=== PATIENT | male | born 1950 | race Caucasian/White ===

== ENCOUNTER → 2019-02-01 14:56 | Outpatient (CLI) | payer MEDICARE, SELFPAY ==
[2015-01-17 04:03] VITALS: BMI 32.4
[2019-02-01 17:59] LABS: AST(SGOT) 27 U/L (15-37); Alanine Aminotransfer ALT/SGPT 36 U/L (16-61); Albumin, Serum 4.1 g/dL (3.2-5.0); Alkaline Phosphatase 56 U/L (45-117); Bilirubin, Direct 0.14 mg/dL (0.00-0.30); Globulin 3.9 g/dL (2.2-4.2)
[2019-02-05 17:13] LABS: Comment 1a (.)
[2019-02-06 11:18] LABS: AFP, Tumor Marker 1.3 ng/mL (0.0-8.3)
[2019-03-21 17:18] LABS: Hepatitis C Genotype 1a
== END ==
PROVIDERS: Family Provider Family Medicine; PCP Family Medicine; Referring Provider Internal Medicine Gastroenterology; Visit Provider Internal Medicine Gastroenterology
DX: B19.20 Unspecified viral hepatitis C without hepatic coma (principal)
CPT/HCPCS: 36415; 80076; 82105; 87902

== ENCOUNTER → 2020-11-19 12:34 | Outpatient (CLI) | payer MEDICARE, SELFPAY ==
[2020-10-30 09:49] VITALS: BMI 31.8
--- NOTE | 2020-11-19 12:38 | ECHOD_ITS ---
Reason For Study: Syncope Procedure This was a 2D Doppler, Color Flow transthoracic echocardiogram. Left Ventricle Normal LV size. Left ventricular systolic function is normal. The estimated ejection fraction is 65 %. Stage 1 diastolic dysfunction. No regional wall motion abnormalities noted. Right Ventricle Normal RV size. Normal systolic function. Atria The left atrium is moderately enlarged. Normal right atrium. Bubble contrast study negative for right to left interatrial shunt. Mitral Valve Normal mitral valve. Mild (1+) eccentric mitral valve insufficiency. Tricuspid Valve Normal tricuspid valve. Mild tricuspid valve insufficiency. Pulmonary artery systolic pressure is 30 mmHg. Aortic Valve Trisinus/trileaflet aortic valve. Mild focal aortic valve calcification. Pulmonic Valve Normal pulmonic valve. Great Vessels Normal aortic root. The pulmonary artery is normal size. Normal inferior vena cava. Pericardium/Pleural No pericardial effusion. Medication 22 gauge I.V. with prn adaptor inserted into right arm. Performed a rapid injection of agitated mix of 9 cc saline and 1cc air to assess for atrial septal defect. MMode/2D Measurements & Calculations LVIDd: 5.4 cm IVSd: 1.1 cm LA dimension: 4.2 cm LVIDs: 3.9 cm LVPWd: 0.89 cm FS: 28.2 % LAV(MOD-bp): 94.0 ml LA A4 area: 27.1 cm2 RA A4 area: 15.6 cm2 LAV(MOD-bp) Indexed: 42.2 ml/m2 LAV(MOD-sp2): 89.7 ml LAV(MOD-sp4): 91.2 ml Time Measurements MV dec time: 0.28 sec Doppler Measurements & Calculations MV E max cosmo: 65.7 cm/sec Lat Peak E' Cosmo: 6.6 cm/sec Med Peak E' Cosmo: 7.1 cm/sec MV A max cosmo: 84.1 cm/sec E/E' lat: 9.9 E/E' med: 9.3 MV E/A: 0.78 MV V2 max: 79.6 cm/sec MV P1/2t max cosmo: 57.6 cm/sec Ao V2 max: 165.0 cm/sec MV max P.5 mmHg MV P1/2t: 106.1 msec Ao max P.9 mmHg MV V2 mean: 43.3 cm/sec MV dec slope: 159.0 cm/sec2 MV mean P.87 mmHg MV V2 VTI: 21.8 cm MVA(P1/2t): 2.1 cm2 LV V1 max: 81.9 cm/sec PA V2 max: 85.7 cm/sec TR max cosmo: 257.3 cm/sec LV V1 max P.7 mmHg TR max P.5 mmHg Interpretation Summary Normal LV size. Left ventricular systolic function is normal. The estimated ejection fraction is 65 %. Mild tricuspid valve insufficiency. Pulmonary artery systolic pressure is 30 mmHg. Stage 1 diastolic dysfunction. The left atrium is moderately enlarged. Bubble contrast study negative for right to left interatrial shunt. Ordering Physician: Braeden Flores Referring Physician: Julio Cesar Abbasi Performed By: Desmond Mcclellan RCS
--- NOTE | 2020-11-19 12:38 | CDU_ITS ---
Reason For Study: Syncope Rt. Velocities/BP Lt. Velocities/BP Prox CCA 141.1/18.2 cm/sec. Prox CCA 72.1/17.3 cm/sec. Mid CCA 81.4/16.3 cm/sec. Mid CCA 80.6/22 cm/sec. Dist CCA 67.9/15.1 cm/sec. Dist CCA 57.9/14.5 cm/sec. Prox ICA 55.3/11.3 cm/sec. Prox ICA 58.6/14.6 cm/sec. Mid ICA 64/25.6 cm/sec. Mid ICA 50.9/16.8 cm/sec. Dist ICA 60.8/20.1 cm/sec. Dist ICA 66.3/24.5 cm/sec. Rt. ICA/CCA = 0.8. Lt. ICA/CCA = 0.9. Prox ECA 122.9/17 cm/sec. Prox ECA 84.9/13.5 cm/sec. Rt. Vert. 32.2/10.9 cm/sec. Lt. Vert. 38.8/15.7 cm/sec. Right Extracranial There is homogeneous, smooth atherosclerotic plaque noted in the right common carotid artery. There is heterogeneous, irregular atherosclerotic plaque noted in the right internal carotid artery. There is heterogeneous, irregular atherosclerotic plaque noted in the right external carotid artery. Antegrade flow is noted in the right vertebral artery. Left Extracranial There is homogeneous, smooth atherosclerotic plaque noted in the left common carotid artery. There is heterogeneous, irregular atherosclerotic plaque noted in the left internal carotid artery. There is heterogeneous, irregular atherosclerotic plaque noted in the left external carotid artery. Antegrade flow is noted in the left vertebral artery. Procedure Carotid Duplex 94412. This is a Carotid Duplex examination using B-mode, color flow and specral Doppler. Exam performed in department. Interpretation Summary Irregular calcific plaque at the distal right common carotid and proximal right internal and external carotid arteries <50% stenosis right internal carotid <50% stenosis right external carotid Irregular calcific plaque with shadowing at the distal left common carotid and proximal left internal and external carotid arteries <50% stenosis left internal carotid <50% stenosis left external carotid Patent and antegrade vertebrals bilaterally Ordering Physician: Braeden Flores Referring Physician: Julio Cesar Abbasi Performed By: Maria E Salinas RVT
== END ==
PROVIDERS: PCP Family Medicine; Referring Provider Internal Medicine Cardiovascular Disease; Visit Provider Internal Medicine Cardiovascular Disease
DX: R55 Syncope and collapse (principal)
CPT/HCPCS: 93306; 93880; A4216

== ENCOUNTER 2022-03-29 04:59 | Emergency (ER) | payer MEDICARE, SELFPAY ==
[2022-03-29] VITALS (8 sets, daily range): BP systolic 120–174; BP diastolic 74–100; PULSE 71–88; RESP 13–22; TEMP 35.9–36.8; O2SAT 85–98; BMI 32.1
[2022-03-29] MEDS: dexAMETHasone 10 MG/ML Vial IV (05:14)
[2022-03-29] MEDS: HYDROmorphone 1 MG/ML Syringe IV ×4 (05:14→06:55)
[2022-03-29] MEDS: Ondansetron 4 MG/2 ML Vial IV (05:14)
--- NOTE | 2022-03-29 05:21 | CT_ITS ---
STUDY: CT LUMBAR SPINE WITHOUT CONTRAST REASON FOR EXAM: Male, 71 years old. post operative pain / ? Hematoma RADIATION DOSAGE (If Supplied By Facility): CTDIvol = ( 26.25 ) mGy, DLP = ( 795.37 ) mGycm TECHNIQUE: The patient was scanned in a multi detector CT scanner. High resolution transaxial imaging was performed. Images were obtained from to . Sagittal and coronal images were reconstructed. Individualized dose optimization techniques were used for this CT. COMPARISON: None FINDINGS: Normal lumbar lordosis. There is no substantial scoliosis. Normal vertebrae of the lumbar spine. L1-2, L2-3, L5-S1: Normal endplates. Normal disc height and morphology. Normal bilateral facet joints. Normal central canal and bilateral lateral recesses. Normal bilateral intervertebral neural foramina. L3-4, L4-5: Endplate spondylosis. Bilateral laminectomy Decreased disc height and small circumferential disc bulge. Degenerative changes of the bilateral facet joints. Mild narrowing of the bilateral intervertebral neural foramina. Normal visualized paraspinous soft tissue structures. CT/Spine Lumbar without Contrast IMPRESSION: Multilevel degenerative changes, as described above. Electronically Signed: Clarke Roy MD at 6:11 EDT ,
--- NOTE | 2022-03-29 05:22 | EDS_ITS ---
HPI History of Present Illness Chief Complaint: Back Narrative Narrative: Patient is a 71-year-old male who had back surgery at an outside facility 9 days ago. He states that during the surgery they nicked something and he had to stay a few extra days in the hospital. He states he has been doing well and he denies any fevers or chills or bowel or bladder dysfunction. He states she has been no trauma or excessive activity. He reports he was able to go to bed yesterday but then awoke around 4 in the morning with severe pain in his low back which radiates into his right buttocks region. Secondary to the sudden onset of increased pain and his recent surgery he was concerned and therefore presents for evaluation. [facility] Medical History Anxiety Essential (primary) hypertension Hepatitis A History of fractured rib (08/12/20) Osteoarthritis Home Medications amlodipine 10 mg tablet 10 mg PO DAILY 10/28/20 [History Last Taken 03/28/22] omega-3 fatty acids 1,000 mg capsule 1,000 mg PO DAILY 10/28/20 [History Last Taken 03/28/22] trazodone 150 mg tablet 150 mg PO QHS tab 10/30/20 [History Last Taken 03/28/22] docusate sodium 100 mg PO BID 03/29/22 [History Last Taken 03/28/22] gabapentin 600 mg PO TID 03/29/22 [History Last Taken 03/28/22] lisinopril 10 mg PO DAILY 03/29/22 [History Last Taken 03/28/22] methocarbamol 750 mg PO Q6H PRN PRN 03/29/22 [History Last Taken Unknown] oxycodone-acetaminophen 1 tab PO Q6H PRN PRN 03/29/22 [History Last Taken Unknown] Allergy/AdvReac Type Severity Reaction Status Date / Time diltiazem [From Cardizem] AdvReac unknown Verified 10/30/20 09:48 losartan [From Hyzaar] AdvReac unknown Verified 10/30/20 09:48 metoprolol [From Lopressor] AdvReac unknown Verified 10/30/20 09:48 valsartan [From Diovan] AdvReac unknown Verified 10/30/20 09:48 Family History Mother Heart disease Cancer breast Sister Heart disease Surgical History (Updated 03/29/22 @ 06:[address] Luis Angel Whitney DO) History of elbow surgery History of hip replacement History of lumbar laminectomy for spinal cord decompression History of shoulder surgery Social History (Updated 10/30/20 @ 10:[address] Braeden Flores MD) Smoking Status: Former smoker quit date: 11/22/92 pack-years: 46 alcohol intake: former year quit: 1991 ROS ROS ED Constitutional Constitutional ED: Denies chills or fever(s) ENT ENT ED: Denies sore throat Cardiovascular Cardiovascular: Denies chest pain Respiratory/Chest Respiratory/Chest: Denies cough or dyspnea Gastrointestinal Gastrointestinal: Denies abdominal pain, diarrhea, nausea or vomiting Genitourinary Genitourinary ED: Denies dysuria or hematuria Musculoskeletal Musculoskeletal: Reports back pain; Denies myalgias Integumentary Denies rash Neurologic Neurologic: Reports paresthesias and weakness; Denies headache(s) Hematologic/Lymphatic Hematologic/Lymphatic: Denies easy bleeding or easy bruising EXAM Physical Exam Const Vital Signs: 03/29/22 05:00 03/29/22 06:34 03/29/22 07:20 Temperature 96.6 F L 98.3 F Temperature Source Temporal Temporal Pulse Rate 78 74 71 Respiratory Rate 22 H 20 H 16 Blood Pressure 174/100 H 164/81 H 124/75 H Blood Pressure Mean 124 108 91 Pulse Ox 98 96 96 Oxygen Delivery Method Room Air Room Air Oxygen Flow Rate (L/min) 03/29/22 07:40 03/29/22 08:04 Temperature Temperature Source Pulse Rate Respiratory Rate Blood Pressure Blood Pressure Mean Pulse Ox 96 97 Oxygen Delivery Method Nasal Cannula Nasal Cannula Oxygen Flow Rate (L/min) 4 2 Positive well nourished and well developed General Appearance ED: well developed Eyes PERRL and EOMs intact bilaterally Neck supple Resp normal respiratory effort and clear to auscultation bilaterally Cardio regular rate and regular rhythm Rate: other Other Details: Radial pulses are plus 2 out of 4 bilaterally are equal and symmetric GI non-tender, non-distended and no masses GI Narrative: Bowel sounds are hypoactive. No voluntary guarding or rigidity. No pulsatile mass or fluid wave. Palpation: soft Narrative: Rectal tone is normal Back/Spine Back/Spine Narrative: Patient has postsurgical incision to the upper/mid lumbar region. There is soft tissue swelling around the incision as well as mild ooze of blood from the uppermost section of the surgical incision. Despite these changes there is no surrounding erythema or severe warmth no lymphangitic streaking. Extremity Extremity Narrative: Patient has mild saddle anesthesia present but does report that he believes this is been chronic in nature. Patellar reflexes are plus 1 out of 4 bilaterally. Straight leg raise is negative. No clonus or Babinski noted. Neuro oriented x3 and CN's II-XII intact bilaterally Sensorium / Orientation: alert Psych mental status grossly normal Skin no rashes or lesions noted Skin Narrative: Postsurgical changes to the back as documented above MDM MDM MDM Narrative Medical decision making narrative: Patient presented to the ER hypertensive but otherwise afebrile and in no acute distress. She had surgery 9 days ago and there was concern for postoperative infection as a cause of his worsening pain but also as he is got some swelling around the surgical site with mild ooze of serosanguineous fluid I have concern that he could be developing a hematoma. Secondary to this basic blood work and a noncontrast CT were ordered. Blood work revealed no white count no left shift no elevation to his CRP or ESR and his lactic was minimally elevated by 0.1 not consistent with acute infection. The CT scan showed postoperative changes as well as degeneration but no obvious fluid collection or neurologic. The case was discussed with his neurosurgeon Dr. Calderón. At this time he recommends trying to control the patient's pain but he agrees that if the pain is intractable and the patient is not able to ambulate that he could be sent to their facility for further care. He stated that if this was needed patient can be admitted to medicine service with him on as consult. The patient was given a total of 4 mg of IV Dilaudid as well as 10 mg of IV Decadron. While at rest the patient did report improvement of his pain from a 9/10 down to a 5. We attempted to ambulate the patient with a walker which he uses at home but he was unable to do so. Therefore at this time as the patient still having persistent pain and is unable to ambulate he will have to be transferred to [facility] for continued care and further evaluation. Lab Data Attestation: I reviewed the patient's lab results. Labs: Laboratory Results - last 24 hr 03/29/22 03/29/22 03/29/22 05:08 05:08 05:08 WBC 7.1 RBC 4.49 L Hgb 14.4 Hct 42.7 MCV 95.1 H MCH 32.1 H MCHC 33.7 RDW Std Deviation 42.0 RDW Coeff of Matthew 11.9 Plt Count 256 MPV 9.4 Immature Gran % (Auto) 0.400 Neut % (Auto) 50.5 Lymph % (Auto) 28.1 [place] % (Auto) 15.1 H Eos % (Auto) 4.8 Baso % (Auto) 1.1 H Absolute Neuts (auto) 3.6 Absolute Lymphs (auto) 1.99 Nucleated RBC % 0 ESR 10 PT INR APTT Sodium 136 Potassium 3.9 Chloride 104 Carbon Dioxide 23.0 Anion Gap 9 BUN 19 H Creatinine 1.07 Estim Creat Clear Calc 66.46 Est GFR (MDRD) Af Amer 87 Est GFR (MDRD) Non-Af 72 BUN/Creatinine Ratio 17.8 Glucose 123 H Lactic Acid 2.1 H* Calcium 8.8 C-React Prot Ext Range < 2.90 03/29/22 05:25 WBC RBC Hgb Hct MCV MCH MCHC RDW Std Deviation RDW Coeff of Matthew Plt Count MPV Immature Gran % (Auto) Neut % (Auto) Lymph % (Auto) [place] % (Auto) Eos % (Auto) Baso % (Auto) Absolute Neuts (auto) Absolute Lymphs (auto) Nucleated RBC % ESR PT 13.2 INR 1.0 APTT 33.1 Sodium Potassium Chloride Carbon Dioxide Anion Gap BUN Creatinine Estim Creat Clear Calc Est GFR (MDRD) Af Amer Est GFR (MDRD) Non-Af BUN/Creatinine Ratio Glucose Lactic Acid Calcium C-React Prot Ext Range Radiography Diagnostic Testing: Clinical Impression(s) from Imaging Studies Lumbar Spine CT 03/29/22 05:21 IMPRESSION: Multilevel degenerative changes, as described above. Electronically Signed: Clarke Roy MD at 6:11 EDT , Discharge Plan Triage Chief Complaint: Back ED Provider: Andes,Luis Angel Dx/Rx/DC Orders Clinical Impression: Intractable back pain, History of lumbar laminectomy, Essential (primary) hypertension Prescriptions: No Action trazodone 150 mg tablet 150 mg PO QHS RF: 0 amlodipine 10 mg tablet 10 mg PO DAILY RF: 0 omega-3 fatty acids 1,000 mg capsule 1,000 mg PO DAILY RF: 0 oxycodone-acetaminophen 5-325 mg tablet 1 tab PO Q6H PRN PRN (Reason: Pain) RF: 0 methocarbamol 750 mg Tablet 750 mg PO Q6H PRN PRN (Reason: Muscle Spasm) RF: 0 docusate sodium 100 mg Capsule 100 mg PO BID RF: 0 gabapentin 300 mg capsule 600 mg PO TID RF: 0 lisinopril 10 mg tablet 10 mg PO DAILY RF: 0 Primary Care Provider: Julio Cesar Abbasi Referrals: Julio Cesar Abbasi MD [Primary Care Provider] - Disposition Disposition: Acute Care Hospital Discharge Location: [facility]
[2022-03-29 05:26] LABS: Erythrocyte Sedimentation Rate 10 mm/hr (0-20)
[2022-03-29 05:28] LABS: Absolute Lymphocyte Count 1.99 X10^3/uL (0.83-4.51); Absolute Neutrophil Count 3.6 X10^3/uL (2.0-7.7); Basophil# 0.08 X10^3/uL; Basophil% 1.1 % (0-1); Eosinophil# 0.34 X10^3/uL; Eosinophils% 4.8 % (0-5); Hematocrit 42.7 % (40-54); Hemoglobin 14.4 g/dL (13.0-16.5); Lymphocyte # 1.99 X10^3/ul (0.83-4.51); Lymphocyte % 28.1 % (19-41); Mean Corp Hgb Conc 33.7 g/dL (32-36); Mean Corpuscular Hgb 32.1 pg (27.0-32.0); Mean Corpuscular Volume 95.1 fL (80-94); Mean Platelet Vol. 9.4 fl (6.2-12.0); Monocyte# 1.07 X10^3/uL; Monocyte% 15.1 % (0-10); NRBC Flagged by Analyzer 0 % (0-5); Neutrophil # 3.56 X10^3/uL (2.7-7.7); Neutrophil % 50.5 % (47-70); Platelet Count 256 K/mm3 (150-450); RBC Distribution Width CV 11.9 % (11.6-14.6); Red Blood Count 4.49 M/mm3 (4.6-6.2); White Blood Count 7.1 K/mm3 (4.4-11.0)
[2022-03-29 05:42] LABS: Prothrombin Time (Protime)PT. 13.2 SECONDS (11.7-14.9)
[2022-03-29 05:44] LABS: Partial Thromboplast Time 33.1 Seconds (24.1-36.2)
[2022-03-29 05:49] LABS: Anion Gap 9 (5-15); BUN 19 mg/dL (7-18); BUN/Creat Ratio 17.8 RATIO (10-20); CRP < 2.90 mg/L (0.0-3.0); Calcium,Total 8.8 mg/dL (8.5-10.1); Chloride 104 mmol/L (98-107); Creatinine, Serum 1.07 mg/dL (0.70-1.30); EST Glomerular Filtration Rate 72 mL/min (>60); Est Glom Filt Rate - Afr Amer 87 mL/min (>60); Estimated Creatinine Clearance 66.46 ml/min; Glucose 123 mg/dL (74-106); Potassium 3.9 mmol/L (3.5-5.1); Sodium Level 136 mmol/L (136-145)
[2022-03-29 05:54] LABS: Lactic Acid 2.1 mmol/L (0.4-1.9)
--- NOTE | 2022-03-29 07:19 | NURSING ---
CALLED [facility] TO START TRANSFER TO [facility]. FAXED FACESHEET CALLED CT TO TRANSMIT
--- NOTE | 2022-03-29 08:10 | NURSING ---
0750 CALLED [facility], TALKED TO REEMA. NO DOC YET
--- NOTE | 2022-03-29 08:11 | NURSING ---
CALLED [facility]. TALKED TO REEMA. SHE WILL CHECK TO SEE ABOUT MEDICINE
--- NOTE | 2022-03-29 08:40 | NURSING ---
CALLED TRANSFER LINE, TALKED TO REEMA. DR MCCRARY ISN'T ANSWERING HIS PAGES OR CALLS. ALL [facility] ARE FULL. NO BEDS
--- NOTE | 2022-03-29 08:58 | NURSING ---
DR PORTILLO FOR DR LUCIANO
--- NOTE | 2022-03-29 09:04 | NURSING ---
patient asked for sleep aide. Pt has had a lot of pain medication, and is aware we cannot give him another medication like a sleep aide to it. He is now back on room air but had been on NC O2.
--- NOTE | 2022-03-29 09:15 | NURSING ---
Called friends that were with patient earlier, at patient's request. Ray and Jocelin Macedo. Called the number he gave me in his phone but it rings to his phone.
--- NOTE | 2022-03-29 09:18 | SUR.HOLD ---
Jocelin Macedo can be reached at [phone]. She is updated.
[2022-03-29 09:19] LABS: Reflex Lactate? Y
--- NOTE | 2022-03-29 09:46 | NURSING ---
[facility] B23 NURSE TO NURSE [phone]
--- NOTE | 2022-03-29 09:51 | NURSING ---
CALLED [facility], ETA IS 20 MIN
--- NOTE | 2022-03-29 10:13 | ED.RN ---
LACTIC ACID 3.0. DR CORTES
== END 2022-03-29 10:24 | disposition short-term general hospital (02) ==
PROVIDERS: Emergency Provider Emergency Medicine; PCP Family Medicine; Visit Provider Emergency Medicine
DX: M54.9 Dorsalgia, unspecified (principal); Z87.891 Personal history of nicotine dependence; I10 Essential (primary) hypertension; Z98.890 Other specified postprocedural states; F41.9 Anxiety disorder, unspecified; M19.90 Unspecified osteoarthritis, unspecified site; Z79.899 Other long term (current) drug therapy
CPT/HCPCS: 72131; 80048; 83605; 85025; 85610; 85652; 85730; 86140; 87811; 96374; 96375; 96376; 99285; A4216; J2405

== ENCOUNTER 2022-10-27 13:20 | Emergency (ER) | payer MEDICARE, SELFPAY ==
[2022-10-27 13:21] VITALS: BP 143/94; PULSE 72; RESP 15; TEMP 36.6; O2SAT 98; BMI 30.7
--- NOTE | 2022-10-27 13:56 | CT_ITS ---
STUDY: CT CHEST WITHOUT CONTRAST REASON FOR EXAM: Male, 72 years old. Left rib trauma following a fall. RADIATION DOSAGE (If Supplied By Facility): CTDIvol = ( 15.23 ) mGy, DLP = ( 514.43 ) mGycm TECHNIQUE: Transaxial imaging was performed without the administration of intravenous contrast material. Individualized dose optimization techniques were used for this CT. COMPARISON: Comparison is made with prior study dated 01/17/2015. FINDINGS: CHEST The lungs are normal. There is no demonstrated pleural abnormality. There are calcifications of the coronary arteries. There are multiple small lymph nodes within the mediastinum, which are normal in size and morphology most compatible with reactive lymph hyperplasia. Normal hilar regions. Normal unenhanced pulmonary arteries. There is atherosclerotic calcification of the aortic arch with tortuosity and elongation of the aortic arch and descending thoracic aorta. There are multi-level degenerative changes of the thoracic spine. The patient is status post right shoulder replacement. There is a 1 cm cyst in the left lobe of the liver. Small hiatal hernia. Hyperplasia of the left adrenal gland. CT/Chest without Contrast IMPRESSION: No acute abnormality is seen. Electronically Signed: Joel Abraham MD at 14:58 EST ,
--- NOTE | 2022-10-27 13:57 | EDS_ITS ---
HPI History of Present Illness Chief Complaint: Fall Informant: patient Narrative Narrative: 72-year-old male presents to the emergency room with left blunt rib trauma. Patient states he fell in his bathroom last night striking his left mid axillary ribs on the bathtub. He denies any other injuries. He notes pain with movement. He denies any breathing problems. No hematuria. [facility] Medical History Anxiety Essential (primary) hypertension Hepatitis A History of fractured rib (08/12/20) Osteoarthritis Home Medications amlodipine 10 mg tablet 10 mg PO DAILY blood pressure 10/28/20 [History Last Taken 03/28/22] omega-3 fatty acids 1,000 mg capsule 1,000 mg PO DAILY supplement 10/28/20 [History Last Taken 03/28/22] trazodone 150 mg tablet 150 mg PO QHS sleep 10/30/20 [History Last Taken 03/28/22] docusate sodium 100 mg capsule 100 mg PO BID stool softener 03/29/22 [History Last Taken 03/28/22] gabapentin 300 mg capsule 600 mg PO TID pain management 03/29/22 [History Last Taken 03/28/22] lisinopril 10 mg tablet 10 mg PO DAILY blood pressure 03/29/22 [History Last Taken 03/28/22] methocarbamol 750 mg tablet 750 mg PO Q6H PRN PRN Muscle Spasm 03/29/22 [History Last Taken Unknown] oxycodone-acetaminophen 5 mg-325 mg tablet 1 tab PO Q6H PRN PRN Pain 03/29/22 [History Last Taken Unknown] oxycodone-acetaminophen 5 mg-325 mg tablet 1 tab PO Q6H PRN PRN pain 5 days #20 TABLETS 10/27/22 [Rx Last Taken Unknown] Allergy/AdvReac Type Severity Reaction Status Date / Time diltiazem [From Cardizem] AdvReac unknown Verified 10/27/22 13:21 losartan [From Hyzaar] AdvReac unknown Verified 10/27/22 13:21 metoprolol [From Lopressor] AdvReac unknown Verified 10/27/22 13:21 valsartan [From Diovan] AdvReac unknown Verified 10/27/22 13:21 Family History Mother Heart disease Cancer breast Sister Heart disease Surgical History History of elbow surgery History of hip replacement History of lumbar laminectomy for spinal cord decompression History of shoulder surgery Social History Smoking Status: Former smoker quit date: 11/22/92 pack-years: 46 alcohol intake: former year quit: 1991 ROS ROS ED Constitutional Constitutional ED: Denies chills, fever(s) or weight loss Eyes Eyes: Denies change in vision or diplopia ENT ENT ED: Denies ear pain, rhinorrhea or sore throat Cardiovascular Cardiovascular: Reports chest pain; Denies orthopnea, palpitations or racing heartbeat Respiratory/Chest Respiratory/Chest: Denies cough, dyspnea or orthopnea Gastrointestinal Gastrointestinal: Denies abdominal pain, diarrhea, nausea or vomiting Genitourinary Genitourinary ED: Denies dysuria, hematuria or urinary frequency Musculoskeletal Musculoskeletal: Denies arthralgias or myalgias Integumentary Denies abscess or rash Neurologic Neurologic: Denies headache(s) or weakness Psychiatric Psychiatric: Denies anxiety, depression, suicidal ideation or suicidal thoughts Endocrine Endocrinology: Denies polydipsia, polyphagia or polyuria Allergic/Immunologic Allergic/Immunologic ED: Denies mouth swelling, tongue swelling or urticaria EXAM Physical Exam Const Vital Signs: 10/27/22 13:21 Temperature 97.8 F Temperature Source Temporal Pulse Rate 72 Respiratory Rate 15 Blood Pressure 143/94 H Blood Pressure Mean 110 Pulse Ox 98 Oxygen Delivery Method Room Air Positive well nourished and well developed General Appearance ED: well developed HEENT Reports normocephalic, head/scalp atraumatic and moist mucous membranes Eyes PERRL and EOMs intact bilaterally Neck no lymphadenopathy, supple and no JVD Chest Wall Chest Narrative: Left mid axillary ribs are tender to palpation over the lower third of the ribs. I do not appreciate any crepitance. There is no ecchymosis noted. No obvious deformity Resp normal respiratory effort and clear to auscultation bilaterally Cardio regular rate, regular rhythm and no murmurs GI normal to inspection, nondistended, normoactive bowel sounds and non-tender Palpation: soft Back/Spine no CVA tenderness and normal ROM Extremity normal to inspection General Extremety ED: Negative for edema General Extremity: Negative for edema Neuro oriented x3 and CN's II-XII intact bilaterally Sensorium / Orientation: alert Motor Exam: strength 5/5 throughout Psych mental status grossly normal Mood & Affect: Negative for depressed or tearful Skin no rashes or lesions noted and no wounds MDM MDM MDM Narrative Medical decision making narrative: CT of the chest noncontrast was obtained which does show a obvious rib fracture on the left lower side. There is however no hemo or pneumothorax. No obvious injury to the spleen or the kidney. Patient received a dose of Toradol. I will write for him to have pain medication at home. Return if worsening or concerns Discharge Plan Triage Chief Complaint: Fall ED Provider: Cm Mejia Dx/Rx/DC Orders Clinical Impression: Left rib fracture Instructions: ED Rib Fracture Prescriptions: New oxycodone-acetaminophen [oxycodone-acetaminophen] 5-325 mg tablet 1 tab PO Q6H PRN PRN (Reason: pain) 5 Days Qty: 20 0RF No Action trazodone 150 mg tablet 150 mg PO QHS amlodipine 10 mg tablet 10 mg PO DAILY omega-3 fatty acids 1,000 mg capsule 1,000 mg PO DAILY oxycodone-acetaminophen 5-325 mg tablet 1 tab PO Q6H PRN PRN (Reason: Pain) methocarbamol 750 mg Tablet 750 mg PO Q6H PRN PRN (Reason: Muscle Spasm) docusate sodium 100 mg Capsule 100 mg PO BID gabapentin 300 mg capsule 600 mg PO TID lisinopril 10 mg tablet 10 mg PO DAILY Primary Care Provider: Marbella Zaidi Referrals: Julio Cesar Abbasi MD [Non-Staff] - 1-2 Weeks Disposition Disposition: Home, Self Care
[2022-10-27] MEDS: Ketorolac 60 MG/2 ML Vial IM (14:06)
== END 2022-10-27 15:03 | disposition home or self-care (01) ==
PROVIDERS: Emergency Provider Emergency Medicine; PCP Physician Assistant; Visit Provider Emergency Medicine
DX: S22.32XA Fracture of one rib, left side, initial encounter for closed fracture (principal); I10 Essential (primary) hypertension; Z87.891 Personal history of nicotine dependence; W19.XXXA Unspecified fall, initial encounter
CPT/HCPCS: 71250; 96372; 99282

== ENCOUNTER 2023-01-07 20:21 | Emergency (ER) | payer MEDICARE, SELFPAY ==
[2023-01-07 20:41] VITALS: BP 151/98; PULSE 97; RESP 18; TEMP 36.6; O2SAT 99; BMI 31.8
[2023-01-07] MEDS: Ondansetron 4 MG/2 ML Vial IV (21:20)
[2023-01-07] MEDS: Morphine 4 MG/ML Syringe 6 MG IV ×2 (21:20→23:30)
--- NOTE | 2023-01-07 21:27 | ED.VIS.FALL ---
HPI HPI - Fall History of Present Illness Chief Complaint: Fall Detail of Chief Complaint: Complaint right hip pain. History of prosthesis. Informant: patient Occured/Mechanism Occurred: Today Mechanism/Context: Yes same level fall and Yes slip Usually ambulates: Without assistance Pain/Injury Location: Suspected right hip dislocation. Quality of Pain: Sharp and Stabbing Current Severity: Severe Maximum Severity: Severe Associated Symptoms Associated Symptoms: Positive for Inability to ambulate; Negative for Parasthesias, Weakness, Loss of function, Loss of consciousness or Amnesia Narrative Narrative: 72-year-old male has a right hip prosthesis that was done 6 years ago. Hip was replaced due to arthritis. Tonight he slipped in the shower and believes he may have dislocated his right hip. He fell and had trouble getting out of the shower because he was unable to stand on his right leg. No LOC. No head injury. Denies any other complaints. No recent illness. Prior similar symptoms: No Recent Illness/Hospitalization: No [facility] Medical History Anxiety Essential (primary) hypertension Hepatitis A History of fractured rib (08/12/20) Osteoarthritis Home Medications amlodipine 10 mg tablet 10 mg PO DAILY blood pressure 10/28/20 [History Last Taken 03/28/22] omega-3 fatty acids 1,000 mg capsule 1,000 mg PO DAILY supplement 10/28/20 [History Last Taken 03/28/22] trazodone 150 mg tablet 150 mg PO QHS sleep 10/30/20 [History Last Taken 03/28/22] docusate sodium 100 mg capsule 100 mg PO BID stool softener 03/29/22 [History Last Taken 03/28/22] gabapentin 300 mg capsule 600 mg PO TID pain management 03/29/22 [History Last Taken 03/28/22] lisinopril 10 mg tablet 10 mg PO DAILY blood pressure 03/29/22 [History Last Taken 03/28/22] methocarbamol 750 mg tablet 750 mg PO Q6H PRN PRN Muscle Spasm 03/29/22 [History Last Taken Unknown] oxycodone-acetaminophen 5 mg-325 mg tablet 1 tab PO Q6H PRN PRN Pain 03/29/22 [History Last Taken Unknown] oxycodone-acetaminophen 5 mg-325 mg tablet 1 tab PO Q6H PRN PRN pain 5 days #20 TABLETS 10/27/22 [Rx Last Taken Unknown] Allergy/AdvReac Type Severity Reaction Status Date / Time diltiazem [From Cardizem] AdvReac unknown Verified 01/07/23 20:41 losartan [From Hyzaar] AdvReac unknown Verified 01/07/23 20:41 metoprolol [From Lopressor] AdvReac unknown Verified 01/07/23 20:41 valsartan [From Diovan] AdvReac unknown Verified 01/07/23 20:41 Family History Mother Heart disease Cancer breast Sister Heart disease Surgical History History of elbow surgery History of hip replacement History of lumbar laminectomy for spinal cord decompression History of shoulder surgery Social History Smoking Status: Former smoker quit date: 11/22/92 pack-years: 46 alcohol intake: former year quit: 1991 ROS ROS ED ROS Narrative Denies recent illness. Review of Systems ROS Unobtainable: Denies due to encephalopathy Constitutional Constitutional ED: Denies chills or fever(s) Eyes Eyes: Denies blurry vision ENT ENT ED: Denies ear pain Cardiovascular Cardiovascular: Denies chest pain or palpitations Respiratory/Chest Respiratory/Chest: Denies cough Gastrointestinal Gastrointestinal: Denies abdominal pain Genitourinary Genitourinary ED: Denies dysuria Musculoskeletal Musculoskeletal: Denies arthralgias or back pain Integumentary Denies abscess Neurologic Neurologic: Denies headache(s) Psychiatric Psychiatric: Denies anxiety Endocrine Endocrinology: Denies polydipsia Hematologic/Lymphatic Hematologic/Lymphatic: Denies easy bleeding Allergic/Immunologic Allergic/Immunologic ED: Denies mouth swelling or tongue swelling EXAM Physical Exam Narrative Exam Narrative: 72-year-old male vital signs are stable afebrile. 6H EENT exam unremarkable atraumatic. Pupils round reactive light. C-spine nontender. Lungs clear to auscultation bilaterally. Heart regular rhythm rate about 95 no murmur. Chest wall nontender. Ribs nontender. Abdomen soft nontender. No peritoneal signs. Pelvic girdle intact. Right hip shortened and rotated externally. Concern for right hip dislocation. Knee ankle foot nontender. Right foot neurovascular intact. Left lower extremity unremarkable nontender. He has a small contusion and bruise on his right elbow but has full flexion extension of the elbow also supination and pronation. 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 Neurologically is awake and alert with no focal motor deficits. Back is nontender. Const Vital Signs: 01/07/23 20:41 01/07/23 20:45 01/07/23 22:11 Temperature 97.9 F 98 F Temperature Source Oral Oral Pulse Rate 97 86 Respiratory Rate 18 16 Respiratory Pattern Tachypnea Blood Pressure 151/98 H 144/97 H Blood Pressure Mean 115 112 Pulse Ox 99 99 Oxygen Delivery Method Room Air Room Air Positive well nourished and well developed; Negative for cachectic, contractures or unkempt General Appearance ED: well developed and NAD; Negative for unkempt, cachectic or contractures Nutritional Appearance: Negative for cachectic HEENT Reports normocephalic atraumatic; Negative for trauma, contusion, hematoma or tenderness Eyes PERRL and EOMs intact bilaterally General Eye ED: Negative for pale conjunctiva or scleral icterus Neck full ROM, no lymphadenopathy and supple General: Negative for tenderness Chest Wall inspection of chest normal and palpation of chest normal Resp normal respiratory effort, no retractions and clear to auscultation bilaterally Auscultation: Negative for rales, rhonchi or wheezes Cardio regular rate, regular rhythm, S1 normal heart sound, S2 normal heart sound and no murmurs GI non-tender, non-distended and no masses Inspection: Negative for abdominal distention Auscultation: normoactive bowel sounds Palpation: soft; Negative for guarding Back/Spine no CVA tenderness General Back: Negative for CVA tenderness Cervical Spine: Negative for cervical spine tenderness Thoracic Spine / Upper Back: Negative for ROM limited Lumbar Spine / Lower Back: Negative for lumbar spinal tenderness Neuro oriented x3, CN's II-XII intact bilaterally, moves all extremities and no focal motor deficits [place] Coma Scale: document GCS findings Spontaneous Obeys Commands Oriented 15 Sensorium / Orientation: alert, oriented to person, oriented to place and oriented to time; Negative for orientation impaired, confused, lethargic or stuporous Motor Exam: strength 5/5 throughout Psych mental status grossly normal and thought process normal Appearance: Negative for unkempt Attitude: No agitated Mood & Affect: Negative for depressed, anxious or tearful Skin Lesions: no lesions Rashes: no rashes MDM MDM MDM Narrative Medical decision making narrative: 72-year-old male slipped in the shower believe he may have dislocated his right prosthetic hip. X-ray will be obtained. Has been treated already with morphine 6 mg and Zofran. Will be given another dose of morphine 6 mg. X-ray to be obtained to rule out dislocation versus fracture. Patient treated with IV morphine 6 mg x 2. IV Zofran. He is much more comfortable. I went over his x-rays with him. He has a right periprosthetic femur fracture. I spoke to no doc on-call for orthopedics tonight Dr. Fajardo he typically does not do this type of fracture repair. I also spoke to Dr. Troy Olivier [facility]. The patient will be transferred to [facility] who is excepted him to the emergency department. Currently he is resting more comfortably at 10:25 PM. Lab Data Attestation: I reviewed the patient's lab results. Lab results narrative: CBC shows a white count of 9. H&H of 14 and 42. Platelets 257. BMP unremarkable. Gap 11. BUN 27 creatinine 1.25. Glucose 132. Labs: Laboratory Results - last 24 hr 01/07/23 01/07/23 22:00 22:00 WBC 9.0 RBC 4.48 L Hgb 14.6 Hct 42.4 MCV 94.6 H MCH 32.6 H MCHC 34.4 RDW Std Deviation 42.7 RDW Coeff of Matthew 12.3 Plt Count 257 MPV 9.7 Immature Gran % (Auto) 0.400 Neut % (Auto) 72.6 H Lymph % (Auto) 12.9 L Mills % (Auto) 10.7 H Eos % (Auto) 2.4 Baso % (Auto) 1.0 Absolute Neuts (auto) 6.5 Absolute Lymphs (auto) 1.16 Nucleated RBC % 0 Sodium 135 L Potassium 4.0 Chloride 102 Carbon Dioxide 22.0 Anion Gap 11 BUN 27 H Creatinine 1.25 Estim Creat Clear Calc 56.06 Est GFR (MDRD) Af Amer 73 Est GFR (MDRD) Non-Af 60 BUN/Creatinine Ratio 21.6 H Glucose 132 H Calcium 9.4 Radiography Diagnostic Testing: Clinical Impression(s) from Imaging Studies Chest X-Ray 01/07/23 21:50 IMPRESSION: No acute intrathoracic abnormality. Electronically Signed: Frieda Bell MD at 22:42 EST , Femur X-Ray 01/07/23 21:50 IMPRESSION: Complex fracture from the proximal to mid right femur with a large bone fragment displaced anteriorly to the femoral prosthesis. Prosthesis uncovering and displacement. Electronically Signed: Frieda Bell MD at 22:40 EST , Pelvis X-Ray 01/07/23 21:50 IMPRESSION: 1. Fracture of the proximal right femur around the femoral prosthesis component, with displacement and lateral protrusion of the distal 8 cm of the femoral prosthesis component, extending lateral to bone. 2. Intact pelvis. Electronically Signed: Frieda Bell MD at 22:37 EST , Right hip, pelvis and femur x-ray shows a right periprosthetic femur fracture. No dislocation. Pelvis shows no fracture. Multiple views interpreted by myself. Chest x-ray portable, single view, interpreted by myself shows no acute abnormality. Discharge Plan Dx/Rx/DC Orders Clinical Impression: Fall, Femur fracture, right, Periprosthetic fracture around internal prosthetic hip joint Disposition Disposition: Acute Care [facility]
[2023-01-07] MEDS: morphine 8 MG/ML Syringe 6 MG IV (21:44)
--- NOTE | 2023-01-07 21:50 | RAD_ITS ---
EXAM: XR RIGHT FEMUR, 2 VIEWS CLINICAL INDICATION: pain TECHNIQUE: 4 views. COMPARISON: None. FINDINGS: Complex fracture of the proximal to mid femur around the prosthesis component. There is a transverse fracture component in the proximal shaft and a long sagittal component in the anterior proximal to mid femur with a displaced anterior fracture fragment of roughly 27 cm in length. RAD/Femur Min 2 Views IMPRESSION: Complex fracture from the proximal to mid right femur with a large bone fragment displaced anteriorly to the femoral prosthesis. Prosthesis uncovering and displacement. Electronically Signed: Frieda Bell MD at 22:40 EST ,
--- NOTE | 2023-01-07 21:50 | RAD_ITS ---
EXAM: XR CHEST, 1 VIEW CLINICAL INDICATION: FALL TECHNIQUE: Frontal view of the chest. This report was created using [employer] report generation technology. COMPARISON: January 17, 2015. FINDINGS: LUNGS AND PLEURAL SPACES: Unremarkable. No consolidation or edema. No pneumothorax. No effusion. HEART: Unremarkable. Cardiac silhouette not enlarged. MEDIASTINUM: Central airways and mediastinal contour are unremarkable. BONES/JOINTS: Postoperative changes of the right shoulder are not fully included. SOFT TISSUES: Unremarkable. RAD/Chest 1 View IMPRESSION: No acute intrathoracic abnormality. Electronically Signed: Frieda eBll MD at 22:42 EST ,
--- NOTE | 2023-01-07 21:50 | RAD_ITS ---
EXAM: XR PELVIS, 1 OR 2 VIEWS CLINICAL INDICATION: injury TECHNIQUE: Frontal view of the pelvis. This report was created using [employer] report generation technology. COMPARISON: None. FINDINGS: BONES/JOINTS: There is fracture of the subtrochanteric region of the right femur around the femoral prosthesis, with cortical step-off laterally included on the pelvis exam. Confirmed with the distal 8 cm of the femoral prosthesis component external to the bone on the additional provided views of the femur. Transverse fracture line is seen more medial to the prosthesis on the AP view of the femur. The remainder of the pelvis is intact. Hip joint prosthesis components are intact. Severe degenerative changes of the left hip are noted with subchondral sclerosis and completely effaced superior and medial joint compartments. Sacroiliac joints are unremarkable. No widening of the pubic symphysis. SOFT TISSUES: Unremarkable. No soft tissue swelling or gas. RAD/Pelvis 1 or 2 Views IMPRESSION: 1. Fracture of the proximal right femur around the femoral prosthesis component, with displacement and lateral protrusion of the distal 8 cm of the femoral prosthesis component, extending lateral to bone. 2. Intact pelvis. Electronically Signed: Frieda Bell MD at 22:37 EST ,
--- NOTE | 2023-01-07 22:03 | CONS.ORTHO ---
HPI Consult Data Date of Consult: 01/07/23 HPI Narrative HPI Narrative: MIROSLAVA PALACIO, is a 72 M who presents with right periprosthetic femur fracture after a fall. Called by Dr. Pretty 10pm. [facility] Medical History Anxiety Essential (primary) hypertension Hepatitis A History of fractured rib (08/12/20) Osteoarthritis Home Medications amlodipine 10 mg tablet 10 mg PO DAILY blood pressure 10/28/20 [History Last Taken 03/28/22] omega-3 fatty acids 1,000 mg capsule 1,000 mg PO DAILY supplement 10/28/20 [History Last Taken 03/28/22] trazodone 150 mg tablet 150 mg PO QHS sleep 10/30/20 [History Last Taken 03/28/22] docusate sodium 100 mg capsule 100 mg PO BID stool softener 03/29/22 [History Last Taken 03/28/22] gabapentin 300 mg capsule 600 mg PO TID pain management 03/29/22 [History Last Taken 03/28/22] lisinopril 10 mg tablet 10 mg PO DAILY blood pressure 03/29/22 [History Last Taken 03/28/22] methocarbamol 750 mg tablet 750 mg PO Q6H PRN PRN Muscle Spasm 03/29/22 [History Last Taken Unknown] oxycodone-acetaminophen 5 mg-325 mg tablet 1 tab PO Q6H PRN PRN Pain 03/29/22 [History Last Taken Unknown] oxycodone-acetaminophen 5 mg-325 mg tablet 1 tab PO Q6H PRN PRN pain 5 days #20 TABLETS 10/27/22 [Rx Last Taken Unknown] Allergy/AdvReac Type Severity Reaction Status Date / Time diltiazem [From Cardizem] AdvReac unknown Verified 01/07/23 20:41 losartan [From Hyzaar] AdvReac unknown Verified 01/07/23 20:41 metoprolol [From Lopressor] AdvReac unknown Verified 01/07/23 20:41 valsartan [From Diovan] AdvReac unknown Verified 01/07/23 20:41 Family History Mother Heart disease Cancer breast Sister Heart disease Surgical History History of elbow surgery History of hip replacement History of lumbar laminectomy for spinal cord decompression History of shoulder surgery Social History Smoking Status: Former smoker quit date: 11/22/92 pack-years: 46 alcohol intake: former year quit: 1991 Vital Signs Vital Signs Vital Signs: 01/07/23 20:41 01/07/23 20:45 Temperature 97.9 F Temperature Source Oral Pulse Rate 97 Respiratory Rate 18 Respiratory Pattern Tachypnea Blood Pressure 151/98 H Blood Pressure Mean 115 Pulse Ox 99 Oxygen Delivery Method Room Air Weight Weight: 228 lb 9.91 oz Body Mass Index (BMI) 31.8 right verna prosthetic femur fracture around CARMELINA, [place] B2 classification Assessment & Plan Assessment/Plan (1) Right femoral fracture: PLAN: 72 M right verna prosthetic femur fracture [place] B2 needs revision to long stem porous coated diaphyseal fitting stem, possible cerclage wiring proximal segment. This would be performed typically by arthroplasty specialist. Recommended to consider asking Dr. Adame, if not, would need transfer to appropriate specialist. Dr. Pretty understanding, and will reach out to Dr. Olivier to discuss as they are in the same group. No further concerns or questions.
[2023-01-07 22:11] VITALS: BP 144/97; PULSE 86; RESP 16; TEMP 36.6; O2SAT 99
[2023-01-07 22:13] LABS: Absolute Lymphocyte Count 1.16 X10^3/uL (0.83-4.51); Absolute Neutrophil Count 6.5 X10^3/uL (2.0-7.7); Basophil# 0.09 X10^3/uL; Eosinophil# 0.22 X10^3/uL; Eosinophils% 2.4 % (0-5); Hematocrit 42.4 % (40-54); Hemoglobin 14.6 g/dL (13.0-16.5); Lymphocyte # 1.16 X10^3/ul (0.83-4.51); Lymphocyte % 12.9 % (19-41); Mean Corp Hgb Conc 34.4 g/dL (32-36); Mean Corpuscular Hgb 32.6 pg (27.0-32.0); Mean Corpuscular Volume 94.6 fL (80-94); Mean Platelet Vol. 9.7 fl (6.2-12.0); Monocyte# 0.96 X10^3/uL; Monocyte% 10.7 % (0-10); NRBC Flagged by Analyzer 0 % (0-5); Neutrophil # 6.52 X10^3/uL (2.7-7.7); Neutrophil % 72.6 % (47-70); Platelet Count 257 K/mm3 (150-450); RBC Distribution Width CV 12.3 % (11.6-14.6); RBC Distribution Width SD 42.7 fl (35.1-43.9); Red Blood Count 4.48 M/mm3 (4.6-6.2)
[2023-01-07 22:27] LABS: Anion Gap 11 (5-15); BUN 27 mg/dL (7-18); BUN/Creat Ratio 21.6 RATIO (10-20); Calcium,Total 9.4 mg/dL (8.5-10.1); Chloride 102 mmol/L (98-107); Creatinine, Serum 1.25 mg/dL (0.70-1.30); EST Glomerular Filtration Rate 60 mL/min (>60); Est Glom Filt Rate - Afr Amer 73 mL/min (>60); Estimated Creatinine Clearance 56.06 ml/min; Glucose 132 mg/dL (74-106); Sodium Level 135 mmol/L (136-145)
[2023-01-08 00:08] VITALS: BP 144/97; PULSE 86; RESP 16; TEMP 36.6; O2SAT 99
[2023-01-08 01:37] VITALS: BP 136/96; PULSE 86; RESP 16; O2SAT 98
[2023-01-08] MEDS: HYDROmorphone 1 MG/ML Syringe IV (01:39)
== END 2023-01-08 02:40 | disposition short-term general hospital (02) ==
PROVIDERS: Emergency Provider Emergency Medicine; PCP Physician Assistant; Visit Provider Emergency Medicine
DX: S72.001A Fracture of unspecified part of neck of right femur, initial encounter for closed fracture (principal); M97.01XA Periprosthetic fracture around internal prosthetic right hip joint, initial encounter; I10 Essential (primary) hypertension; Z87.891 Personal history of nicotine dependence; Z96.641 Presence of right artificial hip joint; Z20.822 Contact with and (suspected) exposure to COVID-19; W01.0XXA Fall on same level from slipping, tripping and stumbling without subsequent striking against object, initial encounter
CPT/HCPCS: 71045; 72170; 73552; 80048; 85025; 87811; 96374; 96375; 96376; 99285; A4216; J2405

== ENCOUNTER → 2023-01-18 | Outpatient (REF) | payer MEDICARE, SELFPAY ==
[2023-01-18 09:06] LABS: Absolute Lymphocyte Count 1.11 X10^3/uL (0.83-4.51); Absolute Neutrophil Count 5.8 X10^3/uL (2.0-7.7); Basophil# 0.08 X10^3/uL; Basophil% 0.9 % (0-1); Eosinophil# 0.54 X10^3/uL; Eosinophils% 6.1 % (0-5); Hematocrit 29.7 % (40-54); Hemoglobin 9.2 g/dL (13.0-16.5); Lymphocyte # 1.11 X10^3/ul (0.83-4.51); Lymphocyte % 12.6 % (19-41); Mean Corpuscular Hgb 30.7 pg (27.0-32.0); Mean Platelet Vol. 9.4 fl (6.2-12.0); Monocyte# 0.98 X10^3/uL; Monocyte% 11.1 % (0-10); NRBC Flagged by Analyzer 0 % (0-5); Neutrophil % 65.9 % (47-70); Platelet Count 409 K/mm3 (150-450); RBC Distribution Width CV 15.2 % (11.6-14.6); RBC Distribution Width SD 54.5 fl (35.1-43.9); White Blood Count 8.8 K/mm3 (4.4-11.0)
[2023-01-18 09:22] LABS: ALB/GLOB Ratio 0.7 RATIO (0.9-2.4); AST(SGOT) 20 U/L (15-37); Alanine Aminotransfer ALT/SGPT 23 U/L (16-61); Albumin, Serum 2.4 g/dL (3.2-5.0); Alkaline Phosphatase 50 U/L (45-117); Anion Gap 4 (5-15); BUN 21 mg/dL (7-18); BUN/Creat Ratio 23.1 RATIO (10-20); Calcium,Total 8.4 mg/dL (8.5-10.1); Chloride 106 mmol/L (98-107); Creatinine, Serum 0.91 mg/dL (0.70-1.30); EST Glomerular Filtration Rate 87 mL/min (>60); Est Glom Filt Rate - Afr Amer 105 mL/min (>60); Globulin 3.4 g/dL (2.2-4.2); Glucose 102 mg/dL (74-106); Potassium 4.6 mmol/L (3.5-5.1); Protein, Total 5.8 g/dL (6.4-8.2); Sodium Level 136 mmol/L (136-145)
== END ==
LOC: OLS.WHLTCC 04:00
PROVIDERS: PCP Physician Assistant; Visit Provider Internal Medicine
DX: R53.83 Other fatigue (principal); M97.01XD Periprosthetic fracture around internal prosthetic right hip joint, subsequent encounter; D62 Acute posthemorrhagic anemia; M62.81 Muscle weakness (generalized); Z47.89 Encounter for other orthopedic aftercare
CPT/HCPCS: 36415; 80053; 85025

== ENCOUNTER → 2023-02-04 | Outpatient (REF) | payer MEDICARE, SELFPAY ==
[2023-02-05 08:11] LABS: Color, Urine Yellow (Yellow); Glucose, Dipstick Normal (Normal); Ketone-Dipstick Negative (Negative); Leukocyte Esterase-Dipstick 500 /ul (Negative); Nitrite-Dipstick Positive (Negative); Occult Blood-Urine 250 /ul (Negative); Protein-Dipstick 30 mg/dl (Negative); Specific Gravity, Urine 1.015 (1.002-1.030); Urine Bilirubin Dipstick Negative (Negative); Urine Clarity Sl. Cloudy (Clear); Urine Urobilinogen Normal (Normal)
== END ==
LOC: OLS.WHLEAS 10:30
PROVIDERS: PCP Physician Assistant; Visit Provider Internal Medicine
DX: N39.0 Urinary tract infection, site not specified (principal); M97.01XD Periprosthetic fracture around internal prosthetic right hip joint, subsequent encounter; D62 Acute posthemorrhagic anemia; M62.81 Muscle weakness (generalized); Z47.89 Encounter for other orthopedic aftercare
CPT/HCPCS: 81002; 87086; 87088; 87186

== ENCOUNTER → 2023-02-08 | Outpatient (REF) | payer MEDICARE, SELFPAY ==
[2023-02-08 09:04] LABS: Absolute Lymphocyte Count 1.16 X10^3/uL (0.83-4.51); Absolute Neutrophil Count 5.4 X10^3/uL (2.0-7.7); Basophil# 0.09 X10^3/uL; Basophil% 1.1 % (0-1); Eosinophil# 0.64 X10^3/uL; Eosinophils% 7.7 % (0-5); Hematocrit 37.8 % (40-54); Hemoglobin 12.1 g/dL (13.0-16.5); Lymphocyte # 1.16 X10^3/ul (0.83-4.51); Lymphocyte % 13.9 % (19-41); Mean Corpuscular Hgb 31.1 pg (27.0-32.0); Mean Corpuscular Volume 97.2 fL (80-94); Mean Platelet Vol. 10.1 fl (6.2-12.0); Monocyte# 0.97 X10^3/uL; Monocyte% 11.6 % (0-10); NRBC Flagged by Analyzer 0 % (0-5); Neutrophil # 5.43 X10^3/uL (2.7-7.7); Neutrophil % 65.1 % (47-70); Platelet Count 251 K/mm3 (150-450); RBC Distribution Width CV 14.7 % (11.6-14.6); RBC Distribution Width SD 53.2 fl (35.1-43.9); Red Blood Count 3.89 M/mm3 (4.6-6.2); White Blood Count 8.3 K/mm3 (4.4-11.0)
[2023-02-08 09:27] LABS: Anion Gap 10 (5-15); BUN 19 mg/dL (7-18); BUN/Creat Ratio 20.9 RATIO (10-20); Calcium,Total 9.2 mg/dL (8.5-10.1); Chloride 103 mmol/L (98-107); Creatinine, Serum 0.91 mg/dL (0.70-1.30); EST Glomerular Filtration Rate 87 mL/min (>60); Est Glom Filt Rate - Afr Amer 105 mL/min (>60); Glucose 97 mg/dL (74-106); Potassium 4.6 mmol/L (3.5-5.1); Sodium Level 137 mmol/L (136-145)
== END ==
LOC: OLS.WHLEAS 05:00
PROVIDERS: PCP Physician Assistant; Visit Provider Internal Medicine
DX: R53.83 Other fatigue (principal); M97.01XD Periprosthetic fracture around internal prosthetic right hip joint, subsequent encounter; D62 Acute posthemorrhagic anemia; M62.81 Muscle weakness (generalized); Z47.89 Encounter for other orthopedic aftercare
CPT/HCPCS: 36415; 80048; 85025

== ENCOUNTER → 2023-02-15 | Outpatient (REF) | payer MEDICARE, SELFPAY ==
[2023-02-15 10:45] LABS: Absolute Lymphocyte Count 1.14 X10^3/uL (0.83-4.51); Absolute Neutrophil Count 9.5 X10^3/uL (2.0-7.7); Basophil# 0.08 X10^3/uL; Basophil% 0.7 % (0-1); Eosinophil# 0.38 X10^3/uL; Eosinophils% 3.2 % (0-5); Hematocrit 37.7 % (40-54); Lymphocyte # 1.14 X10^3/ul (0.83-4.51); Lymphocyte % 9.5 % (19-41); Mean Corp Hgb Conc 31.8 g/dL (32-36); Mean Corpuscular Hgb 30.3 pg (27.0-32.0); Mean Corpuscular Volume 95.2 fL (80-94); Monocyte# 0.93 X10^3/uL; Monocyte% 7.7 % (0-10); NRBC Flagged by Analyzer 0 % (0-5); Neutrophil # 9.46 X10^3/uL (2.7-7.7); Neutrophil % 78.5 % (47-70); Platelet Count 291 K/mm3 (150-450); RBC Distribution Width CV 14.2 % (11.6-14.6); RBC Distribution Width SD 50.1 fl (35.1-43.9); Red Blood Count 3.96 M/mm3 (4.6-6.2)
[2023-02-15 11:03] LABS: Anion Gap 4 (5-15); BUN 17 mg/dL (7-18); Chloride 101 mmol/L (98-107); EST Glomerular Filtration Rate 88 mL/min (>60); Est Glom Filt Rate - Afr Amer 107 mL/min (>60); Glucose 98 mg/dL (74-106); Potassium 4.6 mmol/L (3.5-5.1); Sodium Level 132 mmol/L (136-145)
== END ==
LOC: OLS.WHLEAS 04:00
PROVIDERS: PCP Physician Assistant; Referring Provider Internal Medicine; Visit Provider Internal Medicine
DX: R53.83 Other fatigue (principal); M97.01XD Periprosthetic fracture around internal prosthetic right hip joint, subsequent encounter; D62 Acute posthemorrhagic anemia; M62.81 Muscle weakness (generalized); Z47.89 Encounter for other orthopedic aftercare
CPT/HCPCS: 36415; 80048; 85025

== ENCOUNTER → 2023-02-22 | Outpatient (REF) | payer MEDICARE, SELFPAY ==
[2023-02-22 08:27] LABS: Absolute Lymphocyte Count 1.33 X10^3/uL (0.83-4.51); Absolute Neutrophil Count 4.4 X10^3/uL (2.0-7.7); Basophil# 0.09 X10^3/uL; Basophil% 1.3 % (0-1); Eosinophils% 5.7 % (0-5); Hematocrit 39.2 % (40-54); Hemoglobin 12.5 g/dL (13.0-16.5); Lymphocyte # 1.33 X10^3/ul (0.83-4.51); Lymphocyte % 18.9 % (19-41); Mean Corp Hgb Conc 31.9 g/dL (32-36); Mean Platelet Vol. 9.3 fl (6.2-12.0); Monocyte# 0.76 X10^3/uL; Monocyte% 10.8 % (0-10); NRBC Flagged by Analyzer 0 % (0-5); Neutrophil # 4.42 X10^3/uL (2.7-7.7); Neutrophil % 62.7 % (47-70); Platelet Count 357 K/mm3 (150-450); RBC Distribution Width CV 13.7 % (11.6-14.6); RBC Distribution Width SD 47.8 fl (35.1-43.9); Red Blood Count 4.17 M/mm3 (4.6-6.2)
[2023-02-22 08:40] LABS: Anion Gap 5 (5-15); BUN 20 mg/dL (7-18); BUN/Creat Ratio 18.9 RATIO (10-20); Calcium,Total 9.3 mg/dL (8.5-10.1); Chloride 102 mmol/L (98-107); Creatinine, Serum 1.06 mg/dL (0.70-1.30); EST Glomerular Filtration Rate 73 mL/min (>60); Est Glom Filt Rate - Afr Amer 88 mL/min (>60); Glucose 120 mg/dL (74-106); Potassium 4.4 mmol/L (3.5-5.1); Sodium Level 134 mmol/L (136-145)
== END ==
LOC: OLS.WHLEAS 05:00
PROVIDERS: PCP Physician Assistant; Visit Provider Internal Medicine
DX: R53.83 Other fatigue (principal); M97.01XD Periprosthetic fracture around internal prosthetic right hip joint, subsequent encounter; D62 Acute posthemorrhagic anemia; M62.81 Muscle weakness (generalized); Z47.89 Encounter for other orthopedic aftercare
CPT/HCPCS: 36415; 80048; 85025

== ENCOUNTER → 2023-03-01 | Outpatient (REF) | payer MEDICARE, SELFPAY ==
[2023-03-01 07:42] LABS: Absolute Lymphocyte Count 1.01 X10^3/uL (0.83-4.51); Absolute Neutrophil Count 2.7 X10^3/uL (2.0-7.7); Basophil# 0.08 X10^3/uL; Basophil% 1.6 % (0-1); Eosinophil# 0.35 X10^3/uL; Eosinophils% 7.1 % (0-5); Hematocrit 37.6 % (40-54); Hemoglobin 11.8 g/dL (13.0-16.5); Lymphocyte # 1.01 X10^3/ul (0.83-4.51); Lymphocyte % 20.4 % (19-41); Mean Corp Hgb Conc 31.4 g/dL (32-36); Mean Corpuscular Hgb 29.4 pg (27.0-32.0); Mean Corpuscular Volume 93.5 fL (80-94); Mean Platelet Vol. 9.2 fl (6.2-12.0); Monocyte# 0.79 X10^3/uL; Monocyte% 15.9 % (0-10); NRBC Flagged by Analyzer 0 % (0-5); Neutrophil # 2.69 X10^3/uL (2.7-7.7); Neutrophil % 54.2 % (47-70); Platelet Count 302 K/mm3 (150-450); RBC Distribution Width CV 13.8 % (11.6-14.6); RBC Distribution Width SD 46.9 fl (35.1-43.9); Red Blood Count 4.02 M/mm3 (4.6-6.2)
[2023-03-01 07:48] LABS: Anion Gap 3 (5-15); BUN 15 mg/dL (7-18); Calcium,Total 9.1 mg/dL (8.5-10.1); Chloride 106 mmol/L (98-107); Creatinine, Serum 0.88 mg/dL (0.70-1.30); EST Glomerular Filtration Rate 90 mL/min (>60); Est Glom Filt Rate - Afr Amer 109 mL/min (>60); Glucose 94 mg/dL (74-106); Potassium 4.1 mmol/L (3.5-5.1); Sodium Level 136 mmol/L (136-145)
== END ==
LOC: OLS.WHLEAS 04:00
PROVIDERS: PCP Physician Assistant; Referring Provider Internal Medicine; Visit Provider Internal Medicine
DX: R53.83 Other fatigue (principal); M97.01XD Periprosthetic fracture around internal prosthetic right hip joint, subsequent encounter; D62 Acute posthemorrhagic anemia; M62.81 Muscle weakness (generalized); Z47.89 Encounter for other orthopedic aftercare
CPT/HCPCS: 36415; 80048; 85025

== ENCOUNTER → 2023-03-08 | Outpatient (REF) | payer MEDICARE, SELFPAY ==
[2023-03-08 07:57] LABS: Absolute Lymphocyte Count 0.95 X10^3/uL (0.83-4.51); Absolute Neutrophil Count 6.4 X10^3/uL (2.0-7.7); Basophil# 0.06 X10^3/uL; Basophil% 0.7 % (0-1); Eosinophil# 0.37 X10^3/uL; Eosinophils% 4.2 % (0-5); Hematocrit 37.4 % (40-54); Hemoglobin 11.9 g/dL (13.0-16.5); Lymphocyte # 0.95 X10^3/ul (0.83-4.51); Lymphocyte % 10.9 % (19-41); Mean Corp Hgb Conc 31.8 g/dL (32-36); Mean Corpuscular Hgb 29.5 pg (27.0-32.0); Mean Corpuscular Volume 92.6 fL (80-94); Mean Platelet Vol. 9.7 fl (6.2-12.0); Monocyte# 0.97 X10^3/uL; Monocyte% 11.1 % (0-10); NRBC Flagged by Analyzer 0 % (0-5); Neutrophil # 6.35 X10^3/uL (2.7-7.7); Neutrophil % 72.6 % (47-70); Platelet Count 273 K/mm3 (150-450); RBC Distribution Width CV 14.3 % (11.6-14.6); RBC Distribution Width SD 48.8 fl (35.1-43.9); Red Blood Count 4.04 M/mm3 (4.6-6.2); White Blood Count 8.7 K/mm3 (4.4-11.0)
[2023-03-08 08:14] LABS: Anion Gap 6 (5-15); BUN 17 mg/dL (7-18); BUN/Creat Ratio 20.7 RATIO (10-20); Calcium,Total 9.2 mg/dL (8.5-10.1); Chloride 105 mmol/L (98-107); Creatinine, Serum 0.82 mg/dL (0.70-1.30); EST Glomerular Filtration Rate 98 mL/min (>60); Est Glom Filt Rate - Afr Amer 118 mL/min (>60); Glucose 89 mg/dL (74-106); Potassium 4.2 mmol/L (3.5-5.1); Sodium Level 135 mmol/L (136-145)
== END ==
LOC: OLS.WHLEAS 05:00
PROVIDERS: PCP Physician Assistant; Visit Provider Internal Medicine
DX: R53.83 Other fatigue (principal); M97.01XD Periprosthetic fracture around internal prosthetic right hip joint, subsequent encounter; D62 Acute posthemorrhagic anemia; M62.81 Muscle weakness (generalized); Z47.89 Encounter for other orthopedic aftercare
CPT/HCPCS: 36415; 80048; 85025

== ENCOUNTER 2023-03-09 13:52 | Emergency (ER) | payer MEDICARE, SELFPAY ==
[2023-03-09] VITALS (9 sets, daily range): BP systolic 104–176; BP diastolic 61–97; PULSE 77–93; RESP 17–24; TEMP 36.9–37.4; O2SAT 88–99; BMI 31.7
[2023-03-09] MEDS: Ondansetron 4 MG/2 ML Vial IV (14:40)
[2023-03-09] MEDS: Morphine 4 MG/ML Syringe IV ×2 (14:40→16:40)
[2023-03-09] MEDS: 0.9% Normal Saline 1,000 ML 100 ML IV (14:40)
--- NOTE | 2023-03-09 14:45 | RAD_ITS ---
EXAM: XR RIGHT HIP WITH PELVIS WHEN PERFORMED, 2 OR 3 VIEWS CLINICAL INDICATION: Injury/Pain TECHNIQUE: Two or three views of the right hip with pelvis when performed. This report was created using [employer] report generation technology. COMPARISON: XR Hips Pelvis Unilateral or Bi dated 01/07/2023 FINDINGS: BONES/JOINTS: Interval replacement of the femoral shaft portion of the right hip prosthesis. Prosthetic femoral head is not dislocated superiorly. Fracture of the greater trochanter portion of the femur may represent changes related to recent fracture. SOFT TISSUES: Normal. No soft tissue swelling or gas. RAD/HIP, UNI W/ Pelvis 2-3 Views IMPRESSION: Superior dislocation of the femoral portion of the right hip prosthesis. Subacute fracture of the greater trochanter. Electronically Signed: Singh Vega MD at 15:22 EDT ,
--- NOTE | 2023-03-09 14:51 | EDS_ITS ---
HPI History of Present Illness Chief Complaint: Lower Extremity Injury Informant: patient Narrative Narrative: Patient is a 72-year-old male coming in with right hip pain. Patient had right hip surgery secondary after a right periprosthetic femur fracture secondary to fall. This was in December of this year. Patient was is transferred to [facility]. Apparently he had 2 surgeries for this. He was discharged to [facility], last few help for rehab. Patient denies any fall or injury. He states he was getting out of bed and it just did not feel right in his leg. He was able to get up and go to the bathroom and then will himself to get coffee. He notes he usually uses his feet to wheel himself around and could not really do it. He had an outpatient x-ray which showed a periprosthetic hip dislocation. Patient received 5 mg of oxycodone prior to arrival. He was transferred to the emergency room for further evaluation. Patient denies associated numbness or tingling. He does not recall who his orthopedic surgeon is. [facility] Medical History Anxiety Essential (primary) hypertension Hepatitis A History of fractured rib (08/12/20) Osteoarthritis Right femoral fracture Home Medications amlodipine 10 mg tablet 10 mg PO DAILY blood pressure 10/28/20 [History Last Taken 03/28/22] omega-3 fatty acids 1,000 mg capsule 1,000 mg PO DAILY supplement 10/28/20 [History Last Taken 03/28/22] trazodone 150 mg tablet 150 mg PO QHS sleep 10/30/20 [History Last Taken 03/28/22] docusate sodium 100 mg capsule 100 mg PO BID stool softener 03/29/22 [History Last Taken 03/28/22] gabapentin 300 mg capsule 600 mg PO TID pain management 03/29/22 [History Last Taken 03/28/22] lisinopril 10 mg tablet 10 mg PO DAILY blood pressure 03/29/22 [History Last Taken 03/28/22] methocarbamol 750 mg tablet 750 mg PO Q6H PRN PRN Muscle Spasm 03/29/22 [History Last Taken Unknown] oxycodone-acetaminophen 5 mg-325 mg tablet 1 tab PO Q6H PRN PRN Pain 03/29/22 [History Last Taken Unknown] oxycodone-acetaminophen 5 mg-325 mg tablet 1 tab PO Q6H PRN PRN pain 5 days #20 TABLETS 10/27/22 [Rx Last Taken Unknown] Allergy/AdvReac Type Severity Reaction Status Date / Time diltiazem [From Cardizem] AdvReac unknown Verified 03/09/23 13:53 losartan [From Hyzaar] AdvReac unknown Verified 03/09/23 13:53 metoprolol [From Lopressor] AdvReac unknown Verified 03/09/23 13:53 valsartan [From Diovan] AdvReac unknown Verified 03/09/23 13:53 Family History Mother Heart disease Cancer breast Sister Heart disease Surgical History History of elbow surgery History of hip replacement History of lumbar laminectomy for spinal cord decompression History of shoulder surgery Social History Smoking Status: Former smoker quit date: 11/22/92 pack-years: 46 alcohol intake: former year quit: 1991 ROS ROS ED Constitutional Constitutional ED: Denies chills or fever(s) Gastrointestinal Gastrointestinal: Denies nausea or vomiting Musculoskeletal Musculoskeletal: Reports other Details: right hip pain Integumentary Denies Abrasions or rash Neurologic Neurologic: Denies paresthesias or weakness Psychiatric Psychiatric: Denies anxiety Hematologic/Lymphatic Hematologic/Lymphatic: Denies easy bleeding or easy bruising EXAM Physical Exam Const Vital Signs: 03/09/23 13:53 03/09/23 15:15 03/09/23 15:18 Temperature 98.5 F Temperature Source Temporal Pulse Rate 88 82 Pulse Rate [1 (Initial Baseline)] 77 Pulse Rate [2] 80 Pulse Rate [6] 81 Pulse Rate [7] 78 Respiratory Rate 18 17 Respiratory Rate [1 (Initial Baseline)] 17 Respiratory Rate [2] 24 H Respiratory Rate [6] 17 Respiratory Rate [7] 24 H Blood Pressure 132/82 H 130/76 H Blood Pressure [1 (Initial Baseline)] 131/73 H Blood Pressure [2] 131/73 H Blood Pressure [4] 109/61 Blood Pressure [6] 109/61 Blood Pressure [7] 109/77 Blood Pressure Mean 98 Pulse Ox 96 98 Oxygen Delivery Method Room Air Nasal Cannula Oxygen Delivery Method [1 (Initial Baseline)] Nasal Cannula Oxygen Delivery Method [2] Nasal Cannula Oxygen Delivery Method [3] Nasal Cannula Oxygen Delivery Method [4] Nasal Cannula Oxygen Delivery Method [5] Nasal Cannula Oxygen Delivery Method [6] Ambu-Bag Oxygen Delivery Method [7] Nasal Cannula Oxygen Flow Rate (L/min) 2 Oxygen Flow Rate (L/min) [1 (Initial Baseline)] 2 Oxygen Flow Rate (L/min) [2] 4 Oxygen Flow Rate (L/min) [3] 4 Oxygen Flow Rate (L/min) [5] 4 Oxygen Flow Rate (L/min) [7] 4 03/09/23 15:34 03/09/23 15:39 03/09/23 15:44 Temperature Temperature Source Pulse Rate Pulse Rate [1 (Initial Baseline)] Pulse Rate [2] Pulse Rate [6] Pulse Rate [7] Respiratory Rate Respiratory Rate [1 (Initial Baseline)] Respiratory Rate [2] Respiratory Rate [6] Respiratory Rate [7] Blood Pressure Blood Pressure [1 (Initial Baseline)] Blood Pressure [2] Blood Pressure [4] Blood Pressure [6] Blood Pressure [7] Blood Pressure Mean Pulse Ox Oxygen Delivery Method Nasal Cannula Room Air Room Air Oxygen Delivery Method [1 (Initial Baseline)] Oxygen Delivery Method [2] Oxygen Delivery Method [3] Oxygen Delivery Method [4] Oxygen Delivery Method [5] Oxygen Delivery Method [6] Oxygen Delivery Method [7] Oxygen Flow Rate (L/min) 3 Oxygen Flow Rate (L/min) [1 (Initial Baseline)] Oxygen Flow Rate (L/min) [2] Oxygen Flow Rate (L/min) [3] Oxygen Flow Rate (L/min) [5] Oxygen Flow Rate (L/min) [7] 03/09/23 16:36 03/09/23 20:00 03/09/23 20:31 Temperature 99.3 F H Temperature Source Oral Pulse Rate 87 93 93 Pulse Rate [1 (Initial Baseline)] Pulse Rate [2] Pulse Rate [6] Pulse Rate [7] Respiratory Rate 18 18 18 Respiratory Rate [1 (Initial Baseline)] Respiratory Rate [2] Respiratory Rate [6] Respiratory Rate [7] Blood Pressure 176/97 H 136/73 H 136/73 H Blood Pressure [1 (Initial Baseline)] Blood Pressure [2] Blood Pressure [4] Blood Pressure [6] Blood Pressure [7] Blood Pressure Mean 123 94 94 Pulse Ox 95 Oxygen Delivery Method Room Air Oxygen Delivery Method [1 (Initial Baseline)] Oxygen Delivery Method [2] Oxygen Delivery Method [3] Oxygen Delivery Method [4] Oxygen Delivery Method [5] Oxygen Delivery Method [6] Oxygen Delivery Method [7] Oxygen Flow Rate (L/min) Oxygen Flow Rate (L/min) [1 (Initial Baseline)] Oxygen Flow Rate (L/min) [2] Oxygen Flow Rate (L/min) [3] Oxygen Flow Rate (L/min) [5] Oxygen Flow Rate (L/min) [7] Positive well nourished and well developed Constitutional Narrative: Patient appears nontoxic. He is laying in the bed flat. General Appearance ED: well developed HEENT Reports moist mucous membranes HEENT Narrative: No obvious cracked or missing teeth. No dentures present. Normal oropharynx. normocephalic and atraumatic Eyes PERRL Chest Wall inspection of chest normal and palpation of chest normal Cardio regular rate and regular rhythm Extremity Extremity Narrative: Decreased range of motion of the right hip. Right hip is shortened and externa lly rotated. Neuro oriented x3, moves all extremities and no sensory deficits noted Sensorium / Orientation: alert Motor Exam: Negative for general weakness Psych mental status grossly normal MDM MDM MDM Narrative Medical decision making narrative: Patient is evaluated for atraumatic right hip pain. Had outpatient x-ray that showed periprosthetic hip dislocation. He is neurovascular intact distally. X- ray here interpreted myself as well as radiology does in fact show right periprosthetic hip dislocation. There is also subacute fracture of the greater trochanter. Procedural sedation with closed reduction performed. See procedure note. Patient tolerated this well. He did have some transient apnea which she is back through and does not desaturate. Patient has mild pain upon wakening but his range of motion is improved. He is placed in a knee immobilizer. He is neurovascular intact afterwards. Postreduction x-ray shows successful reduction. Patient be discharged back to nursing facility. Is able to ambulate. Because of the subacute greater trochanteric fracture I did discuss it with Dr. Olivier, our orthopedics on-call. He feels that patient should be fine to follow-up outpatient as long as he can ambulate and has good pain control. Especially given this is nontraumatic process to begin with. Patient ambulates well. He is given 4 mg of morphine postreduction. Is counseled to use a wedge when sleeping as well. Encouraged to call his orthopedist at [facility] tomorrow to arrange outpatient follow-up. Radiography Diagnostic Testing: Clinical Impression(s) from Imaging Studies Hip/Pelvis X-Ray 03/09/23 14:45 IMPRESSION: Superior dislocation of the femoral portion of the right hip prosthesis. Subacute fracture of the greater trochanter. Electronically Signed: Singh Vega MD at 15:22 EDT , Hip/Pelvis X-Ray 03/09/23 15:50 IMPRESSION: Satisfactory reduction of the right hip prosthesis dislocation. Electronically Signed: Singh Vega MD at 16:14 EDT , Procedures Procedural Sedation 1 (Initial Baseline): Consent Signed: Yes Any Problems With Anesthesia: No You/Your family experience fever (hyperthermia) w/anesthesia: Unknown Sedation medication: Propofol Dose: 110 Route: IV Maliampati Score: Class I ASA Classification: II Comment:: Total sedation time 9 minutes Other Procedures Procedure(s): Closed right hip reduction Procedural sedation performed. Once adequate sedation achieved traction and flexion of the hip performed. Counterpressure applied by professional nursing assistant. Patient has audible clunk with return of range of motion of the hip. Postreduction x- ray shows successful reduction. Patient neurovascular intact afterwards. Discharge Plan Triage Chief Complaint: Lower Extremity Injury ED Provider: Toshia Sanchez Dx/Rx/DC Orders Clinical Impression: Hip dislocation, right, Status post total hip replacement, right Instructions: ED Hip Replace Dislocation Reduc Prescriptions: No Action trazodone 150 mg tablet 150 mg PO QHS amlodipine 10 mg tablet 10 mg PO DAILY omega-3 fatty acids 1,000 mg capsule 1,000 mg PO DAILY oxycodone-acetaminophen 5-325 mg tablet 1 tab PO Q6H PRN PRN (Reason: Pain) methocarbamol 750 mg Tablet 750 mg PO Q6H PRN PRN (Reason: Muscle Spasm) docusate sodium 100 mg Capsule 100 mg PO BID gabapentin 300 mg capsule 600 mg PO TID lisinopril 10 mg tablet 10 mg PO DAILY oxycodone-acetaminophen [oxycodone-acetaminophen] 5-325 mg tablet 1 tab PO Q6H PRN PRN (Reason: pain) 5 Days Qty: 20 0RF Primary Care Provider: Marbella Zaidi Referrals: Marbella Zaidi PA [Primary Care Provider] - Activity Restrictions/Additional Instructions: Please follow-up with your orthopedist at [facility]. Call tomorrow to make an appointment to be seen in the next week or 2. Let them know that you had a periprosthetic hip dislocation. This was reduced successfully in the ER. You have a subacute greater trochanteric fracture on your x-ray. Use a wedge pillow between your legs when sleeping and wear knee immobilizer until cleared by orthopedics. Disposition Disposition: Penitentiary Facility
[2023-03-09] MEDS: Propofol 200 MG/20 ML Vial IV BOLUS (15:41)
--- NOTE | 2023-03-09 15:50 | RAD_ITS ---
EXAM: XR RIGHT HIP WITH PELVIS WHEN PERFORMED, 1 VIEW CLINICAL INDICATION: post reduction TECHNIQUE: Frontal view of the right hip with pelvis when performed. This report was created using [employer] report generation technology. COMPARISON: XR Hips Pelvis Unilateral or Bi dated 03/09/2023 FINDINGS: BONES/JOINTS: Fracture of the base of the greater trochanter again seen. Interval relocation of the femoral portion of the right hip prosthesis. SOFT TISSUES: Normal. No soft tissue swelling or gas. RAD/Hip 1 view with Pelvis IMPRESSION: Satisfactory reduction of the right hip prosthesis dislocation. Electronically Signed: Singh Vega MD at 16:14 EDT ,
--- NOTE | 2023-03-09 16:13 | CHAPLAIN ---
Type of Pastoral Visit _x__ Initial Visit ___ Follow-up Visit ___ On-call Visit ___ General Patient Visit ___ Spiritual Assessment ___ Family Conference ___ Bereavement ___ Rapid Response ___ Code Blue ___ Other (describe below) Pastoral Care Referral From ___ Patient _x__ Family ___ Nurse ___ Physician ___ Management Engineer ___ Comber Setter ___ Other (describe below) Sacrament/Intervention _x__ Active listening ___ Anointing ___ Congregational ___ Bereavement ___ Communion ___ Ewelina exploration ___ ___ Life review _x__ Prayer ___ Reconciliation ___ Sacrament of Sick ___ Supportive presence ___ Wedding ___ Other (describe below) Pastoral Comments offer of support and prayer given to this patient as he will soon have procedure done
--- NOTE | 2023-03-09 17:42 | NURSING ---
CALLED [facility], ETA IS 90 MIN TO 2 HRS
== END 2023-03-09 20:33 | disposition skilled nursing facility (03) ==
PROVIDERS: Emergency Provider Emergency Medicine; PCP Physician Assistant; Visit Provider Emergency Medicine
DX: T84.020A Dislocation of internal right hip prosthesis, initial encounter (principal); I10 Essential (primary) hypertension; Z87.891 Personal history of nicotine dependence; Z96.641 Presence of right artificial hip joint; B15.9 Hepatitis A without hepatic coma
CPT/HCPCS: 27257; 73501; 73502; 96361; 96374; 96375; 96376; 99152; 99285; J7030; A4216; J2405

== ENCOUNTER 2023-03-11 14:22 | Emergency (ER) | payer MEDICARE, SELFPAY ==
[2023-03-11 14:22] VITALS: BP 126/101; PULSE 83; RESP 24; TEMP 36.9; O2SAT 92; BMI 30.9
--- NOTE | 2023-03-11 14:41 | ED.VIS.LOWEX ---
HPI History of Present Illness Chief Complaint: Lower Extremity Injury Informant: patient Narrative Narrative: Patient presents with a right hip dislocation. Patient had a hip replacement about 8 years ago. He then had a periprosthetic fracture. This was replaced up at [facility] about 8 weeks ago. Patient does not recall the physician's name. He states they did the surgery and then 3 days later they went back and revised it. He is not sure why. He does not know if he dislocated again or the reason for this. He has been in rehab since. He is still in a rehab facility. He was seen here just couple days ago for dislocation. It evidently went back in quite easily. They contacted local orthopedics who recommended follow-up with his physician. Patient has the knee immobilizer on. He was back at his [facility]. He was doing therapy today. He just went to lift up the right leg slightly and it came out. It sounds like there are prehospital x-rays that show dislocation but I do not have access to those. He states he has no other complaints than this. Patient's last meal was about 18 hours ago. He has had no complications with anesthesia. He has no difficulties with diprivan just the other day. [facility] Medical History Anxiety Essential (primary) hypertension Hepatitis A History of fractured rib (08/12/20) Osteoarthritis Right femoral fracture Home Medications amlodipine 10 mg tablet 10 mg PO DAILY blood pressure 10/28/20 [History Last Taken 03/28/22] trazodone 150 mg tablet 150 mg PO QHS sleep 10/30/20 [History Last Taken 03/28/22] gabapentin 300 mg capsule 600 mg PO TID pain management 03/29/22 [History Last Taken 03/28/22] lisinopril 10 mg tablet 20 mg PO DAILY blood pressure 03/29/22 [History Last Taken 03/28/22] citalopram 10 mg tablet 10 mg PO DAILY 03/11/23 [History Last Taken Unknown] melatonin 5 mg capsule 5 mg PO QHS 03/11/23 [History Last Taken Unknown] meloxicam 15 mg tablet 15 mg PO DAILY 03/11/23 [History Last Taken Unknown] nitrofurantoin monohydrate/macrocrystals 100 mg capsule 1 cap PO BID 03/11/23 [History Last Taken Unknown] oxycodone 5 mg tablet 5 mg PO Q6H PRN PRN Pain 03/11/23 [History Last Taken Unknown] tamsulosin 0.4 mg capsule 0.4 mg PO QHS 03/11/23 [History Last Taken Unknown] Allergy/AdvReac Type Severity Reaction Status Date / Time diltiazem [From Cardizem] AdvReac unknown Verified 03/11/23 14:26 losartan [From Hyzaar] AdvReac unknown Verified 03/11/23 14:26 metoprolol [From Lopressor] AdvReac unknown Verified 03/11/23 14:26 valsartan [From Diovan] AdvReac unknown Verified 03/11/23 14:26 Family History Mother Heart disease Cancer breast Sister Heart disease Surgical History History of elbow surgery History of hip replacement History of lumbar laminectomy for spinal cord decompression History of shoulder surgery Social History Smoking Status: Former smoker quit date: 11/22/92 pack-years: 46 alcohol intake: former year quit: 1991 ROS ROS ED Constitutional Constitutional ED: Denies fever(s) ENT ENT ED: Denies rhinorrhea Cardiovascular Cardiovascular: Denies chest pain, palpitations or racing heartbeat Respiratory/Chest Respiratory/Chest: Denies cough or dyspnea Gastrointestinal Gastrointestinal: Denies nausea or vomiting Musculoskeletal Musculoskeletal: Reports arthralgias; Denies back pain or neck pain Integumentary Denies rash Neurologic Neurologic: Denies paresthesias or weakness Psychiatric Psychiatric: Reports anxiety Hematologic/Lymphatic Hematologic/Lymphatic: Denies easy bleeding or easy bruising Allergic/Immunologic Allergic/Immunologic ED: Denies urticaria EXAM Physical Exam Narrative Exam Narrative: Patient is awake and alert lying in bed. He is obviously very frustrated with the events. Nontoxic. HEENT shows no trauma. He is got a Mallampati of 1. Neck supple Heart is regular. I hear no murmur. His rate is about 75 on the monitor. Peripheral pulses are normal. His lungs are clear. He is 94% on room air on the monitor showing no hypoxia. He is not having any dyspnea. Abdomen is soft and nontender Extremity: Patient has some pain around his right hip. No sign of erythema or warmth. Incision looks quite well-healed. He does have his knee immobilizer on as well as a wedge brace currently. The leg does look to be a bit shortened compared to the left. Neuro: Sensation is intact distally. Patient is awake alert and appropriate. Const Vital Signs: 03/11/23 14:22 03/11/23 15:29 03/11/23 15:29 Temperature 98.5 F 98 F Temperature Source Oral Pulse Rate 83 81 Pulse Rate [1 (Initial Baseline)] 74 Pulse Rate [2] 73 Pulse Rate [3] 74 Respiratory Rate 24 H 27 H Respiratory Rate [1 (Initial Baseline)] 18 Respiratory Rate [2] 12 Respiratory Rate [3] 17 Blood Pressure 126/101 H 117/72 Blood Pressure [1 (Initial Baseline)] 116/67 Blood Pressure [2] 113/65 Blood Pressure [3] 115/63 Blood Pressure Mean 109 Pulse Ox 92 97 Oxygen Delivery Method Room Air Nasal Cannula Oxygen Delivery Method [1 (Initial Baseline)] Non-Rebreather Oxygen Delivery Method [2] Non-Rebreather Oxygen Delivery Method [3] Ambu-Bag Oxygen Flow Rate (L/min) 2 Oxygen Flow Rate (L/min) [1 (Initial Baseline)] 15 Oxygen Flow Rate (L/min) [2] 15 Oxygen Flow Rate (L/min) [3] 15 03/11/23 15:45 03/11/23 15:50 03/11/23 15:55 Temperature Temperature Source Pulse Rate Pulse Rate [1 (Initial Baseline)] Pulse Rate [2] Pulse Rate [3] Respiratory Rate Respiratory Rate [1 (Initial Baseline)] Respiratory Rate [2] Respiratory Rate [3] Blood Pressure Blood Pressure [1 (Initial Baseline)] Blood Pressure [2] Blood Pressure [3] Blood Pressure Mean Pulse Ox Oxygen Delivery Method Non-Rebreather Nasal Cannula Nasal Cannula Oxygen Delivery Method [1 (Initial Baseline)] Oxygen Delivery Method [2] Oxygen Delivery Method [3] Oxygen Flow Rate (L/min) 15 6 2 Oxygen Flow Rate (L/min) [1 (Initial Baseline)] Oxygen Flow Rate (L/min) [2] Oxygen Flow Rate (L/min) [3] MDM MDM MDM Narrative Medical decision making narrative: I explained the patient that we want to get an image because I do not have an image that verifies dislocation or its positioning. Before we use procedural sedation we need to verify that this is out. I will give him some pain meds now. Because he got nauseated a little bit the other day we will give him Zofran ahead of time. We discussed risk benefits and options. Last meal was long ago and is Mallampati 1 with no history of complications. My independent interpretation the patient's first hip film shows dislocation of his right hip prosthesis. Final reading is similar. Procedure: Procedural sedation and hip reduction: Discussed risk benefits and options with the patient. We did perform a timeout procedure. Last time he had the procedure he received 120 mg of propofol. This time I gave a total of 100mg. I gave 40 then 40 then 20. We got good sedation. The hip was easy to reduce. But when his femur was more vertical as he is lying on the bed, it would spontaneously dislocate. I then relocated it and brought him out to length in line with the body and it stayed in place. Length was restored. He tolerated this well. Patient did get a few minutes of Ambu as his respirations got shallow. But then he came back quite well. He is awake alert and appropriate. He feels fine. Total time of procedure was 7 minutes from sedation total hip reduction but I stayed in the room about another 10 minutes to make sure he was fully awake and alert and doing well. We put the abduction pillow on and his knee immobilizer on. Repeat two-view film of the right hip interpreted by me shows reduction. I was able to call up to [facility] and discussed the case with his surgeon, Dr. Lonnie Samuel. They will see him in the office this coming week. Radiography Diagnostic Testing: Clinical Impression(s) from Imaging Studies Hip/Pelvis X-Ray 03/11/23 15:05 IMPRESSION: Superior dislocation of the femoral portion of the right hip prosthesis. Electronically Signed: Last Minro MD at 15:29 EDT , Management Discussion w/another healthcare provider: Road Contractor Discharge Plan Triage Chief Complaint: Lower Extremity Injury ED Provider: Listerman,Peter Dx/Rx/DC Orders Clinical Impression: Recurrent dislocation of right hip Instructions: ED Hip Replace Dislocation Reduc Prescriptions: No Action trazodone 150 mg tablet 150 mg PO QHS amlodipine 10 mg tablet 10 mg PO DAILY gabapentin 300 mg capsule 600 mg PO TID lisinopril 10 mg tablet 20 mg PO DAILY citalopram 10 mg Tablet 10 mg PO DAILY meloxicam 15 mg tablet 15 mg PO DAILY tamsulosin 0.4 mg capsule 0.4 mg PO QHS oxycodone 5 mg tablet 5 mg PO Q6H PRN PRN (Reason: Pain) nitrofurantoin monohyd/m-cryst 100 mg capsule 1 cap PO BID melatonin 5 mg Capsule 5 mg PO QHS Primary Care Provider: Marbella Zaidi Referrals: Marbella Zaidi PA [Primary Care Provider] - Activity Restrictions/Additional Instructions: Low up with Dr. Lonnie Samuel orthopedic surgeon at [facility] this coming week. I have contacted him. Please call his office for scheduling of an appointment. [phone] You may have your oxycodone every 6 hours. With the recent dislocations I would expect increased pain and so increasing the schedule of the pain meds is appropriate. Disposition Disposition: Long-Term Facility
[2023-03-11] MEDS: Morphine 4 MG/ML Syringe IV (14:44)
[2023-03-11] MEDS: Ondansetron 4 MG/2 ML Vial IV (14:44)
--- NOTE | 2023-03-11 15:05 | RAD_ITS ---
INDICATION: Hip dislocation EXAMINATION/TECHNIQUE: X-RAY - XR Hip Unilateral with Pelvis when performed; 2-3 Views COMPARISON: 03/09/2023 FINDINGS: PELVIC BONES: No displaced fracture, destructive or sclerotic lesions. Note that overlapping bowel shadows may however obscure fine detail. Sacroiliac joints are unremarkable. No widening of the pubic symphysis. HIPS: Right hip prosthesis again seen with superior dislocation of the femoral portion. Subacute fracture of the greater trochanter again noted, unchanged. Severe degenerative changes of the left hip are stable. SOFT TISSUES: No soft tissue swelling or gas. RAD/HIP, UNI W/ Pelvis 2-3 Views IMPRESSION: Superior dislocation of the femoral portion of the right hip prosthesis. Electronically Signed: Last Minor MD at 15:29 EDT ,
[2023-03-11 15:29] VITALS: BP 113/65; BP 115/63; BP 116/67; BP 117/72; PULSE 73; PULSE 74; PULSE 81; RESP 12; RESP 17; RESP 18; RESP 27; TEMP 36.6; O2SAT 100; O2SAT 97
[2023-03-11 15:45] VITALS: BP 115/63; O2SAT 99
[2023-03-11] MEDS: Propofol 200 MG/20 ML Vial IV BOLUS (15:47)
[2023-03-11 15:50] VITALS: BP 95/61; O2SAT 97
[2023-03-11 15:55] VITALS: BP 96/64; O2SAT 97
--- NOTE | 2023-03-11 15:55 | RAD_ITS ---
INDICATION: Reduction of hip dislocation EXAMINATION/TECHNIQUE: X-RAY - XR Hip Unilateral with Pelvis when performed; 2-3 Views COMPARISON: Right hip series earlier same date FINDINGS: 2 views show anatomic reduction of the right hip prosthesis. Stable appearance of the chronic fracture right greater trochanter. RAD/HIP, UNI W/ Pelvis 2-3 Views IMPRESSION: Status post anatomic reduction right hip replacement. Electronically Signed: Last Minor MD at 16:32 EDT ,
[2023-03-11 17:00] VITALS: BP 108/74; PULSE 73; RESP 14; O2SAT 97
--- NOTE | 2023-03-11 17:14 | ED.RN ---
NURSE TO NURSE REPORT CALLED TO JEAN
== END 2023-03-11 17:44 | disposition skilled nursing facility (03) ==
PROVIDERS: Emergency Provider Emergency Medicine; PCP Physician Assistant; Referring Provider Emergency Medicine; Visit Provider Emergency Medicine
DX: T84.020A Dislocation of internal right hip prosthesis, initial encounter (principal); I10 Essential (primary) hypertension; Z87.891 Personal history of nicotine dependence; M19.90 Unspecified osteoarthritis, unspecified site; B15.9 Hepatitis A without hepatic coma; Z96.641 Presence of right artificial hip joint
CPT/HCPCS: 27256; 73502; 96374; 96375; 99285; J7030; A4216; J2405

== ENCOUNTER → 2023-03-15 | Outpatient (REF) | payer MEDICARE, SELFPAY ==
[2023-03-15 08:48] LABS: Absolute Lymphocyte Count 1.42 X10^3/uL (0.83-4.51); Absolute Neutrophil Count 9.1 X10^3/uL (2.0-7.7); Basophil# 0.05 X10^3/uL; Basophil% 0.4 % (0-1); Eosinophil# 0.68 X10^3/uL; Eosinophils% 5.3 % (0-5); Hematocrit 37.5 % (40-54); Lymphocyte # 1.42 X10^3/ul (0.83-4.51); Lymphocyte % 11.1 % (19-41); Mean Corpuscular Hgb 29.7 pg (27.0-32.0); Mean Corpuscular Volume 92.8 fL (80-94); Mean Platelet Vol. 9.5 fl (6.2-12.0); Monocyte# 1.45 X10^3/uL; Monocyte% 11.3 % (0-10); NRBC Flagged by Analyzer 0 % (0-5); Neutrophil # 9.14 X10^3/uL (2.7-7.7); Neutrophil % 71.4 % (47-70); Platelet Count 317 K/mm3 (150-450); RBC Distribution Width CV 14.9 % (11.6-14.6); RBC Distribution Width SD 51.5 fl (35.1-43.9); Red Blood Count 4.04 M/mm3 (4.6-6.2); White Blood Count 12.8 K/mm3 (4.4-11.0)
[2023-03-15 09:04] LABS: Anion Gap 3 (5-15); BUN 23 mg/dL (7-18); BUN/Creat Ratio 21.9 RATIO (10-20); Calcium,Total 9.3 mg/dL (8.5-10.1); Chloride 104 mmol/L (98-107); Creatinine, Serum 1.05 mg/dL (0.70-1.30); EST Glomerular Filtration Rate 74 mL/min (>60); Est Glom Filt Rate - Afr Amer 89 mL/min (>60); Glucose 123 mg/dL (74-106); Potassium 4.2 mmol/L (3.5-5.1); Sodium Level 134 mmol/L (136-145)
== END ==
LOC: OLS.WHLEAS 05:00
PROVIDERS: PCP Physician Assistant; Visit Provider Internal Medicine
DX: R53.83 Other fatigue (principal); M97.01XD Periprosthetic fracture around internal prosthetic right hip joint, subsequent encounter; D62 Acute posthemorrhagic anemia; M62.81 Muscle weakness (generalized); Z47.89 Encounter for other orthopedic aftercare
CPT/HCPCS: 36415; 80048; 85025

== ENCOUNTER → 2023-03-22 | Outpatient (REF) | payer MEDICARE, SELFPAY ==
[2023-03-22 07:43] LABS: Absolute Lymphocyte Count 0.93 X10^3/uL (0.83-4.51); Absolute Neutrophil Count 11.5 X10^3/uL (2.0-7.7); Basophil# 0.05 X10^3/uL; Basophil% 0.4 % (0-1); Eosinophil# 0.24 X10^3/uL; Eosinophils% 1.7 % (0-5); Hematocrit 36.5 % (40-54); Hemoglobin 11.4 g/dL (13.0-16.5); Lymphocyte # 0.93 X10^3/ul (0.83-4.51); Lymphocyte % 6.6 % (19-41); Mean Corp Hgb Conc 31.2 g/dL (32-36); Mean Corpuscular Hgb 28.8 pg (27.0-32.0); Mean Corpuscular Volume 92.2 fL (80-94); Mean Platelet Vol. 8.9 fl (6.2-12.0); Monocyte# 1.38 X10^3/uL; Monocyte% 9.7 % (0-10); NRBC Flagged by Analyzer 0 % (0-5); Neutrophil # 11.48 X10^3/uL (2.7-7.7); Neutrophil % 80.9 % (47-70); Platelet Count 409 K/mm3 (150-450); RBC Distribution Width CV 15.2 % (11.6-14.6); RBC Distribution Width SD 51.9 fl (35.1-43.9); Red Blood Count 3.96 M/mm3 (4.6-6.2); White Blood Count 14.2 K/mm3 (4.4-11.0)
[2023-03-22 08:01] LABS: Anion Gap 5 (5-15); BUN 22 mg/dL (7-18); BUN/Creat Ratio 21.4 RATIO (10-20); Calcium,Total 8.9 mg/dL (8.5-10.1); Chloride 102 mmol/L (98-107); Creatinine, Serum 1.03 mg/dL (0.70-1.30); EST Glomerular Filtration Rate 75 mL/min (>60); Est Glom Filt Rate - Afr Amer 91 mL/min (>60); Glucose 128 mg/dL (74-106); Potassium 4.4 mmol/L (3.5-5.1); Sodium Level 133 mmol/L (136-145)
== END ==
LOC: OLS.WHLEAS 05:00
PROVIDERS: PCP Physician Assistant; Visit Provider Internal Medicine
DX: R53.83 Other fatigue (principal); M97.01XD Periprosthetic fracture around internal prosthetic right hip joint, subsequent encounter; D62 Acute posthemorrhagic anemia; M62.81 Muscle weakness (generalized); Z47.89 Encounter for other orthopedic aftercare
CPT/HCPCS: 36415; 80048; 85025

== ENCOUNTER 2023-03-23 15:00 | Emergency (ER) | payer MEDICARE, SELFPAY ==
[2023-03-23] VITALS (8 sets, daily range): BP systolic 113–138; BP diastolic 68–98; PULSE 68–80; RESP 14–26; TEMP 36.7; O2SAT 93–99; BMI 30.7
--- NOTE | 2023-03-23 15:04 | EX.ED.DYSGE1 ---
HPI History of Present Illness Chief Complaint: Lower Extremity Injury Narrative Narrative: 72-year-old male here with a chief complaint of hip pain. The patient states he has right hip pain. Concern that he may have dislocated his right hip. States he has multiple dislocated right hip recently. States he had no injury. No falls. States he noted all of a sudden his hip felt like it was out of place. States he has right hip pain is constant severe worse with movement, palpation. Improved with rest Spoke to Ms. Mendez ([place]). Dr. Samuel (Orthopedics) wants the patient transferred to [facility] for further orthopedic care. [facility] Medical History Anxiety Essential (primary) hypertension Hepatitis A History of fractured rib (08/12/20) Osteoarthritis Right femoral fracture Home Medications amlodipine 10 mg tablet 10 mg PO DAILY blood pressure 10/28/20 [History Last Taken 03/28/22] trazodone 150 mg tablet 150 mg PO QHS sleep 10/30/20 [History Last Taken 03/28/22] gabapentin 300 mg capsule 600 mg PO TID pain management 03/29/22 [History Last Taken 03/28/22] lisinopril 10 mg tablet 20 mg PO DAILY blood pressure 03/29/22 [History Last Taken 03/28/22] citalopram 10 mg tablet 10 mg PO DAILY 03/11/23 [History Last Taken Unknown] melatonin 5 mg capsule 5 mg PO QHS 03/11/23 [History Last Taken Unknown] meloxicam 15 mg tablet 15 mg PO DAILY 03/11/23 [History Last Taken Unknown] nitrofurantoin monohydrate/macrocrystals 100 mg capsule 1 cap PO BID 03/11/23 [History Last Taken Unknown] oxycodone 5 mg tablet 5 mg PO Q6H PRN PRN Pain 03/11/23 [History Last Taken Unknown] tamsulosin 0.4 mg capsule 0.4 mg PO QHS 03/11/23 [History Last Taken Unknown] Allergy/AdvReac Type Severity Reaction Status Date / Time diltiazem [From Cardizem] AdvReac unknown Verified 03/11/23 14:26 losartan [From Hyzaar] AdvReac unknown Verified 03/11/23 14:26 metoprolol [From Lopressor] AdvReac unknown Verified 03/11/23 14:26 valsartan [From Diovan] AdvReac unknown Verified 03/11/23 14:26 Family History Mother Heart disease Cancer breast Sister Heart disease Surgical History History of elbow surgery History of hip replacement History of lumbar laminectomy for spinal cord decompression History of shoulder surgery Social History Smoking Status: Former smoker quit date: 11/22/92 pack-years: 46 alcohol intake: former year quit: 1991 ROS ROS ED ROS Narrative Constitutional: Denies fever HEENT: Denies sore throat Neck: Denies neck pain Cardiovascular: Denies chest pain, syncope Respiratory: Denies shortness of breath GI: Denies nausea vomiting or abdominal pain : Denies changes in urinary habits Musculoskeletal: Endorses right hip pain Neurologic: Denies numbness weakness or loss of sensation Skin denies rash EXAM Physical Exam Narrative Exam Narrative: Nursing triage notes reviewed, Vital signs reviewed Constitutional: please see mdm HENT: MMM, atraumatic, normocephalic Eyes: Pupils equal round and reactive to light, Extraocular muscles intact Neck: No stridor, no JVD, full neck ROM, no midline cervical spine tenderness noted Lungs: Clear to auscultation, No wheezing or rales. No increased work of breathing, no conversational dyspnea, no accessory muscle use, no nasal flaring. No respiratory distress noted Heart: Regular rate and rhythm, No murmurs, No rubs and No gallops, 2+ distal pulses (radial, femoral, posterior tibial) in all extremities Abdomen: Soft, there is no tenderness, rigidity, rebound or guarding, no obvious peritoneal signs, no palpable pulsatile abdominal masses, no auscultated abdominal bruit : No CVAT Extremities: No edema, right hip with palpable deformity. Right lower extremity shortened externally rotated compared to left. Compartments are soft. Neuro: My intact sensation L1-S1 dermatomal distributions. Intact 5/5 strength in hip flexion (T12-L3). Knee extension (L2-L4). Ankle dorsiflexion (L4-L5). Ankle plantar flexion (S1). Great toe extension (L5). 2+ patellar and Achilles DTRs. Skin: No rash or lesions noted Const Vital Signs: 03/23/23 15:01 03/23/23 17:11 03/23/23 17:12 Temperature 98.0 F Temperature Source Oral Pulse Rate 72 69 72 Pulse Rate [1 (Initial Baseline)] Pulse Rate [2] Pulse Rate [3] Pulse Rate [4] Respiratory Rate 18 26 H 16 Respiratory Rate [1 (Initial Baseline)] Respiratory Rate [2] Respiratory Rate [3] Respiratory Rate [4] Blood Pressure 128/79 H 138/68 H 138/68 H Blood Pressure [1 (Initial Baseline)] Blood Pressure [2] Blood Pressure [3] Blood Pressure [4] Blood Pressure Mean 95 91 Pulse Ox 94 97 96 Oxygen Delivery Method Room Air Room Air Room Air Oxygen Delivery Method [1 (Initial Baseline)] Oxygen Delivery Method [2] Oxygen Delivery Method [3] Oxygen Delivery Method [4] Oxygen Flow Rate (L/min) Oxygen Flow Rate (L/min) [1 (Initial Baseline)] Oxygen Flow Rate (L/min) [2] Oxygen Flow Rate (L/min) [3] Oxygen Flow Rate (L/min) [4] 03/23/23 17:28 03/23/23 17:48 03/23/23 17:53 Temperature Temperature Source Pulse Rate Pulse Rate [1 (Initial Baseline)] 74 Pulse Rate [2] 68 Pulse Rate [3] 70 Pulse Rate [4] 71 Respiratory Rate Respiratory Rate [1 (Initial Baseline)] 16 Respiratory Rate [2] 14 Respiratory Rate [3] 14 Respiratory Rate [4] 16 Blood Pressure Blood Pressure [1 (Initial Baseline)] 133/98 H Blood Pressure [2] 136/74 H Blood Pressure [3] 123/97 H Blood Pressure [4] 132/72 H Blood Pressure Mean Pulse Ox Oxygen Delivery Method Nasal Cannula Nasal Cannula Oxygen Delivery Method [1 (Initial Baseline)] Nasal Cannula Oxygen Delivery Method [2] Nasal Cannula Oxygen Delivery Method [3] Non-Rebreather Oxygen Delivery Method [4] Non-Rebreather Oxygen Flow Rate (L/min) 3 3 Oxygen Flow Rate (L/min) [1 (Initial Baseline)] 3 Oxygen Flow Rate (L/min) [2] 3 Oxygen Flow Rate (L/min) [3] 15 Oxygen Flow Rate (L/min) [4] 15 05/02/23 17:58 03/23/23 19:32 Temperature Temperature Source Pulse Rate 80 Pulse Rate [1 (Initial Baseline)] Pulse Rate [2] Pulse Rate [3] Pulse Rate [4] Respiratory Rate 18 Respiratory Rate [1 (Initial Baseline)] Respiratory Rate [2] Respiratory Rate [3] Respiratory Rate [4] Blood Pressure 136/74 H Blood Pressure [1 (Initial Baseline)] Blood Pressure [2] Blood Pressure [3] Blood Pressure [4] Blood Pressure Mean Pulse Ox 97 Oxygen Delivery Method Room Air Oxygen Delivery Method [1 (Initial Baseline)] Oxygen Delivery Method [2] Oxygen Delivery Method [3] Oxygen Delivery Method [4] Oxygen Flow Rate (L/min) Oxygen Flow Rate (L/min) [1 (Initial Baseline)] Oxygen Flow Rate (L/min) [2] Oxygen Flow Rate (L/min) [3] Oxygen Flow Rate (L/min) [4] MDM MDM MDM Narrative Medical decision making narrative: Chief Complaint: Hip pain External records reviewed: Recent ED evaluation 03/09/2023 for right hip pain. Patient was found to have a periprosthetic right femur fracture at that time and transferred to [facility] for definitive orthopedic management X-ray of the hip and pelvis from 03/11/2023 showed FINDINGS: PELVIC BONES: No displaced fracture, destructive or sclerotic lesions. Note that overlapping bowel shadows may however obscure fine detail. Sacroiliac joints are unremarkable.? No widening of the pubic symphysis. HIPS: Right hip prosthesis again seen with superior dislocation of the femoral portion. Subacute fracture of the greater trochanter again noted, unchanged.? Severe degenerative changes of the left hip are stable. MDM: Patient was hemodynamically stable, afebrile, nontoxic-appearing. Exam consistent with likely hip pathology given shortened externally rotated right lower extremity. I considered the following differential diagnosis: Hip fracture, dislocation, femur fracture I obtained an x-ray to further elucidate etiology the patient's complaint. Imaging showed a right anterior hip dislocation. There is no associated fracture noted. Labs are unremarkable. I discussed the case with the patient's orthopedic surgeon Dr. Samuel. Dr. Samuel recommend attempting reduction here at [place]. If there is an issue then potentially to transfer to [facility]. Patient was consented, sedated and right hip was reduced. Please see below procedure note. Repeat x-ray showed reduction. Spoke with Dr. Samuel who recommended close outpatient follow-up. Patient was discharged stable condition. The procedure was performed by myself. Intra-Service Time: 15 Indication: Completion of a potentially painful procedure. Pre-sedation Evaluation: ASA class I, Mallampati score of 3 Patient is an appropriate candidate for procedural sedation. The risks of sedation were discussed with the patient and/or legal guardian. A time out was completed. The patient was reevaluated immediately prior to initiation of sedation. IV access established. The patient was sedated with IV propofol and a dose of 100 mg The patient was monitored with continuous pulse oximetry, monitoring manager, and capnography. The patient protected their airway well, with there was transient intraprocedure hypoxia which was relieved by jaw thrusting and nonrebreather mask placement. Patient regained consciousness alert and orient x3 with no obvious side effects or abnormalities noted. I remained at the bedside for the sedation. I provided 15 minutes of intra-service time. Post sedation evaluation: Patient was alert and cooperative, hemodynamically stable with appropriate respiratory status, temperature and pain control without ongoing nausea and vomiting. Factors affecting care: History of recurrent hip dislocation, hip fracture Social determinants of health: None History obtained from others: The patient's friend Shared decision making: I will have a discussion with the patient and or visitors regarding risk/benefits of further testing or admission. They will be made aware of of the risk/benefits inherent in this decision they will be given the opportunity to voice understanding. Consults: Orthopedic surgery History & Record Review Discussion w/independent historian: Friend Lab Data Attestation: I reviewed the patient's lab results. Lab results narrative: CBC with no leukocytosis, anemia, no thrombocytopenia BMP with mild hyponatremia, no anion gap, no significant electrolyte abnormalities, no MUNA Labs: Laboratory Results - last 24 hr 03/23/23 03/23/23 16:00 16:00 WBC 9.1 RBC 3.93 L Hgb 11.4 L Hct 35.2 L MCV 89.6 MCH 29.0 MCHC 32.4 RDW Std Deviation 50.2 H RDW Coeff of Matthew 15.1 H Plt Count 432 MPV 8.5 Immature Gran % (Auto) 0.900 Neut % (Auto) 68.0 Lymph % (Auto) 11.6 L [place] % (Auto) 13.3 H Eos % (Auto) 5.5 H Baso % (Auto) 0.7 Absolute Neuts (auto) 6.2 Absolute Lymphs (auto) 1.06 Nucleated RBC % 0 Sodium 134 L Potassium 4.5 Chloride 102 Carbon Dioxide 25.0 Anion Gap 7 BUN 28 H Creatinine 0.97 Estim Creat Clear Calc 72.24 Est GFR (MDRD) Af Amer 98 Est GFR (MDRD) Non-Af 81 BUN/Creatinine Ratio 28.9 H Glucose 100 Calcium 8.9 Radiography Chest X-Ray - ED: Read by ED Physician Diagnostic Testing: Clinical Impression(s) from Imaging Studies Hip/Pelvis X-Ray 03/23/23 15:50 IMPRESSION: Complete dislocation of right hip arthroplasty. Electronically Signed: Prosper Mckeon MD at 16:15 EDT , Knee X-Ray 03/23/23 16:05 IMPRESSION: No acute abnormality. Electronically Signed: Prosper Mckeon MD at 16:27 EDT , Hip X-Ray 03/23/23 18:05 IMPRESSION: undefined Imaging read by myself Initial x-ray showed right hip dislocation X-ray showed interval reduction Critical Care Time Critical Care Time: No Discharge Plan Triage Chief Complaint: Lower Extremity Injury ED Provider: Francisco Javier Hill Dx/Rx/DC Orders Clinical Impression: Dislocation, hip Instructions: ED Hip Replace Dislocation Reduc Prescriptions: No Action trazodone 150 mg tablet 150 mg PO QHS amlodipine 10 mg tablet 10 mg PO DAILY gabapentin 300 mg capsule 600 mg PO TID lisinopril 10 mg tablet 20 mg PO DAILY citalopram 10 mg Tablet 10 mg PO DAILY meloxicam 15 mg tablet 15 mg PO DAILY tamsulosin 0.4 mg capsule 0.4 mg PO QHS oxycodone 5 mg tablet 5 mg PO Q6H PRN PRN (Reason: Pain) nitrofurantoin monohyd/m-cryst 100 mg capsule 1 cap PO BID melatonin 5 mg Capsule 5 mg PO QHS Primary Care Provider: Marbella Zaidi Referrals: Marbella Zaidi, PA [Primary Care Provider] - Activity Restrictions/Additional Instructions: Thank you for trusting us with your care today! Please take Tylenol (2 pills, 650 mg), ibuprofen (2 pills, 400 mg) every 6 hours as needed for pain and fever control. Please return to the emergency department if your symptoms change or worsen. Please follow with your orthopedic surgeon (Dr. Samuel) for further outpatient evaluation and management. Disposition Disposition: Home, Self Care
[2023-03-23] MEDS: 0.9% Normal Saline 1,000 ML 999 ML IV ×2 (15:36→17:08)
[2023-03-23] MEDS: Morphine 4 MG/ML Syringe IV (15:37)
--- NOTE | 2023-03-23 15:50 | RAD_ITS ---
STUDY: X-RAY - PELVIS AND RIGHT HIP REASON FOR EXAM: Male, 72 years old. hips TECHNIQUE: 3 views of the pelvis and hip. COMPARISON: Numerous prior studies reviewed including next most recent of 03/11/2023. FINDINGS: There is dislocation of the right total hip arthroplasty. Femoral component is lateral and superior to normal position. No associated fractures. Degenerative changes noted of the left hip. RAD/HIP, UNI W/ Pelvis 2-3 Views IMPRESSION: Complete dislocation of right hip arthroplasty. Electronically Signed: Prosper Mckeon MD at 16:15 EDT ,
--- NOTE | 2023-03-23 16:05 | RAD_ITS ---
STUDY: X-RAY - RIGHT KNEE REASON FOR EXAM: Male, 72 years old. hip pain TECHNIQUE: 2 view(s) of the knee. COMPARISON: None. FINDINGS: Intramedullary gill seen, otherwise negative visualized distal femur. Normal visualized proximal tibia and fibula. Normal proximal tibiofibular articulation. There is no demonstrated fracture. Normal medial femorotibial compartment. Normal lateral femorotibial compartment. Normal patellofemoral articulation. There is no demonstrated joint effusion. There are atherosclerotic calcifications. RAD/Knee 1 or 2 Views IMPRESSION: No acute abnormality. Electronically Signed: Prosper Mckeon MD at 16:27 EDT ,
[2023-03-23 16:17] LABS: Absolute Lymphocyte Count 1.06 X10^3/uL (0.83-4.51); Absolute Neutrophil Count 6.2 X10^3/uL (2.0-7.7); Basophil# 0.06 X10^3/uL; Basophil% 0.7 % (0-1); Eosinophils% 5.5 % (0-5); Hematocrit 35.2 % (40-54); Hemoglobin 11.4 g/dL (13.0-16.5); Lymphocyte # 1.06 X10^3/ul (0.83-4.51); Lymphocyte % 11.6 % (19-41); Mean Corp Hgb Conc 32.4 g/dL (32-36); Mean Corpuscular Volume 89.6 fL (80-94); Mean Platelet Vol. 8.5 fl (6.2-12.0); Monocyte# 1.21 X10^3/uL; Monocyte% 13.3 % (0-10); NRBC Flagged by Analyzer 0 % (0-5); Neutrophil # 6.22 X10^3/uL (2.7-7.7); Platelet Count 432 K/mm3 (150-450); RBC Distribution Width CV 15.1 % (11.6-14.6); RBC Distribution Width SD 50.2 fl (35.1-43.9); Red Blood Count 3.93 M/mm3 (4.6-6.2); White Blood Count 9.1 K/mm3 (4.4-11.0)
[2023-03-23 16:31] LABS: Anion Gap 7 (5-15); BUN 28 mg/dL (7-18); BUN/Creat Ratio 28.9 RATIO (10-20); Calcium,Total 8.9 mg/dL (8.5-10.1); Chloride 102 mmol/L (98-107); Creatinine, Serum 0.97 mg/dL (0.70-1.30); EST Glomerular Filtration Rate 81 mL/min (>60); Est Glom Filt Rate - Afr Amer 98 mL/min (>60); Estimated Creatinine Clearance 72.24 ml/min; Glucose 100 mg/dL (74-106); Potassium 4.5 mmol/L (3.5-5.1); Sodium Level 134 mmol/L (136-145)
[2023-03-23] MEDS: Ondansetron 4 MG/2 ML Vial IV (17:08)
[2023-03-23] MEDS: Propofol 200 MG/20 ML Vial IV BOLUS (17:13)
--- NOTE | 2023-03-23 18:05 | RAD_ITS ---
STUDY: X-RAY - PELVIS AND RIGHT HIP REASON FOR EXAM: Male, 72 years old. post reduction TECHNIQUE: 2 views of the pelvis and hip. COMPARISON: Numerous prior studies from earlier today. All. FINDINGS: Since prior studies, there has been reduction of previous dislocation of the right hip arthroplasty. No fractures are seen. Electronically Signed: Prosper Mckeon MD at 18:37 EDT , RAD/Hip Min 2 Views (Portable) IMPRESSION: undefined
[2023-03-23] MEDS: oxyCODONE 5 MG Tablet PO (23:06)
[2023-03-23] MEDS: MELATONIN 3 MG TABLET PO (23:07)
== END 2023-03-24 | disposition home or self-care (01) ==
PROVIDERS: Emergency Provider Emergency Medicine; PCP Physician Assistant; Visit Provider Emergency Medicine
DX: S73.004A Unspecified dislocation of right hip, initial encounter (principal); Z87.891 Personal history of nicotine dependence; I10 Essential (primary) hypertension; F41.9 Anxiety disorder, unspecified; Z79.899 Other long term (current) drug therapy; M19.90 Unspecified osteoarthritis, unspecified site; Z96.649 Presence of unspecified artificial hip joint
CPT/HCPCS: 27266; 73502; 73560; 80048; 85025; 96361; 96374; 96375; 99285; J7030; A4216; J2405

== ENCOUNTER → 2023-03-26 | Outpatient (REF) | payer MEDICARE, SELFPAY ==
[2023-03-27 11:12] LABS: Color, Urine Yellow (Yellow); Glucose, Dipstick Normal (Normal); Ketone-Dipstick Negative (Negative); Leukocyte Esterase-Dipstick 500 /ul (Negative); Nitrite-Dipstick Negative (Negative); Occult Blood-Urine 250 /ul (Negative); Protein-Dipstick 30 mg/dl (Negative); Specific Gravity, Urine 1.015 (1.002-1.030); Urine Bilirubin Dipstick Negative (Negative); Urine Clarity Cloudy (Clear); Urine Urobilinogen Normal (Normal)
== END ==
LOC: OLS.WHLEAS 11:00
PROVIDERS: PCP Physician Assistant; Referring Provider Internal Medicine; Visit Provider Internal Medicine
DX: N39.0 Urinary tract infection, site not specified (principal); M97.01XD Periprosthetic fracture around internal prosthetic right hip joint, subsequent encounter; D62 Acute posthemorrhagic anemia; M62.81 Muscle weakness (generalized); Z47.89 Encounter for other orthopedic aftercare
CPT/HCPCS: 81002

== ENCOUNTER → 2023-03-29 | Outpatient (REF) | payer MEDICARE, SELFPAY ==
[2023-03-29 09:56] LABS: Absolute Lymphocyte Count 1.15 X10^3/uL (0.83-4.51); Absolute Neutrophil Count 6.5 X10^3/uL (2.0-7.7); Basophil# 0.09 X10^3/uL; Eosinophil# 0.49 X10^3/uL; Eosinophils% 5.2 % (0-5); Hematocrit 35.5 % (40-54); Hemoglobin 11.4 g/dL (13.0-16.5); Lymphocyte # 1.15 X10^3/ul (0.83-4.51); Lymphocyte % 12.2 % (19-41); Mean Corp Hgb Conc 32.1 g/dL (32-36); Mean Corpuscular Hgb 28.2 pg (27.0-32.0); Mean Corpuscular Volume 87.9 fL (80-94); Mean Platelet Vol. 8.5 fl (6.2-12.0); Monocyte# 1.08 X10^3/uL; Monocyte% 11.5 % (0-10); NRBC Flagged by Analyzer 0 % (0-5); Neutrophil # 6.49 X10^3/uL (2.7-7.7); Platelet Count 457 K/mm3 (150-450); RBC Distribution Width CV 15.4 % (11.6-14.6); RBC Distribution Width SD 49.2 fl (35.1-43.9); Red Blood Count 4.04 M/mm3 (4.6-6.2); White Blood Count 9.4 K/mm3 (4.4-11.0)
[2023-03-29 10:15] LABS: Anion Gap 8 (5-15); BUN 24 mg/dL (7-18); BUN/Creat Ratio 27.5 RATIO (10-20); Calcium,Total 9.2 mg/dL (8.5-10.1); Chloride 101 mmol/L (98-107); Creatinine, Serum 0.87 mg/dL (0.70-1.30); EST Glomerular Filtration Rate 91 mL/min (>60); Est Glom Filt Rate - Afr Amer 110 mL/min (>60); Glucose 80 mg/dL (74-106); Potassium 4.9 mmol/L (3.5-5.1); Sodium Level 133 mmol/L (136-145)
== END ==
LOC: OLS.WHLEAS 04:00
PROVIDERS: PCP Physician Assistant; Referring Provider Internal Medicine; Visit Provider Internal Medicine
DX: R53.83 Other fatigue (principal); M97.01XD Periprosthetic fracture around internal prosthetic right hip joint, subsequent encounter; D62 Acute posthemorrhagic anemia; M62.81 Muscle weakness (generalized); Z47.89 Encounter for other orthopedic aftercare
CPT/HCPCS: 36415; 80048; 85025

== ENCOUNTER → 2023-04-21 | Outpatient (REF) | payer MEDICARE, SELFPAY ==
[2023-04-21 06:27] LABS: Absolute Lymphocyte Count 0.98 X10^3/uL (0.83-4.51); Absolute Neutrophil Count 3.8 X10^3/uL (2.0-7.7); Basophil# 0.07 X10^3/uL; Basophil% 1.1 % (0-1); Eosinophil# 0.25 X10^3/uL; Eosinophils% 4.1 % (0-5); Hematocrit 31.1 % (40-54); Hemoglobin 9.9 g/dL (13.0-16.5); Lymphocyte # 0.98 X10^3/ul (0.83-4.51); Lymphocyte % 15.9 % (19-41); Mean Corp Hgb Conc 31.8 g/dL (32-36); Mean Corpuscular Hgb 27.3 pg (27.0-32.0); Mean Corpuscular Volume 85.9 fL (80-94); Mean Platelet Vol. 8.5 fl (6.2-12.0); Monocyte# 0.96 X10^3/uL; Monocyte% 15.6 % (0-10); NRBC Flagged by Analyzer 0 % (0-5); Neutrophil # 3.75 X10^3/uL (2.7-7.7); Neutrophil % 60.7 % (47-70); Platelet Count 491 K/mm3 (150-450); RBC Distribution Width CV 16.4 % (11.6-14.6); RBC Distribution Width SD 52.2 fl (35.1-43.9); Red Blood Count 3.62 M/mm3 (4.6-6.2); White Blood Count 6.2 K/mm3 (4.4-11.0)
[2023-04-21 06:54] LABS: ALB/GLOB Ratio 0.5 RATIO (0.9-2.4); AST(SGOT) 14 U/L (15-37); Alanine Aminotransfer ALT/SGPT 15 U/L (16-61); Albumin, Serum 2.3 g/dL (3.2-5.0); Alkaline Phosphatase 75 U/L (45-117); Anion Gap 8 (5-15); BUN 16 mg/dL (7-18); BUN/Creat Ratio 20.3 RATIO (10-20); Calcium,Total 9.1 mg/dL (8.5-10.1); Chloride 101 mmol/L (98-107); Creatinine, Serum 0.79 mg/dL (0.70-1.30); EST Glomerular Filtration Rate 103 mL/min (>60); Est Glom Filt Rate - Afr Amer 124 mL/min (>60); Globulin 4.9 g/dL (2.2-4.2); Glucose 93 mg/dL (74-106); Potassium 4.2 mmol/L (3.5-5.1); Protein, Total 7.2 g/dL (6.4-8.2); Sodium Level 132 mmol/L (136-145)
== END ==
LOC: OLS.WHLEAS 05:00
PROVIDERS: PCP Physician Assistant; Visit Provider Internal Medicine
DX: D72.829 Elevated white blood cell count, unspecified (principal); T84.020D Dislocation of internal right hip prosthesis, subsequent encounter; D62 Acute posthemorrhagic anemia; M62.81 Muscle weakness (generalized); Z47.89 Encounter for other orthopedic aftercare
CPT/HCPCS: 36415; 80053; 85025

== ENCOUNTER → 2023-05-05 | Outpatient (REF) | payer MEDICARE, SELFPAY ==
[2023-05-05 10:11] LABS: Absolute Lymphocyte Count 1.18 X10^3/uL (0.83-4.51); Basophil# 0.09 X10^3/uL; Basophil% 1.4 % (0-1); Eosinophil# 0.39 X10^3/uL; Hematocrit 31.6 % (40-54); Hemoglobin 9.9 g/dL (13.0-16.5); Lymphocyte # 1.18 X10^3/ul (0.83-4.51); Lymphocyte % 18.2 % (19-41); Mean Corp Hgb Conc 31.3 g/dL (32-36); Mean Corpuscular Hgb 26.9 pg (27.0-32.0); Mean Corpuscular Volume 85.9 fL (80-94); Mean Platelet Vol. 8.6 fl (6.2-12.0); Monocyte# 0.79 X10^3/uL; Monocyte% 12.2 % (0-10); NRBC Flagged by Analyzer 0 % (0-5); Neutrophil # 3.97 X10^3/uL (2.7-7.7); Platelet Count 430 K/mm3 (150-450); RBC Distribution Width CV 17.6 % (11.6-14.6); RBC Distribution Width SD 54.4 fl (35.1-43.9); Red Blood Count 3.68 M/mm3 (4.6-6.2); White Blood Count 6.5 K/mm3 (4.4-11.0)
[2023-05-05 10:21] LABS: ALB/GLOB Ratio 0.6 RATIO (0.9-2.4); AST(SGOT) 9 U/L (15-37); Alanine Aminotransfer ALT/SGPT 13 U/L (16-61); Albumin, Serum 2.7 g/dL (3.2-5.0); Alkaline Phosphatase 73 U/L (45-117); Anion Gap 6 (5-15); BUN 19 mg/dL (7-18); BUN/Creat Ratio 19.3 RATIO (10-20); Calcium,Total 9.4 mg/dL (8.5-10.1); Chloride 104 mmol/L (98-107); Creatinine, Serum 0.98 mg/dL (0.70-1.30); EST Glomerular Filtration Rate 79 mL/min (>60); Est Glom Filt Rate - Afr Amer 96 mL/min (>60); Globulin 4.8 g/dL (2.2-4.2); Glucose 89 mg/dL (74-106); Protein, Total 7.5 g/dL (6.4-8.2); Sodium Level 134 mmol/L (136-145)
== END ==
LOC: OLS.WHLEAS 05:00
PROVIDERS: PCP Physician Assistant; Visit Provider Internal Medicine
DX: D72.829 Elevated white blood cell count, unspecified (principal); D62 Acute posthemorrhagic anemia; M62.81 Muscle weakness (generalized); R26.2 Difficulty in walking, not elsewhere classified; Z47.89 Encounter for other orthopedic aftercare
CPT/HCPCS: 36415; 80053; 85025

== ENCOUNTER → 2023-05-10 | Outpatient (REF) | payer MEDICARE, SELFPAY ==
[2023-05-10 09:32] LABS: Absolute Lymphocyte Count 1.16 X10^3/uL (0.83-4.51); Absolute Neutrophil Count 4.7 X10^3/uL (2.0-7.7); Basophil# 0.08 X10^3/uL; Basophil% 1.1 % (0-1); Eosinophil# 0.37 X10^3/uL; Eosinophils% 5.3 % (0-5); Hematocrit 31.5 % (40-54); Hemoglobin 9.9 g/dL (13.0-16.5); Lymphocyte # 1.16 X10^3/ul (0.83-4.51); Lymphocyte % 16.5 % (19-41); Mean Corp Hgb Conc 31.4 g/dL (32-36); Mean Corpuscular Hgb 27.7 pg (27.0-32.0); Mean Corpuscular Volume 88.2 fL (80-94); Mean Platelet Vol. 8.9 fl (6.2-12.0); NRBC Flagged by Analyzer 0 % (0-5); Neutrophil # 4.65 X10^3/uL (2.7-7.7); Neutrophil % 66.1 % (47-70); Platelet Count 394 K/mm3 (150-450); RBC Distribution Width CV 19.3 % (11.6-14.6); RBC Distribution Width SD 61.2 fl (35.1-43.9); Red Blood Count 3.57 M/mm3 (4.6-6.2); Reticulocyte Count 1.58 % (0.5-1.5)
[2023-05-10 09:58] LABS: Ferritin 216 ng/mL (26-388); Iron 36 ug/dL (65-175); Iron Binding Capacity,Total 209 ug/dL (250-450); PERCENT IRON SATURATION 17.2 % (15.0-55.0)
== END ==
LOC: OLS.WHLEAS 05:00
PROVIDERS: PCP Physician Assistant; Visit Provider Internal Medicine
DX: D62 Acute posthemorrhagic anemia (principal); M62.81 Muscle weakness (generalized); Z51.89 Encounter for other specified aftercare
CPT/HCPCS: 36415; 82728; 83540; 83550; 85025; 85045

== ENCOUNTER → 2023-05-19 | Outpatient (REF) | payer MEDICARE, SELFPAY ==
[2023-05-19 10:11] LABS: Absolute Lymphocyte Count 0.82 X10^3/uL (0.83-4.51); Absolute Neutrophil Count 2.3 X10^3/uL (2.0-7.7); Basophil# 0.08 X10^3/uL; Basophil% 1.8 % (0-1); Eosinophil# 0.44 X10^3/uL; Eosinophils% 9.9 % (0-5); Hematocrit 31.1 % (40-54); Hemoglobin 9.9 g/dL (13.0-16.5); Lymphocyte # 0.82 X10^3/ul (0.83-4.51); Lymphocyte % 18.5 % (19-41); Mean Corp Hgb Conc 31.8 g/dL (32-36); Mean Corpuscular Hgb 28.6 pg (27.0-32.0); Mean Corpuscular Volume 89.9 fL (80-94); Mean Platelet Vol. 8.7 fl (6.2-12.0); Monocyte# 0.77 X10^3/uL; Monocyte% 17.3 % (0-10); NRBC Flagged by Analyzer 0 % (0-5); Neutrophil % 51.8 % (47-70); POSITIVE MORPHOLOGY YES; Platelet Count 289 K/mm3 (150-450); RBC Distribution Width CV 22.4 % (11.6-14.6); RBC Distribution Width SD 72.5 fl (35.1-43.9); Red Blood Count 3.46 M/mm3 (4.6-6.2); White Blood Count 4.4 K/mm3 (4.4-11.0)
[2023-05-19 10:19] LABS: Differential Indicated SCAN CRITERIA MET
[2023-05-19 10:29] LABS: ALB/GLOB Ratio 0.7 RATIO (0.9-2.4); AST(SGOT) 10 U/L (15-37); Alanine Aminotransfer ALT/SGPT 10 U/L (16-61); Albumin, Serum 2.9 g/dL (3.2-5.0); Alkaline Phosphatase 75 U/L (45-117); Anion Gap 4 (5-15); BUN 12 mg/dL (7-18); BUN/Creat Ratio 14.2 RATIO (10-20); Calcium,Total 9.1 mg/dL (8.5-10.1); Chloride 105 mmol/L (98-107); Creatinine, Serum 0.84 mg/dL (0.70-1.30); EST Glomerular Filtration Rate 95 mL/min (>60); Est Glom Filt Rate - Afr Amer 115 mL/min (>60); Globulin 3.9 g/dL (2.2-4.2); Glucose 83 mg/dL (74-106); Potassium 4.2 mmol/L (3.5-5.1); Protein, Total 6.8 g/dL (6.4-8.2); Sodium Level 137 mmol/L (136-145)
[2023-05-19 10:48] LABS: Anisocytosis 2+
== END ==
LOC: OLS.WHLEAS 06:30
PROVIDERS: PCP Physician Assistant; Visit Provider Internal Medicine
DX: D72.829 Elevated white blood cell count, unspecified (principal); T84.020D Dislocation of internal right hip prosthesis, subsequent encounter; D62 Acute posthemorrhagic anemia; M62.81 Muscle weakness (generalized); Z47.89 Encounter for other orthopedic aftercare
CPT/HCPCS: 36415; 80053; 85025

== ENCOUNTER → 2023-05-24 | Outpatient (REF) | payer MEDICARE, SELFPAY ==
[2023-05-24 10:15] LABS: Color, Urine Yellow (Yellow); Glucose, Dipstick Normal (Normal); Ketone-Dipstick Negative (Negative); Leukocyte Esterase-Dipstick Negative /ul (Negative); Nitrite-Dipstick Positive (Negative); Occult Blood-Urine Negative /ul (Negative); Protein-Dipstick Negative (Negative); Specific Gravity, Urine 1.015 (1.002-1.030); Urine Bilirubin Dipstick Negative (Negative); Urine Clarity Sl. Cloudy (Clear); Urine Urobilinogen Normal (Normal)
== END ==
LOC: OLS.WHLEAS 07:25
PROVIDERS: PCP Physician Assistant; Visit Provider Internal Medicine
DX: N39.0 Urinary tract infection, site not specified (principal); D62 Acute posthemorrhagic anemia; M62.81 Muscle weakness (generalized); R26.2 Difficulty in walking, not elsewhere classified; T84.020D Dislocation of internal right hip prosthesis, subsequent encounter; Z51.89 Encounter for other specified aftercare
CPT/HCPCS: 81002

== ENCOUNTER → 2023-06-16 | Outpatient (REF) | payer MEDICARE, SELFPAY ==
[2023-06-16 08:54] LABS: Absolute Lymphocyte Count 1.19 X10^3/uL (0.83-4.51); Absolute Neutrophil Count 4.5 X10^3/uL (2.0-7.7); Basophil# 0.07 X10^3/uL; Eosinophil# 0.27 X10^3/uL; Eosinophils% 3.9 % (0-5); Hematocrit 35.6 % (40-54); Hemoglobin 11.5 g/dL (13.0-16.5); Lymphocyte # 1.19 X10^3/ul (0.83-4.51); Lymphocyte % 17.2 % (19-41); Mean Corp Hgb Conc 32.3 g/dL (32-36); Mean Corpuscular Hgb 30.7 pg (27.0-32.0); Mean Corpuscular Volume 94.9 fL (80-94); Mean Platelet Vol. 9.4 fl (6.2-12.0); Monocyte# 0.89 X10^3/uL; Monocyte% 12.8 % (0-10); NRBC Flagged by Analyzer 0 % (0-5); Neutrophil # 4.49 X10^3/uL (2.7-7.7); Neutrophil % 64.8 % (47-70); Platelet Count 268 K/mm3 (150-450); RBC Distribution Width CV 18.5 % (11.6-14.6); Red Blood Count 3.75 M/mm3 (4.6-6.2); White Blood Count 6.9 K/mm3 (4.4-11.0)
[2023-06-16 09:15] LABS: Anion Gap 5 (5-15); BUN 15 mg/dL (7-18); BUN/Creat Ratio 19.5 RATIO (10-20); Chloride 107 mmol/L (98-107); Creatinine, Serum 0.77 mg/dL (0.70-1.30); EST Glomerular Filtration Rate 105 mL/min (>60); Est Glom Filt Rate - Afr Amer 127 mL/min (>60); Glucose 89 mg/dL (74-106); Sodium Level 137 mmol/L (136-145)
== END ==
LOC: OLS.WHLEAS 05:00
PROVIDERS: PCP Physician Assistant; Visit Provider Internal Medicine
DX: D72.829 Elevated white blood cell count, unspecified (principal); T84.020D Dislocation of internal right hip prosthesis, subsequent encounter; D62 Acute posthemorrhagic anemia; M62.81 Muscle weakness (generalized); Z47.89 Encounter for other orthopedic aftercare
CPT/HCPCS: 36415; 80048; 85025

== ENCOUNTER 2023-09-28 16:41 | Inpatient (IN) | payer MEDICARE, SELFPAY ==
[2023-09-28 16:43] VITALS: BP 114/72; PULSE 81; RESP 18; TEMP 35.6; O2SAT 94
--- NOTE | 2023-09-28 17:05 | EX.ED.DYSGE1 ---
HPI <AMANDO Saavedra - Last Filed: 09/28/23 19:33> History of Present Illness Chief Complaint: Complaint Narrative Narrative: 73-year-old male states over the last 4 days he has noticed hematuria and slight burning with urination. He also feels weak and his son states he was confused on the phone last night. This is happened before with prior UTIs. He went to urgent care and when trying to provide a urine sample pus came out so they sent him to the ED. He denies fever, chills, nausea, vomiting, or abdominal or flank pain. No recent Dowling or instrumentation. [facility] <AMANDO Saavedra - Last Filed: 09/28/23 19:33> [facility] Medical History Anxiety Essential (primary) hypertension Hepatitis A History of fractured rib (08/12/20) Osteoarthritis Right femoral fracture Home Medications amlodipine 10 mg tablet 10 mg PO DAILY BLOOD PRESSURE 10/28/20 [History Last Taken 09/28/23] gabapentin 300 mg capsule 600 mg PO TID NEUROPATHY 03/29/22 [History Last Taken 09/28/23] tamsulosin 0.4 mg capsule 0.4 mg PO QHS PROSTATE 03/11/23 [History Last Taken 09/27/23] bupropion HCl 300 mg 24 hr tablet, extended release 300 mg PO DAILY DEPRESSION 09/28/23 [History Last Taken 09/28/23] ferrous sulfate 325 mg (65 mg iron) tablet (FeroSul) 325 mg PO BIDCM SUPPLEMENT 09/28/23 [History Last Taken 09/28/23] lisinopril 20 mg tablet 20 mg PO DAILY BLOOD PRESSURE 09/28/23 [History Last Taken 09/28/23] melatonin 5 mg tablet 5 mg PO QHS SLEEP 09/28/23 [History Last Taken 09/27/23] trazodone 50 mg tablet 50 mg PO QHS SLEEP 09/28/23 [History Last Taken 09/27/23] Allergy/AdvReac Type Severity Reaction Status Date / Time diltiazem [From Cardizem] AdvReac unknown Verified 09/28/23 16:42 losartan [From Hyzaar] AdvReac unknown Verified 09/28/23 16:42 metoprolol [From Lopressor] AdvReac unknown Verified 09/28/23 16:42 valsartan [From Diovan] AdvReac unknown Verified 09/28/23 16:42 Family History Mother Heart disease Cancer breast Sister Heart disease Surgical History History of elbow surgery History of hip replacement History of lumbar laminectomy for spinal cord decompression History of shoulder surgery Social History Smoking Status: Former smoker quit date: 11/22/92 pack-years: 46 alcohol intake: former year quit: 1991 ROS <AMANDO Saavedra - Last Filed: 09/28/23 19:33> ROS ED ROS Narrative Constitutional: Negative for fever, chills, malaise. GI: Negative for abdominal pain, nausea, vomiting. : Positive for dysuria, hematuria. Skin: Negative for rash. EXAM <AMANDO Saavedra - Last Filed: 09/28/23 19:33> Physical Exam Narrative Exam Narrative: CONST: Patient sitting in no acute distress. EYES: Normal inspection. NECK: Normal inspection. RESP: No respiratory distress, CTAB. CVS: Regular rate and rhythm, no murmur, no gallop. ABD: Soft and nontender, no guarding or rebound, nondistended. Back: Normal inspection, no CVA tenderness. SKIN: Color normal, no rash, warm, dry, intact. EXTREMITIES: Normal appearance, no pedal edema. NEURO: Oriented x4. PSYCH: Normal affect. Const Vital Signs: 09/28/23 16:43 09/28/23 17:45 09/28/23 18:57 Temperature 96.1 F L 98.1 F 98.0 F Temperature Source Temporal Oral Oral Pulse Rate 81 81 87 Respiratory Rate 18 16 16 Blood Pressure 114/72 142/74 H 141/77 H Blood Pressure Mean 86 96 98 Pulse Ox 94 96 94 Oxygen Delivery Method Room Air Room Air Room Air <Dr. Norm Monte DO - Last Filed: 09/28/23 19:42> Physical Exam Const Vital Signs: 09/28/23 16:43 09/28/23 17:45 09/28/23 18:57 Temperature 96.1 F L 98.1 F 98.0 F Temperature Source Temporal Oral Oral Pulse Rate 81 81 87 Respiratory Rate 18 16 16 Blood Pressure 114/72 142/74 H 141/77 H Blood Pressure Mean 86 96 98 Pulse Ox 94 96 94 Oxygen Delivery Method Room Air Room Air Room Air [facility] <AMANDO Saavedra - Last Filed: 09/28/23 19:33> [facility] Narrative Medical decision making narrative: History gathered from: Patient and son Patient presents with generalized weakness and urinary complaints. He appears well and nontoxic. Vital signs stable. Is a normal cardiopulmonary exam. He has no abdominal or flank tenderness. His urine looks like pus and the urinalysis shows pyuria and is nitrate positive. He has leukocytosis at 12.1, acute kidney injury with BUN of 42, creatinine 1.96, and hyponatremia at 124. Although he does not complain of abdominal/flank pain with his new MUNA I ordered a CT scan to rule out kidney stone or other renal process. CT abdomen/pelvis shows moderate bilateral hydronephrosis with no obstructing stone and urinary bladder wall thickening possibly due to presenting cystitis. On my review of the CT his bladder does look enlarged and imaging was after the nurse had straight catheterized him for urine sample. I am concerned he could have an outlet obstruction from enlarged prostate compounded with UTI causing MUNA so I ordered a Dowling to be placed and he was treated with IV fluids and Rocephin. Case was discussed with the hospitalist for admission. Differential: UTI, pyelonephritis, kidney stone Lab Data Attestation: I reviewed the patient's lab results. Labs: Laboratory Results - last 24 hr 09/28/23 17:35 WBC 12.1 H RBC 3.89 L Hgb 11.4 L Hct 35.9 L MCV 92.3 MCH 29.3 MCHC 31.8 L RDW Std Deviation 52.1 H RDW Coeff of Matthew 15.2 H Plt Count 291 MPV 9.6 Immature Gran % (Auto) 0.700 Neut % (Auto) 77.3 H Lymph % (Auto) 7.1 L [place] % (Auto) 12.7 H Eos % (Auto) 1.6 Baso % (Auto) 0.6 Absolute Neuts (auto) 9.4 H Absolute Lymphs (auto) 0.86 Nucleated RBC % 0 Differential Comment SCANNED Diff Path Review May foll Sodium 124 L Potassium 4.3 Chloride 94 L Carbon Dioxide 26.0 Anion Gap 4 L BUN 42 H Creatinine 1.96 H Estim Creat Clear Calc 35.22 Est GFR (MDRD) Af Amer 43 L Est GFR (MDRD) Non-Af 36 L BUN/Creatinine Ratio 21.4 H Glucose 121 H Calcium 8.9 Urine Color Yellow Urine Clarity Cloudy Urine pH 6.0 Ur Specific [place] 1.010 Urine Protein 100 H Urine Glucose (UA) Normal Urine Ketones 5 H Urine Occult Blood 250 H Urine Nitrite Positive H Urine Bilirubin Negative Urine Urobilinogen Normal Ur Leukocyte Esterase 500 H Urine RBC 0 SEEN Urine WBC >100 SEEN Ur Squamous Epith Cells 0 SEEN Urine Bacteria 0 SEEN Urine Mucus 0 SEEN Radiography Diagnostic Testing: Clinical Impression(s) from Imaging Studies Abdomen/Pelvis CT 09/28/23 18:05 IMPRESSION: Moderate bilateral hydronephrosis and hydroureter with no obstructing stone identified. There is minimal urinary bladder wall thickening possibly representing cystitis with possible extrinsic compression of the ureters. If indicated further evaluation with cystoscopy or retrograde pyelography may be beneficial. No other acute abnormalities are identified. Electronically Signed: Moiz Peters MD at 19:15 EST , <Dr. Norm Monte, DO - Last Filed: 09/28/23 19:42> [facility] Narrative Medical decision making narrative: History gathered from: Patient and son Patient presents with generalized weakness and urinary complaints. He appears well and nontoxic. Vital signs stable. Is a normal cardiopulmonary exam. He has no abdominal or flank tenderness. His urine looks like pus and the urinalysis shows pyuria and is nitrate positive. He has leukocytosis at 12.1, acute kidney injury with BUN of 42, creatinine 1.96, and hyponatremia at 124. Although he does not complain of abdominal/flank pain with his new MUNA I ordered a CT scan to rule out kidney stone or other renal process. CT abdomen/pelvis shows moderate bilateral hydronephrosis with no obstructing stone and urinary bladder wall thickening possibly due to presenting cystitis. On my review of the CT his bladder does look enlarged and imaging was after the nurse had straight catheterized him for urine sample. I am concerned he could have an outlet obstruction from enlarged prostate compounded with UTI causing MUNA so I ordered a Dowling to be placed and he was treated with IV fluids and Rocephin. Case was discussed with the hospitalist for admission. Differential: UTI, pyelonephritis, kidney stone, urinary outlet obstruction, dehydration, electrolyte abnormality, acute kidney injury. This patient was seen with a PA/CONTACT REPRESENTATIVE Individually assessed they patient including history and physical. I have reviewed everything on the chart that is available and agree with the documentation provided by the PA/CONTACT REPRESENTATIVE including discussion about the assessment, treatment plan, discussion, and return precautions. Patient presenting with some confusion and urinary symptoms. On examination he does have what looks to be ramon pus coming from his urethra. Catheterized urine was obtained and he is evidently infected. Patient given Rocephin and IV fluids. CBC shows a leukocytosis of 12.1. Hemoglobin stable at 11 4. Platelets are normal to 91. Creatinine is elevated at 1.96 with a baseline of 0.77. Sodium is low at 124 which may be adding to his confusion. Urine was sent for culture. I was informed that the patient had some nausea and vomiting x1. He was given Zofran and this resolved. He is now feeling hungry. CT of the ab pelvis without contrast was obtained which shows urinary outlet obstruction but no evidence of kidney stone. Dowling catheter was placed. Impression: 1. UTI 2. Urinary outlet obstruction 3. Delirium 4. Nausea/vomiting 5. Hyponatremia Lab Data Labs: Laboratory Results - last 24 hr 09/28/23 17:35 WBC 12.1 H RBC 3.89 L Hgb 11.4 L Hct 35.9 L MCV 92.3 MCH 29.3 MCHC 31.8 L RDW Std Deviation 52.1 H RDW Coeff of Matthew 15.2 H Plt Count 291 MPV 9.6 Immature Gran % (Auto) 0.700 Neut % (Auto) 77.3 H Lymph % (Auto) 7.1 L [place] % (Auto) 12.7 H Eos % (Auto) 1.6 Baso % (Auto) 0.6 Absolute Neuts (auto) 9.4 H Absolute Lymphs (auto) 0.86 Nucleated RBC % 0 Differential Comment SCANNED Diff Path Review May foll Sodium 124 L Potassium 4.3 Chloride 94 L Carbon Dioxide 26.0 Anion Gap 4 L BUN 42 H Creatinine 1.96 H Estim Creat Clear Calc 35.22 Est GFR (MDRD) Af Amer 43 L Est GFR (MDRD) Non-Af 36 L BUN/Creatinine Ratio 21.4 H Glucose 121 H Calcium 8.9 Urine Color Yellow Urine Clarity Cloudy Urine pH 6.0 Ur Specific [place] 1.010 Urine Protein 100 H Urine Glucose (UA) Normal Urine Ketones 5 H Urine Occult Blood 250 H Urine Nitrite Positive H Urine Bilirubin Negative Urine Urobilinogen Normal Ur Leukocyte Esterase 500 H Urine RBC 0 SEEN Urine WBC >100 SEEN Ur Squamous Epith Cells 0 SEEN Urine Bacteria 0 SEEN Urine Mucus 0 SEEN Radiography Diagnostic Testing: Clinical Impression(s) from Imaging Studies Abdomen/Pelvis CT 09/28/23 18:05 IMPRESSION: Moderate bilateral hydronephrosis and hydroureter with no obstructing stone identified. There is minimal urinary bladder wall thickening possibly representing cystitis with possible extrinsic compression of the ureters. If indicated further evaluation with cystoscopy or retrograde pyelography may be beneficial. No other acute abnormalities are identified. Electronically Signed: Moiz Peters MD at 19:15 EST , Discharge Plan Triage Chief Complaint: Complaint ED Midlevel Provider: Yudy Gomez ED Provider: Norm Monte Dx/Rx/DC Orders Clinical Impression: Acute kidney injury, Bilateral hydronephrosis, Acute UTI, Acute urinary retention, Acute hyponatremia Prescriptions: No Action trazodone 150 mg tablet 150 mg PO QHS amlodipine 10 mg tablet 10 mg PO DAILY gabapentin 300 mg capsule 600 mg PO TID meloxicam 15 mg tablet 15 mg PO DAILY tamsulosin 0.4 mg capsule 0.4 mg PO QHS nitrofurantoin monohyd/m-cryst 100 mg capsule 1 cap PO BID trazodone 50 mg tablet 50 mg PO QHS lisinopril 20 mg tablet 20 mg PO DAILY ferrous sulfate [FeroSul] 325 mg (65 mg iron) tablet 325 mg PO BIDCM bupropion HCl 300 mg tablet extended release 24 hr 300 mg PO DAILY melatonin 5 mg tablet 5 mg PO QHS Primary Care Provider: Marbella Zaidi Referrals: Zaidi,M Aldo PA, PA [Primary Care Provider] -
[2023-09-28 17:06] VITALS: BMI 30.9
[2023-09-28 17:44] LABS: Bacteria 0 SEEN /hpf (None Seen); Mucous, Urine 0 SEEN /hpf (<or=2+); Red Blood Cells-Urine 0 SEEN /hpf (0-5); Squamous Epithelial Cells - UA 0 SEEN /hpf (0-5)
[2023-09-28 17:45] VITALS: BP 142/74; PULSE 81; RESP 16; TEMP 36.7; O2SAT 96
[2023-09-28 17:46] LABS: Absolute Lymphocyte Count 0.86 X10^3/uL (0.83-4.51); Absolute Neutrophil Count 9.4 X10^3/uL (2.0-7.7); Basophil# 0.07 X10^3/uL; Basophil% 0.6 % (0-1); Eosinophil# 0.19 X10^3/uL; Eosinophils% 1.6 % (0-5); Hematocrit 35.9 % (40-54); Hemoglobin 11.4 g/dL (13.0-16.5); Lymphocyte # 0.86 X10^3/ul (0.83-4.51); Lymphocyte % 7.1 % (19-41); Mean Corp Hgb Conc 31.8 g/dL (32-36); Mean Corpuscular Hgb 29.3 pg (27.0-32.0); Mean Corpuscular Volume 92.3 fL (80-94); Mean Platelet Vol. 9.6 fl (6.2-12.0); Monocyte# 1.54 X10^3/uL; Monocyte% 12.7 % (0-10); NRBC Flagged by Analyzer 0 % (0-5); Neutrophil # 9.38 X10^3/uL (2.7-7.7); Neutrophil % 77.3 % (47-70); POSITIVE DIFFERENTIAL YES; Platelet Count 291 K/mm3 (150-450); RBC Distribution Width CV 15.2 % (11.6-14.6); RBC Distribution Width SD 52.1 fl (35.1-43.9); Red Blood Count 3.89 M/mm3 (4.6-6.2); White Blood Count 12.1 K/mm3 (4.4-11.0)
[2023-09-28 17:48] LABS: Differential Indicated SCAN CRITERIA MET
[2023-09-28] MEDS: Ceftriaxone 1 GM/50 ML BAG IV (17:56)
[2023-09-28 18:00] LABS: Anion Gap 4 (5-15); BUN 42 mg/dL (7-18); BUN/Creat Ratio 21.4 RATIO (10-20); Calcium,Total 8.9 mg/dL (8.5-10.1); Chloride 94 mmol/L (98-107); Creatinine, Serum 1.96 mg/dL (0.70-1.30); EST Glomerular Filtration Rate 36 mL/min (>60); Est Glom Filt Rate - Afr Amer 43 mL/min (>60); Estimated Creatinine Clearance 35.22 ml/min; Glucose 121 mg/dL (74-106); Potassium 4.3 mmol/L (3.5-5.1); Sodium Level 124 mmol/L (136-145)
--- NOTE | 2023-09-28 18:05 | CT_ITS ---
EXAM: CT ABDOMEN AND PELVIS WITHOUT INTRAVENOUS CONTRAST CLINICAL INDICATION: abdominal pain, pyuria TECHNIQUE: Helically acquired images were obtained of the abdomen and pelvis without intravenous contrast. This CT exam was performed using one or more of the following dose reduction techniques: automated exposure control, adjustment of the mA and/or kV according to patient size, and/or use of iterative reconstruction technique. COMPARISON: No relevant prior studies available. FINDINGS: LOWER THORAX: Unremarkable. Lung bases are clear. No cardiomegaly. No significant pericardial effusion. ABDOMEN: LIVER: Unremarkable. Homogeneous. GALLBLADDER AND BILE DUCTS: Unremarkable. No calcified gallstones. No gallbladder distention or wall edema. No intra- or extrahepatic biliary ductal dilation. PANCREAS: Unremarkable. No focal cystic mass. SPLEEN: Unremarkable. Normal size without focal cystic or solid mass. ADRENALS: Unremarkable. No nodules. KIDNEYS AND URETERS: Bilateral hydronephrosis and hydroureter. Normal renal size and position. STOMACH AND BOWEL: Unremarkable. No stomach or bowel distention. No focal inflammatory change. PELVIS: APPENDIX: No evidence of acute appendicitis. BLADDER: There is minimal bladder wall thickening. REPRODUCTIVE: Unremarkable as visualized. No mass. ABDOMEN and PELVIS: INTRAPERITONEAL SPACE: Unremarkable. No ascites or other fluid collection. No free air. BONES/JOINTS: There is beam hardening artifact in the pelvis due to a right hip prosthesis. No suspicious lytic or blastic abnormality. SOFT TISSUES: Unremarkable. No discrete abdominal or pelvic wall hernia. VASCULATURE: Unremarkable. Abdominal aorta is non-dilated. LYMPH NODES: Unremarkable. No enlarged lymph nodes. OTHER FINDINGS: There are no obstructing stone identified. CT/Abdomen/Pelvis without Cont IMPRESSION: Moderate bilateral hydronephrosis and hydroureter with no obstructing stone identified. There is minimal urinary bladder wall thickening possibly representing cystitis with possible extrinsic compression of the ureters. If indicated further evaluation with cystoscopy or retrograde pyelography may be beneficial. No other acute abnormalities are identified. Electronically Signed: Moiz Peters MD at 19:15 EST ,
[2023-09-28 18:07] LABS: Color, Urine Yellow (Yellow); Glucose, Dipstick Normal (Normal); Ketone-Dipstick 5 mg/dl (Negative); Leukocyte Esterase-Dipstick 500 /ul (Negative); Nitrite-Dipstick Positive (Negative); Occult Blood-Urine 250 /ul (Negative); Protein-Dipstick 100 mg/dl (Negative); Urine Bilirubin Dipstick Negative (Negative); Urine Clarity Cloudy (Clear); Urine Urobilinogen Normal (Normal)
[2023-09-28 18:13] LABS: White Blood Cells >100 SEEN /hpf (0-5)
[2023-09-28 18:18] LABS: Differential Comment SCANNED
[2023-09-28] MEDS: Ondansetron 4 MG/2 ML Vial IV (18:35)
[2023-09-28] MEDS: 0.9% Normal Saline (1000mL) 1,000 ML 999 ML IV (18:35)
[2023-09-28 18:57] VITALS: BP 141/77; PULSE 87; RESP 16; TEMP 36.7; O2SAT 94
[2023-09-28 20:00] VITALS: BP 144/73; PULSE 85; RESP 16; TEMP 36.4; O2SAT 97
--- NOTE | 2023-09-28 20:20 | HP.PCM.HOS_ITS ---
[facility] - General General Date of Admission: 09/28/23 Date of Service: 09/28/23 Chief Complaint: Hematuria and dysuria [facility] Narrative MIROSLAVA PERALTA, is a 73 M with a past medical history of essential hypertension, osteoarthritis, obesity with BMI of 30.8 this admission, depression with anxiety, history of hepatitis A, history of lumbar laminectomy for spinal cord decompression and history of right femoral fracture who presents to [facility] ER complaining of hematuria and dysuria. Mr. Peralta reports his symptoms began approximately 4 days prior to admission with a gradual onset of painful urination that culminated today with pus in his urine which finally made him decide to come in for further evaluation and treatment. He denies associated abdominal pain or flank pain. He admits to generalized weakness and his family had noted some confusion on the phone the previous evening which is typical of his previous UTIs but this was more severe than his previous infections. He denies associated fever chills nausea vomiting, Dowling catheter or recent urinary procedure. In the ER he was diagnosed with acute cystitis with his UA positive for infection and a CT scan of the abdomen/pelvis revealing bladder wall thickening and bilateral hydronephrosis with a white blood cell count of 12.1 and acute kidney injury with a BUN of 42 mg/dL and a creatinine of 1.96 mg/dL (up from his baseline of approximately 1.4 mg/dL) with hyponatremia of 124 mmol/L present on admission and he was then started on IV Rocephin and had a Dowling catheter placed along with IV fluids and he was then admitted to the general medical floor for ongoing care for a stay that is expected to extend beyond 48 hours [facility] Medical History (Updated 09/28/23 @ 21:21 by Shraddha Cunha) Anxiety Anxiety Depression Essential (primary) hypertension GERD (gastroesophageal reflux disease) Hepatitis A History of fractured rib (08/12/20) Hypertension Osteoarthritis Right femoral fracture Vision loss of right eye Home Medications amlodipine 10 mg tablet 10 mg PO DAILY BLOOD PRESSURE 10/28/20 [History Last Taken 09/28/23] gabapentin 300 mg capsule 600 mg PO TID NEUROPATHY 03/29/22 [History Last Taken 09/28/23] tamsulosin 0.4 mg capsule 0.4 mg PO QHS PROSTATE 03/11/23 [History Last Taken 09/27/23] bupropion HCl 300 mg 24 hr tablet, extended release 300 mg PO DAILY DEPRESSION 09/28/23 [History Last Taken 09/28/23] ferrous sulfate 325 mg (65 mg iron) tablet (FeroSul) 325 mg PO BIDCM SUPPLEMENT 09/28/23 [History Last Taken 09/28/23] lisinopril 20 mg tablet 20 mg PO DAILY BLOOD PRESSURE 09/28/23 [History Last Taken 09/28/23] melatonin 5 mg tablet 5 mg PO QHS SLEEP 09/28/23 [History Last Taken 09/27/23] trazodone 50 mg tablet 50 mg PO QHS SLEEP 09/28/23 [History Last Taken 09/27/23] Allergy/AdvReac Type Severity Reaction Status Date / Time diltiazem [From Cardizem] AdvReac unknown Verified 09/28/23 16:42 losartan [From Hyzaar] AdvReac unknown Verified 09/28/23 16:42 metoprolol [From Lopressor] AdvReac unknown Verified 09/28/23 16:42 valsartan [From Diovan] AdvReac unknown Verified 09/28/23 16:42 Family History Mother Heart disease Cancer breast Sister Heart disease Surgical History History of elbow surgery History of hip replacement History of lumbar laminectomy for spinal cord decompression History of shoulder surgery Social History Smoking Status: Former smoker quit date: 11/22/92 pack-years: 46 alcohol intake: former year quit: 1991 ROS ROS Narrative Review of systems: Constitutional: Negative for fevers chills or malaise. Eyes: Patient denies acute visual changes. HEENT: Patient admits to dry mucous membranes. Cardiovascular: Patient denies chest pain or palpitations. Gastrointestinal: Patient denies abdominal pain, nausea, vomiting or diarrhea. Genitourinary: Patient admits to dysuria and hematuria. Skin: Negative for rash. Psychiatry: Patient denies depression or anxiety. 14 point review system otherwise negative except for positives noted in HPI. Vital Signs Vital Signs Vital Signs: 09/28/23 16:43 09/28/23 17:45 09/28/23 18:57 Temperature 96.1 F L 98.1 F 98.0 F Temperature Source Temporal Oral Oral Pulse Rate 81 81 87 Respiratory Rate 18 16 16 Blood Pressure 114/72 142/74 H 141/77 H Blood Pressure Mean 86 96 98 Pulse Ox 94 96 94 Oxygen Delivery Method Room Air Room Air Room Air 09/28/23 20:00 09/28/23 20:00 Temperature 97.6 F L Temperature Source Temporal Pulse Rate 85 Respiratory Rate 16 Blood Pressure 144/73 H 144/73 H Blood Pressure Mean 96 96 Pulse Ox 97 Oxygen Delivery Method Weight Weight: 221 lb 1.978 oz Body Mass Index (BMI) 30.9 Physical Exam Const alert, oriented x3, no apparent distress and average body habitus General Appearance: cooperative HEENT normocephalic, head/scalp atraumatic, hearing grossly normal bilaterally and moist oral mucous membranes Mouth: oral and palatal mucosa normal Eyes PERRL, EOMs intact bilaterally and conjunctivae normal Neck no lymphadenopathy, supple and no JVD Resp normal respiratory effort, no retractions, no use of accessory muscles and clear to auscultation bilaterally Cardio regular rate and regular rhythm GI normal to inspection, nondistended, normoactive bowel sounds, soft to palpation, non-tender and non-distended Extremity normal to inspection Neuro oriented x3, CN's II-XII intact bilaterally and moves all extremities Sensorium / Orientation: awake, alert, oriented to person, oriented to place and oriented to time Speech: speech normal Motor Exam: strength 5/5 throughout Psych affect normal Results Medical Records Data Attestation: I reviewed the patient's medical records Lab / Micro Data Attestation: I reviewed the patient's lab results. 09/28/23 17:35 09/28/23 17:35 Labs: Laboratory Results - last 24 hr 09/28/23 17:35: WBC 12.1 H, RBC 3.89 L, Hgb 11.4 L, Hct 35.9 L, MCV 92.3, MCH 29.3, MCHC 31.8 L, RDW Std Deviation 52.1 H, RDW Coeff of Matthew 15.2 H, Plt Count 291, MPV 9.6, Immature Gran % (Auto) 0.700, Neut % (Auto) 77.3 H, Lymph % (Auto) 7.1 L, [place] % (Auto) 12.7 H, Eos % (Auto) 1.6, Baso % (Auto) 0.6, Absolute Neuts (auto) 9.4 H, Absolute Lymphs (auto) 0.86, Nucleated RBC % 0, Differential Comment SCANNED, Diff Path Review March, Sodium 124 L, Potassium 4.3, Chloride 94 L, Carbon Dioxide 26.0, Anion Gap 4 L, BUN 42 H, Creatinine 1.96 H, Estim Creat Clear Calc 35.22, Est GFR (MDRD) Af Amer 43 L, Est GFR (MDRD) Non-Af 36 L, BUN/Creatinine Ratio 21.4 H, Glucose 121 H, Calcium 8.9, Urine Color Yellow, Urine Clarity Cloudy, Urine pH 6.0, Ur Specific [place] 1.010, Urine Protein 100 H, Urine Glucose (UA) Normal, Urine Ketones 5 H, Urine Occult Blood 250 H, Urine Nitrite Positive H, Urine Bilirubin Negative, Urine Urobilinogen Normal, Ur Leukocyte Esterase 500 H, Urine RBC 0 SEEN, Urine WBC >100 SEEN, Ur Squamous Epith Cells 0 SEEN, Urine Bacteria 0 SEEN, Urine Mucus 0 SEEN Radiology Impression Abdomen/Pelvis CT 09/28/23 18:05 IMPRESSION: Moderate bilateral hydronephrosis and hydroureter with no obstructing stone identified. There is minimal urinary bladder wall thickening possibly representing cystitis with possible extrinsic compression of the ureters. If indicated further evaluation with cystoscopy or retrograde pyelography may be beneficial. No other acute abnormalities are identified. Electronically Signed: Moiz Peters MD at 19:15 EST , Assessment & Plan Assessment/Plan (1) Acute hyponatremia: (2) Acute UTI: (3) Acute kidney injury: PLAN: Plan 1. Acute cystitis with leukocytosis of 12.1 present on admission and bilateral hydronephrosis on CT this admission -admit to general medical floor. Continue broad-spectrum antibiotics and await culture and sensitivity data to narrow antibiotic spectrum. Give Tylenol as needed fever or pain. 2. Acute kidney injury with creatinine of 1.96 mg/dL present on admission secondary to urinary retention related to #1 - Volume resuscitate with normal saline and recheck BUN/creatinine in a.m. 3. Acute hyponatremia of 124 mmol/L present on admission complicating #1 and #2 - Give normal saline IV fluid and recheck BMP in a.m. to ensure improvement. 4. Essential hypertension - Hold potentially nephrotoxic medications. Give IV hydralazine as needed for systolic blood pressure greater than 160 mmHg. 5. Obesity; with BMI of 30.8 this admission - Weight loss will be recommended. 6. Osteoarthritis -we will potentially nephrotoxic medications. 7. Depression with anxiety-continue home medications as previous. 8. History of hepatitis A - Noted. 9. History of lumbar laminectomy for spinal cord decompression-noted. 10. History of right femoral fracture-noted. 11. DVT prophylaxis -Lovenox 30 mg subcu daily. Charges/Coding Visit Charges Inpatient E&M: 24961 Init Hosp L2
[2023-09-28 20:45] VITALS: BP 144/73; PULSE 85; RESP 18; O2SAT 99
[2023-09-28 21:15] VITALS: BMI 29.7
[2023-09-28 21:31] VITALS: BP 144/70; PULSE 90; RESP 16; TEMP 37.2; O2SAT 93
[2023-09-28] MEDS: Ondansetron ODT 4 MG Tablet PO (21:36)
[2023-09-28] MEDS: 0.9% Normal Saline (1000mL) 1,000 ML 100 ML IV (22:08)
[2023-09-28] MEDS: Tamsulosin HCl 0.4 MG Capsule PO (22:12)
[2023-09-28] MEDS: traZODone 50 MG Tablet PO (22:12)
[2023-09-28] MEDS: Gabapentin 600 MG Tablet PO (22:13)
[2023-09-28] MEDS: MELATONIN 10 MG TABLET 5 MG PO (22:13)
[2023-09-29 04:29] VITALS: BP 111/60; PULSE 89; RESP 18; TEMP 37.3; O2SAT 92
[2023-09-29] MEDS: Gabapentin 600 MG Tablet PO ×3 (04:55→22:17)
[2023-09-29] MEDS: 0.9% Normal Saline (1000mL) 1,000 ML 100 ML IV ×2 (04:55→16:50)
[2023-09-29] MEDS: Menthol/Lanolin/Calamine/Znox 113 GM Tube 1 APPLIC TOPICAL ×2 (04:55→22:18)
[2023-09-29 07:56] LABS: Absolute Lymphocyte Count 0.87 X10^3/uL (0.83-4.51); Absolute Neutrophil Count 10.2 X10^3/uL (2.0-7.7); Basophil# 0.04 X10^3/uL; Basophil% 0.3 % (0-1); Eosinophil# 0.13 X10^3/uL; Hematocrit 32.6 % (40-54); Hemoglobin 10.4 g/dL (13.0-16.5); Lymphocyte # 0.87 X10^3/ul (0.83-4.51); Lymphocyte % 6.9 % (19-41); Mean Corp Hgb Conc 31.9 g/dL (32-36); Mean Corpuscular Hgb 29.1 pg (27.0-32.0); Mean Corpuscular Volume 91.3 fL (80-94); Mean Platelet Vol. 9.7 fl (6.2-12.0); Monocyte# 1.44 X10^3/uL; Monocyte% 11.3 % (0-10); NRBC Flagged by Analyzer 0 % (0-5); Neutrophil # 10.17 X10^3/uL (2.7-7.7); Neutrophil % 80.1 % (47-70); Platelet Count 252 K/mm3 (150-450); RBC Distribution Width CV 15.1 % (11.6-14.6); RBC Distribution Width SD 50.8 fl (35.1-43.9); Red Blood Count 3.57 M/mm3 (4.6-6.2); White Blood Count 12.7 K/mm3 (4.4-11.0)
[2023-09-29] MEDS: Ferrous Sulfate 325 MG Tablet PO ×2 (08:22→16:52)
[2023-09-29 08:31] VITALS: BP 108/54; PULSE 85; RESP 18; TEMP 36.7; O2SAT 91
[2023-09-29 08:41] LABS: Anion Gap 6 (5-15); BUN 26 mg/dL (7-18); Calcium,Total 8.2 mg/dL (8.5-10.1); Chloride 106 mmol/L (98-107); EST Glomerular Filtration Rate 57 mL/min (>60); Est Glom Filt Rate - Afr Amer 69 mL/min (>60); Glucose 108 mg/dL (74-106); Potassium 4.4 mmol/L (3.5-5.1); Sodium Level 135 mmol/L (136-145)
[2023-09-29] MEDS: buPROPion (XL) 300 MG TABLET.XL PO (09:23)
[2023-09-29] MEDS: amLODIPine 10 MG Tablet PO (09:23)
[2023-09-29] MEDS: Acetaminophen 325 MG Tablet 650 MG PO ×3 (09:25→22:16)
[2023-09-29] MEDS: Ceftriaxone 1 GM/50 ML BAG IV (09:28)
[2023-09-29 09:41] VITALS: BP 106/52; PULSE 84; RESP 18; TEMP 36.7; O2SAT 92
--- NOTE | 2023-09-29 10:03 | CASEMGMT ---
Social Work SW met with pt to discuss advance directives.? Pt confirms he has completed a living will and health care POA naming his daughter Ailin Villalta.? Pt notified that documents are not on file at [facility] and SW requested they be brought in for scanning into the EMR.? MARGARITA Payan
--- NOTE | 2023-09-29 13:30 | CASEMGMT ---
IMMANUEL HOWE Assessment: Face to Face with pt for initial transition planning/care coordination assessment. RN SHYAM introduced self and role at [facility], pt voices understanding and consents to assessment. Pt is A&O x4 and answers all questions appropriately at this time. Pt sitting on edge of bed eating lunch in no distress. Care providers, pharmacy, and demographics verified/updated. Admitting Dx: acute cystitis with MUNA PCP:AMANDO Page Specialists:jaxson Samuel Pharmacy[facility] Pres[facility] Benefit: yes LNOK: Jocelin Man, friend; Ailin Villalta dtr Living Arrangements: Pt lives alone in a second floor apt with an elevator to enter. Once pt is in apt there are no steps to maneuver. Pt reports he prepares his own meals, does laundry. His friend gets groceries for him. Pt denies concerns at home. 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 Pt states his friend's provides transportation or he uses the hospital van. 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 Pt is currently going to [facility] for outpt therapy. He requested RN SHYAM call to let them know that he is in the hospital. TC to [facility], left message with this information. Pt states no concerns with going home at time of dc. He states he would like to resume [facility] at [facility]. Pt states he had fallen about 8 mos ago and had 3 surgeries on his femur/hip. Pt has been in the w/c since but was getting stronger and using the walker more than the w/c. Pt states no further concerns/needs. CM to follow. Advised pt to ask CM if any further question/concerns/needs arise, voices understanding. Pt Goal: Home with outpt therapy at [facility] Plan: Home with outpt therapy at [facility]
[2023-09-29 13:56] VITALS: BP 126/70; PULSE 86; RESP 18; TEMP 36.6; O2SAT 95
--- NOTE | 2023-09-29 15:51 | PN.HOSP_ITS ---
Reason for Visit Reason for Visit: Diagnoses Hypo-osmolality and hyponatremia (09/28/23) Acute kidney failure, unspecified (09/28/23) Urinary tract infection, site not specified (09/28/23) Subjective Subjective Seen and examined today, he is resting quietly but awakens to verbal and tactile stimulation, he does not complain of any fever or chills. Urine culture grew out a gram-negative gill, he has gross hematuria. Objective Data Objective Data Vital Signs: Vital Signs Temp Pulse Resp BP Pulse Ox O2 Del Method 97.9 F 86 18 126/70 H 95 Room Air 09/29/23 13:56 09/29/23 13:56 09/29/23 13:56 09/29/23 13:56 09/29/23 13:56 09/29/23 13:56 Oxygen Delivery Method Room Air Weight: 96.797 kg Body Mass Index (BMI) 29.7 Intake & Output: Intake and Output for Last 24 Hours 09/27/23 09/28/23 09/29/23 23:59 23:59 23:59 Intake Total 1050 / 1050 1078.33 / 1078.33 Output Total 1100 / 1100 2550 / 2550 Balance -50 / -50 -1471.67 / -1471.67 Lab / Micro Data 09/29/23 07:25 09/29/23 07:25 Labs: Laboratory Results - last 24 hr 09/28/23 17:35: WBC 12.1 H, RBC 3.89 L, Hgb 11.4 L, Hct 35.9 L, MCV 92.3, MCH 29.3, MCHC 31.8 L, RDW Std Deviation 52.1 H, RDW Coeff of Matthew 15.2 H, Plt Count 291, MPV 9.6, Immature Gran % (Auto) 0.700, Neut % (Auto) 77.3 H, Lymph % (Auto) 7.1 L, [place] % (Auto) 12.7 H, Eos % (Auto) 1.6, Baso % (Auto) 0.6, Absolute Neuts (auto) 9.4 H, Absolute Lymphs (auto) 0.86, Nucleated RBC % 0, Differential Comment SCANNED, Diff Path Review March, Sodium 124 L, Potassium 4.3, Chloride 94 L, Carbon Dioxide 26.0, Anion Gap 4 L, BUN 42 H, Creatinine 1.96 H, Estim Creat Clear Calc 35.22, Est GFR (MDRD) Af Amer 43 L, Est GFR (MDRD) Non-Af 36 L, BUN/Creatinine Ratio 21.4 H, Glucose 121 H, Calcium 8.9, Urine Color Yellow, Urine Clarity Cloudy, Urine pH 6.0, Ur Specific [place] 1.010, Urine Protein 100 H, Urine Glucose (UA) Normal, Urine Ketones 5 H, Urine Occult Blood 250 H, Urine Nitrite Positive H, Urine Bilirubin Negative, Urine Urobilinogen Normal, Ur Leukocyte Esterase 500 H, Urine RBC 0 SEEN, Urine WBC >100 SEEN, Ur Squamous Epith Cells 0 SEEN, Urine Bacteria 0 SEEN, Urine Mucus 0 SEEN 09/29/23 07:25: WBC 12.7 H, RBC 3.57 L, Hgb 10.4 L, Hct 32.6 L, MCV 91.3, MCH 29.1, MCHC 31.9 L, RDW Std Deviation 50.8 H, RDW Coeff of Matthew 15.1 H, Plt Count 252, MPV 9.7, Immature Gran % (Auto) 0.400, Neut % (Auto) 80.1 H, Lymph % (Auto) 6.9 L, [place] % (Auto) 11.3 H, Eos % (Auto) 1.0, Baso % (Auto) 0.3, Absolute Neuts (auto) 10.2 H, Absolute Lymphs (auto) 0.87, Nucleated RBC % 0, Sodium 135 L, Potassium 4.4, Chloride 106, Carbon Dioxide 23.0, Anion Gap 6, BUN 26 H, Creatinine 1.30, Estim Creat Clear Calc 53.10, Est GFR (MDRD) Af Amer 69, Est GF R (MDRD) Non-Af 57 L, BUN/Creatinine Ratio 20.0, Glucose 108 H, Calcium 8.2 L Micro: Microbiology 09/28/23 17:35 Urine, Catheterized Urine Culture - Preliminary Gram negative gill Radiography Diagnostic Testing: Radiology Impression Abdomen/Pelvis CT 09/28/23 18:05 IMPRESSION: Moderate bilateral hydronephrosis and hydroureter with no obstructing stone identified. There is minimal urinary bladder wall thickening possibly representing cystitis with possible extrinsic compression of the ureters. If indicated further evaluation with cystoscopy or retrograde pyelography may be beneficial. No other acute abnormalities are identified. Electronically Signed: Moiz Peters MD at 19:15 EST , Physical Exam Const alert, no apparent distress and average body habitus General Appearance: cooperative, well kempt and well developed Orientation / Consciousness: awake, oriented to person and oriented to place HEENT normocephalic, head/scalp atraumatic and moist oral mucous membranes Eyes PERRL, EOMs intact bilaterally and conjunctivae normal Neck supple, no JVD, thyroid normal and no carotid bruits General: trachea midline Resp normal respiratory effort, no retractions, no use of accessory muscles and clear to auscultation bilaterally Auscultation: Negative for rales, rhonchi or wheezes Cardio regular rate, regular rhythm, S1 normal heart sound, S2 normal heart sound, no murmurs, no rub and no gallops GI normal to inspection, nondistended, normoactive bowel sounds, soft to palpation, non-tender and non-distended Extremity no clubbing, cyanosis or edema Skin no rashes or lesions noted General Skin Exam: no breakdown Neuro CN's II-XII intact bilaterally, moves all extremities, no focal motor deficits and no sensory deficits noted Sensorium / Orientation: awake, alert, oriented to person and oriented to place Speech: speech normal Psych affect normal Assessment & Plan Assessment/Plan (1) Acute UTI: PLAN: Plan 1. Acute cystitis-patient will continue on IV Rocephin, CBC will be repeated tomorrow #2 hyponatremia-patient's sodium today was 135, continue IV fluids #3 acute urinary retention secondary to BPH-patient's Flomax will be increased 2.8 mg daily #4 essential hypertension-patient will remain on Norvasc #5 chronic depression-patient is on Wellbutrin #6 iron deficiency anemia-patient is on ferrous sulfate Total clinical time spent by myself addressing the patient's medical issues, reviewing all of his data, and collaborating with patient's care team: 35 minutes Charges/Coding Visit Charges Inpatient E&M: 24339 Subs Hosp L2
[2023-09-29 17:00] VITALS: BP 114/62; PULSE 80; RESP 18; TEMP 36.5; O2SAT 95
[2023-09-29 22:08] VITALS: BP 122/72; PULSE 84; RESP 18; TEMP 36.9; O2SAT 93
[2023-09-29] MEDS: Tamsulosin HCl 0.4 MG Capsule 0.8 MG PO (22:17)
[2023-09-29] MEDS: traZODone 50 MG Tablet PO (22:17)
[2023-09-29] MEDS: Miconazole Nitrate 43 GM Bottle 1 APPLIC TOPICAL (22:17)
[2023-09-29] MEDS: MELATONIN 10 MG TABLET 5 MG PO (22:17)
[2023-09-30] MEDS: 0.9% Normal Saline (1000mL) 1,000 ML 100 ML IV ×2 (03:33→14:35)
[2023-09-30 03:54] VITALS: BP 122/84; PULSE 76; RESP 18; TEMP 36.5; O2SAT 96
[2023-09-30] MEDS: Acetaminophen 325 MG Tablet 650 MG PO ×3 (04:00→22:06)
[2023-09-30] MEDS: Gabapentin 600 MG Tablet PO ×3 (06:48→22:05)
[2023-09-30] MEDS: Menthol/Lanolin/Calamine/Znox 113 GM Tube 1 APPLIC TOPICAL ×3 (06:48→22:05)
[2023-09-30 07:57] LABS: Absolute Lymphocyte Count 0.83 X10^3/uL (0.83-4.51); Absolute Neutrophil Count 6.8 X10^3/uL (2.0-7.7); Basophil# 0.08 X10^3/uL; Basophil% 0.9 % (0-1); Eosinophils% 4.3 % (0-5); Hematocrit 32.8 % (40-54); Hemoglobin 10.3 g/dL (13.0-16.5); Lymphocyte # 0.83 X10^3/ul (0.83-4.51); Mean Corp Hgb Conc 31.4 g/dL (32-36); Mean Corpuscular Hgb 29.3 pg (27.0-32.0); Mean Corpuscular Volume 93.4 fL (80-94); Monocyte# 1.12 X10^3/uL; Monocyte% 12.1 % (0-10); NRBC Flagged by Analyzer 0 % (0-5); Neutrophil # 6.79 X10^3/uL (2.7-7.7); Neutrophil % 73.3 % (47-70); Platelet Count 255 K/mm3 (150-450); RBC Distribution Width CV 15.3 % (11.6-14.6); RBC Distribution Width SD 52.5 fl (35.1-43.9); Red Blood Count 3.51 M/mm3 (4.6-6.2); White Blood Count 9.3 K/mm3 (4.4-11.0)
[2023-09-30 08:35] LABS: Anion Gap 5 (5-15); BUN 22 mg/dL (7-18); BUN/Creat Ratio 20.2 RATIO (10-20); Calcium,Total 8.7 mg/dL (8.5-10.1); Chloride 108 mmol/L (98-107); Creatinine, Serum 1.09 mg/dL (0.70-1.30); EST Glomerular Filtration Rate 70 mL/min (>60); Est Glom Filt Rate - Afr Amer 85 mL/min (>60); Estimated Creatinine Clearance 63.33 ml/min; Glucose 96 mg/dL (74-106); Potassium 4.3 mmol/L (3.5-5.1); Sodium Level 137 mmol/L (136-145)
[2023-09-30 09:18] VITALS: BP 139/82; PULSE 79; RESP 16; TEMP 36.8; O2SAT 96
[2023-09-30 09:20] LABS: Pathologist Review Reviewed
[2023-09-30] MEDS: amLODIPine 10 MG Tablet PO (09:20)
[2023-09-30] MEDS: Ferrous Sulfate 325 MG Tablet PO ×2 (09:21→16:42)
[2023-09-30] MEDS: buPROPion (XL) 300 MG TABLET.XL PO (09:22)
[2023-09-30] MEDS: Ceftriaxone 1 GM/50 ML BAG IV (09:25)
[2023-09-30 16:25] VITALS: BP 132/79; PULSE 87; RESP 18; TEMP 36.7; O2SAT 98
--- NOTE | 2023-09-30 16:38 | PCM.PN.HOSP ---
Reason for Visit Reason for Visit: Diagnoses Hypo-osmolality and hyponatremia (09/28/23) Acute kidney failure, unspecified (09/28/23) Urinary tract infection, site not specified (09/28/23) Subjective Subjective Patient was seen and examined today, he is much more alert and talkative today, urine culture resulted as Providencia, it is sensitive to Cipro and Augmentin. I have decided to start the patient on Cipro starting tomorrow morning and stop his Rocephin. Patient states that he gets around at home in a wheelchair, he uses a walker for short distances, and he has a caregiver that comes in periodically to help him. Objective Data Objective Data Vital Signs: Vital Signs Temp Pulse Resp BP Pulse Ox O2 Del Method 98.1 F 87 18 132/79 H 98 Room Air 09/30/23 16:25 09/30/23 16:25 09/30/23 16:25 09/30/23 16:25 09/30/23 16:25 09/30/23 16:29 Oxygen Delivery Method Room Air Weight: 96.797 kg Body Mass Index (BMI) 29.7 Intake & Output: Intake and Output for Last 24 Hours 09/28/23 09/29/23 09/30/23 23:59 23:59 23:59 Intake Total 1050 / 1050 2578.33 / 2578.33 2400 / 2400 Output Total 1100 / 1100 3700 / 4200 2049 / 2049 Balance -50 / -50 -1121.67 / -1621.67 350 / 350 Lab / Micro Data 09/30/23 07:05 09/30/23 07:05 Labs: Laboratory Results - last 24 hr 09/28/23 17:35: Diff Path Review Reviewed 09/30/23 07:05: WBC 9.3, RBC 3.51 L, Hgb 10.3 L, Hct 32.8 L, MCV 93.4, MCH 29.3, MCHC 31.4 L, RDW Std Deviation 52.5 H, RDW Coeff of Matthew 15.3 H, Plt Count 255, MPV 10.0, Immature Gran % (Auto) 0.400, Neut % (Auto) 73.3 H, Lymph % (Auto) 9.0 L, [place] % (Auto) 12.1 H, Eos % (Auto) 4.3, Baso % (Auto) 0.9, Absolute Neuts (auto) 6.8, Absolute Lymphs (auto) 0.83, Nucleated RBC % 0, Sodium 137, Potassium 4.3, Chloride 108 H, Carbon Dioxide 24.0, Anion Gap 5, BUN 22 H, Creatinine 1.09, Estim Creat Clear Calc 63.33, Est GFR (MDRD) Af Amer 85, Est GFR (MDRD) Non-Af 70, BUN/Creatinine Ratio 20.2 H, Glucose 96, Calcium 8.7 Micro: Microbiology 09/28/23 17:35 Urine, Catheterized Urine Culture - Final Providencia stuartii Physical Exam Const alert, oriented x3, no apparent distress and average body habitus General Appearance: cooperative, well kempt and well developed Orientation / Consciousness: awake, oriented to person, oriented to place and oriented to time HEENT normocephalic, head/scalp atraumatic and moist oral mucous membranes Eyes PERRL, EOMs intact bilaterally and conjunctivae normal Neck supple, no JVD, thyroid normal and no carotid bruits General: trachea midline Resp normal respiratory effort, no retractions, no use of accessory muscles and clear to auscultation bilaterally Auscultation: Negative for rales, rhonchi or wheezes Cardio regular rate, regular rhythm, S1 normal heart sound, S2 normal heart sound, no murmurs, no rub and no gallops GI normal to inspection, nondistended, normoactive bowel sounds, soft to palpation, non-tender and non-distended Extremity no clubbing, cyanosis or edema Skin no rashes or lesions noted General Skin Exam: no breakdown Neuro oriented x3, CN's II-XII intact bilaterally, moves all extremities, no focal motor deficits and no sensory deficits noted Sensorium / Orientation: awake and alert Speech: speech normal Psych affect normal Assessment & Plan Assessment/Plan (1) Acute UTI: PLAN: Plan 1. Acute cystitis with Providencia-Rocephin will be discontinued and the patient will be placed on Cipro starting tomorrow. #2 hyponatremia-I have elected to stop the patient's IV fluids at this time #3 acute urinary retention secondary to BPH-patient's Flomax will be increased 0.8 mg daily #4 essential hypertension-patient will remain on Norvasc #5 chronic depression-patient is on Wellbutrin #6 iron deficiency anemia-patient is on ferrous sulfate Total clinical time spent by myself addressing the patient's medical issues, reviewing all of his data, and collaborating with patient's care team: 35 minutes Charges/Coding Visit Charges Inpatient E&M: 18474 Subs Hosp L2
[2023-09-30] MEDS: 0.9% Saline Lock 10 ML Syringe IV (16:47)
[2023-09-30 19:50] VITALS: BP 135/88; PULSE 82; RESP 16; TEMP 36.6; O2SAT 97
[2023-09-30] MEDS: Tamsulosin HCl 0.4 MG Capsule 0.8 MG PO (22:04)
[2023-09-30] MEDS: MELATONIN 10 MG TABLET 5 MG PO (22:04)
[2023-09-30] MEDS: Miconazole Nitrate 43 GM Bottle 1 APPLIC TOPICAL (22:05)
[2023-09-30] MEDS: traZODone 50 MG Tablet PO (22:05)
[2023-10-01 02:22] VITALS: BP 128/77; PULSE 80; RESP 16; TEMP 37.1; O2SAT 95
[2023-10-01] MEDS: Acetaminophen 325 MG Tablet 650 MG PO (02:28)
[2023-10-01] MEDS: Menthol/Lanolin/Calamine/Znox 113 GM Tube 1 APPLIC TOPICAL (05:31)
[2023-10-01] MEDS: Gabapentin 600 MG Tablet PO (05:31)
[2023-10-01 10:28] VITALS: BP 129/93; PULSE 96; RESP 18; TEMP 36.2; O2SAT 95
[2023-10-01] MEDS: Ferrous Sulfate 325 MG Tablet PO (10:30)
[2023-10-01] MEDS: buPROPion (XL) 300 MG TABLET.XL PO (10:30)
[2023-10-01] MEDS: amLODIPine 10 MG Tablet PO (10:30)
[2023-10-01] MEDS: Ciprofloxacin 500 MG Tablet PO (10:33)
--- NOTE | 2023-10-01 10:54 | CASEMGMT ---
Addendum entered by Noreen Angelo 10/01/23 12:38: Updated pt that the taxi is unable to take his belongings out of the car for him. Gave him pricing for physicians, pt states he cannot afford. Pt states he will try to call his commercial real estate appraiser and see if he is available. Asked pt to put on his call light when it is known what transportation he will use. Addendum entered by Noreen Angelo 10/01/23 11:56: IMMANUEL HOWE into pt room, pt aware the van cannot take him home. He states he has a credit card for a taxi but he will need the w/c put in the trunk and then gotten back out for him. Pt denies any other person available to take him home. Original Note: Pt will need transportation home, t/c to [facility] van, spoke with Juany she will check and call IMMANUEL HOWE back with any availability.
--- NOTE | 2023-10-01 11:23 | PCM.DC.SUM ---
Providers Date of Admission: 09/28/23 Date of Discharge: 10/01/23 Primary Care Physician: AMANDO Robbins Reason For Visit: ACUTE CYSTITIS WITH ACUTE KIDNEY INJURY WITH Diagnosis Discharge Diagnosis (1) Acute UTI: Status: Acute Code(s): N39.0 - Urinary tract infection, site not specified Plan 1. Acute cystitis with Providencia-Rocephin will be discontinued and the patient will be placed on Cipro starting tomorrow. #2 hyponatremia-I have elected to stop the patient's IV fluids at this time #3 acute urinary retention secondary to BPH-patient's Flomax will be increased 0.8 mg daily #4 essential hypertension-patient will remain on Norvasc #5 chronic depression-patient is on Wellbutrin #6 iron deficiency anemia-patient is on ferrous sulfate #7 acute kidney injury Total clinical time spent by myself addressing the patient's medical issues, reviewing all of his data, and collaborating with patient's care team: 35 minutes Medications at Discharge Home Medications amlodipine 10 mg tablet 10 mg PO DAILY BLOOD PRESSURE 10/28/20 gabapentin 300 mg capsule 600 mg PO TID NEUROPATHY 03/29/22 tamsulosin 0.4 mg capsule 0.4 mg PO QHS PROSTATE 03/11/23 bupropion HCl 300 mg 24 hr tablet, extended release 300 mg PO DAILY DEPRESSION 09/28/23 ferrous sulfate 325 mg (65 mg iron) tablet (FeroSul) 325 mg PO BIDCM SUPPLEMENT 09/28/23 lisinopril 20 mg tablet 20 mg PO DAILY BLOOD PRESSURE 09/28/23 melatonin 5 mg tablet 5 mg PO QHS SLEEP 09/28/23 trazodone 50 mg tablet 50 mg PO QHS SLEEP 09/28/23 ciprofloxacin HCl 500 mg tablet 500 mg PO BID #10 tabs 10/01/23 Hospital Course Operations None Procedures None Summary of Care Provided Minutes Spent on Discharge: 31 Hospital Course: This 73-year-old white male was seen in the emergency room at [facility] with complaints of hematuria and dysuria over 4 days. Patient has had a history of frequent urinary tract infections. Work-up in the emergency room included labs which showed an elevated white blood cell count, hemoglobin of 11.4, sodium of 124, creatinine of 1.96 and BUN of 42. Urinalysis showed positive nitrites and over 100 white blood cells. Patient had a Dowling inserted and he was admitted to [place] [address] and given IV antibiotics, he was also given IV fluids. His labs were monitored and his sodium and creatinine normalized. Patient's urine culture grew out procidentia which was susceptible to many antibiotics. On 10/01/2023, patient was seen and examined: On examination he appeared in good health and spirits. Vital signs as documented. Skin warm and dry and without overt rashes. Neck without JVD, neck was supple, trachea midline, thyroid was normal. Lungs clear bilaterally, normal air movement was noted. Heart exam notable for regular rhythm, normal sounds and absence of murmurs, rubs or gallops. Abdomen unremarkable and without evidence of organomegaly, masses, or abdominal aortic enlargement. Bowel sounds are present, abdomen is not distended. Extremities nonedematous, no cyanosis was noted, no clubbing was noted. Neuro: Cranial nerves II through XII are grossly intact, no focal motor deficits were noted, sensation to light touch and pinprick intact, motor exam 5/5 throughout. Psych: Patient is alert and oriented x3, he does not appear anxious or depressed, he does not appear agitated. On 10/01/2023, patient was seen and examined and felt to be stable for discharge home, his Dowling catheter was removed prior to discharge. Weight / BMI Weight Weight: 96.797 kg Body Mass Index (BMI) 29.7 ABG / Lab / Microbiology Data 09/30/23 07:05 09/30/23 07:05 Microbiology: Microbiology 09/28/23 17:35 Urine, Catheterized Urine Culture - Final Providencia stuartii Meaningful Use Info Meaningful Use Diagnoses (Choose all that apply): None applicable Discharge Plan Admission Admit Date/Time: 09/28/23 20:28 Primary Reason for Your Visit: urinary tract infection Attending Provider: Rich Mcdaniels Primary Care Provider: Marbella Zaidi Consulting Providers: Damaso Payne Discharge Orders/Prescriptions Prescriptions: New ciprofloxacin HCl 500 mg Tablet 500 mg PO BID Qty: 10 0RF Continued amlodipine 10 mg tablet 10 mg PO DAILY gabapentin 300 mg capsule 600 mg PO TID tamsulosin 0.4 mg capsule 0.4 mg PO QHS trazodone 50 mg tablet 50 mg PO QHS lisinopril 20 mg tablet 20 mg PO DAILY ferrous sulfate [FeroSul] 325 mg (65 mg iron) tablet 325 mg PO BIDCM bupropion HCl 300 mg tablet extended release 24 hr 300 mg PO DAILY melatonin 5 mg tablet 5 mg PO QHS Referrals / Follow Up: Marbella Zaidi, PA [Primary Care Provider] - Within 2 Weeks Disposition Disposition (needs filled in before D/C Order can be placed): Home, Self Care Charges/Coding Visit Charges Inpatient E&M: 87929 Disch Hosp >30min
--- NOTE | 2023-10-01 11:24 | DCINST_ITS ---
Discharge Instructions Diet Discharge Diet: No restrictions Activity Discharge Activity: Return to Normal Activity Weight Bearing Status: Full weight bearing Follow Up Care Test Results: Test results from this visit will be discussed in further detail at your follow- up appointment, if applicable. Discharge Plan Admission Admit Date/Time: 09/28/23 20:28 Primary Reason for Your Visit: urinary tract infection Attending Provider: Rich Mcdaniels Primary Care Provider: Marbella Zaidi Consulting Providers: Damaso Payne Discharge Orders/Prescriptions Prescriptions: New ciprofloxacin HCl 500 mg Tablet 500 mg PO BID Qty: 10 0RF Continued amlodipine 10 mg tablet 10 mg PO DAILY gabapentin 300 mg capsule 600 mg PO TID tamsulosin 0.4 mg capsule 0.4 mg PO QHS trazodone 50 mg tablet 50 mg PO QHS lisinopril 20 mg tablet 20 mg PO DAILY ferrous sulfate [FeroSul] 325 mg (65 mg iron) tablet 325 mg PO BIDCM bupropion HCl 300 mg tablet extended release 24 hr 300 mg PO DAILY melatonin 5 mg tablet 5 mg PO QHS Referrals / Follow Up: Marbella Zaidi PA [Primary Care Provider] - Within 2 Weeks Disposition Disposition (needs filled in before D/C Order can be placed): Home, Self Care
--- NOTE | 2023-10-01 11:29 | PCM.DC.SUM ---
Providers Date of Admission: 09/28/23 Date of Discharge: 10/01/23 Primary Care Physician: AMANDO Robbins Reason For Visit: ACUTE CYSTITIS WITH ACUTE KIDNEY INJURY WITH Diagnosis Discharge Diagnosis (1) Acute UTI: Status: Acute Code(s): N39.0 - Urinary tract infection, site not specified Plan 1. Acute cystitis with Providencia-Rocephin will be discontinued and the patient will be placed on Cipro starting tomorrow. #2 hyponatremia-I have elected to stop the patient's IV fluids at this time #3 acute urinary retention secondary to BPH-patient's Flomax will be increased 0.8 mg daily #4 essential hypertension-patient will remain on Norvasc #5 chronic depression-patient is on Wellbutrin #6 iron deficiency anemia-patient is on ferrous sulfate Total clinical time spent by myself addressing the patient's medical issues, reviewing all of his data, and collaborating with patient's care team: 35 minutes Medications at Discharge Home Medications amlodipine 10 mg tablet 10 mg PO DAILY BLOOD PRESSURE 10/28/20 gabapentin 300 mg capsule 600 mg PO TID NEUROPATHY 03/29/22 tamsulosin 0.4 mg capsule 0.4 mg PO QHS PROSTATE 03/11/23 bupropion HCl 300 mg 24 hr tablet, extended release 300 mg PO DAILY DEPRESSION 09/28/23 ferrous sulfate 325 mg (65 mg iron) tablet (FeroSul) 325 mg PO BIDCM SUPPLEMENT 09/28/23 lisinopril 20 mg tablet 20 mg PO DAILY BLOOD PRESSURE 09/28/23 melatonin 5 mg tablet 5 mg PO QHS SLEEP 09/28/23 trazodone 50 mg tablet 50 mg PO QHS SLEEP 09/28/23 ciprofloxacin HCl 500 mg tablet 500 mg PO BID #10 tabs 10/01/23 Weight / BMI Weight Weight: 96.797 kg Body Mass Index (BMI) 29.7 ABG / Lab / Microbiology Data 09/30/23 07:05 09/30/23 07:05 Microbiology: Microbiology 09/28/23 17:35 Urine, Catheterized Urine Culture - Final Providencia stuartii D/C Instructions Discharge Diet: No restrictions Weight Bearing Status: Full weight bearing Discharge Plan Admission Admit Date/Time: 09/28/23 20:28 Primary Reason for Your Visit: urinary tract infection Attending Provider: Rich Mcdaniels Primary Care Provider: Marbella Zaidi Consulting Providers: Damaso Payne Discharge Orders/Prescriptions Prescriptions: New ciprofloxacin HCl 500 mg Tablet 500 mg PO BID Qty: 10 0RF Continued amlodipine 10 mg tablet 10 mg PO DAILY gabapentin 300 mg capsule 600 mg PO TID tamsulosin 0.4 mg capsule 0.4 mg PO QHS trazodone 50 mg tablet 50 mg PO QHS lisinopril 20 mg tablet 20 mg PO DAILY ferrous sulfate [FeroSul] 325 mg (65 mg iron) tablet 325 mg PO BIDCM bupropion HCl 300 mg tablet extended release 24 hr 300 mg PO DAILY melatonin 5 mg tablet 5 mg PO QHS Referrals / Follow Up: Marbella Zaidi, PA [Primary Care Provider] - Within 2 Weeks Disposition Disposition (needs filled in before D/C Order can be placed): Home, Self Care
--- NOTE | 2023-10-01 11:40 | PHA.DC_ITS ---
Pharmacy [facility] Service has performed discharge medication reconciliation and counseling for this patient. The patient's discharge medication list was reviewed for discrepancies and discrepancies were resolved. The patient was counseled on the following discharge medications and changes in medications for homegoing were reviewed. The Reason for Use, instructions for use, and potential side effects were reviewed for all new medications. The patient's questions regarding all of their medications were answered. 1. Ciprofloxacin 500 mg PO BID x 5 days The patient was able to verbally demonstrate an understanding of their discharge medications. Medications at Discharge Home Medications amlodipine 10 mg tablet 10 mg PO DAILY BLOOD PRESSURE 10/28/20 gabapentin 300 mg capsule 600 mg PO TID NEUROPATHY 03/29/22 tamsulosin 0.4 mg capsule 0.4 mg PO QHS PROSTATE 03/11/23 bupropion HCl 300 mg 24 hr tablet, extended release 300 mg PO DAILY DEPRESSION 09/28/23 ferrous sulfate 325 mg (65 mg iron) tablet (FeroSul) 325 mg PO BIDCM SUPPLEMENT 09/28/23 lisinopril 20 mg tablet 20 mg PO DAILY BLOOD PRESSURE 09/28/23 melatonin 5 mg tablet 5 mg PO QHS SLEEP 09/28/23 trazodone 50 mg tablet 50 mg PO QHS SLEEP 09/28/23 ciprofloxacin HCl 500 mg tablet 500 mg PO BID #10 tabs 10/01/23
== END 2023-10-01 13:47 | disposition home or self-care (01) | DRG 690 ==
LOC: ED 18:07 → MS3 20:33
PROVIDERS: Physician Assistant; Admitting Provider Internal Medicine; Emergency Provider Student in an Organized Health Care Education/Training Program; PCP Physician Assistant; Visit Provider Internal Medicine
DX: N30.00 Acute cystitis without hematuria (principal); E87.1 Hypo-osmolality and hyponatremia; N17.9 Acute kidney failure, unspecified; I10 Essential (primary) hypertension; D50.9 Iron deficiency anemia, unspecified; F32.A Depression, unspecified; M19.90 Unspecified osteoarthritis, unspecified site; F41.9 Anxiety disorder, unspecified; Z87.891 Personal history of nicotine dependence; N40.1 Benign prostatic hyperplasia with lower urinary tract symptoms; R33.8 Other retention of urine
CPT/HCPCS: 36415; 51702; 74176; 80048; 81001; 85025; 87077; 87086; 87088; 87186; 97162; 97166; 99285; J7030; J7040; A4216; J2405

== ENCOUNTER 2023-12-17 15:00 | Outpatient (RCR) | payer MEDICARE, SELFPAY ==
--- NOTE | 2023-08-25 12:24 | HP.PTEVAL ---
Patient's Visit Information Visit Information Visit Information: MIROSLAVA PALACIO is a 72 year old M referred to Physical Therapy by AMANDO Robbins with a diagnosis of DDD, Paresthesia, Right THR, s/p Laminectomy,. Date of Evaluation: 08/25/23 Physical Therapist: Deann Cruz DPT Visit Plan Frequency: 3x /Week Duration: 4 Weeks Plan: Focus on proprioception, LE and core strength/stabilization and functional mobility Gait Belt HEP Given IE: reviewed current exercises for home health and encouraged walker use and AFO for fall prevention Subjective Subjective: Started with spinal surgery about a year and a half ago due to numbness in both feet- he went back to the gym doing okay for a couple weeks then he fell in the shower due to the drop foot on the right- broke his right femur about a year ago- since then 3 surgeries- due to hip popping out- including having COVID which kicked his butt. The most recent surgery was 5-6 months ago- the hip has been good since the last surgery. He wears an AFO on the right side all the time. Now his doctor wants him in therapy to work on balance, strength and endurance. He lives alone in an apartment with an elevator- he has a tub shower with a seat- he is able to do all of his ADL's- he does not drive- he has someone that comes every 2 weeks to help with cooking and cleaning. He did have home health PT/OT that was coming but its been 3 weeks- he has been doing his exercises since they left walking and squats- he says he semi compliant. He is not getting outside to walk just in his apartment. The last fall was about a month and a half ago- that was his only fall. He has pain all over- mostly in his right hip and back. Most of the time its a 4/10. Eases: going to bed so he is in bed a lot. Best: 12/01. Worst: 07/01 Agg: moving around. Numb from the waist down and bilateral hands. Describes the pain as dull and achy and sharp and shooting. He likes to play on his phone and watch TV so he is more sedentary. He does not have bowel and bladder control. 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 Work: not working. Does have an apt to return to [place]. Has had recent x-rays. Does not see pain mgmt- he is on medication for pain. Sleep: not disturbed. After surgeries went to [facility] for rehab then went home and had PT/OT at home and now have sent him to outpatient PT/OT. Goals: walk and drive his car. PMHx/Meds: will bring a list next visit Objective Objective: Posture: forward head, rounded shoulder, inc kyphosis- he can correct but does not maintain- sitting on the plinth while taking subjective patient chose to lay down/recline 2-3x due to discomfort in the right hip/lumbar spine Gait: antalgic- FWW- AFO on the right lower extremity- circumduction on the right- hip drop- and poor endurance HR/TR able on the left LE but unable on the right SLS: unable- see balance score on the CATSIB- will weight shift Strength: Core: poor, Hip: Left: 4+/5 throughout Right: 4/5 throughout, Knee: 4+/5 throughout bilateral Left: Ankle: 4+/5 Right: 2/5 (Wears AFO) Sensation: diminished bilateral- right has no sensation to gross touch Transfers: sit to stand: requires UE A bilateral Balance/Special Test Scores CATSIB Score (Max score 120 seconds): 5 Lower Extremity Functional Score: 24 TUG Test Time Seconds: 37 30 Second Chair Rise Test Seconds: 19 Goals Goal 1:: Patient will report participation in home exercise program activities a minimum of 5 days per week, as adjunct to skilled physical therapy intervention in preparation for independent home management upon discharge. Goal Time Frame: 4-6 Weeks Goal 2:: Patient will decreasing his TUG test to less than 20 seconds with least restrictive device to demonstrate improved balance and increase safety with ADL's Goal Time Frame: 4-6 Weeks Goal 3:: Patient will stand on even surface with eyes open without loss of balance for 15 seconds to demonstrate improved balance and increase safety with ADL's Goal Time Frame: 4-6 Weeks Goal 4:: Patient will perform a sit to stand from chair without use of upper extremity x1 repetition to demonstrate increase LE functional strength and ease community mobility. Goal Time Frame: 2 Weeks Goal 5:: Patient will report an increase of 9 points on the LEFS to show minimal clinical significant difference on patients functional outcome measure. Rehabilitation Potential Physical Therapy Diagnosis: Patient presents with hypomobility- he has decreased LE and core strength/stabilization, flex, proprioception and muscular endurance leading to abnormal gait pattern, poor balance and decreased functional mobility Rehabilitation Potential: Fair Anticipated Interventions Patient/Client Instruction: Educate patient on: Benefits of Fitness Program For the Purpose of:: To improve muscle performance and motor function Therapeutic Exercise to Include: Strength training, Endurance training, Balance training, Coordination, Agility training, Body mechanics, Postural training, Flexibilty training, Gait and locomotor training, Neuromotor development, Dynamic Lumbar Stabilization and Scapular Strength/Stabilization For the Purpose of:: To improve muscle performance and motor function Cryotherapy (ice pack, ice massage): Yes Thermo therapy (hot pack): Yes For the Purpose of:: To decrease pain Text: Thank you for the opportunity to evaluate your patient. For Medicare and Medicare HMO plans, please review the plan of care and approve it. It will need to be FAXED BACK to us at [phone] for Medicare purposes. For Medicare only, by signing this I certify the plan of care. Please let me know if there are questions or concerns regarding this plan of care. Physician Signature: Date:
--- NOTE | 2023-11-29 14:27 | HP.PTREVAL ---
Re-Evaluation Intro: AMANDO Robbins, It has been my pleasure to treat MIROSLAVA PALACOI over the last 10 visits for DDD, Paresthesia, Right THR, s/p Laminectomy. Please see the progress note below for an update on the physical therapy plan of care! Subjective Subjective: Patient reports that he has been in the hospital for a urinary tract infection and he has had a hard time getting going. He is having an MRI on Wednesday for his upper and lower spine- they were ordered by his hip doctor. He reports that both of his legs are heavy and his hands are numb. He feels that right leg is worse than the left due to the drop foot but they feel about the same. He reports that he is not moving a lot- he is only doing 3 walks a day- he is laying in bed most of the day. 50% of the time he is walking around the apt and 50% of the time he is using the w/c to get around his apt. He is using the w/c to get his laundry up/down. He has a friend take him to do his grocery shopping. He does not have anyone that comes into to help him with stuff. He has dizziness that is there most of the time. He sits in the shower due to safety. He uses the hospital van for transportation. Normal basis pain is a 2-3/10. There is really nothing he can do to decrease his pain. He does not feel like his hip and back surgeries helped a lot. He does not have any more restrictions from his MD. 4/10 sitting on the plinth. He reports having a hard time sitting up tall. Objective Objective/Function: Objective: Posture: forward head, rounded shoulder, inc kyphosis- he can correct but does not maintain. Gait: antalgic- FWW- AFO on the right lower extremity- stand by assist for safety- right lower extremity was buckling throughout. Stairs: asc/desc 8 SBA for safety bilateral HR HR/TR able on the left LE but unable on the right SLS: unable- see balance score on the CATSIB- will weight shift Strength: Core: poor, Hip: Left: 4-/5 throughout Right: 4-/5 throughout, Knee: 4+/5 throughout bilateral Left: Ankle: 4+/5 Right: 2/5 (Wears AFO) Sensation: diminished bilateral- right has no sensation to gross touch Transfers: sit to stand: requires UE A bilateral and POOR control with descent Plan Plan Plan: Focus on proprioception, LE and core strength/stabilization and functional mobility. Gait Belt. Balance/Gait/Functional tests Balance/Special Test Scores Functional Gait Assessment Score: 10 % Disability: 66.6700 CATSIB Score (Max score 120 seconds): 3 Lower Extremity Functional Score: 6 TUG Test Time Seconds: 28 Tug Test: 20-30sec.=variable mobility 30 Second Chair Rise Test Seconds: 10 Goals Goals Goal 1:: Patient will report participation in home exercise program activities a minimum of 5 days per week, as adjunct to skilled physical therapy intervention in preparation for independent home management upon discharge. Goal Time Frame: 4-6 Weeks Goal Progress: Not Progressing Goal 2:: Patient will decreasing his TUG test to less than 20 seconds with least restrictive device to demonstrate improved balance and increase safety with ADL's Goal Time Frame: 4-6 Weeks Goal Progress: Not Progressing Goal 3:: Patient will stand on even surface with eyes open without loss of balance for 15 seconds to demonstrate improved balance and increase safety with ADL's Goal Time Frame: 4-6 Weeks Goal Progress: Not Progressing Goal 4:: Patient will perform a sit to stand from chair without use of upper extremity x1 repetition to demonstrate increase LE functional strength and ease community mobility. Goal Time Frame: 2 Weeks Goal Progress: Not Progressing Goal 5:: Patient will report an increase of 9 points on the LEFS to show minimal clinical significant difference on patients functional outcome measure. Goal Progress: Not Progressing Anticipated Interventions Anticipated Interventions Patient/Client Instruction: Educate patient on: Benefits of Fitness Program For the Purpose of:: To improve muscle performance and motor function Therapeutic Exercise to Include: Strength training, Endurance training, Balance training, Coordination, Agility training, Body mechanics, Postural training, Flexibilty training, Gait and locomotor training, Neuromotor development, Dynamic Lumbar Stabilization and Scapular Strength/Stabilization For the Purpose of:: To improve muscle performance and motor function Cryotherapy (ice pack, ice massage): Yes Thermo therapy (hot pack): Yes For the Purpose of:: To decrease pain Re-Evaluation Ending Re-evaluation ending: Please do not hesitate to contact me at [phone] by phone or if you have questions or concerns regarding this new plan of care! Sincerely, LETI PisanoT
--- NOTE | 2023-12-17 16:00 | HP.PTREVAL ---
Re-Evaluation Intro: AMANDO Robbins, It has been my pleasure to treat MIROLSAVA PALACIO over the last 12 visits for DDD, Paresthesia, Right THR, s/p Laminectomy. Please see the progress note below for an update on the physical therapy plan of care! Subjective Subjective: I feel like I was getting better until my UTI, Objective Objective/Function: TU.69 sec Pt is able to sit to stand but must use his UE's for support Pt is able to stand for 10 sec until experiencing a LOB and holding on to therapist Pt is able to ambulate 140 feet until needing to rest secondary to fatigue. Pt is very limited with ambulation and transfers at this time. Pt is very unsteady with gait at this time. Plan Plan Plan: Focus on proprioception, LE and core strength/stabilization and functional mobility. Gait Belt. Balance/Gait/Functional tests Balance/Special Test Scores Functional Gait Assessment Score: 10 % Disability: 66.6700 CATSIB Score (Max score 120 seconds): 3 Lower Extremity Functional Score: 15 TUG Test Time Seconds: 28 Tug Test: 20-30sec.=variable mobility 30 Second Chair Rise Test Seconds: 10 Goals Goals Goal 1:: Patient will report participation in home exercise program activities a minimum of 5 days per week, as adjunct to skilled physical therapy intervention in preparation for independent home management upon discharge. Goal Time Frame: 4-6 Weeks Goal Progress: Not observed Goal 2:: Patient will decreasing his TUG test to less than 20 seconds with least restrictive device to demonstrate improved balance and increase safety with ADL's Goal Time Frame: 4-6 Weeks Goal Progress: Progressing Goal 3:: Patient will stand on even surface with eyes open without loss of balance for 15 seconds to demonstrate improved balance and increase safety with ADL's Goal Time Frame: 4-6 Weeks Goal Progress: Progressing Goal 4:: Patient will perform a sit to stand from chair without use of upper extremity x1 repetition to demonstrate increase LE functional strength and ease community mobility. Goal Time Frame: 4-6 Weeks Goal Progress: Progressing Goal 5:: Patient will report an increase of 9 points on the LEFS to show minimal clinical significant difference on patients functional outcome measure. Goal Progress: Progressing Anticipated Interventions Anticipated Interventions Patient/Client Instruction: Educate patient on: Benefits of Fitness Program For the Purpose of:: To improve muscle performance and motor function Therapeutic Exercise to Include: Strength training, Endurance training, Balance training, Coordination, Agility training, Body mechanics, Postural training, Flexibilty training, Gait and locomotor training, Neuromotor development, Dynamic Lumbar Stabilization and Scapular Strength/Stabilization For the Purpose of:: To improve muscle performance and motor function Cryotherapy (ice pack, ice massage): Yes Thermo therapy (hot pack): Yes For the Purpose of:: To decrease pain Re-Evaluation Ending Re-evaluation ending: Please do not hesitate to contact me at [phone] by phone or if you have questions or concerns regarding this new plan of care! Sincerely, Luis Rosales, PT, ATC
--- NOTE | 2024-02-28 11:27 | HP.PT.NRP ---
Patient Information Patient Information: MIROSLAVA PALACIO was seen in my office for initial evaluation on 08/25/23. The following Plan of Care was established for this patient: POC Established Initial Frequency: 3x /Week Initial Duration: 4 Weeks Anticipated Interventions Patient/Client Instruction: Educate patient on: Benefits of Fitness Program For the Purpose of:: To improve muscle performance and motor function Therapeutic Exercise to Include: Strength training, Endurance training, Balance training, Coordination, Agility training, Body mechanics, Postural training, Flexibilty training, Gait and locomotor training, Neuromotor development, Dynamic Lumbar Stabilization and Scapular Strength/Stabilization For the Purpose of:: To improve muscle performance and motor function Cryotherapy (ice pack, ice massage): Yes Thermo therapy (hot pack): Yes For the Purpose of:: To decrease pain Last Seen Last Seen: This patient was last seen in our office . Pertinent comments regarding their Physical therapy will appear below: Pt in hospital- appropriate to be d/c from outpatient At this point I will be discontinuing this patient from physical therapy. I would be happy to see this patient again in the future if found appropriate by the physician. Thank you! Deann Cruz, LETIT Balance/Gait/Functional tests Balance/Special Test Scores Functional Gait Assessment Score: 10 % Disability: 66.6700 CATSIB Score (Max score 120 seconds): 3 Lower Extremity Functional Score: 15 TUG Test Time Seconds: 28 Tug Test: 20-30sec.=variable mobility 30 Second Chair Rise Test Seconds: 10
== END 2023-12-17 19:00 | disposition home or self-care (01) ==
LOC: PT 15:00
PROVIDERS: PCP Physician Assistant; Referring Provider Physician Assistant; Visit Provider Physician Assistant
DX: M51.36 Other intervertebral disc degeneration, lumbar region (principal); R20.2 Paresthesia of skin; Z96.611 Presence of right artificial shoulder joint; Z96.641 Presence of right artificial hip joint; Z98.890 Other specified postprocedural states
CPT/HCPCS: 97110; 97162; 97164

== ENCOUNTER 2024-01-09 11:33 | Inpatient (IN) | payer MEDICARE, SELFPAY ==
[2024-01-09 11:35] VITALS: BP 110/60; PULSE 92; RESP 18; TEMP 36; O2SAT 94; BMI 30.4
--- NOTE | 2024-01-09 11:54 | RAD_ITS ---
STUDY: X-RAY CHEST REASON FOR EXAM: Male, 73 years old. cough TECHNIQUE: PA and lateral views of the chest. COMPARISON: January 07, 2023 FINDINGS: No consolidation or active pulmonary edema is present. There are interstitial fibrotic changes of the lungs. There is no demonstrated pleural abnormality. Normal size heart. Normal mediastinum and dong. Normal visualized pulmonary arteries. There is atherosclerotic tortuosity of the aortic arch and descending thoracic aorta. There are diffuse degenerative changes of the visualized thoracic spine. Stable right shoulder prosthesis. There is no demonstrated abnormality of the visualized soft tissue structures of the upper abdomen. RAD/Chest PA and Lateral IMPRESSION: Degenerative changes, as described above. No demonstrated acute cardiopulmonary process. Electronically Signed: Michael Ayala MD at 12:49 EST ,
--- NOTE | 2024-01-09 11:56 | EDS_ITS ---
HPI <AMANDO Saavedra - Last Filed: 01/09/24 13:27> History of Present Illness Chief Complaint: Weakness Narrative Narrative: 73-year-old male with PMH of HTN, self-catheterization states his follow-up weak over the last couple days. He started having 1-2 episodes of loose stools per day and is crap in the bed. He started self catheterizing 1.5 weeks ago due to retention and is worried about a UTI because he is not very clean. He normally does not ambulate independently due to neuropathy but gets around his home in a wheelchair and can get himself on and off the commode. The last 2 days he has not been getting out of bed. He has vomited once when taking his medications. He has no chest pains, shortness of breath, or abdominal pain. No fever or chills. He has had a mild cough this week. He lives alone and called EMS to bring him in today. PFSH <AMANDO Saavedra - Last Filed: 01/09/24 13:27> [facility] Medical History (Updated 01/09/24 @ 13:[address] Yolanda Hammonds, ) Anxiety Anxiety Depression Essential (primary) hypertension GERD (gastroesophageal reflux disease) Hepatitis A History of fractured rib (08/12/20) Hypertension Osteoarthritis Right femoral fracture Vision loss of right eye Home Medications amlodipine 10 mg tablet 10 mg PO DAILY BLOOD PRESSURE 10/28/20 [History Last T aken 01/08/24] gabapentin 300 mg capsule 600 mg PO TID NEUROPATHY 03/29/22 [History Last Taken 01/08/24] tamsulosin 0.4 mg capsule 0.4 mg PO QHS PROSTATE 03/11/23 [History Last Taken 01/08/24] bupropion HCl 300 mg 24 hr tablet, extended release 300 mg PO DAILY DEPRESSION 09/28/23 [History Last Taken 01/08/24] ferrous sulfate 325 mg (65 mg iron) tablet (FeroSul) 325 mg PO BIDCM SUPPLEMENT 09/28/23 [History Last Taken 01/08/24] lisinopril 20 mg tablet 20 mg PO DAILY BLOOD PRESSURE 09/28/23 [History Last Taken 01/08/24] melatonin 5 mg tablet 5 mg PO QHS SLEEP 09/28/23 [History Last Taken 01/08/24] trazodone 50 mg tablet 50 mg PO QHS SLEEP 09/28/23 [History Last Taken 01/08/24] meclizine 12.5 mg tablet 12.5 mg PO TID 01/09/24 [History Last Taken Unknown] Allergy/AdvReac Type Severity Reaction Status Date / Time diltiazem [From Cardizem] AdvReac unknown Verified 01/09/24 11:35 losartan [From Hyzaar] AdvReac unknown Verified 01/09/24 11:35 metoprolol [From Lopressor] AdvReac unknown Verified 01/09/24 11:35 valsartan [From Diovan] AdvReac unknown Verified 01/09/24 11:35 Family History Mother Heart disease Cancer breast Sister Heart disease Surgical History History of elbow surgery History of hip replacement History of lumbar laminectomy for spinal cord decompression History of shoulder surgery Social History Smoking Status: Former smoker quit date: 11/22/92 pack-years: 46 alcohol intake: former year quit: 1991 ROS <AMANDO Saavedra - Last Filed: 01/09/24 13:27> ROS ED ROS Narrative Constitutional: Negative for fever, chills. CVS: Negative for chest pain. Respiratory: Negative for shortness of breath. GI: Positive for vomiting, diarrhea. Negative for abdominal pain, melena, hematochezia. : Positive for dysuria. EXAM <AMANDO Saavedra - Last Filed: 01/09/24 13:27> Physical Exam Narrative Exam Narrative: CONST: Patient sitting in no acute distress. EYES: Normal inspection. NECK: Normal inspection. RESP: No respiratory distress, CTAB. CVS: Regular rate and rhythm, no murmur, no gallop. ABD: Soft and nontender, no guarding or rebound, nondistended. SKIN: Color normal, no rash, warm, dry, intact. EXTREMITIES: Normal appearance, no pedal edema. NEURO: Oriented x4. PSYCH: Normal affect. Const Vital Signs: 01/09/24 11:35 01/09/24 11:39 01/09/24 11:39 Temperature 96.8 F L Temperature Source Temporal Pulse Rate 92 Respiratory Rate 18 Respiratory Effort Normal Non-Labored Normal Non-Labored Respiratory Depth Normal Respiratory Pattern Normal Normal Blood Pressure 110/60 Blood Pressure Mean 76 Pulse Ox 94 Oxygen Delivery Method Room Air <Dr. Yolanda Hammonds DO - Last Filed: 01/09/24 13:17> Physical Exam Const Vital Signs: 01/09/24 11:35 01/09/24 11:39 01/09/24 11:39 Temperature 96.8 F L Temperature Source Temporal Pulse Rate 92 Respiratory Rate 18 Respiratory Effort Normal Non-Labored Normal Non-Labored Respiratory Depth Normal Respiratory Pattern Normal Normal Blood Pressure 110/60 Blood Pressure Mean 76 Pulse Ox 94 Oxygen Delivery Method Room Air MDM <AMANDO Saavedra - Last Filed: 01/09/24 13:27> [facility] Narrative Medical decision making narrative: Differential: UTI, viral illness, pneumonia among others Patient has generalized weakness over the last 5 days was having a hard time getting out of bed. He is having looser stools for about 2 days. He self catheterizes and notes dysuria. He appears ill but nontoxic. Afebrile with normal vital signs. His exam is benign. He has no abdominal or flank pain. Labs show white count of 16.6, acute kidney injury with BUN 43, creatinine 2.40, and UTI. He was treated with IV fluids and Rocephin. CXR is negative and COVID/flu/RSV swab also negative. Case will be discussed with the hospitalist for admission. I have personally performed a face to face assessment of the patient and have reviewed the INOCENCIO Note. I performed a substantive portion of the visit including all aspects of the following. My mcdaniels findings include: History is [patient presents to the emergency department complaint generalized weakness x 5 or 6 days. Having a hard time getting out of bed and caring for self. He called EMS today. Patient has had some watery stools for about 2 days. He also self caths and has had some burning with urination. He gets your frequent urinary tract infections. He had 1 episode of vomiting after trying to take some of his medications. Denies significant cough or fever or sore throat.] Exam is [HEENT-PERRLA, EOMI. Cranial nerves II through XII grossly intact. TMs clear. Mucous membranes moist. No adenopathy. Cardiovascular-regular rate and rhythm without murmur or ectopy Lungs-clear to auscultation, chest wall stable without crepitus or subcu emphysema Abdomen-normoactive bowel sounds, soft, nontender, no rebound or rigidity, no peritoneal signs. Extremities-intact ?4, normal range of motion, normal pulses, atraumatic] Medical Decison Making [patient presents with generalized weakness. Will obtain basic lab workup and urinalysis as well as COVID and flu and RSV testing.] Other additions or changes: [None] Lab Data Attestation: I reviewed the patient's lab results. Labs: Laboratory Results - last 24 hr 01/09/24 01/09/24 01/09/24 12:10 12:30 12:46 WBC 16.6 H RBC 3.45 L Hgb 9.9 L Hct 30.9 L MCV 89.6 MCH 28.7 MCHC 32.0 RDW Std Deviation 50.0 H RDW Coeff of Matthew 15.2 H Plt Count 273 MPV 9.7 Immature Gran % (Auto) 0.500 Neut % (Auto) 87.3 H Lymph % (Auto) 4.0 L [place] % (Auto) 7.5 Eos % (Auto) 0.2 Baso % (Auto) 0.5 Absolute Neuts (auto) 14.4 H Absolute Lymphs (auto) 0.66 L Nucleated RBC % 0 Sodium 132 L Potassium 4.0 Chloride 102 Carbon Dioxide 21.0 Anion Gap 9 BUN 43 H Creatinine 2.40 H Estim Creat Clear Calc 32.40 Est GFR (MDRD) Af Amer 34 L Est GFR (MDRD) Non-Af 28 L BUN/Creatinine Ratio 17.9 Glucose 132 H Lactic Acid 0.9 Calcium 8.6 Troponin I High Sens 16 Urine Color Yellow Urine Clarity Cloudy Urine pH 6.0 Ur Specific [place] 1.015 Urine Protein 100 H Urine Glucose (UA) Normal Urine Ketones Negative Urine Occult Blood 250 H Urine Nitrite Negative Urine Bilirubin Negative Urine Urobilinogen Normal Ur Leukocyte Esterase 500 H Urine RBC 25-50 SEEN Urine WBC >100 SEEN Ur Squamous Epith Cells 0 SEEN Urine Bacteria 4+ Urine Mucus 0 SEEN Radiography Diagnostic Testing: Clinical Impression(s) from Imaging Studies Chest X-Ray 01/09/24 11:54 IMPRESSION: Degenerative changes, as described above. No demonstrated acute cardiopulmonary process. Electronically Signed: Michael Ayala MD at 12:49 EST , ED attending interpretation of 2-view chest x-ray shows normal heart size, no acute infiltrate, edema, or effusion. <Dr. Yolanda Hammonds, DO - Last Filed: 01/09/24 13:17> [facility] MDM Narrative Medical decision making narrative: Differential: UTI, viral illness, pneumonia among others Patient has generalized weakness over the last 5 days was having a hard time getting out of bed. He is having looser stools for about 2 days. He self catheterizes and notes dysuria. He appears ill but nontoxic. Afebrile with normal vital signs. His exam is benign. He has no abdominal or flank pain. Labs show white count of 16.6, acute kidney injury with BUN 43, creatinine 2.40, and UTI. He was treated with IV fluids and Rocephin. CXR is negative and COVID/flu/RSV swab also negative. Case will be discussed with the hospitalist for admission. I have personally performed a face to face assessment of the patient and have reviewed the INOCENCIO Note. I performed a substantive portion of the visit including all aspects of the following. My mcdaniels findings include: History is [patient presents to the emergency department complaint generalized weakness x 5 or 6 days. Having a hard time getting out of bed and caring for self. He called EMS today. Patient has had some watery stools for about 2 days. He also self caths and has had some burning with urination. He gets your frequent urinary tract infections. He had 1 episode of vomiting after trying to take some of his medications. Denies significant cough or fever or sore throat.] Exam is [HEENT-PERRLA, EOMI. Cranial nerves II through XII grossly intact. TMs clear. Mucous membranes moist. No adenopathy. Cardiovascular-regular rate and rhythm without murmur or ectopy Lungs-clear to auscultation, chest wall stable without crepitus or subcu emphysema Abdomen-normoactive bowel sounds, soft, nontender, no rebound or rigidity, no peritoneal signs. Extremities-intact ?4, normal range of motion, normal pulses, atraumatic] Medical Decison Making [patient presents with generalized weakness. Will obtain basic lab workup and urinalysis as well as COVID and flu and RSV testing.] Patient noted to have an elevated with WBC count and positive for UTI. Chest x- ray was unremarkable. He was started on Rocephin IV. Patient also noted to have acute kidney injury. Case will be discussed with hospitalist evaluate patient for admission Other additions or changes: [None] Lab Data Labs: Laboratory Results - last 24 hr 01/09/24 01/09/24 01/09/24 12:10 12:30 12:46 WBC 16.6 H RBC 3.45 L Hgb 9.9 L Hct 30.9 L MCV 89.6 MCH 28.7 MCHC 32.0 RDW Std Deviation 50.0 H RDW Coeff of Matthew 15.2 H Plt Count 273 MPV 9.7 Immature Gran % (Auto) 0.500 Neut % (Auto) 87.3 H Lymph % (Auto) 4.0 L [place] % (Auto) 7.5 Eos % (Auto) 0.2 Baso % (Auto) 0.5 Absolute Neuts (auto) 14.4 H Absolute Lymphs (auto) 0.66 L Nucleated RBC % 0 Sodium 132 L Potassium 4.0 Chloride 102 Carbon Dioxide 21.0 Anion Gap 9 BUN 43 H Creatinine 2.40 H Estim Creat Clear Calc 32.40 Est GFR (MDRD) Af Amer 34 L Est GFR (MDRD) Non-Af 28 L BUN/Creatinine Ratio 17.9 Glucose 132 H Lactic Acid 0.9 Calcium 8.6 Troponin I High Sens 16 Urine Color Yellow Urine Clarity Cloudy Urine pH 6.0 Ur Specific [place] 1.015 Urine Protein 100 H Urine Glucose (UA) Normal Urine Ketones Negative Urine Occult Blood 250 H Urine Nitrite Negative Urine Bilirubin Negative Urine Urobilinogen Normal Ur Leukocyte Esterase 500 H Urine RBC 25-50 SEEN Urine WBC >100 SEEN Ur Squamous Epith Cells 0 SEEN Urine Bacteria 4+ Urine Mucus 0 SEEN Radiography Diagnostic Testing: Clinical Impression(s) from Imaging Studies Chest X-Ray 01/09/24 11:54 IMPRESSION: Degenerative changes, as described above. No demonstrated acute cardiopulmonary process. Electronically Signed: Michael Ayala MD at 12:49 EST , EKG Initial EKG: Attestation: I personally reviewed and interpreted this EKG as follows: Comments: Sinus rhythm with rate of 87 bpm with left anterior fascicular block Discharge Plan Triage Chief Complaint: Weakness Other Complaint: Fall Complaint ED Midlevel Provider: Yudy Gomez ED Provider: Yolanda Hammonds Dx/Rx/DC Orders Clinical Impression: MUNA (acute kidney injury), Acute UTI, Leukocytosis, Weakness Prescriptions: No Action amlodipine 10 mg tablet 10 mg PO DAILY gabapentin 300 mg capsule 600 mg PO TID tamsulosin 0.4 mg capsule 0.4 mg PO QHS trazodone 50 mg tablet 50 mg PO QHS lisinopril 20 mg tablet 20 mg PO DAILY ferrous sulfate [FeroSul] 325 mg (65 mg iron) tablet 325 mg PO BIDCM bupropion HCl 300 mg tablet extended release 24 hr 300 mg PO DAILY melatonin 5 mg tablet 5 mg PO QHS meclizine 12.5 mg tablet 12.5 mg PO TID Patient Comments: COMIMG IN THE MAIL, PT HASNT RECEIVED YET. Primary Care Provider: Marbella Zaidi Referrals: Marbella Zaidi PA [Primary Care Provider] -
--- NOTE | 2024-01-09 12:02 | EKG12_ITS ---
Test Reason : WEAKNESS Blood Pressure : / mmHG Vent. Rate : 087 BPM Atrial Rate : 087 BPM P-R Int : 168 ms QRS Dur : 102 ms QT Int : 368 ms P-R-T Axes : 018 -50 -15 degrees QTc Int : 442 ms Normal sinus rhythm Left anterior fascicular block Abnormal ECG Confirmed by GILSON CASTANON, FITO ([id number]), photographic editor MIRIAM POLLARD ([id number]) on 01/10/2024 10:09:14 AM Referred By: Confirmed By:FITO RIGGINS MD
[2024-01-09] MEDS: 0.9% Normal Saline (1000mL) 1,000 ML 999 ML IV (12:10)
[2024-01-09 12:19] LABS: Absolute Lymphocyte Count 0.66 X10^3/uL (0.83-4.51); Absolute Neutrophil Count 14.4 X10^3/uL (2.0-7.7); Basophil# 0.09 X10^3/uL; Basophil% 0.5 % (0-1); Eosinophil# 0.03 X10^3/uL; Eosinophils% 0.2 % (0-5); Hematocrit 30.9 % (40-54); Hemoglobin 9.9 g/dL (13.0-16.5); Lymphocyte # 0.66 X10^3/ul (0.83-4.51); Mean Corpuscular Hgb 28.7 pg (27.0-32.0); Mean Corpuscular Volume 89.6 fL (80-94); Mean Platelet Vol. 9.7 fl (6.2-12.0); Monocyte# 1.25 X10^3/uL; Monocyte% 7.5 % (0-10); NRBC Flagged by Analyzer 0 % (0-5); Neutrophil # 14.44 X10^3/uL (2.7-7.7); Neutrophil % 87.3 % (47-70); Platelet Count 273 K/mm3 (150-450); RBC Distribution Width CV 15.2 % (11.6-14.6); Red Blood Count 3.45 M/mm3 (4.6-6.2); White Blood Count 16.6 K/mm3 (4.4-11.0)
[2024-01-09 12:37] LABS: Anion Gap 9 (5-15); BUN 43 mg/dL (7-18); BUN/Creat Ratio 17.9 RATIO (10-20); Calcium,Total 8.6 mg/dL (8.5-10.1); Chloride 102 mmol/L (98-107); EST Glomerular Filtration Rate 28 mL/min (>60); Est Glom Filt Rate - Afr Amer 34 mL/min (>60); Glucose 132 mg/dL (74-106); Sodium Level 132 mmol/L (136-145); Troponin-I HS 16 pg/mL (3.0-78.0)
[2024-01-09 12:45] LABS: Mucous, Urine 0 SEEN /hpf (<or=2+); Squamous Epithelial Cells - UA 0 SEEN /hpf (0-5)
[2024-01-09 12:57] LABS: Color, Urine Yellow (Yellow); Glucose, Dipstick Normal (Normal); Ketone-Dipstick Negative (Negative); Leukocyte Esterase-Dipstick 500 /ul (Negative); Nitrite-Dipstick Negative (Negative); Occult Blood-Urine 250 /ul (Negative); Protein-Dipstick 100 mg/dl (Negative); Specific Gravity, Urine 1.015 (1.002-1.030); Urine Bilirubin Dipstick Negative (Negative); Urine Clarity Cloudy (Clear); Urine Urobilinogen Normal (Normal)
[2024-01-09 13:10] LABS: Bacteria 4+ /hpf (None Seen); Red Blood Cells-Urine 25-50 SEEN /hpf (0-5); White Blood Cells >100 SEEN /hpf (0-5)
[2024-01-09 13:20] LABS: Lactic Acid 0.9 mmol/L (0.4-1.9)
--- NOTE | 2024-01-09 13:30 | NURSING ---
MED SURG GR UTI, MUNA
--- NOTE | 2024-01-09 13:52 | ED.RN ---
called pharmacy to inquire about IV antibiotic ordered,
[2024-01-09 13:53] VITALS: BP 121/57; PULSE 82; RESP 18; TEMP 36.6; O2SAT 91
--- NOTE | 2024-01-09 14:05 | HP.PCM.HOS_ITS ---
[facility] - General General Date of Admission: 01/09/24 Date of Service: 01/09/24 Chief Complaint: Fatigue, dizziness HPI Narrative MIROSLAVA PERALTA, is a 73 M with past medical history of suspected urinary tract obstruction on self-catheterization at home, total hip replacement, numbness in both hands, right femoral fracture, suspected NSAID associated UMNA on CKD with chronic naproxen use who presents progressive fatigue and weakness for the last 1 month. Prior admission He was previously discharged on September 2023 with concerns of hematuria and dysuria. His urine analysis had showed positive nitrites and WBC, had a Dowling reinserted, and urine culture grew procidentia. He was initially started on Rocephin but was transitioned to ciprofloxacin. Today For the last few days he has noticed worsening fatigue and dizziness. He is generally wheelchair-bound because of chronic body aches and disability but was finding it more difficult for the last 5 days to mobilize. No fever but there was some associated dysuria without any hematuria. He specifically notes he was not able to maintain hygienic conditions while self-catheterization and suspects that led to his present urinary tract infection. No flank pain, no nausea or vomiting. No anorexia. Also has been noticing diarrhea for the last couple of days 1 or 2 bowel movements with loose stool, had incontinence episodes in the bed as he is not able to mobilize. Lives by himself but close friend's comes for support and helps him out with his medications. [facility] Medical History (Updated 01/09/24 @ 13:[address] Yolanda Hammonds, ) Anxiety Anxiety Depression Essential (primary) hypertension GERD (gastroesophageal reflux disease) Hepatitis A History of fractured rib (08/12/20) Hypertension Osteoarthritis Right femoral fracture Vision loss of right eye Home Medications amlodipine 10 mg tablet 10 mg PO DAILY BLOOD PRESSURE 10/28/20 [History Last Taken 01/08/24] gabapentin 300 mg capsule 600 mg PO TID NEUROPATHY 03/29/22 [History Last Taken 01/08/24] tamsulosin 0.4 mg capsule 0.4 mg PO QHS PROSTATE 03/11/23 [History Last Taken 01/08/24] bupropion HCl 300 mg 24 hr tablet, extended release 300 mg PO DAILY DEPRESSION 09/28/23 [History Last Taken 01/08/24] ferrous sulfate 325 mg (65 mg iron) tablet (FeroSul) 325 mg PO BIDCM SUPPLEMENT 09/28/23 [History Last Taken 01/08/24] lisinopril 20 mg tablet 20 mg PO DAILY BLOOD PRESSURE 09/28/23 [History Last Taken 01/08/24] melatonin 5 mg tablet 5 mg PO QHS SLEEP 09/28/23 [History Last Taken 01/08/24] trazodone 50 mg tablet 50 mg PO QHS SLEEP 09/28/23 [History Last Taken 01/08/24] meclizine 12.5 mg tablet 12.5 mg PO TID 01/09/24 [History Last Taken Unknown] Allergy/AdvReac Type Severity Reaction Status Date / Time diltiazem [From Cardizem] AdvReac unknown Verified 01/09/24 11:35 losartan [From Hyzaar] AdvReac unknown Verified 01/09/24 11:35 metoprolol [From Lopressor] AdvReac unknown Verified 01/09/24 11:35 valsartan [From Diovan] AdvReac unknown Verified 01/09/24 11:35 Family History Mother Heart disease Cancer breast Sister Heart disease Surgical History History of elbow surgery History of hip replacement History of lumbar laminectomy for spinal cord decompression History of shoulder surgery Social History Smoking Status: Former smoker quit date: 11/22/92 pack-years: 46 alcohol intake: former year quit: 1991 Addt'l Information Additional Findings: Last CT scan done on 09/28/2023 showed bilateral hydronephrosis and hydroureter with no obstructive stones there was minimal urinary bladder wall thickening with possible extrinsic compression of the ureters. ROS Review of Systems ROS Unobtainable: Denies due to encephalopathy, due to endotracheal tube, due to mental condition, due to mental status or other Constitutional Constitutional: Reports change in weight, fatigue, malaise and weakness; Denies fever(s) or night sweats Eyes Eyes: Denies blurry vision, change in eye color, change in vision, discharge from eye(s), double vision, erythema, eye pain, loss of vision or other ENT HEENT: Denies abnormal hearing, dysphagia, ear pain, epistaxis, headache(s), hearing loss, nasal congestion, nasal discharge, post nasal drip, sinus pressure, sore throat or other Cardiovascular Cardiovascular: Denies chest pain, claudication, dyspnea on exertion, edema, l ightheadedness, orthopnea, palpitations, paroxysmal nocturnal dyspnea, rapid heart rate, syncope or other Respiratory/Chest Respiratory/Chest: Denies cough, dyspnea, excessive phlegm production, hemoptysis, productive cough, shortness of breath at rest, shortness of breath with exertion, wheezing or other Gastrointestinal Gastrointestinal: Reports diarrhea; Denies abdominal pain, coffee ground emesis, constipation, dyspepsia, hematemesis, hematochezia, loose stools, melena, nausea, vomiting or other Genitourinary Genitourinary: Reports dysuria, nocturia, urinary frequency, urinary hesitancy and urinary incontinence; Denies burning urination, difficulty urinating, hematuria, urinary urgency or other Musculoskeletal Musculoskeletal: Reports arthralgias, back pain, joint pain and joint stiffness Neurologic Neurologic: Reports abnormal gait and dizziness Psychiatric Psychiatric: Denies anxiety, depression, homicidal ideation, suicidal ideation or other Hematologic/Lymphatic Hematologic/Lymphatic: Denies anemia, easy bleeding, easy bruising, lymp hadenopathy or other Allergic/Immunologic Allergic/Immunologic: Denies rhinitis, hives, eczemia, asthma or other Vital Signs Vital Signs Vital Signs: 01/09/24 11:35 01/09/24 11:39 01/09/24 11:39 Temperature 96.8 F L Temperature Source Temporal Pulse Rate 92 Respiratory Rate 18 Respiratory Effort Normal Non-Labored Normal Non-Labored Respiratory Depth Normal Respiratory Pattern Normal Normal Blood Pressure 110/60 Blood Pressure Mean 76 Pulse Ox 94 Oxygen Delivery Method Room Air 01/09/24 13:53 Temperature 98 F Temperature Source Pulse Rate 82 Respiratory Rate 18 Respiratory Effort Respiratory Depth Respiratory Pattern Blood Pressure 121/57 H Blood Pressure Mean 78 Pulse Ox 91 Oxygen Delivery Method Weight Weight: 218 lb 7.649 oz Body Mass Index (BMI) 30.4 Physical Exam Const alert and oriented x3 HEENT normocephalic Eyes PERRL Neck no lymphadenopathy and supple Resp normal respiratory effort Cardio regular rate and regular rhythm GI normal to inspection, nondistended, normoactive bowel sounds Extremity normal to inspection Neuro oriented x3 Psych affect normal Results Medical Records Data Attestation: I reviewed the patient's medical records Lab / Micro Data Attestation: I reviewed the patient's lab results. 01/09/24 12:10 01/09/24 12:10 Labs: Laboratory Results - last 24 hr 01/09/24 12:10: WBC 16.6 H, RBC 3.45 L, Hgb 9.9 L, Hct 30.9 L, MCV 89.6, MCH 28.7, MCHC 32.0, RDW Std Deviation 50.0 H, RDW Coeff of Matthew 15.2 H, Plt Count 273, MPV 9.7, Immature Gran % (Auto) 0.500, Neut % (Auto) 87.3 H, Lymph % (Auto) 4.0 L, [place] % (Auto) 7.5, Eos % (Auto) 0.2, Baso % (Auto) 0.5, Absolute Neuts (auto) 14.4 H, Absolute Lymphs (auto) 0.66 L, Nucleated RBC % 0, Sodium 132 L, Potassium 4.0, Chloride 102, Carbon Dioxide 21.0, Anion Gap 9, BUN 43 H, Cr eatinine 2.40 H, Estim Creat Clear Calc 32.40, Est GFR (MDRD) Af Amer 34 L, Est GFR (MDRD) Non-Af 28 L, BUN/Creatinine Ratio 17.9, Glucose 132 H, Calcium 8.6, Troponin I High Sens 16 01/09/24 12:30: Urine Color Yellow, Urine Clarity Cloudy, Urine pH 6.0, Ur Specific [place] 1.015, Urine Protein 100 H, Urine Glucose (UA) Normal, Urine Ketones Negative, Urine Occult Blood 250 H, Urine Nitrite Negative, Urine Bilirubin Negative, Urine Urobilinogen Normal, Ur Leukocyte Esterase 500 H, Urine RBC 25-50 SEEN, Urine WBC >100 SEEN, Ur Squamous Epith Cells 0 SEEN, Urine Bacteria 4+, Urine Mucus 0 SEEN 01/09/24 12:46: Lactic Acid 0.9 Micro: Microbiology 01/09/24 12:10 Mucosa - Nose SARS-CoV-2, Influenza & RSV (PCR) - Final Imaging Radiology Impression Chest X-Ray 01/09/24 11:54 IMPRESSION: Degenerative changes, as described above. No demonstrated acute cardiopulmonary process. Electronically Signed: Michael Ayala MD at 12:49 EST Reading Location ID and State: [address] [place] [address] , Service support , Assessment & Plan Assessment/Plan (1) Acute UTI: PLAN: Plan Mr Peralta, 73 year old male presents for evaluation of worsening fatigue, dizziness in the setting of urinary tract infection. He has a past medical history of suspected urinary tract obstruction with hydronephrosis seen on previous imaging, recurrent urinary tract infections, diffuse osteoarthritis, lumbar cord compression. 1. Complicated urinary tract infection: -Will start therapy with Rocephin, urine cultures are sent from the ED -I will send blood cultures to rule out urosepsis -Given the dizziness we will start him on gentle fluid therapy monitoring urine output and creatinine levels -Will consider urology visit after discharge for cystoscopy and management of the BPH as able -Continue tamsulosin -Will get US KUB to rule out any worsening hydronephrosis -Close monitoring of I's and O's 2. Essential hypertension: Will continue home medications for now blood pressure was stable in the ED. 3. Worsening functional status: Poor social support, suspect malnutrition -PT/OT consult -Heart healthy cardiac diet 4. MUNA on CKD: In the setting of infection, prior NSAID use naproxen, hydronephrosis seen on prior imaging. -Daily creatinine monitoring -Normal saline 100 mL/h for 8 hours -Treatment for UTI as above 5. Hyponatremia: Improved compared to prior admissions, continue to monitor for now 6. Chronic depression: Continue home medications Charges/Coding Visit Charges Inpatient E&M: 25535 Init Hosp L2
[2024-01-09] MEDS: Ceftriaxone 1 GM/50 ML BAG IV (14:06)
[2024-01-09 14:56] VITALS: BMI 30.4
[2024-01-09] MEDS: Acetaminophen 500 MG Tablet 1000 MG PO ×2 (15:28→20:49)
[2024-01-09] MEDS: Gabapentin 600 MG Tablet PO ×2 (15:28→20:48)
[2024-01-09] MEDS: Enoxaparin 40 MG/0.4 ML Syringe SC (15:29)
[2024-01-09 15:53] VITALS: BP 98/48; PULSE 94; RESP 18; TEMP 36.9; O2SAT 95
[2024-01-09] MEDS: Nystatin Powder 15gm Bottle 1 APPLIC TOPICAL ×2 (16:24→21:10)
[2024-01-09] MEDS: Menthol/Lanolin/Calamine/Znox 113 GM Tube 1 APPLIC TOPICAL ×2 (16:24→20:49)
[2024-01-09] MEDS: 0.9% Saline Lock 10 ML Syringe IV (18:23)
[2024-01-09] MEDS: Lactated Ringers 1,000 ML 100 ML IV (18:23)
[2024-01-09] MEDS: Ferrous Sulfate 325 MG Tablet PO (18:24)
[2024-01-09] MEDS: MELATONIN 10 MG TABLET 5 MG PO (20:48)
[2024-01-09] MEDS: traZODone 50 MG Tablet PO (20:50)
[2024-01-09] MEDS: Tamsulosin HCl 0.4 MG Capsule 0.400000000000000022 MG PO (20:50)
[2024-01-09 21:14] VITALS: BP 114/63; PULSE 92; RESP 16; TEMP 38.3; O2SAT 94
[2024-01-09 23:46] VITALS: TEMP 37.3
[2024-01-10 04:22] VITALS: BP 105/58; PULSE 82; RESP 16; TEMP 36.8; O2SAT 98
[2024-01-10] MEDS: Acetaminophen 500 MG Tablet 1000 MG PO ×3 (05:10→21:55)
[2024-01-10] MEDS: Gabapentin 600 MG Tablet PO ×3 (05:10→21:54)
--- NOTE | 2024-01-10 06:00 | US_ITS ---
PROCEDURE: RENAL ULTRASOUND - COMPLETE REASON FOR EXAM: Male, 73 years old. Suspected hydronephrosis TECHNIQUE: Ultrasound evaluation of the bilateral kidneys was performed with real-time ultrasonography and static grayscale imaging. COMPARISON: CT scan of the abdomen and pelvis of 09/28/2023. FINDINGS: RIGHT KIDNEY: Normal location of the right kidney which is normal in size. The right kidney measures 12.7 x 4.8 x 5.5 cm. There is a normal cortex of the right kidney. The renal cortex measures 1.9 cm. There is no right renal mass or cyst. There are no right renal calculi. There is no right hydronephrosis. DISTAL RIGHT URETER: There is non-visualization of the distal right ureter. There is no demonstrated right ureterovesical junction calculus. There is no demonstrated right ureteral jet. LEFT KIDNEY: Normal location of the left kidney which is normal in size. The left kidney measures 13.5 x 6.6 x 6.4 cm. There is a normal cortex of the left kidney. The renal cortex measures 2.5 cm. There is no left renal mass or cyst. There are no left renal calculi. There is no left hydronephrosis. DISTAL LEFT URETER: There is non-visualization of the distal left ureter. There is no demonstrated left ureterovesical junction calculus. There is no demonstrated left ureteral jet. BLADDER: The distended urinary bladder has a volume of 8 ml. This is a Dowling catheter in the bladder. Bladder is not distended. US/Kidney and Bladder IMPRESSION: No evidence of hydronephrosis. Electronically Signed: Milton Lunsford MD at 8:14 EST ,
[2024-01-10 06:30] LABS: Absolute Lymphocyte Count 0.68 X10^3/uL (0.83-4.51); Absolute Neutrophil Count 7.8 X10^3/uL (2.0-7.7); Basophil# 0.06 X10^3/uL; Basophil% 0.6 % (0-1); Eosinophil# 0.17 X10^3/uL; Eosinophils% 1.8 % (0-5); Hematocrit 28.7 % (40-54); Hemoglobin 9.1 g/dL (13.0-16.5); Lymphocyte # 0.68 X10^3/ul (0.83-4.51); Mean Corp Hgb Conc 31.7 g/dL (32-36); Mean Corpuscular Hgb 28.4 pg (27.0-32.0); Mean Corpuscular Volume 89.7 fL (80-94); Monocyte# 0.93 X10^3/uL; Monocyte% 9.6 % (0-10); NRBC Flagged by Analyzer 0 % (0-5); Neutrophil # 7.78 X10^3/uL (2.7-7.7); Neutrophil % 80.4 % (47-70); Platelet Count 267 K/mm3 (150-450); RBC Distribution Width CV 15.1 % (11.6-14.6); RBC Distribution Width SD 49.4 fl (35.1-43.9); White Blood Count 9.7 K/mm3 (4.4-11.0)
[2024-01-10 06:41] LABS: International Normalized Ratio 1.3
[2024-01-10 07:06] LABS: ALB/GLOB Ratio 0.5 RATIO (0.9-2.4); AST(SGOT) 20 U/L (15-37); Alanine Aminotransfer ALT/SGPT 18 U/L (16-61); Albumin, Serum 2.4 g/dL (3.2-5.0); Alkaline Phosphatase 57 U/L (45-117); Anion Gap 7 (5-15); BUN 46 mg/dL (7-18); Calcium,Total 8.4 mg/dL (8.5-10.1); Chloride 105 mmol/L (98-107); EST Glomerular Filtration Rate 30 mL/min (>60); Est Glom Filt Rate - Afr Amer 36 mL/min (>60); Estimated Creatinine Clearance 33.81 ml/min; Globulin 4.4 g/dL (2.2-4.2); Glucose 114 mg/dL (74-106); Magnesium 2.2 mg/dL (1.6-2.6); Phosphorus 3.9 mg/dL (2.5-4.9); Potassium 3.7 mmol/L (3.5-5.1); Protein, Total 6.8 g/dL (6.4-8.2); Sodium Level 133 mmol/L (136-145); Thyroid Stim Hormone (TSH) 1.28 uIU/mL (0.358-3.74)
--- NOTE | 2024-01-10 10:00 | PCM.PN.HOSP ---
Subjective Subjective Doing well, resting comfortably. Objective Data Objective Data Vital Signs: Vital Signs Temp Pulse Resp BP Pulse Ox O2 Del Method 98.3 F 82 16 105/58 L 98 Room Air 01/10/24 04:22 01/10/24 04:22 01/10/24 04:22 01/10/24 04:22 01/10/24 04:22 01/10/24 04:22 Oxygen Delivery Method Room Air Weight: 218 lb 7.649 oz Body Mass Index (BMI) 30.4 Intake & Output: Intake and Output for Last 24 Hours 01/09/24 01/10/24 01/11/24 03:59 03:59 03:59 Intake Total 1500 / 1500 1000 / 1000 Output Total 800 / 800 900 / 900 Balance 700 / 700 100 / 100 Lab / Micro Data 01/10/24 05:37 01/10/24 05:37 Labs: Laboratory Results - last 24 hr 01/09/24 12:10: WBC 16.6 H, RBC 3.45 L, Hgb 9.9 L, Hct 30.9 L, MCV 89.6, MCH 28.7, MCHC 32.0, RDW Std Deviation 50.0 H, RDW Coeff of Matthew 15.2 H, Plt Count 273, MPV 9.7, Immature Gran % (Auto) 0.500, Neut % (Auto) 87.3 H, Lymph % (Auto) 4.0 L, [place] % (Auto) 7.5, Eos % (Auto) 0.2, Baso % (Auto) 0.5, Absolute Neuts (auto) 14.4 H, Absolute Lymphs (auto) 0.66 L, Nucleated RBC % 0, Sodium 132 L, Potassium 4.0, Chloride 102, Carbon Dioxide 21.0, Anion Gap 9, BUN 43 H, Creatinine 2.40 H, Estim Creat Clear Calc 32.40, Est GFR (MDRD) Af Amer 34 L, Est GFR (MDRD) Non-Af 28 L, BUN/Creatinine Ratio 17.9, Glucose 132 H, Calcium 8.6, Troponin I High Sens 16 01/09/24 12:30: Urine Color Yellow, Urine Clarity Cloudy, Urine pH 6.0, Ur Specific [place] 1.015, Urine Protein 100 H, Urine Glucose (UA) Normal, Urine Ketones Negative, Urine Occult Blood 250 H, Urine Nitrite Negative, Urine Bilirubin Negative, Urine Urobilinogen Normal, Ur Leukocyte Esterase 500 H, Urine RBC 25-50 SEEN, Urine WBC >100 SEEN, Ur Squamous Epith Cells 0 SEEN, Urine Bacteria 4+, Urine Mucus 0 SEEN 01/09/24 12:46: Lactic Acid 0.9 01/10/24 05:37: WBC 9.7, RBC 3.20 L, Hgb 9.1 L, Hct 28.7 L, MCV 89.7, MCH 28.4, MCHC 31.7 L, RDW Std Deviation 49.4 H, RDW Coeff of Matthew 15.1 H, Plt Count 267, MPV 10.0, Immature Gran % (Auto) 0.600, Neut % (Auto) 80.4 H, Lymph % (Auto) 7.0 L, [place] % (Auto) 9.6, Eos % (Auto) 1.8, Baso % (Auto) 0.6, Absolute Neuts (auto) 7.8 H, Absolute Lymphs (auto) 0.68 L, Nucleated RBC % 0, PT 16.0 H, INR 1.3, Sodium 133 L, Potassium 3.7, Chloride 105, Carbon Dioxide 21.0, Anion Gap 7, BUN 46 H, Creatinine 2.30 H, Estim Creat Clear Calc 33.81, Est GFR (MDRD) Af Amer 36 L, Est GFR (MDRD) Non-Af 30 L, BUN/Creatinine Ratio 20.0, Glucose 114 H, Calcium 8.4 L, Phosphorus 3.9, Magnesium 2.2, Total Bilirubin 0.30, AST 20, ALT 18, Alkaline Phosphatase 57, Total Protein 6.8, Albumin 2.4 L, Globulin 4.4 H, Albumin/Globulin Ratio 0.5 L, TSH 1.28 Micro: Microbiology 01/09/24 12:10 Mucosa - Nose SARS-CoV-2, Influenza & RSV (PCR) - Final Radiography Diagnostic Testing: Radiology Impression Chest X-Ray 01/09/24 11:54 IMPRESSION: Degenerative changes, as described above. No demonstrated acute cardiopulmonary process. Electronically Signed: Michael Ayala MD at 12:49 EST Reading Location ID and State: [facility] / [place] , Service support , Renal Ultrasound 01/10/24 06:00 IMPRESSION: No evidence of hydronephrosis. Electronically Signed: Milton Lunsford MD at 8:14 EST , Physical Exam Narrative General: Alert, Oriented x3, Cooperative, No apparent distress HEENT: Atraumatic, PERRLA, EOMI, Normocephalic Oral: Moist Mucosa Neck: Supple, No JVD Lungs: Diminished, Normal air movement, No rhonchi, No wheeze, No rales Cardiovascular: Regular rate, Regular Rhythm, Normal S1, Normal S2, No murmurs Abdomen: Soft, Non Tender, Non-Distended, No Hepato-splenomegaly Extremities: No edema, Capillary Refill Less than 3 Seconds Skin: No rashes, No breakdown Musculoskeletal: No Tenderness to Palpation of Joints or Extremities Neurological: No focal neurological deficits, motor and sensory exams at baseline Psych/Mental Status: Normal Affect, Appropriate Assessment & Plan Assessment/Plan (1) Acute UTI: PLAN: Plan 1. UTI/MUNA ? Complicated by the fact that he self catheterizes and is in a wheelchair ? Urine cultures pending as are blood cultures ? Continue with Rocephin ? Currently on Flomax for BPH ? Renal ultrasound unremarkable ? Will monitor renal function, he does not have chronic kidney disease based on his previous GFR's ? PT/OT 2. Essential HTN ? Blood pressures are stable ? Will hold nephrotoxic agents ? Will monitor make adjustments as necessary 3. Anxiety/depression ? Stable ? Continue with his home medications DVT: Lovenox Charges/Coding Visit Charges Inpatient E&M: 75028 Subs Hosp L2
[2024-01-10 10:02] VITALS: BP 99/58; PULSE 81; RESP 18; TEMP 37.6; O2SAT 95
[2024-01-10] MEDS: Enoxaparin 40 MG/0.4 ML Syringe SC (10:17)
[2024-01-10] MEDS: buPROPion (XL) 300 MG TABLET.XL PO (10:18)
[2024-01-10] MEDS: Nystatin Powder 15gm Bottle 1 APPLIC TOPICAL ×2 (10:18→21:56)
[2024-01-10] MEDS: Ferrous Sulfate 325 MG Tablet PO ×2 (10:18→17:06)
[2024-01-10] MEDS: Menthol/Lanolin/Calamine/Znox 113 GM Tube 1 APPLIC TOPICAL ×2 (10:18→21:55)
[2024-01-10] MEDS: Ceftriaxone 1 GM/50 ML BAG IV (10:19)
--- NOTE | 2024-01-10 10:46 | CASEMGMT ---
Discharge Planning A list of?SNF?providers including quality and resource use data and consistent with the patient's preferred geographic region, medical needs, and insurance network was created in CarePort Guide.? This list was provided to the SW. Doreen Salazar, Discharge Planning Asst.
--- NOTE | 2024-01-10 11:23 | CASEMGMT ---
IMMANUEL HOWE Assessment Face to Face with patient for initial transition planning/care coordination assessment. IMMANUEL HOWE introduced self and role at [facility], pt voices understanding. Pt is A&Ox4 and is resting comfortably in bed and is calm. Care providers, pharmacy, and demographics verified. Admitting dx: STACIE HAWKINS Strata: 1 PCP: Dejuan Specialists: Pt states that he sees a few specialist but cannot recall their names or specialties at this time Preferred Pharmacy:[facility] [place] [facility]: Yes LNOK: Jocelin Man (Friend), Ailin Villalta (Daughter - Lives in [place]) Living Arrangements: Pt currently lives alone on the second floor of an apartment complex and uses an elevator to get to the second level. Denies steps in the apartment or for entry. Pt states that he has never used the flight of stairs before and states that he would be unable to manage them if needed. ADLs/IADLs: Pt states he is able to manage most ADLs but requires help with IADLs. Pt states that his friend helps but is unable to help 14/06. Transportation: Pt does not drive. Pt friend's (Singh) drive the pt when needed. DME: Pt uses a WC. Pt has a shower chair, postpartum rn, and FWW at home. HHC/SNF: [facility] x 6 months. Pt states he has had HHC through his insurance in the past. Pt states he has been going to [facility] for therapy but he has been unable to recently with his current condition/ weakness. Pt?s goal: Return to [place] to be able to return home alone. Plan: Pt 6-Click is 9. Therapy is recommending SNF. Pt states that his friends that help him are getting old and can't help me out as much as I need. Pt states he has had increased falls at home recently. Pt states that he would be agreeable to go to a SNF for rehab after stay here. RHEA Oliver updated and to follow. Freeman Olivier RN, CM
[2024-01-10 15:00] VITALS: BP 143/88; PULSE 83; RESP 18; TEMP 36.6; O2SAT 97
--- NOTE | 2024-01-10 15:26 | NURSING ---
Bladder scanned pt for 525 and straight cath him for 800ml.
--- NOTE | 2024-01-10 15:38 | NURSING ---
pt sees [facility] urologist Cm Wiggins MEDIA RELATIONS MANAGER [phone]
--- NOTE | 2024-01-10 17:00 | CASEMGMT ---
Social Work - Discharge Planning Handoff from Zheng GAMBINO CM regarding discharge planning and indication for SNF level of care at time of discharge. Collaboration with Discharge school psychologist assistant for SNF list, generated from [facility] for patient's geographical region, insurance provider, which includes Medicare star and quality ratings. Met with patient in room. Attempted this morning, but patient was sleeping soundly and did not waken when this television script writer entered patient's room and called out patient's name. This afternoon, patient awake and ready to engage in conversation. Patient agreeable to short term SNF. List of SNF's provided. Pateint reports desire to stay in [place], but does not want [facility]. Chose either [facility] or [facility], but unsure at this time which is preferred facility. Plan: Referrals being made to [facility] and [facility]. Will need to obtain insurance authorization for SNF as well. -CHARI Echevarria
[2024-01-10] MEDS: traZODone 50 MG Tablet PO (21:55)
[2024-01-10] MEDS: Tamsulosin HCl 0.4 MG Capsule 0.400000000000000022 MG PO (21:55)
[2024-01-10] MEDS: MELATONIN 10 MG TABLET 5 MG PO (21:56)
[2024-01-10 22:23] VITALS: BP 117/71; PULSE 83; RESP 16; TEMP 37.5; O2SAT 94
[2024-01-11] MEDS: Acetaminophen 500 MG Tablet 1000 MG PO ×3 (05:19→20:50)
[2024-01-11] MEDS: Gabapentin 600 MG Tablet PO ×3 (05:19→20:43)
[2024-01-11 05:40] VITALS: BP 117/73; PULSE 72; RESP 16; TEMP 36.6; O2SAT 95
[2024-01-11] MEDS: Ferrous Sulfate 325 MG Tablet PO ×2 (07:41→16:53)
[2024-01-11] MEDS: Enoxaparin 40 MG/0.4 ML Syringe SC (07:42)
[2024-01-11] MEDS: Menthol/Lanolin/Calamine/Znox 113 GM Tube 1 APPLIC TOPICAL ×2 (07:42→20:46)
[2024-01-11] MEDS: Nystatin Powder 15gm Bottle 1 APPLIC TOPICAL ×2 (07:42→20:44)
[2024-01-11] MEDS: amLODIPine 10 MG Tablet PO (07:42)
[2024-01-11] MEDS: buPROPion (XL) 300 MG TABLET.XL PO (07:42)
[2024-01-11 08:06] VITALS: BP 112/62; PULSE 68; RESP 16; TEMP 36.5; O2SAT 97
[2024-01-11 08:18] LABS: Absolute Lymphocyte Count 0.82 X10^3/uL (0.83-4.51); Absolute Neutrophil Count 5.8 X10^3/uL (2.0-7.7); Basophil# 0.08 X10^3/uL; Eosinophil# 0.32 X10^3/uL; Hematocrit 30.7 % (40-54); Hemoglobin 9.6 g/dL (13.0-16.5); Lymphocyte # 0.82 X10^3/ul (0.83-4.51); Lymphocyte % 10.3 % (19-41); Mean Corp Hgb Conc 31.3 g/dL (32-36); Mean Corpuscular Hgb 28.2 pg (27.0-32.0); Mean Platelet Vol. 9.8 fl (6.2-12.0); Monocyte# 0.94 X10^3/uL; Monocyte% 11.8 % (0-10); NRBC Flagged by Analyzer 0 % (0-5); Neutrophil # 5.78 X10^3/uL (2.7-7.7); Neutrophil % 72.5 % (47-70); Platelet Count 262 K/mm3 (150-450); RBC Distribution Width SD 50.3 fl (35.1-43.9); Red Blood Count 3.41 M/mm3 (4.6-6.2)
--- NOTE | 2024-01-11 08:38 | CASEMGMT ---
Addendum entered by Doreen Salazar 01/11/24 09:39: Patient has been accepted by [facility] and [facility]. Patient would like to go to [facility]. Both facilities updated and asked [facility] to begin precert. Doreen Salazar, Discharge Planning Asst. Original Note: Discharge Planning Referral sent via [facility]Port to [facility] & [facility]. Doreen Salazar, Discharge Planning Asst.
[2024-01-11 09:05] LABS: Anion Gap 4 (5-15); BUN 40 mg/dL (7-18); BUN/Creat Ratio 20.1 RATIO (10-20); Calcium,Total 8.8 mg/dL (8.5-10.1); Chloride 110 mmol/L (98-107); Creatinine, Serum 1.99 mg/dL (0.70-1.30); EST Glomerular Filtration Rate 35 mL/min (>60); Est Glom Filt Rate - Afr Amer 42 mL/min (>60); Estimated Creatinine Clearance 39.07 ml/min; Glucose 109 mg/dL (74-106); Potassium 4.1 mmol/L (3.5-5.1); Sodium Level 137 mmol/L (136-145)
[2024-01-11] MEDS: Ceftriaxone 1 GM/50 ML BAG IV (09:06)
--- NOTE | 2024-01-11 09:13 | PCM.PN.HOSP ---
Subjective Subjective Doing well, feels better than when he came in. Objective Data Objective Data Vital Signs: Vital Signs Temp Pulse Resp BP Pulse Ox O2 Del Method 97.7 F L 68 16 112/62 97 Room Air 01/11/24 08:06 01/11/24 08:06 01/11/24 08:06 01/11/24 08:06 01/11/24 08:06 01/11/24 08:06 Oxygen Delivery Method Room Air Weight: 218 lb 7.649 oz Body Mass Index (BMI) 30.4 Intake & Output: Intake and Output for Last 24 Hours 01/10/24 01/11/24 01/12/24 03:59 03:59 03:59 Intake Total 1500 / 1500 1410 / 1410 Output Total 800 / 800 2600 / 2600 700 / 700 Balance 700 / 700 -1190 / -1190 -700 / -700 Lab / Micro Data 01/11/24 07:53 01/11/24 07:53 Labs: Laboratory Results - last 24 hr 01/11/24 07:53: WBC 8.0, RBC 3.41 L, Hgb 9.6 L, Hct 30.7 L, MCV 90.0, MCH 28.2, MCHC 31.3 L, RDW Std Deviation 50.3 H, RDW Coeff of Matthew 15.0 H, Plt Count 262, MPV 9.8, Immature Gran % (Auto) 0.400, Neut % (Auto) 72.5 H, Lymph % (Auto) 10.3 L, [place] % (Auto) 11.8 H, Eos % (Auto) 4.0, Baso % (Auto) 1.0, Absolute Neuts (auto) 5.8, Absolute Lymphs (auto) 0.82 L, Nucleated RBC % 0, Sodium 137, Potassium 4.1, Chloride 110 H, Carbon Dioxide 23.0, Anion Gap 4 L, BUN 40 H, Creatinine 1.99 H, Estim Creat Clear Calc 39.07, Est GFR (MDRD) Af Amer 42 L, Est GFR (MDRD) Non-Af 35 L, BUN/Creatinine Ratio 20.1 H, Glucose 109 H, Calcium 8.8 Micro: Microbiology 01/09/24 12:30 Urine, Catheterized Urine Culture - Final Providencia stuartii 01/09/24 12:10 Mucosa - Nose SARS-CoV-2, Influenza & RSV (PCR) - Final Physical Exam Narrative General: Alert, Oriented x3, Cooperative, No apparent distress HEENT: Atraumatic, PERRLA, EOMI, Normocephalic Oral: Moist Mucosa Neck: Supple, No JVD Lungs: Diminished, Normal air movement, No rhonchi, No wheeze, No rales Cardiovascular: Regular rate, Regular Rhythm, Normal S1, Normal S2, No murmurs Abdomen: Soft, Non Tender, Non-Distended, No Hepato-splenomegaly Extremities: No edema, Capillary Refill Less than 3 Seconds Skin: No rashes, No breakdown Musculoskeletal: No Tenderness to Palpation of Joints or Extremities Neurological: No focal neurological deficits, motor and sensory exams at baseline Psych/Mental Status: Normal Affect, Appropriate Assessment & Plan Assessment/Plan (1) Acute UTI: PLAN: Plan 1. UTI due to Providencia stuartii/MUNA ? Complicated by the fact that he self catheterizes and is in a wheelchair ? Blood cultures so far negative, and urine cultures demonstrated provide CF stuartii ? Continue with Rocephin ? Currently on Flomax for BPH ? Renal ultrasound unremarkable ? Will monitor renal function, he does not have chronic kidney disease based on his previous GFR's ? PT/OT, disposition to possible rehab versus SNF 2. Essential HTN ? Blood pressures are stable ? Will hold nephrotoxic agents ? Will monitor make adjustments as necessary 3. Anxiety/depression ? Stable ? Continue with his home medications DVT: Lovenox Charges/Coding Visit Charges Inpatient E&M: 46103 Subs Hosp L2
--- NOTE | 2024-01-11 12:01 | CHAPLAIN ---
Type of Pastoral Visit _x__ Initial Visit ___ Follow-up Visit ___ On-call Visit ___ General Patient Visit ___ Spiritual Assessment ___ Family Conference ___ Bereavement ___ Rapid Response ___ Code Blue ___ Other (describe below) Pastoral Care Referral From _x__ Patient ___ Family ___ Nurse ___ Physician ___ Pediatric Radiologist ___ Appliance Service Supervisor ___ Other (describe below) Sacrament/Intervention _x__ Active listening ___ Anointing ___ Church ___ Bereavement ___ Communion _x__ Ewelina exploration ___ _x__ Life review _x__ Prayer ___ Reconciliation ___ Sacrament of Sick ___ Supportive presence ___ Wedding ___ Other (describe below) Pastoral Comments patient is talkative and describes his health situation which has brought him to new realizations about aging; pt speaks of his ewelina and that he acknowledges that he has a blessed life; pt expresses gratitude for the time and support given by presence and prayer of this shared services representative
[2024-01-11 13:38] VITALS: BP 103/67; PULSE 82; RESP 16; TEMP 37.6; O2SAT 97
[2024-01-11 20:00] VITALS: BP 126/79; PULSE 86; RESP 15; TEMP 37; O2SAT 95
[2024-01-11] MEDS: traZODone 50 MG Tablet PO (20:45)
[2024-01-11] MEDS: Tamsulosin HCl 0.4 MG Capsule 0.400000000000000022 MG PO (20:45)
[2024-01-11 21:00] VITALS: RESP 15
[2024-01-11] MEDS: MELATONIN 10 MG TABLET 5 MG PO (21:30)
[2024-01-12 03:00] VITALS: BP 134/85; PULSE 77; RESP 15; TEMP 36.6; O2SAT 97
[2024-01-12 05:58] VITALS: BP 134/83; PULSE 79; RESP 15; TEMP 36.4; O2SAT 99
[2024-01-12] MEDS: Acetaminophen 500 MG Tablet 1000 MG PO ×2 (06:05→14:45)
[2024-01-12] MEDS: Gabapentin 600 MG Tablet PO ×2 (06:05→14:44)
[2024-01-12 08:59] LABS: Anion Gap 5 (5-15); BUN 34 mg/dL (7-18); BUN/Creat Ratio 20.5 RATIO (10-20); Calcium,Total 9.3 mg/dL (8.5-10.1); Chloride 110 mmol/L (98-107); Creatinine, Serum 1.66 mg/dL (0.70-1.30); EST Glomerular Filtration Rate 43 mL/min (>60); Est Glom Filt Rate - Afr Amer 52 mL/min (>60); Estimated Creatinine Clearance 46.84 ml/min; Glucose 107 mg/dL (74-106); Potassium 4.1 mmol/L (3.5-5.1); Sodium Level 137 mmol/L (136-145)
[2024-01-12 09:00] VITALS: BP 148/70; PULSE 70; RESP 18; TEMP 36.8; O2SAT 98
--- NOTE | 2024-01-12 09:08 | CASEMGMT ---
Social Work SW met with pt to discuss advance directives.? Pt confirms he has completed a living will and health care POA naming his daughter Ailin Villalta.? Pt notified that documents are not on file at [facility] and SW requested they be brought in for scanning into the EMR.? MARGARITA Payan
--- NOTE | 2024-01-12 09:16 | PN.HOSP_ITS ---
Subjective Subjective Doing well, no issues overnight. Feels better than when he came in Objective Data Objective Data Vital Signs: Vital Signs Temp Pulse Resp BP Pulse Ox O2 Del Method 97.6 F L 79 15 134/83 H 99 Room Air 01/12/24 05:58 01/12/24 05:58 01/12/24 05:58 01/12/24 05:58 01/12/24 05:58 01/12/24 05:58 Oxygen Delivery Method Room Air Weight: 218 lb 7.649 oz Body Mass Index (BMI) 30.4 Intake & Output: Intake and Output for Last 24 Hours 01/11/24 01/12/24 01/13/24 03:59 03:59 03:59 Intake Total 1410 / 1410 150 / 150 200 / 200 Output Total 2600 / 2600 3315 / 3315 550 / 550 Balance -1190 / -1190 -3165 / -3165 -350 / -350 Lab / Micro Data 01/11/24 07:53 01/12/24 07:24 Labs: Laboratory Results - last 24 hr 01/12/24 07:24: Sodium 137, Potassium 4.1, Chloride 110 H, Carbon Dioxide 22.0, Anion Gap 5, BUN 34 H, Creatinine 1.66 H, Estim Creat Clear Calc 46.84, Est GFR (MDRD) Af Amer 52 L, Est GFR (MDRD) Non-Af 43 L, BUN/Creatinine Ratio 20.5 H, Glucose 107 H, Calcium 9.3 Micro: Microbiology 01/09/24 15:50 Blood Culture (Wb) - Anticubital Right Blood Culture - Preliminary No growth in 48 hours. 01/09/24 12:30 Urine, Catheterized Urine Culture - Final Providencia stuartii 01/09/24 12:10 Mucosa - Nose SARS-CoV-2, Influenza & RSV (PCR) - Final Physical Exam Narrative General: Alert, Oriented x3, Cooperative, No apparent distress HEENT: Atraumatic, PERRLA, EOMI, Normocephalic Oral: Moist Mucosa Neck: Supple, No JVD Lungs: Diminished, Normal air movement, No rhonchi, No wheeze, No rales Cardiovascular: Regular rate, Regular Rhythm, Normal S1, Normal S2, No murmurs Abdomen: Soft, Non Tender, Non-Distended, No Hepato-splenomegaly Extremities: No edema, Capillary Refill Less than 3 Seconds Skin: No rashes, No breakdown Musculoskeletal: No Tenderness to Palpation of Joints or Extremities Neurological: No focal neurological deficits, motor and sensory exams at baseline Psych/Mental Status: Normal Affect, Appropriate Assessment & Plan Assessment/Plan (1) Acute UTI: PLAN: Plan 1. UTI due to Providencia stuartii/MUNA ? Complicated by the fact that he self catheterizes and is in a wheelchair ? Blood cultures so far negative, and urine cultures demonstrated Providencia st uartii ? Continue with Rocephin ? Currently on Flomax for BPH ? Renal ultrasound unremarkable ? Will monitor renal function, he does not have chronic kidney disease based on his previous GFR's ? PT/OT, disposition to possible rehab versus SNF, pending pre-CERT 2. Essential HTN ? Blood pressures are stable ? Will hold nephrotoxic agents ? Will monitor make adjustments as necessary 3. Anxiety/depression ? Stable ? Continue with his home medications DVT: Lovenox Charges/Coding Visit Charges Inpatient E&M: 15236 Subs Hosp L2
[2024-01-12] MEDS: Ceftriaxone 1 GM/50 ML BAG IV (10:41)
[2024-01-12] MEDS: amLODIPine 10 MG Tablet PO (10:43)
[2024-01-12] MEDS: Enoxaparin 40 MG/0.4 ML Syringe SC (10:43)
[2024-01-12] MEDS: Ferrous Sulfate 325 MG Tablet PO (10:43)
[2024-01-12] MEDS: Nystatin Powder 15gm Bottle 1 APPLIC TOPICAL (10:43)
[2024-01-12] MEDS: buPROPion (XL) 300 MG TABLET.XL PO (10:43)
[2024-01-12] MEDS: Menthol/Lanolin/Calamine/Znox 113 GM Tube 1 APPLIC TOPICAL (10:44)
--- NOTE | 2024-01-12 11:51 | CASEMGMT ---
Discharge Planning [facility] has obtained auth. SW updated. Doreen Salazar, Discharge Planning Asst.
--- NOTE | 2024-01-12 12:57 | TREXTCAR_ITS ---
Diet Diet Order/Speech Therapy: 01/09/24 13:37 Diet: Cardiac - Heart Healthy Food consistency:: Regular Liquid Consistency:: Regular/Thin Is pt able to select menu?: Yes Routine Orders/Code Status Routine Lab Work: CBC and BMP Code Status: Full Code Therapies Physical Therapy: Eval and Treat Occupational Therapy: Eval and Treat Problem/Diagnosis (1) Acute UTI: Status: Acute Code(s): N39.0 - Urinary tract infection, site not specified Plan 1. UTI due to Providencia stuartii/MUNA ? Complicated by the fact that he self catheterizes and is in a wheelchair ? Blood cultures so far negative, and urine cultures demonstrated Providencia stuartii ? Continue with Rocephin ? Currently on Flomax for BPH ? Renal ultrasound unremarkable ? Will monitor renal function, he does not have chronic kidney disease based on his previous GFR's ? PT/OT, disposition to possible rehab versus SNF, pending pre-CERT 2. Essential HTN ? Blood pressures are stable ? Will hold nephrotoxic agents ? Will monitor make adjustments as necessary 3. Anxiety/depression ? Stable ? Continue with his home medications DVT: Lovenox Allergies/Procedures Done in Hospital Allergies diltiazem [From Cardizem] Adverse Reaction (Verified 01/09/24 11:35) unknown losartan [From Hyzaar] Adverse Reaction (Verified 01/09/24 11:35) unknown metoprolol [From Lopressor] Adverse Reaction (Verified 01/09/24 11:35) unknown valsartan [From Diovan] Adverse Reaction (Verified 01/09/24 11:35) unknown Procedures: None Type of Care/Length of Stay Estimated LOS: Convalescent Care Less Than 30 days Type of Care Needed: Skilled Rehab Potential: Good Prognosis: Good Additional Orders/Day of Discharge Day of Discharge: 01/12/24 Discharge Plan Admission Admit Date/Time: 01/09/24 13:36 Attending Provider: Milan Carvalho Primary Care Provider: Marbella Zaidi Consulting Providers: Haroldo Wayne Discharge Orders/Prescriptions Prescriptions: New cefdinir 300 mg Capsule 300 mg PO Q12 5 Days Qty: 10 0RF Continued amlodipine 10 mg tablet 10 mg PO DAILY gabapentin 300 mg capsule 600 mg PO TID tamsulosin 0.4 mg capsule 0.4 mg PO QHS trazodone 50 mg tablet 50 mg PO QHS ferrous sulfate [FeroSul] 325 mg (65 mg iron) tablet 325 mg PO BIDCM bupropion HCl 300 mg tablet extended release 24 hr 300 mg PO DAILY melatonin 5 mg tablet 5 mg PO QHS meclizine 12.5 mg tablet 12.5 mg PO TID Patient Comments: COMIMG IN THE MAIL, PT HASNT RECEIVED YET. Held lisinopril 20 mg tablet 20 mg PO DAILY Hold Instructions: Resume on 01/15/24. Referrals / Follow Up: Marbella Zaidi PA [Primary Care Provider] - Disposition Disposition (needs filled in before D/C Order can be placed): Detention Facility
--- NOTE | 2024-01-12 12:59 | PCM.DC.SUM ---
Providers Date of Admission: 01/09/24 Primary Care Physician: AMANDO Robbins Reason For Visit: UTI Diagnosis Discharge Diagnosis (1) Acute UTI: Status: Acute Code(s): N39.0 - Urinary tract infection, site not specified Medications at Discharge Home Medications amlodipine 10 mg tablet 10 mg PO DAILY BLOOD PRESSURE 10/28/20 gabapentin 300 mg capsule 600 mg PO TID NEUROPATHY 03/29/22 tamsulosin 0.4 mg capsule 0.4 mg PO QHS PROSTATE 03/11/23 bupropion HCl 300 mg 24 hr tablet, extended release 300 mg PO DAILY DEPRESSION 09/28/23 ferrous sulfate 325 mg (65 mg iron) tablet (FeroSul) 325 mg PO BIDCM SUPPLEMENT 09/28/23 lisinopril 20 mg tablet 20 mg PO DAILY BLOOD PRESSURE 09/28/23 melatonin 5 mg tablet 5 mg PO QHS SLEEP 09/28/23 trazodone 50 mg tablet 50 mg PO QHS SLEEP 09/28/23 meclizine 12.5 mg tablet 12.5 mg PO TID 01/09/24 cefdinir 300 mg capsule 300 mg PO Q12 5 days #10 caps 01/12/24 Hospital Course Operations None Procedures None Summary of Care Provided Minutes Spent on Discharge: 36 Hospital Course: Per HPI: MIROSLAVA PALACIO, is a 73 M with past medical history of suspected urinary tract obstruction on self-catheterization at home, total hip replacement, numbness in both hands, right femoral fracture, suspected NSAID associated MUNA on CKD with chronic naproxen use who presents progressive fatigue and weakness for the last 1 month. Prior admission He was previously discharged on September 2023 with concerns of hematuria and dysuria. His urine analysis had showed positive nitrites and WBC, had a Dowling reinserted, and urine culture grew procidentia. He was initially started on Rocephin but was transitioned to ciprofloxacin. Today For the last few days he has noticed worsening fatigue and dizziness. He is generally wheelchair-bound because of chronic body aches and disability but was finding it more difficult for the last 5 days to mobilize. No fever but there was some associated dysuria without any hematuria. He specifically notes he was not able to maintain hygienic conditions while self-catheterization and suspects that led to his present urinary tract infection. No flank pain, no nausea or vomiting. No anorexia. Also has been noticing diarrhea for the last couple of days 1 or 2 bowel movements with loose stool, had incontinence episodes in the bed as he is not able to mobilize. Lives by himself but close friend's comes for support and helps him out with his medication Hospital Course: 1. UTI secondary to Providencia stuartii secondary to self cathing/MUNA?73-year-old male with a history of femur fracture and then spine surgery that is led to significant lower extremity weakness and incontinence presents to the hospital with fatigue and weakness. Found to have another UTI this time the culture grew Providencia stuartii treated with Rocephin. He did receive several days of Rocephin and transition to cefdinir on discharge to the long term. He has been having a self cath which is a recent issue for him and he thinks that he does struggle with the process and remaining sterile. As for his MUNA, with IV fluids his renal function has improved and is trending downwards currently on the day of discharge is 1.66. I discussed with him the need for SNF placement and he agreed. I discussed with him the plan for discharge today he expressed understanding the risk benefits of going to the long term and would like to go today. We will continue with Flomax for his BPH on discharge as well as cefdinir for another 5 days. He did have a renal ultrasound during this admission which was unremarkable. 2. Essential hypertension, anxiety, depression are all chronic medical conditions which complicate care. His home medications were continued where appropriate Physical Exam Narrative General: Alert, Oriented x3, Cooperative, No apparent distress HEENT: Atraumatic, PERRLA, EOMI, Normocephalic Oral: Moist Mucosa Neck: Supple, No JVD Lungs: Diminished, Normal air movement, No rhonchi, No wheeze, No rales Cardiovascular: Regular rate, Regular Rhythm, Normal S1, Normal S2, No murmurs Abdomen: Soft, Non Tender, Non-Distended, No Hepato-splenomegaly Extremities: No edema, Capillary Refill Less than 3 Seconds Skin: No rashes, No breakdown Musculoskeletal: No Tenderness to Palpation of Joints or Extremities Neurological: No focal neurological deficits, motor and sensory exams at baseline Psych/Mental Status: Normal Affect, Appropriate Weight / BMI Weight Weight: 218 lb 7.649 oz Body Mass Index (BMI) 30.4 ABG / Lab / Microbiology Data 01/11/24 07:53 01/12/24 07:24 Laboratory: Laboratory Results - last 24 hr 01/12/24 07:24: Sodium 137, Potassium 4.1, Chloride 110 H, Carbon Dioxide 22.0, Anion Gap 5, BUN 34 H, Creatinine 1.66 H, Estim Creat Clear Calc 46.84, Est GFR (MDRD) Af Amer 52 L, Est GFR (MDRD) Non-Af 43 L, BUN/Creatinine Ratio 20.5 H, Glucose 107 H, Calcium 9.3 Microbiology: Microbiology 01/09/24 15:50 Blood Culture (Wb) - Anticubital Right Blood Culture - Preliminary No growth in 48 hours. 01/09/24 12:30 Urine, Catheterized Urine Culture - Final Providencia stuartii 01/09/24 12:10 Mucosa - Nose SARS-CoV-2, Influenza & RSV (PCR) - Final Meaningful Use Info Meaningful Use Diagnoses (Choose all that apply): None applicable Discharge Plan Admission Admit Date/Time: 01/09/24 13:36 Attending Provider: Milan Carvalho Primary Care Provider: Marbella Zaidi Consulting Providers: Haroldo Wayne Discharge Orders/Prescriptions Prescriptions: New cefdinir 300 mg Capsule 300 mg PO Q12 5 Days Qty: 10 0RF Continued amlodipine 10 mg tablet 10 mg PO DAILY gabapentin 300 mg capsule 600 mg PO TID tamsulosin 0.4 mg capsule 0.4 mg PO QHS trazodone 50 mg tablet 50 mg PO QHS ferrous sulfate [FeroSul] 325 mg (65 mg iron) tablet 325 mg PO BIDCM bupropion HCl 300 mg tablet extended release 24 hr 300 mg PO DAILY melatonin 5 mg tablet 5 mg PO QHS meclizine 12.5 mg tablet 12.5 mg PO TID Patient Comments: COMIMG IN THE MAIL, PT HASNT RECEIVED YET. Held lisinopril 20 mg tablet 20 mg PO DAILY Hold Instructions: Resume on 01/15/24. Referrals / Follow Up: Marbella Zaidi PA [Primary Care Provider] - Disposition Disposition (needs filled in before D/C Order can be placed): [facility] Charges/Coding Visit Charges Inpatient E&M: 28922 Disch Hosp >30min
--- NOTE | 2024-01-12 14:14 | CASEMGMT ---
Social Work Precert has been obtained for pt to discharge to [facility]. Physician updated and pt is ready for dc today. 7000 exemption form completed in [facility]. DC phlebotomist lab assistant updated and to complete discharge. Disposition: [facility], skilled level of care under convalescent stay MARGARITA Payan
--- NOTE | 2024-01-12 14:21 | PHA.DC.MR.R ---
Pharmacy [place] Med Reconciliation Pharmacy Service has performed discharge medication reconciliation for this patient. The patient's discharge medication list was reviewed for discrepancies and discrepancies were resolved. Medications at Discharge Home Medications amlodipine 10 mg tablet 10 mg PO DAILY BLOOD PRESSURE 10/28/20 gabapentin 300 mg capsule 600 mg PO TID NEUROPATHY 03/29/22 tamsulosin 0.4 mg capsule 0.4 mg PO QHS PROSTATE 03/11/23 bupropion HCl 300 mg 24 hr tablet, extended release 300 mg PO DAILY DEPRESSION 09/28/23 ferrous sulfate 325 mg (65 mg iron) tablet (FeroSul) 325 mg PO BIDCM SUPPLEMENT 09/28/23 lisinopril 20 mg tablet 20 mg PO DAILY BLOOD PRESSURE 09/28/23 melatonin 5 mg tablet 5 mg PO QHS SLEEP 09/28/23 trazodone 50 mg tablet 50 mg PO QHS SLEEP 09/28/23 meclizine 12.5 mg tablet 12.5 mg PO TID 01/09/24 cefdinir 300 mg capsule 300 mg PO Q12 5 days #10 caps 01/12/24
[2024-01-12 15:02] VITALS: BP 133/88; PULSE 64; RESP 18; TEMP 36.8; O2SAT 98
--- NOTE | 2024-01-12 16:03 | CASEMGMT ---
Discharge Planning Discharge orders, signed med list, and transport time sent via [facility] to [facility]. Physicians will transport patient by wheelchair at 4p. Nursing, SW, and patient udpated. Patient to update friends/family. Doreen Salazar, Discharge Planning Asst.
== END 2024-01-12 16:08 | disposition skilled nursing facility (03) | DRG 699 ==
LOC: ED 13:29 → MS3 13:55
PROVIDERS: Physician Assistant; Admitting Provider Internal Medicine; Emergency Provider Emergency Medicine; PCP Physician Assistant; Visit Provider Family Medicine
DX: T83.518A Infection and inflammatory reaction due to other urinary catheter, initial encounter (principal); N39.0 Urinary tract infection, site not specified; E87.1 Hypo-osmolality and hyponatremia; T83.511A Infection and inflammatory reaction due to indwelling urethral catheter, initial encounter; F32.A Depression, unspecified; I10 Essential (primary) hypertension; M19.90 Unspecified osteoarthritis, unspecified site; F41.9 Anxiety disorder, unspecified; Z87.891 Personal history of nicotine dependence; Z99.3 Dependence on wheelchair; N40.0 Benign prostatic hyperplasia without lower urinary tract symptoms; B96.89 Other specified bacterial agents as the cause of diseases classified elsewhere
CPT/HCPCS: 36415; 71046; 76770; 80048; 80053; 81001; 83605; 83735; 84100; 84443; 84484; 85025; 85610; 87040; 87077; 87086; 87088; 87186; 87631; 93005; 97116; 97162; 97166; 97530; 99285; J7030; J7050; J7120; P9612; A4216

== ENCOUNTER → 2024-01-19 | Outpatient (REF) | payer MEDICARE, SELFPAY ==
[2024-01-19 07:21] LABS: Hematocrit 32.8 % (40-54); Hemoglobin 10.5 g/dL (13.0-16.5); Mean Corpuscular Hgb 28.7 pg (27.0-32.0); Mean Corpuscular Volume 89.6 fL (80-94); Mean Platelet Vol. 9.1 fl (6.2-12.0); Platelet Count 468 K/mm3 (150-450); RBC Distribution Width CV 15.7 % (11.6-14.6); RBC Distribution Width SD 50.7 fl (35.1-43.9); Red Blood Count 3.66 M/mm3 (4.6-6.2); White Blood Count 10.7 K/mm3 (4.4-11.0)
[2024-01-19 07:39] LABS: Anion Gap 4 (5-15); BUN 27 mg/dL (7-18); BUN/Creat Ratio 17.9 RATIO (10-20); Calcium,Total 9.1 mg/dL (8.5-10.1); Chloride 108 mmol/L (98-107); Creatinine, Serum 1.51 mg/dL (0.70-1.30); EST Glomerular Filtration Rate 48 mL/min (>60); Est Glom Filt Rate - Afr Amer 58 mL/min (>60); Glucose 99 mg/dL (74-106); Potassium 4.7 mmol/L (3.5-5.1); Sodium Level 136 mmol/L (136-145)
== END ==
LOC: OLS.WCC 04:00
PROVIDERS: PCP Physician Assistant; Referring Provider Family Medicine; Visit Provider Family Medicine
DX: Z79.899 Other long term (current) drug therapy (principal)
CPT/HCPCS: 36415; 80048; 85027

== ENCOUNTER 2024-02-15 20:23 | Emergency (ER) | payer MEDICARE, SELFPAY ==
[2024-02-15 20:24] VITALS: BP 140/104; PULSE 93; RESP 18; TEMP 36.3; O2SAT 95
[2024-02-15 21:07] LABS: Mucous, Urine 0 SEEN /hpf (<or=2+); Squamous Epithelial Cells - UA 0 SEEN /hpf (0-5)
--- NOTE | 2024-02-15 21:09 | EX.ED.DYSGE1 ---
HPI History of Present Illness Chief Complaint: Complaint Detail of Chief Complaint: Traumatic injury to the urethra with hematuria Informant: patient Onset/Context/Timing Onset: Hours (1.5 hours prior to presentation) Context: Sudden Onset Timing: Continuous Quality: Pain Location: Genitals Current Severity: Mild Maximum Severity: Moderate Worsened by: Tugging on Dowling Relieved by: Nothing Associated Symptoms Associated Symptoms: Hematuria Narrative Narrative: Patient is a 73-year-old male. He has a large prostate and developed obstructive nephropathy. He had a Dowling placed 5 weeks ago. Dowling was recently changed. He was in the shower. Apparently there were grooves on the seat that he was unaware of. Dowling became entangled in the grooves. This caused trauma to his prostates/penis. He had hematuria. He is still presently complaining of pain that he locates to the glans and scrotal area. He is not on anticoagulant or antithrombotic. Patient denies abdominal pain. Denies nausea, vomit or diarrhea. Dowling is in place because of obstruction. His primary care provider is Duong Mukherjee. Prior similar symptoms: No Recent Illness/[facility]: [facility] Medical History (Updated 02/15/24 @ 21:[address] Jd Murphy MD) Anxiety Anxiety Depression Essential (primary) hypertension GERD (gastroesophageal reflux disease) Hepatitis A History of fractured rib (08/12/20) Hypertension Osteoarthritis Right femoral fracture Vision loss of right eye Home Medications amlodipine 10 mg tablet 10 mg PO DAILY BLOOD PRESSURE 10/28/20 [History Last Taken 01/08/24] gabapentin 300 mg capsule 600 mg PO TID NEUROPATHY 03/29/22 [History Last Taken 01/08/24] tamsulosin 0.4 mg capsule 0.4 mg PO QHS PROSTATE 03/11/23 [History Last Taken 01/08/24] bupropion HCl 300 mg 24 hr tablet, extended release 300 mg PO DAILY DEPRESSION 09/28/23 [History Last Taken 01/08/24] ferrous sulfate 325 mg (65 mg iron) tablet (FeroSul) 325 mg PO BIDCM SUPPLEMENT 09/28/23 [History Last Taken 01/08/24] lisinopril 20 mg tablet 20 mg PO DAILY BLOOD PRESSURE 09/28/23 [History Last Taken 01/08/24] melatonin 5 mg tablet 5 mg PO QHS SLEEP 09/28/23 [History Last Taken 01/08/24] trazodone 50 mg tablet 50 mg PO QHS SLEEP 09/28/23 [History Last Taken 01/08/24] meclizine 12.5 mg tablet 12.5 mg PO TID 01/09/24 [History Last Taken Unknown] cefdinir 300 mg capsule 300 mg PO Q12 5 days #10 caps 01/12/24 [Rx Last Taken Unknown] cephalexin 500 mg capsule 500 mg PO Q8H #21 CAPSULES 02/15/24 [Rx Last Taken Unknown] Allergy/AdvReac Type Severity Reaction Status Date / Time diltiazem [From Cardizem] AdvReac unknown Verified 02/15/24 20:24 losartan [From Hyzaar] AdvReac unknown Verified 02/15/24 20:24 metoprolol [From Lopressor] AdvReac unknown Verified 02/15/24 20:24 valsartan [From Diovan] AdvReac unknown Verified 02/15/24 20:24 Family History Mother Heart disease Cancer breast Sister Heart disease Surgical History History of elbow surgery History of hip replacement History of lumbar laminectomy for spinal cord decompression History of shoulder surgery Social History (Updated 02/15/24 @ 21:[address] Jd Murphy MD) household members: spouse Smoking Status: Former smoker quit date: 11/22/92 pack-years: 46 alcohol intake: former year quit: 1991 ROS ROS ED Constitutional Constitutional ED: Denies chills, fever(s), subjective, sweats or weight loss Cardiovascular Cardiovascular: Denies palpitations Respiratory/Chest Respiratory/Chest: Denies dyspnea Genitourinary Genitourinary ED: Reports hematuria and other Details: Further detail HPI narrative Integumentary Denies Abrasions or rash Hematologic/Lymphatic Hematologic/Lymphatic: Reports systems reviewed and no addt'l complaints, except as documented and anemia; Denies easy bleeding or easy bruising EXAM Physical Exam Const Vital Signs: 02/15/24 20:24 Temperature 97.3 F L Temperature Source Temporal Pulse Rate 93 Respiratory Rate 18 Blood Pressure 140/104 H Blood Pressure Mean 116 Pulse Ox 95 Oxygen Delivery Method Room Air Positive well nourished and well developed General Appearance ED: well developed and NAD; Negative for cyanotic, diaphoretic or pallor HEENT Reports moist mucous membranes HEENT Narrative: Head is atraumatic normocephalic. Eyes PERRL and EOMs intact bilaterally General Eye ED: Negative for pale conjunctiva or scleral icterus Resp normal respiratory effort and clear to auscultation bilaterally Cardio regular rate, regular rhythm, S1 normal heart sound, S2 normal heart sound and no murmurs GI normal to inspection, nondistended, normoactive bowel sounds, non-tender, non-distended and no masses Narrative: Blood noted meatus. Dowling is in place. There is no lesions or trauma to the penis. Testes are centered bilaterally. There is no scrotal swelling or evidence infection. There is no louie lymphadenopathy. Back/Spine no CVA tenderness Extremity normal to inspection Neuro oriented x3 and CN's II-XII intact bilaterally Sensorium / Orientation: alert Psych mental status grossly normal Skin no rashes or lesions noted and no wounds General Skin Exam: Negative for jaundice or pallor MDM MDM MDM Narrative Medical decision making narrative: Patient having continued pain and this may be due to balloon partially in the prostate especially since he has not had any drainage since the incident. Will have nurse change Dowling. Will send urine for analysis. His urine does look turbid which may be due to the trauma and blood and not infection. History & Record Review Additional record(s) reviewed:: Prior outpatient record (Urinary retention. He has Dowling recently trach changed at [facility].) and Prior labs Lab Data Labs: Laboratory Results - last 24 hr 02/15/24 21:05 Urine Color Yellow Urine Clarity Cloudy Urine pH 6.5 Ur Specific [place] 1.015 Urine Protein 100 H Urine Glucose (UA) Normal Urine Ketones Negative Urine Occult Blood 250 H Urine Nitrite Negative Urine Bilirubin Negative Urine Urobilinogen Normal Ur Leukocyte Esterase 500 H Urine RBC > 100 SEEN Urine WBC >100 SEEN Ur Squamous Epith Cells 0 SEEN Urine Bacteria 3+ Urine Mucus 0 SEEN Treatment and Re-Evaluation :: Patient was started on cephalexin. Because he has chronic kidney disease he was prescribed cephalexin 500 mg 3 times daily for 7 days. He required renal adjusted dose. Discharge Plan Triage Chief Complaint: Complaint ED Provider: JeffreyJd Dx/Rx/DC Orders Clinical Impression: Complicated urinary tract infection, Essential (primary) hypertension, Displacement of Dowling catheter, Hematuria, History of obstructive nephropathy Instructions: ED Bladder Infection, Male (Adult) Prescriptions: New cephalexin [cephalexin] 500 mg capsule 500 mg PO Q8H Qty: 21 0RF No Action amlodipine 10 mg tablet 10 mg PO DAILY gabapentin 300 mg capsule 600 mg PO TID tamsulosin 0.4 mg capsule 0.4 mg PO QHS trazodone 50 mg tablet 50 mg PO QHS lisinopril 20 mg tablet 20 mg PO DAILY Hold Instructions: Resume on 01/15/24. ferrous sulfate [FeroSul] 325 mg (65 mg iron) tablet 325 mg PO BIDCM bupropion HCl 300 mg tablet extended release 24 hr 300 mg PO DAILY melatonin 5 mg tablet 5 mg PO QHS meclizine 12.5 mg tablet 12.5 mg PO TID Patient Comments: COMIMG IN THE MAIL, PT HASNT RECEIVED YET. cefdinir 300 mg Capsule 300 mg PO Q12 5 Days Qty: 10 0RF Primary Care Provider: Marbella Zaidi Referrals: Marbella Zaidi PA [Primary Care Provider] - 3-5 Days Disposition Disposition: Home, Self Care
[2024-02-15 21:10] LABS: Color, Urine Yellow (Yellow); Glucose, Dipstick Normal (Normal); Ketone-Dipstick Negative (Negative); Leukocyte Esterase-Dipstick 500 /ul (Negative); Nitrite-Dipstick Negative (Negative); Occult Blood-Urine 250 /ul (Negative); Protein-Dipstick 100 mg/dl (Negative); Specific Gravity, Urine 1.015 (1.002-1.030); Urine Bilirubin Dipstick Negative (Negative); Urine Clarity Cloudy (Clear); Urine Urobilinogen Normal (Normal); Urine pH 6.5 (5.0 - 8.0)
[2024-02-15 21:25] LABS: Bacteria 3+ /hpf (None Seen); Red Blood Cells-Urine > 100 SEEN /hpf (0-5); White Blood Cells >100 SEEN /hpf (0-5)
[2024-02-15] MEDS: Cephalexin 250 MG Capsule 500 MG PO (22:16)
== END 2024-02-15 22:23 | disposition home or self-care (01) ==
PROVIDERS: Emergency Provider Emergency Medicine; PCP Physician Assistant; Visit Provider Emergency Medicine
DX: N39.0 Urinary tract infection, site not specified (principal); N13.8 Other obstructive and reflux uropathy; R31.9 Hematuria, unspecified; Z87.891 Personal history of nicotine dependence; I10 Essential (primary) hypertension; T83.011A Breakdown (mechanical) of indwelling urethral catheter, initial encounter; Y66 Nonadministration of surgical and medical care; Y92.89 Other specified places as the place of occurrence of the external cause; Z79.899 Other long term (current) drug therapy; F32.A Depression, unspecified; B15.9 Hepatitis A without hepatic coma; Z96.649 Presence of unspecified artificial hip joint
CPT/HCPCS: 99282; 81001; 87077; 87086; 87088

== ENCOUNTER 2024-02-17 19:12 | Inpatient (IN) | payer MEDICARE, SELFPAY ==
[2024-02-17 19:14] VITALS: BP 126/79; PULSE 99; RESP 25; TEMP 37.6; O2SAT 93; BMI 30.4
--- NOTE | 2024-02-17 19:26 | EDS_ITS ---
HPI History of Present Illness Chief Complaint: Fatigue Detail of Chief Complaint: Fatigue and not feeling well Informant: patient Narrative Narrative: Patient presents to the emergency department complaint of fatigue and not feeling well for quite some time. Patient vague with answers and thinks that he has been ill for several weeks. He states that he hurts all over. He is not sure if he had a fever. Denies cough. Patient has indwelling Dowling catheter. Patient lives alone apparently in an apartment. [facility] Medical History (Updated 02/17/24 @ 22:[address] Yolanda Hammonds, ) Anxiety Anxiety Depression Essential (primary) hypertension GERD (gastroesophageal reflux disease) Hepatitis A History of fractured rib (08/12/20) Hypertension Osteoarthritis Right femoral fracture Vision loss of right eye Home Medications amlodipine 10 mg tablet 10 mg PO DAILY BLOOD PRESSURE 10/28/20 [History Last T aken 01/08/24] gabapentin 300 mg capsule 600 mg PO TID NEUROPATHY 03/29/22 [History Last Taken 01/08/24] tamsulosin 0.4 mg capsule 0.4 mg PO QHS PROSTATE 03/11/23 [History Last Taken 01/08/24] bupropion HCl 300 mg 24 hr tablet, extended release 300 mg PO DAILY DEPRESSION 09/28/23 [History Last Taken 01/08/24] ferrous sulfate 325 mg (65 mg iron) tablet (FeroSul) 325 mg PO BIDCM SUPPLEMENT 09/28/23 [History Last Taken 01/08/24] lisinopril 20 mg tablet 20 mg PO DAILY BLOOD PRESSURE 09/28/23 [History Last Taken 01/08/24] melatonin 5 mg tablet 5 mg PO QHS SLEEP 09/28/23 [History Last Taken 01/08/24] trazodone 50 mg tablet 50 mg PO QHS SLEEP 09/28/23 [History Last Taken 02/16/24] meclizine 12.5 mg tablet 12.5 mg PO TID 01/09/24 [History Last Taken Unknown] cephalexin 500 mg capsule 500 mg PO Q8H #21 CAPSULES 02/15/24 [Rx Last Taken Unknown] Allergy/AdvReac Type Severity Reaction Status Date / Time diltiazem [From Cardizem] AdvReac unknown Verified 02/15/24 20:24 losartan [From Hyzaar] AdvReac unknown Verified 02/15/24 20:24 metoprolol [From Lopressor] AdvReac unknown Verified 02/15/24 20:24 valsartan [From Diovan] AdvReac unknown Verified 02/15/24 20:24 Family History Mother Heart disease Cancer breast Sister Heart disease Surgical History History of elbow surgery History of hip replacement History of lumbar laminectomy for spinal cord decompression History of shoulder surgery Social History (Updated 02/15/24 @ 21:[address] Jd Murphy MD) household members: spouse Smoking Status: Former smoker quit date: 11/22/92 pack-years: 46 alcohol intake: former year quit: 1991 ROS ROS ED Review of Systems ROS Unobtainable: other Constitutional Constitutional ED: Reports lethargy; Denies chills, fever(s), sweats or weight loss Eyes Eyes: Denies blurry vision, change in vision or diplopia ENT ENT ED: Denies rhinorrhea or sore throat Cardiovascular Cardiovascular: Denies chest pain, orthopnea or racing heartbeat Respiratory/Chest Respiratory/Chest: Denies cough, dyspnea, dyspnea on exertion, orthopnea or sputum Gastrointestinal Gastrointestinal: Reports nausea and vomiting; Denies abdominal pain or diarrhea Genitourinary Genitourinary ED: Denies dysuria, hematuria or urinary frequency Musculoskeletal Musculoskeletal: Reports myalgias; Denies arthralgias, back pain or neck pain Integumentary Denies abscess, Abrasions or rash Neurologic Neurologic: Reports weakness; Denies headache(s) Psychiatric Psychiatric: Denies anxiety, depression or suicidal thoughts Endocrine Endocrinology: Denies polydipsia, polyphagia or polyuria Hematologic/Lymphatic Hematologic/Lymphatic: Denies easy bleeding, easy bruising or lymphadenopathy Allergic/Immunologic Allergic/Immunologic ED: Denies mouth swelling, tongue swelling or urticaria EXAM Physical Exam Const Vital Signs: 02/17/24 19:14 02/17/24 19:28 02/17/24 21:14 Temperature 99.7 F H 99.2 F H Temperature Source Temporal Oral Pulse Rate 99 62 Respiratory Rate 25 H 19 H Respiratory Effort Normal Non-Labored Respiratory Pattern Normal Blood Pressure 126/79 H 107/58 L Blood Pressure Mean 94 74 Pulse Ox 93 92 Oxygen Delivery Method Room Air Room Air 02/17/24 21:37 02/17/24 21:38 Temperature 99.2 F H 99.2 F H Temperature Source Oral Pulse Rate 88 88 Respiratory Rate 16 19 H Respiratory Effort Respiratory Pattern Blood Pressure 107/66 107/66 Blood Pressure Mean 79 79 Pulse Ox 92 92 Oxygen Delivery Method Room Air Positive well nourished and well developed General Appearance ED: well developed and NAD HEENT Reports TM's clear and moist mucous membranes normocephalic and atraumatic; Negative for trauma or tenderness Tympanic Membrane ED: Yes TM's clear Eyes PERRL and EOMs intact bilaterally General Eye ED: Negative for pale conjunctiva or scleral icterus Neck no lymphadenopathy, supple and no JVD General: Negative for tenderness Chest Wall inspection of chest normal and palpation of chest normal Chest: Negative for tenderness Resp normal respiratory effort and clear to auscultation bilaterally Effort and Inspection: Negative for respiratory distress or pain with movement Auscultation: Negative for rhonchi, wheezes or diminished lung sounds Cardio regular rate, regular rhythm, S1 normal heart sound, S2 normal heart sound and no murmurs Peripheral Pulses: pulses 2+ throughout GI normal to inspection, nondistended, normoactive bowel sounds, soft to palpation, non-tender, non-distended and no masses Narrative: Indwelling Dowling catheter in place with large amount of sediment and cloudy urine. Back/Spine no CVA tenderness and no thoracic nor lumbar tenderness Extremity normal to inspection General Extremety ED: Negative for edema General Extremity: Negative for edema Neuro oriented x3, CN's II-XII intact bilaterally, no sensory deficits noted and gait normal Sensorium / Orientation: awake, alert, oriented to person, oriented to place and oriented to time Motor Exam: strength 5/5 throughout and strength abnormal Psych mental status grossly normal Skin no rashes or lesions noted and no wounds MDM MDM MDM Narrative Medical decision making narrative: Patient presents with generalized weakness and low-grade fever. Has not been feeling well for some time and is for historian. IV line established on arrival. CBC with differential obtained showed a white count of 20.0 with hemoglobin 11 and platelet count of 281. Chemistries unremarkable. BUN was 24 creatinine 1.65. LFTs unremarkable. Urinalysis was positive for nitrites as well as greater than 100 WBCs and +1 bacteria. Urine culture sent. Patient was started on Zosyn IV. Lactate was normal at 0.7. Chest x-ray obtained showed increased reticular nodule interstitial thickening which may be consistent with a viral pneumonia. COVID flu and RSV testing was negative. Blood cultures ordered and pending urine culture ordered. Case will be discussed with hospitalist to evaluate patient for admission. Lab Data Attestation: I reviewed the patient's lab results. Labs: Laboratory Results - last 24 hr 02/17/24 02/17/24 19:29 19:45 WBC 20.0 H RBC 3.78 L Hgb 11.1 L Hct 33.9 L MCV 89.7 MCH 29.4 MCHC 32.7 RDW Std Deviation 53.6 H RDW Coeff of Matthew 16.2 H Plt Count 281 MPV 9.3 Immature Gran % (Auto) 0.600 Neut % (Auto) 88.1 H Lymph % (Auto) 3.9 L [place] % (Auto) 7.0 Eos % (Auto) 0.0 Baso % (Auto) 0.4 Absolute Neuts (auto) 17.6 H Absolute Lymphs (auto) 0.79 L Nucleated RBC % 0 Sodium 132 L Potassium 4.0 Chloride 102 Carbon Dioxide 22.0 Anion Gap 8 BUN 24 H Creatinine 1.65 H Estim Creat Clear Calc 47.08 Est GFR (MDRD) Af Amer 53 L Est GFR (MDRD) Non-Af 44 L BUN/Creatinine Ratio 14.5 Glucose 159 H Lactic Acid 0.7 Calcium 8.9 Total Bilirubin 0.50 AST 10 L ALT 11 L Alkaline Phosphatase 60 Troponin I High Sens 9 Total Protein 7.4 Albumin 3.0 L Globulin 4.4 H Albumin/Globulin Ratio 0.7 L Urine Color Yellow Urine Clarity Sl Cldy Urine pH 5.0 Ur Specific [place] 1.015 Urine Protein 100 H Urine Glucose (UA) Normal Urine Ketones 15 H Urine Occult Blood 250 H Urine Nitrite Positive H Urine Bilirubin Negative Urine Urobilinogen Normal Ur Leukocyte Esterase 500 H Urine RBC 10-25 SEEN Urine WBC >100 SEEN Ur Squamous Epith Cells 0 SEEN Urine Bacteria 1+ Urine Mucus 0 SEEN Radiography Diagnostic Testing: Clinical Impression(s) from Imaging Studies Chest X-Ray 02/17/24 19:38 IMPRESSION: Reticulonodular interstitial thickening in the lower lobes more pronounced on the right and right upper lobe possibly due to viral pneumonia Electronically Signed: Calixto Caraballo MD at 20:53 EDT Reading Location ID and State: [facility] / [place] Tel , Service support , 1 view chest x-ray obtained interpreted myself as increased interstitial markings both lungs. No pneumothorax. No edema. Radiology felt there were reticular nodular interstitial thickening in the lower lobes more pronounced on the right and right upper lobe possibly due to viral pneumonia. Discharge Plan Dx/Rx/DC Orders Clinical Impression: Acute UTI, Leukocytosis, Weakness Disposition Disposition: Acute Care [facility]
--- NOTE | 2024-02-17 19:38 | RAD_ITS ---
STUDY: X-RAY CHEST REASON FOR EXAM: Male, 73 years old. fever TECHNIQUE: AP portable COMPARISON: January 09, 2024 FINDINGS: Mild reticulonodular interstitial thickening in the lower lobes slightly more pronounced on the right and the right upper lobe possibly inflammatory.. There is no demonstrated pleural abnormality. Heart is enlarged. Normal mediastinum and dong. Normal visualized pulmonary arteries. Tortuous mildly calcified aortic arch and descending thoracic aorta. Normal visualized thoracic spine. Normal visualized ribs, clavicles. Right shoulder prosthesis is noted. There are degenerative changes of the left shoulder There is no demonstrated abnormality of the visualized soft tissue structures of the upper abdomen. RAD/Chest 1 View (Portable) IMPRESSION: Reticulonodular interstitial thickening in the lower lobes more pronounced on the right and right upper lobe possibly due to viral pneumonia Electronically Signed: Calixto Caraballo MD at 20:53 EDT ,
[2024-02-17 19:50] LABS: Absolute Lymphocyte Count 0.79 X10^3/uL (0.83-4.51); Absolute Neutrophil Count 17.6 X10^3/uL (2.0-7.7); Basophil# 0.08 X10^3/uL; Basophil% 0.4 % (0-1); Hematocrit 33.9 % (40-54); Hemoglobin 11.1 g/dL (13.0-16.5); Lymphocyte # 0.79 X10^3/ul (0.83-4.51); Lymphocyte % 3.9 % (19-41); Mean Corp Hgb Conc 32.7 g/dL (32-36); Mean Corpuscular Hgb 29.4 pg (27.0-32.0); Mean Corpuscular Volume 89.7 fL (80-94); Mean Platelet Vol. 9.3 fl (6.2-12.0); Monocyte# 1.41 X10^3/uL; NRBC Flagged by Analyzer 0 % (0-5); Neutrophil % 88.1 % (47-70); Platelet Count 281 K/mm3 (150-450); RBC Distribution Width CV 16.2 % (11.6-14.6); RBC Distribution Width SD 53.6 fl (35.1-43.9); Red Blood Count 3.78 M/mm3 (4.6-6.2)
[2024-02-17] MEDS: 0.9% Normal Saline (1000mL) 1,000 ML 150 ML IV (19:57)
[2024-02-17 20:01] LABS: Mucous, Urine 0 SEEN /hpf (<or=2+); Squamous Epithelial Cells - UA 0 SEEN /hpf (0-5)
[2024-02-17 20:07] LABS: ALB/GLOB Ratio 0.7 RATIO (0.9-2.4); AST(SGOT) 10 U/L (15-37); Alanine Aminotransfer ALT/SGPT 11 U/L (16-61); Alkaline Phosphatase 60 U/L (45-117); Anion Gap 8 (5-15); BUN 24 mg/dL (7-18); BUN/Creat Ratio 14.5 RATIO (10-20); Calcium,Total 8.9 mg/dL (8.5-10.1); Chloride 102 mmol/L (98-107); Creatinine, Serum 1.65 mg/dL (0.70-1.30); EST Glomerular Filtration Rate 44 mL/min (>60); Est Glom Filt Rate - Afr Amer 53 mL/min (>60); Estimated Creatinine Clearance 47.08 ml/min; Globulin 4.4 g/dL (2.2-4.2); Glucose 159 mg/dL (74-106); Protein, Total 7.4 g/dL (6.4-8.2); Sodium Level 132 mmol/L (136-145); Troponin-I HS 9 pg/mL (3.0-78.0)
[2024-02-17] MEDS: Ondansetron 4 MG/2 ML Vial IV (20:09)
[2024-02-17 20:16] LABS: Glucose, Dipstick Normal (Normal); Ketone-Dipstick 15 mg/dl (Negative); Leukocyte Esterase-Dipstick 500 /ul (Negative); Nitrite-Dipstick Positive (Negative); Occult Blood-Urine 250 /ul (Negative); Protein-Dipstick 100 mg/dl (Negative); Specific Gravity, Urine 1.015 (1.002-1.030); Urine Bilirubin Dipstick Negative (Negative); Urine Urobilinogen Normal (Normal)
[2024-02-17 20:17] LABS: Color, Urine Yellow (Yellow); Urine Clarity Sl Cldy (Clear)
[2024-02-17] MEDS: Piperacil/Tazobactam 4.5 GM in 0.9% Normal Saline (100mL MB+) 100 ML IV (20:26)
[2024-02-17 20:29] LABS: Lactic Acid 0.7 mmol/L (0.4-1.9)
[2024-02-17 20:41] LABS: Bacteria 1+ /hpf (None Seen); Red Blood Cells-Urine 10-25 SEEN /hpf (0-5); White Blood Cells >100 SEEN /hpf (0-5)
[2024-02-17 21:14] VITALS: BP 107/58; PULSE 62; RESP 19; TEMP 37.3; O2SAT 92
[2024-02-17 21:37] VITALS: BP 107/66; PULSE 88; RESP 16; TEMP 37.3; O2SAT 92
[2024-02-17 21:38] VITALS: BP 107/66; PULSE 88; RESP 19; TEMP 37.3; O2SAT 92
--- NOTE | 2024-02-17 22:01 | EKG12_ITS ---
Test Reason : WEAKNESS Blood Pressure : / mmHG Vent. Rate : 089 BPM Atrial Rate : 089 BPM P-R Int : 176 ms QRS Dur : 106 ms QT Int : 380 ms P-R-T Axes : 031 -63 007 degrees QTc Int : 462 ms Normal sinus rhythm Left anterior fascicular block Nonspecific T wave abnormality Prolonged QT Abnormal ECG Confirmed by Marcel Ortiz ([id number]), assistant production editor MIRIAM POLLARD ([id number]) on 02/21/2024 1:01:12 PM Referred By: DEVON Confirmed By:Marcel Ortiz
--- NOTE | 2024-02-17 22:26 | EX.ED.DYSGE1 ---
HPI History of Present Illness Chief Complaint: Fatigue [facility] Medical History (Updated 02/17/24 @ 22:[address] Yolanda Hammonds, DO) Anxiety Anxiety Depression Essential (primary) hypertension GERD (gastroesophageal reflux disease) Hepatitis A History of fractured rib (08/12/20) Hypertension Osteoarthritis Right femoral fracture Vision loss of right eye Home Medications amlodipine 10 mg tablet 10 mg PO DAILY BLOOD PRESSURE 10/28/20 [History Last Taken 01/08/24] gabapentin 300 mg capsule 600 mg PO TID NEUROPATHY 03/29/22 [History Last Taken 01/08/24] tamsulosin 0.4 mg capsule 0.4 mg PO QHS PROSTATE 03/11/23 [History Last Taken 01/08/24] bupropion HCl 300 mg 24 hr tablet, extended release 300 mg PO DAILY DEPRESSION 09/28/23 [History Last Taken 01/08/24] ferrous sulfate 325 mg (65 mg iron) tablet (FeroSul) 325 mg PO BIDCM SUPPLEMENT 09/28/23 [History Last Taken 01/08/24] lisinopril 20 mg tablet 20 mg PO DAILY BLOOD PRESSURE 09/28/23 [History Last Taken 01/08/24] melatonin 5 mg tablet 5 mg PO QHS SLEEP 09/28/23 [History Last Taken 01/08/24] trazodone 50 mg tablet 50 mg PO QHS SLEEP 09/28/23 [History Last Taken 02/16/24] meclizine 12.5 mg tablet 12.5 mg PO TID 01/09/24 [History Last Taken Unknown] cephalexin 500 mg capsule 500 mg PO Q8H #21 CAPSULES 02/15/24 [Rx Last Taken Unknown] Allergy/AdvReac Type Severity Reaction Status Date / Time diltiazem [From Cardizem] AdvReac unknown Verified 02/15/24 20:24 losartan [From Hyzaar] AdvReac unknown Verified 02/15/24 20:24 metoprolol [From Lopressor] AdvReac unknown Verified 02/15/24 20:24 valsartan [From Diovan] AdvReac unknown Verified 02/15/24 20:24 Family History Mother Heart disease Cancer breast Sister Heart disease Surgical History History of elbow surgery History of hip replacement History of lumbar laminectomy for spinal cord decompression History of shoulder surgery Social History (Updated 02/15/24 @ 21:[address] Jd Murphy MD) household members: spouse Smoking Status: Former smoker quit date: 11/22/92 pack-years: 46 alcohol intake: former year quit: 1991 EXAM Physical Exam Const Vital Signs: 02/17/24 19:14 02/17/24 19:28 02/17/24 21:14 Temperature 99.7 F H 99.2 F H Temperature Source Temporal Oral Pulse Rate 99 62 Respiratory Rate 25 H 19 H Respiratory Effort Normal Non-Labored Respiratory Pattern Normal Blood Pressure 126/79 H 107/58 L Blood Pressure Mean 94 74 Pulse Ox 93 92 Oxygen Delivery Method Room Air Room Air 02/17/24 21:37 02/17/24 21:38 Temperature 99.2 F H 99.2 F H Temperature Source Oral Pulse Rate 88 88 Respiratory Rate 16 19 H Respiratory Effort Respiratory Pattern Blood Pressure 107/66 107/66 Blood Pressure Mean 79 79 Pulse Ox 92 92 Oxygen Delivery Method Room Air MDM MDM Lab Data Attestation: I reviewed the patient's lab results. Labs: Laboratory Results - last 24 hr 02/17/24 02/17/24 19:29 19:45 WBC 20.0 H RBC 3.78 L Hgb 11.1 L Hct 33.9 L MCV 89.7 MCH 29.4 MCHC 32.7 RDW Std Deviation 53.6 H RDW Coeff of Matthew 16.2 H Plt Count 281 MPV 9.3 Immature Gran % (Auto) 0.600 Neut % (Auto) 88.1 H Lymph % (Auto) 3.9 L [place] % (Auto) 7.0 Eos % (Auto) 0.0 Baso % (Auto) 0.4 Absolute Neuts (auto) 17.6 H Absolute Lymphs (auto) 0.79 L Nucleated RBC % 0 Sodium 132 L Potassium 4.0 Chloride 102 Carbon Dioxide 22.0 Anion Gap 8 BUN 24 H Creatinine 1.65 H Estim Creat Clear Calc 47.08 Est GFR (MDRD) Af Amer 53 L Est GFR (MDRD) Non-Af 44 L BUN/Creatinine Ratio 14.5 Glucose 159 H Lactic Acid 0.7 Calcium 8.9 Total Bilirubin 0.50 AST 10 L ALT 11 L Alkaline Phosphatase 60 Troponin I High Sens 9 Total Protein 7.4 Albumin 3.0 L Globulin 4.4 H Albumin/Globulin Ratio 0.7 L Urine Color Yellow Urine Clarity Sl Cldy Urine pH 5.0 Ur Specific [place] 1.015 Urine Protein 100 H Urine Glucose (UA) Normal Urine Ketones 15 H Urine Occult Blood 250 H Urine Nitrite Positive H Urine Bilirubin Negative Urine Urobilinogen Normal Ur Leukocyte Esterase 500 H Urine RBC 10-25 SEEN Urine WBC >100 SEEN Ur Squamous Epith Cells 0 SEEN Urine Bacteria 1+ Urine Mucus 0 SEEN Radiography Diagnostic Testing: Clinical Impression(s) from Imaging Studies Chest X-Ray 02/17/24 19:38 IMPRESSION: Reticulonodular interstitial thickening in the lower lobes more pronounced on the right and right upper lobe possibly due to viral pneumonia Electronically Signed: Calixto Caraballo MD at 20:53 EDT Reading Location ID and State: [address] [place] [address] Tel , Service support , EKG Initial EKG: Attestation: I personally reviewed and interpreted this EKG as follows: Comments: Sinus rhythm with rate of 87 bpm with no acute ST segment changes Discharge Plan Dx/Rx/DC Orders Clinical Impression: Acute UTI, Leukocytosis, Weakness Disposition Disposition: Acute Care [facility]
--- NOTE | 2024-02-17 22:29 | HP.PCM.HOS_ITS ---
[facility] - General General Date of Admission: 02/17/24 Date of Service: 02/17/24 Chief Complaint: Fever and Malaise x 2 weeks. [facility] Narrative MIROSLAVA PERALTA, is a 73 M with a past medical history of essential hypertension, obesity; with BMI of 30.4 this admission, remote history of tobacco abuse (quit 1992), history of blindness in the right eye, BPPV; on as needed Antivert, history of spinal cord compression; status post lumbar left laminectomy for spinal decompression, GILA, depression with anxiety, history of hepatitis A, BPH; with chronic indwelling Dowling catheter due to obstructive uropathy, GERD and osteoarthritis; with history of hip replacement who presents to [facility] ER complaining of fever and malaise. Mr. Peralta reports his symptoms began approximately 2 weeks prior to admission with a gradual onset of progressively worsening fatigue and malaise with intermittent fevers. He also admits to cloudy sediment urine in his Dowling bag along with diffuse muscle aches, nausea and bilious emesis plus lethargy but he denies diarrhea or constipation. In the ER he was noted to have a urinalysis grossly positive for acute cystitis; with microscopic hematuria with corresponding leukocytosis of 20 present on admission (without clinical evidence of sepsis) complicated by chest x-ray positive for bilateral lower lobe infiltrates consistent with suspected viral pneumonia (with COVID-19, influenza and RSV testing negative present on admission) causing generalized weakness and he was then admitted to the general medical floor for ongoing care for stay that is expected to be greater than 48 hours. [facility] Medical History Anxiety Anxiety Depression Essential (primary) hypertension GERD (gastroesophageal reflux disease) Hepatitis A History of fractured rib (08/12/20) Hypertension Osteoarthritis Right femoral fracture Vision loss of right eye Home Medications amlodipine 10 mg tablet 10 mg PO DAILY BLOOD PRESSURE 10/28/20 [History Last Taken 01/08/24] gabapentin 300 mg capsule 600 mg PO TID NEUROPATHY 03/29/22 [History Last Taken 01/08/24] tamsulosin 0.4 mg capsule 0.4 mg PO QHS PROSTATE 03/11/23 [History Last Taken 01/08/24] bupropion HCl 300 mg 24 hr tablet, extended release 300 mg PO DAILY DEPRESSION 09/28/23 [History Last Taken 01/08/24] ferrous sulfate 325 mg (65 mg iron) tablet (FeroSul) 325 mg PO BIDCM SUPPLEMENT 09/28/23 [History Last Taken 01/08/24] lisinopril 20 mg tablet 20 mg PO DAILY BLOOD PRESSURE 09/28/23 [History Last Taken 01/08/24] melatonin 5 mg tablet 5 mg PO QHS SLEEP 09/28/23 [History Last Taken 01/08/24] trazodone 50 mg tablet 50 mg PO QHS SLEEP 09/28/23 [History Last Taken 02/16/24] meclizine 12.5 mg tablet 12.5 mg PO TID 01/09/24 [History Last Taken Unknown] cephalexin 500 mg capsule 500 mg PO Q8H #21 CAPSULES 02/15/24 [Rx Last Taken Unknown] Allergy/AdvReac Type Severity Reaction Status Date / Time diltiazem [From Cardizem] AdvReac unknown Verified 02/15/24 20:24 losartan [From Hyzaar] AdvReac unknown Verified 02/15/24 20:24 metoprolol [From Lopressor] AdvReac unknown Verified 02/15/24 20:24 valsartan [From Diovan] AdvReac unknown Verified 02/15/24 20:24 Family History Mother Heart disease Cancer breast Sister Heart disease Surgical History History of elbow surgery History of hip replacement History of lumbar laminectomy for spinal cord decompression History of shoulder surgery Social History household members: spouse Smoking Status: Former smoker quit date: 11/22/92 pack-years: 46 alcohol intake: former year quit: 1991 ROS ROS Narrative Review of systems: General: Patient admits to lethargy but denies fever or chills. HENT: Denies headache, denies stuffy nose, denies sore throat EYES: Denies changes in vision or discharge from eyes. Resp: Denies cough, denies shortness of breath Cardiac: Denies chest pain or palpitations. GI: Patient admits to nausea and vomiting with bilious emesis but denies abdominal pain as per HPI. : Denies changes in urination Extremity: Denies swelling Musculoskeletal: Feels somewhat generally weak and unwell with patient endorsing a history of myalgias but he denies arthralgias. Neuro: Patient admits to generalized weakness but he denies headache, paresthesias or focal neurologic weakness. Heme: Denies any bleeding or bruising Skin: Denies rashes Psychiatric: No complaints voiced related to uncontrolled depression or anxiety. Endocrine: No polyuria, polydipsia or polyphagia. The rest of the 14 point ROS was negative except for positives in HPI. Vital Signs Vital Signs Vital Signs: 02/17/24 19:14 02/17/24 19:28 02/17/24 21:14 Temperature 99.7 F H 99.2 F H Temperature Source Temporal Oral Pulse Rate 99 62 Respiratory Rate 25 H 19 H Respiratory Effort Normal Non-Labored Respiratory Pattern Normal Blood Pressure 126/79 H 107/58 L Blood Pressure Mean 94 74 Pulse Ox 93 92 Oxygen Delivery Method Room Air Room Air 02/17/24 21:37 02/17/24 21:38 Temperature 99.2 F H 99.2 F H Temperature Source Oral Pulse Rate 88 88 Respiratory Rate 16 19 H Respiratory Effort Respiratory Pattern Blood Pressure 107/66 107/66 Blood Pressure Mean 79 79 Pulse Ox 92 92 Oxygen Delivery Method Room Air Weight Weight: 218 lb 0.595 oz Body Mass Index (BMI) 30.4 Physical Exam Const alert, oriented x3, no apparent distress, average body habitus and healthy appearing General Appearance: cooperative HEENT normocephalic, head/scalp atraumatic, hearing grossly normal bilaterally and moist oral mucous membranes Eyes PERRL, EOMs intact bilaterally and conjunctivae normal Neck no lymphadenopathy and supple Resp normal respiratory effort, no retractions, no use of accessory muscles and clear to auscultation bilaterally Cardio regular rate and regular rhythm GI normal to inspection, nondistended, normoactive bowel sounds, soft to palpation, non-tender and non-distended Results Medical Records Data Attestation: I reviewed the patient's medical records Lab / Micro Data Attestation: I reviewed the patient's lab results. 02/17/24 19:29 02/17/24 19:29 Labs: Laboratory Results - last 24 hr 02/17/24 19:29: WBC 20.0 H, RBC 3.78 L, Hgb 11.1 L, Hct 33.9 L, MCV 89.7, MCH 29.4, MCHC 32.7, RDW Std Deviation 53.6 H, RDW Coeff of Matthew 16.2 H, Plt Count 281, MPV 9.3, Immature Gran % (Auto) 0.600, Neut % (Auto) 88.1 H, Lymph % (Auto) 3.9 L, Bee % (Auto) 7.0, Eos % (Auto) 0.0, Baso % (Auto) 0.4, Absolute Neuts (auto) 17.6 H, Absolute Lymphs (auto) 0.79 L, Nucleated RBC % 0, Sodium 132 L, Potassium 4.0, Chloride 102, Carbon Dioxide 22.0, Anion Gap 8, BUN 24 H, Cr eatinine 1.65 H, Estim Creat Clear Calc 47.08, Est GFR (MDRD) Af Amer 53 L, Est GFR (MDRD) Non-Af 44 L, BUN/Creatinine Ratio 14.5, Glucose 159 H, Lactic Acid 0.7, Calcium 8.9, Total Bilirubin 0.50, AST 10 L, ALT 11 L, Alkaline Phosphatase 60, Troponin I High Sens 9, Total Protein 7.4, Albumin 3.0 L, Globulin 4.4 H, Albumin/Globulin Ratio 0.7 L 02/17/24 19:45: Urine Color Yellow, Urine Clarity Sl Cldy, Urine pH 5.0, Ur Specific [place] 1.015, Urine Protein 100 H, Urine Glucose (UA) Normal, Urine Ketones 15 H, Urine Occult Blood 250 H, Urine Nitrite Positive H, Urine Bilirubin Negative, Urine Urobilinogen Normal, Ur Leukocyte Esterase 500 H, Urine RBC 10-25 SEEN, Urine WBC >100 SEEN, Ur Squamous Epith Cells 0 SEEN, Urine Bacteria 1+, Urine Mucus 0 SEEN Micro: Microbiology 02/17/24 19:29 Mucosa - Nose SARS-CoV-2, Influenza & RSV (PCR) - Final Imaging Radiology Impression Chest X-Ray 02/17/24 19:38 IMPRESSION: Reticulonodular interstitial thickening in the lower lobes more pronounced on the right and right upper lobe possibly due to viral pneumonia Electronically Signed: Calixto Caraballo MD at 20:53 EDT , Assessment & Plan Assessment/Plan (1) Complicated urinary tract infection: (2) Viral pneumonia: (3) Leukocytosis: QUALIFIERS: Leukocytosis type: unspecified Qualified Code(s): D72.829 - Elevated white blood cell count, unspecified (4) History of obstructive nephropathy: (5) Weakness: PLAN: Plan 1. Acute cystitis; with microscopic hematuria with corresponding leukocytosis of 20 present on admission due to complications related to chronic indwelling Dowling used to treat obstructive uropathy - Admit to general medical floor. Continue broad-spectrum antibiotics with IV Zosyn and await culture and sensitivity data. Change Dowling. Recheck CBC in a.m. to follow trend of response to treatment. Give Tylenol as needed pain or fever. 2. CXR positive for bilateral lower lobe infiltrates consistent with suspected viral pneumonia (with COVID-19, influenza and RSV testing negative present on admission) complicating #1 - Resume supportive care with mucolytic's and decongestants. Also give vitamin D3, vitamin C and zinc to help boost immune response and speed recovery. 3. Generalized weakness with fatigue and malaise arising from #1 & #2 - PT/OT and case management consult and treat on rounds in the a.m. with help appreciated in advance. 4. Essential hypertension - Hold scheduled antihypertensives until infections outlined above are neutralized. Give IV hydralazine as needed for systolic blood pressure greater than 160 mmHg. 5. Obesity; with BMI of 30.4 this admission - Weight loss will be recommended. Check TSH. 6. Remote history of tobacco abuse (quit 1992) - Noted. 7. History of blindness in the Right eye - Stable. 8. BPPV; on as needed Antivert - Give Antivert as needed. 9. History of spinal cord compression; status post lumbar left laminectomy for spinal decompression - Noted. 10. GILA - Resume iron supplementation. 11. Depression with anxiety - Continue home regimen plus give as needed Xanax for breakthrough symptoms. 12. History of hepatitis A - Noted. 13. GERD - Continue PPI. 14. Osteoarthritis; with history of hip replacement - Stable. Give Tylenol as needed. 15. DVT prophylaxis - Lovenox 40 mg subcu daily plus SCDs. Total time: Approximately 55 minutes. Charges/Coding Visit Charges Inpatient E&M: 66931 Init Hosp L2
[2024-02-17 22:38] VITALS: BP 112/90; PULSE 91; RESP 16; TEMP 37.1; O2SAT 94
[2024-02-18] VITALS: BP 117/54; PULSE 90; RESP 16; TEMP 37.2; O2SAT 94
[2024-02-18 01:55] VITALS: BMI 30.1
[2024-02-18 02:01] VITALS: BP 125/53; PULSE 90; RESP 18; TEMP 37.1; O2SAT 97
[2024-02-18] MEDS: 0.9% Normal Saline (1000mL) 1,000 ML 70 ML IV ×2 (02:48→20:51)
[2024-02-18] MEDS: MELATONIN 3 MG TABLET PO (02:48)
[2024-02-18] MEDS: traZODone 50 MG Tablet PO ×2 (02:48→20:50)
[2024-02-18 05:28] VITALS: BMI 30.2
[2024-02-18] MEDS: Meclizine 12.5 MG Tablet PO ×3 (06:51→20:50)
[2024-02-18] MEDS: Gabapentin 600 MG Tablet PO ×3 (06:52→20:51)
[2024-02-18] MEDS: Piperacil/Tazobactam 3.375 GM in 0.9% Normal Saline (50mL MB+) 50 ML IV ×3 (06:52→20:51)
[2024-02-18 07:53] LABS: Absolute Lymphocyte Count 0.95 X10^3/uL (0.83-4.51); Absolute Neutrophil Count 13.8 X10^3/uL (2.0-7.7); Basophil# 0.05 X10^3/uL; Basophil% 0.3 % (0-1); Eosinophil# 0.01 X10^3/uL; Eosinophils% 0.1 % (0-5); Hematocrit 31.4 % (40-54); Hemoglobin 10.1 g/dL (13.0-16.5); Lymphocyte # 0.95 X10^3/ul (0.83-4.51); Lymphocyte % 5.8 % (19-41); Mean Corp Hgb Conc 32.2 g/dL (32-36); Mean Corpuscular Hgb 29.2 pg (27.0-32.0); Mean Corpuscular Volume 90.8 fL (80-94); Mean Platelet Vol. 9.5 fl (6.2-12.0); Monocyte# 1.57 X10^3/uL; Monocyte% 9.5 % (0-10); NRBC Flagged by Analyzer 0 % (0-5); Neutrophil # 13.83 X10^3/uL (2.7-7.7); Neutrophil % 83.7 % (47-70); POSITIVE DIFFERENTIAL YES; Platelet Count 266 K/mm3 (150-450); RBC Distribution Width CV 16.3 % (11.6-14.6); RBC Distribution Width SD 54.7 fl (35.1-43.9); Red Blood Count 3.46 M/mm3 (4.6-6.2); White Blood Count 16.5 K/mm3 (4.4-11.0)
[2024-02-18 08:00] LABS: Differential Indicated SCAN CRITERIA MET
[2024-02-18 08:01] VITALS: BP 127/72; PULSE 92; RESP 18; TEMP 37.3; O2SAT 93
[2024-02-18] MEDS: Ferrous Sulfate 325 MG Tablet PO ×2 (08:08→16:40)
[2024-02-18] MEDS: Enoxaparin 40 MG/0.4 ML Syringe SC (08:08)
[2024-02-18] MEDS: buPROPion (XL) 300 MG TABLET.XL PO (08:09)
[2024-02-18 08:17] LABS: Anion Gap 8 (5-15); BUN 28 mg/dL (7-18); BUN/Creat Ratio 19.3 RATIO (10-20); Calcium,Total 8.6 mg/dL (8.5-10.1); Chloride 104 mmol/L (98-107); Creatinine, Serum 1.45 mg/dL (0.70-1.30); EST Glomerular Filtration Rate 51 mL/min (>60); Est Glom Filt Rate - Afr Amer 61 mL/min (>60); Estimated Creatinine Clearance 53.37 ml/min; Glucose 130 mg/dL (74-106); Magnesium 2.1 mg/dL (1.6-2.6); Phosphorus 1.9 mg/dL (2.5-4.9); Potassium 3.8 mmol/L (3.5-5.1); Sodium Level 134 mmol/L (136-145)
[2024-02-18 08:29] LABS: Differential Comment SCANNED
--- NOTE | 2024-02-18 09:00 | CASEMGMT ---
Discharge Planning Per CC, patient discharged home on 01/23/24. Doreen Salazar, Discharge Planning Asst.
[2024-02-18 09:45] VITALS: O2SAT 95
[2024-02-18 11:07] LABS: Pathologist Review Reviewed
--- NOTE | 2024-02-18 11:55 | PN.HOSP_ITS ---
Subjective Subjective Still tired but feels a little bit better Objective Data Objective Data Vital Signs: Vital Signs Temp Pulse Resp BP Pulse Ox O2 Del Method 99.1 F 92 18 127/72 H 95 Room Air 02/18/24 08:01 02/18/24 08:01 02/18/24 08:01 02/18/24 08:01 02/18/24 09:45 02/18/24 09:45 Oxygen Delivery Method Room Air Weight: 216 lb 4.375 oz Body Mass Index (BMI) 30.2 Intake & Output: Intake and Output for Last 24 Hours 02/17/24 02/18/24 02/19/24 03:59 03:59 03:59 Intake Total 1100 / 1100 50 / 50 Balance 1100 / 1100 50 / 50 Lab / Micro Data 02/18/24 06:25 02/18/24 06:25 Labs: Laboratory Results - last 24 hr 02/17/24 19:29: WBC 20.0 H, RBC 3.78 L, Hgb 11.1 L, Hct 33.9 L, MCV 89.7, MCH 29.4, MCHC 32.7, RDW Std Deviation 53.6 H, RDW Coeff of Matthew 16.2 H, Plt Count 281, MPV 9.3, Immature Gran % (Auto) 0.600, Neut % (Auto) 88.1 H, Lymph % (Auto) 3.9 L, [place] % (Auto) 7.0, Eos % (Auto) 0.0, Baso % (Auto) 0.4, Absolute Neuts (auto) 17.6 H, Absolute Lymphs (auto) 0.79 L, Nucleated RBC % 0, Sodium 132 L, Potassium 4.0, Chloride 102, Carbon Dioxide 22.0, Anion Gap 8, BUN 24 H, Creatinine 1.65 H, Estim Creat Clear Calc 47.08, Est GFR (MDRD) Af Amer 53 L, Est GFR (MDRD) Non-Af 44 L, BUN/Creatinine Ratio 14.5, Glucose 159 H, Lactic Acid 0.7, Calcium 8.9, Total Bilirubin 0.50, AST 10 L, ALT 11 L, Alkaline Phosphatase 60, Troponin I High Sens 9, Total Protein 7.4, Albumin 3.0 L, Globulin 4.4 H, Albumin/Globulin Ratio 0.7 L 02/17/24 19:45: Urine Color Yellow, Urine Clarity Sl Cldy, Urine pH 5.0, Ur Specific [place] 1.015, Urine Protein 100 H, Urine Glucose (UA) Normal, Urine Ketones 15 H, Urine Occult Blood 250 H, Urine Nitrite Positive H, Urine Bilirubin Negative, Urine Urobilinogen Normal, Ur Leukocyte Esterase 500 H, Urine RBC 10-25 SEEN, Urine WBC >100 SEEN, Ur Squamous Epith Cells 0 SEEN, Urine Bacteria 1+, Urine Mucus 0 SEEN 02/18/24 06:25: WBC 16.5 H, RBC 3.46 L, Hgb 10.1 L, Hct 31.4 L, MCV 90.8, MCH 29.2, MCHC 32.2, RDW Std Deviation 54.7 H, RDW Coeff of Matthew 16.3 H, Plt Count 266, MPV 9.5, Immature Gran % (Auto) 0.600, Neut % (Auto) 83.7 H, Lymph % (Auto) 5.8 L, [place] % (Auto) 9.5, Eos % (Auto) 0.1, Baso % (Auto) 0.3, Absolute Neuts (auto) 13.8 H, Absolute Lymphs (auto) 0.95, Nucleated RBC % 0, Differential Comment SCANNED, Diff Path Review Reviewed, Sodium 134 L, Potassium 3.8, Chloride 104, Carbon Dioxide 22.0, Anion Gap 8, BUN 28 H, Creatinine 1.45 H, Estim Creat Clear Calc 53.37, Est GFR (MDRD) Af Amer 61, Est GFR (MDRD) Non-Af 51 L, BUN/Creatinine Ratio 19.3, Glucose 130 H, Calcium 8.6, Phosphorus 1.9 L, Magnesium 2.1, TSH 1.00 Micro: Microbiology 02/17/24 19:29 Mucosa - Nose SARS-CoV-2, Influenza & RSV (PCR) - Final Radiography Diagnostic Testing: Radiology Impression Chest X-Ray 02/17/24 19:38 IMPRESSION: Reticulonodular interstitial thickening in the lower lobes more pronounced on the right and right upper lobe possibly due to viral pneumonia Electronically Signed: Calixto Caraballo MD at 20:53 EDT Reading Location ID and State: [facility] / [place] Tel , Service support , Physical Exam Narrative General: Alert, Oriented x3, Cooperative, No apparent distress HEENT: Atraumatic, PERRLA, EOMI, Normocephalic Oral: Moist Mucosa Neck: Supple, No JVD Lungs: Diminished, Normal air movement, No rhonchi, No wheeze, No rales Cardiovascular: Regular rate, Regular Rhythm, Normal S1, Normal S2, No murmurs Abdomen: Soft, Non Tender, Non-Distended, No Hepato-splenomegaly Extremities: No edema, Capillary Refill Less than 3 Seconds Skin: No rashes, No breakdown Musculoskeletal: No Tenderness to Palpation of Joints or Extremities Neurological: No focal neurological deficits, motor and sensory exams at baseline Psych/Mental Status: Normal Affect, Appropriate Assessment & Plan Assessment/Plan (1) Complicated urinary tract infection: (2) Viral pneumonia: (3) Leukocytosis: QUALIFIERS: Leukocytosis type: unspecified Qualified Code(s): D72.829 - Elevated white blood cell count, unspecified (4) History of obstructive nephropathy: (5) Weakness: PLAN: Plan 1. Acute UTI secondary to Pseudomonas/viral pneumonia ? Continue with Zosyn as his previous urine cultures a few days ago came back with a pansensitive Pseudomonas ? Repeat urine cultures are pending ? Complicated by the fact that he self catheterizes given his debility and living in a wheelchair due to cord compression status post lumbar left laminectomy ? He did have a chest x-ray on admission that showed signs of a viral pneumonia though COVID, flu, RSV were negative ? PT/OT 2. Essential HTN ? Blood pressure stable ? Can resume his home medications ? We will monitor make adjustments as necessary 3. Anxiety/depression ? Stable ? Continue with his home medications 4. Iron deficiency anemia ? Stable ? Continue with his iron supplement 5. GERD ?Stable ? Continue with PPI DVT: Lovenox Charges/Coding Visit Charges Inpatient E&M: 55722 Subs Hosp L2
[2024-02-18 14:00] VITALS: BP 117/66; PULSE 81; RESP 18; TEMP 36.4; O2SAT 96
--- NOTE | 2024-02-18 14:00 | CHAPLAIN ---
Type of Pastoral Visit _x__ Initial Visit ___ Follow-up Visit ___ On-call Visit ___ General Patient Visit ___ Spiritual Assessment ___ Family Conference ___ Bereavement ___ Rapid Response ___ Code Blue ___ Other (describe below) Pastoral Care Referral From _x__ Patient ___ Family ___ Nurse ___ Physician ___ Securities Teller ___ City Constable ___ Other (describe below) Sacrament/Intervention ___ Active listening ___ Anointing ___ Christianity ___ Bereavement ___ Communion ___ Ewelina exploration ___ ___ Life review _x__ Prayer ___ Reconciliation ___ Sacrament of Sick _x__ Supportive presence ___ Wedding ___ Other (describe below) Pastoral Comments patient was resting but opened his eyes to his name; pt says that he is really tired and hopes for rest but asks for a prayer; pt gives bump fist and says thank you so much for stopping in and praying; left to allow pt to sleep
[2024-02-18] MEDS: 0.9% Normal Saline (250mL Bag) 250 ML 15 ML IV (15:28)
--- NOTE | 2024-02-18 16:44 | CASEMGMT ---
IMMANUEL HOWE Assessment Face to Face with patient for initial transition planning/care coordination assessment. IMMANUEL HOWE introduced self and role at [facility], pt voices understanding. Pt is A&Ox4 and is resting comfortably in bed and is calm. Care providers, pharmacy, and demographics verified. Admitting dx: UTI, Leukocytosis, Generalized weakness PCP: Dejuan Specialists: Denies Preferred Pharmacy: [facility] Insurance: [facility] Prescription Benefit: Yes LNOK: Jocelin Man (), Ailin Villalta (Kirsty) Living Arrangements: Pt lives alone in a single bedroom apartment on the second level with a flight of steps to manage with railing. Pt denies issues. ADLs/IADLs: States ind Transportation: Friends DME: Pt states that he uses a walker. Denies all other DME uses or needs HHC/SNF: Denies history or needs Pt?s goal: home no needs Plan: PT Eval is pending. Pt states that he wishes to Dc home with no needs and states that he feels safe doing so. Pt refuses HHC, OP therapy at this time. CM to follow for safe DC from [facility]. Freeman Olivier RN, CM
[2024-02-18] MEDS: Acetaminophen 325 MG Tablet 650 MG PO (18:44)
[2024-02-18 19:51] VITALS: BP 99/56; PULSE 86; RESP 18; TEMP 36.7; O2SAT 97
[2024-02-18] MEDS: Tamsulosin HCl 0.4 MG Capsule PO (20:50)
[2024-02-18] MEDS: Lactobacillis Acidophilus 2 CAP PO (20:51)
[2024-02-19 01:50] VITALS: BP 99/62; PULSE 79; RESP 16; TEMP 37.1; O2SAT 98
[2024-02-19 06:00] VITALS: BMI 30.2
[2024-02-19 06:26] LABS: Absolute Neutrophil Count 6.2 X10^3/uL (2.0-7.7); Basophil# 0.07 X10^3/uL; Basophil% 0.8 % (0-1); Eosinophil# 0.33 X10^3/uL; Eosinophils% 3.8 % (0-5); Hematocrit 29.5 % (40-54); Hemoglobin 9.4 g/dL (13.0-16.5); Lymphocyte % 11.6 % (19-41); Mean Corp Hgb Conc 31.9 g/dL (32-36); Mean Platelet Vol. 9.5 fl (6.2-12.0); Monocyte# 0.99 X10^3/uL; Monocyte% 11.5 % (0-10); NRBC Flagged by Analyzer 0 % (0-5); Neutrophil # 6.17 X10^3/uL (2.7-7.7); Neutrophil % 71.7 % (47-70); Platelet Count 245 K/mm3 (150-450); RBC Distribution Width CV 16.3 % (11.6-14.6); RBC Distribution Width SD 55.1 fl (35.1-43.9); Red Blood Count 3.24 M/mm3 (4.6-6.2); White Blood Count 8.6 K/mm3 (4.4-11.0)
[2024-02-19] MEDS: Meclizine 12.5 MG Tablet PO ×3 (06:31→22:10)
[2024-02-19] MEDS: Piperacil/Tazobactam 3.375 GM in 0.9% Normal Saline (50mL MB+) 50 ML IV ×3 (06:32→22:10)
[2024-02-19] MEDS: Gabapentin 600 MG Tablet PO ×3 (06:32→22:10)
[2024-02-19 06:34] VITALS: BP 103/67; PULSE 81; RESP 16; TEMP 36.7; O2SAT 95
[2024-02-19 06:39] LABS: Anion Gap 4 (5-15); BUN 26 mg/dL (7-18); BUN/Creat Ratio 19.7 RATIO (10-20); Calcium,Total 8.4 mg/dL (8.5-10.1); Chloride 108 mmol/L (98-107); Creatinine, Serum 1.32 mg/dL (0.70-1.30); EST Glomerular Filtration Rate 56 mL/min (>60); Est Glom Filt Rate - Afr Amer 68 mL/min (>60); Estimated Creatinine Clearance 58.63 ml/min; Glucose 97 mg/dL (74-106); Potassium 4.1 mmol/L (3.5-5.1); Sodium Level 136 mmol/L (136-145)
[2024-02-19 09:24] VITALS: BP 119/80; PULSE 83; RESP 18; TEMP 36.8; O2SAT 96
[2024-02-19] MEDS: Ferrous Sulfate 325 MG Tablet PO ×2 (09:26→18:16)
[2024-02-19] MEDS: Lactobacillis Acidophilus 2 CAP PO ×2 (09:26→22:10)
[2024-02-19] MEDS: Enoxaparin 40 MG/0.4 ML Syringe SC (09:26)
[2024-02-19] MEDS: buPROPion (XL) 300 MG TABLET.XL PO (09:27)
[2024-02-19] MEDS: 0.9% Normal Saline (1000mL) 1,000 ML 70 ML IV (11:27)
--- NOTE | 2024-02-19 13:19 | PCM.PN.HOSP ---
Subjective Subjective Doing well, no issues overnight Objective Data Objective Data Vital Signs: Vital Signs Temp Pulse Resp BP Pulse Ox O2 Del Method 98.3 F 83 18 119/80 96 Room Air 02/19/24 09:24 02/19/24 09:24 02/19/24 09:24 02/19/24 09:24 02/19/24 09:24 02/19/24 09:24 Oxygen Delivery Method Room Air Weight: 216 lb 4.375 oz Body Mass Index (BMI) 30.2 Intake & Output: Intake and Output for Last 24 Hours 02/18/24 02/19/24 02/20/24 03:59 03:59 03:59 Intake Total 1100 / 1100 1400 / 1400 1900 / 1900 Output Total 1200 / 1200 1300 / 1300 Balance 1100 / 1100 200 / 200 600 / 600 Lab / Micro Data 02/19/24 05:57 02/19/24 05:57 Labs: Laboratory Results - last 24 hr 02/19/24 05:57: WBC 8.6, RBC 3.24 L, Hgb 9.4 L, Hct 29.5 L, MCV 91.0, MCH 29.0, MCHC 31.9 L, RDW Std Deviation 55.1 H, RDW Coeff of Matthew 16.3 H, Plt Count 245, MPV 9.5, Immature Gran % (Auto) 0.600, Neut % (Auto) 71.7 H, Lymph % (Auto) 11.6 L, [place] % (Auto) 11.5 H, Eos % (Auto) 3.8, Baso % (Auto) 0.8, Absolute Neuts (auto) 6.2, Absolute Lymphs (auto) 1.00, Nucleated RBC % 0, Sodium 136, Potassium 4.1, Chloride 108 H, Carbon Dioxide 24.0, Anion Gap 4 L, BUN 26 H, Creatinine 1.32 H, Estim Creat Clear Calc 58.63, Est GFR (MDRD) Af Amer 68, Est GFR (MDRD) Non-Af 56 L, BUN/Creatinine Ratio 19.7, Glucose 97, Calcium 8.4 L Micro: Microbiology 02/17/24 19:45 Urine Catheter - Catheter Urine Culture - Preliminary GNR Poss Pseudomonas sp GPC Poss Enterococcus sp 02/17/24 19:50 Blood Culture (Wb) - Left Forearm Blood Culture - Preliminary 03/28/24 19:29 Mucosa - Nose SARS-CoV-2, Influenza & RSV (PCR) - Final Physical Exam Narrative General: Alert, Oriented x3, Cooperative, No apparent distress HEENT: Atraumatic, PERRLA, EOMI, Normocephalic Oral: Moist Mucosa Neck: Supple, No JVD Lungs: Diminished, Normal air movement, No rhonchi, No wheeze, No rales Cardiovascular: Regular rate, Regular Rhythm, Normal S1, Normal S2, No murmurs Abdomen: Soft, Non Tender, Non-Distended, No Hepato-splenomegaly Extremities: No edema, Capillary Refill Less than 3 Seconds Skin: No rashes, No breakdown Musculoskeletal: No Tenderness to Palpation of Joints or Extremities Neurological: No focal neurological deficits, motor and sensory exams at baseline Psych/Mental Status: Normal Affect, Appropriate Assessment & Plan Assessment/Plan (1) Complicated urinary tract infection: (2) Viral pneumonia: (3) Leukocytosis: QUALIFIERS: Leukocytosis type: unspecified Qualified Code(s): D72.829 - Elevated white blood cell count, unspecified (4) History of obstructive nephropathy: (5) Weakness: PLAN: Plan 1. Acute UTI secondary to Pseudomonas/viral pneumonia ? Continue with Zosyn as his previous urine cultures a few days ago came back with a pansensitive Pseudomonas ? Repeat urine cultures are pending ? Complicated by the fact that he self catheterizes given his debility and living in a wheelchair due to cord compression status post lumbar left laminectomy ? He did have a chest x-ray on admission that showed signs of a viral pneumonia though COVID, flu, RSV were negative ? PT/OT, he is deciding between going home and remaining wheelchair-bound with home health care versus going back to SNF for more intensive physical therapy if possible. 2. Essential HTN ? Blood pressure stable ? Can resume his home medications ? We will monitor make adjustments as necessary 3. Anxiety/depression ? Stable ? Continue with his home medications 4. Iron deficiency anemia ? Stable ? Continue with his iron supplement 5. GERD ?Stable ? Continue with PPI DVT: Lovenox Charges/Coding Visit Charges Inpatient E&M: 88317 Subs Hosp L2
[2024-02-19 13:38] VITALS: BP 113/74; PULSE 84; RESP 18; TEMP 36.9; O2SAT 95
--- NOTE | 2024-02-19 18:15 | CASEMGMT ---
IMMANUEL HOWE NOTE: Per Dr Carvalho PN, pt considering SNF or Home w/resumption of HHC. IMMANUEL HOWE to room to discuss discharge planning. Inquired about JAVIER w/HHC, as initial RN CM note stated pt declined wanting HHC. Pt states HHC was just recently set up and he was supposed to start this week, but he ended up in the hospital before it started. He is not sure who set it up, but thinks it may have been his PCP, and he does not know name of [facility] agency. He stated his friend, Jocelin, may know and to call her. IMMANUEL HOWE placed call to Jocelin while in room w/pt. Jocelin states she received a call from a [facility] agency yesterday stating they were coming to do SOC w/pt yesterday, but she informed them pt was in the hospital. Jocelin does not remember the name of the [facility] and she also thinks PCP may have set it up, but she is not certain. Pt states he is considering going to SNF @ discharge, he is not sure yet, though. He stated when he went to a SNF in the past he ended up having a large bill d/t insurance not covering it all. Pt made aware of referral process and that insurance approval would be needed. Questions answered.He states if he decides to go to a SNF he is not sure where he would like to go. He was made aware a SNF list can be provided for him to review on Wednesday. He voices appreciation. Plan: TBD. Home w/HHC vs SNF. CM to f/u on Wednesday. Usama MCLEAN RN, CM.
[2024-02-19] MEDS: Acetaminophen 325 MG Tablet 650 MG PO (18:16)
[2024-02-19 18:18] VITALS: BP 126/76; PULSE 81; RESP 18; TEMP 36.9; O2SAT 96
[2024-02-19 21:41] VITALS: BP 114/62; PULSE 78; RESP 18; TEMP 37; O2SAT 96
[2024-02-19] MEDS: traZODone 50 MG Tablet PO (22:10)
[2024-02-19] MEDS: Tamsulosin HCl 0.4 MG Capsule PO (22:10)
[2024-02-20] MEDS: 0.9% Normal Saline (1000mL) 1,000 ML 70 ML IV ×2 (02:49→14:26)
[2024-02-20 03:30] VITALS: BP 137/86; PULSE 71; RESP 18; TEMP 36.6; O2SAT 97
[2024-02-20 04:51] VITALS: BMI 29.9
[2024-02-20 06:06] LABS: Anion Gap 4 (5-15); BUN 18 mg/dL (7-18); BUN/Creat Ratio 16.4 RATIO (10-20); Calcium,Total 8.3 mg/dL (8.5-10.1); Chloride 111 mmol/L (98-107); EST Glomerular Filtration Rate 70 mL/min (>60); Est Glom Filt Rate - Afr Amer 84 mL/min (>60); Estimated Creatinine Clearance 70.02 ml/min; Glucose 107 mg/dL (74-106); Potassium 3.6 mmol/L (3.5-5.1); Sodium Level 139 mmol/L (136-145)
[2024-02-20] MEDS: Meclizine 12.5 MG Tablet PO ×3 (06:16→21:56)
[2024-02-20] MEDS: Gabapentin 600 MG Tablet PO ×3 (06:16→21:56)
[2024-02-20] MEDS: Piperacil/Tazobactam 3.375 GM in 0.9% Normal Saline (50mL MB+) 50 ML IV ×3 (06:16→21:55)
[2024-02-20 07:54] VITALS: BP 125/84; PULSE 75; RESP 17; TEMP 36.8; O2SAT 96
[2024-02-20] MEDS: Lactobacillis Acidophilus 2 CAP PO ×2 (08:17→21:56)
[2024-02-20] MEDS: Enoxaparin 40 MG/0.4 ML Syringe SC (08:17)
[2024-02-20] MEDS: Ferrous Sulfate 325 MG Tablet PO ×2 (08:17→18:21)
[2024-02-20] MEDS: buPROPion (XL) 300 MG TABLET.XL PO (08:18)
--- NOTE | 2024-02-20 10:54 | PN.HOSP_ITS ---
Subjective Subjective Doing well, after our discussion yesterday he has elected to proceed with possible SNF placement Objective Data Objective Data Vital Signs: Vital Signs Temp Pulse Resp BP Pulse Ox O2 Del Method 98.3 F 75 17 125/84 H 96 Room Air 02/20/24 07:54 02/20/24 07:54 02/20/24 07:54 02/20/24 07:54 02/20/24 07:54 02/20/24 08:05 Oxygen Delivery Method Room Air Weight: 214 lb 1.102 oz Body Mass Index (BMI) 29.9 Intake & Output: Intake and Output for Last 24 Hours 02/19/24 02/20/24 02/21/24 03:59 03:59 03:59 Intake Total 1400 / 1400 3650 / 3650 Output Total 1200 / 1200 2750 / 2750 1300 / 1300 Balance 200 / 200 900 / 900 -1300 / -1300 Lab / Micro Data 02/19/24 05:57 02/20/24 05:00 Labs: Laboratory Results - last 24 hr 02/20/24 05:00: Sodium 139, Potassium 3.6, Chloride 111 H, Carbon Dioxide 24.0, Anion Gap 4 L, BUN 18, Creatinine 1.10, Estim Creat Clear Calc 70.02, Est GFR (MDRD) Af Amer 84, Est GFR (MDRD) Non-Af 70, BUN/Creatinine Ratio 16.4, Glucose 107 H, Calcium 8.3 L Micro: Microbiology 02/17/24 19:50 Blood Culture (Wb) - Left Forearm Blood Culture - Preliminary Coag Negative Staph 02/17/24 19:29 Blood Culture (Wb) - Right Hand Blood Culture - Preliminary No growth in 48 hours. 02/17/24 19:45 Urine Catheter - Catheter Urine Culture - Final Pseudomonas aeruginosa Enterococcus faecalis 02/17/24 19:29 Mucosa - Nose SARS-CoV-2, Influenza & RSV (PCR) - Final Physical Exam Narrative General: Alert, Oriented x3, Cooperative, No apparent distress HEENT: Atraumatic, PERRLA, EOMI, Normocephalic Oral: Moist Mucosa Neck: Supple, No JVD Lungs: Diminished, Normal air movement, No rhonchi, No wheeze, No rales Cardiovascular: Regular rate, Regular Rhythm, Normal S1, Normal S2, No murmurs Abdomen: Soft, Non Tender, Non-Distended, No Hepato-splenomegaly Extremities: No edema, Capillary Refill Less than 3 Seconds Skin: No rashes, No breakdown Musculoskeletal: No Tenderness to Palpation of Joints or Extremities Neurological: No focal neurological deficits, motor and sensory exams at baseline Psych/Mental Status: Normal Affect, Appropriate Assessment & Plan Assessment/Plan (1) Complicated urinary tract infection: (2) Viral pneumonia: (3) Leukocytosis: QUALIFIERS: Leukocytosis type: unspecified Qualified Code(s): D72.829 - Elevated white blood cell count, unspecified (4) History of obstructive nephropathy: (5) Weakness: PLAN: Plan 1. Acute UTI secondary to Pseudomonas/viral pneumonia ? Continue with Zosyn as his previous urine cultures a few days ago came back with a pansensitive Pseudomonas ? Repeat cultures with Pseudomonas and Enterococcus the Enterococcus is sensiti ve to ampicillin and Pseudomonas is sensitive to Zosyn ? Complicated by the fact that he self catheterizes given his debility and living in a wheelchair due to cord compression status post lumbar left laminectomy ? He did have a chest x-ray on admission that showed signs of a viral pneumonia though COVID, flu, RSV were negative ? PT/OT, he has decided to go to SNF, will start the pre-CERT process on Wednesday 2. Essential HTN ? Blood pressure stable ? Can resume his home medications ? We will monitor make adjustments as necessary 3. Anxiety/depression ? Stable ? Continue with his home medications 4. Iron deficiency anemia ? Stable ? Continue with his iron supplement 5. GERD ?Stable ? Continue with PPI DVT: Lovenox Charges/Coding Visit Charges Inpatient E&M: 11905 Subs Hosp L2
[2024-02-20 14:15] VITALS: BP 145/87; PULSE 82; RESP 18; TEMP 37.1; O2SAT 97
[2024-02-20] MEDS: Acetaminophen 325 MG Tablet 650 MG PO (14:27)
[2024-02-20] MEDS: 0.9% Normal Saline (250mL Bag) 250 ML 15 ML IV (14:31)
[2024-02-20 20:15] VITALS: BP 152/97; PULSE 74; RESP 18; TEMP 36.9; O2SAT 98
[2024-02-20] MEDS: Tamsulosin HCl 0.4 MG Capsule PO (21:56)
[2024-02-20] MEDS: traZODone 50 MG Tablet PO (21:56)
[2024-02-21] MEDS: MELATONIN 3 MG TABLET PO ×2 (00:29→22:18)
[2024-02-21 02:15] VITALS: BP 145/82; PULSE 76; RESP 16; TEMP 37; O2SAT 96
[2024-02-21] MEDS: 0.9% Normal Saline (1000mL) 1,000 ML 70 ML IV ×2 (04:38→17:52)
[2024-02-21 05:19] VITALS: BMI 29.9
[2024-02-21] MEDS: Piperacil/Tazobactam 3.375 GM in 0.9% Normal Saline (50mL MB+) 50 ML IV ×3 (06:34→22:18)
[2024-02-21] MEDS: Gabapentin 600 MG Tablet PO ×3 (06:34→22:18)
[2024-02-21] MEDS: Meclizine 12.5 MG Tablet PO ×3 (06:34→22:17)
[2024-02-21 07:04] LABS: Absolute Lymphocyte Count 1.09 X10^3/uL (0.83-4.51); Basophil# 0.08 X10^3/uL; Basophil% 1.3 % (0-1); Eosinophil# 0.37 X10^3/uL; Eosinophils% 6.1 % (0-5); Hematocrit 29.4 % (40-54); Hemoglobin 9.6 g/dL (13.0-16.5); Lymphocyte # 1.09 X10^3/ul (0.83-4.51); Lymphocyte % 17.9 % (19-41); Mean Corp Hgb Conc 32.7 g/dL (32-36); Mean Corpuscular Hgb 29.4 pg (27.0-32.0); Mean Corpuscular Volume 90.2 fL (80-94); Mean Platelet Vol. 8.8 fl (6.2-12.0); Monocyte# 0.56 X10^3/uL; Monocyte% 9.2 % (0-10); NRBC Flagged by Analyzer 0 % (0-5); Neutrophil # 3.97 X10^3/uL (2.7-7.7); Platelet Count 279 K/mm3 (150-450); RBC Distribution Width CV 15.9 % (11.6-14.6); RBC Distribution Width SD 53.6 fl (35.1-43.9); Red Blood Count 3.26 M/mm3 (4.6-6.2); White Blood Count 6.1 K/mm3 (4.4-11.0)
[2024-02-21 07:33] LABS: Anion Gap 5 (5-15); BUN 15 mg/dL (7-18); BUN/Creat Ratio 14.4 RATIO (10-20); Calcium,Total 8.6 mg/dL (8.5-10.1); Chloride 110 mmol/L (98-107); Creatinine, Serum 1.04 mg/dL (0.70-1.30); EST Glomerular Filtration Rate 74 mL/min (>60); Est Glom Filt Rate - Afr Amer 90 mL/min (>60); Estimated Creatinine Clearance 74.09 ml/min; Glucose 98 mg/dL (74-106); Potassium 3.5 mmol/L (3.5-5.1); Sodium Level 138 mmol/L (136-145)
[2024-02-21 07:58] VITALS: BP 130/86; PULSE 74; RESP 16; TEMP 36.7; O2SAT 98
[2024-02-21] MEDS: Ferrous Sulfate 325 MG Tablet PO ×2 (08:17→17:50)
[2024-02-21] MEDS: Acetaminophen 325 MG Tablet 650 MG PO ×2 (08:17→22:18)
[2024-02-21] MEDS: Enoxaparin 40 MG/0.4 ML Syringe SC (10:55)
[2024-02-21] MEDS: Lactobacillis Acidophilus 2 CAP PO ×2 (10:56→22:17)
[2024-02-21] MEDS: buPROPion (XL) 300 MG TABLET.XL PO (10:56)
--- NOTE | 2024-02-21 12:35 | PCM.PN.HOSP ---
Reason for Visit Reason for Visit: Diagnoses Elevated white blood cell count, unspecified (02/17/24) Viral pneumonia, unspecified (02/17/24) Urinary tract infection, site not specified (02/17/24) Weakness (02/17/24) Personal history of other diseases of urinary system (02/17/24) Subjective Subjective No acute events overnight. Patient seen at bedside this morning. Sitting up comfortably in bed, conversing normally, no acute distress. Did have some weakness when walking from the bathroom back to the bed this morning, similar to previous days. Otherwise feeling well, denies any fevers or chills. Denies any other acute pain or discomfort. No other acute concerns. Objective Data Objective Data Vital Signs: Vital Signs Temp Pulse Resp BP Pulse Ox O2 Del Method 98.0 F 74 16 130/86 H 98 Room Air 02/21/24 07:58 02/21/24 07:58 02/21/24 07:58 02/21/24 07:58 02/21/24 07:58 02/21/24 08:01 Oxygen Delivery Method Room Air Weight: 97.2 kg Body Mass Index (BMI) 29.9 Intake & Output: Intake and Output for Last 24 Hours 02/19/24 02/20/24 02/21/24 23:59 23:59 23:59 Intake Total 2550 / 2850 3183.42 / 3183.42 1644 / 1644 Output Total 2150 / 3150 3700 / 3700 1930 / 1930 Balance 400 / -300 -516.58 / -516.58 -286 / -286 Lab / Micro Data 02/21/24 06:37 02/21/24 06:37 Labs: Laboratory Results - last 24 hr 02/21/24 06:37: WBC 6.1, RBC 3.26 L, Hgb 9.6 L, Hct 29.4 L, MCV 90.2, MCH 29.4, MCHC 32.7, RDW Std Deviation 53.6 H, RDW Coeff of Matthew 15.9 H, Plt Count 279, MPV 8.8, Immature Gran % (Auto) 0.500, Neut % (Auto) 65.0, Lymph % (Auto) 17.9 L, [place] % (Auto) 9.2, Eos % (Auto) 6.1 H, Baso % (Auto) 1.3 H, Absolute Neuts (auto) 4.0, Absolute Lymphs (auto) 1.09, Nucleated RBC % 0, Sodium 138, Potassium 3.5, Chloride 110 H, Carbon Dioxide 23.0, Anion Gap 5, BUN 15, Creatinine 1.04, Estim Creat Clear Calc 74.09, Est GFR (MDRD) Af Amer 90, Est GFR (MDRD) Non-Af 74, BUN/Creatinine Ratio 14.4, Glucose 98, Calcium 8.6 Micro: Microbiology 02/17/24 19:50 Blood Culture (Wb) - Left Forearm Blood Culture - Preliminary Coag Negative Staph 02/17/24 19:29 Blood Culture (Wb) - Right Hand Blood Culture - Preliminary No growth in 48 hours. 02/17/24 19:45 Urine Catheter - Catheter Urine Culture - Final Pseudomonas aeruginosa Enterococcus faecalis 02/17/24 19:29 Mucosa - Nose SARS-CoV-2, Influenza & RSV (PCR) - Final Physical Exam Const alert, oriented x3 and no apparent distress Constitutional Narrative: Pleasant elderly male, obese, sitting up comfortably bed, conversing normally, no acute distress. General Appearance: cooperative and comfortable HEENT normocephalic, head/scalp atraumatic, hearing grossly normal bilaterally, nasal mucous membranes and turbinates normal and moist oral mucous membranes Eyes PERRL, EOMs intact bilaterally and conjunctivae normal Neck full ROM Chest inspection of chest normal Resp normal respiratory effort, normal air movement, no use of accessory muscles and clear to auscultation bilaterally Cardio regular rate, regular rhythm, no murmurs and peripheral pulses 2+ throughout GI normal to inspection, nondistended, normoactive bowel sounds, soft to palpation, non-tender and non-distended Back/Spine normal ROM Extremity normal to inspection, full ROM and no pedal edema Skin no rashes or lesions noted Neuro moves all extremities and no focal motor deficits Speech: speech normal Psych mental status grossly normal Assessment & Plan Assessment/Plan (1) Complicated urinary tract infection: (2) Weakness: (3) Viral pneumonia: PLAN: Plan Patient is a 73-year-old male who presented to [facility] ED on 02/17/2024 for with fevers and malaise. 1. Complicated UTI secondary to Pseudomonas, history of urinary retension with chronic Dowling catheter ? Presented with fevers and worsening weakness. Did not meet sepsis criteria on admission. UA infectious appearing, urine culture grew Pseudomonas sensitive to Zosyn and Enterococcus sensitive to ampicillin. ? Has had good improvement in symptoms with treatment with antibiotics. Will continue Zosyn for now and plan for 7-10 day course of antibiotics total. 2. Acute on chronic debility, wheelchair-bound at baseline, history of cord compression s/p lumbar left laminectomy ? PT/OT/case management following. Planning for SNF on discharge. Medically ready for discharge on 02/20, awaiting placement. 3. Suspected viral pneumonia ? Chest x-ray on admit showed signs of viral pneumonia. COVID/flu/RSV negative. Pneumonia symptoms have resolved and patient stable on room air. Chronic medical conditions: ? Hypertension: Home meds held on admission given acute infection as noted above. Now stable, home meds resumed on 02/19. Continue home amlodipine and lisinopril. ? BPH with obstructive symptoms: Continue home tamsulosin. ? Anxiety/depression/insomnia: Stable. Continue home bupropion, trazodone, melatonin. ? Iron deficiency anemia: Hemoglobin stable at baseline. Continue home iron supplement. ? Neuropathy: Continue home gabapentin. DVT prophylaxis: Lovenox CODE STATUS: Full code, verified Expected disposition: SNF, medically ready for discharge on 02/20, awaiting placement Total clinical time spent by myself addressing the patient's medical issues, reviewing all the data, and collaborating with patient's care team: 35 minutes. Charges/Coding Visit Charges Inpatient E&M: 74674 Subs Hosp L2
[2024-02-21 13:39] VITALS: BP 141/88; PULSE 82; RESP 18; TEMP 36.8; O2SAT 96
--- NOTE | 2024-02-21 14:27 | CASEMGMT ---
Discharge Planning A list of SNF providers including quality and resource use data and consistent with the patient's preferred geographic region, medical needs, and insurance network was created in [employer] Guide.? This list was provided to the SW. Doreen Salazar Discharge Planning Asst.
--- NOTE | 2024-02-21 16:55 | CASEMGMT ---
Social Work SW met with pt and introduced self and role of SW. Pt lives at home alone and has been using his wheelchair in the home to get around. Pt has been able to walk although very limited and states his goal is to be able to ambulate with a cane. Pt is requesting correction placement to obtain this goal. A list of SNF providers including quality and resource use data and consistent with the patient?s preferred geographic region, medical needs, and insurance network were provided from the [employer] Guide. Pt preferred provider is TCU. SW reviewed therapy notes, pt completed wheelchair training with Pt today. SW will speak with therapy regarding appropriateness of SNF placement prior to making referral. MARGARITA Carmona
[2024-02-21 17:49] VITALS: BP 144/95; PULSE 76; RESP 16; TEMP 36.7; O2SAT 97
[2024-02-21 21:42] VITALS: BP 155/93; PULSE 76; RESP 18; TEMP 36.9; O2SAT 96
[2024-02-21] MEDS: traZODone 50 MG Tablet PO (22:18)
[2024-02-21] MEDS: Tamsulosin HCl 0.4 MG Capsule PO (22:18)
[2024-02-22 03:45] VITALS: BP 144/81; PULSE 72; RESP 16; TEMP 36.4; O2SAT 97
[2024-02-22] MEDS: Piperacil/Tazobactam 3.375 GM in 0.9% Normal Saline (50mL MB+) 50 ML IV ×3 (05:10→22:07)
[2024-02-22] MEDS: Meclizine 12.5 MG Tablet PO ×3 (05:10→22:07)
[2024-02-22] MEDS: Gabapentin 600 MG Tablet PO ×3 (05:10→22:07)
[2024-02-22 07:42] VITALS: BP 138/98; PULSE 72; RESP 16; TEMP 36.4; O2SAT 96
[2024-02-22] MEDS: 0.9% Normal Saline (1000mL) 1,000 ML 70 ML IV ×2 (07:49→22:07)
[2024-02-22] MEDS: Lactobacillis Acidophilus 2 CAP PO ×2 (09:00→22:07)
[2024-02-22] MEDS: buPROPion (XL) 300 MG TABLET.XL PO (09:00)
[2024-02-22] MEDS: Ferrous Sulfate 325 MG Tablet PO ×2 (09:00→16:40)
[2024-02-22] MEDS: Enoxaparin 40 MG/0.4 ML Syringe SC (09:00)
--- NOTE | 2024-02-22 09:48 | CASEMGMT ---
Social Work SW spoke with therapy. OT did work with pt and states if pt's goal is to ambulate at home, he would benefit from SNF stay. If pt is planning to continue to be at a wheelchair level, he could return home. SW met with pt who confirms his goals of care are to ambulate with a cane and no longer need wheelchair. PT to see pt today and work with ambulation. SW will make referral to TCU as this is pt's preferred provider. MARGARITA Payan
--- NOTE | 2024-02-22 09:51 | CASEMGMT ---
Social Work SW spoke with pt regarding advance directives. Pt states his dgt Ailin Villalta is HCPOA however, pt states he does not know where the paperwork is. SW informed pt that SW can assist in completing documents. Pt does not express interest in this at this time. MARGARITA Carmona
--- NOTE | 2024-02-22 12:10 | PCM.PN.HOSP ---
Reason for Visit Reason for Visit: Diagnoses Elevated white blood cell count, unspecified (02/17/24) Viral pneumonia, unspecified (02/17/24) Urinary tract infection, site not specified (02/17/24) Weakness (02/17/24) Personal history of other diseases of urinary system (02/17/24) Subjective Subjective No acute events overnight. Patient seen at bedside this morning. Laying comfortably in bed, conversing normally, in no acute distress. Feels similar to yesterday. Was able to get up to the bedside chair with assistance earlier this morning and then back to bed without significant issue. No other acute concerns this morning. Objective Data Objective Data Vital Signs: Vital Signs Temp Pulse Resp BP Pulse Ox O2 Del Method 97.5 F L 72 16 138/98 H 96 Room Air 02/22/24 07:42 02/22/24 07:42 02/22/24 07:42 02/22/24 07:42 02/22/24 07:42 02/22/24 09:23 Oxygen Delivery Method Room Air Weight: 97.5 kg Body Mass Index (BMI) 30.0 Intake & Output: Intake and Output for Last 24 Hours 02/20/24 02/21/24 02/22/24 23:59 23:59 23:59 Intake Total 3183.42 / 3183.42 3120.33 / 3420.33 2176.5 / 2176.5 Output Total 3700 / 3700 2730 / 3580 3950 / 3950 Balance -516.58 / -516.58 390.33 / -159.67 -1773.5 / -1773.5 Lab / Micro Data 02/21/24 06:37 02/21/24 06:37 Micro: Microbiology 02/17/24 19:50 Blood Culture (Wb) - Left Forearm Blood Culture - Final Coag Negative Staph 02/17/24 19:29 Blood Culture (Wb) - Right Hand Blood Culture - Preliminary No growth in 48 hours. 02/17/24 19:45 Urine Catheter - Catheter Urine Culture - Final Pseudomonas aeruginosa Enterococcus faecalis 02/17/24 19:29 Mucosa - Nose SARS-CoV-2, Influenza & RSV (PCR) - Final Physical Exam Const alert, oriented x3 and no apparent distress Constitutional Narrative: Pleasant elderly male, obese, sitting up comfortably bed, conversing normally, no acute distress. General Appearance: cooperative and comfortable HEENT normocephalic, head/scalp atraumatic, hearing grossly normal bilaterally, nasal mucous membranes and turbinates normal and moist oral mucous membranes Eyes PERRL, EOMs intact bilaterally and conjunctivae normal Neck full ROM Chest inspection of chest normal Resp normal respiratory effort, normal air movement, no use of accessory muscles and clear to auscultation bilaterally Cardio regular rate, regular rhythm, no murmurs and peripheral pulses 2+ throughout GI normal to inspection, nondistended, normoactive bowel sounds, soft to palpation, non-tender and non-distended Back/Spine normal ROM Extremity normal to inspection, full ROM and no pedal edema Skin no rashes or lesions noted Neuro moves all extremities and no focal motor deficits Speech: speech normal Psych mental status grossly normal Assessment & Plan Assessment/Plan (1) Complicated urinary tract infection: (2) Weakness: (3) Viral pneumonia: PLAN: Plan Patient is a 73-year-old male who presented to [facility] ED on 02/17/2024 for with fevers and malaise. 1. Complicated UTI secondary to Pseudomonas, history of urinary retension with chronic Dowling catheter Presented with fevers and worsening weakness. Did not meet sepsis criteria on admission. UA infectious appearing, urine culture grew Pseudomonas sensitive to Zosyn and Enterococcus sensitive to ampicillin. ? Has had good improvement in symptoms with treatment with antibiotics. Will continue Zosyn for now and plan for 7-10 day course of antibiotics total. 2. Acute on chronic debility, wheelchair-bound at baseline, history of cord compression s/p lumbar left laminectomy ? PT/OT/case management following. Planning for SNF on discharge. Medically ready for discharge on 02/20, awaiting placement. 3. Suspected viral pneumonia ? Chest x-ray on admit showed signs of viral pneumonia. COVID/flu/RSV negative. Pneumonia symptoms have resolved and patient stable on room air. Chronic medical conditions: ? Hypertension: Home meds held on admission given acute infection as noted above. Now stable, home meds resumed on 02/19. Continue home amlodipine and lisinopril. ? BPH with obstructive symptoms: Continue home tamsulosin. ? Anxiety/depression/insomnia: Stable. Continue home bupropion, trazodone, melatonin. ? Iron deficiency anemia: Hemoglobin stable at baseline. Continue home iron supplement. ? Neuropathy: Continue home gabapentin. DVT prophylaxis: Lovenox CODE STATUS: Full code, verified Expected disposition: SNF, medically ready for discharge on 02/20, awaiting placement Total clinical time spent by myself addressing the patient's medical issues, reviewing all the data, and collaborating with patient's care team: 25 minutes. Charges/Coding Visit Charges Inpatient E&M: 72719 Subs Hosp L1
[2024-02-22] MEDS: 0.9% Saline Lock 10 ML Syringe IV (14:33)
[2024-02-22 14:45] VITALS: BP 154/93; PULSE 70; RESP 14; TEMP 37.3; O2SAT 96
[2024-02-22 22:00] VITALS: BP 141/96; PULSE 75; RESP 18; TEMP 36.6; O2SAT 97
[2024-02-22] MEDS: MELATONIN 3 MG TABLET PO (22:07)
[2024-02-22] MEDS: traZODone 50 MG Tablet PO (22:07)
[2024-02-22] MEDS: Tamsulosin HCl 0.4 MG Capsule PO (22:07)
[2024-02-22] MEDS: Acetaminophen 325 MG Tablet 650 MG PO (22:08)
[2024-02-23 05:00] VITALS: BP 146/99; PULSE 75; RESP 18; TEMP 36.8; O2SAT 95
[2024-02-23] MEDS: Meclizine 12.5 MG Tablet PO ×3 (05:43→21:34)
[2024-02-23] MEDS: Gabapentin 600 MG Tablet PO ×3 (05:43→21:34)
[2024-02-23] MEDS: Piperacil/Tazobactam 3.375 GM in 0.9% Normal Saline (50mL MB+) 50 ML IV ×3 (05:44→21:34)
[2024-02-23 06:00] VITALS: BMI 30.1
[2024-02-23 09:10] VITALS: BP 140/94; PULSE 87; RESP 18; TEMP 36.6; O2SAT 95
[2024-02-23] MEDS: Lactobacillis Acidophilus 2 CAP PO ×2 (09:12→21:34)
[2024-02-23] MEDS: Ferrous Sulfate 325 MG Tablet PO ×2 (09:12→16:37)
[2024-02-23] MEDS: buPROPion (XL) 300 MG TABLET.XL PO (09:12)
[2024-02-23] MEDS: Enoxaparin 40 MG/0.4 ML Syringe SC (09:12)
--- NOTE | 2024-02-23 10:07 | CASEMGMT ---
Addendum entered by Vicki Márquez 02/23/24 16:28: Social Work TCU has accepted pt and precert has been started. Pt updated and agreeable to dc plan. Plan: TCU, pending precert MARGARITA Payan Original Note: Social Work Pt has been seen by therapy and recommendations are for short term SNF prior to return home alone. Pt informs SW that he used wc at home due to convenience and pain but is motivated to start ambulating again and would like to regain independence. Referral made to TCU. Pt will await determination of acceptance. Pt will need precert prior to discharge. Plan: TCU, pending acceptance and precert MARGARITA Payan
[2024-02-23] MEDS: Lisinopril 10 MG Tablet PO (10:13)
[2024-02-23] MEDS: amLODIPine 5 MG Tablet PO (10:13)
[2024-02-23] MEDS: 0.9% Normal Saline (1000mL) 1,000 ML 70 ML IV (10:13)
--- NOTE | 2024-02-23 12:42 | PN.HOSP_ITS ---
Reason for Visit Reason for Visit: Diagnoses Elevated white blood cell count, unspecified (02/17/24) Viral pneumonia, unspecified (02/17/24) Urinary tract infection, site not specified (02/17/24) Weakness (02/17/24) Personal history of other diseases of urinary system (02/17/24) Subjective Subjective No acute events overnight. Patient seen at bedside this morning. Laying comfortably in bed, conversing normally, no acute distress. Appears similar to previous days. Does states that he worked with physical therapy earlier this morning, was able to walk with a walker to the nurses station and back to his room. [place] fatigued with this but otherwise tolerated without significant issue. No other acute concerns this morning. Objective Data Objective Data Vital Signs: Vital Signs Temp Pulse Resp BP Pulse Ox O2 Del Method 97.9 F 87 18 140/94 H 95 Room Air 02/23/24 09:10 02/23/24 09:10 02/23/24 09:10 02/23/24 09:10 02/23/24 09:10 02/23/24 09:10 Oxygen Delivery Method Room Air Weight: 97.6 kg Body Mass Index (BMI) 30.1 Intake & Output: Intake and Output for Last 24 Hours 02/21/24 02/22/24 02/23/24 23:59 23:59 23:59 Intake Total 3120.33 / 3420.33 3307.25 / 3307.25 2047 / 2047 Output Total 2730 / 3580 5800 / 5800 2300 / 2300 Balance 390.33 / -159.67 -2492.75 / -2492.75 -253 / -253 Lab / Micro Data 02/21/24 06:37 02/21/24 06:37 Micro: Microbiology 02/17/24 19:29 Blood Culture (Wb) - Right Hand Blood Culture - Final No growth in 5 days. 02/17/24 19:50 Blood Culture (Wb) - Left Forearm Blood Culture - Final Coag Negative Staph 02/17/24 19:45 Urine Catheter - Catheter Urine Culture - Final Pseudomonas aeruginosa Enterococcus faecalis 02/17/24 19:29 Mucosa - Nose SARS-CoV-2, Influenza & RSV (PCR) - Final Physical Exam Const alert, oriented x3 and no apparent distress Constitutional Narrative: Pleasant elderly male, obese, sitting up comfortably bed, conversing normally, no acute distress. General Appearance: cooperative and comfortable HEENT normocephalic, head/scalp atraumatic, hearing grossly normal bilaterally, nasal mucous membranes and turbinates normal and moist oral mucous membranes Eyes PERRL, EOMs intact bilaterally and conjunctivae normal Neck full ROM Chest inspection of chest normal Resp normal respiratory effort, normal air movement, no use of accessory muscles and clear to auscultation bilaterally Cardio regular rate, regular rhythm, no murmurs and peripheral pulses 2+ throughout GI normal to inspection, nondistended, normoactive bowel sounds, soft to palpation, non-tender and non-distended Back/Spine normal ROM Extremity normal to inspection, full ROM and no pedal edema Skin no rashes or lesions noted Neuro moves all extremities and no focal motor deficits Speech: speech normal Psych mental status grossly normal Assessment & Plan Assessment/Plan (1) Complicated urinary tract infection: (2) Weakness: (3) Viral pneumonia: PLAN: Plan Patient is a 73-year-old male who presented to [facility] ED on 02/17/2024 for with fevers and malaise. 1. Complicated UTI secondary to Pseudomonas, history of urinary retension with chronic Dowling catheter Presented with fevers and worsening weakness. Did not meet sepsis criteria on admission. UA infectious appearing, urine culture grew Pseudomonas sensitive to Zosyn and Enterococcus sensitive to ampicillin. ? Has had good improvement in symptoms with treatment with antibiotics. Will co ntinue Zosyn for now and plan for 7-10 day course of antibiotics total. 2. Acute on chronic debility, wheelchair-bound at baseline, history of cord compression s/p lumbar left laminectomy ? PT/OT/case management following. Planning for SNF on discharge. Medically ready for discharge on 02/20, awaiting placement. 3. Suspected viral pneumonia ? Chest x-ray on admit showed signs of viral pneumonia. COVID/flu/RSV negative. Pneumonia symptoms have resolved and patient stable on room air. Chronic medical conditions: ? Hypertension: Home meds held on admission given acute infection as noted above. Now stable, home meds resumed on 02/19. Continue home amlodipine and lisinopril. ? BPH with obstructive symptoms: Continue home tamsulosin. ? Anxiety/depression/insomnia: Stable. Continue home bupropion, trazodone, melatonin. ? Iron deficiency anemia: Hemoglobin stable at baseline. Continue home iron supplement. ? Neuropathy: Continue home gabapentin. DVT prophylaxis: Lovenox CODE STATUS: Full code, verified Expected disposition: SNF, medically ready for discharge on 02/20, awaiting j[employer] Total clinical time spent by myself addressing the patient's medical issues, reviewing all the data, and collaborating with patient's care team: 25 minutes. Charges/Coding Visit Charges Inpatient E&M: 38729 Subs Hosp L1
[2024-02-23] MEDS: Acetaminophen 325 MG Tablet 650 MG PO ×2 (13:14→21:34)
[2024-02-23 14:03] VITALS: BP 125/77; PULSE 88; RESP 18; TEMP 37.2; O2SAT 95
[2024-02-23 21:32] VITALS: BP 151/89; PULSE 78; RESP 18; TEMP 37; O2SAT 95
[2024-02-23] MEDS: MELATONIN 3 MG TABLET PO (21:34)
[2024-02-23] MEDS: Tamsulosin HCl 0.4 MG Capsule PO (21:34)
[2024-02-23] MEDS: traZODone 50 MG Tablet PO (21:34)
[2024-02-24] MEDS: 0.9% Normal Saline (1000mL) 1,000 ML 70 ML IV (00:53)
[2024-02-24 05:15] VITALS: BP 160/91; PULSE 72; RESP 18; TEMP 36.6; O2SAT 94
[2024-02-24] MEDS: Gabapentin 600 MG Tablet PO (05:35)
[2024-02-24] MEDS: Piperacil/Tazobactam 3.375 GM in 0.9% Normal Saline (50mL MB+) 50 ML IV (05:35)
[2024-02-24] MEDS: Meclizine 12.5 MG Tablet PO (05:35)
[2024-02-24 06:00] VITALS: BMI 30.1
[2024-02-24 07:12] LABS: Hematocrit 29.8 % (40-54); Hemoglobin 9.7 g/dL (13.0-16.5); Mean Corp Hgb Conc 32.6 g/dL (32-36); Mean Corpuscular Hgb 29.6 pg (27.0-32.0); Mean Corpuscular Volume 90.9 fL (80-94); Mean Platelet Vol. 8.9 fl (6.2-12.0); Platelet Count 342 K/mm3 (150-450); RBC Distribution Width CV 16.4 % (11.6-14.6); RBC Distribution Width SD 54.5 fl (35.1-43.9); Red Blood Count 3.28 M/mm3 (4.6-6.2); White Blood Count 6.3 K/mm3 (4.4-11.0)
[2024-02-24 08:05] LABS: Anion Gap 7 (5-15); BUN 15 mg/dL (7-18); BUN/Creat Ratio 13.5 RATIO (10-20); Calcium,Total 8.4 mg/dL (8.5-10.1); Chloride 112 mmol/L (98-107); Creatinine, Serum 1.11 mg/dL (0.70-1.30); EST Glomerular Filtration Rate 69 mL/min (>60); Est Glom Filt Rate - Afr Amer 83 mL/min (>60); Estimated Creatinine Clearance 69.55 ml/min; Glucose 96 mg/dL (74-106); Potassium 3.6 mmol/L (3.5-5.1); Sodium Level 141 mmol/L (136-145)
[2024-02-24 08:30] VITALS: BP 151/94; PULSE 85; RESP 15; TEMP 36.2; O2SAT 96
[2024-02-24] MEDS: Lactobacillis Acidophilus 2 CAP PO (08:56)
[2024-02-24] MEDS: Lisinopril 20 MG Tablet PO (08:56)
[2024-02-24] MEDS: Enoxaparin 40 MG/0.4 ML Syringe SC (08:56)
[2024-02-24] MEDS: Ferrous Sulfate 325 MG Tablet PO (08:56)
[2024-02-24] MEDS: buPROPion (XL) 300 MG TABLET.XL PO (08:56)
[2024-02-24] MEDS: amLODIPine 10 MG Tablet PO (08:57)
--- NOTE | 2024-02-24 08:59 | CASEMGMT ---
Addendum entered by Vicki Márquez 02/24/24 10:12: Social Work Per physician, pt is ready for dc today. DC orders faxed to TCU and TCU notified of dc. Pt is aware. Disposition: TCU, skilled level of care MARGARITA Payan Original Note: Social Work Precert has been obtained for pt to go to TCU. Physician and pt updated. Plan: TCU, when medically ready MARGARITA Payan
--- NOTE | 2024-02-24 09:22 | TREXTCAR_ITS ---
Diet Diet Order/Speech Therapy: 02/18/24 02:12 Diet: Cardiac - Heart Healthy Food consistency:: Regular Liquid Consistency:: Regular/Thin Is pt able to select menu?: Yes Routine Orders/Code Status Code Status: Full Code Therapies Weight Bearing: Full weight bearing Physical Therapy: Eval and Treat Occupational Therapy: Eval and Treat Problem/Diagnosis (1) Complicated urinary tract infection: Status: Inactive Code(s): N39.0 - Urinary tract infection, site not specified (2) Weakness: Status: Acute Code(s): R53.1 - Weakness (3) Viral pneumonia: Status: Acute Code(s): J12.9 - Viral pneumonia, unspecified Plan Patient is a 73-year-old male who presented to [facility] ED on 02/17/2024 for with fevers and malaise. Hospital course as noted below. Patient discharged to SNF in stable condition on 02/23. 1. Complicated UTI secondary to Pseudomonas, history of urinary retention with chronic Dowlnig catheter Presented with fevers and worsening weakness. Did not meet sepsis criteria on admission. UA infectious appearing, urine culture grew Pseudomonas sensitive to Zosyn and Enterococcus sensitive to ampicillin. ? Had great improvement in symptoms with treatment with antibiotics. Completed 7-day course of Zosyn while inpatient. Dowling catheter continued on discharge. 2. Acute on chronic debility, wheelchair-bound at baseline, history of cord compression s/p lumbar left laminectomy ? PT/OT/case management followed. Was medically ready for discharge on 02/20, discharged to SNF ([facility]) in stable condition on 02/23. 3. Suspected viral pneumonia ? Chest x-ray on admit showed signs of viral pneumonia. COVID/flu/RSV negative. Pneumonia symptoms resolved while patient and patient remained stable on room air throughout the hospitalization. Chronic medical conditions: ? Hypertension: Home meds held on admission given acute infection as noted above. Resumed on 02/19. Continue home amlodipine and lisinopril. ? BPH with obstructive symptoms: Continue home tamsulosin. ? Anxiety/depression/insomnia: Stable. Continue home bupropion, trazodone, melatonin. ? Iron deficiency anemia: Hemoglobin stable at baseline. Continue home iron supplement. ? Neuropathy: Continue home gabapentin. Total clinical time spent by myself addressing the patient's medical issues, reviewing all the data, and collaborating with patient's care team: 35 minutes. Allergies/Procedures Done in Hospital Allergies diltiazem [From Cardizem] Adverse Reaction (Verified 02/15/24 20:24) unknown losartan [From Hyzaar] Adverse Reaction (Verified 02/15/24 20:24) unknown metoprolol [From Lopressor] Adverse Reaction (Verified 02/15/24 20:24) unknown valsartan [From Diovan] Adverse Reaction (Verified 02/15/24 20:24) unknown Procedures: EKG and - (Chest x-ray) Type of Care/Length of Stay Estimated LOS: Convalescent Care Less Than 30 days Type of Care Needed: Skilled Rehab Potential: Fair Prognosis: Fair Additional Orders/Day of Discharge H&P will serve as current which was dated: 02/17/24 Day of Discharge: 02/24/24 Discharge Plan Admission Admit Date/Time: 02/17/24 22:33 Primary Reason for Your Visit: Fever and malaise, complicated UTI Attending Provider: Jamie Leiva Primary Care Provider: Marbella Zaidi Consulting Providers: Damaso Payne; Milan Carvalho Discharge Orders/Prescriptions Prescriptions: Continued amlodipine 10 mg tablet 10 mg PO DAILY gabapentin 300 mg capsule 600 mg PO TID tamsulosin 0.4 mg capsule 0.4 mg PO QHS trazodone 50 mg tablet 50 mg PO QHS Patient Comments: pt req an inccrease in dosage because 50mg isnt working for me lisinopril 20 mg tablet 20 mg PO DAILY Hold Instructions: Resume on 01/15/24. bupropion HCl 300 mg tablet extended release 24 hr 300 mg PO DAILY melatonin 5 mg tablet 5 mg PO QHS meclizine 12.5 mg tablet 12.5 mg PO TID Changed ferrous sulfate [FeroSul] 325 mg (65 mg iron) tablet 325 mg PO DAILY 30 Days Qty: 0 0RF Discontinued cephalexin [cephalexin] 500 mg capsule 500 mg PO Q8H Qty: 21 0RF Referrals / Follow Up: Marbella Zaidi PA [Primary Care Provider] - Disposition Disposition (needs filled in before D/C Order can be placed): Senior Living Facility
--- NOTE | 2024-02-24 09:27 | DS.PCM_ITS ---
Providers Date of Admission: 02/17/24 Date of Discharge: 02/24/24 Primary Care Physician: AMANDO Robbins Reason For Visit: UTI, LEUKOCYTOSIS, GENERALIZED WEAKNESS Diagnosis Discharge Diagnosis (1) Complicated urinary tract infection: Status: Inactive Code(s): N39.0 - Urinary tract infection, site not specified (2) Weakness: Status: Acute Code(s): R53.1 - Weakness (3) Viral pneumonia: Status: Acute Code(s): J12.9 - Viral pneumonia, unspecified Medications at Discharge Home Medications amlodipine 10 mg tablet 10 mg PO DAILY BLOOD PRESSURE 10/28/20 gabapentin 300 mg capsule 600 mg PO TID NEUROPATHY 03/29/22 tamsulosin 0.4 mg capsule 0.4 mg PO QHS PROSTATE 03/11/23 bupropion HCl 300 mg 24 hr tablet, extended release 300 mg PO DAILY DEPRESSION 09/28/23 lisinopril 20 mg tablet 20 mg PO DAILY BLOOD PRESSURE 09/28/23 melatonin 5 mg tablet 5 mg PO QHS SLEEP 09/28/23 trazodone 50 mg tablet 50 mg PO QHS SLEEP 09/28/23 meclizine 12.5 mg tablet 12.5 mg PO TID 01/09/24 ferrous sulfate 325 mg (65 mg iron) tablet (FeroSul) 325 mg PO DAILY SUPPLEMENT 30 days #0 tabs 02/24/24 Hospital Course Operations None Procedures EKG and - (Chest x-ray) Summary of Care Provided Minutes Spent on Discharge: 35 Hospital Course: Patient is a 73-year-old male who presented to [facility] ED on 02/17/2024 for with fevers and malaise. Hospital course as noted below. Patient discharged to SNF in stable condition on 02/23. 1. Complicated UTI secondary to Pseudomonas, history of urinary retention with chronic Dowling catheter Presented with fevers and worsening weakness. Did not meet sepsis criteria on admission. UA infectious appearing, urine culture grew Pseudomonas sensitive to Zosyn and Enterococcus sensitive to ampicillin. ? Had great improvement in symptoms with treatment with antibiotics. Completed 7-day course of Zosyn while inpatient. Dowling catheter continued on discharge. 2. Acute on chronic debility, wheelchair-bound at baseline, history of cord compression s/p lumbar left laminectomy ? PT/OT/case management followed. Was medically ready for discharge on 02/20, discharged to SNF ([facility]) in stable condition on 02/23. 3. Suspected viral pneumonia ? Chest x-ray on admit showed signs of viral pneumonia. COVID/flu/RSV negative. Pneumonia symptoms resolved while patient and patient remained stable on room air throughout the hospitalization. Chronic medical conditions: ? Hypertension: Home meds held on admission given acute infection as noted above. Resumed on 02/19. Continue home amlodipine and lisinopril. ? BPH with obstructive symptoms: Continue home tamsulosin. ? Anxiety/depression/insomnia: Stable. Continue home bupropion, trazodone, melatonin. ? Iron deficiency anemia: Hemoglobin stable at baseline. Continue home iron supplement. ? Neuropathy: Continue home gabapentin. Total clinical time spent by myself addressing the patient's medical issues, reviewing all the data, and collaborating with patient's care team: 35 minutes. Physical Exam Const alert, oriented x3 and no apparent distress Constitutional Narrative: Pleasant elderly male, obese, sitting up comfortably bed, conversing normally, no acute distress. General Appearance: cooperative and comfortable HEENT normocephalic, head/scalp atraumatic, hearing grossly normal bilaterally, nasal mucous membranes and turbinates normal and moist oral mucous membranes Eyes PERRL, EOMs intact bilaterally and conjunctivae normal Neck full ROM Chest inspection of chest normal Resp normal respiratory effort, normal air movement, no use of accessory muscles and clear to auscultation bilaterally Cardio regular rate, regular rhythm, no murmurs and peripheral pulses 2+ throughout GI normal to inspection, nondistended, normoactive bowel sounds, soft to palpation, non-tender and non-distended Back/Spine normal ROM Extremity normal to inspection, full ROM and no pedal edema Skin no rashes or lesions noted Neuro moves all extremities and no focal motor deficits Speech: speech normal Psych mental status grossly normal Weight / BMI Weight Weight: 97.6 kg Body Mass Index (BMI) 30.1 ABG / Lab / Microbiology Data 02/24/24 06:27 02/24/24 06:27 Laboratory: Laboratory Results - last 24 hr 02/24/24 06:27: WBC 6.3, RBC 3.28 L, Hgb 9.7 L, Hct 29.8 L, MCV 90.9, MCH 29.6, MCHC 32.6, RDW Std Deviation 54.5 H, RDW Coeff of Matthew 16.4 H, Plt Count 342, MPV 8.9, Sodium 141, Potassium 3.6, Chloride 112 H, Carbon Dioxide 22.0, Anion Gap 7, BUN 15, Creatinine 1.11, Estim Creat Clear Calc 69.55, Est GFR (MDRD) Af Amer 83, Est GFR (MDRD) Non-Af 69, BUN/Creatinine Ratio 13.5, Glucose 96, Calcium 8.4 L Microbiology: Microbiology 02/17/24 19:29 Blood Culture (Wb) - Right Hand Blood Culture - Final No growth in 5 days. 02/17/24 19:50 Blood Culture (Wb) - Left Forearm Blood Culture - Final Coag Negative Staph 02/17/24 19:45 Urine Catheter - Catheter Urine Culture - Final Pseudomonas aeruginosa Enterococcus faecalis 02/17/24 19:29 Mucosa - Nose SARS-CoV-2, Influenza & RSV (PCR) - Final Meaningful Use Info Meaningful Use Diagnoses (Choose all that apply): None applicable Discharge Plan Admission Admit Date/Time: 02/17/24 22:33 Primary Reason for Your Visit: Fever and malaise, complicated UTI Attending Provider: Jamie Leiva Primary Care Provider: Marbella Zaidi Consulting Providers: Damaso Payne; Milan Carvalho Discharge Orders/Prescriptions Prescriptions: Continued amlodipine 10 mg tablet 10 mg PO DAILY gabapentin 300 mg capsule 600 mg PO TID tamsulosin 0.4 mg capsule 0.4 mg PO QHS trazodone 50 mg tablet 50 mg PO QHS Patient Comments: pt req an inccrease in dosage because 50mg isnt working for me lisinopril 20 mg tablet 20 mg PO DAILY Hold Instructions: Resume on 01/15/24. bupropion HCl 300 mg tablet extended release 24 hr 300 mg PO DAILY melatonin 5 mg tablet 5 mg PO QHS meclizine 12.5 mg tablet 12.5 mg PO TID Changed ferrous sulfate [FeroSul] 325 mg (65 mg iron) tablet 325 mg PO DAILY 30 Days Qty: 0 0RF Discontinued cephalexin [cephalexin] 500 mg capsule 500 mg PO Q8H Qty: 21 0RF Referrals / Follow Up: Marbella Zaidi PA [Primary Care Provider] - Disposition Disposition (needs filled in before D/C Order can be placed): Intermediate Facility Charges/Coding Visit Charges Inpatient E&M: 11219 Disch Hosp >30min
--- NOTE | 2024-02-24 10:43 | NURSING ---
REPORT CALLED TO HEMAL IN TCU. PT WILL GO TO ROOM 4
--- NOTE | 2024-02-24 11:26 | CASEMGMT ---
IMMANUEL HOWE NOTE: IMMANUEL HOWE spoke w/nurse @ [facility] Zaidi/AMANDO office who states HHC was set up with [facility]. Call placed to [facility]. She was made aware pt was admitted to [facility] and discharging to a SNF. Usama MCLEAN RN, CM
== END 2024-02-24 11:00 | disposition skilled nursing facility (03) | DRG 689 ==
LOC: ED 22:03 → MS3 02-18 07:24
PROVIDERS: Family Medicine; Admitting Provider Internal Medicine; Emergency Provider Emergency Medicine; PCP Physician Assistant; Visit Provider Hospitalist
DX: N39.0 Urinary tract infection, site not specified (principal); J12.9 Viral pneumonia, unspecified; D50.9 Iron deficiency anemia, unspecified; I10 Essential (primary) hypertension; F32.A Depression, unspecified; K21.9 Gastro-esophageal reflux disease without esophagitis; G62.9 Polyneuropathy, unspecified; F41.9 Anxiety disorder, unspecified; B96.5 Pseudomonas (aeruginosa) (mallei) (pseudomallei) as the cause of diseases classified elsewhere; Z87.891 Personal history of nicotine dependence; R53.1 Weakness; R53.81 Other malaise; Z99.3 Dependence on wheelchair; G47.00 Insomnia, unspecified; N40.1 Benign prostatic hyperplasia with lower urinary tract symptoms; N13.6 Pyonephrosis
CPT/HCPCS: 36415; 71045; 80048; 80053; 81001; 83605; 83735; 84100; 84443; 84484; 85025; 85027; 87040; 87077; 87086; 87088; 87184; 87186; 87631; 93005; 94668; 97110; 97116; 97162; 97166; 97530; 97535; 99252; 99282; 99285; J7030; J7050; A4216; G0463; J2405

== ENCOUNTER 2024-02-24 11:05 | Inpatient (IN) | payer MEDICARE, SELFPAY ==
[2024-02-24 11:08] VITALS: BP 148/91; PULSE 86; RESP 19; TEMP 36.6; O2SAT 96; BMI 30.4
--- NOTE | 2024-02-24 11:20 | HP.PCM_ITS ---
HPI - General General Date of Admission: 02/24/24 Date of Service: 02/24/24 Chief Complaint: Here for rehabilitation. HPI Narrative 02/17/2024 MIROSLAVA PALACIO, is a 73 Male who presents to [facility] ED with fatigue. UTI, elevated WBC, weakness. 02/17/2024 Admit to [facility]. Fever, malaise for 2 weeks. Zosyn IV for complicated UTI, chronic indwelling hancock, urine culture pending. Supportive treatment for viral pneumonia. 02/18/2024 Tired, feels better. Zosyn IV for UTI, previous urine culture grew pseudomonas, current urine culture pending. Self caths 2/2 neurogenic bladder 2/2 cord compression. covid/flu/rsv negative, viral pneumonia. 02/19/2024 Doing well, wheelchair bound. PT/OT SNF. Urine culture pending. 02/20/2024 PT/OT SNF. [facility]. 02/21/2024 Weak. Urine culture growing pseudomonas/enterococcus. Continue Zosyn IV for 7 to 10 day course. 02/22/2024 Stable. PT/OT SNF. Pneumonia symptoms resolved. 02/23/2024 Stable. Await placement. 02/24/2024 Admit to TCU with debility, here for rehabilitation, strengthening, prior to discharge home with . [facility] Medical History (Updated 02/24/24 @ 11:[address] Nhan White MD) Anxiety Anxiety Depression Essential (primary) hypertension GERD (gastroesophageal reflux disease) Hepatitis A History of fractured rib (08/12/20) Hypertension Osteoarthritis Right femoral fracture Vision loss of right eye Home Medications amlodipine 10 mg tablet 10 mg PO DAILY BLOOD PRESSURE 10/28/20 [History Last Taken 01/08/24] gabapentin 300 mg capsule 600 mg PO TID NEUROPATHY 03/29/22 [History Last Taken 01/08/24] tamsulosin 0.4 mg capsule 0.4 mg PO QHS PROSTATE 03/11/23 [History Last Taken 01/08/24] bupropion HCl 300 mg 24 hr tablet, extended release 300 mg PO DAILY DEPRESSION 09/28/23 [History Last Taken 01/08/24] lisinopril 20 mg tablet 20 mg PO DAILY BLOOD PRESSURE 09/28/23 [History Last Taken 01/08/24] melatonin 5 mg tablet 5 mg PO QHS SLEEP 09/28/23 [History Last Taken 01/08/24] trazodone 50 mg tablet 50 mg PO QHS SLEEP 09/28/23 [History Last Taken 02/16/24] meclizine 12.5 mg tablet 12.5 mg PO TID dizziness 01/09/24 [History Last Taken Unknown] ferrous sulfate 325 mg (65 mg iron) tablet (FeroSul) 325 mg PO DAILY SUPPLEMENT 30 days #0 tabs 02/24/24 [Rx Last Taken 01/08/24] Allergy/AdvReac Type Severity Reaction Status Date / Time diltiazem [From Cardizem] AdvReac unknown Verified 02/15/24 20:24 losartan [From Hyzaar] AdvReac unknown Verified 02/15/24 20:24 metoprolol [From Lopressor] AdvReac unknown Verified 02/15/24 20:24 valsartan [From Diovan] AdvReac unknown Verified 02/15/24 20:24 Family History Mother Heart disease Cancer breast Sister Heart disease Surgical History History of elbow surgery History of hip replacement History of lumbar laminectomy for spinal cord decompression History of shoulder surgery Social History (Updated 02/24/24 @ 16:[address] Nhan White MD) household members: none Smoking Status: Former smoker quit date: 11/22/92 pack-years: 46 alcohol intake: former year quit: 1991 substance use type: does not use ROS Constitutional Constitutional: Reports fatigue and weakness; Denies chills, fever(s) or weight gain ENT HEENT: Denies headache(s), nasal congestion or nasal discharge Cardiovascular Cardiovascular: Denies chest pain or palpitations Respiratory/Chest Respiratory/Chest: Denies cough, excessive phlegm production or shortness of breath with exertion Gastrointestinal Gastrointestinal: Denies abdominal pain, nausea or vomiting Genitourinary Genitourinary: Denies dysuria Musculoskeletal Musculoskeletal: Denies joint pain or joint swelling Integumentary Integumentary: Denies rash or wounds Neurologic Neurologic: Denies focal weakness, numbness or tingling Psychiatric Psychiatric: Denies anxiety, auditory hallucinations, depression, homicidal ideation or suicidal ideation Vital Signs Vital Signs Vital Signs: 02/24/24 11:08 Temperature 97.8 F Temperature Source Temporal Pulse Rate 86 Respiratory Rate 19 H Blood Pressure 148/91 H Blood Pressure Mean 110 Pulse Ox 96 Oxygen Delivery Method Room Air Physical Exam Const alert General Appearance: cooperative HEENT normocephalic Eyes PERRL and EOMs intact bilaterally Neck supple, no JVD and no carotid bruits Resp normal respiratory effort, normal air movement and clear to auscultation bilaterally Cardio regular rate and regular rhythm GI normal to inspection, nondistended, normoactive bowel sounds, non-tender and non-distended Bladder / Kidney Exam: catheter in place urethral Extremity normal capillary refill General Extremity: Negative for edema Skin no rashes or lesions noted General Skin Exam: no breakdown Psych affect normal Appearance: appropriate Assessment & Plan Assessment/Plan (1) Debility: (2) Complicated urinary tract infection: (3) Viral pneumonia: (4) Essential (primary) hypertension: (5) Neuropathy: (6) BPH (benign prostatic hyperplasia): (7) Depression: (8) Iron deficiency anemia: (9) Insomnia: (10) BPPV (benign paroxysmal positional vertigo): (11) Neurogenic bladder: (12) Spinal cord compression: PLAN: Plan 73 year old male with below past medical history significant for chronic indwelling hancock catheter hospitalized for complicated UTI, viral pneumonia, admitted to TCU with debility, here for rehabilitation, strengthening, prior to discharge home with . * Debility - PT/OT. * Pain - Tylenol 1000mg q6 prn pain (1-10). * Bowel - senna/colace 1 tablet bid prn, Magnesium citrate 300ml daily prn. * Adult immunization - Administer pneumonia vaccine, covid vaccine, flu vaccine as appropriate. * DVT prophylaxis - Lovenox 40mg sc daily. * Hypertension - Lisinopril 20mg daily, Amlodipine 10mg daily. 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 * Iron deficiency anemia - Ferrous sulfate 325mg daily. * Neuropathic pain - Gabapentin 600mg tid. * BPPV - Meclizine 12.5mg tid. 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 * BPH - Tamsulosin 0.4mg qhs. * Complicated UTI - chronic indwelling hancock catheter, completed treatment with Zosyn IV.
[2024-02-24] MEDS: Meclizine 12.5 MG Tablet PO ×2 (14:18→22:43)
[2024-02-24] MEDS: Gabapentin 300 MG Capsule 600 MG PO ×2 (14:18→22:43)
--- NOTE | 2024-02-24 14:51 | CASEMGMT ---
Social Work SW met with patient at bedside to complete initial intake assessment. SW introduced self and role. Patient verified demographics and supportive contact information. The patient confirmed code status as DNR. The patient informed SW that he has a advanced directive, but he is unaware of a copy being provided to [facility]. The patient informed SW that his daughter, Ailin Villalta is his Durable Power of Oncology Rep Specialist. The patient informed SW that DPOA paperwork is with his daughter and located in his safe at home. SW informed the patient of his [facility] Medicare insurance coverage; NRD 02/24. Patient was notified that continued stay is not guaranteed. Patient informed SW that his goal is to return home and be able to walk with a cane. The patient informed SW that prior to hospitalization; he utilized wheelchair in home and had a walker to assist with ambulation. Patient informed SW that he does not have enough turnaround space in home to maneuver. In addition, the patient informed SW that he has a goal to attend outpatient therapy through [facility]. Patient previously attending [facility] for PT/OT. Alternative plan would be home health care. SW will continue to follow to assist with discharge planning. SHEREEN Zamorano
[2024-02-24] MEDS: MELATONIN 10 MG TABLET 5 MG PO (22:42)
[2024-02-24] MEDS: traZODone 50 MG Tablet PO (22:43)
[2024-02-24] MEDS: Tamsulosin HCl 0.4 MG Capsule PO (22:43)
[2024-02-25 05:00] VITALS: BP 142/86; PULSE 78; RESP 16; TEMP 36.3; O2SAT 92
[2024-02-25] MEDS: Meclizine 12.5 MG Tablet PO ×3 (05:23→22:29)
[2024-02-25] MEDS: Enoxaparin 40 MG/0.4 ML Syringe SC (05:23)
[2024-02-25] MEDS: Gabapentin 300 MG Capsule 600 MG PO ×3 (05:24→22:29)
[2024-02-25] MEDS: Acetaminophen 500 MG Tablet 1000 MG PO (05:27)
[2024-02-25 06:00] LABS: Absolute Neutrophil Count 3.7 X10^3/uL (2.0-7.7); Basophil# 0.08 X10^3/uL; Basophil% 1.2 % (0-1); Eosinophil# 0.43 X10^3/uL; Eosinophils% 6.6 % (0-5); Hematocrit 31.7 % (40-54); Lymphocyte % 24.4 % (19-41); Mean Corp Hgb Conc 31.5 g/dL (32-36); Mean Corpuscular Hgb 28.7 pg (27.0-32.0); Mean Corpuscular Volume 91.1 fL (80-94); Mean Platelet Vol. 8.7 fl (6.2-12.0); Monocyte# 0.73 X10^3/uL; Monocyte% 11.1 % (0-10); NRBC Flagged by Analyzer 0 % (0-5); Neutrophil # 3.65 X10^3/uL (2.7-7.7); Neutrophil % 55.6 % (47-70); Platelet Count 375 K/mm3 (150-450); RBC Distribution Width CV 16.4 % (11.6-14.6); RBC Distribution Width SD 54.7 fl (35.1-43.9); Red Blood Count 3.48 M/mm3 (4.6-6.2); White Blood Count 6.6 K/mm3 (4.4-11.0)
[2024-02-25 06:42] LABS: Anion Gap 5 (5-15); BUN 15 mg/dL (7-18); BUN/Creat Ratio 14.9 RATIO (10-20); Calcium,Total 8.8 mg/dL (8.5-10.1); Chloride 109 mmol/L (98-107); Creatinine, Serum 1.01 mg/dL (0.70-1.30); EST Glomerular Filtration Rate 77 mL/min (>60); Est Glom Filt Rate - Afr Amer 93 mL/min (>60); Glucose 96 mg/dL (74-106); Potassium 3.4 mmol/L (3.5-5.1); Sodium Level 138 mmol/L (136-145)
--- NOTE | 2024-02-25 07:58 | PHA.CONS_ITS ---
TCU RX Drug Regimen Review Subjective/Objective Subjective/Objective: Subjective: 73 YOM admitted to TCU 02/24/24. Patient was hospitalized for complicated UTI secondary to chronic indwelling Dowling catheter and completed a course of treatment with Zosyn. Admitted to TCU for strengthening and rehabilit ation prior to discharge home where he resides with his Objective: Allergies diltiazem [From Cardizem] Adverse Reaction (Verified 02/15/24 20:24) unknown losartan [From Hyzaar] Adverse Reaction (Verified 02/15/24 20:24) unknown metoprolol [From Lopressor] Adverse Reaction (Verified 02/15/24 20:24) unknown valsartan [From Diovan] Adverse Reaction (Verified 02/15/24 20:24) unknown Current Medications Generic Name Dose Route Start Last Admin Trade Name Freq PRN Reason Stop Dose Admin Acetaminophen 1,000 mg 02/24/24 11:48 02/25/24 05:27 Acetaminophen 500 Mg Tablet PO 1,000 mg Q6H PRN PRN Administration Pain Score 1-10 Amlodipine Besylate 10 mg 02/25/24 10:00 Amlodipine 10 Mg Tablet PO DAILY [facility] Protocol Bupropion HCl 300 mg 02/25/24 10:00 Bupropion (Xl) 300 Mg Tablet.Xl PO DAILY [facility] Enoxaparin Sodium 40 mg 02/25/24 06:00 02/25/24 05:23 Enoxaparin 40 Mg/0.4 Ml Syringe SC 40 mg DAILY@0600 [facility] Administration Ferrous Sulfate 325 mg 02/25/24 08:00 Ferrous Sulfate 325 Mg Tablet PO DAILYCM [facility] Gabapentin 600 mg 02/24/24 14:00 02/25/24 05:24 Gabapentin 300 Mg Capsule PO 600 mg TID [facility] Administration Lisinopril 20 mg 02/25/24 10:00 Lisinopril 20 Mg Tablet PO DAILY [facility] Protocol Magnesium Citrate 300 ml 02/24/24 11:48 Magnesium Citrate 300 Ml PO DAILY PRN Constipation Meclizine HCl 12.5 mg 02/24/24 14:00 02/25/24 05:23 Meclizine 12.5 Mg Tablet PO 12.5 mg TID [facility] Administration Melatonin 5 mg 02/24/24 22:00 02/24/24 22:42 Melatonin 10 Mg Tablet PO 5 mg QHS [facility] Administration Potassium Chloride 20 meq 02/25/24 08:00 Potassium Chloride Oral Tablet 20 Meq PO DAILYCM [facility] Senna/Docusate Sodium 1 tablet 02/24/24 11:48 Senna/Docusate Sodium 1 Tablet PO BID PRN Constipation Tamsulosin HCl 0.4 mg 02/24/24 22:00 02/24/24 22:43 Tamsulosin Hcl 0.4 Mg Capsule PO 0.4 mg QHS [facility] Administration Trazodone HCl 50 mg 02/24/24 22:00 02/24/24 22:43 Trazodone 50 Mg Tablet PO 50 mg QHS [facility] Administration Tuberculin PPD 0.1 ml 03/03/24 10:00 Tuberculin,Purif.Prot.Deriv. 50 Tu/Ml Vial ID 03/03/24 10:01 X1 ONE Tuberculin PPD 0.1 ml 02/25/24 10:00 Tuberculin,Purif.Prot.Deriv. 50 Tu/Ml Vial ID 02/25/24 10:01 X1 ONE Problem List (Updated 02/24/24 @ 11:[address] Nhan White MD) Spinal cord compression (Acute) Neurogenic bladder (Acute) BPPV (benign paroxysmal positional vertigo) (Acute) Insomnia (Acute) Iron deficiency anemia (Acute) Depression (Acute) BPH (benign prostatic hyperplasia) (Acute) Neuropathy (Acute) Essential (primary) hypertension (Acute) Debility (Acute) Viral pneumonia (Acute) Vital Signs Temp Pulse Resp BP Pulse Ox O2 Del Method 97.4 F L 78 16 142/86 H 92 Room Air 02/25/24 05:00 02/25/24 05:00 02/25/24 05:00 02/25/24 05:00 02/25/24 05:00 02/25/24 05:00 Oxygen Delivery Method Room Air Weight: 98.883 kg Body Mass Index (BMI) 30.4 Sodium 138 mmol/L (136-145) 02/25/24 05:11 Potassium 3.4 mmol/L (3.5-5.1) L 02/25/24 05:11 Chloride 109 mmol/L (98-107) H 02/25/24 05:11 Carbon Dioxide 24.0 mmol/L (21.0-32.0) 02/25/24 05:11 Anion Gap 5 (5-15) 02/25/24 05:11 BUN 15 mg/dL (7-18) 02/25/24 05:11 Creatinine 1.01 mg/dL (0.70-1.30) 02/25/24 05:11 Est GFR (MDRD) Af Amer 93 mL/min (>60) 02/25/24 05:11 Est GFR (MDRD) Non-Af 77 mL/min (>60) 02/25/24 05:11 BUN/Creatinine Ratio 14.9 RATIO (10-20) 02/25/24 05:11 Glucose 96 mg/dL (74-106) 02/25/24 05:11 Assessment/Plan: 1. Pain: Tylenol 1000mg PO Q6h PRN Pain 1-5, naproxen 500mg PO BID PRN Pain 6- 10. Please continue to monitor for increased/decreased S/S pain, PRN medication usage. -The patient has used 1 dose of PRN medication for pain rated 3/10. Post-medication pain rated a 0/10. Pain appears managed at this time. 2. HTN: Norvasc 10mg PO Daily, Lisinopril 20mg PO Daily. Please continue to monitor BP (last 142/86), s/s swelling in extremities, renal fxn (last CrCl 76 mL/min 02/25/24). 3. Neuropathic Pain: Gabapentin 600mg PO TID. Please continue to monitor for dizziness, oversedation, renal function. this is a Beer's criteria medication which can increase the risk of falls in patients >65 years of age. Please continue to monitor patient's fall risk and consider alternate therapy if the risk outweighs the benefit of use, thank you. 4. BPH: Flomax 0.4mg PO QHS. Please continue to monitor for hypotension (last BP 142/86), urinary retention, S/S recurrent UTI. 5. BPPV: Meclizine 12.5mg PO TID. Please continue to monitor for drowsiness, confusion, oversedation with scheduled use. This is a beer's Criteria medication which can increase the risk of confusion in patients > 65 years of age. Please continue to monitor risk vs. benefit of use. 6. Hypokalemia: KCl 20mEq PO daily. Please continue to monitor potassium (K = 3.4 on 02/24), stomach upset, N/V. 7. Iron Deficiency anemia: Ferrous sulfate 325mg PO Daily. Please continue to monitor for N/V, abdominal pain, H/H, iron studies as clinically indicated. 8. DVT prophylaxis: Lovenox 40mg SC Daily. Please continue to monitor for S/S bleeding/bruising, H/H (Hgb 10, Hct 31.7 on 02/24), renal function (last CrCl 76 mL/min on 02/24) 9. Bowel: Senna/Docusate 1 tab PO BID PRN, magnesium Citrate 300mL PO Daily PRN. Please continue to monitor for increased/decreased constipation and/or diarrhea. -The patient has not had a BM since admission. Please continue to monitor and consider giving PRN medication if pt does not have a BM in the next 48-72hrs. Assessment/Plan for indications treated with psychotropic medications: 1. Depression: Bupropion XL 300mg PO Daily. Please consider a GDR by 08/2024 if clinically indicated, thank you. 2. Insomnia: Trazodone 50mg PO QHS, Melatonin 5mg PO QHS. Please continue to monitor for oversedation. Please consider a GDR for trazodone by 08/2024 if clinically indicated, thank you. Medical chart and medication regimen reviewed. The following medication irregularities or issues were identified: 1. Depression: Bupropion XL 300mg PO Daily. Please consider a GDR by 08/2024 if clinically indicated, thank you. 2. 2. Insomnia: Trazodone 50mg PO QHS. Please consider a GDR for trazodone by 08/2024 if clinically indicated, thank you. Date Date of Note:: 02/25/24
[2024-02-25] MEDS: amLODIPine 10 MG Tablet PO (08:30)
[2024-02-25] MEDS: Ferrous Sulfate 325 MG Tablet PO (08:30)
[2024-02-25] MEDS: buPROPion (XL) 300 MG TABLET.XL PO (08:31)
[2024-02-25] MEDS: Lisinopril 20 MG Tablet PO (08:31)
[2024-02-25] MEDS: Potassium Chloride Oral Tablet 20 MEQ PO (08:36)
[2024-02-25] MEDS: Tuberculin,Purif.prot.deriv. 50 TU/ML Vial 0.1 ML ID (09:30)
--- NOTE | 2024-02-25 13:02 | NURSING ---
Main Line Assembler Note; Activity Asset: Donovan Norm will also go by Antonio Antonio is independent in his choice of daily activities. 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 He welcomes visits from the architectural drafting instructor and therapy dog when available. Staff will Continue to remind him of weekly activities and respect his right to say no.
[2024-02-25 16:00] VITALS: BP 149/86; PULSE 83; RESP 16; TEMP 36.6; O2SAT 98
[2024-02-25] MEDS: MELATONIN 10 MG TABLET 5 MG PO (22:28)
[2024-02-25] MEDS: Tamsulosin HCl 0.4 MG Capsule PO (22:29)
[2024-02-25] MEDS: traZODone 50 MG Tablet PO (22:29)
[2024-02-26] MEDS: Meclizine 12.5 MG Tablet PO ×3 (06:02→22:36)
[2024-02-26] MEDS: Gabapentin 300 MG Capsule 600 MG PO ×3 (06:02→22:36)
[2024-02-26] MEDS: Enoxaparin 40 MG/0.4 ML Syringe SC (06:02)
[2024-02-26] MEDS: Potassium Chloride Oral Tablet 20 MEQ PO (09:36)
[2024-02-26] MEDS: Ferrous Sulfate 325 MG Tablet PO (09:36)
[2024-02-26] MEDS: amLODIPine 10 MG Tablet PO (09:36)
[2024-02-26] MEDS: buPROPion (XL) 300 MG TABLET.XL PO (09:37)
[2024-02-26] MEDS: Lisinopril 20 MG Tablet PO (09:37)
[2024-02-26] MEDS: Naproxen 500 MG Tablet PO (09:46)
[2024-02-26 10:00] VITALS: PULSE 90; O2SAT 94
[2024-02-26] MEDS: Acetaminophen 500 MG Tablet 1000 MG PO ×2 (14:25→22:35)
[2024-02-26 15:09] VITALS: BP 147/99; PULSE 90; RESP 14; TEMP 36.5; O2SAT 94
[2024-02-26] MEDS: MELATONIN 10 MG TABLET 5 MG PO (22:36)
[2024-02-26] MEDS: Tamsulosin HCl 0.4 MG Capsule PO (22:36)
[2024-02-26] MEDS: traZODone 50 MG Tablet PO (22:36)
[2024-02-27 05:49] LABS: Anion Gap 5 (5-15); BUN 24 mg/dL (7-18); Calcium,Total 8.8 mg/dL (8.5-10.1); Chloride 109 mmol/L (98-107); EST Glomerular Filtration Rate 63 mL/min (>60); Est Glom Filt Rate - Afr Amer 76 mL/min (>60); Estimated Creatinine Clearance 64.73 ml/min; Glucose 100 mg/dL (74-106); Potassium 4.2 mmol/L (3.5-5.1); Sodium Level 138 mmol/L (136-145)
[2024-02-27] MEDS: Enoxaparin 40 MG/0.4 ML Syringe SC (06:18)
[2024-02-27] MEDS: Meclizine 12.5 MG Tablet PO ×3 (06:19→22:32)
[2024-02-27] MEDS: Gabapentin 300 MG Capsule 600 MG PO ×3 (06:19→22:32)
[2024-02-27] MEDS: Naproxen 500 MG Tablet PO (08:38)
[2024-02-27] MEDS: Lisinopril 20 MG Tablet PO (08:38)
[2024-02-27] MEDS: amLODIPine 10 MG Tablet PO (08:38)
[2024-02-27] MEDS: Ferrous Sulfate 325 MG Tablet PO (08:38)
[2024-02-27] MEDS: buPROPion (XL) 300 MG TABLET.XL PO (08:38)
[2024-02-27] MEDS: Potassium Chloride Oral Tablet 20 MEQ PO (08:38)
[2024-02-27 16:00] VITALS: BP 152/70; PULSE 60; RESP 14; TEMP 36.7; O2SAT 99
[2024-02-27 22:00] VITALS: PULSE 84; O2SAT 95
[2024-02-27] MEDS: MELATONIN 10 MG TABLET 5 MG PO (22:32)
[2024-02-27] MEDS: traZODone 50 MG Tablet PO (22:32)
[2024-02-27] MEDS: Tamsulosin HCl 0.4 MG Capsule PO (22:32)
[2024-02-27] MEDS: Acetaminophen 500 MG Tablet 1000 MG PO (22:32)
[2024-02-28] MEDS: Enoxaparin 40 MG/0.4 ML Syringe SC (06:07)
[2024-02-28] MEDS: Gabapentin 300 MG Capsule 600 MG PO ×3 (06:07→20:29)
[2024-02-28] MEDS: Meclizine 12.5 MG Tablet PO ×3 (06:07→20:28)
[2024-02-28] MEDS: Lisinopril 20 MG Tablet PO (07:46)
[2024-02-28] MEDS: Ferrous Sulfate 325 MG Tablet PO (07:47)
[2024-02-28] MEDS: amLODIPine 10 MG Tablet PO (07:47)
[2024-02-28] MEDS: Naproxen 500 MG Tablet PO (07:47)
[2024-02-28] MEDS: buPROPion (XL) 300 MG TABLET.XL PO (07:47)
[2024-02-28] MEDS: Potassium Chloride Oral Tablet 20 MEQ PO (07:47)
[2024-02-28 09:26] VITALS: PULSE 82; RESP 12; O2SAT 94
--- NOTE | 2024-02-28 09:28 | NURSING ---
Offered covid vaccine, VIS provided. Patient refuses at this time.
[2024-02-28 16:00] VITALS: BP 144/72; PULSE 72; RESP 12; TEMP 36.6; O2SAT 98
[2024-02-28] MEDS: Tamsulosin HCl 0.4 MG Capsule PO (20:29)
[2024-02-28] MEDS: MELATONIN 10 MG TABLET 5 MG PO (21:50)
[2024-02-28] MEDS: traZODone 50 MG Tablet PO (21:50)
[2024-02-29] MEDS: Meclizine 12.5 MG Tablet PO ×3 (05:29→22:19)
[2024-02-29] MEDS: Enoxaparin 40 MG/0.4 ML Syringe SC (05:29)
[2024-02-29] MEDS: Gabapentin 300 MG Capsule 600 MG PO ×3 (05:29→22:18)
[2024-02-29] MEDS: Ferrous Sulfate 325 MG Tablet PO (08:13)
[2024-02-29] MEDS: Potassium Chloride Oral Tablet 20 MEQ PO (08:13)
[2024-02-29] MEDS: amLODIPine 10 MG Tablet PO (08:14)
[2024-02-29] MEDS: Lisinopril 20 MG Tablet PO (08:14)
[2024-02-29] MEDS: Naproxen 500 MG Tablet PO (08:14)
[2024-02-29] MEDS: buPROPion (XL) 300 MG TABLET.XL PO (08:14)
[2024-02-29 12:18] VITALS: BMI 30.2
[2024-02-29 16:00] VITALS: BP 96/55; PULSE 53; RESP 16; TEMP 36.7; O2SAT 91
[2024-02-29] MEDS: Acetaminophen 500 MG Tablet 1000 MG PO (19:41)
[2024-02-29] MEDS: Tamsulosin HCl 0.4 MG Capsule PO (22:20)
[2024-02-29] MEDS: traZODone 50 MG Tablet PO (22:20)
[2024-02-29] MEDS: MELATONIN 10 MG TABLET 5 MG PO (22:20)
[2024-02-29 22:34] VITALS: PULSE 83; RESP 14; O2SAT 95
[2024-03-01] MEDS: Meclizine 12.5 MG Tablet PO ×3 (06:16→20:54)
[2024-03-01] MEDS: Gabapentin 300 MG Capsule 600 MG PO ×3 (06:16→20:54)
[2024-03-01] MEDS: Enoxaparin 40 MG/0.4 ML Syringe SC (06:17)
[2024-03-01] MEDS: Naproxen 500 MG Tablet PO (08:02)
[2024-03-01] MEDS: amLODIPine 10 MG Tablet PO (08:03)
[2024-03-01] MEDS: Potassium Chloride Oral Tablet 20 MEQ PO (08:03)
[2024-03-01] MEDS: Ferrous Sulfate 325 MG Tablet PO (08:03)
[2024-03-01] MEDS: buPROPion (XL) 300 MG TABLET.XL PO (08:04)
[2024-03-01] MEDS: Lisinopril 20 MG Tablet PO (08:04)
[2024-03-01 08:07] VITALS: BP 129/89; PULSE 93
--- NOTE | 2024-03-01 13:45 | CASEMGMT ---
Social Work IDT met with patient at bedside with daughterAilin via phone to complete care plan meeting. Patient discussed progression with therapy (PT/OT). The patient is progressing with therapy for functional ability with walker and wheelchair mobility. RHEA educated patient and daughter of patients [employer] Medicare insurance coverage; NRD 03/07 with estimated discharge date 03/10/2024. SW informed patient that discharge and continuation of stay is determined by insurance review. Patient informed SW that his goal for discharge is outpatient therapy via [employer] with transportation assistance. Patient's daughter inquired about home health care as an alternative plan. Patient declined home health care services at this time. Therapy informed care team that patient could tolerate outpatient therapy once goals are met. SW provided patient with meal delivery resource to assist with meal delivery to home due to lack of transportation. RHEA will continue to follow to assist patient with transition of care plans. SHEREEN Zamorano
[2024-03-01 14:00] VITALS: PULSE 88; RESP 18; O2SAT 96
[2024-03-01] MEDS: Senna/Docusate Sodium 1 Tablet PO (14:11)
--- NOTE | 2024-03-01 14:15 | NURSING ---
PT COMPLAINED OF FEELING TIRED ALL DAY AND STATING HE FEELS LIKE HES CONSTIPATED. DID ASSESSMENT ON PT,VITALS WNL. PT ASKED FOR PRN SENOKOT AND PRUNE JUICE W/BUTTER GIVEN. WILL CONTINUE TO MONITOR.
[2024-03-01 16:00] VITALS: BP 111/73; PULSE 82; RESP 18; TEMP 36.4; O2SAT 94
[2024-03-01] MEDS: Menthol/Lanolin/Calamine/Znox 113 GM Tube 1 APPLIC TOPICAL (20:54)
[2024-03-01] MEDS: Tamsulosin HCl 0.4 MG Capsule PO (20:55)
[2024-03-01] MEDS: traZODone 50 MG Tablet PO (22:01)
[2024-03-01] MEDS: MELATONIN 10 MG TABLET 5 MG PO (22:01)
[2024-03-02] MEDS: Enoxaparin 40 MG/0.4 ML Syringe SC (05:24)
[2024-03-02] MEDS: Gabapentin 300 MG Capsule 600 MG PO ×3 (05:24→22:11)
[2024-03-02] MEDS: Meclizine 12.5 MG Tablet PO ×3 (05:24→22:14)
[2024-03-02] MEDS: Menthol/Lanolin/Calamine/Znox 113 GM Tube 1 APPLIC TOPICAL ×2 (08:54→22:13)
[2024-03-02] MEDS: Lisinopril 20 MG Tablet PO (08:55)
[2024-03-02] MEDS: Naproxen 500 MG Tablet PO (08:55)
[2024-03-02] MEDS: Ferrous Sulfate 325 MG Tablet PO (08:55)
[2024-03-02] MEDS: Potassium Chloride Oral Tablet 20 MEQ PO (08:55)
[2024-03-02] MEDS: buPROPion (XL) 300 MG TABLET.XL PO (08:56)
[2024-03-02] MEDS: amLODIPine 10 MG Tablet PO (08:56)
[2024-03-02 08:58] VITALS: BP 101/59; PULSE 89
[2024-03-02 10:15] VITALS: PULSE 71; RESP 18; O2SAT 95
[2024-03-02 15:57] VITALS: BP 105/66; PULSE 82; RESP 17; TEMP 36.6; O2SAT 93
[2024-03-02] MEDS: Tamsulosin HCl 0.4 MG Capsule PO (22:12)
[2024-03-02] MEDS: MELATONIN 10 MG TABLET 5 MG PO (22:12)
[2024-03-02] MEDS: traZODone 50 MG Tablet PO (22:13)
[2024-03-02] MEDS: Acetaminophen 500 MG Tablet 1000 MG PO (22:19)
[2024-03-03 06:02] LABS: Absolute Lymphocyte Count 1.84 X10^3/uL (0.83-4.51); Absolute Neutrophil Count 5.2 X10^3/uL (2.0-7.7); Basophil# 0.12 X10^3/uL; Basophil% 1.4 % (0-1); Eosinophil# 0.35 X10^3/uL; Eosinophils% 4.2 % (0-5); Hematocrit 34.4 % (40-54); Hemoglobin 10.8 g/dL (13.0-16.5); Lymphocyte # 1.84 X10^3/ul (0.83-4.51); Lymphocyte % 21.9 % (19-41); Mean Corp Hgb Conc 31.4 g/dL (32-36); Mean Corpuscular Hgb 29.6 pg (27.0-32.0); Mean Corpuscular Volume 94.2 fL (80-94); Mean Platelet Vol. 8.8 fl (6.2-12.0); Monocyte# 0.83 X10^3/uL; Monocyte% 9.9 % (0-10); NRBC Flagged by Analyzer 0 % (0-5); Neutrophil # 5.21 X10^3/uL (2.7-7.7); Neutrophil % 61.8 % (47-70); Platelet Count 419 K/mm3 (150-450); RBC Distribution Width CV 16.7 % (11.6-14.6); Red Blood Count 3.65 M/mm3 (4.6-6.2); White Blood Count 8.4 K/mm3 (4.4-11.0)
[2024-03-03 06:24] LABS: Anion Gap 4 (5-15); BUN 34 mg/dL (7-18); BUN/Creat Ratio 22.8 RATIO (10-20); Calcium,Total 9.3 mg/dL (8.5-10.1); Chloride 107 mmol/L (98-107); Creatinine, Serum 1.49 mg/dL (0.70-1.30); EST Glomerular Filtration Rate 49 mL/min (>60); Est Glom Filt Rate - Afr Amer 59 mL/min (>60); Estimated Creatinine Clearance 51.88 ml/min; Glucose 90 mg/dL (74-106); Potassium 4.7 mmol/L (3.5-5.1); Sodium Level 136 mmol/L (136-145)
[2024-03-03] MEDS: Gabapentin 300 MG Capsule 600 MG PO ×3 (06:28→22:34)
[2024-03-03] MEDS: Meclizine 12.5 MG Tablet PO ×3 (06:29→22:34)
[2024-03-03] MEDS: Enoxaparin 40 MG/0.4 ML Syringe SC (06:29)
[2024-03-03] MEDS: amLODIPine 10 MG Tablet PO (08:59)
[2024-03-03] MEDS: Ferrous Sulfate 325 MG Tablet PO (08:59)
[2024-03-03] MEDS: Potassium Chloride Oral Tablet 20 MEQ PO (08:59)
[2024-03-03] MEDS: buPROPion (XL) 300 MG TABLET.XL PO (09:00)
[2024-03-03] MEDS: Lisinopril 20 MG Tablet PO (09:00)
[2024-03-03] MEDS: Naproxen 500 MG Tablet PO (09:02)
[2024-03-03] MEDS: Menthol/Lanolin/Calamine/Znox 113 GM Tube 1 APPLIC TOPICAL ×2 (09:06→22:36)
--- NOTE | 2024-03-03 09:16 | NURSING ---
Substation Operator Chief Note; MDS for 03/02/2024 Complete
[2024-03-03 13:06] VITALS: BP 112/65; PULSE 66; RESP 18; TEMP 36.3; O2SAT 93
[2024-03-03] MEDS: Tuberculin,Purif.prot.deriv. 50 TU/ML Vial 0.1 ML ID (15:15)
[2024-03-03 20:40] VITALS: PULSE 88; O2SAT 94
[2024-03-03] MEDS: Acetaminophen 500 MG Tablet 1000 MG PO (20:42)
[2024-03-03] MEDS: MELATONIN 10 MG TABLET 5 MG PO (22:34)
[2024-03-03] MEDS: Tamsulosin HCl 0.4 MG Capsule PO (22:34)
[2024-03-03] MEDS: traZODone 50 MG Tablet PO (22:34)
[2024-03-04] MEDS: Enoxaparin 40 MG/0.4 ML Syringe SC (06:09)
[2024-03-04] MEDS: Acetaminophen 500 MG Tablet 1000 MG PO (06:09)
[2024-03-04] MEDS: Gabapentin 300 MG Capsule 600 MG PO ×3 (06:09→22:18)
[2024-03-04] MEDS: Meclizine 12.5 MG Tablet PO ×3 (06:09→22:19)
[2024-03-04 07:09] LABS: Anion Gap 3 (5-15); BUN 31 mg/dL (7-18); BUN/Creat Ratio 20.8 RATIO (10-20); Calcium,Total 9.1 mg/dL (8.5-10.1); Chloride 107 mmol/L (98-107); Creatinine, Serum 1.49 mg/dL (0.70-1.30); EST Glomerular Filtration Rate 49 mL/min (>60); Est Glom Filt Rate - Afr Amer 59 mL/min (>60); Estimated Creatinine Clearance 51.88 ml/min; Glucose 95 mg/dL (74-106); Potassium 4.7 mmol/L (3.5-5.1); Sodium Level 135 mmol/L (136-145)
[2024-03-04] MEDS: Potassium Chloride Oral Tablet 20 MEQ PO (08:06)
[2024-03-04] MEDS: Ferrous Sulfate 325 MG Tablet PO (08:06)
[2024-03-04] MEDS: amLODIPine 10 MG Tablet PO (08:07)
[2024-03-04] MEDS: Naproxen 500 MG Tablet PO (08:08)
[2024-03-04] MEDS: buPROPion (XL) 300 MG TABLET.XL PO (08:08)
[2024-03-04] MEDS: Lisinopril 20 MG Tablet PO (08:08)
[2024-03-04] MEDS: Menthol/Lanolin/Calamine/Znox 113 GM Tube 1 APPLIC TOPICAL ×2 (08:10→22:19)
[2024-03-04 08:12] VITALS: BP 106/76; PULSE 87
[2024-03-04 16:00] VITALS: BP 111/64; PULSE 84; RESP 14; TEMP 36.8; O2SAT 97
--- NOTE | 2024-03-04 20:30 | NURSING ---
PT. STATING HE FEELS LIKE HE IS CONSTIPATED. PT ASKED FOR PRN SENOKOT AND PRUNE JUICE W/BUTTER GIVEN. WILL CONTINUE TO MONITOR.
[2024-03-04] MEDS: Senna/Docusate Sodium 1 Tablet PO (20:34)
[2024-03-04 22:00] VITALS: PULSE 76; RESP 18; O2SAT 91
[2024-03-04] MEDS: traZODone 50 MG Tablet PO (22:20)
[2024-03-04] MEDS: Tamsulosin HCl 0.4 MG Capsule PO (22:20)
[2024-03-04] MEDS: MELATONIN 10 MG TABLET 5 MG PO (22:21)
[2024-03-05] MEDS: Gabapentin 300 MG Capsule 600 MG PO ×3 (06:28→22:04)
[2024-03-05] MEDS: Meclizine 12.5 MG Tablet PO ×3 (06:28→22:04)
[2024-03-05] MEDS: Enoxaparin 40 MG/0.4 ML Syringe SC (06:28)
[2024-03-05] MEDS: Potassium Chloride Oral Tablet 20 MEQ PO ×2 (08:10→08:14)
[2024-03-05] MEDS: amLODIPine 10 MG Tablet PO ×2 (08:10→08:15)
[2024-03-05] MEDS: Lisinopril 20 MG Tablet PO ×2 (08:10→08:14)
[2024-03-05] MEDS: buPROPion (XL) 300 MG TABLET.XL PO ×2 (08:10→08:14)
[2024-03-05] MEDS: Ferrous Sulfate 325 MG Tablet PO ×2 (08:10→08:15)
[2024-03-05] MEDS: Acetaminophen 500 MG Tablet 1000 MG PO (08:14)
[2024-03-05] MEDS: Menthol/Lanolin/Calamine/Znox 113 GM Tube 1 APPLIC TOPICAL ×2 (08:16→22:04)
[2024-03-05 08:19] VITALS: BP 106/74; PULSE 92
[2024-03-05] MEDS: Naproxen 500 MG Tablet PO (10:42)
[2024-03-05 13:45] VITALS: PULSE 80; RESP 18; O2SAT 95
[2024-03-05 16:00] VITALS: BP 103/66; PULSE 80; RESP 16; TEMP 36.5; O2SAT 96
[2024-03-05] MEDS: traZODone 50 MG Tablet PO (22:05)
[2024-03-05] MEDS: MELATONIN 10 MG TABLET 5 MG PO (22:06)
[2024-03-05] MEDS: Tamsulosin HCl 0.4 MG Capsule PO (22:06)
[2024-03-06] MEDS: Gabapentin 300 MG Capsule 600 MG PO ×3 (06:14→22:18)
[2024-03-06] MEDS: Meclizine 12.5 MG Tablet PO ×3 (06:14→22:18)
[2024-03-06] MEDS: Enoxaparin 40 MG/0.4 ML Syringe SC (06:14)
[2024-03-06 06:18] LABS: Anion Gap 6 (5-15); BUN 30 mg/dL (7-18); BUN/Creat Ratio 20.7 RATIO (10-20); Calcium,Total 9.3 mg/dL (8.5-10.1); Chloride 105 mmol/L (98-107); Creatinine, Serum 1.45 mg/dL (0.70-1.30); EST Glomerular Filtration Rate 51 mL/min (>60); Est Glom Filt Rate - Afr Amer 61 mL/min (>60); Estimated Creatinine Clearance 53.31 ml/min; Glucose 96 mg/dL (74-106); Potassium 4.9 mmol/L (3.5-5.1); Sodium Level 137 mmol/L (136-145)
[2024-03-06 06:21] VITALS: PULSE 76; RESP 18; O2SAT 94
[2024-03-06] MEDS: Menthol/Lanolin/Calamine/Znox 113 GM Tube 1 APPLIC TOPICAL ×2 (08:36→22:21)
[2024-03-06] MEDS: Naproxen 500 MG Tablet PO (08:37)
[2024-03-06] MEDS: Potassium Chloride Oral Tablet 20 MEQ PO (08:45)
[2024-03-06] MEDS: Ferrous Sulfate 325 MG Tablet PO (08:47)
[2024-03-06] MEDS: Lisinopril 20 MG Tablet PO (08:48)
[2024-03-06] MEDS: amLODIPine 10 MG Tablet PO (08:48)
[2024-03-06 14:15] VITALS: BP 109/66; PULSE 87; RESP 16; TEMP 36.6; O2SAT 94
[2024-03-06] MEDS: Acetaminophen 500 MG Tablet 1000 MG PO (19:46)
[2024-03-06] MEDS: Tamsulosin HCl 0.4 MG Capsule PO (22:18)
[2024-03-06] MEDS: traZODone 50 MG Tablet PO (22:18)
[2024-03-06] MEDS: MELATONIN 10 MG TABLET 5 MG PO (22:18)
[2024-03-06] MEDS: buPROPion (XL) 300 MG TABLET.XL PO (22:19)
[2024-03-07] MEDS: Meclizine 12.5 MG Tablet PO ×3 (06:07→22:02)
[2024-03-07] MEDS: Acetaminophen 500 MG Tablet 1000 MG PO (06:08)
[2024-03-07] MEDS: Gabapentin 300 MG Capsule 600 MG PO ×3 (06:08→22:00)
[2024-03-07] MEDS: Enoxaparin 40 MG/0.4 ML Syringe SC (06:08)
[2024-03-07] MEDS: Potassium Chloride Oral Tablet 20 MEQ PO (08:02)
[2024-03-07] MEDS: Ferrous Sulfate 325 MG Tablet PO (08:02)
[2024-03-07] MEDS: Menthol/Lanolin/Calamine/Znox 113 GM Tube 1 APPLIC TOPICAL ×2 (08:02→22:04)
[2024-03-07] MEDS: Lisinopril 20 MG Tablet PO (08:03)
[2024-03-07] MEDS: amLODIPine 10 MG Tablet PO (08:03)
[2024-03-07] MEDS: Naproxen 500 MG Tablet PO (08:04)
[2024-03-07 09:58] VITALS: BMI 29.9
[2024-03-07 10:46] VITALS: BP 101/68; PULSE 73; RESP 18; TEMP 36; O2SAT 95
--- NOTE | 2024-03-07 10:47 | EKG12_ITS ---
Test Reason : cp Blood Pressure : / mmHG Vent. Rate : 085 BPM Atrial Rate : 085 BPM P-R Int : 174 ms QRS Dur : 100 ms QT Int : 370 ms P-R-T Axes : 026 -65 -15 degrees QTc Int : 440 ms Normal sinus rhythm Left anterior fascicular block Abnormal ECG When compared with ECG of 17-FEB-2024 22:18, Nonspecific T wave abnormality no longer evident in Lateral leads Confirmed by MELYSSA VO ([id number]), city editor PAOLA AVILA ([id number]) on 03/13/2024 9:28:59 AM Referred By: Nhan White Confirmed By:MELYSSA VO
--- NOTE | 2024-03-07 15:37 | CHAPLAIN ---
Type of Pastoral Visit ___ Initial Visit _x__ Follow-up Visit ___ On-call Visit ___ General Patient Visit ___ Spiritual Assessment ___ Family Conference ___ Bereavement ___ Rapid Response ___ Code Blue ___ Other (describe below) Pastoral Care Referral From _x__ Patient ___ Family ___ Nurse ___ Physician ___ Rug Hooker ___ Ceramics Engineer ___ Other (describe below) Sacrament/Intervention _x__ Active listening ___ Anointing ___ Taoism ___ Bereavement ___ Communion _x__ Ewelina exploration ___ ___ Life review _x__ Prayer ___ Reconciliation ___ Sacrament of Sick _x__ Supportive presence ___ Wedding ___ Other (describe below) Pastoral Comments patient had been previously seen by this fire regulator when he was an inpatient; pt speaks of his ongoing journey in recovery; pt admits that he may have come to a defining point when he has limits that will require future changes in lifestyle and housing; pt is open about his thoughts, feelings, acceptance, and ewelina; pt talks about how the changes came pretty quickly; pt uses ewelina and support of friends for help; pt welcomes prayer
--- NOTE | 2024-03-07 15:56 | CASEMGMT ---
Social Work Patient's [employer] Insurance issued a Notice of [employer] Non Coverage with snf servies ending 03/09/24. This worker met patient and reviewed letter and appeal rights. Pt stated he does not wish to appeal and signed letter. Pt states he would like to be DC home with outpatient therapy through [facility]. Pt asked this worker to call his friend Jocelin to update her on DC date. This worker telephoned friend Jocelin and updated on DC date and outpt therapy. Jocelin stated her , Singh, will be able to pick pt up for DC transport to home. SW will make referral to [employer] and transportation through [facility] van service. Kim AVILA
--- NOTE | 2024-03-07 20:36 | DS.PCM_ITS ---
Providers Date of Admission: 02/24/24 Primary Care Physician: AMANDO Robbins Reason For Visit: UTI WEAKNESS Diagnosis Discharge Diagnosis (1) Debility: Status: Acute Code(s): R53.81 - Other malaise (2) Complicated urinary tract infection: Status: Inactive Code(s): N39.0 - Urinary tract infection, site not specified (3) Viral pneumonia: Status: Resolved Code(s): J12.9 - Viral pneumonia, unspecified (4) Essential (primary) hypertension: Status: Acute Code(s): I10 - Essential (primary) hypertension (5) Neuropathy: Status: Acute Code(s): G62.9 - Polyneuropathy, unspecified (6) BPH (benign prostatic hyperplasia): Status: Acute Code(s): N40.0 - Benign prostatic hyperplasia without lower urinary tract symptoms (7) Depression: Status: Acute Code(s): F32.A - Depression, unspecified (8) Iron deficiency anemia: Status: Acute Code(s): D50.9 - Iron deficiency anemia, unspecified (9) Insomnia: Status: Acute Code(s): G47.00 - Insomnia, unspecified (10) BPPV (benign paroxysmal positional vertigo): Status: Acute Code(s): H81.10 - Benign paroxysmal vertigo, unspecified ear (11) Neurogenic bladder: Status: Acute Code(s): N31.9 - Neuromuscular dysfunction of bladder, unspecified (12) Spinal cord compression: Status: Acute Code(s): G95.20 - Unspecified cord compression Plan 73 year old male with below past medical history significant for chronic indwelling hancock catheter hospitalized for complicated UTI, viral pneumonia, admitted to TCU with debility, here for rehabilitation, strengthening, prior to discharge home with . * Debility - PT/OT. * Pain - Tylenol 1000mg q6 prn pain (1-10). * Bowel - senna/colace 1 tablet bid prn, Magnesium citrate 300ml daily prn. * Adult immunization - Administer pneumonia vaccine, covid vaccine, flu vaccine as appropriate. * DVT prophylaxis - Lovenox 40mg sc daily. * Hypertension - Lisinopril 20mg daily, Amlodipine 10mg daily. * Depression - Wellbutrin XL 300mg daily, stable chronic skilled nursing use, GDR not recommended. * Iron deficiency anemia - Ferrous sulfate 325mg daily. * Neuropathic pain - Gabapentin 600mg tid. * BPPV - Meclizine 12.5mg tid. * Insomnia - Melatonin 5mg qhs, Trazodone 50mg qhs, stable chronic manager terminal use, GDR not recommended. * BPH - Tamsulosin 0.4mg qhs. * Complicated UTI - chronic indwelling hancock catheter, completed treatment with Zosyn IV. Medications at Discharge Home Medications amlodipine 10 mg tablet 10 mg PO DAILY BLOOD PRESSURE 10/28/20 gabapentin 300 mg capsule 600 mg PO TID NEUROPATHY 03/29/22 tamsulosin 0.4 mg capsule 0.4 mg PO QHS PROSTATE 03/11/23 bupropion HCl 300 mg 24 hr tablet, extended release 300 mg PO DAILY DEPRESSION 09/28/23 lisinopril 20 mg tablet 20 mg PO DAILY BLOOD PRESSURE 09/28/23 melatonin 5 mg tablet 5 mg PO QHS SLEEP 09/28/23 trazodone 50 mg tablet 50 mg PO QHS SLEEP 09/28/23 meclizine 12.5 mg tablet 12.5 mg PO TID dizziness 01/09/24 ferrous sulfate 325 mg (65 mg iron) tablet (FeroSul) 325 mg PO DAILY SUPPLEMENT 30 days #0 tabs 02/24/24 acetaminophen 500 mg tablet 1,000 mg (2 x 500 mg) PO Q6H PRN PRN Pain Score 1-5 #0 tabs 03/07/24 potassium chloride 20 mEq tablet,extended release(part/cryst) 20 meq PO DAILYCM 30 days #30 tabs 03/07/24 Hospital Course Operations None Procedures None Summary of Care Provided Minutes Spent on Discharge: 35 Hospital Course: 73 year old male with below past medical history significant for chronic i ndwelling hancock catheter hospitalized for complicated UTI, viral pneumonia, admitted to TCU with debility, here for rehabilitation, strengthening, prior to discharge home alone. Discharge home alone 03/10/2024, [employer] PT/OT. Physical Exam Const alert General Appearance: cooperative HEENT normocephalic Eyes PERRL and EOMs intact bilaterally Neck supple, no JVD and no carotid bruits Resp normal respiratory effort, normal air movement and clear to auscultation bilaterally Cardio regular rate and regular rhythm GI normal to inspection, nondistended, normoactive bowel sounds, non-tender and non-distended Bladder / Kidney Exam: catheter in place urethral Extremity normal capillary refill General Extremity: Negative for edema Skin no rashes or lesions noted General Skin Exam: no breakdown Psych affect normal Appearance: appropriate Weight / BMI Weight Weight: 97.205 kg Body Mass Index (BMI) 29.9 ABG / Lab / Microbiology Data 03/03/24 05:14 03/06/24 05:21 D/C Instructions Discharge Diet: No restrictions Discharge Activity: Return to Normal Activity, May Shower and Use Walker Weight Bearing Status: Weight bearing as tolerated Call your doctor if you observe: Fever of 101 or Higher, Inability to urinate, Inability to have a bowel movement, Shortness of breath, Dizziness, Fainting spells, Swelling in the ankles, Chest pain and Uncontrolled pain Additional Instructions: Discharge home alone 03/10/2024, [employer] PT/OT. Meaningful Use Info Meaningful Use Diagnoses (Choose all that apply): None applicable Discharge Plan Admission Admit Date/Time: 02/24/24 11:05 Primary Reason for Your Visit: Debility. Attending Provider: Nhan White Chi Primary Care Provider: Marbella Zaidi Instructions Additional Instructions / Restrictions: Discharge home alone 03/10/2024, [employer] PT/OT. Discharge Orders/Prescriptions Prescriptions: New acetaminophen 500 mg Tablet 1,000 mg PO Q6H PRN PRN (Reason: Pain Score 1-5) Qty: 0 0RF potassium chloride 20 mEq Tablet,Er Particles/Crystals 20 meq PO DAILYCM 30 Days Qty: 30 0RF Continued amlodipine 10 mg tablet 10 mg PO DAILY gabapentin 300 mg capsule 600 mg PO TID tamsulosin 0.4 mg capsule 0.4 mg PO QHS trazodone 50 mg tablet 50 mg PO QHS Patient Comments: pt req an inccrease in dosage because 50mg isnt working for me lisinopril 20 mg tablet 20 mg PO DAILY Hold Instructions: Resume on 01/15/24. bupropion HCl 300 mg tablet extended release 24 hr 300 mg PO DAILY melatonin 5 mg tablet 5 mg PO QHS meclizine 12.5 mg tablet 12.5 mg PO TID ferrous sulfate [FeroSul] 325 mg (65 mg iron) tablet 325 mg PO DAILY 30 Days Qty: 0 0RF Referrals / Follow Up: Marbella Zaidi PA [Primary Care Provider] - 03/13/24 2:00 pm (Will see Christy Marinelli ELECTRONIC TEST TECHNICIAN) Disposition Disposition (needs filled in before D/C Order can be placed): Home, Self Care
[2024-03-07] MEDS: MELATONIN 10 MG TABLET 5 MG PO (22:01)
[2024-03-07] MEDS: buPROPion (XL) 300 MG TABLET.XL PO (22:01)
[2024-03-07] MEDS: traZODone 50 MG Tablet PO (22:01)
[2024-03-07] MEDS: Tamsulosin HCl 0.4 MG Capsule PO (22:02)
[2024-03-08] MEDS: Gabapentin 300 MG Capsule 600 MG PO ×3 (06:09→22:00)
[2024-03-08] MEDS: Enoxaparin 40 MG/0.4 ML Syringe SC (06:09)
[2024-03-08] MEDS: Meclizine 12.5 MG Tablet PO ×3 (06:09→22:05)
[2024-03-08] MEDS: Naproxen 500 MG Tablet PO (09:08)
[2024-03-08] MEDS: Potassium Chloride Oral Tablet 20 MEQ PO (09:09)
[2024-03-08] MEDS: Menthol/Lanolin/Calamine/Znox 113 GM Tube 1 APPLIC TOPICAL ×2 (09:09→22:07)
[2024-03-08] MEDS: Ferrous Sulfate 325 MG Tablet PO (09:09)
[2024-03-08] MEDS: amLODIPine 10 MG Tablet PO (09:09)
[2024-03-08] MEDS: Lisinopril 20 MG Tablet PO (09:10)
[2024-03-08] MEDS: Senna/Docusate Sodium 1 Tablet PO (09:17)
--- NOTE | 2024-03-08 09:19 | NURSING ---
NO BM IN 3 DAYS. PRN SENOKOT AND PRUNE JUICE WITH BUTTER GIVEN.
[2024-03-08 09:20] VITALS: BP 105/63; PULSE 95
--- NOTE | 2024-03-08 12:39 | MDS.RN ---
Information for the MDS was obtained from review of the clinical record, interview of resident, staff, and direct observation of resident?s care.
[2024-03-08 12:51] VITALS: BP 104/61; PULSE 72; RESP 14; TEMP 36.3; O2SAT 98
--- NOTE | 2024-03-08 15:37 | CASEMGMT ---
Social Work SW met with patient to discuss DC plans. This worker encourage pt to consider HHC vs outpatient therapy as pt would have to walk out his mitzy to get to the transportation to outpatient. Pt agreed to try home health for short term until he feels strong enough to do outpatient. Pt stated he would like to use [facility]. SW left message for [facility] for referral for PT/OT/SN. MARGARITA Le
[2024-03-08] MEDS: MELATONIN 10 MG TABLET 5 MG PO (22:04)
[2024-03-08] MEDS: Tamsulosin HCl 0.4 MG Capsule PO (22:04)
[2024-03-08] MEDS: traZODone 50 MG Tablet PO (22:04)
[2024-03-08] MEDS: buPROPion (XL) 300 MG TABLET.XL PO (22:05)
[2024-03-09] MEDS: Gabapentin 300 MG Capsule 600 MG PO ×3 (05:32→22:29)
[2024-03-09] MEDS: Meclizine 12.5 MG Tablet PO ×3 (05:32→22:29)
[2024-03-09] MEDS: Enoxaparin 40 MG/0.4 ML Syringe SC (05:33)
[2024-03-09] MEDS: amLODIPine 10 MG Tablet PO (08:21)
[2024-03-09] MEDS: Lisinopril 20 MG Tablet PO (08:21)
[2024-03-09] MEDS: Potassium Chloride Oral Tablet 20 MEQ PO (08:21)
[2024-03-09] MEDS: Ferrous Sulfate 325 MG Tablet PO (08:21)
[2024-03-09] MEDS: Menthol/Lanolin/Calamine/Znox 113 GM Tube 1 APPLIC TOPICAL ×2 (08:23→22:29)
[2024-03-09 08:26] VITALS: BP 116/65; PULSE 86
[2024-03-09] MEDS: Naproxen 500 MG Tablet PO (09:45)
[2024-03-09 13:19] VITALS: BP 104/59; PULSE 82; RESP 16; TEMP 36.4; O2SAT 92
--- NOTE | 2024-03-09 13:55 | CASEMGMT ---
Social Work [facility] returned call and stated they will be able to follow pt at discharge and will begin services on 03/13/24 with possibility of going out on 03/11/24. SW updated patient on same. Kim AVILA
[2024-03-09] MEDS: Acetaminophen 500 MG Tablet 1000 MG PO (20:14)
[2024-03-09 20:20] VITALS: PULSE 82; O2SAT 94
[2024-03-09] MEDS: Tamsulosin HCl 0.4 MG Capsule PO (22:29)
[2024-03-09] MEDS: buPROPion (XL) 300 MG TABLET.XL PO (22:29)
[2024-03-09] MEDS: traZODone 50 MG Tablet PO (22:29)
[2024-03-09] MEDS: MELATONIN 10 MG TABLET 5 MG PO (22:29)
[2024-03-10] MEDS: Gabapentin 300 MG Capsule 600 MG PO (05:09)
[2024-03-10] MEDS: Meclizine 12.5 MG Tablet PO (05:09)
[2024-03-10] MEDS: Enoxaparin 40 MG/0.4 ML Syringe SC (05:09)
[2024-03-10 05:14] VITALS: PULSE 81; O2SAT 93
[2024-03-10 05:53] LABS: Absolute Lymphocyte Count 1.82 X10^3/uL (0.83-4.51); Absolute Neutrophil Count 4.1 X10^3/uL (2.0-7.7); Basophil# 0.11 X10^3/uL; Basophil% 1.5 % (0-1); Eosinophil# 0.32 X10^3/uL; Eosinophils% 4.5 % (0-5); Hematocrit 35.1 % (40-54); Hemoglobin 11.1 g/dL (13.0-16.5); Lymphocyte # 1.82 X10^3/ul (0.83-4.51); Lymphocyte % 25.6 % (19-41); Mean Corp Hgb Conc 31.6 g/dL (32-36); Mean Corpuscular Hgb 29.8 pg (27.0-32.0); Mean Corpuscular Volume 94.4 fL (80-94); Mean Platelet Vol. 9.2 fl (6.2-12.0); Monocyte# 0.72 X10^3/uL; Monocyte% 10.1 % (0-10); NRBC Flagged by Analyzer 0 % (0-5); Neutrophil # 4.12 X10^3/uL (2.7-7.7); Neutrophil % 57.9 % (47-70); Platelet Count 322 K/mm3 (150-450); RBC Distribution Width CV 16.3 % (11.6-14.6); RBC Distribution Width SD 56.6 fl (35.1-43.9); Red Blood Count 3.72 M/mm3 (4.6-6.2); White Blood Count 7.1 K/mm3 (4.4-11.0)
[2024-03-10 06:14] LABS: Anion Gap 4 (5-15); BUN 31 mg/dL (7-18); BUN/Creat Ratio 22.1 RATIO (10-20); Calcium,Total 9.3 mg/dL (8.5-10.1); Chloride 107 mmol/L (98-107); EST Glomerular Filtration Rate 53 mL/min (>60); Est Glom Filt Rate - Afr Amer 64 mL/min (>60); Estimated Creatinine Clearance 55.04 ml/min; Glucose 91 mg/dL (74-106); Potassium 4.6 mmol/L (3.5-5.1); Sodium Level 136 mmol/L (136-145)
[2024-03-10] MEDS: Ferrous Sulfate 325 MG Tablet PO (08:12)
[2024-03-10] MEDS: amLODIPine 10 MG Tablet PO (08:12)
[2024-03-10] MEDS: Potassium Chloride Oral Tablet 20 MEQ PO (08:12)
[2024-03-10] MEDS: Lisinopril 20 MG Tablet PO (08:12)
[2024-03-10] MEDS: Menthol/Lanolin/Calamine/Znox 113 GM Tube 1 APPLIC TOPICAL (08:13)
[2024-03-10] MEDS: Naproxen 500 MG Tablet PO (09:53)
--- NOTE | 2024-03-10 11:03 | CASEMGMT ---
Social Work SW met with pt and completed MDS interviews. BIMS PHQ2 0/1 Pt stated he is happy about going home. Pt stated his phone does not work getting calls in and [facility] should call his friend Jocelin to set up appointments. SW updated [facility]. MARGARITA Le
[2024-03-10 11:39] VITALS: BP 109/81; PULSE 91; RESP 18; TEMP 36; O2SAT 97
== END 2024-03-10 11:40 | disposition home health service (06) | DRG 949 ==
PROVIDERS: Admitting Provider Family Medicine Geriatric Medicine; PCP Physician Assistant; Referring Provider Family Medicine Geriatric Medicine; Visit Provider Family Medicine Geriatric Medicine
DX: T83.511D Infection and inflammatory reaction due to indwelling urethral catheter, subsequent encounter (principal); J12.9 Viral pneumonia, unspecified; G95.20 Unspecified cord compression; N39.0 Urinary tract infection, site not specified; I10 Essential (primary) hypertension; D50.9 Iron deficiency anemia, unspecified; F32.A Depression, unspecified; G62.9 Polyneuropathy, unspecified; H81.10 Benign paroxysmal vertigo, unspecified ear; R53.81 Other malaise; G47.00 Insomnia, unspecified; B95.2 Enterococcus as the cause of diseases classified elsewhere; N31.9 Neuromuscular dysfunction of bladder, unspecified; Z87.891 Personal history of nicotine dependence; N40.0 Benign prostatic hyperplasia without lower urinary tract symptoms; B96.5 Pseudomonas (aeruginosa) (mallei) (pseudomallei) as the cause of diseases classified elsewhere; Y73.1 Therapeutic (nonsurgical) and rehabilitative gastroenterology and urology devices associated with adverse incidents; Z79.899 Other long term (current) drug therapy; Z86.19 Personal history of other infectious and parasitic diseases
CPT/HCPCS: 36415; 80048; 85025; 92610; 93005; 97110; 97116; 97162; 97166; 97530; 97535; 97802

== ENCOUNTER → 2024-04-04 | Outpatient (CLI) | payer MEDICARE, SELFPAY ==
[2024-04-04 18:17] LABS: Mucous, Urine 0 SEEN /hpf (<or=2+); Squamous Epithelial Cells - UA 0 SEEN /hpf (0-5)
[2024-04-04 18:33] LABS: Color, Urine Yellow (Yellow); Glucose, Dipstick Normal (Normal); Ketone-Dipstick Negative (Negative); Leukocyte Esterase-Dipstick 500 /ul (Negative); Nitrite-Dipstick Negative (Negative); Occult Blood-Urine 150 /ul (Negative); Protein-Dipstick 100 mg/dl (Negative); Urine Bilirubin Dipstick Negative (Negative); Urine Clarity Cloudy (Clear); Urine Urobilinogen Normal (Normal)
[2024-04-04 19:15] LABS: Bacteria 3+ /hpf (None Seen); Red Blood Cells-Urine 0-5 SEEN /hpf (0-5); Triple Phosphate Crystals Ur 2+ /hpf (<or=1+); White Blood Cells 0-5 SEEN /hpf (0-5)
== END | disposition home or self-care (01) ==
PROVIDERS: PCP Physician Assistant; Referring Provider Physician Assistant; Visit Provider Physician Assistant
DX: R82.90 Unspecified abnormal findings in urine (principal)
CPT/HCPCS: 81001; 87077; 87086; 87088; 87186

== ENCOUNTER 2024-05-14 13:56 | Emergency (ER) | payer MEDICARE, SELFPAY ==
[2024-05-14 14:06] VITALS: BP 139/84; PULSE 94; RESP 18; TEMP 36.9; O2SAT 96; BMI 31.3
--- NOTE | 2024-05-14 14:34 | EX.ED.DYSGE1 ---
HPI <AMANDO Saavedra - Last Filed: 05/14/24 15:51> History of Present Illness Chief Complaint: Dowling C/O Narrative Narrative: 73-year-old male has history of BPH with indwelling Dowling catheter. He states it was changed a month ago from 16 to a 20 Turkish because it got clogged. It has not been draining since this morning and it is leaking where the catheter exits the penis causing pain. He denies fever, chills, flank or abdominal pain or hematuria. PFSH <AMANDO Saavedra - Last Filed: 05/14/24 15:51> [facility] Medical History (Updated 05/14/24 @ 15:41 by AMANDO Saavedra) Vision loss of right eye Anxiety Depression GERD (gastroesophageal reflux disease) Hypertension Right femoral fracture History of fractured rib (08/12/20) Anxiety Essential (primary) hypertension Hepatitis A Osteoarthritis Home Medications ?Medication ?Instructions ?Recorded ?Last Taken ?Type amlodipine 10 mg tablet 10 mg PO DAILY BLOOD PRESSURE 10/28/20 01/08/24 History gabapentin 300 mg capsule 600 mg PO TID NEUROPATHY 03/29/22 01/08/24 History tamsulosin 0.4 mg capsule 0.4 mg PO QHS PROSTATE 03/11/23 01/08/24 History bupropion HCl 300 mg 24 hr tablet, 300 mg PO DAILY DEPRESSION 09/28/23 01/08/24 History extended release lisinopril 20 mg tablet 20 mg PO DAILY BLOOD PRESSURE 09/28/23 01/08/24 History melatonin 5 mg tablet 5 mg PO QHS SLEEP 09/28/23 01/08/24 History trazodone 50 mg tablet 50 mg PO QHS SLEEP 09/28/23 02/16/24 History meclizine 12.5 mg tablet 12.5 mg PO TID dizziness 01/09/24 Unknown History ferrous sulfate 325 mg (65 mg 325 mg PO DAILY SUPPLEMENT 30 02/24/24 01/08/24 Rx iron) tablet (FeroSul) days #0 tabs acetaminophen 500 mg tablet 1,000 mg (2 x 500 mg) PO Q6H PRN 03/07/24 Unknown Rx PRN Pain Score 1-5 #0 tabs potassium chloride 20 mEq 20 meq PO DAILYCM 30 days #30 tabs 03/07/24 Unknown Rx tablet,extended release(part/cryst) ciprofloxacin HCl 500 mg tablet 500 mg PO BID 7 days #14 tabs 05/14/24 Unknown Rx (Cipro) Allergy/AdvReac Type Severity Reaction Status Date / Time diltiazem (From Cardizem) AdvReac unknown Verified 02/15/24 20:24 losartan (From Hyzaar) AdvReac unknown Verified 02/15/24 20:24 metoprolol (From Lopressor) AdvReac unknown Verified 02/15/24 20:24 valsartan (From Diovan) AdvReac unknown Verified 02/15/24 20:24 Family History Mother Heart disease Cancer breast Sister Heart disease Surgical History (Updated 03/18/24 @ 00:04 by Corrine Lyons) History of lumbar laminectomy for spinal cord decompression History of shoulder surgery History of elbow surgery History of hip replacement Social History (Updated 02/24/24 @ 16:[address] Nhan White MD) household members: none Smoking Status: Former smoker quit date: 11/22/92 pack-years: 46 alcohol intake: former year quit: 1991 substance use type: does not use ROS <AMADNO Saavedra - Last Filed: 05/14/24 15:51> ROS ED ROS Narrative Constitutional: Negative for fever, chills, malaise. GI: Negative for abdominal pain, nausea, vomiting. : Negative for hematuri.a EXAM <AMANDO Saavedra - Last Filed: 05/14/24 15:51> Physical Exam Narrative Exam Narrative: CONST: Patient sitting in no acute distress. EYES: Normal inspection. NECK: Normal inspection. RESP: No respiratory distress, CTAB. CVS: Regular rate and rhythm, no murmur, no gallop. ABD: Soft and nontender, no guarding or rebound, nondistended. : Normal appearance of penis and scrotum with [address] with no active leakage, clogged sediment in the Dowling tube with no urine in the bag. SKIN: Color normal, no rash, warm, dry, intact. EXTREMITIES: Normal appearance, no pedal edema. NEURO: Alert and answering questions appropriately. PSYCH: Normal affect. Const Vital Signs: 05/14/24 14:06 05/14/24 16:00 Temperature 98.5 F Temperature Source Oral Pulse Rate 94 74 Respiratory Rate 18 18 Blood Pressure 139/84 H 107/86 H Blood Pressure Mean 102 93 Pulse Ox 96 96 Oxygen Delivery Method Room Air Room Air <Dr. Selvin Pretty MD - Last Filed: 05/14/24 17:00> Physical Exam Const Vital Signs: 05/14/24 14:06 05/14/24 16:00 Temperature 98.5 F Temperature Source Oral Pulse Rate 94 74 Respiratory Rate 18 18 Blood Pressure 139/84 H 107/86 H Blood Pressure Mean 102 93 Pulse Ox 96 96 Oxygen Delivery Method Room Air Room Air MDM <AMANDO Saavedra - Last Filed: 05/14/24 15:51> [facility] MDM Narrative Medical decision making narrative: 73-year-old male presents due to a clogged Dowling catheter since this morning. He states he has recurrent issues with this. It was last changed a month ago. He appears well and nontoxic and is afebrile and hemodynamically stable. Abdomen soft, nontender, nondistended. Dowling catheter tubing has small amount of white sediment throughout and is not draining. The nursing staff replaced it with another 20 Turkish without complication and it is now drained about 200 cc of clear yellow urine. BMP shows normal creatinine of 1.3. UA is nitrite positive with RBCs/WBCs and rare bacteria so I will send culture and treat with Cipro. He states he has follow-up with his urologist in 9 days. I recommend he call them in a few days so they can access the urine culture results. Patient was comfortable with this plan and discharged in stable condition. Lab Data Attestation: I reviewed the patient's lab results. Labs: Laboratory Results - last 24 hr 05/14/24 05/14/24 14:50 15:00 Sodium 133 L Potassium 4.6 Chloride 105 Carbon Dioxide 22.0 Anion Gap 6 BUN 20 H Creatinine 1.30 Estim Creat Clear Calc 60.57 Est GFR (MDRD) Af Amer 69 Est GFR (MDRD) Non-Af 57 L BUN/Creatinine Ratio 15.4 Glucose 101 Calcium 9.1 Urine Color Yellow Urine Clarity Sl. Cloudy Urine pH 7.0 Ur Specific [place] 1.010 Urine Protein 30 H Urine Glucose (UA) Normal Urine Ketones Negative Urine Occult Blood 250 H Urine Nitrite Positive H Urine Bilirubin Negative Urine Urobilinogen Normal Ur Leukocyte Esterase 500 H Urine RBC 10-25 SEEN Urine WBC >100 SEEN Ur Squamous Epith Cells 0-5 SEEN Amorphous Sediment 1+ PHOS Urine Bacteria RARE Urine Mucus 0 SEEN <Dr. Selvin Pretty MD - Last Filed: 05/14/24 17:00> [facility] Narrative Medical decision making narrative: 73-year-old male presents due to a clogged Dowling catheter since this morning. He states he has recurrent issues with this. It was last changed a month ago. He appears well and nontoxic and is afebrile and hemodynamically stable. Abdomen soft, nontender, nondistended. Dowling catheter tubing has small amount of white sediment throughout and is not draining. The nursing staff replaced it with another 20 Turkish without complication and it is now drained about 200 cc of clear yellow urine. BMP shows normal creatinine of 1.3. UA is nitrite positive with RBCs/WBCs and rare bacteria so I will send culture and treat with Cipro. He states he has follow-up with his urologist in 9 days. I recommend he call them in a few days so they can access the urine culture results. Patient was comfortable with this plan and discharged in stable condition. I have personally performed a face to face assessment of the patient and have reviewed the INOCENCIO Note. I performed a substantive portion of the visit including all aspects of the following. My mcdaniels findings include: History is 73-year-old male Dowling catheter problem. Catheter was changed is flowing well. Electrolytes unremarkable other sodium 133. His BUN and creatinine are 20 and 1.3. UA looks infected with greater than 100 white cells and positive nitrates. A culture will be sent he will be started on Cipro with first dose given here. Exam is [well-appearing 73-year-old male. Vital signs stable afebrile. H EENT exam unremarkable. Neck nontender. Lungs clear equal symmetrical bilaterally. Heart regular rhythm no murmur. Abdomen soft nontender tender. Nondistended. Dowling catheter in place. Clear yellow urine. Moving all 4 extremities. Nontender no edema. He is awake alert.] Medical Decision Making [patient I discussed the plan is comfortable with that. Culture will be sent. Outpatient follow-up.] Other additions or changes: [None] Lab Data Lab results narrative: Electrolytes show sodium 133. BUN of 29 creatinine 1.3. Glucose 101. Urinalysis positive for nitrates, greater than 100 white cells and rare bacteria. Treat as UTI and culture sent. Labs: Laboratory Results - last 24 hr 05/14/24 05/14/24 14:50 15:00 Sodium 133 L Potassium 4.6 Chloride 105 Carbon Dioxide 22.0 Anion Gap 6 BUN 20 H Creatinine 1.30 Estim Creat Clear Calc 60.57 Est GFR (MDRD) Af Amer 69 Est GFR (MDRD) Non-Af 57 L BUN/Creatinine Ratio 15.4 Glucose 101 Calcium 9.1 Urine Color Yellow Urine Clarity Sl. Cloudy Urine pH 7.0 Ur Specific [place] 1.010 Urine Protein 30 H Urine Glucose (UA) Normal Urine Ketones Negative Urine Occult Blood 250 H Urine Nitrite Positive H Urine Bilirubin Negative Urine Urobilinogen Normal Ur Leukocyte Esterase 500 H Urine RBC 10-25 SEEN Urine WBC >100 SEEN Ur Squamous Epith Cells 0-5 SEEN Amorphous Sediment 1+ PHOS Urine Bacteria RARE Urine Mucus 0 SEEN Discharge Plan Triage Chief Complaint: Dowling C/O ED Midlevel Provider: Yudy Gomez ED Provider: Selvin Pretty Dx/Rx/DC Orders Clinical Impression: Complication, blocked Dowling catheter, Complicated urinary tract infection Instructions: ED Bladder Infection, Male (Adult) Prescriptions: New ciprofloxacin HCl [Cipro] 500 mg tablet 500 mg PO BID 7 Days Qty: 14 0RF No Action amlodipine 10 mg tablet 10 mg PO DAILY gabapentin 300 mg capsule 600 mg PO TID tamsulosin 0.4 mg capsule 0.4 mg PO QHS trazodone 50 mg tablet 50 mg PO QHS Patient Comments: pt req an inccrease in dosage because 50mg isnt working for me lisinopril 20 mg tablet 20 mg PO DAILY bupropion HCl 300 mg tablet extended release 24 hr 300 mg PO DAILY melatonin 5 mg tablet 5 mg PO QHS meclizine 12.5 mg tablet 12.5 mg PO TID acetaminophen 500 mg Tablet 1,000 mg PO Q6H PRN PRN (Reason: Pain Score 1-5) Qty: 0 0RF potassium chloride 20 mEq Tablet,Er Particles/Crystals 20 meq PO DAILYCM 30 Days Qty: 30 0RF ferrous sulfate [FeroSul] 325 mg (65 mg iron) tablet 325 mg PO DAILY 30 Days Qty: 0 0RF Primary Care Provider: Marbella Zaidi Referrals: Marbella Zaidi PA [Primary Care Provider] - Activity Restrictions/Additional Instructions: Please take antibiotics and follow-up with your urologist. Call your PCP or urologist in 2 days and they can check on the urine culture results. Print Language: Syrian Disposition Disposition: Home, Self Care
[2024-05-14 14:54] LABS: Mucous, Urine 0 SEEN /hpf (<or=2+)
[2024-05-14 15:08] LABS: Color, Urine Yellow (Yellow); Glucose, Dipstick Normal (Normal); Ketone-Dipstick Negative (Negative); Leukocyte Esterase-Dipstick 500 /ul (Negative); Nitrite-Dipstick Positive (Negative); Occult Blood-Urine 250 /ul (Negative); Protein-Dipstick 30 mg/dl (Negative); Urine Bilirubin Dipstick Negative (Negative); Urine Clarity Sl. Cloudy (Clear); Urine Urobilinogen Normal (Normal)
[2024-05-14 15:18] LABS: Red Blood Cells-Urine 10-25 SEEN /hpf (0-5); White Blood Cells >100 SEEN /hpf (0-5)
[2024-05-14 15:19] LABS: Amorphous Sediment 1+ PHOS; Bacteria RARE /hpf (None Seen); Squamous Epithelial Cells - UA 0-5 SEEN /hpf (0-5)
[2024-05-14 15:29] LABS: Anion Gap 6 (5-15); BUN 20 mg/dL (7-18); BUN/Creat Ratio 15.4 RATIO (10-20); Calcium,Total 9.1 mg/dL (8.5-10.1); Chloride 105 mmol/L (98-107); EST Glomerular Filtration Rate 57 mL/min (>60); Est Glom Filt Rate - Afr Amer 69 mL/min (>60); Estimated Creatinine Clearance 60.57 ml/min; Glucose 101 mg/dL (74-106); Potassium 4.6 mmol/L (3.5-5.1); Sodium Level 133 mmol/L (136-145)
[2024-05-14 16:00] VITALS: BP 107/86; PULSE 74; RESP 18; O2SAT 96
[2024-05-14] MEDS: Ciprofloxacin 500 MG Tablet PO (16:00)
== END 2024-05-14 17:34 | disposition home or self-care (01) ==
PROVIDERS: Physician Assistant; Emergency Provider Emergency Medicine; PCP Physician Assistant; Visit Provider Emergency Medicine
DX: T83.091A Other mechanical complication of indwelling urethral catheter, initial encounter (principal); Z87.891 Personal history of nicotine dependence; I10 Essential (primary) hypertension; N39.0 Urinary tract infection, site not specified; N40.0 Benign prostatic hyperplasia without lower urinary tract symptoms; B15.9 Hepatitis A without hepatic coma; Z79.899 Other long term (current) drug therapy; F41.9 Anxiety disorder, unspecified; F32.A Depression, unspecified; Z96.649 Presence of unspecified artificial hip joint
CPT/HCPCS: 51702; 80048; 81001; 87077; 87086; 87088; 87186; 99283

== ENCOUNTER 2024-05-19 22:42 | Emergency (ER) | payer MEDICARE, SELFPAY ==
[2024-05-19 22:43] VITALS: BP 135/77; PULSE 96; RESP 15; TEMP 36.2; O2SAT 97; BMI 29.2
--- NOTE | 2024-05-19 23:23 | EX.ED.DYSGE1 ---
HPI History of Present Illness Chief Complaint: Dowling C/O Informant: patient and family Narrative Narrative: Patient is a 73-year-old male with past medical history of hypertension and BPH as well as chronic indwelling Dowling catheter. He states that he noticed it was not draining for the past few hours. He states he may have caught it on something. He states that he has had issues with it in the past becoming dislodged. He denies any fevers or chills or pain but states he is concerned that the Dowling catheter has become dislodged because of his lack of urination over the last few hours and therefore comes in for evaluation [facility] Medical History (Updated 05/20/24 @ 00:[address] Luis Angel Whitney, DO) Vision loss of right eye Anxiety Depression GERD (gastroesophageal reflux disease) Hypertension Right femoral fracture History of fractured rib (08/12/20) Anxiety Essential (primary) hypertension Hepatitis A Osteoarthritis Home Medications ?Medication ?Instructions ?Recorded ?Last Taken ?Type amlodipine 10 mg tablet 10 mg PO DAILY BLOOD PRESSURE 10/28/20 01/08/24 History gabapentin 300 mg capsule 600 mg PO TID NEUROPATHY 03/29/22 01/08/24 History tamsulosin 0.4 mg capsule 0.4 mg PO QHS PROSTATE 03/11/23 01/08/24 History bupropion HCl 300 mg 24 hr tablet, 300 mg PO DAILY DEPRESSION 09/28/23 01/08/24 History extended release lisinopril 20 mg tablet 20 mg PO DAILY BLOOD PRESSURE 09/28/23 01/08/24 History melatonin 5 mg tablet 5 mg PO QHS SLEEP 09/28/23 01/08/24 History trazodone 50 mg tablet 50 mg PO QHS SLEEP 09/28/23 02/16/24 History acetaminophen 500 mg tablet 1,000 mg (2 x 500 mg) PO Q6H PRN 03/07/24 Unknown Rx PRN Pain Score 1-5 #0 tabs potassium chloride 20 mEq 20 meq PO DAILYCM 30 days #30 tabs 03/07/24 Unknown Rx tablet,extended release(part/cryst) ciprofloxacin HCl 500 mg tablet 500 mg PO BID 7 days #14 tabs 05/14/24 Unknown Rx (Cipro) Allergy/AdvReac Type Severity Reaction Status Date / Time diltiazem (From Cardizem) AdvReac unknown Verified 05/19/24 22:51 losartan (From Hyzaar) AdvReac unknown Verified 05/19/24 22:51 metoprolol (From Lopressor) AdvReac unknown Verified 05/19/24 22:51 valsartan (From Diovan) AdvReac unknown Verified 05/19/24 22:51 Family History Mother Heart disease Cancer breast Sister Heart disease Surgical History History of lumbar laminectomy for spinal cord decompression History of shoulder surgery History of elbow surgery History of hip replacement Social History household members: none Smoking Status: Former smoker quit date: 11/22/92 pack-years: 46 alcohol intake: former year quit: 1991 substance use type: does not use ROS ROS ED Constitutional Constitutional ED: Denies chills or fever(s) ENT ENT ED: Denies sore throat Cardiovascular Cardiovascular: Denies chest pain Respiratory/Chest Respiratory/Chest: Denies cough or dyspnea Gastrointestinal Gastrointestinal: Reports abdominal pain; Denies diarrhea, nausea or vomiting Genitourinary Genitourinary ED: Reports other Details: Positive anuria Musculoskeletal Musculoskeletal: Denies back pain or myalgias Integumentary Denies rash Neurologic Neurologic: Denies headache(s) Hematologic/Lymphatic Hematologic/Lymphatic: Denies easy bleeding or easy bruising EXAM Physical Exam Const Vital Signs: 05/19/24 22:43 05/19/24 23:35 Temperature 97.2 F L 97.9 F Temperature Source Temporal Pulse Rate 96 81 Respiratory Rate 15 18 Blood Pressure 135/77 H 135/78 H Blood Pressure Mean 96 97 Pulse Ox 97 97 Oxygen Delivery Method Room Air Positive well nourished and well developed General Appearance ED: well developed HEENT HEENT Narrative: Normocephalic atraumatic Eyes PERRL and EOMs intact bilaterally General Eye ED: Negative for scleral icterus Neck supple Resp normal respiratory effort and clear to auscultation bilaterally Cardio regular rate and regular rhythm GI non-tender and non-distended GI Narrative: Neuro organomegaly noted in the suprapubic/lower midline abdomen to suggest urinary retention Auscultation: normoactive bowel sounds Palpation: soft Narrative: Dowling catheter in place without blood or discharge around the urethral meatus and no testicular swelling or masses noted Back/Spine no CVA tenderness Extremity normal to inspection Neuro oriented x3 and CN's II-XII intact bilaterally Sensorium / Orientation: alert Psych mental status grossly normal Skin no rashes or lesions noted General Skin Exam: Negative for jaundice MDM MDM MDM Narrative Medical decision making narrative: Patient presented to the ER with stable vitals and reported lack of urine in his Dowling catheter for 3 to 4 hours. He states this become dislodged in the past and he is unsure if he caught it on anything but has concern this may have occurred. As his catheter is only not been draining for a few hours concern for acute kidney injury is low and I do not feel there is need to check blood work. Also his Dowling catheter has been in place for multiple months indicating is most likely colonized and I do not feel there is need to check a UA for potential infection. The patient's Dowling catheter balloon was deflated and the catheter was advanced as he had concern he may have caught it and dislodged it and after doing so there was return of urine. On exam he does not have organomegaly to suggest acute urinary retention and now the Dowling catheter is draining urine once again so there is no need for further workup and he is otherwise safe for discharge History & Record Review Discussion w/independent historian: Patient and Family Discharge Plan Triage Chief Complaint: Dowling C/O ED Provider: Luis Angel Whitney Dx/Rx/DC Orders Clinical Impression: Dowling catheter problem, Essential (primary) hypertension, BPH (benign prostatic hyperplasia) Instructions: ED Dowling Catheter, Care Prescriptions: No Action amlodipine 10 mg tablet 10 mg PO DAILY gabapentin 300 mg capsule 600 mg PO TID tamsulosin 0.4 mg capsule 0.4 mg PO QHS trazodone 50 mg tablet 50 mg PO QHS Patient Comments: pt req an inccrease in dosage because 50mg isnt working for me lisinopril 20 mg tablet 20 mg PO DAILY bupropion HCl 300 mg tablet extended release 24 hr 300 mg PO DAILY melatonin 5 mg tablet 5 mg PO QHS acetaminophen 500 mg Tablet 1,000 mg PO Q6H PRN PRN (Reason: Pain Score 1-5) Qty: 0 0RF potassium chloride 20 mEq Tablet,Er Particles/Crystals 20 meq PO DAILYCM 30 Days Qty: 30 0RF ciprofloxacin HCl [Cipro] 500 mg tablet 500 mg PO BID 7 Days Qty: 14 0RF Primary Care Provider: Marbella Zaidi Referrals: Marbella Zaidi, PA [Primary Care Provider] - Print Language: Upper Sorbian Disposition Disposition: Home, Self Care Discharge Date/Time: 05/19/24 23:36
[2024-05-19 23:35] VITALS: BP 135/78; PULSE 81; RESP 18; TEMP 36.6; O2SAT 97
== END 2024-05-19 23:36 | disposition home or self-care (01) ==
PROVIDERS: Emergency Provider Emergency Medicine; PCP Physician Assistant; Visit Provider Emergency Medicine
DX: T83.018A Breakdown (mechanical) of other urinary catheter, initial encounter (principal); I10 Essential (primary) hypertension; Z87.891 Personal history of nicotine dependence; N40.0 Benign prostatic hyperplasia without lower urinary tract symptoms; B15.9 Hepatitis A without hepatic coma; F32.A Depression, unspecified; Z79.899 Other long term (current) drug therapy; Z96.649 Presence of unspecified artificial hip joint
CPT/HCPCS: 99282

== ENCOUNTER 2024-05-30 15:07 | Emergency (ER) | payer MEDICARE, SELFPAY ==
[2024-05-30 15:07] VITALS: BP 142/91; PULSE 102; RESP 14; TEMP 36.6; O2SAT 98
[2024-05-30 15:10] VITALS: BMI 29.2
[2024-05-30 16:50] LABS: Mucous, Urine 0 SEEN /hpf (<or=2+)
[2024-05-30 16:54] LABS: Color, Urine Amber (Yellow); Glucose, Dipstick Normal (Normal); Ketone-Dipstick 50 mg/dl (Negative); Leukocyte Esterase-Dipstick 500 /ul (Negative); Nitrite-Dipstick Positive (Negative); Occult Blood-Urine 250 /ul (Negative); Protein-Dipstick 500 mg/dl (Negative); Specific Gravity, Urine 1.015 (1.002-1.030); Urine Bilirubin Dipstick Negative (Negative); Urine Clarity Turbid (Clear); Urine Urobilinogen 1 mg/dl (Normal)
[2024-05-30 17:05] LABS: Amorphous Sediment 1+ PHOS; Bacteria 1+ /hpf (None Seen); Red Blood Cells-Urine > 100 SEEN /hpf (0-5); Squamous Epithelial Cells - UA 0-5 SEEN /hpf (0-5); White Blood Cells >100 SEEN /hpf (0-5)
[2024-05-30 17:07] VITALS: BP 126/78; PULSE 64; RESP 18; TEMP 37; O2SAT 98
--- NOTE | 2024-05-30 18:14 | EX.ED.GUMALE ---
HPI History of Present Illness Chief Complaint: Dowling C/O Narrative Narrative: 73-year-old male presents with urinary retention and constipation. He states that he has not had a bowel movement in 4 to 5 days. His history and physical is mildly limited secondary to dementia. States he is having problems with his memory. He states he had not urinated for 5 to 6 hours. RN states that he had complaints of urinary retention, but did not have a Dowling catheter. This was inserted in triage before he was roomed. He states he feels improved. He denies any fevers or chills, no nausea or vomiting. [facility] Medical History Vision loss of right eye Anxiety Depression GERD (gastroesophageal reflux disease) Hypertension Right femoral fracture History of fractured rib (08/12/20) Anxiety Essential (primary) hypertension Hepatitis A Osteoarthritis Home Medications ?Medication ?Instructions ?Recorded ?Last Taken ?Type amlodipine 10 mg tablet 10 mg PO DAILY BLOOD PRESSURE 10/28/20 01/08/24 History gabapentin 300 mg capsule 600 mg PO TID NEUROPATHY 03/29/22 01/08/24 History tamsulosin 0.4 mg capsule 0.4 mg PO QHS PROSTATE 03/11/23 01/08/24 History bupropion HCl 300 mg 24 hr tablet, 300 mg PO DAILY DEPRESSION 09/28/23 01/08/24 History extended release lisinopril 20 mg tablet 20 mg PO DAILY BLOOD PRESSURE 09/28/23 01/08/24 History melatonin 5 mg tablet 5 mg PO QHS SLEEP 09/28/23 01/08/24 History trazodone 50 mg tablet 50 mg PO QHS SLEEP 09/28/23 02/16/24 History acetaminophen 500 mg tablet 1,000 mg (2 x 500 mg) PO Q6H PRN 03/07/24 Unknown Rx PRN Pain Score 1-5 #0 tabs potassium chloride 20 mEq 20 meq PO DAILYCM 30 days #30 tabs 03/07/24 Unknown Rx tablet,extended release(part/cryst) ciprofloxacin HCl 500 mg tablet 500 mg PO BID 7 days #14 tabs 05/14/24 Unknown Rx (Cipro) ciprofloxacin HCl 500 mg tablet 500 mg PO BID #14 tabs 05/30/24 Unknown Rx (Cipro) polyethylene glycol 3350 17 17 g PO DAILY #119 grams 05/30/24 Unknown Rx gram/dose oral powder (Miralax) Allergy/AdvReac Type Severity Reaction Status Date / Time diltiazem (From Cardizem) AdvReac unknown Verified 05/30/24 15:08 losartan (From Hyzaar) AdvReac unknown Verified 05/30/24 15:08 metoprolol (From Lopressor) AdvReac unknown Verified 05/30/24 15:08 valsartan (From Diovan) AdvReac unknown Verified 05/30/24 15:08 Family History Mother Heart disease Cancer breast Sister Heart disease Surgical History History of lumbar laminectomy for spinal cord decompression History of shoulder surgery History of elbow surgery History of hip replacement Social History household members: none Smoking Status: Former smoker quit date: 11/22/92 pack-years: 46 alcohol intake: former year quit: 1991 substance use type: does not use ROS ROS ED ROS Narrative Constitutional: No fever, no chills. HEENT: No sore throat. No neck pain. No loss of vision. No rhinorrhea. Cardiovascular: No chest pain. No palpitations. No pedal edema. Respiratory: No cough, no shortness of breath. Abdominal: No abdominal pain. No nausea. No vomiting. Positive constipation for 4 to 5 days. Genitourinary: Inability to urinate for 5 to 6 hours. Musculoskeletal: No myalgias. No arthralgias. Neurologic: No headaches. No dizziness. No lightheadedness. Skin: No rash. No change in color. Psychiatric: No depression. No anxiety. EXAM Physical Exam Narrative Exam Narrative: Afebrile. Vital signs noted. HEENT: Normocephalic. Atraumatic. PERRL, EOMI. Neck soft and supple. No point tenderness or step off. Cardiovascular: Regular rate and rhythm. No murmurs, rubs, or gallops appreciated. Respiratory: No tachypnea. Lungs clear to auscultation bilaterally. Gastrointestinal: Abdomen soft, nontender, with normoactive bowel sounds. No rebound or guarding. Genitourinary: Dowling catheter in place draining darker yellow urine. Neurological: Awake. Alert. Nonfocal, nonlateralizing. Skin: No rash. Normal color. No pallor. Musculoskeletal: No pedal edema. Full range of motion extremities. Const Vital Signs: 05/30/24 15:07 05/30/24 17:07 Temperature 98 F 98.6 F Temperature Source Temporal Temporal Pulse Rate 102 H 64 Respiratory Rate 14 18 Blood Pressure 142/91 H 126/78 H Blood Pressure Mean 108 94 Pulse Ox 98 98 Oxygen Delivery Method Room Air Room Air MDM MDM MDM Narrative Medical decision making narrative: I reviewed the patient's prior records. He has history of neurogenic bladder and BPH. I have reviewed his prior visits that he has had recently, and he has always had indwelling Dowling catheter. I reconfirmed with the nurse, that he did not have a Dowling catheter in place when he was seen in triage and was registering for urinary retention. As he is draining urine, I feel that probably needs a chronic indwelling Dowling catheter for his neurogenic bladder. I sent off a UA and he has greater than 100 RBCs and greater than 100 WBCs with 1+ urine bacteria and positive nitrites. This was sent for culture. He has been treated with ciprofloxacin previously for his complicated UTI. He was given his first dose of Cipro here and a prescription written for 7 days to take twice a day. Additionally, I wrote him for MiraLAX for his constipation. I do not feel he requires laboratory work nor do I feel that he requires CT imaging. I feel he can be discharged to follow-up with urology and/or his primary care provider for his chronic indwelling Dowilng catheter problems and neurogenic bladder with complicated UTI. Disposition is discharged home in stable condition. Lab Data Labs: Laboratory Results - last 24 hr 05/30/24 16:46 Urine Color [place]da Urine Clarity Turbid Urine pH 8.0 Ur Specific [place] 1.015 Urine Protein 500 H Urine Glucose (UA) Normal Urine Ketones 50 H Urine Occult Blood 250 H Urine Nitrite Positive H Urine Bilirubin Negative Urine Urobilinogen 1 H Ur Leukocyte Esterase 500 H Urine RBC > 100 SEEN Urine WBC >100 SEEN Ur Squamous Epith Cells 0-5 SEEN Amorphous Sediment 1+ PHOS Urine Bacteria 1+ Urine Mucus 0 SEEN Discharge Plan Triage Chief Complaint: Dowling C/O ED Provider: Micheal Weathers Dx/Rx/DC Orders Clinical Impression: Urinary retention, Complicated UTI (urinary tract infection), Constipation Instructions: Leg Bag Care Dc, ED Constipation (Adult), ED Dowling Catheter, Care, ED Bladder Infection, Male (Adult) Prescriptions: New ciprofloxacin HCl [Cipro] 500 mg tablet 500 mg PO BID Qty: 14 0RF polyethylene glycol 3350 [Miralax] 17 gram/dose powder 17 g PO DAILY Qty: 119 0RF No Action amlodipine 10 mg tablet 10 mg PO DAILY gabapentin 300 mg capsule 600 mg PO TID tamsulosin 0.4 mg capsule 0.4 mg PO QHS trazodone 50 mg tablet 50 mg PO QHS Patient Comments: pt req an inccrease in dosage because 50mg isnt working for me lisinopril 20 mg tablet 20 mg PO DAILY bupropion HCl 300 mg tablet extended release 24 hr 300 mg PO DAILY melatonin 5 mg tablet 5 mg PO QHS acetaminophen 500 mg Tablet 1,000 mg PO Q6H PRN PRN (Reason: Pain Score 1-5) Qty: 0 0RF potassium chloride 20 mEq Tablet,Er Particles/Crystals 20 meq PO DAILYCM 30 Days Qty: 30 0RF ciprofloxacin HCl [Cipro] 500 mg tablet 500 mg PO BID 7 Days Qty: 14 0RF Primary Care Provider: Marbella Zaidi Referrals: Fan Slater MD [Med Staff - Active Staff] - As soon as possible Marbella Zaidi PA [Primary Care Provider] - As soon as possible Print Language: Chinese Disposition Disposition: Home, Self Care
[2024-05-30] MEDS: Ciprofloxacin 500 MG Tablet PO (18:23)
[2024-05-30 18:31] VITALS: BP 138/76; PULSE 64; RESP 18; TEMP 36.4; O2SAT 99
== END 2024-05-30 18:32 | disposition home or self-care (01) ==
PROVIDERS: Emergency Provider Emergency Medicine; PCP Physician Assistant; Visit Provider Emergency Medicine
DX: N39.0 Urinary tract infection, site not specified (principal); F03.90 Unspecified dementia, unspecified severity, without behavioral disturbance, psychotic disturbance, mood disturbance, and anxiety; I10 Essential (primary) hypertension; K59.00 Constipation, unspecified; Z87.891 Personal history of nicotine dependence; F32.A Depression, unspecified; Z79.899 Other long term (current) drug therapy; Z96.649 Presence of unspecified artificial hip joint; N40.1 Benign prostatic hyperplasia with lower urinary tract symptoms; R33.8 Other retention of urine
CPT/HCPCS: 51702; 81001; 87077; 87086; 87088; 87186; 99283; A4216

== ENCOUNTER 2024-06-17 18:07 | Emergency (ER) | payer MEDICARE, SELFPAY ==
[2024-06-17 18:08] VITALS: BP 141/107; PULSE 112; RESP 17; TEMP 36.2; O2SAT 95
--- NOTE | 2024-06-17 18:24 | EDS_ITS ---
HPI History of Present Illness Chief Complaint: Complaint Narrative Narrative: 73-year-old male presenting with urinary retention. He has a Dowling catheter in place which is no longer draining. He states has been like this for about 4 hours. He has suprapubic pressure. [facility] Medical History Vision loss of right eye Anxiety Depression GERD (gastroesophageal reflux disease) Hypertension Right femoral fracture History of fractured rib (08/12/20) Anxiety Essential (primary) hypertension Hepatitis A Osteoarthritis Home Medications ?Medication ?Instructions ?Recorded ?Last Taken ?Type amlodipine 10 mg tablet 10 mg PO DAILY BLOOD PRESSURE 10/28/20 01/08/24 History gabapentin 300 mg capsule 600 mg PO TID NEUROPATHY 03/29/22 01/08/24 History tamsulosin 0.4 mg capsule 0.4 mg PO QHS PROSTATE 03/11/23 01/08/24 History bupropion HCl 300 mg 24 hr tablet, 300 mg PO DAILY DEPRESSION 09/28/23 01/08/24 History extended release lisinopril 20 mg tablet 20 mg PO DAILY BLOOD PRESSURE 09/28/23 01/08/24 History melatonin 5 mg tablet 5 mg PO QHS SLEEP 09/28/23 01/08/24 History trazodone 50 mg tablet 50 mg PO QHS SLEEP 09/28/23 02/16/24 History acetaminophen 500 mg tablet 1,000 mg (2 x 500 mg) PO Q6H PRN 03/07/24 Unknown Rx PRN Pain Score 1-5 #0 tabs potassium chloride 20 mEq 20 meq PO DAILYCM 30 days #30 tabs 03/07/24 Unknown Rx tablet,extended release(part/cryst) ciprofloxacin HCl 500 mg tablet 500 mg PO BID 7 days #14 tabs 05/14/24 Unknown Rx (Cipro) ciprofloxacin HCl 500 mg tablet 500 mg PO BID #14 tabs 05/30/24 Unknown Rx (Cipro) polyethylene glycol 3350 17 17 g PO DAILY #119 grams 05/30/24 Unknown Rx gram/dose oral powder (Miralax) hydrocodone-acetaminophen 5-325mg 1 tab PO Q6H PRN PRN Pain 3 days 06/17/24 Unknown Rx 5mg-325mg #12 TABLETS Allergy/AdvReac Type Severity Reaction Status Date / Time diltiazem (From Cardizem) AdvReac unknown Verified 06/17/24 18:07 losartan (From Hyzaar) AdvReac unknown Verified 06/17/24 18:07 metoprolol (From Lopressor) AdvReac unknown Verified 06/17/24 18:07 valsartan (From Diovan) AdvReac unknown Verified 06/17/24 18:07 Family History Mother Heart disease Cancer breast Sister Heart disease Surgical History History of lumbar laminectomy for spinal cord decompression History of shoulder surgery History of elbow surgery History of hip replacement Social History household members: none Smoking Status: Former smoker quit date: 11/22/92 pack-years: 46 alcohol intake: former year quit: 1991 substance use type: does not use ROS ROS ED Constitutional Constitutional ED: Denies chills, fever(s) or sweats Eyes Eyes: Denies blurry vision or change in vision ENT ENT ED: Denies ear pain or sore throat Cardiovascular Cardiovascular: Denies chest pain, palpitations or racing heartbeat Respiratory/Chest Respiratory/Chest: Denies cough, dyspnea or sputum Gastrointestinal Gastrointestinal: Reports other Details: Suprapubic pressure ; Denies abdominal pain, constipation, diarrhea, nausea or vomiting Genitourinary Genitourinary ED: Reports other Details: Indwelling Dowling catheter not drained ; Denies dysuria, hematuria or urinary frequency Musculoskeletal Musculoskeletal: Denies arthralgias, myalgias or neck pain Integumentary Denies abscess, Abrasions or rash Neurologic Neurologic: Denies headache(s), paresthesias or weakness Psychiatric Psychiatric: Denies anxiety, depression, suicidal ideation or suicidal thoughts Endocrine Endocrinology: Denies polydipsia or polyuria EXAM Physical Exam Const Vital Signs: 06/17/24 18:08 Temperature 97.2 F L Temperature Source Temporal Pulse Rate 112 H Respiratory Rate 17 Blood Pressure 141/107 H Blood Pressure Mean 118 Pulse Ox 95 Oxygen Delivery Method Room Air Positive well nourished General Appearance ED: NAD HEENT Reports moist mucous membranes Eyes PERRL and EOMs intact bilaterally Resp normal respiratory effort Cardio regular rate and regular rhythm GI GI Narrative: Suprapubic pressure no CVA tenderness Neuro oriented x3 and CN's II-XII intact bilaterally Sensorium / Orientation: alert Motor Exam: strength 5/5 throughout Psych mental status grossly normal MDM MDM MDM Narrative Medical decision making narrative: 73-year-old male with suprapubic pressure and his Dowling catheter is not draining. We tried to make flatus but still not draining. We will replace it. After placing it patient was having intermittent pains and I think he is having bladder spasms but I had the nursing staff irrigate his bladder. They state they were getting clear liquid out. They have 1 small bit of sediment but no clots. I will write the patient a prescription for [place] for home. He was given 1 here in the ED. Return precautions were discussed. Impression: 1. Urinary retention 2. Bladder spasm Lab Data Attestation: I reviewed the patient's lab results. Discharge Plan Triage Chief Complaint: Complaint ED Provider: Norm Monte Dx/Rx/DC Orders Instructions: ED Urinary Retention, Male Prescriptions: New hydrocodone-acetaminophen 5-325 mg tablet 1 tab PO Q6H PRN PRN (Reason: Pain) 3 Days Qty: 12 0RF No Action amlodipine 10 mg tablet 10 mg PO DAILY gabapentin 300 mg capsule 600 mg PO TID tamsulosin 0.4 mg capsule 0.4 mg PO QHS trazodone 50 mg tablet 50 mg PO QHS Patient Comments: pt req an inccrease in dosage because 50mg isnt working for me lisinopril 20 mg tablet 20 mg PO DAILY bupropion HCl 300 mg tablet extended release 24 hr 300 mg PO DAILY melatonin 5 mg tablet 5 mg PO QHS acetaminophen 500 mg Tablet 1,000 mg PO Q6H PRN PRN (Reason: Pain Score 1-5) Qty: 0 0RF potassium chloride 20 mEq Tablet,Er Particles/Crystals 20 meq PO DAILYCM 30 Days Qty: 30 0RF ciprofloxacin HCl [Cipro] 500 mg tablet 500 mg PO BID 7 Days Qty: 14 0RF ciprofloxacin HCl [Cipro] 500 mg tablet 500 mg PO BID Qty: 14 0RF polyethylene glycol 3350 [Miralax] 17 gram/dose powder 17 g PO DAILY Qty: 119 0RF Primary Care Provider: Marbella Zaidi Referrals: Zaidi,M Aldo PA, PA [Primary Care Provider] - Print Language: Kazakh Disposition Disposition: Home, Self Care
[2024-06-17] MEDS: HYDROcodone Bitartrate/Apap 5/325 Tablet PO (18:59)
[2024-06-17 20:25] VITALS: BP 119/97; PULSE 96; RESP 16; O2SAT 97
[2024-06-17 20:26] VITALS: BP 119/97; PULSE 96; RESP 16; TEMP 35.7; O2SAT 97
== END 2024-06-17 20:42 | disposition home or self-care (01) ==
PROVIDERS: Emergency Provider Student in an Organized Health Care Education/Training Program; PCP Physician Assistant; Visit Provider Student in an Organized Health Care Education/Training Program
DX: R33.9 Retention of urine, unspecified (principal); Z87.891 Personal history of nicotine dependence; I10 Essential (primary) hypertension; N32.89 Other specified disorders of bladder; Z79.899 Other long term (current) drug therapy; F32.A Depression, unspecified; Z96.649 Presence of unspecified artificial hip joint
CPT/HCPCS: 51702; 99283; A4216

== ENCOUNTER 2024-06-21 15:42 | Emergency (ER) | payer MEDICARE, SELFPAY ==
[2024-06-21 15:43] VITALS: BP 111/87; PULSE 102; RESP 22; TEMP 36; O2SAT 100
--- NOTE | 2024-06-21 16:03 | EDS_ITS ---
HPI History of Present Illness Chief Complaint: Complaint Informant: patient Narrative Narrative: Patient states for the past 6 months or more he had an indwelling Dowling catheter because of neurogenic bladder related to a spinal issue that he ended up having surgery for. States he is chronically weak in his legs and has numbness from his umbilicus area down, uses a walker to walk usually. He is a couple different issues today, he woke up with his Dowling catheter full of blood this morning. He has had this 1 other time but last night when he went to bed it did not have any blood in it. He states has been flowing today. He states the catheter is hurting him in the penis and this has been the case for the past 5 days since he had his catheter replaced. That pain is no different today. He denies having any abdominal pain today or fever/chills or other GI symptoms. As a separate unrelated issue states he was walking with his walker 3 days ago and he went to turn with it and lost his balance and fell to the floor against his left shoulder and injured it. He denies having any other major injury except for a couple of scrapes which are healing. [id number] Medical History Vision loss of right eye Anxiety Depression GERD (gastroesophageal reflux disease) Hypertension Right femoral fracture History of fractured rib (08/12/20) Anxiety Essential (primary) hypertension Hepatitis A Osteoarthritis Home Medications ?Medication ?Instructions ?Recorded ?Last Taken ?Type amlodipine 10 mg tablet 10 mg PO DAILY BLOOD PRESSURE 10/28/20 01/08/24 History gabapentin 300 mg capsule 600 mg PO TID NEUROPATHY 03/29/22 01/08/24 History tamsulosin 0.4 mg capsule 0.4 mg PO QHS PROSTATE 03/11/23 01/08/24 History bupropion HCl 300 mg 24 hr tablet, 300 mg PO DAILY DEPRESSION 09/28/23 01/08/24 History extended release lisinopril 20 mg tablet 20 mg PO DAILY BLOOD PRESSURE 09/28/23 01/08/24 History melatonin 5 mg tablet 5 mg PO QHS SLEEP 09/28/23 01/08/24 History trazodone 50 mg tablet 50 mg PO QHS SLEEP 09/28/23 02/16/24 History acetaminophen 500 mg tablet 1,000 mg (2 x 500 mg) PO Q6H PRN 03/07/24 Unknown Rx PRN Pain Score 1-5 #0 tabs potassium chloride 20 mEq 20 meq PO DAILYCM 30 days #30 tabs 03/07/24 Unknown Rx tablet,extended release(part/cryst) polyethylene glycol 3350 17 17 g PO DAILY #119 grams 05/30/24 Unknown Rx gram/dose oral powder (Miralax) hydrocodone-acetaminophen 5-325mg 1 tab PO Q6H PRN PRN Pain 3 days 06/17/24 Unknown Rx 5mg-325mg #12 TABLETS cephalexin 500 mg capsule 500 mg PO Q6 7 days #28 CAPSULES 06/21/24 Unknown Rx Allergy/AdvReac Type Severity Reaction Status Date / Time diltiazem (From Cardizem) AdvReac unknown Verified 06/21/24 15:43 losartan (From Hyzaar) AdvReac unknown Verified 06/21/24 15:43 metoprolol (From Lopressor) AdvReac unknown Verified 06/21/24 15:43 valsartan (From Diovan) AdvReac unknown Verified 06/21/24 15:43 Family History Mother Heart disease Cancer breast Sister Heart disease Surgical History History of lumbar laminectomy for spinal cord decompression History of shoulder surgery History of elbow surgery History of hip replacement Social History household members: none Smoking Status: Former smoker quit date: 11/22/92 pack-years: 46 alcohol intake: former year quit: 1991 substance use type: does not use ROS ROS ED Constitutional Constitutional ED: Denies chills or fever(s) Eyes Eyes: Denies change in vision or diplopia ENT ENT ED: Denies rhinorrhea or sore throat Cardiovascular Cardiovascular: Denies chest pain or palpitations Respiratory/Chest Respiratory/Chest: Denies cough or dyspnea Gastrointestinal Gastrointestinal: Denies abdominal pain, diarrhea, nausea or vomiting Genitourinary Genitourinary ED: Reports hematuria and other Details: penis pain, see HPI Musculoskeletal Musculoskeletal: Reports extremity pain; Denies neck pain Integumentary Denies abscess or rash Neurologic Neurologic: Reports paresthesias and weakness; Denies headache(s) Psychiatric Psychiatric: Denies suicidal thoughts EXAM Physical Exam Const Vital Signs: 06/21/24 15:43 Temperature 96.8 F L Temperature Source Temporal Pulse Rate 102 H Respiratory Rate 22 H Blood Pressure 111/87 H Blood Pressure Mean 95 Pulse Ox 100 Oxygen Delivery Method Room Air Positive well nourished and well developed General Appearance ED: well developed and NAD HEENT Reports moist mucous membranes normocephalic and atraumatic Eyes PERRL and EOMs intact bilaterally Neck full ROM and supple Resp normal respiratory effort and clear to auscultation bilaterally Cardio regular rate, regular rhythm and no murmurs GI non-tender and non-distended Auscultation: normoactive bowel sounds Palpation: soft Narrative: normal penis. Catheter in place, tea-colored urine. pos flow. Back/Spine no CVA tenderness Extremity normal to inspection Extremity Narrative: Healing abrasion left lateral leg/knee; healing abrasion lateral left upper arm posteriorly. Full range of motion left shoulder, positive Yergason and tenderness at the biceps insertion anteriorly, no other bony tenderness of the left shoulder girdle. No acromioclavicular joint tenderness. No deformity. The patient abducts and flexes his arm up at the same time he states it is less painful than if he flexes forward. Positive speeds test. General Extremety ED: Negative for edema, pulses abnormal or tenderness General Extremity: Negative for edema or pulses abnormal Neuro oriented x3 and CN's II-XII intact bilaterally Neuro Narrative: Able to move all 4 extremities, weakness in the legs at baseline per patient. Decreased sensation in the feet more so than the rest of his legs and his lower abdomen which is abnormal as well. At baseline per patient. Sensorium / Orientation: awake and alert Psych mental status grossly normal Skin no rashes or lesions noted and no wounds MDM MDM MDM Narrative Medical decision making narrative: Regards to the patient's shoulder, his exam is mostly consistent with a proximal biceps injury or tendinitis. X-rays 3 views the left shoulder mitral rotation are negative for acute fracture radiology in agreement. With regards to his urine, we did irrigate him and he is producing cloudy yellow nonbloody urine subsequently in the catheter. Urinalysis is concerning for infection with bacteria, leukocyte on the dip, positive nitrite on the dip, the blood obviously, but a lack of pyuria. Given that he is not anticoagulated does not have another obvious reason to have hematuria, and no symptoms of kidney infection or obstructive uropathy/ureterolithiasis, I do not think he needs advanced imaging but I am going to assume this is infection until proven otherwise and I think that is reasonable. His labs are unremarkable, chronic renal sufficiency unchanged. I reviewed prior urine culture; he has had Pseudomonas but his most recent culture from earlier this month was greater than 100,000 CFU per mL of Proteus mirabilis sensitive to cephalosporins including first generation but resistant to sulfa, nitrofurantoin, and yolanda quinolones. Therefore I think cephalexin would be the most reasonable antibiotic to put him on for right now, and have him follow-up with his doctor or urologist who he states is in the [facility] system. He is comfortable with that plan. History & Record Review Additional record(s) reviewed:: Prior outpatient record Lab Data Attestation: I reviewed the patient's lab results. Labs: Laboratory Results - last 24 hr 06/21/24 06/21/24 16:11 16:16 WBC 9.1 RBC 4.66 Hgb 13.7 Hct 41.6 MCV 89.3 MCH 29.4 MCHC 32.9 RDW Std Deviation 47.6 H RDW Coeff of Matthew 14.6 Plt Count 325 MPV 9.0 Immature Gran % (Auto) 0.400 Neut % (Auto) 74.6 H Lymph % (Auto) 14.1 L [place] % (Auto) 7.4 Eos % (Auto) 2.6 Baso % (Auto) 0.9 Absolute Neuts (auto) 6.8 Absolute Lymphs (auto) 1.28 Nucleated RBC % 0 Sodium 137 Potassium 4.6 Chloride 106 Carbon Dioxide 25.0 Anion Gap 6 BUN 23 H Creatinine 1.31 H Est GFR (MDRD) Af Amer 69 Est GFR (MDRD) Non-Af 57 L BUN/Creatinine Ratio 17.6 Glucose 148 H Calcium 9.0 Urine Color Red Urine Clarity Cloudy Urine pH 9.0 Ur Specific [place] 1.015 Urine Protein 100 H Urine Glucose (UA) Normal Urine Ketones 5 H Urine Occult Blood 250 H Urine Nitrite Positive H Urine Bilirubin Negative Urine Urobilinogen Normal Ur Leukocyte Esterase 500 H Urine RBC > 100 SEEN Urine WBC 0-5 SEEN Ur Squamous Epith Cells 0-5 SEEN Triple Phos Crystals 2+ Amorphous Sediment 1+ Urine Bacteria 3+ Urine Mucus 0 SEEN Radiography Diagnostic Testing: Clinical Impression(s) from Imaging Studies Shoulder X-Ray 06/21/24 16:25 IMPRESSION: No acute osseous abnormalities. 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 Electronically Signed: Moiz Peters MD at 16:57 EDT Reading Location ID and State: [facility] [place] Tel , Service support , Discharge Plan Triage Chief Complaint: Complaint ED Provider: Ramiro Adames Dx/Rx/DC Orders Clinical Impression: Hematuria, Acute UTI, Injury of left shoulder Instructions: Hematuria: Possible Causes, ED Urinary Tract Infections in Men Prescriptions: New cephalexin 500 mg capsule 500 mg PO Q6 7 Days Qty: 28 0RF Continued amlodipine 10 mg tablet 10 mg PO DAILY gabapentin 300 mg capsule 600 mg PO TID tamsulosin 0.4 mg capsule 0.4 mg PO QHS trazodone 50 mg tablet 50 mg PO QHS Patient Comments: pt req an inccrease in dosage because 50mg isnt working for me lisinopril 20 mg tablet 20 mg PO DAILY bupropion HCl 300 mg tablet extended release 24 hr 300 mg PO DAILY melatonin 5 mg tablet 5 mg PO QHS acetaminophen 500 mg Tablet 1,000 mg PO Q6H PRN PRN (Reason: Pain Score 1-5) Qty: 0 0RF potassium chloride 20 mEq Tablet,Er Particles/Crystals 20 meq PO DAILYCM 30 Days Qty: 30 0RF hydrocodone-acetaminophen 5-325 mg tablet 1 tab PO Q6H PRN PRN (Reason: Pain) 3 Days Qty: 12 0RF polyethylene glycol 3350 [Miralax] 17 gram/dose powder 17 g PO DAILY Qty: 119 0RF Discontinued ciprofloxacin HCl [Cipro] 500 mg tablet 500 mg PO BID 7 Days Qty: 14 0RF ciprofloxacin HCl [Cipro] 500 mg tablet 500 mg PO BID Qty: 14 0RF Primary Care Provider: Marbella Zaidi Referrals: Marbella Zaidi PA [Primary Care Provider] - 2 Days (and/or your urologist) Print Language: Cape Verdean Disposition Disposition: Home, Self Care
[2024-06-21 16:18] LABS: Mucous, Urine 0 SEEN /hpf (<or=2+)
[2024-06-21 16:21] LABS: Color, Urine Red (Yellow); Glucose, Dipstick Normal (Normal); Ketone-Dipstick 5 mg/dl (Negative); Leukocyte Esterase-Dipstick 500 /ul (Negative); Nitrite-Dipstick Positive (Negative); Occult Blood-Urine 250 /ul (Negative); Protein-Dipstick 100 mg/dl (Negative); Specific Gravity, Urine 1.015 (1.002-1.030); Urine Bilirubin Dipstick Negative (Negative); Urine Clarity Cloudy (Clear); Urine Urobilinogen Normal (Normal)
--- NOTE | 2024-06-21 16:25 | RAD_ITS ---
EXAM: XR LEFT SHOULDER COMPLETE, 2 OR MORE VIEWS CLINICAL INDICATION: injury TECHNIQUE: Two or more views of the left shoulder. COMPARISON: No relevant prior studies available. FINDINGS: BONES/JOINTS: There is narrowing of the glenohumeral joint. No acute fracture. No subluxation. Normal alignment. No sclerotic or destructive changes observed. SOFT TISSUES: Unremarkable. No soft tissue swelling or gas. No radiopaque foreign body. RAD/Shoulder min 2 Views IMPRESSION: No acute osseous abnormalities. 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 Electronically Signed: Moiz Peters MD at 16:57 EDT ,
[2024-06-21 16:26] LABS: Squamous Epithelial Cells - UA 0-5 SEEN /hpf (0-5)
[2024-06-21 16:27] LABS: Amorphous Sediment 1+; Bacteria 3+ /hpf (None Seen); Red Blood Cells-Urine > 100 SEEN /hpf (0-5); Triple Phosphate Crystals Ur 2+ /hpf (<or=1+); White Blood Cells 0-5 SEEN /hpf (0-5)
[2024-06-21 16:28] LABS: Absolute Lymphocyte Count 1.28 X10^3/uL (0.83-4.51); Absolute Neutrophil Count 6.8 X10^3/uL (2.0-7.7); Basophil# 0.08 X10^3/uL; Basophil% 0.9 % (0-1); Eosinophil# 0.24 X10^3/uL; Eosinophils% 2.6 % (0-5); Hematocrit 41.6 % (40-54); Hemoglobin 13.7 g/dL (13.0-16.5); Lymphocyte # 1.28 X10^3/ul (0.83-4.51); Lymphocyte % 14.1 % (19-41); Mean Corp Hgb Conc 32.9 g/dL (32-36); Mean Corpuscular Hgb 29.4 pg (27.0-32.0); Mean Corpuscular Volume 89.3 fL (80-94); Monocyte# 0.67 X10^3/uL; Monocyte% 7.4 % (0-10); NRBC Flagged by Analyzer 0 % (0-5); Neutrophil # 6.78 X10^3/uL (2.7-7.7); Neutrophil % 74.6 % (47-70); Platelet Count 325 K/mm3 (150-450); RBC Distribution Width CV 14.6 % (11.6-14.6); RBC Distribution Width SD 47.6 fl (35.1-43.9); Red Blood Count 4.66 M/mm3 (4.6-6.2); White Blood Count 9.1 K/mm3 (4.4-11.0)
[2024-06-21 16:53] LABS: Anion Gap 6 (5-15); BUN 23 mg/dL (7-18); BUN/Creat Ratio 17.6 RATIO (10-20); Chloride 106 mmol/L (98-107); Creatinine, Serum 1.31 mg/dL (0.70-1.30); EST Glomerular Filtration Rate 57 mL/min (>60); Est Glom Filt Rate - Afr Amer 69 mL/min (>60); Glucose 148 mg/dL (74-106); Potassium 4.6 mmol/L (3.5-5.1); Sodium Level 137 mmol/L (136-145)
[2024-06-21 17:42] VITALS: BP 140/96; PULSE 102; RESP 22; TEMP 36; O2SAT 100
[2024-06-21] MEDS: Cephalexin 250 MG Capsule 500 MG PO (18:15)
== END 2024-06-21 18:23 | disposition home or self-care (01) ==
PROVIDERS: Emergency Provider Emergency Medicine; PCP Physician Assistant; Visit Provider Emergency Medicine
DX: N39.0 Urinary tract infection, site not specified (principal); I10 Essential (primary) hypertension; R31.9 Hematuria, unspecified; Z87.891 Personal history of nicotine dependence; N31.9 Neuromuscular dysfunction of bladder, unspecified; S40.912A Unspecified superficial injury of left shoulder, initial encounter; W18.30XA Fall on same level, unspecified, initial encounter
CPT/HCPCS: 73030; 80048; 81001; 85025; 87077; 87086; 87088; 87186; 99283; A4216

== ENCOUNTER 2024-09-12 17:33 | Inpatient (IN) | payer MEDICARE, SELFPAY ==
[2024-09-12 17:33] VITALS: BP 113/72; PULSE 85; RESP 16; TEMP 36.6; O2SAT 97
[2024-09-12 17:36] VITALS: BMI 30.2
--- NOTE | 2024-09-12 18:34 | ED.RN ---
PT GRUMBLING BECAUSE HE DOES NOT WANT TO TAKE HIS WET UNDERWEAR OFF, I TRIED TO EXPLAIN THAT I NEEDED THEM OFF SO I COULD CHANGE HIS LAWSON, THEN PT ANSWERED THE PHONE AND STARTED HAVING A CONVERSATION WITH THE PERSON ON THE OTHER END.
--- NOTE | 2024-09-12 18:48 | EKG12_ITS ---
Test Reason : Blood Pressure : / mmHG Vent. Rate : 081 BPM Atrial Rate : 081 BPM P-R Int : 182 ms QRS Dur : 100 ms QT Int : 392 ms P-R-T Axes : 027 -67 001 degrees QTc Int : 455 ms Normal sinus rhythm Left axis deviation Abnormal ECG Confirmed by GILSON CASTANON, FITO ([id number]), loan expeditor MIRIAM POLLARD ([id number]) on 09/14/2024 9:06:33 AM Referred By: YANNICK Confirmed By:FITO RIGGINS MD
--- NOTE | 2024-09-12 18:48 | RAD_ITS ---
INDICATION: WEAKNESS EXAMINATION/TECHNIQUE: X-RAY - XR Chest 1 View COMPARISON: February 17, 2024 FINDINGS: LINES/DEVICES: None. LUNGS: No consolidation, edema or effusion. No pneumothorax. MEDIASTINUM AND CARDIOVASCULAR STRUCTURES: Cardiac silhouette not enlarged. Central airways and mediastinal contour are unremarkable. 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 RAD/Chest 1 View (Portable) IMPRESSION: No radiographic evidence of acute cardiopulmonary disease. Electronically Signed: Tisha Gaxiola MD at 20:18 EDT ,
[2024-09-12 19:25] LABS: Absolute Lymphocyte Count 1.17 X10^3/uL (0.83-4.51); Basophil# 0.09 X10^3/uL; Basophil% 0.8 % (0-1); Eosinophil# 0.26 X10^3/uL; Eosinophils% 2.3 % (0-5); Hematocrit 40.1 % (40-54); Lymphocyte # 1.17 X10^3/ul (0.83-4.51); Lymphocyte % 10.2 % (19-41); Mean Corp Hgb Conc 32.4 g/dL (32-36); Mean Corpuscular Hgb 29.4 pg (27.0-32.0); Mean Corpuscular Volume 90.7 fL (80-94); Mean Platelet Vol. 8.8 fl (6.2-12.0); Monocyte# 0.86 X10^3/uL; Monocyte% 7.5 % (0-10); NRBC Flagged by Analyzer 0 % (0-5); Neutrophil # 9.02 X10^3/uL (2.7-7.7); Neutrophil % 78.8 % (47-70); Platelet Count 394 K/mm3 (150-450); RBC Distribution Width CV 13.6 % (11.6-14.6); RBC Distribution Width SD 45.3 fl (35.1-43.9); Red Blood Count 4.42 M/mm3 (4.6-6.2); White Blood Count 11.5 K/mm3 (4.4-11.0)
[2024-09-12 19:33] VITALS: BP 139/91; PULSE 81; RESP 18; O2SAT 98
[2024-09-12 19:39] LABS: Anion Gap 5 (5-15); BUN 19 mg/dL (7-18); BUN/Creat Ratio 14.1 RATIO (10-20); Calcium,Total 9.4 mg/dL (8.5-10.1); Chloride 106 mmol/L (98-107); Creatinine, Serum 1.35 mg/dL (0.70-1.30); EST Glomerular Filtration Rate 55 mL/min (>60); Est Glom Filt Rate - Afr Amer 66 mL/min (>60); Glucose 163 mg/dL (74-106); Potassium 4.1 mmol/L (3.5-5.1); Sodium Level 139 mmol/L (136-145)
[2024-09-12 19:50] LABS: Mucous, Urine 0 SEEN /hpf (<or=2+); Squamous Epithelial Cells - UA 0 SEEN /hpf (0-5)
[2024-09-12 19:54] LABS: Color, Urine Yellow (Yellow); Glucose, Dipstick Normal (Normal); Ketone-Dipstick Negative (Negative); Leukocyte Esterase-Dipstick 500 /ul (Negative); Nitrite-Dipstick Positive (Negative); Occult Blood-Urine 150 /ul (Negative); Protein-Dipstick 100 mg/dl (Negative); Urine Bilirubin Dipstick Negative (Negative); Urine Clarity Cloudy (Clear); Urine Urobilinogen Normal (Normal)
[2024-09-12 20:00] LABS: Bacteria 1+ /hpf (None Seen); Red Blood Cells-Urine 10-25 SEEN /hpf (0-5); White Blood Cells 50-100 SEEN /hpf (0-5)
--- OUTSIDE RECORDS SUMMARY | 2024-09-12 20:05 | XMS RPT_ITS | CCD ---
Author Organization [facility] Care Team Providers Care Dean Of Education Name Role Phone BLAS AUGUSTINE Attending Unavailable NAVIN ACKERMAN Primary Care Unavailable Navin Ackerman MD Primary Care Provider Marbella Zaidi PA-C Primary Care Provider Navin Ackerman MD Primary Care Provider Marbella Zaidi PA-C Primary Care Provider [phone] Marbella Zaidi PA-C Primary Care Provider [phone] Marbella Zaidi PA-C Primary Care Provider [phone] BROCK PORTILLO Admitting Unavailable BROCK PORTILLO Attending Unavailable LUIS ANGEL SHER Referring Unavailable NAVIN ACKERMAN Primary Care Unavailable MARII MONTANA Referring Unavailable Marbella ZAIDI Primary Care Unavailable QUIN OKEEFE Admitting Unavailable GIANLUCA ABARCA Attending Unavailable JOSHUA CHRIS Consulting Unavailable STEVE JO Attending Unavailable NAVIN ACKERMAN Referring Unavailable NAVIN ACKERMAN Primary Care Unavailable ANDRA HOUGH Referring Unavailable Marbella ZAIDI Primary Care Unavailable PROVIDER, UNKNOWN Admitting Unavailable PROVIDER, UNKNOWN Attending Unavailable NAVIN ACKERMAN Primary Care Unavailable Marbella ZAIDI Primary Care Unavailable ANDRE, KAITLIN Admitting Unavailable ANDRE, KAITLIN Attending Unavailable ALLYSON THERESA Consulting Unavailable REMY LEMUS Attending Unavailable GUDELIA SAMUEL Referring Unavailable Marbella ZAIDI Primary Care Unavailable Mrabella ZAIDI Referring Unavailable Marbella ZAIDI Primary Care Unavailable GUDELIA SAMUEL Referring Unavailable ZAIDI, M IGNACIO Primary Care Unavailable CONRY, REMY Attending Unavailable CONRY, REMY Referring Unavailable ZAIDI, M IGNACIO Primary Care Unavailable ZAIDI, M IGNACIO Primary Care Unavailable Zaidi BEVERLY, M Ignacio Primary Care Provider Haagen FOOD AIDE.DIRECTOR OF TESTING, Abena Unavailable Vicente Quintana MD Unavailable Chapito GAMBINO, Eugene Unavailable VICENTE QUINTANA Referring Unavail able VICENTE QUINTANA Attending Unavail able VICENTE QUINTANA Admitting Unavail able ZAIDI, M IGNACIO Primary Care Unavailable VICENTE QUINTANA Attending Unavail able ZAIDI, M IGNACIO Primary Care Unavailable VICENTE QUINTANA Referring Unavail able VICENTE QUINTANA Attending Unavail able ZAIDI, M IGNACIO Primary Care Unavailable ZAIDI, M IGNACIO Primary Care Unavailable GUDELIA SAMUEL Attending Unavailable Elroy CASTANON, Navin Ricks Primary Care Provider ZAIDI, M IGNACIO Primary Care Unavailable ZAIDI, M IGNACIO Referring Unavailable ZAIDI, M IGNACIO Primary Care Unavailable ZAIDI, M IGNACIO Primary Care Unavailable ZAIDI, M IGNACIO Primary Care Unavailable ZAIDI, M IGNACIO Attending Unavailable ZAIDI, M IGNACIO Primary Care Unavailable ZAIDI, M IGNACIO Attending Unavailable ZAIDI, M IGNACIO Primary Care Unavailable ZAIDI, M IGNACIO Attending Unavailable ZAIDI, M IGNACIO Primary Care Unavailable ZAIDI, M IGNACIO Primary Care Unavailable HAAGEN, ABENA Referring Unavailable ZAIDI, M IGNACIO Referring Unavailable ZAIDI, M IGNACIO Primary Care Unavailable ZAIDI, M IGNACIO Attending Unavailable ZAIDI, M IGNACIO Primary Care Unavailable HAAGEN, ABENA Referring Unavailable HAAGEN ABENA Attending Unavailable ZAIDI, M IGNACIO Primary Care Unavailable ZAIDI, M IGNACIO Primary Care Unavailable ZAIDI, M IGNACIO Referring Unavailable ZAIDI, M IGNACIO Primary Care Unavailable DANY GOMEZ Attending Unavailable NORMA CADET Attending Unavailable ZAIDI, M IGNACIO Primary Care Unavailable CONRY, REMY Referring Unavailable ZAIDI, M IGNACIO Primary Care Unavailable ZAIDI, M IGNACIO Primary Care Unavailable HAAGEN ABENA Attending Unavailable ZAIDI, M IGNACIO Primary Care Unavailable DENNIS MOORE Attending Unavailabl e ZAIDI, M IGNACIO Primary Care Unavailable SUPPAN, CORRIE A Attending Unavailable ZAIDI, Marbella IGNACIO Primary Care Unavailable CORRIE MARINELLI Referring Unavailable ZAIDI, M IGNACIO Referring Unavailable ZAIDI, M IGNACIO Primary Care Unavailable BHARATHI WIGGINS Attending Unavailable ZAIDI, Marbella IGNACIO Primary Care Unavailable ZAIDI, M IGNACIO Referring Unavailable ZAIDI, M IGNACIO Primary Care Unavailable BHARATHI WIGGINS Attending Unavailable ZAIDI, Marbella PIERRE Referring Unavailable ZAIDI, M IGNACIO Primary Care Unavailable GUDELIA SAMUEL Referring Unavailable ZAIDI, Marbella IGNACIO Primary Care Unavailable GUDELIA SAMUEL Referring Unavailable ZAIDI, Marbella IGNACIO Primary Care Unavailable DEMETRICE MARCIAL Referring Unavailable ZAIDI, Marbella GREELEY Primary Care Unavailable SASKIA SEARS Attending Unavailable Allergies Allergy Classification Reported Allergen(s) Allergy Type Date of Onset Reaction(s) Facility (20 sources) dilTIAZem; Translations: [DILTIAZEM HCL] Drug Allergy 03-04-20 11 Other: See Comments, Mental Status Change [facility] Work Phone: (20 sources) hydroCHLOROthiazide / Losartan; Translations: [LOSARTAN-HYDROCHLOROTH IAZIDE] Drug Allergy 03-04-20 11 Other: See Comments, Mental Status Change [facility] Work Phone: (20 sources) Metoprolol; Translations: [METOPROLOL TARTRATE] Drug Allergy 03-22-20 18 Other: See Comments, Intolerance [facility] Work Phone: (20 sources) valsartan; Translations: [VALSARTAN] Drug Allergy 09-29-20 10 GI Upset [facility] Work Phone: Medications Current Medications Medication Drug Class(es) Dates Sig (Normalized) Sig (Original) amLODIPine 10 mg oral tablet (20 sources) Dihydropyridine Calcium Channel Eric Start: 09-04-2022 End: 08-24-2025 take 1 tablet by mouth once daily amLODIPine (NORVASC) 10 mg tablet Indications: Essential hypertension Take 1 tablet by mouth once daily. 90 tablet 3 08/24/2024 08/24/2025 Active Start: 11-19-2020 End: 08-29-2022 take 1 tablet by mouth once daily amLODIPine (NORVASC) 10 mg tablet Indications: Essential hypertension Take 1 tablet by mouth once daily. 90 tablet 1 08/12/2021 03/02/2022 Discontinued Comment on above: Take 1 tablet by nichole th once daily. baclofen 10 mg oral tablet (4 sources) gamma-Aminobutyric Acid-ergic Agonist Start: 02-03-2022 End: 03-05-2022 take 1 tablet by mouth once daily as needed baclofen (LIORESAL) 10 mg tablet Take 1 tablet by mouth once daily as needed. 30 tablet 1 02/03/2022 03/05/2022 Active Comment on above: Take 1 tablet by nichole th once daily as needed. Blood Pressure Monitor (20 sources) Start: 03-23-2024 Blood Pressure Monitor Indications: Labile hypertension 1 Each once daily. 1 Each 03/23/2024 Suspended Start: 03-23-2024 Blood Pressure Monitor Indications: Labile hypertension 1 Each once daily. 1 Each 03/23/2024 Active Start: 03-23-2024 Blood Pressure Monitor Indications: Labile hypertension 1 Each once daily. 1 Each 0 03/23/2024 Active 24 hr buPROPion hydrochloride 300 mg extended release oral tablet (20 sources) Aminoketone Start: 08-17-2024 End: 08-24-2024 take 1 tablet by mouth once daily buPROPion XL (WELLBUTRIN XL) 300 mg 24 hr tablet Take 1 tablet by mouth once daily. 90 tablet 3 08/24/2024 Active Start: 07-29-2023 End: 08-17-2024 buPROPion XL (WELLBUTRIN XL) 300 mg 24 hr tablet [The details of the medication are not available because there are pending changes by a home health clinician.] 90 tablet 3 07/29/2023 08/17/2024 Discontinued Start: 07-16-2023 End: 07-29-2023 take 1 tablet by mouth once daily buPROPion XL (WELLBUTRIN XL) 300 mg 24 hr tablet Take 1 tablet by mouth once daily. 90 tablet 3 07/29/2023 Active End: 07-16-2023 take 1 tablet by mouth once daily buPROPion XL (WELLBUTRIN XL) 150 mg 24 hr tablet Take 150 mg by mouth once daily. 0 07/16/2023 Discontinued Comment on above: Take 150 mg by mouth once daily. Take 1 tablet by nichole th once daily. Catheter (BARD COUDE TIP CATHETER) 16 Fr misc (20 sources) Start: 01-04-2024 Catheter (BARD COUDE TIP CATHETER) 16 Fr misc Indications: 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 , Overflow incontinence of urine , Urinary retention ISC 2-3 x per day for urinary retention 100 Each 1 01/04/2024 Suspended Start: 01-04-2024 Catheter (BARD COUDE TIP CATHETER) 16 Fr misc Indications: 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 , Overflow incontinence of urine , Urinary retention ISC 2-3 x per day for urinary retention 100 Each 1 01/04/2024 Active Comment on above: ISC 2-3 x per day fo r urinary retention cephalexin 500 mg oral capsule (20 sources) Cephalosporin Antibacterial Start: End: take 1 capsule by mouth four times daily cephALEXin (KEFLEX) 500 mg capsule Take 1 capsule by mouth four times daily for 7 days. 28 capsule 07/26/2024 08/02/2024 Active Start: 07-10-2024 End: 08-09-2024 take 1 capsule by mouth three times daily cephALEXin (KEFLEX) 500 mg capsule Take 1 capsule by mouth three times a day for 7 days. 21 capsule 07/14/2024 07/21/2024 Active Start: 02-09-2024 End: 02-09-2024 cephALEXin 500 mg cap(s) (KE FLEX) ciprofloxacin 500 mg oral tablet (19 sources) Quinolone Antimicrobial Start: 07-26-2024 End: 08-02-2024 take 1 tablet by mouth twice daily ciprofloxacin HCl (CIPRO) 500 mg tablet Take 1 tablet by mouth two times a day for 7 days. 14 tablet 07/26/2024 08/02/2024 Active Start: 07-14-2024 End: 07-21-2024 take 1 tablet by mouth twice daily ciprofloxacin HCl (CIPRO) 500 mg tablet Take 1 tablet by mouth two times a day for 7 days. 14 tablet 07/14/2024 07/21/2024 Active 0.4 ml enoxaparin sodium 100 mg/ml prefilled syringe (4 sources) Low Molecular Weight Heparin Start: 01-15-2023 End: 02-05-2023 inject 40 mg by subcutaneous injection every twenty-four hours enoxaparin (LOVENOX) 40 mg/0.4 mL Inject 0.4 mL subcutaneously q 24 HR for 21 days. 8.4 mL 0 01/15/2023 02/05/2023 Active Start: 01-10-2023 End: 01-31-2023 inject 0.4 mL by subcutaneous injection once daily enoxaparin (LOVENOX) 40 mg/0.4 mL Inject 0.4 mL subcutaneously once daily for 21 days. 8.4 mL 0 01/10/2023 01/31/2023 Active Comment on above: Inject 0.4 mL subcut aneously once daily for 21 days. Inject 0.4 mL subcut aneously q 24 HR for 21 days. ferrous sulfate 324 mg delayed release oral tablet (20 sources) Start: 3 End: 4 take 1 tablet by mouth twice daily at mealtime ferrous sulfate EC 324 mg (65 mg iron) TbEC Take 1 tablet by mouth two times a day with meals. 180 tablet 1 08/24/2024 Active Comment on above: Take 1 tablet by nichole twice daily with meals. Take 1 tablet by nichole two times a day with meals. gabapentin 300 mg oral capsule (20 sources) Anti-epileptic Agent Start: 2 End: 5 take 2 capsules by mouth three times daily gabapentin (NEURONTIN) 300 mg capsule Take 2 capsules by mouth three times a day. 90 capsule 3 08/24/2024 08/24/2025 Active Start: 09-11-2021 End: 12-18-2021 take 1 capsule by mouth three times daily gabapentin (NEURONTIN) 300 mg capsule Take 1 capsule by mouth three times daily for 90 days. 270 capsule 09/11/2021 12/18/2021 Discontinued Comment on above: Take 2 capsules by m outh three times daily for 30 days. Take 1 capsule three times daily for two weeks then increase to 2 capsules three times daily. Take 2 capsules by m outh three times daily for 90 days. Take 2 capsules by m outh three times a day for 90 days. iv contrast (will be provided with radiology test) (1 source) Start: 11-05-2022 End: 11-06-2022 iv contrast (will be provided with radiology test) MRI Pituitary Inject, intravenously, once for 1 dose. No IV access, insert saline lock prior to the beginning of sedation, infusion, injection of imaging exam. Discontinue saline lock post exam. If Pt. has a central line or IVAD, may access for administration according to line specific nursing protocol. Once exam is complete flush line and de-access according to line specific nursing protocol in the MR contrast administration guidelines link. 1 Each 0 11/05/2022 11/06/2022 Active Comment on above: MRI Pituitary Inject , intravenously, once for 1 dose. No IV access, insert saline lock prior to the beginning of sedation, infusion, injection of imaging exam. Discontinue saline lock post exam. If Pt. has a central line or IVAD, may access for administration according to line specific nursing protocol. Once exam is complete flush line and de-access according to line specific nursing protocol in the MR contrast administration guidelines link. lidocaine hydrochloride 0.02 mg/mg topical gel (20 sources) Antiarrhythmic, Amide Local Anesthetic Start: 07-10-2024 End: 08-09-2024 lidocaine urojet 2 % 6 mL topical gel (GLYDO) Start: 02-09-2024 End: 02-09-2024 lidocaine urojet 2 % 6 mL to pical gel (GLYDO) meclizine hydrochloride 12.5 mg oral tablet (20 sources) Antiemetic Start: 12-08-2023 End: 08-16-2024 take 1 tablet by mouth three times daily meclizine (ANTIVERT) 12.5 mg tab Take 1 tablet by mouth three times a day. 90 tablet 08/16/2024 Active Comment on above: Take 1 tablet by nichole three times a day. melatonin 5 mg oral capsule (20 sources) Start: 07-05-2023 End: 03-13-2024 take 1 capsule by mouth once daily at bedtime Melatonin 5 mg cap Indications: Sleeping difficulty Take 1 capsule by mouth daily at bedtime. 90 capsule 3 03/13/2024 Active Comment on above: Take by mouth daily at bedtime. Take [address] [facility] daily at bedtime. menthol/camphor (BIOFREEZE TOPICAL) (20 sources) menthol/camphor (BIOFREEZE TOPICAL) Apply to affected area three times daily. Apply to posterior hand and right scapula for pain and order to apply every four hours as needed for pain not to exceed more than four total applications per day. Suspended menthol/camphor (BIOFREEZE TOPICAL) Apply to affected area three times daily. Apply to posterior hand and right scapula for pain and order to apply every four hours as needed for pain not to exceed more than four total applications per day. Active menthol/camphor (BIOFREEZE TOPICAL) Apply to affected area three times daily. Apply to posterior hand and right scapula for pain and order to apply every four hours as needed for pain not to exceed more than four total applications per day. 0 Active Comment on above: Apply to affected ar ea three times daily. Apply to posterior hand and right scapula for pain and order to apply every four hours as needed for pain not to exceed more than four total applications per day. mupirocin 0.02 mg/mg topical ointment (5 sources) RNA Synthetase Inhibitor Antibacterial Start: End: mupirocin (BACTROBAN) 2 % ointment Apply 1/2 ointment with a cotton swab in each nostril 2x daily for five days preop 22 g 0 03/15/2022 03/19/2022 Active Comment on above: Apply 1/2 ointment with a cotton swab in each nostril 2x daily for five days preop nitrofurantoin, macrocrystals 25 mg / nitrofurantoin, monohydrate 75 mg oral capsule (17 sources) Nitrofuran Antibacterial Start: End: take 1 capsule by mouth twice daily at mealtime nitrofurantoin monohydrate and macrocrystal (MACROBID) 100 mg capsule Indications: Acute cystitis without hematuria Take 1 capsule by mouth two times a day with meals for 7 days. 14 capsule 0 12/29/2023 01/05/2024 Active Start: 08-03-2023 End: 08-10-2023 take 1 capsule by mouth twice daily nitrofurantoin monohydrate and macrocrystal (MACROBID) 100 mg capsule Indications: Gross hematuria Take 1 capsule by mouth twice daily for 7 days. 14 capsule 0 08/03/2023 08/10/2023 Active Start: 06-29-2023 End: 07-06-2023 take 1 capsule by mouth twice daily at mealtime nitrofurantoin monohydrate and macrocrystal (MACROBID) 100 mg capsule Take 1 capsule by mouth twice daily with meals for 7 days. 14 capsule 0 06/29/2023 07/06/2023 Comment on above: Take 1 capsule by [facility] twice daily with meals for 7 days. Take 1 capsule by [facility] twice daily for 7 days. Take 1 capsule by [facility] two times a day with meals for 7 days. polyethylene glycol 3350 12738 mg powder for oral solution (20 sources) Osmotic Laxative Start: 11-16-20 End: 01-23-20 23 polyethylene glycol 3350 (MIRALAX, GLYCOLAX) 17 gram packet Take 1 Packet by mouth once daily for 7 doses. Dissolve dose in 4 - 8 ounces of liquid and take as directed. 7 Packet 0 01/15/2023 01/22/2023 Active Comment on above: Take 1 Packet by [facility] once daily. Dissolve dose in 4 - 8 ounces of liquid and take as directed. [facility] for 7 doses. Dissolve dose in 4 - 8 ounces of liquid and take as directed. Take 17 g by mouth o nce daily. Dissolve dose in 4 - 8 ounces of liquid and take as directed. microencapsulated potassium chloride 20 meq extended release oral tablet (20 sources) Start: 03-07-20 End: 02-21-20 take 1 tablet by mouth once daily potassium chloride ER (KLOR-CON) 20 mEq tablet Indications: Primary hypertension Take 1 tablet by mouth once daily. 90 tablet 1 08/24/2024 02/20/2025 Active sennosides, correction 8.6 mg oral tablet (20 sources) Start: 01-14-20 take 1 tablet by mouth every twelve hours as needed senna (SENOKOT) 8.6 mg tab Take 1 tablet by mouth twice daily as needed for constipation. 01/14/2023 Active Start: 11-16-2022 End: 01-15-2023 take 1 capsule by mouth once daily Sennosides (SENNA) 8.6 mg cap Take 1 capsule by mouth once daily. 30 capsule 1 11/16/2022 01/15/2023 Active Comment on above: Take 1 capsule by [facility] once daily. Take 1 tablet by [facility] twice daily as needed for constipation. sodium chloride 0.154 meq/ml irrigation solution (20 sources) Start: NaCl 0.9% irrigation solution sulfamethoxazole 800 mg / trimethoprim 160 mg oral tablet (1 source) Dihydrofolate Reductase Inhibitor Antibacterial, Sulfonamide Antimicrobial Start: 023 End: sulfamethoxazole-tr imethoprim (BACTRIM DS) 800-160 mg per tablet Take by mouth twice daily. 0 05/03/2023 05/08/2023 Active Comment on above: Take by mouth twice daily. tamsulosin hydrochloride 0.4 mg oral capsule (20 sources) alpha-Adrenergic Eric Start: 023 End: take 1 capsule by mouth once daily at bedtime tamsulosin (FLOMAX) 0.4 mg Indications: 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 , Overflow incontinence of urine Take 1 capsule by mouth daily at bedtime. 90 capsule 3 08/24/2024 Active Start: 11-19-2022 take 1 capsule by mo ut once daily at bedtime tamsulosin (FLOMAX) 0.4 mg Take 1 capsule by mouth daily at bedtime. 30 capsule 5 11/19/2022 Active Start: 05-12-2022 End: 11-13-2022 take 1 capsule by mouth once daily at bedtime tamsulosin (FLOMAX) 0.4 mg Take 1 capsule by mouth daily at bedtime. 30 capsule 5 05/12/2022 11/13/2022 Discontinued Comment on above: Take 1 capsule by mo ut daily at bedtime. 5000 mg testosterone 0.01 mg/mg topical gel (20 sources) Androgen Start: 3 End: 4 testosterone (ANDROGEL) 50 mg / 5 g (1%) Indications: Hypogonadism in male Apply 1 Packet as directed once daily for 90 days. 150 g 2 02/03/2024 05/03/2024 Active Comment on above: Apply 1 Packet as di rected once daily for 90 days. traZODone hydrochloride 100 mg oral tablet (20 sources) Serotonin Reuptake Inhibitor Start: 4 End: 5 take 1 tablet by mouth once daily at bedtime traZODone (DESYREL) 100 mg tablet Indications: Sleeping difficulty Take 1 tablet by mouth daily at bedtime. 90 tablet 3 08/24/2024 08/24/2025 Active Start: 07-23-2023 End: 07-28-2024 take 1 tablet by mouth once daily at bedtime traZODone (DESYREL) 50 mg tablet Take 1 tablet by mouth daily at bedtime. 90 tablet 3 07/29/2023 03/13/2024 Discontinued (Discontinued by Patient) Start: 07-23-2023 End: 07-29-2023 take 1 tablet by mouth once daily at bedtime traZODone (DESYREL) 150 mg tablet Indications: Sleeping difficulty Take 1 tablet by mouth daily at bedtime. 15 tablet 07/23/2023 07/29/2023 Discontinued Start: 11-19-2020 End: 07-21-2023 take 1 tablet by mouth once daily at bedtime traZODone (DESYREL) 150 mg tablet Indications: Sleeping difficulty Take 1 tablet by mouth daily at bedtime. 90 tablet 1 08/12/2021 03/02/2022 Discontinued Comment on above: Take 1 tablet by nichole daily at bedtime. Completed/Discontinued Medications Medication Drug Class(es) Dates Sig (Normalized) Sig (Original) acetaminophen 325 mg oral tablet (20 sources) Start: 11-13-2022 End: 07-10-2024 take 2 tablets by mouth every six hours as needed acetaminophen (TYLENOL) 325 mg tablet Take 2 tablets by mouth every 6 hours as needed (mild pain or fever >100). 11/13/2022 07/10/2024 Discontinued Comment on above: Take [address] [facility] every 6 hours as needed (mild pain or fever >100). acetaminophen 325 mg / oxyCODONE hydrochloride 5 mg oral tablet (13 sources) Opioid Agonist Start: 11-02-2022 End: 11-09-2022 take 1 tablet by mouth every eight hours as needed for pain oxyCODONE-acetamino phen (PERCOCET) 5-325 mg tablet Indications: Closed fracture of multiple ribs of left side with routine healing, subsequent encounter Take 1 tablet by mouth every 8 hours as needed for pain for up to 7 days. 21 tablet 11/02/2022 11/09/2022 Start: 04-29-2022 End: 05-06-2022 take 1 tablet by mouth every eight hours as needed for pain oxyCODONE-acetaminophen (PERCOCET) 5-325 mg tablet Indications: S/P laminectomy Take 1 tablet by mouth every 8 hours as needed for pain for up to 7 days. 21 tablet 0 04/29/2022 05/06/2022 Active Start: 04-14-2022 End: 04-21-2022 take 1 tablet by mouth every eight hours as needed for pain oxyCODONE-acetaminophen (PERCOCET) 5-325 mg tablet Indications: S/P laminectomy Take 1 tablet by mouth every 8 hours as needed for pain for up to 7 days. 21 tablet 0 04/14/2022 04/21/2022 Active Start: 03-27-2022 End: 04-03-2022 take 1 tablet by mouth every eight hours as needed for pain oxyCODONE-acetaminophen (PERCOCET) 5-325 mg tablet Indications: S/P laminectomy Take 1 tablet by mouth every 8 hours as needed for pain for up to 7 days. 21 tablet 0 03/27/2022 04/03/2022 Suspended Start: 03-22-2022 End: 03-29-2022 take 1 tablet by mouth every six hours as needed for pain oxyCODONE-acetaminophen (PERCOCET) 5-325 mg tablet Indications: S/P laminectomy Take 1 tablet by mouth every 6 hours as needed for pain for up to 7 days. 28 tablet 0 03/22/2022 03/27/2022 Discontinued Comment on above: Take 1 tablet by nichole th every 6 hours as needed for pain for up to 7 days. Take 1 tablet by nichole th every 8 hours as needed for pain for up to 7 days. amoxicillin 875 mg / clavulanate 125 mg oral tablet (6 sources) Penicillin-class Antibacterial Start: 02-19-2023 take 1 tablet by mouth twice daily amoxicillin-cla vulanic acid (AUGMENTIN) 875-125 mg per tablet Take 1 tablet by mouth twice daily. 14 tablet 0 02/19/2023 Active Start: 02-18-2023 take 1 tablet by nichole th twice daily amoxicillin-clavulanic acid (AUGMENTIN) 875-125 mg per tablet Take 1 tablet by mouth twice daily. 14 tablet 0 02/18/2023 Active Comment on above: Take 1 tablet by nichole th twice daily. docusate sodium 100 mg oral capsule (20 sources) Start: 2 End: 2 take 1 capsule by mouth twice daily docusate sodium (COLACE) 100 mg capsule Take 1 capsule by mouth twice daily. 20 capsule 03/22/2022 11/13/2022 Discontinued Comment on above: Take [address] [facility] twice daily. Take [address] [facility] twice daily as needed. lisinopril 20 mg oral tablet (20 sources) Angiotensin Converting Enzyme Inhibitor Start: 2 End: 4 take 1 tablet by mouth once daily lisinopril (ZESTRIL, PRINIVIL) 20 mg tablet Take 1 tablet by mouth once daily. 90 tablet 1 08/03/2022 07/29/2023 Discontinued Start: 12-13-2020 End: 08-12-2021 take 1 tablet by mouth once daily lisinopril (ZESTRIL, PRINIVIL) 20 mg tablet Take 1 tablet by mouth once daily. 90 tablet 1 05/28/2021 08/12/2021 Discontinued Comment on above: Take 1 tablet by nichole once daily. meloxicam 15 mg oral tablet (9 sources) Nonsteroidal Anti-inflammatory Drug End: 05-07-20 take 1 tablet by mouth once daily meloxicam (MOBIC) 15 mg tablet Take 15 mg by mouth once daily. 0 05/07/2023 Discontinued Comment on above: Take 15 mg by mouth once daily. methocarbamol 750 mg oral tablet (19 sources) Muscle Relaxant Start: 05-29-20 take 1 tablet by mouth every twelve hours as needed methocarbamol (ROBAXIN) 750 mg tablet Take 1 tablet by mouth twice daily as needed. 28 tablet 0 05/29/2022 Active Start: 04-29-2022 End: 05-29-2022 take 1 tablet by mouth every six hours as needed methocarbamol (ROBAXIN) 750 mg tablet Take 1 tablet by mouth four times daily as needed. 28 tablet 0 04/29/2022 05/29/2022 Discontinued Start: 04-14-2022 take 1 tablet by nichole th every six hours as needed methocarbamol (ROBAXIN) 750 mg tablet Take 1 tablet by mouth four times daily as needed. 28 tablet 0 04/14/2022 Active Start: 03-22-2022 End: 04-06-2022 take 1 tablet by mouth every six hours as needed methocarbamol (ROBAXIN) 750 mg tablet Take 1 tablet by mouth four times daily as needed. 28 tablet 0 04/06/2022 Active Comment on above: Take 1 tablet by nichole four times daily as needed. Take 1 tablet by nichole twice daily as needed. multivit,thx,calcium,i hortencia,mins (MULTIVITAMIN AND MINERAL ORAL) (10 sources) End: 03-22-2022 multivit,thx,calcium,iron, mins (MULTIVITAMIN AND MINERAL ORAL) Take by mouth. 03/22/2022 Discontinued multivit,thx,vipul cium,iron,mins (MULTIVITAMIN AND MINERAL ORAL) Take by mouth. 0 Suspended multivit,thx,vipul cium,iron,mins (MULTIVITAMIN AND MINERAL ORAL) Take by mouth. 0 Active Comment on above: Take by mouth. naproxen 500 mg oral tablet (20 sources) Nonsteroidal Anti-inflammatory Drug Start: 11-19-2020 End: 01-16-2024 naproxen (NAPROSYN) 500 mg tablet Indications: Primary localized osteoarthrosis of left shoulder region TAKE 1 TABLET TWICE DAILY NEEDED for pain and inflammation with food 180 tablet 1 08/12/2021 03/02/2022 Discontinued Start: 10-28-2020 take 1 tablet by nichole once daily naproxen (NAPROSYN) 500 mg tablet Take 500 mg by mouth once daily. 0 10/28/2020 Active Comment on above: TAKE 1 TABLET TWICE DAILY NEEDED for pain and inflammation with food Take 500 mg by mouth once daily. Take 500 mg by mouth twice daily with meals. Take 500 mg by mouth two times a day with meals. Last dose 12/27/23-- No hold orders from omega-3 fatty acids/vitamin e(FISH OIL 1,000 MG CAP) (20 sources) Start: 0 End: 2 take 1 capsule by mouth once daily omega-3 fatty acids/vitamin e(FISH OIL 1,000 MG CAP) Take 1 capsule by mouth once daily. 0 07/31/2010 11/13/2022 Discontinued Start: 07-31-2010 take [address] [facility] once daily omega-3 fatty acids/vitamin e(FISH OIL 1,000 MG CAP) Take 1 capsule by mouth once daily. 0 07/31/2010 Suspended Start: 07-31-2010 omega-3 fatty acids/vitamin e(FISH OIL 1,000 MG CAP) Take by mouth. 0 07/31/2010 Active Start: 07-31-2010 take 1 tablet by nichole th once daily omega-3 fatty acids/vitamin e(FISH OIL 1,000 MG CAP) Take one(1) tablet daily by mouth 0 07/31/2010 Suspended Start: 07-31-2010 take 1 tablet by nichole th once daily omega-3 fatty acids/vitamin e(FISH OIL 1,000 MG CAP) Take one(1) tablet daily by mouth 0 07/31/2010 Active Comment on above: Take one(1) tablet d aily by mouth Take by mouth. Take 1 capsule by mo uth once daily. ondansetron 4 mg oral tablet (20 sources) Serotonin-3 Receptor Antagonist End: 07-29-2023 ondansetron (ZOFRAN) 4 mg tablet Take by mouth every 8 hours as needed for nausea/vomiting. 07/29/2023 Discontinued Comment on above: Take by mouth every 8 hours as needed for nausea/vomiting. oxyCODONE hydrochloride 5 mg oral tablet (20 sources) Opioid Agonist Start: 03-11-2023 End: 06-28-2023 oxyCODONE IR (ROXICODONE) 5 mg immediate release tablet Take by mouth every 4 hours as needed for pain. 0 03/11/2023 06/28/2023 Discontinued Start: 02-13-2023 take 1 tablet by nichole th every six hours as needed oxyCODONE IR (ROXICODONE) 5 mg immediate release tablet Take 5 mg by mouth every 6 hours as needed. 0 02/13/2023 Active Start: 11-13-2022 take 1 tablet by nichole th every six hours as needed oxyCODONE IR (ROXICODONE) 5 mg immediate release tablet Take 1 tablet by mouth every 6 hours as needed (moderate pain). Hold for hypotension or sedation or RR less than 12 0 11/13/2022 Active Start: 04-04-2022 End: 04-09-2022 take 1 tablet by mouth every four hours as needed oxyCODONE IR (ROXICODONE) 5 mg immediate release tablet Indications: S/P laminectomy Take 1-2 tablets by mouth every 4 hours as needed for up to 5 days. 30 tablet 0 04/04/2022 04/09/2022 Comment on above: Take 1-2 tablets by mouth every 4 hours as needed for up to 5 days. Take 1 tablet by nichole th every 6 hours as needed (moderate pain). Hold for hypotension or sedation or RR less than 12 Take 5 mg by mouth e very 6 hours as needed. Take by mouth every 4 hours as needed for pain. traMADol hydrochloride 50 mg oral tablet (20 sources) Opioid Agonist Start: 04-10-2024 End: 04-17-2024 take 1 tablet by mouth every six hours as needed for pain Start: 07-23-2023 End: 08-22-2023 take 1 tablet by mouth every eight hours as needed for pain traMADol (ULTRAM) 50 mg tablet Indications: Pain syndrome, chronic , Post laminectomy syndrome , Polyarthropathy Take 1 tablet by mouth every 8 hours as needed for pain for up to 30 days. 90 tablet 07/23/2023 08/22/2023 Start: 06-28-2023 End: 07-21-2023 traMADol (ULTRAM) 50 mg tabl et Indications: Pain syndrome, chronic , Post laminectomy syndrome , Polyarthropathy Take 1 tablet by mouth every 6 hours as needed for pain. June 29, 2023 phoned and advised may take 1-2 tramadol q6h prn Marbella Zaidi PA-C 28 tablet 06/29/2023 07/21/2023 Discontinued Comment on above: Take 1 tablet by nichole th every 6 hours as needed for pain. June 29, 2023 phoned and advised may take 1-2 tramadol q6h prn Marbella Zaidi PA-C Take 1 tablet by nichole th every 6 hours as needed for pain. Take 1 tablet by nichole th every 8 hours as needed for pain for up to 30 days. Problems Active Problems Problem Classification Problem Date Documented Da te Episodic/Chronic Acute and unspecified renal failure (4 sources) Acute renal failure syndrome; Translations: [Acute kidney failure, unspecified] Onset: 01-31-2024 01-04-2024 Episodic Adjustment disorders (1 source) Adjustment disorder with depressed mood; Translations: [Adjustment disorder with depressed mood] 04-11-2024 Chronic Chronic kidney disease (20 sources) Chronic kidney disease stage 3B ; Translations: [Stage 3b chronic kidney disease (HCC)] Onset: 01-03-2024 01-03-2024 Chronic Chronic kidney disease (1 source) Chronic kidney disease; Translations: [Stage 3b chronic kidney disease (HCC)] Onset: 01-03-2024 Deficiency and other anemia (1 source) Anemia; Translations: [Anemia, unspecified] Episodic Delirium, dementia, and amnestic and other cognitive disorders (20 sources) Frailty; Translations: [Age-related physical debility] Onset: 01-31-2024 01-31-2024 Chronic E Codes: Fall (1 source) Fall; Translations: [Unspecified fall, subsequent encounter] Episodic Essential hypertension (20 sources) Hypertensive disorder; Translations: [Essential (primary) hypertension] Onset: 07-31-2010 07-31-2010 Chronic Genitourinary symptoms and ill-defined conditions (20 sources) Urinary incontinence; Translations: [Unspecified urinary incontinence] Onset: 11-11-2022 Resolved: 11-16-2022 Chronic Genitourinary symptoms and ill-defined conditions (20 sources) Retention of urine, unspecified; Translations: [Dysuria] Onset: 11-11-2022 Episodic Headache; including migraine (1 source) Headache; Translations: [Nonintractable headache, unspecified chronicity pattern, unspecified headache type] Episodic Headache; including migraine (1 source) Headache; including migraine; Translations: [Nonintractable headache, unspecified chronicity pattern, unspecified headache type] Onset: 12-08-2022 Hepatitis (20 sources) Chronic hepatitis C; Translations: [Chronic viral hepatitis C] Onset: 01-05-2019 Resolved: 06-29-2023 06-16-2019 Chronic Hyperplasia of prostate (20 sources) Benign prostatic hypertrophy with outflow obstruction; Translations: [Benign prostatic hyperplasia with lower urinary tract symptoms] Onset: 01-31-2024 Chronic Neoplasms of unspecified nature or uncertain behavior (20 sources) Monoclonal gammopathy of uncertain significance; Translations: [Monoclonal gammopathy] Onset: 03-15-2021 07-20-2021 Chronic Non-Hodgkin`s lymphoma (20 sources) Waldenstrom macroglobulinemia; Translations: [Waldenstrom macroglobulinemia] Onset: 02-03-2024 02-03-2024 Chronic Other aftercare (2 sources) Post-discharge follow-up; Translations: [Encounter for follow-up examination after completed treatment for conditions other than malignant neoplasm] Episodic Other aftercare (1 source) Other chcf (current) drug therapy; Translations: [Medication management] Onset: 12-14-2023 Episodic Other circulatory disease (1 source) Labile systemic arterial hypertension; Translations: [Other specified symptoms and signs involving the circulatory and respiratory systems] 03-23-2024 Episodic Other connective tissue disease (20 sources) History of repair of hip joint; Translations: [Presence of unspecified artificial hip joint] Onset: 08-07-2014 08-07-2014 Chronic Other connective tissue disease (20 sources) History of operative procedure on shoulder; Translations: [Presence of unspecified artificial shoulder joint] Onset: 02-21-2015 02-21-2015 Chronic Other connective tissue disease (4 sources) History of right shoulder arthroplasty; Translations: [Presence of right artificial shoulder joint] Chronic Other connective tissue disease (1 source) History of total hip arthroplasty; Translations: [Presence of right artificial hip joint] 06-28-2023 Chronic Other connective tissue disease (2 sources) Presence of unspecified artificial hip joint; Translations: [Dislocation of hip joint prosthesis, subsequent encounter] Onset: 10-20-2023 Chronic Other connective tissue disease (1 source) Presence of right artificial shoulder joint; Translations: [Status post replacement of right shoulder joint] Onset: 02-21-2015 Chronic Other connective tissue disease (1 source) Presence of right artificial hip joint; Translations: [Status post right hip replacement] Onset: 08-07-2014 Chronic Other connective tissue disease (1 source) Other symptoms and signs involving the musculoskeletal system; Translations: [Weakness of both lower extremities] Onset: 11-11-2022 Episodic Other diseases of kidney and ureters (8 sources) Hydronephrosis; Translations: [Unspecified hydronephrosis] 12-31-2023 Episodic Other diseases of kidney and ureters (2 sources) Other obstructive and reflux uropathy; Translations: [BPH with obstruction/lower urinary tract symptoms] Onset: 07-10-2024 Episodic Other endocrine disorders (20 sources) Male hypogonadism; Translations: [Testicular hypofunction] Onset: 03-11-2023 Chronic Other endocrine disorders (2 sources) Testicular hypofunction; Translations: [Hypogonadism in male] Onset: 03-11-2023 Chronic Other fractures (2 sources) Closed fracture of multiple ribs; Translations: [Multiple fractures of ribs, left side, subsequent encounter for fracture with routine healing] Episodic Other gastrointestinal disorders (1 source) Therapeutic opioid induced constipation; Translations: [Drug induced constipation] Episodic Other gastrointestinal disorders (1 source) Constipation, unspecified; Translations: [Constipation, unspecified constipation type] Onset: 11-11-2022 Episodic Other gastrointestinal disorders (1 source) Diarrhea, unspecified; Translations: [Diarrhea, unspecified type] Onset: 11-13-2022 Episodic Other male genital disorders (20 sources) Secondary erectile dysfunction; Translations: [Male erectile dysfunction, unspecified] Onset: 03-11-2023 Chronic Other nervous system disorders (20 sources) Neurogenic claudication; 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] Onset: 03-20-2022 03-20-2022 Chronic Other nervous system disorders (1 source) Other vascular myelopathies; Translations: [Neurogenic claudication (HCC)] Onset: 03-22-2022 Chronic Other nervous system disorders (1 source) Bilateral peripheral neuropathy of lower limbs; Translations: [Unspecified mononeuropathy of bilateral lower limbs] Chronic Other nervous system disorders (6 sources) Chronic pain syndrome; Translations: [Chronic pain syndrome] 06-29-2023 Chronic Other nervous system disorders (1 source) Spinal cord disease; Translations: [Disease of spinal cord, unspecified] 10-20-2023 Chronic Other nervous system disorders (4 sources) Disease of spinal cord, unspecified; Translations: [Cervical myelopathy (HCC)] Onset: 10-20-2023 Chronic Other nervous system disorders (1 source) Chronic pain syndrome; Translations: [Chronic pain syndrome] Onset: 07-10-2024 Chronic Other nervous system disorders (4 sources) Abnormal gait; Translations: [Unspecified abnormalities of gait and mobility] Episodic Other nervous system disorders (4 sources) Paresthesia of upper limb; Translations: [Anesthesia of skin] Episodic Other nervous system disorders (1 source) Ataxia; Translations: [Ataxia, unspecified] Episodic Other non-traumatic joint disorders (5 sources) Polyarthropathy; Translations: [Polyarthritis, unspecified] 06-29-2023 Chronic Other non-traumatic joint disorders (1 source) Polyarthritis, unspecified; Translations: [Polyarthropathy] Onset: 10-28-2023 Chronic Other non-traumatic joint disorders (4 sources) Pain in right knee; Translations: [Pain in joint, lower leg] Episodic Other non-traumatic joint disorders (4 sources) Hip pain; Translations: [Pain in unspecified hip] Episodic Other non-traumatic joint disorders (1 source) Pain in right hip joint; Translations: [Pain in right hip] Episodic Other non-traumatic joint disorders (1 source) Multiple joint pain; Translations: [Pain in unspecified joint] 09-30-2021 Episodic Other nutritional; endocrine; and metabolic disorders (20 sources) Obese class I; Translations: [Obesity, unspecified] Onset: 03-20-2022 03-22-2022 Chronic Residual codes; unclassified (2 sources) Other specified postprocedural states; Translations: [S/P laminectomy] Onset: 03-22-2022 Episodic Residual codes; unclassified (1 source) Left before being seen; Translations: [Procedure and treatment not carried out due to patient leaving prior to being seen by health care provider] 01-04-2024 Episodic Residual codes; unclassified (1 source) Failed encounter; Translations: [No-show for appointment] 03-07-2024 Episodic Respiratory failure; insufficiency; arrest (adult) (1 source) Respiratory failure; insufficiency; arrest (adult); Translations: [Acute renal failure superimposed on stage 3a chronic kidney disease, unspecified acute renal failure type (HCC)] Onset: 07-10-2024 Spondylosis; intervertebral disc disorders; other back problems (20 sources) Degeneration of lumbar intervertebral disc; Translations: [Other intervertebral disc degeneration, lumbar region] Onset: 12-23-2021 Chronic Unclassified (1 source) OPENED IN ERROR Unclassified (3 sources) Intractable low back pain; Translations: [Intractable low back pain] Onset: 11-12-2022 Unclassified (1 source) Post Op Onset: 04-16-2022 Past or Other Problems Problem Classification Problem Date Documented Da te Episodic/Chronic Abdominal pain (20 sources) Generalized abdominal pain; Translations: [Generalized abdominal pain] Onset: 11-12-2022 Resolved: 11-16-2022 11-12-2022 Episodic Anxiety disorders (20 sources) Anxiety; Translations: [Anxiety disorder, unspecified] Onset: 09-29-2010 Resolved: 03-22-2022 09-29-2010 Chronic Complication of device; implant or graft (20 sources) Dislocation of hip joint prosthesis; Translations: [Dislocation of unspecified internal joint prosthesis, subsequent encounter] Onset: 03-31-2023 Resolved: 04-05-2023 Episodic Complications of surgical procedures or medical care (20 sources) Periprosthetic fracture of hip; Translations: [Periprosthetic fracture around other internal prosthetic joint, initial encounter] Onset: 01-08-2023 01-08-2023 Episodic Conditions associated with dizziness or vertigo (20 sources) Vertigo; Translations: [Dizziness and giddiness] Onset: 06-09-2022 Episodic Deficiency and other anemia (1 source) Anemia, unspecified; Translations: [Anemia, unspecified type] Onset: 12-28-2023 Episodic Diabetes mellitus without complication (20 sources) Impaired fasting glycemia; Translations: [Impaired fasting glucose] Onset: 10-02-2010 Resolved: 03-22-2022 10-02-2010 Episodic Hepatitis (20 sources) Neuropathy due to infection; Translations: [Unspecified viral hepatitis C without hepatic coma] Onset: 04-12-2024 Episodic Immunizations and screening for infectious disease (20 sources) Patient encounter status; Translations: [Encounter for immunization] Onset: 01-04-2024 10-28-2023 Episodic Malaise and fatigue (2 sources) Muscle weakness; Translations: [Weakness] Onset: 03-13-2024 03-13-2024 Episodic Osteoarthritis (20 sources) Localized, primary osteoarthritis of the shoulder region; Translations: [Primary osteoarthritis, unspecified shoulder] Onset: 12-12-2014 Resolved: 03-22-2022 02-27-2016 Chronic Other circulatory disease (1 source) Orthostatic hypotension; Translations: [Orthostatic hypotension] Onset: 12-08-2023 Episodic Other connective tissue disease (20 sources) Neurogenic claudication; Translations: [Other symptoms and signs involving the nervous system] Onset: 03-20-2022 03-22-2022 Episodic Other diseases of kidney and ureters (2 sources) Unspecified hydronephrosis; Translations: [Hydronephrosis, unspecified hydronephrosis type] Onset: 01-03-2024 Episodic Other diseases of kidney and ureters (1 source) Disorder of kidney and ureter, unspecified; Translations: [Function kidney decreased] Onset: 12-28-2023 Episodic Other fractures (20 sources) Fracture of multiple ribs ; Translations: [Multiple fractures of ribs, unspecified side, initial encounter for closed fracture] Onset: 11-12-2022 11-12-2022 Episodic Other gastrointestinal disorders (20 sources) Diarrhea; Translations: [Diarrhea, unspecified] Onset: 07-31-2010 Resolved: 11-16-2022 11-12-2022 Episodic Other gastrointestinal disorders (20 sources) Chronic constipation; Translations: [Other constipation] Onset: 03-11-2023 03-11-2023 Episodic Other gastrointestinal disorders (20 sources) Smearing feces; Translations: [Fecal smearing] Onset: 03-11-2023 03-11-2023 Episodic Other injuries and conditions due to external causes (20 sources) At high risk for fall; Translations: [History of falling] Onset: 01-31-2024 01-31-2024 Episodic Other male genital disorders (20 sources) Atrophy of testis; Translations: [Atrophy of testis] Onset: 03-11-2023 Episodic Other nervous system disorders (20 sources) Paresthesia of foot ; Translations: [Anesthesia of skin] Onset: 07-20-2021 Resolved: 03-22-2022 11-18-2021 Episodic Other nervous system disorders (20 sources) Postoperative pain ; Translations: [Other acute postprocedural pain] Onset: 03-29-2022 03-29-2022 Episodic Other nervous system disorders (20 sources) Paresthesia of skin; Translations: [Disturbance of skin sensation] Onset: 03-11-2023 Episodic Other non-traumatic joint disorders (8 sources) Shoulder pain; Translations: [Pain in right shoulder] Onset: 09-04-2014 09-04-2014 Episodic Other non-traumatic joint disorders (20 sources) Pain in right shoulder; Translations: [Pain in joint, shoulder region] Onset: 09-04-2014 Resolved: 03-22-2022 03-22-2022 Episodic Other screening for suspected conditions (not mental disorders or infectious disease) (20 sources) FSH level abnormal; Translations: [Other specified abnormal findings of blood chemistry] Onset: 03-11-2023 Episodic Residual codes; unclassified (20 sources) Difficulty sleeping ; Translations: [Sleep disorder, unspecified] Onset: 09-29-2010 09-29-2010 Episodic Residual codes; unclassified (20 sources) H/O Spinal surgery; Translations: [Other specified postprocedural states] Onset: 03-20-2022 03-22-2022 Episodic Residual codes; unclassified (1 source) Procedure and treatment not carried out due to patient leaving prior to being seen by health care provider; Translations: [Patient left without being seen] Onset: 01-03-2024 Episodic Residual codes; unclassified (1 source) Sleep disorder, unspecified; Translations: [Sleeping difficulty] Onset: 03-22-2022 Episodic Screening and history of mental health and substance abuse codes (20 sources) Ex-smoker; Translations: [Personal history of nicotine dependence] Onset: 02-23-2022 02-23-2022 Episodic Spondylosis; intervertebral disc disorders; other back problems (20 sources) Chronic low back pain; Translations: [Chronic bilateral low back pain without sciatica] Onset: 12-18-2020 Resolved: 03-22-2022 12-18-2020 Episodic Urinary tract infections (4 sources) Acute cystitis; Translations: [Acute cystitis without hematuria] Onset: 12-31-2023 12-29-2023 Episodic Results Test Name Value Interpretation Reference Range [facility] CNOVon 08-22-[address] [facility] 08-17-[address] [facility]-09[facility]2024 [facility] 30on 08-01-2024 30 HNO ID: [id number] Author: MOLLY MARISCAL PTA Service: ? Author Type: Cafeteria Director Type: 30 Filed: 08/01/2024 15:49 Note Text: I sent todays BP reading to Abena Beckford per her request [facility] 08-01-2024 CNPN [facility] CNPNon 07-30-2024 CNPN [facility] CNPNon 07-28-2024 CNPN [facility] CNCOon 07-27-2024 CNCO Letter Text Normal [facility] Basic metabolic 2000 panelon 07-26-2024 Anion gap [Moles/Vol] 10 mmol/L Normal 8-15 [facility] Comment on above: Order Comment: Speci men Type: BLOOD SPECIMENOrdering Facility: [facility] Address: [address] [place] [address] Performed By: #### 2 4321-2 ####[facility]ATORYCLIA [id number] [place] [address] [place] Calcium [Mass/Vol] 8.2 mg/dL Low 8.5-10.2 [facility] Comment on above: Order Comment: Speci men Type: BLOOD SPECIMENOrdering Facility: [facility] Address: [address] [place] [address] Performed By: #### 2 4321-2 ####[facility] [place] [place] [facility]ATORYCLIA [id number] [place] [address] [place] Chloride [Moles/Vol] 102 mmol/L Normal 98-107 [facility] Comment on above: Order Comment: Speci men Type: BLOOD SPECIMENOrdering Facility: [facility] Address: [address] [place] [address] Performed By: #### 2 4321-2 ####[facility] [place] [place] [facility]ORYCL[facility] [id number] [place] [address] [place] CO2 [Moles/Vol] 23 mmol/L Normal 22-30 [facility] Comment on above: Order Comment: Speci men Type: BLOOD SPECIMENOrdering Facility: [facility] Address: [address] [place] [address] Performed By: #### 2 4321-2 ####[facility] [place] [place] [facility]ORYCL[facility] [id number] [place] [address] [place] Creatinine [Mass/Vol] 1.27 mg/dL High 0.73-1.22 [facility] Comment on above: Order Comment: Speci men Type: BLOOD SPECIMENOrdering Facility: [facility] Address: [address] [place] [address] Performed By: #### 2 4321-2 ####[facility] [place] [place] [facility]ORYCL[facility] [id number] [place] [address] [place] Creatinine and Glomerular filtration rate.predicted panel (S/P/Bld) 59 mL/min/1.73m??? Low >=60 [facility] Comment on above: Order Comment: Fernanda franks Type: BLOOD SPECIMENOrdering Facility: [facility] Address: [address] [place] [address] Result Comment: Kalani mated Glomerular Filtration Rate (eGFR) is calculated using the 2020 CKD-EPI creatinine equation. This equation utilizes serum creatinine, sex, and age as parameters. The creatinine assay has traceable calibration to isotope dilution-mass spectrometry. Refer to KDIGO guidelines for clinical interpretation. In patients with unstable renal function, e.g. those with acute kidney injury, the eGFR may not accurately reflect actual GFR. Performed By: #### 2 4321-2 ####[facility] [place] [place] [facility]ORYCL[facility] [id number] [place] [address] [place] Glucose [Mass/Vol] 86 mg/dL Normal 74-99 [facility] Comment on above: Order Comment: Fernanda franks Type: BLOOD SPECIMENOrdering Facility: [facility] Address: [address] [place] [address] Result Comment: The [place] Diabetes Association (ADA) provides guidance for cutoff values for fasting glucose and random glucose. The ADA defines fasting as no caloric intake for at least 8 hours. Fasting plasma glucose results between 100 to 125 mg/dL indicate increased risk for diabetes (prediabetes). Fasting plasma glucose results greater than or equal to 126 mg/dL meet the criteria for diagnosis of diabetes. In the absence of unequivocal hyperglycemia, results should be confirmed by repeat testing. In a patient with classic symptoms of hyperglycemia or hyperglycemic crisis, random plasma glucose results greater than or equal to 200 mg/dL meet the criteria for diagnosis of diabetes. Reference: Standards of Medical Care in Diabetes 2016, [place] Diabetes Association. Diabetes Care. 2016.39(Suppl 1). Performed By: #### 2 4321-2 ####[facility] [place] [place] [facility]ORYCL[facility] [id number] [place] [id number] [place] Potassium [Moles/Vol] 3.9 mmol/L Normal 3.7-5.1 [facility] Comment on above: Order Comment: Speci men Type: BLOOD SPECIMENOrdering Facility: [facility] Address: [address] [place] [address] Performed By: #### 2 4321-2 ####[facility] [place] [facility]ORYCL[facility] [id number] [address] STATES OF [facility] Sodium [Moles/Vol] 135 mmol/L Low 136-144 [facility] Comment on above: Order Comment: Speci men Type: BLOOD SPECIMENOrdering Facility: [facility] Address: [address] [place] [address] Performed By: #### 2 4321-2 ####[facility] [place] [facility]ORYCL[facility] [id number] [address] [place] Urea nitrogen [Mass/Vol] 14 mg/dL Normal 9-24 [facility] Comment on above: Order Comment: Speci men Type: BLOOD SPECIMENOrdering Facility: [facility] Address: [address] [place] [address] Performed By: #### 2 4321-2 ####[facility] [facility]ORYCL[facility] [id number] [address] OF [facility] CBC panel Auto (Bld)on 07-26 Erythrocyte distribution width (RBC) [Ratio] 15.1 % High 11.5-15.0 [facility] Comment on above: Order Comment: Speci men Type: BLOOD SPECIMENOrdering Facility: [facility] Address: [address] [place] [address] Performed By: #### 5 8410-2 ####[facility] [place] [facility]ORYCL[facility] [id number] [address] Hematocrit (Bld) [Volume fraction] 35.5 % Low 39.0-51.0 [facility] Comment on above: Order Comment: Speci men Type: BLOOD SPECIMENOrdering Facility: [facility] Address: [address] [place] [address] Performed By: #### 5 8410-2 ####[facility] [place] [facility]ORYCL[facility] [id number] [address] OF [facility] Hemoglobin (Bld) [Mass/Vol] 11.7 g/dL Low 13.0-17.0 [facility] Comment on above: Order Comment: Speci men Type: BLOOD SPECIMENOrdering Facility: [facility] Address: [address] [place] [address] Performed By: #### 5 8410-2 ####[facility] [place] [facility]ORYCL[facility] [id number] [address] MCH (RBC) [Entitic mass] 30.7 pg Normal 26.0-34.0 [facility] Comment on above: Order Comment: Speci men Type: BLOOD SPECIMENOrdering Facility: [facility] Address: [address] [place] [address] Performed By: #### 5 8410-2 ####[facility] [place] [facility]ORYCL[facility] [id number] [address] MCHC (RBC) [Mass/Vol] 33.0 g/dL Normal 30.5-36.0 [facility] Comment on above: Order Comment: Speci men Type: BLOOD SPECIMENOrdering Facility: [facility] Address: [address] [place] [address] Performed By: #### 5 8410-2 ####[facility] [place] [facility]ORYCL[facility] [id number] [address] MCV (RBC) [Entitic vol] 93.2 fL Normal 80.0-100.0 [facility] Comment on above: Order Comment: Speci men Type: BLOOD SPECIMENOrdering Facility: [facility] Address: [address] [place] [address] Performed By: #### 5 8410-2 ####[facility] [place] [facility]ORYCL[facility] [id number] [address] Nucleated RBC (Bld) [#/Vol] 10*3/uL Normal <0.01 [facility] Comment on above: Order Comment: Speci men Type: BLOOD SPECIMENOrdering Facility: [facility] Address: [address] [place] [address] Performed By: #### 5 8410-2 ####[facility] [place] [place] [facility]ORYCL[facility] [id number] [address] [place] Platelet mean volume (Bld) [Entitic vol] 9.1 fL Normal 9.0-12.7 [facility] Comment on above: Order Comment: Speci men Type: BLOOD SPECIMENOrdering Facility: [facility] Address: [address] [place] [address] Performed By: #### 5 8410-2 ####[facility] [place] [facility]ATORYCLIA [id number] [address] [place] Platelets (Bld) [#/Vol] 258 10*3/uL Normal 150-400 [facility] Comment on above: Order Comment: Speci men Type: BLOOD SPECIMENOrdering Facility: [facility] Address: [address] [place] [address] Performed By: #### 5 8410-2 ####[facility] [place] [place] [facility]ATORYCLIA [id number] [place] [address] [place] RBC (Bld) [#/Vol] 3.81 10*6/uL Low 4.20-6.00 [facility] Comment on above: Order Comment: Speci men Type: BLOOD SPECIMENOrdering Facility: [facility] Address: [address] [place] [address] Performed By: #### 5 8410-2 ####[facility] [place] [facility]ORYCL[facility] [id number] [address] [place] WBC (Bld) [#/Vol] 8.88 10*3/uL Normal 3.70-11.00 [facility] Comment on above: Order Comment: Speci men Type: BLOOD SPECIMENOrdering Facility: [facility] Address: [address] [place] [address] Performed By: #### 5 8410-2 ####[facility] [place] [place] [facility]ORYCL[facility] [id number] [address] OF [place] CNDSon 07-26-2024 CNDS HNO ID: [id number] Author: VICENTE QUINTANA MD Service: Urology Author Type: Physician Type: Discharge Summary Filed: 07/27/2024 10:56 Note Text: DISCHARGE NOTE (Patient Admitted Less than 48 Hours) SERVICE DATE: 07/26/2024 SERVICE TIME: 1500 ADMISSION DATE: 07/25/2024 DISCHARGE DISPOSITION: Home with Self Care DIET: Regular ACTIVITY AFTER DISCHARGE: Resume pre-hospital activity FOLLOW UP CARE REQUIRED: follow-up with urology office DISCHARGE MEDICATIONS: Medication List START taking these medications cephALEXin 500 mg capsule Commonly known as: KEFLEX Take 1 capsule by mouth four times daily for 7 days. ciprofloxacin HCl 500 mg tablet Commonly known as: CIPRO Take 1 tablet by mouth two times a day for 7 days. CHANGE how you take these medications amLODIPine 10 mg tablet Commonly known as: NORVASC Take 1 tablet by mouth once daily. What changed: when to take this buPROPion XL 300 mg 24 hr tablet Commonly known as: WELLBUTRIN XL Take 1 tablet by mouth once daily. What changed: when to take this CONTINUE taking these medications [facility] drug: Catheter ISC 2-3 x per day for urinary retention BIOFREEZE TOPICAL Blood Pressure Monitor 1 Each once daily. ferrous sulfate EC 324 mg (65 mg iron) Tbec Take 1 tablet by mouth two times a day with meals. gabapentin 300 mg capsule Commonly known as: NEURONTIN Take 2 capsules by mouth three times a day for 90 days. meclizine 12.5 mg Tab Commonly known as: ANTIVERT Take 1 tablet by mouth three times a day. Melatonin 5 mg Cap Take 1 capsule by mouth daily at bedtime. polyethylene glycol 3350 17 gram packet potassium chloride ER 20 mEq tablet Commonly known as: KLOR-CON Take 1 tablet by mouth once daily. senna 8.6 mg Tab Commonly known as: SENOKOT Take 1 tablet by mouth twice daily as needed for constipation. tamsulosin 0.4 mg Commonly known as: FLOMAX Take 1 capsule by mouth daily at bedtime. traZODone 100 mg tablet Commonly known as: DESYREL Take 1 tablet by mouth daily at bedtime. Where to Get Your Medications These medications were sent to [facility] [address] [place], [place] [address] - [address] - [phone] [address] [place] [place] [address] cephALEXin 500 mg capsule ciprofloxacin HCl 500 mg tablet FINAL DIAGNOSIS: BPH SIGNATURE: Malika Bedolla DO PATIENT NAME: Miroslava Peralta DATE: July 27, 2024 TIME: 10:46 AM Normal [facility] CNPN Telephone (AKPRAD) GRACIAMIROSLAVA Wagner ([id number]) 1950 M [facility]* Date Time Provider Department 07/26/24 MALIKA BEDOLLA During your visit today, we recorded the following information about you: Allergies As of Date: 07/26/2024 Noted Allergy Reaction CARDIZEM (DILTIAZEM HCL) 03/04/2011 1 - Mental Status Change Comments: panic attack DIOVAN (VALSARTAN) 09/29/2010 8 - GI Upset Comments: Caused nausea HYZAAR (LOSARTAN-HYDROCHLOROTHIAZ* 03/04/2011 1 - Mental Status Change Comments: Mood change LOPRESSOR (METOPROLOL TARTRATE) 03/22/2018 5 - Intolerance Comments: no energy, wiped pt out Date Reviewed: 07/25/2024 Reviewed by: Umu Galicia, IMMANUEL - Fully Assessed Prescriptions as of 08/08/2024 - meclizine (ANTIVERT) 12.5 mg tab Take 1 tablet by mouth three times a day. - tamsulosin (FLOMAX) 0.4 mg Take 1 capsule by mouth daily at bedtime. - gabapentin (NEURONTIN) 300 mg capsule Take 2 capsules by mouth three times a day for 90 days. - Blood Pressure Monitor 1 Each once daily. - potassium chloride ER (KLOR-CON) 20 mEq tablet Take 1 tablet by mouth once daily. - Melatonin 5 mg cap Take 1 capsule by mouth daily at bedtime. - traZODone (DESYREL) 100 mg tablet Take 1 tablet by mouth daily at bedtime. - ferrous sulfate EC 324 mg (65 mg iron) TbEC Take 1 tablet by mouth two times a day with meals. - Catheter (BARD COUDE TIP CATHETER) 16 Fr misc ISC 2-3 x per day for urinary retention - amLODIPine (NORVASC) 10 mg tablet Take 1 tablet by mouth once daily. - buPROPion XL (WELLBUTRIN XL) 300 mg 24 hr tablet Take 1 tablet by mouth once daily. - polyethylene glycol 3350 17 gram packet Take 17 g by mouth once daily. Dissolve dose in 4 - 8 ounces of liquid and take as directed. - menthol/camphor (BIOFREEZE TOPICAL) Apply to affected area three times daily. Apply to posterior hand and right scapula for pain and order to apply every four hours as needed for pain not to exceed more than four total applications per day. - senna (SENOKOT) 8.6 mg tab Take 1 tablet by mouth twice daily as needed for constipation. Facility-Administered Medications as of 08/08/2024 - lidocaine urojet 2 % 6 mL topical gel (GLYDO) - NaCl 0.9% irrigation solution Meds Comments as of 07/28/2024: 07/28: SEVERE interactions between: meclizine and potassium chloride ER, ciprofloxacin HCl and traZODone, and ciprofloxacin HCl and ferrous sulfate EC instruct pt to Hold trazodone when starts cipro Problem List As Of Date 07/26/2024 Noted Resolved Diarrhea [R19.7] 07/31/2010 11/16/2022 Hypertension [I10] 07/31/2010 Sleeping difficulty [G47.9] 09/29/2010 Anxiety [F41.9] 09/29/2010 03/22/2022 Impaired fasting blood sugar [R73.01] 10/02/2010 03/22/2022 S/P hip replacement [Z96.649] 08/07/2014 Shoulder pain, right [M25.511] 09/04/2014 03/22/2022 Primary localized osteoarthrosis of shoulder re*12/12/2014 03/22/2022 S/P shoulder joint replacement [Z96.619] 02/21/2015 Chronic hepatitis C without hepatic coma (HCC) *01/05/2019 06/29/2023 Chronic bilateral low back pain without sciatic*12/18/2020 03/22/2022 MGUS (monoclonal gammopathy of unknown signific*03/15/2021 Numbness and tingling of foot [R20.0, R20.2] 07/20/2021 03/22/2022 Former smoker [Z87.891] 02/23/2022 Neurogenic claudication (HCC) [R29.818] 03/20/2022 Obesity, Class I, BMI 30-34.9 [E66.9] 03/20/2022 S/P laminectomy [Z98.890] 03/20/2022 Post-op pain [G89.18] 03/29/2022 Chronic vertigo [R42] 06/09/2022 Intractable low back pain [M54.59] 11/12/2022 Generalized abdominal pain [R10.84] 11/12/2022 11/16/2022 Rib fractures [S22.49XA] 11/12/2022 Incontinence of urine [R32] 11/14/2022 11/16/2022 Periprosthetic fracture around internal prosthe*01/08/2023 Chronic constipation [K59.09] 03/11/2023 Fecal smearing [R15.1] 03/11/2023 Paresthesia of saddle area: Cauda equina ruled *03/11/2023 DDD (degenerative disc disease), lumbar [M51.36]03/11/2023 Hypogonadism in male [E29.1] 03/11/2023 High serum follicle stimulating hormone (FSH) [*03/11/2023 Testicular atrophy [N50.0] 03/11/2023 ED (erectile dysfunction) of organic origin [N5*03/11/2023 Mechanical complication of prosthetic hip impla*03/31/2023 04/05/2023 Stage 3b chronic kidney disease (HCC) [N18.32] 01/03/2024 Encounter for support and coordination of trans*01/04/2024 At high risk for falls [Z91.81] 01/31/2024 Frailty [R54] 01/31/2024 Benign prostatic hyperplasia with incomplete bl*01/31/2024 Overflow incontinence of urine [N39.490] 01/31/2024 Waldenstrom macroglobulinemia (HCC) [C88.0] 02/03/2024 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 and p.m. appointment Wednesday or Wednesday for catheter removal and voiding trial Marilee Ratliff 07/26/2024 7:49 AM Signed Pt added to schedule for Wednesday. Will call when pt home from the hospital to confirm. Adrianna Hernandez 07/28/2024 3:11 PM Signed Called all numbers on file- LVM's for all. Adrianna Saavedra Allergies As of Date: 07/26/2024 Noted Allergy Reaction CARDIZEM (DILTIAZEM HCL) 03/04/2011 1 - Mental Status Change Comments: panic attack DIOVAN (VALSARTAN) 09/29/2010 8 - GI Upset Comments: Caused nausea HYZAAR (LOSARTAN-HYDROCHLOROTHIAZ* 03/04/2011 1 - Mental Status Change Comments: Mood change LOPRESSOR (METOPROLOL TARTRATE) 03/22/2018 5 - Intolerance Comments: no energy, wiped pt out Date Reviewed: 07/25/2024 Reviewed by: Umu Galicia, IMMANUEL - Fully Assessed Reason for Visit: Appointment [186] Prescriptions as of 07/28/2024 - ciprofloxacin HCl (CIPRO) 500 mg tablet Take 1 tablet by mouth two times a day for 7 days. - cephALEXin (KEFLEX) 500 mg capsule Take 1 capsule by mouth four times daily for 7 days. - meclizine (ANTIVERT) 12.5 mg tab Take 1 tablet by mouth three times a day. - tamsulosin (FLOMAX) 0.4 mg Take 1 capsule by mouth daily at bedtime. - gabapentin (NEURONTIN) 300 mg capsule Take 2 capsules by mouth three times a day for 90 days. - Blood Pressure Monitor 1 Each once daily. - potassium chloride ER (KLOR-CON) 20 mEq tablet Take 1 tablet by mouth once daily. - Melatonin 5 mg cap Take 1 capsule by mouth daily at bedtime. - traZODone (DESYREL) 100 mg tablet Take 1 tablet by mouth daily at bedtime. - ferrous sulfate EC 324 mg (65 mg iron) TbEC Take 1 tablet by mouth two times a day with meals. - Catheter (BARD COUDE TIP CATHETER) 16 Fr misc ISC 2-3 x per day for urinary retention - amLODIPine (NORVASC) 10 mg tablet Take 1 tablet by mouth once daily. - buPROPion XL (WELLBUTRIN XL) 300 mg 24 hr tablet Take 1 tablet by mouth once daily. - polyethylene glycol 3350 17 gram packet Take 17 g by mouth once daily. Dissolve dose in 4 - 8 ounces of liquid and take as directed. - menthol/camphor (BIOFREEZE TOPICAL) Apply to affected area three times daily. Apply to posterior hand and right scapula for pain and order to apply every four hours as needed for pain not to exceed more than four total applications per day. - senna (SENOKOT) 8.6 mg tab Take 1 tablet by mouth twice daily as needed for constipation. Facility-Administered Medications as of 07/28/2024 - lidocaine urojet 2 % 6 mL topical gel (GLYDO) - NaCl 0.9% irrigation solution Meds Comments as of 07/28/2024: 07/28: SEVERE interactions between: meclizine and potassium chloride ER, ciprofloxacin HCl and traZODone, and ciprofloxacin HCl and ferrous sulfate EC Problem List As Of Date 07/26/2024 Noted Resolved Diarrhea [R19.7] 07/31/2010 11/16/2022 Hypertension [I10] 07/31/2010 Sleeping difficulty [G47.9] 09/29/2010 Anxiety [F41.9] 09/29/2010 03/22/2022 Impaired fasting blood sugar [R73.01] 10/02/2010 03/22/2022 S/P hip replacement [Z96.649] 08/07/2014 Shoulder pain, right [M25.511] 09/04/2014 03/22/2022 Primary localized osteoarthrosis of shoulder re*12/12/2014 03/22/2022 S/P shoulder joint replacement [Z96.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] 02/21/2015 Chronic hepatitis C without hepatic coma (HCC) *01/05/2019 06/29/2023 Chronic bilateral low back pain without sciatic*12/18/2020 03/22/2022 MGUS (monoclonal gammopathy of unknown signific*03/15/2021 Numbness and tingling of foot [R20.0, R20.2] 07/20/2021 03/22/2022 Former smoker [Z87.891] 02/23/2022 Neurogenic claudication (HCC) [R29.818] 03/20/2022 Obesity, Class I, BMI 30-34.9 [E66.9] 03/20/2022 S/P laminectomy [Z98.890] 03/20/2022 Post-op pain [G89.18] 03/29/2022 Chronic vertigo [R42] 06/09/2022 Intractable low back pain [M54.59] 11/12/2022 Generalized abdominal pain [R10.84] 11/12/2022 11/16/2022 Rib fractures [S22.49XA] 11/12/2022 Incontinence of urine [R32] 11/14/2022 11/16/2022 Periprosthetic fracture around internal prosthe*01/08/2023 Chronic constipation [K59.09] 03/11/2023 Fecal smearing [R15.1] 03/11/2023 Paresthesia of saddle area: Cauda equina ruled *03/11/2023 DDD (degenerative disc disease), lumbar [M51.36]03/11/2023 Hypogonadism in male [E29.1] 03/11/2023 High serum follicle stimulating hormone (FSH) [*03/11/2023 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 Normal [facility] CNPN Normal [facility] ANES POSTPROC EVALon 024 ANES POSTPROC EVAL HNO ID: [id number] Author: LUIS ANGEL MOELLER DO Service: Anesthesiology Author Type: Anesthesiologist Type: Anesthesia Postprocedure Evaluation Filed: 07/25/2024 16:37 Note Text: POST ANESTHESIA EVALUATION NOTE : 1950 Procedure Summary Date: 07/25/24 Room / Location: [place] [address] [place] [address] OR Anesthesia Start: 1346 Anesthesia Stop: 153 Procedures: TRANSURETHRAL WATERJET ABLATION OF PROSTATE INCLUDING CONTROL OF POST OPERATIVE BLEEDING INCLUDING US GUIDANCE,COMPLETE (VASECTOMY,MEATOTOMY,CYSTOU RETHROSCOPY,UTRETHRAL CALIBARATION AND/OR DILATIO (Prostate) CYSTOSCOPY (Bladder) INSERTION OF TEMPORARY INDWELLING BLADDER CATHETER; SIMPLE (Bladder) Diagnosis: BPH with obstruction/lower urinary tract symptoms Urinary retention (BPH with obstruction/lower urinary tract symptoms [N40.1, N13.8]) (Urinary retention [R33.9]) Surgeons: Vicente Quintana MD Responsible Provider: Luis Angel Moeller DO Anesthesia Type: spinal, MAC ASA Status: 3 Anesthesia Type: spinal, MAC Last Vitals Vitals Value Taken Time BP 112/87 07/25/24 1615 Temp 36.4 ?C (97.5 ?F) 07/25/24 1530 Pulse 82 07/25/24 1635 Resp 17 07/25/24 1635 SpO2 96 % 07/25/24 1634 Vitals shown include unfiled device data. Post Anesthesia Patient Status Patient Evaluation: bedside. Neurological Status: aware and responsive. Pulmonary Status: breathing comfortably on room air Airway Control: returned to baseline unsupported. Cardiovascular Status: stable. Pain Management: clinically adequate Postoperative Hydration: acceptable. Intraoperative Events: no significant anesthesia events Post Operative Nausea/Vomiting Status: no significant post operative nausea or vomiting Recommendation: continue current plan of care and further care per PACU/ICU/floor team. Anesthesia Observations No Documentation SIGNATURE: Luis Angel Moeller DO PATIENT NAME: Miroslava Peralta DATE: July 25, 2024 TIME: 4:36 PM CSN: [id number] Normal [facility] ANES PRE-OPon 07-25-2024 ANES PRE-OP HNO ID: [id number] Author: LUIS ANGEL MOELLER DO Service: Anesthesiology Author Type: Anesthesiologist Type: Anesthesia Preprocedure Evaluation Filed: 07/25/2024 14:09 Note Text: ANESTHESIOLOGY DAY OF SURGERY NOTE : 1950 Procedure Information Anesthesia Start Date/Time: 07/25/24 1346 Procedures: TRANSURETHRAL WATERJET ABLATION OF PROSTATE INCLUDING CONTROL OF POST OPERATIVE BLEEDING INCLUDING US GUIDANCE,COMPLETE (VASECTOMY,MEATOTOMY,CYSTOU RETHROSCOPY,UTRETHRAL CALIBARATION AND/OR DILATIO (Prostate) CYSTOSCOPY (Bladder) INSERTION OF TEMPORARY INDWELLING BLADDER CATHETER; SIMPLE (Bladder) Location: [place] [facility] / [place] [facility] Surgeons: Vicente Quintana MD Estimated body mass index is 29.15 kg/m? as calculated from the following: Height as of 07/10/24: 180.3 cm (5' 11 ). Weight as of 04/10/24: 94.8 kg (209 lb). Most recent hematocrit and potassium results: Hematocrit 40.5 07/10/2024 Hematocrit (POCT) 33 01/08/2023 Potassium 4.4 07/10/2024 Potassium (POCT) 4.3 01/08/2023 Relevant Problems No relevant active problems I - PHYSICAL EVALUATION AIRWAY Patient intubated: No. Tracheostomy tube not present Mallampati: II. TM distance: >3 FB. Neck ROM: full ROM without neurological symptoms. Mouth opening: adequate. Short neck: no. Thick neck: no Hernandez present: no DENTAL Dental findings: missing tooth/teeth. Additional exam findings: yes. CARDIOVASCULAR Rhythm: regular Rate: normal PULMONARY Breath sounds clear to auscultation. Other findings: PMH HTN, BPH, HTN, saddle parathesia, B/L upper extremity weakness and numbness. . II - ANESTHESIA PLAN ASA Score: 3 Anesthetic Plan: spinal and MAC The patient is not a current smoker. NPO Status: adequate Beta Eric Monitoring Plan Monitoring plan: standard ASA. Post Procedure Analgesic Plan Postoperative analgesic plan: multimodal analgesia. Informed Consent Anesthetic risks, benefits, alternatives, personnel and consent discussed: yes. Patient / Responsible Green Party agrees to proceed: yes Patient / Surrogate agrees to blood products: blood products not planned DNR status not reviewed with patient and/or family prior to surgery. Significant changes in the patient condition since the History and Physical, not otherwise documented in primary service progress note: no. Potential Anesthesia issues that may suggest increased risk of complications or contraindication to planned procedure: none. Discussed the possibility of lip / dental damage: yes Vitals Value Taken Time BP 122/79 07/25/24 1254 Pulse 85 07/25/24 1254 Resp 16 07/25/24 1254 Temp 36.4 ?C (97.5 ?F) 07/25/24 1254 SpO2 97 % 07/25/24 1254 Facility-Administered Medications as of 07/25/2024 Medication Dose Route Frequency lidocaine (PF) 10 mg/mL (1 %) 1-2 mg injection (XYLOCAINE) 0.1-0.2 mL INTRADERMAL PRN lactated ringers iv infusion 5-30 mL/hr INTRAVENOUS CONTINUOUS NaCl 0.9% iv flush bag 20 mL INTRAVENOUS PRN [COMPLETED] piperacillin-tazobactam iv piggyback 3.375 g in dextrose (iso-osmotic) 50 mL (ZOSYN) 3.375 g INTRAVENOUS ONCE Outpatient Medications as of 07/25/2024 Medication Sig gabapentin (NEURONTIN) 300 mg capsule Take 2 capsules by mouth three times a day for 90 days. potassium chloride ER (KLOR-CON) 20 mEq tablet Take 1 tablet by mouth once daily. Melatonin 5 mg cap Take 1 capsule by mouth daily at bedtime. traZODone (DESYREL) 100 mg tablet Take 1 tablet by mouth daily at bedtime. ferrous sulfate EC 324 mg (65 mg iron) TbEC Take 1 tablet by mouth two times a day with meals. amLODIPine (NORVASC) 10 mg tablet Take 1 tablet by mouth once daily. (Patient taking differently: Take 10 mg by mouth every morning.) buPROPion XL (WELLBUTRIN XL) 300 mg 24 hr tablet Take 1 tablet by mouth once daily. (Patient taking differently: Take 300 mg by mouth every evening.) polyethylene glycol 3350 17 gram packet Take 17 g by mouth once daily. Dissolve dose in 4 - 8 ounces of liquid and take as directed. menthol/camphor (BIOFREEZE TOPICAL) Apply to affected area three times daily. Apply to posterior hand and right scapula for pain and order to apply every four hours as needed for pain not to exceed more than four total applications per day. senna (SENOKOT) 8.6 mg tab Take 1 tablet by mouth twice daily as needed for constipation. Blood Pressure Monitor 1 Each once daily. Catheter (BARD COUDE TIP CATHETER) 16 Fr misc ISC 2-3 x per day for urinary retention I have interviewed and examined the patient. I have reviewed the medical record and/or the pre-anesthesia evaluation, pertinent labs, and test results. This contains updated information obtained within 48 hours of Surgery/Procedure. SIGNATURE: Luis Angel Moeller DO PATIENT NAME: Miroslava Wellertaw DATE: July 25, 2024 TIME: 2:06 PM CSN: [id number] [facility] HISTORY PHYSICALon HISTORY PHYSICAL HNO ID: [id number] Author: VICENTE QUINTANA MD Service: Urology Author Type: Physician Type: H&P Filed: 07/25/2024 13:34 Note Text: UPDATED HISTORY AND PHYSICAL EXAMINATION SERVICE DATE: 07/25/2024 SERVICE TIME: 1:34 PM PHYSICAL EXAM MUST BE COMPLETED ON ADMISSION The History and Physical (completed in the past 30 days) has been reviewed and the patient has been examined. The contents accurately reflect the patient's condition with the following additions or revisions since the HANDP was completed. Examination indicates no changes. Heart RRR Lungs CT A This HANDP can be found in the Electronic Medical Record dated 07/10/24. SIGNATURE: Vicente Quintana MD PATIENT NAME: Miroslava Monzonw DATE: July 25, 2024 TIME: 1:34 PM PAGER: Normal [facility] OPERATIVE NOon 07-25-2024 OPERATIVE NO HNO ID: [id number] Author: VICENTE QUINTANA MD Service: Urology Author Type: Physician Type: Operative Report Filed: 07/25/2024 15:36 Note Text: OPERATIVE NOTE PROCEDURE DATE: 07/25/2024 PRE OP DIAGNOSIS: BPH with obstruction POST OP DIAGNOSIS: Same OPERATION: Cystoscopy, Aquablation (TRANSURETHRAL WATERJET ABLATION OF PROSTATE INCLUDING CONTROL OF POST OPERATIVE BLEEDING INCLUDING US GUIDANCE, COMPLETE), Transurethral resection of the prostate, Hancock catheter placement, removal of bladder calculi SURGEON: Vicente Quintana MD WIDE AREA NETWORK ENGINEER: Loreta Canas MD ANESTHESIA: MAC + Spinal BLOOD LOSS: <50cc MEDICATIONS: Current Anti-Infective Meds (From admission, onward) Start Stop Route Frequency Ordered 07/25/24 1400 piperacillin-tazobactam iv piggyback 3.375 g in dextrose (iso-osmotic) 50 mL (ZOSYN) 07/25/24 1359 INTRAVENOUS ONCE 07/25/24 1333 DRAINS: 24F 3 way Simplastic hancock catheter with 50cc in balloon COMPLICATIONS: None SPECIMEN: None Brief history indication for procedure: 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 Patient decided upon Aquablation. Understood expectations and risks. Risk include but are not limited to failure of therapy, heart attack, stroke, blood clot, , bleeding, infection, inability to void, incontinence. Informed consent was obtained. Details of procedure: Patient brought to the operating room suite. Spinal with MAC anesthesia was induced. Patient was placed in dorsal lithotomy position. He was prepped and draped in usual sterile fashion. Appropriate surgical timeout was performed. Pre-procedure antibiotics were given. The TRUS stepper was mounted to the articulating arm and secured to the OR bed. The ultrasound probe was attached to the stepper. The ultrasound probe was aligned, and confirmation made that the prostate was centered and aligned using both transverse and sagittal views. The bladder neck, verumontanum and the central/transition zones were identified. A clinical assessment of the prostate was performed measuring dimensions to estimate prostate size and note prostate anatomy. The 24 Mexican AQUABEAM handpiece was inserted into the prostatic urethra and a complete cystoscopic evaluation was was performed by inspecting the prostate, bladder, and identifying the location of the verumontanum/external sphincter. The AQUABEAM handpiece was secured to the handpiece articulating arm. Confirmed alignment of the AQUABEAM handpiece and TRUS probe to be parallel and collinear. Confirmation that the Aquabeam nozzle is centered and anterior of the bladder neck or the median lobe. The cystoscope was then retracted to visualize the verumontanum and external sphincter and the cystoscope tip was positioned just proximal to the external sphincter. Reconfirmed alignment of the TRUS probe with the AQUABEAM handpiece and compression applied with TRUS probe. Horizontalalignment of the handpiece water jet nozzle was performed. The Aquablation treatment zones were planned utilized utilizing real-time TRUS to visualize the contour of the prostate and the depth and radial angles of the resection were defined in the transverse view. In the sagittal view, the Aquabeam nozzle is identified in position registered with the software. The treatment contours were then adjusted to conform to the intended resection margins. The median lobe, bladder neck, and verumontanum were marked and confirmed in the treatment contour The Aquablation treatment was then started following the resection contour confirmed under ultrasound guidance. Total Aquablation time was 7 minutes 14 seconds, using a total of 2 passes. Once Aquablation was complete, cystoscopy and tissue/clot evacuation was performed using a 24F resectoscope until light pink. TUR of the bladder neck circumferentially was completed to remove excess, fluffy treated tissue and to obtain hemostasis. This was approximately 1 cm in length. Then the resected area was cauterized in a spot like fashion to stop any significant bleeding. Hemostasis was obtained. The transrectal ultrasound probe was then removed. A 24 Mexican Simplastic 3-way hancock catheter was inserted, balloon inflated to 50cc. Hancock was irrigated to light pink. CBI was initiated. Traction was placed on the catheter. Patient was then brought to the recovery area in stable condition. The primary surgeon was present and available for all mcdaniels components of the operation. Loreta Canas MD 07/25/2024 3:32 PM I was present for the entire procedure and directly participated in the critical and mcdaniels portions of the surgery. I was immediately available to provide assi (more content not included)... Normal [facility] Bharath 07-17-2024 [facility] Telephone ([employer]) MIROSLAVA PERALTA ([id number]) 1950 [address] [employer] Date Time Provider Department 07/17/24 VICENTE QUINTANA During your visit today, we recorded the following information about you: Norma Porter 07/17/2024 4:05 PM Signed ----- Message from Vicente Quintana MD sent at 07/14/2024 11:32 AM EDT ----- 2 different antibiotics sent to his pharmacy. I would like him to start both prescriptions about 4 to 5 days prior to his surgery Norma Porter 07/17/2024 4:05 PM Signed Pt notified. Norma Porter Allergies As of Date: 07/17/2024 Noted Allergy Reaction CARDIZEM (DILTIAZEM HCL) 03/04/2011 1 - Mental Status Change Comments: panic attack DIOVAN (VALSARTAN) 09/29/2010 8 - GI Upset Comments: Caused nausea HYZAAR (LOSARTAN-HYDROCHLOROTHIAZ* 03/04/2011 1 - Mental Status Change Comments: Mood change LOPRESSOR (METOPROLOL TARTRATE) 03/22/2018 5 - Intolerance Comments: no energy, wiped pt out Date Reviewed: 07/10/2024 Reviewed by: Shelby Lyons MA - Fully Assessed Reason for Visit: Results [95] Prescriptions as of 07/17/2024 - ciprofloxacin HCl (CIPRO) 500 mg tablet Take 1 tablet by mouth two times a day for 7 days. - cephALEXin (KEFLEX) 500 mg capsule Take 1 capsule by mouth three times a day for 7 days. - meclizine (ANTIVERT) 12.5 mg tab Take 1 tablet by mouth three times a day. - tamsulosin (FLOMAX) 0.4 mg Take 1 capsule by mouth daily at bedtime. - gabapentin (NEURONTIN) 300 mg capsule Take 2 capsules by mouth three times a day for 90 days. - Blood Pressure Monitor 1 Each once daily. - potassium chloride ER (KLOR-CON) 20 mEq tablet Take 1 tablet by mouth once daily. - Melatonin 5 mg cap Take 1 capsule by mouth daily at bedtime. - traZODone (DESYREL) 100 mg tablet Take 1 tablet by mouth daily at bedtime. - ferrous sulfate EC 324 mg (65 mg iron) TbEC Take 1 tablet by mouth two times a day with meals. - Catheter (BARD COUDE TIP CATHETER) 16 Fr misc ISC 2-3 x per day for urinary retention - amLODIPine (NORVASC) 10 mg tablet Take 1 tablet by mouth once daily. - buPROPion XL (WELLBUTRIN XL) 300 mg 24 hr tablet Take 1 tablet by mouth once daily. - polyethylene glycol 3350 17 gram packet Take 17 g by mouth once daily. Dissolve dose in 4 - 8 ounces of liquid and take as directed. - menthol/camphor (BIOFREEZE TOPICAL) Apply to affected area three times daily. Apply to posterior hand and right scapula for pain and order to apply every four hours as needed for pain not to exceed more than four total applications per day. - senna (SENOKOT) 8.6 mg tab Take 1 tablet by mouth twice daily as needed for constipation. Facility-Administered Medications as of 07/17/2024 - lidocaine urojet 2 % 6 mL topical gel (GLYDO) - cephALEXin 500 mg cap(s) (KEFLEX) - NaCl 0.9% irrigation solution Problem List As Of Date 07/17/2024 Noted Resolved Diarrhea [R19.7] 07/31/2010 11/16/2022 Hypertension [I10] 07/31/2010 Sleeping difficulty [G47.9] 09/29/2010 Anxiety [F41.9] 09/29/2010 03/22/2022 Impaired fasting blood sugar [R73.01] 10/02/2010 03/22/2022 S/P hip replacement [Z96.649] 08/07/2014 Shoulder pain, right [M25.511] 09/04/2014 03/22/2022 Primary localized osteoarthrosis of shoulder re*12/12/2014 03/22/2022 S/P shoulder joint replacement [Z96.619] 02/21/2015 Chronic hepatitis C without hepatic coma (HCC) *01/05/2019 06/29/2023 Chronic bilateral low back pain without sciatic*12/18/2020 03/22/2022 MGUS (monoclonal gammopathy of unknown signific*03/15/2021 Numbness and tingling of foot [R20.0, R20.2] 07/20/2021 03/22/2022 Former smoker [Z87.891] 02/23/2022 Neurogenic claudication (HCC) [R29.818] 03/20/2022 Obesity, Class I, BMI 30-34.9 [E66.9] 03/20/2022 S/P laminectomy [Z98.890] 03/20/2022 Post-op pain [G89.18] 03/29/2022 Chronic vertigo [R42] 06/09/2022 Intractable low back pain [M54.59] 11/12/2022 Generalized abdominal pain [R10.84] 11/12/2022 11/16/2022 Rib fractures [S22.49XA] 11/12/2022 Incontinence of urine [R32] 11/14/2022 11/16/2022 Periprosthetic fracture around internal prosthe*01/08/2023 Chronic constipation [K59.09] 03/11/2023 Fecal smearing [R15.1] 03/11/2023 Paresthesia of saddle area: Cauda equina ruled *03/11/2023 DDD (degenerative disc disease), lumbar [M51.36]03/11/2023 Hypogonadism in male [E29.1] 03/11/2023 High serum follicle stimulating hormone (FSH) [*03/11/2023 Testicular atrophy [N50.0] 03/11/2023 ED (erectile dysfunction) of organic origin [N5*03/11/2023 Mechanical complication of prosthetic hip impla*03/31/2023 04/05/2023 Stage 3b chronic kidney disease (HCC) [N18.32] 01/03/2024 Encounter for support and coordination of trans*01/04/2024 At high risk for falls [Z91.81] 01/31/2024 Frailty [R54] 01/31/2024 Benign prostatic hyperplasia with incomplete bl*01/31/2024 Overflow incontinence of urine [N39.490] 01/31/2024 (more content not included)... Normal [facility] Bharath 07-14-2024 CNPN Normal [facility] Bharath 07-11-2024 [facility] Telephone ([facility]) MIROSLAVA PERALTA ([id number]) 1950 [place] [employer] Date Time Provider Department 07/11/24 VICENTE QUINTANA During your visit today, we recorded the following information about you: Norma Porter 07/11/2024 3:48 PM Addendum Pt is scheduled for Cysto, Aquablation, hancock with Dr Quintana at [facility] on 07/25/24 @ 2:00 (12:00 arrival). Pt to do labs on 07/10/24. Postop appointments scheduled also, reminders mailed to pt's home. Pt given date, time, prep and arrival instructions in person on 07/10/24. Written info given also. Norma Porter Allergies As of Date: 07/11/2024 Noted Allergy Reaction CARDIZEM (DILTIAZEM HCL) 03/04/2011 1 - Mental Status Change Comments: panic attack DIOVAN (VALSARTAN) 09/29/2010 8 - GI Upset Comments: Caused nausea HYZAAR (LOSARTAN-HYDROCHLOROTHIAZ* 03/04/2011 1 - Mental Status Change Comments: Mood change LOPRESSOR (METOPROLOL TARTRATE) 03/22/2018 5 - Intolerance Comments: no energy, wiped pt out Date Reviewed: 07/10/2024 Reviewed by: Shelby Lyons MA - Fully Assessed Reason for Visit: Surgery Scheduled [Other] Prescriptions as of 07/11/2024 - meclizine (ANTIVERT) 12.5 mg tab Take 1 tablet by mouth three times a day. - tamsulosin (FLOMAX) 0.4 mg Take 1 capsule by mouth daily at bedtime. - gabapentin (NEURONTIN) 300 mg capsule Take 2 capsules by mouth three times a day for 90 days. - Blood Pressure Monitor 1 Each once daily. - potassium chloride ER (KLOR-CON) 20 mEq tablet Take 1 tablet by mouth once daily. - Melatonin 5 mg cap Take 1 capsule by mouth daily at bedtime. - traZODone (DESYREL) 100 mg tablet Take 1 tablet by mouth daily at bedtime. - ferrous sulfate EC 324 mg (65 mg iron) TbEC Take 1 tablet by mouth two times a day with meals. - Catheter (BARD COUDE TIP CATHETER) 16 Fr misc ISC 2-3 x per day for urinary retention - amLODIPine (NORVASC) 10 mg tablet Take 1 tablet by mouth once daily. - buPROPion XL (WELLBUTRIN XL) 300 mg 24 hr tablet Take 1 tablet by mouth once daily. - polyethylene glycol 3350 17 gram packet Take 17 g by mouth once daily. Dissolve dose in 4 - 8 ounces of liquid and take as directed. - menthol/camphor (BIOFREEZE TOPICAL) Apply to affected area three times daily. Apply to posterior hand and right scapula for pain and order to apply every four hours as needed for pain not to exceed more than four total applications per day. - senna (SENOKOT) 8.6 mg tab Take 1 tablet by mouth twice daily as needed for constipation. Facility-Administered Medications as of 07/11/2024 - lidocaine urojet 2 % 6 mL topical gel (GLYDO) - cephALEXin 500 mg cap(s) (KEFLEX) - NaCl 0.9% irrigation solution Problem List As Of Date 07/11/2024 Noted Resolved Diarrhea [R19.7] 07/31/2010 11/16/2022 Hypertension [I10] 07/31/2010 Sleeping difficulty [G47.9] 09/29/2010 Anxiety [F41.9] 09/29/2010 03/22/2022 Impaired fasting blood sugar [R73.01] 10/02/2010 03/22/2022 S/P hip replacement [Z96.649] 08/07/2014 Shoulder pain, right [M25.511] 09/04/2014 03/22/2022 Primary localized osteoarthrosis of shoulder re*12/12/2014 03/22/2022 S/P shoulder joint replacement [Z96.619] 02/21/2015 Chronic hepatitis C without hepatic coma (HCC) *01/05/2019 06/29/2023 Chronic bilateral low back pain without sciatic*12/18/2020 03/22/2022 MGUS (monoclonal gammopathy of unknown signific*03/15/2021 Numbness and tingling of foot [R20.0, R20.2] 07/20/2021 03/22/2022 Former smoker [Z87.891] 02/23/2022 Neurogenic claudication (HCC) [R29.818] 03/20/2022 Obesity, Class I, BMI 30-34.9 [E66.9] 03/20/2022 S/P laminectomy [Z98.890] 03/20/2022 Post-op pain [G89.18] 03/29/2022 Chronic vertigo [R42] 06/09/2022 Intractable low back pain [M54.59] 11/12/2022 Generalized abdominal pain [R10.84] 11/12/2022 11/16/2022 Rib fractures [S22.49XA] 11/12/2022 Incontinence of urine [R32] 11/14/2022 11/16/2022 Periprosthetic fracture around internal prosthe*01/08/2023 Chronic constipation [K59.09] 03/11/2023 Fecal smearing [R15.1] 03/11/2023 Paresthesia of saddle area: Cauda equina ruled *03/11/2023 DDD (degenerative disc disease), lumbar [M51.36]03/11/2023 Hypogonadism in male [E29.1] 03/11/2023 High serum follicle stimulating hormone (FSH) [*03/11/2023 Testicular atrophy [N50.0] 03/11/2023 ED (erectile dysfunction) of organic origin [N5*03/11/2023 Mechanical complication of prosthetic hip impla*03/31/2023 04/05/2023 Stage 3b chronic kidney disease (HCC) [N18.32] 01/03/2024 Encounter for support and coordination of trans*01/04/2024 At high risk for falls [Z91.81] 01/31/2024 Frailty [R54] 01/31/2024 Benign prostatic hyperplasia with incomplete bl*01/31/2024 Overflow incontinence of urine [N39.490] 01/31/2024 Waldenstrom macroglobulinemia (HCC) [C88.0] 02/03/2024 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 Normal [facility] B2 Microglob SerPl-mCncon Trzh-0-Dglnwngqqlp in [Mass/Vol] 2.9 ug/mL Normal <3.1 [facility] Comment on above: Order Comment: Speci men Type: BLOOD SPECIMENOrdering Facility: [facility] Address: [address] [place] [address] Result Comment: Beta -2 Microglobulin test is performed using the [employer] immunoturbidimetric method. Results obtained with different methods or kits cannot be used interchangeably. Performed By: #### 1 952-1, 2885-2, 38732-2, 2532-0 ####[facility] LABCLIA [id number] [place] [address] [place] Bacteria Ur Culton Bacteria identified Cx Nom (U) Abnormal [facility] Comment on above: Performed By: #### 6 30-4 ####[facility] LABCLIA [id number] [place] [address] [place] CBC W Auto Differential pane l (Bld)on 07-10-2024 Basophils (Bld) [#/Vol] 0.09 10*3/uL Normal <0.11 [facility] Comment on above: Order Comment: Speci men Type: BLOOD SPECIMENOrdering Facility: [facility] Address: [address] [place] [address] Performed By: #### 5 7021-8 ####[facility] LABCLIA [id number] [place] [address] [place] Basophils/100 WBC (Bld) 1.0 % Normal [facility] Comment on above: Order Comment: Speci men Type: BLOOD SPECIMENOrdering Facility: [facility] Address: [address] [place] [address] Performed By: #### 5 7021-8 ####[facility] LABCLIA [id number] [place] [address] [place] Differential cell count method Nom (Bld) Auto Normal [facility] Comment on above: Order Comment: Speci men Type: BLOOD SPECIMENOrdering Facility: [facility] Address: [address] [place] [address] Performed By: #### 5 7021-8 ####[facility] LABCLIA [id number] [place] [address] [place] Eosinophils (Bld) [#/Vol] 0.35 10*3/uL Normal <0.46 [facility] Comment on above: Order Comment: Speci men Type: BLOOD SPECIMENOrdering Facility: [facility] Address: [address] [place] [address] Performed By: #### 5 7021-8 ####[facility] LABCLIA [id number] [place] [address] [place] Eosinophils/100 WBC (Bld) 3.8 % Normal [facility] Comment on above: Order Comment: Speci men Type: BLOOD SPECIMENOrdering Facility: [facility] Address: [address] [place] [address] Performed By: #### 5 7021-8 ####[facility] LABCLIA [id number] [place] [address] [place] Erythrocyte distribution width (RBC) [Ratio] 15.2 % High 11.5-15.0 [facility] Comment on above: Order Comment: Speci men Type: BLOOD SPECIMENOrdering Facility: [facility] Address: [address] [place] [address] Performed By: #### 5 7021-8 ####[facility] LABCLIA [id number] [place] [address] [place] Hematocrit (Bld) [Volume fraction] 40.5 % Normal 39.0-51.0 [facility] Comment on above: Order Comment: Speci men Type: BLOOD SPECIMENOrdering Facility: [facility] Address: [address] [place] [address] Performed By: #### 5 7021-8 ####[facility] LABCLIA [id number] [place] [address] [place] Hemoglobin (Bld) [Mass/Vol] 13.0 g/dL Normal 13.0-17.0 [facility] Comment on above: Order Comment: Speci men Type: BLOOD SPECIMENOrdering Facility: [facility] Address: [address] [place] [address] Performed By: #### 5 7021-8 ####[facility] LABCLIA [id number] [place] [address] [place] Immature granulocytes (Bld) [#/Vol] 0.03 10*3/uL Normal <0.10 [facility] Comment on above: Order Comment: Speci men Type: BLOOD SPECIMENOrdering Facility: [facility] Address: [address] [place] [address] Performed By: #### 5 7021-8 ####[facility] LABCLIA [id number] [place] [address] [place] Immature granulocytes/100 WBC (Bld) 0.3 % Normal [facility] Comment on above: Order Comment: Speci men Type: BLOOD SPECIMENOrdering Facility: [facility] Address: [address] [place] [address] Performed By: #### 5 7021-8 ####[facility] LABCLIA [id number] [place] [address] [place] Lymphocytes (Bld) [#/Vol] 1.44 10*3/uL Normal 1.00-4.00 [facility] Comment on above: Order Comment: Speci men Type: BLOOD SPECIMENOrdering Facility: [facility] Address: [address] [place] [address] Performed By: #### 5 7021-8 ####[facility] LABCLIA [id number] [place] [address] [place] Lymphocytes/100 WBC (Bld) 15.6 % Normal [facility] Comment on above: Order Comment: Speci men Type: BLOOD SPECIMENOrdering Facility: [facility] Address: [address] [place] [address] Performed By: #### 5 7021-8 ####[facility] LABIA [id number] [place] [address] [place] MCH (RBC) [Entitic mass] 29.9 pg Normal 26.0-34.0 [facility] Comment on above: Order Comment: Speci men Type: BLOOD SPECIMENOrdering Facility: [facility] Address: [address] [place] [address] Performed By: #### 5 7021-8 ####[facility] [id number] [place] [address] [place] MCHC (RBC) [Mass/Vol] 32.1 g/dL Normal 30.5-36.0 [facility] Comment on above: Order Comment: Speci men Type: BLOOD SPECIMENOrdering Facility: [facility] Address: [address] [place] [address] Performed By: #### 5 7021-8 ####[facility] [id number] [place] [address] [place] MCV (RBC) [Entitic vol] 93.1 fL Normal 80.0-100.0 [facility] Comment on above: Order Comment: Speci men Type: BLOOD SPECIMENOrdering Facility: [facility] Address: [address] [place] [address] Performed By: #### 5 7021-8 ####[facility] LABIA [id number] [place] [address] [place] Monocytes (Bld) [#/Vol] 0.94 10*3/uL High <0.87 [facility] Comment on above: Order Comment: Speci men Type: BLOOD SPECIMENOrdering Facility: [facility] Address: [address] [id number] Performed By: #### 5 7021-8 ####[facility] LABCLIA [id number] [place] [address] [place] Monocytes/100 WBC (Bld) 10.2 % Normal [facility] Comment on above: Order Comment: Speci men Type: BLOOD SPECIMENOrdering Facility: [facility] Address: [address] [place] [address] Performed By: #### 5 7021-8 ####[facility] LABCLIA [id number] [place] [address] [place] Neutrophils (Bld) [#/Vol] 6.39 10*3/uL Normal 1.45-7.50 [facility] Comment on above: Order Comment: Speci men Type: BLOOD SPECIMENOrdering Facility: [facility] Address: [address] [place] [address] Performed By: #### 5 7021-8 ####[facility] LABCLIA [id number] [place] [address] [place] Neutrophils/100 WBC (Bld) 69.1 % Normal [facility] Comment on above: Order Comment: Speci men Type: BLOOD SPECIMENOrdering Facility: [facility] Address: [address] [place] [address] Performed By: #### 5 7021-8 ####[facility] LABCLIA [id number] [place] [id number] [place] Nucleated RBC (Bld) [#/Vol] 10*3/uL Normal <0.01 [facility] Comment on above: Order Comment: Speci men Type: BLOOD SPECIMENOrdering Facility: [facility] Address: [address] [place], [place] [address] Performed By: #### 5 7021-8 ####[facility] LABCLIA [id number] [place] [address] [place] Nucleated RBC/100 WBC (Bld) [Ratio] 0.0 /100 WBC Normal [facility] Comment on above: Order Comment: Speci men Type: BLOOD SPECIMENOrdering Facility: [facility] Address: [address] [place] [address] Performed By: #### 5 7021-8 ####[facility] LABCLIA [id number] [place] [address] [place] Platelet mean volume (Bld) [Entitic vol] 9.8 fL Normal 9.0-12.7 [facility] Comment on above: Order Comment: Speci men Type: BLOOD SPECIMENOrdering Facility: [facility] Address: [address] [place] [address] Performed By: #### 5 7021-8 ####[facility] LABIA [id number] [place] [address] [place] Platelets (Bld) [#/Vol] 310 10*3/uL Normal 150-400 [facility] Comment on above: Order Comment: Speci men Type: BLOOD SPECIMENOrdering Facility: [facility] Address: [address] [place] [address] Performed By: #### 5 7021-8 ####[facility] LABIA [id number] [place] [address] [place] RBC (Bld) [#/Vol] 4.35 10*6/uL Normal 4.20-6.00 [facility] Comment on above: Order Comment: Speci men Type: BLOOD SPECIMENOrdering Facility: [facility] Address: [address] [place] [address] Performed By: #### 5 7021-8 ####[facility] LABCLIA [id number] [place] [address] [place] WBC (Bld) [#/Vol] 9.24 10*3/uL Normal 3.70-11.00 [facility] Comment on above: Order Comment: Speci men Type: BLOOD SPECIMENOrdering Facility: [facility] Address: [address] [place] [address] Performed By: #### 5 7021-8 ####[facility] LABCLIA [id number] [id number] [facility] CNOVon 07-10-2024 CNOV Normal [facility] CNOV Office Visit (AKURFL ) MIROSLAVA PERALTA ([id number]) 1950 [facility] Date Time Provider Department 07/10/24 10:45 AM VICENTE QUINTANA AKURFL During your visit today, we recorded the following information about you: Vicente Quintana MD 07/10/2024 11:09 AM Signed ESTABLISHED PATIENT VISIT HPI Miroslava Peralta is a 73 year old male who presents with a history of BPH. Patient has a history of retention with hydronephrosis On tamsulosin H/o high PVR, B hydro PSA 2.04 10/03/23 Cysto BPH, bilobar TRUS approx 65 g Copied from prior : 02/09/2024 cystoscopy 68 gram prostate FINDINGS Urethra: Normal Sphincter: Normal / Coapted Prostate: Enlarged Lateral Lobes / Enlarged Median Lobe Bladder Neck: Patent Urothelium: normal appearing, no evidence of tumor, no erythema, no foreign body Trabeculation: Yes Inflammation: Yes, mild from catheter Diverticulum: No Ureteral Orifices: normal appearing, orthotopic position, clear efflux bilaterally Trigone: normal appearing 12/31/2023 Renal us IMPRESSION: Moderately distended urinary bladder with debris and significant post void residual. Mild-moderate RIGHT and mild LEFT hydronephrosis. Creatinine Date Value Ref Range Status 03/13/2024 1.21 0.73 - 1.22 mg/dL Final PSA Screening (ng/mL) Date Value 10/03/2013 2.04 08/03/2012 1.83 Color (no units) Date Value 12/28/2023 Yellow 01/05/2019 Yellow Clarity (no units) Date Value 12/28/2023 Clear 01/05/2019 Cloudy Glucose, Urine Date Value 12/28/2023 Negative 01/05/2019 Negative mg/dL Bilirubin, Urine (no units) Date Value 12/28/2023 Negative 01/05/2019 Negative Ketones, Urine (no units) Date Value 12/28/2023 Negative 01/05/2019 Negative Specific [place], Ur (no units) Date Value 12/28/2023 1.013 01/05/2019 1.026 Hemoglobin/Blood,Ur Date Value 12/28/2023 1+ 01/05/2019 Negative pH, Urine (no units) Date Value 12/28/2023 6.0 01/05/2019 5.0 Protein, Urine Date Value 12/28/2023 Negative 01/05/2019 Negative mg/dL Urobilinogen (no units) Date Value 12/28/2023 0.2 EU/dL 01/05/2019 Normal Nitrites (no units) Date Value 12/28/2023 Negative 01/05/2019 Negative Leukest (no units) Date Value 01/05/2019 Negative Leuk Esterase (no units) Date Value 12/28/2023 3+ 24HR Urine Studies: No results for input(s): LUPH , LUCAL , LUCIT , LUOXA , LUURIC , LUVOL , LSCAO , LSCAP , LSURIC , LUCL , CYNDI , NATHALY , LUUREA , LUAM , LUMAG , LUPHOS , LUPCR , LUCREA , LUCRKBW , LUCAKBW , LUCACREA , LUCREACL , LWK , LUSUL in the last 99254 hours. REVIEW OF SYSTEMS Review of Systems Review of system, history including past medical history, surgical history, family history and social history reviewed and confirmed by me. HISTORIES PAST MEDICAL HISTORY No date: Acute pharyngitis, unspecified No date: Acute posthemorrhagic anemia No date: Arthritis No date: 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 No date: Bilateral primary osteoarthritis of hip No date: BPH without obstruction/lower urinary tract symptoms 01/05/2019: Chronic hepatitis C without hepatic coma (HCC) Comment: 10/10/2021 Hep C not detectable 06/16/[address] Augustine. Completed treatment. 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 No date: Dysphagia, oral phase No date: Hip arthritis No date: History of transfusion No date: HTN (hypertension) Comment: Well controlled on medication--Managed by PCP No date: Hydronephrosis, unspecified hydronephrosis type No date: Insomnia, unspecified 11/22/1986: Leukocytosis Comment: [facility] admission - thought leukemia and he refused tests No date: Overflow incontinence of urine No date: S/P hip replacement No date: Urine retention PAST SURGICAL HISTORY 07/25/2014: ARTHRP ACETBLR/PROX FEM PROSTC AGRFT/ALGRFT; Right Comment: Hip replacement, total, right No date: BACK SURGERY HX Comment: Lumbar spine surgery 07/16/2003: COLONOSCOPY Comment: random biopsies negative 06/27/2013: COLONOSCOPY FLX DX W/COLLJ SPEC WHEN PFRMD Comment: Colonoscopy No date: JOINT REPLACEMENT HX; Right Comment: Total shoulder-- 1997: PAST SURGICAL HISTORY OF Comment: shoulder surgery bilateral 1997: PAST SURGICAL HISTORY OF Comment: tendon repair bilat elbows. No date: SKIN BIOPSY HX FAMILY HISTORY Problem Relation Age of Onset Cancer Mother breast cancer Hypertension Mother None Father father in train accident at yuni age Hypertension Sister SOCIAL HISTORY Social History Tobacco Use Smoking status: Former Current packs/day: 0.00 Average packs/day: 2.0 packs/day for 23.0 years (46.0 ttl pk-yrs) Types: Cigarettes Start date: 11/22/1969 Quit date: (more content not included)... Normal [facility] CNOV Office Visit (AKURFL ) MIROSLAVA PERALTA ([id number]) 1950 [employer] Date Time Provider Department 07/10/24 10:30 AM VICENTE QUINTANA During your visit today, we recorded the following information about you: Pulse Blood pressure Height 85/minute 113/77 1.803 m Vicente Quintana MD 07/10/2024 11:07 AM Signed CYSTOSCOPY and TRUS PROCEDURE NOTE: Miroslava Peralta is a 73 year old male who presents with BPH, retention for cystoscopy. Pt ID verified with patient: Yes Procedure verified with patient: Yes Procedure confirmed with physician and client technical support associate: Yes UNIVERSAL PROTOCOL / SAFETY CHECKLIST Procedure to be Performed: cysto and TRUS Sign In: A Moment of CARE was completed. Personnel directly involved with the procedure wore the appropriate PPE (Personal Protective Equipment). Patient/Surrogate Stated/Verified: PATIENT VERIFIED(optional for EMERGENT procedures): Patient name, Date of , Relevant allergies, and The intended procedure Time Out Communication: Intended patient and procedure match the source documents. Consent documented and matches the intended procedure. Sign Out: SIGN OUT (optional for EMERGENT procedures): No specimen collected. Vicente Quintana MD Urinalysis Done and Reviewed: N/A The benefits, risks, alternatives of the cystoscopy procedure and personnel were discussed with the patient. The verbal consent was obtained and the patient agrees to proceed. Procedure: The patient was placed on the procedure table in the supine position and prepped and draped in the usual sterile fashion. 2% Lidocaine Jelly was placed per urethra as an anesthetic in the standard fashion. Once adequate local anesthesia was achieved, the cystoscope was carefully placed into the urethra under direct visual guidance. The scope was negotiated through the pendulous urethra to the level of the bulbar urethra with no evidence of stricture. The verumontanum came into view and the scope was negotiated through the prostatic urethra which showed evidence of bi lobar occlusive disease. The bladder was entered and careful meyers endoscopy was carried out. The posterior, superior and lateral mary and dome of the bladder were all well visualized and the scope was retroflexed upon itself. The findings were consistent with no evidence of bladder mucosal pathology. At the conclusion of the procedure, the cystoscope was removed atraumatically. The patient tolerated the procedure without complications. TRUS PROCEDURE without Biopsy Transrectal Ultrasonography was the performed with patient in lateral decubitus position. PARKER: 3+ US performed: Bladder NO definite lesions ; Post Void Residual : NA Prostate Volume: 65cc No abnormal lesions ; evidence of bi lobar occlusive disease Post Procedure Pain Assessment: 0 Patient was given standard post-procedure instructions. 22 Fr coude replaced ASSESSMENT/PLAN: 1. BPH with obstruction/lower urinary tract symptoms - ICD9: 600.01, 599.69, ICD10: N40.1, N13.8 (primary diagnosis) 2. Urine retention - ICD9: 788.20, ICD10: R33.9 3. Hydronephrosis, unspecified hydronephrosis type - ICD9: 591, ICD10: N13.30 See note Vicente Quintana M.D. Shelby Lyons MA 07/10/2024 10:41 AM Signed Feather Duster Winder present: Shelby Lyons MA Referring Provider: VICENTE QUINTANA [[id number]] Allergies As of Date: 07/10/2024 Noted Allergy Reaction CARDIZEM (DILTIAZEM HCL) 03/04/2011 1 - Mental Status Change Comments: panic attack DIOVAN (VALSARTAN) 09/29/2010 8 - GI Upset Comments: Caused nausea HYZAAR (LOSARTAN-HYDROCHLOROTHIAZ* 03/04/2011 1 - Mental Status Change Comments: Mood change LOPRESSOR (METOPROLOL TARTRATE) 03/22/2018 5 - Intolerance Comments: no energy, wiped pt out Date Reviewed: 07/10/2024 Reviewed by: Shelby Lyons MA - Fully Assessed Reason for Visit: Cystoscopy-1 [303] Trus Procedure [381] Primary Visit Diagnosis:BPH with obstruction/lower urinary tract symptoms [N40.1, N13.8] Other Visit Diagnoses:Urine retention [R33.9] Hydronephrosis, unspecified hydronephrosis type [N13.30] Order(s):US CYSTO/TRUS (POC) GUKI USE ONLY [[id number]] Order #: [id number]: 1 lidocaine urojet 2 % 6 mL topical gel (GLYDO)Disp: Rfl: cephALEXin 500 mg cap(s) (KEFLEX)Disp: Rfl: Prescriptions as of 07/10/2024 - gabapentin (NEURONTIN) 300 mg capsule Take 2 capsules by mouth three times a day for 90 days. - Blood Pressure Monitor 1 Each once daily. - potassium chloride ER (KLOR-CON) 20 mEq tablet Take 1 tablet by mouth once daily. - Melatonin 5 mg cap Take 1 capsule by mouth daily at bedtime. - traZODone (DESYREL) 100 mg tablet Take 1 tablet by mouth daily at bedtime. - meclizine (ANTIVERT) 12.5 mg tab Take 1 tablet by mouth t (more content not included)... Normal [facility] Comprehensive metabolic 2000 panelon 07-10-2024 Albumin [Mass/Vol] 3.8 g/dL Low 3.9-4.9 [facility] Comment on above: Order Comment: Speci men Type: BLOOD SPECIMENOrdering Facility: [facility] Address: [address] [place] [address] Performed By: #### 1 952-1, 2885-2, 76801-6, 2532-0 ####[facility] [id number] [place] [address] [place] ALP [Catalytic activity/Vol] 68 U/L Normal 38-113 [facility] Comment on above: Order Comment: Speci men Type: BLOOD SPECIMENOrdering Facility: [facility] Address: [address] [place] [address] Performed By: #### 1 952-1, 2885-2, 63098-4, 2532-0 ####[facility] [id number] [place] [address] [place] ALT [Catalytic activity/Vol] 11 U/L Normal 10-54 [facility] Comment on above: Order Comment: Speci men Type: BLOOD SPECIMENOrdering Facility: [facility] Address: [address] [place] [address] Performed By: #### 1 952-1, 2885-2, 62218-6, 2532-0 ####[facility] LABCLIA [id number] [address] [address] [place] Anion gap [Moles/Vol] 12 mmol/L Normal 8-15 [facility] Comment on above: Order Comment: Speci men Type: BLOOD SPECIMENOrdering Facility: [facility] Address: [address] [place] [address] Performed By: #### 1 952-1, 2885-2, 70850-2, 2532-0 ####[facility] LABCLIA [id number] [place] [address] [place] AST [Catalytic activity/Vol] 9 U/L Low 14-40 [facility] Comment on above: Order Comment: Speci men Type: BLOOD SPECIMENOrdering Facility: [facility] Address: [address] [place] [address] Performed By: #### 1 952-1, 2885-2, 91256-8, 2532-0 ####[facility] LABCLIA [id number] [place] [id number] [place] Bilirubin [Mass/Vol] mg/dL Low 0.2-1.3 [facility] Comment on above: Order Comment: Speci men Type: BLOOD SPECIMENOrdering Facility: [facility] Address: [address] [place] [address] Performed By: #### 1 952-1, 2885-2, 81636-0, 2532-0 ####[facility] LABCLIA [id number] [place] [id number] [place] Calcium [Mass/Vol] 9.3 mg/dL Normal 8.5-10.2 [facility] Comment on above: Order Comment: Speci men Type: BLOOD SPECIMENOrdering Facility: [facility] Address: [address] [place] [address] Performed By: #### 1 952-1, 2885-2, 36302-0, 2532-0 ####[facility] LABCLIA [id number] [address] [address] [place] Chloride [Moles/Vol] 103 mmol/L Normal 98-107 [facility] Comment on above: Order Comment: Speci men Type: BLOOD SPECIMENOrdering Facility: [facility] Address: [address] [place] [address] Performed By: #### 1 952-1, 2885-2, 42021-5, 2532-0 ####[facility] LABCLIA [id number] [place] [address] [place] CO2 [Moles/Vol] 23 mmol/L Normal 22-30 [facility] Comment on above: Order Comment: Speci men Type: BLOOD SPECIMENOrdering Facility: [facility] Address: [address] [place] [address] Performed By: #### 1 952-1, 2885-2, 01965-5, 2532-0 ####[facility] LABCLIA [id number] [place] [address] [place] Creatinine [Mass/Vol] 1.40 mg/dL High 0.73-1.22 [facility] Comment on above: Order Comment: Speci men Type: BLOOD SPECIMENOrdering Facility: [facility] Address: [address] [place] [address] Performed By: #### 1 952-1, 2885-2, 00815-8, 2532-0 ####[facility] LABCLIA [id number] [place] [address] [place] Creatinine and Glomerular filtration rate.predicted panel (S/P/Bld) 53 mL/min/1.73m??? Low >=60 [facility] Comment on above: Order Comment: Speci men Type: BLOOD SPECIMENOrdering Facility: [facility] Address: [address] [place] [address] Result Comment: Kalani mated Glomerular Filtration Rate (eGFR) is calculated using the 2020 CKD-EPI creatinine equation. This equation utilizes serum creatinine, sex, and age as parameters. The creatinine assay has traceable calibration to isotope dilution-mass spectrometry. Refer to KDIGO guidelines for clinical interpretation. In patients with unstable renal function, e.g. those with acute kidney injury, the eGFR may not accurately reflect actual GFR. Performed By: #### 1 952-1, 2885-2, 07358-0, 2531-0 ####[facility] LABCLIA [id number] [address] [address] [place] Glucose [Mass/Vol] 194 mg/dL High 74-99 [facility] Comment on above: Order Comment: Fernanda franks Type: BLOOD SPECIMENOrdering Facility: [facility] Address: [address] [place] [address] Result Comment: The [place] Diabetes Association (ADA) provides guidance for cutoff values for fasting glucose and random glucose. The ADA defines fasting as no caloric intake for at least 8 hours. Fasting plasma glucose results between 100 to 125 mg/dL indicate increased risk for diabetes (prediabetes).Fasting plasma glucose results greater than or equal to 126 mg/dL meet the criteria for diagnosis of diabetes. In the absence of unequivocal hyperglycemia, results should be confirmed by repeat testing. In a patient with classic symptoms of hyperglycemia or hyperglycemic crisis, random plasma glucose results greater than or equal to 200 mg/dL meet the criteria for diagnosis of diabetes.Reference: Standards of Medical Care in Diabetes 2016, [place] Diabetes Association. Diabetes Care. 2016.39(Suppl 1). Performed By: #### 1 952-1, 2885-2, 94002-0, 2531-0 ####[facility] LABIA [id number] [place] [id number] [place] Potassium [Moles/Vol] 4.4 mmol/L Normal 3.7-5.1 [facility] Comment on above: Order Comment: Fernanda men Type: BLOOD SPECIMENOrdering Facility: [facility] Address: [address] [place] [address] Performed By: #### 1 952-1, 2885-2, 89195-6, 2532-0 ####[facility] LABCLIA [id number] [address] [address] [place] Sodium [Moles/Vol] 138 mmol/L Normal 136-144 [facility] Comment on above: Order Comment: Speci men Type: BLOOD SPECIMENOrdering Facility: [facility] Address: [address] [place] [address] Performed By: #### 1 952-1, 2885-2, 02133-7, 2532-0 ####[facility] LABCLIA [id number] [address] [address] [place] Urea nitrogen [Mass/Vol] 26 mg/dL High 9-24 [facility] Comment on above: Order Comment: Speci men Type: BLOOD SPECIMENOrdering Facility: [facility] Address: [address] [place] [address] Performed By: #### 1 952-1, 2885-2, 51244-8, 2532-0 ####[facility] LABCLIA [id number] [address] [address] [place] IMMUNOFIXATION SCREEN, SERUM on 07-10-2024 INTERPRETATION (MPA) Atypical restricted bands are present in the IgM and kappa regions. Consistent with IgM kappa monoclonal gammopathy. Normal [facility] Comment on above: Order Comment: Speci men Type: BLOOD SPECIMENOrdering Facility: [facility] Address: [address] [place] [address] Performed By: #### I FESC ####[facility] LABCLIA [id number] [address] [address] [place] MPA RESULT M protein is present. Abnormal No M p rotein is identified. [facility] Comment on above: Order Comment: Speci men Type: BLOOD SPECIMENOrdering Facility: [facility] Address: [address] [place] [address] Performed By: #### I FESC ####[facility] LABCLIA [id number] [place] [address] [place] STAFF REVIEW (MPA) Reviewed by Brenden gerber M.D. Normal [facility] Comment on above: Order Comment: Speci men Type: BLOOD SPECIMENOrdering Facility: [facility] Address: [address] [place] [address] Performed By: #### I FES ####[facility] LABCLIA [id number] [place] [address] [place] IMMUNOGLOBULINS,IGG,IGA,IGMo n 07-10-2024 IgA [Mass/Vol] 147 mg/dL Normal 70-400 [facility] Comment on above: Order Comment: Speci men Type: BLOOD SPECIMENOrdering Facility: [facility] Address: [address] [place] [address] Performed By: #### S ERIMM ####[facility] LABIA [id number] [place] [address] [place] IgG [Mass/Vol] 1283 mg/dL Normal 700-1600 [facility] Comment on above: Order Comment: Speci men Type: BLOOD SPECIMENOrdering Facility: [facility] Address: [address] [place] [address] Performed By: #### S ERIMM ####[facility] LABIA [id number] [place] [address] [place] IgM [Mass/Vol] 214 mg/dL Normal 40-230 [facility] Comment on above: Order Comment: Speci men Type: BLOOD SPECIMENOrdering Facility: [facility] Address: [address] [place] [address] Performed By: #### S ERIMM ####[facility] LABIA [id number] [place] [id number] [place] KAPPA/JARAMILLO,FREE,SERon 2023 Immunoglobulin light chains.kappa.free (S) [Mass/Vol] 34.8 mg/L High 3.3-19.4 [facility] Comment on above: Order Comment: Speci men Type: BLOOD SPECIMENOrdering Facility: [facility] Address: [address] [place] [address] Result Comment: Rare ly, increased serum free light chains levels may not be detected or accurately quantified due to prozone phenomenon or in high viscosity samples using this immunoturbidimetric assay. Correlation with other laboratory results and clinical findings is recommended.The Mize Free Light Chain was performed using the Binding Site Optilite immunoturbidimetric method. Result obtained with different assay methods or kits cannot be used interchangeably. Performed By: #### K LFRS ####[facility] LABCLIA [id number] [place] [address] [place] Immunoglobulin light chains.kappa/Immun oglobulin light chains.lambda (S) [Mass ratio] 1.85 High 0.26-1.65 [facility] Comment on above: Order Comment: Speci men Type: BLOOD SPECIMENOrdering Facility: [facility] [facility] Address: [address] [place] [address] Performed By: #### K LFRS ####[facility] LABCLIA [id number] [place] [address] [place] Immunoglobulin light chains.lambda.free [Mass/Vol] 18.8 mg/L Normal 5.7-26.3 [facility] Comment on above: Order Comment: Speci men Type: BLOOD SPECIMENOrdering Facility: [facility] Address: [address] [place] [address] Result Comment: Rare ly, increased serum free light chains levels may not be detected or accurately quantified due to prozone phenomenon or in high viscosity samples using this immunoturbidimetric assay. Correlation with other laboratory results and clinical findings is recommended.The Lambda Free Light Chain was performed using the Binding Site Optilite immunoturbidimetric method. Result obtained with different assay methods or kits cannot be used interchangeably. Performed By: #### K LFRS ####[facility] LABCLIA [id number] [place] [id number] [place] LDH SerPl-cCncon 07-10-2024 LDH [Catalytic activity/Vol] 167 U/L Normal 135-225 [facility] Comment on above: Order Comment: Speci men Type: BLOOD SPECIMENOrdering Facility: [facility] Address: [address] [place] [address] Performed By: #### 1 952-1, 2885-2, 41106-6, 2532-0 ####[facility] LABCLIA [id number] [place] [id number] [place] PROTEIN ELECTROPHORESIS SERU M (P)on 07-10-2024 Albumin [Mass/Vol] 3.53 g/dL Normal 3.43-5.41 [facility] Comment on above: Order Comment: Speci men Type: BLOOD SPECIMENOrdering Facility: [facility] Address: [address] [place] [address] Performed By: #### L [id number] ####[facility] LABCLIA [id number] [place] [address] [place] Alpha 1 globulin Elph [Mass/Vol] 0.33 g/dL Normal 0.18-0.43 [facility] Comment on above: Order Comment: Speci men Type: BLOOD SPECIMENOrdering Facility: [facility] Address: [address] [place] [address] Performed By: #### L [id number] ####[facility] LABCLIA [id number] [place] [id number] [place] Alpha 2 globulin Elph [Mass/Vol] 0.83 g/dL Normal 0.42-0.98 [facility] Comment on above: Order Comment: Speci men Type: BLOOD SPECIMENOrdering Facility: [facility] Address: [address] [place] [address] Performed By: #### L [id number] ####[facility] LABIA [id number] [address] [address] [place] Beta globulin Elph [Mass/Vol] 0.73 g/dL Normal 0.61-1.17 [facility] Comment on above: Order Comment: Speci men Type: BLOOD SPECIMENOrdering Facility: [facility] Address: [address] [place] [address] Performed By: #### L [id number] ####[facility] LABCLIA [id number] [place] [address] [place] Gamma globulin Elph [Mass/Vol] 1.19 g/dL Normal 0.53-1.51 [facility] Comment on above: Order Comment: Speci men Type: BLOOD SPECIMENOrdering Facility: [facility] Address: [address] [place] [address] Performed By: #### L [id number] ####[facility] LABCLIA [id number] [place] [address] [place] INTERPRETATION COMMENT FOR PROTEIN ELECTROPHORESIS Normal [facility] Comment on above: Order Comment: Speci men Type: BLOOD SPECIMENOrdering Facility: [facility] Address: [address] [place] [address] Performed By: #### L [id number] ####[facility] LABCLIA [id number] [place] [address] [place] M-PROTEIN LOCATION Normal [facility] Comment on above: Order Comment: Speci men Type: BLOOD SPECIMENOrdering Facility: [facility] Address: [address] [place] [address] Result Comment: Not Applicable. Performed By: #### L [id number] ####[facility] LABCLIA [id number] [place] [address] [place] Protein Fractions [Interp] An atypical region of restricted mobility is identified on protein electrophoresis. Abnormal No definitive M protein is identified on protein electrophores is. [facility] Comment on above: Order Comment: Speci men Type: BLOOD SPECIMENOrdering Facility: [facility] Address: [address] [place] [address] Performed By: #### L [id number] ####[facility] LABCLIA [id number] [place] [address] [place] Protein.monoclonal Elph [Mass/Vol] 0.00 g/dL Normal <=0.00 [facility] Comment on above: Order Comment: Speci men Type: BLOOD SPECIMENOrdering Facility: [facility] Address: [address] [place] [address] Performed By: #### L [id number] ####[facility] LABIA [id number] [place] [address] [place] SPE STAFF REVIEW Reviewed by Brenden gerber M.D. [facility] Comment on above: Order Comment: Speci men Type: BLOOD SPECIMENOrdering Facility: [facility] Address: [address] [place] [address] Performed By: #### L [id number] ####[facility] LABIA [id number] [place] [address] [place] Prot SerPl-mCncon 07-10-2024 Protein [Mass/Vol] 6.6 g/dL Normal 6.3-8.0 [facility] Comment on above: Order Comment: Speci men Type: BLOOD SPECIMENOrdering Facility: [facility] Address: [address] [place] [address] Performed By: #### 1 952-1, 2885-2, 86444-6, 2532-0 ####[facility] LABIA [id number] [place] [address] [place] CNNURSEon 07-04-2024 CNNURSE Normal [facility] CNPNon 06-21-2024 CNPN Normal [facility] CNOVon 05-30-2024 CNOV Normal [facility] US CAROTID ARTERIES [facility] LABon 04-28-2024 US [facility] LAB Normal [facility] CNPNon 04-25-2024 CNPN Normal [facility] CNPNon 04-21-2024 CNPN Normal [facility] CNOVon 04-19-2024 CNOV Normal [facility] CNPNon 04-19-2024 CNPN Normal [facility] CNPNon 04-14-2024 CNPN Normal [facility] CNPNon 04-12-2024 CNPN Normal [facility] CNOVon 04-10-2024 CNOV Normal [facility] CNPNon 04-05-2024 CNPN Normal [facility] CNPNon 04-04-2024 CNPN Normal [facility] CNPNon 03-23-2024 CNPN Normal [facility] CNPNon 03-21-2024 CNPN Normal [facility] CNPNon 03-20-2024 CNPN Normal [facility] CNPNon 03-17-2024 CNPN Normal [facility] CNPNon 03-16-2024 CNPN Normal [facility] CNPNon 03-15-2024 CNPN Normal [facility] ACETYLCHOLINE RECEPTOR MODUL ATING ANTIBODYon 03-13-2024 ACETYLCHOLINE RECEPT/MODULATING 0 % Normal <=45 [facility] Comment on above: Order Comment: Speci men Type: BLOOD SPECIMENOrdering Facility: [facility] Address: [address] [place] [address] Result Comment: INTE RPRETIVE INFORMATION: Acetylcholine Modulating Ab Negative .......... 0-45 percent modulating Positive .......... 46 percent or greater modulatingApproximately 85-90 percent of patients with myasthenia gravis(MG) express antibodies to the acetylcholine receptor (AChR),which can be divided into binding, blocking, and modulatingantibodies. Binding antibody can activate complement and lead toloss of AChR. Blocking antibody may impair binding ofacetylcholine to the receptor, leading to poor muscle contraction.Modulating antibody causes receptor endocytosis resulting in lossof AChR expression, which correlates most closely with clinicalseverity of disease. Approximately 10-15 percent of individualswith confirmed myasthenia gravis have no measurable binding,blocking, or modulating antibodies.This test was developed and its performance characteristicsdetermined by [facility]. It has not been cleared orapproved by the [place] Food and Drug Administration. This test wasperformed in a CLIA certified laboratory and is intended forclinical purposes.Performed By: [facility] [id number] [place], [place] [address]Rzazpxhsqs Director: Joshua Mota MD, PhDCLIA Number: [id number] Performed By: #### A CEMOD ####[facility] [id number] [place] [address] CBC W Auto Differential pane l (Bld)on 03-13-2024 Basophils (Bld) [#/Vol] 0.09 10*3/uL [facility] Basophils/100 WBC (Bld) 1.3 % [facility] Differential cell count method Nom (Bld) Auto [facility] Eosinophils (Bld) [#/Vol] 0.34 10*3/uL [facility] Eosinophils/100 WBC (Bld) 4.8 % [facility] Erythrocyte distribution width (RBC) [Ratio] 15.5 % High 11.5 - 15.0 % [facility] Hematocrit (Bld) [Volume fraction] 37.4 % Low 39.0 - 51.0 % [facility] Hemoglobin (Bld) [Mass/Vol] 12.1 g/dL Low 13.0 - 17.0 g/dL [facility] Immature granulocytes (Bld) [#/Vol] [facility] Immature granulocytes/100 WBC (Bld) 0.3 % [facility] Interpretation and review of laboratory results Abnormal [facility] Lymphocytes (Bld) [#/Vol] 1.46 10*3/uL [facility] Lymphocytes/100 WBC (Bld) 20.5 % [facility] MCH (RBC) [Entitic mass] 29.8 pg 26.0 - 34.0 pg [facility] MCHC (RBC) [Mass/Vol] 32.4 g/dL 30.5 - 36.0 g/dL [facility] MCV (RBC) [Entitic vol] 92.1 fL 80.0 - 100.0 fL [facility] Monocytes (Bld) [#/Vol] 0.69 10*3/uL [facility] Monocytes/100 WBC (Bld) 9.7 % [facility] Neutrophils (Bld) [#/Vol] 4.51 10*3/uL [facility] Neutrophils/100 WBC (Bld) 63.4 % [facility] Nucleated RBC (Bld) [#/Vol] NINF [facility] Nucleated RBC/100 WBC (Bld) [Ratio] 0.0 % /100 WBC [facility] Platelet mean volume (Bld) [Entitic vol] 9.6 fL 9.0 - 12.7 fL [facility] Platelets (Bld) [#/Vol] 323 10*3/uL [facility] RBC (Bld) [#/Vol] 4.06 10*6/uL Low 4.20 - 6.0 0 m/uL [facility] WBC (Bld) [#/Vol] 7.11 10*3/uL [facility] Basophils (Bld) [#/Vol] 0.09 10*3/uL Normal <0.11 [facility] Comment on above: Order Comment: Speci men Type: BLOOD SPECIMENOrdering Facility: [facility] Address: [address] [place] [address] Performed By: #### 5 7021-8 ####[facility] LABCLIA [id number] [place] [address] [place] Basophils/100 WBC (Bld) 1.3 % Normal [facility] Comment on above: Order Comment: Speci men Type: BLOOD SPECIMENOrdering Facility: [facility] Address: [address] [place] [address] Performed By: #### 5 7021-8 ####[facility] LABCLIA [id number] [place] [address] [place] Differential cell count method Nom (Bld) Auto Normal [facility] Comment on above: Order Comment: Speci men Type: BLOOD SPECIMENOrdering Facility: [facility] Address: [address] [place] [address] Performed By: #### 5 7021-8 ####[facility] LABCLIA [id number] [place] [address] [place] Eosinophils (Bld) [#/Vol] 0.34 10*3/uL Normal <0.46 [facility] Comment on above: Order Comment: Speci men Type: BLOOD SPECIMENOrdering Facility: [facility] Address: [address] [place] [address] Performed By: #### 5 7021-8 ####[facility] LABCLIA [id number] [place] [address] [place] Eosinophils/100 WBC (Bld) 4.8 % Normal [facility] Comment on above: Order Comment: Speci men Type: BLOOD SPECIMENOrdering Facility: [facility] Address: [address] [place] [address] Performed By: #### 5 7021-8 ####[facility] LABIA [id number] [place] [address] [place] Erythrocyte distribution width (RBC) [Ratio] 15.5 % High 11.5-15.0 [facility] Comment on above: Order Comment: Speci men Type: BLOOD SPECIMENOrdering Facility: [facility] Address: [address] [place] [address] Performed By: #### 5 7021-8 ####[facility] LABIA [id number] [place] [address] [place] Hematocrit (Bld) [Volume fraction] 37.4 % Low 39.0-51.0 [facility] Comment on above: Order Comment: Speci men Type: BLOOD SPECIMENOrdering Facility: [facility] Address: [address] [place] [address] Performed By: #### 5 7021-8 ####[facility] LABIA [id number] [place] [address] [place] Hemoglobin (Bld) [Mass/Vol] 12.1 g/dL Low 13.0-17.0 [facility] Comment on above: Order Comment: Speci men Type: BLOOD SPECIMENOrdering Facility: [facility] Address: [address] [place] [address] Performed By: #### 5 7021-8 ####[facility] LABCLIA [id number] [place] [address] [place] Immature granulocytes (Bld) [#/Vol] 10*3/uL Normal <0.10 [facility] Comment on above: Order Comment: Speci men Type: BLOOD SPECIMENOrdering Facility: [facility] Address: [address] [place] [address] Performed By: #### 5 7021-8 ####[facility] LABCLIA [id number] [place] [address] [place] Immature granulocytes/100 WBC (Bld) 0.3 % Normal [facility] Comment on above: Order Comment: Speci men Type: BLOOD SPECIMENOrdering Facility: [facility] Address: [address] [place] [address] Performed By: #### 5 7021-8 ####[facility] LABCLIA [id number] [place] [address] [place] Lymphocytes (Bld) [#/Vol] 1.46 10*3/uL Normal 1.00-4.00 [facility] Comment on above: Order Comment: Speci men Type: BLOOD SPECIMENOrdering Facility: [facility] Address: [address] [place] [address] Performed By: #### 5 7021-8 ####[facility] LABCLIA [id number] [place] [address] [place] Lymphocytes/100 WBC (Bld) 20.5 % Normal [facility] Comment on above: Order Comment: Speci men Type: BLOOD SPECIMENOrdering Facility: [facility] Address: [address] [place] [address] Performed By: #### 5 7021-8 ####[facility] LABCLIA [id number] [place] [address] [place] MCH (RBC) [Entitic mass] 29.8 pg Normal 26.0-34.0 [facility] Comment on above: Order Comment: Speci men Type: BLOOD SPECIMENOrdering Facility: [facility] Address: [address] [place] [address] Performed By: #### 5 7021-8 ####[facility] LABIA [id number] [place] [address] [place] MCHC (RBC) [Mass/Vol] 32.4 g/dL Normal 30.5-36.0 [facility] Comment on above: Order Comment: Speci men Type: BLOOD SPECIMENOrdering Facility: [facility] Address: [address] [place] [address] Performed By: #### 5 7021-8 ####[facility] LABIA [id number] [place] [address] [place] MCV (RBC) [Entitic vol] 92.1 fL Normal 80.0-100.0 [facility] Comment on above: Order Comment: Speci men Type: BLOOD SPECIMENOrdering Facility: [facility] Address: [address] [place] [address] Performed By: #### 5 7021-8 ####[facility] LABIA [id number] [place] [address] [place] Monocytes (Bld) [#/Vol] 0.69 10*3/uL Normal <0.87 [facility] Comment on above: Order Comment: Speci men Type: BLOOD SPECIMENOrdering Facility: [facility] Address: [address] [place] [address] Performed By: #### 5 7021-8 ####[facility] LABIA [id number] [place] [address] [place] Monocytes/100 WBC (Bld) 9.7 % Normal [facility] Comment on above: Order Comment: Speci men Type: BLOOD SPECIMENOrdering Facility: [facility] Address: [address] [place] [address] Performed By: #### 5 7021-8 ####[facility] LABCLIA [id number] [place] [address] [place] Neutrophils (Bld) [#/Vol] 4.51 10*3/uL Normal 1.45-7.50 [facility] Comment on above: Order Comment: Speci men Type: BLOOD SPECIMENOrdering Facility: [facility] Address: [address] [place] [address] Performed By: #### 5 7021-8 ####[facility] LABCLIA [id number] [place] [address] [place] Neutrophils/100 WBC (Bld) 63.4 % Normal [facility] Comment on above: Order Comment: Speci men Type: BLOOD SPECIMENOrdering Facility: [facility] Address: [address] [place] [address] Performed By: #### 5 7021-8 ####[facility] LABCLIA [id number] [place] [address] [place] Nucleated RBC (Bld) [#/Vol] 10*3/uL Normal <0.01 [facility] Comment on above: Order Comment: Speci men Type: BLOOD SPECIMENOrdering Facility: [facility] Address: [address] [place] [address] Performed By: #### 5 7021-8 ####[facility] LABCLIA [id number] [place] [address] [place] Nucleated RBC/100 WBC (Bld) [Ratio] 0.0 /100 WBC Normal [facility] Comment on above: Order Comment: Speci men Type: BLOOD SPECIMENOrdering Facility: [facility] Address: [address] [place] [address] Performed By: #### 5 7021-8 ####[facility] LABCLIA [id number] [place] [address] [place] Platelet mean volume (Bld) [Entitic vol] 9.6 fL Normal 9.0-12.7 [facility] Comment on above: Order Comment: Speci men Type: BLOOD SPECIMENOrdering Facility: [facility] Address: [address] [place] [address] Performed By: #### 5 7021-8 ####[facility] LABCLIA [id number] [place] [address] [place] Platelets (Bld) [#/Vol] 323 10*3/uL Normal 150-400 [facility] Comment on above: Order Comment: Speci men Type: BLOOD SPECIMENOrdering Facility: [facility] Address: [address] [place] [address] Performed By: #### 5 7021-8 ####[facility] LABCLIA [id number] [place] [address] [place] RBC (Bld) [#/Vol] 4.06 10*6/uL Low 4.20-6.00 [facility] Comment on above: Order Comment: Speci men Type: BLOOD SPECIMENOrdering Facility: [facility] Address: [address] [place] [address] Performed By: #### 5 7021-8 ####[facility] LABIA [id number] [place] [address] [place] WBC (Bld) [#/Vol] 7.11 10*3/uL Normal 3.70-11.00 [facility] Comment on above: Order Comment: Speci men Type: BLOOD SPECIMENOrdering Facility: [facility] Address: [address] [place] [address] Performed By: #### 5 7021-8 ####[facility] LABIA [id number] [place] [id number] [place] CNOVon 03-13-2024 CNOV Normal [facility] CNPNon 03-13-2024 CNPN Normal [facility] metabolic 2000 panelon 03-13-2024 Albumin [Mass/Vol] 3.8 g/dL Low 3.9 - 4.9 g/dL [facility] ALP [Catalytic activity/Vol] 65 U/L 38 - 113 U/L [facility] ALT [Catalytic activity/Vol] 7 U/L Low 10 - 54 U/L [facility] Anion gap [Moles/Vol] 11 mmol/L 9 - 18 mmol/L [facility] AST [Catalytic activity/Vol] 12 U/L Low 14 - 40 U/L [facility] Bilirubin [Mass/Vol] 0.2 mg/dL 0.2 - 1.3 mg/dL [facility] Calcium [Mass/Vol] 9.5 mg/dL 8.5 - 10. 2 mg/dL [facility] Chloride [Moles/Vol] 103 mmol/L 97 - 105 mmol/L [facility] CO2 [Moles/Vol] 20 mmol/L Low 22 - 30 mmol/L [facility] Creatinine [Mass/Vol] 1.21 mg/dL 0.73 - 1.22 mg/dL [facility] GFR/1.73 sq M.predicted among non-blacks MDRD (S/P/Bld) [Vol rate/Area] 63 mL/min/{1.73_m2} - PINF [facility] Comment on above: Estimated Glomerular Filtration Rate (eGFR) is calculated using the 2020 CKD-EPI creatinine equation. This equation utilizes serum creatinine, sex, and age as parameters. The creatinine assay has traceable calibration to isotope dilution-mass spectrometry. Refer to KDIGO guidelines for clinical interpretation. In patients with unstable renal function, e.g. those with acute kidney injury, the eGFR may not accurately reflect actual GFR. Glucose [Mass/Vol] 101 mg/dL High 74 - 99 mg/dL [facility] Comment on above: The [place] Diab[employer] s Association (ADA) provides guidance for cutoff values for fasting glucose and random glucose. The ADA defines fasting as no caloric intake for at least 8 hours. Fasting plasma glucose results between 100 to 125 mg/dL indicate increased risk for diabetes (prediabetes). Fasting plasma glucose results greater than or equal to 126 mg/dL meet the criteria for diagnosis of diabetes. In the absence of unequivocal hyperglycemia, results should be confirmed by repeat testing. In a patient with classic symptoms of hyperglycemia or hyperglycemic crisis, random plasma glucose results greater than or equal to 200 mg/dL meet the criteria for diagnosis of diabetes. Reference: Standards of Medical Care in Diabetes 2016, [place] [employer] Association. Diabetes Care. 2016.39(Suppl 1). Interpretation and review of laboratory results Abnormal [facility] Potassium [Moles/Vol] 4.4 mmol/L 3.7 - 5.1 mmol/L [facility] Protein [Mass/Vol] 7.4 g/dL 6.3 - 8.0 g/dL [facility] Sodium [Moles/Vol] 134 mmol/L Low 136 - 144 mmol/L [facility] Urea nitrogen [Mass/Vol] 19 mg/dL 9 - 24 mg/dL [facility] Albumin [Mass/Vol] 3.8 g/dL Low 3.9-4.9 [facility] Comment on above: Order Comment: Speci men Type: BLOOD SPECIMENOrdering Facility: [facility] Address: [address] [place] [address] Performed By: #### 1 9123-9, 49873-9, 2132-07, 6-3 ####[facility] LABIA [id number] [place] [address] [place] ALP [Catalytic activity/Vol] 65 U/L Normal 38-113 [facility] Comment on above: Order Comment: Speci golden Type: BLOOD SPECIMENOrdering Facility: [facility] Address: [address] [place] [address] Performed By: #### 1 9123-9, 23423-1, 9, 6-3 ####[facility] LABCLIA [id number] [place] [address] [place] ALT [Catalytic activity/Vol] 7 U/L Low 10-54 [facility] Comment on above: Order Comment: Speci men Type: BLOOD SPECIMENOrdering Facility: [facility] Address: [address] [place] [address] Performed By: #### 1 9123-9, 50742-8, 9, 6-3 ####[facility] LABCLIA [id number] [place] [id number] [place] Anion gap [Moles/Vol] 11 mmol/L Normal 9-18 [facility] Comment on above: Order Comment: Speci men Type: BLOOD SPECIMENOrdering Facility: [facility] Address: [address] [place] [address] Performed By: #### 1 9123-9, 96891-0, 2131-9, 3016-3 ####[facility] LABCLIA [id number] [place] [address] [place] AST [Catalytic activity/Vol] 12 U/L Low 14-40 [facility] Comment on above: Order Comment: Speci men Type: BLOOD SPECIMENOrdering Facility: [facility] Address: [address] [place] [address] Performed By: #### 1 9123-9, 09319-6, 2131-9, 3016-3 ####[facility] LABCLIA [id number] [place] [address] [place] Bilirubin [Mass/Vol] 0.2 mg/dL Normal 0.2-1.3 [facility] Comment on above: Order Comment: Speci men Type: BLOOD SPECIMENOrdering Facility: [facility] Address: [address] [place] [address] Performed By: #### 1 9123-9, 98339-8, 2131-9, 3016-3 ####[facility] LABCLIA [id number] [place] [id number] [place] Calcium [Mass/Vol] 9.5 mg/dL Normal 8.5-10.2 [facility] Comment on above: Order Comment: Speci men Type: BLOOD SPECIMENOrdering Facility: [facility] Address: [address] [place] [address] Performed By: #### 1 9123-9, 41617-8, 213-9, 3016-3 ####[facility] LABCLIA [id number] [place] [id number] [place] Chloride [Moles/Vol] 103 mmol/L Normal 97-105 [facility] Comment on above: Order Comment: Speci men Type: BLOOD SPECIMENOrdering Facility: [facility] Address: [address] [place] [address] Performed By: #### 1 9123-9, 78482-6, 2132-9, 3016-3 ####[facility] LABCLIA [id number] [place] [address] [place] CO2 [Moles/Vol] 20 mmol/L Low 22-30 [facility] Comment on above: Order Comment: Speci men Type: BLOOD SPECIMENOrdering Facility: [facility] Address: [address] [place] [address] Performed By: #### 1 9123-9, 20486-9, 2132-9, 3016-3 ####[facility] LABCLIA [id number] [place] [address] [place] Creatinine [Mass/Vol] 1.21 mg/dL Normal 0.73-1.22 [facility] Comment on above: Order Comment: Speci men Type: BLOOD SPECIMENOrdering Facility: [facility] Address: [address] [place] [address] Performed By: #### 1 9123-9, 05442-9, 2132-9, 3016-3 ####[facility] LABCLIA [id number] [place] [address] [place] Creatinine and Glomerular filtration rate.predicted panel (S/P/Bld) 63 mL/min/1.73m??? Normal >=60 [facility] Comment on above: Order Comment: Speci men Type: BLOOD SPECIMENOrdering Facility: [facility] Address: [address] [place] [address] Result Comment: Kalani mated Glomerular Filtration Rate (eGFR) is calculated using the 2020 CKD-EPI creatinine equation. This equation utilizes serum creatinine, sex, and age as parameters. The creatinine assay has traceable calibration to isotope dilution-mass spectrometry. Refer to KDIGO guidelines for clinical interpretation. In patients with unstable renal function, e.g. those with acute kidney injury, the eGFR may not accurately reflect actual GFR. Performed By: #### 1 23-9, 09630-9, 2132-07, 6-3 ####[facility] LABCLIA [id number] [address] [address] [place] Glucose [Mass/Vol] 101 mg/dL High 74-99 [facility] Comment on above: Order Comment: Fernanda franks Type: BLOOD SPECIMENOrdering Facility: [facility] Address: [address] [place] [address] Result Comment: The [place] Diabetes Association (ADA) provides guidance for cutoff values for fasting glucose and random glucose. The ADA defines fasting as no caloric intake for at least 8 hours. Fasting plasma glucose results between 100 to 125 mg/dL indicate increased risk for diabetes (prediabetes).Fasting plasma glucose results greater than or equal to 126 mg/dL meet the criteria for diagnosis of diabetes. In the absence of unequivocal hyperglycemia, results should be confirmed by repeat testing. In a patient with classic symptoms of hyperglycemia or hyperglycemic crisis, random plasma glucose results greater than or equal to 200 mg/dL meet the criteria for diagnosis of diabetes.Reference: Standards of Medical Care in Diabetes 2016, [place] Diabetes Association. Diabetes Care. 2016.39(Suppl 1). Performed By: #### 1 23-9, 48112-5, 2132-07, 6-3 ####[facility] LABCLIA [id number] [address] [address] [place] Potassium [Moles/Vol] 4.4 mmol/L Normal 3.7-5.1 [facility] Comment on above: Order Comment: Fernanda franks Type: BLOOD SPECIMENOrdering Facility: [facility] Address: [address] [place] [address] Performed By: #### 1 23-9, 82301-8, 2132-07, 6-3 ####[facility] LABCLIA [id number] [address] [address] [place] Protein [Mass/Vol] 7.4 g/dL Normal 6.3-8.0 [facility] Comment on above: Order Comment: Speci men Type: BLOOD SPECIMENOrdering Facility: [facility] Address: [address] [place], [place] [address] Performed By: #### 1 9123-9, 63536-3, 9, 6-3 ####[facility] LABCLIA [id number] [place] [address] [place] Sodium [Moles/Vol] 134 mmol/L Low 136-144 [facility] Comment on above: Order Comment: Speci men Type: BLOOD SPECIMENOrdering Facility: [facility] Address: [address] [place] [address] Performed By: #### 1 9123-9, 70563-1, 9, 6-3 ####[facility] LABCLIA [id number] [place] [address] [place] Urea nitrogen [Mass/Vol] 19 mg/dL Normal 9-24 [facility] Comment on above: Order Comment: Speci men Type: BLOOD SPECIMENOrdering Facility: [facility] Address: [address] [place] [address] Performed By: #### 1 9123-9, 02651-7, 9, 6-3 ####[facility] LABCLIA [id number] [place] [id number] [place] MAGNESIUMon 03-13-2024 Magnesium [Mass/Vol] 2.1 mg/dL 1.7 - 2.3 mg/dL [facility] Magnesium SerPl-mCncon 03-13 Magnesium [Mass/Vol] 2.1 mg/dL Normal 1.7-2.3 [facility] Comment on above: Order Comment: Speci men Type: BLOOD SPECIMENOrdering Facility: [facility] Address: [address] [place] [address] Performed By: #### 1 9123-9, 67884-3, 9, 6-3 ####[facility] LABCLIA [id number] [place] [id number] [place] Magnesium [Mass/Vol]on 03-13 Interpretation and review of laboratory results Normal [facility] No Panel Informationon 03-13 Interpretation and review of laboratory results Normal [facility] THYROID STIMULATING HORMONEo n 03-13-2024 TSH Qn 2.000 m[IU]/L [facility] TSH SerPl-aCncon 03-13-2024 TSH Qn 2.000 m[IU]/L Normal 0.270-4.200 [facility] Comment on above: Order Comment: Speci men Type: BLOOD SPECIMENOrdering Facility: [facility] Address: [address] [place] [address] Performed By: #### 1 9123-9, 39469-1, 2132-07, 6-3 ####[facility] LABCLIA [id number] [place] [id number] [place] VITAMIN B12on 03-13-2024 Cobalamin (Vitamin B12) [Mass/Vol] 414 pg/mL 232 - 1245 pg/mL [facility] Vit B12 SerPl-mCncon 024 Cobalamin (Vitamin B12) [Mass/Vol] 414 pg/mL Normal 232-1245 [facility] Comment on above: Order Comment: Speci men Type: BLOOD SPECIMENOrdering Facility: [facility] Address: [address] [place] [id number] Performed By: #### 1 9123-9, 44527-3, 9, 6-3 ####[facility] LABCLIA [id number] [place] [address] [place] CNPNon 03-10-2024 CNPN Normal [facility] CNOVon 03-06-2024 CNOV Normal [facility] CNPNon 03-02-2024 CNPN Normal [facility] CNPTOUTREACHon 02-24-2024 CNPTOUTREACH Normal [facility] CNPNon 02-14-2024 CNPN Normal [facility] CNOVon 02-09-2024 CNOV Normal [facility] CNPNon 02-09-2024 CNPN Normal [facility] US Prostate transrectalon [facility] CNPNon 02-08-2024 CNPN Normal [facility] CNPNon 02-04-2024 CNPN Normal [facility] CNCOon 02-03-2024 CNCO Letter Text Normal [facility] CNOVon 02-03-2024 CNOV Normal [facility] CNPNon 02-03-2024 CNPN Normal [facility] CNPNon 02-01-2024 CNPN Normal [facility] CBC W Auto Differential pane l (Bld)on 01-31-2024 Basophils (Bld) [#/Vol] 0.10 10*3/uL Normal <0.11 [facility] Comment on above: Order Comment: Speci men Type: BLOOD SPECIMENOrdering Facility: [facility] Address: [address] [place] [address] Performed By: #### 5 7021-8 ####[facility] [id number] [place] [address] [place] Basophils/100 WBC (Bld) 1.1 % Normal [facility] Comment on above: Order Comment: Speci men Type: BLOOD SPECIMENOrdering Facility: [facility] Address: [address] [place] [address] Performed By: #### 5 7021-8 ####[facility] [id number] [place] [address] [place] Differential cell count method Nom (Bld) Auto Normal [facility] Comment on above: Order Comment: Speci men Type: BLOOD SPECIMENOrdering Facility: [facility] Address: [address] [place] [address] Performed By: #### 5 7021-8 ####[facility] HOSPITALNCALBINO [id number] [place] [address] [place] Eosinophils (Bld) [#/Vol] 0.39 10*3/uL Normal <0.46 [facility] Comment on above: Order Comment: Speci men Type: BLOOD SPECIMENOrdering Facility: [facility] Address: [address] [place] [address] Performed By: #### 5 7021-8 ####[facility] HOSPITALJUSTINE [id number] [place] [address] [place] Eosinophils/100 WBC (Bld) 4.4 % Normal [facility] Comment on above: Order Comment: Speci men Type: BLOOD SPECIMENOrdering Facility: [facility] Address: [address] [place] [address] Performed By: #### 5 7021-8 ####[facility]OSPITALJEROMEGUNNISON VALLEY HOSPITAL [id number] [place] [address] [place] Erythrocyte distribution width (RBC) [Ratio] 16.4 % High 11.5-15.0 [facility] Comment on above: Order Comment: Speci men Type: BLOOD SPECIMENOrdering Facility: [facility] Address: [address] [place] [address] Performed By: #### 5 7021-8 ####[facility] HOS[facility]ITALNCLIA [id number] [place] [address] [place] Hematocrit (Bld) [Volume fraction] 33.4 % Low 39.0-51.0 [facility] Comment on above: Order Comment: Speci men Type: BLOOD SPECIMENOrdering Facility: [facility] Address: [address] [place] [address] Performed By: #### 5 7021-8 ####[facility] HOS[facility]ITALNCLIA [id number] [place] [address] [place] Hemoglobin (Bld) [Mass/Vol] 11.0 g/dL Low 13.0-17.0 [facility] Comment on above: Order Comment: Speci men Type: BLOOD SPECIMENOrdering Facility: [facility] Address: [address] [place] [address] Performed By: #### 5 7021-8 ####[facility]PITALNCGUNNISON VALLEY HOSPITAL [id number] [place] [address] [place] Immature granulocytes (Bld) [#/Vol] 0.03 10*3/uL Normal <0.10 [facility] Comment on above: Order Comment: Speci men Type: BLOOD SPECIMENOrdering Facility: [facility] Address: [address] [place] [address] Performed By: #### 5 7021-8 ####[facility] [id number] [place] [address] [place] Immature granulocytes/100 WBC (Bld) 0.3 % Normal [facility] Comment on above: Order Comment: Speci men Type: BLOOD SPECIMENOrdering Facility: [facility] Address: [address] [place] [address] Performed By: #### 5 7021-8 ####[facility] [id number] [place] [address] [place] Lymphocytes (Bld) [#/Vol] 1.71 10*3/uL Normal 1.00-4.00 [facility] Comment on above: Order Comment: Speci men Type: BLOOD SPECIMENOrdering Facility: [facility] Address: [address] [place] [address] Performed By: #### 5 7021-8 ####[facility] [id number] [place] [address] [place] Lymphocytes/100 WBC (Bld) 19.4 % Normal [facility] Comment on above: Order Comment: Speci men Type: BLOOD SPECIMENOrdering Facility: [facility] Address: [address] [place] [address] Performed By: #### 5 7021-8 ####[facility] NESTORNEWPORT NEWSJUSTINE [id number] [address] MCH (RBC) [Entitic mass] 29.5 pg Normal 26.0-34.0 [facility] Comment on above: Order Comment: Speci men Type: BLOOD SPECIMENOrdering Facility: [facility] Address: [address] [place] [address] Performed By: #### 5 7021-8 ####[facility]PITALNCGUNNISON VALLEY HOSPITAL [id number] [place] [address] [place] MCHC (RBC) [Mass/Vol] 32.9 g/dL Normal 30.5-36.0 [facility] Comment on above: Order Comment: Speci men Type: BLOOD SPECIMENOrdering Facility: [facility] Address: [address] [place] [address] Performed By: #### 5 7021-8 ####[facility] [id number] [place] [address] [place] MCV (RBC) [Entitic vol] 89.5 fL Normal 80.0-100.0 [facility] Comment on above: Order Comment: Speci men Type: BLOOD SPECIMENOrdering Facility: [facility] Address: [address] [place] [address] Performed By: #### 5 7021-8 ####[facility] [id number] [place] [address] [place] Monocytes (Bld) [#/Vol] 0.82 10*3/uL Normal <0.87 [facility] Comment on above: Order Comment: Speci men Type: BLOOD SPECIMENOrdering Facility: [facility] Address: [address] [place] [address] Performed By: #### 5 7021-8 ####[facility] NESTORWJEROMELIA [id number] [place] [address] [place] Monocytes/100 WBC (Bld) 9.3 % Normal [facility] Comment on above: Order Comment: Speci men Type: BLOOD SPECIMENOrdering Facility: [facility] Address: [address] [place] [address] Performed By: #### 5 7021-8 ####[facility] HOSPITALELLIA [id number] [place] [address] [place] Neutrophils (Bld) [#/Vol] 5.76 10*3/uL Normal 1.45-7.50 [facility] Comment on above: Order Comment: Speci men Type: BLOOD SPECIMENOrdering Facility: [facility] Address: [address] [place] [address] Performed By: #### 5 7021-8 ####[facility] [id number] [place] [address] [place] Neutrophils/100 WBC (Bld) 65.5 % Normal [facility] Comment on above: Order Comment: Speci men Type: BLOOD SPECIMENOrdering Facility: [facility] Address: [address] [place] [address] Performed By: #### 5 7021-8 ####[facility] LIMARENNYA [id number] [place] [address] [place] Nucleated RBC (Bld) [#/Vol] 10*3/uL Normal <0.01 [facility] Comment on above: Order Comment: Speci men Type: BLOOD SPECIMENOrdering Facility: [facility] Address: [address] [place] [address] Performed By: #### 5 7021-8 ####[facility] HOSPITALNCLIA [id number] [place] [address] [place] Nucleated RBC/100 WBC (Bld) [Ratio] 0.0 /100 WBC Normal [facility] Comment on above: Order Comment: Speci men Type: BLOOD SPECIMENOrdering Facility: [facility] Address: [address] [place] [address] Performed By: #### 5 7021-8 ####[facility]PITALNCGUNNISON VALLEY HOSPITAL [id number] [place] [address] [place] Platelet mean volume (Bld) [Entitic vol] 8.7 fL Low 9.0-12.7 [facility] Comment on above: Order Comment: Speci men Type: BLOOD SPECIMENOrdering Facility: [facility] Address: [address] [place] [address] Performed By: #### 5 7021-8 ####[facility] [id number] [place] [address] [place] Platelets (Bld) [#/Vol] 273 10*3/uL Normal 150-400 [facility] Comment on above: Order Comment: Speci men Type: BLOOD SPECIMENOrdering Facility: [facility] Address: [address] [place] [address] Performed By: #### 5 7021-8 ####[facility] [id number] [place] [address] [place] RBC (Bld) [#/Vol] 3.73 10*6/uL Low 4.20-6.00 [facility] Comment on above: Order Comment: Speci men Type: BLOOD SPECIMENOrdering Facility: [facility] Address: [address] [place] [address] Performed By: #### 5 7021-8 ####[facility] [id number] [place] [address] [place] WBC (Bld) [#/Vol] 8.81 10*3/uL Normal 3.70-11.00 [facility] Comment on above: Order Comment: Speci men Type: BLOOD SPECIMENOrdering Facility: [facility] Address: [address] [place], [place] [address] Performed By: #### 5 7021-8 ####[facility] [id number] [place] [address] [place] CNOVon 01-31-2024 CNOV Normal [facility] metabolic 2000 panelon 01-31-2024 Albumin [Mass/Vol] 3.8 g/dL Low 3.9-4.9 [facility] Comment on above: Order Comment: Speci men Type: BLOOD SPECIMENOrdering Facility: [facility] Address: [address] [place] [address] Performed By: #### 2 4323-8 ####[facility] [id number] [place] [address] [place] ALP [Catalytic activity/Vol] 71 U/L Normal 38-113 [facility] Comment on above: Order Comment: Speci men Type: BLOOD SPECIMENOrdering Facility: [facility] Address: [address] [place] [address] Performed By: #### 2 4323-8 ####[facility] [id number] [place] [address] [place] ALT [Catalytic activity/Vol] 6 U/L Low 10-54 [facility] Comment on above: Order Comment: Speci men Type: BLOOD SPECIMENOrdering Facility: [facility] Address: [address] [place] [address] Performed By: #### 2 4323-8 ####[facility] [id number] [place] [address] [place] Anion gap [Moles/Vol] 8 mmol/L Low 9-18 [facility] Comment on above: Order Comment: Speci men Type: BLOOD SPECIMENOrdering Facility: [facility] Address: [address] [place] [address] Performed By: #### 2 4323-8 ####[facility] MILLTOWNCLIA [id number] [place] [address] [place] AST [Catalytic activity/Vol] 7 U/L Low 14-40 [facility] Comment on above: Order Comment: Speci men Type: BLOOD SPECIMENOrdering Facility: [facility] Address: [address] [place] [address] Performed By: #### 2 4323-8 ####[facility] MILLTOWNCLIA [id number] [place] [address] [place] Bilirubin [Mass/Vol] mg/dL Low 0.2-1.3 [facility] Comment on above: Order Comment: Speci men Type: BLOOD SPECIMENOrdering Facility: [facility] Address: [address] [place] [address] Performed By: #### 2 4323-8 ####[facility]ALAWNCL[facility] [id number] [place] [address] [place] Calcium [Mass/Vol] 9.4 mg/dL Normal 8.5-10.2 [facility] Comment on above: Order Comment: Speci men Type: BLOOD SPECIMENOrdering Facility: [facility] Address: [address] [place] [address] Performed By: #### 2 4323-8 ####[facility] MILLWNCLIA [id number] [place] [address] [place] Chloride [Moles/Vol] 103 mmol/L Normal 97-105 [facility] Comment on above: Order Comment: Speci men Type: BLOOD SPECIMENOrdering Facility: [facility] Address: [address] [place] [address] Performed By: #### 2 4323-8 ####[facility]ITALNCLIA [id number] [place] [address] [place] CO2 [Moles/Vol] 24 mmol/L Normal 22-30 [facility] Comment on above: Order Comment: Speci men Type: BLOOD SPECIMENOrdering Facility: [facility] Address: [address] [place] [address] Performed By: #### 2 4323-8 ####[facility] [id number] [place] [address] [place] Creatinine [Mass/Vol] 1.33 mg/dL High 0.73-1.22 [facility] Comment on above: Order Comment: Speci men Type: BLOOD SPECIMENOrdering Facility: [facility] Address: [address] [place] [address] Performed By: #### 2 4323-8 ####[facility] [id number] [address] Creatinine and Glomerular filtration rate.predicted panel (S/P/Bld) 56 mL/min/1.73m??? Low >=60 [facility] Comment on above: Order Comment: Speci men Type: BLOOD SPECIMENOrdering Facility: [facility] Address: [address] [place] [address] Result Comment: Kalani mated Glomerular Filtration Rate (eGFR) is calculated using the 2020 CKD-EPI creatinine equation. This equation utilizes serum creatinine, sex, and age as parameters. The creatinine assay has traceable calibration to isotope dilution-mass spectrometry. Refer to KDIGO guidelines for clinical interpretation. In patients with unstable renal function, e.g. those with acute kidney injury, the eGFR may not accurately reflect actual GFR. Performed By: #### 2 4323-8 ####[facility] [id number] [place] [address] [place] Glucose [Mass/Vol] 111 mg/dL High 74-99 [facility] Comment on above: Order Comment: Speci men Type: BLOOD SPECIMENOrdering Facility: [facility] Address: [address] [place] [address] Result Comment: The [place] [employer] (ADA) provides guidance for cutoff values for fasting glucose and random glucose. The ADA defines fasting as no caloric intake for at least 8 hours. Fasting plasma glucose results between 100 to 125 mg/dL indicate increased risk for diabetes (prediabetes).Fasting plasma glucose results greater than or equal to 126 mg/dL meet the criteria for diagnosis of diabetes. In the absence of unequivocal hyperglycemia, results should be confirmed by repeat testing. In a patient with classic symptoms of hyperglycemia or hyperglycemic crisis, random plasma glucose results greater than or equal to 200 mg/dL meet the criteria for diagnosis of diabetes.Reference: Standards of Medical Care in Diabetes 2016, [place] [employer] Association. Diabetes Care. 2016.39(Suppl 1). Performed By: #### 2 4323-8 ####[facility]OS[facility]ITALJEROMEShiloh [id number] [place] [address] [place] Potassium [Moles/Vol] 4.3 mmol/L Normal 3.7-5.1 [facility] Comment on above: Order Comment: Speci men Type: BLOOD SPECIMENOrdering Facility: [facility] Address: [address] [place] [address] Performed By: #### 2 4323-8 ####[facility] [id number] [place] [address] [place] Protein [Mass/Vol] 7.3 g/dL Normal 6.3-8.0 [facility] Comment on above: Order Comment: Speci men Type: BLOOD SPECIMENOrdering Facility: [facility] Address: [address] [place], [place] [address] Performed By: #### 2 4323-8 ####[facility] [id number] [place] [address] [place] Sodium [Moles/Vol] 135 mmol/L Low 136-144 [facility] Comment on above: Order Comment: Speci men Type: BLOOD SPECIMENOrdering Facility: [facility] Address: [address] [place], [place] [address] Performed By: #### 2 4323-8 ####[facility] [id number] [place] [address] [place] Urea nitrogen [Mass/Vol] 26 mg/dL High 9-24 [facility] Comment on above: Order Comment: Speci men Type: BLOOD SPECIMENOrdering Facility: [facility] Address: [address] [place] [address] Performed By: #### 2 4323-8 ####[facility]ITALNCLIA [id number] [place] [address] [place] CNPNon 01-10-2024 CNPN Normal [facility] CNNURSEon 01-04-2024 CNNURSE Normal [facility] CNPNon 01-04-2024 CNPN Normal [facility] CNOVon 01-03-2024 CNOV Normal [facility] CNOV Normal [facility] CNPNon 01-03-2024 CNPN Normal [facility] Hemoccult Stl Ql IAon 2023 Lower GI hemoglobin IA Ql (Stl) Negative Normal Negative [facility] Comment on above: Order Comment: Speci men Type: STOOL SPECIMENOrdering Facility: [facility] Address: [address] [place] [address] Performed By: #### 2 9771-3 ####[facility] LABCLIA [id number] [place] [address] [place] UA DIP, URINE (POC)on 2023 BILIRUBIN UA (POCT) Negative Negative [facility] CLARITY UA (POCT) Slightly Cloudy Cl [facility] COLOR UA (POCT) Light yellow [facility] GLUCOSE UA (POCT) Negative Negative mg/dL [facility] Hemoglobin Ql (U) Negative Negative [facility] KETONE UA (POCT) Negative Negative mg/dL [facility] LEUKOCYTES UA (POCT) Small Abnormal Negative [facility] NITRITE UA (POCT) Negative Negative [facility] PH UA (POCT) 5.5 4.5 - 8.0 [facility] Protein Ql (U) Negative Negative mg/dL [facility] SPECIFIC GRAVITY UA (POCT) 1.015 1.005 - 1.030 [facility] UROBILINOGEN UA (POCT) 0.2 E.U./dL Normal E.U./dL [facility] CNPNon 12-31-2023 CNPN Normal [facility] US KIDNEY/BLADDERon 12-31-19 US KIDNEY[facility]BLADDER [facility] Kidney - bilateral and Ur inary bladderon 12-31-2023 [facility] CNPNon 12-29-2023 CNPN Normal [facility] Bacteria Ur Culton Bacteria identified Cx Nom (U) ORGANISM ID: 1 >=100,000 CFU/ml Normal urogenital yolanda ORGANISM ID: 2 <10,000 CFU/ml Lactose negative gram negative bacilli Insignificant colony count. No further workup. Normal [facility] Comment on above: Performed By: #### 6 30-4 ####[facility] LABCLIA [id number] [place] [address] [place] CBC W Auto Differential pane l (Bld)on 12-28-2023 Basophils (Bld) [#/Vol] 0.13 10*3/uL High <0.11 [facility] Comment on above: Order Comment: Speci men Type: BLOOD SPECIMENOrdering Facility: [facility] Address: [address] [place] [address] Performed By: #### 1 4196-0, 11798-5 ####[facility] LABCLIA [id number] [place] [address] [place] Basophils/100 WBC (Bld) 1.4 % Normal [facility] Comment on above: Order Comment: Speci men Type: BLOOD SPECIMENOrdering Facility: [facility] Address: [address] [place] [address] Performed By: #### 1 4196-0, 50570-8 ####[facility] LABCLIA [id number] [address] [id number] [address] [place] Differential cell count method Nom (Bld) Auto Normal [facility] Comment on above: Order Comment: Speci men Type: BLOOD SPECIMENOrdering Facility: [facility] Address: [address] [place] [address] Performed By: #### 1 4196-0, 61600-2 ####[facility] LABCLIA [id number] [place] [address] [place] Eosinophils (Bld) [#/Vol] 0.47 10*3/uL High <0.46 [facility] Comment on above: Order Comment: Speci men Type: BLOOD SPECIMENOrdering Facility: [facility] Address: [address] [place] [address] Performed By: #### 1 4196-0, 68904-0 ####[facility] LABCLIA [id number] [place] [address] [place] Eosinophils/100 WBC (Bld) 5.1 % Normal [facility] Comment on above: Order Comment: Speci men Type: BLOOD SPECIMENOrdering Facility: [facility] Address: [address] [place] [address] Performed By: #### 1 4196-0, 43937-2 ####[facility] LABCLIA [id number] [place] [address] [place] Erythrocyte distribution width (RBC) [Ratio] 15.0 % Normal 11.5-15.0 [facility] Comment on above: Order Comment: Speci men Type: BLOOD SPECIMENOrdering Facility: [facility] Address: [address] [place] [address] Performed By: #### 1 4196-0, 05714-9 ####[facility] LABCLIA [id number] [place] [address] [place] Hematocrit (Bld) [Volume fraction] 33.5 % Low 39.0-51.0 [facility] Comment on above: Order Comment: Speci men Type: BLOOD SPECIMENOrdering Facility: [facility] Address: [address] [place] [address] Performed By: #### 1 4196-0, 93133-8 ####[facility] LABCLIA [id number] [place] [address] [place] Hemoglobin (Bld) [Mass/Vol] 10.5 g/dL Low 13.0-17.0 [facility] Comment on above: Order Comment: Speci men Type: BLOOD SPECIMENOrdering Facility: [facility] Address: [address] [place] [address] Performed By: #### 1 4196-0, 92620-4 ####[facility] LABCLIA [id number] [place] [address] [place] Immature granulocytes (Bld) [#/Vol] 0.05 10*3/uL Normal <0.10 [facility] Comment on above: Order Comment: Speci men Type: BLOOD SPECIMENOrdering Facility: [facility] Address: [address] [place] [address] Performed By: #### 1 4196-0, 62360-1 ####[facility] LABCLIA [id number] [place] [address] [place] Immature granulocytes/100 WBC (Bld) 0.5 % Normal [facility] Comment on above: Order Comment: Speci men Type: BLOOD SPECIMENOrdering Facility: [facility] Address: [address] [place] [address] Performed By: #### 1 4196-0, 62310-7 ####[facility] LABCLIA [id number] [place] [address] [place] Lymphocytes (Bld) [#/Vol] 1.48 10*3/uL Normal 1.00-4.00 [facility] Comment on above: Order Comment: Speci men Type: BLOOD SPECIMENOrdering Facility: [facility] Address: [address] [place] [address] Performed By: #### 1 4196-0, 45145-7 ####[facility] LABIA [id number] [place] [address] [place] Lymphocytes/100 WBC (Bld) 16.2 % Normal [facility] Comment on above: Order Comment: Speci men Type: BLOOD SPECIMENOrdering Facility: [facility] Address: [address] [place] [address] Performed By: #### 1 4196-0, 38138-7 ####[facility] LABIA [id number] [place] [address] [place] MCH (RBC) [Entitic mass] 29.6 pg Normal 26.0-34.0 [facility] Comment on above: Order Comment: Speci men Type: BLOOD SPECIMENOrdering Facility: [facility] Address: [address] [place] [address] Performed By: #### 1 4196-0, 83774-4 ####[facility] [id number] [place] [address] [place] MCHC (RBC) [Mass/Vol] 31.3 g/dL Normal 30.5-36.0 [facility] Comment on above: Order Comment: Speci men Type: BLOOD SPECIMENOrdering Facility: [facility] Address: [address] [place] [address] Performed By: #### 1 4196-0, 00690-5 ####[facility] LABIA [id number] [place] [address] [place] MCV (RBC) [Entitic vol] 94.4 fL Normal 80.0-100.0 [facility] Comment on above: Order Comment: Speci men Type: BLOOD SPECIMENOrdering Facility: [facility] Address: [address] [place] [address] Performed By: #### 1 4196-0, 27879-0 ####[facility] LABIA [id number] [place] [address] [place] Monocytes (Bld) [#/Vol] 0.84 10*3/uL Normal <0.87 [facility] Comment on above: Order Comment: Speci men Type: BLOOD SPECIMENOrdering Facility: [facility] Address: [address] [place] [address] Performed By: #### 1 4196-0, 11696-3 ####[facility] LABCLIA [id number] [place] [address] [place] Monocytes/100 WBC (Bld) 9.2 % Normal [facility] Comment on above: Order Comment: Speci men Type: BLOOD SPECIMENOrdering Facility: [facility] Address: [address] [place] [address] Performed By: #### 1 4196-0, 32901-1 ####[facility] LABCLIA [id number] [place] [address] [place] Neutrophils (Bld) [#/Vol] 6.16 10*3/uL Normal 1.45-7.50 [facility] Comment on above: Order Comment: Speci men Type: BLOOD SPECIMENOrdering Facility: [facility] Address: [address] [place] [address] Performed By: #### 1 4196-0, 45372-2 ####[facility] LABCLIA [id number] [place] [address] [place] Neutrophils/100 WBC (Bld) 67.6 % Normal [facility] Comment on above: Order Comment: Speci men Type: BLOOD SPECIMENOrdering Facility: [facility] Address: [address] [place] [address] Performed By: #### 1 4196-0, 12567-0 ####[facility] LABCLIA [id number] [place] [address] [place] Nucleated RBC (Bld) [#/Vol] 10*3/uL Normal <0.01 [facility] Comment on above: Order Comment: Speci men Type: BLOOD SPECIMENOrdering Facility: [facility] Address: [address] [place] [address] Performed By: #### 1 4196-0, 24888-3 ####[facility] LABIA [id number] [place] [address] [place] Nucleated RBC/100 WBC (Bld) [Ratio] 0.0 /100 WBC Normal [facility] Comment on above: Order Comment: Speci men Type: BLOOD SPECIMENOrdering Facility: [facility] Address: [address] [place] [address] Performed By: #### 1 4196-0, 04181-7 ####[facility] LABIA [id number] [place] [address] [place] Platelet mean volume (Bld) [Entitic vol] 9.8 fL Normal 9.0-12.7 [facility] Comment on above: Order Comment: Speci men Type: BLOOD SPECIMENOrdering Facility: [facility] Address: [address] [place] [address] Performed By: #### 1 4196-0, 42565-8 ####[facility] LABIA [id number] [place] [address] [place] Platelets (Bld) [#/Vol] 367 10*3/uL Normal 150-400 [facility] Comment on above: Order Comment: Speci men Type: BLOOD SPECIMENOrdering Facility: [facility] Address: [address] [place] [address] Performed By: #### 1 4196-0, 45494-9 ####[facility] LABIA [id number] [place] [address] [place] RBC (Bld) [#/Vol] 3.55 10*6/uL Low 4.20-6.00 [facility] Comment on above: Order Comment: Speci men Type: BLOOD SPECIMENOrdering Facility: [facility] Address: [address] [place] [address] Performed By: #### 1 4196-0, 99398-6 ####[facility] LABCLIA [id number] [place] [address] [place] WBC (Bld) [#/Vol] 9.13 10*3/uL Normal 3.70-11.00 [facility] Comment on above: Order Comment: Speci men Type: BLOOD SPECIMENOrdering Facility: [facility] Address: [address] [place] [address] Performed By: #### 1 4196-0, 15100-7 ####[facility] LABCLIA [id number] [place] [address] [place] CNOVon 12-28-2023 CNOV Normal [facility] Comprehensive metabolic 2000 panelon 12-28-2023 Albumin [Mass/Vol] 3.8 g/dL Low 3.9-4.9 [facility] Comment on above: Order Comment: Speci men Type: BLOOD SPECIMENOrdering Facility: [facility] Address: [address] [place] [address] Performed By: #### 2 4323-8, 45365-2, 6-4 ####[facility] LABCLIA [id number] [place] [address] [place] ALP [Catalytic activity/Vol] 58 U/L Normal 38-113 [facility] Comment on above: Order Comment: Speci men Type: BLOOD SPECIMENOrdering Facility: [facility] Address: [address] [place] [address] Performed By: #### 2 4323-8, 84297-0, 6-4 ####[facility] LABCLIA [id number] [place] [address] [place] ALT [Catalytic activity/Vol] 8 U/L Low 10-54 [facility] Comment on above: Order Comment: Speci men Type: BLOOD SPECIMENOrdering Facility: [facility] Address: [address] [place], [place] [address] Performed By: #### 2 4323-8, 64480-8, 2275-4 ####[facility] LABCLIA [id number] [address] [address] [place] Anion gap [Moles/Vol] 10 mmol/L Normal 9-18 [facility] Comment on above: Order Comment: Speci men Type: BLOOD SPECIMENOrdering Facility: [facility] Address: [address] [place] [address] Performed By: #### 2 4323-8, 02589-5, 2275-4 ####[facility] LABCLIA [id number] [place] [address] [place] AST [Catalytic activity/Vol] 10 U/L Low 14-40 [facility] Comment on above: Order Comment: Speci men Type: BLOOD SPECIMENOrdering Facility: [facility] Address: [address] [place] [address] Performed By: #### 2 4323-8, 08406-4, 2275-4 ####[facility] LABIA [id number] [place] [address] [place] Bilirubin [Mass/Vol] mg/dL Low 0.2-1.3 [facility] Comment on above: Order Comment: Speci men Type: BLOOD SPECIMENOrdering Facility: [facility] Address: [address] [place] [address] Performed By: #### 2 4323-8, 19501-5, 2275-4 ####[facility] LABIA [id number] [place] [id number] [place] Calcium [Mass/Vol] 9.0 mg/dL Normal 8.5-10.2 [facility] Comment on above: Order Comment: Speci men Type: BLOOD SPECIMENOrdering Facility: [facility] Address: [address] [place] [address] Performed By: #### 2 4323-8, 39727-8, 6-4 ####[facility] LABCLIA [id number] [address] [address] [place] Chloride [Moles/Vol] 103 mmol/L Normal 97-105 [facility] Comment on above: Order Comment: Speci men Type: BLOOD SPECIMENOrdering Facility: [facility] Address: [address] [place] [address] Performed By: #### 2 4323-8, 81435-6, 6-4 ####[facility] LABIA [id number] [place] [address] [place] CO2 [Moles/Vol] 22 mmol/L Normal 22-30 [facility] Comment on above: Order Comment: Speci men Type: BLOOD SPECIMENOrdering Facility: [facility] Address: [address] [place] [address] Performed By: #### 2 4323-8, 33252-2, 6-4 ####[facility] LABIA [id number] [place] [address] [place] Creatinine [Mass/Vol] 1.82 mg/dL High 0.73-1.22 [facility] Comment on above: Order Comment: Speci men Type: BLOOD SPECIMENOrdering Facility: [facility] Address: [address] [place] [address] Performed By: #### 2 4323-8, 67018-8, 6-4 ####[facility] LABIA [id number] [place] [id number] [place] Creatinine and Glomerular filtration rate.predicted panel (S/P/Bld) 38 mL/min/1.73m??? Low >=60 [facility] Comment on above: Order Comment: Speci men Type: BLOOD SPECIMENOrdering Facility: [facility] Address: [address] [place] [address] Result Comment: Kalani mated Glomerular Filtration Rate (eGFR) is calculated using the 2020 CKD-EPI creatinine equation. This equation utilizes serum creatinine, sex, and age as parameters. The creatinine assay has traceable calibration to isotope dilution-mass spectrometry. Refer to KDIGO guidelines for clinical interpretation. In patients with unstable renal function, e.g. those with acute kidney injury, the eGFR may not accurately reflect actual GFR. Performed By: #### 2 4323-8, 33877-9, 2275-4 ####[facility] LABCLIA [id number] [place] [id number] [place] Glucose [Mass/Vol] 99 mg/dL Normal 74-99 [facility] Comment on above: Order Comment: Fernanda franks Type: BLOOD SPECIMENOrdering Facility: [facility] Address: [address] [place] [address] Result Comment: The [place] Diabetes Association (ADA) provides guidance for cutoff values for fasting glucose and random glucose. The ADA defines fasting as no caloric intake for at least 8 hours. Fasting plasma glucose results between 100 to 125 mg/dL indicate increased risk for diabetes (prediabetes).Fasting plasma glucose results greater than or equal to 126 mg/dL meet the criteria for diagnosis of diabetes. In the absence of unequivocal hyperglycemia, results should be confirmed by repeat testing. In a patient with classic symptoms of hyperglycemia or hyperglycemic crisis, random plasma glucose results greater than or equal to 200 mg/dL meet the criteria for diagnosis of diabetes.Reference: Standards of Medical Care in Diabetes 2016, [place] [employer]. Diabetes Care. 2016.39(Suppl 1). Performed By: #### 2 4323-8, 25202-6, 2275-4 ####[facility] LABCLIA [id number] [address] [address] [place] Potassium [Moles/Vol] 4.7 mmol/L Normal 3.7-5.1 [facility] Comment on above: Order Comment: Fernanda franks Type: BLOOD SPECIMENOrdering Facility: [facility] Address: [address] [place] [address] Performed By: #### 2 4323-8, 14021-1, 2275-4 ####[facility] LABCLIA [id number] [place] [address] [place] Protein [Mass/Vol] 7.6 g/dL Normal 6.3-8.0 [facility] Comment on above: Order Comment: Speci men Type: BLOOD SPECIMENOrdering Facility: [facility] Address: [address] [place] [address] Performed By: #### 2 4323-8, 79416-7, 2276-4 ####[facility] LABCLIA [id number] [place] [address] [place] Sodium [Moles/Vol] 135 mmol/L Low 136-144 [facility] Comment on above: Order Comment: Speci men Type: BLOOD SPECIMENOrdering Facility: [facility] Address: [address] [place] [address] Performed By: #### 2 4323-8, 03804-3, 2276-4 ####[facility] LABCLIA [id number] [place] [address] [place] Urea nitrogen [Mass/Vol] 28 mg/dL High 9-24 [facility] Comment on above: Order Comment: Speci men Type: BLOOD SPECIMENOrdering Facility: [facility] Address: [address] [place] [address] Performed By: #### 2 4323-8, 58691-0, 2276-4 ####[facility] LABCLIA [id number] [place] [id number] [place] Ferritin SerPl-mCncon 2023 Ferritin [Mass/Vol] 154.0 ng/mL Normal 30.3-565.7 [facility] Comment on above: Order Comment: Speci men Type: BLOOD SPECIMENOrdering Facility: [facility] Address: [address] [place] [address] Performed By: #### 2 4323-8, 23055-4, 2276-4 ####[facility] LABCLIA [id number] [place] [id number] [place] Folate SerPl-mCncon 12-28-19 Folate [Mass/Vol] 14.5 ng/mL Normal >4.7 [facility] Comment on above: Order Comment: Speci men Type: BLOOD SPECIMENOrdering Facility: [facility] Address: [address] [place] [address] Performed By: #### 2 132-9, 2284-8 ####[facility] LABIA [id number] [place] [id number] [place] HISTORY PHYSICALon HISTORY PHYSICAL Normal [facility] Iron and Iron binding capaci ty panelon 12-28-2023 Iron [Mass/Vol] 23 ug/dL Low 41-186 [facility] Comment on above: Order Comment: Speci men Type: BLOOD SPECIMENOrdering Facility: [facility] Address: [address] [place] [address] Performed By: #### 2 4323-8, 56923-3, 2276-4 ####[facility] LABIA [id number] [place] [address] [place] Iron binding capacity [Mass/Vol] 198 ug/dL Low 232-386 [facility] Comment on above: Order Comment: Speci men Type: BLOOD SPECIMENOrdering Facility: [facility] Address: [address] [place] [address] Performed By: #### 2 4323-8, 23990-0, 2276-4 ####[facility] LABIA [id number] [place] [id number] [place] Iron/TIBC [Molar ratio] 11.6 % Low 15.0-57.0 [facility] Comment on above: Order Comment: Speci men Type: BLOOD SPECIMENOrdering Facility: [facility] Address: [address] [place] [address] Performed By: #### 2 4323-8, 41511-5, 2276-4 ####[facility] LABCLIA [id number] [place] [address] [place] Retics #on 12-28-2023 Reticulocytes (Bld) [#/Vol] 0.40264 10*3/uL Normal 0.018-0.100 [facility] Comment on above: Order Comment: Speci men Type: BLOOD SPECIMENOrdering Facility: [facility] Address: [address] [place] [address] Performed By: #### 1 4196-0, 86299-8 ####[facility] LABCLIA [id number] [place] [address] [place] Reticulocytes (Bld) [#/Vol]o n 12-28-2023 Reticulocytes/100 RBC (Bld) 0.8 % Normal 0.4-2.0 [facility] Comment on above: Order Comment: Speci men Type: BLOOD SPECIMENOrdering Facility: [facility] Address: [address] [place] [address] Performed By: #### 1 4196-0, 43212-7 ####[facility] LABIA [id number] [place] [address] [place] Urinalysis complete panel (U )on 12-28-2023 BACTERIA UL 2358.0 uL High Negative [facility] Comment on above: Order Comment: Speci men Type: URINE SPECIMENOrdering Facility: [facility] Address: [address] [place] [address] Performed By: #### 2 4356-8 ####[facility] LABIA [id number] [place] [address] [place] Bilirubin Ql (U) Negative Normal Negative [facility] Comment on above: Order Comment: Speci men Type: URINE SPECIMENOrdering Facility: [facility] Address: [address] [place] [address] Performed By: #### 2 4356-8 ####[facility] LABCLIA [id number] [place] [address] [place] Clarity (Unsp spec) Clear Normal Clear [facility] Comment on above: Order Comment: Speci men Type: URINE SPECIMENOrdering Facility: [facility] Address: [address] [place] [address] Performed By: #### 2 4356-8 ####[facility] LABCLIA [id number] [place] [address] [place] Color (U) Yellow Normal Yellow [facility] Comment on above: Order Comment: Speci men Type: URINE SPECIMENOrdering Facility: [facility] Address: [address] [place] [address] Performed By: #### 2 4356-8 ####[facility] LABCLIA [id number] [place] [address] [place] Epithelial cells LM.HPF (Urine sed) [#/Area] None Seen Normal [facility] Comment on above: Order Comment: Speci men Type: URINE SPECIMENOrdering Facility: [facility] Address: [address] [place] [address] Performed By: #### 2 4356-8 ####[facility] LABCLIA [id number] [place] [address] [place] Glucose Test strip (U) [Mass/Vol] Negative Normal Negative [facility] Comment on above: Order Comment: Speci men Type: URINE SPECIMENOrdering Facility: [facility] Address: [address] [place] [address] Performed By: #### 2 4356-8 ####[facility] LABCLIA [id number] [place] [address] [place] Hemoglobin Ql (U) 1+ Abnormal Negative [facility] Comment on above: Order Comment: Speci men Type: URINE SPECIMENOrdering Facility: [facility] Address: [address] [place] [address] Performed By: #### 2 4356-8 ####[facility] LABCLIA [id number] [place] [address] [place] Hyaline casts (Urine sed) [#/Area] 1-3 /LPF Abnormal 0 /LPF [facility] Comment on above: Order Comment: Speci men Type: URINE SPECIMENOrdering Facility: [facility] Address: [address] [place] [address] Performed By: #### 2 4356-8 ####[facility] LABCLIA [id number] [place] [address] [place] Ketones Ql (U) Negative Normal Negative [facility] Comment on above: Order Comment: Speci men Type: URINE SPECIMENOrdering Facility: [facility] Address: [address] [place] [address] Performed By: #### 2 4356-8 ####[facility] LABCLIA [id number] [place] [address] [place] Leukocyte esterase Test strip Ql (U) 3+ Abnormal Negative [facility] Comment on above: Order Comment: Speci men Type: URINE SPECIMENOrdering Facility: [facility] Address: [address] [place] [address] Performed By: #### 2 4356-8 ####[facility] LABCLIA [id number] [place] [address] [place] Nitrite Ql (U) Negative Normal Negative [facility] Comment on above: Order Comment: Speci men Type: URINE SPECIMENOrdering Facility: [facility] Address: [address] [place] [address] Performed By: #### 2 4356-8 ####[facility] LABCLIA [id number] [place] [address] [place] pH (U) 6.0 [pH] Normal <8.5 [facility] Comment on above: Order Comment: Speci men Type: URINE SPECIMENOrdering Facility: [facility] Address: [address] [place] [address] Performed By: #### 2 4356-8 ####[facility] LABCLIA [id number] [place] [address] [place] Protein (U) [Mass/Vol] Negative Normal Negative [facility] Comment on above: Order Comment: Speci men Type: URINE SPECIMENOrdering Facility: [facility] Address: [address] [place] [address] Performed By: #### 2 4356-8 ####[facility] LABIA [id number] [place] [address] [place] RBC LM.HPF (Urine sed) [#/Area] 6-10 /HPF Abnormal 0-2 /HPF [facility] Comment on above: Order Comment: Speci men Type: URINE SPECIMENOrdering Facility: [facility] Address: [address] [place] [address] Performed By: #### 2 4356-8 ####[facility] LABIA [id number] [place] [address] [place] Specific gravity (U) [Rel density] 1.013 Normal 1.005-1.030 [facility] Comment on above: Order Comment: Speci men Type: URINE SPECIMENOrdering Facility: [facility] Address: [address] [place] [address] Performed By: #### 2 4356-8 ####[facility] LABCLIA [id number] [place] [address] [place] Urobilinogen Ql (U) 0.2 EU/dL Normal 0.2-1.0 EU/dL [facility] Comment on above: Order Comment: Speci men Type: URINE SPECIMENOrdering Facility: [facility] Address: [address] [place] [address] Performed By: #### 2 4356-8 ####[facility] LABCLIA [id number] [place] [id number] [place] WBC LM.HPF (Urine sed) [#/Area] /[HPF] Abnormal 0-5 /HPF [facility] Comment on above: Order Comment: Speci men Type: URINE SPECIMENOrdering Facility: [facility] Address: [address] [place] [address] Performed By: #### 2 4356-8 ####[facility] LABCLIA [id number] [place] [id number] [place] Vit B12 SerPl-mCncon 024 Cobalamin (Vitamin B12) [Mass/Vol] 334 pg/mL Normal 232-1245 [facility] Comment on above: Order Comment: Speci men Type: BLOOD SPECIMENOrdering Facility: [facility] Address: [address] [place] [address] Performed By: #### 2 132-9, 2284-8 ####[facility] LABCLIA [id number] [place] [id number] [place] Basic metabolic 2000 panelon 12-27-2023 Anion gap [Moles/Vol] 7 mmol/L Normal 5-16 [facility] Comment on above: Order Comment: Speci men Type: BLOOD SPECIMENOrdering Facility: [facility] Address: [address] [place] [address] Performed By: #### 2 4321-2, 62130-2, 3034-6 ####[facility] LABORATORYCLIA [id number] [place] [address] [place]#### 71951-7 ####[facility] LABCLIA [id number] [place] [id number] [place] Calcium [Mass/Vol] 9.6 mg/dL Normal 8.5-10.5 [facility] Comment on above: Order Comment: Speci men Type: BLOOD SPECIMENOrdering Facility: [facility] Address: [address] [place] [address] Performed By: #### 2 4321-2, 32846-5, 3033-6 ####[facility] LABORATORYCLIA [id number] [place] [address] [place]#### 59600-0 ####[facility] LABCLIA [id number] [address] [address] [place] Chloride [Moles/Vol] 111 mmol/L High 98-107 [facility] Comment on above: Order Comment: Speci men Type: BLOOD SPECIMENOrdering Facility: [facility] Address: [address] [place] [address] Performed By: #### 2 4321-2, 63464-9, 3034-04 ####[facility] LABORATORYCLIA [id number] [place] [address] [place]#### 78300-3 ####[facility] LABCLIA [id number] [place] [address] [place] CO2 [Moles/Vol] 22 mmol/L Normal 21-32 [facility] Comment on above: Order Comment: Speci men Type: BLOOD SPECIMENOrdering Facility: [facility] Address: [address] [place] [address] Performed By: #### 2 4321-2, 44921-2, 6 ####[facility] LABORATORYCLIA [id number] [place] [address] [place]#### 77763-6 ####[facility] LABCLIA [id number] [place] [id number] [place] Creatinine [Mass/Vol] 1.88 mg/dL High 0.50-1.40 [facility] Comment on above: Order Comment: Speci men Type: BLOOD SPECIMENOrdering Facility: [facility] Address: [address] [place] [address] Result Comment: Nenita ents receiving either N-Acetylcysteine (NAC) or Metamizole prior to venipuncture, may have falsely depressed results. Performed By: #### 2 4321-2, 95294-1, 3034-6 ####[facility] LABORATORYCLIA [id number] [address]#### 13978-0 ####[facility] LABCLIA [id number] [address] Creatinine and Glomerular filtration rate.predicted panel (S/P/Bld) 37 mL/min/1.73m??? Low >=60 [facility] Comment on above: Order Comment: Speci men Type: BLOOD SPECIMENOrdering Facility: [facility] Address: [address] [place] [address] Result Comment: Kalani mated Glomerular Filtration Rate (eGFR) is calculated using the 2020 CKD-EPI creatinine equation. This equation utilizes serum creatinine, sex, and age as parameters. The creatinine assay has traceable calibration to isotope dilution-mass spectrometry. Refer to KDIGO guidelines for clinical interpretation. In patients with unstable renal function, e.g. those with acute kidney injury, the eGFR may not accurately reflect actual GFR. Performed By: #### 2 4321-2, 79963-2, 3034-6 ####[facility] LABORATORYCLIA [id number] [address] [place] [facility]#### 24482-7 ####[facility] LABIA [id number] [place] [address] [place] Glucose [Mass/Vol] 94 mg/dL Normal 70-100 [facility] Comment on above: Order Comment: Speci men Type: BLOOD SPECIMENOrdering Facility: [facility] Address: [address] [place] [id number] Result Comment: The [place] Diabetes Association (ADA) provides guidance for cutoff values for fasting glucose and random glucose. The ADA defines fasting as no caloric intake for at least 8 hours. Fasting plasma glucose results between 100 to 125 mg/dL indicate increased risk for diabetes (prediabetes). Fasting plasma glucose results greater than or equal to 126 mg/dL meet the criteria for diagnosis of diabetes. In the absence of unequivocal hyperglycemia, results should be confirmed by repeat testing. In a patient with classic symptoms of hyperglycemia or hyperglycemic crisis, random plasma glucose results greater than or equal to 200 mg/dL meet the criteria for diagnosis of diabetes. Reference: Standards of Medical Care in Diabetes 2016, [place] Diabetes Association. Diabetes Care. 2016.39(Suppl 1). Results may be falsely elevated after the administration of Sulfapyridine. Results may be falsely depressed after the administration of Sulfasalazine. Performed By: #### 2 4321-2, 55383-0, 3034-04 ####[facility] LABORATORYCLIA [id number] [place] [address] [place]#### 94914-3 ####[facility] LABCLIA [id number] [place] [address] [place] Potassium [Moles/Vol] 5.1 mmol/L Normal 3.5-5.1 [facility] Comment on above: Order Comment: Speci men Type: BLOOD SPECIMENOrdering Facility: [facility] Address: [address] [place] [address] Performed By: #### 2 4321-2, 63846-5, 3034-04 ####[facility] LABORATORYCLIA [id number] [place] [address] [place]#### 79331-2 ####[facility] LABCLIA [id number] [place] [address] [place] Sodium [Moles/Vol] 140 mmol/L Normal 136-145 [facility] Comment on above: Order Comment: Speci men Type: BLOOD SPECIMENOrdering Facility: [facility] Address: [address] [place] [address] Performed By: #### 2 4321-2, 29995-4, 6 ####[facility] LABORATORYCLIA [id number] [place] [address] [place]#### 38299-4 ####[facility] LABCLIA [id number] [place] [address] [place] Urea nitrogen [Mass/Vol] 34 mg/dL High - [facility] Comment on above: Order Comment: Speci men Type: BLOOD SPECIMENOrdering Facility: [facility] Address: [address] [place] [address] Performed By: #### 2 4321-2, 01726-5, 3034-6 ####[facility] LABORATORYCLIA [id number] [place] [address] [place]#### 42403-2 ####[facility] LABCLIA [id number] [place] [address] [place] CBC panel Auto (Bld)on 12-27 Erythrocyte distribution width (RBC) [Ratio] 15.0 % Normal 11.5-15.0 [facility] Comment on above: Order Comment: Speci men Type: BLOOD SPECIMEN Ordering Facility: [facility] Address: [address] [place] [address] Performed By: #### 5 8410-2 #### [facility] CLIA [id number] [address] [place] [address] [place] #### 07899-1 #### [facility] LAB CLIA [id number] [address] [place] [address] [place] Hematocrit (Bld) [Volume fraction] 33.3 % Low 39.0-51.0 [facility] Comment on above: Order Comment: Speci men Type: BLOOD SPECIMEN Ordering Facility: [facility] Address: [address] [place] [address] Performed By: #### 5 8410-2 #### [facility] CLIA [id number] [address] [place] [address] [place] #### 04416-2 #### [facility] CLIA [id number] [address] [place] [address] [place] Hemoglobin (Bld) [Mass/Vol] 10.8 g/dL Low 13.0-17.0 [facility] Comment on above: Order Comment: Speci men Type: BLOOD SPECIMEN Ordering Facility: [facility] Address: [address] [place] [address] Performed By: #### 5 8410-2 #### [facility] CLIA [id number] [address] [place] [address] [place] #### 43314-5 #### [facility] CLIA [id number] [address] [place] [address] [place] MCH (RBC) [Entitic mass] 29.0 pg Normal 26.0-34.0 [facility] Comment on above: Order Comment: Speci men Type: BLOOD SPECIMEN Ordering Facility: [facility] Address: [address] [place] [address] Performed By: #### 5 8410-2 #### [facility] CLIA [id number] [address] [place] [address] [place] #### 10651-8 #### [facility] CLIA [id number] [address] [place] [address] [place] MCHC (RBC) [Mass/Vol] 32.4 g/dL Normal 30.5-36.0 [facility] Comment on above: Order Comment: Speci men Type: BLOOD SPECIMEN Ordering Facility: [facility] Address: [address] [place] [address] Performed By: #### 5 8410-2 #### [facility] CLIA [id number] [address] [place] [address] [place] #### 31784-5 #### [facility] CLIA [id number] [address] [place] [address] [place] MCV (RBC) [Entitic vol] 89.5 fL Normal 80.0-100.0 [facility] Comment on above: Order Comment: Speci men Type: BLOOD SPECIMEN Ordering Facility: [facility] Address: [address] [place] [address] Performed By: #### 5 8410-2 #### [facility] CLIA [id number] [address] [place] [address] [place] #### 08723-4 #### [facility] CLIA [id number] [address] [place] [address] [place] Nucleated RBC (Bld) [#/Vol] 10*3/uL Normal <0.01 [facility] Comment on above: Order Comment: Speci men Type: BLOOD SPECIMEN Ordering Facility: [facility] Address: [address] [place] [address] Performed By: #### 5 8410-2 #### [facility] CLIA [id number] [address] [place] [address] [place] #### 82683-7 #### [facility] CLIA [id number] [address] [place] [address] [place] Platelet mean volume (Bld) [Entitic vol] 9.2 fL Normal 9.0-12.7 [facility] Comment on above: Order Comment: Speci men Type: BLOOD SPECIMEN Ordering Facility: [facility] Address: [address] [place] [address] Performed By: #### 5 8410-2 #### [facility] CLIA [id number] [address] [place] [address] [place] #### 39045-0 #### [facility] CLIA [id number] [address] [place] [address] [place] Platelets (Bld) [#/Vol] 352 10*3/uL Normal 150-400 [facility] Comment on above: Order Comment: Speci men Type: BLOOD SPECIMEN Ordering Facility: [facility] Address: [address] [place] [address] Performed By: #### 5 8410-2 #### [facility] CLIA [id number] [address] [place] [address] [place] #### 82835-5 #### [facility] CLIA [id number] [address] [place] [address] [place] RBC (Bld) [#/Vol] 3.72 10*6/uL Low 4.20-6.00 [facility] Comment on above: Order Comment: Speci men Type: BLOOD SPECIMEN Ordering Facility: [facility] Address: [address] [place] [address] Performed By: #### 5 8410-2 #### [facility] CLIA [id number] [address] [place] [address] [place] #### 03977-3 #### [facility] CLIA [id number] [address] [place] [address] [place] WBC (Bld) [#/Vol] 9.51 10*3/uL Normal 3.70-11.00 [facility] Comment on above: Order Comment: Speci men Type: BLOOD SPECIMEN Ordering Facility: [facility] Address: [address] [place] [address] Performed By: #### 5 8410-2 #### [facility] CLIA [id number] [address] [place] [address] [place] #### 80636-0 #### [facility] CLIA [id number] [address] [place] [address] [place] CNCOon 12-27-2023 CNCO Letter Text Normal [facility] CNPNon 12-27-2023 CNPN Normal [facility] HbA1c (Bld)on 12-27-2023 Average glucose Estimated from glycated hemoglobin (Bld) [Mass/Vol] 114 mg/dL Normal [facility] Comment on above: Order Comment: Speci men Type: BLOOD SPECIMENOrdering Facility: [facility] Address: [address] [place] [address] Result Comment: eAG: (Estimated average glucose) is a calculated value from HgbA1c and is patient representative of the average blood glucose level in the last 2-3 month period. Performed By: #### 5 8410-2 ####[facility] LABORATORYCLIA [id number] [place] [address] [place]#### 08688-9 ####[facility] LABCLIA [id number] [place] [address] [place] HbA1c (Bld) [Mass fraction] 5.6 % Normal 4.3-5.6 [facility] Comment on above: Order Comment: Speci men Type: BLOOD SPECIMENOrdering Facility: [facility] Address: [address] [place] [address] Result Comment: [place] Diabetes Association guidelines indicate that patients with HgbA1c in the range 5.7-6.4% are at increased risk for development of diabetes, and intervention by lifestyle modification may be beneficial. HgbA1c greater or equal to 6.5% is considered diagnostic of diabetes. Performed By: #### 5 8410-2 ####[facility] LABORATORYCLIA [id number] [place] [address] [place]#### 65054-2 ####[facility] LABCLIA [id number] [address] [place] NT-proBNP [facility] 12-27 Natriuretic peptide.B prohormone N-Terminal [Mass/Vol] 149 pg/mL High <125 [facility] Comment on above: Order Comment: Speci men Type: BLOOD SPECIMENOrdering Facility: [facility] Address: [address] [place] [address] Performed By: #### 2 4321-2, 86218-1, 3034-6 ####[facility] LABORATORYCLIA [id number] [place] [address] [place]#### 50995-7 ####[facility] LABCLIA [id number] [place] [address] [place] Prealb SerPl-mCncon 12-27-19 24 Prealbumin [Mass/Vol] 16 mg/dL Low 20-40 [facility] Comment on above: Order Comment: Speci men Type: BLOOD SPECIMENOrdering Facility: [facility] Address: [address] [place] [address] Performed By: #### 2 4321-2, 98109-5, 3033-6 ####[facility] LABORATORYCLIA [id number] [place] [address] [place]#### 74702-3 ####[facility] LABCLIA [id number] [place] [address] [place] STAPH AUREUS PCRon 4 S. aureus and MRSA panel CORIN+probe (Nose) Normal Negative [facility] Comment on above: Order Comment: Speci men Type: SWAB OF INTERNAL NOSEOrdering Facility: [facility] Address: [address] [place] [address] Result Comment: Nega tive for Staphylococcus aureus by PCR. Negative for MRSA by PCR Performed By: #### S APCR ####[facility] LABORATORYCLIA [id number] [place] [address] [place] Transferrin SerPl-mCncon Transferrin [Mass/Vol] 164 mg/dL Low 180-329 [facility] Comment on above: Order Comment: Speci men Type: BLOOD SPECIMENOrdering Facility: [facility] Address: [address] [place] [address] Performed By: #### 2 4321-2, 98723-1, 6 ####[facility] LABORATORYCLIA [id number] [place] [address] [place]#### 78831-4 ####[facility] LABCLIA [id number] [place] [address] [place] CNOVon 12-20-2023 [facility] MIROSLAVA PERALTA ([id number]) 1950 [address]* Date Time Provider Department 12/20/23 3:00 PM REMY LEMUS [facility] During your visit today, we recorded the following information about you: Pulse Blood pressure Weight Height 89/minute 137/66 96.2 kg 1.803 m [place], IMMANUEL 12/20/2023 3:04 PM Signed Patient is a 73 year old male here for follow up CT results prior to surgery. Patient complaining of constant vertigo . Complains of generalized pain and more pain in upper extremities from using walker for mobility. Per patient he will be having surgery on his neck. Patient has no further questions or concerns. Remy Lemus MD 12/20/2023 6:39 PM Signed Remy Lemus MD [facility] Orthopaedic Surgery - Orthopaedic Spine Surgeon [address], [address], [place] [address] Phone: [phone] ([phone] FAX: [phone] Spine Surgery Outpatient Note Service Date: 12/20/2023 Chief Complaint: Follow-up visit for cervical myelopathy History of Present Illness Miroslava Peralta is a 73 year old male with who was last seen in the office on 12/14/2023 for chief complaint of gait imbalance, bilateral upper and lower extremity weakness, numbness, and paresthesias. At our prior visit I recommended CT scan of the cervical spine for operative planning. Miroslava Peralta presents today for review of imaging and plan of care discussion. He has had no change in his symptoms since her prior visit. He continues to have severe gait imbalance, numbness and paresthesias in the bilateral upper extremities, and weakness in the bilateral upper and lower extremities. He has severe difficulty with his dexterity and fine motor tasks. His incontinence is unchanged. He is anxious for surgery to address his issues. Summary of Symptoms Pain Location: Cervical and lumbar spine Radiation of Pain: None Weakness: Upper and lower extremities (global) Dexterity Issues: Yes Imbalance: Yes Falls: Yes Bowel/Bladder Dysfunction: Yes Change in symptoms: None Prior Conservative Treatment Physical Therapy: Yes Medications: Naproxen and acetaminophen Pain Management: No Injections: No Surgery: No Other: No The following portions of the patient's history were reviewed and updated as appropriate: allergies, current medications, past family history, past medical history, past social history, past surgical history and problem list. 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 Augustine. Completed treatment. 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 Dysphagia, oral phase Hip arthritis History of transfusion HTN (hypertension) Insomnia, unspecified Leukocytosis 11/22/1986 [place] admission - thought leukemia and he refused tests Overflow incontinence of urine S/P hip replacement PAST SURGICAL HISTORY Procedure Laterality Date ARTHRP ACETBLR/PROX FEM PROSTC AGRFT/ALGRFT Right 07/25/2014 Hip replacement, total, right COLONOSCOPY 07/16/03 random biopsies negative COLONOSCOPY FLX DX W/COLLJ SPEC WHEN PFRMD 06/27/2013 Colonoscopy JOINT REPLACEMENT HX PAST SURGICAL HISTORY OF 1997 shoulder surgery bilateral PAST SURGICAL HISTORY OF 1997 tendon repair bilat elbows. SKIN BIOPSY HX FAMILY HISTORY Problem Relation Age of Onset Cancer Mother breast cancer Hypertension Mother None Father father in train accident at yuni age Hypertension Sister Social History Tobacco Use Smoking status: Former Packs/day: 2.00 Years: 23.00 Additional pack years: 0.00 Total pack years: 46.00 Types: Cigarettes Quit date: 11/22/1992 Years since quittin.0 Smokeless tobacco: Never Vaping Use Vaping Use: Never used Substance Use Topics Alcohol use: Not Currently Comment: quit in 1991. Drug use: No Com (more content not included)... Normal [facility] CT CERVICAL SPINE WO IVCONon 12-17-2023 CT CERVICAL SPINE WO IVCON Normal [facility] CNOVon 12-14-2023 CNOV Office Visit ([facility] ) MIROSLAVA PERALTA ([id number]) 1950 [facility]* Date Time Provider Department 12/14/23 3:00 PM [facility] During your visit today, we recorded the following information about you: Pulse Blood pressure 89/minute 133/77 Vero Kc MA 12/15/2023 9:33 PM Signed REVIEW OF SYSTEMS: GENERAL: dizzy PAIN: Chronic Pain CARDIOVASCULAR: Negative for chest pain, leg swelling and palpations. MSK: Positive for joint swelling SKIN: Negative for lesions, rash, itching, metal sensitivity NEURO: Numbness/tingling of extremties ENDOCRINE: Negative for diabetic associated symptoms HEMATOLOGY: Negative for excessive bleeding, clots, bleeding disorders. Vero Kc MA 12/14/2023 3:37 PM Signed 73 year old male is here today for back pain. Pt stated he had 5 back surgeries in the past. Pt states he has numbness and tingling at the bottom of both feet and hands. Pt states he's been very dizzy for the past couple weeks but will be starting physical therapy soon. Vero Kc MA December 14, 2023 3:36 PM' Remy Lemus MD 12/15/2023 9:33 PM Signed Remy Lemus MD [facility] Orthopaedic Surgery - Orthopaedic Spine Surgeon [address], [address], [place], [place] [address] [place] [address], [facility] [address], [place] [address] Phone: [phone] FAX: [phone] Spine Surgery Outpatient Note Service Date: 12/14/2023 Referring Provider: Gudelia Paul [place] [id number] Chief Complaint: Gait imbalance, bilateral upper and lower extremity weakness, numbness, and paresthesias History of Present Illness Miroslava Peralta is a 73 year old male with medical history significant for HTN, hepatitis C, dysphagia presenting with friend as a new patient today. Miroslava Peralta presents with primary complaint of gait imbalance, bilateral upper and lower extremity weakness, numbness, and paresthesias. The patient has history of fall and traumatic loosening of right femoral component. He has undergone multiple surgeries between December and March 2023 for this issue. He reports that symptoms of gait imbalance and lower extremity weakness have been present since before the time of the fall, but have been progressively worsening therapy. He additionally reports weakness, numbness, and paresthesias of the upper and lower extremities. He has significant difficulty with dexterity and fine motor tasks. Over the last few months, he has also developed numbness of his penis and urinary incontinence. He is able to ambulate with great difficulty using a walker, but uses a wheelchair for longer distances. He has pain in the bilateral buttocks and thighs when standing upright. He denies smoking. Denies prior surgery on the cervical or lumbar spine. Summary of Symptoms Pain Location: Cervical and lumbar spine Radiation of Pain: None Weakness: Upper and lower extremities (global) Dexterity Issues: Yes Imbalance: Yes Falls: Yes Bowel/Bladder Dysfunction: yes Prior Conservative Treatment Physical Therapy: Yes Medications: Naproxen and acetaminophen Pain Management: No Injections: No Surgery: No Other: No The following portions of the patient's history were reviewed and updated as appropriate: allergies, current medications, past family history, past medical history, past social history, past surgical history and problem list. 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 Augustine. Completed treatment. 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 Normal [facility] XR CERVICAL 4V AP/LAT/FLX/EX Ton 12-14-2023 XR CERVICAL 4V AP/LAT/FLX/EXT * * *Final Report* * * DATE OF EXAM: Dec 14 2023 3:08PM [id number] [id number] - XR CERVICAL 4V AP/LAT/FLX/EXT / PROCEDURE REASON: Cervical myelopathy ([facility]) * * * * Physician Interpretation * * * * XR CERVICAL 4V AP/LAT/FLX/EXT, XR LUMBAR 2V AP/LAT Ordering Physician: REMY LEMUS CERVICAL SPINE SERIES 5 VIEWS Clinical Statement: Cervical myelopathy. Comparison 04/09/2022 FINDINGS: Multilevel severe degenerative disc disease especially the C3-4, C5-C6 and C6-7 levels. There is slight retrolisthesis of C3 on C4 and C5 on C6. These reduce with flexion. No prevertebral soft tissue swelling. The lung apices are clear. Atherosclerotic calcifications in the carotid bifurcation region IMPRESSION: Multilevel degenerative disc disease and facet arthropathy with slight retrolisthesis at the C3-4 and C5-C6 levels which reduces with flexion. LUMBAR SPINE SERIES 3 VIEWS: INDICATION: Spinal stenosis of the lumbar region with neurogenic claudication. FINDINGS: Counting reference: Lumbosacral junction. For the purposes of this report, L4-5 is considered the level of the iliac crest and assumed there are 5 lumbar-type vertebra. Anatomic variant: None. No acute fractures. The sagittal alignment is fairly well preserved. Multilevel moderate to severe degenerative disc disease most marked at the L4-5 level. Multilevel facet arthropathy. The sacroiliac joints are grossly normal. Right hip prosthesis. A moderate to severe degenerative change left hip. IMPRESSION: No acute osseous abnormality. Multilevel facet arthropathy and multilevel degenerative disc disease most marked at the L4-5 level. Design Editor: PSCB Transcribe Date/Time: Dec 16 2023 7:27A Dictated by : CALISTA DICKINSON MD This examination was interpreted and the report reviewed and electronically signed by: CALISTA DICKINSON MD on Dec 16 2023 7:30AM EST [id number] [facility] XR LUMBAR 2V AP/LATon 2023 XR LUMBAR 2V AP/LAT * * *Final Report* * * DATE OF EXAM: Dec 14 2023 3:08PM [id number] [id number] - XR LUMBAR 2V AP/LAT / PROCEDURE REASON: Spinal stenosis of lumbar region with neurogenic claudication * * * * Physician Interpretation * * * * XR CERVICAL 4V AP/LAT/FLX/EXT, XR LUMBAR 2V AP/LAT Ordering Physician: REMY LEMUS CERVICAL SPINE SERIES 5 VIEWS Clinical Statement: Cervical myelopathy. Comparison 04/09/2022 FINDINGS: Multilevel severe degenerative disc disease especially the C3-4, C5-C6 and C6-7 levels. There is slight retrolisthesis of C3 on C4 and C5 on C6. These reduce with flexion. No prevertebral soft tissue swelling. The lung apices are clear. Atherosclerotic calcifications in the carotid bifurcation region IMPRESSION: Multilevel degenerative disc disease and facet arthropathy with slight retrolisthesis at the C3-4 and C5-C6 levels which reduces with flexion. LUMBAR SPINE SERIES 3 VIEWS: INDICATION: Spinal stenosis of the lumbar region with neurogenic claudication. FINDINGS: Counting reference: Lumbosacral junction. For the purposes of this report, L4-5 is considered the level of the iliac crest and assumed there are 5 lumbar-type vertebra. Anatomic variant: None. No acute fractures. The sagittal alignment is fairly well preserved. Multilevel moderate to severe degenerative disc disease most marked at the L4-5 level. Multilevel facet arthropathy. The sacroiliac joints are grossly normal. Right hip prosthesis. A moderate to severe degenerative change left hip. IMPRESSION: No acute osseous abnormality. Multilevel facet arthropathy and multilevel degenerative disc disease most marked at the L4-5 level. Design Editor: AMANDA Transcribe Date/Time: Dec 16 2023 7:27A Dictated by : CALISTA DICKINSON MD This examination was interpreted and the report reviewed and electronically signed by: CALISTA DICKINSON MD on Dec 16 2023 7:30AM EST [id number] [facility] 12-13-2023 [facility] Telephone (ORPainting With A Twist) MIROSLAVA PERALTA ([id number]) 1950 [facility]* Date Time Provider Department 12/13/23 REMY LEMUS [facility] During your visit today, we recorded the following information about you: Vero Kc MA 12/13/2023 3:53 PM Signed Patient confirmed appointment on 12/14/23 and stated he will try to have x-rays completed prior to his appointment. Allergies As of Date: 12/13/2023 Noted Allergy Reaction CARDIZEM (DILTIAZEM HCL) 03/04/2011 14 - Other: See Comments Comments: panic attack DIOVAN (VALSARTAN) 09/29/2010 8 - GI Upset Comments: Caused nausea HYZAAR (LOSARTAN-HYDROCHLOROTHIAZ* 03/04/2011 14 - Other: See Comments Comments: Mood change LOPRESSOR (METOPROLOL TARTRATE) 03/22/2018 14 - Other: See Comments Comments: no energy, wiped pt out Date Reviewed: 12/08/2023 Reviewed by: Dione England LPN - Fully Assessed Reason for Visit: Appointment [186] Prescriptions as of 12/13/2023 - meclizine (ANTIVERT) 12.5 mg tab Take 1 tablet by mouth three times a day. - testosterone (ANDROGEL) 50 mg / 5 g (1%) Apply 1 Packet as directed once daily for 90 days. - Melatonin 5 mg cap Take 1 capsule by mouth daily at bedtime. - ferrous sulfate EC 324 mg (65 mg iron) TbEC Take 1 tablet by mouth two times a day with meals. - gabapentin (NEURONTIN) 300 mg capsule Take 2 capsules by mouth three times a day for 90 days. - lisinopril (ZESTRIL) 20 mg tablet Take 1 tablet by mouth once daily. - amLODIPine (NORVASC) 10 mg tablet Take 1 tablet by mouth once daily. - traZODone (DESYREL) 50 mg tablet Take 1 tablet by mouth daily at bedtime. - buPROPion XL (WELLBUTRIN XL) 300 mg 24 hr tablet Take 1 tablet by mouth once daily. - tamsulosin (FLOMAX) 0.4 mg Take 1 capsule by mouth daily at bedtime. - naproxen (NAPROSYN) 500 mg tablet Take 500 mg by mouth twice daily with meals. - polyethylene glycol 3350 17 gram packet Take 17 g by mouth once daily. Dissolve dose in 4 - 8 ounces of liquid and take as directed. - menthol/camphor (BIOFREEZE TOPICAL) Apply to affected area three times daily. Apply to posterior hand and right scapula for pain and order to apply every four hours as needed for pain not to exceed more than four total applications per day. - senna (SENOKOT) 8.6 mg tab Take 1 tablet by mouth twice daily as needed for constipation. - acetaminophen (TYLENOL) 325 mg tablet Take 2 tablets by mouth every 6 hours as needed (mild pain or fever >100). Problem List As Of Date 12/13/2023 Noted Resolved Diarrhea [R19.7] 07/31/2010 11/16/2022 Hypertension [I10] 07/31/2010 Sleeping difficulty [G47.9] 09/29/2010 Anxiety [F41.9] 09/29/2010 03/22/2022 Impaired fasting blood sugar [R73.01] 10/02/2010 03/22/2022 S/P hip replacement [Z96.649] 08/07/2014 Shoulder pain, right [M25.511] 09/04/2014 03/22/2022 Primary localized osteoarthrosis of shoulder re*12/12/2014 03/22/2022 S/P shoulder joint replacement [Z96.619] 02/21/2015 Chronic hepatitis C without hepatic coma (HCC) *01/05/2019 06/29/2023 Chronic bilateral low back pain without sciatic*12/18/2020 03/22/2022 MGUS (monoclonal gammopathy of unknown signific*03/15/2021 Numbness and tingling of foot [R20.0, R20.2] 07/20/2021 03/22/2022 Former smoker [Z87.891] 02/23/2022 Neurogenic claudication (HCC) [R29.818] 03/20/2022 Obesity, Class I, BMI 30-34.9 [E66.9] 03/20/2022 S/P laminectomy [Z98.890] 03/20/2022 Post-op pain [G89.18] 03/29/2022 Chronic vertigo [R42] 06/09/2022 Intractable low back pain [M54.59] 11/12/2022 Generalized abdominal pain [R10.84] 11/12/2022 11/16/2022 Rib fractures [S22.49XA] 11/12/2022 Incontinence of urine [R32] 11/14/2022 11/16/2022 Periprosthetic fracture around internal prosthe*01/08/2023 Chronic constipation [K59.09] 03/11/2023 Fecal smearing [R15.1] 03/11/2023 Paresthesia of saddle area: Cauda equina ruled *03/11/2023 DDD (degenerative disc disease), lumbar [M51.36]03/11/2023 Hypogonadism in male [E29.1] 03/11/2023 High serum follicle stimulating hormone (FSH) [*03/11/2023 Testicular atrophy [N50.0] 03/11/2023 ED (erectile dysfunction) of organic origin [N5*03/11/2023 Mechanical complication of prosthetic hip impla*03/31/2023 04/05/2023 Encounter Status:Closed by VERO KC on 12/13/23 [facility] CNOVon 12-08-2023 CNOV Normal [facility] CNPNon 12-03-2023 CNPN Telephone (AGOTAL) MIROSLAVA PERALTA ([id number]) 1950 [address] Date Time Provider Department 12/03/23 GUDELIA SAMUEL During your visit today, we recorded the following information about you: Nuris Nolen 12/03/2023 9:[address] Samuel would like patient to follow Dr Lemus regarding MRI results. Message left for Don with direct extension and spoke with AMANDO Jiménez. She will call back once she checks calendar. Nuris Nolen 12/08/2023 9:39 AM Signed Scheduled. Allergies As of Date: 12/03/2023 Noted Allergy Reaction CARDIZEM (DILTIAZEM HCL) 03/04/2011 14 - Other: See Comments Comments: panic attack DIOVAN (VALSARTAN) 09/29/2010 8 - GI Upset Comments: Caused nausea HYZAAR (LOSARTAN-HYDROCHLOROTHIAZ* 03/04/2011 14 - Other: See Comments Comments: Mood change LOPRESSOR (METOPROLOL TARTRATE) 03/22/2018 14 - Other: See Comments Comments: no energy, wiped pt out Date Reviewed: 10/28/2023 Reviewed by: Yudy Nelson Ma - Fully Assessed Reason for Visit: Appointment [186] Prescriptions as of 12/08/2023 - testosterone (ANDROGEL) 50 mg / 5 g (1%) Apply 1 Packet as directed once daily for 90 days. - Melatonin 5 mg cap Take 1 capsule by mouth daily at bedtime. - ferrous sulfate EC 324 mg (65 mg iron) TbEC Take 1 tablet by mouth two times a day with meals. - gabapentin (NEURONTIN) 300 mg capsule Take 2 capsules by mouth three times a day for 90 days. - lisinopril (ZESTRIL) 20 mg tablet Take 1 tablet by mouth once daily. - amLODIPine (NORVASC) 10 mg tablet Take 1 tablet by mouth once daily. - traZODone (DESYREL) 50 mg tablet Take 1 tablet by mouth daily at bedtime. - buPROPion XL (WELLBUTRIN XL) 300 mg 24 hr tablet Take 1 tablet by mouth once daily. - tamsulosin (FLOMAX) 0.4 mg Take 1 capsule by mouth daily at bedtime. - naproxen (NAPROSYN) 500 mg tablet Take 500 mg by mouth twice daily with meals. - polyethylene glycol 3350 17 gram packet Take 17 g by mouth once daily. Dissolve dose in 4 - 8 ounces of liquid and take as directed. - menthol/camphor (BIOFREEZE TOPICAL) Apply to affected area three times daily. Apply to posterior hand and right scapula for pain and order to apply every four hours as needed for pain not to exceed more than four total applications per day. - senna (SENOKOT) 8.6 mg tab Take 1 tablet by mouth twice daily as needed for constipation. - acetaminophen (TYLENOL) 325 mg tablet Take 2 tablets by mouth every 6 hours as needed (mild pain or fever >100). Problem List As Of Date 12/03/2023 Noted Resolved Diarrhea [R19.7] 07/31/2010 11/16/2022 Hypertension [I10] 07/31/2010 Sleeping difficulty [G47.9] 09/29/2010 Anxiety [F41.9] 09/29/2010 03/22/2022 Impaired fasting blood sugar [R73.01] 10/02/2010 03/22/2022 S/P hip replacement [Z96.649] 08/07/2014 Shoulder pain, right [M25.511] 09/04/2014 03/22/2022 Primary localized osteoarthrosis of shoulder re*12/12/2014 03/22/2022 S/P shoulder joint replacement [Z96.619] 02/21/2015 Chronic hepatitis C without hepatic coma (HCC) *01/05/2019 06/29/2023 Chronic bilateral low back pain without sciatic*12/18/2020 03/22/2022 MGUS (monoclonal gammopathy of unknown signific*03/15/2021 Numbness and tingling of foot [R20.0, R20.2] 07/20/2021 03/22/2022 Former smoker [Z87.891] 02/23/2022 Neurogenic claudication (HCC) [R29.818] 03/20/2022 Obesity, Class I, BMI 30-34.9 [E66.9] 03/20/2022 S/P laminectomy [Z98.890] 03/20/2022 Post-op pain [G89.18] 03/29/2022 Chronic vertigo [R42] 06/09/2022 Intractable low back pain [M54.59] 11/12/2022 Generalized abdominal pain [R10.84] 11/12/2022 11/16/2022 Rib fractures [S22.49XA] 11/12/2022 Incontinence of urine [R32] 11/14/2022 11/16/2022 Periprosthetic fracture around internal prosthe*01/08/2023 Chronic constipation [K59.09] 03/11/2023 Fecal smearing [R15.1] 03/11/2023 Paresthesia of saddle area: Cauda equina ruled *03/11/2023 DDD (degenerative disc disease), lumbar [M51.36]03/11/2023 Hypogonadism in male [E29.1] 03/11/2023 High serum follicle stimulating hormone (FSH) [*03/11/2023 Testicular atrophy [N50.0] 03/11/2023 ED (erectile dysfunction) of organic origin [N5*03/11/2023 Mechanical complication of prosthetic hip impla*03/31/2023 04/05/2023 Encounter Status:Closed by NURIS NOLEN on 12/08/23 Normal [facility] MRI CERVICAL SPINE WO IVCONo n 12-01-2023 MRI CERVICAL SPINE WO IVCON Normal [facility] MRI LUMBAR SPINE WO IVCONon 12-01-2023 MRI LUMBAR SPINE WO IVCON Normal [facility] CNPNon 10-29-2023 CNPN Normal [facility] CNOVon 10-28-2023 CNOV Normal [facility] CNPNon 10-21-2023 CNPN Telephone (AGPOB1) MIROSLAVA PERALTA ([id number]) 1950 [facility] Date Time Provider Department 10/21/23 LIZZIEDASHAWNGUDELIA AGB1 During your visit today, we recorded the following information about you: Pilar Mukherjee 10/21/2023 1:46 PM Signed Pt was a STAT MRI that I was able to schedule for today 10/21/23. I received a call from Jocelin stating that they decided that they do not want to go to the appt today and would rather wait on an appt closer to home. Sent message to personal secretary Allergies As of Date: 10/21/2023 Noted Allergy Reaction CARDIZEM (DILTIAZEM HCL) 03/04/2011 14 - Other: See Comments Comments: panic attack DIOVAN (VALSARTAN) 09/29/2010 8 - GI Upset Comments: Caused nausea HYZAAR (LOSARTAN-HYDROCHLOROTHIAZ* 03/04/2011 14 - Other: See Comments Comments: Mood change LOPRESSOR (METOPROLOL TARTRATE) 03/22/2018 14 - Other: See Comments Comments: no energy, wiped pt out Date Reviewed: 10/20/2023 Reviewed by: Sanjay Solis Tech - Fully Assessed Prescriptions as of 10/21/2023 - lisinopril (ZESTRIL) 20 mg tablet Take 1 tablet by mouth once daily. - amLODIPine (NORVASC) 10 mg tablet Take 1 tablet by mouth once daily. - traZODone (DESYREL) 50 mg tablet Take 1 tablet by mouth daily at bedtime. - buPROPion XL (WELLBUTRIN XL) 300 mg 24 hr tablet Take 1 tablet by mouth once daily. - Melatonin 5 mg cap Take 1 capsule by mouth daily at bedtime. - tamsulosin (FLOMAX) 0.4 mg Take 1 capsule by mouth daily at bedtime. - gabapentin (NEURONTIN) 300 mg capsule Take 2 capsules by mouth three times daily for 90 days. - ferrous sulfate EC 324 mg (65 mg iron) TbEC Take 1 tablet by mouth twice daily with meals. - naproxen (NAPROSYN) 500 mg tablet Take 500 mg by mouth twice daily with meals. - polyethylene glycol 3350 17 gram packet Take 17 g by mouth once daily. Dissolve dose in 4 - 8 ounces of liquid and take as directed. - menthol/camphor (BIOFREEZE TOPICAL) Apply to affected area three times daily. Apply to posterior hand and right scapula for pain and order to apply every four hours as needed for pain not to exceed more than four total applications per day. - senna (SENOKOT) 8.6 mg tab Take 1 tablet by mouth twice daily as needed for constipation. - acetaminophen (TYLENOL) 325 mg tablet Take 2 tablets by mouth every 6 hours as needed (mild pain or fever >100). Problem List As Of Date 10/21/2023 Noted Resolved Diarrhea [R19.7] 07/31/2010 11/16/2022 Hypertension [I10] 07/31/2010 Sleeping difficulty [G47.9] 09/29/2010 Anxiety [F41.9] 09/29/2010 03/22/2022 Impaired fasting blood sugar [R73.01] 10/02/2010 03/22/2022 S/P hip replacement [Z96.649] 08/07/2014 Shoulder pain, right [M25.511] 09/04/2014 03/22/2022 Primary localized osteoarthrosis of shoulder re*12/12/2014 03/22/2022 S/P shoulder joint replacement [Z96.619] 02/21/2015 Chronic hepatitis C without hepatic coma (HCC) *01/05/2019 06/29/2023 Chronic bilateral low back pain without sciatic*12/18/2020 03/22/2022 MGUS (monoclonal gammopathy of unknown signific*03/15/2021 Numbness and tingling of foot [R20.0, R20.2] 07/20/2021 03/22/2022 Former smoker [Z87.891] 02/23/2022 Neurogenic claudication (HCC) [R29.818] 03/20/2022 Obesity, Class I, BMI 30-34.9 [E66.9] 03/20/2022 S/P laminectomy [Z98.890] 03/20/2022 Post-op pain [G89.18] 03/29/2022 Chronic vertigo [R42] 06/09/2022 Intractable low back pain [M54.59] 11/12/2022 Generalized abdominal pain [R10.84] 11/12/2022 11/16/2022 Rib fractures [S22.49XA] 11/12/2022 Incontinence of urine [R32] 11/14/2022 11/16/2022 Periprosthetic fracture around internal prosthe*01/08/2023 Chronic constipation [K59.09] 03/11/2023 Fecal smearing [R15.1] 03/11/2023 Paresthesia of saddle area: Cauda equina ruled *03/11/2023 DDD (degenerative disc disease), lumbar [M51.36]03/11/2023 Hypogonadism in male [E29.1] 03/11/2023 High serum follicle stimulating hormone (FSH) [*03/11/2023 Testicular atrophy [N50.0] 03/11/2023 ED (erectile dysfunction) of organic origin [N5*03/11/2023 Mechanical complication of prosthetic hip impla*03/31/2023 04/05/2023 Encounter Status:Closed by PILAR MUKHERJEE on 10/21/23 [facility] CNOVon 10-20-2023 CNOV Office Visit (AGPOB1 ) MIROSLAVA PERALTA ([id number]) 1950 [address] Date Time Provider Department 10/20/23 2:45 PM GUDELIA SAMUEL During your visit today, we recorded the following information about you: Respiration Weight Height 15/minute 95.3 kg 1.803 m Gudelia Samuel MD 10/21/2023 11:29 PM Signed ORTHOPAEDIC OFFICE NOTE CHIEF COMPLAINT: Follow-up right periprosthetic femur fracture HISTORY OF PRESENT ILLNESS: Miroslava Peralta is a 73 year old male who presents for Pulm evaluation of right periprosthetic femur fracture multiple revision surgeries most recently on 04/02/2023. Regards to the hip he seems to be doing well. He is not having any pain at the hip. He does report that he is having increasing difficulty ambulating. He is a foot drop at baseline but has had worsening numbness in the bilateral lower extremities. This been associated with urinary incontinence as well as worsening balance. He is also having difficulty with hand control or writing. He denies current fevers chills nausea vomiting weight loss fatigue or malaise. He was recently hospitalized for recurrent UTI. Reviewed nursing note and current pain scale. PAST MEDICAL HISTORY Diagnosis Date Acute pharyngitis, unspecified Acute posthemorrhagic anemia Arthritis Bilateral primary osteoarthritis of hip BPH without obstruction/lower urinary tract symptoms Chronic hepatitis C without hepatic coma (HCC) 01/05/2019 10/10/2021 Hep C not detectable 06/16/[address] Augustine. Completed treatment. 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 Dysphagia, oral phase Hip arthritis History of transfusion HTN (hypertension) Insomnia, unspecified Leukocytosis 11/22/1986 [place] admission - thought leukemia and he refused tests Overflow incontinence of urine S/P hip replacement PAST SURGICAL HISTORY Procedure Laterality Date ARTHRP ACETBLR/PROX FEM PROSTC AGRFT/ALGRFT Right 07/25/2014 Hip replacement, total, right COLONOSCOPY 07/16/03 random biopsies negative COLONOSCOPY FLX DX W/COLLJ SPEC WHEN PFRMD 06/27/2013 Colonoscopy JOINT REPLACEMENT HX PAST SURGICAL HISTORY OF 1997 shoulder surgery bilateral PAST SURGICAL HISTORY OF 1997 tendon repair bilat elbows. SKIN BIOPSY HX FAMILY HISTORY Problem Relation Age of Onset Cancer Mother breast cancer Hypertension Mother None Father father in train accident at yuni age Hypertension Sister Social History Tobacco Use Smoking status: Former Packs/day: 2.00 Years: 23.00 Additional pack years: 0.00 Total pack years: 46.00 Types: Cigarettes Quit date: 11/22/1992 Years since quittin.9 Smokeless tobacco: Never Vaping Use Vaping Use: Never used Substance Use Topics Alcohol use: Not Currently Comment: quit in 1991. Drug use: No Comment: Quit drugs in . MEDICATIONS: Current Outpatient Medications Medication Sig lisinopril (ZESTRIL) 20 mg tablet Take 1 tablet by mouth once daily. amLODIPine (NORVASC) 10 mg tablet Take 1 tablet by mouth once daily. traZODone (DESYREL) 50 mg tablet Take 1 tablet by mouth daily at bedtime. buPROPion XL (WELLBUTRIN XL) 300 mg 24 hr tablet Take 1 tablet by mouth once daily. Melatonin 5 mg cap Take 1 capsule by mouth daily at bedtime. tamsulosin (FLOMAX) 0.4 mg Take 1 capsule by mouth daily at bedtime. gabapentin (NEURONTIN) 300 mg capsule Take 2 capsules by mouth three times daily for 90 days. ferrous sulfate EC 324 mg (65 mg iron) TbEC Take 1 tablet by mouth twice daily with meals. naproxen (NAPROSYN) 500 mg tablet Take 500 mg by mouth twice daily with meals. polyethylene glycol 3350 17 gram packet Take 17 g by mouth once daily. Dissolve dose in 4 - 8 ounces of liquid and take as directed. menthol/camphor (BIOFREEZE TOPICAL) Apply to affected area three times daily. Apply to posterior hand and right scapula for pain and order to apply every four hours as needed for pain not to exceed more than four total applications per day. senna (SENOKOT) 8.6 mg tab Take 1 tablet by mouth twice daily as needed for constipation. acetaminophen (TYLENOL) 325 mg tablet Take 2 tablets by mouth every 6 hours as needed (mild pain or fever >100). (Patient taking differently: Take 650 mg by mouth every 6 hours as needed (mild pain or fever >100). 500 MG- two by mouth every eight hours as needed) No current facility-administered medications for this visit. ALLERGIES: ALLERGIES Allergen Reactions Cardizem [Diltiazem* Other: See Comments panic attack Diovan [Valsartan] GI Upset Caused nausea Hyzaar [Losartan-Hy* Other: See Comments Mood change Lopressor [Metoprol* Other: See Comments no energy, wiped pt out PHYSICAL EXAMINATION: Resp 15 Ht 5' 10.98 (1.80m) Wt 210 lb (95.3kg) BMI 29.30 kg/(m2). General A (more content not included)... Normal [facility] Bacteria Ur Culton Bacteria identified Cx Nom (U) Abnormal [facility] Comment on above: Performed By: #### 6 30-4 ####[facility] LABCLIA [id number] [place] [address] [place] CNOVon 09-28-2023 CNOV Normal [facility] CNPNon 09-28-2023 CNPN Normal [facility] CT FLANK WO IVCONon 07-06-20 [facility] URINE CULTUREon 06-30-2023 Bacteria identified Cx Nom (U) <10,000 CFU/ml Mixed microbiota Abnormal [facility] LAURO BY IFA SCREENon 06-29-20 LAURO Pattern Nuclear fine speckled Cl [facility] LAURO Titer 1:160 [facility] Nuclear Ab IF (S) [Titer] Positive Abnormal Negative [facility] B. burgdorferi IgG and IgM p michelle (S)on 06-29-2023 B. burgdorferi IgG+IgM Qn (S) Equivocal Abnormal Negative [facility] C-REACTIVE PROTEIN (CRP)on 0 06-29-2023 CRP [Mass/Vol] 3.3 mg/dL High <0.9 mg/dL [facility] CBC W Auto Differential pane l (Bld)on 06-29-2023 Basophils (Bld) [#/Vol] 0.08 10*3/uL <0.11 k/uL [facility] Basophils/100 WBC (Bld) 0.9 % [facility] Differential cell count method Nom (Bld) Auto [facility] Eosinophils (Bld) [#/Vol] 0.32 10*3/uL <0.46 k/uL [facility] Eosinophils/100 WBC (Bld) 3.4 % [facility] Erythrocyte distribution width (RBC) [Ratio] 16.0 % High 11.5 - 15.0 % [facility] Hematocrit (Bld) [Volume fraction] 40.7 % 39.0 - 51.0 % [facility] Hemoglobin (Bld) [Mass/Vol] 13.0 g/dL 13.0 - 17.0 g/dL [facility] Immature granulocytes (Bld) [#/Vol] <0.10 k/uL [facility] Immature granulocytes/100 WBC (Bld) 0.2 % [facility] Lymphocytes (Bld) [#/Vol] 1.35 10*3/uL 1.00 - 4.00 k/uL [facility] Lymphocytes/100 WBC (Bld) 14.5 % [facility] MCH (RBC) [Entitic mass] 30.4 pg 26.0 - 34.0 pg [facility] MCHC (RBC) [Mass/Vol] 31.9 g/dL 30.5 - 36.0 g/dL [facility] MCV (RBC) [Entitic vol] 95.1 fL 80.0 - 100.0 fL [facility] Monocytes (Bld) [#/Vol] 1.07 10*3/uL High <0.87 k/uL [facility] Monocytes/100 WBC (Bld) 11.5 % [facility] Neutrophils (Bld) [#/Vol] 6.46 10*3/uL 1.45 - 7.50 k/uL [facility] Neutrophils/100 WBC (Bld) 69.5 % [facility] Nucleated RBC (Bld) [#/Vol] <0.01 k/uL [facility] Nucleated RBC/100 WBC (Bld) [Ratio] 0.0 /100 WBC [facility] Platelet mean volume (Bld) [Entitic vol] 9.4 fL 9.0 - 12.7 fL [facility] Platelets (Bld) [#/Vol] 369 10*3/uL 150 - 400 k/uL [facility] RBC (Bld) [#/Vol] 4.28 10*6/uL 4.20 - 6.0 0 m/uL [facility] WBC (Bld) [#/Vol] 9.30 10*3/uL 3.70 - 11. 00 k/uL [facility] Comprehensive metabolic 2000 panelon 06-29-2023 Albumin [Mass/Vol] 4.2 g/dL 3.9 - 4.9 g/dL [facility] ALP [Catalytic activity/Vol] 76 U/L 38 - 113 U/L [facility] ALT [Catalytic activity/Vol] 9 U/L Low 10 - 54 U/L [facility] Anion gap [Moles/Vol] 13 mmol/L 9 - 18 mmol/L [facility] AST [Catalytic activity/Vol] 13 U/L Low 14 - 40 U/L [facility] Bilirubin [Mass/Vol] 0.2 mg/dL 0.2 - 1.3 mg/dL [facility] Calcium [Mass/Vol] 10.0 mg/dL 8.5 - 10. 2 mg/dL [facility] Chloride [Moles/Vol] 99 mmol/L 97 - 105 mmol/L [facility] CO2 [Moles/Vol] 22 mmol/L 22 - 30 mmol/L [facility] Creatinine [Mass/Vol] 0.83 mg/dL 0.73 - 1.22 mg/dL [facility] Estimated Glomerular Filtration Rate 92 mL/min/1.73m >=60 mL/min/1.73m [facility] Glucose [Mass/Vol] 94 mg/dL 74 - 99 mg/dL [facility] Potassium [Moles/Vol] 4.1 mmol/L 3.7 - 5.1 mmol/L [facility] Protein [Mass/Vol] 7.8 g/dL 6.3 - 8.0 g/dL [facility] Sodium [Moles/Vol] 134 mmol/L Low 136 - 144 mmol/L [facility] Urea nitrogen [Mass/Vol] 21 mg/dL 9 - 24 mg/dL [facility] ESR Westergren method (Bld) [Velocity]on 06-29-2023 ESR (Bld) [Velocity] 35 mm/h High 0 - 15 mm/hr [facility] TOX SCREEN ROUT URon 023 Amphetamines Confirm (U) [Mass/Vol] Negative Negative [facility] Barbiturates Urine Negative Negative [facility] Benzodiazepines Urine Negative Negative [facility] Cannabinoids, Urine Negative Negative [facility] Cocaine Ql (U) Negative Negative [facility] Ethanol (U) [Mass/Vol] <11 mg/dL [facility] Opiates Screen Ql (U) Negative Negative [facility] oxyCODONE cutoff Screen (U) [Mass/Vol] Positive Abnormal Negative [facility] Phencyclidine Ql (U) Negative Negative [facility] Urinalysis complete panel (U )on 06-29-2023 Bacteria LM.HPF (Urine sed) [#/Area] Rare Abnormal None Seen /HPF [facility] Bilirubin Ql (U) Negative Negative [facility] Calcium Oxalate Crystals Few Abnormal None Seen /HPF [facility] Clarity (Unsp spec) Clear Clear [facility] Color (U) Light Yellow Yellow [facility] Epithelial cells LM.HPF (Urine sed) [#/Area] Few [facility] Glucose Test strip (U) [Mass/Vol] Negative Trace, Negative [facility] Hemoglobin Ql (U) Negative Negative, Trace [facility] Ketones Ql (U) Negative Trace, Negative [facility] Leukocyte esterase Test strip Ql (U) 500 Balbir/uL Abnormal Negative, 25 Balbir/uL [facility] Nitrite Ql (U) Negative Negative [facility] pH (U) 6.5 [pH] 5.0 - 8.0 [facility] Protein (U) [Mass/Vol] Negative Trace, Negative [facility] RBC LM.HPF (Urine sed) [#/Area] 3-5 /HPF Abnormal 0-3 /HPF [facility] Specific gravity (U) [Rel density] 1.018 1.005 - 1.030 [facility] Urobilinogen Ql (U) Negative Negative [facility] WBC LM.HPF (Urine sed) [#/Area] /[HPF] Abnormal 0-5 /HPF [facility] UA DIP, URINE (POC)on 2022 BILIRUBIN UA (POCT) Negative Negative [facility] CLARITY UA (POCT) Clear [facility] COLOR UA (POCT) Yellow [facility] GLUCOSE UA (POCT) Negative Negative mg/dL [facility] HEMOGLOBIN/BLOOD UA (POCT) Trace-intact Abnormal Negative [facility] KETONE UA (POCT) Negative Negative mg/dL [facility] LEUKOCYTES UA (POCT) Moderate Abnormal Negative [facility] NITRITE UA (POCT) Negative Negative [facility] PH UA (POCT) 6.5 4.5 - 8.0 [facility] Protein Ql (U) Negative Negative mg/dL [facility] SPECIFIC GRAVITY UA (POCT) 1.020 1.005 - 1.030 [facility] UROBILINOGEN UA (POCT) 0.2 E.U./dL Normal E.U./dL [facility] UA DIP, URINE (POC)on 2022 BILIRUBIN UA (POCT) Negative Negative [facility] CLARITY UA (POCT) Cloudy [facility] COLOR UA (POCT) Light yellow [facility] GLUCOSE UA (POCT) Negative Negative mg/dL [facility] HEMOGLOBIN/BLOOD UA (POCT) Moderate Abnormal Negative [facility] KETONE UA (POCT) Negative Negative mg/dL [facility] LEUKOCYTES UA (POCT) Large Abnormal Negative [facility] NITRITE UA (POCT) Positive Abnormal Negative [facility] PH UA (POCT) 7.0 4.5 - 8.0 [facility] Protein Ql (U) 100 mg/dL Abnormal Negative mg/dL [facility] SPECIFIC GRAVITY UA (POCT) 1.020 1.005 - 1.030 [facility] UROBILINOGEN UA (POCT) 0.2 E.U./dL Normal E.U./dL [facility] MRI PITUITARY WO/W IVCONon 0 12-08-2022 MRI PITUITARY WO/W IVCON * * *Final Report* * * DATE OF EXAM: Dec 08 2022 12:24PM [facility] 0314 - MRI PITUITARY WO/W IVCON / PROCEDURE REASON: R51.9-Nonintractable headache, unspecified chronicity pattern, unspecified heada * * * * Physician Interpretation * * * * EXAMINATION: MRI PITUITARY WO/W IVCON CLINICAL HISTORY: Rising FSH levels TECHNIQUE: High resolution sagittal and coronal T1, coronal T2, and gadolinium enhanced, fat-suppressed sagittal and coronal T1-weighted images of the pituitary region. Contrast: 9 mL Dotarem IV COMPARISON: Brain MRI 07/01/2022 RESULT: Postop Changes: None Adenohypophysis: The pituitary gland is within normal limits of size and configuration for age. The adenohypophysis demonstrates normal signal and uniformly enhances following gadolinium administration. No evidence of an underlying mass. Posterior Pituitary Gland: The posterior pituitary gland is present and normal in size and location. Suprasellar Region: No evidence of a suprasellar mass. The optic apparatus is normal in appearance. Cavernous Sinuses: The cavernous sinuses are normal in appearance. A normal flow void is noted in the carotid siphons suggesting patency by spin echo criteria. Brain Parenchyma: The overlying hypothalamus is normal in appearance. The visualized parenchyma is otherwise normal in appearance. Skull Base: No evidence of a marrow replacement process in the underlying skull base. IMPRESSION: No enhancing or hypoenhancing lesion in the pituitary gland. The infundibulum is within normal limits.. Design Editor: AMANDA Transcribe Date/Time: Dec 08 2022 12:27P Dictated by : CONNIE ANDRE MD This examination was interpreted and the report reviewed and electronically signed by: FOZIA ECKERT MD on Dec 08 2022 12:59PM EST [id number] [facility] NURSING PROGon 12-08-2022 NURSING PROG HNO ID: [id number] Author: Sabine Oneil RN Service: Nursing Author Type: Registered Nurse Type: Nursing Progress Note Filed: 12/08/2022 11:48 AM Note Text: Radiology Service Progress Note DATE OF SERVICE: December 08, 2022 TIME: 11:47 AM PATIENT WEIGHT: 217LBS PATIENT IDENTITY VERIFICATION COMPLETED USING TWO (2) STANDARD IDENTIFIERS: Name and Date of confirmed by patient verbally. FALL SCREENING: Has the patient had 2 falls in the last year or 1 fall with injury or currently using an Ambulatory Assistive Device (Walker, Cane, Wheelchair, Crutches, etc.)? No PATIENT GENDER DATA: Male ALLERGIES: Reviewed and unchanged CONTRAST ALLERGY: No EXAM: MRI IV SITE: Ambulatory: A peripheral IV was started in the Right with a Angio cath: 22 gauge. RFA IV SITE APPEARANCE: Clean,Dry and Intact SIGNATURE: Sabine Oneil RN PATIENT NAME: Miroslava Peralta DATE: December 08, 2022 TIME: 11:47 AM Other: [facility] 11-16-2022 [facility] HNO ID: [id number] Author: RT Breann(R) Service: Radiology Author Type: Technologist Type: Allied Health Filed: 11/16/2022 9:57 AM Note Text: Radiology Service Progress Note PATIENT NAME: Miroslava Peralta DATE OF SERVICE: November 16, 2022 TIME: 9:57 AM PATIENT IDENTITY VERIFICATION COMPLETED USING TWO (2) IDENTIFIERS: Name and Date of confirmed by patient verbally and Name and Date of confirmed by identification band. FALL SCREENING: Has the patient had 2 falls in the last year or 1 fall with injury or currently using an Ambulatory Assistive Device (Walker, Cane, Wheelchair, Crutches, etc.)? Inpatient: Screened on floor PATIENT GENDER DATA: Male PATIENT RELEVANT IMPLANT DATA REVIEWED: Yes RADIOLOGY DEPARTMENT: MR; Exam(s) Completed: Spine: Thoracic spine PERIPHERAL IV DATA: Inpatient: see LDA documentation SIGNED BY: RT Breann(R) November 16, 2022 9:57 [facility] HNO ID: [id number] Author: Mary Aguilar MD Service: Hospital Medicine Author Type: Resident Type: Discharge Summary Filed: 11/16/2022 5:15 PM Note Text: Attestation signed by Gianluca Abarca MD at 11/16/2022 7:08 PM Attending Note I evaluated the patient and personally participated in the mcdaniels components. I agree with the resident's findings and plan as documented and have discussed the case and management of the patient's care with the resident. Signature: Gianluca Abarca MD Date: 11/16/2022 Time: 7:07 PM DISCHARGE SUMMARY PATIENT NAME: Miroslava Peralta ADMISSION DATE: 11/14/2022 DISCHARGE DATE: 11/16/2022 ATTENDING PHYSICIAN: Gianluca Abarca MD Code Status: Not on file PCP: Marbella Zaidi PA-C Highest Readmission Risk Score: 15 The 30 day readmissions risk score is derived from an internally validated risk model which evaluates patient level characteristics, utilization history, medication orders and lab results up until the day of discharge. Patients with a score of 40 or above are considered highest risk for readmission. Specific patient level drivers will be listed at the bottom of the summary. TRANSITIONS OF CARE CRITICAL ISSUES: MCDANIELS MEDICATION CHANGES: Start Miralax 17 g dailly, Senna 8.5 mg daily LAB MONITORING NEEDED: Not applicable IMAGING FOLLOW-UP: Not applicable LABS AND PROCEDURES PENDING AT DISCHARGE: Test Results Not Yet Available from This Hospitalization: Please Review at Your Follow Up Appointment Order Current Status CALPROTECTIN,FECAL In process CULTURE, YERSINIA In process ENTERIC BACTERIAL PANEL BY PCR In process No pending results. FOLLOW UP: Follow-up with Neurology within 1-2 weeks. REASON FOR HOSPITALIZATION: Lower back pain PRINCIPAL DIAGNOSIS: Opioid induced constipation SECONDARY DIAGNOSIS: Principal Problem (Resolved): Incontinence of urine POA: Yes Active Problems: Hypertension POA: Yes Chronic hepatitis C without hepatic coma (HCC) POA: Yes S/P laminectomy POA: Yes Intractable low back pain POA: Yes Rib fractures POA: Yes Resolved Problems: Diarrhea POA: Yes Generalized abdominal pain POA: Yes HOSPITAL COURSE: You were admitted to hospital lower extremity numbness and weakness, diarrhea and intractable lower back pain. MRI lumbar and thoracic was done which showed no acute change. Due to increased stool burden secondary to opioid use he was started on a bowel regimen with MiraLAX grams daily. Your constipation has now been relieved and now you are being discharged home in stable condition and recommended to follow-up with pain/spine team. You are also recommended to continue using stool softeners with opioids to prevent constipation. OPERATIONS/PROCEDURE DURING THIS HOSPITALIZATION: * No surgery found * N/A CONSULTS DURING HOSPITALIZATION: Treatment Team: Attending Provider: Gianluca Abarca MD Consulting: Joshua Chris DO Orders Placed This Encounter Smoking Cessation Education FOLLOW UP APPOINTMENT AMBULATORY Physician Consult Physician Consult Follow-Up Appointment PATIENT CONDITION AT DISCHARGE: Stable ADVANCE CARE PLANNING DISCUSSION (if applicable): N/A DISCHARGE DISPOSITION: Home with Home Health Discharge Physical Exam: VITAL SIGNS: BP 112/77 Pulse 77 Temp 36.8 ?C (98.2 ?F) (Oral) Resp 16 Ht 180.3 cm (5' 11 ) Wt 100.6 kg (221 lb 12.5 oz) SpO2 93% BMI 30.93 kg/m? GENERAL: Alert, no distress, cooperative SKIN: Skin color, texture, turgor normal. No rashes or lesions. HEAD/SINUSES: No significant findings EYES: PERRLA, EOMI EARS: External ears normal, canals clear NOSE: Nares normal. Septum midline. OROPHARYNX: Lips, mucosa, and tongue normal. Teeth and gums normal. Oropharynx normal. NECK: No jugulovenous distention, No carotid bruits, Carotid pulse normal contour, Supple LUNGS: Lungs clear to auscultation, Good diaphragmatic excursion CARDIAC: Normal S1 and S2; no rubs, murmurs, or gallops ABDOMEN: Abdomen soft, non-tender, BS normal, No masses or organomegaly EXTREMITIES: Extremities normal, no deformities, edema, clubbing or skin discoloration. Good capillary refill., No ulcers NEURO: Gait normal. Reflexes normal and symmetric. Sensation grossly intact, Cranial nerves II-XII intact PULSES: 2+ radial, 2+ carotid WOUND/SURGICAL SITE CARE: None SUPPLIES OR EQUIPMENT: None DIET: Resume pre-hospital diet ACTIVITY AND EXERCISE: Resume pre-hospital activity ADDITIONAL INFORMATION: This is a 72-year-old male with past medical history of hypertension, status post decompressive laminectomy in March 20, 2022 with abscess IANDD on 03/29/2022 who presents with lower extremities numbness and weakness, diarrhea, intractable lower back pain over the last 7-8-month. M (more content not included)... Normal [facility] MRI THORACIC SPINE WO IVCONo n 11-16-2022 MRI THORACIC SPINE WO IVCON * * *Final Report* * * DATE OF EXAM: Nov 16 2022 10:17AM [facility] 0325 - MRI THORACIC SPINE WO IVCON / PROCEDURE REASON: Spine fracture, thoracic, pathological * * * * Physician Interpretation * * * * EXAMINATION: MRI THORACIC SPINE WO IVCON CLINICAL HISTORY: Thoracic spine fracture. TECHNIQUE: Routine thoracic spine MR protocol. MQ: [id number] COMPARISON: None. RESULT: Counting reference: Lumbosacral junction. For the purposes of this report, anatomic variants: None. L4-5 is considered the level of the iliac crest and assume there are 5 lumbar-type vertebrae. Localizer images: No significant findings. Alignment: Minimal grade 1 anterolisthesis at T2-3 and T3-4. Cord: The visualized cord is within normal limits of signal intensity and morphology. Bone marrow signal/fracture: No evidence of pathologic marrow infiltration. No evidence of acute fracture. Mild chronic anterior wedging of the T7, T8, and T9 vertebral bodies. Scattered Schmorl's nodes. Minimal type I discogenic endplate changes anteriorly at T6-7 and T10-11. There is some incidental STIR hyperintensity within the C6 and C7 vertebral bodies with adjacent edema in the prespinal soft tissues. Thoracic paraspinal soft tissues: The paraspinal soft tissues are within normal limits. Canal and foramina: Mild spinal canal stenosis at T6-7 and T10-11 due to disc bulge. Moderate foraminal stenosis bilaterally at T1-T2, on the left at T6-7, on the left at T8-9, and bilaterally at T9-10 and T10-11 due to facet arthropathy. IMPRESSION: 1. No evidence of pathologic marrow infiltration in the thoracic spine. 2. Chronic anterior wedging of some midthoracic vertebral bodies as described. 3. Degenerative changes as described. 4. Incidental T2/STIR hyperintensity within the T6 and T7 vertebral bodies with some adjacent edema in the prespinal soft tissues at this level, which could be due to recent trauma or inflammation. Anatomic Thoracic/Lumbar Variant: None. L4-5 is considered the level of the iliac crest and assume there are 5 lumbar-type vertebrae. Design Editor: AMANDA Transcribe Date/Time: Nov 16 2022 1:31P Dictated by : LENA ROBERT MD This examination was interpreted and the report reviewed and electronically signed by: LENA ROBERT MD on Nov 16 2022 1:48PM EST [id number] [facility] NURSING PROGon 11-16-2022 NURSING PROG HNO ID: [id number] Author: Mel Nazario RN Service: Nursing Author Type: Registered Nurse Type: Nursing Progress Note Filed: 11/16/2022 7:03 PM Note Text: Daily note: 1811: Discharge instructions reviewed with patient, states understanding. IV heplock removed. 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 1901: Discharge off PK3 via wheelchair with belongings. [facility] THERAPY NTon 11-16-2022 THERAPY NT HNO ID: [id number] Author: JULIA Liang/Madhuri Service: Occupational Therapy Author Type: Occupational Therapist Type: Therapy (PT/OT/Speech/Resp) Filed: 11/16/2022 3:36 PM Note Text: Occupational Therapy Evaluation SERVICE DATE: 11/16/2022 SERVICE TIME: 0951 to 1020 ROOM: [place] [address] Transfer From [facility] Evaluation, Intractable LBP, Diarrhea, Urinary Retention, Overflow Incontinence, BLE Weakness. Pt Presents With h/o Spine Surgery 03/20/22, And Abscess IANDD 03/29/22, Acute/Subacute Left Anterior Rib Fx's #6-9 11/02/22 Recommended Discharge Disposition: Home Pt has adequate support and social structure for reasonably safe discharge home at current level. Anticipated Discharge Needs: Physical Assist at Home Physical Assist at Home for: Laundry;Cleaning;Shopping;T ransportation Recommended Discharge Equipment: Grab Bars-Shower;Hand Held Shower;Long Handled Shoe Horn;Long Handled Sponge;Wheeled Walker;Elastic Shoe Laces;Miller First;Shower Chair OT 6 Clicks Score: 21 Precautions/Activity Restrictions: Spine;Fall Risk;Bed/Chair Alarm Current Hospital Course: Transfer From [facility] Evaluation, Intractable LBP, Diarrhea, Urinary Retention, Overflow Incontinence, BLE Weakness. Pt Presents With h/o Spine Surgery 03/20/22, And Abscess IANDD 03/29/22, Acute/Subacute Left Anterior Rib Fx's #6-9 11/02/22 Reason for Hospital Admission: pt admit with LBP, falls, incontinence of urine, diarrhea, unsteady Relevant Past Medical History: HTN, laminectomy 03/13. rib fractures, hepatitis Occupational Therapy Problem List: Pain;Safety Deficits;Impaired Self Care;Decreased Activity Tolerance;Decreased Strength;Functional Mobility Impairment;Balance Impaired Treatment Interventions: Education;Self Care / Home Management;Energy Conservation Training;Functional Mobility Training;Balance Training Home Environment Patient Lives With: Self/Alone Assistance Available: PRN Entry To Home: No Stairs Number Of Stairs To Bed/Bath: 0 Tub/Shower Type: tub shower Laundry: 1st level, uses a push cart Equipment Owned: Wheeled Walker;Cane;Grab Bars-Shower Prior Functional Level: Within Functional Limits;History of Falls Prior Functional Level Comments: pt indep with cane, indep ADL/IADL's, drives, shops Baseline Cognition: Oriented to self;Oriented to place;Oriented to time 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 Occupational Factors Life Roles: Family Member;Parent;Retired Identified Strengths: Good Support System;Involvement in Hobbies/Leisure Activities;Positive Coping Strategies;Self-Regulation; Effective Communication Skills;Open to Adaptive Equipment/Strategies;Memory /Attention;Problem-Solving Skills;Access to Healthcare;Follows Multi-Step Commands Identified Barriers: Access to Equipment/Resources;Health Maintenance;Medical Acuity/Chronic Condition CURRENT FUNCTIONAL STATUS: Most recent performance Current Activities of Daily Living Assist Level Additional Information Feeding Independent Grooming Modified Independent Bathing Upper Body Modified Independent Bathing Lower Body Minimal Assistance Dressing Upper Body Modified Independent Dressing Lower Body Minimal Assistance Toileting Minimal Assistance Instrumental Activities of Daily Living Assist Level Additional Information Meal/Beverage Prep Cleaning Laundry Medication Management with Strategies Functional Mobility Assist Level Additional Information Rolling Supervision Supine to Sit Supervision Sit to Supine Scooting Modified Independent Sit to Stand Stand By Assistance Stand to Sit Minimal Assistance Bed to Chair Minimal Assistance Stepping Cane Toilet/Commode Shower Functional Mobility Minimal Assistance Cane Blank palencia indicate activity not attempted Balance: Static Sitting;Dynamic Sitting;Static Standing;Dynamic Standing Static Sitting Balance: Good Patient able to maintain balance without handhold support, limited postural sway Dynamic Sitting Balance: Good Patient accepts moderate challenge, able to maintain balance while picking up object off floor Static Standing Balance: Good Patient able to maintain balance without handhold support, limited postural sway Dynamic Standing Balance: Fair Patient accepts minimal challenge, able to maintain balance while turning head/trunk Activity Tolerance: (no fatigue noted) Learning/Educational Needs: Discharge Plan;Equipment;Family Education/Training;Function al Activities/Mobility;Plan of Care;Precautions;Rehabilita tion Techniques and Procedures;Safety;Self Care Goals for Plan of Care: Patient/Caregiver Goals: Participate in meaningful activities Goals: Patient will demonstrate progress with self-care, cognitive and/or coping needs identified to allow safe discharge to home with available support and/or physical assistance. Lower Body Bathing with: M (more content not included)... Normal [facility] THERAPY NT HNO ID: [id number] Author: Joelle Harris PT Service: Physical Therapy Author Type: Physical Therapist Type: Therapy (PT/OT/Speech/Resp) Filed: 11/16/2022 1:43 PM Note Text: Physical Therapy Evaluation SERVICE DATE: 11/16/2022 SERVICE TIME: 1017 to 1042 ROOM: [place] [address] Recommended Discharge Disposition: Home PT Recommended Discharge Disposition Comments: for high level balance training Anticipated Discharge Needs: Physical Assist at Home Physical Assist at Home for: Laundry;Cleaning;Shopping;T ransportation PT 6 Clicks Score: 22 Precautions/Activity Restrictions: Spine;Fall Risk;Bed/Chair Alarm Reason for Hospital Admission: pt admit with LBP, falls, incontinence of urine, diarrhea, unsteady Relevant Past Medical History: HTN, laminectomy 03/13. rib fractures, hepatitis Response to Therapy Interventions: Good participation in activities Continue skilled needs due to: Functional mobility/skill impairments Physical Therapy Problem List: Functional Mobility Impairment;Decreased Activity Tolerance;Balance Impaired Treatment Interventions: Education;Self Care / Home Management;Strengthening;Fu nctional Mobility Training;Balance Training Plan for next visit: Gait training, Exercise instruction/handout, Standing Tolerance, Standing Balance Home Environment Patient Lives With: Self/Alone Assistance Available: PRN Entry To Home: No Stairs Number Of Stairs To Bed/Bath: 0 Tub/Shower Type: tub shower Equipment Owned: Wheeled Walker;Cane;Grab Bars-Shower Prior Functional Level: Within Functional Limits;History of Falls Prior Functional Level Comments: pt indep with cane, indep ADL/IADL's, drives, shops Patient Report: I'm so used to pain CURRENT FUNCTIONAL STATUS: Most recent performance Current Functional Mobility Assist Level Additional Information Rolling Supervision Supine to Sit Supervision Sit to Supine Supervision Scooting Supervision Sit to Stand Stand By Assistance Stand to Sit Stand By Assistance Bed to Chair Toilet/Commode Gait Contact Guard Assistance Gait Device: Cane Gait Distance (feet): 85 Stairs Curb Step Car Transfer Blank palencia indicate activity not attempted General Deviations/Observations: Path Deviation Balance: Static Standing Static Standing Balance: Good Patient able to maintain balance without handhold support, limited postural sway [facility]: 7: Walk 25 feet or more Learning/Educational Needs: Functional Activities/Mobility;Safety Goals for Plan of Care: Patient /Caregiver Goals: Go Home Goals: Patient will demonstrate progress with functional mobility to allow safe discharge to home with available support and/or physical assistance. Progress Toward Goals: Progressing as expected Rehab Potential: Good Patient will be discontinued from Physical Therapy when no further skilled needs are identified in this setting. PLAN: PT Frequency: One additional visit Plan of Care developed with: Patient TREATMENT INTERVENTIONS: Therapy Diagnosis: Reduced mobility-other;Muscle Weakness (generalized);Abnormalities of gait and mobility-other;General symptoms and signs-other Interventions Provided: Evaluation;Gait Training (16311) $ Evaluation-Low (92730) Billed Units: 1 unit Gait Training (64179) Treatment Minutes: 10 $ Gait Training (83569) Billed Units: 1 unit Training AND education provided in: Assistive device use, Anatomy and impact on deficits, Benefits of in-hospital mobility, Gait pattern, reduction of deviations, Home safety, Precautions/restrictions, Positioning, Role of Physical Therapy, Transfers, Standing balance The following therapeutic skills were used: Activity dosing, Cues for sequencing/proper technique for activity, Cuing tactile, Cuing verbal Timed Code Treatment (minutes): 10 Skilled Treatment Time (minutes): 25 Please see discipline specific clinical documentation flowsheet for complete details for this therapy evaluation/treatment. SIGNATURE: Joelle Harris PT PATIENT NAME: Miroslava Peralta DATE: November 16, 2022 TIME: 1:42 PM [facility] CONSULTon 11-15-2022 CONSULT HNO ID: [id number] Author: Nayeli Flores APRN.CNP Service: Gastroenterology Author Type: Nurse Practitioner Type: Consults Filed: 11/15/2022 3:42 PM Note Text: CONSULT: GI SERVICE SERVICE DATE: 11/15/2022 SERVICE TIME: 3:16 PM REASON FOR CONSULT: diarrhea and constipation REQUESTING PHYSICIAN: Dr Rebollar PRIMARY CARE PHYSICIAN: Marbella Zaidi PA-C Subjective Mr. Peralta is a 72 year old male with PMHx HTN, prior decompressive laminectomy in March 20, 2022 with abscess IANDD on 03/29/2022 who presents with lower extremities numbness and weakness, diarrhea, intractable lower back pain over the last 7-8-month. GI service being consulted for diarrhea and constipation. Pt reports chronic constipation, does not take a daily bowel regimen but will take a stool softener if he hasn't had a BM in 3 or 4 days. He also reports intermittent abdominal pain that is associated with constipation. He reports he will get constipation, then have a formed BM then multiple episodes of diarrhea, so severe that he needs to wear a brief. He denies any nausea, vomiting, dysphagia, indigestion. He denies use of blood thinners but uses NSAIDs daily for pain. He also takes oxycodone 3-4 times per day for pain. Prior GI workup: Colonoscopy 2012 Impression: - Non-bleeding internal hemorrhoids. - Diverticulosis in the proximal sigmoid colon. 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 SKIN BIOPSY HX FAMILY HISTORY Problem Relation Age of Onset Cancer Mother breast cancer Hypertension Mother None Father father in train accident at yuni age Hypertension Sister Social History Tobacco Use Smoking status: Former Packs/day: 2.00 Years: 23.00 Pack years: 46.00 Types: Cigarettes Quit date: 11/22/1992 Years since quittin.0 Smokeless tobacco: Never Vaping Use Vaping Use: Never used Substance Use Topics Alcohol use: Not Currently Comment: quit in 1991. Drug use: No Comment: Quit drugs in . gabapentin (NEURONTIN) 300 mg capsule, Take 2 capsules by mouth three times daily for 90 days., Disp: 540 capsule, Rfl: 0 docusate sodium (COLACE) 100 mg capsule, Take 1 capsule by mouth twice daily as needed., Disp: , Rfl: psyllium (METAMUCIL) 3.4 gram packet, Take 1 Packet by mouth once daily., Disp: , Rfl: oxyCODONE IR (ROXICODONE) 5 mg immediate release tablet, Take 1 tablet by mouth every 6 hours as needed (moderate pain). Hold for hypotension or sedation or RR less than 12, Disp: , Rfl: 0 morphine 2 mg/mL syringe, Inject 0.5 mL intravenously every 4 hours as needed (severe pain) for up to 5 days. Hold for hypotension or sedation or RR less than 12, Disp: , Rfl: 0 ondansetron orally disintegrating (ZOFRAN ODT) 4 mg disintegrating tablet, Take 1 tablet by mouth every 6 hours as needed., Disp: , Rfl: ondansetron, PF, (ZOFRAN) 4 mg/2 mL soln, Inject 4 mg intravenously every 6 hours as needed., Disp: , Rfl: acetaminophen (TYLENOL) 325 mg tablet, Take 2 tablets by mouth every 6 hours as needed (mild pain or fever >100)., Disp: , Rfl: amLODIPine (NORVASC) 10 mg tablet, Take 1 tablet by mouth once daily. (Patient taking differently: Take 10 mg by mouth daily at bedtime.), Disp: 90 tablet, Rfl: 1 traZODone (DESYREL) 150 mg tablet, Take 1 tablet by mouth daily at bedtime., Disp: 90 tablet, Rfl: 1 lisinopril (ZESTRIL, PRINIVIL) 20 mg tablet, Take 1 tablet by mouth once daily., Disp: 90 tablet, Rfl: 1 Current Facility-Administered Medications Medication Dose Route Frequency traZODone 150 mg tab(s) (DESYREL) 150 mg ORAL AT BEDTIME psyllium 1 Packet (METAMUCIL) 1 Packet ORAL DAILY lisinopril 20 mg tab(s) (ZESTRIL, PRINIVIL) 20 mg ORAL DAILY gabapentin 600 mg cap(s) (NEURONTIN) 600 mg ORAL TID docusate sodium 100 mg cap(s) (COLACE) 100 mg ORAL BID PRN amLODIPine 10 mg tab(s) (NORVASC) 10 mg ORAL AT BEDTIME NaCl 0.9% iv flush bag 20 mL INTRAVENOUS PRN ondansetron 4 mg tab(s) (ZOFRAN) 4 mg ORAL q 6 H PRN Or ondansetron (PF) 4 mg injection (ZOFRAN) 4 mg INTRAVENOUS q 6 H PRN acetaminophen 650 mg tab(s) (TYLENOL) 650 mg ORAL q 6 H PRN oxyCODONE IR 5 mg tab(s) (ROXICODONE) 5 mg ORAL q 6 H PRN polyethylene glycol 3350 17 g packet (MIRALAX, GLYCOLAX) 17 g ORAL DAILY Allergies As of Date: 11/11/2022 Allergen Noted Reaction CARDIZEM [DILTIAZEM HCL] 03/04/2011 Other: See Comm (more content not included)... Normal [facility] CULTURE, YERSINIAon 11-15-20 CULTURE, YERSINIA Negative Normal [facility] Comment on above: Performed By: #### Y JORGE ####[facility] [id number] [place] [address] [place] Calprotectin Stl-mCnton 12- Calprotectin (Stl) [Mass/Mass] 40.3 mg/kg Normal 0-50 [facility] Comment on above: Order Comment: Speci men Type: STOOL SPECIMEN Ordering Facility: [facility] Address: [address] [place] [id number] Result Comment: INTE RPRETIVE INFORMATION: Calprotectin, Fecal <50.0 mg/kg : Normal 50.0-120.0 mg/kg: Borderline. Test should be re-evaluated in 4-6 wks. >120.0 mg/kg: Abnormal Performed By: #### 3 8445-3 #### [facility] CLIA [id number] [address] [place] [address] [place] G lamblia+Cryptosp Ag Stl Ql IAon 11-15-2022 G. lamblia+Cryptospor idium sp Ag IA Ql (Stl) CRYPTOSPORIDIUM ANTIGEN BY EIA: Negative for Cryptosporidium by EIA. GIARDIA ANTIGEN BY EIA: Negative for Giardia lamblia by EIA. Normal [facility] Comment on above: Performed By: #### 4 8059-0 ####[facility] [id number] [place] [address] [place] Gastrointestinal pathogens i dentified CORIN+probe Nom (Stl)on 11-15-2022 Campylobacter sp DNA CORIN+probe Nom (Unsp spec) Not detected Normal Not Detected [facility] Comment on above: Order Comment: Speci men Type: STOOL SPECIMEN Ordering Facility: [facility] Address: [address] [id number] Performed By: #### 7 9390-1 #### [facility] CLIA [id number] [address] [place] [address] [place] Salmonella sp DNA CORIN+probe Ql (Unsp spec) Not detected Normal Not Detected [facility] Comment on above: Order Comment: Speci men Type: STOOL SPECIMEN Ordering Facility: [facility] Address: [address] [place] [address] Performed By: #### 7 9390-1 #### [facility] CLIA [id number] [address] [place] [address] Shiga toxin stx gene CORIN+probe Nom (Unsp spec) Not detected Normal Not Detected [facility] Comment on above: Order Comment: Speci men Type: STOOL SPECIMEN Ordering Facility: [facility] Address: [address] [place] [address] Performed By: #### 7 9390-1 #### [facility] CLIA [id number] [address] [place] [address] Shigella sp DNA CORIN+probe Ql (Unsp spec) Not detected Normal Not Detected [facility] Comment on above: Order Comment: Speci men Type: STOOL SPECIMEN Ordering Facility: [facility] Address: [address] [place] [address] Performed By: #### 7 9390-1 #### [facility] CLIA [id number] [address] [place] [address] [place] HISTORY PHYSICALon HISTORY PHYSICAL HNO ID: [id number] Author: Quin Okeefe MD Service: Hospital Medicine Author Type: Physician Type: HANDP Filed: 11/15/2022 4:17 AM Note Text: DEPARTMENT OF HOSPITAL MEDICINE HISTORY AND PHYSICAL EXAM SERVICE DATE: 11/14/2022 Code Status: Not on file SERVICE TIME: 10:29 PM Primary Care Physician: Marbella Zaidi PA-C NIGHT AND WEEKEND COVERAGE: [employer] COVERAGE:[employer]: [phone], please page me (attending) for patient issues. , please call Team 4 pager [phone] Subjective CHIEF COMPLAINT: Lower extremities numbness and weakness HPI: This is a 72 year old male with history of hypertension, status post decompressive laminectomy in March 20, 2022 with abscess IANDD on 03/29/2022 who presents with lower extremities numbness and weakness, diarrhea, intractable lower back pain over the last 7-8-month. Patient presented to the ED on 11/12/2022. Patient complained of stool incontinence and has to wear a diaper, initially started as diarrhea and he has 4-5 episodes per day for the last 3 days. He also complained of urinary incontinence that has been going on for the the last few months. Patient also complained of loss of sensation below his knees and bottom of his bilateral feet. He also complained of left-sided lateral chest wall pain due to rib fractures. [facility] ED staff discussed with neurosurgery on-call at [facility] and recommended MRI of lumbar spine and to transfer patient to [facility] once bed available for evaluation by neurosurgery team. Patient complained of feeling weak in his feet that causing unsteady gait with numbness of both legs and feet.. In the ED his work-up CT abdomen pelvis showed no acute intra-abdominal or pelvic abnormality. Acute to subacute appearing left anterolateral rib fractures. Patient has been hemodynamically stable. TSH blood within normal limit. Troponin is negative. CBC and CMP unremarkable. Celiac work-up is pending but IgA blood within normal limits. Blood culture no growth. UA not suggestive of infection. Magnesium within normal limits. MRI lumbar spine without IV contrast showed 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 EKG normal sinus rhythm. Left axis deviation. 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 SKIN BIOPSY HX FAMILY HISTORY Problem Relation Age of Onset Cancer Mother breast cancer Hypertension Mother None Father father in train accident at yuni age Hypertension Sister Social History Tobacco Use Smoking status: Former Packs/day: 2.00 Years: 23.00 Pack years: 46.00 Types: Cigarettes Quit date: 11/22/1992 Years since quittin.9 Smokeless tobacco: Never Vaping Use Vaping Use: Never used Substance Use Topics Alcohol use: Not Currently Comment: quit in 1991. Drug use: No Comment: Quit drugs in . PRIOR TO ADMISSION MEDICATIONS: gabapentin (NEURONTIN) 300 mg capsule, Take 2 capsules by mouth three times daily for 90 days., Disp: 540 capsule, Rfl: 0 docusate sodium (COLACE) 100 mg capsule, Take 1 capsule by mouth twice daily as needed., Disp: , Rfl: psyllium (METAMUCIL) 3.4 gram packet, Take 1 Packet by mouth once daily., Disp: , Rfl: oxyCODONE IR (ROXICODONE) 5 mg immediate release tablet, Take 1 tablet by mouth every 6 hours as needed (moderate pain). Hold for hypotension or sedation or RR less than 12, Disp: , Rfl: 0 morphine 2 mg/mL syringe, Inject 0.5 mL intravenously every 4 hours as needed (severe pain) for up to 5 days. Hold for hypotension or sedation or RR less than 12, Disp: , Rfl: 0 ondansetron orally disintegrating (ZOFRAN ODT) 4 mg disintegrating tablet, Take 1 tablet by mouth every 6 hours as needed., Disp: , Rfl: ondansetron, PF, (ZOFRAN) 4 mg/2 mL soln, Inject 4 mg intravenously every 6 hours as needed., Disp: , Rfl: acetaminophen (TYLENOL) 325 mg tablet, Take 2 tablets by mouth every 6 hours as needed (mild pain or fever >100)., Disp: , Rfl: amLODIPine (NORVASC) 10 mg tablet, Take 1 tablet by mouth once daily. (Patient taking differently: Take 10 mg by mouth daily at bedtime.), Disp: 90 tablet, Rfl: 1 traZODone (DESYREL) 150 mg tablet, Take 1 tablet by mouth daily at bedtime., Disp: 90 tablet, Rfl: (more content not included)... Normal [facility] HbA1c (Bld)on 11-15-2022 Average glucose Estimated from glycated hemoglobin (Bld) [Mass/Vol] 105 mg/dL Normal [facility] Comment on above: Order Comment: Speci men Type: BLOOD SPECIMEN Ordering Facility: [facility] Address: [address] [place] [id number] Result Comment: eAG: (Estimated average glucose) is a calculated value from HgbA1c and is patient representative of the average blood glucose level in the last 2-3 month period. Performed By: #### 5 5454-3 #### [facility] CLIA [id number] [address] [place] [address] [place] [place] HbA1c (Bld) [Mass fraction] 5.3 % Normal 4.3-5.6 [facility] Comment on above: Order Comment: Speci men Type: BLOOD SPECIMEN Ordering Facility: [facility] Address: [address] [id number] Result Comment: [place] Diabetes Association guidelines indicate that patients with HgbA1c in the range 5.7-6.4% are at increased risk for development of diabetes, and intervention by lifestyle modification may be beneficial. HgbA1c greater or equal to 6.5% is considered diagnostic of diabetes. Performed By: #### 5 5454-3 #### [facility] CLIA [id number] [facility] [address] [place] NURSING PROGon 11-15-2022 NURSING PROG HNO ID: [id number] Author: Donna Paula RN Service: Nursing Author Type: Registered Nurse Type: Nursing Progress Note Filed: 11/16/2022 4:30 AM Note Text: Other: Pt requesting home med Naproxen to be ordered. States he has been taking med for many years. Reviewed pt home med list, no orders for Naproxen, Pt not sure why it is not listed. Hospitalist paged, secure chat message received from Deidra Fabian MD, he advised to let day team rec meds in the morning. Normal [facility] NURSING PROG HNO ID: [id number] Author: Skylar Hernandez RN Service: ? Author Type: Registered Nurse Type: Nursing Progress Note Filed: 11/15/2022 10:19 AM Note Text: Other: Daily Note: 0815- Assumed care of pt. Pt is A/ox3 and is sitting at edge of bed eating. Pt has no c/o n/v, sob, chest pain, or headache. BS are present x4 and lung sounds are clear in all lobes. Pt up and ambulating unit independently with cane. Assessment per NPR. Safety check preformed and call wheeler within reach. Normal [facility] Reagin and Treponema pallidu m IgG and IgM [Interp]on 11-15-2022 SYPHILIS INTERPRETATION Cannot exclude recent Treponemal infection if specimen collected within 7-10 days after appearance of suspect lesions or 2-3 weeks after an exposure. Clinical correlation is required. Normal [facility] Comment on above: Order Comment: Speci men Type: BLOOD SPECIMEN Ordering Facility: [facility] Address: [address] [place] [address] Performed By: #### 7 3752-8 #### [facility] CLIA [id number] [address] [place] [address] [place] T. pallidum IgG+IgM IA Ql (S) Non-Reactive Normal Nonreactive [facility] Comment on above: Order Comment: Speci men Type: BLOOD SPECIMEN Ordering Facility: [facility] Address: [address] [place] [address] Performed By: #### 7 3752-8 #### [facility] CLIA [id number] [address] [place] [address] [place] Vit B12 SerPl-ncon 022 Cobalamin (Vitamin B12) [Mass/Vol] 981 pg/mL Normal 232-1245 [facility] Comment on above: Order Comment: Speci men Type: BLOOD SPECIMEN Ordering Facility: [facility] Address: [address] [place] [address] Performed By: #### 2 4323-8, 1988-03 #### [facility] CLIA [id number] [address] [place] [address] [place] CBC panel Auto (Bld)on 11-14 Erythrocyte distribution width (RBC) [Ratio] 12.3 % Normal 11.5-15.0 [facility] Comment on above: Order Comment: Speci men Type: BLOOD SPECIMENOrdering Facility: [facility] Address: [address] [place] [address] Performed By: #### 5 8410-2 ####[facility]ORY[facility] [id number] [address] Hematocrit (Bld) [Volume fraction] 43.3 % Normal 39.0-51.0 [facility] Comment on above: Order Comment: Speci men Type: BLOOD SPECIMENOrdering Facility: [facility] Address: [address] [place] [address] Performed By: #### 5 8410-2 ####[facility]ATORYCLIA [id number] [address] Hemoglobin (Bld) [Mass/Vol] 14.7 g/dL Normal 13.0-17.0 [facility] Comment on above: Order Comment: Speci men Type: BLOOD SPECIMENOrdering Facility: [facility] Address: [address] [place] [address] Performed By: #### 5 8410-2 ####[facility]ATORYCLIA [id number] [address] MCH (RBC) [Entitic mass] 32.7 pg Normal 26.0-34.0 [facility] Comment on above: Order Comment: Speci men Type: BLOOD SPECIMENOrdering Facility: [facility] Address: [address] [place] [address] Performed By: #### 5 8410-2 ####[facility]ATORYCLIA [id number] [address] MCHC (RBC) [Mass/Vol] 33.9 g/dL Normal 30.5-36.0 [facility] Comment on above: Order Comment: Speci men Type: BLOOD SPECIMENOrdering Facility: [facility] Address: [address] [place] [address] Performed By: #### 5 8410-2 ####[facility]ATORYCLIA [id number] [address] MCV (RBC) [Entitic vol] 96.4 fL Normal 80.0-100.0 [facility] Comment on above: Order Comment: Speci men Type: BLOOD SPECIMENOrdering Facility: [facility] Address: [address] [place] [address] Performed By: #### 5 8410-2 ####[facility] LABORATORYCLIA [id number] [place] [address] [place] Nucleated RBC (Bld) [#/Vol] 10*3/uL Normal <0.01 [facility] Comment on above: Order Comment: Speci men Type: BLOOD SPECIMENOrdering Facility: [facility] Address: [address] [place] [address] Performed By: #### 5 8410-2 ####[facility]ORATORYCLIA [id number] [place] [address] [place] Platelet mean volume (Bld) [Entitic vol] 9.5 fL Normal 9.0-12.7 [facility] Comment on above: Order Comment: Speci men Type: BLOOD SPECIMENOrdering Facility: [facility] Address: [address] [place] [address] Performed By: #### 5 8410-2 ####[facility]ORATORYCLIA [id number] [address] [place] Platelets (Bld) [#/Vol] 230 10*3/uL Normal 150-400 [facility] Comment on above: Order Comment: Speci men Type: BLOOD SPECIMENOrdering Facility: [facility] Address: [address] [place] [address] Performed By: #### 5 8410-2 ####[facility] LABORATORYCLIA [id number] [place] [address] [place] RBC (Bld) [#/Vol] 4.49 10*6/uL Normal 4.20-6.00 [facility] Comment on above: Order Comment: Speci men Type: BLOOD SPECIMENOrdering Facility: [facility] Address: [address] [place] [address] Performed By: #### 5 8410-2 ####[facility] LABORATORYCLIA [id number] [address] [place] WBC (Bld) [#/Vol] 6.14 10*3/uL Normal 3.70-11.00 [facility] Comment on above: Order Comment: Speci men Type: BLOOD SPECIMENOrdering Facility: [facility] Address: [place] [address] Performed By: #### 5 8410-2 ####[facility] LABORATORYCLIA [id number] [place] [address] [place] CNDSon 11-14-2022 CNDS HNO ID: [id number] Author: Kaitlin Andre DO Service: Hospital Medicine Author Type: Physician Type: Discharge Summary Filed: 11/18/2022 10:54 PM Note Text: DISCHARGE SUMMARY PATIENT NAME: Miroslava Peralta ADMISSION DATE: 11/11/2022 DISCHARGE DATE: 11/14/2022 ATTENDING PHYSICIAN: No att. providers found Code Status: Not on file Highest Readmission Risk Score: 13 The 30 day readmissions risk score is derived from an internally validated risk model which evaluates patient level characteristics, utilization history, medication orders and lab results up until the day of discharge. Patients with a score of 40 or above are considered highest risk for readmission. Specific patient level drivers will be listed at the bottom of the summary. CONSULTING TEAMS DURING HOSPITALIZATION: Treatment Team: Consulting: Theresa Del Toro MD REASON FOR HOSPITALIZATION: diarrhea, intractable low back pain, bilateral leg weakness and difficulty ambulating over period of 7-8 months DIAGNOSIS: Principal Problem: Intractable low back pain POA: Yes Active Problems: Hypertension POA: Yes Chronic hepatitis C without hepatic coma (HCC) POA: Yes Rib fractures POA: Yes Resolved Problems: Diarrhea POA: Yes Generalized abdominal pain POA: Yes OPERATIONS DURING HOSPITALIZATION: None PROCEDURES DURING HOSPITALIZATION: EKG HOSPITAL COURSE: Miroslava Peralta is a 72 year old male presented with past medical history of hypertension, status post decompressive laminectomy in March 20, 2022 with abscess IANDD on 03/29/2022 presented to ED with complaint of diarrhea, intractable low back pain, bilateral leg weakness and difficulty ambulating over period of 7-8 months Active Problems: Intractable low back pain POA: Yes Bilateral leg weakness Difficulty ambulating -rule out cauda equina syndrome, epidural abscess, discitis, DJD, deconditioning -saddle anesthesia right > left, rectal tone decreased (checked by ED staff), general leg weakness bilaterally equally -follow up with MRI lumbar spine showed Postoperative and spondylotic changes superimposed on evelopmentally short pedicles with varying degrees of mild-moderate canal and foraminal compromise, as detailed. Reviewed MRI results with Dr. Portillo who stated benign findings . -pain control -Discussed with Dr. Portillo (patient's neurosurgeon outpatient) who stated who recommended to follow-up with MRI lumbar spine results and pain control. -ED staff discussed with neurosurgeon on-call at [facility] who recommended MRI of lumbar spine. -Patient has been accepted at [facility] for neurosurgery evaluation. Patient was transferred to [facility]. -fall precaution -PT-OT eval Diarrhea POA: Yes Generalized abdominal pain POA: Yes -Discussed with Dr. Portillo (patient's neurosurgeon outpatient) who stated the diarrhea is usually neurogenic and would likely see more constipation if the cause is neurogenic. -CT of abdomen pelvis showed no acute intra-abdominal or pelvic abnormality -Rule out infectious etiology -Ordered C. difficile and stool culture -Consulted gastroenterology Chest pain POA; Yes, likely due to rib fractures -He has eft-sided lateral chest wall pain due to rib fractures. Pain is sharp in nature 8 out of 10. -EKG showed NSR with isolated T-wave inversion in on leads 3 and aVF which was present on prior ekg from 02/23/22 -CXR showed Known LEFT anterior acute-subacute 6th through 9th rib fractures unchanged from radiographs 11/02/2022. -Troponin T negative times 3 -continue tele -pain control Rib fractures POA: Yes -Left anterior acute and subacute sixth through ninth rib fractures unchanged from radiographs November 02, 2022 otherwise no acute radiographic abnormality -Pain control and incentive spirometry Hypertension POA: Yes -Continue lisinopril and amlodipine Chronic hepatitis C without hepatic coma (HCC) POA: Yes -Patient states that he was treated for hepatitis C in the past Resolved Problems: * No resolved hospital problems. * Transitions of Care Critical Issues: Neurosurgery follow up LABS AND PROCEDURES PENDING AT DISCHARGE: No pending results. PATIENT CONDITION AT DISCHARGE: Stable DISCHARGE DISPOSITION: Acute Care Hospital Discharge Physical Exam: VITAL SIGNS: BP 147/79 Pulse 64 Temp 36.7 ?C (98.1 ?F) (Oral) Resp 18 Ht 180.3 cm (5' 11 ) Wt 96.8 kg (213 lb 4.8 oz) SpO2 96% BMI 29.75 kg/m? GENERAL: Alert, no distress, cooperative LUNGS: Lungs clear to auscultation, Good diaphragmatic excursion CARDIAC: Normal S1 and S2; no rubs, murmurs, or gallops ABDOMEN: Abdomen soft, non-tender, BS normal, No masses or organomegaly EXTREMITIES: Extremities normal, no deformities, edema, clubbing or skin discoloration. Good capillary refill., No ulcers INFORMATION PROVIDED TO PATIENT: transferred to [facility] WOUND/SURGICAL SITE CARE: None DIET: H (more content not included)... Normal [facility] CONSULTon 11-14-2022 CONSULT HNO ID: [id number] Author: Kate Yarbrough APRN.MYRA Service: Neurosurgery Author Type: Nurse Practitioner Type: Consults Filed: 11/14/2022 11:53 PM Note Text: CONSULT: NEUROSURGERY SERVICE Patient: Miroslava Peralta Room: [place] [address] SERVICE DATE: 11/14/2022 SERVICE TIME: [address] Okeefe for an opinion regarding Bilateral lower ext weakness and numbness h/o back surgery. My final recommendations will be communicated back to the requesting physician by way of shared medical record or letter via US mail PRIMARY CARE PHYSICIAN: Marbella Zaidi PA-C Assessment: Pt is a pleasant 72 year old male with hx neurogenic claudication s/p L3-L5 laminectomy 03/20/[address] Portillo. He developed post op abscess and underwent evacuation and durotomy repair 03/30/22. He reports continued mid thoracic and lumbar back pain post op with gait imbalance and circumferential numbness bilateral knees through feet similar to pre-op now with intermittent stool incontinence. - Pain predominately midline thoracic with some radiation to lumbar spine - MRI lumbar spine completed at [facility] with no evidence to suggest cauda equina - No available T-spine imaging completed - Neuromotor and sensory intact, no focal deficits MRI 11/12/22: Per radiologist, 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 Plan: - No T-spine MRI completed at [facility]. Imaging ordered, will f/u results and provide further recommendations. - Continue multimodal pain control - PT/OT - Fall precautions Further recommendations TBD after eval in AM by Neurosurgeon Subjective HPI: Pt is a pleasant 72 year old male with PMHx significant for HTN, substance abuse (opiates), and neurogenic claudication s/p L3-L5 laminectomy 03/20/[address] Portillo. He developed post op abscess and underwent evacuation and durotomy repair 03/30/22. He reports continued mid thoracic and lumbar back pain post op with gait imbalance and circumferential numbness bilateral knees through feet similar to pre-op. He reports intermittent episodes of constipation and diarrhea post op. For the last week he had multiple episodes of incontinence of diarrhea where he states it all of a sudden just came out. He denies abdominal pain, nausea, or vomiting. Does endorse intermittent urinary urgency and incontinence over last several months as well but states he can feel the urge and sensation of urinating. No saddle anesthesia. No focal weakness. 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 SKIN BIOPSY HX FAMILY HISTORY Problem Relation Age of Onset Cancer Mother breast cancer Hypertension Mother None Father father in train accident at yuni age Hypertension Sister Social History Tobacco Use Smoking status: Former Packs/day: 2.00 Years: 23.00 Pack years: 46.00 Types: Cigarettes Quit date: 11/22/1992 Years since quittin.9 Smokeless tobacco: Never Vaping Use Vaping Use: Never used Substance Use Topics Alcohol use: Not Currently Comment: quit in 1991. Drug use: No Comment: Quit drugs in . gabapentin (NEURONTIN) 300 mg capsule, Take 2 capsules by mouth three times daily for 90 days., Disp: 540 capsule, Rfl: 0 docusate sodium (COLACE) 100 mg capsule, Take 1 capsule by mouth twice daily as needed., Disp: , Rfl: psyllium (METAMUCIL) 3.4 gram packet, Take 1 Packet by mouth once daily., Disp: , Rfl: oxyCODONE IR (ROXICODONE) 5 mg immediate release tablet, Take 1 tablet by mouth every 6 hours as needed (moderate pain). Hold for hypotension or sedation or RR less than 12, Disp: , Rfl: 0 morphine 2 mg/mL syringe, Inject 0.5 mL intravenously every 4 hours as needed (severe pain) for up to 5 days. Hold for hypotension or sedation or RR less than 12, Disp: , Rfl: 0 ondansetron orally disintegrating (ZOFRAN ODT) 4 mg disintegrating tablet, Take 1 tablet by mouth every 6 hours as needed., Disp: , Rfl: ondansetron, PF, (ZOFRAN) 4 mg/2 mL soln, Inject 4 mg intravenously every 6 hours as needed., Disp: , Rfl: acetaminophen (TYLENOL) 325 mg tablet, Take 2 tablets by mouth every 6 hours as needed (mild pain or fever >100)., Disp: , Rfl: amLODIPi (more content not included)... Normal [facility] Comprehensive metabolic 2000 panelon 11-14-2022 Albumin [Mass/Vol] 3.9 g/dL Normal 3.9-4.9 [facility] Comment on above: Order Comment: Speci men Type: BLOOD SPECIMENOrdering Facility: [facility] Address: [address] [place] [address] Performed By: #### 2 4323-8 ####[facility]ORYCLIA [id number] [address] OF [facility] ALP [Catalytic activity/Vol] 73 U/L Normal 38-113 [facility] Comment on above: Order Comment: Speci men Type: BLOOD SPECIMENOrdering Facility: [facility] Address: [address] [address] Performed By: #### 2 4323-8 ####[facility]ORYCLIA [id number] [address] ALT [Catalytic activity/Vol] 10 U/L Normal 10-54 [facility] Comment on above: Order Comment: Speci men Type: BLOOD SPECIMENOrdering Facility: [facility] Address: [address] [address] Performed By: #### 2 4323-8 ####[facility] LABORATORYCLIA [id number] [address] STATES [facility] Anion gap [Moles/Vol] 4 mmol/L Low 9-18 [facility] Comment on above: Order Comment: Speci men Type: BLOOD SPECIMENOrdering Facility: [facility] Address: [address] [address] Performed By: #### 2 4323-8 ####[facility] LABORATORYCLIA [id number] [place] [address] [place] AST [Catalytic activity/Vol] 13 U/L Low 14-40 [facility] Comment on above: Order Comment: Speci men Type: BLOOD SPECIMENOrdering Facility: [facility] Address: [address] [address] Performed By: #### 2 4323-8 ####[facility] LABORATORYCLIA [id number] [place] [address] [place] Bilirubin [Mass/Vol] 0.4 mg/dL Normal 0.2-1.3 [facility] Comment on above: Order Comment: Speci men Type: BLOOD SPECIMENOrdering Facility: [facility] Address: [address] [address] Performed By: #### 2 4323-8 ####[facility] LABORATORYCLIA [id number] [address] Calcium [Mass/Vol] 9.5 mg/dL Normal 8.5-10.2 [facility] Comment on above: Order Comment: Speci men Type: BLOOD SPECIMENOrdering Facility: [facility] Address: [address] [address] Performed By: #### 2 4323-8 ####[facility] LABORATORYCLIA [id number] [address] OF [place] Chloride [Moles/Vol] 101 mmol/L Normal 97-105 [facility] Comment on above: Order Comment: Speci men Type: BLOOD SPECIMENOrdering Facility: [facility] Address: [address] [address] Performed By: #### 2 4323-8 ####[facility] LABORATORYCLIA [id number] [place] [address] [place] CO2 [Moles/Vol] 30 mmol/L Normal 22-30 [facility] Comment on above: Order Comment: Speci men Type: BLOOD SPECIMENOrdering Facility: [facility] Address: [address] [place] [address] Performed By: #### 2 4323-8 ####[facility] LABORATORYCLIA [id number] [address] STATES [facility] Creatinine [Mass/Vol] 1.02 mg/dL Normal 0.73-1.22 [facility] Comment on above: Order Comment: Speci men Type: BLOOD SPECIMENOrdering Facility: [facility] Address: [address] [place] [address] Performed By: #### 2 4323-8 ####[facility] LABORATORYCLIA [id number] [address] ESTIMATED GLOMERULAR FILTRATION RATE 78 mL/min/1.73m??? Normal >=60 [facility] Comment on above: Order Comment: Speci men Type: BLOOD SPECIMENOrdering Facility: [facility] Address: [address] [place] [address] Result Comment: Kalani mated Glomerular Filtration Rate (eGFR) is calculated using the 2020 CKD-EPI creatinine equation. This equation utilizes serum creatinine, sex, and age as parameters. The creatinine assay has traceable calibration to isotope dilution-mass spectrometry. Refer to KDIGO guidelines for clinical interpretation. In patients with unstable renal function, e.g. those with acute kidney injury, the eGFR may not accurately reflect actual GFR. Performed By: #### 2 4323-8 ####[facility] LABORATORYCLIA [id number] [address] [place] Glucose [Mass/Vol] 99 mg/dL Normal 74-99 [facility] Comment on above: Order Comment: Speci men Type: BLOOD SPECIMENOrdering Facility: [facility] Address: [address] [place] [address] Result Comment: The [place] Diabetes Association (ADA) provides guidance for cutoff values for fasting glucose and random glucose. The ADA defines fasting as no caloric intake for at least 8 hours. Fasting plasma glucose results between 100 to 125 mg/dL indicate increased risk for diabetes (prediabetes). Fasting plasma glucose results greater than or equal to 126 mg/dL meet the criteria for diagnosis of diabetes. In the absence of unequivocal hyperglycemia, results should be confirmed by repeat testing. In a patient with classic symptoms of hyperglycemia or hyperglycemic crisis, random plasma glucose results greater than or equal to 200 mg/dL meet the criteria for diagnosis of diabetes. Reference: Standards of Medical Care in Diabetes 2016, [place] Diabetes Association. Diabetes Care. 2016.39(Suppl 1). Performed By: #### 2 4323-8 ####[facility] LABORATORYCLIA [id number] [place] [address] [place] Potassium [Moles/Vol] 4.5 mmol/L Normal 3.7-5.1 [facility] Comment on above: Order Comment: Speci men Type: BLOOD SPECIMENOrdering Facility: [facility] Address: [address] [place] [address] Performed By: #### 2 4323-8 ####[facility] LABORATORYCLIA [id number] [place] [address] [place] Protein [Mass/Vol] 6.8 g/dL Normal 6.3-8.0 [facility] Comment on above: Order Comment: Betoi golden Type: BLOOD SPECIMENOrdering Facility: [facility] Address: [address] [place] [address] Performed By: #### 2 4323-8 ####[facility] LABORATORYCLIA [id number] [place] [address] [place] Sodium [Moles/Vol] 135 mmol/L Low 136-144 [facility] Comment on above: Order Comment: Betoi men Type: BLOOD SPECIMENOrdering Facility: [facility] Address: [address] [address] Performed By: #### 2 4323-8 ####[facility] LABORATORYCLIA [id number] [place] [address] [place] Urea nitrogen [Mass/Vol] 18 mg/dL Normal 9-24 [facility] Comment on above: Order Comment: Speci men Type: BLOOD SPECIMENOrdering Facility: [facility] Address: [place] [address] Performed By: #### 2 4323-8 ####[facility] LABORATORYCLIA [id number] [place] [address] [place] NURSING PROGon 11-14-2022 NURSING PROG HNO ID: [id number] Author: Mel Nazario RN Service: Nursing Author Type: Registered Nurse Type: Nursing Progress Note Filed: 11/14/2022 5:11 PM Note Text: Transfer Note: Patient transferred into room/unit PK335 in stable condition. Actions taken: No futher actions taken at this time. Will continue to monitor and check with patient. Patient Oriented to room and call light. Admission hospitalist paged for orders. [facility] NURSING PROG HNO ID: [id number] Author: Maria E Welch RN Service: Nursing Author Type: Registered Nurse Type: Nursing Progress Note Filed: 11/14/2022 3:53 PM Note Text: Other: 1547: Patient picked up by transport to go to [facility]. Update called to Candy GAMBINO on PK 3 at [facility]. [facility] THERAPY NTon 11-14-2022 THERAPY NT HNO ID: [id number] Author: ANITRA Strong Service: Occupational Therapy Author Type: Occupational Therapist Type: Therapy (PT/OT/Speech/Resp) Filed: 11/14/2022 9:08 AM Note Text: OCCUPATIONAL THERAPY MISSED VISIT SERVICE DATE: 11/14/2022 SERVICE TIME: 900 to 900 ROOM: [place] [address] Patient not seen due to Hold: Clinical Appropriateness. Patient notes state patient is being transferred to [facility] this date. Will continue to monitor patient status in the event patient transfer is delayed for occupational therapy eval. SIGNATURE: ANITRA Strong PATIENT NAME: Miroslava Peralta DATE: November 14, 2022 TIME: 9:02 AM [facility] THERAPY NT HNO ID: [id number] Author: Linda Beyer PT Service: Physical Therapy Author Type: Physical Therapist Type: Therapy (PT/OT/Speech/Resp) Filed: 11/14/2022 8:36 AM Note Text: PHYSICAL THERAPY MISSED VISIT SERVICE DATE: 11/14/2022 SERVICE TIME: 0834 to 0834 ROOM: [place] [address] Patient not seen due to Hold: Clinical Appropriateness. Notes indicate patient is being transferred to [facility] this date. Will monitor pt status and re-assess need for PT eval in case transfer is delayed. SIGNATURE: Linda Beyer, PT PATIENT NAME: Miroslava Peralta DATE: November 14, 2022 TIME: 8:35 AM Normal [facility] CBC panel Auto (Bld)on 11-13 Erythrocyte distribution width (RBC) [Ratio] 12.5 % Normal 11.5-15.0 [facility] Comment on above: Order Comment: Fernanda franks Type: BLOOD SPECIMENOrdering Facility: [facility] Address: [address] [place] [address] Performed By: #### 5 8410-2 ####SEGAL LABORATORYCLIA [id number] [address] Hematocrit (Bld) [Volume fraction] 43.2 % Normal 39.0-51.0 [facility] Comment on above: Order Comment: Fernanda franks Type: BLOOD SPECIMENOrdering Facility: [facility] Address: [address] [place] [address] Performed By: #### 5 8410-2 ####[facility] LABORATORYCLIA [id number] [address] [place] Hemoglobin (Bld) [Mass/Vol] 14.8 g/dL Normal 13.0-17.0 [facility] Comment on above: Order Comment: Speci men Type: BLOOD SPECIMENOrdering Facility: [facility] Address: [address] [place] [address] Performed By: #### 5 8410-2 ####SEGAL LABORATORYCLIA [id number] [address] MCH (RBC) [Entitic mass] 32.7 pg Normal 26.0-34.0 [facility] Comment on above: Order Comment: Speci men Type: BLOOD SPECIMENOrdering Facility: [facility] Address: [address] [place] [address] Performed By: #### 5 8410-2 ####SEGAL LABORATORYCLIA [id number] [address] MCHC (RBC) [Mass/Vol] 34.3 g/dL Normal 30.5-36.0 [facility] Comment on above: Order Comment: Speci men Type: BLOOD SPECIMENOrdering Facility: [facility] Address: [address] [place] [address] Performed By: #### 5 8410-2 ####SEGAL LABORATORYCLIA [id number] [address] [place] MCV (RBC) [Entitic vol] 95.6 fL Normal 80.0-100.0 [facility] Comment on above: Order Comment: Speci men Type: BLOOD SPECIMENOrdering Facility: [facility] Address: [address] [place] [address] Performed By: #### 5 8410-2 ####SEGAL LABORATORYCLIA [id number] [address] [place] Nucleated RBC (Bld) [#/Vol] 10*3/uL Normal <0.01 [facility] Comment on above: Order Comment: Speci men Type: BLOOD SPECIMENOrdering Facility: [facility] Address: [address] [place] [address] Performed By: #### 5 8410-2 ####SEGAL LABORATORYCLIA [id number] [address] [place] Platelet mean volume (Bld) [Entitic vol] 9.4 fL Normal 9.0-12.7 [facility] Comment on above: Order Comment: Speci men Type: BLOOD SPECIMENOrdering Facility: [facility] Address: [address] [place] [address] Performed By: #### 5 8410-2 ####SEGAL LABORATORYCLIA [id number] [address] [place] Platelets (Bld) [#/Vol] 211 10*3/uL Normal 150-400 [facility] Comment on above: Order Comment: Speci men Type: BLOOD SPECIMENOrdering Facility: [facility] Address: [address] [place] [address] Performed By: #### 5 8410-2 ####SEGAL LABORATORYCLIA [id number] [address] [place] RBC (Bld) [#/Vol] 4.52 10*6/uL Normal 4.20-6.00 [facility] Comment on above: Order Comment: Fernanda franks Type: BLOOD SPECIMENOrdering Facility: [facility] Address: [address] [place] [address] Performed By: #### 5 8410-2 ####[facility] LABORATORYCLIA [id number] [address] [place] WBC (Bld) [#/Vol] 5.45 10*3/uL Normal 3.70-11.00 [facility] Comment on above: Order Comment: Fernanda franks Type: BLOOD SPECIMENOrdering Facility: [facility] Address: [address] [place] [address] Performed By: #### 5 8410-2 ####SEGAL LABORATORYCLIA [id number] [address] CELIAC SCREENon 11-13-2022 GLIAD DEAMIDATED IGA QUAL Negative Normal Negative, Test not Indicated [facility] Comment on above: Order Comment: Fernanda franks Type: BLOOD SPECIMENOrdering Facility: [facility] Address: [address] [place] [address] Result Comment: This is used as an aid in diagnosis of celiac disease. Clinical correlation is required. The following results were obtained with an AlterG QUANTA Lite Gliadin IgA GAETANO Gliadin. Gliadin IgA values obtained with different manufacturers' assay methods may not be used interchangeably. The magnitude of the reported IgA levels cannot be correlated to an endpoint titer. Performed By: #### L [id number] ####[facility] LABCLIA [id number] [facility] [id number] [place] Gliadin peptide IgA Qn (S) 2 Units Normal <20 [facility] Comment on above: Order Comment: [facility] Type: BLOOD SPECIMENOrdering Facility: [facility] Address: [address] [place] [address] Performed By: #### L [id number] ####[facility] LABCLIA [id number] [place] [address] [place] INTERPRETATION No serological evide nce of celiac disease, however, if celiac disease is clinically suspected and patient is not on gluten-free diet, histological diagnosis may be considered. HLA testing may help with risk assessment. Normal [facility] Comment on above: Order Comment: [facility] Type: BLOOD SPECIMENOrdering Facility: [facility] Address: [address] [place] [address] Performed By: #### L [id number] ####[facility] LABCLIA [id number] [address] [place] TRANSGLUTAMINASE IGA QUAL Negative Normal Negative, Test not Indicated [facility] Comment on above: Order Comment: [facility] Type: BLOOD SPECIMENOrdering Facility: [facility] Address: [address] [place] [address] Result Comment: The following results were obtained with the AlterG QAUNTA Lite h-tTG IgA GAETANO. h-tTG IgA values obtained with different manufacturers' assay methods may not be used interchangeable. The magnitude of the reported IgA levels cannot be correlated to an endpoint titer. This is used as an aid in diagnosis of celiac disease. Clinical correlation is required. Performed By: #### L [id number] ####[facility] LABCLIA [id number] [address] [place] tTG IgA Qn (S) 4 Units Normal <20 [facility] Comment on above: Order Comment: [facility] Type: BLOOD SPECIMENOrdering Facility: [facility] Address: [address] [place] [address] Performed By: #### L [id number] ####[facility] LABCLIA [id number] [address] [place] CONSULTon 11-13-2022 CONSULT HNO ID: [id number] Author: Tha Marquis MD Service: Gastroenterology Author Type: Physician Type: Consults Filed: 11/13/2022 11:52 AM Note Text: GASTROENTEROLOGY CONSULT NOTE PATIENT NAME: Miroslava Peralta SERVICE DATE: November 13, 2022 SERVICE TIME: 8:38 AM PRIMARY CARE PHYSICIAN: Marbella Zaidi PA-C ATTENDING PHYSICIAN: Bharati Andre DO REASON FOR ADMISSION: Intractable back pain REASON FOR CONSULTATION: Diarrhea, abdominal pain HPI: This is a 72 year old male with a past medical history significant for HTN, s/p decompressive laminectomy complicated by abscess requiring I+D who presents with intractable low back pain, BLE weakness, worsening diarrhea. CT A/P was unremarkable. Labs fairly unremarkable. He is being transferred to [facility] for neurosurgery evaluation - awaiting a bed. He reports an 8 month hx of diarrhea with initially 1-2 loose stools daily. Over the last several days he has noted a formed BM once daily then subsequent stool leakage several times daily having to wear a diaper. No nocturnal stools. No BRB, melena. Has noted some intermittent lower abdominal pain over the last 4-5 weeks. No N/V. Intermittent bloating. No F/C. Rare heartburn. No dysphagia. Has lost 7 lbs recently. Was using Ibuprofen daily. No recent antibiotics, travel, sick contacts. Has had urinary incontinence and BLE weakness, numbness. Recently fell and broke his left ribs (a couple of weeks ago) and has been using Oxycodone for pain. 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 SKIN BIOPSY HX MEDICATIONS: Prior to Admission Medications: amLODIPine (NORVASC) 10 mg tablet, Take 1 tablet by mouth once daily. (Patient taking differently: Take 10 mg by mouth daily at bedtime.), Disp: 90 tablet, Rfl: 1, 11/10/2022 gabapentin (NEURONTIN) 300 mg capsule, Take 2 capsules by mouth three times daily for 90 days., Disp: 540 capsule, Rfl: 0, 11/11/2022 traZODone (DESYREL) 150 mg tablet, Take 1 tablet by mouth daily at bedtime., Disp: 90 tablet, Rfl: 1, 11/11/2022 lisinopril (ZESTRIL, PRINIVIL) 20 mg tablet, Take 1 tablet by mouth once daily., Disp: 90 tablet, Rfl: 1, 11/11/2022 docusate sodium (COLACE) 100 mg capsule, Take 1 capsule by mouth twice daily., Disp: 20 capsule, Rfl: 0, 11/11/2022 tamsulosin (FLOMAX) 0.4 mg, Take 1 capsule by mouth daily at bedtime. (Patient not taking: Reported on 11/12/2022), Disp: 30 capsule, Rfl: 5, Not Taking omega-3 fatty acids/vitamin e(FISH OIL 1,000 MG CAP), Take 1 capsule by mouth once daily., Disp: , Rfl: 0 Current Hospital Medications: Current Facility-Administered Medications Medication Dose Route Frequency gabapentin 600 mg cap(s) (NEURONTIN) 600 mg ORAL TID lisinopril 20 mg tab(s) (ZESTRIL, PRINIVIL) 20 mg ORAL DAILY amLODIPine 10 mg tab(s) (NORVASC) 10 mg ORAL AT BEDTIME docusate sodium 100 mg cap(s) (COLACE) 100 mg ORAL BID PRN traZODone (DESYREL) tab(s) 150 mg 150 mg ORAL AT BEDTIME NaCl 0.9% iv flush bag 20 mL INTRAVENOUS PRN ondansetron orally disintegrating 4 mg tab(s) (ZOFRAN ODT) 4 mg ORAL q 6 H PRN Or ondansetron (PF) 4 mg injection (ZOFRAN) 4 mg INTRAVENOUS q 6 H PRN acetaminophen 650 mg tab(s) (TYLENOL) 650 mg ORAL q 6 H PRN oxyCODONE IR 5 mg tab(s) (ROXICODONE) 5 mg ORAL q 6 H PRN lidocaine 4 % 1 Patch (SALONPAS) 1 Patch TRANSDERMAL DAILY AT 9 PM And lidocaine patch - REMOVE OTHER DAILY And lidocaine - VERIFY PATCH OTHER q 8 H morphine 1 mg injection 1 mg INTRAVENOUS q 4 H PRN FAMILY HISTORY: No GI malignancies or disorders SOCIAL HISTORY: Alcohol use: Denies Tobacco use: Ex-smoker: quit in 1992 PHYSICAL EXAM: Patient Vitals for the past 24 hrs: BP Temp Temp src Pulse Resp SpO2 Height Weight 11/13/22 0822 124/76 36.7 ?C (98.1 ?F) Oral 70 16 94 % -- -- 11/13/22 0501 115/69 36.7 ?C (98.1 ?F) Oral 68 16 96 % -- -- 11/13/22 0056 130/84 36.7 ?C (98.1 ?F) Oral 85 12 94 % -- -- 11/12/22 2020 163/85 36.9 ?C (98.4 ?F) Oral 76 18 97 % -- -- 11/12/22 1432 172/96 36.7 ?C (98.1 ?F) Oral 75 1 (more content not included)... Normal [facility] Comprehensive metabolic 2000 panelon 11-13-2022 Albumin [Mass/Vol] 3.9 g/dL Normal 3.9-4.9 [facility] Comment on above: Order Comment: Speci men Type: BLOOD SPECIMENOrdering Facility: [facility] Address: [address] [place] [address] Performed By: #### 3 016-3, 82125-2, CHASE ####[facility] LABORATORYCLIA [id number] [address] [facility] ALP [Catalytic activity/Vol] 70 U/L Normal 38-113 [facility] Comment on above: Order Comment: Speci men Type: BLOOD SPECIMENOrdering Facility: [facility] Address: [address] [place] [address] Performed By: #### 3 016-3, , CHASE ####SEGAL LABORATORYCLIA [id number] [place] [address] [place] ALT [Catalytic activity/Vol] 11 U/L Normal 10-54 [facility] Comment on above: Order Comment: Speci men Type: BLOOD SPECIMENOrdering Facility: [facility] Address: [address] [place] [address] Performed By: #### 3 016-3, , CHASE ####SEGAL LABORATORYCLIA [id number] [place] [address] [place] Anion gap [Moles/Vol] 7 mmol/L Low 9-18 [facility] Comment on above: Order Comment: Speci men Type: BLOOD SPECIMENOrdering Facility: [facility] Address: [address] [place] [address] Performed By: #### 3 016-3, , CHASE ####SEGAL LABORATORYCLIA [id number] [address] [place] AST [Catalytic activity/Vol] 14 U/L Normal 14-40 [facility] Comment on above: Order Comment: Speci men Type: BLOOD SPECIMENOrdering Facility: [facility] Address: [address] [place] [address] Performed By: #### 3 016-3, , CHASE ####SEGAL LABORATORYCLIA [id number] [place] [address] [place] Bilirubin [Mass/Vol] 0.4 mg/dL Normal 0.2-1.3 [facility] Comment on above: Order Comment: Speci men Type: BLOOD SPECIMENOrdering Facility: [facility] Address: [address] [place] [address] Performed By: #### 3 016-3, , CHASE ####SEGAL LABORATORYCLIA [id number] [address] [place] Calcium [Mass/Vol] 9.5 mg/dL Normal 8.5-10.2 [facility] Comment on above: Order Comment: Speci men Type: BLOOD SPECIMENOrdering Facility: [facility] Address: [address] [place] [address] Performed By: #### 3 016-3, 95547-2, CHASE ####SEGAL LABORATORYCLIA [id number] [place] [address] [place] Chloride [Moles/Vol] 102 mmol/L Normal 97-105 [facility] Comment on above: Order Comment: Speci men Type: BLOOD SPECIMENOrdering Facility: [facility] Address: [address] [place] [address] Performed By: #### 3 016-3, 77120-0, CHASE ####SEGAL LABORATORYCLIA [id number] [place] [address] [place] CO2 [Moles/Vol] 30 mmol/L Normal 22-30 [facility] Comment on above: Order Comment: Speci men Type: BLOOD SPECIMENOrdering Facility: [facility] Address: [address] [place] [address] Performed By: #### 3 016-3, 66959-9, CHASE ####SEGAL LABORATORYCLIA [id number] [place] [address] [place] Creatinine [Mass/Vol] 1.10 mg/dL Normal 0.73-1.22 [facility] Comment on above: Order Comment: Speci men Type: BLOOD SPECIMENOrdering Facility: [facility] Address: [address] [place] [address] Performed By: #### 3 016-3, 27229-7, CHASE ####SEGAL LABORATORYCLIA [id number] [place] [address] [place] ESTIMATED GLOMERULAR FILTRATION RATE 71 mL/min/1.73m??? Normal >=60 [facility] Comment on above: Order Comment: Speci men Type: BLOOD SPECIMENOrdering Facility: [facility] Address: [address] [place] [address] Result Comment: Kalani mated Glomerular Filtration Rate (eGFR) is calculated using the 2020 CKD-EPI creatinine equation. This equation utilizes serum creatinine, sex, and age as parameters. The creatinine assay has traceable calibration to isotope dilution-mass spectrometry. Refer to KDIGO guidelines for clinical interpretation. In patients with unstable renal function, e.g. those with acute kidney injury, the eGFR may not accurately reflect actual GFR. Performed By: #### 3 016-3, 04060-5, CHASE ####SEGAL LABORATORYCLIA [id number] [place] [address] [place] Glucose [Mass/Vol] 100 mg/dL High 74-99 [facility] Comment on above: Order Comment: Fernanda franks Type: BLOOD SPECIMENOrdering Facility: [facility] Address: [address] [place] [address] Result Comment: The [place] Diabetes Association (ADA) provides guidance for cutoff values for fasting glucose and random glucose. The ADA defines fasting as no caloric intake for at least 8 hours. Fasting plasma glucose results between 100 to 125 mg/dL indicate increased risk for diabetes (prediabetes). Fasting plasma glucose results greater than or equal to 126 mg/dL meet the criteria for diagnosis of diabetes. In the absence of unequivocal hyperglycemia, results should be confirmed by repeat testing. In a patient with classic symptoms of hyperglycemia or hyperglycemic crisis, random plasma glucose results greater than or equal to 200 mg/dL meet the criteria for diagnosis of diabetes. Reference: Standards of Medical Care in Diabetes 2016, [place] Diabetes Association. Diabetes Care. 2016.39(Suppl 1). Performed By: #### 3 016-3, 27562-7, CHASE ####SEGAL LABORATORYCLIA [id number] [place] [address] [place] Potassium [Moles/Vol] 4.6 mmol/L Normal 3.7-5.1 [facility] Comment on above: Order Comment: Fernanda franks Type: BLOOD SPECIMENOrdering Facility: [facility] Address: [address] [address] Performed By: #### 3 016-3, 98363-7, CHASE ####SEGAL LABORATORYCLIA [id number] [place] [address] [place] Protein [Mass/Vol] 6.7 g/dL Normal 6.3-8.0 [facility] Comment on above: Order Comment: Fernanda franks Type: BLOOD SPECIMENOrdering Facility: [facility] Address: [address] [place] [address] Performed By: #### 3 016-3, 44601-9, CHASE ####SEGAL LABORATORYCLIA [id number] [place] [address] [place] Sodium [Moles/Vol] 139 mmol/L Normal 136-144 [facility] Comment on above: Order Comment: Speci men Type: BLOOD SPECIMENOrdering Facility: [facility] Address: [address] [place] [address] Performed By: #### 3 016-3, 86107-1, CHASE ####SEGAL LABORATORYCLIA [id number] [place] [address] [place] Urea nitrogen [Mass/Vol] 16 mg/dL Normal 9-24 [facility] Comment on above: Order Comment: Speci men Type: BLOOD SPECIMENOrdering Facility: [facility] Address: [address] [place] [address] Performed By: #### 3 016-3, 46118-2, CHASE ####SEGAL LABORATORYCLIA [id number] [place] [address] [place] IgA SerPl-mCncon 11-13-2022 IgA [Mass/Vol] 129 mg/dL Normal 70-400 [facility] Comment on above: Order Comment: Speci men Type: BLOOD SPECIMENOrdering Facility: [facility] Address: [address] [place] [address] Performed By: #### 2 458-8 ####[facility] LABCLIA [id number] [facility] [id number] [address] [place] TROPONIN Ton 11-13-2022 Troponin T.cardiac [Mass/Vol] ug/L Normal 0.000-0.029 [facility] Comment on above: Order Comment: Speci men Type: BLOOD SPECIMENOrdering Facility: [facility] Address: [address] [place] [address] Performed By: #### 3 016-3, 12293-8, CHASE ####SEGAL LABORATORYCLIA [id number] [place] [address] [place] TSH SerPl-aCncon 11-13-2022 TSH Qn 1.880 m[IU]/L Normal 0.270-4.200 [facility] Comment on above: Order Comment: Speci men Type: BLOOD SPECIMENOrdering Facility: [facility] Address: [place] [address] Performed By: #### 3 016-3, 87861-9, CHASE ####[facility] LABORATORYCLIA [id number] [place] [address] [facility] ALLIED HEALTHon 11-12-2022 ALLIED HEALTH HNO ID: [id number] Author: Chaplain Mary Service: Spiritual Care Author Type: Pipe Coverer And Insulator Type: Allied Health Filed: 11/12/2022 8:08 PM Note Text: SPIRITUAL CARE PROGRESS NOTE SERVICE DATE: 11/12/2022 SERVICE TIME: 7:19-7:40pm This system operator was welcomed in heartily by the patient to provide spiritual care. Patient spoke about his recent physical issues. A lack of local family support was identified. Patient had a spiritual dialogue with this system operator, pointedly a psotive demeanor in regard to what God may be doing in his life right now. At the request of the patient, this system operator prayed for healing for the patient and for spiritual growth for him. To contact the Spiritual Care Department: Please call [phone]. SIGNATURE: Chaplain Mary PATIENT NAME: Miroslava Peralta DATE: November 12, 2022 TIME: 8:04 PM PAGER/CONTACT #: [phone] [facility] HNO ID: [id number] Author: LAINEY Kaye Service: Radiology Author Type: Pharmacy Technology Instructor Type: Allied Health Filed: 11/12/2022 5:56 PM Note Text: Radiology Service Progress Note PATIENT NAME: Miroslava Peralta DATE OF SERVICE: November 12, 2022 TIME: 5:55 PM PATIENT IDENTITY VERIFICATION COMPLETED USING TWO (2) IDENTIFIERS: Name and Date of confirmed by patient verbally and Name and Date of confirmed by identification band. FALL SCREENING: Has the patient had 2 falls in the last year or 1 fall with injury or currently using an Ambulatory Assistive Device (Walker, Cane, Wheelchair, Crutches, etc.)? Inpatient: Screened on floor PATIENT GENDER DATA: Male PATIENT RELEVANT IMPLANT DATA REVIEWED: Yes RADIOLOGY DEPARTMENT: MR; Exam(s) Completed: Spine: Lumbar spine PERIPHERAL IV DATA: Not applicable SIGNED BY: ANA ROSA Jaramillo November 12, 2022 5:55 PM [facility] HNO ID: [id number] Author: RT Tika(R) Service: Radiology Author Type: Pharmacy Technology Instructor Type: Allied Health Filed: 11/12/2022 5:14 PM Note Text: Radiology Service Progress Note PATIENT NAME: Miroslava Peralta DATE OF SERVICE: November 12, 2022 TIME: 5:13 PM PATIENT IDENTITY VERIFICATION COMPLETED USING TWO (2) IDENTIFIERS: Name and Date of confirmed by patient verbally and Name and Date of confirmed by identification band. FALL SCREENING: Has the patient had 2 falls in the last year or 1 fall with injury or currently using an Ambulatory Assistive Device (Walker, Cane, Wheelchair, Crutches, etc.)? Inpatient: Screened on floor PATIENT GENDER DATA: Male PATIENT RELEVANT IMPLANT DATA REVIEWED: Not Applicable RADIOLOGY DEPARTMENT: General X-ray: Exam(s) Completed: Chest X-Ray PERIPHERAL IV DATA: Not applicable SIGNED BY: RT Tika(R) November 12, 2022 5:13 PM [facility] Bacteria Bld Culton 11-12-20 22 Bacteria identified Cx Nom (Bld) CULTURE, BLOOD: No growth 5 days Normal [facility] Comment on above: Performed By: #### 6 00-7 ####[facility] LABCLIA [id number] [place] [address] [place] Bacteria identified Cx Nom (Bld) CULTURE, BLOOD: No growth 5 days Normal [facility] Comment on above: Performed By: #### 6 00-7 ####[facility] LABCLIA [id number] [place] [address] [place] CK TOTAL AND CK-MBon 022 CK [Catalytic activity/Vol] 141 U/L Normal 51-298 [facility] Comment on above: Order Comment: Speci men Type: BLOOD SPECIMEN Ordering Facility: [facility] Address: [address] [address] Performed By: #### T NT #### [facility] CLIA [id number] [address] CK.MB [Mass/Vol] 4.6 ng/mL Normal <7.8 [facility] Comment on above: Order Comment: Speci men Type: BLOOD SPECIMEN Ordering Facility: [facility] Address: [address] [address] Performed By: #### T NT #### [facility] CLIA [id number] [address] CK.MB [Ratio] 330 {ratio} Normal <=4.0 [facility] Comment on above: Order Comment: Speci men Type: BLOOD SPECIMEN Ordering Facility: [facility] Address: [address] [place] [address] Performed By: #### T NT #### [facility] CLIA [id number] [address] CNPNery 11-12-2022 CNPN Telephone (FVPRAD) MIROSLAVA PERALTA ([id number]) 1950 [address]* Date Time Provider Department 11/12/22 DEANN DOMÍNGUEZ During your visit today, we recorded the following information about you: Deann Domínguez MD 11/12/2022 7:39 AM Signed Call from [facility], 72 yo male with remote decompression laminectomy by Dr. Portillo c/b abscess at incision. Patient had healed well, and about 2 months ago began having diarrhea stools with fecal incontinence, requiring adult diapers. Since then has developed mild LE weakness. Spoke with friends who encouraged him to seek ER care tonight. Exam in ER with decreased rectal tone, mild saddle paresthesias. PVR showed 340 mL retained urine. ED spoke with Neurosurgery Dr. Claudio who asked for T spine and LS spine MRIs and transfer to [facility] for ongoing evaluation. Deann Domínguez MD 11/11/22 Allergies As of Date: 11/12/2022 Noted Allergy Reaction CARDIZEM (DILTIAZEM HCL) 03/04/2011 14 - Other: See Comments Comments: panic attack DIOVAN (VALSARTAN) 09/29/2010 8 - GI Upset Comments: Caused nausea HYZAAR (LOSARTAN-HYDROCHLOROTHIAZ* 03/04/2011 14 - Other: See Comments Comments: Mood change LOPRESSOR (METOPROLOL TARTRATE) 03/22/2018 14 - Other: See Comments Comments: no energy, wiped pt out Date Reviewed: 11/11/2022 Reviewed by: Abigail Glass RN - Fully Assessed Reason for Visit: Hospital To Hospital [[id number]] Prescriptions as of 11/12/2022 - amLODIPine (NORVASC) 10 mg tablet Take 1 tablet by mouth once daily. - gabapentin (NEURONTIN) 300 mg capsule Take 2 capsules by mouth three times daily for 90 days. - traZODone (DESYREL) 150 mg tablet Take 1 tablet by mouth daily at bedtime. - lisinopril (ZESTRIL, PRINIVIL) 20 mg tablet Take 1 tablet by mouth once daily. - tamsulosin (FLOMAX) 0.4 mg Take 1 capsule by mouth daily at bedtime. - docusate sodium (COLACE) 100 mg capsule Take 1 capsule by mouth twice daily. - omega-3 fatty acids/vitamin e(FISH OIL 1,000 MG CAP) Take by mouth. Facility-Administered Medications as of 11/12/2022 - iv contrast (radiology procedure) Problem List As Of Date 11/12/2022 Noted Resolved Diarrhea [R19.7] 07/31/2010 06/16/2019 Hypertension [I10] 07/31/2010 Sleeping difficulty [G47.9] 09/29/2010 Anxiety [F41.9] 09/29/2010 03/22/2022 Impaired fasting blood sugar [R73.01] 10/02/2010 03/22/2022 S/P hip replacement [Z96.649] 08/07/2014 Shoulder pain, right [M25.511] 09/04/2014 03/22/2022 Primary localized osteoarthrosis of shoulder re*12/12/2014 03/22/2022 S/P shoulder joint replacement [Z96.619] 02/21/2015 Chronic hepatitis C without hepatic coma (HCC) *01/05/2019 Chronic bilateral low back pain without sciatic*12/18/2020 03/22/2022 MGUS (monoclonal gammopathy of unknown signific*03/15/2021 Numbness and tingling of foot [R20.0, R20.2] 07/20/2021 03/22/2022 Former smoker [Z87.891] 02/23/2022 Neurogenic claudication (HCC) [G95.19] 03/20/2022 Obesity, Class I, BMI 30-34.9 [E66.9] 03/20/2022 S/P laminectomy [Z98.890] 03/20/2022 Post-op pain [G89.18] 03/29/2022 Chronic vertigo [R42] 06/09/2022 Encounter Status:Closed by DEANN DOMÍNGUEZ on 11/12/22 Normal [facility] ECG COMPLETEon 11-12-2022 ECG COMPLETE Ventricular Rate : 7 4 BPM Atrial Rate : 74 BPM P-R Interval : 160 ms QRS Duration : 98 ms Q-T Interval : 414 ms QTC Calculation(Bazett) : 459 ms Calculated P [place] : 6 degrees Calculated R [place] : -61 degrees Calculated T Meete[place]se : -16 degrees NORMAL SINUS RHYTHM LEFT AXIS DEVIATION POSSIBLE ANTEROLATERAL INFARCT , AGE UNDETERMINED ABNORMAL ECG WHEN COMPARED WITH ECG OF 20-JUL-2014 09:01, BORDERLINE CRITERIA FOR ANTEROLATERAL INFARCT ARE NOW PRESENT Confirmed by MD DYER GREGORY () on 11/13/2022 12:52:33 PM NAME : MIROSLAVA PERALTA PID : [id number] : 1950 Gender : Male Race : ORD : [id number] Procedure Date : Nov 12 2022 17:17:01 Edit Date : Nov 13 2022 12:52:35 Diagnosis: NORMAL SINUS RHYTHM LEFT AXIS DEVIATION POSSIBLE ANTEROLATERAL INFARCT , AGE UNDETERMINED ABNORMAL ECG WHEN COMPARED WITH ECG OF 20-JUL-2014 09:01, BORDERLINE CRITERIA FOR ANTEROLATERAL INFARCT ARE NOW PRESENT Confirmed by MD DYER GREGORY () on 11/13/2022 12:52:33 PM Test Reason : Chest Pain Location : 16 : 4S 415-1 Overread By : MD DYER GREGORY Edited By : MD DYER GREGORY Referred By : , Acquired by : [id number], [facility] ED NOTEon 11-12-2022 ED NOTE HNO ID: [id number] Author: Rosie Shipman RN Service: ? Author Type: Registered Nurse Type: ED Notes Filed: 11/12/2022 1:20 PM Note Text: Pt informed of plan for MRI. [facility] ED NOTE HNO ID: [id number] Author: Rosie Shipman RN Service: ? Author Type: Registered Nurse Type: ED Notes Filed: 11/12/2022 1:01 PM Note Text: Pt resting with eyes closed, respirations even and regular. [facility] ED NOTE HNO ID: [id number] Author: Rosie Shipman RN Service: ? Author Type: Registered Nurse Type: ED Notes Filed: 11/12/2022 10:56 AM Note Text: Updated pt on wait for bed assignment. Pt requesting something for his anxiety. Will notify provider. [facility] ED NOTE HNO ID: [id number] Author: Rosie Shipman RN Service: ? Author Type: Registered Nurse Type: ED Notes Filed: 11/12/2022 7:34 AM Note Text: Pt provided with breakfast tray. Pt states pain well controlled. Updated on wait for bed at [facility]. Pt denies any needs at this time. [facility] ED NOTE HNO ID: [id number] Author: Soni Linder RN Service: ? Author Type: Registered Nurse Type: ED Notes Filed: 11/12/2022 4:18 AM Note Text: Patient sleeping, no complaints. [facility] ED PROV NOTEon 11-12-2022 ED PROV NOTE HNO ID: [id number] Author: Binh Murdock MD Service: Emergency Medicine Author Type: Physician Type: ED Provider Notes Filed: 11/12/2022 12:50 PM Note Text: ED CONTINUATION OF CARE NOTE Code Status: Full Code Assumed care from: Devan Presentation / Findings / Interventions / Plan / Items to Follow Up: Patient signed out to me on the morning of 11/12/2022. Briefly the patient has had a long history of spinal issues and needed to be transferred for neurosurgery consultation. It was asked that if he was not transferred that MRI be ordered. I have ordered an MRI on a nonemergent basis at this time. Given the prolonged transfer time and the expectation that a bed will not be available soon I have elected to admit the patient at this time. I spoke to the hospitalist service. Patient will be accepted to the care of Dr. Andre at this time pending transfer. Clinical Impressions as of 11/12/22 1246 Urinary retention Constipation, unspecified constipation type Overflow incontinence Weakness of both lower extremities S/P laminectomy SIGNATURE: Binh Murdock MD PATIENT NAME: Miroslava Peralta DATE: November 12, 2022 TIME: 12:46 PM PAGER/CONTACT #: BINH MURDOCK 11/12/22 1248 BINH MURDOCK 11/12/22 1250 Normal [facility] HISTORY PHYSICALon HISTORY PHYSICAL HNO ID: [id number] Author: Kaitlin Andre DO Service: Hospital Medicine Author Type: Physician Type: HANDP Filed: 11/12/2022 11:52 PM Note Text: DEPARTMENT OF HOSPITAL MEDICINE HISTORY AND PHYSICAL EXAM SERVICE DATE: 11/12/2022 Code Status: Not on file SERVICE TIME: 4:26 PM Primary Care Physician: Marbella Zaidi PA-C NIGHT AND WEEKEND COVERAGE: [facility] COVERAGE: Days: [phone], please page attending physician. Nights: [phone], please page [facility] Night coverage pager [phone]. Subjective CHIEF COMPLAINT: Diarrhea ongoing for 7 to 8 months worst for past 3 days, intractable low back pain, bilateral leg weakness, difficulty ambulating HPI: This is a 72 year old male with past medical history of hypertension, status post decompressive laminectomy in March 20, 2022 with abscess IANDD on 03/29/2022 presented to ED with complaint of diarrhea, intractable low back pain, bilateral leg weakness and difficulty ambulating over period of 7-8 months. Patient states that he has had diarrhea however now he is incontinent of stool and has to wear diapers. He reports water leaking and does not feel it coming on. He has ongoing diarrhea for past 3 days where he had 4-5 episodes per day. Denies any recent antibiotic use, travel history or sick contacts. He also has urinary incontinence ongoing for months. He also has intractable low back pain and upper back pain for months. Patient states that he has no feelings below his knees and bottom of his bilateral foot. He also complains of left-sided lateral chest wall pain due to rib fractures. Pain is sharp in nature 8 out of 10. ED staff discussed with neurosurgeon on-call at [facility] who recommended MRI of lumbar spine. Patient has been accepted at [facility] for neurosurgery evaluation pending bed availability. He denies any shortness of breath. Patient states that he fell about a week ago and has the floor was slippery and he fell down on his left side. Patient states that he did not have any injuries to head, neck, knees or hips. Denies any loss of consciousness. Also complains of chronic cough. Denies any nausea or vomiting. Patient does have generalized abdominal pain 10 out of 10. Patient has been active at home. Quit smoking about 42 years ago, quit alcohol about 40 years ago and quit recreational drug use in his 30s. Patient walks with his cane and walker at baseline. In ED, CT of abdomen pelvis showed no acute intra-abdominal or pelvic abnormality. 2. Acute to subacute appearing left anterolateral rib fractures. 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 SKIN BIOPSY HX FAMILY HISTORY Problem Relation Age of Onset Cancer Mother breast cancer Hypertension Mother None Father father in train accident at yuni age Hypertension Sister Social History Tobacco Use Smoking status: Former Packs/day: 2.00 Years: 23.00 Pack years: 46.00 Types: Cigarettes Quit date: 11/22/1992 Years since quittin.9 Smokeless tobacco: Never Vaping Use Vaping Use: Never used Substance Use Topics Alcohol use: Not Currently Comment: quit in 1991. Drug use: No Comment: Quit drugs in . PRIOR TO ADMISSION MEDICATIONS: amLODIPine (NORVASC) 10 mg tablet, Take 1 tablet by mouth once daily. (Patient taking differently: Take 10 mg by mouth daily at bedtime.), Disp: 90 tablet, Rfl: 1, 11/10/2022 gabapentin (NEURONTIN) 300 mg capsule, Take 2 capsules by mouth three times daily for 90 days., Disp: 540 capsule, Rfl: 0, 11/11/2022 traZODone (DESYREL) 150 mg tablet, Take 1 tablet by mouth daily at bedtime., Disp: 90 tablet, Rfl: 1, 11/11/2022 lisinopril (ZESTRIL, PRINIVIL) 20 mg tablet, Take 1 tablet by mouth once daily., Disp: 90 tablet, Rfl: 1, 11/11/2022 docusate sodium (COLACE) 100 mg capsule, Take 1 capsule by mouth twice daily., Disp: 20 capsule, Rfl: 0, 11/11/2022 tamsulosin (FLOMAX) 0.4 mg, Take 1 capsule by mouth daily at bedtime. (Patient not taking: Reported on 11/12/2022), Disp: 30 capsule, Rfl: 5, Not Taking omega-3 fatty acids/vitamin e(FISH OIL 1,000 MG CAP), Take 1 capsule by mouth once daily., Disp: , Rfl: 0 ALLERGIES Allergen Reactions Cardizem [Diltiazem* Other: See Comments panic attack Diovan [Valsartan] GI Upset Caused nausea Hyzaar [Losartan-Hy* Other: See Comments Mood (more content not included)... Normal [facility] MRI LUMBAR SPINE WO IVCONon 11-12-2022 MRI LUMBAR SPINE WO IVCON * * *Final Report* * * DATE OF EXAM: Nov 12 2022 6:18PM [facility] 0303 - MRI LUMBAR SPINE WO IVCON / PROCEDURE REASON: Low back pain, cauda equina syndrome suspected * * * * Physician Interpretation * * * * MRI LUMBAR SPINE WO IVCON CLINICAL HISTORY: Low back pain, cauda equina syndrome suspected - Cauda Equina TECHNIQUE: MRI lumbar spine routine protocol without contrast. MQ: [id number] COMPARISON: CT abdomen/pelvis 11/11/2022, MRI lumbar spine 07/21/2021 RESULT: Counting reference: Lumbosacral junction. For the purposes of this report, L4-5 is considered the level of the iliac crest and assume there are 5 lumbar-type vertebrae. Anatomic variant: None. Localizer images: Urinary bladder distention with partially imaged moderate prostatic enlargement. Small cyst in the left kidney. Alignment: Slight lumbar levocurvature. Multilevel mild to moderate intervertebral disc space narrowing. Bone marrow signal/fracture: Prior L3/L4 dorsal decompression. Patchy type I degenerative endplate changes at L4-5 eccentric to the right. No evidence of confluent abnormal marrow replacement or an acute fracture. Conus: The conus terminates at L1 and is within normal limits of caliber and morphology. Levels of relative descending cauda equina nerve root cinching due to varying degrees of canal stenosis, further detailed below. Soft tissues: Disruption of the dorsal midline soft tissue planes spanning the prior operative levels. Diffuse relative lumbar canal and foraminal narrowing on a developmental basis due to short pedicles. T10-T11: Broad-based shallow disc bulging/protrusion without cord impact. At least mild bilateral foraminal stenosis. T11-T12: Shallow disc bulging. Patent canal and foramina. T12-L1: Shallow disc bulging. Patent canal and foramina. L1-L2: Shallow disc bulging, facet and ligamentous hypertrophy; patent canal with narrowing of each subarticular zone, patent right foramen, mild left foraminal stenosis. L2-L3: Diffuse disc bulging, facet and ligamentous hypertrophy, short pedicles; mild-moderate canal stenosis with narrowing of each subarticular zone, patent foramina. L3-L4: Laminectomy changes, diffuse disc bulging, residual facet and ligamentous hypertrophy, short pedicles; moderate canal stenosis, mild-moderate bilateral foraminal stenosis. L4-L5: Laminectomy changes, diffuse disc bulging, residual facet hypertrophy, short pedicles; mild-moderate canal stenosis with asymmetric narrowing of the right subarticular zone, mild-moderate right and mild left foraminal stenosis. L5-S1: Diffuse disc bulging, facet arthropathy, ligamentous hypertrophy, short pedicles; patent canal, mild bilateral foraminal stenosis. Sacrum and iliac wings: The visualized sacrum and iliac wings are within normal limits. The presacral soft tissues are normal in appearance. IMPRESSION: 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 Anatomic Lumbar Variant: None. L4-5 is considered the level of the iliac crest and assume there are 5 lumbar-type vertebrae. Design Editor: PSCB Transcribe Date/Time: Nov 12 2022 6:42P Dictated by : BINH DON MD This examination was interpreted and the report reviewed and electronically signed by: BINH DON MD on Nov 12 2022 6:49PM EST [id number] Normal [facility] TROPONIN Ton 11-12-2022 Troponin T.cardiac [Mass/Vol] ug/L Normal 0.000-0.029 [facility] Comment on above: Order Comment: Speci men Type: BLOOD SPECIMEN Ordering Facility: [facility] Address: [address] [place], [place] [address] Performed By: #### T NT #### [facility] CLIA [id number] [address] [place] [address] [place] XR CHEST 2V FRONTAL/LATon XR CHEST 2V FRONTAL/LAT * * *Final Report* * * DATE OF EXAM: Nov 12 2022 5:09PM MDX [id number] - XR CHEST 2V FRONTAL/LAT / PROCEDURE REASON: Chest trauma, blunt * * * * Physician Interpretation * * * * EXAMINATION: CHEST RADIOGRAPH (2 VIEW FRONTAL and LATERAL) PATIENT/TECHNOLOGIST PROVIDED HISTORY: Patient states that he had some trauma to his ribs/chest and is having some chest/rib pain. CLINICAL HISTORY: 72 years old Male with Chest trauma, blunt MQ: [id number] EXAM DATE/TIME: 11/12/2022 5:09 PM COMPARISON: Radiographs 11/02/2022, CT abdomen pelvis performed earlier today RESULT: Lines, tubes, and devices: None. Lungs and pleura: Low lung volumes. No consolidation. No discernible pleural effusion or pneumothorax. Cardiomediastinal silhouette: Stable cardiomediastinal silhouette. Bones and soft tissues: Known LEFT anterior acute-subacute 6th through 9th rib fractures unchanged from radiographs 11/02/2022. Exaggerated thoracic kyphosis with multilevel spondylosis. Partially imaged RIGHT shoulder arthroplasty. IMPRESSION: Known LEFT anterior acute-subacute 6th through 9th rib fractures unchanged from radiographs 11/02/2022. Otherwise, no acute radiographic abnormality. Design Editor: AMANDA Transcribe Date/Time: Nov 12 2022 5:20P Dictated by : DOT GOLDEN DO This examination was interpreted and the report reviewed and electronically signed by: DOT GOLDEN DO on Nov 12 2022 5:27PM EST [id number] [facility] HEALTHon 11-11-2022 ALLIED HEALTH HNO ID: [id number] Author: Shonda Rao, CT Service: ? Author Type: Technologist Type: Allied Health Filed: 11/11/2022 9:33 PM Note Text: Radiology Service Progress Note DATE OF SERVICE: November 11, 2022 TIME: 9:33 PM PATIENT IDENTITY VERIFICATION COMPLETED USING TWO (2) STANDARD IDENTIFIERS: Name and Date of confirmed by patient verbally and Name and Date of confirmed by identification band. FALL SCREENING: Has the patient had 2 falls in the last year or 1 fall with injury or currently using an Ambulatory Assistive Device (Walker, Cane, Wheelchair, Crutches, etc.)? Emergency Room Patient: Screened in ED PATIENT GENDER DATA: Male PATIENT RELEVANT IMPLANT DATA REVIEWED: Not Applicable ALLERGIES: Reviewed and unchanged CONTRAST ALLERGY: NO. EXAM: CT -CONTRAST INDUCED NEPHROPATHY RISK FACTORS: Patient age > 60 years CREATININE: Creatinine Date Value Ref Range Status 11/11/2022 0.89 0.73 - 1.22 mg/dL Final 05/05/2022 0.95 0.73 - 1.22 mg/dL Final 03/29/2022 0.95 0.73 - 1.22 mg/dL Final Estimated Glomerular Filtration Rate Date Value Ref Range Status 11/11/2022 90 >=60 mL/min/1.73m? Final Comment: Estimated Glomerular Filtration Rate (eGFR) is calculated using the 2020 CKD-EPI creatinine equation. This equation utilizes serum creatinine, sex, and age as parameters. The creatinine assay has traceable calibration to isotope dilution-mass spectrometry. Refer to KDIGO guidelines for clinical interpretation. In patients with unstable renal function, e.g. those with acute kidney injury, the eGFR may not accurately reflect actual GFR. eGFR- Date Value Ref Range Status 11/04/2021 >60 Final P.O.C.T. RESULTS: POC done: Yes, See Lab Tab November 11, 2022 TREATMENT: N/A PERIPHERAL IV DATA: Inpatient - refer to LDA documentation RADIOLOGY DEPARTMENT: CT; Exam(s) Completed: Abdomen/Pelvis SIGNATURE: Shonda Rao, CT PATIENT NAME: Miroslava Peralta DATE: November 11, 2022 TIME: 9:33 PM Normal [facility] CBC W Auto Differential pane l (Bld)on 11-11-2022 Basophils (Bld) [#/Vol] 0.06 10*3/uL Normal <0.11 [facility] Comment on above: Order Comment: Speci men Type: BLOOD SPECIMENOrdering Facility: [facility] Address: [address] [place] [address] Performed By: #### 5 7021-8 ####[facility] [id number] [place] [address] [place] Basophils/100 WBC (Bld) 0.9 % Normal [facility] Comment on above: Order Comment: Betoi golden Type: BLOOD SPECIMENOrdering Facility: [facility] Address: [address] [place] [address] Performed By: #### 5 7021-8 ####[facility] [id number] [place] [address] [place] Differential cell count method Nom (Bld) Auto Normal [facility] Comment on above: Order Comment: Speci men Type: BLOOD SPECIMENOrdering Facility: [facility] Address: [address] [place] [address] Performed By: #### 5 7021-8 ####[facility] [id number] [place] [address] [place] Eosinophils (Bld) [#/Vol] 0.26 10*3/uL Normal <0.46 [facility] Comment on above: Order Comment: Speci men Type: BLOOD SPECIMENOrdering Facility: [facility] Address: [address] [place] [address] Performed By: #### 5 7021-8 ####[facility] [id number] [address] Eosinophils/100 WBC (Bld) 3.8 % Normal [facility] Comment on above: Order Comment: Speci men Type: BLOOD SPECIMENOrdering Facility: [facility] Address: [address] [place] [address] Performed By: #### 5 7021-8 ####[facility] [id number] [address] [place] Erythrocyte distribution width (RBC) [Ratio] 12.2 % Normal 11.5-15.0 [facility] Comment on above: Order Comment: Speci men Type: BLOOD SPECIMENOrdering Facility: [facility] Address: [address] [place] [address] Performed By: #### 5 7021-8 ####[facility] [id number] [address] [place] Hematocrit (Bld) [Volume fraction] 42.4 % Normal 39.0-51.0 [facility] Comment on above: Order Comment: Speci men Type: BLOOD SPECIMENOrdering Facility: [facility] Address: [address] [place] [address] Performed By: #### 5 7021-8 ####[facility] [id number] [address] [place] Hemoglobin (Bld) [Mass/Vol] 14.9 g/dL Normal 13.0-17.0 [facility] Comment on above: Order Comment: Speci men Type: BLOOD SPECIMENOrdering Facility: [facility] Address: [address] [place] [address] Performed By: #### 5 7021-8 ####[facility] [id number] [address] Immature granulocytes (Bld) [#/Vol] 10*3/uL Normal <0.10 [facility] Comment on above: Order Comment: Speci men Type: BLOOD SPECIMENOrdering Facility: [facility] Address: [address] [address] Performed By: #### 5 7021-8 ####[facility] [id number] [address] Immature granulocytes/100 WBC (Bld) 0.1 % Normal [facility] [facility] Comment on above: Order Comment: Speci men Type: BLOOD SPECIMENOrdering Facility: [facility] Address: [address] [place] [address] Performed By: #### 5 7021-8 ####[facility]ATORYCLIA [id number] [place] [address] [place] Lymphocytes (Bld) [#/Vol] 1.24 10*3/uL Normal 1.00-4.00 [facility] Comment on above: Order Comment: Speci men Type: BLOOD SPECIMENOrdering Facility: [facility] Address: [address] [place] [address] Performed By: #### 5 7021-8 ####[facility]ATORYCLIA [id number] [address] Lymphocytes/100 WBC (Bld) 18.2 % Normal [facility] Comment on above: Order Comment: Speci men Type: BLOOD SPECIMENOrdering Facility: [facility] Address: [address] [place] [address] Performed By: #### 5 7021-8 ####[facility]ORATORYCLIA [id number] [address] [place] MCH (RBC) [Entitic mass] 33.2 pg Normal 26.0-34.0 [facility] Comment on above: Order Comment: Speci men Type: BLOOD SPECIMENOrdering Facility: [facility] Address: [address] [place] [address] Performed By: #### 5 7021-8 ####[facility]ATORYCLIA [id number] [address] MCHC (RBC) [Mass/Vol] 35.1 g/dL Normal 30.5-36.0 [facility] Comment on above: Order Comment: Speci men Type: BLOOD SPECIMENOrdering Facility: [facility] Address: [address] [place] [address] Performed By: #### 5 7021-8 ####[facility]ATORYCLIA [id number] [address] MCV (RBC) [Entitic vol] 94.4 fL Normal 80.0-100.0 [facility] Comment on above: Order Comment: Speci men Type: BLOOD SPECIMENOrdering Facility: [facility] Address: [address] [place] [address] Performed By: #### 5 7021-8 ####[facility] LABORATORYCLIA [id number] [place] [address] [place] Monocytes (Bld) [#/Vol] 1.00 10*3/uL High <0.87 [facility] Comment on above: Order Comment: Speci men Type: BLOOD SPECIMENOrdering Facility: [facility] Address: [address] [place] [address] Performed By: #### 5 7021-8 ####[facility]ATORYCLIA [id number] [address] Monocytes/100 WBC (Bld) 14.6 % Normal [facility] Comment on above: Order Comment: Speci men Type: BLOOD SPECIMENOrdering Facility: [facility] Address: [address] [place] [address] Performed By: #### 5 7021-8 ####[facility] LABORATORYCLIA [id number] [place] [address] [place] Neutrophils (Bld) [#/Vol] 4.26 10*3/uL Normal 1.45-7.50 [facility] Comment on above: Order Comment: Speci men Type: BLOOD SPECIMENOrdering Facility: [facility] Address: [address] [place] [address] Performed By: #### 5 7021-8 ####[facility]ORATORYCLIA [id number] [address] Neutrophils/100 WBC (Bld) 62.4 % Normal [facility] Comment on above: Order Comment: Speci men Type: BLOOD SPECIMENOrdering Facility: [facility] Address: [address] [place] [address] Performed By: #### 5 7021-8 ####[facility] LABORATORYCLIA [id number] [place] [address] [place] Nucleated RBC (Bld) [#/Vol] 10*3/uL Normal <0.01 [facility] Comment on above: Order Comment: Speci men Type: BLOOD SPECIMENOrdering Facility: [facility] Address: [address] [place] [address] Performed By: #### 5 7021-8 ####[facility]GAL LABORATORYCLIA [id number] [address] [place] Nucleated RBC/100 WBC (Bld) [Ratio] 0.0 /100 WBC Normal [facility] Comment on above: Order Comment: Speci men Type: BLOOD SPECIMENOrdering Facility: [facility] Address: [address] [place] [address] Performed By: #### 5 7021-8 ####[facility]GAL LABORATORYCLIA [id number] [place] [address] [place] Platelet mean volume (Bld) [Entitic vol] 9.3 fL Normal 9.0-12.7 [facility] Comment on above: Order Comment: Speci men Type: BLOOD SPECIMENOrdering Facility: [facility] Address: [address] [place] [address] Performed By: #### 5 7021-8 ####SEGAL LABORATORYCLIA [id number] [place] [address] [place] Platelets (Bld) [#/Vol] 240 10*3/uL Normal 150-400 [facility] Comment on above: Order Comment: Speci men Type: BLOOD SPECIMENOrdering Facility: [facility] Address: [address] [place] [address] Performed By: #### 5 7021-8 ####SEGAL LABORATORYCLIA [id number] [place] [address] [place] RBC (Bld) [#/Vol] 4.49 10*6/uL Normal 4.20-6.00 [facility] Comment on above: Order Comment: Speci men Type: BLOOD SPECIMENOrdering Facility: [facility] Address: [facility] [place] [id number] Performed By: #### 5 7021-8 ####SEGAL LABORATORYCLIA [id number] [place] [address] [place] WBC (Bld) [#/Vol] 6.83 10*3/uL Normal 3.70-11.00 [facility] Comment on above: Order Comment: Speci men Type: BLOOD SPECIMENOrdering Facility: [facility] Address: [address] Performed By: #### 5 7021-8 ####SEGAL LABORATORYCLIA [id number] [address] [place] CT ABD/PEL W IVCONon 12-21-[address] ABD/PEL W IVCON * * *Final Report* * * DATE OF EXAM: Nov 11 2022 9:46PM [facility] 0530 - CT ABD/PEL W IVCON / PROCEDURE REASON: Abdominal pain, acute, nonlocalized * * * * Physician Interpretation * * * * EXAMINATION: CT ABD/PEL W IVCON INDICATION: Abdominal pain, acute, nonlocalized Abdominal pain, acute, nonlocalized COMPARISON: 06/13/2021 05/16/2021 TECHNIQUE: CT of the abdomen and pelvis was performed using standard technique, scanning from just above the dome of the diaphragm to the pubic symphysis. Contrast: IV: 100 ml of Omnipaque 300 : ml of CT Radiation dose: Integrated Dose-length product (DLP) for this visit = 699.99 mGy*cm. CT Dose Reduction Employed: Automated exposure control (AEC) FINDINGS: Lower Thorax: Stable less than 6 mm right lung nodule, which does not require follow-up. Liver: Left liver cyst and few too small to characterize hypodensities. Gallbladder/Biliary: Unremarkable. No biliary ductal dilatation. Spleen: Unremarkable. Pancreas: Unremarkable. Adrenals: Stable bilateral adrenal nodules, previously characterized as adenomas. Kidneys: Left renal cyst. No hydronephrosis. Vasculature: Atherosclerotic disease. No abdominal aortic aneurysm. GI Tract: No wall thickening or evidence of obstruction. Appendix is not seen. Diverticulosis. Pelvis: Streak related to right hip arthroplasty. Prostatomegaly. No bladder wall thickening. Mesentery/Peritoneum/Retrop eritoneum: No free air or fluid Lymph Nodes: No lymphadenopathy. Bones and soft tissues: Degenerative changes of the spine and left hip with prior lumbar decompression. Minimally displaced left anterolateral rib fractures, 6-9. Small right fat-containing inguinal hernia. Supervisor Reclamation (topogram) images: No additional findings. IMPRESSION: 1. No acute intra-abdominal or pelvic abnormality. 2. Acute to subacute appearing left anterolateral rib fractures. Design Editor: PSCB Transcribe Date/Time: Nov 11 2022 10:21P Dictated by : SHAVONNE BRODY MD This examination was interpreted and the report reviewed and electronically signed by: SHAVONNE BRODY MD on Nov 11 2022 10:39PM EST [id number] Normal [facility] Comprehensive metabolic 2000 panelon 11-11-2022 Albumin [Mass/Vol] 4.2 g/dL Normal 3.9-4.9 [facility] Comment on above: Order Comment: Speci men Type: BLOOD SPECIMEN Ordering Facility: [facility] Address: [address] [place] [address] Performed By: #### T NT #### [facility] CLIA [id number] [address] [place] [facility] ALP [Catalytic activity/Vol] 70 U/L Normal 38-113 [facility] Comment on above: Order Comment: Speci men Type: BLOOD SPECIMEN Ordering Facility: [facility] Address: [address] [address] Performed By: #### T NT #### [facility] CLIA [id number] [address] [place] [facility] ALT [Catalytic activity/Vol] 13 U/L Normal 10-54 [facility] Comment on above: Order Comment: Speci men Type: BLOOD SPECIMEN Ordering Facility: [facility] Address: [address] [place] [address] Performed By: #### T NT #### [facility] CLIA [id number] [address] [place] Anion gap [Moles/Vol] 10 mmol/L Normal 9-18 [facility] Comment on above: Order Comment: Speci men Type: BLOOD SPECIMEN Ordering Facility: [facility] Address: [address] [place] [address] Performed By: #### T NT #### [facility] CLIA [id number] [address] [place] AST [Catalytic activity/Vol] 20 U/L Normal 14-40 [facility] Comment on above: Order Comment: Speci men Type: BLOOD SPECIMEN Ordering Facility: [facility] Address: [address] [place] [address] Performed By: #### T NT #### [facility] CLIA [id number] [address] Bilirubin [Mass/Vol] 0.2 mg/dL Normal 0.2-1.3 [facility] Comment on above: Order Comment: Speci men Type: BLOOD SPECIMEN Ordering Facility: [facility] Address: [address] [address] Performed By: #### T NT #### [facility] CLIA [id number] [address] Calcium [Mass/Vol] 9.6 mg/dL Normal 8.5-10.2 [facility] Comment on above: Order Comment: Speci men Type: BLOOD SPECIMEN Ordering Facility: [facility] Address: [address] [place] [address] Performed By: #### T NT #### [facility] CLIA [id number] [address] [place] [address] [place] Chloride [Moles/Vol] 99 mmol/L Normal 97-105 [facility] Comment on above: Order Comment: Speci men Type: BLOOD SPECIMEN Ordering Facility: [facility] Address: [address] [place] [address] Performed By: #### T NT #### [facility] CLIA [id number] [address] [place] [address] [place] CO2 [Moles/Vol] 25 mmol/L Normal 22-30 [facility] Comment on above: Order Comment: Fernanda franks Type: BLOOD SPECIMEN Ordering Facility: [facility] Address: [address] [address] Performed By: #### T NT #### [facility] CLIA [id number] [address] Creatinine [Mass/Vol] 0.89 mg/dL Normal 0.73-1.22 [facility] Comment on above: Order Comment: Fernanda franks Type: BLOOD SPECIMEN Ordering Facility: [facility] Address: [address] [address] Performed By: #### T NT #### [facility] CLIA [id number] [address] ESTIMATED GLOMERULAR FILTRATION RATE 90 mL/min/1.73m??? Normal >=60 [facility] Comment on above: Order Comment: Fernanda franks Type: BLOOD SPECIMEN Ordering Facility: [facility] Address: [address] [place] [address] Result Comment: Kalani mated Glomerular Filtration Rate (eGFR) is calculated using the 2020 CKD-EPI creatinine equation. This equation utilizes serum creatinine, sex, and age as parameters. The creatinine assay has traceable calibration to isotope dilution-mass spectrometry. Refer to KDIGO guidelines for clinical interpretation. In patients with unstable renal function, e.g. those with acute kidney injury, the eGFR may not accurately reflect actual GFR. Performed By: #### T NT #### [facility] CLIA [id number] [address] [place] Glucose [Mass/Vol] 100 mg/dL High 74-99 [facility] Comment on above: Order Comment: Fernanda franks Type: BLOOD SPECIMEN Ordering Facility: [facility] Address: [address] [address] Result Comment: The [place] Diabetes Association (ADA) provides guidance for cutoff values for fasting glucose and random glucose. The ADA defines fasting as no caloric intake for at least 8 hours. Fasting plasma glucose results between 100 to 125 mg/dL indicate increased risk for diabetes (prediabetes). Fasting plasma glucose results greater than or equal to 126 mg/dL meet the criteria for diagnosis of diabetes. In the absence of unequivocal hyperglycemia, results should be confirmed by repeat testing. In a patient with classic symptoms of hyperglycemia or hyperglycemic crisis, random plasma glucose results greater than or equal to 200 mg/dL meet the criteria for diagnosis of diabetes. Reference: Standards of Medical Care in Diabetes 2016, [place] Diabetes Association. Diabetes Care. 2016.39(Suppl 1). Performed By: #### T NT #### [facility] CLIA [id number] [address] Potassium [Moles/Vol] 4.2 mmol/L Normal 3.7-5.1 [facility] Comment on above: Order Comment: Fernanda franks Type: BLOOD SPECIMEN Ordering Facility: [facility] Address: [address] [place] [address] Performed By: #### T NT #### [facility] CLIA [id number] [address] Protein [Mass/Vol] 7.0 g/dL Normal 6.3-8.0 [facility] Comment on above: Order Comment: Fernanda franks Type: BLOOD SPECIMEN Ordering Facility: [facility] Address: [address] [address] Performed By: #### T NT #### [facility] CLIA [id number] [address] Sodium [Moles/Vol] 134 mmol/L Low 136-144 [facility] Comment on above: Order Comment: Fernanda franks Type: BLOOD SPECIMEN Ordering Facility: [facility] Address: [address] [place] [address] Performed By: #### T NT #### [facility] CLIA [id number] [address] Urea nitrogen [Mass/Vol] 16 mg/dL Normal 9-24 [facility] Comment on above: Order Comment: Fernanda franks Type: BLOOD SPECIMEN Ordering Facility: [facility] Address: [address] [address] Performed By: #### T NT #### [facility] CLIA [id number] [address] [facility] ED PROV NOTEon 11-11-2022 ED PROV NOTE HNO ID: [id number] Author: Yanni Quezada MD Service: ? Author Type: Physician Type: ED Provider Notes Filed: 11/11/2022 10:53 PM Note Text: ED Provider Note Patient Name: Miroslava Peralta : 1950 SERVICE DATE: 11/11/22 History Patient presents with: Diarrhea: Had spinal surgery 7-8 months ago and states he had had diarrhea since 72 year old male h/o HTN, s/p decompressive laminectomy 03/20 with abscess incision 03/29 presents to ED c/o diarrhea. Pt states since surgery, he feels he is not improving. He has had persistent back pain. Over the past 2 months he has had worsening leg weakness and difficulty ambulating, uses a cane. He also has had diarrhea, states he is now incontinent of stool and has to wear diapers. He reports water leaking, does not feel it coming on. He has some formed stool as well but doesn't really feels the sensation to go. This has been going on for the past 2 months. Denies fever, chills. Family mentioned symptoms to a friend who works in orthopedics who recommended ED today. 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 SKIN BIOPSY HX FAMILY HISTORY Problem Relation Age of Onset Cancer Mother breast cancer Hypertension Mother None Father father in train accident at yuni age Hypertension Sister Social History Tobacco Use Smoking status: Former Packs/day: 2.00 Years: 23.00 Pack years: 46.00 Types: Cigarettes Quit date: 11/22/1992 Years since quittin.9 Smokeless tobacco: Never Vaping Use Vaping Use: Never used Substance and Sexual Activity Alcohol use: Not Currently Comment: quit in 1991. Drug use: No Comment: Quit drugs in ~. Sexual activity: Not on file ALLERGIES Allergen Reactions Cardizem [Diltiazem* Other: See Comments panic attack Diovan [Valsartan] GI Upset Caused nausea Hyzaar [Losartan-Hy* Other: See Comments Mood change Lopressor [Metoprol* Other: See Comments no energy, wiped pt out Review of Systems Constitutional: Negative for chills and fever. HENT: Negative. Respiratory: Negative. Cardiovascular: Negative. Gastrointestinal: Positive for constipation and diarrhea. Musculoskeletal: Positive for back pain and gait problem. Skin: Negative. Neurological: Positive for weakness. Hematological: Negative. Psychiatric/Behavioral: Negative. Physical Exam Vitals [11/11/22 1854] BP Pulse Temp Temp src Resp SpO2 Weight Height 141/96 74 36.6 ?C (97.9 ?F) Temporal 18 96 % 99.8 kg (220 lb) 1.803 m (5' 11 ) Physical Exam Vitals and nursing note reviewed. Exam conducted with a service delivery manager present. Constitutional: Appearance: Normal appearance. HENT: Head: Normocephalic and atraumatic. Mouth/Throat: Mouth: Mucous membranes are moist. Eyes: Extraocular Movements: Extraocular movements intact. Conjunctiva/sclera: Conjunctivae normal. Pupils: Pupils are equal, round, and reactive to light. Cardiovascular: Rate and Rhythm: Normal rate and regular rhythm. Pulses: Normal pulses. Heart sounds: Normal heart sounds. Pulmonary: Effort: Pulmonary effort is normal. Breath sounds: Normal breath sounds. Abdominal: Palpations: Abdomen is soft. Musculoskeletal: General: Normal range of motion. Cervical back: Normal range of motion. Skin: General: Skin is warm and dry. Neurological: Mental Status: He is alert and oriented to person, place, and time. Comments: Antalgic gait with cane. Diminished sensation in the lower extremity. Decreased rectal tone with saddle anesthesia, right greater than left. Diagnostic Testing ED Labs Ordered and Reviewed CBC + DIFF - Abnormal; Notable for the following components: Result Value Ref Range Abs Milam 1.00 (*) <0.87 k/uL All other components within normal limits Narrative: This is an appended report. These results have been appended to a previously verified report. COMP METABOLIC PANEL - Abnormal; Notable for the following components: Glucose 100 (*) 74 - 99 mg/dL Sodium 134 (*) 136 - 144 mmol/L All other components within normal limits URINALYSIS WITH MICROSCOPIC, REFLEX CULTURE - Abnormal; Notable for the following components: Bacteria Rare (*) None Seen /HPF All other components within normal limits MAGNESIUM BLD - Normal EX (more content not included)... Normal [facility] Magnesium SerPl-mCncon 11-11 Magnesium [Mass/Vol] 2.0 mg/dL Normal 1.7-2.3 [facility] Comment on above: Order Comment: Speci men Type: BLOOD SPECIMEN Ordering Facility: [facility] Address: [address] [place] [address] Performed By: #### T NT #### [facility] CLIA [id number] [address] [place] [address] SARS-CoV-2 RNA Resp Ql CORIN+p robeon 11-11-2022 SARS-CoV-2 (COVID-19) RNA CORIN+probe Ql (Resp) COVID 19 RESULT: SARS-CoV-2 (Agent of COVID-19) Not Detected by RT-PCR or equivalent method. This test has been authorized by FDA under an Emergency Use Authorization (EUA). Normal [facility] Comment on above: Performed By: #### 9 4500-6 ####[facility]ORYCLIA [id number] [place] [address] Urinalysis complete panel (U )on 11-11-2022 Bacteria LM.HPF (Urine sed) [#/Area] Rare Abnormal None Seen [facility] Comment on above: Order Comment: Speci men Type: URINE SPECIMEN Ordering Facility: [facility] Address: [address] [address] Performed By: #### 2 4356-8 #### [facility] CLIA [id number] [address] [place] [address] Bilirubin Ql (U) Negative Normal Negative [facility] Comment on above: Order Comment: Speci men Type: URINE SPECIMEN Ordering Facility: [facility] Address: [address] [address] Performed By: #### 2 4356-8 #### [facility] CLIA [id number] [address] [place] Clarity (Unsp spec) Clear Normal Clear [facility] Comment on above: Order Comment: Speci men Type: URINE SPECIMEN Ordering Facility: [facility] Address: [address] [place] [address] Performed By: #### 2 4356-8 #### [facility] CLIA [id number] [address] [place] Color (U) Yellow Normal Yellow [facility] Comment on above: Order Comment: Speci men Type: URINE SPECIMEN Ordering Facility: [facility] Address: [address] [place] [address] Performed By: #### 2 4356-8 #### [facility] CLIA [id number] [address] [place] Glucose Test strip (U) [Mass/Vol] Negative Normal Negative [facility] Comment on above: Order Comment: Speci men Type: URINE SPECIMEN Ordering Facility: [facility] Address: [address] [place] [address] Performed By: #### 2 4356-8 #### [facility] CLIA [id number] [address] [place] [address] [place] Hemoglobin Ql (U) Negative Normal Negative, Trace [facility] Comment on above: Order Comment: Speci men Type: URINE SPECIMEN Ordering Facility: [facility] Address: [address] [place] [address] Performed By: #### 2 4356-8 #### [facility] CLIA [id number] [address] [place] Ketones Ql (U) Negative Normal Negative [facility] Comment on above: Order Comment: Speci men Type: URINE SPECIMEN Ordering Facility: [facility] Address: [address] [address] Performed By: #### 2 4356-8 #### [facility] CLIA [id number] [address] [place] Leukocyte esterase Test strip Ql (U) Negative Normal Negative [facility] Comment on above: Order Comment: Speci men Type: URINE SPECIMEN Ordering Facility: [facility] Address: [address] [place] [address] Performed By: #### 2 4356-8 #### [facility] CLIA [id number] [address] [place] [address] [place] Nitrite Ql (U) Negative Normal Negative [facility] Comment on above: Order Comment: Speci men Type: URINE SPECIMEN Ordering Facility: [facility] Address: [address] [place] [address] Performed By: #### 2 4356-8 #### [facility] CLIA [id number] [address] [place] [address] [place] pH (U) 6.0 [pH] Normal 5.0-8.0 [facility] Comment on above: Order Comment: Speci men Type: URINE SPECIMEN Ordering Facility: [facility] Address: [address] [place] [address] Performed By: #### 2 4356-8 #### [facility] CLIA [id number] [address] [place] [address] [place] Protein (U) [Mass/Vol] Negative Normal Negative [facility] Comment on above: Order Comment: Speci men Type: URINE SPECIMEN Ordering Facility: [facility] Address: [address] [place] [address] Performed By: #### 2 4356-8 #### [facility] CLIA [id number] [address] [place] [address] [place] RBC LM.HPF (Urine sed) [#/Area] 0-3 /HPF Normal 0-3 /HPF [facility] Comment on above: Order Comment: Speci men Type: URINE SPECIMEN Ordering Facility: [facility] Address: [address] [place] [address] Performed By: #### 2 4356-8 #### [facility] CLIA [id number] [address] [place] [address] [place] Specific gravity (U) [Rel density] 1.025 Normal 1.005-1.030 [facility] Comment on above: Order Comment: Speci men Type: URINE SPECIMEN Ordering Facility: [facility] Address: [address] [id number] Performed By: #### 2 4356-8 #### [facility] CLIA [id number] [address] [place] Urobilinogen Ql (U) 0.2 EU/dL Normal 0.2-1.0 EU/dL [facility] Comment on above: Order Comment: Speci men Type: URINE SPECIMEN Ordering Facility: [facility] Address: [address] [address] Performed By: #### 2 4356-8 #### [facility] CLIA [id number] [address] [place] [address] [place] WBC LM.HPF (Urine sed) [#/Area] 0-5 /HPF Normal 0-5 /HPF [facility] Comment on above: Order Comment: Speci men Type: URINE SPECIMEN Ordering Facility: [facility] Address: [address] [place] [address] Performed By: #### 2 4356-8 #### [facility] CLIA [id number] [address] [place] XR Ribs - left Views and Teresa st PAon 11-03-2022 IMPRESSION: Fractures of the anterolateral seventh through 10th ribs. No pneumothorax. Design Editor: AMANDA Transcribe Date/Time: Nov 03 2022 1:46P Dictated by : GISELLE FLORES MD This examination was interpreted and the report reviewed and electronically signed by: GISELLE FLORES MD on Nov 03 2022 1:51PM [facility] DIVISION OF RADIOLOGY * * *Final Report* * * DATE OF EXAM: Nov 02 2022 11:59AM WOX 5243 - XR RIB/CHST 3V AP RIB/OBL/CHST L / PROCEDURE REASON: Closed fracture of multiple ribs of left side with routine healing, subsequent e * * * * Physician Interpretation * * * * EXAMINATION: X-ray chest and left ribs Clinical History: Closed fracture of multiple ribs of left side with routine healing, subsequent encounter M: XC1_4 Comparison: Chest x-ray 08/12/2020 RESULT: Lines, tubes, and devices: None. Lungs and pleura: No consolidation. No lung mass. No pleural effusion. No pneumothorax. Cardiomediastinal silhouette: Normal cardiomediastinal silhouette. Musculoskeletal: Fractures of the left anterolateral seventh through 10th ribs. DIVISION OF RADIOLOGY Provider, Dawit Kenny - 11/03/2022 * * *Final Report* * * DATE OF EXAM: Nov 02 2022 11:59AM WOX 5243 - XR RIB/CHST 3V AP RIB/OBL/CHST L / PROCEDURE REASON: Closed fracture of multiple ribs of left side with routine healing, subsequent e * * * * Physician Interpretation * * * * EXAMINATION: X-ray chest and left ribs Clinical History: Closed fracture of multiple ribs of left side with routine healing, subsequent encounter M: XC1_4 Comparison: Chest x-ray 08/12/2020 RESULT: Lines, tubes, and devices: None. Lungs and pleura: No consolidation. No lung mass. No pleural effusion. No pneumothorax. Cardiomediastinal silhouette: Normal cardiomediastinal silhouette. Musculoskeletal: Fractures of the left anterolateral seventh through 10th ribs. IMPRESSION IMPRESSION: Fractures of the anterolateral seventh through 10th ribs. No pneumothorax. Design Editor: PSCB Transcribe Date/Time: Nov 03 2022 1:46P Dictated by : GISELLE FLORES MD This examination was interpreted and the report reviewed and electronically signed by: GISELLE FLORES MD on Nov 03 2022 1:51PM EST [facility] XR Ribs - left Views and Teresa st PAOrdered By: [facility] Provider on 11-03-2022 [facility] XR Ribs - left Views and Teresa cain PAon 11-02-2022 Radiology Study observation (narrative) [facility] MRI CERVICAL SPINE WO IVCONo n 08-28-2022 [facility] Bharath 08-25-2022 CNPN Telephone (NEBARRYFV) MIROSLAVA PERALTA ([id number]) 1950 M [facility]* Date Time Provider Department 08/25/22 BROCK PORTILLO During your visit today, we recorded the following information about you: Doreen Garcia Sec 08/25/2022 11:15 AM Signed Patient called for the status of a letter he requested from the provider at his July visit, stating he cannot go up/down steps. Please mail this to him home address. Estelle Castaneda RN 08/25/2022 12:18 PM Signed Will forward for review. Estelle Castaneda RN 08/26/2022 4:13 PM Signed Letter mailed to patient. Gina Khanna 09/02/2022 11:44 AM Signed Received call from patient's daughter asking if patient can get order for handicap sticker. She states that patient had a fax but it needs to be plugged in before we fax the order. She would like to know if we could call the patient at [phone] first so patient can plug in fax then fax the order to [phone] (fax). She also wanted to know if we could fax the letter that was mailed to him since he has not received it yet. She would appreciate if we can get this fax this week if possible since patient's birthday is coming up and he needs to renew his license. Estelle Castaneda RN 09/02/2022 12:08 PM Signed Will forward for review. Tiffany Garsia PA-C 09/02/2022 12:48 PM Signed Addended by: TIFFANY GARSIA on: 09/02/2022 12:48 PM Modules accepted: Orders Estelle Castaneda RN 09/02/2022 3:01 PM Signed Spoke with patient informing order and letter were ready to fax. Faxed to number requested. Faxed verification received. Allergies As of Date: 08/25/2022 Noted Allergy Reaction CARDIZEM (DILTIAZEM HCL) 03/04/2011 14 - Other: See Comments Comments: panic attack DIOVAN (VALSARTAN) 09/29/2010 8 - GI Upset Comments: Caused nausea HYZAAR (LOSARTAN-HYDROCHLOROTHIAZ* 03/04/2011 14 - Other: See Comments Comments: Mood change LOPRESSOR (METOPROLOL TARTRATE) 03/22/2018 14 - Other: See Comments Comments: no energy, wiped pt out Date Reviewed: 08/10/2022 Reviewed by: Marilee Olivier - Fully Assessed Reason for Visit: patient letter request [Other] Primary Visit Diagnosis:Cervical myelopathy (HCC) [G95.9] Order(s):PARKING FOR HANDICAPPED [[id number]] Order #: [id number] Prescriptions as of 09/02/2022 - gabapentin (NEURONTIN) 300 mg capsule Take 2 capsules by mouth three times daily for 90 days. - traZODone (DESYREL) 150 mg tablet Take 1 tablet by mouth daily at bedtime. - lisinopril (ZESTRIL, PRINIVIL) 20 mg tablet Take 1 tablet by mouth once daily. - tamsulosin (FLOMAX) 0.4 mg Take 1 capsule by mouth daily at bedtime. - docusate sodium (COLACE) 100 mg capsule Take 1 capsule by mouth twice daily. - amLODIPine (NORVASC) 10 mg tablet Take 1 tablet by mouth once daily. - omega-3 fatty acids/vitamin e(FISH OIL 1,000 MG CAP) Take by mouth. Problem List As Of Date 08/25/2022 Noted Resolved Diarrhea [R19.7] 07/31/2010 06/16/2019 Hypertension [I10] 07/31/2010 Sleeping difficulty [G47.9] 09/29/2010 Anxiety [F41.9] 09/29/2010 03/22/2022 Impaired fasting blood sugar [R73.01] 10/02/2010 03/22/2022 S/P hip replacement [Z96.649] 08/07/2014 Shoulder pain, right [M25.511] 09/04/2014 03/22/2022 Primary localized osteoarthrosis of shoulder re*12/12/2014 03/22/2022 S/P shoulder joint replacement [Z96.619] 02/21/2015 Chronic hepatitis C without hepatic coma (HCC) *01/05/2019 Chronic bilateral low back pain without sciatic*12/18/2020 03/22/2022 MGUS (monoclonal gammopathy of unknown signific*03/15/2021 Numbness and tingling of foot [R20.0, R20.2] 07/20/2021 03/22/2022 Former smoker [Z87.891] 02/23/2022 Neurogenic claudication (HCC) [G95.19] 03/20/2022 Obesity, Class I, BMI 30-34.9 [E66.9] 03/20/2022 S/P laminectomy [Z98.890] 03/20/2022 Post-op pain [G89.18] 03/29/2022 Chronic vertigo [R42] 06/09/2022 Letter Text Encounter Status:Closed by ESTELLE CASTANEDA on 08/26/22 Normal [facility] MRI BRAIN WO/W IVCONon 07-01 [facility] CNOVon 04-16-2022 CNOV Office Visit (NSFRVW ) MIROSLAVA PERALTA ([id number]) 1950 M [facility]* Date Time Provider Department 04/16/22 11:30 AM MAYRA GALE During your visit today, we recorded the following information about you: Pulse Blood pressure Weight Height 89/minute 117/73 101.6 kg 1.88 m Mayra Gale PA-C 04/16/2022 12:27 PM Signed SPINE SURGERY FOLLOW UP SERVICE DATE: 04/16/2022 SURGERY DATE: 04/01/22 Miroslava Peralta is seen for 2 week post operative follow up from lumbar wound hematoma evacuation and durotomy repair. Original surgery on 03/20/22 was L3-5 laminectomy. Today, he is still having some gait issues and decreased sensation from bilateral knees to feet. He is walking with a walker. Doing the home exercises that PT has taught him. Sutures are still in place from hematoma evacuation. He is taking percocet and robaxin for pain. His legs still feel heavy like he is walking in water, similar to pre-op. PAIN EVALUATION 04/16/2022 1129 Pain Level: 2 Pain Location: Back-Lower Duration Units: Unknown Frequency: Intermittent Intervention/Comfort measure: Medication Patient Entered Questionnaires Spine Questions 12/29/2021 Pain Location: Lower back Pain Duration: 1 to 5 years Pain over last 6 months: Every day or nearly every day in the past 6 months Symptoms from neck/cervical spine: No Employment Status: Disabled due to back pain, permanently or temporarily Off work 1 month or more due to back/neck pain: Does not apply Applied for/receive disability/WC due to low back/neck pain Does not apply Involved in law suit/legal claim: No PROMIS Score Percentiles Physical Health 12/29/2021 Physical Function Percentile 0 Sleep Percentile 27* Fatigue Percentile 16* Pain Interference Percentile 2 PROMIS SOCIAL ROLE SCORE 12/29/2021 Social Role Satisfaction Percentile 4 PROMIS Global Health Scale 12/29/2021 Physical Health Percentile 7 Mental Health Percentile 5 Percentiles provide an indication of how the patient's score ranks in relation to the general population. Higher percentile rankings indicate better function/quality of life. 50th percentile is the average of the general population and indicates half of respondents had a worse score. Depression Screening: PHQ-9 12/29/2021 Score 16 PHQ-9 Self-harm Question 12/29/2021 Thoughts that you would be better off , or of hurting yourself in some way 0 PHQ-9 Self-Harm (Item 9) response options: 0 Not at all 1 Several days 2 More than half the days 3 Nearly every day PHQ-9 Levels: 0-4 No to mild depression 5-9 Mild depression 10-14 Moderate depression 15-19 Moderately severe depression 20-27 Severe depression PHYSICAL EXAM: BP 117/73 Pulse 89 Ht 188 cm (6' 2 ) Wt 101.6 kg (224 lb) BMI 28.76 kg/m? GENERAL APPEARANCE: Well nourished, well developed, and no apparent distress. NEURO PSYCH: Patient oriented to person, place, and time. Mood pleasant. Benign affect. MUSCULOSKELETAL VISUAL INSPECTION CERVICAL: WNL THORACIC: WNL LUMBAR: WNL MOTOR: 5/5 in all muscle groups. SENSORY: Normal sensory exam GAIT: Using walker Incision healing well DATA REVIEW No additional images reviewed today ASSESSMENT/PLAN (M48.062) Spinal stenosis, lumbar region with neurogenic claudication (primary encounter diagnosis) Miroslava Peralta will continue with medical management of his/her condition. 1. No Orders Entered Today 2. Follow up: 3 months I spent a total of 20 minutes on the date of the service which included preparing to see the patient, [id number] patient care, completing clinical documentation, obtaining and/or reviewing separately obtained history, performing a medically appropriate examination and counseling and educating the patient/family/caregiver. SIGNATURE: Mayra Gale PA-C PATIENT NAME: Miroslava Peralta DATE: April 16, 2022 TIME: 12:22 PM PAGER: Referring Provider: NAVIN ACKERMAN [[id number]] Allergies As of Date: 04/16/2022 Noted Allergy Reaction CARDIZEM (DILTIAZEM HCL) 03/04/2011 14 - Other: See Comments Comments: panic attack DIOVAN (VALSARTAN) 09/29/2010 8 - GI Upset Comments: Caused nausea HYZAAR (LOSARTAN-HYDROCHLOROTHIAZ* 03/04/2011 14 - Other: See Comments Comments: Mood change LOPRESSOR (METOPROLOL TARTRATE) 03/22/2018 14 - Other: See Comments Comments: no energy, wiped pt out Date Reviewed: 04/16/2022 Reviewed by: Latonya Warren MA - Fully Assessed Reason for Visit: Post Op [174] Cmt: lower back Primary Visit Diagnosis:Spinal stenosis, lumbar region with neurogenic claudication [M48.062] Prescriptions as of 04/16/2022 - methocarbamol (ROBAXIN) 750 mg tablet Take 1 tablet by mouth four times daily as needed. - oxyCODONE-acetaminophen (PERCOCET) 5-325 mg tablet Take 1 tablet by mouth every 8 hours as needed for pain for up to 7 days. - d (more content not included)... Normal [facility] XR CERV OTHER 4V AP/LAT/OBLo n 04-09-2022 [facility] CNDSon 04-04-2022 CNDS HNO ID: [id number] Author: Steve Jo PA-C Service: Neurosurgery Author Type: Physician Telephone Switchboard Operator Type: Discharge Summary Filed: 04/04/2022 9:23 AM Note Text: Attestation signed by Brock Portillo MD at 04/04/2022 12:25 PM Brock Portillo MD DISCHARGE SUMMARY NEUROLOGICAL [facility] PATIENT NAME: Miroslava Peralta ADMISSION DATE: 03/29/2022 DISCHARGE DATE: 04/04/2022 Attending Physician: Brock Portillo MD PCP: Navin Ackerman MD [phone] Code Status: Not on file Discharged Against Medical Advice? No Highest Readmission Risk Score: 11 The 30 day readmissions risk score is derived from an internally validated risk model which evaluates patient level characteristics, utilization history, medication orders and lab results up until the day of discharge. Patients with a score of 40 or above are considered highest risk for readmission. Specific patient level drivers will be listed at the bottom of the summary. The 30 day readmissions risk score is derived from an internally validated risk model which evaluates patient level characteristics, utilization history, medication orders and lab results up until the day of discharge. Patients with a score of 40 or above are considered highest risk for readmission. Specific patient level drivers will be listed at the bottom of the summary HPI: Transitions of Care Critical Issues: None LABS AND PROCEDURES PENDING AT DISCHARGE: No pending results. Operations During Hospitalization: 04/01/2022: Reexploration of lumbar wound, repair of durotomy Operative Duration: 1 Hr 50 Min 10 Sec Implants Used for Surgery: Implant Name Type Inv. Item Serial No. Ichthyologist Lot No. [id number] No. Used Action GRAFT DURAGEN PLUS BOVINE COLLAGEN MATRIX 2X2IN SOFT TISSUE PATCH - [id number] Framework - Tissue GRAFT DURAGEN PLUS BOVINE COLLAGEN MATRIX 2X2IN SOFT TISSUE PATCH [employer] [id number] N/A 1 Implanted Surgical Specimens: * No specimens in log * Incision/Procedure Start Time: 5:29 PM Incision Close/Procedure End Time: 6:35 PM Surgeon(s) and Role: * Brock Portillo MD - Primary Tong Carrier: Radha Denny, IMMANUEL; Angely Medellin, IMMANUEL Physician Telephone Switchboard Operator: Steve Jo PA-C Scrub Person: Jayjay Leon RN Procedures During Hospitalization: No procedures performed Hospital Course: No notes on file Active Hospital Problems as of 04/04/2022 Noted - Resolved POA Hospital * (Principal) Post-op pain 03/29/2022 - Present Yes Resolved Hospital Problems as of 04/04/2022 None The patient was discharged on POD # 3 Days Post-Op in stable condition. Complete and comprehensive discharge instructions were provided to the patient as well as necessary prescriptions. The patient had no further questions and was advised to call with any questions, concerns, or problems. Consulting Teams During Hospitalization: None Treatment Team: Attending Provider: Brock Portillo MD Patient's pain was well controlled with Oral Pain Medications. Physical Therapy was started on POD # 1. Patient progressed satisfactorily through physical therapy until discharge. Based upon the appropriate milestones the patient met during the hospital course, Physical Therapy recommended patient be discharged to [facility]- discharged home. Relevant labs included: CBC: Recent Labs 03/29/22 1329 WBC 8.51 HB 14.2 HCT 42.3 PLT 258 MCV 94.2 RDWCV 12.0 NEUTP 92.7 ABSNEUT 7.88* LYMPHP 4.8 MONOP 2.1 COAG: No results for input(s): APTT, INR in the last 168 hours. BMP: Recent Labs 03/29/22 1329 GLUC 130* NA 136 K 4.8 CHLOR 100 CO2 24 ANION 12 BUN 17 CREAT 0.95 CHEM: Recent Labs 03/29/22 1329 ALB 4.1 TPROT 7.1 CA 9.2 HEPATIC: Recent Labs 03/29/22 1329 ALKPHOS 56 ALT 10 AST 13* TBILI 0.3 URINALYSIS:No results for input(s): PH, SPGR, UGLUC, UBILI, UKET, UHB, UPROT, UROBIL, UWBC, SSA in the last 168 hours. Invalid input(s): NITR CARDIAC: No results for input(s): CKTEST, CKMB, CKMBP, TROPT, PBNP in the last 168 hours. HbA1C: Hemoglobin A1C (%) Date Value 12/13/2020 5.3 Vitamin D: No results found for: VITD25 ESR: Sed Rate, Westergren Date Value Ref Range Status 03/29/2022 8 0 - 15 mm/hr Final CRP: CRP Date Value Ref Range Status 03/29/2022 <0.3 <0.9 mg/dL Final Estimated Creatinine Clearance: 89.5 mL/min (based on SCr of 0.95 mg/dL). Imaging: Patient had no signs/symptoms of DVT, so no ultrasound was done during hospital course. No results found. ALLERGIES: ALLERGIES Allergen Reactions - Cardizem [Diltiazem* Other: See Comments panic attack - Diovan [Valsartan] GI Upset Caused nausea - Hyzaar [Losartan-Hy* Other: See Comments Mood change - Lopressor [Metopro (more content not included)... Normal [facility] NURSING PROGon 04-04-2022 NURSING PROG HNO ID: [id number] Author: Rachel Villanueva, RN Service: Nursing Author Type: Registered Nurse Type: Nursing Progress Note Filed: 04/04/2022 3:53 PM Note Text: Nursing Progress Note Patient Name: Miroslava Peralta Patient Location: [place] [address]/[facility] Daily Note: 0836: Pt AxOx3, PERRLA, speech clear and coherent, pleasantly follows commands, reports improvement in BLE weakness/numbness/tingling, lungs audible clear in all lobes, no cough or sob noted, tolerating room air, all pulses palpable, bowel sounds active x4- pt reports passing stool with ease now, urinating without difficulty, surgical incision open to air, closed with sutures, no drainage noted, no other skin issues, ambulates independently with walker for stability, plan to be evaluated again by PT and OT for safe discharge home today with home care. 1050: Pt seen by OT and PT. Pt ambulated from PKT up to PK3 via stairwell with physical therapist with ease, more so nervous than weak. Continue to recommend home therapies. 1552: Pt discharged to home with home therapy, verbalized understanding of instructions given on diet, activity, medication, wound, and follow up. Pt left unit with all personal belongings with family friend to transport home. This note was completed by: Rachel Villanueva [facility] THERAPY NTon 04-04-2022 THERAPY NT HNO ID: [id number] Author: Polo Steward, PT Service: Physical Therapy Author Type: Physical Therapist Type: Therapy (PT/OT/Speech/Resp) Filed: 04/04/2022 10:55 AM Note Text: Physical Therapy Re-Evaluation SERVICE DATE: 04/04/2022 SERVICE TIME: 0950 to 1020 ROOM: [address] [address] Recommended Discharge Disposition: Home PT Recommended Discharge Disposition Comments: Patient reports he feels ready to return home. he is requesting an elevated commode for toilet as he has a low toilet seat at home and plops onto it which increases his pain levels. resume Home PT services. Anticipated Discharge Needs: Physical Assist at Home Physical Assist at Home for: Cleaning;Laundry;Meals;Shop ping;Transportation Recommended Discharge Equipment: Commode-Raised PT 6 Clicks Score: 20 Precautions/Activity Restrictions: Fall Risk;Spine Precaution/Activity Restriction Comments: mobilize Current Hospital Course: s/p Lumbar wound hematoma evacuation and durotomy repair 04/01 Reason for Hospital Admission: increased pain following laminectomy on 03/20/22 Relevant Past Medical History: HTN, R CARMELINA, bilateral shoulder/elbow sx, hx substance abuse. L3-5 laminectomy 03/20/22 Response to Therapy Interventions: Good participation in activities Continue skilled needs due to: Functional mobility/skill impairments Physical Therapy Problem List: Decreased Strength;Functional Mobility Impairment;Balance Impaired Treatment Interventions: Education;Strengthening;Fun ctional Mobility Training;Balance Training Plan for next visit: Gait training, Sit to Stand Transfers, Stairs training Home Environment Patient Lives With: Self/Alone Assistance Available: PRN (Friends and neighbor will come assist as needed) Entry To Home: Stairs;With Rail (left side on ascending side) Number Of Stairs Into Home: 21 Number Of Stairs To Bed/Bath: 0 Tub/Shower Type: Walk-in shower Laundry: uses neighbors laundry, friends will assist Equipment Owned: Wheeled Walker Prior Functional Level: Within Functional Limits;History of Falls Prior Functional Level Comments: IND ADL/IADL, amb w/o device, drives, retired, one fall on ice recently Patient Report: Pt reports feeling like he did following his lami on 03/20 CURRENT FUNCTIONAL STATUS: Most recent performance Current Functional Mobility Assist Level Additional Information Rolling Supine to Sit Stand By Assistance Sit to Supine Stand By Assistance Scooting Stand By Assistance Sit to Stand Minimal Assistance;Contact Guard Assistance (min A from lower w/c position, CGA from chair and bed position) Stand to Sit Contact Guard Assistance;Minimal Assistance (cued for eccentric control, min A given for eccentric control going to a lower seated position) Bed to Chair Modified Independent Bed To Chair Transfer Type: Stepping Bed To Chair Transfer Equipment: Wheeled Walker Toilet/Commode Gait Contact Guard Assistance;Stand By Assistance;Minimal Assistance (CGA/SBA using a ww, min A without) Gait Device: Wheeled Walker Gait Distance (feet): 150x2 with ww, 25' without Stairs Contact Guard Assistance Stairs Device: Rail Number of Stairs: 24 (cues for sequencing using step to gait pattern) Curb Step Car Transfer Blank palencia indicate activity not attempted Gait Deviations Left Lower Extremity: Knee stability during stance phase decreased;Knee flexion during stance increased General Deviations/Observations: Cassandra decreased;Flexed trunk posture;Step length decreased (cues for postural corrections and to maintain forward gaze, LE weakness but no buckling) Balance: Static Sitting;Static Standing;Dynamic Standing Static Sitting Balance: Normal Patient able to maintain steady balance without handhold support Static Standing Balance: Good Patient able to maintain balance without handhold support, limited postural sway Dynamic Standing Balance: Fair Patient accepts minimal challenge, able to maintain balance while turning head/trunk -HLM: 7: Walk 25 feet or more Learning/Educational Needs: Discharge Plan;Disease Process;Equipment;Functiona l Activities/Mobility;Plan of Care;Precautions;Pain Management;Safety Goals for Plan of Care: Patient /Caregiver Goals: Go Home Goals: Patient will demonstrate progress with functional mobility to allow safe discharge to home with available support and/or physical assistance. Progress Toward Goals: Progressing as expected Rehab Potential: Excellent Patient will be discontinued from Physical Therapy when no further skilled needs are identified in this setting. PLAN: PT Frequency: 3 times per week Reasons Therapy Services Discontinued: Goals met Plan of Care developed with: Patient TREATMENT INTERVENTIONS: Therapy Diagnosis: Reduced mobility-other;Muscle Weakness (generalized) Interventions Provided: Re-evaluation;Gait Training (00981) $ Reevaluation (87307) Billed Units: 1 unit Gait Training (54002) Treatment M (more content not included)... Normal [facility] THERAPY NT HNO ID: [id number] Author: Deann Navas, OTR/L Service: Occupational Therapy Author Type: Occupational Therapist Type: Therapy (PT/OT/Speech/Resp) Filed: 04/04/2022 8:48 AM Note Text: Occupational Therapy Evaluation SERVICE DATE: 04/04/2022 SERVICE TIME: 809 to 833 ROOM: [place] [address] Recommended Discharge Disposition: Home OT Anticipated Discharge Needs: Physical Assist at Home Physical Assist at Home for: Cleaning;Laundry;Stairs;Hanna pping;Transportation OT 6 Clicks Score: 24 Precautions/Activity Restrictions: Fall Risk;Spine Current Hospital Course: Lumbar wound hematoma evacuation and durotomy repair Reason for Hospital Admission: increased pain following laminectomy on 03/20/22 Relevant Past Medical History: HTN, R CARMELINA, bilateral shoulder/elbow sx, hx substance abuse. L3-5 laminectomy 03/20/22 Response to Therapy Interventions: Good participation in activities, Pain Continue skilled needs due to: Functional impairment, Safety concerns Occupational Therapy Problem List: Pain;Impaired Self Care;Decreased Activity Tolerance Cognition/Communication Deficits Responsiveness: Alert Treatment Interventions: Education;Self Care / Home Management;Functional Mobility Training;Pain Management Plan for next visit: Dressing training, Equipment needed (specify), Fall prevention, Pain management, Sit to stand transfers, Toileting instruction Home Environment Patient Lives With: Self/Alone Assistance Available: PRN (Friends and neighbor will come assist as needed) Entry To Home: Stairs;With Rail (left side on ascending side) Number Of Stairs Into Home: 21 Number Of Stairs To Bed/Bath: 0 Tub/Shower Type: Walk-in shower Laundry: uses neighbors laundry, friends will assist Equipment Owned: Wheeled Walker Prior Functional Level: Within Functional Limits;History of Falls Prior Functional Level Comments: IND ADL/IADL, amb w/o device, drives, retired, one fall on ice recently Patient Report: Pleasant, agreeable, motivated, wants to go home CURRENT FUNCTIONAL STATUS: Most recent performance Current Activities of Daily Living Assist Level Additional Information Feeding Independent Grooming Modified Independent Bathing Upper Body Modified Independent Bathing Lower Body Stand By Assistance Dressing Upper Body Stand By Assistance Dressing Lower Body Stand By Assistance Toileting Stand By Assistance Instrumental Activities of Daily Living Assist Level Additional Information Meal/Beverage Prep Cleaning Laundry Medication Management with Strategies Functional Mobility Assist Level Additional Information Rolling Supine to Sit Sit to Supine Scooting Sit to Stand Stand By Assistance Stand to Sit Stand By Assistance Bed to Chair Stand By Assistance Wheeled Walker Toilet/Commode Stand By Assistance Shower Functional Mobility Blank palencia indicate activity not attempted Learning/Educational Needs: Discharge Plan;Disease Process;Equipment;Family Education/Training;Function al Activities/Mobility;Pain Management;Plan of Care;Precautions;Rehabilita tion Techniques and Procedures;Safety;Self Care Goals for Plan of Care: Patient /Caregiver Goals: Go Home;Care For Self Goals: Patient will demonstrate progress with self-care, cognitive and/or coping needs identified to allow safe discharge to home with available support and/or physical assistance. Rehab Potential: Excellent Patient will be discontinued from Occupational Therapy when no further skilled needs are identified in this setting. PLAN: OT Frequency: 2 times per week (1) Plan of Care developed with: Patient TREATMENT INTERVENTIONS: Therapy Diagnosis: Reduced mobility-other;Decreased activities of daily living (ADL);Muscle Weakness (generalized);Unsteadiness on feet;Difficulty walking-musculoskeletal Interventions Provided: Evaluation;Self Jail Management (39640) $ Evaluation-Low (60603) Billed Units: 1 unit Self Jail Management (96485) Treatment Minutes: 9 $ Self Jail Management (85789) Billed Units: 1 unit Training AND education provided in: Assistive device use, Activity adaption / compensatory strategies, Adaptive equipment / DME, Bed mobility, Benefits of in-hospital mobility, Discharge planning, Disease specific education, Functional mobility involving ADLs, Grooming tasks, Lower extremity dressing, Pain management, Positioning, Precautions/restrictions, Role of Occupational Therapy, Standing balance to improve independence with ADLs/self-care, Toileting?, Transfer - Bed to chair, Transfer - Sit to stand, Transfer - Toilet/commode The following therapeutic skills were used: Activity dosing, Bed in chair position, Cues for sequencing/proper technique for activity, Cuing verbal, Cuing visual, Task analysis learning, Teach-back for education, Therapeutic use of self Timed Code Treatment (minutes): 9 Skilled Treatment Time (minutes): 24 Please see discipline sp (more content not included)... [facility] CASE MANAGEMon 04-03-2022 CASE MANAGEM HNO ID: [id number] Author: MARGARITA Valdes Service: ? Author Type: Central Supply Tech Type: Care Mgt Progress Note Filed: 04/03/2022 10:40 AM Note Text: CARE MANAGEMENT WEEKEND PLANNING NOTE DISCHARGE OR POSSIBLE DISCHARGE Date/Time: TBD Disposition: Home Care - Agency: [facility] Phone #: SOC Date: TBD, CONTACT WEEKEND CM TO FINALIZE Transport: Car Friends Other Concerns: Pt is from home alone on 2nd floor of [facility]. Count includes the [facility] accepting pt. Pt will need F for [facility]. Pt reports his friend will transport at [place]. Await medical clearance. Pt on bedrest until 9p tonight. 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 #: [place] [phone] Wednesday AND Wednesday IMM Follow Up Copy Given: Yes Copy given to:: Patient Method: In Person SIGNATURE: MARGARITA Valdes PATIENT NAME: Miroslava Peratla DATE: April 03, 2022 TIME: 10:36 AM PAGER/CONTACT #: [phone] [facility] NURSING PROGon 04-03-2022 NURSING PROG HNO ID: [id number] Author: Sarah Angeles RN Service: Nursing Author Type: Registered Nurse Type: Nursing Progress Note Filed: 04/03/2022 2:12 PM Note Text: Nursing Progress Note Patient Name: Miroslava Peralta [facility] Daily Note: 1400 Dr Munoz paged regarding bedrest order status. Dr Portillo will come to see pt shortly. This note was completed by: Sarah Angeles [facility] NURSING PROG HNO ID: [id number] Author: Usha Sanchez RN Service: Nursing Author Type: Registered Nurse Type: Nursing Progress Note Filed: 04/03/2022 4:18 AM Note Text: Nursing Progress Note Patient Name: Miroslava Peralta Patient Location: [facility] Daily Note: Pt AOx3. VSS. Tolerating 2L NC, sats WNL. Medicated for pain over night. Initial post op dressing CDI, drain intact with minimal output. Bedrest as ordered. No further needs. Safety precautions maintained. This note was completed by: Usha Sanchez [facility] ANES POSTPROC EVALon 022 ANES POSTPROC EVAL HNO ID: [id number] Author: Larry Mc MD Service: Anesthesiology Author Type: Anesthesiologist Type: Anesthesia Postprocedure Evaluation Filed: 04/01/2022 6:58 PM Note Text: POST ANESTHESIA EVALUATION NOTE : 1950 Procedure Summary Date: 04/01/22 Room / Location: [place] [address] / OR Anesthesia Start: 1657 Anesthesia Stop: 1852 Procedures: INCISION AND DRAINAGE ABSCESS POSTERIOR SPINE; LUMBAR, SACRAL, OR LUMBOSACRAL (N/A Back lower ) LAMINECTOMY W/ REPAIR OF DURAL / CEREBROSPINAL FLUID LEAK (N/A Back lower ) Diagnosis: S/P lumbar laminectomy Lumbar surgical wound fluid collection Postoperative CSF leak (S/P lumbar laminectomy [Z98.890]) (Lumbar surgical wound fluid collection [T81.89XA]) (Postoperative CSF leak [G97.82, G96.00]) Surgeons: Brock Portillo MD Responsible Provider: Larry Mc MD Anesthesia Type: general ASA Status: 3 - Emergent Anesthesia Type: general Airway Type: ETT Last Vitals Vitals Value Taken Time BP 151/126 04/01/220 Temp 36 04/01/221857 Pulse 71 04/01/227 Resp 17 04/01/22 185 SpO2 98 % 04/01/221856 Vitals shown include unvalidated device data. Post Anesthesia Patient Status Patient Evaluation: PACU. PACU/ICU Patient Condition: stable. Anticipated Disposition: phase 2 then home. Neurological Status: aware and responsive. Pulmonary Status: breathing comfortably on room air Airway Control: returned to baseline unsupported. Cardiovascular Status: stable. Pain Management: clinically adequate Postoperative Hydration: acceptable. Intraoperative Events: no significant anesthesia events Recommendation: continue current plan of care. Anesthesia Observations No Documentation SIGNATURE: Larry Mc MD PATIENT NAME: Miroslava Peralta DATE: April 01, 2022 TIME: 6:58 PM CSN: [id number] [facility] ANES PRE-OPon 04-01-2022 ANES PRE-OP HNO ID: [id number] Author: Larry Mc MD Service: Anesthesiology Author Type: Anesthesiologist Type: Anesthesia Preprocedure Evaluation Filed: 04/01/2022 4:25 PM Note Text: ANESTHESIOLOGY DAY OF SURGERY NOTE : 1950 Procedure Information Date/Time: 04/01/22 1630 Procedures: INCISION AND DRAINAGE ABSCESS POSTERIOR SPINE; LUMBAR, SACRAL, OR LUMBOSACRAL (N/A Back lower ) LAMINECTOMY W/ REPAIR OF DURAL / CEREBROSPINAL FLUID LEAK (N/A Back lower ) - Lenin spine table with hip/thigh pads and flat top for feet C-arm spot *May place a lumbar drain. Kit is [employer] #[id number] found in between 8 AND 10 on mejia smart shelf with shunt materials. Larger white box w/RFID Location: OR / OR Surgeons: Brock Portillo MD Estimated body mass index is 28.89 kg/m? as calculated from the following: Height as of this encounter: 188 cm (6' 2 ). Weight as of this encounter: 102.1 kg (225 lb). Most recent hematocrit and potassium results: Hematocrit 42.3 03/29/2022 Potassium 4.8 03/29/2022 Relevant Problems CARDIO (+) Hypertension -RENAL (+) Chronic hepatitis C without hepatic coma (HCC) I - PHYSICAL EVALUATION AIRWAY Patient intubated: No. Tracheostomy tube not present Mallampati: II. TM distance: >3 FB. Neck ROM: full ROM without neurological symptoms. Mouth opening: adequate. Short neck: no. Thick neck: no DENTAL Normal dental observations. Dental findings: teeth intact. Additional comments: Front caps. Additional exam findings: yes. CARDIOVASCULAR Normal cardiovascular observations. Rhythm: regular Rate: normal PULMONARY Normal pulmonary observations. Breath sounds clear to auscultation. II - ANESTHESIA PLAN ASA Score: 3; emergent. Anesthetic Plan: general Airway type: ETT The patient is not a current smoker. NPO Status: adequate Monitoring plan: standard ASA. Postoperative analgesic plan: multimodal analgesia. Informed Consent Anesthetic risks, benefits, alternatives, personnel and consent discussed: yes. Patient / Responsible Green Party agrees to proceed: yes Patient / Surrogate agrees to blood products: yes Significant changes in the patient condition since the History and Physical, not otherwise documented in primary service progress note: no. Potential Anesthesia issues that may suggest increased risk of complications or contraindication to planned procedure: none. Vitals Value Taken Time BP 171/93 04/01/22 1617 Pulse 72 04/01/22 1617 Resp 16 04/01/22 1617 Temp 36.2 ?C (97.2 ?F) 04/01/22 1617 SpO2 100 % 04/01/22 1617 Facility-Administered Medications as of 04/01/2022 Medication Dose Route Frequency - [MAR Hold due to Transfer] traZODone 150 mg tab(s) (DESYREL) 150 mg ORAL AT BEDTIME - [MAR Hold due to Transfer] cephALEXin 500 mg cap(s) (KEFLEX) 500 mg ORAL q 6 H - [MAR Hold due to Transfer] NaCl 0.9% iv flush bag 20 mL INTRAVENOUS PRN - [MAR Hold due to Transfer] sodium chloride 0.9 % (flush) 3-5 mL (BD POSIFLUSH) 3-5 mL INTRAVENOUS q 12 H - [MAR Hold due to Transfer] ondansetron 4 mg tab(s) (ZOFRAN) 4 mg ORAL q 6 H PRN Or - [MAR Hold due to Transfer] ondansetron (PF) 4 mg injection (ZOFRAN) 4 mg INTRAVENOUS q 6 H PRN - [MAR Hold due to Transfer] melatonin 1 mg tab(s) 1 mg ORAL DAILY (8 PM) - [MAR Hold due to Transfer] morphine 4 mg injection 4 mg INTRAVENOUS q 2 H PRN - [MAR Hold due to Transfer] acetaminophen 1,000 mg tab(s) (TYLENOL) 1,000 mg ORAL q 8 H - [MAR Hold due to Transfer] oxyCODONE IR 5 mg tab(s) (ROXICODONE) 5 mg ORAL q 4 H PRN - [MAR Hold due to Transfer] senna-docusate 8.6-50 mg 1 tablet (SENNA-S) 1 tablet ORAL BID - [MAR Hold due to Transfer] gabapentin 600 mg cap(s) (NEURONTIN) 600 mg ORAL TID - [MAR Hold due to Transfer] methocarbamol 750 mg tab(s) (ROBAXIN) 750 mg ORAL QID PRN - [MAR Hold due to Transfer] dexAMETHasone sodium phosphate 4 mg injection (DECADRON) 4 mg INTRAVENOUS q 6 H - [MAR Hold due to Transfer] lidocaine 4 % 1 Patch (SALONPAS) 1 Patch TRANSDERMAL DAILY And - [MAR Hold due to Transfer] lidocaine patch - REMOVE OTHER AT BEDTIME And - [MAR Hold due to Transfer] lidocaine - VERIFY PATCH OTHER q 8 H - [MAR Hold due to Transfer] amLODIPine 10 mg tab(s) (NORVASC) 10 mg ORAL DAILY AT 9 PM - [MAR Hold due to Transfer] lisinopril 20 mg tab(s) (ZESTRIL, PRINIVIL) 20 mg ORAL DAILY AT 9 PM Outpatient Medications as of 04/01/2022 Medication Sig - oxyCODONE-acetaminophen (PERCOCET) 5-325 mg tablet Take 1 tablet by mouth every 8 hours as needed for pain for up to 7 days. - docusate sodium (COLACE) 100 mg capsule Take 1 capsule by mouth twice daily. - methocarbamol (ROBAXIN) 750 mg tablet Take 1 tablet by mouth four times daily as needed. - gabapentin (NEURONTIN) 300 mg capsule Take 2 capsules by mouth three times daily for 90 days. - amLODIPine (NORVASC) 10 mg tablet Take 1 tablet by mouth once daily. (Patient not taking: Reported on 03/19/2022 (more content not included)... [facility] BRIEF OP NOTon 04-01-2022 BRIEF OP NOT HNO ID: [id number] Author: Brock Portillo MD Service: Neurosurgery Author Type: Physician Type: Brief Op Note Filed: 04/02/2022 6:19 AM Note Text: BRIEF OPERATIVE / PROCEDURE NOTE LOG ID: [id number] SURGERY/PROCEDURE DATE: 04/01/2022 INCISION/PROCEDURE START TIME: 5:29 PM INCISION CLOSE/PROCEDURE END TIME: 6:35 PM SURGEON(S)/PROCEDURALIST(S) AND WIDE AREA NETWORK ENGINEER(S): Surgeon(s) and Role: * Brock Portillo MD - Primary Physician Telephone Switchboard Operator: Steve Jo PA-C SURGERY/PROCEDURE(S): Lumbar wound hematoma evacuation and durotomy repair ANESTHESIA: General FINDINGS: leak through suture hole repaired primarily and with duraseal/duragen ESTIMATED BLOOD LOSS: 10 mls SPECIMENS: None COMPLICATIONS: None DRAINS: Subfascial drain PRE-OP/PRE-PROCEDURE DIAGNOSIS: Lumbar wound hematoma POST-OP/POST-PROCEDURE DIAGNOSIS: Lumbar wound hematoma SIGNATURE: Brock Portillo MD PATIENT NAME: Miroslava Peralta DATE: April 01, 2022 TIME: 6:26 PM [facility] CASE MANAGEMon 04-01-2022 CASE MANAGEM HNO ID: [id number] Author: MARGARITA Valdes Service: ? Author Type: Central Supply Tech Type: Care Mgt Progress Note Filed: 04/01/2022 11:59 AM Note Text: CARE MANAGEMENT PROGRESS NOTE SERVICE DATE: 04/01/2022 SERVICE TIME: 11:58 AM LOS: 2 days Needs Prior to Discharge: To Be Determined;Home Care Order Pt is from home alone at baseline. [facility] accepting pt. Pt will need F2F. Await tentative plan for OR with Dr. Portillo. SIGNATURE: MARGARITA Valdes PATIENT NAME: Miroslava Monzonw DATE: April 01, 2022 TIME: 11:58 AM PAGER/CONTACT #: [phone] [facility] NURSING PROGon 04-01-2022 NURSING PROG HNO ID: [id number] Author: Carmela Borrero RN Service: ? Author Type: Registered Nurse Type: Nursing Progress Note Filed: 04/02/2022 2:23 AM Note Text: Nursing Progress Note Patient Name: Miroslava Peralta Patient Location: Daily Note: Pt return to floor from surgery in stable condition. Pt to keep HOB below 30 degrees/strict bedrest. Instruct pt not to get up and strict bedrest overnight per orders, pt verbalizes understanding. Initial post op dressing Aquacel in place clean dry and intact, accordion drain in place. Pt reports 7/10 back pain admin prn oral pain medications pt able to swallow and take in small meal. Patient resting comfortably, bed alarm on and functioning, call light with in reach, will continue to monitor. This note was completed by: Carmela [facility] NURSING PROG HNO ID: [id number] Author: Karo Carvalho, RN Service: ? Author Type: Registered Nurse Type: Nursing Progress Note Filed: 04/01/2022 9:55 AM Note Text: Nursing Progress Note Patient Name: Miroslava Peralta Patient Location: Daily Note: This note was completed by: Karo Carvalho vss npo for surgery denies c/o pain no sob no cp, Lungs cl po 98% dressing to back area dry intact c/o back aching 3/10 c/o chi leg numbness neuoropathy awaiting for surgery. [facility] OPERATIVE NOon 04-01-2022 OPERATIVE NO HNO ID: [id number] Author: Brock Portillo MD Service: Neurosurgery Author Type: Physician Type: Operative Report Filed: 04/06/2022 5:35 AM Note Text: OPERATIVE/PROCEDURE REPORT LOG ID: [id number] SURGERY/PROCEDURE DATE: 04/01/2022 INCISION/PROCEDURE START TIME: 5:29 PM INCISION CLOSE/PROCEDURE END TIME: 6:35 PM SURGEON(S)/PROCEDURALIST(S) AND WIDE AREA NETWORK ENGINEER(S): Surgeon(s) and Role: * Brock Portillo MD - Primary Physician Telephone Switchboard Operator: Steve Jo PA-C SURGERY/PROCEDURE(S): Lumbar wound hematoma evacuation and durotomy repair ANESTHESIA: General INDICATION: 71 yo M who underwent lumbar laminectomy L3-L5 on March 29 complicated by durotomy who present with ongoing drainage from the incision. Decision was made for wound exploration. SURGERY/PROCEDURE DETAILS: Patient was brought to the operating room. A huddle was performed with anesthesia team and nursing staff and surgical team all agreed to proceed. Patient was positioned prone on the Bin table. IV antibiotics were given. The area was prepped and draped in usual fashion. Prior incision was opened. Dissection was then performed to the subfascial space. Fascia was opened. Extensive clot was visualized. This was removed. No signs of infection was seen. CSF leak was noted from the prior durotomy site at suture exit site. Using 5-0 Prolene the suture sites were reinforced. No further CSF leak was noted. Irrigation and hemostasis were achieved. Combination of DuraSeal DuraGen and Surgicel was placed. Drain was placed. Incision was closed in 3 layers. 1 Vicryl for fascia, 2-0 Vicryl for subcutaneous layer, 3-0 ethilon for skin. Dressing was applied. Patient was gently emerged from anesthesia and was transferred to PACU in stable condition. PRE-OP/PRE-PROCEDURE DIAGNOSIS: Lumbar wound hematoma POST-OP/POST-PROCEDURE DIAGNOSIS: Lumbar wound hematoma ESTIMATED BLOOD LOSS: 10 mls SPECIMENS: None IMPLANTABLE DEVICES: None DRAINS: Subfascial drain COMPLICATIONS: None PARTICIPATION IN SURGERY/PROCEDURE: Brock Portillo and Steve Jo performed the opening durotomy repair and closure together SIGNATURE: Brock Portillo MD PATIENT NAME: Miroslava Peralta DATE: April 01, 2022 TIME: 6:30 PM [facility] 03-31-2022 [facility] HNO ID: [id number] Author: Chaplain Dung Service: Spiritual Care Author Type: Type: Allied Health Filed: 03/31/2022 4:21 PM Note Text: SPIRITUAL CARE PROGRESS NOTE SERVICE DATE: 03/31/2022 SERVICE TIME: 3:42 PM While rounding on the unit and per recommendation by the pt's nurse, I attempted to visit with the pt and he was on the phone. To contact the Spiritual Care Department: Please call [phone]. SIGNATURE: Chaplain Dung PATIENT NAME: Miroslava Peralta DATE: March 31, 2022 TIME: 4:20 PM PAGER/CONTACT #: [phone] [facility] CASE MGT IN[facility] [id number] Author: MARGARITA Valdes Service: ? Author Type: Central Supply Tech Type: Care Mgt Initial Assessment Filed: 03/31/2022 10:50 AM Note Text: CARE MANAGEMENT: ASSESSMENT AND DISCHARGE PLAN SERVICE DATE: March 31, 2022 SERVICE TIME: 10:45 AM PRIMARY CARE PHYSICIAN: Navin Ackerman MD ADMISSION STATUS: Inpatient Needs Prior to Discharge: To Be Determined;Home Care Order MED[facility]: 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 Last discharge within 30 days: No Advance Directive: Current Advance Directive: None Litigation Secretary Attempted to Assist with AD Completion: Yes Action: Education Provided Health LiteracyHow often do you need to have someone help you when you read instructions, pamphlets, or other written material from your doctor or pharmacy? : 1 - Never How confident are you filling out medical forms by yourself?: 1 - Extremely If Patient scores > 3 on either question, the following interventions were put into place:: Patient did not score > 3 on either question. Baseline Mental Status Prior to this Illness what was the patient's Baseline Mental Status?: Alert AND Oriented Prior to this illness, has anyone described the patient having any of the following behaviors?: Not Applicable Relationship of the informant to the patient:: Self Functional Status: Independent Does Patient Currently Receive Any Community Services or Home Care?: None Equipment Prior to Admission: Walker Has the Patient Been in a Mcfp Facility in the Past 30 days?: No SOCIAL: Living Arrangements: Home Lives With: Alone Financial Resources: Retired Primary Contact: Extended Emergency Contact Information Primary Emergency Contact: Saima Peralta Mobile Relation: Ex Spouse Secondary Emergency Contact: GWEN VillaltaAilin Mobile Relation: Daughter Supportive Patient Contact:: Yes Caregiver AssessmentCaregiver is ready, willing and able to meet the patient's needs as recommended by the inter-professional team:: Yes Does the patient have an acute stroke diagnosis, or has the patient had a stroke during this admission?: No Patient's transition needs and plan for meeting these needs: [facility] Patient's perception of need for this admission: pain Medication Adherance I am convinced of the importance of my prescription medication: 0 - Agree Completely I worry that my prescription medication will do more harm than good to me : 0 - Disagree Completely I feel financially burdened by my [id number] expenses for my prescription medication:: 0 - Disagree Completely Risk Score: 0 Patient is categorized as: Low risk < 2 Are you interested in bedside delivery of your medications? No Is Patient Psychosocially Complex?: No ASSESSMENT AND PLAN: Medical Needs: Medical Needs: Wound Care - active or potential Psychosocial Needs: Psychosocial Needs: None FREEDOM OF CHOICE EXPLAINED: [place] of Choice Given: Yes Level of Care Discussed: Home Care Financial Disclosure Provided: Yes Financial Disclosure Comments: to pt Provider List: Home Care Provider list within the patient's requested geographic area shared with the patient/family: No Quality and resource use metrics shared with the patient that are relevant to the patient's goals of care and treatment preferences:: No Reason: Pt declines list and agreeable to anyone in network POTENTIAL TRANSITION PLANS Home Care SW met pt bedside for assessment. Pt lives at home in an apartment that has 21 steps up to his unit. Pt reports baseline independence with ADLs and iADLs. Pt had L3-L5 lami with small L lateral durotomy 03/20/22. Pt returned home with no therapy needs at that time. SW explained PT recommendations and provided FOC. Pt agreeable to HHC and sts no preference in provider. SW sent referrals. Pt will need F2F. Friends to transport at [place]. SIGNATURE: MARGARITA Valdes PATIENT NAME: Miroslava Peralta DATE: March 31, 2022 TIME: 10:45 AM PAGER/CONTACT #: [phone] [facility] NURSING PROGon 03-31-2022 NURSING PROG HNO ID: [id number] Author: Carmela Borrero RN Service: ? Author Type: Registered Nurse Type: Nursing Progress Note Filed: 04/01/2022 4:22 AM Note Text: Nursing Progress Note Patient Name: Miroslava Peralta Patient Location: Daily Note: Pt ambulating around pod with walker reports back pain. Vital signs stable Patient denies pain at this time. Dressing to back clean dry and intact small amount of drainage at base of dressing. Lung sounds clear throughout, pulse ox WNL, on RA. Patient resting comfortably, bed alarm on and functioning, call light with in reach, will continue to monitor. 0400-NPO since 0000 for procedure today. Dressing to back saturated bloody drainage. Dressing changed and reinforced will ctm This note was completed by: Carmela Borrero [facility] NURSING PROG HNO ID: [id number] Author: Karo Carvalho RN Service: ? Author Type: Registered Nurse Type: Nursing Progress Note Filed: 03/31/2022 10:44 AM Note Text: Nursing Progress Note Patient Name: Miroslava Peralta Patient Location: / Daily Note: This note was completed by: Karo Carvalho vss answer questions up gait steady lungs cl po with in normal limits.No c/o cp no sob c/o back pain incision sutures in place. and bleeding dressing changed. pain 3/10 dull aching. medicated as needed. Up in chair numbness of lower extremities Normal [facility] THERAPY NTon 03-31-2022 THERAPY NT HNO ID: [id number] Author: Melissa Jose, PT, DPT Service: ? Author Type: Physical Therapist Type: Therapy (PT/OT/Speech/Resp) Filed: 03/31/2022 9:50 AM Note Text: Physical Therapy Treatment SERVICE DATE: 03/31/2022 SERVICE TIME: 924 to 941 ROOM: [place] [address] Recommended Discharge Disposition: Home PT Recommended Discharge Disposition Comments: Patient reports he feels ready to return home. he is requesting an elevated commode for toilet as he has a low toilet seat at home and plops onto it which increases his pain levels. resume Home PT services. Anticipated Discharge Needs: Physical Assist at Home Physical Assist at Home for: Cleaning;Laundry;Stairs;Hanna pping;Transportation Recommended Discharge Equipment: Commode-Raised PT 6 Clicks Score: 24 Patient has reached PLOF level and met all acute care PT goals. Acute care PT services to be discharged at this time. Precautions/Activity Restrictions: Fall Risk;Spine Current Hospital Course: pain medication given; awaiting consult from spinal surgeon due to increased bleeding from inicision site Reason for Hospital Admission: increased pain following laminectomy on 03/20/22 Relevant Past Medical History: HTN, R CARMELINA, bilateral shoulder/elbow sx, hx substance abuse. L3-5 laminectomy 03/20/22 Response to Therapy Interventions: Good participation in activities, Improved tolerance for activity, Notable progression with functional activities/skills, On-track to achieve discharge goals Assessment Comments: Patient with some cognitive impairments, unable to recall spinal precautions that were discussed yesterday during PT session and patient repeats same conversations as yesterday during PT session. uses humor to cover up cognitive deficits Physical Therapy Problem List: Cognitive Deficit;Education Deficit;Pain;Safety Deficits;Functional Mobility Impairment;Balance Impaired Home Environment Patient Lives With: Self/Alone Assistance Available: PRN (Friends and neighbor will come assist as needed) Entry To Home: Stairs;With Rail (left side on ascending side) Number Of Stairs Into Home: 21 Number Of Stairs To Bed/Bath: 0 Tub/Shower Type: Walk-in shower Laundry: uses neighbors laundry, friends will assist Equipment Owned: Wheeled Walker Prior Functional Level: Within Functional Limits;History of Falls Prior Functional Level Comments: IND ADL/IADL, amb w/o device, drives, retired, one fall on ice recently Patient Report: My pain is the same it has been for 2 years CURRENT FUNCTIONAL STATUS: Most recent performance Current Functional Mobility Assist Level Additional Information Rolling Supine to Sit Supervision;Additional Information Sit to Supine Supervision;Additional Information Verbal cues to maintain spinal precautions using log roll technique Scooting Sit to Stand Modified Independent Stand to Sit Modified Independent Bed to Chair Modified Independent Bed To Chair Transfer Type: Stepping Bed To Chair Transfer Equipment: Wheeled Walker Stand step and ambulatory transfers with WW at mod I level Toilet/Commode Gait Modified Independent Gait Device: Wheeled Walker Gait Distance (feet): 300 Stairs Supervision Stairs Device: Rail Number of Stairs: 10 Patient ascended/descended 10 6 inch steps using left side rail only when ascending to mimic home set-up. Pt able to recall up with strong leg, down with weaker leg Curb Step Car Transfer Blank palencia indicate activity not attempted Gait Deviations Left Lower Extremity: Knee stability during stance phase decreased;Knee flexion during stance increased General Deviations/Observations: Cassandra decreased;Narrow Base of Support Balance: Static Standing;Dynamic Standing Static Standing Balance: Good Patient able to maintain balance without handhold support, limited postural sway Dynamic Standing Balance: Fair Patient accepts minimal challenge, able to maintain balance while turning head/trunk JH-HLM: 8: Walk 250 feet or more Learning/Educational Needs: Discharge Plan;Disease Process;Equipment;Functiona l Activities/Mobility;Plan of Care;Precautions;Pain Management;Safety Goals for Plan of Care: Patient /Caregiver Goals: Go Home Goals: Patient will demonstrate understanding of importance of mobility during hospital stay and resolve all functional needs identified.;Patient will demonstrate progress with functional mobility to allow safe discharge to home with available support and/or physical assistance. Progress Toward Goals: Progressing as expected Rehab Potential: Excellent Patient will be discontinued from Physical Therapy when no further skilled needs are identified in this setting. PLAN: PT Frequency: Discontinue therapy services Reasons Therapy Services Discontinued: Goals met Plan of Care developed with: Patient TREATMENT INTERVENTIONS: Therapy Diagnosis: Reduced mobility-other;Muscle Weakness (generalized) Interventions (more content not included)... [facility] THERAPY NT HNO ID: [id number] Author: JULIA Chavez/L Service: Occupational Therapy Author Type: Occupational Therapist Type: Therapy (PT/OT/Speech/Resp) Filed: 03/31/2022 8:49 AM Note Text: OCCUPATIONAL THERAPY MISSED VISIT SERVICE DATE: 03/31/2022 SERVICE TIME: 847 to 847 ROOM: [place] [address] Patient not seen due to No Skilled Needs. Discussed with patient. Pain is under control, no concerns for ADLs, ind in the room. Only concern is being able to acquire elevated toilet seat for home. OT orders discontinued due to no needs at this time. Pt verbalizes understanding. SIGNATURE: JULIA Chavez/Madhuri PATIENT NAME: Miroslava Peralta DATE: March 31, 2022 TIME: 8:48 AM [facility] TYPE AND SCREENon 03-31-2022 ABO A [facility] Comment on above: Order Comment: Speci men Type: BLOOD SPECIMENOrdering Facility: [facility] Address: [address] [place] [address] Performed By: #### T SCR ####[facility] [id number] [address] [place] HISTORICAL AB SCR STATUS Negative [facility] Comment on above: Order Comment: Speci men Type: BLOOD SPECIMENOrdering Facility: [facility] Address: [address] [place] [address] Performed By: #### T SCR ####[facility] [id number] [address] [place] Rh Nom (Bld) Positive [facility] Comment on above: Order Comment: Speci men Type: BLOOD SPECIMENOrdering Facility: [facility] Address: [address] [place] [address] Performed By: #### T SCR ####[facility] [id number] [place] [address] [facility] TYPE AND SCREEN EXPIRATION 04/03/2022 23:59 [facility] Comment on above: Order Comment: Speci men Type: BLOOD SPECIMENOrdering Facility: [facility] Address: [address] [place] [address] Performed By: #### T SCR ####[facility] [id number] [place] [id number] [facility] NURSING PROGon 03-30-2022 NURSING PROG HNO ID: [id number] Author: Rachel Villanueva RN Service: Nursing Author Type: Registered Nurse Type: Nursing Progress Note Filed: 03/30/2022 1:55 PM Note Text: Nursing Progress Note Patient Name: Miroslava Peralta Patient Location: [place] [address] [address] Daily Note: 0738: Pt AxOx3, PERRLA, speech clear and coherent, pleasantly follows commands, hand grasps strong and equal bilaterally, no arm drift noted, foot push/pulls strong and equal bilaterally, no leg drift noted, baseline numbness and tingling to BLE, lungs audible clear in all lobes, no cough or sob noted, tolerating room air, all pulses palpable, bowel sounds active x4, urinating without difficulty, skin intact minus bruising to coccyx and surgical incision to lumbar spine. Pt's lumbar spine incision well approximated with bruising, moderate bleeding, dressing changed, ambulates x1 assist with walker. 1147: Pt seen at bedside with Neurosurgery PA, concerned for moderate bleeding to incision site. Dressing changed by PA. 1354: Patient ambulated pod with walker independently. Dressing to lumbar spine changed by this RN due to leaking from bottom of dressing. This note was completed by: Rachel Villanueva [facility] THERAPY NTon 03-30-2022 THERAPY NT HNO ID: [id number] Author: Melissa Jose, PT, DPT Service: ? Author Type: Physical Therapist Type: Therapy (PT/OT/Speech/Resp) Filed: 03/30/2022 9:34 AM Note Text: Physical Therapy Evaluation SERVICE DATE: 03/30/2022 SERVICE TIME: 848 ROOM: [place] [address] Recommended Discharge Disposition: Home PT Recommended Discharge Disposition Comments: Patient reports he feels ready to return home. he is requesting an elevated commode for toilet as he has a low toilet seat at home and plops onto it which increases his pain levels. resume Home PT services. Anticipated Discharge Needs: Physical Assist at Home Physical Assist at Home for: Cleaning;Laundry;Stairs;Hanna pping;Transportation Recommended Discharge Equipment: Commode-Raised PT 6 Clicks Score: 24 Precautions/Activity Restrictions: Fall Risk;Spine Current Hospital Course: pain medication given Reason for Hospital Admission: increased pain following laminectomy on 03/20/22 Relevant Past Medical History: HTN, R CARMELINA, bilateral shoulder/elbow sx, hx substance abuse. L3-5 laminectomy 03/20/22 Response to Therapy Interventions: Good participation in activities, Improved tolerance for activity, On-track to achieve discharge goals, Notable progression with functional activities/skills Assessment Comments: Patient with little pain this date. Able to demonstrate safety with functional ambulation using his walker and stair navigation with unilateral rail to mimic home set-up. Patient reports he feels ready to go back home Physical Therapy Problem List: Cognitive Deficit;Education Deficit;Pain;Safety Deficits;Functional Mobility Impairment;Balance Impaired Home Environment Patient Lives With: Self/Alone Assistance Available: PRN (Friends and neighbor will come assist as needed) Entry To Home: Stairs;With Rail (left side on ascending side) Number Of Stairs Into Home: 21 Number Of Stairs To Bed/Bath: 0 Tub/Shower Type: Walk-in shower Laundry: uses neighbors laundry, friends will assist Equipment Owned: Wheeled Walker Prior Functional Level: Within Functional Limits;History of Falls Prior Functional Level Comments: IND ADL/IADL, amb w/o device, drives, retired, one fall on ice recently Patient Report: my back feels fine, it's this pain in my right buttocks that really bothers me at times Reviewed spinal precautions with patient. He is able to recall twisting but needed reminders on avoiding significant bending or lifting. CURRENT FUNCTIONAL STATUS: Most recent performance Current Functional Mobility Assist Level Additional Information Rolling Supine to Sit Supervision;Additional Information Verbal cues/reminders provided to patient on log roll technique to maintain spinal precautions. Pt admits he does not always perform bed mobility correctly to protect back Sit to Supine Supervision Scooting Sit to Stand Supervision Stand to Sit Supervision;Additional Information Verbal cues from PT to control descent upon sitting to prevent plopping to protect spine and avoid increased pain Bed to Chair Supervision;Additional Information Bed To Chair Transfer Type: Stepping Bed To Chair Transfer Equipment: Wheeled Walker Stand step and ambulatory transfers with WW at supervision level, progressed to Mod i with repetition Toilet/Commode Gait Supervision Gait Device: Wheeled Walker Gait Distance (feet): 350 Stairs Supervision;Additional Information Stairs Device: Rail Number of Stairs: 10 Patient ascended/descended 10 6 inch steps using left side rail only when ascending to mimic home set-up. Pt able to recall up with strong leg, down with weaker leg Curb Step Car Transfer Blank palencia indicate activity not attempted General Deviations/Observations: Cassandra decreased;Narrow Base of Support Balance: Static Standing;Dynamic Standing Static Standing Balance: Good Patient able to maintain balance without handhold support, limited postural sway Dynamic Standing Balance: Fair Patient accepts minimal challenge, able to maintain balance while turning head/trunk JH-HLM: 8: Walk 250 feet or more Learning/Educational Needs: Discharge Plan;Disease Process;Equipment;Functiona l Activities/Mobility;Plan of Care;Precautions;Pain Management;Safety Goals for Plan of Care: Patient /Caregiver Goals: Go Home Goals: Patient will demonstrate understanding of importance of mobility during hospital stay and resolve all functional needs identified.;Patient will demonstrate progress with functional mobility to allow safe discharge to home with available support and/or physical assistance. Progress Toward Goals: Progressing as expected Rehab Potential: Excellent Patient will be discontinued from Physical Therapy when no further skilled needs are identified in this setting. PLAN: PT Frequency: Once daily Plan of Care developed with: Patient TREATMENT INTERVENTIONS: Therapy Diagnosis: Reduced mobility- (more content not included)... Normal [facility] CBC W Auto Differential pane l (Bld)on 03-29-2022 Basophils (Bld) [#/Vol] 10*3/uL Normal <0.11 [facility] Comment on above: Order Comment: Speci men Type: BLOOD SPECIMEN Ordering Facility: [facility] Address: [address] [place] [address] Performed By: #### 2 4323-06, 1988-03 #### [facility] CLIA [id number] [address] [place] [address] [place] Basophils/100 WBC (Bld) 0.2 % Normal [facility] Comment on above: Order Comment: Speci men Type: BLOOD SPECIMEN Ordering Facility: [facility] Address: [address] [place] [address] Performed By: #### 2 4323-06, 1988-03 #### [facility] CLIA [id number] [address] [place] [address] [place] Differential cell count method Nom (Bld) Auto Normal [facility] Comment on above: Order Comment: Speci men Type: BLOOD SPECIMEN Ordering Facility: [facility] Address: [address] [place] [address] Performed By: #### 2 4323-06, 1988-03 #### [facility] CLIA [id number] [address] [place] [address] [place] Eosinophils (Bld) [#/Vol] 10*3/uL Normal <0.46 [facility] Comment on above: Order Comment: Speci men Type: BLOOD SPECIMEN Ordering Facility: [facility] Address: [address] [place] [address] Performed By: #### 2 4323-06, 1988-03 #### [facility] CLIA [id number] [address] [place] [address] [place] Eosinophils/100 WBC (Bld) 0.0 % Normal [facility] Comment on above: Order Comment: Speci men Type: BLOOD SPECIMEN Ordering Facility: [facility] Address: [address] [place] [address] Performed By: #### 2 4323-06, 1988-03 #### [facility] CLIA [id number] [address] [place] [address] [place] Erythrocyte distribution width (RBC) [Ratio] 12.0 % Normal 11.5-15.0 [facility] Comment on above: Order Comment: Speci men Type: BLOOD SPECIMEN Ordering Facility: [facility] Address: [address] [place] [address] Performed By: #### 2 4323-06, 1988-03 #### [facility] CLIA [id number] [address] [place] [address] [place] Hematocrit (Bld) [Volume fraction] 42.3 % Normal 39.0-51.0 [facility] Comment on above: Order Comment: Speci men Type: BLOOD SPECIMEN Ordering Facility: [facility] Address: [address] [place] [address] Performed By: #### 2 4323-06, 1988-03 #### [facility] CLIA [id number] [address] [place] [address] [place] Hemoglobin (Bld) [Mass/Vol] 14.2 g/dL Normal 13.0-17.0 [facility] Comment on above: Order Comment: Speci men Type: BLOOD SPECIMEN Ordering Facility: [facility] Address: [address] [place] [address] Performed By: #### 2 4323-06, 1988-03 #### [facility] CLIA [id number] [address] [place] [address] [place] IMMATURE GRAN % 0.2 % Normal [facility] Comment on above: Order Comment: Speci men Type: BLOOD SPECIMEN Ordering Facility: [facility] Address: [address] [place] [address] Performed By: #### 2 4323-06, 1988-03 #### [facility] CLIA [id number] [address] [place] [address] [place] IMMATURE GRAN ABS <0.03 Normal <0.10 [facility] Comment on above: Order Comment: Speci men Type: BLOOD SPECIMEN Ordering Facility: [facility] Address: [address] [place] [address] Performed By: #### 2 4323-06, 1988-03 #### [facility] CLIA [id number] [address] [place] [address] [place] Lymphocytes (Bld) [#/Vol] 0.41 10*3/uL Low 1.00-4.00 [facility] Comment on above: Order Comment: Speci men Type: BLOOD SPECIMEN Ordering Facility: [facility] Address: [address] [place] [address] Performed By: #### 2 4323-06, 1988-03 #### [facility] CLIA [id number] [address] [place] [address] [place] Lymphocytes/100 WBC (Bld) 4.8 % Normal [facility] Comment on above: Order Comment: Speci men Type: BLOOD SPECIMEN Ordering Facility: [facility] Address: [address] [place] [address] Performed By: #### 2 4323-06, 1988-03 #### [facility] CLIA [id number] [address] [place] [address] [place] MCH (RBC) [Entitic mass] 31.6 pg Normal 26.0-34.0 [facility] Comment on above: Order Comment: Speci men Type: BLOOD SPECIMEN Ordering Facility: [facility] Address: [address] [place] [address] Performed By: #### 2 4323-06, 1988-03 #### [facility] CLIA [id number] [address] [place] [address] [place] MCHC (RBC) [Mass/Vol] 33.6 g/dL Normal 30.5-36.0 [facility] Comment on above: Order Comment: Speci men Type: BLOOD SPECIMEN Ordering Facility: [facility] Address: [address] [place] [address] Performed By: #### 2 4323-06, 1988-03 #### [facility] CLIA [id number] [address] [place] [address] [place] MCV (RBC) [Entitic vol] 94.2 fL Normal 80.0-100.0 [facility] Comment on above: Order Comment: Speci men Type: BLOOD SPECIMEN Ordering Facility: [facility] Address: [address] [place], [place] [id number] Performed By: #### 2 4323-06, 1988-03 #### [facility] CLIA [id number] [address] [place] [address] [place] Monocytes (Bld) [#/Vol] 0.18 10*3/uL Normal <0.87 [facility] Comment on above: Order Comment: Speci men Type: BLOOD SPECIMEN Ordering Facility: [facility] Address: [address] [place] [address] Performed By: #### 2 4323-06, 1988-03 #### [facility] CLIA [id number] [address] [place] [address] [place] Monocytes/100 WBC (Bld) 2.1 % Normal [facility] Comment on above: Order Comment: Speci men Type: BLOOD SPECIMEN Ordering Facility: [facility] Address: [address] [place] [address] Performed By: #### 2 4323-06, 1988-03 #### [facility] CLIA [id number] [address] [place] [address] [place] Neutrophils (Bld) [#/Vol] 7.88 10*3/uL High 1.45-7.50 [facility] Comment on above: Order Comment: Speci men Type: BLOOD SPECIMEN Ordering Facility: [facility] Address: [address] [place] [address] Performed By: #### 2 4323-06, 1988-03 #### [facility] CLIA [id number] [address] [place] [address] [place] Neutrophils/100 WBC (Bld) 92.7 % Normal [facility] Comment on above: Order Comment: Speci men Type: BLOOD SPECIMEN Ordering Facility: [facility] Address: [address] [place], [place] [address] Performed By: #### 2 4323-06, 1988-03 #### [facility] CLIA [id number] [address] [place] [address] [place] Nucleated RBC (Bld) [#/Vol] 10*3/uL Normal <0.01 [facility] Comment on above: Order Comment: Speci men Type: BLOOD SPECIMEN Ordering Facility: [facility] Address: [address] [place], [place] [address] Performed By: #### 2 4323-06, 1988-03 #### [facility] CLIA [id number] [address] [place] [address] [place] Nucleated RBC/100 WBC (Bld) [Ratio] 0.0 /100 WBC Normal [facility] Comment on above: Order Comment: Speci men Type: BLOOD SPECIMEN Ordering Facility: [facility] Address: [address] [place] [address] Performed By: #### 2 4323-06, 1988-03 #### [facility] CLIA [id number] [address] [place] [address] [place] Platelet mean volume (Bld) [Entitic vol] 9.6 fL Normal 9.0-12.7 [facility] Comment on above: Order Comment: Speci men Type: BLOOD SPECIMEN Ordering Facility: [facility] Address: [address] [place], [place] [address] Performed By: #### 2 4323-06, 1988-03 #### [facility] CLIA [id number] [address] [place] [address] [place] Platelets (Bld) [#/Vol] 258 10*3/uL Normal 150-400 [facility] Comment on above: Order Comment: Speci men Type: BLOOD SPECIMEN Ordering Facility: [facility] Address: [address] [place], [place] [id number] Performed By: #### 2 4323-06, 1988-03 #### [facility] CLIA [id number] [address] [place] [address] [place] RBC (Bld) [#/Vol] 4.49 10*6/uL Normal 4.20-6.00 [facility] Comment on above: Order Comment: Speci men Type: BLOOD SPECIMEN Ordering Facility: [facility] Address: [address] [place], [place] [address] Performed By: #### 2 4323-06, 1988-03 #### [facility] CLIA [id number] [address] [place] [address] [place] WBC (Bld) [#/Vol] 8.51 10*3/uL Normal 3.70-11.00 [facility] Comment on above: Order Comment: Speci men Type: BLOOD SPECIMEN Ordering Facility: [facility] Address: [address] [place], [place] [address] Performed By: #### 2 4323-06, 1988-03 #### [facility] CLIA [id number] [address] [place] [address] [place] CRP SerPl-mCncon 03-29-2022 CRP [Mass/Vol] mg/L Normal <0.9 [facility] Comment on above: Order Comment: Speci men Type: BLOOD SPECIMEN Ordering Facility: [facility] Address: [address] [place], [place] [address] Performed By: #### 2 4323-06, 1988-03 #### [facility] CLIA [id number] [address] [place] [address] [place] AMISHA Comprehensive metabolic 2000 panelon 03-29-2022 Albumin [Mass/Vol] 4.1 g/dL Normal 3.9-4.9 [facility] Comment on above: Order Comment: Speci men Type: BLOOD SPECIMEN Ordering Facility: [facility] Address: [address] [place], [place] [address] Performed By: #### 2 4323-06, 1988-03 #### [facility] CLIA [id number] [address] [place] [address] [place] ALP [Catalytic activity/Vol] 56 U/L Normal 38-113 [facility] Comment on above: Order Comment: Speci men Type: BLOOD SPECIMEN Ordering Facility: [facility] Address: [address] [place], [place] [address] Performed By: #### 2 4323-06, 1988-03 #### [facility] CLIA [id number] [address] [place] [address] [place] ALT [Catalytic activity/Vol] 10 U/L Normal 10-54 [facility] Comment on above: Order Comment: Speci men Type: BLOOD SPECIMEN Ordering Facility: [facility] Address: [address] [place], [place] [address] Performed By: #### 2 4323-06, 1988-03 #### [facility] CLIA [id number] [address] [place] [address] [place] Anion gap [Moles/Vol] 12 mmol/L Normal 9-18 [facility] Comment on above: Order Comment: Speci men Type: BLOOD SPECIMEN Ordering Facility: [facility] Address: [address] [place] [address] Performed By: #### 2 4323-06, 1988-03 #### [facility] CLIA [id number] [address] [place] [address] [place] AST [Catalytic activity/Vol] 13 U/L Low 14-40 [facility] Comment on above: Order Comment: Speci men Type: BLOOD SPECIMEN Ordering Facility: [facility] Address: [address] [place] [address] Performed By: #### 2 4323-06, 1988-03 #### [facility] CLIA [id number] [address] [place] [address] [place] Bilirubin [Mass/Vol] 0.3 mg/dL Normal 0.2-1.3 [facility] Comment on above: Order Comment: Speci men Type: BLOOD SPECIMEN Ordering Facility: [facility] Address: [address] [place], [place] [address] Performed By: #### 2 4323-06, 1988-03 #### [facility] CLIA [id number] [address] [place] [address] [place] Calcium [Mass/Vol] 9.2 mg/dL Normal 8.5-10.2 [facility] Comment on above: Order Comment: Speci men Type: BLOOD SPECIMEN Ordering Facility: [facility] Address: [address] [place], [place] [address] Performed By: #### 2 4323-06, 1988-03 #### [facility] CLIA [id number] [place] [address] [place] Chloride [Moles/Vol] 100 mmol/L Normal 97-105 [facility] Comment on above: Order Comment: Speci men Type: BLOOD SPECIMEN Ordering Facility: [facility] Address: [address] [place] [address] Performed By: #### 2 43201-27, 1988-03 #### [facility] CLIA [id number] [address] [place] [address] [place] CO2 [Moles/Vol] 24 mmol/L Normal 22-30 [facility] Comment on above: Order Comment: Speci men Type: BLOOD SPECIMEN Ordering Facility: [facility] Address: [address] [place] [address] Performed By: #### 2 43201-27, 1988-03 #### [facility] CLIA [id number] [address] [place] [address] [place] Creatinine [Mass/Vol] 0.95 mg/dL Normal 0.73-1.22 [facility] Comment on above: Order Comment: Speci men Type: BLOOD SPECIMEN Ordering Facility: [facility] Address: [address] [place] [address] Performed By: #### 2 4323-06, 1988-03 #### [facility] CLIA [id number] [address] [place] [address] OF [place]HA ESTIMATED GLOMERULAR FILTRATION RATE 85 mL/min/1.73m??? Normal >=60 [facility] Comment on above: Order Comment: Speci men Type: BLOOD SPECIMEN Ordering Facility: [facility] Address: [address] [place] [address] Result Comment: Kalani mated Glomerular Filtration Rate (eGFR) is calculated using the 2020 CKD-EPI creatinine equation. This equation utilizes serum creatinine, sex, and age as parameters. The creatinine assay has traceable calibration to isotope dilution-mass spectrometry. Refer to KDIGO guidelines for clinical interpretation. In patients with unstable renal function, e.g. those with acute kidney injury, the eGFR may not accurately reflect actual GFR. Performed By: #### 2 1988-03 #### [facility] CLIA [id number] [address] [place] [address] [place] Glucose [Mass/Vol] 130 mg/dL High 74-99 [facility] Comment on above: Order Comment: Fernanda franks Type: BLOOD SPECIMEN Ordering Facility: [facility] Address: [address] [place] [address] Result Comment: The [place] Diabetes Association (ADA) provides guidance for cutoff values for fasting glucose and random glucose. The ADA defines fasting as no caloric intake for at least 8 hours. Fasting plasma glucose results between 100 to 125 mg/dL indicate increased risk for diabetes (prediabetes). Fasting plasma glucose results greater than or equal to 126 mg/dL meet the criteria for diagnosis of diabetes. In the absence of unequivocal hyperglycemia, results should be confirmed by repeat testing. In a patient with classic symptoms of hyperglycemia or hyperglycemic crisis, random plasma glucose results greater than or equal to 200 mg/dL meet the criteria for diagnosis of diabetes. Reference: Standards of Medical Care in Diabetes 2016, [place] Diabetes Association. Diabetes Care. 2016.39(Suppl 1). Performed By: #### 2 1988-03 #### [facility] CLIA [id number] [address] [place] [address] [place] Potassium [Moles/Vol] 4.8 mmol/L Normal 3.7-5.1 [facility] Comment on above: Order Comment: Fernanda franks Type: BLOOD SPECIMEN Ordering Facility: [facility] Address: [address] [place] [address] Performed By: #### 2 1988-03 #### [facility] CLIA [id number] [address] [place] [address] [place] Protein [Mass/Vol] 7.1 g/dL Normal 6.3-8.0 [facility] Comment on above: Order Comment: Fernanda franks Type: BLOOD SPECIMEN Ordering Facility: [facility] Address: [address] [place] [address] Performed By: #### 2 1988-03 #### [facility] CLIA [id number] [address] [place] [address] [place] Sodium [Moles/Vol] 136 mmol/L Normal 136-144 [facility] Comment on above: Order Comment: Speci men Type: BLOOD SPECIMEN Ordering Facility: [facility] Address: [address] [place], [place] [address] Performed By: #### 2 4323-8, 1988-03 #### [facility] CLIA [id number] [place] [address] [place] Urea nitrogen [Mass/Vol] 17 mg/dL Normal 9-24 [facility] Comment on above: Order Comment: Speci men Type: BLOOD SPECIMEN Ordering Facility: [facility] Address: [address] [place] [address] Performed By: #### 2 43238, 1988-03 #### [facility] CLIA [id number] [place] [address] [place] ESR Westergren method (Bld) [Velocity]on 03-29-2022 ESR (Bld) [Velocity] 8 mm/h Normal 0-15 [facility] Comment on above: Order Comment: Speci men Type: BLOOD SPECIMEN Ordering Facility: [facility] Address: [address] [place], [place] [address] Performed By: #### 4 537-7 #### [facility] CLIA [id number] [address] [place] [address] [id number] [place] [address] [place] HISTORY PHYSICALon HISTORY PHYSICAL HNO ID: [id number] Author: Kate Yarbrough APRN.DIRECTOR OF TESTING Service: Neurosurgery Author Type: Nurse Practitioner Type: HANDP Filed: 03/29/2022 9:11 PM Note Text: HISTORY AND PHYSICAL EXAMINATION SERVICE DATE: 03/29/2022 SERVICE TIME: 2014 PRIMARY CARE PHYSICIAN: Navin Ackerman MD Subjective CHIEF COMPLAINT: Worsening back pain s/p laminectomy. HPI: This is a 71 year old male with PMHx HTN, OA s/p right hip replacement, remote opiate abuse, and neurogenic claudication. He underwent L3-5 laminectomy 03/20/[address] Portillo and was discharged home 03/22/22. He reports doing well post-op and keeping up with home PT until yesterday evening when he developed severe lumbar pain with radiation into right glute and intermittent electric like pains shooting up to neck. Pt denies any associated weakness, worsening paresthesias (baseline numbness to bilateral hands and mild tingling to bilateral shins and feet), loss of bladder control, or saddle anesthesia. Does report continued leakage of stool which has improved since surgery. He reports he has a very low toilet at home that he plops down onto and he thinks this caused the onset of severe pain. He also reports having to twist quite significantly to wipe after using the toilet. Pt presented to [facility] ED for evaluation where he states he was given dilaudid with significant improvement in pain. He was transferred to today for further evaluation and management by Dr. Portillo. On assessment patient reports feels significantly better. Ambulatory in [place] with walker and no significant pain. 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 - SKIN BIOPSY HX FAMILY HISTORY Problem Relation Age of Onset - Cancer Mother breast cancer - Hypertension Mother - None Father father in train accident at yuni age - Hypertension Sister Social History Tobacco Use - Smoking status: Former Smoker Packs/day: 2.00 Years: 23.00 Pack years: 46.00 Types: Cigarettes Quit date: 11/22/1992 Years since quittin.3 - Smokeless tobacco: Never Used Vaping Use - Vaping Use: Never used Substance Use Topics - Alcohol use: Not Currently Comment: quit in 1991. - Drug use: No Comment: Quit drugs in . oxyCODONE-acetaminophen (PERCOCET) 5-325 mg tablet, Take 1 tablet by mouth every 8 hours as needed for pain for up to 7 days., Disp: 21 tablet, Rfl: 0 docusate sodium (COLACE) 100 mg capsule, Take 1 capsule by mouth twice daily., Disp: 20 capsule, Rfl: 0 methocarbamol (ROBAXIN) 750 mg tablet, Take 1 tablet by mouth four times daily as needed., Disp: 28 tablet, Rfl: 0 gabapentin (NEURONTIN) 300 mg capsule, Take 2 capsules by mouth three times daily for 90 days., Disp: 540 capsule, Rfl: 0 amLODIPine (NORVASC) 10 mg tablet, Take 1 tablet by mouth once daily. (Patient not taking: Reported on 03/19/2022 ), Disp: 90 tablet, Rfl: 1 traZODone (DESYREL) 150 mg tablet, Take 1 tablet by mouth daily at bedtime. (Patient not taking: Reported on 03/19/2022 ), Disp: 90 tablet, Rfl: 1 lisinopril (ZESTRIL, PRINIVIL) 20 mg tablet, Take 1 tablet by mouth once daily. (Patient not taking: Reported on 03/19/2022 ), Disp: 90 tablet, Rfl: 1 omega-3 fatty acids/vitamin e(FISH OIL 1,000 MG CAP), Take one(1) tablet daily by mouth (Patient not taking: ), Disp: , Rfl: 0 ALLERGIES Allergen Reactions - Cardizem [Diltiazem* Other: See Comments panic attack - Diovan [Valsartan] GI Upset Caused nausea - Hyzaar [Losartan-Hy* Other: See Comments Mood change - Lopressor [Metoprol* Other: See Comments no energy, wiped pt out COMPLETE REVIEW OF SYSTEMS: GENERAL: No weight loss, malaise or fevers NECK: Negative for lumps, goiter, pain and significant neck swelling RESPIRATORY: Negative for cough, hemoptysis, wheezing, COPD, dyspnea or shortness of breath CARDIOVASCULAR: Negative for chest pain, leg swelling, CHF or palpitations GI: No nausea, vomiting, or diarrhea : No history of dysuria, frequency or incontinence MUSCULOSKELETAL: see HPI SKIN: Negative for lesions, rash, and itching HEMATOLOGY/LYMPHOLOGY: Negative for prolonged bleeding, bruising easily or swollen nodes ENDOCRINE: Negative for cold or heat intolerance, polyuria, polydipsia and goiter NEURO: N (more content not included)... [facility] NURSING PROGon 03-29-2022 NURSING PROG HNO ID: [id number] Author: Layla Cano RN Service: ? Author Type: Registered Nurse Type: Nursing Progress Note Filed: 03/29/2022 10:53 PM Note Text: Nursing Progress Note Patient Name: Miroslava Peralta Patient Location: Daily Note: Pt A/Ox3. VSS on RA. Up xStandby assist. Pt reports that pain/spasms have improved significantly since being started on steroids. Per pt, pain is not significant in back/incision area but it primarily originating from right buttock/hip area. Dressing to pt back changed r/t leaking blood, cleaned around site. Blood seems to be coming from both the top and bottom of incision. Pt is requesting as assistive device for toileting at home, states that the toilet at home is too low and he finds himself plopping down frequently. Kate with [facility] team notified of pt request, will see what assistive devices can be ordered. In good spirits and reports feeling that he is ready to go home. No s/s of distress. No new issues observed or reported. This note was completed by: Layla Cano [facility] NURSING PROG HNO ID: [id number] Author: Rachel [facility] RN Service: Nursing Author Type: Registered Nurse Type: Nursing Progress Note Filed: 03/29/2022 6:57 PM Note Text: Nursing Progress Note Patient Name: Miroslava Peralta Patient Location: Daily Note: 1220: Pt admitted from [facility] for severe pain s/p laminectomy on 03/20. Pt previously had L3-L5 lami with small L lateral durotomy repair with hospital stay at [facility] from 03/20-03/22. Patient was discharged home on oral pain medication. Last night, patient stated he had severe pain shooting from coccyx down to right buttock and up to neck, he does not contribute any falls, weakness, or sensation changes, just pain. On assessment, AxOx3, PERRLA, speech clear and coherent, pleasantly follows commands, hand grasps strong and equal bilaterally, no arm drift noted, foot push/pulls strong and equal bilaterally, no leg drift noted, BASELINE numbness and tingling to bilateral feet per patient, no headache or dizziness, lungs audible clear in all lobes no cough or sob noted, tolerating room air, all pulses palpable, bowel sounds active x4- passed bedside swallow, continent of bowel and bladder, surgical incision to lumbar spine closed with sutures, bruising noted to site, moderate amount of bloody drainage, site cleansed with normal saline, pat dry, covered with ABD and tape, assist pt with ambulation, difficult to stand immediately, assisted patient out of bed and to bedside recliner, able to lift legs and walk without buckling. 1255: Completed virtual visit with patient and Neurosurgery AMANDO Vinson, all questions addressed. 1637: RN received call from pt's ex- Saima. She asked this RN repeatedly to ensure patient is discharged to a SNF or Acute Rehab because he can not be alone, can not walk up and down the 40 stairs to his apartment . This RN kindly relayed that pt will be seen by PT/OT and their recommendations will be discussed with the doctor, the patient, and the rehabilitation case coordinator. The patient has the right to decline going to a facility even if it is recommended. Saima was displeased with this answer. 1856: Pt ambulated pod with RN and walker. This note was completed by: Rachel Villanueva [facility] SARS-CoV-2 RNA Resp Ql CORIN+p pily 03-29-2022 SARS-CoV-2 (COVID-19) RNA CORIN+probe Ql (Resp) COVID 19 RESULT: SARS-CoV-2 (Agent of COVID-19) Not Detected by RT-PCR or equivalent method. This test has been authorized by FDA under an Emergency Use Authorization (EUA). Normal [facility] Comment on above: Performed By: #### 9 4500-6 #### [facility] CLIA [id number] [facility] CNPNon 03-26-2022 CNPN Telephone (NEADFV) MIROSLAVA PERALTA ([id number]) 1950 [address] [facility]* Date Time Provider Department 03/26/22 BROCK PORTILLOFV During your visit today, we recorded the following information about you: Vanessa Burger [facility] 03/26/2022 12:17 PM Signed Nurse from [facility] at [phone] ext [phone] wanted to speak to the nurse in regards to this patients condition, he is having pain. Krysta Rudd, RN 03/26/2022 12:25 PM Signed Spoke to Carey from [facility] She wanted us to be aware that pt is having a lot of pain in am AND is using Meloxicam AND Naprosyn with his oxy to get it under control Tiffany Garsia PA-C 03/26/2022 1:05 PM Signed Pain in right buttocks, especially in AM. This has been ongoing for years, but recently worsened. He is taking NSAIDS which help. He takes about 5-6 percocet per day. Incision site is ok. Denies incisional pain. Discussed not taking 2 different NSAIDS in the same day. Recommend supplementing tylenol up to 3000mg total per day. He understands and agrees. Ordered hip xray to be completed prior to visit with PCP On 03/30. Allergies As of Date: 03/26/2022 Noted Allergy Reaction CARDIZEM (DILTIAZEM HCL) 03/04/2011 14 - Other: See Comments Comments: panic attack DIOVAN (VALSARTAN) 09/29/2010 8 - GI Upset Comments: Caused nausea HYZAAR (LOSARTAN-HYDROCHLOROTHIAZ* 03/04/2011 14 - Other: See Comments Comments: Mood change LOPRESSOR (METOPROLOL TARTRATE) 03/22/2018 14 - Other: See Comments Comments: no energy, wiped pt out Date Reviewed: 03/21/2022 Reviewed by: Marilee Oliva RN - Fully Assessed Reason for Visit: Nurse from [facility] called [Other] Primary Visit Diagnosis:Pain in right hip [M25.551] Order(s):XR HIP GENERAL 3V PELV/AP/LAT RIGHT [[id number]] Order #: [id number] FUTURE Prescriptions as of 03/26/2022 - docusate sodium (COLACE) 100 mg capsule Take 1 capsule by mouth twice daily. - methocarbamol (ROBAXIN) 750 mg tablet Take 1 tablet by mouth four times daily as needed. - oxyCODONE-acetaminophen (PERCOCET) 5-325 mg tablet Take 1 tablet by mouth every 6 hours as needed for pain for up to 7 days. - gabapentin (NEURONTIN) 300 mg capsule Take 2 capsules by mouth three times daily for 90 days. - amLODIPine (NORVASC) 10 mg tablet Take 1 tablet by mouth once daily. - traZODone (DESYREL) 150 mg tablet Take 1 tablet by mouth daily at bedtime. - lisinopril (ZESTRIL, PRINIVIL) 20 mg tablet Take 1 tablet by mouth once daily. - omega-3 fatty acids/vitamin e(FISH OIL 1,000 MG CAP) Take one(1) tablet daily by mouth Problem List As Of Date 03/26/2022 Noted Resolved Diarrhea [R19.7] 07/31/2010 06/16/2019 Hypertension [I10] 07/31/2010 Sleeping difficulty [G47.9] 09/29/2010 Anxiety [F41.9] 09/29/2010 03/22/2022 Impaired fasting blood sugar [R73.01] 10/02/2010 03/22/2022 S/P hip replacement [Z96.649] 08/07/2014 Shoulder pain, right [M25.511] 09/04/2014 03/22/2022 Primary localized osteoarthrosis of shoulder re*12/12/2014 03/22/2022 S/P shoulder joint replacement [Z96.619] 02/21/2015 Chronic hepatitis C without hepatic coma (HCC) *01/05/2019 Chronic bilateral low back pain without sciatic*12/18/2020 03/22/2022 MGUS (monoclonal gammopathy of unknown signific*03/15/2021 Numbness and tingling of foot [R20.0, R20.2] 07/20/2021 03/22/2022 Former smoker [Z87.891] 02/23/2022 Neurogenic claudication (HCC) [G95.19] 03/20/2022 Obesity, Class I, BMI 30-34.9 [E66.9] 03/20/2022 S/P laminectomy [Z98.890] 03/20/2022 Encounter Status:Closed by TIFFANY GARSIA on 03/26/22 [facility] Basic metabolic 2000 panelon 03-22-2022 Anion gap [Moles/Vol] 7 mmol/L Low 9-18 [facility] Comment on above: Order Comment: Speci men Type: BLOOD SPECIMENOrdering Facility: [facility] Address: [address] [place] [address] Performed By: #### 2 4321-2 ####[facility] [id number] [place] [id number] [place] Calcium [Mass/Vol] 9.4 mg/dL Normal 8.5-10.2 [facility] Comment on above: Order Comment: Speci men Type: BLOOD SPECIMENOrdering Facility: [facility] Address: [address] [place] [address] Performed By: #### 2 4321-2 ####[facility] [id number] [place] [id number] [place] Chloride [Moles/Vol] 103 mmol/L Normal 97-105 [facility] Comment on above: Order Comment: Speci men Type: BLOOD SPECIMENOrdering Facility: [facility] Address: [address] [place] [address] Performed By: #### 2 4321-2 ####[facility] [id number] [place] [id number] [place] CO2 [Moles/Vol] 31 mmol/L High 22-30 [facility] Comment on above: Order Comment: Speci men Type: BLOOD SPECIMENOrdering Facility: [facility] Address: [address] [place] [address] Performed By: #### 2 4321-2 ####[facility] [id number] [place] [id number] [place] Creatinine [Mass/Vol] 0.98 mg/dL Normal 0.73-1.22 [facility] Comment on above: Order Comment: Speci men Type: BLOOD SPECIMENOrdering Facility: [facility] Address: [address] [place] [address] Performed By: #### 2 4321-2 ####[facility] [id number] [place] [address] [place] ESTIMATED GLOMERULAR FILTRATION RATE 82 mL/min/1.73m??? Normal >=60 [facility] Comment on above: Order Comment: Speci men Type: BLOOD SPECIMENOrdering Facility: [facility] Address: [address] [place] [address] Result Comment: Kalani mated Glomerular Filtration Rate (eGFR) is calculated using the 2020 CKD-EPI creatinine equation. This equation utilizes serum creatinine, sex, and age as parameters. The creatinine assay has traceable calibration to isotope dilution-mass spectrometry. Refer to KDIGO guidelines for clinical interpretation. In patients with unstable renal function, e.g. those with acute kidney injury, the eGFR may not accurately reflect actual GFR. Performed By: #### 2 4321-2 ####[facility] [id number] [place] [id number] [place] Glucose [Mass/Vol] 96 mg/dL Normal 74-99 [facility] Comment on above: Order Comment: Speci men Type: BLOOD SPECIMENOrdering Facility: [facility] Address: [address] [place] [address] Result Comment: The [place] Diabetes Association (ADA) provides guidance for cutoff values for fasting glucose and random glucose. The ADA defines fasting as no caloric intake for at least 8 hours. Fasting plasma glucose results between 100 to 125 mg/dL indicate increased risk for diabetes (prediabetes). Fasting plasma glucose results greater than or equal to 126 mg/dL meet the criteria for diagnosis of diabetes. In the absence of unequivocal hyperglycemia, results should be confirmed by repeat testing. In a patient with classic symptoms of hyperglycemia or hyperglycemic crisis, random plasma glucose results greater than or equal to 200 mg/dL meet the criteria for diagnosis of diabetes. Reference: Standards of Medical Care in Diabetes 2016, [place] [employer]. Diabetes Care. 2016.39(Suppl 1). Performed By: #### 2 4321-2 ####[facility] LABORATORYCLIA [id number] [place] [address] [place] Potassium [Moles/Vol] 5.3 mmol/L High 3.7-5.1 [facility] Comment on above: Order Comment: Speci men Type: BLOOD SPECIMENOrdering Facility: [facility] Address: [address] [place] [address] Performed By: #### 2 4321-2 ####[facility] LABORATORYCLIA [id number] [place] [address] [place] Sodium [Moles/Vol] 141 mmol/L Normal 136-144 [facility] Comment on above: Order Comment: Speci men Type: BLOOD SPECIMENOrdering Facility: [facility] Address: [address] [place] [address] Performed By: #### 2 4321-2 ####[facility] LABORATORYCLIA [id number] [place] [address] [place] Urea nitrogen [Mass/Vol] 17 mg/dL Normal 9-24 [facility] Comment on above: Order Comment: Speci men Type: BLOOD SPECIMENOrdering Facility: [facility] Address: [address] [place] [address] Performed By: #### 2 4321-2 ####[facility] LABORATORYCLIA [id number] [address] CBC panel Auto (Bld)on 03-22 Erythrocyte distribution width (RBC) [Ratio] 12.6 % Normal 11.5-15.0 [facility] Comment on above: Order Comment: Speci men Type: BLOOD SPECIMENOrdering Facility: [facility] Address: [address] [place] [address] Performed By: #### 5 8410-2 ####[facility] LABORATORYCLIA [id number] [address] [place] Hematocrit (Bld) [Volume fraction] 42.1 % Normal 39.0-51.0 [facility] Comment on above: Order Comment: Speci men Type: BLOOD SPECIMENOrdering Facility: [facility] Address: [address] [place] [address] Performed By: #### 5 8410-2 ####[facility] LABORATORYCLIA [id number] [address] [place] Hemoglobin (Bld) [Mass/Vol] 13.9 g/dL Normal 13.0-17.0 [facility] Comment on above: Order Comment: Speci men Type: BLOOD SPECIMENOrdering Facility: [facility] Address: [address] [place] [address] Performed By: #### 5 8410-2 ####[facility] LABORATORYCLIA [id number] [place] [id number] [place] MCH (RBC) [Entitic mass] 32.2 pg Normal 26.0-34.0 [facility] Comment on above: Order Comment: Speci men Type: BLOOD SPECIMENOrdering Facility: [facility] Address: [address] [place], [place] [address] Performed By: #### 5 8410-2 ####[facility] LABORATORYCLIA [id number] [address] [place], [place] [address] [facility] MCHC (RBC) [Mass/Vol] 33.0 g/dL Normal 30.5-36.0 [facility] Comment on above: Order Comment: Speci men Type: BLOOD SPECIMENOrdering Facility: [facility] Address: [address] [place], [place] [address] Performed By: #### 5 8410-2 ####[facility] LABORATORYCLIA [id number] [address] [place], [place] [address] [place] MCV (RBC) [Entitic vol] 97.5 fL Normal 80.0-100.0 [facility] Comment on above: Order Comment: Speci men Type: BLOOD SPECIMENOrdering Facility: [facility] Address: [address] [place], [place] [address] Performed By: #### 5 8410-2 ####[facility] LABORATORYCLIA [id number] [address] [place], [place] [address] [place] Nucleated RBC (Bld) [#/Vol] 10*3/uL Normal <0.01 [facility] Comment on above: Order Comment: Speci men Type: BLOOD SPECIMENOrdering Facility: [facility] Address: [address] [place], [place] [address] Performed By: #### 5 8410-2 ####[facility] LABORATORYCLIA [id number] [place] [id number] [facility] Platelet mean volume (Bld) [Entitic vol] 10.0 fL Normal 9.0-12.7 [facility] Comment on above: Order Comment: Speci men Type: BLOOD SPECIMENOrdering Facility: [facility] Address: [address] [place], [place] [address] Performed By: #### 5 8410-2 ####[facility] LABORATORYCLIA [id number] [place] [id number] [facility] [place] Platelets (Bld) [#/Vol] 226 10*3/uL Normal 150-400 [facility] Comment on above: Order Comment: Speci men Type: BLOOD SPECIMENOrdering Facility: [facility] Address: [address] [place] [address] Performed By: #### 5 8410-2 ####[facility] LABORATORYCLIA [id number] [place] [address] [facility] RBC (Bld) [#/Vol] 4.32 10*6/uL Normal 4.20-6.00 [facility] Comment on above: Order Comment: Speci men Type: BLOOD SPECIMENOrdering Facility: [facility] Address: [address] [place] [address] Performed By: #### 5 8410-2 ####[facility] LABORATORYCLIA [id number] [place] [id number] [place] WBC (Bld) [#/Vol] 13.16 10*3/uL High 3.70-11.00 [facility] Comment on above: Order Comment: Speci men Type: BLOOD SPECIMENOrdering Facility: [facility] Address: [address] [place] [address] Performed By: #### 5 8410-2 ####[facility] LABORATORYCLIA [id number] [place] [id number] [facility] CNDSon 03-22-2022 CNDS HNO ID: [id number] Author: Charline Cruz APRN.CNP Service: Hospital Medicine Author Type: Nurse Practitioner Type: Discharge Summary Filed: 03/22/2022 12:36 PM Note Text: Attestation signed by Brock Portillo MD at 03/22/2022 8:11 PM Brock Portillo MD DISCHARGE SUMMARY PATIENT NAME: Miroslava Peralta ADMISSION DATE: 03/20/2022 DISCHARGE DATE: 03/22/2022 Attending Physician: Brock Portillo MD Primary Care Physician: Navin Ackerman MD Code Status: Not on file Highest Readmission Risk Score: 8 The 30 day readmissions risk score is derived from an internally validated risk model which evaluates patient level characteristics, utilization history, medication orders and lab results up until the day of discharge. Patients with a score of 40 or above are considered highest risk for readmission. Specific patient level drivers will be listed at the bottom of the summary. Reason for Hospitalization: L3-5 laminectomy Operations During Hospitalization: L3-5 laminectomy Hospital Course: 71 year old male with past medical history of insomnia, obesity, MGUS, HTN, HCV, and lumbar stenosis with neurogenic claudication who presented for elective lumbar spine surgery. The patient underwent L3-5 laminectomy on 03/20/[address] Portillo. The patient had a small left lateral durotomy during surgery that was repaired primarily. He was placed on bedrest postoperatively and activity level was slowly advanced. He denied positional headache or dizziness. He reported preoperative symptoms of bilateral LE and UE numbness/tingling are the same since surgery. He reported balance has improved since surgery. The patient's pain was controlled with oral regimen. MARIA LUISA drain was removed on POD #2 without complications. The patient was able to tolerate regular diet, void independently, and pass flatus prior to discharge. PT/OT evaluated the patient and recommended home with no needs. The patient was educated on wound care, activity restrictions, and pain medication regimen for discharge. He is scheduled for follow up with Neurosurgery on 04/06/2022. Transitions of Care Critical Issues: SPECIALIST FOLLOW-UP: Follow up with Neurosurgery on 04/06/2022 LABS AND PROCEDURES PENDING AT DISCHARGE: No pending results. Treatment Team: Attending Provider: Brock Portillo MD Consulting: Asad Tovar MD Patient Condition @ Discharge: Stable Discharge Disposition: Home with Self Care PHYSICAL EXAM ON DISCHARGE: BP 146/89 Pulse 73 Temp 36.5 ?C (97.7 ?F) (Oral) Resp 16 Ht 180.3 cm (5' 11 ) Wt 102.1 kg (225 lb) SpO2 96% BMI 31.38 kg/m? GENERAL: Alert, cooperative, and pleasant in no distress. Appears well-developed and well-nourished. LUNGS: Lungs clear to auscultation, no wheezing or rales noted. Good diaphragmatic excursion. CARDIAC: Normal S1 and S2; no rubs, murmurs, or gallops. ABDOMEN: Soft, NTND, BS normal x4. EXTREMITIES: Bilateral lower extremities with 5/5 strength intact. NEURO: Alert and oriented to person, place, and time. Sensation and cognition intact. INCISION: Sutures intact with no drainage or bleeding. MARIA LUISA DRAIN: Removed without complications prior to discharge. Information Provided to Patient: Wound Care - Keep dressing clean and dry for 4 days, remove dressing on post op day 4, then may shower - Do not scrub wound(s) let the soap run down the incision, then pat dry. Please visually inspect your wound(s) at least once daily. If the wound(s) are in a difficult to see location, please use a mirror or have someone else assist with visual inspection. - If you have sutures they are absorbable. These do not need to be removed. Dermabond adhesive was applied to the incision and will peel off by itself as the incision heals. - Do NOT apply ointment or lotion to the incision, such as Neosporin, Bacitracin, or any other healing ointments. - No soaking/submerging in water for at least 2 weeks surgery (no tub bathing, swimming, or hot tubs), ask your surgeon at your first post op appointment regarding further instructions - Monitor incision for signs of infection: increased redness, excessive swelling, persistent drainage, or fevers greater than 101 degrees. Activity - No walking restrictions - Do not lift more than 10 lbs for the first 2 weeks - Do not drive or operate heavy machinery for the first 2 weeks - You may climb steps unless stair climbing has been specifically restricted by your healthcare provider. Be careful when you are coming down the stairs because you may be off-balance. You may need to rest part of the way if you become tired. Try to arrange your activities so that you do not have to climb up and down stairs several times during the day, especially when you first arrive home. - N (more content not included)... [facility] THERAPY NTon 03-22-2022 THERAPY NT HNO ID: [id number] Author: Bharathi Almanzar PTA Service: Physical Therapy Author Type: Cafeteria Director Type: Therapy (PT/OT/Speech/Resp) Filed: 03/22/2022 3:45 PM Note Text: Attestation signed by Berna George PT at 03/25/2022 10:22 AM I reviewed and agree with the documentation corresponding to this therapy visit. SIGNATURE: Berna George PT DATE: March 25, 2022 TIME: 10:21 AM Physical Therapy Treatment SERVICE DATE: 03/22/2022 SERVICE TIME: 1045 to 1127 ROOM: [place] [address] Recommended Discharge Disposition: Home Anticipated Discharge Needs: Physical Assist at Home Physical Assist at Home for: Cleaning;Laundry;Meals;Shop ping;Transportation Recommended Discharge Equipment: Wheeled Walker PT 6 Clicks Score: 21 Precautions/Activity Restrictions: Spine Isolation Type: None Current Hospital Course: L3-5 laminectomy Reason for Hospital Admission: spinal stenosis Relevant Past Medical History: HTN, R CARMELINA, bilateral shoulder/elbow sx, hx substance abuse Physical Therapy Problem List: Education Deficit;Functional Mobility Impairment Treatment Interventions: Energy Conservation Training;Strengthening;Func tional Mobility Training;Balance Training;Modalities;Edema Management;Pain Management Modalities: Ice Home Environment Patient Lives With: Self/Alone Assistance Available: PRN (friends will assist as needed) Entry To Home: Stairs Number Of Stairs Into Home: 21 Number Of Stairs To Bed/Bath: 0 Tub/Shower Type: walk in shower Laundry: uses neighbors laundry, friends will assist Prior Functional Level: Within Functional Limits;History of Falls Prior Functional Level Comments: IND ADL/IADL, amb w/o device, drives, retired, one fall on ice recently CURRENT FUNCTIONAL STATUS: Most recent performance Current Functional Mobility Assist Level Additional Information Rolling Supervision Supine to Sit Supervision Sit to Supine Supervision Scooting Supervision Sit to Stand Stand By Assistance Stand to Sit Supervision Bed to Chair Supervision Bed To Chair Transfer Type: Stepping Bed To Chair Transfer Equipment: Wheeled Walker Toilet/Commode Gait Stand By Assistance Gait Device: Wheeled Walker Gait Distance (feet): 150 Stairs Contact Guard Assistance Stairs Device: Cane;Rail Number of Stairs: 21 Curb Step Car Transfer Blank palencia indicate activity not attempted General Deviations/Observations: Cassandra decreased;Flexed trunk posture Balance: Static Standing;Dynamic Standing Static Standing Balance: Fair Patient able to maintain balance with handhold support, may require occasional minimal assistance Dynamic Standing Balance: Fair Patient accepts minimal challenge, able to maintain balance while turning head/trunk Activity Tolerance: Standing Activity (no reports of headache or dizziness) [facility]: 7: Walk 25 feet or more Learning/Educational Needs: Functional Activities/Mobility;Pain Management;Changes in Plan of Care;Precautions;Safety Goals for Plan of Care: Patient /Caregiver Goals: Go Home Goals: Patient will demonstrate progress with functional mobility to allow safe discharge to home with available support and/or physical assistance. Progress Toward Goals: Progressing as expected Due To: increased output in drain, unsteady gait Rehab Potential: Good Patient will be discontinued from Physical Therapy when no further skilled needs are identified in this setting. PLAN: PT Frequency: Once daily Plan of Care developed with: Patient TREATMENT INTERVENTIONS: Therapy Diagnosis: Reduced mobility-other Interventions Provided: Therapeutic Exercise (82542);Therapeutic Activity (04026);Gait Training (39189) Therapeutic Exercise (60726) Treatment Minutes: 15 $ Therapeutic Exercise (79209) Billed Units: 1 unit Therapeutic Activity (79606) Treatment Minutes: 15 $ Therapeutic Activity (72160) Billed Units: 1 unit Gait Training (57780) Treatment Minutes: 12 $ Gait Training (95716) Billed Units: 1 unit Timed Code Treatment (minutes): 42 Skilled Treatment Time (minutes): 42 Please see discipline specific clinical documentation flowsheet for complete details for this therapy evaluation/treatment. SIGNATURE: Bharathi Alamnzar PTA PATIENT NAME: Miroslava Peralta DATE: March 22, 2022 TIME: 3:44 PM Normal [facility] Basic metabolic 2000 panelon 03-21-2022 Anion gap [Moles/Vol] 9 mmol/L Normal 9-18 [facility] Comment on above: Order Comment: Speci men Type: BLOOD SPECIMENOrdering Facility: [facility] Address: [address] [place] [address] Performed By: #### 2 4321-2 ####[facility] LABORATORYCLIA [id number] [place] [address] [place] Calcium [Mass/Vol] 9.1 mg/dL Normal 8.5-10.2 [facility] Comment on above: Order Comment: Speci men Type: BLOOD SPECIMENOrdering Facility: [facility] Address: [address] [place] [address] Performed By: #### 2 4321-2 ####[facility] LABORATORYCLIA [id number] [place] [address] [place] Chloride [Moles/Vol] 103 mmol/L Normal 97-105 [facility] Comment on above: Order Comment: Speci men Type: BLOOD SPECIMENOrdering Facility: [facility] Address: [address] [place] [address] Performed By: #### 2 4321-2 ####[facility] LABORATORYCLIA [id number] [place] [address] [place] CO2 [Moles/Vol] 24 mmol/L Normal 22-30 [facility] Comment on above: Order Comment: Speci men Type: BLOOD SPECIMENOrdering Facility: [facility] Address: [address] [place] [address] Performed By: #### 2 4321-2 ####[facility] LABORATORYCLIA [id number] [place] [address] [place] Creatinine [Mass/Vol] 0.95 mg/dL Normal 0.73-1.22 [facility] Comment on above: Order Comment: Speci men Type: BLOOD SPECIMENOrdering Facility: [facility] Address: [address] [place] [address] Performed By: #### 2 4321-2 ####[facility] LABORATORYCLIA [id number] [place] [address] [place] ESTIMATED GLOMERULAR FILTRATION RATE 85 mL/min/1.73m??? Normal >=60 [facility] Comment on above: Order Comment: Speci men Type: BLOOD SPECIMENOrdering Facility: [facility] Address: [address] [place] [address] Result Comment: Kalani mated Glomerular Filtration Rate (eGFR) is calculated using the 2020 CKD-EPI creatinine equation. This equation utilizes serum creatinine, sex, and age as parameters. The creatinine assay has traceable calibration to isotope dilution-mass spectrometry. Refer to KDIGO guidelines for clinical interpretation. In patients with unstable renal function, e.g. those with acute kidney injury, the eGFR may not accurately reflect actual GFR. Performed By: #### 2 4321-2 ####[facility] LABORATORYCLIA [id number] [place] [id number] [place] Glucose [Mass/Vol] 145 mg/dL High 74-99 [facility] Comment on above: Order Comment: Fernanda franks Type: BLOOD SPECIMENOrdering Facility: [facility] Address: [address] [place] [address] Result Comment: The [place] Diabetes Association (ADA) provides guidance for cutoff values for fasting glucose and random glucose. The ADA defines fasting as no caloric intake for at least 8 hours. Fasting plasma glucose results between 100 to 125 mg/dL indicate increased risk for diabetes (prediabetes). Fasting plasma glucose results greater than or equal to 126 mg/dL meet the criteria for diagnosis of diabetes. In the absence of unequivocal hyperglycemia, results should be confirmed by repeat testing. In a patient with classic symptoms of hyperglycemia or hyperglycemic crisis, random plasma glucose results greater than or equal to 200 mg/dL meet the criteria for diagnosis of diabetes. Reference: Standards of Medical Care in Diabetes 2016, [place] Diabetes Association. Diabetes Care. 2016.39(Suppl 1). Performed By: #### 2 4321-2 ####[facility] LABORATORYCLIA [id number] [address] [place], [place] [address] [place] Potassium [Moles/Vol] 4.5 mmol/L Normal 3.7-5.1 [facility] Comment on above: Order Comment: Fernanda franks Type: BLOOD SPECIMENOrdering Facility: [facility] Address: [address] [place] [address] Performed By: #### 2 4321-2 ####[facility] LABORATORYCLIA [id number] [place] [address] [place] Sodium [Moles/Vol] 136 mmol/L Normal 136-144 [facility] Comment on above: Order Comment: Fernanda franks Type: BLOOD SPECIMENOrdering Facility: [facility] Address: [address] [place] [address] Performed By: #### 2 4321-2 ####[facility] LABORATORYCLIA [id number] [place] [address] [place] Urea nitrogen [Mass/Vol] 18 mg/dL Normal 9-24 [facility] Comment on above: Order Comment: Fernanda franks Type: BLOOD SPECIMENOrdering Facility: [facility] Address: [address] [place] [address] Performed By: #### 2 4321-2 ####[facility] LABORATORYCLIA [id number] [place] [address] [place] CASE MANAGEMon 03-21-2022 CASE MANAGEM HNO ID: [id number] Author: Delia Valdes RN Service: ? Author Type: Registered Nurse Type: Care Mgt Progress Note Filed: 03/21/2022 4:14 PM Note Text: CARE MANAGEMENT PROGRESS NOTE SERVICE DATE: 03/21/2022 SERVICE TIME: 2:00pm LOS: 1 day Per medical team, no plan for dc today, drain output 280cc. PT continues to recommend home with no skilled needs. SIGNATURE: Delia Valdes RN PATIENT NAME: Miroslava Peralta DATE: March 21, 2022 TIME: 4:13 PM PAGER/CONTACT #: Delia Valdes RN [phone] [facility] CBC panel Auto (Bld)on 03-21 Erythrocyte distribution width (RBC) [Ratio] 12.2 % Normal 11.5-15.0 [facility] Comment on above: Order Comment: Speci men Type: BLOOD SPECIMENOrdering Facility: [facility] Address: [address] [place] [address] Performed By: #### 5 8410-2 ####[facility] LABORATORYCLIA [id number] [address] [place] Hematocrit (Bld) [Volume fraction] 42.1 % Normal 39.0-51.0 [facility] Comment on above: Order Comment: Speci men Type: BLOOD SPECIMENOrdering Facility: [facility] Address: [address] [place] [address] Performed By: #### 5 8410-2 ####[facility] LABORATORYCLIA [id number] [place] [id number] [place] Hemoglobin (Bld) [Mass/Vol] 14.2 g/dL Normal 13.0-17.0 [facility] Comment on above: Order Comment: Speci men Type: BLOOD SPECIMENOrdering Facility: [facility] Address: [address] [place] [address] Performed By: #### 5 8410-2 ####[facility] LABORATORYCLIA [id number] [address] [place] [address] [place] [facility] MCH (RBC) [Entitic mass] 32.3 pg Normal 26.0-34.0 [facility] Comment on above: Order Comment: Speci men Type: BLOOD SPECIMENOrdering Facility: [facility] Address: [address] [place] [address] Performed By: #### 5 8410-2 ####[facility] LABORATORYCLIA [id number] [address] MCHC (RBC) [Mass/Vol] 33.7 g/dL Normal 30.5-36.0 [facility] Comment on above: Order Comment: Speci men Type: BLOOD SPECIMENOrdering Facility: [facility] Address: [address] [place] [address] Performed By: #### 5 8410-2 ####[facility] LABORATORYCLIA [id number] [address] MCV (RBC) [Entitic vol] 95.9 fL Normal 80.0-100.0 [facility] Comment on above: Order Comment: Speci men Type: BLOOD SPECIMENOrdering Facility: [facility] Address: [address] [place] [address] Performed By: #### 5 8410-2 ####[facility] LABORATORYCLIA [id number] [address] Nucleated RBC (Bld) [#/Vol] 10*3/uL Normal <0.01 [facility] Comment on above: Order Comment: Speci men Type: BLOOD SPECIMENOrdering Facility: [facility] Address: [address] [place] [address] Performed By: #### 5 8410-2 ####[facility] LABORATORYCLIA [id number] [address] [place] Platelet mean volume (Bld) [Entitic vol] 9.6 fL Normal 9.0-12.7 [facility] Comment on above: Order Comment: Speci men Type: BLOOD SPECIMENOrdering Facility: [facility] Address: [address] [place], [place] [address] Performed By: #### 5 8410-2 ####[facility] LABORATORYCLIA [id number] [place] [address] [place] Platelets (Bld) [#/Vol] 220 10*3/uL Normal 150-400 [facility] Comment on above: Order Comment: Speci men Type: BLOOD SPECIMENOrdering Facility: [facility] Address: [address] [place], [place] [id number] Performed By: #### 5 8410-2 ####[facility] LABORATORYCLIA [id number] [address] [place] [address] [facility] [place] RBC (Bld) [#/Vol] 4.39 10*6/uL Normal 4.20-6.00 [facility] Comment on above: Order Comment: Speci men Type: BLOOD SPECIMENOrdering Facility: [facility] Address: [address] [place], [place] [id number] Performed By: #### 5 8410-2 ####[facility] LABORATORYCLIA [id number] [address] [place] WBC (Bld) [#/Vol] 13.36 10*3/uL High 3.70-11.00 [facility] Comment on above: Order Comment: Speci men Type: BLOOD SPECIMENOrdering Facility: [facility] Address: [address] [place], [place] [address] Performed By: #### 5 8410-2 ####[facility] LABORATORYCLIA [id number] [place] [id number] [facility] THERAPY NTon 03-21-2022 THERAPY NT HNO ID: [id number] Author: Berna George PT Service: Physical Therapy Author Type: Physical Therapist Type: Therapy (PT/OT/Speech/Resp) Filed: 03/21/2022 11:59 AM Note Text: Physical Therapy Evaluation SERVICE DATE: 03/21/2022 SERVICE TIME: 1032 to 1125 ROOM: [id number] Recommended Discharge Disposition: Home Anticipated Discharge Needs: Physical Assist at Home Physical Assist at Home for: Cleaning;Laundry;Meals;Shop ping;Transportation Recommended Discharge Equipment: Wheeled Walker PT 6 Clicks Score: 18 Patient would benefit from continued PT to achieve goals including safety with all mobility and climb multiple stairs. Precautions/Activity Restrictions: Spine;Lines/Tubes/Drains;Im pulsive with Activity Isolation Type: None Current Hospital Course: L3-5 laminectomy Reason for Hospital Admission: spinal stenosis Relevant Past Medical History: HTN, R CARMELINA, bilateral shoulder/elbow sx, hx substance abuse Response to Therapy Interventions: Good participation in activities, On-track to achieve discharge goals Continue skilled needs due to: Functional mobility/skill impairments Physical Therapy Problem List: Education Deficit;Functional Mobility Impairment Treatment Interventions: Education;Functional Mobility Training Plan for next visit: Bed mobility, Gait training, Exercise instruction/handout, Sit to Stand Transfers, Stairs training, Walker Training Home Environment Patient Lives With: Self/Alone Assistance Available: PRN (friends will assist as needed) Entry To Home: Stairs Number Of Stairs Into Home: 21 Number Of Stairs To Bed/Bath: 0 Tub/Shower Type: walk in shower Laundry: uses neighbors laundry, friends will assist Prior Functional Level: Within Functional Limits;History of Falls Prior Functional Level Comments: IND ADL/IADL, amb w/o device, drives, retired, one fall on ice recently Patient Report: I feel better now that I'm moving. CURRENT FUNCTIONAL STATUS: Most recent performance Current Functional Mobility Assist Level Additional Information Rolling Stand By Assistance (cues for log roll technique) Supine to Sit Stand By Assistance Sit to Supine Stand By Assistance Scooting Supervision Sit to Stand Contact Guard Assistance (cues for hand placement) Stand to Sit Contact Guard Assistance Bed to Chair Contact Guard Assistance Bed To Chair Transfer Type: Stepping Bed To Chair Transfer Equipment: Wheeled Walker;Gait Belt Toilet/Commode Gait Contact Guard Assistance Gait Device: Wheeled Walker;Other: See Comment (gait belt) Gait Distance (feet): 70 feet x 2 Stairs Curb Step Car Transfer Blank palencia indicate activity not attempted General Deviations/Observations: Cassandra decreased;Flexed trunk posture;Step length decreased (cues for safe technique) Balance: Static Standing;Dynamic Standing Static Standing Balance: Fair Patient able to maintain balance with handhold support, may require occasional minimal assistance Dynamic Standing Balance: Fair (partial buckling of bilateral LEs, unsteady, self corrected) Patient accepts minimal challenge, able to maintain balance while turning head/trunk (partial buckling of bilateral LEs, unsteady, self corrected) Activity Tolerance: Standing Activity (no reports of headache or dizziness) -HLM: 7: Walk 25 feet or more Learning/Educational Needs: Discharge Plan;Functional Activities/Mobility;Plan of Care;Precautions;PT In-Hospital Exercise Program;Rehabilitation Techniques and Procedures;Safety Goals for Plan of Care: Patient /Caregiver Goals: Go Home Goals: Patient will demonstrate progress with functional mobility to allow safe discharge to home with available support and/or physical assistance. Progress Toward Goals: Progressing slower than expected Due To: increased output in drain, unsteady gait Rehab Potential: Good Patient will be discontinued from Physical Therapy when no further skilled needs are identified in this setting. PLAN: PT Frequency: Once daily Plan of Care developed with: Patient TREATMENT INTERVENTIONS: Therapy Diagnosis: Reduced mobility-other Interventions Provided: Evaluation;Therapeutic Exercise (05112);Therapeutic Activity (27330);Gait Training (43069) $ Evaluation-Low (34688) Billed Units: 1 unit Therapeutic Exercise (55820) Treatment Minutes: 10 $ Therapeutic Exercise (84984) Billed Units: 1 unit Therapeutic Activity (75825) Treatment Minutes: 15 $ Therapeutic Activity (29077) Billed Units: 1 unit Gait Training (45374) Treatment Minutes: 13 $ Gait Training (66687) Billed Units: 1 unit Training AND education provided in: Anatomy and impact on deficits, Assistive device use, Bed mobility, Benefits of in-hospital mobility, Discharge planning, Exercise program, Expected functional level, Gait pattern, reduction of deviations, Handout issued, Modalities, Role of Physical Therapy The following therapeutic skills were used: Acti (more content not included)... [facility] THERAPY NT HNO ID: [id number] Author: Karis Polanco OT/L Service: Occupational Therapy Author Type: Occupational Therapist Type: Therapy (PT/OT/Speech/Resp) Filed: 03/21/2022 10:33 AM Note Text: Occupational Therapy Evaluation SERVICE DATE: 03/21/2022 SERVICE TIME: 0948 to 1016 ROOM: [id number] Recommended Discharge Disposition: Home Recommended Discharge Disposition Comments: Pt cleared from OT standpoint for d/c home with increased assist from family/friends. Anticipated Discharge Needs: Physical Assist at Home Physical Assist at Home for: Cleaning;Laundry;Meals;Shop ping;Transportation Recommended Discharge Equipment: Wheeled Walker Pt cleared from OT standpoint to d/c home with increased assist PRN once medically cleared. Pt able to verbalize and demonstrate all precautions and adapted technique for ADLs in order to maintain spinal precautions. OT 6 Clicks Score: 24 Precautions/Activity Restrictions: Spine;Lines/Tubes/Drains;Im pulsive with Activity Isolation Type: None Current Hospital Course: L3-5 laminectomy Reason for Hospital Admission: spinal stenosis Relevant Past Medical History: HTN, R CARMELINA, bilateral shoulder/elbow sx, hx substance abuse Response to Therapy Interventions: Cognitive status improvement, Good participation in activities, Improved tolerance for activity, On-track to achieve discharge goals Occupational Therapy Problem List: Education Deficit;Safety Deficits;Impaired Self Care;Decreased Activity Tolerance;Decreased Range Of Motion;Decreased Strength;Functional Mobility Impairment;Balance Impaired;Sensory Deficit Cognition/Communication Deficits Follows Commands: 2-step Commands Attention Deficits: Distractible Treatment Interventions: Education;Self Care / Home Management;Functional Mobility Training Home Environment Patient Lives With: Self/Alone Assistance Available: PRN (friends nearby for PRN assist) Entry To Home: Stairs Number Of Stairs Into Home: 21 Number Of Stairs To Bed/Bath: 0 Tub/Shower Type: walk in shower Laundry: uses neighbors laundry Prior Functional Level: Within Functional Limits;History of Falls Prior Functional Level Comments: IND ADL/IADL, amb w/o device, drives, retired, one fall on ice recently Patient Report: Well this is as far as I've gotten (sitting up in bed) because I haven't been allowed CURRENT FUNCTIONAL STATUS: Most recent performance Current Activities of Daily Living Assist Level Additional Information Feeding Independent Grooming Set Up (seated) Bathing Upper Body Set Up Bathing Lower Body Contact Guard Assistance Dressing Upper Body Set Up Dressing Lower Body Contact Guard Assistance Toileting Supervision Instrumental Activities of Daily Living Assist Level Additional Information Meal/Beverage Prep Cleaning Laundry Medication Management with Strategies Functional Mobility Assist Level Additional Information Rolling Supervision (VC to teach log roll technique) Supine to Sit Contact Guard Assistance Sit to Supine Scooting Supervision Sit to Stand Contact Guard Assistance Stand to Sit Contact Guard Assistance Bed to Chair Contact Guard Assistance (VC for technique and safety) Stepping Wheeled Walker Toilet/Commode Shower Functional Mobility Contact Guard Assistance (Pt able to self correct mild LOB during ambulation) Wheeled Walker Blank palencia indicate activity not attempted Learning/Educational Needs: Discharge Plan;Equipment;Functional Activities/Mobility;Plan of Care;Precautions;Safety;Soraida f Care Goals for Plan of Care: Patient /Caregiver Goals: Walk;Go Home;Care For Self Goals: Patient will demonstrate progress with self-care, cognitive and/or coping needs identified to allow safe discharge to home with available support and/or physical assistance. Progress Toward Goals: Progressing as expected Rehab Potential: Excellent Patient will be discontinued from Occupational Therapy when no further skilled needs are identified in this setting. PLAN: OT Frequency: Discontinue therapy services Reasons Therapy Services Discontinued: Goals met Plan of Care developed with: Patient TREATMENT INTERVENTIONS: Therapy Diagnosis: Reduced mobility-other;Decreased activities of daily living (ADL);Muscle Weakness (generalized);Unsteadiness on feet;Abnormalities of gait and mobility-other Interventions Provided: Evaluation;Self Jail Management (40473) $ Evaluation-Low (85296) Billed Units: 1 unit Self Jail Management (03909) Treatment Minutes: 13 $ Self Jail Management (91650) Billed Units: 1 unit Training AND education provided in: Activity adaption / compensatory strategies, Adaptive equipment / DME, Assistive device use, Bed mobility, Benefits of in-hospital mobility, Coping skills, Discharge planning, Expected functional level, Functional mobility involving ADLs, IADLs / Home management, Lower extremity bathing, Lower extremity dressi (more content not included)... [facility] POST[facility] EVAL HNO ID: [id number] Author: Merary Francis MD Service: Anesthesiology Author Type: Anesthesiologist Type: Anesthesia Postprocedure Evaluation Filed: 03/20/2022 4:07 PM Note Text: POST ANESTHESIA EVALUATION NOTE : 1950 Procedure Summary Date: 03/20/22 Room / Location: [facility] OR09 / [facility] OR Anesthesia Start: 728 Anesthesia Stop: 1124 Procedures: LAMINECTOMY DECOMPRESSION FACETECTOMY AND FORAMINOTOMY (N/A Spine Lumbar) DECOMPRESSION LAMINECTOMY 1ST ADD'L LUMBAR SEGMENT (N/A Spine Lumbar) Diagnosis: Spinal stenosis of lumbar region with neurogenic claudication (Spinal stenosis of lumbar region with neurogenic claudication [M48.062]) Surgeons: Brock Portillo MD Responsible Provider: Merary Francis MD Anesthesia Type: general ASA Status: 2 Anesthesia Type: general Airway Type: ETT Last Vitals Vitals Value Taken Time BP 127/65 03/20/22 1217 Temp 36.5 ?C (97.7 ?F) 03/20/22 1217 HR SpO2 88 03/20/22 1121 Resp 16 03/20/22 121 SpO2 95 % 03/20/22 121 Post Anesthesia Patient Status Patient Evaluation: bedside. Anticipated Disposition: inpatient floor planned admission. Neurological Status: aware and responsive. Pulmonary Status: breathing comfortably on room air Airway Control: returned to baseline unsupported. Cardiovascular Status: stable. Pain Management: clinically adequate Postoperative Hydration: acceptable. Intraoperative Events: no significant anesthesia events Post Operative Nausea/Vomiting Status: no significant post operative nausea or vomiting Anesthetic Observations: Recommendation: continue current plan of care. Anesthesia Observations No Documentation SIGNATURE: Merary Francis MD PATIENT NAME: Miroslava Peralta DATE: March 20, 2022 TIME: 4:06 PM CSN: [id number] [facility] ANES PRE-OPon 03-20-2022 ANES PRE-OP HNO ID: [id number] Author: Merary Francis MD Service: Anesthesiology Author Type: Anesthesiologist Type: Anesthesia Preprocedure Evaluation Filed: 03/20/2022 7:27 AM Note Text: ANESTHESIOLOGY DAY OF SURGERY NOTE : 1950 Procedure Information Date/Time: 03/20/22729 Procedures: LAMINECTOMY DECOMPRESSION FACETECTOMY AND FORAMINOTOMY (N/A Spine Lumbar) DECOMPRESSION LAMINECTOMY 1ST ADD'L LUMBAR SEGMENT (N/A Spine Lumbar) - L3-5 laminectomy Location: OR09 / [facility] OR Surgeons: Brock Portillo MD Estimated body mass index is 31.8 kg/m? as calculated from the following: Height as of 4/4/22: 180.3 cm (5' 11 ). Weight as of 03/19/22: 103.4 kg (228 lb). Most recent hematocrit and potassium results: Hematocrit 44.3 02/23/2022 Potassium 3.9 02/23/2022 Relevant Problems CARDIO (+) Hypertension -RENAL (+) Chronic hepatitis C without hepatic coma (HCC) I - PHYSICAL EVALUATION AIRWAY Patient intubated: No. Tracheostomy tube not present Mallampati: I. TM distance: >3 FB. Neck ROM: full ROM without neurological symptoms. Mouth opening: adequate. Short neck: no. Thick neck: no DENTAL Dental findings: teeth intact. Additional exam findings: no II - ANESTHESIA PLAN ASA Score: 2 Anesthetic Plan: general Airway type: ETT The patient is not a current smoker. NPO Status: adequate Monitoring plan: standard ASA. Postoperative analgesic plan: parenteral or oral opioids and per surgical service. Informed Consent Anesthetic risks, benefits, alternatives, personnel and consent discussed: yes. Patient / Responsible [employer] Party agrees to proceed: yes Patient / Surrogate agrees to blood products: Yes Significant changes in the patient condition since the History and Physical, not otherwise documented in primary service progress note: no. Potential Anesthesia issues that may suggest increased risk of complications or contraindication to planned procedure: none. Vitals Value Taken Time BP 142/94 03/20/22 0652 Pulse 76 03/20/22 0652 Resp 18 03/20/22 0652 Temp 37 ?C (98.6 ?F) 03/20/22 0652 SpO2 92 % 03/20/22 0652 Facility-Administered Medications as of 03/20/2022 Medication Dose Route Frequency - lactated ringers iv infusion 75 mL/hr INTRAVENOUS CONTINUOUS - ceFAZolin iv piggyback 2 g in D5W (iso-osmotic) 100 mL (ANCEF) 2 g INTRAVENOUS ONCE - magnesium oxide 800 mg tab(s) (MAG-OX) 800 mg ORAL ONCE - acetaminophen 1,000 mg tab(s) (TYLENOL) 1,000 mg ORAL ONCE - promethazine 12.5 mg tab(s) (PHENERGAN) 12.5 mg ORAL NOW Outpatient Medications as of 03/20/2022 Medication Sig - lisinopril (ZESTRIL, PRINIVIL) 20 mg tablet Take 1 tablet by mouth once daily. (Patient not taking: Reported on 03/19/2022 ) - multivit,thx,calcium,iron,m ins (MULTIVITAMIN AND MINERAL ORAL) Take by mouth. (Patient not taking: Reported on 03/19/2022 ) - omega-3 fatty acids/vitamin e(FISH OIL 1,000 MG CAP) Take one(1) tablet daily by mouth (Patient not taking: ) I have interviewed and examined the patient. I have reviewed the medical record and/or the pre-anesthesia evaluation, pertinent labs, and test results. This contains updated information obtained within 48 hours of Surgery/Procedure. SIGNATURE: Merary Francis MD PATIENT NAME: Miroslava Monzonw DATE: March 20, 2022 TIME: 7:26 AM CSN: [id number] [facility] BRIEF OP NOTon 03-20-2022 BRIEF OP NOT HNO ID: [id number] Author: Brock Portillo MD Service: Neurosurgery Author Type: Physician Type: Brief Op Note Filed: 03/20/2022 11:06 AM Note Text: BRIEF OPERATIVE / PROCEDURE NOTE LOG ID: [id number] SURGERY/PROCEDURE DATE: 03/20/2022 INCISION/PROCEDURE START TIME: 7:59 AM INCISION CLOSE/PROCEDURE END TIME: 11:01 AM SURGEON(S)/PROCEDURALIST(S) AND WIDE AREA NETWORK ENGINEER(S): Surgeon(s) and Role: * Brock Portillo MD - Primary Physician Telephone Switchboard Operator: Tiffany Garsia PA-C SURGERY/PROCEDURE(S): L3-5 laminectomy ANESTHESIA: General FINDINGS: small left lateral duromtomy repaired primarily ESTIMATED BLOOD LOSS: 440 mls SPECIMENS: None COMPLICATIONS: None DRAINS: Subfascial drain PRE-OP/PRE-PROCEDURE DIAGNOSIS: lumbar stenosis with neurogenic claudication POST-OP/POST-PROCEDURE DIAGNOSIS: lumbar stenosis with neurogenic claudication SIGNATURE: Brock Portillo MD PATIENT NAME: Miroslava Monzonw DATE: March 20, 2022 TIME: 10:48 AM [facility] HNO ID: [id number] Author: Eleni Tinajero RN Service: ? Author Type: Registered Nurse Type: Care Mgt Initial Assessment Filed: 03/20/2022 4:03 PM Note Text: CARE MANAGEMENT PROGRESS NOTE SERVICE DATE: 03/20/2022 SERVICE TIME: 3:57 pm LOS: 0 days [place] of Choice Given: No Reason Not Given: No placements necessary Caregiver is ready, willing and able to meet the patient's needs as recommended by the inter-professional team:: Other: See Comment (TBD - will have PT / OT evals prior to DC) Does the patient have an acute stroke diagnosis, or has the patient had a stroke during this admission?: No Pre Hospital Mental Status Prior to this Illness what was the patient's Baseline Mental Status?: Alert AND Oriented Prior to this illness, has anyone described the patient having any of the following behaviors?: Not Applicable Relationship of the informant to the patient:: Self Needs Prior to Discharge: To Be Determined;OT/PT Evaluation Current Advance Directive: None SURGERY/PROCEDURE(S): L3-5 laminectomy CM met with patient at the bedside, states he lives alone, but has people to assist him at home. No DM in use. Will have PT / OT evals prior to DC. CM Department will continue to follow. SIGNATURE: Eleni Tinajero RN PATIENT NAME: Miroslava Peralta DATE: March 20, 2022 TIME: 3:48 PM PAGER/CONTACT #: [phone] [facility] CONSULTon 03-20-2022 CONSULT HNO ID: [id number] Author: Asad Tovar MD Service: General Internal Medicine Author Type: Physician Type: Consults Filed: 03/20/2022 6:08 PM Note Text: CONSULT NOTE - INTERNAL MEDICINE PATIENT NAME: Miroslava Peralta SERVICE DATE: 03/20/2022 SERVICE TIME: 6:05 PM ADMITTING PHYSICIAN: Brock Portillo MD CC: Post operative medical management; pt is s/p L3-5 laminectomy HPI: His pain is controlled well; he has been out of bed, tolerated activity well. He has been able to urinate after surgery, denies any changes from his baseline. He denies any recent fever or chills, skin infections or any upper respiratory infections. He denies any postoperative nausea or vomiting He is a reformed smoker and reformed from EtOH.. He is reformed from substance abuse also. 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 - SKIN BIOPSY HX Current Facility-Administered Medications Medication Dose Route Frequency - gabapentin 600 mg cap(s) (NEURONTIN) 600 mg ORAL TID - [START ON 03/21/2022] lisinopril 20 mg tab(s) (ZESTRIL, PRINIVIL) 20 mg ORAL DAILY - [START ON 03/21/2022] amLODIPine 10 mg tab(s) (NORVASC) 10 mg ORAL DAILY - traZODone 150 mg tab(s) (DESYREL) 150 mg ORAL AT BEDTIME - NaCl 0.9% iv flush bag 20 mL INTRAVENOUS PRN - sodium chloride 0.9 % (flush) 3-5 mL (BD POSIFLUSH) 3-5 mL INTRAVENOUS q 12 H - lactated ringers iv infusion 75 mL/hr INTRAVENOUS CONTINUOUS - ceFAZolin 3 g in D5W 100 mL (ANCEF) 3 g INTRAVENOUS q 8 HR - oxyCODONE-acetaminophen 5-325 mg 1-2 tablet (PERCOCET) 1-2 tablet ORAL q 6 H PRN - morphine 2 mg injection 2 mg INTRAVENOUS q 3 H PRN - dexAMETHasone sodium phosphate (PF) 4 mg injection (DECADRON) 4 mg INTRAVENOUS q 6 H - methocarbamol 750 mg tab(s) (ROBAXIN) 750 mg ORAL QID PRN Social History Tobacco Use - Smoking status: Former Smoker Packs/day: 2.00 Years: 23.00 Pack years: 46.00 Types: Cigarettes Quit date: 11/22/1992 Years since quittin.3 - Smokeless tobacco: Never Used Vaping Use - Vaping Use: Never used Substance Use Topics - Alcohol use: Not Currently Comment: quit in 1991. - Drug use: No Comment: Quit drugs in ~. ALLERGIES Allergen Reactions - Cardizem [Diltiazem* Other: See Comments panic attack - Diovan [Valsartan] GI Upset Caused nausea - Hyzaar [Losartan-Hy* Other: See Comments Mood change - Lopressor [Metoprol* Other: See Comments no energy, wiped pt out Family History Problem Relation Age of Onset - Cancer Mother breast cancer - Hypertension Mother - None Father father in train accident at yuni age - Hypertension Sister ROS: Patient denies any recent ENT or eye complaints, CP, palpitation, cough, wheeze, dizziness, dyspnea, abdominal pain, nausea, vomiting, urinary or bowel changes, rash or increased ankle swelling. He was treated for hep C, completed the treatment as directed Rest of the review of system is negative except as noted. OBJECTIVE PHYSICAL EXAM: Patient Vitals for the past 24 hrs: BP Temp Temp src Pulse Resp SpO2 Height Weight 03/20/22 1616 126/81 36.6 ?C (97.9 ?F) Oral 94 17 95 % ? ? 03/20/22 1231 ? 180.3 cm (5' 11 ) 102.1 kg (225 lb) 03/20/22 1217 127/65 36.5 ?C (97.7 ?F) Oral 84 16 95 % ? ? 03/20/22 1200 128/71 36.7 ?C (98.1 ?F) Temporal Art 88 18 96 % ? ? 03/20/22 1145 132/71 ? ? 89 18 93 % ? ? 03/20/22 1136 ? ? ? 89 ? 92 % ? ? 03/20/22 1130 131/77 ? ? 86 20 95 % ? ? 03/20/22 1121 136/83 37.1 ?C (98.8 ?F) Temporal Art 88 20 97 % ? ? 03/20/22 0652 142/94 37 ?C (98.6 ?F) Temporal Art 76 18 92 % ? ? Body mass index is 31.38 kg/m?. GENERAL: no distress. AANDOX3 SKIN: normal turgor HEENT: conjunctiva is pink, no icterus; m/m moist, no sinus tenderness NECK: no LN LUNGS: Lungs clear to auscultation, Fair air entry. CARDIAC: normal S1 and S2; no rubs or gallops ABDOMEN: Abdomen soft, non-tender. BS normal. EXTREMETIES: Bilateral normal ankle DF Problem List ACTIVE PROBLEM LIST Hypertension Sleeping Difficulty Anxiety Impaired Fasting Blood Sugar S/P Hip Replacement Shoulder Pain, Right Primary Localized Osteoarthrosis of Shoulder Region S/P Shoulder Joint Replacement Chronic Hepatitis C Without Hepatic Coma (Hcc) Chronic Bilateral Low Back Pain Without Sciatica Mgus (Monoclonal Gammopathy of Unk (more content not included)... [facility] NURSING PROGon 03-20-2022 NURSING PROG HNO ID: [id number] Author: Zan Rodriguez RN Service: Nursing Author Type: Registered Nurse Type: Nursing Progress Note Filed: 03/20/2022 12:33 PM Note Text: Nursing Progress Note Patient Name: Miroslava Peralta Patient Location: [address]/[id number] Daily Note: Received from PACU. Call wheeler within reach. Side rails x 2. Instructed on incentive spirometry. This note was completed by: Zan Rodriguez [facility] NURSING PROG HNO ID: [id number] Author: Aracelis Shirley RN Service: Nursing Author Type: Registered Nurse Type: Nursing Progress Note Filed: 03/20/2022 11:14 AM Note Text: Patient was catheterized by AMANDO Mccullough in OR suite post procedure for 700ml Clear, kathleen urine. [facility] OPERATIVE NOon 03-20-2022 OPERATIVE NO HNO ID: [id number] Author: Brock Portillo MD Service: Neurosurgery Author Type: Physician Type: Operative Report Filed: 03/20/2022 11:06 AM Note Text: OPERATIVE/PROCEDURE REPORT LOG ID: [id number] SURGERY/PROCEDURE DATE: 03/20/2022 INCISION/PROCEDURE START TIME: 7:59 AM INCISION CLOSE/PROCEDURE END TIME: 11:01 AM SURGEON(S)/PROCEDURALIST(S) AND WIDE AREA NETWORK ENGINEER(S): Surgeon(s) and Role: * Brock Portillo MD - Primary Physician Telephone Switchboard Operator: Tiffany Garsia PA-C SURGERY/PROCEDURE(S): L3-5 laminectomy ANESTHESIA: General INDICATION: 71 yo M who presents to the clinic with symptoms of low back with bilateral leg pain. MRI lumbar spine showed severe stenosis at L3/4, and L4/5. Decision was made for L3-5 laminectomy SURGERY/PROCEDURE DETAILS: Patient was brought to the operating room. A huddle was performed with anesthesia team and nursing staff and surgical team all agreed to proceed. Patient was positioned prone on the Bin table. IV antibiotics were given. The area was prepped and draped in usual fashion. A #10 blade scalpel was used to make an incision approximately 5 cm in length in the midline lumbar region. Monopolar cautery and blunt dissection were used to dissect down to the fascial plain and achieved hemostasis. Fascia was cleared and then incised down to the spinous process of L3-5. Using bony landmarks, the soft tissues and muscles were reflected bilaterally. Once adequate visualization of the L3-5 was achieved, a self-retaining retractor was inserted. An instrument was inserted into the wound to identify the L3 level utilizing cross-table intra-operative x-ray. After verification of the level, the high speed side-cutting air drill was used to perform laminectomy at bottom of L3, L4 and top of L5. Once the lamina had been removed, a curette was used to remove the ligamentum flavum and expose the dura. Once the dura was visualized, a Kerrison rongeur was then used to remove the remainder of the ligamentum flavum and soft tissue. Adequate hemostasis was achieved with bipolar cautery. The nerve root was retracted medially with a nerve root retractor. The pituitary grabber was used along with the blunt tip nerve hook to free a disk fragment impinging on the nerve root. The pituitary grabber removed the disk fragment successfully. Additional disk fragments were identified and removed with the pituitary grabber. The nerve was well decompressed. Durotomy was encountered at right L3/4 area which was repaired primarily followed with muscle patch and adherus. Incision was closed in 3 layers. 1 Vicryl for fascia, 2-0 Vicryl for subcutaneous layer, dimitry for skin. Dressing was applied. Patient was gently emerged from anesthesia and was transferred to PACU in stable condition. PRE-OP/PRE-PROCEDURE DIAGNOSIS: Lumbar stenosis with neurogenic claudication POST-OP/POST-PROCEDURE DIAGNOSIS: Lumbar stenosis with neurogenic claudication ESTIMATED BLOOD LOSS: 440 mls SPECIMENS: None IMPLANTABLE DEVICES: None DRAINS: Subfascial drain COMPLICATIONS: None PARTICIPATION IN SURGERY/PROCEDURE: Brock Portillo and Tiffany Garsia performed the opening decompression and closure together SIGNATURE: Brock Portillo MD PATIENT NAME: Miroslava Peralta DATE: March 20, 2022 TIME: 10:53 AM [facility] XR LUMBAR SPECIFY 1Von 03-20 XR LUMBAR SPECIFY 1V * * *Final Report* * * DATE OF EXAM: Mar 20 2022 10:41AM LEVI 5234 - XR LUMBAR SPECIFY 1V / PROCEDURE REASON: Spinal stenosis of lumbar region with neurogenic claudication * * * * Physician Interpretation * * * * XR LUMBAR SPECIFY 1V HISTORY: Spinal stenosis of lumbar region with neurogenic claudication. VIEWS: Lateral lumbar at 1035 hours. COMPARISON: Same day 0819 hours. IMPRESSION: Intraoperative film #4 indicates surgical instruments posterior to the L3-4 and L4-5 interspaces for localizing purposes. Counting reference: Lumbosacral junction. For the purposes of this report, L4-5 is considered the level of the iliac crest and assume there are 5 lumbar-type vertebrae. Anatomic variant: None. Design Editor: AMANDA Transcribe Date/Time: Mar 20 2022 10:51A Dictated by : Rambo HOLLAND MD This examination was interpreted and the report reviewed and electronically signed by: Rambo HOLLAND MD on Mar 20 2022 10:51AM EST [id number] [facility] XR LUMBAR SPECIFY 1V * * *Final Report* * * DATE OF EXAM: Mar 20 2022 8:18AM LEVI 5234 - XR LUMBAR SPECIFY 1V / PROCEDURE REASON: Spinal stenosis of lumbar region with neurogenic claudication * * * * Physician Interpretation * * * * TECHNIQUE: Lateral intraoperative image of the lumbar spine (2 images) COUNTING REFERENCE: Lumbosacral junction. L4/5 is presumed to be the level of the iliac crests. There are 5 lumbar type vertebral bodies. COMPARISON: Same day 0752 hours RESULT: A localizing surgical instrument is noted, upper instrument posteriorly at the L3 pars interarticularis. Image #3 annotated with vertebral body levels and confirmed with the responsible surgeon at the time of interpretation. IMPRESSION: OPERATIVE ASSESSMENT COMMUNICATION: Localization level(s) confirmed with: Dr. Jase Portillo on 03/20/2022 at 0827 hours, via phone and Microsoft Teams during the surgical procedure. Design Editor: [facility] Transcribe Date/Time: Mar 20 2022 8:27A Dictated by : Rambo HOLLAND MD This examination was interpreted and the report reviewed and electronically signed by: Rambo HOLLAND MD on Mar 20 2022 8:29AM EST [id number] [facility] XR LUMBAR SPECIFY 1V * * *Final Report* * * DATE OF EXAM: Mar 20 2022 7:56AM LEVI 5234 - XR LUMBAR SPECIFY 1V / PROCEDURE REASON: Spinal stenosis of lumbar region with neurogenic claudication * * * * Physician Interpretation * * * * EXAM: XR LUMBAR SPECIFY 1V HISTORY: Spinal stenosis of lumbar region with neurogenic claudication. VIEWS: Lateral lumbar at 0752 hours. COMPARISON: 12/13/2020. IMPRESSION: Intraoperative film #1 indicates posterior needle projecting over the L3 spinous process for localization purposes. Counting reference: Lumbosacral junction. For the purposes of this report, L4-5 is considered the level of the iliac crest and assume there are 5 lumbar-type vertebrae. Anatomic variant: None. Design Editor: [facility] Transcribe Date/Time: Mar 20 2022 8:14A Dictated by : Rambo HOLLAND MD This examination was interpreted and the report reviewed and electronically signed by: Rambo HOLLAND MD on Mar 20 2022 8:14AM EST [id number] [facility] XR VERIFY LEVEL S-[id number]-OTim 03-20-2022 XR VERIFY LEVEL L-SPINE-NB * * *Final Report* * * DATE OF EXAM: Mar 20 2022 8:23AM LEVI 5642 - XR VERIFY LEVEL L-SPINE-NB / PROCEDURE REASON: Spinal stenosis of lumbar region with neurogenic claudication * * * * Physician Interpretation * * * * TECHNIQUE: Lateral intraoperative image of the lumbar spine (2 images) COUNTING REFERENCE: Lumbosacral junction. L4/5 is presumed to be the level of the iliac crests. There are 5 lumbar type vertebral bodies. COMPARISON: Same day 0752 hours RESULT: A localizing surgical instrument is noted, upper instrument posteriorly at the L3 pars interarticularis. Image #3 annotated with vertebral body levels and confirmed with the responsible surgeon at the time of interpretation. IMPRESSION: OPERATIVE ASSESSMENT COMMUNICATION: Localization level(s) confirmed with: Dr. Jase Portillo on 03/20/2022 at 0827 hours, via phone and Microsoft Teams during the surgical procedure. Design Editor: [facility] Transcribe Date/Time: Mar 20 2022 8:27A Dictated by : Rambo HOLLAND MD This examination was interpreted and the report reviewed and electronically signed by: Rambo HOLLAND MD on Mar 20 2022 8:29AM EST [id number] [facility] CBC W Auto Differential pane l (Bld)on 02-23-2022 Abs Immature Gran <0.03 <0.10 k/uL [facility] Basophils (Bld) [#/Vol] 0.07 10*3/uL <0.11 k/uL [facility] Basophils/100 WBC (Bld) 1.4 % [facility] Differential cell count method Nom (Bld) Auto [facility] Eosinophils (Bld) [#/Vol] 0.17 10*3/uL <0.46 k/uL [facility] Eosinophils/100 WBC (Bld) 3.4 % [facility] Erythrocyte distribution width (RBC) [Ratio] 12.5 % 11.5 - 15.0 % [facility] Hematocrit (Bld) [Volume fraction] 44.3 % 39.0 - 51.0 % [facility] Hemoglobin (Bld) [Mass/Vol] 15.5 g/dL 13.0 - 17.0 g/dL [facility] Immature Gran % 0.4 % [facility] Lymphocytes (Bld) [#/Vol] 0.99 10*3/uL Low 1.00 - 4.00 k/uL [facility] Lymphocytes/100 WBC (Bld) 20.1 % [facility] MCH (RBC) [Entitic mass] 32.9 pg 26.0 - 34.0 pg [facility] MCHC (RBC) [Mass/Vol] 35.0 g/dL 30.5 - 36.0 g/dL [facility] MCV (RBC) [Entitic vol] 94.1 fL 80.0 - 100.0 fL [facility] Monocytes (Bld) [#/Vol] 0.69 10*3/uL <0.87 k/uL [facility] Monocytes/100 WBC (Bld) 14.0 % [facility] Neutrophils (Bld) [#/Vol] 2.99 10*3/uL 1.45 - 7.50 k/uL [facility] Neutrophils/100 WBC (Bld) 60.7 % [facility] Nucleated RBC (Bld) [#/Vol] 10*3/uL <0.01 k/uL [facility] Nucleated RBC/100 WBC (Bld) [Ratio] 0.0 /100 WBC [facility] Platelet mean volume (Bld) [Entitic vol] 9.4 fL 9.0 - 12.7 fL [facility] Platelets (Bld) [#/Vol] 208 10*3/uL 150 - 400 k/uL [facility] RBC (Bld) [#/Vol] 4.71 10*6/uL 4.20 - 6.0 0 m/uL [facility] WBC (Bld) [#/Vol] 4.93 10*3/uL 3.70 - 11. 00 k/uL [facility] Comprehensive metabolic 2000 panelon 02-23-2022 Albumin [Mass/Vol] 4.4 g/dL 3.9 - 4.9 g/dL [facility] ALP [Catalytic activity/Vol] 65 U/L 38 - 113 U/L [facility] ALT [Catalytic activity/Vol] 14 U/L 10 - 54 U/L [facility] Anion gap [Moles/Vol] 8 mmol/L Low 9 - 18 mmol/L [facility] AST [Catalytic activity/Vol] 22 U/L 14 - 40 U/L [facility] Bilirubin [Mass/Vol] 0.4 mg/dL 0.2 - 1.3 mg/dL [facility] Calcium [Mass/Vol] 9.4 mg/dL 8.5 - 10. 2 mg/dL [facility] Chloride [Moles/Vol] 100 mmol/L 97 - 105 mmol/L [facility] CO2 [Moles/Vol] 26 mmol/L 22 - 30 mmol/L [facility] Creatinine [Mass/Vol] 1.11 mg/dL 0.73 - 1.22 mg/dL [facility] Estimated Glomerular Filtration Rate 71 mL/min/1.73m >=60 mL/min/1.73m [facility] Glucose [Mass/Vol] 101 mg/dL High 74 - 99 mg/dL [facility] Potassium [Moles/Vol] 3.9 mmol/L 3.7 - 5.1 mmol/L [facility] Protein [Mass/Vol] 6.9 g/dL 6.3 - 8.0 g/dL [facility] Sodium [Moles/Vol] 134 mmol/L Low 136 - 144 mmol/L [facility] Urea nitrogen [Mass/Vol] 12 mg/dL 9 - 24 mg/dL [facility] CNPNon 01-20-2022 CNPN Telephone (NEADFV) MIROSLAVA PERALTA ([id number]) 1950 M [facility] Date Time Provider Department 01/20/22 BROCK PORTILLO During your visit today, we recorded the following information about you: Vanessa Burger [facility] [place] 01/20/2022 11:15 AM Signed Patient calling states he is going to be having surgery in February but not recollect where his surgery will be? He is asking for a call back as he has other questions, he can be reached at [phone] Estelle Castaneda RN 01/20/2022 11:56 AM Signed Called patient with no answer. Left message on identified voicemail that surgery will be at [facility] and to call back if he has further questions. JEFE Nguyen 01/20/2022 12:01 PM Signed Patient called back, informed him of message below. Allergies As of Date: 01/20/2022 Noted Allergy Reaction CARDIZEM (DILTIAZEM HCL) 03/04/2011 14 - Other: See Comments Comments: panic attack DIOVAN (VALSARTAN) 09/29/2010 8 - GI Upset Comments: Caused nausea HYZAAR (LOSARTAN-HYDROCHLOROTHIAZ* 03/04/2011 14 - Other: See Comments Comments: Mood change LOPRESSOR (METOPROLOL TARTRATE) 03/22/2018 14 - Other: See Comments Comments: no energy, wiped pt out Date Reviewed: 12/29/2021 Reviewed by: Yudy Rosa MA - Fully Assessed Reason for Visit: Pt has questions re: surgery [Other] Prescriptions as of 01/20/2022 - mupirocin (BACTROBAN) 2 % ointment Apply 1/2 ointment with a cotton swab in each nostril 2x daily for five days preop - lisinopril (ZESTRIL, PRINIVIL) 20 mg tablet Take 1 tablet by mouth once daily. - gabapentin (NEURONTIN) 300 mg capsule Take 2 capsules by mouth three times daily for 30 days. Take 1 capsule three times daily for two weeks then increase to 2 capsules three times daily. - amLODIPine (NORVASC) 10 mg tablet Take 1 tablet by mouth once daily. - naproxen (NAPROSYN) 500 mg tablet TAKE 1 TABLET TWICE DAILY NEEDED for pain and inflammation with food - traZODone (DESYREL) 150 mg tablet Take 1 tablet by mouth daily at bedtime. - multivit,thx,calcium,iron,m ins (MULTIVITAMIN AND MINERAL ORAL) Take by mouth. - omega-3 fatty acids/vitamin e(FISH OIL 1,000 MG CAP) Take one(1) tablet daily by mouth Problem List As Of Date 01/20/2022 Noted Resolved Diarrhea [R19.7] 07/31/2010 06/16/2019 Hypertension [I10] 07/31/2010 Sleeping difficulty [G47.9] 09/29/2010 Anxiety [F41.9] 09/29/2010 Impaired fasting blood sugar [R73.01] 10/02/2010 S/P hip replacement [Z96.649] 08/07/2014 Shoulder pain, right [M25.511] 09/04/2014 Primary localized osteoarthrosis of shoulder re*12/12/2014 S/P shoulder joint replacement [Z96.619] 02/21/2015 Chronic hepatitis C without hepatic coma (HCC) *01/05/2019 Chronic bilateral low back pain without sciatic*12/18/2020 MGUS (monoclonal gammopathy of unknown signific*03/15/2021 Numbness and tingling of foot [R20.0, R20.2] 07/20/2021 Encounter Status:Closed by ESTELLE CASTANEDA on 01/20/22 [facility] 12-30-2021 CNPN Telephone (NSFRVW) MIROSLAVA PERALTA ([id number]) 1950 M [facility]* Date Time Provider Department 12/30/21 BROCK PORTILLO NSFRVW During your visit today, we recorded the following information about you: Estelle Castaneda RN 12/30/2021 3:18 PM Signed Called patient with no answer. Left message to return call. Wanted to discuss scheduling surgery. Doreen Casas 01/02/2022 9:10 AM Signed Patient returned nurse's call. Estelle Castaneda RN 01/05/2022 10:34 AM Signed Called patient with no answer. Left message to return call. Vanessa Burger Ilene 01/06/2022 9:13 AM Signed Patient called back regarding scheduling his surgery, he can be reached at [phone] Estelle Castaneda RN 01/07/2022 10:09 AM Signed Neuro SPINE CARE COORDINATION PRE-OP VISIT ? Spoke with patient on the phone for pre op education. Given both written and verbal instructions re : Skin prep, wound care, pain management and post op restrictions. ? Mailed to patient: [facility] Surgery Guide, skin prep supplies, Spine Surgery Pre/post op education packet. Yes. ? Reviewed with patient to report to the registration desk for surgery? Yes. ? Reviewed with the patient that a surgery outside industrial sales representative will call the working day prior to surgery to confirm surgery time? Yes. ? Patient aware eat nothing after midnight prior to surgery, clear liquids only until 2 hours before report time. Yes. ? Patient aware surgery will be OUTPATIENT: extended recovery. ? Discussed care post discharge : Self care. ? Does patient have transportation to and from surgery ? Yes. ? Falls Education provided ? Yes ? Nasal swab obtained ? No. Patient instructed in mupirocin treatment : Prescription will be sent to preferred pharmacy. ? Questions answered and patient voice(s) understanding via teach back. ? Additional Comments : Post -op Support. Estelle Castaneda RN ? Patient accepts surgery date of 03/20/[address] Portillo. Planned procedure is L3-5 laminectomy. PAT will be scheduled by office. ? [employer] : N/A ? Medications reviewed : Yes. Meds to be stopped prior to surgery : NSAIDS. ? Additional pre op clearances needed : none. ? Any implanted devices : No. ? Transplant History No. ? Patient will get optimization lab work : To be completed at [facility]. ? Questions answered. Patient verbalizes understanding via teach back. ? Additional comments : Informed to call with any questions or concerns. Estelle Castaneda RN Allergies As of Date: 12/30/2021 Noted Allergy Reaction CARDIZEM (DILTIAZEM HCL) 03/04/2011 14 - Other: See Comments Comments: panic attack DIOVAN (VALSARTAN) 09/29/2010 8 - GI Upset Comments: Caused nausea HYZAAR (LOSARTAN-HYDROCHLOROTHIAZ* 03/04/2011 14 - Other: See Comments Comments: Mood change LOPRESSOR (METOPROLOL TARTRATE) 03/22/2018 14 - Other: See Comments Comments: no energy, wiped pt out Date Reviewed: 12/29/2021 Reviewed by: Yudy Rosa MA - Fully Assessed Reason for Visit: Schedule Surgery [1330] Prescriptions as of 01/07/2022 - lisinopril (ZESTRIL, PRINIVIL) 20 mg tablet Take 1 tablet by mouth once daily. - gabapentin (NEURONTIN) 300 mg capsule Take 2 capsules by mouth three times daily for 30 days. Take 1 capsule three times daily for two weeks then increase to 2 capsules three times daily. - amLODIPine (NORVASC) 10 mg tablet Take 1 tablet by mouth once daily. - naproxen (NAPROSYN) 500 mg tablet TAKE 1 TABLET TWICE DAILY NEEDED for pain and inflammation with food - traZODone (DESYREL) 150 mg tablet Take 1 tablet by mouth daily at bedtime. - multivit,thx,calcium,iron,m ins (MULTIVITAMIN AND MINERAL ORAL) Take by mouth. - omega-3 fatty acids/vitamin e(FISH OIL 1,000 MG CAP) Take one(1) tablet daily by mouth Problem List As Of Date 12/30/2021 Noted Resolved Diarrhea [R19.7] 07/31/2010 06/16/2019 Hypertension [I10] 07/31/2010 Sleeping difficulty [G47.9] 09/29/2010 Anxiety [F41.9] 09/29/2010 Impaired fasting blood sugar [R73.01] 10/02/2010 S/P hip replacement [Z96.649] 08/07/2014 Shoulder pain, right [M25.511] 09/04/2014 Primary localized osteoarthrosis of shoulder re*12/12/2014 S/P shoulder joint replacement [Z96.619] 02/21/2015 Chronic hepatitis C without hepatic coma (HCC) *01/05/2019 Chronic bilateral low back pain without sciatic*12/18/2020 MGUS (monoclonal gammopathy of unknown signific*03/15/2021 Numbness and tingling of foot [R20.0, R20.2] 07/20/2021 Encounter Status:Closed by ESTELLE CASTANEDA on 01/07/22 [facility] HISTORY PHYSICALon HISTORY PHYSICAL HNO ID: [id number] Author: Sanjay Young MD Service: Pain Management Author Type: Physician Type: HANDP Filed: 12/23/2021 10:34 AM Note Text: HISTORY AND PHYSICAL EXAMINATION PATIENT NAME: Miroslava Peralta DATE of SERVICE: 12/23/2021 PAST ANESTHESIA HISTORY: No history of adverse event PAST MEDICAL HISTORY Diagnosis Date - Drug addiction (HCC) 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 - SKIN BIOPSY HX Prior to Admission medications as of 12/23/21 1008 Medication Sig Last Dose Taking gabapentin (NEURONTIN) 300 mg capsule Take 2 capsules by mouth three times daily for 30 days. Take 1 capsule three times daily for two weeks then increase to 2 capsules three times daily. 12/19/2021 Yes amLODIPine (NORVASC) 10 mg tablet Take 1 tablet by mouth once daily. 12/21/2021 at 2000 Yes naproxen (NAPROSYN) 500 mg tablet TAKE 1 TABLET TWICE DAILY NEEDED for pain and inflammation with food 12/17/2021 Yes traZODone (DESYREL) 150 mg tablet Take 1 tablet by mouth daily at bedtime. 12/22/2021 at 2100 Yes multivit,thx,calcium,iron,m ins (MULTIVITAMIN AND MINERAL ORAL) Take by mouth. 12/17/2021 Yes omega-3 fatty acids/vitamin e(FISH OIL 1,000 MG CAP) Take one(1) tablet daily by mouth 12/09/2021 Yes ALLERGIES Allergen Reactions - Cardizem [Diltiazem* Other: See Comments panic attack - Diovan [Valsartan] GI Upset Caused nausea - Hyzaar [Losartan-Hy* Other: See Comments Mood change - Lopressor [Metoprol* Other: See Comments no energy, wiped pt out Objective Subjective HPI: Miroslava Peralta is here for the pain mangement procedure. The patient presents with persistent pain complaints. Miroslava Cordell Peralta denies any interval changes or new pain complaints or focal neurologic deficits. 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 - SKIN BIOPSY HX Social History Tobacco Use - Smoking status: Former Smoker Packs/day: 2.00 Years: 23.00 Pack years: 46.00 Types: Cigarettes Quit date: 11/22/1992 Years since quittin.1 - Smokeless tobacco: Never Used Substance Use Topics - Alcohol use: Not Currently Comment: quit in 1991. - Drug use: No Comment: Quit drugs in ~. FAMILY HISTORY Problem Relation Age of Onset - Cancer Mother breast cancer - Hypertension Mother - None Father father in train accident at [place]uni age - Hypertension Sister ALLERGIES Allergen Reactions - Cardizem [Diltiazem* Other: See Comments panic attack - Diovan [Valsartan] GI Upset Caused nausea - Hyzaar [Losartan-Hy* Other: See Comments Mood change - Lopressor [Metoprol* Other: See Comments no energy, wiped pt out Current Facility-Administered Medications Medication Dose Route Frequency - NaCl 0.9% iv infusion 30 mL/hr INTRAVENOUS CONTINUOUS PHYSICAL EXAM: The remainder of the physical exam is noncontributory. Performed in conjunction with observation. The patient is alert and oriented x3. The patient is in no acute distress. Neck: Supple. The range of motion is intact. AIRWAY: Airway Visualization of Uvula: Yes Mouth opening greater than 2 fingerbreadths: Yes Neck Full Range of Motion: Yes LUNGS: Lungs clear to auscultation CARDIAC: Regular rhythm,Regular rate Extremities: no reported edema or erythema. Examination indicates no changes Assessment/Plan ASA Class: ASA Class:: Patient with mild systemic disease Active Problems: * No active hospital problems. * Resolved Problems: * No resolved hospital problems. * Medication and Non-Pharmacologic VTE Prophylaxis/Anticoagulants VTE Prophylaxis: N/A for outpatient interventional pain procedure. Provisional Diagnosis/Treatment Plan: SEDATION GOAL: Moderate Impression: Lumbar canal stenosis Plan: The informed consent has been obtai (more content not included)... [facility] OPERATIVE NOon 12-23-2021 OPERATIVE NO HNO ID: [id number] Author: Sanjay Young MD Service: Pain Management Author Type: Physician Type: Operative Report Filed: 12/23/2021 10:52 AM Note Text: PATIENT NAME: Miroslava Peralta SERVICE DATE: 12/23/2021 PROCEDURE NOTE PREOPERATIVE DIAGNOSIS(ES) Lumbar radiculopathy Lumbar disc displacement Lumbar canal stenosis without neurogenic claudication Lumbar DDD POSTOPERATIVE DIAGNOSIS(ES): Same PROCEDURE Bilateral L4-5 lumbar transforaminal epidural steroid injection under fluoroscopy. ANESTHESIA: Conscious sedation with Versed 3mg IV INDICATIONS: The patient presents for lumbar transforaminal epidural steroid injection. Since the last assessment, the patient denies any new pain complaints and denies any focal neurological deficits. The risks and benefits of the procedure were discussed. Specifically, the risks of bleeding, infection, inadvertent dural puncture, spinal heaches, vasovagal reaction, epidural hematoma, partial or permanent nerve injury were covered. The potential side effects of medications used in procedures including increase in lumbar pain, headaches, facial redness or warmth (flushing), anxiety or mood swings, sleeplessness, fever, high blood sugar, brief reduction in immunity were discussed. The patient expressed understanding of potential risks and wishes to proceed with the procedure. PROCEDURE NOTE: The patient was brought to the operating room. The patient was placed in the prone position with pressure points protected. Continuous hemodynamic monitoring was initiated including blood pressure, EKG, and pulse oximetry. Supplemental oxygen per nasal canula was started. The intravenous medication was administered incrementally to provide conscious sedation and to allow the patient to remain comfortable and conversant throughout the procedure. The lower back was prepped in sterile fashion. Upon AP projection under fluoroscopy, L4-5 level was identified. The fluoroscopy was rotated in oblique projection to identify the neuroforamen. Entry point was marked and anesthetized with 2ml of 0.25% Marcaine. This was followed by insertion of a 5 inch spinal needle, which was inserted and advanced towards the 12 o' clock of the L4-5 neuroforamen. Once the Needle tip contacted the inferior lateral aspect of the pedicle, aspiration was performed which was negative for blood or CSF. This was followed by injection of 0.5 ml of Omnipaque 300, which revealed a spread through the neuroforamen into the anterior epidural space. There was no evidence of intravascular or intrathecal flow. This was then repeated on the left side using the same technique. No difficulty was encountered. This was then followed by a total injection of 4 mL of 0.25% Marcaine with 40 mg of Depomedrol in divided and equal doses to bilateral sites. The patient tolerated the procedure well. The needles were removed intact. Dry dressing was placed over the injection site. The patient was taken to the recovery room in stable condition. EBL: nil Start time: 10:38 AM End time: 10:49 AM I was present the entire time and personally performed the procedure. SIGNATURE: Sanjay Young MD DATE: December 23, 2021 TIME: 10:52 AM [facility] XR FLUOROSCOPYon 12-23-2021 XR FLUOROSCOPY * * *Final Report* * * DATE OF EXAM: Dec 23 2021 10:52AM MDR [id number] - XR FLUOROSCOPY / PROCEDURE REASON: PAIN * * * * Physician Interpretation * * * * TECHNIQUE: XR FLUOROSCOPY COMPARISON: No prior study for comparison. TECHNIQUE: Limited fluoroscopic imaging of the lumbar spine for pain injections. CLINICAL INDICATION: PAIN Fluoroscopic Radiation Summary: Plane A, Air Kerma: 9.9 mGy Dose Area Product (DAP): 1241.3 mGy*cm^2 Fluoro time: 0:21 min:sec IMAGE NUMBER: 11 RESULT: [place] directed at the bilateral lower lumbar spine for perineural epidural injections. IMPRESSION: 1. As above. Design Editor: [employer] Transcribe Date/Time: Dec 23 2021 10:57A Dictated by : GOPAL BLAKELY MD This examination was interpreted and the report reviewed and electronically signed by: GOPAL BLAKELY MD on Dec 23 2021 10:58AM EST [id number] [facility] XR Hand - bilateral PA and L ateral and Obliqueon 09-30-2021 IMPRESSION: Nonerosive degenerative changes of the bilateral and hands and wrists. Design Editor: [employer] Transcribe Date/Time: Sep 30 2021 4:05P Dictated by : JAYJAY JOHNS MD This examination was interpreted and the report reviewed and electronically signed by: JAYJAY JOHNS MD on Sep 30 2021 4:06PM EST DIVISION OF RADIOLOGY * * *Final Report* * * DATE OF EXAM: Sep 30 2021 3:19PM STX 5556 - XR HAND 3V PA/LAT/OBL CHI / PROCEDURE REASON: Pain in joint, multiple sites * * * * Physician Interpretation * * * * HAND RADIOGRAPHS - BILATERAL HISTORY: Pain in joint, multiple sites TECHNOLOGIST PROVIDED HISTORY (if applicable): BILATERAL HAND JOINT PAIN, NO KNOWN INJURY TECHNIQUE: XR HAND 3V PA/LAT/OBL CHI COMPARISON: None available RESULT: There is generalized osteopenia. There is no evidence for articular erosion or periarticular osteopenia in the right hand. No focal bony abnormality is identified. There is mild narrowing of the interphalangeal joint spaces. There is no soft tissue swelling. There is no evidence for articular erosion or periarticular osteopenia in the left hand. No focal bony abnormality is identified. There is mild narrowing of the interphalangeal joint spaces. There is no soft tissue swelling. Bilateral first carpal metacarpal joint space narrowing greater on the left side. DIVISION OF RADIOLOGY Provider, Dawit Renee [facility] - 09/30/2021 * * *Final Report* * * DATE OF EXAM: Sep 30 2021 3:19PM STX [id number] - XR HAND 3V PA/LAT/OBL CHI / PROCEDURE REASON: Pain in joint, multiple sites * * * * Physician Interpretation * * * * HAND RADIOGRAPHS - BILATERAL HISTORY: Pain in joint, multiple sites TECHNOLOGIST PROVIDED HISTORY (if applicable): BILATERAL HAND JOINT PAIN, NO KNOWN INJURY TECHNIQUE: XR HAND 3V PA/LAT/OBL CHI COMPARISON: None available RESULT: There is generalized osteopenia. There is no evidence for articular erosion or periarticular osteopenia in the right hand. No focal bony abnormality is identified. There is mild narrowing of the interphalangeal joint spaces. There is no soft tissue swelling. There is no evidence for articular erosion or periarticular osteopenia in the left hand. No focal bony abnormality is identified. There is mild narrowing of the interphalangeal joint spaces. There is no soft tissue swelling. Bilateral first carpal metacarpal joint space narrowing greater on the left side. IMPRESSION IMPRESSION: Nonerosive degenerative changes of the bilateral and hands and wrists. Design Editor: PSCB Transcribe Date/Time: Sep 30 2021 4:05P Dictated by : JAYJAY JOHNS MD This examination was interpreted and the report reviewed and electronically signed by: JAYJAY JOHNS MD on Sep 30 2021 4:06PM EST [facility] Radiology Study observation (narrative) [facility] XR Hand - bilateral PA and L ateral and ObliqueOrdered By: [facility]cf Provider on 09-30-2021 [facility] No Panel Informationon 07-04 Radiology Study observation (narrative) [facility] XR HIP BILAT 5V PEL/AP/LAT E ACH HIPon 07-04-2021 IMPRESSION: Postsurgical change. No complication. Osteoarthrosis of the left hip. Design Editor: AMANDA Transcribe Date/Time: Jul 04 2021 3:00P Dictated by : GOPAL BLAKELY MD This examination was interpreted and the report reviewed and electronically signed by: GOPAL BLAKELY MD on Jul 04 2021 3:05PM [facility] DIVISION OF RADIOLOGY * * *Final Report* * * DATE OF EXAM: Jul 04 2021 2:20PM WOX 5353 - XR HIP CHI 5V PEL+ AP/LAT EA HIP / PROCEDURE REASON: Hip pain * * * * Physician Interpretation * * * * Pelvis and bilateral hip radiographs HISTORY: 70 years old Clinical information: Hip pain Chronic diffuse bilateral hip pain. Left hip increasing in pain over time. Right CARMELINA. TECHNIQUE: Images: XR HIP CHI 5V PEL+ AP/LAT EA HIP Comparison: None. RESULT: Findings: Right total hip arthroplasty. Alignment appears intact. No perihardware osteolysis. No hardware fracture. Narrowing of superior left hip joint space. Probable [id number] the left femoral head and acetabulum. Osteophyte formation involving the left femoral head and acetabulum. No fracture or dislocation. Pubic symphysis and SI joints are intact. DIVISION OF RADIOLOGY Provider, [facility] - 07/04/2021 * * *Final Report* * * DATE OF EXAM: Jul 04 2021 2:20PM WOX 5353 - XR HIP CHI 5V PEL+ AP/LAT EA HIP / PROCEDURE REASON: Hip pain * * * * Physician Interpretation * * * * Pelvis and bilateral hip radiographs HISTORY: 70 years old Clinical information: Hip pain Chronic diffuse bilateral hip pain. Left hip increasing in pain over time. Right CARMELINA. TECHNIQUE: Images: XR HIP CHI 5V PEL+ AP/LAT EA HIP Comparison: None. RESULT: Findings: Right total hip arthroplasty. Alignment appears intact. No perihardware osteolysis. No hardware fracture. Narrowing of superior left hip joint space. Probable nhag-[id number]-vdul the left femoral head and acetabulum. Osteophyte formation involving the left femoral head and acetabulum. No fracture or dislocation. Pubic symphysis and SI joints are intact. IMPRESSION IMPRESSION: Postsurgical change. No complication. Osteoarthrosis of the left hip. Design Editor: AMANDA Transcribe Date/Time: Jul 04 2021 3:00P Dictated by : GOPAL BLAKELY MD This examination was interpreted and the report reviewed and electronically signed by: GOPAL BLAKELY MD on Jul 04 2021 3:05PM EST [facility] XR HIP BILAT 5V PEL/AP/LAT E ACH HIPOrdered By: [facility]cf Provider on 07-04-2021 [facility] XR Knee - bilateral 4 Viewso n 07-04-2021 IMPRESSION: Osteoarthrosis of the knees and left hip Left-sided knee joint effusion.. Postsurgical change of the right hip. No complication. Design Editor: PSC Transcribe Date/Time: Jul 04 2021 3:05P Dictated by : GOPAL BLAKELY MD This examination was interpreted and the report reviewed and electronically signed by: GOPAL BLAKELY MD on Jul 04 2021 3:07PM EST DIVISION OF RADIOLOGY * * *Final Report* * * DATE OF EXAM: Jul 04 2021 2:20PM WOX 5618 - XR KNEE 4V AP/PA/LAT/MERCH CHI / PROCEDURE REASON: multiple diagnoses * * * * Physician Interpretation * * * * Knee radiographs HISTORY: 70 years old Clinical information: Chronic pain of both knees Chronic pain of both knees Chronic pain of both knees Chronic diffuse bilateral knee pain increasing over the last 4-5 months without injury TECHNIQUE: Images: XR KNEE 4V AP/PA/LAT/MERCH CHI Comparison: None. RESULT: Findings: LEFT KNEE: Narrowing of the medial and lateral compartment joint spaces. Marginal osteophytes extending off the tibial plateaus. Osteophyte formation involving the posterior aspect of the patella. No fracture or dislocation. Knee joint effusion. RIGHT KNEE: Narrowing of the medial compartment joint space. Marginal osteophyte extending off the tibial plateaus. Osteophyte extending off the posterior aspect of the patella. No fracture or dislocation. No joint effusion. No soft tissue abnormality identified. DIVISION OF RADIOLOGY Provider, Dawit Kenny - 07/04/2021 * * *Final Report* * * DATE OF EXAM: Jul 04 2021 2:20PM WOX 5618 - XR KNEE 4V AP/PA/LAT/MERCH CHI / PROCEDURE REASON: multiple diagnoses * * * * Physician Interpretation * * * * Knee radiographs HISTORY: 70 years old Clinical information: Chronic pain of both knees Chronic pain of both knees Chronic pain of both knees Chronic diffuse bilateral knee pain increasing over the last 4-5 months without injury TECHNIQUE: Images: XR KNEE 4V AP/PA/LAT/MERCH CHI Comparison: None. RESULT: Findings: LEFT KNEE: Narrowing of the medial and lateral compartment joint spaces. Marginal osteophytes extending off the tibial plateaus. Osteophyte formation involving the posterior aspect of the patella. No fracture or dislocation. Knee joint effusion. RIGHT KNEE: Narrowing of the medial compartment joint space. Marginal osteophyte extending off the tibial plateaus. Osteophyte extending off the posterior aspect of the patella. No fracture or dislocation. No joint effusion. No soft tissue abnormality identified. IMPRESSION IMPRESSION: Osteoarthrosis of the knees and left hip Left-sided knee joint effusion.. Postsurgical change of the right hip. No complication. Design Editor: [facility] Transcribe Date/Time: Jul 04 2021 3:05P Dictated by : GOPAL BLAKELY MD This examination was interpreted and the report reviewed and electronically signed by: GOPAL BLAKELY MD on Jul 04 2021 3:07PM [facility] XR Lumbar spine 3 Viewson IMPRESSION: DEGENERATIVE CHANGE AND ALIGNMENT ABNORMALITIES DESCRIBED. PROGRESSION FROM THE PRIOR STUDY Design Editor: [facility] Transcribe Date/Time: Dec 13 2020 4:08P Dictated by : ENZO FOWLER MD This examination was interpreted and the report reviewed and electronically signed by: ENZO FOWLER MD on Dec 13 2020 4:23PM [facility] DIVISION OF RADIOLOGY * * *Final Report* * * DATE OF EXAM: Dec 13 2020 4:02PM WOX 5228 - XR LUMBAR 3V AP/LAT/L5-S1 / PROCEDURE REASON: DDD (degenerative disc disease), lumbar * * * * Physician Interpretation * * * * Examination: XR LUMBAR 3V AP/LAT/L5-S1 History: DDD (degenerative disc disease), lumbar Technique: XR LUMBAR 3V AP/LAT/L5-S1 Comparison: 10/18/2013 RESULT: 5 lumbar type vertebrae. For numbering purposes, L4-5 is at the level of the iliac crest. Moderate to severe L3-4 and L4-5 disc space narrowing. Moderate to severe narrowing at L1-2. Mild stable retrolisthesis of L1 with respect to L2. Mild retrolisthesis of L3 with respect to L4. Degenerative change involving the posterior elements from L3 through S1. No fracture or focal bony abnormality. Normal lordosis. Progression of degenerative change when compared with the prior study. Partially visualized right hip prosthesis. Moderate to severe degenerative change involving the left hip. SI joints appear unremarkable DIVISION OF RADIOLOGY Provider, Dawit Kenny - 12/13/2020 * * *Final Report* * * DATE OF EXAM: Dec 13 2020 4:02PM WOX 5228 - XR LUMBAR 3V AP/LAT/L5-S1 / PROCEDURE REASON: DDD (degenerative disc disease), lumbar * * * * Physician Interpretation * * * * Examination: XR LUMBAR 3V AP/LAT/L5-S1 History: DDD (degenerative disc disease), lumbar Technique: XR LUMBAR 3V AP/LAT/L5-S1 Comparison: 10/18/2013 RESULT: 5 lumbar type vertebrae. For numbering purposes, L4-5 is at the level of the iliac crest. Moderate to severe L3-4 and L4-5 disc space narrowing. Moderate to severe narrowing at L1-2. Mild stable retrolisthesis of L1 with respect to L2. Mild retrolisthesis of L3 with respect to L4. Degenerative change involving the posterior elements from L3 through S1. No fracture or focal bony abnormality. Normal lordosis. Progression of degenerative change when compared with the prior study. Partially visualized right hip prosthesis. Moderate to severe degenerative change involving the left hip. SI joints appear unremarkable IMPRESSION IMPRESSION: DEGENERATIVE CHANGE AND ALIGNMENT ABNORMALITIES DESCRIBED. PROGRESSION FROM THE PRIOR STUDY Design Editor: PSCB Transcribe Date/Time: Dec 13 2020 4:08P Dictated by : ENZO FOWLER MD This examination was interpreted and the report reviewed and electronically signed by: ENZO FOWLER MD on Dec 13 2020 4:23PM EST [facility] Radiology Study observation (narrative) [facility] XR Lumbar spine 3 ViewsOrder ed By: [facility] Provider on 12-13-2020 [facility] US ELASTOGRAPHY LIVER W/ABD LTDon 02-14-2019 US ELASTOGRAPHY LIVER W/ABD LTD ORIGINAL Ultrasound RIGHT upper quadrant and Hepatic elastography CLINICAL STATEMENT:HEP C, COMPARISON: None FINDINGS: The gallbladder is unremarkable. There is no intra or extrahepatic bile duct dilatation. The common duct is 5 mm at the steve hepatis. The liver is mildly heterogeneous in echotexture with partial masking of the portal triads. There is a small simple appearing 1.2 cm cyst within the left lobe. There is poor penetration of the periphery of the liver partially complicated by coarsened liver architecture, and body habitus. The pancreas is poorly visualized due to bowel gas. No ascites is seen in the RIGHT upper quadrant. Limited survey images of the RIGHT kidney measures 14.2 cm in length with mild cortical thinning but no collecting system dilatation Elastography of the liver was performed in the right lobe: Median velocity: 0.65 m/s IQR/median ratio: 0.24 (Value less than or equal to 0.3 should be seen to ensure exam adequacy.) IMPRESSION: Fatty infiltration of the liver without evidence of clinically significant fibrosis is noted. There are incidental findings as detailed above. \H\SRU Consensus of Suggested Thresholds in Patients with Hepatitis C (Based upon Siemens pSWE):\N\ Median Velocity: Recommendation: < 1.2 m/s (Seimens No Clinically Significant Fibrosis: METAVIR Stage 2.2 m/s Advanced Fibrosis and/or Cirrhosis: METAVIR Stage F4 and Some F3 Clinically significant Fibrosis \H\ \N\ Elastography Assessment of Liver Fibrosis: Society of Radiologists in Ultrasound Consensus Conference Statement Win Rhoades, Jackie Morales, Rich Haddad, Demarco Sampson, Norah Rodriguez, Joshua Phillip, Ar Mary, Dashawn Bales, Rachel Park, Delia Gan, and Delia Jain Radiology 2015 [id number], [id number] Interpreted By: Jesi Kumar MD Preliminary Report By: Jesi Kumar MD Electronically Signed By: Jesi Kumar MD Dictated Date: 02/14/2019 1:23:07 PM Prelim Date: 02/14/2019 1:23:07 PM Sign Date: 02/14/2019 1:24:41 PM Normal [facility] ([place]) Vital Signs Date Time Vital Sign Value Performing Clinician Sami goldstein 09-11-2024 15:01-0400 Body height 180.3 cm Vicente Quintana MD Work Phone: [facility] 09-11-2024 15:01-0400 Heart rate 92 /min Vicente Quintana MD Work Phone: [facility] 09-11-2024 15:01-0400 SaO2% (BldA) [Mass fraction] 97 % Vicente Quintana MD Work Phone: [facility] 09-06-2024 11:58-0400 Body temperature 97.39 [degF] Andressa Most RN Work Phone: [facility] 09-06-2024 11:58-0400 Diastolic blood pressure 72 mm[Hg] Andressa Most RN Work Phone: [facility] 09-06-2024 11:58-0400 Heart rate 92 /min Andressa Most RN Work Phone: [facility] 09-06-2024 11:58-0400 Respiratory rate 16 /min Andressa Most RN Work Phone: [facility] 09-06-2024 11:58-0400 SaO2% (BldA) [Mass fraction] 98 % Andressa Most RN Work Phone: [facility] 09-06-2024 11:58-0400 Systolic blood pressure 108 mm[Hg] Andressa Most RN Work Phone: [facility] 08-30-2024 14:57-0400 Body temperature 97.3 [degF] Andressa Most RN Work Phone: [facility] 08-30-2024 14:57-0400 Diastolic blood pressure 76 mm[Hg] Andressa Most RN Work Phone: [facility] 08-30-2024 14:57-0400 Heart rate 76 /min Andressa Most RN Work Phone: [facility] 08-30-2024 14:57-0400 Respiratory rate 16 /min Andressayoselyn Shah RN Work Phone: [facility] 08-30-2024 14:57-0400 SaO2% (BldA) [Mass fraction] 97 % Andressa Shah RN Work Phone: [facility] 08-30-2024 14:57-0400 Systolic blood pressure 118 mm[Hg] Andressayoselyn Shah RN Work Phone: [facility] 08-25-2024 12:42-0400 Body temperature 97.3 [degF] Mary Gerstenslager O T Work Phone: [facility] 08-25-2024 12:42-0400 Diastolic blood pressure 86 mm[Hg] Mary Gerstenslager OT Work Phone: [facility] 08-25-2024 12:42-0400 Heart rate 74 /min Mary Gerstenslager O T Work Phone: [facility] 08-25-2024 12:42-0400 SaO2% (BldA) [Mass fraction] 99 % Mary Gerstenslager OT Work Phone: [facility] 08-25-2024 12:42-0400 Systolic blood pressure 128 mm[Hg] Mary Gerstenslager OT Work Phone: [facility] 08-24-2024 14:30-0400 Diastolic blood pressure 72 mm[Hg] Jesus Knupp PT Work Phone: [facility] 08-24-2024 14:30-0400 Heart rate 74 /min Jesus Knupp PT Work Phone: [facility] 08-24-2024 14:30-0400 Respiratory rate 18 /min Jesus Knupp PT Work Phone: [facility] 08-24-2024 14:30-0400 SaO2% (BldA) [Mass fraction] 96 % Jesus Knupp PT Work Phone: [facility] 08-24-2024 14:30-0400 Systolic blood pressure 126 mm[Hg] Jesus Lolaupp PT Work Phone: [facility] 08-24-2024 14:03-0400 Body temperature 97.2 [degF] Jesus Lolaupp PT Work Phone: [facility] 08-23-2024 15:19-0400 Body temperature 97.81 [degF] Andressa Shah RN Work Phone: [facility] 08-23-2024 15:19-0400 Diastolic blood pressure 76 mm[Hg] Andressa Shah RN Work Phone: [facility] 08-23-2024 15:19-0400 Heart rate 84 /min Andressamiles Shah RN Work Phone: [facility] 08-23-2024 15:19-0400 Respiratory rate 16 /min Andressamiles Shah RN Work Phone: [facility] 08-23-2024 15:19-0400 SaO2% (BldA) [Mass fraction] 97 % Andressamiles Shah RN Work Phone: [facility] 08-23-2024 15:19-0400 Systolic blood pressure 110 mm[Hg] Andressa Shah RN Work Phone: [facility] 08-22-2024 14:05-0400 Body mass index (BMI) [Ratio] 27.75 kg/m2 Dany Gomez PA-C Work Phone: [facility] 08-22-2024 14:05-0400 Body temperature 97.5 [degF] Dany Gomez PA-C Work Phone: [facility] 08-22-2024 14:05-0400 Body weight 90.27 kg Dany Hernandezoney PA-C Work Phone: [facility] 08-22-2024 14:05-0400 Diastolic blood pressure 68 mm[Hg] Dany Hernandezoney PA-C Work Phone: [facility] 08-22-2024 14:05-0400 Heart rate 80 /min Dany Gomez PA-C Work Phone: [facility] 08-22-2024 14:05-0400 Respiratory rate 18 /min Dany Gomez PA-C Work Phone: [facility] 08-22-2024 14:05-0400 SaO2% (BldA) [Mass fraction] 95 % Dany Gomez PA-C Work Phone: [facility] 08-22-2024 14:05-0400 Systolic blood pressure 108 mm[Hg] Dany Gomez PA-C Work Phone: [facility] 08-16-2024 16:45-0400 Body temperature 98.91 [degF] Andressamiles Shah RN Work Phone: [facility] 08-16-2024 16:45-0400 Diastolic blood pressure 64 mm[Hg] Andressamiles Shah RN Work Phone: [facility] 08-16-2024 16:45-0400 Heart rate 76 /min Andressa Most RN Work Phone: [facility] 08-16-2024 16:45-0400 Respiratory rate 16 /min Andressa Most RN Work Phone: [facility] 08-16-2024 16:45-0400 SaO2% (BldA) [Mass fraction] 98 % Andressa RN Work Phone: [facility] 08-16-2024 16:45-0400 Systolic blood pressure 110 mm[Hg] Andressamiles Shah RN Work Phone: [facility] 08-16-2024 12:18-0400 Heart rate 83 /min Loreta Moreno OBREGON/L Work Phone: [facility] Comment on above: post tasks 08-16-2024 12:18-0400 SaO2% (BldA) [Mass fraction] 97 % Loretamelinda Cliftonnes OBREGON/L Work Phone: [facility] Comment on above: post tasks 08-16-2024 11:53-0400 Body temperature 98.29 [degF] Loreta Moreno OBREGON/L Work Phone: [facility] 08-16-2024 11:53-0400 Diastolic blood pressure 70 mm[Hg] Loreta Moreno OBREGON/L Work Phone: [facility] 08-16-2024 11:53-0400 Respiratory rate 18 /min Loreta Moreno OBREGON/L Work Phone: [facility] 08-16-2024 11:53-0400 Systolic blood pressure 116 mm[Hg] Loreta Moreno OBREGON/L Work Phone: [facility] 08-15-2024 14:49-0400 Body temperature 98.4 [degF] Noa Lima PT Work Phone: [facility] 08-15-2024 14:49-0400 Diastolic blood pressure 76 mm[Hg] Noa Lima PT Work Phone: [facility] 08-15-2024 14:49-0400 Heart rate 99 /min Noa Lima PT Work Phone: [facility] 08-15-2024 14:49-0400 Respiratory rate 16 /min Noa Lima PT Work Phone: [facility] 08-15-2024 14:49-0400 SaO2% (BldA) [Mass fraction] 98 % Noa Lima PT Work Phone: [facility] 08-15-2024 14:49-0400 Systolic blood pressure 112 mm[Hg] Noa Lima PT Work Phone: [facility] 08-11-2024 13:40-0400 Body temperature 97.9 [degF] Andressa Shah RN Work Phone: [facility] 08-11-2024 13:40-0400 Diastolic blood pressure 72 mm[Hg] Andressa Shah RN Work Phone: [facility] 08-11-2024 13:40-0400 Heart rate 80 /min Andressa Shah RN Work Phone: [facility] 08-11-2024 13:40-0400 SaO2% (BldA) [Mass fraction] 98 % Andressa Shah RN Work Phone: [facility] 08-11-2024 13:40-0400 Systolic blood pressure 116 mm[Hg] Andressa Shah RN Work Phone: [facility] 08-09-2024 12:10-0400 Body temperature 97.81 [degF] Molly Puja [employer] RO[employer] ATTENDANT Work Phone: [facility] 08-09-2024 12:10-0400 Diastolic blood pressure 80 mm[Hg] Molly Puja [employer] ROOM ATTENDANT Work Phone: [facility] 08-09-2024 12:10-0400 Heart rate 80 /min Andressa Shah RN Work Phone: [facility] 08-09-2024 12:10-0400 Respiratory rate 20 /min Molly Puja [employer] RO[employer] ATTENDANT Work Phone: [facility] 08-09-2024 12:10-0400 SaO2% (BldA) [Mass fraction] 96 % Molly Puja [employer] RO[employer] ATTENDANT Work Phone: [facility] 08-09-2024 12:10-0400 Systolic blood pressure 122 mm[Hg] Andressa Shah RN Work Phone: [facility] 08-09-2024 12:00-0400 Heart rate 84 /min Molly Puja [employer] ROOM ATTENDANT Work Phone: [facility] 08-09-2024 12:00-0400 Systolic blood pressure 116 mm[Hg] Molly Puja [employer] ROOM ATTENDANT Work Phone: [facility] 08-08-2024 11:40-0400 Heart rate 86 /min Loreta Moreno OBREGON/L Work Phone: [facility] Comment on above: post tasks 08-08-2024 11:40-0400 SaO2% (BldA) [Mass fraction] 97 % Loreta Moreno OBREGON/L Work Phone: [facility] Comment on above: post tasks 08-08-2024 11:13-0400 Body temperature 98.01 [degF] Loreta Moreno OBREGON/L Work Phone: [facility] 08-08-2024 11:13-0400 Diastolic blood pressure 76 mm[Hg] Loreta Moreno OBREGON/L Work Phone: [facility] 08-08-2024 11:13-0400 Respiratory rate 18 /min Loreta Moreno OBREGON/L Work Phone: [facility] 08-08-2024 11:13-0400 Systolic blood pressure 118 mm[Hg] Loreta Moreno OBREGON/L Work Phone: [facility] 08-07-2024 12:02-0400 Body temperature 97.59 [degF] Molly Puja [employer] ROOM ATTENDANT Work Phone: [facility] 08-07-2024 12:02-0400 Diastolic blood pressure 78 mm[Hg] Molly Puja CLUB ROOM ATTENDANT Work Phone: [facility] 08-07-2024 12:02-0400 Heart rate 67 /min Molly Puja CLUB ROOM ATTENDANT Work Phone: [facility] 08-07-2024 12:02-0400 Respiratory rate 18 /min Molly Puja CLUB ROOM ATTENDANT Work Phone: [facility] 08-07-2024 12:02-0400 SaO2% (BldA) [Mass fraction] 97 % Molly Puja CLUB ROOM ATTENDANT Work Phone: [facility] 08-07-2024 12:02-0400 Systolic blood pressure 118 mm[Hg] Molly Puja CLUB ROOM ATTENDANT Work Phone: [facility] 08-04-2024 15:46-0400 Body temperature 98.49 [degF] Edenilson Min RN Work Phone: [facility] 08-04-2024 15:46-0400 Diastolic blood pressure 64 mm[Hg] Edenilson Min RN Work Phone: [facility] 08-04-2024 15:46-0400 Heart rate 83 /min Edenilson Min RN Work Phone: [facility] 08-04-2024 15:46-0400 Respiratory rate 18 /min Edenilson Min RN Work Phone: [facility] 08-04-2024 15:46-0400 SaO2% (BldA) [Mass fraction] 96 % Edenilson Min RN Work Phone: [facility] 08-04-2024 15:46-0400 Systolic blood pressure 100 mm[Hg] Edenilson Min RN Work Phone: [facility] 08-04-2024 11:29-0400 Diastolic blood pressure 66 mm[Hg] Molly Puja CLUB ROOM ATTENDANT Work Phone: [facility] 08-04-2024 11:29-0400 Systolic blood pressure 118 mm[Hg] Molly Puja CLUB ROOM ATTENDANT Work Phone: [facility] 08-04-2024 11:12-0400 Body temperature 98.4 [degF] Molly Puja CLUB ROOM ATTENDANT Work Phone: [facility] 08-04-2024 11:12-0400 Heart rate 100 /min Molly Puja CLUB ROOM ATTENDANT Work Phone: [facility] 08-04-2024 11:12-0400 Respiratory rate 18 /min Molly Puja CLUB ROOM ATTENDANT Work Phone: [facility] 08-04-2024 11:12-0400 SaO2% (BldA) [Mass fraction] 96 % Molly Puja CLUB ROOM ATTENDANT Work Phone: [facility] 08-01-2024 13:47-0400 Diastolic blood pressure 60 mm[Hg] Molly Puja CLUB ROOM ATTENDANT Work Phone: [facility] 08-01-2024 13:47-0400 Heart rate 94 /min Molly Puja CLUB ROOM ATTENDANT Work Phone: [facility] 08-01-2024 13:47-0400 SaO2% (BldA) [Mass fraction] 95 % Molly Puja CLUB ROOM ATTENDANT Work Phone: [facility] 08-01-2024 13:47-0400 Systolic blood pressure 112 mm[Hg] Molly Puja CLUB ROOM ATTENDANT Work Phone: [facility] 08-01-2024 13:10-0400 Body temperature 97.81 [degF] Molly Puja CLUB ROOM ATTENDANT Work Phone: [facility] 08-01-2024 13:10-0400 Respiratory rate 18 /min Molly Puja CLUB ROOM ATTENDANT Work Phone: [facility] 07-31-2024 11:10-0400 Body temperature 97.11 [degF] Mary Gerstenslager O T Work Phone: [facility] 07-31-2024 11:10-0400 Diastolic blood pressure 82 mm[Hg] Mary Gerstenslager OT Work Phone: [facility] 07-31-2024 11:10-0400 Heart rate 66 /min Mary Gerstenslager O T Work Phone: [facility] 07-31-2024 11:10-0400 SaO2% (BldA) [Mass fraction] 94 % Mary Gerstenslager OT Work Phone: [facility] 07-31-2024 11:10-0400 Systolic blood pressure 118 mm[Hg] Mary Gerstenslager OT Work Phone: [facility] 07-29-2024 13:44-0400 Diastolic blood pressure 55 mm[Hg] America Nascimento PT Work Phone: [facility] Comment on above: dizzy 07-29-2024 13:44-0400 Systolic blood pressure 85 mm[Hg] America Nascimento PT Work Phone: [facility] Comment on above: dizzy 07-29-2024 13:20-0400 Body temperature 97.9 [degF] America Azam PT Work Phone: [facility] 07-29-2024 13:20-0400 Heart rate 99 /min America Nascimento PT Work Phone: [facility] 07-29-2024 13:20-0400 Respiratory rate 16 /min America Canadaerty PT Work Phone: [facility] 07-29-2024 13:20-0400 SaO2% (BldA) [Mass fraction] 94 % America Nascimento PT Work Phone: [facility] 07-28-2024 13:46-0400 Body temperature 98.49 [degF] Edenilson Min RN Work Phone: [facility] 07-28-2024 13:46-0400 Diastolic blood pressure 62 mm[Hg] Edenilson Min RN Work Phone: [facility] 07-28-2024 13:46-0400 Heart rate 94 /min Edenilson Min RN Work Phone: [facility] 07-28-2024 13:46-0400 Respiratory rate 18 /min Edenilson Min RN Work Phone: [facility] 07-28-2024 13:46-0400 SaO2% (BldA) [Mass fraction] 97 % Edenilson Min RN Work Phone: [facility] 07-28-2024 13:46-0400 Systolic blood pressure 100 mm[Hg] Edenilson Min RN Work Phone: [facility] 07-10-2024 14:44-0400 Diastolic blood pressure 78 mm[Hg] Abena Haagen FOOD AIDE.DIRECTOR OF TESTING Work Phone: [facility] 07-10-2024 14:44-0400 Heart rate 88 /min Abena Haagen FOOD AIDE.DIRECTOR OF TESTING Work Phone: [facility] 07-10-2024 14:44-0400 Respiratory rate 16 /min Abena Haagen FOOD AIDE.DIRECTOR OF TESTING Work Phone: [facility] 07-10-2024 14:44-0400 SaO2% (BldA) [Mass fraction] 98 % Abena Beckford FOOD AIDE.DIRECTOR OF TESTING Work Phone: [facility] 07-10-2024 14:44-0400 Systolic blood pressure 124 mm[Hg] Abena Beckford FOOD AIDE.DIRECTOR OF TESTING Work Phone: [facility] 07-10-2024 10:41-0400 Body height 180.3 cm Vicente Quintana MD Work Phone: [facility] 07-10-2024 10:41-0400 Diastolic blood pressure 77 mm[Hg] Vicente Quintana MD Work Phone: [facility] 07-10-2024 10:41-0400 Heart rate 85 /min Vicente Quintana MD Work Phone: [facility] 07-10-2024 10:41-0400 SaO2% (BldA) [Mass fraction] 96 % Vicente Quintana MD Work Phone: [facility] 07-10-2024 10:41-0400 Systolic blood pressure 113 mm[Hg] Vicente Quintana MD Work Phone: [facility] 04-10-2024 14:16-0400 Body mass index (BMI) [Ratio] 29.15 kg/m2 NA Zaidi PA-C Work Phone: [facility] 04-10-2024 14:16-0400 Body weight 94.8 kg NA Zaidi PA-C Work Phone: [facility] 04-10-2024 14:16-0400 Diastolic blood pressure 78 mm[Hg] NA Zaidi PA-C Work Phone: [facility] 04-10-2024 14:16-0400 Heart rate 88 /min NA Zaidi PA-C Work Phone: [facility] 04-10-2024 14:16-0400 Respiratory rate 16 /min NA Zaidi PA-C Work Phone: [facility] 04-10-2024 14:16-0400 SaO2% (BldA) [Mass fraction] 96 % NA Zaidi PA-C Work Phone: [facility] 04-10-2024 14:16-0400 Systolic blood pressure 111 mm[Hg] NA Zaidi PA-C Work Phone: [facility] 03-13-2024 14:13-0400 Body mass index (BMI) [Ratio] 29.99 kg/m2 Corrie Suppan FOOD AIDE.LOAN COLLECTOR Work Phone: [facility] 03-13-2024 14:13-0400 Body temperature 97.5 [degF] Corrie Suppan FOOD AIDE.LOAN COLLECTOR Work Phone: [facility] 03-13-2024 14:13-0400 Body weight 97.52 kg Corrie Suppan FOOD AIDE.LOAN COLLECTOR Work Phone: [facility] 03-13-2024 14:13-0400 Diastolic blood pressure 62 mm[Hg] Corrie Suppan FOOD AIDE.LOAN COLLECTOR Work Phone: [facility] 03-13-2024 14:13-0400 Heart rate 85 /min Corrie Suppan FOOD AIDE.LOAN COLLECTOR Work Phone: [facility] 03-13-2024 14:13-0400 Respiratory rate 14 /min Corrie Suppan FOOD AIDE.LOAN COLLECTOR Work Phone: [facility] 03-13-2024 14:13-0400 SaO2% (BldA) [Mass fraction] 97 % Corrie Suppan FOOD AIDE.LOAN COLLECTOR Work Phone: [facility] 03-13-2024 14:13-0400 Systolic blood pressure 108 mm[Hg] Corrie Suppan FOOD AIDE.LOAN COLLECTOR Work Phone: [facility] 02-09-2024 14:16-0400 Body height 180.3 cm Dennis Moore MD Work Phone: [facility] 02-09-2024 14:16-0400 Body weight 96.16 kg Dennis Moore MD Work Phone: [facility] 02-09-2024 14:16-0400 Diastolic blood pressure 60 mm[Hg] Dennis Moore MD Work Phone: [facility] 02-09-2024 14:16-0400 Heart rate 90 /min Dennis Moore MD Work Phone: [facility] 02-09-2024 14:16-0400 Respiratory rate 16 /min Dennis Moore MD Work Phone: [facility] 02-09-2024 14:16-0400 Systolic blood pressure 92 mm[Hg] Dennis Moore MD Work Phone: [facility] 02-03-2024 14:35-0400 Body weight 94.8 kg NA Zaidi PA-C Work Phone: [facility] 02-03-2024 14:35-0400 Diastolic blood pressure 70 mm[Hg] NA Zaidi PA-C Work Phone: [facility] 02-03-2024 14:35-0400 Heart rate 82 /min NA Zaidi PA-C Work Phone: [facility] 02-03-2024 14:35-0400 Respiratory rate 16 /min NA Zaidi PA-C Work Phone: [facility] 02-03-2024 14:35-0400 SaO2% (BldA) [Mass fraction] 98 % NA Zaidi PA-C Work Phone: [facility] 02-03-2024 14:35-0400 Systolic blood pressure 100 mm[Hg] NA Zaidi PA-C Work Phone: [facility] 01-31-2024 14:40-0400 Body height 180.3 cm Bharathi Wiggins APRN.CNP, DNP Work Phone: [facility] 01-31-2024 14:40-0400 Body temperature 97.3 [degF] Bharathi Wiggins APRN.CNP, DNP Work Phone: [facility] 01-31-2024 14:40-0400 Body weight 92.72 kg Bharathi Blaz FOOD AIDE.DIRECTOR OF TESTING , DNP Work Phone: [facility] 01-31-2024 14:40-0400 Diastolic blood pressure 70 mm[Hg] Bharathi Wiggins APRN.DIRECTOR OF TESTING, DNP Work Phone: [facility] 01-31-2024 14:40-0400 Heart rate 94 /min Bharathi Wiggins APRN.DIRECTOR OF TESTING , DNP Work Phone: [facility] 01-31-2024 14:40-0400 Respiratory rate 14 /min Bharathi Wiggins APRN.DIRECTOR OF TESTING , DNP Work Phone: [facility] 01-31-2024 14:40-0400 SaO2% (BldA) [Mass fraction] 99 % Bharathi Wiggins APRN.DIRECTOR OF TESTING, DNP Work Phone: [facility] 01-31-2024 14:40-0400 Systolic blood pressure 100 mm[Hg] Bharathi Wiggins APRN.DIRECTOR OF TESTING, DNP Work Phone: [facility] 01-03-2024 14:49-0500 Body height 180.3 cm Bharathi Wiggins APRN.DIRECTOR OF TESTING , DNP Work Phone: [facility] 01-03-2024 14:49-0500 Body temperature 97.3 [degF] Bharathi Wiggins APRN.DIRECTOR OF TESTING , DNP Work Phone: [facility] 01-03-2024 14:49-0500 Body weight 97.07 kg Bharathi Wiggins APRN.DIRECTOR OF TESTING , DNP Work Phone: [facility] 01-03-2024 14:49-0500 Diastolic blood pressure 80 mm[Hg] Bharathi Wiggins APRN.DIRECTOR OF TESTING, DNP Work Phone: [facility] 01-03-2024 14:49-0500 Heart rate 82 /min Bharathi Wiggins APRN.DIRECTOR OF TESTING , DNP Work Phone: [facility] 01-03-2024 14:49-0500 Respiratory rate 14 /min Bharathi Wiggins APRN.DIRECTOR OF TESTING , DNP Work Phone: [facility] 01-03-2024 14:49-0500 SaO2% (BldA) [Mass fraction] 96 % Bharathi Wiggins APRN.DIRECTOR OF TESTING, DNP Work Phone: [facility] 01-03-2024 14:49-0500 Systolic blood pressure 120 mm[Hg] Bharathi Wiggins APRN.DIRECTOR OF TESTING, DNP Work Phone: [facility] 01-03-2024 13:45-0500 Body weight 97.98 kg NA Zaidi PA-C Work Phone: [facility] 01-03-2024 13:45-0500 Diastolic blood pressure 82 mm[Hg] NA Zaidi PA-C Work Phone: [facility] 01-03-2024 13:45-0500 Heart rate 81 /min NA Zaidi PA-C Work Phone: [facility] 01-03-2024 13:45-0500 Respiratory rate 16 /min NA Zaidi PA-C Work Phone: [facility] 01-03-2024 13:45-0500 SaO2% (BldA) [Mass fraction] 96 % NA Zaidi PA-C Work Phone: [facility] 01-03-2024 13:45-0500 Systolic blood pressure 134 mm[Hg] NA Zaidi PA-C Work Phone: [facility] 10-28-2023 15:11-0500 Body temperature 97.59 [degF] NA Zaidi PA-C Work Phone: [facility] 10-28-2023 15:11-0500 Body weight 98.88 kg NA Zaidi PA-C Work Phone: [facility] 10-28-2023 15:11-0500 Diastolic blood pressure 72 mm[Hg] NA Zaidi PA-C Work Phone: [facility] 10-28-2023 15:11-0500 Heart rate 86 /min NA Zaidi PA-C Work Phone: [facility] 10-28-2023 15:11-0500 Respiratory rate 16 /min NA Zaidi PA-C Work Phone: [facility] 10-28-2023 15:11-0500 SaO2% (BldA) [Mass fraction] 96 % NA Zaidi PA-C Work Phone: [facility] 10-28-2023 15:11-0500 Systolic blood pressure 128 mm[Hg] NA Zaidi PA-C Work Phone: [facility] 10-20-2023 14:44-0500 Body height 180.3 cm Gudelia Samuel MD Work Phone: [facility] 10-20-2023 14:44-0500 Body weight 95.25 kg Gudelia Samuel MD Work Phone: [facility] 10-20-2023 14:44-0500 Respiratory rate 15 /min Gudelia Samuel MD Work Phone: [facility] 09-28-2023 14:37-0500 Body temperature 97.59 [degF] Joshua Dariel FOOD AIDE.DIRECTOR OF TESTING Work Phone: [facility] 09-28-2023 14:37-0500 Body weight 95.25 kg Joshua Dariel FOOD AIDE.DIRECTOR OF TESTING Work Phone: [facility] 09-28-2023 14:37-0500 Diastolic blood pressure 64 mm[Hg] Joshua Dariel FOOD AIDE.DIRECTOR OF TESTING Work Phone: [facility] 09-28-2023 14:37-0500 Heart rate 82 /min Joshua Dariel FOOD AIDE.DIRECTOR OF TESTING Work Phone: [facility] 09-28-2023 14:37-0500 Respiratory rate 18 /min Joshua Dariel FOOD AIDE.DIRECTOR OF TESTING Work Phone: [facility] 09-28-2023 14:37-0500 SaO2% (BldA) [Mass fraction] 95 % Joshua Dariel FOOD AIDE.DIRECTOR OF TESTING Work Phone: [facility] 09-28-2023 14:37-0500 Systolic blood pressure 108 mm[Hg] Joshua Dariel FOOD AIDE.DIRECTOR OF TESTING Work Phone: [facility] 07-29-2023 13:54-0400 Body weight 97.07 kg NA Zaidi PA-C Work Phone: [facility] 07-29-2023 13:54-0400 Diastolic blood pressure 78 mm[Hg] NA Zaidi PA-C Work Phone: [facility] 07-29-2023 13:54-0400 Heart rate 67 /min NA Zaidi PA-C Work Phone: [facility] 07-29-2023 13:54-0400 Respiratory rate 16 /min NA Zaidi PA-C Work Phone: [facility] 07-29-2023 13:54-0400 SaO2% (BldA) [Mass fraction] 97 % NA Zaidi PA-C Work Phone: [facility] 07-29-2023 13:54-0400 Systolic blood pressure 118 mm[Hg] NA Zaidi PA-C Work Phone: [facility] 07-07-2023 13:42-0400 Body height 180.3 cm Gudelia Samuel MD Work Phone: [facility] 07-07-2023 13:42-0400 Body weight 95.25 kg Gudelia Samuel MD Work Phone: [facility] 07-07-2023 13:42-0400 Respiratory rate 18 /min Gudelia Samuel MD Work Phone: [facility] 06-28-2023 13:59-0400 Body weight 95.25 kg NA Zaidi PA-C Work Phone: [facility] 06-28-2023 13:59-0400 Diastolic blood pressure 100 mm[Hg] NA Zaidi PA-C Work Phone: [facility] 06-28-2023 13:59-0400 Heart rate 80 /min NA Zaidi PA-C Work Phone: [facility] 06-28-2023 13:59-0400 Respiratory rate 16 /min NA Zaidi PA-C Work Phone: [facility] 06-28-2023 13:59-0400 Systolic blood pressure 152 mm[Hg] HONEY Zaidi PA-C Work Phone: [facility] 05-12-2023 09:02-0400 Body height 180.3 cm Gudelia Samuel MD Work Phone: [facility] 05-12-2023 09:02-0400 Body weight 86.64 kg Gudelia Samuel MD Work Phone: [facility] 05-12-2023 09:02-0400 Respiratory rate 16 /min Gudelia Samuel MD Work Phone: [facility] 05-07-2023 15:08-0400 Body temperature 97.11 [degF] Sanjay Masci DO Work Phone: [facility] 05-07-2023 15:08-0400 Body weight 86.86 kg Sanjay Masci DO Work Phone: [facility] 05-07-2023 15:08-0400 Diastolic blood pressure 50 mm[Hg] Sanjay Masci DO Work Phone: [facility] 05-07-2023 15:08-0400 Heart rate 83 /min Sanjay Masci DO Work Phone: [facility] 05-07-2023 15:08-0400 SaO2% (BldA) [Mass fraction] 96 % Sanjay Masci DO Work Phone: [facility] 05-07-2023 15:08-0400 Systolic blood pressure 81 mm[Hg] Sanjay Masci DO Work Phone: [facility] 03-31-2023 09:45-0400 Body height 180.3 cm Gudelia Samuel MD Work Phone: [facility] 03-31-2023 09:45-0400 Body weight 100.7 kg Gudelia Samuel MD Work Phone: [facility] 03-31-2023 09:45-0400 Respiratory rate 20 /min Gudelia Samuel MD Work Phone: [facility] 03-17-2023 09:06-0400 Body height 177.8 cm Gudelia Samuel MD Work Phone: [facility] 03-17-2023 09:06-0400 Body weight 100.25 kg Gudelia Samuel MD Work Phone: [facility] 03-17-2023 09:06-0400 Respiratory rate 20 /min Gudelia Samuel MD Work Phone: [facility] 02-24-2023 14:34-0400 Body height 177.8 cm Gudelia Samuel MD Work Phone: [facility] 02-24-2023 14:34-0400 Body weight 98.88 kg Gudelia Samuel MD Work Phone: [facility] 02-24-2023 14:34-0400 Respiratory rate 16 /min Gudelia Samuel MD Work Phone: [facility] 02-16-2023 15:24-0400 Body height 177.8 cm Dany Gomez PA-C Work Phone: [facility] 02-16-2023 15:24-0400 Body temperature 97.39 [degF] Dany Gomez PA-C Work Phone: [facility] 02-16-2023 15:24-0400 Body weight 98.88 kg Dany Gomez PA-C Work Phone: [facility] 02-16-2023 15:24-0400 Diastolic blood pressure 80 mm[Hg] Dany Gomez PA-C Work Phone: [facility] 02-16-2023 15:24-0400 Heart rate 84 /min Dany Gomez PA-C Work Phone: [facility] 02-16-2023 15:24-0400 Respiratory rate 14 /min Dany Gomez PA-C Work Phone: [facility] 02-16-2023 15:24-0400 SaO2% (BldA) [Mass fraction] 94 % Dany Gomez PA-C Work Phone: [facility] 02-16-2023 15:24-0400 Systolic blood pressure 136 mm[Hg] Dany Gomez PA-C Work Phone: [facility] 02-11-2023 13:53-0400 Body temperature 98.1 [degF] Gracy Dahlhausen FOOD AIDE.DIRECTOR OF TESTING Work Phone: [facility] 02-11-2023 13:53-0400 Diastolic blood pressure 74 mm[Hg] Gracy Dahlhausen FOOD AIDE.DIRECTOR OF TESTING Work Phone: [facility] 02-11-2023 13:53-0400 Heart rate 99 /min Gracy Dahlhausen FOOD AIDE.DIRECTOR OF TESTING Work Phone: [facility] 02-11-2023 13:53-0400 Respiratory rate 20 /min Gracy Dahlhausen FOOD AIDE.DIRECTOR OF TESTING Work Phone: [facility] 02-11-2023 13:53-0400 SaO2% (BldA) [Mass fraction] 96 % Gracy Dahlhausen FOOD AIDE.DIRECTOR OF TESTING Work Phone: [facility] 02-11-2023 13:53-0400 Systolic blood pressure 110 mm[Hg] Gracy Dahlhausen FOOD AIDE.DIRECTOR OF TESTING Work Phone: [facility] 01-27-2023 15:04-0500 Body height 177.8 cm Gudelia Samuel MD Work Phone: [facility] 01-27-2023 15:04-0500 Body weight 99.79 kg Gudelia Samuel MD Work Phone: [facility] 01-27-2023 15:04-0500 Respiratory rate 20 /min Gudelia Samuel MD Work Phone: [facility] 11-19-2022 16:07-0500 Body weight 98.43 kg NA Zaidi PA-C Work Phone: [facility] 11-19-2022 16:07-0500 Diastolic blood pressure 90 mm[Hg] NA Zaidi PA-C Work Phone: [facility] 11-19-2022 16:07-0500 Heart rate 74 /min NA Zaidi PA-C Work Phone: [facility] 11-19-2022 16:07-0500 Respiratory rate 18 /min NA Zaidi PA-C Work Phone: [facility] 11-19-2022 16:07-0500 SaO2% (BldA) [Mass fraction] 98 % NA Zaidi PA-C Work Phone: [facility] 11-19-2022 16:07-0500 Systolic blood pressure 138 mm[Hg] NA Zaidi PA-C Work Phone: [facility] 11-02-2022 11:04-0500 Diastolic blood pressure 88 mm[Hg] Abena Haagen FOOD AIDE.DIRECTOR OF TESTING Work Phone: [facility] 11-02-2022 11:04-0500 Heart rate 79 /min Abena Haagen FOOD AIDE.DIRECTOR OF TESTING Work Phone: [facility] 11-02-2022 11:04-0500 Respiratory rate 18 /min Abena Haagen FOOD AIDE.DIRECTOR OF TESTING Work Phone: [facility] 11-02-2022 11:04-0500 SaO2% (BldA) [Mass fraction] 98 % Abena Haagen FOOD AIDE.DIRECTOR OF TESTING Work Phone: [facility] 11-02-2022 11:04-0500 Systolic blood pressure 144 mm[Hg] Abena Haagen FOOD AIDE.DIRECTOR OF TESTING Work Phone: [facility] 09-10-2022 10:46-0400 Body weight 100.25 kg NA Zaidi PA-C Work Phone: [facility] 09-10-2022 10:46-0400 Diastolic blood pressure 84 mm[Hg] NA Zaidi PA-C Work Phone: [facility] 09-10-2022 10:46-0400 Heart rate 93 /min NA Zaidi PA-C Work Phone: [facility] 09-10-2022 10:46-0400 Respiratory rate 16 /min NA Zaidi PA-C Work Phone: [facility] 09-10-2022 10:46-0400 SaO2% (BldA) [Mass fraction] 97 % NA Zaidi PA-C Work Phone: [facility] 09-10-2022 10:46-0400 Systolic blood pressure 144 mm[Hg] NA Zaidi PA-C Work Phone: [facility] 08-10-2022 10:16-0400 Body height 180.3 cm Brock Potrillo MD Work Phone: [facility] 08-10-2022 10:16-0400 Body weight 101.61 kg Brock Portillo MD Work Phone: [facility] 08-10-2022 10:16-0400 Diastolic blood pressure 91 mm[Hg] Brock Portillo MD Work Phone: [facility] 08-10-2022 10:16-0400 Heart rate 69 /min Brock Portillo MD Work Phone: [facility] 08-10-2022 10:16-0400 Respiratory rate 16 /min Brock Portillo MD Work Phone: [facility] 08-10-2022 10:16-0400 SaO2% (BldA) [Mass fraction] 96 % Brock Portillo MD Work Phone: [facility] 08-10-2022 10:16-0400 Systolic blood pressure 142 mm[Hg] Brock Poritllo MD Work Phone: [facility] 06-18-2022 11:23-0400 Body temperature 97.39 [degF] Gracy Sears FOOD AIDE.DIRECTOR OF TESTING Work Phone: [facility] 06-18-2022 11:23-0400 Body weight 101.15 kg Gracypierre Sears FOOD AIDE.DIRECTOR OF TESTING Work Phone: [facility] 06-18-2022 11:23-0400 Diastolic blood pressure 86 mm[Hg] Gracy Sears FOOD AIDE.DIRECTOR OF TESTING Work Phone: [facility] 06-18-2022 11:23-0400 Heart rate 88 /min Gracy Dahlhausen FOOD AIDE.DIRECTOR OF TESTING Work Phone: [facility] 06-18-2022 11:23-0400 Respiratory rate 18 /min Gracy Dahlhausen FOOD AIDE.DIRECTOR OF TESTING Work Phone: [facility] 06-18-2022 11:23-0400 SaO2% (BldA) [Mass fraction] 96 % Gracy Dahlhausen FOOD AIDE.DIRECTOR OF TESTING Work Phone: [facility] 06-18-2022 11:23-0400 Systolic blood pressure 124 mm[Hg] Gracy Dahlhausen FOOD AIDE.DIRECTOR OF TESTING Work Phone: [facility] 05-12-2022 11:45-0400 Body weight 101.61 kg NA Zaidi PA-C Work Phone: [facility] 05-12-2022 11:45-0400 Diastolic blood pressure 74 mm[Hg] NA Zaidi PA-C Work Phone: [facility] 05-12-2022 11:45-0400 Heart rate 73 /min NA Zaidi PA-C Work Phone: [facility] 05-12-2022 11:45-0400 Respiratory rate 20 /min NA Zaidi PA-C Work Phone: [facility] 05-12-2022 11:45-0400 SaO2% (BldA) [Mass fraction] 97 % NA Zaidi PA-C Work Phone: [facility] 05-12-2022 11:45-0400 Systolic blood pressure 122 mm[Hg] NA Zaidi PA-C Work Phone: [facility] 05-07-2022 16:01-0400 Body height 181 cm Sanjay Bhat DO Work Phone: [facility] 05-07-2022 16:01-0400 Body temperature 98.1 [degF] Sanjay Bhat DO Work Phone: [facility] 05-07-2022 16:01-0400 Body weight 100.92 kg Sanjay Cobbi DO Work Phone: [facility] 05-07-2022 16:01-0400 Diastolic blood pressure 77 mm[Hg] Sanjay Cobbi DO Work Phone: [facility] 05-07-2022 16:01-0400 Heart rate 71 /min Sanjay Cobbi DO Work Phone: [facility] 05-07-2022 16:01-0400 SaO2% (BldA) [Mass fraction] 96 % Sanjay Cobbi DO Work Phone: [facility] 05-07-2022 16:01-0400 Systolic blood pressure 166 mm[Hg] Sanjay Cobbi DO Work Phone: [facility] 04-16-2022 11:30-0400 Body height 188 cm Mayra Horne Work Phone: [facility] 04-16-2022 11:30-0400 Body weight 101.61 kg Mayra Horne Work Phone: [facility] 04-16-2022 11:30-0400 Diastolic blood pressure 73 mm[Hg] Mayra Gale PA-C Work Phone: [facility] 04-16-2022 11:30-0400 Heart rate 89 /min Mayra Horne Work Phone: [facility] 04-16-2022 11:30-0400 Systolic blood pressure 117 mm[Hg] Marya Gale PA-C Work Phone: [facility] 03-19-2022 13:48-0400 Body temperature 98.6 [degF] Gracy Fritzhausen FOOD AIDE.DIRECTOR OF TESTING Work Phone: [facility] 03-19-2022 13:48-0400 Body weight 103.42 kg Gracy Lamhausen FOOD AIDE.DIRECTOR OF TESTING Work Phone: [facility] 03-19-2022 13:48-0400 Diastolic blood pressure 68 mm[Hg] Gracy Sears FOOD AIDE.DIRECTOR OF TESTING Work Phone: [facility] 03-19-2022 13:48-0400 Heart rate 99 /min Gracy Sears FOOD AIDE.DIRECTOR OF TESTING Work Phone: [facility] 03-19-2022 13:48-0400 Respiratory rate 18 /min Gracypierre Sears FOOD AIDE.DIRECTOR OF TESTING Work Phone: [facility] 03-19-2022 13:48-0400 SaO2% (BldA) [Mass fraction] 96 % Gracy Sears FOOD AIDE.DIRECTOR OF TESTING Work Phone: [facility] 03-19-2022 13:48-0400 Systolic blood pressure 126 mm[Hg] Gracy Sears FOOD AIDE.DIRECTOR OF TESTING Work Phone: [facility] 02-23-2022 09:45-0400 Body height 180.3 cm Pacc 1 Work Phone: [facility] 02-23-2022 09:45-0400 Body temperature 97.81 [degF] Pacc 1 Work Phone: [facility] 02-23-2022 09:45-0400 Body weight 102.51 kg Pacc 1 Work Phone: [facility] 02-23-2022 09:45-0400 Diastolic blood pressure 102 mm[Hg] Pacc 1 Work Phone: [facility] 02-23-2022 09:45-0400 Heart rate 89 /min Pacc 1 Work Phone: [facility] 02-23-2022 09:45-0400 Respiratory rate 16 /min Pacc 1 Work Phone: [facility] 02-23-2022 09:45-0400 SaO2% (BldA) [Mass fraction] 100 % Pacc 1 Work Phone: [facility] 02-23-2022 09:45-0400 Systolic blood pressure 154 mm[Hg] Pacc 1 Work Phone: [facility] 12-29-2021 10:12-0500 Diastolic blood pressure 90 mm[Hg] Brock Portillo MD Work Phone: [facility] 12-29-2021 10:12-0500 Heart rate 82 /min Brock Portillo MD Work Phone: [facility] 12-29-2021 10:12-0500 Systolic blood pressure 134 mm[Hg] Brock Portillo MD Work Phone: [facility] 12-29-2021 09:41-0500 Body height 180.3 cm Brock Portillo MD Work Phone: [facility] 12-29-2021 09:41-0500 Body weight 102.33 kg Brock Portillo MD Work Phone: [facility] 12-29-2021 09:41-0500 SaO2% (BldA) [Mass fraction] 97 % Brock Portillo MD Work Phone: [facility] Encounters Encounter Date Encounter Type Care Provider Facility Start: 09-11-2024 End: 09-11-2024 Patient encounter procedure Vicente Quintana MD Work Phone: [facility] Comment on above: BPH with obstruction /lower urinary tract symptoms (Primary Dx); Urine retention Start: 09-11-2024 End: 09-11-2024 Home visit Inez AVILA Work Phone: [facility] Comment on above: AIRCRAFT STRUCTURAL REPAIRER CARE COORDINATIO N CARE COORDINATION Start: 09-07-2024 End: 09-11-2024 Telephone encounter Navin Ackerman MD Work Phone: [facility] [place] Comment on above: Patient Update; Orde rs Start: 09-07-2024 End: 09-07-2024 Home visit Inez AVILA Work Phone: [facility] Comment on above: AIRCRAFT STRUCTURAL REPAIRER CARE COORDINATIO N CARE COORDINATION Start: 09-06-2024 End: 09-07-2024 Telephone encounter Andressa Most RN Work Phone: [facility] Comment on above: Patient Update; Home Care Start: 09-06-2024 End: 09-06-2024 Home visit Andressa Shah RN Work Phone: [facility] Comment on above: SN ROUTINE Start: 08-30-2024 End: 08-30-2024 Home visit Andressa Shah RN Work Phone: [facility] Comment on above: SN ROUTINE Start: 08-29-2024 End: 08-29-2024 Home visit Inez Estarda WAITER/WAITRESS Work Phone: [facility] Comment on above: AIRCRAFT STRUCTURAL REPAIRER CARE COORDINATIO N Start: 08-28-2024 End: 08-28-2024 Home visit Inez Estrada WAITER/WAITRESS Work Phone: [facility] Comment on above: AIRCRAFT STRUCTURAL REPAIRER CARE COORDINATIO N Start: 08-28-2024 End: 08-28-2024 Home visit Inez Estrada WAITER/WAITRESS Work Phone: [facility] Comment on above: AIRCRAFT STRUCTURAL REPAIRER CARE COORDINATIO N Start: 08-25-2024 End: 08-25-2024 Home visit Mary Lopez OT Work Phone: [facility] Comment on above: OT DISC DC W VISIT Start: 08-24-2024 End: 08-24-2024 Refill Lena Steele [facility] Comment on above: Refill Request PT DISC DC W VISIT Start: 08-23-2024 End: 08-23-2024 Home visit Jocelyn Palafox AGRICULTURAL ENGINEERING TEACHER Work Phone: [facility] Comment on above: AGRICULTURAL ENGINEERING TEACHER DISC DC W VISIT SN ROUTINE Start: 08-22-2024 End: 08-22-2024 ambulatory Marbella ZAIDI Facility:[facility] Start: 08-22-2024 End: 08-22-2024 Patient encounter procedure Dany Gomez PA-C Work Phone: Urology Comment on above: Urine retention (Philipp michael Dx) Start: 08-21-2024 End: 08-21-2024 Refill Vicente Quintana MD Work Phone: [facility] Comment on above: Refill Request Start: 08-18-2024 End: 08-18-2024 Home visit Inez Estrada WAITER/WAITRESS Work Phone: [facility] Comment on above: AIRCRAFT STRUCTURAL REPAIRER CARE COORDINATIO N Start: 08-17-2024 End: 08-17-2024 Telephone encounter Shelby Sidhu [facility] Comment on above: Compliance Adherence (Adherence pharmacy referral ) Refill Request Start: 08-17-2024 End: 08-17-2024 Home visit Inez Estrada WAITER/WAITRESS Work Phone: [facility] Comment on above: AIRCRAFT STRUCTURAL REPAIRER CARE COORDINATIO N Start: 08-17-2024 End: 08-17-2024 Home visit Inez Estrada WAITER/WAITRESS Work Phone: [facility] Comment on above: [facility] CARE COORDINATIO N Start: 08-16-2024 End: 08-16-2024 Home visit Loreta Moreno OBREGON/L Work Phone: [facility] Comment on above: OBREGON ROUTINE Refill Request SN ROUTINE Start: 08-16-2024 End: 08-16-2024 Home visit Jocelyn Palafox AGRICULTURAL ENGINEERING TEACHER Work Phone: [facility] Comment on above: AGRICULTURAL ENGINEERING TEACHER ROUTINE Start: 08-15-2024 End: 08-15-2024 Home visit Noa Lima PT Work Phone: [facility] Comment on above: PT ROUTINE Start: 08-11-2024 End: 08-11-2024 Home visit Andressa Shah RN Work Phone: [facility] Comment on above: SN ROUTINE Start: 08-09-2024 End: 08-09-2024 Telephone encounter Inez Estrada WAITER/WAITRESS Work Phone: [facility] Comment on above: Home Care Start: 08-09-2024 End: 08-09-2024 Home visit Molly Mariscal CLUB ROOM ATTENDANT Work Phone: [facility] Comment on above: CLUB ROOM ATTENDANT ROUTINE AGRICULTURAL ENGINEERING TEACHER ROUTINE AIRCRAFT STRUCTURAL REPAIRER CARE COORDINATIO N SN ROUTINE Start: 08-08-2024 End: 08-08-2024 Home visit Loreta Moreno OBREGON/L Work Phone: [facility] Comment on above: OBREGON ROUTINE Start: 08-07-2024 End: 08-07-2024 Home visit Molly Mariscal CLUB ROOM ATTENDANT Work Phone: [facility] Comment on above: CLUB ROOM ATTENDANT ROUTINE AIRCRAFT STRUCTURAL REPAIRER CARE COORDINATIO N Start: 08-04-2024 End: 08-04-2024 Home visit Jocelyn Palafox AGRICULTURAL ENGINEERING TEACHER Work Phone: [facility] Comment on above: AGRICULTURAL ENGINEERING TEACHER ROUTINE Start: 08-04-2024 End: 08-04-2024 Home visit Inez Estrada WAITER/WAITRESS Work Phone: [facility] Comment on above: AIRCRAFT STRUCTURAL REPAIRER CARE COORDINATIO N CLUB ROOM ATTENDANT ROUTINE SN ROUTINE Start: 08-02-2024 End: 08-02-2024 Telephone encounter Bharathi Wiggins APRN.DIRECTOR OF TESTING, DNP Work Phone: [facility] Comment on above: Patient Question Start: 08-02-2024 End: 08-02-2024 Home visit Inez Estrada WAITER/WAITRESS Work Phone: [facility] Comment on above: AIRCRAFT STRUCTURAL REPAIRER CARE COORDINATIO N Start: 08-01-2024 End: 08-01-2024 Telephone encounter Inez Estrada WAITER/WAITRESS Work Phone: [facility] Comment on above: Home Jail Care (BP readin gs ) Start: 08-01-2024 End: 08-01-2024 Home visit Molly Mariscal CLUB ROOM ATTENDANT Work Phone: [facility] Comment on above: CLUB ROOM ATTENDANT ROUTINE AIRCRAFT STRUCTURAL REPAIRER CARE COORDINATIO N CARE COORDINATION AIRCRAFT STRUCTURAL REPAIRER EVAL Start: 07-31-2024 End: 07-31-2024 Orders Only Rachel Fisher RN [facility] Comment on above: BPH with obstruction /lower urinary tract symptoms (Primary Dx) 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 EVAL SN ROUTINE Start: 07-30-2024 End: 07-30-2024 Telephone encounter America Nascimento PT Work Phone: [facility] Comment on above: Home Care (PT Evalua tion/Orthostatic Hypotension) Start: 07-29-2024 End: 07-29-2024 Home visit America Nascimento PT Work Phone: [facility] Comment on above: PT EVAL Start: 07-28-2024 End: 08-11-2024 Telephone encounter Edenilson Min RN Work Phone: [facility] Comment on above: Home Care (Request f or AIRCRAFT STRUCTURAL REPAIRER referral) Start: 07-28-2024 End: 07-28-2024 Home visit Edenilson Min RN Work Phone: [facility] Comment on above: SN SOC Start: 07-26-2024 End: 08-08-2024 Telephone encounter Vicente Quintana MD Work Phone: Urology Comment on above: Appointment Home Care (MD omaira judge) Home Care (Confirmat ion Call ) Start: 07-25-2024 End: 07-26-2024 ambulatory VICENTE QUINTANA Facility:[facility] Start: 07-17-2024 End: 07-17-2024 Telephone encounter Vicente Quintana MD Work Phone: [facility] Comment on above: Results Start: 07-14-2024 End: 07-14-2024 Telephone encounter Marbella Zaidi PA-C Work Phone: [facility] Comment on above: Results Start: 07-11-2024 End: 07-11-2024 Telephone encounter Vicente Quintana MD Work Phone: [facility] Comment on above: Surgery Scheduled Start: 07-10-2024 End: 07-10-2024 ambulatory Marbella ZAIDI Facility:[facility] Start: 07-10-2024 End: 07-10-2024 Office outpatient visit 25 minutes Abena Beckford APRN.CNP Work Phone: [facility] Comment on above: DDD (degenerative di sc disease), lumbar (Primary Dx); 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; Overflow incontinence of urine; Chronic pain syndrome; Primary hypertension; Sleeping difficulty; Chronic vertigo Start: 07-10-2024 End: 07-10-2024 ambulatory ABENA BECKFORD Facility:[facility] Start: 07-10-2024 End: 07-10-2024 Patient encounter procedure Vicente Quintana MD Work Phone: [facility] Comment on above: Urine retention (Philipp michael Dx); Hydronephrosis, unspecified hydronephrosis type; BPH with obstruction/lower urinary tract symptoms BPH with obstruction /lower urinary tract symptoms (Primary Dx); Urine retention; Hydronephrosis, unspecified hydronephrosis type Start: 07-10-2024 End: 07-10-2024 ambulatory VICENTE QUINTANA Facility:[facility] Start: 07-04-2024 End: 07-04-2024 ambulatory Marbella ZAIDI Facility:[facility] Start: 07-04-2024 End: 07-04-2024 Nursing evaluation of patient and report Nurse Urol [facility] Work Phone: Urology Comment on above: Urine retention (Philipp michael Dx) Start: 06-21-2024 Telephone encounter Navin Ackerman MD Work Phone: [facility] [place] Comment on above: Patient Update Start: 05-30-2024 End: 05-30-2024 Patient encounter procedure Kerri Farmer APRN.DIRECTOR OF TESTING Work Phone: [facility] Comment on above: Problem with Karissa browne, initial encounter (HCC) (Primary Dx) Start: 05-30-2024 End: 05-30-2024 ambulatory Marbella IGNACIO ZAIDI Facility:[facility] Start: 04-28-2024 End: 04-28-2024 [facility] Start: 04-25-2024 Telephone encounter Marbella Zaidi PA-C Work Phone: [facility] [place] Comment on above: [facility] update Start: 04-21-2024 Telephone encounter Saskia J Co yner FOOD AIDE.DIRECTOR OF TESTING Work Phone: Urology Comment on above: [facility] [place] Change Ord ers Start: 04-19-2024 Telephone encounter Saskia coronado FOOD AIDE.DIRECTOR OF TESTING Work Phone: Urology Start: 04-19-2024 End: 04-19-2024 ambulatory DEMETRICE MARCIAL Facility:[facility] Start: 04-19-2024 End: 04-19-2024 Patient encounter procedure Saskia Sears FOOD AIDE.DIRECTOR OF TESTING Work Phone: [facility]rology Comment on above: Urine retention (Philipp michael Dx); Hydronephrosis, unspecified hydronephrosis type; BPH with obstruction/lower urinary tract symptoms Start: 04-14-2024 Telephone encounter Marbella Zaidi PA-C Work Phone: [facility] [place] Comment on above: Orders; Appointment Start: 04-12-2024 Telephone encounter Marbella Zaidi PA-C Work Phone: [facility] [place] Comment on above: Orders FYI-PT plan of care Start: 04-10-2024 End: 04-10-2024 ambulatory Marbella ZAIDI Facility:[facility] Start: 04-10-2024 End: 04-10-2024 Patient encounter procedure Marbella Zaidi PA-C Work Phone: [facility] [place] Comment on above: DDD (degenerative di sc disease), lumbar (Primary Dx); MGUS (monoclonal gammopathy of unknown significance); Paresthesia of saddle area: Cauda equina ruled out; Neurogenic claudication; Waldenstrom macroglobulinemia (HCC); Testicular atrophy; Stage 3b chronic kidney disease (HCC); 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; Dizziness; Adjustment disorder with depressed mood; Chronic pain syndrome; Hepatitis C associated neuropathy (HCC) Start: 04-05-2024 Telephone encounter Marbella Zaidi PA-C Work Phone: [facility] [place] Comment on above: Results; Home Health Point of Care Results Start: 04-04-2024 Telephone encounter Marbella Zaidi PA-C Work Phone: [facility] [place] Comment on above: Orders Start: 03-28-2024 Refill Marbella cervantes PA-C Work Phone: [facility] [place] Comment on above: Patient Update; Refi ll Request (/) Start: 03-23-2024 Telephone encounter Marbella OLEAC Work Phone: [facility] [place] Comment on above: Blood pressure readi ng Start: 03-21-2024 Telephone encounter Marbella GOEL-Coleen Work Phone: [facility] [place] Comment on above: [facility]- low blood pr essure Start: 03-20-2024 Telephone encounter Marbella GOEL-C Work Phone: [facility] [place] Comment on above: [facility] OT Plan of Ca re; ST Order Request Patient Update Start: 03-17-2024 Telephone encounter Corrie Marinelli FOOD AIDE.LOAN COLLECTOR Work Phone: [facility] [place] Start: 03-16-2024 Telephone encounter Marbella Zaidi PA-C Work Phone: [facility] [place] Comment on above: Delay of care - verb al needed. home health requesti ng verbal order Start: 03-15-2024 Telephone encounter Marbella Zaidi PA-C Work Phone: [facility] [place] Comment on above: PT plan of care Start: 03-13-2024 End: 03-13-2024 ambulatory Marbella ZAIDI Facility:[facility] Start: 03-13-2024 End: 03-13-2024 Office outpatient visit 25 minutes Corrie Marinelli FOOD AIDE.LOAN COLLECTOR Work Phone: [facility] [place] Comment on above: Sleeping difficulty (Primary Dx); Paresthesia of saddle area: Cauda equina ruled out; Primary hypertension; Progressive focal motor weakness Start: 03-13-2024 Telephone encounter Marbella OLEAC Work Phone: [facility] [place] Comment on above: [facility]- verbal order s/medication issues Start: 03-10-2024 Telephone encounter Navin Ackerman MD Work Phone: [facility] [place] Comment on above: home health calling Start: 03-06-2024 End: 03-06-2024 Patient encounter procedure Bharathi Rosalie GANDHI.DIRECTOR OF TESTING, DNP Work Phone: [facility]rology Comment on above: No-show for appointm ent (Primary Dx) Start: 03-02-2024 Telephone encounter Deann WILKERSON Navigation Start: 02-24-2024 ambulatory Marbella Ignacio Eliseo cervantes PA-C Work Phone: Ambulatory Surgery Start: 02-14-2024 Telephone encounter Deann WILKERSON Navigation Start: 02-09-2024 End: 02-09-2024 ambulatory Marbella ZAIDI Facility:[facility] Start: 02-09-2024 End: 02-09-2024 Patient encounter procedure Dennis Moore MD Work Phone: Urology Comment on above: Urinary retention (P rimary Dx); 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 Start: 02-09-2024 Telephone encounter Marbella GOEL-C Work Phone: [facility] Comment on above: Home Care Start: 02-08-2024 Telephone encounter Deann WILKERSON Navigation Comment on above: Orders Start: 02-04-2024 Telephone encounter Marbella Ignacio GOEL-C Work Phone: [facility] [place] Comment on above: Insurance Authorizat ion Med Change Request; Other (Handicap placard ); Orders Start: 02-03-2024 End: 02-03-2024 ambulatory Marbella ZAIDI Facility:[facility] Start: 02-03-2024 End: 02-03-2024 Patient encounter procedure Marbella Ignacio GOEL-C Work Phone: [facility] [place] Comment on above: Hospital discharge f ollow-up (Primary Dx); Acute urinary tract infection; Acute renal failure superimposed on stage 3a chronic kidney disease, unspecified acute renal failure type (HCC); Frailty; At high risk for falls; Paresthesia of saddle area: Cauda equina ruled out; DDD (degenerative disc disease), lumbar; Intractable low back pain; Chronic vertigo; S/P laminectomy; MGUS (monoclonal gammopathy of unknown significance); Hypogonadism in male; Waldenstrom macroglobulinemia (HCC) Start: 02-03-2024 Telephone encounter Marbella Zaidi PA-C Work Phone: [facility] Comment on above: Orders Orders; Patient Upda te Start: 02-01-2024 Telephone encounter Deann Tyson [facility] Comment on above: Social Work Services Start: 01-31-2024 End: 01-31-2024 ambulatory IGNACIO ZAIDI Facility:[facility] Start: 01-31-2024 End: 01-31-2024 Patient encounter procedure Bharathi Wiggins APRN.CNP, RENE Work Phone: Urology Comment on above: Benign prostatic hyp erplasia with incomplete bladder emptying (Primary Dx); Overflow incontinence of urine; Urinary retention; Hydronephrosis, unspecified hydronephrosis type; Stage 3b chronic kidney disease (HCC); Frailty; At high risk for falls Start: 01-10-2024 Telephone encounter Bharathi morris APRN.MYRA, RENE Work Phone: Urology Comment on above: Patient Update Start: 01-04-2024 End: 07-21-2024 Telephone encounter Abena Beckford APRN.CNP Work Phone: [facility] Comment on above: Results Start: 01-04-2024 End: 01-04-2024 ambulatory Marbella ZAIDI Facility:[facility] Start: 01-04-2024 End: 01-04-2024 Nursing evaluation of patient and report Nurse Urol Segal Work Phone: Urology Comment on above: Urine retention (Philipp michael Dx) Start: 01-03-2024 End: 01-03-2024 ambulatory IGNACIO ZAIDI Facility:[facility] Start: 01-03-2024 Telephone encounter Marbella Zaidi PA-C Work Phone: [facility] Comment on above: Results Start: 01-03-2024 End: 01-03-2024 Patient encounter procedure Bharathi Wiggins APRN.CNP, RENE Work Phone: Urology Comment on above: Benign prostatic hyp erplasia with incomplete bladder emptying (Primary Dx); Overflow incontinence of urine; Screening for genitourinary condition; Urinary retention; Hydronephrosis, unspecified hydronephrosis type; Stage 3b chronic kidney disease (HCC) Patient left without being seen (Primary Dx) Start: 01-03-2024 End: 01-03-2024 ambulatory Marbella ZAIDI Facility:[facility] Start: 12-31-2023 Telephone encounter Navin Ackerman MD Work Phone: [facility] [place] Comment on above: Results Start: 12-31-2023 End: 12-31-2023 ambulatory Marbella IGNACIO ZAIDI Facility:[facility] Start: 12-31-2023 End: 12-31-2023 Subsequent hospital visit by physician [facility] Work Phone: Radiology Comment on above: Acute cystitis witho ut hematuria [N30.00] Start: 12-29-2023 Telephone encounter Abena hinojosa APRN.CNP Work Phone: [facility] [place] Comment on above: Results Start: 12-28-2023 End: 12-28-2023 ambulatory Marbella WATTERSIGNACIO ZAIDI Facility:[facility] Start: 12-28-2023 Encounter for other preprocedural examination ABENA BECKFORD [facility] Start: 12-27-2023 End: 12-28-2023 ambulatory Marbella ZAIDI Facility:[id number] Start: 12-27-2023 Encounter for other preprocedural examination REMY [facility] Start: 12-27-2023 Telephone encounter Marbella Zaidi PA-C Work Phone: [facility] [place] Comment on above: Forms (Surgical Kelly meghann) Start: 12-20-2023 End: 12-20-2023 [id number] Start: 12-17-2023 End: 12-17-2023 [facility]ulatory [facility] Start: 12-14-2023 End: 12-15-2023 ambulatory Marbella ZAIDI Facility:[id number] Start: 12-08-2023 End: 12-08-2023 ambulatory NORMA PODLOGAR Facility:[facility] Start: 12-01-2023 End: 12-01-2023 ambulatory GUDELIA SAMUEL Facility:[facility] Start: 10-29-2023 Telephone encounter Marbella Zaidi PA-C Work Phone: [facility] [place] Comment on above: Orders Start: 10-28-2023 End: 10-28-2023 ambulatory Marbella OLMOSON Facility:[facility] Start: 10-28-2023 End: 10-28-2023 Patient encounter procedure Marbella Zaidi PA-C Work Phone: [facility] [place] Comment on above: Primary hypertension (Primary Dx); DDD (degenerative disc disease), lumbar; Paresthesia of saddle area: Cauda equina ruled out; Post laminectomy syndrome; Intractable low back pain; MGUS (monoclonal gammopathy of unknown significance); Hypogonadism in male; Status post replacement of right shoulder joint; Status post right hip replacement; Sleeping difficulty; Polyarthropathy; Encounter for immunization; Medication management Start: 10-20-2023 End: 10-20-2023 Patient encounter procedure Gudelia Samuel MD Work Phone: [facility] Comment on above: Dislocation of hip j oint prosthesis, subsequent encounter (Primary Dx); 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, subsequent encounter; Spinal stenosis of cervical region; Spinal stenosis of lumbar region with neurogenic claudication; Myelopathy (HCC); Urinary incontinence, unspecified type Start: 10-20-2023 End: 10-20-2023 ambulatory Marbella IGNACIO ZAIDI Facility:[facility] Start: 09-28-2023 End: 09-28-2023 ambulatory Marbella OLMOSON Facility:[facility] Start: 09-28-2023 End: 09-28-2023 Patient encounter procedure Joshua Vieira APRN.CNP Work Phone: [facility] Comment on above: Urinary frequency (P rimary Dx) Start: 09-28-2023 Telephone encounter Marbella Zaidi PA-C Work Phone: [facility] [place] Comment on above: [facility] Order Needs Sign ed Start: 08-16-2023 Telephone encounter Marbella Zaidi PA-C Work Phone: [facility] [place] Comment on above: Rx for outpatient PT Start: 08-05-2023 Telephone encounter Joshua baez APRN.CNP Work Phone: [facility] Comment on above: Results Start: 07-29-2023 End: 07-29-2023 Patient encounter procedure Marbella Pierre Zaidi PA-C Work Phone: [facility] [place] Comment on above: Pain syndrome, chron ic (Primary Dx); Post laminectomy syndrome; Polyarthropathy; Sleeping difficulty; Paresthesia of saddle area: Cauda equina ruled out; Fecal smearing; Chronic constipation; S/P laminectomy; Intractable low back pain; Primary hypertension; MGUS (monoclonal gammopathy of unknown significance); Essential hypertension; S/P revision of total hip Start: 07-23-2023 Refill Marbella Ignacio Eliseo cervantes PA-C Work Phone: [facility] [place] Comment on above: Refill Request Start: 07-21-2023 End: 07-14-2024 Telephone encounter Marbella Pierre Dejuan GOEL-C Work Phone: [facility] [place] Comment on above: Orders Refill Request Start: 07-19-2023 Telephone encounter Marbella Zaidi AMANDO-C Work Phone: [facility] [place] Comment on above: Verbal needed for SN frequency order. Start: 07-16-2023 Telephone encounter Marbella Pierre Dejuan GOEL-C Work Phone: [facility] [place] Comment on above: Medication Request; verbal orders for jail Start: 07-12-2023 Telephone encounter Dany GOEL-C Work Phone: Urology Comment on above: Public Address Systems Mechanic - O ther Start: 07-09-2023 Telephone encounter Marbella Pierre Dejuan GOEL-C Work Phone: [facility] [place] Comment on above: Patient Update Start: 07-07-2023 End: 07-07-2023 Patient encounter procedure Gudelia Samuel MD Work Phone: [facility] Comment on above: Dislocation of hip j oint prosthesis, subsequent encounter (Primary Dx); 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, subsequent encounter Start: 07-06-2023 End: 07-06-2023 Subsequent hospital visit by physician Lainey [facility] (I-Stat) Work Phone: Cat Scan Comment on above: Right flank pain [R1 0.9] Start: 07-05-2023 Refill Marbella cervantes PA-C Work Phone: [facility] [place] Comment on above: Refill Request Start: 07-03-2023 Telephone encounter Marbella Zaidi AMANDO-C Work Phone: [facility] [place] Comment on above: Results Start: 07-02-2023 Telephone encounter Marbella Zaidi AMANDO-C Work Phone: [facility] [place] Comment on above: Orders Start: 07-01-2023 Telephone encounter Marbella Zaidi PA-C Work Phone: [facility] [place] Comment on above: Results Start: 06-30-2023 Telephone encounter Marbella Zaidi PA-C Work Phone: [facility] [place] Comment on above: [facility] PT POC Start: 06-29-2023 Telephone encounter Marbella Zaidi PA-C Work Phone: [facility] [place] Comment on above: Patient Update Results Start: 06-28-2023 End: 06-28-2023 Patient encounter procedure Marbella Zaidi PA-C Work Phone: [facility] [place] Comment on above: Primary hypertension (Primary Dx); MGUS (monoclonal gammopathy of unknown significance); Neurogenic claudication; S/P laminectomy; Intractable low back pain; Fecal smearing; Paresthesia of saddle area: Cauda equina ruled out; Hypogonadism in male; High serum follicle stimulating hormone (FSH); Testicular atrophy; ED (erectile dysfunction) of organic origin; S/P total right hip arthroplasty; Periprosthetic hip fracture, sequela; Sleeping difficulty; Post laminectomy syndrome; Polyarthropathy; Dysuria; Pain syndrome, chronic Start: 06-24-2023 Telephone encounter Marbella Pierre Dejuan GOEL-C Work Phone: Family Medicine [place] Comment on above: Home Health Point of Care Results Start: 05-12-2023 End: 05-12-2023 Patient encounter procedure Gudelia Samuel MD Work Phone: [facility] Comment on above: Dislocation of hip j oint prosthesis, subsequent encounter (Primary Dx); 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, subsequent encounter Start: 05-07-2023 End: 05-07-2023 ambulatory Sanjay Bhat DO Work Phone: Hematology/Oncology Comment on above: MGUS (monoclonal pily mopathy of unknown significance) (Primary Dx); Anemia, unspecified type Start: 05-07-2023 End: 05-07-2023 Patient encounter procedure Sanjay Bhat DO Work Phone: [facility] Start: 04-16-2023 Telephone encounter Sanjay ortega DO Work Phone: Hematology/Oncology Comment on above: Orders Start: 03-31-2023 End: 03-31-2023 Patient encounter procedure Gudelia Samuel MD Work Phone: [facility] Comment on above: Dislocation of hip j oint prosthesis, subsequent encounter (Primary Dx); 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, subsequent encounter Start: 03-17-2023 End: 03-17-2023 Patient encounter procedure Gudelia Samuel MD Work Phone: [facility] Comment on above: Periprosthetic fract ure of femur following total replacement of hip, subsequent encounter (Primary Dx); Dislocation of hip joint prosthesis, subsequent encounter Start: 03-12-2023 Telephone encounter Gudelia walker MD Work Phone: [facility] Comment on above: Contact Center Call Start: 03-11-2023 Telephone encounter Gudelia walker MD Work Phone: [facility] Comment on above: Future Appointment Start: 02-24-2023 End: 02-24-2023 Patient encounter procedure Gudelia Samuel MD Work Phone: [facility] Comment on above: Periprosthetic fract ure of femur following total replacement of hip, subsequent encounter (Primary Dx) Start: 02-18-2023 Orders Only Dashawn Wetzel PA-C Work Phone: Urology Start: 02-16-2023 End: 02-16-2023 Patient encounter procedure Dany Jason PAUL Work Phone: Urology Comment on above: Benign prostatic hyp erplasia with incomplete bladder emptying (Primary Dx); Overflow incontinence of urine; Dysuria Start: 02-11-2023 End: 02-11-2023 Patient encounter procedure Gracy Ghislainekathie FOOD AIDE.DIRECTOR OF TESTING Work Phone: Neurology Comment on above: Neuropathy involving both lower extremities (Primary Dx); Neuropathy associated with MGUS (HCC); Hepatitis C associated neuropathy (HCC); Spinal stenosis of lumbar region with neurogenic claudication; Chronic pain of both knees; Hip pain; Abnormality of gait; Neck pain; Numbness and tingling of both upper extremities; Cervical stenosis of spinal canal; Dizziness Start: 01-27-2023 End: 01-27-2023 Patient encounter procedure Gudelia Samuel MD Work Phone: [facility] Comment on above: Periprosthetic fract ure of femur following total replacement of hip, subsequent encounter (Primary Dx) Start: 01-20-2023 Telephone encounter Gudelia walker MD Work Phone: [facility] Comment on above: Contact Center Call Start: 01-11-2023 Refill Alysia fam FOOD AIDE.DIRECTOR OF TESTING Work Phone: [facility] Comment on above: Refill Request Start: 12-16-2022 Telephone encounter Andra Hough MD Work Phone: Endocrinology Comment on above: Results Start: 12-08-2022 ambulatory ANDRA HOUGH Facility:[facility] Start: 12-02-2022 Telephone encounter Marbella Zaidi PA-C Work Phone: [facility] [place] Comment on above: Information Start: 11-24-2022 Telephone encounter Marbella Zaidi PA-C Work Phone: [facility] [place] Comment on above: Patient Question Appointment Start: 11-19-2022 End: 11-19-2022 Patient encounter procedure Marbella Ignacio Zaidi PA-C Work Phone: [facility] [place] Comment on above: Hospital discharge f ollow-up (Primary Dx); Urinary incontinence, unspecified type; Therapeutic opioid induced constipation; S/P laminectomy; Paresthesia of saddle area: Cauda equina ruled out; Intractable back pain; MGUS (monoclonal gammopathy of unknown significance); Hypogonadism in male; High serum follicle stimulating hormone (FSH) Start: 11-16-2022 ambulatory Joya Carpenter RN NURS E MANAGER RENTAL Comment on above: Information Start: 11-14-2022 End: 11-16-2022 ambulatory MARII Tyson STEVIE Facility:[facility] Start: 11-12-2022 Telephone encounter Deann sigala MD Work Phone: [facility] Comment on above: Hospital To Hospital Start: 11-11-2022 End: 11-14-2022 Evaluation and management of inpatient Marbella ZAIDI Facility:[facility] Start: 11-05-2022 Telephone encounter Andra Hough MD Work Phone: Endocrinology Comment on above: Results Start: 11-03-2022 Telephone encounter Abena hinojosa APRN.DIRECTOR OF TESTING Work Phone: Family Medicine [place] Comment on above: Results Start: 11-02-2022 End: 11-02-2022 Subsequent hospital visit by physician Dhruv [facility] [place] Work Phone: Radiology Comment on above: Closed fracture of m ultiple ribs of left side with routine healing, subsequent encounter [S22.42XD] Start: 11-02-2022 End: 11-02-2022 Office outpatient visit 25 minutes Abena Beckford APRN.DIRECTOR OF TESTING Work Phone: [facility] [place] Comment on above: Closed fracture of m ultiple ribs of left side with routine healing, subsequent encounter (Primary Dx) Start: 09-27-2022 Telephone encounter Marbella Zaidi PA-C Work Phone: Family Medicine [place] Comment on above: Results Start: 09-16-2022 Telephone encounter Marbella Zaidi PA-C Work Phone: [facility] Comment on above: Results - Mri Start: 09-11-2022 Telephone encounter Marbella Ignacio Zaidi PA-C Work Phone: [facility] Comment on above: Orders Start: 09-10-2022 End: 09-10-2022 Patient encounter procedure Marbella Ignacio Zaidi PA-C Work Phone: [facility] Comment on above: Essential hypertensi on (Primary Dx); MGUS (monoclonal gammopathy of unknown significance); Neurogenic claudication (HCC); S/P laminectomy; Status post replacement of right shoulder joint; Status post hip replacement, unspecified laterality; Obesity, Class I, BMI 30-34.9; Chronic hepatitis C without hepatic coma (HCC); Hypogonadism in male Start: 08-28-2022 End: 08-28-2022 Subsequent hospital visit by physician Mri Radio [facility] (I-Stat/1.5t) Work Phone: Radiology Comment on above: Spinal stenosis of c ervical region [M48.02] Start: 08-10-2022 End: 08-10-2022 Patient encounter procedure Brock Portillo MD Work Phone: [facility] Comment on above: Cervical spondylosis with myelopathy (Primary Dx); Spinal stenosis of cervical region Start: 08-03-2022 Refill Marbella cervantes PA-C Work Phone: [facility] Comment on above: Refill Request Start: 07-04-2022 Telephone encounter Marbella Ignacio Zaidi PA-C Work Phone: [facility] Comment on above: Results Start: 07-01-2022 End: 07-01-2022 Subsequent hospital visit by physician Mri Radio [facility] (I-Stat/1.5t) Work Phone: Radiology Comment on above: Chronic vertigo [R42 ] Start: 06-18-2022 End: 06-18-2022 Patient encounter procedure Gracy Sears APRN.CNP Work Phone: Neurology Comment on above: Neuropathy associate d with MGUS (HCC) (Primary Dx); Hepatitis C associated neuropathy (HCC); Spinal stenosis of lumbar region with neurogenic claudication; Chronic pain of both knees; Hip pain; Abnormality of gait; Neck pain; Numbness and tingling of both upper extremities; Dizziness; Cervical stenosis of spinal canal Start: 06-10-2022 Telephone encounter Marbella Ignacio Dejuan OLEAC Work Phone: [facility] [place] Comment on above: Orders (MRI) Start: 05-29-2022 Refill Brock Portillo MD Work Phone: Neurology Comment on above: Refill Request Start: 05-22-2022 Refill Marbella Ignacio GOEL-C Work Phone: [facility] [place] Comment on above: Refill Request Start: 05-12-2022 End: 05-12-2022 Patient encounter procedure Marbella Ignacio Dejuan GOEL-Coleen Work Phone: [facility] [place] Comment on above: Essential hypertensi on (Primary Dx); DDD (degenerative disc disease), lumbar; S/P laminectomy; Neurogenic claudication (HCC); Numbness and tingling of foot; MGUS (monoclonal gammopathy of unknown significance); Impaired fasting blood sugar; Vertigo Start: 05-07-2022 End: 05-07-2022 ambulatory Sanjay Bhat DO Work Phone: Hematology/Oncology Comment on above: MGUS (monoclonal pily mopathy of unknown significance) (Primary Dx) Start: 05-07-2022 End: 05-07-2022 Patient encounter procedure Sanjay Bhat DO Work Phone: [facility] Start: 05-06-2022 Telephone encounter Navin Ackerman MD Work Phone: [facility] [place] Comment on above: Results Start: 05-04-2022 Orders Only Sanjay Quinn Work Phone: Hematology/Oncology Comment on above: MGUS (monoclonal pily mopathy of unknown significance) (Primary Dx) Start: 04-16-2022 End: 04-16-2022 ambulatory STEVE JO Facility:[facility] Start: 04-16-2022 End: 04-16-2022 Patient encounter procedure Mayra Gale PA-C Work Phone: Neurosurgery Comment on above: Spinal stenosis, lum bar region with neurogenic claudication (Primary Dx) Start: 04-14-2022 Telephone encounter Navin Ackerman MD Work Phone: Family [facility] [place] Comment on above: Occupational Therapy Plan of Care; Social Work orders Start: 04-09-2022 End: 04-09-2022 Subsequent hospital visit by physician Dhruv [facility] [place]arate Work Phone: Radiology Comment on above: Neck pain [M54.2] Start: 04-07-2022 Telephone encounter Navin Ackerman MD Work Phone: [facility] [place] Comment on above: Skillled Nursing Onesimo n of Care; FYI-No Action Needed Start: 04-06-2022 ambulatory Yudy fam RN Work Phone: [employer] Start: 04-06-20[address] Brock lane MD Work Phone: [facility] Comment on above: Appointment Refill Request Transition Of Care ( Hospital DC 04/04/22, initial outreach) Start: 04-01-2022 Telephone encounter Navin Ackerman MD Work Phone: [facility] [place] Comment on above: [facility] (verbal orders to follow) Start: 03-29-2022 End: 04-04-2022 Evaluation and management of inpatient BROCK PORTILLO Facility:[facility] Start: 03-27-2022 Refill Navin Ackerman MD Work Phone: 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); Hepatitis C associated neuropathy (HCC); Spinal stenosis of lumbar region with neurogenic claudication; Chronic pain of both knees; Hip pain; Abnormality of gait; Neck pain; Numbness and tingling of both upper extremities Start: 03-17-2022 ambulatory Navin Ackerman MD Work Phone: [facility] [place] Start: 03-02-2022 Refill Navin Ackerman MD Work Phone: Family Medicine [place] Comment on above: Prescription Refills Start: 02-26-2022 ambulatory [facility] Comment on above: Population Health Na vigation Outreach ([employer] care gaps) Start: 02-23-2022 End: 02-23-2022 Admission to establishment [facility] [place] 1 Work Phone: [facility] Start: 02-23-2022 End: 02-23-2022 ambulatory [facility] [place] [facility] Work Phone: Pre Anesthesia Comment on above: Pre-op testing; Chronic hepatitis C without hepatic coma (HCC); Primary hypertension; MGUS (monoclonal gammopathy of unknown significance); Status post hip replacement, unspecified laterality; Status post replacement of right shoulder joint; Sleeping difficulty; Former smoker Start: 02-23-2022 End: 02-23-2022 Patient encounter status [facility]acc [place] 1 Work Phone: Pre Anesthesia Start: 02-18-2022 Refill Gracy maravilla APRN.DIRECTOR OF TESTING Work Phone: Neurology Comment on above: Refill Request Start: 12-29-2021 End: 12-29-2021 Patient encounter procedure Brock Portillo MD Work Phone: [facility] Comment on above: Spinal stenosis of l umbar region with neurogenic claudication; Abnormality of gait Start: 12-23-2021 End: 12-23-2021 ambulatory UNKNOWN PROVIDER Facility:[facility] Start: 12-22-2021 ambulatory Sanjay Young MD Work Phone: Neurology Start: 12-22-2021 Patient encounter procedure Sanjay Young MD Work Phone: [facility] Start: 09-30-2021 End: 09-30-2021 Subsequent hospital visit by physician Xr [facility] Work Phone: Radiology Comment on above: Pain in joint, multi ple sites [M25.50] Start: 07-04-2021 End: 07-04-2021 Subsequent hospital visit by physician Xr [facility] [place] Work Phone: Radiology Comment on above: Hip pain [M25.559] Start: 12-13-2020 End: 12-13-2020 Subsequent hospital visit by physician Xr [facility] [place] Work Phone: Radiology Comment on above: DDD (degenerative di sc disease), lumbar [M51.36] Start: 02-02-2019 Patient encounter procedure BLAS AUGUSTINE Facility:A Procedures Date Procedure Procedure Detail Performing Clinician Start: 02-09-2024 Us transrct prstate vol brachytx plnning spx Dennis Moore MD Work Phone: Start: 01-03-2024 Urnls dip stick/tabl et rgnt auto w/o microscopy Bharathi Wiggins FOOD AIDE.DIRECTOR OF TESTING, DNP Work Phone: Start: 12-31-2023 Us retroperitoneal r eal time w/image complete Abena Beckford FOOD AIDE.DIRECTOR OF TESTING Work Phone: Start: 10-28-2023 INFLUENZA VACCINE, P RSV FREE, AGE 65+ YR, HIGH DOSE, QUADRIVALENT (FLUZONE HIGH-DOSE) Marbella Zaidi PA-C Work Phone: Start: 07-06-2023 Ct abdomen & pelvis w/o contrast material Marbella Zaidi PA-C Work Phone: Start: 06-28-2023 Urnls dip stick/tabl et rgnt auto w/o microscopy Marbella Zaidi PA-C Work Phone: Start: 06-28-2023 Culture bacterial quanttative colony count urine M Ignacio Zaidi PA-C Work Phone: Start: 06-28-2023 Drug tst prsmv instr mnt chem analyzers pr date M Ignacio Zaidi PA-C Work Phone: Start: 02-16-2023 Urnls dip stick/tabl et rgnt auto w/o microscopy Dany Gomez PA-C Work Phone: Start: 01-08-2023 Lipid 1996 panel - S amilcar or Plasma Joshua Vieira FOOD AIDE.DIRECTOR OF TESTING Work Phone: Start: 11-02-2022 Radex ribs uni w/posteroant ch minimum 3 views Abena Beckford FOOD AIDE.DIRECTOR OF TESTING Work Phone: Start: 08-28-2022 Mri spinal canal cer vical w/o contrast matrl Brock Portillo MD Work Phone: Start: 07-01-2022 Mri brain brain stem w/o w/contrast material Marbella Ignacio Zaidi PA-C Work Phone: Start: 04-09-2022 Radex spine cervical 4 or 5 views Gracy Sears FOOD AIDE.DIRECTOR OF TESTING Work Phone: Start: 03-31-2022 Antibody screen BROCK PORTILLO Comment on above: Order Comment: Speci men Type: BLOOD SPECIMENOrdering Facility: [facility] Address: [address] [place] [address] Performed By: #### T SCR ####[facility] [id number] [address] [place] Start: 12-29-2021 Adult depression scr eening assessment Gracy Sears FOOD AIDE.DIRECTOR OF TESTING Work Phone: Start: 09-30-2021 Radex hand minimum 3 views Daylin Rock MD Work Phone: Start: 07-04-2021 Radex hips bilateral with pelvis minimum 5 views Navin Singh MD Work Phone: Start: 12-13-2020 Radex spine lumbosac ral 2/3 views Navin Ackerman MD Work Phone: Start: 06-27-2013 Kimberlyn Jacobson APRN.CNP Work Phone: H/O: artificial joint Status pos t replacement of right shoulder joint [facility] [place] [facility] Work Phone: Plan of Treatment Date Care Activity Detail Author Start: 01-08-2028 Lipid 1996 panel - Serum or Plasma Lipid Screening [facility] Start: 01-08-2028 Lipid panel Lipid Screening [facility] Start: 01-08-2028 LIPID SCREEN LIPID SCREEN [facility] Start: 07-26-2027 Diabetes Screening Diabetes Screening [facility] Start: 07-10-2027 Diabetes Screening Diabetes Screening [facility] Start: 03-13-2027 Diabetes Screening Diabetes Screening [facility] Start: 01-30-2027 Diabetes Screening Diabetes Screening [facility] Start: 12-28-2026 Diabetes Screening Diabetes Screening [facility] Start: 12-27-2026 Diabetes Screening Diabetes Screening [facility] Start: 06-28-2026 DIABETES SCREEN DIABETES SCREEN [facility] Start: 06-28-2026 Diabetes Screening Diabetes Screening [facility] Start: 04-30-2026 DIABETES SCREEN DIABETES SCREEN [facility] Start: 04-05-2026 DIABETES SCREEN DIABETES SCREEN [facility] Start: 03-31-2026 DIABETES SCREEN DIABETES SCREEN [facility] Start: 01-14-2026 DIABETES SCREEN DIABETES SCREEN [facility] Start: 01-11-2026 DIABETES SCREEN DIABETES SCREEN [facility] Start: 11-15-2025 DIABETES SCREEN DIABETES SCREEN [facility] Start: 11-11-2025 DIABETES SCREEN DIABETES SCREEN [facility] Start: 09-06-2025 BP Controlled (<130/80) BP Controlled (<130/80) [facility] Start: 08-30-2025 BP Controlled (<130/80) BP Controlled (<130/80) [facility] Start: 08-24-2025 BP Controlled (<130/80) BP Controlled (<130/80) [facility] Start: 08-23-2025 BP Controlled (<130/80) BP Controlled (<130/80) [facility] Start: 08-22-2025 BP Controlled (<130/80) BP Controlled (<130/80) [facility] Start: 08-16-2025 BP Controlled (<130/80) BP Controlled (<130/80) [facility] Start: 08-15-2025 BP Controlled (<130/80) BP Controlled (<130/80) [facility] Start: 08-11-2025 BP Controlled (<130/80) BP Controlled (<130/80) [facility] Start: 08-08-2025 BP Controlled (<130/80) BP Controlled (<130/80) [facility] Start: 08-07-2025 BP Controlled (<130/80) BP Controlled (<130/80) [facility] Start: 08-04-2025 BP Controlled (<130/80) BP Controlled (<130/80) [facility] Start: 08-01-2025 BP Controlled (<130/80) BP Controlled (<130/80) [facility] Start: 07-31-2025 BP Controlled (<130/80) BP Controlled (<130/80) [facility] Start: 07-29-2025 BP Controlled (<130/80) BP Controlled (<130/80) [facility] Start: 07-28-2025 BP Controlled (<130/80) BP Controlled (<130/80) [facility] Start: 07-26-2025 Complete blood count Hemoglobin/Hematocrit [facility] Start: 07-26-2025 Creatinine measurement Serum Creatinine [facility] Start: 07-10-2025 Annual PCP Team Chronic Disease Visit Annual PCP Team Chronic Disease Visit [facility] Start: 07-10-2025 BP Controlled (<130/80) BP Controlled (<130/80) [facility] Start: 07-10-2025 Complete blood count Hemoglobin/Hematocrit [facility] Start: 07-10-2025 Creatinine measurement Serum Creatinine [facility] Start: 05-05-2025 DIABETES SCREEN DIABETES SCREEN [facility] Start: 04-10-2025 Annual PCP Team Chronic Disease Visit Annual PCP Team Chronic Disease Visit [facility] Start: 04-10-2025 BP Controlled (<130/80) BP Controlled (<130/80) [facility] Start: 03-29-2025 DIABETES SCREEN DIABETES SCREEN [facility] Start: 03-22-2025 DIABETES SCREEN DIABETES SCREEN [facility] Start: 03-13-2025 BP Controlled (<130/80) BP Controlled (<130/80) [facility] Start: 03-13-2025 Creatinine measurement Serum Creatinine [facility] Start: 02-23-2025 DIABETES SCREEN DIABETES SCREEN [facility] Start: 02-08-2025 BP Controlled (<130/80) BP Controlled (<130/80) [facility] Start: 02-02-2025 Annual PCP Team Chronic Disease Visit Annual PCP Team Chronic Disease Visit [facility] Start: 02-02-2025 BP Controlled (<130/80) BP Controlled (<130/80) [facility] Start: 01-30-2025 BP Controlled (<130/80) BP Controlled (<130/80) [facility] Start: 01-30-2025 Complete blood count Hemoglobin/Hematocrit [facility] Start: 01-30-2025 Creatinine measurement Serum Creatinine [facility] Start: 01-03-2025 Annual PCP Team Chronic Disease Visit Annual PCP Team Chronic Disease Visit [facility] Start: 01-03-2025 Screening for malignant neoplasm of colon Fecal Occult Blood [facility] Start: 12-28-2024 Annual PCP Team Chronic Disease Visit Annual PCP Team Chronic Disease Visit [facility] Start: 12-28-2024 Complete blood count Hemoglobin/Hematocrit [facility] Start: 12-28-2024 Creatinine measurement Serum Creatinine [facility] Start: 12-08-2024 Annual PCP Team Chronic Disease Visit Annual PCP Team Chronic Disease Visit [facility] Start: 11-04-2024 DIABETES SCREEN DIABETES SCREEN [facility] Start: 10-28-2024 Annual PCP Team Chronic Disease Visit Annual PCP Team Chronic Disease Visit [facility] Start: 10-28-2024 BP Controlled (<130/80) BP Controlled (<130/80) [facility] Start: 10-28-2024 Covid-19 Vaccine (#1) Covid-19 Vaccine (#1) [facility] Comment on above: Postponed from 03/06/1951 (Declined at t his time) Postponed from 09/05 (Declined at this time) Start: 10-28-2024 Covid-19 Vaccine () Covid-19 Vaccine () [facility] Comment on above: Postponed from 07/23/2023 (Declined at t his time) Start: 10-28-2024 Shingrix Vaccine (1 of 2) Shingrix Vaccine (1 of 2) [facility] Comment on above: Postponed from 1999 (Insurance Cov erage) Postponed from 09/05 (Insurance Coverage) Start: 10-28-2024 Urine microalbumin profile DTaP,Tdap,Td Vaccine (1 - Tdap) [facility] Comment on above: Postponed from 1968 (Insurance Cov erage) Start: 10-09-2024 End: 10-09-2024 Patient encounter procedure [facility] [place] Comment on above: 3 month follow up (GB patient) 3 month follow up Start: 09-28-2024 BP Controlled (<130/80) BP Controlled (<130/80) [facility] Start: 09-19-2024 End: 09-19-2024 Patient encounter procedure 09/19/2024 3:30 PM EDT Office Visit Urology [address] [place], [place] [id number] Dany Gomez PA-C [address] [place] [address] pvr, cath removed in am Urology Comment on above: pvr, cath removed in am Start: 09-19-2024 End: 09-19-2024 ambulatory [facility] Comment on above: Age-related physical debility [R54] $40 Age-related phys ical debility [R54] Start: 09-19-2024 End: 09-19-2024 Nursing evaluation of patient and report 09/19/2024 8:40 AM EDT Nurse Visit Urology [address] [place], [place] [id number] Wstr, Nurse Urol [facility] [address] [place], [place] [phone] cath removal, per [facility] Comment on above: cath removal, per [facility] Start: 09-14-2024 End: 09-14-2024 Patient encounter procedure 09/14/2024 1:45 PM EDT Office Visit Urology [address] [place] [address] Ar Akins MD [address] [place] [address] discuss aqua ablation Urology Comment on above: discuss aqua ablation Start: 09-11-2024 End: 09-11-2024 Patient encounter procedure [facility] Comment on above: Uroflow, Aquablation postop PVR - Uroflow, Aquab lation postop Start: 2024 RSV Vaccine (1 - 1-dose 75+ series) RSV Vaccine (1 - 1-dose 75+ series) [facility] Start: 08-22-2024 End: 08-22-2024 Patient encounter procedure 08/22/2024 2:00 PM EDT Office Visit Urology [address] [place], [place] [phone] Dany Gomez PA-C [address] [place] [address] Uroflow, 2 week pvr Urology Comment on above: Uroflow, 2 week pvr Start: 08-15-2024 End: 08-15-2024 Nursing evaluation of patient and report 08/15/2024 3:40 PM EDT Nurse Visit Urology [address] [place], [place] [id number] Wstr, Nurse Urol [facility] [address] [facility] [place] [address] hancock catheter change Urology Comment on above: hancock catheter change Start: 08-15-2024 End: 08-15-2024 Patient encounter procedure 08/15/2024 9:30 AM EDT Office Visit [facility] [address] [place] [place] [phone] Smitha Gutierrez APRN.DIRECTOR OF TESTING [address] [place] [address] Uroflow, 2 week pvr [facility] Comment on above: Uroflow, 2 week pvr Start: 08-03-2024 BP Controlled (<130/80) BP Controlled (<130/80) [facility] Start: 07-31-2024 End: 07-31-2024 Nursing evaluation of patient and report [facility] Comment on above: cath removal pvr, cath removed in am Start: 07-29-2024 ANNUAL PCP TEAM CHRONIC DISEASE VISIT ANNUAL PCP TEAM CHRONIC DISEASE VISIT [facility] Start: 07-29-2024 BP CONTROLLED (<130/80) BP CONTROLLED (<130/80) [facility] Start: 07-25-2024 End: 07-25-2024 Admission to same day surgery center 07/25/2024 2:00 PM EDT - 07/25/2024 4:00 PM EDT Surgery [facility] [address] [place] [place] [address] Vicente Quintana MD [address] [place] [phone] TRANSURETHRAL WATERJET ABLATION OF PROSTATE INCLUDING CONTROL OF POST OPERATIVE BLEEDING INCLUDING US GUIDANCE,COMPLETE (VASECTOMY,MEATOTOMY,CYST OURETHROSCOPY,UTRETHRAL CALIBARATION AND/OR DILATIO [facility] Comment on above: TRANSURETHRAL WATERJET ABLATION OF PROST ATE INCLUDING CONTROL OF POST OPERATIVE BLEEDING INCLUDING US GUIDANCE,COMPLETE (VASECTOMY,MEATOTOMY,CYSTOURETHROSCOPY,UTRETHRAL CALIBARATION AND/OR DILATIO Start: 07-25-2024 End: 07-25-2024 Cystourethroscopy CYSTOSCOPY BPH with obstruction/lower urinary tract symptoms Urinary retention 07/25/2024 2:00 PM EDT [facility] Start: 07-25-2024 End: 07-25-2024 Insj temp ndwellg bladder catheter simple INSERTION OF TEMPORARY INDWELLING BLADDER CATHETER; SIMPLE BPH with obstruction/lower urinary tract symptoms Urinary retention 07/25/2024 2:00 PM EDT [facility] Start: 07-25-2024 Subsequent hospital visit by physician 07/25/2024 2:00 PM EDT Hospital Encounter [facility] [place] [address] [facility] [address] Vicente Quintana MD [address] [place] [phone] BPH with obstruction/lower urinary tract symptoms [N40.1, N13.8] [facility] Comment on above: BPH with obstruction/lower urinary tract symptoms [N40.1, N13.8] Start: 07-25-2024 End: 07-25-2024 Transurethral waterjet ablation prostate compl TRANSURETHRAL WATERJET ABLATION OF PROSTATE INCLUDING CONTROL OF POST OPERATIVE BLEEDING INCLUDING US GUIDANCE,COMPLETE (VASECTOMY,MEATOTOMY,CYST OURETHROSCOPY,UTRETHRAL CALIBARATION AND/OR DILATIO BPH with obstruction/lower urinary tract symptoms Urinary retention 07/25/2024 2:00 PM EDT [facility] Start: 07-23-2024 [facility] Start: 07-12-2024 End: 10-11-2024 [id number] [Mass/volume] in Serum or Plasma B2 MICROGLOBULIN Lab Routine MGUS (monoclonal gammopathy of unknown significance) Waldenstrom macroglobulinemia (HCC) Expected: 07/12/2024, Expires: 10/11/2024 [facility] Comment on above: Expected: 07/12/2024, Expires: Start: 07-12-2024 End: 10-11-2024 CBC W Auto Differential panel - Blood COMPLETE BLOOD COUNT AND DIFFERENTIAL Lab Routine MGUS (monoclonal gammopathy of unknown significance) Waldenstrom macroglobulinemia (HCC) Expected: 07/12/2024, Expires: 10/11/2024 [facility] Comment on above: Expected: 07/12/2024, Expires: 4 Start: 07-12-2024 End: 10-11-2024 Comprehensive metabolic 2000 panel - Serum or Plasma COMPREHENSIVE METABOLIC PANEL Lab Routine MGUS (monoclonal gammopathy of unknown significance) Waldenstrom macroglobulinemia (HCC) Expected: 07/12/2024, Expires: 10/11/2024 [facility] Comment on above: Expected: 07/12/2024, Expires: 4 Start: 07-12-2024 End: 10-11-2024 FREE LIGHT CHAINS, QUANTITATIVE, URINE FREE LIGHT CHAINS, QUANTITATIVE, URINE Lab Routine MGUS (monoclonal gammopathy of unknown significance) Waldenstrom macroglobulinemia (HCC) Expected: 07/12/2024, Expires: 10/11/2024 [facility] Comment on above: Expected: 07/12/2024, Expires: Start: 07-12-2024 End: 10-11-2024 IMMUNOGLOBULINS,IGG,IGA,IG M IMMUNOGLOBULINS,IGG,IGA,I GM Lab Routine MGUS (monoclonal gammopathy of unknown significance) Waldenstrom macroglobulinemia (HCC) Expected: 07/12/2024, Expires: 10/11/2024 [facility] Comment on above: Expected: 07/12/2024, Expires: Start: 07-12-2024 End: 10-11-2024 Lactate dehydrogenase [Enzymatic activity/volume] in Serum or Plasma LACTATE DEHYDROGENASE Lab Routine MGUS (monoclonal gammopathy of unknown significance) Waldenstrom macroglobulinemia (HCC) Expected: 07/12/2024, Expires: 10/11/2024 [facility] Comment on above: Expected: 07/12/2024, Expires: Start: 07-12-2024 End: 10-11-2024 MONOCLONAL PROTEIN, SERUM (BLOOD) MONOCLONAL PROTEIN, SERUM (BLOOD) Lab Routine MGUS (monoclonal gammopathy of unknown significance) Waldenstrom macroglobulinemia (HCC) Expected: 07/12/2024, Expires: 10/11/2024 [facility] Comment on above: Expected: 07/12/2024, Expires: 4 Start: 07-12-2024 End: 10-11-2024 PROTEIN ELECTROPHORESIS SERUM W/INTERP PROTEIN ELECTROPHORESIS SERUM W/INTERP Lab Routine MGUS (monoclonal gammopathy of unknown significance) Waldenstrom macroglobulinemia (HCC) Expected: 07/12/2024, Expires: 10/11/2024 [facility] Comment on above: Expected: 07/12/2024, Expires: Start: 07-10-2024 End: 07-10-[address] [facility] Дмитрий Comment on above: 3 month follow up Start: 07-10-2024 End: 07-10-2024 Patient encounter procedure [facility] Comment on above: discuss aqua ablation cysto trus, pt has c ath - Uroflow - Keflex Start: 07-04-2024 End: 07-04-2024 Nursing evaluation of patient and report 07/04/2024 1:40 PM EDT Nurse Visit Urology [address] [place] [address] Wstr, Nurse Urol [facility] [address] [place] [address] hancock catheter change Urology Comment on above: hancock catheter change Start: 06-28-2024 ANNUAL PCP TEAM CHRONIC DISEASE VISIT ANNUAL PCP TEAM CHRONIC DISEASE VISIT [facility] Start: 05-23-2024 End: 05-23-2024 Nursing evaluation of patient and report 05/23/2024 1:40 PM EDT Nurse Visit Urology [address] [place] [address] Wstr, Nurse Urol [facility] [address] [place] [address] Hancock catheter change- [facility] Comment on above: Hancock catheter change- 20 [facility] Start: 05-08-2024 End: 05-08-2024 Patient encounter procedure 05/08/2024 2:40 PM EDT Office Visit [facility] Дмитрий [address] [place] [address] Marbella Zaidi PA-C [address] [facility] [place] [address] [facility] Дмитрий Comment on above: 3 month follow up Start: 05-07-2024 BP CONTROLLED (<130/80) BP CONTROLLED (<130/80) [facility] in Start: 05-05-2024 End: 08-04-2024 CBC W Auto Differential panel - Blood CBC + DIFF Lab Routine Acute renal failure superimposed on stage 3a chronic kidney disease, unspecified acute renal failure type (HCC) Frailty Expected: 05/05/2024, Expires: 08/04/2024 [facility] Work Phone: Comment on above: Expected: 05/05/2024, Expires: Start: 05-05-2024 End: 08-04-2024 Comprehensive metabolic 2000 panel - Serum or Plasma COMP METABOLIC PANEL Lab Routine Acute renal failure superimposed on stage 3a chronic kidney disease, unspecified acute renal failure type (HCC) Frailty Expected: 05/05/2024, Expires: 08/04/2024 [facility] Work Phone: Comment on above: Expected: 05/05/2024, Expires: Start: 05-01-2024 End: 05-01-2024 Patient encounter procedure Urology Comment on above: PATIENT HAS HANCOCK NEEDS SEEN FOR [facility] 02/20 NEEDS ORDER FOR REFRIGERATION SERVICE INSPECTOR TO CHANGE AT HOME PATIENT HAS [place]ANCOCK NE EDS SEEN FOR [facility] 03/10/2024 NEEDS ORDER FOR REFRIGERATION SERVICE INSPECTOR TO CHANGE AT HOME. ALSO ISSUES WITH SEDIMENT AND HANCOCK PLUGGING UP Start: 04-28-2024 End: 04-28-2024 Patient encounter procedure 04/28/2024 3:30 PM EDT Office Visit [facility] Surgery [address] [place], [place] [phone] Dizziness [R42] [facility] Comment on above: Dizziness [R42] Start: 04-19-2024 End: 04-19-2024 Patient encounter procedure 04/19/2024 10:40 AM EDT Office Visit Urology [address] [address] Saskia Sears, FOOD AIDE.DIRECTOR OF TESTING [address] [place] [address] PROBLEM WITH HANCOCK PLUGGING. ALSO NEEDING HH ORDERS. SEE TELEPHONE ENCOUNTER Urology Comment on above: PROBLEM WITH HANCOCK PLUGGING. ALSO NEEDIN G HH ORDERS. SEE TELEPHONE ENCOUNTER Start: 04-10-2024 End: 04-10-2024 Patient encounter procedure 04/10/2024 2:00 PM EDT Office Visit Family [facility] [place] [address] [place], [place] [phone] Marbella Zaidi PA-C [address] [facility] [place] [address] Hosptital follow up Family Medicine Дмитрий Comment on above: Hosptital follow up Start: 04-04-2024 End: 07-04-2024 Bacteria identified in Urine by Culture URINE CULTURE Microbiology Routine Abnormal urine Expected: 04/04/2024, Expires: 07/04/2024 [facility] Work Phone: Comment on above: Expected: 04/04/2024, Expires: Start: 04-04-2024 End: 07-04-2024 URINALYSIS, REFLEX MICROSCOPIC URINALYSIS, REFLEX MICROSCOPIC Lab Routine Abnormal urine Expected: 04/04/2024, Expires: 07/04/2024 [facility] Comment on above: Expected: 04/04/2024, Expires: Start: 03-13-2024 End: 06-12-2024 ACETYLCHOLINE RECEPTOR MODULATING ANTIBODY [facility] Work Phone: Comment on above: Expected: 03/13/2024, Expires: Start: 02-12-2024 BP CONTROLLED (<130/80) BP CONTROLLED (<130/80) [facility] Start: 01-28-2024 End: 04-28-2024 Comprehensive metabolic 2000 panel - Serum or Plasma COMP METABOLIC PANEL Lab Routine Hypogonadism in male Primary hypertension Expected: 01/28/2024, Expires: 04/28/2024 [facility] Work Phone: Comment on above: Expected: 01/28/2024, Expires: Start: 01-04-2024 End: 04-04-2024 Basic metabolic 2000 panel - Serum or Plasma BASIC METABOLIC PNL Lab Routine Hydronephrosis, unspecified hydronephrosis type Urinary retention MUNA (acute kidney injury) (HCC) Expected: 01/04/2024, Expires: 04/04/2024 [facility] Work Phone: Comment on above: Expected: 01/04/2024, Expires: Start: 01-04-2024 End: 04-04-2024 CBC W Auto Differential panel - Blood CBC + DIFF Lab Routine Hydronephrosis, unspecified hydronephrosis type Urinary retention MUNA (acute kidney injury) (HCC) Expected: 01/04/2024, Expires: 04/04/2024 [facility] Work Phone: Comment on above: Expected: 01/04/2024, Expires: Start: 01-04-2024 Screening for malignant neoplasm of colon Colorectal Cancer Screening [facility] Start: 12-31-2023 End: 03-31-2024 Basic metabolic 2000 panel - Serum or Plasma BASIC METABOLIC PNL Lab Routine Urinary retention Hydronephrosis, unspecified hydronephrosis type Expected: 12/31/2023, Expires: 03/31/2024 [facility] Work Phone: Comment on above: Expected: 12/31/2023, Expires: Start: 11-22-2023 Advance Directive Discussion Advance Directive Discussion [facility] Start: 11-22-2023 Behavioral Health Screening Behavioral Health Screening [facility] Start: 11-22-2023 Depression Assessment Depression Assessment [facility] Start: 11-19-2023 ANNUAL PCP TEAM CHRONIC DISEASE VISIT ANNUAL PCP TEAM CHRONIC DISEASE VISIT [facility] Start: 11-02-2023 ANNUAL PCP TEAM CHRONIC DISEASE VISIT ANNUAL PCP TEAM CHRONIC DISEASE VISIT [facility] Start: 10-29-2023 End: 01-28-2024 CBC W Auto Differential panel - Blood CBC + DIFF Lab Routine Primary hypertension Medication management Expected: 10/29/2023, Expires: 01/28/2024 [facility] Work Phone: Comment on above: Expected: 10/29/2023, Expires: Start: 10-29-2023 End: 01-28-2024 Estradiol (E2) [Mass/volume] in Serum or Plasma ESTRADIOL-17B BLD Lab Routine Hypogonadism in male Medication management Expected: 10/29/2023, Expires: 01/28/2024 [facility] Work Phone: Comment on above: Expected: 10/29/2023, Expires: 4 Start: 10-29-2023 End: 01-28-2024 Follitropin [Units/volume] in Serum or Plasma FSH BLD Lab Routine Hypogonadism in male Medication management Expected: 10/29/2023, Expires: 01/28/2024 [facility] Work Phone: Comment on above: Expected: 10/29/2023, Expires: 4 Start: 10-29-2023 End: 01-28-2024 TESTOSTERONE, FREE AND TOTAL TESTOSTERONE, FREE AND TOTAL Lab Routine Hypogonadism in male Expected: 10/29/2023, Expires: 01/28/2024 [facility] Work Phone: Comment on above: Expected: 10/29/2023, Expires: 4 Start: 09-10-2023 ANNUAL PCP TEAM CHRONIC DISEASE VISIT ANNUAL PCP TEAM CHRONIC DISEASE VISIT [facility] Start: 09-10-2023 COVID-19 VACCINE (#1) COVID-19 VACCINE (#1) [facility] Comment on above: Postponed from 03/06/1951 (Declined at t his time) Start: 07-23-2023 Influenza vaccination [facility] Start: 06-28-2023 End: 08-28-2023 PAIN PANEL, UR QUANT [facility] Work Phone: Comment on above: Expected: 06/28/2023, Expires: 3 Start: 06-27-2023 Colonoscopy COLONOSCOPY [facility] Start: 06-27-2023 COLORECTAL CANCER SCREENING COLORECTAL CANCER SCREENING [facility] Start: 06-27-2023 Screening for malignant neoplasm of colon [facility] Start: 06-09-2023 ANNUAL PCP TEAM CHRONIC DISEASE VISIT ANNUAL PCP TEAM CHRONIC DISEASE VISIT [facility] Start: 06-09-2023 SHINGRIX VACCINE (1 of 2) SHINGRIX VACCINE (1 of 2) [facility] Comment on above: Postponed from 1999 (Insurance Cov erage) Start: 06-09-2023 Urine microalbumin profile DTAP,TDAP,TD (1 - Tdap) [facility] Comment on above: Postponed from 1968 (Insurance Cov erage) Start: 05-21-2023 Influenza vaccination INFLUENZA (#1) [facility] Comment on above: Postponed from 07/23/2022 (Declined at t his time) Start: 05-12-2023 ANNUAL PCP TEAM CHRONIC DISEASE VISIT ANNUAL PCP TEAM CHRONIC DISEASE VISIT [facility] Start: 05-12-2023 BP CONTROLLED (<130/80) BP CONTROLLED (<130/80) [facility] in Start: 05-07-2023 End: 07-07-2023 CBC W Auto Differential panel - Blood CBC + DIFF Lab Routine Anemia, unspecified type Expected: 05/07/2023, Expires: 07/07/2023 [facility] Work Phone: Comment on above: Expected: 05/07/2023, Expires: 3 Start: 05-07-2023 End: 07-07-2023 Ferritin [Mass/volume] in Serum or Plasma FERRITIN BLD Lab Routine Anemia, unspecified type Expected: 05/07/2023, Expires: 07/07/2023 [facility] Work Phone: Comment on above: Expected: 05/07/2023, Expires: 3 Start: 05-07-2023 End: 07-07-2023 Iron and Iron binding capacity panel - Serum or Plasma IRON + TIBC Lab Routine Anemia, unspecified type Expected: 05/07/2023, Expires: 07/07/2023 [facility] Work Phone: Comment on above: Expected: 05/07/2023, Expires: 3 Start: 05-07-2023 End: 07-07-2023 RETIC COUNT RETIC COUNT Lab Routine Anemia, unspecified type Expected: 05/07/2023, Expires: 07/07/2023 [facility] Work Phone: Comment on above: Expected: 05/07/2023, Expires: 3 Start: 04-30-2023 End: 06-30-2023 Eibh-4-[id number] [Mass/volume] in Serum or Plasma B2 MICROGLOBULIN B Lab Routine MGUS (monoclonal gammopathy of unknown significance) Expected: 04/30/2023, Expires: 06/30/2023 [facility] Work Phone: Comment on above: Expected: 04/30/2023, Expires: 3 Start: 04-30-2023 End: 06-30-2023 CBC W Auto Differential panel - Blood CBC + DIFF Lab STAT MGUS (monoclonal gammopathy of unknown significance) Expected: 04/30/2023, Expires: 06/30/2023 [facility] Work Phone: Comment on above: Expected: 04/30/2023, Expires: 3 Start: 04-30-2023 End: 06-30-2023 Comprehensive metabolic 2000 panel - Serum or Plasma COMP METABOLIC PANEL Lab STAT MGUS (monoclonal gammopathy of unknown significance) Expected: 04/30/2023, Expires: 06/30/2023 [facility] Work Phone: Comment on above: Expected: 04/30/2023, Expires: 3 Start: 04-30-2023 End: 06-30-2023 IMMUNOGLOBULINS PILY IMMUNOGLOBULINS PILY Lab Routine MGUS (monoclonal gammopathy of unknown significance) Expected: 04/30/2023, Expires: 06/30/2023 [facility] Work Phone: Comment on above: Expected: 04/30/2023, Expires: Start: 04-30-2023 End: 06-30-2023 KAPPA/JARAMILLO,FREE,SER KAPPA/JARAMILLO,FREE,SER Lab Routine MGUS (monoclonal gammopathy of unknown significance) Expected: 04/30/2023, Expires: 06/30/2023 [facility] Work Phone: Comment on above: Expected: 04/30/2023, Expires: 3 Start: 04-30-2023 End: 06-30-2023 Lactate dehydrogenase [Enzymatic activity/volume] in Serum or Plasma LD LACTATE DEHYDRO Lab Routine MGUS (monoclonal gammopathy of unknown significance) Expected: 04/30/2023, Expires: 06/30/2023 [facility] Work Phone: Comment on above: Expected: 04/30/2023, Expires: 3 Start: 04-30-2023 End: 06-30-2023 MONOCLONAL PROT UR W/INTERP MONOCLONAL PROT UR W/INTERP Lab Routine MGUS (monoclonal gammopathy of unknown significance) Expected: 04/30/2023, Expires: 06/30/2023 [facility] Work Phone: Comment on above: Expected: 04/30/2023, Expires: 3 Start: 04-30-2023 End: 06-30-2023 MONOCLONAL PROTEIN, SERUM (BLOOD) MONOCLONAL PROTEIN, SERUM (BLOOD) Lab Routine MGUS (monoclonal gammopathy of unknown significance) Expected: 04/30/2023, Expires: 06/30/2023 [facility] Work Phone: Comment on above: Expected: 04/30/2023, Expires: Start: 04-30-2023 End: 06-30-2023 Protein [Mass/volume] in Serum or Plasma PROTEIN TOTAL BLD Lab Routine MGUS (monoclonal gammopathy of unknown significance) Expected: 04/30/2023, Expires: 06/30/2023 [facility] Work Phone: Comment on above: Expected: 04/30/2023, Expires: 3 Start: 04-30-2023 End: 06-30-2023 PROTEIN ELECT RND UR W/INTERP PROTEIN ELECT RND UR W/INTERP Lab Routine MGUS (monoclonal gammopathy of unknown significance) Expected: 04/30/2023, Expires: 06/30/2023 [facility] Work Phone: Comment on above: Expected: 04/30/2023, Expires: Start: 04-30-2023 End: 06-30-2023 PROTEIN ELECTROPHORESIS SERUM W/INTERP PROTEIN ELECTROPHORESIS SERUM W/INTERP Lab Routine MGUS (monoclonal gammopathy of unknown significance) Expected: 04/30/2023, Expires: 06/30/2023 [facility] Work Phone: Comment on above: Expected: 04/30/2023, Expires: Start: 04-16-2023 BP CONTROLLED (<130/80) BP CONTROLLED (<130/80) [facility] Start: 03-19-2023 BP CONTROLLED (<130/80) BP CONTROLLED (<130/80) [facility] Start: 01-28-2023 LIPID SCREEN LIPID SCREEN [facility] Start: 12-29-2022 Adult depression screening assessment DEPRESSION SCREENING [facility] Start: 11-22-2022 ADVANCE DIRECTIVE DISCUSSION ADVANCE DIRECTIVE DISCUSSION [facility] Start: 11-22-2022 DEPRESSION ASSESSMENT DEPRESSION ASSESSMENT [facility] Start: 09-11-2022 End: 11-11-2022 TESTOSTERONE, FREE AND TOTAL [facility] Work Phone: Comment on above: Expected: 09/11/2022, Expires: 2 Start: 09-10-2022 End: 11-10-2022 Estradiol (E2) [Mass/volume] in Serum or Plasma ESTRADIOL-17B BLD Lab Routine Hypogonadism in male Expected: 09/10/2022, Expires: 11/10/2022 [facility] Work Phone: Comment on above: Expected: 09/10/2022, Expires: 2 Start: 09-10-2022 End: 11-10-2022 Follitropin [Units/volume] in Serum or Plasma FSH BLD Lab Routine Hypogonadism in male Expected: 09/10/2022, Expires: 11/10/2022 [facility] Work Phone: Comment on above: Expected: 09/10/2022, Expires: 2 Start: 09-10-2022 End: 11-10-2022 Lutropin [Units/volume] in Serum or Plasma LUTEINIZING HORMONE Lab Routine Hypogonadism in male Expected: 09/10/2022, Expires: 11/10/2022 [facility] Work Phone: Comment on above: Expected: 09/10/2022, Expires: 2 Start: 09-10-2022 End: 11-10-2022 TESTOSTERONE, FREE AND TOTAL TESTOSTERONE, FREE AND TOTAL Lab Routine Hypogonadism in male Expected: 09/10/2022, Expires: 11/10/2022 [facility] Work Phone: Comment on above: Expected: 09/10/2022, Expires: 2 Start: 07-23-2022 Influenza vaccination [facility] Start: 06-11-2022 ANNUAL PCP TEAM CHRONIC DISEASE VISIT ANNUAL PCP TEAM CHRONIC DISEASE VISIT [facility] Start: 05-21-2022 Influenza vaccination INFLUENZA (#1) [facility] Comment on above: Postponed from 07/23/2021 (Declined at t his time) Start: 05-05-2022 End: 07-05-2022 Bzch-4-Ehlzbqnbykqrv [Mass/volume] in Serum or Plasma B2 MICROGLOBULIN B Lab Routine MGUS (monoclonal gammopathy of unknown significance) Expected: 05/05/2022, Expires: 07/05/2022 [facility] Work Phone: Comment on above: Expected: 05/05/2022, Expires: 2 Start: 05-05-2022 End: 07-05-2022 CBC W Auto Differential panel - Blood CBC + DIFF Lab STAT MGUS (monoclonal gammopathy of unknown significance) Expected: 05/05/2022, Expires: 07/05/2022 [facility] Work Phone: Comment on above: Expected: 05/05/2022, Expires: 2 Start: 05-05-2022 End: 07-05-2022 Comprehensive metabolic 2000 panel - Serum or Plasma COMP METABOLIC PANEL Lab Routine MGUS (monoclonal gammopathy of unknown significance) Expected: 05/05/2022, Expires: 07/05/2022 [facility] Work Phone: Comment on above: Expected: 05/05/2022, Expires: 2 Start: 05-05-2022 End: 07-05-2022 KAPPA/JARAMILLO,FREE,SER KAPPA/JARAMILLO,FREE,SER Lab Routine MGUS (monoclonal gammopathy of unknown significance) Expected: 05/05/2022, Expires: 07/05/2022 [facility] Work Phone: Comment on above: Expected: 05/05/2022, Expires: 2 Start: 05-05-2022 End: 07-05-2022 MONOCLONAL PROT UR W/INTERP MONOCLONAL PROT UR W/INTERP Lab Routine MGUS (monoclonal gammopathy of unknown significance) Expected: 05/05/2022, Expires: 07/05/2022 [facility] Work Phone: Comment on above: Expected: 05/05/2022, Expires: 2 Start: 05-05-2022 End: 07-05-2022 MONOCLONAL PROTEIN, SERUM (BLOOD) MONOCLONAL PROTEIN, SERUM (BLOOD) Lab Routine MGUS (monoclonal gammopathy of unknown significance) Expected: 05/05/2022, Expires: 07/05/2022 [facility] Work Phone: Comment on above: Expected: 05/05/2022, Expires: 2 Start: 05-05-2022 End: 07-05-2022 PROTEIN ELECT RND UR W/INTERP PROTEIN ELECT RND UR W/INTERP Lab Routine MGUS (monoclonal gammopathy of unknown significance) Expected: 05/05/2022, Expires: 07/05/2022 [facility] Work Phone: Comment on above: Expected: 05/05/2022, Expires: 2 Start: 05-05-2022 End: 07-05-2022 PROTEIN ELECTROPHORESIS SERUM W/INTERP PROTEIN ELECTROPHORESIS SERUM W/INTERP Lab Routine MGUS (monoclonal gammopathy of unknown significance) Expected: 05/05/2022, Expires: 07/05/2022 [facility] Work Phone: Comment on above: Expected: 05/05/2022, Expires: 2 Start: 03-17-2022 End: 05-17-2022 Hemoglobin A1c/Hemoglobin.total in Blood HGB A1C Lab Routine Impaired fasting blood sugar Expected: 03/17/2022, Expires: 05/17/2022 [facility] Work Phone: Comment on above: Expected: 03/17/2022, Expires: 2 Start: 03-17-2022 End: 05-17-2022 SCHEDULE LAB TESTING SCHEDULE LAB TESTING Lab Routine Expected: 03/17/2022, Expires: 05/17/2022 [facility] Work Phone: Comment on above: Expected: 03/17/2022, Expires: 2 Start: 02-23-2022 End: 04-25-2022 TYPE AND SCREEN,30 DAY [facility] Work Phone: Comment on above: Expected: 02/23/2022, Expires: 2 Start: 11-22-2021 ADVANCE DIRECTIVE DISCUSSION ADVANCE DIRECTIVE DISCUSSION [facility] Start: 11-22-2021 DEPRESSION ASSESSMENT DEPRESSION ASSESSMENT [facility] Start: 09-19-2020 FECAL OCCULT BLOOD FECAL OCCULT BLOOD [facility] Start: 09-19-2020 Screening for malignant neoplasm of colon Fecal Occult Blood [facility] Start: 2009 RSV Vaccine (1 - 1-dose 60+ series) RSV Vaccine (1 - 1-dose 60+ series) [facility] Start: 2009 RSV Vaccine (1 - Risk 60-74 years 1-dose series) RSV Vaccine (1 - Risk 60-74 years 1-dose series) [facility] Start: 1999 SHINGRIX VACCINE (1 of 2) SHINGRIX VACCINE (1 of 2) [facility] Start: 1994 COLOGUARD (FIT-DNA) COLOGUARD (FIT-DNA) [facility] Start: [address] COLONOGRAPHY [facility] Start: 1994 Screening for malignant neoplasm of colon [facility] Start: 1994 SIGMOIDOSCOPY SIGMOIDOSCOPY [facility] Start: 1968 HEPATITIS A (1 of 2 - Risk 2-dose series) HEPATITIS A (1 of 2 - Risk 2-dose series) [facility] Start: 1968 Hepatitis A Vaccine (1 of 2 - Risk 2-dose series) Hepatitis A Vaccine (1 of 2 - Risk 2-dose series) [facility] Start: 1968 Urine microalbumin profile [facility] Start: 1967 Anxiety Screening Anxiety Screening [facility] Start: 1967 BP CONTROLLED (<130/80) BP CONTROLLED (<130/80) [facility] Start: 1967 Depression Screening Depression Screening [facility] Start: 1954 COVID-19 VACCINE (#1) COVID-19 VACCINE (#1) [facility] Start: 1954 COVID-19 VACCINE (1) COVID-19 VACCINE (1) [facility] Start: 1950 HEPATITIS A (1 of 2 - Risk 2-dose series) HEPATITIS A (1 of 2 - Risk 2-dose series) [facility] Start: 03-06-1951 COVID-19 VACCINE (#1) COVID-19 VACCINE (#1) [facility] Bacteria identified in Urine by Culture URINE CULTURE Microbiology Routine Dysuria 02/16/2023 3:56 PM EDT [facility] Work Phone: Bacteria identified in Urine by Culture URINE CULTURE Microbiology Routine Urinary frequency 09/28/2023 6:22 PM EST [facility] Work Phone: Bacteria identified in Urine by Culture URINE CULTURE Microbiology Routine Urine retention Ordered: 09/11/2024 [facility] Work Phone: Comment on above: Ordered: 09/11/2024 End: 07-30-2024 Ct abdomen & pelvis w/o contrast material CT FLANK WO IVCON Radiology Routine Right flank pain Microscopic hematuria 1 Occurrences starting 07/01/2023 until 07/30/2024 [facility] Work Phone: Comment on above: 1 Occurrences starting 07/01/2023 until 07/30/2024 CYSTO/TRUS ONLY CYSTO/TRUS ONLY Procedures Routine 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 Overflow incontinence of urine Urinary retention Ordered: 01/31/2024 [facility] Work Phone: Comment on above: Ordered: 01/31/2024 End: 02-23-2023 ECG COMPLETE ECG COMPLETE ECG Routine Pre-op testing 1 Occurrences starting 02/23/2022 until 02/23/2023 [facility] Work Phone: Comment on above: 1 Occurrences starting 02/23/2022 until 02/23/2023 End: 01-30-2025 HANCOCK CHANGE HANCOCK CHANGE Procedures Routine 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 Overflow incontinence of urine Urinary retention 99 Occurrences starting 01/31/2024 until 01/30/2025 [facility] Work Phone: Comment on above: 99 Occurrences starting 01/31/2024 until 01/30/2025 End: 12-05-2023 Mri brain brain stem w/o w/contrast material MRI PITUITARY WO/W IVCON Radiology Routine Nonintractable headache, unspecified chronicity pattern, unspecified headache type 1 Occurrences starting 11/05/2022 until 12/05/2023 [facility] Work Phone: Comment on above: 1 Occurrences starting 11/05/2022 until 12/05/2023 End: 09-09-2023 Mri spinal canal cervical w/o contrast matrl MRI CERVICAL SPINE WO IVCON Radiology Routine Spinal stenosis of cervical region 1 Occurrences starting 08/10/2022 until 09/09/2023 [facility] Work Phone: Comment on above: 1 Occurrences starting 08/10/2022 until 09/09/2023 End: 11-18-2024 Mri spinal canal cervical w/o contrast matrl MRI CERVICAL SPINE WO IVCON Radiology STAT Spinal stenosis of cervical region Myelopathy (HCC) Urinary incontinence, unspecified type 1 Occurrences starting 10/20/2023 until 11/18/2024 [facility] Work Phone: Comment on above: 1 Occurrences starting 10/20/2023 until 11/18/2024 End: 11-18-2024 Mri spinal canal lumbar w/o contrast material MRI LUMBAR SPINE WO IVCON Radiology STAT Spinal stenosis of lumbar region with neurogenic claudication Myelopathy (HCC) Urinary incontinence, unspecified type 1 Occurrences starting 10/20/2023 until 11/18/2024 [facility] Work Phone: Comment on above: 1 Occurrences starting 10/20/2023 until 11/18/2024 PAIN PANEL, UR QUANT PAIN PANEL, UR QUANT Lab Routine Pain syndrome, chronic 06/28/2023 3:22 PM EDT [facility] Work Phone: POST VOID RESIDUAL POST VOID RES IDUAL Procedures Routine Overflow incontinence of urine Ordered: 02/16/2023 [facility] Work Phone: Comment on above: Ordered: 02/16/2023 POST VOID RESIDUAL POST VOID RES IDUAL Procedures Routine 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 Screening for genitourinary condition Ordered: 01/03/2024 [facility] Work Phone: Comment on above: Ordered: 01/03/2024 Radex hip unilateral with pelvis 1 view XR HIP 1V UNIL W PELVIS WHEN PERFORMED (AG) Radiology Routine Dislocation of hip joint prosthesis, subsequent encounter 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, subsequent encounter Ordered: 07/06/2023 [facility] Work Phone: Comment on above: Ordered: 07/06/2023 Radex hip unilateral with pelvis 1 view XR HIP 1V UNIL W PELVIS WHEN PERFORMED (AG) Radiology Routine Dislocation of hip joint prosthesis, subsequent encounter 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, subsequent encounter Ordered: 10/19/2023 [facility] Work Phone: Comment on above: Ordered: 10/19/2023 End: 04-18-2023 Radex spine cervical 4 or 5 views XR CERV OTHER 4V AP/LAT/OBL Radiology Routine Neck pain Numbness and tingling of both upper extremities 1 Occurrences starting 03/19/2022 until 04/18/2023 [facility] Work Phone: Comment on above: 1 Occurrences starting 03/19/2022 until 04/18/2023 Radiologic examinati on pelvis 1/2 views XR PELVIS 1V AP Radiology Routine 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, subsequent encounter Ordered: 01/26/2023 [facility] Work Phone: Comment on above: Ordered: 01/26/2023 Radiologic examinati on pelvis 1/2 views XR PELVIS 1V AP Radiology Routine 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, subsequent encounter Ordered: 02/23/2023 [facility] Work Phone: Comment on above: Ordered: 02/23/2023 Radiologic examinati on pelvis 1/2 views XR PELVIS 1V AP Radiology Routine 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, subsequent encounter Ordered: 03/16/2023 [facility] Work Phone: Comment on above: Ordered: 03/16/2023 Radiologic examinati on pelvis 1/2 views XR PELVIS 1V AP Radiology Routine Dislocation of hip joint prosthesis, subsequent encounter 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, subsequent encounter Ordered: 03/30/2023 [facility] Work Phone: Comment on above: Ordered: 03/30/2023 Radiologic examinati on pelvis 1/2 views XR PELVIS 1V AP Radiology Routine Dislocation of hip joint prosthesis, subsequent encounter 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, subsequent encounter Ordered: 05/11/2023 [facility] Work Phone: Comment on above: Ordered: 05/11/2023 SPECIMEN VALIDITY, URINE SPECIME N VALIDITY, URINE Lab Routine Pain syndrome, chronic 06/28/2023 3:22 PM EDT [facility] Work Phone: UA DIP, URINE (POC) UA DIP, URIN E (POC) Lab Routine Urinary frequency Ordered: 09/28/2023 [facility] Work Phone: Comment on above: Ordered: 09/28/2023 End: 04-10-2025 US Carotid arteries - bilateral US CAROTID ARTERIES [facility] Vascular Lab Routine Dizziness 1 Occurrences starting 04/10/2024 until 04/10/2025 [facility] Work Phone: Comment on above: 1 Occurrences starting 04/10/2024 until 04/10/2025 US CYSTO/TRUS (POC) GUKI USE ONLY US CYSTO/TRUS (POC) GUKI USE ONLY Imaging Diagnostic Routine BPH with obstruction/lower urinary tract symptoms Urine retention Hydronephrosis, unspecified hydronephrosis type Ordered: 07/10/2024 [facility] Work Phone: Comment on above: Ordered: 07/10/2024 End: 01-27-2025 US Kidney - bilateral and Urinary bladder US KIDNEY/BLADDER Radiology Routine Acute cystitis without hematuria 1 Occurrences starting 12/29/2023 until 01/27/2025 [facility] Work Phone: Comment on above: 1 Occurrences starting 12/29/2023 until 01/27/2025 End: 05-19-2025 US Kidney - bilateral and Urinary bladder US KIDNEY/BLADDER Radiology Routine Hydronephrosis, unspecified hydronephrosis type BPH with obstruction/lower urinary tract symptoms Urine retention 1 Occurrences starting 04/19/2024 until 05/19/2025 [facility] Work Phone: Comment on above: 1 Occurrences starting 04/19/2024 until 05/19/2025 VOIDING TRIAL PROTOCOL VOIDING T RIAL PROTOCOL Procedures Routine BPH with obstruction/lower urinary tract symptoms Ordered: 07/31/2024 [facility] Work Phone: Comment on above: Ordered: 07/31/2024 XR FEMUR GENERAL 2V AP/LAT RIGHT XR FEMUR GENERAL 2V AP/LAT RIGHT Radiology Routine 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, subsequent encounter Ordered: 01/26/2023 [facility] Work Phone: Comment on above: Ordered: 01/26/2023 XR FEMUR GENERAL 2V AP/LAT RIGHT XR FEMUR GENERAL 2V AP/LAT RIGHT Radiology Routine 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, subsequent encounter Ordered: 02/23/2023 [facility] Work Phone: Comment on above: Ordered: 02/23/2023 XR FEMUR GENERAL 2V AP/LAT RIGHT XR FEMUR GENERAL 2V AP/LAT RIGHT Radiology Routine 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, subsequent encounter Ordered: 03/16/2023 [facility] Work Phone: Comment on above: Ordered: 03/16/2023 XR FEMUR GENERAL 2V AP/LAT RIGHT XR FEMUR GENERAL 2V AP/LAT RIGHT Radiology Routine Dislocation of hip joint prosthesis, subsequent encounter 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, subsequent encounter Ordered: 03/30/2023 [facility] Work Phone: Comment on above: Ordered: 03/30/2023 XR FEMUR GENERAL 2V AP/LAT RIGHT XR FEMUR GENERAL 2V AP/LAT RIGHT Radiology Routine Dislocation of hip joint prosthesis, subsequent encounter 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, subsequent encounter Ordered: 05/11/2023 [facility] Work Phone: Comment on above: Ordered: 05/11/2023 XR FEMUR GENERAL 2V AP/LAT RIGHT XR FEMUR GENERAL 2V AP/LAT RIGHT Radiology Routine Dislocation of hip joint prosthesis, subsequent encounter 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, subsequent encounter Ordered: 07/06/2023 [facility] Work Phone: Comment on above: Ordered: 07/06/2023 XR FEMUR GENERAL 2V AP/LAT RIGHT XR FEMUR GENERAL 2V AP/LAT RIGHT Radiology Routine Dislocation of hip joint prosthesis, subsequent encounter 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, subsequent encounter Ordered: 10/19/2023 [facility] Work Phone: Comment on above: Ordered: 10/19/2023 End: 04-25-2023 XR HIP GENERAL 3V PELV/AP/LAT RIGHT XR HIP GENERAL 3V PELV/AP/LAT RIGHT Radiology Routine Pain in right hip 1 Occurrences starting 03/26/2022 until 04/25/2023 [facility] Work Phone: Comment on above: 1 Occurrences starting 03/26/2022 until 04/25/2023 End: 12-02-2023 XR RIBS/CHEST 3V AP RIB/OBLS/CXR LEFT XR RIBS/CHEST 3V AP RIB/OBLS/CXR LEFT Radiology Routine Closed fracture of multiple ribs of left side with routine healing, subsequent encounter 1 Occurrences starting 11/02/2022 until 12/02/2023 [facility] Work Phone: Comment on above: 1 Occurrences starting 11/02/2022 until 12/02/2023 XR RIBS/CHEST 3V AP RIB/OBLS/CXR LEFT XR RIBS/CHEST 3V AP RIB/OBLS/CXR LEFT Radiology Routine Closed fracture of multiple ribs of left side with routine healing, subsequent encounter 11/02/2022 11:59 AM EST [facility] Work Phone: [facility] [place] OR [facility] [place] OR [facility] Immunizations Immunization Date Immunization Notes Care Provider [facility] 10-28-2023 influenza (HD-IIV4) vaccine, age 65+ yr, high dose, quadrivalent, PF (FLUZONE HIGH-DOSE) NA Dejuan PAUL Work Phone: [facility] 10-28-2023 influenza virus vacc ine, unspecified formulation Kerri Farmer FOOD AIDE.DIRECTOR OF TESTING Work Phone: [facility] 01-05-2019 influenza virus vacc ine, unspecified formulation Joshua Vieira FOOD AIDE.DIRECTOR OF TESTING Work Phone: [facility] 12-10-2016 pneumococcal conjuga te vaccine, 13 valent Gracy Sears FOOD AIDE.DIRECTOR OF TESTING Work Phone: [facility] 10-25-2014 pneumococcal polysaccharide vaccine, 23 valent Gracy Dahlhausen FOOD AIDE.DIRECTOR OF TESTING Work Phone: [facility] 09-24-2014 influenza, seasonal, injectable Gracykathie Sears FOOD AIDE.DIRECTOR OF TESTING Work Phone: [facility] 09-29-2010 influenza virus vacc ine, unspecified formulation Gracy Sears FOOD AIDE.DIRECTOR OF TESTING Work Phone: [facility] Work Phone: 11-13-2009 novel influenza-H1N1 -09, preservative-free, injectable NA Zaidi PA-C Work Phone: [facility] 09-25-2009 hepatitis B vaccine, adult dosage Gracy Dahlhausen FOOD AIDE.DIRECTOR OF TESTING Work Phone: [facility] 08-05-2009 influenza virus vacc ine, whole virus NA Zaidi PA-C Work Phone: [facility] 04-24-2009 hepatitis B vaccine, adult dosage Gracy Dahlhausen FOOD AIDE.DIRECTOR OF TESTING Work Phone: [facility] 04-24-2009 hepatitis B vaccine, pediatric or pediatric/adolescent dosage NA Zaidi PA-C Work Phone: [facility] 03-14-2009 hepatitis B vaccine, adult dosage Gracy Dahlhausen FOOD AIDE.DIRECTOR OF TESTING Work Phone: [facility] 08-27-2008 influenza virus vacc ine, whole virus Gracy Dahlhausen FOOD AIDE.DIRECTOR OF TESTING Work Phone: [facility] 10-04-2006 influenza virus vacc ine, unspecified formulation Gracy Dahlhausen FOOD AIDE.DIRECTOR OF TESTING Work Phone: [facility] 08-22-2006 influenza virus vacc ine, whole virus Gracy Dahlhausen FOOD AIDE.DIRECTOR OF TESTING Work Phone: [facility] 04-24-1990 hepatitis B vaccine, adult dosage Gracy Dahlhausen FOOD AIDE.DIRECTOR OF TESTING Work Phone: [facility] Payers Date Payer Category Payer Medicare HU[employer]NA MEDICARE HU[employer]NA GOLD PLUS [id number] 2021-Present [phone] [address] [address] [place] [address] [facility] [id number] 2018 Medicare [id number] 2018 Private Health Insurance [id number] 1950 Unknown [id number] Social History Date Type Detail Facility Start: 03-20-2013 End: 07-10-2024 Tobacco smoking status NHIS Ex-smoker [facility] Start: 11-22-1969 End: 11-22-1992 History of tobacco use Current smoker [facility] Start: 11-22-1969 End: 11-22-1992 History of tobacco use Cigarette Smoker [facility] Start: 02-18-2022 End: 09-11-2024 Alcohol intake Ex-drinker (finding) [facility] Start: 09-29-2010 History SDOH Alcohol Comment quit in 1991. [facility] Start: 1950 Sex Assigned At Not on file [facility] Start: 11-23-2021 End: 08-10-2022 Exposure to SARS-CoV-2 (event) Yes [facility] Start: 11-13-2020 End: 10-22-2022 Exposure to SARS-CoV-2 (event) Not sure [facility] Start: 03-20-2013 End: 12-06-2022 Cigarettes smoked current (pack per day) - Reported 2 [facility] Start: 03-20-2013 End: 07-10-2024 Tobacco use and exposure Smokeless tobacco non-user [facility] Start: 11-13-2022 History SDOH Financial 5 [facility] Start: 11-13-2022 End: 01-11-2023 History SDOH Food Worry 1 [facility] Start: 11-13-2022 End: 01-11-2023 History SDOH Transport Med 2 [facility] Start: 01-11-2023 History SDOH Financial 3 [facility] Start: 12-06-2022 End: 05-12-2023 Tobacco use panel [facility] How hard is it for y ou to pay for the very basics like food, housing, medical care, and heating Somewhat hard [facility] Adult Depression Screening Assessment 0 [facility] Work Phone: (I/We) worried wheth er (my/our) food would run out before (I/we) got money to buy more. Never true [facility] In the past 12 month s, was there a time when you were not able to pay the mortgage or rent on time? No [facility] Start: 12-13-2020 Alcoholic beverage intake Current non-drinker of alcohol (finding) [facility] NEGATED: Highlighted rowStart: EDIF History of tobacco use Passive smoker [facility] Medical Equipment Procedure Code Equipment Code Equipment Origin al Text Equipment Identifier Dates Hilario Bn Smpx P Speedset Fd Fst - [id number] Start: 01-04-2015 Lwm-Xx-X-Kind Implant - [id number] Start: 01-04-2015 Comment on above: Description: Eccentr ic Humeral Head C1776 ECC HUMERAL HEAD Shell Actb 60mm Prim Sb Hmsphr - [id number] Start: 07-25-2014 Ins Actb 36mm 0d F X3 Trdnt - [id number] Start: 07-25-2014 Fem Stem Acclde 2 Sz 8 127 Deg - [id number] Start: 07-25-2014 Head Fem 36mm V4 0 Blx D - [id number] Start: 07-25-2014 Fowler Steptec Jagdish 52 5mm Rt - [id number] Start: 01-04-2015 Comment on above: Description: C1776 A NCHOR STEPTEC JAGDISH 52 5MM RT Stem Hum 14mm Gl ob Ap Shldr - [id number] Start: 01-04-2015 Assemb Tapr Glob Ap 135d Shldr - [id number] Start: 01-04-[address] us Bovine Collagen Matrix 2x2in Soft Tissue Patch - [id number] Start: 04-01-2022 Cable Dall-Miles 2mm Vitallium Orthopedic Set Sleeve Bead Hip - [id number] Start: 01-08-2023 Ivu-Wj-B-Kind Implant - [id number] Start: 01-08-2023 Imp Hip Cone Bdy Rest 21 [id number] Start: 01-11-2023 Head V40 36mm +5 mm Offset Taper Biolox Delta Femoral Hip - [id number] Start: 01-08-2023 Head V40 36mm +5 mm Offset Taper Biolox Delta Femoral Hip - [id number] Start: 01-11-2023 Imp Hip Fem Stem Rest [id number] Start: 01-11-2023 Imp Hip Acet Lnr Cnstrn 28mm [id number] Start: 04-02-2023 Head V40 28mm -4 mm Offset Taper Biolox Delta Femoral Hip - [id number] Start: 04-02-2023 Gcy-Lw-J-Kind Implant - [id number] Start: 01-08-2023 Imp Hip Cone Bdy Rest 21 [id number] Start: 04-02-2023 Cable Dall-Miles 2mm Vitallium Orthopedic Set Sleeve Bead Hip - [id number] Start: 01-08-2023 Cable Dall-Miles 2mm Vitallium Orthopedic Set Sleeve Bead Hip - [id number] Start: 01-08-2023 Clinical Notes 07-31-2010 to 09-11-2024 Vicente Quintana MD - [facility] Eugene Uriarte RN - 09/11/2024 [facility] Eugene Uriarte RN - 09/11/2024 1:30 PM EDT Note Date & Type Note Facility 09-11-2024 History of Present illness Narrative ESTABLISHED PATIENT VISIT HPI Miroslava Peralta is a 74 year old male who presents with BPH, urinary retention Did not want hancock removed after his routine visit for hancock removal and PVR check Wants hancock removed now, but I discussed concern for infection 07/25/24 Aquablation 07/10/24 OV DFB history of BPH. Patient has a history of retention with hydronephrosis On tamsulosin H/o high PVR, B hydro PSA 2.04 10/03/23 Cysto BPH, bilobar TRUS approx 65 g Copied from prior : 02/09/2024 cystoscopy 68 gram prostate FINDINGS Urethra: Normal Sphincter: Normal / Coapted Prostate: Enlarged Lateral Lobes / Enlarged Median Lobe Bladder Neck: Patent Urothelium: normal appearing, no evidence of tumor, no erythema, no foreign body Trabeculation: Yes Inflammation: Yes, mild from catheter Diverticulum: No Ureteral Orifices: normal appearing, orthotopic position, clear efflux bilaterally Trigone: normal appearing 12/31/2023 Renal us IMPRESSION: Moderately distended urinary bladder with debris and significant post void residual. Mild-moderate RIGHT and mild LEFT hydronephrosis. Creatinine Date Value Ref Range Status 07/26/2024 1.27 (H) 0.73 - 1.22 mg/dL Final PSA Screening (ng/mL) Date Value 10/03/2013 2.04 08/03/2012 1.83 Color (no units) Date Value 12/28/2023 Yellow 01/05/2019 Yellow Clarity (no units) Date Value 12/28/2023 Clear 01/05/2019 Cloudy Glucose, Urine Date Value 12/28/2023 Negative 01/05/2019 Negative mg/dL Bilirubin, Urine (no units) Date Value 12/28/2023 Negative 01/05/2019 Negative Ketones, Urine (no units) Date Value 12/28/2023 Negative 01/05/2019 Negative Specific [place], Ur (no units) Date Value 12/28/2023 1.013 01/05/2019 1.026 Hemoglobin/Blood,Ur Date Value 12/28/2023 1+ 01/05/2019 Negative pH, Urine (no units) Date Value 12/28/2023 6.0 01/05/2019 5.0 Protein, Urine Date Value 12/28/2023 Negative 01/05/2019 Negative mg/dL Urobilinogen (no units) Date Value 12/28/2023 0.2 EU/dL 01/05/2019 Normal Nitrites (no units) Date Value 12/28/2023 Negative 01/05/2019 Negative Leukest (no units) Date Value 01/05/2019 Negative Leuk Esterase (no units) Date Value 12/28/2023 3+ 24HR Urine Studies: No results for input(s): LUPH , LUCAL , LUCIT , LUOXA , LUURIC , LUVOL , LSCAO , LSCAP , LSURIC , LUCL , CYNDI , NATHALY , LUUREA , LUAM , LUMAG , LUPHOS , LUPCR , LUCREA , LUCRKBW , LUCAKBW , LUCACREA , LUCREACL , LWK , LUSUL in the last [id number] hours. REVIEW OF SYSTEMS Review of Systems Review of system, history including past medical history, surgical history, family history and social history reviewed and confirmed by me. HISTORIES PAST MEDICAL HISTORY Diagnosis Date Acute pharyngitis, unspecified Acute posthemorrhagic anemia Arthritis 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 Bilateral primary osteoarthritis of hip BPH without obstruction/lower urinary tract symptoms Chronic hepatitis C without hepatic coma (HCC) 01/05/2019 10/10/2021 Hep C not detectable 06/16/[address] Augustine. Completed treatment. 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 Dysphagia, oral phase Hip arthritis History of transfusion HTN (hypertension) Well controlled on medication--Managed by PCP Hydronephrosis, unspecified hydronephrosis type Insomnia, unspecified Leukocytosis 11/22/1986 [place] admission - thought leukemia and he refused tests Overflow incontinence of urine S/P hip replacement Urine retention PAST SURGICAL HISTORY Procedure Laterality Date (2016) TRANSURETHRAL WATERJET ABLATION PROSTATE COMPL 07/25/2024 ARTHRP ACETBLR/PROX FEM PROSTC AGRFT/ALGRFT Right 07/25/2014 Hip replacement, total, right BACK SURGERY HX Lumbar spine surgery COLONOSCOPY 07/16/2003 random biopsies negative COLONOSCOPY FLX DX W/COLLJ SPEC WHEN PFRMD 06/27/2013 Colonoscopy JOINT REPLACEMENT HX Right Total shoulder-- PAST SURGICAL HISTORY OF 1997 shoulder surgery bilateral PAST SURGICAL HISTORY OF 1997 tendon repair bilat elbows. SKIN BIOPSY HX FAMILY HISTORY Problem Relation Age of Onset Cancer Mother breast cancer Hypertension Mother None Father father in train accident at yuni age Hypertension Sister SOCIAL HISTORY Social History Tobacco Use Smoking status: Former Current packs/day: 0.00 Average packs/day: 2.0 packs/day for 23.0 years (46.0 ttl pk-yrs) Types: Cigarettes Start date: 11/22/1969 Quit date: 11/22/1992 Years since quittin.8 Passive exposure: Never Smokeless tobacco: Never Vaping Use Vaping status: Never Used Substance Use Topics Alcohol use: Not Currently Comment: quit in 1991. Drug use: Not Currently Comment: Quit drugs in ~92. MEDICATIONS: tamsulosin (FLOMAX) 0.4 mg^Take 1 capsule by mouth daily at bedtime.^Disp: 90 capsule^Rfl: 3 traZODone (DESYREL) 100 mg tablet^Take 1 tablet by mouth daily at bedtime.^Disp: 90 tablet^Rfl: 3 amLODIPine (NORVASC) 10 mg tablet^Take 1 tablet by mouth once daily.^Disp: 90 tablet^Rfl: 3 buPROPion XL (WELLBUTRIN XL) 300 mg 24 hr tablet^Take 1 tablet by mouth once daily.^Disp: 90 tablet^Rfl: 3 ferrous sulfate EC 324 mg (65 mg iron) TbEC^Take 1 tablet by mouth two times a day with meals.^Disp: 180 tablet^Rfl: 1 gabapentin (NEURONTIN) 300 mg capsule^Take 2 capsules by mouth three times a day.^Disp: 90 capsule^Rfl: 3 potassium chloride ER (KLOR-CON) 20 mEq tablet^Take 1 tablet by mouth once daily.^Disp: 90 tablet^Rfl: 1 meclizine (ANTIVERT) 12.5 mg tab^Take 1 tablet by mouth three times a day.^Disp: 90 tablet^Rfl: 0 Blood Pressure Monitor^1 Each once daily.^Disp: 1 Each^Rfl: 0 Melatonin 5 mg cap^Take 1 capsule by mouth daily at bedtime.^Disp: 90 capsule^Rfl: 3 polyethylene glycol 3350 17 gram packet^Take 17 g by mouth once daily. Dissolve dose in 4 - 8 ounces of liquid and take as directed.^Disp: ^Rfl: menthol/camphor (BIOFREEZE TOPICAL)^Apply to affected area three times daily. Apply to posterior hand and right scapula for pain and order to apply every four hours as needed for pain not to exceed more than four total applications per day.^Disp: ^Rfl: senna (SENOKOT) 8.6 mg tab^Take 1 tablet by mouth twice daily as needed for constipation.^Disp: ^Rfl: gabapentin (NEURONTIN) 300 mg capsule^Take 2 capsules by mouth three times a day for 90 days.^Disp: 540 capsule^Rfl: 0 (Patient not taking: Reported on 08/22/2024) Catheter (BARD COUDE TIP CATHETER) 16 Fr misc^ISC 2-3 x per day for urinary retention^Disp: 100 Each^Rfl: 1 (Patient not taking: Reported on 08/22/2024) PHYSICAL EXAMINATION General appearance: Well appearing, alert, in no acute distress, and well-hydrated, well nourished ASSESSMENT/PLAN: 1. BPH with obstruction/lower urinary tract symptoms - ICD9: 600.01, 599.69, ICD10: N40.1, N13.8 (primary diagnosis) 2. Urine retention - ICD9: 788.20, ICD10: R33.9 - URINE CULTURE Vicente Quintana Send urine culture now, directed antibiotics and start prior to voiding trial next week Medical Decision Making: Medical Decision Making Level: 1 - N/A documented in this encounter [facility] 09-11-2024 Miscellaneous Notes New orders received for PT/SP evals. [facility] rehab and primary nurse notified. documented in this encounter [facility] 09-11-2024 Patient's home Note New orders received for PT/SP evals. [facility] rehab and primary nurse notified. [facility] Work Phone: 09-11-2024 Miscellaneous Notes 09/11/24 9:05 AM - 9:08 AM WAITER/WAITRESS called the pt. regarding his appointment today with Urology and the pt. stated he remembered and stated his appointment was at 3:00 PM. The pt. stated he would be ready at 1;30 PM for the transportation to pick him up. The pt. thanked WAITER/WAITRESS for calling him. documented in this encounter [facility] 09-11-2024 Patient's home Note 09/11/24 9:05 AM - 9:08 AM WAITER/WAITRESS called the pt. regarding his appointment today with Urology and the pt. stated he remembered and stated his appointment was at 3:00 PM. The pt. stated he would be ready at 1;30 PM for the transportation to pick him up. The pt. thanked WAITER/WAITRESS for calling him. [facility] Work Phone: 09-07-2024 Telephone encounter Note Ok for above. Agree with social services technician seeing him. See previous note [facility] 09-07-2024 Miscellaneous Notes Ok for above. Agree with social services technician seeing him. See previous note Dione Uriarte with [facility] calls to request orders for PT eval and TX for dizziness (would like to have ears checked for crystals) and ST eval for cognition. Reports that patient is not managing well in the home and that memory is poor. Patient is dizzy frequently and not walking in the home. Patient is refusing AL placement. Dione requests call back at [phone]. Please review and adviseLicha RN documented in this encounter [facility] 09-07-2024 Telephone encounter Note Dione Uriarte with [facility] calls to request orders for PT eval and TX for dizziness (would like to have ears checked for crystals) and ST eval for cognition. Reports that patient is not managing well in the home and that memory is poor. Patient is dizzy frequently and not walking in the home. Patient is refusing AL placement. Dione requests call back at [phone]. Please review and adviseLicha RN [facility] 09-07-2024 Miscellaneous Notes SN had discussion with primary nurse regarding ongoing needs of the patient as he is not managing well in the home. Primary visit nurse reports 2 falls without injury this week. Continued complaints of dizziness. Continued issues with managing his medications. The pre-packaged medications are still in process. SN will contact PCP's office to request PT evaluation for BPPV=Benign paroxysmal positional vertigo- loose crystals dx. SN will also request SP therapy eval to evaluate cognition. 10:00am call to Abena Beckford APRN.CNP office with above requests. This SN also spoke with Bharati DANIEL for coordination of care concerns. documented in this encounter [facility] 09-07-2024 Patient's home Note SN had discussion with primary nurse regarding ongoing needs of the patient as he is not managing well in the home. Primary visit nurse reports 2 falls without injury this week. Continued complaints of dizziness. Continued issues with managing his medications. The pre-packaged medications are still in process. SN will contact PCP's office to request PT evaluation for BPPV=Benign paroxysmal positional vertigo- loose crystals dx. SN will also request SP therapy eval to evaluate cognition. 10:00am call to Abena Beckford APRN.MYRA office with above requests. This SN also spoke with Bharati DANIEL for coordination of care concerns. [facility] Work Phone: 09-07-2024 Miscellaneous Notes 09/07/24 WAITER/WAITRESS spoke with Eugene Uriarte RN Case Manager and she discussed the pt. with WAITER/WAITRESS and that she was looking into PT seeing the pt. again regarding his dizziness. She stated that the pt. had fallen per Andressa Shah RN and Andressa saw the pt. yesterday. WAITER/WAITRESS discussed with Eugene regarding a Speech Therapist for the pt. regarding his memory. WAITER/WAITRESS discussed the pt. was on the waiting list for Care Coordination. WAITER/WAITRESS will contact the pt. regarding concerns of him managing alone in his apt. and regarding hiring help in the home. 09/07/24 9:57 AM - 10:02 AM WAITER/WAITRESS called the pt. and he stated he recognized WAITER/WAITRESS'S voice. WAITER/WAITRESS stated she was calling regarding concerns of him living alone and his recent fall. The pt. stated I did not fall but slipped when transferring from bed to the wheelchair. WAITER/WAITRESS asked the pt. if he would like WAITER/WAITRESS to talk with family and that WAITER/WAITRESS could call his daughter. He stated she lives in [place] and declined WAITER/WAITRESS calling any family. WAITER/WAITRESS discussed with the pt. if he was looking to hire someone to do his laundry and cleaning in his apt. The pt. stated he thought about it but stated I cannot afford to pay $25 an hour. WAITER/WAITRESS discussed with the pt. that he was on the waiting list for Care Coordination through [facility] on Aging & Disabilities but it may take time to get an Aide/Homemaker under Care Coordination. WAITER/WAITRESS discussed with the pt. regarding his dizziness. The pt. stated he was pucking the other day and WAITER/WAITRESS asked if that was from being dizzy and he stated. No it was from eating my strawberry jam that was no good. WAITER/WAITRESS discussed with the pt. going into assisted living and the pt. does not want this. WAITER/WAITRESS asked the pt. if he had food and he stated he did and that his friends picked him up groceries yesterday. WAITER/WAITRESS discussed with the pt. regarding his appointment with Urology on Wednesday09/11/24 and the pt. stated yes. WAITER/WAITRESS discussed hiw appointment was at 3:15 PM and the pt. stated they are to pick him up around 1:30 PM. The pt. stated he will be able to do his own laundry and thanked WAITER/WAITRESS for calling. He stated he was managing and WAITER/WAITRESS informed the pt. to call WAITER/WAITRESS with any needs. 09/07/24 10:02 AM - 10:10 AM WAITER/WAITRESS called Vero Torres with [facility] regarding concerns of the pt. living alone. WAITER/WAITRESS discussed with Vero that the pt. fell getting from bed to his wheelchair. WAITER/WAITRESS discussed with vero regarding the pt. telling WAITER/WAITRESS he was pucking from eating strawberry jam that was no good. WAITER/WAITRESS discussed concerns of the pt. being forgetful. WAITER/WAITRESS informed Vero that the pt. did have a home assessment from [facility] and was put on the waiting list for Care Coordination. WAITER/WAITRESS stated that the pt. was over financially for [employer]. WAITER/WAITRESS stated that the pt. did not want her to call his family. WAITER/WAITRESS stated that the pt. receives 5 meals a week and has limited assist to grocery shop. WAITER/WAITRESS discussed with Vero regarding getting PT to see the pt. again for his dizziness and discussed getting a Speech Therapist for the pt.'s memory. Vero discussed the pt. going to the [facility] for meals. Vero stated she has documented this and to call her with any concerns. The pt.'s case is currently closed. 09/07/24 10:11 AM WAITER/WAITRESS called Eugene Uriarte RN Case Manager regarding phone call with the pt. and phone call to Vero Torres with [facility]. Eugene has conatcted the DrAkhil regarding PT and Speech Therapy for the pt. documented in this encounter [facility] 09-07-2024 Patient's home Note 09/07/24 WAITER/WAITRESS spoke with Eugene Uriarte RN Case Manager and she discussed the pt. with WAITER/WAITRESS and that she was looking into PT seeing the pt. again regarding his dizziness. She stated that the pt. had fallen per Andressa Shah RN and Andressa saw the pt. yesterday. WAITER/WAITRESS discussed with Eugene regarding a Speech Therapist for the pt. regarding his memory. WAITER/WAITRESS discussed the pt. was on the waiting list for Care Coordination. WAITER/WAITRESS will contact the pt. regarding concerns of him managing alone in his apt. and regarding hiring help in the home. 09/07/24 9:57 AM - 10:02 AM WAITER/WAITRESS called the pt. and he stated he recognized WAITER/WAITRESS'S voice. WAITER/WAITRESS stated she was calling regarding concerns of him living alone and his recent fall. The pt. stated I did not fall but slipped when transferring from bed to the wheelchair. WAITER/WAITRESS asked the pt. if he would like WAITER/WAITRESS to talk with family and that WAITER/WAITRESS could call his daughter. He stated she lives in [place] and declined WAITER/WAITRESS calling any family. WAITER/WAITRESS discussed with the pt. if he was looking to hire someone to do his laundry and cleaning in his apt. The pt. stated he thought about it but stated I cannot afford to pay $25 an hour. WAITER/WAITRESS discussed with the pt. that he was on the waiting list for Care Coordination through [facility] on Aging & Disabilities but it may take time to get an Aide/Homemaker under Care Coordination. WAITER/WAITRESS discussed with the pt. regarding his dizziness. The pt. stated he was pucking the other day and WAITER/WAITRESS asked if that was from being dizzy and he stated. No it was from eating my strawberry jam that was no good. WAITER/WAITRESS discussed with the pt. going into assisted living and the pt. does not want this. WAITER/WAITRESS asked the pt. if he had food and he stated he did and that his friends picked him up groceries yesterday. WAITER/WAITRESS discussed with the pt. regarding his appointment with Urology on Wednesday09/11/24 and the pt. stated yes. WAITER/WAITRESS discussed hiw appointment was at 3:15 PM and the pt. stated they are to pick him up around 1:30 PM. The pt. stated he will be able to do his own laundry and thanked WAITER/WAITRESS for calling. He stated he was managing and WAITER/WAITRESS informed the pt. to call WAITER/WAITRESS with any needs. 09/07/24 10:02 AM - 10:10 AM WAITER/WAITRESS called Vero Torres with [facility] regarding concerns of the pt. living alone. WAITER/WAITRESS discussed with Vero that the pt. fell getting from bed to his wheelchair. WAITER/WAITRESS discussed with vero regarding the pt. telling WAITER/WAITRESS he was pucking from eating strawberry jam that was no good. WAITER/WAITRESS discussed concerns of the pt. being forgetful. WAITER/WAITRESS informed Vero that the pt. did have a home assessment from [facility] on Aging & Disabilities and was put on the waiting list for Care Coordination. WAITER/WAITRESS stated that the pt. was over financially for [employer]RE[employer] for [employer]. WAITER/WAITRESS stated that the pt. did not want her to call his family. WAITER/WAITRESS stated that the pt. receives 5 meals a week and has limited assist to grocery shop. MARGARITA discussed with Vero regarding getting PT to see the pt. again for his dizziness and discussed getting a Speech Therapist for the pt.'s memory. Vero discussed the pt. going to the [facility] for meals. Vero stated she has documented this and to call her with any concerns. The pt.'s case is currently closed. 09/07/24 10:11 AM WAITER/WAITRESS called Eugene Uriarte RN Case Manager regarding phone call with the pt. and phone call to Vero Torres with [facility]. Eugene has conatcted the Dr. regarding PT and Speech Therapy for the pt. [facility] Work Phone: 09-07-2024 Telephone encounter Note Noted. Thank you. [facility] 09-07-2024 Miscellaneous Notes Noted. Thank you. Good evening; Pt had 2 falls on 09/04 afternoon transferring from his bed to his w/c. He is not sure how this happened but reports that he found himself on the floor and the first time called a friend who assisted him up. The second time he thinks that someone called the ambulance who assisted him back to bed and did not transport to ED. Pt has scrapes to L forehead, L knee and R toes. These are all dry and open to air. This pt is not managing well at home; we have had our AIRCRAFT STRUCTURAL REPAIRER involved and we feel that pt needs a higher level of care than home care can provide. We will be elevating this to a team discussion and will contact you with recommendations. You may review our SW notes in his chart. Thank you and will keep you posted. documented in this encounter [facility] 09-06-2024 Telephone encounter Note Good evening; Pt had 2 falls on 09/04 afternoon transferring from his bed to his w/c. He is not sure how this happened but reports that he found himself on the floor and the first time called a friend who assisted him up. The second time he thinks that someone called the ambulance who assisted him back to bed and did not transport to ED. Pt has scrapes to L forehead, L knee and R toes. These are all dry and open to air. This pt is not managing well at home; we have had our AIRCRAFT STRUCTURAL REPAIRER involved and we feel that pt needs a higher level of care than home care can provide. We will be elevating this to a team discussion and will contact you with recommendations. You may review our SW notes in his chart. Thank you and will keep you posted. [facility] Work Phone: 09-06-2024 Miscellaneous Notes SITUATION: Mcfp routine visit completed today. only patient present during today's visit. patient reports the following: Allergies--reviewed Medications--reviewed current medications Falls--Yes, see fall section for details BACKGROUND: Reason for Home Care: pt with hx of dizziness, decreased ability to manage his home needs, unable to manage his med media planner / buyer. ASSESSMENT: SN greeted at door by patient utilizing wheelchair Patient appears in no acute distress. Patient/CG concerns verbalized today: pt verbalizes that he has had issues with the hancock tubing coming apart and causing urine leakage causing many of his clothes to get soiled as well as the carpet in his apt. Vitals (see flow sheet for details): stable SN findings today: Pt wheeled himself to door of apt building and SN immediately notes a scrape on his L forehead, scrapes on outer L knee and scrapes to R toes. These are all scabbed and dry. Pt reports that he fell twice on Wednesday-mid day-trying to get from bed to his w/c. He is not sure what he scraped his head on to cause that scab. SN notes that all scabs are clean and dry; pt is need of toenail care but this is not related to the falls. Pt continues to c/o dizziness and his demeanor is not different from previous SN vs as far as his frustration with the ongoing dizziness and he feels that he should be able to live on his own and does not want to go to a home . His inability to adequately manage in his home is very evident. He has a pile of laundry that he has not been able to do. Pt questions if there may be a private homemaker to assist.Pt reports that he may be willing to consider private help depending on the cost. SN notes that pt is in the same clothes as last week and states that he needs to shower but has no one to assist. SN notes that OT dc completed with recommendation of supervision but there is no supervision available. AGRICULTURAL ENGINEERING TEACHER was also dc'd at that time. PT dc'd with recommendation for OP therapy but pt not sure how to get there. This SN assisted pt with a shower today due to he does not feel comfortable transferring. He did his shower and had great difficulty getting in and out of the shower. He is not safe doing this. Pt was not able to dress himself and SN assisted him with dressing. He has clean clothes available in closet but only wanted a new T shirt; he has no clean shorts and does not feel that he can manage the hancock cath without shorts.Pt looked through his dirty laundry and directed SN to the cleanest pair. No laundry has been done and pt has no one to assist. SN was also able to locate new urinary drainage bag and statlocks and these were changed today. Pt reminded that he has an appt with urologist on 09/11 at 3:15pm; he did not remember this and states that he will be out on porch for scheduled transportation. Much discusion about assisted living and pt states that give me 2 more weeks . SN questioned this and pt has no idea why 2 weeks would make a difference. I will end up in a home . Medication box was filled for this coming week. Plan to discuss with rehabilitation case coordinator and recommend that pt be on high risk call for next week for plan. Pt at very high risk for falls; he is clearly not managing his day to day needs, he is unable to do personal care and homemaking needs, unable to fill his pill media planner / buyer. He does not qualify for PASSPORT and this is not an immediate fix. See intervention summary for education details. Patient demonstrated a need for further skilled SN services for chronic disease management & education, medication education and urinary catheter care. Current Discharge plan: self-care RECOMMENDATION: Next visit to focus on (be specific): Pt to be discussed with care team and plan to be determined. documented in this encounter [facility] 09-06-2024 Patient's home Note SITUATION: Mcfp routine visit completed today. only patient present during today's visit. patient reports the following: Allergies--reviewed Medications--reviewed current medications Falls--Yes, see fall section for details BACKGROUND: Reason for Home Care: pt with hx of dizziness, decreased ability to manage his home needs, unable to manage his med media planner / buyer. ASSESSMENT: SN greeted at door by patient utilizing wheelchair Patient appears in no acute distress. Patient/CG concerns verbalized today: pt verbalizes that he has had issues with the hancock tubing coming apart and causing urine leakage causing many of his clothes to get soiled as well as the carpet in his apt. Vitals (see flow sheet for details): stable SN findings today: Pt wheeled himself to door of apt building and SN immediately notes a scrape on his L forehead, scrapes on outer L knee and scrapes to R toes. These are all scabbed and dry. Pt reports that he fell twice on Wednesday-mid day-trying to get from bed to his w/c. He is not sure what he scraped his head on to cause that scab. SN notes that all scabs are clean and dry; pt is need of toenail care but this is not related to the falls. Pt continues to c/o dizziness and his demeanor is not different from previous SN vs as far as his frustration with the ongoing dizziness and he feels that he should be able to live on his own and does not want to go to a home . His inability to adequately manage in his home is very evident. He has a pile of laundry that he has not been able to do. Pt questions if there may be a private homemaker to assist.Pt reports that he may be willing to consider private help depending on the cost. SN notes that pt is in the same clothes as last week and states that he needs to shower but has no one to assist. SN notes that OT dc completed with recommendation of supervision but there is no supervision available. AGRICULTURAL ENGINEERING TEACHER was also dc'd at that time. PT dc'd with recommendation for OP therapy but pt not sure how to get there. This SN assisted pt with a shower today due to he does not feel comfortable transferring. He did his shower and had great difficulty getting in and out of the shower. He is not safe doing this. Pt was not able to dress himself and SN assisted him with dressing. He has clean clothes available in closet but only wanted a new T shirt; he has no clean shorts and does not feel that he can manage the hancock cath without shorts.Pt looked through his dirty laundry and directed SN to the cleanest pair. No laundry has been done and pt has no one to assist. SN was also able to locate new urinary drainage bag and statlocks and these were changed today. Pt reminded that he has an appt with urologist on 09/11 at 3:15pm; he did not remember this and states that he will be out on porch for scheduled transportation. Much discusion about assisted living and pt states that give me 2 more weeks . SN questioned this and pt has no idea why 2 weeks would make a difference. I will end up in a home . Medication box was filled for this coming week. Plan to discuss with rehabilitation case coordinator and recommend that pt be on high risk call for next week for plan. Pt at very high risk for falls; he is clearly not managing his day to day needs, he is unable to do personal care and homemaking needs, unable to fill his pill media planner / buyer. He does not qualify for PASSPORT and this is not an immediate fix. See intervention summary for education details. Patient demonstrated a need for further skilled SN services for chronic disease management & education, medication education and urinary catheter care. Current Discharge plan: self-care RECOMMENDATION: Next visit to focus on (be specific): Pt to be discussed with care team and plan to be determined. [facility] Work Phone: 08-30-2024 Miscellaneous Notes SITUATION: Mcfp routine visit completed today. only patient present during today's visit. patient reports the following: Allergies--reviewed Medications--reviewed current medications Falls--None BACKGROUND: Reason for Home Care: medication management; hx of ineffective management. ASSESSMENT: SN greeted at door by patient utilizing wheelchair Patient appears in no acute distress. Patient/CG concerns verbalized today: no new concerns, pt continues to be dizzy, he is using the w/c as directed. Vitals (see flow sheet for details): stable SN findings today: Pt wheeling self in apt. he did not initially c/o much dizziness, was c/o being tired. then as pt starting conversing more, he started to c/o dizziness. He had not taken his noon meclizine yet and did this. Pt is not able to fill his med box, he reports that he has not clue. SN did this for him today and messaged rehabilitation case coordinator regarding progress of pre packaged meds. Pt reports that he has an appt for OP therapy eval on 09/19 to continue to work on balance and ambulation. SN instructed pt that home health will need to be discharged before that date. He confirmed that he does have transportation scheduled for his urology appt on 09/11. SN notes that this was done with the assistance of WAITER/WAITRESS. Pt reports that he is getting his meals-5 per week) and eats this for dinner. See intervention summary for education details. Patient demonstrated a need for further skilled SN services for chronic disease management & education and medication education. Current Discharge plan: self-care RECOMMENDATION: Next visit to focus on (be specific): med management documented in this encounter [facility] 08-30-2024 Patient's home Note SITUATION: Mcfp routine visit completed today. only patient present during today's visit. patient reports the following: Allergies--reviewed Medications--reviewed current medications Falls--None BACKGROUND: Reason for Home Care: medication management; hx of ineffective management. ASSESSMENT: SN greeted at door by patient utilizing wheelchair Patient appears in no acute distress. Patient/CG concerns verbalized today: no new concerns, pt continues to be dizzy, he is using the w/c as directed. Vitals (see flow sheet for details): stable SN findings today: Pt wheeling self in apt. he did not initially c/o much dizziness, was c/o being tired. then as pt starting conversing more, he started to c/o dizziness. He had not taken his noon meclizine yet and did this. Pt is not able to fill his med box, he reports that he has not clue. SN did this for him today and messaged rehabilitation case coordinator regarding progress of pre packaged meds. Pt reports that he has an appt for OP therapy eval on 09/19 to continue to work on balance and ambulation. SN instructed pt that home health will need to be discharged before that date. He confirmed that he does have transportation scheduled for his urology appt on 09/11. SN notes that this was done with the assistance of WAITER/WAITRESS. Pt reports that he is getting his meals-5 per week) and eats this for dinner. See intervention summary for education details. Patient demonstrated a need for further skilled SN services for chronic disease management & education and medication education. Current Discharge plan: self-care RECOMMENDATION: Next visit to focus on (be specific): med management [facility] Work Phone: 08-29-2024 Miscellaneous Notes 08/29/24 12;15 PM - 12:18 PM WAITER/WAITRESS called the pt. regarding WAITER/WAITRESS spoke to Pavan Tube Coremaker with [facility] and she informed WAITER/WAITRESS that he had an assessment on 08/08/24. She stated he. stated he was over assets for PASSPORT and was put on the waiting list for Care Coordination. WAITER/WAITRESS discussed with the pt. he maybe able to get an Aide/Homemaker under Care Coordination when on the program. The pt. supportive of this and thanked WAITER/WAITRESS for her help. documented in this encounter [facility] 08-29-2024 Patient's home Note 08/29/24 12;15 PM - 12:18 PM WAITER/WAITRESS called the pt. regarding WAITER/WAITRESS spoke to Pavan Tube Coremaker with [facility] and she informed WAITER/WAITRESS that he had an assessment on 08/08/24. She stated he. stated he was over assets for PASSPORT and was put on the waiting list for Care Coordination. WAITER/WAITRESS discussed with the pt. he maybe able to get an Aide/Homemaker under Care Coordination when on the program. The pt. supportive of this and thanked WAITER/WAITRESS for her help. [facility] Work Phone: 08-29-2024 Miscellaneous Notes 08/29/24 10:59 AM - 11:02 AM WAITER/WAITRESS called Pavan Tube Coremaker with [facility] on [facility] and she informed WAITER/WAITRESS that the pt. had an assessment on 08/08/24. She stated that the pt. stated he was over assets for PASSPORT and was put on the waiting list for Care Coordination. documented in this encounter [facility] 08-29-2024 Patient's home Note 08/29/24 10:59 AM - 11:02 AM WAITER/WAITRESS called Pavan Tube Coremaker with [facility] on [facility] and she informed WAITER/WAITRESS that the pt. had an assessment on 08/08/24. She stated that the pt. stated he was over assets for PASSPORT and was put on the waiting list for Care Coordination. [facility] Work Phone: 08-28-2024 Miscellaneous Notes :54 PM - 2;23 PM WAITER/WAITRESS called the pt. regarding tranportation to outpatient therapy. WAITER/WAITRESS informed the pt. he can call [employer] under his [employer] and provided the pt. with the phone number [phone]. The pt. stated he needs transportation to Urology on 09/11/24 in [place]. WAITER/WAITRESS informed the pt. she could make a three way call and assist him to set up transportation but he has to learn how to do this. WAITER/WAITRESS made a three way call with the pt. to [employer] under [employer] and we first spoke to the virtual community organizer but then was transferred to [facility]. The pt. informed Doreen that he has an appointment 09/11/24 at [facility], [place] [address] and he stated he had to be there at 3:00 PM. Doreen asked about any special instructions and the pt. stated the last escort car driver that came did not come to back where the concrete wheelchair ramp is. She put in that they need to come to the back with the concrete wheelchair ramp. The pt. stated he could transfer into a car. Doreen informed the pt. that he will be picked up at 1:45 PM and she asked how long his appointment was. The pt. was not sure and will call back for diamond picker. She inforned the pt. to call [phone] for diamond picker and the pt. stated he has the phone number. [place] [id number]. WAITER/WAITRESS stayed on the phone with the pt. and asked him if she has heard from [facility] and he stated he did not think so. 08/28/24 2;26 PM - 2;28 PM WAITER/WAITRESS called Pavan Tube Coremaker with [facility] on A[facility] and left her a message regarding referral WAITER/WAITRESS made for the pt. 08/09/24 and he was not sure if he was contacted. WAITER/WAITRESS asked Pavan to call WAITER/WAITRESS back. 08/28/24 2:40 PM WAITER/WAITRESS spoke with Eugene Uriarte RN Case Manager regarding transportation set up for the pt. for his Urology appointment on 09/11/24. documented in this encounter [facility] 08-28-2024 Patient's home Note :54 PM - 2;23 PM WAITER/WAITRESS called the pt. regarding tranportation to outpatient therapy. WAITER/WAITRESS informed the pt. he can call [employer] under his [employer] and provided the pt. with the phone number [phone]. The pt. stated he needs transportation to Urology on 09/11/24 in [place]. MARGARITA informed the pt. she could make a three way call and assist him to set up transportation but he has to learn how to do this. MARGARITA made a three way call with the pt. to [employer] under [employer] and we first spoke to the virtual community organizer but then was transferred to [facility]. The pt. informed Doreen that he has an appointment 09/11/24 at [facility], [place] [address] and he stated he had to be there at 3:00 PM. Doreen asked about any special instructions and the pt. stated the last escort car driver that came did not come to back where the concrete wheelchair ramp is. She put in that they need to come to the back with the concrete wheelchair ramp. The pt. stated he could transfer into a car. Doreen informed the pt. that he will be picked up at 1:45 PM and she asked how long his appointment was. The pt. was not sure and will call back for diamond picker. She inforned the pt. to call [phone] for diamond picker and the pt. stated he has the phone number. D[place]en [place] [id number]. MARGARITA stayed on the phone with the pt. and asked him if she has heard from [facility] and he stated he did not think so. 08/28/24 2;26 PM - 2;28 PM MARGARITA called Pavan Tube Coremaker with [facility] and left her a message regarding referral WAITER/WAITRESS made for the pt. 08/09/24 and he was not sure if he was contacted. WAITER/WAITRESS asked Pavan to call WAITER/WAITRESS back. 08/28/24 2:40 PM WAITER/WAITRESS spoke with Eugene Uriarte RN Case Manager regarding transportation set up for the pt. for his Urology appointment on 09/11/24. [facility] Work Phone: 08-28-2024 Miscellaneous Notes 08/28/24 10:37 AM - 10:39 AM WAITER/WAITRESS called the pt. and his voicemail came on. WAITER/WAITRESS left a message that WAITER/WAITRESS was calling regarding transportation to Outpatient Therapy. WAITER/WAITRESS left her name and phone number for the pt. to call WAITER/WAITRESS back. documented in this encounter [facility] 08-28-2024 Patient's home Note 08/28/24 10:37 AM - 10:39 AM WAITER/WAITRESS called the pt. and his voicemail came on. WAITER/WAITRESS left a message that WAITER/WAITRESS was calling regarding transportation to Outpatient Therapy. WAITER/WAITRESS left her name and phone number for the pt. to call WAITER/WAITRESS back. [facility] Work Phone: 08-25-2024 Miscellaneous Notes SITUATION: Pt answered outside door in w/c. Demo ability to propel w/c throughout building and enter apt independently. only patient present during today's visit. patient reports the following since the last homecare visit: medications/allergies--no changes, no fall. patient reports I am feeling dizzy today. I have meds at the pharmacy and am waiting for them to be delivered. BACKGROUND: Diagnoses or reason for Home Care: Benign prostatic hyperplasia with lower urinary tract symptoms 07/25/24 OPERATION: Cystoscopy, Aquablation (TRANSURETHRAL WATERJET ABLATION OF PROSTATE INCLUDING CONTROL OF POST OPERATIVE BLEEDING INCLUDING US GUIDANCE, COMPLETE), Transurethral resection of the prostate, Hancock catheter placement, removal of bladder calculi Weight Bearing/Precaution Changes: no changes ASSESSMENT: Focus of visit: falls prevention, bathroom transfers, discharge instruction Occupational therapy discharged: goals achieved. Functional Performance at discharge: Feeding independence, Grooming independence, Upper body dressing independence, Lower body dressing supervision or setup assistance, Bathing supervision or setup assistance, Toileting supervision or setup assistance and Toilet Transferring supervision or setup assistance with toilet seat riser and tub/shower transfer with sup with extended tub bench, It is not anticipated that further skilled OT services will improve functional level. Pt has been taught compensatory strategies for when he has increased dizziness. he was educated on the importance of regularly taking his meds as prescribed to alleviate dizziness. Educated to not get in the shower when he is dizzy. Discussed recommendation for going to PENITENTIARY but pt is resistant to this at this time. Plan of care, goals, and discharge reviewed and agreed upon with patient/caregiver. RECOMMENDATION: Instructions include: discharged from OT and is active with SN. Post dc recommendations: continue to have assistance with IADL, ADL when he has increased dizziness. See intervention summary for intervention/education details. documented in this encounter [facility] 08-25-2024 Patient's home Note SITUATION: Pt answered outside door in w/c. Demo ability to propel w/c throughout building and enter apt independently. only patient present during today's visit. patient reports the following since the last homecare visit: medications/allergies--no changes, no fall. patient reports I am feeling dizzy today. I have meds at the pharmacy and am waiting for them to be delivered. BACKGROUND: Diagnoses or reason for Home Care: Benign prostatic hyperplasia with lower urinary tract symptoms 07/25/24 OPERATION: Cystoscopy, Aquablation (TRANSURETHRAL WATERJET ABLATION OF PROSTATE INCLUDING CONTROL OF POST OPERATIVE BLEEDING INCLUDING US GUIDANCE, COMPLETE), Transurethral resection of the prostate, Hancock catheter placement, removal of bladder calculi Weight Bearing/Precaution Changes: no changes ASSESSMENT: Focus of visit: falls prevention, bathroom transfers, discharge instruction Occupational therapy discharged: goals achieved. Functional Performance at discharge: Feeding independence, Grooming independence, Upper body dressing independence, Lower body dressing supervision or setup assistance, Bathing supervision or setup assistance, Toileting supervision or setup assistance and Toilet Transferring supervision or setup assistance with toilet seat riser and tub/shower transfer with sup with extended tub bench, It is not anticipated that further skilled OT services will improve functional level. Pt has been taught compensatory strategies for when he has increased dizziness. he was educated on the importance of regularly taking his meds as prescribed to alleviate dizziness. Educated to not get in the shower when he is dizzy. Discussed recommendation for going to PENITENTIARY but pt is resistant to this at this time. Plan of care, goals, and discharge reviewed and agreed upon with patient/caregiver. RECOMMENDATION: Instructions include: discharged from OT and is active with SN. Post dc recommendations: continue to have assistance with IADL, ADL when he has increased dizziness. See intervention summary for intervention/education details. [facility] Work Phone: 08-24-2024 Telephone encounter Note Spoke with pt and information listed below given. Pt verbalizes understanding. Zita Palmer LPN [facility] 08-24-2024 Miscellaneous Notes Spoke with pt and information listed below given. Pt verbalizes understanding. Zita Palmer LPN The following approved medication requests have been transmitted electronically. Requested Prescriptions Pending Prescriptions Disp Refills tamsulosin (FLOMAX) 0.4 mg 90 capsule 3 Sig: Take 1 capsule by mouth daily at bedtime. traZODone (DESYREL) 100 mg tablet 90 tablet 3 Sig: Take 1 tablet by mouth daily at bedtime. amLODIPine (NORVASC) 10 mg tablet 90 tablet 3 Sig: Take 1 tablet by mouth once daily. buPROPion XL (WELLBUTRIN XL) 300 mg 24 hr tablet 90 tablet 3 Sig: Take 1 tablet by mouth once daily. ferrous sulfate EC 324 mg (65 mg iron) TbEC 180 tablet 1 Sig: Take 1 tablet by mouth two times a day with meals. gabapentin (NEURONTIN) 300 mg capsule 90 capsule 3 Sig: Take 2 capsules by mouth three times a day. potassium chloride ER (KLOR-CON) 20 mEq tablet 90 tablet 1 Sig: Take 1 tablet by mouth once daily. Corrie Marinelli APRN.CNP Patient no longer wishes to use the [facility] since [employer] cannot get into his apartment building. He asked if new prescriptions could please be sent to [facility] pharmacy. Thank you, Lena Steele RPh documented in this encounter [facility] 08-24-2024 Telephone encounter Note The following approved medication requests have been transmitted electronically. Requested Prescriptions Pending Prescriptions Disp Refills tamsulosin (FLOMAX) 0.4 mg 90 capsule 3 Sig: Take 1 capsule by mouth daily at bedtime. traZODone (DESYREL) 100 mg tablet 90 tablet 3 Sig: Take 1 tablet by mouth daily at bedtime. amLODIPine (NORVASC) 10 mg tablet 90 tablet 3 Sig: Take 1 tablet by mouth once daily. buPROPion XL (WELLBUTRIN XL) 300 mg 24 hr tablet 90 tablet 3 Sig: Take 1 tablet by mouth once daily. ferrous sulfate EC 324 mg (65 mg iron) TbEC 180 tablet 1 Sig: Take 1 tablet by mouth two times a day with meals. gabapentin (NEURONTIN) 300 mg capsule 90 capsule 3 Sig: Take 2 capsules by mouth three times a day. potassium chloride ER (KLOR-CON) 20 mEq tablet 90 tablet 1 Sig: Take 1 tablet by mouth once daily. Corrie Marinelli APRN.CNP [facility] 08-24-2024 Miscellaneous Notes SITUATION: only patient present during today's visit. patient reports the following since the last homecare visit: medications/allergies--no changes, no fall. patient reports he is completing his HEP and states he is wanting to continue to improve his ambulation. BACKGROUND: Diagnoses (reason for Home Care): Benign prostatic hyperplasia with lower urinary tract symptoms 07/25/24 OPERATION: Cystoscopy, Aquablation (TRANSURETHRAL WATERJET ABLATION OF PROSTATE INCLUDING CONTROL OF POST OPERATIVE BLEEDING INCLUDING US GUIDANCE, COMPLETE), Transurethral resection of the prostate, Hancock catheter placement, removal of bladder calculi Weight Bearing/Precaution Changes: no changes ASSESSMENT: Focus of visit: P.T. DC with goals met. Patient continues to have unsteady gait and use of w/c as primary mobility, with independent transfers on his toilet and bed. Patient demonstrates further P.T. benefit and recommended outpatient P.T. to progress balance and endurance to improve ambulation distance and decrease assistance. Patient agrees. Script requested and SW consulted for transportation. Physical therapy discharged: goals achieved. Functional performance at discharge - bed mobility independent, transfers independent and ambulation supervision. Plan of care, goals, and discharge reviewed and agreed upon with patient and/or caregiver. RECOMMENDATION: Patient discharged from PT and is active with SN. Instructions to include:begin outpatient therapy post SN DC See intervention summary for intervention/education details. documented in this encounter [facility] 08-24-2024 Patient's home Note SITUATION: only patient present during today's visit. patient reports the following since the last homecare visit: medications/allergies--no changes, no fall. patient reports he is completing his HEP and states he is wanting to continue to improve his ambulation. BACKGROUND: Diagnoses (reason for Home Care): Benign prostatic hyperplasia with lower urinary tract symptoms 07/25/24 OPERATION: Cystoscopy, Aquablation (TRANSURETHRAL WATERJET ABLATION OF PROSTATE INCLUDING CONTROL OF POST OPERATIVE BLEEDING INCLUDING US GUIDANCE, COMPLETE), Transurethral resection of the prostate, Hancock catheter placement, removal of bladder calculi Weight Bearing/Precaution Changes: no changes ASSESSMENT: Focus of visit: P.T. DC with goals met. Patient continues to have unsteady gait and use of w/c as primary mobility, with independent transfers on his toilet and bed. Patient demonstrates further P.T. benefit and recommended outpatient P.T. to progress balance and endurance to improve ambulation distance and decrease assistance. Patient agrees. Script requested and SW consulted for transportation. Physical therapy discharged: goals achieved. Functional performance at discharge - bed mobility independent, transfers independent and ambulation supervision. Plan of care, goals, and discharge reviewed and agreed upon with patient and/or caregiver. RECOMMENDATION: Patient discharged from PT and is active with SN. Instructions to include:begin outpatient therapy post SN DC See intervention summary for intervention/education details. [facility] Work Phone: 08-24-2024 Telephone encounter Note Patient no longer wishes to use the [facility] since [employer] cannot get into his apartment building. He asked if new prescriptions could please be sent to [facility] pharmacy. Thank you, Lena Steele RPh [facility] 08-23-2024 Miscellaneous Notes SITUATION: Mcfp routine visit completed today. only patient present during today's visit. patient reports the following: Allergies--reviewed Medications--reviewed current medications Falls--None BACKGROUND: Reason for Home Care: medication managment, CP assessment, urinary cath assessment. ASSESSMENT: SN greeted at door by patient utilizing wheelchair Patient appears in no acute distress. Patient/CG concerns verbalized today: no new concerns, pt reports that he continues to be very dizzy. Vitals (see flow sheet for details): stable SN findings today: Pt using w/c for all mobility, he reports that aide was here to help him with a bath today. SN notes that hancock cath is draining slightly hazy light yellow urine. He saw urology PA yesterday and he wanted to remove the hancock but pt requested that he be able to keep it. PA did not remove it and wants pt to follow up with urologist in [place] for further recommendations. SN notes that he has an appt on Sep 11 at 3:[address] Quintana from [place] [facility]. SN instructed pt to contact his office, explain what happened yesterday and get instruction on whether to wait until Sep 11 or should he be seen sooner. Also instructed pt on scheduling transportation for this appt. He reports that he is not sure how to do that. SN will follow up with pt and WAITER/WAITRESS as this appt is in [place] which is outside of [employer]. Pt does not feel that he can afford to pay [employer] for this. SN filled med box; pt forgot to have someone diamond picker the Meclizine from [facility]. He has enough through tom at noon. SN left pt written instructions for putting med in the pill box when obtained. A friend stopped by during this vs to drop off dinner and milk and is willing to diamond picker for pt tomorrow. See intervention summary for education details. Patient demonstrated a need for further skilled SN services for chronic disease management & education, medication education and safety. Current Discharge plan: self-care RECOMMENDATION: Next visit to focus on (be specific): med mangement, follow up with rehabilitation case coordinator regarding prepackaged meds. documented in this encounter [facility] 08-23-2024 Patient's home Note SITUATION: Mcfp routine visit completed today. only patient present during today's visit. patient reports the following: Allergies--reviewed Medications--reviewed current medications Falls--None BACKGROUND: Reason for Home Care: medication managment, CP assessment, urinary cath assessment. ASSESSMENT: SN greeted at door by patient utilizing wheelchair Patient appears in no acute distress. Patient/CG concerns verbalized today: no new concerns, pt reports that he continues to be very dizzy. Vitals (see flow sheet for details): stable SN findings today: Pt using w/c for all mobility, he reports that aide was here to help him with a bath today. SN notes that hancock cath is draining slightly hazy light yellow urine. He saw urology PA yesterday and he wanted to remove the hancock but pt requested that he be able to keep it. PA did not remove it and wants pt to follow up with urologist in [place] for further recommendations. SN notes that he has an appt on Sep 11 at 3:[address] Quintana from [facility]. SN instructed pt to contact his office, explain what happened yesterday and get instruction on whether to wait until Sep 11 or should he be seen sooner. Also instructed pt on scheduling transportation for this appt. He reports that he is not sure how to do that. SN will follow up with pt and WAITER/WAITRESS as this appt is in [place] which is outside of [facility]. Pt does not feel that he can afford to pay [employer] for this. SN filled med box; pt forgot to have someone diamond picker the Meclizine from [facility]. He has enough through tom at noon. SN left pt written instructions for putting med in the pill box when obtained. A friend stopped by during this vs to drop off dinner and milk and is willing to diamond picker for pt tomorrow. See intervention summary for education details. Patient demonstrated a need for further skilled SN services for chronic disease management & education, medication education and safety. Current Discharge plan: self-care RECOMMENDATION: Next visit to focus on (be specific): med mangement, follow up with rehabilitation case coordinator regarding prepackaged meds. [facility] Work Phone: 08-22-2024 Note [facility] 08-22-2024 History of Present illness Narrative Images from the original note were not included. [facility] ESTABLISHED PATIENT CLINIC NOTE SERVICE DATE: August 22, 2024 NAME: Miroslava Peralta CC: Hancock removal s/p Auqablation HPI: Miroslava Peralta is a 73 year old male with a history of Urine Retention Hancock insertion occurred as planned after Aqua Ablation Surgery The patient is here now for a TOV and hancock catheter removal. Patient is requesting hancock be left in place he has concerns for urinary incontinence and worried he will ruin his mattress if he is leaking. I tried to explain the point ofd the surgery wwas to allow him to urinate on his own and hancock needs removed to be able to see if he can do so He should not have incontinence unless his bladder function is abnormal but there has been no evidence I can see of atonic bladder But I have recommended he discuss this with Dr. Quintana and reschedule with us on a Wednesday Nurse Visit and TOV once he needs the hancock removed. PROCEDURE: Did not perform a TOV. ASSESSMENT / PLAN Urine Retention - s/p Aqua Ablation > Hancock catheter remains inswelling due to patient request to keep hancock for fear of incontinence > Message sent to Dr. Quintana so he is aware. KARINA Alaniz, [place], B[place]LY documented in this encounter [facility] 08-21-2024 Telephone encounter Note The following approved medication requests have been transmitted electronically. Requested Prescriptions Pending Prescriptions Disp Refills traZODone (DESYREL) 100 mg tablet 90 tablet 3 Sig: Take 1 tablet by mouth daily at bedtime. Corrie Marinelli APRN.CNP [facility] 08-21-2024 Miscellaneous Notes The following approved medication requests have been transmitted electronically. Requested Prescriptions Pending Prescriptions Disp Refills traZODone (DESYREL) 100 mg tablet 90 tablet 3 Sig: Take 1 tablet by mouth daily at bedtime. Corrie Marinelli APRN.CNP documented in this encounter [facility] 08-18-2024 Miscellaneous Notes 08/18/24 12:56 PM - 1;18 PM WAITER/WAITRESS received a phone call from the pt. regarding transportation for his appointment with Urology on 08/22/24. The pt. stated he called [employer] and that they were closed today. WAITER/WAITRESS discussed with the pt. calling [employer] under his [employer]. WAITER/WAITRESS discussed with the pt. it may be too shor of a notice. WAITER/WAITRESS stated she could call [employer] with him on a three way call. WAITER/WAITRESS called [employer] and the pt. was providing his information for scheduling transportation. We were transferred and spoke to Vidal regarding the pt. needed transportation for 08/22/24. She informed us that they need a three day notice and were scheduling trips for 08/23/24. WAITER/WAITRESS stayed on the phone with the pt. and he stated he would figure something out. MARGARITA informed the pt. that the [place] [employer] provides transportation but he would have to pay for it. The pt. stated he would pay for it and wants to keep his appointment on 08/22/24. WAITER/WAITRESS called the [employer] [place] and made a three way call with the pt. and we spoke to Jayjay in transportation. MARGARITA stated that the pt. lives in [place] and had a Urology appointment in [place] on 08/22/24. Jayjay stated that they could transport the pt. and asked the pt. if he was in a wheelchair. The pt. stated he would be going by a wheelchair. The pt. provided Jayjay with his name. address, phone number and where his appointment was on 08/22/24. WAITER/WAITRESS asked Jayjay how much this would cost and he stated it would cost $59.62 and the pt. stated that was fine. The pt. asked that they come to the back door where the pt. wheelchair ramp is. Jayjay stated they will and the pt. stated he would be at the back door. Jayjay informed the pt. they would pick him up at 1:30 PM on . The pt. asked if he could pay them with a check and Jayjay informed the pt he could. MARGARITA stayed on the phone with the pt. and asked him if he received his Home Delivered Meals today and he stated that he received 5 meals. MARGARITA asked the pt. about having groceries and he stated he was fine. MARGARITA asked the pt. if he had heard from [facility] yet and he stated he had not. MARGARITA discussed with the pt. that WAITER/WAITRESS left him written information when she saw him on [employer] and contact information. The pt. stated he should have it. The pt. stated he found his check book while talking to WAITER/WAITRESS to pay [facility]. The pt. thanked WAITER/WAITRESS for her help. WAITER/WAITRESS informed the pt. to call WAITER/WAITRESS with any needs. documented in this encounter [facility] 08-18-2024 Patient's home Note 08/18/24 12:56 PM - 1;18 PM WAITER/WAITRESS received a phone call from the pt. regarding transportation for his appointment with Urology on 08/22/24. The pt. stated he called [employer] and that they were closed today. WAITER/WAITRESS discussed with the pt. calling [employer] under his [employer]. WAITER/WAITRESS discussed with the pt. it may be too shor of a notice. WAITER/WAITRESS stated she could call [employer] with him on a three way call. WAITER/WAITRESS called [employer] and the pt. was providing his information for scheduling transportation. We were transferred and spoke to Vidal regarding the pt. needed transportation for 08/22/24. She informed us that they need a three day notice and were scheduling trips for 08/23/24. WAITER/WAITRESS stayed on the phone with the pt. and he stated he would figure something out. WAITER/WAITRESS informed the pt. that the [facility] provides transportation but he would have to pay for it. The pt. stated he would pay for it and wants to keep his appointment on 08/22/24. WAITER/WAITRESS called the [facility] and made a three way call with the pt. and we spoke to Jayjay in transportation. WAITER/WAITRESS stated that the pt. lives in [place] and had a Urology appointment in [place] on 08/22/24. aJyjay stated that they could transport the pt. and asked the pt. if he was in a wheelchair. The pt. stated he would be going by a wheelchair. The pt. provided Jayjay with his name. address, phone number and where his appointment was on 08/22/24. WAITER/WAITRESS asked Jayjay how much this would cost and he stated it would cost $59.62 and the pt. stated that was fine. The pt. asked that they come to the back door where the pt. wheelchair ramp is. Jayjay stated they will and the pt. stated he would be at the back door. Jayjay informed the pt. they would pick him up at 1:30 PM on . The pt. asked if he could pay them with a check and Jayjay informed the pt he could. WAITER/WAITRESS stayed on the phone with the pt. and asked him if he received his Home Delivered Meals today and he stated that he received 5 meals. WAITER/WAITRESS asked the pt. about having groceries and he stated he was fine. WAITER/WAITRESS asked the pt. if he had heard from [facility] yet and he stated he had not. WAITER/WAITRESS discussed with the pt. that WAITER/WAITRESS left him written information when she saw him on [employer] and contact information. The pt. stated he should have it. The pt. stated he found his check book while talking to WAITER/WAITRESS to pay [employer]. The pt. thanked WAITER/WAITRESS for her help. WAITER/WAITRESS informed the pt. to call WAITER/WAITRESS with any needs. T [facility] Work Phone: 08-17-2024 Telephone encounter Note The following approved medication requests have been transmitted electronically. Requested Prescriptions Pending Prescriptions Disp Refills amLODIPine (NORVASC) 10 mg tablet 90 tablet 3 Sig: Take 1 tablet by mouth once daily. buPROPion XL (WELLBUTRIN XL) 300 mg 24 hr tablet 90 tablet 3 Sig: Take 1 tablet by mouth once daily. ferrous sulfate EC 324 mg (65 mg iron) TbEC 180 tablet 1 Sig: Take 1 tablet by mouth two times a day with meals. Corrie Marinelli APRN.MYRA [facility] 08-17-2024 Miscellaneous Notes The following approved medication requests have been transmitted electronically. Requested Prescriptions Pending Prescriptions Disp Refills amLODIPine (NORVASC) 10 mg tablet 90 tablet 3 Sig: Take 1 tablet by mouth once daily. buPROPion XL (WELLBUTRIN XL) 300 mg 24 hr tablet 90 tablet 3 Sig: Take 1 tablet by mouth once daily. ferrous sulfate EC 324 mg (65 mg iron) TbEC 180 tablet 1 Sig: Take 1 tablet by mouth two times a day with meals. Corrie Marinelli APRN.CNP Prescription Refill Information The patient has been identified by name and date of : Yes Caregiver verified no other encounters exist for this prescription request: Yes Caregiver confirmed with patient/requestor that no other refills are due, in the near future, with this provider at this time: Yes The last office visit in the department: 07/10/24 Does the patient have a future office visit with this provider/department: Yes 10/09/24 Requested Prescriptions Pending Prescriptions Disp Refills amLODIPine (NORVASC) 10 mg tablet 90 tablet 3 Sig: Take 1 tablet by mouth once daily. buPROPion XL (WELLBUTRIN XL) 300 mg 24 hr tablet 90 tablet 3 Sig: Take 1 tablet by mouth once daily. ferrous sulfate EC 324 mg (65 mg iron) TbEC 180 tablet 1 Sig: Take 1 tablet by mouth two times a day with meals. Lauren Sarmiento LPN August 17, 2024 2:15 PM documented in this encounter [facility] 08-17-2024 Telephone encounter Note Both were filled. [facility] 08-17-2024 Miscellaneous Notes Both were filled. Prescription Refill Information The patient has been identified by name and date of : Yes Caregiver verified no other encounters exist for this prescription request: Yes Caregiver confirmed with patient/requestor that no other refills are due, in the near future, with this provider at this time: Yes The last office visit in the department: 07/10/24 Does the patient have a future office visit with this provider/department: Yes 10/09/24 Requested Prescriptions Pending Prescriptions Disp Refills potassium chloride ER (KLOR-CON) 20 mEq tablet 90 tablet 1 Sig: Take 1 tablet by mouth once daily. gabapentin (NEURONTIN) 300 mg capsule 540 capsule 0 Sig: Take 2 capsules by mouth three times a day for 90 days. Lauren Sarmiento LPN August 17, 2024 2:17 PM documented in this encounter [facility] 08-17-2024 Telephone encounter Note Prescription Refill Information The patient has been identified by name and date of : Yes Caregiver verified no other encounters exist for this prescription request: Yes Caregiver confirmed with patient/requestor that no other refills are due, in the near future, with this provider at this time: Yes The last office visit in the department: 07/10/24 Does the patient have a future office visit with this provider/department: Yes 10/09/24 Requested Prescriptions Pending Prescriptions Disp Refills potassium chloride ER (KLOR-CON) 20 mEq tablet 90 tablet 1 Sig: Take 1 tablet by mouth once daily. gabapentin (NEURONTIN) 300 mg capsule 540 capsule 0 Sig: Take 2 capsules by mouth three times a day for 90 days. Lauren Sarmiento LPN August 17, 2024 2:17 PM [facility] 08-17-2024 Telephone encounter Note Prescription Refill Information The patient has been identified by name and date of : Yes Caregiver verified no other encounters exist for this prescription request: Yes Caregiver confirmed with patient/requestor that no other refills are due, in the near future, with this provider at this time: Yes The last office visit in the department: 07/10/24 Does the patient have a future office visit with this provider/department: Yes 10/09/24 Requested Prescriptions Pending Prescriptions Disp Refills amLODIPine (NORVASC) 10 mg tablet 90 tablet 3 Sig: Take 1 tablet by mouth once daily. buPROPion XL (WELLBUTRIN XL) 300 mg 24 hr tablet 90 tablet 3 Sig: Take 1 tablet by mouth once daily. ferrous sulfate EC 324 mg (65 mg iron) TbEC 180 tablet 1 Sig: Take 1 tablet by mouth two times a day with meals. Lauren Sarmiento LPN August 17, 2024 2:15 PM [facility] 08-17-2024 Telephone encounter Note Pharmacy-Reviewed Medication History Patient Name:Toshia Peralta : 1950 Patient Contact Attempt: First attempt Adherence Packing Program Accepted? Yes, patient wishes to participate. Shelby Sidhu RPh August 17, 2024 2:06 PM [facility] [phone] [facility] 08-17-2024 Miscellaneous Notes Pharmacy-Reviewed Medication History Patient Name:Toshia Peralta : 1950 Patient Contact Attempt: First attempt Adherence Packing Program Accepted? Yes, patient wishes to participate. Shelby Sidhu RPh August 17, 2024 2:06 PM [facility] [phone] documented in this encounter [facility] 08-17-2024 Miscellaneous Notes 08/17/24 12:03 PM The pt. called WAITER/WAITRESS and did not leave a message. 08/17/24 12:08 PM - 12:11 PM WAITER/WAITRESS received a phone call from the pt. The pt. stated he was calling about setting up transportation for his appointmen with Urology in [place]. WAITER/WAITRESS discussed with the pt. calling [employer]. The pt. stated he did not want to use them. WAITER/WAITRESS educated on [employer] in [facility] and the pt. wanted the phone number text to him WAITER/WAITRESS text the pt. the phone number [phone] for [facility] [employer]. WAITER/WAITRESS informed the pt. to call WAITER/WAITRESS with any needs. 08/17/24 12:40 PM - 12:42 PM WAITER/WAITRESS called the pt. regarding if he was able to call [facility] and he stated he was exhausted and needed to lay down. He stated he could call WAITER/WAITRESS later. WAITER/WAITRESS asked the pt. if he was ok and he stated he was just tired. documented in this encounter [facility] 08-17-2024 Patient's home Note 08/17/24 12:03 PM The pt. called WAITER/WAITRESS and did not leave a message. 08/17/24 12:08 PM - 12:11 PM WAITER/WAITRESS received a phone call from the pt. The pt. stated he was calling about setting up transportation for his appointmen with Urology in [place]. WAITER/WAITRESS discussed with the pt. calling [employer]. The pt. stated he did not want to use them. WAITER/WAITRESS educated on [employer] in [facility] and the pt. wanted the phone number text to him WAITER/WAITRESS text the pt. the phone number [phone] for [facility] [employer]. WAITER/WAITRESS informed the pt. to call WAITER/WAITRESS with any needs. 08/17/24 12:40 PM - 12:42 PM WAITER/WAITRESS called the pt. regarding if he was able to call [facility] and he stated he was exhausted and needed to lay down. He stated he could call WAITER/WAITRESS later. WAITER/WAITRESS asked the pt. if he was ok and he stated he was just tired. [facility] Work Phone: 08-17-2024 Miscellaneous Notes 08/17/24 9:47 AM - 9:51 AM WAITER/WAITRESS called the pt. regarding him missing his appointment this week with Urology and he stated that the transportation under his insurance did not show up. The pt. stated he just got his phone back on. The pt. stated that he has the phone number to call [employer] to set up transportation for his medical appointments. WAITER/WAITRESS asked the pt. if he got groceries and he stated he did through the [employer] [facility]. The pt. stated he did not get meals delivered last Wednesday but has enough food. The pt. statd she was laying in bed. WAITER/WAITRESS provided the pt. with her name and phone number to call WAITER/WAITRESS with any needs. 08/17/24 9:51 AM - 9:54 AM WAITER/WAITRESS called [employer] and spoke to Jyotsna regarding the pt. informed WAITER/WAITRESS he did not receive his Home Delivered Meals last Wednesday. Jyotsna stated no answer at the door. She stated that they spoke to the pt. and he informed them he was fine until his next meal delivery this Wednesday. documented in this encounter [facility] 08-17-2024 Patient's home Note 08/17/24 9:47 AM - 9:51 AM WAITER/WAITRESS called the pt. regarding him missing his appointment this week with Urology and he stated that the transportation under his insurance did not show up. The pt. stated he just got his phone back on. The pt. stated that he has the phone number to call [employer] to set up transportation for his medical appointments. WAITER/WAITRESS asked the pt. if he got groceries and he stated he did through the [facility]. The pt. stated he did not get meals delivered last Wednesday but has enough food. The pt. statd she was laying in bed. WAITER/WAITRESS provided the pt. with her name and phone number to call WAITER/WAITRESS with any needs. 08/17/24 9:51 AM - 9:54 AM WAITER/WAITRESS called [employer] and spoke to Jyotsna regarding the pt. informed WAITER/WAITRESS he did not receive his Home Delivered Meals last Wednesday. Jyotsna stated no answer at the door. She stated that they spoke to the pt. and he informed them he was fine until his next meal delivery this Wednesday. [facility] Work Phone: 08-16-2024 Telephone encounter Note The patient has been identified by name and date of : Yes Caregiver verified no other encounters exist for this prescription request: Yes Caregiver confirmed with patient/requestor that no other refills are due, in the near future, with this provider at this time: Yes The last office visit in the department: 07/10/2024 Does the patient have a future office visit with this provider/department: Yes 10/09/2024 Requested Prescriptions Pending Prescriptions Disp Refills meclizine (ANTIVERT) 12.5 mg tab 90 tablet 0 Sig: Take 1 tablet by mouth three times a day. Krysta Lopez RN August 16, 2024 4:47 PM [facility] 08-16-2024 Miscellaneous Notes The patient has been identified by name and date of : Yes Caregiver verified no other encounters exist for this prescription request: Yes Caregiver confirmed with patient/requestor that no other refills are due, in the near future, with this provider at this time: Yes The last office visit in the department: 07/10/2024 Does the patient have a future office visit with this provider/department: Yes 10/09/2024 Requested Prescriptions Pending Prescriptions Disp Refills meclizine (ANTIVERT) 12.5 mg tab 90 tablet 0 Sig: Take 1 tablet by mouth three times a day. Krysta Lopez RN August 16, 2024 4:47 PM documented in this encounter [facility] 08-16-2024 Miscellaneous Notes SITUATION: [facility] routine visit completed today. only patient present during today's visit. patient reports the following: Allergies--reviewed Medications--reviewed current medications Falls--None BACKGROUND: Reason for Home Care: medication managment issues, urinary catheter with hx of hematuria ASSESSMENT: SN greeted at door by patient utilizing wheelchair Patient appears in no acute distress. Patient/CG concerns verbalized today: no new concerns, he reports that he continues to have intermittent issues with dizziness, he has been compliant with using the w/c. Vitals (see flow sheet for details): stable SN findings today: Pt answered door using his w/c. Pt is having issues with his phone and was not able to answer to let SN in but there was a neighbor that opened entrance for this SN. Pt continues to have issues with intermittent dizziness and has been compliant with using w/c for all mobility to prevent falls. Urinary catheter in place and is draining slightly hazy light yellow urine, pt states it has not been blood tinged for the last 2 days. Pt has hancock secured to leg using tape. He reports that he had to replace the urinary drainage bag and does not have any more stat lock secure devices. SN to order for pt. Pt demonstrates compliance with meds as evidenced by the med media planner / buyer being appropriately used. Pt does not feel that he is able to fill his own pill media planner / buyer. SN did this for pt today and confirmed that the prepackaged meds are in process. Pt reports that he will resume his usual meals on wheels deliveries this Wednesday; He still has adequate food supply that was delivered last Wednesday from [employer] Urology appt has been rescheduled for 08/22. See intervention summary for education details. Patient demonstrated a need for further skilled SN services for chronic disease management & education, medication education, safety and urinary catheter care. Current Discharge plan: self-care RECOMMENDATION: Next visit to focus on (be specific): med management will be focus until pre packaged meds are in place. documented in this encounter [facility] 08-16-2024 Patient's home Note SITUATION: Mcfp routine visit completed today. only patient present during today's visit. patient reports the following: Allergies--reviewed Medications--reviewed current medications Falls--None BACKGROUND: Reason for Home Care: medication managment issues, urinary catheter with hx of hematuria ASSESSMENT: SN greeted at door by patient utilizing wheelchair Patient appears in no acute distress. Patient/CG concerns verbalized today: no new concerns, he reports that he continues to have intermittent issues with dizziness, he has been compliant with using the w/c. Vitals (see flow sheet for details): stable SN findings today: Pt answered door using his w/c. Pt is having issues with his phone and was not able to answer to let SN in but there was a neighbor that opened entrance for this SN. Pt continues to have issues with intermittent dizziness and has been compliant with using w/c for all mobility to prevent falls. Urinary catheter in place and is draining slightly hazy light yellow urine, pt states it has not been blood tinged for the last 2 days. Pt has hancock secured to leg using tape. He reports that he had to replace the urinary drainage bag and does not have any more stat lock secure devices. SN to order for pt. Pt demonstrates compliance with meds as evidenced by the med media planner / buyer being appropriately used. Pt does not feel that he is able to fill his own pill media planner / buyer. SN did this for pt today and confirmed that the prepackaged meds are in process. Pt reports that he will resume his usual meals on wheels deliveries this Wednesday; He still has adequate food supply that was delivered last Wednesday from [employer] Urology appt has been rescheduled for 08/22. See intervention summary for education details. Patient demonstrated a need for further skilled SN services for chronic disease management & education, medication education, safety and urinary catheter care. Current Discharge plan: self-care RECOMMENDATION: Next visit to focus on (be specific): med management will be focus until pre packaged meds are in place. [facility] Work Phone: 08-16-2024 Miscellaneous Notes SITUATION: Pt. seen for OBREGON Routine Visit. only patient present during today's visit. patient reports the following since the last homecare visit: medications/allergies--no changes, no fall. patient reports He's tired. He missed his urology appointment yesterday with a transport issue. He has been dressing and washing himself up as best he can. BACKGROUND: Diagnoses or reason for Home Care: admission to [facility] on 07/25/24-07/26/2024. Disciplines ordered: SN, PT, OT, and AGRICULTURAL ENGINEERING TEACHER Primary Diagnoses (reason for Home Care): Benign prostatic hyperplasia with lower urinary tract symptoms 07/25/24 OPERATION: Cystoscopy, Aquablation (TRANSURETHRAL WATERJET ABLATION OF PROSTATE INCLUDING CONTROL OF POST OPERATIVE BLEEDING INCLUDING US GUIDANCE, COMPLETE), Transurethral resection of the prostate, Hancock catheter placement, removal of bladder calculi Any one of the comorbidities from the list below may have a deleterious effect on the primary home care diagnosis. ACTIVE PROBLEM LIST Hypertension Chronic Vertigo Chronic Constipation Ddd (Degenerative Disc Disease), Lumbar Benign Prostatic Hyperplasia With Incomplete Bladder Emptying Overflow Incontinence of Urine Waldenstrom Macroglobulinemia (Hcc) Hepatitis C Associated Neuropathy (Hcc) SPECIFIC ORDERS: - Indwelling Urinary Catheter 07/25/24 [facility] 3-way Catheter 24 Fr ASSESSMENT: Focus of Visit Bathroom transfers, homemaking tasks Patient identified goals to feel better Plan of care, goals, and visit frequency reviewed and agreed upon with patient and/or caregiver. See intervention summary for intervention/education details. Current Discharge Plan: remain in community with/without caregiver support. Anticipate discharge by 08/25/2024 RECOMMENDATION: Next visit to focus on Pt. to be seen next by OTR/L for a discharge visit. documented in this encounter [facility] 08-16-2024 Patient's home Note SITUATION: Pt. seen for OBREGON Routine Visit. only patient present during today's visit. patient reports the following since the last homecare visit: medications/allergies--no changes, no fall. patient reports He's tired. He missed his urology appointment yesterday with a transport issue. He has been dressing and washing himself up as best he can. BACKGROUND: Diagnoses or reason for Home Care: admission to [facility] on 07/25/24-07/26/2024. Disciplines ordered: SN, PT, OT, and AGRICULTURAL ENGINEERING TEACHER Primary Diagnoses (reason for Home Care): Benign prostatic hyperplasia with lower urinary tract symptoms 07/25/24 OPERATION: Cystoscopy, Aquablation (TRANSURETHRAL WATERJET ABLATION OF PROSTATE INCLUDING CONTROL OF POST OPERATIVE BLEEDING INCLUDING US GUIDANCE, COMPLETE), Transurethral resection of the prostate, Hancock catheter placement, removal of bladder calculi Any one of the comorbidities from the list below may have a deleterious effect on the primary home care diagnosis. ACTIVE PROBLEM LIST Hypertension Chronic Vertigo Chronic Constipation Ddd (Degenerative Disc Disease), Lumbar Benign Prostatic Hyperplasia With Incomplete Bladder Emptying Overflow Incontinence of Urine Waldenstrom Macroglobulinemia (Hcc) Hepatitis C Associated Neuropathy (Hcc) SPECIFIC ORDERS: - Indwelling Urinary Catheter 07/25/24 [facility] 3-way Catheter 24 Fr ASSESSMENT: Focus of Visit Bathroom transfers, homemaking tasks Patient identified goals to feel better Plan of care, goals, and visit frequency reviewed and agreed upon with patient and/or caregiver. See intervention summary for intervention/education details. Current Discharge Plan: remain in community with/without caregiver support. Anticipate discharge by 08/25/2024 RECOMMENDATION: Next visit to focus on Pt. to be seen next by OTR/L for a discharge visit. [facility] Work Phone: 08-15-2024 Miscellaneous Notes SITUATION: only pateint present during today's visit. patient reports the following since the last homecare visit: medications/allergies--no changes, no fall. patient reports that he is not dizzy today. Reports that the dizzy pills seem to be helping . Pt reports that his ride never showed up this am so he missed his urology appt Discussed with pt that he knows the therapy exercises and it is not a skilled need to continue to come and walk him. AIRCRAFT STRUCTURAL REPAIRER made a referral for [facility] for a AGRICULTURAL ENGINEERING TEACHER . Advised him that a AGRICULTURAL ENGINEERING TEACHER could walk with him daily . Will progress to PT d/c next visit. BACKGROUND: Diagnoses (reason for Home Care): Benign prostatic hyperplasia with lower urinary tract symptoms 07/25/24 OPERATION: Cystoscopy, Aquablation (TRANSURETHRAL WATERJET ABLATION OF PROSTATE INCLUDING CONTROL OF POST OPERATIVE BLEEDING INCLUDING US GUIDANCE, COMPLETE), Transurethral resection of the prostate, Hancock catheter placement, removal of bladder calculi Weight Bearing/Precaution Changes: no changes ASSESSMENT: Focus of visit modified treatment today to seated and stand LE strength. Gait with Walker cga and close w/c follow Plan of care, goals, and visit frequency reviewed and agreed upon with patient and/or caregiver. Current Discharge Plan: independent with home exercise program Anticipate discharge by TBD RECOMMENDATION: Next visit to focus on standing exercises and increase gait distance if able See intervention summary for intervention/education details. documented in this encounter [facility] 08-15-2024 Patient's home Note SITUATION: only pateint present during today's visit. patient reports the following since the last homecare visit: medications/allergies--no changes, no fall. patient reports that he is not dizzy today. Reports that the dizzy pills seem to be helping . Pt reports that his ride never showed up this am so he missed his urology appt Discussed with pt that he knows the therapy exercises and it is not a skilled need to continue to come and walk him. AIRCRAFT STRUCTURAL REPAIRER made a referral for [facility] for a AGRICULTURAL ENGINEERING TEACHER . Advised him that a AGRICULTURAL ENGINEERING TEACHER could walk with him daily . Will progress to PT d/c next visit. BACKGROUND: Diagnoses (reason for Home Care): Benign prostatic hyperplasia with lower urinary tract symptoms 07/25/24 OPERATION: Cystoscopy, Aquablation (TRANSURETHRAL WATERJET ABLATION OF PROSTATE INCLUDING CONTROL OF POST OPERATIVE BLEEDING INCLUDING US GUIDANCE, COMPLETE), Transurethral resection of the prostate, Hancock catheter placement, removal of bladder calculi Weight Bearing/Precaution Changes: no changes ASSESSMENT: Focus of visit modified treatment today to seated and stand LE strength. Gait with Walker cga and close w/c follow Plan of care, goals, and visit frequency reviewed and agreed upon with patient and/or caregiver. Current Discharge Plan: independent with home exercise program Anticipate discharge by TBD RECOMMENDATION: Next visit to focus on standing exercises and increase gait distance if able See intervention summary for intervention/education details. [facility] Work Phone: 08-11-2024 Miscellaneous Notes SITUATION: Mcfp routine visit completed today. only patient present during today's visit. patient reports the following: Allergies--reviewed Medications--reviewed current medications Falls--None BACKGROUND: Reason for Home Care: med management, home safety, CP check, urinary assessment. ASSESSMENT: SN greeted at door by patient utilizing wheelchair Patient appears in no acute distress. Patient/CG concerns verbalized today: no new concerns Vitals (see flow sheet for details): stable SN findings today: Pt mobile in w/c in his apt. He reports that the dizziness is still present but more intermittent today. He is only using the w/c and denies any falls. He reports that [place] was not able to take him to the bank or grocery store yesterday but they were able to do a one time shopping trip for him on a special program that he did not have to pay for. He states that he got a call from [employer] and they could not deliver today but will next week. Pt is thankful that [employer] came through for him as he will have enough groceries to make it until [employer] will resume. See intervention summary for education details. Patient demonstrated a need for further skilled SN services for chronic disease management & education, medication education and safety. Current Discharge plan: self-care RECOMMENDATION: Next visit to focus on (be specific): med management, fill pill box, CP check, urinary management. documented in this encounter [facility] 08-11-2024 Patient's home Note SITUATION: Mcfp routine visit completed today. only patient present during today's visit. patient reports the following: Allergies--reviewed Medications--reviewed current medications Falls--None BACKGROUND: Reason for Home Care: med management, home safety, CP check, urinary assessment. ASSESSMENT: SN greeted at door by patient utilizing wheelchair Patient appears in no acute distress. Patient/CG concerns verbalized today: no new concerns Vitals (see flow sheet for details): stable SN findings today: Pt mobile in w/c in his apt. He reports that the dizziness is still present but more intermittent today. He is only using the w/c and denies any falls. He reports that [place] was not able to take him to the bank or grocery store yesterday but they were able to do a one time shopping trip for him on a special program that he did not have to pay for. He states that he got a call from [employer] and they could not deliver today but will next week. Pt is thankful that [place] came through for him as he will have enough groceries to make it until [employer] will resume. See intervention summary for education details. Patient demonstrated a need for further skilled SN services for chronic disease management & education, medication education and safety. Current Discharge plan: self-care RECOMMENDATION: Next visit to focus on (be specific): med management, fill pill box, CP check, urinary management. [facility] Work Phone: 08-09-2024 Note Addended by: ABENA BECKFORD on: 08/09/2024 03:43 PM Modules accepted: Orders [facility] 08-09-2024 Miscellaneous Notes Addended by: ABENA BECKFORD on: 08/09/2024 03:43 PM Modules accepted: Orders Referral placed. Please let me know if this is not the correct referral, as this was the closest thing I could find. 08/09/24 The patient would like a referral to [facility] to get his medicine prepackaged. WAITER/WAITRESS has spoke to [facility] and they saw the patient. Referral made to the [facility] for the patient to get his groceries delivered. MARGARITA made a referral to [facility]. WAITER/WAITRESS assisted the patient to set up transportation under [employer] for his appointment 08/15/24 with Urology. Thank You, documented in this encounter [facility] 08-09-2024 Telephone encounter Note Referral placed. Please let me know if this is not the correct referral, as this was the closest thing I could find. [facility] 08-09-2024 Telephone encounter Note 08/09/24 The patient would like a referral to [facility] to get his medicine prepackaged. WAITER/WAITRESS has spoke to [facility] and they saw the patient. Referral made to the [facility] for the patient to get his groceries delivered. WAITER/WAITRESS made a referral to [facility]. WAITER/WAITRESS assisted the patient to set up transportation under [employer] for his appointment 08/15/24 with Urology. Thank You, [facility] Work Phone: 08-09-2024 Miscellaneous Notes 08/09/24 WAITER/WAITRESS received a message from Eugene Uriarte RN Case Manager regarding the pt. getting his meds [facility]ged [facility]. WAITER/WAITRESS informed Dione that when WAITER/WAITRESS saw the pt. he did not want prepacakged meds. He stated he receives his meds in the mail. 08/09/24 2:26 PM - 2:30 PM WAITER/WAITRESS called the pt. regarding how he was doing and he stated he was not feeling as well today. WAITER/WAITRESS discussed with the pt. regarding getting his meds prepackaged and sent to him and the pt. supportive of this. WAITER/WAITRESS asked the pt. about his food and he stated he has enough food. WAITER/WAITRESS asked the pt. if he had heard from the [facility] and he stated he did and someone was out to see him. He stated he is to get food delivered in August. WAITER/WAITRESS asked the pt. if he had ever heard from [facility] and he stated that he has not. WAITER/WAITRESS educated the pt. that WAITER/WAITRESS could make a referral to see if he was eligible for possibly Care Coordination for an Aide. The pt. supportive for WAITER/WAITRESS to make a referral to [facility]. WAITER/WAITRESS informed the pt. that he would have to go to Social Security or get online to get a new social security card. The pt. stated he would have to look into. WAITER/WAITRESS asked the pt. if he wanted WAITER/WAITRESS to talk to carey and he stated not at this time. He stated he was resting. WAITER/WAITRESS stated she would continue to follow-up. 08/09/24 2:38 PM - 2:44 PM WAITER/WAITRESS called the [facility] in [place] and spoke to Becky regarding if someone was out to see the pt. regardind delivering food. Becky stated that they have a Ashleigh and that Ar in [facility] may have went and saw the pt. She stated she was over the [facility] and could call WAITER/WAITRESS back regarding this. Becky stated that they do see the pt.'s and use an iPad to order groceries and have them delivered to them. She took the pt,'s name and took WAITER/WAITRESS'A name and phone number for someone to call WAITER/WAITRESS back. 08/09/24 WAITER/WAITRESS made a referral to [facility] for the pt. 08/09/24 2:59 PM WAITER/WAITRESS spoke with Eugene Uriarte RN Case Manager that the pt. does want his meds prepackaged and WAITER/WAITRESS can message the DrAkhil regarding this. 08/09/24 WAITER/WAITRESS messaged Abena Beckford APRN.DIRECTOR OF TESTING The patient would like a referral to [facility] to get his medicine prepackaged. WAITER/WAITRESS has spoke to [facility] and they saw the patient. Referral made to the [facility] for the patient to get his groceries delivered. WAITER/WAITRESS made a referral to [facility]. WAITER/WAITRESS assisted the patient to set up transportation under [employer] for his appointment 08/15/24 with Urology. Thank You, documented in this encounter [facility] 08-09-2024 Patient's home Note 08/09/24 WAITER/WAITRESS received a message from Eugene Uriarte RN Case Manager regarding the pt. getting his meds prepacakged through [facility]. WAITER/WAITRESS informed Dione that when WAITER/WAITRESS saw the pt. he did not want prepacakged meds. He stated he receives his meds in the mail. 08/09/24 2:26 PM - 2:30 PM WAITER/WAITRESS called the pt. regarding how he was doing and he stated he was not feeling as well today. WAITER/WAITRESS discussed with the pt. regarding getting his meds prepackaged and sent to him and the pt. supportive of this. WAITER/WAITRESS asked the pt. about his food and he stated he has enough food. WAITER/WAITRESS asked the pt. if he had heard from the [employer] and he stated he did and someone was out to see him. He stated he is to get food delivered in August. WAITER/WAITRESS asked the pt. if he had ever heard from [facility] and he stated that he has not. WAITER/WAITRESS educated the pt. that WAITER/WAITRESS could make a referral to see if he was eligible for possibly Care Coordination for an Aide. The pt. supportive for WAITER/WAITRESS to make a referral to [facility]. WAITER/WAITRESS informed the pt. that he would have to go to Social Security or get online to get a new social security card. The pt. stated he would have to look into. WAITER/WAITRESS asked the pt. if he wanted [facility] and he stated not at this time. He stated he was resting. WAITER/WAITRESS stated she would continue to follow-up. 08/09/24 2:38 PM - 2:44 PM WAITER/WAITRESS called the [facility] [employer] in [place] and spoke to Becky regarding if someone was out to see the pt. regardind delivering food. Becky stated that they have a Ashleigh and that Ar in [facility] may have went and saw the pt. She stated she was over the [facility] and could call WAITER/WAITRESS back regarding this. Becky stated that they do see the pt.'s and use an iPad to order groceries and have them delivered to them. She took the pt,'s name and took WAITER/WAITRESS'A name and phone number for someone to call WAITER/WAITRESS back. 08/09/24 WAITER/WAITRESS made a referral to [facility] for the pt. 08/09/24 2:59 PM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 chronic disease management & education, medication education, wound/skin care and safety. Current Discharge plan: self-care RECOMMENDATION: Next visit to focus on (be specific): wound care, assessment, medication education/review - fill pill box (have pt complete with SN supervision) documented in this encounter [facility] 08-04-2024 Patient's home Note SITUATION: Mcfp routine visit completed today. only patient also present during today's visit. patient reports the following: Allergies--reviewed Medications--reviewed current medications Falls--None DME-Reviewed and added to chart BACKGROUND: Reason for Home Care: Benign prostatic hyperplasia with lower urinary tract symptoms 07/25/24 OPERATION: Cystoscopy, Aquablation (TRANSURETHRAL WATERJET ABLATION OF PROSTATE INCLUDING CONTROL OF POST OPERATIVE BLEEDING INCLUDING US GUIDANCE, COMPLETE), Transurethral resection of the prostate, Hancock catheter placement, removal of bladder calculi ASSESSMENT: SN greeted at door by patient utilizing wheelchair Patient appears in no acute distress. Patient/CG concerns verbalized today: Pt states he keeps forgetting to take Meclizine. Reports dizziness throughout the day. SN obtained pill box and organized pills for pt this date. Pt aware not to take trazodone while on Cipro. Pt has ATB in home, but did not finish doses yet. SN organized these medications in pill box and instructed pt NOT to take trazodone until Wednesday (already in pill box) d/t Cipro needing to be complete. Pt verbalized understanding. Vitals (see flow sheet for details): stable SN findings today: Pt reports having received bath earlier today, very happy with service, states he feels good. No edema noted. Traumatic wounds on R knee healing well, no concerns. LSCOA, VSS (BP low, pt denies dizziness during this visit, reports having earlier). SN provided education regarding medications. Pt verbalized understanding. Hancock draining bloody yellow urine, pt states he is anxious to see urologist. SN informed pt that AIRCRAFT STRUCTURAL REPAIRER working on transportation. Pt received meals on wheels today but reports only 1/2 of what I usuallly get . Plan of care reviewed with pt. Falls risk and safety education provided. See intervention summary for education details. Patient demonstrated a need for further skilled SN services for chronic disease management & education, medication education, wound/skin care and safety. Current Discharge plan: self-care RECOMMENDATION: Next visit to focus on (be specific): wound care, assessment, medication education/review - fill pill box (have pt complete with SN supervision) [facility] Work Phone: 08-04-2024 Miscellaneous Notes SITUATION: only patient present during today's visit. patient reports the following since the last homecare visit: medications/allergies--no changes, no fall. patient reports the dizziness is not as bad today. . BACKGROUND: Diagnoses (reason for Home Care): Benign prostatic hyperplasia with lower urinary tract symptoms 07/25/24 OPERATION: Cystoscopy, Aquablation (TRANSURETHRAL WATERJET ABLATION OF PROSTATE INCLUDING CONTROL OF POST OPERATIVE BLEEDING INCLUDING US GUIDANCE, COMPLETE), Transurethral resection of the prostate, Hancock catheter placement, removal of bladder calculi Weight Bearing/Precaution Changes: no changes ASSESSMENT: Focus of visit performed and progressed LE strength exercises for HEP. fatigues easily w/ standing ex/ seated rest break after each ex. denies increased dizziness w/ therapy today and no noted orthostatic hypotension. encouraged patient to continue w/ proper fluid intake. Plan of care, goals, and visit frequency reviewed and agreed upon with patient and/or caregiver. Current Discharge Plan: independent with home exercise program Anticipate discharge by TBD RECOMMENDATION: Next visit to focus on add standing hams curls if able See intervention summary for intervention/education details. documented in this encounter [facility] 08-04-2024 Patient's home Note SITUATION: only patient present during today's visit. patient reports the following since the last homecare visit: medications/allergies--no changes, no fall. patient reports the dizziness is not as bad today. . BACKGROUND: Diagnoses (reason for Home Care): Benign prostatic hyperplasia with lower urinary tract symptoms 07/25/24 OPERATION: Cystoscopy, Aquablation (TRANSURETHRAL WATERJET ABLATION OF PROSTATE INCLUDING CONTROL OF POST OPERATIVE BLEEDING INCLUDING US GUIDANCE, COMPLETE), Transurethral resection of the prostate, Hancock catheter placement, removal of bladder calculi Weight Bearing/Precaution Changes: no changes ASSESSMENT: Focus of visit performed and progressed LE strength exercises for HEP. fatigues easily w/ standing ex/ seated rest break after each ex. denies increased dizziness w/ therapy today and no noted orthostatic hypotension. encouraged patient to continue w/ proper fluid intake. Plan of care, goals, and visit frequency reviewed and agreed upon with patient and/or caregiver. Current Discharge Plan: independent with home exercise program Anticipate discharge by TBD RECOMMENDATION: Next visit to focus on add standing hams curls if able See intervention summary for intervention/education details. [facility] Work Phone: 08-04-2024 Miscellaneous Notes 08/04/24 9:25 AM - 9:28 AM WAITER/WAITRESS called [facility] [phone] and spoke to Tian regarding WAITER/WAITRESS was calling regarding the pt.'s appointment 08/15/24 with Smitha Gutierrez APRN.CNP and what office the pt. was going to regarding setting up transportation for the pt. Tian stated that the pt. was coming to the [facility] - [address] [place] [id number]. 08/04/24 9:29 AM - 9:50 AM WAITER/WAITRESS called the pt. regarding he has an appointment 08/15/24 with Smitha Gutierrez APRN.CNP at the [facility] - [address] [place] [id number]. WAITER/WAITRESS asked the pt. if he would like WAITER/WAITRESS to set up transportation for this appointment under his [employer] and he stated he would. WAITER/WAITRESS stated she woul call im back. WAITER/WAITRESS called [facility] and spoke to [facility] with [employer] regarding setting up transportation for the pt. to a medical appointment on 08/15/24. Shawnee stated she would need the pt. on the phone. WAITER/WAITRESS called the pt. and asked if he would do a three way call with [facility] with [employer] under [facility] and the pt. stated he would. WAITER/WAITRESS added the pt. to the phone call and Shawnee spoke to the pt. regarding if he needed to go by wheelchair and he stated that he did but was able to transfer. She confirmed the pt.'s information and put in the correct phone number for the pt. and the pt. stated he could have text on his phone. [facility] provided Shawnee that the pt.'s appointment was on 08/15/24 at 9:30 AM with Smitha Gutierrez APRN.CNP with [facility] [place] [facility] - [address] [place] [address] and phone number [phone]. Shawnee informed the pt. that the diamond picker time was 8 AM and the pt. asked they call when they arrive. Shawnee [place] [id number] and to call back for diamond picker [phone]. WAITER/WAITRESS stayed on the phone with the pt. and he asked WAITER/WAITRESS to text him the phone number for [employer] so he can schedule transportation. He stated he was just getting up. WAITER/WAITRESS text the pt. the phone number for [employer] and his date and time of appointment and address for [facility] [place] [facility] and phoe number. WAITER/WAITRESS provided the pt. with his reservation number. documented in this encounter [facility] 08-04-2024 Patient's home Note 08/04/24 9:25 AM - 9:28 AM WAITER/WAITRESS called [facility] [phone] and spoke to Tian regarding WAITER/WAITRESS was calling regarding the pt.'s appointment 08/15/24 with Smitha Gutierrez APRN.CNP and what office the pt. was going to regarding setting up transportation for the pt. Tian stated that the pt. was coming to the [place] [facility] - [address] [place] [address]. 08/04/24 9:29 AM - 9:50 AM WAITER/WAITRESS called the pt. regarding he has an appointment 08/15/24 with Smitha Gutierrez APRN.CNP at the [place] [facility] - [address] [place] [address]. WAITER/WAITRESS asked the pt. if he would like WAITER/WAITRESS to set up transportation for this appointment under his [employer] and he stated he would. WAITER/WAITRESS stated she woul call im back. WAITER/WAITRESS called [facility] and spoke to [facility] with [employer] regarding setting up transportation for the pt. to a medical appointment on 08/15/24. Shawnee stated she would need the pt. on the phone. WAITER/WAITRESS called the pt. and asked if he would do a three way call with [facility] with [employer] under [employer] and the pt. stated he would. WAITER/WAITRESS added the pt. to the phone call and Shawnee spoke to the pt. regarding if he needed to go by wheelchair and he stated that he did but was able to transfer. She confirmed the pt.'s information and put in the correct phone number for the pt. and the pt. stated he could have text on his phone. WAITER/WAITRESS provided Shawnee that the pt.'s appointment was on 08/15/24 at 9:30 AM with Smitha Gutierrez APRN.CNP with [facility] [place] [facility] - [address] [place] [address] and phone number [phone]. Shawnee informed the pt. that the diamond picker time was 8 AM and the pt. asked they call when they arrive. Shawnee [place] [phone] and to call back for diamond picker [phone]. WAITER/WAITRESS stayed on the phone with the pt. and he asked WAITER/WAITRESS to text him the phone number for [employer] so he can schedule transportation. He stated he was just getting up. WAITER/WAITRESS text the pt. the phone number for [employer] and his date and time of appointment and address for [facility] office and [facility]. WAITER/WAITRESS provided the pt. with his reservation number. [facility] Work Phone: 08-02-2024 Telephone encounter Note Called patient. Verified name and date of . Patient scheduled in morning for follow up with Smitha Gutierrez APRN.MYRA. Appointment note: Uroflow, 2 week pvr Aquablation 07/25. Appointment cancelled for afternoon. Pamela Rashid LPN [facility] 08-02-2024 Miscellaneous Notes Called patient. Verified name and date of . Patient scheduled in morning for follow up with Smitha Gutierrez APRN.CNP. Appointment note: Uroflow, 2 week pvr Aquablation 07/25. Appointment cancelled for afternoon. Pamela Rashid LPN Patient's home care nurse calling in on behalf of patient for clarification on his Urology appts on 08/15/24. He has one in [place] and one in [place]. The one in [place] is with the nurse for a hancock catheter change. Please review and advise if patient needs both appointments, or if this can be switched to one. Patient would prefer [place] if able. Please review and advise. Fallon Hardin August 02, 2024 9:16 AM documented in this encounter [facility] 08-02-2024 Telephone encounter Note Patient's home care nurse calling in on behalf of patient for clarification on his Urology appts on 08/15/24. He has one in [place] and one in [place]. The one in [place] is with the nurse for a hancock catheter change. Please review and advise if patient needs both appointments, or if this can be switched to one. Patient would prefer [place] if able. Please review and advise. Fallon Hardin August 02, 2024 9:16 AM [facility] 08-02-2024 Miscellaneous Notes 08/02/24 8:54 AM - 8:56 AM WAITER/WAITRESS called [employer] on [facility] and spoke to Jyotsna to confirm the pt. is to receive Home Delivered Meals on Wednesday08/04/24. She stated that he is and he receives 5 frozen meals a week. 08/02/24 8:56 AM - 9:00 AM WAITER/WAITRESS called [facility] and spoke to Dione webb for the Resource Center. She could not see anything regarding the pt. being referred. WAITER/WAITRESS called back to [facility] and left a message for [employer] regarding if they received a referral for the pt. 07/26/24 when the pt. was in the hospital. WAITER/WAITRESS left her name and phone number for [employer] to call WAITER/WAITRESS back. 08/02/24 9:00 AM - 9:06 AM WAITER/WAITRESS called [employer] regarding transportation for the pt. and [employer] provides transportation and was on hold. 08/02/24 9:06 AM - 9:11 AM WAITER/WAITRESS called [facility] [place] and spoke to Eliseo regarding WAITER/WAITRESS was calling regarding the pt. has two appointments on 08/15/24 and WAITER/WAITRESS was trying to set up transportation for the pt. WAITER/WAITRESS was transferred to [place] and WAITER/WAITRESS discussed with Fallon that the pt. has two appointments on 08/15/24 with Urology and one appointment is in [place] and one in [place]. WAITER/WAITRESS informed Fallon that the pt. would rather come to [place] if able. Fallon stated she will send a message regarding the pt.'s two appointments on 08/15/24 and clarification. She stated that someone will contact the pt. 08/02/24 9:12 AM WAITER/WAITRESS called Eugene Uriarte RN Case Manager regarding WAITER/WAITRESS visit made yesterday and that WAITER/WAITRESS made a referral to [facility]. WAITER/WAITRESS discussed with Eugene regarding WAITER/WAITRESS phone call to [facility] regarding the pt. having two appointments on 08/15/24 with Urology. documented in this encounter [facility] 08-02-2024 Patient's home Note 08/02/24 8:54 AM - 8:56 AM WAITER/WAITRESS called [employer] [facility] and spoke to Jyotsna to confirm the pt. is to receive Home Delivered Meals on Wednesday08/04/24. She stated that he is and he receives 5 frozen meals a week. 08/02/24 8:56 AM - 9:00 AM WAITER/WAITRESS called [facility] and spoke to Dione webb for the Resource Center. She could not see anything regarding the pt. being referred. WAITER/WAITRESS called back to [facility] and left a message for [employer] regarding if they received a referral for the pt. 07/26/24 when the pt. was in the hospital. WAITER/WAITRESS left her name and phone number for [employer] to call WAITER/WAITRESS back. 08/02/24 9:00 AM - 9:06 AM WAITER/WAITRESS called [employer] regarding transportation for the pt. and [employer] provides transportation and was on hold. 08/02/24 9:06 AM - 9:11 AM WAITER/WAITRESS called [facility] [place] and spoke to Eliseo regarding WAITER/WAITRESS was calling regarding the pt. has two appointments on 08/15/24 and WAITER/WAITRESS was trying to set up transportation for the pt. WAITER/WAITRESS was transferred to [place] and WAITER/WAITRESS discussed with Fallon that the pt. has two appointments on 08/15/24 with Urology and one appointment is in [place] and one in [place]. WAITER/WAITRESS informed Fallon that the pt. would rather come to [place] if able. Fallon stated she will send a message regarding the pt.'s two appointments on 08/15/24 and clarification. She stated that someone will contact the pt. 08/02/24 9:12 AM WAITER/WAITRESS called Eugene Uriarte RN Case Manager regarding WAITER/WAITRESS visit made yesterday and that WAITER/WAITRESS made a referral to [facility]. WAITER/WAITRESS discussed with Eugene regarding WAITER/WAITRESS phone call to [facility] regarding the pt. having two appointments on 08/15/24 with Urology. [facility] Work Phone: 08-01-2024 Telephone encounter Note Agree. If continuing with dizziness, should have eval. Abena Beckford APRN.DIRECTOR OF TESTING [facility] 08-01-2024 Miscellaneous Notes Agree. If continuing with dizziness, should have eval. Abena Beckford APRN.DIRECTOR OF TESTING I saw patient today for PT visit. Patient reporting much increase in dizziness. Today's BP readings: Baseline: 110/68 Upon standin/66 At completion of PT: 112/60 I encouraged proper hydration, nutrition and advised patient to call Dr prescott symptoms worsen. documented in this encounter [facility] 08-01-2024 Miscellaneous Notes I sent todays BP reading to Abena Beckford per her request documented in this encounter [facility] 08-01-2024 Plan of care note I sent todays BP reading to Abena Beckford per her request [facility] Work Phone: 08-01-2024 Telephone encounter Note I saw patient today for PT visit. Patient reporting much increase in dizziness. Today's BP readings: Baseline: 110/68 Upon standin/66 At completion of PT: 112/60 I encouraged proper hydration, nutrition and advised patient to call Dr prescott symptoms worsen. [facility] Work Phone: 08-01-2024 Telephone encounter Note 08/01/24 WAITER/WAITRESS received a phone call from Vero Torres with [facility]. WAITER/WAITRESS made a referral to Vero regarding WAITER/WAITRESS saw the pt. today and he informed WAITER/WAITRESS that he lost his wallet a couple weeks ago and he does not know if anyone is using his credit card. The pt. does not have his Social Security Card or [employer] Ins card they were in his wallet. He stated he tried to call [employer] and did not have his Social Security number. The pt. informed WAITER/WAITRESS that he was missing $10,000 and thinks someone took it. The pt. informed WAITER/WAITRESS that he has a safe in his apt. and he pointed at it and it had a chain and lock on it. The pt. stated he could not find the lock. MARGARITA asked the pt. about WAITER/WAITRESS calling his daughter or ex-. He stated that they both lived in [place]. He did not want WAITER/WAITRESS to call either of them. The pt. stated his daughter had four children and was and she works. MARGARITA informed Vero that WAITER/WAITRESS discussed PASSPORT with the pt. and he stated he had $20,000 in the bank. WAITER/WAITRESS discussed with the pt. hiring an Aide/Homemaker and he stated he was too cheap. WAITER/WAITRESS discussed with the pt. how he gets his groceries and he stated he eats Meals on Wheels. The pt. gets about in a wheelchair and has a catheter. MARGARITA informed Vero that the pt. missed his appointmenst yesterday with the Urologist. The pt. needs transportation and WAITER/WAITRESS educated on him on [employer] providing transportation and [employer]. WAITER/WAITRESS discussed the pt. has a friend Jocelin Dupree listed and the pt. stated he did not want her contacted. The pt. stated her and her helped him move. The pt. discussed missing things since he moved. The pt. unsure when he moved into his current apt. and he thinks it was in 2021. MARGARITA informed Vero that the pt. knew the month, year and thought is was the but very vague about other information. Vero took the referral and stated she would see the pt. regarding exploitation. She took the name and phone number of his daughter Ailin Villalta who is his Medical POA and the name and phone number for his ex- Saima Peralta. MARGARITA will continue to coordinate with Vero. Thank You, T [facility] Work Phone: 08-01-2024 Miscellaneous Notes 08/01/24 MARGARITA received a phone call from Vero Torres with [facility]. MARGARITA made a referral to Vero regarding WAITER/WAITRESS saw the pt. today and he informed WAITER/WAITRESS that he lost his wallet a couple weeks ago and he does not know if anyone is using his credit card. The pt. does not have his Social Security Card or [employer] Ins card they were in his wallet. He stated he tried to call [employer] and did not have his Social Security number. The pt. informed WAITER/WAITRESS that he was missing $10,000 and thinks someone took it. The pt. informed WAITER/WAITRESS that he has a safe in his apt. and he pointed at it and it had a chain and lock on it. The pt. stated he could not find the lock. WAITER/WAITRESS asked the pt. about WAITER/WAITRESS calling his daughter or ex-. He stated that they both lived in [place]. He did not want WAITER/WAITRESS to call either of them. The pt. stated his daughter had four children and was and she works. WAITER/WAITRESS informed Vero that WAITER/WAITRESS discussed PASSPORT with the pt. and he stated he had $20,000 in the bank. WAITER/WAITRESS discussed with the pt. hiring an Aide/Homemaker and he stated he was too cheap. WAITER/WAITRESS discussed with the pt. how he gets his groceries and he stated he eats Meals on Wheels. The pt. gets about in a wheelchair and has a catheter. WAITER/WAITRESS informed Vero that the pt. missed his appointmenst yesterday with the Urologist. The pt. needs transportation and WAITER/WAITRESS educated on him on [employer] providing transportation and [employer]. WAITER/WAITRESS discussed the pt. has a friend ErendiraHellen Rosalesn listed and the pt. stated he did not want her contacted. The pt. stated her and her helped him move. The pt. discussed missing things since he moved. The pt. unsure when he moved into his current apt. and he thinks it was in 2021. WAITER/WAITRESS informed Vero that the pt. knew the month, year and thought is was the but very vague about other information. Vero took the referral and stated she would see the pt. regarding exploitation. She took the name and phone number of his daughter Ailin Villalta who is his Medical POA and the name and phone number for his ex- Saima Peralta. MARGARITA will continue to coordinate with Vero. Thank You, documented in this encounter [facility] 08-01-2024 Miscellaneous Notes 08/01/24 1:35 PM - 1:37 PM WAITER/WAITRESS called [facility] and left a message for Vero Torres to call WAITER/WAITRESS back regarding making a referral for the pt. WAITER/WAITRESS left her name and phone number. 08/01/24 1:44 PM - 1:46 PM WAITER/WAITRESS tried to reach the office of [facility] and no answer. 08/01/24 1:47 PM - 1:57 PM WAITER/WAITRESS received a phone call from Vero Torres with [facility]. WAITER/WAITRESS made a referral to Vero regarding WAITER/WAITRESS saw the pt. today and he informed WAITER/WAITRESS that he lost his wallet a couple weeks ago and he does not know if anyone is using his credit card. The pt. does not have his Social Security Card or [employer] Ins card they were in his wallet. He stated he tried to call [employer] and did not have his Social Security number. The pt. informed WAITER/WAITRESS that he was missing $10,000 and thinks someone took it. The pt. informed WAITER/WAITRESS that he has a safe in his apt. and he pointed at it and it had a chain and lock on it. The pt. stated he could not find the lock. WAITER/WAITRESS asked the pt. about WAITER/WAITRESS calling his daughter or ex-. He stated that they both lived in [place]. He did not want WAITER/WAITRESS to call either of them. The pt. stated his daughter had four children and was and she works. WAITER/WAITRESS informed Vero that WAITER/WAITRESS discussed PASSPORT with the pt. and he stated he had $20,000 in the bank. WAITER/WAITRESS discussed with the pt. hiring an Aide/Homemaker and he stated he was too cheap. WAITER/WAITRESS discussed with the pt. how he gets his groceries and he stated he eats Meals on Wheels. The pt. gets about in a wheelchair and has a catheter. WAITER/WAITRESS informed Vero that the pt. missed his appointmenst yesterday with the Urologist. The pt. needs transportation and WAITER/WAITRESS educated on him on [employer] providing transportation and [employer]. WAITER/WAITRESS discussed the pt. has a friend Jocelin Dupree listed and the pt. stated he did not want her contacted. The pt. stated her and her helped him move. The pt. discussed missing things since he moved. The pt. unsure when he moved into his current apt. and he thinks it was in 2021. WAITER/WAITRESS informed Vero that the pt. knew the month, year and thought is was the but very vague about other information. Vero took the referral and stated she would see the pt. regarding exploitation. She took the name and phone number of his daughter Ailin Villalta who is his Medical POA and the name and phone number for his ex- Saima Peralta. WAITER/WAITRESS will continue to coordinate with Vero. 08/01/24 1:57 PM - 2:00 PM WAITER/WAITRESS called [facility] and spoke to Maria E regarding the pt.'s smoke detector is beeping and may need a new battery. She asked what apartment the pt. was in and she stated she would send a [facility] this. 08/01/24 WAITER/WAITRESS messaged Abena Beckford APRN.MYRA - WAITER/WAITRESS referral to [facility]. documented in this encounter [facility] 08-01-2024 Patient's home Note 08/01/24 1:35 PM - 1:37 PM WAITER/WAITRESS called [facility] and left a message for Vero Torres to call WAITER/WAITRESS back regarding making a referral for the pt. WAITER/WAITRESS left her name and phone number. 08/01/24 1:44 PM - 1:46 PM WAITER/WAITRESS tried to reach the office of [facility] and no answer. 08/01/24 1:47 PM - 1:57 PM WAITER/WAITRESS received a phone call from Vero Torres with [facility]. WAITER/WAITRESS made a referral to Vero regarding WAITER/WAITRESS saw the pt. today and he informed WAITER/WAITRESS that he lost his wallet a couple weeks ago and he does not know if anyone is using his credit card. The pt. does not have his Social Security Card or [employer] Ins card they were in his wallet. He stated he tried to call [employer] and did not have his Social Security number. The pt. informed WAITER/WAITRESS that he was missing $10,000 and thinks someone took it. The pt. informed WAITER/WAITRESS that he has a safe in his apt. and he pointed at it and it had a chain and lock on it. The pt. stated he could not find the lock. WAITER/WAITRESS asked the pt. about WAITER/WAITRESS calling his daughter or ex-. He stated that they both lived in [place]. He did not want WAITER/WAITRESS to call either of them. The pt. stated his daughter had four children and was and she works. WAITER/WAITRESS informed Vero that WAITER/WAITRESS discussed PASSPORT with the pt. and he stated he had $20,000 in the bank. WAITER/WAITRESS discussed with the pt. hiring an Aide/Homemaker and he stated he was too cheap. WAITER/WAITRESS discussed with the pt. how he gets his groceries and he stated he eats Meals on Wheels. The pt. gets about in a wheelchair and has a catheter. WAITER/WAITRESS informed Vero that the pt. missed his appointmenst yesterday with the Urologist. The pt. needs transportation and WAITER/WAITRESS educated on him on [employer] providing transportation and [place] [employer]. WAITER/WAITRESS discussed the pt. has a friend ErendiraHellen Rosalesn listed and the pt. stated he did not want her contacted. The pt. stated her and her helped him move. The pt. discussed missing things since he moved. The pt. unsure when he moved into his current apt. and he thinks it was in 2021. WAITER/WAITRESS informed Vero that the pt. knew the month, year and thought is was the but very vague about other information. Vero took the referral and stated she would see the pt. regarding exploitation. She took the name and phone number of his daughter Ailin Villalta who is his Medical POA and the name and phone number for his ex- Saima Peralta. MARGARITA will continue to coordinate with Vero. 08/01/24 1:57 PM - 2:00 PM MARGARITA called [facility] and spoke to Maria E regarding the pt.'s smoke detector is beeping and may need a new battery. She asked what apartment the pt. was in and she stated she would [facility]. 08/01/24 WAITER/WAITRESS messaged Abena Beckford APRN.DIRECTOR OF TESTING - WAITER/WAITRESS referral to [facility]. [facility] Work Phone: 08-01-2024 Miscellaneous Notes SITUATION: only patient present during today's visit. patient reports the following since the last homecare visit: medications/allergies--no changes, no fall. patient reports he is not having a good day. Very dizzy. BACKGROUND: Diagnoses (reason for Home Care): Benign prostatic hyperplasia with lower urinary tract symptoms 07/25/24 OPERATION: Cystoscopy, Aquablation (TRANSURETHRAL WATERJET ABLATION OF PROSTATE INCLUDING CONTROL OF POST OPERATIVE BLEEDING INCLUDING US GUIDANCE, COMPLETE), Transurethral resection of the prostate, Hancock catheter placement, removal of bladder calculi Weight Bearing/Precaution Changes: falls ASSESSMENT: Focus of visit discussed orthostatic BP and instructed patient to perform ankle pumps prior to sitting/standing and throughout day. Also reviewed importanc eof proper hydrations and nutrition. Instructed patient to call Dr if dizziness worsens. Patient voiced understanding. No gait training today due to patients dizziness. Plan of care, goals, and visit frequency reviewed and agreed upon with patient and/or caregiver. Current Discharge Plan: independent with home exercise program Anticipate discharge by TBD RECOMMENDATION: Next visit to focus on gait training if safe and able to attempt See intervention summary for intervention/education details. documented in this encounter [facility] 08-01-2024 Patient's home Note SITUATION: only patient present during today's visit. patient reports the following since the last homecare visit: medications/allergies--no changes, no fall. patient reports he is not having a good day. Very dizzy. BACKGROUND: Diagnoses (reason for Home Care): Benign prostatic hyperplasia with lower urinary tract symptoms 07/25/24 OPERATION: Cystoscopy, Aquablation (TRANSURETHRAL WATERJET ABLATION OF PROSTATE INCLUDING CONTROL OF POST OPERATIVE BLEEDING INCLUDING US GUIDANCE, COMPLETE), Transurethral resection of the prostate, Hancock catheter placement, removal of bladder calculi Weight Bearing/Precaution Changes: falls ASSESSMENT: Focus of visit discussed orthostatic BP and instructed patient to perform ankle pumps prior to sitting/standing and throughout day. Also reviewed importanc eof proper hydrations and nutrition. Instructed patient to call Dr if dizziness worsens. Patient voiced understanding. No gait training today due to patients dizziness. Plan of care, goals, and visit frequency reviewed and agreed upon with patient and/or caregiver. Current Discharge Plan: independent with home exercise program Anticipate discharge by TBD RECOMMENDATION: Next visit to focus on gait training if safe and able to attempt See intervention summary for intervention/education details. [facility] Work Phone: 08-01-2024 Miscellaneous Notes SITUATION: Medical Social Work evaluation completed today. The patient present during today's visit. The patient reports the following changes since the last homecare visit: Falls--None BACKGROUND: Diagnoses (reason for Home Care): Hypertension, Chronic Vertigo, Chronic Constipation, Ddd (Degenerative Disc Disease), Lumbar, Benign Prostatic Hyperplasia With Incomplete Bladder Emptying, Overflow Incontinence of Urine, Waldenstrom Macroglobulinemia (Hcc), Hepatitis C Associated Neuropathy (Hcc). Reason for AIRCRAFT STRUCTURAL REPAIRER referral:eval and treat for Community Resources and Request for application for Financial Assistance. Family dynamics and household members: The pt. is and lives alone. He has a daughter and his ex- that live in [place]. ASSESSMENT: AIRCRAFT STRUCTURAL REPAIRER greeted at door by patient utilizing wheelchair . The patient demonstrated need for or verbalized concerns about transportation getting to his medical appointments. Comments: WAITER/WAITRESS arrived the apt. building and the pt. was at the door to let WAITER/WAITRESS into the building. The pt. gets about in a wheelchair. WAITER/WAITRESS discussed with the pt. how he gets his groceries. He stated he had friends that use to take him. He stated that he receives Meals on Wheels and they are to resume on Wednesday08/04/24. WAITER/WAITRESS asked the pt. if he had enough food and he stated that he did. He stated he had meat in the freezer,etc. WAITER/WAITRESS asked the pt. about friend Jocelin Dupree and if she assists him. He discussed her and her helped him move into his apt. He stated she would assist him but he does not want anyone to contact her. WAITER/WAITRESS educated the pt. on [facility] on Aging for PASSPORT to get an Aide/Homemaker, Home Delivered Meals and ER Medical Alert. The pt. stated he was over assets for PASSPORT. The pt. stated he could use assist to clean his apt. WAITER/WAITRESS asked the pt. about doing his laundry. There was a basket of clean clothes sitting on his floor. The pt. stated he does his laundry but waits until he has alot to wash. WAITER/WAITRESS educated the pt. on Agencies to hire an Aide and WAITER/WAITRESS discussed the hourly rates and hourly minimums. The pt. stated he was to cheap and was not paying that. WAITER/WAITRESS discussed with the pt. [facility] and Assisted Living. The pt. stated he did not want [facility] placement or to go into Assisted Living. WAITER/WAITRESS asked the pt. if he socializes with other people in his apt. building. The pt. stated he does not socialize much. He stated I like being by myself. The pt. discussed that his daughter and ex- wanted him to move to [place] and he stated he had to decide quickly and decided he did not want to move. WAITER/WAITRESS discussed with the pt. regarding him getting to his medical appointments. The pt. stated he thought we provided transportation. WAITER/WAITRESS informed the pt. that Home Care does not provide transportation. WAITER/WAITRESS informed the pt. that his [employer] Medicare may provide transportation to his medical apoointments. WAITER/WAITRESS stated that he could call the number on the back of his [employer] card. The pt. stated he did not have his [employer] card and stated that he lost his wallet a couple weeks ago and he does not know if anyone is using his credit card. The pt. does not have his Social Security Card or [employer] Ins card they were in his wallet. He stated he tried to call [employer] and did not have his Social Security number. The pt. informed WAITER/WAITRESS that he was missing $10,000 and thinks someone took it. The pt. informed WAITER/WAITRESS that he has a safe in his apt. and he pointed at it and it had a chain and lock on it. The pt. stated he could not find the mcdaniels for the lock. WAITER/WAITRESS asked the pt. about WAITER/WAITRESS calling his daughter or ex-. He stated that they both lived in [place]. He did not want WAITER/WAITRESS to call either of them. The pt. stated his daughter had four children and was and she works. The pt. stated Jocelin Dupree and her helped him move. The pt. discussed missing things since he moved. WAITER/WAITRESS educated the pt. on [facility] and that WAITER/WAITRESS was making a referral do to possible exploitation and him stating his concern of money being taken from him. WAITER/WAITRESS discussed with the pt. concerns of his home safety and limited help with his care. WAITER/WAITRESS educated the pt. on [facility] Transportation through [employer] and provided written information. WAITER/WAITRESS provided the pt. contact information for [facility] regarding transportation to medical appointments. WAITER/WAITRESS discussed that he needs to call at least 2-3 days in [facility] to schedule transportation under [facility]. RECOMMENDATIONS: Recommended the following services: [facility], [facility] on [facility]ging & Dis[facility], Agencies to hire an Aide/Homemaker, Transportation in [facility], His Human Medicare may provide transportation to medical appointments. Referrals made to: [facility], WAITER/WAITRESS called [facility] and spoke to Maria E regarding the pt.'s smoke detector is beeping and may need a new battery. She asked what apartment the pt. was in and she stated she would send a message for [facility] to look into this. WAITER/WAITRESS will follow-up on transportation for the pt. to medical appointments. Written information provided: [facility] & [facility], information on Transportation in [facility] and contact information for [facility] to set up transportation. Response to recommendations: patient agreeable for WAITER/WAITRESS to call [facility] regarding his smoke detector beeping. WAITER/WAITRESS made the pt. aware that she was making a referral to [facility] regarding safety concerns and possible exploitation. Medical social work provided support services in order to ensure a safe and appropriate discharge plan. If care team members have any additional concerns identified in the home, please notify AIRCRAFT STRUCTURAL REPAIRER for follow up. AIRCRAFT STRUCTURAL REPAIRER provided name and number to patient for follow up if/when needed. Team/Physician updated:08/01/24 WAITER/WAITRESS messaged Abena Beckford APRN.CNP - WAITER/WAITRESS received a phone call from Vero Torres with [facility]. WAITER/WAITRESS made a referral to Vero regarding WAITER/WAITRESS saw the pt. today and he informed WAITER/WAITRESS that he lost his wallet a couple weeks ago and he does not know if anyone is using his credit card. The pt. does not have his Social Security Card or [employer] Ins card they were in his wallet. He stated he tried to call [employer] and did not have his Social Security number. The pt. informed WAITER/WAITRESS that he was missing $10,000 and thinks someone took it. The pt. informed WAITER/WAITRESS that he has a safe in his apt. and he pointed at it and it had a chain and lock on it. The pt. stated he could not find the lock. WAITER/WAITRESS asked the pt. about WAITER/WAITRESS calling his daughter or ex-. He stated that they both lived in [place]. He did not want WAITER/WAITRESS to call either of them. The pt. stated his daughter had four children and was and she works. WAITER/WAITRESS informed Vero that WAITER/WAITRESS discussed PASSPORT with the pt. and he stated he had $20,000 in the bank. WAITER/WAITRESS discussed with the pt. hiring an Aide/Homemaker and he stated he was too cheap. WAITER/WAITRESS discussed with the pt. how he gets his groceries and he stated he eats Meals on Wheels. The pt. gets about in a wheelchair and has a catheter. WAITER/WAITRESS informed Vero that the pt. missed his appointmenst yesterday with the Urologist. The pt. needs transportation and WAITER/WAITRESS educated on him on [employer] providing transportation and [employer]. WAITER/WAITRESS discussed the pt. has a friend Jocelin Dupree listed and the pt. stated he did not want her contacted. The pt. stated her and her helped him move. The pt. discussed missing things since he moved. The pt. unsure when he moved into his current apt. and he thinks it was in 2021. WAITER/WAITRESS informed Vero that the pt. knew the month, year and thought is was the 11 but very vague about other information. Vero took the referral and stated she would see the pt. regarding exploitation. She took the name and phone number of his daughter Ailin Villalta who is his Medical POA and the name and phone number for his ex- Saima Peralta. MARGARITA will continue to coordinate with Vero. Thank You, documented in this encounter [facility] 08-01-2024 Patient's home Note SITUATION: Medical Social Work evaluation completed today. The patient present during today's visit. The patient reports the following changes since the last homecare visit: Falls--None BACKGROUND: Diagnoses (reason for Home Care): Hypertension, Chronic Vertigo, Chronic Constipation, Ddd (Degenerative Disc Disease), Lumbar, Benign Prostatic Hyperplasia With Incomplete Bladder Emptying, Overflow Incontinence of Urine, Waldenstrom Macroglobulinemia (Hcc), Hepatitis C Associated Neuropathy (Hcc). Reason for AIRCRAFT STRUCTURAL REPAIRER referral:eval and treat for Community Resources and Request for application for Financial Assistance. Family dynamics and household members: The pt. is and lives alone. He has a daughter and his ex- that live in [place]. ASSESSMENT: AIRCRAFT STRUCTURAL REPAIRER greeted at door by patient utilizing wheelchair . The patient demonstrated need for or verbalized concerns about transportation getting to his medical appointments. Comments: WAITER/WAITRESS arrived the apt. building and the pt. was at the door to let WAITER/WAITRESS into the building. The pt. gets about in a wheelchair. WAITER/WAITRESS discussed with the pt. how he gets his groceries. He stated he had friends that use to take him. He stated that he receives Meals on Wheels and they are to resume on Wednesday08/04/24. WAITER/WAITRESS asked the pt. if he had enough food and he stated that he did. He stated he had meat in the freezer,etc. WAITER/WAITRESS asked the pt. about friend Jocelin Dupree and if she assists him. He discussed her and her helped him move into his apt. He stated she would assist him but he does not want anyone to contact her. WAITER/WAITRESS educated the pt. on [facility] for PASSPORT to get an Aide/Homemaker, Home Delivered Meals and ER Medical Alert. The pt. stated he was over assets for [employer] for [employer]. The pt. stated he could use assist to clean his apt. WAITER/WAITRESS asked the pt. about doing his laundry. There was a basket of clean clothes sitting on his floor. The pt. stated he does his laundry but waits until he has alot to wash. WAITER/WAITRESS educated the pt. on Agencies to hire an Aide and WAITER/WAITRESS discussed the hourly rates and hourly minimums. The pt. stated he was to cheap and was not paying that. WAITER/WAITRESS discussed with the pt. [facility] and Assisted Living. The pt. stated he did not want [facility] placement or to go into Assisted Living. WAITER/WAITRESS asked the pt. if he socializes with other people in his apt. building. The pt. stated he does not socialize much. He stated I like being by myself. The pt. discussed that his daughter and ex- wanted him to move to [place] and he stated he had to decide quickly and decided he did not want to move. WAITER/WAITRESS discussed with the pt. regarding him getting to his medical appointments. The pt. stated he thought we provided transportation. WAITER/WAITRESS informed the pt. that Home Care does not provide transportation. WAITER/WAITRESS informed the pt. that his [employer] Medicare may provide transportation to his medical apoointments. WAITER/WAITRESS stated that he could call the number on the back of his [employer] card. The pt. stated he did not have his [employer] card and stated that he lost his wallet a couple weeks ago and he does not know if anyone is using his credit card. The pt. does not have his Social Security Card or [employer] Ins card they were in his wallet. He stated he tried to call [employer] and did not have his Social Security number. The pt. informed WAITER/WAITRESS that he was missing $10,000 and thinks someone took it. The pt. informed WAITER/WAITRESS that he has a safe in his apt. and he pointed at it and it had a chain and lock on it. The pt. stated he could not find the mcdaniels for the lock. WAITER/WAITRESS asked the pt. about WAITER/WAITRESS calling his daughter or ex-. He stated that they both lived in [place]. He did not want WAITER/WAITRESS to call either of them. The pt. stated his daughter had four children and was and she works. The pt. stated Erendira Dupree and her helped him move. The pt. discussed missing things since he moved. WAITER/WAITRESS educated the pt. on [facility] APS and that WAITER/WAITRESS was making a referral do to possible exploitation and him stating his concern of money being taken from him. WAITER/WAITRESS discussed with the pt. concerns of his home safety and limited help with his care. WAITER/WAITRESS educated the pt. on [facility] Transportation through [employer] and provided written information. WAITER/WAITRESS provided the pt. contact information for [facility] regarding transportation to medical appointments. WAITER/WAITRESS discussed that he needs to call at least 2-3 days in [facility] to schedule transportation under [employer]. RECOMMENDATIONS: Recommended the following services: [facility], [facility] on Aging & Disabilities-[facility], Agencies to hire an Aide/Homemaker, Transportation in [facility], His [employer] Medicare may provide transportation to medical appointments. Referrals made to: [facility], WAITER/WAITRESS called [facility] and spoke to Maria E regarding the pt.'s smoke detector is beeping and may need a new battery. She asked what apartment the pt. was in and she stated she would send a message for [facility] to look into this. WAITER/WAITRESS will follow-up on transportation for the pt. to medical appointments. Written information provided: [facility] Dis[facility]-P[employer], information on Transportation in [facility] and contact information for [facility] to set up transportation. Response to recommendations: patient agreeable for WAITER/WAITRESS to call [facility] regarding his smoke detector beeping. WAITER/WAITRESS made the pt. aware that she was making a referral to [facility] regarding safety concerns and possible exploitation. Medical social work provided support services in order to ensure a safe and appropriate discharge plan. If care team members have any additional concerns identified in the home, please notify AIRCRAFT STRUCTURAL REPAIRER for follow up. AIRCRAFT STRUCTURAL REPAIRER provided name and number to patient for follow up if/when needed. Team/Physician updated:08/01/24 WAITER/WAITRESS messaged Abena Beckford APRN.MYRA - WAITER/WAITRESS received a phone call from Vero Torres with [facility]. WAITER/WAITRESS made a referral to Vero regarding WAITER/WAITRESS saw the pt. today and he informed WAITER/WAITRESS that he lost his wallet a couple weeks ago and he does not know if anyone is using his credit card. The pt. does not have his Social Security Card or [employer] Ins card they were in his wallet. He stated he tried to call [employer] and did not have his Social Security number. The pt. informed WAITER/WAITRESS that he was missing $10,000 and thinks someone took it. The pt. informed WAITER/WAITRESS that he has a safe in his apt. and he pointed at it and it had a chain and lock on it. The pt. stated he could not find the lock. WAITER/WAITRESS asked the pt. about WAITER/WAITRESS calling his daughter or ex-. He stated that they both lived in [place]. He did not want WAITER/WAITRESS to call either of them. The pt. stated his daughter had four children and was and she works. WAITER/WAITRESS informed Vero that WAITER/WAITRESS discussed PASSPORT with the pt. and he stated he had $20,000 in the bank. WAITER/WAITRESS discussed with the pt. hiring an Aide/Homemaker and he stated he was too cheap. WAITER/WAITRESS discussed with the pt. how he gets his groceries and he stated he eats Meals on Wheels. The pt. gets about in a wheelchair and has a catheter. WAITER/WAITRESS informed Vero that the pt. missed his appointmenst yesterday with the Urologist. The pt. needs transportation and WAITER/WAITRESS educated on him on [employer] providing transportation and [employer]. WAITER/WAITRESS discussed the pt. has a friend Jocelin Dupree listed and the pt. stated he did not want her contacted. The pt. stated her and her helped him move. The pt. discussed missing things since he moved. The pt. unsure when he moved into his current apt. and he thinks it was in 2021. WAITER/WAITRESS informed Vero that the pt. knew the month, year and thought is was the but very vague about other information. Vero took the referral and stated she would see the pt. regarding exploitation. She took the name and phone number of his daughter Ailin Villalta who is his Medical POA and the name and phone number for his ex- Saima Peralta. WAITER/WAITRESS will continue to coordinate with Vero. Thank You, [facility] Work Phone: 07-31-2024 Miscellaneous Notes SITUATION: Mcfp routine visit completed today. only patient also present during today's visit. patient and caregiver reports the following: Allergies--reviewed Medications--reviewed current medications Falls--None DME-Reviewed and added to chart BACKGROUND: Reason for Home Care: hancock, wound ASSESSMENT: SN greeted at door by patient utilizing wheelchair Patient appears in no acute distress. Patient/CG concerns verbalized today: none Vitals (see flow sheet for details): stable SN findings today: Pt reports that he is doing well. Pt reporting that he did not go to urology appt today due to lack of transporation. AIRCRAFT STRUCTURAL REPAIRER visit scheduled for tomorrow to discuss needs. Hancock draining kathleen urine and pt states this is baseline for him recently. pt declined vitals as they were taken by OT today already. pt has no further questions or concerns at this time. See intervention summary for education details. Patient demonstrated a need for further skilled SN services for chronic disease management & education, wound/skin care, safety and infection control/prevention. Current Discharge plan: self-care and family support RECOMMENDATION: Next visit to focus on (be specific): hancock assessment, pt able to make it to urology appts now? documented in this encounter [facility] 07-31-2024 Patient's home Note SITUATION: Mcfp routine visit completed today. only patient also present during today's visit. patient and caregiver reports the following: Allergies--reviewed Medications--reviewed current medications Falls--None DME-Reviewed and added to chart BACKGROUND: Reason for Home Care: hancock, wound ASSESSMENT: SN greeted at door by patient utilizing wheelchair Patient appears in no acute distress. Patient/CG concerns verbalized today: none Vitals (see flow sheet for details): stable SN findings today: Pt reports that he is doing well. Pt reporting that he did not go to urology appt today due to lack of transporation. AIRCRAFT STRUCTURAL REPAIRER visit scheduled for tomorrow to discuss needs. Hancock draining kathleen urine and pt states this is baseline for him recently. pt declined vitals as they were taken by OT today already. pt has no further questions or concerns at this time. See intervention summary for education details. Patient demonstrated a need for further skilled SN services for chronic disease management & education, wound/skin care, safety and infection control/prevention. Current Discharge plan: self-care and family support RECOMMENDATION: Next visit to focus on (be specific): hancock assessment, pt able to make it to urology appts now? [facility] Work Phone: 07-31-2024 Miscellaneous Notes 07/31/24 10:02 AM - 10:06 AM WAITER/WAITRESS called the pt. regarding WAITER/WAITRESS visit and community resources. The pt. stated he does need more help in the home. He stated he has two people coming today and would like WAITER/WAITRESS to visit tomorrow. WAITER/WAITRESS visit scheduled for tomorrow at 12:00 PM. documented in this encounter [facility] 07-31-2024 Patient's home Note 07/31/24 10:02 AM - 10:06 AM WAITER/WAITRESS called the pt. regarding WAITER/WAITRESS visit and community resources. The pt. stated he does need more help in the home. He stated he has two people coming today and would like WAITER/WAITRESS to visit tomorrow. WAITER/WAITRESS visit scheduled for tomorrow at 12:00 PM. [facility] Work Phone: 07-31-2024 Miscellaneous Notes SITUATION: Pt came to the door in the w/c in no apparent distress. only patient present during today's visit. patient reports the following since the last homecare visit: medications/allergies--no changes, no fall. BACKGROUND: Diagnoses or reason for home care: admission to [facility] on 07/25/24-07/26/2024. Disciplines ordered: SN, PT, OT, and AGRICULTURAL ENGINEERING TEACHER Primary Diagnoses (reason for Home Care): Benign prostatic hyperplasia with lower urinary tract symptoms 07/25/24 OPERATION: Cystoscopy, Aquablation (TRANSURETHRAL WATERJET ABLATION OF PROSTATE INCLUDING CONTROL OF POST OPERATIVE BLEEDING INCLUDING US GUIDANCE, COMPLETE), Transurethral resection of the prostate, Hancock catheter placement, removal of bladder calculi Any one of the comorbidities from the list below may have a deleterious effect on the primary home care diagnosis. ACTIVE PROBLEM LIST Hypertension Chronic Vertigo Chronic Constipation Ddd (Degenerative Disc Disease), Lumbar Benign Prostatic Hyperplasia With Incomplete Bladder Emptying Overflow Incontinence of Urine Waldenstrom Macroglobulinemia (Hcc) Hepatitis C Associated Neuropathy (Hcc) SPECIFIC ORDERS: - Indwelling Urinary Catheter 07/25/24 [facility] 3-way Catheter 24 Fr ASSESSMENT: PLOF: Pt was Indep with ADL tasks. He was driving and was ambulating community distances without a device. 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 He was managing meds and was taking care of all IADL tasks. Social situation: Pt lives alone. Pt has a very limited social support system. Barriers: Limited support, decreased balance, orthostatic hypotension. Patient evaluated by [facility] occupational therapy. Reviewed and explained homecare services. Plan of care, goals and visit frequency developed, reviewed, and agreed upon with patient and/or caregiver. Patient identified goals: to get stronger and get back to walking. . Patient will benefit from continued occupational therapy to address the following deficits functional activity including I/ADLs and functional transfers as evidenced by score on Modified Raysa Index 45/100 indicating moderate assist required for ADL tasks Prior to surgery, patient was Indep in all I/ADLs, though due to increased pain, decreased activity tolerance, decreased balance, patient has been requiring more assistance and/or more time and effort to complete I/ADL, transfers. Without continued OT services, patient risks prolonged dependence upon caregivers for I/ADLs and potential injury leading to a longer and more difficult recovery. Current Discharge Plan:remain in community with/without caregiver support. Anticipate discharge by 08/26/24 RECOMMENDATION: Plan for next visit to focus on ADL, transfers. See intervention summary for intervention/education details. documented in this encounter [facility] 07-31-2024 Patient's home Note SITUATION: Pt came to the door in the w/c in no apparent distress. only patient present during today's visit. patient reports the following since the last homecare visit: medications/allergies--no changes, no fall. BACKGROUND: Diagnoses or reason for home care: admission to [facility] on 07/25/24-07/26/2024. Disciplines ordered: SN, PT, OT, and AGRICULTURAL ENGINEERING TEACHER Primary Diagnoses (reason for Home Care): Benign prostatic hyperplasia with lower urinary tract symptoms 07/25/24 OPERATION: Cystoscopy, Aquablation (TRANSURETHRAL WATERJET ABLATION OF PROSTATE INCLUDING CONTROL OF POST OPERATIVE BLEEDING INCLUDING US GUIDANCE, COMPLETE), Transurethral resection of the prostate, Hancock catheter placement, removal of bladder calculi Any one of the comorbidities from the list below may have a deleterious effect on the primary home care diagnosis. ACTIVE PROBLEM LIST Hypertension Chronic Vertigo Chronic Constipation Ddd (Degenerative Disc Disease), Lumbar Benign Prostatic Hyperplasia With Incomplete Bladder Emptying Overflow Incontinence of Urine Waldenstrom Macroglobulinemia (Hcc) Hepatitis C Associated Neuropathy (Hcc) SPECIFIC ORDERS: - Indwelling Urinary Catheter 07/25/24 [facility] 3-way Catheter 24 Fr ASSESSMENT: PLOF: Pt was Indep with ADL tasks. He was driving and was ambulating community distances without a device. 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 He was managing meds and was taking care of all IADL tasks. Social situation: Pt lives alone. Pt has a very limited social support system. Barriers: Limited support, decreased balance, orthostatic hypotension. Patient evaluated by [facility] occupational therapy. Reviewed and explained homecare services. Plan of care, goals and visit frequency developed, reviewed, and agreed upon with patient and/or caregiver. Patient identified goals: to get stronger and get back to walking. . Patient will benefit from continued occupational therapy to address the following deficits functional activity including I/ADLs and functional transfers as evidenced by score on Modified Raysa Index 45/100 indicating moderate assist required for ADL tasks Prior to surgery, patient was Indep in all I/ADLs, though due to increased pain, decreased activity tolerance, decreased balance, patient has been requiring more assistance and/or more time and effort to complete I/ADL, transfers. Without continued OT services, patient risks prolonged dependence upon caregivers for I/ADLs and potential injury leading to a longer and more difficult recovery. Current Discharge Plan:remain in community with/without caregiver support. Anticipate discharge by 08/26/24 RECOMMENDATION: Plan for next visit to focus on ADL, transfers. See intervention summary for intervention/education details. [facility] Work Phone: 07-30-2024 Telephone encounter Note Dear Abena and Home Care Team, Your Patient has been evaluated by PT on July 29 with the PT Visit Frequency planned for 2w2, 1w2. Current Concerns: The patient did have orthostatic hypotension upon standing with symptoms of dizziness. (Sitting BP: 115/64; Standing BP 85/55). If you have any questions or would like to give further orders, please call me at [phone]. Sincerely, America Nascimento PT [facility] Work Phone: 07-30-2024 Miscellaneous Notes Dear Abena and Home Care Team, Your Patient has been evaluated by PT on July 29 with the PT Visit Frequency planned for 2w2, 1w2. Current Concerns: The patient did have orthostatic hypotension upon standing with symptoms of dizziness. (Sitting BP: 115/64; Standing BP 85/55). If you have any questions or would like to give further orders, please call me at [phone]. Sincerely, America Nascimento PT documented in this encounter [facility] 07-29-2024 Miscellaneous Notes SITUATION: Cousin present during today's visit. patient reports the following since the last homecare visit: medications/allergies--no changes, no fall. patient reports he has been w/c bound for a few years. Patient is a poor historian but it appears spinal stenosis has caused LE weakness along with 4 surgeries to the R LE. He was recently underwent a surgical procedure for his prostrate. The patient was receiving PT services prior to the surgical procedure from a non [facility] home care agency. The patient states he does not walk unless he is with a PT. BACKGROUND: Diagnoses (reason for Home Care): Benign prostatic hyperplasia with lower urinary tract symptoms 07/25/24 OPERATION: Cystoscopy, Aquablation (TRANSURETHRAL WATERJET ABLATION OF PROSTATE INCLUDING CONTROL OF POST OPERATIVE BLEEDING INCLUDING US GUIDANCE, COMPLETE), Transurethral resection of the prostate, Hancock catheter placement, removal of bladder calculi PMH: Hypertension Chronic Vertigo Chronic Constipation Ddd (Degenerative Disc Disease), Lumbar Benign Prostatic Hyperplasia With Incomplete Bladder Emptying Overflow Incontinence of Urine Waldenstrom Macroglobulinemia (Hcc) Hepatitis C Associated Neuropathy (Hcc) Weight Bearing/Precaution Changes: fall risk ASSESSMENT: Mr. Peralta is a 73 y/o male who recently underwent a surgical procedure for his prostrate. The patient has been w/c bound due to LE weakness and R foot drop (possibly due to spinal stenosis). The patient had a recent fall where he slid off the edge of the bed and sustained rug burn on both knees when he attempted to get back up off the floor. The patient has no family nearby and reports needing assistance from apartment residents to get his groceries and to get him to/from medical appointments. He is able to exit his apartment building via his w/c and the elevator. The patient spends the majority of the day in bed due to his LBP. He has increased pain when sitting in his w/c and he is unable to get on/off his recliner/couch. The patient is able to perform w/c <> transfers independently. He can ambulate with a FWW and an AFO x 25 feet with SBA. Patient evaluated by [facility] physical therapy. Reviewed and explained homecare services. Plan of care, goals, and visit frequency developed, reviewed, and agreed upon with patient and/or caregiver. Patient Goal: walk again Rehab potential: Fair/limited due to chronic spinal/LE conditions Patient will benefit from continued physical therapy to address the following deficits: strength, balance, gait and transfers. Current Discharge Plan:independent with home exercise program. Anticipate discharge by TBD RECOMMENDATION: Next visit to focus on ambulation with a walker; transfer training. See intervention summary for intervention/education details. documented in this encounter [facility] 07-29-2024 Patient's home Note SITUATION: Cousin present during today's visit. patient reports the following since the last homecare visit: medications/allergies--no changes, no fall. patient reports he has been w/c bound for a few years. Patient is a poor historian but it appears spinal stenosis has caused LE weakness along with 4 surgeries to the R LE. He was recently underwent a surgical procedure for his prostrate. The patient was receiving PT services prior to the surgical procedure from a non [facility] home care agency. The patient states he does not walk unless he is with a PT. BACKGROUND: Diagnoses (reason for Home Care): Benign prostatic hyperplasia with lower urinary tract symptoms 07/25/24 OPERATION: Cystoscopy, Aquablation (TRANSURETHRAL WATERJET ABLATION OF PROSTATE INCLUDING CONTROL OF POST OPERATIVE BLEEDING INCLUDING US GUIDANCE, COMPLETE), Transurethral resection of the prostate, Hancock catheter placement, removal of bladder calculi PMH: Hypertension Chronic Vertigo Chronic Constipation Ddd (Degenerative Disc Disease), Lumbar Benign Prostatic Hyperplasia With Incomplete Bladder Emptying Overflow Incontinence of Urine Waldenstrom Macroglobulinemia (Hcc) Hepatitis C Associated Neuropathy (Hcc) Weight Bearing/Precaution Changes: fall risk ASSESSMENT: Mr. Peralta is a 73 y/o male who recently underwent a surgical procedure for his prostrate. The patient has been w/c bound due to LE weakness and R foot drop (possibly due to spinal stenosis). The patient had a recent fall where he slid off the edge of the bed and sustained rug burn on both knees when he attempted to get back up off the floor. The patient has no family nearby and reports needing assistance from apartment residents to get his groceries and to get him to/from medical appointments. He is able to exit his apartment building via his w/c and the elevator. The patient spends the majority of the day in bed due to his LBP. He has increased pain when sitting in his w/c and he is unable to get on/off his recliner/couch. The patient is able to perform w/c <> transfers independently. He can ambulate with a FWW and an AFO x 25 feet with SBA. Patient evaluated by [facility] physical therapy. Reviewed and explained homecare services. Plan of care, goals, and visit frequency developed, reviewed, and agreed upon with patient and/or caregiver. Patient Goal: walk again Rehab potential: Fair/limited due to chronic spinal/LE conditions Patient will benefit from continued physical therapy to address the following deficits: strength, balance, gait and transfers. Current Discharge Plan:independent with home exercise program. Anticipate discharge by TBD RECOMMENDATION: Next visit to focus on ambulation with a walker; transfer training. See intervention summary for intervention/education details. [facility] Work Phone: 07-28-2024 Telephone encounter Note Ok social services technician. Ok to stay on meds. Hold trazodone when starts cipro [facility] Work Phone: 07-28-2024 Miscellaneous Notes Ok social services technician. Ok to stay on meds. Hold trazodone when starts cipro SN MYRANDA Mcintyre Completed today. Pt does not have community resources and is having difficulty with transportation, obtaining medications, getting care needed. AIRCRAFT STRUCTURAL REPAIRER not on referral but pt would greatly benefit from their assistance. If you are in agreement, I will add AIRCRAFT STRUCTURAL REPAIRER referral order for you to sign on plan of care. OK to add? Also, medication reconciliation completed and severe interactions noted between the following medications: -meclizine and potassium chloride ER (Use of solid oral dosage forms of potassium in patients treated with anticholinergics may result in gastrointestinal erosions, ulcers, stenosis and bleeding) -ciprofloxacin HCl and traZODone (The use of trazodone in patients maintained on agents that prolong the QTc interval may result in potentially life-threatening cardiac arrhythmias, including torsades de pointes) -ciprofloxacin HCl and ferrous sulfate EC (Simultaneous administration or administration of products containing aluminum, calcium, iron, lanthanum, magnesium, and/or zinc close to the administration time of an oral quinolone may result in decreased absorption and clinical effectiveness of the quinolone.) OK for pt to continue taking as prescribed?? Pt has not picked up Cipro or Keflex from pharmacy as he does not have someone who is able to go to pharmacy for him, he states cousin is coming in town tomorrow and will diamond picker. He also does not have Miralx or Senna in home either, SN educated pt to diamond picker at pharmacy if needed. Thank you, Edenilson MCLEAN, RN documented in this encounter [facility] 07-28-2024 Telephone encounter Note SN Francisco Javier SOC Completed today. Pt does not have community resources and is having difficulty with transportation, obtaining medications, getting care needed. AIRCRAFT STRUCTURAL REPAIRER not on referral but pt would greatly benefit from their assistance. If you are in agreement, I will add AIRCRAFT STRUCTURAL REPAIRER referral order for you to sign on plan of care. OK to add? Also, medication reconciliation completed and severe interactions noted between the following medications: -meclizine and potassium chloride ER (Use of solid oral dosage forms of potassium in patients treated with anticholinergics may result in gastrointestinal erosions, ulcers, stenosis and bleeding) -ciprofloxacin HCl and traZODone (The use of trazodone in patients maintained on agents that prolong the QTc interval may result in potentially life-threatening cardiac arrhythmias, including torsades de pointes) -ciprofloxacin HCl and ferrous sulfate EC (Simultaneous administration or administration of products containing aluminum, calcium, iron, lanthanum, magnesium, and/or zinc close to the administration time of an oral quinolone may result in decreased absorption and clinical effectiveness of the quinolone.) OK for pt to continue taking as prescribed?? Pt has not picked up Cipro or Keflex from pharmacy as he does not have someone who is able to go to pharmacy for him, he states cousin is coming in town tomorrow and will diamond picker. He also does not have Miralx or Senna in home either, SN educated pt to diamond picker at pharmacy if needed. Thank you, Edenilson MCLEAN, RN [facility] Work Phone: 07-28-2024 Miscellaneous Notes SITUATION: [facility] SOC visit completed today. only patient also present during today's visit. patient reports the following: Allergies--reviewed Medications--full medication reconciliation completed Falls--None DME-Reviewed and added to chart BACKGROUND: Discharged/Referral from acute care hospital on 07/26/24 following treatment for Benign prostatic hyperplasia with lower urinary tract symptoms 07/25/24 OPERATION: Cystoscopy, Aquablation (TRANSURETHRAL WATERJET ABLATION OF PROSTATE INCLUDING CONTROL OF POST OPERATIVE BLEEDING INCLUDING US GUIDANCE, COMPLETE), Transurethral resection of the prostate, Hancock catheter placement, removal of bladder calculi. Pertinent referral information or other diagnoses that may affect plan of care: Hypertension Chronic Vertigo Chronic Constipation Ddd (Degenerative Disc Disease), Lumbar Benign Prostatic Hyperplasia With Incomplete Bladder Emptying Overflow Incontinence of Urine Waldenstrom Macroglobulinemia (Hcc) Hepatitis C Associated Neuropathy (Hcc) ASSESSMENT: SN greeted at door by patient utilizing wheelchair Patient appears in no acute distress. Patient lives at home alone. Home environment: cluttered and safety concerns: unable to exit apartment building in event of fire d/t reliant on elevator. SOC booklet reviewed & completed with patient and consent obtained for Home Care services. Patient/CG concerns verbalized today: Pt waiting during SN visit for meals on wheels delivery - SN contacted their office who report pt was stopped from program on 07/22 but then directly spoke to pt and said they have funding in [facility] and can start pt up with deliveries next Wednesday. Pt reports he has enough food until then and has cousin coming into town that wiill take him grocery shopping. SN noted pt has not picked up Keflex or Cipro from [employer] SN contacted [employer] and asked if they have delivery and they were able to deliver to pt today and requested payment of $5 over the phone via credit/debit care. Pt states he lost his wallet and cannot find, unable to provide payment. Pt reports cousin will be able to take him to diamond picker tomorrow. SN provided pt with Identified customer service number and instructed pt to contact [facility]. REQUESTED REFERRAL FOR [facility] Vitals (see flow sheet for details): stable SN findings today: Pt greeted SN at apartment entrance in wheelchair. Pt able to wheel self in wheel chair, but can be difficult d/t low endurance. Pt has dyspnea with exertion. He reports some incontinence of bowel. Hancock catheter in place with bloody urine noted, no clots. Pt has upcoming appts with Urology on Wednesday (9a and 3p). SN attempted to contact office directly to inquire about nature of this appointment and ask why 2 are scheduled as pt was under impression hancock would remain in place for a few weeks . SN also did inform urology office that it was unlikely that pt would have transportation to appt. Pt states he had friends help in the past with transportation and obtaining medications but reports they are no longer as willing to help out. Pt does not have other family nearby and does not know his neighbors well. SN instructed pt to contact Urology office on Wednesday, if unable to get transportation, and reschedule appointment. Medications reviewed - all in home except aforementioned ATBs as well as Melatonin, Miralax and Senna. Pt repots occasional constipation, fecal incontinence. Pt has some DME in bathroom to help with toileting/transfers. Pt has weakness and muscle wasting and would benefit from PT/OT. Pt reports pain with bladder spasms and uses music and breathing exercises to work through discomfort. Traumatic wounds noted to R knee r/t fall out of bed. SN educated pt on falls risk/safety precautions. Pt needs assistance with transfers, performing ADLs d/t weakness, fatigue. SN informed pt re: meclizine after pt c/o dizziness. Pt states I thought that was for pain . SN clarified with pt that Meclizine is to be taken 3x/day, pt verbalized understanding. Encouraged pt to contact [facility] with any issues/concerns that arise before next visit. See intervention summary for education details and skills performed. Plan of care and visit frequency established with patient and plan of care agreed upon. Patient demonstrated a need for further skilled SN services for chronic disease management & education, medication education, wound/skin care, safety and urinary catheter care. RECOMMENDATION: Visit Frequency: 1w1, 2w2, 1w5 Need for additional services: Patient agreeable to PT, OT, AGRICULTURAL ENGINEERING TEACHER and AIRCRAFT STRUCTURAL REPAIRER referrals. Patient declined N/A referrals. Additional concerns to be followed up on: AIRCRAFT STRUCTURAL REPAIRER - assistance with community resources, did Marbella Zaidi PA-C agree to referral? If so, place order and notify scheduling. -Did pt diamond picker ATB - Urology appt on 07/31 - did pt go or reschedule? Next visit to focus on (be specific): c/p check, assessment, medication review, safety education 1600 response from covering provider, ROLA for AIRCRAFT STRUCTURAL REPAIRER, referral placed. documented in this encounter [facility] 07-28-2024 Patient's home Note SITUATION: [facility] SOC visit completed today. only patient also present during today's visit. patient reports the following: Allergies--reviewed Medications--full medication reconciliation completed Falls--None DME-Reviewed and added to chart BACKGROUND: Discharged/Referral from acute [facility] hospital on 07/26/24 following treatment for Benign prostatic hyperplasia with lower urinary tract symptoms 07/25/24 OPERATION: Cystoscopy, Aquablation (TRANSURETHRAL WATERJET ABLATION OF PROSTATE INCLUDING CONTROL OF POST OPERATIVE BLEEDING INCLUDING US GUIDANCE, COMPLETE), Transurethral resection of the prostate, Hancock catheter placement, removal of bladder calculi. Pertinent referral information or other diagnoses that may affect plan of care: Hypertension Chronic Vertigo Chronic Constipation Ddd (Degenerative Disc Disease),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 Continue current medications - Recommend home blood pressure monitoring, to bring results to next visit - Encouraged sodium restriction, DASH or Mediterranean diet - Recommend regular aerobic exercise 6. Sleeping difficulty - ICD9: 780.50, ICD10: G47.9 Controlled w/ trazodone. 7. Chronic vertigo - ICD9: 780.4, ICD10: R42 Refill meclizine. Discussed treatment plan and patient voices understanding. Patient's questions answered appropriately. Medications and potential side effects were discussed and patient voices understanding. Return to the office as scheduled or as needed for worsening/no improvement. Abena Beckford APRN.DIRECTOR OF TESTING documented in this encounter [facility] 07-10-2024 History of Present illness Narrative ESTABLISHED PATIENT VISIT HPI Miroslava Peralta is a 73 year old male who presents with a history of BPH. Patient has a history of retention with hydronephrosis On tamsulosin H/o high PVR, B hydro PSA 2.04 10/03/23 Cysto BPH, bilobar TRUS approx 65 g Copied from prior : 02/09/2024 cystoscopy 68 gram prostate FINDINGS Urethra: Normal Sphincter: Normal / Coapted Prostate: Enlarged Lateral Lobes / Enlarged Median Lobe Bladder Neck: Patent Urothelium: normal appearing, no evidence of tumor, no erythema, no foreign body Trabeculation: Yes Inflammation: Yes, mild from catheter Diverticulum: No Ureteral Orifices: normal appearing, orthotopic position, clear efflux bilaterally Trigone: normal appearing 12/31/2023 Renal us IMPRESSION: Moderately distended urinary bladder with debris and significant post void residual. Mild-moderate RIGHT and mild LEFT hydronephrosis. Creatinine Date Value Ref Range Status 03/13/2024 1.21 0.73 - 1.22 mg/dL Final PSA Screening (ng/mL) Date Value 10/03/2013 2.04 08/03/2012 1.83 Color (no units) Date Value 12/28/2023 Yellow 01/05/2019 Yellow Clarity (no units) Date Value 12/28/2023 Clear 01/05/2019 Cloudy Glucose, Urine Date Value 12/28/2023 Negative 01/05/2019 Negative mg/dL Bilirubin, Urine (no units) Date Value 12/28/2023 Negative 01/05/2019 Negative Ketones, Urine (no units) Date Value 12/28/2023 Negative 01/05/2019 Negative Specific [place], Ur (no units) Date Value 12/28/2023 1.013 01/05/2019 1.026 Hemoglobin/Blood,Ur Date Value 12/28/2023 1+ 01/05/2019 Negative pH, Urine (no units) Date Value 12/28/2023 6.0 01/05/2019 5.0 Protein, Urine Date Value 12/28/2023 Negative 01/05/2019 Negative mg/dL Urobilinogen (no units) Date Value 12/28/2023 0.2 EU/dL 01/05/2019 Normal Nitrites (no units) Date Value 12/28/2023 Negative 01/05/2019 Negative Leukest (no units) Date Value 01/05/2019 Negative Leuk Esterase (no units) Date Value 12/28/2023 3+ 24HR Urine Studies: No results for input(s): LUPH , LUCAL , LUCIT , LUOXA , LUURIC , LUVOL , LSCAO , LSCAP , LSURIC , LUCL , CYNDI , NATHALY , LUUREA , LUAM , LUMAG , LUPHOS , LUPCR , LUCREA , LUCRKBW , LUCAKBW , LUCACREA , LUCREACL , LWK , LUSUL in the last 13739 hours. REVIEW OF SYSTEMS Review of Systems Review of system, history including past medical history, surgical history, family history and social history reviewed and confirmed by me. HISTORIES PAST MEDICAL HISTORY No date: Acute pharyngitis, unspecified No date: Acute posthemorrhagic anemia No date: Arthritis No date: 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 No date: Bilateral primary osteoarthritis of hip No date: BPH without obstruction/lower urinary tract symptoms 01/05/2019: Chronic hepatitis C without hepatic coma (HCC) Comment: 10/10/2021 Hep C not detectable 06/16/[address] Augustine. Completed treatment. 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 No date: Dysphagia, oral phase No date: Hip arthritis No date: History of transfusion No date: HTN (hypertension) Comment: Well controlled on medication--Managed by PCP No date: Hydronephrosis, unspecified hydronephrosis type No date: Insomnia, unspecified 11/22/1986: Leukocytosis Comment: [place] admission - thought leukemia and he refused tests No date: Overflow incontinence of urine No date: S/P hip replacement No date: Urine retention PAST SURGICAL HISTORY 07/25/2014: ARTHRP ACETBLR/PROX FEM PROSTC AGRFT/ALGRFT; Right Comment: Hip replacement, total, right No date: BACK SURGERY HX Comment: Lumbar spine surgery 07/16/2003: COLONOSCOPY Comment: random biopsies negative 06/27/2013: COLONOSCOPY FLX DX W/COLLJ SPEC WHEN PFRMD Comment: Colonoscopy No date: JOINT REPLACEMENT HX; Right Comment: Total shoulder-- 1997: PAST SURGICAL HISTORY OF Comment: shoulder surgery bilateral 1997: PAST SURGICAL HISTORY OF Comment: tendon repair bilat elbows. No date: SKIN BIOPSY HX FAMILY HISTORY Problem Relation Age of Onset Cancer Mother breast cancer Hypertension Mother None Father father in train accident at yuni age Hypertension Sister SOCIAL HISTORY Social History Tobacco Use Smoking status: Former Current packs/day: 0.00 Average packs/day: 2.0 packs/day for 23.0 years (46.0 ttl pk-yrs) Types: Cigarettes Start date: 11/22/1969 Quit date: 11/22/1992 Years since quittin.6 Passive exposure: Never Smokeless tobacco: Never Vaping Use Vaping status: Never Used Substance Use Topics Alcohol use: Not Currently Comment: quit in 1991. Drug use: Not Currently Comment: Quit drugs in ~. MEDICATIONS: gabapentin (NEURONTIN) 300 mg capsule^Take 2 capsules by mouth three times a day for 90 days.^Disp: 540 capsule^Rfl: 0 Blood Pressure Monitor^1 Each once daily.^Disp: 1 Each^Rfl: 0 potassium chloride ER (KLOR-CON) 20 mEq tablet^Take 1 tablet by mouth once daily.^Disp: 90 tablet^Rfl: 1 Melatonin 5 mg cap^Take 1 capsule by mouth daily at bedtime.^Disp: 90 capsule^Rfl: 3 traZODone (DESYREL) 100 mg tablet^Take 1 tablet by mouth daily at bedtime.^Disp: 90 tablet^Rfl: 3 meclizine (ANTIVERT) 12.5 mg tab^Take 1 tablet by mouth three times a day.^Disp: 90 tablet^Rfl: 0 ferrous sulfate EC 324 mg (65 mg iron) TbEC^Take 1 tablet by mouth two times a day with meals.^Disp: 180 tablet^Rfl: 1 Catheter (BARD COUDE TIP CATHETER) 16 Fr misc^ISC 2-3 x per day for urinary retention^Disp: 100 Each^Rfl: 1 tamsulosin (FLOMAX) 0.4 mg^Take 1 capsule by mouth daily at bedtime.^Disp: 90 capsule^Rfl: 0 amLODIPine (NORVASC) 10 mg tablet^Take 1 tablet by mouth once daily.^Disp: 90 tablet^Rfl: 3 (Patient taking differently: Take 10 mg by mouth every morning.) buPROPion XL (WELLBUTRIN XL) 300 mg 24 hr tablet^Take 1 tablet by mouth once daily.^Disp: 90 tablet^Rfl: 3 (Patient taking differently: Take 300 mg by mouth every evening.) polyethylene glycol 3350 17 gram packet^Take 17 g by mouth once daily. Dissolve dose in 4 - 8 ounces of liquid and take as directed.^Disp: ^Rfl: menthol/camphor (BIOFREEZE TOPICAL)^Apply to affected area three times daily. Apply to posterior hand and right scapula for pain and order to apply every four hours as needed for pain not to exceed more than four total applications per day.^Disp: ^Rfl: senna (SENOKOT) 8.6 mg tab^Take 1 tablet by mouth twice daily as needed for constipation.^Disp: ^Rfl: acetaminophen (TYLENOL) 325 mg tablet^Take 2 tablets by mouth every 6 hours as needed (mild pain or fever >100).^Disp: ^Rfl: (Patient taking differently: Take 650 mg by mouth every 6 hours as needed (mild pain or fever >100). 500 MG- two by mouth every eight hours as needed) PHYSICAL EXAMINATION General appearance: Well appearing, alert, in no acute distress, and well-hydrated, well nourished Renal US 12/31/23: Moderately distended urinary bladder with debris and significant post void residual. Mild-moderate RIGHT and mild LEFT hydronephrosis. CT Flank 07/06/23: IMPRESSION: Moderate right hydroureteronephrosis with no visible obstructing calculus identified. Small stable indeterminate left adrenal nodule. ASSESSMENT/PLAN: 1. BPH with obstruction/lower urinary tract symptoms - ICD9: 600.01, 599.69, ICD10: N40.1, N13.8 (primary diagnosis) 2. Urine retention - ICD9: 788.20, ICD10: R33.9 3. Hydronephrosis, unspecified hydronephrosis type - ICD9: 591, ICD10: N13.30 Retention with hydronephrosis, chronic Hancock Needs to get rid of Hancock due to potential of future orthopedic surgery Takes no blood thinners Now living back at home alone Replace Hancock today. Discussed risk benefits and alternatives to surgery Discussed possible urodynamics given retention, but even if low voiding pressure, may benefit from surgical intervention and possibly Valsalva void and be able to get rid of his catheter, which would make his future orthopedic surgeries less risky for infection Discussed operation in detail. Patient understands likely home with Hancock after aqua ablation. He is aware of the risk benefits and alternatives to surgery and would like to proceed Vicente Quintana Medical Decision Making: Medical Decision Making Level: 1 - N/A documented in this encounter [facility] 07-10-2024 Note HNO ID: [id number] Author: VICENTE QUINTANA MD Service: ? Author Type: Physician Type: Progress Notes Filed: 07/10/2024 11:09 Note Text: ESTABLISHED PATIENT VISIT HPI Miroslava Peralta is a 73 year old male who presents with a history of BPH. Patient has a history of retention with hydronephrosis On tamsulosin H/o high PVR, B hydro PSA 2.04 10/03/23 Cysto BPH, bilobar TRUS approx 65 g Copied from prior : 02/09/2024 cystoscopy 68 gram prostate FINDINGS Urethra: Normal Sphincter: Normal / Coapted Prostate: Enlarged Lateral Lobes / Enlarged Median Lobe Bladder Neck: Patent Urothelium: normal appearing, no evidence of tumor, no erythema, no foreign body Trabeculation: Yes Inflammation: Yes, mild from catheter Diverticulum: No Ureteral Orifices: normal appearing, orthotopic position, clear efflux bilaterally Trigone: normal appearing 12/31/2023 Renal us IMPRESSION: Moderately distended urinary bladder with debris and significant post void residual. Mild-moderate RIGHT and mild LEFT hydronephrosis. Creatinine Date Value Ref Range Status 03/13/2024 1.21 0.73 - 1.22 mg/dL Final PSA Screening (ng/mL) Date Value 10/03/2013 2.04 08/03/2012 1.83 Color (no units) Date Value 12/28/2023 Yellow 01/05/2019 Yellow Clarity (no units) Date Value 12/28/2023 Clear 01/05/2019 Cloudy Glucose, Urine Date Value 12/28/2023 Negative 01/05/2019 Negative mg/dL Bilirubin, Urine (no units) Date Value 12/28/2023 Negative 01/05/2019 Negative Ketones, Urine (no units) Date Value 12/28/2023 Negative 01/05/2019 Negative Specific [place], Ur (no units) Date Value 12/28/2023 1.013 01/05/2019 1.026 Hemoglobin/Blood,Ur Date Value 12/28/2023 1+ 01/05/2019 Negative pH, Urine (no units) Date Value 12/28/2023 6.0 01/05/2019 5.0 Protein, Urine Date Value 12/28/2023 Negative 01/05/2019 Negative mg/dL Urobilinogen (no units) Date Value 12/28/2023 0.2 EU/dL 01/05/2019 Normal Nitrites (no units) Date Value 12/28/2023 Negative 01/05/2019 Negative Leukest (no units) Date Value 01/05/2019 Negative Leuk Esterase (no units) Date Value 12/28/2023 3+ 24HR Urine Studies: No results for input(s): LUPH , LUCAL , LUCIT , LUOXA , LUURIC , LUVOL , LSCAO , LSCAP , LSURIC , LUCL , CYNDI , NATHALY , LUUREA , LUAM , LUMAG , LUPHOS , LUPCR , LUCREA , LUCRKBW , LUCAKBW , LUCACREA , LUCREACL , LWK , LUSUL in the last 21640 hours. REVIEW OF SYSTEMS Review of Systems Review of system, history including past medical history, surgical history, family history and social history reviewed and confirmed by me. HISTORIES PAST MEDICAL HISTORY No date: Acute pharyngitis, unspecified No date: Acute posthemorrhagic anemia No date: Arthritis No date: 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 No date: Bilateral primary osteoarthritis of hip No date: BPH without obstruction/lower urinary tract symptoms 01/05/2019: Chronic hepatitis C without hepatic coma (HCC) Comment: 10/10/2021 Hep C not detectable 06/16/[address] Augustine. Completed treatment. 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 No date: Dysphagia, oral phase No date: Hip arthritis No date: History of transfusion No date: HTN (hypertension) Comment: Well controlled on medication--Managed by PCP No date: Hydronephrosis, unspecified hydronephrosis type No date: Insomnia, unspecified 11/22/1986: Leukocytosis Comment: [place] admission - thought leukemia and he refused tests No date: Overflow incontinence of urine No date: S/P hip replacement No date: Urine retention PAST SURGICAL HISTORY 07/25/2014: ARTHRP ACETBLR/PROX FEM PROSTC AGRFT/ALGRFT; Right Comment: Hip replacement, total, right No date: BACK SURGERY HX Comment: Lumbar spine surgery 07/16/2003: COLONOSCOPY Comment: random biopsies negative 06/27/2013: COLONOSCOPY FLX DX W/COLLJ SPEC WHEN PFRMD Comment: Colonoscopy No date: JOINT REPLACEMENT HX; Right Comment: Total shoulder-- 1997: PAST SURGICAL HISTORY OF Comment: shoulder surgery bilateral 1997: PAST SURGICAL HISTORY OF Comment: tendon repair bilat elbows. No date: SKIN BIOPSY HX FAMILY HISTORY Problem Relation Age of Onset Cancer Mother breast cancer Hypertension Mother None Father father in train accident at yuni age Hypertension Sister SOCIAL HISTORY Social History Tobacco Use Smoking status: Former Current packs/day: 0.00 Average packs/day: 2.0 packs/day for 23.0 years (46.0 ttl pk-yrs) Types: Cigarettes Start date: 11/22/1969 Quit date: 11/22/1992 Years since quittin.6 Passive exposure: Never Smokeless tobacco: Never Vaping Use Vaping status: Never Used Substance Use Topics Alcohol use: Not Currently Comment: quit in 1991. Drug use: Not (more content not included)... [facility] 07-10-2024 Nurse Note Feather Duster Winder present: Shelby Lyons MA [facility] 07-10-2024 Nurse Note Feather Duster Winder present: Shelby Lyons MA documented in this encounter [facility] 07-10-2024 Note HNO ID: [id number] Author: VICENTE QUINTANA MD Service: ? Author Type: Physician Type: Procedures Filed: 07/10/2024 11:07 Note Text: CYSTOSCOPY and TRUS PROCEDURE NOTE: Miroslava Peralta is a 73 year old male who presents with BPH, retention for cystoscopy. Pt ID verified with patient: Yes Procedure verified with patient: Yes Procedure confirmed with physician and client technical support associate: Yes UNIVERSAL PROTOCOL / SAFETY CHECKLIST Procedure to be Performed: cysto and TRUS Sign In: A Moment of CARE was completed. Personnel directly involved with the procedure wore the appropriate PPE (Personal Protective Equipment). Patient/Surrogate Stated/Verified: PATIENT VERIFIED(optional for EMERGENT procedures): Patient name, Date of , Relevant allergies, and The intended procedure Time Out Communication: Intended patient and procedure match the source documents. Consent documented and matches the intended procedure. Sign Out: SIGN OUT (optional for EMERGENT procedures): No specimen collected. Vicente Quintana MD Urinalysis Done and Reviewed: N/A The benefits, risks, alternatives of the cystoscopy procedure and personnel were discussed with the patient. The verbal consent was obtained and the patient agrees to proceed. Procedure: The patient was placed on the procedure table in the supine position and prepped and draped in the usual sterile fashion. 2% Lidocaine Jelly was placed per urethra as an anesthetic in the standard fashion. Once adequate local anesthesia was achieved, the cystoscope was carefully placed into the urethra under direct visual guidance. The scope was negotiated through the pendulous urethra to the level of the bulbar urethra with no evidence of stricture. The verumontanum came into view and the scope was negotiated through the prostatic urethra which showed evidence of bi lobar occlusive disease. The bladder was entered and careful meyers endoscopy was carried out. The posterior, superior and lateral mary and dome of the bladder were all well visualized and the scope wasretroflexed upon itself. The findings were consistent with no evidence of bladder mucosal pathology. At the conclusion of the procedure, the cystoscope was removed atraumatically. The patient tolerated the procedure without complications. TRUS PROCEDURE without Biopsy Transrectal Ultrasonography was the performed with patient in lateral decubitus position. PARKER: 3+ US performed: Bladder NO definite lesions ; Post Void Residual : NA Prostate Volume: 65cc No abnormal lesions ; evidence of bi lobar occlusive disease Post Procedure Pain Assessment: 0 Patient was given standard post-procedure instructions. 22 Fr coude replaced ASSESSMENT/PLAN: 1. BPH with obstruction/lower urinary tract symptoms - ICD9: 600.01, 599.69, ICD10: N40.1, N13.8 (primary diagnosis) 2. Urine retention - ICD9: 788.20, ICD10: R33.9 3. Hydronephrosis, unspecified hydronephrosis type - ICD9: 591, ICD10: N13.30 See note Vicente Quintana M.D. [facility] 07-10-2024 Procedure note Procedure(s): CYSTOURETHROSCOPY; US, TRANSRECTAL Pre-Procedure Diagnose(s): Urine retention; Hypertrophy of prostate with urinary obstruction Post-Procedure Diagnose(s): Urine retention; Hypertrophy of prostate with urinary obstruction CYSTOSCOPY and TRUS PROCEDURE NOTE: Miroslava Peralta is a 73 year old male who presents with BPH, retention for cystoscopy. Pt ID verified with patient: Yes Procedure verified with patient: Yes Procedure confirmed with physician and client technical support associate: Yes UNIVERSAL PROTOCOL / SAFETY CHECKLIST Procedure to be Performed: cysto and TRUS Sign In: A Moment of CARE was completed. Personnel directly involved with the procedure wore the appropriate PPE (Personal Protective Equipment). Patient/Surrogate Stated/Verified: PATIENT VERIFIED(optional for EMERGENT procedures): Patient name, Date of , Relevant allergies, and The intended procedure Time Out Communication: Intended patient and procedure match the source documents. Consent documented and matches the intended procedure. Sign Out: SIGN OUT (optional for EMERGENT procedures): No specimen collected. Vicente Quintana MD Urinalysis Done and Reviewed: N/A The benefits, risks, alternatives of the cystoscopy procedure and personnel were discussed with the patient. The verbal consent was obtained and the patient agrees to proceed. Procedure: The patient was placed on the procedure table in the supine position and prepped and draped in the usual sterile fashion. 2% Lidocaine Jelly was placed per urethra as an anesthetic in the standard fashion. Once adequate local anesthesia was achieved, the cystoscope was carefully placed into the urethra under direct visual guidance. The scope was negotiated through the pendulous urethra to the level of the bulbar urethra with no evidence of stricture. The verumontanum came into view and the scope was negotiated through the prostatic urethra which showed evidence of bi lobar occlusive disease. The bladder was entered and careful meyers endoscopy was carried out. The posterior, superior and lateral mary and dome of the bladder were all well visualized and the scope was retroflexed upon itself. The findings were consistent with no evidence of bladder mucosal pathology. At the conclusion of the procedure, the cystoscope was removed atraumatically. The patient tolerated the procedure without complications. TRUS PROCEDURE without Biopsy Transrectal Ultrasonography was the performed with patient in lateral decubitus position. PARKER: 3+ US performed: Bladder NO definite lesions ; Post Void Residual : NA Prostate Volume: 65cc No abnormal lesions ; evidence of bi lobar occlusive disease Post Procedure Pain Assessment: 0 Patient was given standard post-procedure instructions. 22 Fr coude replaced ASSESSMENT/PLAN: 1. BPH with obstruction/lower urinary tract symptoms - ICD9: 600.01, 599.69, ICD10: N40.1, N13.8 (primary diagnosis) 2. Urine retention - ICD9: 788.20, ICD10: R33.9 3. Hydronephrosis, unspecified hydronephrosis type - ICD9: 591, ICD10: N13.30 See note Vicente Quintana M.D. [facility] 07-10-2024 Procedure note Procedure(s): CYSTOURETHROSCOPY; US, TRANSRECTAL Pre-Procedure Diagnose(s): Urine retention; Hypertrophy of prostate with urinary obstruction Post-Procedure Diagnose(s): Urine retention; Hypertrophy of prostate with urinary obstruction CYSTOSCOPY and TRUS PROCEDURE NOTE: Miroslava Peralta is a 73 year old male who presents with BPH, retention for cystoscopy. Pt ID verified with patient: Yes Procedure verified with patient: Yes Procedure confirmed with physician and client technical support associate: Yes UNIVERSAL PROTOCOL / SAFETY CHECKLIST Procedure to be Performed: cysto and TRUS Sign In: A Moment of CARE was completed. Personnel directly involved with the procedure wore the appropriate PPE (Personal Protective Equipment). Patient/Surrogate Stated/Verified: PATIENT VERIFIED(optional for EMERGENT procedures): Patient name, Date of , Relevant allergies, and The intended procedure Time Out Communication: Intended patient and procedure match the source documents. Consent documented and matches the intended procedure. Sign Out: SIGN OUT (optional for EMERGENT procedures): No specimen collected. Vicente Quintana MD Urinalysis Done and Reviewed: N/A The benefits, risks, alternatives of the cystoscopy procedure and personnel were discussed with the patient. The verbal consent was obtained and the patient agrees to proceed. Procedure: The patient was placed on the procedure table in the supine position and prepped and draped in the usual sterile fashion. 2% Lidocaine Jelly was placed per urethra as an anesthetic in the standard fashion. Once adequate local anesthesia was achieved, the cystoscope was carefully placed into the urethra under direct visual guidance. The scope was negotiated through the pendulous urethra to the level of the bulbar urethra with no evidence of stricture. The verumontanum came into view and the scope was negotiated through the prostatic urethra which showed evidence of bi lobar occlusive disease. The bladder was entered and careful meyers endoscopy was carried out. The posterior, superior and lateral mary and dome of the bladder were all well visualized and the scope was retroflexed upon itself. The findings were consistent with no evidence of bladder mucosal pathology. At the conclusion of the procedure, the cystoscope was removed atraumatically. The patient tolerated the procedure without complications. TRUS PROCEDURE without Biopsy Transrectal Ultrasonography was the performed with patient in lateral decubitus position. PARKER: 3+ US performed: Bladder NO definite lesions ; Post Void Residual : NA Prostate Volume: 65cc No abnormal lesions ; evidence of bi lobar occlusive disease Post Procedure Pain Assessment: 0 Patient was given standard post-procedure instructions. 22 Fr coude replaced ASSESSMENT/PLAN: 1. BPH with obstruction/lower urinary tract symptoms - ICD9: 600.01, 599.69, ICD10: N40.1, N13.8 (primary diagnosis) 2. Urine retention - ICD9: 788.20, ICD10: R33.9 3. Hydronephrosis, unspecified hydronephrosis type - ICD9: 591, ICD10: N13.30 See note Vicente Quintana M.D. documented in this encounter [facility] 07-04-2024 Note [facility] 07-04-2024 History of Present illness Narrative CC Hancock/supra pubic catheter in Place HPI: Miroslava Peralta is a 73 year old male. The patient is here now for a hancock catheter change. Procedure: Performed a catheter change. Removed fluid from balloon in the hancock. The indwelling hancock catheter size 22 Fr was removed with catheter tip intact without difficulty. Patient and friend/caregiver reports that he has been to emergency room several times because hancock catheter clogs up or has come out. Patient validates that he often leaves the drainage bag on floor during transfers or has stepped on it as well. Inserted 20 Fr Coudecatheter using aseptic technique. 10 mLs yellow urine with sediment return noted. Instructed both patient and friend/caregiver how to irrigate hancock catheter: irrigated with 60 mL 0.9% sodium chloride without difficulties. Bulb inflated with 10 mLs prefilled syringe- sterile water. Catheter secured to right inner thigh. Lots of education on placement of drainage bag with transfers/ambulation and irrigation of catheter. The patient tolerated the procedure well. Reviewed catheter care and verbalizes understanding. Assessment/Plan: Successful catheter change. Return for catheter changes as planned. Pamela Rashid LPN documented in this encounter [facility] 06-21-2024 Telephone encounter Note agree [facility] Work Phone: 06-21-2024 Miscellaneous Notes agree Patient calling said he emptied hancock catheter bag this morning and was having bloody urine. He said now his bag is full of bloody urine again. He said the hancock catheter was changed earlier in the month. Asked patient if he goes to Urologist, he said he is far away, can not give the Dr name. Advised patient to go to ER for evaluation, may have to change the catheter again or does testing to find out why having hematuria. Patient said he would have to get caregiver to take him to the ER. documented in this encounter [facility] 06-21-2024 Telephone encounter Note Patient calling said he emptied hancock catheter bag this morning and was having bloody urine. He said now his bag is full of bloody urine again. He said the hancock catheter was changed earlier in the month. Asked patient if he goes to Urologist, he said he is far away, can not give the Dr name. Advised patient to go to ER for evaluation, may have to change the catheter again or does testing to find out why having hematuria. Patient said he would have to get caregiver to take him to the ER. [facility] 05-30-2024 History of Present illness Narrative Patient came in and said his Hancock catheter fell out about 4 hours ago. Patient is unable to get any urine out. Patient is in excruciating pain. Patient also said he has not had a bowel movement in 4 to 5 days. At the time due to the amount of pain patient is in and the chief complaint patient is being sent back to [facility] which is the facility that placed the catheter initially. Patient is okay with this care plan and caregiver is going to take him. documented in this encounter [facility] 05-30-2024 Note [facility] 05-01-2024 Telephone encounter Note Noted. Bharathi Wiggins APRN.CNP, DNP [facility] 05-01-2024 Miscellaneous Notes Noted. Bharathi Wiggins APRN.CNP, DNP Called Jocelin- patient needs to have hancock catheter changed with nurse. Scheduled appointment. Per Jocelin she will convey appointment details to patient. States that patient likes to have the hancock catheter despite it being initially a short-term fix. Pamela Rashid LPN See Bharathi Wiggins message below, can we accommodate patient on his schedule? Order pended. Thanks. That is fine. You can schedule the patient for a follow up with and Shira and do the cath change during the appt. I am only at [facility] on every other Wednesday. Bharathi Wiggins DNP, DIRECTOR OF TESTING Department of Urology [facility] Should not be a problem for hancock to be changed here at [place] as a nurse visit. Will have Luis Alfredo Wiggins NP confirm and give orders for the 20 Fr Coude to be changed monthly. Orders pended. Please file if appropriate. Zita Mobley MA Spoke with patient to let him know that his [facility] states he is too complex with a 20 lebanese coude catheter to be done in home setting with [facility] anymore. Ray RN from [facility] did inform patient and I did too. I asked if he wanted to attempt to have another [facility] service accommodate patient at home, or if he can get transportation to the [place] office to get changed monthly. He says he cannot get ride to [place], but hoping to get ride to the [place] office. Has seen Luis Alfredo Wiggins as well. Can patient get monthly hancock cath change in [facility]? Needs at the end of April, new 20 lebanese coude draining well with no problems. [facility] discharging patient from there service for monthly cath change as doing a 20 lebanese hancock change too complex for them. Attempting to call patient to set up, voicemail full. Will try again. FYI: Ray with [facility] called to let you know pt was scheduled for a recert visit on 05/09/24 for monthly cath change visits. Ray reports this is going to be cancelled for 05/09/24 and will have a visit this week to d/c from . REASON: pt had a 16- to 18 fFench cath and was seen by Urology and this was changed to 20 [place] Coude cath. Pt has become to complex for [facility] and being d/c and is to follow with the urologist monthly for cath changes.. No call back needed. Zita Palmer LPN documented in this encounter [facility] 05-01-2024 Telephone encounter Note Called Jocelin- patient needs to have hancock catheter changed with nurse. Scheduled appointment. Per Jocelin she will convey appointment details to patient. States that patient likes to have the hancock catheter despite it being initially a short-term fix. Pamela Rashid LPN [facility] 04-27-2024 Telephone encounter Note See Bharathi Wiggins message below, can we accommodate patient on his schedule? Order pended. Thanks. That is fine. You can schedule the patient for a follow up with and Shira and do the cath change during the appt. I am only at [place] on every other Wednesday. Bharathi Wiggins DNP, DIRECTOR OF TESTING Department of Urology [facility] 04-25-2024 Telephone encounter Note Should not be a problem for hancock to be changed here at [place] as a nurse visit. Will have Luis Alfredo Wiggins NP confirm and give orders for the 20 Fr Coude to be changed monthly. Orders pended. Please file if appropriate. Zita Mobley MA [facility] 04-25-2024 Telephone encounter Note Spoke with patient to let him know that his [facility] states he is too complex with a 20 lebanese coude catheter to be done in home setting with [facility] anymore. Ray RN from [facility] did inform patient and I did too. I asked if he wanted to attempt to have another [facility] service accommodate patient at home, or if he can get transportation to the [place] office to get changed monthly. He says he cannot get ride to [place], but hoping to get ride to the [place] office. Has seen Luis Alfredo Wiggins as well. Can patient get monthly hancock cath change in [facility]? Needs at the end of April, new 20 lebanese coude draining well with no problems. [facility] 04-25-2024 Telephone encounter Note [facility] discharging patient from there service for monthly cath change as doing a 20 lebanese hancock change too complex for them. Attempting to call patient to set up, voicemail full. Will try again. [facility] 04-25-2024 Telephone encounter Note FYI: Ray with [facility] called to let you know pt was scheduled for a recert visit on 05/09/24 for monthly cath change visits. Ray reports this is going to be cancelled for 05/09/24 and will have a visit this week to d/c from . REASON: pt had a 16- to 18 fFench cath and was seen by Urology and this was changed to 20 Mexican Coude cath. Pt has become to complex for [facility] and being d/c and is to follow with the urologist monthly for cath changes.. No call back needed. Zita Palmer LPN [facility] 04-21-2024 Telephone encounter Note Patient's [facility] RN Ray calling from [facility] and needs to make sure OK to continue the monthly changes at home since now he is a 20 lebanese coude. I advised OK to continue to change at home. He needed the orders to continue the 20 lebanese coude. Generated an order that will be scanned into [employer] Also OV notes. Faxed it to [facility] at , fax confirmation received. [facility] 04-21-2024 Miscellaneous Notes Patient's [facility] RN Ray calling from [facility] and needs to make sure OK to continue the monthly changes at home since now he is a 20 lebanese coude. I advised OK to continue to change at home. He needed the orders to continue the 20 lebanese coude. Generated an order that will be scanned into [employer]. Also OV notes. Faxed it to [facility] at , fax confirmation received. documented in this encounter [facility] 04-19-2024 Telephone encounter Note Please see if the patient can get in sooner with Dr. Mable Quintana to discuss surgery. He currently has a hancock catheter in place and is unable to wait until August for a visit Also please cancel the visit with Luis Alfredo Wiggins on 05/10 [facility] 04-19-2024 Miscellaneous Notes Please see if the patient can get in sooner with Dr. Mable Quintana to discuss surgery. He currently has a hancock catheter in place and is unable to wait until August for a visit Also please cancel the visit with Luis Alfredo Wiggins on 05/10 documented in this encounter [facility] 04-19-2024 Note [facility] 04-19-2024 History of Present illness Narrative Miroslava Peralta is a 73 year old male who presents today for a follow up for No chief complaint on file. CHIEF COMPLAINT & HISTORY OF PRESENT ILLNESS CC: catheter check 73 year old male with a history of BPH presents for a catheter change. Past history of AUR, hydronephrosis, cystoscopy on 02/19/2024 showed tri lobar enlargement, discussed RELISA, greenlight laser PVP. Presents today for heavy sediment in his catheter tube, he was taught how to flush at home but has not done on his own yet. [facility] catheter changes Denies fever, chills. Catheter was changed 2 days ago Reports numbness from his waist down to toes due to DDD, chronic s/p L3-5 laminectomy 02/2022 Previously seen by Luis Alfredo Wiggins CNP, AMANDO Hernandez Creatinine 1.21 02/09/2024 cystoscopy 68 gram prostate FINDINGS Urethra: Normal Sphincter: Normal / Coapted Prostate: Enlarged Lateral Lobes / Enlarged Median Lobe Bladder Neck: Patent Urothelium: normal appearing, no evidence of tumor, no erythema, no foreign body Trabeculation: Yes Inflammation: Yes, mild from catheter Diverticulum: No Ureteral Orifices: normal appearing, orthotopic position, clear efflux bilaterally Trigone: normal appearing 12/31/2023 Renal us IMPRESSION: Moderately distended urinary bladder with debris and significant post void residual. Mild-moderate RIGHT and mild LEFT hydronephrosis. VITALS: There were no vitals taken for this visit. ALLERGIES: Cardizem [Diltiazem Hcl], Diovan [Valsartan], Hyzaar [Losartan-Hydrochlorothiazide], and Lopressor [Metoprolol Tartrate] MEDICATIONS: Current Outpatient Medications Medication Sig Dispense Refill gabapentin (NEURONTIN) 300 mg capsule Take 2 capsules by mouth three times a day for 90 days. 540 capsule 0 Blood Pressure Monitor 1 Each once daily. 1 Each 0 potassium chloride ER (KLOR-CON) 20 mEq tablet Take 1 tablet by mouth once daily. 90 tablet 1 Melatonin 5 mg cap Take 1 capsule by mouth daily at bedtime. 90 capsule 3 traZODone (DESYREL) 100 mg tablet Take 1 tablet by mouth daily at bedtime. 90 tablet 3 meclizine (ANTIVERT) 12.5 mg tab Take 1 tablet by mouth three times a day. 90 tablet 0 ferrous sulfate EC 324 mg (65 mg iron) TbEC Take 1 tablet by mouth two times a day with meals. 180 tablet 1 Catheter (BARD COUDE TIP CATHETER) 16 Fr misc ISC 2-3 x per day for urinary retention 100 Each 1 tamsulosin (FLOMAX) 0.4 mg Take 1 capsule by mouth daily at bedtime. 90 capsule 0 amLODIPine (NORVASC) 10 mg tablet Take 1 tablet by mouth once daily. (Patient taking differently: Take 10 mg by mouth every morning.) 90 tablet 3 buPROPion XL (WELLBUTRIN XL) 300 mg 24 hr tablet Take 1 tablet by mouth once daily. (Patient taking differently: Take 300 mg by mouth every evening.) 90 tablet 3 polyethylene glycol 3350 17 gram packet Take 17 g by mouth once daily. Dissolve dose in 4 - 8 ounces of liquid and take as directed. menthol/camphor (BIOFREEZE TOPICAL) Apply to affected area three times daily. Apply to posterior hand and right scapula for pain and order to apply every four hours as needed for pain not to exceed more than four total applications per day. senna (SENOKOT) 8.6 mg tab Take 1 tablet by mouth twice daily as needed for constipation. acetaminophen (TYLENOL) 325 mg tablet Take 2 tablets by mouth every 6 hours as needed (mild pain or fever >100). (Patient taking differently: Take 650 mg by mouth every 6 hours as needed (mild pain or fever >100). 500 MG- two by mouth every eight hours as needed) No current facility-administered medications for this visit. SOCIAL HISTORY: Social History Tobacco Use Smoking status: Former Packs/day: 2.00 Years: 23.00 Additional pack years: 0.00 Total pack years: 46.00 Types: Cigarettes Quit date: 11/22/1992 Years since quittin.4 Passive exposure: Never Smokeless tobacco: Never Vaping Use Vaping Use: Never used Substance Use Topics Alcohol use: Not Currently Comment: quit in 1991. Drug use: Not Currently Comment: Quit drugs in . PAST MEDICAL HISTORY: PAST MEDICAL HISTORY Diagnosis Date Acute pharyngitis, unspecified Acute posthemorrhagic anemia Arthritis 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 Bilateral primary osteoarthritis of hip BPH without obstruction/lower urinary tract symptoms Chronic hepatitis C without hepatic coma (HCC) 01/05/2019 10/10/2021 Hep C not detectable 06/16/[address] Augustine. Completed treatment. 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 Dysphagia, oral phase Hip arthritis History of transfusion HTN (hypertension) Well controlled on medication--Managed by PCP Hydronephrosis, unspecified hydronephrosis type Insomnia, unspecified Leukocytosis 11/22/1986 [place] admission - thought leukemia and he refused tests Overflow incontinence of urine S/P hip replacement PAST SURGICAL HISTORY: PAST SURGICAL HISTORY Procedure Laterality Date ARTHRP ACETBLR/PROX FEM PROSTC AGRFT/ALGRFT Right 07/25/2014 Hip replacement, total, right BACK SURGERY HX Lumbar spine surgery COLONOSCOPY 07/16/2003 random biopsies negative COLONOSCOPY FLX DX W/COLLJ SPEC WHEN PFRMD 06/27/2013 Colonoscopy JOINT REPLACEMENT HX Right Total shoulder-- PAST SURGICAL HISTORY OF 1997 shoulder surgery bilateral PAST SURGICAL HISTORY OF 1997 tendon repair bilat elbows. SKIN BIOPSY HX FAMILY HISTORY: FAMILY HISTORY Problem Relation Age of Onset Cancer Mother breast cancer Hypertension Mother None Father father in train accident at yuni age Hypertension Sister All histories reviewed on this date 04/19/2024: Yes REVIEW OF SYSTEMS: CONSTITUTIONAL: Patient reports no recent fever or weight loss CARDIOVASCULAR: Negative for chest pain. RESPIRATORY: Negative for cough, hemoptysis, wheezing, COPD, dyspnea or shortness of breath GI: No nausea, vomiting, or diarrhea MUSCULOSKELETAL: denies back pain or muscular weakness All other systems reviewed and are negative other than HPI. PHYSICAL EXAM: constitutional: appears healthy in no acute distress respiratory: normal respiratory motion gu: hancock catheter in place RADIOLOGY REPORTS REVIEWED: Yes LAB RESULTS REVIEWED: Yes IMAGING STUDIES INDEPENDENTLY REVIEWED: No OLD RECORDS REVIEWED: Yes: Extensive: No ASSESSMENT/PLAN: 1. Urine retention - ICD9: 788.20, ICD10: R33.9 (primary diagnosis) -declined CIC -hancock catheter changed to a #20 coude cathter due to enlarged prostate, we will change the order to coude catheter - US KIDNEY/BLADDER 2. Hydronephrosis, unspecified hydronephrosis type - ICD9: 591, ICD10: N13.30 - US KIDNEY/BLADDER 3. BPH with obstruction/lower urinary tract symptoms - ICD9: 600.01, 599.69, ICD10: N40.1, N13.8 -continue with #20 coude indwelling hancock catheter -declined cic -he would like to discuss surgery with staff for BPH -cystoscopy showed tri lobar disease - US KIDNEY/BLADDER Patient to schedule follow up with staff to discuss surgery. Saskia Sears APRN.MYRA documented in this encounter [facility] 04-18-2024 Telephone encounter Note Scheduled with Saskia Sears at [place] tomorrow at 10:40am Pt aware. Transportation will let us know if that is an issue. Zita Mobley MA [facility] 04-18-2024 Miscellaneous Notes Scheduled with Saskia Sears at [place] [facility] at 10:40am Pt aware. Transportation will let us know if that is an issue. Zita Mobley MA Message about the work in appt did not reach us until this afternoon. Call placed to Ray at [facility]. Pt was previously doing ISC. He is unable to do that anymore due to immobility and decreased feeling in his hands. He has had 18 Fr straight hancock. No problem with insertions, but plugging up with a large amount of sediment. They have been unable to irrigate it clear, and have had to change it 3 times in the last 11 days[address] [facility] only doing catheter care, no other services. Appt offered in [place] tomorr with Saskia Sears or with Dany Gomez next Wednesday here in [place]. Ray will contact the patients transportation and see when they can bring him. Await response. Zita Mobley MA Multiple attempts to reach urology nursing via phone today to see if patient can added on today locally. Will send this note to nursing and Dany. Cecily Johnson MA Needs scheduled Wednesday with Dany Gomez in [place] or Saskia Sears in [place] per message from Bharathi Wiggins on Wednesday. IMMANUEL Campos from [facility] calling, patient has a hancock catheter that they have changed 3 times in the last 11 days along with several other cath bag changes due to the amount of sediment in the bag. Today CHARGE NURSE that changed catheter called Andres to report that patient had a cath blockage and she changed it again. She reported that she had never seen so much sediment in a bag before. Patient is scheduled to see Luis Alfredo Wiggins in mid April but Andres feels that patient needs to be seen sooner if possible. Please advise. documented in this encounter [facility] 04-18-2024 Telephone encounter Note Message about the work in appt did not reach us until this afternoon. Call placed to Ray at [facility]. Pt was previously doing ISC. He is unable to do that anymore due to immobility and decreased feeling in his hands. He has had 18 Fr straight hancock. No problem with insertions, but plugging up with a large amount of sediment. They have been unable to irrigate it clear, and have had to change it 3 times in the last 11 days[address] alone[address] [facility] only doing catheter care, no other services. Appt offered in [place] tomorrow with Saskia Sears or with Dany Gomez next Wednesday here in [place]. Ray will contact the patients transportation and see when they can bring him. Await response. Zita Mobley MA [facility] 04-18-2024 Telephone encounter Note Multiple attempts to reach urology nursing via phone today to see if patient can added on today locally. Will send this note to nursing and Dany. Cecily Johnson MA [facility] 04-17-2024 Telephone encounter Note Needs scheduled Wednesday with Dany Gomez in [place] or Saskia Sears in [place] per message from Bharathi Wiggins on Wednesday. T [facility] Work Phone: 04-14-2024 Telephone encounter Note IMMANUEL Campos from [facility] calling, patient has a hancock catheter that they have changed 3 times in the last 11 days along with several other cath bag changes due to the amount of sediment in the bag. Today CHARGE NURSE that changed catheter called Andres to report that patient had a cath blockage and she changed it again. She reported that she had never seen so much sediment in a bag before. Patient is scheduled to see Luis Alfredo Wiggins in mid April but Andres feels that patient needs to be seen sooner if possible. Please advise. [facility] 04-13-2024 Telephone encounter Note Left message to approve. [facility] 04-13-2024 Miscellaneous Notes Left message to approve. Reviewed and approve. Augusto, Duong Zaidi PA-C Mone RN with [facility] calls to report patient was seen for eval for chronic catheter needs and will be due for a catheter change in a month and requesting orders for a SN visit for catheter change in 1 month and a prn visit in case of catheter complications. Mone requests call back at [phone] with verbal orders. Please review and advise, Licha Carcamo RN documented in this encounter [facility] 04-13-2024 Telephone encounter Note Reviewed and approve. ThanksDuong PA-C [facility] 04-12-2024 Telephone encounter Note Marjan PT @ [facility] calling to let provider know patient was seen today for recertification and with Physical Therapy plan of care. PT will see patient 2 x/week for two weeks and 1 x/week for one week for lower extremity strengthening, balance and gait training. If agree, no need to call back. Krysta Lopez RN [facility] 04-12-2024 Miscellaneous Notes Marjan PT @ [facility] calling to let provider know patient was seen today for recertification and with Physical Therapy plan of care. PT will see patient 2 x/week for two weeks and 1 x/week for one week for lower extremity strengthening, balance and gait training. If agree, no need to call back. Krysta Lopez RN documented in this encounter [facility] 04-12-2024 Telephone encounter Note Mone RN with [facility] calls to report patient was seen for eval for chronic catheter needs and will be due for a catheter change in a month and requesting orders for a SN visit for catheter change in 1 month and a prn visit in case of catheter complications. Mone requests call back at [phone] with verbal orders. Please review and advise, Licha Carcamo RN [facility] 04-10-2024 Instructions Marbella Zaidi PA-C - 04/10/2024 2:43 PM EDT Try pouch underwear to lift tresticles. documented in this encounter [facility] 04-10-2024 History of Present illness Narrative 73 year old male with c/o or follow up. Feeling worse in last month Hard to get him in and out of car, has to have help lifting leg. Feels strength is declining. Worsening over last month States he has been praying for God to take him home- states not intending to hurt himself but needs out of constant pain. States testicles are killing me , constantly squished up, unable to move well enough to loosen Pain everywhere . Stopped Naproxen which was helping due to renal status'' Tylenol 500mg 1-2 tabs a few times a day with little improvement. Constant pain, all over. Bowels are pretty regular Once a day to three times a day Black from iron, sticky Solid parts to soft In-dwelling hancock to CD Followed by home health, changes every 4 weeks. Followed up with Christy AVILA from hospital, from her notes: Had UTI, went rehab for 3 weeks. Also had viral pneumonia. Rehab did not really help. Not sleeping good, would like to increase trazodone. Increased Trazodone to 100mg qHS From my summary: Hospital discharge Admission date: 02/17/2024 Discharge date 02/24/2024 Discharge diagnoses: 1. Complicated UTI 2. Weakness acute 3. Viral pneumonia unspecified 02/17/2024 presented to [facility] emergency department complaint of fatigue well for quite some time. It is all over, not sure if he has a fever, indwelling catheter, lives alone. Had been in ER 02/15/2024 In ER vital signs were 99.7 [id number] Exam demonstrated generalized weakness otherwise grossly normal.\ CBC 20.0-Hgb 11.1-HCT 33.9 with increased RDW-PLT 281, neutrophil percent 88.1% H, 1% 0.9 L. BUN 24 H-CRE 1.65H Urine demonstrated 10-25 RBC, greater than 100 WBC, 1+ bacteria Chest x-ray demonstrated reticulonodular interstitial thickening in the lower lobes more pronounced on the right and right upper lobe, possibly related to viral pneumonia. Patient was admitted to [facility] with 1. Complicated urinary tract infection, started on IV Zosyn, Hancock changed, labs ordered to be trended. 2. Viral pneumonia with negative testing for COVID, influenza, RSV: Supportive care with mucolytic's and decongestants, vitamin D3, vitamin C and zinc to help with immune response 3. Generalized weakness arising from above: PT and OT were started 4. Essential hypertension medications were held until above infections resolved, hydralazine IV as needed for systolic blood pressure elevation. 5. Obesity 6. Remote history of tobacco use 7. History of blindness right eye stable 8. BPPV on as needed Antivert 9. History of spinal cord compression status post lumbar left laminectomy for spinal decompression 10. Iron deficiency anemia 11. Depression with anxiety: Continue home medication close Xanax if needed 12. History of hepatitis A 13. GERD 14. Osteoarthritis with status post right hip replacement: Tylenol as needed for pain 15 DVT prophylaxis with Lovenox 40 mg subcu plus SCDs. Urine culture was positive for Pseudomonas and ampicillin for Pseudomonas and Enterococcus respectively significant improvement on antibiotics. Patient is wheelchair-bound at baseline: PT/OT/case management followed. Was felt to be medically stable and ready for discharge on 02/21/[address] [facility] The above conditions improved Blood pressure was maintained Patient was restarted on home medications at discharge with resumption of iron supplement. Iron deficiency anemia Medication reconciliation: No new medications Continue medications: Amlodipine 10 mg daily Gabapentin 300 mg 3 times daily Tamsulosin 0.4 mg p.o. nightly Trazodone 50 mg p.o. nightly Bupropion 300 mg extended release p.o. daily (5 mg p.o. at bedtime Meclizine 12.5 mg p.o. 3 times daily Change medications: Ferrous sulfate 25 mg daily #30/0 Discontinued medication: Cephalexin 500 mg Lisinopril 20 mg daily Latest Ref Rng 01/31/2024 03/13/2024 WBC 3.70 - 11.00 k/uL 8.81 7.11 RBC 4.20 - 6.00 m/uL 3.73 (L) 4.06 (L) Hemoglobin 13.0 - 17.0 g/dL 11.0 (L) 12.1 (L) Hematocrit 39.0 - 51.0 % 33.4 (L) 37.4 (L) MCV 80.0 - 100.0 fL 89.5 92.1 MCH 26.0 - 34.0 pg 29.5 29.8 MCHC 30.5 - 36.0 g/dL 32.9 32.4 RDW-CV 11.5 - 15.0 % 16.4 (H) 15.5 (H) Platelet Count 150 - 400 k/uL 273 323 MPV 9.0 - 12.7 fL 8.7 (L) 9.6 Neut% % 65.5 63.4 Abs Neut (ANC) 1.45 - 7.50 k/uL 5.76 4.51 Lymph% % 19.4 20.5 Abs Lymph 1.00 - 4.00 k/uL 1.71 1.46 Milam% % 9.3 9.7 Abs Milam <0.87 k/uL 0.82 0.69 Eosin% % 4.4 4.8 Abs Eosin <0.46 k/uL 0.39 0.34 Baso% % 1.1 1.3 Abs Baso <0.11 k/uL 0.10 0.09 Immature Gran % % 0.3 0.3 IMMATURE GRANS (ABS) <0.10 k/uL 0.03 <0.03 NRBC /100 WBC 0.0 0.0 Absolute nRBC <0.01 k/uL <0.01 <0.01 DTYPE Auto Auto Protein, Total 6.3 - 8.0 g/dL 7.3 7.4 Albumin 3.9 - 4.9 g/dL 3.8 (L) 3.8 (L) Calcium 8.5 - 10.2 mg/dL 9.4 9.5 Bilirubin, Total 0.2 - 1.3 mg/dL <0.2 (L) 0.2 Alkaline Phosphatase 38 - 113 U/L 71 65 AST 14 - 40 U/L 7 (L) 12 (L) ALT 10 - 54 U/L 6 (L) 7 (L) Glucose 74 - 99 mg/dL 111 (H) 101 (H) BUN 9 - 24 mg/dL 26 (H) 19 Creatinine 0.73 - 1.22 mg/dL 1.33 (H) 1.21 Sodium 136 - 144 mmol/L 135 (L) 134 (L) Potassium 3.7 - 5.1 mmol/L 4.3 4.4 Chloride 97 - 105 mmol/L 103 103 CO2 22 - 30 mmol/L 24 20 (L) Anion Gap 9 - 18 mmol/L 8 (L) 11 eGFR >=60 mL/min/1.73m 56 (L) 63 Acetylcholine Recept/Modulating <=45 % 0 Magnesium 1.7 - 2.3 mg/dL 2.1 Vitamin B12 232 - 1,245 pg/mL 414 TSH 0.270 - 4.200 mIU/L 2.000 HISTORIES FAMILY HISTORY Problem Relation Age of Onset Cancer Mother breast cancer Hypertension Mother None Father father in train accident at yuni age Hypertension Sister PAST MEDICAL HISTORY Diagnosis Date Acute pharyngitis, unspecified Acute posthemorrhagic anemia Arthritis 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 Bilateral primary osteoarthritis of hip BPH without obstruction/lower urinary tract symptoms Chronic hepatitis C without hepatic coma (HCC) 01/05/2019 10/10/2021 Hep C not detectable 06/16/[address] Augustine. Completed treatment. 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 Dysphagia, oral phase Hip arthritis History of transfusion HTN (hypertension) Well controlled on medication--Managed by PCP Hydronephrosis, unspecified hydronephrosis type Insomnia, unspecified Leukocytosis 11/22/1986 [place] admission - thought leukemia and he refused tests Overflow incontinence of urine S/P hip replacement PAST SURGICAL HISTORY Procedure Laterality Date ARTHRP ACETBLR/PROX FEM PROSTC AGRFT/ALGRFT Right 07/25/2014 Hip replacement, total, right BACK SURGERY HX Lumbar spine surgery COLONOSCOPY 07/16/2003 random biopsies negative COLONOSCOPY FLX DX W/COLLJ SPEC WHEN PFRMD 06/27/2013 Colonoscopy JOINT REPLACEMENT HX Right Total shoulder-- PAST SURGICAL HISTORY OF 1997 shoulder surgery bilateral PAST SURGICAL HISTORY OF 1997 tendon repair bilat elbows. SKIN BIOPSY HX Social History Tobacco Use Smoking status: Former Packs/day: 2.00 Years: 23.00 Additional pack years: 0.00 Total pack years: 46.00 Types: Cigarettes Quit date: 11/22/1992 Years since quittin.4 Passive exposure: Never Smokeless tobacco: Never Vaping Use Vaping Use: Never used Substance Use Topics Alcohol use: Not Currently Comment: quit in 1991. Drug use: Not Currently Comment: Quit drugs in . 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 540 capsule 0 Blood Pressure Monitor 1 Each once daily. 1 Each 0 potassium chloride ER (KLOR-CON) 20 mEq tablet Take 1 tablet by mouth once daily. 90 tablet 1 Melatonin 5 mg cap Take 1 capsule by mouth daily at bedtime. 90 capsule 3 traZODone (DESYREL) 100 mg tablet Take 1 tablet by mouth daily at bedtime. 90 tablet 3 meclizine (ANTIVERT) 12.5 mg tab Take 1 tablet by mouth three times a day. 90 tablet 0 ferrous sulfate EC 324 mg (65 mg iron) TbEC Take 1 tablet by mouth two times a day with meals. 180 tablet 1 Catheter (BARD COUDE TIP CATHETER) 16 Fr misc ISC 2-3 x per day for urinary retention 100 Each 1 tamsulosin (FLOMAX) 0.4 mg Take 1 capsule by mouth daily at bedtime. 90 capsule 0 lisinopril (ZESTRIL) 20 mg tablet Take 1 tablet by mouth once daily. (Patient taking differently: Take 20 mg by mouth every morning.) 90 tablet 3 amLODIPine (NORVASC) 10 mg tablet Take 1 tablet by mouth once daily. (Patient taking differently: Take 10 mg by mouth every morning.) 90 tablet 3 buPROPion XL (WELLBUTRIN XL) 300 mg 24 hr tablet Take 1 tablet by mouth once daily. (Patient taking differently: Take 300 mg by mouth every evening.) 90 tablet 3 polyethylene glycol 3350 17 gram packet Take 17 g by mouth once daily. Dissolve dose in 4 - 8 ounces of liquid and take as directed. menthol/camphor (BIOFREEZE TOPICAL) Apply to affected area three times daily. Apply to posterior hand and right scapula for pain and order to apply every four hours as needed for pain not to exceed more than four total applications per day. senna (SENOKOT) 8.6 mg tab Take 1 tablet by mouth twice daily as needed for constipation. acetaminophen (TYLENOL) 325 mg tablet Take 2 tablets by mouth every 6 hours as needed (mild pain or fever >100). (Patient taking differently: Take 650 mg by mouth every 6 hours as needed (mild pain or fever >100). 500 MG- two by mouth every eight hours as needed) No current facility-administered medications for this visit. Hepatitis A Vaccine(1 of 2 - Risk 2-dose series) Never done RSV Vaccine(1 - 1-dose 60+ series) Never done Advance Directive Discussion due on 11/22/2023 Behavioral Health Screening Never done Colorectal Cancer Screening due on 01/04/2024 EXAM: BP 111/78 Pulse 88 Resp 16 Wt 94.8 kg (209 lb) SpO2 96% BMI 29.15 kg/m Pleasant older ma in no acute distress. Alert and oriented all spheres. Normal affect and cognition. Speech normal. No deficits to learning or comprehension. Skin warm, dry, pink to lips and nailbeds. Normal turgor. Respirations regular and unlabored. HEENT: NCAT. No scleral icterus or conjunctival injection. TM's clear. Nose and oropharynx free from injection or lesion. Oral membranes moist and pink. No cervical lymph nodes. Thyroid non-tender, no masses, or enlargement. Carotids pulses 2+/4+ without bruits. No JVD with HOB at 30 degrees. Chest is normal shape. Lungs are clear to all palencia with good air exchange through out. HRRR without murmur or gallop. No lifts, heaves, or rubs. Extrem: no clubbing or cyanosis. Edema: none. Extremities are warm and pink with prompt capillary refill. Checking modified Adson's on left with loss of pulse, became dizzy, pale, sweaty with rapid pulse which resolved over about 2 minutes. Did not occur on rightcheck ASSESSMENT/PLAN: 1. DDD (degenerative disc disease), lumbar - ICD9: 722.52, ICD10: M51.36 (primary diagnosis) Multiple issues with severe neck and lumbar stenosis, myelomalacia. - Patient given instructions use of medications as ordered Opiate restrictions reviewed. F/u on progress per mychart. - TRAMADOL 50 MG TABLET 2. MGUS (monoclonal gammopathy of unknown significance) - ICD9: 273.1, ICD10: D47.2 3. Paresthesia of saddle area: Cauda equina ruled out - ICD9: 782.0, ICD10: R20.2 Currently on gabapentin dosing per renal 4. Neurogenic claudication - ICD9: 781.99, ICD10: R29.818 Asa mendez - TRAMADOL 50 MG TABLET 5. Waldenstrom macroglobulinemia (HCC) - ICD9: 273.3, ICD10: C88.[address] Bhat 6. Testicular atrophy - ICD9: 608.3, ICD10: N50.0 Insurance won't cover testosterone which might help weakness and fatigue 7. Stage 3b chronic kidney disease (HCC) - ICD9: 585.3, ICD10: N18.32 - eGFR: 63 Stable - Counseled on avoiding NSAIDs, adequate hydration 8. 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 - ICD9: 600.01, 788.21, ICD10: N40.1, R39.14 Indwelling hancock Home health monitoring, q4 week replacement Last urine no WBC's, + Proteus, suspected colonization 9. Dizziness - ICD9: 780.4, ICD10: R42 Concern for possible subclavian steal - US CAROTID ARTERIES [facility] Marbella Zaidi PA-C documented in this encounter [facility] 04-10-2024 Note [facility] 04-06-2024 Telephone encounter Note Left detailed message on Andres the [facility] RN secured voicemail, for approval. Left message for patient to return call. Patient does have an appointment 04/10/2024 [facility] 04-06-2024 Miscellaneous Notes Left detailed message on Andres the [facility] RN secured voicemail, for approval. Left message for patient to return call. Patient does have an appointment 04/10/2024 Culture demonstrated Proteus. Unless symptomatic with urinary pain, burning, fever I would still say it is colonization from repeated self cath and later hancock insertion. Please let me kow if symptomatic. Thanks, Duong Zaidi PA-C External Lab [[id number]] Final culture results. Please review. I approve. Thanks, Duong Zaidi PA-C Andres GAMBINO [facility] called and is notified of providers results. He voices understanding. He states today was he last approved visit. He would like to see the Pt one more time for one week to evaluate after his appointment with provider. He would like to go over any medication changes. He also states the Pt has had the catheter since leaving the hospital. He states the Pt has been having issues getting in to see Bharathi Wiggins NP. Andres was put through to urology PSS to schedule. Shelby Baker RN Please advise sows no acute UTI, abnormals are r/t colonization from catheter use. Thanks, Duong Zaidi PA-C Images from the original note were not included. UA result is back from [facility] and in scanned documents awaiting culture. Media Information File Link Scan on 04/04/2024 7:36 PM by Provider, ExternalBEVERLY: Miscellaneous Lab documented in this encounter [facility] 04-06-2024 Telephone encounter Note Culture demonstrated Proteus. Unless symptomatic with urinary pain, burning, fever I would still say it is colonization from repeated self cath and later hancock insertion. Please let me kow if symptomatic. Duong Tineo PA-C [facility] 04-06-2024 Telephone encounter Note External Lab [[id number]] Final culture results. Please review. [facility] 04-06-2024 Telephone encounter Note I approve. Duong Tineo PA-C [facility] 04-05-2024 Telephone encounter Note Andres GAMBINO [facility] called and is notified of providers results. He voices understanding. He states today was he last approved visit. He would like to see the Pt one more time for one week to evaluate after his appointment with provider. He would like to go over any medication changes. He also states the Pt has had the catheter since leaving the hospital. He states the Pt has been having issues getting in to see Bharathi Wiggins NP. Andres was put through to urology PSS to schedule. Shelby Baker RN [facility] 04-05-2024 Telephone encounter Note Please advise sows no acute UTI, abnormals are r/t colonization from catheter use. Thanks, Duong Zaidi PA-C [facility] 04-05-2024 Telephone encounter Note Images from the original note were not included. UA result is back from [facility] and in scanned documents awaiting culture. Media Information File Link Scan on 04/04/2024 7:36 PM by Provider, BEVERLY [place]: Miscellaneous Lab [facility] 04-04-2024 Telephone encounter Note Orders refaxed to correct lab number of [phone] [facility] 04-04-2024 Miscellaneous Notes Orders refaxed to correct lab number of [phone] Orders signed and faxed to [facility] outpatient lab at [phone] Telephone on 04/04/24 URINALYSIS, REFLEX MICROSCOPIC URINE CULTURE Duong Tineo PA-C Ray from [facility] calling to follow up and see if orders have been faxed for urine. Does not appear they are signed. Yudy Peters. sent msg to Duong Zaidi to sign. Andres from [facility] Home Health calling he was recreational therapist nurse last night and had to change patient hancock catheter. He said the urine was very bad looking. He collected urine and took it to [facility] Lab at 8 pm. Will need orders faxed to [facility] Lab [phone]. He said lab was going to run the urine since only good for 4 hours and as long as orders are faxed. Pending orders needs diagnosis. Please advise documented in this encounter [facility] 04-04-2024 Telephone encounter Note Orders signed and faxed to [facility] outpatient lab at [phone] [facility] 04-04-2024 Telephone encounter Note Telephone on 04/04/24 URINALYSIS, REFLEX MICROSCOPIC URINE CULTURE Duong Tineo PA-C [facility] 04-04-2024 Telephone encounter Note Ray from [facility] calling to follow up and see if orders have been faxed for urine. Does not appear they are signed. Yudy Mccrary sent msg to Duong Zaidi to sign. [facility] 04-04-2024 Telephone encounter Note Andres from [facility] calling he was recreational therapist nurse last night and had to change patient hancock catheter. He said the urine was very bad looking. He collected urine and took it to [facility] Lab at 8 pm. Will need orders faxed to [facility] Lab [phone]. He said lab was going to run the urine since only good for 4 hours and as long as orders are faxed. Pending orders needs diagnosis. Please advise [facility] 03-28-2024 Telephone encounter Note Patient notified. Verbalized understanding. [facility] 03-28-2024 Miscellaneous Notes Patient notified. Verbalized understanding. Ok. Gabapentin renewed. Agree with holding lisinopril. Andres- nurse- [facility]- reports patient needs refill sent on his gabapentin 300 mg. Pended. Andres reports patient hasn't been taking his lisinopril, because he thought pcp told him to stop taking it. Today BP 102/64 (45). Reports patient never received the BP cuff pcp ordered for him. And even if he did, he would not be able to check his own BP due to the neuropathy in his hands. Reports right now nurse visits once a week, and checks his BP, but checking BP is not considered a skilled need to insurance. Eventually they will have to decrease to monthly visits for catheter changes. documented in this encounter [facility] 03-28-2024 Telephone encounter Note Ok. Gabapentin renewed. Agree with holding lisinopril. [facility] 03-28-2024 Telephone encounter Note Andres- nurse- [facility]- reports patient needs refill sent on his gabapentin 300 mg. Pended. Andres reports patient hasn't been taking his lisinopril, because he thought pcp told him to stop taking it. Today BP 102/64 (45). Reports patient never received the BP cuff pcp ordered for him. And even if he did, he would not be able to check his own BP due to the neuropathy in his hands. Reports right now nurse visits once a week, and checks his BP, but checking BP is not considered a skilled need to insurance. Eventually they will have to decrease to monthly visits for catheter changes. [facility] 03-23-2024 Telephone encounter Note The following approved medication requests have been transmitted electronically. Requested Prescriptions Signed Prescriptions Disp Refills Blood Pressure Monitor 1 Each 0 Si Each once daily. Authorizing Provider: Marbella ZAIDI PA-C [facility] 03-23-2024 Miscellaneous Notes The following approved medication requests have been transmitted electronically. Requested Prescriptions Signed Prescriptions Disp Refills Blood Pressure Monitor 1 Each 0 Si Each once daily. Authorizing Provider: Marbella ZAIDI PA-C Patient notified. Verbalized understanding. States he has no way of taking his BP prior to taking his medication, he does not have a BP cuff. He takes care of his own medication. Patient has a follow up 05/08/2024 at 2:40pm Needs f/u in office- I haven't seen him since d/c from hospital. Hold Lisinopril if SBP < 100mmHg It would hurt to increase a little salt in diet on PT days to hold water in vessels. Please schedule in office follow up Duong Tineo PA-C Fidelia from [facility] returned call she is an OT. Patient tells her he is weak, light headed, he always has glass of water sitting by him. She is not sure how much fluids he is drinking. Patient will have PT visit later today, not sure of the time. Left message for Fidelia when she calls we need her to please speak with a nurse. Need more information about how patient is feeling. Fidelia with [facility] is calling Marbella Zaidi PA-C today to report patients blood pressure reading from yesterday 03/22 BP 95/69 documented in this encounter [facility] 03-23-2024 Telephone encounter Note Patient notified. Verbalized understanding. States he has no way of taking his BP prior to taking his medication, he does not have a BP cuff. He takes care of his own medication. Patient has a follow up 05/08/2024 at 2:40pm [facility] 03-23-2024 Telephone encounter Note Needs f/u in office- I haven't seen him since d/c from hospital. Hold Lisinopril if SBP < 100mmHg It would hurt to increase a little salt in diet on PT days to hold water in vessels. Please schedule in office follow up Duong Tineo PA-C [facility] 03-23-2024 Telephone encounter Note Fidelia from [facility] returned call she is an OT. Patient tells her he is weak, light headed, he always has glass of water sitting by him. She is not sure how much fluids he is drinking. Patient will have PT visit later today, not sure of the time. [facility] 03-23-2024 Telephone encounter Note Left message for Fidelia when she calls we need her to please speak with a nurse. Need more information about how patient is feeling. [facility] 03-23-2024 Telephone encounter Note Fidelia with [facility] is calling Marbella Zaidi PA-C today to report patients blood pressure reading from yesterday 03/22 BP 95/69 [facility] 03-22-2024 Telephone encounter Note Called patient. Patient states he wants to keep the catheter. Patient was offered an appointment to get this changed and he denied the offer stating he would make arrangements to have this done. (Wants it closer than [place]) it was explained that catheter had to be changed by 04/09. The importance was stressed to do so to attempt to prevent infections. Patient states he would think about all this and call back if he was unable to set something else up. [facility] 03-22-2024 Miscellaneous Notes Called patient. Patient states he wants to keep the catheter. Patient was offered an appointment to get this changed and he denied the offer stating he would make arrangements to have this done. (Wants it closer than [place]) it was explained that catheter had to be changed by 04/09. The importance was stressed to do so to attempt to prevent infections. Patient states he would think about all this and call back if he was unable to set something else up. Team - Can you reach out to patient. Seen by Dr. Moore for Cysto/TRUS. The total prostate volume was 68.1 gm Disposition / Plan: -Patient feels quite content with maintaining indwelling Hancock catheter at this time. -Based on anatomy and degree of prostate obstruction he is a candidate for minimally invasive surgical procedure such as Rezum, or greenlight laser PVP. He missed his follow up appt with me. I recommend a consult with our Urology Surgeons at [place] to see if he is a good candidate for minimally invasive procedure for his BPH. HH last changed Hancock on 03/10. At follow up appt his hancock can be changed out if you can schedule him within the next 3 weeks. Bharathi Wiggins DNP, MYAR Department of Urology [facility] Call to HH nurse. He states that the current hancock has been in since 03/10. Pt would like to keep it in due to keeping him clean and dry and not at fall risk going to the bathroom. PCP gave hancock orders. HH just needs to know if this will most likely be chcf, if office will do changes or HHS. Nurse is looking into whether or not insurance will cover cath changes in the home. Jocelin is the neighbor that does all of his errands and makes his appts her number is [phone] if we need to contact her. Zita Mobley MA Team - Yes I can. He missed his follow up appt with me 2 weeks ago. Please call and find out what tpye of catheter they are using and size. Bharathi Wiggins DNP, DIRECTOR OF TESTING Department of Urology [facility] See message below. Pt had cystoscopy done 02/08 and failed voiding trial at that time. Are you willing to give catheter orders for home health? Please review and advise. Zita Mobley MA Pt has been in the [facility] recently. He has a catheter. [facility] Health called to ask about catheter care. He did not know if we wanted them to assess and take care of it or if pt should be seen for care here. Ray is the person to reach out to at [phone] Ray also indicates that the Occupational Therapist has stated that pt has an updated phone number as well. Updated and noted to confirm with pt. documented in this encounter [facility] 03-22-2024 Telephone encounter Note Team - Can you reach out to patient. Seen by Dr. Moore for Cysto/TRUS. The total prostate volume was 68.1 gm Disposition / Plan: -Patient feels quite content with maintaining indwelling Hancock catheter at this time. -Based on anatomy and degree of prostate obstruction he is a candidate for minimally invasive surgical procedure such as Rezum, or greenlight laser PVP. He missed his follow up appt with me. I recommend a consult with our Urology Surgeons at [place] to see if he is a good candidate for minimally invasive procedure for his BPH. HH last changed Hancock on 03/10. At follow up appt his hancock can be changed out if you can schedule him within the next 3 weeks. Bharathi Wiggins DNP, MYRA Department of Urology [facility] 03-21-2024 Telephone encounter Note Patient notified as well as Jocelin Jiménez. Verbalized understanding. Also left message for Ray GIBSON, to call back to receive message. Patient is scheduled for April with pcp. [facility] 03-21-2024 Miscellaneous Notes Patient notified as well as Jocelin Jiménez. Verbalized understanding. Also left message for Ray GIBSON, to call back to receive message. Patient is scheduled for April with pcp. If patient has SBP hold PT Please advise patient need to be well hydrated and may need to add some salty foods to maintain blood pressure. I haven't seen him since his discharge. Needs f/u in office. Thanks, Duong Zaidi PA-C Ray with [facility] called to let you know he saw pt this am and pt's blood pressure was 86/56. Pt symptomatic with not feeling well, dizzy and light headed. Andres reports pt's blood pressure has been running low. Ray help pt get in to bed to lay flat to help BP come down. Andres reports [facility] social services technician will be seeing pt today at 1pm. Pt has taken his medications and not missed any doses. Pt did take a meclizine also. Please advise pt and Ray if there are further instructions. Zita Palmer LPN documented in this encounter [facility] 03-21-2024 Telephone encounter Note If patient has SBP hold PT Please advise patient need to be well hydrated and may need to add some salty foods to maintain blood pressure. I haven't seen him since his discharge. Needs f/u in office. Thanks, Duong Zaidi PA-C [facility] 03-21-2024 Telephone encounter Note Call to nurse. He states that the current hancock has been in since 03/10. Pt would like to keep it in due to keeping him clean and dry and not at fall risk going to the bathroom. PCP gave hancock orders. HH just needs to know if this will most likely be chcf, if office will do changes or HHS. Nurse is looking into whether or not insurance will cover cath changes in the home. Jocelin is the neighbor that does all of his errands and makes his appts her number is [phone] if we need to contact her. Zita Mobley MA [facility] 03-21-2024 Telephone encounter Note Ray with [facility] called to let you know he saw pt this am and pt's blood pressure was 86/56. Pt symptomatic with not feeling well, dizzy and light headed. Andres reports pt's blood pressure has been running low. Ray help pt get in to bed to lay flat to help BP come down. Andres reports [facility] social services technician will be seeing pt today at 1pm. Pt has taken his medications and not missed any doses. Pt did take a meclizine also. Please advise pt and Ray if there are further instructions. Zita Palmer LPN [facility] 03-21-2024 Telephone encounter Note Team - Yes I can. He missed his follow up appt with me 2 weeks ago. Please call and find out what tpye of catheter they are using and size. Bharathi Wiggins DNP, DIRECTOR OF TESTING Department of Urology [facility] 03-21-2024 Telephone encounter Note See message below. Pt had cystoscopy done 02/08 and failed voiding trial at that time. Are you willing to give catheter orders for home health? Please review and advise. Zita Mobley MA [facility] 03-20-2024 Telephone encounter Note Left detailed message on identifiable voicemail as instructed. [facility] 03-20-2024 Miscellaneous Notes Left detailed message on identifiable voicemail as instructed. Reviewed and approve ThanksDuogn PA-C Linnette with [facility] OT calling regarding patient. OT plan of care: OT to see patient 2 times per week for 3 weeks then 1 time for 1 week for transfers, ADLs, safety and home exercises.No call back needed if provider agreeable with plan. Requesting an order for Speech Therapy evaluation for patient due to memory deficit. Please call Linnette with approval of order at [phone]. May leave a detailed message on this secure line. Thank you. documented in this encounter [facility] 03-20-2024 Telephone encounter Note Reviewed and approve Thanks, Duong Zaidi PA-C [facility] 03-20-2024 Telephone encounter Note Linnette with [facility] OT calling regarding patient. OT plan of care: OT to see patient 2 times per week for 3 weeks then 1 time for 1 week for transfers, ADLs, safety and home exercises.No call back needed if provider agreeable with plan. Requesting an order for Speech Therapy evaluation for patient due to memory deficit. Please call Linnette with approval of order at [phone]. May leave a detailed message on this secure line. Thank you. [facility] 03-20-2024 Telephone encounter Note Pt has been in the [facility] recently. He has a catheter. [facility] called to ask about catheter care. He did not know if we wanted them to assess and take care of it or if pt should be seen for care here. Ray is the person to reach out to at [phone] Ray also indicates that the Occupational Therapist has stated that pt has an updated phone number as well. Updated and noted to confirm with pt. T [facility] Work Phone: 03-17-2024 Telephone encounter Note Left detailed message on confidential vm Karis Larson MA [facility] 03-17-2024 Miscellaneous Notes Left detailed message on confidential vm Karis Larson MA Agree with social services technician involvement. Kate from [facility] Social Work calling asking for verbal order for one social work visit weekly for 2 weeks please. Please advise documented in this encounter [facility] 03-17-2024 Telephone encounter Note Spoke to Jocelin and she was notified Karis Larson MA [facility] 03-17-2024 Miscellaneous Notes Spoke to Jocelin and she was notified Karis Larson MA Please let patient know that his chronic anemia is improving. Hemoglobin up to 12.1. Kidney function liver function and electrolytes and thyroid all look normal. His albumin level is a little low. Please try to incorporate more protein into his diet even if he needs to get a supplement such as [place] breakfast drink, whey protein, peanut butter. Patient did ask that we call Nicole with results. [phone] documented in this encounter [facility] 03-17-2024 Telephone encounter Note Please let patient know that his chronic anemia is improving. Hemoglobin up to 12.1. Kidney function liver function and electrolytes and thyroid all look normal. His albumin level is a little low. Please try to incorporate more protein into his diet even if he needs to get a supplement such as [place] breakfast drink, whey protein, peanut butter. Patient did ask that we call Nicole with results. [phone] [facility] 03-17-2024 Telephone encounter Note Agree with social services technician involvement. [facility] 03-16-2024 Telephone encounter Note Kate from [facility] Social Work calling asking for verbal order for one social work visit weekly for 2 weeks please. Please advise [facility] 03-16-2024 Telephone encounter Note Carly notified with [facility] 03-16-2024 Miscellaneous Notes Carly notified with [facility] I agree and approve Duong Tineo PA-C Carly - [facility]- asking for OT eval, delay of care due to scheduling, verbal approval. Please phone verbal to [phone] documented in this encounter [facility] 03-16-2024 Telephone encounter Note I agree and approve Duong Tineo PA-C [facility] 03-16-2024 Telephone encounter Note Carly - [facility]- asking for OT eval, delay of care due to scheduling, verbal approval. Please phone verbal to [phone] [facility] 03-15-2024 Telephone encounter Note Spoke to Ray and gave provider message below Karis Larson MA [facility] 03-15-2024 Miscellaneous Notes Spoke to Ray and gave provider message below Karis Larson MA Without knowing all details. Quick review of chart his hancock is listed as chronic indwelling and I note he had an appt to see urology. That may need reset up and keep in at least until he sees them. While in would change hancock monthly and prn. Ok for skilled care. No nsaids for now. They were held due to his renal function I believe. Can use tylenol \ Ok to use all the other meds. See below. Andres from [facility] calling to ask if this was addressed? He is asking for verbal order for Social Work. Patient is having problems getting meals and transportation. Patient is taking old rx for Naproxen he has at home for pain, asking if patient should be taking Naproxen? Please advise Rachel nurse from [facility] called back on looking for answers.. Please go all the way to the bottom of notes to see from nurse Rachel needs answers for her questions. FYI-Saw Christy on 03/13/24 and trazodone was increased to 100mg. See below message regarding the Naproxen and the drug interactions. Zita Palmer LPN Yes, I will Thanks, Duong Zaidi PA-C 1) Winifred a nurse with [facility] calls today to report pt states he is having trouble getting meals and transportation so Winifred is asking for a VO for SW to see pt. OK to call office with VO: [phone]. 2) Winifred is also asking about Naproxen that pt is taking. As per message below. Asking for a new rx if pt is supposed to be taking or let her know if he is not to be taking Naproxen. Ok to call Winifred or office with pcp message. Melody Urbano LPN Rachel with [facility] calling to let you know she admitted pt over the weekend to home health. Issues below 1)Pt was sent home with a cath from the hospital with no orders. Rachel needs to know how long to leave in, referral to Urology and any other orders you would like to give regarding this. Pt has history of neurogenic bladder. Requesting orders 2)plan of care skilled visits 2 times a week for 1 week then 1 time a week for 3 weeks. Verbal order needed. 3)Pt was taking Naproxen 500 mg bid and at some point he was removed from this and pt would like to know if he can start taking this again. Also pt is taking Ibuprofen 400 mg as needed twice a day. Please advise what pt can take. 4)Drug to Drug interaction Pt takes Meclizine and coming home from the hospital he was started on Potassium. Please advise. 5)duplicate treatment pt is taking Trazodone and Wellbutrin. Please advise 6) Drug allergy coming up pt takes Amlodipine and has an allergy listed for Cardizem. Please advise. Pt has a follow up apt today 03-13-24. Zita Palmer LPN documented in this encounter [facility] 03-15-2024 Telephone encounter Note Without knowing all details. Quick review of chart his hancock is listed as chronic indwelling and I note he had an appt to see urology. That may need reset up and keep in at least until he sees them. While in would change hancock monthly and prn. Ok for skilled care. No nsaids for now. They were held due to his renal function I believe. Can use tylenol \ Ok to use all the other meds. See below. [facility] Work Phone: 03-15-2024 Telephone encounter Note Andres from [facility] calling to ask if this was addressed? He is asking for verbal order for Social Work. Patient is having problems getting meals and transportation. Patient is taking old rx for Naproxen he has at home for pain, asking if patient should be taking Naproxen? Please advise [facility] 03-15-2024 Telephone encounter Note Rachel nurse from [facility] called back on looking for answers.. Please go all the way to the bottom of notes to see from nurse Rachel needs answers for her questions. [facility] 03-15-2024 Telephone encounter Note Reviewed and approve Duong Tineo PA-C [facility] 03-15-2024 Miscellaneous Notes Reviewed and approve Duong Tineo PA-C Marjan from [facility] calling with PT plan of care, 2 visits weekly for 4 weeks. Working on lower extremity strengthening, gait and transfer training, balance and endurance. documented in this encounter [facility] 03-15-2024 Telephone encounter Note Marjan from [facility] calling with PT plan of care, 2 visits weekly for 4 weeks. Working on lower extremity strengthening, gait and transfer training, balance and endurance. [facility] 03-15-2024 Telephone encounter Note DEBRAI-Saw Christy on 03/13/24 and trazodone was increased to 100mg. [facility] 03-15-2024 Telephone encounter Note See below message regarding the Naproxen and the drug interactions. Zita Palmer LPN [facility] 03-14-2024 Telephone encounter Note Yes, I will ThanksDuong PA-C [facility] 03-14-2024 Telephone encounter Note 1) Winifred a nurse with [facility] calls today to report pt states he is having trouble getting meals and transportation so Winifred is asking for a VO for SW to see pt. OK to call office with VO: [phone]. 2) Winifred is also asking about Naproxen that pt is taking. As per message below. Asking for a new rx if pt is supposed to be taking or let her know if he is not to be taking Naproxen. Ok to call Winifred or office with pcp message. Melody Ubrano LPN [facility] 03-13-2024 Instructions Corrie Marinelli APRN.LOAN COLLECTOR - 03/13/2024 2:39 PM EDT 1) Get labs 2) Increase trazodone 100 mg at bedtime 3) Follow up in in April documented in this encounter [facility] 03-13-2024 Note [facility] 03-13-2024 History of Present illness Narrative This is a 73 year old male who presents today with: Patient presents with: Hospital F/U: [facility] d/c 03/10/24 HISTORY OF PRESENT ILLNESS: Miroslava Peralta is a 73 year old male. Patient presents with: Hospital F/U: [facility] d/c 03/10/24 Had UTI, went rehab for 3 weeks. Also had viral pneumonia. Rehab did not really help. Not sleeping good, would like to increase trazodone. REVIEW OF SYSTEMS GENERAL: Gained a couple pounds in rehab, + always malaise, no fevers/chills, mostly in wheelchair- home PT already ordered HEENT: Negative for frequent or significant headaches, No changes in hearing, changes vision. NECK: Negative for lumps, goiter, pain and significant neck swelling RESPIRATORY: Non-productive cough, hemoptysis, wheezing, dyspnea or shortness of breath CARDIOVASCULAR: Negative for chest pain, leg swelling, orthopnea, or palpitations GI: No nausea, vomiting, or diarrhea/ + constipation from iron. No hematochezia/melena. No heartburn or reflux symptoms. : No history of dysuria, frequency or incontinence MUSCULOSKELETAL: All over muscle aches and joint pain SKIN: Negative for lesions, rash, and itching Bruising under the skin ENDOCRINE: Negative for cold or heat intolerance, polyuria, polydipsia and goiter- always cold NEURO: No history of headaches, syncope, paralysis, seizures or tremors MOOD: Negative for depression, anxiety, or suicidal ideation. PAST MEDICAL HISTORY: PAST MEDICAL HISTORY Diagnosis Date Acute pharyngitis, unspecified Acute posthemorrhagic anemia Arthritis 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 Bilateral primary osteoarthritis of hip BPH without obstruction/lower urinary tract symptoms Chronic hepatitis C without hepatic coma (HCC) 01/05/2019 10/10/2021 Hep C not detectable 06/16/[address] Augustine. Completed treatment. 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 Dysphagia, oral phase Hip arthritis History of transfusion HTN (hypertension) Well controlled on medication--Managed by PCP Hydronephrosis, unspecified hydronephrosis type Insomnia, unspecified Leukocytosis 11/22/1986 [place] admission - thought leukemia and he refused tests Overflow incontinence of urine S/P hip replacement PAST SURGICAL HISTORY Procedure Laterality Date ARTHRP ACETBLR/PROX FEM PROSTC AGRFT/ALGRFT Right 07/25/2014 Hip replacement, total, right BACK SURGERY HX Lumbar spine surgery COLONOSCOPY 07/16/2003 random biopsies negative COLONOSCOPY FLX DX W/COLLJ SPEC WHEN PFRMD 06/27/2013 Colonoscopy JOINT REPLACEMENT HX Right Total shoulder-- PAST SURGICAL HISTORY OF 1997 shoulder surgery bilateral PAST SURGICAL HISTORY OF 1997 tendon repair bilat elbows. SKIN BIOPSY HX ALLERGIES Cardizem [Diltiazem Hcl], Diovan [Valsartan], Hyzaar [Losartan-Hydrochlorothiazide], and Lopressor [Metoprolol Tartrate] MEDICATIONS Current Outpatient Medications Medication Sig potassium chloride ER (KLOR-CON) 20 mEq tablet Take 1 tablet by mouth once daily. meclizine (ANTIVERT) 12.5 mg tab Take 1 tablet by mouth three times a day. ferrous sulfate EC 324 mg (65 mg iron) TbEC Take 1 tablet by mouth two times a day with meals. gabapentin (NEURONTIN) 300 mg capsule Take 2 capsules by mouth three times a day for 90 days. tamsulosin (FLOMAX) 0.4 mg Take 1 capsule by mouth daily at bedtime. lisinopril (ZESTRIL) 20 mg tablet Take 1 tablet by mouth once daily. (Patient taking differently: Take 20 mg by mouth every morning.) amLODIPine (NORVASC) 10 mg tablet Take 1 tablet by mouth once daily. (Patient taking differently: Take 10 mg by mouth every morning.) traZODone (DESYREL) 50 mg tablet Take 1 tablet by mouth daily at bedtime. buPROPion XL (WELLBUTRIN XL) 300 mg 24 hr tablet Take 1 tablet by mouth once daily. (Patient taking differently: Take 300 mg by mouth every evening.) polyethylene glycol 3350 17 gram packet Take 17 g by mouth once daily. Dissolve dose in 4 - 8 ounces of liquid and take as directed. senna (SENOKOT) 8.6 mg tab Take 1 tablet by mouth twice daily as needed for constipation. acetaminophen (TYLENOL) 325 mg tablet Take 2 tablets by mouth every 6 hours as needed (mild pain or fever >100). (Patient taking differently: Take 650 mg by mouth every 6 hours as needed (mild pain or fever >100). 500 MG- two by mouth every eight hours as needed) testosterone (ANDROGEL) 50 mg / 5 g (1%) Apply 1 Packet as directed once daily for 90 days. (Patient not taking: Reported on 03/13/2024) Catheter (BARD COUDE TIP CATHETER) 16 Fr misc ISC 2-3 x per day for urinary retention Melatonin 5 mg cap Take 1 capsule by mouth daily at bedtime. (Patient not taking: Reported on 03/13/2024) menthol/camphor (BIOFREEZE TOPICAL) Apply to affected area three times daily. Apply to posterior hand and right scapula for pain and order to apply every four hours as needed for pain not to exceed more than four total applications per day. No current facility-administered medications for this visit. FAMILY HISTORY Problem Relation Age of Onset Cancer Mother breast cancer Hypertension Mother None Father father in train accident at yuni age Hypertension Sister Social History Tobacco Use Smoking status: Former Packs/day: 2.00 Years: 23.00 Additional pack years: 0.00 Total pack years: 46.00 Types: Cigarettes Quit date: 11/22/1992 Years since quittin.3 Passive exposure: Never Smokeless tobacco: Never Vaping Use Vaping Use: Never used Substance Use Topics Alcohol use: Not Currently Comment: quit in 1991. Drug use: Not Currently Comment: Quit drugs in . Quit tobacco 30-40 years ago EXAM: BP 108/62 Pulse 85 Temp 36.4 C (97.5 F) (Left Tympanic) Resp 14 Wt 97.5 kg (215 lb) SpO2 97% BMI 29.99 kg/m PHYSICAL EXAM: General Appearance: Well appearing, alert, in no acute distress, well-hydrated, well nourished.. Skin: Skin color, texture, turgor normal, no suspicious rashes or lesions, Right great toenail is hanging. Head: Normocephalic, no masses, lesions, tenderness or abnormalities. Eyes: Anicteric sclera. Pupils are equally round and reactive to light. Extraocular movements are intact. , Blind in right eye. Back: Progressive weakness, started in legs and climbing to arms- periphery Lungs: Lungs clear to auscultation. No wheezing, rhonchi, rales.. Heart: RRR without murmur, gallop, or rubs. No ectopy. Abdomen: Normal abdominal exam, Abdomen soft, non-tender. Bowel sounds normal. No masses, organomegaly. Neurologic: Gait normal. Reflexes normal and symmetric. Sensation not intact., Positive findings: abnormal muscle tone and progressive numbness and tingling legs up and fingers up. LABS: get labs ASSESSMENT/PLAN: 1. Sleeping difficulty - ICD9: 780.50, ICD10: G47.9 (primary diagnosis) ongoing - MELATONIN 5 MG CAPSULE - TRAZODONE 100 MG TABLET 2. Paresthesia of saddle area: Cauda equina ruled out - ICD9: 782.0, ICD10: R20.2 ongoing 3. Primary hypertension - ICD9: 401.9, ICD10: I10 - Controlled - Recommend home blood pressure monitoring, to bring results to next visit - Encouraged sodium restriction, DASH or Mediterranean diet - Recommend regular aerobic exercise - POTASSIUM CHLORIDE ER 20 MEQ TABLET,EXTENDED RELEASE(PART/CRYST) 4. Progressive focal motor weakness - ICD9: 728.87, ICD10: R53.1 Awaiting cervical fusion, consider MG - ACETYLCHOLINE RECEPTOR MODULATING ANTIBODY - COMPLETE BLOOD COUNT AND DIFFERENTIAL - COMPREHENSIVE METABOLIC PANEL - MAGNESIUM - VITAMIN B12 - THYROID STIMULATING HORMONE Discussed treatment plan and patient voices understanding. Patient's questions answered appropriately. Medications and potential side effects were discussed and patient voices understanding. Return to the office as scheduled or as needed for worsening/no improvement. Corrie Marinelli APRN.CNS The patient indicates understanding of these issues and agrees with the plan. documented in this encounter [facility] 03-13-2024 Telephone encounter Note Rachel with [facility] calling to let you know she admitted pt over the weekend to home health. Issues below 1)Pt was sent home with a cath from the hospital with no orders. Rachel needs to know how long to leave in, referral to Urology and any other orders you would like to give regarding this. Pt has history of neurogenic bladder. Requesting orders 2)plan of care skilled visits 2 times a week for 1 week then 1 time a week for 3 weeks. Verbal order needed. 3)Pt was taking Naproxen 500 mg bid and at some point he was removed from this and pt would like to know if he can start taking this again. Also pt is taking Ibuprofen 400 mg as needed twice a day. Please advise what pt can take. 4)Drug to Drug interaction Pt takes Meclizine and coming home from the hospital he was started on Potassium. Please advise. 5)duplicate treatment pt is taking Trazodone and Wellbutrin. Please advise 6) Drug allergy coming up pt takes Amlodipine and has an allergy listed for Cardizem. Please advise. Pt has a follow up apt today 03-13-24. Zita Palmer LPN [facility] 03-10-2024 Miscellaneous Notes Verbal order given to Marjan and pt is already given. uYdy Nelson MA Ok. Needs hospiital follow up as well with one of the team members for 40 minutes. Marjan from [facility] Home health calling received orders from [facility] T[facility] for jail, PT/OT. Patient discharging today had UTI, weakness. Asking if Dr Ackerman would follow patient and sign orders? Starting with services on Wednesday03/11/2024. Please advise documented in this encounter [facility] 03-06-2024 History of Present illness Narrative No show for appt. documented in this encounter [facility] 03-06-2024 Note HNO ID: [id number] Author: BHARATHI WIGGINS APRN.RENE RENTERIA Service: ? Author Type: Nurse Practitioner Type: Progress Notes Filed: 03/07/2024 08:55 Note Text: No show for appt. [facility] 03-02-2024 Miscellaneous Notes Patient daughter Ailin called Sw and notes that patient is going to be starting to receive Meals on Wheels, just needs to decide how many days a week patient would like meals delivered to the home.Ailin reports that she just was able to finalize patient home delivered meals, has been having trouble connecting with [facility]. Ailin reports that now, just needs to discuss with patient how many times a week he would like meals delivered. documented in this encounter [facility] 02-24-2024 Note [facility] 02-24-2024 History of Present illness Narrative Contacted patient, He is currently in hospital with severe infection and other health issues. Not interested for now. Will be seeing Dejuan 05-08-24 Monse Guzman COLONOSCOPY PATIENT OUTREACH Action/ Colonoscopy Recall Patient identified by Name and : Yes. OUTREACH OUTCOME ACTION: Consult- Telephone Call- Pt is overdue for screening colonoscopy. Pt needs consult due to medical history and/or medications. Please call patient and schedule appointment with General Surgery Provider. Erin Gaines RN documented in this encounter [facility] 02-24-2024 Note [facility] 02-14-2024 Miscellaneous Notes Patient daughter Ailin called and notes that [employer] chemical manager called her back today and noted that she was sending message to [employer] intake staff to reach out to daughter to arrange home delivered meals. Ailin notes that if she needs more assistance with home delivered meals she will reach out to SW. documented in this encounter [facility] 02-09-2024 Miscellaneous Notes Thank you for the referral of your patient to [facility]. At this time, we are at capacity and are unable to accept your patient. In order to help your patient receive quality home care, we have included reputable agencies that service this area: [facility], Phone number [phone] or [facility], phone number [phone]. Please contact this agency and they will work with your patient to arrange timely services. Thank you, Zeina Abdullahi LPN 02/09/2024 6:08 PM documented in this encounter [facility] 02-09-2024 Nurse Note CYSTOSCOPY PROCEDURE History and physical exam within the last 30 days: yes. Exam notes reviewed: yes Risks, benefits, alternatives, and personnel discussed with patient who consents to proceed with Cystoscopy and Transrectal ultrasound of the prostate exam . Patient verified by name and date of : Yes Procedure/Site verified: Yes Physician: Dr. Dennis Moore Asst: Valentin Akhtar Ma Audible Time Out: Yes Anesthetics given: 10 cc 2% Lidocaine-Urethral and Administered by nurse - see Pre-Procedure Nurse's Notes. Operative Findings Urethra: Normal Prostate:Bilobar hypertrophy Bladder: no stones, no tumors, no lesions, trabeculated Radiologic Studies Urogram: N/A Complications: None Recommendations: Discussed findings with patient TRUS PROCEDURE without Biopsy History and physical exam within the last 30 days: yes. Exam notes reviewed: yes Informed consent obtained YES. Discussed procedure, risks, and options with patient. Patient agrees to proceed. Pre-Op Diagnosis: Urinary retention Anesthetic given: None Findings Prostate volume: 68.40 grams Complications: None Recommendations: Discussed findings with patient. Post Procedure Evaluation Condition Post Procedure: satisfactory Post Procedure Medications: none Comments: Follow up with MYRA Alonzo Ma documented in this encounter [facility] 02-09-2024 Note [facility] 02-09-2024 History of Present illness Narrative Images from the original note were not included. [facility] UROLOGY PROCEDURE NOTE FLEXIBLE CYSTOURETHROSCOPY AND TRUS UROLOGY OUTPATIENT PROCEDURE NOTE UNIVERSAL PROTOCOL AND SAFETY CHECKLISTUNIVERSAL PROTOCOL / SAFETY CHECKLIST Procedure to be Performed: Cysto/TRUS Sign In: A Moment of CARE was completed. Personnel directly involved with the procedure wore the appropriate PPE (Personal Protective Equipment). Patient/Surrogate Stated/Verified: PATIENT VERIFIED(optional for EMERGENT procedures): Patient name, Date of , Relevant allergies and The intended procedure Time Out Communication: Intended patient and procedure match the source documents. Consent documented and matches the intended procedure. Sign Out: SIGN OUT (optional for EMERGENT procedures): All specimen containers correctly labeled. PHYSICIAN NOTE: FLEXIBLE CYSTOURETHROSCOPY AND TRANSRECTAL ULTRASOUND PROCEDURE DATE: February 09, 2024 FINDINGS Urethra: Normal Sphincter: Normal / Coapted Prostate: Enlarged Lateral Lobes / Enlarged Median Lobe Bladder Neck: Patent Urothelium: normal appearing, no evidence of tumor, no erythema, no foreign body Trabeculation: Yes Inflammation: Yes, mild from catheter Diverticulum: No Ureteral Orifices: normal appearing, orthotopic position, clear efflux bilaterally Trigone: normal appearing Procedure: Flexible cystoscopy and transrectal ultrasound Anesthesia: Lidocaine Gel Procedure Details: In the cystoscopy suite, the patient was placed in the supine position, prepped, and draped in the usual manner. Lidocaine gel was placed per urethra for local anasthesia. No verna-procedural antibiotics were given. Cystourethroscopy was performed using a flexible scope. Sterile technique was maintained throughout. The urethra, prostate, and bladder were inspected in their entirety. Specific findings from the procedure are detailed in the corresponding section of this note. The cystoscope was carefully removed. The patient was placed in the lateral decubitus position. Digital rectal exam was normal. The ultrasound probe was placed into the rectum and the prostate visualized. The prostate was visualized in sagittal and transverse planes and no hypoechoic lesion identified. The total prostate volume was 68.1 gm Complications: None Estimated Blood Loss: None Preoperative diagnosis: BPH with obstruction Postoperative diagnosis: Same Disposition / Plan: -Patient had catheter removed prior to the start of the procedure. -Approximately 250cc of water was infused into the bladder during the cystoscopy procedure. Patient was unable to void on his own shortly thereafter so Hancock catheter was replaced. -Patient feels quite content with maintaining indwelling Hancock catheter at this time. -Based on anatomy and degree of prostate obstruction he is a candidate for minimally invasive surgical procedure such as Rezum, or greenlight laser PVP. -Patient has been recommended to follow-up with Luis Alfredo Wiggins CNP in 4 weeks. If patient maintains catheter then they can be replaced at that time. Dennis Moore MD, MS Associate Staff [facility] Cc: Luis Alfredo Wiggins CNP documented in this encounter [facility] 02-08-2024 Miscellaneous Notes Placed orders. I didn't know if there were any other local resources you like. Thanks! Duong You could addend Home Health Order for our [facility] and see if they have availability to accept patient. Rudolph Zacarias, Any suggstions outside [place]. I'm lost hen it comes to what's avaialble. Thanks Duong Carly with [facility] called in and reports they will not be able to accept the Pt as they do not have any availability. documented in this encounter [facility] 02-08-2024 Miscellaneous Notes Sw received message from patient daughter Ailin. Ailin states that she thinks she has figured out the [employer]. Antonio noted that [employer] is through [facility]. Ailin notes that she spoke with [employer] and asked that when they drop off meals for patient to be patient as it takes him some time to get to the door. Antonio noted that [employer] are another meal plan option that patients have used. If [employer] for whatever option does not work out, [employer] may be another option. Sw noted to patient daughter that if she needs further assistance with Me[employer] Whe[employer] or other home delivered meal options to let this Sw know. Ailin reports that she has spoken with patient about moving to [place] to live with her. Patient has not be open as of yet to moving. Ailin noted that she told patient that if he lives with her there would always be someone around to help patient. Ailin thanked Sw for call and will let ANTONIO and or AMANDO Watters know if patient has any further needs. documented in this encounter [facility] 02-07-2024 Miscellaneous Notes Images from the original note were not included. Marbella Zaidi PA-C [facility] Dejuan Moise Please let him know I placed fasti orders for 3 month follow up Jocelin Jiménez notified, verbalized understanding. documented in this encounter [facility] 02-07-2024 Miscellaneous Notes Spoke with Jocelin Jiménez and advised her of the weaning process. She was advised to call back if he does not improve or gets worse. Yudy Nelson Ma He can wean off by dropping 1 capsule every other day. I am fine with that as long as he isn't feeling worse. Thanks, Duong Zaidi PA-C Spoke with Jocelin Jiménez, patients friend/neighbor (ok per chart to discuss medical information). Jocelin jiménez concerned about patients intermittent dizziness. She feels the Gabapentin is contributing to this. She states Don does state that the Gabapentin does not do much for his pain. She is wondering if they could slowly wean him off this to see if it makes a difference in the dizziness? Advise. Needs Handicap placard renewed. Steff Dominguez MA documented in this encounter [facility] 02-04-2024 Miscellaneous Notes Jocelin informed and verbalized understanding. Steff Dominguez MA Let him know medicare won't cover testosterone. Thanks, Duong Zaidi PA-C Images from the original note were not included. This was denied. You asked for the drug above for your Late-onset (age-related) hypogonadism. This is an off-label use that is not medically accepted. The Medicare rule in the Prescription Drug Benefit Manual (Chapter 6, Section 10.6) says a drug must be used for a medically accepted indication (covered use). Off-label use is medically accepted when there is proof in one or more of the drug guides that the drug works for your condition. We look at the two major drug guides (compendia): the DRUGDEX Information System and the [facility] Formulary Service Drug Information (AHFS-DI). Trevor has decided that there is no proof in either drug guide that this drug works for your condition. Per Medicare rules, it is not covered. Payer: [employer] [phone] Electronic appeal: Not supported View History Medication Being Authorized testosterone (ANDROGEL) 50 mg / 5 g (1%) Apply 1 Packet as directed once daily for 90 days. Dispense: 150 g Refills: 2 Start: 02/03/2024 End: 05/03/2024 Class: Normal Diagnoses: Hypogonadism in male This order has been released to its destination. To be filled at: [facility] [id number] - [place] [address] - [phone] - [phone] Electronic PA completed for testosterone (ANDROGEL) 50 mg / 5 g (1%) documented in this encounter [facility] 02-03-2024 Miscellaneous Notes Sw was able to be on speaker phone with patient and daughter Ailin. Both Ailin and patient note that they feel like home health services would be helpful with PT services and help with medication set up. Ailin notes that home health was spoken about today when patient was in to see AMANDO Watters. Antonio notes that [facility] is often a first choice for HH services. They have jail, PT/OT, and option for SW to come in to the home. Sw will send note to AMANDO Watters to let him know that this Sw discussed this information with patient and daughter. Antonio also discussed [employer] and Ailin took down their number to reach out to [facility] [place] to see about in home assessment to see if patient could receive assistance from Caregiver Support program or Passport through [facility] Agency on Aging. Sw and daughter also discussed [employer] as they provide trailers and motor homes salesperson assistance. Antonio noted that many trailers and motor homes salesperson agencies are self pay unless a person qualifies for [employer] support. Ailin took down Sw direct number if patient/family has any other social service needs. Antonio called Singh and he reports that he is not with patient as patient has family visiting now from out of state. Singh notes that patient daughter is visiting him for a few days. Singh is going to give patient and patient daughter Sw direct number to reach back out to to discuss patient home care needs. Antonio called patient home phone number and it is no longer a working number. Antonio tried contact Jocelin and that vmail is full. Antonio called Singh and he answered, but is a work. Avril asks that Sw call him back tomorrow 3/13 @11am and he can be with patient so that Sw may speak with patient. Sw notes that she will place appt on calendar to reach out to patient tomorrow at 11am to discuss home care needs. documented in this encounter [facility] 02-03-2024 Note [facility] 02-03-2024 History of Present illness Narrative 73 year old male with c/o Hospital discharge follow-up Facility: [facility] Admission date 01/09/2024 Discharge date 01/12/2024 Admission diagnoses: 1. UTI secondary to Providencia stuartii related to self cathing following progressive weakness and decline, history of femur fracture and then spine surgery. Patient was treated with Rocephin transition to cefdinir. Patient is self cathing with some difficulty. Remains weak, recommended SNF placement 2. Acute MUNA likely related to dehydration, improved with IV fluids with downward trending to discharge creatinine of 1.66. 3. Essential hypertension: Controlled: Home medications continued 4. Anxiety and depression: Home medications continued Hospital Course: Patient presented to emergency department 01/09/2024 increasing weakness over the last couple of days, 1-2 episodes of loose stool a day, incontinent. Started self cathing 1.5 weeks ago related to retention concern about UTI. Does not ambulate independently but gets around with use of wheelchair and can get himself on and off the commode. For 2 days has not been out of bed. Vomited once related to medications. Has had a mild cough. Patient has been warming up meals on is still from his wheelchair, poor intake. From the ER exam records: Vital signs: 96.8 F-[id number]/60-94% RA Notes indicate normal findings other than generalized weakness CBC abnormals: WBC 16.6 H-RBC 3.5L-Hgb 9.9L-HCT 30.9, RDW STD 50.0 H, neutrophil percent 87.3 H, lymph percent 4.0L, absolute neutrophil 4.4H, absolute lymphs 0.66L Chemistry abnormals: Sodium 132 L-BUN 43 H-creatinine 2.4H, eGFR 28 L-GLU 132 H UA: Greater than 25-50 WBCs RBCs, greater than 100 WBCs, 4+ bacteria Chest x-ray: No acute pulmonary process Patient was treated with Rocephin in the ER Decision was made to admit. Treatment as above: Discharge weight 218 pounds 7.649 ounces, BMI 30.4 01/12/2024: CBC: WBC 8.0-Hgb 9.6L-HCT 30.7 L-PLT 262 Chem: NA 137-CL 110 H-K4.1-CO2 22.0-BUN 34 H-CRE 1.66H, GFR 43 L, BUN/creatinine ratio 20.5 H-GLU 107-Ca 9.3 01/09/2024 blood culture no growth in 48 hours 01/09/2024 Urine culture: Providencia stuartii 01/09/2024 nasal mucosa: Negative for SARS-CoV-2, influenza, RSV Patient was discharged to [facility], no records currently available. --- Current status; Daughter presents with patient today, anticipating having him move in with her, lives out of state. Indwelling hancock: being removed/ changed next week. Home health Really weak again, out of breath with activity Hard to stand Forgetfulness. No records [facility] Right jaw gets sore from chewing In w/c since discharge, concerned for falls. Gets himself to [place], can shower Prepared meals Bowels once a week or so. Using Miralax, Sennekot 8.6mg twice a day a needed Pain can get bad but usually 3-4/10, mostly upper back. Latest Ref Rng 12/27/2023 12/28/2023 01/31/2024 WBC 3.70 - 11.00 k/uL 9.13 8.81 RBC 4.20 - 6.00 m/uL 3.55 (L) 3.73 (L) Hemoglobin 13.0 - 17.0 g/dL 10.5 (L) 11.0 (L) Hematocrit 39.0 - 51.0 % 33.5 (L) 33.4 (L) MCV 80.0 - 100.0 fL 94.4 89.5 MCH 26.0 - 34.0 pg 29.6 29.5 MCHC 30.5 - 36.0 g/dL 31.3 32.9 RDW-CV 11.5 - 15.0 % 15.0 16.4 (H) Platelet Count 150 - 400 k/uL 367 273 MPV 9.0 - 12.7 fL 9.8 8.7 (L) Neut% % 67.6 65.5 Abs Neut (ANC) 1.45 - 7.50 k/uL 6.16 5.76 Lymph% % 16.2 19.4 Abs Lymph 1.00 - 4.00 k/uL 1.48 1.71 Milam% % 9.2 9.3 Abs Milam <0.87 k/uL 0.84 0.82 Eosin% % 5.1 4.4 Abs Eosin <0.46 k/uL 0.47 (H) 0.39 Baso% % 1.4 1.1 Abs Baso <0.11 k/uL 0.13 (H) 0.10 Immature Gran % % 0.5 0.3 IMMATURE GRANS (ABS) <0.10 k/uL 0.05 0.03 NRBC /100 WBC 0.0 0.0 Absolute nRBC <0.01 k/uL <0.01 <0.01 DTYPE Auto Auto Protein, Total 6.3 - 8.0 g/dL 7.6 7.3 Albumin 3.9 - 4.9 g/dL 3.8 (L) 3.8 (L) Calcium 8.5 - 10.2 mg/dL 9.6 9.0 9.4 Bilirubin, Total 0.2 - 1.3 mg/dL <0.2 (L) <0.2 (L) Alkaline Phosphatase 38 - 113 U/L 58 71 AST 14 - 40 U/L 10 (L) 7 (L) ALT 10 - 54 U/L 8 (L) 6 (L) Glucose 74 - 99 mg/dL 94 99 111 (H) BUN 9 - 24 mg/dL 34 (H) 28 (H) 26 (H) Creatinine 0.73 - 1.22 mg/dL 1.88 (H) 1.82 (H) 1.33 (H) Sodium 136 - 144 mmol/L 140 135 (L) 135 (L) Potassium 3.7 - 5.1 mmol/L 5.1 4.7 4.3 Chloride 97 - 105 mmol/L 111 (H) 103 103 CO2 22 - 30 mmol/L 22 22 24 Anion Gap 9 - 18 mmol/L 7 10 8 (L) eGFR >=60 mL/min/1.73m 37 (L) 38 (L) 56 (L) HISTORIES FAMILY HISTORY Problem Relation Age of Onset Cancer Mother breast cancer Hypertension Mother None Father father in train accident at yuni age Hypertension Sister PAST MEDICAL HISTORY Diagnosis Date Acute pharyngitis, unspecified Acute posthemorrhagic anemia Arthritis 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 Bilateral primary osteoarthritis of hip BPH without obstruction/lower urinary tract symptoms Chronic hepatitis C without hepatic coma (HCC) 01/05/2019 10/10/2021 Hep C not detectable 06/16/[address] Augustine. Completed treatment. 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 Dysphagia, oral phase Hip arthritis History of transfusion HTN (hypertension) Well controlled on medication--Managed by PCP Hydronephrosis, unspecified hydronephrosis type Insomnia, unspecified Leukocytosis 11/22/1986 [place] admission - thought leukemia and he refused tests Overflow incontinence of urine S/P hip replacement PAST SURGICAL HISTORY Procedure Laterality Date ARTHRP ACETBLR/PROX FEM PROSTC AGRFT/ALGRFT Right 07/25/2014 Hip replacement, total, right BACK SURGERY HX Lumbar spine surgery COLONOSCOPY 07/16/2003 random biopsies negative COLONOSCOPY FLX DX W/COLLJ SPEC WHEN PFRMD 06/27/2013 Colonoscopy JOINT REPLACEMENT HX Right Total shoulder-- PAST SURGICAL HISTORY OF 1997 shoulder surgery bilateral PAST SURGICAL HISTORY OF 1997 tendon repair bilat elbows. SKIN BIOPSY HX Social History Tobacco Use Smoking status: Former Packs/day: 2.00 Years: 23.00 Additional pack years: 0.00 Total pack years: 46.00 Types: Cigarettes Quit date: 11/22/1992 Years since quittin.2 Passive exposure: Never Smokeless tobacco: Never Vaping Use Vaping Use: Never used Substance Use Topics Alcohol use: Not Currently Comment: quit in 1991. Drug use: Not Currently Comment: Quit drugs in ~. 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 90 tablet 0 ferrous sulfate EC 324 mg (65 mg iron) TbEC Take 1 tablet by mouth two times a day with meals. 180 tablet 1 gabapentin (NEURONTIN) 300 mg capsule Take 2 capsules by mouth three times a day for 90 days. 540 capsule 0 Catheter (BARD COUDE TIP CATHETER) 16 Fr misc ISC 2-3 x per day for urinary retention 100 Each 1 tamsulosin (FLOMAX) 0.4 mg Take 1 capsule by mouth daily at bedtime. 90 capsule 0 Melatonin 5 mg cap Take 1 capsule by mouth daily at bedtime. (Patient taking differently: Take 5 mg by mouth daily at bedtime. Chewable) 90 capsule 3 lisinopril (ZESTRIL) 20 mg tablet Take 1 tablet by mouth once daily. (Patient taking differently: Take 20 mg by mouth every morning.) 90 tablet 3 amLODIPine (NORVASC) 10 mg tablet Take 1 tablet by mouth once daily. (Patient taking differently: Take 10 mg by mouth every morning.) 90 tablet 3 traZODone (DESYREL) 50 mg tablet Take 1 tablet by mouth daily at bedtime. 90 tablet 3 buPROPion XL (WELLBUTRIN XL) 300 mg 24 hr tablet Take 1 tablet by mouth once daily. (Patient taking differently: Take 300 mg by mouth every evening.) 90 tablet 3 polyethylene glycol 3350 17 gram packet Take 17 g by mouth once daily. Dissolve dose in 4 - 8 ounces of liquid and take as directed. menthol/camphor (BIOFREEZE TOPICAL) Apply to affected area three times daily. Apply to posterior hand and right scapula for pain and order to apply every four hours as needed for pain not to exceed more than four total applications per day. senna (SENOKOT) 8.6 mg tab Take 1 tablet by mouth twice daily as needed for constipation. acetaminophen (TYLENOL) 325 mg tablet Take 2 tablets by mouth every 6 hours as needed (mild pain or fever >100). (Patient taking differently: Take 650 mg by mouth every 6 hours as needed (mild pain or fever >100). 500 MG- two by mouth every eight hours as needed) testosterone (ANDROGEL) 50 mg / 5 g (1%) Apply 1 Packet as directed once daily for 90 days. (Patient not taking: Reported on 01/03/2024) 150 g 2 No current facility-administered medications for this visit. Hepatitis A Vaccine(1 of 2 - Risk 2-dose series) Never done RSV Vaccine(1 - 1-dose 60+ series) Never done Advance Directive Discussion due on 11/22/2023 Depression Assessment due on 11/22/2023 Colorectal Cancer Screening due on 01/04/2024 EXAM: BP 100/70 Pulse 82 Resp 16 Wt 94.8 kg (209 lb) SpO2 98% BMI 29.15 kg/m Pleasant adult man in no acute distress. Alert and oriented all spheres. Patient presents with cheerful mood, normal affect and cognition. Speech normal. No deficits to learning or comprehension. Skin warm, dry, pink to lips and nailbeds. Normal turgor. Respirations regular and unlabored. HEENT: NCAT, PERRLA, no conjunctival injection or scleral icterus. Nose and oropharynx are free from injection or lesion, oral membranes are mildly dry, teeth are in good repair. No cervical lymphadenopathy. Neck is supple. Thyroid exam is nontender, no masses. No clavicular lymph nodes. Chest is normal in shape and size Lungs are clear to auscultation percussion. Cardiac exam regular rate and rhythm no murmurs or gallops. Abdomen soft nontender, active bowel sounds. Extrem: no clubbing or cyanosis. Edema: none. Extremities are warm and pink with prompt capillary refill. Patient is weak, is able to stand with 1 assistance and take steps. ASSESSMENT/PLAN: 1. Hospital discharge follow-up - ICD9: V67.59, ICD10: Z09 (primary diagnosis) Problems updated, medication reconciliation completed, follow-ups completed. 2. Acute urinary tract infection - ICD9: 599.0, ICD10: N39.0 Resolved Patient continues to self cath, still has some concerns about whether he is doing the correct technique. He is getting what he considers to be a normal amount of urine which remains per his report clear yellow. 3. Acute renal failure superimposed on stage 3a chronic kidney disease, unspecified acute renal failure type (HCC) - ICD9: 584.9, 585.3, ICD10: N17.9, N18.31 - eGFR: 56 Stable - Counseled on avoiding NSAIDs, adequate hydration 4. Frailty - ICD9: 797, ICD10: R54 - [facility] 5. At high risk for falls - ICD9: V15.88, ICD10: Z91.81 - [facility] 6. Paresthesia of saddle area: Cauda equina ruled out - ICD9: 782.0, ICD10: R20.2 - [facility] 7. DDD (degenerative disc disease), lumbar - ICD9: 722.52, ICD10: M51.36 Chronic low back pain - [facility] 8. Intractable low back pain - ICD9: 724.2, ICD10: M54.59 - [facility] 9. Chronic vertigo - ICD9: 780.4, ICD10: R42 - [facility] 10. S/P laminectomy - ICD9: V45.89, ICD10: Z98.890 - [facility] 11. MGUS (monoclonal gammopathy of unknown significance) - ICD9: 273.1, ICD10: D47.2 - [facility] 12. Hypogonadism in male - ICD9: 257.2, ICD10: E29.1 States rx was declined- possibly r/t age. Androgen therapy would help strength recovery and balance - TESTOSTERONE 1 % (50 MG/5 GRAM) TRANSDERMAL GEL PACKET F/u 3 months Some of this note may have been copied and pasted for the purpose of history context and comparison and has been adjusted for changes in prior data. Marbella Zaidi PA-C documented in this encounter [facility] 02-03-2024 Telephone encounter Note Phone call placed to patient, emergency contact Jocelin Jiménez and patient's son Singh listed on chart ok to share information. Reviewed with patient's son reported currently seeing Neurologist in [place] , unable to recall name of provider, after treatment of ongoing bladder issues will be having Neurosurgery, requested appointment to be cancelled. Lakeisha Palmer LPN [facility] 02-03-2024 Miscellaneous Notes Phone call placed to patient, emergency contact Jocelin Jiménez and patient's son Singh listed on chart ok to share information. Reviewed with patient's son reported currently seeing Neurologist in [place] , unable to recall name of provider, after treatment of ongoing bladder issues will be having Neurosurgery, requested appointment to be cancelled. Lakeisha Palmer LPN documented in this encounter [facility] 01-31-2024 Instructions Bharathi Wiggins APRN.MYRA, RENE - 01/31/2024 3:04 PM EDT Schedule Cysto/TRUS ONLY for [place] with our Urology surgeon team. Continue your Flomax. Change hancock today. follow up with me after Cysto /TRUS procedure. A Cystoscopy is a procedure that allows your doctor to examine the lining of your bladder and the tube that carries urine out of your body (urethra). A hollow tube (cystoscope) equipped with a lens is inserted into your urethra and slowly advanced into your bladder. This is a very quick outpatient procedure completed at one of our Urology offices. Transrectal ultrasound (TRUS) is a 5- to 15-minute outpatient procedure that uses sound waves to create a video image of the prostate gland. A small, lubricated probe placed into the rectum releases sound waves, which create echoes as they enter the prostate. Lower urinary tract symptoms suggestive of benign prostatic enlargement. I discussed treatment options at length including r/b/a of each: To include Medication therapy and the role of further evaluation with TRUS and cysto. Return to the clinic or seek care at [facility]gent [facility] for any worsening signs or symptoms: such as fevers, chills, worsening pain, gross blood in urine or worsening urinary symptoms. For severe symptoms seek care at the closest ER. Plan of care, medicaiton side effects and management reviewed with patient. Healthy Habits: Recommend regular physical activity, nutrition and healthy eating habits. Consume a variety of foods every day focusing on fruits, vegetables and lean meats). Eat foods low in fat, saturated fat and cholesterol. Eat a limited amount of salt and sodium. Drink adequate amounts of water and limit sugary drinks. Exercise portion control in meal selection. Establish a mindset of a wellness approach to health. Thank you for allowing me to provide your care today. I look forward to seeing you again and maintaining your health. Bharathi Wiggins APRN.MYRA, RENE documented in this encounter [facility] 01-31-2024 History of Present illness Narrative [facility] MALE PATIENT - HISTORY AND PHYSICAL EXAMINATION PATIENT: Miroslava Peralta (73 year old) PCP: BEVERLY Robbins patient of Urology CHIEF COMPLAINT: BPH/LUTS follow up HISTORY OF PRESENT ILLNESS: 73 year old year old male with BPH/LUTS/High PVRs. Singh friend of patient present today. Was previously in [facility]. Now lives in his own apartment. Hx of AUR. Last seen by Dany GOEL in April 2023. Seen by PCP for preop. Noted to have AUR and Hydronephrosis. Takes opioids - chronically. Pending Neck and back surgery. 11 days ago slipped out of his wheel chair and unable to get back up. Was too weak and frail. Went to [facility] ER and was admitted for 2 days. Then was transferred to [facility] for outpatient rehab. When that occurred had hancock catheter placed and it has been in place since. Denies recent /f/c/ BPH: Takes Flomax. Has been out of Flomax for months. Hx of high PVRs. Wears 3-5 pads per day. Incontinent for 6-12 months. Restarted on Flomax. ISC started at last appointment d/y high PVRs. 16F Coude straight tip catheter 2-3 x per day: Rx sent to [facility]. Denies f/c/n/v. Denies suprapubic pain or flank pain. No family hx of prostate cancer. Patient Entered Questionnaires: INTERNATIONAL PROSTATE SYMPTOM SCORE (I-PSS) 1)INCOMPLETE EMPTYING Over the past month, how often have you had a sensation of not emptying your bladder completely after you finished urinating? SCORE: 5- Almost always 2)FREQUENCY Over the past month, how often have you had to urinate again less than two hours after you finished urinating? SCORE: 5- Almost always 3)INTERMITTENCY Over the past month, how often have you found you stopped and started again several times when you urinated? SCORE: 5- Almost always 4)URGENCY Over the past month, how often have you found it difficult to postpone urination? SCORE: 5- Almost always 5)WEAK STREAM Over the past month, how often have you had a weak stream? SCORE: 5- Almost always 6)STRAINING Over the past month, how often have you had to push or strain to begin urination SCORE: 5- Almost always 7)NOCTURIA Over the past month, how many times did you most typically get up to urinate from the time you went to bed at night until the time you get up in the morning? SCORE:5 TOTAL I-PSS SCORE: 35 QUALITY OF LIFE DUE TO URINARY SYMPTOMS If you were to spend the rest of yur life with your urinary condition just the way it is now, how would you feel about that? 4- Mostly dissatisfied PROMIS Global Health PROMIS Global Health Scale 12/29/2021 Physical Health Percentile 7% Mental Health Percentile 5% Percentiles provide an indication of how the patient's score ranks in relation to the general population. Higher percentile rankings indicate better function/quality of life. 50th percentile is the average of the general population and indicates half of respondents had a worse score. HISTORY: PAST MEDICAL HISTORY Diagnosis Date Acute pharyngitis, unspecified Acute posthemorrhagic anemia Arthritis 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 Bilateral primary osteoarthritis of hip BPH without obstruction/lower urinary tract symptoms Chronic hepatitis C without hepatic coma (HCC) 01/05/2019 10/10/2021 Hep C not detectable 06/16/[address] Augustine. Completed treatment. 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 Dysphagia, oral phase Hip arthritis History of transfusion HTN (hypertension) Well controlled on medication--Managed by PCP Hydronephrosis, unspecified hydronephrosis type Insomnia, unspecified Leukocytosis 11/22/1986 [place] admission - thought leukemia and he refused tests Overflow incontinence of urine S/P hip replacement PAST SURGICAL HISTORY Procedure Laterality Date ARTHRP ACETBLR/PROX FEM PROSTC AGRFT/ALGRFT Right 07/25/2014 Hip replacement, total, right BACK SURGERY HX Lumbar spine surgery COLONOSCOPY 07/16/2003 random biopsies negative COLONOSCOPY FLX DX W/COLLJ SPEC WHEN PFRMD 06/27/2013 Colonoscopy JOINT REPLACEMENT HX Right Total shoulder-- PAST SURGICAL HISTORY OF 1997 shoulder surgery bilateral PAST SURGICAL HISTORY OF 1997 tendon repair bilat elbows. SKIN BIOPSY HX Social History Tobacco Use Smoking status: Former Packs/day: 2.00 Years: 23.00 Additional pack years: 0.00 Total pack years: 46.00 Types: Cigarettes Quit date: 11/22/1992 Years since quittin.2 Passive exposure: Never Smokeless tobacco: Never Vaping Use Vaping Use: Never used Substance Use Topics Alcohol use: Not Currently Comment: quit in 1991. Drug use: Not Currently Comment: Quit drugs in . FAMILY HISTORY Problem Relation Age of Onset Cancer Mother breast cancer Hypertension Mother None Father father in train accident at yuni age Hypertension Sister MEDICATIONS: Current Outpatient Medications Medication Sig meclizine (ANTIVERT) 12.5 mg tab Take 1 tablet by mouth three times a day. ferrous sulfate EC 324 mg (65 mg iron) TbEC Take 1 tablet by mouth two times a day with meals. gabapentin (NEURONTIN) 300 mg capsule Take 2 capsules by mouth three times a day for 90 days. tamsulosin (FLOMAX) 0.4 mg Take 1 capsule by mouth daily at bedtime. Melatonin 5 mg cap Take 1 capsule by mouth daily at bedtime. (Patient taking differently: Take 5 mg by mouth daily at bedtime. Chewable) lisinopril (ZESTRIL) 20 mg tablet Take 1 tablet by mouth once daily. (Patient taking differently: Take 20 mg by mouth every morning.) amLODIPine (NORVASC) 10 mg tablet Take 1 tablet by mouth once daily. (Patient taking differently: Take 10 mg by mouth every morning.) traZODone (DESYREL) 50 mg tablet Take 1 tablet by mouth daily at bedtime. buPROPion XL (WELLBUTRIN XL) 300 mg 24 hr tablet Take 1 tablet by mouth once daily. (Patient taking differently: Take 300 mg by mouth every evening.) polyethylene glycol 3350 17 gram packet Take 17 g by mouth once daily. Dissolve dose in 4 - 8 ounces of liquid and take as directed. menthol/camphor (BIOFREEZE TOPICAL) Apply to affected area three times daily. Apply to posterior hand and right scapula for pain and order to apply every four hours as needed for pain not to exceed more than four total applications per day. senna (SENOKOT) 8.6 mg tab Take 1 tablet by mouth twice daily as needed for constipation. acetaminophen (TYLENOL) 325 mg tablet Take 2 tablets by mouth every 6 hours as needed (mild pain or fever >100). (Patient taking differently: Take 650 mg by mouth every 6 hours as needed (mild pain or fever >100). 500 MG- two by mouth every eight hours as needed) Catheter (BARD COUDE TIP CATHETER) 16 Fr misc ISC 2-3 x per day for urinary retention testosterone (ANDROGEL) 50 mg / 5 g (1%) Apply 1 Packet as directed once daily for 90 days. (Patient not taking: Reported on 01/03/2024) No current facility-administered medications for this visit. LABS: Component Latest Ref Rng & Units 01/03/2024 GLUCOSE UA (POCT) Negative mg/dL Negative BILIRUBIN UA (POCT) Negative Negative KETONE UA (POCT) Negative mg/dL Negative SPECIFIC GRAVITY UA (POCT) 1.005 - 1.030 1.015 HEMOGLOBIN/BLOOD UA (POCT) Negative Negative PH UA (POCT) 4.5 - 8.0 5.5 PROTEIN UA (POCT) Negative mg/dL Negative UROBILINOGEN UA (POCT) Normal E.U./dL 0.2 NITRITE UA (POCT) Negative Negative LEUKOCYTES UA (POCT) Negative Small (A) COLOR UA (POCT) Light yellow CLARITY UA (POCT) Slightly Cloudy Component Latest Ref Rng & Units 12/28/2023 Protein, Total 6.3 - 8.0 g/dL 7.6 Albumin 3.9 - 4.9 g/dL 3.8 (L) Calcium 8.5 - 10.2 mg/dL 9.0 Bilirubin, Total 0.2 - 1.3 mg/dL <0.2 (L) Alkaline Phosphatase 38 - 113 U/L 58 AST 14 - 40 U/L 10 (L) ALT 10 - 54 U/L 8 (L) Glucose 74 - 99 mg/dL 99 BUN 9 - 24 mg/dL 28 (H) Creatinine 0.73 - 1.22 mg/dL 1.82 (H) Sodium 136 - 144 mmol/L 135 (L) Potassium 3.7 - 5.1 mmol/L 4.7 Chloride 97 - 105 mmol/L 103 CO2 22 - 30 mmol/L 22 Anion Gap 9 - 18 mmol/L 10 eGFR >=60 mL/min/1.73m 38 (L) GLUCOSE UA (POCT) Negative 08/03/2023 BILIRUBIN UA (POCT) Negative 08/03/2023 KETONE UA (POCT) Negative 08/03/2023 SPECIFIC GRAVITY UA (POCT) 1.020 08/03/2023 HEMOGLOBIN/BLOOD UA (POCT) Large 08/03/2023 PH UA (POCT) 6.0 08/03/2023 PROTEIN UA (POCT) Negative 08/03/2023 UROBILINOGEN UA (POCT) 0.2 08/03/2023 NITRITE UA (POCT) Negative 08/03/2023 LEUKOCYTES UA (POCT) Moderate 08/03/2023 COLOR UA (POCT) Dark yellow 08/03/2023 CLARITY UA (POCT) Value: Slightly Cloudy 08/03/2023 Creatinine Creatinine Date Value Ref Range Status 01/31/2024 1.33 (H) 0.73 - 1.22 mg/dL Final 12/28/2023 1.82 (H) 0.73 - 1.22 mg/dL Final 12/27/2023 1.88 (H) 0.50 - 1.40 mg/dL Final Comment: Patients receiving either N-Acetylcysteine (NAC) or Metamizole prior to venipuncture, may have falsely depressed results. 06/28/2023 0.83 0.73 - 1.22 mg/dL Final PSA PSA Screening (ng/mL) Date Value 10/03/2013 2.04 08/03/2012 1.83 IMAGING: CT 2022: 07/08/2023 8:08 AM - Radiology, [place] In Impression IMPRESSION: Moderate right hydroureteronephrosis with no visible obstructing calculus identified. Small stable indeterminate left adrenal nodule. Pelvis: No mass or ascites. Suggestion of mild prostatic enlargement. Bones and Soft Tissues: No acute abnormality. Streak artifact from right hip replacement Lower thorax: Unremarkable. Supervisor Reclamation (topogram) images: Unremarkable. Review of Systems: PAIN ASSESSMENT: Chronic back pain GENERAL: No weight loss, malaise or fevers GI: No nausea, vomiting MUSCULOSKELETAL: generalized joint pain SKIN: Negative for rash HEMATOLOGY/LYMPHOLOGY: Negative for swollen nodes All other systems reviewed and noncontributory PHYSICAL EXAMINATION: VITALS: BP 100/70 (BP Site: Right Arm, BP Position: Sitting, BP Cuff Size: Regular Adult) Pulse 94 Temp 36.3 C (97.3 F) (Temporal) Resp 14 Ht 180.3 cm (5' 11 ) Wt 92.7 kg (204 lb 6.4 oz) SpO2 99% BMI 28.51 kg/m GENERAL: alert, no distress, normal affect, chronically ill appearing. RESPIRATORY: normal effort ABDOMEN: soft, non-tender GENITAL: - SCROTUM: no rashes, no edema RECTAL: approximately 65 g prostate, no nodules PELVIC FLOOR: no tenderness EXTREMITIES: generalized weakness. Uses wheel chair. SKIN: normal NEUROLOGIC: normal ASSESSMENT/PLAN: 1. 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 - ICD9: 600.01, 788.21, ICD10: N40.1, R39.14 (primary diagnosis) MDM: 73y/o male who has worsening decline of health and chronic pain. Diff mobility d/t chronic back DDD. Chronic high PVR and enlarge prostate. Hancock inserted 2 weeks ago. If Cysto is complete in the next 3-4 weeks can change then, if not come back for nurse visit for Hancock change. The patient has lower urinary tract symptoms suggestive of benign prostatic hyperplasia with UR. PARKER Normal/No FHX of prostate cancer. I discussed treatment options at length including r/b/a of each. I also discussed the role of further evaluation with UDS, TRUS and cysto if indicated. Discussed the role of pharmacotherapy, including risks, benefits and alternatives: Alpha-eric therapy [e.g. Tamsulosin] - potential risks of dizziness, asthenia, orthostasis, and retrograde ejaculation. Plan: Cont with Hancock for now. Cont Flomax - consider increasing to 2 caps. Cysto/TRUS with our Urology team. SW consult follow up after Cysto. - HANCOCK CHANGE - CYSTO/TRUS ONLY 2. Overflow incontinence of urine - ICD9: 788.38, ICD10: N39.490 Plan as above Cysto/TRUS with our Urology team. - HANCOCK CHANGE - CYSTO/TRUS ONLY 3. Urinary retention - ICD9: 788.20, ICD10: R33.9 Plan as above - HANCOCK CHANGE - CYSTO/TRUS ONLY 4. Hydronephrosis, unspecified hydronephrosis type - ICD9: 591, ICD10: N13.30 Recheck CMP Consider follow up RBUS. 5. Stage 3b chronic kidney disease (HCC) - ICD9: 585.3, ICD10: N18.32 - eGFR: 56 Stable - Counseled on avoiding NSAIDs, adequate hydration - Counseled on low sodium diet 6. Frailty - ICD9: 797, ICD10: R54 In wheel chair. Difficulty with ADLs. Consult to SW. - PRIMARY CARE SOCIAL WORK CONSULT 7. At high risk for falls - ICD9: V15.88, ICD10: Z91.81 In wheel chair. Difficulty with ADLs. Consult to SW. - PRIMARY CARE SOCIAL WORK CONSULT I spent a total of 40 minutes on the date of the service which included preparing to see the patient, [id number] patient care, completing clinical documentation, performing a medically appropriate examination, counseling and educating the patient/family/caregiver and ordering medications, tests, or procedures. This note was copied from previous note and exam dated 01/03/24. Author is Bharathi Wiggins APRN.RENE RENTERIA note reviewed and changes have been made or updates noted in the copy & paste portion of an encounter. Bharathi Wiggins DNP, MYRA Department of Urology [facility] documented in this encounter [facility] 01-31-2024 Note [facility] 01-12-2024 Miscellaneous Notes Noted. Have patient follow up with me - Urology after he is discharged from rehab. Bharathi Wiggins DNP, MYRA Department of Urology [facility] Called Singh. Verified name and date of of patient. Informed- Singh states he will make appointment once plan is established. Pamela Rashid LPN Called Singh. Verified name and date of of patient. Singh patients that patient was ISC three times daily, states that went well but patient weakness was getting worse and was falling often. Singh called and patient has been at [facility] since Wednesday. Patient will go to Rehab facility for 20 days. Singh thinks plan is for patient to have hancock cathter for 4-6 weeks but is not certain. Initially plan was for patient to go home last Wednesday but those plans did change. Pamela Rashid LPN Pts daughter called. Address confirmed and phone number for pt is correct but he often has issues with it. States the contacts Singh and Jocelin Dupree help pt here since she is in [place]. Confirmed their numbers are correct in notes as well. Called patients, daughter Ailin. Ailin unable to give two identifiers but will call back. Pamela Rashid LPN Images from the original note were not included. Bharathi Wiggins APRN.MYRA, RENE [facility] Urology Pool 15 hours ago (4:55 PM) Team - Please call patient and get an update. He was supposed to see me today at [place]. Appears he is admitted at [facility] or at the ER. See what details you can find out. Bharathi Wiggins DNP, MYRA Department of Urology [facility] Number no longer in service. Pamela Rashid LPN Nurse from [facility] called wondering if the patient is under care of a [facility] Urologist. Confirmed patient is seen by Bharathi Wiggins. Patient has been admitted (01/09/2024) for a UTI. documented in this encounter [facility] 01-05-2024 Miscellaneous Notes Spoke with Singh and given provider's message below with verbalized understanding. Can please let patient know that I received his test results. The stool sample was negative for any hidden blood. I can see that he did have follow-up with urology and started intermittent cathing. Lets have him repeat labs next week and see if this helped improve his kidney function. Abena Beckford APRN.DIRECTOR OF TESTING documented in this encounter [facility] 01-04-2024 Telephone encounter Note Please communicate my apology for being so late yesterday and the inconvenience it caused. Please reschedule as patient able. I refilled highlighted prescriptions. Thanks, Duong Zaidi PA-C [facility] 01-04-2024 Miscellaneous Notes Please communicate my apology for being so late yesterday and the inconvenience it caused. Please reschedule as patient able. I refilled highlighted prescriptions. Duong Tineo PA-C documented in this encounter [facility] 01-04-2024 Nurse Note Patient presents for a PVR to see how he is doing. Patient taken to restroom and voided. Patient then had bladder scan done which revealed 445 ml. Patient then straight cathed himself and got 700 ml residual. Patient given samples and was able to use a coloplast speedy cath soft 16 lebanese straight catheter. Patient then instructed to catheterize himself three times a day and a follow up appointment with Bharathi Wiggins made. Patient instructed to contact office if any issues with voiding or catheterizing arise. Post void bladder scan completed. Patient had 445 ml residual urine. Results reported to Bharathi Wiggins. documented in this encounter [facility] 01-03-2024 Instructions Bharathi Wiggins APRN.RENE RENTERIA - 01/03/2024 4:24 PM EST Intermittent self cath this evening before bed. Go to our [facility] outpatient building: Address: [address] [place] [address] 6th Floor is Urology. Our RN team will perform a PVR on you to check your bladder. Follow up with Bharathi Wiggins APRN.RENE RENTERIA in 4 weeks Start a trial of Flomax Lower urinary tract symptoms suggestive of benign prostatic enlargement. I discussed treatment options at length including r/b/a of each: To include Medication therapy and the role of further evaluation with UDS, TRUS and cysto if indicated. Discussed the role of pharmacotherapy, including risks, benefits and alternatives: Alpha-eric therapy [e.g. Tamsulosin] - potential risks of dizziness, asthenia, orthostasis, and retrograde ejaculation. Return to the clinic or seek care at [facility] for any worsening signs or symptoms: such as fevers, chills, worsening pain, gross blood in urine or worsening urinary symptoms. For severe symptoms seek care at the closest ER. Plan of care, medicaiton side effects and management reviewed with patient. Healthy Habits: Recommend regular physical activity, nutrition and healthy eating habits. Consume a variety of foods every day focusing on fruits, vegetables and lean meats). Eat foods low in fat, saturated fat and cholesterol. Eat a limited amount of salt and sodium. Drink adequate amounts of water and limit sugary drinks. Exercise portion control in meal selection. Establish a mindset of a wellness approach to health. Thank you for allowing me to provide your care today. I look forward to seeing you again and maintaining your health. Bharathi Wiggins APRN.RENE RENTERIA documented in this encounter [facility] 01-03-2024 Note [facility] 01-03-2024 History of Present illness Narrative Verified name and date of . CC Post Void Residual HPI: Jadiel katinacalvin is here now for an appointment with Rosalie Pabon APRN, DNP Procedure: Explained procedure to patient and verbalizes understanding. Performed a PVR. Patient urinated and instructed to empty bladder as much as possible just prior to having PVR done using bladder ultrasound scanner. Results of scan: 787 mL The patient tolerated the procedure well. Plan: Appointment with Bharathi. [facility] MALE PATIENT - HISTORY AND PHYSICAL EXAMINATION PATIENT: Miroslava Peralta (73 year old) 01/03/2024 PCP: Marbella Zaidi PA-C Est patient of Urology CHIEF COMPLAINT: BPH/LUTS HISTORY OF PRESENT ILLNESS: 73 year old year old male with BPH/LUTS/High PVRs. Was previously in [facility]. Now lives in his own apartment. Hx of AUR. Last seen by Dany GOEL in April 2023. Last PVR = 343 ml Seen by PCP for preop. Noted to have AUR and Hydronephrosis. Takes opioids - chronically. Pending Neck and back surgery. BPH: Takes Flomax. Has been out of Flomax for months. Hx of high PVRs. Wears 3-5 pads per day. Incontinent for 6-12 months. Denies f/c/n/v. Denies suprapubic pain or flank pain. No family hx of prostate cancer. Patient Entered Questionnaires: INTERNATIONAL PROSTATE SYMPTOM SCORE (I-PSS) 1)INCOMPLETE EMPTYING Over the past month, how often have you had a sensation of not emptying your bladder completely after you finished urinating? SCORE: 5- Almost always 2)FREQUENCY Over the past month, how often have you had to urinate again less than two hours after you finished urinating? SCORE: 5- Almost always 3)INTERMITTENCY Over the past month, how often have you found you stopped and started again several times when you urinated? SCORE: 5- Almost always 4)URGENCY Over the past month, how often have you found it difficult to postpone urination? SCORE: 5- Almost always 5)WEAK STREAM Over the past month, how often have you had a weak stream? SCORE: 5- Almost always 6)STRAINING Over the past month, how often have you had to push or strain to begin urination SCORE: 5- Almost always 7)NOCTURIA Over the past month, how many times did you most typically get up to urinate from the time you went to bed at night until the time you get up in the morning? SCORE:5 TOTAL I-PSS SCORE: 35 QUALITY OF LIFE DUE TO URINARY SYMPTOMS If you were to spend the rest of yur life with your urinary condition just the way it is now, how would you feel about that? 4- Mostly dissatisfied PROMIS Global Health PROMIS Global Health Scale 12/29/2021 Physical Health Percentile 7% Mental Health Percentile 5% Percentiles provide an indication of how the patient's score ranks in relation to the general population. Higher percentile rankings indicate better function/quality of life. 50th percentile is the average of the general population and indicates half of respondents had a worse score. HISTORY: PAST MEDICAL HISTORY Diagnosis Date Acute pharyngitis, unspecified Acute posthemorrhagic anemia Arthritis 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 Bilateral primary osteoarthritis of hip BPH without obstruction/lower urinary tract symptoms Chronic hepatitis C without hepatic coma (HCC) 01/05/2019 10/10/2021 Hep C not detectable 06/16/[address] Augustine. Completed treatment. 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 Dysphagia, oral phase Hip arthritis History of transfusion HTN (hypertension) Well controlled on medication--Managed by PCP Insomnia, unspecified Leukocytosis 11/22/1986 [place] admission - thought leukemia and he refused tests Overflow incontinence of urine S/P hip replacement PAST SURGICAL HISTORY Procedure Laterality Date ARTHRP ACETBLR/PROX FEM PROSTC AGRFT/ALGRFT Right 07/25/2014 Hip replacement, total, right BACK SURGERY HX Lumbar spine surgery COLONOSCOPY 07/16/2003 random biopsies negative COLONOSCOPY FLX DX W/COLLJ SPEC WHEN PFRMD 06/27/2013 Colonoscopy JOINT REPLACEMENT HX Right Total shoulder-- PAST SURGICAL HISTORY OF 1997 shoulder surgery bilateral PAST SURGICAL HISTORY OF 1997 tendon repair bilat elbows. SKIN BIOPSY HX Social History Tobacco Use Smoking status: Former Packs/day: 2.00 Years: 23.00 Additional pack years: 0.00 Total pack years: 46.00 Types: Cigarettes Quit date: 11/22/1992 Years since quittin.1 Passive exposure: Never Smokeless tobacco: Never Vaping Use Vaping Use: Never used Substance Use Topics Alcohol use: Not Currently Comment: quit in 1991. Drug use: Not Currently Comment: Quit drugs in . FAMILY HISTORY Problem Relation Age of Onset Cancer Mother breast cancer Hypertension Mother None Father father in train accident at yuni age Hypertension Sister MEDICATIONS: Current Outpatient Medications Medication Sig nitrofurantoin monohydrate and macrocrystal (MACROBID) 100 mg capsule Take 1 capsule by mouth two times a day with meals for 7 days. meclizine (ANTIVERT) 12.5 mg tab Take 1 tablet by mouth three times a day. Melatonin 5 mg cap Take 1 capsule by mouth daily at bedtime. (Patient taking differently: Take 5 mg by mouth daily at bedtime. Last dose 12/26/23) ferrous sulfate EC 324 mg (65 mg iron) TbEC Take 1 tablet by mouth two times a day with meals. gabapentin (NEURONTIN) 300 mg capsule Take 2 capsules by mouth three times a day for 90 days. lisinopril (ZESTRIL) 20 mg tablet Take 1 tablet by mouth once daily. (Patient taking differently: Take 20 mg by mouth every morning.) amLODIPine (NORVASC) 10 mg tablet Take 1 tablet by mouth once daily. (Patient taking differently: Take 10 mg by mouth every morning.) traZODone (DESYREL) 50 mg tablet Take 1 tablet by mouth daily at bedtime. buPROPion XL (WELLBUTRIN XL) 300 mg 24 hr tablet Take 1 tablet by mouth once daily. (Patient taking differently: Take 300 mg by mouth every evening.) menthol/camphor (BIOFREEZE TOPICAL) Apply to affected area three times daily. Apply to posterior hand and right scapula for pain and order to apply every four hours as needed for pain not to exceed more than four total applications per day. senna (SENOKOT) 8.6 mg tab Take 1 tablet by mouth twice daily as needed for constipation. acetaminophen (TYLENOL) 325 mg tablet Take 2 tablets by mouth every 6 hours as needed (mild pain or fever >100). (Patient taking differently: Take 650 mg by mouth every 6 hours as needed (mild pain or fever >100). 500 MG- two by mouth every eight hours as needed) tamsulosin (FLOMAX) 0.4 mg Take 1 capsule by mouth daily at bedtime. testosterone (ANDROGEL) 50 mg / 5 g (1%) Apply 1 Packet as directed once daily for 90 days. (Patient not taking: Reported on 01/03/2024) naproxen (NAPROSYN) 500 mg tablet Take 500 mg by mouth two times a day with meals. Last dose 12/27/23-- No hold orders from (Patient not taking: Reported on 01/03/2024) polyethylene glycol 3350 17 gram packet Take 17 g by mouth once daily. Dissolve dose in 4 - 8 ounces of liquid and take as directed. (Patient not taking: Reported on 01/03/2024) No current facility-administered medications for this visit. LABS: Component Latest Ref Rng & Units 01/03/2024 GLUCOSE UA (POCT) Negative mg/dL Negative BILIRUBIN UA (POCT) Negative Negative KETONE UA (POCT) Negative mg/dL Negative SPECIFIC GRAVITY UA (POCT) 1.005 - 1.030 1.015 HEMOGLOBIN/BLOOD UA (POCT) Negative Negative PH UA (POCT) 4.5 - 8.0 5.5 PROTEIN UA (POCT) Negative mg/dL Negative UROBILINOGEN UA (POCT) Normal E.U./dL 0.2 NITRITE UA (POCT) Negative Negative LEUKOCYTES UA (POCT) Negative Small (A) COLOR UA (POCT) Light yellow CLARITY UA (POCT) Slightly Cloudy Component Latest Ref Rng & Units 12/28/2023 Protein, Total 6.3 - 8.0 g/dL 7.6 Albumin 3.9 - 4.9 g/dL 3.8 (L) Calcium 8.5 - 10.2 mg/dL 9.0 Bilirubin, Total 0.2 - 1.3 mg/dL <0.2 (L) Alkaline Phosphatase 38 - 113 U/L 58 AST 14 - 40 U/L 10 (L) ALT 10 - 54 U/L 8 (L) Glucose 74 - 99 mg/dL 99 BUN 9 - 24 mg/dL 28 (H) Creatinine 0.73 - 1.22 mg/dL 1.82 (H) Sodium 136 - 144 mmol/L 135 (L) Potassium 3.7 - 5.1 mmol/L 4.7 Chloride 97 - 105 mmol/L 103 CO2 22 - 30 mmol/L 22 Anion Gap 9 - 18 mmol/L 10 eGFR >=60 mL/min/1.73m 38 (L) GLUCOSE UA (POCT) Negative 08/03/2023 BILIRUBIN UA (POCT) Negative 08/03/2023 KETONE UA (POCT) Negative 08/03/2023 SPECIFIC GRAVITY UA (POCT) 1.020 08/03/2023 HEMOGLOBIN/BLOOD UA (POCT) Large 08/03/2023 PH UA (POCT) 6.0 08/03/2023 PROTEIN UA (POCT) Negative 08/03/2023 UROBILINOGEN UA (POCT) 0.2 08/03/2023 NITRITE UA (POCT) Negative 08/03/2023 LEUKOCYTES UA (POCT) Moderate 08/03/2023 COLOR UA (POCT) Dark yellow 08/03/2023 CLARITY UA (POCT) Value: Slightly Cloudy 08/03/2023 Creatinine Creatinine Date Value Ref Range Status 12/28/2023 1.82 (H) 0.73 - 1.22 mg/dL Final 12/27/2023 1.88 (H) 0.50 - 1.40 mg/dL Final Comment: Patients receiving either N-Acetylcysteine (NAC) or Metamizole prior to venipuncture, may have falsely depressed results. 06/28/2023 0.83 0.73 - 1.22 mg/dL Final 04/30/2023 1.04 0.73 - 1.22 mg/dL Final PSA PSA Screening (ng/mL) Date Value 10/03/2013 2.04 08/03/2012 1.83 OFFICE DATA: POST-VOID RESIDUAL BLADDER VOLUME: YES, 787 cc IMAGING: CT 2022: 07/08/2023 8:08 AM - Radiology, [place] In Impression IMPRESSION: Moderate right hydroureteronephrosis with no visible obstructing calculus identified. Small stable indeterminate left adrenal nodule. Pelvis: No mass or ascites. Suggestion of mild prostatic enlargement. Bones and Soft Tissues: No acute abnormality. Streak artifact from right hip replacement Lower thorax: Unremarkable. Supervisor Reclamation (topogram) images: Unremarkable. Review of Systems: PAIN ASSESSMENT: Chronic back pain GENERAL: No weight loss, malaise or fevers GI: No nausea, vomiting MUSCULOSKELETAL: generalized joint pain SKIN: Negative for rash HEMATOLOGY/LYMPHOLOGY: Negative for swollen nodes All other systems reviewed and noncontributory PHYSICAL EXAMINATION: VITALS: BP 120/80 (BP Site: Right Arm, BP Position: Sitting, BP Cuff Size: Regular Adult) Pulse 82 Temp 36.3 C (97.3 F) (Temporal) Resp 14 Ht 180.3 cm (5' 11 ) Wt 97.1 kg (214 lb) SpO2 96% BMI 29.85 kg/m GENERAL: alert, no distress, normal affect, chronically ill appearing. RESPIRATORY: normal effort ABDOMEN: soft, non-tender GENITAL: - SCROTUM: no rashes, no edema RECTAL: approximately 65 g prostate, no nodules PELVIC FLOOR: no tenderness EXTREMITIES: generalized weakness. Uses wheel chair. SKIN: normal NEUROLOGIC: normal ASSESSMENT/PLAN: 1. 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 - ICD9: 600.01, 788.21, ICD10: N40.1, R39.14 (primary diagnosis) MDM: The patient has lower urinary tract symptoms suggestive of benign prostatic hyperplasia with AUR. UA with LE/PARKER Normal/No FHX of prostate cancer. I discussed treatment options at length including r/b/a of each. I also discussed the role of further evaluation with UDS, TRUS and cysto if indicated. Discussed the role of pharmacotherapy, including risks, benefits and alternatives: Alpha-eric therapy [e.g. Tamsulosin] - potential risks of dizziness, asthenia, orthostasis, and retrograde ejaculation. PVR = 725ml. ISC completed and taught how to complete ISC by nursing staff. Plan: Restart Flomax - consider increasing to 2 caps. ISC Nurse visit tomorrow at [place] for PVR follow up in 2 weeks. - UA DIP, URINE (POC) - POST VOID RESIDUAL - TAMSULOSIN 0.4 MG CAPSULE 2. Overflow incontinence of urine - ICD9: 788.38, ICD10: N39.490 Plan as above Consider Cysto/TRUS with our Urology team. - TAMSULOSIN 0.4 MG CAPSULE 3. Screening for genitourinary condition - ICD9: V81.6, ICD10: Z13.89 PVR = 787ml - UA DIP, URINE (POC) - POST VOID RESIDUAL 4. Urinary retention - ICD9: 788.20, ICD10: R33.9 Plan as above PVR = 787ml ISC void =725ml Start Flomax Go to ER for inability to ISC or urinate within 8 hours. 5. Hydronephrosis, unspecified hydronephrosis type - ICD9: 591, ICD10: N13.30 Recheck CMP Consider follow up RBUS. I spent a total of 60 minutes on the date of the service which included preparing to see the patient, [id number] patient care, completing clinical documentation, performing a medically appropriate examination, counseling and educating the patient/family/caregiver and ordering medications, tests, or procedures. Consultation requested by Dr. Marbella Zaidi [address] [facility] [address] for an opinion regarding BPH and my final recommendations will be communicated back to the requesting physician by way of shared Medical record or letter via US mail. Bharathi Wiggins DNP, MYRA Department of Urology [facility] documented in this encounter [facility] 01-03-2024 Note [facility] 01-03-2024 History of Present illness Narrative 73 year old male left without being seen due to me running behind and he had another health care appointment. Duong Zaidi PA-C documented in this encounter [facility] 01-03-2024 Note [facility] 01-03-2024 Miscellaneous Notes Patient is coming in today to be seen at 1:40. Please remind Don he needs his renal labs completed. Thanks, Duong Zaidi PA-C documented in this encounter [facility] 01-01-2024 Miscellaneous Notes Pts friend called and is notified of providers message. Pt will be seeing Bharathi Rosalie SCHNEIDER on Wednesday as well. Shelby Baker RN Go ahead and keep appt Pts friend Jocelin Jiménez called and is notified of providers results and instructions. She voices understanding. Transferred to scheduled to set up appt with Urology. Please call Jocelin Jiménez if she did not get through to scheduling. Did provider still want Pt to come in to see him on Wednesday. Shelby Baker RN Ultrasound shows bladder not emptying. (Also with debris). Causing the kidneys to back up. Refer to urology and see if we can get him in soon. Recheck bmp in one week documented in this encounter [facility] 12-31-2023 Miscellaneous Notes Ok. I did not see that in other message. Can do that. Yesterday Christy have given instruction that in light of upcoming surgery to go ahead and finish ATB. Tried patient twice. Line busy each time. Try again later. Steff Dominguez Urine culture was negative. It is not a uti. Macrobid was started to cover the urine until it came back. Can stop the antibiotic. Follow other instructions Abena had given him. documented in this encounter [facility] 12-31-2023 History of Present illness Narrative Radiology Service Progress Note PATIENT NAME: Miroslava Peralta DATE OF SERVICE: December 31, 2023 TIME: 11:36 AM PATIENT IDENTITY VERIFICATION COMPLETED USING TWO (2) IDENTIFIERS: Name and Date of confirmed by patient verbally. FALL SCREENING: Has the patient had 2 falls in the last year or 1 fall with injury or currently using an Ambulatory Assistive Device (Walker, Cane, Wheelchair, Crutches, etc.)? Yes, Patient High Risk for Falls What interventions were put in place to prevent falls during this visit? Instructed Patient to Call for Help if Needed, Offered Assistance with Transfers/Clothing, Instructed Patient to Remain Seated (Not on Exam Table) Until Exam, Increased Observations by Caregivers, and Escorted to/from Restroom PATIENT GENDER DATA: Male PATIENT RELEVANT IMPLANT DATA REVIEWED: Not Applicable PATIENT PRESENTS WITH AN IMPLANTABLE OR ATTACHED TAILERCPA: No RADIOLOGY DEPARTMENT: Ultrasound PERIPHERAL IV DATA: Not applicable SIGNED BY: Radha Kelly RDMS T December 31, 2023 11:36 AM documented in this encounter [facility] 12-31-2023 Note [facility] 12-30-2023 Miscellaneous Notes Thad Jiménez. The culture was contaminated. I recommend that he finish antibiotic in light of surgery. Pts friend called and is notified of providers results and instructions. She voices understanding. She was asking if Pt would be able to cut the Naproxen in half because he really hurts when he doesn't take it. Urine culture is back can you check to make sure the correct antibiotic was ordered. Friend was put through to scheduling to set up US and f/u appointment. Culture >=100,000 CFU/ml Normal urogenital yolanda <10,000 CFU/ml Lactose negative gram negative bacilli Abnormal Shelby Baker RN Attempted pt's number which rings fast busy. Attempted work number listed and VM was not pt or anyone listed under his contacts. LM on pt's friend Jocelin Jiménez's phone as there is msg on phone comments that it is ok to discuss medical issues with her. Phone call to pt, phone rings fast busy. Logan Aviles LPN Can please let patient know that I received his labs. His urine looks like it may be infected. The culture is still in progress. However, lets go ahead and start him on an antibiotic while we are awaiting the results. I sent macrobid to the pharmacy. Lets also have him get an ultrasound of the kidneys and bladder. The order is. Please help schedule. He should also increase his water intake. He should continue to avoid the naproxen (nsaids). If he gets any severe symptoms (fever/chills, n/v, abdominal pain, inability to urinate, etc), he should proceed to the ER. Can we please get him scheduled for a follow-up next week. He is likely going to need additional labwork at that time. Abena Beckford APRN.MYRA documented in this encounter [facility] 12-30-2023 Note HNO ID: [id number] Author: EDENILSON CHAUDHRY APRN.CNP Service: ? Author Type: Nurse Practitioner Type: Progress Notes Filed: 12/30/2023 08:49 Note Text: Summary: update [place] and PCP agree patient needs optimized. Repeat labs were done and his Cre remains elevated, Hgb has dropped to 10.5. He is being delayed for optimization. [facility] 12-27-2023 Note HNO ID: [id number] Author: EDENILSON CHAUDHRY APRN.MYRA Service: ? Author Type: Nurse Practitioner Type: Progress Notes Filed: 12/27/2023 15:19 Note Text: Summary: abnormal labs I sent a secure chat to PCP and Allan regarding labs, concerning for MUNA and anemia when labs were completely NML 6 mos ago. [facility] 12-27-2023 Note HNO ID: [id number] Author: BHARATHI ARRIAGA PA-C Service: ? Author Type: Nurse Practitioner Type: Progress Notes Filed: 12/29/2023 13:59 Note Text: PACC Consult SERVICE DATE: 12/27/2023 SERVICE TIME: 1:30 PM PRIMARY CARE PHYSICIAN: Marbella Zaidi PA-C REASON FOR VISIT: Miroslava Peralta is a 73 year old male who is scheduled for C3-C6 laminoplasty at the request of Dr. Lemus for PACC consult. The patient has the following: ACTIVE PROBLEM LIST Hypertension Sleeping Difficulty S/P Hip Replacement S/P Shoulder Joint Replacement Mgus (Monoclonal Gammopathy of Unknown Significance) Former Smoker Neurogenic Claudication Obesity, Class I, Bmi 30-34.9 S/P Laminectomy Post-Op Pain Chronic Vertigo Intractable Low Back Pain Rib Fractures Periprosthetic Fracture Around Internal Prosthetic Right Hip Joint (Hcc) Chronic Constipation Fecal Smearing Paresthesia of saddle area: Cauda equina ruled out Ddd (Degenerative Disc Disease), Lumbar Hypogonadism in Male High Serum Follicle Stimulating Hormone (Fsh) 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 Patient is myelopathic (gait imbalance, BUE/BLE weakness and paresthesias, numbness). PMH: HTN, anemia with hx of transfusion, depression, BPH with urinary retention 09/2023, hyponatremia, leukocytosis, chronic hep C (treated, Madelaine),MUNA 09/2023, freq UTIs, dysphagia (on the problem list), constipation PAST MEDICAL HISTORY Diagnosis Date Acute pharyngitis, unspecified Acute posthemorrhagic anemia Arthritis Bilateral primary osteoarthritis of hip BPH without obstruction/lower urinary tract symptoms Chronic hepatitis C without hepatic coma (HCC) 01/05/2019 10/10/2021 Hep C not detectable 06/16/[address] Augustine. Completed treatment. 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 Dysphagia, oral phase Hip arthritis History of transfusion HTN (hypertension) Well controlled on medication--Managed by PCP Insomnia, unspecified Leukocytosis 11/22/1986 [place] admission - thought leukemia and he refused tests Overflow incontinence of urine S/P hip replacement PAST SURGICAL HISTORY Procedure Laterality Date ARTHRP ACETBLR/PROX FEM PROSTC AGRFT/ALGRFT Right 07/25/2014 Hip replacement, total, right BACK SURGERY HX Lumbar spine surgery COLONOSCOPY 07/16/2003 random biopsies negative COLONOSCOPY FLX DX W/COLLJ SPEC WHEN PFRMD 06/27/2013 Colonoscopy JOINT REPLACEMENT HX Right Total shoulder-- PAST SURGICAL HISTORY OF 1997 shoulder surgery bilateral PAST SURGICAL HISTORY OF 1997 tendon repair bilat elbows. SKIN BIOPSY HX FAMILY HISTORY Problem Relation Age of Onset Cancer Mother breast cancer Hypertension Mother None Father father in train accident at yuni age Hypertension Sister SOCIAL HISTORY: Social History Tobacco Use Smoking status: Former Packs/day: 2.00 Years: 23.00 Additional pack years: 0.00 Total pack years: 46.00 Types: Cigarettes Quit date: 11/22/1992 Years since quittin.1 Passive exposure: Never Smokeless tobacco: Never Vaping Use Vaping Use: Never used Substance Use Topics Alcohol use: Not Currently Comment: quit in 1991. Drug use: No Comment: Quit drugs in . MEDICATIONS: Prior to Admission medications as of 12/28/23 1344 Medication Sig Last Dose Taking meclizine (ANTIVERT) 12.5 mg tab Take 1 tablet by mouth three times a day. Yes testosterone (ANDROGEL) 50 mg / 5 g (1%) Apply 1 Packet as directed once daily for 90 days. Patient taking differently: Apply 1 Packet as directed once daily. Never filled prescription Yes Melatonin 5 mg cap Take 1 capsule by mouth daily at bedtime. Patient taking differently: Take 5 mg by mouth daily at bedtime. Last dose 12/26/23 Yes ferrous sulfate EC 324 mg (65 mg iron) TbEC Take 1 tablet by mouth two times a day with meals. Yes gabapentin (NEURONTIN) 300 mg capsule Take 2 capsules by mouth three times a day for 90 days. Yes lisinopril (ZESTRIL) 20 mg tablet Take 1 tablet by mouth once daily. Patient taking differently: Take 20 mg by mouth every morning. Yes amLODIPine (NORVASC) 10 mg tablet Take 1 tablet by mouth once daily. Patient taking differently: Take 10 mg by mouth every morning. Yes traZODone (DESYREL) 50 mg tablet Take 1 tablet by mouth daily at bedtime. Yes buPROPion XL (WELLBUTRIN XL) 300 mg 24 hr tablet Take 1 tablet by mouth once daily. Patient taking differently: Take 300 mg by mouth every evening. Yes tamsulosin (FLOMAX) 0.4 mg Take 1 capsule by mouth daily at bedtime. Yes naproxen (NAPROSYN) 500 mg tablet Take 500 mg by mouth two times a day with meals. Last dose 12/27/23-- No hold orders from Yes polyethylene glycol 3350 17 gram packet Take 17 g by mouth once daily. Dissolv (more content not included)... [facility] 12-27-2023 Note HNO ID: [id number] Author: EDENILSON CHAUDHRY APRN.DIRECTOR OF TESTING Service: ? Author Type: Nurse Practitioner Type: Progress Notes Filed: 12/27/2023 15:19 Note Text: Summary: dos meds PATIENT MEDICATION INSTRUCTIONS Please read below carefully for your personalized instructions. Medications: If you are on blood thinner or anticoagulants including aspirin, please confirm with your surgical team on when to stop these medications. Unless instructed differently by your surgical team, stay on all of your medications until your surgery. Pre-Surgery Med Instructions Medication Instructions meclizine (ANTIVERT) 12.5 mg tab Take morning of surgery with a sip of water, no other fluids testosterone (ANDROGEL) 50 mg / 5 g (1%) DO NOT TAKE MORNING OF SURGERY Melatonin 5 mg cap DO NOT TAKE MORNING OF SURGERY ferrous sulfate EC 324 mg (65 mg iron) TbEC DO NOT TAKE MORNING OF SURGERY gabapentin (NEURONTIN) 300 mg capsule Take morning of surgery with a sip of water, no other fluids lisinopril (ZESTRIL) 20 mg tablet DO NOT TAKE MORNING OF SURGERY amLODIPine (NORVASC) 10 mg tablet Take morning of surgery with a sip of water, no other fluids traZODone (DESYREL) 50 mg tablet DO NOT TAKE MORNING OF SURGERY buPROPion XL (WELLBUTRIN XL) 300 mg 24 hr tablet DO NOT TAKE MORNING OF SURGERY tamsulosin (FLOMAX) 0.4 mg DO NOT TAKE MORNING OF SURGERY naproxen (NAPROSYN) 500 mg tablet STOP THIS MEDICATION TODAY. NOTIFY YOUR SURGEON THAT YOU HAVE NOT STOPPED. polyethylene glycol 3350 17 gram packet DO NOT TAKE MORNING OF SURGERY menthol/camphor (BIOFREEZE TOPICAL) DO NOT TAKE MORNING OF SURGERY senna (SENOKOT) 8.6 mg tab DO NOT TAKE MORNING OF SURGERY acetaminophen (TYLENOL) 325 mg tablet PRN if needed If you take any medications for erectile dysfunction-Cialis (Tadalafil), Levitra, Staxyn (Vardenafil) Viagra (Sildenenafil please do not take these for 48 hours before surgery. If you have any medication changes between receiving these instructions and your surgery date, please provide this updated information with the nurse who calls you the week day prior to your surgical procedure so we can update your list and provide you with updated instructions for the morning of your procedure. [facility] 12-27-2023 Miscellaneous Notes Spoke with Friend and scheduled pt for tomorrow Jimmy continues to ring busy Jimmy roberts Received fax from Dr Alberto's office requesting surgical clearance for patient. Patient is scheduled for C3-6 laminoplasty on 12/31/23. Attempted to reach pt. Line busy. Will attempt later. Pt needs to be seen for clearance. documented in this encounter [facility] 12-27-2023 Note HNO ID: [id number] Author: EDENILSON CHAUDHRY APRN.DIRECTOR OF TESTING Service: ? Author Type: Nurse Practitioner Type: Progress Notes Filed: 12/27/2023 15:19 Note Text: Summary: preanesthesia review We did not get his history yet, but there should be enough to get his history put together. C3-C6 laminoplasty 12/31 [place] (2.5hrs) 73yo male, exsmoker, remote drug and ETOH abuse (1991). Patient is myelopathic (gait imbalance, BUE/BLE weakness and paresthesias, numbness). PMH: HTN, anemia with hx of transfusion, depression, BPH with urinary retention 09/2023, hyponatremia, leukocytosis, chronic hep C (treated, Madelaine),MUNA 09/2023, freq UTIs, dysphagia (on the problem list), constipation CT cervical spine 12/17/23 No acute fracture or traumatic malalignment of the cervical spine. Multilevel degenerative spondylosis with up to moderate spinal canal narrowing and moderate to severe neuroforaminal narrowing most prominent at C5-6. No high-grade cervical spinal canal stenosis ECHO 2020 (syncope): EF 65, stage 1 DD, LA enlargement, 1+ MR, PASP 30mmHg, mild TR EKG 03/2023: 82bpm, NSR, LAD, cannot r/o ant infarct, age ? [facility] 12-20-2023 Note HNO ID: [id number] Author: REMY LEMUS MD Service: ? Author Type: Physician Type: Progress Notes Filed: 12/20/2023 18:39 Note Text: Remy Lemus MD [facility] Orthopaedic Surgery - Orthopaedic Spine Surgeon [address], [address], [place] [address] [facility], [facility] [address], [place] [address] Phone: [phone] FAX: [phone] Spine Surgery Outpatient Note Service Date: 12/20/2023 Chief Complaint: Follow-up visit for cervical myelopathy History of Present Illness Miroslava Peralta is a 73 year old male with who was last seen in the office on 12/14/2023 for chief complaint of gait imbalance, bilateral upper and lower extremity weakness, numbness, and paresthesias. At our prior visit I recommended CT scan of the cervical spine for operative planning. Miroslava Peralta presents today for review of imaging and plan of care discussion. He has had no change in his symptoms since her prior visit. He continues to have severe gait imbalance, numbness and paresthesias in the bilateral upper extremities, and weakness in the bilateral upper and lower extremities. He has severe difficulty with his dexterity and fine motor tasks. His incontinence is unchanged. He is anxious for surgery to address his issues. Summary of Symptoms Pain Location: Cervical and lumbar spine Radiation of Pain: None Weakness: Upper and lower extremities (global) Dexterity Issues: Yes Imbalance: Yes Falls: Yes Bowel/Bladder Dysfunction: Yes Change in symptoms: None Prior Conservative Treatment Physical Therapy: Yes Medications: Naproxen and acetaminophen Pain Management: No Injections: No Surgery: No Other: No The following portions of the patient's history were reviewed and updated as appropriate: allergies, current medications, past family history, past medical history, past social history, past surgical history and problem list. 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 Augustine. Completed treatment. 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 Dysphagia, oral phase Hip arthritis History of transfusion HTN (hypertension) Insomnia, unspecified Leukocytosis 11/22/1986 [place] admission - thought leukemia and he refused tests Overflow incontinence of urine S/P hip replacement PAST SURGICAL HISTORY Procedure Laterality Date ARTHRP ACETBLR/PROX FEM PROSTC AGRFT/ALGRFT Right 07/25/2014 Hip replacement, total, right COLONOSCOPY 07/16/03 random biopsies negative COLONOSCOPY FLX DX W/COLLJ SPEC WHEN PFRMD 06/27/2013 Colonoscopy JOINT REPLACEMENT HX PAST SURGICAL HISTORY OF 1997 shoulder surgery bilateral PAST SURGICAL HISTORY OF 1997 tendon repair bilat elbows. SKIN BIOPSY HX FAMILY HISTORY Problem Relation Age of Onset Cancer Mother breast cancer Hypertension Mother None Father father in train accident at yuni age Hypertension Sister Social History Tobacco Use Smoking status: Former Packs/day: 2.00 Years: 23.00 Additional pack years: 0.00 Total pack years: 46.00 Types: Cigarettes Quit date: 11/22/1992 Years since quittin.0 Smokeless tobacco: Never Vaping Use Vaping Use: Never used Substance Use Topics Alcohol use: Not Currently Comment: quit in 1991. Drug use: No Comment: Quit drugs in ~. ALLERGIES Allergen Reactions Cardizem [Diltiazem* Other: See Comments panic attack Diovan [Valsartan] GI Upset Caused nausea Hyzaar [Losartan-Hy* Other: See Comments Mood change Lopressor [Metoprol* Other: See Comments no energy, wiped pt out Medications: meclizine (ANTIVERT) 12.5 mg tab Take 1 tablet by mouth three times a day. testosterone (ANDROGEL) 50 mg / 5 g (1%) Apply 1 Packet as directed once daily for 90 days. Melatonin 5 mg cap Take 1 capsule by mouth daily at bedtime. ferrous sulfate EC 324 mg (65 mg iron) TbEC Take 1 tablet by mouth two times a day with meals. (more content not included)... [facility] 12-17-2023 Note [facility] 12-14-2023 Note HNO ID: [id number] Author: REMY LEMUS MD Service: ? Author Type: Physician Type: Progress Notes Filed: 12/15/2023 21:33 Note Text: Remy Lemus MD [facility] Orthopaedic Surgery - Orthopaedic Spine Surgeon [address] [facility], [address], [facility] [address], [place] [address] Phone: [phone] FAX: [phone] Spine Surgery Outpatient Note Service Date: 12/14/2023 Referring Provider: Gudelia Paul [place] [id number] Chief Complaint: Gait imbalance, bilateral upper and lower extremity weakness, numbness, and paresthesias History of Present Illness Miroslava Peralta is a 73 year old male with medical history significant for HTN, hepatitis C, dysphagia presenting with friend as a new patient today. Miroslava Peralta presents with primary complaint of gait imbalance, bilateral upper and lower extremity weakness, numbness, and paresthesias. The patient has history of fall and traumatic loosening of right femoral component. He has undergone multiple surgeries between December and March 2023 for this issue. He reports that symptoms of gait imbalance and lower extremity weakness have been present since before the time of the fall, but have been progressively worsening therapy. He additionally reports weakness, numbness, and paresthesias of the upper and lower extremities. He has significant difficulty with dexterity and fine motor tasks. Over the last few months, he has also developed numbness of his penis and urinary incontinence. He is able to ambulate with great difficulty using a walker, but uses a wheelchair for longer distances. He has pain in the bilateral buttocks and thighs when standing upright. He denies smoking. Denies prior surgery on the cervical or lumbar spine. Summary of Symptoms Pain Location: Cervical and lumbar spine Radiation of Pain: None Weakness: Upper and lower extremities (global) Dexterity Issues: Yes Imbalance: Yes Falls: Yes Bowel/Bladder Dysfunction: yes Prior Conservative Treatment Physical Therapy: Yes Medications: Naproxen and acetaminophen Pain Management: No Injections: No Surgery: No Other: No The following portions of the patient's history were reviewed and updated as appropriate: allergies, current medications, past family history, past medical history, past social history, past surgical history and problem list. 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 Augustine. Completed treatment. 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 Dysphagia, oral phase Hip arthritis History of transfusion HTN (hypertension) Insomnia, unspecified Leukocytosis 11/22/1986 [place] admission - thought leukemia and he refused tests Overflow incontinence of urine S/P hip replacement PAST SURGICAL HISTORY Procedure Laterality Date ARTHRP ACETBLR/PROX FEM PROSTC AGRFT/ALGRFT Right 07/25/2014 Hip replacement, total, right COLONOSCOPY 07/16/03 random biopsies negative COLONOSCOPY FLX DX W/COLLJ SPEC WHEN PFRMD 06/27/2013 Colonoscopy JOINT REPLACEMENT HX PAST SURGICAL HISTORY OF 1997 shoulder surgery bilateral PAST SURGICAL HISTORY OF 1997 tendon repair bilat elbows. SKIN BIOPSY HX FAMILY HISTORY Problem Relation Age of Onset Cancer Mother breast cancer Hypertension Mother None Father father in train accident at yuni age Hypertension Sister Social History Tobacco Use Smoking status: Former Packs/day: 2.00 Years: 23.00 Additional pack years: 0.00 Total pack years: 46.00 Types: Cigarettes Quit date: 11/22/1992 Years since quittin.0 Smokeless tobacco: Never Vaping Use Vaping Use: Never used Substance Use Topics Alcohol use: Not Currently Comment: quit in 1991. Drug use: No Comment: Quit drugs in . ALLERGIES Allergen Reactions Cardizem [Diltiazem* Other: See Comments panic attack Diovan [Vals (more content not included)... [facility] 12-14-2023 Note HNO ID: [id number] Author: VERO KC MA Service: ? Author Type: Chlorine Operator Type: Progress Notes Filed: 12/15/2023 21:33 Note Text: REVIEW OF SYSTEMS: GENERAL: dizzy PAIN: Chronic Pain CARDIOVASCULAR: Negative for chest pain, leg swelling and palpations. MSK: Positive for joint swelling SKIN: Negative for lesions, rash, itching, metal sensitivity NEURO: Numbness/tingling of extremties ENDOCRINE: Negative for diabetic associated symptoms HEMATOLOGY: Negative for excessive bleeding, clots, bleeding disorders. [facility] 12-08-2023 Note [facility] 12-01-2023 Note [facility] 11-01-2023 Miscellaneous Notes TC to patient who verbalized understanding. Please contact patient to set up lab appointment for 3 months. Thank you. SONDRA Dumont Left message for patient to return call. Yudy Nelson Ma Images from the original note were not included. Marbella Zaidi PA-C [facility] Dejuan Moise Please let patient know I placed order for Androgel: foolw instructions, labs in 3 months. Thanks, Duong Zaidi PA-C documented in this encounter [facility] 10-28-2023 History of Present illness Narrative 73 year old male with c/o here with brother for follow up Primary hypertension (primary encounter diagnosis) Current meds: Lisinopril 20mg daily Patient is compliant with meds Yes Monitors bp at home: No. If yes, readings: Denies side effects: Dyspnea: No. Edema: No. Palpitations: No. Syncope: No. Headache: No. Dizziness: Yes. With movement intermittently. Frequent near falls r/t to leg weakness. Chest pain: No. Last 3 Encounter BP Readings: Date: BP: 09/28/2023 108/64 08/03/2023 124/72 07/29/2023 118/78 Last 2 Encounter Wt Readings: Date: Wt: 10/20/2023 95.3 kg (210 lb) 09/28/2023 95.3 kg (210 lb) Ddd (degenerative disc disease), lumbar Paresthesia of saddle area: cauda equina ruled out Post laminectomy syndrome Intractable low back pain Current medications: Gabapentin 300mg 2 caps three times a day Naprosyn 500mg twice a day with food Saw orthopedic surgeon Doing another set of MRIs: asking if they can be done here to avoid having to set up travel. Having difficulty walking, mostly weak to left. Has fallen a few times, not injured. Feels hard to coordinate legs. Also feels off balance. Mgus (monoclonal gammopathy of unknown significance) Followed by [facility], stable labs Hypogonadism in male Component Latest Ref Rng & Units 09/11/2022 11/02/2022 Testosterone Free 3.28 - 12.2 ng/dL 7.02 Testosterone 240 - 950 ng/dL 335 Estradiol 17B <38 pg/mL <25 LH 1.8 - 10.8 mIU/mL 9.7 FSH 1.5 - 12.4 mIU/mL 23.5 (H) 28.1 (H) 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 FAMILY HISTORY Problem Relation Age of Onset Cancer Mother breast cancer Hypertension Mother None Father father in train accident at yuni age Hypertension Sister PAST MEDICAL HISTORY Diagnosis Date Acute pharyngitis, unspecified Acute posthemorrhagic anemia Arthritis Bilateral primary osteoarthritis of hip BPH without obstruction/lower urinary tract symptoms Chronic hepatitis C without hepatic coma (HCC) 01/05/2019 10/10/2021 Hep C not detectable 06/16/[address] Augustine. Completed treatment. 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 Dysphagia, oral phase Hip arthritis History of transfusion HTN (hypertension) Insomnia, unspecified Leukocytosis 11/22/1986 [place] admission - thought leukemia and he refused tests Overflow incontinence of urine S/P hip replacement PAST SURGICAL HISTORY Procedure Laterality Date ARTHRP ACETBLR/PROX FEM PROSTC AGRFT/ALGRFT Right 07/25/2014 Hip replacement, total, right COLONOSCOPY 07/16/03 random biopsies negative COLONOSCOPY FLX DX W/COLLJ SPEC WHEN PFRMD 06/27/2013 Colonoscopy JOINT REPLACEMENT HX PAST SURGICAL HISTORY OF 1997 shoulder surgery bilateral PAST SURGICAL HISTORY OF 1997 tendon repair bilat elbows. SKIN BIOPSY HX Social History Tobacco Use Smoking status: Former Packs/day: 2.00 Years: 23.00 Additional pack years: 0.00 Total pack years: 46.00 Types: Cigarettes Quit date: 11/22/1992 Years since quittin.9 Smokeless tobacco: Never Vaping Use Vaping Use: Never used Substance Use Topics Alcohol use: Not Currently Comment: quit in 1991. Drug use: No Comment: Quit drugs in ~. 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 90 tablet 3 amLODIPine (NORVASC) 10 mg tablet Take 1 tablet by mouth once daily. 90 tablet 3 traZODone (DESYREL) 50 mg tablet Take 1 tablet by mouth daily at bedtime. 90 tablet 3 buPROPion XL (WELLBUTRIN XL) 300 mg 24 hr tablet Take 1 tablet by mouth once daily. 90 tablet 3 Melatonin 5 mg cap Take 1 capsule by mouth daily at bedtime. 90 capsule 3 tamsulosin (FLOMAX) 0.4 mg Take 1 capsule by mouth daily at bedtime. 90 capsule 3 gabapentin (NEURONTIN) 300 mg capsule Take 2 capsules by mouth three times daily for 90 days. 540 capsule 0 ferrous sulfate EC 324 mg (65 mg iron) TbEC Take 1 tablet by mouth twice daily with meals. 180 tablet 1 naproxen (NAPROSYN) 500 mg tablet Take 500 mg by mouth twice daily with meals. polyethylene glycol 3350 17 gram packet Take 17 g by mouth once daily. Dissolve dose in 4 - 8 ounces of liquid and take as directed. menthol/camphor (BIOFREEZE TOPICAL) Apply to affected area three times daily. Apply to posterior hand and right scapula for pain and order to apply every four hours as needed for pain not to exceed more than four total applications per day. senna (SENOKOT) 8.6 mg tab Take 1 tablet by mouth twice daily as needed for constipation. acetaminophen (TYLENOL) 325 mg tablet Take 2 tablets by mouth every 6 hours as needed (mild pain or fever >100). (Patient taking differently: Take 650 mg by mouth every 6 hours as needed (mild pain or fever >100). 500 MG- two by mouth every eight hours as needed) No current facility-administered medications for this visit. Covid-19 Vaccine(1) Never done DTaP,Tdap,Td Vaccine(1 - Tdap) Never done Hepatitis A Vaccine(1 of 2 - Risk 2-dose series) Never done Shingrix Vaccine(1 of 2) Never done RSV Vaccine(1 - 1-dose 60+ series) Never done Advance Directive Discussion due on 11/22/2022 Depression Assessment due on 11/22/2022 Colorectal Cancer Screening due on 06/27/2023 Influenza Vaccine(1) due on 07/23/2023 EXAM: BP 128/72 Pulse 86 Temp 36.4 C (97.6 F) Resp 16 Wt 98.9 kg (218 lb) SpO2 96% BMI 30.42 kg/m Pleasant adult man in no acute distress. Alert and oriented all spheres. Focused but cheerful, euthymic. Normal affect and cognition. Speech normal. No deficits to learning or comprehension. Skin warm, dry, pink to lips and nailbeds. Normal turgor. Respirations regular and unlabored. HEENT: NCAT. No scleral icterus or conjunctival injection. TM's clear. Nose and oropharynx free from injection or lesion. Oral membranes moist and pink. No cervical lymph nodes. Thyroid non-tender, no masses, or enlargement. Carotids pulses 2+/4+ without bruits. No JVD with HOB at 30 degrees. Chest is normal shape. Lungs are clear to all palencia with good air exchange through out. HRRR without murmur or gallop. No lifts, heaves, or rubs. Upper and lower extremities with solid strength testing (my full weight on arms. Has gait insecuriy, ataxia. Sensory intact. Extrem: no clubbing or cyanosis. Edema: none. Extremities are warm and pink with prompt capillary refill. ASSESSMENT/PLAN: 1. Primary hypertension - ICD9: 401.9, ICD10: I10 (primary diagnosis) - Controlled - Continue current medications - Recommend home blood pressure monitoring, to bring results to next visit - Encouraged sodium restriction, DASH or Mediterranean diet - Recommend regular aerobic exercise 2. DDD (degenerative disc disease), lumbar - ICD9: 722.52, ICD10: M51.36 3. Paresthesia of saddle area: Cauda equina ruled out - ICD9: 782.0, ICD10: R20.2 4. Post laminectomy syndrome - ICD9: 722.80, ICD10: M96.1 5. Intractable low back pain - ICD9: 724.2, ICD10: M54.59 Will see if we can schedule MRIs here. Still suspect ataxia is r/t hx ETOH abuse 6. MGUS (monoclonal gammopathy of unknown significance) - ICD9: 273.1, ICD10: D47.2 Follow [facility], stable 7. Hypogonadism in male - ICD9: 257.2, ICD10: E29.1 Trial testosterone replacement, , Folow with labs in 3 months - TESTOSTERONE 1 % (50 MG/5 GRAM) TRANSDERMAL GEL PACKET 8. Status post replacement of right shoulder joint - ICD9: V43.61, ICD10: Z96.611 9. Status post right hip replacement - ICD9: V43.64, ICD10: Z96.641 stable 10. Sleeping difficulty - ICD9: 780.50, ICD10: G47.9 Continue present management 11. 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 12. Encounter for immunization - ICD9: V03.89, ICD10: Z23 - INFLUENZA VACCINE, PRSV FREE, AGE 65+ YR, HIGH DOSE, QUADRIVALENT (FLUZONE HIGH-DOSE) Some of this note may have been copied and pasted for the purpose of history context and comparison and has been adjusted for changes in prior data. Marbella Zaidi PA-C documented in this encounter [facility] 10-28-2023 Note [facility] 10-21-2023 Note HNO ID: [id number] Author: Gudelia Samuel MD Service: ? Author Type: Physician Type: Progress Notes Filed: 10/21/2023 11:29 PM Note Text: ORTHOPAEDIC OFFICE NOTE CHIEF COMPLAINT: Follow-up right periprosthetic femur fracture HISTORY OF PRESENT ILLNESS: Miroslava Peralta is a 73 year old male who presents for Pulm evaluation of right periprosthetic femur fracture multiple revision surgeries most recently on 04/02/2023. Regards to the hip he seems to be doing well. He is not having any pain at the hip. He does report that he is having increasing difficulty ambulating. He is a foot drop at baseline but has had worsening numbness in the bilateral lower extremities. This been associated with urinary incontinence as well as worsening balance. He is also having difficulty with hand control or writing. He denies current fevers chills nausea vomiting weight loss fatigue or malaise. He was recently hospitalized for recurrent UTI. Reviewed nursing note and current pain scale. PAST MEDICAL HISTORY Diagnosis Date Acute pharyngitis, unspecified Acute posthemorrhagic anemia Arthritis Bilateral primary osteoarthritis of hip BPH without obstruction/lower urinary tract symptoms Chronic hepatitis C without hepatic coma (HCC) 01/05/2019 10/10/2021 Hep C not detectable 06/16/[address] Augustine. Completed treatment. 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 Dysphagia, oral phase Hip arthritis History of transfusion HTN (hypertension) Insomnia, unspecified Leukocytosis 11/22/1986 [place] admission - thought leukemia and he refused tests Overflow incontinence of urine S/P hip replacement PAST SURGICAL HISTORY Procedure Laterality Date ARTHRP ACETBLR/PROX FEM PROSTC AGRFT/ALGRFT Right 07/25/2014 Hip replacement, total, right COLONOSCOPY 07/16/03 random biopsies negative COLONOSCOPY FLX DX W/COLLJ SPEC WHEN PFRMD 06/27/2013 Colonoscopy JOINT REPLACEMENT HX PAST SURGICAL HISTORY OF 1997 shoulder surgery bilateral PAST SURGICAL HISTORY OF 1997 tendon repair bilat elbows. SKIN BIOPSY HX FAMILY HISTORY Problem Relation Age of Onset Cancer Mother breast cancer Hypertension Mother None Father father in train accident at yuni age Hypertension Sister Social History Tobacco Use Smoking status: Former Packs/day: 2.00 Years: 23.00 Additional pack years: 0.00 Total pack years: 46.00 Types: Cigarettes Quit date: 11/22/1992 Years since quittin.9 Smokeless tobacco: Never Vaping Use Vaping Use: Never used Substance Use Topics Alcohol use: Not Currently Comment: quit in 1991. Drug use: No Comment: Quit drugs in . MEDICATIONS: Current Outpatient Medications Medication Sig lisinopril (ZESTRIL) 20 mg tablet Take 1 tablet by mouth once daily. amLODIPine (NORVASC) 10 mg tablet Take 1 tablet by mouth once daily. traZODone (DESYREL) 50 mg tablet Take 1 tablet by mouth daily at bedtime. buPROPion XL (WELLBUTRIN XL) 300 mg 24 hr tablet Take 1 tablet by mouth once daily. Melatonin 5 mg cap Take 1 capsule by mouth daily at bedtime. tamsulosin (FLOMAX) 0.4 mg Take 1 capsule by mouth daily at bedtime. gabapentin (NEURONTIN) 300 mg capsule Take 2 capsules by mouth three times daily for 90 days. ferrous sulfate EC 324 mg (65 mg iron) TbEC Take 1 tablet by mouth twice daily with meals. naproxen (NAPROSYN) 500 mg tablet Take 500 mg by mouth twice daily with meals. polyethylene glycol 3350 17 gram packet Take 17 g by mouth once daily. Dissolve dose in 4 - 8 ounces of liquid and take as directed. menthol/camphor (BIOFREEZE TOPICAL) Apply to affected area three times daily. Apply to posterior hand and right scapula for pain and order to apply every four hours as needed for pain not to exceed more than four total applications per day. senna (SENOKOT) 8.6 mg tab Take 1 tablet by mouth twice daily as needed for constipation. acetaminophen (TYLENOL) 325 mg tablet Take 2 tablets by mouth every 6 hours as needed (mild pain or fever >100). (Patient taking differently: Take 650 mg by mouth every 6 hours as needed (mild pain or fever >100). 500 MG- two by mouth every eight hours as needed) No current facility-administered medications for this visit. ALLERGIES: ALLERGIES Allergen Reactions Cardizem [Diltiazem* Other: See Comments panic attack Diovan [Valsartan] GI Upset Caused nausea Hyzaar [Losartan-Hy* Other: See Comments Mood change Lopressor [Metoprol* Other: See Comments no energy, wiped pt out PHYSICAL EXAMINATION: Resp 15 Ht 5' 10.98 (1.80m) Wt 210 lb (95.3kg) BMI 29.30 kg/(m2). General Appearance: Well appearing, alert, in no acute distress, well-hydrated, well nourished. Skin: Skin color, texture, turgor normal, no suspicious rashes or lesions. Psych: Patient is alert and oriented to person, time and place. Mood and affect ar (more content not included)... [facility] 10-21-2023 History of Present illness Narrative ORTHOPAEDIC OFFICE NOTE CHIEF COMPLAINT: Follow-up right periprosthetic femur fracture HISTORY OF PRESENT ILLNESS: Miroslava Peralta is a 73 year old male who presents for Pulm evaluation of right periprosthetic femur fracture multiple revision surgeries most recently on 04/02/2023. Regards to the hip he seems to be doing well. He is not having any pain at the hip. He does report that he is having increasing difficulty ambulating. He is a foot drop at baseline but has had worsening numbness in the bilateral lower extremities. This been associated with urinary incontinence as well as worsening balance. He is also having difficulty with hand control or writing. He denies current fevers chills nausea vomiting weight loss fatigue or malaise. He was recently hospitalized for recurrent UTI. Reviewed nursing note and current pain scale. PAST MEDICAL HISTORY Diagnosis Date Acute pharyngitis, unspecified Acute posthemorrhagic anemia Arthritis Bilateral primary osteoarthritis of hip BPH without obstruction/lower urinary tract symptoms Chronic hepatitis C without hepatic coma (HCC) 01/05/2019 10/10/2021 Hep C not detectable 06/16/[address] Augustine. Completed treatment. 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 Dysphagia, oral phase Hip arthritis History of transfusion HTN (hypertension) Insomnia, unspecified Leukocytosis 11/22/1986 [place] admission - thought leukemia and he refused tests Overflow incontinence of urine S/P hip replacement PAST SURGICAL HISTORY Procedure Laterality Date ARTHRP ACETBLR/PROX FEM PROSTC AGRFT/ALGRFT Right 07/25/2014 Hip replacement, total, right COLONOSCOPY 07/16/03 random biopsies negative COLONOSCOPY FLX DX W/COLLJ SPEC WHEN PFRMD 06/27/2013 Colonoscopy JOINT REPLACEMENT HX PAST SURGICAL HISTORY OF 1997 shoulder surgery bilateral PAST SURGICAL HISTORY OF 1997 tendon repair bilat elbows. SKIN BIOPSY HX FAMILY HISTORY Problem Relation Age of Onset Cancer Mother breast cancer Hypertension Mother None Father father in train accident at yuni age Hypertension Sister Social History Tobacco Use Smoking status: Former Packs/day: 2.00 Years: 23.00 Additional pack years: 0.00 Total pack years: 46.00 Types: Cigarettes Quit date: 11/22/1992 Years since quittin.9 Smokeless tobacco: Never Vaping Use Vaping Use: Never used Substance Use Topics Alcohol use: Not Currently Comment: quit in 1991. Drug use: No Comment: Quit drugs in . MEDICATIONS: Current Outpatient Medications Medication Sig lisinopril (ZESTRIL) 20 mg tablet Take 1 tablet by mouth once daily. amLODIPine (NORVASC) 10 mg tablet Take 1 tablet by mouth once daily. traZODone (DESYREL) 50 mg tablet Take 1 tablet by mouth daily at bedtime. buPROPion XL (WELLBUTRIN XL) 300 mg 24 hr tablet Take 1 tablet by mouth once daily. Melatonin 5 mg cap Take 1 capsule by mouth daily at bedtime. tamsulosin (FLOMAX) 0.4 mg Take 1 capsule by mouth daily at bedtime. gabapentin (NEURONTIN) 300 mg capsule Take 2 capsules by mouth three times daily for 90 days. ferrous sulfate EC 324 mg (65 mg iron) TbEC Take 1 tablet by mouth twice daily with meals. naproxen (NAPROSYN) 500 mg tablet Take 500 mg by mouth twice daily with meals. polyethylene glycol 3350 17 gram packet Take 17 g by mouth once daily. Dissolve dose in 4 - 8 ounces of liquid and take as directed. menthol/camphor (BIOFREEZE TOPICAL) Apply to affected area three times daily. Apply to posterior hand and right scapula for pain and order to apply every four hours as needed for pain not to exceed more than four total applications per day. senna (SENOKOT) 8.6 mg tab Take 1 tablet by mouth twice daily as needed for constipation. acetaminophen (TYLENOL) 325 mg tablet Take 2 tablets by mouth every 6 hours as needed (mild pain or fever >100). (Patient taking differently: Take 650 mg by mouth every 6 hours as needed (mild pain or fever >100). 500 MG- two by mouth every eight hours as needed) No current facility-administered medications for this visit. ALLERGIES: ALLERGIES Allergen Reactions Cardizem [Diltiazem* Other: See Comments panic attack Diovan [Valsartan] GI Upset Caused nausea Hyzaar [Losartan-Hy* Other: See Comments Mood change Lopressor [Metoprol* Other: See Comments no energy, wiped pt out PHYSICAL EXAMINATION: Resp 15 Ht 5' 10.98 (1.80m) Wt 210 lb (95.3kg) BMI 29.30 kg/(m^2). General Appearance: Well appearing, alert, in no acute distress, well-hydrated, well nourished. Skin: Skin color, texture, turgor normal, no suspicious rashes or lesions. Psych: Patient is alert and oriented to person, time and place. Mood and affect are normal. Respiratory: Breathing is symmetric and unlabored Gait: Patient was examined in a wheelchair today. Extremities: Right lower extremity examined. Laterally based incision is well-healed without drainage or sign of infection. There is no focal tenderness or palpable mass. Gentle range of motion of the hip is relatively pain-free Lymphatic: There is no palpable lymphadenopathy Peripheral Pulses: Normal. Neurologic: Bilateral lower extremities were examined. There is decreased sensation bilaterally. This is his baseline IMAGES: Physician office building radiographs, 10/21/2023. AP lateral views of the right hip and femur were obtained and reviewed. These demonstrate healed periprosthetic femur fracture and long stemmed revision hip arthroplasty with constrained liner. Fracture of the greater trochanter appears stable. There is no destructive lesion appreciable. Soft tissues otherwise unremarkable. Plan ASSESSMENT AND PLAN: 1. Dislocation of hip joint prosthesis, subsequent encounter - ICD9: V58.89, ICD10: T84.029D, Z96.649 (primary diagnosis) 2. 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, subsequent encounter - ICD9: V54.29, ICD10: M97.8XXD, Z96.649 3. Spinal stenosis of cervical region - ICD9: 723.0, ICD10: M48.02 4. Spinal stenosis of lumbar region with neurogenic claudication - ICD9: 724.03, ICD10: M48.062 5. Myelopathy (HCC) - ICD9: 336.9, ICD10: G95.9 6. Urinary incontinence, unspecified type - ICD9: 788.30, ICD10: R32 Functional Plan: Patient is a 73-year-old male presenting for follow evaluation of right periprosthetic femur fracture and subsequent multiple revision surgeries most recently in March 2023. In regards to the hip he seems to be doing well. He is not really having any pain at the hip. He does however have other concerning symptoms. He is having worsening numbness and lower extremity control. He has significant decrease in balance and reports that he has been falling. He has had urinary retention as well as incontinence which seems to have resulted in multiple urinary tract infections. This is also associated with perineal numbness. He is also having worsening control of his upper extremities and difficulty with fine hand movements including writing. Overall on concern for significantly worsening myelopathy. I discussed this with the patient and his son. I will order stat MRIs of the lumbar and C-spine and see him back afterwards for further treatment recommendations. All his questions were answered satisfactorily. He expressed understanding of and agreement with treatment plan. Medical Decision Making: Problems: Moderate: Acute complicated injury High: Illness/injury w/ threat to life/body function Data: Unique test result(s) reviewed: 2 Unique test(s) ordered: 3+ Risk: Low: Low risk from testing/treatment Medical Decision Making Level: 4 - Moderate Return After MRI. Gudelia Samuel MD documented in this encounter [facility] 09-30-2023 Miscellaneous Notes Order is signed. Trying to fax over to [facility]. Will send via social services technician. On desk to sign. I don't recall receiving anything today but may have. Sorry but could you please check. Thanks, Duong Zaidi PA-C Michael with [facility] calling. States she will be re-faxing over an order today that needs signed by Duong Zaidi regarding a verbal order sent to them regarding pt's trazadone. Please sign and fax back. Elyse Liu RN documented in this encounter [facility] 09-28-2023 Note [facility] 09-28-2023 History of Present illness Narrative Subjective HPI HPI Miroslava Peralta is a 73 year old male who presents today for CC of urinary frequency/now hesitancy. This started 5 days ago, now feeling sick and weak. Has tried nothing for relief. Symptoms are worsened by nothing. Risk factors hx if uti. .Patient presents with: Urinary Frequency: Frequency, urgency and burning x 5 days PAST MEDICAL HISTORY Diagnosis Date Acute pharyngitis, unspecified Acute posthemorrhagic anemia Arthritis Bilateral primary osteoarthritis of hip BPH without obstruction/lower urinary tract symptoms Chronic hepatitis C without hepatic coma (HCC) 01/05/2019 10/10/2021 Hep C not detectable 06/16/[address] Augustine. Completed treatment. 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 Dysphagia, oral phase Hip arthritis History of transfusion HTN (hypertension) Insomnia, unspecified Leukocytosis 11/22/1986 [place] admission - thought leukemia and he refused tests Overflow incontinence of urine S/P hip replacement PAST SURGICAL HISTORY Procedure Laterality Date ARTHRP ACETBLR/PROX FEM PROSTC AGRFT/ALGRFT Right 07/25/2014 Hip replacement, total, right COLONOSCOPY 07/16/03 random biopsies negative COLONOSCOPY FLX DX W/COLLJ SPEC WHEN PFRMD 06/27/2013 Colonoscopy JOINT REPLACEMENT HX PAST SURGICAL HISTORY OF 1997 shoulder surgery bilateral PAST SURGICAL HISTORY OF 1997 tendon repair bilat elbows. SKIN BIOPSY HX ALLERGIES Cardizem [Diltiazem Hcl], Diovan [Valsartan], Hyzaar [Losartan-Hydrochlorothiazide], and Lopressor [Metoprolol Tartrate] MEDICATIONS lisinopril (ZESTRIL) 20 mg tablet Take 1 tablet by mouth once daily. amLODIPine (NORVASC) 10 mg tablet Take 1 tablet by mouth once daily. traZODone (DESYREL) 50 mg tablet Take 1 tablet by mouth daily at bedtime. buPROPion XL (WELLBUTRIN XL) 300 mg 24 hr tablet Take 1 tablet by mouth once daily. Melatonin 5 mg cap Take 1 capsule by mouth daily at bedtime. tamsulosin (FLOMAX) 0.4 mg Take 1 capsule by mouth daily at bedtime. gabapentin (NEURONTIN) 300 mg capsule Take 2 capsules by mouth three times daily for 90 days. ferrous sulfate EC 324 mg (65 mg iron) TbEC Take 1 tablet by mouth twice daily with meals. naproxen (NAPROSYN) 500 mg tablet Take 500 mg by mouth twice daily with meals. polyethylene glycol 3350 17 gram packet Take 17 g by mouth once daily. Dissolve dose in 4 - 8 ounces of liquid and take as directed. menthol/camphor (BIOFREEZE TOPICAL) Apply to affected area three times daily. Apply to posterior hand and right scapula for pain and order to apply every four hours as needed for pain not to exceed more than four total applications per day. senna (SENOKOT) 8.6 mg tab Take 1 tablet by mouth twice daily as needed for constipation. acetaminophen (TYLENOL) 325 mg tablet Take 2 tablets by mouth every 6 hours as needed (mild pain or fever >100). (Patient taking differently: Take 650 mg by mouth every 6 hours as needed (mild pain or fever >100). 500 MG- two by mouth every eight hours as needed) FAMILY HISTORY Problem Relation Age of Onset Cancer Mother breast cancer Hypertension Mother None Father father in train accident at yuni age Hypertension Sister Social History Tobacco Use Smoking status: Former Packs/day: 2.00 Years: 23.00 Additional pack years: 0.00 Total pack years: 46.00 Types: Cigarettes Quit date: 11/22/1992 Years since quittin.8 Smokeless tobacco: Never Vaping Use Vaping Use: Never used Substance Use Topics Alcohol use: Not Currently Comment: quit in 1991. Drug use: No Comment: Quit drugs in . Review of Systems Constitutional: Negative for chills, fever and weight loss. Respiratory: Negative for cough, shortness of breath and wheezing. Cardiovascular: Negative for chest pain and palpitations. Gastrointestinal: Negative for abdominal pain, blood in stool, constipation, diarrhea, heartburn, melena, nausea and vomiting. Genitourinary: Positive for dysuria, frequency and urgency. Negative for flank pain and hematuria. Musculoskeletal: Negative for myalgias. Objective Blood pressure 108/64, pulse 82, temperature 36.4 C (97.6 F), temperature source Tympanic, resp. rate 18, weight 95.3 kg (210 lb), SpO2 95 %. Physical Exam Constitutional: General: He is not in acute distress. Appearance: Normal appearance. He is not toxic-appearing. Cardiovascular: Rate and Rhythm: Normal rate and regular rhythm. Heart sounds: Normal heart sounds. Pulmonary: Effort: Pulmonary effort is normal. Breath sounds: Normal breath sounds. Abdominal: General: Bowel sounds are normal. Palpations: Abdomen is soft. Tenderness: There is no abdominal tenderness. Skin: General: Skin is warm and dry. ASSESSMENT/PLAN: 1. Urinary frequency - ICD9: 788.41, ICD10: R35.0 Took patient 1 hour to urinate few cc of white/purulent material, unable to urinate I will refer to ER. Urinary hesitancy and pyuria - UA DIP, URINE (POC) - URINE CULTURE Joshua Vieira APRN.DIRECTOR OF TESTING documented in this encounter [facility] 08-16-2023 Miscellaneous Notes Order faxed to [facility] See previous note Telephone on 08/16/23 CONSULT TO PHYSICAL THERAPY [facility] due to transportation availability Duong Tineo PA-C Marilee- [facility]- reports patient had a right total hip revision, and needs pcp to send order to [facility], for outpatient PT. Reports patient will have to go to [facility], b/c he needs transportation and [facility] provides that. Please send order and Marilee will help patient schedule. documented in this encounter [facility] 08-05-2023 Miscellaneous Notes Pt was notified of the results. Pt verbalized understanding. Alondra Puente MA Please notify that urine culture showed likely contamination. If still having symptoms will need to retest. Hematuria noted on ua, patient should have urine retested with pcp in 2-4 weeks to see if persisting. documented in this encounter [facility] 07-29-2023 History of Present illness Narrative 72 year old male with c/o Pain syndrome, chronic (primary encounter diagnosis) Post laminectomy syndrome Polyarthropathy Pain constant, most of the time it's bearable Getting better with movement. Not out of chair too much. PT/OT twice a week Sleeping difficulty Okay, feels he gets 6-8h interrupted by urinating 2-3 times. Props urinal Paresthesia of saddle area: cauda equina ruled out Fecal smearing: only once since last time here BM generally once every few days Eating prunes which has been helping. S/p laminectomy Intractable low back pain Current medications: Naprosyn 500mg twice a day No stomach issues was long as takes with food. Biggest concerns numbness and tingling, all his joints hurt. Better with movement. Primary hypertension Current meds: Amlodipine 10mg daily Lisinopril 20mg daily Patient is compliant with meds Yes Monitors bp at home: No. If yes, readings: Denies side effects: Yes. Chest pain: No. Dyspnea: No. Edema: No. Palpitations: No. Syncope: none, lightheaded, dizzy with walking, intermittent. Notes better control balance. Headache: No. Dizziness: as above. Last 3 Encounter BP Readings: Date: BP: 07/29/2023 118/78 06/28/2023 152/100 05/07/2023 81/50 Last 2 Encounter Wt Readings: Date: Wt: 07/29/2023 97.1 kg (214 lb) 07/07/2023 95.3 kg (210 lb) Mgus (monoclonal gammopathy of unknown significance) Legs are about the same. HISTORIES FAMILY HISTORY Problem Relation Age of Onset Cancer Mother breast cancer Hypertension Mother None Father father in train accident at yuni age Hypertension Sister PAST MEDICAL HISTORY Diagnosis Date Acute pharyngitis, unspecified Acute posthemorrhagic anemia Arthritis Bilateral primary osteoarthritis of hip BPH without obstruction/lower urinary tract symptoms Chronic hepatitis C without hepatic coma (HCC) 01/05/2019 10/10/2021 Hep C not detectable 06/16/[address] Augustine. Completed treatment. 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 Dysphagia, oral phase Hip arthritis History of transfusion HTN (hypertension) Insomnia, unspecified Leukocytosis 11/22/1986 [place] admission - thought leukemia and he refused tests Overflow incontinence of urine S/P hip replacement PAST SURGICAL HISTORY Procedure Laterality Date ARTHRP ACETBLR/PROX FEM PROSTC AGRFT/ALGRFT Right 07/25/2014 Hip replacement, total, right COLONOSCOPY 07/16/03 random biopsies negative COLONOSCOPY FLX DX W/COLLJ SPEC WHEN PFRMD 06/27/2013 Colonoscopy JOINT REPLACEMENT HX PAST SURGICAL HISTORY OF 1997 shoulder surgery bilateral PAST SURGICAL HISTORY OF 1997 tendon repair bilat elbows. SKIN BIOPSY HX Social History Tobacco Use Smoking status: Former Packs/day: 2.00 Years: 23.00 Additional pack years: 0.00 Total pack years: 46.00 Types: Cigarettes Quit date: 11/22/1992 Years since quittin.6 Smokeless tobacco: Never Vaping Use Vaping Use: Never used Substance Use Topics Alcohol use: Not Currently Comment: quit in 1991. Drug use: No Comment: Quit drugs in . 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 90 tablet 0 traZODone (DESYREL) 150 mg tablet Take 1 tablet by mouth daily at bedtime. 15 tablet 0 gabapentin (NEURONTIN) 300 mg capsule Take 2 capsules by mouth three times daily for 90 days. 540 capsule 0 traZODone (DESYREL) 50 mg tablet Take 1 tablet by mouth daily at bedtime. 90 tablet 1 buPROPion XL (WELLBUTRIN XL) 300 mg 24 hr tablet Take 1 tablet by mouth once daily. 90 tablet 1 Melatonin 5 mg cap Take 1 capsule by mouth daily at bedtime. 90 capsule 3 tamsulosin (FLOMAX) 0.4 mg Take 1 capsule by mouth daily at bedtime. 90 capsule 3 ferrous sulfate EC 324 mg (65 mg iron) TbEC Take 1 tablet by mouth twice daily with meals. 180 tablet 1 naproxen (NAPROSYN) 500 mg tablet Take 500 mg by mouth twice daily with meals. ondansetron (ZOFRAN) 4 mg tablet Take by mouth every 8 hours as needed for nausea/vomiting. polyethylene glycol 3350 17 gram packet Take 17 g by mouth once daily. Dissolve dose in 4 - 8 ounces of liquid and take as directed. menthol/camphor (BIOFREEZE TOPICAL) Apply to affected area three times daily. Apply to posterior hand and right scapula for pain and order to apply every four hours as needed for pain not to exceed more than four total applications per day. senna (SENOKOT) 8.6 mg tab Take 1 tablet by mouth twice daily as needed for constipation. acetaminophen (TYLENOL) 325 mg tablet Take 2 tablets by mouth every 6 hours as needed (mild pain or fever >100). (Patient taking differently: Take 650 mg by mouth every 6 hours as needed (mild pain or fever >100). 500 MG- two by mouth every eight hours as needed) amLODIPine (NORVASC) 10 mg tablet Take 1 tablet by mouth once daily. 90 tablet 1 lisinopril (ZESTRIL, PRINIVIL) 20 mg tablet Take 1 tablet by mouth once daily. 90 tablet 1 No current facility-administered medications for this visit. BP CONTROLLED (<130/80) Never done DTAP,TDAP,TD(1 - Tdap) Never done HEPATITIS A(1 of 2 - Risk 2-dose series) Never done SHINGRIX VACCINE(1 of 2) Never done ADVANCE DIRECTIVE DISCUSSION due on 11/22/2022 DEPRESSION ASSESSMENT due on 11/22/2022 COLORECTAL CANCER SCREENING due on 06/27/2023 INFLUENZA(1) due on 07/23/2023 EXAM: BP 118/78 Pulse 67 Resp 16 Wt 97.1 kg (214 lb) SpO2 97% BMI 29.86 kg/m Pleasant adult man in no acute distress. Alert and oriented all spheres. Normal affect and cognition. Speech normal. No deficits to learning or comprehension. Skin warm, dry, pink to lips and nailbeds. Normal turgor. Respirations regular and unlabored. Energy level seems perked up a little: smiling, moving more quickly and sitting upright HEENT: NCAT. No scleral icterus or conjunctival injection. TM's clear. Nose and oropharynx free from injection or lesion. Oral membranes moist and pink. No cervical lymph nodes. Thyroid non-tender, no masses, or enlargement. Carotids pulses 2+/4+ without bruits. No JVD with HOB at 30 degrees. Chest is normal shape. Lungs are clear to all palencia with good air exchange through out. HRRR without murmur or gallop. No lifts, heaves, or rubs. Extrem: no clubbing or cyanosis. Edema: none. Extremities are warm and pink with prompt capillary refill. Able to stand with mild assist of one, Able to walk several steps holding onto my arms. ASSESSMENT/PLAN: 1. Pain syndrome, chronic - ICD9: 338.4, ICD10: G89.4 (primary diagnosis) 2. Post laminectomy syndrome - ICD9: 722.80, ICD10: M96.1 Seems to be improving. Feels tramadol is enough for pain right now. 3. Polyarthropathy - ICD9: 716.50, ICD10: M13.0 Persistent but improving with PT, OT. Will try to get covered as long as we can 4. Sleeping difficulty - ICD9: 780.50, ICD10: G47.9 Better 5. Paresthesia of saddle area: Cauda equina ruled out - ICD9: 782.0, ICD10: R20.2 persistent 6. Fecal smearing - ICD9: 787.62, ICD10: R15.1 Persistent but also notes improvement 7. Chronic constipation - ICD9: 564.00, ICD10: K59.09 Not currently 8. S/P laminectomy - ICD9: V45.89, ICD10: Z98.890 9. Intractable low back pain - ICD9: 724.2, ICD10: M54.59 As above, improving, seems hopeful 10. Primary hypertension - ICD9: 401.9, ICD10: I10 - Controlled - Continue current medications - Recommend home blood pressure monitoring, to bring results to next visit - Encouraged sodium restriction, DASH or Mediterranean diet - Recommend regular aerobic exercise 11. MGUS (monoclonal gammopathy of unknown significance) - ICD9: 273.1, ICD10: D47.2 Persistent paresthesia, stable 12. S/P revision of total hip - ICD9: V43.64, ICD10: Z96.649 Following with ortho F/u 3 months Marbella Zaidi PA-C documented in this encounter [facility] 07-27-2023 Telephone encounter Note Pt notified and the Tramadol is helping a little. He only takes if when needed and it is giving him some relief when taken. Zita Palmer LPN [facility] 07-27-2023 Miscellaneous Notes Pt notified and the Tramadol is helping a little. He only takes if when needed and it is giving him some relief when taken. Zita Palmer LPN Please verify if he is getting any relief with tramadol? The following approved medication requests have been transmitted electronically. Requested Prescriptions Signed Prescriptions Disp Refills traMADol (ULTRAM) 50 mg tablet 90 tablet 0 Sig: Take 1 tablet by mouth every 8 hours as needed for pain for up to 30 days. Authorizing Provider: Marbella ZAIDI traZODone (DESYREL) 150 mg tablet 15 tablet 0 Sig: Take 1 tablet by mouth daily at bedtime. Authorizing Provider: Marbella ZAIDI traZODone (DESYREL) 50 mg tablet 90 tablet 1 Sig: Take 1 tablet by mouth daily at bedtime. Authorizing Provider: Marbella ZAIDI PA-C Thanks, Greg Barton, PA-C Patient reports that is taking 1 50mg pills tramadol at a time. Also he is out of his tramadol and trazadone now. He will need orders sent to local pharmacy and also to mail order. Please verify if patient is getting pain relief with tramadol 100mg Duong Tineo PA-C Patient has been identified by name and date of : Yes Last office visit in this department: 06/28/23 Labs-06/28/23 NOV-07/29/23 RX INSTRUCTIONS: Patient aware RX will be sent to pharmacy. No need to notify patient. Patient phones requesting refills as follows: Requested Prescriptions Pending Prescriptions Disp Refills traMADol (ULTRAM) 50 mg tablet 28 tablet 0 Sig: Take 1 tablet by mouth every 6 hours as needed for pain. June 29, 2023 phoned and advised may take 1-2 tramadol q6h prn Marbella Zaidi PA-C traZODone (DESYREL) 150 mg tablet 15 tablet 0 Sig: Take 1 tablet by mouth daily at bedtime. Please review and advise. Jada Bonilla documented in this encounter [facility] 07-23-2023 Telephone encounter Note Please verify if he is getting any relief with tramadol? The following approved medication requests have been transmitted electronically. Requested Prescriptions Signed Prescriptions Disp Refills traMADol (ULTRAM) 50 mg tablet 90 tablet 0 Sig: Take 1 tablet by mouth every 8 hours as needed for pain for up to 30 days. Authorizing Provider: Marbella ZAIDI traZODone (DESYREL) 150 mg tablet 15 tablet 0 Sig: Take 1 tablet by mouth daily at bedtime. Authorizing Provider: Marbella ZAIDI traZODone (DESYREL) 50 mg tablet 90 tablet 1 Sig: Take 1 tablet by mouth daily at bedtime. Authorizing Provider: Marbella ZAIDI PA-C Thanks, Greg Barton, PA-C [facility] 07-23-2023 Telephone encounter Note Patient reports that is taking 1 50mg pills tramadol at a time. Also he is out of his tramadol and trazadone now. He will need orders sent to local pharmacy and also to mail order. [facility] 07-23-2023 Miscellaneous Notes Completed and on nursing desk 07/22/2023 Duong Tineo PA-C Type of form: HH orders Form received via fax When form is completed, Fax form to [phone] Form has been forwarded to Physician Mailbox: BEVERLY Page LPN Catie OT with [facility] calling with plan of care. They are extending his care and they will go 2 times a week for 2 weeks and 1 time a week for 1 week. They will be working on meal prep, showers, and home exercise plan. documented in this encounter [facility] 07-23-2023 Miscellaneous Notes Last Office Visit: 06/28/2023 Future Office Visit: 07/29/2023 Requested Prescriptions Pending Prescriptions Disp Refills gabapentin (NEURONTIN) 300 mg capsule 540 capsule 0 Sig: Take 2 capsules by mouth three times daily for 90 days. Date of Last Labs: 06/28/2023 documented in this encounter [facility] 07-23-2023 Telephone encounter Note Please verify if patient is getting pain relief with tramadol 100mg Duong Tineo PA-C [facility] 07-21-2023 Telephone encounter Note Patient has been identified by name and date of : Yes Last office visit in this department: 06/28/23 Labs-06/28/23 NOV-07/29/23 RX INSTRUCTIONS: Patient aware RX will be sent to pharmacy. No need to notify patient. Patient phones requesting refills as follows: Requested Prescriptions Pending Prescriptions Disp Refills traMADol (ULTRAM) 50 mg tablet 28 tablet 0 Sig: Take 1 tablet by mouth every 6 hours as needed for pain. June 29, 2023 phoned and advised may take 1-2 tramadol q6h prn Marbella Zaidi PA-C traZODone (DESYREL) 150 mg tablet 15 tablet 0 Sig: Take 1 tablet by mouth daily at bedtime. Please review and advise. Jada Bonilla [facility] 07-19-2023 Miscellaneous Notes Providers message left on [employer]. Melody Urbano LPN Reviewed and approve. Duong Tineo PA-C In previous encounter Mone requested verbal order for frequency order, copied/pasted below: Mone also asking for recert on jail visits, needs verbal order, for 2 visits weekly for 1 week, then 1 visits weekly for 2 weeks. She is working on his medications filling pill box. Please advise Please phone Mone with verbal approval: [phone] documented in this encounter [facility] 07-16-2023 Miscellaneous Notes The following approved medication requests have been transmitted electronically. Requested Prescriptions Signed Prescriptions Disp Refills buPROPion XL (WELLBUTRIN XL) 300 mg 24 hr tablet 90 tablet 1 Sig: Take 1 tablet by mouth once daily. Authorizing Provider: Marbella ZAIDI PA-C Mone from [facility] calling she is doing patient medication box and noticed he has no more refills on generic Wellbutrin 300 mg. Patient uses [facility] for his local pharmacy. She is not sure who increased his dose, may have been done when he was at [facility]. Computer shows he was taking 150 mg. Asking if Duong would do new rx? Mone also asking for recert on jail visits, needs verbal order, for 2 visits weekly for 1 week, then 1 visits weekly for 2 weeks. She is working on his medications filling pill box. Please advise documented in this encounter [facility] 07-12-2023 Miscellaneous Notes Received home health update via fax. Scanned to [employer] via [employer] for provider review. Please close encounter once reviewed. Pamela Rashid LPN documented in this encounter [facility] 07-09-2023 Miscellaneous Notes Phoned pt, spoke /c pt and caregiver. Notified of below results, both pt and caregiver verbalized understanding. Pt states he does have pain, but unsure if it's d/t fall (see TE from N today). Pt states he can't recall if he feels like he may have passed a stone or not. Caregiver stated that pt did have an appt with surgeon after fall and xray showed everything was ok. Caregiver and pt aware N phoned in this morning regarding the fall and dizziness and that a note was sent to provider. Please note and close encounter. Logan Aviles LPN ----- Message from Marbella Zaidi PA-C sent at 07/08/2023 6:48 PM EDT ----- Please let him know the CT showed no kidney stone but did show a dilated hydroureteronephrosis which is often r/t a stone. Any change in sx? Thanks, Duong Zaidi PA-C Mailbox is full, sent SMS notification ----- Message from Marbella Zaidi PA-C sent at 07/03/2023 7:00 AM EDT ----- Please let him know tests for inflammatory markers moderate elevation consistent with surgery. LAURO was mildly elevated: not enough to generate additional testing. Lyme was negative Blood count WNL Chemistries WNL except mild low sodium which is same as last 6 readings. Thanks, Duong Zaidi PA-C documented in this encounter [facility] 07-09-2023 Miscellaneous Notes Jackie- CHARGE NURSE- [facility], reports she saw patient yesterday and noted gabapentin and tylenol were missing in his pill box. Reports she learned the nursed filled it on the . Reports patient reports he had a fall that day and his friend thought the fall was related to the gabapentin, so removed it from his med box. Reports the fall was related to dizziness caused by gabapentin. Patient reported he is still having some dizziness, but has had dizziness since his surgery. Reports he is drinking plenty of fluids. Jackie reports BP yesterday was 115/72 sitting. Jackie put the gabapentin and tylenol back in patients pill box explaining to him, he should take it to manage his pain and not let the pain get ahead of him. Reports patient was agreeable. documented in this encounter [facility] 07-08-2023 History of Present illness Narrative ORTHOPAEDIC OFFICE NOTE CHIEF COMPLAINT: Follow-up right periprosthetic femur fracture HISTORY OF PRESENT ILLNESS: Miroslava Peralta is a 72 year old male who presents for Follow-up evaluation of right periprosthetic femur fracture treated with revision of femoral stem and internal fixation of the femur. His postoperative course was complicated by multiple episodes of instability. His most recent surgery was on 04/02/2023 in which his acetabular component was revised to a constrained liner. Overall he seems to be doing well. His pain seems very well controlled. For most part he does not seem to be having much pain at the hip. He does have other chronic sources of pain including his low back and left hip. He also has right foot drop likely secondary to severe spinal stenosis. Overall these things have been limiting his ability for rehab. He is using a walker with physical therapy to assist with ambulation but is mostly seeming to use a wheelchair for ambulation. He denies current fevers chills nausea vomiting weight loss fatigue or malaise. Reviewed nursing note and current pain scale. PAST MEDICAL HISTORY Diagnosis Date Acute pharyngitis, unspecified Acute posthemorrhagic anemia Arthritis Bilateral primary osteoarthritis of hip BPH without obstruction/lower urinary tract symptoms Chronic hepatitis C without hepatic coma (HCC) 01/05/2019 10/10/2021 Hep C not detectable 06/16/[address] Augustine. Completed treatment. 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 Dysphagia, oral phase Hip arthritis History of transfusion HTN (hypertension) Insomnia, unspecified Leukocytosis 11/22/1986 [place] admission - thought leukemia and he refused tests Overflow incontinence of urine S/P hip replacement PAST SURGICAL HISTORY Procedure Laterality Date ARTHRP ACETBLR/PROX FEM PROSTC AGRFT/ALGRFT Right 07/25/2014 Hip replacement, total, right COLONOSCOPY 07/16/03 random biopsies negative COLONOSCOPY FLX DX W/COLLJ SPEC WHEN PFRMD 06/27/2013 Colonoscopy JOINT REPLACEMENT HX PAST SURGICAL HISTORY OF 1997 shoulder surgery bilateral PAST SURGICAL HISTORY OF 1997 tendon repair bilat elbows. SKIN BIOPSY HX FAMILY HISTORY Problem Relation Age of Onset Cancer Mother breast cancer Hypertension Mother None Father father in train accident at yuni age Hypertension Sister Social History Tobacco Use Smoking status: Former Packs/day: 2.00 Years: 23.00 Additional pack years: 0.00 Total pack years: 46.00 Types: Cigarettes Quit date: 11/22/1992 Years since quittin.6 Smokeless tobacco: Never Vaping Use Vaping Use: Never used Substance Use Topics Alcohol use: Not Currently Comment: quit in 1991. Drug use: No Comment: Quit drugs in . MEDICATIONS: Current Outpatient Medications Medication Sig Melatonin 5 mg cap Take 1 capsule by mouth daily at bedtime. tamsulosin (FLOMAX) 0.4 mg Take 1 capsule by mouth daily at bedtime. ferrous sulfate EC 324 mg (65 mg iron) TbEC Take 1 tablet by mouth twice daily with meals. traMADol (ULTRAM) 50 mg tablet Take 1 tablet by mouth every 6 hours as needed for pain. June 29, 2023 phoned and advised may take 1-2 tramadol q6h prn M Ignacio Zaidi PA-C traZODone (DESYREL) 150 mg tablet Take 1 tablet by mouth daily at bedtime. buPROPion XL (WELLBUTRIN XL) 150 mg 24 hr tablet Take 150 mg by mouth once daily. naproxen (NAPROSYN) 500 mg tablet Take 500 mg by mouth twice daily with meals. ondansetron (ZOFRAN) 4 mg tablet Take by mouth every 8 hours as needed for nausea/vomiting. polyethylene glycol 3350 17 gram packet Take 17 g by mouth once daily. Dissolve dose in 4 - 8 ounces of liquid and take as directed. menthol/camphor (BIOFREEZE TOPICAL) Apply to affected area three times daily. Apply to posterior hand and right scapula for pain and order to apply every four hours as needed for pain not to exceed more than four total applications per day. senna (SENOKOT) 8.6 mg tab Take 1 tablet by mouth twice daily as needed for constipation. acetaminophen (TYLENOL) 325 mg tablet Take 2 tablets by mouth every 6 hours as needed (mild pain or fever >100). (Patient taking differently: Take 650 mg by mouth every 6 hours as needed (mild pain or fever >100). 500 MG- two by mouth every eight hours as needed) gabapentin (NEURONTIN) 300 mg capsule Take 2 capsules by mouth three times daily for 90 days. amLODIPine (NORVASC) 10 mg tablet Take 1 tablet by mouth once daily. lisinopril (ZESTRIL, PRINIVIL) 20 mg tablet Take 1 tablet by mouth once daily. No current facility-administered medications for this visit. ALLERGIES: ALLERGIES Allergen Reactions Cardizem [Diltiazem* Other: See Comments panic attack Diovan [Valsartan] GI Upset Caused nausea Hyzaar [Losartan-Hy* Other: See Comments Mood change Lopressor [Metoprol* Other: See Comments no energy, wiped pt out PHYSICAL EXAMINATION: Resp 18 Ht 5' 10.98 (1.80m) Wt 210 lb (95.3kg) BMI 29.30 kg/(m^2). General Appearance: Well appearing, alert, in no acute distress, well-hydrated, well nourished. Skin: Skin color, texture, turgor normal, no suspicious rashes or lesions. Psych: Patient is alert and oriented to person, time and place. Mood and affect are normal. Respiratory: Breathing is symmetric and unlabored Gait: Patient was examined in a wheelchair today. Extremities: Right lower extremity examined. Laterally based incision is well-healed without drainage or sign of infection. There is no focal tenderness or palpable mass. Gentle range of motion of the hip is relatively pain-free Lymphatic: There is no palpable lymphadenopathy Peripheral Pulses: Normal. Neurologic: Bilateral lower extremities were examined. There is decreased sensation bilaterally. This is his baseline IMAGES: Physician office building radiographs, 07/07/2023. AP and lateral views of the right hip and femur were obtained reviewed. These demonstrate total hip arthroplasty with longstem femoral component and cables fixating the femur. Overall alignment is stable. There does appear to be some progressive consolidation at the fracture sites. There is a constrained acetabular liner. The hip remains well reduced. There is no destructive lesion appreciable. Soft tissues otherwise unremarkable. Plan ASSESSMENT AND PLAN: 1. Dislocation of hip joint prosthesis, subsequent encounter - ICD9: V58.89, ICD10: T84.029D, Z96.649 (primary diagnosis) 2. 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, subsequent encounter - ICD9: V54.29, ICD10: M97.8XXD, Z96.649 Functional Plan: Patient is a 72-year-old male presenting for follow-up evaluation after surgical fixation of right periprosthetic femur fracture and revision of his femoral component. This was complicated postoperatively by recurrent instability. Ultimately he was revised to a constrained acetabular liner on 04/02/2023. Today he seems to be doing well. For the most part he does not seem to be having pain at the hip or femur. Does have chronic sources of pain including the low back and left hip that seem to be making his rehab more difficult. Radiographs are stable. I discussed this with him in detail. Did encourage him to continue work physical therapy vigorously. He does sound like he is going to start with the pain management service soon to address some of his chronic pain issues. I will see him back in 3 months for repeat evaluation and radiographs unless issues should arise sooner. All of his questions were answered satisfactorily. He expressed understanding of and agreement with the treatment plan. Medical Decision Making: Problems: Moderate: Acute complicated injury Data: Unique test result(s) reviewed: 2 Unique test(s) ordered: 2 Risk: Low: Low risk from testing/treatment Medical Decision Making Level: 4 - Moderate Return in about 3 months (around 10/07/2023). Gudelia Samuel MD documented in this encounter [facility] 07-06-2023 History of Present illness Narrative Radiology Service Progress Note PATIENT NAME: Miroslava Peralta DATE OF SERVICE: July 06, 2023 TIME: 4:01 PM PATIENT IDENTITY VERIFICATION COMPLETED USING TWO (2) IDENTIFIERS: Name and Date of confirmed by patient verbally. FALL SCREENING: Has the patient had 2 falls in the last year or 1 fall with injury or currently using an Ambulatory Assistive Device (Walker, Cane, Wheelchair, Crutches, etc.)? No PATIENT GENDER DATA: Male PATIENT RELEVANT IMPLANT DATA REVIEWED: Yes RADIOLOGY DEPARTMENT: CT; Exam(s) Completed: Abdomen/Pelvis PERIPHERAL IV DATA: Not applicable SIGNED BY: RT Fletcher(R) July 06, 2023 4:01 PM documented in this encounter [facility] 07-05-2023 Miscellaneous Notes Gracy with [facility] called in and reports they fill Pts medication box and Pt was out of some medications. [facility] didn't have refills as he was at [facility] for so long. She reports he had also bee on Ferrous Sulfate 324 mg. Pt does not have on his medication list except for back in 2013. If provider would like Pt on this can put through, otherwise remove. Patient has been identified by name and date of : Yes, Provider Duong GOEL Date 07/05/23 Time 1234. Gracy [facility] phones for refill(s): Requested Prescriptions Pending Prescriptions Disp Refills Melatonin 5 mg cap 90 capsule 3 Sig: Take by mouth daily at bedtime. tamsulosin (FLOMAX) 0.4 mg 90 capsule 3 Sig: Take 1 capsule by mouth daily at bedtime. Date of last office visit in primary care: 06/28/23 Future visit: 07/29/23 Last 2 Encounter Wt Readings: Date: Wt: 06/28/2023 95.3 kg (210 lb) 05/12/2023 86.6 kg (191 lb) Previous labs/tests for medication: Blood Pressure: BUN (mg/dL) Date Value 06/28/2023 21 11/04/2021 21 Sodium (mmol/L) Date Value 06/28/2023 134 11/04/2021 136 Last 1 Encounter BP Readings: Date: BP: 06/28/2023 152/100 Liver Function: ALT (U/L) Date Value 06/28/2023 9 11/04/2021 15 AST (U/L) Date Value 06/28/2023 13 11/04/2021 19 Please advise. Thank you. Shelby Baker, IMMANUEL documented in this encounter [facility] 07-02-2023 Miscellaneous Notes Detailed message left for Kate on secure line. Yudy Nelson Ma Reviewed and approved Thanks, Duong Zaidi PA-C Kate WILKERSON with [facility] calls to let provider know that she saw patient yesterday for ANTONIO hopson and would like to request 1-3 more social services technician visits through out the HH certification period to offer additional support to patient for community resources. Kate requests verbal order be called to [phone] and ok to leave voicemail as number is a secure work phone number. Licha Carcamo RN documented in this encounter [facility] 07-02-2023 Miscellaneous Notes Contacted patient and scheduled CT on . 07-06-2023 @ 3:40 pm Monse Guzman Phoned: UC was negative Large blood Still having right flank pain. Recommend CT flank to rule out stone States can't do CT tomorrow due to multiple appointments Instructed to go to ER if pain is severe. He states he will just wait until Wednesday if we can get it done then. Advised risk of reflux, infection kidney. He says he will wait til Wednesday. Tramadol double dose no help for pain. Telephone on 07/01/23 CT FLANK WO IVCON Thanks, Duong Zaidi PA-C Patient calling for lab results done 06/28/23. He is asking for UA results. States he is urinary symptoms of burning with urination and there is a strong odor to his urine. Krysta Lopez, IMMANUEL documented in this encounter [facility] 07-01-2023 Miscellaneous Notes See other TE Pt called in and was asking about lab and urine results. Let him know provider hadn't looked at those yet. Tried to go over information about dizziness and call got dropped. Called and left a voicemail for the Patient to call back and ask for a nurse to receive the providers message. Shelby Baker, RN Left detailed message for Marjan PT Left message for pt to return call Yudy Nelson Ma Noted. Push fluids, may need extra time to stand to avoid dizziness from prolonged sitting. Encourage progressive activity. Thanks, Duong Zaidi PA-C Marjan- PT- [facility]- reporting POC: will see patient 2 x's week for 4 weeks, for lower extremity strength, transfer & gait training, & balance. Reports when she arrived at patient's home today, his BP was 88/66 and he felt a little dizzy. Reports this is the first low reading they've gotten all week. After Marjan got him up walking BP increased to 122/73. Patient admits to Marjan this is the first time he's been up walking, doesn't really get up and move around much. documented in this encounter [facility] 07-01-2023 Miscellaneous Notes See other encounter Placed call to patient with no answer. Left VM for return call. Steff Dominguez Left message for patient to return call. Yudy Nelson Ma Images from the original note were not included. Marbella Zaidi PA-C [facility] María oMise Please notify patient WBCs in urine with rare bacteria: to be safe will start on Antibiotic: macrobid sent pending culture. Thanks, Duong Zaidi PA-C documented in this encounter [facility] 06-29-2023 Miscellaneous Notes 6:05 PM Phoned to update: all circuits are busy now . States this is unreal . Aggrevating, hasn't been in w/c before. Pain level same, no improvement with tramadol. Pain level 7/10. Has been able to sleep. Longest day out of bed today. Had one percocet left which helped him sleep last night. I told him he could try tramadol 2 tabs to see if improves pain better up to every 6h. Duong Zaidi PA-C Sabina RN with [facility] calls to give updated medication list to provider from discharge from [facility]: Prescription: Wellbutrin XL 300 mg daily Trazodone 100 mg 2 tablets at bedtime Flomax 0.4 mg at bedtime OTC: Melatonin 5 mg at HS Lidocaine Patch 4% on in AM and off in PM Iron 325 mg daily Miralax 17 gm daily Medication previously on and available in the home: Amlodipine 10 mg daily Lisinopril 20 mg daily Licha Carcamo, RN documented in this encounter [facility] 06-28-2023 Instructions Marbella Zaidi PA-C - 06/28/2023 3:06 PM EDT Tramadol as directed per prescription for pain being careful to limit to 1-2 doses a day unless it is more severe pain. Do not drive or operate dangerous machinery while on this medication. It may cause drowsiness or impair judgment and cause increased risk for falls. This medication may be habit forming if used regularly, and may cause drowsiness, so use caution. This medication may cause constipation so increase fiber and exercise if possible. Stimulant laxatives such as pericolace or Sennekot OTC may help if needed but should not be used over long periods. documented in this encounter [facility] 06-28-2023 History of Present illness Narrative 72 year old male with c/o f/u from 03/25/2023 hospitalization [facility] 03/31/2023 revision of total hip due to right CARMELINA instability 03/17/[address] Gudelia Samuel dx perirprosthetic hip fracture, Was on oxycodone x 2 days but now out Transferred to [facility] for PT, OT He doesn't know what medications he is on other than percocet. Asking if I can renew as only received #12 on discharge. States he has been on it for 5 months. Constant unrelenting pain in back from prior surgeries, recent TKA which had to remain fixed, and prolonged bedrest following. No transferred up to date medication record provided from [facility] discharge Component Latest Ref Rng & Units 04/05/2023 04/30/2023 WBC 3.70 - 11.00 k/uL 9.37 9.96 RBC 4.20 - 6.00 m/uL 3.22 (L) 3.53 (L) Hemoglobin 13.0 - 17.0 g/dL 9.0 (L) 9.8 (L) Hematocrit 39.0 - 51.0 % 28.6 (L) 30.0 (L) MCV 80.0 - 100.0 fL 88.8 85.0 MCH 26.0 - 34.0 pg 28.0 27.8 MCHC 30.5 - 36.0 g/dL 31.5 32.7 RDW-CV 11.5 - 15.0 % 15.6 (H) 17.2 (H) Platelet Count 150 - 400 k/uL 351 400 MPV 9.0 - 12.7 fL 8.6 (L) 8.2 (L) Neut% % 70.7 73.9 Abs Neut (ANC) 1.45 - 7.50 k/uL 6.63 7.35 Lymph% % 14.2 10.9 Abs Lymph 1.00 - 4.00 k/uL 1.33 1.09 Milam% % 10.6 8.4 Abs Milam <0.87 k/uL 0.99 (H) 0.84 Eosin% % 2.9 5.4 Abs Eosin <0.46 k/uL 0.27 0.54 (H) Baso% % 0.7 0.7 Abs Baso <0.11 k/uL 0.07 0.07 Immature Gran % % 0.9 0.7 IMMATURE GRANS (ABS) <0.10 k/uL 0.08 0.07 NRBC /100 WBC 0.0 0.0 Absolute nRBC <0.01 k/uL <0.01 <0.01 DTYPE Auto Auto Primary hypertension (primary encounter diagnosis) Current meds: Amlodipine 10mg daily Lisinopril 20mg daily [id number] HS Patient is compliant with meds Yes Monitors bp at home: No. If yes, readings: Denies side effects: Yes. Chest pain: No. Dyspnea: No. Edema: No. Palpitations: No. Syncope: No. Headache: No. Dizziness: No. Mgus (monoclonal gammopathy of unknown significance) 05/07/2023 f/ hematology Dr. Sanjay Bhat; Sx have worsened with paresthesias but maybe r/t recent surgeries. 06/13/[address] WO: adenomas L 2.6cm, R 1.9cm 04/3021 CT chest w/IVC: neg except a few borderline mediastinal lymph nodes 05/21/21 CT ab/pel w/IVC negative except bilat adrenal nodules 05/07/2022 f/u Dr. Bhat: recheck 1 year. 04/23/21 bone marrow: does not suggest lymphoplasmacytic lymphoma. 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 04/01/21 bone survey no destructive lesions identified 04/01/[address] Bhat. ESR 29, CK 554 (weight shirt trimmer). Neg: Lead, B2 microglubulin, B12, CMP, CBC/dif. UPEP+ monoclonal protein 24h w/M spine c/ interp 03/11/21 SPEP + m-protein, K/L ratio 1.17, UPEP negative Bilateral hand, foot and ankle numbness Component Latest Ref Rng & Units 05/05/2022 05/11/2022 04/30/2023 04/30/2023 04/30/2023 9:41 AM 9:41 AM 2:30 PM Albumin 3.43 - 5.41 g/dL 4.07 2.67 (L) Alpha 1 Globulin 0.18 - 0.43 g/dL 0.20 0.62 (H) Alpha 2 Globulin 0.42 - 0.98 g/dL 0.63 1.33 (H) Beta Globulin 0.61 - 1.17 g/dL 0.78 (L) 0.85 Gamma Globulin 0.53 - 1.51 g/dL 1.01 1.63 (H) Interpretation (Prot Electro) No definitive M protein is identified on protein electrophoresis. An M protein is identified on protein electrophoresis. (A) An atypical region of restricted mobility is identified on protein electrophoresis. (A) Interpretation Comment for Protein Electrophoresis See separate immunofixation report for characterization of monoclonal gammopathy. The atypical region is relatively poorly defined and may represent an unusual presentation of polyclonal immunoglobulins, but cannot rule out the presence of a low level M protein. If clinically indicated, monoclonal protein analysis and serum free light chain analysis are suggested to evaluate further for monoclonal gammopathy. M-Protein Location Gamma Fraction 1 M-Protein Concentration <=0.00 g/dL 0.17 (H) 0.00 SPE Staff Review Reviewed by To Meeks MD, Ph.D ([id number]) Reviewed by Mone Li MD Albumin, Urine (Prot Electro) % 61.60 32.40 Alpha 1 Globulin, Urine % 4.38 2.13 Alpha 2 Globulin, Urine % 11.32 12.96 Beta Globulin, Urine % 16.94 26.96 Gamma Globulin, Urine % 5.76 25.55 Interpretation (Urine Electro) No definitive M protein is identified on protein electrophoresis. No definitive M protein is identified on protein electrophoresis. No definitive M protein is identified on protein electrophoresis. Staff Review (Urine Electro) Reviewed by Mone Li MD Reviewed by Mone Li MD Result ([facility]) No M protein is identified. No M protein is identified. No M protein is identified. Interpretation ([facility]) Not Applicable N/A Staff Review ([facility]) Reviewed by Mone Li MD Reviewed by Mone Li MD Mize Free, Serum 3.3 - 19.4 mg/L 17.6 72.1 (H) Lambda Free, Serum 5.7 - 26.3 mg/L 11.3 47.1 (H) K/L Ratio, Serum 0.26 - 1.65 1.56 1.53 IgG 700 - 1,600 mg/dL 986 1,737 (H) IgA 70 - 400 mg/dL 132 238 IgM 40 - 230 mg/dL 171 221 MPA Result No M protein is identified. M protein is present. (A) M protein is present. (A) Interpretation (MPA) Atypical restricted bands are present in the IgM and kappa regions. Consistent with IgM kappa monoclonal gammopathy. Atypical restricted bands are present in the IgM and kappa regions. Consistent with IgM kappa monoclonal gammopathy. Staff Review ([facility]) Reviewed by To Meeks MD, Ph.D ([id number]) Reviewed by Mone Li MD B2 Microglobulin <3.1 mg/L 2.0 4.1 (H) Protein, Urine Random 0 - 20 mg/dL 5 29 (H) Protein, Total 6.3 - 8.0 g/dL 6.7 7.1 7.1 LD 135 - 225 U/L 115 (L) Neurogenic claudication S/p laminectomy Intractable low back pain Fecal smearing Paresthesia of saddle area: cauda equina ruled out 11/11/2022 [facility] ED visit: s/p decompressive laminectomy 04/18/2022 ED visit for abscess at incision. 03/20/2022 ED visit urinary retention, Worsening leg pain, difficulty ambulating, incontinent of formed stool with loss of sensation ( had mentioned stool streaks at our last visit). 11/12/2022 MRI spine: T10-T11: Broad-based shallow disc bulging/protrusion without cord impact. At least mild bilateral foraminal stenosis. T11-T12: Shallow disc bulging. Patent canal and foramina. T12-L1: Shallow disc bulging. Patent canal and foramina. L1-L2: Shallow disc bulging, facet and ligamentous hypertrophy; patent canal with narrowing of each subarticular zone, patent right foramen, mild left foraminal stenosis. L2-L3: Diffuse disc bulging, facet and ligamentous hypertrophy, short pedicles; mild-moderate canal stenosis with narrowing of each subarticular zone, patent foramina. L3-L4: Laminectomy changes, diffuse disc bulging, residual facet and ligamentous hypertrophy, short pedicles; moderate canal stenosis, mild-moderate bilateral foraminal stenosis. L4-L5: Laminectomy changes, diffuse disc bulging, residual facet hypertrophy, short pedicles; mild-moderate canal stenosis with asymmetric narrowing of the right subarticular zone, mild-moderate right and mild left foraminal stenosis. L5-S1: Diffuse disc bulging, facet arthropathy, ligamentous hypertrophy, short pedicles; patent canal, mild bilateral foraminal stenosis. Sacrum and iliac wings: The visualized sacrum and iliac wings are within normal limits. The presacral soft tissues are normal in appearance. 11/16/2022 MRI thoracic spine: 1. No evidence of pathologic marrow infiltration in the thoracic spine. 2. Chronic anterior wedging of some midthoracic vertebral bodies as described. Mild chronic anterior wedging of the T7, T8, and T9 vertebral bodies.Mild spinal canal stenosis at T6-7 and T10-11 due to disc bulge. 3. Degenerative changes as described: Moderate foraminal stenosis bilaterally at T1-T2, on the left at T6-7, on the left at T8-9, and bilaterally at T9-10 and T10-11 due to facet arthropathy. 4. Incidental T2/STIR hyperintensity within the T6 and T7 vertebral bodies with some adjacent edema in the prespinal soft tissues at this level, which could be due to recent trauma or inflammation. 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 Dysphagia, oral phase Hip arthritis History of transfusion HTN (hypertension) Insomnia, unspecified Leukocytosis 11/22/1986 [place] admission - thought leukemia and he refused tests Overflow incontinence of urine S/P hip replacement PAST SURGICAL HISTORY Procedure Laterality Date ARTHRP ACETBLR/PROX FEM PROSTC AGRFT/ALGRFT Right 07/25/2014 Hip replacement, total, right COLONOSCOPY 07/16/03 random biopsies negative COLONOSCOPY FLX DX W/COLLJ SPEC WHEN PFRMD 06/27/2013 Colonoscopy JOINT REPLACEMENT HX PAST SURGICAL HISTORY OF 1997 shoulder surgery bilateral PAST SURGICAL HISTORY OF 1997 tendon repair bilat elbows. SKIN BIOPSY HX Social History Tobacco Use Smoking status: Former Packs/day: 2.00 Years: 23.00 Total pack years: 46.00 Types: Cigarettes Quit date: 11/22/1992 Years since quittin.6 Smokeless tobacco: Never Vaping Use Vaping Use: Never used Substance Use Topics Alcohol use: Not Currently Comment: quit in 1991. Drug use: No Comment: Quit drugs in ~. ACTIVE PROBLEM LIST Hypertension Sleeping Difficulty S/P Hip Replacement S/P Shoulder Joint Replacement Chronic Hepatitis C Without Hepatic Coma (Hcc) Mgus (Monoclonal Gammopathy of Unknown Significance) Former Smoker Neurogenic Claudication Obesity, Class I, Bmi 30-34.9 S/P Laminectomy Post-Op Pain Chronic Vertigo Intractable Low Back Pain Rib Fractures Periprosthetic Fracture Around Internal Prosthetic Right Hip Joint (Hcc) Chronic Constipation Fecal Smearing Paresthesia of saddle area: Cauda equina ruled out Ddd (Degenerative Disc Disease), Lumbar Hypogonadism in Male High Serum Follicle Stimulating Hormone (Fsh) Testicular Atrophy Ed (Erectile Dysfunction) of Organic Origin Current Outpatient Medications Medication Sig Dispense Refill oxyCODONE IR (ROXICODONE) 5 mg immediate release tablet Take by mouth every 4 hours as needed for pain. buPROPion XL (WELLBUTRIN XL) 150 mg 24 hr tablet Take 150 mg by mouth once daily. naproxen (NAPROSYN) 500 mg tablet Take 500 mg by mouth twice daily with meals. ondansetron (ZOFRAN) 4 mg tablet Take by mouth every 8 hours as needed for nausea/vomiting. polyethylene glycol 3350 17 gram packet Take 17 g by mouth once daily. Dissolve dose in 4 - 8 ounces of liquid and take as directed. Melatonin 5 mg cap Take by mouth daily at bedtime. menthol/camphor (BIOFREEZE TOPICAL) Apply to affected area three times daily. Apply to posterior hand and right scapula for pain and order to apply every four hours as needed for pain not to exceed more than four total applications per day. tamsulosin (FLOMAX) 0.4 mg Take 1 capsule by mouth daily at bedtime. 90 capsule 3 senna (SENOKOT) 8.6 mg tab Take 1 tablet by mouth twice daily as needed for constipation. gabapentin (NEURONTIN) 300 mg capsule Take 2 capsules by mouth three times daily for 90 days. 540 capsule 0 acetaminophen (TYLENOL) 325 mg tablet Take 2 tablets by mouth every 6 hours as needed (mild pain or fever >100). (Patient taking differently: Take 650 mg by mouth every 6 hours as needed (mild pain or fever >100). 500 MG- two by mouth every eight hours as needed) amLODIPine (NORVASC) 10 mg tablet Take 1 tablet by mouth once daily. 90 tablet 1 traZODone (DESYREL) 150 mg tablet Take 1 tablet by mouth daily at bedtime. 90 tablet 1 lisinopril (ZESTRIL, PRINIVIL) 20 mg tablet Take 1 tablet by mouth once daily. 90 tablet 1 No current facility-administered medications for this visit. DTAP,TDAP,TD(1 - Tdap) Never done HEPATITIS A(1 of 2 - Risk 2-dose series) Never done SHINGRIX VACCINE(1 of 2) Never done ADVANCE DIRECTIVE DISCUSSION due on 11/22/2022 DEPRESSION ASSESSMENT due on 11/22/2022 COLORECTAL CANCER SCREENING due on 06/27/2023 EXAM: BP 152/100 Pulse 80 Resp 16 Wt 95.3 kg (210 lb) BMI 29.31 kg/m Pleasant adult man who looks much more frail, anxious, rocking, gasping with pain throughout the visit. Pleasant, alert and oriented all spheres. Normal affect and cognition. Speech normal. No deficits to learning or comprehension. Skin warm, dry, pink to lips and nailbeds. Normal turgor. Respirations regular and unlabored. HEENT: NCAT. No scleral icterus or conjunctival injection. TM's clear. Nose and oropharynx free from injection or lesion. Oral membranes dry and pink. No cervical lymph nodes. Thyroid non-tender, no masses, or enlargement. Carotids pulses 2+/4+ without bruits. No JVD with HOB at 30 degrees. Abdomen: active bowel sounds throughout, soft, nontender sitting upright. Extrem: no clubbing or cyanosis. Edema: doughy edema, non-pitting. No sensation in lower legs below knees. Extremities are warm and pink with prompt capillary refill. Pain with movement in shoulders, neck, standing in low back, hips and knees. No pain or swelling in finger joints, wrist, elbows, ankles, feet. No joint effusions noted. Has foot drop right with bracing. ASSESSMENT/PLAN: 1. Primary hypertension - ICD9: 401.9, ICD10: I10 (primary diagnosis) - Uncontrolled - Recommend home blood pressure monitoring, to bring results to next visit - Encouraged sodium restriction, DASH or Mediterranean diet - Recommend regular aerobic exercise - CBC + DIFF - COMP METABOLIC PANEL 2. MGUS (monoclonal gammopathy of unknown significance) - ICD9: 273.1, ICD10: D47.2 M-protein no longer detectable, continued IgM kappa monoclonal protein. 3. Neurogenic claudication - ICD9: 781.99, ICD10: R29.818 Having significant weakness following hip surgery, in chronic pain, unable to differentiate cause. - SED RATE WESTERGREN - C-REACTIVE PROTEIN (CRP) 4. S/P laminectomy - ICD9: V45.89, ICD10: Z98.890 - SED RATE WESTERGREN - C-REACTIVE PROTEIN (CRP) 5. Intractable low back pain - ICD9: 724.2, ICD10: M54.59 Was receiving oxycodone through [facility] under nurse practitioner oversight I explained oxycodone should not be sustained indefinitely, last rx was for 5 tabs. Will need to see pain management if needs to continue as has to be under oversight for recurrent schedule 2. Has been on tramadol in past successfully: will use a trial over next week. May add Tylenol or OTC NSAID in addition if neede. 6. Fecal smearing - ICD9: 787.62, ICD10: R15.1 persistent 7. Paresthesia of saddle area: Cauda equina ruled out - ICD9: 782.0, ICD10: R20.2 Persistent and worsening. Per Dr. Bhat feels this is not from MGUS but hx spine surgery and underlying arthritis/ stenosis 8. Hypogonadism in male - ICD9: 257.2, ICD10: E29.1 9. High serum follicle stimulating hormone (FSH) - ICD9: 790.99, ICD10: R79.89 10. Testicular atrophy - ICD9: 608.3, ICD10: N50.0 11. ED (erectile dysfunction) of organic origin - ICD9: 607.84, ICD10: N52.9 Following with endo 12. S/P total right hip arthroplasty - ICD9: V43.64, ICD10: Z96.641 Continued pain, out of post-op period. Can hardly walk - CONSULT TO PAIN MGT 13. Periprosthetic hip fracture, sequela - ICD9: 909.3, ICD10: M97.8XXS, Z96.649 - CONSULT TO PAIN MGT 14. Sleeping difficulty - ICD9: 780.50, ICD10: G47.9 refill - TRAZODONE 150 MG TABLET - TRAZODONE 150 MG TABLET 15. Post laminectomy syndrome - ICD9: 722.80, ICD10: M96.1 - SED RATE WESTERGREN - C-REACTIVE PROTEIN (CRP) - CONSULT TO PAIN MGT - TRAMADOL 50 MG TABLET 16. Polyarthropathy - ICD9: 716.50, ICD10: M13.0 - LYME AB LATE >30 DAYS SYMPTOMS - LAURO BY IFA SCREEN - TRAMADOL 50 MG TABLET 17. Dysuria - ICD9: 788.1, ICD10: R30.0 acute - UA positive for balbir esterase - Patient education for prevention given - URINALYSIS, WITH MICROSCOPIC - URINE CULTURE - UA DIP, URINE (POC) - MACRODANTIN 18. Pain syndrome, chronic - ICD9: 338.4, ICD10: G89.4 - CONSULT TO PAIN MGT - LYME AB LATE >30 DAYS SYMPTOMS - LAURO BY IFA SCREEN - TRAMADOL 50 MG TABLET - TOX SCREEN ROUT UR - PAIN PANEL, UR QUANT - TRAMADOL 50 MG TABLET - PAIN PANEL, UR QUANT - SPECIMEN VALIDITY, URINE 4 week follow up or sooner if needed Marbella Zaidi PA-C documented in this encounter [facility] 06-25-2023 Miscellaneous Notes Alicja at [facility] notified Duong Zaidi [place] with the below orders. Yes, Thanks, Duong Zaidi PA-C Alicja nurse from [facility] calling and states that pt will be discharged from [facility] tomorrow 06/25/23. Has his hospital f/u with Duong Zaidi on Wednesday06/28/23. Alicja will be asking Dr. Gudelia Samuel, pt's orthopedic doctor for ortho orders but will Duong follow pt for non ortho orders? Will be having nursing, PT and OT. Need order for start of care on 06/30/23. Okay to LM on Alicja's confidential VM. documented in this encounter [facility] 05-12-2023 History of Present illness Narrative Images from the original note were not included. ORTHOPAEDIC OFFICE NOTE CHIEF COMPLAINT: Follow-up revision right hip arthroplasty HISTORY OF PRESENT ILLNESS: Miroslava Peralta is a 72 year old male who presents for Evaluation of revision right hip arthroplasty. He originally underwent open reduction internal fixation of periprosthetic femur fracture. He subsequently had multiple episodes of instability requiring revision to a constrained liner on 04/02/2023. Overall he is actually doing well. He recently had COVID but in regards to the hip he is having minimal pain. He is able to ambulate with full weight using a walker for support. He states he is not needing much help with physical therapy. He is hoping to be discharged home soon. He is wearing his AFO for continued foot drop. Overall he seems to be having multiple spine related issues including bilateral hand and foot numbness that I think is likely the source for this foot drop. He denies current fevers chills nausea vomiting weight loss fatigue or malaise Reviewed nursing note and current pain scale. 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 Dysphagia, oral phase Hip arthritis History of transfusion HTN (hypertension) Insomnia, unspecified Leukocytosis 11/22/1986 [place] admission - thought leukemia and he refused tests Overflow incontinence of urine S/P hip replacement PAST SURGICAL HISTORY Procedure Laterality Date ARTHRP ACETBLR/PROX FEM PROSTC AGRFT/ALGRFT Right 07/25/2014 Hip replacement, total, right COLONOSCOPY 07/16/03 random biopsies negative COLONOSCOPY FLX DX W/COLLJ SPEC WHEN PFRMD 06/27/2013 Colonoscopy JOINT REPLACEMENT HX PAST SURGICAL HISTORY OF 1997 shoulder surgery bilateral PAST SURGICAL HISTORY OF 1997 tendon repair bilat elbows. SKIN BIOPSY HX FAMILY HISTORY Problem Relation Age of Onset Cancer Mother breast cancer Hypertension Mother None Father father in train accident at yuni age Hypertension Sister Social History Tobacco Use Smoking status: Former Packs/day: 2.00 Years: 23.00 Pack years: 46.00 Types: Cigarettes Quit date: 11/22/1992 Years since quittin.4 Smokeless tobacco: Never Vaping Use Vaping Use: Never used Substance Use Topics Alcohol use: Not Currently Comment: quit in 1991. Drug use: No Comment: Quit drugs in . MEDICATIONS: Current Outpatient Medications Medication Sig oxyCODONE IR (ROXICODONE) 5 mg immediate release tablet Take by mouth every 4 hours as needed for pain. buPROPion XL (WELLBUTRIN XL) 150 mg 24 hr tablet Take 150 mg by mouth once daily. naproxen (NAPROSYN) 500 mg tablet Take 500 mg by mouth twice daily with meals. ondansetron (ZOFRAN) 4 mg tablet Take by mouth every 8 hours as needed for nausea/vomiting. polyethylene glycol 3350 17 gram packet Take 17 g by mouth once daily. Dissolve dose in 4 - 8 ounces of liquid and take as directed. Melatonin 5 mg cap Take by mouth daily at bedtime. menthol/camphor (BIOFREEZE TOPICAL) Apply to affected area three times daily. Apply to posterior hand and right scapula for pain and order to apply every four hours as needed for pain not to exceed more than four total applications per day. tamsulosin (FLOMAX) 0.4 mg Take 1 capsule by mouth daily at bedtime. senna (SENOKOT) 8.6 mg tab Take 1 tablet by mouth twice daily as needed for constipation. gabapentin (NEURONTIN) 300 mg capsule Take 2 capsules by mouth three times daily for 90 days. acetaminophen (TYLENOL) 325 mg tablet Take 2 tablets by mouth every 6 hours as needed (mild pain or fever >100). (Patient taking differently: Take 650 mg by mouth every 6 hours as needed (mild pain or fever >100). 500 MG- two by mouth every eight hours as needed) amLODIPine (NORVASC) 10 mg tablet Take 1 tablet by mouth once daily. traZODone (DESYREL) 150 mg tablet Take 1 tablet by mouth daily at bedtime. lisinopril (ZESTRIL, PRINIVIL) 20 mg tablet Take 1 tablet by mouth once daily. No current facility-administered medications for this visit. ALLERGIES: ALLERGIES Allergen Reactions Cardizem [Diltiazem* Other: See Comments panic attack Diovan [Valsartan] GI Upset Caused nausea Hyzaar [Losartan-Hy* Other: See Comments Mood change Lopressor [Metoprol* Other: See Comments no energy, wiped pt out PHYSICAL EXAMINATION: Resp 16 Ht 5' 10.98 (1.80m) Wt 191 lb (86.6kg) BMI 26.65 kg/(m^2). General Appearance: Well appearing, alert, in no acute distress, well-hydrated, well nourished. Skin: Skin color, texture, turgor normal, no suspicious rashes or lesions. Psych: Patient is alert and oriented to person, time and place. Mood and affect are normal. Respiratory: Breathing is symmetric and unlabored Gait: Patient was examined in a wheelchair today. Extremities: Right lower extremity examined. Laterally based incision is well-healed without drainage or sign of infection. There is no focal tenderness or palpable mass. Gentle range of motion of the hip is relatively pain-free Lymphatic: There is no palpable lymphadenopathy Peripheral Pulses: Normal. Neurologic: Bilateral lower extremities were examined. There is decreased sensation bilaterally. This is his baseline IMAGES: Physician office building radiographs, 05/12/2023. AP view the pelvis as well as AP and lateral views of the right femur were obtained and reviewed. These demonstrate right total hip arthroplasty with longstem femoral component and fixation cables. Overall alignment is stable. There is no sign of loosening or failure of hardware. Constrained liner is in place and the hip is concentrically reduced. Soft tissues otherwise unremarkable. Plan ASSESSMENT AND PLAN: 1. Dislocation of hip joint prosthesis, subsequent encounter - ICD9: V58.89, ICD10: T84.029D, Z96.649 (primary diagnosis) 2. 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, subsequent encounter - ICD9: V54.29, ICD10: M97.8XXD, Z96.649 Functional Plan: Patient is a 72-year-old male presenting for postoperative evaluation following multiple hip surgeries and most recent lead revision for recurrent instability on 04/02/2023. He was revised to a constrained liner. Overall he is doing well. He reports he is having minimal pain. He is able to ambulate with the assistance of a walker and states that he is not having much difficulty. Radiographs today are stable. I discussed this with him at length. He can continue to be weightbearing as tolerated in the right lower extremity with posterior hip cautions. I will see him back in 8 weeks for repeat evaluation and radiographs less that should arise sooner. All of his questions were answered satisfactorily. He expressed understanding of and agreement with the treatment plan. Return in about 8 weeks (around 07/07/2023). Gudelia Samuel MD documented in this encounter [facility] 05-07-2023 History of Present illness Narrative Oncologic problem(s): 1) IgM MGUS. HPI: The patient is a 72-year-old male who has a past medical history significant for hepatitis C (treated with oral medication), shoulder replacement, hip replacement, chronic low back pain, remote alcoholism and hypertension. He described a several year history of pain in both legs associated with disequilibrium when walking. He did not have any focal motor weakness. A monofilament test suggested loss of sensation of some of the toes and portions of the soles of the feet. About 3 to 4 weeks prior to presentation here he was doing curls when he heard a popping sound in his left elbow. Had numbness in the ulnar distribution from elbow to hand. He described having pain all over his body. Presents for ongoing oncologic management. Interim history: Had laminectomy L3-5 03/20/2022. Required evacuation lumbar wound hematoma and durotomy repair 04/01/2022[facility] Had periprosthetic right hip fracture requiring open reduction and internal fixation 01/08/2023 and revision several days later. Several blood transfusions. Admitted 03/31/2023 for recurrent instability of right total hip arthroplasty. Underwent revision of total hip arthroplasty including both components on 04/02/2023. Reviewed discharge summaries. Current UTI--on Bactrim. Since I saw him last year he has had an MRI of the thoracic and lumbar spine. He also had an MRI of the cervical spine 08/2022. He endorses that he was advised to have cervical spine surgery but he declined at that time. He has degenerative disease causing radiculopathy. He has chronic pain in the legs as well as sensory neuropathy. Following his fall in December 2022, he has had pain and numbness down the right arm. He has developed foot drop of the right leg. Presents in wheelchair today. Still having a lot of pain in the legs. He is on oxycodone at the halfway. He has chronic constipation. Had an enema this morning. He is on Naprosyn twice a day. Not able to tell me if he has black or bloody stools since he does not look at the stool. Naprosyn causes abdominal pain if taken on an empty stomach. PMH, medications and allergies personally reviewed by me today. Any changes documented in appropriate section. PHYSICAL EXAM: Vitals: Blood pressure 81/50, pulse 83, temperature 36.2 C (97.1 F), weight 86.9 kg (191 lb 8 oz), SpO2 96 %. Thinner-appearing and in no acute distress. EYES: Sclerae are anicteric bilaterally. LYMPHATIC: There is no palpable cervical or supraclavicular adenopathy. RESPIRATORY: Inspiratory breath sounds are of normal intensity in all [place]. No rales, wheezes or rhonchi. CARDIOVASCULAR: Rhythm is regular. ABDOMEN: The abdomen is nondistended. No organomegaly. Mild generalized tenderness. Extremities: No swelling or edema. SKIN: No jaundice. LABS: Component Latest Ref Rng & Units 04/30/2023 WBC 3.70 - 11.00 k/uL 9.96 RBC 4.20 - 6.00 m/uL 3.53 (L) Hemoglobin 13.0 - 17.0 g/dL 9.8 (L) Hematocrit 39.0 - 51.0 % 30.0 (L) MCV 80.0 - 100.0 fL 85.0 MCH 26.0 - 34.0 pg 27.8 MCHC 30.5 - 36.0 g/dL 32.7 RDW-CV 11.5 - 15.0 % 17.2 (H) Platelet Count 150 - 400 k/uL 400 MPV 9.0 - 12.7 fL 8.2 (L) Neut% % 73.9 Abs Neut (ANC) 1.45 - 7.50 k/uL 7.35 Lymph% % 10.9 Abs Lymph 1.00 - 4.00 k/uL 1.09 Milam% % 8.4 Abs Milam <0.87 k/uL 0.84 Eosin% % 5.4 Abs Eosin <0.46 k/uL 0.54 (H) Baso% % 0.7 Abs Baso <0.11 k/uL 0.07 Immature Gran % % 0.7 IMMATURE GRANS (ABS) <0.10 k/uL 0.07 NRBC /100 WBC 0.0 Absolute nRBC <0.01 k/uL <0.01 DTYPE Auto Protein, Total 6.3 - 8.0 g/dL 7.5 Albumin 3.9 - 4.9 g/dL 3.4 (L) Calcium 8.5 - 10.2 mg/dL 9.3 Bilirubin, Total 0.2 - 1.3 mg/dL 0.3 Alkaline Phosphatase 38 - 113 U/L 74 AST 14 - 40 U/L 5 (L) ALT 10 - 54 U/L 6 (L) Glucose 74 - 99 mg/dL 133 (H) BUN 9 - 24 mg/dL 24 Creatinine 0.73 - 1.22 mg/dL 1.04 Sodium 136 - 144 mmol/L 131 (L) Potassium 3.7 - 5.1 mmol/L 4.9 Chloride 97 - 105 mmol/L 97 CO2 22 - 30 mmol/L 24 Anion Gap 9 - 18 mmol/L 10 eGFR >=60 mL/min/1.73m 76 LD 135 - 225 U/L 115 (L) B2 Microglobulin <3.1 mg/L 4.1 (H) Component Latest Ref Rng & Units 05/05/2022 04/30/2023 Albumin 3.43 - 5.41 g/dL 4.07 2.67 (L) Alpha 1 Globulin 0.18 - 0.43 g/dL 0.20 0.62 (H) Alpha 2 Globulin 0.42 - 0.98 g/dL 0.63 1.33 (H) Beta Globulin 0.61 - 1.17 g/dL 0.78 (L) 0.85 Gamma Globulin 0.53 - 1.51 g/dL 1.01 1.63 (H) Interpretation (Prot Electro) No definitive M protein is identified on protein electrophoresis. An M protein is identified on protein electrophoresis. (A) An atypical region of restricted mobility is identified on protein electrophoresis. (A) Interpretation Comment for Protein Electrophoresis See separate immunofixation report for characterization of monoclonal gammopathy. The atypical region is relatively poorly defined and may represent an unusual presentation of polyclonal immunoglobulins, but cannot rule out the presence of a low level M protein. If clinically indicated, monoclonal protein analysis and serum free light chain analysis are suggested to evaluate further for monoclonal gammopathy. M-Protein Location Gamma Fraction 1 M-Protein Concentration <=0.00 g/dL 0.17 (H) 0.00 SPE Staff Review Reviewed by To Meeks MD, Ph.D ([id number]) Reviewed by Mone Li MD Component Latest Ref Rng & Units 04/11/2021 MAG Ab IgM, GAETANO 0 - 999 TU 0 SGPG Antibody, IgM 0.00 - 0.99 IV 0.28 IMAGING: Pending. PATHOLOGY: Bone marrow biopsy 04/23/2021: BONE MARROW, ASPIRATE SMEAR AND CORE BIOPSY, WITH CLOT SECTION AND PERIPHERAL BLOOD (A-C): - BONE MARROW INVOLVEMENT BY PLASMA CELL NEOPLASM WITH 7% PLASMA CELLS. - NORMOCELLULAR BONE MARROW WITH TRILINEAGE HEMATOPOIESIS. - DECREASED STAINABLE IRON. - SEE COMMENT. Comment: The patient has a history of an IgM kappa monoclonal protein. The bone marrow shows increased plasma cells with 7% noted in the aspirate smear, and these show monotypic kappa light chains by flow cytometry. A clonal B-cell process is not identified. Final classification of plasma cell neoplasms requires correlation with additional clinical, laboratory, and/or radiographic findings. 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 Lymphoid infiltrate: Distinct lymphoid aggregates are not identified. Immunohistochemical stains demonstrate few scattered CD3 positive small lymphocytes and rare scattered CD20 positive small lymphocytes. A CD138 stain shows positive plasma cells that represent 5-10% of the total cellularity. Mize and lambda stains are difficult to interpret as each shows marked background staining, but at least focal areas appear to show an excess of kappa light chain staining. 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 He was found to have a low level monoclonal protein on a serum electrophoresis ordered when he was noted to have some sensory deficits on monofilament testing. -Monoclonal protein not detectable on electrophoresis now. Immunofixation still identifies IgM kappa monoclonal protein. 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 -Multiple surgeries for right hip prosthesis. -Anemia that required transfusion in December 2022. -Remains anemic albeit better than recent hospitalization. -He is hypotensive today but not having symptoms of orthostasis. -Discussed working up anemia. He would prefer to have lab work done at the [facility] next week because he is uncomfortable and like to go home. Plan: -Check CBC, iron studies and reticulocyte count. Portions of this documentation were copied and pasted from previous office visit notes in order to provide a cohesive continuity of the history. The note has been reviewed and edited and updated as necessary. I spent a total of 30 minutes on the date of the service which included preparing to see the patient, [id number] patient care, completing clinical documentation, obtaining and/or reviewing separately obtained history, performing a medically appropriate examination, counseling and educating the patient/family/caregiver, ordering medications, tests, or procedures, communicating with other HCPs (not separately reported), and communicating results to the patient/family/caregiver. Sanjay Bhat DO documented in this encounter [facility] 04-28-2023 Miscellaneous Notes Lab orders faxed. Massiel Welch LPN Please file orders to be faxed to [facility]. Massiel Welch LPN Will wait until 05/03 to fax orders. Yari Ellis LPN [facility] called regarding lab appt on 04/30. She asks that orders be faxed to [facility] and they can complete them there. Please fax to [phone] documented in this encounter [facility] 03-31-2023 History of Past i llness Narrative Problem Noted Date Resolved Date Mechanical complication of p rosthetic hip implant, initial encounter 03/31/2023 04/05/2023 Incontinence of urine 11/14/2022 11/16/2022 Generalized abdominal pain 11/12/202211/16 Numbness and tingling of foot 07/20/2021 Overview: 07/18/21 EMG/NCS 1. 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 These changes are most severe in degree at the S1 root level where there is moderate active motor axon loss change above and below the knee. At L5 these changes are moderate in degree and active change is only seen below the knee. At L3/4 these changes are moderate to severe in degree but without any evidence of active/ongoing motor fiber loss. Screening studies in the right lower limb show similar, but slightly less significant, active on chronic changes at L5/S1 and moderate chronic (noactive) motor axon loss changes at L3/4 suggesting this is a bilateral process and/or related to significant central canal stenosis. 2. 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 Due to overlapping electrodiagnostic features with #1, precise severity is difficult to determine electrodiagnostically. 04/23/21 bone marrow: does not suggest lymphoplasmacytic lymphoma. 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 04/01/[address] Bhat. ESR 29, CK 554 (weight shirt trimmer). Neg: Lead, B2 microglubulin, B12, CMP, CBC/dif. UPEP+ monoclonal protein 24h w/M spine c/ interp 03/11/21 SPEP + m-protein, K/L ratio 1.17, UPEP negative Bilateral hand, foot and ankle numbness Chronic bilateral low back pain without sciatica 12/18/2020 03/22/2022 Primary localized osteoarthrosis of shoulder reg ion 12/12/2014 03/22/2022 Shoulder pain, right 09/04/2014 03/22/2022 Impaired fasting blood sugar 10/02/201011/2021 Anxiety 09/29/2010 03/22/2022 Diarrhea 07/31/2010 11/16/2022 documented as of this encounter (statuses as of 04/29/2023) [facility] History of Past illness Narrative* Problem Noted Date Resolved Date Mechanical complication of p rosthetic hip implant, initial encounter 03/31/2023 04/05/2023 Incontinence of urine 11/14/2022 11/16/2022 Generalized abdominal pain 11/12/202211/16 Numbness and tingling of foot 07/20/2021 Overview: 07/18/21 EMG/NCS 1. 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 These changes are most severe in degree at the S1 root level where there is moderate active motor axon loss change above and below the knee. At L5 these changes are moderate in degree and active change is only seen below the knee. At L3/4 these changes are moderate to severe in degree but without any evidence of active/ongoing motor fiber loss. Screening studies in the right lower limb show similar, but slightly less significant, active on chronic changes at L5/S1 and moderate chronic (noactive) motor axon loss changes at L3/4 suggesting this is a bilateral process and/or related to significant central canal stenosis. 2. 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 Due to overlapping electrodiagnostic features with #1, precise severity is difficult to determine electrodiagnostically. 04/23/21 bone marrow: does not suggest lymphoplasmacytic lymphoma. 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 04/01/[address] Bhat. ESR 29, CK 554 (weight shirt trimmer). Neg: Lead, B2 microglubulin, B12, CMP, CBC/dif. UPEP+ monoclonal protein 24h w/M spine c/ interp 03/11/21 SPEP + m-protein, K/L ratio 1.17, UPEP negative Bilateral hand, foot and ankle numbness Chronic bilateral low back pain without sciatica 12/18/2020 03/22/2022 Primary localized osteoarthrosis of shoulder reg ion 12/12/2014 03/22/2022 Shoulder pain, right 09/04/2014 03/22/2022 Impaired fasting blood sugar 10/02/201011/2021 Anxiety 09/29/2010 03/22/2022 Diarrhea 07/31/2010 11/16/2022 documented as of this encounter (statuses as of 05/07/2023) [facility] History of Past illness Narrative* Problem Noted Date Resolved Date Mechanical complication of p rosthetic hip implant, initial encounter 03/31/2023 04/05/2023 Incontinence of urine 11/14/2022 11/16/2022 Generalized abdominal pain 11/12/202211/16 Numbness and tingling of foot 07/20/2021 Overview: 07/18/21 EMG/NCS 1. 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 These changes are most severe in degree at the S1 root level where there is moderate active motor axon loss change above and below the knee. At L5 these changes are moderate in degree and active change is only seen below the knee. At L3/4 these changes are moderate to severe in degree but without any evidence of active/ongoing motor fiber loss. Screening studies in the right lower limb show similar, but slightly less significant, active on chronic changes at L5/S1 and moderate chronic (noactive) motor axon loss changes at L3/4 suggesting this is a bilateral process and/or related to significant central canal stenosis. 2. 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 Due to overlapping electrodiagnostic features with #1, precise severity is difficult to determine electrodiagnostically. 04/23/21 bone marrow: does not suggest lymphoplasmacytic lymphoma. 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 04/01/[address] Bhat. ESR 29, CK 554 (weight shirt trimmer). Neg: Lead, B2 microglubulin, B12, CMP, CBC/dif. UPEP+ monoclonal protein 24h w/M spine c/ interp 03/11/21 SPEP + m-protein, K/L ratio 1.17, UPEP negative Bilateral hand, foot and ankle numbness Chronic bilateral low back pain without sciatica 12/18/2020 03/22/2022 Primary localized osteoarthrosis of shoulder reg ion 12/12/2014 03/22/2022 Shoulder pain, right 09/04/2014 03/22/2022 Impaired fasting blood sugar 10/02/201011/2021 Anxiety 09/29/2010 03/22/2022 Diarrhea 07/31/2010 11/16/2022 documented as of this encounter (statuses as of 05/12/2023) [facility] History of Past illness Narrative* Problem Noted Date Diagnosed Date Resolved Date Mechanical complication of p rosthetic hip implant, initial encounter 03/31/2023 04/05/2023 Incontinence of urine 11/14/20222021 Generalized abdominal pain 11/12/2022 1 01/17/2022 Numbness and tingling of foot 07/20/2021 03/22/2022 Overview: 07/18/21 EMG/NCS 1. 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 These changes are most severe in degree at the S1 root level where there is moderate active motor axon loss change above and below the knee. At L5 these changes are moderate in degree and active change is only seen below the knee. At L3/4 these changes are moderate to severe in degree but without any evidence of active/ongoing motor fiber loss. Screening studies in the right lower limb show similar, but slightly less significant, active on chronic changes at L5/S1 and moderate chronic (noactive) motor axon loss changes at L3/4 suggesting this is a bilateral process and/or related to significant central canal stenosis. 2. 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 Due to overlapping electrodiagnostic features with #1, precise severity is difficult to determine electrodiagnostically. 04/23/21 bone marrow: does not suggest lymphoplasmacytic lymphoma. 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 04/01/[address] Bhat. ESR 29, CK 554 (weight shirt trimmer). Neg: Lead, B2 microglubulin, B12, CMP, CBC/dif. UPEP+ monoclonal protein 24h w/M spine c/ interp 03/11/21 SPEP + m-protein, K/L ratio 1.17, UPEP negative Bilateral hand, foot and ankle numbness Chronic bilateral low back p ain without sciatica 12/18/2020 03/22/2022 Primary localized osteoarthr osis of shoulder region 12/12/2014 03/22/2022 Shoulder pain, right 09/04/2014 022 Impaired fasting blood sugar 10/02/2010 03/22/2022 Anxiety 09/29/2010 03/22/2022 Diarrhea 07/31/2010 11/16/2022 documented as of this encounter (statuses as of 06/25/2023) [facility] History of Past illness Narrative* Problem Noted Date Diagnosed Date Resolved Date Mechanical complication of p rosthetic hip implant, initial encounter 03/31/2023 04/05/2023 Incontinence of urine 11/14/20222021 Generalized abdominal pain 11/12/2022 1 01/17/2022 Numbness and tingling of foot 07/20/2021 03/22/2022 Overview: 07/18/21 EMG/NCS 1. 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 These changes are most severe in degree at the S1 root level where there is moderate active motor axon loss change above and below the knee. At L5 these changes are moderate in degree and active change is only seen below the knee. At L3/4 these changes are moderate to severe in degree but without any evidence of active/ongoing motor fiber loss. Screening studies in the right lower limb show similar, but slightly less significant, active on chronic changes at L5/S1 and moderate chronic (noactive) motor axon loss changes at L3/4 suggesting this is a bilateral process and/or related to significant central canal stenosis. 2. 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 Due to overlapping electrodiagnostic features with #1, precise severity is difficult to determine electrodiagnostically. 04/23/21 bone marrow: does not suggest lymphoplasmacytic lymphoma. 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 04/01/[address] Bhat. ESR 29, CK 554 (weight shirt trimmer). Neg: Lead, B2 microglubulin, B12, CMP, CBC/dif. UPEP+ monoclonal protein 24h w/M spine c/ interp 03/11/21 SPEP + m-protein, K/L ratio 1.17, UPEP negative Bilateral hand, foot and ankle numbness Chronic bilateral low back p ain without sciatica 12/18/2020 03/22/2022 Chronic hepatitis C without hepatic coma 01/05/2019 06/29/2023 Overview: 10/10/2021 Hep C not detectable 06/16/[address] Augustine. Completed treatment. Last Assessment & Plan: Assessment: tx by Dr. Augustine, completed tx 05/2019 Albumin (g/dL) Date Value 11/04/2021 4.3 Bilirubin, Total (mg/dL) Date Value 11/04/2021 0.4 Bilirubin, Conjug (mg/dL) Date Value 09/30/2021 <0.2 Alkaline Phosphatase (U/L) Date Value 11/04/2021 53 AST (U/L) Date Value 11/04/2021 19 ALT (U/L) Date Value 11/04/2021 15 Protein, Total (g/dL) Date Value 11/04/2021 6.7 11/04/2021 7.0 Primary localized osteoarthr osis of shoulder region 12/12/2014 03/22/2022 Shoulder pain, right 09/04/2014 022 Impaired fasting blood sugar 10/02/2010 03/22/2022 Anxiety 09/29/2010 03/22/2022 Diarrhea 07/31/2010 11/16/2022 documented as of this encounter (statuses as of 06/30/2023) [facility] History of Past illness Narrative* Problem Noted Date Diagnosed Date Resolved Date Mechanical complication of p rosthetic hip implant, initial encounter 03/31/2023 04/05/2023 Incontinence of urine 11/14/20222021 Generalized abdominal pain 11/12/2022 1 01/17/2022 Numbness and tingling of foot 07/20/2021 03/22/2022 Overview: 07/18/21 EMG/NCS 1. 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 These changes are most severe in degree at the S1 root level where there is moderate active motor axon loss change above and below the knee. At L5 these changes are moderate in degree and active change is only seen below the knee. At L3/4 these changes are moderate to severe in degree but without any evidence of active/ongoing motor fiber loss. Screening studies in the right lower limb show similar, but slightly less significant, active on chronic changes at L5/S1 and moderate chronic (noactive) motor axon loss changes at L3/4 suggesting this is a bilateral process and/or related to significant central canal stenosis. 2. 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 Due to overlapping electrodiagnostic features with #1, precise severity is difficult to determine electrodiagnostically. 04/23/21 bone marrow: does not suggest lymphoplasmacytic lymphoma. 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 04/01/[address] Bhat. ESR 29, CK 554 (weight shirt trimmer). Neg: Lead, B2 microglubulin, B12, CMP, CBC/dif. UPEP+ monoclonal protein 24h w/M spine c/ interp 03/11/21 SPEP + m-protein, K/L ratio 1.17, UPEP negative Bilateral hand, foot and ankle numbness Chronic bilateral low back p ain without sciatica 12/18/2020 03/22/2022 Chronic hepatitis C without hepatic coma 01/05/2019 06/29/2023 Overview: 10/10/2021 Hep C not detectable 06/16/[address] Augustine. Completed treatment. Last Assessment & Plan: Assessment: tx by Dr. Augustine, completed tx 05/2019 Albumin (g/dL) Date Value 11/04/2021 4.3 Bilirubin, Total (mg/dL) Date Value 11/04/2021 0.4 Bilirubin, Conjug (mg/dL) Date Value 09/30/2021 <0.2 Alkaline Phosphatase (U/L) Date Value 11/04/2021 53 AST (U/L) Date Value 11/04/2021 19 ALT (U/L) Date Value 11/04/2021 15 Protein, Total (g/dL) Date Value 11/04/2021 6.7 11/04/2021 7.0 Primary localized osteoarthr osis of shoulder region 12/12/2014 03/22/2022 Shoulder pain, right 09/04/2014 022 Impaired fasting blood sugar 10/02/2010 03/22/2022 Anxiety 09/29/2010 03/22/2022 Diarrhea 07/31/2010 11/16/2022 documented as of this encounter (statuses as of 07/01/2023) [facility] History of Past illness Narrative* Problem Noted Date Diagnosed Date Resolved Date Mechanical complication of p rosthetic hip implant, initial encounter 03/31/2023 04/05/2023 Incontinence of urine 11/14/20222021 Generalized abdominal pain 11/12/2022 1 01/17/2022 Numbness and tingling of foot 07/20/2021 03/22/2022 Overview: 07/18/21 EMG/NCS 1. 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 These changes are most severe in degree at the S1 root level where there is moderate active motor axon loss change above and below the knee. At L5 these changes are moderate in degree and active change is only seen below the knee. At L3/4 these changes are moderate to severe in degree but without any evidence of active/ongoing motor fiber loss. Screening studies in the right lower limb show similar, but slightly less significant, active on chronic changes at L5/S1 and moderate chronic (noactive) motor axon loss changes at L3/4 suggesting this is a bilateral process and/or related to significant central canal stenosis. 2. 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 Due to overlapping electrodiagnostic features with #1, precise severity is difficult to determine electrodiagnostically. 04/23/21 bone marrow: does not suggest lymphoplasmacytic lymphoma. 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 04/01/[address] Bhat. ESR 29, CK 554 (weight shirt trimmer). Neg: Lead, B2 microglubulin, B12, CMP, CBC/dif. UPEP+ monoclonal protein 24h w/M spine c/ interp 03/11/21 SPEP + m-protein, K/L ratio 1.17, UPEP negative Bilateral hand, foot and ankle numbness Chronic bilateral low back p ain without sciatica 12/18/2020 03/22/2022 Chronic hepatitis C without hepatic coma 01/05/2019 06/29/2023 Overview: 10/10/2021 Hep C not detectable 06/16/[address] Augustine. Completed treatment. Last Assessment & Plan: Assessment: tx by Dr. Augustine, completed tx 05/2019 Albumin (g/dL) Date Value 11/04/2021 4.3 Bilirubin, Total (mg/dL) Date Value 11/04/2021 0.4 Bilirubin, Conjug (mg/dL) Date Value 09/30/2021 <0.2 Alkaline Phosphatase (U/L) Date Value 11/04/2021 53 AST (U/L) Date Value 11/04/2021 19 ALT (U/L) Date Value 11/04/2021 15 Protein, Total (g/dL) Date Value 11/04/2021 6.7 11/04/2021 7.0 Primary localized osteoarthr osis of shoulder region 12/12/2014 03/22/2022 Shoulder pain, right 09/04/2014 022 Impaired fasting blood sugar 10/02/2010 03/22/2022 Anxiety 09/29/2010 03/22/2022 Diarrhea 07/31/2010 11/16/2022 documented as of this encounter (statuses as of 07/02/2023) [facility] History of Past illness Narrative* Problem Noted Date Diagnosed Date Resolved Date Mechanical complication of p rosthetic hip implant, initial encounter 03/31/2023 04/05/2023 Incontinence of urine 11/14/20222021 Generalized abdominal pain 11/12/2022 1 01/17/2022 Numbness and tingling of foot 07/20/2021 03/22/2022 Overview: 07/18/21 EMG/NCS 1. 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 These changes are most severe in degree at the S1 root level where there is moderate active motor axon loss change above and below the knee. At L5 these changes are moderate in degree and active change is only seen below the knee. At L3/4 these changes are moderate to severe in degree but without any evidence of active/ongoing motor fiber loss. Screening studies in the right lower limb show similar, but slightly less significant, active on chronic changes at L5/S1 and moderate chronic (noactive) motor axon loss changes at L3/4 suggesting this is a bilateral process and/or related to significant central canal stenosis. 2. 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 Due to overlapping electrodiagnostic features with #1, precise severity is difficult to determine electrodiagnostically. 04/23/21 bone marrow: does not suggest lymphoplasmacytic lymphoma. 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 04/01/[address] Bhat. ESR 29, CK 554 (weight shirt trimmer). Neg: Lead, B2 microglubulin, B12, CMP, CBC/dif. UPEP+ monoclonal protein 24h w/M spine c/ interp 03/11/21 SPEP + m-protein, K/L ratio 1.17, UPEP negative Bilateral hand, foot and ankle numbness Chronic bilateral low back p ain without sciatica 12/18/2020 03/22/2022 Chronic hepatitis C without hepatic coma 01/05/2019 06/29/2023 Overview: 10/10/2021 Hep C not detectable 06/16/[address] Augustine. Completed treatment. Last Assessment & Plan: Assessment: tx by Dr. Augustine, completed tx 05/2019 Albumin (g/dL) Date Value 11/04/2021 4.3 Bilirubin, Total (mg/dL) Date Value 11/04/2021 0.4 Bilirubin, Conjug (mg/dL) Date Value 09/30/2021 <0.2 Alkaline Phosphatase (U/L) Date Value 11/04/2021 53 AST (U/L) Date Value 11/04/2021 19 ALT (U/L) Date Value 11/04/2021 15 Protein, Total (g/dL) Date Value 11/04/2021 6.7 11/04/2021 7.0 Primary localized osteoarthr osis of shoulder region 12/12/2014 03/22/2022 Shoulder pain, right 09/04/2014 022 Impaired fasting blood sugar 10/02/2010 03/22/2022 Anxiety 09/29/2010 03/22/2022 Diarrhea 07/31/2010 11/16/2022 documented as of this encounter (statuses as of 07/02/2023) [facility]05-10-2023 History of Past illness Narrative* Problem Noted Date Diagnosed Date Resolved Date Mechanical complication of p rosthetic hip implant, initial encounter 03/31/2023 04/05/2023 Incontinence of urine 11/14/20222021 Generalized abdominal pain 11/12/2022 1 01/17/2022 Numbness and tingling of foot 07/20/2021 03/22/2022 Overview: 07/18/21 EMG/NCS 1. 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 These changes are most severe in degree at the S1 root level where there is moderate active motor axon loss change above and below the knee. At L5 these changes are moderate in degree and active change is only seen below the knee. At L3/4 these changes are moderate to severe in degree but without any evidence of active/ongoing motor fiber loss. Screening studies in the right lower limb show similar, but slightly less significant, active on chronic changes at L5/S1 and moderate chronic (noactive) motor axon loss changes at L3/4 suggesting this is a bilateral process and/or related to significant central canal stenosis. 2. 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 Due to overlapping electrodiagnostic features with #1, precise severity is difficult to determine electrodiagnostically. 04/23/21 bone marrow: does not suggest lymphoplasmacytic lymphoma. 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 04/01/[address] Bhat. ESR 29, CK 554 (weight shirt trimmer). Neg: Lead, B2 microglubulin, B12, CMP, CBC/dif. UPEP+ monoclonal protein 24h w/M spine c/ interp 03/11/21 SPEP + m-protein, K/L ratio 1.17, UPEP negative Bilateral hand, foot and ankle numbness Chronic bilateral low back p ain without sciatica 12/18/2020 03/22/2022 Chronic hepatitis C without hepatic coma 01/05/2019 06/29/2023 Overview: 10/10/2021 Hep C not detectable 06/16/[address] Augustine. Completed treatment. Last Assessment & Plan: Assessment: tx by Dr. Augustine, completed tx 05/2019 Albumin (g/dL) Date Value 11/04/2021 4.3 Bilirubin, Total (mg/dL) Date Value 11/04/2021 0.4 Bilirubin, Conjug (mg/dL) Date Value 09/30/2021 <0.2 Alkaline Phosphatase (U/L) Date Value 11/04/2021 53 AST (U/L) Date Value 11/04/2021 19 ALT (U/L) Date Value 11/04/2021 15 Protein, Total (g/dL) Date Value 11/04/2021 6.7 11/04/2021 7.0 Primary localized osteoarthr osis of shoulder region 12/12/2014 03/22/2022 Shoulder pain, right 09/04/2014 022 Impaired fasting blood sugar 10/02/2010 03/22/2022 Anxiety 09/29/2010 03/22/2022 Diarrhea 07/31/2010 11/16/2022 documented as of this encounter (statuses as of 07/03/2023) [facility]05-10-2023 History of Past illness Narrative* Problem Noted Date Diagnosed Date Resolved Date Mechanical complication of p rosthetic hip implant, initial encounter 03/31/2023 04/05/2023 Incontinence of urine 11/14/20222021 Generalized abdominal pain 11/12/2022 1 01/17/2022 Numbness and tingling of foot 07/20/2021 03/22/2022 Overview: 07/18/21 EMG/NCS 1. 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 These changes are most severe in degree at the S1 root level where there is moderate active motor axon loss change above and below the knee. At L5 these changes are moderate in degree and active change is only seen below the knee. At L3/4 these changes are moderate to severe in degree but without any evidence of active/ongoing motor fiber loss. Screening studies in the right lower limb show similar, but slightly less significant, active on chronic changes at L5/S1 and moderate chronic (noactive) motor axon loss changes at L3/4 suggesting this is a bilateral process and/or related to significant central canal stenosis. 2. 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 Due to overlapping electrodiagnostic features with #1, precise severity is difficult to determine electrodiagnostically. 04/23/21 bone marrow: does not suggest lymphoplasmacytic lymphoma. 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 04/01/[address] Bhat. ESR 29, CK 554 (weight shirt trimmer). Neg: Lead, B2 microglubulin, B12, CMP, CBC/dif. UPEP+ monoclonal protein 24h w/M spine c/ interp 03/11/21 SPEP + m-protein, K/L ratio 1.17, UPEP negative Bilateral hand, foot and ankle numbness Chronic bilateral low back p ain without sciatica 12/18/2020 03/22/2022 Chronic hepatitis C without hepatic coma 01/05/2019 06/29/2023 Overview: 10/10/2021 Hep C not detectable 06/16/[address] Augustine. Completed treatment. Last Assessment & Plan: Assessment: tx by Dr. Augustine, completed tx 05/2019 Albumin (g/dL) Date Value 11/04/2021 4.3 Bilirubin, Total (mg/dL) Date Value 11/04/2021 0.4 Bilirubin, Conjug (mg/dL) Date Value 09/30/2021 <0.2 Alkaline Phosphatase (U/L) Date Value 11/04/2021 53 AST (U/L) Date Value 11/04/2021 19 ALT (U/L) Date Value 11/04/2021 15 Protein, Total (g/dL) Date Value 11/04/2021 6.7 11/04/2021 7.0 Primary localized osteoarthr osis of shoulder region 12/12/2014 03/22/2022 Shoulder pain, right 09/04/2014 022 Impaired fasting blood sugar 10/02/2010 03/22/2022 Anxiety 09/29/2010 03/22/2022 Diarrhea 07/31/2010 11/16/2022 documented as of this encounter (statuses as of 07/06/2023) [facility]05-10-2023 History of Past illness Narrative* Problem Noted Date Diagnosed Date Resolved Date Mechanical complication of p rosthetic hip implant, initial encounter 03/31/2023 04/05/2023 Incontinence of urine 11/14/20222021 Generalized abdominal pain 11/12/2022 1 01/17/2022 Numbness and tingling of foot 07/20/2021 03/22/2022 Overview: 07/18/21 EMG/NCS 1. 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 These changes are most severe in degree at the S1 root level where there is moderate active motor axon loss change above and below the knee. At L5 these changes are moderate in degree and active change is only seen below the knee. At L3/4 these changes are moderate to severe in degree but without any evidence of active/ongoing motor fiber loss. Screening studies in the right lower limb show similar, but slightly less significant, active on chronic changes at L5/S1 and moderate chronic (noactive) motor axon loss changes at L3/4 suggesting this is a bilateral process and/or related to significant central canal stenosis. 2. 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 Due to overlapping electrodiagnostic features with #1, precise severity is difficult to determine electrodiagnostically. 04/23/21 bone marrow: does not suggest lymphoplasmacytic lymphoma. 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 04/01/[address] Bhat. ESR 29, CK 554 (weight shirt trimmer). Neg: Lead, B2 microglubulin, B12, CMP, CBC/dif. UPEP+ monoclonal protein 24h w/M spine c/ interp 03/11/21 SPEP + m-protein, K/L ratio 1.17, UPEP negative Bilateral hand, foot and ankle numbness Chronic bilateral low back p ain without sciatica 12/18/2020 03/22/2022 Chronic hepatitis C without hepatic coma 01/05/2019 06/29/2023 Overview: 10/10/2021 Hep C not detectable 06/16/[address] Augustine. Completed treatment. Last Assessment & Plan: Assessment: tx by Dr. Augustine, completed tx 05/2019 Albumin (g/dL) Date Value 11/04/2021 4.3 Bilirubin, Total (mg/dL) Date Value 11/04/2021 0.4 Bilirubin, Conjug (mg/dL) Date Value 09/30/2021 <0.2 Alkaline Phosphatase (U/L) Date Value 11/04/2021 53 AST (U/L) Date Value 11/04/2021 19 ALT (U/L) Date Value 11/04/2021 15 Protein, Total (g/dL) Date Value 11/04/2021 6.7 11/04/2021 7.0 Primary localized osteoarthr osis of shoulder region 12/12/2014 03/22/2022 Shoulder pain, right 09/04/2014 022 Impaired fasting blood sugar 10/02/2010 03/22/2022 Anxiety 09/29/2010 03/22/2022 Diarrhea 07/31/2010 11/16/2022 documented as of this encounter (statuses as of 07/09/2023) [facility]05-10-2023 History of Past illness Narrative* Problem Noted Date Diagnosed Date Resolved Date Mechanical complication of p rosthetic hip implant, initial encounter 03/31/2023 04/05/2023 Incontinence of urine 11/14/20222021 Generalized abdominal pain 11/12/2022 1 01/17/2022 Numbness and tingling of foot 07/20/2021 03/22/2022 Overview: 07/18/21 EMG/NCS 1. 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 These changes are most severe in degree at the S1 root level where there is moderate active motor axon loss change above and below the knee. At L5 these changes are moderate in degree and active change is only seen below the knee. At L3/4 these changes are moderate to severe in degree but without any evidence of active/ongoing motor fiber loss. Screening studies in the right lower limb show similar, but slightly less significant, active on chronic changes at L5/S1 and moderate chronic (noactive) motor axon loss changes at L3/4 suggesting this is a bilateral process and/or related to significant central canal stenosis. 2. 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 Due to overlapping electrodiagnostic features with #1, precise severity is difficult to determine electrodiagnostically. 04/23/21 bone marrow: does not suggest lymphoplasmacytic lymphoma. 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 04/01/[address] Bhat. ESR 29, CK 554 (weight shirt trimmer). Neg: Lead, B2 microglubulin, B12, CMP, CBC/dif. UPEP+ monoclonal protein 24h w/M spine c/ interp 03/11/21 SPEP + m-protein, K/L ratio 1.17, UPEP negative Bilateral hand, foot and ankle numbness Chronic bilateral low back p ain without sciatica 12/18/2020 03/22/2022 Chronic hepatitis C without hepatic coma 01/05/2019 06/29/2023 Overview: 10/10/2021 Hep C not detectable 06/16/[address] Augustine. Completed treatment. Last Assessment & Plan: Assessment: tx by Dr. Augustine, completed tx 05/2019 Albumin (g/dL) Date Value 11/04/2021 4.3 Bilirubin, Total (mg/dL) Date Value 11/04/2021 0.4 Bilirubin, Conjug (mg/dL) Date Value 09/30/2021 <0.2 Alkaline Phosphatase (U/L) Date Value 11/04/2021 53 AST (U/L) Date Value 11/04/2021 19 ALT (U/L) Date Value 11/04/2021 15 Protein, Total (g/dL) Date Value 11/04/2021 6.7 11/04/2021 7.0 Primary localized osteoarthr osis of shoulder region 12/12/2014 03/22/2022 Shoulder pain, right 09/04/2014 022 Impaired fasting blood sugar 10/02/2010 03/22/2022 Anxiety 09/29/2010 03/22/2022 Diarrhea 07/31/2010 11/16/2022 documented as of this encounter (statuses as of 07/09/2023) [facility]05-10-2023 History of Past illness Narrative* Problem Noted Date Diagnosed Date Resolved Date Mechanical complication of p rosthetic hip implant, initial encounter 03/31/2023 04/05/2023 Incontinence of urine 11/14/20222021 Generalized abdominal pain 11/12/2022 1 01/17/2022 Numbness and tingling of foot 07/20/2021 03/22/2022 Overview: 07/18/21 EMG/NCS 1. 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 These changes are most severe in degree at the S1 root level where there is moderate active motor axon loss change above and below the knee. At L5 these changes are moderate in degree and active change is only seen below the knee. At L3/4 these changes are moderate to severe in degree but without any evidence of active/ongoing motor fiber loss. Screening studies in the right lower limb show similar, but slightly less significant, active on chronic changes at L5/S1 and moderate chronic (noactive) motor axon loss changes at L3/4 suggesting this is a bilateral process and/or related to significant central canal stenosis. 2. 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 Due to overlapping electrodiagnostic features with #1, precise severity is difficult to determine electrodiagnostically. 04/23/21 bone marrow: does not suggest lymphoplasmacytic lymphoma. 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 04/01/[address] Bhat. ESR 29, CK 554 (weight shirt trimmer). Neg: Lead, B2 microglubulin, B12, CMP, CBC/dif. UPEP+ monoclonal protein 24h w/M spine c/ interp 03/11/21 SPEP + m-protein, K/L ratio 1.17, UPEP negative Bilateral hand, foot and ankle numbness Chronic bilateral low back p ain without sciatica 12/18/2020 03/22/2022 Chronic hepatitis C without hepatic coma 01/05/2019 06/29/2023 Overview: 10/10/2021 Hep C not detectable 06/16/[address] Augustine. Completed treatment. Last Assessment & Plan: Assessment: tx by Dr. Augustine, completed tx 05/2019 Albumin (g/dL) Date Value 11/04/2021 4.3 Bilirubin, Total (mg/dL) Date Value 11/04/2021 0.4 Bilirubin, Conjug (mg/dL) Date Value 09/30/2021 <0.2 Alkaline Phosphatase (U/L) Date Value 11/04/2021 53 AST (U/L) Date Value 11/04/2021 19 ALT (U/L) Date Value 11/04/2021 15 Protein, Total (g/dL) Date Value 11/04/2021 6.7 11/04/2021 7.0 Primary localized osteoarthr osis of shoulder region 12/12/2014 03/22/2022 Shoulder pain, right 09/04/2014 022 Impaired fasting blood sugar 10/02/2010 03/22/2022 Anxiety 09/29/2010 03/22/2022 Diarrhea 07/31/2010 11/16/2022 documented as of this encounter (statuses as of 07/13/2023) [facility]-10[facility]2023 History of Past illness Narrative* Problem Noted Date Diagnosed Date Resolved Date Mechanical complication of p rosthetic hip implant, initial encounter 03/31/2023 04/05/2023 Incontinence of urine 11/14/20222021 Generalized abdominal pain 11/12/2022 1 01/17/2022 Numbness and tingling of foot 07/20/2021 03/22/2022 Overview: 07/18/21 EMG/NCS 1. 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 These changes are most severe in degree at the S1 root level where there is moderate active motor axon loss change above and below the knee. At L5 these changes are moderate in degree and active change is only seen below the knee. At L3/4 these changes are moderate to severe in degree but without any evidence of active/ongoing motor fiber loss. Screening studies in the right lower limb show similar, but slightly less significant, active on chronic changes at L5/S1 and moderate chronic (noactive) motor axon loss changes at L3/4 suggesting this is a bilateral process and/or related to significant central canal stenosis. 2. 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 Due to overlapping electrodiagnostic features with #1, precise severity is difficult to determine electrodiagnostically. 04/23/21 bone marrow: does not suggest lymphoplasmacytic lymphoma. 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 04/01/[address] Bhat. ESR 29, CK 554 (weight shirt trimmer). Neg: Lead, B2 microglubulin, B12, CMP, CBC/dif. UPEP+ monoclonal protein 24h w/M spine c/ interp 03/11/21 SPEP + m-protein, K/L ratio 1.17, UPEP negative Bilateral hand, foot and ankle numbness Chronic bilateral low back p ain without sciatica 12/18/2020 03/22/2022 Chronic hepatitis C without hepatic coma 01/05/2019 06/29/2023 Overview: 10/10/2021 Hep C not detectable 06/16/[address] Augustine. Completed treatment. Last Assessment & Plan: Assessment: tx by Dr. Augustine, completed tx 05/2019 Albumin (g/dL) Date Value 11/04/2021 4.3 Bilirubin, Total (mg/dL) Date Value 11/04/2021 0.4 Bilirubin, Conjug (mg/dL) Date Value 09/30/2021 <0.2 Alkaline Phosphatase (U/L) Date Value 11/04/2021 53 AST (U/L) Date Value 11/04/2021 19 ALT (U/L) Date Value 11/04/2021 15 Protein, Total (g/dL) Date Value 11/04/2021 6.7 11/04/2021 7.0 Primary localized osteoarthr osis of shoulder region 12/12/2014 03/22/2022 Shoulder pain, right 09/04/2014 022 Impaired fasting blood sugar 10/02/2010 03/22/2022 Anxiety 09/29/2010 03/22/2022 Diarrhea 07/31/2010 11/16/2022 documented as of this encounter (statuses as of 07/17/2023) [facility] History of Past illness Narrative* Problem Noted Date Diagnosed Date Resolved Date Mechanical complication of p rosthetic hip implant, initial encounter 03/31/2023 04/05/2023 Incontinence of urine 11/14/20222021 Generalized abdominal pain 11/12/2022 1 01/17/2022 Numbness and tingling of foot 07/20/2021 03/22/2022 Overview: 07/18/21 EMG/NCS 1. 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 These changes are most severe in degree at the S1 root level where there is moderate active motor axon loss change above and below the knee. At L5 these changes are moderate in degree and active change is only seen below the knee. At L3/4 these changes are moderate to severe in degree but without any evidence of active/ongoing motor fiber loss. Screening studies in the right lower limb show similar, but slightly less significant, active on chronic changes at L5/S1 and moderate chronic (noactive) motor axon loss changes at L3/4 suggesting this is a bilateral process and/or related to significant central canal stenosis. 2. 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 Due to overlapping electrodiagnostic features with #1, precise severity is difficult to determine electrodiagnostically. 04/23/21 bone marrow: does not suggest lymphoplasmacytic lymphoma. 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 04/01/[address] Bhat. ESR 29, CK 554 (weight shirt trimmer). Neg: Lead, B2 microglubulin, B12, CMP, CBC/dif. UPEP+ monoclonal protein 24h w/M spine c/ interp 03/11/21 SPEP + m-protein, K/L ratio 1.17, UPEP negative Bilateral hand, foot and ankle numbness Chronic bilateral low back p ain without sciatica 12/18/2020 03/22/2022 Chronic hepatitis C without hepatic coma 01/05/2019 06/29/2023 Overview: 10/10/2021 Hep C not detectable 06/16/[address] Augustine. Completed treatment. Last Assessment & Plan: Assessment: tx by Dr. Augustine, completed tx 05/2019 Albumin (g/dL) Date Value 11/04/2021 4.3 Bilirubin, Total (mg/dL) Date Value 11/04/2021 0.4 Bilirubin, Conjug (mg/dL) Date Value 09/30/2021 <0.2 Alkaline Phosphatase (U/L) Date Value 11/04/2021 53 AST (U/L) Date Value 11/04/2021 19 ALT (U/L) Date Value 11/04/2021 15 Protein, Total (g/dL) Date Value 11/04/2021 6.7 11/04/2021 7.0 Primary localized osteoarthr osis of shoulder region 12/12/2014 03/22/2022 Shoulder pain, right 09/04/2014 022 Impaired fasting blood sugar 10/02/2010 03/22/2022 Anxiety 09/29/2010 03/22/2022 Diarrhea 07/31/2010 11/16/2022 documented as of this encounter (statuses as of 07/20/2023) [facility] History of Past illness Narrative* Problem Noted Date Diagnosed Date Resolved Date Mechanical complication of p rosthetic hip implant, initial encounter 03/31/2023 04/05/2023 Incontinence of urine 11/14/20222021 Generalized abdominal pain 11/12/2022 1 01/17/2022 Numbness and tingling of foot 07/20/2021 03/22/2022 Overview: 07/18/21 EMG/NCS 1. 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 These changes are most severe in degree at the S1 root level where there is moderate active motor axon loss change above and below the knee. At L5 these changes are moderate in degree and active change is only seen below the knee. At L3/4 these changes are moderate to severe in degree but without any evidence of active/ongoing motor fiber loss. Screening studies in the right lower limb show similar, but slightly less significant, active on chronic changes at L5/S1 and moderate chronic (noactive) motor axon loss changes at L3/4 suggesting this is a bilateral process and/or related to significant central canal stenosis. 2. 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 Due to overlapping electrodiagnostic features with #1, precise severity is difficult to determine electrodiagnostically. 04/23/21 bone marrow: does not suggest lymphoplasmacytic lymphoma. 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 04/01/[address] Bhat. ESR 29, CK 554 (weight shirt trimmer). Neg: Lead, B2 microglubulin, B12, CMP, CBC/dif. UPEP+ monoclonal protein 24h w/M spine c/ interp 03/11/21 SPEP + m-protein, K/L ratio 1.17, UPEP negative Bilateral hand, foot and ankle numbness Chronic bilateral low back p ain without sciatica 12/18/2020 03/22/2022 Chronic hepatitis C without hepatic coma 01/05/2019 06/29/2023 Overview: 10/10/2021 Hep C not detectable 06/16/[address] Augustine. Completed treatment. Last Assessment & Plan: Assessment: tx by Dr. Augustine, completed tx 05/2019 Albumin (g/dL) Date Value 11/04/2021 4.3 Bilirubin, Total (mg/dL) Date Value 11/04/2021 0.4 Bilirubin, Conjug (mg/dL) Date Value 09/30/2021 <0.2 Alkaline Phosphatase (U/L) Date Value 11/04/2021 53 AST (U/L) Date Value 11/04/2021 19 ALT (U/L) Date Value 11/04/2021 15 Protein, Total (g/dL) Date Value 11/04/2021 6.7 11/04/2021 7.0 Primary localized osteoarthr osis of shoulder region 12/12/2014 03/22/2022 Shoulder pain, right 09/04/2014 022 Impaired fasting blood sugar 10/02/2010 03/22/2022 Anxiety 09/29/2010 03/22/2022 Diarrhea 07/31/2010 11/16/2022 documented as of this encounter (statuses as of 07/23/2023) [facility] History of Past illness Narrative* Problem Noted Date Diagnosed Date Resolved Date Mechanical complication of p rosthetic hip implant, initial encounter 03/31/2023 04/05/2023 Incontinence of urine 11/14/20222021 Generalized abdominal pain 11/12/2022 1 01/17/2022 Numbness and tingling of foot 07/20/2021 03/22/2022 Overview: 07/18/21 EMG/NCS 1. 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 These changes are most severe in degree at the S1 root level where there is moderate active motor axon loss change above and below the knee. At L5 these changes are moderate in degree and active change is only seen below the knee. At L3/4 these changes are moderate to severe in degree but without any evidence of active/ongoing motor fiber loss. Screening studies in the right lower limb show similar, but slightly less significant, active on chronic changes at L5/S1 and moderate chronic (noactive) motor axon loss changes at L3/4 suggesting this is a bilateral process and/or related to significant central canal stenosis. 2. 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 Due to overlapping electrodiagnostic features with #1, precise severity is difficult to determine electrodiagnostically. 04/23/21 bone marrow: does not suggest lymphoplasmacytic lymphoma. 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 04/01/[address] Bhat. ESR 29, CK 554 (weight shirt trimmer). Neg: Lead, B2 microglubulin, B12, CMP, CBC/dif. UPEP+ monoclonal protein 24h w/M spine c/ interp 03/11/21 SPEP + m-protein, K/L ratio 1.17, UPEP negative Bilateral hand, foot and ankle numbness Chronic bilateral low back p ain without sciatica 12/18/2020 03/22/2022 Chronic hepatitis C without hepatic coma 01/05/2019 06/29/2023 Overview: 10/10/2021 Hep C not detectable 06/16/[address] Augustine. Completed treatment. Last Assessment & Plan: Assessment: tx by Dr. Augustine, completed tx 05/2019 Albumin (g/dL) Date Value 11/04/2021 4.3 Bilirubin, Total (mg/dL) Date Value 11/04/2021 0.4 Bilirubin, Conjug (mg/dL) Date Value 09/30/2021 <0.2 Alkaline Phosphatase (U/L) Date Value 11/04/2021 53 AST (U/L) Date Value 11/04/2021 19 ALT (U/L) Date Value 11/04/2021 15 Protein, Total (g/dL) Date Value 11/04/2021 6.7 11/04/2021 7.0 Primary localized osteoarthr osis of shoulder region 12/12/2014 03/22/2022 Shoulder pain, right 09/04/2014 022 Impaired fasting blood sugar 10/02/2010 03/22/2022 Anxiety 09/29/2010 03/22/2022 Diarrhea 07/31/2010 11/16/2022 documented as of this encounter (statuses as of 07/23/2023) [facility]05-10-2023 History of Past illness Narrative* Problem Noted Date Diagnosed Date Resolved Date Mechanical complication of p rosthetic hip implant, initial encounter 03/31/2023 04/05/2023 Incontinence of urine 11/14/20222021 Generalized abdominal pain 11/12/2022 1 01/17/2022 Numbness and tingling of foot 07/20/2021 03/22/2022 Overview: 07/18/21 EMG/NCS 1. 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 These changes are most severe in degree at the S1 root level where there is moderate active motor axon loss change above and below the knee. At L5 these changes are moderate in degree and active change is only seen below the knee. At L3/4 these changes are moderate to severe in degree but without any evidence of active/ongoing motor fiber loss. Screening studies in the right lower limb show similar, but slightly less significant, active on chronic changes at L5/S1 and moderate chronic (noactive) motor axon loss changes at L3/4 suggesting this is a bilateral process and/or related to significant central canal stenosis. 2. 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 Due to overlapping electrodiagnostic features with #1, precise severity is difficult to determine electrodiagnostically. 04/23/21 bone marrow: does not suggest lymphoplasmacytic lymphoma. 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 04/01/[address] Bhat. ESR 29, CK 554 (weight shirt trimmer). Neg: Lead, B2 microglubulin, B12, CMP, CBC/dif. UPEP+ monoclonal protein 24h w/M spine c/ interp 03/11/21 SPEP + m-protein, K/L ratio 1.17, UPEP negative Bilateral hand, foot and ankle numbness Chronic bilateral low back p ain without sciatica 12/18/2020 03/22/2022 Chronic hepatitis C without hepatic coma 01/05/2019 06/29/2023 Overview: 10/10/2021 Hep C not detectable 06/16/[address] Augustine. Completed treatment. Last Assessment & Plan: Assessment: tx by Dr. Augustine, completed tx 05/2019 Albumin (g/dL) Date Value 11/04/2021 4.3 Bilirubin, Total (mg/dL) Date Value 11/04/2021 0.4 Bilirubin, Conjug (mg/dL) Date Value 09/30/2021 <0.2 Alkaline Phosphatase (U/L) Date Value 11/04/2021 53 AST (U/L) Date Value 11/04/2021 19 ALT (U/L) Date Value 11/04/2021 15 Protein, Total (g/dL) Date Value 11/04/2021 6.7 11/04/2021 7.0 Primary localized osteoarthr osis of shoulder region 12/12/2014 03/22/2022 Shoulder pain, right 09/04/2014 022 Impaired fasting blood sugar 10/02/2010 03/22/2022 Anxiety 09/29/2010 03/22/2022 Diarrhea 07/31/2010 11/16/2022 documented as of this encounter (statuses as of 07/31/2023) [facility]05-10-2023 History of Past illness Narrative* Problem Noted Date Diagnosed Date Resolved Date Mechanical complication of p rosthetic hip implant, initial encounter 03/31/2023 04/05/2023 Incontinence of urine 11/14/20222021 Generalized abdominal pain 11/12/2022 1 01/17/2022 Numbness and tingling of foot 07/20/2021 03/22/2022 Overview: 07/18/21 EMG/NCS 1. 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 These changes are most severe in degree at the S1 root level where there is moderate active motor axon loss change above and below the knee. At L5 these changes are moderate in degree and active change is only seen below the knee. At L3/4 these changes are moderate to severe in degree but without any evidence of active/ongoing motor fiber loss. Screening studies in the right lower limb show similar, but slightly less significant, active on chronic changes at L5/S1 and moderate chronic (noactive) motor axon loss changes at L3/4 suggesting this is a bilateral process and/or related to significant central canal stenosis. 2. 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 Due to overlapping electrodiagnostic features with #1, precise severity is difficult to determine electrodiagnostically. 04/23/21 bone marrow: does not suggest lymphoplasmacytic lymphoma. 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 04/01/[address] Bhat. ESR 29, CK 554 (weight shirt trimmer). Neg: Lead, B2 microglubulin, B12, CMP, CBC/dif. UPEP+ monoclonal protein 24h w/M spine c/ interp 03/11/21 SPEP + m-protein, K/L ratio 1.17, UPEP negative Bilateral hand, foot and ankle numbness Chronic bilateral low back p ain without sciatica 12/18/2020 03/22/2022 Chronic hepatitis C without hepatic coma 01/05/2019 06/29/2023 Overview: 10/10/2021 Hep C not detectable 06/16/[address] Augustine. Completed treatment. Last Assessment & Plan: Assessment: tx by Dr. Augustine, completed tx 05/2019 Albumin (g/dL) Date Value 11/04/2021 4.3 Bilirubin, Total (mg/dL) Date Value 11/04/2021 0.4 Bilirubin, Conjug (mg/dL) Date Value 09/30/2021 <0.2 Alkaline Phosphatase (U/L) Date Value 11/04/2021 53 AST (U/L) Date Value 11/04/2021 19 ALT (U/L) Date Value 11/04/2021 15 Protein, Total (g/dL) Date Value 11/04/2021 6.7 11/04/2021 7.0 Primary localized osteoarthr osis of shoulder region 12/12/2014 03/22/2022 Shoulder pain, right 09/04/2014 022 Impaired fasting blood sugar 10/02/2010 03/22/2022 Anxiety 09/29/2010 03/22/2022 Diarrhea 07/31/2010 11/16/2022 documented as of this encounter (statuses as of 08/05/2023) [facility]05-10-2023 History of Past illness Narrative* Problem Noted Date Diagnosed Date Resolved Date Mechanical complication of p rosthetic hip implant, initial encounter 03/31/2023 04/05/2023 Incontinence of urine 11/14/20222021 Generalized abdominal pain 11/12/2022 1 01/17/2022 Numbness and tingling of foot 07/20/2021 03/22/2022 Overview: 07/18/21 EMG/NCS 1. 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 These changes are most severe in degree at the S1 root level where there is moderate active motor axon loss change above and below the knee. At L5 these changes are moderate in degree and active change is only seen below the knee. At L3/4 these changes are moderate to severe in degree but without any evidence of active/ongoing motor fiber loss. Screening studies in the right lower limb show similar, but slightly less significant, active on chronic changes at L5/S1 and moderate chronic (noactive) motor axon loss changes at L3/4 suggesting this is a bilateral process and/or related to significant central canal stenosis. 2. 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 Due to overlapping electrodiagnostic features with #1, precise severity is difficult to determine electrodiagnostically. 04/23/21 bone marrow: does not suggest lymphoplasmacytic lymphoma. 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 04/01/[address] Bhat. ESR 29, CK 554 (weight shirt trimmer). Neg: Lead, B2 microglubulin, B12, CMP, CBC/dif. UPEP+ monoclonal protein 24h w/M spine c/ interp 03/11/21 SPEP + m-protein, K/L ratio 1.17, UPEP negative Bilateral hand, foot and ankle numbness Chronic bilateral low back p ain without sciatica 12/18/2020 03/22/2022 Chronic hepatitis C without hepatic coma 01/05/2019 06/29/2023 Overview: 10/10/2021 Hep C not detectable 06/16/[address] Augustine. Completed treatment. Last Assessment & Plan: Assessment: tx by Dr. Augustine, completed tx 05/2019 Albumin (g/dL) Date Value 11/04/2021 4.3 Bilirubin, Total (mg/dL) Date Value 11/04/2021 0.4 Bilirubin, Conjug (mg/dL) Date Value 09/30/2021 <0.2 Alkaline Phosphatase (U/L) Date Value 11/04/2021 53 AST (U/L) Date Value 11/04/2021 19 ALT (U/L) Date Value 11/04/2021 15 Protein, Total (g/dL) Date Value 11/04/2021 6.7 11/04/2021 7.0 Primary localized osteoarthr osis of shoulder region 12/12/2014 03/22/2022 Shoulder pain, right 09/04/2014 022 Impaired fasting blood sugar 10/02/2010 03/22/2022 Anxiety 09/29/2010 03/22/2022 Diarrhea 07/31/2010 11/16/2022 documented as of this encounter (statuses as of 08/11/2023) [facility]05-10-2023 History of Past illness Narrative* Problem Noted Date Diagnosed Date Resolved Date Mechanical complication of p rosthetic hip implant, initial encounter 03/31/2023 04/05/2023 Incontinence of urine 11/14/20222021 Generalized abdominal pain 11/12/2022 1 01/17/2022 Numbness and tingling of foot 07/20/2021 03/22/2022 Overview: 07/18/21 EMG/NCS 1. 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 These changes are most severe in degree at the S1 root level where there is moderate active motor axon loss change above and below the knee. At L5 these changes are moderate in degree and active change is only seen below the knee. At L3/4 these changes are moderate to severe in degree but without any evidence of active/ongoing motor fiber loss. Screening studies in the right lower limb show similar, but slightly less significant, active on chronic changes at L5/S1 and moderate chronic (noactive) motor axon loss changes at L3/4 suggesting this is a bilateral process and/or related to significant central canal stenosis. 2. 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 Due to overlapping electrodiagnostic features with #1, precise severity is difficult to determine electrodiagnostically. 04/23/21 bone marrow: does not suggest lymphoplasmacytic lymphoma. 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 04/01/[address] Bhat. ESR 29, CK 554 (weight shirt trimmer). Neg: Lead, B2 microglubulin, B12, CMP, CBC/dif. UPEP+ monoclonal protein 24h w/M spine c/ interp 03/11/21 SPEP + m-protein, K/L ratio 1.17, UPEP negative Bilateral hand, foot and ankle numbness Chronic bilateral low back p ain without sciatica 12/18/2020 03/22/2022 Chronic hepatitis C without hepatic coma 01/05/2019 06/29/2023 Overview: 10/10/2021 Hep C not detectable 06/16/[address] Augustine. Completed treatment. Last Assessment & Plan: Assessment: tx by Dr. Augustine, completed tx 05/2019 Albumin (g/dL) Date Value 11/04/2021 4.3 Bilirubin, Total (mg/dL) Date Value 11/04/2021 0.4 Bilirubin, Conjug (mg/dL) Date Value 09/30/2021 <0.2 Alkaline Phosphatase (U/L) Date Value 11/04/2021 53 AST (U/L) Date Value 11/04/2021 19 ALT (U/L) Date Value 11/04/2021 15 Protein, Total (g/dL) Date Value 11/04/2021 6.7 11/04/2021 7.0 Primary localized osteoarthr osis of shoulder region 12/12/2014 03/22/2022 Shoulder pain, right 09/04/2014 022 Impaired fasting blood sugar 10/02/2010 03/22/2022 Anxiety 09/29/2010 03/22/2022 Diarrhea 07/31/2010 11/16/2022 documented as of this encounter (statuses as of 08/17/2023) [facility]05-10-2023 History of Past illness Narrative* Problem Noted Date Diagnosed Date Resolved Date Mechanical complication of p rosthetic hip implant, initial encounter 03/31/2023 04/05/2023 Incontinence of urine 11/14/20222021 Generalized abdominal pain 11/12/2022 1 01/17/2022 Numbness and tingling of foot 07/20/2021 03/22/2022 Overview: 07/18/21 EMG/NCS 1. 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 These changes are most severe in degree at the S1 root level where there is moderate active motor axon loss change above and below the knee. At L5 these changes are moderate in degree and active change is only seen below the knee. At L3/4 these changes are moderate to severe in degree but without any evidence of active/ongoing motor fiber loss. Screening studies in the right lower limb show similar, but slightly less significant, active on chronic changes at L5/S1 and moderate chronic (noactive) motor axon loss changes at L3/4 suggesting this is a bilateral process and/or related to significant central canal stenosis. 2. 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 Due to overlapping electrodiagnostic features with #1, precise severity is difficult to determine electrodiagnostically. 04/23/21 bone marrow: does not suggest lymphoplasmacytic lymphoma. 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 04/01/[address] Bhat. ESR 29, CK 554 (weight shirt trimmer). Neg: Lead, B2 microglubulin, B12, CMP, CBC/dif. UPEP+ monoclonal protein 24h w/M spine c/ interp 03/11/21 SPEP + m-protein, K/L ratio 1.17, UPEP negative Bilateral hand, foot and ankle numbness Chronic bilateral low back p ain without sciatica 12/18/2020 03/22/2022 Chronic hepatitis C without hepatic coma 01/05/2019 06/29/2023 Overview: 10/10/2021 Hep C not detectable 06/16/[address] Augustine. Completed treatment. Last Assessment & Plan: Assessment: tx by Dr. Augustine, completed tx 05/2019 Albumin (g/dL) Date Value 11/04/2021 4.3 Bilirubin, Total (mg/dL) Date Value 11/04/2021 0.4 Bilirubin, Conjug (mg/dL) Date Value 09/30/2021 <0.2 Alkaline Phosphatase (U/L) Date Value 11/04/2021 53 AST (U/L) Date Value 11/04/2021 19 ALT (U/L) Date Value 11/04/2021 15 Protein, Total (g/dL) Date Value 11/04/2021 6.7 11/04/2021 7.0 Primary localized osteoarthr osis of shoulder region 12/12/2014 03/22/2022 Shoulder pain, right 09/04/2014 022 Impaired fasting blood sugar 10/02/2010 03/22/2022 Anxiety 09/29/2010 03/22/2022 Diarrhea 07/31/2010 11/16/2022 documented as of this encounter (statuses as of 09/26/2023) [facility]-10[facility]2023 History of Past illness Narrative* Problem Noted Date Diagnosed Date Resolved Date Mechanical complication of p rosthetic hip implant, initial encounter (HCC) 03/31/2023 023 Incontinence of urine 11/14/20222021 Generalized abdominal pain 11/12/2022 1 01/17/2022 Numbness and tingling of foot 07/20/2021 03/22/2022 Overview: 07/18/21 EMG/NCS 1. 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 These changes are most severe in degree at the S1 root level where there is moderate active motor axon loss change above and below the knee. At L5 these changes are moderate in degree and active change is only seen below the knee. At L3/4 these changes are moderate to severe in degree but without any evidence of active/ongoing motor fiber loss. Screening studies in the right lower limb show similar, but slightly less significant, active on chronic changes at L5/S1 and moderate chronic (noactive) motor axon loss changes at L3/4 suggesting this is a bilateral process and/or related to significant central canal stenosis. 2. 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 Due to overlapping electrodiagnostic features with #1, precise severity is difficult to determine electrodiagnostically. 04/23/21 bone marrow: does not suggest lymphoplasmacytic lymphoma. 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 04/01/[address] Bhat. ESR 29, CK 554 (weight shirt trimmer). Neg: Lead, B2 microglubulin, B12, CMP, CBC/dif. UPEP+ monoclonal protein 24h w/M spine c/ interp 03/11/21 SPEP + m-protein, K/L ratio 1.17, UPEP negative Bilateral hand, foot and ankle numbness Chronic bilateral low back p ain without sciatica 12/18/2020 03/22/2022 Chronic hepatitis C without hepatic coma 01/05/2019 06/29/2023 Overview: 10/10/2021 Hep C not detectable 06/16/[address] Augustine. Completed treatment. Last Assessment & Plan: Assessment: tx by Dr. Augustine, completed tx 05/2019 Albumin (g/dL) Date Value 11/04/2021 4.3 Bilirubin, Total (mg/dL) Date Value 11/04/2021 0.4 Bilirubin, Conjug (mg/dL) Date Value 09/30/2021 <0.2 Alkaline Phosphatase (U/L) Date Value 11/04/2021 53 AST (U/L) Date Value 11/04/2021 19 ALT (U/L) Date Value 11/04/2021 15 Protein, Total (g/dL) Date Value 11/04/2021 6.7 11/04/2021 7.0 Primary localized osteoarthr osis of shoulder region 12/12/2014 03/22/2022 Shoulder pain, right 09/04/2014 022 Impaired fasting blood sugar 10/02/2010 03/22/2022 Anxiety 09/29/2010 03/22/2022 Diarrhea 07/31/2010 11/16/2022 documented as of this encounter (statuses as of 09/29/2023) [facility] History of Past illness Narrative* Problem Noted Date Diagnosed Date Resolved Date Mechanical complication of p rosthetic hip implant, initial encounter ([facility]) 03/31/2023 023 Incontinence of urine 11/14/20222021 Generalized abdominal pain 11/12/2022 1 01/17/2022 Numbness and tingling of foot 07/20/2021 03/22/2022 Overview: 07/18/21 EMG/NCS 1. 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 These changes are most severe in degree at the S1 root level where there is moderate active motor axon loss change above and below the knee. At L5 these changes are moderate in degree and active change is only seen below the knee. At L3/4 these changes are moderate to severe in degree but without any evidence of active/ongoing motor fiber loss. Screening studies in the right lower limb show similar, but slightly less significant, active on chronic changes at L5/S1 and moderate chronic (noactive) motor axon loss changes at L3/4 suggesting this is a bilateral process and/or related to significant central canal stenosis. 2. 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 Due to overlapping electrodiagnostic features with #1, precise severity is difficult to determine electrodiagnostically. 04/23/21 bone marrow: does not suggest lymphoplasmacytic lymphoma. 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 04/01/[address] Bhat. ESR 29, CK 554 (weight shirt trimmer). Neg: Lead, B2 microglubulin, B12, CMP, CBC/dif. UPEP+ monoclonal protein 24h w/M spine c/ interp 03/11/21 SPEP + m-protein, K/L ratio 1.17, UPEP negative Bilateral hand, foot and ankle numbness Chronic bilateral low back p ain without sciatica 12/18/2020 03/22/2022 Chronic hepatitis C without hepatic coma 01/05/2019 06/29/2023 Overview: 10/10/2021 Hep C not detectable 06/16/[address] Augustine. Completed treatment. Last Assessment & Plan: Assessment: tx by Dr. Augustine, completed tx 05/2019 Albumin (g/dL) Date Value 11/04/2021 4.3 Bilirubin, Total (mg/dL) Date Value 11/04/2021 0.4 Bilirubin, Conjug (mg/dL) Date Value 09/30/2021 <0.2 Alkaline Phosphatase (U/L) Date Value 11/04/2021 53 AST (U/L) Date Value 11/04/2021 19 ALT (U/L) Date Value 11/04/2021 15 Protein, Total (g/dL) Date Value 11/04/2021 6.7 11/04/2021 7.0 Primary localized osteoarthr osis of shoulder region 12/12/2014 03/22/2022 Shoulder pain, right 09/04/2014 022 Impaired fasting blood sugar 10/02/2010 03/22/2022 Anxiety 09/29/2010 03/22/2022 Diarrhea 07/31/2010 11/16/2022 documented as of this encounter (statuses as of 10/01/2023) [facility] History of Past illness Narrative* Problem Noted Date Diagnosed Date Resolved Date Mechanical complication of p rosthetic hip implant, initial encounter ([facility]) 03/31/2023 023 Incontinence of urine 11/14/20222021 Generalized abdominal pain 11/12/2022 1 01/17/2022 Numbness and tingling of foot 07/20/2021 03/22/2022 Overview: 07/18/21 EMG/NCS 1. 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 These changes are most severe in degree at the S1 root level where there is moderate active motor axon loss change above and below the knee. At L5 these changes are moderate in degree and active change is only seen below the knee. At L3/4 these changes are moderate to severe in degree but without any evidence of active/ongoing motor fiber loss. Screening studies in the right lower limb show similar, but slightly less significant, active on chronic changes at L5/S1 and moderate chronic (noactive) motor axon loss changes at L3/4 suggesting this is a bilateral process and/or related to significant central canal stenosis. 2. 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 Due to overlapping electrodiagnostic features with #1, precise severity is difficult to determine electrodiagnostically. 04/23/21 bone marrow: does not suggest lymphoplasmacytic lymphoma. 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 04/01/[address] Bhat. ESR 29, CK 554 (weight shirt trimmer). Neg: Lead, B2 microglubulin, B12, CMP, CBC/dif. UPEP+ monoclonal protein 24h w/M spine c/ interp 03/11/21 SPEP + m-protein, K/L ratio 1.17, UPEP negative Bilateral hand, foot and ankle numbness Chronic bilateral low back p ain without sciatica 12/18/2020 03/22/2022 Chronic hepatitis C without hepatic coma 01/05/2019 06/29/2023 Overview: 10/10/2021 Hep C not detectable 06/16/[address] Augustine. Completed treatment. Last Assessment & Plan: Assessment: tx by Dr. Augustine, completed tx 05/2019 Albumin (g/dL) Date Value 11/04/2021 4.3 Bilirubin, Total (mg/dL) Date Value 11/04/2021 0.4 Bilirubin, Conjug (mg/dL) Date Value 09/30/2021 <0.2 Alkaline Phosphatase (U/L) Date Value 11/04/2021 53 AST (U/L) Date Value 11/04/2021 19 ALT (U/L) Date Value 11/04/2021 15 Protein, Total (g/dL) Date Value 11/04/2021 6.7 11/04/2021 7.0 Primary localized osteoarthr osis of shoulder region 12/12/2014 03/22/2022 Shoulder pain, right 09/04/2014 022 Impaired fasting blood sugar 10/02/2010 03/22/2022 Anxiety 09/29/2010 03/22/2022 Diarrhea 07/31/2010 11/16/2022 documented as of this encounter (statuses as of 10/22/2023) [facility] History of Past illness Narrative* Problem Noted Date Diagnosed Date Resolved Date Mechanical complication of p rosthetic hip implant, initial encounter ([facility]) 03/31/2023 023 Incontinence of urine 11/14/20222021 Generalized abdominal pain 11/12/2022 1 01/17/2022 Numbness and tingling of foot 07/20/2021 03/22/2022 Overview: 07/18/21 EMG/NCS 1. 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 These changes are most severe in degree at the S1 root level where there is moderate active motor axon loss change above and below the knee. At L5 these changes are moderate in degree and active change is only seen below the knee. At L3/4 these changes are moderate to severe in degree but without any evidence of active/ongoing motor fiber loss. Screening studies in the right lower limb show similar, but slightly less significant, active on chronic changes at L5/S1 and moderate chronic (noactive) motor axon loss changes at L3/4 suggesting this is a bilateral process and/or related to significant central canal stenosis. 2. 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 Due to overlapping electrodiagnostic features with #1, precise severity is difficult to determine electrodiagnostically. 04/23/21 bone marrow: does not suggest lymphoplasmacytic lymphoma. 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 04/01/[address] Bhat. ESR 29, CK 554 (weight shirt trimmer). Neg: Lead, B2 microglubulin, B12, CMP, CBC/dif. UPEP+ monoclonal protein 24h w/M spine c/ interp 03/11/21 SPEP + m-protein, K/L ratio 1.17, UPEP negative Bilateral hand, foot and ankle numbness Chronic bilateral low back p ain without sciatica 12/18/2020 03/22/2022 Chronic hepatitis C without hepatic coma 01/05/2019 06/29/2023 Overview: 10/10/2021 Hep C not detectable 06/16/[address] Augustine. Completed treatment. Last Assessment & Plan: Assessment: tx by Dr. Augustine, completed tx 05/2019 Albumin (g/dL) Date Value 11/04/2021 4.3 Bilirubin, Total (mg/dL) Date Value 11/04/2021 0.4 Bilirubin, Conjug (mg/dL) Date Value 09/30/2021 <0.2 Alkaline Phosphatase (U/L) Date Value 11/04/2021 53 AST (U/L) Date Value 11/04/2021 19 ALT (U/L) Date Value 11/04/2021 15 Protein, Total (g/dL) Date Value 11/04/2021 6.7 11/04/2021 7.0 Primary localized osteoarthr osis of shoulder region 12/12/2014 03/22/2022 Shoulder pain, right 09/04/2014 022 Impaired fasting blood sugar 10/02/2010 03/22/2022 Anxiety 09/29/2010 03/22/2022 Diarrhea 07/31/2010 11/16/2022 documented as of this encounter (statuses as of 11/04/2023) [facility]05-10-2023 History of Past illness Narrative* Problem Noted Date Diagnosed Date Resolved Date Mechanical complication of p rosthetic hip implant, initial encounter ([facility]) 03/31/2023 023 Incontinence of urine 11/14/20222021 Generalized abdominal pain 11/12/2022 1 01/17/2022 Numbness and tingling of foot 07/20/2021 03/22/2022 Overview: 07/18/21 EMG/NCS 1. 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 These changes are most severe in degree at the S1 root level where there is moderate active motor axon loss change above and below the knee. At L5 these changes are moderate in degree and active change is only seen below the knee. At L3/4 these changes are moderate to severe in degree but without any evidence of active/ongoing motor fiber loss. Screening studies in the right lower limb show similar, but slightly less significant, active on chronic changes at L5/S1 and moderate chronic (noactive) motor axon loss changes at L3/4 suggesting this is a bilateral process and/or related to significant central canal stenosis. 2. 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 Due to overlapping electrodiagnostic features with #1, precise severity is difficult to determine electrodiagnostically. 04/23/21 bone marrow: does not suggest lymphoplasmacytic lymphoma. 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 04/01/[address] Masci. ESR 29, CK 554 (weight shirt trimmer). Neg: Lead, B2 microglubulin, B12, CMP, CBC/dif. UPEP+ monoclonal protein 24h w/M spine c/ interp 03/11/21 SPEP + m-protein, K/L ratio 1.17, UPEP negative Bilateral hand, foot and ankle numbness Chronic bilateral low back p ain without sciatica 12/18/2020 03/22/2022 Chronic hepatitis C without hepatic coma 01/05/2019 06/29/2023 Overview: 10/10/2021 Hep C not detectable 06/16/[address] Augustine. Completed treatment. Last Assessment & Plan: Assessment: tx by Dr. Augustine, completed tx 05/2019 Albumin (g/dL) Date Value 11/04/2021 4.3 Bilirubin, Total (mg/dL) Date Value 11/04/2021 0.4 Bilirubin, Conjug (mg/dL) Date Value 09/30/2021 <0.2 Alkaline Phosphatase (U/L) Date Value 11/04/2021 53 AST (U/L) Date Value 11/04/2021 19 ALT (U/L) Date Value 11/04/2021 15 Protein, Total (g/dL) Date Value 11/04/2021 6.7 11/04/2021 7.0 Primary localized osteoarthr osis of shoulder region 12/12/2014 03/22/2022 Shoulder pain, right 09/04/2014 022 Impaired fasting blood sugar 10/02/2010 03/22/2022 Anxiety 09/29/2010 03/22/2022 Diarrhea 07/31/2010 11/16/2022 documented as of this encounter (statuses as of 12/28/2023) [facility]05-10-2023 History of Past illness Narrative* Problem Noted Date Diagnosed Date Resolved Date Mechanical complication of p rosthetic hip implant, initial encounter ([facility]) 03/31/2023 023 Incontinence of urine 11/14/20222021 Generalized abdominal pain 11/12/2022 1 01/17/2022 Numbness and tingling of foot 07/20/2021 03/22/2022 Overview: 07/18/21 EMG/NCS 1. 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 These changes are most severe in degree at the S1 root level where there is moderate active motor axon loss change above and below the knee. At L5 these changes are moderate in degree and active change is only seen below the knee. At L3/4 these changes are moderate to severe in degree but without any evidence of active/ongoing motor fiber loss. Screening studies in the right lower limb show similar, but slightly less significant, active on chronic changes at L5/S1 and moderate chronic (noactive) motor axon loss changes at L3/4 suggesting this is a bilateral process and/or related to significant central canal stenosis. 2. 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 Due to overlapping electrodiagnostic features with #1, precise severity is difficult to determine electrodiagnostically. 04/23/21 bone marrow: does not suggest lymphoplasmacytic lymphoma. 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 04/01/[address] Bhat. ESR 29, CK 554 (weight shirt trimmer). Neg: Lead, B2 microglubulin, B12, CMP, CBC/dif. UPEP+ monoclonal protein 24h w/M spine c/ interp 03/11/21 SPEP + m-protein, K/L ratio 1.17, UPEP negative Bilateral hand, foot and ankle numbness Chronic bilateral low back p ain without sciatica 12/18/2020 03/22/2022 Chronic hepatitis C without hepatic coma 01/05/2019 06/29/2023 Overview: 10/10/2021 Hep C not detectable 06/16/[address] Augustine. Completed treatment. Last Assessment & Plan: Assessment: tx by Dr. Augustine, completed tx 05/2019 Albumin (g/dL) Date Value 11/04/2021 4.3 Bilirubin, Total (mg/dL) Date Value 11/04/2021 0.4 Bilirubin, Conjug (mg/dL) Date Value 09/30/2021 <0.2 Alkaline Phosphatase (U/L) Date Value 11/04/2021 53 AST (U/L) Date Value 11/04/2021 19 ALT (U/L) Date Value 11/04/2021 15 Protein, Total (g/dL) Date Value 11/04/2021 6.7 11/04/2021 7.0 Primary localized osteoarthr osis of shoulder region 12/12/2014 03/22/2022 Shoulder pain, right 09/04/2014 022 Impaired fasting blood sugar 10/02/2010 03/22/2022 Anxiety 09/29/2010 03/22/2022 Diarrhea 07/31/2010 11/16/2022 documented as of this encounter (statuses as of 12/31/2023) [facility]05-10-2023 History of Past illness Narrative* Problem Noted Date Diagnosed Date Resolved Date Mechanical complication of p rosthetic hip implant, initial encounter ([facility]) 03/31/2023 023 Incontinence of urine 11/14/20222021 Generalized abdominal pain 11/12/2022 1 01/17/2022 Numbness and tingling of foot 07/20/2021 03/22/2022 Overview: 07/18/21 EMG/NCS 1. 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 These changes are most severe in degree at the S1 root level where there is moderate active motor axon loss change above and below the knee. At L5 these changes are moderate in degree and active change is only seen below the knee. At L3/4 these changes are moderate to severe in degree but without any evidence of active/ongoing motor fiber loss. Screening studies in the right lower limb show similar, but slightly less significant, active on chronic changes at L5/S1 and moderate chronic (noactive) motor axon loss changes at L3/4 suggesting this is a bilateral process and/or related to significant central canal stenosis. 2. 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 Due to overlapping electrodiagnostic features with #1, precise severity is difficult to determine electrodiagnostically. 04/23/21 bone marrow: does not suggest lymphoplasmacytic lymphoma. 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 04/01/[address] Bhat. ESR 29, CK 554 (weight shirt trimmer). Neg: Lead, B2 microglubulin, B12, CMP, CBC/dif. UPEP+ monoclonal protein 24h w/M spine c/ interp 03/11/21 SPEP + m-protein, K/L ratio 1.17, UPEP negative Bilateral hand, foot and ankle numbness Chronic bilateral low back p ain without sciatica 12/18/2020 03/22/2022 Chronic hepatitis C without hepatic coma 01/05/2019 06/29/2023 Overview: 10/10/2021 Hep C not detectable 06/16/[address] Augustine. Completed treatment. Last Assessment & Plan: Assessment: tx by Dr. Augustine, completed tx 05/2019 Albumin (g/dL) Date Value 11/04/2021 4.3 Bilirubin, Total (mg/dL) Date Value 11/04/2021 0.4 Bilirubin, Conjug (mg/dL) Date Value 09/30/2021 <0.2 Alkaline Phosphatase (U/L) Date Value 11/04/2021 53 AST (U/L) Date Value 11/04/2021 19 ALT (U/L) Date Value 11/04/2021 15 Protein, Total (g/dL) Date Value 11/04/2021 6.7 11/04/2021 7.0 Primary localized osteoarthr osis of shoulder region 12/12/2014 03/22/2022 Shoulder pain, right 09/04/2014 022 Impaired fasting blood sugar 10/02/2010 03/22/2022 Anxiety 09/29/2010 03/22/2022 Diarrhea 07/31/2010 11/16/2022 documented as of this encounter (statuses as of 12/31/2023) [facility]05-10-2023 History of Past illness Narrative* Problem Noted Date Diagnosed Date Resolved Date Mechanical complication of p rosthetic hip implant, initial encounter ([facility]) 03/31/2023 023 Incontinence of urine 11/14/20222021 Generalized abdominal pain 11/12/2022 1 01/17/2022 Numbness and tingling of foot 07/20/2021 03/22/2022 Overview: 07/18/21 EMG/NCS 1. 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 These changes are most severe in degree at the S1 root level where there is moderate active motor axon loss change above and below the knee. At L5 these changes are moderate in degree and active change is only seen below the knee. At L3/4 these changes are moderate to severe in degree but without any evidence of active/ongoing motor fiber loss. Screening studies in the right lower limb show similar, but slightly less significant, active on chronic changes at L5/S1 and moderate chronic (noactive) motor axon loss changes at L3/4 suggesting this is a bilateral process and/or related to significant central canal stenosis. 2. 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 Due to overlapping electrodiagnostic features with #1, precise severity is difficult to determine electrodiagnostically. 04/23/21 bone marrow: does not suggest lymphoplasmacytic lymphoma. 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 04/01/[address] Bhat. ESR 29, CK 554 (weight shirt trimmer). Neg: Lead, B2 microglubulin, B12, CMP, CBC/dif. UPEP+ monoclonal protein 24h w/M spine c/ interp 03/11/21 SPEP + m-protein, K/L ratio 1.17, UPEP negative Bilateral hand, foot and ankle numbness Chronic bilateral low back p ain without sciatica 12/18/2020 03/22/2022 Chronic hepatitis C without hepatic coma 01/05/2019 06/29/2023 Overview: 10/10/2021 Hep C not detectable 06/16/[address] Augustine. Completed treatment. Last Assessment & Plan: Assessment: tx by Dr. Augustine, completed tx 05/2019 Albumin (g/dL) Date Value 11/04/2021 4.3 Bilirubin, Total (mg/dL) Date Value 11/04/2021 0.4 Bilirubin, Conjug (mg/dL) Date Value 09/30/2021 <0.2 Alkaline Phosphatase (U/L) Date Value 11/04/2021 53 AST (U/L) Date Value 11/04/2021 19 ALT (U/L) Date Value 11/04/2021 15 Protein, Total (g/dL) Date Value 11/04/2021 6.7 11/04/2021 7.0 Primary localized osteoarthr osis of shoulder region 12/12/2014 03/22/2022 Shoulder pain, right 09/04/2014 022 Impaired fasting blood sugar 10/02/2010 03/22/2022 Anxiety 09/29/2010 03/22/2022 Diarrhea 07/31/2010 11/16/2022 documented as of this encounter (statuses as of 01/01/2024) [facility]05-10-2023 History of Past illness Narrative* Problem Noted Date Diagnosed Date Resolved Date Mechanical complication of p rosthetic hip implant, initial encounter ([facility]) 03/31/2023 023 Incontinence of urine 11/14/20222021 Generalized abdominal pain 11/12/2022 1 01/17/2022 Numbness and tingling of foot 07/20/2021 03/22/2022 Overview: 07/18/21 EMG/NCS 1. 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 These changes are most severe in degree at the S1 root level where there is moderate active motor axon loss change above and below the knee. At L5 these changes are moderate in degree and active change is only seen below the knee. At L3/4 these changes are moderate to severe in degree but without any evidence of active/ongoing motor fiber loss. Screening studies in the right lower limb show similar, but slightly less significant, active on chronic changes at L5/S1 and moderate chronic (noactive) motor axon loss changes at L3/4 suggesting this is a bilateral process and/or related to significant central canal stenosis. 2. 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 Due to overlapping electrodiagnostic features with #1, precise severity is difficult to determine electrodiagnostically. 04/23/21 bone marrow: does not suggest lymphoplasmacytic lymphoma. 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 04/01/[address] Bhat. ESR 29, CK 554 (weight shirt trimmer). Neg: Lead, B2 microglubulin, B12, CMP, CBC/dif. UPEP+ monoclonal protein 24h w/M spine c/ interp 03/11/21 SPEP + m-protein, K/L ratio 1.17, UPEP negative Bilateral hand, foot and ankle numbness Chronic bilateral low back p ain without sciatica 12/18/2020 03/22/2022 Chronic hepatitis C without hepatic coma 01/05/2019 06/29/2023 Overview: 10/10/2021 Hep C not detectable 06/16/[address] Augustine. Completed treatment. Last Assessment & Plan: Assessment: tx by Dr. Augustine, completed tx 05/2019 Albumin (g/dL) Date Value 11/04/2021 4.3 Bilirubin, Total (mg/dL) Date Value 11/04/2021 0.4 Bilirubin, Conjug (mg/dL) Date Value 09/30/2021 <0.2 Alkaline Phosphatase (U/L) Date Value 11/04/2021 53 AST (U/L) Date Value 11/04/2021 19 ALT (U/L) Date Value 11/04/2021 15 Protein, Total (g/dL) Date Value 11/04/2021 6.7 11/04/2021 7.0 Primary localized osteoarthr osis of shoulder region 12/12/2014 03/22/2022 Shoulder pain, right 09/04/2014 022 Impaired fasting blood sugar 10/02/2010 03/22/2022 Anxiety 09/29/2010 03/22/2022 Diarrhea 07/31/2010 11/16/2022 documented as of this encounter (statuses as of 01/01/2024) [facility]-10[facility] History of Past illness Narrative* Problem Noted Date Diagnosed Date Resolved Date Mechanical complication of p rosthetic hip implant, initial encounter ([facility]) 03/31/2023 023 Incontinence of urine 11/14/20222021 Generalized abdominal pain 11/12/2022 1 01/17/2022 Numbness and tingling of foot 07/20/2021 03/22/2022 Overview: 07/18/21 EMG/NCS 1. 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 These changes are most severe in degree at the S1 root level where there is moderate active motor axon loss change above and below the knee. At L5 these changes are moderate in degree and active change is only seen below the knee. At L3/4 these changes are moderate to severe in degree but without any evidence of active/ongoing motor fiber loss. Screening studies in the right lower limb show similar, but slightly less significant, active on chronic changes at L5/S1 and moderate chronic (noactive) motor axon loss changes at L3/4 suggesting this is a bilateral process and/or related to significant central canal stenosis. 2. 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 Due to overlapping electrodiagnostic features with #1, precise severity is difficult to determine electrodiagnostically. 04/23/21 bone marrow: does not suggest lymphoplasmacytic lymphoma. 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 04/01/[address] Bhat. ESR 29, CK 554 (weight shirt trimmer). Neg: Lead, B2 microglubulin, B12, CMP, CBC/dif. UPEP+ monoclonal protein 24h w/M spine c/ interp 03/11/21 SPEP + m-protein, K/L ratio 1.17, UPEP negative Bilateral hand, foot and ankle numbness Chronic bilateral low back p ain without sciatica 12/18/2020 03/22/2022 Chronic hepatitis C without hepatic coma 01/05/2019 06/29/2023 Overview: 10/10/2021 Hep C not detectable 06/16/[address] Augustine. Completed treatment. Last Assessment & Plan: Assessment: tx by Dr. Augustine, completed tx 05/2019 Albumin (g/dL) Date Value 11/04/2021 4.3 Bilirubin, Total (mg/dL) Date Value 11/04/2021 0.4 Bilirubin, Conjug (mg/dL) Date Value 09/30/2021 <0.2 Alkaline Phosphatase (U/L) Date Value 11/04/2021 53 AST (U/L) Date Value 11/04/2021 19 ALT (U/L) Date Value 11/04/2021 15 Protein, Total (g/dL) Date Value 11/04/2021 6.7 11/04/2021 7.0 Primary localized osteoarthr osis of shoulder region 12/12/2014 03/22/2022 Shoulder pain, right 09/04/2014 022 Impaired fasting blood sugar 10/02/2010 03/22/2022 Anxiety 09/29/2010 03/22/2022 Diarrhea 07/31/2010 11/16/2022 documented as of this encounter (statuses as of 01/03/2024) [facility] History of Past illness Narrative* Problem Noted Date Diagnosed Date Resolved Date Mechanical complication of p rosthetic hip implant, initial encounter ([facility]) 03/31/2023 023 Incontinence of urine 11/14/20222021 Generalized abdominal pain 11/12/2022 1 01/17/2022 Numbness and tingling of foot 07/20/2021 03/22/2022 Overview: 07/18/21 EMG/NCS 1. 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 These changes are most severe in degree at the S1 root level where there is moderate active motor axon loss change above and below the knee. At L5 these changes are moderate in degree and active change is only seen below the knee. At L3/4 these changes are moderate to severe in degree but without any evidence of active/ongoing motor fiber loss. Screening studies in the right lower limb show similar, but slightly less significant, active on chronic changes at L5/S1 and moderate chronic (noactive) motor axon loss changes at L3/4 suggesting this is a bilateral process and/or related to significant central canal stenosis. 2. 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 Due to overlapping electrodiagnostic features with #1, precise severity is difficult to determine electrodiagnostically. 04/23/21 bone marrow: does not suggest lymphoplasmacytic lymphoma. 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 04/01/[address] Bhat. ESR 29, CK 554 (weight shirt trimmer). Neg: Lead, B2 microglubulin, B12, CMP, CBC/dif. UPEP+ monoclonal protein 24h w/M spine c/ interp 03/11/21 SPEP + m-protein, K/L ratio 1.17, UPEP negative Bilateral hand, foot and ankle numbness Chronic bilateral low back p ain without sciatica 12/18/2020 03/22/2022 Chronic hepatitis C without hepatic coma 01/05/2019 06/29/2023 Overview: 10/10/2021 Hep C not detectable 06/16/[address] Augustine. Completed treatment. Last Assessment & Plan: Assessment: tx by Dr. Augustine, completed tx 05/2019 Albumin (g/dL) Date Value 11/04/2021 4.3 Bilirubin, Total (mg/dL) Date Value 11/04/2021 0.4 Bilirubin, Conjug (mg/dL) Date Value 09/30/2021 <0.2 Alkaline Phosphatase (U/L) Date Value 11/04/2021 53 AST (U/L) Date Value 11/04/2021 19 ALT (U/L) Date Value 11/04/2021 15 Protein, Total (g/dL) Date Value 11/04/2021 6.7 11/04/2021 7.0 Primary localized osteoarthr osis of shoulder region 12/12/2014 03/22/2022 Shoulder pain, right 09/04/2014 022 Impaired fasting blood sugar 10/02/2010 03/22/2022 Anxiety 09/29/2010 03/22/2022 Diarrhea 07/31/2010 11/16/2022 documented as of this encounter (statuses as of 01/04/2024) [facility] History of Past illness Narrative* Problem Noted Date Diagnosed Date Resolved Date Mechanical complication of p rosthetic hip implant, initial encounter ([facility]) 03/31/2023 023 Incontinence of urine 11/14/20222021 Generalized abdominal pain 11/12/2022 1 01/17/2022 Numbness and tingling of foot 07/20/2021 03/22/2022 Overview: 07/18/21 EMG/NCS 1. 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 These changes are most severe in degree at the S1 root level where there is moderate active motor axon loss change above and below the knee. At L5 these changes are moderate in degree and active change is only seen below the knee. At L3/4 these changes are moderate to severe in degree but without any evidence of active/ongoing motor fiber loss. Screening studies in the right lower limb show similar, but slightly less significant, active on chronic changes at L5/S1 and moderate chronic (noactive) motor axon loss changes at L3/4 suggesting this is a bilateral process and/or related to significant central canal stenosis. 2. 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 Due to overlapping electrodiagnostic features with #1, precise severity is difficult to determine electrodiagnostically. 04/23/21 bone marrow: does not suggest lymphoplasmacytic lymphoma. 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 04/01/[address] Bhat. ESR 29, CK 554 (weight shirt trimmer). Neg: Lead, B2 microglubulin, B12, CMP, CBC/dif. UPEP+ monoclonal protein 24h w/M spine c/ interp 03/11/21 SPEP + m-protein, K/L ratio 1.17, UPEP negative Bilateral hand, foot and ankle numbness Chronic bilateral low back p ain without sciatica 12/18/2020 03/22/2022 Chronic hepatitis C without hepatic coma 01/05/2019 06/29/2023 Overview: 10/10/2021 Hep C not detectable 06/16/[address] Augustine. Completed treatment. Last Assessment & Plan: Assessment: tx by Dr. Augustine, completed tx 05/2019 Albumin (g/dL) Date Value 11/04/2021 4.3 Bilirubin, Total (mg/dL) Date Value 11/04/2021 0.4 Bilirubin, Conjug (mg/dL) Date Value 09/30/2021 <0.2 Alkaline Phosphatase (U/L) Date Value 11/04/2021 53 AST (U/L) Date Value 11/04/2021 19 ALT (U/L) Date Value 11/04/2021 15 Protein, Total (g/dL) Date Value 11/04/2021 6.7 11/04/2021 7.0 Primary localized osteoarthr osis of shoulder region 12/12/2014 03/22/2022 Shoulder pain, right 09/04/2014 022 Impaired fasting blood sugar 10/02/2010 03/22/2022 Anxiety 09/29/2010 03/22/2022 Diarrhea 07/31/2010 11/16/2022 documented as of this encounter (statuses as of 01/04/2024) [facility] History of Past illness Narrative* Problem Noted Date Diagnosed Date Resolved Date Mechanical complication of p rosthetic hip implant, initial encounter ([facility]) 03/31/2023 023 Incontinence of urine 11/14/20222021 Generalized abdominal pain 11/12/2022 1 01/17/2022 Numbness and tingling of foot 07/20/2021 03/22/2022 Overview: 07/18/21 EMG/NCS 1. 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 These changes are most severe in degree at the S1 root level where there is moderate active motor axon loss change above and below the knee. At L5 these changes are moderate in degree and active change is only seen below the knee. At L3/4 these changes are moderate to severe in degree but without any evidence of active/ongoing motor fiber loss. Screening studies in the right lower limb show similar, but slightly less significant, active on chronic changes at L5/S1 and moderate chronic (noactive) motor axon loss changes at L3/4 suggesting this is a bilateral process and/or related to significant central canal stenosis. 2. 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 Due to overlapping electrodiagnostic features with #1, precise severity is difficult to determine electrodiagnostically. 04/23/21 bone marrow: does not suggest lymphoplasmacytic lymphoma. 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 04/01/[address] Bhat. ESR 29, CK 554 (weight shirt trimmer). Neg: Lead, B2 microglubulin, B12, CMP, CBC/dif. UPEP+ monoclonal protein 24h w/M spine c/ interp 03/11/21 SPEP + m-protein, K/L ratio 1.17, UPEP negative Bilateral hand, foot and ankle numbness Chronic bilateral low back p ain without sciatica 12/18/2020 03/22/2022 Chronic hepatitis C without hepatic coma 01/05/2019 06/29/2023 Overview: 10/10/2021 Hep C not detectable 06/16/[address] Augustine. Completed treatment. Last Assessment & Plan: Assessment: tx by Dr. Augustine, completed tx 05/2019 Albumin (g/dL) Date Value 11/04/2021 4.3 Bilirubin, Total (mg/dL) Date Value 11/04/2021 0.4 Bilirubin, Conjug (mg/dL) Date Value 09/30/2021 <0.2 Alkaline Phosphatase (U/L) Date Value 11/04/2021 53 AST (U/L) Date Value 11/04/2021 19 ALT (U/L) Date Value 11/04/2021 15 Protein, Total (g/dL) Date Value 11/04/2021 6.7 11/04/2021 7.0 Primary localized osteoarthr osis of shoulder region 12/12/2014 03/22/2022 Shoulder pain, right 09/04/2014 022 Impaired fasting blood sugar 10/02/2010 03/22/2022 Anxiety 09/29/2010 03/22/2022 Diarrhea 07/31/2010 11/16/2022 documented as of this encounter (statuses as of 01/05/2024) [facility]05-10-2023 History of Past illness Narrative* Problem Noted Date Diagnosed Date Resolved Date Mechanical complication of p rosthetic hip implant, initial encounter ([facility]) 03/31/2023 023 Incontinence of urine 11/14/20222021 Generalized abdominal pain 11/12/2022 1 01/17/2022 Numbness and tingling of foot 07/20/2021 03/22/2022 Overview: 07/18/21 EMG/NCS 1. 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 These changes are most severe in degree at the S1 root level where there is moderate active motor axon loss change above and below the knee. At L5 these changes are moderate in degree and active change is only seen below the knee. At L3/4 these changes are moderate to severe in degree but without any evidence of active/ongoing motor fiber loss. Screening studies in the right lower limb show similar, but slightly less significant, active on chronic changes at L5/S1 and moderate chronic (noactive) motor axon loss changes at L3/4 suggesting this is a bilateral process and/or related to significant central canal stenosis. 2. 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 Due to overlapping electrodiagnostic features with #1, precise severity is difficult to determine electrodiagnostically. 04/23/21 bone marrow: does not suggest lymphoplasmacytic lymphoma. 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 04/01/[address] Bhat. ESR 29, CK 554 (weight shirt trimmer). Neg: Lead, B2 microglubulin, B12, CMP, CBC/dif. UPEP+ monoclonal protein 24h w/M spine c/ interp 03/11/21 SPEP + m-protein, K/L ratio 1.17, UPEP negative Bilateral hand, foot and ankle numbness Chronic bilateral low back p ain without sciatica 12/18/2020 03/22/2022 Chronic hepatitis C without hepatic coma 01/05/2019 06/29/2023 Overview: 10/10/2021 Hep C not detectable 06/16/[address] Augustine. Completed treatment. Last Assessment & Plan: Assessment: tx by Dr. Augustine, completed tx 05/2019 Albumin (g/dL) Date Value 11/04/2021 4.3 Bilirubin, Total (mg/dL) Date Value 11/04/2021 0.4 Bilirubin, Conjug (mg/dL) Date Value 09/30/2021 <0.2 Alkaline Phosphatase (U/L) Date Value 11/04/2021 53 AST (U/L) Date Value 11/04/2021 19 ALT (U/L) Date Value 11/04/2021 15 Protein, Total (g/dL) Date Value 11/04/2021 6.7 11/04/2021 7.0 Primary localized osteoarthr osis of shoulder region 12/12/2014 03/22/2022 Shoulder pain, right 09/04/2014 022 Impaired fasting blood sugar 10/02/2010 03/22/2022 Anxiety 09/29/2010 03/22/2022 Diarrhea 07/31/2010 11/16/2022 documented as of this encounter (statuses as of 01/12/2024) [facility]05-10-2023 History of Past illness Narrative* Problem Noted Date Diagnosed Date Resolved Date Mechanical complication of p rosthetic hip implant, initial encounter ([facility]) 03/31/2023 05/15/2 023 Incontinence of urine 11/14/20222021 Generalized abdominal pain 11/12/2022 1 01/17/2022 Numbness and tingling of foot 07/20/2021 03/22/2022 Overview: 07/18/21 EMG/NCS 1. 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 These changes are most severe in degree at the S1 root level where there is moderate active motor axon loss change above and below the knee. At L5 these changes are moderate in degree and active change is only seen below the knee. At L3/4 these changes are moderate to severe in degree but without any evidence of active/ongoing motor fiber loss. Screening studies in the right lower limb show similar, but slightly less significant, active on chronic changes at L5/S1 and moderate chronic (noactive) motor axon loss changes at L3/4 suggesting this is a bilateral process and/or related to significant central canal stenosis. 2. 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 Due to overlapping electrodiagnostic features with #1, precise severity is difficult to determine electrodiagnostically. 04/23/21 bone marrow: does not suggest lymphoplasmacytic lymphoma. 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 04/01/[address] Bhat. ESR 29, CK 554 (weight shirt trimmer). Neg: Lead, B2 microglubulin, B12, CMP, CBC/dif. UPEP+ monoclonal protein 24h w/M spine c/ interp 03/11/21 SPEP + m-protein, K/L ratio 1.17, UPEP negative Bilateral hand, foot and ankle numbness Chronic bilateral low back p ain without sciatica 12/18/2020 03/22/2022 Chronic hepatitis C without hepatic coma 01/05/2019 06/29/2023 Overview: 10/10/2021 Hep C not detectable 06/16/[address] Augustine. Completed treatment. Last Assessment & Plan: Assessment: tx by Dr. Augustine, completed tx 05/2019 Albumin (g/dL) Date Value 11/04/2021 4.3 Bilirubin, Total (mg/dL) Date Value 11/04/2021 0.4 Bilirubin, Conjug (mg/dL) Date Value 09/30/2021 <0.2 Alkaline Phosphatase (U/L) Date Value 11/04/2021 53 AST (U/L) Date Value 11/04/2021 19 ALT (U/L) Date Value 11/04/2021 15 Protein, Total (g/dL) Date Value 11/04/2021 6.7 11/04/2021 7.0 Primary localized osteoarthr osis of shoulder region 12/12/2014 03/22/2022 Shoulder pain, right 09/04/2014 022 Impaired fasting blood sugar 10/02/2010 03/22/2022 Anxiety 09/29/2010 03/22/2022 Diarrhea 07/31/2010 11/16/2022 documented as of this encounter (statuses as of 01/31/2024) [facility]05-10-2023 History of Past illness Narrative* Problem Noted Date Diagnosed Date Resolved Date Mechanical complication of p rosthetic hip implant, initial encounter ([facility]) 03/31/2023 023 Incontinence of urine 11/14/20222021 Generalized abdominal pain 11/12/2022 1 01/17/2022 Numbness and tingling of foot 07/20/2021 03/22/2022 Overview: 07/18/21 EMG/NCS 1. 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 These changes are most severe in degree at the S1 root level where there is moderate active motor axon loss change above and below the knee. At L5 these changes are moderate in degree and active change is only seen below the knee. At L3/4 these changes are moderate to severe in degree but without any evidence of active/ongoing motor fiber loss. Screening studies in the right lower limb show similar, but slightly less significant, active on chronic changes at L5/S1 and moderate chronic (noactive) motor axon loss changes at L3/4 suggesting this is a bilateral process and/or related to significant central canal stenosis. 2. 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 Due to overlapping electrodiagnostic features with #1, precise severity is difficult to determine electrodiagnostically. 04/23/21 bone marrow: does not suggest lymphoplasmacytic lymphoma. 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 04/01/[address] Bhat. ESR 29, CK 554 (weight shirt trimmer). Neg: Lead, B2 microglubulin, B12, CMP, CBC/dif. UPEP+ monoclonal protein 24h w/M spine c/ interp 03/11/21 SPEP + m-protein, K/L ratio 1.17, UPEP negative Bilateral hand, foot and ankle numbness Chronic bilateral low back p ain without sciatica 12/18/2020 03/22/2022 Chronic hepatitis C without hepatic coma 01/05/2019 06/29/2023 Overview: 10/10/2021 Hep C not detectable 06/16/[address] Augustine. Completed treatment. Last Assessment & Plan: Assessment: tx by Dr. Augustine, completed tx 05/2019 Albumin (g/dL) Date Value 11/04/2021 4.3 Bilirubin, Total (mg/dL) Date Value 11/04/2021 0.4 Bilirubin, Conjug (mg/dL) Date Value 09/30/2021 <0.2 Alkaline Phosphatase (U/L) Date Value 11/04/2021 53 AST (U/L) Date Value 11/04/2021 19 ALT (U/L) Date Value 11/04/2021 15 Protein, Total (g/dL) Date Value 11/04/2021 6.7 11/04/2021 7.0 Primary localized osteoarthr osis of shoulder region 12/12/2014 03/22/2022 Shoulder pain, right 09/04/2014 022 Impaired fasting blood sugar 10/02/2010 03/22/2022 Anxiety 09/29/2010 03/22/2022 Diarrhea 07/31/2010 11/16/2022 documented as of this encounter (statuses as of 02/03/2024) [facility]05-10-2023 History of Past illness Narrative* Problem Noted Date Diagnosed Date Resolved Date Mechanical complication of p rosthetic hip implant, initial encounter ([facility]) 03/31/2023 023 Incontinence of urine 11/14/20222021 Generalized abdominal pain 11/12/2022 1 01/17/2022 Numbness and tingling of foot 07/20/2021 03/22/2022 Overview: 07/18/21 EMG/NCS 1. 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 These changes are most severe in degree at the S1 root level where there is moderate active motor axon loss change above and below the knee. At L5 these changes are moderate in degree and active change is only seen below the knee. At L3/4 these changes are moderate to severe in degree but without any evidence of active/ongoing motor fiber loss. Screening studies in the right lower limb show similar, but slightly less significant, active on chronic changes at L5/S1 and moderate chronic (noactive) motor axon loss changes at L3/4 suggesting this is a bilateral process and/or related to significant central canal stenosis. 2. 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 Due to overlapping electrodiagnostic features with #1, precise severity is difficult to determine electrodiagnostically. 04/23/21 bone marrow: does not suggest lymphoplasmacytic lymphoma. 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 04/01/[address] Bhat. ESR 29, CK 554 (weight shirt trimmer). Neg: Lead, B2 microglubulin, B12, CMP, CBC/dif. UPEP+ monoclonal protein 24h w/M spine c/ interp 03/11/21 SPEP + m-protein, K/L ratio 1.17, UPEP negative Bilateral hand, foot and ankle numbness Chronic bilateral low back p ain without sciatica 12/18/2020 03/22/2022 Chronic hepatitis C without hepatic coma 01/05/2019 06/29/2023 Overview: 10/10/2021 Hep C not detectable 06/16/[address] Augustine. Completed treatment. Last Assessment & Plan: Assessment: tx by Dr. Augustine, completed tx 05/2019 Albumin (g/dL) Date Value 11/04/2021 4.3 Bilirubin, Total (mg/dL) Date Value 11/04/2021 0.4 Bilirubin, Conjug (mg/dL) Date Value 09/30/2021 <0.2 Alkaline Phosphatase (U/L) Date Value 11/04/2021 53 AST (U/L) Date Value 11/04/2021 19 ALT (U/L) Date Value 11/04/2021 15 Protein, Total (g/dL) Date Value 11/04/2021 6.7 11/04/2021 7.0 Primary localized osteoarthr osis of shoulder region 12/12/2014 03/22/2022 Shoulder pain, right 09/04/2014 022 Impaired fasting blood sugar 10/02/2010 03/22/2022 Anxiety 09/29/2010 03/22/2022 Diarrhea 07/31/2010 11/16/2022 documented as of this encounter (statuses as of 02/04/2024) [facility]-10[facility]2023 History of Past illness Narrative* Problem Noted Date Diagnosed Date Resolved Date Mechanical complication of p rosthetic hip implant, initial encounter ([facility]) 03/31/2023 023 Incontinence of urine 11/14/20222021 Generalized abdominal pain 11/12/2022 1 01/17/2022 Numbness and tingling of foot 07/20/2021 03/22/2022 Overview: 07/18/21 EMG/NCS 1. 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 These changes are most severe in degree at the S1 root level where there is moderate active motor axon loss change above and below the knee. At L5 these changes are moderate in degree and active change is only seen below the knee. At L3/4 these changes are moderate to severe in degree but without any evidence of active/ongoing motor fiber loss. Screening studies in the right lower limb show similar, but slightly less significant, active on chronic changes at L5/S1 and moderate chronic (noactive) motor axon loss changes at L3/4 suggesting this is a bilateral process and/or related to significant central canal stenosis. 2. 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 Due to overlapping electrodiagnostic features with #1, precise severity is difficult to determine electrodiagnostically. 04/23/21 bone marrow: does not suggest lymphoplasmacytic lymphoma. 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 04/01/[address] Bhat. ESR 29, CK 554 (weight shirt trimmer). Neg: Lead, B2 microglubulin, B12, CMP, CBC/dif. UPEP+ monoclonal protein 24h w/M spine c/ interp 03/11/21 SPEP + m-protein, K/L ratio 1.17, UPEP negative Bilateral hand, foot and ankle numbness Chronic bilateral low back p ain without sciatica 12/18/2020 03/22/2022 Chronic hepatitis C without hepatic coma 01/05/2019 06/29/2023 Overview: 10/10/2021 Hep C not detectable 06/16/[address] Augustine. Completed treatment. Last Assessment & Plan: Assessment: tx by Dr. Augustine, completed tx 05/2019 Albumin (g/dL) Date Value 11/04/2021 4.3 Bilirubin, Total (mg/dL) Date Value 11/04/2021 0.4 Bilirubin, Conjug (mg/dL) Date Value 09/30/2021 <0.2 Alkaline Phosphatase (U/L) Date Value 11/04/2021 53 AST (U/L) Date Value 11/04/2021 19 ALT (U/L) Date Value 11/04/2021 15 Protein, Total (g/dL) Date Value 11/04/2021 6.7 11/04/2021 7.0 Primary localized osteoarthr osis of shoulder region 12/12/2014 03/22/2022 Shoulder pain, right 09/04/2014 022 Impaired fasting blood sugar 10/02/2010 03/22/2022 Anxiety 09/29/2010 03/22/2022 Diarrhea 07/31/2010 11/16/2022 documented as of this encounter (statuses as of 02/04/2024) [facility]-10[facility] History of Past illness Narrative* Problem Noted Date Diagnosed Date Resolved Date Mechanical complication of p rosthetic hip implant, initial encounter ([facility]) 03/31/2023 023 Incontinence of urine 11/14/20222021 Generalized abdominal pain 11/12/2022 1 01/17/2022 Numbness and tingling of foot 07/20/2021 03/22/2022 Overview: 07/18/21 EMG/NCS 1. 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 These changes are most severe in degree at the S1 root level where there is moderate active motor axon loss change above and below the knee. At L5 these changes are moderate in degree and active change is only seen below the knee. At L3/4 these changes are moderate to severe in degree but without any evidence of active/ongoing motor fiber loss. Screening studies in the right lower limb show similar, but slightly less significant, active on chronic changes at L5/S1 and moderate chronic (noactive) motor axon loss changes at L3/4 suggesting this is a bilateral process and/or related to significant central canal stenosis. 2. 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 Due to overlapping electrodiagnostic features with #1, precise severity is difficult to determine electrodiagnostically. 04/23/21 bone marrow: does not suggest lymphoplasmacytic lymphoma. 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 04/01/[address] Bhat. ESR 29, CK 554 (weight shirt trimmer). Neg: Lead, B2 microglubulin, B12, CMP, CBC/dif. UPEP+ monoclonal protein 24h w/M spine c/ interp 4/20/21 SPEP + m-protein, K/L ratio 1.17, UPEP negative Bilateral hand, foot and ankle numbness Chronic bilateral low back p ain without sciatica 12/18/2020 03/22/2022 Chronic hepatitis C without hepatic coma 01/05/2019 06/29/2023 Overview: 10/10/2021 Hep C not detectable 06/16/[address] Augustine. Completed treatment. Last Assessment & Plan: Assessment: tx by Dr. Augustine, completed tx 05/2019 Albumin (g/dL) Date Value 11/04/2021 4.3 Bilirubin, Total (mg/dL) Date Value 11/04/2021 0.4 Bilirubin, Conjug (mg/dL) Date Value 09/30/2021 <0.2 Alkaline Phosphatase (U/L) Date Value 11/04/2021 53 AST (U/L) Date Value 11/04/2021 19 ALT (U/L) Date Value 11/04/2021 15 Protein, Total (g/dL) Date Value 11/04/2021 6.7 11/04/2021 7.0 Primary localized osteoarthr osis of shoulder region 12/12/2014 03/22/2022 Shoulder pain, right 09/04/2014 022 Impaired fasting blood sugar 10/02/2010 03/22/2022 Anxiety 09/29/2010 03/22/2022 Diarrhea 07/31/2010 11/16/2022 documented as of this encounter (statuses as of 02/07/2024) [facility] History of Past illness Narrative* Problem Noted Date Diagnosed Date Resolved Date Mechanical complication of p rosthetic hip implant, initial encounter ([facility]) 03/31/2023 023 Incontinence of urine 11/14/20222021 Generalized abdominal pain 11/12/2022 1 01/17/2022 Numbness and tingling of foot 07/20/2021 03/22/2022 Overview: 07/18/21 EMG/NCS 1. 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 These changes are most severe in degree at the S1 root level where there is moderate active motor axon loss change above and below the knee. At L5 these changes are moderate in degree and active change is only seen below the knee. At L3/4 these changes are moderate to severe in degree but without any evidence of active/ongoing motor fiber loss. Screening studies in the right lower limb show similar, but slightly less significant, active on chronic changes at L5/S1 and moderate chronic (noactive) motor axon loss changes at L3/4 suggesting this is a bilateral process and/or related to significant central canal stenosis. 2. 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 Due to overlapping electrodiagnostic features with #1, precise severity is difficult to determine electrodiagnostically. 04/23/21 bone marrow: does not suggest lymphoplasmacytic lymphoma. 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 04/01/[address] Bhat. ESR 29, CK 554 (weight shirt trimmer). Neg: Lead, B2 microglubulin, B12, CMP, CBC/dif. UPEP+ monoclonal protein 24h w/M spine c/ interp 03/11/21 SPEP + m-protein, K/L ratio 1.17, UPEP negative Bilateral hand, foot and ankle numbness Chronic bilateral low back p ain without sciatica 12/18/2020 03/22/2022 Chronic hepatitis C without hepatic coma 01/05/2019 06/29/2023 Overview: 10/10/2021 Hep C not detectable 06/16/[address] Augustine. Completed treatment. Last Assessment & Plan: Assessment: tx by Dr. Augustine, completed tx 05/2019 Albumin (g/dL) Date Value 11/04/2021 4.3 Bilirubin, Total (mg/dL) Date Value 11/04/2021 0.4 Bilirubin, Conjug (mg/dL) Date Value 09/30/2021 <0.2 Alkaline Phosphatase (U/L) Date Value 11/04/2021 53 AST (U/L) Date Value 11/04/2021 19 ALT (U/L) Date Value 11/04/2021 15 Protein, Total (g/dL) Date Value 11/04/2021 6.7 11/04/2021 7.0 Primary localized osteoarthr osis of shoulder region 12/12/2014 03/22/2022 Shoulder pain, right 09/04/2014 022 Impaired fasting blood sugar 10/02/2010 03/22/2022 Anxiety 09/29/2010 03/22/2022 Diarrhea 07/31/2010 11/16/2022 documented as of this encounter (statuses as of 02/07/2024) [facility] History of Past illness Narrative* Problem Noted Date Diagnosed Date Resolved Date Mechanical complication of p rosthetic hip implant, initial encounter ([facility]) 03/31/2023 023 Incontinence of urine 11/14/20222021 Generalized abdominal pain 11/12/2022 1 01/17/2022 Numbness and tingling of foot 07/20/2021 03/22/2022 Overview: 07/18/21 EMG/NCS 1. 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 These changes are most severe in degree at the S1 root level where there is moderate active motor axon loss change above and below the knee. At L5 these changes are moderate in degree and active change is only seen below the knee. At L3/4 these changes are moderate to severe in degree but without any evidence of active/ongoing motor fiber loss. Screening studies in the right lower limb show similar, but slightly less significant, active on chronic changes at L5/S1 and moderate chronic (noactive) motor axon loss changes at L3/4 suggesting this is a bilateral process and/or related to significant central canal stenosis. 2. 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 Due to overlapping electrodiagnostic features with #1, precise severity is difficult to determine electrodiagnostically. 04/23/21 bone marrow: does not suggest lymphoplasmacytic lymphoma. 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 04/01/[address] Bhat. ESR 29, CK 554 (weight shirt trimmer). Neg: Lead, B2 microglubulin, B12, CMP, CBC/dif. UPEP+ monoclonal protein 24h w/M spine c/ interp 03/11/21 SPEP + m-protein, K/L ratio 1.17, UPEP negative Bilateral hand, foot and ankle numbness Chronic bilateral low back p ain without sciatica 12/18/2020 03/22/2022 Chronic hepatitis C without hepatic coma 01/05/2019 06/29/2023 Overview: 10/10/2021 Hep C not detectable 06/16/[address] Augustine. Completed treatment. Last Assessment & Plan: Assessment: tx by Dr. Augustine, completed tx 05/2019 Albumin (g/dL) Date Value 11/04/2021 4.3 Bilirubin, Total (mg/dL) Date Value 11/04/2021 0.4 Bilirubin, Conjug (mg/dL) Date Value 09/30/2021 <0.2 Alkaline Phosphatase (U/L) Date Value 11/04/2021 53 AST (U/L) Date Value 11/04/2021 19 ALT (U/L) Date Value 11/04/2021 15 Protein, Total (g/dL) Date Value 11/04/2021 6.7 11/04/2021 7.0 Primary localized osteoarthr osis of shoulder region 12/12/2014 03/22/2022 Shoulder pain, right 09/04/2014 022 Impaired fasting blood sugar 10/02/2010 03/22/2022 Anxiety 09/29/2010 03/22/2022 Diarrhea 07/31/2010 11/16/2022 documented as of this encounter (statuses as of 02/07/2024) [facility]05-10-2023 History of Past illness Narrative* Problem Noted Date Diagnosed Date Resolved Date Mechanical complication of p rosthetic hip implant, initial encounter (HCC) 03/31/2023 023 Incontinence of urine 11/14/20222021 Generalized abdominal pain 11/12/2022 1 01/17/2022 Numbness and tingling of foot 07/20/2021 03/22/2022 Overview: 07/18/21 EMG/NCS 1. 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 These changes are most severe in degree at the S1 root level where there is moderate active motor axon loss change above and below the knee. At L5 these changes are moderate in degree and active change is only seen below the knee. At L3/4 these changes are moderate to severe in degree but without any evidence of active/ongoing motor fiber loss. Screening studies in the right lower limb show similar, but slightly less significant, active on chronic changes at L5/S1 and moderate chronic (noactive) motor axon loss changes at L3/4 suggesting this is a bilateral process and/or related to significant central canal stenosis. 2. 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 Due to overlapping electrodiagnostic features with #1, precise severity is difficult to determine electrodiagnostically. 04/23/21 bone marrow: does not suggest lymphoplasmacytic lymphoma. 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 04/01/[address] Bhat. ESR 29, CK 554 (weight shirt trimmer). Neg: Lead, B2 microglubulin, B12, CMP, CBC/dif. UPEP+ monoclonal protein 24h w/M spine c/ interp 03/11/21 SPEP + m-protein, K/L ratio 1.17, UPEP negative Bilateral hand, foot and ankle numbness Chronic bilateral low back p ain without sciatica 12/18/2020 03/22/2022 Chronic hepatitis C without hepatic coma 01/05/2019 06/29/2023 Overview: 10/10/2021 Hep C not detectable 06/16/[address] Augustine. Completed treatment. Last Assessment & Plan: Assessment: tx by Dr. Augustine, completed tx 05/2019 Albumin (g/dL) Date Value 11/04/2021 4.3 Bilirubin, Total (mg/dL) Date Value 11/04/2021 0.4 Bilirubin, Conjug (mg/dL) Date Value 09/30/2021 <0.2 Alkaline Phosphatase (U/L) Date Value 11/04/2021 53 AST (U/L) Date Value 11/04/2021 19 ALT (U/L) Date Value 11/04/2021 15 Protein, Total (g/dL) Date Value 11/04/2021 6.7 11/04/2021 7.0 Primary localized osteoarthr osis of shoulder region 12/12/2014 03/22/2022 Shoulder pain, right 09/04/2014 022 Impaired fasting blood sugar 10/02/2010 03/22/2022 Anxiety 09/29/2010 03/22/2022 Diarrhea 07/31/2010 11/16/2022 documented as of this encounter (statuses as of 02/08/2024) [facility]05-10-2023 History of Past illness Narrative* Problem Noted Date Diagnosed Date Resolved Date Mechanical complication of p rosthetic hip implant, initial encounter ([facility]) 03/31/2023 023 Incontinence of urine 11/14/20222021 Generalized abdominal pain 11/12/2022 1 01/17/2022 Numbness and tingling of foot 07/20/2021 03/22/2022 Overview: 07/18/21 EMG/NCS 1. 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 These changes are most severe in degree at the S1 root level where there is moderate active motor axon loss change above and below the knee. At L5 these changes are moderate in degree and active change is only seen below the knee. At L3/4 these changes are moderate to severe in degree but without any evidence of active/ongoing motor fiber loss. Screening studies in the right lower limb show similar, but slightly less significant, active on chronic changes at L5/S1 and moderate chronic (noactive) motor axon loss changes at L3/4 suggesting this is a bilateral process and/or related to significant central canal stenosis. 2. 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 Due to overlapping electrodiagnostic features with #1, precise severity is difficult to determine electrodiagnostically. 04/23/21 bone marrow: does not suggest lymphoplasmacytic lymphoma. 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 04/01/[address] Bhat. ESR 29, CK 554 (weight shirt trimmer). Neg: Lead, B2 microglubulin, B12, CMP, CBC/dif. UPEP+ monoclonal protein 24h w/M spine c/ interp 03/11/21 SPEP + m-protein, K/L ratio 1.17, UPEP negative Bilateral hand, foot and ankle numbness Chronic bilateral low back p ain without sciatica 12/18/2020 03/22/2022 Chronic hepatitis C without hepatic coma 01/05/2019 06/29/2023 Overview: 10/10/2021 Hep C not detectable 06/16/[address] Augustine. Completed treatment. Last Assessment & Plan: Assessment: tx by Dr. Augustine, completed tx 05/2019 Albumin (g/dL) Date Value 11/04/2021 4.3 Bilirubin, Total (mg/dL) Date Value 11/04/2021 0.4 Bilirubin, Conjug (mg/dL) Date Value 09/30/2021 <0.2 Alkaline Phosphatase (U/L) Date Value 11/04/2021 53 AST (U/L) Date Value 11/04/2021 19 ALT (U/L) Date Value 11/04/2021 15 Protein, Total (g/dL) Date Value 11/04/2021 6.7 11/04/2021 7.0 Primary localized osteoarthr osis of shoulder region 12/12/2014 03/22/2022 Shoulder pain, right 09/04/2014 022 Impaired fasting blood sugar 10/02/2010 03/22/2022 Anxiety 09/29/2010 03/22/2022 Diarrhea 07/31/2010 11/16/2022 documented as of this encounter (statuses as of 02/09/2024) [facility]05-10-2023 History of Past illness Narrative* Problem Noted Date Diagnosed Date Resolved Date Mechanical complication of p rosthetic hip implant, initial encounter ([facility]) 03/31/2023 023 Incontinence of urine 11/14/20222021 Generalized abdominal pain 11/12/2022 1 01/17/2022 Numbness and tingling of foot 07/20/2021 03/22/2022 Overview: 07/18/21 EMG/NCS 1. 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 These changes are most severe in degree at the S1 root level where there is moderate active motor axon loss change above and below the knee. At L5 these changes are moderate in degree and active change is only seen below the knee. At L3/4 these changes are moderate to severe in degree but without any evidence of active/ongoing motor fiber loss. Screening studies in the right lower limb show similar, but slightly less significant, active on chronic changes at L5/S1 and moderate chronic (noactive) motor axon loss changes at L3/4 suggesting this is a bilateral process and/or related to significant central canal stenosis. 2. 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 Due to overlapping electrodiagnostic features with #1, precise severity is difficult to determine electrodiagnostically. 04/23/21 bone marrow: does not suggest lymphoplasmacytic lymphoma. 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 04/01/[address] Bhat. ESR 29, CK 554 (weight shirt trimmer). Neg: Lead, B2 microglubulin, B12, CMP, CBC/dif. UPEP+ monoclonal protein 24h w/M spine c/ interp 03/11/21 SPEP + m-protein, K/L ratio 1.17, UPEP negative Bilateral hand, foot and ankle numbness Chronic bilateral low back p ain without sciatica 12/18/2020 03/22/2022 Chronic hepatitis C without hepatic coma 01/05/2019 06/29/2023 Overview: 10/10/2021 Hep C not detectable 06/16/[address] Augustine. Completed treatment. Last Assessment & Plan: Assessment: tx by Dr. Augustine, completed tx 05/2019 Albumin (g/dL) Date Value 11/04/2021 4.3 Bilirubin, Total (mg/dL) Date Value 11/04/2021 0.4 Bilirubin, Conjug (mg/dL) Date Value 09/30/2021 <0.2 Alkaline Phosphatase (U/L) Date Value 11/04/2021 53 AST (U/L) Date Value 11/04/2021 19 ALT (U/L) Date Value 11/04/2021 15 Protein, Total (g/dL) Date Value 11/04/2021 6.7 11/04/2021 7.0 Primary localized osteoarthr osis of shoulder region 12/12/2014 03/22/2022 Shoulder pain, right 09/04/2014 022 Impaired fasting blood sugar 10/02/2010 03/22/2022 Anxiety 09/29/2010 03/22/2022 Diarrhea 07/31/2010 11/16/2022 documented as of this encounter (statuses as of 02/10/2024) [facility]-10-2023 History of Past illness Narrative* Problem Noted Date Diagnosed Date Resolved Date Mechanical complication of p rosthetic hip implant, initial encounter ([facility]) 03/31/2023 023 Incontinence of urine 11/14/20222021 Generalized abdominal pain 11/12/2022 1 01/17/2022 Numbness and tingling of foot 07/20/2021 03/22/2022 Overview: 07/18/21 EMG/NCS 1. 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 These changes are most severe in degree at the S1 root level where there is moderate active motor axon loss change above and below the knee. At L5 these changes are moderate in degree and active change is only seen below the knee. At L3/4 these changes are moderate to severe in degree but without any evidence of active/ongoing motor fiber loss. Screening studies in the right lower limb show similar, but slightly less significant, active on chronic changes at L5/S1 and moderate chronic (noactive) motor axon loss changes at L3/4 suggesting this is a bilateral process and/or related to significant central canal stenosis. 2. 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 Due to overlapping electrodiagnostic features with #1, precise severity is difficult to determine electrodiagnostically. 04/23/21 bone marrow: does not suggest lymphoplasmacytic lymphoma. 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 04/01/[address] Bhat. ESR 29, CK 554 (weight shirt trimmer). Neg: Lead, B2 microglubulin, B12, CMP, CBC/dif. UPEP+ monoclonal protein 24h w/M spine c/ interp 03/11/21 SPEP + m-protein, K/L ratio 1.17, UPEP negative Bilateral hand, foot and ankle numbness Chronic bilateral low back p ain without sciatica 12/18/2020 03/22/2022 Chronic hepatitis C without hepatic coma 01/05/2019 06/29/2023 Overview: 10/10/2021 Hep C not detectable 06/16/[address] Augustine. Completed treatment. Last Assessment & Plan: Assessment: tx by Dr. Augustine, completed tx 05/2019 Albumin (g/dL) Date Value 11/04/2021 4.3 Bilirubin, Total (mg/dL) Date Value 11/04/2021 0.4 Bilirubin, Conjug (mg/dL) Date Value 09/30/2021 <0.2 Alkaline Phosphatase (U/L) Date Value 11/04/2021 53 AST (U/L) Date Value 11/04/2021 19 ALT (U/L) Date Value 11/04/2021 15 Protein, Total (g/dL) Date Value 11/04/2021 6.7 11/04/2021 7.0 Primary localized osteoarthr osis of shoulder region 12/12/2014 03/22/2022 Shoulder pain, right 09/04/2014 022 Impaired fasting blood sugar 10/02/2010 03/22/2022 Anxiety 09/29/2010 03/22/2022 Diarrhea 07/31/2010 11/16/2022 documented as of this encounter (statuses as of 02/14/2024) [facility]05-10-2023 History of Past illness Narrative* Problem Noted Date Diagnosed Date Resolved Date Mechanical complication of p rosthetic hip implant, initial encounter ([facility]) 03/31/2023 023 Incontinence of urine 11/14/20222021 Generalized abdominal pain 11/12/2022 1 01/17/2022 Numbness and tingling of foot 07/20/2021 03/22/2022 Overview: 07/18/21 EMG/NCS 1. 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 These changes are most severe in degree at the S1 root level where there is moderate active motor axon loss change above and below the knee. At L5 these changes are moderate in degree and active change is only seen below the knee. At L3/4 these changes are moderate to severe in degree but without any evidence of active/ongoing motor fiber loss. Screening studies in the right lower limb show similar, but slightly less significant, active on chronic changes at L5/S1 and moderate chronic (noactive) motor axon loss changes at L3/4 suggesting this is a bilateral process and/or related to significant central canal stenosis. 2. 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 Due to overlapping electrodiagnostic features with #1, precise severity is difficult to determine electrodiagnostically. 04/23/21 bone marrow: does not suggest lymphoplasmacytic lymphoma. 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 04/01/[address] Bhat. ESR 29, CK 554 (weight shirt trimmer). Neg: Lead, B2 microglubulin, B12, CMP, CBC/dif. UPEP+ monoclonal protein 24h w/M spine c/ interp 03/11/21 SPEP + m-protein, K/L ratio 1.17, UPEP negative Bilateral hand, foot and ankle numbness Chronic bilateral low back p ain without sciatica 12/18/2020 03/22/2022 Chronic hepatitis C without hepatic coma 01/05/2019 06/29/2023 Overview: 10/10/2021 Hep C not detectable 06/16/[address] Augustine. Completed treatment. Last Assessment & Plan: Assessment: tx by Dr. Augustine, completed tx 05/2019 Albumin (g/dL) Date Value 11/04/2021 4.3 Bilirubin, Total (mg/dL) Date Value 11/04/2021 0.4 Bilirubin, Conjug (mg/dL) Date Value 09/30/2021 <0.2 Alkaline Phosphatase (U/L) Date Value 11/04/2021 53 AST (U/L) Date Value 11/04/2021 19 ALT (U/L) Date Value 11/04/2021 15 Protein, Total (g/dL) Date Value 11/04/2021 6.7 11/04/2021 7.0 Primary localized osteoarthr osis of shoulder region 12/12/2014 03/22/2022 Shoulder pain, right 09/04/2014 022 Impaired fasting blood sugar 10/02/2010 03/22/2022 Anxiety 09/29/2010 03/22/2022 Diarrhea 07/31/2010 11/16/2022 documented as of this encounter (statuses as of 02/15/2024) [facility]-10[facility] History of Past illness Narrative* Problem Noted Date Diagnosed Date Resolved Date Mechanical complication of p rosthetic hip implant, initial encounter (HCC) 03/31/2023 023 Incontinence of urine 11/14/20222021 Generalized abdominal pain 11/12/2022 1 01/17/2022 Numbness and tingling of foot 07/20/2021 03/22/2022 Overview: 07/18/21 EMG/NCS 1. 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 These changes are most severe in degree at the S1 root level where there is moderate active motor axon loss change above and below the knee. At L5 these changes are moderate in degree and active change is only seen below the knee. At L3/4 these changes are moderate to severe in degree but without any evidence of active/ongoing motor fiber loss. Screening studies in the right lower limb show similar, but slightly less significant, active on chronic changes at L5/S1 and moderate chronic (noactive) motor axon loss changes at L3/4 suggesting this is a bilateral process and/or related to significant central canal stenosis. 2. 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 Due to overlapping electrodiagnostic features with #1, precise severity is difficult to determine electrodiagnostically. 04/23/21 bone marrow: does not suggest lymphoplasmacytic lymphoma. 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 04/01/[address] Bhat. ESR 29, CK 554 (weight shirt trimmer). Neg: Lead, B2 microglubulin, B12, CMP, CBC/dif. UPEP+ monoclonal protein 24h w/M spine c/ interp 03/11/21 SPEP + m-protein, K/L ratio 1.17, UPEP negative Bilateral hand, foot and ankle numbness Chronic bilateral low back p ain without sciatica 12/18/2020 03/22/2022 Chronic hepatitis C without hepatic coma 01/05/2019 06/29/2023 Overview: 10/10/2021 Hep C not detectable 06/16/[address] Augustine. Completed treatment. Last Assessment & Plan: Assessment: tx by Dr. Augustine, completed tx 05/2019 Albumin (g/dL) Date Value 11/04/2021 4.3 Bilirubin, Total (mg/dL) Date Value 11/04/2021 0.4 Bilirubin, Conjug (mg/dL) Date Value 09/30/2021 <0.2 Alkaline Phosphatase (U/L) Date Value 11/04/2021 53 AST (U/L) Date Value 11/04/2021 19 ALT (U/L) Date Value 11/04/2021 15 Protein, Total (g/dL) Date Value 11/04/2021 6.7 11/04/2021 7.0 Primary localized osteoarthr osis of shoulder region 12/12/2014 03/22/2022 Shoulder pain, right 09/04/2014 022 Impaired fasting blood sugar 10/02/2010 03/22/2022 Anxiety 09/29/2010 03/22/2022 Diarrhea 07/31/2010 11/16/2022 documented as of this encounter (statuses as of 02/25/2024) [facility] History of Past illness Narrative* Problem Noted Date Diagnosed Date Resolved Date Mechanical complication of p rosthetic hip implant, initial encounter ([facility]) 03/31/2023 023 Incontinence of urine 11/14/20222021 Generalized abdominal pain 11/12/2022 1 01/17/2022 Numbness and tingling of foot 07/20/2021 03/22/2022 Overview: 07/18/21 EMG/NCS 1. 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 These changes are most severe in degree at the S1 root level where there is moderate active motor axon loss change above and below the knee. At L5 these changes are moderate in degree and active change is only seen below the knee. At L3/4 these changes are moderate to severe in degree but without any evidence of active/ongoing motor fiber loss. Screening studies in the right lower limb show similar, but slightly less significant, active on chronic changes at L5/S1 and moderate chronic (noactive) motor axon loss changes at L3/4 suggesting this is a bilateral process and/or related to significant central canal stenosis. 2. 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 Due to overlapping electrodiagnostic features with #1, precise severity is difficult to determine electrodiagnostically. 04/23/21 bone marrow: does not suggest lymphoplasmacytic lymphoma. 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 04/01/[address] Bhat. ESR 29, CK 554 (weight shirt trimmer). Neg: Lead, B2 microglubulin, B12, CMP, CBC/dif. UPEP+ monoclonal protein 24h w/M spine c/ interp 03/11/21 SPEP + m-protein, K/L ratio 1.17, UPEP negative Bilateral hand, foot and ankle numbness Chronic bilateral low back p ain without sciatica 12/18/2020 03/22/2022 Chronic hepatitis C without hepatic coma 01/05/2019 06/29/2023 Overview: 10/10/2021 Hep C not detectable 06/16/[address] Augustine. Completed treatment. Last Assessment & Plan: Assessment: tx by Dr. Augustine, completed tx 05/2019 Albumin (g/dL) Date Value 11/04/2021 4.3 Bilirubin, Total (mg/dL) Date Value 11/04/2021 0.4 Bilirubin, Conjug (mg/dL) Date Value 09/30/2021 <0.2 Alkaline Phosphatase (U/L) Date Value 11/04/2021 53 AST (U/L) Date Value 11/04/2021 19 ALT (U/L) Date Value 11/04/2021 15 Protein, Total (g/dL) Date Value 11/04/2021 6.7 11/04/2021 7.0 Primary localized osteoarthr osis of shoulder region 12/12/2014 03/22/2022 Shoulder pain, right 09/04/2014 022 Impaired fasting blood sugar 10/02/2010 03/22/2022 Anxiety 09/29/2010 03/22/2022 Diarrhea 07/31/2010 11/16/2022 documented as of this encounter (statuses as of 03/03/2024) [facility] History of Past illness Narrative* Problem Noted Date Diagnosed Date Resolved Date Mechanical complication of p rosthetic hip implant, initial encounter (HCC) 03/31/2023 023 Incontinence of urine 11/14/20222021 Generalized abdominal pain 11/12/2022 1 01/17/2022 Numbness and tingling of foot 07/20/2021 03/22/2022 Overview: 07/18/21 EMG/NCS 1. 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 These changes are most severe in degree at the S1 root level where there is moderate active motor axon loss change above and below the knee. At L5 these changes are moderate in degree and active change is only seen below the knee. At L3/4 these changes are moderate to severe in degree but without any evidence of active/ongoing motor fiber loss. Screening studies in the right lower limb show similar, but slightly less significant, active on chronic changes at L5/S1 and moderate chronic (noactive) motor axon loss changes at L3/4 suggesting this is a bilateral process and/or related to significant central canal stenosis. 2. 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 Due to overlapping electrodiagnostic features with #1, precise severity is difficult to determine electrodiagnostically. 04/23/21 bone marrow: does not suggest lymphoplasmacytic lymphoma. 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 04/01/[address] Bhat. ESR 29, CK 554 (weight shirt trimmer). Neg: Lead, B2 microglubulin, B12, CMP, CBC/dif. UPEP+ monoclonal protein 24h w/M spine c/ interp 03/11/21 SPEP + m-protein, K/L ratio 1.17, UPEP negative Bilateral hand, foot and ankle numbness Chronic bilateral low back p ain without sciatica 12/18/2020 03/22/2022 Chronic hepatitis C without hepatic coma 01/05/2019 06/29/2023 Overview: 10/10/2021 Hep C not detectable 06/16/[address] Augustine. Completed treatment. Last Assessment & Plan: Assessment: tx by Dr. Augustine, completed tx 05/2019 Albumin (g/dL) Date Value 11/04/2021 4.3 Bilirubin, Total (mg/dL) Date Value 11/04/2021 0.4 Bilirubin, Conjug (mg/dL) Date Value 09/30/2021 <0.2 Alkaline Phosphatase (U/L) Date Value 11/04/2021 53 AST (U/L) Date Value 11/04/2021 19 ALT (U/L) Date Value 11/04/2021 15 Protein, Total (g/dL) Date Value 11/04/2021 6.7 11/04/2021 7.0 Primary localized osteoarthr osis of shoulder region 12/12/2014 03/22/2022 Shoulder pain, right 09/04/2014 022 Impaired fasting blood sugar 10/02/2010 03/22/2022 Anxiety 09/29/2010 03/22/2022 Diarrhea 07/31/2010 11/16/2022 documented as of this encounter (statuses as of 03/07/2024) [facility] History of Past illness Narrative* Problem Noted Date Diagnosed Date Resolved Date Mechanical complication of p rosthetic hip implant, initial encounter ([facility]) 03/31/2023 023 Incontinence of urine 11/14/20222021 Generalized abdominal pain 11/12/2022 1 01/17/2022 Numbness and tingling of foot 07/20/2021 03/22/2022 Overview: 07/18/21 EMG/NCS 1. 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 These changes are most severe in degree at the S1 root level where there is moderate active motor axon loss change above and below the knee. At L5 these changes are moderate in degree and active change is only seen below the knee. At L3/4 these changes are moderate to severe in degree but without any evidence of active/ongoing motor fiber loss. Screening studies in the right lower limb show similar, but slightly less significant, active on chronic changes at L5/S1 and moderate chronic (noactive) motor axon loss changes at L3/4 suggesting this is a bilateral process and/or related to significant central canal stenosis. 2. 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 Due to overlapping electrodiagnostic features with #1, precise severity is difficult to determine electrodiagnostically. 04/23/21 bone marrow: does not suggest lymphoplasmacytic lymphoma. 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 04/01/[address] Bhat. ESR 29, CK 554 (weight shirt trimmer). Neg: Lead, B2 microglubulin, B12, CMP, CBC/dif. UPEP+ monoclonal protein 24h w/M spine c/ interp 03/11/21 SPEP + m-protein, K/L ratio 1.17, UPEP negative Bilateral hand, foot and ankle numbness Chronic bilateral low back p ain without sciatica 12/18/2020 03/22/2022 Chronic hepatitis C without hepatic coma 01/05/2019 06/29/2023 Overview: 10/10/2021 Hep C not detectable 06/16/[address] Augustine. Completed treatment. Last Assessment & Plan: Assessment: tx by Dr. Augustine, completed tx 05/2019 Albumin (g/dL) Date Value 11/04/2021 4.3 Bilirubin, Total (mg/dL) Date Value 11/04/2021 0.4 Bilirubin, Conjug (mg/dL) Date Value 09/30/2021 <0.2 Alkaline Phosphatase (U/L) Date Value 11/04/2021 53 AST (U/L) Date Value 11/04/2021 19 ALT (U/L) Date Value 11/04/2021 15 Protein, Total (g/dL) Date Value 11/04/2021 6.7 11/04/2021 7.0 Primary localized osteoarthr osis of shoulder region 12/12/2014 03/22/2022 Shoulder pain, right 09/04/2014 022 Impaired fasting blood sugar 10/02/2010 03/22/2022 Anxiety 09/29/2010 03/22/2022 Diarrhea 07/31/2010 11/16/2022 documented as of this encounter (statuses as of 03/10/2024) [facility]05-10-2023 History of Present illness Narrative* Gudelia Samuel MD - 03/31/2023 10:26 AM EDT ORTHOPAEDIC OFFICE NOTE CHIEF COMPLAINT: Follow-up right periprosthetic fracture HISTORY OF PRESENT ILLNESS: Miroslava Peralta is a 72 year old male who presents for Follow-up evaluation of right periprosthetic fracture fixated on 01/11/2023. This was complicated by early dislocation and subsequent revision. Since that time he said multiple dislocation events. Most recently last week. He presents today without significant pain. He has been more or less bedbound due to concerns about repeated dislocation. Hedenies current fevers chills nausea vomiting weight loss fatigue or malaise. Reviewed nursing note and current pain scale. 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 SKIN BIOPSY HX FAMILY HISTORY Problem Relation Age of Onset Cancer Mother breast cancer Hypertension Mother None Father father in train accident at yuni age Hypertension Sister Social History Tobacco Use Smoking status: Former Packs/day: 2.00 Years: 23.00 Pack years: 46.00 Types: Cigarettes Quit date: 11/22/1992 Years since quittin.3 Smokeless tobacco: Never Vaping Use Vaping Use: Never used Substance Use Topics Alcohol use: Not Currently Comment: quit in 1991. Drug use: No Comment: Quit drugs in . MEDICATIONS: Current Outpatient Medications Medication Sig amoxicillin-clavulanic acid (AUGMENTIN) 875-125 mg per tablet Take 1 tablet by mouth twice daily. oxyCODONE IR (ROXICODONE) 5 mg immediate release tablet Take 5 mg by mouth every 6 hours as needed. polyethylene glycol 3350 17 gram packet Take 17 g by mouth once daily. Dissolve dose in 4 - 8 ounces of liquid and take as directed. meloxicam (MOBIC) 15 mg tablet Take 15 mg by mouth once daily. Melatonin 5 mg cap Take by mouth daily at bedtime. menthol/camphor (BIOFREEZE TOPICAL) Apply to affected area three times daily. Apply to posterior hand and right scapula for pain and order to apply every four hours as needed for pain not to exceed more than four total applications per day. tamsulosin (FLOMAX) 0.4 mg Take 1 capsule by mouth daily at bedtime. senna (SENOKOT) 8.6 mg tab Take 1 tablet by mouth twice daily as needed for constipation. naproxen (NAPROSYN) 500 mg tablet Take 500 mg by mouth once daily. gabapentin (NEURONTIN) 300 mg capsule Take 2 capsules by mouth three times daily for 90 days. acetaminophen (TYLENOL) 325 mg tablet Take 2 tablets by mouth every 6 hours as needed (mild pain orfever >100). (Patient taking differently: Take 650 mg by mouth every 6 hours as needed (mild pain or fever >100). 500 MG- two by mouth every eight hours as needed) amLODIPine (NORVASC) 10 mg tablet Take 1 tablet by mouth once daily. traZODone (DESYREL) 150 mg tablet Take 1 tablet by mouth daily at bedtime. lisinopril (ZESTRIL, PRINIVIL) 20 mg tablet Take 1 tablet by mouth once daily. No current facility-administered medications for this visit. ALLERGIES: ALLERGIES Allergen Reactions Cardizem [Diltiazem* Other: See Comments panic attack Diovan [Valsartan] GI Upset Caused nausea Hyzaar [Losartan-Hy* Other: See Comments Mood change Lopressor [Metoprol* Other: See Comments no energy, wiped pt out PHYSICAL EXAMINATION: Resp 20 Ht 5' 11 (1.80m) Wt 222 lb (100.7kg) BMI 30.98 kg/(m^2). General Appearance: Well appearing, alert, in no acute distress, well-hydrated, well nourished. Skin: Skin color, texture, turgor normal, no suspicious rashes or lesions. Psych: Patient is alert and oriented to person, time and place. Mood and affect are normal. Respiratory: Breathing is symmetric and unlabored Gait: The patient was examined in a wheelchair today. Extremities: Right lower extremity is examined. Long laterally based incision is healing well without drainage or sign of infection. There is moderate swelling and ecchymosis along the thigh. Staplesare in place. There is moderate tenderness palpation along the length of the thigh. Gentle range ofmotion of the hip is relatively pain-free. Lymphatic: There is no palpable lymphadenopathy Peripheral Pulses: Normal. Neurologic: Bilateral lower extremities were examined. There is 5/5 strength with hip flexion, kneeextension, dorsiflexion, EHL, plantar flexion. Sensation intact in all nerve dermatomes IMAGES: Physician office building radiographs, 03/31/2023. AP and lateral views of the right hip andfemur were obtained and reviewed. These demonstrate periprosthetic fracture fixated with cables andlong diaphyseal fitting stem. There does appear to be some shortening of the right side compared tothe contralateral side although the x-ray is slightly different and angulation. Overall there does not appear to be any subsidence of the stem itself. There does appear to be progressive healing around the greater trochanter. There is no destructive lesion appreciable. Soft tissues otherwise unremarkable. Plan ASSESSMENT AND PLAN: 1. Dislocation of hip joint prosthesis, subsequent encounter - ICD9: V58.89, ICD10: T84.029D, Z96.649 (primary diagnosis) 2. 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, subsequent encounter - ICD9: V54.29, ICD10: M97.8XXD, Z96.649 Functional Plan: Patient is a 72-year-old male presenting for follow-up evaluation of right periprosthetic femur fracture fixated in late December and then complicated by early prosthetic hip dislocation. Currently he is doing okay but he is had multiple dislocation events. I discussed this with him at length. At this point time he would like to proceed with revision surgery. We will plan to directly admit him and try to get him fixed within the next couple days given his significant instability. All of his questions were answered satisfactorily. He expressed understanding of and agreement with the treatment plan. Return After Surgery. Gudelia Samuel MD [facility] History of Present illness Narrative* Gudelia Samuel MD - 03/17/2023 9:36 AM EDT ORTHOPAEDIC OFFICE NOTE CHIEF COMPLAINT: Follow-up right periprosthetic femur fracture HISTORY OF PRESENT ILLNESS: Miroslava Peralta is a 72 year old male who presents for Follow-up evaluation after open reduction internal fixation of right periprosthetic femur fracture and subsequent revision for instability on 01/11/2023. Overall the patient was doing very well. He was having minimal pain at the leg and ambulating with the assistance of a walker. He reports that last week while getting out of his wheelchair he felt severe pain was found to have a dislocation of the right hip. He presented to outside ER and was closed reduced and sent home. He did have another episode of instability the following day gettingout of the wheelchair again. Today he reports that his pain is controlled. He has been nonweightbear ing since his last dislocation. He denies current fevers chills nausea vomiting weight loss fatigueor malaise. Reviewed nursing note and current pain scale. 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 SKIN BIOPSY HX FAMILY HISTORY Problem Relation Age of Onset Cancer Mother breast cancer Hypertension Mother None Father father in train accident at yuni age Hypertension Sister Social History Tobacco Use Smoking status: Former Packs/day: 2.00 Years: 23.00 Pack years: 46.00 Types: Cigarettes Quit date: 11/22/1992 Years since quittin.3 Smokeless tobacco: Never Vaping Use Vaping Use: Never used Substance Use Topics Alcohol use: Not Currently Comment: quit in 1991. Drug use: No Comment: Quit drugs in . MEDICATIONS: Current Outpatient Medications Medication Sig amoxicillin-clavulanic acid (AUGMENTIN) 875-125 mg per tablet Take 1 tablet by mouth twice daily. oxyCODONE IR (ROXICODONE) 5 mg immediate release tablet Take 5 mg by mouth every 6 hours as needed. polyethylene glycol 3350 17 gram packet Take 17 g by mouth once daily. Dissolve dose in 4 - 8 ounces of liquid and take as directed. meloxicam (MOBIC) 15 mg tablet Take 15 mg by mouth once daily. Melatonin 5 mg cap Take by mouth daily at bedtime. menthol/camphor (BIOFREEZE TOPICAL) Apply to affected area three times daily. Apply to posterior hand and right scapula for pain and order to apply every four hours as needed for pain not to exceed more than four total applications per day. tamsulosin (FLOMAX) 0.4 mg Take 1 capsule by mouth daily at bedtime. senna (SENOKOT) 8.6 mg tab Take 1 tablet by mouth twice daily as needed for constipation. naproxen (NAPROSYN) 500 mg tablet Take 500 mg by mouth once daily. gabapentin (NEURONTIN) 300 mg capsule Take 2 capsules by mouth three times daily for 90 days. acetaminophen (TYLENOL) 325 mg tablet Take 2 tablets by mouth every 6 hours as needed (mild pain orfever >100). (Patient taking differently: Take 650 mg by mouth every 6 hours as needed (mild pain or fever >100). 500 MG- two by mouth every eight hours as needed) amLODIPine (NORVASC) 10 mg tablet Take 1 tablet by mouth once daily. traZODone (DESYREL) 150 mg tablet Take 1 tablet by mouth daily at bedtime. lisinopril (ZESTRIL, PRINIVIL) 20 mg tablet Take 1 tablet by mouth once daily. No current facility-administered medications for this visit. ALLERGIES: ALLERGIES Allergen Reactions Cardizem [Diltiazem* Other: See Comments panic attack Diovan [Valsartan] GI Upset Caused nausea Hyzaar [Losartan-Hy* Other: See Comments Mood change Lopressor [Metoprol* Other: See Comments no energy, wiped pt out PHYSICAL EXAMINATION: Resp 20 Ht 5' 10 (1.78m) Wt 221 lb (100.2kg) BMI 31.71 kg/(m^2). General Appearance: Well appearing, alert, in no acute distress, well-hydrated, well nourished. Skin: Skin color, texture, turgor normal, no suspicious rashes or lesions. Psych: Patient is alert and oriented to person, time and place. Mood and affect are normal. Respiratory: Breathing is symmetric and unlabored Gait: The patient was examined in a wheelchair today. Extremities: Right lower extremity is examined. Long laterally based incision is healing well without drainage or sign of infection. There is moderate swelling and ecchymosis along the thigh. Staplesare in place. There is moderate tenderness palpation along the length of the thigh. Gentle range ofmotion of the hip is relatively pain-free. Lymphatic: There is no palpable lymphadenopathy Peripheral Pulses: Normal. Neurologic: Bilateral lower extremities were examined. There is 5/5 strength with hip flexion, kneeextension, dorsiflexion, EHL, plantar flexion. Sensation intact in all nerve dermatomes IMAGES: Physician office building radiographs, 03/17/2023. AP and lateral views of the right hip andfemur were obtained and reviewed. These demonstrate right total hip arthroplasty with long Kapseal fitting stem. There is multiple cables around the femur. Comminuted fracture of the greater trochanter. Overall alignment appears stable. There does not appear to be any significant stem subsidence. There appears to be some early callus formation around the greater trochanter. There is perhaps slight shortening on the right side compared to the left. Soft tissues otherwise unremarkable. Plan ASSESSMENT AND PLAN: 1. 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, subsequent encounter - ICD9: V54.29, ICD10: M97.8XXD, Z96.649 (primary diagnosis) 2. Dislocation of hip joint prosthesis, subsequent encounter - ICD9: V58.89, ICD10: T84.029D, Z96.649 Functional Plan: Patient is a 72-year-old male presenting for follow-up evaluation of right periprosthetic proximal femur fracture and subsequent revision for instability on 01/11/2023. Overall he wasdoing very well until recent episode of instability. This was reduced at an outside ER. Radiographs today are stable. I discussed this with him at length. Think is likely ongoing instability is probably secondary to soft tissue tensioning issue. We discussed treatment with a brace and careful posterior hip precautions versus revision surgery. At this point time he would like to proceed with conservative treatment. I will order a hip abduction brace to be worn at all times. He can be weightbearing as tolerated in the hip abduction brace with restrictions up to 90 degrees of forward flexion and30 degrees of external rotation. We discussed follow-up. I did suggest short-term follow-up and he prefer to space it out is getting here is difficult for him. I will see him back in 6 weeks for repeat evaluation and radiographs less that should arise sooner. Advised him that should he have any more episodes of instability at 10 before his next follow-up visit. He expressed understanding of and agreement with the treatment plan. Return in about 6 weeks (around 04/28/2023). Gudelia Samuel MD documented [facility] encounterF[facility]04-21-[facility]23 Miscellaneous Notes* Telephone Encounter - Hui Rocha - 03/12/2023 3:00 PM EDT Called and left message for Marlin [facility] to call me back and reschedule appointment with Dr. Samuel for 1st Post Op. Hui Rocha March 12, 2023 3:07 PM * Telephone Encounter - Hui Rocha - 03/12/2023 3:00 PM EDT ----- Message from Carmela Herron sent at 03/12/2023 1:31 PM EDT ----- Regarding: Orthopedics/Lizzie Hip/Post-Op Within 90-Day Period/CANCEL-RESCHEDULE Contact: Subject Line Format: Orthopedics / [Provider Name or Open & Body Part ] / [Issue] Patient has been identified by name and Date of (Y/N): y Patient: Miroslava Peralta Date of : 1950 Previous Provider Seen: Dr Samuel Body Part(s) Identified: R hip Diagnosis/Reason For Visit: SNF unable to secure transport for patient's 03/15/23 post-op appt w/ Marybeth and are wondering if it could be rescheduled the following day, 03/16/23, in the morning. Reason for the call/escalation: per sched tool If reason for call/escalation is discharge from ED/ER or Hospital, which facility was the patient seen at: n/a Was an appointment scheduled (Y/N): n Person calling if other than patient: Marlin (transportation maintenance operator @ [place]) Return call to if other than patient: same Best contact number: [phone] Thank you, Carmela Germaine March 12, 2023 1:32 PM documented in this encounterFlower Hospital04-20-2023 Miscellaneous Notes* Telephone Encounter - Hui Rocha - 03/11/2023 4:25 PM EDT Called [facility] and spoke to Jocelin, advised Dr. Samuel was called and told patient dislocated R hip again. Jocelin stated this is correct, and agreed to scheduled appointment for patient with Dr. Samuel. Appointment scheduled for 03/15/23 10:30 am POB. Jocelin agreeable to appointment date, time, location and will have patient transported by facility. Hui Rocha March 11, 2023 4:27 PM documented in this encounterFlower Hospital04-06-2023 History of Present illness Narrative* Gudelia Samuel MD - 02/25/2023 1:37 AM EDT Images from the original note were not included. ORTHOPAEDIC OFFICE NOTE CHIEF COMPLAINT: Follow-up right periprosthetic femur fracture HISTORY OF PRESENT ILLNESS: Miroslava Prealta is a 72 year old male who presents for Follow-up evaluation of revision right total of arthroplasty for periprosthetic femur fracture on 01/11/2023. Overall patient is doing well. He reports he is not having any pain. He has been compliant with partial weightbearing walker. She is placing 40 pounds of weight on the right lower extremity. He is working physical therapy at the rehab facility. He denies current fevers chills nausea vomiting weight loss fatigue or malaise. Reviewed nursing note and current pain scale. 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 SKIN BIOPSY HX FAMILY HISTORY Problem Relation Age of Onset Cancer Mother breast cancer Hypertension Mother None Father father in train accident at yuni age Hypertension Sister Social History Tobacco Use Smoking status: Former Packs/day: 2.00 Years: 23.00 Pack years: 46.00 Types: Cigarettes Quit date: 11/22/1992 Years since quittin.2 Smokeless tobacco: Never Vaping Use Vaping Use: Never used Substance Use Topics Alcohol use: Not Currently Comment: quit in 1991. Drug use: No Comment: Quit drugs in . MEDICATIONS: Current Outpatient Medications Medication Sig amoxicillin-clavulanic acid (AUGMENTIN) 875-125 mg per tablet Take 1 tablet by mouth twice daily. oxyCODONE IR (ROXICODONE) 5 mg immediate release tablet Take 5 mg by mouth every 6 hours as needed. polyethylene glycol 3350 17 gram packet Take 17 g by mouth once daily. Dissolve dose in 4 - 8 ounces of liquid and take as directed. meloxicam (MOBIC) 15 mg tablet Take 15 mg by mouth once daily. Melatonin 5 mg cap Take by mouth daily at bedtime. menthol/camphor (BIOFREEZE TOPICAL) Apply to affected area three times daily. Apply to posterior hand and right scapula for pain and order to apply every four hours as needed for pain not to exceed more than four total applications per day. tamsulosin (FLOMAX) 0.4 mg Take 1 capsule by mouth daily at bedtime. senna (SENOKOT) 8.6 mg tab Take 1 tablet by mouth twice daily as needed for constipation. naproxen (NAPROSYN) 500 mg tablet Take 500 mg by mouth once daily. acetaminophen (TYLENOL) 325 mg tablet Take 2 tablets by mouth every 6 hours as needed (mild pain orfever >100). (Patient taking differently: Take 650 mg by mouth every 6 hours as needed (mild pain or fever >100). 500 MG- two by mouth every eight hours as needed) amLODIPine (NORVASC) 10 mg tablet Take 1 tablet by mouth once daily. traZODone (DESYREL) 150 mg tablet Take 1 tablet by mouth daily at bedtime. gabapentin (NEURONTIN) 300 mg capsule Take 2 capsules by mouth three times daily for 90 days. lisinopril (ZESTRIL, PRINIVIL) 20 mg tablet Take 1 tablet by mouth once daily. No current facility-administered medications for this visit. ALLERGIES: ALLERGIES Allergen Reactions Cardizem [Diltiazem* Other: See Comments panic attack Diovan [Valsartan] GI Upset Caused nausea Hyzaar [Losartan-Hy* Other: See Comments Mood change Lopressor [Metoprol* Other: See Comments no energy, wiped pt out PHYSICAL EXAMINATION: Resp 16 Ht 5' 10 (1.78m) Wt 218 lb (98.9kg) BMI 31.28 kg/(m^2). General Appearance: Well appearing, alert, in no acute distress, well-hydrated, well nourished. Skin: Skin color, texture, turgor normal, no suspicious rashes or lesions. Psych: Patient is alert and oriented to person, time and place. Mood and affect are normal. Respiratory: Breathing is symmetric and unlabored Gait: The patient was examined in a wheelchair today. Extremities: Right lower extremity is examined. Long laterally based incision is healing well without drainage or sign of infection. There is moderate swelling and ecchymosis along the thigh. Staplesare in place. There is moderate tenderness palpation along the length of the thigh. Gentle range ofmotion of the hip is relatively pain-free. Lymphatic: There is no palpable lymphadenopathy Peripheral Pulses: Normal. Neurologic: Bilateral lower extremities were examined. There is 5/5 strength with hip flexion, kneeextension, dorsiflexion, EHL, plantar flexion. Sensation intact in all nerve dermatomes IMAGES: Physician office building radiographs, 02/24/2023. AP view the pelvis as well as AP and lateral views of the right femur were obtained reviewed. These demonstrate right total hip arthroplasty with longstem femoral component cerclage wires. Overall alignment is stable. There is no sign of loosening or failure of hardware. Fracture remains well aligned. Soft tissues otherwise unremarkable. Plan ASSESSMENT AND PLAN: 1. 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, subsequent encounter - ICD9: V54.29, ICD10: M97.8XXD, Z96.649 Functional Plan: Patient is a 72-year-old male presenting for follow-up evaluation after revision right total hip arthroplasty for periprosthetic femur fracture on 01/11/2023. Overall he is doing well. He states is not having any pain to the thigh. Radiographs today are stable. I discussed this withhim at length. This point time he can progress himself to weightbearing as tolerated in the right lower extremity. I will see him back in 8 weeks for repeat evaluation and radiographs less issue should arise sooner. All of his questions were answered satisfactorily. He expressed understanding of and agreement with the treatment plan. Return in about 8 weeks (around 04/21/2023). Gudelia Samuel MD [facility] History of Present illness Narrative* Dany Gomez PA-C - 02/16/2023 3:44 PM EDT Images from the original note were not included. [facility] NEW CONSULT PATIENT CLINIC NOTE SERVICE DATE: 02/16/2023 SERVICE TIME: 3:44 PM NAME: Miroslava Peralta CHIEF COMPLAINT: UTI HISTORY OF PRESENT ILLNESS: Miroslava Peralta is a 72 year old male with PMH including HTN, Chronic Pain and BPH presenting for New Patient Consult for UTI follow up The patient reports he feels like he is emptying and yet has urinary urgency and frequency, he is continuing to take daily Oxycodone per patient and chart Which can cause urine retention and UTI due to stagnant urine. I recommend trial of Flomax to help him empty his bladder better and try to avoid over flow incontinence and UTI's LUTS: DYSURIA: yes URGENCY: Yes FREQUENCY:6 per day NOCTURIA: 2 per night STRAINING TO VOID: Yes EMPTIES COMPLETELY: No UTI: 1 past 12 months - E coli - 02/04/2023 Other symptoms: LABS: Testosterone (ng/dL) Date Value 12/07/2018 310 10/03/2013 327 08/03/2012 396 No results found for: TESTFREE PSA Screening (ng/mL) Date Value 10/03/2013 2.04 08/03/2012 1.83 Hematocrit (%) Date Value 01/14/2023 23.9 01/13/2023 25.1 01/12/2023 26.2 11/04/2021 44.6 09/30/2021 44.5 04/23/2021 41.5 PSA Screening (ng/mL) Date Value 10/03/2013 2.04 08/03/2012 1.83 Creatinine Date Value Ref Range Status 01/14/2023 0.77 0.73 - 1.22 mg/dL Final 01/13/2023 0.82 0.73 - 1.22 mg/dL Final 01/12/2023 0.87 0.73 - 1.22 mg/dL Final 01/11/2023 0.95 0.73 - 1.22 mg/dL Final MEDICATIONS: senna (SENOKOT) 8.6 mg tab Take 1 tablet by mouth twice daily as needed for constipation. gabapentin (NEURONTIN) 300 mg capsule Take 2 capsules by mouth three times daily for 90 days. acetaminophen (TYLENOL) 325 mg tablet Take 2 tablets by mouth every 6 hours as needed (mild pain orfever >100). (Patient taking differently: Take 650 mg by mouth every 6 hours as needed (mild pain or fever >100). 500 MG- two by mouth every eight hours as needed) amLODIPine (NORVASC) 10 mg tablet Take 1 tablet by mouth once daily. traZODone (DESYREL) 150 mg tablet Take 1 tablet by mouth daily at bedtime. lisinopril (ZESTRIL, PRINIVIL) 20 mg tablet Take 1 tablet by mouth once daily. oxyCODONE IR (ROXICODONE) 5 mg immediate release tablet naproxen (NAPROSYN) 500 mg tablet Take 500 mg by mouth once daily. 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 SKIN BIOPSY HX FAMILY HISTORY: FAMILY HISTORY Problem Relation Age of Onset Cancer Mother breast cancer Hypertension Mother None Father father in train accident at yuni age Hypertension Sister SOCIAL HISTORY: Social Connections: Not on file REVIEW OF SYSTEMS: GENERAL: No fever, chills, weight loss, or fatigue. ENMT: Negative CARDIOVASCULAR:NO CHEST PAIN, PALPITATIONS, ANKLE EDEMA RESPIRATORY: No chronic cough, wheezing, dyspnea, hemoptysis. GENITOURINARY: SEE HPI MUSCULOSKELETAL:NO CHRONIC BACK PAIN, ARTHRITIS, CHRONIC NECK PAIN SKIN: NO VARICOSE VEINS, RASH, ABNORMAL ITCHING HEME/LYMPH/IMMUNE:Negative for prolonged bleeding, bruising easily or swollen nodes NEUROLOGICAL: NO HEADACHES, NUMBNESS, SEIZURES, STROKE DIABETES: No All other systems reviewed and are negative PHYSICAL EXAMINATION: Blood pressure 136/80, pulse 84, temperature 36.3 C (97.4 F), temperature source Temporal, resp. rate 14, height 177.8 cm (5' 10 ), weight 98.9 kg (218 lb), SpO2 94 %. GENERAL: WNL nutrition, no deformities, healthy appearing NEURO: Awake, alert and oriented x 3 and Normal gait PSYCH: No signs of depression, anxiety, or agitation ENMT (Ear, Nose, Mouth, Throat): No masses, adenopathy, icterus. Thyroid nonpalpable RESP: NL effort, no retractions or purse-lip breathing. CV: No extremity swelling, varices, edema, pallor, erythema GASTROINTESTINAL: Soft, nontender, nondistended, no masses. HERNIAS: None SKIN: No rash, lesions No palpable lymphadenopathy MUSCULOSKELETAL: Extremities normal. No deformities, edema, clubbing or skin discoloration. PROBLEM LIST REVIEW: Yes LABS: Results for orders placed or performed in visit on 02/16/23 UA DIP, URINE (POC) Result Value Ref Range GLUCOSE UA (POCT) Negative Negative mg/dL BILIRUBIN UA (POCT) Negative Negative KETONE UA (POCT) Negative Negative mg/dL SPECIFIC GRAVITY UA (POCT) 1.020 1.005 - 1.030 HEMOGLOBIN/BLOOD UA (POCT) Moderate (A) Negative PH UA (POCT) 7.0 4.5 - 8.0 PROTEIN UA (POCT) 100 (A) Negative mg/dL UROBILINOGEN UA (POCT) 0.2 Normal E.U./dL NITRITE UA (POCT) Positive (A) Negative LEUKOCYTES UA (POCT) Large (A) Negative COLOR UA (POCT) Light yellow CLARITY UA (POCT) Cloudy Urine Culture: Pending PROCEDURES: PVR: 105 ml IMAGING: IMPRESSION/PLAN: 72 year old male with 1. 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 - ICD9: 600.01, 788.21, ICD10: N40.1, R39.14 (primary diagnosis) 2. Overflow incontinence of urine - ICD9: 788.38, ICD10: N39.490 3. Dysuria - ICD9: 788.1, ICD10: R30.0 > Urine Culture > Trial of Flomax to help him empty bladder completely I spent a total of 30 minutes on the date of the service which included preparing to see the patient, face to face patient care, completing clinical documentation, obtaining and/or reviewing separately obtained history, performing a medically appropriate examination, counseling and educating the pat ient/family/caregiver, ordering medications, tests, or procedures, and care coordination. KARINA Alaniz, MT, BEVERLY * Pamelaniyah Rashid LPN - 02/16/2023 3:23 PM EDT Verified name and date of . CC Post Void Residual HPI: Miroslava Peralta is a 72 year old male. The patient is here now for an appointment with KARINA Alaniz, NINA, PA-COV. Procedure: Explained procedure to patient and verbalizes understanding. Performed a PVR. Patient urinated and instructed to empty bladder as much as possible just prior to having PVR done using bladder ultrasound scanner. Results of scan: 105 mL The patient tolerated the procedure well. Plan: Appointment with Dany. [facility] History of Present illness Narrative* Gracy Sears APRN.DIRECTOR OF TESTING - 02/11/2023 1:45 PM EDT Images from the original note were not included. [facility] Follow-[facility] Visit Follow-up note February 11, 2023 HPI: Mr. Peralta presents today for a follow-up visit. 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 Previous workup with dx of MGUS. Possible contributing factors for neuropathy include both MGUS as well as history of Hep C. Severe canal stenosis noted on MRI of lumbar spine and pt has since had lumbar surgery. Also previously following with ortho for L knee infusion. At this time he reports completion of PT for lumbar symptoms and continues to use a cane at home. He still notes low back pain and is currently taking gabapentin 600mg in AM and 600mg in PM. Follow up scheduled in July with spine surgery. M54.2 Neck pain R20.0, R20.2 Numbness and tingling of both upper extremities R42 Dizziness M48.02 Cervical stenosis of spinal canal Comment: Patient previously reporting bilateral upper extremity numbness and weakness. Numbness present in both hands, on left localized mostly to fifth digit. Today he reports that cervical pains have improved, though numbness and tingling still present. Now experiencing dizziness as well (has been following with PCP for this concern and MRI brain has been ordered). Since time of previous appointment XR cervical spine completed noting moderate disc space narrowing from C3-C7. Concern that cervical findings may be contributing to UE sx and possibly dizziness as well. At this time will proceedwith PT to address above concerns. If no improvement in symptoms will further evaluate with MRI of cervical spine. Appointment was scheduled for hospital follow up. When asked about this hospital stay he states he doesn't remember much. States he does not know why he was there. Went to [facility] initially because he was having severe bowel issues and pain. Per hospital note appears he was having numbness,weakness, bowel concerns. Was seen by neurosurgery during admission. See below. Per hospital DC note on 11/16/22: You were admitted to hospital lower extremity numbness and weakness, diarrhea and intractable lowerback pain. MRI lumbar and thoracic was done which showed no acute change. Due to increased stool burden secondary to opioid use he was started on a bowel regimen with MiraLAX grams daily. Your constipation has now been relieved and now you are being discharged home in stable condition and recommended to follow-up with pain/spine team. You are also recommended to continue using stool softeners with opioids to prevent constipation. Per neurosurgery on 11/15/22: Neurosurgical recommendations are:No acute NS intervention. OK for full mobilization from NS perspective. Can follow up with his pain/spine team. Primary team has been contacted directly about recommendations. More recently he suffered a fall. States he went to the shower after working out and never made it out. He thinks he slipped on water in the shower and fell. Had a femur fracture. States his femur was removed on R. Broke ribs as well. This was about two months ago. Unsure what happened for a month after this d/t medication; states he was out of it. Fingers are numb and he can't do much with his hands. States he would like to follow up regarding cervical surgery. Does not have an appointment with Dr. Portillo yet at this time. Per Dr. Portillo with neurosurgery on 09/30/22: ASSESSMENT/PLAN (M47.12) Cervical spondylosis with myelopathy (primary encounter diagnosis) I did talk to the patient about possible consideration of surgical intervention would include posterior cervical laminoplasty. I would rather let him recover completely from the lumbar laminectomy before surgery consideration. I will see the patient again in November for revisit surgical discussion. Follow up: 2 months States neuropathy is terrible. Fingers are numb. Feet are still swollen. States every now and then will still get dizzy. States all he knows is that he couldn't stand or get up. No heart palpitations. Sometimes feels lightheaded and tunnel vision. States this happens while sitting and not moving as well. Had MRI brain which was normal but states something was abnormal in his blood and had pituitary checked as well. On review of chart, elevated FSH. Currently taking oxycodone 5mg q6 hours. Feels sometimes when he urinates he also has to have a BM as well. Sometimes incontinent. No loss of control of urine. Starting to have numbness in the back but also states it could be pain and maybenot numbness. 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 SKIN BIOPSY HX Current Outpatient Medications on File Prior to Visit Medication Sig enoxaparin (LOVENOX) 40 mg/0.4 mL Inject 0.4 mL subcutaneously q 24 HR for 21 days. senna (SENOKOT) 8.6 mg tab Take 1 tablet by mouth twice daily as needed for constipation. naproxen (NAPROSYN) 500 mg tablet Take 500 mg by mouth once daily. gabapentin (NEURONTIN) 300 mg capsule Take 2 capsules by mouth three times daily for 90 days. acetaminophen (TYLENOL) 325 mg tablet Take 2 tablets by mouth every 6 hours as needed (mild pain orfever >100). amLODIPine (NORVASC) 10 mg tablet Take 1 tablet by mouth once daily. (Patient taking differently: Take 10 mg by mouth daily at bedtime.) traZODone (DESYREL) 150 mg tablet Take 1 tablet by mouth daily at bedtime. lisinopril (ZESTRIL, PRINIVIL) 20 mg tablet Take 1 tablet by mouth once daily. No current facility-administered medications on file prior to visit. Social History Tobacco Use Smoking status: Former Packs/day: 2.00 Years: 23.00 Pack years: 46.00 Types: Cigarettes Quit date: 11/22/1992 Years since quittin.2 Smokeless tobacco: Never Vaping Use Vaping Use: Never used Substance Use Topics Alcohol use: Not Currently Comment: quit in 1991. Drug use: No Comment: Quit drugs in . ALLERGIES Allergen Reactions Cardizem [Diltiazem* Other: See Comments panic attack Diovan [Valsartan] GI Upset Caused nausea Hyzaar [Losartan-Hy* Other: See Comments Mood change Lopressor [Metoprol* Other: See Comments no energy, wiped pt out Review of Systems: Cardiopulmonary: denies chest pain, palpitations Respiratory: denies shortness of breath GI/: denies recent nausea, vomiting, + diarrhea, constipation, incontinence Musculoskeletal: denies + weakness, + joint ache/pain Back/spine: denies + low back, + mid back, or + cervical pains Neuro: denies tremors, loss of feeling, + dizziness, seizure, blackout, + paresthesia, facial paresthesia, facial weakness, difficulty in speech, slurring of words, dysarthria, dysphagia, + memory loss, headache, vision changes, loss of hearing Physical Exam: 02/11/23 1353 BP: 110/74 Pulse: 99 Resp: 20 Temp: 36.7 C (98.1 F) SpO2: 96% Patient is alert and in no distress. Dress is appropriate. Mood is appropriate Breathing appears regular and unstressed Neurologic examination: Cognitively intact. No deficits. No formal MMSE performed. CN: Pupils equal and reactive to light, extraocular movements intact with no nystagmus, face is symmetric with no facial droop, hearing intact bilaterally, tongue is midline with no deviation, shoulder shrug is symmetric. Motor exam shows 5/5 strength symmetric through the upper and lower extremities in all groups tested with exception of weak left wrist flexion and extension and L hip flexion which is 4/5. Hand graspequal. Sensory intact to light touch in upper extremities . Vibratory sensation is decreased to bilateral lower extremities to level of the knee. Per previous appointment: Decreased pinprick sensation to bilateral upper extremities in all fingers and dorsal aspect of hands and forearm. Decreased greater to first digit bilaterally compared to fifth. Per previous appointment: pinprick sensation absent to both lower extremities to mid young then diminished to level of the knee bilaterally. Temperature sensation decreased to LLE. Deep tendon reflexes are diminished symmetrically at the biceps, brachioradialis, triceps, patella,and achilles bilaterally. Coordination: No dysmetria on finger to nose. No tremors noted. No drift seen. Unable to assess gait as pt presents in and is only able to stand with walker. + Tinel's over right wrist. Labs/studies: MRI Report MRI BRAIN WO/W IVCON Exam End: 07/01/2022 12:37 PM (Final result) Narrative: * * *Final Report* * * DATE OF EXAM: Jul 01 2022 12:37PM [facility] 0295 - MRI BRAIN WO/W IVCON / PROCEDURE REASON: multiple diagnoses * * * * Physician Interpretation * * * * EXAMINATION: MRI BRAIN WO/W IVCON HISTORY: Chronic vertigo Ataxia Fall, subsequent encounter Family medicine [facility] (electronic medical record) Encounter (USING CUT AND PASTE FEATURE) 06/09/2022: Chronic vertigo - ICD9: 780.4, ICD10: R42 Following with ENT referral? - ?MRI BRAIN WO/W IVCON - ?IV CONTRAST (RADIOLOGY PROCEDURE) - ?TSH BLD Extensive note in Epic. NOTE: CUTTING AND PASTING from [facility] to the dictation system appears to introduce QUESTION SAMUEL after report finalization not visible during the dictation/within the dictation system itself even if reloaded for an addendum. Presumably a glitch in coding between the systems. Inappropriateness of the QUESTION SAMUEL usually clear from the context. If indeterminate, please refer to the original report in Epic. Additionally, not responsible for any errors in the PASTED INFORMATION whether historical, contextual, typographical, grammatical, or otherwise. For REFERENCE PURPOSES only and any concerns regarding the content should be raised with the actual provider for the given Epic encounter. TECHNIQUE: MRI brain without/with contrast including sagittal T1 and FLAIR, axial flair, diffusion, T2, GRE, pre and postgadolinium coronal T1, and postgadolinium axial T1 3-D MPRAGE. MQ: [id number] Contrast: 20 mL Dotarem IV COMPARISON: None. RESULT: Mild volume loss and mild nonspecific likely chronic small vessel ischemic disease related white matter changes including pontine involvement. Negative for restricted diffusion, GRE changes to suggest hemorrhage or abnormal mineralization, mass effect, extra-axial collection, and abnormal enhancement. Hypoplastic deformed left maxillary sinus with minimal paranasal sinus mucosal thickening. Congenital/developmental deformity of the right globe. Inconsequential left-sided nasopharyngeal mucosal cyst. Unremarkable mastoids, marrow signal, and soft tissues. Impression: IMPRESSION: No acute intracranial process or abnormal enhancement. Design Editor: PSYCHIATRICB Transcribe Date/Time: Jul 01 2022 12:50P Dictated by : LUIS ISSA MD This examination was interpreted and the report reviewed and electronically signed by: LUIS ISSA MD on Jul 01 2022 12:55PM EST MRI Spine Report MRI THORACIC SPINE WO IVCON Exam End: 11/16/2022 10:17 AM (Final result) Narrative: * * *Final Report* * * DATE OF EXAM: Nov 16 2022 10:17AM [facility] 0325 - MRI THORACIC SPINE WO IVCON / PROCEDURE REASON: Spine fracture, thoracic, pathological * * * * Physician Interpretation * * * * EXAMINATION: MRI THORACIC SPINE WO IVCON CLINICAL HISTORY: Thoracic spine fracture. TECHNIQUE: Routine thoracic spine MR protocol. MQ: [id number] COMPARISON: None. RESULT: Counting reference: Lumbosacral junction. For the purposes of this report, anatomic variants: None. L4-5 is considered the level of the iliac crest and assume there are 5 lumbar-type vertebrae. Localizer images: No significant findings. Alignment: Minimal grade 1 anterolisthesis at T2-3 and T3-4. Cord: The visualized cord is within normal limits of signal intensity and morphology. Bone marrow signal/fracture: No evidence of pathologic marrow infiltration. No evidence of acute fracture. Mild chronic anterior wedging of the T7, T8, and T9 vertebral bodies. Scattered Schmorl's nodes. Minimal type I discogenic endplate changes anteriorly at T6-7 and T10-11. There is some incidental STIR hyperintensity within the C6 and C7 vertebral bodies with adjacent edema in the prespinal soft tissues. Thoracic paraspinal soft tissues: The paraspinal soft tissues are within normal limits. Canal and foramina: Mild spinal canal stenosis at T6-7 and T10-11 due to disc bulge. Moderate foraminal stenosis bilaterally at T1-T2, on the left at T6-7, on the left at T8-9, and bilaterally at T9-10 and T10-11 due to facet arthropathy. Impression: IMPRESSION: 1. No evidence of pathologic marrow infiltration in the thoracic spine. 2. Chronic anterior wedging of some midthoracic vertebral bodies as described. 3. Degenerative changes as described. 4. Incidental T2/STIR hyperintensity within the T6 and T7 vertebral bodies with some adjacent edema in the prespinal soft tissues at this level, which could be due to recent trauma or inflammation. Anatomic Thoracic/Lumbar Variant: None. L4-5 is considered the level of the iliac crest and assume there are 5 lumbar-type vertebrae. Design Editor: AMANDA Transcribe Date/Time: Nov 16 2022 1:31P Dictated by : LENA ROBERT MD This examination was interpreted and the report reviewed and electronically signed by: LENA ROBERT MD on Nov 16 2022 1:48PM EST XR Cervical Spine 04/09/22: RESULT: AP, lateral and oblique views reveal multilevel moderate foraminal encroachment from osteophytosis from C3 to C7. Moderate disc space narrowing and anterior osteophytosis from C3 through C7. Straightening of the normal lordosis. No fracture or prevertebral swelling. Mild anterior positioning of C2 on C3. Partially visualized right shoulder prosthesis Previously Reviewed: EMG 07/18/21: 1. The residuals of an old/chronic intraspinal canal lesion (ie: motor radiculopathy)at the left L3-S1 roots or segments. These changes are most severe in degree at the S1 root level where there is moderate active motor axon loss change above and below the knee. At L5 these changes are moderate in degree and active change is only seen below the knee. At L3/4 these changes are modera te to severe in degree but without any evidence of active/ongoing motor fiber loss. Screening studies in the right lower limb show similar, but slightly less significant, active on chronic changes atL5/S1 and moderate chronic (no active) motor axon loss changes at L3/4 suggesting this is a bilateral process and/or related to significant central canal stenosis. 2. 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 Due to overlapping electrodiagnostic features with #1, precise severity is difficult todetermine electrodiagnostically. XR Hip Bilat 07/04/21: Postsurgical change. No complication. Osteoarthrosis of the left hip. XR Knee Bilat 07/04/21: Osteoarthrosis of the knees and left hip Left-sided knee joint effusion.. Postsurgical change of the right hip. No complication. MRI Lumbar Spine 07/21/21: 1. 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 2. Severe central canal stenosis with thecal sac/cauda equina impingement at L3-4 and L4-5. 3. Moderate left L3-4 and L4-5 and [id number] same level neural foraminal narrowing. 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 Possible contributing factors for neuropathy include both MGUS as well as history of HepC. Patient also following with spine for lumbar surgery. At time of previous appointment he continued to note low back pain and remained on gabapentin 600 mg in AM and 600mg in PM. In interim pt did have hospitalization x2. First admit was for LE weakness, numbness, and bowel incontinence and second admit for femur fracture. He was seen by neurosurgery after first admission with unchanged T/L spine imaging and no concerning findings. Bowel concerns, per report, felt to be secondary to constipation. He is currently residing in SNF for recovery. KAY gait at time of today's visit. Recommend continued follow up with spine and orthopedics for lumbar concerns and RLE sx. Continue to work with PT.Recommend continuing gabapentin as previously prescribed for neuropathic pain secondary to spine/per ipheral neuropathy. M54.2 Neck pain R20.0, R20.2 Numbness and tingling of both upper extremities M48.02 Cervical stenosis of spinal canal Comment: Hx of BUE numbness and weakness as well as cervical pain. Cervical MRI with finding of moderate stenosis at C3-4. Has been following with neurosurgery with consideration for posterior cervical laminoplasty after he recovers from lumbar laminectomy. He has not yet had follow up with Dr. Portillo, however, given persistent numbness in upper extremities and weakness have asked pt to schedulefollow up. R42 Dizziness Comment: Pt continues to report intermittent dizziness at time of appointment today. Note, pt initially with symptoms in 05/2022. Since that time MRI of brain completed and unremarkable. Uncertain of etiology as pt previously reporting the room spinning but today notes a sense of lightheadedness. However, symptoms occur while sitting and not with movement. Unable to complete orthostatic VS d/t recent surgery as pt nonweightbearing/presenting in WC and did not bring walker or cane to appt today. However, as previously stated pt denies sx upon moving to sitting or standing position. Will have ptbegin vestibular therapy to determine if improvement in sx (uncertain if this can be completed at SNF and pt may need to schedule on DC from facility). Office Visit on 02/11/23 CONSULT TO [facility] Gracy Sears APRN.MYRA I spent a total of 40 minutes on the date of the service which included preparing to see the patient, [id number] patient care, completing clinical documentation, obtaining and/or reviewing separately obtained history, performing a medically appropriate examination, counseling and educating the pat ient/family/caregiver, and ordering medications, tests, or procedures. [facility] History of Present illness Narrative* Gudelia Samuel MD - 02/03/2023 10:51 AM EDT Images from the original note were not included. ORTHOPAEDIC OFFICE NOTE CHIEF COMPLAINT: Follow-up right periprosthetic femur fracture HISTORY OF PRESENT ILLNESS: Miroslava Peralta is a 72 year old male who presents for Follow-up evaluation of right periprosthetic femur fracture fixated on 01/11/2023. Overall he is doing okay. He still having significant pain at the right hip and thigh although this is improving regularly. He is convalescing in a nursing facility and working with physical therapy there. He has been ambulating with the assistance of a walker and reports that he has been compliant with touchdown weightbearing. He denies current fevers chills nausea vomiting weight loss fatigue or malaise. Reviewed nursing note and current pain scale. 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 SKIN BIOPSY HX FAMILY HISTORY Problem Relation Age of Onset Cancer Mother breast cancer Hypertension Mother None Father father in train accident at yuni age Hypertension Sister Social History Tobacco Use Smoking status: Former Packs/day: 2.00 Years: 23.00 Pack years: 46.00 Types: Cigarettes Quit date: 11/22/1992 Years since quittin.2 Smokeless tobacco: Never Vaping Use Vaping Use: Never used Substance Use Topics Alcohol use: Not Currently Comment: quit in 1991. Drug use: No Comment: Quit drugs in . MEDICATIONS: Current Outpatient Medications Medication Sig enoxaparin (LOVENOX) 40 mg/0.4 mL Inject 0.4 mL subcutaneously q 24 HR for 21 days. senna (SENOKOT) 8.6 mg tab Take 1 tablet by mouth twice daily as needed for constipation. naproxen (NAPROSYN) 500 mg tablet Take 500 mg by mouth once daily. gabapentin (NEURONTIN) 300 mg capsule Take 2 capsules by mouth three times daily for 90 days. acetaminophen (TYLENOL) 325 mg tablet Take 2 tablets by mouth every 6 hours as needed (mild pain orfever >100). amLODIPine (NORVASC) 10 mg tablet Take 1 tablet by mouth once daily. (Patient taking differently: Take 10 mg by mouth daily at bedtime.) traZODone (DESYREL) 150 mg tablet Take 1 tablet by mouth daily at bedtime. lisinopril (ZESTRIL, PRINIVIL) 20 mg tablet Take 1 tablet by mouth once daily. No current facility-administered medications for this visit. ALLERGIES: ALLERGIES Allergen Reactions Cardizem [Diltiazem* Other: See Comments panic attack Diovan [Valsartan] GI Upset Caused nausea Hyzaar [Losartan-Hy* Other: See Comments Mood change Lopressor [Metoprol* Other: See Comments no energy, wiped pt out PHYSICAL EXAMINATION: Resp 20 Ht 5' 10 (1.78m) Wt 220 lb (99.8kg) BMI 31.57 kg/(m^2). General Appearance: Well appearing, alert, in no acute distress, well-hydrated, well nourished. Skin: Skin color, texture, turgor normal, no suspicious rashes or lesions. Psych: Patient is alert and oriented to person, time and place. Mood and affect are normal. Respiratory: Breathing is symmetric and unlabored Gait: The patient was examined in a wheelchair today. Extremities: Right lower extremity is examined. Long laterally based incision is healing well without drainage or sign of infection. There is moderate swelling and ecchymosis along the thigh. Staplesare in place. There is moderate tenderness palpation along the length of the thigh. Gentle range ofmotion of the hip is relatively pain-free. Lymphatic: There is no palpable lymphadenopathy Peripheral Pulses: Normal. Neurologic: Bilateral lower extremities were examined. There is 5/5 strength with hip flexion, kneeextension, dorsiflexion, EHL, plantar flexion. Sensation intact in all nerve dermatomes IMAGES: Physician office building radiographs, 01/27/2023. AP view the pelvis as well as AP and lateral views of the right hip were obtained and reviewed. These demonstrate right femur fracture fixatedwith cables and longstem prosthesis. Overall alignment appears to be stable. There is no sign of loosening or failure of hardware. Bixby are in place in the soft tissue. Soft tissues otherwise unremarkable. Plan ASSESSMENT AND PLAN: 1. 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, subsequent encounter - ICD9: V54.29, ICD10: M97.8XXD, Z96.649 Functional Plan: Patient is a 72-year-old male presenting for postoperative evaluation following surgical fixation of right periprosthetic femur fracture and subsequent revision of prosthetic component. Overall he is doing okay. He is having pain at the hip and thigh that is improving slowly. He has been compliant with touchdown weightbearing. Radiographs today are stable. I discussed this with him at length. I would like him to remain touchdown weightbearing the right lower extremity posteriorprecautions. I will see him back in 4 weeks for repeat evaluation and radiographs less that should arise sooner. At this point time may consider slowly advancing his weightbearing. All of his questions were answered satisfactorily. He expressed understanding of and agreement with the treatment plan. Return in about 4 weeks (around 02/24/2023). Gudelia Samuel MD documented in this encounterF[facility]03-01-2023 Miscellaneous Notes* Telephone Encounter - Hui Rocha - 01/20/2023 2:02 PM EST Called [facility] with [facility]. Scheduled post op appointment with Dr. Samuel 01/27/23 3:00pm POB. Patient is healing well for the most part, wound vac is filling quickly each day, but facility is able to change daily. Heidy agreeable to appointment date, time and location. Hui Rocha January 20, 2023 2:03 PM * Telephone Encounter - Hui Rocha - 01/20/2023 2:01 PM EST ----- Message from Giselle Davidson sent at 01/20/2023 11:34 AM EST ----- Regarding: Orthopedics / Dheeraj-Post Op Surgery Subject Line Format: Patient has been identified by name and Date of (Y/N): y Patient: Miroslava Peralta Date of : 1950 Previous Provider Seen: lizzie Body Part(s) Identified: hip Diagnosis/Reason For Visit: post op Reason for the call/escalation: post op around january 29 for an appt If reason for call/escalation is discharge from ED/ER or Hospital, which facility was the patient seen at: n/a Was an appointment scheduled (Y/N): n/a Person calling if other than patient: [facility] Return call to if other than patient: [facility] -[facility]y Best contact number: [phone] Thank you, Giselle Davidson January 20, 2023 12:03 PM documented in this encounterFlower [facility]02-17-[facility]23 History of Past illness Narrative* Problem Noted Date Resolved Date Periprosthetic fracture of proximal end of femur 01/08/2023 01/14/2023 Incontinence of urine 11/14/2022 11/16/2022 Generalized abdominal pain 11/12/202211/16 Numbness and tingling of foot 07/20/2021 Overview: 07/18/21 EMG/NCS 1. 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 These changes are most severe in degree at the S1 root level where there is moderate active motor axon loss change above and below the knee. At L5 these changes are moderate in degree and active change is only seen below the knee. At L3/4 these changes are moderate to severe in degree but without any evidence of active/ongoing motor fiber loss. Screening studies in the right lower limb show similar, but slightly less significant, active on chronic changes at L5/S1 and moderate chronic (noactive) motor axon loss changes at L3/4 suggesting this is a bilateral process and/or related to significant central canal stenosis. 2. 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 Due to overlapping electrodiagnostic features with #1, precise severity is difficult to determine electrodiagnostically. 04/23/21 bone marrow: does not suggest lymphoplasmacytic lymphoma. 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 04/01/[address] Bhat. ESR 29, CK 554 (weight shirt trimmer). Neg: Lead, B2 microglubulin, B12, CMP, CBC/dif. UPEP+ monoclonal protein 24h w/M spine c/ interp 03/11/21 SPEP + m-protein, K/L ratio 1.17, UPEP negative Bilateral hand, foot and ankle numbness Chronic bilateral low back pain without sciatica 12/18/2020 03/22/2022 Primary localized osteoarthrosis of shoulder reg ion 12/12/2014 03/22/2022 Shoulder pain, right 09/04/2014 03/22/2022 Impaired fasting blood sugar 10/02/201011/2021 Anxiety 09/29/2010 03/22/2022 Diarrhea 07/31/2010 11/16/2022 documented as of this encounter (statuses as of 01/20/2023) [facility] of Past illness Narrative* Problem Noted Date Resolved Date Periprosthetic fracture of proximal end of femur 01/08/2023 01/14/2023 Incontinence of urine 11/14/2022 11/16/2022 Generalized abdominal pain 11/12/202211/16 Numbness and tingling of foot 07/20/2021 Overview: 07/18/21 EMG/NCS 1. 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 These changes are most severe in degree at the S1 root level where there is moderate active motor axon loss change above and below the knee. At L5 these changes are moderate in degree and active change is only seen below the knee. At L3/4 these changes are moderate to severe in degree but without any evidence of active/ongoing motor fiber loss. Screening studies in the right lower limb show similar, but slightly less significant, active on chronic changes at L5/S1 and moderate chronic (noactive) motor axon loss changes at L3/4 suggesting this is a bilateral process and/or related to significant central canal stenosis. 2. 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 Due to overlapping electrodiagnostic features with #1, precise severity is difficult to determine electrodiagnostically. 04/23/21 bone marrow: does not suggest lymphoplasmacytic lymphoma. 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 04/01/[address] Bhat. ESR 29, CK 554 (weight shirt trimmer). Neg: Lead, B2 microglubulin, B12, CMP, CBC/dif. UPEP+ monoclonal protein 24h w/M spine c/ interp 03/11/21 SPEP + m-protein, K/L ratio 1.17, UPEP negative Bilateral hand, foot and ankle numbness Chronic bilateral low back pain without sciatica 12/18/2020 03/22/2022 Primary localized osteoarthrosis of shoulder reg ion 12/12/2014 03/22/2022 Shoulder pain, right 09/04/2014 03/22/2022 Impaired fasting blood sugar 10/02/201011/2021 Anxiety 09/29/2010 03/22/2022 Diarrhea 07/31/2010 11/16/2022 documented as of this encounter (statuses as of 02/03/2023) [facility] of Past illness Narrative* Problem Noted Date Resolved Date Periprosthetic fracture of proximal end of femur 01/08/2023 01/14/2023 Incontinence of urine 11/14/2022 11/16/2022 Generalized abdominal pain 11/12/202211/16 Numbness and tingling of foot 07/20/2021 Overview: 07/18/21 EMG/NCS 1. 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 These changes are most severe in degree at the S1 root level where there is moderate active motor axon loss change above and below the knee. At L5 these changes are moderate in degree and active change is only seen below the knee. At L3/4 these changes are moderate to severe in degree but without any evidence of active/ongoing motor fiber loss. Screening studies in the right lower limb show similar, but slightly less significant, active on chronic changes at L5/S1 and moderate chronic (noactive) motor axon loss changes at L3/4 suggesting this is a bilateral process and/or related to significant central canal stenosis. 2. 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 Due to overlapping electrodiagnostic features with #1, precise severity is difficult to determine electrodiagnostically. 04/23/21 bone marrow: does not suggest lymphoplasmacytic lymphoma. 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 04/01/[address] Bhat. ESR 29, CK 554 (weight shirt trimmer). Neg: Lead, B2 microglubulin, B12, CMP, CBC/dif. UPEP+ monoclonal protein 24h w/M spine c/ interp 03/11/21 SPEP + m-protein, K/L ratio 1.17, UPEP negative Bilateral hand, foot and ankle numbness Chronic bilateral low back pain without sciatica 12/18/2020 03/22/2022 Primary localized osteoarthrosis of shoulder reg ion 12/12/2014 03/22/2022 Shoulder pain, right 09/04/2014 03/22/2022 Impaired fasting blood sugar 10/02/201011/2021 Anxiety 09/29/2010 03/22/2022 Diarrhea 07/31/2010 11/16/2022 documented as of this encounter (statuses as of 02/12/2023) [facility] Past illness Narrative* Problem Noted Date Resolved Date Periprosthetic fracture of proximal end of femur 01/08/2023 01/14/2023 Incontinence of urine 11/14/2022 11/16/2022 Generalized abdominal pain 11/12/202211/16 Numbness and tingling of foot 07/20/2021 Overview: 07/18/21 EMG/NCS 1. 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 These changes are most severe in degree at the S1 root level where there is moderate active motor axon loss change above and below the knee. At L5 these changes are moderate in degree and active change is only seen below the knee. At L3/4 these changes are moderate to severe in degree but without any evidence of active/ongoing motor fiber loss. Screening studies in the right lower limb show similar, but slightly less significant, active on chronic changes at L5/S1 and moderate chronic (noactive) motor axon loss changes at L3/4 suggesting this is a bilateral process and/or related to significant central canal stenosis. 2. 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 Due to overlapping electrodiagnostic features with #1, precise severity is difficult to determine electrodiagnostically. 04/23/21 bone marrow: does not suggest lymphoplasmacytic lymphoma. 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 04/01/[address] Bhat. ESR 29, CK 554 (weight shirt trimmer). Neg: Lead, B2 microglubulin, B12, CMP, CBC/dif. UPEP+ monoclonal protein 24h w/M spine c/ interp 03/11/21 SPEP + m-protein, K/L ratio 1.17, UPEP negative Bilateral hand, foot and ankle numbness Chronic bilateral low back pain without sciatica 12/18/2020 03/22/2022 Primary localized osteoarthrosis of shoulder reg ion 12/12/2014 03/22/2022 Shoulder pain, right 09/04/2014 03/22/2022 Impaired fasting blood sugar 10/02/201011/2021 Anxiety 09/29/2010 03/22/2022 Diarrhea 07/31/2010 11/16/2022 documented as of this encounter (statuses as of 02/16/2023) [facility] Past illness Narrative* Problem Noted Date Resolved Date Periprosthetic fracture of proximal end of femur 01/08/2023 01/14/2023 Incontinence of urine 11/14/2022 11/16/2022 Generalized abdominal pain 11/12/202211/16 Numbness and tingling of foot 07/20/2021 Overview: 07/18/21 EMG/NCS 1. 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 These changes are most severe in degree at the S1 root level where there is moderate active motor axon loss change above and below the knee. At L5 these changes are moderate in degree and active change is only seen below the knee. At L3/4 these changes are moderate to severe in degree but without any evidence of active/ongoing motor fiber loss. Screening studies in the right lower limb show similar, but slightly less significant, active on chronic changes at L5/S1 and moderate chronic (noactive) motor axon loss changes at L3/4 suggesting this is a bilateral process and/or related to significant central canal stenosis. 2. 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 Due to overlapping electrodiagnostic features with #1, precise severity is difficult to determine electrodiagnostically. 04/23/21 bone marrow: does not suggest lymphoplasmacytic lymphoma. 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 04/01/[address] Bhat. ESR 29, CK 554 (weight shirt trimmer). Neg: Lead, B2 microglubulin, B12, CMP, CBC/dif. UPEP+ monoclonal protein 24h w/M spine c/ interp 03/11/21 SPEP + m-protein, K/L ratio 1.17, UPEP negative Bilateral hand, foot and ankle numbness Chronic bilateral low back pain without sciatica 12/18/2020 03/22/2022 Primary localized osteoarthrosis of shoulder reg ion 12/12/2014 03/22/2022 Shoulder pain, right 09/04/2014 03/22/2022 Impaired fasting blood sugar 10/02/201011/2021 Anxiety 09/29/2010 03/22/2022 Diarrhea 07/31/2010 11/16/2022 documented as of this encounter (statuses as of 02/18/2023) [facility] Past illness Narrative* Problem Noted Date Resolved Date Periprosthetic fracture of proximal end of femur 01/08/2023 01/14/2023 Incontinence of urine 11/14/2022 11/16/2022 Generalized abdominal pain 11/12/202211/16 Numbness and tingling of foot 07/20/2021 Overview: 07/18/21 EMG/NCS 1. 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 These changes are most severe in degree at the S1 root level where there is moderate active motor axon loss change above and below the knee. At L5 these changes are moderate in degree and active change is only seen below the knee. At L3/4 these changes are moderate to severe in degree but without any evidence of active/ongoing motor fiber loss. Screening studies in the right lower limb show similar, but slightly less significant, active on chronic changes at L5/S1 and moderate chronic (noactive) motor axon loss changes at L3/4 suggesting this is a bilateral process and/or related to significant central canal stenosis. 2. 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 Due to overlapping electrodiagnostic features with #1, precise severity is difficult to determine electrodiagnostically. 04/23/21 bone marrow: does not suggest lymphoplasmacytic lymphoma. 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 04/01/[address] Bhat. ESR 29, CK 554 (weight shirt trimmer). Neg: Lead, B2 microglubulin, B12, CMP, CBC/dif. UPEP+ monoclonal protein 24h w/M spine c/ interp 03/11/21 SPEP + m-protein, K/L ratio 1.17, UPEP negative Bilateral hand, foot and ankle numbness Chronic bilateral low back pain without sciatica 12/18/2020 03/22/2022 Primary localized osteoarthrosis of shoulder reg ion 12/12/2014 03/22/2022 Shoulder pain, right 09/04/2014 03/22/2022 Impaired fasting blood sugar 10/02/201011/2021 Anxiety 09/29/2010 03/22/2022 Diarrhea 07/31/2010 11/16/2022 documented as of this encounter (statuses as of 02/25/2023) [facility] Past illness Narrative* Problem Noted Date Resolved Date Periprosthetic fracture of proximal end of femur 01/08/2023 01/14/2023 Incontinence of urine 11/14/2022 11/16/2022 Generalized abdominal pain 11/12/202211/16 Numbness and tingling of foot 07/20/2021 Overview: 07/18/21 EMG/NCS 1. 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 These changes are most severe in degree at the S1 root level where there is moderate active motor axon loss change above and below the knee. At L5 these changes are moderate in degree and active change is only seen below the knee. At L3/4 these changes are moderate to severe in degree but without any evidence of active/ongoing motor fiber loss. Screening studies in the right lower limb show similar, but slightly less significant, active on chronic changes at L5/S1 and moderate chronic (noactive) motor axon loss changes at L3/4 suggesting this is a bilateral process and/or related to significant central canal stenosis. 2. 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 Due to overlapping electrodiagnostic features with #1, precise severity is difficult to determine electrodiagnostically. 04/23/21 bone marrow: does not suggest lymphoplasmacytic lymphoma. 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 04/01/[address] Bhat. ESR 29, CK 554 (weight shirt trimmer). Neg: Lead, B2 microglubulin, B12, CMP, CBC/dif. UPEP+ monoclonal protein 24h w/M spine c/ interp 03/11/21 SPEP + m-protein, K/L ratio 1.17, UPEP negative Bilateral hand, foot and ankle numbness Chronic bilateral low back pain without sciatica 12/18/2020 03/22/2022 Primary localized osteoarthrosis of shoulder reg ion 12/12/2014 03/22/2022 Shoulder pain, right 09/04/2014 03/22/2022 Impaired fasting blood sugar 10/02/201011/2021 Anxiety 09/29/2010 03/22/2022 Diarrhea 07/31/2010 11/16/2022 documented as of this encounter (statuses as of 03/06/2023) [facility]-25-[facility]23 Miscellaneous Notes* Telephone Encounter - Andra Hough MD - 12/16/2022 9:18 AM EST Please notify the patient that is MRI pituitary came back normal At this time, no further endocrine testing is needed As I suggested the patient during the appt, he need to see neurology regarding decreased Lower extremity strength. Andra Hough MD documented in [facility]01-[facility]-2023 NoteHNO ID: [id number] Author: RT Lisa(R) Service: Radiology Author Type: Technologist Type: Progress Notes Filed: 12/08/2022 11:49 AM Note Text: Radiology Service Progress Note DATE OF SERVICE: December 08, 2022 TIME: 11:49 AM PATIENT IDENTITY VERIFICATION COMPLETED USING TWO (2) STANDARD IDENTIFIERS: Name and Date of confirmed by patient verbally and Name and Date of confirmed by identification band. FALL SCREENING: Has the patient had 2 falls in the last year or 1 fall with injury or currently using an Ambulatory Assistive Device (Walker, Cane, Wheelchair, Crutches, etc.)? No PATIENT GENDER DATA: Male PATIENT RELEVANT IMPLANT DATA REVIEWED: Yes ALLERGIES: Reviewed and unchanged CONTRAST ALLERGY: NO. EXAM: MRI - CONTRAST TYPE: GROUP II PERIPHERAL IV DATA: Ambulatory: rad rn iv RADIOLOGY DEPARTMENT: MR; Exam(s) Completed: Head: Pituitary SIGNATURE: RT Prachi(R) PATIENT NAME: Miroslava Peralta DATE: December 08, 2022 TIME: 11:49 AMGal[facility] [id number] Miscellaneous Notes* Telephone Encounter - Yudy Nelson Ma - 12/03/2022 10:13 AM EST Patient notified. Please help pt set up appt * Telephone Encounter - Marbella Zaidi PA-C - 12/02/2022 12:07 PM EST Please let him know I did discuss his case with Dr. Singh. He recommended f/u with neurosurgeon Thanks, Duong Zaidi PA-C documented in [facility]01-04-2023 Miscellaneous Notes* Telephone Encounter - Karis Larson Ma - 11/25/2022 11:09 AM EST Jocelin jiménez was notified and verbalized understanding Karis Larson Ma * Telephone Encounter - Marbella Zaidi PA-C - 11/24/2022 5:14 PM EST He was scanned and negative for cauda equina- we discussed at visit. I have reached out to Dr. Singh but he's been out of the office over the holiday. ThanksDuong PA-C * Telephone Encounter - Hazel Grubbs LPN - 11/24/2022 4:38 PM EST Patient friend Jocelin Jiménez calling, she said she was at patient appt with him on 11/19, she is askingif Don could have scan negative cauda equina syndrome? If he needs more testing done? Please advise documented in [facility] encounterF[facility]01-03-2023 Miscellaneous Notes* Telephone Encounter - Yudy Nelson Ma - 11/24/2022 9:03 AM EST Images from the original note were not included. Marbella Zaidi PA-C P tr María Moise Please have him schedule follow up with neuro Dr Stacy. Thanks, Duong Zaidi PA-C documented in this encounterFlower Hospital12-29-2022 History of Present illness Narrative* Marbella Zaidi PA-C - 11/19/2022 4:00 PM EST 72 year old male with c/o hospital discharge follow up: Pre-hospitalization details: 11/01/[address] [facility] ER after fall hitting chest on bathtub, fractured CT chest: Multiple small lymph nodes in the mediastinum consistent with reactive lymph hyperplasia,nondisplaced left rib fractures Oxycodone 5/325mg/ #20 11/11/2022 [facility] ED visit: s/p decompressive laminectomy 04/18/2022 ED visit for abscess at incision. 03/20/2022 ED visit urinary retention, Worsening leg pain, difficulty ambulating, incontinent of formed stool with loss of sensation ( hadmentioned stool streaks at our last visit). [facility] course: admitted due to need for hospital transfer prolonged. Discharged to [facility] 11/14/2022 From [facility] records: Admission date 11/14/2022 Discharge date TRANSITIONS OF CARE CRITICAL ISSUES: MCDANIELS MEDICATION CHANGES: Start Miralax 17 g dailly, Senna 8.5 mg daily LAB MONITORING NEEDED: Not applicable IMAGING FOLLOW-UP: Not applicable LABS AND PROCEDURES PENDING AT DISCHARGE: Test Results Not Yet Available from This Hospitalization: Please Review at Your Follow Up Appointment Order Current Status CALPROTECTIN,FECAL In process CULTURE, YERSINIA In process ENTERIC BACTERIAL PANEL BY PCR In process No pending results. FOLLOW UP: Follow-up with Neurology within 1-2 weeks. REASON FOR HOSPITALIZATION: Lower back pain PRINCIPAL DIAGNOSIS: Opioid induced constipation SECONDARY DIAGNOSIS: Principal Problem (Resolved): Incontinence of urine POA: Yes Active Problems: Hypertension POA: Yes Chronic hepatitis C without hepatic coma (HCC) POA: Yes S/P laminectomy POA: Yes Intractable low back pain POA: Yes Rib fractures POA: Yes Resolved Problems: Diarrhea POA: Yes Generalized abdominal pain POA: Yes HOSPITAL COURSE: You were admitted to hospital lower extremity numbness and weakness, diarrhea and intractable lowerback pain. MRI lumbar and thoracic was done which showed no acute change. Due to increased stool burden secondary to opioid use he was started on a bowel regimen with MiraLAX grams daily. Your constipation has now been relieved and now you are being discharged home in stable condition and recommended to follow-up with pain/spine team. You are also recommended to continue using stool softeners with opioids to prevent constipation. OPERATIONS/PROCEDURE DURING THIS HOSPITALIZATION: * No surgery found * N/A CONSULTS DURING HOSPITALIZATION: Treatment Team: Attending Provider: Gianluca Abarca MD Consulting: Joshua Chris DO Orders Placed This Encounter Smoking Cessation Education FOLLOW UP APPOINTMENT AMBULATORY Physician Consult Physician Consult Follow-Up Appointment PATIENT CONDITION AT DISCHARGE: Stable ADDITIONAL INFORMATION: This is a 72-year-old male with past medical history of hypertension, status post decompressive laminectomy in March 20, 2022 with abscess I&D on 03/29/2022 who presents with lower extremities numbness and weakness, diarrhea, intractable lower back pain over the last 7-8-month. MRI lumbar spine without IV contrast showed postoperative and spondylotic changes superimposed on developmentally short pedicles with varying degrees of mild-moderate canal and foraminal compromise. CT abdomen pelvis showed no acute intra-abdominal or pelvic abnormality. Acute to subacute appearing left anterolateral rib fractures. MRI thoracic was also ordered which showed incidental finding of T2/STIR hyperintensity within the T6 and T7 vertebral bodies with some adjacent edema in the prespinal soft tissues at this level, which could be due to recent trauma or inflammation. Neurosurgery was consulted for possible intervention. They recommended no intervention at this timeand close follow-up with Neurology. Patient was started on a bowel regimen with Miralax for opioid induced constipation with overflow incontinence. Patient had a proper bowel movement and felt symptomatically better. Patient is now being discharged in a stable condition with bowel regimen of miralax and senna for opioid induced consti pation. FOLLOW UP APPOINTMENTS: Future Appointments Date Time Provider Department Center 12/02/2022 11:40 AM Brock Portillo MD [facility] 03/11/2023 11:00 AM BEVERLY Robbins [facility] 04/30/2023 1:30 PM LAB [facility] 05/07/2023 2:50 PM Sanjay Bhat, DO [facility] Imaging review: 11/12/2022 MRI spine: T10-T11: Broad-based shallow disc bulging/protrusion without cord impact. At least mild bilateral foraminal stenosis. T11-T12: Shallow disc bulging. Patent canal and foramina. T12-L1: Shallow disc bulging. Patent canal and foramina. L1-L2: Shallow disc bulging, facet and ligamentous hypertrophy; patent canal with narrowing of each subarticular zone, patent right foramen, mild left foraminal stenosis. L2-L3: Diffuse disc bulging, facet and ligamentous hypertrophy, short pedicles; mild-moderate canalstenosis with narrowing of each subarticular zone, patent foramina. L3-L4: Laminectomy changes, diffuse disc bulging, residual facet and ligamentous hypertrophy, shortpedicles; moderate canal stenosis, mild-moderate bilateral foraminal stenosis. L4-L5: Laminectomy changes, diffuse disc bulging, residual facet hypertrophy, short pedicles; mild-moderate canal stenosis with asymmetric narrowing of the right subarticular zone, mild-moderate right and mild left foraminal stenosis. L5-S1: Diffuse disc bulging, facet arthropathy, ligamentous hypertrophy, short pedicles; patent canal, mild bilateral foraminal stenosis. Sacrum and iliac wings: The visualized sacrum and iliac wingsare within normal limits. The presacral soft tissues are normal in appearance. 11/16/2022 MRI thoracic spine: 1. No evidence of pathologic marrow infiltration in the thoracic spine. 2. Chronic anterior wedging of some midthoracic vertebral bodies as described. Mild chronic anterior wedging of the T7, T8, and T9 vertebral bodies.Mild spinal canal stenosis at T6-7 and T10-11 due to disc bulge. 3. Degenerative changes as described: Moderate foraminal stenosis bilaterally at T1-T2, on the leftat T6-7, on the left at T8-9, and bilaterally at T9-10 and T10-11 due to facet arthropathy. 4. Incidental T2/STIR hyperintensity within the T6 and T7 vertebral bodies with some adjacent edema in the prespinal soft tissues at this level, which could be due to recent trauma or inflammation. Lab review: Component Latest Ref Rng & Units 11/15/2022 Shigella spp./Enteroinvasive E.coli DNA Not Detected Not detected Campylobacter jejuni/coli DNA Not Detected Not detected Shiga toxin-producing gene(s) Not Detected Not detected Salmonella spp. DNA Not Detected Not detected Cryptosporidium Antigen by EIA Negative Negative for Cryptosporidium by EIA. Giardia Antigen by EIA Negative Negative for Giardia lamblia by EIA. Culture Negative for Yersinia. Component Latest Ref Rng & Units 11/15/2022 Transglutaminase Ab, IgA <20 Units Transglutaminase IgA Qualitative Negative, Test not Indicated Interpretation (Celiac Screen) Gliadin Ab, IgA <20 Units Gliad Deamidated IgA Qual Negative, Test not Indicated IgA 70 - 400 mg/dL Vitamin B12 232 - 1,245 pg/mL 981 Component Latest Ref Rng & Units 11/12/2022 11/12/2022 11/13/2022 4:43 PM 10:00 PM CK 51 - 298 U/L 141 MB <7.8 ng/mL 4.6 CK MB % <=4.0 % 3.3 Troponin T 0.000 - 0.029 ng/mL <0.010 <0.010 <0.010 Component Latest Ref Rng & Units 11/13/2022 11/14/2022 WBC 3.70 - 11.00 k/uL 5.45 6.14 RBC 4.20 - 6.00 m/uL 4.52 4.49 Hemoglobin 13.0 - 17.0 g/dL 14.8 14.7 Hematocrit 39.0 - 51.0 % 43.2 43.3 MCV 80.0 - 100.0 fL 95.6 96.4 MCH 26.0 - 34.0 pg 32.7 32.7 MCHC 30.5 - 36.0 g/dL 34.3 33.9 RDW-CV 11.5 - 15.0 % 12.5 12.3 Platelet Count 150 - 400 k/uL 211 230 MPV 9.0 - 12.7 fL 9.4 9.5 Absolute nRBC <0.01 k/uL <0.01 <0.01 Component Latest Ref Rng & Units 11/11/2022 11/13/2022 11/14/2022 Protein, Total 6.3 - 8.0 g/dL 7.0 6.7 6.8 Albumin 3.9 - 4.9 g/dL 4.2 3.9 3.9 Calcium 8.5 - 10.2 mg/dL 9.6 9.5 9.5 Bilirubin, Total 0.2 - 1.3 mg/dL 0.2 0.4 0.4 Alkaline Phosphatase 38 - 113 U/L 70 70 73 AST 14 - 40 U/L 20 14 13 (L) ALT 10 - 54 U/L 13 11 10 Glucose 74 - 99 mg/dL 100 (H) 100 (H) 99 BUN 9 - 24 mg/dL 16 16 18 Creatinine 0.73 - 1.22 mg/dL 0.89 1.10 1.02 Sodium 136 - 144 mmol/L 134 (L) 139 135 (L) Potassium 3.7 - 5.1 mmol/L 4.2 4.6 4.5 Chloride 97 - 105 mmol/L 99 102 101 CO2 22 - 30 mmol/L 25 30 30 Anion Gap 9 - 18 mmol/L 10 7 (L) 4 (L) eGFR >=60 mL/min/1.73m 90 71 78 Component Latest Ref Rng & Units 11/11/2022 Color Yellow Yellow Clarity Clear Clear Glucose, Urine Negative Negative Bilirubin, Urine Negative Negative Ketones, Urine Negative Negative Specific [place], Ur 1.005 - 1.030 1.025 Hemoglobin/Blood,Ur Negative, Trace Negative pH, Urine 5.0 - 8.0 6.0 Protein, Urine Negative Negative Urobilinogen 0.2-1.0 EU/dL 0.2 EU/dL Nitrites Negative Negative Leukest Negative Negative WBC, Urine 0-5 /HPF 0-5 /HPF RBC, Urine 0-3 /HPF 0-3 /HPF Bacteria None Seen /HPF Rare (A) Component Latest Ref Rng & Units 11/12/2022 11/12/2022 4:43 PM 5:25 PM COVID 19 Result Not Detected Culture No growth 5 days No growth 5 days Component Latest Ref Rng & Units 11/11/2022 11/15/2022 Hemoglobin A1C 4.3 - 5.6 % 5.3 Estimated Average Glucose mg/dL 105 Magnesium 1.7 - 2.3 mg/dL 2.0 Medication reconciliation: New medications: Polyethylene Glycol 17 g with 8 ounces of liquid daily #21/12 Senna 8.6 mg daily #21/12 Discontinue medications: Metamucil Morphine 1 mg Ondansetron 4 mg ODT Continued medications: Gabapentin 600 mg 3 times daily #540/0 Oxycodone IR 5 mg every 6 hours as needed for moderate pain not currently Acetaminophen 650 mg every 6 hours as needed Amlodipine 10 mg daily #90/1 Trazodone 150 mg daily at bedtime #90/1 Lisinopril 20 mg daily #90/1 Current Status: States he was disappointed no one did anything for his back pain. Identifies his penis is . No erectile function, no sensation. Can't feels anything from his rectum. Claims they poked his rectum and he felt nothing. Continues off balance, wide based gait. Calves cramp/. 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 SKIN BIOPSY HX Social History Tobacco Use Smoking status: Former Packs/day: 2.00 Years: 23.00 Pack years: 46.00 Types: Cigarettes Quit date: 11/22/1992 Years since quittin.0 Smokeless tobacco: Never Vaping Use Vaping Use: Never used Substance Use Topics Alcohol use: Not Currently Comment: quit in 1991. Drug use: No Comment: Quit drugs in ~. ACTIVE PROBLEM LIST Hypertension Sleeping Difficulty S/P Hip Replacement S/P Shoulder Joint Replacement Chronic Hepatitis C Without Hepatic Coma (Hcc) Mgus (Monoclonal Gammopathy of Unknown Significance) Former Smoker Neurogenic Claudication (Hcc) Obesity, Class I, Bmi 30-34.9 S/P Laminectomy Post-Op Pain Chronic Vertigo Intractable Low Back Pain Rib Fractures Current Outpatient Medications Medication Sig Dispense Refill polyethylene glycol 3350 (MIRALAX, GLYCOLAX) 17 gram packet Take 1 Packet by mouth once daily. Dissolve dose in 4 - 8 ounces of liquid and take as directed. 30 Each 1 Sennosides (SENNA) 8.6 mg cap Take 1 capsule by mouth once daily. 30 capsule 1 docusate sodium (COLACE) 100 mg capsule Take 1 capsule by mouth twice daily as needed. oxyCODONE IR (ROXICODONE) 5 mg immediate release tablet Take 1 tablet by mouth every 6 hours as needed (moderate pain). Hold for hypotension or sedation or RR less than 12 0 acetaminophen (TYLENOL) 325 mg tablet Take 2 tablets by mouth every 6 hours as needed (mild pain orfever >100). amLODIPine (NORVASC) 10 mg tablet Take 1 tablet by mouth once daily. (Patient taking differently: Take 10 mg by mouth daily at bedtime.) 90 tablet 1 gabapentin (NEURONTIN) 300 mg capsule Take 2 capsules by mouth three times daily for 90 days. 540 capsule 0 traZODone (DESYREL) 150 mg tablet Take 1 tablet by mouth daily at bedtime. 90 tablet 1 lisinopril (ZESTRIL, PRINIVIL) 20 mg tablet Take 1 tablet by mouth once daily. 90 tablet 1 No current facility-administered medications for this visit. HEPATITIS A(1 of 2 - Risk 2-dose series) Never done BP CONTROLLED (<130/80) Never done EXAM: BP 138/90 Pulse 74 Resp 18 Wt 98.4 kg (217 lb) SpO2 98% BMI 30.27 kg/m Pleasant adult man in no acute distress. Alert and oriented all spheres. Normal affect and cognition. Speech normal. No deficits to learning or comprehension. Skin warm, dry, pink to lips and nailbeds. Normal turgor. Respirations regular and unlabored. HEENT: NCAT. No scleral icterus or conjunctival injection. TM's clear. Nose and oropharynx free from injection or lesion. Oral membranes moist and pink. No cervical lymph nodes. Thyroid non-tender, no masses, or enlargement. Carotids pulses 2+/4+ without bruits. No JVD with HOB at 30 degrees. Chest is normal shape. Lungs are clear to all palencia with good air exchange through out. HRRR without murmur or gallop. No lifts, heaves, or rubs. Abdomen: active bowel sounds throughout, soft, nontender, no masses or organomegaly. No CVAT. Extrem: no clubbing, cyanosis, edema. Distal pulses 2+/4, prompt capillary refill. Gait wide based, trouble maintaining balance on standing and also with turning. Bilateral leg weakness to resistance to gravity on hip flexion, L> R weakness in plantar dorsiflexion. Muscle tone weak in general upper and lower. Sensation grossly intact. Negative findings: speech normal, mental status intact, cranial nerves 2-12 intact. Has positive sensation to light touch, sharp and dull through saddle region. + anal wink. + cremasteric. + discrimination sharp dull, cold and warm over penis. Extrem: no clubbing or cyanosis. Edema: none. Extremities are warm and pink with prompt capillary refill. ASSESSMENT/PLAN: 1. Hospital discharge follow-up - ICD9: V67.59, ICD10: Z09 (primary diagnosis) Medications reconciled. Problem list updated 2. Urinary incontinence, unspecified type - ICD9: 788.30, ICD10: R32 Mild, overflow: resume flomax 3. Therapeutic opioid induced constipation - ICD9: 564.09, E935.2, ICD10: K59.03, T40.2X5A Follow bowel regimen 4. S/P laminectomy - ICD9: V45.89, ICD10: Z98.890 Suspect current issues are secondary to surgery. Saddle paresthesia is concerning but mild on testing, and cauda equina not demonstrated on work up. MGUS remains in backdrop as well. Will again forward chart to neuro for oversight to make sure not missing anything. 5. Paresthesia of saddle area: Cauda equina ruled out - ICD9: 782.0, ICD10: R20.2 As above 6. Intractable back pain - ICD9: 724.5, ICD10: M54.9 Has follow up with spine 7. MGUS (monoclonal gammopathy of unknown significance) - ICD9: 273.1, ICD10: D47.2 Stable, followed by hemonc 8. Hypogonadism in male - ICD9: 257.2, ICD10: E29.1 9. High serum follicle stimulating hormone (FSH) - ICD9: 790.99, ICD10: R79.89 Following with endo: MRI brain recommended. Discussed with patient: needs to schedule Marbella Zaidi PA-C documented in [facility]12-26-2022 Miscellaneous Notes* Telephone Encounter - Joya Carpenter RN - 11/16/2022 6:18 PM EST Pt's friend stated pt is currently getting discharge from the hospital and she have some concerns. Conference pt's friend to the [facility] for operational assistant with getting connected to the nursing station for PK3[facility]. documented in this encounterFlower Hospital12-25-2022 NoteHNO ID: [id number] Author: Gianluca Abarca MD Service: Hospital Medicine Author Type: Physician Type: Progress Notes Filed: 11/15/2022 4:36 PM Note Text: DEPARTMENT OF HOSPITAL MEDICINE HOSPITAL MEDICINE PROGRESS NOTE SERVICE DATE: 11/15/2022 SERVICE TIME: 4:25 PM Hospital Medicine/Primary Attending: Gianluca Abarca MD Subjective Patient seen and examined today. He denies any new complain. Continues to have a problem with walking. No other new symptoms. He continues also to report diarrhea constipation and stool incontinence and urgency. INTERVAL HPI: MEDICATIONS: Reviewed Objective Physical Exam BP 133/79 Pulse 68 Temp 36.7 ?C (98.1 ?F) (Oral) Resp 16 Ht 180.3 cm (5' 11 ) Wt 100.6 kg (221 lb 12.5 oz) SpO2 96% BMI 30.93 kg/m? Gen: Pt is pleasant AOx3 in NAD HEENT: normocephalic Neck: Supple Pulm: CTAB, no wheezes, rales or rhonci CV: RRR ABB: Soft, non-tender, non-distended. Neuro: Neurological exam nonfocal. Loss of sensation bilateral lower extremity consistent with a neuropathy pattern. extrem: No edema Skin: Warm, mucosa moist DATA: Diagnostic tests reviewed for today's visit: CBC, Coags, BMP, Mg, Phos Recent Labs 11/14/22 0450 11/13/22 0610 WBC 6.14 5.45 HB 14.7 14.8 HCT 43.3 43.2 PLT 230 211 NA 135* 139 K 4.5 4.6 CHLOR 101 102 CO2 30 30 BUN 18 16 CREAT 1.02 1.10 GLUC 99 100* CA 9.5 9.5 Assessment/Plan Patient Active Hospital Problem List: Incontinence of urine (11/14/2022) Diarrhea (07/31/2010) Hypertension (07/31/2010) Chronic hepatitis C without hepatic coma (HCC) (01/05/2019) S/P laminectomy (03/20/2022) Intractable low back pain (11/12/2022) Generalized abdominal pain (11/12/2022) Rib fractures (11/12/2022) # Stool incontinent likely overflow incontinence # Intermittent constipation alternating with diarrhea Unlikely to be related to neurogenic cause MRI did not show any cauda equina sign Neurosurgery on board and recommend no intervention We will start the patient on stool softener Consult the GI #Chronic lower back pain s/p back surgery #S/p decompressive laminectomy in March 20, 2022 with abscess IANDD on 03/29/2022 # Unsteady gait difficulty of ambulation could be related to neuropathy Physical exam showed no evidence of neurological deficit except sensory symptoms in the lower extremities suggested neuropathy MRI showed no acute changes Continue with pain medication oxycodone and gabapentin Evaluated by neurosurgery and recommended no surgical intervention Follow-up with his spine surgery We will check B12 and syphilis # Hypertension Continue home meds VTE Prophylaxis: Early Ambulation Disposition: Home Plan of care discussed with: Provider, RN, Patient SIGNATURE: Gianluca Abarca MD PATIENT NAME: Miroslava Peralta DATE: November 15, 2022 TIME: 4:25 [facility]12-25-2022 NoteHNO ID: [id number] Author: Delia Mauro MD Service: Neurosurgery Author Type: Physician Type: Progress Notes Filed: 11/15/2022 8:25 AM Note Text: LOLI ADDENDUM History and exam by the Resident/PA fully and personally reviewed face to face with the patient. All relevant and significant imaging and laboratory testing reviewed. Findings are Patient with prior decompressive laminectomy and then I and D came in for fecal and urinary incontinence. Exam: No focal weakness, atrophy, or signs of myelopathy MRI shows post-op changes, moderate degenerative changes, nothing that explains urinary and bowel issues (up to T10 visualized). Cervical MRI from Oct showed moderate degenerative changes C3-4 4-5 5-6. Neurosurgical recommendations are:No acute NS intervention. OK for full mobilization from NS perspective. Can follow up with his pain/spine team. Primary team has been contacted directly about recommendations.[facility] [id number] History of Past illness Narrative* Problem Noted Date Resolved Date Incontinence of urine 11/14/2022 11/16/2022 Generalized abdominal pain 11/12/202211/16 Numbness and tingling of foot 07/20/2021 Overview: 07/18/21 EMG/NCS 1. 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 These changes are most severe in degree at the S1 root level where there is moderate active motor axon loss change above and below the knee. At L5 these changes are moderate in degree and active change is only seen below the knee. At L3/4 these changes are moderate to severe in degree but without any evidence of active/ongoing motor fiber loss. Screening studies in the right lower limb show similar, but slightly less significant, active on chronic changes at L5/S1 and moderate chronic (noactive) motor axon loss changes at L3/4 suggesting this is a bilateral process and/or related to significant central canal stenosis. 2. 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 Due to overlapping electrodiagnostic features with #1, precise severity is difficult to determine electrodiagnostically. 04/23/21 bone marrow: does not suggest lymphoplasmacytic lymphoma. 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 04/01/[address] Bhat. ESR 29, CK 554 (weight shirt trimmer). Neg: Lead, B2 microglubulin, B12, CMP, CBC/dif. UPEP+ monoclonal protein 24h w/M spine c/ interp 03/11/21 SPEP + m-protein, K/L ratio 1.17, UPEP negative Bilateral hand, foot and ankle numbness Chronic bilateral low back pain without sciatica 12/18/2020 03/22/2022 Primary localized osteoarthrosis of shoulder reg ion 12/12/2014 03/22/2022 Shoulder pain, right 09/04/2014 03/22/2022 Impaired fasting blood sugar 10/02/201011/2021 Anxiety 09/29/2010 03/22/2022 Diarrhea 07/31/2010 11/16/2022 documented as of this encounter (statuses as of 11/21/2022) [facility]-24-2022 History of Past illness Narrative* Problem Noted Date Resolved Date Incontinence of urine 11/14/2022 11/16/2022 Generalized abdominal pain 11/12/202211/16 Numbness and tingling of foot 07/20/2021 Overview: 07/18/21 EMG/NCS 1. 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 These changes are most severe in degree at the S1 root level where there is moderate active motor axon loss change above and below the knee. At L5 these changes are moderate in degree and active change is only seen below the knee. At L3/4 these changes are moderate to severe in degree but without any evidence of active/ongoing motor fiber loss. Screening studies in the right lower limb show similar, but slightly less significant, active on chronic changes at L5/S1 and moderate chronic (noactive) motor axon loss changes at L3/4 suggesting this is a bilateral process and/or related to significant central canal stenosis. 2. 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 Due to overlapping electrodiagnostic features with #1, precise severity is difficult to determine electrodiagnostically. 04/23/21 bone marrow: does not suggest lymphoplasmacytic lymphoma. 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 04/01/[address] Bhat. ESR 29, CK 554 (weight shirt trimmer). Neg: Lead, B2 microglubulin, B12, CMP, CBC/dif. UPEP+ monoclonal protein 24h w/M spine c/ interp 03/11/21 SPEP + m-protein, K/L ratio 1.17, UPEP negative Bilateral hand, foot and ankle numbness Chronic bilateral low back pain without sciatica 12/18/2020 03/22/2022 Primary localized osteoarthrosis of shoulder reg ion 12/12/2014 03/22/2022 Shoulder pain, right 09/04/2014 03/22/2022 Impaired fasting blood sugar 10/02/201011/2021 Anxiety 09/29/2010 03/22/2022 Diarrhea 07/31/2010 11/16/2022 documented as of this encounter (statuses as of 11/26/2022) [facility] History of Past illness Narrative* Problem Noted Date Resolved Date Incontinence of urine 11/14/2022 11/16/2022 Generalized abdominal pain 11/12/202211/16 Numbness and tingling of foot 07/20/2021 Overview: 07/18/21 EMG/NCS 1. 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 These changes are most severe in degree at the S1 root level where there is moderate active motor axon loss change above and below the knee. At L5 these changes are moderate in degree and active change is only seen below the knee. At L3/4 these changes are moderate to severe in degree but without any evidence of active/ongoing motor fiber loss. Screening studies in the right lower limb show similar, but slightly less significant, active on chronic changes at L5/S1 and moderate chronic (noactive) motor axon loss changes at L3/4 suggesting this is a bilateral process and/or related to significant central canal stenosis. 2. 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 Due to overlapping electrodiagnostic features with #1, precise severity is difficult to determine electrodiagnostically. 04/23/21 bone marrow: does not suggest lymphoplasmacytic lymphoma. 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 04/01/[address] Bhat. ESR 29, CK 554 (weight shirt trimmer). Neg: Lead, B2 microglubulin, B12, CMP, CBC/dif. UPEP+ monoclonal protein 24h w/M spine c/ interp 03/11/21 SPEP + m-protein, K/L ratio 1.17, UPEP negative Bilateral hand, foot and ankle numbness Chronic bilateral low back pain without sciatica 12/18/2020 03/22/2022 Primary localized osteoarthrosis of shoulder reg ion 12/12/2014 03/22/2022 Shoulder pain, right 09/04/2014 03/22/2022 Impaired fasting blood sugar 10/02/201011/2021 Anxiety 09/29/2010 03/22/2022 Diarrhea 07/31/2010 11/16/2022 documented as of this encounter (statuses as of 11/26/2022) [facility] History of Past illness Narrative* Problem Noted Date Resolved Date Incontinence of urine 11/14/2022 11/16/2022 Generalized abdominal pain 11/12/202211/16 Numbness and tingling of foot 07/20/2021 Overview: 07/18/21 EMG/NCS 1. 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 These changes are most severe in degree at the S1 root level where there is moderate active motor axon loss change above and below the knee. At L5 these changes are moderate in degree and active change is only seen below the knee. At L3/4 these changes are moderate to severe in degree but without any evidence of active/ongoing motor fiber loss. Screening studies in the right lower limb show similar, but slightly less significant, active on chronic changes at L5/S1 and moderate chronic (noactive) motor axon loss changes at L3/4 suggesting this is a bilateral process and/or related to significant central canal stenosis. 2. 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 Due to overlapping electrodiagnostic features with #1, precise severity is difficult to determine electrodiagnostically. 04/23/21 bone marrow: does not suggest lymphoplasmacytic lymphoma. 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 04/01/[address] Masci. ESR 29, CK 554 (weight shirt trimmer). Neg: Lead, B2 microglubulin, B12, CMP, CBC/dif. UPEP+ monoclonal protein 24h w/M spine c/ interp 03/11/21 SPEP + m-protein, K/L ratio 1.17, UPEP negative Bilateral hand, foot and ankle numbness Chronic bilateral low back pain without sciatica 12/18/2020 03/22/2022 Primary localized osteoarthrosis of shoulder reg ion 12/12/2014 03/22/2022 Shoulder pain, right 09/04/2014 03/22/2022 Impaired fasting blood sugar 10/02/201011/2021 Anxiety 09/29/2010 03/22/2022 Diarrhea 07/31/2010 11/16/2022 documented as of this encounter (statuses as of 12/09/2022) [facility] History of Past illness Narrative* Problem Noted Date Resolved Date Incontinence of urine 11/14/2022 11/16/2022 Generalized abdominal pain 11/12/202211/16 Numbness and tingling of foot 07/20/2021 Overview: 07/18/21 EMG/NCS 1. 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 These changes are most severe in degree at the S1 root level where there is moderate active motor axon loss change above and below the knee. At L5 these changes are moderate in degree and active change is only seen below the knee. At L3/4 these changes are moderate to severe in degree but without any evidence of active/ongoing motor fiber loss. Screening studies in the right lower limb show similar, but slightly less significant, active on chronic changes at L5/S1 and moderate chronic (noactive) motor axon loss changes at L3/4 suggesting this is a bilateral process and/or related to significant central canal stenosis. 2. 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 Due to overlapping electrodiagnostic features with #1, precise severity is difficult to determine electrodiagnostically. 04/23/21 bone marrow: does not suggest lymphoplasmacytic lymphoma. 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 04/01/[address] Bhat. ESR 29, CK 554 (weight shirt trimmer). Neg: Lead, B2 microglubulin, B12, CMP, CBC/dif. UPEP+ monoclonal protein 24h w/M spine c/ interp 03/11/21 SPEP + m-protein, K/L ratio 1.17, UPEP negative Bilateral hand, foot and ankle numbness Chronic bilateral low back pain without sciatica 12/18/2020 03/22/2022 Primary localized osteoarthrosis of shoulder reg ion 12/12/2014 03/22/2022 Shoulder pain, right 09/04/2014 03/22/2022 Impaired fasting blood sugar 10/02/201011/2021 Anxiety 09/29/2010 03/22/2022 Diarrhea 07/31/2010 11/16/2022 documented as of this encounter (statuses as of 12/16/2022) [facility] History of Past illness Narrative* Problem Noted Date Resolved Date Incontinence of urine 11/14/2022 11/16/2022 Generalized abdominal pain 11/12/202211/16 Numbness and tingling of foot 07/20/2021 Overview: 07/18/21 EMG/NCS 1. 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 These changes are most severe in degree at the S1 root level where there is moderate active motor axon loss change above and below the knee. At L5 these changes are moderate in degree and active change is only seen below the knee. At L3/4 these changes are moderate to severe in degree but without any evidence of active/ongoing motor fiber loss. Screening studies in the right lower limb show similar, but slightly less significant, active on chronic changes at L5/S1 and moderate chronic (noactive) motor axon loss changes at L3/4 suggesting this is a bilateral process and/or related to significant central canal stenosis. 2. 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 Due to overlapping electrodiagnostic features with #1, precise severity is difficult to determine electrodiagnostically. 04/23/21 bone marrow: does not suggest lymphoplasmacytic lymphoma. 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 04/01/[address] Bhat. ESR 29, CK 554 (weight shirt trimmer). Neg: Lead, B2 microglubulin, B12, CMP, CBC/dif. UPEP+ monoclonal protein 24h w/M spine c/ interp 03/11/21 SPEP + m-protein, K/L ratio 1.17, UPEP negative Bilateral hand, foot and ankle numbness Chronic bilateral low back pain without sciatica 12/18/2020 03/22/2022 Primary localized osteoarthrosis of shoulder reg ion 12/12/2014 03/22/2022 Shoulder pain, right 09/04/2014 03/22/2022 Impaired fasting blood sugar 10/02/201011/2021 Anxiety 09/29/2010 03/22/2022 Diarrhea 07/31/2010 11/16/2022 documented as of this encounter (statuses as of 12/17/2022) [facility] History of Past illness Narrative* Problem Noted Date Resolved Date Incontinence of urine 11/14/2022 11/16/2022 Generalized abdominal pain 11/12/202211/16 Numbness and tingling of foot 07/20/2021 Overview: 07/18/21 EMG/NCS 1. 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 These changes are most severe in degree at the S1 root level where there is moderate active motor axon loss change above and below the knee. At L5 these changes are moderate in degree and active change is only seen below the knee. At L3/4 these changes are moderate to severe in degree but without any evidence of active/ongoing motor fiber loss. Screening studies in the right lower limb show similar, but slightly less significant, active on chronic changes at L5/S1 and moderate chronic (noactive) motor axon loss changes at L3/4 suggesting this is a bilateral process and/or related to significant central canal stenosis. 2. 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 Due to overlapping electrodiagnostic features with #1, precise severity is difficult to determine electrodiagnostically. 04/23/21 bone marrow: does not suggest lymphoplasmacytic lymphoma. 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 04/01/[address] Bhat. ESR 29, CK 554 (weight shirt trimmer). Neg: Lead, B2 microglubulin, B12, CMP, CBC/dif. UPEP+ monoclonal protein 24h w/M spine c/ interp 03/11/21 SPEP + m-protein, K/L ratio 1.17, UPEP negative Bilateral hand, foot and ankle numbness Chronic bilateral low back pain without sciatica 12/18/2020 03/22/2022 Primary localized osteoarthrosis of shoulder reg ion 12/12/2014 03/22/2022 Shoulder pain, right 09/04/2014 03/22/2022 Impaired fasting blood sugar 10/02/201011/2021 Anxiety 09/29/2010 03/22/2022 Diarrhea 07/31/2010 11/16/2022 documented as of this encounter (statuses as of 12/18/2022) [facility] History of Past illness Narrative* Problem Noted Date Resolved Date Incontinence of urine 11/14/2022 11/16/2022 Generalized abdominal pain 11/12/202211/16 Numbness and tingling of foot 07/20/2021 Overview: 07/18/21 EMG/NCS 1. 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 These changes are most severe in degree at the S1 root level where there is moderate active motor axon loss change above and below the knee. At L5 these changes are moderate in degree and active change is only seen below the knee. At L3/4 these changes are moderate to severe in degree but without any evidence of active/ongoing motor fiber loss. Screening studies in the right lower limb show similar, but slightly less significant, active on chronic changes at L5/S1 and moderate chronic (noactive) motor axon loss changes at L3/4 suggesting this is a bilateral process and/or related to significant central canal stenosis. 2. 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 Due to overlapping electrodiagnostic features with #1, precise severity is difficult to determine electrodiagnostically. 04/23/21 bone marrow: does not suggest lymphoplasmacytic lymphoma. 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 04/01/[address] Bhat. ESR 29, CK 554 (weight shirt trimmer). Neg: Lead, B2 microglubulin, B12, CMP, CBC/dif. UPEP+ monoclonal protein 24h w/M spine c/ interp 03/11/21 SPEP + m-protein, K/L ratio 1.17, UPEP negative Bilateral hand, foot and ankle numbness Chronic bilateral low back pain without sciatica 12/18/2020 03/22/2022 Primary localized osteoarthrosis of shoulder reg ion 12/12/2014 03/22/2022 Shoulder pain, right 09/04/2014 03/22/2022 Impaired fasting blood sugar 10/02/201011/2021 Anxiety 09/29/2010 03/22/2022 Diarrhea 07/31/2010 11/16/2022 documented as of this encounter (statuses as of 01/11/2023) [facility] History of Past illness Narrative* Problem Noted Date Resolved Date Incontinence of urine 11/14/2022 11/16/2022 Generalized abdominal pain 11/12/202211/16 Numbness and tingling of foot 07/20/2021 Overview: 07/18/21 EMG/NCS 1. 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 These changes are most severe in degree at the S1 root level where there is moderate active motor axon loss change above and below the knee. At L5 these changes are moderate in degree and active change is only seen below the knee. At L3/4 these changes are moderate to severe in degree but without any evidence of active/ongoing motor fiber loss. Screening studies in the right lower limb show similar, but slightly less significant, active on chronic changes at L5/S1 and moderate chronic (noactive) motor axon loss changes at L3/4 suggesting this is a bilateral process and/or related to significant central canal stenosis. 2. 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 Due to overlapping electrodiagnostic features with #1, precise severity is difficult to determine electrodiagnostically. 04/23/21 bone marrow: does not suggest lymphoplasmacytic lymphoma. 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 04/01/[address] Baht. ESR 29, CK 554 (weight shirt trimmer). Neg: Lead, B2 microglubulin, B12, CMP, CBC/dif. UPEP+ monoclonal protein 24h w/M spine c/ interp 03/11/21 SPEP + m-protein, K/L ratio 1.17, UPEP negative Bilateral hand, foot and ankle numbness Chronic bilateral low back pain without sciatica 12/18/2020 03/22/2022 Primary localized osteoarthrosis of shoulder reg ion 12/12/2014 03/22/2022 Shoulder pain, right 09/04/2014 03/22/2022 Impaired fasting blood sugar 10/02/201011/2021 Anxiety 09/29/2010 03/22/2022 Diarrhea 07/31/2010 11/16/2022 documented as of this encounter (statuses as of 03/12/2023) [facility] History of Past illness Narrative* Problem Noted Date Resolved Date Incontinence of urine 11/14/2022 11/16/2022 Generalized abdominal pain 11/12/202211/16 Numbness and tingling of foot 07/20/2021 Overview: 07/18/21 EMG/NCS 1. 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 These changes are most severe in degree at the S1 root level where there is moderate active motor axon loss change above and below the knee. At L5 these changes are moderate in degree and active change is only seen below the knee. At L3/4 these changes are moderate to severe in degree but without any evidence of active/ongoing motor fiber loss. Screening studies in the right lower limb show similar, but slightly less significant, active on chronic changes at L5/S1 and moderate chronic (noactive) motor axon loss changes at L3/4 suggesting this is a bilateral process and/or related to significant central canal stenosis. 2. 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 Due to overlapping electrodiagnostic features with #1, precise severity is difficult to determine electrodiagnostically. 04/23/21 bone marrow: does not suggest lymphoplasmacytic lymphoma. 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 04/01/[address] Bhat. ESR 29, CK 554 (weight shirt trimmer). Neg: Lead, B2 microglubulin, B12, CMP, CBC/dif. UPEP+ monoclonal protein 24h w/M spine c/ interp 03/11/21 SPEP + m-protein, K/L ratio 1.17, UPEP negative Bilateral hand, foot and ankle numbness Chronic bilateral low back pain without sciatica 12/18/2020 03/22/2022 Primary localized osteoarthrosis of shoulder reg ion 12/12/2014 03/22/2022 Shoulder pain, right 09/04/2014 03/22/2022 Impaired fasting blood sugar 10/02/201011/2021 Anxiety 09/29/2010 03/22/2022 Diarrhea 07/31/2010 11/16/2022 documented as of this encounter (statuses as of 03/17/2023) [facility] History of Past illness Narrative* Problem Noted Date Resolved Date Incontinence of urine 11/14/2022 11/16/2022 Generalized abdominal pain 11/12/202211/16 Numbness and tingling of foot 07/20/2021 Overview: 07/18/21 EMG/NCS 1. 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 These changes are most severe in degree at the S1 root level where there is moderate active motor axon loss change above and below the knee. At L5 these changes are moderate in degree and active change is only seen below the knee. At L3/4 these changes are moderate to severe in degree but without any evidence of active/ongoing motor fiber loss. Screening studies in the right lower limb show similar, but slightly less significant, active on chronic changes at L5/S1 and moderate chronic (noactive) motor axon loss changes at L3/4 suggesting this is a bilateral process and/or related to significant central canal stenosis. 2. 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 Due to overlapping electrodiagnostic features with #1, precise severity is difficult to determine electrodiagnostically. 04/23/21 bone marrow: does not suggest lymphoplasmacytic lymphoma. 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 04/01/[address] Bhat. ESR 29, CK 554 (weight shirt trimmer). Neg: Lead, B2 microglubulin, B12, CMP, CBC/dif. UPEP+ monoclonal protein 24h w/M spine c/ interp 03/11/21 SPEP + m-protein, K/L ratio 1.17, UPEP negative Bilateral hand, foot and ankle numbness Chronic bilateral low back pain without sciatica 12/18/2020 03/22/2022 Primary localized osteoarthrosis of shoulder reg ion 12/12/2014 03/22/2022 Shoulder pain, right 09/04/2014 03/22/2022 Impaired fasting blood sugar 10/02/201011/2021 Anxiety 09/29/2010 03/22/2022 Diarrhea 07/31/2010 11/16/2022 documented as of this encounter (statuses as of 03/31/2023) [facility] NoteHNO ID: [id number] Author: Lillie Olivier RN Service: ? Author Type: Registered Nurse Type: Nursing Progress Note Filed: 11/14/2022 4:20 AM Note Text: 0415 Report called to [facility] at [address]. 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 Nights: [phone], please page [facility] Night coverage pager [phone]. Subjective INTERVAL HPI: Lateral chest wall pain has improved. Has not had any bowel movements today. Back pain has been improved. Denies any chest pain or shortness of breath. Denies any fever, chills, nausea, vomiting, abdominal pain. Current Facility-Administered Medications Medication Dose Route Frequency gabapentin 600 mg cap(s) (NEURONTIN) 600 mg ORAL TID lisinopril 20 mg tab(s) (ZESTRIL, PRINIVIL) 20 mg ORAL DAILY amLODIPine 10 mg tab(s) (NORVASC) 10 mg ORAL AT BEDTIME docusate sodium 100 mg cap(s) (COLACE) 100 mg ORAL BID PRN traZODone (DESYREL) tab(s) 150 mg 150 mg ORAL AT BEDTIME NaCl 0.9% iv flush bag 20 mL INTRAVENOUS PRN ondansetron orally disintegrating 4 mg tab(s) (ZOFRAN ODT) 4 mg ORAL q 6 H PRN Or ondansetron (PF) 4 mg injection (ZOFRAN) 4 mg INTRAVENOUS q 6 H PRN acetaminophen 650 mg tab(s) (TYLENOL) 650 mg ORAL q 6 H PRN oxyCODONE IR 5 mg tab(s) (ROXICODONE) 5 mg ORAL q 6 H PRN lidocaine 4 % 1 Patch (SALONPAS) 1 Patch TRANSDERMAL DAILY AT 9 PM And lidocaine patch - REMOVE OTHER DAILY And lidocaine - VERIFY PATCH OTHER q 8 H morphine 1 mg injection 1 mg INTRAVENOUS q 4 H PRN psyllium 1 Packet (METAMUCIL) 1 Packet ORAL DAILY Objective PHYSICAL EXAM: BP 149/93 Pulse 66 Temp (Src) 98.2 (Oral) Resp 20 Ht 5' 11 (1.80m) Wt 213 lb 4.8 oz (96.8kg) SpO2 97% BMI 29.76 kg/(m2). O2 Therapy: Room Air Physical Exam Performed GENERAL: Alert, no distress, cooperative SKIN: Skin color, texture, turgor normal. No rashes or lesions. LUNGS: Lungs clear to auscultation, Good diaphragmatic excursion CARDIAC: Normal S1 and S2; no rubs, murmurs, or gallops ABDOMEN: Abdomen soft, non-tender, BS normal, No masses or organomegaly EXTREMITIES: Extremities normal, no deformities, edema, clubbing or skin discoloration. Good capillary refill., No ulcers Lines, Drains, and Airways Line Duration Peripheral 11/11/222026 Short Right Antecubital 20 Gauge 2 days DATA: Diagnostic tests reviewed for today's visit: Most recent labs Most recent imaging Most recent EKG Assessment/Plan Problem List Intractable low back pain POA: Yes Diarrhea POA: Yes Hypertension POA: Yes Chronic hepatitis C without hepatic coma (HCC) POA: Yes Generalized abdominal pain POA: Yes Rib fractures POA: Yes HOSPITAL COURSE: Miroslava Peralta is a 72 year old male presented with past medical history of hypertension, status post decompressive laminectomy in March 20, 2022 with abscess IANDD on 03/29/2022 presented to ED with complaint of diarrhea, intractable low back pain, bilateral leg weakness and difficulty ambulating over period of 7-8 months Active Problems: Intractable low back pain POA: Yes Bilateral leg weakness Difficulty ambulating -rule out cauda equina syndrome, epidural abscess, discitis, DJD, deconditioning -saddle anesthesia right > left, rectal tone decreased (checked by ED staff), general leg weakness bilaterally equally -follow up with MRI lumbar spine showed Postoperative and spondylotic changes superimposed on evelopmentally short pedicles with varying degrees of mild-moderate canal and foraminal compromise, as detailed. Reviewed MRI results with Dr. Portillo who stated benign findings . -pain control -Discussed with Dr. Portillo (patient's neurosurgeon outpatient) who stated who recommended to follow-up with MRI lumbar spine results and pain control. -ED staff discussed with neurosurgeon on-call at [facility] who recommended MRI of lumbar spine. -Patient has been accepted at [facility] for neurosurgery evaluation pending bed availability. -fall precaution -PT-OT eval Diarrhea POA: Yes Generalized abdominal pain POA: Yes -Discussed with Dr. Portillo (patient's neurosurgeon outpatient) who stated the diarrhea is usually neurogenic and would likely see more constipation if the cause is neurogenic. -CT of abdomen pelvis showed no acute intra-abdominal or pelvic abnormality -Rule out infectious etiology -Ordered C. difficile and stool culture -Consulted gastroenterology Chest pain POA; Yes, likely due to rib fractures -He has eft-sided lateral chest wall pain due to rib fractures. Pain is sharp in nature 8 out of 10. -EKG showed NSR with isolated T-wave inversion in on leads 3 and aVF which was present on prior ekg from 02/23/22 -CXR showed Known LEFT anterior acute-subacute 6th through 9th rib fractures unchanged from radiographs (more content not included)...[facility] [id number] NoteHNO ID: [id number] Author: Theresa Flannery RN Service: Care Management Author Type: Registered Nurse Type: Care Mgt Initial Assessment Filed: 11/13/2022 8:50 AM Note Text: CARE MANAGEMENT: ASSESSMENT AND DISCHARGE PLAN SERVICE DATE: November 13, 2022 SERVICE TIME: 8:46 AM PRIMARY CARE PHYSICIAN: Marbella Zaidi PA-C Primary Contact: Extended Emergency Contact Information Primary Emergency Contact: Ailin Knott Mobile Relation: Daughter Secondary Emergency Contact: Jocelin Dupree Mobile Relation: Friend ADMISSION STATUS: Inpatient Insurance Provider: [employer]SE[employer] NEEDS PRIOR TO DISCHARGE Needs Prior to Discharge: To Be Determined;OT/PT Evaluation;Other: See Comment (Plan is transfer to [facility] for Neurosurgery eval) POTENTIAL TRANSITION PLANS To Be Determined Based on clinical judgement, Care Management will address the following needs: Medical;Functional Patient's perception of need for this admission: I'm having a hard time functioning due to the back pain and weakness ADVANCE DIRECTIVES Current Advance Directive: Health Care Power of Fuel Testing Technician;Living Will In Chart: Yes Up To Date and Valid: Yes MS/BEHAVIOR Baseline Mental Status Prior to this Illness what was the patient's Baseline Mental Status?: Alert AND Oriented Prior to this illness, has anyone described the patient having any of the following behaviors?: Not Applicable Relationship of the informant to the patient:: Self READMISSION Last Discharge Date: 04/04/22 Is this Within the Past 30 days? 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 Friend to transport Recommendation: n/a Use of any community resources?: No Situation: lives alone; was independent with walker and cane; still driving Recommendation: monitor; may need OP therapy as indicated Does the patient have a stable and supportive living arrangement and home setting?: Yes Situation: lives alone Recommendation: monitor Are there any potential risks or gaps identified by risk/functional/fall,etc. scores in the EMR?: Yes Situation: Fall risk Recommendation: Safety fall precautions Any potential risks related to substance abuse and/or behavioral health?: No Situation: n/a Recommendation: n/a Based on clinical judgement, Care Management will address the following needs: Medical;Functional CAREGIVER ASSESSMENT Caregiver is ready, willing and able to meet the patient's needs as recommended by the inter-professional team:: Other: See Comment Patient's transition needs and plan for meeting these needs: Return to critical access hospital. Does have limited support system. MEDICAL Medical Needs: Two or more chronic diseases Health Issues Impacting Discharge Plan: Newly diagnosed;Chronic Newly Diagnosed: Rib fractures/Chest Pain Chronic: Intractable low back pain/ chi leg weakness/ chronic Hep C Medication Adherance I am convinced of the importance of my prescription medication: 0 - Agree Completely I worry that my prescription medication will do more harm than good to me : 0 - Disagree Completely I feel financially burdened by my [id number] expenses for my prescription medication:: 0 - Disagree Completely Risk Score: 0 Patient is categorized as: Low risk < 2 SOCIAL Living Arrangements: Home Lives With: Alone Financial Resources: Retired Supportive Patient Contact:: Yes Contact Resources: Family Family Name/Phone: Ailin/ daughter/ [phone] Contact Resources: Family Family Name/Phone: Ailin/ daughter/ [phone] Health Literacy How often do you need to have someone help you when you read instructions, pamphlets, or other written material from your doctor or pharmacy? : 1 - Never How confident are you filling out medical forms by yourself?: 1 - Extremely Food Insecurity: No Food Insecurity Worried About Running Out of Food in the Last Year: Never true Ran Out of Food in the Last Year: Never true Financial Resource Strain: Low Risk Difficulty of Paying Living Expenses: Not hard at all Transportation Needs: No Transportation Needs Lack of Transportation (Medical): No Lack of Transportation (Non-Medical): No Housing Stability: Low Risk Unable to Pay for Housing in the Last Year: No Number of Places Lived in the Last Year: 1 Unstable Housing in the Last Year: No BEHAVIORAL/COGNITIVE Psychosocial Psychosocial Needs: (more content not included)...[facility] [id number] Miscellaneous Notes* Telephone Encounter - Deann Domínguez MD - 11/12/2022 7:27 AM EST [facility], 72 yo male with remote decompression laminectomy by Dr. Portillo c/b abscess at incision. Patient had healed well, and about 2 months ago began having diarrhea stools with fecal incontinence, requiring adult diapers. Since then has developed mild LE weakness. Spoke with friends who encouraged him to seek ER care tonight. Exam in ER with decreased rectal tone, mild saddleparesthesias. PVR showed 340 mL retained urine. ED spoke with Neurosurgery Dr. Claudio who asked for T spine and LS spine MRIs and transfer to [facility] for ongoing evaluation. Deann Domínguez MD 11/11/22 documented in this encounterFlower Hospital12-15-2022 Miscellaneous Notes* Telephone Encounter - Andra Hough MD - 11/05/2022 1:38 PM EST Please notify the patient that his FSH continues to be elevated As we discussed during the appt, I would like him to proceed with MRI pituitary Order placed Andra Hough MD documented in this encounterFlower Hospital12-13-2022 Miscellaneous Notes* Telephone Encounter - Logan Aviles LPN - 11/03/2022 5:07 PM EST TC to pt, notified of provider response. He verbalized understanding. Logan Aviles LPN * Telephone Encounter - Abena Beckford APRN.MYRA - 11/03/2022 4:51 PM EST Can please let patient know that I received his xray results. It does look like he has 4 fractured ribs on the left. I did reach out to [facility] and his CT report was addended. Please keep usupdated on how he is doing. Abena Beckford APRN.MYRA documented in this encounterFlower Hospital12-12-2022 History of Present illness Narrative* Charlene Pablo RT(R) - 11/02/2022 12:00 PM EST Radiology Service Progress Note PATIENT NAME: Miroslava Peralta DATE OF SERVICE: November 02, 2022 TIME: 11:47 AM PATIENT IDENTITY VERIFICATION COMPLETED USING TWO (2) IDENTIFIERS: Name and Date of confirmedby patient verbally. FALL SCREENING: Has the patient had 2 falls in the last year or 1 fall with injury or currently using an Ambulatory Assistive Device (Walker, Cane, Wheelchair, Crutches, etc.)? Yes, Patient High Riskfor Falls What interventions were put in place to prevent falls during this visit? Offered Assistance with Transfers/Clothing and Increased Observations by Caregivers PATIENT GENDER DATA: Male PATIENT RELEVANT IMPLANT DATA REVIEWED: Yes RADIOLOGY DEPARTMENT: General X-ray: Exam(s) Completed: Rib X-Ray: Left PERIPHERAL IV DATA: Not applicable SIGNED BY: RT Lg([place]) November 02, 2022 11:47 AM documented in this encounterFlower Hospital12-12-2022 Instructions* Patient Instructions* Abena Beckford APRN.CNP - 11/02/2022 11:40 AM EST Get the xray. Continue ibuprofen. Ice to the back. Let us know if no improvement/worsening. documented in this encounterFlower Hospital12-12-2022 History of Present illness Narrative* Abena Beckford APRN.CNP - 11/02/2022 11:14 AM EST This is a 72 year old male who presents today with: Patient presents with: ER F/U: [facility] ER follow up 10/27 dx: broken ribs after falling at home HISTORY OF PRESENT ILLNESS: Miroslava Peralta is a 72 year old male. Patient presents with: ER F/U: [facility] ER follow up 10/27 dx: broken ribs after falling at home Pt presents today with complaint of ER follow-up. He went to the ER on 10/27/22 after a fall. Per the ER records, patient had a CT of the chest which showed an obvious rib fracture on the left lower side. There was no hemo or pneumothorax. No obvious injury to the spleen or the kidney. Patient received a dose of Toradol and was sent home with script for pain medication. On the CT report on file, there were no acute abnormalities. Refers that over the last couple of days, he has bene having more pain in the left thoracic and upper back. Hx of chronic back problems. Hurts to lay on his back. Refers that he has been taking oxycodone for pain -- was taking about every 6 hours for pain -- last dose was last night -- currently out. He is also using ibuprofen. Refers that he has been conscientious to cough and deep breath. 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 SKIN BIOPSY HX ALLERGIES Cardizem [Diltiazem Hcl], Diovan [Valsartan], Hyzaar [Losartan- Hydrochlorothiazide], and Lopressor [Metoprolol Tartrate] MEDICATIONS Current Outpatient Medications Medication Sig amLODIPine (NORVASC) 10 mg tablet Take 1 tablet by mouth once daily. gabapentin (NEURONTIN) 300 mg capsule Take 2 capsules by mouth three times daily for 90 days. traZODone (DESYREL) 150 mg tablet Take 1 tablet by mouth daily at bedtime. lisinopril (ZESTRIL, PRINIVIL) 20 mg tablet Take 1 tablet by mouth once daily. tamsulosin (FLOMAX) 0.4 mg Take 1 capsule by mouth daily at bedtime. docusate sodium (COLACE) 100 mg capsule Take 1 capsule by mouth twice daily. omega-3 fatty acids/vitamin e(FISH OIL 1,000 MG CAP) Take by mouth. No current facility-administered medications for this visit. FAMILY HISTORY Problem Relation Age of Onset Cancer Mother breast cancer Hypertension Mother None Father father in train accident at yuni age Hypertension Sister Social History Tobacco Use Smoking status: Former Packs/day: 2.00 Years: 23.00 Pack years: 46.00 Types: Cigarettes Quit date: 11/22/1992 Years since quittin.9 Smokeless tobacco: Never Vaping Use Vaping Use: Never used Substance Use Topics Alcohol use: Not Currently Comment: quit in 1991. Drug use: No Comment: Quit drugs in ~. EXAM: BP 144/88 Pulse 79 Resp 18 SpO2 98% PHYSICAL EXAM: General Appearance: Well appearing, alert, in no acute distress, well-hydrated, well nourished.. Skin: Skin color, texture, turgor normal, no suspicious rashes or lesions. Head: Normocephalic, no masses, lesions, tenderness or abnormalities. Eyes: Anicteric sclera. Extraocular movements are intact. . Back:no pain to palpation of vertebrae, + tenderness to the left thoracic back and the left lateralribs. No crepitus. No bruising. Lungs: Lungs clear to auscultation. No wheezing, rhonchi, rales.. Heart: RRR without murmur, gallop, or rubs. No ectopy. Neurologic: Gait normal. ASSESSMENT/PLAN: 1. Closed fracture of multiple ribs of left side with routine healing, subsequent encounter - ICD9:V54.19, ICD10: S22.42XD Will go ahead and repeat xray. Refill percocet. Continue ibuprofen. Ice to the area. Continue cough/deep breath. Notify provider of new/worsening symptoms. - XR RIBS/CHEST 3V AP RIB/OBLS/CXR LEFT - OXYCODONE-ACETAMINOPHEN 5 MG-325 MG TABLET Discussed treatment plan and patient voices understanding. Patient's questions answered appropriately. Medications and potential side effects were discussed and patient voices understanding. Return to the office as scheduled or as needed for worsening/no improvement. Abena Beckford APRN.DIRECTOR OF TESTING documented in this encounterFlower Hospital11-09-2022 NoteHNO ID: [id number] Author: Brock Portillo MD Service: ? Author Type: Physician Type: Progress Notes Filed: 09/30/2022 8:53 AM Note Text: SPINE SURGERY ESTABLISHED VISIT DATE OF SERVICE: 09/30/2022 DATE OF LAST VISIT: 04/16/2022 SUBJECTIVE: HPI:Miroslava Peralta is a 72 year old male presenting alone. This is a telephone encounter Since last time I talked to the patient he reports ongoing bilateral hand numbness and difficulty with ambulation. We did discuss MRI findings showing moderate stenosis C3-4. MEDICATIONS: amLODIPine (NORVASC) 10 mg tablet Take 1 tablet by mouth once daily. gabapentin (NEURONTIN) 300 mg capsule Take 2 capsules by mouth three times daily for 90 days. traZODone (DESYREL) 150 mg tablet Take 1 tablet by mouth daily at bedtime. lisinopril (ZESTRIL, PRINIVIL) 20 mg tablet Take 1 tablet by mouth once daily. tamsulosin (FLOMAX) 0.4 mg Take 1 capsule by mouth daily at bedtime. docusate sodium (COLACE) 100 mg capsule Take 1 capsule by mouth twice daily. omega-3 fatty acids/vitamin e(FISH OIL 1,000 MG CAP) Take by mouth. Patient Entered Questionnaires Spine Questions 12/29/2021 Pain Location: Lower back Pain Duration: 1 to 5 years Pain over last 6 months: Every day or nearly every day in the past 6 months Symptoms from neck/cervical spine: No Employment Status: Disabled due to back pain, permanently or temporarily Off work 1 month or more due to back/neck pain: Does not apply Applied for/receive disability/WC due to low back/neck pain Does not apply Involved in law suit/legal claim: No PROMIS Score Percentiles Physical Health 12/29/2021 Physical Function Percentile 0 Sleep Percentile 27* Fatigue Percentile 16* Pain Interference Percentile 2 PROMIS SOCIAL ROLE SCORE 12/29/2021 Social Role Satisfaction Percentile 4 PROMIS Global Health Scale 12/29/2021 Physical Health Percentile 7 Mental Health Percentile 5 Percentiles provide an indication of how the patient's score ranks in relation to the general population. Higher percentile rankings indicate better function/quality of life. 50th percentile is the average of the general population and indicates half of respondents had a worse score. Depression Screening: PHQ-9 12/29/2021 Score 16 PHQ-9 Self-harm Question 12/29/2021 Thoughts that you would be better off , or of hurting yourself in some way 0 PHQ-9 Self-Harm (Item 9) response options: 0 Not at all 1 Several days 2 More than half the days 3 Nearly every day PHQ-9 Levels: 0-4 No to mild depression 5-9 Mild depression 10-14 Moderate depression 15-19 Moderately severe depression 20-27 Severe depression OBJECTIVE: PHYSICAL EXAM: Limited due to telephone counter ASSESSMENT/PLAN (M47.12) Cervical spondylosis with myelopathy (primary encounter diagnosis) I did talk to the patient about possible consideration of surgical intervention would include posterior cervical laminoplasty. I would rather let him recover completely from the lumbar laminectomy before surgery consideration. I will see the patient again in November for revisit surgical discussion. Follow up: 2 months I spent 15 minutes discussing patient his current symptoms and future plan SIGNATURE: Brock Portillo MD PATIENT NAME: Miroslava Peralta DATE: September 30, 2022 TIME: 8:21 AM PAGER:[facility] [id number] Miscellaneous Notes* Telephone Encounter - Yudy Nelson Ma - 09/28/2022 4:05 PM EST Patient was notified of results. He denies taking any OTC testosterone supplements. He will call back to schedule endo appointment * Telephone Encounter - Marbella Zaidi PA-C - 09/27/2022 6:03 AM EST Please advise: Total testosterone shows normal decline for age, free testosterone is normal (active hormone). FSH is low indicated possible testicular failure but LH and estradiol are normal. What if anything is he supplementing OTC? Recommend consult to endo Telephone on 09/27/22 CONSULT TO ENDOCRINOLOGY Duong Tineo PA-C documented in this encounterFlower Hospital10-28-2022 Miscellaneous Notes* Telephone Encounter - Marbella Zaidi PA-C - 09/18/2022 7:09 AM EDT I reviewed MRI with him at the as below Please let him know Dr. Portillo wrote he will set up a phone f/u. Duong Tineo PA-C * Telephone Encounter - Barbara Chao - 09/17/2022 1:46 PM EDT Patient is calling back wondering if somebody can call him to go over his MRI results. Please advise, augusto * Telephone Encounter - Hazel Grubbs LPN - 09/16/2022 4:53 PM EDT Patient calling asking if you could give him his MRI results please. Please advise 08/28/2022 1:38 PM - Radiology, Oru In Impression IMPRESSION: Cervical spondylosis as described worst at C3-C4 moderate to severe canal narrowing and mild chronic cord compression, without abnormal cord signal. Anatomic Variant: None. Assume 7 cervical vertebrae with counting from the craniocervical junction. Design Editor: PSCB Transcribe Date/Time: Aug 28 2022 1:31P Dictated by : JOSHUA SILVA MD This examination was interpreted and the report reviewed and electronically signed by: JOSHUA SILVA MD on Aug 28 2022 1:35PM EST Results-Findings * * *Final Report* * * DATE OF EXAM: Aug 28 2022 1:23PM [facility] [id number] - MRI CERVICAL SPINE WO IVCON / PROCEDURE REASON: Spinal stenosis of cervical region * * * * Physician Interpretation * * * * EXAMINATION: MRI CERVICAL SPINE WO IVCON CLINICAL HISTORY: Cervical stenosis TECHNIQUE: Routine cervical spine MR protocol without gadolinium. MQ: [id number] COMPARISON: Cervical spine radiograph 04/09/22. RESULT: Counting reference: Craniocervical junction. Anatomic Variants: None. Localizer images: No significant findings. Alignment: Grade 1 degenerative retrolisthesis of C3 on C4 and C5 on C6. Grade 1 degenerative anterolisthesis of C2 on C3 and C7-T1. Craniocervical junction: Craniocervical junction is normal. Cord: The visualized cord is within normal limits of signal intensity and morphology. Bone marrow signal/fracture: Type I degenerative change at C2 C4, C4-C5, C5-C6, and T1-T2. No evidence of pathologic marrow infiltration. No evidence of prior fracture. Cervical soft tissues: The paraspinal soft tissues are within normal limits. C2-C3: Canal and foramina are patent. C3-C4: There is disc degeneration with disc osteophyte complex, uncovertebral spurring, and facet arthropathy causing moderate to severe canal narrowing with mild chronic cord compression, moderate right and moderate to severe left foraminal stenosis. C4-C5: There is disc degeneration with disc osteophyte complex, uncovertebral spurring, and facet arthropathy causing moderate canal narrowing with mild cord flattening, and mild to moderate left foraminal stenosis. C5-C6: There is disc degeneration with disc osteophyte complex, uncovertebral spurring, and facet arthropathy causing moderate canal narrowing and mild cord flattening, moderate right and severe left foraminal stenosis. C6-C7: Canal and foramina are patent. Disc degeneration with disc osteophyte complex noted. C7-T1: Canal and foramina are patent. Degeneration with disc osteophyte complex at T1-T2, T2-T3, and T3-T4. documented in this encounterFlower Hospital10-21-2022 Miscellaneous Notes* Telephone Encounter - Marialuisa Mishra LPN - 09/11/2022 1:13 PM EDT Please file this new order. * Telephone Encounter - Yudy Nelson Ma - 09/11/2022 8:01 AM EDT Please refile order documented in this encounterFlower Hospital10-20-2022 History of Present illness Narrative* Marbella Zaidi PA-C - 09/10/2022 11:00 AM EDT 72 year old male with c/o here for 3 mo follow up Current concerns about recent MRI results and wants to know next step. Essential hypertension Current meds: Amlodipine 10mg daily Lisinopril 20mg daily [id number] HS Patient is compliant with meds Yes Monitors bp at home: No. If yes, readings: Denies side effects: Yes. Chest pain: No. Dyspnea: No. Edema: No. Palpitations: No. Syncope: No. Headache: No. Dizziness: No. Last 3 Encounter BP Readings: Date: BP: 08/10/2022 142/91 06/18/2022 124/86 06/09/2022 132/76 Last 2 Encounter Wt Readings: Date: Wt: 08/10/2022 101.6 kg (224 lb) 06/18/2022 101.2 kg (223 lb) Mgus (monoclonal gammopathy of unknown significance) Sx have worsened with paresthesias but maybe r/t recent surgeries. 06/13/[address] WO: adenomas L 2.6cm, R 1.9cm 04/3021 CT chest w/IVC: neg except a few borderline mediastinal lymph nodes 05/21/21 CT ab/pel w/IVC negative except bilat adrenal nodules 05/07/2022 f/u Dr. Bhat: recheck 1 year. 04/23/21 bone marrow: does not suggest lymphoplasmacytic lymphoma. 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 04/01/21 bone survey no destructive lesions identified 04/01/[address] Bhat. ESR 29, CK 554 (weight shirt trimmer). Neg: Lead, B2 microglubulin, B12, CMP, CBC/dif. UPEP+ monoclonal protein 24h w/M spine c/ interp 03/11/21 SPEP + m-protein, K/L ratio 1.17, UPEP negative Bilateral hand, foot and ankle numbness Neurogenic claudication (hcc) Current sx with persistent pain back and bilateral legs with electric shocklike feeing radiating into both calves and feet which are numb. Notes significant gait change: has to walk with legs wide to maintain balance, gait insecurity. Notes partial foot bilaterally, > left. States shins and calves are shot : weak, wobbles with walking. Interval history: 08/28/2022 MRI C-spine cervical spondylolysis worst C3-4 moderate to severe canal narrowing with mild chronic cord compression, without abnormal cord signal. 08/10/2022 F/U Dr. Portillo: signs cervical myelopathy 04/16/2022 Mayra Gale PA-C notes using walker, maintaining PT exercises 04/01/2022: readmitted: reexploration of lumbar wound, repair of durotomy, evauation hematoma 03/31/2022 post-op visit info: doing home PT,developed severe lumbar pain with radiation into rightglute and intermittent electric like pains shooting up to neck 03/20/2022 S/p laminectomy decompression, fasciotomy, foraminotmy L3-5 Status post replacement of right shoulder joint Status post hip replacement, unspecified laterality Stable, doing well with both joints. Taking nothing for pain Obesity, class i, bmi 30-34.9 Vitals 06/18/2022 08/10/2022 08/10/2022 09/10/2022 WEIGHT in POUNDS 223 lb 224 lb 221 lb WEIGHT in KILOGRAMS 101.152 kg 101.606 kg 100.245 kg Chronic hepatitis c without hepatic coma (hcc) Resolved with treatment Hypogonadism in male Erections nonexistent No sexually active Hasn't tried to have any climax BPH with obstruction Current medications: Tamsulosin 0.4mg daily HS Nocturia 2-3 times Daytime: all the time but drinks lots of water. Mildly weak stream, starts and stops at time No hesitancy. Constipation Current medications: Docusate 100mg twice a daily: not using. Notes stool streaks on underwear Has to strain some with BM Stopped ETOH in early 40s, quit smoking the year following. 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 SKIN BIOPSY HX Social History Tobacco Use Smoking status: Former Packs/day: 2.00 Years: 23.00 Pack years: 46.00 Types: Cigarettes Quit date: 11/22/1992 Years since quittin.8 Smokeless tobacco: Never Vaping Use Vaping Use: Never used Substance Use Topics Alcohol use: Not Currently Comment: quit in 1991. Drug use: No Comment: Quit drugs in ~. ACTIVE PROBLEM LIST Hypertension Sleeping Difficulty S/P Hip Replacement S/P Shoulder Joint Replacement Chronic Hepatitis C Without Hepatic Coma (Hcc) Mgus (Monoclonal Gammopathy of Unknown Significance) Former Smoker Neurogenic Claudication (Hcc) Obesity, Class I, Bmi 30-34.9 S/P Laminectomy Post-Op Pain Chronic Vertigo Current Outpatient Medications Medication Sig Dispense Refill amLODIPine (NORVASC) 10 mg tablet Take 1 tablet by mouth once daily. 90 tablet 1 gabapentin (NEURONTIN) 300 mg capsule Take 2 capsules by mouth three times daily for 90 days. 540 capsule 0 traZODone (DESYREL) 150 mg tablet Take 1 tablet by mouth daily at bedtime. 90 tablet 1 lisinopril (ZESTRIL, PRINIVIL) 20 mg tablet Take 1 tablet by mouth once daily. 90 tablet 1 tamsulosin (FLOMAX) 0.4 mg Take 1 capsule by mouth daily at bedtime. (Patient not taking: Reported on 08/10/2022) 30 capsule 5 docusate sodium (COLACE) 100 mg capsule Take 1 capsule by mouth twice daily. (Patient not taking: Reported on 08/10/2022) 20 capsule 0 omega-3 fatty acids/vitamin e(FISH OIL 1,000 MG CAP) Take by mouth. 0 No current facility-administered medications for this visit. COVID-19 VACCINE(1) Never done HEPATITIS A(1 of 2 - Risk 2-dose series) Never done BP CONTROLLED (<130/80) Never done DEPRESSION ASSESSMENT Never done INFLUENZA(1) due on 07/23/2022 EXAM: BP 144/84 Pulse 93 Resp 16 Wt 100.2 kg (221 lb) SpO2 97% BMI 30.82 kg/m Last 14 BP Last 14 Encounter BP Readings: Date: BP: 09/10/2022 144/84 08/10/2022 142/91 06/18/2022 124/86 06/09/2022 132/76 05/12/2022 122/74 05/07/2022 166/77 04/16/2022 117/73 04/01/2022 164/101 03/29/2022 142/97 03/20/2022 122/65 03/19/2022 126/68 02/23/2022 154/102 01/07/2022 146/89 12/29/2021 134/90 Pleasant adult man in no acute distress. Alert and oriented all spheres. Normal affect and cognition. Speech normal. No deficits to learning or comprehension. Skin warm, dry, pink to lips and nailbeds. Normal turgor. Respirations regular and unlabored. HEENT: NCAT. No scleral icterus or conjunctival injection. TM's clear. Nose and oropharynx free from injection or lesion. Oral membranes moist and pink. No cervical lymph nodes. Thyroid non-tender, no masses, or enlargement. Carotids pulses 2+/4+ without bruits. No JVD with HOB at 30 degrees. Chest is normal shape. Lungs are clear to all palencia with good air exchange through out. HRRR without murmur or gallop. No lifts, heaves, or rubs. Extrem: no clubbing or cyanosis. Edema: none. Extremities are warm and pink with prompt capillary refill. MSK: retains solid muscle tone on arms and chest. Legs are more atrophic than last exam. Neuro: wide based gait with insecurity, hold on to furniture intermittently. Weak to dorsiflexion right, + foot drop on left Spotty sensation bilateral calves to feet, to monofilament, sharp/ dull. No movement on babinski either side. Retractile penis, small testicles, mild gynecomastia ASSESSMENT/PLAN: 1. Essential hypertension - ICD9: 401.9, ICD10: I10 (primary diagnosis) - suboptimal control - Recommended regular aerobic exercise. - Recommend home blood pressure monitoring, to bring results in on next visit - Goal of BP <130/80 2. MGUS (monoclonal gammopathy of unknown significance) - ICD9: 273.1, ICD10: D47.2 Stable, f/u [address] Bhat 3. Neurogenic claudication (HCC) - ICD9: 435.1, ICD10: G95.19 Persistent and possibly worse. Says surgeon says may take a year. 4. S/P laminectomy - ICD9: V45.89, ICD10: Z98.890 5. Status post replacement of right shoulder joint - ICD9: V43.61, ICD10: Z96.611 Doing well 6. Status post hip replacement, unspecified laterality - ICD9: V43.64, ICD10: Z96.649 Doing well 7. Obesity, Class I, BMI 30-34.9 - ICD9: 278.00, ICD10: E66.9 Stable - Behavioral intervention 8. Chronic hepatitis C without hepatic coma (HCC) - ICD9: 070.54, ICD10: B18.2 resolved 9. Hypogonadism in male - ICD9: 257.2, ICD10: E29.1 - TESTOSTERONE, FREE AND TOTAL Check labs, hypogonadism Follow up on labs F/u office 6 months Sending inquiries to Dr. Singh and Dr. Portillo on progressive ataxia and gait weakness on opinion and suggestions for additional work up. Marbella Zaidi PA-C [facility]10-07-[facility] History of Present illness Narrative* RT Earl(R) - 08/28/2022 1:00 PM EDT Radiology Service Progress Note PATIENT NAME: Miroslava Peralta DATE OF SERVICE: August 28, 2022 TIME: 1:19 PM PATIENT IDENTITY VERIFICATION COMPLETED USING TWO (2) IDENTIFIERS: Name and Date of confirmedby patient verbally. FALL SCREENING: Has the patient had 2 falls in the last year or 1 fall with injury or currently using an Ambulatory Assistive Device (Walker, Cane, Wheelchair, Crutches, etc.)? Yes, Patient High Riskfor Falls What interventions were put in place to prevent falls during this visit? Instructed Patient to Callfor Help if Needed, Offered Assistance with Transfers/Clothing, Instructed Patient to Remain Seated(Not on Exam Table) Until Exam, and Increased Observations by Caregivers PATIENT GENDER DATA: Male PATIENT RELEVANT IMPLANT DATA REVIEWED: Yes RADIOLOGY DEPARTMENT: MR; Exam(s) Completed: Spine: Cervical spine PERIPHERAL IV DATA: Not applicable SIGNED BY: RT Earl(R) August 28, 2022 1:19 PM documented in this encounterFlower [facility]09-19-2022 History of Present illness Narrative* Brock Portillo MD - 08/10/2022 10:55 AM EDT SPINE SURGERY FOLLOW UP SERVICE DATE: 08/10/2022 SURGERY DATE: 04/01/22 L3-5 laminectomy Miroslava Peralta is seen for 4 month post operative follow up. Since last time I saw the patient he reports improvement in his low back and bilateral leg pain. Hecontinued to have heaviness and weakness in bilateral legs and numbness in the feet. In addition hehas decrease in hand dexterity and dropping objects with the hand in addition numbness. ANTIPLATELET OR ANTICOAGULATION STATUS: No Patient Entered Questionnaires Spine Questions 12/29/2021 Pain Location: Lower back Pain Duration: 1 to 5 years Pain over last 6 months: Every day or nearly every day in the past 6 months Symptoms from neck/cervical spine: No Employment Status: Disabled due to back pain, permanently or temporarily Off work 1 month or more due to back/neck pain: Does not apply Applied for/receive disability/WC due to low back/neck pain Does not apply Involved in law suit/legal claim: No PROMIS Score Percentiles Physical Health 12/29/2021 Physical Function Percentile 0 Sleep Percentile 27* Fatigue Percentile 16* Pain Interference Percentile 2 PROMIS SOCIAL ROLE SCORE 12/29/2021 Social Role Satisfaction Percentile 4 PROMIS Global Health Scale 12/29/2021 Physical Health Percentile 7 Mental Health Percentile 5 Percentiles provide an indication of how the patient's score ranks in relation to the general population. Higher percentile rankings indicate better function/quality of life. 50th percentile is the average of the general population and indicates half of respondents had a worse score. Depression Screening: PHQ-9 12/29/2021 Score 16 PHQ-9 Self-harm Question 12/29/2021 Thoughts that you would be better off , or of hurting yourself in some way 0 PHQ-9 Self-Harm (Item 9) response options: 0 Not at all 1 Several days 2 More than half the days 3 Nearly every day PHQ-9 Levels: 0-4 No to mild depression 5-9 Mild depression 10-14 Moderate depression 15-19 Moderately severe depression 20-27 Severe depression PHYSICAL EXAM: BP 142/91 (BP Site: Right Arm, BP Position: Sitting, BP Cuff Size: Regular Adult) Pulse 69 Resp16 Ht 180.3 cm (5' 11 ) Wt 101.6 kg (224 lb) SpO2 96% BMI 31.24 kg/m Oriented x3 PERRL FS Motor: UE D 5/5, B 5/5, T 5/5, G 5/5, HI 5/5 LE HF 5/5, KE 5/5, DF 5/5, PF 5/5, EHL 5/5 Incision C/D/I Antalgic gait Reflexes 2+ DATA REVIEW No additional images reviewed today ASSESSMENT/PLAN (M47.12) Cervical spondylosis with myelopathy (primary encounter diagnosis) (M48.02) Spinal stenosis of cervical region Symptoms and signs concerning for cervical myelopathy. Will obtain MRI cervical spine to evaluate for any stenosis. Meantime patient is continuing rehabilitation at home. Gabapentin ordered Follow up: Following above SIGNATURE: Brock Portillo MD PATIENT NAME: Miroslava Peralta DATE: August 10, 2022 TIME: 10:55 AM PAGER: documented in this encounterF[facility]09-12-2022 Miscellaneous Notes* Telephone Encounter - Marilee Ceballos Pss - 08/03/2022 2:20 PM EDT Pharmacy verified in Epic Patient has been identified by name and date of : Yes Patient aware RX will be sent to pharmacy. No need to notify patient. Patient phones for refill(s): Requested Prescriptions Pending Prescriptions Disp Refills traZODone (DESYREL) 150 mg tablet 90 tablet 1 Sig: Take 1 tablet by mouth daily at bedtime. lisinopril (ZESTRIL, PRINIVIL) 20 mg tablet 90 tablet 1 Sig: Take 1 tablet by mouth once daily. Date of last office visit : 06/09/2022 Date of next office visit : 09/10/2022 Last 2 Encounter Wt Readings: Date: Wt: 06/18/2022 101.2 kg (223 lb) 06/09/2022 99.3 kg (219 lb) Please advise. Marilee Ceballos Pss documented in this encounterFlower Hospital08-13-2022 Miscellaneous Notes* Telephone Encounter - Hazel Grubbs LPN - 07/04/2022 10:23 AM EDT Phoned patient went over results, notes from Duong GOEL with understanding. * Telephone Encounter - Hazel Grubbs LPN - 07/04/2022 10:21 AM EDT ----- Message from Marbella Zaidi PA-C sent at 07/03/2022 6:33 PM EDT ----- Phoned and left message to call for results: Mild volume loss typical of age. No gross abnormalities to suggest issues with his balance. Unfortunately this MRI would not give us a good view of his inner ear which may be some part of his issues with vertigo and balance. As we discussed that would need to be done by a specialist. He does have some thickening in the sinuses suggestive of allergy and a left- sided mucosal cyst also suggesting allergy, otherwise normal. Thanks, Duong Zaidi PA-C documented in this encounterFlower Hospital08-10-2022 History of Present illness Narrative* АНДРЕЙ Elliott) - 07/01/2022 11:20 AM EDT Radiology Service Progress Note DATE OF SERVICE: July 01, 2022 TIME: 12:15 PM PATIENT IDENTITY VERIFICATION COMPLETED USING TWO (2) STANDARD IDENTIFIERS: Name and Date of confirmed by patient verbally. FALL SCREENING: Has the patient had 2 falls in the last year or 1 fall with injury or currently using an Ambulatory Assistive Device (Walker, Cane, Wheelchair, Crutches, etc.)? No PATIENT GENDER DATA: Male PATIENT RELEVANT IMPLANT DATA REVIEWED: Yes ALLERGIES: Reviewed and unchanged CONTRAST ALLERGY: NO. EXAM: MRI - CONTRAST TYPE: GROUP II PERIPHERAL IV DATA: Ambulatory: A peripheral IV was started in the Right antecubital site with a Angio cath: 22 gauge. RADIOLOGY DEPARTMENT: MR; Exam(s) Completed: Head: Routine Brain SIGNATURE: RT Earl([place]) PATIENT NAME: Miroslava Peralta DATE: July 01, 2022 TIME: 12:15 PM documented in this encounterFlower Hospital07-28-2022 History of Present illness Narrative* Gracy Sears APRN.MYRA - 06/18/2022 11:30 AM EDT Images from the original note were not included. [facility] Follow-up Visit Follow-up note June 18, 2022 HPI: Mr. Peralta presents today for a follow-up visit. Per his previous visit on 03/19/22: D47.2, G63 Neuropathy associated with MGUS (HCC) (primary encounter diagnosis) B19.20, G63 Hepatitis C associated neuropathy (HCC) M48.062 Spinal stenosis of lumbar region with neurogenic claudication M25.561, M25.562, G89.29 Chronic pain of both knees M25.559 Hip pain R26.9 Abnormality of gait Comment: Patient previously presenting with numbness in all extremities in stocking glove pattern as well as hip and knee pain and balance concerns. Previous workup with dx of MGUS. Possible contributing factors for neuropathy include both MGUS as well as history of Hep C. EMG and MRI of lumbar spine completed. Finding of severe canal stenosis. Also had XR of bilateral hips and knees showing OA as well as L knee effusion. Note, he was seen by orthopedics and received injections. No further follow up since 09/11. He has since had appointment with neurosurgery and lumbar surgery is scheduled for tomorrow 03/20/22. He has currently stopped all medications including gabapentin and naproxen and notes significant pain while in office today. He was taking gabapentin 300mg five times per day rather than 600mg TID as prescribed. Discussed medication today and would recommend 300mg TID and may take additional 600mg QHS. However, will await lumbar surgery to determine if further improvement in pain and possible reduction in gabapentin dose. M54.2 Neck pain R20.0, R20.2 Numbness and tingling of both upper extremities Comment: Patient reporting bilateral upper extremity numbness and weakness. Numbness present in both hands, on left localized mostly to fifth digit. Reports intermittent cervical pains as well. Notable history of bilateral shoulder and elbow surgeries as well as peripheral neuropathy. Pinprick sensation decreased throughout BUE as noted above. Positive Tinel's over right wrist. Slight weakness noted to L wrist and with L hand grasp. No recent cervical imaging completed and therefore will obtainXR cervical spine. Pending results may proceed with PT or EMG/NCV BUE to evaluate for mononeuropathy verses radiculopathy. Since his previous visit he had lumbar surgery x2; L3-L5. Was about three months ago. Since that time he states nothing has changed. Was using a walker and has now switched to a cane. Was told it cantake up to a year before things further improve. He did have home PT after; has since completed PT.Still feels he has weakness to both legs. Has been going to the gym and working out. Still notes significant lumbar pain. He has fallen since his previous visit; once. Numbness is still the same. States he feels exhaustedall the time. States his knees are hurting. Not following with orthopedics. Neck pain hasn't been as bad. Numbness is still in his hands and feels dizzy at times. He is currently taking gabapentin 300mg; 600 in AM and 600mg in PM. Also resumed taking Naproxen. Occasional leg swelling and lightheadedness but states he is not sure this is related to the medication; intermittent. Has follow up appointment with Dr. Portillo coming up in July. States he has imaging from his PCP for tinnitus, vertigo (room is spinning around him). Feels like he is floating. Sometimes hard to walk. Does not fall towards one side verses the other. Happens every day. Some days worse than others. Worse when looking up and down. Not worse with rolling in bed. No dizziness when looking at a screen. Has not seen ENT. 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 SKIN BIOPSY HX Current Outpatient Medications on File Prior to Visit Medication Sig lisinopril (ZESTRIL, PRINIVIL) 20 mg tablet Take 1 tablet by mouth once daily. tamsulosin (FLOMAX) 0.4 mg Take 1 capsule by mouth daily at bedtime. docusate sodium (COLACE) 100 mg capsule Take 1 capsule by mouth twice daily. gabapentin (NEURONTIN) 300 mg capsule Take 2 capsules by mouth three times daily for 90 days. amLODIPine (NORVASC) 10 mg tablet Take 1 tablet by mouth once daily. traZODone (DESYREL) 150 mg tablet Take 1 tablet by mouth daily at bedtime. omega-3 fatty acids/vitamin e(FISH OIL 1,000 MG CAP) Take by mouth. No current facility-administered medications on file prior to visit. Social History Tobacco Use Smoking status: Former Smoker Packs/day: 2.00 Years: 23.00 Pack years: 46.00 Types: Cigarettes Quit date: 11/22/1992 Years since quittin.5 Smokeless tobacco: Never Used Vaping Use Vaping Use: Never used Substance Use Topics Alcohol use: Not Currently Comment: quit in 1991. Drug use: No Comment: Quit drugs in . ALLERGIES Allergen Reactions Cardizem [Diltiazem* Other: See Comments panic attack Diovan [Valsartan] GI Upset Caused nausea Hyzaar [Losartan-Hy* Other: See Comments Mood change Lopressor [Metoprol* Other: See Comments no energy, wiped pt out Review of Systems: Cardiopulmonary: denies + chest pain, palpitations Respiratory: denies shortness of breath GI/: denies recent nausea, vomiting, + diarrhea, constipation, incontinence Musculoskeletal: denies + weakness (BLE), muscle atrophy, + joint ache/pain Back/spine: denies + low back, + mid back, or + cervical pains Neuro: denies tremors, loss of feeling, dizziness, seizure, blackout, + paresthesia, facial paresthesia, facial weakness, difficulty in speech, slurring of words, dysarthria, dysphagia, + memory loss, headache, vision changes, loss of hearing Physical Exam: 06/18/22 1123 BP: 124/86 Pulse: 88 Resp: 18 Temp: 36.3 C (97.4 F) SpO2: 96% Weight: 101.2 kg (223 lb) Patient is alert and in no distress. Dress is appropriate. Mood is appropriate Breathing appears regular and unstressed Neurologic examination: Cognitively intact. No deficits. No formal MMSE performed. CN: Pupils equal and reactive to light, extraocular movements intact with no nystagmus, face is symmetric with no facial droop, hearing intact bilaterally, tongue is midline with no deviation, shoulder shrug is symmetric. Motor exam shows 5/5 strength symmetric through the upper and lower extremities in all groups tested with exception of weak left hand grasp and weak left wrist flexion and extension. Sensory intact to light touch in upper extremities . Vibratory sensation is decreased to bilateral lower extremities to level of the knee. Per previous appointment: Decreased pinprick sensation to bilateral upper extremities in all fingers and dorsal aspect of hands and forearm. Decreased greater to first digit bilaterally compared to fifth. Per previous appointment: pinprick sensation absent to both lower extremities to mid young then diminished to level of the knee bilaterally. Deep tendon reflexes are diminished symmetrically at the biceps, brachioradialis, triceps, patella,and achilles bilaterally. Coordination: No dysmetria on finger to nose. No tremors noted. No drift seen. Gait with normal stride and arm swing. + Tinel's over right wrist. Labs/studies: XR Cervical Spine 04/09/22: RESULT: AP, lateral and oblique views reveal multilevel moderate foraminal encroachment from osteophytosis from C3 to C7. Moderate disc space narrowing and anterior osteophytosis from C3 through C7. Straightening of the normal lordosis. No fracture or prevertebral swelling. Mild anterior positioning of C2 on C3. Partially visualized right shoulder prosthesis Previously Reviewed: EMG 07/18/21: 1. The residuals of an old/chronic intraspinal canal lesion (ie: motor radiculopathy)at the left L3-S1 roots or segments. These changes are most severe in degree at the S1 root level where there is moderate active motor axon loss change above and below the knee. At L5 these changes are moderate in degree and active change is only seen below the knee. At L3/4 these changes are modera te to severe in degree but without any evidence of active/ongoing motor fiber loss. Screening studies in the right lower limb show similar, but slightly less significant, active on chronic changes atL5/S1 and moderate chronic (no active) motor axon loss changes at L3/4 suggesting this is a bilateral process and/or related to significant central canal stenosis. 2. 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 Due to overlapping electrodiagnostic features with #1, precise severity is difficult todetermine electrodiagnostically. XR Hip Bilat 07/04/21: Postsurgical change. No complication. Osteoarthrosis of the left hip. XR Knee Bilat 07/04/21: Osteoarthrosis of the knees and left hip Left-sided knee joint effusion.. Postsurgical change of the right hip. No complication. MRI Lumbar Spine 07/21/21: 1. 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 2. Severe central canal stenosis with thecal sac/cauda equina impingement at L3-4 and L4-5. 3. Moderate left L3-4 and L4-5 and [id number] same level neural foraminal narrowing. 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 Previous workup with dx of MGUS. Possible contributing factors for neuropathy include both MGUS as well as history of Hep C. Severe canal stenosis noted on MRI of lumbar spine and pt has since had lumbar surgery. Also previously following with ortho for L knee infusion. At this time he reports completion of PT for lumbar symptoms and continues to use a cane at home. He still notes low back pain and is currently taking gabapentin 600mg in AM and 600mg in PM. Follow up scheduled in July with spine surgery. M54.2 Neck pain R20.0, R20.2 Numbness and tingling of both upper extremities R42 Dizziness M48.02 Cervical stenosis of spinal canal Comment: Patient previously reporting bilateral upper extremity numbness and weakness. Numbness present in both hands, on left localized mostly to fifth digit. Today he reports that cervical pains have improved, though numbness and tingling still present. Now experiencing dizziness as well (has been following with PCP for this concern and MRI brain has been ordered). Since time of previous appointment XR cervical spine completed noting moderate disc space narrowing from C3-C7. Concern that cervical findings may be contributing to UE sx and possibly dizziness as well. At this time will proceedwith PT to address above concerns. If no improvement in symptoms will further evaluate with MRI of cervical spine. Office Visit on 06/18/22 CONSULT TO PHYSICAL THERAPY Gracy Sears APRN.DIRECTOR OF TESTING I spent a total of 38 minutes on the date of the service which included preparing to see the patient, [id number] patient care, completing clinical documentation, obtaining and/or reviewing separately obtained history, performing a medically appropriate examination, counseling and educating the pat ient/family/caregiver, ordering medications, tests, or procedures and communicating results to the patient/family/caregiver. documented in this encounterF[facility]07-20-2022 Miscellaneous Notes* Telephone Encounter - Karis Larson Ma - 06/10/2022 6:01 PM EDT Patient left detailed message provider would like to do MRI of brain. Please call to schedule Karis Larson Ma documented in this encounterFlower Hospital07-08-2022 Miscellaneous Notes* Telephone Encounter - Yudy Nelson Ma - 05/29/2022 3:30 PM EDT Sent to [facility] on 05/22/22 * Telephone Encounter - Jayla Haywood [facility] - 05/29/2022 2:16 PM EDT Patient has been identified by name and date of : Yes Pending Prescriptions Disp Refills LISINOPRIL 20 MG TABLET 90 tablet 3 Sig: Take 1 tablet by mouth once daily. LOS: No RX INSTRUCTIONS: Patient aware RX will be sent to pharmacy. No need to notify patient. [facility] documented in this encounterFlower Hospital07-08-2022 Miscellaneous Notes* Telephone Encounter - Gina Jey - 05/29/2022 2:26 PM EDT Pending Prescriptions Disp Refills METHOCARBAMOL 750 MG TABLET 28 tablet 0 Sig: Take 1 tablet by mouth four times daily as needed. LOS: No documented in this encounterFlower Hospital07-01-2022 Miscellaneous Notes* Telephone Encounter - Lilia Maza - 05/22/2022 1:07 PM EDT Patient has been identified by name and date of : Yes Pending Prescriptions Disp Refills LISINOPRIL 20 MG TABLET 90 tablet 1 Sig: Take 1 tablet by mouth once daily. LOS: No RX INSTRUCTIONS: Patient aware RX will be sent to pharmacy. No need to notify patient. Lilia Maza documented in this encounterFlower Hospital06-21-2022 History of Present illness Narrative* Marbella Zaidi PA-C - 05/12/2022 11:40 AM EDT 71 year old male with c/o none Feeling dizzy which is a persistent issue over the last year and a half with periodic episodes in which he has ringing in his years associated with vertiginous symptoms. Coming from the waiting room, the MA was concerned that he might fall but he seemed to recover and then improve once he got into the exam room. States episodes usually last about 1 to 2 hours, but happen probably separate times in the last year. Status postlaminectomy 04/01/2022, has been seen for postop follow-up with stability. Patient is doing home exercises but identifies surgery really has taken down worse than anything else in his life. Feels that he may not recover sufficiently to go back to his usual exercise and weightlifting which is bothersome. Calves and ankle weak No energy HTN: Current meds: amlodipine 10mg daily Lisinopril 20mg daily Patient is compliant with meds Yes Monitors bp at home: No. If yes, readings: Denies side effects: No. Chest pain: No. Dyspnea: No. Edema: No. Palpitations: No. Syncope: No. Headache: No. Dizziness: Yes. Ongoing for last year.episodic, last a few hours, associated with ear Last 3 Encounter BP Readings: Date: BP: 05/07/2022 166/77 04/16/2022 117/73 04/01/2022 164/101 Last 2 Encounter Wt Readings: Date: Wt: 05/07/2022 100.9 kg (222 lb 8 oz) 04/16/2022 101.6 kg (224 lb) Ddd (degenerative disc disease), lumbar S/p laminectomy Neurogenic claudication (hcc) Numbness and tingling of foot 03/20/2022 L3-5 laminectomy Doing well post-op Using walker. Mgus (monoclonal gammopathy of unknown significance) Following with Dr. Jacome:stable with no m-pprotein. Continues with significant numbness and tingling in stocking attribution both lower extremities. Impaired fasting blood sugar Currently on no medications. Identifies he does urinate about 3-4 times a night, lately has been having some difficulty with unwanted dribbling. Also positive for hesitancy, urgency and intermittency. Component Latest Ref Rng & Units 02/23/2022 03/29/2022 05/05/2022 Protein, Total 6.3 - 8.0 g/dL 6.9 7.1 6.6 Albumin 3.9 - 4.9 g/dL 4.4 4.1 4.2 Calcium 8.5 - 10.2 mg/dL 9.4 9.2 9.2 Bilirubin, Total 0.2 - 1.3 mg/dL 0.4 0.3 0.3 Alkaline Phosphatase 38 - 113 U/L 65 56 60 AST 14 - 40 U/L 22 13 (L) 16 ALT 10 - 54 U/L 14 10 11 Glucose 74 - 99 mg/dL 101 (H) 130 (H) 120 (H) BUN 9 - 24 mg/dL 12 17 16 Creatinine 0.73 - 1.22 mg/dL 1.11 0.95 0.95 Sodium 136 - 144 mmol/L 134 (L) 136 134 (L) Potassium 3.7 - 5.1 mmol/L 3.9 4.8 3.9 Chloride 97 - 105 mmol/L 100 100 100 CO2 22 - 30 mmol/L 26 24 23 Anion Gap 9 - 18 mmol/L 8 (L) 12 11 eGFR >=60 mL/min/1.73m 71 85 85 Component Latest Ref Rng & Units 10/16/2019 05/05/2022 Hemoglobin A1C 4.3 - 5.6 % 5.3 5.5 Estimated Average Glucose mg/dL 105 111 Component Latest Ref Rng & Units 03/29/2022 05/05/2022 WBC 3.70 - 11.00 k/uL 8.51 7.09 RBC 4.20 - 6.00 m/uL 4.49 4.40 Hemoglobin 13.0 - 17.0 g/dL 14.2 14.2 Hematocrit 39.0 - 51.0 % 42.3 41.1 MCV 80.0 - 100.0 fL 94.2 93.4 MCH 26.0 - 34.0 pg 31.6 32.3 MCHC 30.5 - 36.0 g/dL 33.6 34.5 RDW-CV 11.5 - 15.0 % 12.0 12.5 Platelet Count 150 - 400 k/uL 258 221 MPV 9.0 - 12.7 fL 9.6 9.3 Neut% % 92.7 67.8 Abs Neut (ANC) 1.45 - 7.50 k/uL 7.88 (H) 4.81 Lymph% % 4.8 15.4 Abs Lymph 1.00 - 4.00 k/uL 0.41 (L) 1.09 Milam% % 2.1 12.7 Abs Milam <0.87 k/uL 0.18 0.90 (H) Eosin% % 0.0 2.7 Abs Eosin <0.46 k/uL <0.03 0.19 Baso% % 0.2 1.1 Abs Baso <0.11 k/uL <0.03 0.08 Immature Gran % % 0.2 0.3 IMMATURE GRANS (ABS) <0.10 k/uL <0.03 <0.03 NRBC /100 WBC 0.0 0.0 Absolute nRBC <0.01 k/uL <0.01 <0.01 DTYPE Auto Auto Protein, Total 6.3 - 8.0 g/dL 7.1 6.6 Albumin 3.9 - 4.9 g/dL 4.1 4.2 Calcium 8.5 - 10.2 mg/dL 9.2 9.2 Bilirubin, Total 0.2 - 1.3 mg/dL 0.3 0.3 Alkaline Phosphatase 38 - 113 U/L 56 60 AST 14 - 40 U/L 13 (L) 16 ALT 10 - 54 U/L 10 11 Glucose 74 - 99 mg/dL 130 (H) 120 (H) BUN 9 - 24 mg/dL 17 16 Creatinine 0.73 - 1.22 mg/dL 0.95 0.95 Sodium 136 - 144 mmol/L 136 134 (L) Potassium 3.7 - 5.1 mmol/L 4.8 3.9 Chloride 97 - 105 mmol/L 100 100 CO2 22 - 30 mmol/L 24 23 Anion Gap 9 - 18 mmol/L 12 11 eGFR >=60 mL/min/1.73m 85 85 Using oxycontin at night for sleep. 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 SKIN BIOPSY HX Social History Tobacco Use Smoking status: Former Smoker Packs/day: 2.00 Years: 23.00 Pack years: 46.00 Types: Cigarettes Quit date: 11/22/1992 Years since quittin.4 Smokeless tobacco: Never Used Vaping Use Vaping Use: Never used Substance Use Topics Alcohol use: Not Currently Comment: quit in 1991. Drug use: No Comment: Quit drugs in ~. ACTIVE PROBLEM LIST Hypertension Sleeping Difficulty S/P Hip Replacement S/P Shoulder Joint Replacement Chronic Hepatitis C Without Hepatic Coma (Hcc) Mgus (Monoclonal Gammopathy of Unknown Significance) Former Smoker Neurogenic Claudication (Hcc) Obesity, Class I, Bmi 30-34.9 S/P Laminectomy Post-Op Pain Current Outpatient Medications Medication Sig Dispense Refill methocarbamol (ROBAXIN) 750 mg tablet Take 1 tablet by mouth four times daily as needed. (Patient taking differently: Take 750 mg by mouth twice daily. ) 28 tablet 0 docusate sodium (COLACE) 100 mg capsule Take 1 capsule by mouth twice daily. 20 capsule 0 gabapentin (NEURONTIN) 300 mg capsule Take 2 capsules by mouth three times daily for 90 days. 540 capsule 0 amLODIPine (NORVASC) 10 mg tablet Take 1 tablet by mouth once daily. 90 tablet 1 traZODone (DESYREL) 150 mg tablet Take 1 tablet by mouth daily at bedtime. 90 tablet 1 lisinopril (ZESTRIL, PRINIVIL) 20 mg tablet Take 1 tablet by mouth once daily. 90 tablet 1 omega-3 fatty acids/vitamin e(FISH OIL 1,000 MG CAP) Take one(1) tablet daily by mouth (Patient nottaking: ) 0 No current facility-administered medications for this visit. HEPATITIS A(1 of 2 - Risk 2-dose series) Never done COVID-19 VACCINE(1) Never done BP CONTROLLED (<130/80) Never done DTAP,TDAP,TD(1 - Tdap) Never done SHINGRIX VACCINE(1 of 2) Never done ADVANCE DIRECTIVE DISCUSSION Never done EXAM: BP 122/74 Pulse 73 Resp 20 Wt 101.6 kg (224 lb) SpO2 97% BMI 31.01 kg/m Pleasant overweight adult male in no acute distress. Alert and oriented all spheres. Normal affect and cognition. Speech normal. No deficits to learning or comprehension. Skin warm, dry, pink to lips and nailbeds. Normal turgor. Respirations regular and unlabored. Patient is using walker. HEENT: NCAT. No scleral icterus or conjunctival injection. Mild cerumen up against the left eardrum. Otherwise both TMs are mejia and your canals are clear. Wax was removed with warm tap water irrigation per MA with clearing. Nose and oropharynx free from injection or lesion. Oral membranes moist and pink. No cervical lymph nodes. Thyroid non-tender, no masses, or enlargement. Carotids pulses 2+/4+ without bruits. Chest is normal in size and shape, no dullness to percussion. Patient does have small soft nodule at the second intercostal space just below the clavicular band which is movable but attached. Suspectlipoma. Cardiac exam regular rate and rhythm with no murmurs or gallops. Chest clear to auscultation percussion. Abdomen: active bowel sounds throughout, soft, nontender, no masses or organomegaly. No CVAT. Laminectomy incision looks well-healed Extrem: no clubbing or cyanosis. Edema: 1/4+ bilateral distal calves and ankles. No pain in the calves.. Extremities are warm and pink with prompt capillary refill. ASSESSMENT/PLAN: 1. Essential hypertension - ICD9: 401.9, ICD10: I10 (primary diagnosis) - good control - Continue current medication(s) - Recommended regular aerobic exercise. - Recommend home blood pressure monitoring, to bring results in on next visit - Goal of BP <130/80 2. DDD (degenerative disc disease), lumbar - ICD9: 722.52, ICD10: M51.36 3. S/P laminectomy - ICD9: V45.89, ICD10: Z98.890 improving slowly postoperatively, identifies pain is significantly improved but continues to be weak. Is doing exercises as instructed daily. 4. Neurogenic claudication (HCC) - ICD9: 435.1, ICD10: G95.19 Uncertain at this point since patient is not doing the level of walking he was previously, will reevaluate over the next few months. 5. Numbness and tingling of foot - ICD9: 782.0, ICD10: R20.0, R20.2 Follows with neurology and neurosurgery, multifactorial 6. MGUS (monoclonal gammopathy of unknown significance) - ICD9: 273.1, ICD10: D47.2 Currently stable with no evidence of M protein. 7. Impaired fasting blood sugar - ICD9: 790.21, ICD10: R73.01 Recheck labs 8. Vertigo - ICD9: 780.4, ICD10: R42 Discussed the possibility of M ni re's disease with hearing loss/ringing in vertiginous episodes. Encourage patient to push fluids and document episodes and symptoms. We will reevaluate in 3 months with recommendation for complete exam to transfer care. If anything is worsening and meantime patient is to notify, consider ENT referral. Marbella Zaidi PA-C C documented in this encounterFlower Hospital06-16-2022 History of Present illness Narrative* Sanjay Bhat, - 05/07/2022 4:04 PM EDT Oncologic problem(s): 1) IgM MGUS. HPI: The patient is a 71-year-old male who has a past medical history significant for hepatitis C (treated with oral medication), shoulder replacement, hip replacement, chronic low back pain, remote alcoholism and hypertension. He described a several year history of pain in both legs associated with disequilibrium when walking. He did not have any focal motor weakness. A monofilament test suggested loss of sensation of someof the toes and portions of the soles of the feet. About 3 to 4 weeks prior to presentation here hewas doing curls when he heard a popping sound in his left elbow. Had numbness in the ulnar distribution from elbow to hand. He described having pain all over his body. Presents for ongoing oncologic management. Interim history: Had laminectomy L3-5 03/20/2022. Required evacuation lumbar wound hematoma and durotomy repair 04/01/2022. Feet still numb. Calves weak but somewhat better. Just completed physical therapy. Stable numbness in the ulnar distribution left arm. PMH, medications and allergies personally reviewed by me today. Any changes documented in appropriate section. ROS: Constitutional: Denies episodes of fever and night sweats. Not significantly fatigued. Normal appetite. Neuro: See above. HEENT: No recent change in voice, vision or hearing. Resp: Denies cough, wheeze and hemoptysis. Denies shortness of breath at rest. Denies WANG. CVS: Denies exertional chest pain, PND, orthopnea and LE edema. GI: Denies dysgeusia. Denies symptoms of stomatitis. Denies dysphagia and odynophagia. Denies reflux, n/v, change in bowel habits and abdominal pain. : Denies dysuria or gross hematuria. Endo: Denies hot flashes. Denies polyuria and polydipsia. Denies heat and cold intolerance. Musculoskeletal: See above. Derm: Denies rash. Denies jaundice and diffuse pruritis. Heme: Denies unusual bleeding and unexplained bruising. Psych: Normal mood. PHYSICAL EXAM: Vitals: Blood pressure 166/77, pulse 71, temperature 36.7 C (98.1 F), height 181 cm (5' 11.26 ), weight 100.9 kg (222 lb 8 oz), SpO2 96 %. Well-appearing and in no acute distress. EYES: Sclerae are anicteric bilaterally. LYMPHATIC: There is no palpable cervical, supraclavicular, axillary or inguinal adenopathy. RESPIRATORY: Inspiratory breath sounds are of normal intensity in all pal[place]. No rales, wheezes or rhonchi. CARDIOVASCULAR: Rhythm is regular. ABDOMEN: The abdomen is nondistended. No organomegaly. No tenderness. Extremities: No swelling or edema. SKIN: No jaundice or rash. No petechiae. 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 No focal motor weakness. DTRs are globally and symmetrically diminished. Romberg test negative. MUSCULOSKELETAL: No muscle wasting or tenderness. LABS: Component Latest Ref Rng & Units 05/05/2022 WBC 3.70 - 11.00 k/uL 7.09 RBC 4.20 - 6.00 m/uL 4.40 Hemoglobin 13.0 - 17.0 g/dL 14.2 Hematocrit 39.0 - 51.0 % 41.1 MCV 80.0 - 100.0 fL 93.4 MCH 26.0 - 34.0 pg 32.3 MCHC 30.5 - 36.0 g/dL 34.5 RDW-CV 11.5 - 15.0 % 12.5 Platelet Count 150 - 400 k/uL 221 MPV 9.0 - 12.7 fL 9.3 Neut% % 67.8 Abs Neut (ANC) 1.45 - 7.50 k/uL 4.81 Lymph% % 15.4 Abs Lymph 1.00 - 4.00 k/uL 1.09 Milam% % 12.7 Abs Milam <0.87 k/uL 0.90 (H) Eosin% % 2.7 Abs Eosin <0.46 k/uL 0.19 Baso% % 1.1 Abs Baso <0.11 k/uL 0.08 Immature Gran % % 0.3 IMMATURE GRANS (ABS) <0.10 k/uL <0.03 NRBC /100 WBC 0.0 Absolute nRBC <0.01 k/uL <0.01 DTYPE Auto Protein, Total 6.3 - 8.0 g/dL 6.6 Albumin 3.9 - 4.9 g/dL 4.2 Calcium 8.5 - 10.2 mg/dL 9.2 Bilirubin, Total 0.2 - 1.3 mg/dL 0.3 Alkaline Phosphatase 38 - 113 U/L 60 AST 14 - 40 U/L 16 ALT 10 - 54 U/L 11 Glucose 74 - 99 mg/dL 120 (H) BUN 9 - 24 mg/dL 16 Creatinine 0.73 - 1.22 mg/dL 0.95 Sodium 136 - 144 mmol/L 134 (L) Potassium 3.7 - 5.1 mmol/L 3.9 Chloride 97 - 105 mmol/L 100 CO2 22 - 30 mmol/L 23 Anion Gap 9 - 18 mmol/L 11 eGFR >=60 mL/min/1.73m 85 B2 Microglobulin <3.1 mg/L 2.0 Component Latest Ref Rng & Units 03/11/2021 11/04/2021 05/05/2022 Protein, Total 6.3 - 8.0 g/dL 7.0 7.0 Albumin 3.37 - 4.23 g/dL 3.93 3.84 4.07 Alpha 1 Globulin 0.18 - 0.31 g/dL 0.18 0.20 0.20 Alpha 2 Globulin 0.52 - 0.97 g/dL 0.62 0.68 0.63 Beta Globulin 0.84 - 1.36 g/dL 0.87 0.96 0.78 (L) Gamma Globulin 0.70 - 1.44 g/dL 1.41 1.32 1.01 Interpretation (Prot Electro) No definitive M protein is identified on protein electrophoresis. SEECOMMENT SEE COMMENT An M protein is identified on protein electrophoresis. (A) M-Protein Location Gamma fraction Gamma fraction Gamma Fraction 1 M-Protein Concentration <=0.00 g/dL 0.40 (H) 0.37 (H) 0.17 (H) SPE Staff Review Reviewed by Francheska Gao MD PhD ([id number]) Reviewed by Tye Meeks M.D., PhD ([id number]) Reviewed by To Meeks MD, Ph.D ([id number]) Interpretation Comment for Protein Electrophoresis See separate immunofixation report for characterization of monoclonal gammopathy. Component Latest Ref Rng & Units 05/05/2022 MPA Result No M protein is identified. M protein is present. (A) Interpretation ([facility]) Atypical restricted bands are present in the IgM and kappa regions. Consistentwith IgM kappa monoclonal gammopathy. Staff Review ([facility]) Reviewed by To Meeks MD, Ph.D ([id number]) Component Latest Ref Rng & Units 04/05/2021 Protein Conc, 24 Hr Ur 0 - 20 mg/dL 5 Protein, 24 Hr Ur (UEPG24) <0.16 gm/24 Hr 0.09 Albumin %, 24 Hr Urine % 35.9 Alpha 1 Globulin %, 24 Hr Ur % 6.5 Alpha 2 Globulin %, 24 Hr Ur % 13.9 Beta Globulin %, 24 Hr Ur % 25.2 Gamma Globulin %, 24 Hr Ur % 18.5 Interpretation ([facility]24) No definitive M protein is identified on protein electrophoresis. M Bruno Quant, 24 Hr Urine 0.00 gm/24 Hr 0.00 Staff Review ([facility]) Reviewed by Smitha Benoit MD ([id number]) Result ([facility]) No M protein is identified. A poorly defined region of restricted mobility is presentthat may represent an M (A) . . . Interpretation ([facility]) SEE COMMENT Staff Review ([facility]) Reviewed by Smitha Benoit MD ([id number]) Component Latest Ref Rng & Units 04/11/2021 MAG Ab IgM, GAETANO 0 - 999 TU 0 SGPG Antibody, IgM 0.00 - 0.99 IV 0.28 IMAGING: Pending. PATHOLOGY: Bone marrow biopsy 04/23/2021: BONE MARROW, ASPIRATE SMEAR AND CORE BIOPSY, WITH CLOT SECTION AND PERIPHERAL BLOOD (A-C): - BONE MARROW INVOLVEMENT BY PLASMA CELL NEOPLASM WITH 7% PLASMA CELLS. - NORMOCELLULAR BONE MARROW WITH TRILINEAGE HEMATOPOIESIS. - DECREASED STAINABLE IRON. - SEE COMMENT. Comment: The patient has a history of an IgM kappa monoclonal protein. The bone marrow shows increased plasma cells with 7% noted in the aspirate smear, and these show monotypic kappa light chains by flow cytometry. A clonal B-cell process is not identified. Final classification of plasma cell neoplasms requires correlation with additional clinical, laboratory, and/or radiographic findings. 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 Lymphoid infiltrate: Distinct lymphoid aggregates are not identified. Immunohistochemical stains demonstrate few scattered CD3 positive small lymphocytes and rare scattered CD20 positive small lymphocytes. A CD138 stain shows positive plasma cells that represent 5-10% of the total cellularity. Mize and lambda stains are difficult to interpret as each shows marked background staining, but at least focal areas appear to show an excess of kappa light chain staining. 46,XY[20] MYD88 L265P mutation NOT DETECTED ASSESSMENT/PLAN: (D47.2) IgM monoclonal gammopathy of uncertain significance (primary encounter diagnosis) (M79.10) Muscle pain Assessment: -The patient is a 71-year-old male with past medical history significant for hepatitis C (treated) and previous heavy alcohol use who had a several year history of disequilibrium and pain in both legs. He was found to have a low level monoclonal protein on a serum electrophoresis ordered when he was noted to have some sensory deficits on monofilament testing. No paresthesias per se. -Reviewed labs. Lower serum MP. Plan: -Recheck in a year. Portions of this documentation were copied and pasted from previous office visit notes in order to provide a cohesive continuity of the history. The note has been reviewed and edited and updated as necessary. During this patient visit I have spent approximately 10 minutes out of 20 in counseling regarding test results and coordinating care. Sanjay Bhat DO documented in this encounterFlower Hospital06-15-2022 Miscellaneous Notes* Telephone Encounter - Logan Aviles LPN - 05/06/2022 11:17 AM EDT Pt notified. He verbalized understanding. Logan Aviles LPN * Telephone Encounter - Logan Aviles LPN - 05/06/2022 11:00 AM EDT ----- Message from Navin Ackerman MD sent at 05/06/2022 8:31 AM EDT ----- Let him know his sugar was ok. Navin Ackerman MD documented in this encounterFlower Hospital05-26-2022 NoteHNO ID: [id number] Author: Mayra Gale PA-C Service: ? Author Type: Physician Telephone Switchboard Operator Type: Progress Notes Filed: 04/16/2022 12:27 PM Note Text: SPINE SURGERY FOLLOW UP SERVICE DATE: 04/16/2022 SURGERY DATE: 04/01/22 Miroslava Peralta is seen for 2 week post operative follow up from lumbar wound hematoma evacuation and durotomy repair. Original surgery on 03/20/22 was L3-5 laminectomy. Today, he is still having some gait issues and decreased sensation from bilateral knees to feet. He is walking with a walker. Doing the home exercises that PT has taught him. Sutures are still in place from hematoma evacuation. He is taking percocet and robaxin for pain. His legs still feel heavy like he is walking in water, similar to pre-op. PAIN EVALUATION 04/16/2022 1129 Pain Level: 2 Pain Location: Back-Lower Duration Units: Unknown Frequency: Intermittent Intervention/Comfort measure: Medication Patient Entered Questionnaires Spine Questions 12/29/2021 Pain Location: Lower back Pain Duration: 1 to 5 years Pain over last 6 months: Every day or nearly every day in the past 6 months Symptoms from neck/cervical spine: No Employment Status: Disabled due to back pain, permanently or temporarily Off work 1 month or more due to back/neck pain: Does not apply Applied for/receive disability/WC due to low back/neck pain Does not apply Involved in law suit/legal claim: No PROMIS Score Percentiles Physical Health 12/29/2021 Physical Function Percentile 0 Sleep Percentile 27* Fatigue Percentile 16* Pain Interference Percentile 2 PROMIS SOCIAL ROLE SCORE 12/29/2021 Social Role Satisfaction Percentile 4 PROMIS Global Health Scale 12/29/2021 Physical Health Percentile 7 Mental Health Percentile 5 Percentiles provide an indication of how the patient's score ranks in relation to the general population. Higher percentile rankings indicate better function/quality of life. 50th percentile is the average of the general population and indicates half of respondents had a worse score. Depression Screening: PHQ-9 12/29/2021 Score 16 PHQ-9 Self-harm Question 12/29/2021 Thoughts that you would be better off , or of hurting yourself in some way 0 PHQ-9 Self-Harm (Item 9) response options: 0 Not at all 1 Several days 2 More than half the days 3 Nearly every day PHQ-9 Levels: 0-4 No to mild depression 5-9 Mild depression 10-14 Moderate depression 15-19 Moderately severe depression 20-27 Severe depression PHYSICAL EXAM: BP 117/73 Pulse 89 Ht 188 cm (6' 2 ) Wt 101.6 kg (224 lb) BMI 28.76 kg/m? GENERAL APPEARANCE: Well nourished, well developed, and no apparent distress. NEURO PSYCH: Patient oriented to person, place, and time. Mood pleasant. Benign affect. MUSCULOSKELETAL VISUAL INSPECTION CERVICAL: WNL THORACIC: WNL LUMBAR: WNL MOTOR: 5/5 in all muscle groups. SENSORY: Normal sensory exam GAIT: Using walker Incision healing well DATA REVIEW No additional images reviewed today ASSESSMENT/PLAN (M48.062) Spinal stenosis, lumbar region with neurogenic claudication (primary encounter diagnosis) Miroslava Peralta will continue with medical management of his/her condition. 1. No Orders Entered Today 2. Follow up: 3 months I spent a total of 20 minutes on the date of the service which included preparing to see the patient, [id number] patient care, completing clinical documentation, obtaining and/or reviewing separately obtained history, performing a medically appropriate examination and counseling and educating the patient/family/caregiver. SIGNATURE: Mayra Gale PA-C PATIENT NAME: Miroslava Peralta DATE: April 16, 2022 TIME: 12:22 PM [facility]AG[phone] History of Present illness Narrative* Mayra Gale PA-C - 04/16/2022 11:43 AM EDT SPINE SURGERY FOLLOW UP SERVICE DATE: 04/16/2022 SURGERY DATE: 04/01/22 Miroslava Peralta is seen for 2 week post operative follow up from lumbar wound hematoma evacuation and durotomy repair. Original surgery on 03/20/22 was L3-5 laminectomy. Today, he is still having some gait issues and decreased sensation from bilateral knees to feet. Heis walking with a walker. Doing the home exercises that PT has taught him. Sutures are still in place from hematoma evacuation. He is taking percocet and robaxin for pain. His legs still feel heavy like he is walking in water, similar to pre-op. PAIN EVALUATION 04/16/2022 1129 Pain Level: 2 Pain Location: Back-Lower Duration Units: Unknown Frequency: Intermittent Intervention/Comfort measure: Medication Patient Entered Questionnaires Spine Questions 12/29/2021 Pain Location: Lower back Pain Duration: 1 to 5 years Pain over last 6 months: Every day or nearly every day in the past 6 months Symptoms from neck/cervical spine: No Employment Status: Disabled due to back pain, permanently or temporarily Off work 1 month or more due to back/neck pain: Does not apply Applied for/receive disability/WC due to low back/neck pain Does not apply Involved in law suit/legal claim: No PROMIS Score Percentiles Physical Health 12/29/2021 Physical Function Percentile 0 Sleep Percentile 27* Fatigue Percentile 16* Pain Interference Percentile 2 PROMIS SOCIAL ROLE SCORE 12/29/2021 Social Role Satisfaction Percentile 4 PROMIS Global Health Scale 12/29/2021 Physical Health Percentile 7 Mental Health Percentile 5 Percentiles provide an indication of how the patient's score ranks in relation to the general population. Higher percentile rankings indicate better function/quality of life. 50th percentile is the average of the general population and indicates half of respondents had a worse score. Depression Screening: PHQ-9 12/29/2021 Score 16 PHQ-9 Self-harm Question 12/29/2021 Thoughts that you would be better off , or of hurting yourself in some way 0 PHQ-9 Self-Harm (Item 9) response options: 0 Not at all 1 Several days 2 More than half the days 3 Nearly every day PHQ-9 Levels: 0-4 No to mild depression 5-9 Mild depression 10-14 Moderate depression 15-19 Moderately severe depression 20-27 Severe depression PHYSICAL EXAM: BP 117/73 Pulse 89 Ht 188 cm (6' 2 ) Wt 101.6 kg (224 lb) BMI 28.76 kg/m GENERAL APPEARANCE: Well nourished, well developed, and no apparent distress. NEURO PSYCH: Patient oriented to person, place, and time. Mood pleasant. Benign affect. MUSCULOSKELETAL VISUAL INSPECTION CERVICAL: WNL THORACIC: WNL LUMBAR: WNL MOTOR: 5/5 in all muscle groups. SENSORY: Normal sensory exam GAIT: Using walker Incision healing well DATA REVIEW No additional images reviewed today ASSESSMENT/PLAN (M48.062) Spinal stenosis, lumbar region with neurogenic claudication (primary encounter diagnosis) Miroslava Peralta will continue with medical management of his/her condition. 1. No Orders Entered Today 2. Follow up: 3 months I spent a total of 20 minutes on the date of the service which included preparing to see the patient, [id number] patient care, completing clinical documentation, obtaining and/or reviewing separately obtained history, performing a medically appropriate examination and counseling and educating the patient/family/caregiver. SIGNATURE: Mayra Gale PA-C PATIENT NAME: Miroslava Peralta DATE: April 16, 2022 TIME: 12:22 PM PAGER: documented in [facility] encounterF[facility]05-24-2022 Miscellaneous Notes* Telephone Encounter - Malika Reddy MA - 04/14/2022 2:25 PM EDT Beth notified. Malika Reddy MA * Telephone Encounter - Navin Ackerman MD - 04/14/2022 2:10 PM EDT Ok to do * Telephone Encounter - Rachel Akhtar RN - 04/14/2022 1:42 PM EDT Beth, CHINYERE calling from [facility] to report plan of care for patient and OT will visit patient 2 times a week for 3 weeks. Beth also requesting a verbal order nursing home social worker to come into home and help patient with community resources. Please review and Advise, Rachel Akhtar RN documented in this encounterFlower Hospital05-19-2022 History of Present illness Narrative* Shonda Yusuf, RT(R) - 04/09/2022 1:00 PM EDT Radiology Service Progress Note PATIENT NAME: Miroslava Peralta DATE OF SERVICE: April 09, 2022 TIME: 12:46 PM PATIENT IDENTITY VERIFICATION COMPLETED USING TWO (2) IDENTIFIERS: Name and Date of confirmedby patient verbally. FALL SCREENING: Has the patient had 2 falls in the last year or 1 fall with injury or currently using an Ambulatory Assistive Device (Walker, Cane, Wheelchair, Crutches, etc.)? Yes, Patient High Riskfor Falls What interventions were put in place to prevent falls during this visit? Offered Assistance with Transfers/Clothing and Instructed Patient to Remain Seated (Not on Exam Table) Until Exam PATIENT GENDER DATA: Male PATIENT RELEVANT IMPLANT DATA REVIEWED: Not Applicable RADIOLOGY DEPARTMENT: General X-ray: Exam(s) Completed: Spine X-Ray(s): Cervical AP / LAT / OBL PERIPHERAL IV DATA: Not applicable SIGNED BY: RT Cheryl(R) April 09, 2022 12:46 PM documented in this encounterFlower Hospital05-17-2022 Miscellaneous Notes* Telephone Encounter - Rachel Akhtar RN - 04/07/2022 1:22 PM EDT Micheal calling from [facility] to report plan of care for patient and [facility] willvisit patient 2 times a week for 4 weeks and 1 time a week for 2 weeks. [facility] will work with patient on monitoring wound from surgery. No call back needed if agreeable. Rachel Akhtar RN documented in this encounterFlower Hospital05-16-2022 History of Present illness Narrative* Yudy Jay RN - 04/06/2022 2:53 PM EDT TCM Home Visit Referral Source of Stratification: [facility] Hospital Admission Status: Discharged Readmission Risk Score: 11 PHILIPP Score: 2 Program referral criteria met: Does not meet referral criteria Patient does not qualify for High Risk TCM Home Visit program due to: Does not meet referral criteria Patient does not quality for High Risk TCM Home Visit Program due to: Does not meet referral criteria Preferred contact number: n/a Is patient staying somewhere other than the listed home address: No Dialysis Patient: No TRANSITIONAL CARE MANAGEMENT (TCM) COMMUNITY MONITORING PROGRAM Provider Action/FYI: Spoke with pt Denies: fever, chest pain, SOB, dizziness, nausea/vomiting,diarrhea Reports: feeling well Surgical site intact, dressing c/d Pain is controlled on Oxycodone Ambulates with a wheeled walker [facility] RN is visiting today Eating and drinking normally Good UOP/BM normal Advised to call Neurosurgery with new/worsening symptoms Yudy Jay RN SUMMARY: Pt discharged from [facility] on 04/04/22. Admitted for: Abscess I&D Contact made with patient: Yes Hi my name is Yudy Jay RN and I am calling [facility] on behalf of your PCP, Navin Ackerman MD I understand you were recently in the hospital so I am calling to check in with you to ensure you are feeling well now that you're home. May I ask you a few questions related to your hospital stay and well-being? Yes Contact with patient post discharge, spoke to patient. Patient identified by name and . Do you feel your health is BETTER, WORSE, or the SAME since leaving the hospital? Better ACTION TAKEN: Patient indicated symptoms are better or same, no action required. Continue outreach. MEDICATIONS: Many patients have questions or concerns about their medications once they are home. Do you have any questions about taking your medications or which medication you should be on? No Do you need any medication refills at this time, including any of the medications you might take only when needed? No ACTION TAKEN: No action required For RNs or Pharmacy completing outreach ONLY, was a medication review completed? Yes SOCIAL: We would like to make sure you have what you need so that your basics needs are met - including your personal safety, food, housing and medications. Would you like to speak with a social work steam table associate to help give you support for any of these needs? No It can be normal to feel anxious or down during a time like this. Would you like to talk to a mental health professional about how you have been feeling? No ACTION TAKEN: No action taken DISCHARGE INTRUCTIONS: Your discharge instructions / After Visit Summary (AVS) are important in guiding you through the recovery process. Do you have any questions related to your discharge instructions? No Do you have all the necessary equipment and supplies at home? Yes ACTION TAKEN: No action required I would like to help you schedule a hospital follow-up virtual or telephone visit with your PCP. This is a great way for you to connect with your provider to ensure you have safely transitioned home.If you are agreeable, I will send your request to a community organizer who will contact and assist you with that appointment. This will give you an opportunity to ask any questions or address any concerns youmay have with your PCP. Inform the patient that if they have any questions or concerns prior to that appointment, to call their PCP's office right away. ACTION TAKEN: No action required, patient already has an appointment scheduled. Your doctor would like us to remind you of the recommendations regarding the coronavirus (Covid19) outbreak: Avoid public places as much as possible. Avoid close contact (within 6 feet) with others you don t live with, especially if they are sick. Stay home if you are sick. Wash your hands regularly for at least 20 seconds with soap and water. Wear a cloth mask in public places to help reduce community spread. Do not go to your Doctor s office unless instructed to do so. For any non- emergency symptoms, call your Doctor s office to get instructions on how to manage (we might recommend a telephone or virtualvisit). For emergency symptoms, proceed to Emergency Department as usual but inform them of cough and fever symptoms NICOLASA if present (or call on the way if possible). documented in this encounterFlower Hospital05-16-2022 Miscellaneous Notes* Telephone Encounter - Aracelis Wolff RN - 04/06/2022 1:17 PM EDT Will forward refill request for review/filing. * Telephone Encounter - Doreen Casas - 04/06/2022 11:37 AM EDT Call from patient requesting refill. Pending Prescriptions Disp Refills METHOCARBAMOL 750 MG TABLET 28 tablet 0 Sig: Take 1 tablet by mouth four times daily as needed. LOS: No Patient last seen today Doreen Casas documented in this encounterFlower Hospital05-16-2022 Miscellaneous Notes* Telephone Encounter - Yudy Rosa MA - 04/06/2022 10:44 AM EDT At appointment time, 10 am, pt was not checked in. Went to lobby/waiting room and hallway to check for pt. Pt was not in either location . documented in this encounterFlower Hospital05-13-2022 NoteHNO ID: [id number] Author: Steve Jo PA-C Service: Neurosurgery Author Type: Physician Telephone Switchboard Operator Type: Progress Notes Filed: 04/03/2022 3:44 PM Note Text: NEUROSURGERY POST OP PROGRESS NOTE SERVICE DATE: 04/03/2022 SERVICE TIME: 3:43 PM POST OP DAY: # 2 SUBJECTIVE The patient reports pain is well controlled. No BAUM or dizziness. OBJECTIVE General: AANDOx 3, NAD, FRITZ well. Incision: dressing CDI. Drain: removed. Hancock: no hancock. Most recent labs and imaging results.. Current Facility-Administered Medications Medication Dose Route Frequency - NaCl 0.9% iv flush bag 20 mL INTRAVENOUS PRN - sodium chloride 0.9 % (flush) 3-5 mL (BD POSIFLUSH) 3-5 mL INTRAVENOUS q 12 H - ondansetron 4 mg tab(s) (ZOFRAN) 4 mg ORAL q 6 H PRN Or - ondansetron (PF) 4 mg injection (ZOFRAN) 4 mg INTRAVENOUS q 6 H PRN - melatonin 1 mg tab(s) 1 mg ORAL DAILY (8 PM) - morphine 4 mg injection 4 mg INTRAVENOUS q 2 H PRN - acetaminophen 1,000 mg tab(s) (TYLENOL) 1,000 mg ORAL q 8 H - senna-docusate 8.6-50 mg 1 tablet (SENNA-S) 1 tablet ORAL BID - gabapentin 600 mg cap(s) (NEURONTIN) 600 mg ORAL TID - methocarbamol 750 mg tab(s) (ROBAXIN) 750 mg ORAL QID PRN - lidocaine 4 % 1 Patch (SALONPAS) 1 Patch TRANSDERMAL DAILY And - lidocaine patch - REMOVE OTHER AT BEDTIME And - lidocaine - VERIFY PATCH OTHER q 8 H - amLODIPine 10 mg tab(s) (NORVASC) 10 mg ORAL DAILY AT 9 PM - lisinopril 20 mg tab(s) (ZESTRIL, PRINIVIL) 20 mg ORAL DAILY AT 9 PM - cephALEXin 500 mg cap(s) (KEFLEX) 500 mg ORAL q 6 H - traZODone 200 mg tab(s) (DESYREL) 200 mg ORAL AT BEDTIME - oxyCODONE IR 5-10 mg tab(s) (ROXICODONE) 5-10 mg ORAL q 4 H PRN - polyethylene glycol 3350 17 g packet (MIRALAX, GLYCOLAX) 17 g ORAL DAILY PRN ASSESSMENT AND PLAN Patient Active Hospital Problem List: Post-op pain (03/29/2022) Medication and Non-Pharmacologic VTE Prophylaxis/Anticoagulants VTE Prophylaxis: VTE prophylaxis appropriate Miroslava Peralta is a 71 year old status post reexploration of lumbar wound. Recommend increasing activity, physical therapy , occupational therapy and discharge planning. Anticipate discharge in 1 day. SIGNATURE: Steve Jo PA-C PATIENT NAME: Miroslava Peralta DATE: April 03, 2022 TIME: 3:43 PM ETX#[id number] Community [id number] NoteHNO ID: [id number] Author: Jessy Finley PA-C Service: Neurosurgery Author Type: Physician Telephone Switchboard Operator Type: Progress Notes Filed: 04/02/2022 11:26 AM Note Text: NEUROSURGERY POST OP PROGRESS NOTE SERVICE DATE: 04/02/2022 SERVICE TIME: 0900 POST OP DAY: # 1 SUBJECTIVE Mr. Peralta is doing well this morning. He reports incisional pain, somewhat controlled on current regimen. He denies pain, numbness, weakness, itngling to extremities. He denies BAUM. He state he is not able to get a lot of sleep at night. OBJECTIVE General: AANDOx 3, NAD, FRITZ well. Incision: dressing CDI. Drain: output is 0cc/24hhrs. Hancock: to gravity. Strength 5/5 Sensation intact Most recent labs and imaging results.. Current Facility-Administered Medications Medication Dose Route Frequency - NaCl 0.9% iv flush bag 20 mL INTRAVENOUS PRN - sodium chloride 0.9 % (flush) 3-5 mL (BD POSIFLUSH) 3-5 mL INTRAVENOUS q 12 H - ondansetron 4 mg tab(s) (ZOFRAN) 4 mg ORAL q 6 H PRN Or - ondansetron (PF) 4 mg injection (ZOFRAN) 4 mg INTRAVENOUS q 6 H PRN - melatonin 1 mg tab(s) 1 mg ORAL DAILY (8 PM) - morphine 4 mg injection 4 mg INTRAVENOUS q 2 H PRN - acetaminophen 1,000 mg tab(s) (TYLENOL) 1,000 mg ORAL q 8 H - oxyCODONE IR 5 mg tab(s) (ROXICODONE) 5 mg ORAL q 4 H PRN - senna-docusate 8.6-50 mg 1 tablet (SENNA-S) 1 tablet ORAL BID - gabapentin 600 mg cap(s) (NEURONTIN) 600 mg ORAL TID - methocarbamol 750 mg tab(s) (ROBAXIN) 750 mg ORAL QID PRN - [MAR Hold due to Transfer] dexAMETHasone sodium phosphate 4 mg injection (DECADRON) 4 mg INTRAVENOUS q 6 H - lidocaine 4 % 1 Patch (SALONPAS) 1 Patch TRANSDERMAL DAILY And - lidocaine patch - REMOVE OTHER AT BEDTIME And - lidocaine - VERIFY PATCH OTHER q 8 H - amLODIPine 10 mg tab(s) (NORVASC) 10 mg ORAL DAILY AT 9 PM - lisinopril 20 mg tab(s) (ZESTRIL, PRINIVIL) 20 mg ORAL DAILY AT 9 PM - cephALEXin 500 mg cap(s) (KEFLEX) 500 mg ORAL q 6 H - traZODone 150 mg tab(s) (DESYREL) 150 mg ORAL AT BEDTIME ASSESSMENT AND PLAN Patient Active Hospital Problem List: Post-op pain (03/29/2022) Medication and Non-Pharmacologic VTE Prophylaxis/Anticoagulants VTE Prophylaxis: VTE prophylaxis appropriate Miroslava Peralta is a 71 year old status post Lumbar wound hematoma evacuation and durotomy repair . Recommend pain control. - HOB < 30 for 48 hrs - Pain control per MAR - Continue drain - Will increase trazodone for sleep - Will increase oxycodone to 5-10mg Q4 PRN, please go back down to 5mg when patient is up walkong as he reports unsteady gait at 10mg dose Please call with questions or changes SIGNATURE: Jessy Finely PA-C PATIENT NAME: Miroslava Wellertaw DATE: April 02, 2022 TIME: 9:16 AM ETX#[id number] Community [id number] NoteHNO ID: [id number] Author: Anna Desai APRN.HERD TESTER Service: Anesthesiology Author Type: Nurse Software Test Specialist Type: Anesthesia Procedure Notes Filed: 04/01/2022 5:40 PM Note Text: ANESTHESIOLOGY PROCEDURE NOTE PIV General Information Procedure Start Time/Medication Administration: 04/01/2022 5:20 PM Patient Location: OR Staffing HERD TESTER: Anna Desai APRN.HERD TESTER Performed by: AUREA Preparation Sterility Preparation: hand hygiene performed prior to procedure, surgical cap used, mask used, skin prep agent completely dried prior to procedure Site Prep: Chloraprep Procedure Details Indication: need for IV access Needle Size/Type: 18 gauge angiocath Orientation: Left Location: Wrist Imaging Guidance Used: No SIGNATURE: Anna Desai APRN.CRNA PATIENT NAME: Miroslava Monzonw DATE: April 01, 2022 TIME: 5:39 PM CSN: [id number] NoteHNO ID: [id number] Author: Anna Desai APRN.HERD TESTER Service: Anesthesiology Author Type: Nurse Software Test Specialist Type: Anesthesia Procedure Notes Filed: 04/01/2022 5:39 PM Note Text: ANESTHESIOLOGY PROCEDURE NOTE Airway General Information Procedure Start Time/Medication Administration: 04/01/2022 5:08 PM Patient location during procedure: OR Timeout Performed Pre-procedure: timeout performed Consent Obtained: Yes Patient identity confirmed: arm band, care steam table associate and patient Staffing Anesthesiologist: Larry Mc MD HERD TESTER: Anna Desai APRN.HERD TESTER Performed by: AUREA Indications and Patient Condition Preoxygenated: yes Patient position: sniffing Difficult Mask: No Indications for airway management: anesthesia anesthesia circuit Method: asleep Airway Accessory: oral airway (#4) Final Airway Details Final airway type: endotracheal airway Final Endotracheal Airway: ETT Cuffed: yes Successful intubation technique: direct laryngoscopy Endotracheal tube insertion site: oral Blade: Sarah Beth Blade size: #4 ETT size (mm): 8.0 Measured from: lips Measurement (cm): 23 Placement verified by: capnometry Cormack-Lehane Classification: grade I - full view of glottis Number of attempts at approach: 1 Airway trauma: atraumatic. Failed airway: no Unrecognized esophageal intubation: no Airway not difficult SIGNATURE: Anna Desai APRN.CRNA PATIENT NAME: Miroslava Peralta DATE: April 01, 2022 TIME: 5:38 PM CSN: [id number] Miscellaneous Notes* Telephone Encounter - Malika Reddy MA - 04/01/2022 3:11 PM EDT Giselle notified. * Telephone Encounter - Navin Ackerman MD - 04/01/2022 3:05 PM EDT ok * Telephone Encounter - Zita Palmer LPN - 04/01/2022 2:53 PM EDT Christina with [facility] calling and states [facility] days and asking if you will follow and sign for [facility], PT and OT. Pt had a right hip replacement and a laminectomy and started with back pain after procedure. Please advise Giselle back with verbal order. Christina will be off. [phone]. Zita Palmer LPN documented in this encounterFlower Hospital05-10-2022 NoteHNO ID: [id number] Author: Jessy Finley PA-C Service: Neurosurgery Author Type: Physician Telephone Switchboard Operator Type: Progress Notes Filed: 03/31/2022 3:50 PM Note Text: PROGRESS NOTE NEUROSURGERY SERVICE DATE: 03/31/2022 SERVICE TIME: 1200 Subjective INTERVAL HPI Patient reports pain to R buttocks overall improved. Still having copious amount of drainage from incision site. Dressing changed twice already this morning 7am and 10am due to saturation. Current Facility-Administered Medications Medication Dose Route Frequency - NaCl 0.9% iv flush bag 20 mL INTRAVENOUS PRN - sodium chloride 0.9 % (flush) 3-5 mL (BD POSIFLUSH) 3-5 mL INTRAVENOUS q 12 H - ondansetron 4 mg tab(s) (ZOFRAN) 4 mg ORAL q 6 H PRN Or - ondansetron (PF) 4 mg injection (ZOFRAN) 4 mg INTRAVENOUS q 6 H PRN - melatonin 1 mg tab(s) 1 mg ORAL DAILY (8 PM) - morphine 4 mg injection 4 mg INTRAVENOUS q 2 H PRN - acetaminophen 1,000 mg tab(s) (TYLENOL) 1,000 mg ORAL q 8 H - oxyCODONE IR 5 mg tab(s) (ROXICODONE) 5 mg ORAL q 4 H PRN - senna-docusate 8.6-50 mg 1 tablet (SENNA-S) 1 tablet ORAL BID - gabapentin 600 mg cap(s) (NEURONTIN) 600 mg ORAL TID - methocarbamol 750 mg tab(s) (ROBAXIN) 750 mg ORAL QID PRN - dexAMETHasone sodium phosphate 4 mg injection (DECADRON) 4 mg INTRAVENOUS q 6 H - lidocaine 4 % 1 Patch (SALONPAS) 1 Patch TRANSDERMAL DAILY And - lidocaine patch - REMOVE OTHER AT BEDTIME And - lidocaine - VERIFY PATCH OTHER q 8 H - amLODIPine 10 mg tab(s) (NORVASC) 10 mg ORAL DAILY AT 9 PM - lisinopril 20 mg tab(s) (ZESTRIL, PRINIVIL) 20 mg ORAL DAILY AT 9 PM - cephALEXin 500 mg cap(s) (KEFLEX) 500 mg ORAL q 6 H Objective Alert, Oriented to Person, Place, Time EOMI PERRL Face Symmetric Tongue Midline ABI No Drift Strength 5/5 Sensation intact Incision non TTP Dressing saturated, copious amount of bloody drainage at site Incision with mild active drainage Mild edema to superior aspect of incision No erythema surrounding incision VITAL SIGNS 24 HOUR REVIEW: Patient Vitals for the past 24 hrs: BP Temp Temp src Pulse Resp SpO2 03/31/22 1217 147/87 36.7 ?C (98.1 ?F) Oral 76 18 96 % 03/31/22 0745 164/95 37.3 ?C (99.1 ?F) Oral 68 18 95 % 03/31/22 0532 150/86 ? Oral 69 16 97 % 03/30/22 2349 142/88 36.6 ?C (97.9 ?F) Oral 70 18 96 % 03/30/22 1935 152/79 37 ?C (98.6 ?F) Oral 75 16 94 % 03/30/22 1531 143/85 36.9 ?C (98.4 ?F) Oral (!) 58 18 96 % LABS: CBC, Coags, BMP, Mg, Phos Recent Labs 03/29/22 1329 WBC 8.51 HB 14.2 HCT 42.3 PLT 258 NA 136 K 4.8 CHLOR 100 CO2 24 BUN 17 CREAT 0.95 GLUC 130* CA 9.2 DATA: Diagnostic tests reviewed for today's visit: Most recent labs and imaging results. Assessment/Plan Principal Problem: Post-op pain POA: Yes Assessment AND Plan: - Dressing changed - Tentative plan for add on OR tomorrow with Dr. Portillo for re-exploration of lumbar wound - NPO at midnight - Hold AM dose of heparin - Type and screen ordered - Trazodone 150mg Q HS added for sleep,home medication Medication and Non-Pharmacologic VTE Prophylaxis/Anticoagulants 03/29/22 1030 activity - mobilize patient (ri,oh) VTE Prophylaxis: VTE prophylaxis appropriate SIGNATURE: Jessy Finley PA-C PATIENT NAME: Miroslava Peralta DATE: March 31, 2022 TIME: 2:52 [facility]05-09-2022 NoteHNO ID: [id number] Author: Jessy Finley PA-C Service: Neurosurgery Author Type: Physician Telephone Switchboard Operator Type: Progress Notes Filed: 03/30/2022 11:47 AM Note Text: PROGRESS NOTE NEUROSURGERY SERVICE DATE: 03/30/2022 SERVICE TIME: 1100 Subjective INTERVAL HPI Mr. Peralta states his right sided buttocks pain has improved greatly with addition of steroids. He states this pain is similar to his symptoms pre-operatively. He states the pain might have improved initially after surgery but worsened since then. He reports that he has been changing his dressing every day at home. He reports drainage has been clear, not bloody. He Denies BAUM. Per RN patient requiring dressing changes x3 since arrival. Current Facility-Administered Medications Medication Dose Route Frequency - heparin 5,000 Units injection 5,000 Units SUBCUTANEOUS q 12 H - NaCl 0.9% iv flush bag 20 mL INTRAVENOUS PRN - sodium chloride 0.9 % (flush) 3-5 mL (BD POSIFLUSH) 3-5 mL INTRAVENOUS q 12 H - ondansetron 4 mg tab(s) (ZOFRAN) 4 mg ORAL q 6 H PRN Or - ondansetron (PF) 4 mg injection (ZOFRAN) 4 mg INTRAVENOUS q 6 H PRN - melatonin 1 mg tab(s) 1 mg ORAL DAILY (8 PM) - morphine 4 mg injection 4 mg INTRAVENOUS q 2 H PRN - acetaminophen 1,000 mg tab(s) (TYLENOL) 1,000 mg ORAL q 8 H - oxyCODONE IR 5 mg tab(s) (ROXICODONE) 5 mg ORAL q 4 H PRN - senna-docusate 8.6-50 mg 1 tablet (SENNA-S) 1 tablet ORAL BID - gabapentin 600 mg cap(s) (NEURONTIN) 600 mg ORAL TID - methocarbamol 750 mg tab(s) (ROBAXIN) 750 mg ORAL QID PRN - dexAMETHasone sodium phosphate 4 mg injection (DECADRON) 4 mg INTRAVENOUS q 6 H - lidocaine 4 % 1 Patch (SALONPAS) 1 Patch TRANSDERMAL DAILY And - lidocaine patch - REMOVE OTHER AT BEDTIME And - lidocaine - VERIFY PATCH OTHER q 8 H - amLODIPine 10 mg tab(s) (NORVASC) 10 mg ORAL DAILY AT 9 PM - lisinopril 20 mg tab(s) (ZESTRIL, PRINIVIL) 20 mg ORAL DAILY AT 9 PM Objective Alert, Oriented to Person, Place, Time EOMI PERRL Face Symmetric Tongue Midline ABI No Drift Strength 5/5 in LE Sensation intact Incision is non TTP Incision edges well approximated, copious amount of bloody drainage noted at incision site, edema/hematoma noted at superior aspect of incision. VITAL SIGNS 24 HOUR REVIEW: Patient Vitals for the past 24 hrs: BP Temp Temp src Pulse Resp SpO2 Height Weight 03/30/22 0811 141/79 37.3 ?C (99.1 ?F) Oral 78 18 97 % ? ? 03/30/22 0405 128/77 36.6 ?C (97.9 ?F) Oral 69 20 97 % ? ? 03/29/22 2355 120/67 36.7 ?C (98.1 ?F) ? 72 ? 96 % ? ? 03/29/22 2002 147/78 36.7 ?C (98.1 ?F) Oral 79 16 96 % ? ? 03/29/22 1600 149/82 37.1 ?C (98.8 ?F) Oral 79 18 94 % ? ? 03/29/22 1212 161/82 36.8 ?C (98.2 ?F) Oral 89 18 98 % 188 cm (6' 2 ) 102.1 kg (225 lb) LABS: CBC, Coags, BMP, Mg, Phos Recent Labs 03/29/22 1329 WBC 8.51 HB 14.2 HCT 42.3 PLT 258 NA 136 K 4.8 CHLOR 100 CO2 24 BUN 17 CREAT 0.95 GLUC 130* CA 9.2 DATA: Diagnostic tests reviewed for today's visit: Most recent labs and imaging results. Assessment/Plan Principal Problem: Post-op pain POA: Yes Assessment AND Plan: - Pain control per MAR - OT eval pending - PT recommend home PT - Dr. Portillo to evaluate later this afternoon - New dressing applied today - Keflex 500mg QID x 7 days started - Possible OR on Wednesday for re-exploration of wound Medication and Non-Pharmacologic VTE Prophylaxis/Anticoagulants Anticoagulant AND Antiplatelet Medications (From admission, onward) Start Dose Route Frequency Last Action Ordered Stop 03/29/22 1030 heparin 5,000 Units injection (Surgical Risk Categories) 5,000 Units SUBCUTANEOUS EVERY 12 HOURS Given, 03/30 83003/29/22 1026 -- 03/29/22 1030 activity - mobilize patient (ri,al) VTE Prophylaxis: VTE prophylaxis appropriate SIGNATURE: Jessy Finley PA-C PATIENT NAME: Miroslava Peralta DATE: March 30, 2022 TIME: 11:09 [facility]05-06-2022 Miscellaneous Notes* Telephone Encounter - Cecily Palafox Pss - 03/27/2022 12:05 PM EDT Patient has been identified by name and date of : Yes Pending Prescriptions Disp Refills OXYCODONE-ACETAMINOPHEN 5 MG-325 MG TABLET 28 tablet 0 Sig: Take 1 tablet by mouth every 6 hours as needed for pain for up to 7 days. DONAL Class: C-II LOS: No RX INSTRUCTIONS: Patient aware RX will be sent to pharmacy. No need to nofity patient. Controlled medication - must be call in. Cecily Palafox Pss [facility] Miscellaneous Notes* Telephone Encounter - Tiffany Garsia PA-C - 03/26/2022 12:59 PM EDT Pain in right buttocks, especially in AM. This has been ongoing for years, but recently worsened. He is taking NSAIDS which help. He takes about 5-6 percocet per day. Incision site is ok. Denies incisional pain. Discussed not taking 2 different NSAIDS in the same day. Recommend supplementing tylenol up to 3000mg total per day. He understands and agrees. Ordered hip xray to be completed prior to visit with PCP On 03/30. * Telephone Encounter - Krysta Rudd RN - 03/26/2022 12:23 PM EDT Spoke to Carey from [facility] She wanted us to be aware that pt is having a lot of pain in am & is using Meloxicam & Naprosyn with his oxy to get it under control * Telephone Encounter - Vanessa dOom - 03/26/2022 12:16 PM EDT Nurse from [facility] at [phone] ext [phone] wanted to speak to the nurse in regards to this patients condition, he is having pain. [facility] History of Present illness Narrative* Tabatha Chahal RN - 03/24/2022 10:03 AM EDT TRANSITIONAL CARE MANAGEMENT (TCM) COMMUNITY MONITORING PROGRAM Provider Action/FYI: Spoke with patient who is doing better. Pain well controlled. Pt denies questions or concerns regarding medications, self care, and discharge instructions. Pt has follow up appointments in place and is agreeable with recommended plan of care. Follow up PCP 03/30/22 Post op 04/06/22 SUMMARY: Pt discharged from [facility] on 03/22/22. Admitted for: elective surgery as below Operations During Hospitalization: L3-5 laminectomy Copied from Discharge Summary: Hospital Course: 71 year old male with past medical history of insomnia, obesity, MGUS, HTN, HCV, and lumbar stenosis with neurogenic claudication who presented for elective lumbar spine surgery. Thepatient underwent L3-5 laminectomy on 03/20/[address] Portillo. The patient had a small left lateral durotomy during surgery that was repaired primarily. He was placed on bedrest postoperatively and activity level was slowly advanced. He denied positional headache or dizziness. He reported preoperative symptoms of bilateral LE and UE numbness/tingling are the same since surgery. He reported balance has improved since surgery. The patient's pain was controlled with oral regimen. MARIA LUISA drain was removed on POD #2 without complications. The patient was able to tolerate regular diet, void independently, and pass flatus prior to discharge. PT/OT evaluated the patient and recommended home with no needs. The patient was educated on wound care, activity restrictions, and pain medication regimen for discharge. He is scheduled for follow up with Neurosurgery on 04/06/2022. Contact made with patient: Yes Hi my name is Tabatha Chahal RN and I am calling [facility] on behalf of your PCP,Navin Ackerman MD I understand you were recently in the hospital so I am calling to check in with you to ensure you are feeling well now that you're home. May I ask you a few questions related to your hospital stay and well-being? Yes Contact with patient post discharge, spoke to patient. Patient identified by name and . Do you feel your health is BETTER, WORSE, or the SAME since leaving the hospital? Better ACTION TAKEN: Patient indicated symptoms are better or same, no action required. Continue outreach. MEDICATIONS: Many patients have questions or concerns about their medications once they are home. Do you have any questions about taking your medications or which medication you should be on? No Do you need any medication refills at this time, including any of the medications you might take only when needed? No ACTION TAKEN: No action required For RNs or Pharmacy completing outreach ONLY, was a medication review completed? Yes SOCIAL: We would like to make sure you have what you need so that your basics needs are met - including your personal safety, food, housing and medications. Would you like to speak with a social work steam table associate to help give you support for any of these needs? No It can be normal to feel anxious or down during a time like this. Would you like to talk to a mental health professional about how you have been feeling? No ACTION TAKEN: No action taken DISCHARGE INTRUCTIONS: Your discharge instructions / After Visit Summary (AVS) are important in guiding you through the recovery process. Do you have any questions related to your discharge instructions? No Do you have all the necessary equipment and supplies at home? Yes ACTION TAKEN: No action required I would like to help you schedule a hospital follow-up virtual or telephone visit with your PCP. This is a great way for you to connect with your provider to ensure you have safely transitioned home.If you are agreeable, I will send your request to a community organizer who will contact and assist you with that appointment. This will give you an opportunity to ask any questions or address any concerns youmay have with your PCP. Inform the patient that if they have any questions or concerns prior to that appointment, to call their PCP's office right away. ACTION TAKEN: No action required, patient already has an appointment scheduled. Your doctor would like us to remind you of the recommendations regarding the coronavirus (Covid19) outbreak: Avoid public places as much as possible. Avoid close contact (within 6 feet) with others you don t live with, especially if they are sick. Stay home if you are sick. Wash your hands regularly for at least 20 seconds with soap and water. Wear a cloth mask in public places to help reduce community spread. Do not go to your Doctor s office unless instructed to do so. For any non- emergency symptoms, call your Doctor s office to get instructions on how to manage (we might recommend a telephone or virtualvisit). For emergency symptoms, proceed to Emergency Department as usual but inform them of cough and fever symptoms NICOLASA if present (or call on the way if possible). * Tabatha Chahal RN - 03/23/2022 1:44 PM EDT TCM Home Visit Referral Source of Stratification: TCM [facility] Admission Status: Discharged Readmission Risk Score: 8 PHILIPP Score: 1 Program referral criteria met: Does not meet referral criteria Patient does not qualify for High Risk TCM Home Visit program due to: Does not meet referral criteria Patient does not quality for High Risk TCM Home Visit Program due to: Does not meet referral criteria Preferred contact number: NA Is patient staying somewhere other than the listed home address: No Dialysis Patient: No TRANSITIONAL CARE MANAGEMENT (TCM) COMMUNITY MONITORING PROGRAM Provider Action/FYI: Initial outreach attempt to patient following hospital discharge. No answer, left voice message with call back number [phone]. Will attempt another patient outreach tomorrow. Transitions of Care Critical Issues: SPECIALIST FOLLOW-UP: Follow up with Neurosurgery on 04/06/2022 SUMMARY: Pt discharged from [facility] on 03/22/22. Admitted for: elective surgery as below Operations During Hospitalization: L3-5 laminectomy Copied from Discharge Summary: Hospital Course: 71 year old male with past medical history of insomnia, obesity, MGUS, HTN, HCV, and lumbar stenosis with neurogenic claudication who presented for elective lumbar spine surgery. Thepatient underwent L3-5 laminectomy on 03/20/[address] Portillo. The patient had a small left lateral durotomy during surgery that was repaired primarily. He was placed on bedrest postoperatively and activity level was slowly advanced. He denied positional headache or dizziness. He reported preoperative symptoms of bilateral LE and UE numbness/tingling are the same since surgery. He reported balance has improved since surgery. The patient's pain was controlled with oral regimen. MARIA LUISA drain was removed on POD #2 without complications. The patient was able to tolerate regular diet, void independently, and pass flatus prior to discharge. PT/OT evaluated the patient and recommended home with no needs. The patient was educated on wound care, activity restrictions, and pain medication regimen for discharge. He is scheduled for follow up with Neurosurgery on 04/06/2022. Contact made with patient: No - next outreach attempt will be on next Outreach ended [facility] NoteHNO ID: [id number] Author: MARGARITA Lau Service: Care Management Author Type: Central Supply Tech Type: Care Mgt Progress Note Filed: 03/22/2022 11:14 AM Note Text: CARE MANAGEMENT DISCHARGE NOTE SERVICE DATE: 03/22/2022 SERVICE TIME: 11:08 AM LOS: 2 days Admission Date: 03/20/2022 DISCHARGE ARRANGEMENT (list agency and phone number) Discharge Arrangement: Home with Self Care CAREGIVER ASSESSMENT: Caregiver is ready, willing and able to meet the patient's needs as recommended by the inter-professional team:: No Caregiver needed Does the patient have an acute stroke diagnosis, or has the patient had a stroke during this admission?: No Patient's transition needs and plan for meeting these needs: Pt cleared for discharge. Pt scheduled to discharge home. HANDOFF COMMUNICATION: Handoff to: Primary Care Physician Primary Care Physician Name/Phone: David Ackerman [phone] TRANSPORTATION ARRANGEMENTS: Transportation Arrangements: Car ADDITIONAL CONTACT RESOURCES: Saima Peralta [phone] Pt cleared for discharge. Pt will discharge home with self care. Summary of Care sent to PCP. Pt received a copy of the AVS at discharge. Pt will follow up per discharge instructions. Pt received a script for a wheeled walker. There were no transportation needs at discharge. SIGNATURE: MARGARITA Lau PATIENT NAME: Miroslava Peralta DATE: March 22, 2022 TIME: 11:08 AM PAGER/CONTACT #: [phone] [id number] NoteHNO ID: [id number] Author: Jori Benitez MD Service: General Internal Medicine Author Type: Physician Type: Progress Notes Filed: 03/21/2022 11:08 AM Note Text: PROGRESS NOTE - INTERNAL MEDICINE PATIENT NAME: Miroslava Peralta SERVICE DATE: March 21, 2022 SERVICE TIME: 11:07 AM PCP: Navin Ackerman MD ADMITTING PHYSICIAN: Brock Portillo MD MD INTERVAL HISTORY OF PRESENT ILLNESS: Pt seen felt ok . No cp/ sob no weakness REVIEW OF SYSTEMS: GENERAL: No weight loss, malaise or fevers RESPIRATORY: Negative for cough, hemoptysis, wheezing, COPD, dyspnea or shortness of breath CARDIOVASCULAR: Negative for chest pain, leg swelling, hypertension, CHF or palpitations GI: No nausea, vomiting, or diarrhea : No history of dysuria, frequency or incontinence PSYCH: Negative for sleep disturbance, mood disorder and recent psychosocial stressors. ENDOCRINE: Negative for cold or heat intolerance, polyuria, polydipsia and goiter All other reviewed and negative other than HPI. PRIOR TO ADMISSION MEDICATIONS: gabapentin (NEURONTIN) 300 mg capsule, Take 2 capsules by mouth three times daily for 90 days., Disp: 540 capsule, Rfl: 0, 03/19/2022 at 1999 amLODIPine (NORVASC) 10 mg tablet, Take 1 tablet by mouth once daily. (Patient not taking: Reported on 03/19/2022 ), Disp: 90 tablet, Rfl: 1, 03/15/2022 naproxen (NAPROSYN) 500 mg tablet, TAKE 1 TABLET TWICE DAILY NEEDED for pain and inflammation with food (Patient not taking: Reported on 03/19/2022 ), Disp: 180 tablet, Rfl: 1, 03/16/2022 traZODone (DESYREL) 150 mg tablet, Take 1 tablet by mouth daily at bedtime. (Patient not taking: Reported on 03/19/2022 ), Disp: 90 tablet, Rfl: 1, 03/16/2022 lisinopril (ZESTRIL, PRINIVIL) 20 mg tablet, Take 1 tablet by mouth once daily. (Patient not taking: Reported on 03/19/2022 ), Disp: 90 tablet, Rfl: 1, 03/16/2022 multivit,thx,calcium,iron,mins (MULTIVITAMIN AND MINERAL ORAL), Take by mouth. (Patient not taking: Reported on 03/19/2022 ), Disp: , Rfl: , 03/16/2022 omega-3 fatty acids/vitamin e(FISH OIL 1,000 MG CAP), Take one(1) tablet daily by mouth (Patient not taking: ), Disp: , Rfl: 0, 03/16/2022 INs AND OUT SUMMARY: Intake/Output Summary (Last 24 hours) at 03/21/2022 1107 Last data filed at 03/21/2022 0700 Gross per 24 hour Intake 583 ml Output 4480 ml Net -3897 ml PHYSICAL EXAM: Patient Vitals for the past 24 hrs: BP Temp Temp src Pulse Resp SpO2 Height Weight 03/21/22 0742 151/91 36.6 ?C (97.9 ?F) Oral 77 16 96 % ? ? 03/21/22 0436 146/78 36.5 ?C (97.7 ?F) ? 79 ? 95 % ? ? 03/20/22 2340 125/74 37 ?C (98.6 ?F) ? 91 ? 91 % ? ? 03/20/22 2107 135/75 36.4 ?C (97.5 ?F) Oral 90 17 95 % ? ? 03/20/22 1616 126/81 36.6 ?C (97.9 ?F) Oral 94 17 95 % ? ? 03/20/22 1231 ? 180.3 cm (5' 11 ) 102.1 kg (225 lb) 03/20/22 1217 127/65 36.5 ?C (97.7 ?F) Oral 84 16 95 % ? ? 03/20/22 1200 128/71 36.7 ?C (98.1 ?F) Temporal Art 88 18 96 % ? ? 03/20/22 1145 132/71 ? ? 89 18 93 % ? ? 03/20/22 1136 ? ? ? 89 ? 92 % ? ? 03/20/22 1130 131/77 ? ? 86 20 95 % ? ? 03/20/22 1121 136/83 37.1 ?C (98.8 ?F) Temporal Art 88 20 97 % ? ? GENERAL: Alert, no distress, cooperative SKIN: Skin color, texture, turgor normal. No rashes or lesions. NECK: No jugulovenous distention, No carotid bruits, Carotid pulse normal contour, Supple LUNGS: Lungs clear to auscultation. Good diaphragmatic excursion. CARDIAC: Normal S1 and S2; no rubs, murmurs, or gallops ABDOMEN: Abdomen soft, non-tender. BS normal. No masses or organomegaly. EXTREMETIES: Extremities normal. No deformities, edema, clubbing or skin discoloration. NEURO: Alert, oriented X 3, Cranial nerves II-XII intact, Gait normal. Reflexes normal and symmetric. Sensation grossly intact. PULSES: 2+ radial, 2+ carotid DATA: CBC, Coags, BMP, Mg, Phos Recent Labs 03/21/22 0453 WBC 13.36* HB 14.2 HCT 42.1 PLT 220 NA 136 K 4.5 CHLOR 103 CO2 24 BUN 18 CREAT 0.95 GLUC 145* CA 9.1 CSF AND Dilantin Liver Function, Amylase, AND Lipase IMAGING Reviewed and discussed with the patient. IN-PATIENT MEDICATIONS: Current Facility-Administered Medications Medication Dose Route Frequency - gabapentin 600 mg cap(s) (NEURONTIN) 600 mg ORAL TID - lisinopril 20 mg tab(s) (ZESTRIL, PRINIVIL) 20 mg ORAL DAILY - amLODIPine 10 mg tab(s) (NORVASC) 10 mg ORAL DAILY - traZODone 150 mg tab(s) (DESYREL) 150 mg ORAL AT BEDTIME - NaCl 0.9% iv flush bag 20 mL INTRAVENOUS PRN - sodium chloride 0.9 % (flush) 3-5 mL (BD POSIFLUSH) 3-5 mL INTRAVENOUS q 12 H - oxyCODONE-acetaminophen 5-325 mg 1-2 tablet (PERCOCET) 1-2 tablet ORAL q 6 H PRN - morphine 2 mg injection 2 mg INTRAVENOUS q 3 H PRN - methocarbamol 750 mg tab(s) (ROBAXIN) 750 mg ORAL QID PRN PROBLEM LIST: ACTIVE PROBLEM LIST Hypertension Sleeping Difficulty Anxiety Impaired Fasting Blood Sugar S/P Hip Replacement Shoulder Pain, Right Primary Localized (more content not included)...[id number] Note HNO ID: [id number] Author: Michael Horner APRN.DIRECTOR OF TESTING Service: Neurosurgery Author Type: Nurse Practitioner Type: Progress Notes Filed: 03/21/2022 11:59 AM Note Text: NEUROSURGERY POST OP PROGRESS NOTE SERVICE DATE: 03/21/2022 SERVICE TIME: 1000 POST OP DAY: # 1 SUBJECTIVE Patient states that the preoperative symptoms of BLE numbness and tinling are improved. States BUE numbness/tinlging is baseline. Was seen sitting up in chair this morning without reports of headache, dizziness or lightheadedness. Denies dizziness when ambulating. Reports pain is tolerable with PO percocet. Reports voiding independently without issue. Reports passing flatus without BM as of yet. Updated on plan for continued progression of activity today and pain control and pt in agreement. He denies fever, chills, chest pain, shortness of breath, N/V/D or dysuria/hematuria. OBJECTIVE General: AANDOx 3. 5/5 strength BUE and BLE Incision: dressing CDI. Drain: output is 280cc/24hhrs. Hancock: no hancock. Most recent labs and imaging results.. Current Facility-Administered Medications Medication Dose Route Frequency - gabapentin 600 mg cap(s) (NEURONTIN) 600 mg ORAL TID - lisinopril 20 mg tab(s) (ZESTRIL, PRINIVIL) 20 mg ORAL DAILY - amLODIPine 10 mg tab(s) (NORVASC) 10 mg ORAL DAILY - traZODone 150 mg tab(s) (DESYREL) 150 mg ORAL AT BEDTIME - NaCl 0.9% iv flush bag 20 mL INTRAVENOUS PRN - sodium chloride 0.9 % (flush) 3-5 mL (BD POSIFLUSH) 3-5 mL INTRAVENOUS q 12 H - oxyCODONE-acetaminophen 5-325 mg 1-2 tablet (PERCOCET) 1-2 tablet ORAL q 6 H PRN - morphine 2 mg injection 2 mg INTRAVENOUS q 3 H PRN - methocarbamol 750 mg tab(s) (ROBAXIN) 750 mg ORAL QID PRN ASSESSMENT AND PLAN Patient Active Hospital Problem List: S/P laminectomy (03/20/2022) Hypertension (07/31/2010) Chronic hepatitis C without hepatic coma (HCC) (01/05/2019) MGUS (monoclonal gammopathy of unknown significance) (03/15/2021) Neurogenic claudication (HCC) (03/20/2022) Obesity, Class I, BMI 30-34.9 (03/20/2022) Medication and Non-Pharmacologic VTE Prophylaxis/Anticoagulants 03/21/22 0930 graduated compression stockings (ri,oh) 03/21/22 0930 activity - mobilize patient (ri,oh) 03/20/22 1245 vte pharmacologic prophylaxis contraindicated (ri,oh) 03/20/22 1245 pneumatic compression stockings (ri,oh) VTE Prophylaxis: continue bilateral TEDs and SCDs. SQ heparin to start POD 2 if remains inpatient Miroslava Peralta is a 71 year old status post L3-5 laminectomy completed 03/20/[address] Portillo . Recommend increasing activity, physical therapy , discharge planning and pain control. - on bedrest until 0700 this morning d/t small left lateral durotomy, now up in chair without headache, dizziness or further complaint -encouraged to progress activity with PT/OT -pain managed with prn robaxin and percocet, pt reports adequate control -tolerating PO intake without N/V/D or abdominal pain -passing flatus without BM as of yet, start bowel regimen of BID docusate and daily miralax. -voiding independently without complication -hemovac drain to remain today d/t high output -encourage IS -Dr. Tovar following for medical management Anticipate discharge in 1-2 days Case discussed with Dr. Portillo via phone SIGNATURE: Michael Horner APRN.CNP PATIENT NAME: Miroslava Peralta DATE: March 21, 2022 TIME: 10:42 AM ETX#[id number] NoteHNO ID: [id number] Author: Merary Francis MD Service: Anesthesiology Author Type: Anesthesiologist Type: Anesthesia Procedure Notes Filed: 03/20/2022 4:07 PM Note Text: ANESTHESIOLOGY PROCEDURE NOTE Airway General Information Procedure Start Time/Medication Administration: 03/20/2022 7:38 AM Patient location during procedure: OR Timeout Performed Pre-procedure: timeout performed Consent Obtained: Yes Patient identity confirmed: arm band and patient Staffing Anesthesiologist: Merary Francis MD CAA: BAM Garcia Performed by: CAA and anesthesiologist Indications and Patient Condition Preoxygenated: yes Manual In-Line Stabilization: No Difficult Mask: No Indications for airway management: anesthesia anesthesia circuit Method: asleep Cricoid Pressure: No Final Airway Details Final airway type: endotracheal airway Final Endotracheal Airway: ETT Cuffed: yes Successful intubation technique: direct laryngoscopy Endotracheal tube insertion site: oral Blade: Sarah Beth Blade size: #4 ETT size (mm): 7.5 Measured from: lips Measurement (cm): 23 Placement verified by: chest auscultation and capnometry Cormack-Lehane Classification: grade I - full view of glottis Number of attempts at approach: 1 Failed airway: no Airway not difficult SIGNATURE: BAM Garcia PATIENT NAME: Miroslava Peralta DATE: March 20, 2022 TIME: 7:56 AM CSN: [id number] NoteHNO ID: [id number] Author: Logan Lunsford RPh Service: Pharmacy Author Type: Pharmacist Type: Progress Notes Filed: 03/20/2022 7:12 AM Note Text: PHARMACY PROGRESS NOTE Patient Name: Miroslava Peralta Admission Date: 03/20/2022 Date of Consult: 03/20/2022 Time of Consult: 7:11 AM In accordance with the inpatient pharmacy consult agreement the following medication changes have been made: Cefazolin 3 g pre-op x 1 dose changed to cefazolin 2 g pre-op x 1 dose. Patient weight 103.4 kg. Pharmacy will continue to monitor patient for continued eligibility of these medication changes. Please call with any questions or concerns. SIGNATURE: Logan Lunsford RPh DATE/TIME: 03/20/2022 7:11 [facility]04-28-2022 History of Present illness Narrative* Gracy Sears APRN.DIRECTOR OF TESTING - 03/19/2022 1:45 PM EDT Images from the original note were not included. [facility] Follow-up Visit Follow-up note March 19, 2022 HPI: Mr. Peralta is a right handed male who presents today for a follow-up visit. Per his previous visit on 12/18/21: D47.2, G63 Neuropathy associated with MGUS (HCC) (primary encounter diagnosis) B19.20, G63 Hepatitis C associated neuropathy (HCC) M48.062 Spinal stenosis of lumbar region with neurogenic claudication M25.561, M25.562, G89.29 Chronic pain of both knees M25.559 Hip pain R26.9 Abnormality of gait Comment: Patient previously presenting with numbness in all extremities in stocking glove pattern as well as hip and knee pain and balance concerns. Previous workup with dx of MGUS. Possible contributing factors for neuropathy include both MGUS as well as history of Hep C. EMG/NCV showing sensorimotor polyneuropathy and L3-S1 radiculopathy with MRI lumbar spine showing severe central canal stenosis with impingement at L3-4 and L4-5. XR of bilateral hips and knees showing OA as well as L knee effusion. Continues to follow with spine med for lumbar injections. Consult also previously placed to neurosurgery, however, appointment not until 12/29/21. Has also had follow up with orthopedics regarding hip and knee. Previously started on gabapentin 300mg TID for neuropathic sx. Denies SE and reported some improvement of sx with medications. However, pt has since stopped taking medication as he ran out of his prescription. At this time will restart gabapentin at 300mg TID for two weeks. If no SEand symptoms persist, he will increase to 600mg TID. He is to continue following with spine medicine for injections and keep scheduled appointment with neurosurgery. Stopped all medications five days ago in preparation for his upcoming surgery. He will restart his gabapentin tomorrow as he was told he could continue the medication. States when he took naproxen everything tripled in pain. Gabapentin has been providing relief of symptoms. He was taking 600mg of gabapentin at bedtime and 300mg four other times during the day. Was taking gabapentin every three tofour hours. Surgery scheduled for tomorrow morning. Will be having spine shaved so that canal is open. Will be staying overnight until Wednesday morning. Per neurosurgery on 12/29/21: ASSESSMENT/PLAN (M48.062) Spinal stenosis of lumbar region with neurogenic claudication (R26.9) Abnormality of gait Patient with neurogenic claudication over many months Conservative management offering only mild relief Is debilitating preventing patient daily activities 1. L3-5 laminectomy 2. Follow up: for preoperative evaluation Feels like everything has been weaker. States his fingers were having difficulty picking up the creamer container yesterday. Has been having intermittent neck pain. Notes numbness and tingling to L fifth digit and throughout both hands. Reports shoulder pain bilaterally. Has had six operations on shoulders and elbows. Gabapentin would help upper back symptoms and symptoms in hands as well. This has gotten worse since stopping gabapentin and naproxen. Pain has been so severe that he has been forgetting things. Left stove on four times this week. Still working on weight lifting but has been lifting light weights. Reports vision changes and speech changes. Has been forgetting things more since the pain has returned. Denies loss of vision. Denies slurred speech. Has had one fall where he slipped on ice during the winter. 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 SKIN BIOPSY HX Current Outpatient Medications on File Prior to Visit Medication Sig amLODIPine (NORVASC) 10 mg tablet Take 1 tablet by mouth once daily. naproxen (NAPROSYN) 500 mg tablet TAKE 1 TABLET TWICE DAILY NEEDED for pain and inflammation with food traZODone (DESYREL) 150 mg tablet Take 1 tablet by mouth daily at bedtime. gabapentin (NEURONTIN) 300 mg capsule Take 2 capsules by mouth three times daily for 30 days. Take 1 capsule three times daily for two weeks then increase to 2 capsules three times daily. [START ON 03/15/2022] mupirocin (BACTROBAN) 2 % ointment Apply 1/2 ointment with a cotton swab in each nostril 2x daily for five days preop lisinopril (ZESTRIL, PRINIVIL) 20 mg tablet Take 1 tablet by mouth once daily. multivit,thx,calcium,iron,mins (MULTIVITAMIN AND MINERAL ORAL) Take by mouth. omega-3 fatty acids/vitamin e(FISH OIL 1,000 MG CAP) Take one(1) tablet daily by mouth No current facility-administered medications on file prior to visit. Social History Tobacco Use Smoking status: Former Smoker Packs/day: 2.00 Years: 23.00 Pack years: 46.00 Types: Cigarettes Quit date: 11/22/1992 Years since quittin.3 Smokeless tobacco: Never Used Vaping Use Vaping Use: Never used Substance Use Topics Alcohol use: Not Currently Comment: quit in 1991. Drug use: No Comment: Quit drugs in ~92. ALLERGIES Allergen Reactions Cardizem [Diltiazem* Other: See Comments panic attack Diovan [Valsartan] GI Upset Caused nausea Hyzaar [Losartan-Hy* Other: See Comments Mood change Lopressor [Metoprol* Other: See Comments no energy, wiped pt out Review of Systems: Cardiopulmonary: denies + chest pain, palpitations Respiratory: denies shortness of breath GI/: denies recent nausea, vomiting, + diarrhea, constipation, incontinence Musculoskeletal: denies + weakness (BLE), muscle atrophy, + joint ache/pain Back/spine: denies + low back, + mid back, or + cervical pains Neuro: denies tremors, loss of feeling, dizziness, seizure, blackout, + paresthesia, facial paresthesia, facial weakness, difficulty in speech, slurring of words, dysarthria, dysphagia, + memory loss, headache, vision changes, loss of hearing Physical Exam: 03/19/22 1348 BP: 126/68 Pulse: 99 Resp: 18 Temp: 37 C (98.6 F) SpO2: 96% Weight: 103.4 kg (228 lb) Patient is alert and in no distress. Dress is appropriate. Mood is appropriate Breathing appears regular and unstressed Neurologic examination: Cognitively intact. No deficits. No formal MMSE performed. CN: Pupils equal and reactive to light, extraocular movements intact with no nystagmus, face is symmetric with no facial droop, hearing intact bilaterally, symmetric evaluation of the soft palate, tongue is midline with no deviation, shoulder shrug is symmetric. Motor exam shows 5/5 strength symmetric through the upper and lower extremities in all groups tested with exception of weak left hand grasp and weak left wrist flexion and extension. Sensory intact to light touch in upper extremities . Vibratory sensation is decreased to bilateral lower extremities to level of the knee. Decreased pinprick sensation to bilateral upper extremities in all fingers and dorsal aspect of hands and forearm. Decreased greater to first digit bilaterally compared to fifth. Per previous appointment: pinprick sensation absent to both lower extremities to mid young then diminished to level of the knee bilaterally. Deep tendon reflexes are diminished symmetrically at the biceps, brachioradialis, triceps, patella,and achilles bilaterally. Coordination: No dysmetria on finger to nose. No tremors noted. No drift seen. Gait with normal stride and arm swing. Wearing brace to L knee. + Tinel's over right wrist. Labs/studies: Previously Reviewed: EMG 07/18/21: 1. The residuals of an old/chronic intraspinal canal lesion (ie: motor radiculopathy)at the left L3-S1 roots or segments. These changes are most severe in degree at the S1 root level where there is moderate active motor axon loss change above and below the knee. At L5 these changes are moderate in degree and active change is only seen below the knee. At L3/4 these changes are modera te to severe in degree but without any evidence of active/ongoing motor fiber loss. Screening studies in the right lower limb show similar, but slightly less significant, active on chronic changes atL5/S1 and moderate chronic (no active) motor axon loss changes at L3/4 suggesting this is a bilateral process and/or related to significant central canal stenosis. 2. 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 Due to overlapping electrodiagnostic features with #1, precise severity is difficult todetermine electrodiagnostically. XR Hip Bilat 07/04/21: Postsurgical change. No complication. Osteoarthrosis of the left hip. XR Knee Bilat 07/04/21: Osteoarthrosis of the knees and left hip Left-sided knee joint effusion.. Postsurgical change of the right hip. No complication. MRI Lumbar Spine 07/21/21: 1. 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 2. Severe central canal stenosis with thecal sac/cauda equina impingement at L3-4 and L4-5. 3. Moderate left L3-4 and L4-5 and [id number] same level neural foraminal narrowing. 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 Previous workup with dx of MGUS. Possible contributing factors for neuropathy include both MGUS as well as history of Hep C. EMG and MRI of lumbar spine completed. Finding of severe canal stenosis. Also had XR of bilateral hips and knees showing OA as well as L knee effusion. Note, he was seen by orthopedics and received injections. No further follow up since 09/11. He has since had appointment with neurosurgery and lumbar surgery is scheduled for tomorrow 03/20/22. He has currently stopped all medications including gabapentin and naproxen and notes significant pain while in office today. He was taking gabapentin 300mg five times per day rather than 600mg TID as prescribed. Discussed medication today and would recommend 300mg TID and may take additional 600mg QHS. However, will await lumbar surgery to determine if further improvement in pain and possible reduction in gabapentin dose. M54.2 Neck pain R20.0, R20.2 Numbness and tingling of both upper extremities Comment: Patient reporting bilateral upper extremity numbness and weakness. Numbness present in both hands, on left localized mostly to fifth digit. Reports intermittent cervical pains as well. Notable history of bilateral shoulder and elbow surgeries as well as peripheral neuropathy. Pinprick sensation decreased throughout BUE as noted above. Positive Tinel's over right wrist. Slight weakness noted to L wrist and with L hand grasp. No recent cervical imaging completed and therefore will obtainXR cervical spine. Pending results may proceed with PT or EMG/NCV BUE to evaluate for mononeuropathy verses radiculopathy. Office Visit on 03/19/22 XR CERV OTHER 4V AP/LAT/OBL Gracy Sears APRN.MYRA I spent a total of 30 minutes on the date of the service which included preparing to see the patient, [id number] patient care, completing clinical documentation, obtaining and/or reviewing separately obtained history, performing a medically appropriate examination, counseling and educating the pat ient/family/caregiver and ordering medications, tests, or procedures. PDMP website checked and validated. All prescriptions have been APPROPRIATELY filled. No suspiciousactivity was identified. March 19, 2022 Gracy Sears APRN.MYRA documented [facility]04-[facility]22 Miscellaneous Notes* Telephone Encounter - Marialuisa Mishra LPN - 03/02/2022 2:38 PM EDT Patient has been identified by name and date of : Yes Pending Prescriptions Disp Refills AMLODIPINE 10 MG TABLET 90 tablet 1 Sig: Take 1 tablet by mouth once daily. LOS: No NAPROXEN 500 MG TABLET 180 tablet 1 Sig: TAKE 1 TABLET TWICE DAILY NEEDED for pain and inflammation with food LOS: No TRAZODONE 150 MG TABLET 90 tablet 1 Sig: Take 1 tablet by mouth daily at bedtime. LOS: No RX INSTRUCTIONS: Has visit scheduled in March for check up. Marialuisa Mishra LPN documented in this encounterFlower [facility]04-07-2022 History of Present illness Narrative* Pamela Sparrow MA - 02/26/2022 11:10 AM EDT POPULATION HEALTH NAVIGATION OUTREACH Action/SEVERINO Spoke with patient and scheduled BP follow up on 03/30/22. Patient declined my chart and will discuss AD at his PAT testing appt before his surgery on 03/20/22. Pt identified by name and : YES, via phone Outreach Outcome/Action Spoke to patient or caregiver: Patient scheduled Reason for Outreach Care Gap or Scheduling/Wellness visits Payer: Payor: [employer] MEDICARE / Plan: [employer] / Product Type: HMO / Care Gap Reviewed:: Follow-up appointment Controlling Blood Pressure Reminder: Reminder note to check Health Maintenance for items below Health Maintenance items due: HEPATITIS A(1 of 2 - Risk 2-dose series) Never done COVID-19 VACCINE(1) Never done BP CONTROLLED (<130/80) Never done DTAP,TDAP,TD(1 - Tdap) Never done SHINGRIX VACCINE(1 of 2) Never done ADVANCE DIRECTIVE DISCUSSION Never done Message Sent to Practice: No Navigation Signature: Pamela Sparrow MA February 26, 2022 11:15 AM documented in this encounterFlower Hospital04-04-2022 Instructions* Patient Instructions* Sonia Watts APRN.DIRECTOR OF TESTING - 02/23/2022 10:03 AM EDT PATIENT PREOPERATIVE INSTRUCTIONS Steve Jo PA-C has scheduled you for your procedure at this surgery center: [facility]: [phone] --[address] [place] [address]. On your scheduled day of surgery, please report to Patient Registration, ground floor Please read below carefully for your personalized instructions. Dietary Restrictions: - No solid food after midnight. - You may have 12 ounces of clear liquids (water, clear juices such as apple juice or gatorade, carbonated beverages, clear tea, black coffee, jello) until 2 hours before scheduled arrival at facility. No red/purple coloring and no creamer/sugar Medications: Unless instructed differently below, stay on all of your medications until your surgery. Approved medications to take the morning of surgery with a sip of water: Amlodipine, Gabapentin If you take any medications for erectile dysfunction-Cialis (Tadalafil), Levitra, Staxyn (Vardenafil) Viagra (Sildenenafil please do not take these for 48 hours before surgery. If you start any new medications after today's visit, please contact the surgeon's office. Blood Thinning Medications: - Stop NSAIDS (Ibuprofen, Advil, Aleve, Motrin, Celebrex, Mobic, etc.) 7 days before surgery, as directed by your surgeon. - Stop Aspirin 7 days before surgery, as directed by your surgeon. - Stop Vitamin E, ALL multi-vitamins, herbals and dietary supplements 7 days before surgery. - You may take Tylenol (Acetaminophen) or any of your pain medications that do not contain aspirin or NSAIDS as needed. Important Reminders: - If you use CPAP/BIPAP, bring the machine with you to the surgery center. - If you are prescribed inhalers for breathing, continue using them. - Candy, mints, and tobacco products are NOT permitted the morning of surgery. - Hearing aids, dentures and glasses may be worn the morning of surgery. - NO jewelry, body piercings, makeup, hairpins or contacts are to be worn the day of surgery. If you develop symptoms such as a fever, cold, or flu, or have other changes to your health within TWO DAYS of scheduled surgery or the morning of surgery, please contact the surgery center above. Personal Belongings: -Please have photo ID and insurance cards. -If you do not have a copy of advance directives on file with us, please bring a copy with you on the day of surgery. - Leave ALL valuables and money at home or with family members. For Outpatient Procedures: - YOU MUST HAVE A RESPONSIBLE CLASSIFIER TENDER TAKE YOU HOME. A EXECUTIVE CHAIRMAN OF THE BOARD OR TETRYL SCREEN OPERATOR CANNOT BE MADE A RESPONSIBLE CLASSIFIER TENDER. - We recommend that a responsible person stays with you overnight to take care of you. - You cannot stay in a hotel alone after outpatient surgery. You will not be permitted to have yoursurgery, if you do not have someone to take care of you. Arrival Time for Surgery: - The Surgery Center or hospital where you are having surgery will call the afternoon before surgery (or Wednesday for Wednesday surgery) with a scheduled arrival time. - If you have not heard by 4 pm, please contact the surgery center above. Please be aware that emergency situations arise, which may delay or change your surgical time. If this happens, we will notify you as soon as possible and regret any inconvenience. If you already have an Advance Directive, please fax a copy to [phone] or email to for it to be added to your chart. If you do not have an Advance Directive, you can find the appropriate form and more information at [email or web address]. We recommend that youcomplete the Advance Directive form found on the website and bring it with you the day of your surgery. It can be witnessed and scanned into your chart that day. Sonia Watts APRN.CNP documented in this encounterFlower Hospital04-04-2022 History and physical note * Sonia Watts APRN.CNP - 02/23/2022 10:00 AM EDT Images from the original note were not included. HISTORY AND PHYSICAL EXAMINATION SERVICE DATE: 02/23/2022 SERVICE TIME: 10:00 AM PRIMARY CARE PHYSICIAN: Navin Ackerman MD REASON FOR VISIT: Miroslava Peralta is a 71 year old male who is scheduled for Procedure(s) with comments: LAMINECTOMY DECOMPRESSION FACETECTOMY AND FORAMINOTOMY (N/A) DECOMPRESSION LAMINECTOMY 1ST ADD'L LUMBAR SEGMENT (N/A) - L3-5 laminectomy at the request of Dr. Steve Jo for consultation. My final recommendation will be communicated back to the requesting physician by way of shared medical record or letter. Subjective The patient has the following: ACTIVE PROBLEM LIST Hypertension Sleeping Difficulty Anxiety Impaired Fasting Blood Sugar S/P Hip Replacement Shoulder Pain, Right Primary Localized Osteoarthrosis of Shoulder Region S/P Shoulder Joint Replacement Chronic Hepatitis C Without Hepatic Coma (Hcc) Chronic Bilateral Low Back Pain Without Sciatica Mgus (Monoclonal Gammopathy of Unknown Significance) Numbness and Tingling of Foot Former Smoker COVID-19 Immunization Status Overdue - COVID-19 VACCINE (1) Overdue - never done No completion, postpone, frequency change, or communication history exists for this topic. CHIEF COMPLAINT: Pre-op exam HPI: DV is a 71 yo seen for PAC due to scheduled above surgery because of spinal stenosis of lumbarregion. 12/29/2021 Dr. Portillo HISTORY OF PRESENT ILLNESS: Miroslava Peralta is a 71 year old male. CHIEF COMPLAINT: low back and bilateral leg pain PRECIPITATING EVENT: None DURATION OF SYMPTOMS: Greater Than 3 Months Complains of buttock pain > LE leg pain pain in L5 distribution. This has been progressing over the last few years. The pain is worse activity partially relieved with rest. It is overall debilitating for the patient daily activities and work. Conservative measures offering only mild relief. He denies any weakness bowel bladder incontinence. PAIN EVALUATION 12/29/2021 0937 Pain Level: 5 Pain Location: Back-Lower Description: Aching;Dull;Sharp Duration Amount of Time: - ongoing Frequency: Continuous Intervention/Comfort measure: Medication Comments: Injections Pain Radiation: down the right and left thigh, below the right and left knee and to the right and left foot/feet Aggravating Factors: Activity Alleviating Factors: Rest Pain Ratio: Pain in the back is greater than in the leg DERMATOMAL DISTRIBUTION: Right: L5 Left: L5 AMBULATORY STATUS: Impaired Community Distances ANTIPLATELET OR ANTICOAGULATION STATUS: No PREVIOUS CONSERVATIVE TREATMENTS: OTC NSAIDS for 3 Months or Greater (Ibuprofen) Muscle Relaxants Membrane Stabilizers Physical therapy 2020 Epidural injection on 12/09/2021 and 12/23/2021 PREVIOUS SPINAL SURGERY: ?None REVIEW OF SYSTEMS: General: No weight loss, malaise or fevers. Neurological: +insomnia, on rx . No history of TIA's, stroke, LOAN COLLECTOR tumor, impaired sensorium, hemiplegia, paraplegia or quadraplegia. No neurological symptoms or problems. Positive for: peripheral neuropathy (on rx). Respiratory: Former smoker 1-1.5ppd/20 years. No history of current cough or dyspnea, or pneumonia in the past 6 weeks. No history of respiratory/pulmonary symptoms or problems. Cardiovascular: Positive for: hypertension (on rx) Negative for: anticoagulation therapy, arrhythmia, atrial fibrillation, CAD, chest pain, CHF, congenital heart defect, DVT/PE, hyperlipidemia, recent NV, murmur/valvular heart disease, open heart surgery and valve surgery. GI: Positive for: hepatitis and liver disease (hep C and tx ) Negative for: abdominal pain, dysphagia, GERD, irritable bowel syndrome, inflammatory bowel disease, nausea, pancreatitis, vomiting and ETOH >2 drinks/day. : No history of dysuria, frequency or incontinence, stones or chronic kidney disease. No difficulty urinating, nocturia > 1 time per night or hematuria. Endocrine: No history of diabetes. Has not taken steroids within the past 30 days. No history of endocrinological symptoms or problems. Hematology: +MGUS, following hematology 11/06/2021 Monique Kim CNP ASSESSMENT/PLAN: 1. MGUS (monoclonal gammopathy of unknown significance) - ICD9: 273.1, ICD10: D47.[address] Bhat's previous note 05/07/21: Assessment: -In summary the patient is a 70-year-old male with past medical history significant for hepatitis C( treated) and previous heavy alcohol use who has a several year history of disequilibrium and painin both legs. He was found to have a low level monoclonal protein on a serum electrophoresis ordered when he was noted to have some sensory deficits on monofilament testing. No paresthesias per se. -Reviewed all the clinical data available thus far. Bone marrow biopsy did not suggest lymphoplasmacytic lymphoma. Therefore diagnosis is IgM monoclonal colopathy of undetermined significance. Does not appear that this is causing his symptoms of muscular pain and weakness. Most likely primary neurologic or rheumatologic problem. Plan: -CT chest, abdomen pelvis. If okay, reassess in 6 months. -Needs neurology evaluation and EMG/NCV. -Would also consider rheumatology evaluation. - No new concerning findings on exam. - Reviewed labs/CT's with pt. - Follow up as scheduled with spine surg./Neuro. - Needs follow up appt. with Dr. Young/Tori. - Follow up with Dr. Bhat in 6 months with CBC/CMP/MM labs. - Pt. aware to call office with any questions/concerns. The patient indicates understanding of these issues and agrees with the plan. All documentation from previous visit of 05/07/21-Dr. Bhat was copied and pasted, documentation hasbeen reviewed and edited as necessary for today's visit. Monique Kim APRN.DIRECTOR OF TESTING. No history of bleeding or clotting disorder. Patient is not taking anti-coagulation or platelet medications. No history of hematological symptoms or problems. Oncology: No history of CA metastasis, chemo within 30 days, or radiotherapy within 90 days. No history of oncological symptoms or problems. Psych: No history of psychiatric symptoms or problems. Musculoskeletal: SEE HPI Positive for: joint pain (OA). Skin: Negative for lesions, rash and itching. 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 SKIN BIOPSY HX FAMILY HISTORY Problem Relation Age of Onset Cancer Mother breast cancer Hypertension Mother None Father father in train accident at yuni age Hypertension Sister Social History Tobacco Use Smoking status: Former Smoker Packs/day: 2.00 Years: 23.00 Pack years: 46.00 Types: Cigarettes Quit date: 11/22/1992 Years since quittin.2 Smokeless tobacco: Never Used Vaping Use Vaping Use: Never used Substance Use Topics Alcohol use: Not Currently Comment: quit in 1991. Drug use: No Comment: Quit drugs in ~. Prior to Admission medications as of 02/23/22 0944 Medication Sig Last Dose Taking gabapentin (NEURONTIN) 300 mg capsule Take 2 capsules by mouth three times daily for 30 days. Take 1 capsule three times daily for two weeks then increase to 2 capsules three times daily. Taking Yes baclofen (LIORESAL) 10 mg tablet Take 1 tablet by mouth once daily as needed. Taking Yes mupirocin (BACTROBAN) 2 % ointment Apply 1/2 ointment with a cotton swab in each nostril 2x daily for five days preop Taking Yes lisinopril (ZESTRIL, PRINIVIL) 20 mg tablet Take 1 tablet by mouth once daily. Taking Yes naproxen (NAPROSYN) 500 mg tablet TAKE 1 TABLET TWICE DAILY NEEDED for pain and inflammation with food Taking Yes traZODone (DESYREL) 150 mg tablet Take 1 tablet by mouth daily at bedtime. Taking Yes multivit,thx,calcium,iron,mins (MULTIVITAMIN AND MINERAL ORAL) Take by mouth. Taking Yes omega-3 fatty acids/vitamin e(FISH OIL 1,000 MG CAP) Take one(1) tablet daily by mouth Taking Yes amLODIPine (NORVASC) 10 mg tablet Take 1 tablet by mouth once daily. No medication comments found. ALLERGIES Allergen Reactions Cardizem [Diltiazem* Other: See Comments panic attack Diovan [Valsartan] GI Upset Caused nausea Hyzaar [Losartan-Hy* Other: See Comments Mood change Lopressor [Metoprol* Other: See Comments no energy, wiped pt out Objective PHYSICAL EXAM: General: alert and oriented (x3), healthy appearance and obese. Pertinent negatives noted - not distressed. Skin: normal color, no rash or lesions. HEENT: EOM intact and pupils equal round. Pertinent negatives noted - no carotid bruit. Cardiovascular: regular rate and rhythm, normal S1 and S2, no rub, murmurs, or gallop. Respiratory: normal breath sounds, no wheezes or crackles. No chest wall deformity or tenderness. Abdomen: soft. Pertinent negatives noted - not tender. Extremities: no deformity, no edema or tenderness, no joint swelling or clubbing. Neurological: normal cognition and motor skills. Gait normal. No weakness or sensory deficit. PAIN ASSESSMENT: Pain Pain Level: 7 Pain Location: Back-Lower Description: Dull;Throbbing;Aching;Sharp;Tightness Duration Amount of Time: 1 Duration Units: Years Frequency: Intermittent Intervention/Comfort measure: Medication (Sauna) VITALS: BP 154/102[Takes Lisinopril[ Pulse 89 Temp (Src) 97.8 (Temporal) Resp 16 Ht 5' 11 (1.80m) Wt 226 lb (102.5kg) SpO2 100% BMI 31.53 kg/(m^2). Diagnostic tests reviewed for today's visit: Lab Value Units Date High Low HB 15.6 g/dL 11/04/2021 17.0 13.0 HCT 44.6 % 11/04/2021 51.0 39.0 WBC 5.76 k/uL 11/04/2021 11.00 3.70 PLT 206 k/uL 11/04/2021 400 150 NA 136 mmol/L 11/04/2021 144 136 K 4.1 mmol/L 11/04/2021 5.1 3.7 GLUC 98 mg/dL 11/04/2021 99 74 BUN 21 mg/dL 11/04/2021 24 9 CREAT 1.22 mg/dL 11/04/2021 1.22 0.73 PTSEC No results within date range. INR No results within date range. APTT No results within date range. ALT 15 U/L 11/04/2021 54 10 AST 19 U/L 11/04/2021 40 14 TBILI 0.4 mg/dL 11/04/2021 1.3 0.2 TSH 2.210 uU/mL 09/30/2021 4.200 0.270 Lab Value Units Date High Low HCGQT No results within date range. UHCG No results within date range. HCG, BODY* No results within date range. Lab Value Units Date High Low ABORHD No results within date range. ABSCREEN No results within date range. Hemoglobin A1C (%) Date Value 12/13/2020 5.3 08/12/2020 5.6 10/16/2019 5.3 01/28/2018 5.2 05/11/2017 5.4 No results found for this or any previous visit (from the past 8760 hour(s)). No results found for this or any previous visit (from the past 97928 hour(s)). Assessment Chronic hepatitis C without hepatic coma (HCC) Assessment: tx by Dr. Augustine, completed tx 05/2019 Albumin (g/dL) Date Value 11/04/2021 4.3 Bilirubin, Total (mg/dL) Date Value 11/04/2021 0.4 Bilirubin, Conjug (mg/dL) Date Value 09/30/2021 <0.2 Alkaline Phosphatase (U/L) Date Value 11/04/2021 53 AST (U/L) Date Value 11/04/2021 19 ALT (U/L) Date Value 11/04/2021 15 Protein, Total (g/dL) Date Value 11/04/2021 6.7 11/04/2021 7.0 Hypertension Assessment: controlled on rx Last 14 BP Last 14 Encounter BP Readings: Date: BP: 02/23/2022 154/102[Takes Lisinopril[ 12/29/2021 134/90 12/18/2021 122/78 12/11/2021 123/82 11/10/2021 146/80 11/06/2021 138/87 09/30/2021 158/93 09/11/2021 132/82 08/19/2021 112/77 07/04/2021 132/88 06/11/2021 126/82 05/07/2021 117/77 04/11/2021 154/73 04/01/2021 130/79 MGUS (monoclonal gammopathy of unknown significance) Assessment: bilateral hand, foot and ankle numbness, on rx Following Dr. Bhat, hematology S/P hip replacement Assessment: hx S/P shoulder joint replacement Assessment: hx Sleeping difficulty Assessment: rx as needed Former smoker Assessment: 1-1.5ppd/20 years, denies asthma or COPD METS: Climb a flight of stairs or walk up a hill (5.50 METs) DASI Score: 5.5; Patient denies any chest pain or undue shortness of breath with the above physicalactivity. Clinical Frailty Scale: 3. Well, with treated comorbid disease ASA Class: 3 ANESTHESIA FINDINGS: Intubation History: No history of difficult intubation Significant Anesthesia Considerations: none Airway History: No history of difficult airway [id number] Score: Age: 65-74 Sex: Male CHF history: No Hypertension history: Yes Stroke/TIA/thromboembolism history: No Vascular disease history: No Diabetes history: No Score: 2 I - PHYSICAL EVALUATION AIRWAY Tracheostomy tube not present Mallampati: III. TM distance: >3 FB. Neck ROM: full ROM without neurological symptoms. Mouth opening: adequate. Short neck: no. Thick neck: yes DENTAL Dental findings: teeth intact. Additional comments: Cap/side . II - ANESTHESIA PLAN ASA Score: 3 Anesthetic Plan: other Anesthetic plan additional comments: *PACC/TCI - anesthesia choice. Informed Consent Anesthetic risks, benefits, alternatives, personnel and consent discussed: yes. Patient / Responsible [employer] agrees to proceed: yes Patient / Surrogate agrees to blood products: Yes Prepared for Surgery: optimally prepared for surgery, pending (see comment). Labs, EKG and COVID CONSULTS: Patient does not require consults for optimization at this time The Following Tests/Procedures Have Been Initiated: Orders Placed This Encounter >CBC + AUTO DIFF Standing Status: Future Standing Expiration Date: 04/25/2022 >CMP Standing Status: Future Standing Expiration Date: 04/25/2022 Type and Screen, 30 day Standing Status: Future Standing Expiration Date: 04/25/2022 Order Specific Question: [facility] Surgery or Procedure: Answer: Muslim ECG COMPLETE Standing Status: Future Standing Expiration Date: 02/23/2023 Planned Anesthetic: other anesthesia choice Instructions Given to Patient: Instructions located in the after visit summary. Patient given verbal and written preop instructions and voices comprehension and compliance. SIGNATURE: Sonia Watts APRN.CNP PATIENT NAME: Miroslava Peralta DATE: February 23, 2022 TIME: 10:00 AM PAGER/CONTACT #: [facility] in [facility]03-30-[facility]22 Miscellaneous Notes* Telephone Encounter - Gracy Sears APRN.CNP - 02/18/2022 1:32 PM EDT PDMP website checked and validated. All prescriptions have been APPROPRIATELY filled. No suspiciousactivity was identified. February 18, 2022 Gracy Sears APRN.CNP * Telephone Encounter - Rachel Akhtar RN - 02/18/2022 12:04 PM EDT Jocelin calls and states that [employer] sent a letter dated 02/12/2022 that states that prescription was never sent to pharmacy. Jocelin asking if provider can try and send prescription again? Please review and advise, Rachel Akhtar RN documented in this encounterFlower [facility]02-07-2022 History of Present illness Narrative* Brock Portillo MD - 12/29/2021 9:46 AM EST Images from the original note were not included. SPINE SURGERY NEW PATIENT PCP: Navin Ackerman MD REFERRING PROVIDER: Dr. Sanjay Young SUBJECTIVE HISTORY OF PRESENT ILLNESS: Miroslava Peralta is a 71 year old male. CHIEF COMPLAINT: low back and bilateral leg pain PRECIPITATING EVENT: None DURATION OF SYMPTOMS: Greater Than 3 Months Complains of buttock pain > LE leg pain pain in L5 distribution. This has been progressing over the last few years. The pain is worse activity partially relieved with rest. It is overall debilitating for the patient daily activities and work. Conservative measures offering only mild relief. He denies any weakness bowel bladder incontinence. PAIN EVALUATION 12/29/2021 0937 Pain Level: 5 Pain Location: Back-Lower Description: Aching;Dull;Sharp Duration Amount of Time: ongoing Frequency: Continuous Intervention/Comfort measure: Medication Comments: Injections Pain Radiation: down the right and left thigh, below the right and left knee and to the right and left foot/feet Aggravating Factors: Activity Alleviating Factors: Rest Pain Ratio: Pain in the back is greater than in the leg DERMATOMAL DISTRIBUTION: Right: L5 Left: L5 AMBULATORY STATUS: Impaired Community Distances ANTIPLATELET OR ANTICOAGULATION STATUS: No PREVIOUS CONSERVATIVE TREATMENTS: OTC NSAIDS for 3 Months or Greater (Ibuprofen) Muscle Relaxants Membrane Stabilizers Physical therapy 2020 Epidural injection on 12/09/2021 and 12/23/2021 PREVIOUS SPINAL SURGERY: ?None ACTIVE PROBLEM LIST Hypertension Sleeping Difficulty Anxiety Impaired Fasting Blood Sugar S/P Hip Replacement Shoulder Pain, Right Primary Localized Osteoarthrosis of Shoulder Region S/P Shoulder Joint Replacement Chronic Hepatitis C Without Hepatic Coma (Hcc) Chronic Bilateral Low Back Pain Without Sciatica Mgus (Monoclonal Gammopathy of Unknown Significance) Numbness and Tingling of Foot PAST MEDICAL HISTORY Diagnosis Date 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 SKIN BIOPSY HX FAMILY HISTORY Problem Relation Age of Onset Cancer Mother breast cancer Hypertension Mother None Father father in train accident at yuni age Hypertension Sister Social History Tobacco Use Smoking status: Former Smoker Packs/day: 2.00 Years: 23.00 Pack years: 46.00 Types: Cigarettes Quit date: 11/22/1992 Years since quittin.1 Smokeless tobacco: Never Used Substance Use Topics Alcohol use: Not Currently Comment: quit in 1991. Drug use: No Comment: Quit drugs in ~. ALLERGIES Allergen Reactions Cardizem [Diltiazem* Other: See Comments panic attack Diovan [Valsartan] GI Upset Caused nausea Hyzaar [Losartan-Hy* Other: See Comments Mood change Lopressor [Metoprol* Other: See Comments no energy, wiped pt out MEDICATIONS: gabapentin (NEURONTIN) 300 mg capsule Take 2 capsules by mouth three times daily for 30 days. Take 1 capsule three times daily for two weeks then increase to 2 capsules three times daily. amLODIPine (NORVASC) 10 mg tablet Take 1 tablet by mouth once daily. naproxen (NAPROSYN) 500 mg tablet TAKE 1 TABLET TWICE DAILY NEEDED for pain and inflammation with food traZODone (DESYREL) 150 mg tablet Take 1 tablet by mouth daily at bedtime. multivit,thx,calcium,iron,mins (MULTIVITAMIN AND MINERAL ORAL) Take by mouth. omega-3 fatty acids/vitamin e(FISH OIL 1,000 MG CAP) Take one(1) tablet daily by mouth REVIEW OF SYSTEMS: PAIN ASSESSMENT: See HPI. GENERAL: Denies fever, chills malaise and weight loss. HEENT: No recent change in vision or hearing. CARDIOVASCULAR: Denies chest pain, history of A-fib, valvular disease, or pacemaker/ICD. RESPIRATORY: Denies SOB, sputum production, and hemoptysis. GI: Denies GI ulcers, inflammatory disease, or liver disease. : Denies change in frequency or urgency, kidney disease, and burning with urination. MUSCULOSKELETAL: Negative for joint pain or swelling, back pain or muscle pain. SKIN: Denies rash or itching. PSYCHOLOGICAL: Denies uncontrolled depression or anxiety. NEURO: Denies CVA, seizures, headaches. ENDOCRINE: Denies diabetes, thyroid disease. HEMATOLOGY/LYMPHOLOGY: Denies cancer, bleeding or clotting disorders, anemia,and DVT's. ALLERGIC/IMMUNOLOGICAL: Denies risks for infection, or recent MRSA infections. Patient Entered Questionnaires Spine Questions 12/29/2021 Pain Location: Lower back Pain Duration: 1 to 5 years Pain over last 6 months: Every day or nearly every day in the past 6 months Symptoms from neck/cervical spine: No Employment Status: Disabled due to back pain, permanently or temporarily Off work 1 month or more due to back/neck pain: Does not apply Applied for/receive disability/WC due to low back/neck pain Does not apply Involved in law suit/legal claim: No PROMIS Score Percentiles Physical Health 12/29/2021 Physical Function Percentile 0 Sleep Percentile 27* Fatigue Percentile 16* Pain Interference Percentile 2 PROMIS SOCIAL ROLE SCORE 12/29/2021 Social Role Satisfaction Percentile 4 PROMIS Global Health Scale 12/29/2021 Physical Health Percentile 7 Mental Health Percentile 5 Percentiles provide an indication of how the patient's score ranks in relation to the general population. Higher percentile rankings indicate better function/quality of life. 50th percentile is the average of the general population and indicates half of respondents had a worse score. Depression Screening: PHQ-9 12/29/2021 Score 16 PHQ-9 Self-harm Question 12/29/2021 Thoughts that you would be better off , or of hurting yourself in some way 0 PHQ-9 Self-Harm (Item 9) response options: 0 Not at all 1 Several days 2 More than half the days 3 Nearly every day PHQ-9 Levels: 0-4 No to mild depression 5-9 Mild depression 10-14 Moderate depression 15-19 Moderately severe depression 20-27 Severe depression OBJECTIVE: PHYSICAL EXAM BP 152/85 (BP Site: Left Arm, BP Position: Sitting, BP Cuff Size: Large Adult) Pulse 91 Ht 180.3 cm (5' 11 ) Wt 102.3 kg (225 lb 9.6 oz) SpO2 97% BMI 31.46 kg/m Oriented x3 PERRL FS Motor: UE D 5/5, B 5/5, T 5/5, G 5/5, HI 5/5 LE HF 5/5, KE 5/5, DF 5/5, PF 5/5, EHL 5/5 Gait is normal Hip exam is normal Reflex 2+ NEURO TESTS: None DATA REVIEW MRI lumbar spine shows multilevel degenerative stenosis worse at L3-4, L4-5 causing moderate severestenosis ASSESSMENT/PLAN (M48.062) Spinal stenosis of lumbar region with neurogenic claudication (R26.9) Abnormality of gait Patient with neurogenic claudication over many months Conservative management offering only mild relief Is debilitating preventing patient daily activities 1. L3-5 laminectomy 2. Follow up: for preoperative evaluation SIGNATURE: Brock Portillo MD PATIENT NAME: Miroslava Peralta DATE: December 29, 2021 TIME: 9:46 AM PAGER: documented in this encounterF[facility]11-09-2021 History of Present illness Narrative* Jannia Izquierdo, RT(R) - 09/30/2021 3:45 PM EST Radiology Service Progress Note PATIENT NAME: Miroslava Peralta DATE OF SERVICE: September 30, 2021 TIME: 3:55 PM PATIENT IDENTITY VERIFICATION COMPLETED USING TWO (2) IDENTIFIERS: Name and Date of confirmedby patient verbally. FALL SCREENING: Has the patient had 2 falls in the last year or 1 fall with injury or currently using an Ambulatory Assistive Device (Walker, Cane, Wheelchair, Crutches, etc.)? No PATIENT GENDER DATA: Male PATIENT RELEVANT IMPLANT DATA REVIEWED: Not Applicable RADIOLOGY DEPARTMENT: General X-ray: Exam(s) Completed: Upper Extremity X- Ray(s): Hand, bilateral PERIPHERAL IV DATA: Not applicable SIGNED BY: RT Natalio(R) September 30, 2021 3:55 PM documented in this encounterFlower [facility]08-29-2021 History of Past illness Narrative* Problem Noted Date Resolved Date Numbness and tingling of foot 07/20/2021 Overview: 07/18/21 EMG/NCS 1. 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 These changes are most severe in degree at the S1 root level where there is moderate active motor axon loss change above and below the knee. At L5 these changes are moderate in degree and active change is only seen below the knee. At L3/4 these changes are moderate to severe in degree but without any evidence of active/ongoing motor fiber loss. Screening studies in the right lower limb show similar, but slightly less significant, active on chronic changes at L5/S1 and moderate chronic (noactive) motor axon loss changes at L3/4 suggesting this is a bilateral process and/or related to significant central canal stenosis. 2. 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 Due to overlapping electrodiagnostic features with #1, precise severity is difficult to determine electrodiagnostically. 04/23/21 bone marrow: does not suggest lymphoplasmacytic lymphoma. 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 04/01/[address] Bhat. ESR 29, CK 554 (weight shirt trimmer). Neg: Lead, B2 microglubulin, B12, CMP, CBC/dif. UPEP+ monoclonal protein 24h w/M spine c/ interp 03/11/21 SPEP + m-protein, K/L ratio 1.17, UPEP negative Bilateral hand, foot and ankle numbness Chronic bilateral low back pain without sciatica 12/18/2020 03/22/2022 Primary localized osteoarthrosis of shoulder reg ion 12/12/2014 03/22/2022 Shoulder pain, right 09/04/2014 03/22/2022 Impaired fasting blood sugar 10/02/201011/2021 Anxiety 09/29/2010 03/22/2022 Diarrhea 07/31/2010 06/16/2019 documented as of this encounter (statuses as of 03/24/2022) [facility] of Past illness Narrative* Problem Noted Date Resolved Date Numbness and tingling of foot 07/20/2021 Overview: 07/18/21 EMG/NCS 1. 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 These changes are most severe in degree at the S1 root level where there is moderate active motor axon loss change above and below the knee. At L5 these changes are moderate in degree and active change is only seen below the knee. At L3/4 these changes are moderate to severe in degree but without any evidence of active/ongoing motor fiber loss. Screening studies in the right lower limb show similar, but slightly less significant, active on chronic changes at L5/S1 and moderate chronic (noactive) motor axon loss changes at L3/4 suggesting this is a bilateral process and/or related to significant central canal stenosis. 2. 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 Due to overlapping electrodiagnostic features with #1, precise severity is difficult to determine electrodiagnostically. 04/23/21 bone marrow: does not suggest lymphoplasmacytic lymphoma. 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 04/01/[address] Bhat. ESR 29, CK 554 (weight shirt trimmer). Neg: Lead, B2 microglubulin, B12, CMP, CBC/dif. UPEP+ monoclonal protein 24h w/M spine c/ interp 03/11/21 SPEP + m-protein, K/L ratio 1.17, UPEP negative Bilateral hand, foot and ankle numbness Chronic bilateral low back pain without sciatica 12/18/2020 03/22/2022 Primary localized osteoarthrosis of shoulder reg ion 12/12/2014 03/22/2022 Shoulder pain, right 09/04/2014 03/22/2022 Impaired fasting blood sugar 10/02/201011/2021 Anxiety 09/29/2010 03/22/2022 Diarrhea 07/31/2010 06/16/2019 documented as of this encounter (statuses as of 03/26/2022) [facility] of Past illness Narrative* Problem Noted Date Resolved Date Numbness and tingling of foot 07/20/2021 Overview: 07/18/21 EMG/NCS 1. 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 These changes are most severe in degree at the S1 root level where there is moderate active motor axon loss change above and below the knee. At L5 these changes are moderate in degree and active change is only seen below the knee. At L3/4 these changes are moderate to severe in degree but without any evidence of active/ongoing motor fiber loss. Screening studies in the right lower limb show similar, but slightly less significant, active on chronic changes at L5/S1 and moderate chronic (noactive) motor axon loss changes at L3/4 suggesting this is a bilateral process and/or related to significant central canal stenosis. 2. 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 Due to overlapping electrodiagnostic features with #1, precise severity is difficult to determine electrodiagnostically. 04/23/21 bone marrow: does not suggest lymphoplasmacytic lymphoma. 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 04/01/[address] Bhat. ESR 29, CK 554 (weight shirt trimmer). Neg: Lead, B2 microglubulin, B12, CMP, CBC/dif. UPEP+ monoclonal protein 24h w/M spine c/ interp 03/11/21 SPEP + m-protein, K/L ratio 1.17, UPEP negative Bilateral hand, foot and ankle numbness Chronic bilateral low back pain without sciatica 12/18/2020 03/22/2022 Primary localized osteoarthrosis of shoulder reg ion 12/12/2014 03/22/2022 Shoulder pain, right 09/04/2014 03/22/2022 Impaired fasting blood sugar 10/02/201011/2021 Anxiety 09/29/2010 03/22/2022 Diarrhea 07/31/2010 06/16/2019 documented as of this encounter (statuses as of 03/27/2022) [facility] of Past illness Narrative* Problem Noted Date Resolved Date Numbness and tingling of foot 07/20/2021 Overview: 07/18/21 EMG/NCS 1. 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 These changes are most severe in degree at the S1 root level where there is moderate active motor axon loss change above and below the knee. At L5 these changes are moderate in degree and active change is only seen below the knee. At L3/4 these changes are moderate to severe in degree but without any evidence of active/ongoing motor fiber loss. Screening studies in the right lower limb show similar, but slightly less significant, active on chronic changes at L5/S1 and moderate chronic (noactive) motor axon loss changes at L3/4 suggesting this is a bilateral process and/or related to significant central canal stenosis. 2. 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 Due to overlapping electrodiagnostic features with #1, precise severity is difficult to determine electrodiagnostically. 04/23/21 bone marrow: does not suggest lymphoplasmacytic lymphoma. 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 04/01/[address] Bhat. ESR 29, CK 554 (weight shirt trimmer). Neg: Lead, B2 microglubulin, B12, CMP, CBC/dif. UPEP+ monoclonal protein 24h w/M spine c/ interp 03/11/21 SPEP + m-protein, K/L ratio 1.17, UPEP negative Bilateral hand, foot and ankle numbness Chronic bilateral low back pain without sciatica 12/18/2020 03/22/2022 Primary localized osteoarthrosis of shoulder reg ion 12/12/2014 03/22/2022 Shoulder pain, right 09/04/2014 03/22/2022 Impaired fasting blood sugar 10/02/201011/2021 Anxiety 09/29/2010 03/22/2022 Diarrhea 07/31/2010 06/16/2019 documented as of this encounter (statuses as of 04/01/2022) [facility]08-29-2021 History of Past illness Narrative* Problem Noted Date Resolved Date Numbness and tingling of foot 07/20/2021 Overview: 07/18/21 EMG/NCS 1. 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 These changes are most severe in degree at the S1 root level where there is moderate active motor axon loss change above and below the knee. At L5 these changes are moderate in degree and active change is only seen below the knee. At L3/4 these changes are moderate to severe in degree but without any evidence of active/ongoing motor fiber loss. Screening studies in the right lower limb show similar, but slightly less significant, active on chronic changes at L5/S1 and moderate chronic (noactive) motor axon loss changes at L3/4 suggesting this is a bilateral process and/or related to significant central canal stenosis. 2. 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 Due to overlapping electrodiagnostic features with #1, precise severity is difficult to determine electrodiagnostically. 04/23/21 bone marrow: does not suggest lymphoplasmacytic lymphoma. 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 04/01/[address] Bhat. ESR 29, CK 554 (weight shirt trimmer). Neg: Lead, B2 microglubulin, B12, CMP, CBC/dif. UPEP+ monoclonal protein 24h w/M spine c/ interp 03/11/21 SPEP + m-protein, K/L ratio 1.17, UPEP negative Bilateral hand, foot and ankle numbness Chronic bilateral low back pain without sciatica 12/18/2020 03/22/2022 Primary localized osteoarthrosis of shoulder reg ion 12/12/2014 03/22/2022 Shoulder pain, right 09/04/2014 03/22/2022 Impaired fasting blood sugar 10/02/201011/2021 Anxiety 09/29/2010 03/22/2022 Diarrhea 07/31/2010 06/16/2019 documented as of this encounter (statuses as of 04/06/2022) [facility]08-29-2021 History of Past illness Narrative* Problem Noted Date Resolved Date Numbness and tingling of foot 07/20/2021 Overview: 07/18/21 EMG/NCS 1. 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 These changes are most severe in degree at the S1 root level where there is moderate active motor axon loss change above and below the knee. At L5 these changes are moderate in degree and active change is only seen below the knee. At L3/4 these changes are moderate to severe in degree but without any evidence of active/ongoing motor fiber loss. Screening studies in the right lower limb show similar, but slightly less significant, active on chronic changes at L5/S1 and moderate chronic (noactive) motor axon loss changes at L3/4 suggesting this is a bilateral process and/or related to significant central canal stenosis. 2. 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 Due to overlapping electrodiagnostic features with #1, precise severity is difficult to determine electrodiagnostically. 04/23/21 bone marrow: does not suggest lymphoplasmacytic lymphoma. 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 04/01/[address] Bhat. ESR 29, CK 554 (weight shirt trimmer). Neg: Lead, B2 microglubulin, B12, CMP, CBC/dif. UPEP+ monoclonal protein 24h w/M spine c/ interp 03/11/21 SPEP + m-protein, K/L ratio 1.17, UPEP negative Bilateral hand, foot and ankle numbness Chronic bilateral low back pain without sciatica 12/18/2020 03/22/2022 Primary localized osteoarthrosis of shoulder reg ion 12/12/2014 03/22/2022 Shoulder pain, right 09/04/2014 03/22/2022 Impaired fasting blood sugar 10/02/201011/2021 Anxiety 09/29/2010 03/22/2022 Diarrhea 07/31/2010 06/16/2019 documented as of this encounter (statuses as of 04/06/2022) [facility]08-29-2021 History of Past illness Narrative* Problem Noted Date Resolved Date Numbness and tingling of foot 07/20/2021 Overview: 07/18/21 EMG/NCS 1. 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 These changes are most severe in degree at the S1 root level where there is moderate active motor axon loss change above and below the knee. At L5 these changes are moderate in degree and active change is only seen below the knee. At L3/4 these changes are moderate to severe in degree but without any evidence of active/ongoing motor fiber loss. Screening studies in the right lower limb show similar, but slightly less significant, active on chronic changes at L5/S1 and moderate chronic (noactive) motor axon loss changes at L3/4 suggesting this is a bilateral process and/or related to significant central canal stenosis. 2. 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 Due to overlapping electrodiagnostic features with #1, precise severity is difficult to determine electrodiagnostically. 04/23/21 bone marrow: does not suggest lymphoplasmacytic lymphoma. 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 04/01/[address] Bhat. ESR 29, CK 554 (weight shirt trimmer). Neg: Lead, B2 microglubulin, B12, CMP, CBC/dif. UPEP+ monoclonal protein 24h w/M spine c/ interp 03/11/21 SPEP + m-protein, K/L ratio 1.17, UPEP negative Bilateral hand, foot and ankle numbness Chronic bilateral low back pain without sciatica 12/18/2020 03/22/2022 Primary localized osteoarthrosis of shoulder reg ion 12/12/2014 03/22/2022 Shoulder pain, right 09/04/2014 03/22/2022 Impaired fasting blood sugar 10/02/201011/2021 Anxiety 09/29/2010 03/22/2022 Diarrhea 07/31/2010 06/16/2019 documented as of this encounter (statuses as of 04/10/2022) [facility]08-29-2021 History of Past illness Narrative* Problem Noted Date Resolved Date Numbness and tingling of foot 07/20/2021 Overview: 07/18/21 EMG/NCS 1. 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 These changes are most severe in degree at the S1 root level where there is moderate active motor axon loss change above and below the knee. At L5 these changes are moderate in degree and active change is only seen below the knee. At L3/4 these changes are moderate to severe in degree but without any evidence of active/ongoing motor fiber loss. Screening studies in the right lower limb show similar, but slightly less significant, active on chronic changes at L5/S1 and moderate chronic (noactive) motor axon loss changes at L3/4 suggesting this is a bilateral process and/or related to significant central canal stenosis. 2. 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 Due to overlapping electrodiagnostic features with #1, precise severity is difficult to determine electrodiagnostically. 04/23/21 bone marrow: does not suggest lymphoplasmacytic lymphoma. 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 04/01/[address] Bhat. ESR 29, CK 554 (weight shirt trimmer). Neg: Lead, B2 microglubulin, B12, CMP, CBC/dif. UPEP+ monoclonal protein 24h w/M spine c/ interp 03/11/21 SPEP + m-protein, K/L ratio 1.17, UPEP negative Bilateral hand, foot and ankle numbness Chronic bilateral low back pain without sciatica 12/18/2020 03/22/2022 Primary localized osteoarthrosis of shoulder reg ion 12/12/2014 03/22/2022 Shoulder pain, right 09/04/2014 03/22/2022 Impaired fasting blood sugar 10/02/201011/2021 Anxiety 09/29/2010 03/22/2022 Diarrhea 07/31/2010 06/16/2019 documented as of this encounter (statuses as of 04/14/2022) [facility]08-29-2021 History of Past illness Narrative* Problem Noted Date Resolved Date Numbness and tingling of foot 07/20/2021 Overview: 07/18/21 EMG/NCS 1. 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 These changes are most severe in degree at the S1 root level where there is moderate active motor axon loss change above and below the knee. At L5 these changes are moderate in degree and active change is only seen below the knee. At L3/4 these changes are moderate to severe in degree but without any evidence of active/ongoing motor fiber loss. Screening studies in the right lower limb show similar, but slightly less significant, active on chronic changes at L5/S1 and moderate chronic (noactive) motor axon loss changes at L3/4 suggesting this is a bilateral process and/or related to significant central canal stenosis. 2. 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 Due to overlapping electrodiagnostic features with #1, precise severity is difficult to determine electrodiagnostically. 04/23/21 bone marrow: does not suggest lymphoplasmacytic lymphoma. 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 04/01/[address] Bhat. ESR 29, CK 554 (weight shirt trimmer). Neg: Lead, B2 microglubulin, B12, CMP, CBC/dif. UPEP+ monoclonal protein 24h w/M spine c/ interp 03/11/21 SPEP + m-protein, K/L ratio 1.17, UPEP negative Bilateral hand, foot and ankle numbness Chronic bilateral low back pain without sciatica 12/18/2020 03/22/2022 Primary localized osteoarthrosis of shoulder reg ion 12/12/2014 03/22/2022 Shoulder pain, right 09/04/2014 03/22/2022 Impaired fasting blood sugar 10/02/201011/2021 Anxiety 09/29/2010 03/22/2022 Diarrhea 07/31/2010 06/16/2019 documented as of this encounter (statuses as of 04/16/2022) [facility]08-29-2021 History of Past illness Narrative* Problem Noted Date Resolved Date Numbness and tingling of foot 07/20/2021 Overview: 07/18/21 EMG/NCS 1. 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 These changes are most severe in degree at the S1 root level where there is moderate active motor axon loss change above and below the knee. At L5 these changes are moderate in degree and active change is only seen below the knee. At L3/4 these changes are moderate to severe in degree but without any evidence of active/ongoing motor fiber loss. Screening studies in the right lower limb show similar, but slightly less significant, active on chronic changes at L5/S1 and moderate chronic (noactive) motor axon loss changes at L3/4 suggesting this is a bilateral process and/or related to significant central canal stenosis. 2. 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 Due to overlapping electrodiagnostic features with #1, precise severity is difficult to determine electrodiagnostically. 04/23/21 bone marrow: does not suggest lymphoplasmacytic lymphoma. 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 04/01/[address] Bhat. ESR 29, CK 554 (weight shirt trimmer). Neg: Lead, B2 microglubulin, B12, CMP, CBC/dif. UPEP+ monoclonal protein 24h w/M spine c/ interp 03/11/21 SPEP + m-protein, K/L ratio 1.17, UPEP negative Bilateral hand, foot and ankle numbness Chronic bilateral low back pain without sciatica 12/18/2020 03/22/2022 Primary localized osteoarthrosis of shoulder reg ion 12/12/2014 03/22/2022 Shoulder pain, right 09/04/2014 03/22/2022 Impaired fasting blood sugar 10/02/201011/2021 Anxiety 09/29/2010 03/22/2022 Diarrhea 07/31/2010 06/16/2019 documented as of this encounter (statuses as of 05/04/2022) [facility]08-29-2021 History of Past illness Narrative* Problem Noted Date Resolved Date Numbness and tingling of foot 07/20/2021 Overview: 07/18/21 EMG/NCS 1. 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 These changes are most severe in degree at the S1 root level where there is moderate active motor axon loss change above and below the knee. At L5 these changes are moderate in degree and active change is only seen below the knee. At L3/4 these changes are moderate to severe in degree but without any evidence of active/ongoing motor fiber loss. Screening studies in the right lower limb show similar, but slightly less significant, active on chronic changes at L5/S1 and moderate chronic (noactive) motor axon loss changes at L3/4 suggesting this is a bilateral process and/or related to significant central canal stenosis. 2. 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 Due to overlapping electrodiagnostic features with #1, precise severity is difficult to determine electrodiagnostically. 04/23/21 bone marrow: does not suggest lymphoplasmacytic lymphoma. 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 04/01/[address] Bhat. ESR 29, CK 554 (weight shirt trimmer). Neg: Lead, B2 microglubulin, B12, CMP, CBC/dif. UPEP+ monoclonal protein 24h w/M spine c/ interp 03/11/21 SPEP + m-protein, K/L ratio 1.17, UPEP negative Bilateral hand, foot and ankle numbness Chronic bilateral low back pain without sciatica 12/18/2020 03/22/2022 Primary localized osteoarthrosis of shoulder reg ion 12/12/2014 03/22/2022 Shoulder pain, right 09/04/2014 03/22/2022 Impaired fasting blood sugar 10/02/201011/2021 Anxiety 09/29/2010 03/22/2022 Diarrhea 07/31/2010 06/16/2019 documented as of this encounter (statuses as of 05/06/2022) [facility]08[facility]2021 History of Past illness Narrative* Problem Noted Date Resolved Date Numbness and tingling of foot 07/20/2021 Overview: 07/18/21 EMG/NCS 1. 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 These changes are most severe in degree at the S1 root level where there is moderate active motor axon loss change above and below the knee. At L5 these changes are moderate in degree and active change is only seen below the knee. At L3/4 these changes are moderate to severe in degree but without any evidence of active/ongoing motor fiber loss. Screening studies in the right lower limb show similar, but slightly less significant, active on chronic changes at L5/S1 and moderate chronic (noactive) motor axon loss changes at L3/4 suggesting this is a bilateral process and/or related to significant central canal stenosis. 2. 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 Due to overlapping electrodiagnostic features with #1, precise severity is difficult to determine electrodiagnostically. 04/23/21 bone marrow: does not suggest lymphoplasmacytic lymphoma. 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 04/01/[address] Bhat. ESR 29, CK 554 (weight shirt trimmer). Neg: Lead, B2 microglubulin, B12, CMP, CBC/dif. UPEP+ monoclonal protein 24h w/M spine c/ interp 03/11/21 SPEP + m-protein, K/L ratio 1.17, UPEP negative Bilateral hand, foot and ankle numbness Chronic bilateral low back pain without sciatica 12/18/2020 03/22/2022 Primary localized osteoarthrosis of shoulder reg ion 12/12/2014 03/22/2022 Shoulder pain, right 09/04/2014 03/22/2022 Impaired fasting blood sugar 10/02/201011/2021 Anxiety 09/29/2010 03/22/2022 Diarrhea 07/31/2010 06/16/2019 documented as of this encounter (statuses as of 05/07/2022) [facility]08-29-2021 History of Past illness Narrative* Problem Noted Date Resolved Date Numbness and tingling of foot 07/20/2021 Overview: 07/18/21 EMG/NCS 1. 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 These changes are most severe in degree at the S1 root level where there is moderate active motor axon loss change above and below the knee. At L5 these changes are moderate in degree and active change is only seen below the knee. At L3/4 these changes are moderate to severe in degree but without any evidence of active/ongoing motor fiber loss. Screening studies in the right lower limb show similar, but slightly less significant, active on chronic changes at L5/S1 and moderate chronic (noactive) motor axon loss changes at L3/4 suggesting this is a bilateral process and/or related to significant central canal stenosis. 2. 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 Due to overlapping electrodiagnostic features with #1, precise severity is difficult to determine electrodiagnostically. 04/23/21 bone marrow: does not suggest lymphoplasmacytic lymphoma. 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 04/01/[address] Bhat. ESR 29, CK 554 (weight shirt trimmer). Neg: Lead, B2 microglubulin, B12, CMP, CBC/dif. UPEP+ monoclonal protein 24h w/M spine c/ interp 03/11/21 SPEP + m-protein, K/L ratio 1.17, UPEP negative Bilateral hand, foot and ankle numbness Chronic bilateral low back pain without sciatica 12/18/2020 03/22/2022 Primary localized osteoarthrosis of shoulder reg ion 12/12/2014 03/22/2022 Shoulder pain, right 09/04/2014 03/22/2022 Impaired fasting blood sugar 10/02/201011/2021 Anxiety 09/29/2010 03/22/2022 Diarrhea 07/31/2010 06/16/2019 documented as of this encounter (statuses as of 05/12/2022) [facility] History of Past illness Narrative* Problem Noted Date Resolved Date Numbness and tingling of foot 07/20/2021 Overview: 07/18/21 EMG/NCS 1. 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 These changes are most severe in degree at the S1 root level where there is moderate active motor axon loss change above and below the knee. At L5 these changes are moderate in degree and active change is only seen below the knee. At L3/4 these changes are moderate to severe in degree but without any evidence of active/ongoing motor fiber loss. Screening studies in the right lower limb show similar, but slightly less significant, active on chronic changes at L5/S1 and moderate chronic (noactive) motor axon loss changes at L3/4 suggesting this is a bilateral process and/or related to significant central canal stenosis. 2. 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 Due to overlapping electrodiagnostic features with #1, precise severity is difficult to determine electrodiagnostically. 04/23/21 bone marrow: does not suggest lymphoplasmacytic lymphoma. 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 04/01/[address] Bhat. ESR 29, CK 554 (weight shirt trimmer). Neg: Lead, B2 microglubulin, B12, CMP, CBC/dif. UPEP+ monoclonal protein 24h w/M spine c/ interp 03/11/21 SPEP + m-protein, K/L ratio 1.17, UPEP negative Bilateral hand, foot and ankle numbness Chronic bilateral low back pain without sciatica 12/18/2020 03/22/2022 Primary localized osteoarthrosis of shoulder reg ion 12/12/2014 03/22/2022 Shoulder pain, right 09/04/2014 03/22/2022 Impaired fasting blood sugar 10/02/201011/2021 Anxiety 09/29/2010 03/22/2022 Diarrhea 07/31/2010 06/16/2019 documented as of this encounter (statuses as of 05/22/2022) [facility]21 History of Past illness Narrative* Problem Noted Date Resolved Date Numbness and tingling of foot 07/20/2021 Overview: 07/18/21 EMG/NCS 1. 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 These changes are most severe in degree at the S1 root level where there is moderate active motor axon loss change above and below the knee. At L5 these changes are moderate in degree and active change is only seen below the knee. At L3/4 these changes are moderate to severe in degree but without any evidence of active/ongoing motor fiber loss. Screening studies in the right lower limb show similar, but slightly less significant, active on chronic changes at L5/S1 and moderate chronic (noactive) motor axon loss changes at L3/4 suggesting this is a bilateral process and/or related to significant central canal stenosis. 2. 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 Due to overlapping electrodiagnostic features with #1, precise severity is difficult to determine electrodiagnostically. 04/23/21 bone marrow: does not suggest lymphoplasmacytic lymphoma. 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 04/01/[address] Bhat. ESR 29, CK 554 (weight shirt trimmer). Neg: Lead, B2 microglubulin, B12, CMP, CBC/dif. UPEP+ monoclonal protein 24h w/M spine c/ interp 03/11/21 SPEP + m-protein, K/L ratio 1.17, UPEP negative Bilateral hand, foot and ankle numbness Chronic bilateral low back pain without sciatica 12/18/2020 03/22/2022 Primary localized osteoarthrosis of shoulder reg ion 12/12/2014 03/22/2022 Shoulder pain, right 09/04/2014 03/22/2022 Impaired fasting blood sugar 10/02/201011/2021 Anxiety 09/29/2010 03/22/2022 Diarrhea 07/31/2010 06/16/2019 documented as of this encounter (statuses as of 05/29/2022) [facility]21 History of Past illness Narrative* Problem Noted Date Resolved Date Numbness and tingling of foot 07/20/2021 Overview: 07/18/21 EMG/NCS 1. 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 These changes are most severe in degree at the S1 root level where there is moderate active motor axon loss change above and below the knee. At L5 these changes are moderate in degree and active change is only seen below the knee. At L3/4 these changes are moderate to severe in degree but without any evidence of active/ongoing motor fiber loss. Screening studies in the right lower limb show similar, but slightly less significant, active on chronic changes at L5/S1 and moderate chronic (noactive) motor axon loss changes at L3/4 suggesting this is a bilateral process and/or related to significant central canal stenosis. 2. 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 Due to overlapping electrodiagnostic features with #1, precise severity is difficult to determine electrodiagnostically. 04/23/21 bone marrow: does not suggest lymphoplasmacytic lymphoma. 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 04/01/[address] Bhat. ESR 29, CK 554 (weight shirt trimmer). Neg: Lead, B2 microglubulin, B12, CMP, CBC/dif. UPEP+ monoclonal protein 24h w/M spine c/ interp 03/11/21 SPEP + m-protein, K/L ratio 1.17, UPEP negative Bilateral hand, foot and ankle numbness Chronic bilateral low back pain without sciatica 12/18/2020 03/22/2022 Primary localized osteoarthrosis of shoulder reg ion 12/12/2014 03/22/2022 Shoulder pain, right 09/04/2014 03/22/2022 Impaired fasting blood sugar 10/02/201011/2021 Anxiety 09/29/2010 03/22/2022 Diarrhea 07/31/2010 06/16/2019 documented as of this encounter (statuses as of 05/29/2022) [facility]08-29-2021 History of Past illness Narrative* Problem Noted Date Resolved Date Numbness and tingling of foot 07/20/2021 Overview: 07/18/21 EMG/NCS 1. 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 These changes are most severe in degree at the S1 root level where there is moderate active motor axon loss change above and below the knee. At L5 these changes are moderate in degree and active change is only seen below the knee. At L3/4 these changes are moderate to severe in degree but without any evidence of active/ongoing motor fiber loss. Screening studies in the right lower limb show similar, but slightly less significant, active on chronic changes at L5/S1 and moderate chronic (noactive) motor axon loss changes at L3/4 suggesting this is a bilateral process and/or related to significant central canal stenosis. 2. 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 Due to overlapping electrodiagnostic features with #1, precise severity is difficult to determine electrodiagnostically. 04/23/21 bone marrow: does not suggest lymphoplasmacytic lymphoma. 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 04/01/[address] Bhat. ESR 29, CK 554 (weight shirt trimmer). Neg: Lead, B2 microglubulin, B12, CMP, CBC/dif. UPEP+ monoclonal protein 24h w/M spine c/ interp 03/11/21 SPEP + m-protein, K/L ratio 1.17, UPEP negative Bilateral hand, foot and ankle numbness Chronic bilateral low back pain without sciatica 12/18/2020 03/22/2022 Primary localized osteoarthrosis of shoulder reg ion 12/12/2014 03/22/2022 Shoulder pain, right 09/04/2014 03/22/2022 Impaired fasting blood sugar 10/02/201011/2021 Anxiety 09/29/2010 03/22/2022 Diarrhea 07/31/2010 06/16/2019 documented as of this encounter (statuses as of 06/03/2022) [facility]08-29-2021 History of Past illness Narrative* Problem Noted Date Resolved Date Numbness and tingling of foot 07/20/2021 Overview: 07/18/21 EMG/NCS 1. 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 These changes are most severe in degree at the S1 root level where there is moderate active motor axon loss change above and below the knee. At L5 these changes are moderate in degree and active change is only seen below the knee. At L3/4 these changes are moderate to severe in degree but without any evidence of active/ongoing motor fiber loss. Screening studies in the right lower limb show similar, but slightly less significant, active on chronic changes at L5/S1 and moderate chronic (noactive) motor axon loss changes at L3/4 suggesting this is a bilateral process and/or related to significant central canal stenosis. 2. 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 Due to overlapping electrodiagnostic features with #1, precise severity is difficult to determine electrodiagnostically. 04/23/21 bone marrow: does not suggest lymphoplasmacytic lymphoma. 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 04/01/[address] Bhat. ESR 29, CK 554 (weight shirt trimmer). Neg: Lead, B2 microglubulin, B12, CMP, CBC/dif. UPEP+ monoclonal protein 24h w/M spine c/ interp 03/11/21 SPEP + m-protein, K/L ratio 1.17, UPEP negative Bilateral hand, foot and ankle numbness Chronic bilateral low back pain without sciatica 12/18/2020 03/22/2022 Primary localized osteoarthrosis of shoulder reg ion 12/12/2014 03/22/2022 Shoulder pain, right 09/04/2014 03/22/2022 Impaired fasting blood sugar 10/02/201011/2021 Anxiety 09/29/2010 03/22/2022 Diarrhea 07/31/2010 06/16/2019 documented as of this encounter (statuses as of 06/22/2022) [facility]08-29-2021 History of Past illness Narrative* Problem Noted Date Resolved Date Numbness and tingling of foot 07/20/2021 Overview: 07/18/21 EMG/NCS 1. 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 These changes are most severe in degree at the S1 root level where there is moderate active motor axon loss change above and below the knee. At L5 these changes are moderate in degree and active change is only seen below the knee. At L3/4 these changes are moderate to severe in degree but without any evidence of active/ongoing motor fiber loss. Screening studies in the right lower limb show similar, but slightly less significant, active on chronic changes at L5/S1 and moderate chronic (noactive) motor axon loss changes at L3/4 suggesting this is a bilateral process and/or related to significant central canal stenosis. 2. 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 Due to overlapping electrodiagnostic features with #1, precise severity is difficult to determine electrodiagnostically. 04/23/21 bone marrow: does not suggest lymphoplasmacytic lymphoma. 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 04/01/[address] Bhat. ESR 29, CK 554 (weight shirt trimmer). Neg: Lead, B2 microglubulin, B12, CMP, CBC/dif. UPEP+ monoclonal protein 24h w/M spine c/ interp 03/11/21 SPEP + m-protein, K/L ratio 1.17, UPEP negative Bilateral hand, foot and ankle numbness Chronic bilateral low back pain without sciatica 12/18/2020 03/22/2022 Primary localized osteoarthrosis of shoulder reg ion 12/12/2014 03/22/2022 Shoulder pain, right 09/04/2014 03/22/2022 Impaired fasting blood sugar 10/02/201011/2021 Anxiety 09/29/2010 03/22/2022 Diarrhea 07/31/2010 06/16/2019 documented as of this encounter (statuses as of 07/02/2022) [facility]08-29-2021 History of Past illness Narrative* Problem Noted Date Resolved Date Numbness and tingling of foot 07/20/2021 Overview: 07/18/21 EMG/NCS 1. 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 These changes are most severe in degree at the S1 root level where there is moderate active motor axon loss change above and below the knee. At L5 these changes are moderate in degree and active change is only seen below the knee. At L3/4 these changes are moderate to severe in degree but without any evidence of active/ongoing motor fiber loss. Screening studies in the right lower limb show similar, but slightly less significant, active on chronic changes at L5/S1 and moderate chronic (noactive) motor axon loss changes at L3/4 suggesting this is a bilateral process and/or related to significant central canal stenosis. 2. 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 Due to overlapping electrodiagnostic features with #1, precise severity is difficult to determine electrodiagnostically. 04/23/21 bone marrow: does not suggest lymphoplasmacytic lymphoma. 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 04/01/[address] Bhat. ESR 29, CK 554 (weight shirt trimmer). Neg: Lead, B2 microglubulin, B12, CMP, CBC/dif. UPEP+ monoclonal protein 24h w/M spine c/ interp 03/11/21 SPEP + m-protein, K/L ratio 1.17, UPEP negative Bilateral hand, foot and ankle numbness Chronic bilateral low back pain without sciatica 12/18/2020 03/22/2022 Primary localized osteoarthrosis of shoulder reg ion 12/12/2014 03/22/2022 Shoulder pain, right 09/04/2014 03/22/2022 Impaired fasting blood sugar 10/02/201011/2021 Anxiety 09/29/2010 03/22/2022 Diarrhea 07/31/2010 06/16/2019 documented as of this encounter (statuses as of 07/04/2022) [facility]08-29-2021 History of Past illness Narrative* Problem Noted Date Resolved Date Numbness and tingling of foot 07/20/2021 Overview: 07/18/21 EMG/NCS 1. 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 These changes are most severe in degree at the S1 root level where there is moderate active motor axon loss change above and below the knee. At L5 these changes are moderate in degree and active change is only seen below the knee. At L3/4 these changes are moderate to severe in degree but without any evidence of active/ongoing motor fiber loss. Screening studies in the right lower limb show similar, but slightly less significant, active on chronic changes at L5/S1 and moderate chronic (noactive) motor axon loss changes at L3/4 suggesting this is a bilateral process and/or related to significant central canal stenosis. 2. 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 Due to overlapping electrodiagnostic features with #1, precise severity is difficult to determine electrodiagnostically. 04/23/21 bone marrow: does not suggest lymphoplasmacytic lymphoma. 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 04/01/[address] Bhat. ESR 29, CK 554 (weight shirt trimmer). Neg: Lead, B2 microglubulin, B12, CMP, CBC/dif. UPEP+ monoclonal protein 24h w/M spine c/ interp 03/11/21 SPEP + m-protein, K/L ratio 1.17, UPEP negative Bilateral hand, foot and ankle numbness Chronic bilateral low back pain without sciatica 12/18/2020 03/22/2022 Primary localized osteoarthrosis of shoulder reg ion 12/12/2014 03/22/2022 Shoulder pain, right 09/04/2014 03/22/2022 Impaired fasting blood sugar 10/02/201011/2021 Anxiety 09/29/2010 03/22/2022 Diarrhea 07/31/2010 06/16/2019 documented as of this encounter (statuses as of 08/03/2022) [facility]08-29-2021 History of Past illness Narrative* Problem Noted Date Resolved Date Numbness and tingling of foot 07/20/2021 Overview: 07/18/21 EMG/NCS 1. 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 These changes are most severe in degree at the S1 root level where there is moderate active motor axon loss change above and below the knee. At L5 these changes are moderate in degree and active change is only seen below the knee. At L3/4 these changes are moderate to severe in degree but without any evidence of active/ongoing motor fiber loss. Screening studies in the right lower limb show similar, but slightly less significant, active on chronic changes at L5/S1 and moderate chronic (noactive) motor axon loss changes at L3/4 suggesting this is a bilateral process and/or related to significant central canal stenosis. 2. 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 Due to overlapping electrodiagnostic features with #1, precise severity is difficult to determine electrodiagnostically. 04/23/21 bone marrow: does not suggest lymphoplasmacytic lymphoma. 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 04/01/[address] Bhat. ESR 29, CK 554 (weight shirt trimmer). Neg: Lead, B2 microglubulin, B12, CMP, CBC/dif. UPEP+ monoclonal protein 24h w/M spine c/ interp 03/11/21 SPEP + m-protein, K/L ratio 1.17, UPEP negative Bilateral hand, foot and ankle numbness Chronic bilateral low back pain without sciatica 12/18/2020 03/22/2022 Primary localized osteoarthrosis of shoulder reg ion 12/12/2014 03/22/2022 Shoulder pain, right 09/04/2014 03/22/2022 Impaired fasting blood sugar 10/02/201011/2021 Anxiety 09/29/2010 03/22/2022 Diarrhea 07/31/2010 06/16/2019 documented as of this encounter (statuses as of 08/10/2022) [facility]08-29-2021 History of Past illness Narrative* Problem Noted Date Resolved Date Numbness and tingling of foot 07/20/2021 Overview: 07/18/21 EMG/NCS 1. 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 These changes are most severe in degree at the S1 root level where there is moderate active motor axon loss change above and below the knee. At L5 these changes are moderate in degree and active change is only seen below the knee. At L3/4 these changes are moderate to severe in degree but without any evidence of active/ongoing motor fiber loss. Screening studies in the right lower limb show similar, but slightly less significant, active on chronic changes at L5/S1 and moderate chronic (noactive) motor axon loss changes at L3/4 suggesting this is a bilateral process and/or related to significant central canal stenosis. 2. 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 Due to overlapping electrodiagnostic features with #1, precise severity is difficult to determine electrodiagnostically. 04/23/21 bone marrow: does not suggest lymphoplasmacytic lymphoma. 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 04/01/[address] Bhat. ESR 29, CK 554 (weight shirt trimmer). Neg: Lead, B2 microglubulin, B12, CMP, CBC/dif. UPEP+ monoclonal protein 24h w/M spine c/ interp 03/11/21 SPEP + m-protein, K/L ratio 1.17, UPEP negative Bilateral hand, foot and ankle numbness Chronic bilateral low back pain without sciatica 12/18/2020 03/22/2022 Primary localized osteoarthrosis of shoulder reg ion 12/12/2014 03/22/2022 Shoulder pain, right 09/04/2014 03/22/2022 Impaired fasting blood sugar 10/02/201011/2021 Anxiety 09/29/2010 03/22/2022 Diarrhea 07/31/2010 06/16/2019 documented as of this encounter (statuses as of 08/29/2022) [facility]2021 History of Past illness Narrative* Problem Noted Date Resolved Date Numbness and tingling of foot 07/20/2021 Overview: 07/18/21 EMG/NCS 1. 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 These changes are most severe in degree at the S1 root level where there is moderate active motor axon loss change above and below the knee. At L5 these changes are moderate in degree and active change is only seen below the knee. At L3/4 these changes are moderate to severe in degree but without any evidence of active/ongoing motor fiber loss. Screening studies in the right lower limb show similar, but slightly less significant, active on chronic changes at L5/S1 and moderate chronic (noactive) motor axon loss changes at L3/4 suggesting this is a bilateral process and/or related to significant central canal stenosis. 2. 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 Due to overlapping electrodiagnostic features with #1, precise severity is difficult to determine electrodiagnostically. 04/23/21 bone marrow: does not suggest lymphoplasmacytic lymphoma. 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 04/01/[address] Bhat. ESR 29, CK 554 (weight shirt trimmer). Neg: Lead, B2 microglubulin, B12, CMP, CBC/dif. UPEP+ monoclonal protein 24h w/M spine c/ interp 03/11/21 SPEP + m-protein, K/L ratio 1.17, UPEP negative Bilateral hand, foot and ankle numbness Chronic bilateral low back pain without sciatica 12/18/2020 03/22/2022 Primary localized osteoarthrosis of shoulder reg ion 12/12/2014 03/22/2022 Shoulder pain, right 09/04/2014 03/22/2022 Impaired fasting blood sugar 10/02/201011/2021 Anxiety 09/29/2010 03/22/2022 Diarrhea 07/31/2010 06/16/2019 documented as of this encounter (statuses as of 09/10/2022) [facility]08-29-2021 History of Past illness Narrative* Problem Noted Date Resolved Date Numbness and tingling of foot 07/20/2021 Overview: 07/18/21 EMG/NCS 1. 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 These changes are most severe in degree at the S1 root level where there is moderate active motor axon loss change above and below the knee. At L5 these changes are moderate in degree and active change is only seen below the knee. At L3/4 these changes are moderate to severe in degree but without any evidence of active/ongoing motor fiber loss. Screening studies in the right lower limb show similar, but slightly less significant, active on chronic changes at L5/S1 and moderate chronic (noactive) motor axon loss changes at L3/4 suggesting this is a bilateral process and/or related to significant central canal stenosis. 2. 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 Due to overlapping electrodiagnostic features with #1, precise severity is difficult to determine electrodiagnostically. 04/23/21 bone marrow: does not suggest lymphoplasmacytic lymphoma. 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 04/01/[address] Bhat. ESR 29, CK 554 (weight shirt trimmer). Neg: Lead, B2 microglubulin, B12, CMP, CBC/dif. UPEP+ monoclonal protein 24h w/M spine c/ interp 03/11/21 SPEP + m-protein, K/L ratio 1.17, UPEP negative Bilateral hand, foot and ankle numbness Chronic bilateral low back pain without sciatica 12/18/2020 03/22/2022 Primary localized osteoarthrosis of shoulder reg ion 12/12/2014 03/22/2022 Shoulder pain, right 09/04/2014 03/22/2022 Impaired fasting blood sugar 10/02/201011/2021 Anxiety 09/29/2010 03/22/2022 Diarrhea 07/31/2010 06/16/2019 documented as of this encounter (statuses as of 09/11/2022) [facility]21 History of Past illness Narrative* Problem Noted Date Resolved Date Numbness and tingling of foot 07/20/2021 Overview: 07/18/21 EMG/NCS 1. 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 These changes are most severe in degree at the S1 root level where there is moderate active motor axon loss change above and below the knee. At L5 these changes are moderate in degree and active change is only seen below the knee. At L3/4 these changes are moderate to severe in degree but without any evidence of active/ongoing motor fiber loss. Screening studies in the right lower limb show similar, but slightly less significant, active on chronic changes at L5/S1 and moderate chronic (noactive) motor axon loss changes at L3/4 suggesting this is a bilateral process and/or related to significant central canal stenosis. 2. 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 Due to overlapping electrodiagnostic features with #1, precise severity is difficult to determine electrodiagnostically. 04/23/21 bone marrow: does not suggest lymphoplasmacytic lymphoma. 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 04/01/[address] Bhat. ESR 29, CK 554 (weight shirt trimmer). Neg: Lead, B2 microglubulin, B12, CMP, CBC/dif. UPEP+ monoclonal protein 24h w/M spine c/ interp 03/11/21 SPEP + m-protein, K/L ratio 1.17, UPEP negative Bilateral hand, foot and ankle numbness Chronic bilateral low back pain without sciatica 12/18/2020 03/22/2022 Primary localized osteoarthrosis of shoulder reg ion 12/12/2014 03/22/2022 Shoulder pain, right 09/04/2014 03/22/2022 Impaired fasting blood sugar 10/02/201011/2021 Anxiety 09/29/2010 03/22/2022 Diarrhea 07/31/2010 06/16/2019 documented as of this encounter (statuses as of 09/28/2022) [facility]21 History of Past illness Narrative* Problem Noted Date Resolved Date Numbness and tingling of foot 07/20/2021 Overview: 07/18/21 EMG/NCS 1. 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 These changes are most severe in degree at the S1 root level where there is moderate active motor axon loss change above and below the knee. At L5 these changes are moderate in degree and active change is only seen below the knee. At L3/4 these changes are moderate to severe in degree but without any evidence of active/ongoing motor fiber loss. Screening studies in the right lower limb show similar, but slightly less significant, active on chronic changes at L5/S1 and moderate chronic (noactive) motor axon loss changes at L3/4 suggesting this is a bilateral process and/or related to significant central canal stenosis. 2. 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 Due to overlapping electrodiagnostic features with #1, precise severity is difficult to determine electrodiagnostically. 04/23/21 bone marrow: does not suggest lymphoplasmacytic lymphoma. 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 04/01/[address] Bhat. ESR 29, CK 554 (weight shirt trimmer). Neg: Lead, B2 microglubulin, B12, CMP, CBC/dif. UPEP+ monoclonal protein 24h w/M spine c/ interp 03/11/21 SPEP + m-protein, K/L ratio 1.17, UPEP negative Bilateral hand, foot and ankle numbness Chronic bilateral low back pain without sciatica 12/18/2020 03/22/2022 Primary localized osteoarthrosis of shoulder reg ion 12/12/2014 03/22/2022 Shoulder pain, right 09/04/2014 03/22/2022 Impaired fasting blood sugar 10/02/201011/2021 Anxiety 09/29/2010 03/22/2022 Diarrhea 07/31/2010 06/16/2019 documented as of this encounter (statuses as of 11/02/2022) [facility]21 History of Past illness Narrative* Problem Noted Date Resolved Date Numbness and tingling of foot 07/20/2021 Overview: 07/18/21 EMG/NCS 1. 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 These changes are most severe in degree at the S1 root level where there is moderate active motor axon loss change above and below the knee. At L5 these changes are moderate in degree and active change is only seen below the knee. At L3/4 these changes are moderate to severe in degree but without any evidence of active/ongoing motor fiber loss. Screening studies in the right lower limb show similar, but slightly less significant, active on chronic changes at L5/S1 and moderate chronic (noactive) motor axon loss changes at L3/4 suggesting this is a bilateral process and/or related to significant central canal stenosis. 2. 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 Due to overlapping electrodiagnostic features with #1, precise severity is difficult to determine electrodiagnostically. 04/23/21 bone marrow: does not suggest lymphoplasmacytic lymphoma. 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 04/01/[address] Bhat. ESR 29, CK 554 (weight shirt trimmer). Neg: Lead, B2 microglubulin, B12, CMP, CBC/dif. UPEP+ monoclonal protein 24h w/M spine c/ interp 03/11/21 SPEP + m-protein, K/L ratio 1.17, UPEP negative Bilateral hand, foot and ankle numbness Chronic bilateral low back pain without sciatica 12/18/2020 03/22/2022 Primary localized osteoarthrosis of shoulder reg ion 12/12/2014 03/22/2022 Shoulder pain, right 09/04/2014 03/22/2022 Impaired fasting blood sugar 10/02/201011/2021 Anxiety 09/29/2010 03/22/2022 Diarrhea 07/31/2010 06/16/2019 documented as of this encounter (statuses as of 11/03/2022) [facility] History of Past illness Narrative* Problem Noted Date Resolved Date Numbness and tingling of foot 07/20/2021 Overview: 07/18/21 EMG/NCS 1. 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 These changes are most severe in degree at the S1 root level where there is moderate active motor axon loss change above and below the knee. At L5 these changes are moderate in degree and active change is only seen below the knee. At L3/4 these changes are moderate to severe in degree but without any evidence of active/ongoing motor fiber loss. Screening studies in the right lower limb show similar, but slightly less significant, active on chronic changes at L5/S1 and moderate chronic (noactive) motor axon loss changes at L3/4 suggesting this is a bilateral process and/or related to significant central canal stenosis. 2. 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 Due to overlapping electrodiagnostic features with #1, precise severity is difficult to determine electrodiagnostically. 04/23/21 bone marrow: does not suggest lymphoplasmacytic lymphoma. 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 04/01/[address] Bhat. ESR 29, CK 554 (weight shirt trimmer). Neg: Lead, B2 microglubulin, B12, CMP, CBC/dif. UPEP+ monoclonal protein 24h w/M spine c/ interp 03/11/21 SPEP + m-protein, K/L ratio 1.17, UPEP negative Bilateral hand, foot and ankle numbness Chronic bilateral low back pain without sciatica 12/18/2020 03/22/2022 Primary localized osteoarthrosis of shoulder reg ion 12/12/2014 03/22/2022 Shoulder pain, right 09/04/2014 03/22/2022 Impaired fasting blood sugar 10/02/201011/2021 Anxiety 09/29/2010 03/22/2022 Diarrhea 07/31/2010 06/16/2019 documented as of this encounter (statuses as of 11/05/2022) [facility] History of Past illness Narrative* Problem Noted Date Resolved Date Numbness and tingling of foot 07/20/2021 Overview: 07/18/21 EMG/NCS 1. 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 These changes are most severe in degree at the S1 root level where there is moderate active motor axon loss change above and below the knee. At L5 these changes are moderate in degree and active change is only seen below the knee. At L3/4 these changes are moderate to severe in degree but without any evidence of active/ongoing motor fiber loss. Screening studies in the right lower limb show similar, but slightly less significant, active on chronic changes at L5/S1 and moderate chronic (noactive) motor axon loss changes at L3/4 suggesting this is a bilateral process and/or related to significant central canal stenosis. 2. 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 Due to overlapping electrodiagnostic features with #1, precise severity is difficult to determine electrodiagnostically. 04/23/21 bone marrow: does not suggest lymphoplasmacytic lymphoma. 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 04/01/[address] Bhat. ESR 29, CK 554 (weight shirt trimmer). Neg: Lead, B2 microglubulin, B12, CMP, CBC/dif. UPEP+ monoclonal protein 24h w/M spine c/ interp 03/11/21 SPEP + m-protein, K/L ratio 1.17, UPEP negative Bilateral hand, foot and ankle numbness Chronic bilateral low back pain without sciatica 12/18/2020 03/22/2022 Primary localized osteoarthrosis of shoulder reg ion 12/12/2014 03/22/2022 Shoulder pain, right 09/04/2014 03/22/2022 Impaired fasting blood sugar 10/02/201011/2021 Anxiety 09/29/2010 03/22/2022 documented as of this encounter (statuses as of 11/13/2022) [facility]08-13-[facility]21 History of Present illness Narrative* Charlene Pablo RT(R) - 07/04/2021 2:00 PM EDT Radiology Service Progress Note PATIENT NAME: Miroslava Peralta DATE OF SERVICE: July 04, 2021 TIME: 1:57 PM PATIENT IDENTITY VERIFICATION COMPLETED USING TWO (2) IDENTIFIERS: Name and Date of confirmedby patient verbally. FALL SCREENING: Has the patient had 2 falls in the last year or 1 fall with injury or currently using an Ambulatory Assistive Device (Walker, Cane, Wheelchair, Crutches, etc.)? No PATIENT GENDER DATA: Male PATIENT RELEVANT IMPLANT DATA REVIEWED: Yes RADIOLOGY DEPARTMENT: General X-ray: Exam(s) Completed: Pelvis X-Ray: Pelvis with Hip Bilateral Lower Extremity X-Ray(s): Knee, AP / Lat / Tunne / Merchant Bilateral and Wt. Bearing PERIPHERAL IV DATA: Not applicable SIGNED BY: RT Lg(R) July 04, 2021 1:57 PM [facility] History of Present illness Narrative* Alicja Ivey (Tech), Tech - 12/13/2020 3:50 PM EST Radiology Service Progress Note PATIENT NAME: Miroslava Peralta DATE OF SERVICE: December 13, 2020 TIME: 3:48 PM PATIENT IDENTITY VERIFICATION COMPLETED USING TWO (2) IDENTIFIERS: Name and Date of confirmedby patient verbally. FALL SCREENING: Has the patient had 2 falls in the last year or 1 fall with injury or currently using an Ambulatory Assistive Device (Walker, Cane, Wheelchair, Crutches, etc.)? No PATIENT GENDER DATA: Male PATIENT RELEVANT IMPLANT DATA REVIEWED: Not Applicable RADIOLOGY DEPARTMENT: General X-ray: Exam(s) Completed: Spine X-Ray(s): Lumbar AP / LAT / L5-S1 PERIPHERAL IV DATA: Not applicable SIGNED BY: Marissa Gooden December 13, 2020 3:48 PM [facility] History of Past illness Narrative* Problem Noted Date Resolved Date Diarrhea 07/31/2010 06/16/2019 documented as of this encounter (statuses as of 02/18/2022) [address]09-2010 History of Past illness Narrative* Problem Noted Date Resolved Date Diarrhea 07/31/2010 06/16/2019 documented as of this encounter (statuses as of 02/23/2022) [place] [id number] History of Past illness Narrative* Problem Noted Date Resolved Date Diarrhea 07/31/2010 06/16/2019 documented as of this encounter (statuses as of 02/23/2022) [address]09-2010 History of Past illness Narrative* Problem Noted Date Resolved Date Diarrhea 07/31/2010 06/16/2019 documented as of this encounter (statuses as of 02/26/2022) [address]09-2010 History of Past illness Narrative* Problem Noted Date Resolved Date Diarrhea 07/31/2010 06/16/2019 documented as of this encounter (statuses as of 03/02/2022) [place] [id number] History of Past illness Narrative* Problem Noted Date Resolved Date Diarrhea 07/31/2010 06/16/2019 documented as of this encounter (statuses as of 03/04/2022) [place] [id number] History of Past illness Narrative* Problem Noted Date Resolved Date Diarrhea 07/31/2010 06/16/2019 documented as of this encounter (statuses as of 03/19/2022) [facility] Narrative* Problem Noted Date Resolved Date Diarrhea 07/31/2010 06/16/2019 documented as of this encounter (statuses as of 03/20/2022) [facility]* Diagnosis Spinal stenosis of lumbar region with neurogenic claudication Spinal stenosis, lumbar region, with neurogenic claudication Abnormality of gait Spinal stenosis of lumbar region with neurogenic claudication Spinal stenosis, lumbar region, with neurogenic claudication [facility] Diagnosis Pre-op testing Preoperative examination, unspecified Chronic hepatitis C without hepatic coma (HCC) Chronic hepatitis C without mention of hepatic coma Primary hypertension Unspecified essential hypertension MGUS (monoclonal gammopathy of unknown significance) Monoclonal paraproteinemia Status post hip replacement, 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 Sleeping difficulty Sleep disturbance, unspecified Former smoker Personal history of tobacco use, presenting hazards to health Spinal stenosis of lumbar region with neurogenic claudication Spinal stenosis, lumbar region, with neurogenic claudication [facility] Diagnosis Essential hypertension Unspecified essential hypertension Primary localized osteoarthrosis of left shoulder region Sleeping difficulty Sleep disturbance, unspecified Spinal stenosis of lumbar region with neurogenic claudication Spinal stenosis, lumbar region, with neurogenic claudication [facility] Diagnosis OPENED IN ERROR- Primary To allow closing an encounter opened in error (used in SmartSet) Spinal stenosis of lumbar region with neurogenic claudication Spinal stenosis, lumbar region, with neurogenic claudication [facility] Diagnosis 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 Hepatitis C associated neuropathy (HCC) Unspecified viral hepatitis C without hepatic coma Spinal stenosis of lumbar region with neurogenic claudication Spinal stenosis, lumbar region, with neurogenic claudication Chronic pain of both knees Hip pain Pain in joint, pelvic region and thigh Abnormality of gait Neck pain Cervicalgia Numbness and tingling of both upper extremities Spinal stenosis of lumbar region with neurogenic claudication Spinal stenosis, lumbar region, with neurogenic claudication [facility] Diagnosis Impaired fasting blood sugar Impaired fasting glucose [facility] Diagnosis Pain in right hip- Primary Pain in joint, pelvic region and thigh [facility] S/P laminectomy Other postprocedural status [facility]* Diagnosis Neck pain Cervicalgia Numbness and tingling of both upper extremities [facility]* Diagnosis Spinal stenosis, lumbar region with neurogenic claudication- Primary [facility]* Diagnosis MGUS (monoclonal gammopathy of unknown significance)- Primary Monoclonal paraproteinemia [facility]* Diagnosis MGUS (monoclonal gammopathy of unknown significance)- Primary Monoclonal paraproteinemia [facility]* Diagnosis Essential hypertension- Primary Unspecified essential hypertension DDD (degenerative disc disease), lumbar Degeneration of lumbar or lumbosacral intervertebral disc S/P laminectomy Other postprocedural status Neurogenic claudication (HCC) Spinal stenosis, lumbar region, with neurogenic claudication Numbness and tingling of foot Disturbance of skin sensation MGUS (monoclonal gammopathy of unknown significance) Monoclonal paraproteinemia Impaired fasting blood sugar Impaired fasting glucose Vertigo Dizziness and giddiness [facility]* Diagnosis 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 Hepatitis C associated neuropathy (HCC) Unspecified viral hepatitis C without hepatic coma Spinal stenosis of lumbar region with neurogenic claudication Spinal stenosis, lumbar region, with neurogenic claudication Chronic pain of both knees Hip pain Pain in joint, pelvic region and thigh Abnormality of gait Neck pain Cervicalgia Numbness and tingling of both upper extremities Dizziness Dizziness and giddiness Cervical stenosis of spinal canal Spinal stenosis in cervical region [facility]* Diagnosis Chronic vertigo Ataxia Lack of coordination Fall, subsequent encounter [facility]* Diagnosis Sleeping difficulty Sleep disturbance, unspecified [facility]* Diagnosis Cervical spondylosis with myelopathy- Primary Spinal stenosis of cervical region Spinal stenosis in cervical region [facility]* Diagnosis Spinal stenosis of cervical region Spinal stenosis in cervical region [facility]* Diagnosis Essential hypertension- Primary Unspecified essential hypertension MGUS (monoclonal gammopathy of unknown significance) Monoclonal paraproteinemia Neurogenic claudication (HCC) Spinal stenosis, lumbar region, with neurogenic claudication S/P laminectomy Other postprocedural status Status post replacement of right shoulder joint Status post hip replacement, unspecified laterality Obesity, Class I, BMI 30-34.9 Obesity, unspecified Chronic hepatitis C without hepatic coma (HCC) Chronic hepatitis C without mention of hepatic coma Hypogonadism in [facility] Hypogonadism in male- Primary [facility] Diagnosis Testicular atrophy- Primary Atrophy of 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 Low serum follicle stimulating hormone (FSH) [facility]* Diagnosis Closed fracture of multiple ribs of left side with routine healing, subsequent encounter- Primary [facility]* Diagnosis Nonintractable headache, unspecified chronicity pattern, unspecified headache type- Primary [facility]* Diagnosis Hospital discharge follow-up- Primary Other follow-up examination Urinary incontinence, unspecified type Therapeutic opioid induced constipation S/P laminectomy Other postprocedural status Paresthesia of saddle area: Cauda equina ruled out Intractable back pain Backache, unspecified MGUS (monoclonal gammopathy of unknown significance) Monoclonal paraproteinemia Hypogonadism in male High serum follicle stimulating hormone (FSH) [facility] Diagnosis 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, subsequent encounter- Primary Neuropathy involving both lower extremities- Primary 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 Hepatitis C associated neuropathy (HCC) Unspecified viral hepatitis C without hepatic coma Spinal stenosis of lumbar region with neurogenic claudication Spinal stenosis, lumbar region, with neurogenic claudication Chronic pain of both knees Hip pain Pain in joint, pelvic region and thigh Abnormality of gait Neck pain Cervicalgia Numbness and tingling of both upper extremities Cervical stenosis of spinal canal Spinal stenosis in cervical region [facility] Diagnosis Neuropathy involving both lower extremities- Primary 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 Hepatitis C associated neuropathy (HCC) Unspecified viral hepatitis C without hepatic coma Spinal stenosis of lumbar region with neurogenic claudication Spinal stenosis, lumbar region, with neurogenic claudication Chronic pain of both knees Hip pain Pain in joint, pelvic region and thigh Abnormality of gait Neck pain Cervicalgia Numbness and tingling of both upper extremities Cervical stenosis of spinal canal Spinal stenosis in cervical region Dizziness Dizziness and giddiness [facility] Diagnosis 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- Primary Overflow incontinence of urine Overflow incontinence Dysuria [facility] Diagnosis 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, subsequent encounter- Primary [facility] Diagnosis 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, subsequent encounter- Primary Dislocation of hip joint prosthesis, subsequent encounter [facility] Diagnosis Dislocation of hip joint prosthesis, subsequent encounter- Primary 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, subsequent encounter Dislocation of prosthetic joint, initial encounter ([facility]) [facility]* Diagnosis MGUS (monoclonal gammopathy of unknown significance)- Primary Monoclonal paraproteinemia [facility] Diagnosis MGUS (monoclonal gammopathy of unknown significance)- Primary Monoclonal paraproteinemia Anemia, unspecified type [facility] Diagnosis Dislocation of hip joint prosthesis, subsequent encounter- Primary 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, subsequent encounter [facility]* Diagnosis Pain syndrome, chronic Chronic pain syndrome Post laminectomy syndrome Postlaminectomy syndrome, unspecified region Polyarthropathy Unspecified polyarthropathy or polyarthritis, site unspecified [facility] Diagnosis Primary hypertension- Primary Unspecified essential hypertension MGUS (monoclonal gammopathy of unknown significance) Monoclonal paraproteinemia Neurogenic claudication Spinal stenosis, lumbar region, with neurogenic claudication S/P laminectomy Other postprocedural status Intractable low back pain Lumbago Fecal smearing Paresthesia of saddle area: Cauda equina ruled out Hypogonadism in male High serum follicle stimulating hormone (FSH) Testicular atrophy Atrophy of 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 Periprosthetic hip fracture, sequela Sleeping difficulty Sleep disturbance, unspecified Post laminectomy syndrome Postlaminectomy syndrome, unspecified region Polyarthropathy Unspecified polyarthropathy or polyarthritis, site unspecified Dysuria Pain syndrome, chronic Chronic pain syndrome [facility] Diagnosis Right flank pain- Primary Abdominal pain, unspecified site Microscopic hematuria [facility] Diagnosis Dislocation of hip joint prosthesis, subsequent encounter- Primary 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, subsequent encounter [facility] Diagnosis Pain syndrome, chronic- Primary Chronic pain syndrome Post laminectomy syndrome Postlaminectomy syndrome, unspecified region Polyarthropathy Unspecified polyarthropathy or polyarthritis, site unspecified Sleeping difficulty Sleep disturbance, unspecified Paresthesia of saddle area: Cauda equina ruled out Fecal smearing Chronic constipation Unspecified constipation S/P laminectomy Other postprocedural status Intractable low back pain Lumbago Primary hypertension Unspecified essential hypertension MGUS (monoclonal gammopathy of unknown significance) Monoclonal paraproteinemia Essential hypertension Unspecified essential hypertension S/P revision of total hip Hip joint replacement by other means [facility] Diagnosis DDD (degenerative disc disease), lumbar- Primary Degeneration of lumbar or lumbosacral intervertebral disc Paresthesia of saddle area: Cauda equina ruled out S/P laminectomy Other postprocedural status 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 Hip joint replacement by other means [facility] Diagnosis Right flank pain Abdominal pain, unspecified site Microscopic hematuria [facility] Diagnosis Urinary frequency- Primary [facility] Diagnosis Dislocation of hip joint prosthesis, subsequent encounter- Primary 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, subsequent encounter Spinal stenosis of cervical region Spinal stenosis in cervical region Spinal stenosis of lumbar region with neurogenic claudication Spinal stenosis, lumbar region, with neurogenic claudication Myelopathy (HCC) Unspecified disease of spinal cord Urinary incontinence, unspecified type [facility] Diagnosis Primary hypertension- Primary Unspecified essential hypertension DDD (degenerative disc disease), lumbar Degeneration of lumbar or lumbosacral intervertebral disc Paresthesia of saddle area: Cauda equina ruled out Post laminectomy syndrome Postlaminectomy syndrome, unspecified region Intractable low back pain Lumbago MGUS (monoclonal gammopathy of unknown significance) Monoclonal paraproteinemia Hypogonadism in male 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 Hip joint replacement by other means Sleeping difficulty Sleep disturbance, unspecified Polyarthropathy Unspecified polyarthropathy or polyarthritis, site unspecified Encounter for immunization Need for other specified prophylactic vaccination against single bacterial disease Medication management Encounter for long-term (current) use of other medications [facility] Diagnosis Acute cystitis without hematuria- Primary Acute cystitis Cervical myelopathy (HCC) Cervical spondylosis with myelopathy Spinal stenosis of lumbar region with neurogenic claudication Spinal stenosis, lumbar region, with neurogenic claudication [facility] Diagnosis Acute cystitis without hematuria Acute cystitis Cervical myelopathy (HCC) Cervical spondylosis with myelopathy Spinal stenosis of lumbar region with neurogenic claudication Spinal stenosis, lumbar region, with neurogenic claudication [facility] Diagnosis Urinary retention- Primary Retention of urine, unspecified Hydronephrosis, unspecified hydronephrosis type Cervical myelopathy (HCC) Cervical spondylosis with myelopathy Spinal stenosis of lumbar region with neurogenic claudication Spinal stenosis, lumbar region, with neurogenic claudication [facility]* Diagnosis 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- Primary Overflow incontinence of urine Overflow incontinence Screening for genitourinary condition Screening for other and unspecified genitourinary condition Urinary retention Retention of urine, unspecified Hydronephrosis, unspecified hydronephrosis type Stage 3b chronic kidney disease (HCC) Cervical myelopathy (HCC) Cervical spondylosis with myelopathy Spinal stenosis of lumbar region with neurogenic claudication Spinal stenosis, lumbar region, with neurogenic claudication [facility] Diagnosis Patient left without being seen- Primary Surgical or other procedure not carried out because of patient's decision [facility] Diagnosis Hydronephrosis, unspecified hydronephrosis type- Primary Urinary retention Retention of urine, unspecified MUNA (acute kidney injury) (HCC) Acute kidney failure, unspecified [facility] Diagnosis 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- Primary Overflow incontinence of urine Overflow incontinence Urinary retention Retention of urine, unspecified Hydronephrosis, unspecified hydronephrosis type Stage 3b chronic kidney disease (HCC) Frailty Senility without mention of psychosis At high risk for falls Personal history of fall [facility] Diagnosis Hospital discharge follow-up- Primary Other follow-up examination Acute urinary tract infection Urinary tract infection, site not specified Acute renal failure superimposed on stage 3a chronic kidney disease, unspecified acute renal failure type (HCC) Frailty Senility without mention of psychosis At high risk for falls Personal history of fall Paresthesia of saddle area: Cauda equina ruled out DDD (degenerative disc disease), lumbar Degeneration of lumbar or lumbosacral intervertebral disc Intractable low back pain Lumbago Chronic vertigo S/P laminectomy Other postprocedural status MGUS (monoclonal gammopathy of unknown significance) Monoclonal paraproteinemia Hypogonadism in male [place] macroglobulinemia (HCC) [facility] 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- Primary Chronic vertigo DDD (degenerative disc disease), lumbar Degeneration of lumbar or lumbosacral intervertebral disc Intractable low back pain Lumbago MGUS (monoclonal gammopathy of unknown significance) Monoclonal paraproteinemia Frailty Senility without mention of psychosis Paresthesia of saddle area: Cauda equina ruled out Neurogenic claudication Spinal stenosis, lumbar region, with neurogenic claudication Periprosthetic fracture around internal prosthetic right hip joint, subsequent encounter Status post hip replacement, unspecified laterality S/P laminectomy Other postprocedural status Status post replacement of right shoulder joint [place] macroglobulinemia (HCC) [facility]roglobulin[facility] Urine retention- Primary Retention of urine, unspecified [facility] Diagnosis Urinary retention- Primary Retention of urine, unspecified 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 [facility] Diagnosis No-show for appointment- Primary [facility] Diagnosis Sleeping difficulty- Primary Sleep disturbance, unspecified Paresthesia of saddle area: Cauda equina ruled out Primary hypertension Unspecified essential hypertension Progressive focal motor weakness Muscle weakness (generalized) [facility] Diagnosis Labile hypertension- Primary Unspecified essential hypertension [facility] Diagnosis S/P laminectomy- Primary Other postprocedural status Post-op pain Other acute postoperative pain [facility] Diagnosis Abnormal urine- Primary Other nonspecific finding on examination of urine [facility] Diagnosis DDD (degenerative disc disease), lumbar- Primary Degeneration of lumbar or lumbosacral intervertebral disc MGUS (monoclonal gammopathy of unknown significance) Monoclonal paraproteinemia Paresthesia of saddle area: Cauda equina ruled out Neurogenic claudication Spinal stenosis, lumbar region, with neurogenic claudication [place]strom macroglobulinemia (HCC) Macroglobulinemia Testicular atrophy Atrophy of testis Stage 3b chronic kidney disease (HCC) 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 Dizziness Dizziness and giddiness Adjustment disorder with depressed mood Chronic pain syndrome Hepatitis C associated neuropathy (HCC) Unspecified viral hepatitis C without hepatic coma [facility] Urine retention- Primary Retention of urine, unspecified Hydronephrosis, unspecified hydronephrosis type BPH with obstruction/lower urinary tract symptoms Hypertrophy of prostate with urinary obstruction and other lower urinary tract symptoms (LUTS) [facility] Diagnosis Hydronephrosis, unspecified hydronephrosis type- Primary [facility] Diagnosis Problem with [place] catheter, initial encounter (HCC)- Primary [facility] Diagnosis Urine retention- Primary Retention of urine, unspecified [facility] Diagnosis Pre-op testing Preoperative examination, unspecified Chronic hepatitis C without hepatic coma (HCC) Chronic hepatitis C without mention of hepatic coma Primary hypertension Unspecified essential hypertension MGUS (monoclonal gammopathy of unknown significance) Monoclonal paraproteinemia Status post hip replacement, 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 Sleeping difficulty Sleep disturbance, unspecified Former smoker Personal history of tobacco use, presenting hazards to health Urine retention- Primary Retention of urine, unspecified Hydronephrosis, unspecified hydronephrosis type BPH with obstruction/lower urinary tract symptoms Hypertrophy of prostate with urinary obstruction and other lower urinary tract symptoms (LUTS) BPH with obstruction/lower urinary tract symptoms Hypertrophy of prostate with urinary obstruction and other lower urinary tract symptoms (LUTS) Urinary retention Retention of urine, unspecified [facility] Diagnosis Pre-op testing Preoperative examination, unspecified Chronic hepatitis C without hepatic coma (HCC) Chronic hepatitis C without mention of hepatic coma Primary hypertension Unspecified essential hypertension MGUS (monoclonal gammopathy of unknown significance) Monoclonal paraproteinemia Status post hip replacement, 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 Sleeping difficulty Sleep disturbance, unspecified Former smoker Personal history of tobacco use, presenting hazards to health BPH with obstruction/lower urinary tract symptoms- Primary Hypertrophy of prostate with urinary obstruction and other lower urinary tract symptoms (LUTS) Urine retention Retention of urine, unspecified Hydronephrosis, unspecified hydronephrosis type BPH with obstruction/lower urinary tract symptoms Hypertrophy of prostate with urinary obstruction and other lower urinary tract symptoms (LUTS) Urinary retention Retention of urine, unspecified [facility] Diagnosis Pre-op testing Preoperative examination, unspecified Chronic hepatitis C without hepatic coma (HCC) Chronic hepatitis C without mention of hepatic coma Primary hypertension Unspecified essential hypertension MGUS (monoclonal gammopathy of unknown significance) Monoclonal paraproteinemia Status post hip replacement, 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 Sleeping difficulty Sleep disturbance, unspecified Former smoker Personal history of tobacco use, presenting hazards to health DDD (degenerative disc disease), lumbar- Primary Degeneration of lumbar or lumbosacral intervertebral disc 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 Overflow incontinence of urine Overflow incontinence Chronic pain syndrome Primary hypertension Unspecified essential hypertension Sleeping difficulty Sleep disturbance, unspecified Chronic vertigo BPH with obstruction/lower urinary tract symptoms Hypertrophy of prostate with urinary obstruction and other lower urinary tract symptoms (LUTS) Urinary retention Retention of urine, unspecified documented in this encounter [facility]* Diagnosis Pre-op testing Preoperative examination, unspecified Chronic hepatitis C without hepatic coma (HCC) Chronic hepatitis C without mention of hepatic coma Primary hypertension Unspecified essential hypertension MGUS (monoclonal gammopathy of unknown significance) Monoclonal paraproteinemia Status post hip replacement, 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 Sleeping difficulty Sleep disturbance, unspecified Former smoker Personal history of tobacco use, presenting hazards to health Pain syndrome, chronic Chronic pain syndrome Post laminectomy syndrome Postlaminectomy syndrome, unspecified region Polyarthropathy Unspecified polyarthropathy or polyarthritis, site unspecified Sleeping difficulty Sleep disturbance, unspecified BPH with obstruction/lower urinary tract symptoms Hypertrophy of prostate with urinary obstruction and other lower urinary tract symptoms (LUTS) Urinary retention Retention of urine, unspecified [facility] Diagnosis Pre-op testing Preoperative examination, unspecified Chronic hepatitis C without hepatic coma (HCC) Chronic hepatitis C without mention of hepatic coma Primary hypertension Unspecified essential hypertension MGUS (monoclonal gammopathy of unknown significance) Monoclonal paraproteinemia Status post hip replacement, 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 Sleeping difficulty Sleep disturbance, unspecified Former smoker Personal history of tobacco use, presenting hazards to health BPH with obstruction/lower urinary tract symptoms- Primary Hypertrophy of prostate with urinary obstruction and other lower urinary tract symptoms (LUTS) [facility] Diagnosis Pre-op testing Preoperative examination, unspecified Chronic hepatitis C without hepatic coma (HCC) Chronic hepatitis C without mention of hepatic coma Primary hypertension Unspecified essential hypertension MGUS (monoclonal gammopathy of unknown significance) Monoclonal paraproteinemia Status post hip replacement, 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 Sleeping difficulty Sleep disturbance, unspecified Former smoker Personal history of tobacco use, presenting hazards to health Paresthesia of saddle area: Cauda equina ruled out- Primary Intractable low back pain Lumbago [facility] Diagnosis Pre-op testing Preoperative examination, unspecified Chronic hepatitis C without hepatic coma (HCC) Chronic hepatitis C without mention of hepatic coma Primary hypertension Unspecified essential hypertension MGUS (monoclonal gammopathy of unknown significance) Monoclonal paraproteinemia Status post hip replacement, 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 Sleeping difficulty Sleep disturbance, unspecified Former smoker Personal history of tobacco use, presenting hazards to health Closed fracture of multiple ribs of left side with routine healing, subsequent encounter [facility] Diagnosis Pre-op testing Preoperative examination, unspecified Chronic hepatitis C without hepatic coma (HCC) Chronic hepatitis C without mention of hepatic coma Primary hypertension Unspecified essential hypertension MGUS (monoclonal gammopathy of unknown significance) Monoclonal paraproteinemia Status post hip replacement, 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 Sleeping difficulty Sleep disturbance, unspecified Former smoker Personal history of tobacco use, presenting hazards to health 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 Overflow incontinence of urine Overflow incontinence [facility] Diagnosis Pre-op testing Preoperative examination, unspecified Chronic hepatitis C without hepatic coma (HCC) Chronic hepatitis C without mention of hepatic coma Primary hypertension Unspecified essential hypertension MGUS (monoclonal gammopathy of unknown significance) Monoclonal paraproteinemia Status post hip replacement, 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 Sleeping difficulty Sleep disturbance, unspecified Former smoker Personal history of tobacco use, presenting hazards to health Primary hypertension Unspecified essential hypertension Sleeping difficulty Sleep disturbance, unspecified S/P laminectomy Other postprocedural status Post-op pain Other acute postoperative pain [facility] Diagnosis Pre-op testing Preoperative examination, unspecified Chronic hepatitis C without hepatic coma (HCC) Chronic hepatitis C without mention of hepatic coma Primary hypertension Unspecified essential hypertension MGUS (monoclonal gammopathy of unknown significance) Monoclonal paraproteinemia Status post hip replacement, 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 Sleeping difficulty Sleep disturbance, unspecified Former smoker Personal history of tobacco use, presenting hazards to health Essential hypertension Unspecified essential hypertension [facility] Diagnosis Pre-op testing Preoperative examination, unspecified Chronic hepatitis C without hepatic coma (HCC) Chronic hepatitis C without mention of hepatic coma Primary hypertension Unspecified essential hypertension MGUS (monoclonal gammopathy of unknown significance) Monoclonal paraproteinemia Status post hip replacement, 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 Sleeping difficulty Sleep disturbance, unspecified Former smoker Personal history of tobacco use, presenting hazards to health 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 Overflow incontinence of urine Overflow incontinence [facility] Diagnosis Pre-op testing Preoperative examination, unspecified Chronic hepatitis C without hepatic coma (HCC) Chronic hepatitis C without mention of hepatic coma Primary hypertension Unspecified essential hypertension MGUS (monoclonal gammopathy of unknown significance) Monoclonal paraproteinemia Status post hip replacement, 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 Sleeping difficulty Sleep disturbance, unspecified Former smoker Personal history of tobacco use, presenting hazards to health Sleeping difficulty Sleep disturbance, unspecified [facility] Diagnosis Pain in joint, multiple sites Pre-op testing Preoperative examination, unspecified Chronic hepatitis C without hepatic coma (HCC) Chronic hepatitis C without mention of hepatic coma Primary hypertension Unspecified essential hypertension MGUS (monoclonal gammopathy of unknown significance) Monoclonal paraproteinemia Status post hip replacement, 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 Sleeping difficulty Sleep disturbance, unspecified Former smoker Personal history of tobacco use, presenting hazards to health [facility] Diagnosis Pre-op testing Preoperative examination, unspecified Chronic hepatitis C without hepatic coma (HCC) Chronic hepatitis C without mention of hepatic coma Primary hypertension Unspecified essential hypertension MGUS (monoclonal gammopathy of unknown significance) Monoclonal paraproteinemia Status post hip replacement, 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 Sleeping difficulty Sleep disturbance, unspecified Former smoker Personal history of tobacco use, presenting hazards to health Urine retention- Primary Retention of urine, unspecified [facility] Diagnosis Pre-op testing Preoperative examination, unspecified Chronic hepatitis C without hepatic coma (HCC) Chronic hepatitis C without mention of hepatic coma Primary hypertension Unspecified essential hypertension MGUS (monoclonal gammopathy of unknown significance) Monoclonal paraproteinemia Status post hip replacement, 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 Sleeping difficulty Sleep disturbance, unspecified Former smoker Personal history of tobacco use, presenting hazards to health 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 Overflow incontinence of urine Overflow incontinence Sleeping difficulty Sleep disturbance, unspecified Essential hypertension Unspecified essential hypertension Primary hypertension Unspecified essential hypertension [facility] Diagnosis Hip pain Pain in joint, pelvic region and thigh Chronic pain of both knees Pre-op testing Preoperative examination, unspecified Chronic hepatitis C without hepatic coma (HCC) Chronic hepatitis C without mention of hepatic coma Primary hypertension Unspecified essential hypertension MGUS (monoclonal gammopathy of unknown significance) Monoclonal paraproteinemia Status post hip replacement, 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 Sleeping difficulty Sleep disturbance, unspecified Former smoker Personal history of tobacco use, presenting hazards to health [facility] Diagnosis DDD (degenerative disc disease), lumbar Degeneration of lumbar or lumbosacral intervertebral disc Pre-op testing Preoperative examination, unspecified Chronic hepatitis C without hepatic coma (HCC) Chronic hepatitis C without mention of hepatic coma Primary hypertension Unspecified essential hypertension MGUS (monoclonal gammopathy of unknown significance) Monoclonal paraproteinemia Status post hip replacement, 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 Sleeping difficulty Sleep disturbance, unspecified Former smoker Personal history of tobacco use, presenting hazards to health [facility] Diagnosis Pre-op testing Preoperative examination, unspecified Chronic hepatitis C without hepatic coma (HCC) Chronic hepatitis C without mention of hepatic coma Primary hypertension Unspecified essential hypertension MGUS (monoclonal gammopathy of unknown significance) Monoclonal paraproteinemia Status post hip replacement, 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 Sleeping difficulty Sleep disturbance, unspecified Former smoker Personal history of tobacco use, presenting hazards to health BPH with obstruction/lower urinary tract symptoms- Primary Hypertrophy of prostate with urinary obstruction and other lower urinary tract symptoms (LUTS) Urine retention Retention of urine, unspecified documented in this encounter [facility] Plan of care note* Visit Details Visit Type -SN SOC Discipline -[facility] Problems Problem Description Start Date Status Goals Interve ntions Medication Education Disciplines: Skilled Services 07/28/2024 Active 1 goal linked to scheduled/documen josseline intervention 1 goal intervention scheduled/document ed in this visit Sepsis Disciplines: Skilled Services 07/28/2024 Active 1 goal linked to scheduled/documen josseline intervention 1 goal intervention scheduled/document ed in this visit Risk for skin breakdown Disciplines: Skilled Services 07/28/2024 Active 1 goal linked to scheduled/documen josseline intervention 1 goal intervention scheduled/document ed in this visit Physician Specific Parameters Disciplines: Skilled Services 07/28/2024 Active 1 goal linked to scheduled/documen josseline intervention 1 goal intervention scheduled/document ed in this visit Risk for Falls Disciplines: Skilled Services 07/28/2024 Active 1 goal linked to scheduled/documen josseline intervention 1 goal intervention scheduled/document ed in this visit Pain Disciplines: Skilled Services 07/28/2024 Active 1 goal linked to scheduled/documen josseline intervention 1 goal intervention scheduled/document ed in this visit Nutrition/Hydration Disciplines: Skilled Services 07/28/2024 Active 1 goal linked to scheduled/documen josseline intervention 1 goal intervention scheduled/document ed in this visit High Risk Medications Disciplines: Skilled Services 07/28/2024 Active 1 goal linked to scheduled/documen josseline intervention 1 goal intervention scheduled/document ed in this visit Discharge Disciplines: Skilled Services 07/28/2024 Active 1 goal linked to scheduled/documen josseline intervention 2 goal interventions scheduled/document ed in this visit Advance Directives Disciplines: Skilled Services 07/28/2024 Active 1 goal linked to scheduled/documen josseline intervention 1 goal intervention scheduled/document ed in this visit SN Integumentary/Wound s Disciplines: SN 07/28/2024 Active 1 goal linked to scheduled/documen josseline intervention 2 goal interventions scheduled/document ed in this visit SN Learning Assessment Disciplines: SN 07/28/2024 Active 1 goal linked to scheduled/documen josseline intervention 1 goal intervention scheduled/document ed in this visit SN Genitourinary disease process Disciplines: SN 07/28/2024 Active 1 goal linked to scheduled/documen josseline intervention 1 goal intervention scheduled/document ed in this visit SN Gastrointestinal Disciplines: SN 07/28/2024 Active 1 goal linked to scheduled/documen josseline intervention 1 goal intervention scheduled/document ed in this visit Goals Goal Associated Problem Outcome Goal Met? Visit Notes Patient/caregiver will demonstrate ability to obtain, store, identify and administer ordered medications, keep accurate medication list in home, and adhere to medication schedule Description: Patient/caregiver will demonstrate ability to obtain, store, identify and administer ordered medications, keep accurate medication list in home, and adhere to medication schedule by 09/25/24. Medication Education No Patient/caregiver will be able to identify and report symptoms of sepsis Description: Patient/caregiver will be able to identify signs/symptoms of sepsis infection and will verbalize actions to take if suspected by 09/25/24. Sepsis No Manage risk for skin breakdown Description: Patient/caregiver will verbalize and demonstrate understanding of the risks and measures to be taken to monitor and prevent skin breakdown by 09/25/24. Risk for skin breakdown No Patient to maintain parameters within physician-specified ranges throughout certification period Physician Specific Parameters No Manage Risk for falls Description: Patient/caregiver will verbalize knowledge of individualized fall prevention strategies by 09/25/24. Risk for Falls No Manage Pain Description: Patient/caregiver will verbalize knowledge and understanding of appropriate techniques to control pain, including pain medication and non-pharmacological techniques. Patient will verbalize or demonstrate an acceptable level of pain as evidenced by a pain score of 2/10 and improvement in ability to perform activities of daily living to be achieved by 09/25/24. Pain No Manage Nutrition/Hydration Description: Patient/caregiver will verbalize/demonstrate knowledge of prescribed diet and/or healthy nutrition to be achieved by 09/25/24. Nutrition/Hydration No Patient/caregiver will teach back high risk medication side effect and precaution education Description: STG Patient/caregiver will verbalize understanding of high risk medication side effects and precautions to be achieved by 09/21/24. LTG Patient/caregiver will continue to verbalize understanding of high risk medication side effects and precautions throughout certification period. High Risk Medications No Manage discharge planning Description: Patient/caregiver will verbalize understanding of ongoing discharge plan provided related to disease management, arrangements for outpatient and/or community services, obtaining medications, supplies, and DME, as needed throughout certification period. Discharge No Patient/caregiver will make healthcare providers aware of and any changes to Advance Directives throughout certification period Advance Directives No Patient/Caregiver will have improved healing and be free of signs and symptoms of complications Description: Patient/caregiver will verbalize management strategies to promote wound healing & prevent complications as evidenced by improved healing & no complications by 09/15/24. SN Integumentary/Wounds No Demonstrate understanding of education Description: Patient and/or caregiver will verbalize understanding of educational instruction provided throughout certification period. SN Learning Assessment No Patient/Caregiver will verbalize understanding and demonstrate improved management of genitourinary disease/condition. Description: Patient/Caregiver will state understanding of genitourinary disease/condition and be able to teach back management strategies by 09/15/24. SN Genitourinary disease process No Improved management of GI disease/condition Description: Patient/Caregiver will demonstrate understanding of GI education as evidenced by improved management of gastrointestinal disease/condition by 09/15/24. SN Gastrointestinal No Interventions Intervention Associated Problem/Goal Status Variance Visit Notes Medication Education Description: Evaluate/instruct patient/caregiver on obtaining, storing, identifying and administering ordered medications as well as keeping accurate medication list in the home and adhereing to medication schedule Problem:Medication Education Goal:Patient/caregiver will demonstrate ability to obtain, store, identify and administer ordered medications, keep accurate medication list in home, and adhere to medication schedule Completed Patient instructed on importance of keeping accurate medication list in home, need to take up-to-date medication list to all medical provider appointments and adhering to medication schedule. Risk of Sepsis Description: Patient is at risk for sepsis. Monitor closely for s/s of sepsis. Problem:Sepsis Goal:Patient/caregiver will be able to identify and report symptoms of sepsis Completed Instruct on the risks and measures to be taken to prevent skin breakdown Description: Patient's Kwame Score is: 12. A Kwame score <= to 18 indicates risk for skin breakdown. Problem:Risk for skin breakdown Goal:Manage risk for skin breakdown Completed patient instructed on maintaining skin integrity including: The need for every 1-2 hour turns, position changes, and maintaining activity as tolerated, Reducing risk of friction and shear, including use of draw sheet as appropriate and Inspecting bony prominences Evaluation for pressure reduction surfaces completed for wheelchair. SPO2 Description: Notify Dr. Ignacio GOEL if pulse ox is <92% at rest. Problem:Physician Specific Parameters Goal:Patient to maintain parameters within physician-specified ranges throughout certification period Completed Instruct on individual fall risk factors and strategies to prevent falls and injuries caused by falls. Problem:Risk for Falls Goal:Manage Risk for falls Completed SN: Patient instructed on Managing Cognitive Impairment/Depression: Recommended use of visual cues/reminders for safety Managing Impaired Functional Mobility: Use assistive device(s): wheelchair Managing Pain: Recommended pain medication schedule and management of side effects to minimize fall risk Instruct on pain and instruct on strategies to control pain Problem:Pain Goal:Manage Pain Completed patient instructed on techniques to control pain including Pharmacological measures and Non-Pharmacological measures; rest, mobility/therapeutic exercise and distraction. Define patient s appetite/hydration status and implement strategies to improve compliance with prescribed diet and/or healthy nutrition. Problem:Nutrition/Hydr ation Goal:Manage Nutrition/Hydration Completed instructed patient on implementing strategies to comply with healthy nutrition and adequate hydration Antibiotic- educated on high risk medication Problem:High Risk Medications Goal:Patient/caregiver will teach back high risk medication side effect and precaution education Completed patient educated on taking medication(s) as prescribed by provider. Do not stop medication or alter doses without speaking with your provider. Discuss medication effectiveness or side effect concerns with your provider and home care team. Take the full dispensed amount even if you start feeling better, as bacteria can become resistant to antibiotic treatment if you do not finish your prescription. Common side effects are upset stomach and diarrhea. Take your antibiotics with food unless otherwise indicated to help with indigestion. Taking an krfw-opy-opsrpac probiotic or eating yogurt with live and active cultures three times a day can help prevent antibiotic-associated diarrhea. Call your provider immediately if you develop rashes or hives as this could be a delayed allergic reaction. Seek emergency treatment if you develop severe allergic reaction symptoms such as mouth or tongue swelling. Instruct on ongoing discharge plan Problem:Discharge Goal:Manage discharge planning Completed Ongoing Discharge plan: Discharge plan discussed with patient including frequency and duration for home SN and plan for transition to: live at home with community assistance. Instruct on importance of follow-up appts and continued monitoring with medical provider &/or chronic care clinic Problem:Discharge Goal:Manage discharge planning Completed Education provided on importance of compliance with follow-up appointment(s). Recommendations: referral made for [employer] to assist with transportation and patient/caregiver to follow up with scheduling appointment(s) for post-acute/primary care provider/chronic care clinic Determine patient's Advance Directive Status Description: Patient does have advance directives. Patient's Advance Directives determined to be available in EMR Healthcare DPOA and Living Will. Problem:Advance Directives Goal:Patient/caregiver will make healthcare providers aware of and any changes to Advance Directives throughout certification period Completed Discussed Advance Directives with Patient and/or Caregiver. Referred patient to Home Care handbook for further information on Healthcare DPOA & Living Will. Wound Care: Perform wound care (1) Description: Wound Care Order: Wound location: RLE Wound type (etiology): Traumatic Order: Cleanse with soap and water, leave [place] Frequency: daily Wound care to be completed by patient except for scheduled SN wound care visits. Measure wound/incision at least weekly. Okay to substitute comparable products from home care formulary. Problem:SN Integumentary/Wounds Goal:Patient/Caregiver will have improved healing and be free of signs and symptoms of complications Completed Completed by SN. Patient did tolerate well. Instruct patient/caregiver healing process and management measures to promote healing and avoid complications Problem:SN Integumentary/Wounds Goal:Patient/Caregiver will have improved healing and be free of signs and symptoms of complications Completed patient instructed on the following: healing process, signs and symptoms of infection and importance of good nutrition. Instruct and educate on knowledge deficits Problem:SN Learning Assessment Goal:Demonstrate understanding of education Completed patient verbalize and/or demonstrate understanding of nursing education completed today. Education methods include: verbal cues. Further education required to improve knowledge and compliance with depression/anxiety care management, fall prevention/home safety strategies, gastrointestinal care management, genitourinary care management, incision/wound care management, medication management, nutrition and pain management. Catheter- Instruct Patient/Caregiver on use and management of a urinary catheter Description: Urinary catheter is a hancock catheter. Problem:SN Genitourinary disease process Goal:Patient/Caregiver will verbalize understanding and demonstrate improved management of genitourinary disease/condition. Completed patient instructed on catheter management including: emptying and disposing of urine from the bag, positioning the catheter and urinary bag and use of securement device. Incontinence: Instruct Patient/Caregiver on measures to manage bowel incontinence Problem:SN Gastrointestinal Goal:Improved management of GI disease/condition Completed patient instructed on the following measures to manage bowel incontinence: perineal skin care, use of moisture barrier and use of incontinence pads/briefs. [facility] Visit Details Visit Type -PT EVAL Discipline -Physical Therapy Problems Problem Description Start Date Status Goals Interve ntions Sepsis Disciplines: Skilled Services 07/28/2024 Active 1 goal linked to scheduled/documente d intervention 1 goal intervention scheduled/documente d in this visit PT Referral Disciplines: Skilled Services 07/28/2024 Active 1 goal linked to scheduled/documente d intervention 1 goal intervention scheduled/documente d in this visit Physician Specific Parameters Disciplines: Skilled Services 07/28/2024 Active 1 goal linked to scheduled/documente d intervention 1 goal intervention scheduled/documente d in this visit Risk for Falls Disciplines: Skilled Services 07/28/2024 Active 1 goal linked to scheduled/documente d intervention 1 goal intervention scheduled/documente d in this visit Discharge Disciplines: Skilled Services 07/28/2024 Active 1 goal linked to scheduled/documente d intervention 1 goal intervention scheduled/documente d in this visit PT Impaired mobility Disciplines: PT 07/29/2024 Active 1 goal linked to scheduled/documente d intervention 1 goal intervention scheduled/documente d in this visit PT Learning Assessment Disciplines: PT 07/29/2024 Active 1 goal linked to scheduled/documente d intervention 1 goal intervention scheduled/documente d in this visit Goals Goal Associated Problem Outcome Goal Met? Visit Notes Patient/caregiver will be able to identify and report symptoms of sepsis Description: Patient/caregiver will be able to identify signs/symptoms of sepsis infection and will verbalize actions to take if suspected by 09/25/24. Sepsis No Patient will be referred to additional discipline as needed PT Referral No Patient to maintain parameters within physician-specified ranges throughout certification period Physician Specific Parameters No Manage Risk for falls Description: Patient/caregiver will verbalize knowledge of individualized fall prevention strategies by 09/25/24. Risk for Falls No Manage discharge planning Description: Patient/caregiver will verbalize understanding of ongoing discharge plan provided related to disease management, arrangements for outpatient and/or community services, obtaining medications, supplies, and DME, as needed throughout certification period. Discharge No Improved Transfers Description: STG: Patient will demonstrate safe transfers to/from bed and wheelchair independently, to be achieved by 08/12/24. PT Impaired mobility No Demonstrate understanding of education Description: Patient and/or caregiver will understand educational instruction to be achieved by 09/25/24. PT Learning Assessment No Interventions Intervention Associated Problem/Goal Status Variance Visit Notes Risk of Sepsis Description: Patient is at risk for sepsis. Monitor closely for s/s of sepsis. Problem:Sepsis Goal:Patient/caregive r will be able to identify and report symptoms of sepsis Completed PT evaluation and treatment Description: Evaluate and treat for the assessment of functional deficits and establishment of appropriate interventions and education, including recommendations for functional mobility training, balance training for fall reduction, and strengthening. Problem:PT Referral Goal:Patient will be referred to additional discipline as needed Completed SPO2 Description: Notify Dr. Ignacio GOEL if pulse ox is <92% at rest. Problem:Physician Specific Parameters Goal:Patient to maintain parameters within physician-specified ranges throughout certification period Completed Instruct on individual fall risk factors and strategies to prevent falls and injuries caused by falls. Problem:Risk for Falls Goal:Manage Risk for falls Completed PT: Patient instructed on Managing Impaired Functional Mobility: Use assistive device(s): wheelchair and Caregiver to provide assist with: Ambulation Instruct on ongoing discharge plan Problem:Discharge Goal:Manage discharge planning Completed Ongoing Discharge plan: Discharge plan discussed with patient including frequency and duration for home PT and plan for transition to: live independently at home without ongoing services. Physical Therapy Transfer Training Problem:PT Impaired mobility Goal:Improved Transfers Completed Transfer training and instruction to patient on safe transfers to and from bed and wheelchair with supervision and verbal cues to make sure the w/c locks are on prior to initiating the transfer. Instruct and educate on knowledge deficits Problem:PT Learning Assessment Goal:Demonstrate understanding of education Completed patient verbalize and/or demonstrate understanding of physical therapy education including pain management, fall prevention strategies and functional activity. Education methods include: verbal cues. Further education required to improve knowledge and compliance with pain management, fall prevention strategies, home safety, integumentary and incision/wound care management, functional activity and home exercise program. [facility] Visit Details Visit Type -OT EVAL Discipline -Occupational Therapy Problems Problem Description Start Date Status Goals Interve ntions Medication Education Disciplines: Skilled Services 07/28/2024 Active 1 goal linked to scheduled/documen josseline intervention 1 goal intervention scheduled/document ed in this visit Sepsis Disciplines: Skilled Services 07/28/2024 Active 1 goal linked to scheduled/documen josseline intervention 1 goal intervention scheduled/document ed in this visit OT Referral Disciplines: Skilled Services 07/28/2024 Resolved on 07/31/2024 1 goal linked to scheduled/documen josseline intervention 1 goal intervention scheduled/document ed in this visit Physician Specific Parameters Disciplines: Skilled Services 07/28/2024 Active 1 goal linked to scheduled/documen josseline intervention 1 goal intervention scheduled/document ed in this visit Pain Disciplines: Skilled Services 07/28/2024 Active 1 goal linked to scheduled/documen josseline intervention 1 goal intervention scheduled/document ed in this visit Discharge Disciplines: Skilled Services 07/28/2024 Active 1 goal linked to scheduled/documen josseline intervention 1 goal intervention scheduled/document ed in this visit OT Learning Assessment Disciplines: OT 07/31/2024 Active 1 goal linked to scheduled/documen josseline intervention 1 goal intervention scheduled/document ed in this visit OT Functional Transfers Disciplines: OT 07/31/2024 Active 1 goal linked to scheduled/documen josseline intervention 1 goal intervention scheduled/document ed in this visit Goals Goal Associated Problem Outcome Goal Met? Visit Notes Patient/caregiver will demonstrate ability to obtain, store, identify and administer ordered medications, keep accurate medication list in home, and adhere to medication schedule Description: Patient/caregiver will demonstrate ability to obtain, store, identify and administer ordered medications, keep accurate medication list in home, and adhere to medication schedule by 09/25/24. Medication Education No Patient/caregiver will be able to identify and report symptoms of sepsis Description: Patient/caregiver will be able to identify signs/symptoms of sepsis infection and will verbalize actions to take if suspected by 09/25/24. Sepsis No Patient will be referred to additional discipline as needed OT Referral Completed Yes Patient to maintain parameters within physician-specified ranges throughout certification period Physician Specific Parameters No Manage Pain Description: Patient/caregiver will verbalize knowledge and understanding of appropriate techniques to control pain, including pain medication and non-pharmacological techniques. Patient will verbalize or demonstrate an acceptable level of pain as evidenced by a pain score of 2/10 and improvement in ability to perform activities of daily living to be achieved by 09/25/24. Pain No Manage discharge planning Description: Patient/caregiver will verbalize understanding of ongoing discharge plan provided related to disease management, arrangements for outpatient and/or community services, obtaining medications, supplies, and DME, as needed throughout certification period. Discharge No Demonstrate understanding of education Description: Patient and/or caregiver will understand educational instruction to be achieved by 08/26/24. OT Learning Assessment No Improved Functional Transfers Description: patient will demonstrate safe transfers to/from toilet and shower/tub with independent assistance and no verbal cues with use of DME to be achieved by 08/26/24. OT Functional Transfers No Interventions Intervention Associated Problem/Goal Status Variance Visit Notes Medication Education Description: Evaluate/instruct patient/caregiver on obtaining, storing, identifying and administering ordered medications as well as keeping accurate medication list in the home and adhereing to medication schedule Problem:Medication Education Goal:Patient/caregive r will demonstrate ability to obtain, store, identify and administer ordered medications, keep accurate medication list in home, and adhere to medication schedule Completed Patient instructed on importance of keeping accurate medication list in home and adhering to medication schedule. Risk of Sepsis Description: Patient is at risk for sepsis. Monitor closely for s/s of sepsis. Problem:Sepsis Goal:Patient/caregive r will be able to identify and report symptoms of sepsis Completed OT evaluation and treatment Description: Evaluate and treat for the assessment of functional deficits and establishment of appropriate interventions and education to address: I/ADL training, functional transfers, DME/adaptive equipment recommendations, safety awareness, energy conservation and home safety and falls prevention recommendations. Problem:OT Referral Goal:Patient will be referred to additional discipline as needed Completed SPO2 Description: Notify Dr. Ignacio GOEL if pulse ox is <92% at rest. Problem:Physician Specific Parameters Goal:Patient to maintain parameters within physician-specified ranges throughout certification period Completed Instruct on pain and instruct on strategies to control pain Problem:Pain Goal:Manage Pain Completed patient instructed on techniques to control pain including Non-Pharmacological measures; rest. Instruct on ongoing discharge plan Problem:Discharge Goal:Manage discharge planning Completed Ongoing Discharge plan: Discharge plan discussed with patient including frequency and duration for home OT and plan for transition to: live independently at home without ongoing services. Instruct and educate on knowledge deficits Problem:OT Learning Assessment Goal:Demonstrate understanding of education Completed Education methods include: verbal cues, tactile cues and visual cues. Patient/Caregiver require further education to improve knowledge and compliance with fall prevention strategies, pain management, home safety, infection control precautions, functional adl/iadl activity, functional transfers and discharge planning. Transfer Training Problem:OT Functional Transfers Goal:Improved Functional Transfers Completed Instruct patient on safe transfers and proper techniques including slow positional changes to perform to and from toilet and shower/tub with CGA assistance and tactile and visual cues for safety. documented in this encounter [facility] Plan of care note* Visit Details Visit Type -SN ROUTINE Discipline -[facility] Problems Problem Description Start Date Status Goals Interve ntions Medication Education Disciplines: Skilled Services 07/28/2024 Active 1 goal linked to scheduled/documen josseline intervention 1 goal intervention scheduled/document ed in this visit Sepsis Disciplines: Skilled Services 07/28/2024 Active 1 goal linked to scheduled/documen josseline intervention 1 goal intervention scheduled/document ed in this visit Risk for skin breakdown Disciplines: Skilled Services 07/28/2024 Active 1 goal linked to scheduled/documen josseline intervention 1 goal intervention scheduled/document ed in this visit Physician Specific Parameters Disciplines: Skilled Services 07/28/2024 Active 1 goal linked to scheduled/documen josseline intervention 1 goal intervention scheduled/document ed in this visit Risk for Falls Disciplines: Skilled Services 07/28/2024 Active 1 goal linked to scheduled/documen josseline intervention 1 goal intervention scheduled/document ed in this visit Pain Disciplines: Skilled Services 07/28/2024 Active 1 goal linked to scheduled/documen josseline intervention 1 goal intervention scheduled/document ed in this visit Nutrition/Hydration Disciplines: Skilled Services 07/28/2024 Active 1 goal linked to scheduled/documen josseline intervention 1 goal intervention scheduled/document ed in this visit High Risk Medications Disciplines: Skilled Services 07/28/2024 Active 1 goal linked to scheduled/documen josseline intervention 1 goal intervention scheduled/document ed in this visit Discharge Disciplines: Skilled Services 07/28/2024 Active 1 goal linked to scheduled/documen josseline intervention 2 goal interventions scheduled/document ed in this visit SN Integumentary/Wound s Disciplines: 07/28/2024 Active 1 goal linked to scheduled/documen josseline intervention 2 goal interventions scheduled/document ed in this visit SN Learning Assessment Disciplines: SN 07/28/2024 Active 1 goal linked to scheduled/documen josseline intervention 1 goal intervention scheduled/document ed in this visit SN Genitourinary disease process Disciplines: SN 07/28/2024 Active 1 goal linked to scheduled/documen josseline intervention 1 goal intervention scheduled/document ed in this visit SN Gastrointestinal Disciplines: 07/28/2024 Active 1 goal linked to scheduled/documen josseline intervention 1 goal intervention scheduled/document ed in this visit Goals Goal Associated Problem Outcome Goal Met? Visit Notes Patient/caregiver will demonstrate ability to obtain, store, identify and administer ordered medications, keep accurate medication list in home, and adhere to medication schedule Description: Patient/caregiver will demonstrate ability to obtain, store, identify and administer ordered medications, keep accurate medication list in home, and adhere to medication schedule by 09/25/24. Medication Education No Patient/caregiver will be able to identify and report symptoms of sepsis Description: Patient/caregiver will be able to identify signs/symptoms of sepsis infection and will verbalize actions to take if suspected by 09/25/24. Sepsis No Manage risk for skin breakdown Description: Patient/caregiver will verbalize and demonstrate understanding of the risks and measures to be taken to monitor and prevent skin breakdown by 09/25/24. Risk for skin breakdown No Patient to maintain parameters within physician-specified ranges throughout certification period Physician Specific Parameters No Manage Risk for falls Description: Patient/caregiver will verbalize knowledge of individualized fall prevention strategies by 09/25/24. Risk for Falls No Manage Pain Description: Patient/caregiver will verbalize knowledge and understanding of appropriate techniques to control pain, including pain medication and non-pharmacological techniques. Patient will verbalize or demonstrate an acceptable level of pain as evidenced by a pain score of 2/10 and improvement in ability to perform activities of daily living to be achieved by 09/25/24. Pain No Manage Nutrition/Hydration Description: Patient/caregiver will verbalize/demonstrate knowledge of prescribed diet and/or healthy nutrition to be achieved by 09/25/24. Nutrition/Hydration No Patient/caregiver will teach back high risk medication side effect and precaution education Description: STG Patient/caregiver will verbalize understanding of high risk medication side effects and precautions to be achieved by 09/21/24. LTG Patient/caregiver will continue to verbalize understanding of high risk medication side effects and precautions throughout certification period. High Risk Medications No Manage discharge planning Description: Patient/caregiver will verbalize understanding of ongoing discharge plan provided related to disease management, arrangements for outpatient and/or community services, obtaining medications, supplies, and DME, as needed throughout certification period. Discharge No Patient/Caregiver will have improved healing and be free of signs and symptoms of complications Description: Patient/caregiver will verbalize management strategies to promote wound healing & prevent complications as evidenced by improved healing & no complications by 09/15/24. SN Integumentary/Wounds No Demonstrate understanding of education Description: Patient and/or caregiver will verbalize understanding of educational instruction provided throughout certification period. SN Learning Assessment No Patient/Caregiver will verbalize understanding and demonstrate improved management of genitourinary disease/condition. Description: Patient/Caregiver will state understanding of genitourinary disease/condition and be able to teach back management strategies by 09/15/24. SN Genitourinary disease process No Improved management of GI disease/condition Description: Patient/Caregiver will demonstrate understanding of GI education as evidenced by improved management of gastrointestinal disease/condition by 09/15/24. SN Gastrointestinal No Interventions Intervention Associated Problem/Goal Status Variance Visit Notes Medication Education Description: Evaluate/instruct patient/caregiver on obtaining, storing, identifying and administering ordered medications as well as keeping accurate medication list in the home and adhereing to medication schedule Problem:Medication Education Goal:Patient/caregiver will demonstrate ability to obtain, store, identify and administer ordered medications, keep accurate medication list in home, and adhere to medication schedule Completed Patient instructed on importance of keeping accurate medication list in home, need to take up-to-date medication list to all medical provider appointments and adhering to medication schedule. Risk of Sepsis Description: Patient is at risk for sepsis. Monitor closely for s/s of sepsis. Problem:Sepsis Goal:Patient/caregiver will be able to identify and report symptoms of sepsis Completed Instruct on the risks and measures to be taken to prevent skin breakdown Description: Patient's Kwame Score is: 12. A Kwame score <= to 18 indicates risk for skin breakdown. Problem:Risk for skin breakdown Goal:Manage risk for skin breakdown Completed patient instructed on maintaining skin integrity including: Inspecting bony prominences, Routine skin care and Notifying [facility] clinician of changes to skin integrity Evaluation for pressure reduction surfaces completed for wheelchair and recommendations made for offloading. SPO2 Description: Notify Dr. Ignacio GOEL if pulse ox is <92% at rest. Problem:Physician Specific Parameters Goal:Patient to maintain parameters within physician-specified ranges throughout certification period Completed Instruct on individual fall risk factors and strategies to prevent falls and injuries caused by falls. Problem:Risk for Falls Goal:Manage Risk for falls Completed SN: Patient instructed on Eliminating Environmental Hazards: Keep pathways clear, Remove unsafe rugs, Move furniture from pathways, Keep rooms and walkways well lit, Install hand rails/grab bars, Wear supportive shoes or non-skid socks and Keep frequently used items within reach Instruct on pain and instruct on strategies to control pain Problem:Pain Goal:Manage Pain Completed patient instructed on techniques to control pain including Non-Pharmacological measures; rest, positioning/elevation and mobility/therapeutic exercise. Define patient s appetite/hydration status and implement strategies to improve compliance with prescribed diet and/or healthy nutrition. Problem:Nutrition/Hydra tion Goal:Manage Nutrition/Hydration Completed reinforced patient on implementing strategies to comply with prescribed diet, healthy nutrition and adequate hydration Antibiotic- educated on high risk medication Problem:High Risk Medications Goal:Patient/caregiver will teach back high risk medication side effect and precaution education Completed patient educated on taking medication(s) as prescribed by provider. Do not stop medication or alter doses without speaking with your provider. Discuss medication effectiveness or side effect concerns with your provider and home care team. Take the full dispensed amount even if you start feeling better, as bacteria can become resistant to antibiotic treatment if you do not finish your prescription. Common side effects are upset stomach and diarrhea. Take your antibiotics with food unless otherwise indicated to help with indigestion. Taking an [id number] probiotic or eating yogurt with live and active cultures three times a day can help prevent antibiotic-associated diarrhea. Call your provider immediately if you develop rashes or hives as this could be a delayed allergic reaction. Seek emergency treatment if you develop severe allergic reaction symptoms such as mouth or tongue swelling. Instruct on ongoing discharge plan Problem:Discharge Goal:Manage discharge planning Completed Ongoing Discharge plan: Discharge plan discussed with patient including frequency and duration for home SN and plan for transition to: live at home with community assistance. Instruct on importance of follow-up appts and continued monitoring with medical provider &/or chronic care clinic Problem:Discharge Goal:Manage discharge planning Completed Education provided on importance of compliance with follow-up appointment(s). Recommendations: patient/caregiver to follow up with scheduling appointment(s) for post-acute/primary care provider/chronic care clinic Wound Care: Perform wound care (1) Description: Wound Care Order: Wound location: RLE Wound type (etiology): Traumatic Order: Cleanse with soap and water, leave [place] Frequency: daily Wound care to be completed by patient except for scheduled SN wound care visits. Measure wound/incision at least weekly. Okay to substitute comparable products from home care formulary. Problem:SN Integumentary/Wounds Goal:Patient/Caregiver will have improved healing and be free of signs and symptoms of complications Completed Completed by SN. Patient did tolerate well. Instruct patient/caregiver healing process and management measures to promote healing and avoid complications Problem:SN Integumentary/Wounds Goal:Patient/Caregiver will have improved healing and be free of signs and symptoms of complications Completed patient instructed on the following: healing process, signs and symptoms of infection and importance of good nutrition. Instruct and educate on knowledge deficits Problem:SN Learning Assessment Goal:Demonstrate understanding of education Completed patient verbalize and/or demonstrate understanding of nursing education completed today. Education methods include: verbal cues, tactile cues, written instructions, visual cues and teach back. Further education required to improve knowledge and compliance with depression/anxiety care management, fall prevention/home safety strategies, genitourinary care management, medication management and nutrition. Catheter- Instruct Patient/Caregiver on use and management of a urinary catheter Description: Urinary catheter is a hancock catheter. Problem:SN Genitourinary disease process Goal:Patient/Caregiver will verbalize understanding and demonstrate improved management of genitourinary disease/condition. Completed patient instructed on catheter management including: bag change protocol. Incontinence: Instruct Patient/Caregiver on measures to manage bowel incontinence Problem:SN Gastrointestinal Goal:Improved management of GI disease/condition Completed patient instructed on the following measures to manage bowel incontinence: use of incontinence pads/briefs. 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 Discipline -Physical Therapy Problems Problem Description Start Date Status Goals Interve ntions Sepsis Disciplines: Skilled Services 07/28/2024 Active 1 goal linked to scheduled/document ed intervention 1 goal intervention scheduled/document ed in this visit Risk for skin breakdown Disciplines: Skilled Services 07/28/2024 Active 1 goal linked to scheduled/document ed intervention 1 goal intervention scheduled/document ed in this visit Physician Specific Parameters Disciplines: Skilled Services 07/28/2024 Active 1 goal linked to scheduled/document ed intervention 1 goal intervention scheduled/document ed in this visit Pain Disciplines: Skilled Services 07/28/2024 Active 1 goal linked to scheduled/document ed intervention 1 goal intervention scheduled/document ed in this visit PT Impaired muscle performance and/or ROM Disciplines: PT 07/29/2024 Active 1 goal linked to scheduled/document ed intervention 1 goal intervention scheduled/document ed in this visit PT Impaired mobility Disciplines: PT 07/29/2024 Active 1 goal linked to scheduled/document ed intervention 1 goal intervention scheduled/document ed in this visit PT Impaired gait Disciplines: PT 07/29/2024 Active 1 goal linked to scheduled/document ed intervention 1 goal intervention scheduled/document ed in this visit PT Impaired balance Disciplines: PT 07/29/2024 Active 1 goal linked to scheduled/document ed intervention 1 goal intervention scheduled/document ed in this visit PT Learning Assessment Disciplines: PT 07/29/2024 Active 1 goal linked to scheduled/document ed intervention 1 goal intervention scheduled/document ed in this visit Goals Goal Associated Problem Outcome Goal Met? Visit Notes Patient/caregiver will be able to identify and report symptoms of sepsis Description: Patient/caregiver will be able to identify signs/symptoms of sepsis infection and will verbalize actions to take if suspected by 09/25/24. Sepsis No Manage risk for skin breakdown Description: Patient/caregiver will verbalize and demonstrate understanding of the risks and measures to be taken to monitor and prevent skin breakdown by 09/25/24. Risk for skin breakdown No Patient to maintain parameters within physician-specified ranges throughout certification period Physician Specific Parameters No Manage Pain Description: Patient/caregiver will verbalize knowledge and understanding of appropriate techniques to control pain, including pain medication and non-pharmacological techniques. Patient will verbalize or demonstrate an acceptable level of pain as evidenced by a pain score of 2/10 and improvement in ability to perform activities of daily living to be achieved by 09/25/24. Pain No Improved Muscle Performance and/or ROM Description: LTG: Patient will demonstrate improved muscle performance to meet functional goals as evidenced by improved 30 second chair rise score to 5, to be achieved by 08/26/24. LTG: Patient and/or caregiver will verbalize/demonstrate independence with home exercise program, to improve functional mobility, to be achieved by 08/26/24. PT Impaired muscle performance and/or ROM No Improved Transfers Description: STG: Patient will demonstrate safe transfers to/from bed and wheelchair independently, to be achieved by 08/12/24. PT Impaired mobility No Improved Gait Description: STG: Patient will demonstrate improved gait ability as evidenced by ambulation 80 feet with front wheeled walker with supervision,, to be achieved by 08/12/24 LTG: Patient will demonstrate improved gait ability as evidenced by ambulation 125 feet with front wheeled walker with supervision, , to be achieved by 08/26/24. PT Impaired gait No Improved Balance Description: LTG: Patient will demonstrate improved standing balance to meet functional goals as evidenced by patient reporting no falls to be achieved by 08/26/24. PT Impaired balance No Demonstrate understanding of education Description: Patient and/or caregiver will understand educational instruction to be achieved by 09/25/24. PT Learning Assessment No Interventions Intervention Associated Problem/Goal Status Variance Visit Notes Risk of Sepsis Description: Patient is at risk for sepsis. Monitor closely for s/s of sepsis. Problem:Sepsis Goal:Patient/caregi coco will be able to identify and report symptoms of sepsis Completed Instruct on the risks and measures to be taken to prevent skin breakdown Description: Patient's Kwame Score is: 12. A Kwame score <= to 18 indicates risk for skin breakdown. Problem:Risk for skin breakdown Goal:Manage risk for skin breakdown Completed patient instructed on maintaining skin integrity including: The need for every 1-2 hour turns, position changes, and maintaining activity as tolerated SPO2 Description: Notify Dr. Ignacio GOEL if pulse ox is <92% at rest. Problem:Physician Specific Parameters Goal:Patient to maintain parameters within physician-specified ranges throughout certification period Completed Instruct on pain and instruct on strategies to control pain Problem:Pain Goal:Manage Pain Completed patient instructed on techniques to control pain including Pharmacological measures and Non-Pharmacological measures; rest and positioning/elevation . Physical Therapy Therapeutic Exercises Problem:PT Impaired muscle performance and/or ROM Goal:Improved Muscle Performance and/or ROM Completed patient instructed on strengthening exercises including seated faq, hip flexion and abd, heel toe raises x's 10 each, supine quad sets, heel slides and slr x's 10 with verbal, visual and written cues for form and hold times. patient instructed to perform home exercise program twice a day which included above ex. Physical Therapy Transfer Training Problem:PT Impaired mobility Goal:Improved Transfers Completed Transfer training and instruction to patient on safe transfers to and from bed and wheelchair with supervision and verbal cues for safety. Physical Therapy Gait Training Problem:PT Impaired gait Goal:Improved Gait Other (specify reason) Patient too dizzy today Physical Therapy Balance Training Problem:PT Impaired balance Goal:Improved Balance Completed Developed, implemented, and instructed patient on standing balance exercises including static standing w/ww x's 25sec. EOB sitting x's 3min. Instruct and educate on knowledge deficits Problem:PT Learning Assessment Goal:Demonstrate understanding of education Completed patient verbalize and/or demonstrate understanding of physical therapy education including orthopedic condition management and home exercise program. Education methods include: verbal cues, written instructions and visual cues. Further education required to improve knowledge and compliance with home exercise program. [facility] Visit Details Visit Type -AIRCRAFT STRUCTURAL REPAIRER EVAL Discipline -Merchandise Marker Problems Problem Description Start Date Status Goals Interve ntions AIRCRAFT STRUCTURAL REPAIRER Referral Disciplines: Skilled Services 07/28/2024 Resolved on 08/01/2024 1 goal linked to scheduled/documen josseline intervention 1 goal intervention scheduled/document ed in this visit AIRCRAFT STRUCTURAL REPAIRER Custodial Care Needs Disciplines: AIRCRAFT STRUCTURAL REPAIRER 08/01/2024 Resolved on 08/01/2024 1 goal linked to scheduled/documen josseline intervention 1 goal intervention scheduled/document ed in this visit AIRCRAFT STRUCTURAL REPAIRER General Evaluation and Treatment Disciplines: AIRCRAFT STRUCTURAL REPAIRER 08/01/2024 Resolved on 08/01/2024 1 goal linked to scheduled/documen josseline intervention 1 goal intervention scheduled/document ed in this visit AIRCRAFT STRUCTURAL REPAIRER Social/Emotional Support Disciplines: AIRCRAFT STRUCTURAL REPAIRER 08/01/2024 Resolved on 08/01/2024 1 goal linked to scheduled/documen josseline intervention 1 goal intervention scheduled/document ed in this visit Goals Goal Associated Problem Outcome Goal Met? Visit Notes Patient will be referred to additional discipline as needed AIRCRAFT STRUCTURAL REPAIRER Referral Completed Yes Patients Access Rn Care Needs Will Be Met Description: Patients parts counterman care needs will be met by information provided and referrals made. AIRCRAFT STRUCTURAL REPAIRER Custodial Care Needs Completed Yes Complete General Evaluation and Treatment Description: patient will demonstrate compliance with and participation in the plan of treatment. AIRCRAFT STRUCTURAL REPAIRER General Evaluation and Treatment Completed Yes Provide Social/Emotional Support Description: patient will have adequate social emotional support as evidence by consistent contact with family and friends. AIRCRAFT STRUCTURAL REPAIRER Social/Emotional Support Completed Yes Interventions Intervention Associated Problem/Goal Status Variance Visit Notes AIRCRAFT STRUCTURAL REPAIRER evaluation and treatment Description: AIRCRAFT STRUCTURAL REPAIRER Referral eval and treat for Community Resources and Request for application for Financial Assistance. Problem:AIRCRAFT STRUCTURAL REPAIRER Referral Goal:Patient will be referred to additional discipline as needed Completed terminal operations manager care planning Problem:AIRCRAFT STRUCTURAL REPAIRER Access Rn Care Needs Goal:Patients Access Rn Care Needs Will Be Met Completed Patients parts counterman care needs will be met by information provided and WAITER/WAITRESS made referral to [facility] due to safety concerns and possible exploitation. AIRCRAFT STRUCTURAL REPAIRER Assessment Problem:AIRCRAFT STRUCTURAL REPAIRER General Evaluation and Treatment Goal:Complete General Evaluation and Treatment Completed patient vague when answering questions and regarding him managing in alone in his apt. Adequate social/emotional support Problem:AIRCRAFT STRUCTURAL REPAIRER Social/Emotional Support Goal:Provide Social/Emotional Support Completed patient stating he likes to be alone and has limited help with his care. WAITER/WAITRESS made referral to [facility] due to safety concerns and possible exploitation. 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 Discipline -Physical Therapy Problems Problem Description Start Date Status Goals Interve ntions Medication Education Disciplines: Skilled Services 07/28/2024 Active 1 goal linked to scheduled/documen josseline intervention 1 goal intervention scheduled/document ed in this visit Sepsis Disciplines: Skilled Services 07/28/2024 Active 1 goal linked to scheduled/documen josseline intervention 1 goal intervention scheduled/document ed in this visit Risk for skin breakdown Disciplines: Skilled Services 07/28/2024 Active 1 goal linked to scheduled/documen josseline intervention 1 goal intervention scheduled/document ed in this visit Physician Specific Parameters Disciplines: Skilled Services 07/28/2024 Active 1 goal linked to scheduled/documen josseline intervention 1 goal intervention scheduled/document ed in this visit Risk for Falls Disciplines: Skilled Services 07/28/2024 Active 1 goal linked to scheduled/documen josseline intervention 1 goal intervention scheduled/document ed in this visit Pain Disciplines: Skilled Services 07/28/2024 Active 1 goal linked to scheduled/documen josseline intervention 1 goal intervention scheduled/document ed in this visit High Risk Medications Disciplines: Skilled Services 07/28/2024 Active 1 goal linked to scheduled/documen josseline intervention 1 goal intervention scheduled/document ed in this visit Discharge Disciplines: Skilled Services 07/28/2024 Active 1 goal linked to scheduled/documen josseline intervention 2 goal interventions scheduled/document ed in this visit PT Impaired muscle performance and/or ROM Disciplines: PT 07/29/2024 Active 1 goal linked to scheduled/documen josseilne intervention 1 goal intervention scheduled/document ed in this visit PT Impaired mobility Disciplines: PT 07/29/2024 Active 1 goal linked to scheduled/documen josseline intervention 1 goal intervention scheduled/document ed in this visit PT Impaired gait Disciplines: PT 07/29/2024 Active 1 goal linked to scheduled/documen josseline intervention 1 goal intervention scheduled/document ed in this visit PT Impaired balance Disciplines: PT 07/29/2024 Active 1 goal linked to scheduled/documen josseline intervention 1 goal intervention scheduled/document ed in this visit PT Learning Assessment Disciplines: PT 07/29/2024 Active 1 goal linked to scheduled/documen josseline intervention 1 goal intervention scheduled/document ed in this visit PT Cardiovascular Disease Disciplines: PT 07/29/2024 Active 1 goal linked to scheduled/documen josseline intervention 1 goal intervention scheduled/document ed in this visit Goals Goal Associated Problem Outcome Goal Met? Visit Notes Patient/caregiver will demonstrate ability to obtain, store, identify and administer ordered medications, keep accurate medication list in home, and adhere to medication schedule Description: Patient/caregiver will demonstrate ability to obtain, store, identify and administer ordered medications, keep accurate medication list in home, and adhere to medication schedule by 09/25/24. Medication Education No Patient/caregiver will be able to identify and report symptoms of sepsis Description: Patient/caregiver will be able to identify signs/symptoms of sepsis infection and will verbalize actions to take if suspected by 09/25/24. Sepsis No Manage risk for skin breakdown Description: Patient/caregiver will verbalize and demonstrate understanding of the risks and measures to be taken to monitor and prevent skin breakdown by 09/25/24. Risk for skin breakdown No Patient to maintain parameters within physician-specified ranges throughout certification period Physician Specific Parameters No Manage Risk for falls Description: Patient/caregiver will verbalize knowledge of individualized fall prevention strategies by 09/25/24. Risk for Falls No Manage Pain Description: Patient/caregiver will verbalize knowledge and understanding of appropriate techniques to control pain, including pain medication and non-pharmacological techniques. Patient will verbalize or demonstrate an acceptable level of pain as evidenced by a pain score of 2/10 and improvement in ability to perform activities of daily living to be achieved by 09/25/24. Pain No Patient/caregiver will teach back high risk medication side effect and precaution education Description: STG Patient/caregiver will verbalize understanding of high risk medication side effects and precautions to be achieved by 09/21/24. LTG Patient/caregiver will continue to verbalize understanding of high risk medication side effects and precautions throughout certification period. High Risk Medications No Manage discharge planning Description: Patient/caregiver will verbalize understanding of ongoing discharge plan provided related to disease management, arrangements for outpatient and/or community services, obtaining medications, supplies, and DME, as needed throughout certification period. Discharge No Improved Muscle Performance and/or ROM Description: LTG: Patient will demonstrate improved muscle performance to meet functional goals as evidenced by improved 30 second chair rise score to 5, to be achieved by 08/26/24. LTG: Patient and/or caregiver will verbalize/demonstrate independence with home exercise program, to improve functional mobility, to be achieved by 08/26/24. PT Impaired muscle performance and/or ROM No Improved Transfers Description: STG: Patient will demonstrate safe transfers to/from bed and wheelchair independently, to be achieved by 08/12/24. PT Impaired mobility No Improved Gait Description: STG: Patient will demonstrate improved gait ability as evidenced by ambulation 80 feet with front wheeled walker with supervision,, to be achieved by 08/12/24 LTG: Patient will demonstrate improved gait ability as evidenced by ambulation 125 feet with front wheeled walker with supervision, , to be achieved by 08/26/24. PT Impaired gait No Improved Balance Description: LTG: Patient will demonstrate improved standing balance to meet functional goals as evidenced by patient reporting no falls to be achieved by 08/26/24. PT Impaired balance No Demonstrate understanding of education Description: Patient and/or caregiver will understand educational instruction to be achieved by 09/25/24. PT Learning Assessment No Manage Secondary Cardiovascular disease Description: Improve patient and/or caregiver understanding of secondary cardiovascular disease management as evidenced by patient and/or caregiver able to verbalize, demonstrate, and teach back instruction, to be achieved by 09/25/24. PT Cardiovascular Disease No Interventions Intervention Associated Problem/Goal Status Variance Visit Notes Medication Education Description: Evaluate/instruct patient/caregiver on obtaining, storing, identifying and administering ordered medications as well as keeping accurate medication list in the home and adhereing to medication schedule Problem:Medication Education Goal:Patient/caregiver will demonstrate ability to obtain, store, identify and administer ordered medications, keep accurate medication list in home, and adhere to medication schedule Completed Patient instructed on importance of keeping accurate medication list in home and adhering to medication schedule. Risk of Sepsis Description: Patient is at risk for sepsis. Monitor closely for s/s of sepsis. Problem:Sepsis Goal:Patient/caregiver will be able to identify and report symptoms of sepsis Completed Instruct on the risks and measures to be taken to prevent skin breakdown Description: Patient's Kwame Score is: 12. A Kwame score <= to 18 indicates risk for skin breakdown. Problem:Risk for skin breakdown Goal:Manage risk for skin breakdown Completed patient instructed on maintaining skin integrity including: The need for every 1-2 hour turns, position changes, and maintaining activity as tolerated and Elevating and protecting heels SPO2 Description: Notify Dr. Ignacio GOEL if pulse ox is <92% at rest. Problem:Physician Specific Parameters Goal:Patient to maintain parameters within physician-specified ranges throughout certification period Completed Instruct on individual fall risk factors and strategies to prevent falls and injuries caused by falls. Problem:Risk for Falls Goal:Manage Risk for falls Completed PT: Patient instructed on Eliminating Environmental Hazards: Keep pathways clear and Keep rooms and walkways well lit Managing Impaired Functional Mobility: Use assistive device(s): wheelchair Instruct on pain and instruct on strategies to control pain Problem:Pain Goal:Manage Pain Completed patient instructed on techniques to control pain including Non-Pharmacological measures; mobility/therapeutic exercise and distraction. Antibiotic- educated on high risk medication Problem:High Risk Medications Goal:Patient/caregiver will teach back high risk medication side effect and precaution education Completed patient educated on taking medication(s) as prescribed by provider. Do not stop medication or alter doses without speaking with your provider. Discuss medication effectiveness or side effect concerns with your provider and home care team. Take the full dispensed amount even if you start feeling better, as bacteria can become resistant to antibiotic treatment if you do not finish your prescription. Common side effects are upset stomach and diarrhea. Take your antibiotics with food unless otherwise indicated to help with indigestion. Taking an [id number] probiotic or eating yogurt with live and active cultures three times a day can help prevent antibiotic-associate d diarrhea. Call your provider immediately if you develop rashes or hives as this could be a delayed allergic reaction. Seek emergency treatment if you develop severe allergic reaction symptoms such as mouth or tongue swelling. Instruct on ongoing discharge plan Problem:Discharge Goal:Manage discharge planning Completed Ongoing Discharge plan: Discharge plan discussed with patient including frequency and duration for home PT and plan for transition to: live independently at home without ongoing services. Instruct on importance of follow-up appts and continued monitoring with medical provider &/or chronic care clinic Problem:Discharge Goal:Manage discharge planning Completed Education provided on importance of compliance with follow-up appointment(s). Recommendations: patient/caregiver to follow up with scheduling appointment(s) for post-acute/primary care provider/chronic care clinic Physical Therapy Therapeutic Exercises Problem:PT Impaired muscle performance and/or ROM Goal:Improved Muscle Performance and/or ROM Completed patient instructed on strengthening exercises including seated faq, hip flexion, heel toe raises. standing hip flexion and 1/4 squats x's 10 each with verbal and visual cues for form and pace. patient instructed to perform home exercise program twice a day which included above ex. Physical Therapy Transfer Training Problem:PT Impaired mobility Goal:Improved Transfers Completed Transfer training and instruction to patient on safe transfers to and from wheelchair with supervision and verbal cues for locking brakes . Physical Therapy Gait Training Problem:PT Impaired gait Goal:Improved Gait Completed Gait training and instruction to patient on safe ambulation with front wheeled walker for 8 feet with contact guard assist, with verbal cues for corrections of gait deviations including posture and increased step height. Patient ambulates w/ knees flexed and forward lean on walker. Physical Therapy Balance Training Problem:PT Impaired balance Goal:Improved Balance Completed Developed, implemented, and instructed patient on standing balance exercises including static standing w/ww 45 sec. Instruct and educate on knowledge deficits Problem:PT Learning Assessment Goal:Demonstrate understanding of education Completed patient verbalize and/or demonstrate understanding of physical therapy education including home exercise program. Education methods include: verbal cues, tactile cues, written instructions and visual cues. Further education required to improve knowledge and compliance with home exercise program. Instruct on signs, symptoms, and management of secondary cardiovascular disease Problem:PT Cardiovascular Disease Goal:Manage Secondary Cardiovascular disease Completed Instructed patient on exercise and activity guidelines. documented in this encounter [facility] home Plan of care note* Visit Details Visit Type -SN ROUTINE Discipline -[facility] Problems Problem Description Start Date Status Goals Interve ntions Medication Education Disciplines: Skilled Services 07/28/2024 Active 1 goal linked to scheduled/documen josseline intervention 1 goal intervention scheduled/document ed in this visit Sepsis Disciplines: Skilled Services 07/28/2024 Active 1 goal linked to scheduled/documen josseline intervention 1 goal intervention scheduled/document ed in this visit Physician Specific Parameters Disciplines: Skilled Services 07/28/2024 Active 1 goal linked to scheduled/documen josseline intervention 1 goal intervention scheduled/document ed in this visit Risk for Falls Disciplines: Skilled Services 07/28/2024 Active 1 goal linked to scheduled/documen josseline intervention 1 goal intervention scheduled/document ed in this visit Pain Disciplines: Skilled Services 07/28/2024 Active 1 goal linked to scheduled/documen josseline intervention 1 goal intervention scheduled/document ed in this visit SN Integumentary/Wound s Disciplines: SN 07/28/2024 Active 1 goal linked to scheduled/documen josseline intervention 2 goal interventions scheduled/document ed in this visit SN Learning Assessment Disciplines: SN 07/28/2024 Active 1 goal linked to scheduled/documen josseline intervention 1 goal intervention scheduled/document ed in this visit SN Genitourinary disease process Disciplines: 07/28/2024 Active 1 goal linked to scheduled/documen josseline intervention 1 goal intervention scheduled/document ed in this visit Goals Goal Associated Problem Outcome Goal Met? Visit Notes Patient/caregiver will demonstrate ability to obtain, store, identify and administer ordered medications, keep accurate medication list in home, and adhere to medication schedule Description: Patient/caregiver will demonstrate ability to obtain, store, identify and administer ordered medications, keep accurate medication list in home, and adhere to medication schedule by 09/25/24. Medication Education No Patient/caregiver will be able to identify and report symptoms of sepsis Description: Patient/caregiver will be able to identify signs/symptoms of sepsis infection and will verbalize actions to take if suspected by 09/25/24. Sepsis No Patient to maintain parameters within physician-specified ranges throughout certification period Physician Specific Parameters No Manage Risk for falls Description: Patient/caregiver will verbalize knowledge of individualized fall prevention strategies by 09/25/24. Risk for Falls No Manage Pain Description: Patient/caregiver will verbalize knowledge and understanding of appropriate techniques to control pain, including pain medication and non-pharmacological techniques. Patient will verbalize or demonstrate an acceptable level of pain as evidenced by a pain score of 2/10 and improvement in ability to perform activities of daily living to be achieved by 09/25/24. Pain No Patient/Caregiver will have improved healing and be free of signs and symptoms of complications Description: Patient/caregiver will verbalize management strategies to promote wound healing & prevent complications as evidenced by improved healing & no complications by 09/15/24. SN Integumentary/Wounds No Demonstrate understanding of education Description: Patient and/or caregiver will verbalize understanding of educational instruction provided throughout certification period. SN Learning Assessment No Patient/Caregiver will verbalize understanding and demonstrate improved management of genitourinary disease/condition. Description: Patient/Caregiver will state understanding of genitourinary disease/condition and be able to teach back management strategies by 09/15/24. SN Genitourinary disease process No Interventions Intervention Associated Problem/Goal Status Variance Visit Notes Medication Education Description: Evaluate/instruct patient/caregiver on obtaining, storing, identifying and administering ordered medications as well as keeping accurate medication list in the home and adhereing to medication schedule Problem:Medication Education Goal:Patient/caregive r will demonstrate ability to obtain, store, identify and administer ordered medications, keep accurate medication list in home, and adhere to medication schedule Completed Patient instructed on importance of keeping accurate medication list in home, need to take up-to-date medication list to all medical provider appointments and adhering to medication schedule. Risk of Sepsis Description: Patient is at risk for sepsis. Monitor closely for s/s of sepsis. Problem:Sepsis Goal:Patient/caregive r will be able to identify and report symptoms of sepsis Completed SPO2 Description: Notify Dr. Ignacio GOEL if pulse ox is <92% at rest. Problem:Physician Specific Parameters Goal:Patient to maintain parameters within physician-specified ranges throughout certification period Completed Instruct on individual fall risk factors and strategies to prevent falls and injuries caused by falls. Problem:Risk for Falls Goal:Manage Risk for falls Completed SN: Patient instructed on Managing Cognitive Impairment/Depression: Recommended use of visual cues/reminders for safety Managing Impaired Functional Mobility: Use assistive device(s): wheelchair Managing Pain: Recommended pain medication schedule and management of side effects to minimize fall risk Instruct on pain and instruct on strategies to control pain Problem:Pain Goal:Manage Pain Completed patient instructed on techniques to control pain including Pharmacological measures and Non-Pharmacological measures; rest, positioning/elevation, distraction and breathing/relaxation. Wound Care: Perform wound care (1) Description: Wound Care Order: Wound location: RLE Wound type (etiology): Traumatic Order: Cleanse with soap and water, leave OPERATING ROOM AIDE Frequency: daily Wound care to be completed by patient except for scheduled SN wound care visits. Measure wound/incision at least weekly. Okay to substitute comparable products from home care formulary. Problem:SN Integumentary/Wounds Goal:Patient/Caregive r will have improved healing and be free of signs and symptoms of complications Completed Completed by SN. Patient did tolerate well. Instruct patient/caregiver healing process and management measures to promote healing and avoid complications Problem:SN Integumentary/Wounds Goal:Patient/Caregive r will have improved healing and be free of signs and symptoms of complications Completed patient instructed on the following: healing process, signs and symptoms of infection and importance of good nutrition. Instruct and educate on knowledge deficits Problem:SN Learning Assessment Goal:Demonstrate understanding of education Completed patient verbalize and/or demonstrate understanding of nursing education completed today. Education methods include: verbal cues. Further education required to improve knowledge and compliance with fall prevention/home safety strategies, genitourinary care management, medication management, nutrition and pain management. Catheter- Instruct Patient/Caregiver on use and management of a urinary catheter Description: Urinary catheter is a hancock catheter. Problem:SN Genitourinary disease process Goal:Patient/Caregive r will verbalize understanding and demonstrate improved management of genitourinary disease/condition. Completed patient instructed on catheter management including: cleansing around catheter insertion site, emptying and disposing of urine from the bag and use of securement device. documented in this encounter [facility] home Plan of care note* Visit Details Visit Type -AGRICULTURAL ENGINEERING TEACHER ROUTINE Discipline -Home Health Aide Problems Problem Description Start Date Status Goals Interve ntions Home Health Aide Care Plan Disciplines: All Services, AGRICULTURAL ENGINEERING TEACHER 07/28/2024 Active 1 goal linked to scheduled/documente d intervention 3 goal interventions scheduled/documented in this visit Goals Goal Associated Problem Outcome Goal Met? Visit Notes Patient will maintain adequate hygiene and demonstrate safe ambulation,transfers, positioning. Patient status will be reported to staffing account manager. Patient will be provided with assistance for IADLs. Home Health Aide Care Plan No Interventions Intervention Associated Problem/Goal Status Variance Visit Notes Assist with transfer Description: Assist with transfer pivot. Problem:Home Health Aide Care Plan Goal:Patient will maintain adequate hygiene and demonstrate safe ambulation,transfers, positioning. Patient status will be reported to staffing account manager. Patient will be provided with assistance for IADLs. Completed Completed Assist with dressing/undressing Problem:Home Health Aide Care Plan Goal:Patient will maintain adequate hygiene and demonstrate safe ambulation,transfers, positioning. Patient status will be reported to staffing account manager. Patient will be provided with assistance for IADLs. Completed Completed Bathe patient Description: Bathe patient sponge bath on commode. Problem:Home Health Aide Care Plan Goal:Patient will maintain adequate hygiene and demonstrate safe ambulation,transfers, positioning. Patient status will be reported to staffing account manager. Patient will be provided with assistance for IADLs. Completed Com[facility] Visit Details Visit Type -CLUB ROOM ATTENDANT ROUTINE Discipline -Physical Therapy Problems Problem Description Start Date Status Goals Interve ntions Medication Education Disciplines: Skilled Services 07/28/2024 Active 1 goal linked to scheduled/documen josseline intervention 1 goal intervention scheduled/document ed in this visit Sepsis Disciplines: Skilled Services 07/28/2024 Active 1 goal linked to scheduled/documen josseline intervention 1 goal intervention scheduled/document ed in this visit Physician Specific Parameters Disciplines: Skilled Services 07/28/2024 Active 1 goal linked to scheduled/documen josseline intervention 1 goal intervention scheduled/document ed in this visit Risk for Falls Disciplines: Skilled Services 07/28/2024 Active 1 goal linked to scheduled/documen josseline intervention 1 goal intervention scheduled/document ed in this visit Pain Disciplines: Skilled Services 07/28/2024 Active 1 goal linked to scheduled/documen josseline intervention 1 goal intervention scheduled/document ed in this visit High Risk Medications Disciplines: Skilled Services 07/28/2024 Active 1 goal linked to scheduled/documen josseline intervention 1 goal intervention scheduled/document ed in this visit Discharge Disciplines: Skilled Services 07/28/2024 Active 1 goal linked to scheduled/documen josseline intervention 2 goal interventions scheduled/document ed in this visit PT Impaired muscle performance and/or ROM Disciplines: PT 07/29/2024 Active 1 goal linked to scheduled/documen josseline intervention 1 goal intervention scheduled/document ed in this visit PT Impaired gait Disciplines: PT 07/29/2024 Active 1 goal linked to scheduled/documen josseline intervention 1 goal intervention scheduled/document ed in this visit PT Impaired balance Disciplines: PT 07/29/2024 Active 1 goal linked to scheduled/documen josseline intervention 1 goal intervention scheduled/document ed in this visit PT Learning Assessment Disciplines: PT 07/29/2024 Active 1 goal linked to scheduled/documen josseline intervention 1 goal intervention scheduled/document ed in this visit PT Cardiovascular Disease Disciplines: PT 07/29/2024 Active 1 goal linked to scheduled/documen josseline intervention 1 goal intervention scheduled/document ed in this visit Goals Goal Associated Problem Outcome Goal Met? Visit Notes Patient/caregiver will demonstrate ability to obtain, store, identify and administer ordered medications, keep accurate medication list in home, and adhere to medication schedule Description: Patient/caregiver will demonstrate ability to obtain, store, identify and administer ordered medications, keep accurate medication list in home, and adhere to medication schedule by 09/25/24. Medication Education No Patient/caregiver will be able to identify and report symptoms of sepsis Description: Patient/caregiver will be able to identify signs/symptoms of sepsis infection and will verbalize actions to take if suspected by 09/25/24. Sepsis No Patient to maintain parameters within physician-specified ranges throughout certification period Physician Specific Parameters No Manage Risk for falls Description: Patient/caregiver will verbalize knowledge of individualized fall prevention strategies by 09/25/24. Risk for Falls No Manage Pain Description: Patient/caregiver will verbalize knowledge and understanding of appropriate techniques to control pain, including pain medication and non-pharmacological techniques. Patient will verbalize or demonstrate an acceptable level of pain as evidenced by a pain score of 2/10 and improvement in ability to perform activities of daily living to be achieved by 09/25/24. Pain No Patient/caregiver will teach back high risk medication side effect and precaution education Description: STG Patient/caregiver will verbalize understanding of high risk medication side effects and precautions to be achieved by 09/21/24. LTG Patient/caregiver will continue to verbalize understanding of high risk medication side effects and precautions throughout certification period. High Risk Medications No Manage discharge planning Description: Patient/caregiver will verbalize understanding of ongoing discharge plan provided related to disease management, arrangements for outpatient and/or community services, obtaining medications, supplies, and DME, as needed throughout certification period. Discharge No Improved Muscle Performance and/or ROM Description: LTG: Patient will demonstrate improved muscle performance to meet functional goals as evidenced by improved 30 second chair rise score to 5, to be achieved by 08/26/24. LTG: Patient and/or caregiver will verbalize/demonstrate independence with home exercise program, to improve functional mobility, to be achieved by 08/26/24. PT Impaired muscle performance and/or ROM No Improved Gait Description: STG: Patient will demonstrate improved gait ability as evidenced by ambulation 80 feet with front wheeled walker with supervision,, to be achieved by 08/12/24 LTG: Patient will demonstrate improved gait ability as evidenced by ambulation 125 feet with front wheeled walker with supervision, , to be achieved by 08/26/24. PT Impaired gait No Improved Balance Description: LTG: Patient will demonstrate improved standing balance to meet functional goals as evidenced by patient reporting no falls to be achieved by 08/26/24. PT Impaired balance No Demonstrate understanding of education Description: Patient and/or caregiver will understand educational instruction to be achieved by 09/25/24. PT Learning Assessment No Manage Secondary Cardiovascular disease Description: Improve patient and/or caregiver understanding of secondary cardiovascular disease management as evidenced by patient and/or caregiver able to verbalize, demonstrate, and teach back instruction, to be achieved by 09/25/24. PT Cardiovascular Disease No Interventions Intervention Associated Problem/Goal Status Variance Visit Notes Medication Education Description: Evaluate/instruct patient/caregiver on obtaining, storing, identifying and administering ordered medications as well as keeping accurate medication list in the home and adhereing to medication schedule Problem:Medication Education Goal:Patient/caregive r will demonstrate ability to obtain, store, identify and administer ordered medications, keep accurate medication list in home, and adhere to medication schedule Completed Patient instructed on importance of keeping accurate medication list in home and adhering to medication schedule. Risk of Sepsis Description: Patient is at risk for sepsis. Monitor closely for s/s of sepsis. Problem:Sepsis Goal:Patient/caregive r will be able to identify and report symptoms of sepsis Completed SPO2 Description: Notify Dr. Ignacio GOEL if pulse ox is <92% at rest. Problem:Physician Specific Parameters Goal:Patient to maintain parameters within physician-specified ranges throughout certification period Completed Instruct on individual fall risk factors and strategies to prevent falls and injuries caused by falls. Problem:Risk for Falls Goal:Manage Risk for falls Completed PT: Patient instructed on Managing Impaired Functional Mobility: Use assistive device(s): wheelchair Instruct on pain and instruct on strategies to control pain Problem:Pain Goal:Manage Pain Completed patient instructed on techniques to control pain including Pharmacological measures and Non-Pharmacological measures; positioning/elevation and mobility/therapeutic exercise. Antibiotic- educated on high risk medication Problem:High Risk Medications Goal:Patient/caregive r will teach back high risk medication side effect and precaution education Completed patient educated on taking medication(s) as prescribed by provider. Do not stop medication or alter doses without speaking with your provider. Discuss medication effectiveness or side effect concerns with your provider and home care team. Take the full dispensed amount even if you start feeling better, as bacteria can become resistant to antibiotic treatment if you do not finish your prescription. Common side effects are upset stomach and diarrhea. Take your antibiotics with food unless otherwise indicated to help with indigestion. Taking an [id number] probiotic or eating yogurt with live and active cultures three times a day can help prevent antibiotic-associated diarrhea. Call your provider immediately if you develop rashes or hives as this could be a delayed allergic reaction. Seek emergency treatment if you develop severe allergic reaction symptoms such as mouth or tongue swelling. Instruct on ongoing discharge plan Problem:Discharge Goal:Manage discharge planning Completed Ongoing Discharge plan: Discharge plan discussed with patient including frequency and duration for home OT and plan for transition to: live independently at home without ongoing services. Instruct on importance of follow-up appts and continued monitoring with medical provider &/or chronic care clinic Problem:Discharge Goal:Manage discharge planning Completed Education provided on importance of compliance with follow-up appointment(s). Recommendations: patient/caregiver to follow up with scheduling appointment(s) for post-acute/primary care provider/chronic care clinic Physical Therapy Therapeutic Exercises Problem:PT Impaired muscle performance and/or ROM Goal:Improved Muscle Performance and/or ROM Completed patient instructed on strengthening exercises including seated faq, hip flexipn and abd and heels toe raises x's 10 each 1/4 squats x's 10 with verbal and visual cues for form and pace. patient instructed to perform home exercise program twice a day which included above ex. Physical Therapy Gait Training Problem:PT Impaired gait Goal:Improved Gait Completed Gait training and instruction to patient on safe ambulation with front wheeled walker for 2x's50 feet and close wc follow with contact guard assist, with verbal cues for corrections of gait deviations including knee ext, posture and pace . Physical Therapy Balance Training Problem:PT Impaired balance Goal:Improved Balance Completed Developed, implemented, and instructed patient on standing balance exercises including static standing at sink 2x's 30sec. Instruct and educate on knowledge deficits Problem:PT Learning Assessment Goal:Demonstrate understanding of education Completed patient verbalize and/or demonstrate understanding of physical therapy education including home exercise program. Education methods include: verbal cues and visual cues. Further education required to improve knowledge and compliance with home exercise program. Instruct on signs, symptoms, and management of secondary cardiovascular disease Problem:PT Cardiovascular Disease Goal:Manage Secondary Cardiovascular disease Completed Instructed patient on exercise and activity guidelines. [facility] Visit Details Visit Type -OBREGON ROUTINE Discipline -Occupational Therapy Problems Problem Description Start Date Status Goals Interve ntions Medication Education Disciplines: Skilled Services 07/28/2024 Active 1 goal linked to scheduled/documente d intervention 1 goal intervention scheduled/documente d in this visit Sepsis Disciplines: Skilled Services 07/28/2024 Active 1 goal linked to scheduled/documente d intervention 1 goal intervention scheduled/documente d in this visit Risk for skin breakdown Disciplines: Skilled Services 07/28/2024 Active 1 goal linked to scheduled/documente d intervention 1 goal intervention scheduled/documente d in this visit Physician Specific Parameters Disciplines: Skilled Services 07/28/2024 Active 1 goal linked to scheduled/documente d intervention 1 goal intervention scheduled/documente d in this visit Risk for Falls Disciplines: Skilled Services 07/28/2024 Active 1 goal linked to scheduled/documente d intervention 1 goal intervention scheduled/documente d in this visit Pain Disciplines: Skilled Services 07/28/2024 Active 1 goal linked to scheduled/documente d intervention 1 goal intervention scheduled/documente d in this visit Discharge Disciplines: Skilled Services 07/28/2024 Active 1 goal linked to scheduled/documente d intervention 1 goal intervention scheduled/documente d in this visit OT Learning Assessment Disciplines: OT 07/31/2024 Active 1 goal linked to scheduled/documente d intervention 1 goal intervention scheduled/documente d in this visit OT ADLs/IADLs Disciplines: OT 07/31/2024 Active 1 goal linked to scheduled/documente d intervention 1 goal intervention scheduled/documente d in this visit Goals Goal Associated Problem Outcome Goal Met? Visit Notes Patient/caregiver will demonstrate ability to obtain, store, identify and administer ordered medications, keep accurate medication list in home, and adhere to medication schedule Description: Patient/caregiver will demonstrate ability to obtain, store, identify and administer ordered medications, keep accurate medication list in home, and adhere to medication schedule by 09/25/24. Medication Education No Patient/caregiver will be able to identify and report symptoms of sepsis Description: Patient/caregiver will be able to identify signs/symptoms of sepsis infection and will verbalize actions to take if suspected by 09/25/24. Sepsis No Manage risk for skin breakdown Description: Patient/caregiver will verbalize and demonstrate understanding of the risks and measures to be taken to monitor and prevent skin breakdown by 09/25/24. Risk for skin breakdown No Patient to maintain parameters within physician-specified ranges throughout certification period Physician Specific Parameters No Manage Risk for falls Description: Patient/caregiver will verbalize knowledge of individualized fall prevention strategies by 09/25/24. Risk for Falls No Manage Pain Description: Patient/caregiver will verbalize knowledge and understanding of appropriate techniques to control pain, including pain medication and non-pharmacological techniques. Patient will verbalize or demonstrate an acceptable level of pain as evidenced by a pain score of 2/10 and improvement in ability to perform activities of daily living to be achieved by 09/25/24. Pain No Manage discharge planning Description: Patient/caregiver will verbalize understanding of ongoing discharge plan provided related to disease management, arrangements for outpatient and/or community services, obtaining medications, supplies, and DME, as needed throughout certification period. Discharge No Demonstrate understanding of education Description: Patient and/or caregiver will understand educational instruction to be achieved by 08/26/24. OT Learning Assessment No Improved ADLs/IADLs performance Description: patient will verbalize understanding of instructions and demonstrate improved performance of lower body dressing, bathing, toileting, meal prep and homemaking to independence as evidenced by improved Raysa ADL Index score to at least 80/100 to be achieved by 08/26/24. OT ADLs/IADLs No Interventions Intervention Associated Problem/Goal Status Variance Visit Notes Medication Education Description: Evaluate/instruct patient/caregiver on obtaining, storing, identifying and administering ordered medications as well as keeping accurate medication list in the home and adhereing to medication schedule Problem:Medication Education Goal:Patient/caregive r will demonstrate ability to obtain, store, identify and administer ordered medications, keep accurate medication list in home, and adhere to medication schedule Completed Patient instructed on importance of keeping accurate medication list in home, need to take up-to-date medication list to all medical provider appointments and adhering to medication schedule. Risk of Sepsis Description: Patient is at risk for sepsis. Monitor closely for s/s of sepsis. Problem:Sepsis Goal:Patient/caregive r will be able to identify and report symptoms of sepsis Completed Instruct on the risks and measures to be taken to prevent skin breakdown Description: Patient's Kwame Score is: 12. A Kwame score <= to 18 indicates risk for skin breakdown. Problem:Risk for skin breakdown Goal:Manage risk for skin breakdown Completed patient instructed on maintaining skin integrity including: Inspecting bony prominences, Routine skin care and Notifying [facility] clinician of changes to skin integrity Evaluation for pressure reduction surfaces completed for bed and wheelchair. SPO2 Description: Notify Dr. Ignacio GOEL if pulse ox is <92% at rest. Problem:Physician Specific Parameters Goal:Patient to maintain parameters within physician-specified ranges throughout certification period Completed Instruct on individual fall risk factors and strategies to prevent falls and injuries caused by falls. Problem:Risk for Falls Goal:Manage Risk for falls Completed OT: Patient instructed on Eliminating Environmental Hazards: Keep pathways clear, Keep rooms and walkways well lit, Wear supportive shoes or non-skid socks and Keep frequently used items within reach Managing Pain Instruct on pain and instruct on strategies to control pain Problem:Pain Goal:Manage Pain Completed patient instructed on techniques to control pain including Non-Pharmacological measures; rest and positioning/elevation . Instruct on ongoing discharge plan Problem:Discharge Goal:Manage discharge planning Completed Ongoing Discharge plan: Discharge plan discussed with patient including frequency and duration for home OT and plan for transition to: live independently at home without ongoing services. Instruct and educate on knowledge deficits Problem:OT Learning Assessment Goal:Demonstrate understanding of education Completed Education methods include: verbal cues. Patient/Caregiver require further education to improve knowledge and compliance with fall prevention strategies, pain management, home safety, infection control precautions, functional adl/iadl activity, endurance training and discharge planning. ADL/IADLs Training Problem:OT ADLs/IADLs Goal:Improved ADLs/IADLs performance Completed Instruct patient on energy conservation, adaptive equipment/DME use and safety and falls prevention and dairy consultant use to facilite improved performance of lower body dressing with supervision or setup assistance and few verbal cues for safety/use of DME and threading cath bag through underware and shorts leg. Pt. demo fair/fair- stand balance. [facility] Visit Details Visit Type -CLUB ROOM ATTENDANT ROUTINE Discipline -Physical Therapy Problems Problem Description Start Date Status Goals Interve ntions Medication Education Disciplines: Skilled Services 07/28/2024 Active 1 goal linked to scheduled/document ed intervention 1 goal intervention scheduled/document ed in this visit Sepsis Disciplines: Skilled Services 07/28/2024 Active 1 goal linked to scheduled/document ed intervention 1 goal intervention scheduled/document ed in this visit Risk for skin breakdown Disciplines: Skilled Services 07/28/2024 Active 1 goal linked to scheduled/document ed intervention 1 goal intervention scheduled/document ed in this visit Physician Specific Parameters Disciplines: Skilled Services 07/28/2024 Active 1 goal linked to scheduled/document ed intervention 1 goal intervention scheduled/document ed in this visit Risk for Falls Disciplines: Skilled Services 07/28/2024 Active 1 goal linked to scheduled/document ed intervention 1 goal intervention scheduled/document ed in this visit Pain Disciplines: Skilled Services 07/28/2024 Active 1 goal linked to scheduled/document ed intervention 1 goal intervention scheduled/document ed in this visit Discharge Disciplines: Skilled Services 07/28/2024 Active 1 goal linked to scheduled/document ed intervention 2 goal interventions scheduled/document ed in this visit PT Impaired muscle performance and/or ROM Disciplines: PT 07/29/2024 Active 1 goal linked to scheduled/document ed intervention 1 goal intervention scheduled/document ed in this visit PT Impaired mobility Disciplines: PT 07/29/2024 Active 1 goal linked to scheduled/document ed intervention 1 goal intervention scheduled/document ed in this visit PT Learning Assessment Disciplines: PT 07/29/2024 Active 1 goal linked to scheduled/document ed intervention 1 goal intervention scheduled/document ed in this visit Goals Goal Associated Problem Outcome Goal Met? Visit Notes Patient/caregiver will demonstrate ability to obtain, store, identify and administer ordered medications, keep accurate medication list in home, and adhere to medication schedule Description: Patient/caregiver will demonstrate ability to obtain, store, identify and administer ordered medications, keep accurate medication list in home, and adhere to medication schedule by 09/25/24. Medication Education No Patient/caregiver will be able to identify and report symptoms of sepsis Description: Patient/caregiver will be able to identify signs/symptoms of sepsis infection and will verbalize actions to take if suspected by 09/25/24. Sepsis No Manage risk for skin breakdown Description: Patient/caregiver will verbalize and demonstrate understanding of the risks and measures to be taken to monitor and prevent skin breakdown by 09/25/24. Risk for skin breakdown No Patient to maintain parameters within physician-specified ranges throughout certification period Physician Specific Parameters No Manage Risk for falls Description: Patient/caregiver will verbalize knowledge of individualized fall prevention strategies by 09/25/24. Risk for Falls No Manage Pain Description: Patient/caregiver will verbalize knowledge and understanding of appropriate techniques to control pain, including pain medication and non-pharmacological techniques. Patient will verbalize or demonstrate an acceptable level of pain as evidenced by a pain score of 2/10 and improvement in ability to perform activities of daily living to be achieved by 09/25/24. Pain No Manage discharge planning Description: Patient/caregiver will verbalize understanding of ongoing discharge plan provided related to disease management, arrangements for outpatient and/or community services, obtaining medications, supplies, and DME, as needed throughout certification period. Discharge No Improved Muscle Performance and/or ROM Description: LTG: Patient will demonstrate improved muscle performance to meet functional goals as evidenced by improved 30 second chair rise score to 5, to be achieved by 08/26/24. LTG: Patient and/or caregiver will verbalize/demonstrate independence with home exercise program, to improve functional mobility, to be achieved by 08/26/24. PT Impaired muscle performance and/or ROM No Improved Transfers Description: STG: Patient will demonstrate safe transfers to/from bed and wheelchair independently, to be achieved by 08/12/24. PT Impaired mobility No Demonstrate understanding of education Description: Patient and/or caregiver will understand educational instruction to be achieved by 09/25/24. PT Learning Assessment No Interventions Intervention Associated Problem/Goal Status Variance Visit Notes Medication Education Description: Evaluate/instruct patient/caregiver on obtaining, storing, identifying and administering ordered medications as well as keeping accurate medication list in the home and adhereing to medication schedule Problem:Medication Education Goal:Patient/caregive r will demonstrate ability to obtain, store, identify and administer ordered medications, keep accurate medication list in home, and adhere to medication schedule Completed Patient instructed on importance of keeping accurate medication list in home. Risk of Sepsis Description: Patient is at risk for sepsis. Monitor closely for s/s of sepsis. Problem:Sepsis Goal:Patient/caregive r will be able to identify and report symptoms of sepsis Completed Instruct on the risks and measures to be taken to prevent skin breakdown Description: Patient's Kwame Score is: 12. A Kwame score <= to 18 indicates risk for skin breakdown. Problem:Risk for skin breakdown Goal:Manage risk for skin breakdown Completed patient instructed on maintaining skin integrity including: The need for every 1-2 hour turns, position changes, and maintaining activity as tolerated SPO2 Description: Notify Dr. Ignacio GOEL if pulse ox is <92% at rest. Problem:Physician Specific Parameters Goal:Patient to maintain parameters within physician-specified ranges throughout certification period Completed Instruct on individual fall risk factors and strategies to prevent falls and injuries caused by falls. Problem:Risk for Falls Goal:Manage Risk for falls Completed PT: Patient instructed on Managing Impaired Functional Mobility: Use assistive device(s): wheelchair Instruct on pain and instruct on strategies to control pain Problem:Pain Goal:Manage Pain Completed patient instructed on techniques to control pain including Non-Pharmacological measures; rest and positioning/elevation . Instruct on ongoing discharge plan Problem:Discharge Goal:Manage discharge planning Completed Ongoing Discharge plan: Discharge plan discussed with patient including frequency and duration for home PT and plan for transition to: live independently at home without ongoing services. Instruct on importance of follow-up appts and continued monitoring with medical provider &/or chronic care clinic Problem:Discharge Goal:Manage discharge planning Completed Education provided on importance of compliance with follow-up appointment(s). Recommendations: patient/caregiver to follow up with scheduling appointment(s) for post-acute/primary care provider/chronic care clinic Physical Therapy Therapeutic Exercises Problem:PT Impaired muscle performance and/or ROM Goal:Improved Muscle Performance and/or ROM Completed patient instructed on strengthening exercises including seated faq, hip flexion , abd and add, heel toe raises x's 15 each. supine qs, hip abd, heel slides and slr x's 15 each with verbal, tactile and visual cues for form and hold times. patient instructed to perform home exercise program daily which included above ex. Physical Therapy Transfer Training Problem:PT Impaired mobility Goal:Improved Transfers Completed Transfer training and instruction to patient on safe transfers to and from bed and wheelchair with stand by assist and verbal cues for safety. Instruct and educate on knowledge deficits Problem:PT Learning Assessment Goal:Demonstrate understanding of education Completed patient verbalize and/or demonstrate understanding of physical therapy education including home exercise program. Education methods include: verbal cues, tactile cues and visual cues. Further education required to improve knowledge and compliance with home exercise program. 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 Visit Notes Patient will maintain adequate hygiene and demonstrate safe ambulation,transfers, positioning. Patient status will be reported to staffing account manager. Patient will be provided with assistance for IADLs. Home Health Aide Care Plan No Interventions Intervention Associated Problem/Goal Status Variance Visit Notes Assist with transfer Description: Assist with transfer pivot. Problem:Home Health Aide Care Plan Goal:Patient will maintain adequate hygiene and demonstrate safe ambulation,transfers, positioning. Patient status will be reported to staffing account manager. Patient will be provided with assistance for IADLs. Completed Completed Assist with dressing/undressing Problem:Home Health Aide Care Plan Goal:Patient will maintain adequate hygiene and demonstrate safe ambulation,transfers, positioning. Patient status will be reported to staffing account manager. Patient will be provided with assistance for IADLs. Completed Completed Bathe patient Description: Bathe patient sponge bath on commode. Problem:Home Health Aide Care Plan Goal:Patient will maintain adequate hygiene and demonstrate safe ambulation,transfers, positioning. Patient status will be reported to staffing account manager. Patient will be provided with assistance for IADLs. Completed Completed documented in [facility]* Visit Details Visit Type -SN ROUTINE Discipline -[facility] Problems Problem Description Start Date Status Goals Interve ntions Medication Education Disciplines: Skilled Services 07/28/2024 Active 1 goal linked to scheduled/documen josseline intervention 1 goal intervention scheduled/document ed in this visit Sepsis Disciplines: Skilled Services 07/28/2024 Active 1 goal linked to scheduled/documen josseline intervention 1 goal intervention scheduled/document ed in this visit Physician Specific Parameters Disciplines: Skilled Services 07/28/2024 Active 1 goal linked to scheduled/documen josseline intervention 1 goal intervention scheduled/document ed in this visit Risk for Falls Disciplines: Skilled Services 07/28/2024 Active 1 goal linked to scheduled/documen josseline intervention 1 goal intervention scheduled/document ed in this visit Pain Disciplines: Skilled Services 07/28/2024 Active 1 goal linked to scheduled/documen josseline intervention 1 goal intervention scheduled/document ed in this visit Nutrition/Hydration Disciplines: Skilled Services 07/28/2024 Active 1 goal linked to scheduled/documen josseline intervention 1 goal intervention scheduled/document ed in this visit Discharge Disciplines: Skilled Services 07/28/2024 Active 1 goal linked to scheduled/documen josseline intervention 1 goal intervention scheduled/document ed in this visit SN Learning Assessment Disciplines: SN 07/28/2024 Active 1 goal linked to scheduled/documen josseline intervention 1 goal intervention scheduled/document ed in this visit SN Genitourinary disease process Disciplines: 07/28/2024 Active 1 goal linked to scheduled/documen josseline intervention 1 goal intervention scheduled/document ed in this visit Goals Goal Associated Problem Outcome Goal Met? Visit Notes Patient/caregiver will demonstrate ability to obtain, store, identify and administer ordered medications, keep accurate medication list in home, and adhere to medication schedule Description: Patient/caregiver will demonstrate ability to obtain, store, identify and administer ordered medications, keep accurate medication list in home, and adhere to medication schedule by 09/25/24. Medication Education No Patient/caregiver will be able to identify and report symptoms of sepsis Description: Patient/caregiver will be able to identify signs/symptoms of sepsis infection and will verbalize actions to take if suspected by 09/25/24. Sepsis No Patient to maintain parameters within physician-specified ranges throughout certification period Physician Specific Parameters No Manage Risk for falls Description: Patient/caregiver will verbalize knowledge of individualized fall prevention strategies by 09/25/24. Risk for Falls No Manage Pain Description: Patient/caregiver will verbalize knowledge and understanding of appropriate techniques to control pain, including pain medication and non-pharmacological techniques. Patient will verbalize or demonstrate an acceptable level of pain as evidenced by a pain score of 2/10 and improvement in ability to perform activities of daily living to be achieved by 09/25/24. Pain No Manage Nutrition/Hydration Description: Patient/caregiver will verbalize/demonstrate knowledge of prescribed diet and/or healthy nutrition to be achieved by 09/25/24. Nutrition/Hydration No Manage discharge planning Description: Patient/caregiver will verbalize understanding of ongoing discharge plan provided related to disease management, arrangements for outpatient and/or community services, obtaining medications, supplies, and DME, as needed throughout certification period. Discharge No Demonstrate understanding of education Description: Patient and/or caregiver will verbalize understanding of educational instruction provided throughout certification period. SN Learning Assessment No Patient/Caregiver will verbalize understanding and demonstrate improved management of genitourinary disease/condition. Description: Patient/Caregiver will state understanding of genitourinary disease/condition and be able to teach back management strategies by 09/15/24. SN Genitourinary disease process No Interventions Intervention Associated Problem/Goal Status Variance Visit Notes Medication Education Description: Evaluate/instruct patient/caregiver on obtaining, storing, identifying and administering ordered medications as well as keeping accurate medication list in the home and adhereing to medication schedule Problem:Medication Education Goal:Patient/caregive r will demonstrate ability to obtain, store, identify and administer ordered medications, keep accurate medication list in home, and adhere to medication schedule Completed Patient instructed on importance of keeping accurate medication list in home, adhering to medication schedule, proper storage of medications and med media planner / buyer set up. Risk of Sepsis Description: Patient is at risk for sepsis. Monitor closely for s/s of sepsis. Problem:Sepsis Goal:Patient/caregive r will be able to identify and report symptoms of sepsis Completed SPO2 Description: Notify Dr. Ignacio GOEL if pulse ox is <92% at rest. Problem:Physician Specific Parameters Goal:Patient to maintain parameters within physician-specified ranges throughout certification period Completed Instruct on individual fall risk factors and strategies to prevent falls and injuries caused by falls. Problem:Risk for Falls Goal:Manage Risk for falls Completed SN: Patient instructed on Eliminating Environmental Hazards: Keep pathways clear and use w/c for mobility Instruct on pain and instruct on strategies to control pain Problem:Pain Goal:Manage Pain Completed patient instructed on techniques to control pain including Non-Pharmacological measures; rest, positioning/elevation , mobility/therapeutic exercise and breathing/relaxation. Define patient s appetite/hydration status and implement strategies to improve compliance with prescribed diet and/or healthy nutrition. Problem:Nutrition/Hyd ration Goal:Manage Nutrition/Hydration Completed reinforced patient on implementing strategies to comply with healthy nutrition and adequate hydration Instruct on importance of follow-up appts and continued monitoring with medical provider &/or chronic care clinic Problem:Discharge Goal:Manage discharge planning Completed Education provided on importance of compliance with follow-up appointment(s). Recommendations: appointment scheduled for 08/15 with urology Instruct and educate on knowledge deficits Problem:SN Learning Assessment Goal:Demonstrate understanding of education Completed patient verbalize and/or demonstrate understanding of nursing education completed today. Education methods include: verbal cues, written instructions and visual cues. Further education required to improve knowledge and compliance with fall prevention/home safety strategies, genitourinary care management, medication management, nutrition and pain management. Catheter- Instruct Patient/Caregiver on use and management of a urinary catheter Description: Urinary catheter is a hancock catheter. Problem:SN Genitourinary disease process Goal:Patient/Caregive r will verbalize understanding and demonstrate improved management of genitourinary disease/condition. Completed patient instructed on catheter management including: cleansing around catheter insertion site and potential complications and actions to take. [facility] Visit Details Visit Type -SN ROUTINE Discipline -[facility] Problems Problem Description Start Date Status Goals Interve ntions Medication Education Disciplines: Skilled Services 07/28/2024 Active 1 goal linked to scheduled/documen josseline intervention 1 goal intervention scheduled/documen josseline in this visit Sepsis Disciplines: Skilled Services 07/28/2024 Active 1 goal linked to scheduled/documen josseline intervention 1 goal intervention scheduled/documen josseline in this visit PT Referral Disciplines: Skilled Services 07/28/2024 Resolved on 08/11/2024 1 goal linked to scheduled/documen josseline intervention Risk for skin breakdown Disciplines: Skilled Services 07/28/2024 Resolved on 08/11/2024 1 goal linked to scheduled/documen josseline intervention Physician Specific Parameters Disciplines: Skilled Services 07/28/2024 Active 1 goal linked to scheduled/documen josseline intervention 1 goal intervention scheduled/documen josseline in this visit Risk for Falls Disciplines: Skilled Services 07/28/2024 Active 1 goal linked to scheduled/documen josseline intervention 1 goal intervention scheduled/documen josseline in this visit Pain Disciplines: Skilled Services 07/28/2024 Active 1 goal linked to scheduled/documen josseline intervention 1 goal intervention scheduled/documen josseline in this visit Nutrition/Hydratio n Disciplines: Skilled Services 07/28/2024 Active 1 goal linked to scheduled/documen josseline intervention 1 goal intervention scheduled/documen josseline in this visit High Risk Medications Disciplines: Skilled Services 07/28/2024 Resolved on 08/11/2024 1 goal linked to scheduled/documen josseline intervention SN Integumentary/Woun ds Disciplines: SN 07/28/2024 Active 1 goal linked to scheduled/documen josseline intervention SN Learning Assessment Disciplines: SN 07/28/2024 Active 1 goal linked to scheduled/documen josseline intervention 1 goal intervention scheduled/documen josseline in this visit SN Genitourinary disease process Disciplines: SN 07/28/2024 Resolved on 08/11/2024 1 goal linked to scheduled/documen josseline intervention 1 goal intervention scheduled/documen josseline in this visit SN Gastrointestinal Disciplines: SN 07/28/2024 Active 1 goal linked to scheduled/documen josseline intervention Goals Goal Associated Problem Outcome Goal Met? Visit Notes Patient/caregiver will demonstrate ability to obtain, store, identify and administer ordered medications, keep accurate medication list in home, and adhere to medication schedule Description: Patient/caregiver will demonstrate ability to obtain, store, identify and administer ordered medications, keep accurate medication list in home, and adhere to medication schedule by 09/25/24. Medication Education No Patient/caregiver will be able to identify and report symptoms of sepsis Description: Patient/caregiver will be able to identify signs/symptoms of sepsis infection and will verbalize actions to take if suspected by 09/25/24. Sepsis No Patient will be referred to additional discipline as needed PT Referral Completed Yes Manage risk for skin breakdown Description: Patient/caregiver will verbalize and demonstrate understanding of the risks and measures to be taken to monitor and prevent skin breakdown by 09/25/24. Risk for skin breakdown Completed Yes Patient to maintain parameters within physician-specified ranges throughout certification period Physician Specific Parameters No Manage Risk for falls Description: Patient/caregiver will verbalize knowledge of individualized fall prevention strategies by 09/25/24. Risk for Falls No Manage Pain Description: Patient/caregiver will verbalize knowledge and understanding of appropriate techniques to control pain, including pain medication and non-pharmacological techniques. Patient will verbalize or demonstrate an acceptable level of pain as evidenced by a pain score of 2/10 and improvement in ability to perform activities of daily living to be achieved by 09/25/24. Pain No Manage Nutrition/Hydration Description: Patient/caregiver will verbalize/demonstrate knowledge of prescribed diet and/or healthy nutrition to be achieved by 09/25/24. Nutrition/Hydration No Patient/caregiver will teach back high risk medication side effect and precaution education Description: STG Patient/caregiver will verbalize understanding of high risk medication side effects and precautions to be achieved by 09/21/24. LTG Patient/caregiver will continue to verbalize understanding of high risk medication side effects and precautions throughout certification period. High Risk Medications Completed Yes Patient/Caregiver will have improved healing and be free of signs and symptoms of complications Description: Patient/caregiver will verbalize management strategies to promote wound healing & prevent complications as evidenced by improved healing & no complications by 09/15/24. SN Integumentary/Wounds Completed Yes Demonstrate understanding of education Description: Patient and/or caregiver will verbalize understanding of educational instruction provided throughout certification period. SN Learning Assessment No Patient/Caregiver will verbalize understanding and demonstrate improved management of genitourinary disease/condition. Description: Patient/Caregiver will state understanding of genitourinary disease/condition and be able to teach back management strategies by 09/15/24. SN Genitourinary disease process No Improved management of GI disease/condition Description: Patient/Caregiver will demonstrate understanding of GI education as evidenced by improved management of gastrointestinal disease/condition by 09/15/24. SN Gastrointestinal Completed Yes Interventions Intervention Associated Problem/Goal Status Variance Visit Notes Medication Education Description: Evaluate/instruct patient/caregiver on obtaining, storing, identifying and administering ordered medications as well as keeping accurate medication list in the home and adhereing to medication schedule Problem:Medication Education Goal:Patient/caregiv er will demonstrate ability to obtain, store, identify and administer ordered medications, keep accurate medication list in home, and adhere to medication schedule Completed Patient instructed on adhering to medication schedule and med media planner / buyer set up. Risk of Sepsis Description: Patient is at risk for sepsis. Monitor closely for s/s of sepsis. Problem:Sepsis Goal:Patient/caregiv er will be able to identify and report symptoms of sepsis Completed SPO2 Description: Notify Dr. Ignacio GOEL if pulse ox is <92% at rest. Problem:Physician Specific Parameters Goal:Patient to maintain parameters within physician-specified ranges throughout certification period Completed Instruct on individual fall risk factors and strategies to prevent falls and injuries caused by falls. Problem:Risk for Falls Goal:Manage Risk for falls Completed SN: Patient instructed on Managing Impaired Functional Mobility: Use assistive device(s): wheelchair Instruct on pain and instruct on strategies to control pain Problem:Pain Goal:Manage Pain Completed patient instructed on techniques to control pain including Non-Pharmacological measures; rest, positioning/elevation and mobility/therapeutic exercise. Define patient s appetite/hydration status and implement strategies to improve compliance with prescribed diet and/or healthy nutrition. Problem:Nutrition/Hy dration Goal:Manage Nutrition/Hydration Completed reinforced patient on implementing strategies to comply with healthy nutrition and adequate hydration Instruct and educate on knowledge deficits Problem:SN Learning Assessment Goal:Demonstrate understanding of education Completed patient verbalize and/or demonstrate understanding of nursing education completed today. Education methods include: verbal cues. Further education required to improve knowledge and compliance with fall prevention/home safety strategies, gastrointestinal care management, genitourinary care management, integumentary care management, medication management, nutrition and pain management. Catheter- Instruct Patient/Caregiver on use and management of a urinary catheter Description: Urinary catheter is a hancock catheter. Problem:SN Genitourinary disease process Goal:Patient/Caregiv er will verbalize understanding and demonstrate improved management of genitourinary disease/condition. Completed patient instructed on catheter management including: potential complications and actions to take. [facility] Visit Details Visit Type -PT ROUTINE Discipline -Physical Therapy Problems Problem Description Start Date Status Goals Interve ntions Sepsis Disciplines: Skilled Services 07/28/2024 Active 1 goal linked to scheduled/documen josseline intervention 1 goal intervention scheduled/document ed in this visit Physician Specific Parameters Disciplines: Skilled Services 07/28/2024 Active 1 goal linked to scheduled/documen josseline intervention 1 goal intervention scheduled/document ed in this visit Risk for Falls Disciplines: Skilled Services 07/28/2024 Active 1 goal linked to scheduled/documen josseline intervention 1 goal intervention scheduled/document ed in this visit Pain Disciplines: Skilled Services 07/28/2024 Active 1 goal linked to scheduled/documen josseline intervention 1 goal intervention scheduled/document ed in this visit PT Impaired muscle performance and/or ROM Disciplines: PT 07/29/2024 Active 1 goal linked to scheduled/documen josseline intervention 1 goal intervention scheduled/document ed in this visit PT Impaired mobility Disciplines: PT 07/29/2024 Active 1 goal linked to scheduled/documen josseline intervention 1 goal intervention scheduled/document ed in this visit PT Impaired gait Disciplines: PT 07/29/2024 Active 1 goal linked to scheduled/documen josseline intervention 1 goal intervention scheduled/document ed in this visit PT Impaired balance Disciplines: PT 07/29/2024 Active 1 goal linked to scheduled/documen josseline intervention 1 goal intervention scheduled/document ed in this visit PT Learning Assessment Disciplines: PT 07/29/2024 Active 1 goal linked to scheduled/documen josseline intervention 1 goal intervention scheduled/document ed in this visit PT Cardiovascular Disease Disciplines: PT 07/29/2024 Active 1 goal linked to scheduled/documen josseline intervention 1 goal intervention scheduled/document ed in this visit Goals Goal Associated Problem Outcome Goal Met? Visit Notes Patient/caregiver will be able to identify and report symptoms of sepsis Description: Patient/caregiver will be able to identify signs/symptoms of sepsis infection and will verbalize actions to take if suspected by 09/25/24. Sepsis No Patient to maintain parameters within physician-specified ranges throughout certification period Physician Specific Parameters No Manage Risk for falls Description: Patient/caregiver will verbalize knowledge of individualized fall prevention strategies by 09/25/24. Risk for Falls No Manage Pain Description: Patient/caregiver will verbalize knowledge and understanding of appropriate techniques to control pain, including pain medication and non-pharmacological techniques. Patient will verbalize or demonstrate an acceptable level of pain as evidenced by a pain score of 2/10 and improvement in ability to perform activities of daily living to be achieved by 09/25/24. Pain No Improved Muscle Performance and/or ROM Description: LTG: Patient will demonstrate improved muscle performance to meet functional goals as evidenced by improved 30 second chair rise score to 5, to be achieved by 08/26/24. LTG: Patient and/or caregiver will verbalize/demonstrate independence with home exercise program, to improve functional mobility, to be achieved by 08/26/24. PT Impaired muscle performance and/or ROM No Improved Transfers Description: STG: Patient will demonstrate safe transfers to/from bed and wheelchair independently, to be achieved by 08/12/24. PT Impaired mobility No Improved Gait Description: STG: Patient will demonstrate improved gait ability as evidenced by ambulation 80 feet with front wheeled walker with supervision,, to be achieved by 08/12/24 LTG: Patient will demonstrate improved gait ability as evidenced by ambulation 125 feet with front wheeled walker with supervision, , to be achieved by 08/26/24. PT Impaired gait No Improved Balance Description: LTG: Patient will demonstrate improved standing balance to meet functional goals as evidenced by patient reporting no falls to be achieved by 08/26/24. PT Impaired balance No Demonstrate understanding of education Description: Patient and/or caregiver will understand educational instruction to be achieved by 09/25/24. PT Learning Assessment No Manage Secondary Cardiovascular disease Description: Improve patient and/or caregiver understanding of secondary cardiovascular disease management as evidenced by patient and/or caregiver able to verbalize, demonstrate, and teach back instruction, to be achieved by 09/25/24. PT Cardiovascular Disease No Interventions Intervention Associated Problem/Goal Status Variance Visit Notes Risk of Sepsis Description: Patient is at risk for sepsis. Monitor closely for s/s of sepsis. Problem:Sepsis Goal:Patient/caregive r will be able to identify and report symptoms of sepsis Completed SPO2 Description: Notify Dr. Ignacio GOEL if pulse ox is <92% at rest. Problem:Physician Specific Parameters Goal:Patient to maintain parameters within physician-specified ranges throughout certification period Completed Instruct on individual fall risk factors and strategies to prevent falls and injuries caused by falls. Problem:Risk for Falls Goal:Manage Risk for falls Completed PT: Patient instructed on Eliminating Environmental Hazards: Keep pathways clear, Remove unsafe rugs, Move furniture from pathways, Keep rooms and walkways well lit and Install hand rails/grab bars Managing Impaired Functional Mobility: Use assistive device(s): wheelchair Managing Pain Instruct on pain and instruct on strategies to control pain Problem:Pain Goal:Manage Pain Completed patient instructed on techniques to control pain including Pharmacological measures and Non-Pharmacological measures; rest, positioning/elevation and mobility/therapeutic exercise. Physical Therapy Therapeutic Exercises Problem:PT Impaired muscle performance and/or ROM Goal:Improved Muscle Performance and/or ROM Completed patient instructed on strengthening exercises including seated faq, hip flexion, heel toe raises. standing hip flexion and 1/4 squats x's 10 each with verbal and visual cues for form and pace. patient instructed to perform home exercise program twice a day which included above ex. Physical Therapy Transfer Training Problem:PT Impaired mobility Goal:Improved Transfers Completed Transfer training and instruction to patient on safe transfers to and from bed and wheelchair with supervision and verbal cues for safety Physical Therapy Gait Training Problem:PT Impaired gait Goal:Improved Gait Completed Gait training and instruction to patient on safe ambulation with front wheeled walker for 50' x 2 feet with contact guard assist, and close w/c follow with verbal cues for corrections of gait deviations including pacing, posture and ataxia . Physical Therapy Balance Training Problem:PT Impaired balance Goal:Improved Balance Completed Developed, implemented, and instructed patient on standing balance exercises including static standing at counter , focusing first on posture and COG . Instruct and educate on knowledge deficits Problem:PT Learning Assessment Goal:Demonstrate understanding of education Completed patient verbalize and/or demonstrate understanding of physical therapy education including fall prevention strategies, home safety, functional activity and home exercise program. Education methods include: verbal cues and written instructions. Further education required to improve knowledge and compliance with fall prevention strategies, home safety, functional activity and home exercise program. Instruct on signs, symptoms, and management of secondary cardiovascular disease Problem:PT Cardiovascular Disease Goal:Manage Secondary Cardiovascular disease Completed Instructed patient on exercise and activity guidelines. [facility] Visit Details Visit Type -[place] ROUTINE Discipline -Occupational Therapy Problems Problem Description Start Date Status Goals Interve ntions Medication Education Disciplines: Skilled Services 07/28/2024 Active 1 goal linked to scheduled/document ed intervention 1 goal intervention scheduled/documente d in this visit Sepsis Disciplines: Skilled Services 07/28/2024 Active 1 goal linked to scheduled/document ed intervention 1 goal intervention scheduled/documente d in this visit Physician Specific Parameters Disciplines: Skilled Services 07/28/2024 Active 1 goal linked to scheduled/document ed intervention 1 goal intervention scheduled/documente d in this visit Risk for Falls Disciplines: Skilled Services 07/28/2024 Active 1 goal linked to scheduled/document ed intervention 1 goal intervention scheduled/documente d in this visit Pain Disciplines: Skilled Services 07/28/2024 Active 1 goal linked to scheduled/document ed intervention 1 goal intervention scheduled/documente d in this visit Discharge Disciplines: Skilled Services 07/28/2024 Active 1 goal linked to scheduled/document ed intervention 1 goal intervention scheduled/documente d in this visit OT Learning Assessment Disciplines: OT 07/31/2024 Active 1 goal linked to scheduled/document ed intervention 1 goal intervention scheduled/documente d in this visit OT ADLs/IADLs Disciplines: OT 07/31/2024 Active 1 goal linked to scheduled/document ed intervention 1 goal intervention scheduled/documente d in this visit OT Functional Transfers Disciplines: OT 07/31/2024 Active 1 goal linked to scheduled/document ed intervention 1 goal intervention scheduled/documente d in this visit Goals Goal Associated Problem Outcome Goal Met? Visit Notes Patient/caregiver will demonstrate ability to obtain, store, identify and administer ordered medications, keep accurate medication list in home, and adhere to medication schedule Description: Patient/caregiver will demonstrate ability to obtain, store, identify and administer ordered medications, keep accurate medication list in home, and adhere to medication schedule by 09/25/24. Medication Education No Patient/caregiver will be able to identify and report symptoms of sepsis Description: Patient/caregiver will be able to identify signs/symptoms of sepsis infection and will verbalize actions to take if suspected by 09/25/24. Sepsis No Patient to maintain parameters within physician-specified ranges throughout certification period Physician Specific Parameters No Manage Risk for falls Description: Patient/caregiver will verbalize knowledge of individualized fall prevention strategies by 09/25/24. Risk for Falls No Manage Pain Description: Patient/caregiver will verbalize knowledge and understanding of appropriate techniques to control pain, including pain medication and non-pharmacological techniques. Patient will verbalize or demonstrate an acceptable level of pain as evidenced by a pain score of 2/10 and improvement in ability to perform activities of daily living to be achieved by 09/25/24. Pain No Manage discharge planning Description: Patient/caregiver will verbalize understanding of ongoing discharge plan provided related to disease management, arrangements for outpatient and/or community services, obtaining medications, supplies, and DME, as needed throughout certification period. Discharge No Demonstrate understanding of education Description: Patient and/or caregiver will understand educational instruction to be achieved by 08/26/24. OT Learning Assessment No Improved ADLs/IADLs performance Description: patient will verbalize understanding of instructions and demonstrate improved performance of lower body dressing, bathing, toileting, meal prep and homemaking to independence as evidenced by improved R[place]a ADL Index score to at least 80/100 to be achieved by 08/26/24. OT ADLs/IADLs No Improved Functional Transfers Description: patient will demonstrate safe transfers to/from toilet and shower/tub with independent assistance and no verbal cues with use of DME to be achieved by 08/26/24. OT Functional Transfers No Interventions Intervention Associated Problem/Goal Status Variance Visit Notes Medication Education Description: Evaluate/instruct patient/caregiver on obtaining, storing, identifying and administering ordered medications as well as keeping accurate medication list in the home and adhereing to medication schedule Problem:Medication Education Goal:Patient/caregive r will demonstrate ability to obtain, store, identify and administer ordered medications, keep accurate medication list in home, and adhere to medication schedule Completed Patient instructed on importance of keeping accurate medication list in home, need to take up-to-date medication list to all medical provider appointments and adhering to medication schedule. Risk of Sepsis Description: Patient is at risk for sepsis. Monitor closely for s/s of sepsis. Problem:Sepsis Goal:Patient/caregive r will be able to identify and report symptoms of sepsis Completed SPO2 Description: Notify Dr. Ignacio GOEL if pulse ox is <92% at rest. Problem:Physician Specific Parameters Goal:Patient to maintain parameters within physician-specified ranges throughout certification period Completed Instruct on individual fall risk factors and strategies to prevent falls and injuries caused by falls. Problem:Risk for Falls Goal:Manage Risk for falls Completed OT: Patient instructed on Eliminating Environmental Hazards: Keep pathways clear, Keep rooms and walkways well lit, Wear supportive shoes or non-skid socks and Keep frequently used items within reach Managing Pain Instruct on pain and instruct on strategies to control pain Problem:Pain Goal:Manage Pain Completed patient instructed on techniques to control pain including Pharmacological measures and Non-Pharmacological measures; rest and positioning/elevation. Instruct on ongoing discharge plan Problem:Discharge Goal:Manage discharge planning Completed Ongoing Discharge plan: Discharge plan discussed with patient including frequency and duration for home OT and plan for transition to: live independently at home without ongoing services. Instruct and educate on knowledge deficits Problem:OT Learning Assessment Goal:Demonstrate understanding of education Completed Education methods include: verbal cues. Patient/Caregiver require further education to improve knowledge and compliance with cardiac disease management, fall prevention strategies, pain management, home safety, infection control precautions, functional adl/iadl activity, functional transfers, endurance training and discharge planning. ADL/IADLs Training Problem:OT ADLs/IADLs Goal:Improved ADLs/IADLs performance Completed Instruct patient on energy conservation and safety and falls prevention and no adaptive equipment use to facilite improved performance of meal prep, homemaking and kitchen mobility with independence and no verbal cues. Pt. is able to get himself a drink and a snack, is able to use microwave, get into cabinets and fridge/freezer at wheelchair level. Pt. demo good sit balance, no LOB, Pt. demo good safety with kitchen/homemaking tasks. Transfer Training Problem:OT Functional Transfers Goal:Improved Functional Transfers Completed Instruct patient on safe transfers and proper techniques to perform to and from toilet and shower/tub with independent and Supervision for a tub/shower transfer assistance and few verbal cues for safety. education and training on the following adaptive equipment/durable medical equipment:grab bar(s), raised toilet seat and tub transfer bench. Pt. is able to perform toileting transfers/tasks at independent with DME use. Pt. requires Supervision for safety with tub/shower transfers with DME. Educated Pt. to have someone with him until he is not dizzy or is stronger/safer to perform independently, Pt. receptive. [facility] Visit Details Visit Type -SN ROUTINE Discipline -[facility] Problems Problem Description Start Date Status Goals Interve ntions Medication Education Disciplines: Skilled Services 07/28/2024 Active 1 goal linked to scheduled/documente d intervention 1 goal intervention scheduled/documente d in this visit Sepsis Disciplines: Skilled Services 07/28/2024 Active 1 goal linked to scheduled/documente d intervention 1 goal intervention scheduled/documente d in this visit Physician Specific Parameters Disciplines: Skilled Services 07/28/2024 Active 1 goal linked to scheduled/documente d intervention 1 goal intervention scheduled/documente d in this visit Risk for Falls Disciplines: Skilled Services 07/28/2024 Active 1 goal linked to scheduled/documente d intervention 1 goal intervention scheduled/documente d in this visit Pain Disciplines: Skilled Services 07/28/2024 Active 1 goal linked to scheduled/documente d intervention 1 goal intervention scheduled/documente d in this visit Nutrition/Hydra tion Disciplines: Skilled Services 07/28/2024 Active 1 goal linked to scheduled/documente d intervention 1 goal intervention scheduled/documente d in this visit SN Learning Assessment Disciplines: SN 07/28/2024 Active 1 goal linked to scheduled/documente d intervention 1 goal intervention scheduled/documente d in this visit Goals Goal Associated Problem Outcome Goal Met? Visit Notes Patient/caregiver will demonstrate ability to obtain, store, identify and administer ordered medications, keep accurate medication list in home, and adhere to medication schedule Description: Patient/caregiver will demonstrate ability to obtain, store, identify and administer ordered medications, keep accurate medication list in home, and adhere to medication schedule by 09/25/24. Medication Education No Patient/caregiver will be able to identify and report symptoms of sepsis Description: Patient/caregiver will be able to identify signs/symptoms of sepsis infection and will verbalize actions to take if suspected by 09/25/24. Sepsis No Patient to maintain parameters within physician-specified ranges throughout certification period Physician Specific Parameters No Manage Risk for falls Description: Patient/caregiver will verbalize knowledge of individualized fall prevention strategies by 09/25/24. Risk for Falls No Manage Pain Description: Patient/caregiver will verbalize knowledge and understanding of appropriate techniques to control pain, including pain medication and non-pharmacological techniques. Patient will verbalize or demonstrate an acceptable level of pain as evidenced by a pain score of 2/10 and improvement in ability to perform activities of daily living to be achieved by 09/25/24. Pain No Manage Nutrition/Hydration Description: Patient/caregiver will verbalize/demonstrate knowledge of prescribed diet and/or healthy nutrition to be achieved by 09/25/24. Nutrition/Hydration No Demonstrate understanding of education Description: Patient and/or caregiver will verbalize understanding of educational instruction provided throughout certification period. SN Learning Assessment No Interventions Intervention Associated Problem/Goal Status Variance Visit Notes Medication Education Description: Evaluate/instruct patient/caregiver on obtaining, storing, identifying and administering ordered medications as well as keeping accurate medication list in the home and adhereing to medication schedule Problem:Medication Education Goal:Patient/caregive r will demonstrate ability to obtain, store, identify and administer ordered medications, keep accurate medication list in home, and adhere to medication schedule Completed Patient instructed on adhering to medication schedule and med media planner / buyer set up. Risk of Sepsis Description: Patient is at risk for sepsis. Monitor closely for s/s of sepsis. Problem:Sepsis Goal:Patient/caregive r will be able to identify and report symptoms of sepsis Completed SPO2 Description: Notify Dr. Ignacio GOEL if pulse ox is <92% at rest. Problem:Physician Specific Parameters Goal:Patient to maintain parameters within physician-specified ranges throughout certification period Completed Instruct on individual fall risk factors and strategies to prevent falls and injuries caused by falls. Problem:Risk for Falls Goal:Manage Risk for falls Completed SN: Patient instructed on Managing Impaired Functional Mobility: Use assistive device(s): wheelchair Instruct on pain and instruct on strategies to control pain Problem:Pain Goal:Manage Pain Completed patient instructed on techniques to control pain including Non-Pharmacological measures; rest, positioning/elevation and mobility/therapeutic exercise. Define patient s appetite/hydration status and implement strategies to improve compliance with prescribed diet and/or healthy nutrition. Problem:Nutrition/Hyd ration Goal:Manage Nutrition/Hydration Completed reinforced patient on implementing strategies to comply with healthy nutrition and adequate hydration Instruct and educate on knowledge deficits Problem:SN Learning Assessment Goal:Demonstrate understanding of education Completed patient verbalize and/or demonstrate understanding of nursing education completed today. Education methods include: verbal cues. Further education required to improve knowledge and compliance with fall prevention/home safety strategies, genitourinary care management, medication management, nutrition and pain management. 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 Visit Notes Patient will maintain adequate hygiene and demonstrate safe ambulation,transfers, positioning. Patient status will be reported to staffing account manager. Patient will be provided with assistance for IADLs. Home Health Aide Care Plan No Interventions Intervention Associated Problem/Goal Status Variance Visit Notes Assist with transfer Description: Assist with transfer pivot. Problem:Home Health Aide Care Plan Goal:Patient will maintain adequate hygiene and demonstrate safe ambulation,transfers, positioning. Patient status will be reported to staffing account manager. Patient will be provided with assistance for IADLs. Completed Completed Assist with dressing/undressing Problem:Home Health Aide Care Plan Goal:Patient will maintain adequate hygiene and demonstrate safe ambulation,transfers, positioning. Patient status will be reported to staffing account manager. Patient will be provided with assistance for IADLs. Completed Completed Bathe patient Description: Bathe patient sponge bath on commode. Problem:Home Health Aide Care Plan Goal:Patient will maintain adequate hygiene and demonstrate safe ambulation,transfers, positioning. Patient status will be reported to staffing account manager. Patient will be provided with assistance for IADLs. Completed Completed documented in this [facility]* Visit Details Visit Type -SN ROUTINE Discipline -[facility] Problems Problem Description Start Date Status Goals Interve ntions Medication Education Disciplines: Skilled Services 07/28/2024 Active 1 goal linked to scheduled/documente d intervention 1 goal intervention scheduled/documente d in this visit Sepsis Disciplines: Skilled Services 07/28/2024 Active 1 goal linked to scheduled/documente d intervention 1 goal intervention scheduled/documente d in this visit Physician Specific Parameters Disciplines: Skilled Services 07/28/2024 Active 1 goal linked to scheduled/documente d intervention 1 goal intervention scheduled/documente d in this visit Risk for Falls Disciplines: Skilled Services 07/28/2024 Active 1 goal linked to scheduled/documente d intervention 1 goal intervention scheduled/documente d in this visit Pain Disciplines: Skilled Services 07/28/2024 Active 1 goal linked to scheduled/documente d intervention 1 goal intervention scheduled/documente d in this visit Nutrition/Hydra tion Disciplines: Skilled Services 07/28/2024 Active 1 goal linked to scheduled/documente d intervention 1 goal intervention scheduled/documente d in this visit Discharge Disciplines: Skilled Services 07/28/2024 Active 1 goal linked to scheduled/documente d intervention 1 goal intervention scheduled/documente d in this visit SN Learning Assessment Disciplines: SN 07/28/2024 Active 1 goal linked to scheduled/documente d intervention 1 goal intervention scheduled/documente d in this visit Goals Goal Associated Problem Outcome Goal Met? Visit Notes Patient/caregiver will demonstrate ability to obtain, store, identify and administer ordered medications, keep accurate medication list in home, and adhere to medication schedule Description: Patient/caregiver will demonstrate ability to obtain, store, identify and administer ordered medications, keep accurate medication list in home, and adhere to medication schedule by 09/25/24. Medication Education No Patient/caregiver will be able to identify and report symptoms of sepsis Description: Patient/caregiver will be able to identify signs/symptoms of sepsis infection and will verbalize actions to take if suspected by 09/25/24. Sepsis No Patient to maintain parameters within physician-specified ranges throughout certification period Physician Specific Parameters No Manage Risk for falls Description: Patient/caregiver will verbalize knowledge of individualized fall prevention strategies by 09/25/24. Risk for Falls No Manage Pain Description: Patient/caregiver will verbalize knowledge and understanding of appropriate techniques to control pain, including pain medication and non-pharmacological techniques. Patient will verbalize or demonstrate an acceptable level of pain as evidenced by a pain score of 2/10 and improvement in ability to perform activities of daily living to be achieved by 09/25/24. Pain No Manage Nutrition/Hydration Description: Patient/caregiver will verbalize/demonstrate knowledge of prescribed diet and/or healthy nutrition to be achieved by 09/25/24. Nutrition/Hydration No Manage discharge planning Description: Patient/caregiver will verbalize understanding of ongoing discharge plan provided related to disease management, arrangements for outpatient and/or community services, obtaining medications, supplies, and DME, as needed throughout certification period. Discharge No Demonstrate understanding of education Description: Patient and/or caregiver will verbalize understanding of educational instruction provided throughout certification period. SN Learning Assessment No Interventions Intervention Associated Problem/Goal Status Variance Visit Notes Medication Education Description: Evaluate/instruct patient/caregiver on obtaining, storing, identifying and administering ordered medications as well as keeping accurate medication list in the home and adhereing to medication schedule Problem:Medication Education Goal:Patient/caregive r will demonstrate ability to obtain, store, identify and administer ordered medications, keep accurate medication list in home, and adhere to medication schedule Completed Patient instructed on adhering to medication schedule, med media planner / buyer set up and med diary and reminders. Risk of Sepsis Description: Patient is at risk for sepsis. Monitor closely for s/s of sepsis. Problem:Sepsis Goal:Patient/caregive r will be able to identify and report symptoms of sepsis Completed SPO2 Description: Notify Dr. Ignacio GOEL if pulse ox is <92% at rest. Problem:Physician Specific Parameters Goal:Patient to maintain parameters within physician-specified ranges throughout certification period Completed Instruct on individual fall risk factors and strategies to prevent falls and injuries caused by falls. Problem:Risk for Falls Goal:Manage Risk for falls Completed SN: Patient instructed on Managing Impaired Functional Mobility: Use assistive device(s): wheelchair Instruct on pain and instruct on strategies to control pain Problem:Pain Goal:Manage Pain Completed patient instructed on techniques to control pain including Non-Pharmacological measures; rest, positioning/elevation and mobility/therapeutic exercise. Define patient s appetite/hydration status and implement strategies to improve compliance with prescribed diet and/or healthy nutrition. Problem:Nutrition/Hyd ration Goal:Manage Nutrition/Hydration Completed reinforced patient on implementing strategies to comply with healthy nutrition and adequate hydration Instruct on importance of follow-up appts and continued monitoring with medical provider &/or chronic care clinic Problem:Discharge Goal:Manage discharge planning Completed Education provided on importance of compliance with follow-up appointment(s). Recommendations: appointment scheduled for 09/11 with urolgy Instruct and educate on knowledge deficits Problem:SN Learning Assessment Goal:Demonstrate understanding of education Completed patient verbalize and/or demonstrate understanding of nursing education completed today. Education methods include: verbal cues and written instructions. Further education required to improve knowledge and compliance with fall prevention/home safety strategies, genitourinary care management, medication management, nutrition and pain management. [facility] Visit Details Visit Type -PT DISC DC W VIS IT Discipline -Physical Therapy Problems Problem Description Start Date Status Goals Interve ntions Medication Education Disciplines: Skilled Services 07/28/2024 Active 1 goal linked to scheduled/docume nted intervention 1 goal intervention scheduled/documen josseline in this visit Sepsis Disciplines: Skilled Services 07/28/2024 Active 1 goal linked to scheduled/docume nted intervention 1 goal intervention scheduled/documen josseline in this visit Physician Specific Parameters Disciplines: Skilled Services 07/28/2024 Active 1 goal linked to scheduled/docume nted intervention 1 goal intervention scheduled/documen josseline in this visit Risk for Falls Disciplines: Skilled Services 07/28/2024 Active 1 goal linked to scheduled/docume nted intervention 1 goal intervention scheduled/documen josseline in this visit Pain Disciplines: Skilled Services 07/28/2024 Active 1 goal linked to scheduled/docume nted intervention 1 goal intervention scheduled/documen josseline in this visit Discharge Disciplines: Skilled Services 07/28/2024 Active 1 goal linked to scheduled/docume nted intervention 1 goal intervention scheduled/documen josseline in this visit PT Impaired muscle performance and/or ROM Disciplines: PT 07/29/2024 Resolved on 08/24/2024 1 goal linked to scheduled/docume nted intervention 1 goal intervention scheduled/documen josseline in this visit PT Impaired mobility Disciplines: PT 07/29/2024 Resolved on 08/24/2024 1 goal linked to scheduled/docume nted intervention 1 goal intervention scheduled/documen josseline in this visit PT Impaired gait Disciplines: PT 07/29/2024 Resolved on 08/24/2024 1 goal linked to scheduled/docume nted intervention 1 goal intervention scheduled/documen josseline in this visit PT Impaired balance Disciplines: PT 07/29/2024 Resolved on 08/24/2024 1 goal linked to scheduled/docume nted intervention 1 goal intervention scheduled/documen josseline in this visit PT Learning Assessment Disciplines: PT 07/29/2024 Resolved on 08/24/2024 1 goal linked to scheduled/docume nted intervention 1 goal intervention scheduled/documen josseline in this visit PT Cardiovascular Disease Disciplines: PT 07/29/2024 Resolved on 08/24/2024 1 goal linked to scheduled/docume nted intervention Goals Goal Associated Problem Outcome Goal Met? Visit Notes Patient/caregiver will demonstrate ability to obtain, store, identify and administer ordered medications, keep accurate medication list in home, and adhere to medication schedule Description: Patient/caregiver will demonstrate ability to obtain, store, identify and administer ordered medications, keep accurate medication list in home, and adhere to medication schedule by 09/25/24. Medication Education No Patient/caregiver will be able to identify and report symptoms of sepsis Description: Patient/caregiver will be able to identify signs/symptoms of sepsis infection and will verbalize actions to take if suspected by 09/25/24. Sepsis No Patient to maintain parameters within physician-specified ranges throughout certification period Physician Specific Parameters No Manage Risk for falls Description: Patient/caregiver will verbalize knowledge of individualized fall prevention strategies by 09/25/24. Risk for Falls No Manage Pain Description: Patient/caregiver will verbalize knowledge and understanding of appropriate techniques to control pain, including pain medication and non-pharmacological techniques. Patient will verbalize or demonstrate an acceptable level of pain as evidenced by a pain score of 2/10 and improvement in ability to perform activities of daily living to be achieved by 09/25/24. Pain No Manage discharge planning Description: Patient/caregiver will verbalize understanding of ongoing discharge plan provided related to disease management, arrangements for outpatient and/or community services, obtaining medications, supplies, and DME, as needed throughout certification period. Discharge No Improved Muscle Performance and/or ROM Description: LTG: Patient will demonstrate improved muscle performance to meet functional goals as evidenced by improved 30 second chair rise score to 5, to be achieved by 08/26/24. LTG: Patient and/or caregiver will verbalize/demonstrate independence with home exercise program, to improve functional mobility, to be achieved by 08/26/24. PT Impaired muscle performance and/or ROM Completed Yes Goal Met Improved Transfers Description: STG: Patient will demonstrate safe transfers to/from bed and wheelchair independently, to be achieved by 08/12/24. PT Impaired mobility Completed Yes Goal Met Improved Gait Description: STG: Patient will demonstrate improved gait ability as evidenced by ambulation 80 feet with front wheeled walker with supervision,, to be achieved by 08/12/24 LTG: Patient will demonstrate improved gait ability as evidenced by ambulation 125 feet with front wheeled walker with supervision, , to be achieved by 08/26/24. PT Impaired gait Completed Yes Goal Met Improved Balance Description: LTG: Patient will demonstrate improved standing balance to meet functional goals as evidenced by patient reporting no falls to be achieved by 08/26/24. PT Impaired balance Completed Yes Goal Met Demonstrate understanding of education Description: Patient and/or caregiver will understand educational instruction to be achieved by 09/25/24. PT Learning Assessment Completed Yes Goal Met Manage Secondary Cardiovascular disease Description: Improve patient and/or caregiver understanding of secondary cardiovascular disease management as evidenced by patient and/or caregiver able to verbalize, demonstrate, and teach back instruction, to be achieved by 09/25/24. PT Cardiovascular Disease Completed Yes Goal Met Interventions Intervention Associated Problem/Goal Status Variance Visit Notes Medication Education Description: Evaluate/instruct patient/caregiver on obtaining, storing, identifying and administering ordered medications as well as keeping accurate medication list in the home and adhereing to medication schedule Problem:Medication Education Goal:Patient/caregive r will demonstrate ability to obtain, store, identify and administer ordered medications, keep accurate medication list in home, and adhere to medication schedule Completed Patient instructed on importance of keeping accurate medication list in home. Risk of Sepsis Description: Patient is at risk for sepsis. Monitor closely for s/s of sepsis. Problem:Sepsis Goal:Patient/caregive r will be able to identify and report symptoms of sepsis Completed SPO2 Description: Notify Dr. Ignacio GOEL if pulse ox is <92% at rest. Problem:Physician Specific Parameters Goal:Patient to maintain parameters within physician-specified ranges throughout certification period Completed Instruct on individual fall risk factors and strategies to prevent falls and injuries caused by falls. Problem:Risk for Falls Goal:Manage Risk for falls Completed PT: Patient instructed on Managing Pain Instruct on pain and instruct on strategies to control pain Problem:Pain Goal:Manage Pain Completed patient instructed on techniques to control pain including Non-Pharmacological measures; rest, positioning/elevation and mobility/therapeutic exercise. Instruct on ongoing discharge plan Problem:Discharge Goal:Manage discharge planning Completed Ongoing Discharge plan: Discharge plan discussed with patient including frequency and duration for home PT and plan for transition to: outpatient therapy. Physical Therapy Therapeutic Exercises Problem:PT Impaired muscle performance and/or ROM Goal:Improved Muscle Performance and/or ROM Completed patient instructed on strengthening and range of motion exercises including sit to stands, reviewed seated HEP including marching, knee extension with verbal cues for sequence. patient instructed to perform home exercise program twice a day Physical Therapy Transfer Training Problem:PT Impaired mobility Goal:Improved Transfers Completed Transfer training and instruction to patient on safe transfers to and from bed and wheelchair with independent Physical Therapy Gait Training Problem:PT Impaired gait Goal:Improved Gait Completed Gait training and instruction to patient on safe ambulation with front wheeled walker for 170 feet with contact guard assist, with verbal cues for corrections of gait deviations including decreased knee extension during stance phase bilat. Physical Therapy Balance Training Problem:PT Impaired balance Goal:Improved Balance Completed Developed, implemented, and instructed patient on standing balance exercises including standing at the counter. Instruct and educate on knowledge deficits Problem:PT Learning Assessment Goal:Demonstrate understanding of education Completed patient verbalize and/or demonstrate understanding of physical therapy education including fall prevention strategies, home safety, functional activity and home exercise program. Education methods include: verbal cues. Further education required to improve knowledge and compliance with fall prevention strategies, home safety, functional activity and home exercise program. [facility] Visit Details Visit Type -OT DISC DC W VIS IT Discipline -Occupational Therapy Problems Problem Description Start Date Status Goals Interve ntions Medication Education Disciplines: Skilled Services 07/28/2024 Active 1 goal linked to scheduled/documen josseline intervention 1 goal intervention scheduled/document ed in this visit Sepsis Disciplines: Skilled Services 07/28/2024 Active 1 goal linked to scheduled/documen josseline intervention 1 goal intervention scheduled/document ed in this visit Physician Specific Parameters Disciplines: Skilled Services 07/28/2024 Active 1 goal linked to scheduled/documen josseline intervention 1 goal intervention scheduled/document ed in this visit Risk for Falls Disciplines: Skilled Services 07/28/2024 Active 1 goal linked to scheduled/documen josseline intervention 1 goal intervention scheduled/document ed in this visit Pain Disciplines: Skilled Services 07/28/2024 Active 1 goal linked to scheduled/documen josseline intervention 1 goal intervention scheduled/document ed in this visit Discharge Disciplines: Skilled Services 07/28/2024 Active 1 goal linked to scheduled/documen josseline intervention 1 goal intervention scheduled/document ed in this visit OT Learning Assessment Disciplines: OT 07/31/2024 Resolved on 08/25/2024 1 goal linked to scheduled/documen josseline intervention 1 goal intervention scheduled/document ed in this visit OT ADLs/IADLs Disciplines: OT 07/31/2024 Resolved on 08/25/2024 1 goal linked to scheduled/documen josseline intervention 1 goal intervention scheduled/document ed in this visit OT Functional Transfers Disciplines: OT 07/31/2024 Resolved on 08/25/2024 1 goal linked to scheduled/documen josseline intervention 1 goal intervention scheduled/document ed in this visit Goals Goal Associated Problem Outcome Goal Met? Visit Notes Patient/caregiver will demonstrate ability to obtain, store, identify and administer ordered medications, keep accurate medication list in home, and adhere to medication schedule Description: Patient/caregiver will demonstrate ability to obtain, store, identify and administer ordered medications, keep accurate medication list in home, and adhere to medication schedule by 09/25/24. Medication Education No Patient/caregiver will be able to identify and report symptoms of sepsis Description: Patient/caregiver will be able to identify signs/symptoms of sepsis infection and will verbalize actions to take if suspected by 09/25/24. Sepsis No Patient to maintain parameters within physician-specified ranges throughout certification period Physician Specific Parameters No Manage Risk for falls Description: Patient/caregiver will verbalize knowledge of individualized fall prevention strategies by 09/25/24. Risk for Falls No Manage Pain Description: Patient/caregiver will verbalize knowledge and understanding of appropriate techniques to control pain, including pain medication and non-pharmacological techniques. Patient will verbalize or demonstrate an acceptable level of pain as evidenced by a pain score of 2/10 and improvement in ability to perform activities of daily living to be achieved by 09/25/24. Pain No Manage discharge planning Description: Patient/caregiver will verbalize understanding of ongoing discharge plan provided related to disease management, arrangements for outpatient and/or community services, obtaining medications, supplies, and DME, as needed throughout certification period. Discharge No Demonstrate understanding of education Description: Patient and/or caregiver will understand educational instruction to be achieved by 08/26/24. OT Learning Assessment Completed Yes Improved ADLs/IADLs performance Description: patient will verbalize understanding of instructions and demonstrate improved performance of lower body dressing, bathing, toileting, meal prep and homemaking to independence as evidenced by improved Raysa ADL Index score to at least 80/100 to be achieved by 08/26/24. OT ADLs/IADLs Appropriate For Discharge Yes Improved Functional Transfers Description: patient will demonstrate safe transfers to/from toilet and shower/tub with independent assistance and no verbal cues with use of DME to be achieved by 08/26/24. OT Functional Transfers Appropriate For Discharge Yes Interventions Intervention Associated Problem/Goal Status Variance Visit Notes Medication Education Description: Evaluate/instruct patient/caregiver on obtaining, storing, identifying and administering ordered medications as well as keeping accurate medication list in the home and adhereing to medication schedule Problem:Medication Education Goal:Patient/caregive r will demonstrate ability to obtain, store, identify and administer ordered medications, keep accurate medication list in home, and adhere to medication schedule Completed Patient instructed on importance of keeping accurate medication list in home and adhering to medication schedule. Risk of Sepsis Description: Patient is at risk for sepsis. Monitor closely for s/s of sepsis. Problem:Sepsis Goal:Patient/caregive r will be able to identify and report symptoms of sepsis Completed SPO2 Description: Notify Dr. Ignacio GOEL if pulse ox is <92% at rest. Problem:Physician Specific Parameters Goal:Patient to maintain parameters within physician-specified ranges throughout certification period Completed Instruct on individual fall risk factors and strategies to prevent falls and injuries caused by falls. Problem:Risk for Falls Goal:Manage Risk for falls Completed OT: Patient instructed on Eliminating Environmental Hazards: Keep pathways clear, Keep rooms and walkways well lit and Keep frequently used items within reach Instruct on pain and instruct on strategies to control pain Problem:Pain Goal:Manage Pain Completed patient instructed on techniques to control pain including Pharmacological measures and Non-Pharmacological measures; rest and positioning/elevation. Instruct on ongoing discharge plan Problem:Discharge Goal:Manage discharge planning Completed Ongoing Discharge plan: Discharge plan discussed with patient including frequency and duration for home OT and plan for transition to: caregiver assistance. Instruct and educate on knowledge deficits Problem:OT Learning Assessment Goal:Demonstrate understanding of education Completed Education methods include: verbal cues and visual cues. Patient/Caregiver has received education to improve knowledge and compliance with fall prevention strategies, pain management, home safety, infection control precautions, functional adl/iadl activity, functional transfers and discharge planning. ADL/IADLs Training Problem:OT ADLs/IADLs Goal:Improved ADLs/IADLs performance Completed Pt has good and bad days with dizziness. When he has his meclazine, he is able to perform ADL tasks at an Indep level. When his dizziness increases, he requires CGA for standing components of ADL tasks. His level of function in not consistent, but it is not anticipated that further skilled OT services will improve this. Pt was educated on importance of keeping medications stocked. He has been educated on falls prevention strategies for when the dizziness is bad. Pt is currently Indep with grooming, UB dressing, and feeding. He is sup for LB dressing, toileting, and bathing in the shower. Transfer Training Problem:OT Functional Transfers Goal:Improved Functional Transfers Completed Instruct patient on safe transfers and proper techniques including lining up w/c close to surface, use of grab bars to perform to and from toilet and shower/tub with Sup assistance and verbal and tactile cues for balance. education and training on the following adaptive equipment/durable medical equipment:grab bar(s) and raised toilet seat. [facility] Visit Details Visit Type -SN ROUTINE Discipline -[facility] Problems Problem Description Start Date Status Goals Interve ntions Medication Education Disciplines: Skilled Services 07/28/2024 Active 1 goal linked to scheduled/documente d intervention 1 goal intervention scheduled/documente d in this visit Sepsis Disciplines: Skilled Services 07/28/2024 Active 1 goal linked to scheduled/documente d intervention 1 goal intervention scheduled/documente d in this visit Physician Specific Parameters Disciplines: Skilled Services 07/28/2024 Active 1 goal linked to scheduled/documente d intervention 1 goal intervention scheduled/documente d in this visit Risk for Falls Disciplines: Skilled Services 07/28/2024 Active 1 goal linked to scheduled/documente d intervention 1 goal intervention scheduled/documente d in this visit Nutrition/Hydra tion Disciplines: Skilled Services 07/28/2024 Active 1 goal linked to scheduled/documente d intervention 1 goal intervention scheduled/documente d in this visit SN Learning Assessment Disciplines: SN 07/28/2024 Active 1 goal linked to scheduled/documente d intervention 1 goal intervention scheduled/documente d in this visit Goals Goal Associated Problem Outcome Goal Met? Visit Notes Patient/caregiver will demonstrate ability to obtain, store, identify and administer ordered medications, keep accurate medication list in home, and adhere to medication schedule Description: Patient/caregiver will demonstrate ability to obtain, store, identify and administer ordered medications, keep accurate medication list in home, and adhere to medication schedule by 09/25/24. Medication Education No Patient/caregiver will be able to identify and report symptoms of sepsis Description: Patient/caregiver will be able to identify signs/symptoms of sepsis infection and will verbalize actions to take if suspected by 09/25/24. Sepsis No Patient to maintain parameters within physician-specified ranges throughout certification period Physician Specific Parameters No Manage Risk for falls Description: Patient/caregiver will verbalize knowledge of individualized fall prevention strategies by 09/25/24. Risk for Falls No Manage Nutrition/Hydration Description: Patient/caregiver will verbalize/demonstrate knowledge of prescribed diet and/or healthy nutrition to be achieved by 09/25/24. Nutrition/Hydration No Demonstrate understanding of education Description: Patient and/or caregiver will verbalize understanding of educational instruction provided throughout certification period. SN Learning Assessment No Interventions Intervention Associated Problem/Goal Status Variance Visit Notes Medication Education Description: Evaluate/instruct patient/caregiver on obtaining, storing, identifying and administering ordered medications as well as keeping accurate medication list in the home and adhereing to medication schedule Problem:Medication Education Goal:Patient/caregive r will demonstrate ability to obtain, store, identify and administer ordered medications, keep accurate medication list in home, and adhere to medication schedule Completed Patient instructed on adhering to medication schedule. Risk of Sepsis Description: Patient is at risk for sepsis. Monitor closely for s/s of sepsis. Problem:Sepsis Goal:Patient/caregive r will be able to identify and report symptoms of sepsis Completed SPO2 Description: Notify Dr. Ignacio GOEL if pulse ox is <92% at rest. Problem:Physician Specific Parameters Goal:Patient to maintain parameters within physician-specified ranges throughout certification period Completed Instruct on individual fall risk factors and strategies to prevent falls and injuries caused by falls. Problem:Risk for Falls Goal:Manage Risk for falls Completed SN: Patient instructed on Managing Impaired Functional Mobility: Use assistive device(s): wheelchair Define patient s appetite/hydration status and implement strategies to improve compliance with prescribed diet and/or healthy nutrition. Problem:Nutrition/Hyd ration Goal:Manage Nutrition/Hydration Completed reinforced patient on implementing strategies to comply with healthy nutrition and adequate hydration Instruct and educate on knowledge deficits Problem:SN Learning Assessment Goal:Demonstrate understanding of education Completed patient verbalize and/or demonstrate understanding of nursing education completed today. Education methods include: verbal cues and visual cues. Further education required to improve knowledge and compliance with fall prevention/home safety strategies, genitourinary care management, medication management and nutrition. documented in this [facility]* Visit Details Visit Type -SN ROUTINE Discipline -[facility] Problems Problem Description Start Date Status Goals Interve ntions Medication Education Disciplines: Skilled Services 07/28/2024 Active 1 goal linked to scheduled/documente d intervention 1 goal intervention scheduled/documente d in this visit Sepsis Disciplines: Skilled Services 07/28/2024 Active 1 goal linked to scheduled/documente d intervention 1 goal intervention scheduled/documente d in this visit Physician Specific Parameters Disciplines: Skilled Services 07/28/2024 Active 1 goal linked to scheduled/documente d intervention 1 goal intervention scheduled/documente d in this visit Risk for Falls Disciplines: Skilled Services 07/28/2024 Active 1 goal linked to scheduled/documente d intervention 1 goal intervention scheduled/documente d in this visit SN Learning Assessment Disciplines: SN 07/28/2024 Active 1 goal linked to scheduled/documente d intervention 1 goal intervention scheduled/documente d in this visit Goals Goal Associated Problem Outcome Goal Met? Visit Notes Patient/caregiver will demonstrate ability to obtain, store, identify and administer ordered medications, keep accurate medication list in home, and adhere to medication schedule Description: Patient/caregiver will demonstrate ability to obtain, store, identify and administer ordered medications, keep accurate medication list in home, and adhere to medication schedule by 09/25/24. Medication Education No Patient/caregiver will be able to identify and report symptoms of sepsis Description: Patient/caregiver will be able to identify signs/symptoms of sepsis infection and will verbalize actions to take if suspected by 09/25/24. Sepsis No Patient to maintain parameters within physician-specified ranges throughout certification period Physician Specific Parameters No Manage Risk for falls Description: Patient/caregiver will verbalize knowledge of individualized fall prevention strategies by 09/25/24. Risk for Falls No Demonstrate understanding of education Description: Patient and/or caregiver will verbalize understanding of educational instruction provided throughout certification period. SN Learning Assessment No Interventions Intervention Associated Problem/Goal Status Variance Visit Notes Medication Education Description: Evaluate/instruct patient/caregiver on obtaining, storing, identifying and administering ordered medications as well as keeping accurate medication list in the home and adhereing to medication schedule Problem:Medication Education Goal:Patient/caregive r will demonstrate ability to obtain, store, identify and administer ordered medications, keep accurate medication list in home, and adhere to medication schedule Completed Patient instructed on adhering to medication schedule. Risk of Sepsis Description: Patient is at risk for sepsis. Monitor closely for s/s of sepsis. Problem:Sepsis Goal:Patient/caregive r will be able to identify and report symptoms of sepsis Completed SPO2 Description: Notify Dr. Ignacio GOEL if pulse ox is <92% at rest. Problem:Physician Specific Parameters Goal:Patient to maintain parameters within physician-specified ranges throughout certification period Completed Instruct on individual fall risk factors and strategies to prevent falls and injuries caused by falls. Problem:Risk for Falls Goal:Manage Risk for falls Completed SN: Patient instructed on Managing Impaired Functional Mobility: Use assistive device(s): wheelchair Instruct and educate on knowledge deficits Problem:SN Learning Assessment Goal:Demonstrate understanding of education Completed patient verbalize and/or demonstrate understanding of nursing education completed today. Education methods include: verbal cues. Further education required to improve knowledge and compliance with fall prevention/home safety strategies, genitourinary care management, incision/wound care management, medication management and pain management. [facility] Outpatient Procedure (Routine) - Pending Review Specialty Diagnoses / Procedures Referred By Rajat t Referred To Contact [facility] Diagnoses Pre-op testing Procedures ECG COMPLETE ECG ROUTINE ECG W/LEAST 12 LDS W/I&R Sonia Watts S, FOOD AIDE.DIRECTOR OF TESTING [address] [place] [address] [facility] [address] [place] [address] Referral ID Status Reason Start Date Expiration Date Visits Requested Visits Authorized [id number] Pending Review Auto-Generat ed Referral 02/23/2022 02/23/2023 1 1 [facility] for referral (narrative)* Diagnostic Procedure Only (Routine) - Authorized Specialty Diagnoses / Procedures Referred By Contac t Referred To Contact XR IMAGING Diagnoses Neck pain Numbness and tingling of both upper extremities Procedures XR CERV OTHER 4V AP/LAT/OBL RADEX SPINE CERVICAL 4 OR 5 VIEWS Gracy Sears APRN.CNP [address] [place] [address] Xr Imaging Referral ID Status Reason Start Date Expiration Date Visits Requested Visits Authorized [id number] Authorized Auto-Generat ed Referral 03/19/2022 04/18/2023 1 1 [facility] for referral (narrative)* Diagnostic Procedure Only (Routine) - Pending Review Specialty Diagnoses / Procedures Referred By Contac t Referred To Contact XR IMAGING Diagnoses Pain in right hip Procedures XR HIP GENERAL 3V PELV/AP/LAT RIGHT RADEX HIP UNILATERAL WITH PELVIS 2-3 VIEWS Tiffany Garsia PA-C [id number] [place] [address] Xr Imaging Referral ID Status Reason Start Date Expiration Date Visits Requested Visits Authorized [id number] Pending Review Auto-Generat ed Referral 03/26/2022 04/25/2023 1 1 [facility] for referral (narrative)* Diagnostic Procedure Only (Routine) - Closed Specialty Diagnoses / Procedures Referred By Contac t Referred To Contact XR IMAGING Diagnoses Neck pain Numbness and tingling of both upper extremities Procedures XR CERV OTHER 4V AP/LAT/OBL RADEX SPINE CERVICAL 4 OR 5 VIEWS Gracy Sears, HIRAM.DIRECTOR OF TESTING [address] [place] [address] Xr Imaging Referral ID Status Reason Start Date Expiration Date V isits Requested Visits Authorized [id number] Closed Auto-Generate d Referral 03/19/2022 04/18/2023 1 1 [facility] for referral (narrative)* Diagnostic Procedure Only (Urgent) - Closed Specialty Diagnoses / Procedures Referred By Contac t Referred To Contact MR IMAGING Diagnoses Chronic vertigo Ataxia Fall, subsequent encounter Procedures MRI BRAIN WO/W IVCON MRI BRAIN BRAIN STEM W/O W/CONTRAST MATERIAL Marbella Zaidi PA-C [address] [place] [address] Mr Imaging Referral ID Status Reason Start Date Expiration Date Visits Re quested Visits Authorized [id number] Closed 07/01/2022 07/31/2022 1 1 [facility] for referral (narrative)* Diagnostic Procedure Only (Routine) - Closed Specialty Diagnoses / Procedures Referred By Contac t Referred To Contact XR IMAGING Diagnoses Closed fracture of multiple ribs of left side with routine healing, subsequent encounter Procedures XR RIBS/CHEST 3V AP RIB/OBLS/CXR LEFT RADEX RIBS UNI W/POSTEROANT CH MINIMUM 3 VIEWS Abena Beckford APRN.DIRECTOR OF TESTING [address] [place] [address] Xr Imaging Referral ID Status Reason Start Date Expiration Date V isits Requested Visits Authorized [id number] Closed Auto-Generate d Referral 11/02/2022 12/02/2023 1 1 [facility] for referral (narrative)* Diagnostic Procedure Only (Routine) - Pending Review Specialty Diagnoses / Procedures Referred By Contac t Referred To Contact XR IMAGING Diagnoses 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, subsequent encounter Procedures XR FEMUR GENERAL 2V AP/LAT RIGHT RADIOLOGIC EXAMINATION FEMUR MINIMUM 2 VIEWS Gudelia Samuel MD [address] [place] [address] [place] [id number] Xr Imaging Referral ID Status Reason Start Date Expiration Date Visits Requested Visits Authorized [id number] Pending Review Auto-Generat ed Referral 01/26/2023 02/25/2024 1 1 * Diagnostic Procedure Only (Routine) - Pending Review Specialty Diagnoses / Procedures Referred By Rajat t Referred To Contact XR IMAGING Diagnoses 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, subsequent encounter Procedures XR PELVIS 1V AP RADIOLOGIC EXAMINATION PELVIS 1/2 VIEWS Gudelia Samuel MD [address] [place] [address] Xr Imaging Referral ID Status Reason Start Date Expiration Date Visits Requested Visits Authorized [id number] Pending Review Auto-Generat ed Referral 01/26/2023 02/25/2024 1 1 [facility] for referral (narrative)* Diagnostic Procedure Only (Routine) - Pending Review Specialty Diagnoses / Procedures Referred By Rajat t Referred To Contact XR IMAGING Diagnoses 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, subsequent encounter Procedures XR FEMUR GENERAL 2V AP/LAT RIGHT RADIOLOGIC EXAMINATION FEMUR MINIMUM 2 VIEWS Gudelia Samuel MD [address] [place] [address] Xr Imaging Referral ID Status Reason Start Date Expiration Date Visits Requested Visits Authorized [id number] Pending Review Auto-Generat ed Referral 02/23/2023 03/24/2024 1 1 * Diagnostic Procedure Only (Routine) - Pending Review Specialty Diagnoses / Procedures Referred By Contac t Referred To Contact XR IMAGING Diagnoses 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, subsequent encounter Procedures XR PELVIS 1V AP RADIOLOGIC EXAMINATION PELVIS 1/2 VIEWS Gudelia Samuel MD [address] [place] [address] Xr Imaging Referral ID Status Reason Start Date Expiration Date Visits Requested Visits Authorized [id number] Pending Review Auto-Generat ed Referral 02/23/2023 03/24/2024 1 1 [facility] for referral (narrative)* Diagnostic Procedure Only (Routine) - Pending Review Specialty Diagnoses / Procedures Referred By Contac t Referred To Contact XR IMAGING Diagnoses Dislocation of hip joint prosthesis, subsequent encounter 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, subsequent encounter Procedures XR FEMUR GENERAL 2V AP/LAT RIGHT RADIOLOGIC EXAMINATION FEMUR MINIMUM 2 VIEWS Gudelia Samuel MD [address] [place] [address] Xr Imaging Referral ID Status Reason Start Date Expiration Date Visits Requested Visits Authorized [id number] Pending Review Auto-Generat ed Referral 03/30/2023 04/28/2024 1 1 * Diagnostic Procedure Only (Routine) - Pending Review Specialty Diagnoses / Procedures Referred By Contac t Referred To Contact XR IMAGING Diagnoses Dislocation of hip joint prosthesis, subsequent encounter 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, subsequent encounter Procedures XR PELVIS 1V AP RADIOLOGIC EXAMINATION PELVIS 1/2 VIEWS Gudelia Samuel MD [address] [place] [address] Xr Imaging Referral ID Status Reason Start Date Expiration Date Visits Requested Visits Authorized [id number] Pending Review Auto-Generat ed Referral 03/30/2023 04/28/2024 1 1 [facility] for referral (narrative)* Diagnostic Procedure Only (Routine) - Pending Review Specialty Diagnoses / Procedures Referred By Contac t Referred To Contact XR IMAGING Diagnoses Dislocation of hip joint prosthesis, subsequent encounter 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, subsequent encounter Procedures XR FEMUR GENERAL 2V AP/LAT RIGHT RADIOLOGIC EXAMINATION FEMUR MINIMUM 2 VIEWS Gudelia Samuel MD [address] [place] [address] Xr Imaging Referral ID Status Reason Start Date Expiration Date Visits Requested Visits Authorized [id number] Pending Review Auto-Generat ed Referral 05/11/2023 06/09/2024 1 1 * Diagnostic Procedure Only (Routine) - Pending Review Specialty Diagnoses / Procedures Referred By Contac t Referred To Contact XR IMAGING Diagnoses Dislocation of hip joint prosthesis, subsequent encounter 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, subsequent encounter Procedures XR PELVIS 1V AP RADIOLOGIC EXAMINATION PELVIS 1/2 VIEWS Gudelia Samuel MD [address] [place] [address] Xr Imaging Referral ID Status Reason Start Date Expiration Date Visits Requested Visits Authorized [id number] Pending Review Auto-Generat ed Referral 05/11/2023 06/09/2024 1 1 [facility] for referral (narrative)* Diagnostic Procedure Only (Routine) - Pending Review Specialty Diagnoses / Procedures Referred By Sarahac t Referred To Contact XR IMAGING Diagnoses Dislocation of hip joint prosthesis, subsequent encounter 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, subsequent encounter Procedures XR FEMUR GENERAL 2V AP/LAT RIGHT RADIOLOGIC EXAMINATION FEMUR MINIMUM 2 VIEWS Gudelia Samuel MD [address] [place] [address] [place] [address] Referral ID Status Reason Start Date Expiration Date Visits Requested Visits Authorized [id number] Pending Review Auto-Generat ed Referral 07/06/2023 08/04/2024 1 1 [facility] for referral (narrative)* Diagnostic Procedure Only (Routine) - Authorized Specialty Diagnoses / Procedures Referred By Contac t Referred To Contact US IMAGING Diagnoses Acute cystitis without hematuria Procedures US KIDNEY/BLADDER US RETROPERITONEAL REAL TIME W/IMAGE COMPLETE Abena Beckford APRN.CNP [address] [place] [address] [place] [address] Referral ID Status Reason Start Date Expiration Date Visits Requested Visits Authorized [id number] Authorized Auto-Generat ed Referral 12/29/2023 01/27/2025 1 1 [facility] for referral (narrative)* Diagnostic Procedure Only (Routine) - Closed Specialty Diagnoses / Procedures Referred By Contac t Referred To Contact US IMAGING Diagnoses Acute cystitis without hematuria Procedures US KIDNEY/BLADDER US RETROPERITONEAL REAL TIME W/IMAGE COMPLETE Abena Beckford APRN.CNP [address] [place] [address] [place] [address] Referral ID Status Reason Start Date Expiration Date V isits Requested Visits Authorized [id number] Closed Auto-Generate d Referral 12/29/2023 01/27/2025 1 1 [facility] for referral (narrative)* Outpatient Procedure (Routine) - Pending Review Specialty Diagnoses / Procedures Referred By Contac t Referred To Contact [facility] Diagnoses 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 Overflow incontinence of urine Urinary retention Procedures CYSTO/TRUS ONLY CYSTOURETHROSCOPY US, TRANSRECTAL Bharathi Wiggins APRN.CNP, DNP [address] [place] [address] [id number] [place] [address] Referral ID Status Reason Start Date Expiration Date Visits Requested Visits Authorized [id number] Pending Review Auto-Generat ed Referral 01/31/2024 01/30/2025 1 1 [facility] for referral (narrative)* Outpatient Procedure (Routine) - Authorized Specialty Diagnoses / Procedures Referred By Contac t Referred To Contact [facility] Diagnoses Dizziness Procedures US CAROTID ARTERIES [facility] DUPLEX SCAN EXTRACRANIAL ART COMPL BI STUDY Marbella Zaidi PA-C [address] [place] [address] [facility] [address] [place] [address] Referral ID Status Reason Start Date Expiration Date Visits Requested Visits Authorized [id number] Authorized Auto-Generat ed Referral 04/10/2024 04/10/2025 1 1 [facility] for referral (narrative)* Diagnostic Procedure Only (Routine) - Pending Review Specialty Diagnoses / Procedures Referred By Contac t Referred To Contact US IMAGING Diagnoses Hydronephrosis, unspecified hydronephrosis type BPH with obstruction/lower urinary tract symptoms Urine retention Procedures US KIDNEY/BLADDER US RETROPERITONEAL REAL TIME W/IMAGE COMPLETE Saskia Sears, DIRECTOR OF TESTING [address] [place] [address] [place] [address] Referral ID Status Reason Start Date Expiration Date Visits Requested Visits Authorized [id number] Pending Review Auto-Generat ed Referral 04/19/2024 05/19/2025 1 1 [facility] for referral (narrative)* Diagnostic Procedure Only (Routine) - Closed Specialty Diagnoses / Procedures Referred By Contac t Referred To Contact XR IMAGING Diagnoses Closed fracture of multiple ribs of left side with routine healing, subsequent encounter Procedures XR RIBS/CHEST 3V AP RIB/OBLS/CXR LEFT RADEX RIBS UNI W/POSTEROANT CH MINIMUM 3 VIEWS Abena Beckford APRN.DIRECTOR OF TESTING [address] [place] [address] [place] [address] Referral ID Status Reason Start Date Expiration Date V isits Requested Visits Authorized [id number] Closed Auto-Generate d Referral 11/02/2022 12/02/2023 1 1 [facility] for referral (narrative)* Diagnostic Procedure Only (Routine) - Closed Specialty Diagnoses / Procedures Referred By Contac t Referred To Contact XR IMAGING Diagnoses Pain in joint, multiple sites Procedures XR HAND GENERAL 3V PA/LAT/OBL BILAT X-RAY HAND MINIMUM [address] [place] [address] [place] [address] [place] [address] Referral ID Status Reason Start Date Expiration Date V isits Requested Visits Authorized [id number] Closed Auto-Generate d Referral 09/30/2021 10/30/2022 1 1 [facility] for referral (narrative)* Diagnostic Procedure Only (Routine) - Closed Specialty Diagnoses / Procedures Referred By Contac t Referred To Contact XR IMAGING Diagnoses Chronic pain of both knees Procedures XR KNEE GENERAL 4V AP BOTH/PA BOTH/LAT/MERC BILAT KNEE AP-WGT/LAT/MERCHANT Navin Singh Jr., MD [address] [facility] [address] [place] [address] [place] [address] Referral ID Status Reason Start Date Expiration Date V isits Requested Visits Authorized [id number] Closed Auto-Generate d Referral 07/04/2021 08/03/2022 1 1 * Diagnostic Procedure Only (Routine) - Closed Specialty Diagnoses / Procedures Referred By Contac t Referred To Contact XR IMAGING Diagnoses Hip pain Procedures XR HIP BILAT 5V PEL/AP/LAT EACH HIP RADEX HIPS BILATERAL WITH PELVIS MINIMUM 5 VIEWS Navin Singh Jr., MD [address] [place] [address] [place] [address] Referral ID Status Reason Start Date Expiration Date V isits Requested Visits Authorized [id number] Closed Auto-Generate d Referral 07/04/2021 08/03/2022 1 1 [facility] for visit Narrative* Diagnostic Procedure Only (Routine) - Closed Specialty Diagnoses / Procedures Referred By Contac t Referred To Contact XR IMAGING Diagnoses Neck pain Numbness and tingling of both upper extremities Procedures XR CERV OTHER 4V AP/LAT/OBL RADEX SPINE CERVICAL 4 OR 5 VIEWS Gracy Sears, FOOD AIDE.DIRECTOR OF TESTING [address] [place] [address] Xr Imaging Referral ID Status Reason Start Date Expiration Date V isits Requested Visits Authorized [id number] Closed Auto-Generate d Referral 03/19/2022 04/18/2023 1 1 [facility] for visit Narrative* Diagnostic Procedure Only (Urgent) - Closed Specialty Diagnoses / Procedures Referred By Contac t Referred To Contact MR IMAGING Diagnoses Chronic vertigo Ataxia Fall, subsequent encounter Procedures MRI BRAIN WO/W IVCON MRI BRAIN BRAIN STEM W/O W/CONTRAST MATERIAL Marbella Zaidi PA-C [address] [place] [address] Mr Imaging Referral ID Status Reason Start Date Expiration Date Visits Re quested Visits Authorized [id number] Closed 07/01/2022 07/31/2022 1 1 [facility] for visit Narrative* Diagnostic Procedure Only (Routine) - Closed Specialty Diagnoses / Procedures Referred By Contac t Referred To Contact XR IMAGING Diagnoses Closed fracture of multiple ribs of left side with routine healing, subsequent encounter Procedures XR RIBS/CHEST 3V AP RIB/OBLS/CXR LEFT RADEX RIBS UNI W/POSTEROANT CH MINIMUM 3 VIEWS Abena Beckford, FOOD AIDE.DIRECTOR OF TESTING [address] [place] [address] [place] [address] Referral ID Status Reason Start Date Expiration Date V isits Requested Visits Authorized [id number] Closed Auto-Generate d Referral 11/02/2022 12/02/2023 1 1 [facility] for visit Narrative* Diagnostic Procedure Only (Routine) - Closed Specialty Diagnoses / Procedures Referred By Contac t Referred To Contact XR IMAGING Diagnoses Chronic pain of both knees Procedures XR KNEE GENERAL 4V AP BOTH/PA BOTH/LAT/MERC BILAT KNEE AP-WGT/LAT/MERCHANT Singh, Navin J Jr., MD [address] [place] [address] [place] [address] Referral ID Status Reason Start Date Expiration Date V isits Requested Visits Authorized [id number] Closed Auto-Generate d Referral 07/04/2021 08/03/2022 1 1 [facility] Summary Purpose Family History No Family History Records FoundNo Family History Records FoundNo Family History Records FoundNo Family History Records FoundNo Family History Records FoundNo Family History Records FoundNo Family History Records Found Advance Directives Documents on File Type Date Recorded Patient Manager Of Community Relations Expl anation Advance Directive(s) 12/23/2021 9:11 AM Advance Directive(s) 12/12/2021 10:14 AM Advance Directive(s) 12/09/2021 8:33 AM Advance Directive(s) 11/19/2021 5:14 PM Advance Directive(s) 09/04/2021 7:38 AM Advance Directive(s) 08/21/2021 9:58 AM Advance Directive(s) 04/23/2021 11:56 AM Documents on File Type Date Recorded Patient Manager Of Community Relations Expl anation Advance Directive(s) 12/23/2021 9:11 AM Advance Directive(s) 12/12/2021 10:14 AM Advance Directive(s) 12/09/2021 8:33 AM Advance Directive(s) 11/19/2021 5:14 PM Advance Directive(s) 09/04/2021 7:38 AM Advance Directive(s) 08/21/2021 9:58 AM Advance Directive(s) 04/23/2021 11:56 AM Documents on File Type Date Recorded Patient Manager Of Community Relations Expl anation Advance Directive(s) 03/13/2022 12:11 PM Advance Directive(s) 12/23/2021 9:11 AM Advance Directive(s) 12/12/2021 10:14 AM Advance Directive(s) 12/09/2021 8:33 AM Advance Directive(s) 11/19/2021 5:14 PM Advance Directive(s) 09/04/2021 7:38 AM Advance Directive(s) 08/21/2021 9:58 AM Advance Directive(s) 04/23/2021 11:56 AM Documents on File Type Date Recorded Patient Manager Of Community Relations Expl anation Advance Directive(s) 03/20/2022 6:04 AM Advance Directive(s) 03/13/2022 12:11 PM Advance Directive(s) 12/23/2021 9:11 AM Advance Directive(s) 12/12/2021 10:14 AM Advance Directive(s) 12/09/2021 8:33 AM Advance Directive(s) 11/19/2021 5:14 PM Advance Directive(s) 09/04/2021 7:38 AM Advance Directive(s) 08/21/2021 9:58 AM Advance Directive(s) 04/23/2021 11:56 AM Documents on File Type Date Recorded Patient Manager Of Community Relations Expl anation Advance Directive(s) 03/20/2022 6:04 AM Advance Directive(s) 03/13/2022 12:11 PM Advance Directive(s) 12/23/2021 9:11 AM Advance Directive(s) 12/12/2021 10:14 AM Advance Directive(s) 12/09/2021 8:33 AM Advance Directive(s) 11/19/2021 5:14 PM Advance Directive(s) 09/04/2021 7:38 AM Advance Directive(s) 08/21/2021 9:58 AM Advance Directive(s) 04/23/2021 11:56 AM Documents on File Type Date Recorded Patient Manager Of Community Relations Expl anation Advance Directive(s) 03/31/2022 10:28 AM Advance Directive(s) 03/29/2022 4:37 PM Advance Directive(s) 03/20/2022 6:04 AM Advance Directive(s) 03/13/2022 12:11 PM Advance Directive(s) 12/23/2021 9:11 AM Advance Directive(s) 12/12/2021 10:14 AM Advance Directive(s) 12/09/2021 8:33 AM Advance Directive(s) 11/19/2021 5:14 PM Advance Directive(s) 09/04/2021 7:38 AM Advance Directive(s) 08/21/2021 9:58 AM Advance Directive(s) 04/23/2021 11:56 AM Documents on File Type Date Recorded Patient Manager Of Community Relations Expl anation Advance Directive(s) 03/31/2022 10:28 AM Advance Directive(s) 03/29/2022 4:37 PM Advance Directive(s) 03/20/2022 6:04 AM Advance Directive(s) 03/13/2022 12:11 PM Advance Directive(s) 12/23/2021 9:11 AM Advance Directive(s) 12/12/2021 10:14 AM Advance Directive(s) 12/09/2021 8:33 AM Advance Directive(s) 11/19/2021 5:14 PM Advance Directive(s) 09/04/2021 7:38 AM Advance Directive(s) 08/21/2021 9:58 AM Advance Directive(s) 04/23/2021 11:56 AM Documents on File Type Date Recorded Patient Manager Of Community Relations Expl anation Advance Directive(s) 03/31/2022 10:28 AM Documents on File Type Date Recorded Patient Manager Of Community Relations Expl anation Advance Directive(s) 03/31/2022 10:28 AM Date Activated Date Inactivated Comments 07/28/2024 3:52 PM Date Activated Date Inactivated Comments 07/28/2024 3:52 PM Reason for Referral Specialty Diagnoses / Procedures Referred By Contac t Referred To Contact [facility] Diagnoses Abnormality of gait Neck pain Numbness and tingling of both upper extremities Dizziness Cervical stenosis of spinal canal Procedures CONSULT TO PHYSICAL THERAPY PHYSICAL THERAPY EVALUATION HIGH COMPLEX 45 MINS Gracy Sears, FOOD AIDE.DIRECTOR OF TESTING [address] [place] [address] [facility] [address] [place] [address] Referral ID Status Reason Start Date Expiration Date Visits Requested Visits Authorized [id number] Pending Review Auto-Generat ed Referral 06/18/2022 06/18/2023 1 1 Specialty Diagnoses / Procedures Referred By Contac t Referred To Contact MR IMAGING Diagnoses Spinal stenosis of cervical region Procedures MRI CERVICAL SPINE WO IVCON MRI SPINAL CANAL CERVICAL [place] [address] [place] [address] Mr Imaging Referral ID Status Reason Start Date Expiration Date Visits Requested Visits Authorized [id number] Pending Review Auto-Generat ed Referral 08/10/2022 09/09/2023 1 1 Referral ID Status Reason Start Date Expiration Date V isits Requested Visits Authorized [id number] Closed Auto-Generate d Referral 08/28/2022 09/27/2022 1 1 Specialty Diagnoses / Procedures Referred By Contac t Referred To Contact Endocrinology Diagnoses 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 Low serum follicle stimulating hormone (FSH) Procedures CONSULT TO ENDOCRINOLOGY OFFICE/OUTPATIENT [facility] MDM 60-74 MINUTES Marbella Zaidi PA-C [address] [place] [address] Referral ID Status Reason Start Date Expiration Date Visits Requested Visits Authorized [id number] Pending Review PCP Requested Referral 09/27/2022 09/27/2023 1 1 Specialty Diagnoses / Procedures Referred By Contac t Referred To Contact MR IMAGING Diagnoses Nonintractable headache, unspecified chronicity pattern, unspecified headache type Procedures MRI PITUITARY WO/W IVCON MRI BRAIN BRAIN STEM W/O W/CONTRAST MATERIAL Andra Hough MD [address] [address] Mr Imaging Referral ID Status Reason Start Date Expiration Date Visits Requested Visits Authorized [id number] Pending Review Auto-Generat ed Referral 2 12/05/2023 1 1 Specialty Diagnoses / Procedures Referred By Contac t Referred To Contact Diagnoses 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, subsequent encounter Dislocation of hip joint prosthesis, subsequent encounter Procedures CONSULT TO ORTHOTIC/PROSTHETIC Gudelia Samuel MD [address] [place] [address] Referral ID Status Reason Start Date Expiration Date V isits Requested Visits Authorized [id number] Ref Not Required 03/17/2023 05/16/2023 1 1 Specialty Diagnoses / Procedures Referred By Contac t Referred To Contact XR IMAGING Diagnoses 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, subsequent encounter Procedures XR FEMUR GENERAL 2V AP/LAT RIGHT RADIOLOGIC EXAMINATION FEMUR MINIMUM 2 VIEWS Gudelia Samuel MD [address] [place] [address] Xr Imaging Referral ID Status Reason Start Date Expiration Date Visits Requested Visits Authorized [id number] Pending Review Auto-Generat ed Referral 03/16/2023 04/14/2024 1 1 Specialty Diagnoses / Procedures Referred By Contac t Referred To Contact XR IMAGING Diagnoses 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, subsequent encounter Procedures XR PELVIS 1V AP RADIOLOGIC EXAMINATION PELVIS 1/2 VIEWS Gudelia Samuel MD [address] [place] [address] Xr Imaging Referral ID Status Reason Start Date Expiration Date Visits Requested Visits Authorized [id number] Pending Review Auto-Generat ed Referral 03/16/2023 04/14/2024 1 1 Specialty Diagnoses / Procedures Referred By Contac t Referred To Contact Pain Management Diagnoses S/P total right hip arthroplasty Periprosthetic hip fracture, sequela Post laminectomy syndrome Pain syndrome, chronic Procedures CONSULT TO PAIN MGT OFFICE/OUTPATIENT [facility] MDM 60-74 MINUTES Marbella Zaidi PA-C [address] [place] [address] Referral ID Status Reason Start Date Expiration Date Visits Requested Visits Authorized [id number] Pending Review PCP Requested Referral 06/28/2023 06/27/2024 1 1 Specialty Diagnoses / Procedures Referred By Contac t Referred To Contact CT IMAGING Diagnoses Right flank pain Microscopic hematuria Procedures CT FLANK WO IVCON CT ABD & PELVIS W/O CONTRAST Marbella Zaidi PA-C [address] [place] [address] Ct Imaging Referral ID Status Reason Start Date Expiration Date Visits Requested Visits Authorized [id number] Authorized Auto-Generat ed Referral 07/01/2023 07/30/2024 1 1 Specialty Diagnoses / Procedures Referred By Contac t Referred To Contact [facility] Diagnoses DDD (degenerative disc disease), lumbar Paresthesia of saddle area S/P laminectomy 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 Procedures CONSULT TO PHYSICAL THERAPY PHYSICAL THERAPY EVALUATION HIGH COMPLEX 45 MINS Marbella Zaidi PA-C [address] [place] [address] [facility] [address] [place] [address] Referral ID Status Reason Start Date Expiration Date Visits Requested Visits Authorized [id number] Pending Review Auto-Generat ed Referral 08/16/2023 08/15/2024 1 1 Specialty Diagnoses / Procedures Referred By Contac t Referred To Contact CT IMAGING Diagnoses Right flank pain Microscopic hematuria Procedures CT FLANK WO IVCON CT ABD & PELVIS W/O CONTRAST Marbella Zaidi PA-C [address] [place] [address] Ct [facility] [place] [address] Referral ID Status Reason Start Date Expiration Date V isits Requested Visits Authorized [id number] Closed Auto-Generate d Referral 07/01/2023 07/30/2024 1 1 Specialty Diagnoses / Procedures Referred By Contac t Referred To Contact [facility] Diagnoses Spinal stenosis of lumbar region with neurogenic claudication Myelopathy (HCC) Urinary incontinence, unspecified type Procedures MRI LUMBAR SPINE WO IVCON MRI SPINAL CANAL LUMBAR W/O CONTRAST MATERIAL Gudelia Samuel MD [address] [address] Referral ID Status Reason Start Date Expiration Date Visits Requested Visits Authorized [id number] Waiting for Response Auto-Genera josseline Referral Clearance Not Met - Admin/Chair man/Directo r Advise to Postpone/Re schedule or Not Proceed 3 11/18/2024 1 1 Specialty Diagnoses / Procedures Referred By Contac t Referred To Contact [facility] Diagnoses Spinal stenosis of cervical region Myelopathy (HCC) Urinary incontinence, unspecified type Procedures MRI CERVICAL SPINE WO IVCON MRI SPINAL CANAL CERVICAL W/O CONTRAST PERIL Gudelia Samuel MD [address] [place] [address] [address] Referral ID Status Reason Start Date Expiration Date Visits Requested Visits Authorized [id number] Waiting for Response Auto-Genera [email or web address] Referral Clearance Not Met - Admin/Chair man/Directo r Advise to Postpone/Re schedule or Not Proceed 3 11/18/2024 1 1 Specialty Diagnoses / Procedures Referred By Rajat dhillon Referred To Contact XR IMAGING Diagnoses Dislocation of hip joint prosthesis, subsequent encounter 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, subsequent encounter Procedures XR FEMUR GENERAL 2V AP/LAT RIGHT RADIOLOGIC EXAMINATION FEMUR MINIMUM 2 VIEWS Gudelia Samuel MD [address] [facility] [address] [place] [address] [place] [address] Referral ID Status Reason Start Date Expiration Date Visits Requested Visits Authorized [id number] Pending Review Auto-Generat ed Referral 3 11/17/2024 1 1 Specialty Diagnoses / Procedures Referred By Rajat dhillon Referred To Contact Urology Diagnoses Urinary retention Hydronephrosis, unspecified hydronephrosis type Procedures CONSULT TO UROLOGY OFFICE/OUTPATIENT [facility] 60 MINUTES Navin Ackerman MD [address] [place] [address] Referral ID Status Reason Start Date Expiration Date Visits Requested Visits Authorized [id number] Authorized PCP Requested Referral 12/31/2023 12/30/2024 1 1 Specialty Diagnoses / Procedures Referred By Rajat dhillon Referred To Contact Diagnoses Hypogonadism in male Marbella Zaidi PA-C [address] [place] [address] Referral ID Status Reason Start Date Expiration Date V isits Requested Visits Authorized [id number] Pending Review 1 1 Specialty Diagnoses / Procedures Referred By Rajat dhillon Referred To Contact Diagnoses 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 Chronic vertigo DDD (degenerative disc disease), lumbar Intractable low back pain MGUS (monoclonal gammopathy of unknown significance) Frailty Paresthesia of saddle area Neurogenic claudication Periprosthetic fracture around internal prosthetic right hip joint, subsequent encounter Status post hip replacement, unspecified laterality S/P laminectomy Status post replacement of right shoulder joint Waldenstrom macroglobulinemia (HCC) Procedures CONSULT TO [facility] Marbella Zaidi PA-C [address] [place] [address] [facility] [address] [place] [address] Referral ID Status Reason Start Date Expiration Date V isits Requested Visits Authorized [id number] Denied PCP Requested Referral 02/08/2024 05/08/2024 1 0 Health Concerns Infection Onset Date Last Indicated Resolved Time COVID-19 Rule-Out 11/11/2022 11/11/2022 11/11/2022 10:11 PM EST Infection Onset Date Last Indicated Resolved Time COVID-19 Rule-Out 01/08/2023 01/08/2023 01/08/2023 5:43 AM EST COVID-19 Rule-Out 01/14/2023 01/14/2023 01/14/2023 12:17 PM EST Additional Source Comments (unrecognized sect ion and content) No Status Records FoundNo Status Records FoundNo Status Records FoundNo Status Records FoundNo Status Records FoundNo Status Records FoundNo Status Records Found INFORMATION SOURCE (unrecogn ized section and content) DATE CREATED AUTHOR 02/17/2019 [facility] DATE CREATED AUTHOR AUTHOR'S ORGANIZ ATION 03/27/2022 [facility] DATE CREATED AUTHOR AUTHOR'S ORGANIZ ATION 11/20/2022 [facility] DATE CREATED AUTHOR AUTHOR'S ORGANIZ ATION 12/09/2022 [facility] DATE CREATED AUTHOR AUTHOR'S ORGANIZ ATION 01/01/2024 [facility] DATE CREATED AUTHOR AUTHOR'S ORGANIZ ATION 08/10/2024 [facility] DATE CREATED AUTHOR AUTHOR'S ORGANIZ ATION 09/09/2024 [facility] Source Comments (unrecognize d section and content) In the event this informatio n is protected by the Federal Confidentiality of Alcohol and Drug Abuse Patient Records regulations: The Federal rules restrict any use of the information to criminally investigate or prosecute any alcohol or drug abuse patient.[facility] the event this information is protected by the Federal Confidentiality of Alcohol and Drug Abuse Patient Records regulations: The Federal rules restrict any use of the information to criminally investigate or prosecute any alcohol or drug abuse patient.[facility] HospitalIn the event this information is protected by the Federal Confidentiality of Alcohol and Drug Abuse Patient Records regulations: The Federal rules restrict any use of the information to criminally investigate or prosecute any alcohol or drug abuse patient.[facility] HospitalIn the event this information is protected by the Federal Confidentiality of Alcohol and Drug Abuse Patient Records regulations: The Federal rules restrict any use of the information to criminally investigate or prosecute any alcohol or drug abuse patient.[facility] HospitalIn the event this information is protected by the Federal Confidentiality of Alcohol and Drug Abuse Patient Records regulations: The Federal rules restrict any use of the information to criminally investigate or prosecute any alcohol or drug abuse patient.[facility] HospitalIn the event this information is protected by the Federal Confidentiality of Alcohol and Drug Abuse Patient Records regulations: The Federal rules restrict any use of the information to criminally investigate or prosecute any alcohol or drug abuse patient.[facility] HospitalIn the event this information is protected by the Federal Confidentiality of Alcohol and Drug Abuse Patient Records regulations: The Federal rules restrict any use of the information to criminally investigate or prosecute any alcohol or drug abuse patient.[facility] HospitalIn the event this information is protected by the Federal Confidentiality of Alcohol and Drug Abuse Patient Records regulations: The Federal rules restrict any use of the information to criminally investigate or prosecute any alcohol or drug abuse patient.[facility] HospitalIn the event this information is protected by the Federal Confidentiality of Alcohol and Drug Abuse Patient Records regulations: The Federal rules restrict any use of the information to criminally investigate or prosecute any alcohol or drug abuse patient.[facility] HospitalIn the event this information is protected by the Federal Confidentiality of Alcohol and Drug Abuse Patient Records regulations: The Federal rules restrict any use of the information to criminally investigate or prosecute any alcohol or drug abuse patient.[facility] HospitalIn the event this information is protected by the Federal Confidentiality of Alcohol and Drug Abuse Patient Records regulations: The Federal rules restrict any use of the information to criminally investigate or prosecute any alcohol or drug abuse patient.[facility] HospitalIn the event this information is protected by the Federal Confidentiality of Alcohol and Drug Abuse Patient Records regulations: The Federal rules restrict any use of the information to criminally investigate or prosecute any alcohol or drug abuse patient.[facility] HospitalIn the event this information is protected by the Federal Confidentiality of Alcohol and Drug Abuse Patient Records regulations: The Federal rules restrict any use of the information to criminally investigate or prosecute any alcohol or drug abuse patient.[facility] HospitalIn the event this information is protected by the Federal Confidentiality of Alcohol and Drug Abuse Patient Records regulations: The Federal rules restrict any use of the information to criminally investigate or prosecute any alcohol or drug abuse patient.[facility] HospitalIn the event this information is protected by the Federal Confidentiality of Alcohol and Drug Abuse Patient Records regulations: The Federal rules restrict any use of the information to criminally investigate or prosecute any alcohol or drug abuse patient.[facility] HospitalIn the event this information is protected by the Federal Confidentiality of Alcohol and Drug Abuse Patient Records regulations: The Federal rules restrict any use of the information to criminally investigate or prosecute any alcohol or drug abuse patient.[facility] HospitalIn the event this information is protected by the Federal Confidentiality of Alcohol and Drug Abuse Patient Records regulations: The Federal rules restrict any use of the information to criminally investigate or prosecute any alcohol or drug abuse patient.[facility] HospitalIn the event this information is protected by the Federal Confidentiality of Alcohol and Drug Abuse Patient Records regulations: The Federal rules restrict any use of the information to criminally investigate or prosecute any alcohol or drug abuse patient.[facility] HospitalIn the event this information is protected by the Federal Confidentiality of Alcohol and Drug Abuse Patient Records regulations: The Federal rules restrict any use of the information to criminally investigate or prosecute any alcohol or drug abuse patient.[facility] HospitalIn the event this information is protected by the Federal Confidentiality of Alcohol and Drug Abuse Patient Records regulations: The Federal rules restrict any use of the information to criminally investigate or prosecute any alcohol or drug abuse patient.[facility] HospitalIn the event this information is protected by the Federal Confidentiality of Alcohol and Drug Abuse Patient Records regulations: The Federal rules restrict any use of the information to criminally investigate or prosecute any alcohol or drug abuse patient.[facility] HospitalIn the event this information is protected by the Federal Confidentiality of Alcohol and Drug Abuse Patient Records regulations: The Federal rules restrict any use of the information to criminally investigate or prosecute any alcohol or drug abuse patient.[facility] HospitalIn the event this information is protected by the Federal Confidentiality of Alcohol and Drug Abuse Patient Records regulations: The Federal rules restrict any use of the information to criminally investigate or prosecute any alcohol or drug abuse patient.[facility] HospitalIn the event this information is protected by the Federal Confidentiality of Alcohol and Drug Abuse Patient Records regulations: The Federal rules restrict any use of the information to criminally investigate or prosecute any alcohol or drug abuse patient.[facility] HospitalIn the event this information is protected by the Federal Confidentiality of Alcohol and Drug Abuse Patient Records regulations: The Federal rules restrict any use of the information to criminally investigate or prosecute any alcohol or drug abuse patient.[facility] HospitalIn the event this information is protected by the Federal Confidentiality of Alcohol and Drug Abuse Patient Records regulations: The Federal rules restrict any use of the information to criminally investigate or prosecute any alcohol or drug abuse patient.[facility] HospitalIn the event this information is protected by the Federal Confidentiality of Alcohol and Drug Abuse Patient Records regulations: The Federal rules restrict any use of the information to criminally investigate or prosecute any alcohol or drug abuse patient.[facility] HospitalIn the event this information is protected by the Federal Confidentiality of Alcohol and Drug Abuse Patient Records regulations: The Federal rules restrict any use of the information to criminally investigate or prosecute any alcohol or drug abuse patient.[facility] HospitalIn the event this information is protected by the Federal Confidentiality of Alcohol and Drug Abuse Patient Records regulations: The Federal rules restrict any use of the information to criminally investigate or prosecute any alcohol or drug abuse patient.[facility] HospitalIn the event this information is protected by the Federal Confidentiality of Alcohol and Drug Abuse Patient Records regulations: The Federal rules restrict any use of the information to criminally investigate or prosecute any alcohol or drug abuse patient.[facility] HospitalIn the event this information is protected by the Federal Confidentiality of Alcohol and Drug Abuse Patient Records regulations: The Federal rules restrict any use of the information to criminally investigate or prosecute any alcohol or drug abuse patient.[facility] HospitalIn the event this information is protected by the Federal Confidentiality of Alcohol and Drug Abuse Patient Records regulations: The Federal rules restrict any use of the information to criminally investigate or prosecute any alcohol or drug abuse patient.[facility] HospitalIn the event this information is protected by the Federal Confidentiality of Alcohol and Drug Abuse Patient Records regulations: The Federal rules restrict any use of the information to criminally investigate or prosecute any alcohol or drug abuse patient.[facility] HospitalIn the event this information is protected by the Federal Confidentiality of Alcohol and Drug Abuse Patient Records regulations: The Federal rules restrict any use of the information to criminally investigate or prosecute any alcohol or drug abuse patient.[facility] HospitalIn the event this information is protected by the Federal Confidentiality of Alcohol and Drug Abuse Patient Records regulations: The Federal rules restrict any use of the information to criminally investigate or prosecute any alcohol or drug abuse patient.[facility] HospitalIn the event this information is protected by the Federal Confidentiality of Alcohol and Drug Abuse Patient Records regulations: The Federal rules restrict any use of the information to criminally investigate or prosecute any alcohol or drug abuse patient.[facility] HospitalIn the event this information is protected by the Federal Confidentiality of Alcohol and Drug Abuse Patient Records regulations: The Federal rules restrict any use of the information to criminally investigate or prosecute any alcohol or drug abuse patient.[facility] HospitalIn the event this information is protected by the Federal Confidentiality of Alcohol and Drug Abuse Patient Records regulations: The Federal rules restrict any use of the information to criminally investigate or prosecute any alcohol or drug abuse patient.[facility] HospitalIn the event this information is protected by the Federal Confidentiality of Alcohol and Drug Abuse Patient Records regulations: The Federal rules restrict any use of the information to criminally investigate or prosecute any alcohol or drug abuse patient.[facility] HospitalIn the event this information is protected by the Federal Confidentiality of Alcohol and Drug Abuse Patient Records regulations: The Federal rules restrict any use of the information to criminally investigate or prosecute any alcohol or drug abuse patient.[facility] HospitalIn the event this information is protected by the Federal Confidentiality of Alcohol and Drug Abuse Patient Records regulations: The Federal rules restrict any use of the information to criminally investigate or prosecute any alcohol or drug abuse patient.[facility] HospitalIn the event this information is protected by the Federal Confidentiality of Alcohol and Drug Abuse Patient Records regulations: The Federal rules restrict any use of the information to criminally investigate or prosecute any alcohol or drug abuse patient.[facility] HospitalIn the event this information is protected by the Federal Confidentiality of Alcohol and Drug Abuse Patient Records regulations: The Federal rules restrict any use of the information to criminally investigate or prosecute any alcohol or drug abuse patient.[facility] HospitalIn the event this information is protected by the Federal Confidentiality of Alcohol and Drug Abuse Patient Records regulations: The Federal rules restrict any use of the information to criminally investigate or prosecute any alcohol or drug abuse patient.[facility] HospitalIn the event this information is protected by the Federal Confidentiality of Alcohol and Drug Abuse Patient Records regulations: The Federal rules restrict any use of the information to criminally investigate or prosecute any alcohol or drug abuse patient.[facility] HospitalIn the event this information is protected by the Federal Confidentiality of Alcohol and Drug Abuse Patient Records regulations: The Federal rules restrict any use of the information to criminally investigate or prosecute any alcohol or drug abuse patient.[facility] HospitalIn the event this information is protected by the Federal Confidentiality of Alcohol and Drug Abuse Patient Records regulations: The Federal rules restrict any use of the information to criminally investigate or prosecute any alcohol or drug abuse patient.[facility] HospitalIn the event this information is protected by the Federal Confidentiality of Alcohol and Drug Abuse Patient Records regulations: The Federal rules restrict any use of the information to criminally investigate or prosecute any alcohol or drug abuse patient.[facility] HospitalIn the event this information is protected by the Federal Confidentiality of Alcohol and Drug Abuse Patient Records regulations: The Federal rules restrict any use of the information to criminally investigate or prosecute any alcohol or drug abuse patient.[facility] HospitalIn the event this information is protected by the Federal Confidentiality of Alcohol and Drug Abuse Patient Records regulations: The Federal rules restrict any use of the information to criminally investigate or prosecute any alcohol or drug abuse patient.[facility] HospitalIn the event this information is protected by the Federal Confidentiality of Alcohol and Drug Abuse Patient Records regulations: The Federal rules restrict any use of the information to criminally investigate or prosecute any alcohol or drug abuse patient.[facility] HospitalIn the event this information is protected by the Federal Confidentiality of Alcohol and Drug Abuse Patient Records regulations: The Federal rules restrict any use of the information to criminally investigate or prosecute any alcohol or drug abuse patient.[facility] HospitalIn the event this information is protected by the Federal Confidentiality of Alcohol and Drug Abuse Patient Records regulations: The Federal rules restrict any use of the information to criminally investigate or prosecute any alcohol or drug abuse patient.[facility] HospitalIn the event this information is protected by the Federal Confidentiality of Alcohol and Drug Abuse Patient Records regulations: The Federal rules restrict any use of the information to criminally investigate or prosecute any alcohol or drug abuse patient.[facility] HospitalIn the event this information is protected by the Federal Confidentiality of Alcohol and Drug Abuse Patient Records regulations: The Federal rules restrict any use of the information to criminally investigate or prosecute any alcohol or drug abuse patient.[facility] HospitalIn the event this information is protected by the Federal Confidentiality of Alcohol and Drug Abuse Patient Records regulations: The Federal rules restrict any use of the information to criminally investigate or prosecute any alcohol or drug abuse patient.[facility] HospitalIn the event this information is protected by the Federal Confidentiality of Alcohol and Drug Abuse Patient Records regulations: The Federal rules restrict any use of the information to criminally investigate or prosecute any alcohol or drug abuse patient.[facility] HospitalIn the event this information is protected by the Federal Confidentiality of Alcohol and Drug Abuse Patient Records regulations: The Federal rules restrict any use of the information to criminally investigate or prosecute any alcohol or drug abuse patient.[facility] HospitalIn the event this information is protected by the Federal Confidentiality of Alcohol and Drug Abuse Patient Records regulations: The Federal rules restrict any use of the information to criminally investigate or prosecute any alcohol or drug abuse patient.[facility] HospitalIn the event this information is protected by the Federal Confidentiality of Alcohol and Drug Abuse Patient Records regulations: The Federal rules restrict any use of the information to criminally investigate or prosecute any alcohol or drug abuse patient.[facility] HospitalIn the event this information is protected by the Federal Confidentiality of Alcohol and Drug Abuse Patient Records regulations: The Federal rules restrict any use of the information to criminally investigate or prosecute any alcohol or drug abuse patient.[facility] HospitalIn the event this information is protected by the Federal Confidentiality of Alcohol and Drug Abuse Patient Records regulations: The Federal rules restrict any use of the information to criminally investigate or prosecute any alcohol or drug abuse patient.[facility] HospitalIn the event this information is protected by the Federal Confidentiality of Alcohol and Drug Abuse Patient Records regulations: The Federal rules restrict any use of the information to criminally investigate or prosecute any alcohol or drug abuse patient.[facility] HospitalIn the event this information is protected by the Federal Confidentiality of Alcohol and Drug Abuse Patient Records regulations: The Federal rules restrict any use of the information to criminally investigate or prosecute any alcohol or drug abuse patient.[facility] HospitalIn the event this information is protected by the Federal Confidentiality of Alcohol and Drug Abuse Patient Records regulations: The Federal rules restrict any use of the information to criminally investigate or prosecute any alcohol or drug abuse patient.[facility] HospitalIn the event this information is protected by the Federal Confidentiality of Alcohol and Drug Abuse Patient Records regulations: The Federal rules restrict any use of the information to criminally investigate or prosecute any alcohol or drug abuse patient.[facility] HospitalIn the event this information is protected by the Federal Confidentiality of Alcohol and Drug Abuse Patient Records regulations: The Federal rules restrict any use of the information to criminally investigate or prosecute any alcohol or drug abuse patient.[facility] HospitalIn the event this information is protected by the Federal Confidentiality of Alcohol and Drug Abuse Patient Records regulations: The Federal rules restrict any use of the information to criminally investigate or prosecute any alcohol or drug abuse patient.[facility] HospitalIn the event this information is protected by the Federal Confidentiality of Alcohol and Drug Abuse Patient Records regulations: The Federal rules restrict any use of the information to criminally investigate or prosecute any alcohol or drug abuse patient.[facility] HospitalIn the event this information is protected by the Federal Confidentiality of Alcohol and Drug Abuse Patient Records regulations: The Federal rules restrict any use of the information to criminally investigate or prosecute any alcohol or drug abuse patient.[facility] HospitalIn the event this information is protected by the Federal Confidentiality of Alcohol and Drug Abuse Patient Records regulations: The Federal rules restrict any use of the information to criminally investigate or prosecute any alcohol or drug abuse patient.[facility] HospitalIn the event this information is protected by the Federal Confidentiality of Alcohol and Drug Abuse Patient Records regulations: The Federal rules restrict any use of the information to criminally investigate or prosecute any alcohol or drug abuse patient.[facility] HospitalIn the event this information is protected by the Federal Confidentiality of Alcohol and Drug Abuse Patient Records regulations: The Federal rules restrict any use of the information to criminally investigate or prosecute any alcohol or drug abuse patient.[facility] HospitalIn the event this information is protected by the Federal Confidentiality of Alcohol and Drug Abuse Patient Records regulations: The Federal rules restrict any use of the information to criminally investigate or prosecute any alcohol or drug abuse patient.[facility] HospitalIn the event this information is protected by the Federal Confidentiality of Alcohol and Drug Abuse Patient Records regulations: The Federal rules restrict any use of the information to criminally investigate or prosecute any alcohol or drug abuse patient.[facility] HospitalIn the event this information is protected by the Federal Confidentiality of Alcohol and Drug Abuse Patient Records regulations: The Federal rules restrict any use of the information to criminally investigate or prosecute any alcohol or drug abuse patient.[facility] HospitalIn the event this information is protected by the Federal Confidentiality of Alcohol and Drug Abuse Patient Records regulations: The Federal rules restrict any use of the information to criminally investigate or prosecute any alcohol or drug abuse patient.[facility] HospitalIn the event this information is protected by the Federal Confidentiality of Alcohol and Drug Abuse Patient Records regulations: The Federal rules restrict any use of the information to criminally investigate or prosecute any alcohol or drug abuse patient.[facility] HospitalIn the event this information is protected by the Federal Confidentiality of Alcohol and Drug Abuse Patient Records regulations: The Federal rules restrict any use of the information to criminally investigate or prosecute any alcohol or drug abuse patient.[facility] HospitalIn the event this information is protected by the Federal Confidentiality of Alcohol and Drug Abuse Patient Records regulations: The Federal rules restrict any use of the information to criminally investigate or prosecute any alcohol or drug abuse patient.[facility] HospitalIn the event this information is protected by the Federal Confidentiality of Alcohol and Drug Abuse Patient Records regulations: The Federal rules restrict any use of the information to criminally investigate or prosecute any alcohol or drug abuse patient.[facility] HospitalIn the event this information is protected by the Federal Confidentiality of Alcohol and Drug Abuse Patient Records regulations: The Federal rules restrict any use of the information to criminally investigate or prosecute any alcohol or drug abuse patient.[facility] HospitalIn the event this information is protected by the Federal Confidentiality of Alcohol and Drug Abuse Patient Records regulations: The Federal rules restrict any use of the information to criminally investigate or prosecute any alcohol or drug abuse patient.[facility] HospitalIn the event this information is protected by the Federal Confidentiality of Alcohol and Drug Abuse Patient Records regulations: The Federal rules restrict any use of the information to criminally investigate or prosecute any alcohol or drug abuse patient.[facility] HospitalIn the event this information is protected by the Federal Confidentiality of Alcohol and Drug Abuse Patient Records regulations: The Federal rules restrict any use of the information to criminally investigate or prosecute any alcohol or drug abuse patient.[facility] HospitalIn the event this information is protected by the Federal Confidentiality of Alcohol and Drug Abuse Patient Records regulations: The Federal rules restrict any use of the information to criminally investigate or prosecute any alcohol or drug abuse patient.[facility] HospitalIn the event this information is protected by the Federal Confidentiality of Alcohol and Drug Abuse Patient Records regulations: The Federal rules restrict any use of the information to criminally investigate or prosecute any alcohol or drug abuse patient.[facility] HospitalIn the event this information is protected by the Federal Confidentiality of Alcohol and Drug Abuse Patient Records regulations: The Federal rules restrict any use of the information to criminally investigate or prosecute any alcohol or drug abuse patient.[facility] HospitalIn the event this information is protected by the Federal Confidentiality of Alcohol and Drug Abuse Patient Records regulations: The Federal rules restrict any use of the information to criminally investigate or prosecute any alcohol or drug abuse patient.[facility] HospitalIn the event this information is protected by the Federal Confidentiality of Alcohol and Drug Abuse Patient Records regulations: The Federal rules restrict any use of the information to criminally investigate or prosecute any alcohol or drug abuse patient.[facility] HospitalIn the event this information is protected by the Federal Confidentiality of Alcohol and Drug Abuse Patient Records regulations: The Federal rules restrict any use of the information to criminally investigate or prosecute any alcohol or drug abuse patient.[facility] HospitalIn the event this information is protected by the Federal Confidentiality of Alcohol and Drug Abuse Patient Records regulations: The Federal rules restrict any use of the information to criminally investigate or prosecute any alcohol or drug abuse patient.[facility] HospitalIn the event this information is protected by the Federal Confidentiality of Alcohol and Drug Abuse Patient Records regulations: The Federal rules restrict any use of the information to criminally investigate or prosecute any alcohol or drug abuse patient.[facility] HospitalIn the event this information is protected by the Federal Confidentiality of Alcohol and Drug Abuse Patient Records regulations: The Federal rules restrict any use of the information to criminally investigate or prosecute any alcohol or drug abuse patient.[facility] HospitalIn the event this information is protected by the Federal Confidentiality of Alcohol and Drug Abuse Patient Records regulations: The Federal rules restrict any use of the information to criminally investigate or prosecute any alcohol or drug abuse patient.[facility] HospitalIn the event this information is protected by the Federal Confidentiality of Alcohol and Drug Abuse Patient Records regulations: The Federal rules restrict any use of the information to criminally investigate or prosecute any alcohol or drug abuse patient.[facility] HospitalIn the event this information is protected by the Federal Confidentiality of Alcohol and Drug Abuse Patient Records regulations: The Federal rules restrict any use of the information to criminally investigate or prosecute any alcohol or drug abuse patient.[facility] HospitalIn the event this information is protected by the Federal Confidentiality of Alcohol and Drug Abuse Patient Records regulations: The Federal rules restrict any use of the information to criminally investigate or prosecute any alcohol or drug abuse patient.[facility] HospitalIn the event this information is protected by the Federal Confidentiality of Alcohol and Drug Abuse Patient Records regulations: The Federal rules restrict any use of the information to criminally investigate or prosecute any alcohol or drug abuse patient.[facility] HospitalIn the event this information is protected by the Federal Confidentiality of Alcohol and Drug Abuse Patient Records regulations: The Federal rules restrict any use of the information to criminally investigate or prosecute any alcohol or drug abuse patient.[facility] HospitalIn the event this information is protected by the Federal Confidentiality of Alcohol and Drug Abuse Patient Records regulations: The Federal rules restrict any use of the information to criminally investigate or prosecute any alcohol or drug abuse patient.[facility] HospitalIn the event this information is protected by the Federal Confidentiality of Alcohol and Drug Abuse Patient Records regulations: The Federal rules restrict any use of the information to criminally investigate or prosecute any alcohol or drug abuse patient.[facility] HospitalIn the event this information is protected by the Federal Confidentiality of Alcohol and Drug Abuse Patient Records regulations: The Federal rules restrict any use of the information to criminally investigate or prosecute any alcohol or drug abuse patient.[facility] HospitalIn the event this information is protected by the Federal Confidentiality of Alcohol and Drug Abuse Patient Records regulations: The Federal rules restrict any use of the information to criminally investigate or prosecute any alcohol or drug abuse patient.[facility] HospitalIn the event this information is protected by the Federal Confidentiality of Alcohol and Drug Abuse Patient Records regulations: The Federal rules restrict any use of the information to criminally investigate or prosecute any alcohol or drug abuse patient.[facility] HospitalIn the event this information is protected by the Federal Confidentiality of Alcohol and Drug Abuse Patient Records regulations: The Federal rules restrict any use of the information to criminally investigate or prosecute any alcohol or drug abuse patient.[facility] HospitalIn the event this information is protected by the Federal Confidentiality of Alcohol and Drug Abuse Patient Records regulations: The Federal rules restrict any use of the information to criminally investigate or prosecute any alcohol or drug abuse patient.[facility] HospitalIn the event this information is protected by the Federal Confidentiality of Alcohol and Drug Abuse Patient Records regulations: The Federal rules restrict any use of the information to criminally investigate or prosecute any alcohol or drug abuse patient.[facility] HospitalIn the event this information is protected by the Federal Confidentiality of Alcohol and Drug Abuse Patient Records regulations: The Federal rules restrict any use of the information to criminally investigate or prosecute any alcohol or drug abuse patient.[facility] HospitalIn the event this information is protected by the Federal Confidentiality of Alcohol and Drug Abuse Patient Records regulations: The Federal rules restrict any use of the information to criminally investigate or prosecute any alcohol or drug abuse patient.[facility] HospitalIn the event this information is protected by the Federal Confidentiality of Alcohol and Drug Abuse Patient Records regulations: The Federal rules restrict any use of the information to criminally investigate or prosecute any alcohol or drug abuse patient.[facility] HospitalIn the event this information is protected by the Federal Confidentiality of Alcohol and Drug Abuse Patient Records regulations: The Federal rules restrict any use of the information to criminally investigate or prosecute any alcohol or drug abuse patient.[facility] HospitalIn the event this information is protected by the Federal Confidentiality of Alcohol and Drug Abuse Patient Records regulations: The Federal rules restrict any use of the information to criminally investigate or prosecute any alcohol or drug abuse patient.[facility] HospitalIn the event this information is protected by the Federal Confidentiality of Alcohol and Drug Abuse Patient Records regulations: The Federal rules restrict any use of the information to criminally investigate or prosecute any alcohol or drug abuse patient.[facility] HospitalIn the event this information is protected by the Federal Confidentiality of Alcohol and Drug Abuse Patient Records regulations: The Federal rules restrict any use of the information to criminally investigate or prosecute any alcohol or drug abuse patient.[facility] HospitalIn the event this information is protected by the Federal Confidentiality of Alcohol and Drug Abuse Patient Records regulations: The Federal rules restrict any use of the information to criminally investigate or prosecute any alcohol or drug abuse patient.[facility] HospitalIn the event this information is protected by the Federal Confidentiality of Alcohol and Drug Abuse Patient Records regulations: The Federal rules restrict any use of the information to criminally investigate or prosecute any alcohol or drug abuse patient.[facility] HospitalIn the event this information is protected by the Federal Confidentiality of Alcohol and Drug Abuse Patient Records regulations: The Federal rules restrict any use of the information to criminally investigate or prosecute any alcohol or drug abuse patient.[facility] HospitalIn the event this information is protected by the Federal Confidentiality of Alcohol and Drug Abuse Patient Records regulations: The Federal rules restrict any use of the information to criminally investigate or prosecute any alcohol or drug abuse patient.[facility] HospitalIn the event this information is protected by the Federal Confidentiality of Alcohol and Drug Abuse Patient Records regulations: The Federal rules restrict any use of the information to criminally investigate or prosecute any alcohol or drug abuse patient.[facility] HospitalIn the event this information is protected by the Federal Confidentiality of Alcohol and Drug Abuse Patient Records regulations: The Federal rules restrict any use of the information to criminally investigate or prosecute any alcohol or drug abuse patient.[facility] HospitalIn the event this information is protected by the Federal Confidentiality of Alcohol and Drug Abuse Patient Records regulations: The Federal rules restrict any use of the information to criminally investigate or prosecute any alcohol or drug abuse patient.[facility] HospitalIn the event this information is protected by the Federal Confidentiality of Alcohol and Drug Abuse Patient Records regulations: The Federal rules restrict any use of the information to criminally investigate or prosecute any alcohol or drug abuse patient.[facility] HospitalIn the event this information is protected by the Federal Confidentiality of Alcohol and Drug Abuse Patient Records regulations: The Federal rules restrict any use of the information to criminally investigate or prosecute any alcohol or drug abuse patient.[facility] HospitalIn the event this information is protected by the Federal Confidentiality of Alcohol and Drug Abuse Patient Records regulations: The Federal rules restrict any use of the information to criminally investigate or prosecute any alcohol or drug abuse patient.[facility] HospitalIn the event this information is protected by the Federal Confidentiality of Alcohol and Drug Abuse Patient Records regulations: The Federal rules restrict any use of the information to criminally investigate or prosecute any alcohol or drug abuse patient.[facility] HospitalIn the event this information is protected by the Federal Confidentiality of Alcohol and Drug Abuse Patient Records regulations: The Federal rules restrict any use of the information to criminally investigate or prosecute any alcohol or drug abuse patient.[facility] HospitalIn the event this information is protected by the Federal Confidentiality of Alcohol and Drug Abuse Patient Records regulations: The Federal rules restrict any use of the information to criminally investigate or prosecute any alcohol or drug abuse patient.[facility] HospitalIn the event this information is protected by the Federal Confidentiality of Alcohol and Drug Abuse Patient Records regulations: The Federal rules restrict any use of the information to criminally investigate or prosecute any alcohol or drug abuse patient.[facility] HospitalIn the event this information is protected by the Federal Confidentiality of Alcohol and Drug Abuse Patient Records regulations: The Federal rules restrict any use of the information to criminally investigate or prosecute any alcohol or drug abuse patient.[facility] HospitalIn the event this information is protected by the Federal Confidentiality of Alcohol and Drug Abuse Patient Records regulations: The Federal rules restrict any use of the information to criminally investigate or prosecute any alcohol or drug abuse patient.[facility] HospitalIn the event this information is protected by the Federal Confidentiality of Alcohol and Drug Abuse Patient Records regulations: The Federal rules restrict any use of the information to criminally investigate or prosecute any alcohol or drug abuse patient.[facility] HospitalIn the event this information is protected by the Federal Confidentiality of Alcohol and Drug Abuse Patient Records regulations: The Federal rules restrict any use of the information to criminally investigate or prosecute any alcohol or drug abuse patient.[facility] HospitalIn the event this information is protected by the Federal Confidentiality of Alcohol and Drug Abuse Patient Records regulations: The Federal rules restrict any use of the information to criminally investigate or prosecute any alcohol or drug abuse patient.[facility] HospitalIn the event this information is protected by the Federal Confidentiality of Alcohol and Drug Abuse Patient Records regulations: The Federal rules restrict any use of the information to criminally investigate or prosecute any alcohol or drug abuse patient.[facility] HospitalIn the event this information is protected by the Federal Confidentiality of Alcohol and Drug Abuse Patient Records regulations: The Federal rules restrict any use of the information to criminally investigate or prosecute any alcohol or drug abuse patient.[facility] HospitalIn the event this information is protected by the Federal Confidentiality of Alcohol and Drug Abuse Patient Records regulations: The Federal rules restrict any use of the information to criminally investigate or prosecute any alcohol or drug abuse patient.[facility] HospitalIn the event this information is protected by the Federal Confidentiality of Alcohol and Drug Abuse Patient Records regulations: The Federal rules restrict any use of the information to criminally investigate or prosecute any alcohol or drug abuse patient.[facility] HospitalIn the event this information is protected by the Federal Confidentiality of Alcohol and Drug Abuse Patient Records regulations: The Federal rules restrict any use of the information to criminally investigate or prosecute any alcohol or drug abuse patient.[facility] HospitalIn the event this information is protected by the Federal Confidentiality of Alcohol and Drug Abuse Patient Records regulations: The Federal rules restrict any use of the information to criminally investigate or prosecute any alcohol or drug abuse patient.[facility] HospitalIn the event this information is protected by the Federal Confidentiality of Alcohol and Drug Abuse Patient Records regulations: The Federal rules restrict any use of the information to criminally investigate or prosecute any alcohol or drug abuse patient.[facility] HospitalIn the event this information is protected by the Federal Confidentiality of Alcohol and Drug Abuse Patient Records regulations: The Federal rules restrict any use of the information to criminally investigate or prosecute any alcohol or drug abuse patient.[facility] HospitalIn the event this information is protected by the Federal Confidentiality of Alcohol and Drug Abuse Patient Records regulations: The Federal rules restrict any use of the information to criminally investigate or prosecute any alcohol or drug abuse patient.[facility] HospitalIn the event this information is protected by the Federal Confidentiality of Alcohol and Drug Abuse Patient Records regulations: The Federal rules restrict any use of the information to criminally investigate or prosecute any alcohol or drug abuse patient.[facility] HospitalIn the event this information is protected by the Federal Confidentiality of Alcohol and Drug Abuse Patient Records regulations: The Federal rules restrict any use of the information to criminally investigate or prosecute any alcohol or drug abuse patient.[facility] HospitalIn the event this information is protected by the Federal Confidentiality of Alcohol and Drug Abuse Patient Records regulations: The Federal rules restrict any use of the information to criminally investigate or prosecute any alcohol or drug abuse patient.[facility] HospitalIn the event this information is protected by the Federal Confidentiality of Alcohol and Drug Abuse Patient Records regulations: The Federal rules restrict any use of the information to criminally investigate or prosecute any alcohol or drug abuse patient.[facility] HospitalIn the event this information is protected by the Federal Confidentiality of Alcohol and Drug Abuse Patient Records regulations: The Federal rules restrict any use of the information to criminally investigate or prosecute any alcohol or drug abuse patient.[facility] HospitalIn the event this information is protected by the Federal Confidentiality of Alcohol and Drug Abuse Patient Records regulations: The Federal rules restrict any use of the information to criminally investigate or prosecute any alcohol or drug abuse patient.[facility] HospitalIn the event this information is protected by the Federal Confidentiality of Alcohol and Drug Abuse Patient Records regulations: The Federal rules restrict any use of the information to criminally investigate or prosecute any alcohol or drug abuse patient.[facility] HospitalIn the event this information is protected by the Federal Confidentiality of Alcohol and Drug Abuse Patient Records regulations: The Federal rules restrict any use of the information to criminally investigate or prosecute any alcohol or drug abuse patient.[facility] HospitalIn the event this information is protected by the Federal Confidentiality of Alcohol and Drug Abuse Patient Records regulations: The Federal rules restrict any use of the information to criminally investigate or prosecute any alcohol or drug abuse patient.[facility] HospitalIn the event this information is protected by the Federal Confidentiality of Alcohol and Drug Abuse Patient Records regulations: The Federal rules restrict any use of the information to criminally investigate or prosecute any alcohol or drug abuse patient.[facility] HospitalIn the event this information is protected by the Federal Confidentiality of Alcohol and Drug Abuse Patient Records regulations: The Federal rules restrict any use of the information to criminally investigate or prosecute any alcohol or drug abuse patient.[facility] HospitalIn the event this information is protected by the Federal Confidentiality of Alcohol and Drug Abuse Patient Records regulations: The Federal rules restrict any use of the information to criminally investigate or prosecute any alcohol or drug abuse patient.[facility] HospitalIn the event this information is protected by the Federal Confidentiality of Alcohol and Drug Abuse Patient Records regulations: The Federal rules restrict any use of the information to criminally investigate or prosecute any alcohol or drug abuse patient.[facility] HospitalIn the event this information is protected by the Federal Confidentiality of Alcohol and Drug Abuse Patient Records regulations: The Federal rules restrict any use of the information to criminally investigate or prosecute any alcohol or drug abuse patient.[facility] HospitalIn the event this information is protected by the Federal Confidentiality of Alcohol and Drug Abuse Patient Records regulations: The Federal rules restrict any use of the information to criminally investigate or prosecute any alcohol or drug abuse patient.[facility] HospitalIn the event this information is protected by the Federal Confidentiality of Alcohol and Drug Abuse Patient Records regulations: The Federal rules restrict any use of the information to criminally investigate or prosecute any alcohol or drug abuse patient.[facility] HospitalIn the event this information is protected by the Federal Confidentiality of Alcohol and Drug Abuse Patient Records regulations: The Federal rules restrict any use of the information to criminally investigate or prosecute any alcohol or drug abuse patient.[facility] HospitalIn the event this information is protected by the Federal Confidentiality of Alcohol and Drug Abuse Patient Records regulations: The Federal rules restrict any use of the information to criminally investigate or prosecute any alcohol or drug abuse patient.[facility] HospitalIn the event this information is protected by the Federal Confidentiality of Alcohol and Drug Abuse Patient Records regulations: The Federal rules restrict any use of the information to criminally investigate or prosecute any alcohol or drug abuse patient.[facility] HospitalIn the event this information is protected by the Federal Confidentiality of Alcohol and Drug Abuse Patient Records regulations: The Federal rules restrict any use of the information to criminally investigate or prosecute any alcohol or drug abuse patient.[facility] HospitalIn the event this information is protected by the Federal Confidentiality of Alcohol and Drug Abuse Patient Records regulations: The Federal rules restrict any use of the information to criminally investigate or prosecute any alcohol or drug abuse patient.[facility] HospitalIn the event this information is protected by the Federal Confidentiality of Alcohol and Drug Abuse Patient Records regulations: The Federal rules restrict any use of the information to criminally investigate or prosecute any alcohol or drug abuse patient.[facility] HospitalIn the event this information is protected by the Federal Confidentiality of Alcohol and Drug Abuse Patient Records regulations: The Federal rules restrict any use of the information to criminally investigate or prosecute any alcohol or drug abuse patient.[facility] HospitalIn the event this information is protected by the Federal Confidentiality of Alcohol and Drug Abuse Patient Records regulations: The Federal rules restrict any use of the information to criminally investigate or prosecute any alcohol or drug abuse patient.[facility] HospitalIn the event this information is protected by the Federal Confidentiality of Alcohol and Drug Abuse Patient Records regulations: The Federal rules restrict any use of the information to criminally investigate or prosecute any alcohol or drug abuse patient.[facility] HospitalIn the event this information is protected by the Federal Confidentiality of Alcohol and Drug Abuse Patient Records regulations: The Federal rules restrict any use of the information to criminally investigate or prosecute any alcohol or drug abuse patient.[facility] HospitalIn the event this information is protected by the Federal Confidentiality of Alcohol and Drug Abuse Patient Records regulations: The Federal rules restrict any use of the information to criminally investigate or prosecute any alcohol or drug abuse patient.[facility] HospitalIn the event this information is protected by the Federal Confidentiality of Alcohol and Drug Abuse Patient Records regulations: The Federal rules restrict any use of the information to criminally investigate or prosecute any alcohol or drug abuse patient.[facility] HospitalIn the event this information is protected by the Federal Confidentiality of Alcohol and Drug Abuse Patient Records regulations: The Federal rules restrict any use of the information to criminally investigate or prosecute any alcohol or drug abuse patient.[facility] HospitalIn the event this information is protected by the Federal Confidentiality of Alcohol and Drug Abuse Patient Records regulations: The Federal rules restrict any use of the information to criminally investigate or prosecute any alcohol or drug abuse patient.[facility] HospitalIn the event this information is protected by the Federal Confidentiality of Alcohol and Drug Abuse Patient Records regulations: The Federal rules restrict any use of the information to criminally investigate or prosecute any alcohol or drug abuse patient.[facility] HospitalIn the event this information is protected by the Federal Confidentiality of Alcohol and Drug Abuse Patient Records regulations: The Federal rules restrict any use of the information to criminally investigate or prosecute any alcohol or drug abuse patient.[facility] HospitalIn the event this information is protected by the Federal Confidentiality of Alcohol and Drug Abuse Patient Records regulations: The Federal rules restrict any use of the information to criminally investigate or prosecute any alcohol or drug abuse patient.[facility] HospitalIn the event this information is protected by the Federal Confidentiality of Alcohol and Drug Abuse Patient Records regulations: The Federal rules restrict any use of the information to criminally investigate or prosecute any alcohol or drug abuse patient.[facility] HospitalIn the event this information is protected by the Federal Confidentiality of Alcohol and Drug Abuse Patient Records regulations: The Federal rules restrict any use of the information to criminally investigate or prosecute any alcohol or drug abuse patient.[facility] HospitalIn the event this information is protected by the Federal Confidentiality of Alcohol and Drug Abuse Patient Records regulations: The Federal rules restrict any use of the information to criminally investigate or prosecute any alcohol or drug abuse patient.[facility] HospitalIn the event this information is protected by the Federal Confidentiality of Alcohol and Drug Abuse Patient Records regulations: The Federal rules restrict any use of the information to criminally investigate or prosecute any alcohol or drug abuse patient.[facility] HospitalIn the event this information is protected by the Federal Confidentiality of Alcohol and Drug Abuse Patient Records regulations: The Federal rules restrict any use of the information to criminally investigate or prosecute any alcohol or drug abuse patient.[facility] HospitalIn the event this information is protected by the Federal Confidentiality of Alcohol and Drug Abuse Patient Records regulations: The Federal rules restrict any use of the information to criminally investigate or prosecute any alcohol or drug abuse patient.[facility] HospitalIn the event this information is protected by the Federal Confidentiality of Alcohol and Drug Abuse Patient Records regulations: The Federal rules restrict any use of the information to criminally investigate or prosecute any alcohol or drug abuse patient.[facility] HospitalIn the event this information is protected by the Federal Confidentiality of Alcohol and Drug Abuse Patient Records regulations: The Federal rules restrict any use of the information to criminally investigate or prosecute any alcohol or drug abuse patient.[facility] HospitalIn the event this information is protected by the Federal Confidentiality of Alcohol and Drug Abuse Patient Records regulations: The Federal rules restrict any use of the information to criminally investigate or prosecute any alcohol or drug abuse patient.[facility] HospitalIn the event this information is protected by the Federal Confidentiality of Alcohol and Drug Abuse Patient Records regulations: The Federal rules restrict any use of the information to criminally investigate or prosecute any alcohol or drug abuse patient.[facility] HospitalIn the event this information is protected by the Federal Confidentiality of Alcohol and Drug Abuse Patient Records regulations: The Federal rules restrict any use of the information to criminally investigate or prosecute any alcohol or drug abuse patient.[facility] HospitalIn the event this information is protected by the Federal Confidentiality of Alcohol and Drug Abuse Patient Records regulations: The Federal rules restrict any use of the information to criminally investigate or prosecute any alcohol or drug abuse patient.[facility] HospitalIn the event this information is protected by the Federal Confidentiality of Alcohol and Drug Abuse Patient Records regulations: The Federal rules restrict any use of the information to criminally investigate or prosecute any alcohol or drug abuse patient.[facility] HospitalIn the event this information is protected by the Federal Confidentiality of Alcohol and Drug Abuse Patient Records regulations: The Federal rules restrict any use of the information to criminally investigate or prosecute any alcohol or drug abuse patient.[facility] HospitalIn the event this information is protected by the Federal Confidentiality of Alcohol and Drug Abuse Patient Records regulations: The Federal rules restrict any use of the information to criminally investigate or prosecute any alcohol or drug abuse patient.[facility] HospitalIn the event this information is protected by the Federal Confidentiality of Alcohol and Drug Abuse Patient Records regulations: The Federal rules restrict any use of the information to criminally investigate or prosecute any alcohol or drug abuse patient.[facility] HospitalIn the event this information is protected by the Federal Confidentiality of Alcohol and Drug Abuse Patient Records regulations: The Federal rules restrict any use of the information to criminally investigate or prosecute any alcohol or drug abuse patient.[facility] HospitalIn the event this information is protected by the Federal Confidentiality of Alcohol and Drug Abuse Patient Records regulations: The Federal rules restrict any use of the information to criminally investigate or prosecute any alcohol or drug abuse patient.[facility] HospitalIn the event this information is protected by the Federal Confidentiality of Alcohol and Drug Abuse Patient Records regulations: The Federal rules restrict any use of the information to criminally investigate or prosecute any alcohol or drug abuse patient.[facility] HospitalIn the event this information is protected by the Federal Confidentiality of Alcohol and Drug Abuse Patient Records regulations: The Federal rules restrict any use of the information to criminally investigate or prosecute any alcohol or drug abuse patient.[facility] HospitalIn the event this information is protected by the Federal Confidentiality of Alcohol and Drug Abuse Patient Records regulations: The Federal rules restrict any use of the information to criminally investigate or prosecute any alcohol or drug abuse patient.[facility] HospitalIn the event this information is protected by the Federal Confidentiality of Alcohol and Drug Abuse Patient Records regulations: The Federal rules restrict any use of the information to criminally investigate or prosecute any alcohol or drug abuse patient.[facility] HospitalIn the event this information is protected by the Federal Confidentiality of Alcohol and Drug Abuse Patient Records regulations: The Federal rules restrict any use of the information to criminally investigate or prosecute any alcohol or drug abuse patient.[facility] HospitalIn the event this information is protected by the Federal Confidentiality of Alcohol and Drug Abuse Patient Records regulations: The Federal rules restrict any use of the information to criminally investigate or prosecute any alcohol or drug abuse patient.[facility] HospitalIn the event this information is protected by the Federal Confidentiality of Alcohol and Drug Abuse Patient Records regulations: The Federal rules restrict any use of the information to criminally investigate or prosecute any alcohol or drug abuse patient.[facility] HospitalIn the event this information is protected by the Federal Confidentiality of Alcohol and Drug Abuse Patient Records regulations: The Federal rules restrict any use of the information to criminally investigate or prosecute any alcohol or drug abuse patient.[facility] HospitalIn the event this information is protected by the Federal Confidentiality of Alcohol and Drug Abuse Patient Records regulations: The Federal rules restrict any use of the information to criminally investigate or prosecute any alcohol or drug abuse patient.[facility] HospitalIn the event this information is protected by the Federal Confidentiality of Alcohol and Drug Abuse Patient Records regulations: The Federal rules restrict any use of the information to criminally investigate or prosecute any alcohol or drug abuse patient.[facility] HospitalIn the event this information is protected by the Federal Confidentiality of Alcohol and Drug Abuse Patient Records regulations: The Federal rules restrict any use of the information to criminally investigate or prosecute any alcohol or drug abuse patient.[facility] HospitalIn the event this information is protected by the Federal Confidentiality of Alcohol and Drug Abuse Patient Records regulations: The Federal rules restrict any use of the information to criminally investigate or prosecute any alcohol or drug abuse patient.[facility] HospitalIn the event this information is protected by the Federal Confidentiality of Alcohol and Drug Abuse Patient Records regulations: The Federal rules restrict any use of the information to criminally investigate or prosecute any alcohol or drug abuse patient.[facility] HospitalIn the event this information is protected by the Federal Confidentiality of Alcohol and Drug Abuse Patient Records regulations: The Federal rules restrict any use of the information to criminally investigate or prosecute any alcohol or drug abuse patient.[facility] HospitalIn the event this information is protected by the Federal Confidentiality of Alcohol and Drug Abuse Patient Records regulations: The Federal rules restrict any use of the information to criminally investigate or prosecute any alcohol or drug abuse patient.[facility] HospitalIn the event this information is protected by the Federal Confidentiality of Alcohol and Drug Abuse Patient Records regulations: The Federal rules restrict any use of the information to criminally investigate or prosecute any alcohol or drug abuse patient.[facility] HospitalIn the event this information is protected by the Federal Confidentiality of Alcohol and Drug Abuse Patient Records regulations: The Federal rules restrict any use of the information to criminally investigate or prosecute any alcohol or drug abuse patient.[facility] HospitalIn the event this information is protected by the Federal Confidentiality of Alcohol and Drug Abuse Patient Records regulations: The Federal rules restrict any use of the information to criminally investigate or prosecute any alcohol or drug abuse patient.[facility] HospitalIn the event this information is protected by the Federal Confidentiality of Alcohol and Drug Abuse Patient Records regulations: The Federal rules restrict any use of the information to criminally investigate or prosecute any alcohol or drug abuse patient.[facility] HospitalIn the event this information is protected by the Federal Confidentiality of Alcohol and Drug Abuse Patient Records regulations: The Federal rules restrict any use of the information to criminally investigate or prosecute any alcohol or drug abuse patient.[facility] HospitalIn the event this information is protected by the Federal Confidentiality of Alcohol and Drug Abuse Patient Records regulations: The Federal rules restrict any use of the information to criminally investigate or prosecute any alcohol or drug abuse patient.[facility] HospitalIn the event this information is protected by the Federal Confidentiality of Alcohol and Drug Abuse Patient Records regulations: The Federal rules restrict any use of the information to criminally investigate or prosecute any alcohol or drug abuse patient.[facility] HospitalIn the event this information is protected by the Federal Confidentiality of Alcohol and Drug Abuse Patient Records regulations: The Federal rules restrict any use of the information to criminally investigate or prosecute any alcohol or drug abuse patient.[facility] Reason for Visit (unrecogniz ed section and content) Reason Onset Date Comments Refill Request 02/18/2022 Reason Comments New Patient Specialty Diagnoses / Procedures Referred By Contac t Referred To Contact Neurosurgery Diagnoses Spinal stenosis of lumbar region with neurogenic claudication Abnormality of gait Procedures CONSULT TO NEUROSURGERY NEW PATIENT VISIT LEVEL 5 Gracy Sears, HIRAM.DIRECTOR OF TESTING [address] [place] [address] Referral ID Status Reason Start Date Expiration Date Visits Requested Visits Authorized [id number] Pending Review PCP Requested Referral 1 09/11/2022 1 1 Reason Comments Consult Specialty Diagnoses / Procedures Referred By Contac t Referred To Contact Diagnoses Pre-op testing Procedures REFER TO PACC - PRE ANESTHESIA CONSULTATION CLINIC OFFICE/OUTPATIENT NEW HIGH MDM 60-74 MINUTES Steve Jo PA-C [address] [place] [address] Referral ID Status Reason Start Date Expiration Date Visits Requested Visits Authorized [id number] Pending Review PCP Requested Referral 01/07/2022 01/07/2023 1 1 Reason Onset Date Comments Population Health Navigation Outreach 02/26/2022 [facility] care gaps Reason Comments Prescription Refills Reason Comments Established NI Person 3 month follow up Reason Onset Date Comments Transition Of Care 03/23/2022 [facility] Discharge Follow up 03/22/22 Reason Comments Nurse from [facility] called Reason Onset Date Comments Refill Request 03/27/2022 Reason Comments [facility] verbal orders to fol low Reason Comments Appointment Reason Onset Date Comments Refill Request 04/06/2022 Reason Onset Date Comments Transition Of Care 04/06/2022 Hospital DC , initial outreach Reason Comments Occupational Therapy Plan of Care Social Work orders Reason Comments Post Op lower back Reason Comments Results Reason Comments Established Patient Reason Comments 6 Month Exam Reason Onset Date Comments Refill Request 05/22/2022 Reason Onset Date Comments Refill Request 05/29/2022 Reason Comments Refill Request Reason Comments Skillled Nursing Plan of Care FYI-No Action Needed Reason Comments F/U 3 Month Reason Onset Date Comments Refill Request 08/03/2022 Reason Comments Follow Up 3 month Specialty Diagnoses / Procedures Referred By Contac t Referred To Contact MR IMAGING Diagnoses Spinal stenosis of cervical region Procedures MRI CERVICAL SPINE WO IVCON MRI SPINAL CANAL CERVICAL W/[place] [address] [place] [address] Mr Imaging Referral ID Status Reason Start Date Expiration Date V isits Requested Visits Authorized [id number] Closed Auto-Generate d Referral 08/28/2022 09/27/2022 1 1 Reason Comments Follow Up Reason Comments Orders Reason Comments Results Reason Comments ER F/U [facility] ER follow up 10/27 dx: broken ribs after falling at home Reason Onset Date Comments 11/12/2022 Reason Comments Information Reason Comments Hospital F/U [facility] d/c 2 Reason Comments Patient Question Reason Comments Orders MRI Reason Comments Results - Mri Reason Onset Date Comments Refill Request 01/11/2023 Reason Comments Contact Center Call Reason Comments Established Patient Follow Up Post Op Reason Comments Consult Benign Prostatic Hypertrophy UTI Reason Comments Established Patient Sx date 01/11/23 Follow Up Sx date 01/11/23 Post Op Sx date 01/11/23 Pain Sx date 01/11/23 Reason Comments Future Appointment Reason Comments Established Patient Follow Up Post Op Reason Comments Established Patient Follow Up Reason Comments Home Health Point of Care Results Reason Comments Patient Update Reason Comments Hospital Follow Up Reason Comments [facility] PT POC Reason Onset Date Comments Refill Request 07/05/2023 Reason Comments Established Patient Patient fell yesterd ay from standing position while trying to transfer from bed to toilet in wheelchair. Follow Up Patient fell yesterd ay from standing position while trying to transfer from bed to toilet in wheelchair. Pain Patient fell yesterd ay from standing position while trying to transfer from bed to toilet in wheelchair. Swelling Patient fell yesterd ay from standing position while trying to transfer from bed to toilet in wheelchair. 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 Reason Onset Date Comments Refill Request 07/23/2023 Reason Comments Follow Up 1 mth follow up. Reason Comments Rx for outpatient PT Reason Comments Radiology CT Specialty Diagnoses / Procedures [facility] CT IM[facility]ING Diagnoses Right flank pain Microscopic hematuria Procedures CT FLANK WO IVCON CT ABD & PELVIS W/O CONTRAST Marbella Zaidi PA-C [address] [place] [address] [place] [address] Referral ID Status Reason Start Date Expiration Date V isits Requested Visits Authorized [id number] Closed Auto-Generate d Referral 07/01/2023 07/30/2024 1 1 Reason Comments Urinary Frequency Frequency, urgency a nd burning x 5 days Reason Comments HHC Order Needs Signed Reason Comments Established Patient Follow Up Reason Comments Follow Up 3 month exam Reason Comments Forms Surgical Clearance Reason Comments Radiology US Specialty Diagnoses / Procedures [facility] Referred To Contact US IMAGING Diagnoses Acute cystitis without hematuria Procedures US KIDNEY/BLADDER US RETROPERITONEAL REAL TIME W/IMAGE COMPLETE Abena Beckford, HIRAM.DIRECTOR OF TESTING [address] [place] [address] [place] [address] Referral ID Status Reason Start Date Expiration Date V isits Requested Visits Authorized [id number] Closed Auto-Generate d Referral 12/29/2023 01/27/2025 1 1 Reason Comments Benign Prostatic Hypertrophy Specialty Diagnoses / Procedures [facility] Referred To Contact Urology Diagnoses Urinary retention Hydronephrosis, unspecified hydronephrosis type Procedures CONSULT TO UROLOGY OFFICE/OUTPATIENT [facility] 60 MINUTES Navin Ackerman MD [address] [place] [address] Referral ID Status Reason Start Date Expiration Date V isits Requested Visits Authorized [id number] Closed PCP Requested Referral 12/31/2023 12/30/2024 1 1 Reason Comments Follow Up Ultrasound follow up Reason Comments Follow Up Benign Prostatic Hypertrophy Specialty Diagnoses / Procedures [facility] Referred To Contact Urology Diagnoses Urinary retention Hydronephrosis, unspecified hydronephrosis type Procedures CONSULT TO UROLOGY OFFICE/OUTPATIENT NEW HIGH MDM 60 MINUTES Navin Ackerman MD [address] [place] [address] Reason Comments Follow Up Discharged from [facility] 01/22/2024 Reason Comments Insurance Authorization Reason Comments Social Work Services Reason Comments Med Change Request Other Handicap placard Orders Reason Comments Orders Reason Comments Urinary Retention Established Patient Urinary retention / bladder scan Reason Comments Home Care Reason Comments Benign Prostatic Hypertrophy Urinary Retention BPH with incomplete bladder emptying Reason Comments home health calling Reason Comments Hospital F/U [facility] d/c 03/10/24 Reason Comments PT plan of care Reason Comments [facility]- verbal orders/medication issues Reason Comments Delay of care - verbal needed. Reason Comments home health requesting verbal order Reason Comments [facility] OT Plan of Care ST Order Request Reason Comments [facility]- low blood pressure Reason Comments Blood pressure reading Reason Comments Patient Update Refill Request Reason Comments Results Home Health Point of Care Results Reason Comments Hospital F/U Reason Comments Orders Patient Update Reason Comments Orders Appointment Reason Comments FYI-PT plan of care Reason Comments Urinary Retention Reason Comments [facility] [place] Change Orders Reason Comments [facility] update Reason Comments Nurse Visit Urinary Retention Reason Comments Cystoscopy-1 Trus Procedure Reason Comments Recheck 3 month follow up Reason Comments Surgery Scheduled Reason Onset Date Comments Refill Request 07/21/2023 Reason Comments Home Care MD to follow. 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 Reason Onset Date Comments Refill Request 08/16/2024 Reason Comments [facility] pharmacy r eferral Reason Comments Radio Gen RMP Specialty Diagnoses / Procedures Referred By Contac t Referred To Contact XR IMAGING Diagnoses Pain in joint, multiple sites Procedures XR HAND GENERAL 3V PA/LAT/OBL BILAT X-RAY HAND MINIMUM [address] [place] [address] [place] [address] [place] [address] Referral ID Status Reason Start Date Expiration Date V isits Requested Visits Authorized [id number] Closed Auto-Generate d Referral 09/30/2021 10/30/2022 1 1 Reason Onset Date Comments Refill Request 08/24/2024 Reason Comments Radiology XR Reason Comments Patient Update Home Care Reason Comments Patient Update Orders Reason Comments Post-Op Visit Care Teams (unrecognized sec tion and content) Dean Of Education Relationship Specialty Start Date End Date Navin Ackerman MD [address] [place] [phone] PCP - General Family Practice 08/26/18 Dean Of Education Relationship Specialty Start Date End Date Navin Ackerman MD [address] [place] [phone] PCP - General Family Practice 08/26/18 Dean Of Education Relationship Specialty Start Date End Date Navin Ackerman MD [address] [place] [phone] PCP - General Family Practice 08/26/18 Dean Of Education Relationship Specialty Start Date End Date Navin Ackerman MD [address] [place] [phone] PCP - General Family Practice 08/26/18 Dean Of Education Relationship Specialty Start Date End Date Navin Ackerman MD [address] [place] [id number] PCP - General Family Practice 08/26/18 Dean Of Education Relationship Specialty Start Date End Date Navin Ackerman MD [address] [place] [id number] PCP - General Family Practice 08/26/18 Dean Of Education Relationship Specialty Start Date End Date Navin Ackerman MD [address] [place] [address] PCP - General Family Practice 08/26/18 Dean Of Education Relationship Specialty Start Date End Date Navin Ackerman MD [address] [facility] [place] [address] PCP - General Family Practice 08/26/18 Dean Of Education Relationship Specialty Start Date End Date Navin Ackerman MD [address] [facility] [place] [address] PCP - General Family Practice 08/26/18 Dean Of Education Relationship Specialty Start Date End Date Navin Ackerman MD [address] [facility] [place] [address] PCP - General Family Practice 08/26/18 Dean Of Education Relationship Specialty Start Date End Date Navin Ackerman MD [address] [facility] [place] [address] PCP - General Family Practice 08/26/18 Dean Of Education Relationship Specialty Start Date End Date Navin Ackerman MD [address] [place] [address] PCP - General Family Practice 08/26/18 Dean Of Education Relationship Specialty Start Date End Date Navin Ackerman MD [address] [facility] [place] [address] PCP - General Family Practice 08/26/18 Dean Of Education Relationship Specialty Start Date End Date Marbella Zaidi PA-C [address] [place] [address] PCP - General Family Practice 05/12/22 Dean Of Education Relationship Specialty Start Date End Date Marbella Zaidi PA-C [address] [facility] [place] [address] PCP - General Family Practice 05/12/22 Dean Of Education Relationship Specialty Start Date End Date Navin Ackerman MD [address] [facility] [place] [address] PCP - General Family Practice 08/26/18 05/11/22 Marbella Zaidi PA-C [address] [facility] [place] [address] PCP - General Family Practice 05/12/22 Dean Of Education Relationship Specialty Start Date End Date Marbella Zaidi PA-C [address] [facility] [place] [address] PCP - General Family Practice 05/12/22 Dean Of Education Relationship Specialty Start Date End Date Marbella Zaidi PA-C [address] [facility] [place] [address] PCP - General Family Practice 05/12/22 Dean Of Education Relationship Specialty Start Date End Date Marbella Zaidi PA-C [address] [place] [place] [address] PCP - General Family Practice 05/12/22 Dean Of Education Relationship Specialty Start Date End Date Marbella Zaidi PA-C [address] [place] [address] PCP - General Family Practice 05/12/22 Dean Of Education Relationship Specialty Start Date End Date Marbella Zaidi PA-C [address] [place] [address] PCP - General Family Medicine 05/12/22 Dean Of Education Relationship Specialty Start Date End Date Marbella Zaidi PA-C [address] [place] [address] PCP - General Family Medicine 05/12/22 Dean Of Education Relationship Specialty Start Date End Date Marbella Zaidi PA-C [address] [place] [address] PCP - General Family Medicine 05/12/22 Dean Of Education Relationship Specialty Start Date End Date Marbella Zaidi PA-C [address] [place] [address] PCP - General Family Medicine 05/12/22 Dean Of Education Relationship Specialty Start Date End Date Marbella Zaidi PA-C [address] [facility] [place] [address] PCP - General Family Medicine 05/12/22 Dean Of Education Relationship Specialty Start Date End Date Marbella Zaidi PA-C [address] [facility] [place] [address] PCP - General Family Medicine 05/12/22 Dean Of Education Relationship Specialty Start Date End Date Marbella Zaidi PA-C [address] [facility] [place] [address] PCP - General Family Medicine 05/12/22 Dean Of Education Relationship Specialty Start Date End Date Marbella Zaidi PA-C [address] [facility] [place] [address] PCP - General Family Medicine 05/12/22 Dean Of Education Relationship Specialty Start Date End Date Marbella Zaidi PA-C [address] [facility] [place] [address] PCP - General Family Medicine 05/12/22 Dean Of Education Relationship Specialty Start Date End Date Marbella Zaidi PA-C [address] [facility] [place] [address] PCP - General Family Medicine 05/12/22 Dean Of Education Relationship Specialty Start Date End Date Marbella Zaidi PA-C [address] [facility] [place] [address] PCP - General Family Medicine 05/12/22 Dean Of Education Relationship Specialty Start Date End Date Marbella Zaidi PA-C [address] [facility] [place] [address] PCP - General Family Medicine 05/12/22 Dean Of Education Relationship Specialty Start Date End Date Marbella Zaidi PA-C [address] [facility] [place] [address] PCP - General Family Medicine 05/12/22 Dean Of Education Relationship Specialty Start Date End Date Marbella Zaidi PA-C [address] [facility] [place] [address] PCP - General Family Medicine 05/12/22 Dean Of Education Relationship Specialty Start Date End Date Marbella Zaidi PA-C [address] [facility] [place] [address] PCP - General Family Medicine 05/12/22 Dean Of Education Relationship Specialty Start Date End Date Marbella Zaidi PA-C [address] [place] [address] PCP - General Family Medicine 05/12/22 Dean Of Education Relationship Specialty Start Date End Date Marbella Zaidi PA-C [address] [facility] [place] [place] [address] PCP - General Family Medicine 05/12/22 Dean Of Education Relationship Specialty Start Date End Date Marbella Zaidi PA-C [address] [facility] [place] [address] PCP - General Family Medicine 05/12/22 Dean Of Education Relationship Specialty Start Date End Date Marbella Zaidi PA-C [address] [place] [address] PCP - General Family Medicine 05/12/22 Dean Of Education Relationship Specialty Start Date End Date Marbella Zaidi PA-C [address] [place] [address] PCP - General Family Medicine 05/12/22 Dean Of Education Relationship Specialty Start Date End Date Marbella Zaidi PA-C [address] [place] [address] PCP - General Family Medicine 05/12/22 Dean Of Education Relationship Specialty Start Date End Date Marbella Zaidi PA-C [address] [place] [address] PCP - General Family Medicine 05/12/22 Dean Of Education Relationship Specialty Start Date End Date Marbella Zaidi PA-C [address] [place] [address] PCP - General Family Medicine 05/12/22 Dean Of Education Relationship Specialty Start Date End Date Marbella Zaidi PA-C [address] [place] [address] PCP - General Family Medicine 05/12/22 Dean Of Education Relationship Specialty Start Date End Date Marbella Zaidi PA-C [address] [place] [address] PCP - General Family Medicine 05/12/22 Dean Of Education Relationship Specialty Start Date End Date Marbella Zaidi PA-C [address] [place] [address] PCP - General Family Medicine 05/12/22 Dean Of Education Relationship Specialty Start Date End Date Marbella Zaidi PA-C [address] [place] [address] PCP - General Family Medicine 05/12/22 Dean Of Education Relationship Specialty Start Date End Date Marbella Zaidi PA-C [address] [place] [address] PCP - General Family Medicine 05/12/22 Dean Of Education Relationship Specialty Start Date End Date Marbella Zaidi PA-C [address] [facility] [place] [address] PCP - General Family Medicine 05/12/22 Dean Of Education Relationship Specialty Start Date End Date Marbella Zaidi PA-C [address] [facility] [place] [address] PCP - General Family Medicine 05/12/22 Dean Of Education Relationship Specialty Start Date End Date Marbella Zaidi PA-C [address] [facility] [place] [address] PCP - General Family Medicine 05/12/22 Dean Of Education Relationship Specialty Start Date End Date Marbella Zaidi PA-C [address] [facility] [place] [address] PCP - General Family Medicine 05/12/22 Dean Of Education Relationship Specialty Start Date End Date Marbella Zaidi PA-C [address] [facility] [place] [address] PCP - General Family Medicine 05/12/22 Dean Of Education Relationship Specialty Start Date End Date Marbella Zaidi PA-C [address] [facility] [place] [address] PCP - General Family Medicine 05/12/22 Dean Of Education Relationship Specialty Start Date End Date Marbella Zaidi PA-C [address] [facility] [place] [address] PCP - General Family Medicine 05/12/22 Dean Of Education Relationship Specialty Start Date End Date Marbella Zaidi PA-C [address] [facility] [place] [address] PCP - General Family Medicine 05/12/22 Dean Of Education Relationship Specialty Start Date End Date Marbella Zaidi PA-C [address] [place] [address] PCP - General Family Medicine 05/12/22 Dean Of Education Relationship Specialty Start Date End Date Marbella Zaidi PA-C [address] [place] [address] PCP - General Family Medicine 05/12/22 Dean Of Education Relationship Specialty Start Date End Date Marbella Zaidi PA-C [address] [place] [address] PCP - General Family Medicine 05/12/22 Dean Of Education Relationship Specialty Start Date End Date Marbella Zaidi PA-C [address] [place] [address] PCP - General Family Medicine 05/12/22 Dean Of Education Relationship Specialty Start Date End Date Marbella Zaidi PA-C [address] [place] [address] PCP - General Family Medicine 05/12/22 Dean Of Education Relationship Specialty Start Date End Date Marbella Zaidi PA-C [address] [place] [address] PCP - General Family Medicine 05/12/22 Dean Of Education Relationship Specialty Start Date End Date Marbella Zaidi PA-C [address] [place] [address] PCP - General Family Medicine 05/12/22 Dean Of Education Relationship Specialty Start Date End Date Marbella Zaidi PA-C [address] [facility] [place] [address] PCP - General Family Medicine 05/12/22 Dean Of Education Relationship Specialty Start Date End Date Marbella Zaidi PA-C [address] [facility] [place] [address] PCP - General Family Medicine 05/12/22 Dean Of Education Relationship Specialty Start Date End Date Marbella Zaidi PA-C [address] [facility] [place] [address] PCP - General Family Medicine 05/12/22 Dean Of Education Relationship Specialty Start Date End Date Marbella Zaidi PA-C [address] [facility] [place] [address] PCP - General Family Medicine 05/12/22 Dean Of Education Relationship Specialty Start Date End Date Marbella Zaidi PA-C [address] [facility] [place] [address] PCP - General Family Medicine 05/12/22 Dean Of Education Relationship Specialty Start Date End Date Marbella Zaidi PA-C [address] [facility] [place] [address] PCP - General Family Medicine 05/12/22 Dean Of Education Relationship Specialty Start Date End Date Marbella Zaidi PA-C [address] [facility] [place] [address] PCP - General Family Medicine 05/12/22 Dean Of Education Relationship Specialty Start Date End Date Marbella Zaidi PA-C [address] [facility] [place] [address] PCP - General Family Medicine 05/12/22 Dean Of Education Relationship Specialty Start Date End Date Marbella Zaidi PA-C [address] [place] [address] PCP - General Family Medicine 05/12/22 Dean Of Education Relationship Specialty Start Date End Date Marbella Zaidi PA-C [address] [place] [address] PCP - General Family Medicine 05/12/22 Dean Of Education Relationship Specialty Start Date End Date Marbella Zaidi PA-C [address] [place] [address] PCP - General Family Medicine 05/12/22 Dean Of Education Relationship Specialty Start Date End Date Marbella Zaidi PA-C [address] [place] [address] PCP - General Family Medicine 05/12/22 Dean Of Education Relationship Specialty Start Date End Date Marbella Zaidi PA-C [address] [place] [address] PCP - General Family Medicine 05/12/22 Dean Of Education Relationship Specialty Start Date End Date Marbella Zaidi PA-C [address] [place] [address] PCP - General Family Medicine 05/12/22 Dean Of Education Relationship Specialty Start Date End Date Marbella Zaiid PA-C [address] [place] [address] PCP - General Family Medicine 05/12/22 Dean Of Education Relationship Specialty Start Date End Date Marbella Zaidi PA-C [address] [place] [address] PCP - General Family Medicine 05/12/22 Dean Of Education Relationship Specialty Start Date End Date Marbella Zaidi PA-C [address] [facility] [place] [address] PCP - General Family Medicine 05/12/22 Dean Of Education Relationship Specialty Start Date End Date Marbella Zaidi PA-C [address] [facility] [place] [address] PCP - General Family Medicine 05/12/22 Dean Of Education Relationship Specialty Start Date End Date Marbella Zaidi PA-C [address] [facility] [place] [address] PCP - General Family Medicine 05/12/22 Dean Of Education Relationship Specialty Start Date End Date Marbella Zaidi PA-C [address] [facility] [place] [address] PCP - General Family Medicine 05/12/22 Dean Of Education Relationship Specialty Start Date End Date Marbella Zaidi PA-C [address] [facility] [place] [address] PCP - General Family Medicine 05/12/22 Dean Of Education Relationship Specialty Start Date End Date Marbella Zaidi PA-C [address] [facility] [place] [address] PCP - General Family Medicine 05/12/22 Dean Of Education Relationship Specialty Start Date End Date Marbella Zaidi PA-C [address] [facility] [place] [address] PCP - General Family Medicine 05/12/22 Dean Of Education Relationship Specialty Start Date End Date Marbella Zaidi PA-C [address] [facility] [place] [address] PCP - General Family Medicine 05/12/22 Dean Of Education Relationship Specialty Start Date End Date Marbella Zaidi PA-C [address] [facility] [place] [address] PCP - General Family Medicine 05/12/22 Dean Of Education Relationship Specialty Start Date End Date Marbella Zaidi PA-C [address] [facility] [place] [address] PCP - General Family Medicine 05/12/22 Dean Of Education Relationship Specialty Start Date End Date Marbella Zaidi PA-C [address] [facility] [place] [address] PCP - General Family Medicine 05/12/22 Dean Of Education Relationship Specialty Start Date End Date Marbella Zaidi PA-C [address] [facility] [place] [address] PCP - General Family Medicine 05/12/22 Dean Of Education Relationship Specialty Start Date End Date Marbella Zaidi PA-C [address] [facility] [place] [address] PCP - General Family Medicine 05/12/22 Dean Of Education Relationship Specialty Start Date End Date Marbella Zaidi PA-C [address] [facility] [place] [address] PCP - General Family Medicine 05/12/22 Dean Of Education Relationship Specialty Start Date End Date Marbella Zaidi PA-C [address] [facility] [place] [address] PCP - General Family Medicine 05/12/22 Dean Of Education Relationship Specialty Start Date End Date Marbella Zaidi PA-C [address] [place], [place] 236031 PCP - General Family Medicine 05/12/22 Dean Of Education Relationship Specialty Start Date End Date Marbella Zaidi PA-C [address] [place], [place] 699401 PCP - General Family Medicine 05/12/22 Abena Beckford APRN.DIRECTOR OF TESTING [address] [place], [place] 201791 Home Care Provider Family Medicine 07/26/24 Vicente Quintana MD [address] [place] [phone] Referring Urology 07/26/24 Eugene Uriarte RN [address] [place], [place] [id number] Receptionist Telephone Operator Post Acute Care 07/26/24 Dean Of Education Relationship Specialty Start Date End Date Marbella Zaidi PA-C [address] [place] [address] PCP - General Family Medicine 05/12/22 Abena Beckford, FOOD AIDE.DIRECTOR OF TESTING [address] [place] [address] Home Care Provider Family Medicine 07/26/24 Vicente Quintana MD [address] [place] [address] [phone] Referring Urology 07/26/24 Eugene Uriarte RN [address] [place] [address] Receptionist Telephone Operator Post Acute Care 07/26/24 Dean Of Education Relationship Specialty Start Date End Date Marbella Zaidi PA-C [address] [place] [address] PCP - General Family Medicine 05/12/22 Abena Beckford, FOOD AIDE.DIRECTOR OF TESTING [address] [place] [address] Home Care Provider Family Medicine 07/26/24 Vicente Quintana MD [address] [place] [address] [phone] Referring Urology 07/26/24 Eugene Uriarte RN [address] [place] [address] Receptionist Telephone Operator Post Acute Care 07/26/24 Dean Of Education Relationship Specialty Start Date End Date Marbella Zaidi PA-C [address] [place] [address] PCP - General Family Medicine 05/12/22 Abena Beckford, FOOD AIDE.DIRECTOR OF TESTING [address] [place] [address] Home Care Provider Family Medicine 07/26/24 Vicente Quintana MD [address] [place] [address] [phone] Referring Urology 07/26/24 Eugene Uriarte RN [address] [place] [address] Receptionist Telephone Operator Post Acute Care 07/26/24 Dean Of Education Relationship Specialty Start Date End Date Marbella Zaidi PA-C [address] [place] [address] PCP - General Family Medicine 05/12/22 Abena Beckford APRN.DIRECTOR OF TESTING [address] [place] [address] Home Care Provider Family Medicine 07/26/24 Vicente Quintana MD [address] [place] [address] [phone] Referring Urology 07/26/24 Eugene Uriarte, IMMANUEL [address] [place], [place] [id number] Receptionist Telephone Operator Post Acute Care 07/26/24 Dean Of Education Relationship Specialty Start Date End Date Marbella Zaidi PA-C [address] [place] [address] PCP - General Family Medicine 05/12/22 Abena Beckford APRN.DIRECTOR OF TESTING [address] [place] [address] Home Care Provider Family Medicine 07/26/24 Vicente Quintana MD [address] [place] [address] [phone] Referring Urology 07/26/24 Eugene Uriarte, IMMANUEL [address] [place] [address] Receptionist Telephone Operator Post Acute Care 07/26/24 Dean Of Education Relationship Specialty Start Date End Date Marbella Zaidi PA-C [address] [place] [address] PCP - General Family Medicine 05/12/22 Abena Beckford APRN.DIRECTOR OF TESTING [address] [place] [address] Home Care Provider Family Medicine 07/26/24 Vicente Quintana MD [address] [place] [address] [phone] Referring Urology 07/26/24 Eugene Uriarte RN [address] [place], [place] [phone] Receptionist Telephone Operator Post Acute Care 07/26/24 Dean Of Education Relationship Specialty Start Date End Date Marbella Zaidi PA-C [address] [place] [address] PCP - General Family Medicine 05/12/22 Abena Beckford, FOOD AIDE.DIRECTOR OF TESTING [address] [place] [address] Home Care Provider Family Medicine 07/26/24 Vicente Quintana MD [address] [place] [address] [phone] Referring Urology 07/26/24 Eugene Uriarte RN [address] [place], [place] [phone] Receptionist Telephone Operator Post Acute Care 07/26/24 Dean Of Education Relationship Specialty Start Date End Date Marbella Zaidi PA-C [address] [place] [address] PCP - General Family Medicine 05/12/22 Abena Beckford, HIRAM.DIRECTOR OF TESTING [address] [place] [address] Home Care Provider Family Medicine 07/26/24 Vicente Quintana MD [address] [place] [phone] Referring Urology 07/26/24 Eugene Uriarte, IMMANUEL [address] [place] [address] Receptionist Telephone Operator Post Acute Care 07/26/24 Dean Of Education Relationship Specialty Start Date End Date Marbella Zaidi PA-C [address] [place] [address] PCP - General Family Medicine 05/12/22 Abena Beckford, FOOD AIDE.DIRECTOR OF TESTING [address] [place], [place] 349831 Home Care Provider Family Medicine 07/26/24 [place] [address] [place] [address] [phone] Referring Urology 07/26/24 Eugene Uriarte, IMMANUEL [address] [place], [place] [phone] Receptionist Telephone Operator Post Acute Care 07/26/24 Dean Of Education Relationship Specialty Start Date End Date Marbella Zaidi PA-C [address] [place] [address] PCP - General Family Medicine 05/12/22 Abena Beckford, FOOD AIDE.DIRECTOR OF TESTING [address] [place] [address] Home Care Provider Family Medicine 07/26/24 [place] [address] [place] [address] [phone] Referring Urology 07/26/24 Eugene Uriarte RN [address] [place] [address] Receptionist Telephone Operator Post Acute Care 07/26/24 Dean Of Education Relationship Specialty Start Date End Date Marbella Zaidi PA-C [address] [place] [address] PCP - General Family Medicine 05/12/22 Dean Of Education Relationship Specialty Start Date End Date Marbella Zaidi PA-C [address] [place], [place] 563211 PCP - General Family Medicine 05/12/22 Abena Beckford APRN.DIRECTOR OF TESTING [address] [place] [address] Home Care Provider Family Medicine 07/26/24 Vicente Quintana MD [address] [place] [phone] Referring Urology 07/26/24 Eugene Uriarte RN [address] [place] [address] Receptionist Telephone Operator Post Acute Care 07/26/24 Dean Of Education Relationship Specialty Start Date End Date Marbella Zaidi PA-C [address] [place] [address] PCP - General Family Medicine 05/12/22 Abena Beckford APRN.DIRECTOR OF TESTING [address] [place] [address] Home Care Provider Family Medicine 07/26/24 Vicente Quintana MD [address] [place] [address] [phone] Referring Urology 07/26/24 Eugene Uriarte, IMMANUEL [address] [place], [place] [id number] Receptionist Telephone Operator Post Acute Care 07/26/24 Dean Of Education Relationship Specialty Start Date End Date Marbella Zaidi PA-C [address] [place] [address] PCP - General Family Medicine 05/12/22 Abena Beckford APRN.DIRECTOR OF TESTING [address] [place], [place] 587391 Home Care Provider Family Medicine 07/26/24 Vicente Quintana MD [address] [place] [address] [phone] Referring Urology 07/26/24 Eugene Uriarte RN [address] [place] [address] Receptionist Telephone Operator Post Acute Care 07/26/24 Dean Of Education Relationship Specialty Start Date End Date Navin Ackerman MD [address] [place], [place] 968351 PCP - General Family Medicine 08/26/18 05/11/22 Dean Of Education Relationship Specialty Start Date End Date Marbella Zaidi PA-C [address] [place], [place] 0[address]61 PCP - General Family Medicine 05/12/22 Abena Beckford APRN.DIRECTOR OF TESTING [address] [place], [place] 99923691 Home Care Provider Family Medicine 07/26/24 Vicente Quintana MD [address] [place] [phone] Referring Urology 07/26/24 Eugene Uriarte RN [address] [place] [address] Receptionist Telephone Operator Post Acute Care 07/26/24 Dean Of Education Relationship Specialty Start Date End Date Navin Ackerman MD [address] [place] [address] PCP - General Family Medicine 08/26/18 05/11/22 Dean Of Education Relationship Specialty Start Date End Date Navin Ackerman MD [address] [place], [place] 450611 PCP - General Family Medicine 08/26/18 05/11/22 Dean Of Education Relationship Specialty Start Date End Date Marbella Zaidi PA-C [address] [place] [address] PCP - General Family Medicine 05/12/22 Abena Beckford APRN.CNP [address] [place], [place] 237581 Home Care Provider Family Medicine 07/26/24 [place] [address] [place] [phone] Referring Urology 07/26/24 Eugene Uriarte, IMMANUEL [address] [place] [address] Receptionist Telephone Operator Post Acute Care 07/26/24 Inactive Administered Medications - up to 3 most recent administrations Administered Medications (un recognized section and content) Medication Order MAR Action Action Date Dose Rate Site cephALEXin 500 mg cap(s) (KEFLEX) 500 mg, ORAL, ONCE, 1 dose, On Wed02/09/24 at 1500, Antimicrobial indication: Empiric Given 02/09/2024 2:00 PM EDT 500 mg Oral lidocaine urojet 2 % 6 mL topical gel (GLYDO) 6 mL, URETHRAL, ONCE (UP TO 30 DAYS AMB), 1 dose, On Wed02/09/24 at 1500, FOR EXTERNAL USE ONLY APPLY TO: PENIS Given 02/09/2024 2:10 PM EDT 6 mL Pe nis FOR RECORDS PERTAINING TO PATIENTS WHO ARE OR HAVE BEEN ENROLLED IN A CHEMICAL DEPENDENCY/SUBSTANCEABUSE PROGRAM, SOME INFORMATION MAY BE OMITTED. This clinical summary was aggregated from multiple sources. Caution should be exercised in using it in the provision of clinical care. This summary normalizes information from multiple sources, and as a consequence, information in this document may materially change the coding, format and clinical context of patient data. In addition, data may be omitted in some cases. CLINICAL DECISIONS SHOULD BE BASED ON THE PRIMARY CLINICAL RECORDS. [employer] provides no warranty or guarantee of the accuracy or completeness of information in this document.
--- NOTE | 2024-09-12 20:07 | ED.VIS.FALL ---
HPI HPI - Fall History of Present Illness Chief Complaint: Fall Narrative Narrative: 74-year-old male presents via EMS with generalized weakness status post fall. He states that he had surgery for BPH, and currently lives at home alone. His home health nurses supposed to come tomorrow. 6 to 8 hours prior to arrival, he states he had a fall. He has history of frequent falls and weakness. He was unable to get up. He had called his electronic service, [place], and told them to call his sister in [place]. I believe she called EMS to check on him. He states that he had fallen before and was able to get up but managed to get in bed but fell again. By the time paramedics arrived, he states he was sitting in his wheelchair. He did not want to come to the hospital, but he was able to be convinced by EMS that he should be evaluated. He states that he must of spent 6 to 8 hours on the floor because he could not get up because of generalized weakness. [facility] Medical History Vision loss of right eye Anxiety Depression GERD (gastroesophageal reflux disease) Hypertension Right femoral fracture History of fractured rib (08/12/20) Anxiety Essential (primary) hypertension Hepatitis A Osteoarthritis Home Medications ?Medication ?Instructions ?Recorded ?Last Taken ?Type amlodipine 10 mg tablet 10 mg PO DAILY BLOOD PRESSURE 10/28/20 01/08/24 History gabapentin 300 mg capsule 600 mg PO TID NEUROPATHY 03/29/22 01/08/24 History tamsulosin 0.4 mg capsule 0.4 mg PO QHS PROSTATE 03/11/23 01/08/24 History bupropion HCl 300 mg 24 hr tablet, 300 mg PO DAILY DEPRESSION 09/28/23 01/08/24 History extended release lisinopril 20 mg tablet 20 mg PO DAILY BLOOD PRESSURE 09/28/23 01/08/24 History melatonin 5 mg tablet 5 mg PO QHS SLEEP 09/28/23 01/08/24 History trazodone 50 mg tablet 50 mg PO QHS SLEEP 09/28/23 02/16/24 History acetaminophen 500 mg tablet 1,000 mg (2 x 500 mg) PO Q6H PRN 03/07/24 Unknown Rx PRN Pain Score 1-5 #0 tabs potassium chloride 20 mEq 20 meq PO DAILYCM 30 days #30 tabs 03/07/24 Unknown Rx tablet,extended release(part/cryst) ferrous sulfate 324 mg (65 mg mg PO 09/12/24 Unknown History iron) tablet,delayed release meclizine 12.5 mg tablet 12.5 mg PO TID 09/12/24 Unknown History Allergy/AdvReac Type Severity Reaction Status Date / Time diltiazem (From Cardizem) AdvReac unknown Verified 06/21/24 15:43 losartan (From Hyzaar) AdvReac unknown Verified 06/21/24 15:43 metoprolol (From Lopressor) AdvReac unknown Verified 06/21/24 15:43 valsartan (From Diovan) AdvReac unknown Verified 06/21/24 15:43 Family History Mother Heart disease Cancer breast Sister Heart disease Surgical History History of lumbar laminectomy for spinal cord decompression History of shoulder surgery History of elbow surgery History of hip replacement Social History household members: none Smoking Status: Former smoker quit date: 11/22/92 pack-years: 46 alcohol intake: former year quit: 1991 substance use type: does not use ROS ROS ED ROS Narrative Constitutional: No fever, no chills. Generalized weakness. Denies injury from falls. Positive frequent falls, unable to get up. HEENT: No sore throat. No neck pain. No loss of vision. No rhinorrhea. Cardiovascular: No chest pain. No palpitations. No pedal edema. Respiratory: No cough, no shortness of breath. Abdominal: No abdominal pain. No nausea. No vomiting. Genitourinary: No dysuria. No hematuria. Musculoskeletal: No myalgias. No arthralgias. Neurologic: No headaches. No dizziness. No lightheadedness. Skin: No rash. No change in color. EXAM Physical Exam Narrative Exam Narrative: GCS 15. ABCs intact. Cardiovascular examination reveals a regular rate and rhythm. Lungs are clear to auscultation bilaterally. Abdomen is soft, nontender, with normal active bowel sounds. Moves all extremities. Neurological examination is nonfocal and nonlateralizing. Awake, alert, oriented. Positive indwelling Dowling catheter. Const Vital Signs: 09/12/24 17:33 09/12/24 18:38 09/12/24 19:33 Temperature 98 F Temperature Source Oral Pulse Rate 85 81 Respiratory Rate 16 18 Respiratory Effort Normal Non-Labored Blood Pressure 113/72 139/91 H Blood Pressure Mean 85 107 Pulse Ox 97 98 Oxygen Delivery Method Room Air Room Air 09/12/24 21:00 09/12/24 22:20 Temperature 96.5 F L Temperature Source Temporal Pulse Rate 79 82 Respiratory Rate 16 18 Respiratory Effort Blood Pressure 136/91 H Blood Pressure Mean 106 Pulse Ox 97 97 Oxygen Delivery Method Room Air Room Air MDM MDM MDM Narrative Medical decision making narrative: Given his frequent falls, differential diagnosis includes but not limited to dehydration versus electrolyte imbalance versus urinary tract infection. As he states he was on the floor for 6 to 8 hours, concern would also be for rhabdomyolysis. RN ordered laboratories per protocol were obtained and reviewed. He has slight elevation in his white count of 11.5, hemoglobin 13.0, hematocrit 40.1. Sodium is normal at 139, potassium 4.1, BUN of 19 with creatinine 1.35 but he has history of chronic kidney injury. Glucose appropriate elevated at 163. I did add a CK. Urinalysis is positive for infection with positive nitrites, 500 leukocyte esterase with 50-100 WBCs. This was sent for culture and he was started on Rocephin 1 g IV. He may require a change in antibiotics to Zosyn. I did order a CT of the brain given his frequent falls. I reviewed his laboratory work that remained, and his CK was normal at 101, no evidence of rhabdomyolysis. Chest x-ray in 1 view interpreted by myself independently shows no evidence of acute process, no pneumonia. I reviewed the radiology report which confirms my independent interpretation. I reviewed the CT radiology report of the brain and there is no acute hemorrhage, there is chronic small vessel ischemia, as well as old lacunar infarcts. At this point in time, patient is unable to get up and walk independently. As he lives at home alone, he is agreeable to be admitted and have PT and OT eval for possible placement and rehab at least temporarily. Patient will be discussed with the hospitalist. Disposition is admit in stable condition. History & Record Review Discussion w/independent historian: Patient Additional record(s) reviewed:: Prior ED visit (Prior complicated UTIs. Sometimes grows out Pseudomonas.) Lab Data Attestation: I reviewed the patient's lab results. Labs: Laboratory Results - last 24 hr 09/12/24 09/12/24 19:12 19:44 WBC 11.5 H RBC 4.42 L Hgb 13.0 Hct 40.1 MCV 90.7 MCH 29.4 MCHC 32.4 RDW Std Deviation 45.3 H RDW Coeff of Matthew 13.6 Plt Count 394 MPV 8.8 Immature Gran % (Auto) 0.400 Neut % (Auto) 78.8 H Lymph % (Auto) 10.2 L [place] % (Auto) 7.5 Eos % (Auto) 2.3 Baso % (Auto) 0.8 Absolute Neuts (auto) 9.0 H Absolute Lymphs (auto) 1.17 Nucleated RBC % 0 Sodium 139 Potassium 4.1 Chloride 106 Carbon Dioxide 28.0 Anion Gap 5 BUN 19 H Creatinine 1.35 H Est GFR (MDRD) Af Amer 66 Est GFR (MDRD) Non-Af 55 L BUN/Creatinine Ratio 14.1 Glucose 163 H Calcium 9.4 Total Creatine Kinase 101 Urine Color Yellow Urine Clarity Cloudy Urine pH 7.0 Ur Specific Wilder 1.010 Urine Protein 100 H Urine Glucose (UA) Normal Urine Ketones Negative Urine Occult Blood 150 H Urine Nitrite Positive H Urine Bilirubin Negative Urine Urobilinogen Normal Ur Leukocyte Esterase 500 H Urine RBC 10-25 SEEN Urine WBC 50-100 SEEN Ur Squamous Epith Cells 0 SEEN Urine Bacteria 1+ Urine Mucus 0 SEEN Radiography Diagnostic Testing: Clinical Impression(s) from Imaging Studies Chest X-Ray 09/12/24 18:48 IMPRESSION: No radiographic evidence of acute cardiopulmonary disease. Electronically Signed: Tisha Gaxiola MD at 20:18 EDT , Brain CT 09/12/24 20:09 IMPRESSION: Small vessel ischemia. Low-attenuation foci within the bilateral external capsules and left basal ganglia consistent with old lacunar infarcts. Electronically Signed: Tisha Gaxiola MD at 20:31 EDT , Discharge Plan Dx/Rx/DC Orders Clinical Impression: Weakness, Inability to walk, Inability to perform activities of daily living, Complicated urinary tract infection Disposition Disposition: Acute Care Hospital [facility]
--- NOTE | 2024-09-12 20:09 | CT_ITS ---
INDICATION: Trauma EXAMINATION: CT BRAIN - CT Head or Brain W/O Contrast Injection TECHNIQUE: Multiple axial images were obtained of the head without intravenous contrast. The protocol utilizes one or more of the following dose reduction techniques: automated exposure control, adjustment of mA and/or kV according to patient size,and/or use of iterative reconstruction technique. IV Contrast dosage and agent: None. RADIATION DOSAGE (If Supplied By Facility): CTDIvol = ( 44.99 ) mGy, DLP = ( 829.85 ) mGycm COMPARISON: No relevant prior comparison study available FINDINGS: BRAIN PARENCHYMA: No intra- or extra-axial hemorrhage. There are patchy foci of low attenuation within the white matter of the cerebral hemispheres, a nonspecific finding most commonly reflecting small vessel ischemia. There are low-attenuation foci within the external capsules and the left basal ganglia. No evidence of acute infarct. No intracranial mass or mass effect. There is preservation of the mejia/white matter interface. Posterior fossa structures are unremarkable. CSF SPACES: Appropriate for age. No hydrocephalus. Basal cisterns are patent. CALVARIUM, SKULL BASE, PARANASAL SINUSES AND MASTOID AIR CELLS: Clear. There is a deformity of the left anterior maxillary sinus wall suggestive of an old injury. No discrete lytic or blastic abnormalities. ORBITS: Both globes, extraocular muscles, optic nerves and retrobulbar fat appear unremarkable. ASPECTS Score for Acute Strokes: 10 CT/Brain/Head without Contrast IMPRESSION: Small vessel ischemia. Low-attenuation foci within the bilateral external capsules and left basal ganglia consistent with old lacunar infarcts. Electronically Signed: Tisha Gaxiola MD at 20:31 EDT ,
[2024-09-12] MEDS: Ceftriaxone 1 GM/50 ML BAG IV (20:35)
[2024-09-12 20:42] LABS: CPK Total, Creatine Kinase 101 U/L (39-308)
[2024-09-12 21:00] VITALS: PULSE 79; RESP 16; O2SAT 97
[2024-09-12] MEDS: Acetaminophen 325 MG Tablet 650 MG PO (22:14)
--- NOTE | 2024-09-12 22:16 | PCM.HP.STD ---
[facility] - General General Date of Admission: 09/12/24 Date of Service: 09/12/24 Chief Complaint: Falls at Home. 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 Mr. Peralta reports his symptoms began approximately 6-8 hours prior to arrival after he fell at home where he lives alone. He admits to chronic and progressively worsening generalized weakness complicated by increasingly frequent falls. He then used his 'Cerecor' device to call his sister in [place] who then called EMS to check on him. By the time the paramedics arrived he was was already back up in his wheelchair but he still felt poorly after ~6 hours on the floor so he agreed to be brought in for further evaluation and treatment. He denies LOC or significant head trauma with his fall but he does admit to moderate, aching lower back pain that coincided his falls. There was no associated fever, chills, nausea, vomiting, diarrhea, constipation, abdominal pain, chest pain or SOB but he was noted to have foul-smelling, discolored urine. His family suspects he may not be able to live home alone anymore given his declining health status. In the ER he was confirmed to have Acute Cystitis; with microscopic hematuria with Leukocytosis of 11.5K present on admission complicated by clinical evidence of Generalized Weakness with Ambulatory Dysfunction causing increasingly Frequent Falls with patient then admitted to the general medical floor for ongoing care for a stay that is expected to extend beyond 48 hours. [facility] Medical History (Updated 09/13/24 @ 01:[address] Damaso Payne, DO) Vision loss of right eye Anxiety Depression GERD (gastroesophageal reflux disease) Hypertension Right femoral fracture History of fractured rib (08/12/20) Anxiety Essential (primary) hypertension Hepatitis A Osteoarthritis Home Medications ?Medication ?Instructions ?Recorded ?Last Taken ?Type amlodipine 10 mg tablet 10 mg PO DAILY BLOOD PRESSURE 10/28/20 09/12/24 10:00 History gabapentin 300 mg capsule 600 mg PO TID NEUROPATHY 03/29/22 09/13/24 00:30 History tamsulosin 0.4 mg capsule 0.4 mg PO QHS PROSTATE 03/11/23 09/13/24 00:30 History bupropion HCl 300 mg 24 hr tablet, 300 mg PO DAILY DEPRESSION 09/28/23 09/13/24 00:30 History extended release lisinopril 20 mg tablet 20 mg PO DAILY BLOOD PRESSURE 09/28/23 09/12/24 00:44 History melatonin 5 mg tablet 5 mg PO QHS SLEEP 09/28/23 09/13/24 00:30 History trazodone 50 mg tablet 50 mg PO QHS SLEEP 09/28/23 09/13/24 00:30 History acetaminophen 500 mg tablet 1,000 mg (2 x 500 mg) PO Q6H PRN 03/07/24 Unknown Rx PRN Pain Score 1-5 #0 tabs potassium chloride 20 mEq 20 meq PO DAILYCM 30 days #30 tabs 03/07/24 09/12/24 08:00 Rx tablet,extended release(part/cryst) ferrous sulfate 324 mg (65 mg mg PO DAILY supplement 09/12/24 09/12/24 10:00 History iron) tablet,delayed release 324 mg meclizine 12.5 mg tablet 12.5 mg PO TID vertigo 09/12/24 09/12/24 10:00 History Allergy/AdvReac Type Severity Reaction Status Date / Time diltiazem (From Cardizem) AdvReac unknown Verified 06/21/24 15:43 losartan (From Hyzaar) AdvReac unknown Verified 06/21/24 15:43 metoprolol (From Lopressor) AdvReac unknown Verified 06/21/24 15:43 valsartan (From Diovan) AdvReac unknown Verified 06/21/24 15:43 Family History Mother Heart disease Cancer breast Sister Heart disease Surgical History History of lumbar laminectomy for spinal cord decompression History of shoulder surgery History of elbow surgery History of hip replacement Social History household members: none Smoking Status: Former smoker quit date: 11/22/92 pack-years: 46 alcohol intake: former year quit: 1991 substance use type: does not use ROS ROS Narrative Review of Systems: Constitutional: Patient admits to generalized weakness with frequent falls but he denies fever or chills. Eyes: Patient has chronic vision loss in the Right eye but denies acute changes in vision or discharge from eyes. ENT: Patient denies runny nose, sore throat or ear pain. Resp: Patient denies SOB or cough. CV: Patient denies chest pain, palpitations or heart racing. GI: Patient denies abdominal pain, nausea, vomiting, diarrhea or constipation. : Patient denies dysuria or hematuria. MSK: Patient admits he has back pain since his falls. Skin: Patient denies rash, abscess or jaundice. Neuro: Patient denies headache, paresthesias or focal neurologic deficits. Psych: Patient denies symptoms of uncontrolled depression or anxiety. Allergy: Patient denies lip swelling, tongue swelling or urticaria. Hematology: Patient denies easy bleeding or easy bruisability. Endocrinology: Patient denies polyuria, polydipsia or polyphagia. 14 point ROS otherwise negative except for positives noted above on HPI. Vital Signs Vital Signs Vital Signs: 09/12/24 17:33 09/12/24 18:38 09/12/24 19:33 Temperature 98 F Temperature Source Oral Pulse Rate 85 81 Respiratory Rate 16 18 Respiratory Effort Normal Non-Labored Blood Pressure 113/72 139/91 H Blood Pressure Mean 85 107 Pulse Ox 97 98 Oxygen Delivery Method Room Air Room Air 09/12/24 21:00 Temperature Temperature Source Pulse Rate 79 Respiratory Rate 16 Respiratory Effort Blood Pressure Blood Pressure Mean Pulse Ox 97 Oxygen Delivery Method Room Air Weight Weight: 216 lb 7.903 oz Body Mass Index (BMI) 30.2 Physical Exam Const alert, oriented x3, no apparent distress and average body habitus General Appearance: cooperative HEENT normocephalic, head/scalp atraumatic and hearing grossly normal bilaterally HEENT Narrative: Mucous membranes dry. Eyes PERRL and EOMs intact bilaterally Neck no lymphadenopathy and supple Resp normal respiratory effort, no retractions, no use of accessory muscles and clear to auscultation bilaterally Cardio regular rate and regular rhythm GI normal to inspection, nondistended, normoactive bowel sounds, soft to palpation, non-tender and non-distended Extremity normal to inspection, full ROM and no clubbing, cyanosis or edema Skin Skin Narrative: Patient has no evidence of rash, abscess or jaundice. Neuro oriented x3, CN's II-XII intact bilaterally, moves all extremities and no focal motor deficits Sensorium / Orientation: awake, alert, oriented to person, oriented to place and oriented to time Speech: speech normal Psych affect normal Results Medical Records Data Attestation: I reviewed the patient's medical records Lab / Micro Data Attestation: I reviewed the patient's lab results. 09/12/24 19:12 09/12/24 19:12 Labs: Laboratory Results - last 24 hr 09/12/24 19:12: WBC 11.5 H, RBC 4.42 L, Hgb 13.0, Hct 40.1, MCV 90.7, MCH 29.4, MCHC 32.4, RDW Std Deviation 45.3 H, RDW Coeff of Matthew 13.6, Plt Count 394, MPV 8.8, Immature Gran % (Auto) 0.400, Neut % (Auto) 78.8 H, Lymph % (Auto) 10.2 L, [place] % (Auto) 7.5, Eos % (Auto) 2.3, Baso % (Auto) 0.8, Absolute Neuts (auto) 9.0 H, Absolute Lymphs (auto) 1.17, Nucleated RBC % 0, Sodium 139, Potassium 4.1, Chloride 106, Carbon Dioxide 28.0, Anion Gap 5, BUN 19 H, Creatinine 1.35 H, Est GFR (MDRD) Af Amer 66, Est GFR (MDRD) Non-Af 55 L, BUN/Creatinine Ratio 14.1, Glucose 163 H, Calcium 9.4, Total Creatine Kinase 101 09/12/24 19:44: Urine Color Yellow, Urine Clarity Cloudy, Urine pH 7.0, Ur Specific Carmen 1.010, Urine Protein 100 H, Urine Glucose (UA) Normal, Urine Ketones Negative, Urine Occult Blood 150 H, Urine Nitrite Positive H, Urine Bilirubin Negative, Urine Urobilinogen Normal, Ur Leukocyte Esterase 500 H, Urine RBC 10-25 SEEN, Urine WBC 50-100 SEEN, Ur Squamous Epith Cells 0 SEEN, Urine Bacteria 1+, Urine Mucus 0 SEEN Imaging Radiology Impression Chest X-Ray 09/12/24 18:48 IMPRESSION: No radiographic evidence of acute cardiopulmonary disease. Electronically Signed: Tisha Gaxiola MD at 20:18 EDT , Brain CT 09/12/24 20:09 IMPRESSION: Small vessel ischemia. Low-attenuation foci within the bilateral external capsules and left basal ganglia consistent with old lacunar infarcts. Electronically Signed: Tisha Gaxiola MD at 20:31 EDT Reading Location ID and State: [facility] / [place] Tel , Service support , [facility] Imaging Services [address] [place] [id number] Spine Lumbar without Contrast MR#: [id number] Acct: [id number] Name: MIROSLAVA PERALTA Rep #: [id number] : 1950 M 74 From: Haley Olivier MD PCP: AMANDO Robbins Status: ADM IN Study: Spine Lumbar without Contrast Date of Exam: 09/13/24 Exam# [id number] Ordering Dr: Damaso Payne DO STUDY: CT LUMBAR SPINE WITHOUT CONTRAST REASON FOR EXAM: Male, 74 years old patient with back pain after falls. Evaluate for compression fracture. RADIATION DOSAGE (If Supplied By Facility): CTDIvol = ( 26.25 ) mGy, DLP = ( 841.30 ) mGycm TECHNIQUE: The patient was scanned in a multi detector CT scanner. High resolution transaxial imaging was performed. Images were obtained from T10 to sacrum. Sagittal and coronal images were reconstructed. Individualized dose optimization techniques were used for this CT. COMPARISON: CT abdomen and pelvis dated September 28, 2023. FINDINGS: There is an exaggerated lumbar lordosis. There is no substantial scoliosis. The bones appear osteopenic. There is multilevel spondylosis of the lumbar spine. T12-L1: There is narrowing of the disc space with vacuum disc phenomenon. There is annular disc bulge and osteophyte complex. No foramina are narrowed. There is no central cord canal stenosis. L1-2: There is mild retrolisthesis at this level. There is narrowing of the disk. There is a disc bulge and osteophyte complex. Neural foramina are narrowed. The facet joints are within normal limits. There is no central cord canal stenosis. L2-3: There is moderately large annular disk bulge and osteophyte complex. There is mild degenerative arthropathy of the facet joints. Bilateral neuroforamina are moderately narrowed. There is moderate acquired central canal stenosis. L3-4: There is moderately large annular disk bulge and osteophyte complex. There is mild degenerative arthropathy of the facet joints. Bilateral neuroforamina are severely narrowed. There is moderate acquired central canal stenosis. L4-5: There are small endplate osteophytes. There is narrowing of the disk space with vacuum disk phenomenon. There is moderately severe degenerative arthropathy of bilateral facet joints. There is moderately severe acquired central canal stenosis. There is moderate narrowing of bilateral intervertebral neural foramina. L5-S1: There is mild retrolisthesis at this level. There is vacuum disc phenomenon. There is mild annular disk bulge and osteophyte complex. There is moderately severe degenerative arthropathy of the facet joints. Bilateral neuroforamina are narrowed. There is thickening of the ligamentum flavum. There is mild acquired central canal stenosis. Normal visualized paraspinous soft tissue structures. There is extensive atherosclerotic calcification of the arteries of the abdomen. There appear to be nonobstructing renal calculi measuring up to 1.2 cm in greatest dimension. CT/Spine Lumbar without Contrast IMPRESSION: 1. No CT evidence of acute compression or displaced fracture. 2. Moderately severe multilevel degenerative changes of lumbar spine with no foraminal narrowing and central acquired canal stenosis as described. Electronically Signed: Haley Olivier MD at 4:34 EDT , CC: Dr. Damaso Payne DO; AMANDO Robbins ~ Explosive Expert: Signed Assessment & Plan Assessment/Plan (1) Acute cystitis with hematuria: (2) Generalized weakness: (3) Ambulatory dysfunction: (4) Frequent falls: (5) Inability to perform activities of daily living: (6) Neurogenic bladder: (7) BPPV (benign paroxysmal positional vertigo): QUALIFIERS: Laterality: unspecified laterality Qualified Code(s): H81.10 - Benign paroxysmal vertigo, unspecified ear (8) Neuropathy: (9) Dizziness: (10) Over weight: (11) History of lumbar laminectomy for spinal cord decompression: PLAN: Plan 1. Acute Cystitis; with microscopic hematuria with Leukocytosis of 11.5K present on admission - Admit to general medical floor. Continue empiric IV Rocephin begun in the ER and await culture and sensitivity data. Give Tylenol prn for pain or fever. 2. Generalized Weakness with Ambulatory Dysfunction causing increasingly Frequent Falls with history of BPPV; on prn Meclizine and patient having chronic loss of vision in Right eye with patient no longer safe to live at home alone complicating #1 - CK negative for rhabdomyolysis. Resume Meclizine prn as previous. PT/OT and Case Management to consult and treat on-rounds in the AM for possible placement with help appreciated in advance. 3. Overweight; with BMI of 27.5 this admission compounding #1 & #2 - Weight loss will be recommended. Check TSH in light of #2. This complicates his case and may hamper recovery. 4. History of lumbar laminectomy for spinal cord decompression - Noted. 5. Essential hypertension - Resume home regimen as previous. 6. Osteoarthritis - Give Tyelnol prn. 7. Neuropathy - Continue Gabapentin as before. 8. Depression with anxiety - Maintain current regimen. 9. History of hepatitis A - Noted. 10. History of BPH; with urinary retention on Tamsulosin - Continue Tamsulosin as previous. 11. GERD - Resume PPI. 12. History of Right femoral fracture; s/p THR - Noted. 13. History of admission here from 09/28/2023 to 10/01/2023 for MUNA with hydronephrosis and urinary retention with UTI requiring Dowling catheter placement - Noted. 14. DVT prophylaxis - Lovenox 40 mg sq daily. Total time: Approximately (but not less than) 55 minutes. Charges/Coding Visit Charges Inpatient E&M: 37962 Init Hosp L2
[2024-09-12 22:20] VITALS: BP 136/91; PULSE 82; RESP 18; TEMP 35.8; O2SAT 97
[2024-09-12 22:26] VITALS: BP 136/91; PULSE 82; RESP 18; TEMP 35.8; O2SAT 97
--- OUTSIDE RECORDS SUMMARY | 2024-09-12 22:59 | XMS RPT_ITS ---
Interventions (more content not included)... [facility] THERAPY NT HNO ID: [id number] Author: JULIA Chavez/Madhuri Service: Occupational Therapy Author Type: Occupational Therapist Type: Therapy (PT/OT/Speech/Resp) Filed: 03/31/2022 8:49 AM Note Text: OCCUPATIONAL THERAPY MISSED VISIT SERVICE DATE: 03/31/2022 SERVICE TIME: 0848 to 0848 ROOM: [place] [address] Patient not seen due to No Skilled Needs. Discussed with patient. Pain is under control, no concerns for ADLs, ind in the room. Only concern is being able to acquire elevated toilet seat for home. OT orders discontinued due to no needs at this time. Pt verbalizes understanding. SIGNATURE: JULIA Chavez/Madhuri PATIENT NAME: Miroslava Peralta DATE: March 31, 2022 TIME: 8:48 AM [facility] TYPE AND SCREENon 03-31-2022 ABO A [facility] Comment on above: Order Comment: Speci men Type: BLOOD SPECIMENOrdering Facility: [facility] Address: [address] [place] [address] Performed By: #### T SCR ####[facility] [id number] [address] HISTORICAL AB SCR STATUS Negative [facility] Comment on above: Order Comment: Speci men Type: BLOOD SPECIMENOrdering Facility: [facility] Address: [address] [place] [address] Performed By: #### T SCR ####[facility] [id number] [address] [place] Rh Nom (Bld) Positive [facility] Comment on above: Order Comment: Speci men Type: BLOOD SPECIMENOrdering Facility: [facility] Address: [address] [place] [address] Performed By: #### T SCR ####[facility] [id number] [address] [place] TYPE AND SCREEN EXPIRATION 04/03/2022 23:59 [facility] Comment on above: Order Comment: Speci men Type: BLOOD SPECIMENOrdering Facility: [facility] Address: [facility] [place] [id number] Performed By: #### T SCR ####[facility] [id number] [place] [address] [place] NURSING PROGon 03-30-2022 NURSING PROG HNO ID: [id number] Author: Rachel Villanueva, RN Service: Nursing Author Type: Registered Nurse Type: Nursing Progress Note Filed: 03/30/2022 1:55 PM Note Text: Nursing Progress Note Patient Name: Miroslava Peralta Patient Location: [place] [address]/[facility] Daily Note: 0738: Pt AxOx3, PERRLA, speech [...] This note was completed by: Rachel Villanueva [facility] THERAPY NTon 03-30-2022 THERAPY NT HNO ID: [id number] Author: Melissa Jose, PT, DPT Service: ? Author Type: Physical Therapist Type: Therapy (PT/OT/Speech/Resp) Filed: 03/30/2022 9:34 AM Note Text: Physical Therapy Evaluation SERVICE DATE: 03/30/2022 SERVICE TIME: 0849 to 0920 ROOM: [place] [address] Recommended Discharge Disposition: Home PT Recommended Discharge [...] Reduced mobility- (more content not included)... [facility] CBC W Auto Differential pane l (Bld)on 03-29-2022 Basophils (Bld) [#/Vol] 10*3/uL Normal <0.11 [facility] Comment on above: Order Comment: Speci men Type: BLOOD SPECIMEN Ordering [facility]: [facility] Address: [address] [place] [address] Performed By: #### 2 4323-06, 1988-03 #### [facility] CLIA [id number] [address] [place] [address] [place] Basophils/100 WBC (Bld) 0.2 % [facility] Comment on above: Order Comment: Speci men Type: BLOOD SPECIMEN Ordering Facility: [facility] Address: [address] [place] [address] Performed By: #### 2 4323-06, 1988-03 #### [facility] CLIA [id number] [address] [place] [address] [place] Differential cell count method Nom (Bld) Auto [facility] Comment on above: Order Comment: Speci men Type: BLOOD SPECIMEN Ordering Facility: [facility] Address: [address] [place] [address] Performed By: #### 2 4323-06, 1988-03 #### [facility] CLIA [id number] [address] [place] [address] [place] Eosinophils (Bld) [#/Vol] 10*3/uL Normal <0.46 [facility] Comment on above: Order Comment: Speci men Type: BLOOD SPECIMEN Ordering Facility: [facility] Address: [address] [place] [address] Performed By: #### 2 4323-06, 1988-03 #### [facility] CLIA [id number] [address] [place] [address] [place] Eosinophils/100 WBC (Bld) 0.0 % [facility] Comment on above: Order Comment: Speci men Type: BLOOD SPECIMEN Ordering [facility]: [facility] Address: [address] [place] [address] Performed By: #### 2 4323-06, 1988-03 #### [facility] CLIA [id number] [address] [place] [address] [place] Erythrocyte distribution width (RBC) [Ratio] 12.0 % Normal 11.5-15.0 [facility] Comment on above: Order Comment: Speci men Type: BLOOD SPECIMEN Ordering [facility]: [facility] Address: [address] [place] [address] Performed By: #### 2 4323-06, 1988-03 #### [facility] CLIA [id number] [address] [place] [address] OF [facility] Hematocrit (Bld) [Volume fraction] 42.3 % Normal 39.0-51.0 [facility] Comment on above: Order Comment: Speci men Type: BLOOD SPECIMEN Ordering Facility: [facility] Address: [address] [place] [address] Performed By: #### 2 4323-06, 1988-03 #### [facility] CLIA [id number] [address] [place] [address] OF [place] Hemoglobin (Bld) [Mass/Vol] 14.2 g/dL Normal 13.0-17.0 [facility] Comment on above: Order Comment: Speci men Type: BLOOD SPECIMEN Ordering Facility: [facility] Address: [address] [place] [address] Performed By: #### 2 4323-06, 1988-03 #### [facility] CLIA [id number] [address] [place] [address] OF [place] IMMATURE GRAN % 0.2 % [facility] Comment on above: Order Comment: Speci men Type: BLOOD SPECIMEN Ordering Facility: [facility] Address: [address] [place] [address] Performed By: #### 2 4323-06, 1988-03 #### [facility] CLIA [id number] [address] [place] [address] [place] IMMATURE GRAN ABS <0.03 Normal <0.10 [facility] Comment on above: Order Comment: Speci men Type: BLOOD SPECIMEN Ordering Facility: [facility] Address: [address] [place] [address] Performed By: #### 2 4323-06, 1988-03 #### [facility] CLIA [id number] [address] [place] [address] [facility] [place] Lymphocytes (Bld) [#/Vol] 0.41 10*3/uL Low 1.00-4.00 [facility] Comment on above: Order Comment: Speci men Type: BLOOD SPECIMEN Ordering Facility: [facility] Address: [address] [place] [address] Performed By: #### 2 4323-06, 1988-03 #### [facility] CLIA [id number] [address] [place] [address] Lymphocytes/100 WBC (Bld) 4.8 % [facility] Comment on above: Order Comment: Speci men Type: BLOOD SPECIMEN Ordering Facility: [facility] Address: [address] [place] [address] Performed By: #### 2 4323-06, 1988-03 #### [facility] CLIA [id number] [address] [place] [address] [place] MCH (RBC) [Entitic mass] 31.6 pg Normal 26.0-34.0 [facility] Comment on above: Order Comment: Speci men Type: BLOOD SPECIMEN Ordering Facility: [facility] Address: [address] [place] [address] Performed By: #### 2 4323-06, 1988-03 #### [facility] CLIA [id number] [address] [place] [address] [place] MCHC (RBC) [Mass/Vol] 33.6 g/dL Normal 30.5-36.0 [facility] Comment on above: Order Comment: Speci men Type: BLOOD SPECIMEN Ordering Facility: [facility] Address: [address] [place] [address] Performed By: #### 2 4323-06, 1988-03 #### [facility] CLIA [id number] [address] [place] [address] [place] MCV (RBC) [Entitic vol] 94.2 fL Normal 80.0-100.0 [facility] Comment on above: Order Comment: Speci men Type: BLOOD SPECIMEN Ordering Facility: [facility] Address: [address] [place] [address] Performed By: #### 2 1988-03 #### [facility] CLIA [id number] [place] [address] [place] Monocytes (Bld) [#/Vol] 0.18 10*3/uL Normal <0.87 [facility] Comment on above: Order Comment: Speci men Type: BLOOD SPECIMEN Ordering Facility: [facility] Address: [address] [place] [address] Performed By: #### 2 4323-06, 1988-03 #### [facility] CLIA [id number] [address] [place] [address] [place] Monocytes/100 WBC (Bld) 2.1 % [facility] Comment on above: Order Comment: Speci men Type: BLOOD SPECIMEN Ordering Facility: [facility] Address: [address] [place] [address] Performed By: #### 2 4323-06, 1988-03 #### [facility] CLIA [id number] [address] [place] [address] [place] Neutrophils (Bld) [#/Vol] 7.88 10*3/uL High 1.45-7.50 [facility] Comment on above: Order Comment: Speci men Type: BLOOD SPECIMEN Ordering Facility: [facility] Address: [address] [place] [address] Performed By: #### 2 4323-06, 1988-03 #### [facility] CLIA [id number] [address] [place] [address] [place] Neutrophils/100 WBC (Bld) 92.7 % [facility] Comment on above: Order Comment: Speci men Type: BLOOD SPECIMEN Ordering [facility]: [facility] Address: [address] [place] [address] Performed By: #### 2 4323-06, 1988-03 #### [facility] CLIA [id number] [address] [place] [address] [place] Nucleated RBC (Bld) [#/Vol] 10*3/uL Normal <0.01 [facility] Comment on above: Order Comment: Speci men Type: BLOOD SPECIMEN Ordering Facility: [facility] Address: [address] Performed By: #### 2 4323-06, 1988-03 #### [facility] CLIA [id number] [address] [place] [address] [place] Nucleated RBC/100 WBC (Bld) [Ratio] 0.0 /100 WBC [facility] Comment on above: Order Comment: Speci men Type: BLOOD SPECIMEN Ordering Facility: [facility] Address: [address] [place], [place] [address] Performed By: #### 2 4323-06, 1988-03 #### [facility] CLIA [id number] [address] [place] [address] [place] Platelet mean volume (Bld) [Entitic vol] 9.6 fL Normal 9.0-12.7 [facility] Comment on above: Order Comment: Speci men Type: BLOOD SPECIMEN Ordering Facility: [facility] Address: [address] [place] [address] Performed By: #### 2 4323-06, 1988-03 #### [facility] CLIA [id number] [address] [place] [address] [place] Platelets (Bld) [#/Vol] 258 10*3/uL Normal 150-400 [facility] Comment on above: Order Comment: Speci men Type: BLOOD SPECIMEN Ordering Facility: [facility] Address: [address] [place], [place] [address] Performed By: #### 2 4323-06, 1988-03 #### [facility] CLIA [id number] [address] [place] [address] [place] RBC (Bld) [#/Vol] 4.49 10*6/uL Normal 4.20-6.00 [facility] Comment on above: Order Comment: Speci men Type: BLOOD SPECIMEN Ordering Facility: [facility] Address: [address] [place], [place] [address] Performed By: #### 2 4323-06, 1988-03 #### [facility] CLIA [id number] [address] [place] [address] [place] WBC (Bld) [#/Vol] 8.51 10*3/uL Normal 3.70-11.00 [facility] Comment on above: Order Comment: Speci men Type: BLOOD SPECIMEN Ordering Facility: [facility] Address: [address] [place] [address] Performed By: #### 2 4323-06, 1988-03 #### [facility] CLIA [id number] [address] [place] [address] [place] CRP SerPl-mCncon 03-29-2022 CRP [Mass/Vol] mg/L Normal <0.9 [facility] Comment on above: Order Comment: Speci men Type: BLOOD SPECIMEN Ordering Facility: [facility] Address: [address] [place] [address] Performed By: #### 2 4323-06, 1988-03 #### [facility] CLIA [id number] [address] [place] [address] [place] Comprehensive metabolic 2000 panelon 03-29-2022 Albumin [Mass/Vol] 4.1 g/dL Normal 3.9-4.9 [facility] Comment on above: Order Comment: Speci men Type: BLOOD SPECIMEN Ordering [facility]: [facility] Address: [address] [place] [address] Performed By: #### 2 4323-06, 1988-03 #### [facility] CLIA [id number] [address] [place] [address] [place] ALP [Catalytic activity/Vol] 56 U/L Normal 38-113 [facility] Comment on above: Order Comment: Speci men Type: BLOOD SPECIMEN Ordering Facility: [facility] Address: [address] [place], [place] [address] Performed By: #### 2 4323-06, 1988-03 #### [facility] CLIA [id number] [address] [place] [address] [place] ALT [Catalytic activity/Vol] 10 U/L Normal 10-54 [facility] Comment on above: Order Comment: Speci men Type: BLOOD SPECIMEN Ordering Facility: [facility] Address: [address] Performed By: #### 2 4323-06, 1988-03 #### [facility] CLIA [id number] [address] [place] [address] [place] Anion gap [Moles/Vol] 12 mmol/L Normal 9-18 [facility] Comment on above: Order Comment: Speci men Type: BLOOD SPECIMEN Ordering Facility: [facility] Address: [facility] [address] Performed By: #### 2 4323-06, 1988-03 #### [facility] CLIA [id number] [address] [place] [address] [place] AST [Catalytic activity/Vol] 13 U/L Low 14-40 [facility] Comment on above: Order Comment: Speci men Type: BLOOD SPECIMEN Ordering [facility]: [facility] Address: [facility] [place] [address] Performed By: #### 2 4323-06, 1988-03 #### [facility] CLIA [id number] [address] [place] [address] [place] Bilirubin [Mass/Vol] 0.3 mg/dL Normal 0.2-1.3 [facility] Comment on above: Order Comment: Speci men Type: BLOOD SPECIMEN Ordering Facility: [facility] Address: [facility] [address] Performed By: #### 2 4323-06, 1988-03 #### [facility] CLIA [id number] [address] [place] [address] [place] Calcium [Mass/Vol] 9.2 mg/dL Normal 8.5-10.2 [facility] Comment on above: Order Comment: Speci men Type: BLOOD SPECIMEN Ordering Facility: [facility] Address: [facility] [address] Performed By: #### 2 4323-06, 1988-03 #### [facility] CLIA [id number] [address] [place] [address] [place] Chloride [Moles/Vol] 100 mmol/L Normal 97-105 [facility] Comment on above: Order Comment: Speci men Type: BLOOD SPECIMEN Ordering Facility: [facility] Address: [address] [place] [address] Performed By: #### 2 4323-06, 1988-03 #### [facility] CLIA [id number] [address] [place] [address] [place] CO2 [Moles/Vol] 24 mmol/L Normal 22-30 [facility] Comment on above: Order Comment: Speci men Type: BLOOD SPECIMEN Ordering Facility: [facility] Address: [address] [place] [address] Performed By: #### 2 4323-06, 1988-03 #### [facility] CLIA [id number] [address] [place] [address] [place] Creatinine [Mass/Vol] 0.95 mg/dL Normal 0.73-1.22 [facility] Comment on above: Order Comment: Speci men Type: BLOOD SPECIMEN Ordering Facility: [facility] Address: [address] [place] [address] Performed By: #### 2 4323-06, 1988-03 #### [facility] CLIA [id number] [address] [place] [address] [place] ESTIMATED GLOMERULAR FILTRATION RATE 85 mL/min/1.73m??? Normal >=60 [facility] Comment on above: Order Comment: Speci men Type: BLOOD SPECIMEN Ordering Facility: [facility] Address: [address] [place] [address] Result Comment: Kalani mated Glomerular Filtration Rate [...] reflect actual GFR. Performed By: #### 2 43201-27, 1988-03 #### [facility] CLIA [id number] [place] [address] [place] Glucose [Mass/Vol] 130 mg/dL High 74-99 [facility] Comment on above: Order Comment: Fernanda franks Type: BLOOD SPECIMEN Ordering Facility: [facility] Address: [address] [place] [address] Result Comment: The [place] Diabetes Association (ADA) provides guidance for cutoff [...] Standards of Medical Care in Diabetes 2016, [place] [employer]. Diabetes Care. 2016.39(Suppl 1). Performed By: #### 2 4323-06, 1988-03 #### [facility] CLIA [id number] [address] [place] [address] [place] Potassium [Moles/Vol] 4.8 mmol/L Normal 3.7-5.1 [facility] Comment on above: Order Comment: Fernanda franks Type: BLOOD SPECIMEN Ordering Facility: [facility] Address: [address] [place] [address] Performed By: #### 2 4323-06, 1988-03 #### [facility] CLIA [id number] [address] [place] [address] [place] Protein [Mass/Vol] 7.1 g/dL Normal 6.3-8.0 [facility] Comment on above: Order Comment: Fernanda franks Type: BLOOD SPECIMEN Ordering Facility: [facility] Address: [address] [place] [address] Performed By: #### 2 4323-06, 1988-03 #### [facility] CLIA [id number] [address] [place] [address] [place] Sodium [Moles/Vol] 136 mmol/L Normal 136-144 [facility] Comment on above: Order Comment: Betoi men Type: BLOOD SPECIMEN Ordering Facility: [facility] Address: [address] [place], [place] [address] Performed By: #### 2 43238, 1988-03 #### [facility] CLIA [id number] [place] [address] [place] Urea nitrogen [Mass/Vol] 17 mg/dL Normal 9-24 [facility] Comment on above: Order Comment: Speci men Type: BLOOD SPECIMEN Ordering Facility: [facility] Address: [address] [place] [address] Performed By: #### 2 43238, 1988-03 #### [facility] CLIA [id number] [place] [address] [place] ESR Westergren method (Bld) [Velocity]on 03-29-2022 ESR (Bld) [Velocity] 8 mm/h Normal 0-15 [facility] Comment on above: Order Comment: Speci men Type: BLOOD SPECIMEN Ordering [facility]: [facility] Address: [address] [place] [address] Performed By: #### 4 537-7 #### [facility] CLIA [id number] [address] [place] [address] [place] HISTORY PHYSICALon HISTORY PHYSICAL HNO ID: [id number] Author: Kate Yarbrough APRN.TRANSPORTATION DISPATCH MANAGER Service: Neurosurgery Author Type: Nurse Practitioner Type: [...] after using the toilet. Pt presented to [place] ED for evaluation where he states he [...] arthritis - HTN (hypertension) - Leukocytosis 1986 [facility] admission - thought leukemia and he refused [...] goiter NEURO: N (more content not included)... [facility] NURSING PROGon 03-29-2022 NURSING PROG HNO ID: [id number] Author: Layla Cano RN Service: ? Author [...] This note was completed by: Layla Cano [facility] NURSING PROG O ID: [id number] Author: Rachel Villanueva RN Service: Nursing Author Type: Registered Nurse Type: Nursing Progress Note Filed: 03/29/2022 6:57 PM Note Text: Nursing Progress Note Patient Name: Miroslava Peralta Patient Location: Daily Note: 1220: Pt admitted from [facility] for severe pain s/p laminectomy on 03/20. Pt previously had L3-L5 lami with small L lateral durotomy repair with hospital stay at [facility] from 03/20-03/22. Patient was discharged home [...] with the doctor, the patient, and the shoe caser. The patient has the right to decline going to a facility even if it is recommended. Saima was displeased with this answer. 1856: Pt ambulated pod with RN and walker. This note was completed by: Rachel Castellanos [facility] SARS-CoV-2 RNA Resp Ql CORIN+p pily 03-29-2022 SARS-CoV-2 (COVID-19) RNA OCRIN+probe Ql (Resp) COVID 19 RESULT: SARS-CoV-2 (Agent of COVID-19) Not Detected by RT-PCR or equivalent method. This test has been authorized by FDA under an Emergency Use Authorization (EUA). [facility] Comment on above: Performed By: #### 9 4500-6 #### [facility] CLIA [id number] [address] [place] [address] [place] CNPNery 03-26-2022 CNPN Telephone (NEADFV) MIROSLAVA PERALTA ([id number]) 1950 M [facility]* Date Time Provider Department 03/26/22 BROCK PORTILLO NEBARRYFV During your visit today, we recorded the following information about you: Vanessa Burger [facility] [place] 03/26/2022 12:17 PM Signed Nurse from [facility] at [phone] ext [phone] wanted to speak to the nurse in regards to this patients condition, he is having pain. Krysta Rudd, RN 03/26/2022 12:25 PM Signed Spoke to Carey from [facility] She wanted us to be aware that [...] Fully Assessed Reason for Visit: Nurse from [facility] called [Other] Primary Visit Diagnosis:Pain in right hip [M25.551] Order(s):XR HIP GENERAL 3V PELV/AP/LAT RIGHT [[id number]] Order #: [id number] FUTURE Prescriptions as of 03/26/2022 - docusate [...] Encounter Status:Closed by TIFFANY GARSIA on 03/26/22 [facility] Basic metabolic 2000 panelon 03-22-2022 Anion gap [Moles/Vol] 7 mmol/L Low 9-18 [facility] Comment on above: Order Comment: Speci men Type: BLOOD SPECIMENOrdering Facility: [facility] Address: [address] [place] [address] Performed By: #### 2 4321-2 ####[facility] [id number] [place] [address] [place] Calcium [Mass/Vol] 9.4 mg/dL Normal 8.5-10.2 [facility] Comment on above: Order Comment: Speci men Type: BLOOD SPECIMENOrdering Facility: [facility] Address: [address] [place] [address] Performed By: #### 2 4321-2 ####[facility] [id number] [place] [id number] [place] Chloride [Moles/Vol] 103 mmol/L Normal 97-105 [facility] Comment on above: Order Comment: Speci men Type: BLOOD SPECIMENOrdering Facility: [facility] Address: [address] [place] [address] Performed By: #### 2 4321-2 ####[facility] [id number] [place] [address] [place] CO2 [Moles/Vol] 31 mmol/L High 22-30 [facility] Comment on above: Order Comment: Speci men Type: BLOOD SPECIMENOrdering Facility: [facility] Address: [address] [place] [address] Performed By: #### 2 4321-2 ####[facility] [id number] [place] [id number] [place] Creatinine [Mass/Vol] 0.98 mg/dL Normal 0.73-1.22 [facility] Comment on above: Order Comment: Speci men Type: BLOOD SPECIMENOrdering Facility: [facility] Address: [address] [place] [address] Performed By: #### 2 4321-2 ####CHRISTIAN LABORATORYCLIA [id number] [address] STATES [facility] ESTIMATED GLOMERULAR FILTRATION RATE 82 mL/min/1.73m??? Normal >=60 [facility] Comment on above: Order Comment: Speci men Type: BLOOD SPECIMENOrdering Facility: [facility] Address: [address] [place] [address] Result Comment: Kalani mated Glomerular Filtration Rate [...] actual GFR. Performed By: #### 2 4321-2 ####CHRISTIAN LABORATORYCLIA [id number] [place] [id number] [place] Glucose [Mass/Vol] 96 mg/dL Normal 74-99 [facility] Comment on above: Order Comment: Speci men Type: BLOOD SPECIMENOrdering Facility: [facility] Address: [address] [place] [address] Result Comment: The [place] Diabetes Association (ADA) provides guidance for cutoff [...] Standards of Medical Care in Diabetes 2016, [place]. Diabetes Care. 2016.39(Suppl 1). Performed By: #### 2 4321-2 ####CHRISTIAN LABORATORYCLIA [id number] [place] [address] [place] Potassium [Moles/Vol] 5.3 mmol/L High 3.7-5.1 [facility] Comment on above: Order Comment: Speci men Type: BLOOD SPECIMENOrdering Facility: [facility] Address: [address] [address] Performed By: #### 2 4321-2 ####CHRISTIAN LABORATORYCLIA [id number] [place] [address] [place] Sodium [Moles/Vol] 141 mmol/L Normal 136-144 [facility] Comment on above: Order Comment: Speci men Type: BLOOD SPECIMENOrdering Facility: [facility] Address: [address] Performed By: #### 2 4321-2 ####CHRISTIAN LABORATORYCLIA [id number] [place] [id number] [place] Urea nitrogen [Mass/Vol] 17 mg/dL Normal 9-24 [facility] Comment on above: Order Comment: Speci men Type: BLOOD SPECIMENOrdering Facility: [facility] Address: [address] Performed By: #### 2 4321-2 ####CHRISTIAN LABORATORYCLIA [id number] [address] [place], [place] [id number] [facility] [place] CBC panel Auto (Bld)on 03-22 Erythrocyte distribution width (RBC) [Ratio] 12.6 % Normal 11.5-15.0 [facility] Comment on above: Order Comment: Speci men Type: BLOOD SPECIMENOrdering Facility: [facility] Address: [address] [place] [address] Performed By: #### 5 8410-2 ####CHRISTIAN LABORATORYCLIA [id number] [address] [place] Hematocrit (Bld) [Volume fraction] 42.1 % Normal 39.0-51.0 [facility] Comment on above: Order Comment: Speci men Type: BLOOD SPECIMENOrdering Facility: [facility] Address: [address] [place] [address] Performed By: #### 5 8410-2 ####CHRISTIAN LABORATORYCLIA [id number] [address] [place] Hemoglobin (Bld) [Mass/Vol] 13.9 g/dL Normal 13.0-17.0 [facility] Comment on above: Order Comment: Speci men Type: BLOOD SPECIMENOrdering Facility: [facility] Address: [address] [place] [address] Performed By: #### 5 8410-2 ####CHRISTIAN LABORATORYCLIA [id number] [place] [id number] [facility] [place] MCH (RBC) [Entitic mass] 32.2 pg Normal 26.0-34.0 [facility] Comment on above: Order Comment: Speci men Type: BLOOD SPECIMENOrdering Facility: [facility] Address: [address] [place] [address] Performed By: #### 5 8410-2 ####CHRISTIAN LABORATORYCLIA [id number] [address] [place] MCHC (RBC) [Mass/Vol] 33.0 g/dL Normal 30.5-36.0 [facility] Comment on above: Order Comment: Speci men Type: BLOOD SPECIMENOrdering Facility: [facility] Address: [address] [place] [address] Performed By: #### 5 8410-2 ####CHRISTIAN LABORATORYCLIA [id number] [address] STATES [facility] MCV (RBC) [Entitic vol] 97.5 fL Normal 80.0-100.0 [facility] Comment on above: Order Comment: Speci men Type: BLOOD SPECIMENOrdering Facility: [facility] Address: [address] [place] [address] Performed By: #### 5 8410-2 ####CHRISTIAN LABORATORYCLIA [id number] [address] Nucleated RBC (Bld) [#/Vol] 10*3/uL Normal <0.01 [facility] Comment on above: Order Comment: Speci men Type: BLOOD SPECIMENOrdering Facility: [facility] Address: [address] [place] [address] Performed By: #### 5 8410-2 ####CHRISTIAN LABORATORYCLIA [id number] [address] [place] Platelet mean volume (Bld) [Entitic vol] 10.0 fL Normal 9.0-12.7 [facility] Comment on above: Order Comment: Speci men Type: BLOOD SPECIMENOrdering Facility: [facility] Address: [address] [place] [address] Performed By: #### 5 8410-2 ####CHRISTIAN LABORATORYCLIA [id number] [address] Platelets (Bld) [#/Vol] 226 10*3/uL Normal 150-400 [facility] Comment on above: Order Comment: Speci men Type: BLOOD SPECIMENOrdering Facility: [facility] Address: [address] [place] [address] Performed By: #### 5 8410-2 ####CHRISTIAN LABORATORYCLIA [id number] [place] [address] [place] RBC (Bld) [#/Vol] 4.32 10*6/uL Normal 4.20-6.00 [facility] Comment on above: Order Comment: Speci men Type: BLOOD SPECIMENOrdering Facility: [facility] Address: [address] [place] [address] Performed By: #### 5 8410-2 ####CHRISTIAN LABORATORYCLIA [id number] [place] [address] [place] WBC (Bld) [#/Vol] 13.16 10*3/uL High 3.70-11.00 [facility] Comment on above: Order Comment: Speci men Type: BLOOD SPECIMENOrdering Facility: [facility] Address: [address] [place] [address] Performed By: #### 5 8410-2 ####CHRISTIAN LABORATORYCLIA [id number] [address] OF [facility] CNDSon 03-22-2022 CNDS HNO ID: [id number] Author: Charline Cruz APRN.TRANSPORTATION DISPATCH MANAGER Service: Hospital Medicine Author Type: Nurse Practitioner [...] home. - N (more content not included)... [facility] THERAPY [facility] 03-22-2022 THERAPY NT HNO ID: [id number] Author: Bharathi Almanzar PTA Service: Physical Therapy Author Type: Hogshead Mat Assembler Type: Therapy (PT/OT/Speech/Resp) Filed: 03/22/2022 3:45 PM Note Text: Attestation signed by Berna George PT at 03/25/2022 10:22 AM I reviewed and agree with the documentation corresponding to this therapy visit. SIGNATURE: Berna George PT DATE: March 25, 2022 TIME: 10:21 AM Physical Therapy Treatment SERVICE DATE: 03/22/2022 SERVICE TIME: 1045 to 1127 ROOM: [id number] Recommended Discharge Disposition: Home Anticipated Discharge Needs: [...] Diagnosis: Reduced mobility-other Interventions Provided: Therapeutic Exercise (45554);Therapeutic Activity (67512);Gait Training (61730) Therapeutic Exercise (73878) Treatment Minutes: 15 $ Therapeutic Exercise (74948) Billed Units: 1 unit Therapeutic Activity (41356) Treatment Minutes: 15 $ Therapeutic Activity (22420) Billed Units: 1 unit Gait Training (76289) Treatment Minutes: 12 $ Gait Training (31057) Billed Units: 1 unit Timed Code Treatment (minutes): 42 Skilled Treatment Time (minutes): 42 Please see discipline specific clinical documentation flowsheet for complete details for this therapy evaluation/treatment. SIGNATURE: Bharathi Almanzar PTA PATIENT NAME: Miroslava Peralta DATE: March 22, 2022 TIME: 3:44 PM Normal [facility] Basic metabolic 2000 panelon 03-21-2022 Anion gap [Moles/Vol] 9 mmol/L Normal 9-18 [facility] Comment on above: Order Comment: Speci men Type: BLOOD SPECIMENOrdering Facility: [facility] Address: [address] [place] [address] Performed By: #### 2 4321-2 ####CHRISTIAN LABORATORYCLIA [id number] [place] [address] [place] Calcium [Mass/Vol] 9.1 mg/dL Normal 8.5-10.2 [facility] Comment on above: Order Comment: Speci men Type: BLOOD SPECIMENOrdering Facility: [facility] Address: [address] [place] [address] Performed By: #### 2 4321-2 ####CHRISTIAN LABORATORYCLIA [id number] [place] [address] [place] Chloride [Moles/Vol] 103 mmol/L Normal 97-105 [facility] Comment on above: Order Comment: Speci men Type: BLOOD SPECIMENOrdering Facility: [facility] Address: [address] [place] [address] Performed By: #### 2 4321-2 ####CHRISTIAN LABORATORYCLIA [id number] [place] [id number] [place] CO2 [Moles/Vol] 24 mmol/L Normal 22-30 [facility] Comment on above: Order Comment: Speci men Type: BLOOD SPECIMENOrdering Facility: [facility] Address: [address] [place] [address] Performed By: #### 2 4321-2 ####CHRISTIAN LABORATORYCLIA [id number] [place] [address] [place] Creatinine [Mass/Vol] 0.95 mg/dL Normal 0.73-1.22 [facility] Comment on above: Order Comment: [facility] Type: BLOOD SPECIMENOrdering Facility: [facility] Address: [address] [place], [place] [address] Performed By: #### 2 4321-2 ####CHRISTIAN LABORATORYCLIA [id number] [place] [id number] [place] ESTIMATED GLOMERULAR FILTRATION RATE 85 mL/min/1.73m??? Normal >=60 [facility] Comment on above: Order Comment: Fernanda franks Type: BLOOD SPECIMENOrdering Facility: [facility] Address: [address] [place] [address] Result Comment: Kalani mated Glomerular Filtration Rate [...] actual GFR. Performed By: #### 2 4321-2 ####CHRISTIAN LABORATORYCLIA [id number] [place] [id number] [place] Glucose [Mass/Vol] 145 mg/dL High 74-99 [facility] Comment on above: Order Comment: Fernanda golden Type: BLOOD SPECIMENOrdering Facility: [facility] Address: [address] [place], [place] [address] Result Comment: The [place] Diabetes Association (ADA) provides guidance for cutoff [...] Standards of Medical Care in Diabetes 2016, [place] [employer]. Diabetes Care. 2016.39(Suppl 1). Performed By: #### 2 4321-2 ####CHRISTIAN LABORATORYCLIA [id number] [place] [address] [place] [facility] Potassium [Moles/Vol] 4.5 mmol/L Normal 3.7-5.1 [facility] Comment on above: Order Comment: Fernanda franks Type: BLOOD SPECIMENOrdering Facility: [facility] Address: [address] [place] [address] Performed By: #### 2 4321-2 ####CHRISTIAN LABORATORYCLIA [id number] [address] STATES [facility] Sodium [Moles/Vol] 136 mmol/L Normal 136-144 [facility] Comment on above: Order Comment: Fernanda franks Type: BLOOD SPECIMENOrdering Facility: [facility] Address: [address] [place] [address] Performed By: #### 2 4321-2 ####CHRISTIAN LABORATORYCLIA [id number] [place] [id number] [place] [facility] Urea nitrogen [Mass/Vol] 18 mg/dL Normal 9-24 [facility] Comment on above: Order Comment: Fernanda franks Type: BLOOD SPECIMENOrdering Facility: [facility] Address: [address] [place] [address] Performed By: #### 2 4321-2 ####CHRISTIAN LABORATORYCLIA [id number] [place] [id number] [facility] CASE MANAGEMon 03-21-2022 CASE MANAGEM HNO ID: [id number] Author: Delia Valdes RN Service: ? Author [...] 4:13 PM PAGER/CONTACT #: Delia Valdes RN [phone] Normal [facility] CBC panel Auto (Bld)on 03-21 Erythrocyte distribution width (RBC) [Ratio] 12.2 % Normal 11.5-15.0 [facility] Comment on above: Order Comment: Speci men Type: BLOOD SPECIMENOrdering Facility: [facility] Address: [address] [place] [address] Performed By: #### 5 8410-2 ####CHRISTIAN LABORATORYCLIA [id number] [address] [place] Hematocrit (Bld) [Volume fraction] 42.1 % Normal 39.0-51.0 [facility] Comment on above: Order Comment: Speci men Type: BLOOD SPECIMENOrdering Facility: [facility] Address: [address] [place] [address] Performed By: #### 5 8410-2 ####CHRISTIAN LABORATORYCLIA [id number] [place] [address] [place] Hemoglobin (Bld) [Mass/Vol] 14.2 g/dL Normal 13.0-17.0 [facility] Comment on above: Order Comment: Speci men Type: BLOOD SPECIMENOrdering Facility: [facility] Address: [address] [place] [address] Performed By: #### 5 8410-2 ####CHRISTIAN LABORATORYCLIA [id number] [address] [place] MCH (RBC) [Entitic mass] 32.3 pg Normal 26.0-34.0 [facility] Comment on above: Order Comment: Speci men Type: BLOOD SPECIMENOrdering Facility: [facility] Address: [address] [place] [address] Performed By: #### 5 8410-2 ####CHRISTIAN LABORATORYCLIA [id number] [address] [place] [address] STATES [facility] MCHC (RBC) [Mass/Vol] 33.7 g/dL Normal 30.5-36.0 [facility] Comment on above: Order Comment: Speci men Type: BLOOD SPECIMENOrdering Facility: [facility] Address: [address] [place] [address] Performed By: #### 5 8410-2 ####CHRISTIAN LABORATORYCLIA [id number] [address] [place] MCV (RBC) [Entitic vol] 95.9 fL Normal 80.0-100.0 [facility] Comment on above: Order Comment: Speci men Type: BLOOD SPECIMENOrdering Facility: [facility] Address: [address] [place] [address] Performed By: #### 5 8410-2 ####CHRISTIAN LABORATORYCLIA [id number] [address] STATES [facility] Nucleated RBC (Bld) [#/Vol] 10*3/uL Normal <0.01 [facility] Comment on above: Order Comment: Speci men Type: BLOOD SPECIMENOrdering Facility: [facility] Address: [address] [place] [address] Performed By: #### 5 8410-2 ####CHRISTIAN LABORATORYCLIA [id number] [address] Platelet mean volume (Bld) [Entitic vol] 9.6 fL Normal 9.0-12.7 [facility] Comment on above: Order Comment: Speci men Type: BLOOD SPECIMENOrdering Facility: [facility] Address: [address] [place], [place] [address] Performed By: #### 5 8410-2 ####CHRISTIAN LABORATORYCLIA [id number] [place] [id number] [facility] Platelets (Bld) [#/Vol] 220 10*3/uL Normal 150-400 [facility] Comment on above: Order Comment: Speci men Type: BLOOD SPECIMENOrdering Facility: [facility] Address: [address] [place], [place] [address] Performed By: #### 5 8410-2 ####CHRISTIAN LABORATORYCLIA [id number] [place] [id number] [facility] RBC (Bld) [#/Vol] 4.39 10*6/uL Normal 4.20-6.00 [facility] Comment on above: Order Comment: Speci men Type: BLOOD SPECIMENOrdering Facility: [facility] Address: [address] [place] [address] Performed By: #### 5 8410-2 ####CHRISTIAN LABORATORYCLIA [id number] [place] [id number] [facility] WBC (Bld) [#/Vol] 13.36 10*3/uL High 3.70-11.00 [facility] Comment on above: Order Comment: Speci men Type: BLOOD SPECIMENOrdering Facility: [facility] Address: [address] [place] [address] Performed By: #### 5 8410-2 ####CHRISTIAN LABORATORYCLIA [id number] [place] [id number] [facility] THERAPY NTon 03-21-2022 THERAPY NT HNO ID: [id number] Author: Berna George PT Service: Physical Therapy Author Type: Physical Therapist Type: Therapy (PT/OT/Speech/Resp) Filed: 03/21/2022 11:59 AM Note Text: Physical Therapy Evaluation SERVICE DATE: 03/21/2022 SERVICE TIME: 1032 to 1125 ROOM: [id number] Recommended Discharge Disposition: Home Anticipated Discharge Needs: [...] Diagnosis: Reduced mobility-other Interventions Provided: Evaluation;Therapeutic Exercise (75860);Therapeutic Activity (48680);Gait Training (14646) $ Evaluation-Low (84629) Billed Units: 1 unit Therapeutic Exercise (25178) Treatment Minutes: 10 $ Therapeutic Exercise (75747) Billed Units: 1 unit Therapeutic Activity (19849) Treatment Minutes: 15 $ Therapeutic Activity (23946) Billed Units: 1 unit Gait Training (25413) Treatment Minutes: 13 $ Gait Training (25069) Billed Units: 1 unit Training AND education provided in: Anatomy and impact on deficits, Assistive device use, Bed mobility, Benefits of in-hospital mobility, Discharge planning, Exercise program, Expected functional level, Gait pattern, reduction of deviations, Handout issued, Modalities, Role of Physical Therapy The following therapeutic skills were used: Acti (more content not included)... [facility] THERAPY NT HNO ID: [id number] Author: Karis Polanco OT/L Service: Occupational Therapy Author Type: Occupational Therapist Type: Therapy (PT/OT/Speech/Resp) Filed: 03/21/2022 10:33 AM Note Text: Occupational Therapy Evaluation SERVICE DATE: 03/21/2022 SERVICE TIME: 0948 to 1016 ROOM: [id number] Recommended Discharge Disposition: Home Recommended Discharge Disposition [...] of gait and mobility-other Interventions Provided: Evaluation;Self Skilled Nursing Management (58285) $ Evaluation-Low (74556) Billed Units: 1 unit Self Skilled Nursing Management (72926) Treatment Minutes: 13 $ Self Skilled Nursing Management (79858) Billed Units: 1 unit Training AND education provided in: Activity adaption / compensatory strategies, Adaptive equipment / DME, Assistive device use, Bed mobility, Benefits of in-hospital mobility, Coping skills, Discharge planning, Expected functional level, Functional mobility involving ADLs, IADLs / Home management, Lower extremity bathing, Lower extremity dressi (more content not included)... [facility] ANES POSTPROC EVALon 022 ANES POSTPROC EVAL HNO ID: [id number] Author: Merary Francis MD Service: Anesthesiology Author Type: Anesthesiologist Type: Anesthesia Postprocedure Evaluation Filed: 03/20/2022 4:07 PM Note Text: POST ANESTHESIA EVALUATION NOTE : 1950 Procedure Summary Date: 03/20/22 Room / Location: OR / [facility] OR Anesthesia Start: 728 Anesthesia [...] SpO2 88 03/20/22 1121 Resp 16 03/20/22 1217 SpO2 95 % 03/20/22 1217 Post Anesthesia Patient Status Patient Evaluation: bedside. [...] March 20, 2022 TIME: 4:06 PM CSN: [id number] [facility] ANES PRE-OPon 03-20-2022 ANES PRE-OP HNO ID: [id number] Author: Merary Francis MD Service: Anesthesiology Author Type: Anesthesiologist Type: Anesthesia Preprocedure Evaluation Filed: 03/20/2022 7:27 AM Note Text: ANESTHESIOLOGY DAY OF SURGERY NOTE : 1950 Procedure Information Date/Time: 03/20/22729 Procedures: LAMINECTOMY DECOMPRESSION FACETECTOMY AND FORAMINOTOMY (N/A Spine Lumbar) DECOMPRESSION LAMINECTOMY 1ST ADD'L LUMBAR SEGMENT (N/A Spine Lumbar) - L3-5 laminectomy Location: [facility] OR09 / [facility] OR Surgeons: Brock Portillo MD Estimated body mass index is 31.8 kg/m? as calculated from the following: Height as of 02/23/22: 180.3 cm (5' 11 ). Weight as [...] and consent discussed: yes. Patient / Responsible Democrat agrees to proceed: yes Patient / Surrogate agrees to blood products: Yes Significant changes in the patient condition since the History and Physical, not otherwise documented in primary service progress note: no. Potential Anesthesia issues that may suggest increased risk of complications or contraindication to planned procedure: none. Vitals Value Taken Time BP 142/94 03/20/22651 Pulse 76 03/20/22651 Resp 18 03/20/22651 Temp 37 ?C (98.6 ?F) 03/20/22651 SpO2 92 % 03/20/22651 Facility-Administered Medications as of 03/20/2022 Medication Dose [...] SIGNATURE: Merary Francis MD PATIENT NAME: Miroslava [place] DATE: March 20, 2022 TIME: 7:26 AM CSN: [id number] [facility] BRIEF OP NOTon 03-20-2022 BRIEF OP NOT HNO ID: [id number] Author: Brock Portillo MD Service: Neurosurgery Author Type: Physician Type: Brief Op Note Filed: 03/20/2022 11:06 AM Note Text: BRIEF OPERATIVE / PROCEDURE NOTE LOG ID: [id number] SURGERY/PROCEDURE DATE: 03/20/2022 INCISION/PROCEDURE START TIME: 7:59 AM INCISION CLOSE/PROCEDURE END TIME: 11:01 AM SURGEON(S)/PROCEDURALIST(S) AND MARINE PHOTOGRAPHER(S): Surgeon(s) and Role: * Brock Portillo MD - Primary Physician Rn Circulating: Tiffany Garsia PA-C SURGERY/PROCEDURE(S): L3-5 laminectomy ANESTHESIA: General FINDINGS: small left lateral duromtomy repaired primarily ESTIMATED BLOOD LOSS: 440 mls SPECIMENS: None COMPLICATIONS: None DRAINS: Subfascial drain PRE-OP/PRE-PROCEDURE DIAGNOSIS: lumbar stenosis with neurogenic claudication POST-OP/POST-PROCEDURE DIAGNOSIS: lumbar stenosis with neurogenic claudication SIGNATURE: Brock Portillo MD PATIENT NAME: Miroslava [place] DATE: March 20, 2022 TIME: 10:48 AM [facility] CASE MGT INIT ASSESon 2021 CASE MGT INIT LIANA HNO ID: [id number] Author: Eleni Tinajero RN Service: ? Author Type: Registered Nurse Type: Care Mgt Initial Assessment Filed: 03/20/2022 4:03 PM Note Text: CARE MANAGEMENT PROGRESS NOTE SERVICE DATE: 03/20/2022 SERVICE TIME: 3:57 pm LOS: 0 days [place] of Choice Given: No Reason Not Given: [...] 20, 2022 TIME: 3:48 PM PAGER/CONTACT #: [phone] [facility] CONSULTon 03-20-2022 CONSULT HNO ID: [id number] Author: Asad Tovar MD Service: General Internal [...] arthritis - HTN (hypertension) - Leukocytosis 1986 [place] admission - thought leukemia and he refused [...] Quit drugs in . ALLERGIES Allergen Reactions - Cardizem [Diltiazem* Other: [...] Gammopathy of Unk (more content not included)... [facility] NURSING PROGon 03-20-2022 NURSING PROG HNO ID: [id number] Author: Zan Rodriguez RN Service: Nursing Author Type: Registered Nurse Type: Nursing Progress Note Filed: 03/20/2022 12:33 PM Note Text: Nursing Progress Note Patient Name: Miroslava Peralta [facility]/[id number] Daily Note: Received from PACU. Call wheeler within reach. Side rails x 2. Instructed on incentive spirometry. This note was completed by: Zan Rodriguez [facility] NURSING PROG HNO ID: [id number] Author: Aracelis Shirley RN Service: Nursing Author Type: Registered Nurse Type: Nursing Progress Note Filed: 03/20/2022 11:14 AM Note Text: Patient was catheterized by AMANDO Mccullough in OR suite post procedure for 700ml Clear, kathleen urine. [facility] OPERATIVE NOon 03-20-2022 OPERATIVE NO HNO ID: [id number] Author: Brock Portillo MD Service: Neurosurgery Author Type: Physician Type: Operative Report Filed: 03/20/2022 11:06 AM Note Text: OPERATIVE/PROCEDURE REPORT LOG ID: [id number] SURGERY/PROCEDURE DATE: 03/20/2022 INCISION/PROCEDURE START TIME: 7:59 AM INCISION CLOSE/PROCEDURE END TIME: 11:01 AM SURGEON(S)/PROCEDURALIST(S) AND MARINE PHOTOGRAPHER(S): Surgeon(s) and Role: * Brock Portillo MD - Primary Physician Rn Circulating: AMANDO Mcdonough-Coleen SURGERY/PROCEDURE(S): L3-5 laminectomy ANESTHESIA: General INDICATION: 71 [...] DATE: March 20, 2022 TIME: 10:53 AM [facility] XR LUMBAR SPECIFY 1Von 03-20 XR LUMBAR SPECIFY 1V * * *Final Report* * * DATE OF EXAM: Mar 20 2022 10:41AM [facility]34 - XR LUMBAR SPECIFY 1V / PROCEDURE [...] are 5 lumbar-type vertebrae. Anatomic variant: None. Bicycle Rental Clerk: PSCB Transcribe Date/Time: Mar 20 2022 10:51A Dictated by : Rambo HOLLAND MD This examination was interpreted and the report reviewed and electronically signed by: Rambo HOLLAND MD on Mar 20 2022 10:51AM EST [id number] [facility] XR LUMBAR SPECIFY 1V * * *Final Report* * * DATE OF EXAM: Mar 20 2022 8:18AM [facility] [place] 5234 - XR LUMBAR SPECIFY 1V / [...] and Microsoft Teams during the surgical procedure. [facility] R[facility] Trans[facility] Date/Time: Mar 20 2022 8:27A Dictated by : Rambo HOLLAND MD This examination was interpreted and the report reviewed and electronically signed by: Rambo HOLLAND MD on Mar 20 2022 8:29AM EST [id number] [facility] XR LUMBAR SPECIFY 1V * * [...] are 5 lumbar-type vertebrae. Anatomic variant: None. Bicycle Rental Clerk: [facility] Transcribe Date/Time: Mar 20 2022 8:14A Dictated by : Rambo HOLLAND MD This examination was interpreted and the report reviewed and electronically signed by: Rambo HOLLAND MD on Mar 20 2022 8:14AM EST [id number] [facility] XR VERIFY LEVEL [id number] 03-20-2022 XR VERIFY LEVEL L-SPINE-NB * * [...] and Microsoft Teams during the surgical procedure. Bicycle Rental Clerk: AMANDA Transcribe Date/Time: Mar 20 2022 8:27A Dictated by : Rambo HOLLAND MD This examination was interpreted and the report reviewed and electronically signed by: Rambo HOLLAND MD on Mar 20 2022 8:29AM EST [id number] [facility] CBC W Auto Differential pane l (Bld)on 02-23-2022 Abs Immature Gran <0.03 <0.10 k/uL [facility] Basophils (Bld) [#/Vol] 0.07 10*3/uL <0.11 k/uL [facility] Basophils/100 WBC (Bld) 1.4 % [facility] Differential cell count method Nom (Bld) Auto [facility] Eosinophils (Bld) [#/Vol] 0.17 10*3/uL <0.46 k/uL [facility] Eosinophils/100 WBC (Bld) 3.4 % [facility] Erythrocyte distribution width (RBC) [Ratio] 12.5 % 11.5 - 15.0 % [facility] Hematocrit (Bld) [Volume fraction] 44.3 % 39.0 - 51.0 % [facility] Hemoglobin (Bld) [Mass/Vol] 15.5 g/dL 13.0 - 17.0 g/dL [facility] Immature Gran % 0.4 % [facility] Lymphocytes (Bld) [#/Vol] 0.99 10*3/uL Low 1.00 - 4.00 k/uL [facility] Lymphocytes/100 WBC (Bld) 20.1 % [facility] MCH (RBC) [Entitic mass] 32.9 pg 26.0 - 34.0 pg [facility] MCHC (RBC) [Mass/Vol] 35.0 g/dL 30.5 - 36.0 g/dL [facility] MCV (RBC) [Entitic vol] 94.1 fL 80.0 - 100.0 fL [facility] Monocytes (Bld) [#/Vol] 0.69 10*3/uL <0.87 k/uL [facility] Monocytes/100 WBC (Bld) 14.0 % [facility] Neutrophils (Bld) [#/Vol] 2.99 10*3/uL 1.45 - 7.50 k/uL [facility] Neutrophils/100 WBC (Bld) 60.7 % [facility] Nucleated RBC (Bld) [#/Vol] 10*3/uL <0.01 k/uL [facility] Nucleated RBC/100 WBC (Bld) [Ratio] 0.0 /100 WBC [facility] Platelet mean volume (Bld) [Entitic vol] 9.4 fL 9.0 - 12.7 fL [facility] Platelets (Bld) [#/Vol] 208 10*3/uL 150 - 400 k/uL [facility] RBC (Bld) [#/Vol] 4.71 10*6/uL 4.20 - 6.0 0 m/uL [facility] WBC (Bld) [#/Vol] 4.93 10*3/uL 3.70 - 11. 00 k/uL [facility] Comprehensive metabolic 2000 panelon 02-23-2022 Albumin [Mass/Vol] 4.4 g/dL 3.9 - 4.9 g/dL [facility] ALP [Catalytic activity/Vol] 65 U/L 38 - 113 U/L [facility] ALT [Catalytic activity/Vol] 14 U/L 10 - 54 U/L [facility] Anion gap [Moles/Vol] 8 mmol/L Low 9 - 18 mmol/L [facility] AST [Catalytic activity/Vol] 22 U/L 14 - 40 U/L [facility] Bilirubin [Mass/Vol] 0.4 mg/dL 0.2 - 1.3 mg/dL [facility] Calcium [Mass/Vol] 9.4 mg/dL 8.5 - 10. 2 mg/dL [facility] Chloride [Moles/Vol] 100 mmol/L 97 - 105 mmol/L [facility] CO2 [Moles/Vol] 26 mmol/L 22 - 30 mmol/L [facility] Creatinine [Mass/Vol] 1.11 mg/dL 0.73 - 1.22 mg/dL [facility] Estimated Glomerular Filtration Rate 71 mL/min/1.73m >=60 mL/min/1.73m [facility] Glucose [Mass/Vol] 101 mg/dL High 74 - 99 mg/dL [facility] Potassium [Moles/Vol] 3.9 mmol/L 3.7 - 5.1 mmol/L [facility] Protein [Mass/Vol] 6.9 g/dL 6.3 - 8.0 g/dL [facility] Sodium [Moles/Vol] 134 mmol/L Low 136 - 144 mmol/L [facility] Urea nitrogen [Mass/Vol] 12 mg/dL 9 - 24 mg/dL [facility] CNPNon 01-20-2022 CNPN Telephone (NEADFV) MIROSLAVA PERALTA ([id number]) 1950 M [facility]* Date Time Provider Department 01/20/22 BROCK PORTILLO During your visit today, we recorded the following information about you: Vanessa Burger [facility] [place] 01/20/2022 11:15 AM Signed Patient calling states he is going to be having surgery in February but not recollect where his surgery will be? He is asking for a call back as he has other questions, he can be reached at [phone] Estelle Castaneda RN 01/20/2022 11:56 AM Signed Called patient with no answer. Left message on identified voicemail that surgery will be at [facility] and to call back if he [...] Encounter Status:Closed by ESTELLE CASTANEDA on 01/20/22 [facility] MYRANery 12-30-2021 CNPN Telephone (NSFRVW) MIROSLAVA PERALTA ([id number]) 1950 M [facility]* Date Time Provider Department 12/30/21 BROCK PORTILLO [...] Left message to return call. Vanessa Burger [facility] [place] 01/06/2022 9:13 AM Signed Patient called back regarding scheduling his surgery, he can be reached at [phone] Estelle Castaneda RN 01/07/2022 10:09 AM Signed Neuro SPINE CARE COORDINATION PRE-OP VISIT ? Spoke with patient on the phone for pre op education. Given both written and verbal instructions re : Skin prep, wound care, pain management and post op restrictions. ? Mailed to patient: [facility] Surgery Guide, skin prep supplies, Spine Surgery Pre/post op education packet. Yes. ? Reviewed with patient to report to the registration desk for surgery? Yes. ? Reviewed with the patient that a surgery hobbies and crafts sales representative will call the working day [...] lab work : To be completed at [facility]. ? Questions answered. Patient verbalizes understanding [...] Encounter Status:Closed by ESTELLE CASTANEDA on 01/07/22 [facility] HISTORY PHYSICALon HISTORY PHYSICAL HNO ID: [id number] Author: Sanjay Young MD Service: Pain Management [...] arthritis - HTN (hypertension) - Leukocytosis 1986 [place] admission - thought leukemia and he refused [...] patient presents with persistent pain complaints. Miroslava Peralta denies any interval changes or new pain complaints or focal neurologic deficits. 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 Normal [facility] OPERATIVE NOon 12-23-2021 OPERATIVE NO HNO ID: [id number] Author: Sanjay Young MD Service: Pain Management [...] DATE: December 23, 2021 TIME: 10:52 AM [facility] [place] [facility] [place] XR FLUOROSCOPY * * *Final Report* [...] time: 0:21 min:sec IMAGE NUMBER: [id number] RESULT: [place] directed at the bilateral lower lumbar spine for perineural epidural injections. IMPRESSION: 1. As above. 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 [facility]icycle Rental [facility] Transcribe Date/Time: Sep 30 2021 4:05P Dictated [...] side. DIVISION OF RADIOLOGY Provider, Dawit Renee [facility] - 09/30/2021 * * *Final Report* * [...] of the bilateral and hands and wrists. Bicycle Rental Clerk: AMANDA Transcribe Date/Time: Sep 30 2021 4:05P Dictated by : JAYJAY JOHNS MD This examination was interpreted and the report reviewed and electronically signed by: JAYJAY JOHNS MD on Sep 30 2021 4:06PM EST [facility] Radiology Study observation (narrative) [facility] XR Hand - bilateral PA and L ateral and ObliqueOrdered By: Ccf Provider on 09-30-2021 [facility] No Panel Informationon 07-04 Radiology Study observation (narrative) [facility] XR HIP BILAT 5V PEL/AP/LAT E ACH HIPon 07-04-2021 IMPRESSION: Postsurgical change. No complication. Osteoarthrosis of the left hip. Bicycle Rental Clerk: AMANDA Transcribe Date/Time: Jul 04 2021 3:00P Dictated by : GOPAL BLAKELY MD This examination was interpreted and the report reviewed and electronically signed by: GOPAL BLAKELY MD on Jul 04 2021 3:05PM [facility] DIVISION OF RADIOLOGY * * *Final Report* [...] of superior left hip joint space. Probable [id number]-[id number] the left femoral head and acetabulum. Osteophyte formation involving the left femoral head and acetabulum. No fracture or dislocation. Pubic symphysis and SI joints are intact. DIVISION OF RADIOLOGY [facility] * * *Final Report* * [...] of superior left hip joint space. Probable gzbh-rx-cqwb the left femoral head and acetabulum. Osteophyte formation involving the left femoral head and acetabulum. No fracture or dislocation. Pubic symphysis and SI joints are intact. IMPRESSION IMPRESSION: Postsurgical change. No complication. Osteoarthrosis of the left hip. 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 Postsurgical change of the right hip. No complication. Bicycle Rental Clerk: AMANDA Transcribe Date/Time: Jul 04 2021 3:05P Dictated [...] tissue abnormality identified. DIVISION OF RADIOLOGY Provider, Renu Thelma [facility] - 07/04/2021 * * *Final Report* * [...] change of the right hip. No complication. Bicycle Rental Clerk: [facility] Transcribe Date/Time: Jul 04 2021 3:05P Dictated by : GOPAL BLAKELY MD This examination was interpreted and the report reviewed and electronically signed by: GOPAL BLAKELY MD on Jul 04 2021 3:07PM [facility] XR Lumbar spine 3 Viewson IMPRESSION: DEGENERATIVE CHANGE AND ALIGNMENT ABNORMALITIES DESCRIBED. PROGRESSION FROM THE PRIOR STUDY Bicycle Rental Clerk: [facility] Transcribe Date/Time: Dec 13 2020 4:08P Dictated by : ENZO FOWLER MD This examination was interpreted and the report reviewed and electronically signed by: ENZO FOWLER MD on Dec 13 2020 4:23PM [facility] DIVISION OF RADIOLOGY * * *Final Report* [...] ABNORMALITIES DESCRIBED. PROGRESSION FROM THE PRIOR STUDY Bicycle Rental Clerk: [facility] Transcribe Date/Time: Dec 13 2020 4:08P Dictated by : ENZO FOWLER MD This examination was interpreted and the report reviewed and electronically signed by: ENZO FOWLER MD on Dec 13 2020 4:23PM EST [facility] Radiology Study observation (narrative) [facility] XR Lumbar spine 3 ViewsOrder ed By: Ccf Provider on 12-13-2020 [facility] US ELASTOGRAPHY LIVER W/ABD LTDon 02-14-2019 [...] [facility], [facility] 2015 276:3, [phone] Interpreted By: Jesi Kumar MD Preliminary Report By: Jesi Kumar MD Electronically Signed By: Jesi Kumar MD Dictated Date: 02/14/2019 1:23:07 PM Prelim Date: 02/14/2019 1:23:07 PM Sign Date: 02/14/2019 1:24:41 PM Normal [facility] ([place]) Vital Signs Date Time Vital Sign Value Performing Clinician [facility] 09-11-2024 15:01-0400 Body height 180.3 cm Vicente Quintana MD Work Phone: [facility] 09-11-2024 15:01-0400 Heart rate 92 /min Vicente Quintana MD Work Phone: [facility] 09-11-2024 15:01-0400 SaO2% (BldA) [Mass fraction] 97 % Vicente Quintana MD Work Phone: [facility] 09-06-2024 11:58-0400 Body temperature 97.39 [degF] Andressa Most RN Work Phone: [facility] 09-06-2024 11:58-0400 Diastolic blood pressure 72 mm[Hg] Andressa Most RN Work Phone: [facility] 09-06-2024 11:58-0400 Heart rate 92 /min Andressa Most RN Work Phone: [facility] 09-06-2024 11:58-0400 Respiratory rate 16 /min Andressa Most RN Work Phone: [facility] 09-06-2024 11:58-0400 SaO2% (BldA) [Mass fraction] 98 % Andressa Most RN Work Phone: [facility] 09-06-2024 11:58-0400 Systolic blood pressure 108 mm[Hg] Andressa Most RN Work Phone: [facility] 08-30-2024 14:57-0400 Body temperature 97.3 [degF] Andressa Most RN Work Phone: [facility] 08-30-2024 14:57-0400 Diastolic blood pressure 76 mm[Hg] Andressa Most RN Work Phone: [facility] 08-30-2024 14:57-0400 Heart rate 76 /min Andressa Most RN Work Phone: [facility] 08-30-2024 14:57-0400 Respiratory rate 16 /min Andressa Most RN Work Phone: [facility] 08-30-2024 14:57-0400 SaO2% (BldA) [Mass fraction] 97 % Andressa Shah RN Work Phone: [facility] 08-30-2024 14:57-0400 Systolic blood pressure 118 mm[Hg] Andressa Shah RN Work Phone: [facility] 08-25-2024 12:42-0400 Body temperature 97.3 [degF] Mary Gerstenslager O T Work Phone: [facility] 08-25-2024 12:42-0400 Diastolic blood pressure 86 mm[Hg] Mary Gerstenslager OT Work Phone: [facility] 08-25-2024 12:42-0400 Heart rate 74 /min Mary Gerstenslager O T Work Phone: [facility] 08-25-2024 12:42-0400 SaO2% (BldA) [Mass fraction] 99 % Mary Gerstenslager OT Work Phone: [facility] 08-25-2024 12:42-0400 Systolic blood pressure 128 mm[Hg] Mary Gerstenslager OT Work Phone: [facility] 08-24-2024 14:30-0400 Diastolic blood pressure 72 mm[Hg] Jesus Knupp PT Work Phone: [facility] 08-24-2024 14:30-0400 Heart rate 74 /min Jesus Knupp PT Work Phone: [facility] 08-24-2024 14:30-0400 Respiratory rate 18 /min Jesus Knupp PT Work Phone: [facility] 08-24-2024 14:30-0400 SaO2% (BldA) [Mass fraction] 96 % Jesus Knupp PT Work Phone: [facility] 08-24-2024 14:30-0400 Systolic blood pressure 126 mm[Hg] Jesus Knupp PT Work Phone: [facility] 08-24-2024 14:03-0400 Body temperature 97.2 [degF] Jesus Trammell PT Work Phone: [facility] 08-23-2024 15:19-0400 Body temperature 97.81 [degF] Andressa Shah RN Work Phone: [facility] 08-23-2024 15:19-0400 Diastolic blood pressure 76 mm[Hg] Andressamiles Shah RN Work Phone: [facility] 08-23-2024 15:19-0400 Heart rate 84 /min Andressamiles Shah RN Work Phone: [facility] 08-23-2024 15:19-0400 Respiratory rate 16 /min Andressamiles Shah RN Work Phone: [facility] 08-23-2024 15:19-0400 SaO2% (BldA) [Mass fraction] 97 % Andressamiles Shah RN Work Phone: [facility] 08-23-2024 15:19-0400 Systolic blood pressure 110 mm[Hg] Andressamiles Shah RN Work Phone: [facility] 08-22-2024 14:05-0400 Body mass index (BMI) [Ratio] 27.75 kg/m2 Dany Gomez PA-C Work Phone: [facility] 08-22-2024 14:05-0400 Body temperature 97.5 [degF] Dany Gomez PA-C Work Phone: [facility] 08-22-2024 14:05-0400 Body weight 90.27 kg Dany Gomez PA-C Work Phone: [facility] 08-22-2024 14:05-0400 Diastolic blood pressure 68 mm[Hg] Dany Gomez PA-C Work Phone: [facility] 08-22-2024 14:05-0400 Heart rate 80 /min Dany Gomez PA-C Work Phone: [facility] 08-22-2024 14:05-0400 Respiratory rate 18 /min Dany Gomez PA-C Work Phone: [facility] 08-22-2024 14:05-0400 SaO2% (BldA) [Mass fraction] 95 % Dany Gomez PA-C Work Phone: [facility] 08-22-2024 14:05-0400 Systolic blood pressure 108 mm[Hg] Dany Gomez PA-C Work Phone: [facility] 08-16-2024 16:45-0400 Body temperature 98.91 [degF] Andressamiles Shah RN Work Phone: [facility] 08-16-2024 16:45-0400 Diastolic blood pressure 64 mm[Hg] Andressa Shah RN Work Phone: [facility] 08-16-2024 16:45-0400 Heart rate 76 /min Andressamiles Shah RN Work Phone: [facility] 08-16-2024 16:45-0400 Respiratory rate 16 /min Andressa Most RN Work Phone: [facility] 08-16-2024 16:45-0400 SaO2% (BldA) [Mass fraction] 98 % Andressa RN Work Phone: [facility] 08-16-2024 16:45-0400 Systolic blood pressure 110 mm[Hg] Andressamiles Shah RN Work Phone: [facility] 08-16-2024 12:18-0400 Heart rate 83 /min Loretamelinda Cliftonnes OBREGON/L Work Phone: [facility] Comment on above: post tasks 08-16-2024 12:18-0400 SaO2% (BldA) [Mass fraction] 97 % Loreta Cliftonnes OBREGON/L Work Phone: [facility] Comment on above: post tasks 08-16-2024 11:53-0400 Body temperature 98.29 [degF] Loretamelinda Cliftonnes OBREGON/L Work Phone: [facility] 08-16-2024 11:53-0400 Diastolic blood pressure 70 mm[Hg] Loreta Moreno OBREGON/L Work Phone: [facility] 08-16-2024 11:53-0400 Respiratory rate 18 /min Loreta Moreno OBREGON/L Work Phone: [facility] 08-16-2024 11:53-0400 Systolic blood pressure 116 mm[Hg] Loreta Moreno OBREGON/L Work Phone: [facility] 08-15-2024 14:49-0400 Body temperature 98.4 [degF] Noa Lima PT Work Phone: [facility] 08-15-2024 14:49-0400 Diastolic blood pressure 76 mm[Hg] Noa Bryant-Alberto PT Work Phone: [facility] 08-15-2024 14:49-0400 Heart rate 99 /min Noa Lima PT Work Phone: [facility] 08-15-2024 14:49-0400 Respiratory rate 16 /min Noa Lima PT Work Phone: [facility] 08-15-2024 14:49-0400 SaO2% (BldA) [Mass fraction] 98 % Noa Lima PT Work Phone: [facility] 08-15-2024 14:49-0400 Systolic blood pressure 112 mm[Hg] Noa Lima PT Work Phone: [facility] 08-11-2024 13:40-0400 Body temperature 97.9 [degF] Andressa Shah RN Work Phone: [facility] 08-11-2024 13:40-0400 Diastolic blood pressure 72 mm[Hg] Andressa Shah RN Work Phone: [facility] 08-11-2024 13:40-0400 Heart rate 80 /min Andressa Shah RN Work Phone: [facility] 08-11-2024 13:40-0400 SaO2% (BldA) [Mass fraction] 98 % Andressa Shah RN Work Phone: [facility] 08-11-2024 13:40-0400 Systolic blood pressure 116 mm[Hg] Andressa Shah RN Work Phone: [facility] 08-09-2024 12:10-0400 Body temperature 97.81 [degF] Molly Puja DIESEL PILE HAMMER OPERATOR Work Phone: [facility] 08-09-2024 12:10-0400 Diastolic blood pressure 80 mm[Hg] Molly Puja DIESEL PILE HAMMER OPERATOR Work Phone: [facility] 08-09-2024 12:10-0400 Heart rate 80 /min Andressa Shah RN Work Phone: [facility] 08-09-2024 12:10-0400 Respiratory rate 20 /min Molly Puja DIESEL PILE HAMMER OPERATOR Work Phone: [facility] 08-09-2024 12:10-0400 SaO2% (BldA) [Mass fraction] 96 % Molly Puja DIESEL PILE HAMMER OPERATOR Work Phone: [facility] 08-09-2024 12:10-0400 Systolic blood pressure 122 mm[Hg] Andressa Shah RN Work Phone: [facility] 08-09-2024 12:00-0400 Heart rate 84 /min Molly Puja DIESEL PILE HAMMER OPERATOR Work Phone: [facility] 08-09-2024 12:00-0400 Systolic blood pressure 116 mm[Hg] Molly Puja DIESEL PILE HAMMER OPERATOR Work Phone: [facility] 08-08-2024 11:40-0400 Heart rate 86 /min Loreta Moreno OBREGON/L Work Phone: [facility] Comment on above: post tasks 08-08-2024 11:40-0400 SaO2% (BldA) [Mass fraction] 97 % Loreta Moreno OBREGON/L Work Phone: [facility] Comment on above: post tasks 08-08-2024 11:13-0400 Body temperature 98.01 [degF] Loreta Moreno OBREGON/L Work Phone: [facility] 08-08-2024 11:13-0400 Diastolic blood pressure 76 mm[Hg] Loreta Moreno OBREGON/L Work Phone: [facility] 08-08-2024 11:13-0400 Respiratory rate 18 /min Loreta Moreno OBREGON/L Work Phone: [facility] 08-08-2024 11:13-0400 Systolic blood pressure 118 mm[Hg] Loreta Moreno OBREGON/L Work Phone: [facility] 08-07-2024 12:02-0400 Body temperature 97.59 [degF] Molly Puja DIESEL PILE HAMMER OPERATOR Work Phone: [facility] 08-07-2024 12:02-0400 Diastolic blood pressure 78 mm[Hg] Molly Puja DIESEL PILE HAMMER OPERATOR Work Phone: [facility] 08-07-2024 12:02-0400 Heart rate 67 /min Molly Puja DIESEL PILE HAMMER OPERATOR Work Phone: [facility] 08-07-2024 12:02-0400 Respiratory rate 18 /min Molly Puja DIESEL PILE HAMMER OPERATOR Work Phone: [facility] 08-07-2024 12:02-0400 SaO2% (BldA) [Mass fraction] 97 % Molly Puja DIESEL PILE HAMMER OPERATOR Work Phone: [facility] 08-07-2024 12:02-0400 Systolic blood pressure 118 mm[Hg] Molly Puja DIESEL PILE HAMMER OPERATOR Work Phone: [facility] 08-04-2024 15:46-0400 Body temperature 98.49 [degF] Edenilson Min RN Work Phone: [facility] 08-04-2024 15:46-0400 Diastolic blood pressure 64 mm[Hg] Edenilson Min RN Work Phone: [facility] 08-04-2024 15:46-0400 Heart rate 83 /min Edenilson Min RN Work Phone: [facility] 08-04-2024 15:46-0400 Respiratory rate 18 /min Edenilson Min RN Work Phone: [facility] 08-04-2024 15:46-0400 SaO2% (BldA) [Mass fraction] 96 % Edenilson Min RN Work Phone: [facility] 08-04-2024 15:46-0400 Systolic blood pressure 100 mm[Hg] Edenilson Min RN Work Phone: [facility] 08-04-2024 11:29-0400 Diastolic blood pressure 66 mm[Hg] Molly Puja DIESEL PILE HAMMER OPERATOR Work Phone: [facility] 08-04-2024 11:29-0400 Systolic blood pressure 118 mm[Hg] Molly Puja DIESEL PILE HAMMER OPERATOR Work Phone: [facility] 08-04-2024 11:12-0400 Body temperature 98.4 [degF] Molly Puja DIESEL PILE HAMMER OPERATOR Work Phone: [facility] 08-04-2024 11:12-0400 Heart rate 100 /min Molly Puja DIESEL PILE HAMMER OPERATOR Work Phone: [facility] 08-04-2024 11:12-0400 Respiratory rate 18 /min Molly Puja DIESEL PILE HAMMER OPERATOR Work Phone: [facility] 08-04-2024 11:12-0400 SaO2% (BldA) [Mass fraction] 96 % Molly Puja DIESEL PILE HAMMER OPERATOR Work Phone: [facility] 08-01-2024 13:47-0400 Diastolic blood pressure 60 mm[Hg] Molly Puja DIESEL PILE HAMMER OPERATOR Work Phone: [facility] 08-01-2024 13:47-0400 Heart rate 94 /min Molly Puja DIESEL PILE HAMMER OPERATOR Work Phone: [facility] 08-01-2024 13:47-0400 SaO2% (BldA) [Mass fraction] 95 % Molly Puja DIESEL PILE HAMMER OPERATOR Work Phone: [facility] 08-01-2024 13:47-0400 Systolic blood pressure 112 mm[Hg] Molly Puja DIESEL PILE HAMMER OPERATOR Work Phone: [facility] 08-01-2024 13:10-0400 Body temperature 97.81 [degF] Molly Puja DIESEL PILE HAMMER OPERATOR Work Phone: [facility] 08-01-2024 13:10-0400 Respiratory rate 18 /min Molly Puja DIESEL PILE HAMMER OPERATOR Work Phone: [facility] 07-31-2024 11:10-0400 Body temperature 97.11 [degF] Mary Gerstenslager O T Work Phone: [facility] 07-31-2024 11:10-0400 Diastolic blood pressure 82 mm[Hg] Mary Gerstenslager OT Work Phone: [facility] 07-31-2024 11:10-0400 Heart rate 66 /min Mary Gerstenslager O T Work Phone: [facility] 07-31-2024 11:10-0400 SaO2% (BldA) [Mass fraction] 94 % Mary Gerstenslager OT Work Phone: [facility] 07-31-2024 11:10-0400 Systolic blood pressure 118 mm[Hg] Mary Gerstenslager OT Work Phone: [facility] 07-29-2024 13:44-0400 Diastolic blood pressure 55 mm[Hg] America Nascimento PT Work Phone: [facility] Comment on above: dizzy 07-29-2024 13:44-0400 Systolic blood pressure 85 mm[Hg] America Nascimento PT Work Phone: [facility] Comment on above: dizzy 07-29-2024 13:20-0400 Body temperature 97.9 [degF] America Nascimento PT Work Phone: [facility] 07-29-2024 13:20-0400 Heart rate 99 /min America Nascimento PT Work Phone: [facility] 07-29-2024 13:20-0400 Respiratory rate 16 /min America Azam PT Work Phone: [facility] 07-29-2024 13:20-0400 SaO2% (BldA) [Mass fraction] 94 % America Azam PT Work Phone: [facility] 07-28-2024 13:46-0400 Body temperature 98.49 [degF] Edenilson Min RN Work Phone: [facility] 07-28-2024 13:46-0400 Diastolic blood pressure 62 mm[Hg] Edenilson Min RN Work Phone: [facility] 07-28-2024 13:46-0400 Heart rate 94 /min Edenilson Min RN Work Phone: [facility] 07-28-2024 13:46-0400 Respiratory rate 18 /min Edenilson Min RN Work Phone: [facility] 07-28-2024 13:46-0400 SaO2% (BldA) [Mass fraction] 97 % Edenilson Min RN Work Phone: [facility] 07-28-2024 13:46-0400 Systolic blood pressure 100 mm[Hg] Edenilson Min RN Work Phone: [facility] 07-10-2024 14:44-0400 Diastolic blood pressure 78 mm[Hg] Abena Lermaagen KITCHEN LEAD.TRANSPORTATION DISPATCH MANAGER Work Phone: [facility] 07-10-2024 14:44-0400 Heart rate 88 /min Abena Haagen KITCHEN LEAD.TRANSPORTATION DISPATCH MANAGER Work Phone: [facility] 07-10-2024 14:44-0400 Respiratory rate 16 /min Abena Haagen KITCHEN LEAD.TRANSPORTATION DISPATCH MANAGER Work Phone: [facility] 07-10-2024 14:44-0400 SaO2% (BldA) [Mass fraction] 98 % Abena Haagen KITCHEN LEAD.TRANSPORTATION DISPATCH MANAGER Work Phone: [facility] 07-10-2024 14:44-0400 Systolic blood pressure 124 mm[Hg] Abena Beckford TRANSPORTATION DISPATCH MANAGER Work Phone: [facility] 07-10-2024 10:41-0400 Body height 180.3 cm Vicente Quintana MD Work Phone: [facility] 07-10-2024 10:41-0400 Diastolic blood pressure 77 mm[Hg] Vicente Quintana MD Work Phone: [facility] 07-10-2024 10:41-0400 Heart rate 85 /min Vicente Quintana MD Work Phone: [facility] 07-10-2024 10:41-0400 SaO2% (BldA) [Mass fraction] 96 % Vicente Quintana MD Work Phone: [facility] 07-10-2024 10:41-0400 Systolic blood pressure 113 mm[Hg] Vicente Quintana MD Work Phone: [facility] 04-10-2024 14:16-0400 Body mass index (BMI) [Ratio] 29.15 kg/m2 NA Zaidi PA-C Work Phone: [facility] 04-10-2024 14:16-0400 Body weight 94.8 kg NA Zaidi PA-C Work Phone: [facility] 04-10-2024 14:16-0400 Diastolic blood pressure 78 mm[Hg] NA Zaidi PA-C Work Phone: [facility] 04-10-2024 14:16-0400 Heart rate 88 /min NA Zaidi PA-C Work Phone: [facility] 04-10-2024 14:16-0400 Respiratory rate 16 /min NA Zaidi PA-C Work Phone: [facility] 04-10-2024 14:16-0400 SaO2% (BldA) [Mass fraction] 96 % NA Zaidi PA-C Work Phone: [facility] 04-10-2024 14:16-0400 Systolic blood pressure 111 mm[Hg] NA Zaidi PA-C Work Phone: [facility] 03-13-2024 14:13-0400 Body mass index (BMI) [Ratio] 29.99 kg/m2 Corrie Suppan KITCHEN LEAD.LORRY WEIGHER Work Phone: [facility] 03-13-2024 14:13-0400 Body temperature 97.5 [degF] Corrie Suppan KITCHEN LEAD.LORRY WEIGHER Work Phone: [facility] 03-13-2024 14:13-0400 Body weight 97.52 kg Corrie Suppan KITCHEN LEAD.LORRY WEIGHER Work Phone: [facility] 03-13-2024 14:13-0400 Diastolic blood pressure 62 mm[Hg] Corrie Suppan KITCHEN LEAD.LORRY WEIGHER Work Phone: [facility] 03-13-2024 14:13-0400 Heart rate 85 /min Corrie Suppan KITCHEN LEAD.LORRY WEIGHER Work Phone: [facility] 03-13-2024 14:13-0400 Respiratory rate 14 /min Corrie Suppan KITCHEN LEAD.LORRY WEIGHER Work Phone: [facility] 03-13-2024 14:13-0400 SaO2% (BldA) [Mass fraction] 97 % Corrie Suppan KITCHEN LEAD.LORRY WEIGHER Work Phone: [facility] 03-13-2024 14:13-0400 Systolic blood pressure 108 mm[Hg] Corrie Suppan KITCHEN LEAD.LORRY WEIGHER Work Phone: [facility] 02-09-2024 14:16-0400 Body height 180.3 cm Dennis Moore MD Work Phone: [facility] 02-09-2024 14:16-0400 Body weight 96.16 kg Dennis Moore MD Work Phone: [facility] 02-09-2024 14:16-0400 Diastolic blood pressure 60 mm[Hg] Dennis Moore MD Work Phone: [facility] 02-09-2024 14:16-0400 Heart rate 90 /min Dennis Moore MD Work Phone: [facility] 02-09-2024 14:16-0400 Respiratory rate 16 /min Dennis Moore MD Work Phone: [facility] 02-09-2024 14:16-0400 Systolic blood pressure 92 mm[Hg] Dennis Moore MD Work Phone: [facility] 02-03-2024 14:35-0400 Body weight 94.8 kg NA Zaidi PA-C Work Phone: [facility] 02-03-2024 14:35-0400 Diastolic blood pressure 70 mm[Hg] NA Zaidi PA-C Work Phone: [facility] 02-03-2024 14:35-0400 Heart rate 82 /min NA Zaidi PA-C Work Phone: [facility] 02-03-2024 14:35-0400 Respiratory rate 16 /min NA Zaidi PA-C Work Phone: [facility] 02-03-2024 14:35-0400 SaO2% (BldA) [Mass fraction] 98 % NA Zaidi PA-C Work Phone: [facility] 02-03-2024 14:35-0400 Systolic blood pressure 100 mm[Hg] NA Zaidi PA-C Work Phone: [facility] 01-31-2024 14:40-0400 Body height 180.3 cm Bharathi Wiggins APRN.CNP , DNP Work Phone: [facility] 01-31-2024 14:40-0400 Body temperature 97.3 [degF] Bharathi Wiggins APRN.CNP , DNP Work Phone: [facility] 01-31-2024 14:40-0400 Body weight 92.72 kg Bharathi Wiggins APRN.CNP , DNP Work Phone: [facility] 01-31-2024 14:40-0400 Diastolic blood pressure 70 mm[Hg] Bharathi Wiggins APRN.TRANSPORTATION DISPATCH MANAGER, DNP Work Phone: [facility] 01-31-2024 14:40-0400 Heart rate 94 /min Bharathi Wiggins APRN.TRANSPORTATION DISPATCH MANAGER , DNP Work Phone: [facility] 01-31-2024 14:40-0400 Respiratory rate 14 /min Bharathi Wiggins APRN.TRANSPORTATION DISPATCH MANAGER , DNP Work Phone: [facility] 01-31-2024 14:40-0400 SaO2% (BldA) [Mass fraction] 99 % Bharathi Wiggins APRN.TRANSPORTATION DISPATCH MANAGER, DNP Work Phone: [facility] 01-31-2024 14:40-0400 Systolic blood pressure 100 mm[Hg] Bharathi Wiggins APRN.TRANSPORTATION DISPATCH MANAGER, DNP Work Phone: [facility] 01-03-2024 14:49-0500 Body height 180.3 cm Bharathi Wiggins APRN.TRANSPORTATION DISPATCH MANAGER , DNP Work Phone: [facility] 01-03-2024 14:49-0500 Body temperature 97.3 [degF] Bharathi Wiggins APRN.TRANSPORTATION DISPATCH MANAGER , DNP Work Phone: [facility] 01-03-2024 14:49-0500 Body weight 97.07 kg Bharathi Wiggins APRN.TRANSPORTATION DISPATCH MANAGER , DNP Work Phone: [facility] 01-03-2024 14:49-0500 Diastolic blood pressure 80 mm[Hg] Bharathi Wiggins APRN.TRANSPORTATION DISPATCH MANAGER, DNP Work Phone: [facility] 01-03-2024 14:49-0500 Heart rate 82 /min Bharathi Wiggins APRN.TRANSPORTATION DISPATCH MANAGER , DNP Work Phone: [facility] 01-03-2024 14:49-0500 Respiratory rate 14 /min Bharathi Wiggins APRN.TRANSPORTATION DISPATCH MANAGER , DNP Work Phone: [facility] 01-03-2024 14:49-0500 SaO2% (BldA) [Mass fraction] 96 % Bharathi Wiggins APRN.TRANSPORTATION DISPATCH MANAGER, DNP Work Phone: [facility] 01-03-2024 14:49-0500 Systolic blood pressure 120 mm[Hg] Bharathi Wiggins APRN.TRANSPORTATION DISPATCH MANAGER, DNP Work Phone: [facility] 01-03-2024 13:45-0500 Body weight 97.98 kg NA Zaidi PA-C Work Phone: [facility] 01-03-2024 13:45-0500 Diastolic blood pressure 82 mm[Hg] NA Zaidi PA-C Work Phone: [facility] 01-03-2024 13:45-0500 Heart rate 81 /min NA Zaidi PA-C Work Phone: [facility] 01-03-2024 13:45-0500 Respiratory rate 16 /min NA Zaidi PA-C Work Phone: [facility] 01-03-2024 13:45-0500 SaO2% (BldA) [Mass fraction] 96 % NA Zaidi PA-C Work Phone: [facility] 01-03-2024 13:45-0500 Systolic blood pressure 134 mm[Hg] NA Zaidi PA-C Work Phone: [facility] 10-28-2023 15:11-0500 Body temperature 97.59 [degF] NA Zaidi PA-C Work Phone: [facility] 10-28-2023 15:11-0500 Body weight 98.88 kg NA Zaidi PA-C Work Phone: [facility] 10-28-2023 15:11-0500 Diastolic blood pressure 72 mm[Hg] NA Zaidi PA-C Work Phone: [facility] 10-28-2023 15:11-0500 Heart rate 86 /min NA Zaidi PA-C Work Phone: [facility] 10-28-2023 15:11-0500 Respiratory rate 16 /min NA Zaidi PA-C Work Phone: [facility] 10-28-2023 15:11-0500 SaO2% (BldA) [Mass fraction] 96 % NA Zaidi PA-C Work Phone: [facility] 10-28-2023 15:11-0500 Systolic blood pressure 128 mm[Hg] NA Zaidi PA-C Work Phone: [facility] 10-20-2023 14:44-0500 Body height 180.3 cm Gudelia Samuel MD Work Phone: [facility] 10-20-2023 14:44-0500 Body weight 95.25 kg Gudelia Samuel MD Work Phone: [facility] 10-20-2023 14:44-0500 Respiratory rate 15 /min Gudelia Samuel MD Work Phone: [facility] 09-28-2023 14:37-0500 Body temperature 97.59 [degF] Joshua Dariel KITCHEN LEAD.TRANSPORTATION DISPATCH MANAGER Work Phone: [facility] 09-28-2023 14:37-0500 Body weight 95.25 kg Joshua Dariel KITCHEN LEAD.TRANSPORTATION DISPATCH MANAGER Work Phone: [facility] 09-28-2023 14:37-0500 Diastolic blood pressure 64 mm[Hg] Joshua Dariel KITCHEN LEAD.TRANSPORTATION DISPATCH MANAGER Work Phone: [facility] 09-28-2023 14:37-0500 Heart rate 82 /min Joshua Dariel KITCHEN LEAD.TRANSPORTATION DISPATCH MANAGER Work Phone: [facility] 09-28-2023 14:37-0500 Respiratory rate 18 /min Joshua Dariel KITCHEN LEAD.TRANSPORTATION DISPATCH MANAGER Work Phone: [facility] 09-28-2023 14:37-0500 SaO2% (BldA) [Mass fraction] 95 % Joshua Dariel KITCHEN LEAD.TRANSPORTATION DISPATCH MANAGER Work Phone: [facility] 09-28-2023 14:37-0500 Systolic blood pressure 108 mm[Hg] Joshua Dariel KITCHEN LEAD.TRANSPORTATION DISPATCH MANAGER Work Phone: [facility] 07-29-2023 13:54-0400 Body weight 97.07 kg NA Zaidi PA-C Work Phone: [facility] 07-29-2023 13:54-0400 Diastolic blood pressure 78 mm[Hg] NA Zaidi PA-C Work Phone: [facility] 07-29-2023 13:54-0400 Heart rate 67 /min NA Zaidi PA-C Work Phone: [facility] 07-29-2023 13:54-0400 Respiratory rate 16 /min NA Zaidi PA-C Work Phone: [facility] 07-29-2023 13:54-0400 SaO2% (BldA) [Mass fraction] 97 % NA Zaidi PA-C Work Phone: [facility] 07-29-2023 13:54-0400 Systolic blood pressure 118 mm[Hg] NA Zaidi PA-C Work Phone: [facility] 07-07-2023 13:42-0400 Body height 180.3 cm Gudelia Samuel MD Work Phone: [facility] 07-07-2023 13:42-0400 Body weight 95.25 kg Gudelia Samuel MD Work Phone: [facility] 07-07-2023 13:42-0400 Respiratory rate 18 /min Gudelia Samuel MD Work Phone: [facility] 06-28-2023 13:59-0400 Body weight 95.25 kg NA Zaidi PA-C Work Phone: [facility] 06-28-2023 13:59-0400 Diastolic blood pressure 100 mm[Hg] NA Zaidi PA-C Work Phone: [facility] 06-28-2023 13:59-0400 Heart rate 80 /min NA Zaidi PA-C Work Phone: [facility] 06-28-2023 13:59-0400 Respiratory rate 16 /min NA Zaidi PA-C Work Phone: [facility] 06-28-2023 13:59-0400 Systolic blood pressure 152 mm[Hg] NA Zaidi PA-C Work Phone: [facility] 05-12-2023 09:02-0400 Body height 180.3 cm Gudelia Samuel MD Work Phone: [facility] 05-12-2023 09:02-0400 Body weight 86.64 kg Gudelia Samuel MD Work Phone: [facility] 05-12-2023 09:02-0400 Respiratory rate 16 /min Gudelia Samuel MD Work Phone: [facility] 05-07-2023 15:08-0400 Body temperature 97.11 [degF] Sanjay Masci DO Work Phone: [facility] 05-07-2023 15:08-0400 Body weight 86.86 kg Sanjay Masci DO Work Phone: [facility] 05-07-2023 15:08-0400 Diastolic blood pressure 50 mm[Hg] Sanjay Masci DO Work Phone: [facility] 05-07-2023 15:08-0400 Heart rate 83 /min Sanjay Masci DO Work Phone: [facility] 05-07-2023 15:08-0400 SaO2% (BldA) [Mass fraction] 96 % Sanjay Masci DO Work Phone: [facility] 05-07-2023 15:08-0400 Systolic blood pressure 81 mm[Hg] Sanjay Masci DO Work Phone: [facility] 03-31-2023 09:45-0400 Body height 180.3 cm Gudelia Samuel MD Work Phone: [facility] 03-31-2023 09:45-0400 Body weight 100.7 kg Gudelia Samuel MD Work Phone: [facility] 03-31-2023 09:45-0400 Respiratory rate 20 /min Gudelia Samuel MD Work Phone: [facility] 03-17-2023 09:06-0400 Body height 177.8 cm Gudelia Samuel MD Work Phone: [facility] 03-17-2023 09:06-0400 Body weight 100.25 kg Gudelia Samuel MD Work Phone: [facility] 03-17-2023 09:06-0400 Respiratory rate 20 /min Gudelia Samuel MD Work Phone: [facility] 02-24-2023 14:34-0400 Body height 177.8 cm Gudelia Samuel MD Work Phone: [facility] 02-24-2023 14:34-0400 Body weight 98.88 kg Gudelia Samuel MD Work Phone: [facility] 02-24-2023 14:34-0400 Respiratory rate 16 /min Gudelia Samuel MD Work Phone: [facility] 02-16-2023 15:24-0400 Body height 177.8 cm Dany Gomez PA-C Work Phone: [facility] 02-16-2023 15:24-0400 Body temperature 97.39 [degF] Dany Gomez PA-C Work Phone: [facility] 02-16-2023 15:24-0400 Body weight 98.88 kg Dany Gomez PA-C Work Phone: [facility] 02-16-2023 15:24-0400 Diastolic blood pressure 80 mm[Hg] Dany Gomez PA-C Work Phone: [facility] 02-16-2023 15:24-0400 Heart rate 84 /min Dany Gomez PA-C Work Phone: [facility] 02-16-2023 15:24-0400 Respiratory rate 14 /min Dany Gomez PA-C Work Phone: [facility] 02-16-2023 15:24-0400 SaO2% (BldA) [Mass fraction] 94 % Dany Gomez PA-C Work Phone: [facility] 02-16-2023 15:24-0400 Systolic blood pressure 136 mm[Hg] Dany Gomez PA-C Work Phone: [facility] 02-11-2023 13:53-0400 Body temperature 98.1 [degF] Gracy Dahlhausen KITCHEN LEAD.TRANSPORTATION DISPATCH MANAGER Work Phone: [facility] 02-11-2023 13:53-0400 Diastolic blood pressure 74 mm[Hg] Gracy Dahlhausen KITCHEN LEAD.TRANSPORTATION DISPATCH MANAGER Work Phone: [facility] 02-11-2023 13:53-0400 Heart rate 99 /min Gracy Dahlhausen KITCHEN LEAD.TRANSPORTATION DISPATCH MANAGER Work Phone: [facility] 02-11-2023 13:53-0400 Respiratory rate 20 /min Gracy Dahlhausen KITCHEN LEAD.TRANSPORTATION DISPATCH MANAGER Work Phone: [facility] 02-11-2023 13:53-0400 SaO2% (BldA) [Mass fraction] 96 % Gracy Dahlhausen KITCHEN LEAD.TRANSPORTATION DISPATCH MANAGER Work Phone: [facility] 02-11-2023 13:53-0400 Systolic blood pressure 110 mm[Hg] Gracy Dahlhausen KITCHEN LEAD.TRANSPORTATION DISPATCH MANAGER Work Phone: [facility] 01-27-2023 15:04-0500 Body height 177.8 cm Gudelia Samuel MD Work Phone: [facility] 01-27-2023 15:04-0500 Body weight 99.79 kg Gudelia Samuel MD Work Phone: [facility] 01-27-2023 15:04-0500 Respiratory rate 20 /min Gudelia Samuel MD Work Phone: [facility] 11-19-2022 16:07-0500 Body weight 98.43 kg NA Zaidi PA-C Work Phone: [facility] 11-19-2022 16:07-0500 Diastolic blood pressure 90 mm[Hg] NA Zaidi PA-C Work Phone: [facility] 11-19-2022 16:07-0500 Heart rate 74 /min NA Zaidi PA-C Work Phone: [facility] 11-19-2022 16:07-0500 Respiratory rate 18 /min NA Zaidi PA-C Work Phone: [facility] 11-19-2022 16:07-0500 SaO2% (BldA) [Mass fraction] 98 % NA Zaidi PA-C Work Phone: [facility] 11-19-2022 16:07-0500 Systolic blood pressure 138 mm[Hg] NA Zaidi PA-C Work Phone: [facility] 11-02-2022 11:04-0500 Diastolic blood pressure 88 mm[Hg] Abena Haagen KITCHEN LEAD.TRANSPORTATION DISPATCH MANAGER Work Phone: [facility] 11-02-2022 11:04-0500 Heart rate 79 /min Abena Haagen KITCHEN LEAD.TRANSPORTATION DISPATCH MANAGER Work Phone: [facility] 11-02-2022 11:04-0500 Respiratory rate 18 /min Abena Haagen KITCHEN LEAD.TRANSPORTATION DISPATCH MANAGER Work Phone: [facility] 11-02-2022 11:04-0500 SaO2% (BldA) [Mass fraction] 98 % Abena Haagen KITCHEN LEAD.TRANSPORTATION DISPATCH MANAGER Work Phone: [facility] 11-02-2022 11:04-0500 Systolic blood pressure 144 mm[Hg] Abena Haagen KITCHEN LEAD.TRANSPORTATION DISPATCH MANAGER Work Phone: [facility] 09-10-2022 10:46-0400 Body weight 100.25 kg NA Zaidi PA-C Work Phone: [facility] 09-10-2022 10:46-0400 Diastolic blood pressure 84 mm[Hg] NA Zaidi PA-C Work Phone: [facility] 09-10-2022 10:46-0400 Heart rate 93 /min NA Ziadi PA-C Work Phone: [facility] 09-10-2022 10:46-0400 Respiratory rate 16 /min NA Zaidi PA-C Work Phone: [facility] 09-10-2022 10:46-0400 SaO2% (BldA) [Mass fraction] 97 % NA Zaidi PA-C Work Phone: [facility] 09-10-2022 10:46-0400 Systolic blood pressure 144 mm[Hg] HONEY Zaidi PA-C Work Phone: [facility] 08-10-2022 10:16-0400 Body height 180.3 cm Brock Portillo MD Work Phone: [facility] 08-10-2022 10:16-0400 Body weight 101.61 kg Brock Portillo MD Work Phone: [facility] 08-10-2022 10:16-0400 Diastolic blood pressure 91 mm[Hg] Brock Portillo MD Work Phone: [facility] 08-10-2022 10:16-0400 Heart rate 69 /min Brock Portillo MD Work Phone: [facility] 08-10-2022 10:16-0400 Respiratory rate 16 /min Brock Portillo MD Work Phone: [facility] 08-10-2022 10:16-0400 SaO2% (BldA) [Mass fraction] 96 % Brock Portillo MD Work Phone: [facility] 08-10-2022 10:16-0400 Systolic blood pressure 142 mm[Hg] Brock Portillo MD Work Phone: [facility] 06-18-2022 11:23-0400 Body temperature 97.39 [degF] Gracy Dayeimihausen KITCHEN LEAD.TRANSPORTATION DISPATCH MANAGER Work Phone: [facility] 06-18-2022 11:23-0400 Body weight 101.15 kg Gracy Dahlhausen KITCHEN LEAD.TRANSPORTATION DISPATCH MANAGER Work Phone: [facility] 06-18-2022 11:23-0400 Diastolic blood pressure 86 mm[Hg] Gracy Dahlhausen KITCHEN LEAD.TRANSPORTATION DISPATCH MANAGER Work Phone: [facility] 06-18-2022 11:23-0400 Heart rate 88 /min Gracy Dahlhausen KITCHEN LEAD.TRANSPORTATION DISPATCH MANAGER Work Phone: [facility] 06-18-2022 11:23-0400 Respiratory rate 18 /min Gracy Orion KITCHEN LEAD.TRANSPORTATION DISPATCH MANAGER Work Phone: [facility] 06-18-2022 11:23-0400 SaO2% (BldA) [Mass fraction] 96 % Gracy Lamhausen KITCHEN LEAD.TRANSPORTATION DISPATCH MANAGER Work Phone: [facility] 06-18-2022 11:23-0400 Systolic blood pressure 124 mm[Hg] Gracypierre Fritzhauskathie KITCHEN LEAD.TRANSPORTATION DISPATCH MANAGER Work Phone: [facility] 05-12-2022 11:45-0400 Body weight 101.61 kg NA Zaidi PA-C Work Phone: [facility] 05-12-2022 11:45-0400 Diastolic blood pressure 74 mm[Hg] NA Zaidi PA-C Work Phone: [facility] 05-12-2022 11:45-0400 Heart rate 73 /min NA Zaidi PA-C Work Phone: [facility] 05-12-2022 11:45-0400 Respiratory rate 20 /min NA Zaidi PA-C Work Phone: [facility] 05-12-2022 11:45-0400 SaO2% (BldA) [Mass fraction] 97 % NA Zaidi PA-C Work Phone: [facility] 05-12-2022 11:45-0400 Systolic blood pressure 122 mm[Hg] NA Zaidi PA-C Work Phone: [facility] 05-07-2022 16:01-0400 Body height 181 cm Sanjay Masci DO Work Phone: [facility] 05-07-2022 16:01-0400 Body temperature 98.1 [degF] Sanjay Masci DO Work Phone: [facility] 05-07-2022 16:01-0400 Body weight 100.92 kg Sanjay Masci DO Work Phone: [facility] 05-07-2022 16:01-0400 Diastolic blood pressure 77 mm[Hg] Sanjay Cobbi DO Work Phone: [facility] 05-07-2022 16:01-0400 Heart rate 71 /min Sanjay Cobbi DO Work Phone: [facility] 05-07-2022 16:01-0400 SaO2% (BldA) [Mass fraction] 96 % Sanjay Cobbi DO Work Phone: [facility] 05-07-2022 16:01-0400 Systolic blood pressure 166 mm[Hg] Sanjay Cobbi DO Work Phone: [facility] 04-16-2022 11:30-0400 Body height 188 cm Mayra GOEL- Coleen Work Phone: [facility] 04-16-2022 11:30-0400 Body weight 101.61 kg Mayra GOEL- C Work Phone: [facility] 04-16-2022 11:30-0400 Diastolic blood pressure 73 mm[Hg] Mayra GOEL-C Work Phone: [facility] 04-16-2022 11:30-0400 Heart rate 89 /min Mayra GOEL- C Work Phone: [facility] 04-16-2022 11:30-0400 Systolic blood pressure 117 mm[Hg] Mayra GOEL-C Work Phone: [facility] 03-19-2022 13:48-0400 Body temperature 98.6 [degF] Gracy Dahlhausen KITCHEN LEAD.TRANSPORTATION DISPATCH MANAGER Work Phone: [facility] 03-19-2022 13:48-0400 Body weight 103.42 kg Gracy Dahlhausen KITCHEN LEAD.TRANSPORTATION DISPATCH MANAGER Work Phone: [facility] 03-19-2022 13:48-0400 Diastolic blood pressure 68 mm[Hg] Gracy Dahlhausen KITCHEN LEAD.TRANSPORTATION DISPATCH MANAGER Work Phone: [facility] 03-19-2022 13:48-0400 Heart rate 99 /min Gracy Dahlhausen KITCHEN LEAD.TRANSPORTATION DISPATCH MANAGER Work Phone: [facility] 03-19-2022 13:48-0400 Respiratory rate 18 /min Gracy Dayeimihausen KITCHEN LEAD.TRANSPORTATION DISPATCH MANAGER Work Phone: [facility] 03-19-2022 13:48-0400 SaO2% (BldA) [Mass fraction] 96 % Gracy Dahlhausen KITCHEN LEAD.TRANSPORTATION DISPATCH MANAGER Work Phone: [facility] 03-19-2022 13:48-0400 Systolic blood pressure 126 mm[Hg] Gracy Dayeimihausen KITCHEN LEAD.TRANSPORTATION DISPATCH MANAGER Work Phone: [facility] 02-23-2022 09:45-0400 Body height 180.3 cm Pacc 1 Work Phone: [facility] 02-23-2022 09:45-0400 Body temperature 97.81 [degF] Pacc 1 Work Phone: [facility] 02-23-2022 09:45-0400 Body weight 102.51 kg Pacc 1 Work Phone: [facility] 02-23-2022 09:45-0400 Diastolic blood pressure 102 mm[Hg] Pacc 1 Work Phone: [facility] 02-23-2022 09:45-0400 Heart rate 89 /min Pacc 1 Work Phone: [facility] 02-23-2022 09:45-0400 Respiratory rate 16 /min Pacc 1 Work Phone: [facility] 02-23-2022 09:45-0400 SaO2% (BldA) [Mass fraction] 100 % Pacc 1 Work Phone: [facility] 02-23-2022 09:45-0400 Systolic blood pressure 154 mm[Hg] Pacc 1 Work Phone: [facility] 12-29-2021 10:12-0500 Diastolic blood pressure 90 mm[Hg] Brock Portillo MD Work Phone: [facility] 12-29-2021 10:12-0500 Heart rate 82 /min Brock Portillo MD Work Phone: [facility] 12-29-2021 10:12-0500 Systolic blood pressure 134 mm[Hg] Brock Portillo MD Work Phone: [facility] 12-29-2021 09:41-0500 Body height 180.3 cm Brock Portillo MD Work Phone: [facility] 12-29-2021 09:41-0500 Body weight 102.33 kg Brock Portillo MD Work Phone: [facility] 12-29-2021 09:41-0500 SaO2% (BldA) [Mass fraction] 97 % Brock Portillo MD Work Phone: [facility] Encounters Encounter Date Encounter Type Care Provider Facility Start: 09-12-2024 End: 09-12-2024 Telephone encounter Vicente Quintana MD Work Phone: [facility] Comment on above: Patient Update Start: 09-12-2024 End: 09-12-2024 Home visit Inez AVILA Work Phone: [facility] Comment on above: WRAPPER DIPPER CARE COORDINATIO N Start: 09-11-2024 End: 09-11-2024 Patient encounter procedure Vicente Quintana MD Work Phone: [facility] Comment on above: BPH with obstruction /lower urinary tract symptoms (Primary Dx); Urine retention Start: 09-11-2024 End: 09-11-2024 Home visit Inez AVILA Work Phone: [facility] Comment on above: WRAPPER DIPPER CARE COORDINATIO N CARE COORDINATION Start: 09-07-2024 End: 09-11-2024 Telephone encounter Navin Ackerman MD Work Phone: [facility] Comment on above: Patient Update; Orde rs Start: 09-07-2024 End: 09-07-2024 Home visit Inez AVILA Work Phone: [facility] Comment on above: WRAPPER DIPPER CARE COORDINATIO N CARE COORDINATION Start: 09-06-2024 End: 09-07-2024 Telephone encounter Andressa Shah RN Work Phone: [facility] Comment on above: Patient Update; Home Care Start: 09-06-2024 End: 09-06-2024 Home visit Andressa Shah RN Work Phone: [facility] Comment on above: SN ROUTINE Start: 08-30-2024 End: 08-30-2024 Home visit Andressa Shah RN Work Phone: [facility] Comment on above: SN ROUTINE Start: 08-29-2024 End: 08-29-2024 Home visit Inez HOWEW Work Phone: [facility] Comment on above: WRAPPER DIPPER CARE COORDINATIO N Start: 08-28-2024 End: 08-28-2024 Home visit Inez HOWEW Work Phone: [facility] Comment on above: WRAPPER DIPPER CARE COORDINATIO N Start: 08-28-2024 End: 08-28-2024 Home visit Inez HOWEW Work Phone: [facility] Comment on above: WRAPPER DIPPER CARE COORDINATIO N Start: 08-25-2024 End: 08-25-2024 Home visit Mary Lopez OT Work Phone: [facility] Comment on above: OT DISC DC W VISIT Start: 08-24-2024 End: 08-24-2024 Refill Lena Steele [facility] Comment on above: Refill Request PT DISC DC W VISIT Start: 08-23-2024 End: 08-23-2024 Home visit Jocelyn aPlafox RAYON TESTER Work Phone: [facility] Comment on above: RAYON TESTER DISC DC W VISIT SN ROUTINE Start: 08-22-2024 End: 08-22-2024 ambulatory Marbella ZAIDI Facility:[facility] Start: 08-22-2024 End: 08-22-2024 Patient encounter procedure Dany Gomez PA-C Work Phone: Urology Comment on above: Urine retention (Philipp michael Dx) Start: 08-21-2024 End: 08-21-2024 Refill Vicente Quintana MD Work Phone: [facility] Comment on above: Refill Request Start: 08-18-2024 End: 08-18-2024 Home visit Inez Sean AVILA Work Phone: [facility] Comment on above: WRAPPER DIPPER CARE COORDINATIO N Start: 08-17-2024 End: 08-17-2024 Telephone encounter hSelby Sidhu [facility] Comment on above: Compliance Adherence (Adherence pharmacy referral ) Refill Request Start: 08-17-2024 End: 08-17-2024 Home visit Inez Sean AVILA Work Phone: [facility] Comment on above: WRAPPER DIPPER CARE COORDINATIO N Start: 08-17-2024 End: 08-17-2024 Home visit Inez Musesarwat AVILA Work Phone: [facility] Comment on above: WRAPPER DIPPER CARE COORDINATIO N Start: 08-16-2024 End: 08-16-2024 Home visit Loreta Moreno OBREGON/L Work Phone: [facility] Comment on above: OBREGON ROUTINE Refill Request SN ROUTINE Start: 08-16-2024 End: 08-16-2024 Home visit Jocelyn Palafox RAYON TESTER Work Phone: [facility] Comment on above: RAYON TESTER ROUTINE Start: 08-15-2024 End: 08-15-2024 Home visit Noa Lima PT Work Phone: [facility] Comment on above: PT ROUTINE Start: 08-11-2024 End: 08-11-2024 Home visit Andressa Shah RN Work Phone: [facility] Comment on above: SN ROUTINE Start: 08-09-2024 End: 08-09-2024 Telephone encounter Inez AVILA Work Phone: [facility] Comment on above: Home Care Start: 08-09-2024 End: 08-09-2024 Home visit Molly Mariscal DIESEL PILE HAMMER OPERATOR Work Phone: [facility] Comment on above: DIESEL PILE HAMMER OPERATOR ROUTINE RAYON TESTER ROUTINE WRAPPER DIPPER CARE COORDINATIO N SN ROUTINE Start: 08-08-2024 End: 08-08-2024 Home visit Loreta Morneo OBREGON/L Work Phone: [facility] Comment on above: OBREGON ROUTINE Start: 08-07-2024 End: 08-07-2024 Home visit Molly Mariscal DIESEL PILE HAMMER OPERATOR Work Phone: [facility] Comment on above: DIESEL PILE HAMMER OPERATOR ROUTINE WRAPPER DIPPER CARE COORDINATIO N Start: 08-04-2024 End: 08-04-2024 Home visit Jocelyn Palafox RAYON TESTER Work Phone: [facility] Comment on above: RAYON TESTER ROUTINE Start: 08-04-2024 End: 08-04-2024 Home visit Inez Estrada INSTRUCTIONAL SYSTEMS DESIGNER Work Phone: [facility] Comment on above: WRAPPER DIPPER CARE COORDINATIO N DIESEL PILE HAMMER OPERATOR ROUTINE SN ROUTINE Start: 08-02-2024 End: 08-02-2024 Telephone encounter Bharathi Wiggins APRN.TRANSPORTATION DISPATCH MANAGER, DNP Work Phone: [facility] Comment on above: Patient Question Start: 08-02-2024 End: 08-02-2024 Home visit Inez Estrada INSTRUCTIONAL SYSTEMS DESIGNER Work Phone: [facility] Comment on above: WRAPPER DIPPER CARE COORDINATIO N Start: 08-01-2024 End: 08-01-2024 Telephone encounter Inez Estrada INSTRUCTIONAL SYSTEMS DESIGNER Work Phone: [facility] Comment on above: Home Skilled Nursing Care (BP ulises alexander ) Start: 08-01-2024 End: 08-01-2024 Home visit Molly Mariscal DIESEL PILE HAMMER OPERATOR Work Phone: [facility] Comment on above: DIESEL PILE HAMMER OPERATOR ROUTINE WRAPPER DIPPER CARE COORDINATIO N CARE COORDINATION WRAPPER DIPPER EVAL Start: 07-31-2024 End: 07-31-2024 Orders Only Rachel Fisher RN [facility] Comment on above: BPH with obstruction /lower urinary tract symptoms (Primary Dx) WRAPPER DIPPER CARE COORDINATIO N OT EVAL SN ROUTINE Start: 07-30-2024 End: 07-30-2024 Telephone encounter America Nascimento PT Work Phone: [facility] Comment on above: Home Care (PT Evalua tion/Orthostatic Hypotension) Start: 07-29-2024 End: 07-29-2024 Home visit America Nascimento PT Work Phone: [facility] Comment on above: PT EVAL Start: 07-28-2024 End: 08-11-2024 Telephone encounter Edenilson Min RN Work Phone: [facility] Comment on above: Home Care (Request f or WRAPPER DIPPER referral) Start: 07-28-2024 End: 07-28-2024 Home visit Edenilson Min RN Work Phone: [facility] Comment on above: SN SOC Start: 07-26-2024 End: 08-08-2024 Telephone encounter Vicente Quintana MD Work Phone: Urology Comment on above: Appointment Home Care ( to laci fong.) Home Care (Confirmat ion Call ) Start: 07-25-2024 End: 07-26-2024 ambulatory VICENTE QUINTANA Facility:[facility] Start: 07-17-2024 End: 07-17-2024 Telephone encounter Vicente Quintana MD Work Phone: [facility] Comment on above: Results Start: 07-14-2024 End: 07-14-2024 Telephone encounter Marbella Zaidi PA-C Work Phone: [facility] [place] Comment on above: Results Start: 07-11-2024 End: 07-11-2024 Telephone encounter Vicente Quintana MD Work Phone: [facility] Comment on above: Surgery Scheduled Start: 07-10-2024 End: 07-10-2024 ambulatory M IGNACIOJESSICA ZAIDI Facility:[facility] Start: 07-10-2024 End: 07-10-2024 Office outpatient visit 25 minutes Abena Beckford APRN.TRANSPORTATION DISPATCH MANAGER Work Phone: [facility] [place] Comment on above: DDD (degenerative di sc disease), lumbar (Primary Dx); 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; Overflow incontinence of urine; Chronic pain syndrome; Primary hypertension; Sleeping difficulty; Chronic vertigo Start: 07-10-2024 End: 07-10-2024 ambulatory ABENA PRINCE Facility:[facility] Start: 07-10-2024 End: 07-10-2024 Patient encounter procedure Vicente Quintana MD Work Phone: [facility] Comment on above: Urine retention (Philipp michael Dx); Hydronephrosis, unspecified hydronephrosis type; BPH with obstruction/lower urinary tract symptoms BPH with obstruction /lower urinary tract symptoms (Primary Dx); Urine retention; Hydronephrosis, unspecified hydronephrosis type Start: 07-10-2024 End: 07-10-2024 [facility] VICENTE QUINTANA [facility] Start: 07-04-2024 End: 07-04-2024 [facility] Start: 07-04-2024 End: 07-04-2024 Nursing evaluation of patient and report Nurse Urol [facility] Work Phone: Urology Comment on above: Urine retention (Philipp michael Dx) Start: 06-21-2024 Telephone encounter Navin Ackerman MD Work Phone: [facility] Comment on above: Patient Update Start: 05-30-2024 End: 05-30-2024 Patient encounter procedure Kerri Farmer APRN.TRANSPORTATION DISPATCH MANAGER Work Phone: [facility] Comment on above: Problem with Karissa browne, initial encounter (HCC) (Primary Dx) Start: 05-30-2024 End: 05-30-2024 [facility] Start: 04-28-2024 End: 04-28-2024 [facility]ulatory [facility] Start: 04-25-2024 Telephone encounter Marbella Zaidi PA-C Work Phone: [facility] [place] Comment on above: [facility] update Start: 04-21-2024 Telephone encounter Saskia coronado KITCHEN LEAD.TRANSPORTATION DISPATCH MANAGER Work Phone: Urology Comment on above: [facility] [place] Change Ord ers Start: 04-19-2024 Telephone encounter Saskia coronado KITCHEN LEAD.TRANSPORTATION DISPATCH MANAGER Work Phone: Urology Start: 04-19-2024 End: 04-19-2024 ambulatory DEMETRICE MARCIAL Facility:[facility] Start: 04-19-2024 End: 04-19-2024 Patient encounter procedure Saskia Sears KITCHEN LEAD.TRANSPORTATION DISPATCH MANAGER Work Phone: Urology Comment on above: Urine retention (Philipp michael Dx); Hydronephrosis, unspecified hydronephrosis type; BPH with obstruction/lower urinary tract symptoms Start: 04-14-2024 Telephone encounter Marbella Zaidi PA-C Work Phone: [facility] [place] Comment on above: Orders; Appointment Start: 04-12-2024 Telephone encounter Marbella Zaidi PA-C Work Phone: [facility] [place] Comment on above: Orders FYI-PT plan of care Start: 04-10-2024 End: 04-10-2024 ambulatory Marbella ZAIDI Facility:[facility] Start: 04-10-2024 End: 04-10-2024 Patient encounter procedure Marbella Zaidi PA-C Work Phone: [facility] [place] Comment on above: DDD (degenerative [...] Telephone encounter Marbella Zaidi PA-C Work Phone: [facility] [place] Comment on above: Results; Home Health Point of Care Results Start: 04-04-2024 Telephone encounter Marbella GOEL-C Work Phone: [facility] [place] Comment on above: Orders Start: 03-28-2024 Refill Marbella cervantes PA-C Work Phone: [facility] [place] Comment on above: Patient Update; Refi ll Request (/) Start: 03-23-2024 Telephone encounter aMrbella Zaidi PA-C Work Phone: [facility] [place] Comment on above: Blood pressure readi ng Start: 03-21-2024 Telephone encounter Marbella Zaidi PA-C Work Phone: [facility] [place] Comment on above: [facility]- low blood pr essure Start: 03-20-2024 Telephone encounter Marbella Zaidi PA-C Work Phone: [facility] [place] Comment on above: [facility] OT Plan of Ca re; ST Order Request Patient Update Start: 03-17-2024 Telephone encounter Corrie Marinelli KITCHEN LEAD.LORRY WEIGHER Work Phone: [facility] [place] Start: 03-16-2024 Telephone encounter Marbella GOEL-C Work Phone: [facility] [place] Comment on above: Delay of care - verb al needed. home health requesti ng verbal order Start: 03-15-2024 Telephone encounter Marbella Zaidi PA-C Work Phone: [facility] [place] Comment on above: PT plan of care Start: 03-13-2024 End: 03-13-2024 ambulatory Marbella ZAIDI Facility:[facility] Start: 03-13-2024 End: 03-13-2024 Office outpatient visit 25 minutes Corrie Marinelli KITCHEN LEAD.LORRY WEIGHER Work Phone: [facility] [place] Comment on above: Sleeping difficulty (Primary Dx); Paresthesia of saddle area: Cauda equina ruled out; Primary hypertension; Progressive focal motor weakness Start: 03-13-2024 Telephone encounter Marbella Zaidi PA-C Work Phone: [facility] [place] Comment on above: [facility] HH- verbal order s/medication issues Start: 03-10-2024 Telephone encounter Navin Ackerman MD Work Phone: [facility] [place] Comment on above: home health calling Start: 03-06-2024 End: 03-06-2024 Patient encounter procedure Bharathi Wiggins KITCHEN LEAD.TRANSPORTATION DISPATCH MANAGER, DNP Work Phone: Urology Comment on above: No-show for appointm ent (Primary Dx) Start: 03-02-2024 Telephone encounter Deann WILKERSON Navigation Start: 02-24-2024 ambulatory Marbella Ignacio cervantes PA-C Work Phone: Ambulatory Surgery Start: 02-14-2024 Telephone encounter Deann WILKERSON Navigation Start: 02-09-2024 End: 02-09-2024 ambulatory Marbella ZAIDI Facility:[facility] Start: 02-09-2024 End: 02-09-2024 Patient encounter procedure Dennis Moore MD Work Phone: Urology Comment on above: Urinary retention (P rimary Dx); 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 Start: 02-09-2024 Telephone encounter Marbella OLEAC Work Phone: [facility] Comment on above: Home Care Start: 02-08-2024 Telephone encounter Deann WILKERSON Navigation Comment on above: Orders Start: 02-04-2024 Telephone encounter Marbella OLEAC Work Phone: [facility] [place] Comment on above: Insurance Authorizat ion Med Change Request; Other (Handicap placard ); Orders Start: 02-03-2024 End: 02-03-2024 ambulatory Marbella ZAIDI Facility:[facility] Start: 02-03-2024 End: 02-03-2024 Patient encounter procedure Marbella GOEL-C Work Phone: [facility] [place] Comment on above: Hospital discharge [...] Telephone encounter Marbella Zaidi PA-C Work Phone: [facility] [place] Comment on above: Orders Orders; Patient Upda te Start: 02-01-2024 Telephone encounter Deann Tyson Kasey Comment on above: Social Work Services Start: 01-31-2024 End: 01-31-2024 ambulatory Marbella ZAIDI Facility:[facility] Start: 01-31-2024 End: 01-31-2024 Patient encounter procedure Bharathi Wiggins APRN.MYRA, RENE Work Phone: Urology Comment on [...] Telephone encounter Abena Beckford APRN.CNP Work Phone: [facility] Comment on above: Results Start: 01-04-2024 End: 01-04-2024 ambulatory Marbella ZAIDI Facility:[facility] Start: 01-04-2024 End: 01-04-2024 Nursing evaluation of patient and report Nurse Urol Tori Romano Work Phone: Urology Comment on above: Urine retention (Philipp michael Dx) Start: 01-03-2024 End: 01-03-2024 ambulatory Marbella ZAIDI Facility:[facility] Start: 01-03-2024 Telephone encounter Marbella Zaidi PA-C Work Phone: [facility] [place] Comment on above: Results Start: 01-03-2024 End: 01-03-2024 Patient encounter procedure Bharathi Wiggins APRN.TRANSPORTATION DISPATCH MANAGER, DNP Work Phone: Urology Comment on above: Benign prostatic hyp erplasia with incomplete bladder emptying (Primary Dx); Overflow incontinence of urine; Screening for genitourinary condition; Urinary retention; Hydronephrosis, unspecified hydronephrosis type; Stage 3b chronic kidney disease (HCC) Patient left without being seen (Primary Dx) Start: 01-03-2024 End: 01-03-2024 ambulatory Marbella ZAIDI Facility:[facility] Start: 12-31-2023 Telephone encounter Navin Ackerman MD Work Phone: [facility] [place] Comment on above: Results Start: 12-31-2023 End: 12-31-2023 ambulatory Marbella ZAIDI Facility:[facility] Start: 12-31-2023 End: 12-31-2023 Subsequent hospital visit by physician [facility] 1 Work Phone: Radiology Comment on above: Acute cystitis witho ut hematuria [N30.00] Start: 12-29-2023 Telephone encounter Abena hinojosa APRN.MYRA Work Phone: [facility] [place] Comment on above: Results Start: 12-28-2023 End: 12-28-2023 ambulatory Marbella ZAIDI Facility:[facility] Start: 12-28-2023 Encounter for other preprocedural examination ABENA BECKFORD [facility] Start: 12-27-2023 End: 12-28-2023 ambulatory Marbella ZAIDI Facility:[id number] Start: 12-27-2023 Encounter for other preprocedural examination [facility] Start: 12-27-2023 Telephone encounter Marbella WattersIgnacio Dejuan PAUL Work Phone: [facility] [place] Comment on above: Forms (Surgical Kellyshiloh zavaleta) Start: 12-20-2023 End: 12-20-2023 ambulatory [facility] Facility:[id number] Start: 12-17-2023 End: 12-17-2023 ambulatory [facility] Facility:[facility] Start: 12-14-2023 End: 12-15-2023 ambulatory Marbella ZAIDI Facility:[id number] Start: 12-08-2023 End: 12-08-2023 ambulatory NORMA CADET Facility:[facility] Start: 12-01-2023 End: 12-01-2023 ambulatory GUDELIA SAMUEL Facility:[facility] Start: 10-29-2023 Telephone encounter Marbella Zaidi PA-C Work Phone: [facility] [place] Comment on above: Orders Start: 10-28-2023 End: 10-28-2023 ambulatory Marbella ZAIDI Facility:[facility] Start: 10-28-2023 End: 10-28-2023 Patient encounter procedure Marbella Zaidi PA-C Work Phone: [facility] [place] Comment on above: Primary hypertension [...] encounter procedure Gudelia Samuel MD Work Phone: [facility] Comment on above: Dislocation of hip j oint prosthesis, subsequent encounter (Primary Dx); 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, subsequent encounter; Spinal stenosis of cervical region; Spinal stenosis of lumbar region with neurogenic claudication; Myelopathy (HCC); Urinary incontinence, unspecified type Start: 10-20-2023 End: 10-20-2023 ambulatory Marbella ZAIDI Facility:[facility] Start: 09-28-2023 End: 09-28-2023 ambulatory Marbella ZAIDI Facility:[facility] Start: 09-28-2023 End: 09-28-2023 Patient encounter procedure Joshua Vieira APRN.CNP Work Phone: [facility] Comment on above: Urinary frequency (P rimary Dx) Start: 09-28-2023 Telephone encounter Marbella Zaidi AMANDO-C Work Phone: [facility] [place] Comment on above: HHC Order Needs Sign ed Start: 08-16-2023 Telephone encounter Marbella Zaidi AMANDO-C Work Phone: [facility] [place] Comment on above: Rx for outpatient PT Start: 08-05-2023 Telephone encounter Joshua baez APRN.TRANSPORTATION DISPATCH MANAGER Work Phone: [facility] Comment on above: Results Start: 07-29-2023 End: 07-29-2023 Patient encounter procedure Marbella Gomeshelen GOEL-C Work Phone: [facility] [place] Comment on above: Pain syndrome, chron ic (Primary Dx); Post laminectomy syndrome; Polyarthropathy; Sleeping difficulty; Paresthesia of saddle area: Cauda equina ruled out; Fecal smearing; Chronic constipation; S/P laminectomy; Intractable low back pain; Primary hypertension; MGUS (monoclonal gammopathy of unknown significance); Essential hypertension; S/P revision of total hip Start: 07-23-2023 Refill Marbella cervantes AMANDO-C Work Phone: [facility] [place] Comment on above: Refill Request Start: 07-21-2023 End: 07-14-2024 Telephone encounter Marbella Zaidi AMANDO-C Work Phone: [facility] [place] Comment on above: Orders Refill Request Start: 07-19-2023 Telephone encounter Marbella Zaidi LEFTYC Work Phone: [facility] [place] Comment on above: Verbal needed for SN frequency order. Start: 07-16-2023 Telephone encounter Marbella Zaidi AMANDO-C Work Phone: [facility] [place] Comment on above: Medication Request; verbal orders for residential Start: 07-12-2023 Telephone encounter Dany GOEL-C Work Phone: Urology Comment on above: Blindstitch Hemmer - O ther Start: 07-09-2023 Telephone encounter Marbella Gomeshelen GOEL-C Work Phone: [facility] [place] Comment on above: Patient Update Start: 07-07-2023 End: 07-07-2023 Patient encounter procedure Gudelia Samuel MD Work Phone: [facility] Comment on above: Dislocation of hip j oint prosthesis, subsequent encounter (Primary Dx); 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, subsequent encounter Start: 07-06-2023 End: 07-06-2023 Subsequent hospital visit by physician Lainey [facility] (I-Stat) Work Phone: Cat Scan Comment on above: Right flank pain [R1 0.9] Start: 07-05-2023 Refill Marbella cervantes PA-C Work Phone: [facility] [place] Comment on above: Refill Request Start: 07-03-2023 Telephone encounter Marbella Zaidi PA-C Work Phone: [facility] [place] Comment on above: Results Start: 07-02-2023 Telephone encounter Marbella Zaidi PA-C Work Phone: [facility] [place] Comment on above: Orders Start: 07-01-2023 Telephone encounter Marbella Zaidi PA-C Work Phone: [facility] [place] Comment on above: Results Start: 06-30-2023 Telephone encounter Marbella Zaidi PA-C Work Phone: [facility] [place] Comment on above: [facility] PT POC Start: 06-29-2023 Telephone encounter Marbella Zaidi PA-C Work Phone: [facility] [place] Comment on above: Patient Update Results Start: 06-28-2023 End: 06-28-2023 Patient encounter procedure Marbella Zaidi PA-C Work Phone: [facility] [place] Comment on above: Primary hypertension (Primary Dx); [...] syndrome, chronic Start: 06-24-2023 Telephone encounter Marbella Zaidi PA-C Work Phone: [facility] [place] Comment on above: Home Health Point of Care Results Start: 05-12-2023 End: 05-12-2023 Patient encounter procedure Gudelia Samuel MD Work Phone: [facility] Comment on above: Dislocation of hip [...] procedure Sanjay Bhat DO Work Phone: [facility] Start: 04-16-2023 Telephone encounter Sanjay ortega DO Work Phone: Hematology/Oncology Comment on above: Orders Start: 03-31-2023 End: 03-31-2023 Patient encounter procedure Gudelia Samuel MD Work Phone: [facility] Comment on above: Dislocation of hip j oint prosthesis, subsequent encounter (Primary Dx); 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, subsequent encounter Start: 03-17-2023 End: 03-17-2023 Patient encounter procedure Gudelia Samuel MD Work Phone: [facility] Comment on above: Periprosthetic fract ure of femur following total replacement of hip, subsequent encounter (Primary Dx); Dislocation of hip joint prosthesis, subsequent encounter Start: 03-12-2023 Telephone encounter Gudelia walker MD Work Phone: [facility] Comment on above: Contact Center Call Start: 03-11-2023 Telephone encounter Gudelia walker MD Work Phone: [facility] Comment on above: Future Appointment Start: 02-24-2023 End: 02-24-2023 Patient encounter procedure Gudelia Samuel MD Work Phone: [facility] Comment on above: Periprosthetic fract ure of femur following total replacement of hip, subsequent encounter (Primary Dx) Start: 02-18-2023 Orders Only Dashawn Wetzel PA-C Work Phone: Urology Start: 02-16-2023 End: 02-16-2023 Patient encounter procedure Dany Gomez PA-C Work Phone: Urology Comment on above: Benign prostatic hyp erplasia with incomplete bladder emptying (Primary Dx); Overflow incontinence of urine; Dysuria Start: 02-11-2023 End: 02-11-2023 Patient encounter procedure Gracy Sears KITCHEN LEAD.TRANSPORTATION DISPATCH MANAGER Work Phone: Neurology Comment on above: Neuropathy [...] encounter procedure Gudelia Samuel MD Work Phone: [facility] Comment on above: Periprosthetic fract ure of femur following total replacement of hip, subsequent encounter (Primary Dx) Start: 01-20-2023 Telephone encounter Gudelia walker MD Work Phone: [facility] Comment on above: Contact Center Call Start: 01-11-2023 Refill Alysia fam KITCHEN LEAD.TRANSPORTATION DISPATCH MANAGER Work Phone: [facility] Comment on above: Refill Request Start: 12-16-2022 Telephone encounter Andra Hough MD Work Phone: Endocrinology Comment on above: Results Start: 12-08-2022 ambulatory ANDRA HOUGH Facility:[facility] Start: 12-02-2022 Telephone encounter Marbella Zaidi PA-C Work Phone: [facility] Comment on above: Information Start: 11-24-2022 Telephone encounter Marbella Zaidi BEVERLY Work Phone: [facility] [place] Comment on above: Patient Question Appointment Start: 11-19-2022 End: 11-19-2022 Patient encounter procedure Marbella Zaidi BEVERLY Work Phone: [facility] [place] Comment on above: Hospital discharge f ollow-up (Primary Dx); Urinary incontinence, unspecified type; Therapeutic opioid induced constipation; S/P laminectomy; Paresthesia of saddle area: Cauda equina ruled out; Intractable back pain; MGUS (monoclonal gammopathy of unknown significance); Hypogonadism in male; High serum follicle stimulating hormone (FSH) Start: 11-16-2022 ambulatory Joya Carpenter RN NURS E HOSPICE SOCIAL WORKER Comment on above: Information Start: 11-14-2022 End: 11-16-2022 [facility] Facility[facility] Start: 11-12-2022 Telephone encounter Deann sigala MD Work Phone: [facility] Comment on above: Hospital To Hospital Start: 11-11-2022 End: 11-14-2022 Evaluation and management of inpatient Marbella ZAIDI Facility:[facility] Start: 11-05-2022 Telephone encounter Andra Hough MD Work Phone: Endocrinology Comment on above: Results Start: 11-03-2022 Telephone encounter Abena hinojosa APRN.TRANSPORTATION DISPATCH MANAGER Work Phone: [facility] Comment on above: Results Start: 11-02-2022 End: 11-02-2022 Subsequent hospital visit by physician Dhruv [facility] [place] Work Phone: Radiology Comment on above: Closed fracture of m ultiple ribs of left side with routine healing, subsequent encounter [S22.42XD] Start: 11-02-2022 End: 11-02-2022 Office outpatient visit 25 minutes Abena Beckford APRN.TRANSPORTATION DISPATCH MANAGER Work Phone: [facility] [place] Comment on above: Closed fracture of m ultiple ribs of left side with routine healing, subsequent encounter (Primary Dx) Start: 09-27-2022 Telephone encounter Marbella Carlson Dejuan PAUL Work Phone: [facility] [place] Comment on above: Results Start: 09-16-2022 Telephone encounter Marbella Carlson Zaidi BEVERLY Work Phone: [facility] [place] Comment on above: Results - Mri Start: 09-11-2022 Telephone encounter Marbella Carlson Dejuan PAUL Work Phone: [facility] [place] Comment on above: Orders Start: 09-10-2022 End: 09-10-2022 Patient encounter procedure Marbella Carlson Dejuan GOEL-Coleen Work Phone: [facility] [place] Comment on above: Essential hypertensi on (Primary Dx); MGUS (monoclonal gammopathy of unknown significance); Neurogenic claudication (HCC); S/P laminectomy; Status post replacement of right shoulder joint; Status post hip replacement, unspecified laterality; Obesity, Class I, BMI 30-34.9; Chronic hepatitis C without hepatic coma (HCC); Hypogonadism in male Start: 08-28-2022 End: 08-28-2022 Subsequent hospital visit by physician [facility] Work Phone: Radiology Comment on above: Spinal stenosis of c ervical region [M48.02] Start: 08-10-2022 End: 08-10-2022 Patient encounter procedure Brock Portillo MD Work Phone: [facility] [place] Comment on above: Cervical spondylosis with myelopathy (Primary Dx); Spinal stenosis of cervical region Start: 08-03-2022 Refill Marbella Carlson Eliseo cervantes PA-C Work Phone: [facility] [place] Comment on above: Refill Request Start: 07-04-2022 Telephone encounter Marbella Carlson Dejuan PAUL Work Phone: [facility] [place] Comment on above: Results Start: 07-01-2022 End: 07-01-2022 Subsequent hospital visit by physician Mri Radio [facility] Wstr (I-Stat/1.5t) Work Phone: Radiology Comment on above: Chronic vertigo [R42 ] Start: 06-18-2022 End: 06-18-2022 Patient encounter procedure Gracy Sears BRIANA Work Phone: Neurology Comment on above: Neuropathy associate d with MGUS (HCC) (Primary Dx); Hepatitis C associated neuropathy (HCC); Spinal stenosis of lumbar region with neurogenic claudication; Chronic pain of both knees; Hip pain; Abnormality of gait; Neck pain; Numbness and tingling of both upper extremities; Dizziness; Cervical stenosis of spinal canal Start: 06-10-2022 Telephone encounter Marbella Zaidi PA-C Work Phone: [facility] [place] Comment on above: Orders (MRI) Start: 05-29-2022 Refill Brock Portillo MD Work Phone: Neurology Comment on above: Refill Request Start: 05-22-2022 Refill Marbella GOEL-C Work Phone: [facility] [place] Comment on above: Refill Request Start: 05-12-2022 End: 05-12-2022 Patient encounter procedure Marbella Zaidi PA-C Work Phone: [facility] [place] Comment on above: Essential hypertensi [...] procedure Sanjay Bhat DO Work Phone: [facility]ISE[facility]rem[facility] Start: 05-06-2022 Telephone encounter Navin Ackerman MD Work Phone: [facility] [place] Comment on above: Results Start: 05-04-2022 Orders Only Sanjay Quinn Work Phone: Hematology/Oncology Comment on above: MGUS (monoclonal pily mopathy of unknown significance) (Primary Dx) Start: 04-16-2022 End: 04-16-2022 ambulatory STEVE JO Facility:[facility] Start: 04-16-2022 End: 04-16-2022 Patient encounter procedure Mayra Gale PA-C Work Phone: Neurosurgery Comment on above: Spinal stenosis, lum bar region with neurogenic claudication (Primary Dx) Start: 04-14-2022 Telephone encounter Navin Ackerman MD Work Phone: [facility] [place] Comment on above: Occupational Therapy Plan of Care; Social Work orders Start: 04-09-2022 End: 04-09-2022 Subsequent hospital visit by physician Dhruv [facility] [place] Zarate Work Phone: Radiology Comment on above: Neck pain [M54.2] Start: 04-07-2022 Telephone encounter Navin Ackerman MD Work Phone: [facility] [place] Comment on above: Skillled Nursing Onesimo n of Care; FYI-No Action Needed Start: 04-06-2022 ambulatory Yudy fam RN Work Phone: [facility] [employer] Start: 04-06-2022 Telephone encounter Brock lane MD Work Phone: [facility] [place] Comment on above: Appointment Refill Request Transition Of Care ( Hospital DC 04/04/22, initial outreach) Start: 04-01-2022 Telephone encounter Navin Ackerman MD Work Phone: [facility] [place] Comment on above: [facility] (verbal orders to follow) Start: 03-29-2022 End: 04-04-2022 Evaluation and management of inpatient BROCK PORTILLO Facility:[facility] Start: 03-27-2022 Refill Navin Ackerman MD Work Phone: [facility] [place] Comment on above: Refill Request Start: 03-26-20[address] MD Work Phone: Neurology Comment on above: Nurse from [facility] diaz Start: 03-23-2022 ambulatory Tabatha Chahal RN [facility] Start: 03-23-2022 Follow-up encounter Tabatha Chahal RN Analytical Clerk Management Comment on above: Transition Of Care ( [facility] Hospital Discharge Follow up 03/22/22) Start: 03-19-2022 End: 03-19-2022 Patient encounter procedure Gracy Sears APRN.CNP Work Phone: Neurology Comment on above: Neuropathy associate d with MGUS (HCC) (Primary Dx); Hepatitis C associated neuropathy (HCC); Spinal stenosis of lumbar region with neurogenic claudication; Chronic pain of both knees; Hip pain; Abnormality of gait; Neck pain; Numbness and tingling of both upper extremities Start: 03-17-2022 ambulatory Navin Ackerman MD Work Phone: Internal Medicine [facility] Start: 03-02-2022 Refill Navin Ackerman MD Work Phone: [facility] Comment on above: Prescription Refills Start: 02-26-2022 ambulatory [facility] [place] Comment on above: Population Health Na vigation Outreach ([employer] care gaps) Start: 02-23-2022 End: 02-23-2022 Admission to establishment [facility] [place] 1 Work Phone: [facility] Start: 02-23-2022 End: 02-23-2022 ambulatory [facility] [place] 1 Work Phone: Pre Anesthesia Comment on above: Pre-op testing; Chronic hepatitis C without hepatic coma (HCC); Primary hypertension; MGUS (monoclonal gammopathy of unknown significance); Status post hip replacement, unspecified laterality; Status post replacement of right shoulder joint; Sleeping difficulty; Former smoker Start: 02-23-2022 End: 02-23-2022 Patient encounter status [facility] [place] 1 Work Phone: Pre Anesthesia Start: 02-18-2022 Refill Gracy maravilla APRN.CNP Work Phone: Neurology Comment on above: Refill Request Start: 12-29-2021 End: 12-29-2021 Patient encounter procedure Brock Portillo MD Work Phone: [facility] [place] Comment on above: Spinal stenosis of l umbar region with neurogenic claudication; Abnormality of gait Start: 12-23-2021 End: 12-23-2021 ambulatory UNKNOWN PROVIDER Facility:[facility] Start: 12-22-2021 ambulatory Sanjay Young MD Work Phone: Neurology Start: 12-22-2021 Patient encounter procedure Sanjay Young MD Work Phone: [facility] Start: 09-30-2021 End: 09-30-2021 Subsequent hospital visit by physician [facility] Work Phone: Radiology Comment on above: Pain in joint, multi ple sites [M25.50] Start: 07-04-2021 End: 07-04-2021 Subsequent hospital visit by physician [facility]r [facility] [place] Work Phone: Radiology Comment on above: Hip pain [M25.559] Start: 12-13-2020 End: 12-13-2020 Subsequent hospital visit by physician Xr [facility] [place] Work Phone: Radiology Comment on above: DDD (degenerative di sc disease), lumbar [M51.36] Start: 02-02-2019 Patient encounter procedure BLAS AUGUSTINE Facility:A Procedures Date Procedure Procedure Detail Performing Clinician Start: 02-09-2024 Us transrct prstate vol brachytx plnning spx Dennis Moore MD Work Phone: Start: 01-03-2024 Urnls dip stick/tabl et rgnt auto w/o microscopy Bharathi Wiggins KITCHEN LEAD.TRANSPORTATION DISPATCH MANAGER, DNP Work Phone: Start: 12-31-2023 Us retroperitoneal r eal time w/image complete Abena Beckford KITCHEN LEAD.TRANSPORTATION DISPATCH MANAGER Work Phone: Start: 10-28-2023 INFLUENZA VACCINE, P RSV FREE, AGE 65+ YR, HIGH DOSE, QUADRIVALENT (FLUZONE HIGH-DOSE) Marbella Zaidi PA-C Work Phone: Start: 07-06-2023 Ct abdomen & pelvis w/o contrast material Marbella Zaidi PA-C Work Phone: Start: 06-28-2023 Urnls dip stick/tabl et rgnt auto w/o microscopy Marbella Ignacio Zaidi PA-C Work Phone: Start: 06-28-2023 Culture bacterial quanttative colony count urine Marbella Carlson Dejuan PAUL Work Phone: Start: 06-28-2023 Drug tst prsmv instr mnt chem analyzers pr date Marbella Ignacio Zaidi PA-C Work Phone: Start: 02-16-2023 Urnls dip stick/tabl et rgnt auto w/o microscopy Dany Gomez PA-C Work Phone: Start: 01-08-2023 Lipid 1996 panel - S amilcar or Plasma Joshua Vieira KITCHEN LEAD.TRANSPORTATION DISPATCH MANAGER Work Phone: Start: 11-02-2022 Radex ribs uni w/posteroant ch minimum 3 views Abena Beckford KITCHEN LEAD.TRANSPORTATION DISPATCH MANAGER Work Phone: Start: 08-28-2022 Mri spinal canal cer vical w/o contrast matrl Brock Portillo MD Work Phone: Start: 07-01-2022 Mri brain brain stem w/o w/contrast material Marbella Ignacio Zaidi PA-C Work Phone: Start: 04-09-2022 Radex spine cervical 4 or 5 views Gracy Sears KITCHEN LEAD.TRANSPORTATION DISPATCH MANAGER Work Phone: Start: 03-31-2022 Antibody screen BROCK PORTILLO Comment on above: Order Comment: Speci men Type: BLOOD SPECIMENOrdering Facility: [facility] Address: [address] [place] [address] Performed By: #### T SCR ####[facility] BANKCLIA [id number] [address] [place] Start: 12-29-2021 Adult depression scr eening assessment Gracy Sears KITCHEN LEAD.TRANSPORTATION DISPATCH MANAGER Work Phone: Start: 09-30-2021 Radex hand minimum 3 views Daylin Rock MD Work Phone: Start: 07-04-2021 Radex hips bilateral with pelvis minimum 5 views Navin Singh MD Work Phone: Start: 12-13-2020 Radex spine lumbosac ral 2/3 views Navin Ackerman MD Work Phone: Start: 06-27-2013 Kimberlyn Jacobson KITCHEN LEAD.TRANSPORTATION DISPATCH MANAGER Work Phone: H/O: artificial joint Status pos t replacement of right shoulder joint [facility] [place] 1 Work Phone: Plan of Treatment Date Care Activity Detail Author Start: 01-08-2028 Lipid 1996 panel - Serum or Plasma Lipid Screening [facility] Start: 01-08-2028 Lipid panel Lipid Screening [facility] Start: 01-08-2028 LIPID SCREEN LIPID SCREEN [facility] Start: 07-26-2027 Diabetes Screening Diabetes Screening [facility] Start: 07-10-2027 Diabetes Screening Diabetes Screening [facility] Start: 03-13-2027 Diabetes Screening Diabetes Screening [facility] Start: 01-30-2027 Diabetes Screening Diabetes Screening [facility] Start: 12-28-2026 Diabetes Screening Diabetes Screening [facility] Start: 12-27-2026 Diabetes Screening Diabetes Screening [facility] Start: 06-28-2026 DIABETES SCREEN DIABETES SCREEN [facility] Start: 06-28-2026 Diabetes Screening Diabetes Screening [facility] Start: 04-30-2026 DIABETES SCREEN DIABETES SCREEN [facility] Start: 04-05-2026 DIABETES SCREEN DIABETES SCREEN [facility] Start: 03-31-2026 DIABETES SCREEN DIABETES SCREEN [facility] Start: 01-14-2026 DIABETES SCREEN DIABETES SCREEN [facility] Start: 01-11-2026 DIABETES SCREEN DIABETES SCREEN [facility] Start: 11-15-2025 DIABETES SCREEN DIABETES SCREEN [facility] Start: 11-11-2025 DIABETES SCREEN DIABETES SCREEN [facility] Start: 09-12-2025 BP Controlled (<130/80) BP Controlled (<130/80) [facility] Start: 09-06-2025 BP Controlled (<130/80) BP Controlled (<130/80) [facility] Start: 08-30-2025 BP Controlled (<130/80) BP Controlled (<130/80) [facility] Start: 08-24-2025 BP Controlled (<130/80) BP Controlled (<130/80) [facility] Start: 08-23-2025 BP Controlled (<130/80) BP Controlled (<130/80) [facility] Start: 08-22-2025 BP Controlled (<130/80) BP Controlled (<130/80) [facility] Start: 08-16-2025 BP Controlled (<130/80) BP Controlled (<130/80) [facility] Start: 08-15-2025 BP Controlled (<130/80) BP Controlled (<130/80) [facility] Start: 08-11-2025 BP Controlled (<130/80) BP Controlled (<130/80) [facility] Start: 08-08-2025 BP Controlled (<130/80) BP Controlled (<130/80) [facility] Start: 08-07-2025 BP Controlled (<130/80) BP Controlled (<130/80) [facility] Start: 08-04-2025 BP Controlled (<130/80) BP Controlled (<130/80) [facility] Start: 08-01-2025 BP Controlled (<130/80) BP Controlled (<130/80) [facility] Start: 07-31-2025 BP Controlled (<130/80) BP Controlled (<130/80) [facility] Start: 07-29-2025 BP Controlled (<130/80) BP Controlled (<130/80) [facility] Start: 07-28-2025 BP Controlled (<130/80) BP Controlled (<130/80) [facility] Start: 07-26-2025 Complete blood count Hemoglobin/Hematocrit [facility] Start: 07-26-2025 Creatinine measurement Serum Creatinine [facility] Start: 07-10-2025 Annual PCP Team Chronic Disease Visit Annual PCP Team Chronic Disease Visit [facility] Start: 07-10-2025 BP Controlled (<130/80) BP Controlled (<130/80) [facility] Start: 07-10-2025 Complete blood count Hemoglobin/Hematocrit [facility] Start: 07-10-2025 Creatinine measurement Serum Creatinine [facility] Start: 05-05-2025 DIABETES SCREEN DIABETES SCREEN [facility] Start: 04-10-2025 Annual PCP Team Chronic Disease Visit Annual PCP Team Chronic Disease Visit [facility] Start: 04-10-2025 BP Controlled (<130/80) BP Controlled (<130/80) [facility] Start: 03-29-2025 DIABETES SCREEN DIABETES SCREEN [facility] Start: 03-22-2025 DIABETES SCREEN DIABETES SCREEN [facility] Start: 03-13-2025 BP Controlled (<130/80) BP Controlled (<130/80) [facility] Start: 03-13-2025 Creatinine measurement Serum Creatinine [facility] Start: 02-23-2025 DIABETES SCREEN DIABETES SCREEN [facility] Start: 02-08-2025 BP Controlled (<130/80) BP Controlled (<130/80) [facility] Start: 02-02-2025 Annual PCP Team Chronic Disease Visit Annual PCP Team Chronic Disease Visit [facility] Start: 02-02-2025 BP Controlled (<130/80) BP Controlled (<130/80) [facility] Start: 01-30-2025 BP Controlled (<130/80) BP Controlled (<130/80) [facility] Start: 01-30-2025 Complete blood count Hemoglobin/Hematocrit [facility] Start: 01-30-2025 Creatinine measurement Serum Creatinine [facility] Start: 01-03-2025 Annual PCP Team Chronic Disease Visit Annual PCP Team Chronic Disease Visit [facility] Start: 01-03-2025 Screening for malignant neoplasm of colon Fecal Occult Blood [facility] Start: 12-28-2024 Annual PCP Team Chronic Disease Visit Annual PCP Team Chronic Disease Visit [facility] Start: 12-28-2024 Complete blood count Hemoglobin/Hematocrit [facility] Start: 12-28-2024 Creatinine measurement Serum Creatinine [facility] Start: 12-08-2024 Annual PCP Team Chronic Disease Visit Annual PCP Team Chronic Disease Visit [facility] Start: 11-04-2024 DIABETES SCREEN DIABETES SCREEN [facility] Start: 10-28-2024 Annual PCP Team Chronic Disease Visit Annual PCP Team Chronic Disease Visit [facility] Start: 10-28-2024 BP Controlled (<130/80) BP Controlled (<130/80) [facility] Start: 10-28-2024 Covid-19 Vaccine (#1) Covid-19 Vaccine (#1) [facility] Comment on above: Postponed from 03/06/1951 (Declined at t his time) Postponed from 09/05 (Declined at this time) Start: 10-28-2024 Covid-19 Vaccine ( season) Covid-19 Vaccine ( season) [facility] Comment on above: Postponed from 07/23/2023 (Declined at t his time) Start: 10-28-2024 Shingrix Vaccine (1 of 2) Shingrix Vaccine (1 of 2) [facility] Comment on above: Postponed from 1999 (Insurance Cov erage) Postponed from 09/05 (Insurance Coverage) Start: 10-28-2024 Urine microalbumin profile DTaP,Tdap,Td Vaccine (1 - Tdap) [facility] Comment on above: Postponed from 1968 (Insurance Cov erage) Start: 10-09-2024 End: 10-09-2024 Patient encounter procedure [facility] [place] Comment on above: 3 month follow up (GB patient) 3 month follow up Start: 09-28-2024 BP Controlled (<130/80) BP Controlled (<130/80) [facility] Start: 09-19-2024 End: 09-19-2024 Patient encounter procedure 09/19/2024 3:30 PM EDT Office Visit Urology [address] [place], [place] [id number] Dany Gomez PA-C [address] [place] [address] pvr, cath removed in am Urology Comment on above: pvr, cath removed in am Start: 09-19-2024 End: 09-19-2024 ambulatory [facility] Comment on above: Age-related physical debility [R54] $40 Age-related phys ical debility [R54] Start: 09-19-2024 End: 09-19-2024 Nursing evaluation of patient and report 09/19/2024 8:40 AM EDT Nurse Visit Urology [address] [place] [address] Wstr, Nurse U[facility] [address] [place] [address] cath removal, per [facility] Comment on above: cath removal, per [facility] Start: 09-14-2024 End: 09-14-2024 Patient encounter procedure 09/14/2024 1:45 PM EDT Office Visit Urology [address] [place] [address] Ar Akins MD [address] [place], [place] [id number] discuss aqua ablation Urology Comment on above: discuss aqua ablation Start: 09-11-2024 End: 09-11-2024 Patient encounter procedure [facility] Comment on above: Uroflow, Aquablation postop PVR - Uroflow, Aquab lation postop Start: 2024 RSV Vaccine (1 - 1-dose 75+ series) RSV Vaccine (1 - 1-dose 75+ series) [facility] Start: 08-22-2024 End: 08-22-2024 Patient encounter procedure 08/22/2024 2:00 PM EDT Office Visit Urology [address] [place] [address] Dany Gomez PA-C [address] [place], [place] [id number] Uroflow, 2 week pvr Urology Comment on above: Uroflow, 2 week pvr Start: 08-15-2024 End: 08-15-2024 Nursing evaluation of patient and report 08/15/2024 3:40 PM EDT Nurse Visit Urology [address] [place], [place] [id number] Wstr, Nurse Urol [facility] [address] [place] [address] hancock catheter change Urology Comment on above: hancock catheter change Start: 08-15-2024 End: 08-15-2024 Patient encounter procedure 08/15/2024 9:30 AM EDT Office Visit [facility] [address] [place] [address] Smitha Gutierrez APRN.TRANSPORTATION DISPATCH MANAGER [address] [place] [address] Uroflow, 2 week pvr [facility] Comment on above: Uroflow, 2 week pvr Start: 08-03-2024 BP Controlled (<130/80) BP Controlled (<130/80) [facility] [facility] Start: 07-31-2024 End: 07-31-2024 Nursing evaluation of patient and report [facility] Comment on above: cath removal pvr, cath removed in am Start: 07-29-2024 ANNUAL PCP TEAM CHRONIC DISEASE VISIT ANNUAL PCP TEAM CHRONIC DISEASE VISIT [facility] Start: 07-29-2024 BP CONTROLLED (<130/80) BP CONTROLLED (<130/80) [facility] Start: 07-25-2024 End: 07-25-2024 Admission to same day surgery center 07/25/2024 2:00 PM EDT - 07/25/2024 4:00 PM EDT Surgery [place] [facility] OR [address] [facility] [place] [address] Vicente Quintana MD [address] [place] [id number] TRANSURETHRAL WATERJET ABLATION OF PROSTATE INCLUDING CONTROL [...] EDT Hospital Encounter [place] [facility] OR [address] [facility] [place] [address] Vicente Quintana MD [address] [place] [id number] BPH with obstruction/lower urinary tract symptoms [N40.1, [...] Start: 07-23-2024 Influenza vaccination Influenza Vaccine (#1) [facility] Start: 07-12-2024 End: 10-11-2024 Goxx-1-Sgxuyzsogbtgy [Mass/volume] in Serum or Plasma B2 MICROGLOBULIN Lab Routine MGUS (monoclonal gammopathy of unknown significance) Waldenstrom macroglobulinemia (HCC) Expected: 07/12/2024, Expires: 10/11/2024 [facility] Comment on above: Expected: 07/12/2024, Expires: Start: 07-12-2024 End: 10-11-2024 CBC W Auto Differential panel - Blood COMPLETE BLOOD COUNT AND DIFFERENTIAL Lab Routine MGUS (monoclonal gammopathy of unknown significance) Waldenstrom macroglobulinemia (HCC) Expected: 07/12/2024, Expires: 10/11/2024 [facility] Comment on above: Expected: 07/12/2024, Expires: Start: 07-12-2024 End: 10-11-2024 Comprehensive metabolic 2000 panel - Serum or Plasma COMPREHENSIVE METABOLIC PANEL Lab Routine MGUS (monoclonal gammopathy of unknown significance) Waldenstrom macroglobulinemia (HCC) Expected: 07/12/2024, Expires: 10/11/2024 [facility] Comment on above: Expected: 07/12/2024, Expires: 4 Start: 07-12-2024 End: 10-11-2024 FREE LIGHT CHAINS, QUANTITATIVE, URINE FREE LIGHT CHAINS, QUANTITATIVE, URINE Lab Routine MGUS (monoclonal gammopathy of unknown significance) Waldenstrom macroglobulinemia (HCC) Expected: 07/12/2024, Expires: 10/11/2024 [facility] Comment on above: Expected: 07/12/2024, Expires: Start: 07-12-2024 End: 10-11-2024 IMMUNOGLOBULINS,IGG,IGA,IG M IMMUNOGLOBULINS,IGG,IGA,I GM Lab Routine MGUS (monoclonal gammopathy of unknown significance) Waldenstrom macroglobulinemia (HCC) Expected: 07/12/2024, Expires: 10/11/2024 [facility] Comment on above: Expected: 07/12/2024, Expires: 4 Start: 07-12-2024 End: 10-11-2024 Lactate dehydrogenase [Enzymatic activity/volume] in Serum or Plasma LACTATE DEHYDROGENASE Lab Routine MGUS (monoclonal gammopathy of unknown significance) Waldenstrom macroglobulinemia (HCC) Expected: 07/12/2024, Expires: 10/11/2024 [facility] Comment on above: Expected: 07/12/2024, Expires: 4 Start: 07-12-2024 End: 10-11-2024 MONOCLONAL PROTEIN, SERUM (BLOOD) MONOCLONAL PROTEIN, SERUM (BLOOD) Lab Routine MGUS (monoclonal gammopathy of unknown significance) Waldenstrom macroglobulinemia (HCC) Expected: 07/12/2024, Expires: 10/11/2024 [facility] Comment on above: Expected: 07/12/2024, Expires: 4 Start: 07-12-2024 End: 10-11-2024 PROTEIN ELECTROPHORESIS SERUM W/INTERP PROTEIN ELECTROPHORESIS SERUM W/INTERP Lab Routine MGUS (monoclonal gammopathy of unknown significance) Waldenstrom macroglobulinemia (HCC) Expected: 07/12/2024, Expires: 10/11/2024 [facility] Comment on above: Expected: 07/12/2024, Expires: Start: 07-10-2024 End: 07-10-2024 Patient encounter procedure Family [facility] Comment on above: 3 month follow up Start: 07-10-2024 End: 07-10-2024 Patient encounter procedure [facility] Comment on above: discuss aqua ablation cysto trus, pt has c ath - Uroflow - Keflex Start: 07-04-2024 End: 07-04-2024 Nursing evaluation of patient and report 07/04/2024 1:40 PM EDT Nurse Visit Urology [address] [place] [address] Wstr, Nurse Urol [facility] [address] [place] [address] hancock catheter change Urology Comment on above: hancock catheter change Start: 06-28-2024 ANNUAL PCP TEAM CHRONIC DISEASE VISIT ANNUAL PCP TEAM CHRONIC DISEASE VISIT [facility] Start: 05-23-2024 End: 05-23-2024 Nursing evaluation of patient and report 05/23/2024 1:40 PM EDT Nurse Visit Urology [address] [place] [address] Wstr, Nurse Urol [facility] [address] [place] [address] Hancock catheter change- [facility] Comment on above: Hancock catheter change- 20 [facility] Start: 05-08-2024 End: 05-08-2024 Patient encounter procedure 05/08/2024 2:40 PM EDT Office Visit Family [facility] [address] [place] [address] Marbella Zaidi PA-C [address] [place] [address] 3 month follow up Family [facility] Comment on above: 3 month follow up Start: 05-07-2024 BP CONTROLLED (<130/80) BP CONTROLLED (<130/80) [facility] in Start: 05-05-2024 End: 08-04-2024 CBC W Auto Differential panel - Blood CBC + DIFF Lab Routine Acute renal failure superimposed on stage 3a chronic kidney disease, unspecified acute renal failure type (HCC) Frailty Expected: 05/05/2024, Expires: 08/04/2024 [facility] Work Phone: Comment on above: Expected: 05/05/2024, Expires: Start: 05-05-2024 End: 08-04-2024 Comprehensive metabolic 2000 panel - Serum or Plasma COMP METABOLIC PANEL Lab Routine Acute renal failure superimposed on stage 3a chronic kidney disease, unspecified acute renal failure type (HCC) Frailty Expected: 05/05/2024, Expires: 08/04/2024 [facility] Work Phone: Comment on above: Expected: 05/05/2024, Expires: Start: 05-01-2024 End: 05-01-2024 Patient encounter procedure Urology Comment on above: PATIENT HAS HANCOCK NEEDS SEEN FOR [facility] 02/20 NEEDS ORDER FOR PERFORMANCE IMPROVEMENT CONSULTANT TO CHANGE AT HOME PATIENT HAS HANCOCK NE EDS SEEN FOR [facility] 03/10/2024 NEEDS ORDER FOR PERFORMANCE IMPROVEMENT CONSULTANT TO CHANGE AT HOME. ALSO ISSUES WITH SEDIMENT AND HANCOCK PLUGGING UP Start: 04-28-2024 End: 04-28-2024 Patient encounter procedure 04/28/2024 3:30 PM EDT Office Visit Vasculary Surgery [address] [place] [address] Dizziness [R42] [facility] Comment on above: Dizziness [R42] Start: 04-19-2024 End: 04-19-2024 Patient encounter procedure 04/19/2024 10:40 AM EDT Office Visit Urology [address] [address] Saskia Sears, KITCHEN LEAD.TRANSPORTATION DISPATCH MANAGER [address] [place] [address] PROBLEM WITH HANCOCK PLUGGING. ALSO NEEDING HH ORDERS. SEE TELEPHONE ENCOUNTER Urology Comment on above: PROBLEM WITH HANCOCK PLUGGING. ALSO NEEDIN G HH ORDERS. SEE TELEPHONE ENCOUNTER Start: 04-10-2024 End: 04-10-2024 Patient encounter procedure 04/10/2024 2:00 PM EDT Office Visit Family Medicine [place] [address] [place] [address] Marbella Zaidi PA-C [address] [place] [address] Hosptital follow up [facility] Comment on above: Hosptital follow up Start: 04-04-2024 End: 07-04-2024 Bacteria identified in Urine by Culture URINE CULTURE Microbiology Routine Abnormal urine Expected: 04/04/2024, Expires: 07/04/2024 [facility] Work Phone: Comment on above: Expected: 04/04/2024, Expires: Start: 04-04-2024 End: 07-04-2024 URINALYSIS, REFLEX MICROSCOPIC URINALYSIS, REFLEX MICROSCOPIC Lab Routine Abnormal urine Expected: 04/04/2024, Expires: 07/04/2024 [facility] Comment on above: Expected: 04/04/2024, Expires: Start: 03-13-2024 End: 06-12-2024 ACETYLCHOLINE RECEPTOR MODULATING ANTIBODY [facility] Work Phone: Comment on above: Expected: 03/13/2024, Expires: Start: 02-12-2024 BP CONTROLLED (<130/80) BP CONTROLLED (<130/80) [facility] Start: 01-28-2024 End: 04-28-2024 Comprehensive metabolic 2000 panel - Serum or Plasma COMP METABOLIC PANEL Lab Routine Hypogonadism in male Primary hypertension Expected: 01/28/2024, Expires: 04/28/2024 [facility] Work Phone: Comment on above: Expected: 01/28/2024, Expires: Start: 01-04-2024 End: 04-04-2024 Basic metabolic 2000 panel - Serum or Plasma BASIC METABOLIC PNL Lab Routine Hydronephrosis, unspecified hydronephrosis type Urinary retention MUNA (acute kidney injury) (HCC) Expected: 01/04/2024, Expires: 04/04/2024 [facility] Work Phone: Comment on above: Expected: 01/04/2024, Expires: Start: 01-04-2024 End: 04-04-2024 CBC W Auto Differential panel - Blood CBC + DIFF Lab Routine Hydronephrosis, unspecified hydronephrosis type Urinary retention MUNA (acute kidney injury) (HCC) Expected: 01/04/2024, Expires: 04/04/2024 [facility] Work Phone: Comment on above: Expected: 01/04/2024, Expires: Start: 01-04-2024 Screening for malignant neoplasm of colon Colorectal Cancer Screening [facility] Start: 12-31-2023 End: 03-31-2024 Basic metabolic 2000 panel - Serum or Plasma BASIC METABOLIC PNL Lab Routine Urinary retention Hydronephrosis, unspecified hydronephrosis type Expected: 12/31/2023, Expires: 03/31/2024 [facility] Work Phone: Comment on above: Expected: 12/31/2023, Expires: Start: 11-22-2023 Advance Directive Discussion Advance Directive Discussion [facility] Start: 11-22-2023 Behavioral Health Screening Behavioral Health Screening [facility] Start: 11-22-2023 Depression Assessment Depression Assessment [facility] Start: 11-19-2023 ANNUAL PCP TEAM CHRONIC DISEASE VISIT ANNUAL PCP TEAM CHRONIC DISEASE VISIT [facility] Start: 11-02-2023 ANNUAL PCP TEAM CHRONIC DISEASE VISIT ANNUAL PCP TEAM CHRONIC DISEASE VISIT [facility] Start: 10-29-2023 End: 01-28-2024 CBC W Auto Differential panel - Blood CBC + DIFF Lab Routine Primary hypertension Medication management Expected: 10/29/2023, Expires: 01/28/2024 [facility] Work Phone: Comment on above: Expected: 10/29/2023, Expires: 4 Start: 10-29-2023 End: 01-28-2024 Estradiol (E2) [Mass/volume] in Serum or Plasma ESTRADIOL-17B BLD Lab Routine Hypogonadism in male Medication management Expected: 10/29/2023, Expires: 01/28/2024 [facility] Work Phone: Comment on above: Expected: 10/29/2023, Expires: Start: 10-29-2023 End: 01-28-2024 Follitropin [Units/volume] in Serum or Plasma FSH BLD Lab Routine Hypogonadism in male Medication management Expected: 10/29/2023, Expires: 01/28/2024 [facility] Work Phone: Comment on above: Expected: 10/29/2023, Expires: Start: 10-29-2023 End: 01-28-2024 TESTOSTERONE, FREE AND TOTAL TESTOSTERONE, FREE AND TOTAL Lab Routine Hypogonadism in male Expected: 10/29/2023, Expires: 01/28/2024 [facility] Work Phone: Comment on above: Expected: 10/29/2023, Expires: Start: 09-10-2023 ANNUAL PCP TEAM CHRONIC DISEASE VISIT ANNUAL PCP TEAM CHRONIC DISEASE VISIT [facility] Start: 09-10-2023 COVID-19 VACCINE (#1) COVID-19 VACCINE (#1) [facility] Comment on above: Postponed from 03/06/1951 (Declined at t his time) Start: 07-23-2023 Influenza vaccination [facility] Start: 06-28-2023 End: 08-28-2023 PAIN PANEL, UR QUANT [facility] Work Phone: Comment on above: Expected: 06/28/2023, Expires: Start: 06-27-2023 Colonoscopy COLONOSCOPY [facility] Start: 06-27-2023 COLORECTAL CANCER SCREENING COLORECTAL CANCER SCREENING [facility] Start: 06-27-2023 Screening for malignant neoplasm of colon [facility] Start: 06-09-2023 ANNUAL PCP TEAM CHRONIC DISEASE VISIT ANNUAL PCP TEAM CHRONIC DISEASE VISIT [facility] Start: 07-19-2023 SHINGRIX VACCINE (1 of 2) SHINGRIX VACCINE (1 of 2) [facility] Comment on above: Postponed from 1999 (Insurance Cov erage) Start: 06-09-2023 Urine microalbumin profile DTAP,TDAP,TD (1 - Tdap) [facility] Comment on above: Postponed from 1968 (Insurance Cov erage) Start: 05-21-2023 Influenza vaccination INFLUENZA (#1) [facility] Comment on above: Postponed from 07/23/2022 (Declined at t his time) Start: 05-12-2023 ANNUAL PCP TEAM CHRONIC DISEASE VISIT ANNUAL PCP TEAM CHRONIC DISEASE VISIT [facility] Start: 05-12-2023 BP CONTROLLED (<130/80) BP CONTROLLED (<130/80) [facility] Start: 05-07-2023 End: 07-07-2023 CBC W Auto Differential panel - Blood CBC + DIFF Lab Routine Anemia, unspecified type Expected: 05/07/2023, Expires: 07/07/2023 [facility] Work Phone: Comment on above: Expected: 05/07/2023, Expires: 3 Start: 05-07-2023 End: 07-07-2023 Ferritin [Mass/volume] in Serum or Plasma FERRITIN BLD Lab Routine Anemia, unspecified type Expected: 05/07/2023, Expires: 07/07/2023 [facility] Work Phone: Comment on above: Expected: 05/07/2023, Expires: 3 Start: 05-07-2023 End: 07-07-2023 Iron and Iron binding capacity panel - Serum or Plasma IRON + TIBC Lab Routine Anemia, unspecified type Expected: 05/07/2023, Expires: 07/07/2023 [facility] Work Phone: Comment on above: Expected: 05/07/2023, Expires: 3 Start: 05-07-2023 End: 07-07-2023 RETIC COUNT RETIC COUNT Lab Routine Anemia, unspecified type Expected: 05/07/2023, Expires: 07/07/2023 [facility] Work Phone: Comment on above: Expected: 05/07/2023, Expires: 3 Start: 04-30-2023 End: 06-30-2023 Kxfz-9-Nfytwskuaboci [Mass/volume] in Serum or Plasma B2 MICROGLOBULIN B Lab Routine MGUS (monoclonal gammopathy of unknown significance) Expected: 04/30/2023, Expires: 06/30/2023 [facility] Work Phone: Comment on above: Expected: 04/30/2023, Expires: 3 Start: 04-30-2023 End: 06-30-2023 CBC W Auto Differential panel - Blood CBC + DIFF Lab STAT MGUS (monoclonal gammopathy of unknown significance) Expected: 04/30/2023, Expires: 06/30/2023 [facility] Work Phone: Comment on above: Expected: 04/30/2023, Expires: Start: 04-30-2023 End: 06-30-2023 Comprehensive metabolic 2000 panel - Serum or Plasma COMP METABOLIC PANEL Lab STAT MGUS (monoclonal gammopathy of unknown significance) Expected: 04/30/2023, Expires: 06/30/2023 [facility] Work Phone: Comment on above: Expected: 04/30/2023, Expires: 3 Start: 04-30-2023 End: 06-30-2023 IMMUNOGLOBULINS PILY IMMUNOGLOBULINS PILY Lab Routine MGUS (monoclonal gammopathy of unknown significance) Expected: 04/30/2023, Expires: 06/30/2023 [facility] Work Phone: Comment on above: Expected: 04/30/2023, Expires: Start: 04-30-2023 End: 06-30-2023 KAPPA/JARAMILLO,FREE,SER KAPPA/JARAMILLO,FREE,SER Lab Routine MGUS (monoclonal gammopathy of unknown significance) Expected: 04/30/2023, Expires: 06/30/2023 [facility] Work Phone: Comment on above: Expected: 04/30/2023, Expires: 3 Start: 04-30-2023 End: 06-30-2023 Lactate dehydrogenase [Enzymatic activity/volume] in Serum or Plasma LD LACTATE DEHYDRO Lab Routine MGUS (monoclonal gammopathy of unknown significance) Expected: 04/30/2023, Expires: 06/30/2023 [facility] Work Phone: Comment on above: Expected: 04/30/2023, Expires: Start: 04-30-2023 End: 06-30-2023 MONOCLONAL PROT UR W/INTERP MONOCLONAL PROT UR W/INTERP Lab Routine MGUS (monoclonal gammopathy of unknown significance) Expected: 04/30/2023, Expires: 06/30/2023 [facility] Work Phone: Comment on above: Expected: 04/30/2023, Expires: Start: 04-30-2023 End: 06-30-2023 MONOCLONAL PROTEIN, SERUM (BLOOD) MONOCLONAL PROTEIN, SERUM (BLOOD) Lab Routine MGUS (monoclonal gammopathy of unknown significance) Expected: 04/30/2023, Expires: 06/30/2023 [facility] Work Phone: Comment on above: Expected: 04/30/2023, Expires: Start: 04-30-2023 End: 06-30-2023 Protein [Mass/volume] in Serum or Plasma PROTEIN TOTAL BLD Lab Routine MGUS (monoclonal gammopathy of unknown significance) Expected: 04/30/2023, Expires: 06/30/2023 [facility] Work Phone: Comment on above: Expected: 04/30/2023, Expires: 3 Start: 04-30-2023 End: 06-30-2023 PROTEIN ELECT RND UR W/INTERP PROTEIN ELECT RND UR W/INTERP Lab Routine MGUS (monoclonal gammopathy of unknown significance) Expected: 04/30/2023, Expires: 06/30/2023 [facility] Work Phone: Comment on above: Expected: 04/30/2023, Expires: 3 Start: 04-30-2023 End: 06-30-2023 PROTEIN ELECTROPHORESIS SERUM W/INTERP PROTEIN ELECTROPHORESIS SERUM W/INTERP Lab Routine MGUS (monoclonal gammopathy of unknown significance) Expected: 04/30/2023, Expires: 06/30/2023 [facility] Work Phone: Comment on above: Expected: 04/30/2023, Expires: 3 Start: 04-16-2023 BP CONTROLLED (<130/80) BP CONTROLLED (<130/80) [facility] in Start: 03-19-2023 BP CONTROLLED (<130/80) BP CONTROLLED (<130/80) [facility] Start: 01-28-2023 LIPID SCREEN LIPID SCREEN [facility] Start: 12-29-2022 Adult depression screening assessment DEPRESSION SCREENING [facility] Start: 11-22-2022 ADVANCE DIRECTIVE DISCUSSION ADVANCE DIRECTIVE DISCUSSION [facility] Start: 11-22-2022 DEPRESSION ASSESSMENT DEPRESSION ASSESSMENT [facility] Start: 09-11-2022 End: 11-11-2022 TESTOSTERONE, FREE AND TOTAL [facility] Work Phone: Comment on above: Expected: 09/11/2022, Expires: 2 Start: 09-10-2022 End: 11-10-2022 Estradiol (E2) [Mass/volume] in Serum or Plasma ESTRADIOL-17B BLD Lab Routine Hypogonadism in male Expected: 09/10/2022, Expires: 11/10/2022 [facility] Work Phone: Comment on above: Expected: 09/10/2022, Expires: 2 Start: 09-10-2022 End: 11-10-2022 Follitropin [Units/volume] in Serum or Plasma FSH BLD Lab Routine Hypogonadism in male Expected: 09/10/2022, Expires: 11/10/2022 [facility] Work Phone: Comment on above: Expected: 09/10/2022, Expires: 2 Start: 09-10-2022 End: 11-10-2022 Lutropin [Units/volume] in Serum or Plasma LUTEINIZING HORMONE Lab Routine Hypogonadism in male Expected: 09/10/2022, Expires: 11/10/2022 [facility] Work Phone: Comment on above: Expected: 09/10/2022, Expires: 2 Start: 09-10-2022 End: 11-10-2022 TESTOSTERONE, FREE AND TOTAL TESTOSTERONE, FREE AND TOTAL Lab Routine Hypogonadism in male Expected: 09/10/2022, Expires: 11/10/2022 [facility] Work Phone: Comment on above: Expected: 09/10/2022, Expires: 2 Start: 07-23-2022 Influenza vaccination [facility] Start: 06-11-2022 ANNUAL PCP TEAM CHRONIC DISEASE VISIT ANNUAL PCP TEAM CHRONIC DISEASE VISIT [facility] Start: 05-21-2022 Influenza vaccination INFLUENZA (#1) [facility] Comment on above: Postponed from 07/23/2021 (Declined at t his time) Start: 05-05-2022 End: 07-05-2022 Ywnk-6-Mrnishksevqee [Mass/volume] in Serum or Plasma B2 MICROGLOBULIN B Lab Routine MGUS (monoclonal gammopathy of unknown significance) Expected: 05/05/2022, Expires: 07/05/2022 [facility] Work Phone: Comment on above: Expected: 05/05/2022, Expires: 2 Start: 05-05-2022 End: 07-05-2022 CBC W Auto Differential panel - Blood CBC + DIFF Lab STAT MGUS (monoclonal gammopathy of unknown significance) Expected: 05/05/2022, Expires: 07/05/2022 [facility] Work Phone: Comment on above: Expected: 05/05/2022, Expires: 2 Start: 05-05-2022 End: 07-05-2022 Comprehensive metabolic 2000 panel - Serum or Plasma COMP METABOLIC PANEL Lab Routine MGUS (monoclonal gammopathy of unknown significance) Expected: 05/05/2022, Expires: 07/05/2022 [facility] Work Phone: Comment on above: Expected: 05/05/2022, Expires: 2 Start: 05-05-2022 End: 07-05-2022 KAPPA/JARAMILLO,FREE,SER KAPPA/JARAMILLO,FREE,SER Lab Routine MGUS (monoclonal gammopathy of unknown significance) Expected: 05/05/2022, Expires: 07/05/2022 [facility] Work Phone: Comment on above: Expected: 05/05/2022, Expires: 2 Start: 05-05-2022 End: 07-05-2022 MONOCLONAL PROT UR W/INTERP MONOCLONAL PROT UR W/INTERP Lab Routine MGUS (monoclonal gammopathy of unknown significance) Expected: 05/05/2022, Expires: 07/05/2022 [facility] Work Phone: Comment on above: Expected: 05/05/2022, Expires: 2 Start: 05-05-2022 End: 07-05-2022 MONOCLONAL PROTEIN, SERUM (BLOOD) MONOCLONAL PROTEIN, SERUM (BLOOD) Lab Routine MGUS (monoclonal gammopathy of unknown significance) Expected: 05/05/2022, Expires: 07/05/2022 [facility] Work Phone: Comment on above: Expected: 05/05/2022, Expires: 2 Start: 05-05-2022 End: 07-05-2022 PROTEIN ELECT RND UR W/INTERP PROTEIN ELECT RND UR W/INTERP Lab Routine MGUS (monoclonal gammopathy of unknown significance) Expected: 05/05/2022, Expires: 07/05/2022 [facility] Work Phone: Comment on above: Expected: 05/05/2022, Expires: 2 Start: 05-05-2022 End: 07-05-2022 PROTEIN ELECTROPHORESIS SERUM W/INTERP PROTEIN ELECTROPHORESIS SERUM W/INTERP Lab Routine MGUS (monoclonal gammopathy of unknown significance) Expected: 05/05/2022, Expires: 07/05/2022 [facility] Work Phone: Comment on above: Expected: 05/05/2022, Expires: 2 Start: 03-17-2022 End: 05-17-2022 Hemoglobin A1c/Hemoglobin.total in Blood HGB A1C Lab Routine Impaired fasting blood sugar Expected: 03/17/2022, Expires: 05/17/2022 [facility] Work Phone: Comment on above: Expected: 03/17/2022, Expires: 2 Start: 03-17-2022 End: 05-17-2022 SCHEDULE LAB TESTING SCHEDULE LAB TESTING Lab Routine Expected: 03/17/2022, Expires: 05/17/2022 [facility] Work Phone: Comment on above: Expected: 03/17/2022, Expires: 2 Start: 02-23-2022 End: 04-25-2022 TYPE AND SCREEN,30 DAY [facility] Work Phone: Comment on above: Expected: 02/23/2022, Expires: 2 Start: 11-22-2021 ADVANCE DIRECTIVE DISCUSSION ADVANCE DIRECTIVE DISCUSSION [facility] Start: 11-22-2021 DEPRESSION ASSESSMENT DEPRESSION ASSESSMENT [facility] Start: 09-19-2020 FECAL OCCULT BLOOD FECAL OCCULT BLOOD [facility] Start: 09-19-2020 Screening for malignant neoplasm of colon Fecal Occult Blood [facility] Start: 2009 RSV Vaccine (1 - 1-dose 60+ series) RSV Vaccine (1 - 1-dose 60+ series) [facility] Start: 2009 RSV Vaccine (1 - Risk 60-74 years 1-dose series) RSV Vaccine (1 - Risk 60-74 years 1-dose series) [facility] Start: 1999 SHINGRIX VACCINE (1 of 2) SHINGRIX VACCINE (1 of 2) [facility] Start: 1994 COLOGUARD (FIT-DNA) COLOGUARD (FIT-DNA) [facility] Start: [address] COLONOGRAPHY [facility] Start: 1994 Screening for malignant neoplasm of colon [facility] Start: 1994 SIGMOIDOSCOPY SIGMOIDOSCOPY [facility] Start: 1968 HEPATITIS A (1 of 2 - Risk 2-dose series) HEPATITIS A (1 of 2 - Risk 2-dose series) [facility] Start: 1968 Hepatitis A Vaccine (1 of 2 - Risk 2-dose series) Hepatitis A Vaccine (1 of 2 - Risk 2-dose series) [facility] Start: 1968 Urine microalbumin profile [facility] Start: 1967 Anxiety Screening Anxiety Screening [facility] Start: 1967 BP CONTROLLED (<130/80) BP CONTROLLED (<130/80) [facility] [facility] Start: 1967 Depression Screening Depression Screening [facility] Start: 1954 COVID-19 VACCINE (#1) COVID-19 VACCINE (#1) [facility] Start: 1954 COVID-19 VACCINE (1) COVID-19 VACCINE (1) [facility] Start: 1951 HEPATITIS A (1 of 2 - Risk 2-dose series) HEPATITIS A (1 of 2 - Risk 2-dose series) [facility] Start: 03-06-1951 COVID-19 VACCINE (#1) COVID-19 VACCINE (#1) [facility] Bacteria identified in Urine by Culture URINE CULTURE Microbiology Routine Dysuria 02/16/2023 3:56 PM EDT [facility] Work Phone: Bacteria identified in Urine by Culture URINE CULTURE Microbiology Routine Urinary frequency 09/28/2023 6:22 PM EST [facility] Work Phone: Bacteria identified in Urine by Culture URINE CULTURE Microbiology Routine Urine retention Ordered: 09/11/2024 [facility] Work Phone: Comment on above: Ordered: 09/11/2024 End: 07-30-2024 Ct abdomen & pelvis w/o contrast material CT FLANK WO IVCON Radiology Routine Right flank pain Microscopic hematuria 1 Occurrences starting 07/01/2023 until 07/30/2024 [facility] Work Phone: Comment on above: 1 Occurrences starting 07/01/2023 until 07/30/2024 CYSTO/TRUS ONLY CYSTO/TRUS ONLY Procedures Routine 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 Overflow incontinence of urine Urinary retention Ordered: 01/31/2024 [facility] Work Phone: Comment on above: Ordered: 01/31/2024 End: 04-04-2023 ECG COMPLETE ECG COMPLETE ECG Routine Pre-op testing 1 Occurrences starting 02/23/2022 until 02/23/2023 [facility] Work Phone: Comment on above: 1 Occurrences starting 02/23/2022 until 02/23/2023 End: 01-30-2025 HANCOCK CHANGE HANCOCK CHANGE Procedures Routine 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 Overflow incontinence of urine Urinary retention 99 Occurrences starting 01/31/2024 until 01/30/2025 [facility] Work Phone: Comment on above: 99 Occurrences starting 01/31/2024 until 01/30/2025 End: 12-05-2023 Mri brain brain stem w/o w/contrast material MRI PITUITARY WO/W IVCON Radiology Routine Nonintractable headache, unspecified chronicity pattern, unspecified headache type 1 Occurrences starting 11/05/2022 until 12/05/2023 [facility] Work Phone: Comment on above: 1 Occurrences starting 11/05/2022 until 12/05/2023 End: 09-09-2023 Mri spinal canal cervical w/o contrast matrl MRI CERVICAL SPINE WO IVCON Radiology Routine Spinal stenosis of cervical region 1 Occurrences starting 08/10/2022 until 09/09/2023 [facility] Work Phone: Comment on above: 1 Occurrences starting 08/10/2022 until 09/09/2023 End: 11-18-2024 Mri spinal canal cervical w/o contrast matrl MRI CERVICAL SPINE WO IVCON Radiology STAT Spinal stenosis of cervical region Myelopathy (HCC) Urinary incontinence, unspecified type 1 Occurrences starting 10/20/2023 until 11/18/2024 [facility] Work Phone: Comment on above: 1 Occurrences starting 10/20/2023 until 11/18/2024 End: 11-18-2024 Mri spinal canal lumbar w/o contrast material MRI LUMBAR SPINE WO IVCON Radiology STAT Spinal stenosis of lumbar region with neurogenic claudication Myelopathy (HCC) Urinary incontinence, unspecified type 1 Occurrences starting 10/20/2023 until 11/18/2024 [facility] Work Phone: Comment on above: 1 Occurrences starting 10/20/2023 until 11/18/2024 PAIN PANEL, UR QUANT PAIN PANEL, UR QUANT Lab Routine Pain syndrome, chronic 06/28/2023 3:22 PM EDT [facility] Work Phone: POST VOID RESIDUAL POST VOID RES IDUAL Procedures Routine Overflow incontinence of urine Ordered: 02/16/2023 [facility] Work Phone: Comment on above: Ordered: 02/16/2023 POST VOID RESIDUAL POST VOID RES IDUAL Procedures Routine 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 Screening for genitourinary condition Ordered: 01/03/2024 [facility] Work Phone: Comment on above: Ordered: 01/03/2024 Radex hip unilateral with pelvis 1 view XR HIP 1V UNIL W PELVIS WHEN PERFORMED (AG) Radiology Routine Dislocation of hip joint prosthesis, subsequent encounter 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, subsequent encounter Ordered: 07/06/2023 [facility] Work Phone: Comment on above: Ordered: 07/06/2023 Radex hip unilateral with pelvis 1 view XR HIP 1V UNIL W PELVIS WHEN PERFORMED (AG) Radiology Routine Dislocation of hip joint prosthesis, subsequent encounter 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, subsequent encounter Ordered: 10/19/2023 [facility] Work Phone: Comment on above: Ordered: 10/19/2023 End: 04-18-2023 Radex spine cervical 4 or 5 views XR CERV OTHER 4V AP/LAT/OBL Radiology Routine Neck pain Numbness and tingling of both upper extremities 1 Occurrences starting 03/19/2022 until 04/18/2023 [facility] Work Phone: Comment on above: 1 Occurrences starting 03/19/2022 until 04/18/2023 Radiologic examinati on pelvis 1/2 views XR PELVIS 1V AP Radiology Routine 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, subsequent encounter Ordered: 01/26/2023 [facility] Work Phone: Comment on above: Ordered: 01/26/2023 Radiologic examinati on pelvis 1/2 views XR PELVIS 1V AP Radiology Routine 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, subsequent encounter Ordered: 02/23/2023 [facility] Work Phone: Comment on above: Ordered: 02/23/2023 Radiologic examinati on pelvis 1/2 views XR PELVIS 1V AP Radiology Routine 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, subsequent encounter Ordered: 03/16/2023 [facility] Work Phone: Comment on above: Ordered: 03/16/2023 Radiologic examinati on pelvis 1/2 views XR PELVIS 1V AP Radiology Routine Dislocation of hip joint prosthesis, subsequent encounter 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, subsequent encounter Ordered: 03/30/2023 [facility] Work Phone: Comment on above: Ordered: 03/30/2023 Radiologic examinati on pelvis 1/2 views XR PELVIS 1V AP Radiology Routine Dislocation of hip joint prosthesis, subsequent encounter 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, subsequent encounter Ordered: 05/11/2023 [facility] Work Phone: Comment on above: Ordered: 05/11/2023 SPECIMEN VALIDITY, URINE SPECIME N VALIDITY, URINE Lab Routine Pain syndrome, chronic 06/28/2023 3:22 PM EDT [facility] Work Phone: UA DIP, URINE (POC) UA DIP, URIN E (POC) Lab Routine Urinary frequency Ordered: 09/28/2023 [facility] Work Phone: Comment on above: Ordered: 09/28/2023 End: 04-10-2025 US Carotid arteries - bilateral US CAROTID ARTERIES [facility] Vascular Lab Routine Dizziness 1 Occurrences starting 04/10/2024 until 04/10/2025 [facility] Work Phone: Comment on above: 1 Occurrences starting 04/10/2024 until 04/10/2025 US CYSTO/TRUS (POC) GUKI USE ONLY US CYSTO/TRUS (POC) GUKI USE ONLY Imaging Diagnostic Routine BPH with obstruction/lower urinary tract symptoms Urine retention Hydronephrosis, unspecified hydronephrosis type Ordered: 07/10/2024 [facility] Work Phone: Comment on above: Ordered: 07/10/2024 End: 01-27-2025 US Kidney - bilateral and Urinary bladder US KIDNEY/BLADDER Radiology Routine Acute cystitis without hematuria 1 Occurrences starting 12/29/2023 until 01/27/2025 [facility] Work Phone: Comment on above: 1 Occurrences starting 12/29/2023 until 01/27/2025 End: 05-19-2025 US Kidney - bilateral and Urinary bladder US KIDNEY/BLADDER Radiology Routine Hydronephrosis, unspecified hydronephrosis type BPH with obstruction/lower urinary tract symptoms Urine retention 1 Occurrences starting 04/19/2024 until 05/19/2025 [facility] Work Phone: Comment on above: 1 Occurrences starting 04/19/2024 until 05/19/2025 VOIDING TRIAL PROTOCOL VOIDING T RIAL PROTOCOL Procedures Routine BPH with obstruction/lower urinary tract symptoms Ordered: 07/31/2024 [facility] Work Phone: Comment on above: Ordered: 07/31/2024 XR FEMUR GENERAL 2V AP/LAT RIGHT XR FEMUR GENERAL 2V AP/LAT RIGHT Radiology Routine 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, subsequent encounter Ordered: 01/26/2023 [facility] Work Phone: Comment on above: Ordered: 01/26/2023 XR FEMUR GENERAL 2V AP/LAT RIGHT XR FEMUR GENERAL 2V AP/LAT RIGHT Radiology Routine 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, subsequent encounter Ordered: 02/23/2023 [facility] Work Phone: Comment on above: Ordered: 02/23/2023 XR FEMUR GENERAL 2V AP/LAT RIGHT XR FEMUR GENERAL 2V AP/LAT RIGHT Radiology Routine 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, subsequent encounter Ordered: 03/16/2023 [facility] Work Phone: Comment on above: Ordered: 03/16/2023 XR FEMUR GENERAL 2V AP/LAT RIGHT XR FEMUR GENERAL 2V AP/LAT RIGHT Radiology Routine Dislocation of hip joint prosthesis, subsequent encounter 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, subsequent encounter Ordered: 03/30/2023 [facility] Work Phone: Comment on above: Ordered: 03/30/2023 XR FEMUR GENERAL 2V AP/LAT RIGHT XR FEMUR GENERAL 2V AP/LAT RIGHT Radiology Routine Dislocation of hip joint prosthesis, subsequent encounter 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, subsequent encounter Ordered: 05/11/2023 [facility] Work Phone: Comment on above: Ordered: 05/11/2023 XR FEMUR GENERAL 2V AP/LAT RIGHT XR FEMUR GENERAL 2V AP/LAT RIGHT Radiology Routine Dislocation of hip joint prosthesis, subsequent encounter 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, subsequent encounter Ordered: 07/06/2023 [facility] Work Phone: Comment on above: Ordered: 07/06/2023 XR FEMUR GENERAL 2V AP/LAT RIGHT XR FEMUR GENERAL 2V AP/LAT RIGHT Radiology Routine Dislocation of hip joint prosthesis, subsequent encounter 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, subsequent encounter Ordered: 10/19/2023 [facility] Work Phone: Comment on above: Ordered: 10/19/2023 End: 04-25-2023 XR HIP GENERAL 3V PELV/AP/LAT RIGHT XR HIP GENERAL 3V PELV/AP/LAT RIGHT Radiology Routine Pain in right hip 1 Occurrences starting 03/26/2022 until 04/25/2023 [facility] Work Phone: Comment on above: 1 Occurrences starting 03/26/2022 until 04/25/2023 End: 12-02-2023 XR RIBS/CHEST 3V AP RIB/OBLS/CXR LEFT XR RIBS/CHEST 3V AP RIB/OBLS/CXR LEFT Radiology Routine Closed fracture of multiple ribs of left side with routine healing, subsequent encounter 1 Occurrences starting 11/02/2022 until 12/02/2023 [facility] Work Phone: Comment on above: 1 Occurrences starting 11/02/2022 until 12/02/2023 XR RIBS/CHEST 3V AP RIB/OBLS/CXR LEFT XR RIBS/CHEST 3V AP RIB/OBLS/CXR LEFT Radiology Routine Closed fracture of multiple ribs of left side with routine healing, subsequent encounter 11/02/2022 11:59 AM EST [facility] Work Phone: [facility] [place] OR [facility] [place] OR [facility] Immunizations Immunization Date Immunization Notes Care Provider Elly alexander 10-28-2023 influenza (HD-IIV4) vaccine, age 65+ yr, high dose, quadrivalent, PF (FLUZONE HIGH-DOSE) NA Dejuan PAUL Work Phone: [facility] 10-28-2023 influenza virus vacc ine, unspecified formulation Kerri Farmer KITCHEN LEAD.TRANSPORTATION DISPATCH MANAGER Work Phone: [facility] 01-05-2019 influenza virus vacc ine, unspecified formulation Joshua Vieira KITCHEN LEAD.TRANSPORTATION DISPATCH MANAGER Work Phone: [facility] 12-10-2016 pneumococcal conjuga te vaccine, 13 valent Gracy Sears KITCHEN LEAD.TRANSPORTATION DISPATCH MANAGER Work Phone: [facility] 10-25-2014 pneumococcal polysaccharide vaccine, 23 valent Gracy Sears KITCHEN LEAD.TRANSPORTATION DISPATCH MANAGER Work Phone: [facility] 09-24-2014 influenza, seasonal, injectable Gracy Dahlhausen KITCHEN LEAD.TRANSPORTATION DISPATCH MANAGER Work Phone: [facility] 09-29-2010 influenza virus vacc ine, unspecified formulation Gracy Dahlhausen KITCHEN LEAD.TRANSPORTATION DISPATCH MANAGER Work Phone: [facility] Work Phone: 11-13-2009 novel influenza-H1N1 -09, preservative-free, injectable NA Zaidi PA-C Work Phone: [facility] 09-25-2009 hepatitis B vaccine, adult dosage Gracy Dahlhausen KITCHEN LEAD.TRANSPORTATION DISPATCH MANAGER Work Phone: [facility] 08-05-2009 influenza virus vacc ine, whole virus NA Zaidi PA-C Work Phone: [facility] 04-24-2009 hepatitis B vaccine, adult dosage Gracy Dahlhausen KITCHEN LEAD.TRANSPORTATION DISPATCH MANAGER Work Phone: [facility] 04-24-2009 hepatitis B vaccine, pediatric or pediatric/adolescent dosage NA Zaidi PA-C Work Phone: [facility] 03-14-2009 hepatitis B vaccine, adult dosage Gracy Dahlhausen KITCHEN LEAD.TRANSPORTATION DISPATCH MANAGER Work Phone: [facility] 08-27-2008 influenza virus vacc ine, whole virus Gracy Dahlhausen KITCHEN LEAD.TRANSPORTATION DISPATCH MANAGER Work Phone: [facility] 10-04-2006 influenza virus vacc ine, unspecified formulation Gracy Dahlhausen KITCHEN LEAD.TRANSPORTATION DISPATCH MANAGER Work Phone: [facility] 08-22-2006 influenza virus vacc ine, whole virus Gracy Dahlhausen KITCHEN LEAD.TRANSPORTATION DISPATCH MANAGER Work Phone: [facility] 04-24-1990 hepatitis B vaccine, adult dosage Gracy Dahlhausen KITCHEN LEAD.TRANSPORTATION DISPATCH MANAGER Work Phone: [facility] Payers Date Payer Category Payer Medicare HUMANA MEDICARE HUMANA GOLD PLUS [id number] 2021-[facility] [phone] [address] [place] [address] HMO [id number] 2018 Medicare [id number] 2018 Private Health Insurance [id number] 1950 Unknown [id number] Social History Date Type Detail Facility Start: 03-20-2013 End: 07-10-2024 Tobacco smoking status NHIS Ex-smoker [facility] Start: 11-22-1969 End: 11-22-1992 History of tobacco use Current smoker [facility] Start: 11-22-1969 End: 11-22-1992 History of tobacco use Cigarette Smoker [facility] Start: 02-18-2022 End: 09-11-2024 Alcohol intake Ex-drinker (finding) [facility] Start: 09-29-2010 History SDOH Alcohol Comment quit in 1991. [facility] Start: 1950 Sex Assigned At Not on file C [facility] Start: 11-23-2021 End: 08-10-2022 Exposure to SARS-CoV-2 (event) Yes [facility] Start: 11-13-2020 End: 10-22-2022 Exposure to SARS-CoV-2 (event) Not sure [facility] Start: 03-20-2013 End: 12-06-2022 Cigarettes smoked current (pack per day) - Reported 2 [facility] Start: 03-20-2013 End: 07-10-2024 Tobacco use and exposure Smokeless tobacco non-user [facility] Start: 11-13-2022 History SDOH Financial 5 [facility] Start: 11-13-2022 End: 01-11-2023 History SDOH Food Worry 1 [facility] Start: 11-13-2022 End: 01-11-2023 History SDOH Transport Med 2 [facility] Start: 01-11-2023 History SDOH Financial 3 [facility] Start: 12-06-2022 End: 05-12-2023 Tobacco use panel [facility] How hard is it for y ou to pay for the very basics like food, housing, medical care, and heating Somewhat hard [facility] Adult Depression Screening Assessment 0 [facility] Work Phone: (I/We) worried sanjay er (my/our) food would run out before (I/we) got money to buy more. Never true [facility] In the past 12 month s, was there a time when you were not able to pay the mortgage or rent on time? No [facility] Start: 12-13-2020 Alcoholic beverage intake Current non-drinker of alcohol (finding) [facility] NEGATED: Highlighted rowStart: NINF History of tobacco use Passive smoker [facility] Medical Equipment Procedure Code Equipment Code Equipment Origin al Text Equipment Identifier Dates Hilario Bn Smpx P Speedset Fd Fst - [id number] Start: 01-04-2015 Urz-Uy-T-Kind Implant - [id number] Start: 01-04-2015 Comment on above: Description: Eccentr ic Humeral Head C1776 ECC HUMERAL HEAD Shell Actb 60mm Prim Sb Hmsphr - [id number] Start: 07-25-2014 Ins Actb 36mm 0d F X3 Trdnt - [id number] Start: 07-25-2014 Fem Stem Acclde 2 Sz 8 127 Deg - [id number] Start: 07-25-2014 Head Fem 36mm V4 0 Blx D - [id number] Start: 07-25-2014 [place] Steptec Jagdish 52 5mm Rt - [id number] Start: 01-04-2015 Comment on above: Description: C1776 A NCHOR STEPTEC JAGDISH 52 5MM RT Stem Hum 14mm Gl ob Ap Shldr - [id number] Start: 01-04-2015 Assemb Tapr Glob Ap 135d Shldr - [id number] Start: 01-04-[address] us Bovine Collagen Matrix 2x2in Soft Tissue Patch - [id number] Start: 04-01-2022 Cable Anyi 2mm Vitallium Orthopedic Set Sleeve Bead Hip - [id number] Start: 01-08-2023 Rnt-Tm-O-Kind Implant - [id number] Start: 01-08-2023 Imp Hip Cone Bdy Rest 21 Pls10 [id number] Start: 01-11-2023 Head V40 36mm +5 mm Offset Taper Biolox Delta Femoral Hip - [id number] Start: 01-08-2023 Head V40 36mm +5 mm Offset Taper Biolox Delta Femoral Hip - [id number] Start: 01-11-2023 Imp Hip Fem Stem Rest [id number] Start: 01-11-2023 Imp Hip Acet Lnr Cnstrn 28mm [id number] Start: 04-02-2023 Head V40 28mm -4 mm Offset Taper Biolox Delta Femoral Hip - [id number] Start: 04-02-2023 Otq-Sx-W-Kind Implant - [id number] Start: 01-08-2023 Imp Hip Cone Bdy Rest 21 Pls20 [id number] Start: 04-02-2023 Cable Dall-Miles 2mm Vitallium Orthopedic Set Sleeve Bead Hip - [id number] Start: 01-08-2023 Cable Dall-Miles 2mm Vitallium Orthopedic Set Sleeve Bead Hip - [id number] Start: 01-08-2023 Clinical Notes 07-31-2010 to 09-12-2024 Telephone Encounter - Clark Simmons MA - 09/12/2024 2:26 PM EDTTelephone Encounter - Clark Simmons MA - 09/12/2024 [facility] Inez Estrada LSW - 09/12/2024 1:30 PM EDT Note Date & Type Note Facility 09-12-2024 Telephone encounter Note Home health called stating that the patient if complaining that he is having pain with the catheter. I explained that it was just changed yesterday and he has Cystoscopy done the RN agrees that, that is most likely why. He also states that there is urine coming out from around the catheter. Is there anything further you would like the patient to do at this time or anything you would like home health to do at this time? Can you advise? Clark Simmons MA Home health phone [phone] [facility] 09-12-2024 Miscellaneous Notes Home health called stating that the patient if complaining that he is having pain with the catheter. I explained that it was just changed yesterday and he has Cystoscopy done the RN agrees that, that is most likely why. He also states that there is urine coming out from around the catheter. Is there anything further you would like the patient to do at this time or anything you would like home health to do at this time? Can you advise? Clark Simmons MA Home health phone [phone] documented in this encounter [facility] 09-12-2024 Miscellaneous Notes 09/12/24 1:35 PM - 1:57 PM INSTRUCTIONAL SYSTEMS DESIGNER received a phone call from the pt. that he has an appointment on 09/19/24 with Urology at [facility] [place], [address] [place] [address]. The pt. asked INSTRUCTIONAL SYSTEMS DESIGNER if she culd help set up transportation. The pt. stated he was in pain. INSTRUCTIONAL SYSTEMS DESIGNER made a three way call with the pt. to [employer] under [employer] and we first had a virtual person Brenna and then spoke to Landy. The pt. and INSTRUCTIONAL SYSTEMS DESIGNER scheduled his transportation for his 8:40 AM appointment on 09/19/24 with Urology at [facility] [place]. The pt. to picked up at 7:35 AM and [place] trip [place] was [phone] and he is to call them back to pick him up from his appointment phone number [phone]. The pt. wrote all of this down. INSTRUCTIONAL SYSTEMS DESIGNER stayed on the phone with the pt. and asked him where his pain was and he stated he did not get his catheter out and it was hurting and leaking. INSTRUCTIONAL SYSTEMS DESIGNER asked the pt. if he had urine in his bag and he stated the urine was running down his leg. INSTRUCTIONAL SYSTEMS DESIGNER stated she was going to talk with the Nurse. 09/12/24 1:58 PM INSTRUCTIONAL SYSTEMS DESIGNER called Marilee Reece RN Asst Nurse Television Camera Operator and informed her on phone call INSTRUCTIONAL SYSTEMS DESIGNER had with the pt. and he stated he was in pain and his catheter was leaking. INSTRUCTIONAL SYSTEMS DESIGNER stated he went to Urology yesterday and he stated he did not get the catheter out. He stated his urine was running down his leg. Triage to be notified of Nurse needing to see the pt. documented in this encounter [facility] 09-12-2024 Patient's home Note 09/12/24 1:35 PM - 1:57 PM INSTRUCTIONAL SYSTEMS DESIGNER received a phone call from the pt. that he has an appointment on 09/19/24 with Urology at [facility] [place], [address] [place] [address]. The pt. asked INSTRUCTIONAL SYSTEMS DESIGNER if she culd help set up transportation. The pt. stated he was in pain. INSTRUCTIONAL SYSTEMS DESIGNER made a three way call with the pt. to [employer] under [employer] and we first had a virtual person Brenna and then spoke to Landy. The pt. and INSTRUCTIONAL SYSTEMS DESIGNER scheduled his transportation for his 8:40 AM appointment on 09/19/24 with Urology at [facility] [place]. The pt. to picked up at 7:35 AM and [place] [phone] and he is to call them back to pick him up from his appointment phone number [phone]. The pt. wrote all of this down. INSTRUCTIONAL SYSTEMS DESIGNER stayed on the phone with the pt. and asked him where his pain was and he stated he did not get his catheter out and it was hurting and leaking. INSTRUCTIONAL SYSTEMS DESIGNER asked the pt. if he had urine in his bag and he stated the urine was running down his leg. INSTRUCTIONAL SYSTEMS DESIGNER stated she was going to talk with the Nurse. 09/12/24 1:58 PM INSTRUCTIONAL SYSTEMS DESIGNER called Marilee Reece RN Asst Nurse Television Camera Operator and informed her on phone call INSTRUCTIONAL SYSTEMS DESIGNER had with the pt. and he stated he was in pain and his catheter was leaking. INSTRUCTIONAL SYSTEMS DESIGNER stated he went to Urology yesterday and he stated he did not get the catheter out. He stated his urine was running down his leg. Triage to be notified of Nurse needing to see the pt. [facility] Work Phone: 09-11-2024 History of Present illness Narrative ESTABLISHED [...] Date Value 12/28/2023 Negative 01/05/2019 Negative Specific [place], Ur (no units) Date Value 12/28/2023 1.013 [...] , LWK , LUSUL in the last [id number] hours. REVIEW OF SYSTEMS Review of Systems [...] unspecified hydronephrosis type Insomnia, unspecified Leukocytosis 11/22/1986 [facility] admission - thought leukemia and he refused [...] Currently Comment: Quit drugs in ~. MEDICATIONS: tamsulosin (FLOMAX) 0.4 mg^Take 1 capsule [...] 1 - N/A documented in this encounter [facility] 09-11-2024 Miscellaneous Notes New orders received for PT/SP evals. [facility] rehab and primary nurse notified. documented in this encounter [facility] 09-11-2024 Patient's home Note New orders received for PT/SP evals. [facility] rehab and primary nurse notified. [facility] Work Phone: 09-11-2024 Miscellaneous Notes 09/11/24 9:05 AM - 9:08 AM INSTRUCTIONAL SYSTEMS DESIGNER called the pt. regarding his appointment today with Urology and the pt. stated he remembered and stated his appointment was at 3:00 PM. The pt. stated he would be ready at 1;30 PM for the transportation to pick him up. The pt. thanked INSTRUCTIONAL SYSTEMS DESIGNER for calling him. documented in this encounter [facility] 09-11-2024 Patient's home Note 09/11/24 9:05 AM - 9:08 AM INSTRUCTIONAL SYSTEMS DESIGNER called the pt. regarding his appointment today with Urology and the pt. stated he remembered and stated his appointment was at 3:00 PM. The pt. stated he would be ready at 1;30 PM for the transportation to pick him up. The pt. thanked INSTRUCTIONAL SYSTEMS DESIGNER for calling him. [facility] Work Phone: 09-07-2024 Telephone encounter Note Ok for above. Agree with psychiatric social worker supervisor seeing him. See previous note [facility] 09-07-2024 Miscellaneous Notes Ok for above. Agree with psychiatric social worker supervisor seeing him. See previous note Dione Uriarte with [facility] calls to request orders for PT eval and TX for dizziness (would like to have ears checked for crystals) and ST eval for cognition. Reports that patient is not managing well in the home and that memory is poor. Patient is dizzy frequently and not walking in the home. Patient is refusing AL placement. Dione requests call back at [phone]. Please review and advise, Licha Carcamo RN documented in this encounter [facility] 09-07-2024 Telephone encounter Note Dione Uriarte with [facility] calls to request orders for PT eval and TX for dizziness (would like to have ears checked for crystals) and ST eval for cognition. Reports that patient is not managing well in the home and that memory is poor. Patient is dizzy frequently and not walking in the home. Patient is refusing AL placement. Dione requests call back at [phone]. Please review and advise, Licha Carcamo RN [facility] 09-07-2024 Miscellaneous Notes SN had discussion [...] evaluate cognition. 10:00am call to Abena Beckford APRN.TRANSPORTATION DISPATCH MANAGER office with above requests. This SN also spoke with Bharati Estrada MSW for coordination of care concerns. documented in this encounter [facility] 09-07-2024 Patient's home Note SN had [...] evaluate cognition. 10:00am call to Abena Beckford APRN.TRANSPORTATION DISPATCH MANAGER office with above requests. This SN also spoke with Bharati DANIEL for coordination of care concerns. [facility] Work Phone: 09-07-2024 Miscellaneous Notes 09/07/24 INSTRUCTIONAL SYSTEMS DESIGNER spoke with Eugene Uriarte RN Case Manager and she discussed the pt. with INSTRUCTIONAL SYSTEMS DESIGNER and that she was looking into PT seeing the pt. again regarding his dizziness. She stated that the pt. had fallen per Andressa Shah RN and Andressa saw the pt. yesterday. INSTRUCTIONAL SYSTEMS DESIGNER discussed with Eugene regarding a Speech Therapist for the pt. regarding his memory. INSTRUCTIONAL SYSTEMS DESIGNER discussed the pt. was on the waiting list for Care Coordination. INSTRUCTIONAL SYSTEMS DESIGNER will contact the pt. regarding concerns of him managing alone in his apt. and regarding hiring help in the home. 09/07/24 9:57 AM - 10:02 AM INSTRUCTIONAL SYSTEMS DESIGNER called the pt. and he stated he recognized INSTRUCTIONAL SYSTEMS DESIGNER'S voice. INSTRUCTIONAL SYSTEMS DESIGNER stated she was calling regarding concerns of him living alone and his recent fall. The pt. stated I did not fall but slipped when transferring from bed to the wheelchair. INSTRUCTIONAL SYSTEMS DESIGNER asked the pt. if he would like INSTRUCTIONAL SYSTEMS DESIGNER to talk with family and that INSTRUCTIONAL SYSTEMS DESIGNER could call his daughter. He stated she lives in [place] and declined INSTRUCTIONAL SYSTEMS DESIGNER calling any family. INSTRUCTIONAL SYSTEMS DESIGNER discussed with the pt. if he was looking to hire someone to do his laundry and cleaning in his apt. The pt. stated he thought about it but stated I cannot afford to pay $25 an hour. INSTRUCTIONAL SYSTEMS DESIGNER discussed with the pt. that he was on the waiting list for Care Coordination through [facility] on [facility]ging & Disabilities but it may take time to get an Aide/Homemaker under Care Coordination. INSTRUCTIONAL SYSTEMS DESIGNER discussed with the pt. regarding his dizziness. The pt. stated he was pucking the other day and INSTRUCTIONAL SYSTEMS DESIGNER asked if that was from being dizzy and he stated. No it was from eating my strawberry jam that was no good. INSTRUCTIONAL SYSTEMS DESIGNER discussed with the pt. going into assisted living and the pt. does not want this. INSTRUCTIONAL SYSTEMS DESIGNER asked the pt. if he had food and he stated he did and that his friends picked him up groceries yesterday. INSTRUCTIONAL SYSTEMS DESIGNER discussed with the pt. regarding his appointment with Urology on Wednesday09/11/24 and the pt. stated yes. INSTRUCTIONAL SYSTEMS DESIGNER discussed hiw appointment was at 3:15 PM and the pt. stated they are to pick him up around 1:30 PM. The pt. stated he will be able to do his own laundry and thanked INSTRUCTIONAL SYSTEMS DESIGNER for calling. He stated he was managing and INSTRUCTIONAL SYSTEMS DESIGNER informed the pt. to call INSTRUCTIONAL SYSTEMS DESIGNER with any needs. 09/07/24 10:02 AM - 10:10 AM INSTRUCTIONAL SYSTEMS DESIGNER called Vero Torres with [facility] regarding concerns of the pt. living alone. INSTRUCTIONAL SYSTEMS DESIGNER discussed with Vero that the pt. fell getting from bed to his wheelchair. INSTRUCTIONAL SYSTEMS DESIGNER discussed with vero regarding the pt. telling INSTRUCTIONAL SYSTEMS DESIGNER he was pucking from eating strawberry jam that was no good. INSTRUCTIONAL SYSTEMS DESIGNER discussed concerns of the pt. being forgetful. INSTRUCTIONAL SYSTEMS DESIGNER informed Vero that the pt. did have a home assessment from [facility] on [facility] Disabilities and was put on the waiting list for Care Coordination. INSTRUCTIONAL SYSTEMS DESIGNER stated that the pt. was over financially for [employer]. INSTRUCTIONAL SYSTEMS DESIGNER stated that the pt. did not want her to call his family. INSTRUCTIONAL SYSTEMS DESIGNER stated that the pt. receives 5 meals a week and has limited assist to grocery shop. INSTRUCTIONAL SYSTEMS DESIGNER discussed with Vero regarding getting PT to see the pt. again for his dizziness and discussed getting a Speech Therapist for the pt.'s memory. Vero discussed the pt. going to the [employer] [place] for meals. Vero stated she has documented this and to call her with any concerns. The pt.'s case is currently closed. 09/07/24 10:11 AM INSTRUCTIONAL SYSTEMS DESIGNER called Eugene Uriarte RN Case Manager regarding phone call with the pt. and phone call to Vero Torres with [facility]. Eugene has conatcted the Dr. regarding PT and Speech Therapy for the pt. documented in this encounter [facility] 09-07-2024 Patient's home Note 09/07/24 INSTRUCTIONAL SYSTEMS DESIGNER spoke with Eugene Uriarte RN Case Manager and she discussed the pt. with INSTRUCTIONAL SYSTEMS DESIGNER and that she was looking into PT seeing the pt. again regarding his dizziness. She stated that the pt. had fallen per Andressa Shah RN and Andressa saw the pt. yesterday. INSTRUCTIONAL SYSTEMS DESIGNER discussed with Eugene regarding a Speech Therapist for the pt. regarding his memory. INSTRUCTIONAL SYSTEMS DESIGNER discussed the pt. was on the waiting list for Care Coordination. INSTRUCTIONAL SYSTEMS DESIGNER will contact the pt. regarding concerns of him managing alone in his apt. and regarding hiring help in the home. 09/07/24 9:57 AM - 10:02 AM INSTRUCTIONAL SYSTEMS DESIGNER called the pt. and he stated he recognized INSTRUCTIONAL SYSTEMS DESIGNER'S voice. INSTRUCTIONAL SYSTEMS DESIGNER stated she was calling regarding concerns of him living alone and his recent fall. The pt. stated I did not fall but slipped when transferring from bed to the wheelchair. INSTRUCTIONAL SYSTEMS DESIGNER asked the pt. if he would like INSTRUCTIONAL SYSTEMS DESIGNER to talk with family and that INSTRUCTIONAL SYSTEMS DESIGNER could call his daughter. He stated she lives in [place] and declined INSTRUCTIONAL SYSTEMS DESIGNER calling any family. INSTRUCTIONAL SYSTEMS DESIGNER discussed with the pt. if he was looking to hire someone to do his laundry and cleaning in his apt. The pt. stated he thought about it but stated I cannot afford to pay $25 an hour. MARGARITA discussed with the pt. that he was on the waiting list for Care Coordination through [facility] Aging & Disabilities but it may take time to get an Aide/Homemaker under Care Coordination. INSTRUCTIONAL SYSTEMS DESIGNER discussed with the pt. regarding his dizziness. The pt. stated he was pucking the other day and INSTRUCTIONAL SYSTEMS DESIGNER asked if that was from being dizzy and he stated. No it was from eating my strawberry jam that was no good. MARGARITA discussed with the pt. going into assisted living and the pt. does not want this. INSTRUCTIONAL SYSTEMS DESIGNER asked the pt. if he had food and he stated he did and that his friends picked him up groceries yesterday. INSTRUCTIONAL SYSTEMS DESIGNER discussed with the pt. regarding his appointment with Urology on Wednesday09/11/24 and the pt. stated yes. INSTRUCTIONAL SYSTEMS DESIGNER discussed hiw appointment was at 3:15 PM and the pt. stated they are to pick him up around 1:30 PM. The pt. stated he will be able to do his own laundry and thanked INSTRUCTIONAL SYSTEMS DESIGNER for calling. He stated he was managing and INSTRUCTIONAL SYSTEMS DESIGNER informed the pt. to call INSTRUCTIONAL SYSTEMS DESIGNER with any needs. 09/07/24 10:02 AM - 10:10 AM INSTRUCTIONAL SYSTEMS DESIGNER called Vero Torres with [facility] regarding concerns of the pt. living alone. INSTRUCTIONAL SYSTEMS DESIGNER discussed with Vero that the pt. fell getting from bed to his wheelchair. INSTRUCTIONAL SYSTEMS DESIGNER discussed with vero regarding the pt. telling INSTRUCTIONAL SYSTEMS DESIGNER he was pucking from eating strawberry jam that was no good. INSTRUCTIONAL SYSTEMS DESIGNER discussed concerns of the pt. being forgetful. INSTRUCTIONAL SYSTEMS DESIGNER informed Vero that the pt. did have a home assessment from [facility] and was put on the waiting list for Care Coordination. INSTRUCTIONAL SYSTEMS DESIGNER stated that the pt. was over financially for [employer]. INSTRUCTIONAL SYSTEMS DESIGNER stated that the pt. did not want her to call his family. INSTRUCTIONAL SYSTEMS DESIGNER stated that the pt. receives 5 meals a week and has limited assist to grocery shop. INSTRUCTIONAL SYSTEMS DESIGNER discussed with Vero regarding getting PT to see the pt. again for his dizziness and discussed getting a Speech Therapist for the pt.'s memory. Vero discussed the pt. going to the [employer] [place] for meals. Vero stated she has documented this and to call her with any concerns. The pt.'s case is currently closed. 09/07/24 10:11 AM INSTRUCTIONAL SYSTEMS DESIGNER called Eugene Uriarte RN Case Manager regarding phone call with the pt. and phone call to Vero Torres with [facility]. Eugene has conatcted the DrAkhil regarding PT and Speech Therapy for the pt. [facility] Work Phone: 09-07-2024 Telephone encounter Note Noted. Thank you. [facility] 09-07-2024 Miscellaneous Notes Noted. Thank you. [...] well at home; we have had our WRAPPER DIPPER involved and we feel that pt needs a higher level of care than home care can provide. We will be elevating this to a team discussion and will contact you with recommendations. You may review our SW notes in his chart. Thank you and will keep you posted. documented in this encounter [facility] 09-06-2024 Telephone encounter Note Good evening; [...] well at home; we have had our WRAPPER DIPPER involved and we feel that pt needs a higher level of care than home care can provide. We will be elevating this to a team discussion and will contact you with recommendations. You may review our SW notes in his chart. Thank you and will keep you posted. [facility] Work Phone: 09-06-2024 Miscellaneous Notes SITUATION: Halfway routine visit completed today. only patient present during today's visit. patient reports the following: Allergies--reviewed Medications--reviewed current medications Falls--Yes, see fall section for details BACKGROUND: Reason for Home Care: pt with hx of dizziness, decreased ability to manage his home needs, unable to manage his med assistant media planner. ASSESSMENT: SN greeted at door by patient [...] supervision but there is no supervision available. RAYON TESTER was also dc'd at that time. PT [...] this coming week. Plan to discuss with shoe caser and recommend that pt be on high risk call for next week for plan. Pt at very high risk for falls; he is clearly not managing his day to day needs, he is unable to do personal care and homemaking needs, unable to fill his pill assistant media planner. He does not qualify for PASSPORT and [...] to be determined. documented in this encounter [facility] 09-06-2024 Patient's home Note SITUATION: Halfway routine visit completed today. only patient present during today's visit. patient reports the following: Allergies--reviewed Medications--reviewed current medications Falls--Yes, see fall section for details BACKGROUND: Reason for Home Care: pt with hx of dizziness, decreased ability to manage his home needs, unable to manage his med assistant media planner. ASSESSMENT: SN greeted at door by patient [...] Pt reports that he fell twice on Wednesday- day-trying to get from bed to his [...] supervision but there is no supervision available. RAYON TESTER was also dc'd at that time. PT [...] this coming week. Plan to discuss with shoe caser and recommend that pt be on high risk call for next week for plan. Pt at very high risk for falls; he is clearly not managing his day to day needs, he is unable to do personal care and homemaking needs, unable to fill his pill assistant media planner. He does not qualify for PASSPORT and [...] care team and plan to be determined. [facility] Work Phone: 08-30-2024 Miscellaneous Notes SITUATION: Halfway routine visit completed today. only patient present [...] did this for him today and messaged shoe caser regarding progress of pre packaged meds. Pt [...] this was done with the assistance of INSTRUCTIONAL SYSTEMS DESIGNER. Pt reports that he is getting his meals-5 per week) and eats this for dinner. See intervention summary for education details. Patient demonstrated a need for further skilled SN services for chronic disease management & education and medication education. Current Discharge plan: self-care RECOMMENDATION: Next visit to focus on (be specific): med management documented in this encounter [facility] 08-30-2024 Patient's home Note SITUATION: Halfway routine visit completed today. only patient present [...] did this for him today and messaged shoe caser regarding progress of pre packaged meds. Pt [...] this was done with the assistance of INSTRUCTIONAL SYSTEMS DESIGNER. Pt reports that he is getting his meals-5 per week) and eats this for dinner. See intervention summary for education details. Patient demonstrated a need for further skilled SN services for chronic disease management & education and medication education. Current Discharge plan: self-care RECOMMENDATION: Next visit to focus on (be specific): med management [facility] Work Phone: 08-29-2024 Miscellaneous Notes 08/29/24 12;15 PM - 12:18 PM INSTRUCTIONAL SYSTEMS DESIGNER called the pt. regarding INSTRUCTIONAL SYSTEMS DESIGNER spoke to Pavan Technical Intern with [facility] and she informed INSTRUCTIONAL SYSTEMS DESIGNER that he had an assessment on 08/08/24. She stated he. stated he was over assets for PASSPORT and was put on the waiting list for Care Coordination. INSTRUCTIONAL SYSTEMS DESIGNER discussed with the pt. he maybe able to get an Aide/Homemaker under Care Coordination when on the program. The pt. supportive of this and thanked INSTRUCTIONAL SYSTEMS DESIGNER for her help. documented in this encounter [facility] 08-29-2024 Patient's home Note 08/29/24 12;15 PM - 12:18 PM INSTRUCTIONAL SYSTEMS DESIGNER called the pt. regarding INSTRUCTIONAL SYSTEMS DESIGNER spoke to Pavan Technical Intern with [facility] and she informed INSTRUCTIONAL SYSTEMS DESIGNER that he had an assessment on 08/08/24. She stated he. stated he was over assets for PASSPORT and was put on the waiting list for Care Coordination. INSTRUCTIONAL SYSTEMS DESIGNER discussed with the pt. he maybe able to get an Aide/Homemaker under Care Coordination when on the program. The pt. supportive of this and thanked INSTRUCTIONAL SYSTEMS DESIGNER for her help. [facility] Work Phone: 08-29-2024 Miscellaneous Notes 08/29/24 10:59 AM - 11:02 AM INSTRUCTIONAL SYSTEMS DESIGNER called Pavan Technical Intern with [facility] and she informed INSTRUCTIONAL SYSTEMS DESIGNER that the pt. had an assessment on 08/08/24. She stated that the pt. stated he was over assets for PASSPORT and was put on the waiting list for Care Coordination. documented in this encounter [facility] 08-29-2024 Patient's home Note 08/29/24 10:59 AM - 11:02 AM INSTRUCTIONAL SYSTEMS DESIGNER called Pavan Technical Intern with [facility] and she informed INSTRUCTIONAL SYSTEMS DESIGNER that the pt. had an assessment on 08/08/24. She stated that the pt. stated he was over assets for PASSPORT and was put on the waiting list for Care Coordination. [facility] Work Phone: 08-28-2024 Miscellaneous Notes :54 PM - 2;23 PM INSTRUCTIONAL SYSTEMS DESIGNER called the pt. regarding tranportation to outpatient therapy. INSTRUCTIONAL SYSTEMS DESIGNER informed the pt. he can call [employer] under his [employer] and provided the pt. with the phone number [phone]. The pt. stated he needs transportation to Urology on 09/11/24 in [place]. INSTRUCTIONAL SYSTEMS DESIGNER informed the pt. she could make a three way call and assist him to set up transportation but he has to learn how to do this. INSTRUCTIONAL SYSTEMS DESIGNER made a three way call with the pt. to [employer] under [employer] and we first spoke to the virtual quality assurance assistant but then was transferred to [facility]. The pt. informed [facility] that he has an appointment 09/11/24 at [facility], [address] [address] and he stated he had to be there at 3:00 PM. Doreen asked about any special instructions and the pt. stated the last diesel truck driver that came did not come to [...] not sure and will call back for cotton picking machine operator. She inforned the pt. to call [phone] for cotton picking machine operator and the pt. stated he has the phone number. Doreen [place] [phone]. MARGARITA stayed on the phone with the pt. and asked him if she has heard from [facility] and he stated he did not think so. 08/28/24 2;26 PM - 2;28 PM MARGARITA called Pavan Technical Intern with [facility] and left her a message regarding referral INSTRUCTIONAL SYSTEMS DESIGNER made for the pt. 08/09/24 and he was not sure if he was contacted. MARGARITA asked Pavan to call INSTRUCTIONAL SYSTEMS DESIGNER back. 08/28/24 2:40 PM MARGARITA spoke with Eugene Uriarte RN Case Manager regarding transportation set up for the pt. for his Urology appointment on 09/11/24. documented in this encounter [facility] 08-28-2024 Patient's home Note 241:54 PM - 2;23 PM MARGARITA called the pt. regarding tranportation to outpatient therapy. MARGARITA informed the pt. he can call [employer] under his [employer] Medicare and provided the pt. with the phone number [phone]. The pt. stated he needs transportation to Urology on 09/11/24 in [place]. MARGARITA informed the pt. she could make a three way call and assist him to set up transportation but he has to learn how to do this. MARGARITA made a three way call with the pt. to [employer] under [employer] and we first spoke to the virtual quality assurance assistant but then was transferred to Doreen. The pt. informed Doreen that he has an appointment 09/11/24 at [facility], [place] - [facility] [place] [address] and he stated he had to be there at 3:00 PM. Doreen asked about any special instructions and the pt. stated the last diesel truck driver that came did not come to [...] not sure and will call back for cotton picking machine operator. She inforned the pt. to call [phone] for cotton picking machine operator and the pt. stated he has the phone number. Doreen [place] [phone]. MARGARITA stayed on the phone with the pt. and asked him if she has heard from [facility] and he stated he did not think so. 08/28/24 2;26 PM - 2;28 PM INSTRUCTIONAL SYSTEMS DESIGNER called Pavan Technical Intern with [facility] and left her a message regarding referral INSTRUCTIONAL SYSTEMS DESIGNER made for the pt. 08/09/24 and he was not sure if he was contacted. INSTRUCTIONAL SYSTEMS DESIGNER asked Pavan to call INSTRUCTIONAL SYSTEMS DESIGNER back. 08/28/24 2:40 PM INSTRUCTIONAL SYSTEMS DESIGNER spoke with Eugene Uriarte nightman regarding transportation set up for the pt. for his Urology appointment on 09/11/24. [facility] Work Phone: 08-28-2024 Miscellaneous Notes 08/28/24 10:37 AM - 10:39 AM INSTRUCTIONAL SYSTEMS DESIGNER called the pt. and his voicemail came on. INSTRUCTIONAL SYSTEMS DESIGNER left a message that INSTRUCTIONAL SYSTEMS DESIGNER was calling regarding transportation to Outpatient Therapy. INSTRUCTIONAL SYSTEMS DESIGNER left her name and phone number for the pt. to call INSTRUCTIONAL SYSTEMS DESIGNER back. documented in this encounter [facility] 08-28-2024 Patient's home Note 08/28/24 10:37 AM - 10:39 AM INSTRUCTIONAL SYSTEMS DESIGNER called the pt. and his voicemail came on. INSTRUCTIONAL SYSTEMS DESIGNER left a message that INSTRUCTIONAL SYSTEMS DESIGNER was calling regarding transportation to Outpatient Therapy. INSTRUCTIONAL SYSTEMS DESIGNER left her name and phone number for the pt. to call INSTRUCTIONAL SYSTEMS DESIGNER back. [facility] Work Phone: 08-25-2024 Miscellaneous Notes SITUATION: [...] is dizzy. Discussed recommendation for going to [facility] but pt is resistant to this at this time. Plan of care, goals, and discharge reviewed and agreed upon with patient/caregiver. RECOMMENDATION: Instructions include: discharged from OT and is active with SN. Post dc recommendations: continue to have assistance with IADL, ADL when he has increased dizziness. See intervention summary for intervention/education details. documented in this encounter [facility] 08-25-2024 Patient's home Note SITUATION: Pt [...] is dizzy. Discussed recommendation for going to [facility] but pt is resistant to this at this time. Plan of care, goals, and discharge reviewed and agreed upon with patient/caregiver. RECOMMENDATION: Instructions include: discharged from OT and is active with SN. Post dc recommendations: continue to have assistance with IADL, ADL when he has increased dizziness. See intervention summary for intervention/education details. [facility] Work Phone: 08-24-2024 Telephone encounter Note Spoke with pt and information listed below given. Pt verbalizes understanding. Zita Palmer LPN [facility] 08-24-2024 Miscellaneous Notes Spoke with pt [...] tablet by mouth once daily. Corrie Marinelli APRN.MYRA Patient no longer wishes to use the [facility] since Henrik cannot get into his apartment building. He asked if new prescriptions could please be sent to [facility] pharmacy. Thank you, Lena Steele RPh documented in this encounter [facility] 08-24-2024 Telephone encounter Note The following [...] tablet by mouth once daily. Corrie Marinelli APRN.TRANSPORTATION DISPATCH MANAGER [facility] 08-24-2024 Miscellaneous Notes SITUATION: only patient [...] for intervention/education details. documented in this encounter [facility] 08-24-2024 Patient's home Note SITUATION: only [...] DC See intervention summary for intervention/education details. [facility] Work Phone: 08-24-2024 Telephone encounter Note Patient no longer wishes to use the [facility] since Henrik cannot get into his apartment building. He asked if new prescriptions could please be sent to [facility] pharmacy. Thank you, Lena Steele RPh [facility] 08-23-2024 Miscellaneous Notes SITUATION: Halfway routine visit completed today. only patient present [...] pt to follow up with urologist in [place] for further recommendations. SN notes that he has an appt on Sep 11 at 3:[address] Quintana from [place]. SN instructed pt to contact his office, explain what happened yesterday and get instruction on whether to wait until Sep 11 or should he be seen sooner. Also instructed pt on scheduling transportation for this appt. He reports that he is not sure how to do that. SN will follow up with pt and INSTRUCTIONAL SYSTEMS DESIGNER as this appt is in [place] which is outside of [employer]. Pt does not feel that he can afford to pay [employer] for this. SN filled med box; pt forgot to have someone cotton picking machine operator the Meclizine from [facility]. He has enough through tom at noon. SN left pt written instructions for putting med in the pill box when obtained. A friend stopped by during this vs to drop off dinner and milk and is willing to cotton picking machine operator for pt tomorrow. See intervention summary for education details. Patient demonstrated a need for further skilled SN services for chronic disease management & education, medication education and safety. Current Discharge plan: self-care RECOMMENDATION: Next visit to focus on (be specific): med mangement, follow up with shoe caser regarding prepackaged meds. documented in this encounter [facility] 08-23-2024 Patient's home Note SITUATION: Halfway routine visit completed today. only patient present [...] pt to follow up with urologist in [place] for further recommendations. SN notes that he has an appt on Sep 11 at 3:[address] Quintana from [facility]. SN instructed pt to contact his office, explain what happened yesterday and get instruction on whether to wait until Sep 11 or should he be seen sooner. Also instructed pt on scheduling transportation for this appt. He reports that he is not sure how to do that. SN will follow up with pt and INSTRUCTIONAL SYSTEMS DESIGNER as this appt is in [place] which is outside of [employer]. Pt does not feel that he can afford to pay [employer] for this. SN filled med box; pt forgot to have someone cotton picking machine operator the Meclizine from [facility]. He has enough through tom at noon. SN left pt written instructions for putting med in the pill box when obtained. A friend stopped by during this vs to drop off dinner and milk and is willing to cotton picking machine operator for pt tomorrow. See intervention summary for education details. Patient demonstrated a need for further skilled SN services for chronic disease management & education, medication education and safety. Current Discharge plan: self-care RECOMMENDATION: Next visit to focus on (be specific): med mangement, follow up with shoe caser regarding prepackaged meds. [facility] Work Phone: 08-22-2024 Note [facility] 08-22-2024 History of Present illness Narrative Images from the original note were not included. [facility] EST[facility]LISHED PATIENT CLINIC NOTE [...] Quintana so he is aware. KARINA Alaniz, NINA, BEVERLY documented in this encounter [facility] 08-21-2024 Telephone encounter Note The following approved medication requests have been transmitted electronically. Requested Prescriptions Pending Prescriptions Disp Refills traZODone (DESYREL) 100 mg tablet 90 tablet 3 Sig: Take 1 tablet by mouth daily at bedtime. Corrie Marinelli APRN.CNP [facility] 08-21-2024 Miscellaneous Notes The following approved medication requests have been transmitted electronically. Requested Prescriptions Pending Prescriptions Disp Refills traZODone (DESYREL) 100 mg tablet 90 tablet 3 Sig: Take 1 tablet by mouth daily at bedtime. Corrie Marinelli APRN.CNP documented in this encounter [facility] 08-18-2024 Miscellaneous Notes 08/18/24 12:56 PM - 1;18 PM INSTRUCTIONAL SYSTEMS DESIGNER received a phone call from the pt. regarding transportation for his appointment with Urology on 08/22/24. The pt. stated he called [employer] and that they were closed today. INSTRUCTIONAL SYSTEMS DESIGNER discussed with the pt. calling [employer] under his [employer]. INSTRUCTIONAL SYSTEMS DESIGNER discussed with the pt. it may be too shor of a notice. INSTRUCTIONAL SYSTEMS DESIGNER stated she could call [employer] with him on a three way call. INSTRUCTIONAL SYSTEMS DESIGNER called [employer] and the pt. was providing his information for scheduling transportation. We were transferred and spoke to Vidal regarding the pt. needed transportation for 08/22/24. She informed us that they need a three day notice and were scheduling trips for 08/23/24. INSTRUCTIONAL SYSTEMS DESIGNER stayed on the phone with the pt. and he stated he would figure something out. INSTRUCTIONAL SYSTEMS DESIGNER informed the pt. that the [facility] provides transportation but he would have to pay for it. The pt. stated he would pay for it and wants to keep his appointment on 08/22/24. INSTRUCTIONAL SYSTEMS DESIGNER called the [facility] and made a three way call with the pt. and we spoke to Jayjay in transportation. INSTRUCTIONAL SYSTEMS DESIGNER stated that the pt. lives in [place] and had a Urology appointment in [place] on 08/22/24. Jayjay stated that they could transport the pt. and asked the pt. if he was in a wheelchair. The pt. stated he would be going by a wheelchair. The pt. provided Jayjay with his name. address, phone number and where his appointment was on 08/22/24. INSTRUCTIONAL SYSTEMS DESIGNER asked Jayjay how much this would cost [...] and Jayjay informed the pt he could. INSTRUCTIONAL SYSTEMS DESIGNER stayed on the phone with the pt. and asked him if he received his Home Delivered Meals today and he stated that he received 5 meals. INSTRUCTIONAL SYSTEMS DESIGNER asked the pt. about having groceries and he stated he was fine. INSTRUCTIONAL SYSTEMS DESIGNER asked the pt. if he had heard from [facility] [employer] [facility] yet and he stated he had not. INSTRUCTIONAL SYSTEMS DESIGNER discussed with the pt. that INSTRUCTIONAL SYSTEMS DESIGNER left him written information when she saw him on [employer] and contact information. The pt. stated he should have it. The pt. stated he found his check book while talking to INSTRUCTIONAL SYSTEMS DESIGNER to pay [employer]. The pt. thanked INSTRUCTIONAL SYSTEMS DESIGNER for her help. INSTRUCTIONAL SYSTEMS DESIGNER informed the pt. to call INSTRUCTIONAL SYSTEMS DESIGNER with any needs. documented in this encounter [facility] 08-18-2024 Patient's home Note 08/18/24 12:56 PM - 1;18 PM INSTRUCTIONAL SYSTEMS DESIGNER received a phone call from the pt. regarding transportation for his appointment with Urology on 08/22/24. The pt. stated he called [employer] and that they were closed today. INSTRUCTIONAL SYSTEMS DESIGNER discussed with the pt. calling [employer] under his [employer]. INSTRUCTIONAL SYSTEMS DESIGNER discussed with the pt. it may be too shor of a notice. MARGARITA stated she could call [employer] with him on a three way call. INSTRUCTIONAL SYSTEMS DESIGNER called [employer] and the pt. was providing his information for scheduling transportation. We were transferred and spoke to Vidal regarding the pt. needed transportation for 08/22/24. She informed us that they need a three day notice and were scheduling trips for 08/23/24. INSTRUCTIONAL SYSTEMS DESIGNER stayed on the phone with the pt. and he stated he would figure something out. INSTRUCTIONAL SYSTEMS DESIGNER informed the pt. that the [place] [employer] provides transportation but he would have to pay for it. The pt. stated he would pay for it and wants to keep his appointment on 08/22/24. INSTRUCTIONAL SYSTEMS DESIGNER called the [employer] [place] and made a three way call with the pt. and we spoke to Jayjay in transportation. MARGARITA stated that the pt. lives in [place] and had a Urology appointment in [place] on 08/22/24. Jayjay stated that they could transport the pt. and asked the pt. if he was in a wheelchair. The pt. stated he would be going by a wheelchair. The pt. provided Jayjay with his name. address, phone number and where his appointment was on 08/22/24. INSTRUCTIONAL SYSTEMS DESIGNER asked Jayjay how much this would cost [...] and Jayjay informed the pt he could. INSTRUCTIONAL SYSTEMS DESIGNER stayed on the phone with the pt. and asked him if he received his Home Delivered Meals today and he stated that he received 5 meals. INSTRUCTIONAL SYSTEMS DESIGNER asked the pt. about having groceries and he stated he was fine. INSTRUCTIONAL SYSTEMS DESIGNER asked the pt. if he had heard from [facility] [employer] [facility] yet and he stated he had not. INSTRUCTIONAL SYSTEMS DESIGNER discussed with the pt. that INSTRUCTIONAL SYSTEMS DESIGNER left him written information when she saw him on [employer] and contact information. The pt. stated he should have it. The pt. stated he found his check book while talking to INSTRUCTIONAL SYSTEMS DESIGNER to pay [employer]. The pt. thanked INSTRUCTIONAL SYSTEMS DESIGNER for her help. INSTRUCTIONAL SYSTEMS DESIGNER informed the pt. to call INSTRUCTIONAL SYSTEMS DESIGNER with any needs. [facility] Work Phone: 08-17-2024 Telephone encounter Note [...] a day with meals. Corrie Marinelli APRN.CNP [facility] 08-17-2024 Miscellaneous Notes The following approved [...] 2024 2:15 PM documented in this encounter [facility] 08-17-2024 Telephone encounter Note Both were filled. [facility] 08-17-2024 Miscellaneous Notes Both were filled. [...] 2024 2:17 PM documented in this encounter [facility] 08-17-2024 Telephone encounter Note Prescription Refill [...] three times a day for 90 days. aLuren Sarmiento LPN August 17, 2024 2:17 PM [facility] 08-17-2024 Telephone encounter Note Prescription Refill [...] Sarmiento LPN August 17, 2024 2:15 PM [facility] 08-17-2024 Telephone encounter Note Pharmacy-Reviewed Medication History Patient Name:Toshia Peralta : 1950 Patient Contact Attempt: First attempt Adherence Packing Program Accepted? Yes, patient wishes to participate. Shelby Sidhu RPh August 17, 2024 2:06 PM [facility] [phone] [facility] 08-17-2024 Miscellaneous Notes Pharmacy-Reviewed Medication History Patient Name:Toshia Peralta : 1950 Patient Contact Attempt: First attempt Adherence Packing Program Accepted? Yes, patient wishes to participate. Shelby Sidhu RPh August 17, 2024 2:06 PM [facility] [phone] documented in this encounter [facility] 08-17-2024 Miscellaneous Notes 08/17/24 12:03 PM The pt. called INSTRUCTIONAL SYSTEMS DESIGNER and did not leave a message. 08/17/24 12:08 PM - 12:11 PM INSTRUCTIONAL SYSTEMS DESIGNER received a phone call from the pt. The pt. stated he was calling about setting up transportation for his appointmen with Urology in [place]. INSTRUCTIONAL SYSTEMS DESIGNER discussed with the pt. calling [employer]. The pt. stated he did not want to use them. INSTRUCTIONAL SYSTEMS DESIGNER educated on [employer] in [place] and the pt. wanted the phone number text to him INSTRUCTIONAL SYSTEMS DESIGNER text the pt. the phone number [phone] for [facility] [employer]. INSTRUCTIONAL SYSTEMS DESIGNER informed the pt. to call INSTRUCTIONAL SYSTEMS DESIGNER with any needs. 08/17/24 12:40 PM - 12:42 PM INSTRUCTIONAL SYSTEMS DESIGNER called the pt. regarding if he was able to call [employer] [place] [employer] and he stated he was exhausted and needed to lay down. He stated he could call INSTRUCTIONAL SYSTEMS DESIGNER later. INSTRUCTIONAL SYSTEMS DESIGNER asked the pt. if he was ok and he stated he was just tired. documented in this encounter [facility] 08-17-2024 Patient's home Note 08/17/24 12:03 PM The pt. called INSTRUCTIONAL SYSTEMS DESIGNER and did not leave a message. 08/17/24 12:08 PM - 12:11 PM INSTRUCTIONAL SYSTEMS DESIGNER received a phone call from the pt. The pt. stated he was calling about setting up transportation for his appointmen with Urology in [place]. INSTRUCTIONAL SYSTEMS DESIGNER discussed with the pt. calling [employer]. The pt. stated he did not want to use them. INSTRUCTIONAL SYSTEMS DESIGNER educated on [facility] [employer] in [place] and the pt. wanted the phone number text to him INSTRUCTIONAL SYSTEMS DESIGNER text the pt. the phone number [phone] for [facility] [employer]. INSTRUCTIONAL SYSTEMS DESIGNER informed the pt. to call INSTRUCTIONAL SYSTEMS DESIGNER with any needs. 08/17/24 12:40 PM - 12:42 PM INSTRUCTIONAL SYSTEMS DESIGNER called the pt. regarding if he was able to call [facility] Transportation and he stated he was exhausted and needed to lay down. He stated he could call INSTRUCTIONAL SYSTEMS DESIGNER later. INSTRUCTIONAL SYSTEMS DESIGNER asked the pt. if he was ok and he stated he was just tired. T [facility] Work Phone: 08-17-2024 Miscellaneous Notes 08/17/24 9:47 AM - 9:51 AM INSTRUCTIONAL SYSTEMS DESIGNER called the pt. regarding him missing his appointment this week with Urology and he stated that the transportation under his insurance did not show up. The pt. stated he just got his phone back on. The pt. stated that he has the phone number to call [employer] to set up transportation for his medical appointments. INSTRUCTIONAL SYSTEMS DESIGNER asked the pt. if he got groceries and he stated he did through the [facility]. The pt. stated he did not get meals delivered last Wednesday but has enough food. The pt. statd she was laying in bed. INSTRUCTIONAL SYSTEMS DESIGNER provided the pt. with her name and phone number to call INSTRUCTIONAL SYSTEMS DESIGNER with any needs. 08/17/24 9:51 AM - 9:54 AM INSTRUCTIONAL SYSTEMS DESIGNER called [facility] [employer] [facility] and spoke to Jyotsna regarding the pt. informed INSTRUCTIONAL SYSTEMS DESIGNER he did not receive his Home Delivered Meals last Wednesday. Jyotsna stated no answer at the door. She stated that they spoke to the pt. and he informed them he was fine until his next meal delivery this Wednesday. documented in this encounter [facility] 08-17-2024 Patient's home Note 08/17/24 9:47 AM - 9:51 AM INSTRUCTIONAL SYSTEMS DESIGNER called the pt. regarding him missing his appointment this week with Urology and he stated that the transportation under his insurance did not show up. The pt. stated he just got his phone back on. The pt. stated that he has the phone number to call [employer] to set up transportation for his medical appointments. INSTRUCTIONAL SYSTEMS DESIGNER asked the pt. if he got groceries and he stated he did through the [facility]. The pt. stated he did not get meals delivered last Wednesday but has enough food. The pt. statd she was laying in bed. INSTRUCTIONAL SYSTEMS DESIGNER provided the pt. with her name and phone number to call INSTRUCTIONAL SYSTEMS DESIGNER with any needs. 08/17/24 9:51 AM - 9:54 AM INSTRUCTIONAL SYSTEMS DESIGNER [facility] and spoke to Jyotsna regarding the pt. informed INSTRUCTIONAL SYSTEMS DESIGNER he did not receive his Home Delivered Meals last Wednesday. Jyotsna stated no answer at the door. She stated that they spoke to the pt. and he informed them he was fine until his next meal delivery this Wednesday. [facility] Work Phone: 08-16-2024 Telephone encounter Note [...] Lopez RN August 16, 2024 4:47 PM [facility] 08-16-2024 Miscellaneous Notes The patient has [...] 2024 4:47 PM documented in this encounter [facility] 08-16-2024 Miscellaneous Notes SITUATION: Halfway routine visit completed today. only patient present [...] with meds as evidenced by the med assistant media planner being appropriately used. Pt does not feel that he is able to fill his own pill assistant media planner. SN did this for pt today and confirmed that the prepackaged meds are in process. Pt reports that he will resume his usual meals on wheels deliveries this Wednesday; He still has adequate food supply that was delivered last Wednesday from [employer]. Urology appt has been rescheduled for 08/22. See intervention summary for education details. Patient demonstrated a need for further skilled SN services for chronic disease management & education, medication education, safety and urinary catheter care. Current Discharge plan: self-care RECOMMENDATION: Next visit to focus on (be specific): med management will be focus until pre packaged meds are in place. documented in this encounter [facility] 08-16-2024 Patient's home Note SITUATION: Halfway routine visit completed today. only patient present [...] with meds as evidenced by the med assistant media planner being appropriately used. Pt does not feel that he is able to fill his own pill assistant media planner. SN did this for pt today and confirmed that the prepackaged meds are in process. Pt reports that he will resume his usual meals on wheels deliveries this Wednesday; He still has adequate food supply that was delivered last Wednesday from [employer]. Urology appt has been rescheduled for 08/22. See intervention summary for education details. Patient demonstrated a need for further skilled SN services for chronic disease management & education, medication education, safety and urinary catheter care. Current Discharge plan: self-care RECOMMENDATION: Next visit to focus on (be specific): med management will be focus until pre packaged meds are in place. [facility] Work Phone: 08-16-2024 Miscellaneous Notes SITUATION: [...] or reason for Home Care: admission to [facility] on 07/25/24-07/26/2024. Disciplines ordered: SN, PT, OT, and RAYON TESTER Primary Diagnoses (reason for Home Care): Benign [...] SPECIFIC ORDERS: - Indwelling Urinary Catheter 07/25/24 [facility] 3-way Catheter 24 Fr ASSESSMENT: Focus [...] a discharge visit. documented in this encounter [facility] 08-16-2024 Patient's home Note SITUATION: Pt. [...] or reason for Home Care: admission to [facility] on 07/25/24-07/26/2024. Disciplines ordered: SN, PT, OT, and RAYON TESTER Primary Diagnoses (reason for Home Care): Benign [...] SPECIFIC ORDERS: - Indwelling Urinary Catheter 07/25/24 [facility] 3-way Catheter 24 Fr ASSESSMENT: Focus [...] next by OTR/L for a discharge visit. [facility] Work Phone: 08-15-2024 Miscellaneous Notes SITUATION: [...] to continue to come and walk him. WRAPPER DIPPER made a referral for [employer] for a RAYON TESTER . Advised him that a RAYON TESTER could walk with him daily . Will [...] for intervention/education details. documented in this encounter [facility] 08-15-2024 Patient's home Note SITUATION: only [...] to continue to come and walk him. WRAPPER DIPPER made a referral for [employer] for a RAYON TESTER . Advised him that a RAYON TESTER could walk with him daily . Will [...] able See intervention summary for intervention/education details. [facility] Work Phone: 08-11-2024 Miscellaneous Notes SITUATION: Halfway routine visit completed today. only patient present [...] and denies any falls. He reports that [facility] was not able to take him to the bank or grocery store yesterday but they were able to do a one time shopping trip for him on a special program that he did not have to pay for. He states that he got a call from [employer] and they could not deliver today but will next week. Pt is thankful that [facility] came through for him as he will [...] check, urinary management. documented in this encounter [facility] 08-11-2024 Patient's home Note SITUATION: Halfway routine visit completed today. only patient present [...] and denies any falls. He reports that [facility] was not able to take him to the bank or grocery store yesterday but they were able to do a one time shopping trip for him on a special program that he did not have to pay for. He states that he got a call from [employer] and they could not deliver today but will next week. Pt is thankful that [facility] came through for him as he will [...] fill pill box, CP check, urinary management. [facility] Work Phone: 08-09-2024 Note Addended by: ABENA BECKFORD on: 08/09/2024 03:43 PM Modules accepted: Orders [facility] 08-09-2024 Miscellaneous Notes Addended by: ABENA BECKFORD on: 08/09/2024 03:43 PM Modules accepted: Orders Referral placed. Please let me know if this is not the correct referral, as this was the closest thing I could find. 08/09/24 The patient would like a referral to [facility] to get his medicine prepackaged. INSTRUCTIONAL SYSTEMS DESIGNER has spoke to [facility] and they saw the patient. Referral made to the [facility] for the patient to get his groceries delivered. INSTRUCTIONAL SYSTEMS DESIGNER made a referral to [facility]. INSTRUCTIONAL SYSTEMS DESIGNER assisted the patient to set up transportation under [employer] for his appointment 08/15/24 with Urology. Thank You, documented in this encounter [facility] 08-09-2024 Telephone encounter Note Referral placed. Please let me know if this is not the correct referral, as this was the closest thing I could find. [facility] 08-09-2024 Telephone encounter Note 08/09/24 The patient would like a referral to [facility] to get his medicine prepackaged. INSTRUCTIONAL SYSTEMS DESIGNER has spoke to [facility] and they saw the patient. Referral made to the [facility] [place] for the patient to get his groceries delivered. INSTRUCTIONAL SYSTEMS DESIGNER made a referral to [facility]. INSTRUCTIONAL SYSTEMS DESIGNER assisted the patient to set up transportation under [employer] for his appointment 08/15/24 with Urology. Thank You, T [facility] Work Phone: 08-09-2024 Miscellaneous Notes 08/09/24 INSTRUCTIONAL SYSTEMS DESIGNER received a message from Eugene Uriarte RN Case Manager regarding the pt. getting his meds prepacakged through [facility]. INSTRUCTIONAL SYSTEMS DESIGNER informed Dione that when INSTRUCTIONAL SYSTEMS DESIGNER saw the pt. he did not want prepacakged meds. He stated he receives his meds in the mail. 08/09/24 2:26 PM - 2:30 PM INSTRUCTIONAL SYSTEMS DESIGNER called the pt. regarding how he was doing and he stated he was not feeling as well today. INSTRUCTIONAL SYSTEMS DESIGNER discussed with the pt. regarding getting his meds prepackaged and sent to him and the pt. supportive of this. INSTRUCTIONAL SYSTEMS DESIGNER asked the pt. about his food and he stated he has enough food. INSTRUCTIONAL SYSTEMS DESIGNER asked the pt. if he had heard from the [facility] and he stated he did and someone was out to see him. He stated he is to get food delivered in August. INSTRUCTIONAL SYSTEMS DESIGNER asked the pt. if he had ever heard from [facility] and he stated that he has not. INSTRUCTIONAL SYSTEMS DESIGNER educated the pt. that INSTRUCTIONAL SYSTEMS DESIGNER could make a referral to see if he was eligible for possibly Care Coordination for an Aide. The pt. supportive for INSTRUCTIONAL SYSTEMS DESIGNER to make a referral to [facility] on A[facility] & Disabilities. INSTRUCTIONAL SYSTEMS DESIGNER informed the pt. that he would have to go to Social Security or get online to get a new social security card. The pt. stated he would have to look into. INSTRUCTIONAL SYSTEMS DESIGNER asked the pt. if he wanted INSTRUCTIONAL SYSTEMS DESIGNER to talk to honeyjonathanvangie and he stated not at this time. He stated he was resting. INSTRUCTIONAL SYSTEMS DESIGNER stated she would continue to follow-up. 08/09/24 2:38 PM - 2:44 PM INSTRUCTIONAL SYSTEMS DESIGNER called the [facility] in [place] and spoke to Becky regarding if someone was out to see the pt. regardind delivering food. Becky stated that they have a Ashleigh and that Ar in [facility] may have went and saw the pt. She stated she was over the Adult [facility] and could call INSTRUCTIONAL SYSTEMS DESIGNER back regarding this. Becky stated that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 Norma Porter [facility] 07-17-2024 Telephone encounter Note ----- Message from Vicente Quintana MD sent at 07/14/2024 11:32 AM EDT ----- 2 different antibiotics sent to his pharmacy. I would like him to start both prescriptions about 4 to 5 days prior to his surgery [facility] 07-17-2024 Miscellaneous Notes Pt notified. Norma Porter ----- Message from Vicente Quintana MD sent at 07/14/2024 11:32 AM EDT ----- 2 different antibiotics sent to his pharmacy. I would like him to start both prescriptions about 4 to 5 days prior to his surgery documented in this encounter [facility] 07-14-2024 Telephone encounter Note Patient was made aware of the results. Patient verbalizes understanding. Yudy Nelson Ma [facility] 07-14-2024 Miscellaneous Notes Patient was made aware of the results. Patient verbalizes understanding. Yudy Nelson Ma ----- Message from Corrie Marinelli sent at 07/14/2024 9:27 AM EDT ----- Kidney function remains moderately weakened. Remember to drink 64 ounces of water daily to flush your kidneys. documented in this encounter [facility] 07-14-2024 Telephone encounter Note ----- Message from Corrie Marinelli sent at 07/14/2024 9:27 AM EDT ----- Kidney function remains moderately weakened. Remember to drink 64 ounces of water daily to flush your kidneys. [facility] 07-11-2024 Telephone encounter Note Pt is scheduled for Cysto, Aquablation, hancock with Dr Quintana at [facility] on 07/25/24 @ 2:00 (12:00 arrival). Pt to do labs on 07/10/24. Postop appointments scheduled also, reminders mailed to pt's home. Pt given date, time, prep and arrival instructions in person on 07/10/24. Written info given also. Norma Porter [facility] 07-11-2024 Miscellaneous Notes Pt is scheduled for Cysto, Aquablation, hancock with Dr Quintana at [facility] on 07/25/24 @ 2:00 (12:00 arrival). Pt to do labs on 07/10/24. Postop appointments scheduled also, reminders mailed to pt's home. Pt given date, time, prep and arrival instructions in person on 07/10/24. Written info given also. Norma Porter documented in this encounter [facility] 07-10-2024 Instructions Abena Beckford APRN.CNP - 07/10/2024 3:26 PM EDT Continue the same medication. Get labs. Recheck in 3 months. documented in this encounter [facility] 07-10-2024 Note [facility] 07-10-2024 History of Present illness Narrative This [...] No date: Insomnia, unspecified 11/22/1986: Leukocytosis Comment: [facility] admission - thought leukemia and he refused [...] as needed for worsening/no improvement. Abena Beckford APRN.TRANSPORTATION DISPATCH MANAGER documented in this encounter [facility] 07-10-2024 History of Present illness Narrative [...] Date Value 12/28/2023 Negative 01/05/2019 Negative Specific [place], Ur (no units) Date Value 12/28/2023 1.013 [...] , LWK , LUSUL in the last 70733 hours. REVIEW OF SYSTEMS Review of Systems [...] 1 - N/A documented in this encounter [facility] 07-10-2024 Note HNO ID: [id number] Author: VICENTE QUINTANA MD Service: ? Author [...] Date Value 12/28/2023 Negative 01/05/2019 Negative Specific [place], Ur (no units) Date Value 12/28/2023 1.013 [...] , LWK , LUSUL in the last 95765 hours. REVIEW OF SYSTEMS Review of Systems [...] Drug use: Not (more content not included)... [facility] 07-10-2024 Nurse Note Coverstitch Binder present: Shelby Lyons MA [facility] 07-10-2024 Nurse Note Coverstitch Binder present: Shelby Lyons MA documented in this encounter [facility] 07-10-2024 Note HNO ID: [id number] Author: VICENTE QUINTANA MD Service: ? Author Type: Physician Type: Procedures Filed: 07/10/2024 11:07 Note Text: CYSTOSCOPY and TRUS PROCEDURE NOTE: Miroslava Peralta is a 73 year old male who presents with BPH, retention for cystoscopy. Pt ID verified with patient: Yes Procedure verified with patient: Yes Procedure confirmed with physician and behavior support specialist: Yes UNIVERSAL PROTOCOL / SAFETY CHECKLIST Procedure [...] ICD10: N13.30 See note Vicente Quintana M.D. [facility] 07-10-2024 Procedure note Procedure(s): CYSTOURETHROSCOPY; US, TRANSRECTAL Pre-Procedure Diagnose(s): Urine retention; Hypertrophy of prostate with urinary obstruction Post-Procedure Diagnose(s): Urine retention; Hypertrophy of prostate with urinary obstruction CYSTOSCOPY and TRUS PROCEDURE NOTE: Miroslava Peralta is a 73 year old male who presents with BPH, retention for cystoscopy. Pt ID verified with patient: Yes Procedure verified with patient: Yes Procedure confirmed with physician and behavior support specialist: Yes UNIVERSAL PROTOCOL / SAFETY CHECKLIST Procedure [...] ICD10: N13.30 See note Vicente Quintana M.D. [facility] 07-10-2024 Procedure note Procedure(s): CYSTOURETHROSCOPY; US, [...] patient: Yes Procedure confirmed with physician and behavior support specialist: Yes UNIVERSAL PROTOCOL / SAFETY CHECKLIST Procedure [...] Vicente Quintana M.D. documented in this encounter [facility] 07-04-2024 Note [facility] 07-04-2024 History of Present illness Narrative CC [...] Pamela Rashid LPN documented in this encounter [facility] 06-21-2024 Telephone encounter Note agree [facility] Work Phone: 06-21-2024 Miscellaneous Notes agree [...] to the ER. documented in this encounter [facility] 06-21-2024 Telephone encounter Note Patient calling [...] caregiver to take him to the ER. [facility] 05-30-2024 History of Present illness Narrative [...] complaint patient is being sent back to [facility] which is the facility that placed the catheter initially. Patient is okay with this care plan and caregiver is going to take him. documented in this encounter [facility] 05-30-2024 Note [facility] 05-01-2024 Telephone encounter Note Noted. Bharathi Wiggins APRN.CNP, DNP [facility] 05-01-2024 Miscellaneous Notes Noted. Bharathi Wiggins [...] during the appt. I am only at [place] on every other Wednesday. Bharathi Wiggins DNP, MYRA Department of Urology [facility] Should not be a problem for hancock to be changed here at [place] as a nurse visit. Will have Luis Alfredo Wiggins NP confirm and give orders for the 20 Fr Coude to be changed monthly. Orders pended. Please file if appropriate. Zita Mobley MA Spoke with patient to let him know that his [facility] states he is too complex with a 20 filipino coude catheter to be done in home setting with [facility] anymore. Ray RN from [facility] did inform patient and I did too. I asked if he wanted to attempt to have another [facility] service accommodate patient at home, or if he can get transportation to the [place] office to get changed monthly. He says he cannot get ride to [place], but hoping to get ride to the [place] office. Has seen Luis Alfredo Wiggins as well. Can patient get monthly hancock cath change in [facility]? Needs at the end of April, new 20 filipino coude draining well with no problems. [facility] discharging patient from there service for monthly cath change as doing a 20 filipino hancock change too complex for them. Attempting to call patient to set up, voicemail full. Will try again. FYI: Ray with [facility] called to let you know pt was scheduled for a recert visit on 05/09/24 for monthly cath change visits. Ray reports this is going to be cancelled for 05/09/24 and will have a visit this week to d/c from . REASON: pt had a 16- to 18 fFench cath and was seen by Urology and this was changed to 20 [place] Coude cath. Pt has become to complex for [facility] and being d/c and is to follow with the urologist monthly for cath changes.. No call back needed. Zita Palmer LPN documented in this encounter [facility] 05-01-2024 Telephone encounter Note Called Jocelin- patient needs to have hancock catheter changed with nurse. Scheduled appointment. Per Jocelin she will convey appointment details to patient. States that patient likes to have the hancock catheter despite it being initially a short-term fix. Pamela Rashid LPN [facility] 04-27-2024 Telephone encounter Note See Bharathi Wiggins message below, can we accommodate patient on his schedule? Order pended. Thanks. That is fine. You can schedule the patient for a follow up with and Shira and do the cath change during the appt. I am only at [place] on every other Wednesday. Bharathi Wiggins DNP, TRANSPORTATION DISPATCH MANAGER Department of Urology [facility] 04-25-2024 Telephone encounter Note Should not be a problem for hancock to be changed here at [place] as a nurse visit. Will have Luis Alfredo Wiggins NP confirm and give orders for the 20 Fr Coude to be changed monthly. Orders pended. Please file if appropriate. Zita Mobley MA [facility] 04-25-2024 Telephone encounter Note Spoke with patient to let him know that his [facility] states he is too complex with a 20 filipino coude catheter to be done in home setting with [facility] anymore. Ray GAMBINO from [facility] did inform patient and I did too. I asked if he wanted to attempt to have another [facility] service accommodate patient at home, or if he can get transportation to the [place] office to get changed monthly. He says he cannot get ride to [place], but hoping to get ride to the [place] office. Has seen Luis Alfredo Wiggins as well. Can patient get monthly hancock cath change in [facility]? Needs at the end of April, new 20 filipino coude draining well with no problems. [facility] 04-25-2024 Telephone encounter Note [facility] discharging patient from there service for monthly cath change as doing a 20 filipino hancock change too complex for them. Attempting to call patient to set up, voicemail full. Will try again. [facility] 04-25-2024 Telephone encounter Note FYI: Ray with [facility] called to let you know pt was scheduled for a recert visit on 05/09/24 for monthly cath change visits. Ray reports this is going to be cancelled for 05/09/24 and will have a visit this week to d/c from . REASON: pt had a 16- to 18 fFench cath and was seen by Urology and this was changed to 20 Jordanian Coude cath. Pt has become to complex for [facility] and being d/c and is to follow with the urologist monthly for cath changes.. No call back needed. Zita Palmer LPN [facility] 04-21-2024 Telephone encounter Note Patient's [facility] RN Ray calling from [facility] and needs to make sure OK to continue the monthly changes at home since now he is a 20 filipino coude. I advised OK to continue to change at home. He needed the orders to continue the 20 filipino coude. Generated an order that will be scanned into [employer]. Also OV notes. Faxed it to [facility] at , fax confirmation received. [facility] 04-21-2024 Miscellaneous Notes Patient's [facility] RN Ray calling from [facility] and needs to make sure OK to continue the monthly changes at home since now he is a 20 filipino coude. I advised OK to continue to change at home. He needed the orders to continue the 20 filipino coude. Generated an order that will be scanned into [employer]. Also OV notes. Faxed it to [facility] at , fax confirmation received. documented in this encounter [facility] 04-19-2024 Telephone encounter Note Please see if the patient can get in sooner with Dr. Mable Quintana to discuss surgery. He currently has a hancock catheter in place and is unable to wait until August for a visit Also please cancel the visit with Luis Alfredo Wiggins on 05/10 [facility] 04-19-2024 Miscellaneous Notes Please see if the patient can get in sooner with Dr. Mable Quintana to discuss surgery. He currently has a hancock catheter in place and is unable to wait until August for a visit Also please cancel the visit with Luis Alfredo Wiggins on 05/10 documented in this encounter [facility] 04-19-2024 Note [facility] 04-19-2024 History of Present illness Narrative Miroslava [...] on 02/19/2024 showed tri lobar enlargement, discussed NICHELLE, greenlight laser PVP. Presents today for heavy sediment in his catheter tube, he was taught how to flush at home but has not done on his own yet. [facility] catheter changes Denies fever, chills. Catheter was [...] unspecified hydronephrosis type Insomnia, unspecified Leukocytosis 11/22/1986 [facility] admission - thought leukemia and he refused [...] with staff to discuss surgery. Saskia Sears APRN.CNP documented in this encounter [facility] 04-18-2024 Telephone encounter Note Scheduled with Saskia Sears at [place] tomorrow at 10:40am Pt aware. Transportation will let us know if that is an issue. Zita Mobley MA [facility] 04-18-2024 Miscellaneous Notes Scheduled with Saskia Sears at [place] tomorrow at 10:40am Pt aware. Transportation will let us know if that is an issue. Zita Mobley MA Message about the work in appt did not reach us until this afternoon. Call placed to Ray at [facility]. Pt was previously doing ISC. He is [...] in the last 11 days. Lives alone. [facility] only doing catheter care, no other services. Appt offered in [place] tomorrow with Saskia Sears or with Dany Gomez next Wednesday here in [place]. Ray will contact the patients transportation and see when they can bring him. Await response. Zita Mobley MA Multiple attempts to reach urology nursing via phone today to see if patient can added on today locally. Will send this note to nursing and Dany. Cecily Johnson MA Needs scheduled Wednesday with Dany Gomez in [place] or Saskia Sears in [place] per message from Bharathi Wiggins on Wednesday. IMMANUEL Campos from [facility] calling, patient has a hancock catheter that they have changed 3 times in the last 11 days along with several other cath bag changes due to the amount of sediment in the bag. Today DRIVER LICENSE EXAMINER that changed catheter called Andres to report that patient had a cath blockage and she changed it again. She reported that she had never seen so much sediment in a bag before. Patient is scheduled to see Luis Alfredo Wiggins in mid April but Andres feels that patient needs to be seen sooner if possible. Please advise. documented in this encounter [facility] 04-18-2024 Telephone encounter Note Message about the work in appt did not reach us until this afternoon. Call placed to Ray at [facility]. Pt was previously doing ISC. He is [...] in the last 11 days. Lives alone. [facility] only doing catheter care, no other services. Appt offered in [place] tomorrow with Saskia Sears or with Dany Gomez next Wednesday here in [place]. Ray will contact the patients transportation and see when they can bring him. Await response. Zita Mobley MA [facility] 04-18-2024 Telephone encounter Note Multiple attempts to reach urology nursing via phone today to see if patient can added on today locally. Will send this note to nursing and Dany. Cecily Johnson MA [facility] 04-17-2024 Telephone encounter Note Needs scheduled Wednesday with Dany Gomez in [place] or Saskia Sears in [place] per message from Bharathi Wiggins on Wednesday. [facility] Work Phone: 04-14-2024 Telephone encounter Note IMMANUEL Campos from [facility] HH calling, patient has a hancock catheter that they have changed 3 times in the last 11 days along with several other cath bag changes due to the amount of sediment in the bag. Today DRIVER LICENSE EXAMINER that changed catheter called Andres to report that patient had a cath blockage and she changed it again. She reported that she had never seen so much sediment in a bag before. Patient is scheduled to see Luis Alfredo Wiggins in mid April but Andres feels that patient needs to be seen sooner if possible. Please advise. [facility] 04-13-2024 Telephone encounter Note Left message to approve. [facility] 04-13-2024 Miscellaneous Notes Left message to approve. Reviewed and approve. Thanks, Duong Zaidi PA-C Mone GAMBINO with [facility] calls to report patient was seen for eval for chronic catheter needs and will be due for a catheter change in a month and requesting orders for a SN visit for catheter change in 1 month and a prn visit in case of catheter complications. Mone requests call back at [phone] with verbal orders. Please review and advise, Licha Carcamo RN documented in this encounter [facility] 04-13-2024 Telephone encounter Note Reviewed and approve. Thanks, Duong Zaidi PA-C [facility] 04-12-2024 Telephone encounter Note Marjan PT @ [facility] calling to let provider know patient was seen today for recertification and with Physical Therapy plan of care. PT will see patient 2 x/week for two weeks and 1 x/week for one week for lower extremity strengthening, balance and gait training. If agree, no need to call back. Krysta Lopez RN [facility] 04-12-2024 Miscellaneous Notes Marjan PT @ [facility] calling to let provider know patient was seen today for recertification and with Physical Therapy plan of care. PT will see patient 2 x/week for two weeks and 1 x/week for one week for lower extremity strengthening, balance and gait training. If agree, no need to call back. Krysta Lopez RN documented in this encounter [facility] 04-12-2024 Telephone encounter Note Mone GAMBINO with [facility] calls to report patient was seen for eval for chronic catheter needs and will be due for a catheter change in a month and requesting orders for a SN visit for catheter change in 1 month and a prn visit in case of catheter complications. Mone requests call back at [phone] with verbal orders. Please review and advise, Licha Carcamo RN [facility] 04-10-2024 Instructions Marbella Zaiid PA-C - 04/10/2024 2:43 PM EDT Try pouch underwear to lift tresticles. documented in this encounter [facility] 04-10-2024 History of Present illness Narrative [...] 3. Viral pneumonia unspecified 02/17/2024 presented to [facility] emergency department complaint of fatigue well for [...] to viral pneumonia. Patient was admitted to [facility] with 1. 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 ([facility]) Encounter for Support and Coordination of Transition of Care At High Risk for Falls Frailty Benign Prostatic Hyperplasia With Incomplete Bladder Emptying Overflow Incontinence of Urine Waldenstrom Macroglobulinemia ([facility]) Current Outpatient Medications Medication Sig Dispense Refill [...] Marbella Zaidi PA-C documented in this encounter [facility] 04-10-2024 Note [facility] 04-06-2024 Telephone encounter Note Left detailed message on Andres the [facility] RN secured voicemail, for approval. Left message for patient to return call. Patient does have an appointment 04/10/2024 [facility] 04-06-2024 Miscellaneous Notes Left detailed message on Andres the [facility] RN secured voicemail, for approval. Left message for patient to return call. Patient does have an appointment 04/10/2024 Culture demonstrated Proteus. Unless symptomatic with urinary pain, burning, fever I would still say it is colonization from repeated self cath and later hancock insertion. Please let me kow if symptomatic. Thanks, Duong Zaidi PA-C External Lab [[id number]] Final culture results. Please review. I approve. Thanks, Duong Zaidi PA-C Andres GAMBINO [facility] HH called and is notified of providers [...] not included. UA result is back from [facility] and in scanned documents awaiting culture. Media Information File Link Scan on 04/04/2024 7:36 PM by Provider, External, PA-C: Miscellaneous Lab documented in this encounter [facility] 04-06-2024 Telephone encounter Note Culture demonstrated Proteus. Unless symptomatic with urinary pain, burning, fever I would still say it is colonization from repeated self cath and later hancock insertion. Please let me kow if symptomatic. Thanks, Duong Zaidi PA-C [facility] 04-06-2024 Telephone encounter Note External Lab [[id number]] Final culture results. Please review. [facility] 04-06-2024 Telephone encounter Note I approve. Thanks, Duong Zaidi PA-C [facility] 04-05-2024 Telephone encounter Note Andres GAMBINO [facility] HH called and is notified of providers [...] through to urology PSS to schedule. Shelby Baker, IMMANUEL [facility] 04-05-2024 Telephone encounter Note Please advise sows no acute UTI, abnormals are r/t colonization from catheter use. Thanks, Duong Zaidi PA-C [facility] 04-05-2024 Telephone encounter Note Images from the original note were not included. UA result is back from [facility] and in scanned documents awaiting culture. Media Information File Link Scan on 04/04/2024 7:36 PM by Provider, [place]: Miscellaneous Lab [facility] 04-04-2024 Telephone encounter Note Orders refaxed to correct lab number of [phone] [facility] 04-04-2024 Miscellaneous Notes Orders refaxed to correct lab number of [phone] Orders signed and faxed to [facility] outpatient lab at [phone] Telephone on 04/04/24 URINALYSIS, REFLEX MICROSCOPIC URINE CULTURE Duong Tineo PA-C Ray from [facility] calling to follow up and see if orders have been faxed for urine. Does not appear they are signed. Yudy Mccrary sent msg to Duong Zaidi to sign. Andres from [facility] Home Health calling he was asset protection manager nurse last night and had to change patient hancock catheter. He said the urine was very bad looking. He collected urine and took it to [facility] Lab at 8 pm. Will need orders faxed to [facility] Lab [phone]. He said lab was going to run the urine since only good for 4 hours and as long as orders are faxed. Pending orders needs diagnosis. Please advise documented in this encounter [facility] 04-04-2024 Telephone encounter Note Orders signed and faxed to [facility] outpatient lab at [phone] [facility] 04-04-2024 Telephone encounter Note Telephone on 04/04/24 URINALYSIS, REFLEX MICROSCOPIC URINE CULTURE Thanks, Duong Zaidi PA-C [facility] 04-04-2024 Telephone encounter Note Ray from [facility] HH calling to follow up and see if orders have been faxed for urine. Does not appear they are signed. Yudy Peters. sent msg to Duong Zaidi to sign. [facility] 04-04-2024 Telephone encounter Note Andres from [facility] Home Health calling he was asset protection manager nurse last night and had to change patient hancock catheter. He said the urine was very bad looking. He collected urine and took it to [facility] Lab at 8 pm. Will need orders faxed to [facility] Lab [phone]. He said lab was going to run the urine since only good for 4 hours and as long as orders are faxed. Pending orders needs diagnosis. Please advise [facility] 03-28-2024 Telephone encounter Note Patient notified. Verbalized understanding. [facility] 03-28-2024 Miscellaneous Notes Patient notified. Verbalized understanding. Ok. Gabapentin renewed. Agree with holding lisinopril. Andres- nurse- [facility] HH- reports patient needs refill sent on [...] for catheter changes. documented in this encounter [facility] 03-28-2024 Telephone encounter Note Ok. Gabapentin renewed. Agree with holding lisinopril. [facility] 03-28-2024 Telephone encounter Note Andres- nurse- [facility] HH- reports patient needs refill sent on [...] decrease to monthly visits for catheter changes. [facility] 03-23-2024 Telephone encounter Note The following approved medication requests have been transmitted electronically. Requested Prescriptions Signed Prescriptions Disp Refills Blood Pressure Monitor 1 Each 0 Si Each once daily. Authorizing Provider: Marbella ZAIDI PA-C [facility] 03-23-2024 Miscellaneous Notes The following approved [...] follow up Duong Tineo PA-C Fidelia from [facility] Health returned call she is an OT. Patient [...] about how patient is feeling. Fidelia with [place] [employer] is calling Marbella Zaidi PA-C today to report patients blood pressure reading from yesterday 03/22 BP 95/69 documented in this encounter [facility] 03-23-2024 Telephone encounter Note Patient notified. Verbalized understanding. States he has no way of taking his BP prior to taking his medication, he does not have a BP cuff. He takes care of his own medication. Patient has a follow up 05/08/2024 at 2:40pm [facility] 03-23-2024 Telephone encounter Note Needs f/u in office- I haven't seen him since d/c from hospital. Hold Lisinopril if SBP < 100mmHg It would hurt to increase a little salt in diet on PT days to hold water in vessels. Please schedule in office follow up Duong Tineo PA-C [facility] 03-23-2024 Telephone encounter Note Fidelia from [facility] [employer] returned call she is an OT. Patient tells her he is weak, light headed, he always has glass of water sitting by him. She is not sure how much fluids he is drinking. Patient will have PT visit later today, not sure of the time. [facility] 03-23-2024 Telephone encounter Note Left message for Fidelia when she calls we need her to please speak with a nurse. Need more information about how patient is feeling. [facility] 03-23-2024 Telephone encounter Note Fidelia with [employer] is calling M Ignacio Zaidi PA-C today to report patients blood pressure reading from yesterday 03/22 BP 95/69 [facility] 03-22-2024 Telephone encounter Note Called patient. [...] was unable to set something else up. [facility] 03-22-2024 Miscellaneous Notes Called patient. Patient [...] a consult with our Urology Surgeons at [place] to see if he is a good candidate for minimally invasive procedure for his BPH. HH last changed Hancock on 03/10. At follow up appt his hancock can be changed out if you can schedule him within the next 3 weeks. Bharathi Wiggins DNP, MYRA Department of Urology [facility] Call to HH nurse. He states that the current hancock has been in since 03/10. Pt would like to keep it in due to keeping him clean and dry and not at fall risk going to the bathroom. PCP gave hancock orders. HH just needs to know if this will most likely be group home, if office will do changes or HHS. Nurse is looking into whether or not insurance will cover cath changes in the home. Jocelin is the neighbor that does all of his errands and makes his appts her number is [phone] if we need to contact her. Zita Mobley MA Team - Yes I can. He missed his follow up appt with me 2 weeks ago. Please call and find out what tpye of catheter they are using and size. Bharathi Wiggins DNP, MYRA Department of Urology [facility] See message below. Pt had cystoscopy done 02/08 and failed voiding trial at that time. Are you willing to give catheter orders for home health? Please review and advise. Zita Mobley MA Pt has been in the [facility] recently. He has a catheter. [facility] Home Health called to ask about catheter care. He did not know if we wanted them to assess and take care of it or if pt should be seen for care here. Ray is the person to reach out to at [phone] Ray also indicates that the Occupational Therapist has stated that pt has an updated phone number as well. Updated and noted to confirm with pt. documented in this encounter [facility] 03-22-2024 Telephone encounter Note Team - [...] a consult with our Urology Surgeons at [place] to see if he is a good candidate for minimally invasive procedure for his BPH. HH last changed Hancock on 03/10. At follow up appt his hancock can be changed out if you can schedule him within the next 3 weeks. Bharathi Wiggins DNP, MYRA Department of Urology [facility] 03-21-2024 Telephone encounter Note Patient notified as well as Jocelin Jiménez. Verbalized understanding. Also left message for Ray GIBSON, to call back to receive message. Patient is scheduled for April with pcp. [facility] 03-21-2024 Miscellaneous Notes Patient notified as well as Jocelin Jiménez. Verbalized understanding. Also left message for [facility], to call back to receive message. Patient is scheduled for April with pcp. If patient has SBP hold PT Please advise patient need to be well hydrated and may need to add some salty foods to maintain blood pressure. I haven't seen him since his discharge. Needs f/u in office. Thanks, Duong Zaidi PA-C Ray with [facility] called to let you know he saw pt this am and pt's blood pressure was 86/56. Pt symptomatic with not feeling well, dizzy and light headed. Andres reports pt's blood pressure has been running low. Ray help pt get in to bed to lay flat to help BP come down. Andres reports [facility] psychiatric social worker supervisor will be seeing pt today at 1pm. Pt has taken his medications and not missed any doses. Pt did take a meclizine also. Please advise pt and Ray if there are further instructions. Zita Palmer LPN documented in this encounter [facility] 03-21-2024 Telephone encounter Note If patient has SBP hold PT Please advise patient need to be well hydrated and may need to add some salty foods to maintain blood pressure. I haven't seen him since his discharge. Needs f/u in office. Thanks, Duong Zaidi PA-C [facility] 03-21-2024 Telephone encounter Note Call to nurse. He states that the current hancock has been in since 03/10. Pt would like to keep it in due to keeping him clean and dry and not at fall risk going to the bathroom. PCP gave hancock orders. HH just needs to know if this will most likely be superintendent terminal, if office will do changes or HHS. Nurse is looking into whether or not insurance will cover cath changes in the home. Jocelin is the neighbor that does all of his errands and makes his appts her number is [phone] if we need to contact her. Zita Mobley MA [facility] 03-21-2024 Telephone encounter Note Ray with [facility] called to let you know he saw pt this am and pt's blood pressure was 86/56. Pt symptomatic with not feeling well, dizzy and light headed. Andres reports pt's blood pressure has been running low. Ray help pt get in to bed to lay flat to help BP come down. Andres reports [facility] psychiatric social worker supervisor will be seeing pt today at 1pm. Pt has taken his medications and not missed any doses. Pt did take a meclizine also. Please advise pt and Ray if there are further instructions. Zita Palmer LPN [facility] 03-21-2024 Telephone encounter Note Team - Yes I can. He missed his follow up appt with me 2 weeks ago. Please call and find out what tpye of catheter they are using and size. Bharathi Wiggins DNP, MYRA Department of Urology [facility] 03-21-2024 Telephone encounter Note See message below. Pt had cystoscopy done 02/08 and failed voiding trial at that time. Are you willing to give catheter orders for home health? Please review and advise. Zita Mobley MA [facility] 03-20-2024 Telephone encounter Note Left detailed message on identifiable voicemail as instructed. [facility] 03-20-2024 Miscellaneous Notes Left detailed message on identifiable voicemail as instructed. Reviewed and approve Duong Tineo PA-C Linnette with [facility] OT calling regarding patient. OT plan of care: OT to see patient 2 times per week for 3 weeks then 1 time for 1 week for transfers, ADLs, safety and home exercises.No call back needed if provider agreeable with plan. Requesting an order for Speech Therapy evaluation for patient due to memory deficit. Please call Linnette with approval of order at [phone]. May leave a detailed message on this secure line. Thank you. documented in this encounter [facility] 03-20-2024 Telephone encounter Note Reviewed and approve Duong Tineo PA-C [facility] 03-20-2024 Telephone encounter Note Linnette with [facility] OT calling regarding patient. OT plan of care: OT to see patient 2 times per week for 3 weeks then 1 time for 1 week for transfers, ADLs, safety and home exercises.No call back needed if provider agreeable with plan. Requesting an order for Speech Therapy evaluation for patient due to memory deficit. Please call Linnette with approval of order at [phone]. May leave a detailed message on this secure line. Thank you. [facility] 03-20-2024 Telephone encounter Note Pt has been in the [facility] recently. He has a catheter. [facility] Home Health called to ask about catheter care. He did not know if we wanted them to assess and take care of it or if pt should be seen for care here. Ray is the person to reach out to at [phone] Ray also indicates that the Occupational Therapist has stated that pt has an updated phone number as well. Updated and noted to confirm with pt. [facility] Work Phone: 03-17-2024 Telephone encounter Note Left detailed message on confidential vm Karis Larson MA [facility] 03-17-2024 Miscellaneous Notes Left detailed message on confidential vm Karis Larson MA Agree with psychiatric social worker supervisor involvement. Kate from [facility] Home Health Social Work calling asking for verbal order for one social work visit weekly for 2 weeks please. Please advise documented in this encounter [facility] 03-17-2024 Telephone encounter Note Spoke to Jocelin and she was notified Karis Larson MA [facility] 04-26-2024 Miscellaneous Notes Spoke to Jocelin and she was notified Karis Larson MA Please let patient know that his chronic anemia is improving. Hemoglobin up to 12.1. Kidney function liver function and electrolytes and thyroid all look normal. His albumin level is a little low. Please try to incorporate more protein into his diet even if he needs to get a supplement such as Homer breakfast drink, whey protein, peanut butter. Patient did ask that we call Nicole with results. [phone] documented in this encounter [facility] 03-17-2024 Telephone encounter Note Please let patient know that his chronic anemia is improving. Hemoglobin up to 12.1. Kidney function liver function and electrolytes and thyroid all look normal. His albumin level is a little low. Please try to incorporate more protein into his diet even if he needs to get a supplement such as Homer breakfast drink, whey protein, peanut butter. Patient did ask that we call Nicole with results. [phone] [facility] 03-17-2024 Telephone encounter Note Agree with psychiatric social worker supervisor involvement. [facility] 03-16-2024 Telephone encounter Note Kate from [facility] Home Health Social Work calling asking for verbal order for one social work visit weekly for 2 weeks please. Please advise [facility] 03-16-2024 Telephone encounter Note Carly notified with [facility] 03-16-2024 Miscellaneous Notes Carly notified with [facility] I agree and approve Duong Tineo PA-C Carly - [facility]- asking for OT eval, delay of care due to scheduling, verbal approval. Please phone verbal to [phone] documented in this encounter [facility] 03-16-2024 Telephone encounter Note I agree and approve Duong Tineo PA-C [facility] 03-16-2024 Telephone encounter Note Carly - [facility] HH- asking for OT eval, delay of care due to scheduling, verbal approval. Please phone verbal to [phone] [facility] 03-15-2024 Telephone encounter Note Spoke to Ray and gave provider message below Karis Larson MA [facility] 03-15-2024 Miscellaneous Notes Spoke to Ray [...] the other meds. See below. Andres from [facility] Health calling to ask if this was addressed? He is asking for verbal order for Social Work. Patient is having problems getting meals and transportation. Patient is taking old rx for Naproxen he has at home for pain, asking if patient should be taking Naproxen? Please advise Rachel nurse from [facility] called back on looking for answers.. Please go all the way to the bottom of notes to see from nurse Rachel needs answers for her questions. DEBRAI-Saw Christy on 03/13/24 and trazodone was increased to 100mg. See below message regarding the Naproxen and the drug interactions. Zita Palmer LPN Yes, I will Thanks, Duong Zaidi PA-C 1) Winifred matamoros nurse with [facility] calls today to report pt states he is having trouble getting meals and transportation so Winifred is asking for a VO for SW to see pt. OK to call office with VO: [phone]. 2) Winifred is also asking about Naproxen that pt is taking. As per message below. Asking for a new rx if pt is supposed to be taking or let her know if he is not to be taking Naproxen. Ok to call Winifred or office with pcp message. Melody Urbano LPN Rachel with [facility] calling to let you know she admitted [...] Zita Palmer LPN documented in this encounter [facility] 03-15-2024 Telephone encounter Note Without knowing [...] use all the other meds. See below. [facility] Work Phone: 03-15-2024 Telephone encounter Note Andres from [facility] Home Health calling to ask if this was addressed? He is asking for verbal order for Social Work. Patient is having problems getting meals and transportation. Patient is taking old rx for Naproxen he has at home for pain, asking if patient should be taking Naproxen? Please advise [facility] 03-15-2024 Telephone encounter Note Rachel nurse from [facility] called back on looking for answers.. Please go all the way to the bottom of notes to see from nurse Rachel needs answers for her questions. [facility] 03-15-2024 Telephone encounter Note Reviewed and approve Duong Tineo PA-C [facility] 03-15-2024 Miscellaneous Notes Reviewed and approve Duong Tineo PA-C Marjan from [facility] Home Health calling with PT plan of care, 2 visits weekly for 4 weeks. Working on lower extremity strengthening, gait and transfer training, balance and endurance. documented in this encounter [facility] 03-15-2024 Telephone encounter Note Marjan from [facility] Home Health calling with PT plan of care, 2 visits weekly for 4 weeks. Working on lower extremity strengthening, gait and transfer training, balance and endurance. [facility] 03-15-2024 Telephone encounter Note FYI-Saw Christy on 03/13/24 and trazodone was increased to 100mg. [facility] 03-15-2024 Telephone encounter Note See below message regarding the Naproxen and the drug interactions. Zita Palmer LPN [facility] 03-14-2024 Telephone encounter Note Yes, I will Thanks, Duong Zaidi PA-C [facility] 03-14-2024 Telephone encounter Note 1) Winifred a nurse with [facility] HH calls today to report pt states he is having trouble getting meals and transportation so Winifred is asking for a VO for SW to see pt. OK to call office with VO: [phone]. 2) Winifred is also asking about Naproxen that pt is taking. As per message below. Asking for a new rx if pt is supposed to be taking or let her know if he is not to be taking Naproxen. Ok to call Winifred or office with pcp message. Melody Urbano LPN [facility] 03-13-2024 Instructions Corrie Marinelli APRN.LORRY WEIGHER - 03/13/2024 2:39 PM EDT 1) Get labs 2) Increase trazodone 100 mg at bedtime 3) Follow up in in April documented in this encounter [facility] 03-13-2024 Note [facility] 03-13-2024 History of Present illness Narrative This is a 73 year old male who presents today with: Patient presents with: Hospital F/U: [facility] d/c 03/10/24 HISTORY OF PRESENT ILLNESS: Miroslava Peralta is a 73 year old male. Patient presents with: Hospital F/U: [facility] d/c 03/10/24 Had UTI, went rehab for [...] unspecified hydronephrosis type Insomnia, unspecified Leukocytosis 11/22/1986 [facility] admission - thought leukemia and he refused [...] Not Currently Comment: Quit drugs in ~. Quit tobacco 30-40 years ago EXAM: BP [...] with the plan. documented in this encounter [facility] 03-13-2024 Telephone encounter Note Rachel with [facility] calling to let you know she admitted [...] up apt today 03-13-24. Zita Palmer LPN [facility] 03-10-2024 Miscellaneous Notes Verbal order given to Marjan and pt is already given. Yudy Nelson MA Ok. Needs hospiital follow up as well with one of the team members for 40 minutes. Marjan from [facility] Home health calling received orders from [facility] TCU for residential, PT/OT. Patient discharging today had UTI, weakness. Asking if Dr Ackerman would follow patient and sign orders? Starting with services on Wednesday03/11/2024. Please advise documented in this encounter [facility] 03-06-2024 History of Present illness Narrative No show for appt. documented in this encounter [facility] 03-06-2024 Note HNO ID: [id number] Author: BHARATHI WIGGINS APRN.RENE RENTERIA Service: ? Author Type: Nurse Practitioner Type: Progress Notes Filed: 03/07/2024 08:55 Note Text: No show for appt. [facility] 03-02-2024 Miscellaneous Notes Patient daughter Ailin called Sw and notes that patient is going to be starting to receive Meals on Wheels, just needs to decide how many days a week patient would like meals delivered to the home.Ailin reports that she just was able to finalize patient home delivered meals, has been having trouble connecting with [employer]. Ailin reports that now, just needs to discuss with patient how many times a week he would like meals delivered. documented in this encounter [facility] 02-24-2024 Note [facility] 02-24-2024 History of Present illness Narrative Contacted patient, He is currently in hospital with severe infection and other health issues. Not interested for now. Will be seeing Dejuan 05-08-24 Monse Guzman COLONOSCOPY PATIENT OUTREACH Action/FYI Colonoscopy Recall Patient identified by Name and : Yes. OUTREACH OUTCOME ACTION: Consult- Telephone Call- Pt is overdue for screening colonoscopy. Pt needs consult due to medical history and/or medications. Please call patient and schedule appointment with General Surgery Provider. Erin Gaines, RN documented in this encounter [facility] 02-24-2024 Note [facility] 02-14-2024 Miscellaneous Notes Patient daughter Ailin called Sw and notes that [employer] Whe[employer] manager rental called her back today and noted that she was sending message to [employer] intake staff to reach out to daughter to arrange home delivered meals. Ailin notes that if she needs more assistance with home delivered meals she will reach out to SW. documented in this encounter [facility] 02-09-2024 Miscellaneous Notes Thank you for the referral of your patient to [facility]. At this time, we are at capacity and are unable to accept your patient. In order to help your patient receive quality home care, we have included reputable agencies that service this area: [facility], Phone number [phone] or [facility], phone number [phone]. Please contact this agency and they will work with your patient to arrange timely services. Thank you, Zeina Abdullahi LPN 02/09/2024 6:08 PM documented in this encounter [facility] 02-09-2024 Nurse Note CYSTOSCOPY PROCEDURE History [...] MYRA Alonzo Ma documented in this encounter [facility] 02-09-2024 Note [facility] 02-09-2024 History of Present illness Narrative Images from the original note were not included. [facility] UROLOGY PROCEDURE NOTE [...] time. Dennis Moore MD, MS Associate Staff Pending Sale To [facility] Cc: Luis Alfredo Wiggins CNP documented in this encounter [facility] 02-08-2024 Miscellaneous Notes Placed orders. I didn't know if there were any other local resources you like. Thanks! Duong You could addend Home Health Order for our [facility] and see if they have availability to accept patient. Rudolph Zacarias, Any suggstions outside [place]. I'm lost hen it comes to what's avaialble. Augusto Watters Carly with [facility] called in and reports they will not be able to accept the Pt as they do not have any availability. documented in this encounter [facility] 02-08-2024 Miscellaneous Notes Sw received message from patient daughter Ailin. Ailin states that she thinks she has figured out the Meals on Wheels. Sw noted that Meals on Wheels is through [facility] [facility]. Ailin notes that she spoke with [...] out, [employer] may be another option. Antonio noted to patient daughter that if she needs further assistance with Meals on Wheels or other home delivered meal options to let this Sw know. Ailin reports that she has spoken with patient about moving to [place] to live with her. Patient has not be open as of yet to moving. Ailin noted that she told patient that if he lives with her there would always be someone around to help patient. Ailin thanked Sw for call and will let ANTONIO and or AMANDO Watters know if patient has any further needs. documented in this encounter [facility] 02-07-2024 Miscellaneous Notes Images from the original note were not included. Marbella Zaidi PA-C P Wstr María Moise Please let him know I placed fasti orders for 3 month follow up Erendira notified, verbalized understanding. documented in this encounter [facility] 02-07-2024 Miscellaneous Notes Spoke with Jocelin [...] Steff Dominguez MA documented in this encounter [facility] 02-04-2024 Miscellaneous Notes Jocelin informed and [...] (compendia): the DRUGDEX Information System and the [facility] Formulary Service Drug Information (AHFS-DI). Trevor has decided that there is no proof in either drug guide that this drug works for your condition. Per Medicare rules, it is not covered. Payer: Trevor [phone] Electronic appeal: Not supported View History Medication Being Authorized testosterone (ANDROGEL) 50 mg / 5 g (1%) Apply 1 Packet as directed once daily for 90 days. Dispense: 150 g Refills: 2 Start: 02/03/2024 End: 05/03/2024 Class: Normal Diagnoses: Hypogonadism in male This order has been released to its destination. To be filled at: [facility] [address] [place] [address] - [address] - [phone] Electronic PA completed for testosterone (ANDROGEL) 50 mg / 5 g (1%) documented in this encounter [facility] 02-03-2024 Miscellaneous Notes Sw was able to be on speaker phone with patient and daughter Ailin. Both Ailin and patient note that they feel like home health services would be helpful with PT services and help with medication set up. Ailin notes that home health was spoken about today when patient was in to see AMANDO Watters. Antonio notes that [facility] is often a first choice for HH services. They have residential, PT/OT, and option for SW to come in to the home. Antonio will send note to AMANDO Watters to let him know that this Sw discussed this information with patient and daughter. Antonio also discussed [facility] [employer] and Ailin took down their number to reach out to [facility] to see about in home assessment to see if patient could receive assistance from Caregiver Support program or Passport through [facility] Agency on Aging. Sw and daughter also discussed [facility] as they provide home care provider assistance. Antonio noted that many home care provider agencies are self pay unless a person [...] asks that Sw call him back tomorrow 02/01 @11am and he can be with patient so that Sw may speak with patient. Antonio notes that she will place appt on calendar to reach out to patient tomorrow at 11am to discuss home care needs. documented in this encounter [facility] 02-03-2024 Note [facility] 02-03-2024 History of Present illness Narrative 73 year old male with c/o Hospital discharge follow-up Facility: [facility] Admission date 01/09/2024 Discharge date 01/12/2024 Admission [...] SARS-CoV-2, influenza, RSV Patient was discharged to [facility], no records currently available. --- Current status; Daughter presents with patient today, anticipating having him move in with her, lives out of state. Indwelling hancock: being removed/ changed next week. Home health Really weak again, out of breath with activity Hard to stand Forgetfulness. No records [facility] Right jaw gets sore from chewing In [...] Lymph 1.00 - 4.00 k/uL 1.48 1.71 [place]% % 9.2 9.3 Abs [place] <0.87 k/uL 0.84 0.82 Eosin% % 5.1 [...] unspecified hydronephrosis type Insomnia, unspecified Leukocytosis 11/22/1986 [facility] admission - thought leukemia and he refused [...] Frailty - ICD9: 797, ICD10: R54 - [facility] 5. At high risk for falls - ICD9: V15.88, ICD10: Z91.81 - [facility] 6. Paresthesia of saddle area: Cauda equina ruled out - ICD9: 782.0, ICD10: R20.2 - [facility] 7. DDD (degenerative disc disease), lumbar - ICD9: 722.52, ICD10: M51.36 Chronic low back pain - [facility] 8. Intractable low back pain - ICD9: 724.2, ICD10: M54.59 - [facility] 9. Chronic vertigo - ICD9: 780.4, ICD10: R42 - [facility] 10. S/P laminectomy - ICD9: V45.89, ICD10: Z98.890 - [facility] 11. MGUS (monoclonal gammopathy of unknown significance) - ICD9: 273.1, ICD10: D47.2 - [facility] 12. Hypogonadism in male - ICD9: [...] Marbella Zaidi PA-C documented in this encounter [facility] 02-03-2024 Telephone encounter Note Phone call placed to patient, emergency contact Jocelin Jiménez and patient's son Singh listed on chart ok to share information. Reviewed with patient's son reported currently seeing Neurologist in [place] , unable to recall name of provider, after treatment of ongoing bladder issues will be having Neurosurgery, requested appointment to be cancelled. Lakeisha Palmer LPN [facility] 02-03-2024 Miscellaneous Notes Phone call placed to patient, emergency contact Jocelin Jiménez and patient's son Singh listed on chart ok to share information. Reviewed with patient's son reported currently seeing Neurologist in [place] , unable to recall name of provider, after treatment of ongoing bladder issues will be having Neurosurgery, requested appointment to be cancelled. Lakeisha Palmer LPN documented in this encounter [facility] 01-31-2024 Instructions Bharathi Wiggins APRN.RENE RENTERIA - 01/31/2024 3:04 PM EDT Schedule Cysto/TRUS ONLY for Tori with our Urology surgeon team. Continue your [...] Wiggins APRN.RENE RENTERIA documented in this encounter [facility] 01-31-2024 History of Present illness Narrative [facility] MALE PATIENT - HISTORY AND PHYSICAL EXAMINATION PATIENT: Miroslava Peralta (73 year old) PCP: BEVERLY Robbins patient of Urology CHIEF COMPLAINT: BPH/LUTS follow up HISTORY OF PRESENT ILLNESS: 73 year old year old male with BPH/LUTS/High PVRs. Singh friend of patient present today. Was previously in [facility]. Now lives in his own apartment. Hx of AUR. Last seen by Dany GOEL in April 2023. Seen by PCP for preop. Noted to have AUR and Hydronephrosis. Takes opioids - chronically. Pending Neck and back surgery. 11 days ago slipped out of his wheel chair and unable to get back up. Was too weak and frail. Went to [facility] ER and was admitted for 2 days. Then was transferred to [facility] for outpatient rehab. When that occurred [...] unspecified hydronephrosis type Insomnia, unspecified Leukocytosis 11/22/1986 [facility] admission - thought leukemia and he refused [...] from right hip replacement Lower thorax: Unremarkable. Publications Sales Representative (topogram) images: Unremarkable. Review of Systems: PAIN [...] which included preparing to see the patient, [id number] patient care, completing clinical documentation, performing a medically appropriate examination, counseling and educating the patient/family/caregiver and ordering medications, tests, or procedures. This note was copied from previous note and exam dated 01/03/24. Author is Bharathi Wiggins APRN.RENE RENTERIA note reviewed and changes have been made or updates noted in the copy & paste portion of an encounter. Bharathi Wiggins DNP, CNP Department of Urology [facility] documented in this encounter [facility] 01-31-2024 Note [facility] 01-12-2024 Miscellaneous Notes Noted. Have patient follow up with fl - Urology after he is discharged from rehab. Bharathi Wiggins DNP, MYRA Department of Urology [facility] Called Singh. Verified name and date of of patient. Informed- Singh states he will make appointment once plan is established. Pamela Rashid LPN Called Singh. Verified name and date of of patient. Singh patients that patient was ISC three times daily, states that went well but patient weakness was getting worse and was falling often. Singh called and patient has been at [facility] since Wednesday. Patient will go to Rehab facility for 20 days. Singh thinks plan is for patient to have hancock cathter for 4-6 weeks but is not certain. Initially plan was for patient to go home last Ron but those plans did change. Pamela Rashid LPN Pts daughter called. Address confirmed and phone number for pt is correct but he often has issues with it. States the contacts Singh and Erendira Dupree help pt here since she is in [place]. Confirmed their numbers are correct in notes as well. Called patients, daughter Ailin. Ailin unable to give two identifiers but will call back. Pamela Rashid LPN Images from the original note were not included. Bharathi Wiggins APRN.MYRA, RENE [facility] Urology Pool 15 hours ago (4:55 PM) Team - Please call patient and get an update. He was supposed to see me today at [facility]. Appears he is admitted at [facility] or at the ER. See what details you can find out. Bharathi Wiggins DNP, MYRA Department of Urology [facility] Number no longer in service. Pamela Rashid LPN Nurse from [facility] called wondering if the patient is under care of a [facility] Urologist. Confirmed patient is seen by Bharathi Wiggins. Patient has been admitted (01/09/2024) for a UTI. documented in this encounter [facility] 01-05-2024 Miscellaneous Notes Spoke with Singh [...] helped improve his kidney function. Abena Beckford APRN.MYRA documented in this encounter [facility] 01-04-2024 Telephone encounter Note Please communicate my apology for being so late yesterday and the inconvenience it caused. Please reschedule as patient able. I refilled highlighted prescriptions. Augusto, Duong Zaidi PA-C [facility] 01-04-2024 Miscellaneous Notes Please communicate my apology for being so late yesterday and the inconvenience it caused. Please reschedule as patient able. I refilled highlighted prescriptions. Thanks, Duong Zaidi PA-C documented in this encounter [facility] 01-04-2024 Nurse Note Patient presents for a PVR to see how he is doing. Patient taken to restroom and voided. Patient then had bladder scan done which revealed 445 ml. Patient then straight cathed himself and got 700 ml residual. Patient given samples and was able to use a coloplast speedy cath soft 16 filipino straight catheter. Patient then instructed to catheterize himself three times a day and a follow up appointment with Bharathi Wiggnis made. Patient instructed to contact office if any issues with voiding or catheterizing arise. Post void bladder scan completed. Patient had 445 ml residual urine. Results reported to Bharathi Wiggins. documented in this encounter [facility] 01-03-2024 Instructions Bharathi Wiggins APRN.RENE RENTERIA - 01/03/2024 4:24 PM EST Intermittent self cath this evening before bed. Go to our [facility] outpatient building: Address: [address] [id number] 6[address] Floor is Urology. Our RN team will perform a PVR on you to check your bladder. Follow up with Bharathi Wiggins APRN.CNP, DNP in 4 weeks Start a trial of [...] Wiggins APRN.RENE RENTERIA documented in this encounter [facility] 01-03-2024 Note [facility] 01-03-2024 History of Present illness Narrative Verified name and date of . CC Post Void Residual HPI: P atcalvin is here now for an appointment with Rosalie Pabon APRN, DNP Procedure: Explained procedure to patient and verbalizes understanding. Performed a PVR. Patient urinated and instructed to empty bladder as much as possible just prior to having PVR done using bladder ultrasound scanner. Results of scan: 787 mL The patient tolerated the procedure well. Plan: Appointment with Bharathi. [facility] MALE PATIENT - HISTORY AND PHYSICAL EXAMINATION PATIENT: Miroslava Peralta (73 year old) 01/03/2024 PCP: Marbella Zaidi PA-C Est patient of Urology CHIEF COMPLAINT: BPH/LUTS HISTORY OF PRESENT ILLNESS: 73 year old year old male with BPH/LUTS/High PVRs. Was previously in [facility]. Now lives in his own apartment. Hx [...] medication--Managed by PCP Insomnia, unspecified Leukocytosis 11/22/1986 [facility] admission - thought leukemia and he refused [...] Not Currently Comment: Quit drugs in ~. FAMILY HISTORY [...] from right hip replacement Lower thorax: Unremarkable. Publications Sales Representative (topogram) images: Unremarkable. Review of Systems: PAIN [...] 2 caps. ISC Nurse visit tomorrow at [facility] for PVR follow up in 2 weeks. [...] which included preparing to see the patient, [id number] patient care, completing clinical documentation, performing a medically appropriate examination, counseling and educating the patient/family/caregiver and ordering medications, tests, or procedures. Consultation requested by Dr. Marbella Zaidi [address] [facility] [id number] for an opinion regarding BPH and my final recommendations will be communicated back to the requesting physician by way of shared Medical record or letter via US mail. Bharathi Wiggins DNP, TRANSPORTATION DISPATCH MANAGER Department of Urology [facility] documented in this encounter [facility] 01-03-2024 Note [facility] 01-03-2024 History of Present illness Narrative 73 year old male left without being seen due to me running behind and he had another health care appointment. Duong Zaidi PA-C documented in this encounter [facility] 01-03-2024 Note [facility] 01-03-2024 Miscellaneous Notes Patient is coming in today to be seen at 1:40. Please remind Don he needs his renal labs completed. Thanks, Duong Zaidi PA-C documented in this encounter [facility] 01-01-2024 Miscellaneous Notes Pts friend called and is notified of providers message. Pt will be seeing Bharathi Wiggins RN CLINICAL RESEARCH on Wednesday as well. Shelby Baker, IMMANUEL Go ahead and keep appt Pts friend Jocelin Jiménez called and is notified of providers results and instructions. She voices understanding. Transferred to scheduled to set up appt with Urology. Please call Jocelin Jiménez if she did not get through to scheduling. Did provider still want Pt to come in to see him on Wednesday. Shelby Baker, RN Ultrasound shows bladder not emptying. (Also with debris). Causing the kidneys to back up. Refer to urology and see if we can get him in soon. Recheck bmp in one week documented in this encounter [facility] 12-31-2023 Miscellaneous Notes Ok. I did [...] had given him. documented in this encounter [facility] 12-31-2023 History of Present illness Narrative [...] PATIENT PRESENTS WITH AN IMPLANTABLE OR ATTACHED ELEMENTARY SCIENCE TEACHER: No RADIOLOGY DEPARTMENT: Ultrasound PERIPHERAL IV DATA: Not applicable SIGNED BY: Radha Kelly RDMS RVT December 31, 2023 11:36 AM documented in this encounter [facility] 12-31-2023 Note [facility] 12-30-2023 Miscellaneous Notes Notified Jocelin Jiménez. The culture was contaminated. I recommend [...] additional labwork at that time. Abena Beckford APRN.TRANSPORTATION DISPATCH MANAGER documented in this encounter [facility] 12-30-2023 Note HNO ID: [id number] Author: EDENILSON CHAUDHRY APRN.MYRA Service: ? Author Type: Nurse Practitioner Type: Progress Notes Filed: 12/30/2023 08:49 Note Text: Summary: update Conry and PCP agree patient needs optimized. Repeat labs were done and his Cre remains elevated, Hgb has dropped to 10.5. He is being delayed for optimization. [facility] 12-27-2023 Note HNO ID: [id number] Author: EDENILSON CHAUDHRY APRN.CNP Service: ? Author Type: Nurse Practitioner Type: Progress Notes Filed: 12/27/2023 15:19 Note Text: Summary: abnormal labs I sent a secure chat to PCP and Allan regarding labs, concerning for MUNA and anemia when labs were completely NML 6 mos ago. [facility] 12-27-2023 Note HNO ID: [id number] Author: BHARATHI ARRIAGA PA-C Service: ? Author [...] medication--Managed by PCP Insomnia, unspecified Leukocytosis 11/22/1986 [facility] admission - thought leukemia and he refused [...] once daily. Dissolv (more content not included)... [facility] 12-27-2023 Note HNO ID: [id number] Author: EDENILSON CHAUDHRY APRN.MYRA Service: ? Author [...] instructions for the morning of your procedure. [facility] 12-27-2023 Miscellaneous Notes Spoke with Friend and scheduled pt for tomorrow Susan continues to ring busy Susan roberts Received fax from Dr Alberto's office requesting surgical clearance for patient. Patient is scheduled for C3-6 laminoplasty on 12/31/23. Attempted to reach pt. Susan busy. Will attempt later. Pt needs to be seen for clearance. documented in this encounter [facility] 12-27-2023 Note HNO ID: [id number] Author: EDENILSON CHAUDHRY APRN.TRANSPORTATION DISPATCH MANAGER Service: ? Author Type: Nurse Practitioner Type: Progress Notes Filed: 12/27/2023 15:19 Note Text: Summary: preanesthesia review We did not get his history yet, but there should be enough to get his history put together. C3-C6 laminoplasty 12/31 Allan (2.5hrs) 73yo male, exsmoker, remote drug and [...] LAD, cannot r/o ant infarct, age ? [facility] 12-20-2023 Note HNO ID: [id number] Author: REMY LEMUS MD Service: ? Author Type: Physician Type: Progress Notes Filed: 12/20/2023 18:39 Note Text: Remy Lemus MD [facility] Orthopaedic Surgery - Orthopaedic Spine Surgeon [address] [facility], [address], [place] [id number] [address] [place] [address], [address] [address] Phone: [phone] ([phone] FAX: [phone] Spine Surgery Outpatient Note Service Date: 12/20/2023 [...] transfusion HTN (hypertension) Insomnia, unspecified Leukocytosis 11/22/1986 [facility] admission - thought leukemia and he refused [...] day with meals. (more content not included)... [facility] 12-17-2023 Note [facility] 12-14-2023 Note HNO ID: [id number] Author: REMY LEMUS MD Service: ? Author Type: Physician Type: Progress Notes Filed: 12/15/2023 21:33 Note Text: Remy Lemus MD [facility] General Orthopaedic Surgery - Orthopaedic Spine Surgeon [address] [facility], [address], [place] [address] [address] [facility] [facility], [address], [place] [id number] Phone: [phone] FAX: [phone] Spine Surgery Outpatient Note Service Date: 12/14/2023 Referring Provider: Gudelia Paul [facility] [address] Chief Complaint: Gait imbalance, bilateral upper and [...] transfusion HTN (hypertension) Insomnia, unspecified Leukocytosis 11/22/1986 [facility] admission - thought leukemia and he refused [...] attack Diovan [Vals (more content not included)... [facility] 12-14-2023 Note HNO ID: [id number] Author: VERO KC MA Service: ? Author Type: Antique Furniture Reproducer Type: Progress Notes Filed: 12/15/2023 21:33 Note Text: REVIEW OF SYSTEMS: GENERAL: dizzy PAIN: Chronic Pain CARDIOVASCULAR: Negative for chest pain, leg swelling and palpations. MSK: Positive for joint swelling SKIN: Negative for lesions, rash, itching, metal sensitivity NEURO: Numbness/tingling of extremties ENDOCRINE: Negative for diabetic associated symptoms HEMATOLOGY: Negative for excessive bleeding, clots, bleeding disorders. [facility] 12-08-2023 Note [facility] 12-01-2023 Note [facility] 11-01-2023 Miscellaneous Notes TC to patient who verbalized understanding. Please contact patient to set up lab appointment for 3 months. Thank you. SONDRA Dumont Left message for patient to return call. Yudy Nelson Ma Images from the original note were not included. Marbella Zaidi PA-C P Wstr María Moise Please let patient know I placed order for Androgel: foolw instructions, labs in 3 months. Thanks, Duong Zaidi PA-C documented in this encounter [facility] 10-28-2023 History of Present illness Narrative [...] transfusion HTN (hypertension) Insomnia, unspecified Leukocytosis 11/22/1986 [facility] admission - thought leukemia and he refused tests Overflow incontinence of urine S/P hip replacement PAST SURGICAL HISTORY Procedure Laterality Date ARTHRP ACETBLR/PROX FEM PROSTC AGRFT/ALGRFT Right 07/25/2014 Hip replacement, total, right COLONOSCOPY 07/16/03 random biopsies negative COLONOSCOPY FLX DX W/COLLJ SPEC WHEN PFRMD 06/27/2013 Colonoscopy JOINT REPLACEMENT HX PAST SURGICAL HISTORY OF 1997 shoulder surgery bilateral PAST SURGICAL HISTORY OF 1998 tendon repair bilat elbows. SKIN BIOPSY HX [...] Marbella Zaidi PA-C documented in this encounter [facility] 10-28-2023 Note [facility] 10-21-2023 Note HNO ID: [id number] Author: Gudelia Samuel MD Service: ? Author [...] transfusion HTN (hypertension) Insomnia, unspecified Leukocytosis 11/22/1986 [facility] admission - thought leukemia and he refused [...] and affect ar (more content not included)... [facility] 10-21-2023 History of Present illness Narrative ORTHOPAEDIC [...] transfusion HTN (hypertension) Insomnia, unspecified Leukocytosis 11/22/1986 [facility] admission - thought leukemia and he refused [...] Gudelia Samuel MD documented in this encounter [facility] 09-30-2023 Miscellaneous Notes Order is signed. Trying to fax over to [facility]. Will send via tank wagon operator. On desk to sign. I don't recall receiving anything today but may have. Sorry but could you please check. Thanks, Duong Zaidi PA-C Michael with [facility] calling. States she will be re-faxing over an order today that needs signed by Duong Zaidi regarding a verbal order sent to them regarding pt's trazadone. Please sign and fax back. Elyse Liu RN documented in this encounter [facility] 09-28-2023 Note [facility] 09-28-2023 History of Present illness Narrative Subjective [...] transfusion HTN (hypertension) Insomnia, unspecified Leukocytosis 11/22/1986 [facility] admission - thought leukemia and he refused [...] URINE (POC) - URINE CULTURE Joshua Vieira APRN.TRANSPORTATION DISPATCH MANAGER documented in this encounter [facility] 08-16-2023 Miscellaneous Notes Order faxed to [facility] See previous note Telephone on 08/16/23 CONSULT TO PHYSICAL THERAPY [facility] due to transportation availability Duong Tineo PA-C Marilee- [facility]- reports patient had a right total hip revision, and needs pcp to send order to [facility], for outpatient PT. Reports patient will have to go to [facility], b/c he needs transportation and [facility] provides that. Please send order and Marilee will help patient schedule. documented in this encounter [facility] 08-05-2023 Miscellaneous Notes Pt was notified of the results. Pt verbalized understanding. Alondra Puente MA Please notify that urine culture showed likely contamination. If still having symptoms will need to retest. Hematuria noted on ua, patient should have urine retested with pcp in 2-4 weeks to see if persisting. documented in this encounter [facility] 07-29-2023 History of Present illness Narrative [...] Marbella Zaidi PA-C documented in this encounter [facility] 07-27-2023 Telephone encounter Note Pt notified and the Tramadol is helping a little. He only takes if when needed and it is giving him some relief when taken. Zita Palmer LPN [facility] 07-27-2023 Miscellaneous Notes Pt notified and [...] advise. Jada Bonilla documented in this encounter [facility] 09-01-2023 Telephone encounter Note Please verify if he [...] Marbella ZAIDI PA-C Thanks, Greg Barton, PA-C [facility] 07-23-2023 Telephone encounter Note Patient reports that is taking 1 50mg pills tramadol at a time. Also he is out of his tramadol and trazadone now. He will need orders sent to local pharmacy and also to mail order. [facility] 07-23-2023 Miscellaneous Notes Completed and on nursing desk 07/22/2023 Duong Tineo PA-C Type of form: orders Form received via fax When form is completed, Fax form to [phone] Form has been forwarded to Physician Mailbox: BEVERLY Page LPN Catie OT with [facility] calling with plan of care. They are extending his care and they will go 2 times a week for 2 weeks and 1 time a week for 1 week. They will be working on meal prep, showers, and home exercise plan. documented in this encounter [facility] 07-23-2023 Miscellaneous Notes Last Office Visit: 06/28/2023 Future Office Visit: 07/29/2023 Requested Prescriptions Pending Prescriptions Disp Refills gabapentin (NEURONTIN) 300 mg capsule 540 capsule 0 Sig: Take 2 capsules by mouth three times daily for 90 days. Date of Last Labs: 06/28/2023 documented in this encounter [facility] 07-23-2023 Telephone encounter Note Please verify if patient is getting pain relief with tramadol 100mg ThanksDuong PA-C [facility] 07-21-2023 Telephone encounter Note Patient has [...] bedtime. Please review and advise. Jada Bonilla [facility] 07-19-2023 Miscellaneous Notes Providers message left on [employer] in [employer]. Melody Urbano LPN Reviewed and approve. Duong Tineo PA-C In previous encounter Mone requested verbal order for frequency order, copied/pasted below: Mone also asking for recert on residential visits, needs verbal order, for 2 visits weekly for 1 week, then 1 visits weekly for 2 weeks. She is working on his medications filling pill box. Please advise Please phone Mone with verbal approval: [phone] documented in this encounter [facility] 07-16-2023 Miscellaneous Notes The following approved medication requests have been transmitted electronically. Requested Prescriptions Signed Prescriptions Disp Refills buPROPion XL (WELLBUTRIN XL) 300 mg 24 hr tablet 90 tablet 1 Sig: Take 1 tablet by mouth once daily. Authorizing Provider: Marbella ZAIDI PA-C Mone from [facility] calling she is doing patient medication box and noticed he has no more refills on generic Wellbutrin 300 mg. Patient uses [facility] for his local pharmacy. She is not sure who increased his dose, may have been done when he was at [facility]. Computer shows he was taking 150 mg. Asking if Duong would do new rx? Mone also asking for recert on residential visits, needs verbal order, for 2 visits weekly for 1 week, then 1 visits weekly for 2 weeks. She is working on his medications filling pill box. Please advise documented in this encounter [facility] 07-12-2023 Miscellaneous Notes Received home health update via fax. Scanned to [facility] via [employer] for provider review. Please close encounter once reviewed. Pamela Rashid LPN documented in this encounter [facility] 07-09-2023 Miscellaneous Notes Phoned pt, spoke /c pt and caregiver. Notified of below results, both pt and caregiver verbalized understanding. Pt states he does have pain, but unsure if it's d/t fall (see TE from HHN today). Pt states he can't recall if [...] Duong Zaidi PA-C documented in this encounter [facility] 07-09-2023 Miscellaneous Notes Jackie- DRIVER LICENSE EXAMINER- [facility], reports she saw patient yesterday and noted [...] patient was agreeable. documented in this encounter [facility] 07-08-2023 History of Present illness Narrative [...] transfusion HTN (hypertension) Insomnia, unspecified Leukocytosis 11/22/1986 [facility] admission - thought leukemia and he refused [...] Gudelia Samuel MD documented in this encounter [facility] 07-06-2023 History of Present illness Narrative [...] 2023 4:01 PM documented in this encounter [facility] 07-05-2023 Miscellaneous Notes Gracy with [facility] called in and reports they fill Pts medication box and Pt was out of some medications. [facility] didn't have refills as he was at [facility] for so long. She reports he had also bee on Ferrous Sulfate 324 mg. Pt does not have on his medication list except for back in 2013. If provider would like Pt on this can put through, otherwise remove. Patient has been identified by name and date of : Yes, Provider Duong GOEL Date 07/05/23 Time 1234. Gracy [facility] phones for refill(s): Requested Prescriptions Pending Prescriptions [...] 19 Please advise. Thank you. Shelby Baker, RN documented in this encounter [facility] 07-02-2023 Miscellaneous Notes Detailed message left for Kate on secure line. Yudy Nelson Ma Reviewed and approved Thanks, Duong Zaidi PA-C Kate SW with [facility] calls to let provider know that she saw patient yesterday for ANTONIO irasemakristyn and would like to request 1-3 more psychiatric social worker supervisor visits through out the HH certification period to offer additional support to patient for community resources. Kate requests verbal order be called to [phone] and ok to leave voicemail as number is a secure work phone number. Licha Carcamo, IMMANUEL documented in this encounter [facility] 07-02-2023 Miscellaneous Notes Contacted patient and [...] Telephone on 07/01/23 CT FLANK WO IVCON Duong Tineo PA-C Patient calling for lab results done 06/28/23. He is asking for UA results. States he is urinary symptoms of burning with urination and there is a strong odor to his urine. Krysta Lopez RN documented in this encounter [facility] 07-01-2023 Miscellaneous Notes See other TE Pt called in and was asking about lab and urine results. Let him know provider hadn't looked at those yet. Tried to go over information about dizziness and call got dropped. Called and left a voicemail for the Patient to call back and ask for a nurse to receive the providers message. Shelby Baker RN Left detailed message for Marjan PT Left message for pt to return call Yudy Nelson Ma Noted. Push fluids, may need extra time to stand to avoid dizziness from prolonged sitting. Encourage progressive activity. Duong Tineo PA-C Marjan- PT- [facility]- reporting POC: will see patient 2 [...] move around much. documented in this encounter [facility] 07-01-2023 Miscellaneous Notes See other encounter Placed call to patient with no answer. Left VM for return call. Steff Dominguez Left message for patient to return call. Yudy Nelson Ma Images from the original note were not included. Marbella Zaidi PA-C P [facility] Dejuan Moise Please notify patient WBCs in urine with rare bacteria: to be safe will start on Antibiotic: macrobid sent pending culture. Thanks, Duong Zaidi PA-C documented in this encounter [facility] 06-29-2023 Miscellaneous Notes 6:05 PM Phoned [...] 6h. Duong Zaidi PA-C Sabina RN with [facility] calls to give updated medication list to provider from discharge from [facility]: Prescription: Wellbutrin XL 300 mg daily Trazodone 100 mg 2 tablets at bedtime Flomax 0.4 mg at bedtime OTC: Melatonin 5 mg at HS Lidocaine Patch 4% on in AM and off in PM Iron 325 mg daily Miralax 17 gm daily Medication previously on and available in the home: Amlodipine 10 mg daily Lisinopril 20 mg daily Licha Carcamo RN documented in this encounter [facility] 06-28-2023 Instructions Marbella Zaidi PA-C - [...] over long periods. 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 Gudelia Samuel dx perirprosthetic hip fracture, Was on oxycodone x 2 days but now out Transferred to [facility] for PT, OT He doesn't know what [...] Lymph 1.00 - 4.00 k/uL 1.33 1.09 [place]% % 10.6 8.4 Abs [place] <0.87 k/uL 0.99 (H) 0.84 Eosin% % [...] meds: Amlodipine 10mg daily Lisinopril 20mg daily [id number] Patient is compliant with meds Yes [...] Dr. Bhat. ESR 29, CK 554 (weight kelp cutter). Neg: Lead, B2 microglubulin, B12, CMP, CBC/dif. [...] Review Reviewed by To Meeks MD, Ph.D ([id number]) Reviewed by Mone Li MD Albumin, Urine [...] MD Reviewed by Mone Li MD Result ([facility]) No M protein is identified. No M protein is identified. No M protein is identified. Interpretation ([facility]) Not Applicable N/A Staff Review ([facility]) Reviewed by Mone Li MD Reviewed by Mone Li MD Halstad Free, Serum 3.3 - 19.4 mg/L 17.6 [...] with IgM kappa monoclonal gammopathy. Staff Review ([facility]) Reviewed by To Meeks MD, Ph.D ([id number]) Reviewed by Mone Li MD B2 Microglobulin <3.1 mg/L 2.0 4.1 (H) Protein, Urine Random 0 - 20 mg/dL 5 29 (H) Protein, Total 6.3 - 8.0 g/dL 6.7 7.1 7.1 LD 135 - 225 U/L 115 (L) Neurogenic claudication S/p laminectomy Intractable low back pain Fecal smearing Paresthesia of saddle area: cauda equina ruled out 11/11/2022 [facility] ED visit: s/p decompressive laminectomy 04/18/2022 ED [...] transfusion HTN (hypertension) Insomnia, unspecified Leukocytosis 11/22/1986 [place] admission - thought leukemia and he refused [...] use: No Comment: Quit drugs in ~92. ACTIVE PROBLEM LIST Hypertension Sleeping Difficulty S/P [...] Marbella Zaidi PA-C documented in this encounter [facility] 06-25-2023 Miscellaneous Notes Alicja at [facility] notified Duong mckinney with the below orders. Yes, Thanks, Duong Zaidi PA-C Alicja nurse from [facility] calling and states that pt will be discharged from [facility] tomorrow 06/25/23. Has his hospital f/u with Duong Zaidi on Wednesday06/28/23. Alicja will be asking Dr. Gudelia Samuel, pt's orthopedic doctor for ortho orders but will Duong follow pt for non ortho orders? Will be having nursing, PT and OT. Need order for start of care on 06/30/23. Okay to LM on Alicja's confidential VM. documented in this encounter [facility] 05-12-2023 History of Present illness Narrative [...] transfusion HTN (hypertension) Insomnia, unspecified Leukocytosis 11/22/1986 [place] admission - thought leukemia and he refused [...] use: No Comment: Quit drugs in ~. MEDICATIONS: Current Outpatient Medications Medication Sig oxyCODONE [...] Gudelia Samuel MD documented in this encounter [facility] 05-07-2023 History of Present illness Narrative [...] legs. He is on oxycodone at the [facility]. He has chronic constipation. Had an enema [...] Abs Lymph 1.00 - 4.00 k/uL 1.09 [place]% % 8.4 Abs [place] <0.87 k/uL 0.84 Eosin% % 5.4 Abs [...] Review Reviewed by To Meeks MD, Ph.D ([id number]) Reviewed by Mone Li MD Component Latest [...] that represent 5-10% of the total cellularity. Halstad and lambda stains are difficult to interpret [...] to have lab work done at the [facility] next week because he is uncomfortable and [...] which included preparing to see the patient, [id number] patient care, completing clinical documentation, obtaining and/or reviewing separately obtained history, performing a medically appropriate examination, counseling and educating the patient/family/caregiver, ordering medications, tests, or procedures, communicating with other HCPs (not separately reported), and communicating results to the patient/family/caregiver. Sanjay Bhat DO documented in this encounter [facility] 04-28-2023 Miscellaneous Notes Lab orders faxed. Massiel Welch LPN Please file orders to be faxed to [facility]. Massiel Welch LPN Will wait until 05/03 to fax orders. Yari Ellis LPN Dotty called regarding lab appt on 04/30. She asks that orders be faxed to OR and they can complete them there. Please fax to [phone] documented in this encounter [facility] 03-31-2023 History of Past i llness [...] Dr. Bhat. ESR 29, CK 554 (weight kelp cutter). Neg: Lead, B2 microglubulin, B12, CMP, CBC/dif. [...] of this encounter (statuses as of 04/29/2023) [facility] History of Past illness Narrative* Problem [...] Dr. Bhat. ESR 29, CK 554 (weight kelp cutter). Neg: Lead, B2 microglubulin, B12, CMP, CBC/dif. [...] of this encounter (statuses as of 05/07/2023) [facility] History of Past illness Narrative* Problem [...] Dr. Bhat. ESR 29, CK 554 (weight kelp cutter). Neg: Lead, B2 microglubulin, B12, CMP, CBC/dif. [...] of this encounter (statuses as of 05/12/2023) [facility] History of Past illness Narrative* Problem [...] Dr. Bhat. ESR 29, CK 554 (weight kelp cutter). Neg: Lead, B2 microglubulin, B12, CMP, CBC/dif. [...] of this encounter (statuses as of 06/25/2023) [facility] History of Past illness Narrative* Problem [...] Dr. Bhat. ESR 29, CK 554 (weight kelp cutter). Neg: Lead, B2 microglubulin, B12, CMP, CBC/dif. [...] of this encounter (statuses as of 06/30/2023) [facility] History of Past illness Narrative* Problem [...] Dr. Bhat. ESR 29, CK 554 (weight kelp cutter). Neg: Lead, B2 microglubulin, B12, CMP, CBC/dif. [...] of this encounter (statuses as of 07/01/2023) [facility] History of Past illness Narrative* Problem [...] Dr. Bhat. ESR 29, CK 554 (weight kelp cutter). Neg: Lead, B2 microglubulin, B12, CMP, CBC/dif. [...] of this encounter (statuses as of 07/02/2023) [facility] History of Past illness Narrative* Problem [...] Dr. Bhat. ESR 29, CK 554 (weight kelp cutter). Neg: Lead, B2 microglubulin, B12, CMP, CBC/dif. [...] of this encounter (statuses as of 07/02/2023) [facility] History of Past illness Narrative* Problem [...] Dr. Bhat. ESR 29, CK 554 (weight kelp cutter). Neg: Lead, B2 microglubulin, B12, CMP, CBC/dif. [...] of this encounter (statuses as of 07/03/2023) [facility] [facility] History of Past illness Narrative* Problem [...] Dr. Bhat. ESR 29, CK 554 (weight kelp cutter). Neg: Lead, B2 microglubulin, B12, CMP, CBC/dif. [...] of this encounter (statuses as of 07/06/2023) [facility] History of Past illness Narrative* Problem [...] Dr. Bhat. ESR 29, CK 554 (weight kelp cutter). Neg: Lead, B2 microglubulin, B12, CMP, CBC/dif. [...] of this encounter (statuses as of 07/09/2023) [facility] History of Past illness Narrative* Problem [...] Dr. Bhat. ESR 29, CK 554 (weight kelp cutter). Neg: Lead, B2 microglubulin, B12, CMP, CBC/dif. [...] of this encounter (statuses as of 07/09/2023) [facility] History of Past illness Narrative* Problem [...] Dr. Bhat. ESR 29, CK 554 (weight kelp cutter). Neg: Lead, B2 microglubulin, B12, CMP, CBC/dif. [...] of this encounter (statuses as of 07/13/2023) [facility] History of Past illness Narrative* Problem [...] Dr. Bhat. ESR 29, CK 554 (weight kelp cutter). Neg: Lead, B2 microglubulin, B12, CMP, CBC/dif. [...] of this encounter (statuses as of 07/17/2023) [facility] History of Past illness Narrative* Problem [...] Dr. Bhat. ESR 29, CK 554 (weight kelp cutter). Neg: Lead, B2 microglubulin, B12, CMP, CBC/dif. [...] of this encounter (statuses as of 07/20/2023) [facility] History of Past illness Narrative* Problem [...] Dr. Bhat. ESR 29, CK 554 (weight kelp cutter). Neg: Lead, B2 microglubulin, B12, CMP, CBC/dif. [...] of this encounter (statuses as of 07/23/2023) [facility] History of Past illness Narrative* Problem [...] Dr. Bhat. ESR 29, CK 554 (weight kelp cutter). Neg: Lead, B2 microglubulin, B12, CMP, CBC/dif. [...] of this encounter (statuses as of 07/23/2023) [facility] History of Past illness Narrative* Problem [...] Dr. Bhat. ESR 29, CK 554 (weight kelp cutter). Neg: Lead, B2 microglubulin, B12, CMP, CBC/dif. [...] of this encounter (statuses as of 07/31/2023) [facility] History of Past illness Narrative* Problem [...] Dr. Bhat. ESR 29, CK 554 (weight kelp cutter). Neg: Lead, B2 microglubulin, B12, CMP, CBC/dif. [...] of this encounter (statuses as of 08/05/2023) [facility] History of Past illness Narrative* Problem [...] Dr. Bhat. ESR 29, CK 554 (weight kelp cutter). Neg: Lead, B2 microglubulin, B12, CMP, CBC/dif. [...] of this encounter (statuses as of 08/11/2023) [facility] History of Past illness Narrative* Problem [...] Dr. Bhat. ESR 29, CK 554 (weight kelp cutter). Neg: Lead, B2 microglubulin, B12, CMP, CBC/dif. [...] of this encounter (statuses as of 08/17/2023) [place] [address]-10-2023 History of Past illness Narrative* Problem Noted [...] Dr. Bhat. ESR 29, CK 554 (weight kelp cutter). Neg: Lead, B2 microglubulin, B12, CMP, CBC/dif. [...] of this encounter (statuses as of 09/26/2023) [facility] History of Past illness Narrative* Problem Noted Date Diagnosed Date Resolved Date Mechanical complication of p rosthetic hip implant, initial encounter ([facility]) 03/31/2023 023 Incontinence of urine 11/14/20222021 Generalized [...] Dr. Bhat. ESR 29, CK 554 (weight kelp cutter). Neg: Lead, B2 microglubulin, B12, CMP, CBC/dif. [...] of this encounter (statuses as of 09/29/2023) [facility] History of Past illness Narrative* Problem Noted Date Diagnosed Date Resolved Date Mechanical complication of p rosthetic hip implant, initial encounter ([facility]) 03/31/2023 023 Incontinence of urine 11/14/20222021 Generalized [...] Dr. Bhat. ESR 29, CK 554 (weight kelp cutter). Neg: Lead, B2 microglubulin, B12, CMP, CBC/dif. [...] of this encounter (statuses as of 10/01/2023) [facility] History of Past illness Narrative* Problem [...] Dr. Bhat. ESR 29, CK 554 (weight kelp cutter). Neg: Lead, B2 microglubulin, B12, CMP, CBC/dif. [...] of this encounter (statuses as of 10/22/2023) [facility] History of Past illness Narrative* Problem Noted Date Diagnosed Date Resolved Date Mechanical complication of p rosthetic hip implant, initial encounter ([facility]) 03/31/2023 023 Incontinence of urine 11/14/20222021 Generalized [...] Dr. Bhat. ESR 29, CK 554 (weight kelp cutter). Neg: Lead, B2 microglubulin, B12, CMP, CBC/dif. [...] of this encounter (statuses as of 11/04/2023) [facility] History of Past illness Narrative* Problem [...] Dr. Bhat. ESR 29, CK 554 (weight kelp cutter). Neg: Lead, B2 microglubulin, B12, CMP, CBC/dif. [...] of this encounter (statuses as of 12/28/2023) [facility] History of Past illness Narrative* Problem Noted Date Diagnosed Date Resolved Date Mechanical complication of p rosthetic hip implant, initial encounter ([facility]) 03/31/2023 023 Incontinence of urine 11/14/20222021 Generalized [...] Dr. Bhat. ESR 29, CK 554 (weight kelp cutter). Neg: Lead, B2 microglubulin, B12, CMP, CBC/dif. [...] of this encounter (statuses as of 12/31/2023) [facility] History of Past illness Narrative* Problem [...] Dr. Bhat. ESR 29, CK 554 (weight kelp cutter). Neg: Lead, B2 microglubulin, B12, CMP, CBC/dif. [...] of this encounter (statuses as of 12/31/2023) [facility] History of Past illness Narrative* Problem Noted Date Diagnosed Date Resolved Date Mechanical complication of p rosthetic hip implant, initial encounter ([facility]) 03/31/2023 023 Incontinence of urine 11/14/20222021 Generalized [...] Dr. Bhat. ESR 29, CK 554 (weight kelp cutter). Neg: Lead, B2 microglubulin, B12, CMP, CBC/dif. [...] of this encounter (statuses as of 01/01/2024) [facility] History of Past illness Narrative* Problem [...] Dr. Bhat. ESR 29, CK 554 (weight kelp cutter). Neg: Lead, B2 microglubulin, B12, CMP, CBC/dif. [...] of this encounter (statuses as of 01/01/2024) [facility] History of Past illness Narrative* Problem [...] Dr. Bhat. ESR 29, CK 554 (weight kelp cutter). Neg: Lead, B2 microglubulin, B12, CMP, CBC/dif. [...] of this encounter (statuses as of 01/03/2024) [facility] History of Past illness Narrative* Problem Noted Date Diagnosed Date Resolved Date Mechanical complication of p rosthetic hip implant, initial encounter ([facility]) 03/31/2023 023 Incontinence of urine 11/14/20222021 Generalized [...] Dr. Bhat. ESR 29, CK 554 (weight kelp cutter). Neg: Lead, B2 microglubulin, B12, CMP, CBC/dif. [...] of this encounter (statuses as of 01/04/2024) [facility] History of Past illness Narrative* Problem Noted Date Diagnosed Date Resolved Date Mechanical complication of p rosthetic hip implant, initial encounter ([facility]) 03/31/2023 023 Incontinence of urine 11/14/20222021 Generalized [...] Dr. Bhat. ESR 29, CK 554 (weight kelp cutter). Neg: Lead, B2 microglubulin, B12, CMP, CBC/dif. [...] of this encounter (statuses as of 01/04/2024) [facility] History of Past illness Narrative* Problem Noted Date Diagnosed Date Resolved Date Mechanical complication of p rosthetic hip implant, initial encounter ([facility]) 03/31/2023 023 Incontinence of urine 11/14/20222021 Generalized [...] precise severity is difficult to determine electrodiagnostically. 6/2/21 bone marrow: does not suggest lymphoplasmacytic lymphoma. 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 04/01/[address] Bhat. ESR 29, CK 554 (weight kelp cutter). Neg: Lead, B2 microglubulin, B12, CMP, CBC/dif. [...] of this encounter (statuses as of 01/05/2024) [facility] History of Past illness Narrative* Problem [...] Dr. Bhat. ESR 29, CK 554 (weight kelp cutter). Neg: Lead, B2 microglubulin, B12, CMP, CBC/dif. [...] of this encounter (statuses as of 01/12/2024) [facility] History of Past illness Narrative* Problem Noted Date Diagnosed Date Resolved Date Mechanical complication of p rosthetic hip implant, initial encounter ([facility]) 03/31/2023 023 Incontinence of urine 11/14/20222021 Generalized [...] Dr. Bhat. ESR 29, CK 554 (weight kelp cutter). Neg: Lead, B2 microglubulin, B12, CMP, CBC/dif. [...] of this encounter (statuses as of 01/31/2024) [facility] History of Past illness Narrative* Problem Noted Date Diagnosed Date Resolved Date Mechanical complication of p rosthetic hip implant, initial encounter ([facility]) 03/31/2023 023 Incontinence of urine 11/14/20222021 Generalized [...] Dr. Bhat. ESR 29, CK 554 (weight kelp cutter). Neg: Lead, B2 microglubulin, B12, CMP, CBC/dif. [...] of this encounter (statuses as of 02/03/2024) [facility] History of Past illness Narrative* Problem Noted Date Diagnosed Date Resolved Date Mechanical complication of p rosthetic hip implant, initial encounter ([facility]) 03/31/2023 023 Incontinence of urine 11/14/20222021 Generalized [...] Dr. Bhat. ESR 29, CK 554 (weight kelp cutter). Neg: Lead, B2 microglubulin, B12, CMP, CBC/dif. [...] of this encounter (statuses as of 02/04/2024) [facility] History of Past illness Narrative* Problem Noted Date Diagnosed Date Resolved Date Mechanical complication of p rosthetic hip implant, initial encounter ([facility]) 03/31/2023 023 Incontinence of urine 11/14/20222021 Generalized [...] Dr. Bhat. ESR 29, CK 554 (weight kelp cutter). Neg: Lead, B2 microglubulin, B12, CMP, CBC/dif. [...] of this encounter (statuses as of 02/04/2024) [facility] History of Past illness Narrative* Problem Noted Date Diagnosed Date Resolved Date Mechanical complication of p rosthetic hip implant, initial encounter ([facility]) 03/31/2023 023 Incontinence of urine 11/14/20222021 Generalized [...] Dr. Bhat. ESR 29, CK 554 (weight kelp cutter). Neg: Lead, B2 microglubulin, B12, CMP, CBC/dif. [...] of this encounter (statuses as of 02/07/2024) [facility] History of Past illness Narrative* Problem Noted Date Diagnosed Date Resolved Date Mechanical complication of p rosthetic hip implant, initial encounter ([facility]) 03/31/2023 023 Incontinence of urine 11/14/20222021 Generalized [...] Dr. Bhat. ESR 29, CK 554 (weight kelp cutter). Neg: Lead, B2 microglubulin, B12, CMP, CBC/dif. [...] of this encounter (statuses as of 02/07/2024) [facility] of Past illness Narrative* Problem Noted Date Diagnosed Date Resolved Date Mechanical complication of p rosthetic hip implant, initial encounter ([facility]) 03/31/2023 023 Incontinence of urine 11/14/20222021 Generalized [...] Dr. Bhat. ESR 29, CK 554 (weight kelp cutter). Neg: Lead, B2 microglubulin, B12, CMP, CBC/dif. [...] of this encounter (statuses as of 02/07/2024) [facility] History of Past illness Narrative* Problem Noted Date Diagnosed Date Resolved Date Mechanical complication of p rosthetic hip implant, initial encounter ([facility]) 03/31/2023 023 Incontinence of urine 11/14/20222021 Generalized [...] Dr. Bhat. ESR 29, CK 554 (weight kelp cutter). Neg: Lead, B2 microglubulin, B12, CMP, CBC/dif. [...] of this encounter (statuses as of 02/08/2024) [facility] History of Past illness Narrative* Problem Noted Date Diagnosed Date Resolved Date Mechanical complication of p rosthetic hip implant, initial encounter ([facility]) 03/31/2023 023 Incontinence of urine 11/14/20222021 Generalized [...] Dr. Bhat. ESR 29, CK 554 (weight kelp cutter). Neg: Lead, B2 microglubulin, B12, CMP, CBC/dif. [...] of this encounter (statuses as of 02/09/2024) [facility] History of Past illness Narrative* Problem Noted Date Diagnosed Date Resolved Date Mechanical complication of p rosthetic hip implant, initial encounter ([facility]) 03/31/2023 023 Incontinence of urine 11/14/20222021 Generalized [...] Dr. Bhat. ESR 29, CK 554 (weight kelp cutter). Neg: Lead, B2 microglubulin, B12, CMP, CBC/dif. [...] of this encounter (statuses as of 02/10/2024) [facility] History of Past illness Narrative* Problem Noted Date Diagnosed Date Resolved Date Mechanical complication of p rosthetic hip implant, initial encounter ([facility]) 03/31/2023 023 Incontinence of urine 11/14/20222021 Generalized [...] Dr. Bhat. ESR 29, CK 554 (weight kelp cutter). Neg: Lead, B2 microglubulin, B12, CMP, CBC/dif. [...] of this encounter (statuses as of 02/14/2024) [facility] History of Past illness Narrative* Problem [...] Dr. Bhat. ESR 29, CK 554 (weight kelp cutter). Neg: Lead, B2 microglubulin, B12, CMP, CBC/dif. [...] of this encounter (statuses as of 02/15/2024) [facility] History of Past illness Narrative* Problem Noted Date Diagnosed Date Resolved Date Mechanical complication of p rosthetic hip implant, initial encounter ([facility]) 03/31/2023 023 Incontinence of urine 11/14/20222021 Generalized [...] Dr. Bhat. ESR 29, CK 554 (weight kelp cutter). Neg: Lead, B2 microglubulin, B12, CMP, CBC/dif. [...] of this encounter (statuses as of 02/25/2024) [facility] History of Past illness Narrative* Problem [...] Dr. Bhat. ESR 29, CK 554 (weight kelp cutter). Neg: Lead, B2 microglubulin, B12, CMP, CBC/dif. [...] of this encounter (statuses as of 03/03/2024) [facility] History of Past illness Narrative* Problem Noted Date Diagnosed Date Resolved Date Mechanical complication of p rosthetic hip implant, initial encounter ([facility]) 03/31/2023 023 Incontinence of urine 11/14/20222021 Generalized [...] Dr. Bhat. ESR 29, CK 554 (weight kelp cutter). Neg: Lead, B2 microglubulin, B12, CMP, CBC/dif. [...] of this encounter (statuses as of 03/07/2024) [facility] History of Past illness Narrative* Problem [...] Dr. Bhat. ESR 29, CK 554 (weight kelp cutter). Neg: Lead, B2 microglubulin, B12, CMP, CBC/dif. [...] of this encounter (statuses as of 03/10/2024) [facility] History of Present illness Narrative* Gudelia Samuel MD - 03/31/2023 10:26 AM EDT ORTHOPAEDIC OFFICE NOTE CHIEF COMPLAINT: Follow-up right periprosthetic fracture HISTORY OF PRESENT ILLNESS: Miroslvaa Peralta is a 72 year old male [...] transfusion HTN (hypertension) Insomnia, unspecified Leukocytosis 11/22/1986 [facility] admission - thought leukemia and he refused [...] Surgery. Gudelia Samuel MD documented in this encounterOhio [facility] History of Present illness Narrative* Gudelia [...] transfusion HTN (hypertension) Insomnia, unspecified Leukocytosis 11/22/1986 [facility] admission - thought leukemia and he refused [...] 04/28/2023). Gudelia Samuel MD documented in this encounterOhio [facility] Miscellaneous Notes* Telephone Encounter - Hui Rocha - 03/12/2023 3:00 PM EDT Called and left message for Marlin with [facility] [place] to call me back and reschedule appointment [...] Person calling if other than patient: Marlin (superintendent transportation @ [place]) Return call to if other than patient: same Best contact number: [phone] Thank you, Carmela Herron March 12, 2023 1:32 PM documented in this encounterOhio [facility]23 Miscellaneous Notes* Telephone Encounter - Hui Rocha - 03/11/2023 4:25 PM EDT Called [facility] and spoke to Jocelin, advised Dr. Samuel was called and told patient dislocated R hip again. Jocelin stated this is correct, and agreed to scheduled appointment for patient with Dr. Samuel. Appointment scheduled for 03/15/23 10:30 am POB. Jocelin agreeable to appointment date, time, location and will have patient transported by facility. Hui Rocha March 11, 2023 4:27 PM documented in this encounterOhio [facility] History of Present illness Narrative* Gudelia [...] transfusion HTN (hypertension) Insomnia, unspecified Leukocytosis 11/22/1986 [facility] admission - thought leukemia and he refused [...] 04/21/2023). Gudelia Samuel MD documented in this encounterOhio [facility]03[facility]28[facility] History of Present illness Narrative* Dany Gomez PA-C - 02/16/2023 3:44 PM EDT Images from the original note were not included. [facility]IENT [facility] [...] History of transfusion HTN (hypertension) Leukocytosis 11/22/1986 [facility] admission - thought leukemia and he refused [...] tests, or procedures, and care coordination. KARINA Alaniz MT, PA-C * Pamela Rashdi LPN - 02/16/2023 3:23 PM EDT Verified name and date of . CC Post Void Residual HPI: Miroslava Peralta is a 72 year old male. The patient is here now for an appointment with KARINA Alaniz MT, PA-COV. Procedure: Explained procedure to patient and verbalizes understanding. Performed a PVR. Patient urinated and instructed to empty bladder as much as possible just prior to having PVR done using bladder ultrasound scanner. Results of scan: 105 mL The patient tolerated the procedure well. Plan: Appointment with Dany. documented in this encounterOhio [facility]03[facility] History of Present illness Narrative* Gracy Sears APRN.MYRA - 02/11/2023 1:45 PM EDT Images from the original note were not included. [facility] [place] Follow-up Visit Follow-up note February 11, 2023 [...] know why he was there. Went to [facility] initially because he was having severe [...] History of transfusion HTN (hypertension) Leukocytosis 11/22/1986 [facility] admission - thought leukemia and he refused [...] to assess gait as pt presents in WC and is only able to stand with walker. + Tinel's over right wrist. Labs/studies: MRI Report MRI BRAIN WO/W IVCON Exam End: 07/01/2022 12:37 PM (Final result) Narrative: * * *Final Report* * * DATE OF EXAM: Jul 01 2022 12:37PM HANNA Weeks5 - MRI BRAIN WO/W IVCON / PROCEDURE REASON: multiple diagnoses * * * * Physician Interpretation * * * * EXAMINATION: MRI BRAIN WO/W IVCON HISTORY: Chronic vertigo Ataxia Fall, subsequent encounter Family medicine Epic (electronic medical record) Encounter (USING CUT AND PASTE FEATURE) 06/09/2022: Chronic vertigo - ICD9: 780.4, ICD10: R42 Following with ENT referral? - ?MRI BRAIN WO/W IVCON - ?IV CONTRAST (RADIOLOGY PROCEDURE) - ?TSH BLD Extensive note in Epic. NOTE: CUTTING AND PASTING from Epic to the dictation system appears to introduce [...] No acute intracranial process or abnormal enhancement. Bicycle Rental Clerk: AMANDA Transcribe Date/Time: Jul 01 2022 12:50P Dictated by : LUIS ISSA MD This examination was interpreted and the report reviewed and electronically signed by: LUIS ISSA MD on Jul 01 2022 12:55PM EST MRI Spine Report MRI THORACIC SPINE WO IVCON Exam End: 11/16/2022 10:17 AM (Final result) Narrative: * * *Final Report* * * DATE OF EXAM: Nov 16 2022 10:17AM VIDAL 0325 - MRI THORACIC SPINE WO IVCON [...] and assume there are 5 lumbar-type vertebrae. Bicycle Rental Clerk: [facility] Transcribe Date/Time: Nov 16 2022 1:31P Dictated [...] 3. Moderate left L3-4 and L4-5 and [id number] same level neural foraminal narrowing. Component Latest [...] (uncertain if this can be completed at [facility] and pt may need to schedule on DC from facility). Office Visit on 02/11/23 CONSULT TO [facility] PT Gracy Sears APRN.TRANSPORTATION DISPATCH MANAGER I spent a total of 40 minutes on the date of the service which included preparing to see the patient, [id number] patient care, completing clinical documentation, obtaining and/or reviewing separately obtained history, performing a medically appropriate examination, counseling and educating the pat ient/family/caregiver, and ordering medications, tests, or procedures. documented in this encounterOhio [facility]03-[facility]23 History of Present illness Narrative* Gudelia [...] History of transfusion HTN (hypertension) Leukocytosis 11/22/1986 [facility] admission - thought leukemia and he refused [...] sign of loosening or failure of hardware. Dimitry are in place in the soft tissue. [...] 02/24/2023). Gudelia Samuel MD documented in this encounterOhio [facility]03-01-2023 Miscellaneous Notes* Telephone Encounter - Huijordan Rocha - 01/20/2023 2:02 PM EST Called [...] patient: [facility] Best contact number: [phone] Thank you, Giselle Davidson January 20, 2023 12:03 PM documented in this encounterOhio State [facility] Hospital02-17-2023 History of Past illness Narrative* Problem [...] Dr. Bhat. ESR 29, CK 554 (weight kelp cutter). Neg: Lead, B2 microglubulin, B12, CMP, CBC/dif. [...] of this encounter (statuses as of 01/20/2023) [facility] Narrative* Problem [...] Dr. Bhat. ESR 29, CK 554 (weight kelp cutter). Neg: Lead, B2 microglubulin, B12, CMP, CBC/dif. [...] of this encounter (statuses as of 02/03/2023) [facility] Past [facility] Narrative* Problem [...] Dr. Bhat. ESR 29, CK 554 (weight kelp cutter). Neg: Lead, B2 microglubulin, B12, CMP, CBC/dif. [...] of this encounter (statuses as of 02/12/2023) [facility] of Past [facility] Narrative* Problem [...] Dr. Bhat. ESR 29, CK 554 (weight kelp cutter). Neg: Lead, B2 microglubulin, B12, CMP, CBC/dif. [...] of this encounter (statuses as of 02/16/2023) [facility] Narrative* Problem [...] Dr. Bhat. ESR 29, CK 554 (weight kelp cutter). Neg: Lead, B2 microglubulin, B12, CMP, CBC/dif. [...] of this encounter (statuses as of 02/18/2023) [facility] Narrative* Problem [...] Dr. Bhat. ESR 29, CK 554 (weight kelp cutter). Neg: Lead, B2 microglubulin, B12, CMP, CBC/dif. [...] of this encounter (statuses as of 02/25/2023) [facility] Narrative* Problem [...] Dr. Bhat. ESR 29, CK 554 (weight kelp cutter). Neg: Lead, B2 microglubulin, B12, CMP, CBC/dif. [...] of this encounter (statuses as of 03/06/2023) [facility] Miscellaneous Notes* Telephone Encounter - Andra Hough MD - 12/16/2022 9:18 AM EST Please notify the patient that is MRI pituitary came back normal At this time, no further endocrine testing is needed As I suggested the patient during the appt, he need to see neurology regarding decreased Lower extremity strength. Andra Hough MD documented in this encounterCleveland [id number] NoteHNO ID: [id number] Author: Norma Hewitt RT(R) Service: Radiology Author Type: Technologist Type: Progress [...] Peral[place] DATE: December 08, 2022 TIME: 11:49 AMCincinnati Va Medical [id number] Miscellaneous Notes* Telephone Encounter - Yudy Nelson Ma - 12/03/2022 10:13 AM EST Patient notified. Please help pt set up appt * Telephone Encounter - Marbella Zaidi PA-C - 12/02/2022 12:07 PM EST Please let him know I did discuss his case with Dr. Singh. He recommended f/u with neurosurgeon Thanks, Duong Zaidi PA-C documented in this encounterOhio State [facility]ing Hospital01-04-2023 Miscellaneous Notes* Telephone Encounter - Karis [...] out of the office over the holiday. Thanks, Duong Zaidi PA-C * Telephone Encounter - Hazel Grubbs LPN - 11/24/2022 4:38 PM EST Patient friend Jocelin gan, she said she was at patient appt with him on 11/19, she is askingif Don could have scan negative cauda equina syndrome? If he needs more testing done? Please advise documented in this encounterOhio State Harding Hospital01-03-2023 Miscellaneous Notes* Telephone Encounter - Yudy Nelson Ma - 11/24/2022 9:03 AM EST Images from the original note were not included. Marbella Zaidi PA-C P tr María Moise Please have him schedule follow up with neuro Dr Stacy. Thanks, Duong Zaidi PA-C documented in this encounterOhio State Harding Hospital12-29-2022 History of Present illness Narrative* Marbella Zaidi PA-C - 11/19/2022 4:00 PM EST 72 year old male with c/o hospital discharge follow up: Pre-hospitalization details: 11/01/2022 presented to [facility] ER after fall hitting chest on bathtub, fractured CT chest: Multiple small lymph nodes in the mediastinum consistent with reactive lymph hyperplasia,nondisplaced left rib fractures Oxycodone 5/325mg/ #20 11/11/2022 [facility] ED visit: s/p decompressive laminectomy 04/18/2022 ED visit for abscess at incision. 03/20/2022 ED visit urinary retention, Worsening leg pain, difficulty ambulating, incontinent of formed stool with loss of sensation ( hadmentioned stool streaks at our last visit). Lab Na Hospital course: admitted due to need for hospital transfer prolonged. Discharged to [facility] 11/14/2022 From [facility] records: Admission date 11/14/2022 Discharge date TRANSITIONS [...] DURING HOSPITALIZATION: Treatment Team: Attending Provider: Gianluca Abacra MD Consulting: Joshua Chris DO Orders Placed [...] [facility] 03/11/2023 11:00 AM BEVERLY Robbins ON LICENSE OF [facility] ДМИТРИЙ 04/30/2023 1:30 PM LAB ON LICENSE OF [facility] WSTR MOB LABMOB [place] [facility] 05/07/2023 2:50 PM DO VARGAS Hollins Imaging review: 11/12/2022 MRI spine: T10-T11: Broad-based [...] Negative Negative Ketones, Urine Negative Negative Specific [place], Ur 1.005 - 1.030 1.025 Hemoglobin/Blood,Ur Negative, [...] g with 8 ounces of liquid daily #30/1 Senna 8.6 mg daily #30/1 Discontinue medications: Metamucil Morphine 1 mg Ondansetron [...] 1991 Hip arthritis HTN (hypertension) Leukocytosis 1987 [facility] admission - thought leukemia and he refused [...] schedule Marbella Zaidi PA-C documented in this encounterOhio State Harding Hospital12-26-2022 Miscellaneous Notes* Telephone Encounter - Joya Carpenter RN - 11/16/2022 6:18 PM EST Pt's friend stated pt is currently getting discharge from the hospital and she have some concerns. Conference pt's friend to the [facility] for assistant manager of operations with getting connected to the nursing station for PK3C. documented in this encounterOhio State Harding Hospital12-25-2022 NoteHNO ID: [id number] Author: Gianluca Abarca MD Service: Hospital Medicine [...] Peralta DATE: November 15, 2022 TIME: 4:25 [facility]12-25-2022 NoteHNO ID: [id number] Author: Delia Mauro MD Service: Neurosurgery Author [...] Primary team has been contacted directly about recommendations.[facility] [id number] History of Past illness Narrative* Problem Noted [...] Dr. Bhat. ESR 29, CK 554 (weight kelp cutter). Neg: Lead, B2 microglubulin, B12, CMP, CBC/dif. [...] of this encounter (statuses as of 11/21/2022) [facility]12-24-[facility] History of Past illness Narrative* Problem [...] Dr. Bhat. ESR 29, CK 554 (weight kelp cutter). Neg: Lead, B2 microglubulin, B12, CMP, CBC/dif. [...] of this encounter (statuses as of 11/26/2022) [facility]12-24-[facility] History of Past illness Narrative* Problem [...] Dr. Bhat. ESR 29, CK 554 (weight kelp cutter). Neg: Lead, B2 microglubulin, B12, CMP, CBC/dif. [...] of this encounter (statuses as of 11/26/2022) [facility] History of Past illness Narrative* Problem [...] Dr. Bhat. ESR 29, CK 554 (weight kelp cutter). Neg: Lead, B2 microglubulin, B12, CMP, CBC/dif. [...] of this encounter (statuses as of 12/09/2022) [facility] History of Past illness Narrative* Problem [...] L265P mutation not detected. 04/01/[address] hBat. ESR 29, CK 554 (weight kelp cutter). Neg: Lead, B2 microglubulin, B12, CMP, CBC/dif. [...] of this encounter (statuses as of 12/16/2022) [facility] History of Past illness Narrative* Problem [...] Dr. Bhat. ESR 29, CK 554 (weight kelp cutter). Neg: Lead, B2 microglubulin, B12, CMP, CBC/dif. [...] of this encounter (statuses as of 12/17/2022) [facility] History of Past illness Narrative* Problem [...] Dr. Bhat. ESR 29, CK 554 (weight kelp cutter). Neg: Lead, B2 microglubulin, B12, CMP, CBC/dif. [...] of this encounter (statuses as of 12/18/2022) [facility] History of Past illness Narrative* Problem [...] Dr. Bhat. ESR 29, CK 554 (weight kelp cutter). Neg: Lead, B2 microglubulin, B12, CMP, CBC/dif. [...] of this encounter (statuses as of 01/11/2023) [facility]12-24-[facility] History of Past illness Narrative* Problem [...] Dr. Bhat. ESR 29, CK 554 (weight kelp cutter). Neg: Lead, B2 microglubulin, B12, CMP, CBC/dif. [...] of this encounter (statuses as of 03/12/2023) [facility] History of Past illness Narrative* Problem [...] Dr. Bhat. ESR 29, CK 554 (weight kelp cutter). Neg: Lead, B2 microglubulin, B12, CMP, CBC/dif. [...] of this encounter (statuses as of 03/17/2023) [facility] History of Past illness Narrative* Problem [...] Dr. Bhat. ESR 29, CK 554 (weight kelp cutter). Neg: Lead, B2 microglubulin, B12, CMP, CBC/dif. [...] of this encounter (statuses as of 03/31/2023) [facility]12-24-[facility]22 NoteHNO ID: [id number] Author: Lillie Olivier RN Service: ? Author Type: Registered Nurse Type: Nursing Progress Note Filed: 11/14/2022 4:20 AM Note Text: [id number] Report called to F[facility] at [facility]. 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 Nights: [phone], please page [facility] Hospitalist Night coverage pager [phone]. Subjective INTERVAL HPI: Lateral chest wall pain [...] -ED staff discussed with neurosurgeon on-call at [facility] who recommended MRI of lumbar spine. -Patient [facility] evaluation pending bed availability. [...] fractures unchanged from radiographs (more content not included)...[facility] [id number] NoteHNO ID: [id number] Author: Theresa Flannery RN Service: Care Management [...] Evaluation;Other: See Comment (Plan is transfer to [facility] for Neurosurgery eval) POTENTIAL TRANSITION PLANS To Be Determined Based on clinical judgement, Care Management will address the following needs: Medical;Functional Patient's perception of need for this admission: I'm having a hard time functioning due to the back pain and weakness ADVANCE DIRECTIVES Current Advance Directive: Health Care Power of Mortgage Coordinator;Living Will In Chart: Yes Up To Date [...] discharge within 30 days: No PATIENT SCREEN 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 Does have limited support system. MEDICAL Medical [...] Completely I feel financially burdened by my nsz-te-zpmimc expenses for my prescription medication:: 0 - Disagree Completely Risk Score: 0 Patient is categorized as: Low risk < 2 SOCIAL Living Arrangements: Home Lives With: Alone Financial Resources: Retired Supportive Patient Contact:: Yes Contact Resources: Family Family Name/Phone: Ailin/ daughter/ [phone] Contact Resources: Family Family Name/Phone: Ailin/ daughter/ [phone] Health Literacy How often do you need [...] BEHAVIORAL/COGNITIVE Psychosocial Psychosocial Needs: (more content not included)...[facility] [id number] Miscellaneous Notes* Telephone Encounter - Deann Domínguez MD - 11/12/2022 7:27 AM EST Call from [facility], 72 yo male with remote decompression laminectomy [...] and LS spine MRIs and transfer to [facility] for ongoing evaluation. Deann Domínguez MD 11/11/22 documented in this encounterOhio State Harding Hospital12-15-2022 Miscellaneous Notes* Telephone Encounter - Andra Hough MD - 11/05/2022 1:38 PM EST Please notify the patient that his FSH continues to be elevated As we discussed during the appt, I would like him to proceed with MRI pituitary Order placed Andra Hough MD documented in this encounterOhio State Harding Hospital12-13-2022 Miscellaneous Notes* Telephone Encounter - Logan Aviles LPN - 11/03/2022 5:07 PM EST TC to pt, notified of provider response. He verbalized understanding. Logan Aviles LPN * Telephone Encounter - Abena Beckford APRN.TRANSPORTATION DISPATCH MANAGER - 11/03/2022 4:51 PM EST Can please let patient know that I received his xray results. It does look like he has 4 fractured ribs on the left. I did reach out to [facility] and his CT report was addended. Please keep usupdated on how he is doing. Abena Beckford APRN.CNP documented in this encounterOhio State Harding Hospital12-12-2022 History of Present illness Narrative* Charlene [...] DATA: Not applicable SIGNED BY: RT Lg(R) November 02, 2022 11:47 AM documented in this encounterOhio State Harding Hospital12-12-2022 Instructions* Patient Instructions* Abena Beckford APRN.CNP - 11/02/2022 11:40 AM EST Get the xray. Continue ibuprofen. Ice to the back. Let us know if no improvement/worsening. documented in this encounterOhio State Harding Hospital12-12-2022 History of Present illness Narrative* Abena Beckford APRN.CNP - 11/02/2022 11:14 AM EST This is a 72 year old male who presents today with: Patient presents with: ER F/U: [facility] ER follow up 10/27 dx: broken ribs after falling at home HISTORY OF PRESENT ILLNESS: Miroslava Peralta is a 72 year old male. Patient presents with: ER F/U: [facility] ER follow up 10/27 dx: broken ribs [...] 1991 Hip arthritis HTN (hypertension) Leukocytosis 1986 [facility] admission - thought leukemia and he refused [...] use: No Comment: Quit drugs in . EXAM: BP 144/88 Pulse 79 Resp 18 [...] as needed for worsening/no improvement. Abena Beckford APRN.TRANSPORTATION DISPATCH MANAGER documented in this encounterOhio State Harding Hospital11-09-2022 NoteHNO ID: [id number] Author: Brock Portillo MD Service: ? Author [...] DATE: September 30, 2022 TIME: 8:21 AM PAGER:[facility] [id number] Miscellaneous Notes* Telephone Encounter - Yudy Nelson [...] endo Telephone on 09/27/22 CONSULT TO ENDOCRINOLOGY Thanks, Duong Zaidi PA-C documented in this encounterOhio State Harding Hospital10-28-2022 Miscellaneous Notes* Telephone Encounter - Marbella Zaidi PA-C - 09/18/2022 7:09 AM EDT I reviewed MRI with him at the as below Please let him know Dr. Portillo wrote he will set up a phone f/u. Thanks, Duong Zaidi PA-C * Telephone Encounter - Barbara Chao - 09/17/2022 1:46 PM EDT Patient is calling back wondering if somebody can call him to go over his MRI results. Please advise, augusto * Telephone Encounter - Hazel Fengwale HUERTAS - 09/16/2022 4:53 PM EDT Patient calling asking if you could give him his MRI results please. Please advise 08/28/2022 1:38 PM - Radiology, Oru In Impression IMPRESSION: Cervical spondylosis as described worst at C3-C4 moderate to severe canal narrowing and mild chronic cord compression, without abnormal cord signal. Anatomic Variant: None. Assume 7 cervical vertebrae with counting from the craniocervical junction. Bicycle Rental Clerk: AMANDA Transcribe Date/Time: Aug 28 2022 1:31P Dictated by : JOSHUA SIVLA MD This examination was interpreted and the report reviewed and electronically signed by: JOSHUA SILVA MD on Aug 28 2022 1:35PM EST Results-Findings * * *Final Report* * * DATE OF EXAM: Aug 28 2022 1:23PM [facility] 0297 - MRI CERVICAL SPINE WO IVCON [...] T1-T2, T2-T3, and T3-T4. documented in this encounterOhio State Harding Hospital10-21-2022 Miscellaneous Notes* Telephone Encounter - Marialuisa Mishra LPN - 09/11/2022 1:13 PM EDT Please file this new order. * Telephone Encounter - Yudy Nelson Ma - 09/11/2022 8:01 AM EDT Please refile order documented in this encounterCleveland [id number] History of Present illness Narrative* M Ignacio Zaidi PA-C - 09/10/2022 11:00 AM EDT 72 year old male with c/o here for 3 mo follow up Current concerns about recent MRI results and wants to know next step. Essential hypertension Current meds: Amlodipine 10mg daily Lisinopril 20mg daily Ucxhhtruu179rh HS Patient is compliant with meds Yes [...] Dr. Bhat. ESR 29, CK 554 (weight kelp cutter). Neg: Lead, B2 microglubulin, B12, CMP, CBC/dif. [...] 1991 Hip arthritis HTN (hypertension) Leukocytosis 1987 [place] admission - thought leukemia and he refused [...] up. Marbella Zaidi PA-C documented in this encounterOhio State Harding Hospital10-07-2022 History of Present illness Narrative* Yudy Bishop, RT(R) - 08/28/2022 1:00 PM EDT Radiology Service [...] IV DATA: Not applicable SIGNED BY: RT Earl(Galen) August 28, 2022 1:19 PM documented in this encounterOhio State Harding Hospital09-19-2022 History of Present illness Narrative* Brock [...] TIME: 10:55 AM PAGER: documented in this encounterOhio State Harding Hospital09-12-2022 Miscellaneous Notes* Telephone Encounter - Marilee Ceballos [facility] - 08/03/2022 2:20 PM EDT Pharmacy verified in [facility] Patient has been identified by name and [...] advise. Marilee Ceballos Pss documented in this encounterOhio State Harding Hospital08-13-2022 Miscellaneous Notes* Telephone Encounter - Hazel [...] Thanks, Duong Zaidi PA-C documented in this encounterOhio State Harding Hospital08-10-2022 History of Present illness Narrative* Yudy Bishop, RT(R) - 07/01/2022 11:20 AM EDT Radiology Service [...] 2022 TIME: 12:15 PM documented in this encounterOhio State Harding Hospital07-28-2022 History of Present illness Narrative* Gracy Sears APRN.TRANSPORTATION DISPATCH MANAGER - 06/18/2022 11:30 AM EDT Images from the original note were not included. [facility] [place] Follow-up Visit Follow-up note June 18, 2022 [...] 1991 Hip arthritis HTN (hypertension) Leukocytosis 1986 [place] admission - thought leukemia and he refused [...] 3. Moderate left L3-4 and L4-5 and gffh-ji-kvrfmflz same level neural foraminal narrowing. Component Latest [...] 06/18/22 CONSULT TO PHYSICAL THERAPY Gracy Sears APRN.MYRA I spent a total of 38 minutes on the date of the service which included preparing to see the patient, pzmx-xp-wuxk patient care, completing clinical documentation, obtaining and/or reviewing separately obtained history, performing a medically appropriate examination, counseling and educating the pat ient/family/caregiver, ordering medications, tests, or procedures and communicating results to the patient/family/caregiver. documented in this encounterOhio State Harding Hospital07-20-2022 Miscellaneous Notes* Telephone Encounter - Karis Larson Ma - 06/10/2022 6:01 PM EDT Patient left detailed message provider would like to do MRI of brain. Please call to schedule Karis Larson Ma documented in this encounterOhio State Harding Hospital07-08-2022 Miscellaneous Notes* Telephone Encounter - Yudy Nelson Ma - 05/29/2022 3:30 PM EDT Sent to [facility] on 05/22/22 * Telephone Encounter - Jayla Haywood [facility] - 05/29/2022 2:16 PM EDT Patient has been identified by name and date of : Yes Pending Prescriptions Disp Refills LISINOPRIL 20 MG TABLET 90 tablet 3 Sig: Take 1 tablet by mouth once daily. LOS: No RX INSTRUCTIONS: Patient aware RX will be sent to pharmacy. No need to notify patient. [facility] Electron[facility] signed by Jayla Haywood [facility] at 05/29/2022 2:18 PM EDT documented in this encounterOhio State Harding Hospital07-08-2022 Miscellaneous Notes* Telephone Encounter - Gina Khanna - 05/29/2022 2:26 PM EDT Pending Prescriptions Disp Refills METHOCARBAMOL 750 MG TABLET 28 tablet 0 Sig: Take 1 tablet by mouth four times daily as needed. LOS: No documented in this encounterOhio State Harding Hospital07-01-2022 Miscellaneous Notes* Telephone Encounter - Lilia [...] notify patient. Lilia Maza documented in this encounterOhio State Harding Hospital06-21-2022 History of Present illness Narrative* Marbella [...] 1.00 - 4.00 k/uL 0.41 (L) 1.09 [place]% % 2.1 12.7 Abs [place] <0.87 k/uL 0.18 0.90 (H) Eosin% % [...] 1991 Hip arthritis HTN (hypertension) Leukocytosis 1986 [place] admission - thought leukemia and he refused [...] Marbella Zaidi PA-C C documented in this encounterOhio State Harding Hospital06-16-2022 History of Present illness Narrative* Sanjay [...] No jaundice or rash. No petechiae. NEUROLOGIC: front elevator operator II-XII are grossly intact. No focal [...] Abs Lymph 1.00 - 4.00 k/uL 1.09 [place]% % 12.7 Abs [place] <0.87 k/uL 0.90 (H) Eosin% % 2.7 [...] Review Reviewed by Francheska Gao MD PhD ([id number]) Reviewed by Tye Meeks M.D., PhD ([id number]) Reviewed by To Meeks MD, Ph.D ([id number]) Interpretation Comment for Protein Electrophoresis See separate immunofixation report for characterization of monoclonal gammopathy. Component Latest Ref Rng & Units 05/05/2022 MPA Result No M protein is identified. M protein is present. (A) Interpretation (MPA) Atypical restricted bands are present in the IgM and kappa regions. Consistentwith IgM kappa monoclonal gammopathy. Staff Review (MPA) Reviewed by To Meeks MD, Ph.D ([id number]) Component Latest Ref Rng & Units 04/05/2021 [...] Urine 0.00 gm/24 Hr 0.00 Staff Review ([id number]) Reviewed by Smitha Benoit MD ([id number]) Result ([facility]) No M protein is identified. A poorly defined region of restricted mobility is presentthat may represent an M (A) . . . Interpretation ([facility]) SEE COMMENT Staff Review ([facility]) Reviewed by Smitha Benoit MD ([id number]) Component Latest Ref Rng & Units 04/11/2021 [...] that represent 5-10% of the total cellularity. [place] and lambda stains are difficult to interpret [...] care. Sanjay Bhat DO documented in this encounterOhio State Harding Hospital06-15-2022 Miscellaneous Notes* Telephone Encounter - Logan Aviles LPN - 05/06/2022 11:17 AM EDT Pt notified. He verbalized understanding. Logan Aviles LPN * Telephone Encounter - Logan Aviles LPN - 05/06/2022 11:00 AM EDT ----- Message from Navin Ackerman MD sent at 05/06/2022 8:31 AM EDT ----- Let him know his sugar was ok. Navin Ackerman MD documented in this encounterOhio State Harding Hospital05-26-2022 NoteHNO ID: [id number] Author: Mayra Gale PA-C Service: ? Author Type: Physician Rn Circulating Type: Progress Notes Filed: 04/16/2022 12:27 PM [...] which included preparing to see the patient, zdpe-lb-mthe patient care, completing clinical documentation, obtaining and/or reviewing separately obtained history, performing a medically appropriate examination and counseling and educating the patient/family/caregiver. SIGNATURE: Mayra Gale PA-C PATIENT NAME: Miroslava Peralta DATE: April 16, 2022 TIME: 12:22 PM PAGER:[facility] [id number] History of Present illness Narrative* Mayra Gale [...] which included preparing to see the patient, xjjd-vf-vadq patient care, completing clinical documentation, obtaining and/or reviewing separately obtained history, performing a medically appropriate examination and counseling and educating the patient/family/caregiver. SIGNATURE: Mayra Gale PA-C PATIENT NAME: Miroslava Peralta DATE: April 16, 2022 TIME: 12:22 PM PAGER: documented in this encounterOhio State Harding Hospital05-24-2022 Miscellaneous Notes* Telephone Encounter - SEAN Robert 04/14/2022 2:25 PM EDT Beth notified. Malika Reddy MA * Telephone Encounter - Navin Ackerman MD - 04/14/2022 2:10 PM EDT Ok to do * Telephone Encounter - Rachel Akhtar RN - 04/14/2022 1:42 PM EDT Beth, OT calling from [facility] to report plan of care for patient and OT will visit patient 2 times a week for 3 weeks. Beth also requesting a verbal order piece dye worker to come into home and help patient with community resources. Please review and Advise, Rachel Akhtar RN documented in this encounterOhio State Harding Hospital05-19-2022 History of Present illness Narrative* RT Cheryl(R) - 04/09/2022 1:00 PM EDT Radiology Service [...] 09, 2022 12:46 PM documented in this encounterOhio State Harding Hospital05-17-2022 Miscellaneous Notes* Telephone Encounter - Rachel Akhtar RN - 04/07/2022 1:22 PM EDT Micheal calling from [facility] to report plan of care for patient and [facility] willvisit patient 2 times a week for 4 weeks and 1 time a week for 2 weeks. [facility] will work with patient on monitoring wound from surgery. No call back needed if agreeable. Rachel Akhtar RN documented in this encounterOhio State Harding Hospital05-16-2022 History of Present illness Narrative* Yudy Jay RN - 04/06/2022 2:53 PM EDT TCM Home Visit Referral Source of Stratification: [facility] Admission Status: Discharged Readmission Risk Score: [...] on Oxycodone Ambulates with a wheeled walker [facility] RN is visiting today Eating and drinking normally Good UOP/BM normal Advised to call Neurosurgery with new/worsening symptoms Yudy Jay RN SUMMARY: Pt discharged from [facility] on 04/04/22. Admitted for: Abscess I&D Contact made with patient: Yes Hi my name is Yudy Jay RN and I am calling [facility] on behalf of your PCP, Navin [...] like to speak with a social work fast food team member to help give you support for any [...] I will send your request to a quality assurance assistant who will contact and assist you with [...] the way if possible). documented in this encounterOhio State Harding Hospital05-16-2022 Miscellaneous Notes* Telephone Encounter - Aracelis [...] seen today Doreen Casas documented in this encounterOhio State Harding Hospital05-16-2022 Miscellaneous Notes* Telephone Encounter - Yudy Rosa MA - 04/06/2022 10:44 AM EDT At appointment time, 10 am, pt was not checked in. Went to lobby/waiting room and hallway to check for pt. Pt was not in either location . documented in this encounterOhio State Harding Hospital05-13-2022 NoteHNO ID: [id number] Author: Steve Jo PA-C Service: Neurosurgery Author Type: Physician Rn Circulating Type: Progress Notes Filed: 04/03/2022 3:44 PM Note Text: NEUROSURGERY POST OP PROGRESS NOTE SERVICE DATE: 04/03/2022 SERVICE TIME: 3:43 PM POST OP DAY: # 2 SUBJECTIVE The patient reports pain is well controlled. No LERMA or dizziness. OBJECTIVE General: AANDOx 3, NAD, [...] DATE: April 03, 2022 TIME: 3:43 PM ETX#[id number] HospitalKiwvopaw07-13-0314 NoteHNO ID: [id number] Author: Jessy Finley PA-C Service: Neurosurgery Author Type: Physician Rn Circulating Type: Progress Notes Filed: 04/02/2022 11:26 AM Note Text: NEUROSURGERY POST OP PROGRESS NOTE SERVICE DATE: 04/02/2022 SERVICE TIME: 0900 POST OP DAY: # 1 SUBJECTIVE Mr. Peralta is doing well this morning. He reports incisional pain, somewhat controlled on current regimen. He denies pain, numbness, weakness, itngling to extremities. He denies LERMA. He state he is not able to [...] (ROBAXIN) 750 mg ORAL QID PRN - [JAN Hold due to Transfer] dexAMETHasone sodium phosphate [...] for 48 hrs - Pain control per JAN - Continue drain - Will increase trazodone for sleep - Will increase oxycodone to 5-10mg Q4 PRN, please go back down to 5mg when patient is up walkong as he reports unsteady gait at 10mg dose Please call with questions or changes SIGNATURE: Jessy Finley PA-C PATIENT NAME: Miroslava Peralta DATE: April 02, 2022 TIME: 9:16 AM ETX#[id number] NoteHNO ID: [id number] Author: Anna Desai APRN.DATA VIRTUALIZATION CONSULTANT Service: Anesthesiology Author Type: Nurse Irrigator Type: Anesthesia Procedure Notes Filed: 04/01/2022 5:40 PM Note Text: ANESTHESIOLOGY PROCEDURE NOTE PIV General Information Procedure Start Time/Medication Administration: 04/01/2022 5:20 PM Patient Location: OR Staffing DATA VIRTUALIZATION CONSULTANT: Anna Desai APRN.DATA VIRTUALIZATION CONSULTANT Performed by: DATA VIRTUALIZATION CONSULTANT Preparation Sterility Preparation: hand hygiene performed prior to procedure, surgical cap used, mask used, skin prep agent completely dried prior to procedure Site Prep: Chloraprep Procedure Details Indication: need for IV access Needle Size/Type: 18 gauge angiocath Orientation: Left Location: Wrist Imaging Guidance Used: No SIGNATURE: Anna Desai APRN.CRNA PATIENT NAME: Miroslava Wellertaw DATE: April 01, 2022 TIME: 5:39 PM CSN: [id number] NoteHNO ID: [id number] Author: Anna Desai APRN.DATA VIRTUALIZATION CONSULTANT Service: Anesthesiology Author Type: Nurse Irrigator Type: Anesthesia Procedure Notes Filed: 04/01/2022 5:39 PM Note Text: ANESTHESIOLOGY PROCEDURE NOTE Airway General Information Procedure Start Time/Medication Administration: 04/01/2022 5:08 PM Patient location during procedure: OR Timeout Performed Pre-procedure: timeout performed Consent Obtained: Yes Patient identity confirmed: arm band, care fast food team member and patient Staffing Anesthesiologist: Larry Mc MD DATA VIRTUALIZATION CONSULTANT: Anna Desai APRN.DATA VIRTUALIZATION CONSULTANT Performed by: DATA VIRTUALIZATION CONSULTANT Indications and Patient Condition Preoxygenated: yes Patient [...] Miroslava Monzonw DATE: April 01, 2022 TIME: 5:38 PM CSN: [id number] Miscellaneous Notes* Telephone Encounter - Malika Reddy MA - 04/01/2022 3:11 PM EDT Giselle notified. * Telephone Encounter - Navin Ackerman MD - 04/01/2022 3:05 PM EDT ok * Telephone Encounter - Zita Palmer LPN - 04/01/2022 2:53 PM EDT Christina with [facility] calling and states pt will be released from [facility] in a couple days and asking if you will follow and sign for nursing home, PT and OT. Pt had a right hip replacement and a laminectomy and started with back pain after procedure. Please advise Giselle back with verbal order. Christina will be off. [phone]. Zita Palmer LPN documented in this encounterOhio State [facility]ing Hospital05-10-2022 NoteHNO ID: [id number] Author: Jessy Finley PA-C Service: Neurosurgery Author Type: Physician Rn Circulating Type: Progress Notes Filed: 03/31/2022 3:50 PM [...] Prophylaxis/Anticoagulants 03/29/22 1030 activity - mobilize patient (mo,oh) VTE Prophylaxis: VTE prophylaxis appropriate SIGNATURE: Jessy Finley PA-C PATIENT NAME: Miroslava Peralta DATE: March 31, 2022 TIME: 2:52 [facility]05-09-2022 NoteHNO ID: [id number] Author: Jessy Finley PA-C Service: Neurosurgery Author Type: Physician Rn Circulating Type: Progress Notes Filed: 03/30/2022 11:47 AM [...] has been clear, not bloody. He Denies LERMA. Per RN patient requiring dressing changes x3 [...] Units SUBCUTANEOUS EVERY 12 HOURS Given, 03/30 0803/29/22 1026 -- 03/29/22 1030 activity - mobilize patient (mo,oh) VTE Prophylaxis: VTE prophylaxis appropriate SIGNATURE: Jessy Finley PA-C PATIENT NAME: Miroslava Peralta DATE: March 30, 2022 TIME: 11:09 [facility]05-06-2022 Miscellaneous Notes* Telephone Encounter - Cecily Palafox [...] in. Cecily Palafox Pss documented in this encounterOhio State Harding Hospital05-05-2022 Miscellaneous Notes* Telephone Encounter - Tiffany [...] 12:23 PM EDT Spoke to Carey from [facility] She wanted us to be aware that pt is having a lot of pain in am & is using Meloxicam & Naprosyn with his oxy to get it under control * Telephone Encounter - Vanessa Odom - 03/26/2022 12:16 PM EDT Nurse from [facility] at [phone] ext [phone] wanted to speak to the nurse in regards to this patients condition, he is having pain. documented in this encounterOhio State Harding Hospital05-03-2022 History of Present illness Narrative* Tabatha [...] Post op 04/06/22 SUMMARY: Pt discharged from [facility] on 03/22/22. Admitted for: elective surgery [...] RN and I am calling [facility] the [facility] on behalf of your PCP,Navin Ackerman [...] like to speak with a social work fast food team member to help give you support for any [...] I will send your request to a quality assurance assistant who will contact and assist you with [...] TCM Home Visit Referral Source of Stratification: [facility] Admission Status: Discharged Readmission [...] left voice message with call back number [phone]. Will attempt another patient outreach tomorrow. Transitions of Care Critical Issues: SPECIALIST FOLLOW-UP: Follow up with Neurosurgery on 04/06/2022 SUMMARY: Pt discharged from [facility] on 03/22/22. Admitted for: elective surgery [...] on next Outreach ended documented in this encounterOhio State Harding Hospital05-01-2022 NoteHNO ID: [id number] Author: MARGARITA Lau Service: Care Management Author Type: Frame Wirer Type: Care Mgt Progress Note Filed: 03/22/2022 [...] Physician Primary Care Physician Name/Phone: David Ackerman [phone] TRANSPORTATION ARRANGEMENTS: Transportation Arrangements: Car ADDITIONAL CONTACT RESOURCES: Saima Peralta [phone] Pt cleared for discharge. Pt will discharge [...] 22, 2022 TIME: 11:08 AM PAGER/CONTACT #: [phone] [id number] NoteHNO ID: [id number] Author: Jori Benitez MD Service: General Internal Medicine Author Type: Physician Type: Progress Notes Filed: 03/21/2022 11:08 AM Note Text: PROGRESS NOTE - INTERNAL MEDICINE PATIENT NAME: Miroslava Peralta SERVICE DATE: March 21, 2022 SERVICE TIME: 11:07 AM PCP: Nvain Ackerman MD ADMITTING PHYSICIAN: Brock Portillo MD [...] Disp: 540 capsule, Rfl: 0, 03/19/2022 at 2000 amLODIPine (NORVASC) 10 mg tablet, Take 1 [...] Pain, Right Primary Localized (more content not included)...[id number] Note HNO ID: [id number] Author: Michael Horner APRN.TRANSPORTATION DISPATCH MANAGER Service: Neurosurgery Author Type: Nurse Practitioner Type: [...] VTE Prophylaxis/Anticoagulants 03/21/22 0930 graduated compression stockings (mo,sd) 03/21/22 0930 activity - mobilize patient (mo,oh) 03/20/22 1245 vte pharmacologic prophylaxis contraindicated (mo,oh) 03/20/22 1245 pneumatic compression stockings (mo,sd) VTE Prophylaxis: continue bilateral TEDs and SCDs. [...] Dr. Portillo via phone SIGNATURE: Michael Horner APRN.TRANSPORTATION DISPATCH MANAGER PATIENT NAME: Miroslava Peralta DATE: March 21, 2022 TIME: 10:42 AM ETX#[id number] NoteHNO ID: [id number] Author: Merary Francis MD Service: Anesthesiology Author [...] March 20, 2022 TIME: 7:56 AM CSN: [id number] NoteHNO ID: [id number] Author: Logan Lunsford [facility] Service: Pharmacy Author Type: Pharmacist Type: Progress [...] any questions or concerns. SIGNATURE: Logan Lunsford [facility] DATE/TIME: 03/20/2022 7:11 [facility]04-28-2022 History of Present illness Narrative* Gracy Sears APRN.TRANSPORTATION DISPATCH MANAGER - 03/19/2022 1:45 PM EDT Images from the original note were not included. [facility] [place] Follow-up Visit Follow-up note March 19, 2022 [...] 1991 Hip arthritis HTN (hypertension) Leukocytosis 1986 [facility] admission - thought leukemia and he refused [...] 3. Moderate left L3-4 and L4-5 and [id number] same level neural foraminal narrowing. Component Latest [...] XR CERV OTHER 4V AP/LAT/OBL Gracy Sears APRN.TRANSPORTATION DISPATCH MANAGER I spent a total of 30 minutes on the date of the service which included preparing to see the patient, [id number] patient care, completing clinical documentation, obtaining and/or reviewing separately obtained history, performing a medically appropriate examination, counseling and educating the pat ient/family/caregiver and ordering medications, tests, or procedures. PDMP website checked and validated. All prescriptions have been APPROPRIATELY filled. No suspiciousactivity was identified. March 19, 2022 Gracy Sears APRN.TRANSPORTATION DISPATCH MANAGER documented in this encounterOhio State Harding Hospital04-11-2022 Miscellaneous Notes* Telephone Encounter - Marialuisa [...] up. Marialuisa Mishra LPN documented in this encounterOhio State Harding Hospital04-07-2022 History of Present illness Narrative* Pamela Sparrow MA - 02/26/2022 11:10 AM EDT POPULATION HEALTH NAVIGATION OUTREACH Action/FYI Spoke with patient and scheduled BP follow up on 03/30/22. Patient declined my chart and will discuss AD at his PAT testing appt before his surgery on 03/20/22. Pt identified by name and : YES, via phone Outreach Outcome/Action Spoke to patient or caregiver: Patient scheduled Reason for Outreach Care Gap or Scheduling/Wellness visits Payer: Payor: [employer] MEDICARE / Plan: [employer] / Product Type: HMO / Care Gap [...] 26, 2022 11:15 AM documented in this encounterOhio State Harding Hospital04-04-2022 Instructions* Patient Instructions* Sonia Watts APRN.CNP - 02/23/2022 10:03 AM EDT PATIENT PREOPERATIVE INSTRUCTIONS Steve Jo PA-C has scheduled you for your procedure at this surgery center: [facility]: [phone] --[phone] [place] [address]. On your scheduled day of surgery, please [...] Procedures: - YOU MUST HAVE A RESPONSIBLE BACK PADDER TAKE YOU HOME. A SENIOR PEOPLESOFT DEVELOPER OR DIRECTOR OF SOCIAL MEDIA MARKETING CANNOT BE MADE A RESPONSIBLE BACK PADDER. - We recommend that a responsible person [...] Advance Directive, please fax a copy to [phone] or email to for it to be [...] into your chart that day. Sonia Watts APRN.MYRA documented in this encounterOhio State Harding Hospital04-04-2022 History and physical note * Sonia [...] rx . No history of TIA's, stroke, LORRY WEIGHER tumor, impaired sensorium, hemiplegia, paraplegia or quadraplegia. [...] CHF, congenital heart defect, DVT/PE, hyperlipidemia, recent ID, murmur/valvular heart disease, open heart surgery and [...] as necessary for today's visit. Monique Kim APRN.TRANSPORTATION DISPATCH MANAGER. No history of bleeding or clotting disorder. [...] 1991 Hip arthritis HTN (hypertension) Leukocytosis 1986 [facility] admission - thought leukemia and he refused [...] or any previous visit (from the past 60324 hour(s)). Assessment Chronic hepatitis C without hepatic [...] Airway History: No history of difficult airway [id number] Score: Age: 65-74 Sex: Male CHF history: [...] and consent discussed: yes. Patient / Responsible Democrat agrees to proceed: yes Patient / Surrogate [...] [facility] or Procedure: Answer: Jew ECG COMPLETE Standing Status: Future Standing Expiration Date: 02/23/2023 Planned Anesthetic: other anesthesia choice Instructions Given to Patient: Instructions located in the after visit summary. Patient given verbal and written preop instructions and voices comprehension and compliance. SIGNATURE: Sonia Watts APRN.CNP PATIENT NAME: Miroslava Peralta DATE: February 23, 2022 TIME: 10:00 AM PAGER/CONTACT #: documented in this encounterOhio State Harding Hospital03-30-2022 Miscellaneous Notes* Telephone Encounter - Gracy [...] advise, Rachel Akhtar RN documented in this encounterOhio State Harding Hospital02-07-2022 History of Present illness Narrative* Brock Portillo MD - 12/29/2021 9:46 AM EST Images from the original note were not included. SPINE SURGERY NEW PATIENT PCP: Navin Ackerman MD REFERRING PROVIDER: Dr. Sanjay Young SUBJECTIVE HISTORY OF PRESENT ILLNESS: Miroslava ePralta is a 71 year old male. CHIEF [...] 1991 Hip arthritis HTN (hypertension) Leukocytosis 1986 [facility] admission - thought leukemia and he refused [...] TIME: 9:46 AM PAGER: documented in this encounterOhio State Harding Hospital11-09-2021 History of Present illness Narrative* Janina Izquierdo RT(R) - 09/30/2021 3:45 PM EST Radiology [...] 30, 2021 3:55 PM documented in this encounterOhio State Harding Hospital08-29-2021 History of Past illness Narrative* Problem [...] Dr. Bhat. ESR 29, CK 554 (weight kelp cutter). Neg: Lead, B2 microglubulin, B12, CMP, CBC/dif. [...] of this encounter (statuses as of 03/24/2022) [facility] History of Past illness Narrative* Problem [...] Dr. Bhat. ESR 29, CK 554 (weight kelp cutter). Neg: Lead, B2 microglubulin, B12, CMP, CBC/dif. [...] of this encounter (statuses as of 03/26/2022) [facility] History of Past illness Narrative* Problem [...] Dr. Bhat. ESR 29, CK 554 (weight kelp cutter). Neg: Lead, B2 microglubulin, B12, CMP, CBC/dif. [...] of this encounter (statuses as of 03/27/2022) [facility] History of Past illness Narrative* Problem [...] Dr. Bhat. ESR 29, CK 554 (weight kelp cutter). Neg: Lead, B2 microglubulin, B12, CMP, CBC/dif. [...] of this encounter (statuses as of 04/01/2022) [facility] History of Past illness Narrative* Problem [...] Dr. Bhat. ESR 29, CK 554 (weight kelp cutter). Neg: Lead, B2 microglubulin, B12, CMP, CBC/dif. [...] of this encounter (statuses as of 04/06/2022) [facility] of Past illness Narrative* Problem [...] Dr. Bhat. ESR 29, CK 554 (weight kelp cutter). Neg: Lead, B2 microglubulin, B12, CMP, CBC/dif. [...] of this encounter (statuses as of 04/06/2022) [facility] of Past illness Narrative* Problem [...] Dr. Bhat. ESR 29, CK 554 (weight kelp cutter). Neg: Lead, B2 microglubulin, B12, CMP, CBC/dif. [...] of this encounter (statuses as of 04/10/2022) [facility] of Past illness Narrative* Problem [...] Dr. Bhat. ESR 29, CK 554 (weight kelp cutter). Neg: Lead, B2 microglubulin, B12, CMP, CBC/dif. [...] of this encounter (statuses as of 04/14/2022) [facility] of Past illness Narrative* Problem [...] Dr. Bhat. ESR 29, CK 554 (weight kelp cutter). Neg: Lead, B2 microglubulin, B12, CMP, CBC/dif. [...] of this encounter (statuses as of 04/16/2022) [facility] of Past illness Narrative* Problem [...] Dr. Bhat. ESR 29, CK 554 (weight kelp cutter). Neg: Lead, B2 microglubulin, B12, CMP, CBC/dif. [...] of this encounter (statuses as of 05/04/2022) [facility] of Past illness Narrative* Problem [...] Dr. Bhat. ESR 29, CK 554 (weight kelp cutter). Neg: Lead, B2 microglubulin, B12, CMP, CBC/dif. [...] of this encounter (statuses as of 05/06/2022) [facility] of Past illness Narrative* Problem [...] Dr. Bhat. ESR 29, CK 554 (weight kelp cutter). Neg: Lead, B2 microglubulin, B12, CMP, CBC/dif. [...] of this encounter (statuses as of 05/07/2022) [facility] of [facility] Narrative* Problem [...] Dr. Bhat. ESR 29, CK 554 (weight kelp cutter). Neg: Lead, B2 microglubulin, B12, CMP, CBC/dif. [...] of this encounter (statuses as of 05/12/2022) [facility] of [facility] Narrative* Problem [...] Dr. Bhat. ESR 29, CK 554 (weight kelp cutter). Neg: Lead, B2 microglubulin, B12, CMP, CBC/dif. [...] of this encounter (statuses as of 05/22/2022) [facility] of [facility] Narrative* Problem [...] Dr. Bhat. ESR 29, CK 554 (weight kelp cutter). Neg: Lead, B2 microglubulin, B12, CMP, CBC/dif. [...] of this encounter (statuses as of 05/29/2022) [facility] of [facility] Narrative* Problem [...] Dr. Bhat. ESR 29, CK 554 (weight kelp cutter). Neg: Lead, B2 microglubulin, B12, CMP, CBC/dif. [...] of this encounter (statuses as of 05/29/2022) [facility] of [facility] Narrative* Problem [...] Dr. Bhat. ESR 29, CK 554 (weight kelp cutter). Neg: Lead, B2 microglubulin, B12, CMP, CBC/dif. [...] of this encounter (statuses as of 06/03/2022) [facility] of [facility] Narrative* Problem [...] Dr. Bhat. ESR 29, CK 554 (weight kelp cutter). Neg: Lead, B2 microglubulin, B12, CMP, CBC/dif. [...] of this encounter (statuses as of 06/22/2022) [facility] of [facility] Narrative* Problem [...] Dr. Bhat. ESR 29, CK 554 (weight kelp cutter). Neg: Lead, B2 microglubulin, B12, CMP, CBC/dif. [...] of this encounter (statuses as of 07/02/2022) [facility] of [facility] Narrative* Problem [...] Dr. Bhat. ESR 29, CK 554 (weight kelp cutter). Neg: Lead, B2 microglubulin, B12, CMP, CBC/dif. [...] of this encounter (statuses as of 07/04/2022) [facility] Narrative* Problem [...] Dr. Bhat. ESR 29, CK 554 (weight kelp cutter). Neg: Lead, B2 microglubulin, B12, CMP, CBC/dif. [...] of this encounter (statuses as of 08/03/2022) [facility] Narrative* Problem [...] Dr. Bhat. ESR 29, CK 554 (weight kelp cutter). Neg: Lead, B2 microglubulin, B12, CMP, CBC/dif. [...] of this encounter (statuses as of 08/10/2022) [facility] Narrative* Problem [...] Dr. Bhat. ESR 29, CK 554 (weight kelp cutter). Neg: Lead, B2 microglubulin, B12, CMP, CBC/dif. [...] of this encounter (statuses as of 08/29/2022) [facility] Narrative* Problem [...] Dr. Bhat. ESR 29, CK 554 (weight kelp cutter). Neg: Lead, B2 microglubulin, B12, CMP, CBC/dif. [...] of this encounter (statuses as of 09/10/2022) [facility] Narrative* Problem [...] Dr. Bhat. ESR 29, CK 554 (weight kelp cutter). Neg: Lead, B2 microglubulin, B12, CMP, CBC/dif. [...] of this encounter (statuses as of 09/11/2022) [facility] Narrative* Problem [...] Dr. Bhat. ESR 29, CK 554 (weight kelp cutter). Neg: Lead, B2 microglubulin, B12, CMP, CBC/dif. [...] of this encounter (statuses as of 09/28/2022) [facility] Narrative* Problem [...] Dr. Bhat. ESR 29, CK 554 (weight kelp cutter). Neg: Lead, B2 microglubulin, B12, CMP, CBC/dif. [...] of this encounter (statuses as of 11/02/2022) [facility] Narrative* Problem [...] Dr. Bhat. ESR 29, CK 554 (weight kelp cutter). Neg: Lead, B2 microglubulin, B12, CMP, CBC/dif. [...] of this encounter (statuses as of 11/03/2022) [facility] Narrative* Problem [...] Dr. Bhat. ESR 29, CK 554 (weight kelp cutter). Neg: Lead, B2 microglubulin, B12, CMP, CBC/dif. [...] of this encounter (statuses as of 11/05/2022) [facility] Narrative* Problem [...] Dr. Bhat. ESR 29, CK 554 (weight kelp cutter). Neg: Lead, B2 microglubulin, B12, CMP, CBC/dif. [...] of this encounter (statuses as of 11/13/2022) [facility] of Present illness Narrative* Charlene Pablo, RT(R) - 07/04/2021 2:00 PM EDT Radiology [...] 04, 2021 1:57 PM documented in this encounterOhio State Harding Hospital01-22-2021 History of Present illness Narrative* Alicja Ivey Tech (Tech) - 12/13/2020 3:50 PM EST Radiology Service [...] 13, 2020 3:48 PM documented in this encounterOhio State Harding Hospital09-09-2010 History of Past illness Narrative* Problem Noted Date Resolved Date Diarrhea 07/31/2010 06/16/2019 documented as of this encounter (statuses as of 02/18/2022) [address] History of Past illness Narrative* Problem Noted Date Resolved Date Diarrhea 07/31/2010 06/16/2019 documented as of this encounter (statuses as of 02/23/2022) [facility] Narrative* Problem Noted Date Resolved Date Diarrhea 07/31/2010 06/16/2019 documented as of this encounter (statuses as of 02/23/2022) [address] History of Past illness Narrative* Problem Noted Date Resolved Date Diarrhea 07/31/2010 06/16/2019 documented as of this encounter (statuses as of 02/26/2022) [address] History of Past illness Narrative* Problem Noted Date Resolved Date Diarrhea 07/31/2010 06/16/2019 documented as of this encounter (statuses as of 03/02/2022) [address] History of Past illness Narrative* Problem Noted Date Resolved Date Diarrhea 07/31/2010 06/16/2019 documented as of this encounter (statuses as of 03/04/2022) [address] History of Past illness Narrative* Problem Noted Date Resolved Date Diarrhea 07/31/2010 06/16/2019 documented as of this encounter (statuses as of 03/19/2022) [address] History of Past illness Narrative* Problem Noted Date Resolved Date Diarrhea 07/31/2010 06/16/2019 documented as of this encounter (statuses as of 03/20/2022) [facility] Spinal stenosis of lumbar region with neurogenic claudication Spinal stenosis, lumbar region, with neurogenic claudication Abnormality of gait Spinal stenosis of lumbar region with neurogenic claudication Spinal stenosis, lumbar region, with neurogenic claudication [facility] Pre-op testing Preoperative examination, unspecified [...] with neurogenic claudication [facility] Essential hypertension Unspecified essential hypertension Primary localized osteoarthrosis of left shoulder region Sleeping difficulty Sleep disturbance, unspecified Spinal stenosis of lumbar region with neurogenic claudication Spinal stenosis, lumbar region, with neurogenic claudication [facility] Diagnosis OPENED IN ERROR- Primary To allow closing an encounter opened in error (used in SmartSet) Spinal stenosis of lumbar region with neurogenic claudication Spinal stenosis, lumbar region, with neurogenic claudication [facility] Diagnosis Neuropathy associated with MGUS [...] with neurogenic claudication [facility] Diagnosis Impaired fasting blood sugar Impaired fasting glucose [facility] Diagnosis Pain in right hip- Primary Pain in joint, pelvic region and thigh [facility] Diagnosis S/P laminectomy Other postprocedural status [facility] Diagnosis Neck pain Cervicalgia Numbness and tingling of both upper extremities [facility] Diagnosis Spinal stenosis, lumbar region with neurogenic claudication- Primary [facility] Diagnosis MGUS (monoclonal gammopathy of unknown significance)- Primary Monoclonal paraproteinemia [facility] Diagnosis MGUS (monoclonal gammopathy of unknown significance)- Primary Monoclonal paraproteinemia [facility] Diagnosis Essential hypertension- Primary Unspecified [...] Dizziness and giddiness [facility] Diagnosis Neuropathy associated with MGUS [...] in cervical region [facility] Diagnosis Chronic vertigo Ataxia Lack of coordination Fall, subsequent encounter [facility] Diagnosis Sleeping difficulty Sleep disturbance, unspecified [facility] note* Diagnosis Cervical spondylosis with myelopathy- Primary Spinal stenosis of cervical region Spinal stenosis in cervical region [facility] Spinal stenosis of cervical region Spinal stenosis in cervical region [facility] Diagnosis Essential hypertension- Primary Unspecified [...] Hypogonadism in male [facility] Diagnosis Hypogonadism in male- Primary [facility] Diagnosis Testicular atrophy- Primary Atrophy of 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 Low serum follicle stimulating hormone (FSH) [facility]* Diagnosis Closed fracture of multiple ribs of left side with routine healing, subsequent encounter- Primary [facility]* Diagnosis Nonintractable headache, unspecified chronicity pattern, unspecified headache type- Primary [facility]* Diagnosis Hospital discharge follow-up- Primary Other follow-up examination Urinary incontinence, unspecified type Therapeutic opioid induced constipation S/P laminectomy Other postprocedural status Paresthesia of saddle area: Cauda equina ruled out Intractable back pain Backache, unspecified MGUS (monoclonal gammopathy of unknown significance) Monoclonal paraproteinemia Hypogonadism in male High serum follicle stimulating hormone (FSH) [facility] Diagnosis Periprosthetic fracture of femur [...] in cervical region [facility]* Diagnosis Neuropathy involving both lower extremities- [...] Dizziness and giddiness [facility]* Diagnosis 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- Primary Overflow incontinence of urine Overflow incontinence Dysuria [facility] Diagnosis 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, subsequent encounter- Primary [facility] Diagnosis 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, subsequent encounter- Primary Dislocation of hip joint prosthesis, subsequent encounter [facility] Diagnosis Dislocation of hip joint prosthesis, subsequent encounter- Primary 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, subsequent encounter Dislocation of prosthetic joint, initial encounter ([facility]) [facility] Diagnosis MGUS (monoclonal gammopathy of unknown significance)- Primary Monoclonal paraproteinemia [facility] Diagnosis MGUS (monoclonal gammopathy of unknown significance)- Primary Monoclonal paraproteinemia Anemia, unspecified type [facility] Dislocation of hip joint prosthesis, subsequent encounter- Primary 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, subsequent encounter [facility] Diagnosis Pain syndrome, chronic Chronic pain syndrome Post laminectomy syndrome Postlaminectomy syndrome, unspecified region Polyarthropathy Unspecified polyarthropathy or polyarthritis, site unspecified [facility] Diagnosis Primary hypertension- Primary Unspecified essential [...] Chronic pain syndrome [facility] Diagnosis Right flank pain- Primary Abdominal pain, unspecified site Microscopic hematuria [facility] Diagnosis Dislocation of hip joint prosthesis, subsequent encounter- Primary 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, subsequent encounter [facility] Diagnosis Pain syndrome, chronic- Primary Chronic [...] by other means [facility] Diagnosis DDD (degenerative disc disease), lumbar- Primary Degeneration of lumbar or lumbosacral intervertebral disc Paresthesia of saddle area: Cauda equina ruled out S/P laminectomy Other postprocedural status 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 Hip joint replacement by other means [facility] Diagnosis Right flank pain Abdominal pain, unspecified site Microscopic hematuria [facility] Diagnosis Urinary frequency- Primary [facility] Diagnosis Dislocation of hip joint prosthesis, subsequent encounter- Primary 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, subsequent encounter Spinal stenosis of cervical region Spinal stenosis in cervical region Spinal stenosis of lumbar region with neurogenic claudication Spinal stenosis, lumbar region, with neurogenic claudication Myelopathy (HCC) Unspecified disease of spinal cord Urinary incontinence, unspecified type [facility] Diagnosis Primary hypertension- Primary Unspecified essential [...] of other medications [facility] Diagnosis Acute cystitis without hematuria- Primary Acute cystitis Cervical myelopathy (HCC) Cervical spondylosis with myelopathy Spinal stenosis of lumbar region with neurogenic claudication Spinal stenosis, lumbar region, with neurogenic claudication [facility] Diagnosis Acute cystitis without hematuria Acute cystitis Cervical myelopathy (HCC) Cervical spondylosis with myelopathy Spinal stenosis of lumbar region with neurogenic claudication Spinal stenosis, lumbar region, with neurogenic claudication [facility] Diagnosis Urinary retention- Primary Retention of urine, unspecified Hydronephrosis, unspecified hydronephrosis type Cervical myelopathy (HCC) Cervical spondylosis with myelopathy Spinal stenosis of lumbar region with neurogenic claudication Spinal stenosis, lumbar region, with neurogenic claudication [facility] Diagnosis Benign prostatic hyperplasia with [...] with neurogenic claudication [facility] Diagnosis Patient left without being seen- Primary Surgical or other procedure not carried out because of patient's decision [facility] Diagnosis Hydronephrosis, unspecified hydronephrosis type- Primary Urinary retention Retention of urine, unspecified MUNA (acute kidney injury) ([facility]) Acute kidney failure, unspecified [facility] Diagnosis 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- Primary Overflow incontinence of urine Overflow incontinence Urinary retention Retention of urine, unspecified Hydronephrosis, unspecified hydronephrosis type Stage 3b chronic kidney disease (HCC) Frailty Senility without mention of psychosis At high risk for falls Personal history of fall [facility] Diagnosis Hospital discharge follow-up- Primary Other follow-up examination Acute urinary tract infection Urinary tract infection, site not specified Acute renal failure superimposed on stage 3a chronic kidney disease, unspecified acute renal failure type ([facility]) Frailty Senility without mention of psychosis At high risk for falls Personal history of fall Paresthesia of saddle area: Cauda equina ruled out DDD (degenerative disc disease), lumbar Degeneration of lumbar or lumbosacral intervertebral disc Intractable low back pain Lumbago Chronic vertigo S/P laminectomy Other postprocedural status MGUS (monoclonal gammopathy of unknown significance) Monoclonal paraproteinemia Hypogonadism in male [place] macroglobulinemia ([facility]) Macroglobulinemia [facility] Diagnosis Benign prostatic hyperplasia with incomplete [...] macroglobulinemia (HCC) Macroglobulinemia [facility] Diagnosis Urine retention- Primary Retention of urine, unspecified [facility] Diagnosis Urinary retention- Primary Retention of urine, unspecified 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 [facility] Diagnosis No-show for appointment- Primary [facility] Diagnosis Sleeping difficulty- Primary Sleep disturbance, unspecified Paresthesia of saddle area: Cauda equina ruled out Primary hypertension Unspecified essential hypertension Progressive focal motor weakness Muscle weakness (generalized) [facility] Diagnosis Labile hypertension- Primary Unspecified essential hypertension [facility] Diagnosis S/P laminectomy- Primary Other postprocedural status Post-op pain Other acute postoperative pain [facility] Diagnosis Abnormal urine- Primary Other nonspecific finding on examination of urine [facility] Diagnosis DDD (degenerative disc disease), [...] without hepatic coma [facility] Diagnosis Urine retention- Primary Retention of urine, unspecified Hydronephrosis, unspecified hydronephrosis type BPH with obstruction/lower urinary tract symptoms Hypertrophy of prostate with urinary obstruction and other lower urinary tract symptoms (LUTS) [facility] Diagnosis Hydronephrosis, unspecified hydronephrosis type- Primary [facility]* Diagnosis Problem with Hancock catheter, initial encounter (HCC)- Primary [facility] Diagnosis Urine retention- Primary Retention of urine, unspecified [facility] Diagnosis Pre-op testing Preoperative examination, unspecified [...] of urine, unspecified [facility] Diagnosis Pre-op testing Preoperative examination, unspecified [...] of urine, unspecified [facility] Diagnosis Pre-op testing Preoperative examination, unspecified [...] of urine, unspecified documented in this encounter [facility]* Diagnosis Pre-op testing Preoperative examination, unspecified [...] of urine, unspecified documented in this encounter [facility] note* Diagnosis Pre-op testing Preoperative examination, unspecified [...] tract symptoms (LUTS) documented in this encounter [facility] note* Diagnosis Pre-op testing Preoperative examination, unspecified [...] back pain Lumbago documented in this encounter [facility] note* Diagnosis Pre-op testing Preoperative examination, unspecified [...] healing, subsequent encounter [facility] Diagnosis Pre-op testing Preoperative examination, unspecified [...] urine Overflow incontinence [facility] Diagnosis Pre-op testing Preoperative examination, unspecified [...] acute postoperative pain [facility] Diagnosis Pre-op testing Preoperative examination, unspecified [...] Unspecified essential hypertension [facility] Diagnosis Pre-op testing Preoperative examination, unspecified [...] urine Overflow incontinence [facility] Diagnosis Pre-op testing Preoperative examination, unspecified [...] Sleep disturbance, unspecified [facility] Diagnosis Pain in joint, multiple sites [...] hazards to health [facility] Diagnosis Pre-op testing Preoperative examination, unspecified [...] of urine, unspecified [facility] Diagnosis Pre-op testing Preoperative examination, unspecified [...] Unspecified essential hypertension [facility] Diagnosis Hip pain Pain in joint, [...] hazards to health [facility] Diagnosis DDD (degenerative disc disease), lumbar [...] hazards to health [facility] Diagnosis Pre-op testing Preoperative examination, unspecified [...] of urine, unspecified documented in this encounter [facility]* Visit Details Visit Type -SN SOC Discipline -Halfway Problems Problem Description Start Date Status Goals [...] indicated to help with indigestion. Taking an pogi-btt-elunjzv probiotic or eating yogurt with live and [...] with follow-up appointment(s). Recommendations: referral made for WRAPPER DIPPER to assist with transportation and patient/caregiver to [...] Order: Cleanse with soap and water, leave FURNITURE INSTALLER Frequency: daily Wound care to be completed [...] of incontinence pads/briefs. documented in this encounter [facility]* Visit Details [...] home exercise program. documented in this encounter [facility]* Visit Details [...] cues for safety. [facility] Visit Details Visit Type -SN ROUTINE Discipline -Halfway Problems Problem Description Start Date Status Goals [...] in this visit SN Learning Assessment Disciplines: 07/28/2024 Active 1 goal linked to [...] bony prominences, Routine skin care and Notifying [facility] clinician of changes to skin integrity Evaluation [...] indicated to help with indigestion. Taking an [id number]-vvs-edbodmr probiotic or eating yogurt with live and [...] Order: Cleanse with soap and water, leave FURNITURE INSTALLER Frequency: daily Wound care to be completed [...] of incontinence pads/briefs. [facility] Visit Details Visit Type -DIESEL PILE HAMMER OPERATOR ROUTINE Discipline -Physical Therapy Problems Problem Description [...] home exercise program. [facility] Visit Details Visit Type -WRAPPER DIPPER EVAL Discipline -Mechanic Welder Problems Problem Description Start Date Status Goals Interve ntions WRAPPER DIPPER Referral Disciplines: Skilled Services 07/28/2024 Resolved on 08/01/2024 1 goal linked to scheduled/documen josseline intervention 1 goal intervention scheduled/document ed in this visit WRAPPER DIPPER Co Founder And Director Care Needs Disciplines: [facility] 08/01/2024 Resolved on 08/01/2024 1 goal linked to scheduled/documen josseline intervention 1 goal intervention scheduled/document ed in this visit WRAPPER DIPPER General Evaluation and Treatment Disciplines: [facility] 08/01/2024 Resolved on 08/01/2024 1 goal linked to scheduled/documen josseline intervention 1 goal intervention scheduled/document ed in this visit WRAPPER DIPPER Social/Emotional Support Disciplines: [facility] 08/01/2024 Resolved on 08/01/2024 1 goal linked to scheduled/documen josseline intervention 1 goal intervention scheduled/document ed in this visit Goals Goal Associated Problem Outcome Goal Met? Visit Notes Patient will be referred to additional discipline as needed WRAPPER DIPPER Referral Completed Yes Patients Co Founder And Director Care Needs Will Be Met Description: Patients group home care needs will be met by information provided and referrals made. WRAPPER DIPPER Co Founder And Director Care Needs Completed Yes Complete General Evaluation and Treatment Description: patient will demonstrate compliance with and participation in the plan of treatment. WRAPPER DIPPER General Evaluation and Treatment Completed Yes Provide Social/Emotional Support Description: patient will have adequate social emotional support as evidence by consistent contact with family and friends. WRAPPER DIPPER Social/Emotional Support Completed Yes Interventions Intervention Associated Problem/Goal Status Variance Visit Notes WRAPPER DIPPER evaluation and treatment Description: WRAPPER DIPPER Referral eval and treat for Community Resources and Request for application for Financial Assistance. Problem:WRAPPER DIPPER Referral Goal:Patient will be referred to additional discipline as needed Completed termite control service representative care planning Problem:WRAPPER DIPPER Residential Care Needs Goal:Patients Co Founder And Director Care Needs Will Be Met Completed Patients superintendent terminal care needs will be met by information provided and INSTRUCTIONAL SYSTEMS DESIGNER made referral to [facility] due to safety concerns and possible exploitation. WRAPPER DIPPER Assessment Problem:WRAPPER DIPPER General Evaluation and Treatment Goal:Complete General Evaluation and Treatment Completed patient vague when answering questions and regarding him managing in alone in his apt. Adequate social/emotional support Problem:WRAPPER DIPPER Social/Emotional Support Goal:Provide Social/Emotional Support Completed patient stating he likes to be alone and has limited help with his care. INSTRUCTIONAL SYSTEMS DESIGNER made referral to [facility] due to safety concerns and possible exploitation. [facility] Visit Details Visit Type -DIESEL PILE HAMMER OPERATOR ROUTINE Discipline -Physical Therapy Problems Problem Description [...] indicated to help with indigestion. Taking an qqed-cqx-rykwkhd probiotic or eating yogurt with live and [...] and activity guidelines. documented in this encounter [facility] note* Visit Details Visit Type -SN ROUTINE Discipline -Halfway Problems Problem Description Start Date Status Goals [...] in this visit SN Learning Assessment Disciplines: 07/28/2024 Active 1 goal linked to [...] Order: Cleanse with soap and water, leave FURNITURE INSTALLER Frequency: daily Wound care to be completed [...] of securement device. documented in this encounter [facility] note* Visit Details Visit Type -RAYON TESTER ROUTINE Discipline -Home Health Aide Problems Problem Description Start Date Status Goals Interve ntions Home Health Aide Care Plan Disciplines: All Services, RAYON TESTER 07/28/2024 Active 1 goal linked to scheduled/documente d intervention 3 goal interventions scheduled/documented in this visit Goals Goal Associated Problem Outcome Goal Met? Visit Notes Patient will maintain adequate hygiene and demonstrate safe ambulation,transfers, positioning. Patient status will be reported to net development manager. Patient will be provided with assistance for IADLs. Home Health Aide Care Plan No Interventions Intervention Associated Problem/Goal Status Variance Visit Notes Assist with transfer Description: Assist with transfer pivot. Problem:Home Health Aide Care Plan Goal:Patient will maintain adequate hygiene and demonstrate safe ambulation,transfers, positioning. Patient status will be reported to net development manager. Patient will be provided with assistance for IADLs. Completed Completed Assist with dressing/undressing Problem:Home Health Aide Care Plan Goal:Patient will maintain adequate hygiene and demonstrate safe ambulation,transfers, positioning. Patient status will be reported to net development manager. Patient will be provided with assistance for IADLs. Completed Completed Bathe patient Description: Bathe patient sponge bath on commode. Problem:Home Health Aide Care Plan Goal:Patient will maintain adequate hygiene and demonstrate safe ambulation,transfers, positioning. Patient status will be reported to net development manager. Patient will be provided with assistance for IADLs. Completed Completed documented in this encounter [facility] note* Visit Details Visit Type -DIESEL PILE HAMMER OPERATOR ROUTINE Discipline -Physical Therapy Problems Problem Description [...] indicated to help with indigestion. Taking an jjlu-jfv-kcnjrxy probiotic or eating yogurt with live and [...] and activity guidelines. [facility] Visit [...] bony prominences, Routine skin care and Notifying [facility] clinician of changes to skin integrity Evaluation [...] use and safety and falls prevention and legal examiner use to facilite improved performance of lower body dressing with supervision or setup assistance and few verbal cues for safety/use of DME and threading cath bag through underware and shorts leg. Pt. demo fair/fair- stand balance. documented in this encounter [facility] Plan [facility] note* Visit Details Visit Type -DIESEL PILE HAMMER OPERATOR ROUTINE Discipline -Physical Therapy Problems Problem Description [...] home exercise program. [facility] Visit Details Visit Type -RAYON TESTER ROUTINE Discipline -Home Health Aide Problems Problem Description Start Date Status Goals Interve ntions Home Health Aide Care Plan Disciplines: All Services, RAYON TESTER 07/28/2024 Active 1 goal linked to scheduled/documente d intervention 3 goal interventions scheduled/documented in this visit Goals Goal Associated Problem Outcome Goal Met? Visit Notes Patient will maintain adequate hygiene and demonstrate safe ambulation,transfers, positioning. Patient status will be reported to net development manager. Patient will be provided with assistance for IADLs. Home Health Aide Care Plan No Interventions Intervention Associated Problem/Goal Status Variance Visit Notes Assist with transfer Description: Assist with transfer pivot. Problem:Home Health Aide Care Plan Goal:Patient will maintain adequate hygiene and demonstrate safe ambulation,transfers, positioning. Patient status will be reported to net development manager. Patient will be provided with assistance for IADLs. Completed Completed Assist with dressing/undressing Problem:Home Health Aide Care Plan Goal:Patient will maintain adequate hygiene and demonstrate safe ambulation,transfers, positioning. Patient status will be reported to net development manager. Patient will be provided with assistance for IADLs. Completed Completed Bathe patient Description: Bathe patient sponge bath on commode. Problem:Home Health Aide Care Plan Goal:Patient will maintain adequate hygiene and demonstrate safe ambulation,transfers, positioning. Patient status will be reported to net development manager. Patient will be provided with assistance for IADLs. Completed Completed [facility] Visit Details Visit Type -SN ROUTINE Discipline -Halfway Problems Problem Description Start Date Status Goals [...] schedule, proper storage of medications and med assistant media planner set up. Risk of Sepsis Description: Patient [...] actions to take. documented in this encounter [place] Plan of care note* Visit Details Visit Type -SN ROUTINE Discipline -Halfway Problems Problem Description Start Date Status Goals [...] scheduled/documen josseline intervention SN Integumentary/Woun ds Disciplines: 07/28/2024 Active 1 goal linked to scheduled/documen josseline intervention SN Learning Assessment Disciplines: 07/28/2024 Active 1 goal linked to scheduled/documen josseline intervention 1 goal intervention scheduled/documen josseline in this visit SN Genitourinary disease process Disciplines: 07/28/2024 Resolved on 08/11/2024 1 goal linked to scheduled/documen josseline intervention 1 goal intervention scheduled/documen josseline in this visit SN Gastrointestinal Disciplines: 07/28/2024 [...] on adhering to medication schedule and med assistant media planner set up. Risk of Sepsis Description: Patient [...] actions to take. documented in this encounter [place] Plan of care note* Visit Details [...] and activity guidelines. documented in this encounter [place] Plan of care note* Visit Details [...] independently, Pt. receptive. documented in this encounter [place] Plan of care note* Visit Details Visit Type -SN ROUTINE Discipline -Halfway Problems Problem Description Start Date Status Goals [...] on adhering to medication schedule and med assistant media planner set up. Risk of Sepsis Description: Patient [...] and pain management. [facility] Visit Details Visit Type -RAYON TESTER DISC DC W Vi sit Discipline -Home Health Aide Problems Problem Description Start Date Status Goals Interve ntions Home Health Aide Care Plan Disciplines: All Services, RAYON TESTER 07/28/2024 Active 1 goal linked to scheduled/documente d intervention 3 goal interventions scheduled/documented in this visit Goals Goal Associated Problem Outcome Goal Met? Visit Notes Patient will maintain adequate hygiene and demonstrate safe ambulation,transfers, positioning. Patient status will be reported to net development manager. Patient will be provided with assistance for IADLs. Home Health Aide Care Plan No Interventions Intervention Associated Problem/Goal Status Variance Visit Notes Assist with transfer Description: Assist with transfer pivot. Problem:Home Health Aide Care Plan Goal:Patient will maintain adequate hygiene and demonstrate safe ambulation,transfers, positioning. Patient status will be reported to net development manager. Patient will be provided with assistance for IADLs. Completed Completed Assist with dressing/undressing Problem:Home Health Aide Care Plan Goal:Patient will maintain adequate hygiene and demonstrate safe ambulation,transfers, positioning. Patient status will be reported to net development manager. Patient will be provided with assistance for IADLs. Completed Completed Bathe patient Description: [place]athe patient sponge bath on commode. Problem:Home Health Aide Care Plan Goal:Patient will maintain adequate hygiene and demonstrate safe ambulation,transfers, positioning. Patient status will be reported to net development manager. Patient will be provided with assistance for IADLs. Completed Completed [facility] Visit Details Visit Type -SN ROUTINE Discipline -Halfway Problems Problem Description Start Date Status Goals [...] instructed on adhering to medication schedule, med assistant media planner set up and med diary and reminders. [...] and pain management. [facility] Visit [...] to scheduled/docume nted intervention 1 goal intervention scheduled/documejeremiah manjarrez in this visit PT Cardiovascular Disease Disciplines: [...] home exercise program. [facility] Visit [...] raised toilet seat. documented in this encounter [place] Plan of care note* Visit Details Visit Type -SN ROUTINE Discipline -Halfway Problems Problem Description Start Date Status Goals [...] management and nutrition. documented in this encounter [place] Plan of care note* Visit Details Visit Type -SN ROUTINE Discipline -Halfway Problems Problem Description Start Date Status Goals [...] and pain management. documented in this encounter [facility] [place] for referral (narrative)* Outpatient Procedure (Routine) - Pending Review Specialty Diagnoses / Procedures Referred By Contac alejo Ref[facility] Diagnoses Pre-op testing Procedures ECG COMPLETE ECG ROUTINE ECG W/LEAST 12 LDS W/I&R Sonia Watts APRN.TRANSPORTATION DISPATCH MANAGER [address] [place] [address] [facility] [place] [address] [place] [address] Referral ID Status Reason Start Date Expiration Date Visits Requested Visits Authorized [id number] Pending Review Auto-Generat ed Referral 02/23/2022 02/23/2023 1 1 [facility] [place] for referral (narrative)* Diagnostic Procedure Only (Routine) - Authorized Specialty Diagnoses / Procedures Referred By Contac t Referred To Contact XR IMAGING Diagnoses Neck pain Numbness and tingling of both upper extremities Procedures XR CERV OTHER 4V AP/LAT/OBL RADEX SPINE CERVICAL 4 OR 5 VIEWS Gracy Sears APRN.CNP [address] [place] [address] Xr Imaging Referral ID Status Reason Start Date Expiration Date Visits Requested Visits Authorized [id number] Authorized Auto-Generat ed Referral 03/19/2022 04/18/2023 1 1 [facility] [place] for referral (narrative)* Diagnostic Procedure Only (Routine) - Pending Review Specialty Diagnoses / Procedures Referred By Contac t Referred To Contact XR IMAGING Diagnoses Pain in right hip Procedures XR HIP GENERAL 3V PELV/AP/LAT RIGHT RADEX HIP UNILATERAL WITH PELVIS 2-3 VIEWS Tiffany Garsia PA-C [address] [place] [address] Xr Imaging Referral ID Status Reason Start Date Expiration Date Visits Requested Visits Authorized [id number] Pending Review Auto-Generat ed Referral 03/26/2022 04/25/2023 1 1 [facility] [place] for referral (narrative)* Diagnostic Procedure Only (Routine) - Closed Specialty Diagnoses / Procedures Referred By Contac t Referred To Contact XR IMAGING Diagnoses Neck pain Numbness and tingling of both upper extremities Procedures XR CERV OTHER 4V AP/LAT/OBL RADEX SPINE CERVICAL 4 OR 5 VIEWS Gracy Sears APRN.CNP [address] [place] [address] Xr Imaging Referral ID Status Reason Start Date Expiration Date V isits Requested Visits Authorized [id number] Closed Auto-Generate d Referral 03/19/2022 04/18/2023 1 1 [facility] [place] for referral (narrative)* Diagnostic Procedure Only (Urgent) - Closed Specialty Diagnoses / Procedures Referred By Contac t Referred To Contact MR IMAGING Diagnoses Chronic vertigo Ataxia Fall, subsequent encounter Procedures MRI BRAIN WO/W IVCON MRI BRAIN BRAIN STEM W/O W/CONTRAST MATERIAL Marbella Zaidi PA-C [address] [place] [id number] Mr Imaging Referral ID Status Reason Start Date Expiration Date Visits Re quested Visits Authorized [id number] Closed 07/01/2022 07/31/2022 1 1 [facility] [place] for referral (narrative)* Diagnostic Procedure Only (Routine) - Closed Specialty Diagnoses / Procedures Referred By Contac t Referred To Contact XR IMAGING Diagnoses Closed fracture of multiple ribs of left side with routine healing, subsequent encounter Procedures XR RIBS/CHEST 3V AP RIB/OBLS/CXR LEFT RADEX RIBS UNI W/POSTEROANT CH MINIMUM 3 VIEWS Abena Beckford APRN.CNP [address] [place] [id number] Xr Imaging Referral ID Status Reason Start Date Expiration Date V isits Requested Visits Authorized [id number] Closed Auto-Generate d Referral 11/02/2022 12/02/2023 1 1 [facility] [place] for referral (narrative)* Diagnostic Procedure Only (Routine) - Pending Review Specialty Diagnoses / Procedures Referred By Contac t Referred To Contact XR IMAGING Diagnoses 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, subsequent encounter Procedures XR FEMUR GENERAL 2V AP/LAT RIGHT RADIOLOGIC EXAMINATION FEMUR MINIMUM 2 VIEWS Gudelia Samuel MD [address] [place] [address] Xr Imaging Referral ID Status Reason Start Date Expiration Date Visits Requested Visits Authorized [id number] Pending Review Auto-Generat ed Referral 01/26/2023 02/25/2024 1 1 * Diagnostic Procedure Only (Routine) - Pending Review Specialty Diagnoses / Procedures Referred By Contac t Referred To Contact XR IMAGING Diagnoses 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, subsequent encounter Procedures XR PELVIS 1V AP RADIOLOGIC EXAMINATION PELVIS 1/2 VIEWS Gudelia Samuel MD [address] [place] [address] Xr Imaging Referral ID Status Reason Start Date Expiration Date Visits Requested Visits Authorized [id number] Pending Review Auto-Generat ed Referral 01/26/2023 02/25/2024 1 1 [facility] [place] for referral (narrative)* Diagnostic Procedure Only (Routine) - Pending Review Specialty Diagnoses / Procedures Referred By Contac t Referred To Contact XR IMAGING Diagnoses 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, subsequent encounter Procedures XR FEMUR GENERAL 2V AP/LAT RIGHT RADIOLOGIC EXAMINATION FEMUR MINIMUM 2 VIEWS Gudelia Samuel MD [address] [place] [address] Xr Imaging Referral ID Status Reason Start Date Expiration Date Visits Requested Visits Authorized [id number] Pending Review Auto-Generat ed Referral 02/23/2023 03/24/2024 1 1 * Diagnostic Procedure Only (Routine) - Pending Review Specialty Diagnoses / Procedures Referred By Sarahac alejo Referred To Contact XR IMAGING Diagnoses 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, subsequent encounter Procedures XR PELVIS 1V AP RADIOLOGIC EXAMINATION PELVIS 1/2 VIEWS Gudelia Samuel MD [address] [place] [address] Xr Imaging Referral ID Status Reason Start Date Expiration Date Visits Requested Visits Authorized [id number] Pending Review Auto-Generat ed Referral 02/23/2023 03/24/2024 1 1 [facility] [place] for referral (narrative)* Diagnostic Procedure Only (Routine) - Pending Review Specialty Diagnoses / Procedures Referred By Contac t Referred To Contact XR IMAGING Diagnoses Dislocation of hip joint prosthesis, subsequent encounter 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, subsequent encounter Procedures XR FEMUR GENERAL 2V AP/LAT RIGHT RADIOLOGIC EXAMINATION FEMUR MINIMUM 2 VIEWS Gudelia Samuel MD [address] [place] [address] Xr Imaging Referral ID Status Reason Start Date Expiration Date Visits Requested Visits Authorized [id number] Pending Review Auto-Generat ed Referral 03/30/2023 04/28/2024 [...] Samuel MD [address] [place] [address] Xr Imaging Referral ID Status Reason Start Date Expiration Date Visits Requested Visits Authorized [id number] Pending Review Auto-Generat ed Referral 03/30/2023 04/28/2024 1 1 [facility] [place] for referral (narrative)* Diagnostic Procedure Only (Routine) - Pending Review Specialty Diagnoses / Procedures Referred By Sarahac t Referred To Contact XR IMAGING Diagnoses Dislocation of hip joint prosthesis, subsequent encounter 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, subsequent encounter Procedures XR FEMUR GENERAL 2V AP/LAT RIGHT RADIOLOGIC EXAMINATION FEMUR MINIMUM 2 VIEWS Gudelia Samuel MD [address] [place] [address] Xr Imaging Referral ID Status Reason Start Date Expiration Date Visits Requested Visits Authorized [id number] Pending Review Auto-Generat ed Referral 05/11/2023 06/09/2024 [...] Samuel MD [address] [place] [address] Xr Imaging Referral ID Status Reason Start Date Expiration Date Visits Requested Visits Authorized [id number] Pending Review Auto-Generat ed Referral 05/11/2023 06/09/2024 1 1 T [facility] [place] for referral (narrative)* Diagnostic Procedure Only (Routine) - Pending Review Specialty Diagnoses / Procedures Referred By Contac t Referred To Contact XR IMAGING Diagnoses Dislocation of hip joint prosthesis, subsequent encounter 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, subsequent encounter Procedures XR FEMUR GENERAL 2V AP/LAT RIGHT RADIOLOGIC EXAMINATION FEMUR MINIMUM 2 VIEWS Gudelia Samuel MD [address] [address] [place] [address] Referral ID Status Reason Start Date Expiration Date Visits Requested Visits Authorized [id number] Pending Review Auto-Generat ed Referral 07/06/2023 08/04/2024 1 1 [facility] [place] for referral (narrative)* Diagnostic Procedure Only (Routine) - Authorized Specialty Diagnoses / Procedures Referred By Contac t Referred To Contact US IMAGING Diagnoses Acute cystitis without hematuria Procedures US KIDNEY/BLADDER US RETROPERITONEAL REAL TIME W/IMAGE COMPLETE Abena Beckford APRN.TRANSPORTATION DISPATCH MANAGER [address] [place] [address] [place] [address] Referral ID Status Reason Start Date Expiration Date Visits Requested Visits Authorized [id number] Authorized Auto-Generat ed Referral 12/29/2023 01/27/2025 1 1 [facility] for referral (narrative)* Diagnostic Procedure Only (Routine) - Closed Specialty Diagnoses / Procedures Referred By Contac t Referred To Contact US IMAGING Diagnoses Acute cystitis without hematuria Procedures US KIDNEY/BLADDER US RETROPERITONEAL REAL TIME W/IMAGE COMPLETE Abena Beckford APRN.TRANSPORTATION DISPATCH MANAGER [address] [place] [address] [place] [address] Referral ID Status Reason Start Date Expiration Date V isits Requested Visits Authorized [id number] Closed Auto-Generate d Referral 12/29/2023 01/27/2025 1 1 [facility] [place] for referral (narrative)* Outpatient Procedure (Routine) - Pending Review Specialty Diagnoses / Procedures Referred By Contac t Referred To Contact [facility] Diagnoses 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 Overflow incontinence of urine Urinary retention Procedures CYSTO/TRUS ONLY CYSTOURETHROSCOPY US, TRANSRECTAL Bharathi Wiggins APRN.CNP, RENE [address] [place] [address] [facility] [address] [place] [address] Referral ID Status Reason Start Date Expiration Date Visits Requested Visits Authorized [id number] Pending Review Auto-Generat ed Referral 01/31/2024 01/30/2025 1 1 [facility] [place] for referral (narrative)* Outpatient Procedure (Routine) - Authorized Specialty Diagnoses / Procedures Referred By Contac t Referred To Contact [facility] Diagnoses Dizziness Procedures US CAROTID ARTERIES [facility] DUPLEX SCAN EXTRACRANIAL ART COMPL BI STUDY Marbella Zaidi PA-C [address] [place] [address] [facility] [address] [place] [address] Referral ID Status Reason Start Date Expiration Date Visits Requested Visits Authorized [id number] Authorized Auto-Generat ed Referral 04/10/2024 04/10/2025 1 1 [facility] [place] for referral (narrative)* Diagnostic Procedure Only (Routine) - Pending Review Specialty Diagnoses / Procedures Referred By Contac t Referred To Contact US IMAGING Diagnoses Hydronephrosis, unspecified hydronephrosis type BPH with obstruction/lower urinary tract symptoms Urine retention Procedures US KIDNEY/BLADDER US RETROPERITONEAL REAL TIME W/IMAGE COMPLETE Saskia Sears APRN.CNP [address] [place] [address] [place] [address] Referral ID Status Reason Start Date Expiration Date Visits Requested Visits Authorized [id number] Pending Review Auto-Generat ed Referral 04/19/2024 05/19/2025 1 1 [facility] [place] for referral (narrative)* Diagnostic Procedure Only (Routine) - Closed Specialty Diagnoses / Procedures Referred By Contac t Referred To Contact XR IMAGING Diagnoses Closed fracture of multiple ribs of left side with routine healing, subsequent encounter Procedures XR RIBS/CHEST 3V AP RIB/OBLS/CXR LEFT RADEX RIBS UNI W/POSTEROANT CH MINIMUM 3 VIEWS Abena Beckford APRN.TRANSPORTATION DISPATCH MANAGER [address] [place] [address] [place] [address] Referral ID Status Reason Start Date Expiration Date V isits Requested Visits Authorized [id number] Closed Auto-Generate d Referral 11/02/2022 12/02/2023 1 1 [facility] [place] for referral (narrative)* Diagnostic Procedure Only (Routine) - Closed Specialty Diagnoses / Procedures Referred By Contac t Referred To Contact XR IMAGING Diagnoses Pain in joint, multiple sites Procedures XR HAND GENERAL 3V PA/LAT/OBL BILAT X-RAY HAND MINIMUM 3 [place] [address] [place] [address] [place] [address] Referral ID Status Reason Start Date Expiration Date V isits Requested Visits Authorized [id number] Closed Auto-Generate d Referral 09/30/2021 10/30/2022 1 1 [facility] [place] for referral (narrative)* Diagnostic Procedure Only (Routine) - Closed Specialty Diagnoses / Procedures Referred By Contac t Referred To Contact XR IMAGING Diagnoses Chronic pain of both knees Procedures XR KNEE GENERAL 4V AP BOTH/PA BOTH/LAT/MERC BILAT KNEE AP-WGT/LAT/MERCHANT Navin Singh Jr., MD [address] [facility] [address] [place] [address] [place] [address] Referral ID Status Reason Start Date Expiration Date V isits Requested Visits Authorized [id number] Closed Auto-Generate d Referral 07/04/2021 08/03/2022 1 1 * Diagnostic Procedure Only (Routine) - Closed Specialty Diagnoses / Procedures Referred By Contac t Referred To Contact XR IMAGING Diagnoses Hip pain Procedures XR HIP BILAT 5V PEL/AP/LAT EACH HIP RADEX HIPS BILATERAL WITH PELVIS MINIMUM 5 VIEWS Navin Singh Jr., MD [address] [facility] [address] [place] [address] [place] [address] Referral ID Status Reason Start Date Expiration Date V isits Requested Visits Authorized [id number] Closed Auto-Generate d Referral 07/04/2021 08/03/2022 1 1 [facility] [place] for visit Narrative* Diagnostic Procedure Only (Routine) - Closed Specialty Diagnoses / Procedures Referred By Contac t Referred To Contact XR IMAGING Diagnoses Neck pain Numbness and tingling of both upper extremities Procedures XR CERV OTHER 4V AP/LAT/OBL RADEX SPINE CERVICAL 4 OR 5 VIEWS Gracy Sears, KITCHEN LEAD.TRANSPORTATION DISPATCH MANAGER [address] [place] [id number] Xr Imaging Referral ID Status Reason Start Date Expiration Date V isits Requested Visits Authorized [id number] Closed Auto-Generate d Referral 03/19/2022 04/18/2023 1 1 [facility] [place] for visit Narrative* Diagnostic Procedure Only (Urgent) - Closed Specialty Diagnoses / Procedures Referred By Contac t Referred To Contact MR IMAGING Diagnoses Chronic vertigo Ataxia Fall, subsequent encounter Procedures MRI BRAIN WO/W IVCON MRI BRAIN BRAIN STEM W/O W/CONTRAST MATERIAL Marbella Zaidi PA-C [address] [place] [address] Mr Imaging Referral ID Status Reason Start Date Expiration Date Visits Re quested Visits Authorized [id number] Closed 07/01/2022 07/31/2022 1 1 [facility] [place] for visit Narrative* Diagnostic Procedure Only (Routine) - Closed Specialty Diagnoses / Procedures Referred By Contac t Referred To Contact XR IMAGING Diagnoses Closed fracture of multiple ribs of left side with routine healing, subsequent encounter Procedures XR RIBS/CHEST 3V AP RIB/OBLS/CXR LEFT RADEX RIBS UNI W/POSTEROANT CH MINIMUM 3 VIEWS Abena Beckford, HIRAM.TRANSPORTATION DISPATCH MANAGER [address] [place] [address] [place] [address] Referral ID Status Reason Start Date Expiration Date V isits Requested Visits Authorized [id number] Closed Auto-Generate d Referral 11/02/2022 12/02/2023 1 1 [facility] [place] for visit Narrative* Diagnostic Procedure Only (Routine) - Closed Specialty Diagnoses / Procedures Referred By Contac t Referred To Contact XR IMAGING Diagnoses Chronic pain of both knees Procedures XR KNEE GENERAL 4V AP BOTH/PA BOTH/LAT/MERC BILAT KNEE AP-WGT/LAT/REILLYHANT Navin Singh Jr., MD [address] [facility] [address] [place] [address] [place] [address] Referral ID Status Reason Start Date Expiration Date V isits Requested Visits Authorized [id number] Closed Auto-Generate d Referral 07/04/2021 08/03/2022 1 1 [facility] Summary Purpose Family History No Family History Records FoundNo Family History Records FoundNo Family History Records FoundNo Family History Records FoundNo Family History Records FoundNo Family History Records FoundNo Family History Records Found Advance Directives Documents on File Type Date Recorded Patient Occupational Health Technician Expl anation Advance Directive(s) 12/23/2021 9:11 AM Advance Directive(s) 12/12/2021 10:14 AM Advance Directive(s) 12/09/2021 8:33 AM Advance Directive(s) 11/19/2021 5:14 PM Advance Directive(s) 09/04/2021 7:38 AM Advance Directive(s) 08/21/2021 9:58 AM Advance Directive(s) 04/23/2021 11:56 AM Documents on File Type Date Recorded Patient Occupational Health Technician Expl anation Advance Directive(s) 12/23/2021 9:11 AM Advance Directive(s) 12/12/2021 10:14 AM Advance Directive(s) 12/09/2021 8:33 AM Advance Directive(s) 11/19/2021 5:14 PM Advance Directive(s) 09/04/2021 7:38 AM Advance Directive(s) 08/21/2021 9:58 AM Advance Directive(s) 04/23/2021 11:56 AM Documents on File Type Date Recorded Patient Occupational Health Technician Expl anation Advance Directive(s) 03/13/2022 12:11 PM Advance Directive(s) 12/23/2021 9:11 AM Advance Directive(s) 12/12/2021 10:14 AM Advance Directive(s) 12/09/2021 8:33 AM Advance Directive(s) 11/19/2021 5:14 PM Advance Directive(s) 09/04/2021 7:38 AM Advance Directive(s) 08/21/2021 9:58 AM Advance Directive(s) 04/23/2021 11:56 AM Documents on File Type Date Recorded Patient Occupational Health Technician Expl anation Advance Directive(s) 03/20/2022 6:04 AM Advance Directive(s) 03/13/2022 12:11 PM Advance Directive(s) 12/23/2021 9:11 AM Advance Directive(s) 12/12/2021 10:14 AM Advance Directive(s) 12/09/2021 8:33 AM Advance Directive(s) 11/19/2021 5:14 PM Advance Directive(s) 09/04/2021 7:38 AM Advance Directive(s) 08/21/2021 9:58 AM Advance Directive(s) 04/23/2021 11:56 AM Documents on File Type Date Recorded Patient Occupational Health Technician Expl anation Advance Directive(s) 03/20/2022 6:04 AM Advance Directive(s) 03/13/2022 12:11 PM Advance Directive(s) 12/23/2021 9:11 AM Advance Directive(s) 12/12/2021 10:14 AM Advance Directive(s) 12/09/2021 8:33 AM Advance Directive(s) 11/19/2021 5:14 PM Advance Directive(s) 09/04/2021 7:38 AM Advance Directive(s) 08/21/2021 9:58 AM Advance Directive(s) 04/23/2021 11:56 AM Documents on File Type Date Recorded Patient Occupational Health Technician Expl anation Advance Directive(s) 03/31/2022 10:28 AM [...] Documents on File Type Date Recorded Patient Occupational Health Technician Expl anation Advance Directive(s) 03/31/2022 10:28 AM [...] Documents on File Type Date Recorded Patient Occupational Health Technician Expl anation Advance Directive(s) 03/31/2022 10:28 AM Documents on File Type Date Recorded Patient Occupational Health Technician Expl anation Advance Directive(s) 03/31/2022 10:28 AM [...] EVALUATION HIGH COMPLEX 45 MINS Gracy Sears, HIRAM.TRANSPORTATION DISPATCH MANAGER [address] [place] [address] [facility] [place] [address] [place] [address] Referral ID Status Reason Start Date Expiration Date Visits Requested Visits Authorized [id number] Pending Review Auto-Generat ed Referral 06/18/2022 06/18/2023 1 1 Specialty Diagnoses / Procedures Referred By Contac t Referred To Contact MR IMAGING Diagnoses Spinal stenosis of cervical region Procedures MRI CERVICAL SPINE WO IVCON MRI SPINAL CANAL [place]ERVICAL [place] [address] [place] [address] Mr Imaging Referral ID Status Reason Start Date Expiration Date Visits Requested Visits Authorized [id number] Pending Review Auto-Generat ed Referral 08/10/2022 09/09/2023 1 1 Referral ID Status Reason Start Date Expiration Date V isits Requested Visits Authorized [id number] Closed Auto-Generate d Referral 08/28/2022 09/27/2022 1 1 Specialty Diagnoses / Procedures Referred By Contac t Referred To Contact Endocrinology Diagnoses 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 Low serum follicle stimulating hormone (FSH) Procedures CONSULT TO ENDOCRINOLOGY OFFICE/OUTPATIENT [facility] 60-74 MINUTES Marbella Zaidi PA-C [address] [place] [address] Referral ID Status Reason Start Date Expiration Date Visits Requested Visits Authorized [id number] Pending Review PCP Requested Referral 09/27/2022 09/27/2023 1 1 Specialty Diagnoses / Procedures Referred By Contac t Referred To Contact MR IMAGING Diagnoses Nonintractable headache, unspecified chronicity pattern, unspecified headache type Procedures MRI PITUITARY WO/W IVCON MRI BRAIN BRAIN STEM W/O W/CONTRAST MATERIAL Andra Hough MD [address] [place] [address] Mr Imaging Referral ID Status Reason Start Date Expiration Date Visits Requested Visits Authorized [id number] Pending Review Auto-Generat ed Referral 12/05/2023 1 1 Specialty Diagnoses / Procedures Referred By Contac t Referred To Contact Diagnoses 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, subsequent encounter Dislocation of hip joint prosthesis, subsequent encounter Procedures CONSULT TO ORTHOTIC/PROSTHETIC Gudelia Samuel MD [address] [address] Referral ID Status Reason Start Date Expiration Date V isits Requested Visits Authorized [id number] Ref Not Required 03/17/2023 05/16/2023 1 1 Specialty Diagnoses / Procedures Referred By Contac t Referred To Contact XR IMAGING Diagnoses 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, subsequent encounter Procedures XR FEMUR GENERAL 2V AP/LAT RIGHT RADIOLOGIC EXAMINATION FEMUR MINIMUM 2 VIEWS Gudelia Samuel MD [address] [address] Xr Imaging Referral ID Status Reason Start Date Expiration Date Visits Requested Visits Authorized [id number] Pending Review Auto-Generat ed Referral 03/16/2023 04/14/2024 1 1 Specialty Diagnoses / Procedures Referred By Contac t Referred To Contact XR IMAGING Diagnoses 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, subsequent encounter Procedures XR PELVIS 1V AP RADIOLOGIC EXAMINATION PELVIS 1/2 VIEWS Gudelia Samuel MD [address] [place] [address] Xr Imaging Referral ID Status Reason Start Date Expiration Date Visits Requested Visits Authorized [id number] Pending Review Auto-Generat ed Referral 03/16/2023 04/14/2024 1 1 Specialty Diagnoses / Procedures Referred By Contac t Referred To Contact Pain Management Diagnoses S/P total right hip arthroplasty Periprosthetic hip fracture, sequela Post laminectomy syndrome Pain syndrome, chronic Procedures CONSULT TO PAIN MGT OFFICE/OUTPATIENT [facility] 60-74 MINUTES Marbella Zaidi PA-C [address] [place] [address] Referral ID Status Reason Start Date Expiration Date Visits Requested Visits Authorized [id number] Pending Review PCP Requested Referral 06/28/2023 06/27/2024 1 1 Specialty Diagnoses / Procedures Referred By Contac t Referred To Contact CT IMAGING Diagnoses Right flank pain Microscopic hematuria Procedures CT FLANK WO IVCON CT ABD & PELVIS W/O CONTRAST Marbella Zaidi PA-C [address] [place] [address] Ct Imaging Referral ID Status Reason Start Date Expiration Date Visits Requested Visits Authorized [id number] Authorized Auto-Generat ed Referral 07/01/2023 07/30/2024 1 1 Specialty Diagnoses / Procedures Referred By Contac t Referred To Contact [facility] Diagnoses DDD (degenerative disc disease), lumbar Paresthesia of saddle area S/P laminectomy 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 Procedures CONSULT TO PHYSICAL THERAPY PHYSICAL THERAPY EVALUATION HIGH COMPLEX 45 MINS Marbella Zaidi PA-C [address] [place] [address] [facility] [place] [address] [place] [address] Referral ID Status Reason Start Date Expiration Date Visits Requested Visits Authorized [id number] Pending Review Auto-Generat ed Referral 08/16/2023 08/15/2024 1 1 Specialty Diagnoses / Procedures Referred By Contac t Referred To Contact CT IMAGING Diagnoses Right flank pain Microscopic hematuria Procedures CT FLANK WO IVCON CT ABD & PELVIS W/O CONTRAST Marbella Zaidi PA-C [address] [place] [address] [place] [id number] Referral ID Status Reason Start Date Expiration Date V isits Requested Visits Authorized [id number] Closed Auto-Generate d Referral 07/01/2023 07/30/2024 1 1 Specialty Diagnoses / Procedures Referred By Contac t Referred [facility] Contact [facility] Diagnoses Spinal stenosis of lumbar region with neurogenic claudication Myelopathy (HCC) Urinary incontinence, unspecified type Procedures MRI LUMBAR SPINE WO IVCON MRI SPINAL CANAL LUMBAR W/O CONTRAST MATERIAL Gudelia Samuel MD [address] [place] [address] [place] [address] Referral ID Status Reason Start Date Expiration Date Visits Requested Visits Authorized [id number] Waiting for Response Auto-Genera [email or web address] Referral Clearance Not Met - Admin/Chair man/Directo r Advise to Postpone/Re schedule or Not Proceed 3 11/18/2024 1 1 Specialty Diagnoses / Procedures Referred By Contac t Referred To Contact [facility] Diagnoses Spinal stenosis of cervical region Myelopathy (HCC) Urinary incontinence, unspecified type Procedures MRI CERVICAL SPINE WO IVCON MRI SPINAL CANAL CERVICAL W/O CONTRAST MATRL Gudelia Samuel MD [address] [place] [address] [place] [address] Referral ID Status Reason Start Date Expiration Date Visits Requested Visits Authorized [id number] Waiting for Response Auto-Genera [email or web address] Referral Clearance [...] MD [address] [place] [address] [place] [id number] Referral ID Status Reason Start Date Expiration Date Visits Requested Visits Authorized [id number] Pending Review Auto-Generat ed Referral 3 11/17/2024 1 1 Specialty Diagnoses / Procedures Referred By Rajat t Referred To Contact Urology Diagnoses Urinary retention Hydronephrosis, unspecified hydronephrosis type Procedures CONSULT TO UROLOGY OFFICE/OUTPATIENT [facility] 60 MINUTES Navin Ackerman MD [address] [place] [address] Referral ID Status Reason Start Date Expiration Date Visits Requested Visits Authorized [id number] Authorized PCP Requested Referral 12/31/2023 12/30/2024 1 1 Specialty Diagnoses / Procedures Referred By Contac t Referred To Contact Diagnoses Hypogonadism in male Marbella Zaidi PA-C [address] [place] [address] Referral ID Status Reason Start Date Expiration Date V isits Requested Visits Authorized [id number] Pending Review 1 1 Specialty Diagnoses / Procedures Referred By Contac t Referred To Contact Diagnoses Benign prostatic hyperplasia [...] joint Waldenstrom macroglobulinemia (HCC) Procedures CONSULT TO [facility] Marbella Zaidi PA-C [address] [place] [address] [address] [place] [address] Referral ID Status Reason Start Date Expiration Date V isits Requested Visits Authorized [id number] Denied PCP Requested Referral 02/08/2024 05/08/2024 1 [...] section and content) DATE CREATED AUTHOR 02/17/2019 [facility] ([place]) DATE CREATED AUTHOR AUTHOR'S ORGANIZ ATION 03/27/2022 [facility] DATE CREATED AUTHOR AUTHOR'S ORGANIZ ATION 11/20/2022 [facility] DATE CREATED AUTHOR AUTHOR'S ORGANIZ ATION 12/09/2022 [facility] DATE CREATED AUTHOR AUTHOR'S ORGANIZ ATION 01/01/2024 [facility] DATE CREATED AUTHOR AUTHOR'S ORGANIZ ATION 08/10/2024 [facility] DATE CREATED AUTHOR AUTHOR'S ORGANIZ ATION 09/09/2024 [facility] Source Comments (unrecognize d section and content) In the event this informatio n is protected by the Federal Confidentiality of Alcohol and Drug Abuse Patient Records regulations: The Federal rules restrict any use of the information to criminally investigate or prosecute any alcohol or drug abuse patient.[facility] the event this information is protected by the Federal Confidentiality of Alcohol and Drug Abuse Patient Records regulations: The Federal rules restrict any use of the information to criminally investigate or prosecute any alcohol or drug abuse patient.[facility] Hospital[facility] the event this information is protected by the Federal Confidentiality of Alcohol and Drug Abuse Patient Records regulations: The Federal rules restrict any use of the information to criminally investigate or prosecute any alcohol or drug abuse patient.[facility] HospitalIn the event this information is protected by the Federal Confidentiality of Alcohol and Drug Abuse Patient Records regulations: The Federal rules restrict any use of the information to criminally investigate or prosecute any alcohol or drug abuse patient.[facility] HospitalIn the event this information is protected by the Federal Confidentiality of Alcohol and Drug Abuse Patient Records regulations: The Federal rules restrict any use of the information to criminally investigate or prosecute any alcohol or drug abuse patient.[facility] HospitalIn the event this information is protected by the Federal Confidentiality of Alcohol and Drug Abuse Patient Records regulations: The Federal rules restrict any use of the information to criminally investigate or prosecute any alcohol or drug abuse patient.[facility] HospitalIn the event this information is protected by the Federal Confidentiality of Alcohol and Drug Abuse Patient Records regulations: The Federal rules restrict any use of the information to criminally investigate or prosecute any alcohol or drug abuse patient.[facility] HospitalIn the event this information is protected by the Federal Confidentiality of Alcohol and Drug Abuse Patient Records regulations: The Federal rules restrict any use of the information to criminally investigate or prosecute any alcohol or drug abuse patient.[facility] HospitalIn the event this information is protected by the Federal Confidentiality of Alcohol and Drug Abuse Patient Records regulations: The Federal rules restrict any use of the information to criminally investigate or prosecute any alcohol or drug abuse patient.[facility] HospitalIn the event this information is protected by the Federal Confidentiality of Alcohol and Drug Abuse Patient Records regulations: The Federal rules restrict any use of the information to criminally investigate or prosecute any alcohol or drug abuse patient.[facility] HospitalIn the event this information is protected by the Federal Confidentiality of Alcohol and Drug Abuse Patient Records regulations: The Federal rules restrict any use of the information to criminally investigate or prosecute any alcohol or drug abuse patient.[facility] HospitalIn the event this information is protected by the Federal Confidentiality of Alcohol and Drug Abuse Patient Records regulations: The Federal rules restrict any use of the information to criminally investigate or prosecute any alcohol or drug abuse patient.[facility] HospitalIn the event this information is protected by the Federal Confidentiality of Alcohol and Drug Abuse Patient Records regulations: The Federal rules restrict any use of the information to criminally investigate or prosecute any alcohol or drug abuse patient.[facility] HospitalIn the event this information is protected by the Federal Confidentiality of Alcohol and Drug Abuse Patient Records regulations: The Federal rules restrict any use of the information to criminally investigate or prosecute any alcohol or drug abuse patient.[facility] HospitalIn the event this information is protected by the Federal Confidentiality of Alcohol and Drug Abuse Patient Records regulations: The Federal rules restrict any use of the information to criminally investigate or prosecute any alcohol or drug abuse patient.[facility] HospitalIn the event this information is protected by the Federal Confidentiality of Alcohol and Drug Abuse Patient Records regulations: The Federal rules restrict any use of the information to criminally investigate or prosecute any alcohol or drug abuse patient.[facility] HospitalIn the event this information is protected by the Federal Confidentiality of Alcohol and Drug Abuse Patient Records regulations: The Federal rules restrict any use of the information to criminally investigate or prosecute any alcohol or drug abuse patient.[facility] HospitalIn the event this information is protected by the Federal Confidentiality of Alcohol and Drug Abuse Patient Records regulations: The Federal rules restrict any use of the information to criminally investigate or prosecute any alcohol or drug abuse patient.[facility] HospitalIn the event this information is protected by the Federal Confidentiality of Alcohol and Drug Abuse Patient Records regulations: The Federal rules restrict any use of the information to criminally investigate or prosecute any alcohol or drug abuse patient.[facility] HospitalIn the event this information is protected by the Federal Confidentiality of Alcohol and Drug Abuse Patient Records regulations: The Federal rules restrict any use of the information to criminally investigate or prosecute any alcohol or drug abuse patient.[facility] HospitalIn the event this information is protected by the Federal Confidentiality of Alcohol and Drug Abuse Patient Records regulations: The Federal rules restrict any use of the information to criminally investigate or prosecute any alcohol or drug abuse patient.[facility] HospitalIn the event this information is protected by the Federal Confidentiality of Alcohol and Drug Abuse Patient Records regulations: The Federal rules restrict any use of the information to criminally investigate or prosecute any alcohol or drug abuse patient.[facility] HospitalIn the event this information is protected by the Federal Confidentiality of Alcohol and Drug Abuse Patient Records regulations: The Federal rules restrict any use of the information to criminally investigate or prosecute any alcohol or drug abuse patient.[facility] HospitalIn the event this information is protected by the Federal Confidentiality of Alcohol and Drug Abuse Patient Records regulations: The Federal rules restrict any use of the information to criminally investigate or prosecute any alcohol or drug abuse patient.[facility] HospitalIn the event this information is protected by the Federal Confidentiality of Alcohol and Drug Abuse Patient Records regulations: The Federal rules restrict any use of the information to criminally investigate or prosecute any alcohol or drug abuse patient.[facility] HospitalIn the event this information is protected by the Federal Confidentiality of Alcohol and Drug Abuse Patient Records regulations: The Federal rules restrict any use of the information to criminally investigate or prosecute any alcohol or drug abuse patient.[facility] HospitalIn the event this information is protected by the Federal Confidentiality of Alcohol and Drug Abuse Patient Records regulations: The Federal rules restrict any use of the information to criminally investigate or prosecute any alcohol or drug abuse patient.[facility] HospitalIn the event this information is protected by the Federal Confidentiality of Alcohol and Drug Abuse Patient Records regulations: The Federal rules restrict any use of the information to criminally investigate or prosecute any alcohol or drug abuse patient.[facility] HospitalIn the event this information is protected by the Federal Confidentiality of Alcohol and Drug Abuse Patient Records regulations: The Federal rules restrict any use of the information to criminally investigate or prosecute any alcohol or drug abuse patient.[facility] HospitalIn the event this information is protected by the Federal Confidentiality of Alcohol and Drug Abuse Patient Records regulations: The Federal rules restrict any use of the information to criminally investigate or prosecute any alcohol or drug abuse patient.[facility] HospitalIn the event this information is protected by the Federal Confidentiality of Alcohol and Drug Abuse Patient Records regulations: The Federal rules restrict any use of the information to criminally investigate or prosecute any alcohol or drug abuse patient.[facility] HospitalIn the event this information is protected by the Federal Confidentiality of Alcohol and Drug Abuse Patient Records regulations: The Federal rules restrict any use of the information to criminally investigate or prosecute any alcohol or drug abuse patient.[facility] HospitalIn the event this information is protected by the Federal Confidentiality of Alcohol and Drug Abuse Patient Records regulations: The Federal rules restrict any use of the information to criminally investigate or prosecute any alcohol or drug abuse patient.[facility] HospitalIn the event this information is protected by the Federal Confidentiality of Alcohol and Drug Abuse Patient Records regulations: The Federal rules restrict any use of the information to criminally investigate or prosecute any alcohol or drug abuse patient.[facility] HospitalIn the event this information is protected by the Federal Confidentiality of Alcohol and Drug Abuse Patient Records regulations: The Federal rules restrict any use of the information to criminally investigate or prosecute any alcohol or drug abuse patient.[facility] HospitalIn the event this information is protected by the Federal Confidentiality of Alcohol and Drug Abuse Patient Records regulations: The Federal rules restrict any use of the information to criminally investigate or prosecute any alcohol or drug abuse patient.[facility] HospitalIn the event this information is protected by the Federal Confidentiality of Alcohol and Drug Abuse Patient Records regulations: The Federal rules restrict any use of the information to criminally investigate or prosecute any alcohol or drug abuse patient.[facility] HospitalIn the event this information is protected by the Federal Confidentiality of Alcohol and Drug Abuse Patient Records regulations: The Federal rules restrict any use of the information to criminally investigate or prosecute any alcohol or drug abuse patient.[facility] HospitalIn the event this information is protected by the Federal Confidentiality of Alcohol and Drug Abuse Patient Records regulations: The Federal rules restrict any use of the information to criminally investigate or prosecute any alcohol or drug abuse patient.[facility] HospitalIn the event this information is protected by the Federal Confidentiality of Alcohol and Drug Abuse Patient Records regulations: The Federal rules restrict any use of the information to criminally investigate or prosecute any alcohol or drug abuse patient.[facility] HospitalIn the event this information is protected by the Federal Confidentiality of Alcohol and Drug Abuse Patient Records regulations: The Federal rules restrict any use of the information to criminally investigate or prosecute any alcohol or drug abuse patient.[facility] HospitalIn the event this information is protected by the Federal Confidentiality of Alcohol and Drug Abuse Patient Records regulations: The Federal rules restrict any use of the information to criminally investigate or prosecute any alcohol or drug abuse patient.[facility] HospitalIn the event this information is protected by the Federal Confidentiality of Alcohol and Drug Abuse Patient Records regulations: The Federal rules restrict any use of the information to criminally investigate or prosecute any alcohol or drug abuse patient.[facility] HospitalIn the event this information is protected by the Federal Confidentiality of Alcohol and Drug Abuse Patient Records regulations: The Federal rules restrict any use of the information to criminally investigate or prosecute any alcohol or drug abuse patient.[facility] HospitalIn the event this information is protected by the Federal Confidentiality of Alcohol and Drug Abuse Patient Records regulations: The Federal rules restrict any use of the information to criminally investigate or prosecute any alcohol or drug abuse patient.[facility] HospitalIn the event this information is protected by the Federal Confidentiality of Alcohol and Drug Abuse Patient Records regulations: The Federal rules restrict any use of the information to criminally investigate or prosecute any alcohol or drug abuse patient.[facility] HospitalIn the event this information is protected by the Federal Confidentiality of Alcohol and Drug Abuse Patient Records regulations: The Federal rules restrict any use of the information to criminally investigate or prosecute any alcohol or drug abuse patient.[facility] HospitalIn the event this information is protected by the Federal Confidentiality of Alcohol and Drug Abuse Patient Records regulations: The Federal rules restrict any use of the information to criminally investigate or prosecute any alcohol or drug abuse patient.[facility] HospitalIn the event this information is protected by the Federal Confidentiality of Alcohol and Drug Abuse Patient Records regulations: The Federal rules restrict any use of the information to criminally investigate or prosecute any alcohol or drug abuse patient.[facility] HospitalIn the event this information is protected by the Federal Confidentiality of Alcohol and Drug Abuse Patient Records regulations: The Federal rules restrict any use of the information to criminally investigate or prosecute any alcohol or drug abuse patient.[facility] HospitalIn the event this information is protected by the Federal Confidentiality of Alcohol and Drug Abuse Patient Records regulations: The Federal rules restrict any use of the information to criminally investigate or prosecute any alcohol or drug abuse patient.[facility] HospitalIn the event this information is protected by the Federal Confidentiality of Alcohol and Drug Abuse Patient Records regulations: The Federal rules restrict any use of the information to criminally investigate or prosecute any alcohol or drug abuse patient.[facility] HospitalIn the event this information is protected by the Federal Confidentiality of Alcohol and Drug Abuse Patient Records regulations: The Federal rules restrict any use of the information to criminally investigate or prosecute any alcohol or drug abuse patient.[facility] HospitalIn the event this information is protected by the Federal Confidentiality of Alcohol and Drug Abuse Patient Records regulations: The Federal rules restrict any use of the information to criminally investigate or prosecute any alcohol or drug abuse patient.[facility]In the event this information is protected by the Federal Confidentiality of Alcohol and Drug Abuse Patient Records regulations: The Federal rules restrict any use of the information to criminally investigate or prosecute any alcohol or drug abuse patient.[facility]In the event this information is protected by the Federal Confidentiality of Alcohol and Drug Abuse Patient Records regulations: The Federal rules restrict any use of the information to criminally investigate or prosecute any alcohol or drug abuse patient.[facility]In the event this information is protected by the Federal Confidentiality of Alcohol and Drug Abuse Patient Records regulations: The Federal rules restrict any use of the information to criminally investigate or prosecute any alcohol or drug abuse patient.[facility] HospitalIn the event this information is protected by the Federal Confidentiality of Alcohol and Drug Abuse Patient Records regulations: The Federal rules restrict any use of the information to criminally investigate or prosecute any alcohol or drug abuse patient.[facility] HospitalIn the event this information is protected by the Federal Confidentiality of Alcohol and Drug Abuse Patient Records regulations: The Federal rules restrict any use of the information to criminally investigate or prosecute any alcohol or drug abuse patient.[facility] HospitalIn the event this information is protected by the Federal Confidentiality of Alcohol and Drug Abuse Patient Records regulations: The Federal rules restrict any use of the information to criminally investigate or prosecute any alcohol or drug abuse patient.[facility] HospitalIn the event this information is protected by the Federal Confidentiality of Alcohol and Drug Abuse Patient Records regulations: The Federal rules restrict any use of the information to criminally investigate or prosecute any alcohol or drug abuse patient.[facility] HospitalIn the event this information is protected by the Federal Confidentiality of Alcohol and Drug Abuse Patient Records regulations: The Federal rules restrict any use of the information to criminally investigate or prosecute any alcohol or drug abuse patient.[facility] HospitalIn the event this information is protected by the Federal Confidentiality of Alcohol and Drug Abuse Patient Records regulations: The Federal rules restrict any use of the information to criminally investigate or prosecute any alcohol or drug abuse patient.[facility] HospitalIn the event this information is protected by the Federal Confidentiality of Alcohol and Drug Abuse Patient Records regulations: The Federal rules restrict any use of the information to criminally investigate or prosecute any alcohol or drug abuse patient.[facility] HospitalIn the event this information is protected by the Federal Confidentiality of Alcohol and Drug Abuse Patient Records regulations: The Federal rules restrict any use of the information to criminally investigate or prosecute any alcohol or drug abuse patient.[facility] HospitalIn the event this information is protected by the Federal Confidentiality of Alcohol and Drug Abuse Patient Records regulations: The Federal rules restrict any use of the information to criminally investigate or prosecute any alcohol or drug abuse patient.[facility] HospitalIn the event this information is protected by the Federal Confidentiality of Alcohol and Drug Abuse Patient Records regulations: The Federal rules restrict any use of the information to criminally investigate or prosecute any alcohol or drug abuse patient.[facility] HospitalIn the event this information is protected by the Federal Confidentiality of Alcohol and Drug Abuse Patient Records regulations: The Federal rules restrict any use of the information to criminally investigate or prosecute any alcohol or drug abuse patient.[facility] HospitalIn the event this information is protected by the Federal Confidentiality of Alcohol and Drug Abuse Patient Records regulations: The Federal rules restrict any use of the information to criminally investigate or prosecute any alcohol or drug abuse patient.[facility] HospitalIn the event this information is protected by the Federal Confidentiality of Alcohol and Drug Abuse Patient Records regulations: The Federal rules restrict any use of the information to criminally investigate or prosecute any alcohol or drug abuse patient.[facility] HospitalIn the event this information is protected by the Federal Confidentiality of Alcohol and Drug Abuse Patient Records regulations: The Federal rules restrict any use of the information to criminally investigate or prosecute any alcohol or drug abuse patient.[facility] HospitalIn the event this information is protected by the Federal Confidentiality of Alcohol and Drug Abuse Patient Records regulations: The Federal rules restrict any use of the information to criminally investigate or prosecute any alcohol or drug abuse patient.[facility] HospitalIn the event this information is protected by the Federal Confidentiality of Alcohol and Drug Abuse Patient Records regulations: The Federal rules restrict any use of the information to criminally investigate or prosecute any alcohol or drug abuse patient.[facility] HospitalIn the event this information is protected by the Federal Confidentiality of Alcohol and Drug Abuse Patient Records regulations: The Federal rules restrict any use of the information to criminally investigate or prosecute any alcohol or drug abuse patient.[facility] HospitalIn the event this information is protected by the Federal Confidentiality of Alcohol and Drug Abuse Patient Records regulations: The Federal rules restrict any use of the information to criminally investigate or prosecute any alcohol or drug abuse patient.[facility] HospitalIn the event this information is protected by the Federal Confidentiality of Alcohol and Drug Abuse Patient Records regulations: The Federal rules restrict any use of the information to criminally investigate or prosecute any alcohol or drug abuse patient.[facility] HospitalIn the event this information is protected by the Federal Confidentiality of Alcohol and Drug Abuse Patient Records regulations: The Federal rules restrict any use of the information to criminally investigate or prosecute any alcohol or drug abuse patient.[facility] HospitalIn the event this information is protected by the Federal Confidentiality of Alcohol and Drug Abuse Patient Records regulations: The Federal rules restrict any use of the information to criminally investigate or prosecute any alcohol or drug abuse patient.[facility] HospitalIn the event this information is protected by the Federal Confidentiality of Alcohol and Drug Abuse Patient Records regulations: The Federal rules restrict any use of the information to criminally investigate or prosecute any alcohol or drug abuse patient.[facility] HospitalIn the event this information is protected by the Federal Confidentiality of Alcohol and Drug Abuse Patient Records regulations: The Federal rules restrict any use of the information to criminally investigate or prosecute any alcohol or drug abuse patient.[facility] HospitalIn the event this information is protected by the Federal Confidentiality of Alcohol and Drug Abuse Patient Records regulations: The Federal rules restrict any use of the information to criminally investigate or prosecute any alcohol or drug abuse patient.[facility] HospitalIn the event this information is protected by the Federal Confidentiality of Alcohol and Drug Abuse Patient Records regulations: The Federal rules restrict any use of the information to criminally investigate or prosecute any alcohol or drug abuse patient.[facility] HospitalIn the event this information is protected by the Federal Confidentiality of Alcohol and Drug Abuse Patient Records regulations: The Federal rules restrict any use of the information to criminally investigate or prosecute any alcohol or drug abuse patient.[facility] HospitalIn the event this information is protected by the Federal Confidentiality of Alcohol and Drug Abuse Patient Records regulations: The Federal rules restrict any use of the information to criminally investigate or prosecute any alcohol or drug abuse patient.[facility] HospitalIn the event this information is protected by the Federal Confidentiality of Alcohol and Drug Abuse Patient Records regulations: The Federal rules restrict any use of the information to criminally investigate or prosecute any alcohol or drug abuse patient.[facility] HospitalIn the event this information is protected by the Federal Confidentiality of Alcohol and Drug Abuse Patient Records regulations: The Federal rules restrict any use of the information to criminally investigate or prosecute any alcohol or drug abuse patient.[facility] HospitalIn the event this information is protected by the Federal Confidentiality of Alcohol and Drug Abuse Patient Records regulations: The Federal rules restrict any use of the information to criminally investigate or prosecute any alcohol or drug abuse patient.[facility] HospitalIn the event this information is protected by the Federal Confidentiality of Alcohol and Drug Abuse Patient Records regulations: The Federal rules restrict any use of the information to criminally investigate or prosecute any alcohol or drug abuse patient.[facility] HospitalIn the event this information is protected by the Federal Confidentiality of Alcohol and Drug Abuse Patient Records regulations: The Federal rules restrict any use of the information to criminally investigate or prosecute any alcohol or drug abuse patient.[facility] HospitalIn the event this information is protected by the Federal Confidentiality of Alcohol and Drug Abuse Patient Records regulations: The Federal rules restrict any use of the information to criminally investigate or prosecute any alcohol or drug abuse patient.[facility] HospitalIn the event this information is protected by the Federal Confidentiality of Alcohol and Drug Abuse Patient Records regulations: The Federal rules restrict any use of the information to criminally investigate or prosecute any alcohol or drug abuse patient.[facility] HospitalIn the event this information is protected by the Federal Confidentiality of Alcohol and Drug Abuse Patient Records regulations: The Federal rules restrict any use of the information to criminally investigate or prosecute any alcohol or drug abuse patient.[facility] HospitalIn the event this information is protected by the Federal Confidentiality of Alcohol and Drug Abuse Patient Records regulations: The Federal rules restrict any use of the information to criminally investigate or prosecute any alcohol or drug abuse patient.[facility] HospitalIn the event this information is protected by the Federal Confidentiality of Alcohol and Drug Abuse Patient Records regulations: The Federal rules restrict any use of the information to criminally investigate or prosecute any alcohol or drug abuse patient.[facility] HospitalIn the event this information is protected by the Federal Confidentiality of Alcohol and Drug Abuse Patient Records regulations: The Federal rules restrict any use of the information to criminally investigate or prosecute any alcohol or drug abuse patient.[facility] HospitalIn the event this information is protected by the Federal Confidentiality of Alcohol and Drug Abuse Patient Records regulations: The Federal rules restrict any use of the information to criminally investigate or prosecute any alcohol or drug abuse patient.[facility] HospitalIn the event this information is protected by the Federal Confidentiality of Alcohol and Drug Abuse Patient Records regulations: The Federal rules restrict any use of the information to criminally investigate or prosecute any alcohol or drug abuse patient.[facility] HospitalIn the event this information is protected by the Federal Confidentiality of Alcohol and Drug Abuse Patient Records regulations: The Federal rules restrict any use of the information to criminally investigate or prosecute any alcohol or drug abuse patient.[facility] HospitalIn the event this information is protected by the Federal Confidentiality of Alcohol and Drug Abuse Patient Records regulations: The Federal rules restrict any use of the information to criminally investigate or prosecute any alcohol or drug abuse patient.[facility] HospitalIn the event this information is protected by the Federal Confidentiality of Alcohol and Drug Abuse Patient Records regulations: The Federal rules restrict any use of the information to criminally investigate or prosecute any alcohol or drug abuse patient.[facility] HospitalIn the event this information is protected by the Federal Confidentiality of Alcohol and Drug Abuse Patient Records regulations: The Federal rules restrict any use of the information to criminally investigate or prosecute any alcohol or drug abuse patient.[facility] HospitalIn the event this information is protected by the Federal Confidentiality of Alcohol and Drug Abuse Patient Records regulations: The Federal rules restrict any use of the information to criminally investigate or prosecute any alcohol or drug abuse patient.[facility] HospitalIn the event this information is protected by the Federal Confidentiality of Alcohol and Drug Abuse Patient Records regulations: The Federal rules restrict any use of the information to criminally investigate or prosecute any alcohol or drug abuse patient.[facility] HospitalIn the event this information is protected by the Federal Confidentiality of Alcohol and Drug Abuse Patient Records regulations: The Federal rules restrict any use of the information to criminally investigate or prosecute any alcohol or drug abuse patient.[facility] HospitalIn the event this information is protected by the Federal Confidentiality of Alcohol and Drug Abuse Patient Records regulations: The Federal rules restrict any use of the information to criminally investigate or prosecute any alcohol or drug abuse patient.[facility] HospitalIn the event this information is protected by the Federal Confidentiality of Alcohol and Drug Abuse Patient Records regulations: The Federal rules restrict any use of the information to criminally investigate or prosecute any alcohol or drug abuse patient.[facility] HospitalIn the event this information is protected by the Federal Confidentiality of Alcohol and Drug Abuse Patient Records regulations: The Federal rules restrict any use of the information to criminally investigate or prosecute any alcohol or drug abuse patient.[facility] HospitalIn the event this information is protected by the Federal Confidentiality of Alcohol and Drug Abuse Patient Records regulations: The Federal rules restrict any use of the information to criminally investigate or prosecute any alcohol or drug abuse patient.[facility] HospitalIn the event this information is protected by the Federal Confidentiality of Alcohol and Drug Abuse Patient Records regulations: The Federal rules restrict any use of the information to criminally investigate or prosecute any alcohol or drug abuse patient.[facility] HospitalIn the event this information is protected by the Federal Confidentiality of Alcohol and Drug Abuse Patient Records regulations: The Federal rules restrict any use of the information to criminally investigate or prosecute any alcohol or drug abuse patient.[facility] HospitalIn the event this information is protected by the Federal Confidentiality of Alcohol and Drug Abuse Patient Records regulations: The Federal rules restrict any use of the information to criminally investigate or prosecute any alcohol or drug abuse patient.[facility] HospitalIn the event this information is protected by the Federal Confidentiality of Alcohol and Drug Abuse Patient Records regulations: The Federal rules restrict any use of the information to criminally investigate or prosecute any alcohol or drug abuse patient.[facility] HospitalIn the event this information is protected by the Federal Confidentiality of Alcohol and Drug Abuse Patient Records regulations: The Federal rules restrict any use of the information to criminally investigate or prosecute any alcohol or drug abuse patient.[facility] HospitalIn the event this information is protected by the Federal Confidentiality of Alcohol and Drug Abuse Patient Records regulations: The Federal rules restrict any use of the information to criminally investigate or prosecute any alcohol or drug abuse patient.[facility] HospitalIn the event this information is protected by the Federal Confidentiality of Alcohol and Drug Abuse Patient Records regulations: The Federal rules restrict any use of the information to criminally investigate or prosecute any alcohol or drug abuse patient.[facility] HospitalIn the event this information is protected by the Federal Confidentiality of Alcohol and Drug Abuse Patient Records regulations: The Federal rules restrict any use of the information to criminally investigate or prosecute any alcohol or drug abuse patient.[facility] HospitalIn the event this information is protected by the Federal Confidentiality of Alcohol and Drug Abuse Patient Records regulations: The Federal rules restrict any use of the information to criminally investigate or prosecute any alcohol or drug abuse patient.[facility] HospitalIn the event this information is protected by the Federal Confidentiality of Alcohol and Drug Abuse Patient Records regulations: The Federal rules restrict any use of the information to criminally investigate or prosecute any alcohol or drug abuse patient.[facility] HospitalIn the event this information is protected by the Federal Confidentiality of Alcohol and Drug Abuse Patient Records regulations: The Federal rules restrict any use of the information to criminally investigate or prosecute any alcohol or drug abuse patient.[facility] HospitalIn the event this information is protected by the Federal Confidentiality of Alcohol and Drug Abuse Patient Records regulations: The Federal rules restrict any use of the information to criminally investigate or prosecute any alcohol or drug abuse patient.[facility] HospitalIn the event this information is protected by the Federal Confidentiality of Alcohol and Drug Abuse Patient Records regulations: The Federal rules restrict any use of the information to criminally investigate or prosecute any alcohol or drug abuse patient.[facility] HospitalIn the event this information is protected by the Federal Confidentiality of Alcohol and Drug Abuse Patient Records regulations: The Federal rules restrict any use of the information to criminally investigate or prosecute any alcohol or drug abuse patient.[facility] HospitalIn the event this information is protected by the Federal Confidentiality of Alcohol and Drug Abuse Patient Records regulations: The Federal rules restrict any use of the information to criminally investigate or prosecute any alcohol or drug abuse patient.[facility] HospitalIn the event this information is protected by the Federal Confidentiality of Alcohol and Drug Abuse Patient Records regulations: The Federal rules restrict any use of the information to criminally investigate or prosecute any alcohol or drug abuse patient.[facility] HospitalIn the event this information is protected by the Federal Confidentiality of Alcohol and Drug Abuse Patient Records regulations: The Federal rules restrict any use of the information to criminally investigate or prosecute any alcohol or drug abuse patient.[facility] HospitalIn the event this information is protected by the Federal Confidentiality of Alcohol and Drug Abuse Patient Records regulations: The Federal rules restrict any use of the information to criminally investigate or prosecute any alcohol or drug abuse patient.[facility] HospitalIn the event this information is protected by the Federal Confidentiality of Alcohol and Drug Abuse Patient Records regulations: The Federal rules restrict any use of the information to criminally investigate or prosecute any alcohol or drug abuse patient.[facility] HospitalIn the event this information is protected by the Federal Confidentiality of Alcohol and Drug Abuse Patient Records regulations: The Federal rules restrict any use of the information to criminally investigate or prosecute any alcohol or drug abuse patient.[facility] HospitalIn the event this information is protected by the Federal Confidentiality of Alcohol and Drug Abuse Patient Records regulations: The Federal rules restrict any use of the information to criminally investigate or prosecute any alcohol or drug abuse patient.[facility] HospitalIn the event this information is protected by the Federal Confidentiality of Alcohol and Drug Abuse Patient Records regulations: The Federal rules restrict any use of the information to criminally investigate or prosecute any alcohol or drug abuse patient.[facility] HospitalIn the event this information is protected by the Federal Confidentiality of Alcohol and Drug Abuse Patient Records regulations: The Federal rules restrict any use of the information to criminally investigate or prosecute any alcohol or drug abuse patient.[facility] HospitalIn the event this information is protected by the Federal Confidentiality of Alcohol and Drug Abuse Patient Records regulations: The Federal rules restrict any use of the information to criminally investigate or prosecute any alcohol or drug abuse patient.[facility]In the event this information is protected by the Federal Confidentiality of Alcohol and Drug Abuse Patient Records regulations: The Federal rules restrict any use of the information to criminally investigate or prosecute any alcohol or drug abuse patient.[facility] HospitalIn the event this information is protected by the Federal Confidentiality of Alcohol and Drug Abuse Patient Records regulations: The Federal rules restrict any use of the information to criminally investigate or prosecute any alcohol or drug abuse patient.[facility] HospitalIn the event this information is protected by the Federal Confidentiality of Alcohol and Drug Abuse Patient Records regulations: The Federal rules restrict any use of the information to criminally investigate or prosecute any alcohol or drug abuse patient.[facility] HospitalIn the event this information is protected by the Federal Confidentiality of Alcohol and Drug Abuse Patient Records regulations: The Federal rules restrict any use of the information to criminally investigate or prosecute any alcohol or drug abuse patient.[facility] HospitalIn the event this information is protected by the Federal Confidentiality of Alcohol and Drug Abuse Patient Records regulations: The Federal rules restrict any use of the information to criminally investigate or prosecute any alcohol or drug abuse patient.[facility] HospitalIn the event this information is protected by the Federal Confidentiality of Alcohol and Drug Abuse Patient Records regulations: The Federal rules restrict any use of the information to criminally investigate or prosecute any alcohol or drug abuse patient.[facility] HospitalIn the event this information is protected by the Federal Confidentiality of Alcohol and Drug Abuse Patient Records regulations: The Federal rules restrict any use of the information to criminally investigate or prosecute any alcohol or drug abuse patient.[facility] HospitalIn the event this information is protected by the Federal Confidentiality of Alcohol and Drug Abuse Patient Records regulations: The Federal rules restrict any use of the information to criminally investigate or prosecute any alcohol or drug abuse patient.[facility] HospitalIn the event this information is protected by the Federal Confidentiality of Alcohol and Drug Abuse Patient Records regulations: The Federal rules restrict any use of the information to criminally investigate or prosecute any alcohol or drug abuse patient.[facility] HospitalIn the event this information is protected by the Federal Confidentiality of Alcohol and Drug Abuse Patient Records regulations: The Federal rules restrict any use of the information to criminally investigate or prosecute any alcohol or drug abuse patient.[facility] HospitalIn the event this information is protected by the Federal Confidentiality of Alcohol and Drug Abuse Patient Records regulations: The Federal rules restrict any use of the information to criminally investigate or prosecute any alcohol or drug abuse patient.[facility] HospitalIn the event this information is protected by the Federal Confidentiality of Alcohol and Drug Abuse Patient Records regulations: The Federal rules restrict any use of the information to criminally investigate or prosecute any alcohol or drug abuse patient.[facility] HospitalIn the event this information is protected by the Federal Confidentiality of Alcohol and Drug Abuse Patient Records regulations: The Federal rules restrict any use of the information to criminally investigate or prosecute any alcohol or drug abuse patient.[facility] HospitalIn the event this information is protected by the Federal Confidentiality of Alcohol and Drug Abuse Patient Records regulations: The Federal rules restrict any use of the information to criminally investigate or prosecute any alcohol or drug abuse patient.[facility] HospitalIn the event this information is protected by the Federal Confidentiality of Alcohol and Drug Abuse Patient Records regulations: The Federal rules restrict any use of the information to criminally investigate or prosecute any alcohol or drug abuse patient.[facility] HospitalIn the event this information is protected by the Federal Confidentiality of Alcohol and Drug Abuse Patient Records regulations: The Federal rules restrict any use of the information to criminally investigate or prosecute any alcohol or drug abuse patient.[facility] HospitalIn the event this information is protected by the Federal Confidentiality of Alcohol and Drug Abuse Patient Records regulations: The Federal rules restrict any use of the information to criminally investigate or prosecute any alcohol or drug abuse patient.[facility] HospitalIn the event this information is protected by the Federal Confidentiality of Alcohol and Drug Abuse Patient Records regulations: The Federal rules restrict any use of the information to criminally investigate or prosecute any alcohol or drug abuse patient.[facility] HospitalIn the event this information is protected by the Federal Confidentiality of Alcohol and Drug Abuse Patient Records regulations: The Federal rules restrict any use of the information to criminally investigate or prosecute any alcohol or drug abuse patient.[facility] HospitalIn the event this information is protected by the Federal Confidentiality of Alcohol and Drug Abuse Patient Records regulations: The Federal rules restrict any use of the information to criminally investigate or prosecute any alcohol or drug abuse patient.[facility] HospitalIn the event this information is protected by the Federal Confidentiality of Alcohol and Drug Abuse Patient Records regulations: The Federal rules restrict any use of the information to criminally investigate or prosecute any alcohol or drug abuse patient.[facility] HospitalIn the event this information is protected by the Federal Confidentiality of Alcohol and Drug Abuse Patient Records regulations: The Federal rules restrict any use of the information to criminally investigate or prosecute any alcohol or drug abuse patient.[facility] HospitalIn the event this information is protected by the Federal Confidentiality of Alcohol and Drug Abuse Patient Records regulations: The Federal rules restrict any use of the information to criminally investigate or prosecute any alcohol or drug abuse patient.[facility] HospitalIn the event this information is protected by the Federal Confidentiality of Alcohol and Drug Abuse Patient Records regulations: The Federal rules restrict any use of the information to criminally investigate or prosecute any alcohol or drug abuse patient.[facility] HospitalIn the event this information is protected by the Federal Confidentiality of Alcohol and Drug Abuse Patient Records regulations: The Federal rules restrict any use of the information to criminally investigate or prosecute any alcohol or drug abuse patient.[facility] HospitalIn the event this information is protected by the Federal Confidentiality of Alcohol and Drug Abuse Patient Records regulations: The Federal rules restrict any use of the information to criminally investigate or prosecute any alcohol or drug abuse patient.[facility] HospitalIn the event this information is protected by the Federal Confidentiality of Alcohol and Drug Abuse Patient Records regulations: The Federal rules restrict any use of the information to criminally investigate or prosecute any alcohol or drug abuse patient.[facility] HospitalIn the event this information is protected by the Federal Confidentiality of Alcohol and Drug Abuse Patient Records regulations: The Federal rules restrict any use of the information to criminally investigate or prosecute any alcohol or drug abuse patient.[facility] HospitalIn the event this information is protected by the Federal Confidentiality of Alcohol and Drug Abuse Patient Records regulations: The Federal rules restrict any use of the information to criminally investigate or prosecute any alcohol or drug abuse patient.[facility] HospitalIn the event this information is protected by the Federal Confidentiality of Alcohol and Drug Abuse Patient Records regulations: The Federal rules restrict any use of the information to criminally investigate or prosecute any alcohol or drug abuse patient.[facility] HospitalIn the event this information is protected by the Federal Confidentiality of Alcohol and Drug Abuse Patient Records regulations: The Federal rules restrict any use of the information to criminally investigate or prosecute any alcohol or drug abuse patient.[facility] HospitalIn the event this information is protected by the Federal Confidentiality of Alcohol and Drug Abuse Patient Records regulations: The Federal rules restrict any use of the information to criminally investigate or prosecute any alcohol or drug abuse patient.[facility] HospitalIn the event this information is protected by the Federal Confidentiality of Alcohol and Drug Abuse Patient Records regulations: The Federal rules restrict any use of the information to criminally investigate or prosecute any alcohol or drug abuse patient.[facility] HospitalIn the event this information is protected by the Federal Confidentiality of Alcohol and Drug Abuse Patient Records regulations: The Federal rules restrict any use of the information to criminally investigate or prosecute any alcohol or drug abuse patient.[facility] HospitalIn the event this information is protected by the Federal Confidentiality of Alcohol and Drug Abuse Patient Records regulations: The Federal rules restrict any use of the information to criminally investigate or prosecute any alcohol or drug abuse patient.[facility] HospitalIn the event this information is protected by the Federal Confidentiality of Alcohol and Drug Abuse Patient Records regulations: The Federal rules restrict any use of the information to criminally investigate or prosecute any alcohol or drug abuse patient.[facility] HospitalIn the event this information is protected by the Federal Confidentiality of Alcohol and Drug Abuse Patient Records regulations: The Federal rules restrict any use of the information to criminally investigate or prosecute any alcohol or drug abuse patient.[facility] HospitalIn the event this information is protected by the Federal Confidentiality of Alcohol and Drug Abuse Patient Records regulations: The Federal rules restrict any use of the information to criminally investigate or prosecute any alcohol or drug abuse patient.[facility] HospitalIn the event this information is protected by the Federal Confidentiality of Alcohol and Drug Abuse Patient Records regulations: The Federal rules restrict any use of the information to criminally investigate or prosecute any alcohol or drug abuse patient.[facility] HospitalIn the event this information is protected by the Federal Confidentiality of Alcohol and Drug Abuse Patient Records regulations: The Federal rules restrict any use of the information to criminally investigate or prosecute any alcohol or drug abuse patient.[facility] HospitalIn the event this information is protected by the Federal Confidentiality of Alcohol and Drug Abuse Patient Records regulations: The Federal rules restrict any use of the information to criminally investigate or prosecute any alcohol or drug abuse patient.[facility] HospitalIn the event this information is protected by the Federal Confidentiality of Alcohol and Drug Abuse Patient Records regulations: The Federal rules restrict any use of the information to criminally investigate or prosecute any alcohol or drug abuse patient.[facility] HospitalIn the event this information is protected by the Federal Confidentiality of Alcohol and Drug Abuse Patient Records regulations: The Federal rules restrict any use of the information to criminally investigate or prosecute any alcohol or drug abuse patient.[facility] HospitalIn the event this information is protected by the Federal Confidentiality of Alcohol and Drug Abuse Patient Records regulations: The Federal rules restrict any use of the information to criminally investigate or prosecute any alcohol or drug abuse patient.[facility] HospitalIn the event this information is protected by the Federal Confidentiality of Alcohol and Drug Abuse Patient Records regulations: The Federal rules restrict any use of the information to criminally investigate or prosecute any alcohol or drug abuse patient.[facility] HospitalIn the event this information is protected by the Federal Confidentiality of Alcohol and Drug Abuse Patient Records regulations: The Federal rules restrict any use of the information to criminally investigate or prosecute any alcohol or drug abuse patient.[facility] HospitalIn the event this information is protected by the Federal Confidentiality of Alcohol and Drug Abuse Patient Records regulations: The Federal rules restrict any use of the information to criminally investigate or prosecute any alcohol or drug abuse patient.[facility] HospitalIn the event this information is protected by the Federal Confidentiality of Alcohol and Drug Abuse Patient Records regulations: The Federal rules restrict any use of the information to criminally investigate or prosecute any alcohol or drug abuse patient.[facility] HospitalIn the event this information is protected by the Federal Confidentiality of Alcohol and Drug Abuse Patient Records regulations: The Federal rules restrict any use of the information to criminally investigate or prosecute any alcohol or drug abuse patient.[facility] HospitalIn the event this information is protected by the Federal Confidentiality of Alcohol and Drug Abuse Patient Records regulations: The Federal rules restrict any use of the information to criminally investigate or prosecute any alcohol or drug abuse patient.[facility] HospitalIn the event this information is protected by the Federal Confidentiality of Alcohol and Drug Abuse Patient Records regulations: The Federal rules restrict any use of the information to criminally investigate or prosecute any alcohol or drug abuse patient.[facility] HospitalIn the event this information is protected by the Federal Confidentiality of Alcohol and Drug Abuse Patient Records regulations: The Federal rules restrict any use of the information to criminally investigate or prosecute any alcohol or drug abuse patient.[facility] HospitalIn the event this information is protected by the Federal Confidentiality of Alcohol and Drug Abuse Patient Records regulations: The Federal rules restrict any use of the information to criminally investigate or prosecute any alcohol or drug abuse patient.[facility] HospitalIn the event this information is protected by the Federal Confidentiality of Alcohol and Drug Abuse Patient Records regulations: The Federal rules restrict any use of the information to criminally investigate or prosecute any alcohol or drug abuse patient.[facility] HospitalIn the event this information is protected by the Federal Confidentiality of Alcohol and Drug Abuse Patient Records regulations: The Federal rules restrict any use of the information to criminally investigate or prosecute any alcohol or drug abuse patient.[facility] HospitalIn the event this information is protected by the Federal Confidentiality of Alcohol and Drug Abuse Patient Records regulations: The Federal rules restrict any use of the information to criminally investigate or prosecute any alcohol or drug abuse patient.[facility] HospitalIn the event this information is protected by the Federal Confidentiality of Alcohol and Drug Abuse Patient Records regulations: The Federal rules restrict any use of the information to criminally investigate or prosecute any alcohol or drug abuse patient.[facility] HospitalIn the event this information is protected by the Federal Confidentiality of Alcohol and Drug Abuse Patient Records regulations: The Federal rules restrict any use of the information to criminally investigate or prosecute any alcohol or drug abuse patient.[facility] HospitalIn the event this information is protected by the Federal Confidentiality of Alcohol and Drug Abuse Patient Records regulations: The Federal rules restrict any use of the information to criminally investigate or prosecute any alcohol or drug abuse patient.[facility] HospitalIn the event this information is protected by the Federal Confidentiality of Alcohol and Drug Abuse Patient Records regulations: The Federal rules restrict any use of the information to criminally investigate or prosecute any alcohol or drug abuse patient.[facility] HospitalIn the event this information is protected by the Federal Confidentiality of Alcohol and Drug Abuse Patient Records regulations: The Federal rules restrict any use of the information to criminally investigate or prosecute any alcohol or drug abuse patient.[facility] HospitalIn the event this information is protected by the Federal Confidentiality of Alcohol and Drug Abuse Patient Records regulations: The Federal rules restrict any use of the information to criminally investigate or prosecute any alcohol or drug abuse patient.[facility] HospitalIn the event this information is protected by the Federal Confidentiality of Alcohol and Drug Abuse Patient Records regulations: The Federal rules restrict any use of the information to criminally investigate or prosecute any alcohol or drug abuse patient.[facility] HospitalIn the event this information is protected by the Federal Confidentiality of Alcohol and Drug Abuse Patient Records regulations: The Federal rules restrict any use of the information to criminally investigate or prosecute any alcohol or drug abuse patient.[facility] HospitalIn the event this information is protected by the Federal Confidentiality of Alcohol and Drug Abuse Patient Records regulations: The Federal rules restrict any use of the information to criminally investigate or prosecute any alcohol or drug abuse patient.[facility] HospitalIn the event this information is protected by the Federal Confidentiality of Alcohol and Drug Abuse Patient Records regulations: The Federal rules restrict any use of the information to criminally investigate or prosecute any alcohol or drug abuse patient.[facility] HospitalIn the event this information is protected by the Federal Confidentiality of Alcohol and Drug Abuse Patient Records regulations: The Federal rules restrict any use of the information to criminally investigate or prosecute any alcohol or drug abuse patient.[facility] HospitalIn the event this information is protected by the Federal Confidentiality of Alcohol and Drug Abuse Patient Records regulations: The Federal rules restrict any use of the information to criminally investigate or prosecute any alcohol or drug abuse patient.[facility] HospitalIn the event this information is protected by the Federal Confidentiality of Alcohol and Drug Abuse Patient Records regulations: The Federal rules restrict any use of the information to criminally investigate or prosecute any alcohol or drug abuse patient.[facility] HospitalIn the event this information is protected by the Federal Confidentiality of Alcohol and Drug Abuse Patient Records regulations: The Federal rules restrict any use of the information to criminally investigate or prosecute any alcohol or drug abuse patient.[facility] HospitalIn the event this information is protected by the Federal Confidentiality of Alcohol and Drug Abuse Patient Records regulations: The Federal rules restrict any use of the information to criminally investigate or prosecute any alcohol or drug abuse patient.[facility] HospitalIn the event this information is protected by the Federal Confidentiality of Alcohol and Drug Abuse Patient Records regulations: The Federal rules restrict any use of the information to criminally investigate or prosecute any alcohol or drug abuse patient.[facility] HospitalIn the event this information is protected by the Federal Confidentiality of Alcohol and Drug Abuse Patient Records regulations: The Federal rules restrict any use of the information to criminally investigate or prosecute any alcohol or drug abuse patient.[facility] HospitalIn the event this information is protected by the Federal Confidentiality of Alcohol and Drug Abuse Patient Records regulations: The Federal rules restrict any use of the information to criminally investigate or prosecute any alcohol or drug abuse patient.[facility] HospitalIn the event this information is protected by the Federal Confidentiality of Alcohol and Drug Abuse Patient Records regulations: The Federal rules restrict any use of the information to criminally investigate or prosecute any alcohol or drug abuse patient.[facility] HospitalIn the event this information is protected by the Federal Confidentiality of Alcohol and Drug Abuse Patient Records regulations: The Federal rules restrict any use of the information to criminally investigate or prosecute any alcohol or drug abuse patient.[facility] HospitalIn the event this information is protected by the Federal Confidentiality of Alcohol and Drug Abuse Patient Records regulations: The Federal rules restrict any use of the information to criminally investigate or prosecute any alcohol or drug abuse patient.[facility] HospitalIn the event this information is protected by the Federal Confidentiality of Alcohol and Drug Abuse Patient Records regulations: The Federal rules restrict any use of the information to criminally investigate or prosecute any alcohol or drug abuse patient.[facility] HospitalIn the event this information is protected by the Federal Confidentiality of Alcohol and Drug Abuse Patient Records regulations: The Federal rules restrict any use of the information to criminally investigate or prosecute any alcohol or drug abuse patient.[facility] HospitalIn the event this information is protected by the Federal Confidentiality of Alcohol and Drug Abuse Patient Records regulations: The Federal rules restrict any use of the information to criminally investigate or prosecute any alcohol or drug abuse patient.[facility] HospitalIn the event this information is protected by the Federal Confidentiality of Alcohol and Drug Abuse Patient Records regulations: The Federal rules restrict any use of the information to criminally investigate or prosecute any alcohol or drug abuse patient.[facility] HospitalIn the event this information is protected by the Federal Confidentiality of Alcohol and Drug Abuse Patient Records regulations: The Federal rules restrict any use of the information to criminally investigate or prosecute any alcohol or drug abuse patient.[facility] HospitalIn the event this information is protected by the Federal Confidentiality of Alcohol and Drug Abuse Patient Records regulations: The Federal rules restrict any use of the information to criminally investigate or prosecute any alcohol or drug abuse patient.[facility] HospitalIn the event this information is protected by the Federal Confidentiality of Alcohol and Drug Abuse Patient Records regulations: The Federal rules restrict any use of the information to criminally investigate or prosecute any alcohol or drug abuse patient.[facility] HospitalIn the event this information is protected by the Federal Confidentiality of Alcohol and Drug Abuse Patient Records regulations: The Federal rules restrict any use of the information to criminally investigate or prosecute any alcohol or drug abuse patient.[facility] HospitalIn the event this information is protected by the Federal Confidentiality of Alcohol and Drug Abuse Patient Records regulations: The Federal rules restrict any use of the information to criminally investigate or prosecute any alcohol or drug abuse patient.[facility] HospitalIn the event this information is protected by the Federal Confidentiality of Alcohol and Drug Abuse Patient Records regulations: The Federal rules restrict any use of the information to criminally investigate or prosecute any alcohol or drug abuse patient.[facility] Reason for Visit (unrecogniz ed section and content) Reason Onset Date Comments Refill Request 02/18/2022 Reason Comments New Patient Specialty Diagnoses / Procedures Referred By Contac t Referred To Contact Neurosurgery Diagnoses Spinal stenosis of lumbar region with neurogenic claudication Abnormality of gait Procedures CONSULT TO NEUROSURGERY NEW PATIENT VISIT LEVEL 5 Gracy Sears, HIRAM.TRANSPORTATION DISPATCH MANAGER [address] [place] [id number] Referral ID Status Reason Start Date Expiration Date Visits Requested Visits Authorized [id number] Pending Review PCP Requested Referral 09/11/2022 1 1 Reason Comments Consult Specialty Diagnoses / Procedures Referred By Contac t Referred To Contact Diagnoses Pre-op testing Procedures REFER TO [facility] - PRE ANESTHESIA CONSULTATION CLINIC OFFICE/OUTPATIENT NEW HIGH MDM 60-74 MINUTES Steve Jo PA-C [id number] [place] [address] Referral ID Status Reason Start Date Expiration Date Visits Requested Visits Authorized [id number] Pending Review PCP Requested Referral 01/07/2022 01/07/2023 1 1 Reason Onset Date Comments Population Health Navigation Outreach 02/26/2022 Human care gaps Reason Comments Prescription Refills Reason [...] CERVICAL W/[place] [address] [place] [address] Mr Imaging Referral ID Status Reason Start Date Expiration Date V isits Requested Visits Authorized [id number] Closed Auto-Generate d Referral 08/28/2022 09/27/2022 1 1 Reason Comments Follow Up Reason Comments Orders Reason Comments Results Reason Comments ER F/U [facility] ER follow up 10/27 dx: broken ribs after falling at home Reason Onset Date Comments 11/12/2022 Reason Comments Information Reason Comments Hospital F/U [place] d/c 2 Reason Comments Patient Question Reason [...] Reason Comments Hospital Follow Up Reason Comments [facility] PT POC Reason Onset Date Comments Refill [...] bed to toilet in wheelchair. Reason Comments [employer] - Other Reason Comments Medication Request verbal orders for residential Reason Comments Verbal needed for SN frequency order. Reason Onset Date Comments Refill Request 07/23/2023 Reason Comments Follow Up 1 mth follow up. Reason Comments Rx for outpatient PT Reason Comments Radiology CT Specialty Diagnoses / Procedures Referred By Contac t Referred To Contact CT IMAGING Diagnoses Right flank pain Microscopic hematuria Procedures CT FLANK WO IVCON CT ABD & PELVIS W/O CONTRAST Marbella Zaidi PA-C [address] [place] [address] [place] [address] Referral ID Status Reason Start Date Expiration Date V isits Requested Visits Authorized [id number] Closed Auto-Generate d Referral 07/01/2023 07/30/2024 1 1 Reason Comments Urinary Frequency Frequency, urgency a nd burning x 5 days Reason Comments [facility] Order Needs Signed Reason Comments Established Patient Follow Up Reason Comments Follow Up 3 month exam Reason Comments Forms Surgical Clearance Reason Comments Radiology US Specialty Diagnoses / Procedures [facility] Referred To Contact US IMAGING Diagnoses Acute cystitis without hematuria Procedures US KIDNEY/BLADDER US RETROPERITONEAL REAL TIME W/IMAGE COMPLETE Abena Beckford, HIRAM.TRANSPORTATION DISPATCH MANAGER [address] [place] [address] [place] [address] Referral ID Status Reason Start Date Expiration Date V isits Requested Visits Authorized [id number] Closed Auto-Generate d Referral 12/29/2023 01/27/2025 1 1 Reason Comments Benign Prostatic Hypertrophy Specialty Diagnoses / Procedures [facility] Referred To Contact Urology Diagnoses Urinary retention Hydronephrosis, unspecified hydronephrosis type Procedures CONSULT TO UROLOGY OFFICE/OUTPATIENT [facility] 60 MINUTES Navin Ackerman MD [address] [place] [address] Referral ID Status Reason Start Date Expiration Date V isits Requested Visits Authorized [id number] Closed PCP Requested Referral 12/31/2023 12/30/2024 1 1 Reason Comments Follow Up Ultrasound follow up Reason Comments Follow Up Benign Prostatic Hypertrophy Specialty Diagnoses / Procedures Referred By Rajat t Referred To Contact Urology Diagnoses Urinary retention Hydronephrosis, unspecified hydronephrosis type Procedures CONSULT TO UROLOGY OFFICE/OUTPATIENT NEW [facility] 60 MINUTES Navin Ackerman MD [address] [place] [address] Reason Comments Follow Up Discharged from [facility] 01/22/2024 Reason Comments Insurance Authorization Reason Comments Social Work Services Reason Comments Med Change Request Other Handicap placard Orders Reason Comments Orders Reason Comments Urinary Retention Established Patient Urinary retention / bladder scan Reason Comments Home Care Reason Comments Benign Prostatic Hypertrophy Urinary Retention BPH with incomplete bladder emptying Reason Comments home health calling Reason Comments Hospital F/U [facility] d/c 03/10/24 Reason Comments PT plan of care Reason Comments [facility]- verbal orders/medication issues Reason Comments Delay of care - verbal needed. Reason Comments home health requesting verbal order Reason Comments [facility] OT Plan of Care ST Order Request Reason Comments [facility]- low blood pressure Reason Comments Blood pressure reading Reason Comments Patient Update Refill Request Reason Comments Results Home Health Point of Care Results Reason Comments Hospital F/U Reason Comments Orders Patient Update Reason Comments Orders Appointment Reason Comments FYI-PT plan of care Reason Comments Urinary Retention Reason Comments [facility] [place] Change Orders Reason Comments [facility] update Reason Comments Nurse Visit Urinary Retention Reason Comments Cystoscopy-1 Trus Procedure Reason Comments Recheck 3 month follow up Reason Comments Surgery Scheduled Reason Onset Date Comments Refill Request 07/21/2023 Reason Comments Home Care MD to follow. Reason Comments Home Care Confirmation Call Reason Comments Home Care PT Evaluation/Orthos tatic Hypotension Specialty Diagnoses / Procedures Referred By Rajat dhillon Referred To Contact [facility] [address] [place] [address] Referral ID Status Reason Start Date Expiration Date Visits Re quested Visits Authorized [id number] 1 1 Reason Comments Home Care BP readings Reason Comments Home Care Request for WRAPPER DIPPER refe rral Reason Onset Date Comments Refill Request 08/16/2024 Reason Comments [facility] pharmacy r eferral Reason Comments Radio Gen RMP Specialty Diagnoses / Procedures Referred By Rajat t Referred To Contact XR IMAGING Diagnoses Pain in joint, multiple sites Procedures XR HAND GENERAL 3V PA/LAT/OBL BILAT X-RAY HAND MINIMUM [address] [place] [address] [place] [id number] [place] [address] Referral ID Status Reason Start Date Expiration Date V isits Requested Visits Authorized [id number] Closed Auto-Generate d Referral 09/30/2021 10/30/2022 1 1 Reason Onset Date Comments Refill Request 08/24/2024 Reason Comments Radiology XR Reason Comments Patient Update Home Care Reason Comments Patient Update Orders Reason Comments Post-Op Visit Care Teams (unrecognized sec tion and content) [employer] Programs Director Relationship Specialty Start Date End Date Navin Ackerman MD [address] [place] [address] PCP - General Family Practice 08/26/18 Groundwater Programs Director Relationship Specialty Start Date End Date Navin Ackerman MD [address] [place] [address] PCP - General Family Practice 08/26/18 [employer]water Programs Director Relationship Specialty Start Date End Date Navin Ackerman MD [address] [place] [address] PCP - General Family Practice 08/26/18 Groundwater Programs Director Relationship Specialty Start Date End Date Navin Ackerman MD [address] [place] [address] PCP - General Family Practice 08/26/18 Groundwater Programs Director Relationship Specialty Start Date End Date Navin Ackermna MD [address] [place] [address] PCP - General Family Practice 08/26/18 Groundwater Programs Director Relationship Specialty Start Date End Date Navin Ackerman MD [address] [place] [address] PCP - General Family Practice 08/26/18 Groundwater Programs Director Relationship Specialty Start Date End Date Navin Ackerman MD [address] [facility] [place] [address] PCP - General Family Practice 08/26/18 Groundwater Programs Director Relationship Specialty Start Date End Date Navin Ackerman MD [address] [facility] [place] [address] PCP - General Family Practice 08/26/18 Groundwater Programs Director Relationship Specialty Start Date End Date Navin Ackerman MD [address] [facility] [place] [address] PCP - General Family Practice 08/26/18 Groundwater Programs Director Relationship Specialty Start Date End Date Navin Ackerman MD [address] [facility] [place] [address] PCP - General Family Practice 08/26/18 Groundwater Programs Director Relationship Specialty Start Date End Date Navin Ackerman MD [address] [facility] [place] [address] PCP - General Family Practice 08/26/18 Groundwater Programs Director Relationship Specialty Start Date End Date Navin Ackerman MD [address] [facility] [place] [address] PCP - General Family Practice 08/26/18 Groundwater Programs Director Relationship Specialty Start Date End Date Navin Ackerman MD [address] [facility] [place] [address] PCP - General Family Practice 08/26/18 Groundwater Programs Director Relationship Specialty Start Date End Date Marbella Zaidi PA-C [address] [facility] [place] [address] PCP - General Family Practice 05/12/22 Groundwater Programs Director Relationship Specialty Start Date End Date Marbella Zaidi PA-C [address] [facility] [place] [address] PCP - General Family Practice 05/12/22 Groundwater Programs Director Relationship Specialty Start Date End Date Navin Ackerman MD [address] [facility] [place] [address] PCP - General Family Practice 08/26/18 05/11/22 Marbella Zaidi PA-C [address] [facility] [place] [address] PCP - General Family Practice 05/12/22 Groundwater Programs Director Relationship Specialty Start Date End Date Marbella Zaidi PA-C [address] [facility] [place] [address] PCP - General Family Practice 05/12/22 Groundwater Programs Director Relationship Specialty Start Date End Date Marbella Zaidi PA-C [address] [facility] [place] [address] PCP - General Family Practice 05/12/22 Groundwater Programs Director Relationship Specialty Start Date End Date Marbella Zaidi PA-C [address] [facility] [place] [address] PCP - General Family Practice 05/12/22 Groundwater Programs Director Relationship Specialty Start Date End Date Marbella Zaidi PA-C [address] [facility] [place] [address] PCP - General Family Practice 05/12/22 Groundwater Programs Director Relationship Specialty Start Date End Date Marbella Zaidi PA-C [address] [facility] [place] [address] PCP - General Family Medicine 05/12/22 Groundwater Programs Director Relationship Specialty Start Date End Date Marbella Zaidi PA-C [address] [facility] [place] [address] PCP - General Family Medicine 05/12/22 Groundwater Programs Director Relationship Specialty Start Date End Date Marbella Zaidi PA-C [address] [facility] [place] [address] PCP - General Family Medicine 05/12/22 Groundwater Programs Director Relationship Specialty Start Date End Date Marbella Zaidi PA-C [address] [facility] [place] [address] PCP - General Family Medicine 05/12/22 Groundwater Programs Director Relationship Specialty Start Date End Date Marbella Zaidi PA-C [address] [facility] [place] [address] PCP - General Family Medicine 05/12/22 Groundwater Programs Director Relationship Specialty Start Date End Date Marbella Zaidi PA-C [address] [facility] [place] [address] PCP - General Family Medicine 05/12/22 Groundwater Programs Director Relationship Specialty Start Date End Date Marbella Zaidi PA-C [address] [facility] [place] [address] PCP - General Family Medicine 05/12/22 Groundwater Programs Director Relationship Specialty Start Date End Date Mrabella Zaidi PA-C [address] [facility] [place] [address] PCP - General Family Medicine 05/12/22 Groundwater Programs Director Relationship Specialty Start Date End Date Marbella Zaidi PA-C [address] [facility] [place] [address] PCP - General Family Medicine 05/12/22 Groundwater Programs Director Relationship Specialty Start Date End Date Marbella Zaidi PA-C [address] [facility] [place] [address] PCP - General Family Medicine 05/12/22 Groundwater Programs Director Relationship Specialty Start Date End Date Marbella Zaidi PA-C [address] [facility] [place] [address] PCP - General Family Medicine 05/12/22 Groundwater Programs Director Relationship Specialty Start Date End Date Marbella Zaidi PA-C [address] [facility] [place] [address] PCP - General Family Medicine 05/12/22 Groundwater Programs Director Relationship Specialty Start Date End Date Marbella Zaidi PA-C [address] [facility] [place] [address] PCP - General Family Medicine 05/12/22 Groundwater Programs Director Relationship Specialty Start Date End Date Marbella Zaidi PA-C [address] [place] [address] PCP - General Family Medicine 05/12/22 Groundwater Programs Director Relationship Specialty Start Date End Date Marbella Zaidi PA-C [address] [place] [address] PCP - General Family Medicine 05/12/22 Groundwater Programs Director Relationship Specialty Start Date End Date Marbella Zaidi PA-C [address] [place] [address] PCP - General Family Medicine 05/12/22 Groundwater Programs Director Relationship Specialty Start Date End Date Marbella Zaidi PA-C [address] [place] [address] PCP - General Family Medicine 05/12/22 Groundwater Programs Director Relationship Specialty Start Date End Date Marbella Zaidi PA-C [address] [place] [address] PCP - General Family Medicine 05/12/22 Groundwater Programs Director Relationship Specialty Start Date End Date Marbella Zaidi PA-C [address] [place] [address] PCP - General Family Medicine 05/12/22 Groundwater Programs Director Relationship Specialty Start Date End Date Marbella Zaidi PA-C [address] [place] [address] PCP - General Family Medicine 05/12/22 Groundwater Programs Director Relationship Specialty Start Date End Date Marbella Zaidi PA-C [address] [place] [address] PCP - General Family Medicine 05/12/22 Groundwater Programs Director Relationship Specialty Start Date End Date Marbella Zaidi PA-C [address] [place] [address] PCP - General Family Medicine 05/12/22 Groundwater Programs Director Relationship Specialty Start Date End Date Marbella Zaidi PA-C [address] [place] [address] PCP - General Family Medicine 05/12/22 Groundwater Programs Director Relationship Specialty Start Date End Date Marbella Zaidi PA-C [address] [place] [address] PCP - General Family Medicine 05/12/22 Groundwater Programs Director Relationship Specialty Start Date End Date Marbella Zaidi PA-C [address] [place] [address] PCP - General Family Medicine 05/12/22 Groundwater Programs Director Relationship Specialty Start Date End Date Marbella Zaidi PA-C [address] [place] [address] PCP - General Family Medicine 05/12/22 Groundwater Programs Director Relationship Specialty Start Date End Date Marbella Zaidi PA-C [address] [place] [address] PCP - General Family Medicine 05/12/22 Groundwater Programs Director Relationship Specialty Start Date End Date Marbella Zaidi PA-C [address] [place] [address] PCP - General Family Medicine 05/12/22 Groundwater Programs Director Relationship Specialty Start Date End Date Marbella Zaidi PA-C [address] [facility] [place] [address] PCP - General Family Medicine 05/12/22 Groundwater Programs Director Relationship Specialty Start Date End Date Marbella Zaidi PA-C [address] [facility] [place] [address] PCP - General Family Medicine 05/12/22 Groundwater Programs Director Relationship Specialty Start Date End Date Marbella Zaidi PA-C [address] [facility] [place] [address] PCP - General Family Medicine 05/12/22 Groundwater Programs Director Relationship Specialty Start Date End Date Marbella Zaidi PA-C [address] [facility] [place] [address] PCP - General Family Medicine 05/12/22 Groundwater Programs Director Relationship Specialty Start Date End Date Marbella Zaidi PA-C [address] [facility] [place] [address] PCP - General Family Medicine 05/12/22 Groundwater Programs Director Relationship Specialty Start Date End Date Marbella Zaidi PA-C [address] [facility] [place] [address] PCP - General Family Medicine 05/12/22 Groundwater Programs Director Relationship Specialty Start Date End Date Marbella Zaidi PA-C [address] [facility] [place] [address] PCP - General Family Medicine 05/12/22 Groundwater Programs Director Relationship Specialty Start Date End Date Marbella Zaidi PA-C [address] [place] [address] PCP - General Family Medicine 05/12/22 Groundwater Programs Director Relationship Specialty Start Date End Date Marbella Zaidi PA-C [address] [place] [address] PCP - General Family Medicine 05/12/22 Groundwater Programs Director Relationship Specialty Start Date End Date Marbella Zaidi PA-C [address] [place] [address] PCP - General Family Medicine 05/12/22 Groundwater Programs Director Relationship Specialty Start Date End Date Marbella Zaidi PA-C [address] [place] [address] PCP - General Family Medicine 05/12/22 Groundwater Programs Director Relationship Specialty Start Date End Date Marbella Zaidi PA-C [address] [place] [address] PCP - General Family Medicine 05/12/22 Groundwater Programs Director Relationship Specialty Start Date End Date Marbella Zaidi PA-C [address] [place] [address] PCP - General Family Medicine 05/12/22 Groundwater Programs Director Relationship Specialty Start Date End Date Marbella Zaidi PA-C [address] [place] [address] PCP - General Family Medicine 05/12/22 Groundwater Programs Director Relationship Specialty Start Date End Date Marbella Zaidi PA-C [address] [place] [address] PCP - General Family Medicine 05/12/22 Groundwater Programs Director Relationship Specialty Start Date End Date Marbella Zaidi PA-C [address] [facility] [place] [address] PCP - General Family Medicine 05/12/22 Groundwater Programs Director Relationship Specialty Start Date End Date Marbella Zaidi PA-C [address] [facility] [place] [address] PCP - General Family Medicine 05/12/22 Groundwater Programs Director Relationship Specialty Start Date End Date Marbella Zaidi PA-C [address] [facility] [place] [address] PCP - General Family Medicine 05/12/22 Groundwater Programs Director Relationship Specialty Start Date End Date Marbella Zaidi PA-C [address] [facility] [place] [address] PCP - General Family Medicine 05/12/22 Groundwater Programs Director Relationship Specialty Start Date End Date Marbella Zaidi PA-C [address] [facility] [place] [address] PCP - General Family Medicine 05/12/22 Groundwater Programs Director Relationship Specialty Start Date End Date Marbella Zaidi PA-C [address] [facility] [place] [address] PCP - General Family Medicine 05/12/22 Groundwater Programs Director Relationship Specialty Start Date End Date Marbella Zaidi PA-C [address] [facility] [place] [address] PCP - General Family Medicine 05/12/22 Groundwater Programs Director Relationship Specialty Start Date End Date Marbella Zaidi PA-C [address] [facility] [place] [address] PCP - General Family Medicine 05/12/22 Groundwater Programs Director Relationship Specialty Start Date End Date Marbella Zaidi PA-C [address] [facility] [place] [address] PCP - General Family Medicine 05/12/22 Groundwater Programs Director Relationship Specialty Start Date End Date Marbella Zaidi PA-C [address] [facility] [place] [address] PCP - General Family Medicine 05/12/22 Groundwater Programs Director Relationship Specialty Start Date End Date Marblela Zaidi PA-C [address] [facility] [place] [address] PCP - General Family Medicine 05/12/22 Groundwater Programs Director Relationship Specialty Start Date End Date Marbella Zaidi PA-C [address] [facility] [place] [address] PCP - General Family Medicine 05/12/22 Groundwater Programs Director Relationship Specialty Start Date End Date Marbella Zaidi PA-C [address] [facility] [place] [address] PCP - General Family Medicine 05/12/22 Groundwater Programs Director Relationship Specialty Start Date End Date Marbella Zaidi PA-C [address] [facility] [place] [address] PCP - General Family Medicine 05/12/22 Groundwater Programs Director Relationship Specialty Start Date End Date Marbella Zaidi PA-C [address] [facility] [place] [address] PCP - General Family Medicine 05/12/22 Groundwater Programs Director Relationship Specialty Start Date End Date Marbella Zaidi PA-C [address] [facility] [place] [address] PCP - General Family Medicine 05/12/22 Groundwater Programs Director Relationship Specialty Start Date End Date Marbella Zaidi PA-C [address] [place] [address] PCP - General Family Medicine 05/12/22 Groundwater Programs Director Relationship Specialty Start Date End Date Marbella Zaidi PA-C [address] [place] [address] PCP - General Family Medicine 05/12/22 Groundwater Programs Director Relationship Specialty Start Date End Date Marbella Zaidi PA-C [address] [place] [address] PCP - General Family Medicine 05/12/22 Groundwater Programs Director Relationship Specialty Start Date End Date Marbella Zaidi PA-C [address] [place] [address] PCP - General Family Medicine 05/12/22 Groundwater Programs Director Relationship Specialty Start Date End Date Marbella Zaidi PA-C [address] [place] [address] PCP - General Family Medicine 05/12/22 Groundwater Programs Director Relationship Specialty Start Date End Date Marbella Zaidi PA-C [address] [place] [address] PCP - General Family Medicine 05/12/22 Groundwater Programs Director Relationship Specialty Start Date End Date Marbella Zaidi PA-C [address] [facility] [place] [address] PCP - General Family Medicine 05/12/22 Groundwater Programs Director Relationship Specialty Start Date End Date Marbella Zaidi PA-C [address] [facility] [place] [address] PCP - General Family Medicine 05/12/22 Groundwater Programs Director Relationship Specialty Start Date End Date Marbella Zaidi PA-C [address] [facility] [place] [address] PCP - General Family Medicine 05/12/22 Groundwater Programs Director Relationship Specialty Start Date End Date Marbella Zaidi PA-C [address] [facility] [place] [address] PCP - General Family Medicine 05/12/22 Groundwater Programs Director Relationship Specialty Start Date End Date Marbella Zaidi PA-C [address] [facility] [place] [address] PCP - General Family Medicine 05/12/22 Groundwater Programs Director Relationship Specialty Start Date End Date Marbella Zaidi PA-C [address] [facility] [place] [address] PCP - General Family Medicine 05/12/22 Groundwater Programs Director Relationship Specialty Start Date End Date Marbella Zaidi PA-C [address] [facility] [place] [address] PCP - General Family Medicine 05/12/22 Groundwater Programs Director Relationship Specialty Start Date End Date Marbella Zaidi PA-C [address] [facility] [place] [address] PCP - General Family Medicine 05/12/22 Groundwater Programs Director Relationship Specialty Start Date End Date Marbella Zaidi PA-C [address] [place] [address] PCP - General Family Medicine 05/12/22 Groundwater Programs Director Relationship Specialty Start Date End Date Marbella Zaidi PA-C [address] [place], [place] [address] PCP - General Family Medicine 05/12/22 Groundwater Programs Director Relationship Specialty Start Date End Date Marbella Zaidi PA-C [address] [place], [place] [address] PCP - General Family Medicine 05/12/22 Abena Beckford APRN.TRANSPORTATION DISPATCH MANAGER [address] [place] [address] Home Care Provider Family Medicine 07/26/24 Vicente Quintana MD [address] [place] [address] [phone] Referring Urology 07/26/24 Eugene Uriarte, IMMANUEL [address] [place], [place] [id number] Varnish Finisher Post Acute Care 07/26/24 Groundwater Programs Director Relationship Specialty Start Date End Date Marbella Zaidi PA-C [address] [place] [address] PCP - General Family Medicine 05/12/22 Abena Beckford APRN.TRANSPORTATION DISPATCH MANAGER [address] [place] [address] Home Care Provider Family Medicine 07/26/24 Vicente Quintana MD [address] [place] [phone] Referring Urology 07/26/24 Eugene Uriarte, RN [address] [place] [address] Varnish Finisher Post Acute Care 07/26/24 Groundwater Programs Director Relationship Specialty Start Date End Date Marbella Zaidi PA-C [address] [place] [address] PCP - General Family Medicine 05/12/22 Abena Beckford, HIRAM.TRANSPORTATION DISPATCH MANAGER [address] [place] [address] Home Care Provider Family Medicine 07/26/24 Vicente Quintana MD [address] [place] [address] [phone] Referring Urology 07/26/24 Eugene Uriarte RN [address] [place], [place] [phone] Varnish Finisher Post Acute Care 07/26/24 Groundwater Programs Director Relationship Specialty Start Date End Date Marbella Zaidi PA-C [address] [place] [address] PCP - General Family Medicine 05/12/22 Abena Beckford, KITCHEN LEAD.TRANSPORTATION DISPATCH MANAGER [address] [place], [place] [address] Home Care Provider Family Medicine 07/26/24 [place] [address] [place] [address] [phone] Referring Urology 07/26/24 Eugene Uriarte RN [address] [place] [address] Varnish Finisher Post Acute Care 07/26/24 Groundwater Programs Director Relationship Specialty Start Date End Date Marbella Zaidi PA-C [address] [place] [address] PCP - General Family Medicine 05/12/22 Abena Beckford APRN.TRANSPORTATION DISPATCH MANAGER [address] [place] [address] Home Care Provider Family Medicine 07/26/24 Vicente Quintana MD [address] [place] [address] [phone] Referring Urology 07/26/24 Eugene Uriarte RN [address] [place] [address] Varnish Finisher Post Acute Care 07/26/24 Groundwater Programs Director Relationship Specialty Start Date End Date Marbella Zaidi PA-C [address] [place] [address] PCP - General Family Medicine 05/12/22 Abena Beckford APRN.TRANSPORTATION DISPATCH MANAGER [address] [place] [address] Home Care Provider Family Medicine 07/26/24 Vicente Quintana MD [address] [place] [address] [phone] Referring Urology 07/26/24 Eugene Uriarte RN [address] [place] [address] Varnish Finisher Post Acute Care 07/26/24 Groundwater Programs Director Relationship Specialty Start Date End Date Marbella Zaidi PA-C [address] [place] [address] PCP - General Family Medicine 05/12/22 Abena Beckford, HIRAM.TRANSPORTATION DISPATCH MANAGER [address] [place] [address] Home Care Provider Family Medicine 07/26/24 [place] [address] [place] [address] [phone] Referring Urology 07/26/24 Eugene Uriarte, IMMANUEL [address] [place] [address] Varnish Finisher Post Acute Care 07/26/24 Groundwater Programs Director Relationship Specialty Start Date End Date Marbella Zaidi PA-C [address] [place] [address] PCP - General Family Medicine 05/12/22 Abena Beckford, KITCHEN LEAD.TRANSPORTATION DISPATCH MANAGER [address] [place] [address] Home Care Provider Family Medicine 07/26/24 Vicente Quintana MD [address] [place] [address] [phone] Referring Urology 07/26/24 Eugene Uriarte RN [address] [place] [address] Varnish Finisher Post Acute Care 07/26/24 Groundwater Programs Director Relationship Specialty Start Date End Date Marbella Zaidi PA-C [address] [place] [address] PCP - General Family Medicine 05/12/22 Abena Beckford APRN.TRANSPORTATION DISPATCH MANAGER [address] [place] [address] Home Care Provider Family Medicine 07/26/24 Vicente Quintana MD [address] [place] [address] [phone] Referring Urology 07/26/24 Eugene Uriarte RN [address] [place], [place] [phone] Varnish Finisher Post Acute Care 07/26/24 Groundwater Programs Director Relationship Specialty Start Date End Date Marbella Zaidi PA-C [address] [place] [address] PCP - General Family Medicine 05/12/22 Abena Beckford APRN.TRANSPORTATION DISPATCH MANAGER [address] [place] [address] Home Care Provider Family Medicine 07/26/24 Vicente Quintana MD [address] [place] [address] [phone] Referring Urology 07/26/24 Eugene Uriarte RN [address] [place] [address] Varnish Finisher Post Acute Care 07/26/24 Groundwater Programs Director Relationship Specialty Start Date End Date Marbella Zaidi PA-C [address] [facility] [place] [address] PCP - General Family Medicine 05/12/22 Abena Beckford APRN.TRANSPORTATION DISPATCH MANAGER [address] [place] [address] Home Care Provider Family Medicine 07/26/24 Vicente Quintana MD [address] [place] [phone] Referring Urology 07/26/24 Eugene Uriarte RN [address] [place], [place] [phone] Varnish Finisher Post Acute Care 07/26/24 Groundwater Programs Director Relationship Specialty Start Date End Date Marbella Zaidi PA-C [address] [place] [address] PCP - General Family Medicine 05/12/22 Groundwater Programs Director Relationship Specialty Start Date End Date Marbella Zaidi PA-C [address] [place] [address] PCP - General Family Medicine 05/12/22 Abena Beckford, HIRAM.TRANSPORTATION DISPATCH MANAGER [address] [place] [address] Home Care Provider Family Medicine 07/26/24 Vicente Quintana MD [address] [place] [address] [phone] Referring Urology 07/26/24 Eugene Uriarte RN [address] [place] [address] Varnish Finisher Post Acute Care 07/26/24 Groundwater Programs Director Relationship Specialty Start Date End Date Marbella Zaidi PA-C [address] [place] [address] PCP - General Family Medicine 05/12/22 Abena Beckford, HIRAM.TRANSPORTATION DISPATCH MANAGER [address] [place] [address] Home Care Provider Family Medicine 07/26/24 Vicente Quintana MD [address] [place] [address] [phone] Referring Urology 07/26/24 Eugene Uriarte RN [address] [place] [address] Varnish Finisher Post Acute Care 07/26/24 Groundwater Programs Director Relationship Specialty Start Date End Date Marbella Zaidi PA-C [address] [place] [address] PCP - General Family Medicine 05/12/22 Abena Beckford APRN.TRANSPORTATION DISPATCH MANAGER [address] [place] [address] Home Care Provider Family Medicine 07/26/24 Vicente Quintana MD [address] [place] [address] [phone] Referring Urology 07/26/24 Eugene Uriarte RN [address] [place] [address] Varnish Finisher Post Acute Care 07/26/24 Groundwater Programs Director Relationship Specialty Start Date End Date Navin Ackerman MD [address] [place], [place] [address]361 PCP - General Family Medicine 08/26/18 05/11/22 Groundwater Programs Director Relationship Specialty Start Date End Date Marbella Zaidi PA-C [address] [place], [place] [address]2851 PCP - General Family Medicine 05/12/22 Abena Beckford APRN.TRANSPORTATION DISPATCH MANAGER [address] [place] [address] Home Care Provider Family Medicine 07/26/24 Vicente Quintana MD [address] [place] [phone] Referring Urology 07/26/24 Eugene Uriarte RN [address] [place] [address] Varnish Finisher Post Acute Care 07/26/24 Groundwater Programs Director Relationship Specialty Start Date End Date Navin Ackerman MD [address] [place] [address] PCP - General Family Medicine 08/26/18 05/11/22 Groundwater Programs Director Relationship Specialty Start Date End Date Navin Ackerman MD [address] [place] [address] PCP - General Family Medicine 08/26/18 05/11/22 Groundwater Programs Director Relationship Specialty Start Date End Date Marbella Zaidi PA-C [address] [place] [address] PCP - General Family Medicine 05/12/22 Abena Beckford APRN.TRANSPORTATION DISPATCH MANAGER [address] [place] [address] Home Care Provider Family Medicine 07/26/24 Vicente Quintana MD [address] [place] [address] [phone] Referring Urology 07/26/24 Eugene Uriarte RN [address] [place] [address] Varnish Finisher Post Acute Care 07/26/24 Inactive Administered Medications [...] BE BASED ON THE PRIMARY CLINICAL RECORDS. [employer] provides no warranty or guarantee of the accuracy or completeness of information in this document. Comprehensive CCD (C-CDA v2.1) Created on: September 12, 2024 Shukripatricebernard Mr. Miroslava Landa : 1950 Sex: Male Author Organization [facility] Care Team Providers Care Groundwater Programs Director Name Role Phone BLAS AUGUSTINE Unavailable NAVIN ACKERMAN Primary Care Unavailable Navin Ackerman MD Primary Care Provider [phone] Marbella Zaidi PA-C Primary Care Provider [phone] Navin Ackerman MD Primary Care Provider Marbella Zaidi PA-C Primary Care Provider [phone] Marbella Zaidi PA-C Primary Care Provider [phone] Marbella Zaidi PA-C Primary Care Provider [phone] HABBOUB, BROCK Admitting Unavailable KEVINUB, BROCK Attending Unavailable LUIS ANGEL SHER Referring Unavailable NAVIN ACKERMAN Primary Care Unavailable MARII MONTANA Referring Unavailable ZAIDI, M IGNACIO Primary Care Unavailable QUIN OKEEFE Admitting Unavailable GIANLUCA ABARCA Attending Unavailable JOSHUA CHRIS Consulting Unavailable STEVE JO Attending Unavailable NAVIN ACKERMAN Referring Unavailable NAVIN ACKERMAN Primary Care Unavailable ANDRA HOUGH Referring Unavailable ZAIDI, M IGNACIO Primary Care Unavailable PROVIDER, UNKNOWN Admitting Unavailable PROVIDER, UNKNOWN Attending Unavailable NAVIN ACKERMAN Primary Care Unavailable ZAIDI, M IGNACIO Primary Care Unavailable ANDRE, KAITLIN Admitting Unavailable ANDRE, KAITLIN Attending Unavailable MERHEFreeman THERESA Consulting Unavailable REMY LEMUS Attending Unavailable GUDELIA SAMUEL Referring Unavailable ZAIDI, M IGNACIO Primary Care Unavailable ZAIDI, M IGNACIO Referring Unavailable ZAIDI, M IGNACIO Primary Care Unavailable GUDELIA SAMUEL Referring Unavailable ZAIDI, M IGNACIO Primary Care Unavailable REMY LEMUS Attending Unavailable REMY LEMUS Referring Unavailable ZAIDI, M IGNACIO Primary Care Unavailable ZAIDI, M IGNACIO Primary Care Unavailable Marbella Zaidi PA-C Primary Care Provider [phone] Marcie KITCHEN LEAD.TRANSPORTATION DISPATCH MANAGER, Abena Unavailable Vicente Quintana MD Unavailable [phone] Eugene Uriarte RN Unavailable VICENTE QUINTANA Referring Unavail able VICENTE QUINTANA Attending Unavail able VICENTE QUINTANA Admitting Unavail able ZAIDI, M IGNACIO Primary Care Unavailable VICENTE QUINTANA Attending Unavail able ZAIDI, M IGNACIO Primary Care Unavailable VICENTE QUINTANA Referring Unavail able VICENTE QUINTANA Attending Unavail able ZAIDI, M IGNACIO Primary Care Unavailable ZAIDI, M IGNACIO Primary Care Unavailable GUDELIA SAMUEL Attending Unavailable Navin Ackerman MD Primary Care Provider ZAIDI, M IGNACIO Primary [...] Unavailable ZAIDI, M IGNACIO Primary Care Unavailable ABENA BECKFORD Referring Unavailable ZAIDI, M IGNACIO Referring Unavailable ZAIDI, M IGNACIO Primary Care Unavailable ZAIDI, M IGNACIO Attending Unavailable ZAIDI, M IGNACIO Primary Care Unavailable ABENA BECKFORD Referring Unavailable ABENA BECKFORD Attending Unavailable ZAIDI, M IGNACIO Primary Care Unavailable ZAIDI, M IGNACIO Primary Care Unavailable ZAIDI, M IGNACIO Referring Unavailable ZAIDI, M IGNACIO Primary Care Unavailable DANY GOMEZ Attending Unavailable NORMA CADET Attending Unavailable ZAIDI, M IGNACIO Primary Care Unavailable REMY LEMUS Referring Unavailable ZAIDI, M IGNACIO Primary Care Unavailable ZAIDI, M IGNACIO Primary Care Unavailable ABENA BECKFORD Attending Unavailable ZAIDI, M IGNACIO Primary Care Unavailable DENNIS MOORE Attending Unavailabl e ZAIDI, M IGNACIO Primary Care Unavailable CORRIE MARINELLI Attending Unavailable ZAIDI, M IGNACIO Primary Care Unavailable SUPPCORRIE PEREIRA Referring Unavailable ZAIDI, M IGNACIO Referring Unavailable ZAIDI, M IGNACIO Primary Care Unavailable BHARATHI WIGGINS Attending Unavailable ZAIDI, M IGNACIO Primary Care Unavailable ZAIDI, M IGNACIO Referring Unavailable ZAIDI, M IGNACIO Primary Care Unavailable BAHRATHI WIGGINS Attending Unavailable ZAIDI, M IGNACIO Referring Unavailable ZAIDI, M IGNACIO Primary Care Unavailable GUDELIA SAMUEL Referring Unavailable ZAIID, M IGNACIO Primary Care Unavailable GUDELIA SAMUEL Referring Unavailable ZAIDI, M IGNACIO Primary Care Unavailable DEMETRICE MARCIAL Referring Unavailable ZAIDI, M IGNACIO Primary Care Unavailable SASKIA SEARS Attending Unavailable Allergies Allergy Classification Reported Allergen(s) Allergy Type Date of Onset Reaction(s) Facility (20 sources) dilTIAZem; Translations: [DILTIAZEM HCL] Drug Allergy 03-04-20 11 Other: See Comments, Mental Status Change [facility] Work Phone: (20 sources) hydroCHLOROthiazide / Losartan; Translations: [LOSARTAN-HYDROCHLOROTH IAZIDE] Drug Allergy 03-04-20 11 Other: See Comments, Mental Status Change [facility] Work Phone: [phone] (20 sources) Metoprolol; Translations: [METOPROLOL TARTRATE] Drug Allergy 03-22-20 18 Other: See Comments, Intolerance [facility] Work Phone: [phone] (20 sources) valsartan; Translations: [VALSARTAN] Drug Allergy 09-29-20 10 GI Upset [facility] Work Phone: Medications Current Medications Medication [...] delayed release oral tablet (20 sources) Start: End: take 1 tablet by mouth twice daily at mealtime ferrous sulfate EC 324 mg (65 mg iron) TbEC Take 1 tablet by mouth two times a day with meals. 180 tablet 1 08/24/2024 Active Comment on above: Take 1 tablet by nichole th twice daily with meals. Take 1 tablet by nichole th two times a day with meals. gabapentin 300 mg oral capsule (20 sources) Anti-epileptic Agent Start: End: take 2 capsules by mouth three times [...] at bedtime. Take 1 capsule by [facility] daily at bedtime. menthol/camphor (BIOFREEZE TOPICAL) [...] Comment on above: Take 1 capsule by [facility] twice daily with meals for 7 days. Take 1 capsule by [facility] twice daily for 7 days. Take 1 capsule by [facility] two times a day with meals for 7 days. polyethylene glycol 3350 76464 mg powder for oral solution (20 sources) Osmotic Laxative Start: 11-16-20 End: 01-23-20 polyethylene glycol 3350 (MIRALAX, GLYCOLAX) 17 gram packet Take 1 Packet by mouth once daily for 7 doses. Dissolve dose in 4 - 8 ounces of liquid and take as directed. 7 Packet 0 01/15/2023 01/22/2023 Active Comment on above: Take 1 Packet by [facility] once daily. Dissolve dose in 4 - 8 ounces of liquid and take as directed. Take 1 Packet by nichole once daily for 7 doses. Dissolve dose [...] 90 tablet 1 08/24/2024 02/20/2025 Active sennosides, shelter 8.6 mg oral tablet (20 sources) Start: [...] Comment on above: Take 1 capsule by [facility] once daily. Take 1 tablet by [facility] twice daily as needed for constipation. sodium chloride 0.154 meq/ml irrigation solution (20 sources) Start: NaCl 0.9% irrigation solution sulfamethoxazole 800 mg / trimethoprim 160 mg oral tablet (1 source) Dihydrofolate Reductase Inhibitor Antibacterial, Sulfonamide Antimicrobial Start: End: sulfamethoxazole-tr imethoprim (BACTRIM DS) 800-160 mg per tablet Take by mouth twice daily. 0 05/03/2023 05/08/2023 Active Comment on above: Take by mouth twice daily. tamsulosin hydrochloride 0.4 mg oral capsule (20 sources) alpha-Adrenergic Eric Start: End: take 1 capsule by mouth once daily at bedtime tamsulosin (FLOMAX) 0.4 mg Indications: 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 , Overflow incontinence of urine Take 1 capsule by mouth daily at bedtime. 90 capsule 3 08/24/2024 Active Start: 11-19-2022 take 1 capsule by mo [facility] once daily at bedtime tamsulosin (FLOMAX) 0.4 mg Take 1 capsule by mouth daily at bedtime. 30 capsule 5 11/19/2022 Active Start: 05-12-2022 End: 11-13-2022 take 1 capsule by mouth once daily at bedtime tamsulosin (FLOMAX) 0.4 mg Take 1 capsule by mouth daily at bedtime. 30 capsule 5 05/12/2022 11/13/2022 Discontinued Comment on above: Take 1 capsule by mo [facility] daily at bedtime. 5000 mg testosterone 0.01 [...] sources) Serotonin Reuptake Inhibitor Start: 4 End: take 1 tablet by mouth once daily [...] on above: Take 2 tablets by [facility] every 6 hours as needed (mild [...] on above: Take 1 tablet by nichole every 6 hours as needed for pain for up to 7 days. Take 1 tablet by nichole every 8 hours as needed for pain for up to 7 days. amoxicillin 875 mg / clavulanate 125 mg oral tablet (6 sources) Penicillin-class Antibacterial Start: 02-19-2023 take 1 tablet by mouth twice daily amoxicillin-cla vulanic acid (AUGMENTIN) 875-125 mg per tablet Take 1 tablet by mouth twice daily. 14 tablet 0 02/19/2023 Active Start: 02-18-2023 take 1 tablet by nichole twice daily amoxicillin-clavulanic acid (AUGMENTIN) 875-125 mg per tablet Take 1 tablet by mouth twice daily. 14 tablet 0 02/18/2023 Active Comment on above: Take 1 tablet by nichole twice daily. docusate sodium 100 mg oral capsule (20 sources) Start: 2 End: 2 take 1 capsule by mouth twice daily docusate sodium (COLACE) 100 mg capsule Take 1 capsule by mouth twice daily. 20 capsule 03/22/2022 11/13/2022 Discontinued Comment on above: Take 1 capsule by [facility] twice daily. Take 1 capsule by [facility] twice daily as needed. lisinopril 20 mg [...] 1 tablet by nichole th once daily. meloxicam 15 mg oral tablet (9 sources) Nonsteroidal Anti-inflammatory Drug End: 05-07-20 23 take 1 tablet by mouth once daily [...] as needed. Take 1 tablet by nichole th twice daily as needed. multivit,thx,calcium,i jatinder,mins (MULTIVITAMIN AND MINERAL ORAL) (10 sources) End: [...] Start: 10-28-2020 take 1 tablet by nichole th once daily naproxen (NAPROSYN) 500 mg tablet [...] MG CAP) (20 sources) Start: 0 End: take 1 capsule by mouth once daily omega-3 fatty acids/vitamin e(FISH OIL 1,000 MG CAP) Take 1 capsule by mouth once daily. 0 07/31/2010 11/13/2022 Discontinued Start: 07-31-2010 take 1 capsule by mo [facility] once daily omega-3 fatty acids/vitamin e(FISH OIL [...] pain. June 29, 2023 phoned and advised march take 1-2 tramadol q6h prn Marbella Zaidi PA-C 28 tablet 06/29/2023 07/21/2023 Discontinued Comment on above: Take 1 tablet by nichole th every 6 hours as needed for pain. June 29, 2023 phoned and advised march take 1-2 tramadol q6h prn Marbella Zaidi [...] neoplasm] Episodic Other aftercare (1 source) Other superintendent terminal (current) drug therapy; Translations: [Medication management] Onset: [...] Results Test Name Value Interpretation Reference Range [facility] C[facility]N Normal [facility] CNOVon 08-22-2024 CNOV Normal [facility] CNPNon 08-17-2024 CNPN Normal [facility] CNPNon 08-09-2024 CNPN Normal [facility] CNPNon 08-02-2024 CNPN Normal [facility] 30on 08-01-2024 30 HNO ID: [id number] Author: MOLLY MARISCAL PTA Service: ? Author Type: Hogshead Mat Assembler Type: 30 Filed: 08/01/2024 15:49 Note Text: I sent todays BP reading to Abena Beckford per her request Normal [facility] CNPNon 08-01-2024 CNPN Normal [facility] CNPNon 07-30-2024 CNPN Normal [facility] CNPNon 07-28-2024 CNPN Normal [facility] CNCOon 07-27-2024 CNCO Letter Text Normal [facility] Basic metabolic 2000 panelon 07-26-2024 Anion gap [Moles/Vol] 10 mmol/L Normal 8-15 [facility] Comment on above: Order Comment: Speci men Type: BLOOD SPECIMENOrdering Facility: [facility] Address: [address] [place] [address] Performed By: #### 2 4321-2 ####[facility] LABORATORYCLIA [id number] [place] [address] [place] Calcium [Mass/Vol] 8.2 mg/dL Low 8.5-10.2 [facility] Comment on above: Order Comment: Speci men Type: BLOOD SPECIMENOrdering Facility: [facility] Address: [address] [place] [address] Performed By: #### 2 4321-2 ####[facility] LABORATORYCLIA [id number] [address] [place] Chloride [Moles/Vol] 102 mmol/L Normal 98-107 [facility] Comment on above: Order Comment: Speci men Type: BLOOD SPECIMENOrdering Facility: [facility] Address: [address] [place] [address] Performed By: #### 2 4321-2 ####[facility] LABORATORYCLIA [id number] [address] OF [place] CO2 [Moles/Vol] 23 mmol/L Normal 22-30 [facility] Comment on above: Order Comment: Speci men Type: BLOOD SPECIMENOrdering Facility: [facility] Address: [address] [place] [address] Performed By: #### 2 4321-2 ####[facility] LABORATORYCLIA [id number] [address] STATES OF [facility] Creatinine [Mass/Vol] 1.27 mg/dL High 0.73-1.22 [facility] Comment on above: Order Comment: Speci men Type: BLOOD SPECIMENOrdering Facility: [facility] Address: [address] [place] [address] Performed By: #### 2 4321-2 ####[facility] LABORATORYCLIA [id number] [address] Creatinine and Glomerular filtration rate.predicted panel (S/P/Bld) 59 mL/min/1.73m??? Low >=60 [facility] Comment on above: Order Comment: Speci men Type: BLOOD SPECIMENOrdering Facility: [facility] Address: [address] [place] [address] Result Comment: Kalani mated Glomerular Filtration Rate [...] actual GFR. Performed By: #### 2 4321-2 ####[facility] LABORATORYCLIA [id number] [place] [address] [place] Glucose [Mass/Vol] 86 mg/dL Normal 74-99 [facility] Comment on above: Order Comment: Speci men Type: BLOOD SPECIMENOrdering Facility: [facility] Address: [address] [place] [address] Result Comment: The [place] Diabetes Association (ADA) provides guidance for cutoff [...] Standards of Medical Care in Diabetes 2016, [place] [employer]. Diabetes Care. 2016.39(Suppl 1). Performed By: #### 2 4321-2 ####[facility] LABORATORYCLIA [id number] [place] [address] [place] Potassium [Moles/Vol] 3.9 mmol/L Normal 3.7-5.1 [facility] Comment on above: Order Comment: Fernanda franks Type: BLOOD SPECIMENOrdering Facility: [facility] Address: [address] [place] [address] Performed By: #### 2 4321-2 ####[facility] LABORATORYCLIA [id number] [place] [id number] [place] Sodium [Moles/Vol] 135 mmol/L Low 136-144 [facility] Comment on above: Order Comment: Speci men Type: BLOOD SPECIMENOrdering Facility: [facility] Address: [address] [place] [address] Performed By: #### 2 4321-2 ####[facility] LABORATORYCLIA [id number] [place] [address] [place] Urea nitrogen [Mass/Vol] 14 mg/dL Normal 9-24 [facility] Comment on above: Order Comment: Speci men Type: BLOOD SPECIMENOrdering Facility: [facility] Address: [address] [place] [address] Performed By: #### 2 4321-2 ####[facility] LABORATORYCLIA [id number] [place] [address] [place] CBC panel Auto (Bld)on 07-26 Erythrocyte distribution width (RBC) [Ratio] 15.1 % High 11.5-15.0 [facility] Comment on above: Order Comment: Speci men Type: BLOOD SPECIMENOrdering Facility: [facility] Address: [address] [place] [address] Performed By: #### 5 8410-2 ####[facility] LABORATORYCLIA [id number] [address] [place] Hematocrit (Bld) [Volume fraction] 35.5 % Low 39.0-51.0 [facility] Comment on above: Order Comment: Speci men Type: BLOOD SPECIMENOrdering Facility: [facility] Address: [address] [place] [address] Performed By: #### 5 8410-2 ####[facility] LABORATORYCLIA [id number] [address] [place] Hemoglobin (Bld) [Mass/Vol] 11.7 g/dL Low 13.0-17.0 [facility] Comment on above: Order Comment: Speci men Type: BLOOD SPECIMENOrdering Facility: [facility] Address: [address] [place] [address] Performed By: #### 5 8410-2 ####[facility] LABORATORYCLIA [id number] [place] [address] [place] MCH (RBC) [Entitic mass] 30.7 pg Normal 26.0-34.0 [facility] Comment on above: Order Comment: Speci men Type: BLOOD SPECIMENOrdering Facility: [facility] [facility] Address: [address] [place] [address] Performed By: #### 5 8410-2 ####[facility] LABORATORYCLIA [id number] [address] STATES [facility] MCHC (RBC) [Mass/Vol] 33.0 g/dL Normal 30.5-36.0 [facility] Comment on above: Order Comment: Speci men Type: BLOOD SPECIMENOrdering Facility: [facility] Address: [address] [place] [address] Performed By: #### 5 8410-2 ####[facility] LABORATORYCLIA [id number] [address] [place] MCV (RBC) [Entitic vol] 93.2 fL Normal 80.0-100.0 [facility] Comment on above: Order Comment: Speci men Type: BLOOD SPECIMENOrdering Facility: [facility] Address: [address] [place] [address] Performed By: #### 5 8410-2 ####[facility] LABORATORYCLIA [id number] [address] Nucleated RBC (Bld) [#/Vol] 10*3/uL Normal <0.01 [facility] Comment on above: Order Comment: Speci men Type: BLOOD SPECIMENOrdering Facility: [facility] Address: [address] [place] [address] Performed By: #### 5 8410-2 ####[facility] LABORATORYCLIA [id number] [address] STATES [facility] Platelet mean volume (Bld) [Entitic vol] 9.1 fL Normal 9.0-12.7 [facility] Comment on above: Order Comment: Speci men Type: BLOOD SPECIMENOrdering Facility: [facility] Address: [address] [place] [address] Performed By: #### 5 8410-2 ####[facility] LABORATORYCLIA [id number] [address] [place] Platelets (Bld) [#/Vol] 258 10*3/uL Normal 150-400 [facility] Comment on above: Order Comment: Speci men Type: BLOOD SPECIMENOrdering Facility: [facility] Address: [address] [place] [address] Performed By: #### 5 8410-2 ####[facility] LABORATORYCLIA [id number] [address] OF [facility] RBC (Bld) [#/Vol] 3.81 10*6/uL Low 4.20-6.00 [facility] Comment on above: Order Comment: Speci men Type: BLOOD SPECIMENOrdering Facility: [facility] Address: [address] [place] [address] Performed By: #### 5 8410-2 ####[facility] LABORATORYCLIA [id number] [address] WBC (Bld) [#/Vol] 8.88 10*3/uL Normal 3.70-11.00 [facility] Comment on above: Order Comment: Speci men Type: BLOOD SPECIMENOrdering Facility: [facility] Address: [address] [place] [address] Performed By: #### 5 8410-2 ####[facility] LABORATORYCLIA [id number] [address] CNDSon 07-26-2024 CNDS HNO ID: [id number] Author: VICENTE QUINTANA MD Service: Urology Author [...] medications BARD COUDE TIP CATHETER 16 Fr [facility] Generic drug: Catheter ISC 2-3 x per [...] Your Medications These medications were sent to [facility] [place] [address] - [address] [phone] [address] [place] [address] cephALEXin 500 mg capsule ciprofloxacin HCl 500 mg tablet FINAL DIAGNOSIS: BPH SIGNATURE: Malika Bedolla DO PATIENT NAME: Miroslava Peralta DATE: July 27, 2024 TIME: 10:46 AM Normal [facility] Bharath 07-26-2024 CRESENCIO Telephone (ALSTEVE) MIROSLAVA PERALTA ([id number]) 1950 [place] Date Time Provider Department 07/26/24 BEDOLLAMALIKA During your visit today, we recorded the [...] Encounter Status:Closed by MALIKA BEDOLLA on 08/08/24 [facility] CNPN Telephone (UROLAG) MIROSLAVA PERALTA ([id number]) 1950 M [place] Date Time Provider Department 07/26/24 VICENTE QUINTANA [...] Mechanical c (more content not included)... Normal [facility] CNPN Normal [facility] ANES POSTPROC EVALon 024 ANES POSTPROC EVAL HNO ID: [id number] Author: LUIS ANGEL MOELLER DO Service: Anesthesiology Author Type: Anesthesiologist Type: Anesthesia Postprocedure Evaluation Filed: 07/25/2024 16:37 Note Text: POST ANESTHESIA EVALUATION NOTE : 1950 Procedure Summary Date: 07/25/24 Room / Location: [place] OR / [place] OR Anesthesia Start: 1346 Anesthesia Stop: 1532 Procedures: TRANSURETHRAL WATERJET ABLATION OF PROSTATE INCLUDING [...] July 25, 2024 TIME: 4:36 PM CSN: [id number] [facility] ANES PRE-OPon 07-25-2024 ANES PRE-OP HNO ID: [id number] Author: LUIS ANGEL MOELLER DO Service: Anesthesiology [...] and consent discussed: yes. Patient / Responsible Democrat agrees to proceed: yes Patient / Surrogate [...] Miroslava Peralta DATE: July 25, 2024 TIME: 2:06 PM CSN: [id number] [facility] HISTORY PHYSICALon HISTORY PHYSICAL HNO ID: [id number] Author: VICENTE QUINTANA MD Service: Urology Author [...] SIGNATURE: Vicente Quintana MD PATIENT NAME: Miroslava Peralta DATE: July 25, 2024 TIME: 1:34 PM PAGER: [facility] OPERATIVE NOon 07-25-2024 OPERATIVE NO HNO ID: [id number] Author: VICENTE QUINTANA MD Service: Urology Author [...] of bladder calculi SURGEON: Vicente Quintana MD MARINE PHOTOGRAPHER: Loreta Canas MD ANESTHESIA: MAC + Spinal [...] size and note prostate anatomy. The 24 Jordanian AQUABEAM handpiece was inserted into the prostatic [...] ultrasound probe was then removed. A 24 Jordanian Simplastic 3-way hancock catheter was inserted, balloon [...] provide assi (more content not included)... Normal [facility] CNPNery 07-17-2024 [facility] Telephone (AKURFL) MIROSLAVA PERALTA ([id number]) 1950 [facility] Date Time Provider Department 07/17/24 VICENTE QUINTANA [...] [N39.490] 01/31/2024 (more content not included)... Normal [facility] CNPNon 07-14-2024 CNPN Normal [facility] CNPNon 07-11-2024 CNPN Telephone (AKURFL) MIROSLAVA PERALTA ([id number]) 1950 [place] Date Time Provider Department 07/11/24 VICENTE QUINTANA During your visit today, we recorded the following information about you: Norma Porter 07/11/2024 3:48 PM Addendum Pt is scheduled for Cysto, Aquablation, hancock with Dr Quintana at [facility] on 07/25/24 @ 2:00 (12:00 arrival). [...] Encounter Number: (more content not included)... Normal [facility] B2 Microglob SerPl-mCncon Tpym-0-Aiixocgqgwl in [Mass/Vol] 2.9 ug/mL Normal <3.1 [facility] Comment on above: Order Comment: Speci men Type: BLOOD SPECIMENOrdering Facility: [facility] Address: [address] [place] [address] Result Comment: Beta -2 Microglobulin test is performed using the [employer] immunoturbidimetric method. Results obtained with different methods or kits cannot be used interchangeably. Performed By: #### 1 952-1, 2885-2, 00056-8, 2532-0 ####[facility] LABCLIA [id number] [place] [address] [place] Bacteria Ur Culton Bacteria identified Cx Nom (U) Abnormal [facility] Comment on above: Performed By: #### 6 30-4 ####[facility] LABCLIA [id number] [place] [address] [place] CBC W Auto Differential pane l (Bld)on 07-10-2024 Basophils (Bld) [#/Vol] 0.09 10*3/uL Normal <0.11 [facility] Comment on above: Order Comment: Speci men Type: BLOOD SPECIMENOrdering Facility: [facility] Address: [address] [place] [address] Performed By: #### 5 7021-8 ####[facility] LABCLIA [id number] [place] [address] [place] Basophils/100 WBC (Bld) 1.0 % Normal [facility] Comment on above: Order Comment: Speci men Type: BLOOD SPECIMENOrdering Facility: [facility] Address: [address] [place] [address] Performed By: #### 5 7021-8 ####[facility] LABCLIA [id number] [place] [address] [place] Differential cell count method Nom (Bld) Auto Normal [facility] Comment on above: Order Comment: Speci men Type: BLOOD SPECIMENOrdering Facility: [facility] Address: [address] [place] [address] Performed By: #### 5 7021-8 ####[facility] LABCLIA [id number] [place] [address] [place] Eosinophils (Bld) [#/Vol] 0.35 10*3/uL Normal <0.46 [facility] Comment on above: Order Comment: Speci men Type: BLOOD SPECIMENOrdering Facility: [facility] Address: [address] [place] [address] Performed By: #### 5 7021-8 ####[facility] LABCLIA [id number] [place] [address] [place] Eosinophils/100 WBC (Bld) 3.8 % Normal [facility] Comment on above: Order Comment: Speci men Type: BLOOD SPECIMENOrdering Facility: [facility] Address: [address] [place] [address] Performed By: #### 5 7021-8 ####[facility] LABCLIA [id number] [place] [address] [place] Erythrocyte distribution width (RBC) [Ratio] 15.2 % High 11.5-15.0 [facility] Comment on above: Order Comment: Speci men Type: BLOOD SPECIMENOrdering Facility: [facility] Address: [address] [place] [address] Performed By: #### 5 7021-8 ####[facility] LABIA [id number] [place] [address] [place] Hematocrit (Bld) [Volume fraction] 40.5 % Normal 39.0-51.0 [facility] Comment on above: Order Comment: Speci men Type: BLOOD SPECIMENOrdering Facility: [facility] Address: [address] [place] [address] Performed By: #### 5 7021-8 ####[facility] LABIA [id number] [place] [address] [place] Hemoglobin (Bld) [Mass/Vol] 13.0 g/dL Normal 13.0-17.0 [facility] Comment on above: Order Comment: Speci men Type: BLOOD SPECIMENOrdering Facility: [facility] Address: [address] [place] [address] Performed By: #### 5 7021-8 ####[facility] LABCLIA [id number] [place] [address] [place] Immature granulocytes (Bld) [#/Vol] 0.03 10*3/uL Normal <0.10 [facility] Comment on above: Order Comment: Speci men Type: BLOOD SPECIMENOrdering Facility: [facility] Address: [facility] [place] [address] Performed By: #### 5 7021-8 ####[facility] LABCLIA [id number] [place] [address] [place] Immature granulocytes/100 WBC (Bld) 0.3 % Normal [facility] Comment on above: Order Comment: Speci men Type: BLOOD SPECIMENOrdering Facility: [facility] Address: [address] [place] [address] Performed By: #### 5 7021-8 ####[facility] LABCLIA [id number] [place] [address] [place] Lymphocytes (Bld) [#/Vol] 1.44 10*3/uL Normal 1.00-4.00 [facility] Comment on above: Order Comment: Speci men Type: BLOOD SPECIMENOrdering Facility: [facility] Address: [address] [place] [address] Performed By: #### 5 7021-8 ####[facility] LABCLIA [id number] [place] [address] [place] Lymphocytes/100 WBC (Bld) 15.6 % Normal [facility] Comment on above: Order Comment: Speci men Type: BLOOD SPECIMENOrdering Facility: [facility] Address: [address] [place] [address] Performed By: #### 5 7021-8 ####[facility] LABCLIA [id number] [place] [address] [place] MCH (RBC) [Entitic mass] 29.9 pg Normal 26.0-34.0 [facility] Comment on above: Order Comment: Speci men Type: BLOOD SPECIMENOrdering Facility: [facility] Address: [address] [place] [address] Performed By: #### 5 7021-8 ####[facility] LABCLIA [id number] [place] [address] [place] MCHC (RBC) [Mass/Vol] 32.1 g/dL Normal 30.5-36.0 [facility] Comment on above: Order Comment: Speci men Type: BLOOD SPECIMENOrdering Facility: [facility] Address: [address] [place] [address] Performed By: #### 5 7021-8 ####[facility] LABCLIA [id number] [place] [address] [place] MCV (RBC) [Entitic vol] 93.1 fL Normal 80.0-100.0 [facility] Comment on above: Order Comment: Speci men Type: BLOOD SPECIMENOrdering Facility: [facility] Address: [address] [place] [address] Performed By: #### 5 7021-8 ####[facility] LABIA [id number] [place] [address] [place] Monocytes (Bld) [#/Vol] 0.94 10*3/uL High <0.87 [facility] Comment on above: Order Comment: Speci men Type: BLOOD SPECIMENOrdering Facility: [facility] Address: [address] [place] [address] Performed By: #### 5 7021-8 ####[facility] LABCLIA [id number] [place] [address] [place] Monocytes/100 WBC (Bld) 10.2 % Normal [facility] Comment on above: Order Comment: Speci men Type: BLOOD SPECIMENOrdering Facility: [facility] Address: [address] [place] [address] Performed By: #### 5 7021-8 ####[facility] LABCLIA [id number] [place] [address] [place] Neutrophils (Bld) [#/Vol] 6.39 10*3/uL Normal 1.45-7.50 [facility] Comment on above: Order Comment: Speci men Type: BLOOD SPECIMENOrdering Facility: [facility] Address: [address] [place] [address] Performed By: #### 5 7021-8 ####[facility] LABCLIA [id number] [place] [address] [place] Neutrophils/100 WBC (Bld) 69.1 % Normal [facility] Comment on above: Order Comment: Speci men Type: BLOOD SPECIMENOrdering Facility: [facility] Address: [address] [place] [address] Performed By: #### 5 7021-8 ####[facility] LABCLIA [id number] [place] [address] [place] Nucleated RBC (Bld) [#/Vol] 10*3/uL Normal <0.01 [facility] Comment on above: Order Comment: Speci men Type: BLOOD SPECIMENOrdering Facility: [facility] Address: [address] [place] [address] Performed By: #### 5 7021-8 ####[facility] LABCLIA [id number] [place] [address] [place] Nucleated RBC/100 WBC (Bld) [Ratio] 0.0 /100 WBC Normal [facility] Comment on above: Order Comment: Speci men Type: BLOOD SPECIMENOrdering Facility: [facility] Address: [address] [place] [address] Performed By: #### 5 7021-8 ####[facility] LABIA [id number] [place] [address] [place] Platelet mean volume (Bld) [Entitic vol] 9.8 fL Normal 9.0-12.7 [facility] Comment on above: Order Comment: Speci men Type: BLOOD SPECIMENOrdering Facility: [facility] Address: [address] [place] [address] Performed By: #### 5 7021-8 ####[facility] LABIA [id number] [place] [address] [place] Platelets (Bld) [#/Vol] 310 10*3/uL Normal 150-400 [facility] Comment on above: Order Comment: Speci men Type: BLOOD SPECIMENOrdering Facility: [facility] Address: [address] [place] [address] Performed By: #### 5 7021-8 ####[facility] LABIA [id number] [place] [address] [place] RBC (Bld) [#/Vol] 4.35 10*6/uL Normal 4.20-6.00 [facility] Comment on above: Order Comment: Speci men Type: BLOOD SPECIMENOrdering Facility: [facility] Address: [address] [place] [address] Performed By: #### 5 7021-8 ####[facility] LABIA [id number] [place] [address] [place] WBC (Bld) [#/Vol] 9.24 10*3/uL Normal 3.70-11.00 [facility] Comment on above: Order Comment: Speci men Type: BLOOD SPECIMENOrdering Facility: [facility] Address: [address] [place] [address] Performed By: #### 5 7021-8 ####[facility] LABIA [id number] [place] [address] [place] CNOVon 07-10-2024 CNOV Normal [facility] CNOV Office Visit (AKURFL ) MIROSLAVA PERALTA ([id number]) 1950 [place] Date Time Provider Department 07/10/24 10:45 AM VICENTE QUINTANA During your visit today, [...] Date Value 12/28/2023 Negative 01/05/2019 Negative Specific [place], Ur (no units) Date Value 12/28/2023 1.013 [...] , LWK , LUSUL in the last 34078 hours. REVIEW OF SYSTEMS Review of Systems [...] Quit date: (more content not included)... Normal [facility] CNOV Office Visit (AKURFL ) MIROSLAVA PERALTA ([id number]) 1950 M [facility]* Date Time Provider Department 07/10/24 10:30 AM [...] patient: Yes Procedure confirmed with physician and behavior support specialist: Yes UNIVERSAL PROTOCOL / SAFETY CHECKLIST Procedure [...] Shelby Lyons MA 07/10/2024 10:41 AM Signed Coverstitch Binder present: Shelby Lyons MA Referring Provider: VICENTE QUINTANA [[id number]] Allergies As of Date: 07/10/2024 Noted Allergy [...] retention [R33.9] Hydronephrosis, unspecified hydronephrosis type [N13.30] Order(s): CYSTO/TRUS (POC) GUKI USE ONLY [1570703] Order #: [id number]: 1 lidocaine urojet 2 % 6 mL [...] mouth t (more content not included)... Normal [facility] Comprehensive metabolic 2000 panelon 07-10-2024 Albumin [Mass/Vol] 3.8 g/dL Low 3.9-4.9 [facility] Comment on above: Order Comment: Speci men Type: BLOOD SPECIMENOrdering Facility: [facility] Address: [address] [place] [address] Performed By: #### 1 952-1, 2885-2, 59746-5, 2532-0 ####[facility] LABCLIA [id number] [place] [address] [place] ALP [Catalytic activity/Vol] 68 U/L Normal 38-113 [facility] Comment on above: Order Comment: Speci men Type: BLOOD SPECIMENOrdering Facility: [facility] Address: [address] [place] [address] Performed By: #### 1 952-1, 2885-2, 77956-5, 2532-0 ####[facility] LABCLIA [id number] [place] [address] [place] ALT [Catalytic activity/Vol] 11 U/L Normal 10-54 [facility] Comment on above: Order Comment: Speci men Type: BLOOD SPECIMENOrdering Facility: [facility] Address: [address] [place] [address] Performed By: #### 1 952-1, 2885-2, 69700-0, 2532-0 ####[facility] LABCLIA [id number] [place] [address] [place] Anion gap [Moles/Vol] 12 mmol/L Normal 8-15 [facility] Comment on above: Order Comment: Speci men Type: BLOOD SPECIMENOrdering Facility: [facility] Address: [address] [place] [address] Performed By: #### 1 952-1, 2885-2, 30292-1, 2532-0 ####[facility] LABCLIA [id number] [place] [id number] [place] AST [Catalytic activity/Vol] 9 U/L Low 14-40 [facility] Comment on above: Order Comment: Speci men Type: BLOOD SPECIMENOrdering Facility: [facility] Address: [address] [place] [address] Performed By: #### 1 952-1, 2885-2, 83612-5, 2532-0 ####[facility] LABCLIA [id number] [place] [address] [place] Bilirubin [Mass/Vol] mg/dL Low 0.2-1.3 [facility] Comment on above: Order Comment: Speci men Type: BLOOD SPECIMENOrdering Facility: [facility] Address: [address] [place] [address] Performed By: #### 1 952-1, 2885-2, 27948-2, 2532-0 ####[facility] LABCLIA [id number] [place] [address] [place] Calcium [Mass/Vol] 9.3 mg/dL Normal 8.5-10.2 [facility] Comment on above: Order Comment: Speci men Type: BLOOD SPECIMENOrdering Facility: [facility] Address: [address] [place] [address] Performed By: #### 1 952-1, 2885-2, 68275-8, 2-0 ####[facility] LABCLIA [id number] [place] [address] [place] Chloride [Moles/Vol] 103 mmol/L Normal 98-107 [facility] Comment on above: Order Comment: Speci men Type: BLOOD SPECIMENOrdering Facility: [facility] Address: [address] [place] [address] Performed By: #### 1 952-1, 2885-2, 50881-0, 2532-0 ####[facility] LABCLIA [id number] [place] [id number] [place] CO2 [Moles/Vol] 23 mmol/L Normal 22-30 [facility] Comment on above: Order Comment: Speci men Type: BLOOD SPECIMENOrdering Facility: [facility] Address: [address] [place], [place] [address] Performed By: #### 1 952-1, 2885-2, 89693-1, 253-0 ####[facility] LABCLIA [id number] [place] [address] [place] Creatinine [Mass/Vol] 1.40 mg/dL High 0.73-1.22 [facility] Comment on above: Order Comment: Speci men Type: BLOOD SPECIMENOrdering Facility: [facility] Address: [address] [place] [address] Performed By: #### 1 952-1, 2885-2, 68206-5, 2531-0 ####[facility] LABCLIA [id number] [place] [address] [place] Creatinine and Glomerular filtration rate.predicted panel (S/P/Bld) 53 mL/min/1.73m??? Low >=60 [facility] Comment on above: Order Comment: Fernanda franks Type: BLOOD SPECIMENOrdering Facility: [facility] Address: [address] [place] [address] Result Comment: Kalani mated Glomerular Filtration Rate [...] GFR. Performed By: #### 1 952-1, 2885-2, 24764-9, 2532-0 ####[facility] LABCLIA [id number] [place] [id number] [place] Glucose [Mass/Vol] 194 mg/dL High 74-99 [facility] Comment on above: Order Comment: Speci men Type: BLOOD SPECIMENOrdering Facility: [facility] Address: [address] [place] [id number] Result Comment: The [place] [employer] (ADA) provides guidance for cutoff [...] Standards of Medical Care in Diabetes 2016, [place] [employer]. Diabetes Care. 2016.39(Suppl 1). Performed By: #### 1 952-1, 2885-2, 84421-7, 2531-0 ####[facility] LABCLIA [id number] [place] [address] [place] Potassium [Moles/Vol] 4.4 mmol/L Normal 3.7-5.1 [facility] Comment on above: Order Comment: Speci men Type: BLOOD SPECIMENOrdering Facility: [facility] Address: [address] [place] [address] Performed By: #### 1 952-1, 2885-2, , 2531-0 ####[facility] LABIA [id number] [place] [address] [place] Sodium [Moles/Vol] 138 mmol/L Normal 136-144 [facility] Comment on above: Order Comment: Speci men Type: BLOOD SPECIMENOrdering Facility: [facility] Address: [address] [place] [id number] Performed By: #### 1 952-1, 2885-2, 26256-9, 2531-0 ####[facility] LABCLIA [id number] [address] [address] [place] Urea nitrogen [Mass/Vol] 26 mg/dL High 9-24 [facility] Comment on above: Order Comment: Speci men Type: BLOOD SPECIMENOrdering Facility: [facility] Address: [address] [place] [address] Performed By: #### 1 952-1, 2885-2, 97845-7, 2532-0 ####[facility] LABCLIA [id number] [address] [place] IMMUNOFIXATION SCREEN, SERUM on 07-10-2024 INTERPRETATION (MPA) Atypical restricted bands are present in the IgM and kappa regions. Consistent with IgM kappa monoclonal gammopathy. Normal [facility] Comment on above: Order Comment: Speci men Type: BLOOD SPECIMENOrdering Facility: [facility] Address: [address] [place] [address] Performed By: #### I FES ####[facility] LABCLIA [id number] [place] [address] [place] MPA RESULT M protein is present. Abnormal No M p rotein is identified. [facility] Comment on above: Order Comment: Speci men Type: BLOOD SPECIMENOrdering Facility: [facility] [facility] Address: [address] [place] [address] Performed By: #### I FES ####[facility] LABCLIA [id number] [address] [place] STAFF REVIEW (MPA) Reviewed by Brenden gerber M.D. Normal [facility] Comment on above: Order Comment: Speci men Type: BLOOD SPECIMENOrdering Facility: [facility] Address: [address] [place] [address] Performed By: #### I FESC ####[facility] LABCLIA [id number] [place] [id number] [place] IMMUNOGLOBULINS,IGG,IGA,IGMo n 07-10-2024 IgA [Mass/Vol] 147 mg/dL Normal 70-400 [facility] Comment on above: Order Comment: Speci men Type: BLOOD SPECIMENOrdering Facility: [facility] Address: [address] [place] [address] Performed By: #### S ERIMM ####[facility] LABCLIA [id number] [place] [address] [place] IgG [Mass/Vol] 1283 mg/dL Normal 700-1600 [facility] Comment on above: Order Comment: Speci men Type: BLOOD SPECIMENOrdering Facility: [facility] Address: [address] [place] [address] Performed By: #### S ERIMM ####[facility] LABCLIA [id number] [place] [address] [place] IgM [Mass/Vol] 214 mg/dL Normal 40-230 [facility] Comment on above: Order Comment: Speci men Type: BLOOD SPECIMENOrdering Facility: [facility] Address: [address] [place] [address] Performed By: #### S ERIMM ####[facility] LABCLIA [id number] [place] [address] [place] KAPPA/JARAMILLO,FREE,SERon 2023 Immunoglobulin light chains.kappa.free (S) [Mass/Vol] 34.8 mg/L High 3.3-19.4 [facility] Comment on above: Order Comment: Speci men Type: BLOOD SPECIMENOrdering Facility: [facility] Address: [address] [place] [address] Result Comment: Rare ly, increased serum free light chains levels may not be detected or accurately quantified due to prozone phenomenon or in high viscosity samples using this immunoturbidimetric assay. Correlation with other laboratory results and clinical findings is recommended.The [place] Free Light Chain was performed using the Binding Site Optilite immunoturbidimetric method. Result obtained with different assay methods or kits cannot be used interchangeably. Performed By: #### K LFRS ####[facility] LABCLIA [id number] [place] [address] [place] Immunoglobulin light chains.kappa/Immun oglobulin light chains.lambda (S) [Mass ratio] 1.85 High 0.26-1.65 [facility] Comment on above: Order Comment: Speci men Type: BLOOD SPECIMENOrdering Facility: [facility] Address: [address] [place] [address] Performed By: #### K LFRS ####[facility] LABCLIA [id number] [place] [address] [place] Immunoglobulin light chains.lambda.free [Mass/Vol] 18.8 mg/L Normal 5.7-26.3 [facility] Comment on above: Order Comment: Speci men Type: BLOOD SPECIMENOrdering Facility: [facility] Address: [address] [place] [address] Result Comment: Rare ly, increased serum free [...] used interchangeably. Performed By: #### K LFRS ####[facility] LABCLIA [id number] [place] [address] [place] LDH SerPl-cCncon 07-10-2024 LDH [Catalytic activity/Vol] 167 U/L Normal 135-225 [facility] Comment on above: Order Comment: Speci men Type: BLOOD SPECIMENOrdering Facility: [facility] Address: [address] [place] [address] Performed By: #### 1 952-1, 2885-2, 23085-4, 2532-0 ####[facility] LABCLIA [id number] [place] [address] [place] PROTEIN ELECTROPHORESIS SERU M (P)on 07-10-2024 Albumin [Mass/Vol] 3.53 g/dL Normal 3.43-5.41 [facility] Comment on above: Order Comment: Speci men Type: BLOOD SPECIMENOrdering Facility: [facility] Address: [address] [place] [address] Performed By: #### L [id number] ####[facility] LABCLIA [id number] [place] [address] [place] Alpha 1 globulin Elph [Mass/Vol] 0.33 g/dL Normal 0.18-0.43 [facility] Comment on above: Order Comment: Speci men Type: BLOOD SPECIMENOrdering Facility: [facility] Address: [address] [place] [address] Performed By: #### L [id number] ####[facility] LABIA [id number] [place] [address] [place] Alpha 2 globulin Elph [Mass/Vol] 0.83 g/dL Normal 0.42-0.98 [facility] Comment on above: Order Comment: Speci men Type: BLOOD SPECIMENOrdering Facility: [facility] Address: [address] [place] [address] Performed By: #### L [id number] ####[facility] LABIA [id number] [place] [address] [place] Beta globulin Elph [Mass/Vol] 0.73 g/dL Normal 0.61-1.17 [facility] Comment on above: Order Comment: Speci men Type: BLOOD SPECIMENOrdering Facility: [facility] Address: [address] [place] [address] Performed By: #### L [id number] ####[facility] LABCLIA [id number] [place] [address] [place] Gamma globulin Elph [Mass/Vol] 1.19 g/dL Normal 0.53-1.51 [facility] Comment on above: Order Comment: Speci men Type: BLOOD SPECIMENOrdering Facility: [facility] Address: [address] [place] [address] Performed By: #### L [id number] ####[facility] LABCLIA [id number] [place] [address] [place] INTERPRETATION COMMENT FOR PROTEIN ELECTROPHORESIS Normal [facility] Comment on above: Order Comment: Speci men Type: BLOOD SPECIMENOrdering Facility: [facility] Address: [address] [place] [address] Performed By: #### L [id number] ####[facility] LABCLIA [id number] [address] [place] M-PROTEIN LOCATION Normal [facility] Comment on above: Order Comment: Speci men Type: BLOOD SPECIMENOrdering Facility: [facility] Address: [address] [place] [address] Result Comment: Not Applicable. Performed By: #### L [id number] ####[facility] LABCLIA [id number] [place] [address] [place] Protein Fractions [Interp] An atypical region of restricted mobility is identified on protein electrophoresis. Abnormal No definitive M protein is identified on protein electrophores is. [facility] Comment on above: Order Comment: Speci men Type: BLOOD SPECIMENOrdering Facility: [facility] Address: [address] [place] [address] Performed By: #### L [id number] ####[facility] LABCLIA [id number] [address] [place] Protein.monoclonal Elph [Mass/Vol] 0.00 g/dL Normal <=0.00 [facility] Comment on above: Order Comment: Speci men Type: BLOOD SPECIMENOrdering Facility: [facility] Address: [address] [place] [address] Performed By: #### L [id number] ####[facility] LABCLIA [id number] [place] [address] [place] SPE STAFF REVIEW Reviewed by Brenden gerber M.D. Normal [facility] Comment on above: Order Comment: Speci men Type: BLOOD SPECIMENOrdering Facility: [facility] Address: [address] [place] [address] Performed By: #### L [id number] ####[facility] LABCLIA [id number] [place] [id number] [place] Prot SerPl-mCncon 07-10-2024 Protein [Mass/Vol] 6.6 g/dL Normal 6.3-8.0 [facility] Comment on above: Order Comment: Speci men Type: BLOOD SPECIMENOrdering Facility: [facility] Address: [address] [place] [address] Performed By: #### 1 952-1, 2885-2, 99115-7, 2532-0 ####[facility] LABCLIA [id number] [place] [address] [place] CNNURSEon 07-04-2024 CNNURSE Normal [facility] CNPNon 06-21-2024 CNPN Normal [facility] CNOVon 05-30-2024 CNOV Normal [facility] US CAROTID ARTERIES [facility] LABon 04-28-2024 US CAROTID [facility]ER[facility] Normal [facility] CNPNon 04-25-2024 CNPN Normal [facility] CNPNon 04-21-2024 CNPN Normal [facility] CNOVon 04-19-2024 CNOV Normal [facility] CNPNon 04-19-2024 CNPN Normal [facility] CNPNon 04-14-2024 CNPN Normal [facility] CNPNon 04-12-2024 CNPN Normal [facility] CNOVon 04-10-2024 CNOV Normal [facility] CNPNon 04-05-2024 CNPN Normal [facility] CNPNon 04-04-2024 CNPN Normal [facility] CNPNon 03-23-2024 CNPN Normal [facility] CNPNon 03-21-2024 CNPN Normal [facility] CNPNon 03-20-2024 CNPN Normal [facility] CNPNon 03-17-2024 CNPN Normal [facility] CNPNon 03-16-2024 CNPN Normal [facility] CNPNon 03-15-2024 CNPN Normal [facility] ACETYLCHOLINE RECEPTOR MODUL ATING ANTIBODYon 03-13-2024 ACETYLCHOLINE RECEPT/MODULATING 0 % Normal <=45 [facility] Comment on above: Order Comment: Speci men Type: BLOOD SPECIMENOrdering Facility: [facility] Address: [address] [place] [address] Result Comment: INTE RPRETIVE INFORMATION: Acetylcholine Modulating [...] was developed and its performance characteristicsdetermined by [facility]. It has not been cleared orapproved by the [place] Food and Drug Administration. This test wasperformed in a CLIA certified laboratory and is intended forclinical purposes.Performed By: [facility] [place], [place] [address]Jtfrvktiya Director: Joshua Mota MD, PhDCLIA Number: [id number] Performed By: #### A CEMOD ####[facility] LABORATORIESCLIA [id number] [place] [address] CBC W Auto Differential pane l (Bld)on 03-13-2024 Basophils (Bld) [#/Vol] 0.09 10*3/uL [facility] Basophils/100 WBC (Bld) 1.3 % [facility] Differential cell count method Nom (Bld) Auto [facility] Eosinophils (Bld) [#/Vol] 0.34 10*3/uL [facility] Eosinophils/100 WBC (Bld) 4.8 % [facility] Erythrocyte distribution width (RBC) [Ratio] 15.5 % High 11.5 - 15.0 % [facility] Hematocrit (Bld) [Volume fraction] 37.4 % Low 39.0 - 51.0 % [facility] Hemoglobin (Bld) [Mass/Vol] 12.1 g/dL Low 13.0 - 17.0 g/dL [facility] Immature granulocytes (Bld) [#/Vol] [facility] Immature granulocytes/100 WBC (Bld) 0.3 % [facility] Interpretation and review of laboratory results Abnormal [facility] Lymphocytes (Bld) [#/Vol] 1.46 10*3/uL [facility] Lymphocytes/100 WBC (Bld) 20.5 % [facility] MCH (RBC) [Entitic mass] 29.8 pg 26.0 - 34.0 pg [facility] MCHC (RBC) [Mass/Vol] 32.4 g/dL 30.5 - 36.0 g/dL [facility] MCV (RBC) [Entitic vol] 92.1 fL 80.0 - 100.0 fL [facility] Monocytes (Bld) [#/Vol] 0.69 10*3/uL [facility] Monocytes/100 WBC (Bld) 9.7 % [facility] Neutrophils (Bld) [#/Vol] 4.51 10*3/uL [facility] Neutrophils/100 WBC (Bld) 63.4 % [facility] Nucleated RBC (Bld) [#/Vol] [facility] Nucleated RBC/100 WBC (Bld) [Ratio] 0.0 % /100 WBC [facility] Platelet mean volume (Bld) [Entitic vol] 9.6 fL 9.0 - 12.7 fL [facility] Platelets (Bld) [#/Vol] 323 10*3/uL [facility] RBC (Bld) [#/Vol] 4.06 10*6/uL Low 4.20 - 6.0 0 m/uL [facility] WBC (Bld) [#/Vol] 7.11 10*3/uL [facility] Basophils (Bld) [#/Vol] 0.09 10*3/uL Normal <0.11 [facility] Comment on above: Order Comment: Speci men Type: BLOOD SPECIMENOrdering Facility: [facility] Address: [address] [place] [address] Performed By: #### 5 7021-8 ####[facility] LABCLIA [id number] [place] [address] [place] Basophils/100 WBC (Bld) 1.3 % Normal [facility] Comment on above: Order Comment: Speci men Type: BLOOD SPECIMENOrdering Facility: [facility] Address: [address] [place] [address] Performed By: #### 5 7021-8 ####[facility] LABCLIA [id number] [place] [address] [place] Differential cell count method Nom (Bld) Auto Normal [facility] Comment on above: Order Comment: Speci men Type: BLOOD SPECIMENOrdering Facility: [facility] Address: [address] [place] [address] Performed By: #### 5 7021-8 ####[facility] LABCLIA [id number] [place] [address] [place] Eosinophils (Bld) [#/Vol] 0.34 10*3/uL Normal <0.46 [facility] Comment on above: Order Comment: Speci men Type: BLOOD SPECIMENOrdering Facility: [facility] Address: [address] [place] [address] Performed By: #### 5 7021-8 ####[facility] LABCLIA [id number] [place] [address] [place] Eosinophils/100 WBC (Bld) 4.8 % Normal [facility] Comment on above: Order Comment: Speci men Type: BLOOD SPECIMENOrdering Facility: [facility] Address: [address] [place] [address] Performed By: #### 5 7021-8 ####[facility] LABCLIA [id number] [place] [address] [place] Erythrocyte distribution width (RBC) [Ratio] 15.5 % High 11.5-15.0 [facility] Comment on above: Order Comment: Speci men Type: BLOOD SPECIMENOrdering Facility: [facility] Address: [address] [place] [address] Performed By: #### 5 7021-8 ####[facility] LABCLIA [id number] [place] [address] [place] Hematocrit (Bld) [Volume fraction] 37.4 % Low 39.0-51.0 [facility] Comment on above: Order Comment: Speci men Type: BLOOD SPECIMENOrdering Facility: [facility] Address: [address] [place] [address] Performed By: #### 5 7021-8 ####[facility] LABIA [id number] [place] [address] [place] Hemoglobin (Bld) [Mass/Vol] 12.1 g/dL Low 13.0-17.0 [facility] Comment on above: Order Comment: Speci men Type: BLOOD SPECIMENOrdering Facility: [facility] Address: [address] [place] [address] Performed By: #### 5 7021-8 ####[facility] LABIA [id number] [place] [address] [place] Immature granulocytes (Bld) [#/Vol] 10*3/uL Normal <0.10 [facility] Comment on above: Order Comment: Speci men Type: BLOOD SPECIMENOrdering Facility: [facility] Address: [address] [place] [address] Performed By: #### 5 7021-8 ####[facility] LABCLIA [id number] [place] [address] [place] Immature granulocytes/100 WBC (Bld) 0.3 % Normal [facility] Comment on above: Order Comment: Speci men Type: BLOOD SPECIMENOrdering Facility: [facility] Address: [address] [place] [address] Performed By: #### 5 7021-8 ####[facility] LABCLIA [id number] [place] [address] [place] Lymphocytes (Bld) [#/Vol] 1.46 10*3/uL Normal 1.00-4.00 [facility] Comment on above: Order Comment: Speci men Type: BLOOD SPECIMENOrdering Facility: [facility] Address: [address] [place] [address] Performed By: #### 5 7021-8 ####[facility] LABCLIA [id number] [place] [address] [place] Lymphocytes/100 WBC (Bld) 20.5 % Normal [facility] Comment on above: Order Comment: Speci men Type: BLOOD SPECIMENOrdering Facility: [facility] Address: [address] [place] [address] Performed By: #### 5 7021-8 ####[facility] LABCLIA [id number] [place] [address] [place] MCH (RBC) [Entitic mass] 29.8 pg Normal 26.0-34.0 [facility] Comment on above: Order Comment: Speci men Type: BLOOD SPECIMENOrdering Facility: [facility] Address: [address] [place] [address] Performed By: #### 5 7021-8 ####[facility] LABCLIA [id number] [place] [address] [place] MCHC (RBC) [Mass/Vol] 32.4 g/dL Normal 30.5-36.0 [facility] Comment on above: Order Comment: Speci men Type: BLOOD SPECIMENOrdering Facility: [facility] Address: [address] [place] [address] Performed By: #### 5 7021-8 ####[facility] LABCLIA [id number] [place] [address] [place] MCV (RBC) [Entitic vol] 92.1 fL Normal 80.0-100.0 [facility] Comment on above: Order Comment: Speci men Type: BLOOD SPECIMENOrdering Facility: [facility] Address: [address] [place] [address] Performed By: #### 5 7021-8 ####[facility] LABIA [id number] [place] [address] [place] Monocytes (Bld) [#/Vol] 0.69 10*3/uL Normal <0.87 [facility] Comment on above: Order Comment: Speci men Type: BLOOD SPECIMENOrdering Facility: [facility] Address: [address] [place] [address] Performed By: #### 5 7021-8 ####[facility] LABCLIA [id number] [place] [address] [place] Monocytes/100 WBC (Bld) 9.7 % Normal [facility] Comment on above: Order Comment: Speci men Type: BLOOD SPECIMENOrdering Facility: [facility] Address: [address] [place] [address] Performed By: #### 5 7021-8 ####[facility] LABIA [id number] [place] [address] [place] Neutrophils (Bld) [#/Vol] 4.51 10*3/uL Normal 1.45-7.50 [facility] Comment on above: Order Comment: Speci men Type: BLOOD SPECIMENOrdering Facility: [facility] Address: [address] [place] [address] Performed By: #### 5 7021-8 ####[facility] LABCLIA [id number] [place] [address] [place] Neutrophils/100 WBC (Bld) 63.4 % Normal [facility] Comment on above: Order Comment: Speci men Type: BLOOD SPECIMENOrdering Facility: [facility] Address: [address] [place] [id number] Performed By: #### 5 7021-8 ####[facility] LABCLIA [id number] [place] [address] [place] Nucleated RBC (Bld) [#/Vol] 10*3/uL Normal <0.01 [facility] Comment on above: Order Comment: Speci men Type: BLOOD SPECIMENOrdering Facility: [facility] Address: [address] [place] [address] Performed By: #### 5 7021-8 ####[facility] LABCLIA [id number] [place] [address] [place] Nucleated RBC/100 WBC (Bld) [Ratio] 0.0 /100 WBC Normal [facility] Comment on above: Order Comment: Speci men Type: BLOOD SPECIMENOrdering Facility: [facility] Address: [address] [place] [address] Performed By: #### 5 7021-8 ####[facility] LABCLIA [id number] [place] [address] [place] Platelet mean volume (Bld) [Entitic vol] 9.6 fL Normal 9.0-12.7 [facility] Comment on above: Order Comment: Speci men Type: BLOOD SPECIMENOrdering Facility: [facility] Address: [address] [place] [address] Performed By: #### 5 7021-8 ####[facility] LABCLIA [id number] [place] [address] [place] Platelets (Bld) [#/Vol] 323 10*3/uL Normal 150-400 [facility] Comment on above: Order Comment: Speci men Type: BLOOD SPECIMENOrdering Facility: [facility] Address: [address] [place] [address] Performed By: #### 5 7021-8 ####[facility] LABCLIA [id number] [place] [address] [place] RBC (Bld) [#/Vol] 4.06 10*6/uL Low 4.20-6.00 [facility] Comment on above: Order Comment: Speci men Type: BLOOD SPECIMENOrdering Facility: [facility] Address: [address] [place] [address] Performed By: #### 5 7021-8 ####[facility] LABCLIA [id number] [place] [address] [place] WBC (Bld) [#/Vol] 7.11 10*3/uL Normal 3.70-11.00 [facility] Comment on above: Order Comment: Speci men Type: BLOOD SPECIMENOrdering Facility: [facility] Address: [address] [place] [address] Performed By: #### 5 7021-8 ####[facility] LABCLIA [id number] [place] [address] [place] CNOVon 03-13-2024 CNOV Normal [facility] CNPNon 03-13-2024 CNPN Normal [facility] Comprehensive metabolic 2000 panelon 03-13-2024 Albumin [Mass/Vol] 3.8 g/dL Low 3.9 - 4.9 g/dL [facility] ALP [Catalytic activity/Vol] 65 U/L 38 - 113 U/L [facility] ALT [Catalytic activity/Vol] 7 U/L Low 10 - 54 U/L [facility] Anion gap [Moles/Vol] 11 mmol/L 9 - 18 mmol/L [facility] AST [Catalytic activity/Vol] 12 U/L Low 14 - 40 U/L [facility] Bilirubin [Mass/Vol] 0.2 mg/dL 0.2 - 1.3 mg/dL [facility] Calcium [Mass/Vol] 9.5 mg/dL 8.5 - 10. 2 mg/dL [facility] Chloride [Moles/Vol] 103 mmol/L 97 - 105 mmol/L [facility] CO2 [Moles/Vol] 20 mmol/L Low 22 - 30 mmol/L [facility] Creatinine [Mass/Vol] 1.21 mg/dL 0.73 - 1.22 mg/dL [facility] GFR/1.73 sq M.predicted among non-blacks MDRD (S/P/Bld) [Vol rate/Area] 63 mL/min/{1.73_m2} - PINF [facility] Comment on above: Estimated Glomerular Filtration [...] 101 mg/dL High 74 - 99 mg/dL [facility] Comment on above: The [place] Diab[employer] s Association (ADA) provides guidance for [...] Standards of Medical Care in Diabetes 2016, [place] [employer]. Diabetes Care. 2016.39(Suppl 1). Interpretation and review of laboratory results Abnormal [facility] Potassium [Moles/Vol] 4.4 mmol/L 3.7 - 5.1 mmol/L [facility] Protein [Mass/Vol] 7.4 g/dL 6.3 - 8.0 g/dL [facility] Sodium [Moles/Vol] 134 mmol/L Low 136 - 144 mmol/L [facility] Urea nitrogen [Mass/Vol] 19 mg/dL 9 - 24 mg/dL [facility] Albumin [Mass/Vol] 3.8 g/dL Low 3.9-4.9 [facility] Comment on above: Order Comment: Speci men Type: BLOOD SPECIMENOrdering Facility: [facility] Address: [address] [place] [address] Performed By: #### 1 9123-9, 61872-3, 2131-9, 3016-3 ####[facility] LABCLIA [id number] [place] [address] [place] ALP [Catalytic activity/Vol] 65 U/L Normal 38-113 [facility] Comment on above: Order Comment: Speci men Type: BLOOD SPECIMENOrdering Facility: [facility] Address: [address] [place] [address] Performed By: #### 1 9123-9, 96124-9, 2131-9, 3016-3 ####[facility] LABIA [id number] [place] [address] [place] ALT [Catalytic activity/Vol] 7 U/L Low 10-54 [facility] Comment on above: Order Comment: Speci men Type: BLOOD SPECIMENOrdering Facility: [facility] Address: [address] [place] [address] Performed By: #### 1 9123-9, 81411-1, 2131-9, 3016-3 ####[facility] LABIA [id number] [place] [address] [place] Anion gap [Moles/Vol] 11 mmol/L Normal 9-18 [facility] Comment on above: Order Comment: Speci men Type: BLOOD SPECIMENOrdering Facility: [facility] Address: [address] [place] [address] Performed By: #### 1 9123-9, 16301-7, 2131-9, 3016-3 ####[facility] LABIA [id number] [place] [address] [place] AST [Catalytic activity/Vol] 12 U/L Low 14-40 [facility] Comment on above: Order Comment: Speci men Type: BLOOD SPECIMENOrdering Facility: [facility] Address: [address] [place] [address] Performed By: #### 1 9123-9, 83367-9, 2132-9, 3016-3 ####[facility] LABCLIA [id number] [address] [address] [place] Bilirubin [Mass/Vol] 0.2 mg/dL Normal 0.2-1.3 [facility] Comment on above: Order Comment: Speci men Type: BLOOD SPECIMENOrdering Facility: [facility] Address: [address] [place] [address] Performed By: #### 1 9123-9, 42868-8, 2131-9, 3016-3 ####[facility] LABIA [id number] [place] [address] [place] Calcium [Mass/Vol] 9.5 mg/dL Normal 8.5-10.2 [facility] Comment on above: Order Comment: Speci men Type: BLOOD SPECIMENOrdering Facility: [facility] Address: [address] [place], [place] [address] Performed By: #### 1 9123-9, 49348-3, 9, 3016-3 ####[facility] LABIA [id number] [place] [id number] [place] Chloride [Moles/Vol] 103 mmol/L Normal 97-105 [facility] Comment on above: Order Comment: Speci men Type: BLOOD SPECIMENOrdering Facility: [facility] Address: [address] [place], [place] [address] Performed By: #### 1 9123-9, 65792-2, 213-9, 3016-3 ####[facility] LABCLIA [id number] [place] [id number] [place] CO2 [Moles/Vol] 20 mmol/L Low 22-30 [facility] Comment on above: Order Comment: Speci men Type: BLOOD SPECIMENOrdering Facility: [facility] Address: [address] [place] [address] Performed By: #### 1 9123-9, 21409-2, 2131-9, 6-3 ####[facility] LABIA [id number] [place] [id number] [place] Creatinine [Mass/Vol] 1.21 mg/dL Normal 0.73-1.22 [facility] Comment on above: Order Comment: Speci men Type: BLOOD SPECIMENOrdering Facility: [facility] Address: [address] [place] [address] Performed By: #### 1 9123-9, 29572-7, 2131-9, 6-3 ####[facility] [id number] [place] [address] [place] Creatinine and Glomerular filtration rate.predicted panel (S/P/Bld) 63 mL/min/1.73m??? Normal >=60 [facility] Comment on above: Order Comment: Fernanda men Type: BLOOD SPECIMENOrdering Facility: [facility] Address: [address] [place] [address] Result Comment: Kalani mated Glomerular Filtration Rate [...] reflect actual GFR. Performed By: #### 1 9123-9, 92543-3, 9, 6-3 ####[facility] LABIA [id number] [place] [id number] [place] Glucose [Mass/Vol] 101 mg/dL High 74-99 [facility] Comment on above: Order Comment: Fernanda men Type: BLOOD SPECIMENOrdering Facility: [facility] Address: [address] [place] [address] Result Comment: The [place] Diabetes Association (ADA) provides guidance for cutoff [...] Standards of Medical Care in Diabetes 2016, [place] [employer]. Diabetes Care. 2016.39(Suppl 1). Performed By: #### 1 9123-9, 36245-0, 2131-9, 6-3 ####[facility] LABIA [id number] [place] [address] [place] Potassium [Moles/Vol] 4.4 mmol/L Normal 3.7-5.1 [facility] Comment on above: Order Comment: Speci men Type: BLOOD SPECIMENOrdering Facility: [facility] Address: [address] [place] [address] Performed By: #### 1 9123-9, 62446-0, 9, 6-3 ####[facility] LABIA [id number] [place] [address] [place] Protein [Mass/Vol] 7.4 g/dL Normal 6.3-8.0 [facility] Comment on above: Order Comment: Speci men Type: BLOOD SPECIMENOrdering Facility: [facility] Address: [address] [place] [address] Performed By: #### 1 9123-9, 76467-2, 2139, 3016-3 ####[facility] LABIA [id number] [place] [address] [place] Sodium [Moles/Vol] 134 mmol/L Low 136-144 [facility] Comment on above: Order Comment: Speci men Type: BLOOD SPECIMENOrdering Facility: [facility] Address: [address] [place] [address] Performed By: #### 1 9123-9, 27386-9, 2131-9, 6-3 ####[facility] LABCLIA [id number] [place] [id number] [place] Urea nitrogen [Mass/Vol] 19 mg/dL Normal 9-24 [facility] Comment on above: Order Comment: Speci men Type: BLOOD SPECIMENOrdering Facility: [facility] Address: [address] [place], [place] [address] Performed By: #### 1 9123-9, 92489-0, 2131-9, 6-3 ####[facility] LABIA [id number] [place] [id number] [place] MAGNESIUMon 03-13-2024 Magnesium [Mass/Vol] 2.1 mg/dL 1.7 - 2.3 mg/dL [facility] Magnesium SerPl-mCncon 03-13 Magnesium [Mass/Vol] 2.1 mg/dL Normal 1.7-2.3 [facility] Comment on above: Order Comment: Speci men Type: BLOOD SPECIMENOrdering Facility: [facility] Address: [address] [place], [place] [address] Performed By: #### 1 9123-9, 39844-0, 9, 6-3 ####[facility] LABIA [id number] [place] [id number] [place] Magnesium [Mass/Vol]on 03-13 Interpretation and review of laboratory results Normal [facility] No Panel Informationon 03-13 Interpretation and review of laboratory results Normal [facility] THYROID STIMULATING HORMONEo n 03-13-2024 TSH Qn 2.000 m[IU]/L [facility] TSH SerPl-aCncon 03-13-2024 TSH Qn 2.000 m[IU]/L Normal 0.270-4.200 [facility] Comment on above: Order Comment: Speci men Type: BLOOD SPECIMENOrdering Facility: [facility] Address: [address] [place] [address] [place] [id number] Performed By: #### 1 9123-9, 32360-9, 2-9, 3016-3 ####[facility] LABIA [id number] [place] [address] [place] VITAMIN B12on 03-13-2024 Cobalamin (Vitamin B12) [Mass/Vol] 414 pg/mL 232 - 1245 pg/mL [facility] Vit B12 SerPl-mCncon 024 Cobalamin (Vitamin B12) [Mass/Vol] 414 pg/mL Normal 232-1245 [facility] Comment on above: Order Comment: Speci men Type: BLOOD SPECIMENOrdering Facility: [facility] Address: [address] [id number] Performed By: #### 1 9123-9, 41313-5, 9, 6-3 ####[facility] LABCLIA [id number] [place] [address] [place] CNPNon 03-10-2024 CNPN Normal [facility] CNOVon 03-06-2024 CNOV Normal [facility] CNPNon 03-02-2024 CNPN Normal [facility] CNPTOUTREACHon 02-24-2024 CNPTOUTREACH Normal [facility] CNPNon 02-14-2024 CNPN Normal [facility] CNOVon 02-09-2024 CNOV Normal [facility] CNPNon 02-09-2024 CNPN Normal [facility] US Prostate transrectalon [facility] CNPNon 02-08-2024 CNPN Normal [facility] CNPNon 02-04-2024 CNPN Normal [facility] CNCOon 02-03-2024 CNCO Letter Text Normal [facility] CNOVon 02-03-2024 CNOV Normal [facility] CNPNon 02-03-2024 CNPN Normal [facility] CNPNon 02-01-2024 CNPN Normal [facility] CBC W Auto Differential pane l (Bld)on 01-31-2024 Basophils (Bld) [#/Vol] 0.10 10*3/uL Normal <0.11 [facility] Comment on above: Order Comment: Speci men Type: BLOOD SPECIMENOrdering Facility: [facility] Address: [address] [place] [address] Performed By: #### 5 7021-8 ####[facility] BAYWOHLIA [id number] [place] [address] [place] Basophils/100 WBC (Bld) 1.1 % Normal [facility] Comment on above: Order Comment: Speci men Type: BLOOD SPECIMENOrdering Facility: [facility] Address: [address] [place] [address] Performed By: #### 5 7021-8 ####[facility] [id number] [place] [address] [place] Differential cell count method Nom (Bld) Auto Normal [facility] Comment on above: Order Comment: Speci men Type: BLOOD SPECIMENOrdering Facility: [facility] Address: [address] [place] [address] Performed By: #### 5 7021-8 ####[facility] [id number] [place] [address] [place] Eosinophils (Bld) [#/Vol] 0.39 10*3/uL Normal <0.46 [facility] Comment on above: Order Comment: Speci men Type: BLOOD SPECIMENOrdering Facility: [facility] Address: [address] [place] [address] Performed By: #### 5 7021-8 ####[facility] [id number] [place] [address] [place] Eosinophils/100 WBC (Bld) 4.4 % Normal [facility] Comment on above: Order Comment: Speci men Type: BLOOD SPECIMENOrdering Facility: [facility] Address: [address] [place] [address] Performed By: #### 5 7021-8 ####[facility] NESTORMONCKS CORNERJUSTINE [id number] [place] [address] [place] Erythrocyte distribution width (RBC) [Ratio] 16.4 % High 11.5-15.0 [facility] Comment on above: Order Comment: Speci men Type: BLOOD SPECIMENOrdering Facility: [facility] Address: [address] [place] [address] Performed By: #### 5 7021-8 ####[facility] [id number] [place] [address] [place] Hematocrit (Bld) [Volume fraction] 33.4 % Low 39.0-51.0 [facility] Comment on above: Order Comment: Speci men Type: BLOOD SPECIMENOrdering Facility: [facility] Address: [address] [place] [address] Performed By: #### 5 7021-8 ####[facility] [id number] [place] [address] [place] Hemoglobin (Bld) [Mass/Vol] 11.0 g/dL Low 13.0-17.0 [facility] Comment on above: Order Comment: Speci men Type: BLOOD SPECIMENOrdering Facility: [facility] Address: [address] [place] [address] Performed By: #### 5 7021-8 ####[facility] [id number] [place] [address] [place] Immature granulocytes (Bld) [#/Vol] 0.03 10*3/uL Normal <0.10 [facility] Comment on above: Order Comment: Speci men Type: BLOOD SPECIMENOrdering Facility: [facility] Address: [address] [place] [address] Performed By: #### 5 7021-8 ####[facility] BAYWELLIA [id number] [place] [address] [place] Immature granulocytes/100 WBC (Bld) 0.3 % Normal [facility] Comment on above: Order Comment: Speci men Type: BLOOD SPECIMENOrdering Facility: [facility] Address: [address] [place] [address] Performed By: #### 5 7021-8 ####[facility] HOSPITALJEROMEBRIGHAM CITY [facility] [id number] [place] [address] [place] Lymphocytes (Bld) [#/Vol] 1.71 10*3/uL Normal 1.00-4.00 [facility] Comment on above: Order Comment: Speci men Type: BLOOD SPECIMENOrdering Facility: [facility] Address: [address] [place] [address] Performed By: #### 5 7021-8 ####[facility] [id number] [place] [address] [place] Lymphocytes/100 WBC (Bld) 19.4 % Normal [facility] Comment on above: Order Comment: Speci men Type: BLOOD SPECIMENOrdering Facility: [facility] Address: [address] [place] [address] Performed By: #### 5 7021-8 ####[facility] CENTERRENNYA [id number] [place] [address] [place] MCH (RBC) [Entitic mass] 29.5 pg Normal 26.0-34.0 [facility] Comment on above: Order Comment: Speci men Type: BLOOD SPECIMENOrdering Facility: [facility] Address: [address] [place] [address] Performed By: #### 5 7021-8 ####[facility] HOSPITALNCLIA [id number] [place] [address] [place] MCHC (RBC) [Mass/Vol] 32.9 g/dL Normal 30.5-36.0 [facility] Comment on above: Order Comment: Speci men Type: BLOOD SPECIMENOrdering Facility: [facility] Address: [address] [place] [address] Performed By: #### 5 7021-8 ####[facility]OSPITALNCBRIGHAM [facility] [id number] [place] [address] [place] MCV (RBC) [Entitic vol] 89.5 fL Normal 80.0-100.0 [facility] Comment on above: Order Comment: Speci men Type: BLOOD SPECIMENOrdering Facility: [facility] Address: [address] [place] [address] Performed By: #### 5 7021-8 ####[facility] [id number] [place] [address] [place] Monocytes (Bld) [#/Vol] 0.82 10*3/uL Normal <0.87 [facility] Comment on above: Order Comment: Speci men Type: BLOOD SPECIMENOrdering Facility: [facility] Address: [address] [place] [address] Performed By: #### 5 7021-8 ####[facility] [id number] [place] [address] [place] Monocytes/100 WBC (Bld) 9.3 % Normal [facility] Comment on above: Order Comment: Speci men Type: BLOOD SPECIMENOrdering Facility: [facility] Address: [address] [place] [address] Performed By: #### 5 7021-8 ####[facility] [id number] [place] [address] [place] Neutrophils (Bld) [#/Vol] 5.76 10*3/uL Normal 1.45-7.50 [facility] Comment on above: Order Comment: Speci men Type: BLOOD SPECIMENOrdering Facility: [facility] Address: [address] [place] [address] Performed By: #### 5 7021-8 ####[facility] NESTORERIKALIA [id number] [place] [address] [place] [facility] Neutrophils/100 WBC (Bld) 65.5 % Normal [facility] Comment on above: Order Comment: Speci men Type: BLOOD SPECIMENOrdering Facility: [facility] Address: [address] [place] [address] Performed By: #### 5 7021-8 ####[facility] HOSPITALJEROMELIA [id number] [place] [address] [place] Nucleated RBC (Bld) [#/Vol] 10*3/uL Normal <0.01 [facility] Comment on above: Order Comment: Speci men Type: BLOOD SPECIMENOrdering Facility: [facility] Address: [address] [place] [address] Performed By: #### 5 7021-8 ####[facility] HOSPITALNCLIA [id number] [place] [address] [place] Nucleated RBC/100 WBC (Bld) [Ratio] 0.0 /100 WBC Normal [facility] Comment on above: Order Comment: Speci men Type: BLOOD SPECIMENOrdering Facility: [facility] Address: [address] [place] [address] Performed By: #### 5 7021-8 ####[facility] CENTERLIA [id number] [place] [address] [place] Platelet mean volume (Bld) [Entitic vol] 8.7 fL Low 9.0-12.7 [facility] Comment on above: Order Comment: Speci men Type: BLOOD SPECIMENOrdering Facility: [facility] Address: [address] [place] [address] Performed By: #### 5 7021-8 ####[facility] CENTERLIA [id number] [place] [address] [place] Platelets (Bld) [#/Vol] 273 10*3/uL Normal 150-400 [facility] Comment on above: Order Comment: Speci men Type: BLOOD SPECIMENOrdering Facility: [facility] Address: [address] [place] [address] Performed By: #### 5 7021-8 ####[facility] HOSPITALJEROMEShiloh [id number] [place] [address] [place] RBC (Bld) [#/Vol] 3.73 10*6/uL Low 4.20-6.00 [facility] Comment on above: Order Comment: Speci men Type: BLOOD SPECIMENOrdering Facility: [facility] Address: [address] [place] [address] Performed By: #### 5 7021-8 ####[facility]ENTERA [id number] [place] [address] [place] WBC (Bld) [#/Vol] 8.81 10*3/uL Normal 3.70-11.00 [facility] Comment on above: Order Comment: Speci men Type: BLOOD SPECIMENOrdering Facility: [facility] Address: [address] [place] [address] Performed By: #### 5 7021-8 ####[facility] HOSPITALJUSTINE [id number] [place] [address] [place] CNOVon 01-31-2024 CNOV Normal [facility] Comprehensive metabolic 2000 panelon 01-31-2024 Albumin [Mass/Vol] 3.8 g/dL Low 3.9-4.9 [facility] Comment on above: Order Comment: Speci men Type: BLOOD SPECIMENOrdering Facility: [facility] Address: [address] [place] [address] Performed By: #### 2 4323-8 ####[facility] [id number] [place] [address] [place] ALP [Catalytic activity/Vol] 71 U/L Normal 38-113 [facility] Comment on above: Order Comment: Speci men Type: BLOOD SPECIMENOrdering Facility: [facility] Address: [address] [place] [address] Performed By: #### 2 4323-8 ####[facility] CENTERLIA [id number] [place] [address] [place] ALT [Catalytic activity/Vol] 6 U/L Low 10-54 [facility] Comment on above: Order Comment: Speci men Type: BLOOD SPECIMENOrdering Facility: [facility] Address: [address] [place] [address] Performed By: #### 2 4323-8 ####[facility] HOSPITALNCLIA [id number] [place] [address] [place] Anion gap [Moles/Vol] 8 mmol/L Low 9-18 [facility] Comment on above: Order Comment: Speci men Type: BLOOD SPECIMENOrdering Facility: [facility] Address: [address] [place] [address] Performed By: #### 2 4323-8 ####[facility] CENTERLIA [id number] [place] [address] [place] AST [Catalytic activity/Vol] 7 U/L Low 14-40 [facility] Comment on above: Order Comment: Speci men Type: BLOOD SPECIMENOrdering Facility: [facility] Address: [address] [place] [address] Performed By: #### 2 4323-8 ####[facility] HOSPITALNCLIA [id number] [place] [address] [place] Bilirubin [Mass/Vol] mg/dL Low 0.2-1.3 [facility] Comment on above: Order Comment: Speci men Type: BLOOD SPECIMENOrdering Facility: [facility] Address: [address] [place] [address] Performed By: #### 2 4323-8 ####[facility] NESTORLINDSAYWJEROMELIA [id number] [place] [address] [place] Calcium [Mass/Vol] 9.4 mg/dL Normal 8.5-10.2 [facility] Comment on above: Order Comment: Speci men Type: BLOOD SPECIMENOrdering Facility: [facility] Address: [address] [place] [address] Performed By: #### 2 4323-8 ####[facility] BAYWJEROMELIA [id number] [place] [address] [place] Chloride [Moles/Vol] 103 mmol/L Normal 97-105 [facility] Comment on above: Order Comment: Speci men Type: BLOOD SPECIMENOrdering Facility: [facility] Address: [address] [place] [address] Performed By: #### 2 4323-8 ####[facility] HOSPITALJEROMELIA [id number] [place] [address] [place] CO2 [Moles/Vol] 24 mmol/L Normal 22-30 [facility] Comment on above: Order Comment: Speci men Type: BLOOD SPECIMENOrdering Facility: [facility] Address: [address] [place] [address] Performed By: #### 2 4323-8 ####[facility] MILLWNCLIA [id number] [place] [address] [place] Creatinine [Mass/Vol] 1.33 mg/dL High 0.73-1.22 [facility] Comment on above: Order Comment: Speci men Type: BLOOD SPECIMENOrdering Facility: [facility] Address: [address] [place], [place] [address] Performed By: #### 2 4323-8 ####[facility] HOSPITALNCLIA [id number] [place] [address] [place] Creatinine and Glomerular filtration rate.predicted panel (S/P/Bld) 56 mL/min/1.73m??? Low >=60 [facility] Comment on above: Order Comment: Fernanda franks Type: BLOOD SPECIMENOrdering Facility: [facility] Address: [address] [place] [address] Result Comment: Kalani mated Glomerular Filtration Rate [...] actual GFR. Performed By: #### 2 4323-8 ####[facility] [id number] [place] [address] [place] Glucose [Mass/Vol] 111 mg/dL High 74-99 [facility] Comment on above: Order Comment: Fernanda franks Type: BLOOD SPECIMENOrdering Facility: [facility] Address: [address] [place] [address] Result Comment: The [place] Diabetes Association (ADA) provides guidance for cutoff [...] Standards of Medical Care in Diabetes 2016, [place] [employer]. Diabetes Care. 2016.39(Suppl 1). Performed By: #### 2 4323-8 ####[facility] HOSPITALNCBRIGHAM [facility] [id number] [place] [address] [place] Potassium [Moles/Vol] 4.3 mmol/L Normal 3.7-5.1 [facility] Comment on above: Order Comment: Speci men Type: BLOOD SPECIMENOrdering Facility: [facility] Address: [address] [place] [address] Performed By: #### 2 4323-8 ####[facility] MILLTOWJEROMELIA [id number] [place] [address] [place] Protein [Mass/Vol] 7.3 g/dL Normal 6.3-8.0 [facility] Comment on above: Order Comment: Speci men Type: BLOOD SPECIMENOrdering Facility: [facility] Address: [address] [place] [address] Performed By: #### 2 4323-8 ####[facility] MILLWJEROMELIA [id number] [place] [address] [place] Sodium [Moles/Vol] 135 mmol/L Low 136-144 [facility] Comment on above: Order Comment: Speci men Type: BLOOD SPECIMENOrdering Facility: [facility] Address: [address] [place] [address] Performed By: #### 2 4323-8 ####[facility] MILLWJEROMELIA [id number] [place] [address] [place] Urea nitrogen [Mass/Vol] 26 mg/dL High 9-24 [facility] Comment on above: Order Comment: Speci men Type: BLOOD SPECIMENOrdering Facility: [facility] Address: [address] [place] [address] Performed By: #### 2 4323-8 ####[facility] MILLWNCLIA [id number] [place] [address] [place] CNPNon 01-10-2024 CNPN Normal [facility] CNNURSEon 01-04-2024 CNNURSE Normal [facility] CNPNon 01-04-2024 CNPN Normal [facility] CNOVon 01-03-2024 CNOV Normal [facility] CNOV Normal [facility] CNPNon 01-03-2024 CNPN Normal [facility] Hemoccult Stl Ql IAon 2023 Lower GI hemoglobin IA Ql (Stl) Negative Normal Negative [facility] Comment on above: Order Comment: Speci men Type: STOOL SPECIMENOrdering Facility: [facility] Address: [address] [place] [address] Performed By: #### [id number] ####[facility] LABCLIA [id number] [place] [address] [place] UA DIP, URINE (POC)on 2023 BILIRUBIN UA (POCT) Negative Negative [facility] CLARITY UA (POCT) Slightly Cloudy Cl [facility] COLOR UA (POCT) Light yellow [facility] GLUCOSE UA (POCT) Negative Negative mg/dL [facility] Hemoglobin Ql (U) Negative Negative [facility] [facility] KETONE UA (POCT) Negative Negative mg/dL [facility] LEUKOCYTES UA (POCT) Small Abnormal Negative [facility] NITRITE UA (POCT) Negative Negative [facility] PH UA (POCT) 5.5 4.5 - 8.0 [facility] Protein Ql (U) Negative Negative mg/dL [facility] SPECIFIC GRAVITY UA (POCT) 1.015 1.005 - 1.030 [facility] UROBILINOGEN UA (POCT) 0.2 E.U./dL Normal E.U./dL [facility] CNPNon 12-31-2023 CNPN Normal [facility] US KIDNEY/BLADDERon 12-31-19 24 US KIDNEY/BLADDER Normal [facility] US Kidney - bilateral and Ur inary bladderon 12-31-2023 [facility] CNPNon 12-29-2023 CNPN Normal [facility] Bacteria Ur Culton Bacteria identified Cx Nom (U) ORGANISM ID: 1 >=100,000 CFU/ml Normal urogenital yolanda ORGANISM ID: 2 <10,000 CFU/ml Lactose negative gram negative bacilli Insignificant colony count. No further workup. Normal [facility] Comment on above: Performed By: #### 6 30-4 ####[facility] LABCLIA [id number] [place] [address] [place] CBC W Auto Differential pane l (Bld)on 12-28-2023 Basophils (Bld) [#/Vol] 0.13 10*3/uL High <0.11 [facility] Comment on above: Order Comment: Speci men Type: BLOOD SPECIMENOrdering Facility: [facility] Address: [address] [place] [address] Performed By: #### 1 4196-0, 52792-0 ####[facility] LABCLIA [id number] [place] [address] [place] Basophils/100 WBC (Bld) 1.4 % Normal [facility] Comment on above: Order Comment: Speci men Type: BLOOD SPECIMENOrdering Facility: [facility] Address: [address] [place] [address] Performed By: #### 1 4196-0, 95793-0 ####[facility] LABCLIA [id number] [place] [address] [place] Differential cell count method Nom (Bld) Auto Normal [facility] Comment on above: Order Comment: Speci men Type: BLOOD SPECIMENOrdering Facility: [facility] Address: [address] [place] [address] Performed By: #### 1 4196-0, 86048-3 ####[facility] LABCLIA [id number] [place] [address] [place] Eosinophils (Bld) [#/Vol] 0.47 10*3/uL High <0.46 [facility] Comment on above: Order Comment: Speci men Type: BLOOD SPECIMENOrdering Facility: [facility] Address: [address] [place] [address] Performed By: #### 1 4196-0, 85090-4 ####[facility] LABCLIA [id number] [place] [address] [place] Eosinophils/100 WBC (Bld) 5.1 % Normal [facility] Comment on above: Order Comment: Speci men Type: BLOOD SPECIMENOrdering Facility: [facility] Address: [address] [place] [address] Performed By: #### 1 4196-0, 66288-8 ####[facility] LABCLIA [id number] [place] [address] [place] Erythrocyte distribution width (RBC) [Ratio] 15.0 % Normal 11.5-15.0 [facility] Comment on above: Order Comment: Speci men Type: BLOOD SPECIMENOrdering Facility: [facility] Address: [address] [place] [address] Performed By: #### 1 4196-0, 57388-1 ####[facility] LABIA [id number] [place] [address] [place] Hematocrit (Bld) [Volume fraction] 33.5 % Low 39.0-51.0 [facility] Comment on above: Order Comment: Speci men Type: BLOOD SPECIMENOrdering Facility: [facility] Address: [address] [place] [address] Performed By: #### 1 4196-0, 20912-3 ####[facility] LABIA [id number] [place] [address] [place] Hemoglobin (Bld) [Mass/Vol] 10.5 g/dL Low 13.0-17.0 [facility] Comment on above: Order Comment: Speci men Type: BLOOD SPECIMENOrdering Facility: [facility] Address: [address] [place] [address] Performed By: #### 1 4196-0, 56647-3 ####[facility] LABIA [id number] [id number] [address] [place] Immature granulocytes (Bld) [#/Vol] 0.05 10*3/uL Normal <0.10 [facility] Comment on above: Order Comment: Speci men Type: BLOOD SPECIMENOrdering Facility: [facility] Address: [address] [place] [address] Performed By: #### 1 4196-0, 34716-5 ####[facility] LABCLIA [id number] [place] [address] [place] Immature granulocytes/100 WBC (Bld) 0.5 % Normal [facility] Comment on above: Order Comment: Speci men Type: BLOOD SPECIMENOrdering Facility: [facility] Address: [address] [place] [address] Performed By: #### 1 4196-0, 13352-2 ####[facility] LABCLIA [id number] [place] [address] [place] Lymphocytes (Bld) [#/Vol] 1.48 10*3/uL Normal 1.00-4.00 [facility] Comment on above: Order Comment: Speci men Type: BLOOD SPECIMENOrdering Facility: [facility] Address: [address] [place] [address] Performed By: #### 1 4196-0, 36002-7 ####[facility] LABCLIA [id number] [place] [address] [place] Lymphocytes/100 WBC (Bld) 16.2 % Normal [facility] Comment on above: Order Comment: Speci men Type: BLOOD SPECIMENOrdering Facility: [facility] Address: [address] [place] [address] Performed By: #### 1 4196-0, 04493-4 ####[facility] LABCLIA [id number] [place] [address] [place] MCH (RBC) [Entitic mass] 29.6 pg Normal 26.0-34.0 [facility] Comment on above: Order Comment: Speci men Type: BLOOD SPECIMENOrdering Facility: [facility] Address: [address] [place] [address] Performed By: #### 1 4196-0, 52623-5 ####[facility] LABCLIA [id number] [place] [address] [place] MCHC (RBC) [Mass/Vol] 31.3 g/dL Normal 30.5-36.0 [facility] Comment on above: Order Comment: Speci men Type: BLOOD SPECIMENOrdering Facility: [facility] Address: [address] [place] [address] Performed By: #### 1 4196-0, 32535-9 ####[facility] LABCLIA [id number] [place] [address] [place] MCV (RBC) [Entitic vol] 94.4 fL Normal 80.0-100.0 [facility] Comment on above: Order Comment: Speci men Type: BLOOD SPECIMENOrdering Facility: [facility] Address: [address] [place] [address] Performed By: #### 1 4196-0, 66146-0 ####[facility] LABIA [id number] [place] [address] [place] Monocytes (Bld) [#/Vol] 0.84 10*3/uL Normal <0.87 [facility] Comment on above: Order Comment: Speci men Type: BLOOD SPECIMENOrdering Facility: [facility] Address: [address] [place] [address] Performed By: #### 1 4196-0, 66564-9 ####[facility] LABCLIA [id number] [place] [address] [place] Monocytes/100 WBC (Bld) 9.2 % Normal [facility] Comment on above: Order Comment: Speci men Type: BLOOD SPECIMENOrdering Facility: [facility] Address: [address] [place] [address] Performed By: #### 1 4196-0, 41821-4 ####[facility] LABCLIA [id number] [place] [address] [place] Neutrophils (Bld) [#/Vol] 6.16 10*3/uL Normal 1.45-7.50 [facility] Comment on above: Order Comment: Speci men Type: BLOOD SPECIMENOrdering Facility: [facility] Address: [address] [place] [address] Performed By: #### 1 4196-0, 20270-3 ####[facility] LABCLIA [id number] [place] [address] [place] Neutrophils/100 WBC (Bld) 67.6 % Normal [facility] Comment on above: Order Comment: Speci men Type: BLOOD SPECIMENOrdering Facility: [facility] Address: [address] [place] [address] Performed By: #### 1 4196-0, 34082-5 ####[facility] LABCLIA [id number] [place] [address] [place] Nucleated RBC (Bld) [#/Vol] 10*3/uL Normal <0.01 [facility] Comment on above: Order Comment: Speci men Type: BLOOD SPECIMENOrdering Facility: [facility] Address: [address] [place] [address] Performed By: #### 1 4196-0, 68264-1 ####[facility] LABCLIA [id number] [place] [address] [place] Nucleated RBC/100 WBC (Bld) [Ratio] 0.0 /100 WBC Normal [facility] Comment on above: Order Comment: Speci men Type: BLOOD SPECIMENOrdering Facility: [facility] Address: [address] [place] [address] Performed By: #### 1 4196-0, 12811-1 ####[facility] LABCLIA [id number] [place] [address] [place] Platelet mean volume (Bld) [Entitic vol] 9.8 fL Normal 9.0-12.7 [facility] Comment on above: Order Comment: Speci men Type: BLOOD SPECIMENOrdering Facility: [facility] Address: [address] [place] [address] Performed By: #### 1 4196-0, 88673-1 ####[facility] LABCLIA [id number] [place] [address] [place] Platelets (Bld) [#/Vol] 367 10*3/uL Normal 150-400 [facility] Comment on above: Order Comment: Speci men Type: BLOOD SPECIMENOrdering Facility: [facility] Address: [address] [place] [address] Performed By: #### 1 4196-0, 36402-8 ####[facility] LABCLIA [id number] [place] [address] [place] RBC (Bld) [#/Vol] 3.55 10*6/uL Low 4.20-6.00 [facility] Comment on above: Order Comment: Speci men Type: BLOOD SPECIMENOrdering Facility: [facility] Address: [address] [place] [address] Performed By: #### 1 4196-0, 73087-2 ####[facility] LABCLIA [id number] [place] [address] [place] WBC (Bld) [#/Vol] 9.13 10*3/uL Normal 3.70-11.00 [facility] Comment on above: Order Comment: Speci men Type: BLOOD SPECIMENOrdering Facility: [facility] Address: [address] [place] [address] Performed By: #### 1 4196-0, 69853-3 ####[facility] LABCLIA [id number] [place] [address] [place] CNOVon 12-28-2023 CNOV Normal [facility] Comprehensive metabolic 2000 panelon 12-28-2023 Albumin [Mass/Vol] 3.8 g/dL Low 3.9-4.9 [facility] Comment on above: Order Comment: Speci men Type: BLOOD SPECIMENOrdering Facility: [facility] Address: [address] [place] [address] Performed By: #### 2 4323-8, 41007-5, 2275-4 ####[facility] LABCLIA [id number] [place] [address] [place] ALP [Catalytic activity/Vol] 58 U/L Normal 38-113 [facility] Comment on above: Order Comment: Speci men Type: BLOOD SPECIMENOrdering Facility: [facility] Address: [address] [place] [address] Performed By: #### 2 4323-8, 64241-9, 2275-4 ####[facility] LABCLIA [id number] [place] [address] [place] ALT [Catalytic activity/Vol] 8 U/L Low 10-54 [facility] Comment on above: Order Comment: Speci men Type: BLOOD SPECIMENOrdering Facility: [facility] Address: [address] [place] [address] Performed By: #### 2 4323-8, 98384-0, 2275-4 ####[facility] LABCLIA [id number] [place] [address] [place] Anion gap [Moles/Vol] 10 mmol/L Normal 9-18 [facility] Comment on above: Order Comment: Speci men Type: BLOOD SPECIMENOrdering Facility: [facility] Address: [address] [place] [address] Performed By: #### 2 4323-8, 94645-3, 2275-4 ####[facility] LABCLIA [id number] [place] [address] [place] AST [Catalytic activity/Vol] 10 U/L Low 14-40 [facility] Comment on above: Order Comment: Speci men Type: BLOOD SPECIMENOrdering Facility: [facility] Address: [address] [place] [address] Performed By: #### 2 4323-8, 15942-4, 2275-4 ####[facility] LABCLIA [id number] [place] [address] [place] Bilirubin [Mass/Vol] mg/dL Low 0.2-1.3 [facility] Comment on above: Order Comment: Speci men Type: BLOOD SPECIMENOrdering Facility: [facility] Address: [address] [place] [address] Performed By: #### 2 4323-8, 98593-4, 4 ####[facility] LABCLIA [id number] [place] [address] [place] Calcium [Mass/Vol] 9.0 mg/dL Normal 8.5-10.2 [facility] Comment on above: Order Comment: Speci men Type: BLOOD SPECIMENOrdering Facility: [facility] Address: [address] [place] [address] Performed By: #### 2 4323-8, 67876-5, 4 ####[facility] LABCLIA [id number] [place] [address] [place] Chloride [Moles/Vol] 103 mmol/L Normal 97-105 [facility] Comment on above: Order Comment: Speci men Type: BLOOD SPECIMENOrdering Facility: [facility] Address: [address] [place] [address] Performed By: #### 2 4323-8, 90650-0, 4 ####[facility] LABCLIA [id number] [place] [address] [place] CO2 [Moles/Vol] 22 mmol/L Normal 22-30 [facility] Comment on above: Order Comment: Speci men Type: BLOOD SPECIMENOrdering Facility: [facility] Address: [address] [place] [address] Performed By: #### 2 4323-8, 60284-5, 4 ####[facility] LABCLIA [id number] [address] [address] [place] Creatinine [Mass/Vol] 1.82 mg/dL High 0.73-1.22 [facility] Comment on above: Order Comment: Speci men Type: BLOOD SPECIMENOrdering Facility: [facility] Address: [address] [place] [address] Performed By: #### 2 4323-8, 08562-7, 2276-02 ####[facility] LABCLIA [id number] [place] [address] [place] Creatinine and Glomerular filtration rate.predicted panel (S/P/Bld) 38 mL/min/1.73m??? Low >=60 [facility] Comment on above: Order Comment: Speci men Type: BLOOD SPECIMENOrdering Facility: [facility] Address: [address] [place] [address] Result Comment: Kalani mated Glomerular Filtration Rate [...] actual GFR. Performed By: #### 2 4323-8, 05799-0, 4 ####[facility] LABCLIA [id number] [place] [id number] [place] Glucose [Mass/Vol] 99 mg/dL Normal 74-99 [facility] Comment on above: Order Comment: Speci men Type: BLOOD SPECIMENOrdering Facility: [facility] Address: [address] [place] [address] Result Comment: The [place] [employer] (ADA) provides guidance for cutoff [...] Standards of Medical Care in Diabetes 2016, [place] [employer]. Diabetes Care. 2016.39(Suppl 1). Performed By: #### 2 4323-8, 90684-8, 6-4 ####[facility] LABCLIA [id number] [place] [address] [place] Potassium [Moles/Vol] 4.7 mmol/L Normal 3.7-5.1 [facility] Comment on above: Order Comment: Speci men Type: BLOOD SPECIMENOrdering Facility: [facility] Address: [address] [place] [address] Performed By: #### 2 4323-8, 38926-3, 2275-4 ####[facility] LABIA [id number] [place] [address] [place] Protein [Mass/Vol] 7.6 g/dL Normal 6.3-8.0 [facility] Comment on above: Order Comment: Speci men Type: BLOOD SPECIMENOrdering Facility: [facility] Address: [address] [place] [address] Performed By: #### 2 4323-8, 46295-3, 2275-4 ####[facility] LABCLIA [id number] [place] [address] [place] Sodium [Moles/Vol] 135 mmol/L Low 136-144 [facility] Comment on above: Order Comment: Speci men Type: BLOOD SPECIMENOrdering Facility: [facility] Address: [address] [place] [address] Performed By: #### 2 4323-8, 86817-6, 2276-4 ####[facility] LABCLIA [id number] [place] [address] [place] Urea nitrogen [Mass/Vol] 28 mg/dL High 9-24 [facility] Comment on above: Order Comment: Speci men Type: BLOOD SPECIMENOrdering Facility: [facility] Address: [address] [place] [address] Performed By: #### 2 4323-8, 58382-2, 2276-4 ####[facility] LABCLIA [id number] [place] [address] [place] Ferritin SerPl-mCncon 2023 Ferritin [Mass/Vol] 154.0 ng/mL Normal 30.3-565.7 [facility] Comment on above: Order Comment: Speci men Type: BLOOD SPECIMENOrdering Facility: [facility] Address: [address] [place] [address] Performed By: #### 2 4323-8, 46445-5, 2276-4 ####[facility] LABCLIA [id number] [place] [address] [place] Folate SerPl-mCncon 12-28-19 Folate [Mass/Vol] 14.5 ng/mL Normal >4.7 [facility] Comment on above: Order Comment: Speci men Type: BLOOD SPECIMENOrdering Facility: [facility] Address: [address] [place] [address] Performed By: #### 2 132-9, 2284-8 ####[facility] LABCLIA [id number] [place] [address] [place] HISTORY PHYSICALon HISTORY PHYSICAL Normal [facility] Iron and Iron binding capaci ty panelon 12-28-2023 Iron [Mass/Vol] 23 ug/dL Low 41-186 [facility] Comment on above: Order Comment: Speci men Type: BLOOD SPECIMENOrdering Facility: [facility] Address: [address] [place] [address] Performed By: #### 2 4323-8, 37396-3, 2275-4 ####[facility] LABCLIA [id number] [place] [address] [place] Iron binding capacity [Mass/Vol] 198 ug/dL Low 232-386 [facility] Comment on above: Order Comment: Speci men Type: BLOOD SPECIMENOrdering Facility: [facility] Address: [address] [place] [address] Performed By: #### 2 4323-8, 17520-5, 4 ####[facility] LABCLIA [id number] [place] [address] [place] Iron/TIBC [Molar ratio] 11.6 % Low 15.0-57.0 [facility] Comment on above: Order Comment: Speci men Type: BLOOD SPECIMENOrdering Facility: [facility] Address: [address] [place] [address] Performed By: #### 2 4323-8, 48775-3, 4 ####[facility] LABCLIA [id number] [place] [address] [place] Retics #on 12-28-2023 Reticulocytes (Bld) [#/Vol] 0.91069 10*3/uL Normal 0.018-0.100 [facility] Comment on above: Order Comment: Speci men Type: BLOOD SPECIMENOrdering Facility: [facility] Address: [address] [place] [address] Performed By: #### 1 4196-0, 22040-1 ####[facility] LABCLIA [id number] [place] [address] [place] Reticulocytes (Bld) [#/Vol]o n 12-28-2023 Reticulocytes/100 RBC (Bld) 0.8 % Normal 0.4-2.0 [facility] Comment on above: Order Comment: Speci men Type: BLOOD SPECIMENOrdering Facility: [facility] Address: [address] [place] [address] Performed By: #### 1 4196-0, 05626-9 ####[facility] LABCLIA [id number] [place] [address] [place] Urinalysis complete panel (U )on 12-28-2023 BACTERIA UL 2358.0 uL High Negative [facility] Comment on above: Order Comment: Speci men Type: URINE SPECIMENOrdering Facility: [facility] Address: [address] [place] [address] Performed By: #### 2 4356-8 ####[facility] LABCLIA [id number] [place] [address] [place] Bilirubin Ql (U) Negative Normal Negative [facility] Comment on above: Order Comment: Speci men Type: URINE SPECIMENOrdering Facility: [facility] Address: [address] [place] [address] Performed By: #### 2 4356-8 ####[facility] LABCLIA [id number] [place] [address] [place] Clarity (Unsp spec) Clear Normal Clear [facility] Comment on above: Order Comment: Speci men Type: URINE SPECIMENOrdering Facility: [facility] Address: [address] [place] [address] Performed By: #### 2 4356-8 ####[facility] LABCLIA [id number] [place] [address] [place] Color (U) Yellow Normal Yellow [facility] Comment on above: Order Comment: Speci men Type: URINE SPECIMENOrdering Facility: [facility] Address: [address] [place] [address] Performed By: #### 2 4356-8 ####[facility] LABCLIA [id number] [place] [address] [place] Epithelial cells LM.HPF (Urine sed) [#/Area] None Seen Normal [facility] Comment on above: Order Comment: Speci men Type: URINE SPECIMENOrdering Facility: [facility] Address: [address] [place] [address] Performed By: #### 2 4356-8 ####[facility] LABCLIA [id number] [place] [address] [place] Glucose Test strip (U) [Mass/Vol] Negative Normal Negative [facility] Comment on above: Order Comment: Speci men Type: URINE SPECIMENOrdering Facility: [facility] Address: [address] [place] [address] Performed By: #### 2 4356-8 ####[facility] LABCLIA [id number] [place] [address] [place] Hemoglobin Ql (U) 1+ Abnormal Negative [facility] Comment on above: Order Comment: Speci men Type: URINE SPECIMENOrdering Facility: [facility] Address: [address] [place] [address] Performed By: #### 2 4356-8 ####[facility] LABCLIA [id number] [place] [address] [place] Hyaline casts (Urine sed) [#/Area] 1-3 /LPF Abnormal 0 /LPF [facility] Comment on above: Order Comment: Speci men Type: URINE SPECIMENOrdering Facility: [facility] Address: [address] [place] [address] Performed By: #### 2 4356-8 ####[facility] LABCLIA [id number] [place] [address] [place] Ketones Ql (U) Negative Normal Negative [facility] Comment on above: Order Comment: Speci men Type: URINE SPECIMENOrdering Facility: [facility] Address: [address] [place] [address] Performed By: #### 2 4356-8 ####[facility] LABCLIA [id number] [place] [address] [place] Leukocyte esterase Test strip Ql (U) 3+ Abnormal Negative [facility] Comment on above: Order Comment: Speci men Type: URINE SPECIMENOrdering Facility: [facility] Address: [address] [place] [address] Performed By: #### 2 4356-8 ####[facility] LABCLIA [id number] [place] [address] [place] Nitrite Ql (U) Negative Normal Negative [facility] Comment on above: Order Comment: Speci men Type: URINE SPECIMENOrdering Facility: [facility] Address: [address] [place] [address] Performed By: #### 2 4356-8 ####[facility] LABCLIA [id number] [place] [address] [place] pH (U) 6.0 [pH] Normal <8.5 [facility] Comment on above: Order Comment: Speci men Type: URINE SPECIMENOrdering Facility: [facility] Address: [address] [place] [address] Performed By: #### 2 4356-8 ####[facility] LABCLIA [id number] [place] [address] [place] Protein (U) [Mass/Vol] Negative Normal Negative [facility] Comment on above: Order Comment: Speci men Type: URINE SPECIMENOrdering Facility: [facility] Address: [address] [place] [address] Performed By: #### 2 4356-8 ####[facility] LABCLIA [id number] [place] [address] [place] RBC LM.HPF (Urine sed) [#/Area] 6-10 /HPF Abnormal 0-2 /HPF [facility] Comment on above: Order Comment: Speci men Type: URINE SPECIMENOrdering Facility: [facility] Address: [address] [place] [address] Performed By: #### 2 4356-8 ####[facility] LABIA [id number] [place] [address] [place] Specific gravity (U) [Rel density] 1.013 Normal 1.005-1.030 [facility] Comment on above: Order Comment: Speci men Type: URINE SPECIMENOrdering Facility: [facility] Address: [address] [place] [address] Performed By: #### 2 4356-8 ####[facility] [id number] [place] [address] [place] Urobilinogen Ql (U) 0.2 EU/dL Normal 0.2-1.0 EU/dL [facility] Comment on above: Order Comment: Speci men Type: URINE SPECIMENOrdering Facility: [facility] Address: [address] [place] [address] Performed By: #### 2 4356-8 ####[facility] [id number] [place] [address] [place] WBC LM.HPF (Urine sed) [#/Area] /[HPF] Abnormal 0-5 /HPF [facility] Comment on above: Order Comment: Speci men Type: URINE SPECIMENOrdering Facility: [facility] Address: [address] [place] [address] Performed By: #### 2 4356-8 ####[facility] [id number] [place] [address] [place] Vit B12 SerPl-ncon 12-28- 024 Cobalamin (Vitamin B12) [Mass/Vol] 334 pg/mL Normal 232-1245 [facility] Comment on above: Order Comment: Speci men Type: BLOOD SPECIMENOrdering Facility: [facility] Address: [address] [place] [address] Performed By: #### 2 132-9, 2284-8 ####[facility] LABCLIA [id number] [address] [address] [place] Basic metabolic 2000 panelon 12-27-2023 Anion gap [Moles/Vol] 7 mmol/L Normal 5-16 [facility] Comment on above: Order Comment: Speci men Type: BLOOD SPECIMENOrdering Facility: [facility] Address: [address] [place] [address] Performed By: #### 2 4321-2, 34893-7, 3033-6 ####[facility] [id number] [place] [address] [place]#### 76487-6 ####[facility] LABCLIA [id number] [place] [address] [place] Calcium [Mass/Vol] 9.6 mg/dL Normal 8.5-10.5 [facility] Comment on above: Order Comment: Speci men Type: BLOOD SPECIMENOrdering Facility: [facility] Address: [address] [place] [address] Performed By: #### 2 4321-2, 05451-7, 3033-6 ####[facility] [id number] [place] [address] [place]#### 01785-6 ####[facility] LABCLIA [id number] [place] [id number] [place] Chloride [Moles/Vol] 111 mmol/L High 98-107 [facility] Comment on above: Order Comment: Speci men Type: BLOOD SPECIMENOrdering Facility: [facility] Address: [address] [place] [address] Performed By: #### 2 4321-2, 44125-6, 3033-6 ####[facility] [id number] [place] [address] [place]#### 60931-3 ####[facility] LABCLIA [id number] [place] [id number] [place] CO2 [Moles/Vol] 22 mmol/L Normal 21-32 [facility] Comment on above: Order Comment: Speci men Type: BLOOD SPECIMENOrdering Facility: [facility] Address: [address] [place] [address] Performed By: #### 2 4321-2, 73160-0, 3033-6 ####[facility] [id number] [place] [address] [place]#### 38673-5 ####[facility] LABCLIA [id number] [address] [address] [place] Creatinine [Mass/Vol] 1.88 mg/dL High 0.50-1.40 [facility] Comment on above: Order Comment: Speci men Type: BLOOD SPECIMENOrdering Facility: [facility] Address: [address] [place] [address] Result Comment: Nenita ents receiving either N-Acetylcysteine (NAC) or Metamizole prior to venipuncture, may have falsely depressed results. Performed By: #### 2 4321-2, 89151-0, 3033-6 ####[facility] [id number] [place] [address] [place]#### 94204-2 ####[facility] LABCLIA [id number] [address] [address] [place] Creatinine and Glomerular filtration rate.predicted panel (S/P/Bld) 37 mL/min/1.73m??? Low >=60 [facility] Comment on above: Order Comment: Speci men Type: BLOOD SPECIMENOrdering Facility: [facility] Address: [address] [place] [address] Result Comment: Kalani mated Glomerular Filtration Rate [...] actual GFR. Performed By: #### 2 4321-2, 00665-9, 3034-04 ####[facility] [id number] [address] [place]#### 63835-5 ####[facility] LABCLIA [id number] [place] [address] [place] Glucose [Mass/Vol] 94 mg/dL Normal 70-100 [facility] Comment on above: Order Comment: Speci men Type: BLOOD SPECIMENOrdering Facility: [facility] Address: [address] [place] [address] Result Comment: The [place] Diabetes Association (ADA) provides guidance for cutoff [...] Standards of Medical Care in Diabetes 2016, [place] Diabetes Association. Diabetes Care. 2016.39(Suppl 1). Results may be falsely elevated after the administration of Sulfapyridine. Results may be falsely depressed after the administration of Sulfasalazine. Performed By: #### 2 4321-2, 59613-5, 3034-04 ####[facility]ORY[facility] [id number] [place] [address] [place]#### 40260-3 ####[facility] LABCL[facility] [id number] [place] [address] [place] Potassium [Moles/Vol] 5.1 mmol/L Normal 3.5-5.1 [facility] Comment on above: Order Comment: Speci men Type: BLOOD SPECIMENOrdering Facility: [facility] Address: [address] [place] [address] Performed By: #### 2 4321-2, 12891-8, 303-6 ####[facility] [id number] [place] [address] [place]#### 84717-8 ####[facility] LABCLIA [id number] [place] [address] [place] Sodium [Moles/Vol] 140 mmol/L Normal 136-145 [facility] Comment on above: Order Comment: Speci men Type: BLOOD SPECIMENOrdering Facility: [facility] Address: [address] [place] [address] Performed By: #### 2 4321-2, 65924-7, 6 ####[facility]ORY[facility] [id number] [place] [address] [place]#### 95204-7 ####[facility] LABCLIA [id number] [place] [address] [place] Urea nitrogen [Mass/Vol] 34 mg/dL High 7-26 [facility] Comment on above: Order Comment: Speci men Type: BLOOD SPECIMENOrdering Facility: [facility] Address: [address] [place] [address] Performed By: #### 2 4321-2, 16885-2, 6 ####[facility] [id number] [place] [address] [place]#### 64066-1 ####[facility] LABCL[facility] [id number] [place] [address] [place] CBC panel Auto (Bld)on 02-05 -2024 Erythrocyte distribution width (RBC) [Ratio] 15.0 % Normal 11.5-15.0 [facility] Comment on above: Order Comment: Speci men Type: BLOOD SPECIMEN [facility] Address: [address] [place] [address] Performed By: #### 5 8410-2 #### [facility] CLIA [id number] [address] [place] [address] [place] #### 17218-1 #### [facility] CLIA [id number] [address] [place] [address] [place] Hematocrit (Bld) [Volume fraction] 33.3 % Low 39.0-51.0 [facility] Comment on above: Order Comment: Speci men Type: BLOOD SPECIMEN [facility] Address: [address] [place] [address] Performed By: #### 5 8410-2 #### [facility] CLIA [id number] [address] [place] [address] [place] #### 97811-1 #### [facility] CLIA [id number] [address] [place] [address] [place] Hemoglobin (Bld) [Mass/Vol] 10.8 g/dL Low 13.0-17.0 [facility] Comment on above: Order Comment: Speci men Type: BLOOD SPECIMEN [facility] Address: [address] [place] [address] Performed By: #### 5 8410-2 #### [facility] CLIA [id number] [address] [place] [address] [place] #### 12521-5 #### [facility] CLIA [id number] [address] [place] [address] [place] MCH (RBC) [Entitic mass] 29.0 pg Normal 26.0-34.0 [facility] Comment on above: Order Comment: Speci men Type: BLOOD SPECIMEN [facility]: [facility] Address: [address] [place] [address] Performed By: #### 5 8410-2 #### [facility] CLIA [id number] [address] [place] [address] [place] #### 88557-9 #### [facility] CLIA [id number] [address] [place] [address] [place] MCHC (RBC) [Mass/Vol] 32.4 g/dL Normal 30.5-36.0 [facility] Comment on above: Order Comment: Speci men Type: BLOOD SPECIMEN [facility]: [facility] Address: [address] [place] [address] Performed By: #### 5 8410-2 #### [facility] CLIA [id number] [address] [place] [address] [place] #### 03410-4 #### [facility] CLIA [id number] [address] [place] [address] [place] MCV (RBC) [Entitic vol] 89.5 fL Normal 80.0-100.0 [facility] Comment on above: Order Comment: Speci men Type: BLOOD SPECIMEN [facility]ing [facility]: [facility] Address: [address] [place] [address] Performed By: #### 5 8410-2 #### [facility] CLIA [id number] [address] [place] [address] [place] #### 55799-7 #### [facility] CLIA [id number] [address] [place] [address] [place] Nucleated RBC (Bld) [#/Vol] 10*3/uL Normal <0.01 [facility] Comment on above: Order Comment: Speci men Type: BLOOD SPECIMEN [facility] Address: [address] [place] [address] Performed By: #### 5 8410-2 #### [facility] CLIA [id number] [address] [place], [place] [address] [place] #### 72787-0 #### [facility] CLIA [id number] [address] [place] [address] [place] Platelet mean volume (Bld) [Entitic vol] 9.2 fL Normal 9.0-12.7 [facility] Comment on above: Order Comment: Speci men Type: BLOOD SPECIMEN [facility] Address: [address] [place] [address] Performed By: #### 5 8410-2 #### [facility] CLIA [id number] [address] [place] [address] [place] #### 47557-1 #### [facility] CLIA [id number] [address] [place] [address] [place] Platelets (Bld) [#/Vol] 352 10*3/uL Normal 150-400 [facility] Comment on above: Order Comment: Speci men Type: BLOOD SPECIMEN [facility] Address: [address] [place] [address] Performed By: #### 5 8410-2 #### [facility] CLIA [id number] [address] [place] [address] [place] #### 14298-3 #### [facility] CLIA [id number] [address] [place] [address] [place] RBC (Bld) [#/Vol] 3.72 10*6/uL Low 4.20-6.00 [facility] Comment on above: Order Comment: Speci men Type: BLOOD SPECIMEN [facility] Address: [address] [place] [address] Performed By: #### 5 8410-2 #### [facility] CLIA [id number] [address] [place] [address] [place] #### 44367-7 #### [facility] CLIA [id number] [address] [place] [address] [place] WBC (Bld) [#/Vol] 9.51 10*3/uL Normal 3.70-11.00 [facility] Comment on above: Order Comment: Speci men Type: BLOOD SPECIMEN [facility] Address: [address] [place] [address] Performed By: #### 5 8410-2 #### [facility] CLIA [id number] [address] [place] [address] [place] #### 42287-6 #### [facility] CLIA [id number] [address] [place] [address] [place] CNCOon 12-27-2023 CNCO Letter Text Normal [facility] CNPNon 12-27-2023 CNPN Normal [facility] HbA1c (Bld)on 12-27-2023 Average glucose Estimated from glycated hemoglobin (Bld) [Mass/Vol] 114 mg/dL Normal [facility] Comment on above: Order Comment: Speci men Type: BLOOD SPECIMENOrdering Facility: [facility] Address: [address] [place] [address] Result Comment: eAG: (Estimated average glucose) is a calculated value from HgbA1c and is manufacturer representative of the average blood glucose level in the last 2-3 month period. Performed By: #### 5 8410-2 ####[facility] [id number] [place] [address] [place]#### 88349-7 ####[facility] LABCL[facility] [id number] [place] [address] [place] HbA1c (Bld) [Mass fraction] 5.6 % Normal 4.3-5.6 [facility] Comment on above: Order Comment: Speci men Type: BLOOD SPECIMENOrdering Facility: [facility] Address: [address] [place] [address] Result Comment: [place] Diabetes Association guidelines indicate that patients with HgbA1c in the range 5.7-6.4% are at increased risk for development of diabetes, and intervention by lifestyle modification may be beneficial. HgbA1c greater or equal to 6.5% is considered diagnostic of diabetes. Performed By: #### 5 8410-2 ####[facility] [id number] [place] [address] [place]#### 82121-3 ####[facility] LABCL[facility] [id number] [place] [address] [place] NT[facility]proBNP [facility]Pl[facility] Natriuretic peptide.B prohormone N-Terminal [Mass/Vol] 149 pg/mL High <125 [facility] Comment on above: Order Comment: Speci men Type: BLOOD SPECIMENOrdering Facility: [facility] Address: [address] [place] [address] Performed By: #### 2 4321-2, 79851-1, 3034-04 ####[facility] [id number] [place] [address] [place]#### 29267-1 ####[facility] LABCL[facility] [id number] [address] [place] Prealb SerPl-ncon 12-27-19 Prealbumin [Mass/Vol] 16 mg/dL Low 20-40 [facility] Comment on above: Order Comment: Speci men Type: BLOOD SPECIMENOrdering Facility: [facility] Address: [address] [place] [address] Performed By: #### 2 4321-2, 71046-3, 3034-04 ####[facility] [id number] [place] [address] [place]#### 84948-4 ####[facility] LABCLIA [id number] [place] [address] [place] STAPH AUREUS PCRon S. aureus and MRSA panel CORIN+probe (Nose) Normal Negative [facility] Comment on above: Order Comment: Speci men Type: SWAB OF INTERNAL NOSEOrdering Facility: [facility] Address: [address] [place] [address] Result Comment: Nega tive for Staphylococcus aureus by PCR. Negative for MRSA by PCR Performed By: #### S APCR ####[facility] [id number] [place] [address] [place] Transferrin SerPl-mCncon Transferrin [Mass/Vol] 164 mg/dL Low 180-329 [facility] Comment on above: Order Comment: Speci men Type: BLOOD SPECIMENOrdering Facility: [facility] Address: [address] [place] [address] Performed By: #### 2 4321-2, 23228-2, 3034-6 ####[facility] [id number] [place] [address] [place]#### 99545-2 ####[facility]CL[facility] [id number] [address] [place] CNOVon 12-20-2023 CNOV Office Visit (ORMMMB ) MIROSLAVA PERALTA ([id number]) 1950 [place] [employer] Date Time Provider Department 12/20/23 3:00 PM REMY LEMUS ORMB During your visit today, we recorded the following information about you: Pulse Blood pressure Weight Height 89/minute 137/66 96.2 kg 1.803 m [place], RN 12/20/2023 3:04 PM Signed Patient is a [...] 12/20/2023 6:39 PM Signed Remy Lemus MD [facility] Orthopaedic Surgery - Orthopaedic Spine Surgeon [address] [facility], [address], [address], [facility] [address], [place] [address] Phone: [phone] ([phone]) FAX: [phone] Spine Surgery Outpatient Note Service Date: 12/20/2023 [...] transfusion HTN (hypertension) Insomnia, unspecified Leukocytosis 11/22/1986 [facility] admission - thought leukemia and he refused [...] No Com (more content not included)... Normal [facility] CT CERVICAL SPINE WO IVCONon 12-17-2023 CT CERVICAL SPINE WO IVCON Normal [facility] CNOVon 12-14-2023 CNOV Office Visit (ORMMMB ) MIROSLAVA PERALTA ([id number]) 1950 [place] [employer] Date Time Provider Department 12/14/23 3:00 PM REMY LEMUS During your visit today, we recorded the [...] 12/15/2023 9:33 PM Signed Remy Lemus MD [facility] Orthopaedic Surgery - Orthopaedic Spine Surgeon [address] [facility], [address], [place] [address] Phone: [phone] ([phone]) FAX: [phone] Spine Surgery Outpatient Note Service Date: 12/14/2023 Referring Provider: Gudelia Paul [place] [id number] Chief Complaint: Gait imbalance, bilateral upper and [...] transfusion HTN (hypertension) Insomnia, unspecified Leukocytosis 11/22/1986 [facility] admission - thought leukemia and he refused tests Overflow incontinence of urine S/P hip replacement PAST SURGICAL HISTORY Procedure Laterality Date AR (more content not included)... Normal [facility] XR CERVICAL 4V AP/LAT/FLX/EX Ton 12-14-2023 XR CERVICAL 4V AP/LAT/FLX/EXT * * *Final Report* * * DATE OF EXAM: Dec 14 2023 3:08PM RHX 5310 - XR CERVICAL 4V AP/LAT/FLX/EXT / PROCEDURE REASON: Cervical myelopathy (HCC) * * * * Physician Interpretation * [...] disease most marked at the L4-5 level. Bicycle Rental Clerk: AMANDA Transcribe Date/Time: Dec 16 2023 7:27A Dictated by : CALISTA DICKINSON MD This examination was interpreted and the report reviewed and electronically signed by: CALISTA DICKINSON MD on Dec 16 2023 7:30AM EST [id number] [facility] XR LUMBAR 2V AP/LATon 2023 XR LUMBAR [...] disease most marked at the L4-5 level. Bicycle Rental Clerk: AMANDA Transcribe Date/Time: Dec 16 2023 7:27A Dictated by : CALISTA DICKINSON MD This examination was interpreted and the report reviewed and electronically signed by: CALISTA DICKINSON MD on Dec 16 2023 7:30AM EST [id number] [facility] MIROSLAVA PERALTA ([id number]) 1950 [place] [place]* Date Time Provider Department 12/13/23 LEIDARACHEALREMY [facility] During your visit today, we recorded [...] Encounter Status:Closed by VERO KC on 12/13/23 [facility] CNOVhelen 12-08-2023 CNOV Normal [facility] Bharath 12-03-2023 CNPN Telephone ([facility]) MIROSLAVA PERALTA ([id number]) 1950 [place] Date Time Provider Department 12/03/23 GUDELIA SAMUEL [...] Status:Closed by NURIS NOLEN on 12/08/23 Normal [facility] MRI CERVICAL SPINE WO IVCONo n 12-01-2023 MRI CERVICAL SPINE WO IVCON Normal [facility] MRI LUMBAR SPINE WO IVCONon 12-01-2023 MRI LUMBAR SPINE WO IVCON Normal [facility] CNPNon 10-29-2023 CNPN Normal [facility] CNOVon 10-28-2023 CNOV Normal [facility] CNPNon 10-21-2023 CNPN Telephone (AGPOB1) MIROSLAVA PERALTA ([id number]) 1950 [employer]* Date Time Provider Department 10/21/23 GUDELIA SAMUEL During your visit today, we recorded the following information about you: Lonny Pilar 10/21/2023 1:46 PM Signed Pt was a STAT MRI that I was able to schedule for today 10/21/23. I received a call from Jocelin stating that they decided that they do not want to go to the appt today and would rather wait on an appt closer to home. Sent message to alumni secretary Allergies As of Date: 10/21/2023 Noted [...] hip impla*03/31/2023 04/05/2023 Encounter Status:Closed by PILAR SALINAS on 10/21/23 [facility] CNOVon 10-20-2023 CNOV Office Visit (AGPOB1 ) MIROSLAVA PERALTA ([id number]) 1950 M [facility] Date Time Provider Department 10/20/23 2:45 PM GUDELIA SAMUELB1 During your visit today, we recorded the following information about you: Respiration Weight Height 15/minute 95.3 kg 1.803 m Gudelia Samuel MD 10/21/2023 11:29 PM Signed ORTHOPAEDIC OFFICE NOTE CHIEF COMPLAINT: Follow-up right periprosthetic femur fracture HISTORY OF PRESENT ILLNESS: Miroslava Landa Fabian is a 73 year old male who [...] transfusion HTN (hypertension) Insomnia, unspecified Leukocytosis 11/22/1986 [facility] admission - thought leukemia and he refused [...] General A (more content not included)... Normal [facility] Bacteria Ur Culton 3 Bacteria identified Cx Nom (U) Abnormal [facility] Comment on above: Performed By: #### 6 30-4 ####[facility] [id number] [place] [address] [place] CNOVon 09-28-2023 CNOV Normal [facility] CNPNon 09-28-2023 CNPN Normal [facility] CT FLANK WO IVCONon 07-06-20 [facility] URINE CULTUREon 06-30-2023 Bacteria identified Cx Nom (U) <10,000 CFU/ml Mixed microbiota Abnormal [facility] LAURO BY IFA SCREENon 06-29-20 LAURO Pattern Nuclear fine speckled Cl [facility] LAURO Titer 1:160 [facility] Nuclear Ab IF (S) [Titer] Positive Abnormal Negative [facility] B. burgdorferi IgG and IgM p michelle (S)on 06-29-2023 B. burgdorferi IgG+IgM Qn (S) Equivocal Abnormal Negative [facility] C-REACTIVE PROTEIN (CRP)on 0 06-29-2023 CRP [Mass/Vol] 3.3 mg/dL High <0.9 mg/dL [facility] CBC W Auto Differential pane l (Bld)on 06-29-2023 Basophils (Bld) [#/Vol] 0.08 10*3/uL <0.11 k/uL [facility] Basophils/100 WBC (Bld) 0.9 % [facility] Differential cell count method Nom (Bld) Auto [facility] Eosinophils (Bld) [#/Vol] 0.32 10*3/uL <0.46 k/uL [facility] Eosinophils/100 WBC (Bld) 3.4 % [facility] Erythrocyte distribution width (RBC) [Ratio] 16.0 % High 11.5 - 15.0 % [facility] Hematocrit (Bld) [Volume fraction] 40.7 % 39.0 - 51.0 % [facility] Hemoglobin (Bld) [Mass/Vol] 13.0 g/dL 13.0 - 17.0 g/dL [facility] Immature granulocytes (Bld) [#/Vol] <0.10 k/uL [facility] Immature granulocytes/100 WBC (Bld) 0.2 % [facility] Lymphocytes (Bld) [#/Vol] 1.35 10*3/uL 1.00 - 4.00 k/uL [facility] Lymphocytes/100 WBC (Bld) 14.5 % [facility] MCH (RBC) [Entitic mass] 30.4 pg 26.0 - 34.0 pg [facility] MCHC (RBC) [Mass/Vol] 31.9 g/dL 30.5 - 36.0 g/dL [facility] MCV (RBC) [Entitic vol] 95.1 fL 80.0 - 100.0 fL [facility] Monocytes (Bld) [#/Vol] 1.07 10*3/uL High <0.87 k/uL [facility] Monocytes/100 WBC (Bld) 11.5 % [facility] Neutrophils (Bld) [#/Vol] 6.46 10*3/uL 1.45 - 7.50 k/uL [facility] Neutrophils/100 WBC (Bld) 69.5 % [facility] Nucleated RBC (Bld) [#/Vol] <0.01 k/uL [facility] Nucleated RBC/100 WBC (Bld) [Ratio] 0.0 /100 WBC [facility] Platelet mean volume (Bld) [Entitic vol] 9.4 fL 9.0 - 12.7 fL [facility] Platelets (Bld) [#/Vol] 369 10*3/uL 150 - 400 k/uL [facility] RBC (Bld) [#/Vol] 4.28 10*6/uL 4.20 - 6.0 0 m/uL [facility] WBC (Bld) [#/Vol] 9.30 10*3/uL 3.70 - 11. 00 k/uL [facility] Comprehensive metabolic 2000 panelon 06-29-2023 Albumin [Mass/Vol] 4.2 g/dL 3.9 - 4.9 g/dL [facility] ALP [Catalytic activity/Vol] 76 U/L 38 - 113 U/L [facility] ALT [Catalytic activity/Vol] 9 U/L Low 10 - 54 U/L [facility] Anion gap [Moles/Vol] 13 mmol/L 9 - 18 mmol/L [facility] AST [Catalytic activity/Vol] 13 U/L Low 14 - 40 U/L [facility] Bilirubin [Mass/Vol] 0.2 mg/dL 0.2 - 1.3 mg/dL [facility] Calcium [Mass/Vol] 10.0 mg/dL 8.5 - 10. 2 mg/dL [facility] Chloride [Moles/Vol] 99 mmol/L 97 - 105 mmol/L [facility] CO2 [Moles/Vol] 22 mmol/L 22 - 30 mmol/L [facility] Creatinine [Mass/Vol] 0.83 mg/dL 0.73 - 1.22 mg/dL [facility] Estimated Glomerular Filtration Rate 92 mL/min/1.73m >=60 mL/min/1.73m [facility] Glucose [Mass/Vol] 94 mg/dL 74 - 99 mg/dL [facility] Potassium [Moles/Vol] 4.1 mmol/L 3.7 - 5.1 mmol/L [facility] Protein [Mass/Vol] 7.8 g/dL 6.3 - 8.0 g/dL [facility] Sodium [Moles/Vol] 134 mmol/L Low 136 - 144 mmol/L [facility] Urea nitrogen [Mass/Vol] 21 mg/dL 9 - 24 mg/dL [facility] ESR Westergren method (Bld) [Velocity]on 06-29-2023 ESR (Bld) [Velocity] 35 mm/h High 0 - 15 mm/hr [facility] TOX SCREEN ROUT URon 023 Amphetamines Confirm (U) [Mass/Vol] Negative Negative [facility] Barbiturates Urine Negative Negative [facility] Benzodiazepines Urine Negative Negative [facility] Cannabinoids, Urine Negative Negative [facility] Cocaine Ql (U) Negative Negative [facility] Ethanol (U) [Mass/Vol] <11 mg/dL [facility] Opiates Screen Ql (U) Negative Negative [facility] oxyCODONE cutoff Screen (U) [Mass/Vol] Positive Abnormal Negative [facility] Phencyclidine Ql (U) Negative Negative [facility] Urinalysis complete panel (U )on 06-29-2023 Bacteria LM.HPF (Urine sed) [#/Area] Rare Abnormal None Seen /HPF [facility] Bilirubin Ql (U) Negative Negative [facility] Calcium Oxalate Crystals Few Abnormal None Seen /HPF [facility] Clarity (Unsp spec) Clear Clear [facility] Color (U) Light Yellow Yellow [facility] Epithelial cells LM.HPF (Urine sed) [#/Area] Few [facility] Glucose Test strip (U) [Mass/Vol] Negative Trace, Negative [facility] Hemoglobin Ql (U) Negative Negative, Trace [facility] Ketones Ql (U) Negative Trace, Negative [facility] Leukocyte esterase Test strip Ql (U) 500 Balbir/uL Abnormal Negative, 25 Balbir/uL [facility] Nitrite Ql (U) Negative Negative [facility] pH (U) 6.5 [pH] 5.0 - 8.0 [facility] Protein (U) [Mass/Vol] Negative Trace, Negative [facility] RBC LM.HPF (Urine sed) [#/Area] 3-5 /HPF Abnormal 0-3 /HPF [facility] Specific gravity (U) [Rel density] 1.018 1.005 - 1.030 [facility] Urobilinogen Ql (U) Negative Negative [facility] WBC LM.HPF (Urine sed) [#/Area] /[HPF] Abnormal 0-5 /HPF [facility] UA DIP, URINE (POC)on 2022 BILIRUBIN UA (POCT) Negative Negative [facility] CLARITY UA (POCT) Clear [facility] COLOR UA (POCT) Yellow [facility] GLUCOSE UA (POCT) Negative Negative mg/dL [facility] HEMOGLOBIN/BLOOD UA (POCT) Trace-intact Abnormal Negative [facility] KETONE UA (POCT) Negative Negative mg/dL [facility] LEUKOCYTES UA (POCT) Moderate Abnormal Negative [facility] NITRITE UA (POCT) Negative Negative [facility] PH UA (POCT) 6.5 4.5 - 8.0 [facility] Protein Ql (U) Negative Negative mg/dL [facility] SPECIFIC GRAVITY UA (POCT) 1.020 1.005 - 1.030 [facility] UROBILINOGEN UA (POCT) 0.2 E.U./dL Normal E.U./dL [facility] UA DIP, URINE (POC)on 2022 BILIRUBIN UA (POCT) Negative Negative [facility] CLARITY UA (POCT) Cloudy [facility] COLOR UA (POCT) Light yellow [facility] GLUCOSE UA (POCT) Negative Negative mg/dL [facility] HEMOGLOBIN/BLOOD UA (POCT) Moderate Abnormal Negative [facility] KETONE UA (POCT) Negative Negative mg/dL [facility] LEUKOCYTES UA (POCT) Large Abnormal Negative [facility] NITRITE UA (POCT) Positive Abnormal Negative [facility] PH UA (POCT) 7.0 4.5 - 8.0 [facility] Protein Ql (U) 100 mg/dL Abnormal Negative mg/dL [facility] SPECIFIC GRAVITY UA (POCT) 1.020 1.005 - 1.030 [facility] UROBILINOGEN UA (POCT) 0.2 E.U./dL Normal E.U./dL [facility] MRI PITUITARY WO/W IVCONon 0 12-08-2022 MRI PITUITARY WO/W IVCON * * *Final Report* * * DATE OF EXAM: Dec 08 2022 12:24PM [facility] 0314 - MRI PITUITARY WO/W IVCON [...] gland. The infundibulum is within normal limits.. Bicycle Rental Clerk: AMANDA Transcribe Date/Time: Dec 08 2022 12:27P Dictated by : CONNIE ANDRE MD This examination was interpreted and the report reviewed and electronically signed by: FOZIA ECKERT MD on Dec 08 2022 12:59PM EST [id number] [facility] NURSING PROGon 12-08-2022 NURSING PROG HNO ID: [id number] Author: Sabine Oneil RN Service: Nursing Author [...] December 08, 2022 TIME: 11:47 AM Other: [facility] 11-16-2022 [facility] HNO ID: [id number] Author: RT Breann(R) Service: Radiology Author Type: [...] RT Breann(R) November 16, 2022 9:57 AM [facility] 11-16-2022 [facility] HNO ID: [id number] Author: Mary Aguilar MD Service: Hospital Medicine [...] 7-8-month. M (more content not included)... Normal [facility] MRI THORACIC SPINE WO IVCONo n [...] and assume there are 5 lumbar-type vertebrae. Bicycle Rental Clerk: AMANDA Transcribe Date/Time: Nov 16 2022 1:31P Dictated by : LENA ROBERT MD This examination was interpreted and the report reviewed and electronically signed by: LENA ROBERT MD on Nov 16 2022 1:48PM EST [id number] [facility] NURSING PROGon 11-16-2022 NURSING PROG HNO ID: [id number] Author: Mel Nazario RN Service: Nursing Author Type: Registered Nurse Type: Nursing Progress Note Filed: 11/16/2022 7:03 PM Note Text: Daily note: 1811: Discharge instructions reviewed with patient, states understanding. IV heplock removed. 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 1901: Discharge off PK3 via wheelchair with belongings. [facility] THERAPY NTon 11-16-2022 THERAPY NT HNO ID: [id number] Author: Jesi Mead, CHINYERER/L Service: Occupational Therapy Author Type: Occupational Therapist Type: Therapy (PT/OT/Speech/Resp) Filed: 11/16/2022 3:36 PM Note Text: Occupational Therapy Evaluation SERVICE DATE: 11/16/2022 SERVICE TIME: 0951 to 1020 ROOM: [place] [address] Transfer From [facility] Evaluation, Intractable LBP, Diarrhea, Urinary [...] Handled Shoe Horn;Long Handled Sponge;Wheeled Walker;Elastic Shoe Laces;Ground Source Heat Pump Technician;Shower Chair OT 6 Clicks Score: 21 Precautions/Activity Restrictions: Spine;Fall Risk;Bed/Chair Alarm Current Hospital Course: Transfer From [facility] Evaluation, Intractable LBP, Diarrhea, Urinary [...] to time 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 [facility] THERAPY NT HNO ID: [id number] Author: Joelle Harris PT Service: Physical Therapy Author Type: Physical Therapist Type: Therapy (PT/OT/Speech/Resp) Filed: 11/16/2022 1:43 PM Note Text: Physical Therapy Evaluation SERVICE DATE: 11/16/2022 SERVICE TIME: 1017 to 1042 ROOM: [place] [address] Recommended Discharge Disposition: Home PT Recommended Discharge [...] balance without handhold support, limited postural sway -[facility]: 7: Walk 25 feet or more [...] symptoms and signs-other Interventions Provided: Evaluation;Gait Training (11577) $ Evaluation-Low (70414) Billed Units: 1 unit Gait Training (19242) Treatment Minutes: 10 $ Gait Training (10574) Billed Units: 1 unit Training AND education [...] details for this therapy evaluation/treatment. SIGNATURE: Joelle Harris, PT PATIENT NAME: Miroslava Peralta DATE: November 16, 2022 TIME: 1:42 PM [facility] CONSULTon 12-25-2022 CONSULT HNO ID: [id number] Author: Nayeli Flores APRN.MYRA Service: Gastroenterology Author Type: Nurse Practitioner Type: [...] 1991 Hip arthritis HTN (hypertension) Leukocytosis 1986 [place] admission - thought leukemia and he refused [...] See Comm (more content not included)... Normal [facility] CULTURE, YERSINIAon 11-15-20 CULTURE, YERSINIA Negative Normal [facility] Comment on above: Performed By: #### Y ERCUL ####[facility] [id number] [place] [address] [place] Calprotectin Stl-[facility] - Calprotectin (Stl) [Mass/Mass] 40.3 mg/kg Normal 0-50 [facility] Comment on above: Order Comment: Speci men Type: STOOL SPECIMEN Ordering Facility: [facility] Address: [address] [id number] Result Comment: INTE RPRETIVE INFORMATION: Calprotectin, Fecal <50.0 mg/kg : Normal 50.0-120.0 mg/kg: Borderline. Test should be re-evaluated in 4-6 wks. >120.0 mg/kg: Abnormal Performed By: #### 3 8445-3 #### [facility] CLIA [id number] [address] [place] [address] [place] G lamblia+Cryptosp Ag Stl Ql IAon 11-15-2022 G. lamblia+Cryptospor idium sp Ag IA Ql (Stl) CRYPTOSPORIDIUM ANTIGEN BY EIA: Negative for Cryptosporidium by EIA. GIARDIA ANTIGEN BY EIA: Negative for Giardia lamblia by EIA. Normal [facility] Comment on above: Performed By: #### 4 8059-0 ####[facility] [id number] [address] [place] Gastrointestinal pathogens i dentified CORIN+probe Nom (Stl)on 11-15-2022 Campylobacter sp DNA CORIN+probe Nom (Unsp spec) Not detected Normal Not Detected [facility] Comment on above: Order Comment: Speci men Type: STOOL SPECIMEN Ordering Facility: [facility] Address: [address] [place] [address] Performed By: #### 7 9390-1 #### [facility] CLIA [id number] [address] [place] [address] [place] Salmonella sp DNA CORIN+probe Ql (Unsp spec) Not detected Normal Not Detected [facility] Comment on above: Order Comment: Speci men Type: STOOL SPECIMEN Ordering Facility: [facility] Address: [address] [place] [address] Performed By: #### 7 9390-1 #### [facility] CLIA [id number] [address] [place] [address] [place] Shiga toxin stx gene CORIN+probe Nom (Unsp spec) Not detected Normal Not Detected [facility] Comment on above: Order Comment: Speci men Type: STOOL SPECIMEN Ordering Facility: [facility] Address: [address] [place] [address] Performed By: #### 7 9390-1 #### [facility] CLIA [id number] [address] [place] [address] [place] Shigella sp DNA CORIN+probe Ql (Unsp spec) Not detected Normal Not Detected [facility] Comment on above: Order Comment: Speci men Type: STOOL SPECIMEN Ordering Facility: [facility] Address: [address] [place], [place] [address] Performed By: #### 7 9390-1 #### [facility] CLIA [id number] [address] [facility] [id number] [id number] [place] HISTORY PHYSICALon HISTORY PHYSICAL HNO ID: [id number] Author: Quin Okeefe MD Service: Hospital Medicine Author Type: Physician Type: HANDP Filed: 11/15/2022 4:17 AM Note Text: DEPARTMENT OF HOSPITAL MEDICINE HISTORY AND PHYSICAL EXAM SERVICE DATE: 11/14/2022 Code Status: Not on file SERVICE TIME: 10:29 PM Primary Care Physician: Marbella Zaidi PA-C NIGHT AND WEEKEND COVERAGE: [place] COVERAGE:Jeopardy: [phone], please page me (attending) for patient issues. [phone], please call Team 4 pager [phone] Subjective CHIEF COMPLAINT: Lower extremities numbness and [...] chest wall pain due to rib fractures. [facility] ED staff discussed with neurosurgery on-call at [facility] and recommended MRI of lumbar spine and to transfer patient to [facility] once bed available for evaluation by neurosurgery [...] 1991 Hip arthritis HTN (hypertension) Leukocytosis 1986 [place] admission - thought leukemia and he refused [...] use: No Comment: Quit drugs in ~. PRIOR TO ADMISSION MEDICATIONS: gabapentin (NEURONTIN) 300 [...] tablet, Rfl: (more content not included)... Normal [facility] HbA1c (Bld)on 11-15-2022 Average glucose Estimated from glycated hemoglobin (Bld) [Mass/Vol] 105 mg/dL Normal [facility] Comment on above: Order Comment: Fernanda franks Type: BLOOD SPECIMEN Ordering Facility: [facility] Address: [address] [place] [address] Result Comment: eAG: (Estimated average glucose) is a calculated value from HgbA1c and is manufacturer representative of the average blood glucose level in the last 2-3 month period. Performed By: #### 5 5454-3 #### [facility] CLIA [id number] [address] [place], [place] [address] [place] [address] [place] HbA1c (Bld) [Mass fraction] 5.3 % Normal 4.3-5.6 [facility] Comment on above: Order Comment: Fernanda franks Type: BLOOD SPECIMEN Ordering Facility: [facility] Address: [address] [address] Result Comment: Gus [place] Diabetes Association guidelines indicate that patients with HgbA1c in the range 5.7-6.4% are at increased risk for development of diabetes, and intervention by lifestyle modification may be beneficial. HgbA1c greater or equal to 6.5% is considered diagnostic of diabetes. Performed By: #### 5 5454-3 #### [facility] CLIA [id number] [facility] [address] [place] NURSING PROGon 11-15-2022 NURSING PROG HNO ID: [id number] Author: Donna Paula RN Service: Nursing Author [...] day team rec meds in the morning. [facility] NURSING PROG HNO ID: [id number] Author: Skylar Hernandez RN Service: ? Author [...] preformed and call wheeler within reach. Normal [facility] Reagin and Treponema pallidu m IgG and IgM [Interp]on 11-15-2022 SYPHILIS INTERPRETATION Cannot exclude recent Treponemal infection if specimen collected within 7-10 days after appearance of suspect lesions or 2-3 weeks after an exposure. Clinical correlation is required. Normal [facility] Comment on above: Order Comment: Speci men Type: BLOOD SPECIMEN Ordering Facility: [facility] Address: [address] [place] [place] [id number] Performed By: #### 7 3752-8 #### [facility] CLIA [id number] [facility] [address] [place] T. pallidum IgG+IgM IA Ql (S) Non-Reactive Normal Nonreactive [facility] Comment on above: Order Comment: Speci men Type: BLOOD SPECIMEN Ordering Facility: [facility] Address: [address] Performed By: #### 7 3752-8 #### [facility] CLIA [id number] [address] [facility] [id number] [address] [facility] [place] Vit B12 SerPl-mCncon 11-15- 022 Cobalamin (Vitamin B12) [Mass/Vol] 981 pg/mL Normal 232-1245 [facility] Comment on above: Order Comment: Speci men Type: BLOOD SPECIMEN Ordering Facility: [facility] Address: [address] Performed By: #### 2 4323-8, 1988-03 #### [facility] CLIA [id number] [address] [place] [place] [id number] [place] CBC panel Auto (Bld)on 11-14 Erythrocyte distribution width (RBC) [Ratio] 12.3 % Normal 11.5-15.0 [facility] Comment on above: Order Comment: Speci men Type: BLOOD SPECIMENOrdering Facility: [facility] Address: [address] Performed By: #### 5 8410-2 ####[facility] [id number] [address] [place] Hematocrit (Bld) [Volume fraction] 43.3 % Normal 39.0-51.0 [facility] Comment on above: Order Comment: Speci men Type: BLOOD SPECIMENOrdering Facility: [facility] Address: [address] Performed By: #### 5 8410-2 ####[facility] [id number] [address] [place] Hemoglobin (Bld) [Mass/Vol] 14.7 g/dL Normal 13.0-17.0 [facility] Comment on above: Order Comment: Speci men Type: BLOOD SPECIMENOrdering Facility: [facility] Address: [address] Performed By: #### 5 8410-2 ####[facility] [id number] [address] MCH (RBC) [Entitic mass] 32.7 pg Normal 26.0-34.0 [facility] Comment on above: Order Comment: Speci men Type: BLOOD SPECIMENOrdering Facility: [facility] Address: [address] [place] [address] Performed By: #### 5 8410-2 ####[facility] [id number] [address] MCHC (RBC) [Mass/Vol] 33.9 g/dL Normal 30.5-36.0 [facility] Comment on above: Order Comment: Speci men Type: BLOOD SPECIMENOrdering Facility: [facility] Address: [address] [place] [address] Performed By: #### 5 8410-2 ####[facility] [id number] [address] MCV (RBC) [Entitic vol] 96.4 fL Normal 80.0-100.0 [facility] Comment on above: Order Comment: Speci men Type: BLOOD SPECIMENOrdering Facility: [facility] Address: [address] [place] [address] Performed By: #### 5 8410-2 ####[facility] [id number] [address] Nucleated RBC (Bld) [#/Vol] 10*3/uL Normal <0.01 [facility] Comment on above: Order Comment: Speci men Type: BLOOD SPECIMENOrdering Facility: [facility] Address: [address] [place] [address] Performed By: #### 5 8410-2 ####[facility] [id number] [address] Platelet mean volume (Bld) [Entitic vol] 9.5 fL Normal 9.0-12.7 [facility] Comment on above: Order Comment: Speci men Type: BLOOD SPECIMENOrdering Facility: [facility] Address: [address] [place] [address] Performed By: #### 5 8410-2 ####[facility] [id number] [address] [place] Platelets (Bld) [#/Vol] 230 10*3/uL Normal 150-400 [facility] Comment on above: Order Comment: Speci men Type: BLOOD SPECIMENOrdering Facility: [facility] Address: [address] [place] [address] Performed By: #### 5 8410-2 ####[facility]ORYCLIA [id number] [place] [address] [place] RBC (Bld) [#/Vol] 4.49 10*6/uL Normal 4.20-6.[address] [facility] Comment on above: Order Comment: Speci men Type: BLOOD SPECIMENOrdering Facility: [facility] Address: [address] [place] [address] Performed By: #### 5 8410-2 ####[facility] [id number] [address] [place] WBC (Bld) [#/Vol] 6.14 10*3/uL Normal 3.70-11.[address] [facility] Comment on above: Order Comment: Speci men Type: BLOOD SPECIMENOrdering Facility: [facility] Address: [address] [place] [address] Performed By: #### 5 8410-2 ####[facility]ORYCLIA [id number] [place] [id number] [facility] [place] CNDSon 11-14-2022 CNDS HNO ID: [id number] Author: Kaitlin Andre DO Service: Hospital Medicine [...] -ED staff discussed with neurosurgeon on-call at [facility] who recommended MRI of lumbar spine. -Patient has been accepted at [facility] for neurosurgery evaluation. Patient was transferred to [facility]. -fall precaution -PT-OT eval Diarrhea POA: [...] ulcers INFORMATION PROVIDED TO PATIENT: transferred to [facility] WOUND/SURGICAL SITE CARE: None DIET: H (more content not included)... Normal [facility] CONSULTon 11-14-2022 CONSULT HNO ID: [id number] Author: Kate Yarbrough APRN.TRANSPORTATION DISPATCH MANAGER Service: Neurosurgery Author Type: Nurse Practitioner Type: Consults Filed: 11/14/2022 11:53 PM Note Text: CONSULT: NEUROSURGERY SERVICE Patient: Miroslava Peralta [address] SERVICE DATE: 11/14/2022 SERVICE TIME: 1940 Consultation [...] spine - MRI lumbar spine completed at [place] with no evidence to suggest cauda equina - No available T-spine imaging completed - Neuromotor and sensory intact, no focal deficits MRI 11/12/22: Per radiologist, 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 Plan: - No T-spine MRI completed at [facility]. Imaging ordered, will f/u results and [...] 1991 Hip arthritis HTN (hypertension) Leukocytosis 1987 [place] admission - thought leukemia and he refused [...] Rfl: amLODIPi (more content not included)... Normal [facility] Comprehensive metabolic 2000 panelon 11-14-2022 Albumin [Mass/Vol] 3.9 g/dL Normal 3.9-4.9 [facility] Comment on above: Order Comment: Speci men Type: BLOOD SPECIMENOrdering Facility: [facility] Address: [address] [place] [address] Performed By: #### 2 4323-8 ####[facility]ORYCL[facility] [id number] [address] ALP [Catalytic activity/Vol] 73 U/L Normal 38-113 [facility] Comment on above: Order Comment: Speci men Type: BLOOD SPECIMENOrdering Facility: [facility] Address: [address] [place] [address] Performed By: #### 2 4323-8 ####[facility]ORYCLIA [id number] [address] STATES [facility] ALT [Catalytic activity/Vol] 10 U/L Normal 10-54 [facility] Comment on above: Order Comment: Speci men Type: BLOOD SPECIMENOrdering Facility: [facility] Address: [address] [place] [address] Performed By: #### 2 4323-8 ####[facility]ORYCLIA [id number] [address] Anion gap [Moles/Vol] 4 mmol/L Low 9-18 [facility] Comment on above: Order Comment: Speci men Type: BLOOD SPECIMENOrdering Facility: [facility] Address: [address] [place] [address] Performed By: #### 2 4323-8 ####[facility]ORYCLIA [id number] [address] AST [Catalytic activity/Vol] 13 U/L Low 14-40 [facility] Comment on above: Order Comment: Speci men Type: BLOOD SPECIMENOrdering Facility: [facility] Address: [address] [place] [address] Performed By: #### 2 4323-8 ####SEGAL LABORATORYCLIA [id number] [place] [address] [place] Bilirubin [Mass/Vol] 0.4 mg/dL Normal 0.2-1.3 [facility] Comment on above: Order Comment: Speci men Type: BLOOD SPECIMENOrdering Facility: [facility] Address: [address] [place] [address] Performed By: #### 2 4323-8 ####SEGAL LABORATORYCLIA [id number] [place] [address] [place] Calcium [Mass/Vol] 9.5 mg/dL Normal 8.5-10.2 [facility] Comment on above: Order Comment: Speci men Type: BLOOD SPECIMENOrdering Facility: [facility] Address: [address] [place] [address] Performed By: #### 2 4323-8 ####SEGAL LABORATORYCLIA [id number] [place] [address] [place] Chloride [Moles/Vol] 101 mmol/L Normal 97-105 [facility] Comment on above: Order Comment: Speci men Type: BLOOD SPECIMENOrdering Facility: [facility] Address: [address] [place] [address] Performed By: #### 2 4323-8 ####SEGAL LABORATORYCLIA [id number] [address] [place] CO2 [Moles/Vol] 30 mmol/L Normal 22-30 [facility] Comment on above: Order Comment: Speci men Type: BLOOD SPECIMENOrdering Facility: [facility] Address: [address] [address] Performed By: #### 2 4323-8 ####SEGAL LABORATORYCLIA [id number] [place] [address] [place] Creatinine [Mass/Vol] 1.02 mg/dL Normal 0.73-1.22 [facility] Comment on above: Order Comment: Speci men Type: BLOOD SPECIMENOrdering Facility: [facility] Address: [address] [place] [address] Performed By: #### 2 4323-8 ####[facility]ORYCLIA [id number] [place] [id number] [place] ESTIMATED GLOMERULAR FILTRATION RATE 78 mL/min/1.73m??? Normal >=60 [facility] Comment on above: Order Comment: Fernanda franks Type: BLOOD SPECIMENOrdering Facility: [facility] Address: [address] [place] [address] Result Comment: Kalani mated Glomerular Filtration Rate [...] actual GFR. Performed By: #### 2 4323-8 ####[facility]ORYCLIA [id number] [place] [address] [place] Glucose [Mass/Vol] 99 mg/dL Normal 74-99 [facility] Comment on above: Order Comment: Fernanda franks Type: BLOOD SPECIMENOrdering Facility: [facility] Address: [address] [place] [address] Result Comment: The [place] Diabetes Association (ADA) provides guidance for cutoff [...] Standards of Medical Care in Diabetes 2016, [place] [employer] Association. Diabetes Care. 2016.39(Suppl 1). Performed By: #### 2 4323-8 ####SEGAL LABORATORYCLIA [id number] [place] [id number] [place] Potassium [Moles/Vol] 4.5 mmol/L Normal 3.7-5.1 [facility] Comment on above: Order Comment: Speci men Type: BLOOD SPECIMENOrdering Facility: [facility] Address: [address] [place] [address] Performed By: #### 2 4323-8 ####SEGAL LABORATORYCLIA [id number] [address] Protein [Mass/Vol] 6.8 g/dL Normal 6.3-8.0 [facility] Comment on above: Order Comment: Speci men Type: BLOOD SPECIMENOrdering Facility: [facility] Address: [address] [place] [address] Performed By: #### 2 4323-8 ####SEGAL LABORATORYCLIA [id number] [address] [place] Sodium [Moles/Vol] 135 mmol/L Low 136-144 [facility] Comment on above: Order Comment: Speci men Type: BLOOD SPECIMENOrdering Facility: [facility] Address: [address] [place] [address] Performed By: #### 2 4323-8 ####SEGAL LABORATORYCLIA [id number] [address] [place] Urea nitrogen [Mass/Vol] 18 mg/dL Normal 9-24 [facility] Comment on above: Order Comment: Speci men Type: BLOOD SPECIMENOrdering Facility: [facility] Address: [address] [place] [address] Performed By: #### 2 4323-8 ####SEGAL LABORATORYCLIA [id number] [address] [place] NURSING PROGon 11-14-2022 NURSING PROG HNO ID: [id number] Author: Mel Nazario RN Service: Nursing Author Type: Registered Nurse Type: Nursing Progress Note Filed: 11/14/2022 5:11 PM Note Text: Transfer Note: Patient transferred into room/unit PK335 in stable condition. Actions taken: No futher actions taken at this time. Will continue to monitor and check with patient. Patient Oriented to room and call light. Admission hospitalist paged for orders. Normal [facility] NURSING PROG HNO ID: [id number] Author: Maria E Welch RN Service: Nursing Author Type: Registered Nurse Type: Nursing Progress Note Filed: 11/14/2022 3:53 PM Note Text: Other: 1547: Patient picked up by transport to go to [place]. Update called to Candy GAMBINO on PK 3 at [place]. [facility] THERAPY NTon 11-14-2022 THERAPY NT HNO ID: [id number] Author: Mone Fraire OTR/L Service: Occupational Therapy Author Type: Occupational Therapist Type: Therapy (PT/OT/Speech/Resp) Filed: 11/14/2022 9:08 AM Note Text: OCCUPATIONAL THERAPY MISSED VISIT SERVICE DATE: 11/14/2022 SERVICE TIME: 900 to 900 ROOM: [place] [address] Patient not seen due to Hold: Clinical Appropriateness. Patient notes state patient is being transferred to [place] this date. Will continue to monitor patient status in the event patient transfer is delayed for occupational therapy eval. SIGNATURE: Mone Fraire OTR/Madhuri PATIENT NAME: Miroslava Monzonw DATE: November 14, 2022 TIME: 9:02 AM [facility] THERAPY NT HNO ID: [id number] Author: Linda Beyer PT Service: Physical Therapy Author Type: Physical Therapist Type: Therapy (PT/OT/Speech/Resp) Filed: 11/14/2022 8:36 AM Note Text: PHYSICAL THERAPY MISSED VISIT SERVICE DATE: 11/14/2022 SERVICE TIME: 0834 to 0834 ROOM: [place] [address] Patient not seen due to Hold: Clinical Appropriateness. Notes indicate patient is being transferred to [place] this date. Will monitor pt status and re-assess need for PT eval in case transfer is delayed. SIGNATURE: Linda Beyer PT PATIENT NAME: Miroslava Wellertaw DATE: November 14, 2022 TIME: 8:35 AM [facility] CBC panel Auto (Bld)on 11-13 Erythrocyte distribution width (RBC) [Ratio] 12.5 % Normal 11.5-15.0 [facility] Comment on above: Order Comment: Speci men Type: BLOOD SPECIMENOrdering Facility: [facility] Address: [address] [address] Performed By: #### 5 8410-2 ####SEGAL LABORATORYCLIA [id number] [address] Hematocrit (Bld) [Volume fraction] 43.2 % Normal 39.0-51.0 [facility] Comment on above: Order Comment: Speci men Type: BLOOD SPECIMENOrdering Facility: [facility] Address: [address] [place] [address] Performed By: #### 5 8410-2 ####SEGAL LABORATORYCLIA [id number] [address] [place] Hemoglobin (Bld) [Mass/Vol] 14.8 g/dL Normal 13.0-17.0 [facility] Comment on above: Order Comment: Speci men Type: BLOOD SPECIMENOrdering Facility: [facility] Address: [address] [place] [address] Performed By: #### 5 8410-2 ####SEGAL LABORATORYCLIA [id number] [address] STATES [facility] MCH (RBC) [Entitic mass] 32.7 pg Normal 26.0-34.0 [facility] Comment on above: Order Comment: Speci men Type: BLOOD SPECIMENOrdering Facility: [facility] Address: [address] [place] [address] Performed By: #### 5 8410-2 ####SEGAL LABORATORYCLIA [id number] [address] [place] MCHC (RBC) [Mass/Vol] 34.3 g/dL Normal 30.5-36.0 [facility] Comment on above: Order Comment: Speci men Type: BLOOD SPECIMENOrdering Facility: [facility] Address: [address] [place] [address] Performed By: #### 5 8410-2 ####SEGAL LABORATORYCLIA [id number] [address] MCV (RBC) [Entitic vol] 95.6 fL Normal 80.0-100.0 [facility] Comment on above: Order Comment: Speci men Type: BLOOD SPECIMENOrdering Facility: [facility] Address: [address] [address] Performed By: #### 5 8410-2 ####SEGAL LABORATORYCLIA [id number] [address] [place] Nucleated RBC (Bld) [#/Vol] 10*3/uL Normal <0.01 [facility] Comment on above: Order Comment: Speci men Type: BLOOD SPECIMENOrdering Facility: [facility] Address: [address] [address] Performed By: #### 5 8410-2 ####SEGAL LABORATORYCLIA [id number] [address] [place] Platelet mean volume (Bld) [Entitic vol] 9.4 fL Normal 9.0-12.7 [facility] Comment on above: Order Comment: Speci men Type: BLOOD SPECIMENOrdering Facility: [facility] Address: [address] [address] Performed By: #### 5 8410-2 ####SEGAL LABORATORYCLIA [id number] [place] [address] [place] Platelets (Bld) [#/Vol] 211 10*3/uL Normal 150-400 [facility] Comment on above: Order Comment: Speci men Type: BLOOD SPECIMENOrdering Facility: [facility] Address: [address] [address] Performed By: #### 5 8410-2 ####SEGAL LABORATORYCLIA [id number] [place] [address] [place] RBC (Bld) [#/Vol] 4.52 10*6/uL Normal 4.20-6.[address] [facility] Comment on above: Order Comment: Speci men Type: BLOOD SPECIMENOrdering Facility: [facility] Address: [address] [place] [address] Performed By: #### 5 8410-2 ####SEGAL LABORATORYCLIA [id number] [address] [place] WBC (Bld) [#/Vol] 5.45 10*3/uL Normal 3.70-11.[address] [facility] Comment on above: Order Comment: Specadrian franks Type: BLOOD SPECIMENOrdering Facility: [facility] Address: [address] [address] Performed By: #### 5 8410-2 ####[facility] LABORATORYCLIA [id number] [address] [place] CELIAC SCREENon 11-13-2022 GLIAD DEAMIDATED IGA QUAL Negative Normal Negative, Test not Indicated [facility] Comment on above: Order Comment: Specadrian franks Type: BLOOD SPECIMENOrdering Facility: [facility] Address: [address] [address] Result Comment: This is used as an aid in diagnosis of celiac disease. Clinical correlation is required. The following results were obtained with an Macro[employer] QUANTA Lite Gliadin IgA GAETANO Gliadin. Gliadin IgA values obtained with different manufacturers' assay methods may not be used interchangeably. The magnitude of the reported IgA levels cannot be correlated to an endpoint titer. Performed By: #### L [id number] ####[facility] LABCLIA [id number] [address] [place] Gliadin peptide IgA Qn (S) 2 Units Normal <20 [facility] Comment on above: Order Comment: Fernanda franks Type: BLOOD SPECIMENOrdering Facility: [facility] Address: [address] [place] [address] Performed By: #### L [id number] ####[facility] LABCLIA [id number] [address] [place] INTERPRETATION No serological evide nce of celiac disease, however, if celiac disease is clinically suspected and patient is not on gluten-free diet, histological diagnosis may be considered. HLA testing may help with risk assessment. Normal [facility] Comment on above: Order Comment: Fernanda franks Type: BLOOD SPECIMENOrdering Facility: [facility] Address: [address] [address] Performed By: #### L [id number] ####[facility] LABCLIA [id number] [address] TRANSGLUTAMINASE IGA QUAL Negative Normal Negative, Test not Indicated [facility] Comment on above: Order Comment: Fernanda franks Type: BLOOD SPECIMENOrdering Facility: [facility] Address: [address] [place] [address] Result Comment: The following results were obtained with the Tandem TransitA Lite h-tTG IgA GAETANO. h-tTG IgA values obtained with different manufacturers' assay methods may not be used interchangeable. The magnitude of the reported IgA levels cannot be correlated to an endpoint titer. This is used as an aid in diagnosis of celiac disease. Clinical correlation is required. Performed By: #### L [id number] ####[facility] LABCLIA [id number] [address] tTG IgA Qn (S) 4 Units Normal <20 [facility] Comment on above: Order Comment: Fernanda franks Type: BLOOD SPECIMENOrdering Facility: [facility] Address: [address] [place] [address] Performed By: #### L [id number] ####[facility] LABCLIA [id number] [address] CONSULTon 11-13-2022 CONSULT HNO ID: [id number] Author: Tha Marquis MD Service: Gastroenterology Author [...] fairly unremarkable. He is being transferred to [place] for neurosurgery evaluation - awaiting a bed. [...] 1991 Hip arthritis HTN (hypertension) Leukocytosis 1986 [facility] admission - thought leukemia and he refused [...] Oral 85 12 94 % -- -- 11/12/222019 163/85 36.9 ?C (98.4 ?F) Oral 76 18 97 % -- -- 11/12/22 1432 172/96 36.7 ?C (98.1 ?F) Oral 75 1 (more content not included)... Normal [facility] Comprehensive metabolic 2000 panelon 11-13-2022 Albumin [Mass/Vol] 3.9 g/dL Normal 3.9-4.9 [facility] Comment on above: Order Comment: Speci men Type: BLOOD SPECIMENOrdering Facility: [facility] Address: [address] [place] [address] Performed By: #### 3 016-3, 42055-7, CHASE ####SEGAL LABORATORYCLIA [id number] [address] STATES OF [facility] ALP [Catalytic activity/Vol] 70 U/L Normal 38-113 [facility] Comment on above: Order Comment: Speci men Type: BLOOD SPECIMENOrdering Facility: [facility] Address: [address] [place] [address] Performed By: #### 3 016-3, , CHASE ####SEGAL LABORATORYCLIA [id number] [address] ALT [Catalytic activity/Vol] 11 U/L Normal 10-54 [facility] Comment on above: Order Comment: Speci men Type: BLOOD SPECIMENOrdering Facility: [facility] Address: [address] [place] [address] Performed By: #### 3 016-3, 29164-6, CHASE ####SEGAL LABORATORYCLIA [id number] [address] Anion gap [Moles/Vol] 7 mmol/L Low 9-18 [facility] Comment on above: Order Comment: Speci men Type: BLOOD SPECIMENOrdering Facility: [facility] Address: [address] [address] Performed By: #### 3 016-3, , CHASE ####SEGAL LABORATORYCLIA [id number] [place] [address] [place] AST [Catalytic activity/Vol] 14 U/L Normal 14-40 [facility] Comment on above: Order Comment: Speci men Type: BLOOD SPECIMENOrdering Facility: [facility] Address: [address] [place] [address] Performed By: #### 3 016-3, , CHASE ####SEGAL LABORATORYCLIA [id number] [place] [address] [place] Bilirubin [Mass/Vol] 0.4 mg/dL Normal 0.2-1.3 [facility] Comment on above: Order Comment: Speci men Type: BLOOD SPECIMENOrdering Facility: [facility] Address: [address] [facility] [place] [address] Performed By: #### 3 016-3, , CHASE ####SEGAL LABORATORYCLIA [id number] [place] [address] [place] Calcium [Mass/Vol] 9.5 mg/dL Normal 8.5-10.2 [facility] Comment on above: Order Comment: Speci men Type: BLOOD SPECIMENOrdering Facility: [facility] Address: [address] [place] [address] Performed By: #### 3 016-3, , CHASE ####SEGAL LABORATORYCLIA [id number] [place] [address] [place] Chloride [Moles/Vol] 102 mmol/L Normal 97-105 [facility] Comment on above: Order Comment: Speci men Type: BLOOD SPECIMENOrdering Facility: [facility] Address: [address] [facility] [place] [address] Performed By: #### 3 016-3, , CHASE ####SEGAL LABORATORYCLIA [id number] [place] [address] [place] CO2 [Moles/Vol] 30 mmol/L Normal 22-30 [facility] Comment on above: Order Comment: Fernanda franks Type: BLOOD SPECIMENOrdering Facility: [facility] Address: [address] [place] [address] Performed By: #### 3 016-3, 96601-9, CHASE ####SEGAL LABORATORYCLIA [id number] [address] Creatinine [Mass/Vol] 1.10 mg/dL Normal 0.73-1.22 [facility] Comment on above: Order Comment: Fernanda franks Type: BLOOD SPECIMENOrdering Facility: [facility] Address: [address] [place] [address] Performed By: #### 3 016-3, 73448-1, CHASE ####SEGAL LABORATORYCLIA [id number] [address] ESTIMATED GLOMERULAR FILTRATION RATE 71 mL/min/1.73m??? Normal >=60 [facility] Comment on above: Order Comment: Fernanda franks Type: BLOOD SPECIMENOrdering Facility: [facility] Address: [address] [place] [address] Result Comment: Kalani mated Glomerular Filtration Rate [...] actual GFR. Performed By: #### 3 016-3, 94342-7, CHASE ####SEGAL LABORATORYCLIA [id number] [address] STATES [facility] Glucose [Mass/Vol] 100 mg/dL High 74-99 [facility] Comment on above: Order Comment: Fernanda golden Type: BLOOD SPECIMENOrdering Facility: [facility] Address: [address] [place] [address] Result Comment: The [place] Diabetes Association (ADA) provides guidance for cutoff [...] Standards of Medical Care in Diabetes 2016, [place] Diabetes Association. Diabetes Care. 2016.39(Suppl 1). Performed By: #### 3 016-3, 34014-0, CHASE ####SEGAL LABORATORYCLIA [id number] [place] [address] [place] Potassium [Moles/Vol] 4.6 mmol/L Normal 3.7-5.1 [facility] Comment on above: Order Comment: Fernanda franks Type: BLOOD SPECIMENOrdering Facility: [facility] Address: [address] [place] [address] Performed By: #### 3 016-3, , CHASE ####SEGAL LABORATORYCLIA [id number] [place] [address] [place] Protein [Mass/Vol] 6.7 g/dL Normal 6.3-8.0 [facility] Comment on above: Order Comment: Fernanda franks Type: BLOOD SPECIMENOrdering Facility: [facility] Address: [address] [address] Performed By: #### 3 016-3, , CHASE ####SEGAL LABORATORYCLIA [id number] [place] [address] [place] Sodium [Moles/Vol] 139 mmol/L Normal 136-144 [facility] Comment on above: Order Comment: Fernanda franks Type: BLOOD SPECIMENOrdering Facility: [facility] Address: [address] [place] [address] Performed By: #### 3 016-3, , CHASE ####SEGAL LABORATORYCLIA [id number] [place] [address] [place] Urea nitrogen [Mass/Vol] 16 mg/dL Normal 9-24 [facility] Comment on above: Order Comment: Betoi golden Type: BLOOD SPECIMENOrdering Facility: [facility] Address: [address] [place] [address] Performed By: #### 3 016-3, 21093-3, CHASE ####SEGAL LABORATORYCLIA [id number] [address] IgA SerPl-mCncon 11-13-2022 IgA [Mass/Vol] 129 mg/dL Normal 70-400 [facility] Comment on above: Order Comment: Speci men Type: BLOOD SPECIMENOrdering Facility: [facility] Address: [address] [place] [address] Performed By: #### 2 458-8 ####[facility] LABCLIA [id number] [address] TROPONIN Ton 11-13-2022 Troponin T.cardiac [Mass/Vol] ug/L Normal 0.000-0.029 [facility] Comment on above: Order Comment: Speci men Type: BLOOD SPECIMENOrdering Facility: [facility] Address: [address] [place] [address] Performed By: #### 3 016-3, 60008-4, CHASE ####SEGAL LABORATORYCLIA [id number] [address] TSH SerPl-aCncon 11-13-2022 TSH Qn 1.880 m[IU]/L Normal 0.270-4.200 [facility] Comment on above: Order Comment: Speci men Type: BLOOD SPECIMENOrdering Facility: [facility] Address: [address] [place] [address] Performed By: #### 3 016-3, 19090-5, CHASE ####SEGAL LABORATORYCLIA [id number] [address] ALLIED HEALTHon 11-12-2022 ALLIED HEALTH HNO ID: [id number] Author: Chaplain Mary Service: Spiritual Care Author Type: Steam Turbine Operator Type: Allied Health Filed: 11/12/2022 8:08 PM Note Text: SPIRITUAL CARE PROGRESS NOTE SERVICE DATE: 11/12/2022 SERVICE TIME: 7:19-7:40pm This clinical reimbursement specialist was welcomed in heartily by the patient to provide spiritual care. Patient spoke about his recent physical issues. A lack of local family support was identified. Patient had a spiritual dialogue with this clinical reimbursement specialist, pointedly a psotive demeanor in regard to what God may be doing in his life right now. At the request of the patient, this clinical reimbursement specialist prayed for healing for the patient and for spiritual growth for him. To contact the Spiritual Care Department: Please call [phone]. SIGNATURE: Chaplain Mary PATIENT NAME: Miroslava Peralta DATE: November 12, 2022 TIME: 8:04 PM PAGER/CONTACT #: [phone] [facility] HNO ID: [id number] Author: LAINEY Kaye Service: Radiology Author Type: Studio Operation Engineer Type: Allied Health Filed: 11/12/2022 5:56 PM [...] ROSA Jaramillo November 12, 2022 5:55 PM [facility] HNO ID: [id number] Author: RT Tika(R) Service: Radiology Author Type: Studio Operation Engineer Type: Allied Health Filed: 11/12/2022 5:14 PM [...] PERIPHERAL IV DATA: Not applicable SIGNED BY: Dione Delarosa RT(R) November 12, 2022 5:13 PM Normal [facility] Bacteria Bld Culton 11-12-20 22 Bacteria identified Cx Nom (Bld) CULTURE, BLOOD: No growth 5 days Normal [facility] Comment on above: Performed By: #### 6 00-7 ####[facility] LABCLIA [id number] [address] STATES OF [facility] Bacteria identified Cx Nom (Bld) CULTURE, BLOOD: No growth 5 days Normal [facility] Comment on above: Performed By: #### 6 00-7 ####[facility] LABCLIA [id number] [address] [place] CK TOTAL AND CK-MBon 022 CK [Catalytic activity/Vol] 141 U/L Normal 51-298 [facility] Comment on above: Order Comment: Speci men Type: BLOOD SPECIMEN [facility] Address: [address] [place] [address] Performed By: #### T NT #### [facility] CLIA [id number] [address] CK.MB [Mass/Vol] 4.6 ng/mL Normal <7.8 [facility] Comment on above: Order Comment: Speci men Type: BLOOD SPECIMEN [facility] Address: [address] [address] Performed By: #### T NT #### [facility] CLIA [id number] [address] CK.MB [Ratio] 330 {ratio} Normal <=4.0 [facility] Comment on above: Order Comment: Speci men Type: BLOOD SPECIMEN [facility] Address: [address] [place] [address] Performed By: #### T NT #### [facility] CLIA [id number] [address] [place] [address] [facility] Bharath 11-12-2022 CNPN Telephone (FVPRAD) MIROSLAVA PERALTA ([id number]) 1950 [address] Date Time Provider Department 11/12/22 DEANN DOMÍNGUEZ FVSTEVE During your visit today, we recorded the following information about you: Deann Domínguez MD 11/12/2022 7:39 AM Signed Call from [facility], 72 yo male with remote decompression laminectomy [...] and LS spine MRIs and transfer to [place] for ongoing evaluation. Deann Domínguez MD 11/11/22 [...] Assessed Reason for Visit: Hospital To Hospital [[id number]] Prescriptions as of 11/12/2022 - amLODIPine (NORVASC) [...] Encounter Status:Closed by DEANN DOMÍNGUEZ on 11/12/22 [facility] ECG COMPLETEon 11-12-2022 ECG COMPLETE Ventricular Rate : 7 4 BPM Atrial Rate : 74 BPM P-R Interval : 160 ms QRS Duration : 98 ms Q-T Interval : 414 ms QTC Calculation(Bazett) : 459 ms Calculated P Percy : 6 degrees Calculated R Percy : -61 degrees Calculated T Percy : -16 degrees NORMAL SINUS RHYTHM LEFT AXIS DEVIATION POSSIBLE ANTEROLATERAL INFARCT , AGE UNDETERMINED ABNORMAL ECG WHEN COMPARED WITH ECG OF 20-JUL-2014 09:01, BORDERLINE CRITERIA FOR ANTEROLATERAL INFARCT ARE NOW PRESENT Confirmed by MD DYER GREGORY () on 11/13/2022 12:52:33 PM NAME : MIROSLAVA PERALTA PID : [id number] : 1950 Gender : Male Race : ORD : [id number] Procedure Date : Nov 12 2022 17:17:01 [...] Referred By : , Acquired by : [id number], [facility] ED NOTEon 11-12-2022 ED NOTE HNO ID: [id number] Author: Rosie Shipman RN Service: ? Author Type: Registered Nurse Type: ED Notes Filed: 11/12/2022 1:20 PM Note Text: Pt informed of plan for MRI. [facility] ED NOTE HNO ID: [id number] Author: Rosie Shipman RN Service: ? Author Type: Registered Nurse Type: ED Notes Filed: 11/12/2022 1:01 PM Note Text: Pt resting with eyes closed, respirations even and regular. [facility] ED NOTE HNO ID: [id number] Author: Rosie Shipman RN Service: ? Author Type: Registered Nurse Type: ED Notes Filed: 11/12/2022 10:56 AM Note Text: Updated pt on wait for bed assignment. Pt requesting something for his anxiety. Will notify provider. [facility] ED NOTE HNO ID: [id number] Author: Rosie Shipman RN Service: ? Author Type: Registered Nurse Type: ED Notes Filed: 11/12/2022 7:34 AM Note Text: Pt provided with breakfast tray. Pt states pain well controlled. Updated on wait for bed at [place]. Pt denies any needs at this time. [facility] ED NOTE HNO ID: [id number] Author: Soni Linder RN Service: ? Author Type: Registered Nurse Type: ED Notes Filed: 11/12/2022 4:18 AM Note Text: Patient sleeping, no complaints. [facility] ED PROV NOTEon 11-12-2022 ED PROV NOTE HNO ID: [id number] Author: Binh Murdock MD Service: Emergency Medicine [...] 12:46 PM PAGER/CONTACT #: BINH MURDOCK 11/12/22 [id number] BINH MURDOCK 11/12/22 7890 Normal [facility] HISTORY PHYSICALon HISTORY PHYSICAL HNO ID: [id number] Author: Kaitlin Andre DO Service: Hospital Medicine Author Type: Physician Type: HANDP Filed: 11/12/2022 11:52 PM Note Text: DEPARTMENT OF HOSPITAL MEDICINE HISTORY AND PHYSICAL EXAM SERVICE DATE: 11/12/2022 Code Status: Not on file SERVICE TIME: 4:26 PM Primary Care Physician: aMrbella Zaidi PA-C NIGHT AND WEEKEND COVERAGE: [place] [facility]: Days: [phone], please page attending physician. Nights: [phone], please page [facility] Night coverage pager [phone]. Subjective CHIEF COMPLAINT: Diarrhea ongoing for 7 [...] ED staff discussed with neurosurgeon on-call at [place] who recommended MRI of lumbar spine. Patient has been accepted at [facility] for neurosurgery evaluation pending bed availability. [...] 1991 Hip arthritis HTN (hypertension) Leukocytosis 1986 [facility] admission - thought leukemia and he refused [...] use: No Comment: Quit drugs in ~. PRIOR TO ADMISSION MEDICATIONS: amLODIPine (NORVASC) 10 [...] Comments Mood (more content not included)... Normal [facility] MRI LUMBAR SPINE WO IVCONon 11-12-2022 MRI LUMBAR SPINE WO IVCON * * *Final Report* * * DATE OF EXAM: Nov 12 2022 6:18PM [facility] 0303 - MRI LUMBAR SPINE WO [...] and assume there are 5 lumbar-type vertebrae. Bicycle Rental Clerk: PSCB Transcribe Date/Time: Nov 12 2022 6:42P Dictated by : BINH DON MD This examination was interpreted and the report reviewed and electronically signed by: BINH DON MD on Nov 12 2022 6:49PM EST [id number] Normal [facility] TROPONIN Ton 11-12-2022 Troponin T.cardiac [Mass/Vol] ug/L Normal 0.000-0.029 [facility] Comment on above: Order Comment: Speci men Type: BLOOD SPECIMEN Ordering Facility: [facility] Address: [place] [address] Performed By: #### T NT #### [facility] CLIA [id number] [address] [place] [address] [place] XR CHEST 2V [...] radiographs 11/02/2022. Otherwise, no acute radiographic abnormality. Bicycle Rental Clerk: PSCFreeman Transcribe Date/Time: Nov 12 2022 5:20P Dictated by : DOT GOLDEN DO This examination was interpreted and the report reviewed and electronically signed by: DOT GOLDEN DO on Nov 12 2022 5:27PM EST [id number] Normal [facility] ALLIED HEALTHon 11-11-2022 ALLIED HEALTH HNO ID: [id number] Author: Shonda Rao, [place] Service: ? Author [...] PERIPHERAL IV DATA: Inpatient - refer to [facility] documentation RADIOLOGY DEPARTMENT: CT; Exam(s) Completed: Abdomen/Pelvis SIGNATURE: LAINEY Solorzano PATIENT NAME: Miroslava Peralta DATE: November 11, 2022 TIME: 9:33 PM Normal [facility] CBC W Auto Differential pane l (Bld)on 11-11-2022 Basophils (Bld) [#/Vol] 0.06 10*3/uL Normal <0.11 [facility] Comment on above: Order Comment: Speci men Type: BLOOD SPECIMENOrdering Facility: [facility] Address: [address] [address] Performed By: #### 5 7021-8 ####[facility] [id number] [address] Basophils/100 WBC (Bld) 0.9 % Normal [facility] Comment on above: Order Comment: Speci men Type: BLOOD SPECIMENOrdering Facility: [facility] Address: [address] [place] [address] Performed By: #### 5 7021-8 ####[facility]ORY[facility] [id number] [address] [place] Differential cell count method Nom (Bld) Auto Normal [facility] Comment on above: Order Comment: Speci men Type: BLOOD SPECIMENOrdering Facility: [facility] Address: [address] [place] [address] Performed By: #### 5 7021-8 ####[facility]ORATORYCLIA [id number] [place] [address] [place] Eosinophils (Bld) [#/Vol] 0.26 10*3/uL Normal <0.46 [facility] Comment on above: Order Comment: Speci men Type: BLOOD SPECIMENOrdering Facility: [facility] Address: [address] [place] [address] Performed By: #### 5 7021-8 ####[facility]ORYCLIA [id number] [address] Eosinophils/100 WBC (Bld) 3.8 % Normal [facility] Comment on above: Order Comment: Speci men Type: BLOOD SPECIMENOrdering Facility: [facility] Address: [address] [place] [address] Performed By: #### 5 7021-8 ####[facility]ATORYCLIA [id number] [address] Erythrocyte distribution width (RBC) [Ratio] 12.2 % Normal 11.5-15.0 [facility] Comment on above: Order Comment: Speci men Type: BLOOD SPECIMENOrdering Facility: [facility] Address: [address] [address] Performed By: #### 5 7021-8 ####[facility] LABORATORYCLIA [id number] [place] [address] [facility] [place] Hematocrit (Bld) [Volume fraction] 42.4 % Normal 39.0-51.0 [facility] Comment on above: Order Comment: Speci men Type: BLOOD SPECIMENOrdering Facility: [facility] Address: [address] [place] [address] Performed By: #### 5 7021-8 ####[facility]ORATORYCLIA [id number] [place] [address] [place] Hemoglobin (Bld) [Mass/Vol] 14.9 g/dL Normal 13.0-17.0 [facility] Comment on above: Order Comment: Speci men Type: BLOOD SPECIMENOrdering Facility: [facility] Address: [address] [place] [address] Performed By: #### 5 7021-8 ####[facility]ORATORYCLIA [id number] [place] [address] [place] Immature granulocytes (Bld) [#/Vol] 10*3/uL Normal <0.10 [facility] Comment on above: Order Comment: Speci men Type: BLOOD SPECIMENOrdering Facility: [facility] Address: [address] [place] [address] Performed By: #### 5 7021-8 ####[facility]ATORYCLIA [id number] [address] [place] Immature granulocytes/100 WBC (Bld) 0.1 % Normal [facility] Comment on above: Order Comment: Speci men Type: BLOOD SPECIMENOrdering Facility: [facility] Address: [address] [address] Performed By: #### 5 7021-8 ####[facility]ORATORYCLIA [id number] [place] [address] [place] Lymphocytes (Bld) [#/Vol] 1.24 10*3/uL Normal 1.00-4.00 [facility] Comment on above: Order Comment: Speci men Type: BLOOD SPECIMENOrdering Facility: [facility] Address: [address] [address] Performed By: #### 5 7021-8 ####[facility]ATORYCLIA [id number] [address] Lymphocytes/100 WBC (Bld) 18.2 % Normal [facility] Comment on above: Order Comment: Speci men Type: BLOOD SPECIMENOrdering Facility: [facility] Address: [address] [place] [address] Performed By: #### 5 7021-8 ####[facility]ORATORYCLIA [id number] [address] MCH (RBC) [Entitic mass] 33.2 pg Normal 26.0-34.0 [facility] Comment on above: Order Comment: Speci men Type: BLOOD SPECIMENOrdering Facility: [facility] Address: [address] [place] [address] Performed By: #### 5 7021-8 ####[facility]ORATORYCLIA [id number] [address] STATES [facility] MCHC (RBC) [Mass/Vol] 35.1 g/dL Normal 30.5-36.0 [facility] Comment on above: Order Comment: Speci men Type: BLOOD SPECIMENOrdering Facility: [facility] Address: [address] [place] [address] Performed By: #### 5 7021-8 ####[facility]ORATORYCLIA [id number] [address] MCV (RBC) [Entitic vol] 94.4 fL Normal 80.0-100.0 [facility] Comment on above: Order Comment: Speci men Type: BLOOD SPECIMENOrdering Facility: [facility] Address: [address] [place] [address] Performed By: #### 5 7021-8 ####[facility]ATORYCLIA [id number] [address] Monocytes (Bld) [#/Vol] 1.00 10*3/uL High <0.87 [facility] Comment on above: Order Comment: Speci men Type: BLOOD SPECIMENOrdering Facility: [facility] Address: [address] [place] [address] Performed By: #### 5 7021-8 ####[facility] LABORATORYCLIA [id number] [place] [address] [place] Monocytes/100 WBC (Bld) 14.6 % Normal [facility] Comment on above: Order Comment: Speci men Type: BLOOD SPECIMENOrdering Facility: [facility] Address: [address] [place] [address] Performed By: #### 5 7021-8 ####[facility] LABORATORYCLIA [id number] [place] [address] [place] Neutrophils (Bld) [#/Vol] 4.26 10*3/uL Normal 1.45-7.50 [facility] Comment on above: Order Comment: Speci men Type: BLOOD SPECIMENOrdering Facility: [facility] Address: [address] [place] [address] Performed By: #### 5 7021-8 ####[facility] LABORATORYCLIA [id number] [place] [address] [place] Neutrophils/100 WBC (Bld) 62.4 % Normal [facility] Comment on above: Order Comment: Speci men Type: BLOOD SPECIMENOrdering Facility: [facility] Address: [address] [place] [address] Performed By: #### 5 7021-8 ####[facility] LABORATORYCLIA [id number] [place] [address] [place] Nucleated RBC (Bld) [#/Vol] 10*3/uL Normal <0.01 [facility] Comment on above: Order Comment: Speci men Type: BLOOD SPECIMENOrdering Facility: [facility] Address: [address] [place] [address] Performed By: #### 5 7021-8 ####[facility] LABORATORYCLIA [id number] [place] [address] [place] Nucleated RBC/100 WBC (Bld) [Ratio] 0.0 /100 WBC Normal [facility] Comment on above: Order Comment: Speci men Type: BLOOD SPECIMENOrdering Facility: [facility] Address: [address] [place] [address] Performed By: #### 5 7021-8 ####[facility]ORATORYCLIA [id number] [address] [place] Platelet mean volume (Bld) [Entitic vol] 9.3 fL Normal 9.0-12.7 [facility] Comment on above: Order Comment: Speci men Type: BLOOD SPECIMENOrdering Facility: [facility] Address: [address] [address] Performed By: #### 5 7021-8 ####[facility] LABORATORYCLIA [id number] [place] [address] [place] Platelets (Bld) [#/Vol] 240 10*3/uL Normal 150-400 [facility] Comment on above: Order Comment: Speci men Type: BLOOD SPECIMENOrdering Facility: [facility] Address: [address] [place] [address] Performed By: #### 5 7021-8 ####[facility] LABORATORYCLIA [id number] [place] [address] [facility] [place] RBC (Bld) [#/Vol] 4.49 10*6/uL Normal 4.20-6.[address] [facility] Comment on above: Order Comment: Speci men Type: BLOOD SPECIMENOrdering Facility: [facility] Address: [address] [place] [address] Performed By: #### 5 7021-8 ####[facility]ORATORYCLIA [id number] [address] [place] WBC (Bld) [#/Vol] 6.83 10*3/uL Normal 3.70-11.[address] [facility] Comment on above: Order Comment: Speci men Type: BLOOD SPECIMENOrdering Facility: [facility] Address: [address] [place] [address] Performed By: #### 5 7021-8 ####[facility] LABORATORYCLIA [id number] [address] [place] [address] ABD/PEL W IVCONon 12-21-[address] ABD/PEL W IVCON * * *Final Report* * * DATE OF EXAM: Nov 11 2022 9:46PM [facility] 0530 - CT ABD/PEL W IVCON / [...] fractures, 6-9. Small right fat-containing inguinal hernia. Publications Sales Representative (topogram) images: No additional findings. IMPRESSION: 1. No acute intra-abdominal or pelvic abnormality. 2. Acute to subacute appearing left anterolateral rib fractures. Bicycle Rental Clerk: AMANDA Transcribe Date/Time: Nov 11 2022 10:21P Dictated by : SHAVONNE BRODY MD This examination was interpreted and the report reviewed and electronically signed by: SHAVONNE BRODY MD on Dec 21 2022 10:39PM EST [id number] Normal [facility] Comprehensive metabolic 2000 panelon 11-11-2022 Albumin [Mass/Vol] 4.2 g/dL Normal 3.9-4.9 [facility] Comment on above: Order Comment: Speci men Type: BLOOD SPECIMEN Ordering Facility: [facility] Address: [address] [address] Performed By: #### T NT #### [facility] CLIA [id number] [address] [place] [address] [place] ALP [Catalytic activity/Vol] 70 U/L Normal 38-113 [facility] Comment on above: Order Comment: Speci men Type: BLOOD SPECIMEN Ordering Facility: [facility] Address: [address] [place] [address] Performed By: #### T NT #### [facility] CLIA [id number] [address] ALT [Catalytic activity/Vol] 13 U/L Normal 10-54 [facility] Comment on above: Order Comment: Speci men Type: BLOOD SPECIMEN Ordering Facility: [facility] Address: [address] [address] Performed By: #### T NT #### [facility] CLIA [id number] [address] Anion gap [Moles/Vol] 10 mmol/L Normal 9-18 [facility] Comment on above: Order Comment: Speci men Type: BLOOD SPECIMEN Ordering Facility: [facility] Address: [address] [address] Performed By: #### T NT #### [facility] CLIA [id number] [address] [place] AST [Catalytic activity/Vol] 20 U/L Normal 14-40 [facility] Comment on above: Order Comment: Speci men Type: BLOOD SPECIMEN Ordering Facility: [facility] Address: [address] [address] Performed By: #### T NT #### [facility] CLIA [id number] [address] [place] Bilirubin [Mass/Vol] 0.2 mg/dL Normal 0.2-1.3 [facility] Comment on above: Order Comment: Speci men Type: BLOOD SPECIMEN Ordering Facility: [facility] Address: [address] [place] [address] Performed By: #### T NT #### [facility] CLIA [id number] [address] [place] [address] [place] Calcium [Mass/Vol] 9.6 mg/dL Normal 8.5-10.2 [facility] Comment on above: Order Comment: Speci men Type: BLOOD SPECIMEN Ordering Facility: [facility] Address: [address] [place] [address] Performed By: #### T NT #### [facility] CLIA [id number] [address] [place] Chloride [Moles/Vol] 99 mmol/L Normal 97-105 [facility] Comment on above: Order Comment: Speci men Type: BLOOD SPECIMEN Ordering Facility: [facility] Address: [address] [place] [address] Performed By: #### T NT #### [facility] CLIA [id number] [address] [place] [address] [place] CO2 [Moles/Vol] 25 mmol/L Normal 22-30 [facility] Comment on above: Order Comment: Speci men Type: BLOOD SPECIMEN Ordering Facility: [facility] Address: [address] [place] [address] Performed By: #### T NT #### [facility] CLIA [id number] [address] [place] [address] [place] Creatinine [Mass/Vol] 0.89 mg/dL Normal 0.73-1.22 [facility] Comment on above: Order Comment: Speci men Type: BLOOD SPECIMEN Ordering Facility: [facility] Address: [address] [place] [address] Performed By: #### T NT #### [facility] CLIA [id number] [address] [place] [address] [place] ESTIMATED GLOMERULAR FILTRATION RATE 90 mL/min/1.73m??? Normal >=60 [facility] Comment on above: Order Comment: Fernanda franks Type: BLOOD SPECIMEN Ordering Facility: [facility] Address: [address] [place] [address] Result Comment: Kalani mated Glomerular Filtration Rate [...] GFR. Performed By: #### T NT #### [facility] CLIA [id number] [address] [place] [address] [place] Glucose [Mass/Vol] 100 mg/dL High 74-99 [facility] Comment on above: Order Comment: Fernanda franks Type: BLOOD SPECIMEN Ordering Facility: [facility] Address: [address] [place] [address] Result Comment: The [place] Diabetes Association (ADA) provides guidance for cutoff [...] Standards of Medical Care in Diabetes 2016, [place] [employer]. Diabetes Care. 2016.39(Suppl 1). Performed By: #### T NT #### [facility] CLIA [id number] [address] [place] [address] [place] Potassium [Moles/Vol] 4.2 mmol/L Normal 3.7-5.1 [facility] Comment on above: Order Comment: Fernanda franks Type: BLOOD SPECIMEN Ordering Facility: [facility] Address: [address] [place] [address] Performed By: #### T NT #### [facility] CLIA [id number] [address] [place] [address] Protein [Mass/Vol] 7.0 g/dL Normal 6.3-8.0 [facility] Comment on above: Order Comment: Fernanda franks Type: BLOOD SPECIMEN Ordering Facility: [facility] Address: [address] [address] Performed By: #### T NT #### [facility] CLIA [id number] [address] Sodium [Moles/Vol] 134 mmol/L Low 136-144 [facility] Comment on above: Order Comment: Fernanda franks Type: BLOOD SPECIMEN Ordering Facility: [facility] Address: [address] [place] [address] Performed By: #### T NT #### [facility] CLIA [id number] [address] Urea nitrogen [Mass/Vol] 16 mg/dL Normal 9-24 [facility] Comment on above: Order Comment: Fernanda franks Type: BLOOD SPECIMEN Ordering Facility: [facility] Address: [address] [place] [address] Performed By: #### T NT #### [facility] CLIA [id number] [address] ED PROV NOTEon 11-11-2022 ED PROV NOTE HNO ID: [id number] Author: Yanni Quezada MD Service: ? Author [...] 1991 Hip arthritis HTN (hypertension) Leukocytosis 1986 [place] admission - thought leukemia and he refused [...] nursing note reviewed. Exam conducted with a well logging mud analysis captain present. Constitutional: Appearance: Normal appearance. HENT: Head: [...] following components: Result Value Ref Range Abs [place] 1.00 (*) <0.87 k/uL All other components [...] Normal EX (more content not included)... Normal [facility] Magnesium SerPl-mCncon 11-11 Magnesium [Mass/Vol] 2.0 mg/dL Normal 1.7-2.3 [facility] Comment on above: Order Comment: Speci men Type: BLOOD SPECIMEN Ordering Facility: [facility] Address: [address] [place] [address] Performed By: #### T NT #### [facility] CLIA [id number] [address] [place] [address] [place] SARS-CoV-2 RNA Resp Ql CORIN+p pily 11-11-2022 SARS-CoV-2 (COVID-19) RNA CORIN+probe Ql (Resp) COVID 19 RESULT: SARS-CoV-2 (Agent of COVID-19) Not Detected by RT-PCR or equivalent method. This test has been authorized by FDA under an Emergency Use Authorization (EUA). Normal [facility] Comment on above: Performed By: #### 9 4500-6 ####[facility]ORATORYCLIA [id number] [address] Urinalysis complete panel (U )on 11-11-2022 Bacteria LM.HPF (Urine sed) [#/Area] Rare Abnormal None Seen [facility] Comment on above: Order Comment: Speci men Type: URINE SPECIMEN Ordering Facility: [facility] Address: [address] [place] [address] Performed By: #### 2 4356-8 #### [facility] CLIA [id number] [address] Bilirubin Ql (U) Negative Normal Negative [facility] Comment on above: Order Comment: Speci men Type: URINE SPECIMEN Ordering Facility: [facility] Address: [address] [place] [address] Performed By: #### 2 4356-8 #### [facility] CLIA [id number] [address] Clarity (Unsp spec) Clear Normal Clear [facility] Comment on above: Order Comment: Speci men Type: URINE SPECIMEN Ordering Facility: [facility] Address: [address] [place] [address] Performed By: #### 2 4356-8 #### [facility] CLIA [id number] [address] Color (U) Yellow Normal Yellow [facility] Comment on above: Order Comment: Speci men Type: URINE SPECIMEN Ordering Facility: [facility] Address: [address] [place] [address] Performed By: #### 2 4356-8 #### [facility] CLIA [id number] [address] [place] Glucose Test strip (U) [Mass/Vol] Negative Normal Negative [facility] Comment on above: Order Comment: Speci men Type: URINE SPECIMEN Ordering Facility: [facility] Address: [address] [place] [address] Performed By: #### 2 4356-8 #### [facility] CLIA [id number] [address] [place] [address] [place] Hemoglobin Ql (U) Negative Normal Negative, Trace [facility] Comment on above: Order Comment: Speci men Type: URINE SPECIMEN Ordering Facility: [facility] Address: [address] [place] [address] Performed By: #### 2 4356-8 #### [facility] CLIA [id number] [address] Ketones Ql (U) Negative Normal Negative [facility] Comment on above: Order Comment: Speci men Type: URINE SPECIMEN Ordering Facility: [facility] Address: [address] [place] [address] Performed By: #### 2 4356-8 #### [facility] CLIA [id number] [address] Leukocyte esterase Test strip Ql (U) Negative Normal Negative [facility] Comment on above: Order Comment: Speci men Type: URINE SPECIMEN Ordering Facility: [facility] Address: [address] [place] [address] Performed By: #### 2 4356-8 #### [facility] CLIA [id number] [address] [place] Nitrite Ql (U) Negative Normal Negative [facility] Comment on above: Order Comment: Speci men Type: URINE SPECIMEN Ordering Facility: [facility] Address: [address] [place] [address] Performed By: #### 2 4356-8 #### [facility] CLIA [id number] [address] [place] pH (U) 6.0 [pH] Normal 5.0-8.0 [facility] Comment on above: Order Comment: Speci men Type: URINE SPECIMEN Ordering Facility: [facility] Address: [address] [place] [address] Performed By: #### 2 4356-8 #### [facility] CLIA [id number] [address] Protein (U) [Mass/Vol] Negative Normal Negative [facility] Comment on above: Order Comment: Speci men Type: URINE SPECIMEN Ordering Facility: [facility] Address: [address] [place] [address] Performed By: #### 2 4356-8 #### [facility] CLIA [id number] [address] RBC LM.HPF (Urine sed) [#/Area] 0-3 /HPF Normal 0-3 /HPF [facility] Comment on above: Order Comment: Speci men Type: URINE SPECIMEN Ordering Facility: [facility] Address: [address] [place] [address] Performed By: #### 2 4356-8 #### [facility] CLIA [id number] [address] Specific gravity (U) [Rel density] 1.025 Normal 1.005-1.030 [facility] Comment on above: Order Comment: Speci men Type: URINE SPECIMEN Ordering Facility: [facility] Address: [address] [place] [address] Performed By: #### 2 4356-8 #### [facility] CLIA [id number] [address] Urobilinogen Ql (U) 0.2 EU/dL Normal 0.2-1.0 EU/dL [facility] Comment on above: Order Comment: Speci men Type: URINE SPECIMEN Ordering Facility: [facility] Address: [address] [place] [address] Performed By: #### 2 4356-8 #### [facility] CLIA [id number] [address] WBC LM.HPF (Urine sed) [#/Area] 0-5 /HPF Normal 0-5 /HPF [facility] Comment on above: Order Comment: Speci men Type: URINE SPECIMEN Ordering Facility: [facility] Address: [place] [address] Performed By: #### 2 4356-8 #### [facility] CLIA [id number] [address] [place] [address] [place] XR Ribs - left Views and Teresa st PAon 11-03-2022 IMPRESSION: Fractures of the anterolateral seventh through 10th ribs. No pneumothorax. Bicycle Rental Clerk: PSCB Transcribe Date/Time: Nov 03 2022 1:46P Dictated by : GISELLE FLORES MD This examination was interpreted and the report reviewed and electronically signed by: GISELLE FLORES MD on Nov 03 2022 1:51PM [facility] DIVISION OF RADIOLOGY * * *Final Report* [...] through 10th ribs. DIVISION OF RADIOLOGY Provider, [facility] - 11/03/2022 * * *Final Report* * [...] anterolateral seventh through 10th ribs. No pneumothorax. Bicycle Rental Clerk: AMANDA Transcribe Date/Time: Nov 03 2022 1:46P Dictated by : GISELLE FLORES MD This examination was interpreted and the report reviewed and electronically signed by: GISELLE FLORES MD on Nov 03 2022 1:51PM EST [facility] XR Ribs - left Views and Teresa st PAOrdered By: [facility] Provider on 11-03-2022 [facility] XR Ribs - left Views and Teresa st PAon 11-02-2022 Radiology Study observation (narrative) [facility] MRI CERVICAL SPINE WO IVCONo n 08-28-2022 [facility] CNPNon 08-25-2022 CNPN Telephone (NEADFV) MIROSLAVA PERALTA ([id number]) 1950 M [facility]* Date Time Provider Department 08/25/22 BROCK PORTILLO NEBARRYFV During your visit today, we recorded the following information about you: Doreen Casas 08/25/2022 11:15 AM Signed Patient called for the status of a letter he requested from the provider at his July visit, stating he cannot go up/down steps. Please mail this to him home address. Estelle Castaneda RN 08/25/2022 12:18 PM Signed Will forward for review. Estelle Castaneda RN 08/26/2022 4:13 PM Signed Letter mailed to patient. Ginajulián Khanna 09/02/2022 11:44 AM Signed Received call from patient's daughter asking if patient can get order for handicap sticker. She states that patient had a fax but it needs to be plugged in before we fax the order. She would like to know if we could call the patient at [phone] first so patient can plug in fax then fax the order to [phone] (fax). She also wanted to know if [...] Diagnosis:Cervical myelopathy (HCC) [G95.9] Order(s):PARKING FOR HANDICAPPED [1952307] Order #: [id number] Prescriptions as of 09/02/2022 - gabapentin (NEURONTIN) [...] Status:Closed by ESTELLE CASTANEDA on 08/26/22 [facility] MRI BRAIN WO/W IVCONon 07-01 [facility] CNOVon 04-16-2022 CNOV Office Visit (NSFRVW ) SHUKRIMIROSLAVA CARDONA ([id number]) 1950 M [place]* Date Time Provider Department 04/16/22 11:30 AM MAYRA GALE NSFRVBernard During your visit today, we recorded the [...] which included preparing to see the patient, lmlb-hp-xrhp patient care, completing clinical documentation, obtaining and/or reviewing separately obtained history, performing a medically appropriate examination and counseling and educating the patient/family/caregiver. SIGNATURE: Mayra Gale PA-C PATIENT NAME: Miroslava Peralta DATE: April 16, 2022 TIME: 12:22 PM PAGER: Referring Provider: NAVIN ACKERMAN [[id number]] Allergies As of Date: 04/16/2022 Noted Allergy [...] - d (more content not included)... [facility] XR CERV OTHER 4V AP/LAT/OBLo n 04-09-2022 [facility] CNDSon 04-04-2022 CNDS HNO ID: [id number] Author: Steve Jo PA-C Service: Neurosurgery Author Type: Physician Rn Circulating Type: Discharge Summary Filed: 04/04/2022 9:23 AM Note Text: Attestation signed by Brock Portillo MD at 04/04/2022 12:25 PM Brock Portillo MD DISCHARGE SUMMARY NEUROLOGICAL [facility] PATIENT NAME: Miroslava Peralta ADMISSION DATE: 03/29/2022 DISCHARGE DATE: 04/04/2022 Attending Physician: Brock Portillo MD PCP: Navin Ackerman MD [phone] Code Status: Not on file Discharged Against [...] Implant Name Type Inv. Item Serial No. Hydraulic Jack Operator Lot No. LRB No. Used Action GRAFT DURAGEN PLUS BOVINE COLLAGEN MATRIX 2X2IN SOFT TISSUE PATCH - [id number] Framework - Tissue GRAFT DURAGEN PLUS BOVINE COLLAGEN MATRIX 2X2IN SOFT TISSUE PATCH [employer] NEURO [id number] N/A 1 Implanted Surgical Specimens: * No specimens in log * Incision/Procedure Start Time: 5:29 PM Incision Close/Procedure End Time: 6:35 PM Surgeon(s) and Role: * Brock Portillo MD - Primary Medical Services Coordinator: Radha Denny RN; Angely Medellin RN Physician Rn Circulating: Steve Jo PA-C Scrub Person: Jayjay Leon [...] - Lopressor [Metopro (more content not included)... [facility] NURSING PROGon 04-04-2022 NURSING PROG HNO ID: [id number] Author: Rachel Villanueva, RN Service: Nursing Author Type: Registered Nurse Type: Nursing Progress Note Filed: 04/04/2022 3:53 PM Note Text: Nursing Progress Note Patient Name: Miroslava Peralta Patient Location: [facility] Daily Note: 0836: Pt AxOx3, PERRLA, speech [...] This note was completed by: Rachel Villanueva [facility] THERAPY NTon 04-04-2022 THERAPY NT HNO ID: [id number] Author: Polo Steward, PT Service: Physical Therapy Author Type: Physical Therapist Type: Therapy (PT/OT/Speech/Resp) Filed: 04/04/2022 10:55 AM Note Text: Physical Therapy Re-Evaluation SERVICE DATE: 04/04/2022 SERVICE TIME: 0950 to 1020 ROOM: [place] [address] Recommended Discharge Disposition: Home PT Recommended Discharge [...] mobility-other;Muscle Weakness (generalized) Interventions Provided: Re-evaluation;Gait Training (78371) $ Reevaluation (36792) Billed Units: 1 unit Gait Training (26035) Treatment M (more content not included)... [facility] THERAPY NT HNO ID: [id number] Author: JULIA Chavez/L Service: Occupational Therapy Author Type: Occupational Therapist Type: Therapy (PT/OT/Speech/Resp) Filed: 04/04/2022 8:48 AM Note Text: Occupational Therapy Evaluation SERVICE DATE: 04/04/2022 SERVICE TIME: 809 to 833 ROOM: [place] [address] Recommended Discharge Disposition: Home OT Anticipated Discharge [...] (generalized);Unsteadiness on feet;Difficulty walking-musculoskeletal Interventions Provided: Evaluation;Self Skilled Nursing Management (75822) $ Evaluation-Low (34606) Billed Units: 1 unit Self Skilled Nursing Management (52169) Treatment Minutes: 9 $ Self Skilled Nursing Management (54654) Billed Units: 1 unit Training AND education [...] see discipline sp (more content not included)... [facility] CASE MANAGEMon 04-03-2022 CASE MANAGEM HNO ID: [id number] Author: MARGARITA Valdes Service: ? Author Type: Frame Wirer Type: Care Mgt Progress Note Filed: 04/03/2022 10:40 AM Note Text: CARE MANAGEMENT WEEKEND PLANNING NOTE DISCHARGE OR POSSIBLE DISCHARGE Date/Time: TBD Disposition: Home Care - Agency: [facility] Phone #: SOC Date: TBD, CONTACT WEEKEND CM TO FINALIZE Transport: Car Friends Other Concerns: Pt is from home alone on 2nd floor of apt complex. [facility] accepting pt. Pt will need F2F for HHC. Pt reports his friend will transport at [place]. Await medical clearance. Pt on bedrest until 9p tonight. Weekend Dish Stacker Pager #: [place] [phone] Wednesday AND Wednesday IMM Follow Up Copy Given: Yes Copy given to:: Patient Method: In Person SIGNATURE: MARGARITA Valdes PATIENT NAME: Miroslava Peralta DATE: April 03, 2022 TIME: 10:36 AM PAGER/CONTACT #: [phone] [facility] NURSING PROGon 04-03-2022 NURSING PROG HNO ID: [id number] Author: Sarah Angeles RN Service: Nursing Author Type: Registered Nurse Type: Nursing Progress Note Filed: 04/03/2022 2:12 PM Note Text: Nursing Progress Note Patient Name: Miroslava Peralta Patient Location: [facility] Daily Note: 1400 Dr Munoz paged regarding bedrest order status. Dr Portillo will come to see pt shortly. This note was completed by: Sarah Angeles [facility] NURSING PROG HNO ID: [id number] Author: Usha Sanchez RN Service: Nursing Author Type: Registered Nurse Type: Nursing Progress Note Filed: 04/03/2022 4:18 AM Note Text: Nursing Progress Note Patient Name: Miroslava Peralta [facility] Daily Note: Pt AOx3. VSS. Tolerating 2L NC, sats WNL. Medicated for pain over night. Initial post op dressing CDI, drain intact with minimal output. Bedrest as ordered. No further needs. Safety precautions maintained. This note was completed by: Usha Sanchez [facility] ANES POSTPROC EVALon 022 ANES POSTPROC EVAL HNO ID: [id number] Author: Larry Mc MD Service: Anesthesiology Author Type: Anesthesiologist Type: Anesthesia Postprocedure Evaluation Filed: 04/01/2022 6:58 PM Note Text: POST ANESTHESIA EVALUATION NOTE : 1950 Procedure Summary Date: 04/01/22 Room / Location: [place] [address] / OR Anesthesia Start: 1657 Anesthesia Stop: [...] 151/126 04/01/220 Temp 36 04/01/221857 Pulse 71 04/01/221856 Resp 17 04/01/221856 SpO2 98 % 04/01/221856 Vitals shown include [...] April 01, 2022 TIME: 6:58 PM CSN: [id number] [facility] ANES PRE-OPon 04-01-2022 ANES PRE-OP HNO ID: [id number] Author: Larry Mc MD Service: Anesthesiology Author [...] *May place a lumbar drain. Kit is Qoof #[id number] found in between 8 AND 10 on [...] and consent discussed: yes. Patient / Responsible Democrat agrees to proceed: yes Patient / Surrogate [...] of 04/01/2022 Medication Dose Route Frequency - [JAN Hold due to Transfer] traZODone 150 mg tab(s) (DESYREL) 150 mg ORAL AT BEDTIME - [JAN Hold due to Transfer] cephALEXin 500 mg cap(s) (KEFLEX) 500 mg ORAL q 6 H - [JAN Hold due to Transfer] NaCl 0.9% iv flush bag 20 mL INTRAVENOUS PRN - [JAN Hold due to Transfer] sodium chloride 0.9 [...] 4 mg INTRAVENOUS q 6 H - [JAN Hold due to Transfer] lidocaine 4 % 1 Patch (SALONPAS) 1 Patch TRANSDERMAL DAILY And - [JAN Hold due to Transfer] lidocaine patch - REMOVE OTHER AT BEDTIME And - [JAN Hold due to Transfer] lidocaine - VERIFY PATCH OTHER q 8 H - [JAN Hold due to Transfer] amLODIPine 10 mg tab(s) (NORVASC) 10 mg ORAL DAILY AT 9 PM - [JAN Hold due to Transfer] lisinopril 20 mg [...] Reported on 03/19/2022 (more content not included)... [facility] BRIEF OP NOTon 04-01-2022 BRIEF OP NOT HNO ID: [id number] Author: Brock Portillo MD Service: Neurosurgery Author Type: Physician Type: Brief Op Note Filed: 04/02/2022 6:19 AM Note Text: BRIEF OPERATIVE / PROCEDURE NOTE LOG ID: [id number] SURGERY/PROCEDURE DATE: 04/01/2022 INCISION/PROCEDURE START TIME: 5:29 PM INCISION CLOSE/PROCEDURE END TIME: 6:35 PM SURGEON(S)/PROCEDURALIST(S) AND MARINE PHOTOGRAPHER(S): Surgeon(s) and Role: * Brock Portillo MD - Primary Physician Rn Circulating: Steve Jo PA-C SURGERY/PROCEDURE(S): Lumbar wound hematoma evacuation and durotomy repair ANESTHESIA: General FINDINGS: leak through suture hole repaired primarily and with duraseal/duragen ESTIMATED BLOOD LOSS: 10 mls SPECIMENS: None COMPLICATIONS: None DRAINS: Subfascial drain PRE-OP/PRE-PROCEDURE DIAGNOSIS: Lumbar wound hematoma POST-OP/POST-PROCEDURE DIAGNOSIS: Lumbar wound hematoma SIGNATURE: Brock Portillo MD PATIENT NAME: Miroslava Peralta DATE: April 01, 2022 TIME: 6:26 PM [facility] CASE MANAGEMon 04-01-2022 CASE MANAGEM HNO ID: [id number] Author: MARGARITA Valdes Service: ? Author Type: Frame Wirer Type: Care Mgt Progress Note Filed: 04/01/2022 [...] Portillo. SIGNATURE: MARGARITA Valdes PATIENT NAME: Miroslava Peralta DATE: April 01, 2022 TIME: 11:58 AM PAGER/CONTACT #: [phone] [facility] NURSING PROGon 04-01-2022 NURSING PROG HNO ID: [id number] Author: Carmela Borrero RN Service: ? Author Type: Registered Nurse Type: Nursing Progress Note Filed: 04/02/2022 2:23 AM Note Text: Nursing Progress Note Patient Name: Miroslava Peralta Patient Location: [place] [address] [address] Daily Note: Pt return to floor from [...] monitor. This note was completed by: Carmela [facility] NURSING PROG HNO ID: [id number] Author: Karo Carvalho RN Service: ? Author Type: Registered Nurse Type: Nursing Progress Note Filed: 04/01/2022 9:55 AM Note Text: Nursing Progress Note Patient Name: Miroslava Peralta Patient Location: [facility] Daily Note: This note was completed by: Karo Carvalho vss npo for surgery denies c/o pain no sob no cp, Lungs cl po 98% dressing to back area dry intact c/o back aching 3/10 c/o chi leg numbness neuoropathy awaiting for surgery. [facility] OPERATIVE NOon 04-01-2022 OPERATIVE NO HNO ID: [id number] Author: Brock Portillo MD Service: Neurosurgery Author Type: Physician Type: Operative Report Filed: 04/06/2022 5:35 AM Note Text: OPERATIVE/PROCEDURE REPORT LOG ID: [id number] SURGERY/PROCEDURE DATE: 04/01/2022 INCISION/PROCEDURE START TIME: 5:29 PM INCISION CLOSE/PROCEDURE END TIME: 6:35 PM SURGEON(S)/PROCEDURALIST(S) AND MARINE PHOTOGRAPHER(S): Surgeon(s) and Role: * Brock Portillo MD - Primary Physician Rn Circulating: Steve Jo PA-C SURGERY/PROCEDURE(S): Lumbar wound hematoma [...] DATE: April 01, 2022 TIME: 6:30 PM [facility] 03-31-2022 [facility] HNO ID: [id number] Author: Chaplain Dung Service: Spiritual Care Author Type: Steam Turbine Operator Type: Allied Health Filed: 03/31/2022 4:21 PM Note Text: SPIRITUAL CARE PROGRESS NOTE SERVICE DATE: 03/31/2022 SERVICE TIME: 3:42 PM While rounding on the unit and per recommendation by the pt's nurse, I attempted to visit with the pt and he was on the phone. To contact the Spiritual Care Department: Please call [phone]. SIGNATURE: Chaplain Dung PATIENT NAME: Miroslava Peralta DATE: March 31, 2022 TIME: 4:20 PM PAGER/CONTACT #: [phone] [facility] CASE MGT INIT ASSESon 2021 CASE MGT INIT ASS HNO ID: [id number] Author: MARGARITA Valdes Service: ? Author Type: Frame Wirer Type: Care Mgt Initial Assessment Filed: 03/31/2022 10:50 AM Note Text: CARE MANAGEMENT: ASSESSMENT AND DISCHARGE PLAN SERVICE DATE: March 31, 2022 SERVICE TIME: 10:45 AM PRIMARY CARE PHYSICIAN: Navin Ackerman MD ADMISSION STATUS: Inpatient Needs Prior to Discharge: To Be Determined;Home Care Order [facility]: [facility] Patient/Occupational Health Technician Stated Goals: To have reduction in symptoms;To improve my functional status Health Insurance: [employer] Medicare Health Issues Impacting Discharge Plan: Uncontrolled Uncontrolled: pain, wound Last Discharge Date: 03/22/22 Is this Within the Past 30 days? Last discharge within 30 days: No Advance Directive: Current Advance Directive: None Front Desk Attendant Attempted to Assist with AD Completion: Yes [...] Walker Has the Patient Been in a Halfway Facility in the Past 30 days?: No SOCIAL: Living Arrangements: Home Lives With: Alone Financial Resources: Retired Primary Contact: Extended Emergency Contact Information Primary Emergency Contact: Saima Peralta Mobile Relation: Ex Spouse Secondary Emergency Contact: Ailin Knott Mobile Relation: Daughter Supportive Patient Contact:: Yes Caregiver AssessmentCaregiver is ready, willing and able to meet the patient's needs as recommended by the inter-professional team:: Yes Does the patient have an acute stroke diagnosis, or has the patient had a stroke during this admission?: No Patient's transition needs and plan for meeting these needs: [facility] Patient's perception of need for this admission: pain Medication Adherance I am convinced of the importance of my prescription medication: 0 - Agree Completely I worry that my prescription medication will do more harm than good to me : 0 - Disagree Completely I feel financially burdened by my yiv-hz-bqqmvw expenses for my prescription medication:: 0 - Disagree Completely Risk Score: 0 Patient is categorized as: Low risk < 2 Are you interested in bedside delivery of your medications? No Is Patient Psychosocially Complex?: No ASSESSMENT AND PLAN: Medical Needs: Medical Needs: Wound Care - active or potential Psychosocial Needs: Psychosocial Needs: None FREEDOM OF CHOICE EXPLAINED: [place] of Choice Given: Yes Level of Care [...] recommendations and provided FOC. Pt agreeable to [facility] and sts no preference in provider. SW sent referrals. Pt will need F2F. Friends to transport at [place]. SIGNATURE: MARGARITA Valdes PATIENT NAME: Miroslava Peralta DATE: March 31, 2022 TIME: 10:45 AM PAGER/CONTACT #: [phone] [facility] NURSING PROGon 03-31-2022 NURSING PROG HNO ID: [id number] Author: Carmela Borrero RN Service: ? Author Type: Registered Nurse Type: Nursing Progress Note Filed: 04/01/2022 4:22 AM Note Text: Nursing Progress Note Patient Name: Miroslava Peralta Patient [facility] Daily Note: Pt ambulating around pod with [...] This note was completed by: Carmela Borrero [facility] NURSING PROG HNO ID: [id number] Author: Karo Carvalho, RN Service: ? Author Type: Registered Nurse Type: Nursing Progress Note Filed: 03/31/2022 10:44 AM Note Text: Nursing Progress Note Patient Name: Miroslava Peralta Patient Location: [place] [address]/[facility] Daily Note: This note was completed by: Karo Carvalho vss answer questions up gait steady lungs cl po with in normal limits.No c/o cp no sob c/o back pain incision sutures in place. and bleeding dressing changed. pain 3/10 dull aching. medicated as needed. Up in chair numbness of lower extremities [facility] THERAPY NTon 03-31-2022 THERAPY NT HNO ID: [id number] Author: Melissa Jose, PT, DPT Service: ? Author Type: Physical Therapist Type: Therapy (PT/OT/Speech/Resp) Filed: 03/31/2022 9:50 AM Note Text: Physical Therapy Treatment SERVICE DATE: 03/31/2022 SERVICE TIME: 924 to 941 ROOM: [place] [address] Recommended Discharge Disposition: Home PT Recommended Discharge [...]
[2024-09-12 23:18] VITALS: BP 130/81; PULSE 87; RESP 13; TEMP 36.2; O2SAT 95; BMI 27.4
[2024-09-12] MEDS: 0.9% Normal Saline (1000mL) 1,000 ML 70 ML IV (23:57)
[2024-09-13] VITALS (7 sets, daily range): BP systolic 97–143; BP diastolic 64–91; PULSE 77–84; RESP 14–18; TEMP 36.3–37; O2SAT 94–96; BMI 27.4
[2024-09-13] MEDS: buPROPion (XL) 300 MG TABLET.XL PO ×2 (00:29→22:21)
[2024-09-13] MEDS: traZODone 50 MG Tablet PO ×2 (00:29→22:21)
[2024-09-13] MEDS: MELATONIN 10 MG TABLET 5 MG PO ×2 (00:29→22:20)
[2024-09-13] MEDS: Tamsulosin HCl 0.4 MG Capsule PO ×2 (00:30→22:21)
[2024-09-13] MEDS: Gabapentin 600 MG Tablet PO ×3 (00:30→22:20)
--- NOTE | 2024-09-13 01:10 | CT_ITS ---
STUDY: CT LUMBAR SPINE WITHOUT CONTRAST REASON FOR EXAM: Male, 74 years old patient with back pain after falls. Evaluate for compression fracture. RADIATION DOSAGE (If Supplied By Facility): CTDIvol = ( 26.25 ) mGy, DLP = ( 841.30 ) mGycm TECHNIQUE: The patient was scanned in a multi detector CT scanner. High resolution transaxial imaging was performed. Images were obtained from T10 to sacrum. Sagittal and coronal images were reconstructed. Individualized dose optimization techniques were used for this CT. COMPARISON: CT abdomen and pelvis dated September 28, 2023. FINDINGS: There is an exaggerated lumbar lordosis. There is no substantial scoliosis. The bones appear osteopenic. There is multilevel spondylosis of the lumbar spine. T12-L1: There is narrowing of the disc space with vacuum disc phenomenon. There is annular disc bulge and osteophyte complex. No foramina are narrowed. There is no central cord canal stenosis. L1-2: There is mild retrolisthesis at this level. There is narrowing of the disk. There is a disc bulge and osteophyte complex. Neural foramina are narrowed. The facet joints are within normal limits. There is no central cord canal stenosis. L2-3: There is moderately large annular disk bulge and osteophyte complex. There is mild degenerative arthropathy of the facet joints. Bilateral neuroforamina are moderately narrowed. There is moderate acquired central canal stenosis. L3-4: There is moderately large annular disk bulge and osteophyte complex. There is mild degenerative arthropathy of the facet joints. Bilateral neuroforamina are severely narrowed. There is moderate acquired central canal stenosis. L4-5: There are small endplate osteophytes. There is narrowing of the disk space with vacuum disk phenomenon. There is moderately severe degenerative arthropathy of bilateral facet joints. There is moderately severe acquired central canal stenosis. There is moderate narrowing of bilateral intervertebral neural foramina. L5-S1: There is mild retrolisthesis at this level. There is vacuum disc phenomenon. There is mild annular disk bulge and osteophyte complex. There is moderately severe degenerative arthropathy of the facet joints. Bilateral neuroforamina are narrowed. There is thickening of the ligamentum flavum. There is mild acquired central canal stenosis. Normal visualized paraspinous soft tissue structures. There is extensive atherosclerotic calcification of the arteries of the abdomen. There appear to be nonobstructing renal calculi measuring up to 1.2 cm in greatest dimension. CT/Spine Lumbar without Contrast IMPRESSION: 1. No CT evidence of acute compression or displaced fracture. 2. Moderately severe multilevel degenerative changes of lumbar spine with no foraminal narrowing and central acquired canal stenosis as described. Electronically Signed: Haley Olivier MD at 4:34 EDT ,
[2024-09-13 05:33] LABS: Absolute Lymphocyte Count 1.64 X10^3/uL (0.83-4.51); Absolute Neutrophil Count 4.4 X10^3/uL (2.0-7.7); Basophil# 0.09 X10^3/uL; Basophil% 1.2 % (0-1); Eosinophils% 6.7 % (0-5); Hematocrit 36.1 % (40-54); Hemoglobin 11.6 g/dL (13.0-16.5); Lymphocyte # 1.64 X10^3/ul (0.83-4.51); Lymphocyte % 21.9 % (19-41); Mean Corp Hgb Conc 32.1 g/dL (32-36); Mean Corpuscular Hgb 29.1 pg (27.0-32.0); Mean Corpuscular Volume 90.7 fL (80-94); Mean Platelet Vol. 9.2 fl (6.2-12.0); Monocyte# 0.86 X10^3/uL; Monocyte% 11.5 % (0-10); NRBC Flagged by Analyzer 0 % (0-5); Neutrophil # 4.37 X10^3/uL (2.7-7.7); Neutrophil % 58.2 % (47-70); Platelet Count 350 K/mm3 (150-450); RBC Distribution Width CV 13.5 % (11.6-14.6); RBC Distribution Width SD 45.2 fl (35.1-43.9); Red Blood Count 3.98 M/mm3 (4.6-6.2); White Blood Count 7.5 K/mm3 (4.4-11.0)
[2024-09-13] MEDS: Acetaminophen 325 MG Tablet 650 MG PO ×2 (05:37→20:47)
[2024-09-13 06:14] LABS: ALB/GLOB Ratio 0.7 RATIO (0.9-2.4); AST(SGOT) 5 U/L (15-37); Alanine Aminotransfer ALT/SGPT 11 U/L (16-61); Albumin, Serum 2.6 g/dL (3.2-5.0); Alkaline Phosphatase 55 U/L (45-117); Anion Gap 4 (5-15); BUN 18 mg/dL (7-18); BUN/Creat Ratio 17.3 RATIO (10-20); Calcium,Total 8.6 mg/dL (8.5-10.1); Chloride 110 mmol/L (98-107); Creatinine, Serum 1.04 mg/dL (0.70-1.30); EST Glomerular Filtration Rate 74 mL/min (>60); Est Glom Filt Rate - Afr Amer 90 mL/min (>60); Estimated Creatinine Clearance 65.36 ml/min; Globulin 3.6 g/dL (2.2-4.2); Glucose 127 mg/dL (74-106); Magnesium 2.2 mg/dL (1.6-2.6); Phosphorus 3.4 mg/dL (2.5-4.9); Potassium 3.8 mmol/L (3.5-5.1); Protein, Total 6.2 g/dL (6.4-8.2); Sodium Level 139 mmol/L (136-145)
[2024-09-13] MEDS: Potassium Chloride Oral Tablet 20 MEQ PO (08:48)
[2024-09-13] MEDS: Ferrous Sulfate 325 MG Tablet PO (08:48)
[2024-09-13] MEDS: amLODIPine 10 MG Tablet PO (08:49)
[2024-09-13] MEDS: Lisinopril 20 MG Tablet PO (08:49)
[2024-09-13] MEDS: Enoxaparin 40 MG/0.4 ML Syringe SC (08:49)
[2024-09-13] MEDS: Lactobacillis Acidophilus 1 CAP PO ×4 (08:49→22:21)
--- NOTE | 2024-09-13 09:45 | PN.HOSP_ITS ---
Subjective Subjective Doing well, no issues overnight. Feels better than when he came in. Objective Data Objective Data Vital Signs: Vital Signs Temp Pulse Resp BP Pulse Ox O2 Del Method 98.2 F 80 16 119/75 94 Room Air 09/13/24 08:41 09/13/24 08:41 09/13/24 08:41 09/13/24 08:41 09/13/24 08:41 09/13/24 08:54 Oxygen Delivery Method Room Air Weight: 197 lb 1.492 oz Body Mass Index (BMI) 27.4 Intake & Output: Intake and Output for Last 24 Hours 09/12/24 09/13/24 09/14/24 03:59 03:59 03:59 Intake Total 550 / 550 Output Total 600 / 600 500 / 500 Balance -50 / -50 -500 / -500 Lab / Micro Data 09/13/24 04:35 09/13/24 04:35 Labs: Laboratory Results - last 24 hr 09/12/24 19:12: WBC 11.5 H, RBC 4.42 L, Hgb 13.0, Hct 40.1, MCV 90.7, MCH 29.4, MCHC 32.4, RDW Std Deviation 45.3 H, RDW Coeff of Matthew 13.6, Plt Count 394, MPV 8.8, Immature Gran % (Auto) 0.400, Neut % (Auto) 78.8 H, Lymph % (Auto) 10.2 L, [place] % (Auto) 7.5, Eos % (Auto) 2.3, Baso % (Auto) 0.8, Absolute Neuts (auto) 9.0 H, Absolute Lymphs (auto) 1.17, Nucleated RBC % 0, Sodium 139, Potassium 4.1, Chloride 106, Carbon Dioxide 28.0, Anion Gap 5, BUN 19 H, Creatinine 1.35 H , Est GFR (MDRD) Af Amer 66, Est GFR (MDRD) Non-Af 55 L, BUN/Creatinine Ratio 14.1, Glucose 163 H, Calcium 9.4, Total Creatine Kinase 101 09/12/24 19:44: Urine Color Yellow, Urine Clarity Cloudy, Urine pH 7.0, Ur Specific [place] 1.010, Urine Protein 100 H, Urine Glucose (UA) Normal, Urine Ketones Negative, Urine Occult Blood 150 H, Urine Nitrite Positive H, Urine Bilirubin Negative, Urine Urobilinogen Normal, Ur Leukocyte Esterase 500 H, Urine RBC 10-25 SEEN, Urine WBC 50-100 SEEN, Ur Squamous Epith Cells 0 SEEN, Urine Bacteria 1+, Urine Mucus 0 SEEN 09/13/24 04:35: WBC 7.5, RBC 3.98 L, Hgb 11.6 L, Hct 36.1 L, MCV 90.7, MCH 29.1, MCHC 32.1, RDW Std Deviation 45.2 H, RDW Coeff of Matthew 13.5, Plt Count 350, MPV 9.2, Immature Gran % (Auto) 0.500, Neut % (Auto) 58.2, Lymph % (Auto) 21.9, [place] % (Auto) 11.5 H, Eos % (Auto) 6.7 H, Baso % (Auto) 1.2 H, Absolute Neuts (auto) 4.4, Absolute Lymphs (auto) 1.64, Nucleated RBC % 0, Sodium 139, Potassium 3.8, Chloride 110 H, Carbon Dioxide 25.0, Anion Gap 4 L, BUN 18, Creatinine 1.04, Estim Creat Clear Calc 65.36, Est GFR (MDRD) Af Amer 90, Est GFR (MDRD) Non-Af 74, BUN/Creatinine Ratio 17.3, Glucose 127 H, Calcium 8.6, Phosphorus 3.4, Magnesium 2.2, Total Bilirubin 0.20, AST 5 L, ALT 11 L, Alkaline Phosphatase 55, Total Protein 6.2 L, Albumin 2.6 L, Globulin 3.6, Albumin/Globulin Ratio 0.7 L, TSH 2.450 Radiography Diagnostic Testing: Radiology Impression Chest X-Ray 09/12/24 18:48 IMPRESSION: No radiographic evidence of acute cardiopulmonary disease. Electronically Signed: Tisha Gaxiola MD at 20:18 EDT , Brain CT 09/12/24 20:09 IMPRESSION: Small vessel ischemia. Low-attenuation foci within the bilateral external capsules and left basal ganglia consistent with old lacunar infarcts. Electronically Signed: Tisha Gaxiloa MD at 20:31 EDT , Lumbar Spine CT 09/13/24 01:[address]: [address] evidence of acute compression or displaced fracture. 2. Moderately severe multilevel degenerative changes of lumbar spine with no foraminal narrowing and central acquired canal stenosis as described. Electronically Signed: Haley Olivier MD at 4:34 EDT , Physical Exam Narrative General: Alert, Oriented x3, Cooperative, No apparent distress HEENT: Atraumatic, PERRLA, EOMI, Normocephalic Oral: Moist Mucosa Neck: Supple, No JVD Lungs: Diminished, Normal air movement, No rhonchi, No wheeze, No rales Cardiovascular: Regular rate, Regular Rhythm, Normal S1, Normal S2, No murmurs Abdomen: Soft, Non Tender, Non-Distended, No Hepato-splenomegaly Extremities: No edema, Capillary Refill Less than 3 Seconds Skin: No rashes, No breakdown Musculoskeletal: No Tenderness to Palpation of Joints or Extremities Neurological: No focal neurological deficits, motor and sensory exam at baseline Psych/Mental Status: Normal Affect, Appropriate Assessment & Plan Assessment/Plan (1) Acute cystitis with hematuria: PLAN: Plan 1. Acute UTI with generalized weakness and inability to complete ADLs ? Transition to Zosyn, he has had multiple cultures with Pseudomonas and Proteus in the past ? Complicated by the fact that he self catheterizes given his debility and living in a wheelchair due to cord compression status post lumbar left laminectomy ? PT/OT 2. Essential HTN ? Blood pressure stable ? Can resume his home medications ? We will monitor make adjustments as necessary 3. Anxiety/depression ? Stable ? Continue with his home medications 4. GERD ?Stable ? Continue with PPI DVT: Lovenox Charges/Coding Visit Charges Inpatient E&M: 98082 Subs Hosp L2
[2024-09-13] MEDS: Piperacil/Tazobactam 3.375 GM in 0.9% Normal Saline (50mL MB+) 50 ML IV ×2 (10:58→20:49)
[2024-09-13] MEDS: 0.9% Normal Saline (500mL Bag) 500 ML 15 ML IV (10:58)
--- NOTE | 2024-09-13 12:23 | CASEMGMT ---
IMMANUEL HOWE Assessment Face to Face with patient for initial transition planning/care coordination assessment. IMMANUEL HOWE introduced self and role at [facility], pt voices understanding. Pt is A&Ox4 and is resting comfortably in the chair and is calm. Care providers, pharmacy, and demographics verified. Admitting dx: Acute Cystitis, with microscopic Hematuria LACE Strata: 3 PCP: Aldo Zaidi Specialists: Pt states that he sees a urologist, neurologist, and an orthopedic doctor in [place] but cannot recall any of their names Preferred Pharmacy: [facility] Pres[facility] Benefit: Yes LNOK: Jocelin Man (Friend), Ailin Villalta (Daughter - Lives in [place]) Living Arrangements: Pt lives alone on the second level of an apartment complex with an elevator to access. Pt states that he is unable to manage using the flight of stairs ADLs/IADLs: Pt is currently requiring assistance. Pt states that he tries to be independent at home but has had multiple recent falls. Transportation: Insurance, Friends. Pt does not have family in the area. Pt denies current concerns DME: Pt has a medical alert system in place. W/C. FWW. Ext tub bench. Raised toilet seat. Grab bars. Pt has a chronic Dowling and has sufficient supplies and education for management. HHC/SNF: Hx with [facility] HH and [facility] TCU Pt?s goal: Gain more independence Plan: Anticipate SNF. If pt changes his mind and wants home, anticipate Home with HHC. See PT and OT notes. 6-Click is 15 (Per OT note). Pt states that he would eventually like to DC home but states that he wants additional therapy prior to returning home. Pt states that he is interested in attending a SNF to obtain this therapy prior to returning home. SW notified and to provide pt with list of options. Freeman Olivier RN, CM
--- NOTE | 2024-09-13 12:26 | CASEMGMT ---
Discharge Planning A list of?SNF providers including quality and resource use data and consistent with the patient's preferred geographic region, medical needs, and insurance network was created in CarePort Guide.? This list was provided to the SW. Doreen Salazar Discharge Planning Asst.
--- NOTE | 2024-09-13 13:02 | CASEMGMT ---
Social Work- A list of SNF providers including quality and resource use data and consistent with the patient?s preferred geographic region, medical needs, and insurance network were provided from the CarePort Guide. Pt did not recall speaking with RNCM, but was agreeable to choosing options for SNF. Pt had repeated confusion on outpatient vs. inpatient, locations, etc. SW provided education and support and will follow up with pt after he has had the opportunity to research and chose his FOC and alternates. MARGARITA Franco
--- NOTE | 2024-09-13 15:00 | NURSING ---
pulled gabapentin form [facility], checked pt blood pressure and it was 97/64, contacted physician about low BP and veneciaonis said to hold gabapentin. Returned gabapentin to [facility], witnessed by Maritza Artis RN.
--- NOTE | 2024-09-13 15:39 | CASEMGMT ---
Social Work- SW met with pt to follow up on SNF list. Pt selected TCU as FOC. No alternate options at this time; SW encouraged pt to review list for alternate options. SW completed referral to TCU. MARGARITA Franco
[2024-09-13] MEDS: 0.9% Saline Lock 10 ML Syringe IV ×2 (15:46→20:47)
[2024-09-13] MEDS: Meclizine 12.5 MG Tablet PO (17:46)
[2024-09-13] MEDS: Nystatin Powder 15gm Bottle 1 APPLIC TOPICAL (22:26)
[2024-09-14] MEDS: Piperacil/Tazobactam 3.375 GM in 0.9% Normal Saline (50mL MB+) 50 ML IV (04:58)
[2024-09-14] MEDS: Gabapentin 600 MG Tablet PO ×3 (05:04→22:15)
[2024-09-14 06:00] VITALS: BP 121/81; PULSE 75; RESP 14; TEMP 36.5; O2SAT 96
[2024-09-14 07:07] LABS: Absolute Lymphocyte Count 1.52 X10^3/uL (0.83-4.51); Absolute Neutrophil Count 4.7 X10^3/uL (2.0-7.7); Basophil# 0.12 X10^3/uL; Basophil% 1.6 % (0-1); Eosinophil# 0.51 X10^3/uL; Eosinophils% 6.8 % (0-5); Hematocrit 37.2 % (40-54); Hemoglobin 12.2 g/dL (13.0-16.5); Lymphocyte # 1.52 X10^3/ul (0.83-4.51); Lymphocyte % 20.2 % (19-41); Mean Corp Hgb Conc 32.8 g/dL (32-36); Mean Corpuscular Hgb 29.5 pg (27.0-32.0); Mean Corpuscular Volume 90.1 fL (80-94); Mean Platelet Vol. 9.1 fl (6.2-12.0); Monocyte# 0.71 X10^3/uL; Monocyte% 9.4 % (0-10); NRBC Flagged by Analyzer 0 % (0-5); Neutrophil # 4.66 X10^3/uL (2.7-7.7); Neutrophil % 61.7 % (47-70); Platelet Count 353 K/mm3 (150-450); RBC Distribution Width CV 13.6 % (11.6-14.6); RBC Distribution Width SD 44.9 fl (35.1-43.9); Red Blood Count 4.13 M/mm3 (4.6-6.2); White Blood Count 7.5 K/mm3 (4.4-11.0)
[2024-09-14 08:15] LABS: Anion Gap 7 (5-15); BUN 16 mg/dL (7-18); BUN/Creat Ratio 14.4 RATIO (10-20); Calcium,Total 8.7 mg/dL (8.5-10.1); Chloride 110 mmol/L (98-107); Creatinine, Serum 1.11 mg/dL (0.70-1.30); EST Glomerular Filtration Rate 69 mL/min (>60); Est Glom Filt Rate - Afr Amer 83 mL/min (>60); Estimated Creatinine Clearance 61.24 ml/min; Glucose 98 mg/dL (74-106); Magnesium 2.1 mg/dL (1.6-2.6); Phosphorus 3.4 mg/dL (2.5-4.9); Potassium 3.8 mmol/L (3.5-5.1); Sodium Level 138 mmol/L (136-145)
[2024-09-14 08:45] VITALS: BP 127/78; PULSE 75; RESP 18; TEMP 36.8; O2SAT 97
[2024-09-14] MEDS: Lisinopril 20 MG Tablet PO (08:57)
[2024-09-14] MEDS: Ferrous Sulfate 325 MG Tablet PO (08:57)
[2024-09-14] MEDS: Acetaminophen 325 MG Tablet 650 MG PO (08:57)
[2024-09-14] MEDS: Meclizine 12.5 MG Tablet PO (08:58)
[2024-09-14] MEDS: Lactobacillis Acidophilus 1 CAP PO ×3 (08:58→22:15)
[2024-09-14] MEDS: Enoxaparin 40 MG/0.4 ML Syringe SC (08:58)
[2024-09-14] MEDS: amLODIPine 10 MG Tablet PO (08:58)
[2024-09-14] MEDS: Potassium Chloride Oral Tablet 20 MEQ PO (08:58)
[2024-09-14] MEDS: Magnesium Hydroxide 30 ML UDC PO (08:58)
[2024-09-14] MEDS: Nystatin Powder 15gm Bottle 1 APPLIC TOPICAL ×2 (08:59→22:16)
--- NOTE | 2024-09-14 09:45 | PCM.PN.HOSP ---
Subjective Subjective Doing well, no issues overnight Objective Data Objective Data Vital Signs: Vital Signs Temp Pulse Resp BP Pulse Ox O2 Del Method 98.3 F 75 18 127/78 H 97 Room Air 09/14/24 08:45 09/14/24 08:45 09/14/24 08:45 09/14/24 08:45 09/14/24 08:45 09/14/24 08:45 Oxygen Delivery Method Room Air Weight: 197 lb 1.492 oz Body Mass Index (BMI) 27.4 Intake & Output: Intake and Output for Last 24 Hours 09/13/24 09/14/24 09/15/24 03:59 03:59 03:59 Intake Total 550 / 550 1102.25 / 1102.25 50 / 50 Output Total 600 / 600 2800 / 2800 1100 / 1100 Balance -50 / -50 -1697.75 / -1697.75 -1050 / -1050 Lab / Micro Data 09/14/24 06:21 09/14/24 06:21 Labs: Laboratory Results - last 24 hr 09/14/24 06:21: WBC 7.5, RBC 4.13 L, Hgb 12.2 L, Hct 37.2 L, MCV 90.1, MCH 29.5, MCHC 32.8, RDW Std Deviation 44.9 H, RDW Coeff of Matthew 13.6, Plt Count 353, MPV 9.1, Immature Gran % (Auto) 0.300, Neut % (Auto) 61.7, Lymph % (Auto) 20.2, [place] % (Auto) 9.4, Eos % (Auto) 6.8 H, Baso % (Auto) 1.6 H, Absolute Neuts (auto) 4.7, Absolute Lymphs (auto) 1.52, Nucleated RBC % 0, Sodium 138, Potassium 3.8, Chloride 110 H, Carbon Dioxide 22.0, Anion Gap 7, BUN 16, Creatinine 1.11, Estim Creat Clear Calc 61.24, Est GFR (MDRD) Af Amer 83, Est GFR (MDRD) Non-Af 69, BUN/Creatinine Ratio 14.4, Glucose 98, Calcium 8.7, Phosphorus 3.4, Magnesium 2.1 Micro: Microbiology 09/12/24 19:44 Urine, Catheterized Urine Culture - Final Proteus mirabilis Physical Exam Narrative General: Alert, Oriented x3, Cooperative, No apparent distress HEENT: Atraumatic, PERRLA, EOMI, Normocephalic Oral: Moist Mucosa Neck: Supple, No JVD Lungs: Diminished, Normal air movement, No rhonchi, No wheeze, No rales Cardiovascular: Regular rate, Regular Rhythm, Normal S1, Normal S2, No murmurs Abdomen: Soft, Non Tender, Non-Distended, No Hepato-splenomegaly Extremities: No edema, Capillary Refill Less than 3 Seconds Skin: No rashes, No breakdown Musculoskeletal: No Tenderness to Palpation of Joints or Extremities Neurological: No focal neurological deficits, motor and sensory exam at baseline Psych/Mental Status: Normal Affect, Appropriate Assessment & Plan Assessment/Plan (1) Acute cystitis with hematuria: PLAN: Plan 1. Acute UTI due to Proteus with generalized weakness and inability to complete ADLs ?Sensitivities demonstrate Rocephin would work ? Complicated by the fact that he self catheterizes given his debility and living in a wheelchair due to cord compression status post lumbar left laminectomy currently with Dowling in place, changed in the ER ? PT/OT, will likely need SNF on discharge 2. Essential HTN ? Blood pressure stable ? Can resume his home medications ? We will monitor make adjustments as necessary 3. Anxiety/depression ? Stable ? Continue with his home medications 4. GERD ?Stable ? Continue with PPI DVT: Niyanox Charges/Coding Visit Charges Inpatient E&M: 23683 Subs Hosp L2
[2024-09-14] MEDS: Ceftriaxone 1 GM/50 ML BAG IV (11:15)
--- NOTE | 2024-09-14 11:32 | CASEMGMT ---
Addendum entered by Doreen Salazar 09/14/24 12:11: [facility] declined d/t no bed availability. SW updated. Doreen Salazar DC Planning Asst. Original Note: Discharge Planning Referral sent via [facility] to [facility] [place]. Doreen Salazar DC Planning Asst.
--- NOTE | 2024-09-14 11:35 | CASEMGMT ---
Addendum entered by Kristine Archibald 09/14/24 12:57: Social Work- Pt decided that he would like SNF placement and is willing to consider referrals to [facility] and [facility]. DCA advised. Physician notified. MARGARITA Franco Addendum entered by Kristine Archibald 09/14/24 12:19: [facility] declined referral. Pt advised. Pt reports that he wants to d/c home. Pt reports that he has supports to utilize and did well with therapy. Physician and RNCM advised. MARGARITA Franco Original Note: Social Work- SW met with pt to discuss TCU declination. [facility] selected [facility] alternate [facility]. [facility] notified referral can be completed. MARGARITA Franco
[2024-09-14 12:13] VITALS: BMI 27.6
--- NOTE | 2024-09-14 12:44 | CASEMGMT ---
Discharge Planning Referral sent via [facility]Port to [facility]. Doreen Salazar DC Planning Asst.
[2024-09-14 14:35] VITALS: BP 107/67; PULSE 80; RESP 18; TEMP 36.8; O2SAT 99
[2024-09-14] MEDS: Meclizine HCl 25 MG Tablet PO ×2 (16:16→22:17)
[2024-09-14 22:13] VITALS: BP 143/60; PULSE 79; RESP 16; TEMP 36.9; O2SAT 97
[2024-09-14] MEDS: Tamsulosin HCl 0.4 MG Capsule PO (22:16)
[2024-09-14] MEDS: traZODone 50 MG Tablet PO (22:16)
[2024-09-14] MEDS: buPROPion (XL) 300 MG TABLET.XL PO (22:16)
[2024-09-14] MEDS: MELATONIN 10 MG TABLET 5 MG PO (22:16)
[2024-09-15 04:57] VITALS: BP 117/76; PULSE 79; RESP 16; TEMP 36.9; O2SAT 95
[2024-09-15] MEDS: Meclizine HCl 25 MG Tablet PO ×3 (05:00→22:27)
[2024-09-15] MEDS: Gabapentin 600 MG Tablet PO ×3 (05:01→22:27)
[2024-09-15 05:23] VITALS: BMI 28.2
[2024-09-15 09:24] VITALS: BP 103/72; PULSE 84; RESP 18; TEMP 36.2; O2SAT 94
[2024-09-15] MEDS: Nystatin Powder 15gm Bottle 1 APPLIC TOPICAL ×2 (09:30→22:26)
[2024-09-15] MEDS: Ferrous Sulfate 325 MG Tablet PO (09:31)
[2024-09-15] MEDS: amLODIPine 10 MG Tablet PO (09:31)
[2024-09-15] MEDS: Lisinopril 20 MG Tablet PO (09:31)
[2024-09-15] MEDS: Potassium Chloride Oral Tablet 20 MEQ PO (09:31)
[2024-09-15] MEDS: Lactobacillis Acidophilus 1 CAP PO ×4 (09:31→22:27)
[2024-09-15] MEDS: Enoxaparin 40 MG/0.4 ML Syringe SC (09:31)
[2024-09-15] MEDS: Ceftriaxone 1 GM/50 ML BAG IV (09:36)
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
--- NOTE | 2024-09-15 12:53 | CASEMGMT ---
Social Work- SW completed PASSR, green sheet, and transport and placed on chart for if pt receives precert. It is noted that pt cannot d/c until precert is obtained. Plan: [facility]; precert pending MARGARITA Franco
--- NOTE | 2024-09-15 13:56 | CHAPLAIN ---
Type of Pastoral Visit _x__ Initial Visit ___ Follow-up Visit ___ On-call Visit ___ General Patient Visit ___ Spiritual Assessment ___ Family Conference ___ Bereavement ___ Rapid Response ___ Code Blue ___ Other (describe below) Pastoral Care Referral From _x__ Patient ___ Family ___ Nurse ___ Physician ___ Supervisor Statement Clerks ___ Cushion Former ___ Other (describe below) Sacrament/Intervention _x__ Active listening ___ Anointing ___ Zoroastrian ___ Bereavement ___ Communion _x__ Ewelina exploration ___ _x__ Life review _x__ Prayer ___ Reconciliation ___ Sacrament of Sick _x__ Supportive presence ___ Wedding ___ Other (describe below) Pastoral Comments patient is welcoming and greets this verifier operator with some enthusiasm; pt gives updates on his health and that today he is not feeling well; pt is open about his ewelina in God and shares that I have not been praying and as close to God lately, so I need to improve on that ; pt welcomes presence and prayer and any future visit opportunities
[2024-09-15 14:50] VITALS: BP 96/81; PULSE 82; RESP 18; TEMP 36.6; O2SAT 96
--- NOTE | 2024-09-15 15:49 | PCM.PN.HOSP ---
Subjective Subjective Doing well, no issues overnight Objective Data Objective Data Vital Signs: Vital Signs Temp Pulse Resp BP Pulse Ox O2 Del Method 97.9 F 82 18 96/81 H 96 Room Air 09/15/24 14:50 09/15/24 14:50 09/15/24 14:50 09/15/24 14:50 09/15/24 14:50 09/15/24 14:50 Oxygen Delivery Method Room Air Weight: 202 lb 6.15 oz Body Mass Index (BMI) 28.2 Intake & Output: Intake and Output for Last 24 Hours 09/14/24 09/15/24 09/16/24 03:59 03:59 03:59 Intake Total 1102.25 / 1102.25 400 / 400 350 / 350 Output Total 2800 / 2800 2750 / 2750 930 / 930 Balance -1697.75 / -1697.75 -2350 / -2350 -580 / -580 Lab / Micro Data 09/14/24 06:21 09/14/24 06:21 Micro: Microbiology 09/12/24 19:44 Urine, Catheterized Urine Culture - Final Proteus mirabilis Physical Exam Narrative General: Alert, Oriented x3, Cooperative, No apparent distress HEENT: Atraumatic, PERRLA, EOMI, Normocephalic Oral: Moist Mucosa Neck: Supple, No JVD Lungs: Diminished, Normal air movement, No rhonchi, No wheeze, No rales Cardiovascular: Regular rate, Regular Rhythm, Normal S1, Normal S2, No murmurs Abdomen: Soft, Non Tender, Non-Distended, No Hepato-splenomegaly Extremities: No edema, Capillary Refill Less than 3 Seconds Skin: No rashes, No breakdown Musculoskeletal: No Tenderness to Palpation of Joints or Extremities Neurological: No focal neurological deficits, motor and sensory exam at baseline Psych/Mental Status: Normal Affect, Appropriate Assessment & Plan Assessment/Plan (1) Acute cystitis with hematuria: PLAN: Plan 1. Acute UTI due to Proteus with generalized weakness and inability to complete ADLs ?Sensitivities demonstrate Rocephin would work ? Complicated by the fact that he self catheterizes given his debility and living in a wheelchair due to cord compression status post lumbar left laminectomy currently with Dowling in place, changed in the ER ? PT/OT, will likely need SNF on discharge, currently awaiting pre-CERT otherwise medically stable for discharge 2. Essential HTN ? Blood pressure stable ? Can resume his home medications ? We will monitor make adjustments as necessary 3. Anxiety/depression ? Stable ? Continue with his home medications 4. GERD ?Stable ? Continue with PPI DVT: Niyanox Charges/Coding Visit Charges Inpatient E&M: 58909 Subs Hosp L1
[2024-09-15] MEDS: Ondansetron 4 MG/2 ML Vial IV (19:39)
[2024-09-15] MEDS: Acetaminophen 325 MG Tablet 650 MG PO (19:39)
[2024-09-15 22:25] VITALS: BP 119/72; PULSE 78; RESP 16; TEMP 36.9; O2SAT 96
[2024-09-15] MEDS: buPROPion (XL) 300 MG TABLET.XL PO (22:27)
[2024-09-15] MEDS: MELATONIN 10 MG TABLET 5 MG PO (22:28)
[2024-09-15] MEDS: traZODone 50 MG Tablet PO (22:28)
[2024-09-15] MEDS: Tamsulosin HCl 0.4 MG Capsule PO (22:28)
[2024-09-16 04:47] VITALS: BP 105/71; PULSE 73; RESP 16; TEMP 36.6; O2SAT 95
[2024-09-16] MEDS: Meclizine HCl 25 MG Tablet PO ×3 (04:51→21:38)
[2024-09-16] MEDS: Gabapentin 600 MG Tablet PO ×3 (04:51→21:38)
[2024-09-16 05:40] LABS: Absolute Lymphocyte Count 1.54 X10^3/uL (0.83-4.51); Absolute Neutrophil Count 6.1 X10^3/uL (2.0-7.7); Basophil# 0.12 X10^3/uL; Basophil% 1.3 % (0-1); Eosinophil# 0.43 X10^3/uL; Eosinophils% 4.8 % (0-5); Hematocrit 39.2 % (40-54); Hemoglobin 12.9 g/dL (13.0-16.5); Lymphocyte # 1.54 X10^3/ul (0.83-4.51); Lymphocyte % 17.1 % (19-41); Mean Corp Hgb Conc 32.9 g/dL (32-36); Mean Corpuscular Hgb 29.9 pg (27.0-32.0); Mean Corpuscular Volume 90.7 fL (80-94); Mean Platelet Vol. 8.9 fl (6.2-12.0); Monocyte# 0.84 X10^3/uL; Monocyte% 9.3 % (0-10); NRBC Flagged by Analyzer 0 % (0-5); Neutrophil # 6.05 X10^3/uL (2.7-7.7); Neutrophil % 66.9 % (47-70); Platelet Count 331 K/mm3 (150-450); RBC Distribution Width CV 13.7 % (11.6-14.6); Red Blood Count 4.32 M/mm3 (4.6-6.2)
[2024-09-16 06:00] VITALS: BMI 28.1
[2024-09-16 06:16] LABS: Anion Gap 4 (5-15); BUN 20 mg/dL (7-18); BUN/Creat Ratio 17.4 RATIO (10-20); Calcium,Total 8.7 mg/dL (8.5-10.1); Chloride 109 mmol/L (98-107); Creatinine, Serum 1.15 mg/dL (0.70-1.30); EST Glomerular Filtration Rate 66 mL/min (>60); Est Glom Filt Rate - Afr Amer 80 mL/min (>60); Estimated Creatinine Clearance 64.29 ml/min; Glucose 103 mg/dL (74-106); Potassium 4.1 mmol/L (3.5-5.1); Sodium Level 137 mmol/L (136-145)
[2024-09-16] MEDS: amLODIPine 10 MG Tablet PO (08:18)
[2024-09-16] MEDS: Lactobacillis Acidophilus 1 CAP PO ×4 (08:18→21:40)
[2024-09-16] MEDS: Ferrous Sulfate 325 MG Tablet PO (08:18)
[2024-09-16] MEDS: Enoxaparin 40 MG/0.4 ML Syringe SC (08:18)
[2024-09-16] MEDS: Potassium Chloride Oral Tablet 20 MEQ PO (08:18)
[2024-09-16] MEDS: Lisinopril 20 MG Tablet PO (08:18)
[2024-09-16] MEDS: Nystatin Powder 15gm Bottle 1 APPLIC TOPICAL ×2 (08:19→21:39)
--- NOTE | 2024-09-16 08:20 | PN.HOSP_ITS ---
Reason for Visit Reason for Visit: Diagnoses Overweight (09/12/24) Polyneuropathy, unspecified (09/12/24) Benign paroxysmal vertigo, unspecified ear (09/12/24) Dorsalgia, unspecified (09/12/24) Acute cystitis with hematuria (09/12/24) Neuromuscular dysfunction of bladder, unspecified (09/12/24) Difficulty in walking, not elsewhere classified (09/12/24) Repeated falls (09/12/24) Dizziness and giddiness (09/12/24) Weakness (09/12/24) Other specified health status (09/12/24) Other specified postprocedural states (09/12/24) Subjective Subjective Patient is a 74-year-old gentleman admitted with progressive generalized weakness. Patient was found to have acute cystitis admitted to regular nursing floor where patient is currently being managed Objective Data Objective Data Vital Signs: Vital Signs Temp Pulse Resp BP Pulse Ox O2 Del Method 97.9 F 73 16 105/71 95 Room Air 09/16/24 04:47 09/16/24 04:47 09/16/24 04:47 09/16/24 04:47 09/16/24 04:47 09/16/24 04:47 Oxygen Delivery Method Room Air Weight: 91.6 kg Body Mass Index (BMI) 28.1 Intake & Output: Intake and Output for Last 24 Hours 09/14/24 09/15/24 09/16/24 23:59 23:59 23:59 Intake Total 150 / 150 850 / 850 200 / 200 Output Total 3600 / 3600 1955 / 1955 750 / 750 Balance -3450 / -3450 -1105 / -1105 -550 / -550 Lab / Micro Data 09/16/24 05:22 09/16/24 05:22 Labs: Laboratory Results - last 24 hr 09/16/24 05:22: WBC 9.0, RBC 4.32 L, Hgb 12.9 L, Hct 39.2 L, MCV 90.7, MCH 29.9, MCHC 32.9, RDW Std Deviation 46.0 H, RDW Coeff of Matthew 13.7, Plt Count 331, MPV 8.9, Immature Gran % (Auto) 0.600, Neut % (Auto) 66.9, Lymph % (Auto) 17.1 L, [place] % (Auto) 9.3, Eos % (Auto) 4.8, Baso % (Auto) 1.3 H, Absolute Neuts (auto) 6.1, Absolute Lymphs (auto) 1.54, Nucleated RBC % 0, Sodium 137, Potassium 4.1, Chloride 109 H, Carbon Dioxide 24.0, Anion Gap 4 L, BUN 20 H, Creatinine 1.15, Estim Creat Clear Calc 64.29, Est GFR (MDRD) Af Amer 80, Est GFR (MDRD) Non-Af 66, BUN/Creatinine Ratio 17.4, Glucose 103, Calcium 8.7 Micro: Microbiology 09/12/24 19:44 Urine, Catheterized Urine Culture - Final Proteus mirabilis Physical Exam Narrative GENERAL: cooperative HEENT: Atraumatic; normocephalic EYES; Anicteric, Normal Conjunctiva NECK; supple, normal thyroid, RESPIRATORY: Diminished to auscultation CARDIOVASCULAR: Regular S1 S2, GI: soft, normoactive bowel sounds, : No Renal angle tenderness; EXTREMITIES: No edema, no clubbing, MUSCULOSKELETAL: muscle wasting involving upper extremities NEURO: Awake; no lateralizing signs. SKIN: No Rash PSYCH; Flat affect Assessment & Plan Assessment/Plan (1) Acute cystitis with hematuria: PLAN: Plan Patient is a 74-year-old gentleman admitted with progressive generalized weakness. Patient was found to have acute cystitis admitted to regular nursing floor where patient is currently being managed 1. Acute cystitis with Proteus ? This is secondary to patient self-catheterization. Patient has been managed appropriately based on sensitivities 2. Physical debility ? Following left lumbar laminectomy patient is wheelchair-bound. Requested for PT OT eval and nursing home social worker to assist with discharge planning plans for patient to be [facility] pending insurance approval 3. Hypertension ? Blood pressure controlled, home medications continued with dose adjustment as needed 4. BPH with lower urinary obstructive symptoms - Patient treated with tamsulosin 5. Depression with anxiety ? Patient is on bupropion 6. Peripheral neuropathy ? Patient is on gabapentin 7. DVT prophylaxis ? On enoxaparin Time spent in the patient's overall evaluation,decision-making process, review of diagnostic data, adjustment of management, discussion with other providers, nursing nursing and ancillary staff involved in patient's care documentation, 38 Minutes Charges/Coding Visit Charges Inpatient E&M: 26369 Subs Hosp L2
[2024-09-16 08:44] VITALS: BP 113/72; PULSE 72; RESP 16; TEMP 36.8; O2SAT 94
[2024-09-16] MEDS: Ceftriaxone 1 GM/50 ML BAG IV (10:23)
[2024-09-16] MEDS: Acetaminophen 325 MG Tablet 650 MG PO ×2 (10:27→21:38)
[2024-09-16 13:28] VITALS: BP 109/68; PULSE 81; RESP 16; TEMP 36.8; O2SAT 94
[2024-09-16 20:00] VITALS: BP 126/83; PULSE 86; RESP 14; TEMP 36.7; O2SAT 98
[2024-09-16] MEDS: MELATONIN 10 MG TABLET 5 MG PO (21:39)
[2024-09-16] MEDS: Tamsulosin HCl 0.4 MG Capsule PO (21:39)
[2024-09-16] MEDS: traZODone 50 MG Tablet PO (21:39)
[2024-09-16] MEDS: buPROPion (XL) 300 MG TABLET.XL PO (21:40)
[2024-09-17 04:00] VITALS: BP 91/64; PULSE 73; RESP 14; TEMP 36.6; O2SAT 94
[2024-09-17 05:37] LABS: Absolute Lymphocyte Count 1.81 X10^3/uL (0.83-4.51); Absolute Neutrophil Count 4.8 X10^3/uL (2.0-7.7); Basophil# 0.11 X10^3/uL; Basophil% 1.3 % (0-1); Eosinophil# 0.51 X10^3/uL; Eosinophils% 6.3 % (0-5); Hematocrit 40.6 % (40-54); Hemoglobin 13.2 g/dL (13.0-16.5); Lymphocyte # 1.81 X10^3/ul (0.83-4.51); Lymphocyte % 22.2 % (19-41); Mean Corp Hgb Conc 32.5 g/dL (32-36); Mean Corpuscular Hgb 29.5 pg (27.0-32.0); Mean Corpuscular Volume 90.8 fL (80-94); Monocyte# 0.82 X10^3/uL; Monocyte% 10.1 % (0-10); NRBC Flagged by Analyzer 0 % (0-5); Neutrophil # 4.84 X10^3/uL (2.7-7.7); Neutrophil % 59.4 % (47-70); Platelet Count 339 K/mm3 (150-450); RBC Distribution Width CV 13.9 % (11.6-14.6); RBC Distribution Width SD 46.3 fl (35.1-43.9); Red Blood Count 4.47 M/mm3 (4.6-6.2); White Blood Count 8.2 K/mm3 (4.4-11.0)
[2024-09-17 06:03] LABS: Anion Gap 4 (5-15); BUN 20 mg/dL (7-18); Calcium,Total 8.8 mg/dL (8.5-10.1); Chloride 109 mmol/L (98-107); Creatinine, Serum 1.11 mg/dL (0.70-1.30); EST Glomerular Filtration Rate 69 mL/min (>60); Est Glom Filt Rate - Afr Amer 83 mL/min (>60); Estimated Creatinine Clearance 66.55 ml/min; Glucose 98 mg/dL (74-106); Magnesium 2.2 mg/dL (1.6-2.6); Phosphorus 3.2 mg/dL (2.5-4.9); Potassium 4.1 mmol/L (3.5-5.1); Sodium Level 136 mmol/L (136-145)
[2024-09-17] MEDS: Gabapentin 600 MG Tablet PO ×3 (06:25→21:40)
[2024-09-17] MEDS: Meclizine HCl 25 MG Tablet PO ×3 (06:25→21:39)
--- NOTE | 2024-09-17 07:20 | PCM.PN.HOSP ---
Reason for Visit Reason for Visit: Diagnoses Overweight (09/12/24) Polyneuropathy, unspecified (09/12/24) Benign paroxysmal vertigo, unspecified ear (09/12/24) Dorsalgia, unspecified (09/12/24) Acute cystitis with hematuria (09/12/24) Neuromuscular dysfunction of bladder, unspecified (09/12/24) Difficulty in walking, not elsewhere classified (09/12/24) Repeated falls (09/12/24) Dizziness and giddiness (09/12/24) Weakness (09/12/24) Other specified health status (09/12/24) Other specified postprocedural states (09/12/24) Subjective Subjective Uneventful night. Pre-CERT pending prior to transfer to [facility] Objective Data Objective Data Vital Signs: Vital Signs Temp Pulse Resp BP Pulse Ox O2 Del Method 97.8 F 73 14 91/64 94 Room Air 09/17/24 04:00 09/17/24 04:00 09/17/24 04:00 09/17/24 04:00 09/17/24 04:00 09/17/24 04:00 Oxygen Delivery Method Room Air Weight: 91.6 kg Body Mass Index (BMI) 28.1 Intake & Output: Intake and Output for Last 24 Hours 09/15/24 09/16/24 09/17/24 23:59 23:59 23:59 Intake Total 850 / 850 750 / 1250 800 / 800 Output Total 1955 / 1955 1350 / 2150 1600 / 1600 Balance -1105 / -1105 -600 / -900 -800 / -800 Lab / Micro Data 09/17/24 05:05 09/17/24 05:05 Labs: Laboratory Results - last 24 hr 09/17/24 05:05: WBC 8.2, RBC 4.47 L, Hgb 13.2, Hct 40.6, MCV 90.8, MCH 29.5, MCHC 32.5, RDW Std Deviation 46.3 H, RDW Coeff of Matthew 13.9, Plt Count 339, MPV 9.0, Immature Gran % (Auto) 0.700, Neut % (Auto) 59.4, Lymph % (Auto) 22.2, [place] % (Auto) 10.1 H, Eos % (Auto) 6.3 H, Baso % (Auto) 1.3 H, Absolute Neuts (auto) 4.8, Absolute Lymphs (auto) 1.81, Nucleated RBC % 0, Sodium 136, Potassium 4.1, Chloride 109 H, Carbon Dioxide 24.0, Anion Gap 4 L, BUN 20 H, Creatinine 1.11, Estim Creat Clear Calc 66.55, Est GFR (MDRD) Af Amer 83, Est GFR (MDRD) Non-Af 69, BUN/Creatinine Ratio 18.0, Glucose 98, Calcium 8.8, Phosphorus 3.2, Magnesium 2.2 Micro: Microbiology 09/12/24 19:44 Urine, Catheterized Urine Culture - Final Proteus mirabilis Physical Exam Narrative GENERAL: cooperative HEENT: Atraumatic; normocephalic EYES; Anicteric, Normal Conjunctiva NECK; supple, normal thyroid, RESPIRATORY: Diminished to auscultation CARDIOVASCULAR: Regular S1 S2, GI: soft, normoactive bowel sounds, : No Renal angle tenderness; EXTREMITIES: No edema, no clubbing, MUSCULOSKELETAL: muscle wasting involving upper extremities NEURO: Awake; no lateralizing signs. SKIN: No Rash PSYCH; Flat affect Assessment & Plan Assessment/Plan (1) Acute cystitis with hematuria: PLAN: Plan Patient is a 74-year-old gentleman admitted with progressive generalized weakness. Patient was found to have acute cystitis admitted to regular nursing floor where patient is currently being managed 1. Acute cystitis with Proteus ? This is secondary to patient self-catheterization. Patient has been managed appropriately based on sensitivities ? 09/17/2024 patient remains on ceftriaxone, made a switch to p.o. abx 2. Physical debility ? Following left lumbar laminectomy patient is wheelchair-bound. Requested for PT OT eval and professor of social work to assist with discharge planning plans for patient to be discharged to longterm facility pending insurance approval ? 09/17/2024;Uneventful night. Pre-CERT pending prior to transfer to [facility] 3. Hypertension ? Blood pressure controlled, home medications continued with dose adjustment as needed 4. BPH with lower urinary obstructive symptoms - Patient treated with tamsulosin 5. Depression with anxiety ? Patient is on bupropion 6. Peripheral neuropathy ? Patient is on gabapentin 7. DVT prophylaxis ? On enoxaparin Time spent in the patient's overall evaluation,decision-making process, review of diagnostic data, adjustment of management, discussion with other providers, nursing nursing and ancillary staff involved in patient's care documentation, 35 Minutes Charges/Coding Visit Charges Inpatient E&M: 21352 Subs Hosp L2
[2024-09-17] MEDS: Ferrous Sulfate 325 MG Tablet PO (08:23)
[2024-09-17] MEDS: Potassium Chloride Oral Tablet 20 MEQ PO (08:23)
[2024-09-17 08:28] VITALS: BP 105/86; PULSE 79; RESP 16; TEMP 36.6; O2SAT 94
[2024-09-17] MEDS: Lactobacillis Acidophilus 1 CAP PO ×4 (10:24→21:40)
[2024-09-17] MEDS: Enoxaparin 40 MG/0.4 ML Syringe SC (10:24)
[2024-09-17] MEDS: Nystatin Powder 15gm Bottle 1 APPLIC TOPICAL ×2 (10:24→21:41)
[2024-09-17] MEDS: amLODIPine 10 MG Tablet PO (10:25)
[2024-09-17] MEDS: Lisinopril 20 MG Tablet PO (10:25)
[2024-09-17] MEDS: Magnesium Hydroxide 30 ML UDC PO ×2 (10:27→21:41)
[2024-09-17] MEDS: Acetaminophen 325 MG Tablet 650 MG PO ×2 (14:01→21:39)
[2024-09-17] MEDS: Cephalexin 500 MG Capsule PO ×2 (14:01→21:40)
[2024-09-17] MEDS: 0.9% Saline Lock 10 ML Syringe IV (17:56)
[2024-09-17 19:57] VITALS: BP 133/80; PULSE 79; RESP 14; TEMP 36.9; O2SAT 96
[2024-09-17] MEDS: Tamsulosin HCl 0.4 MG Capsule PO (21:40)
[2024-09-17] MEDS: traZODone 50 MG Tablet PO (21:40)
[2024-09-17] MEDS: MELATONIN 10 MG TABLET 5 MG PO (21:40)
[2024-09-17] MEDS: buPROPion (XL) 300 MG TABLET.XL PO (21:41)
[2024-09-18 04:00] VITALS: BP 118/79; PULSE 74; RESP 14; TEMP 36.6; O2SAT 97
[2024-09-18 04:55] VITALS: BMI 28.0
[2024-09-18] MEDS: Meclizine HCl 25 MG Tablet PO ×2 (06:11→13:49)
[2024-09-18] MEDS: Cephalexin 500 MG Capsule PO ×2 (06:11→13:49)
[2024-09-18] MEDS: Gabapentin 600 MG Tablet PO ×2 (06:11→13:49)
[2024-09-18 06:42] LABS: Absolute Lymphocyte Count 1.55 X10^3/uL (0.83-4.51); Absolute Neutrophil Count 4.8 X10^3/uL (2.0-7.7); Basophil# 0.11 X10^3/uL; Basophil% 1.4 % (0-1); Eosinophil# 0.41 X10^3/uL; Eosinophils% 5.4 % (0-5); Hematocrit 40.4 % (40-54); Lymphocyte # 1.55 X10^3/ul (0.83-4.51); Lymphocyte % 20.3 % (19-41); Mean Corp Hgb Conc 32.2 g/dL (32-36); Mean Corpuscular Volume 90.2 fL (80-94); Mean Platelet Vol. 8.8 fl (6.2-12.0); Monocyte# 0.72 X10^3/uL; Monocyte% 9.4 % (0-10); NRBC Flagged by Analyzer 0 % (0-5); Neutrophil # 4.79 X10^3/uL (2.7-7.7); Platelet Count 338 K/mm3 (150-450); RBC Distribution Width CV 14.1 % (11.6-14.6); RBC Distribution Width SD 45.9 fl (35.1-43.9); Red Blood Count 4.48 M/mm3 (4.6-6.2); White Blood Count 7.6 K/mm3 (4.4-11.0)
--- NOTE | 2024-09-18 07:11 | PCM.PN.HOSP ---
Reason for Visit Reason for Visit: Diagnoses Overweight (09/12/24) Polyneuropathy, unspecified (09/12/24) Benign paroxysmal vertigo, unspecified ear (09/12/24) Dorsalgia, unspecified (09/12/24) Acute cystitis with hematuria (09/12/24) Neuromuscular dysfunction of bladder, unspecified (09/12/24) Difficulty in walking, not elsewhere classified (09/12/24) Repeated falls (09/12/24) Dizziness and giddiness (09/12/24) Weakness (09/12/24) Other specified health status (09/12/24) Other specified postprocedural states (09/12/24) Subjective Subjective Patient seen awaiting insurance precertification prior to being transferred to a [place] [facility] facility. Patient complains of being dizzy this a.m. blood pressure is low with systolic of 95 and diastolic of 71. Held patient antihypertensives Objective Data Objective Data Vital Signs: Vital Signs Temp Pulse Resp BP Pulse Ox O2 Del Method 97.8 F 74 14 118/79 97 Room Air 09/18/24 04:00 09/18/24 04:00 09/18/24 04:00 09/18/24 04:00 09/18/24 04:00 09/18/24 04:00 Oxygen Delivery Method Room Air Weight: 91.2 kg Body Mass Index (BMI) 28.0 Intake & Output: Intake and Output for Last 24 Hours 09/16/24 09/17/24 09/18/24 23:59 23:59 23:59 Intake Total 750 / 1250 1300 / 1300 Output Total 1350 / 2150 2950 / 2950 800 / 800 Balance -600 / -900 -1650 / -1650 -800 / -800 Lab / Micro Data 09/18/24 06:29 09/18/24 06:29 Labs: Laboratory Results - last 24 hr 09/18/24 06:29: WBC 7.6, RBC 4.48 L, Hgb 13.0, Hct 40.4, MCV 90.2, MCH 29.0, MCHC 32.2, RDW Std Deviation 45.9 H, RDW Coeff of Matthew 14.1, Plt Count 338, MPV 8.8, Immature Gran % (Auto) 0.500, Neut % (Auto) 63.0, Lymph % (Auto) 20.3, [place] % (Auto) 9.4, Eos % (Auto) 5.4 H, Baso % (Auto) 1.4 H, Absolute Neuts (auto) 4.8, Absolute Lymphs (auto) 1.55, Nucleated RBC % 0 Micro: Microbiology 09/12/24 19:44 Urine, Catheterized Urine Culture - Final Proteus mirabilis Physical Exam Narrative GENERAL: cooperative HEENT: Atraumatic; normocephalic EYES; Anicteric, Normal Conjunctiva NECK; supple, normal thyroid, RESPIRATORY: Diminished to auscultation CARDIOVASCULAR: Regular S1 S2, GI: soft, normoactive bowel sounds, : No Renal angle tenderness; EXTREMITIES: No edema, no clubbing, MUSCULOSKELETAL: muscle wasting involving upper extremities NEURO: Awake; no lateralizing signs. SKIN: No Rash PSYCH; Flat affect Assessment & Plan Assessment/Plan (1) Acute cystitis with hematuria: PLAN: Plan Patient is a 74-year-old gentleman admitted with progressive generalized weakness. Patient was found to have acute cystitis admitted to regular nursing floor where patient is currently being managed 1. Acute cystitis with Proteus ? This is secondary to patient self-catheterization. Patient has been managed appropriately based on sensitivities ? 09/17/2024 patient remains on ceftriaxone, made a switch to p.o. abx 2. Physical debility ? Following left lumbar laminectomy patient is wheelchair-bound. Requested for PT OT eval and oncology social worker to assist with discharge planning plans for [place] [facility] [place] [facility] pending insurance approval ? 09/17/2024;Uneventful night. Pre-CERT pending prior to transfer to [facility] 3. Hypertension ? Blood pressure controlled, home medications continued with dose adjustment as needed ? 09/18/2024; patient blood pressure relatively low this a.m. held antihypertensives as well as tamsulosin 4. BPH with lower urinary obstructive symptoms - Patient treated with tamsulosin ? 09/18/2024 tamsulosin held given relatively low blood 5. Depression with anxiety ? Patient is on bupropion 6. Peripheral neuropathy ? Patient is on gabapentin 7. DVT prophylaxis ? On enoxaparin Time spent in the patient's overall evaluation,decision-making process, review of diagnostic data, adjustment of management, discussion with other providers, nursing nursing and ancillary staff involved in patient's care documentation, 35 Minutes Charges/Coding Visit Charges Inpatient E&M: 57055 Subs Hosp L2
[2024-09-18 07:40] LABS: Anion Gap 7 (5-15); BUN 19 mg/dL (7-18); BUN/Creat Ratio 17.8 RATIO (10-20); Calcium,Total 8.6 mg/dL (8.5-10.1); Chloride 107 mmol/L (98-107); Creatinine, Serum 1.07 mg/dL (0.70-1.30); EST Glomerular Filtration Rate 72 mL/min (>60); Est Glom Filt Rate - Afr Amer 87 mL/min (>60); Glucose 158 mg/dL (74-106); Potassium 4.2 mmol/L (3.5-5.1); Sodium Level 139 mmol/L (136-145)
[2024-09-18] MEDS: Potassium Chloride Oral Tablet 20 MEQ PO (08:00)
[2024-09-18] MEDS: Ferrous Sulfate 325 MG Tablet PO (08:01)
[2024-09-18] MEDS: Lactobacillis Acidophilus 1 CAP PO ×2 (08:01→13:49)
[2024-09-18] MEDS: Nystatin Powder 15gm Bottle 1 APPLIC TOPICAL (08:02)
[2024-09-18] MEDS: Enoxaparin 40 MG/0.4 ML Syringe SC (08:02)
[2024-09-18 08:34] VITALS: BP 95/71; PULSE 83; RESP 16; TEMP 37; O2SAT 97
[2024-09-18 11:20] VITALS: BP 118/83; PULSE 76; RESP 16; TEMP 37; O2SAT 96
--- NOTE | 2024-09-18 13:16 | CASEMGMT ---
Discharge Planning [facility] has obtained auth to admit. SW and physician updated. Doreen Salazar DC Planinng Asst.
--- NOTE | 2024-09-18 14:00 | PCM.TXEXTCAR ---
Diet Diet Order/Speech Therapy: 09/12/24 23:18 Diet: Cardiac - Heart Healthy Food consistency:: Regular Liquid Consistency:: Regular/Thin Wound(s) bilat knees: Wound Type: multiple scabbed areas lt young: Wound Type: scabbed area lt gt toe and 2nd toe: Wound Type: multiple scabbed areas rt gt toe: Wound Type: end stage healing from scrape rt elbow: Wound Type: multiple scabbed areas above ear lt skull: Wound Type: healing old scabbed area Lft big toe: Wound Type: end stage healing from scrape right big toe and 2nd toe: Wound Type: end stage healing from scrape Therapies Physical Therapy: Eval and Treat Occupational Therapy: Eval and Treat Problem/Diagnosis (1) Acute cystitis with hematuria: Status: Acute Code(s): N30.01 - Acute cystitis with hematuria Plan Patient is a 74-year-old gentleman admitted with progressive generalized weakness. Patient was found to have acute cystitis admitted to regular nursing floor where patient is currently being managed 1. Acute cystitis with Proteus ? This is secondary to patient self-catheterization. Patient has been managed appropriately based on sensitivities ? 09/17/2024 patient remains on ceftriaxone, made a switch to p.o. abx 2. Physical debility ? Following left lumbar laminectomy patient is wheelchair-bound. Requested for PT OT eval and geriatric social work professor to assist with discharge planning plans for patient to be discharged to [facility] facility pending insurance approval ? 09/17/2024;Uneventful night. Pre-CERT pending prior to transfer to [facility] 3. Hypertension ? Blood pressure controlled, home medications continued with dose adjustment as needed ? 09/18/2024; patient blood pressure relatively low this a.m. held antihypertensives as well as tamsulosin 4. BPH with lower urinary obstructive symptoms - Patient treated with tamsulosin ? 09/18/2024 tamsulosin held given relatively low blood 5. Depression with anxiety ? Patient is on bupropion 6. Peripheral neuropathy ? Patient is on gabapentin 7. DVT prophylaxis ? On enoxaparin Time spent in the patient's overall evaluation,decision-making process, review of diagnostic data, adjustment of management, discussion with other providers, nursing nursing and ancillary staff involved in patient's care documentation, 35 Minutes Allergies/Procedures Done in Hospital Allergies diltiazem (From Cardizem) Adverse Reaction (Verified 06/21/24 15:43) unknown losartan (From Hyzaar) Adverse Reaction (Verified 06/21/24 15:43) unknown metoprolol (From Lopressor) Adverse Reaction (Verified 06/21/24 15:43) unknown valsartan (From Diovan) Adverse Reaction (Verified 06/21/24 15:43) unknown Type of Care/Length of Stay Estimated LOS: Convalescent Care Less Than 30 days Type of Care Needed: Skilled Rehab Potential: Good Prognosis: Good Additional Orders/Day of Discharge Day of Discharge: 09/18/24 Dietary and Speech Recommendations Dietitian Recommendations/Changes: Continue Cardiac diet to manage medical conditions. Discharge Plan Admission Admit Date/Time: 09/12/24 22:41 Attending Provider: Damaso Palacios Primary Care Provider: Marbella Zaidi Consulting Providers: Damaso Payne; Milan Carvalho Discharge Orders/Prescriptions Prescriptions: New albuterol sulfate 2.5 mg /3 mL (0.083 %) Solution For Nebulization 2.5 mg inhalation Q2H PRN PRN (Reason: SOB &/OR WHEEZING) Qty: 0 0RF melatonin 3 mg Tablet 3 mg PO QHS PRN PRN (Reason: Insomnia) Qty: 0 0RF cephalexin 500 mg Capsule 500 mg PO Q8 10 Days Qty: 30 0RF L.acidoph,saliva-B.bif-S.therm 175 mg Capsule 1 cap PO 1XD Qty: 0 0RF Continued gabapentin 300 mg capsule 600 mg PO TID tamsulosin 0.4 mg capsule 0.4 mg PO QHS trazodone 50 mg tablet 50 mg PO QHS Patient Comments: pt req an inccrease in dosage because 50mg isnt working for me bupropion HCl 300 mg tablet extended release 24 hr 300 mg PO DAILY melatonin 5 mg tablet 5 mg PO QHS acetaminophen 500 mg Tablet 1,000 mg PO Q6H PRN PRN (Reason: Pain Score 1-5) Qty: 0 0RF potassium chloride 20 mEq Tablet,Er Particles/Crystals 20 meq PO DAILYCM 30 Days Qty: 30 0RF ferrous sulfate 324 mg (65 mg iron) tablet,delayed release (DR/EC) PO DAILY Discontinued amlodipine 10 mg tablet 10 mg PO DAILY lisinopril 20 mg tablet 20 mg PO DAILY meclizine 12.5 mg tablet 12.5 mg PO TID Referrals / Follow Up: Marbella Zaidi PA [Primary Care Provider] - Within 2 Weeks Disposition Disposition (needs filled in before D/C Order can be placed): [facility]
--- NOTE | 2024-09-18 14:01 | PCM.DC.SUM ---
Providers Date of Admission: 09/12/24 Date of Discharge: 09/18/24 Primary Care Physician: AMANDO Robbins Reason For Visit: ACUTE CYSTITIS, WITH MICROSCOPIC HEMATURIA Diagnosis Discharge Diagnosis (1) Acute cystitis with hematuria: Status: Acute Code(s): N30.01 - Acute cystitis with hematuria Plan Patient is a 74-year-old gentleman admitted with progressive generalized weakness. Patient was found to have acute cystitis admitted to regular nursing floor where patient is currently being managed 1. Acute cystitis with Proteus ? This is secondary to patient self-catheterization. Patient has been managed appropriately based on sensitivities ? 09/17/2024 patient remains on ceftriaxone, made a switch to p.o. abx 2. Physical debility ? Following left lumbar laminectomy patient is wheelchair-bound. Requested for PT OT eval and social worker health services to assist with discharge planning plans for patient to be discharged to senior care facility pending insurance approval ? 09/17/2024;Uneventful night. Pre-CERT pending prior to transfer to [facility] 3. Hypertension ? Blood pressure controlled, home medications continued with dose adjustment as needed ? 09/18/2024; patient blood pressure relatively low this a.m. held antihypertensives as well as tamsulosin 4. BPH with lower urinary obstructive symptoms - Patient treated with tamsulosin ? 09/18/2024 tamsulosin held given relatively low blood 5. Depression with anxiety ? Patient is on bupropion 6. Peripheral neuropathy ? Patient is on gabapentin 7. DVT prophylaxis ? On enoxaparin Time spent in the patient's overall evaluation,decision-making process, review of diagnostic data, adjustment of management, discussion with other providers, nursing nursing and ancillary staff involved in patient's care documentation, 35 Minutes Medications at Discharge Home Medications gabapentin 300 mg capsule 600 mg PO TID NEUROPATHY 03/29/22 tamsulosin 0.4 mg capsule 0.4 mg PO QHS PROSTATE 03/11/23 bupropion HCl 300 mg 24 hr tablet, extended release 300 mg PO DAILY DEPRESSION 09/28/23 melatonin 5 mg tablet 5 mg PO QHS SLEEP 09/28/23 trazodone 50 mg tablet 50 mg PO QHS SLEEP 09/28/23 acetaminophen 500 mg tablet 1,000 mg (2 x 500 mg) PO Q6H PRN PRN Pain Score 1-5 #0 tabs 03/07/24 potassium chloride 20 mEq tablet,extended release(part/cryst) 20 meq PO DAILYCM 30 days #30 tabs 03/07/24 ferrous sulfate 324 mg (65 mg iron) tablet,delayed release mg PO DAILY supplement 09/12/24 L.acidophil,salivari-Bifido bifidum-Strep thermoph 175 mg capsule 1 cap PO 1XD #0 caps 09/18/24 albuterol sulfate 2.5 mg/3 mL (0.083 %) solution for nebulization 2.5 mg (3 mL) inhalation Q2H PRN PRN SOB &/OR WHEEZING #0 mL 09/18/24 cephalexin 500 mg capsule 500 mg PO Q8 10 days #30 caps 09/18/24 melatonin 3 mg tablet 3 mg PO QHS PRN PRN Insomnia #0 tabs 09/18/24 Physical Exam Narrative GENERAL: cooperative HEENT: Atraumatic; normocephalic EYES; Anicteric, Normal Conjunctiva NECK; supple, normal thyroid, RESPIRATORY: Diminished to auscultation CARDIOVASCULAR: Regular S1 S2, GI: soft, normoactive bowel sounds, : No Renal angle tenderness; EXTREMITIES: No edema, no clubbing, MUSCULOSKELETAL: muscle wasting involving upper extremities NEURO: Awake; no lateralizing signs. SKIN: No Rash PSYCH; Flat affect Weight / BMI Weight Weight: 91.2 kg Body Mass Index (BMI) 28.0 ABG / Lab / Microbiology Data 09/18/24 06:29 09/18/24 06:29 Laboratory: Laboratory Results - last 24 hr 09/18/24 06:29: WBC 7.6, RBC 4.48 L, Hgb 13.0, Hct 40.4, MCV 90.2, MCH 29.0, MCHC 32.2, RDW Std Deviation 45.9 H, RDW Coeff of Matthew 14.1, Plt Count 338, MPV 8.8, Immature Gran % (Auto) 0.500, Neut % (Auto) 63.0, Lymph % (Auto) 20.3, [place] % (Auto) 9.4, Eos % (Auto) 5.4 H, Baso % (Auto) 1.4 H, Absolute Neuts (auto) 4.8, Absolute Lymphs (auto) 1.55, Nucleated RBC % 0, Sodium 139, Potassium 4.2, Chloride 107, Carbon Dioxide 25.0, Anion Gap 7, BUN 19 H, Creatinine 1.07, Estim Creat Clear Calc 68.90, Est GFR (MDRD) Af Amer 87, Est GFR (MDRD) Non-Af 72, BUN/Creatinine Ratio 17.8, Glucose 158 H, Calcium 8.6 Microbiology: Microbiology 09/12/24 19:44 Urine, Catheterized Urine Culture - Final Proteus mirabilis D/C Instructions Discharge Diet: No restrictions Discharge Activity: Return to Normal Activity Call your doctor if you observe: Fever of 101 or Higher, Shortness of breath, Fainting spells and Chest pain Meaningful Use Info Meaningful Use Meaningful Use Diagnoses (Choose all that apply): None applicable Ischemic Stroke Statin Dosing Therapy Reference: STATIN DOSE THERAPY REFERENCE: * Patients > 75 years receive moderate or high dose statin therapy. * Patients 75 years or YOUNGER should receive HIGH intensity statin dose unless contraindicated. You will be required to document reason for non-treatment if statin daily dose does not meet guidelines. HIGH DOSE STATIN THERAPY DAILY Atorvastatin > than or = to 40 mg Rosuvastatin > than or = to 20 mg Amlodipine + Atorvastatin > than or = to 2.5/40 mg Ezetimibe + Simvastatin 10/80 mg Simvastatin 80mg Discharge Plan Admission Admit Date/Time: 09/12/24 22:41 Attending Provider: Damaso Palacios Primary Care Provider: Marbella Zaidi Consulting Providers: Damaso Payne; Milan Carvalho Discharge Orders/Prescriptions Prescriptions: New albuterol sulfate 2.5 mg /3 mL (0.083 %) Solution For Nebulization 2.5 mg inhalation Q2H PRN PRN (Reason: SOB &/OR WHEEZING) Qty: 0 0RF melatonin 3 mg Tablet 3 mg PO QHS PRN PRN (Reason: Insomnia) Qty: 0 0RF cephalexin 500 mg Capsule 500 mg PO Q8 10 Days Qty: 30 0RF L.acidoph,saliva-B.bif-S.therm 175 mg Capsule 1 cap PO 1XD Qty: 0 0RF Continued gabapentin 300 mg capsule 600 mg PO TID tamsulosin 0.4 mg capsule 0.4 mg PO QHS trazodone 50 mg tablet 50 mg PO QHS Patient Comments: pt req an inccrease in dosage because 50mg isnt working for me bupropion HCl 300 mg tablet extended release 24 hr 300 mg PO DAILY melatonin 5 mg tablet 5 mg PO QHS acetaminophen 500 mg Tablet 1,000 mg PO Q6H PRN PRN (Reason: Pain Score 1-5) Qty: 0 0RF potassium chloride 20 mEq Tablet,Er Particles/Crystals 20 meq PO DAILYCM 30 Days Qty: 30 0RF ferrous sulfate 324 mg (65 mg iron) tablet,delayed release (DR/EC) PO DAILY Discontinued amlodipine 10 mg tablet 10 mg PO DAILY lisinopril 20 mg tablet 20 mg PO DAILY meclizine 12.5 mg tablet 12.5 mg PO TID Referrals / Follow Up: Marbella Zaidi, PA [Primary Care Provider] - Within 2 Weeks Disposition Disposition (needs filled in before D/C Order can be placed): Intermediate Facility Charges/Coding Visit Charges Inpatient E&M: 81149 Disch Hosp >30min
--- NOTE | 2024-09-18 14:13 | CASEMGMT ---
Social Work Precert has been obtained.? Physician updated and pt is ready for discharge today.? PASSR form completed in [facility]. SW met with pt and they are agreeable to discharge plan as stated above.[facility] notified of discharge. Disposition:[facility], skilled level of care under convalescent stay. MARGARITA Franco
--- NOTE | 2024-09-18 14:40 | CASEMGMT ---
Discharge Planning Discharge orders, signed med list, and transport time sent to [facility] via [facility]. Physicians will transort patient by wheelchair at 3:30p. Nursing, SW, patient, and his friend (Jocelin) updated. Jocelin will text pts daughter (Ailin). Doreen Salazar DC Planning Asst.
== END 2024-09-18 15:34 | disposition skilled nursing facility (03) | DRG 699 ==
LOC: ED 22:11 → MS3 22:51
PROVIDERS: Family Medicine; Admitting Provider Internal Medicine; Emergency Provider Emergency Medicine; PCP Physician Assistant; Visit Provider Internal Medicine
DX: T83.518A Infection and inflammatory reaction due to other urinary catheter, initial encounter (principal); N30.01 Acute cystitis with hematuria; N13.8 Other obstructive and reflux uropathy; B15.9 Hepatitis A without hepatic coma; I10 Essential (primary) hypertension; F41.8 Other specified anxiety disorders; G62.9 Polyneuropathy, unspecified; K21.9 Gastro-esophageal reflux disease without esophagitis; H81.10 Benign paroxysmal vertigo, unspecified ear; M19.90 Unspecified osteoarthritis, unspecified site; E66.3 Overweight; Z68.27 Body mass index [BMI] 27.0-27.9, adult; N31.9 Neuromuscular dysfunction of bladder, unspecified; Z87.891 Personal history of nicotine dependence; R53.81 Other malaise; Z99.3 Dependence on wheelchair; B96.4 Proteus (mirabilis) (morganii) as the cause of diseases classified elsewhere; N40.1 Benign prostatic hyperplasia with lower urinary tract symptoms; R33.8 Other retention of urine; Z96.649 Presence of unspecified artificial hip joint; R29.6 Repeated falls; Z98.890 Other specified postprocedural states
CPT/HCPCS: 36415; 51702; 70450; 71045; 72131; 80048; 80053; 81001; 82550; 83735; 84100; 84443; 85025; 87077; 87086; 87088; 87186; 93005; 94668; 97116; 97162; 97166; 97530; 97535; 99285; J7030; J7040; A4216; J2405

== ENCOUNTER 2024-10-05 19:47 | Emergency (ER) | payer MEDICARE, SELFPAY ==
[2024-10-05 19:47] VITALS: BP 142/110; PULSE 112; RESP 22; TEMP 36.6; O2SAT 96
[2024-10-05 20:49] VITALS: BP 141/98; PULSE 94; RESP 18; TEMP 37.1; O2SAT 97
[2024-10-05 20:50] VITALS: BMI 28.3
[2024-10-05 20:53] LABS: Absolute Lymphocyte Count 1.23 X10^3/uL (0.83-4.51); Absolute Neutrophil Count 11.8 X10^3/uL (2.0-7.7); Basophil# 0.11 X10^3/uL; Basophil% 0.8 % (0-1); Eosinophil# 0.21 X10^3/uL; Eosinophils% 1.5 % (0-5); Hematocrit 42.1 % (40-54); Lymphocyte # 1.23 X10^3/ul (0.83-4.51); Lymphocyte % 8.5 % (19-41); Mean Corp Hgb Conc 33.3 g/dL (32-36); Mean Corpuscular Hgb 29.4 pg (27.0-32.0); Mean Corpuscular Volume 88.3 fL (80-94); Mean Platelet Vol. 8.7 fl (6.2-12.0); Monocyte# 1.04 X10^3/uL; Monocyte% 7.2 % (0-10); NRBC Flagged by Analyzer 0 % (0-5); Neutrophil # 11.78 X10^3/uL (2.7-7.7); Neutrophil % 81.4 % (47-70); Platelet Count 327 K/mm3 (150-450); RBC Distribution Width CV 14.2 % (11.6-14.6); RBC Distribution Width SD 45.6 fl (35.1-43.9); Red Blood Count 4.77 M/mm3 (4.6-6.2); White Blood Count 14.5 K/mm3 (4.4-11.0)
[2024-10-05] MEDS: Lidocaine Jelly 2% 20 ML Syringe (URO-JET) 1 APPLIC TOPICAL (20:53)
--- NOTE | 2024-10-05 20:56 | EX.ED.DYSGE1 ---
HPI History of Present Illness Chief Complaint: Complaint Detail of Chief Complaint: Penile pain for the past 3 hours Informant: patient Onset/Context/Timing Onset: Today and Hours Context: Sudden Onset Timing: Continuous Quality: Pain Location: Penis Current Severity: Severe Maximum Severity: Severe Worsened by: Patient believes due to his Dowling Relieved by: Nothing Associated Symptoms Associated Symptoms: No urine output from the Dowling Narrative Narrative: Patient states had indwelling Dowling for approxi-4 to 5 months due to neurogenic bladder. Dowling was last changed 1 month ago. He denies fever, chills night sweats. He denies nausea, vomit diarrhea. There is no history of trauma. He denies scrotal pain or swelling. He states the urine is leaking around the Dowling. Prior similar symptoms: No Recent Illness/Hospitalization: No PFSH [facility] Medical History Vision loss of right eye Anxiety Depression GERD (gastroesophageal reflux disease) Hypertension Right femoral fracture History of fractured rib (08/12/20) Anxiety Essential (primary) hypertension Hepatitis A Osteoarthritis Home Medications ?Medication ?Instructions ?Recorded ?Last Taken ?Type gabapentin 300 mg capsule 600 mg PO TID NEUROPATHY 03/29/22 09/13/24 00:30 History tamsulosin 0.4 mg capsule 0.4 mg PO QHS PROSTATE 03/11/23 09/13/24 00:30 History bupropion HCl 300 mg 24 hr tablet, 300 mg PO DAILY DEPRESSION 09/28/23 09/13/24 00:30 History extended release melatonin 5 mg tablet 5 mg PO QHS SLEEP 09/28/23 09/13/24 00:30 History trazodone 50 mg tablet 50 mg PO QHS SLEEP 09/28/23 09/13/24 00:30 History acetaminophen 500 mg tablet 1,000 mg (2 x 500 mg) PO Q6H PRN 03/07/24 Unknown Rx PRN Pain Score 1-5 #0 tabs potassium chloride 20 mEq 20 meq PO DAILYCM 30 days #30 tabs 03/07/24 09/12/24 08:00 Rx tablet,extended release(part/cryst) ferrous sulfate 324 mg (65 mg mg PO DAILY supplement 09/12/24 09/12/24 10:00 History iron) tablet,delayed release 324 mg L.acidophil,salivari-Bifido 1 cap PO 1XD #0 caps 09/18/24 Unknown Rx bifidum-Strep thermoph 175 mg capsule albuterol sulfate 2.5 mg/3 mL 2.5 mg (3 mL) inhalation Q2H PRN 09/18/24 Unknown Rx (0.083 %) solution for nebulization PRN SOB &/OR WHEEZING #0 mL cephalexin 500 mg capsule 500 mg PO Q8 10 days #30 caps 09/18/24 Unknown Rx melatonin 3 mg tablet 3 mg PO QHS PRN PRN Insomnia #0 09/18/24 Unknown Rx tabs cephalexin 500 mg capsule 500 mg PO Q6 #40 CAPSULES 10/05/24 Unknown Rx Allergy/AdvReac Type Severity Reaction Status Date / Time diltiazem (From Cardizem) AdvReac unknown Verified 10/05/24 19:47 losartan (From Hyzaar) AdvReac unknown Verified 10/05/24 19:47 metoprolol (From Lopressor) AdvReac unknown Verified 10/05/24 19:47 valsartan (From Diovan) AdvReac unknown Verified 10/05/24 19:47 Family History Mother Heart disease Cancer breast Sister Heart disease Surgical History History of lumbar laminectomy for spinal cord decompression History of shoulder surgery History of elbow surgery History of hip replacement Social History household members: none Smoking Status: Former smoker quit date: 11/22/92 pack-years: 46 alcohol intake: former year quit: 1991 substance use type: does not use ROS ROS ED Constitutional Constitutional ED: Denies chills, fever(s), subjective or sweats Eyes Eyes: Denies blurry vision, change in vision or diplopia ENT ENT ED: Denies ear pain, rhinorrhea or sore throat Cardiovascular Cardiovascular: Denies chest pain or palpitations Respiratory/Chest Respiratory/Chest: Denies cough, dyspnea or dyspnea on exertion Gastrointestinal Gastrointestinal: Reports abdominal pain; Denies constipation, diarrhea, melena, nausea or vomiting Genitourinary Genitourinary ED: Reports other Details: No urine output from Dowling ; Denies dysuria, hematuria or urinary frequency Musculoskeletal Musculoskeletal: Denies arthralgias, back pain or myalgias Hematologic/Lymphatic Hematologic/Lymphatic: Reports systems reviewed and no addt'l complaints, except as documented EXAM Physical Exam Const Vital Signs: 10/05/24 19:47 10/05/24 20:49 10/05/24 21:00 Temperature 97.8 F 98.8 F 98.8 F Temperature Source Temporal Oral Oral Pulse Rate 112 H 94 94 Respiratory Rate 22 H 18 18 Blood Pressure 142/110 H 141/98 H 141/98 H Blood Pressure Mean 120 112 112 Pulse Ox 96 97 97 Oxygen Delivery Method Room Air Room Air Room Air Positive well nourished Constitutional Narrative: Patient in obvious discomfort. Patient has indwelling Dowlnig with no urine noted in the bag. General Appearance ED: pallor; Negative for cyanotic, diaphoretic or NAD HEENT Reports moist mucous membranes HEENT Narrative: Head is atraumatic no cephalic. Ears normal. Eyes PERRL and EOMs intact bilaterally General Eye ED: Negative for pale conjunctiva or scleral icterus Neck no lymphadenopathy, supple and no JVD Resp normal respiratory effort and clear to auscultation bilaterally Cardio regular rate, regular rhythm, S1 normal heart sound, S2 normal heart sound and no murmurs GI no masses; Negative for non-tender, non-distended or hepatosplenomegaly GI Narrative: My opinion the bladder is distended on physical exam to percussion. He has significant tenderness in the suprapubic area. The urethral meatus is erythematous. There is purulent drainage noted. There is no urine in the Dowling. Bladder scan revealed 375 cc of fluid. Palpation: soft and tender suprapubic Narrative: Documented in the GI portion of the EMR Back/Spine no CVA tenderness Extremity normal to inspection Neuro oriented x3 and CN's II-XII intact bilaterally Sensorium / Orientation: alert Psych mental status grossly normal Skin no rashes or lesions noted, no wounds and skin turgor normal General Skin Exam: pallor; Negative for jaundice MDM MDM MDM Narrative Medical decision making narrative: Suspect patient has pain due to obstruction of his Dowling. Will have nurse change Dowling. Will obtain UA because of the drainage noted. As well as CBC to assess white count differential and BMP to assess renal function. Per review of old records no history of renal/kidney disease. Lab Data Attestation: I reviewed the patient's lab results. Labs: Laboratory Results - last 24 hr 10/05/24 10/05/24 20:40 21:05 WBC 14.5 H RBC 4.77 Hgb 14.0 Hct 42.1 MCV 88.3 MCH 29.4 MCHC 33.3 RDW Std Deviation 45.6 H RDW Coeff of Matthew 14.2 Plt Count 327 MPV 8.7 Immature Gran % (Auto) 0.600 Neut % (Auto) 81.4 H Lymph % (Auto) 8.5 L [place] % (Auto) 7.2 Eos % (Auto) 1.5 Baso % (Auto) 0.8 Absolute Neuts (auto) 11.8 H Absolute Lymphs (auto) 1.23 Nucleated RBC % 0 Sodium 136 Potassium 4.4 Chloride 106 Carbon Dioxide 24.0 Anion Gap 6 BUN 19 H Creatinine 1.26 Estim Creat Clear Calc 58.77 Est GFR (MDRD) Af Amer 72 Est GFR (MDRD) Non-Af 59 L BUN/Creatinine Ratio 15.1 Glucose 121 H Calcium 9.6 Urine Color Yellow Urine Clarity Turbid Urine pH 8.0 Ur Specific [place] 1.010 Urine Protein 100 H Urine Glucose (UA) Normal Urine Ketones Negative Urine Occult Blood 250 H Urine Nitrite Positive H Urine Bilirubin Negative Urine Urobilinogen Normal Ur Leukocyte Esterase 500 H Urine RBC 50-100 SEEN Urine WBC >100 SEEN Ur Squamous Epith Cells 0 SEEN Triple Phos Crystals 2+ Amorphous Sediment 2+ PHOS Urine Bacteria 4+ Urine Mucus 0 SEEN Treatment and Re-Evaluation :: Patient's pain resolved after Dowling was changed. There was significant drainage of cloudy turbulent urine. UA is consistent with infection. Urine culture was sent patient received dose of Rocephin. He be discharged to home on cephalexin for 10 days. Discharge Plan Triage Chief Complaint: Complaint ED Provider: Jd Murphy Dx/Rx/DC Orders Clinical Impression: Complicated urinary tract infection, Leukocytosis, Malfunction of Dowling catheter, Neurogenic bladder Instructions: ED Dowling Catheter, Care, ED Bladder Infection, Male (Adult) Prescriptions: New cephalexin 500 mg capsule 500 mg PO Q6 Qty: 40 0RF No Action gabapentin 300 mg capsule 600 mg PO TID tamsulosin 0.4 mg capsule 0.4 mg PO QHS trazodone 50 mg tablet 50 mg PO QHS Patient Comments: pt req an inccrease in dosage because 50mg isnt working for me bupropion HCl 300 mg tablet extended release 24 hr 300 mg PO DAILY melatonin 5 mg tablet 5 mg PO QHS acetaminophen 500 mg Tablet 1,000 mg PO Q6H PRN PRN (Reason: Pain Score 1-5) Qty: 0 0RF potassium chloride 20 mEq Tablet,Er Particles/Crystals 20 meq PO DAILYCM 30 Days Qty: 30 0RF ferrous sulfate 324 mg (65 mg iron) tablet,delayed release (DR/EC) PO DAILY albuterol sulfate 2.5 mg /3 mL (0.083 %) Solution For Nebulization 2.5 mg inhalation Q2H PRN PRN (Reason: SOB &/OR WHEEZING) Qty: 0 0RF melatonin 3 mg Tablet 3 mg PO QHS PRN PRN (Reason: Insomnia) Qty: 0 0RF cephalexin 500 mg Capsule 500 mg PO Q8 10 Days Qty: 30 0RF L.acidoph,saliva-B.bif-S.therm 175 mg Capsule 1 cap PO 1XD Qty: 0 0RF Primary Care Provider: Marbella Zaidi Referrals: Marbella Zaidi, PA [Primary Care Provider] - 3-5 Days Print Language: Armenian Disposition Disposition: Home, Self Care
[2024-10-05 21:00] VITALS: BP 141/98; PULSE 94; RESP 18; TEMP 37.1; O2SAT 97
[2024-10-05 21:06] LABS: Anion Gap 6 (5-15); BUN 19 mg/dL (7-18); BUN/Creat Ratio 15.1 RATIO (10-20); Calcium,Total 9.6 mg/dL (8.5-10.1); Chloride 106 mmol/L (98-107); Creatinine, Serum 1.26 mg/dL (0.70-1.30); EST Glomerular Filtration Rate 59 mL/min (>60); Est Glom Filt Rate - Afr Amer 72 mL/min (>60); Estimated Creatinine Clearance 58.77 ml/min; Glucose 121 mg/dL (74-106); Potassium 4.4 mmol/L (3.5-5.1); Sodium Level 136 mmol/L (136-145)
[2024-10-05 21:17] LABS: Mucous, Urine 0 SEEN /hpf (<or=2+); Squamous Epithelial Cells - UA 0 SEEN /hpf (0-5)
[2024-10-05 21:21] LABS: Color, Urine Yellow (Yellow); Glucose, Dipstick Normal (Normal); Ketone-Dipstick Negative (Negative); Leukocyte Esterase-Dipstick 500 /ul (Negative); Nitrite-Dipstick Positive (Negative); Occult Blood-Urine 250 /ul (Negative); Protein-Dipstick 100 mg/dl (Negative); Urine Bilirubin Dipstick Negative (Negative); Urine Clarity Turbid (Clear); Urine Urobilinogen Normal (Normal)
[2024-10-05 21:35] LABS: Bacteria 4+ /hpf (None Seen); White Blood Cells >100 SEEN /hpf (0-5)
[2024-10-05 21:37] LABS: Triple Phosphate Crystals Ur 2+ /hpf (<or=1+)
[2024-10-05 21:38] LABS: Amorphous Sediment 2+ PHOS; Red Blood Cells-Urine 50-100 SEEN /hpf (0-5)
[2024-10-05] MEDS: Ceftriaxone 2 GM in 0.9% Normal Saline (50mL MB+) 50 ML IV (21:52)
[2024-10-05 22:00] VITALS: BP 142/91; PULSE 97; RESP 16; TEMP 36.8; O2SAT 97
[2024-10-05 22:27] VITALS: BP 142/91; PULSE 97; RESP 16; TEMP 36.8; O2SAT 97
== END 2024-10-05 22:50 | disposition home or self-care (01) ==
PROVIDERS: Emergency Provider Emergency Medicine; PCP Physician Assistant; Referring Provider Emergency Medicine; Visit Provider Emergency Medicine
DX: T83.091A Other mechanical complication of indwelling urethral catheter, initial encounter (principal); N39.0 Urinary tract infection, site not specified; Z87.891 Personal history of nicotine dependence; I10 Essential (primary) hypertension; D72.829 Elevated white blood cell count, unspecified; N31.9 Neuromuscular dysfunction of bladder, unspecified; F32.A Depression, unspecified; Z79.899 Other long term (current) drug therapy; Z96.649 Presence of unspecified artificial hip joint
CPT/HCPCS: 51702; 80048; 81001; 85025; 87077; 87086; 87088; 87186; 96365; 99285; J7040; A4216; J0696

== ENCOUNTER 2024-11-19 16:05 | Emergency (ER) | payer MEDICARE, SELFPAY ==
[2024-11-19 16:06] VITALS: BP 116/75; PULSE 80; RESP 20; TEMP 36.6; O2SAT 97; BMI 27.4
--- NOTE | 2024-11-19 16:21 | EX.ED.DYSGE1 ---
HPI <AMANDO Saavedra - Last Filed: 11/19/24 18:53> History of Present Illness Chief Complaint: General Illness Narrative Narrative: 74 old male with history of neurogenic bladder and chronic indwelling Dowling presents with general complaints of allover pain from his neuropathy and concern for UTI. He says a home health nurse tested his urine about 6 weeks ago and was supposed to mail antibiotics to his house but they never arrived. He is also been out of his gabapentin for 6 weeks. States he has neuropathy in all his extremities with an unclear etiology. He is not diabetic. He denies fever or chills. He reports nausea without vomiting or abdominal pain. His Dowling catheter has been draining appropriately. PFS <AMANDO Saavedra - Last Filed: 11/19/24 18:53> [facility] Medical History Vision loss of right eye Anxiety Depression GERD (gastroesophageal reflux disease) Hypertension Right femoral fracture History of fractured rib (08/12/20) Anxiety Essential (primary) hypertension Hepatitis A Osteoarthritis Home Medications ?Medication ?Instructions ?Recorded ?Last Taken ?Type gabapentin 300 mg capsule 600 mg PO TID NEUROPATHY 03/29/22 09/13/24 00:30 History tamsulosin 0.4 mg capsule 0.4 mg PO QHS PROSTATE 03/11/23 09/13/24 00:30 History bupropion HCl 300 mg 24 hr tablet, 300 mg PO DAILY DEPRESSION 09/28/23 09/13/24 00:30 History extended release melatonin 5 mg tablet 5 mg PO QHS SLEEP 09/28/23 09/13/24 00:30 History trazodone 50 mg tablet 50 mg PO QHS SLEEP 09/28/23 09/13/24 00:30 History acetaminophen 500 mg tablet 1,000 mg (2 x 500 mg) PO Q6H PRN 03/07/24 Unknown Rx PRN Pain Score 1-5 #0 tabs potassium chloride 20 mEq 20 meq PO DAILYCM 30 days #30 tabs 03/07/24 09/12/24 08:00 Rx tablet,extended release(part/cryst) ferrous sulfate 324 mg (65 mg mg PO DAILY supplement 09/12/24 09/12/24 10:00 History iron) tablet,delayed release 324 mg L.acidophil,salivari-Bifido 1 cap PO 1XD #0 caps 09/18/24 Unknown Rx bifidum-Strep thermoph 175 mg capsule albuterol sulfate 2.5 mg/3 mL 2.5 mg (3 mL) inhalation Q2H PRN 09/18/24 Unknown Rx (0.083 %) solution for nebulization PRN SOB &/OR WHEEZING #0 mL cephalexin 500 mg capsule 500 mg PO Q8 10 days #30 caps 09/18/24 Unknown Rx melatonin 3 mg tablet 3 mg PO QHS PRN PRN Insomnia #0 09/18/24 Unknown Rx tabs cephalexin 500 mg capsule 500 mg PO Q6 #40 CAPSULES 10/05/24 Unknown Rx cephalexin 500 mg capsule 500 mg PO Q6 7 days #28 CAPSULES 11/19/24 Unknown Rx Allergy/AdvReac Type Severity Reaction Status Date / Time diltiazem (From Cardizem) AdvReac unknown Verified 10/05/24 19:47 losartan (From Hyzaar) AdvReac unknown Verified 10/05/24 19:47 metoprolol (From Lopressor) AdvReac unknown Verified 10/05/24 19:47 valsartan (From Diovan) AdvReac unknown Verified 10/05/24 19:47 Family History Mother Heart disease Cancer breast Sister Heart disease Surgical History History of lumbar laminectomy for spinal cord decompression History of shoulder surgery History of elbow surgery History of hip replacement Social History household members: none Smoking Status: Former smoker quit date: 11/22/92 pack-years: 46 alcohol intake: former year quit: 1991 substance use type: does not use ROS <AMANDO Saavedra - Last Filed: 11/19/24 18:53> ROS ED ROS Narrative Constitutional: Negative for fever, chills. CVS: Negative for chest pain. Respiratory: Negative for shortness of breath. GI: Negative for abdominal pain, vomiting, diarrhea. Neuro: Negative for headache. EXAM <AMANDO Saavedra - Last Filed: 11/19/24 18:53> Physical Exam Narrative Exam Narrative: CONST: Patient sitting in no acute distress. EYES: Normal inspection. NECK: Normal inspection. RESP: No respiratory distress, CTAB. CVS: Regular rate and rhythm, no murmur, no gallop. ABD: Soft and nontender, no guarding or rebound, nondistended. : Chronic indwelling Dowling catheter has sediment in the tube and clear yellow urine in the bag. SKIN: Color normal, no rash, warm, dry, intact. EXTREMITIES: Normal appearance, no pedal edema. NEURO: Alert and answering questions appropriately. PSYCH: Normal affect. Const Vital Signs: 11/19/24 16:06 Temperature 97.8 F Temperature Source Axillary Pulse Rate 80 Respiratory Rate 20 H Blood Pressure 116/75 Blood Pressure Mean 88 Pulse Ox 97 Oxygen Delivery Method Room Air <Dr. Francisco Javier Hill DO - Last Filed: 11/19/24 21:56> Physical Exam Const Vital Signs: 11/19/24 16:06 Temperature 97.8 F Temperature Source Axillary Pulse Rate 80 Respiratory Rate 20 H Blood Pressure 116/75 Blood Pressure Mean 88 Pulse Ox 97 Oxygen Delivery Method Room Air MDM <AMANDO Saavedra - Last Filed: 11/19/24 18:53> MDM MDM Narrative Medical decision making narrative: Differential: Indwelling Dowling catheter colonization, UTI, ruled out urosepsis Patient was evaluated for concerns for UTI. He has a chronic indwelling Dowling catheter. He appears well and nontoxic and is afebrile and hemodynamically stable. His exam overall is benign. Abdomen soft and nontender. His Dowling did have sediment and he states he is not sure the last time it was replaced. Supposed to be every 4 weeks so I had the nursing staff replace that here. CBC and BMP are unremarkable. UA does look consistent with an infection and was sent for culture. He was prescribed Keflex. Patient also requested a refill of gabapentin which he takes for neuropathy. According to [facility] he last filled in August. He is not really clear why it is not being filled, stating that he gets his medications through the mail. I told him I would not refill this medication since it is controlled and he needs to follow-up with his primary care doctor. He was discharged in stable condition. Lab Data Attestation: I reviewed the patient's lab results. Labs: Laboratory Results - last 24 hr 11/19/24 11/19/24 16:28 16:51 WBC 7.3 RBC 4.79 Hgb 14.4 Hct 42.3 MCV 88.3 MCH 30.1 MCHC 34.0 RDW Std Deviation 50.7 H RDW Coeff of Matthew 15.6 H Plt Count 307 MPV 9.1 Immature Gran % (Auto) 0.300 Neut % (Auto) 62.1 Lymph % (Auto) 23.2 [place] % (Auto) 9.6 Eos % (Auto) 3.6 Baso % (Auto) 1.2 H Absolute Neuts (auto) 4.5 Absolute Lymphs (auto) 1.69 Nucleated RBC % 0 Sodium 134 L Potassium 4.3 Chloride 106 Carbon Dioxide 24.0 Anion Gap 4 L BUN 18 Creatinine 1.12 Estim Creat Clear Calc 60.70 Est GFR (MDRD) Af Amer 82 Est GFR (MDRD) Non-Af 68 BUN/Creatinine Ratio 16.1 Glucose 100 Calcium 9.2 Total Bilirubin 0.40 AST 5 L ALT 12 L Alkaline Phosphatase 70 Total Protein 7.2 Albumin 3.2 Globulin 4.0 Albumin/Globulin Ratio 0.8 L Urine Color Red Urine Clarity Turbid Urine pH 8.0 Ur Specific [place] 1.010 Urine Protein 100 H Urine Glucose (UA) Normal Urine Ketones 5 H Urine Occult Blood 250 H Urine Nitrite Negative Urine Bilirubin Negative Urine Urobilinogen Normal Ur Leukocyte Esterase 500 H Urine RBC > 100 SEEN Urine WBC >100 SEEN Ur Squamous Epith Cells 0 SEEN Ur Transition Epith Cell 0-5 SEEN Urine Bacteria 2+ Urine Mucus 0 SEEN <Dr. Francisco Javier Hill, DO - Last Filed: 11/19/24 21:56> [facility] MDM Narrative Medical decision making narrative: Differential: Indwelling Dowling catheter colonization, UTI, ruled out urosepsis Patient was evaluated for concerns for UTI. He has a chronic indwelling Dowling catheter. He appears well and nontoxic and is afebrile and hemodynamically stable. His exam overall is benign. Abdomen soft and nontender. His Dowling did have sediment and he states he is not sure the last time it was replaced. Supposed to be every 4 weeks so I had the nursing staff replace that here. CBC and BMP are unremarkable. UA does look consistent with an infection and was sent for culture. He was prescribed Keflex. Patient also requested a refill of gabapentin which he takes for neuropathy. According to [facility] he last filled in August. He is not really clear why it is not being filled, stating that he gets his medications through the mail. I told him I would not refill this medication since it is controlled and he needs to follow-up with his primary care doctor. He was discharged in stable condition. ED attending note: I evaluated the patient in conjunction with the INOCENCIO. I agree with his/her statements and above findings. I have personally performed a face to face assessment of the patient and have reviewed the INOCENCIO Note. I performed a substantive portion of the visit including all aspects of the following. I personally saw the patient performed chart review, physical exam, reviewed labs, imaging (if obtained), and formulated a treatment and management plan. This note was generated with [employer] dictation software. It may contain incorrect words, spelling, and punctuation that were not noted in review of the chart prior to signing. Lab Data Labs: Laboratory Results - last 24 hr 11/19/24 11/19/24 16:28 16:51 WBC 7.3 RBC 4.79 Hgb 14.4 Hct 42.3 MCV 88.3 MCH 30.1 MCHC 34.0 RDW Std Deviation 50.7 H RDW Coeff of Matthew 15.6 H Plt Count 307 MPV 9.1 Immature Gran % (Auto) 0.300 Neut % (Auto) 62.1 Lymph % (Auto) 23.2 [place] % (Auto) 9.6 Eos % (Auto) 3.6 Baso % (Auto) 1.2 H Absolute Neuts (auto) 4.5 Absolute Lymphs (auto) 1.69 Nucleated RBC % 0 Sodium 134 L Potassium 4.3 Chloride 106 Carbon Dioxide 24.0 Anion Gap 4 L BUN 18 Creatinine 1.12 Estim Creat Clear Calc 60.70 Est GFR (MDRD) Af Amer 82 Est GFR (MDRD) Non-Af 68 BUN/Creatinine Ratio 16.1 Glucose 100 Calcium 9.2 Total Bilirubin 0.40 AST 5 L ALT 12 L Alkaline Phosphatase 70 Total Protein 7.2 Albumin 3.2 Globulin 4.0 Albumin/Globulin Ratio 0.8 L Urine Color Red Urine Clarity Turbid Urine pH 8.0 Ur Specific [place] 1.010 Urine Protein 100 H Urine Glucose (UA) Normal Urine Ketones 5 H Urine Occult Blood 250 H Urine Nitrite Negative Urine Bilirubin Negative Urine Urobilinogen Normal Ur Leukocyte Esterase 500 H Urine RBC > 100 SEEN Urine WBC >100 SEEN Ur Squamous Epith Cells 0 SEEN Ur Transition Epith Cell 0-5 SEEN Urine Bacteria 2+ Urine Mucus 0 SEEN Discharge Plan Triage Chief Complaint: General Illness ED Midlevel Provider: Yudy Gomez ED Provider: Francisco Javier Hill Dx/Rx/DC Orders Clinical Impression: Complicated urinary tract infection, Chronic indwelling Dowling catheter Instructions: ED Dowling Catheter, Care Prescriptions: New cephalexin 500 mg capsule 500 mg PO Q6 7 Days Qty: 28 0RF No Action gabapentin 300 mg capsule 600 mg PO TID tamsulosin 0.4 mg capsule 0.4 mg PO QHS trazodone 50 mg tablet 50 mg PO QHS Patient Comments: pt req an inccrease in dosage because 50mg isnt working for me bupropion HCl 300 mg tablet extended release 24 hr 300 mg PO DAILY melatonin 5 mg tablet 5 mg PO QHS acetaminophen 500 mg Tablet 1,000 mg PO Q6H PRN PRN (Reason: Pain Score 1-5) Qty: 0 0RF potassium chloride 20 mEq Tablet,Er Particles/Crystals 20 meq PO DAILYCM 30 Days Qty: 30 0RF ferrous sulfate 324 mg (65 mg iron) tablet,delayed release (DR/EC) PO DAILY albuterol sulfate 2.5 mg /3 mL (0.083 %) Solution For Nebulization 2.5 mg inhalation Q2H PRN PRN (Reason: SOB &/OR WHEEZING) Qty: 0 0RF melatonin 3 mg Tablet 3 mg PO QHS PRN PRN (Reason: Insomnia) Qty: 0 0RF cephalexin 500 mg Capsule 500 mg PO Q8 10 Days Qty: 30 0RF L.acidoph,saliva-B.bif-S.therm 175 mg Capsule 1 cap PO 1XD Qty: 0 0RF cephalexin 500 mg capsule 500 mg PO Q6 Qty: 40 0RF Primary Care Provider: Marbella Zaidi Referrals: Marbella Zaidi, PA [Primary Care Provider] - Activity Restrictions/Additional Instructions: Your Dowling catheter was replaced. I prescribed antibiotics for UTI. Please follow-up with your primary care doctor for refills of your chronic medication. Print Language: [place]an Disposition Disposition: Home, Self Care Discharge Date/Time: 11/19/24 18:09
[2024-11-19 16:36] LABS: Absolute Lymphocyte Count 1.69 X10^3/uL (0.83-4.51); Absolute Neutrophil Count 4.5 X10^3/uL (2.0-7.7); Basophil# 0.09 X10^3/uL; Basophil% 1.2 % (0-1); Eosinophil# 0.26 X10^3/uL; Eosinophils% 3.6 % (0-5); Hematocrit 42.3 % (40-54); Hemoglobin 14.4 g/dL (13.0-16.5); Lymphocyte # 1.69 X10^3/ul (0.83-4.51); Lymphocyte % 23.2 % (19-41); Mean Corpuscular Hgb 30.1 pg (27.0-32.0); Mean Corpuscular Volume 88.3 fL (80-94); Mean Platelet Vol. 9.1 fl (6.2-12.0); Monocyte% 9.6 % (0-10); NRBC Flagged by Analyzer 0 % (0-5); Neutrophil # 4.51 X10^3/uL (2.7-7.7); Neutrophil % 62.1 % (47-70); Platelet Count 307 K/mm3 (150-450); RBC Distribution Width CV 15.6 % (11.6-14.6); RBC Distribution Width SD 50.7 fl (35.1-43.9); Red Blood Count 4.79 M/mm3 (4.6-6.2); White Blood Count 7.3 K/mm3 (4.4-11.0)
[2024-11-19 16:53] LABS: ALB/GLOB Ratio 0.8 RATIO (0.9-2.4); AST(SGOT) 5 U/L (15-37); Alanine Aminotransfer ALT/SGPT 12 U/L (16-61); Albumin, Serum 3.2 g/dL (3.2-5.0); Alkaline Phosphatase 70 U/L (45-117); Anion Gap 4 (5-15); BUN 18 mg/dL (7-18); BUN/Creat Ratio 16.1 RATIO (10-20); Calcium,Total 9.2 mg/dL (8.5-10.1); Chloride 106 mmol/L (98-107); Creatinine, Serum 1.12 mg/dL (0.70-1.30); EST Glomerular Filtration Rate 68 mL/min (>60); Est Glom Filt Rate - Afr Amer 82 mL/min (>60); Glucose 100 mg/dL (74-106); Potassium 4.3 mmol/L (3.5-5.1); Protein, Total 7.2 g/dL (6.4-8.2); Sodium Level 134 mmol/L (136-145)
[2024-11-19 17:01] LABS: Mucous, Urine 0 SEEN /hpf (<or=2+); Squamous Epithelial Cells - UA 0 SEEN /hpf (0-5)
[2024-11-19 17:16] LABS: Color, Urine Red (Yellow); Glucose, Dipstick Normal (Normal); Ketone-Dipstick 5 mg/dl (Negative); Leukocyte Esterase-Dipstick 500 /ul (Negative); Nitrite-Dipstick Negative (Negative); Occult Blood-Urine 250 /ul (Negative); Protein-Dipstick 100 mg/dl (Negative); Urine Bilirubin Dipstick Negative (Negative); Urine Clarity Turbid (Clear); Urine Urobilinogen Normal (Normal)
[2024-11-19 17:24] LABS: Red Blood Cells-Urine > 100 SEEN /hpf (0-5); White Blood Cells >100 SEEN /hpf (0-5)
[2024-11-19 17:26] LABS: Bacteria 2+ /hpf (None Seen); Transitional Epithelial - Ur 0-5 SEEN /hpf (0-5)
[2024-11-19] MEDS: Cephalexin 250 MG Capsule 500 MG PO (17:40)
== END 2024-11-19 18:09 | disposition home or self-care (01) ==
PROVIDERS: Physician Assistant; Emergency Provider Emergency Medicine; PCP Physician Assistant; Visit Provider Emergency Medicine
DX: N39.0 Urinary tract infection, site not specified (principal); Z87.891 Personal history of nicotine dependence; I10 Essential (primary) hypertension; F32.A Depression, unspecified; Z79.899 Other long term (current) drug therapy; Z96.649 Presence of unspecified artificial hip joint; Z96.0 Presence of urogenital implants
CPT/HCPCS: 51702; 80053; 81001; 85025; 87077; 87086; 87088; 87186; 99284; A4216

== ENCOUNTER 2024-11-30 11:36 | Inpatient (IN) | payer MEDICARE, SELFPAY ==
[2024-11-30 11:42] VITALS: BP 119/72; PULSE 72; RESP 16; TEMP 36.5; O2SAT 97; BMI 27.4
--- NOTE | 2024-11-30 11:51 | EDS_ITS ---
HPI <AMANDO Saavedra - Last Filed: 11/30/24 15:01> History of Present Illness Chief Complaint: Numb/Ting Narrative Narrative: 74-year-old male with past medical history of HTN, neurogenic bladder and chronic indwelling Dowling catheter presents with weakness and worsening lower extremity neuropathy. He reports years of numbness in both feet causing difficulty ambulating. He uses a wheelchair to get around his apartment. Over the last week the neuropathy seems worse extending up toward the knees. Yesterday he fell while trying to transfer from the bed to the wheelchair and laid there for 4 hours before calling the paramedics for assistance. He denies head injury or LOC. He states they put him back in bed but this morning he was too weak to get up. He states he had a remote lumbar laminectomy at [place] and had neuropathic symptoms even prior to that. He denies being diabetic. [facility] <AMANDO Saavedra - Last Filed: 11/30/24 15:01> [facility] Medical History (Updated 11/30/24 @ 14:46 by Micheal Weathers MD) Chest pain Vision loss of right eye Anxiety Depression GERD (gastroesophageal reflux disease) Hypertension Right femoral fracture History of fractured rib (08/12/20) Anxiety Essential (primary) hypertension Hepatitis A Osteoarthritis Home Medications ?Medication ?Instructions ?Recorded ?Last Taken ?Type gabapentin 300 mg capsule 600 mg PO TID NEUROPATHY 03/29/22 11/30/24 History tamsulosin 0.4 mg capsule 0.4 mg PO QHS PROSTATE 03/11/23 11/29/24 History acetaminophen 500 mg tablet 1,000 mg (2 x 500 mg) PO Q6H PRN 03/07/24 11/30/24 Rx PRN Pain Score 1-5 #0 tabs potassium chloride 20 mEq 20 meq PO DAILYCM 30 days #30 tabs 03/07/24 11/29/24 Rx tablet,extended release(part/cryst) ferrous sulfate 324 mg (65 mg 324 mg PO DAILY supplement 09/12/24 09/12/24 10:00 History iron) tablet,delayed release 324 mg amlodipine 10 mg tablet 10 mg PO DAILY 11/30/24 11/30/24 History Allergy/AdvReac Type Severity Reaction Status Date / Time diltiazem (From Cardizem) AdvReac unknown Verified 11/30/24 11:42 losartan (From Hyzaar) AdvReac unknown Verified 11/30/24 11:42 metoprolol (From Lopressor) AdvReac unknown Verified 11/30/24 11:42 valsartan (From Diovan) AdvReac unknown Verified 11/30/24 11:42 Family History Mother Heart disease Cancer breast Sister Heart disease Surgical History History of lumbar laminectomy for spinal cord decompression History of shoulder surgery History of elbow surgery History of hip replacement Social History household members: none Smoking Status: Former smoker quit date: 11/22/92 pack-years: 46 alcohol intake: former year quit: 1991 substance use type: does not use ROS <AMANDO Saavedra - Last Filed: 11/30/24 15:01> ROS ED ROS Narrative Constitutional: Negative for fever, chills. CVS: Negative for palpitations, chest pain, syncope. Respiratory: Negative for shortness of breath, cougha. GI: Negative for abdominal pain, nausea, vomiting, diarrhea. Neuro: Negative for headache. EXAM <AMANDO Saavedra - Last Filed: 11/30/24 15:01> Physical Exam Narrative Exam Narrative: CONST: Patient sitting in no acute distress. Clothing is stained and disheve led. EYES: Normal inspection. HEAD: Atraumatic normocephalic. ENT: Normal inspection, moist mucous membranes. NECK: Normal inspection. RESP: No respiratory distress, CTAB. CVS: Regular rate and rhythm, no murmur, no gallop. ABD: Soft and nontender, no guarding or rebound, nondistended. SKIN: Color normal, no rash, warm, dry, intact. EXTREMITIES: Normal appearance, able to move both lower extremities through full range of motion, decrease sensation to light touch bilaterally up to both knees, 2+ DP pulses. Chronic deformities of both feet almost with a Charcot like appearance. NEURO: Alert and answering questions appropriately. PSYCH: Normal affect. Const Vital Signs: 11/30/24 11:42 11/30/24 14:55 Temperature 97.7 F L 98 F Temperature Source Oral Pulse Rate 72 77 Respiratory Rate 16 16 Blood Pressure 119/72 113/93 H Blood Pressure Mean 87 99 Pulse Ox 97 99 Oxygen Delivery Method Room Air <Micheal Weathers MD - Last Filed: 11/30/24 15:35> Physical Exam Const Vital Signs: 11/30/24 11:42 11/30/24 14:55 Temperature 97.7 F L 98 F Temperature Source Oral Pulse Rate 72 77 Respiratory Rate 16 16 Blood Pressure 119/72 113/93 H Blood Pressure Mean 87 99 Pulse Ox 97 99 Oxygen Delivery Method Room Air MDM <AMANDO Saavedra - Last Filed: 11/30/24 15:01> [facility] Narrative Medical decision making narrative: 74-year-old male is too weak to stand and ambulate. It sounds like he mainly transfers in and out of his wheelchair in his apartment where he lives alone. He has chronic neuropathy. He is awake and alert with normal vital signs. He has decreased sensation to light touch in both legs but has normal motor function and strong equal distal pulses. Overall his workup is negative with benign labs and urinalysis from his chronic indwelling Dowling. He had recently completed Keflex for UTI looks like it is cleared. Patient requires admission due to inability to ambulate and for PT/OT evaluation. Case will be discussed with the hospitalist. They requested a CT of the lumbar spine since he had fallen and has worsening paresthesias. CT was obtained and shows no acute findings. He complained of back pain while here and was treated with Tylenol, Lidoderm patch, and fentanyl. External records reviewed: Most recent urine culture and several prior all show Proteus mirabilis which were sensitive to Keflex that he received most recently. Lab Data Labs: Laboratory Results - last 24 hr 11/30/24 11/30/24 12:00 12:57 WBC 6.6 RBC 4.97 Hgb 14.5 Hct 45.5 MCV 91.5 MCH 29.2 MCHC 31.9 L RDW Std Deviation 51.0 H RDW Coeff of Matthew 15.2 H Plt Count 301 MPV 9.2 Immature Gran % (Auto) 0.300 Neut % (Auto) 68.0 Lymph % (Auto) 17.5 L [place] % (Auto) 8.6 Eos % (Auto) 4.4 Baso % (Auto) 1.2 H Absolute Neuts (auto) 4.5 Absolute Lymphs (auto) 1.16 Nucleated RBC % 0 Sodium 138 Potassium 3.7 Chloride 104 Carbon Dioxide 30.0 Anion Gap 3 L BUN 15 Creatinine 1.23 Estim Creat Clear Calc 55.27 Est GFR (MDRD) Af Amer 74 Est GFR (MDRD) Non-Af 61 BUN/Creatinine Ratio 12.2 Glucose 105 Calcium 9.3 Total Creatine Kinase 59 Urine Color Yellow Urine Clarity Sl. Cloudy Urine pH 6.0 Ur Specific E[place] 1.020 Urine Protein 30 H Urine Glucose (UA) Normal Urine Ketones Negative Urine Occult Blood 50 H Urine Nitrite Negative Urine Bilirubin Negative Urine Urobilinogen Normal Ur Leukocyte Esterase 500 H Urine RBC 0-5 SEEN Urine WBC 25-50 SEEN Ur Squamous Epith Cells 0-5 SEEN Urine Bacteria 0 SEEN Urine Mucus 0 SEEN Urine Yeast 1+ Radiography Diagnostic Testing: Clinical Impression(s) from Imaging Studies Lumbar Spine CT 11/30/24 13:33 IMPRESSION: Multilevel degenerative changes, as described above. Stable examination. Electronically Signed: Joel Abraham MD at 14:41 EST , <Micheal Weathers MD - Last Filed: 11/30/24 15:35> [facility] Lab Data Attestation: I reviewed the patient's lab results. Labs: Laboratory Results - last 24 hr 11/30/24 11/30/24 12:00 12:57 WBC 6.6 RBC 4.97 Hgb 14.5 Hct 45.5 MCV 91.5 MCH 29.2 MCHC 31.9 L RDW Std Deviation 51.0 H RDW Coeff of Matthew 15.2 H Plt Count 301 MPV 9.2 Immature Gran % (Auto) 0.300 Neut % (Auto) 68.0 Lymph % (Auto) 17.5 L [place]oughton % (Auto) 8.6 Eos % (Auto) 4.4 Baso % (Auto) 1.2 H Absolute Neuts (auto) 4.5 Absolute Lymphs (auto) 1.16 Nucleated RBC % 0 Sodium 138 Potassium 3.7 Chloride 104 Carbon Dioxide 30.0 Anion Gap 3 L BUN 15 Creatinine 1.23 Estim Creat Clear Calc 55.27 Est GFR (MDRD) Af Amer 74 Est GFR (MDRD) Non-Af 61 BUN/Creatinine Ratio 12.2 Glucose 105 Calcium 9.3 Total Creatine Kinase 59 Urine Color Yellow Urine Clarity Sl. Cloudy Urine pH 6.0 Ur Specific E[place] 1.020 Urine Protein 30 H Urine Glucose (UA) Normal Urine Ketones Negative Urine Occult Blood 50 H Urine Nitrite Negative Urine Bilirubin Negative Urine Urobilinogen Normal Ur Leukocyte Esterase 500 H Urine RBC 0-5 SEEN Urine WBC 25-50 SEEN Ur Squamous Epith Cells 0-5 SEEN Urine Bacteria 0 SEEN Urine Mucus 0 SEEN Urine Yeast 1+ Radiography Diagnostic Testing: Clinical Impression(s) from Imaging Studies Lumbar Spine CT 11/30/24 13:33 IMPRESSION: Multilevel degenerative changes, as described above. Stable examination. Electronically Signed: Joel Abraham MD at 14:41 EST , Treatment and Re-Evaluation :: Dr. Weathers: I have personally performed a face to face assessment of the patient and have reviewed the INOCENCIO Note. I performed a substantive portion of the visit including all aspects of the following. My mcdaniels findings include: History is history of chronic neuropathy and chronic back pain. Lives at home alone. Fell yesterday and was on the floor for 4 hours. Was placed into bed by EMS. This morning, states unable to ambulate and neuropathy worsening in bilateral lower extremities to level of knees. Exam is afebrile. Vital signs noted. Alert, awake, pleasant. Cardiovascular examination regular rate and rhythm. Lungs clear to auscultation bilaterally. Abdomen soft and nontender. Neurological examination shows decreased sensation to level of knees bilateral lower extremities. Medical Decision Making: I have low concern for cauda equina symptoms. Check labs. Check UA. Given patient's social situation, will need PT OT eval for possible placement in rehabilitation. Patient discussed with Dr. Mai Kline who requested CT of the C-spine given patient's fall yesterday. CT obtained and radiology report reviewed. There is no evidence of acute fracture. Disposition admit in stable condition. Other additions or changes: [None] Discharge Plan Dx/Rx/DC Orders Clinical Impression: Unable to ambulate, Chronic indwelling Dowling catheter, Debility, Back pain, Neuropathic pain of both legs Disposition Disposition: Acute Care Hospital [facility]
[2024-11-30] MEDS: 0.9% Normal Saline (1000mL) 1,000 ML 999 ML IV (12:24)
[2024-11-30 12:30] LABS: Absolute Lymphocyte Count 1.16 X10^3/uL (0.83-4.51); Absolute Neutrophil Count 4.5 X10^3/uL (2.0-7.7); Basophil# 0.08 X10^3/uL; Basophil% 1.2 % (0-1); Eosinophil# 0.29 X10^3/uL; Eosinophils% 4.4 % (0-5); Hematocrit 45.5 % (40-54); Hemoglobin 14.5 g/dL (13.0-16.5); Lymphocyte # 1.16 X10^3/ul (0.83-4.51); Lymphocyte % 17.5 % (19-41); Mean Corp Hgb Conc 31.9 g/dL (32-36); Mean Corpuscular Hgb 29.2 pg (27.0-32.0); Mean Corpuscular Volume 91.5 fL (80-94); Mean Platelet Vol. 9.2 fl (6.2-12.0); Monocyte# 0.57 X10^3/uL; Monocyte% 8.6 % (0-10); NRBC Flagged by Analyzer 0 % (0-5); Neutrophil # 4.51 X10^3/uL (2.7-7.7); Platelet Count 301 K/mm3 (150-450); RBC Distribution Width CV 15.2 % (11.6-14.6); Red Blood Count 4.97 M/mm3 (4.6-6.2); White Blood Count 6.6 K/mm3 (4.4-11.0)
[2024-11-30 12:50] LABS: Anion Gap 3 (5-15); BUN 15 mg/dL (7-18); BUN/Creat Ratio 12.2 RATIO (10-20); CPK Total, Creatine Kinase 59 U/L (39-308); Calcium,Total 9.3 mg/dL (8.5-10.1); Chloride 104 mmol/L (98-107); Creatinine, Serum 1.23 mg/dL (0.70-1.30); EST Glomerular Filtration Rate 61 mL/min (>60); Est Glom Filt Rate - Afr Amer 74 mL/min (>60); Estimated Creatinine Clearance 55.27 ml/min; Glucose 105 mg/dL (74-106); Potassium 3.7 mmol/L (3.5-5.1); Sodium Level 138 mmol/L (136-145)
[2024-11-30] MEDS: Acetaminophen 325 MG Tablet 650 MG PO (12:51)
[2024-11-30] MEDS: Lidocaine 5% Patch 1 PATCH TOPICAL (12:52)
[2024-11-30 13:10] LABS: Bacteria 0 SEEN /hpf (None Seen); Color, Urine Yellow (Yellow); Glucose, Dipstick Normal (Normal); Ketone-Dipstick Negative (Negative); Leukocyte Esterase-Dipstick 500 /ul (Negative); Mucous, Urine 0 SEEN /hpf (<or=2+); Nitrite-Dipstick Negative (Negative); Occult Blood-Urine 50 /ul (Negative); Protein-Dipstick 30 mg/dl (Negative); Urine Bilirubin Dipstick Negative (Negative); Urine Clarity Sl. Cloudy (Clear); Urine Urobilinogen Normal (Normal)
[2024-11-30 13:16] LABS: White Blood Cells 25-50 SEEN /hpf (0-5)
[2024-11-30 13:17] LABS: Red Blood Cells-Urine 0-5 SEEN /hpf (0-5); Squamous Epithelial Cells - UA 0-5 SEEN /hpf (0-5); Yeast-Urine 1+ /hpf (None Seen)
--- NOTE | 2024-11-30 13:33 | CT_ITS ---
STUDY: CT LUMBAR SPINE WITHOUT CONTRAST REASON FOR EXAM: Male, 74 years old. Fall, leg weakness RADIATION DOSAGE (If Supplied By Facility): CTDIvol = ( 15.97 ) mGy, DLP = ( 436.14 ) mGycm TECHNIQUE: The patient was scanned in a multi detector CT scanner. High resolution transaxial imaging was performed. Images were obtained from L1 to S1 vertebral level. Sagittal and coronal images were reconstructed. Individualized dose optimization techniques were used for this CT. COMPARISON: Comparison is made with prior study September 13, 2024. FINDINGS: Normal lumbar lordosis. There is no substantial scoliosis. Normal vertebrae of the lumbar spine. L1-2: Moderate degree of disc space narrowing. Spondylosis. Stable minimal retrolisthesis of L1 on L2. L2-3: Mild degree of disc space narrowing. Diffuse posterior disc bulge with facet joint hypertrophy causing bilateral neural foraminal stenosis. Central canal stenosis as well. L3-4: Once again, there is a posterior disc bulge. Mild degree of facet joint osteoarthritis. Bilateral neural foraminal stenosis. This is unchanged and is marked. L4-5: Marked degree of disc space narrowing with a spondylosis and disc degeneration. Moderate degree of central canal stenosis and bilateral neural foraminal stenosis. L5-S1: Retrolisthesis of L5 on S1. Mild disc space narrowing. Bilateral neural foraminal stenosis. Calcification of the aorta. CT/Spine Lumbar without Contrast IMPRESSION: Multilevel degenerative changes, as described above. Stable examination. Electronically Signed: Joel Abraham MD at 14:41 EST ,
--- NOTE | 2024-11-30 13:36 | HP.PCM.HOS_ITS ---
HPI - General General Date of Admission: 11/30/24 Date of Service: 11/30/24 Chief Complaint: Fall, acute on chronic intractable lumbar back pain. HPI Narrative The patient is a 74 y/o M w/ PMHx: Anxiety and Depression, HTN, HLD, Hx Hepatitis A, GERD, BPH with obstructive pathology w/ neurogenic bladder w/ chronic indwelling hancock catheter, Chronic anemia/Fe deficiency anemia, Former tobacco use who presents to the [facility] ED on 11/30/2024 with history of progressively worsening debility, weakness, worsening lower extremity neuropathy with longstanding history of paresthesias to both feet with difficulty walking requiring him and use a wheelchair to even get around his apartment however he is noted that this has been worsening and has been following with attempted transfers occurring the day prior even unfortunately causing delay there for at least 4 hours prior to being able to call paramedics for assistance with no head trauma prompting eventual ED evaluation given inability to safely care for self. He does report recent UTI that was sucessfully treated with a course of keflex. He reports significant back pain rating it 8 out of 10 in severity in addition to the increasing lower extremity neuropathy specifically reporting pain as sharp and aching worse with turning and repositioning. Also discussed that further medications with patient and he does report that he previously been on gabapentin but had been out of this medication which certainly could be adding to his worsened paresthesia complaints. Patient denied any bowel incontinence or saddle paresthesias. He does have a chronic indwelling Hancock catheter. Workup in the ED included T97.7, heart rate 72, BP 119/72, respiratory rate 16, 97% on room air, CBC with WBC 6.6, hemoglobin 14.5, platelet 301 with no marked shift, BMP unremarkable, total creatinine kinase 59, urinalysis with cloudy urine, specific every 1.020, protein 30, occult blood 50, negative nitrite, leukocyte Estrace 500, urine WBCs 25-50 with no urine bacteria, 1+ use noted, urine culture pending per ED. In the ED patient ministered 1 L normal saline, Tylenol 650 mg p.o. x 1, lidocaine topical patch x 1. Discussed with ED physician and given recent worsened BL LE weakness, paresthesias following recent traumatic fall although had been unaware at that time that he had been off his gabapentin, requested consideration of imaging to assure no acute intervention needs which will be obtained which was eventually obtained and CT lumbar spine without contrast eventually reported with multilevel degenerative changes and stable from previous imaging. [facility] Medical History Chest pain Vision loss of right eye Anxiety Depression GERD (gastroesophageal reflux disease) Hypertension Right femoral fracture History of fractured rib (08/12/20) Anxiety Essential (primary) hypertension Hepatitis A Osteoarthritis Home Medications ?Medication ?Instructions ?Recorded ?Last Taken ?Type gabapentin 300 mg capsule 600 mg PO TID NEUROPATHY 03/29/22 11/30/24 History tamsulosin 0.4 mg capsule 0.4 mg PO QHS PROSTATE 03/11/23 11/29/24 History acetaminophen 500 mg tablet 1,000 mg (2 x 500 mg) PO Q6H PRN 03/07/24 11/30/24 Rx PRN Pain Score 1-5 #0 tabs potassium chloride 20 mEq 20 meq PO DAILYCM 30 days #30 tabs 03/07/24 11/29/24 Rx tablet,extended release(part/cryst) ferrous sulfate 324 mg (65 mg 324 mg PO DAILY supplement 09/12/24 09/12/24 10:00 History iron) tablet,delayed release 324 mg amlodipine 10 mg tablet 10 mg PO DAILY 11/30/24 11/30/24 History Allergy/AdvReac Type Severity Reaction Status Date / Time diltiazem (From Cardizem) AdvReac unknown Verified 11/30/24 11:42 losartan (From Hyzaar) AdvReac unknown Verified 11/30/24 11:42 metoprolol (From Lopressor) AdvReac unknown Verified 11/30/24 11:42 valsartan (From Diovan) AdvReac unknown Verified 11/30/24 11:42 Family History Mother Heart disease Cancer breast Sister Heart disease Father , in a train accident. No problems noted. Surgical History History of lumbar laminectomy for spinal cord decompression History of shoulder surgery History of elbow surgery History of hip replacement Social History household members: none Smoking Status: Former smoker quit date: 11/22/92 pack-years: 46 alcohol intake: former year quit: 1991 substance use type: does not use ROS ROS Narrative Admission Review of Systems: CONSTITUTIONAL: No weight loss, fever, chills, + weakness or fatigue. HEENT: Eyes: No visual loss, blurred vision, double vision or yellow sclerae. Ears, Nose, Throat: No hearing loss, sneezing, congestion, runny nose or sore throat. SKIN: No rash or itching, lesions, wounds except + occasional stage ecchymoses especially with recent fall. CARDIOVASCULAR: No chest pain, chest pressure or chest discomfort, palpitations, edema, orthopnea, syncopal events. RESPIRATORY: No shortness of breath, cough or sputum, wheezing, hemoptysis. GASTROINTESTINAL: No anorexia, nausea, vomiting or diarrhea, abdominal pain, melena, BRBPR. GENITOURINARY: + BPH with obstructive pathology with neurogenic bladder with chronic indwelling Hancock catheter. NEUROLOGICAL: + Significant debility, difficulty ambulating, chronic paresthesias although worsened recently as he has been off his gabapentin regimen, chronic neurogenic bladder with indwelling Hancock catheter. No headache, dizziness, syncope, paralysis, ataxia, change in bowel or bladder control, seizure. MUSCULOSKELETAL: + muscle, back pain, joint pain or stiffness. HEMATOLOGIC: + History iron deficiency anemia. No marked easy history of bleeding or bruising. LYMPHATICS: No enlarged nodes. No history of splenectomy. PSYCHIATRIC: + History of anxiety and depression. ENDOCRINOLOGIC: No reports of sweating, cold or heat intolerance. No polyuria or polydipsia. ALLERGIES: No history of asthma, hives, eczema or rhinitis. Vital Signs Vital Signs Vital Signs: 11/30/24 11:42 Temperature 97.7 F L Temperature Source Oral Pulse Rate 72 Respiratory Rate 16 Blood Pressure 119/72 Blood Pressure Mean 87 Pulse Ox 97 Oxygen Delivery Method Room Air Weight Weight: 197 lb 1.492 oz Body Mass Index (BMI) 27.4 Physical Exam Narrative Physical Examination: General: Awake, alert, oriented x 3 and cooperative, laying in the ED bed, uncomfortable, notes ongoing severe lumbar back discomfort, intermittently moaning, rating it 10 out of 10 in severity Skin: Normal color, normal turgor, no icterus, no cyanosis except occasional staged ecchymoses especially with recent fall. HEENT: AT/NC, EOMI, PERRLA, moderately dry MM, no carotid bruits or JVD noted. Lungs: Mildly diminished, greater bases, appropriate effort, no rales, ronchi or wheezing. Heart: Regular rate and rhythm; no gallop, rub audible. Abdomen: Soft, NTTP, ND, distant normal BS, no appreciated HSM, chronic indwelling Hancock catheter in place. Extremities: No cyanosis, no clubbing, no marked distal peripheral edema. Neurological: Patient awake, alert, oriented as noted, cognitive function intact; pupils equally reactive to light and accommodation, cranial nerves gross normal, moving all 4 extremities but very limited secondary to pain elicited in the lumbar spine, discomfort with palpation of the paraspinous muscles, no step- off or discomfort with palpation of the spine itself, difficulty with even performing any limited version of straight leg raise, chronic paresthesias to the distal bilateral lower extremities, strength severely globally decreased. Psychiatric: Affect appears severely uncomfortable, no acute evidence of depressive or anxiety feelings but does have underlying history. Results Lab / Micro Data 11/30/24 12:00 11/30/24 12:00 Labs: Laboratory Results - last 24 hr 11/30/24 12:00: WBC 6.6, RBC 4.97, Hgb 14.5, Hct 45.5, MCV 91.5, MCH 29.2, MCHC 31.9 L, RDW Std Deviation 51.0 H, RDW Coeff of Matthew 15.2 H, Plt Count 301, MPV 9.2, Immature Gran % (Auto) 0.300, Neut % (Auto) 68.0, Lymph % (Auto) 17.5 L, [place]rill % (Auto) 8.6, Eos % (Auto) 4.4, Baso % (Auto) 1.2 H, Absolute Neuts (auto) 4.5, Absolute Lymphs (auto) 1.16, Nucleated RBC % 0, Sodium 138, Potassium 3.7, Chloride 104, Carbon Dioxide 30.0, Anion Gap 3 L, BUN 15, Creatinine 1.23, Estim Creat Clear Calc 55.27, Est GFR (MDRD) Af Amer 74, Est GFR (MDRD) Non-Af 61, BUN/Creatinine Ratio 12.2, Glucose 105, Calcium 9.3, Total Creatine Kinase 59 11/30/24 12:57: Urine Color Yellow, Urine Clarity Sl. Cloudy, Urine pH 6.0, Ur Specific [place] 1.020, Urine Protein 30 H, Urine Glucose (UA) Normal, Urine Ketones Negative, Urine Occult Blood 50 H, Urine Nitrite Negative, Urine Bilirubin Negative, Urine Urobilinogen Normal, Ur Leukocyte Esterase 500 H, Urine RBC 0-5 SEEN, Urine WBC 25-50 SEEN, Ur Squamous Epith Cells 0-5 SEEN, Urine Bacteria 0 SEEN, Urine Mucus 0 SEEN, Urine Yeast 1+ Assessment & Plan Assessment/Plan (1) Intractable back pain: PLAN: Plan The patient is a 74 y/o M w/ PMHx: Anxiety and Depression, HTN, HLD, Hx Hepatitis A, GERD, BPH with obstructive pathology w/ neurogenic bladder w/ chronic indwelling hancock catheter, Chronic anemia/Fe deficiency anemia, Former tobacco use who presents to the [facility] ED on 11/30/2024 with history of progressively worsening debility, weakness, worsening lower extremity neuropathy with longstanding history of paresthesias to both feet with difficulty walking requiring him and use a wheelchair to even get around his apartment however he is noted that this has been worsening and has been following with attempted transfers occurring the day prior even unfortunately causing delay there for at least 4 hours prior to being able to call paramedics for assistance with no head trauma prompting eventual ED evaluation given inability to safely care for self. #1. Acute Intractable Lumbar Back Pain on Chronic complicated by underlying paresthesias chronically worsened secondary to being off his gabapentin regimen per patient discussions: CT lumbar spine with no acute findings in the ED. Will admit to [facility], maintain on fall precautions, frequent positioning, initiate IV toradol, continue lidocaine patches, tizanidine, medrol dose pack, increase patient to 3 times daily gabapentin regimen, po/IV narcotic pain regimen, anti- emetics, bowel regimen. Will consult PT and OT for evaluation as well as Case management for discharge planning. CRP, ESR requested to be cautious. If clinically not improving may need to consider further imaging with MRI. #2. Recent acute on chronic constipation: Patient does report recent increased constipation and given recent pain has been certainly debilitated and moving less, will initiate bowel regimen with MiraLAX initially and certainly may have additional as needed agents, increase if necessary, will place hold parameters for loose stools. #3. BPH with obstructive pathology with neurogenic bladder with chronic indwelling Hancock catheter: Will maintain patient on Flomax regimen, will request nursing staff to investigate last Hancock catheter change and if appropriate will change outpatient catheter, continue to monitor I's and O's. #4. Chronic iron deficiency anemia: Noted in chart history: Admission hemoglobin 14.5, MCV 91.5, baseline recently 13-14 but more remotely had been down 10-11 range, will continue iron supplementation, continue to trend CBC. #5. Hypertension: Continue home regimen including amlodipine, PRN hydralazine. #6. Former tobacco use: Encourage continued tobacco cessation. #7. GERD: Per current list is not on any chronic regimen, will have as needed Mylanta regimen. #8. Anxiety and depression: Noted in history, not on any regimen, encourage continued outpatient follow-up and evaluation with PCP as previously arranged. #9. DVT prophylaxis: Lovenox. #10. CODE status: Patient does not have healthcare Pap commercial litigation attorney or living will in place but notes his sister Eleni would be his medical decision-maker if necessary. Discussed CODE status at length including difference between FULL code, DNR-CCA and DNR-CC status. Following discussions about the differences in these status, requested Full Code status. Advanced Care Planning Face to Face Time: 16 minutes. Charges/Coding Visit Charges Inpatient E&M: 48805 Init Hosp L2 Procedures Hospitalists Procedures: 58201 Advncd Care Plan 30 Min
[2024-11-30] MEDS: Ondansetron 4 MG/2 ML Vial IV (14:30)
[2024-11-30] MEDS: fentaNYL 100 MCG/2 ML Ampul 50 MCG IV (14:31)
[2024-11-30 14:55] VITALS: BP 113/93; PULSE 77; RESP 16; TEMP 36.6; O2SAT 99
[2024-11-30 15:36] VITALS: BP 121/79; PULSE 76; RESP 16; O2SAT 98
[2024-11-30 15:39] LABS: CRP 9.94 mg/L (0.0-3.0); Magnesium 2.2 mg/dL (1.6-2.6); Phosphorus 2.7 mg/dL (2.5-4.9)
[2024-11-30 15:50] LABS: Erythrocyte Sedimentation Rate 22 mm/hr (0-20)
[2024-11-30 19:00] VITALS: BP 112/73; PULSE 78; RESP 18; O2SAT 98
[2024-11-30 19:55] VITALS: BMI 26.4
[2024-11-30 20:10] VITALS: BP 138/89; PULSE 70; RESP 16; TEMP 36.8; O2SAT 98
[2024-11-30] MEDS: Menthol/Lanolin/Calamine/Znox 113 GM Tube 1 APPLIC TOPICAL (20:43)
[2024-11-30] MEDS: Tamsulosin HCl 0.4 MG Capsule PO (20:43)
[2024-11-30] MEDS: Ketorolac 15 MG/ML Vial IV (20:43)
[2024-11-30] MEDS: Polyethylene Glycol 3350 17 GM PACKET PO (20:43)
[2024-11-30] MEDS: Gabapentin 300 MG Capsule 900 MG PO (20:44)
[2024-11-30] MEDS: tiZANidine HCl 2 MG Tablet 4 MG PO (20:44)
[2024-11-30] MEDS: MethylPREDNISolone DosePak 4 MG BOX PO (20:45)
[2024-11-30] MEDS: 0.9% Normal Saline (1000mL) 1,000 ML 100 ML IV (20:46)
[2024-11-30] MEDS: traZODone 100 MG Tablet PO (23:26)
[2024-12-01 04:40] VITALS: BP 117/77; PULSE 75; RESP 16; TEMP 36.5; O2SAT 97
[2024-12-01] MEDS: Ketorolac 15 MG/ML Vial IV ×3 (04:47→22:04)
[2024-12-01] MEDS: Gabapentin 300 MG Capsule 900 MG PO ×3 (04:48→22:01)
[2024-12-01 06:23] LABS: Absolute Lymphocyte Count 0.53 X10^3/uL (0.83-4.51); Absolute Neutrophil Count 4.7 X10^3/uL (2.0-7.7); Basophil# 0.03 X10^3/uL; Basophil% 0.6 % (0-1); Eosinophil# 0.03 X10^3/uL; Eosinophils% 0.6 % (0-5); Hematocrit 41.4 % (40-54); Hemoglobin 13.4 g/dL (13.0-16.5); Lymphocyte # 0.53 X10^3/ul (0.83-4.51); Lymphocyte % 9.8 % (19-41); Mean Corp Hgb Conc 32.4 g/dL (32-36); Mean Corpuscular Hgb 29.2 pg (27.0-32.0); Mean Corpuscular Volume 90.2 fL (80-94); Mean Platelet Vol. 9.4 fl (6.2-12.0); Monocyte# 0.15 X10^3/uL; Monocyte% 2.8 % (0-10); NRBC Flagged by Analyzer 0 % (0-5); Neutrophil # 4.67 X10^3/uL (2.7-7.7); POSITIVE DIFFERENTIAL YES; Platelet Count 258 K/mm3 (150-450); RBC Distribution Width SD 50.1 fl (35.1-43.9); Red Blood Count 4.59 M/mm3 (4.6-6.2); White Blood Count 5.4 K/mm3 (4.4-11.0)
[2024-12-01 06:52] LABS: ALB/GLOB Ratio 0.8 RATIO (0.9-2.4); AST(SGOT) 8 U/L (15-37); Alanine Aminotransfer ALT/SGPT 12 U/L (16-61); Albumin, Serum 2.9 g/dL (3.2-5.0); Alkaline Phosphatase 65 U/L (45-117); Anion Gap 4 (5-15); BUN 14 mg/dL (7-18); BUN/Creat Ratio 14.6 RATIO (10-20); Calcium,Total 8.8 mg/dL (8.5-10.1); Chloride 108 mmol/L (98-107); Creatinine, Serum 0.96 mg/dL (0.70-1.30); EST Glomerular Filtration Rate 81 mL/min (>60); Est Glom Filt Rate - Afr Amer 98 mL/min (>60); Estimated Creatinine Clearance 70.81 ml/min; Globulin 3.7 g/dL (2.2-4.2); Glucose 174 mg/dL (74-106); Potassium 4.3 mmol/L (3.5-5.1); Protein, Total 6.6 g/dL (6.4-8.2); Sodium Level 136 mmol/L (136-145)
[2024-12-01 07:48] VITALS: BP 115/80; PULSE 70; RESP 16; TEMP 36.6; O2SAT 96
[2024-12-01] MEDS: Potassium Chloride Oral Tablet 20 MEQ PO (07:57)
[2024-12-01] MEDS: MethylPREDNISolone DosePak 4 MG BOX PO ×4 (07:57→22:02)
[2024-12-01] MEDS: Enoxaparin 40 MG/0.4 ML Syringe SC (11:14)
[2024-12-01] MEDS: Menthol/Lanolin/Calamine/Znox 113 GM Tube 1 APPLIC TOPICAL ×3 (11:14→22:01)
[2024-12-01] MEDS: Ferrous Sulfate 325 MG Tablet PO (11:14)
[2024-12-01] MEDS: Lidocaine 5% Patch 2 PATCH TOPICAL (11:15)
[2024-12-01] MEDS: Polyethylene Glycol 3350 17 GM PACKET PO (11:15)
--- NOTE | 2024-12-01 11:22 | CASEMGMT ---
Social Work- SW met with pt to discuss preferences at discharge. SW introduced self and role. A list of SNF providers including quality and resource use data and consistent with the patient?s preferred geographic region, medical needs, and insurance network were provided from the [employer] Guide. Pt selected TCU as FOC. SW completed referral. SW remains available to follow. MARGARITA Franco
--- NOTE | 2024-12-01 11:38 | CASEMGMT ---
Social Work- SW received a phone call from [facility] who reports that pt was receiving PT, OT, and nursing. Tomorrow was the end of the cert period, but there were plans to extend services for five additional weeks for all services. RNCM updated. MARGARITA Franco
--- NOTE | 2024-12-01 11:51 | CASEMGMT ---
IMMANUEL HOWE Assessment: Face to Face with pt for initial transition planning/care coordination assessment. IMMANUEL HOWE introduced self and role at [facility], pt voices understanding and consents to assessment. Pt is A&O x4 and answers all questions appropriately at this time. Pt sitting up in chair in no distress with dietary just taking pt meal orders. Care providers, pharmacy, and demographics verified/updated. Admitting Dx: intractable lumbar back pain, falls Strata Score: 3 PCP:[facility] Specialists:Pt states he cannot think of the names of the specialists he sees. Preferred Pharmacy: [facility] Insurance: [employer] [facility] Prescription Benefit: yes LNOK: Ailin Villalta, dtr; Eleni Holguin, sister Living Arrangements: Pt lives alone in an apt with an elevator to enter. Pt states once in the home, no steps are needed to be navigated. Pt states he needs someone at the home for bathing and dressing for safety. Pt receives MOW and is able to microwave his meals and get cereal. Transportation: Pt uses [employer] for transportation. DME:shower chair, cane, walker, w/c HHC/SNF: Pt is active with [facility] SN, PT and OT. Pt has been to [facility] in the past. SW already spoke with pt and pt has chosen [facility] TCU for at ms. Pt states no further concerns/needs. CM to follow. Advised pt to ask CM if any further questions/concerns/needs arise, voices understanding. Pt Goal: [facility] TCU Plan: SNF pending acceptance and precert. Shmuel GAMBINO CM
--- NOTE | 2024-12-01 13:40 | CASEMGMT ---
Addendum entered by Kristine Archibald 12/01/24 16:27: SW placed green sheet on chart in the event that pt receives discharge and is able to transfer. Plan: TCU; pending precert MARGARITA Franco Original Note: Social Work- SW received notice that pt was accepted at TCU; precert started. Pt notified. Plan: TCU; pending precert MARGARITA Franco
[2024-12-01 14:12] VITALS: BP 135/97; PULSE 83; RESP 16; TEMP 36.4; O2SAT 98
--- NOTE | 2024-12-01 15:58 | CHAPLAIN ---
Type of Pastoral Visit _x__ Initial Visit ___ Follow-up Visit ___ On-call Visit ___ General Patient Visit ___ Spiritual Assessment ___ Family Conference ___ Bereavement ___ Rapid Response ___ Code Blue ___ Other (describe below) Pastoral Care Referral From _x__ Patient ___ Family ___ Nurse ___ Physician ___ Survey Project Manager ___ Weekend Receptionist ___ Other (describe below) Sacrament/Intervention _x__ Active listening ___ Anointing ___ Zoroastrianism ___ Bereavement ___ Communion ___ Ewelina exploration ___ ___ Life review _x__ Prayer ___ Reconciliation ___ Sacrament of Sick _x__ Supportive presence ___ Wedding ___ Other (describe below) Pastoral Comments patient relates his medical concerns with hope of restoring strength to his legs; pt states I love talking to pastors and believers; pt is talkative and expressive; pt otherwise states that he handles his concerns pretty well; prayer welcomed
[2024-12-01 16:23] VITALS: BMI 27.4
--- NOTE | 2024-12-01 16:24 | PN.HOSP_ITS ---
Reason for Visit Reason for Visit: Diagnoses Dorsalgia, unspecified (11/30/24) Subjective Subjective Patient was seen and examined today, he has voiced an interest in going to a shelter facility, a request was placed for TCU. Patient states that he has had a history of lumbar back surgery before and was operated on in [place], he is not sure if he has had an MRI at this hospital but I searched through his medical records and could not find a previous lumbar MRI. Patient states he was unable to get Neurontin due to a problem with his male in pharmacy. Objective Data Objective Data Vital Signs: Vital Signs Temp Pulse Resp BP Pulse Ox O2 Del Method 97.5 F L 83 16 135/97 H 98 Room Air 12/01/24 14:12 12/01/24 14:12 12/01/24 14:12 12/01/24 14:12 12/01/24 14:12 12/01/24 14:12 Oxygen Delivery Method Room Air Weight: 86.183 kg Body Mass Index (BMI) 26.4 Intake & Output: Intake and Output for Last 24 Hours 11/29/24 11/30/24 12/01/24 23:59 23:59 23:59 Intake Total 1000 / 1300 1700 / 1700 Output Total 2600 / 2600 Balance 1000 / 300 -900 / -900 Medical Nutrition Assessment Dietitian: Malnutrition Criteria Met Start: 12/01/24 12:23 Freq: Status: Active Protocol: Document 12/01/24 12:23 SLA (Rec: 12/01/24 12:23 SLA 10..25.7) Nutrition Malnutrition Evidence of Malnutrition Exists Yes Malnutrition (severe): Acute Illness/Injury Evidenced By Suboptimal Energy Intake ( Severe),Weight Loss (Severe) Clinical Problem Altered Nutrient-Related Laboratory Values Etiology related to steroid administration Signs/Symptoms as evidenced by gluc 174 Status Active Problem Acute Disease or Injury Related Malnutrition Etiology related to acute illness and inadequate energy intake Signs/Symptoms as evidenced by ~ 10% unintended wt loss and po intake meeting <75% of est nutritional needs x 1 month Status Active Problem Recommendation Dietitian Recommendations/Changes Continue liberal regular diet - consider addition of Consistent CHO if gluc remains elevated Will provide ensure plus high protein tid w/ meals per pt request to help increase nutrition intake if consumed Monitor for changes in pt nutritional status and make additional rec as indicated Lab / Micro Data 12/01/24 05:30 12/01/24 05:30 Labs: Laboratory Results - last 24 hr 12/01/24 05:30: WBC 5.4, RBC 4.59 L, Hgb 13.4, Hct 41.4, MCV 90.2, MCH 29.2, MCHC 32.4, RDW Std Deviation 50.1 H, RDW Coeff of Matthew 15.0 H, Plt Count 258, MPV 9.4, Immature Gran % (Auto) 0.200, Neut % (Auto) 86.0 H, Lymph % (Auto) 9.8 L, [place] % (Auto) 2.8, Eos % (Auto) 0.6, Baso % (Auto) 0.6, Absolute Neuts (auto) 4.7, Absolute Lymphs (auto) 0.53 L, Nucleated RBC % 0, Sodium 136, Potassium 4.3, Chloride 108 H, Carbon Dioxide 24.0, Anion Gap 4 L, BUN 14, Creatinine 0.96, Estim Creat Clear Calc 70.81, Est GFR (MDRD) Af Amer 98, Est GFR (MDRD) Non-Af 81, BUN/Creatinine Ratio 14.6, Glucose 174 H, Calcium 8.8, Total Bilirubin 0.20, AST 8 L, ALT 12 L, Alkaline Phosphatase 65, Total Protein 6.6, A lbumin 2.9 L, Globulin 3.7, Albumin/Globulin Ratio 0.8 L Micro: Microbiology 11/30/24 12:33 Urine Catheter - Dowling Urine Culture - Preliminary Gram negative gill Physical Exam Const alert, oriented x3, no apparent distress and average body habitus General Appearance: cooperative, well kempt and well developed Orientation / Consciousness: awake, oriented to person, oriented to place and oriented to time HEENT normocephalic, head/scalp atraumatic and moist oral mucous membranes Eyes PERRL, EOMs intact bilaterally and conjunctivae normal Neck supple, no JVD and thyroid normal General: trachea midline Resp normal respiratory effort, no retractions, no use of accessory muscles and clear to auscultation bilaterally Auscultation: Negative for rales, rhonchi or wheezes Cardio regular rate, regular rhythm, S1 normal heart sound, S2 normal heart sound, no murmurs, no rub and no gallops GI normal to inspection, nondistended, normoactive bowel sounds, soft to palpation, non-tender and non-distended Extremity no clubbing, cyanosis or edema Skin no rashes or lesions noted General Skin Exam: no breakdown Neuro oriented x3, CN's II-XII intact bilaterally, moves all extremities, no focal motor deficits and no sensory deficits noted Sensorium / Orientation: awake and alert Speech: speech normal Psych affect normal Assessment & Plan Assessment/Plan (1) Intractable back pain: PLAN: Plan 1. Intractable back pain with debility-patient is currently on Toradol, IV morphine, Lidoderm patch, oxycodone, methylprednisolone, and gabapentin. PT and OT are seeing the patient, again we are awaiting approval for the patient to go to a shelter facility for short-term rehab services. 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 #3 essential hypertension-patient is on amlodipine #4 neurogenic bladder-patient has a chronic indwelling Dowling catheter Total clinical time spent by myself addressing the patient's medical issues, reviewing all of his data, and collaborating with patient's care team: 35-minute Charges/Coding Visit Charges Inpatient E&M: 83994 Subs Hosp L2
[2024-12-01 21:57] VITALS: BP 135/85; PULSE 72; RESP 18; TEMP 36.7; O2SAT 98
[2024-12-01] MEDS: traZODone 100 MG Tablet PO (22:02)
[2024-12-01] MEDS: Tamsulosin HCl 0.4 MG Capsule PO (22:02)
[2024-12-01] MEDS: 0.9% Saline Lock 10 ML Syringe IV (22:04)
[2024-12-02] VITALS (7 sets, daily range): BP systolic 109–153; BP diastolic 82–101; PULSE 74–83; RESP 15–18; TEMP 36.4–36.7; O2SAT 94–99; BMI 27.4
[2024-12-02] MEDS: tiZANidine HCl 2 MG Tablet PO ×2 (00:22→21:24)
[2024-12-02] MEDS: Gabapentin 300 MG Capsule 900 MG PO ×3 (06:08→21:24)
[2024-12-02] MEDS: Acetaminophen 325 MG Tablet 650 MG PO (08:32)
[2024-12-02] MEDS: oxyCODONE 5 MG Tablet PO (08:33)
[2024-12-02] MEDS: MethylPREDNISolone DosePak 4 MG BOX PO ×4 (08:34→21:24)
[2024-12-02] MEDS: Ferrous Sulfate 325 MG Tablet PO (08:35)
[2024-12-02] MEDS: Potassium Chloride Oral Tablet 20 MEQ PO (08:36)
[2024-12-02] MEDS: Menthol/Lanolin/Calamine/Znox 113 GM Tube 1 APPLIC TOPICAL ×4 (10:20→21:24)
[2024-12-02] MEDS: Senna/Docusate Sodium 1 Tablet 2 TABLET PO (10:20)
[2024-12-02] MEDS: Lidocaine 5% Patch 2 PATCH TOPICAL (10:21)
[2024-12-02] MEDS: Enoxaparin 40 MG/0.4 ML Syringe SC (10:21)
[2024-12-02] MEDS: Polyethylene Glycol 3350 17 GM PACKET PO (10:21)
[2024-12-02] MEDS: Meclizine 12.5 MG Tablet PO (11:45)
--- NOTE | 2024-12-02 17:24 | PN.HOSP_ITS ---
Reason for Visit Reason for Visit: Diagnoses Dorsalgia, unspecified (11/30/24) Subjective Subjective Patient was seen and examined today, patient has no complaints of severe back pain at the time my examination. Patient requested Antivert for dizziness-he takes this medication at home. Patient does complain of constipation today, I will order lactulose Objective Data Objective Data Vital Signs: Vital Signs Temp Pulse Resp BP Pulse Ox O2 Del Method 97.9 F 78 15 143/98 H 99 Room Air 12/02/24 14:00 12/02/24 14:00 12/02/24 14:00 12/02/24 14:00 12/02/24 14:00 12/02/24 14:00 Oxygen Delivery Method Room Air Weight: 89 kg Body Mass Index (BMI) 27.4 Intake & Output: Intake and Output for Last 24 Hours 11/30/24 12/01/24 12/02/24 23:59 23:59 23:59 Intake Total 1000 / 1300 1700 / 1700 1025 / 1025 Output Total 2600 / 2600 3525 / 3525 Balance 1000 / 300 -900 / -900 -2500 / -2500 Medical Nutrition Assessment Dietitian: Malnutrition Criteria Met Start: 12/01/24 12:23 Freq: Status: Active Protocol: Document 12/01/24 12:23 SLA (Rec: 12/01/24 12:23 SLA ..25.7) Nutrition Malnutrition Evidence of Malnutrition Exists Yes Malnutrition (severe): Acute Illness/Injury Evidenced By Suboptimal Energy Intake ( Severe),Weight Loss (Severe) Clinical Problem Altered Nutrient-Related Laboratory Values Etiology related to steroid administration Signs/Symptoms as evidenced by gluc 174 Status Active Problem Acute Disease or Injury Related Malnutrition Etiology related to acute illness and inadequate energy intake Signs/Symptoms as evidenced by ~ 10% unintended wt loss and po intake meeting <75% of est nutritional needs x 1 month Status Active Problem Recommendation Dietitian Recommendations/Changes Continue liberal regular diet - consider addition of Consistent CHO if gluc remains elevated Will provide ensure plus high protein tid w/ meals per pt request to help increase nutrition intake if consumed Monitor for changes in pt nutritional status and make additional rec as indicated Lab / Micro Data 12/01/24 05:30 12/01/24 05:30 Micro: Microbiology 11/30/24 12:33 Urine Catheter - Dowling Urine Culture - Preliminary Proteus mirabilis Yeast Like Organism Physical Exam Narrative alert, oriented x3, no apparent distress and average body habitus General Appearance: cooperative, well kempt and well developed Orientation / Consciousness: awake, oriented to person, oriented to place and oriented to time HEENT normocephalic, head/scalp atraumatic and moist oral mucous membranes Eyes PERRL, EOMs intact bilaterally and conjunctivae normal Neck supple, no JVD and thyroid normal General: trachea midline Resp normal respiratory effort, no retractions, no use of accessory muscles and clear to auscultation bilaterally Auscultation: Negative for rales, rhonchi or wheezes Cardio regular rate, regular rhythm, S1 normal heart sound, S2 normal heart sound, no murmurs, no rub and no gallops GI normal to inspection, nondistended, normoactive bowel sounds, soft to palpation, non-tender and non-distended Extremity no clubbing, cyanosis or edema Skin no rashes or lesions noted General Skin Exam: no breakdown Neuro oriented x3, CN's II-XII intact bilaterally, moves all extremities, no focal motor deficits and no sensory deficits noted Sensorium / Orientation: awake and alert Speech: speech normal Psych affect normal Assessment & Plan Assessment/Plan (1) Intractable back pain: PLAN: Plan 1. Intractable back pain with debility-patient is currently on Toradol, IV morphine, Lidoderm patch, oxycodone, methylprednisolone, and gabapentin. PT and OT are seeing the patient, again we are awaiting approval for the patient to go to a assisted facility for short-term rehab services. 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 #3 essential hypertension-patient is on amlodipine #4 neurogenic bladder-patient has a chronic indwelling Dowling catheter #5 constipation-patient will be given lactulose Total clinical time spent by myself addressing the patient's medical issues, reviewing all of his data, and collaborating with patient's care team: 35-minute Charges/Coding Visit Charges Inpatient E&M: 64390 Subs Hosp L2
[2024-12-02] MEDS: Lactulose 20 GM/30 ML UDC 30 GM PO (20:29)
[2024-12-02] MEDS: Tamsulosin HCl 0.4 MG Capsule PO (21:25)
[2024-12-02] MEDS: traZODone 100 MG Tablet PO (21:25)
[2024-12-03] MEDS: Gabapentin 300 MG Capsule 900 MG PO ×3 (05:19→21:05)
[2024-12-03 05:21] VITALS: BP 134/88; PULSE 81; RESP 18; TEMP 36.8; O2SAT 97
[2024-12-03 05:23] VITALS: BMI 28.4
[2024-12-03 07:00] VITALS: O2SAT 96
[2024-12-03] MEDS: Ferrous Sulfate 325 MG Tablet PO (08:44)
[2024-12-03] MEDS: Potassium Chloride Oral Tablet 20 MEQ PO (08:44)
[2024-12-03] MEDS: MethylPREDNISolone DosePak 4 MG BOX PO ×3 (08:45→21:06)
--- NOTE | 2024-12-03 09:34 | PCM.PN.HOSP ---
Reason for Visit Reason for Visit: Diagnoses Dorsalgia, unspecified (11/30/24) Subjective Subjective Patient was seen and examined today, his Dowling catheter had to be changed due to blockage and he had some bladder spasms today, I have elected to place him on Detrol LA. Patient states his back pain is better. Objective Data Objective Data Vital Signs: Vital Signs Temp Pulse Resp BP Pulse Ox O2 Del Method 98.2 F 81 18 134/88 H 96 Room Air 12/03/24 05:21 12/03/24 05:21 12/03/24 05:21 12/03/24 05:21 12/03/24 07:00 12/03/24 07:00 Oxygen Delivery Method Room Air Weight: 92.1 kg Body Mass Index (BMI) 28.4 Intake & Output: Intake and Output for Last 24 Hours 12/01/24 12/02/24 12/03/24 23:59 23:59 23:59 Intake Total 1700 / 1700 1025 / 1025 Output Total 2600 / 2600 3925 / 3925 1200 / 1200 Balance -900 / -900 -2900 / -2900 -1200 / -1200 Medical Nutrition Assessment Dietitian: Malnutrition Criteria Met Start: 12/01/24 12:23 Freq: Status: Active Protocol: Document 12/01/24 12:23 SLA (Rec: 12/01/24 12:23 SLA 25.7) Nutrition Malnutrition Evidence of Malnutrition Exists Yes Malnutrition (severe): Acute Illness/Injury Evidenced By Suboptimal Energy Intake ( Severe),Weight Loss (Severe) Clinical Problem Altered Nutrient-Related Laboratory Values Etiology related to steroid administration Signs/Symptoms as evidenced by gluc 174 Status Active Problem Acute Disease or Injury Related Malnutrition Etiology related to acute illness and inadequate energy intake Signs/Symptoms as evidenced by ~ 10% unintended wt loss and po intake meeting <75% of est nutritional needs x 1 month Status Active Problem Recommendation Dietitian Recommendations/Changes Continue liberal regular diet - consider addition of Consistent CHO if gluc remains elevated Will provide ensure plus high protein tid w/ meals per pt request to help increase nutrition intake if consumed Monitor for changes in pt nutritional status and make additional rec as indicated Lab / Micro Data 12/01/24 05:30 12/01/24 05:30 Micro: Microbiology 11/30/24 12:33 Urine Catheter - Dowling Urine Culture - Preliminary Proteus mirabilis Yeast Like Organism Physical Exam Narrative alert, oriented x3, no apparent distress and average body habitus General Appearance: cooperative, well kempt and well developed Orientation / Consciousness: awake, oriented to person, oriented to place and oriented to time HEENT normocephalic, head/scalp atraumatic and moist oral mucous membranes Eyes PERRL, EOMs intact bilaterally and conjunctivae normal Neck supple, no JVD and thyroid normal General: trachea midline Resp normal respiratory effort, no retractions, no use of accessory muscles and clear to auscultation bilaterally Auscultation: Negative for rales, rhonchi or wheezes Cardio regular rate, regular rhythm, S1 normal heart sound, S2 normal heart sound, no murmurs, no rub and no gallops GI normal to inspection, nondistended, normoactive bowel sounds, soft to palpation, non-tender and non-distended Extremity no clubbing, cyanosis or edema Skin no rashes or lesions noted General Skin Exam: no breakdown Neuro oriented x3, CN's II-XII intact bilaterally, moves all extremities, no focal motor deficits and no sensory deficits noted Sensorium / Orientation: awake and alert Speech: speech normal Psych affect normal Assessment & Plan Assessment/Plan (1) Intractable back pain: PLAN: Plan 1. Intractable back pain with debility-patient is currently on Toradol, IV morphine, Lidoderm patch, oxycodone, methylprednisolone, and gabapentin. PT and OT are seeing the patient, again we are awaiting approval for the patient to go to a residential facility for short-term rehab services. 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 #3 essential hypertension-patient is on amlodipine #4 neurogenic bladder-patient has a chronic indwelling Dowling catheter, I have added Detrol LA today due to bladder spasms #5 Acute severe protein and caloric malnutrition-as evidenced by approximately 10% unintended weight loss and p.o. intake meeting less than 75% of estimated nutritional needs x 1 month-continue regular diet, Ensure Plus high-protein 3 times daily with meals will be given to the patient, nutritional services is following Total clinical time spent by myself addressing the patient's medical issues, reviewing all of his data, and collaborating with patient's care team: 35-minute Charges/Coding Visit Charges Inpatient E&M: 50041 Subs Hosp L2
[2024-12-03 09:43] VITALS: BP 126/87; PULSE 87; RESP 16; TEMP 36.5; O2SAT 100
[2024-12-03] MEDS: Enoxaparin 40 MG/0.4 ML Syringe SC (09:45)
[2024-12-03] MEDS: Lidocaine 5% Patch 2 PATCH TOPICAL (09:45)
[2024-12-03] MEDS: Polyethylene Glycol 3350 17 GM PACKET PO (09:46)
[2024-12-03] MEDS: Meclizine 12.5 MG Tablet PO (09:54)
--- NOTE | 2024-12-03 10:12 | NURSING ---
Pt c/o lower abd pain and asks if hancock needs irrigated. bladder scan done w/ 295mL in bladder. Attempted to flush hancock w/ normal saline and bulb syringe unsuccessfully. Switched to piston syringe with no success. Remove old hancock. while no catheter was in place pt had urine squirting from urethra in pulses. New 16 fr hancock placed. 385mL removed. Pt had been crying out with pain from the onset. He noted that the spasms were better after bladder emptied. Dr Craig verbally notified. He noted he would add antispasmodic for future relief
[2024-12-03] MEDS: Tolterodine Tartrate 4 MG CAP.SA PO (12:28)
[2024-12-03] MEDS: Menthol/Lanolin/Calamine/Znox 113 GM Tube 1 APPLIC TOPICAL (13:47)
[2024-12-03 13:48] VITALS: BP 150/97; PULSE 86; RESP 16; TEMP 36.7; O2SAT 96
[2024-12-03 18:20] VITALS: BP 133/93; PULSE 81; RESP 16; TEMP 36.8; O2SAT 95
[2024-12-03] MEDS: Acetaminophen 325 MG Tablet 650 MG PO (21:05)
[2024-12-03] MEDS: tiZANidine HCl 2 MG Tablet PO (21:05)
[2024-12-03] MEDS: Ondansetron 4 MG/2 ML Vial IV (21:06)
[2024-12-03] MEDS: Tamsulosin HCl 0.4 MG Capsule PO (21:06)
[2024-12-03] MEDS: traZODone 100 MG Tablet PO (21:06)
[2024-12-03 21:22] VITALS: BP 155/99; PULSE 91; RESP 18; TEMP 36.9; O2SAT 95
[2024-12-04 05:23] VITALS: BMI 28.8
[2024-12-04] MEDS: Gabapentin 300 MG Capsule 900 MG PO ×3 (05:32→21:08)
[2024-12-04 05:33] VITALS: BP 128/90; PULSE 74; RESP 16; TEMP 36.6; O2SAT 96
[2024-12-04 07:39] VITALS: BP 131/92; PULSE 69; RESP 16; TEMP 36.8; O2SAT 95
[2024-12-04] MEDS: Potassium Chloride Oral Tablet 20 MEQ PO (07:48)
[2024-12-04] MEDS: Ferrous Sulfate 325 MG Tablet PO (07:49)
[2024-12-04] MEDS: MethylPREDNISolone DosePak 4 MG BOX PO ×2 (07:49→21:08)
[2024-12-04] MEDS: Tolterodine Tartrate 4 MG CAP.SA PO (09:44)
[2024-12-04] MEDS: Lidocaine 5% Patch 2 PATCH TOPICAL (09:46)
[2024-12-04] MEDS: Polyethylene Glycol 3350 17 GM PACKET PO (09:47)
[2024-12-04] MEDS: Enoxaparin 40 MG/0.4 ML Syringe SC (09:47)
[2024-12-04] MEDS: tiZANidine HCl 2 MG Tablet PO ×2 (13:46→21:09)
[2024-12-04 13:47] VITALS: BP 126/84; PULSE 94; RESP 16; TEMP 37; O2SAT 93
[2024-12-04] MEDS: Acetaminophen 325 MG Tablet 650 MG PO ×2 (16:09→23:33)
[2024-12-04] MEDS: oxyCODONE 5 MG Tablet PO ×2 (16:10→23:33)
--- NOTE | 2024-12-04 18:55 | PN.HOSP_ITS ---
Reason for Visit Reason for Visit: Diagnoses Dorsalgia, unspecified (11/30/24) Subjective Subjective Patient was seen and examined today, we are still awaiting approval for the patient to go to a halfway facility. Objective Data Objective Data Vital Signs: Vital Signs Temp Pulse Resp BP Pulse Ox O2 Del Method 98.6 F 94 16 126/84 H 93 Room Air 12/04/24 13:47 12/04/24 13:47 12/04/24 13:47 12/04/24 13:47 12/04/24 13:47 12/04/24 13:47 Oxygen Delivery Method Room Air Weight: 93.2 kg Body Mass Index (BMI) 28.8 Intake & Output: Intake and Output for Last 24 Hours 12/02/24 12/03/24 12/04/24 23:59 23:59 23:59 Intake Total 1025 / 1025 850 / 850 Output Total 3925 / 3925 2575 / 2575 1500 / 1500 Balance -2900 / -2900 -1725 / -1725 -1500 / -1500 Medical Nutrition Assessment Dietitian: Malnutrition Criteria Met Start: 12/01/24 12:23 Freq: Status: Active Protocol: Document 12/01/24 12:23 SLA (Rec: 12/01/24 12:23 SLA ..25.7) Nutrition Malnutrition Evidence of Malnutrition Exists Yes Malnutrition (severe): Acute Illness/Injury Evidenced By Suboptimal Energy Intake ( Severe),Weight Loss (Severe) Clinical Problem Altered Nutrient-Related Laboratory Values Etiology related to steroid administration Signs/Symptoms as evidenced by gluc 174 Status Active Problem Acute Disease or Injury Related Malnutrition Etiology related to acute illness and inadequate energy intake Signs/Symptoms as evidenced by ~ 10% unintended wt loss and po intake meeting <75% of est nutritional needs x 1 month Status Active Problem Recommendation Dietitian Recommendations/Changes Continue liberal regular diet - consider addition of Consistent CHO if gluc remains elevated Will provide ensure plus high protein tid w/ meals per pt request to help increase nutrition intake if consumed Monitor for changes in pt nutritional status and make additional rec as indicated Lab / Micro Data 12/01/24 05:30 12/01/24 05:30 Micro: Microbiology 11/30/24 12:33 Urine Catheter - Dowling Urine Culture - Preliminary Proteus mirabilis Yeast Like Organism Physical Exam Narrative alert, oriented x3, no apparent distress and average body habitus General Appearance: cooperative, well kempt and well developed Orientation / Consciousness: awake, oriented to person, oriented to place and oriented to time HEENT normocephalic, head/scalp atraumatic and moist oral mucous membranes Eyes PERRL, EOMs intact bilaterally and conjunctivae normal Neck supple, no JVD and thyroid normal General: trachea midline Resp normal respiratory effort, no retractions, no use of accessory muscles and clear to auscultation bilaterally Auscultation: Negative for rales, rhonchi or wheezes Cardio regular rate, regular rhythm, S1 normal heart sound, S2 normal heart sound, no murmurs, no rub and no gallops GI normal to inspection, nondistended, normoactive bowel sounds, soft to palpation, non-tender and non-distended Extremity no clubbing, cyanosis or edema Skin no rashes or lesions noted General Skin Exam: no breakdown Neuro oriented x3, CN's II-XII intact bilaterally, moves all extremities, no focal motor deficits and no sensory deficits noted Sensorium / Orientation: awake and alert Speech: speech normal Psych affect normal Assessment & Plan Assessment/Plan (1) Intractable back pain: PLAN: Plan 1. Intractable back pain with debility-patient is currently on Toradol, IV morphine, Lidoderm patch, oxycodone, methylprednisolone, and gabapentin. PT and OT are seeing the patient, again we are awaiting approval for the patient to go to a halfway facility for short-term rehab services. 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 #3 essential hypertension-patient is on amlodipine #4 neurogenic bladder-patient has a chronic indwelling Dowling catheter, patient is on Detrol LA for bladder spasms #5 Acute severe protein and caloric malnutrition-as evidenced by approximately 10% unintended weight loss and p.o. intake meeting less than 75% of estimated nutritional needs x 1 month-continue regular diet, Ensure Plus high-protein 3 times daily with meals will be given to the patient, nutritional services is following Total clinical time spent by myself addressing the patient's medical issues, reviewing all of his data, and collaborating with patient's care team: 35-minute Charges/Coding Visit Charges Inpatient E&M: 84577 Subs Hosp L2
[2024-12-04 21:06] VITALS: BP 136/89; PULSE 78; RESP 16; TEMP 36.6; O2SAT 97
[2024-12-04] MEDS: traZODone 100 MG Tablet PO (21:08)
[2024-12-04] MEDS: Tamsulosin HCl 0.4 MG Capsule PO (21:08)
[2024-12-05 06:00] VITALS: BMI 29.5
[2024-12-05 06:05] VITALS: BP 130/92; PULSE 73; RESP 18; TEMP 36.6; O2SAT 97
[2024-12-05] MEDS: Gabapentin 300 MG Capsule 900 MG PO ×2 (06:06→14:20)
[2024-12-05] MEDS: oxyCODONE 5 MG Tablet PO ×2 (06:06→11:14)
[2024-12-05 07:55] VITALS: BP 138/85; PULSE 64; RESP 16; TEMP 36.3; O2SAT 98
[2024-12-05] MEDS: MethylPREDNISolone DosePak 4 MG BOX PO (08:02)
[2024-12-05] MEDS: Potassium Chloride Oral Tablet 20 MEQ PO (08:02)
[2024-12-05] MEDS: Ferrous Sulfate 325 MG Tablet PO (08:02)
[2024-12-05] MEDS: Polyethylene Glycol 3350 17 GM PACKET PO (09:26)
[2024-12-05] MEDS: Lidocaine 5% Patch 2 PATCH TOPICAL (09:26)
[2024-12-05] MEDS: Enoxaparin 40 MG/0.4 ML Syringe SC (09:26)
[2024-12-05] MEDS: Tolterodine Tartrate 4 MG CAP.SA PO (09:26)
[2024-12-05] MEDS: Acetaminophen 325 MG Tablet 650 MG PO (11:13)
--- NOTE | 2024-12-05 11:55 | PCM.TXEXTCAR ---
Diet Diet Order/Speech Therapy: 11/30/24 19:54 Diet: Regular - General Food consistency:: Regular Liquid Consistency:: Regular/Thin Type of Dietary Supplement:: Ensure Plus High Protein Diet Comments: 4 oz tid w/ meals Routine Orders/Code Status Dowling Catheter Size: 16 Code Status: Full Code DC O2, CPAP, BIPAP needs Home O2 Discharge instructions: No Wound(s) right knee: Wound Type: Abrasion left knee: Wound Type: Abrasion Therapies Weight Bearing: Full weight bearing Physical Therapy: Eval and Treat Occupational Therapy: Eval and Treat Problem/Diagnosis (1) Intractable back pain: Status: Acute Code(s): M54.9 - Dorsalgia, unspecified Plan 1. Intractable back pain with debility-patient is currently on Toradol, IV morphine, Lidoderm patch, oxycodone, methylprednisolone, and gabapentin. PT and OT are seeing the patient, again we are awaiting approval for the patient to go to a [place] [facility] facility for short-term rehab services. 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 #3 essential hypertension-patient is on amlodipine #4 neurogenic bladder-patient has a chronic indwelling Dowling catheter, patient is on Detrol LA for bladder spasms #5 Acute severe protein and caloric malnutrition-as evidenced by approximately 10% unintended weight loss and p.o. intake meeting less than 75% of estimated nutritional needs x 1 month-continue regular diet, Ensure Plus high-protein 3 times daily with meals will be given to the patient, nutritional services is following Total clinical time spent by myself addressing the patient's medical issues, reviewing all of his data, and collaborating with patient's care team: 35-minute Allergies/Procedures Done in Hospital Allergies diltiazem (From Cardizem) Adverse Reaction (Verified 11/30/24 11:42) unknown losartan (From Hyzaar) Adverse Reaction (Verified 11/30/24 11:42) unknown metoprolol (From Lopressor) Adverse Reaction (Verified 11/30/24 11:42) unknown valsartan (From Diovan) Adverse Reaction (Verified 11/30/24 11:42) unknown Procedures: None Type of Care/Length of Stay Estimated LOS: Convalescent Care Less Than 30 days Type of Care Needed: Skilled Rehab Potential: Good Prognosis: Good Additional Orders/Day of Discharge H&P will serve as current which was dated: 11/30/24 Day of Discharge: 12/05/24 Dietary and Speech Recommendations Dietitian Recommendations/Changes: Continue liberal regular diet - consider addition of Consistent CHO if gluc remains elevated Will change to 4 oz ensure plus high protein tid w/ meals per pt request to help increase nutrition intake if consumed Monitor for changes in pt nutritional status and make additional rec as indicated Discharge Plan Admission Admit Date/Time: 11/30/24 14:53 Primary Reason for Your Visit: Debility, uncontrolled back pain Attending Provider: Rich Mcdaniels Primary Care Provider: Corrie Marinelli Consulting Providers: Mai Kline Discharge Orders/Prescriptions Prescriptions: New acetaminophen 325 mg Tablet 650 mg PO Q4H PRN PRN (Reason: Fever, pain 1-10/10) Qty: 0 0RF meclizine 12.5 mg Tablet 12.5 mg PO TID PRN PRN (Reason: Dizziness) Qty: 0 0RF lidocaine 5 % Adhesive Patch,Medicated 2 patch topical DAILY Qty: 0 0RF Protocol: *Topical Application Instructions APPLICATION INSTRUCTIONS: Lumbar back gabapentin 300 mg Capsule 900 mg PO TID Qty: 0 0RF oxycodone 5 mg Tablet 5 mg PO Q4H PRN PRN (Reason: Pain Score 4-10) 3 Days Qty: 10 0RF tizanidine 2 mg Tablet 2 mg PO Q8H PRN PRN (Reason: muscle strain/spasms) Qty: 0 0RF tolterodine 4 mg Capsule,Extended Release 24hr 4 mg PO DAILY Qty: 0 0RF sennosides-docusate sodium [Stimulant Laxative Plus] 8.6-50 mg Tablet 2 tab PO BID PRN PRN (Reason: Constipation) Qty: 1 0RF amlodipine 5 mg tablet 5 mg PO DAILY Qty: 1 0RF Continued tamsulosin 0.4 mg capsule 0.4 mg PO QHS potassium chloride 20 mEq Tablet,Er Particles/Crystals 20 meq PO DAILYCM 30 Days Qty: 30 0RF ferrous sulfate 324 mg (65 mg iron) tablet,delayed release (DR/EC) 324 mg PO DAILY trazodone 100 mg tablet 100 mg PO QHS Discontinued gabapentin 300 mg capsule 600 mg PO TID acetaminophen 500 mg Tablet 1,000 mg PO Q6H PRN PRN (Reason: Pain Score 1-5) Qty: 0 0RF No Action amlodipine 10 mg tablet 10 mg PO DAILY Referrals / Follow Up: Corrie Marinelli CNS [Primary Care Provider] - Marbella Zaidi PA [Non-Staff] - Disposition Disposition (needs filled in before D/C Order can be placed): [facility]
--- NOTE | 2024-12-05 12:09 | DS.PCM_ITS ---
Providers Date of Admission: 11/30/24 Date of Discharge: 12/05/24 Primary Care Physician: MARGARITA Jacob Reason For Visit: INTRACTABLE LUMBAR BACK PAIN, FALLS Diagnosis Discharge Diagnosis (1) Intractable back pain: Status: Acute Code(s): M54.9 - Dorsalgia, unspecified Plan 1. Intractable back pain with debility-patient is currently on Toradol, IV morphine, Lidoderm patch, oxycodone, methylprednisolone, and gabapentin. PT and OT are seeing the patient, again we are awaiting approval for the patient to go to a intermediate facility for short-term rehab services. 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 #3 essential hypertension-patient is on amlodipine #4 neurogenic bladder-patient has a chronic indwelling Dowling catheter, patient is on Detrol LA for bladder spasms #5 Acute severe protein and caloric malnutrition-as evidenced by approximately 10% unintended weight loss and p.o. intake meeting less than 75% of estimated nutritional needs x 1 month-continue regular diet, Ensure Plus high-protein 3 times daily with meals will be given to the patient, nutritional services is following Total clinical time spent by myself addressing the patient's medical issues, reviewing all of his data, and collaborating with patient's care team: 35-minute Medications at Discharge Home Medications tamsulosin 0.4 mg capsule 0.4 mg PO QHS PROSTATE 03/11/23 potassium chloride 20 mEq tablet,extended release(part/cryst) 20 meq PO DAILYCM supplement 30 days #30 tabs 03/07/24 ferrous sulfate 324 mg (65 mg iron) tablet,delayed release 324 mg PO DAILY supplement 09/12/24 trazodone 100 mg tablet 100 mg PO QHS sleep 11/30/24 acetaminophen 325 mg tablet 650 mg (2 x 325 mg) PO Q4H PRN PRN Fever, pain 1- 08/31 #0 tabs 12/05/24 amlodipine 5 mg tablet 5 mg PO DAILY BP #1 TAB 12/05/24 gabapentin 300 mg capsule 900 mg (3 x 300 mg) PO TID Nerve pain #0 caps 12/05/24 lidocaine 5 % topical patch 2 patch topical DAILY pain 12/05/24 meclizine 12.5 mg tablet 12.5 mg PO TID PRN PRN Dizziness #0 tabs 12/05/24 oxycodone 5 mg tablet 5 mg PO Q4H PRN PRN Pain Score 4-10 3 days #10 tabs 12/05/24 sennosides 8.6 mg-docusate sodium 50 mg tablet (Stimulant Laxative Plus) 2 tab PO BID PRN PRN Constipation #1 TAB 12/05/24 tizanidine 2 mg tablet 2 mg PO Q8H PRN PRN muscle strain/spasms #0 tabs 12/05/24 tolterodine 4 mg capsule,extended release 24 hr 4 mg PO DAILY Overactive bladder #0 caps 12/05/24 Hospital Course Operations None Procedures None Summary of Care Provided Minutes Spent on Discharge: 31 Hospital Course: This 74-year-old white male was seen in the emergency room at [facility] with complaints of generalized weakness and intractable lower back pain. Patient has a history of degenerative joint disease of the lumbar spine. Lumbar spine CT was performed which showed multilevel degenerative changes, it appeared to be stable when compared with the previous CT of the lumbar spine. Patient was admitted to [place] [id number] and seen by PT and OT, patient was given pain medication and was felt to be appropriate for admission to a intermediate facility for short-term rehab services. Patient agreed to this. On 12/05/2024, patient was seen and examined: On examination he appeared in good health and spirits. Vital signs as documented. Skin warm and dry and without overt rashes. Neck without JVD, neck was supple, trachea midline, thyroid was normal. Lungs clear bilaterally, normal air movement was noted. Heart exam notable for regular rhythm, normal sounds and absence of murmurs, rubs or gallops. Abdomen unremarkable and without evidence of organomegaly, masses, or abdominal aortic enlargement. Bowel sounds are present, abdomen is not distended. Extremities nonedematous, no cyanosis was noted, no clubbing was noted. Neuro: Cranial nerves II through XII are grossly intact, no focal motor deficits were noted, sensation to light touch and pinprick intact, motor exam 5/5 throughout. Psych: Patient is alert and oriented x3, he does not appear anxious or depressed, he does not appear agitated. Patient appeared to be stable for discharge to a intermediate facility on 12/05/2024 Medical Records Data Medical Nutrition Assessment Dietitian: Malnutrition Criteria Met Start: 12/01/24 12:23 Freq: Status: Active Protocol: Document 12/01/24 12:23 SLA (Rec: 12/01/24 12:23 SLA [id number]) Nutrition Malnutrition Evidence of Malnutrition Exists Yes Malnutrition (severe): Acute Illness/Injury Evidenced By Suboptimal Energy Intake ( Severe),Weight Loss (Severe) Clinical Problem Altered Nutrient-Related Laboratory Values Etiology related to steroid administration Signs/Symptoms as evidenced by gluc 174 Status Active Problem Acute Disease or Injury Related Malnutrition Etiology related to acute illness and inadequate energy intake Signs/Symptoms as evidenced by ~ 10% unintended wt loss and po intake meeting <75% of est nutritional needs x 1 month Status Active Problem Recommendation Dietitian Recommendations/Changes Continue liberal regular diet - consider addition of Consistent CHO if gluc remains elevated Will provide ensure plus high protein tid w/ meals per pt request to help increase nutrition intake if consumed Monitor for changes in pt nutritional status and make additional rec as indicated Weight / BMI Weight Weight: 95.8 kg Body Mass Index (BMI) 29.5 ABG / Lab / Microbiology Data 12/01/24 05:30 12/01/24 05:30 Microbiology: Microbiology 11/30/24 12:33 Urine Catheter - Dowling Urine Culture - Final Proteus mirabilis D/C Instructions DC O2, CPAP, BIPAP Needs Home O2 Discharge instructions: No Meaningful Use Info Meaningful Use Meaningful Use Diagnoses (Choose all that apply): None applicable Ischemic Stroke Statin Dosing Therapy Reference: STATIN DOSE THERAPY REFERENCE: * Patients > 75 years receive moderate or high dose statin therapy. * Patients 75 years or YOUNGER should receive HIGH intensity statin dose unless contraindicated. You will be required to document reason for non-treatment if statin daily dose does not meet guidelines. HIGH DOSE STATIN THERAPY DAILY Atorvastatin > than or = to 40 mg Rosuvastatin > than or = to 20 mg Amlodipine + Atorvastatin > than or = to 2.5/40 mg Ezetimibe + Simvastatin 10/80 mg Simvastatin 80mg Discharge Plan Admission Admit Date/Time: 11/30/24 14:53 Primary Reason for Your Visit: Debility, uncontrolled back pain Attending Provider: Rich Mcdaniels Primary Care Provider: Corrie Marinelli Consulting Providers: Mai Kline Discharge Orders/Prescriptions Prescriptions: New acetaminophen 325 mg Tablet 650 mg PO Q4H PRN PRN (Reason: Fever, pain 1-10/10) Qty: 0 0RF meclizine 12.5 mg Tablet 12.5 mg PO TID PRN PRN (Reason: Dizziness) Qty: 0 0RF gabapentin 300 mg Capsule 900 mg PO TID Qty: 0 0RF oxycodone 5 mg Tablet 5 mg PO Q4H PRN PRN (Reason: Pain Score 4-10) 3 Days Qty: 10 0RF tizanidine 2 mg Tablet 2 mg PO Q8H PRN PRN (Reason: muscle strain/spasms) Qty: 0 0RF tolterodine 4 mg Capsule,Extended Release 24hr 4 mg PO DAILY Qty: 0 0RF sennosides-docusate sodium [Stimulant Laxative Plus] 8.6-50 mg Tablet 2 tab PO BID PRN PRN (Reason: Constipation) Qty: 1 0RF amlodipine 5 mg tablet 5 mg PO DAILY Qty: 1 0RF Continued tamsulosin 0.4 mg capsule 0.4 mg PO QHS potassium chloride 20 mEq Tablet,Er Particles/Crystals 20 meq PO DAILYCM 30 Days Qty: 30 0RF ferrous sulfate 324 mg (65 mg iron) tablet,delayed release (DR/EC) 324 mg PO DAILY trazodone 100 mg tablet 100 mg PO QHS Discontinued gabapentin 300 mg capsule 600 mg PO TID acetaminophen 500 mg Tablet 1,000 mg PO Q6H PRN PRN (Reason: Pain Score 1-5) Qty: 0 0RF No Action lidocaine 5 % Adhesive Patch,Medicated 2 patch topical DAILY Protocol: *Topical Application Instructions APPLICATION INSTRUCTIONS: Lumbar back Rx Instructions: Lumbar back Referrals / Follow Up: Corrie Marinelli CNS [Primary Care Provider] - Marbella Zaidi PA [Non-Staff] - Disposition Disposition (needs filled in before D/C Order can be placed): [facility] Charges/Coding Visit Charges Inpatient E&M: 85274 Disch Hosp >30min
--- NOTE | 2024-12-05 13:04 | CASEMGMT ---
Social Work- Prcert has been obtained. Physician notified and feels that pt is medically ready for discharge. Discharge paperwork faxed to TCU admissions. Pt notified. Bedside nurse notified. Plan; TCU; skilled level of care MARGARITA Franco
[2024-12-05] MEDS: tiZANidine HCl 2 MG Tablet PO (13:43)
[2024-12-05 14:18] VITALS: BP 146/94; PULSE 80; RESP 16; TEMP 36.7; O2SAT 97
--- NOTE | 2024-12-05 14:51 | NURSING ---
Report called to Suri at [facility].
== END 2024-12-05 15:10 | disposition skilled nursing facility (03) | DRG 551 ==
LOC: ED 14:56 → MS3 19:32
PROVIDERS: Physician Assistant; Admitting Provider Family Medicine; Emergency Provider Emergency Medicine; PCP Clinical Nurse Specialist Adult Health; Visit Provider Internal Medicine
DX: M54.50 Low back pain, unspecified (principal); E43 Unspecified severe protein-calorie malnutrition; N13.8 Other obstructive and reflux uropathy; D50.9 Iron deficiency anemia, unspecified; F32.A Depression, unspecified; I10 Essential (primary) hypertension; R54 Age-related physical debility; K21.9 Gastro-esophageal reflux disease without esophagitis; E78.5 Hyperlipidemia, unspecified; G62.9 Polyneuropathy, unspecified; Z87.891 Personal history of nicotine dependence; N31.9 Neuromuscular dysfunction of bladder, unspecified; N40.1 Benign prostatic hyperplasia with lower urinary tract symptoms; Z68.26 Body mass index [BMI] 26.0-26.9, adult
CPT/HCPCS: 36415; 72131; 80048; 80053; 81001; 82550; 83735; 84100; 85025; 85652; 86140; 87077; 87086; 87088; 87186; 94668; 97116; 97162; 97166; 97530; 97535; 97802; 99285; A4216; C1751; J2405

== ENCOUNTER 2024-12-05 15:21 | Inpatient (IN) | payer MEDICARE, SELFPAY ==
[2024-12-05 15:29] VITALS: BMI 28.0
[2024-12-05 16:10] VITALS: BP 157/93; PULSE 70; RESP 16; TEMP 36.6; O2SAT 95
--- NOTE | 2024-12-05 19:04 | NURSING ---
Hancock leaking. Dr White ordered hancock to be replaced. New hancock 18 fr. placed, pt tolerated well.
--- NOTE | 2024-12-05 19:50 | HP.PCM_ITS ---
HPI - General General Date of Admission: 12/05/24 Date of Service: 12/05/24 Chief Complaint: Here for rehabilitation. HPI Narrative MIROSLAVA PALACIO, is a 74 Male who presents with followin11/30/2024 [facility] ED numbness/tingling. Weakness worsening, lower extremity neuropathy. Chronic numbness of feet, difficult to walk. Use wheelchair to get around. Neuropathy worse up to knees for 1 week. Fell while transferring from bed to wheelchair, laid on floor for 4 hours. Called squad for help. Unable to care for self at home, lives alone. CT lumbar spine negative. Low back pain treated with Tylenol, Lidoderm, Fentanyl. 11/30/2024 Admit [facility]. PT/OT, Toradol IV, Lidoderm, Tizanidine, Medrol dose pack, Gabapentin, PO/IV Narcotics for intractable low back pain. Bowel regimen to prevent constipation. 12/01/2024 Pre-CERT for TCU. 12/02/2024 Antivert for dizziness. Lactulose for constipation. Low back pain better. 12/03/2024 Hancock changed 2/2 blockage. Detrol LA for bladder spasms. Back pain better. PT/OT for SNF. 12/04/2024 Pre-CERT for SNF. PT/OT for SNF. Pain control with multiple medications. 12/05/2024 Admit to TCU with debility, here for rehabilitation, strengthening, prior to discharge home alone. Indwelling hancock leaking, change hancock catheter to larger size. [facility] Medical History Chest pain Vision loss of right eye Anxiety Depression GERD (gastroesophageal reflux disease) Hypertension Right femoral fracture History of fractured rib (08/12/20) Anxiety Essential (primary) hypertension Hepatitis A Osteoarthritis Home Medications ?Medication ?Instructions ?Recorded ?Last Taken ?Type tamsulosin 0.4 mg capsule 0.4 mg PO QHS PROSTATE 03/11/23 12/04/24 History potassium chloride 20 mEq 20 meq PO DAILYCM supplement 30 03/07/24 12/05/24 Rx tablet,extended release(part/cryst) days #30 tabs ferrous sulfate 324 mg (65 mg 324 mg PO DAILY supplement 09/12/24 12/05/24 History iron) tablet,delayed release trazodone 100 mg tablet 100 mg PO QHS sleep 11/30/24 12/04/24 History acetaminophen 325 mg tablet 650 mg (2 x 325 mg) PO Q4H PRN PRN 12/05/24 12/05/24 Rx Fever, pain 1-1010 #0 tabs amlodipine 5 mg tablet 5 mg PO DAILY BP #1 TAB 12/05/24 Unknown Rx gabapentin 300 mg capsule 900 mg (3 x 300 mg) PO TID Nerve 12/05/24 12/05/24 Rx pain #0 caps lidocaine 5 % topical patch 2 patch topical DAILY pain 12/05/24 12/05/24 History meclizine 12.5 mg tablet 12.5 mg PO TID PRN PRN Dizziness 12/05/24 12/03/24 Rx #0 tabs oxycodone 5 mg tablet 5 mg PO Q4H PRN PRN Pain Score 12/05/24 12/05/24 Rx 4-10 3 days #10 tabs sennosides 8.6 mg-docusate sodium 2 tab PO BID PRN PRN Constipation 12/05/24 Unknown Rx 50 mg tablet (Stimulant Laxative #1 TAB Plus) tizanidine 2 mg tablet 2 mg PO Q8H PRN PRN muscle 12/05/24 12/04/24 Rx strain/spasms #0 tabs tolterodine 4 mg capsule,extended 4 mg PO DAILY Overactive bladder 12/05/24 12/05/24 Rx release 24 hr #0 caps Allergy/AdvReac Type Severity Reaction Status Date / Time diltiazem (From Cardizem) AdvReac unknown Verified 11/30/24 11:42 losartan (From Hyzaar) AdvReac unknown Verified 11/30/24 11:42 metoprolol (From Lopressor) AdvReac unknown Verified 11/30/24 11:42 valsartan (From Diovan) AdvReac unknown Verified 11/30/24 11:42 Family History Mother Heart disease Cancer breast Sister Heart disease Father , in a train accident. No problems noted. Surgical History History of lumbar laminectomy for spinal cord decompression History of shoulder surgery History of elbow surgery History of hip replacement Social History household members: none Smoking Status: Former smoker quit date: 11/22/92 pack-years: 46 alcohol intake: former year quit: 1991 substance use type: does not use ROS Constitutional Constitutional: Reports weakness; Denies chills, fever(s) or weight gain ENT HEENT: Denies headache(s), nasal congestion or nasal discharge Cardiovascular Cardiovascular: Denies chest pain or palpitations Respiratory/Chest Respiratory/Chest: Denies cough, excessive phlegm production or shortness of breath with exertion Gastrointestinal Gastrointestinal: Denies abdominal pain, nausea or vomiting Genitourinary Genitourinary: Denies dysuria Musculoskeletal Musculoskeletal: Denies joint pain or joint swelling Integumentary Integumentary: Denies rash or wounds Neurologic Neurologic: Denies focal weakness, numbness or tingling Psychiatric Psychiatric: Denies anxiety, auditory hallucinations, depression, homicidal ideation or suicidal ideation Vital Signs Vital Signs Vital Signs: 12/05/24 15:29 12/05/24 16:10 Temperature 98 F Temperature Source Temporal Pulse Rate 70 Pulse Rhythm Regular Pulse Strength Normal (2+) Respiratory Rate 16 Respiratory Effort Normal Non-Labored Respiratory Depth Normal Respiratory Pattern Normal Blood Pressure 157/93 H Blood Pressure Mean 114 Blood Pressure Source Monitor Blood Pressure Position Semi-Fowlers Blood Pressure Location Right Arm Pulse Ox 95 Oxygen Delivery Method Room Air Room Air Weight Weight: 90.945 kg Body Mass Index (BMI) 28.0 Physical Exam Const alert General Appearance: cooperative HEENT normocephalic Eyes PERRL and EOMs intact bilaterally Neck supple, no JVD and no carotid bruits Resp normal respiratory effort, normal air movement and clear to auscultation bilaterally Cardio regular rate and regular rhythm GI normal to inspection, nondistended, normoactive bowel sounds, non-tender and non-distended Bladder / Kidney Exam: catheter in place urethral Extremity normal capillary refill General Extremity: Negative for edema Skin no rashes or lesions noted General Skin Exam: no breakdown Neuro moves all extremities Speech: speech normal Psych affect normal Appearance: appropriate Assessment & Plan Assessment/Plan (1) Debility: (2) Intractable back pain: (3) Neuropathic pain of both legs: (4) Chronic indwelling Hancock catheter: (5) Essential (primary) hypertension: (6) Depression: (7) Iron deficiency anemia: (8) BPPV (benign paroxysmal positional vertigo): QUALIFIERS: Laterality: unspecified laterality Qualified Code(s): H81.10 - Benign paroxysmal vertigo, unspecified ear (9) Insomnia: (10) BPH (benign prostatic hyperplasia): PLAN: Plan 74 year old male with below past medical history hospitalized for intractable low back pain, failure to thrive, fall, admitted to TCU with debility, here for rehabilitation, strengthening, prior to discharge home alone. * Debility - PT/OT. * Dysphagia - ST. * Pain - Tylenol 1000mg q6 prn (1-3), Oxycodone 5mg q4 prn pain (4-10), Lidoderm 2 patches TD daily. * Bowel - senna/colace 2 tablets bid, Magnesium citrate 300mL daily prn. * Adult immunization - Administer pneumonia vaccine, covid vaccine, flu vaccine as appropriate. * DVT prophylaxis - Lovenox 40mg sc daily. * Hypertension - Amlodipine 5mg daily. * Iron deficiency anemia - Ferrous sulfate 325mg daily. * Neuropathic pain - Gabapentin 900mg tid. * BPPV - Meclizine 12.5mg tid prn. * Hypokalemia - KCL 20meq daily, monitor. * BPH/urinary retention - Tamsulosin 0.4mg daily, chronic indwelling hancock catheter, change 2/2 leaking. * Bladder spasms - Tolterodine 4mg daily. * Muscle spasm - Tizanidine 2mg q8 prn. * Insomnia - Trazodone 100mg qhs. * Skin irritation - Calmoseptine topical bid, Eucerin topical bid prn. * Tinea Corporis - Nystatin powder topical bid.
[2024-12-05] MEDS: Gabapentin 300 MG Capsule 900 MG PO (21:55)
[2024-12-05] MEDS: Senna/Docusate Sodium 1 Tablet 2 TABLET PO (21:56)
[2024-12-05] MEDS: Tamsulosin HCl 0.4 MG Capsule PO (21:56)
[2024-12-05] MEDS: traZODone 100 MG Tablet PO (21:57)
[2024-12-05] MEDS: Menthol/Lanolin/Calamine/Znox 113 GM Tube 1 APPLIC TOPICAL (21:57)
[2024-12-05] MEDS: Nystatin Powder 15gm Bottle 1 APPLIC TOPICAL (21:57)
[2024-12-06 05:44] LABS: Absolute Lymphocyte Count 1.84 X10^3/uL (0.83-4.51); Absolute Neutrophil Count 5.4 X10^3/uL (2.0-7.7); Basophil# 0.11 X10^3/uL; Basophil% 1.3 % (0-1); Eosinophil# 0.35 X10^3/uL; Eosinophils% 4.1 % (0-5); Hemoglobin 12.6 g/dL (13.0-16.5); Lymphocyte # 1.84 X10^3/ul (0.83-4.51); Lymphocyte % 21.4 % (19-41); Mean Corp Hgb Conc 32.3 g/dL (32-36); Mean Corpuscular Hgb 29.3 pg (27.0-32.0); Mean Corpuscular Volume 90.7 fL (80-94); Monocyte# 0.85 X10^3/uL; Monocyte% 9.9 % (0-10); NRBC Flagged by Analyzer 0 % (0-5); Neutrophil # 5.35 X10^3/uL (2.7-7.7); Neutrophil % 62.4 % (47-70); Platelet Count 273 K/mm3 (150-450); RBC Distribution Width CV 15.8 % (11.6-14.6); RBC Distribution Width SD 52.4 fl (35.1-43.9); White Blood Count 8.6 K/mm3 (4.4-11.0)
[2024-12-06] MEDS: Gabapentin 300 MG Capsule 900 MG PO ×3 (05:46→22:37)
[2024-12-06 06:22] LABS: Anion Gap 4 (5-15); BUN 23 mg/dL (7-18); BUN/Creat Ratio 22.8 RATIO (10-20); Calcium,Total 8.9 mg/dL (8.5-10.1); Chloride 103 mmol/L (98-107); Creatinine, Serum 1.01 mg/dL (0.70-1.30); EST Glomerular Filtration Rate 77 mL/min (>60); Est Glom Filt Rate - Afr Amer 93 mL/min (>60); Estimated Creatinine Clearance 71.67 ml/min; Glucose 110 mg/dL (74-106); Potassium 3.9 mmol/L (3.5-5.1); Sodium Level 135 mmol/L (136-145)
[2024-12-06] MEDS: Enoxaparin 40 MG/0.4 ML Syringe SC (06:57)
[2024-12-06 08:02] VITALS: BP 121/90; PULSE 64; RESP 16; TEMP 37; O2SAT 95
[2024-12-06] MEDS: Tolterodine Tartrate 4 MG CAP.SA PO (08:04)
[2024-12-06] MEDS: Senna/Docusate Sodium 1 Tablet 2 TABLET PO ×2 (08:04→22:39)
[2024-12-06] MEDS: Potassium Chloride Oral Tablet 20 MEQ PO (08:04)
[2024-12-06] MEDS: Lidocaine 5% Patch 2 PATCH TOPICAL (08:04)
[2024-12-06] MEDS: Menthol/Lanolin/Calamine/Znox 113 GM Tube 1 APPLIC TOPICAL ×2 (08:05→22:40)
[2024-12-06] MEDS: Nystatin Powder 15gm Bottle 1 APPLIC TOPICAL ×2 (08:05→22:40)
[2024-12-06] MEDS: amLODIPine 10 MG Tablet PO (08:08)
[2024-12-06 10:00] VITALS: PULSE 75; RESP 16; O2SAT 95
[2024-12-06] MEDS: Ferrous Sulfate 325 MG Tablet PO (11:04)
[2024-12-06] MEDS: Tuberculin,Purif.prot.deriv. 50 TU/ML Vial 0.1 ML ID (11:06)
[2024-12-06] MEDS: oxyCODONE 5 MG Tablet PO ×2 (11:17→22:44)
--- NOTE | 2024-12-06 11:57 | NURSING ---
Lpn Cma Note; Activity Asst: Complete Norm has returned to TCU for more therapy and prefers to be called Antonio Alvarez remains independent in his choice of daily activities. 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 He welcomes visits from the ux research associate and therapy dog when available. Staff will Continue to remind him of weekly activities and respect his right to say no.
[2024-12-06] MEDS: tiZANidine HCl 2 MG Tablet PO (14:23)
--- NOTE | 2024-12-06 16:53 | PCM.PN.DRR ---
Documented by User: Cristiana Perez 12/06/24 17:12 TCU RX Drug Regimen Review Subjective/Objective Subjective/Objective Subjective: TCU Admission. 74 YOM presented to the ER with numbness/tingling. Hospitalized for intractable low back pain, failure to thrive, fall. Admitted to TCU with debility for strengthening and rehabilitation. Objective: Allergies diltiazem (From Cardizem) Adverse Reaction (Verified 11/30/24 11:42) unknown losartan (From Hyzaar) Adverse Reaction (Verified 11/30/24 11:42) unknown metoprolol (From Lopressor) Adverse Reaction (Verified 11/30/24 11:42) unknown valsartan (From Diovan) Adverse Reaction (Verified 11/30/24 11:42) unknown Current Medications Generic Name Dose Route Start Last Admin Trade Name Freq PRN Reason Stop Dose Admin Acetaminophen 1,000 mg 12/05/24 20:09 Acetaminophen 500 Mg Tablet PO Q6H PRN PRN Pain Score 1-3 Amlodipine Besylate 10 mg 12/06/24 10:00 12/06/24 08:08 Amlodipine 10 Mg Tablet PO 10 mg DAILY ALECIA Administration Protocol Calamine/Phenol 1 applic 12/05/24 22:00 12/06/24 08:05 Menthol/Lanolin/Calamine/Znox 113 Gm Tube TOPICAL 1 applic BID ALECIA Administration Protocol Enoxaparin Sodium 40 mg 12/06/24 06:00 12/06/24 06:57 Enoxaparin 40 Mg/0.4 Ml Syringe SC 40 mg DAILY@0600 ALECIA Administration Ferrous Sulfate 325 mg 12/06/24 12:00 12/06/24 11:04 Ferrous Sulfate 325 Mg Tablet PO 325 mg LUNCH ALECIA Administration Gabapentin 900 mg 12/05/24 22:00 12/06/24 14:23 Gabapentin 300 Mg Capsule PO 900 mg TID ALECIA Administration Lidocaine 2 patch 12/06/24 10:00 12/06/24 08:04 Lidocaine 5% Patch TOPICAL 2 patch DAILY ALECIA Administration Protocol Magnesium Citrate 300 ml 12/05/24 20:08 Magnesium Citrate 300 Ml PO DAILY PRN Constipation Meclizine HCl 12.5 mg 12/05/24 15:40 Meclizine 12.5 Mg Tablet PO TID PRN PRN Dizziness Multi-Ingredient Cream 1 applic 12/05/24 17:31 Petrolatum 33% Tube TOPICAL BID PRN PRN DRY SKIN Protocol Nystatin 1 applic 12/05/24 22:00 12/06/24 08:05 Nystatin Powder 15gm Bottle TOPICAL 1 applic BID ALECIA Administration Protocol Oxycodone HCl 5 mg 12/05/24 15:40 12/06/24 11:17 Oxycodone 5 Mg Tablet PO 5 mg Q4H PRN PRN Administration Pain Score 4-10 Potassium Chloride 20 meq 12/06/24 08:00 12/06/24 08:04 Potassium Chloride Oral Tablet 20 Meq PO 20 meq DAILYCM ALECIA Administration Senna/Docusate Sodium 2 tablet 12/05/24 22:00 12/06/24 08:04 Senna/Docusate Sodium 1 Tablet PO 2 tablet BID ALECIA Administration Tamsulosin HCl 0.4 mg 12/05/24 22:00 12/05/24 21:56 Tamsulosin Hcl 0.4 Mg Capsule PO 0.4 mg QHS ALECIA Administration Tizanidine HCl 2 mg 12/05/24 15:40 12/06/24 14:23 Tizanidine Hcl 2 Mg Tablet PO 2 mg Q8H PRN PRN Administration muscle strain/spasms Tolterodine Tartrate 4 mg 12/06/24 10:00 12/06/24 08:04 Tolterodine Tartrate 4 Mg Cap.Sa PO 4 mg DAILY ALECIA Administration Trazodone HCl 100 mg 12/05/24 22:00 12/05/24 21:57 Trazodone 100 Mg Tablet PO 100 mg QHS ALECIA Administration Tuberculin PPD 0.1 ml 12/13/24 10:00 Tuberculin,Purif.Prot.Deriv. 50 Tu/Ml Vial ID 12/13/24 10:01 X1 ONE Problem List Intractable back pain (Acute) Neuropathic pain of both legs (Acute) Chronic indwelling Dowling catheter (Chronic) BPPV (benign paroxysmal positional vertigo) (Acute) Insomnia (Acute) Iron deficiency anemia (Acute) BPH (benign prostatic hyperplasia) (Acute) Essential (primary) hypertension (Acute) Debility (Acute) Depression (Acute) Vital Signs Temp Pulse Resp BP Pulse Ox O2 Del Method 98.6 F 75 16 121/90 H 95 Room Air 12/06/24 08:02 12/06/24 10:00 12/06/24 10:00 12/06/24 08:02 12/06/24 10:00 12/06/24 10:00 Oxygen Delivery Method Room Air Weight: 90.945 kg Body Mass Index (BMI) 28.0 Sodium 135 mmol/L (136-145) L 12/06/24 05:22 Potassium 3.9 mmol/L (3.5-5.1) 12/06/24 05:22 Chloride 103 mmol/L (98-107) 12/06/24 05:22 Carbon Dioxide 28.0 mmol/L (21.0-32.0) 12/06/24 05:22 Anion Gap 4 (5-15) L 12/06/24 05:22 BUN 23 mg/dL (7-18) H 12/06/24 05:22 Creatinine 1.01 mg/dL (0.70-1.30) 12/06/24 05:22 Est GFR (MDRD) Af Amer 93 mL/min (>60) 12/06/24 05:22 Est GFR (MDRD) Non-Af 77 mL/min (>60) 12/06/24 05:22 BUN/Creatinine Ratio 22.8 RATIO (10-20) H 12/06/24 05:22 Glucose 110 mg/dL (74-106) H 12/06/24 05:22 Assessment/Plan: 1. Pain: acetaminophen 1000mg PO Q6H PRN pain 1-3, oxycodone 5mg PO Q4H PRN pain 4-10 and lidocaine 5% patch 2 patches topical daily. Resident has not had any doses of tylenol but had 1 dose of oxycodone for a pain score of 7 in the back. Please continue to monitor for increased pain, PRN usage, constipation, falls (BEERs), respiratory depression, rash. 2. Bowel: senna/docusate 2T PO BID and magnesium citrate 300mL PO daily PRN constipation. Resident has not had any PRN doses. Please continue to monitor for constipation and PRN usage. Last documented bowel movement was 12/05. 3. DVT prophylaxis: enoxaparin 40mg SC daily. Please continue to monitor for S/S of bleeding, hemoglobin (last 12.6g/dL), platelets (last 273,000) and renal function. 4. Hypertension: amlodipine 5mg PO daily. Please continue to monitor for BP (last 121/90) and swelling. 5. BPPV: meclizine 12.5mg PO TID PRN dizziness. No dose given. Please continue to monitor for S/S of dizziness, vertigo and PRN usage. 6. Iron deficiency anemia: ferrous sulfate 325mg PO daily. Please continue to monitor hemoglobin, dark stools, constipation. 7. Hypokalemia: potassium chloride 20mEq PO daily. Please continue to monitor potassium. 8. BPH/urinary retention: tamsulosin 0.4mg PO daily. Please continue to monitor for S/S of retention and BP. 9. Bladder spasms: tolterodine 4mg PO daily. Please continue to monitor for S/S of bladder spasms and dementia/delirium (BERRs). 10. Muscle spasm: tizanidine 2mg PO Q8H PRN muscle spasms. Resident has had 1 dose. Please continue to monitor for PRN usage, muscle spams and drowsiness. 11. Skin irritation/Tinea Corporis: Calmoseptine topical bid, Eucerin topical bid prn dry skin (none given), Nystatin powder topical bid. Please continue to monitor. Assessment/Plan for indications treated with psychotropic medications: 1. Neuropathic pain: gabapentin 900mg PO TID. GDR not appropriate as this medication is being used for neuropathic pain. Please continue to monitor for confusion, renal function, and falls/fractures (BEERs). 2. Insomnia: trazodone 100mg PO QHS. Please consider GDR by 05/2025 if clinically appropriate. Thanks. Please continue to monitor for excessive daytime drowsiness and insomnia. Medical chart and medication regimen reviewed. The following medication irregularities or issues were identified: 1. Trazodone 100mg PO QHS. Please consider GDR by 05/2025 if clinically appropriate. Thanks. Date Date of Note: 12/06/24 Documented by User: Dr. Nhan White MD 12/06/24 17:14 TCU RX Drug Regimen Review Provider Comments Provider responsibility Provider Comments to Recommendations by Pharmacy Agree (Consider GDR for Trazodone by May 2025.)
[2024-12-06] MEDS: Tamsulosin HCl 0.4 MG Capsule PO (22:38)
[2024-12-06] MEDS: traZODone 100 MG Tablet PO (22:38)
[2024-12-07] MEDS: Gabapentin 300 MG Capsule 900 MG PO ×3 (05:28→22:05)
[2024-12-07] MEDS: oxyCODONE 5 MG Tablet PO ×2 (05:28→22:04)
[2024-12-07] MEDS: Enoxaparin 40 MG/0.4 ML Syringe SC (05:28)
[2024-12-07 09:20] VITALS: BP 90/61; PULSE 90; RESP 16; TEMP 36.6; O2SAT 94
[2024-12-07] MEDS: Potassium Chloride Oral Tablet 20 MEQ PO (09:24)
[2024-12-07] MEDS: Nystatin Powder 15gm Bottle 1 APPLIC TOPICAL ×2 (09:25→22:05)
[2024-12-07] MEDS: Senna/Docusate Sodium 1 Tablet 2 TABLET PO (09:25)
[2024-12-07] MEDS: Tolterodine Tartrate 4 MG CAP.SA PO (09:25)
[2024-12-07] MEDS: Menthol/Lanolin/Calamine/Znox 113 GM Tube 1 APPLIC TOPICAL ×2 (09:26→22:07)
[2024-12-07] MEDS: Lidocaine 5% Patch 2 PATCH TOPICAL (11:33)
[2024-12-07] MEDS: Ferrous Sulfate 325 MG Tablet PO (12:01)
[2024-12-07 12:02] VITALS: BP 103/74; PULSE 100
[2024-12-07] MEDS: Magnesium Citrate 300 ML PO (13:29)
--- NOTE | 2024-12-07 17:51 | CASEMGMT ---
Social Work SW met with pt to complete initial assessment. SW introduced self and rold of SW. Cotacts were verified. Pt confirms code status as full code. Pt states he has completed Advance Directives naming his dgt Ailin however he is unable to get a copy to the hospital. SW educated pt to [facility] benefit and that NRD is today 12/07 and continued stay is not guaranteed with each review. Pt's goal is to return home alone. Pt does state that he is unable to shower, do laundry, get meals, write checks. Pt is current with [facility] PT[facility]OT/SN but pt states they do not provide much help to him. Pt also receives MOW but states he often just has a bowl of cereal or two all day long. SW spoke with pt regarding AL or ECF. Pt is not interested in this at this time as he feels after therapy, he will be able to care for himself at home. SW discussed [facility] and pt is agreeable to a referral. SW to continue to follow for DC planning. MARGARITA Payan
[2024-12-07 19:35] VITALS: RESP 16
[2024-12-07] MEDS: Tamsulosin HCl 0.4 MG Capsule PO (22:04)
[2024-12-07] MEDS: traZODone 100 MG Tablet PO (22:04)
[2024-12-07] MEDS: Acetaminophen 500 MG Tablet 1000 MG PO (22:09)
[2024-12-08] MEDS: Enoxaparin 40 MG/0.4 ML Syringe SC (06:47)
[2024-12-08] MEDS: Gabapentin 300 MG Capsule 900 MG PO ×3 (06:47→21:01)
[2024-12-08] MEDS: oxyCODONE 5 MG Tablet PO ×2 (06:47→21:01)
[2024-12-08 09:48] VITALS: BP 111/75; PULSE 74; RESP 17; TEMP 36.6; O2SAT 94
[2024-12-08] MEDS: Potassium Chloride Oral Tablet 20 MEQ PO (09:53)
[2024-12-08] MEDS: Tolterodine Tartrate 4 MG CAP.SA PO (09:53)
[2024-12-08] MEDS: Menthol/Lanolin/Calamine/Znox 113 GM Tube 1 APPLIC TOPICAL ×2 (09:53→21:05)
[2024-12-08] MEDS: Nystatin Powder 15gm Bottle 1 APPLIC TOPICAL ×2 (09:54→21:04)
[2024-12-08] MEDS: Lidocaine 5% Patch 2 PATCH TOPICAL (09:54)
[2024-12-08] MEDS: Senna/Docusate Sodium 1 Tablet 2 TABLET PO ×2 (09:55→21:04)
[2024-12-08] MEDS: Ferrous Sulfate 325 MG Tablet PO (14:58)
--- NOTE | 2024-12-08 15:58 | CHAPLAIN ---
Type of Pastoral Visit _x__ Initial Visit ___ Follow-up Visit ___ On-call Visit ___ General Patient Visit ___ Spiritual Assessment ___ Family Conference ___ Bereavement ___ Rapid Response ___ Code Blue ___ Other (describe below) Pastoral Care Referral From _x_ Patient ___ Family ___ Nurse ___ Physician ___ Cafeteria Table Attendant ___ Net Software Developer ___ Other (describe below) Sacrament/Intervention _x__ Active listening ___ Anointing ___ Hinduism ___ Bereavement ___ Communion _x__ Ewelina exploration ___ _x__ Life review _x__ Prayer ___ Reconciliation ___ Sacrament of Sick _x__ Supportive presence ___ Wedding ___ Other (describe below) Pastoral Comments the patient was seen earlier this week in [facility] and this was a follow up to see how he is doing in TCU; pt was finishing his therapy; pt is talkative and expressive; pt has doubts about his ability to improve and he has admission of lack of ewelina as opposed to his earlier days; paper core machine operator of the patient did visit this week; pt welcomes presence and prayer
--- NOTE | 2024-12-08 16:12 | CASEMGMT ---
Social Work Referral made to [facility] to assess for home services. MARGARITA Payan
[2024-12-08] MEDS: traZODone 100 MG Tablet PO (21:01)
[2024-12-08] MEDS: Tamsulosin HCl 0.4 MG Capsule PO (21:02)
[2024-12-08] MEDS: Acetaminophen 500 MG Tablet 1000 MG PO (21:09)
[2024-12-09] MEDS: oxyCODONE 5 MG Tablet PO ×2 (02:13→20:23)
[2024-12-09] MEDS: tiZANidine HCl 2 MG Tablet PO (05:46)
[2024-12-09] MEDS: Acetaminophen 500 MG Tablet 1000 MG PO ×2 (05:46→20:22)
[2024-12-09] MEDS: Gabapentin 300 MG Capsule 900 MG PO ×3 (05:47→21:16)
[2024-12-09] MEDS: Enoxaparin 40 MG/0.4 ML Syringe SC (05:48)
[2024-12-09] MEDS: Potassium Chloride Oral Tablet 20 MEQ PO (08:45)
[2024-12-09] MEDS: Senna/Docusate Sodium 1 Tablet 2 TABLET PO ×2 (08:46→21:14)
[2024-12-09] MEDS: Menthol/Lanolin/Calamine/Znox 113 GM Tube 1 APPLIC TOPICAL ×2 (08:46→20:20)
[2024-12-09] MEDS: Tolterodine Tartrate 4 MG CAP.SA PO (08:46)
[2024-12-09] MEDS: amLODIPine 5 MG Tablet PO (08:46)
[2024-12-09] MEDS: Nystatin Powder 15gm Bottle 1 APPLIC TOPICAL ×2 (08:47→20:24)
[2024-12-09] MEDS: Lidocaine 5% Patch 2 PATCH TOPICAL (08:49)
[2024-12-09] MEDS: Ferrous Sulfate 325 MG Tablet PO (12:22)
[2024-12-09 14:31] VITALS: BP 118/72; PULSE 71; RESP 12; TEMP 36.5; O2SAT 92
[2024-12-09] MEDS: traZODone 100 MG Tablet PO (21:14)
[2024-12-09] MEDS: Tamsulosin HCl 0.4 MG Capsule PO (21:14)
[2024-12-10] MEDS: Enoxaparin 40 MG/0.4 ML Syringe SC (06:20)
[2024-12-10] MEDS: Gabapentin 300 MG Capsule 900 MG PO ×3 (06:20→21:29)
[2024-12-10 08:45] VITALS: BP 114/74; PULSE 82; RESP 17; TEMP 36.9; O2SAT 92
[2024-12-10] MEDS: Menthol/Lanolin/Calamine/Znox 113 GM Tube 1 APPLIC TOPICAL ×2 (08:48→20:16)
[2024-12-10] MEDS: Potassium Chloride Oral Tablet 20 MEQ PO (08:48)
[2024-12-10] MEDS: amLODIPine 5 MG Tablet PO (08:49)
[2024-12-10] MEDS: Lidocaine 5% Patch 2 PATCH TOPICAL (08:49)
[2024-12-10] MEDS: Nystatin Powder 15gm Bottle 1 APPLIC TOPICAL ×2 (08:49→20:17)
[2024-12-10] MEDS: Tolterodine Tartrate 4 MG CAP.SA PO (08:49)
[2024-12-10] MEDS: Senna/Docusate Sodium 1 Tablet 2 TABLET PO ×2 (08:49→21:30)
[2024-12-10] MEDS: Acetaminophen 500 MG Tablet 1000 MG PO ×2 (08:53→20:16)
[2024-12-10] MEDS: oxyCODONE 5 MG Tablet PO ×2 (08:53→20:16)
[2024-12-10] MEDS: Ferrous Sulfate 325 MG Tablet PO (13:13)
[2024-12-10 20:00] VITALS: PULSE 80; RESP 18; O2SAT 97
[2024-12-10] MEDS: Tamsulosin HCl 0.4 MG Capsule PO (21:29)
[2024-12-10] MEDS: traZODone 100 MG Tablet PO (21:30)
[2024-12-11] MEDS: Enoxaparin 40 MG/0.4 ML Syringe SC (06:04)
[2024-12-11] MEDS: Gabapentin 300 MG Capsule 900 MG PO ×3 (06:04→21:53)
[2024-12-11 07:50] VITALS: BP 132/85; PULSE 78; RESP 16; TEMP 36.8; O2SAT 93
[2024-12-11] MEDS: Lidocaine 5% Patch 2 PATCH TOPICAL (07:51)
[2024-12-11] MEDS: amLODIPine 5 MG Tablet PO (07:52)
[2024-12-11] MEDS: Senna/Docusate Sodium 1 Tablet 2 TABLET PO ×2 (07:52→21:51)
[2024-12-11] MEDS: Tolterodine Tartrate 4 MG CAP.SA PO ×2 (07:52→21:53)
[2024-12-11] MEDS: Potassium Chloride Oral Tablet 20 MEQ PO (07:52)
[2024-12-11] MEDS: Nystatin Powder 15gm Bottle 1 APPLIC TOPICAL ×2 (07:52→21:55)
[2024-12-11] MEDS: Menthol/Lanolin/Calamine/Znox 113 GM Tube 1 APPLIC TOPICAL ×2 (07:53→21:56)
[2024-12-11] MEDS: Ferrous Sulfate 325 MG Tablet PO (13:09)
[2024-12-11] MEDS: oxyCODONE 5 MG Tablet PO ×2 (13:11→21:51)
[2024-12-11] MEDS: Acetaminophen 500 MG Tablet 1000 MG PO ×2 (13:11→21:52)
[2024-12-11 15:34] VITALS: PULSE 88; RESP 16; O2SAT 94
[2024-12-11] MEDS: Tamsulosin HCl 0.4 MG Capsule PO (21:53)
[2024-12-11] MEDS: traZODone 100 MG Tablet PO (21:53)
[2024-12-12] MEDS: Enoxaparin 40 MG/0.4 ML Syringe SC (06:00)
[2024-12-12] MEDS: Gabapentin 300 MG Capsule 900 MG PO ×2 (06:00→14:42)
[2024-12-12 09:40] VITALS: BP 123/79; PULSE 80; RESP 16; TEMP 36.4; O2SAT 93
[2024-12-12] MEDS: Potassium Chloride Oral Tablet 20 MEQ PO (09:41)
[2024-12-12] MEDS: Ferrous Sulfate 325 MG Tablet PO (09:41)
[2024-12-12] MEDS: Lidocaine 5% Patch 2 PATCH TOPICAL (09:41)
[2024-12-12] MEDS: Menthol/Lanolin/Calamine/Znox 113 GM Tube 1 APPLIC TOPICAL (09:42)
[2024-12-12] MEDS: Nystatin Powder 15gm Bottle 1 APPLIC TOPICAL (09:42)
[2024-12-12] MEDS: Senna/Docusate Sodium 1 Tablet 2 TABLET PO (09:42)
[2024-12-12] MEDS: amLODIPine 5 MG Tablet PO (09:45)
--- NOTE | 2024-12-12 10:49 | NURSING ---
Offered covid vaccine, VIS provided. Resident refuses at this time.
[2024-12-12] MEDS: oxyCODONE 5 MG Tablet PO (14:41)
--- NOTE | 2024-12-12 14:44 | NURSING ---
DR BROWN NOTIFIED OF HEMATURIA, LAWSON FLUSHED EARLIER IN SHIFT WITH 60CC W/OUT RESISTANCE. PT FEELS IT MAY HAVE BEEN TUGGED ON BY ACCIDENT WITH TURNING IN BED OR TRANSFERRING, NEW ORDER TO HOLD LOVENOX X3 DAYS. PT UPDATED.
[2024-12-12 15:47] VITALS: BMI 28.4
--- NOTE | 2024-12-12 16:03 | CASEMGMT ---
Social Work SW completed BIMS () and PHQ-2 () for MDS assessment. Huyen Davis, ADMINISTRATIVE ASSISTANT RECEPTIONIST GAS LINE INSTALLER
--- NOTE | 2024-12-12 17:19 | NURSING ---
Addendum entered by Christie Solis 12/12/24 18:03: pt started with rigors/shakey of arms. c/o nausea, stomach ache, legs hurting. vitals obtained, BP elevated. dr méndez notified, new order to send to ER. afebrile. took pt to ER and pt began vomiting while attempting to transfer from TCU bed to ER bed. alert & oriented. hancock intact and draining. empty bag 575cc hematuria with sediment and mucus. Original Note: pt with small emesis, continues with hematuria but also noted thick tannish mucus in hancock bag when emptying. dr méndez notified, new order for UA C&S.
[2024-12-12 18:04] VITALS: BP 150/109; PULSE 78; RESP 18; TEMP 37; O2SAT 96
--- NOTE | 2024-12-13 07:35 | DS.PCM_ITS ---
Providers Date of Admission: 12/05/24 Primary Care Physician: MARGARITA Jacob Reason For Visit: BACK PAIN Diagnosis Discharge Diagnosis (1) Debility: Status: Inactive Code(s): R53.81 - Other malaise (2) Intractable back pain: Status: Inactive Code(s): M54.9 - Dorsalgia, unspecified (3) Neuropathic pain of both legs: Status: Inactive Code(s): G57.93 - Unspecified mononeuropathy of bilateral lower limbs (4) Chronic indwelling Hancock catheter: Status: Inactive Code(s): Z97.8 - Presence of other specified devices (5) Essential (primary) hypertension: Status: Acute Code(s): I10 - Essential (primary) hypertension (6) Depression: Status: Acute Code(s): F32.A - Depression, unspecified (7) Iron deficiency anemia: Status: Acute Code(s): D50.9 - Iron deficiency anemia, unspecified (8) BPPV (benign paroxysmal positional vertigo): Status: Acute Code(s): H81.10 - Benign paroxysmal vertigo, unspecified ear Qualifiers: Laterality: unspecified laterality Qualified Code(s): H81.10 - Benign paroxysmal vertigo, unspecified ear (9) Insomnia: Status: Acute Code(s): G47.00 - Insomnia, unspecified (10) BPH (benign prostatic hyperplasia): Status: Acute Code(s): N40.0 - Benign prostatic hyperplasia without lower urinary tract symptoms Plan 74 year old male with below past medical history hospitalized for intractable low back pain, failure to thrive, fall, admitted to TCU with debility, here for rehabilitation, strengthening, prior to discharge home alone. * Debility - PT/OT. * Dysphagia - ST. * Pain - Tylenol 1000mg q6 prn (1-3), Oxycodone 5mg q4 prn pain (4-10), Lidoderm 2 patches TD daily. * Bowel - senna/colace 2 tablets bid, Magnesium citrate 300mL daily prn. * Adult immunization - Administer pneumonia vaccine, covid vaccine, flu vaccine as appropriate. * DVT prophylaxis - Lovenox 40mg sc daily. * Hypertension - Amlodipine 5mg daily. * Iron deficiency anemia - Ferrous sulfate 325mg daily. * Neuropathic pain - Gabapentin 900mg tid. * BPPV - Meclizine 12.5mg tid prn. * Hypokalemia - KCL 20meq daily, monitor. * BPH/urinary retention - Tamsulosin 0.4mg daily, chronic indwelling hancock catheter, change 2/2 leaking. * Bladder spasms - Tolterodine 4mg daily. * Muscle spasm - Tizanidine 2mg q8 prn. * Insomnia - Trazodone 100mg qhs. * Skin irritation - Calmoseptine topical bid, Eucerin topical bid prn. * Tinea Corporis - Nystatin powder topical bid. Medications at Discharge Home Medications tamsulosin 0.4 mg capsule 0.4 mg PO QHS PROSTATE 03/11/23 potassium chloride 20 mEq tablet,extended release(part/cryst) 20 meq PO DAILYCM supplement 30 days #30 tabs 03/07/24 ferrous sulfate 324 mg (65 mg iron) tablet,delayed release 324 mg PO DAILY supplement 09/12/24 trazodone 100 mg tablet 100 mg PO QHS sleep 11/30/24 acetaminophen 325 mg tablet 650 mg (2 x 325 mg) PO Q4H PRN PRN Fever, pain 1- 08/31 #0 tabs 12/05/24 amlodipine 5 mg tablet 5 mg PO DAILY BP #1 TAB 12/05/24 gabapentin 300 mg capsule 900 mg (3 x 300 mg) PO TID Nerve pain #0 caps 12/05/24 lidocaine 5 % topical patch 2 patch topical DAILY pain 12/05/24 meclizine 12.5 mg tablet 12.5 mg PO TID PRN PRN Dizziness #0 tabs 12/05/24 oxycodone 5 mg tablet 5 mg PO Q4H PRN PRN Pain Score 4-10 3 days #10 tabs 12/05/24 sennosides 8.6 mg-docusate sodium 50 mg tablet (Stimulant Laxative Plus) 2 tab PO BID PRN PRN Constipation #1 TAB 12/05/24 tizanidine 2 mg tablet 2 mg PO Q8H PRN PRN muscle strain/spasms #0 tabs 12/05/24 tolterodine 4 mg capsule,extended release 24 hr 4 mg PO DAILY Overactive bladder #0 caps 12/05/24 Hospital Course Operations None Procedures None Summary of Care Provided Minutes Spent on Discharge: 15 Hospital Course: 74 year old male with below past medical history hospitalized for intractable low back pain, failure to thrive, fall, admitted to TCU with debility, here for rehabilitation, strengthening, prior to discharge home alone. 12/12/2024 Resident has chronic indwelling hancock catheter 2/2 urinary retention. Nursing staff noted hematuria, resident otherwise asymptomatic, Lovenox held. 12/12/2024 Later, resident developed fever, chills, urine became purulent, he appeared unwell. Discharge to [facility] ED 12/12/2024 for evaluation, possible admission to [facility]. Weight / BMI Weight Weight: 92.079 kg Body Mass Index (BMI) 28.4 ABG / Lab / Microbiology Data 12/06/24 05:22 12/06/24 05:22 D/C Instructions Discharge Diet: No restrictions Discharge Activity: Return to Normal Activity, May Shower and Use Walker Weight Bearing Status: Weight bearing as tolerated Call your doctor if you observe: Fever of 101 or Higher, Inability to urinate, Inability to have a bowel movement, Shortness of breath, Dizziness, Fainting spells, Swelling in the ankles, Chest pain and Uncontrolled pain DC O2, CPAP, BIPAP Needs Home O2 Discharge instructions: No Additional Instructions: Discharge to [facility] ED 12/12/2024 for evaluation, possible admission to [facility]. Meaningful Use Info Meaningful Use Meaningful Use Diagnoses (Choose all that apply): None applicable Ischemic Stroke Statin Dosing Therapy Reference: STATIN DOSE THERAPY REFERENCE: * Patients > 75 years receive moderate or high dose statin therapy. * Patients 75 years or YOUNGER should receive HIGH intensity statin dose unless contraindicated. You will be required to document reason for non-treatment if statin daily dose does not meet guidelines. HIGH DOSE STATIN THERAPY DAILY Atorvastatin > than or = to 40 mg Rosuvastatin > than or = to 20 mg Amlodipine + Atorvastatin > than or = to 2.5/40 mg Ezetimibe + Simvastatin 10/80 mg Simvastatin 80mg Discharge Plan Admission Admit Date/Time: 12/05/24 15:21 Primary Reason for Your Visit: Debility. Attending Provider: Nhan White Chi Primary Care Provider: Corrie Marinelli Instructions Additional Instructions / Restrictions: Discharge to [facility] ED 12/12/2024 for evaluation, possible admission to [facility]. Discharge Orders/Prescriptions Prescriptions: No Action tamsulosin 0.4 mg capsule 0.4 mg PO QHS potassium chloride 20 mEq Tablet,Er Particles/Crystals 20 meq PO DAILYCM 30 Days Qty: 30 0RF ferrous sulfate 324 mg (65 mg iron) tablet,delayed release (DR/EC) 324 mg PO DAILY lidocaine 5 % Adhesive Patch,Medicated 2 patch topical DAILY Protocol: *Topical Application Instructions APPLICATION INSTRUCTIONS: Lumbar back Rx Instructions: Lumbar back trazodone 100 mg tablet 100 mg PO QHS acetaminophen 325 mg Tablet 650 mg PO Q4H PRN PRN (Reason: Fever, pain 1-10) Qty: 0 0RF meclizine 12.5 mg Tablet 12.5 mg PO TID PRN PRN (Reason: Dizziness) Qty: 0 0RF gabapentin 300 mg Capsule 900 mg PO TID Qty: 0 0RF oxycodone 5 mg Tablet 5 mg PO Q4H PRN PRN (Reason: Pain Score 4-10) 3 Days Qty: 10 0RF tizanidine 2 mg Tablet 2 mg PO Q8H PRN PRN (Reason: muscle strain/spasms) Qty: 0 0RF tolterodine 4 mg Capsule,Extended Release 24hr 4 mg PO DAILY Qty: 0 0RF sennosides-docusate sodium [Stimulant Laxative Plus] 8.6-50 mg Tablet 2 tab PO BID PRN PRN (Reason: Constipation) Qty: 1 0RF amlodipine 5 mg tablet 5 mg PO DAILY Qty: 1 0RF Referrals / Follow Up: Corrie Marinelli, PROJECT MANAGEMENT PROFESSOR [Primary Care Provider] - Disposition Disposition (needs filled in before D/C Order can be placed): Acute [facility]
--- NOTE | 2024-12-18 10:55 | MDS.RN ---
Information for the MDS was obtained from review of the clinical record, interview of resident, staff, and direct observation of resident?s care.
== END 2024-12-12 22:19 | disposition short-term general hospital (02) | DRG 552 ==
PROVIDERS: Admitting Provider Family Medicine Geriatric Medicine; PCP Clinical Nurse Specialist Adult Health; Visit Provider Family Medicine Geriatric Medicine
DX: M54.50 Low back pain, unspecified (principal); B35.4 Tinea corporis; D50.9 Iron deficiency anemia, unspecified; G62.9 Polyneuropathy, unspecified; E87.6 Hypokalemia; I10 Essential (primary) hypertension; H81.10 Benign paroxysmal vertigo, unspecified ear; K21.9 Gastro-esophageal reflux disease without esophagitis; M62.838 Other muscle spasm; G47.00 Insomnia, unspecified; N40.1 Benign prostatic hyperplasia with lower urinary tract symptoms; Z87.891 Personal history of nicotine dependence; R33.8 Other retention of urine; Z79.899 Other long term (current) drug therapy; N32.89 Other specified disorders of bladder
CPT/HCPCS: 36415; 80048; 85025; 92507; 92523; 92526; 92610; 97110; 97116; 97162; 97166; 97530; 97535; 97802

== ENCOUNTER 2024-12-12 17:58 | Inpatient (IN) | payer MEDICARE, SELFPAY ==
[2024-12-12 18:00] VITALS: BP 170/103; PULSE 108; RESP 25; TEMP 36.8; O2SAT 95; BMI 29.0
[2024-12-12] MEDS: 0.9% Normal Saline (1000mL) 1,000 ML 1000 ML IV (18:59)
[2024-12-12] MEDS: Ondansetron 4 MG/2 ML Vial IV (18:59)
[2024-12-12 19:21] LABS: Absolute Lymphocyte Count 1.53 X10^3/uL (0.83-4.51); Absolute Neutrophil Count 13.9 X10^3/uL (2.0-7.7); Basophil# 0.11 X10^3/uL; Basophil% 0.7 % (0-1); Eosinophil# 0.37 X10^3/uL; Eosinophils% 2.3 % (0-5); Hematocrit 44.6 % (40-54); Hemoglobin 14.3 g/dL (13.0-16.5); Lymphocyte # 1.53 X10^3/ul (0.83-4.51); Lymphocyte % 9.4 % (19-41); Mean Corp Hgb Conc 32.1 g/dL (32-36); Mean Corpuscular Hgb 29.9 pg (27.0-32.0); Mean Corpuscular Volume 93.3 fL (80-94); Mean Platelet Vol. 9.8 fl (6.2-12.0); Monocyte# 0.28 X10^3/uL; Monocyte% 1.7 % (0-10); NRBC Flagged by Analyzer 0 % (0-5); Neutrophil # 13.87 X10^3/uL (2.7-7.7); Neutrophil % 85.3 % (47-70); Platelet Count 286 K/mm3 (150-450); RBC Distribution Width CV 15.9 % (11.6-14.6); RBC Distribution Width SD 54.3 fl (35.1-43.9); Red Blood Count 4.78 M/mm3 (4.6-6.2); White Blood Count 16.3 K/mm3 (4.4-11.0)
[2024-12-12 19:28] LABS: International Normalized Ratio 1.1; Prothrombin Time (Protime)PT. 14.2 SECONDS (11.7-14.9)
[2024-12-12 19:30] LABS: Partial Thromboplast Time 28.3 Seconds (24.1-36.2)
[2024-12-12 19:53] LABS: Squamous Epithelial Cells - UA 0 SEEN /hpf (0-5)
[2024-12-12 19:55] LABS: Color, Urine Amber (Yellow); Glucose, Dipstick Normal (Normal); Ketone-Dipstick Negative (Negative); Leukocyte Esterase-Dipstick 500 /ul (Negative); Nitrite-Dipstick Positive (Negative); Occult Blood-Urine 250 /ul (Negative); Protein-Dipstick 100 mg/dl (Negative); Urine Bilirubin Dipstick Negative (Negative); Urine Clarity Cloudy (Clear); Urine Urobilinogen Normal (Normal)
[2024-12-12 20:00] VITALS: BP 145/84; PULSE 100; RESP 29; O2SAT 95
[2024-12-12 20:11] LABS: AST(SGOT) 11 U/L (15-37); Alanine Aminotransfer ALT/SGPT 16 U/L (16-61); Albumin, Serum 3.1 g/dL (3.2-5.0); Alkaline Phosphatase 64 U/L (45-117); Anion Gap 9 (5-15); BUN 28 mg/dL (7-18); BUN/Creat Ratio 19.6 RATIO (10-20); Bilirubin, Direct 0.06 mg/dL (0.00-0.30); Calcium,Total 9.4 mg/dL (8.5-10.1); Chloride 103 mmol/L (98-107); Creatinine, Serum 1.43 mg/dL (0.70-1.30); EST Glomerular Filtration Rate 51 mL/min (>60); Est Glom Filt Rate - Afr Amer 62 mL/min (>60); Estimated Creatinine Clearance 52.39 ml/min; Globulin 4.1 g/dL (2.2-4.2); Glucose 100 mg/dL (74-106); Lipase 19 U/L (13-75); Potassium 4.2 mmol/L (3.5-5.1); Protein, Total 7.2 g/dL (6.4-8.2); Sodium Level 136 mmol/L (136-145)
--- NOTE | 2024-12-12 20:16 | EX.ED.DYSGE1 ---
HPI History of Present Illness Chief Complaint: Nausea/Vomiting Informant: patient and SNF (TCU) Narrative Narrative: 74-year-old male chronic indwelling Dowling due to neurogenic bladder was recently admitted to the hospital with intractable back pain and transferred to the TCU for debility and inability care for self. The patient noted today to have vomiting and nausea feeling extremely lightheaded/dizzy and also having blood in his urine. Recent several months of urine cultures have consistently grown out Proteus. He is not currently on an antibiotic according to his MAR. He has been receiving Lovenox injections. No reported fevers. No diarrhea. He notes a generalized abdominal pain [facility] Medical History Chest pain Vision loss of right eye Anxiety Depression GERD (gastroesophageal reflux disease) Hypertension Right femoral fracture History of fractured rib (08/12/20) Anxiety Essential (primary) hypertension Hepatitis A Osteoarthritis Home Medications ?Medication ?Instructions ?Recorded ?Last Taken ?Type tamsulosin 0.4 mg capsule 0.4 mg PO QHS PROSTATE 03/11/23 12/04/24 History potassium chloride 20 mEq 20 meq PO DAILYCM supplement 30 03/07/24 12/05/24 Rx tablet,extended release(part/cryst) days #30 tabs ferrous sulfate 324 mg (65 mg 324 mg PO DAILY supplement 09/12/24 12/05/24 History iron) tablet,delayed release trazodone 100 mg tablet 100 mg PO QHS sleep 11/30/24 12/04/24 History acetaminophen 325 mg tablet 650 mg (2 x 325 mg) PO Q4H PRN PRN 12/05/24 12/05/24 Rx Fever, pain 1-08/31 #0 tabs amlodipine 5 mg tablet 5 mg PO DAILY BP #1 TAB 12/05/24 Unknown Rx gabapentin 300 mg capsule 900 mg (3 x 300 mg) PO TID Nerve 12/05/24 12/05/24 Rx pain #0 caps lidocaine 5 % topical patch 2 patch topical DAILY pain 12/05/24 12/05/24 History meclizine 12.5 mg tablet 12.5 mg PO TID PRN PRN Dizziness 12/05/24 12/03/24 Rx #0 tabs oxycodone 5 mg tablet 5 mg PO Q4H PRN PRN Pain Score 12/05/24 12/05/24 Rx 4-10 3 days #10 tabs sennosides 8.6 mg-docusate sodium 2 tab PO BID PRN PRN Constipation 12/05/24 Unknown Rx 50 mg tablet (Stimulant Laxative #1 TAB Plus) tizanidine 2 mg tablet 2 mg PO Q8H PRN PRN muscle 12/05/24 12/04/24 Rx strain/spasms #0 tabs tolterodine 4 mg capsule,extended 4 mg PO DAILY Overactive bladder 12/05/24 12/05/24 Rx release 24 hr #0 caps Allergy/AdvReac Type Severity Reaction Status Date / Time diltiazem (From Cardizem) AdvReac unknown Verified 12/12/24 18:00 losartan (From Hyzaar) AdvReac unknown Verified 12/12/24 18:00 metoprolol (From Lopressor) AdvReac unknown Verified 12/12/24 18:00 valsartan (From Diovan) AdvReac unknown Verified 12/12/24 18:00 Family History Mother Heart disease Cancer breast Sister Heart disease Father , in a train accident. No problems noted. Surgical History History of lumbar laminectomy for spinal cord decompression History of shoulder surgery History of elbow surgery History of hip replacement Social History household members: none Smoking Status: Former smoker quit date: 11/22/92 pack-years: 46 alcohol intake: former year quit: 1991 substance use type: does not use ROS ROS ED Constitutional Constitutional ED: Reports chills; Denies weight loss Eyes Eyes: Denies change in vision or diplopia ENT ENT ED: Denies ear pain, rhinorrhea or sore throat Cardiovascular Cardiovascular: Denies chest pain, orthopnea, palpitations or racing heartbeat Respiratory/Chest Respiratory/Chest: Denies cough, dyspnea or orthopnea Gastrointestinal Gastrointestinal: Reports abdominal pain, nausea and vomiting; Denies diarrhea Genitourinary Genitourinary ED: Reports hematuria and other Details: Chronic indwelling Dowling ; Denies dysuria or urinary frequency Musculoskeletal Musculoskeletal: Reports back pain; Denies arthralgias or myalgias Integumentary Denies abscess or rash Neurologic Neurologic: Denies headache(s) or weakness Psychiatric Psychiatric: Denies anxiety, depression, suicidal ideation or suicidal thoughts Endocrine Endocrinology: Denies polydipsia, polyphagia or polyuria Allergic/Immunologic Allergic/Immunologic ED: Denies mouth swelling, tongue swelling or urticaria EXAM Physical Exam Narrative Exam Narrative: Patient appears very weak and lightheaded Const Vital Signs: 12/12/24 18:00 12/12/24 20:00 Temperature 98.2 F Temperature Source Oral Pulse Rate 108 H 100 Respiratory Rate 25 H 29 H Blood Pressure 170/103 H 145/84 H Blood Pressure Mean 125 104 Pulse Ox 95 95 Oxygen Delivery Method Room Air Room Air Positive well nourished and well developed General Appearance ED: well developed HEENT Reports normocephalic, head/scalp atraumatic and moist mucous membranes Eyes PERRL and EOMs intact bilaterally Neck no lymphadenopathy, supple and no JVD Resp normal respiratory effort and clear to auscultation bilaterally Cardio regular rate, regular rhythm and no murmurs Rate: tachycardic GI Auscultation: normoactive bowel sounds Palpation: soft and tender other (Diffuse tenderness to palpation) Narrative: Dowling catheter is present with shows some pink urine that is cloudy and has some mild sediment Back/Spine no CVA tenderness and normal ROM Extremity normal to inspection General Extremety ED: Negative for edema General Extremity: Negative for edema Neuro oriented x3 and CN's II-XII intact bilaterally Sensorium / Orientation: alert Motor Exam: general weakness Psych mental status grossly normal Mood & Affect: Negative for depressed or tearful Skin no rashes or lesions noted and no wounds MDM MDM MDM Narrative Medical decision making narrative: Differential diagnosis includes but not limited to UTI hematuria anemia acute kidney injury electrolyte abnormality sepsis Patient's white count is elevated 16.3 with a hemoglobin of 14.3. Platelet count of 286. Normal coags. Creatinine 1.43 with a BUN of 28. Normal LFTs. Lactic acid is 1.9. Urinalysis is greater than 100 red cells positive nitrates positive leukocyte esterase 10-25 white cells 1+ bacteria blood and urine cultures were sent. Patient received IV fluids Zofran and cefepime. A CT of the abdomen pelvis was obtained. This was read by radiology and reviewed by myself. This demonstrates Dowling catheter in the bladder. There is hydronephrosis of the left kidney. There is contrast in the urinary collecting systems. Patient has grown out Proteus in the past several urine cultures but colony-forming units have been low. Last April he did have Pseudomonas with greater than 100,000 colony-forming units.. Based on that sensitivities we chose the cefepime. I will speak with the hospitalist regarding admission. History & Record Review Discussion w/independent historian: Patient Additional record(s) reviewed:: Prior inpatient record, Prior outpatient record, Prior ED visit and Prior labs Lab Data Attestation: I reviewed the patient's lab results. Labs: Laboratory Results - last 24 hr 12/12/24 12/12/24 19:11 19:44 WBC 16.3 H RBC 4.78 Hgb 14.3 Hct 44.6 MCV 93.3 MCH 29.9 MCHC 32.1 RDW Std Deviation 54.3 H RDW Coeff of Matthew 15.9 H Plt Count 286 MPV 9.8 Immature Gran % (Auto) 0.600 Neut % (Auto) 85.3 H Lymph % (Auto) 9.4 L Teller % (Auto) 1.7 Eos % (Auto) 2.3 Baso % (Auto) 0.7 Absolute Neuts (auto) 13.9 H Absolute Lymphs (auto) 1.53 Nucleated RBC % 0 PT 14.2 INR 1.1 APTT 28.3 Sodium 136 Potassium 4.2 Chloride 103 Carbon Dioxide 25.0 Anion Gap 9 BUN 28 H Creatinine 1.43 H Estim Creat Clear Calc 52.39 Est GFR (MDRD) Af Amer 62 Est GFR (MDRD) Non-Af 51 L BUN/Creatinine Ratio 19.6 Glucose 100 Lactic Acid 1.9 Calcium 9.4 Total Bilirubin 0.20 Direct Bilirubin 0.06 AST 11 L ALT 16 Alkaline Phosphatase 64 Total Protein 7.2 Albumin 3.1 L Globulin 4.1 Lipase 19 Urine Color Guerda Urine Clarity Cloudy Urine pH 8.0 Ur Specific [place] 1.010 Urine Protein 100 H Urine Glucose (UA) Normal Urine Ketones Negative Urine Occult Blood 250 H Urine Nitrite Positive H Urine Bilirubin Negative Urine Urobilinogen Normal Ur Leukocyte Esterase 500 H Urine RBC > 100 SEEN Urine WBC 10-25 SEEN Ur Squamous Epith Cells 0 SEEN Urine Bacteria 1+ Urine Mucus 1+ Radiography Diagnostic Testing: Clinical Impression(s) from Imaging Studies Abdomen/Pelvis CT 12/12/24 20:20 IMPRESSION: Left hydronephrosis. Colonic diverticulosis. No obstruction. Electronically Signed: Ramiro Welch MD at 21:41 EST , EKG Initial EKG: Attestation: I personally reviewed and interpreted this EKG as follows: Comments: Sinus tachycardia ventricular rate of 103 bpm Management Discussion w/another healthcare provider: Hospitalist (Dr Kline) Discharge Plan Dx/Rx/DC Orders Clinical Impression: Complicated urinary tract infection, Vomiting Disposition Disposition: Acute Care Hospital [facility]
--- NOTE | 2024-12-12 20:20 | CT_ITS ---
STUDY: CT ABDOMEN AND PELVIS WITH CONTRAST REASON FOR EXAM: Male, 74 years old. Abdominal pain vomiting leukocytosis RADIATION DOSAGE (If Supplied By Facility): CTDIvol = ( 14.42 ) mGy, DLP = ( 1247.82 ) mGycm TECHNIQUE: Transaxial images were obtained from the dome of the diaphragm to the symphysis pubis without oral contrast. IV 100mL Isovue-370 was administered. Sagittal and coronal images were reconstructed. Individualized dose optimization techniques were used for this CT. COMPARISON: September 28, 2023 FINDINGS: The visualized lung bases are unremarkable. There are coronary artery calcifications. There is hepatomegaly with diffuse hepatic enlargement. Normal gallbladder and extrahepatic biliary system. Normal spleen. Normal pancreas. There is a 2.5 cm left adrenal nodule. There is mild scarring of the right kidney. There is moderate hydronephrosis of the left kidney. There is contrast in the urinary collecting systems. Normal visualized stomach. Normal small intestine. There are multiple colonic diverticula consistent with diverticulosis. There is non-visualization of the appendix. There is diffuse atherosclerotic calcification of the abdominal aorta, without a demonstrated aneurysm. Normal inferior vena cava. Normal retroperitoneum. There is a Dowling catheter in the urinary bladder. There is no free fluid in the abdomen or pelvis. Normal abdominal wall. There is degenerative change of the spine and left hip. There is right hip replacement. CT/Abdomen/Pelvis W IV Cont ONLY IMPRESSION: Left hydronephrosis. Colonic diverticulosis. No obstruction. Electronically Signed: Ramiro Welch MD at 21:41 EST ,
[2024-12-12 20:22] LABS: Bacteria 1+ /hpf (None Seen); Mucous, Urine 1+ /hpf (<or=2+); Red Blood Cells-Urine > 100 SEEN /hpf (0-5); White Blood Cells 10-25 SEEN /hpf (0-5)
[2024-12-12 20:30] LABS: Lactic Acid 1.9 mmol/L (0.4-1.9)
--- NOTE | 2024-12-12 21:04 | EKG12_ITS ---
Test Reason : CP Blood Pressure : */* mmHG Vent. Rate : 103 BPM Atrial Rate : 103 BPM P-R Int : 166 ms QRS Dur : 92 ms QT Int : 330 ms P-R-T Axes : 14 -72 4 degrees QTcB Int : 432 ms Sinus tachycardia Left anterior fascicular block Cannot rule out Anterior infarct , age undetermined Abnormal ECG Confirmed by DAVIS CASTANON, BLOSSOM ([id number]), film and video editor MIRIAM POLLARD ([id number]) on 12/19/2024 6:52:20 AM Referred By: JAMIE Confirmed By: BLOSSOM CANNON MD
[2024-12-12 22:10] VITALS: BP 131/82; PULSE 88; RESP 26; TEMP 37; O2SAT 95
[2024-12-12 22:11] VITALS: BP 131/82; PULSE 88; RESP 26; TEMP 37; O2SAT 96
[2024-12-12] MEDS: Cefepime HCl 2 GM in 0.9% Normal Saline (100mL MB+) 100 ML IV (22:21)
--- NOTE | 2024-12-12 22:21 | PCM.HP.STD ---
HPI - General General Date of Admission: 12/12/24 Date of Service: 12/12/24 Chief Complaint: N/V HPI Narrative The patient is a 74 y/o M w/ PMHx: CKD stage II per GFR trending, Anxiety and Depression, HTN, HLD, Hx Hepatitis A, GERD, BPH with obstructive pathology w/ neurogenic bladder w/ chronic indwelling hancock catheter, Chronic anemia/Fe deficiency anemia, Former tobacco use, recent discharge to TCU 12/05/2024 following treatment and evaluation for intractable back pain, chronic lower extremity neuropathy as well as severe protein calorie malnutrition who now re-presents to the [facility] ED on 12/12/2024 with history of onset nausea and emesis with lightheadedness and dizziness in addition to chills but no fevers as well as blood in his urine for the last 2-3 days with the ED review of urine cultures noted for frequent Proteus growth prompting transition to the ED for evaluation. He also noted generalized abdominal discomfort but no severe or focal pain. Workup in the ED included T97.5 Temporally, heart rate 80, BP 123/79, respiratory rate 16, 93% on room air with most recent repeat vitals T98.6 Temporally, heart rate 100, BP 135/84, respiratory rate 29, 95% on room air, CBC with WBC 16.3, hemoglobin 14.3, platelet 286 with left shift, unremarkable coags, CMP with BUN/creatinine 28/1.43, GFR 51, lactic acid 1.9, hepatic profile unremarkable, urine kathleen/cloudy, specific gravity 1.010, protein 100, occult blood 250, positive nitrite, leukocyte esterase 500 with greater than 100 urine RBCs, urine WBCs 10-25 with only 1+ urine bacteria noted, urine culture pending per ED, CT abdomen and pelvis with a left-sided moderate hydronephrosis, colonic diverticulosis but no evidence of any obstruction. CT imaging was compared to previous and patient has intermittently demonstrated hydronephrosis prior. Discussed case with ED physician and given very mild symptoms plan for observation admission in order for patient to be able to return to skilled facility. Per review of previous cultures patient has also had in addition to Proteus, Pseudomonas. In the ED patient ministered 2 L normal saline, Zofran for Imodium IV x 1 and cefepime 2 g IV x 1. Also, hancock catheter changed in the ED. [facility] Medical History Chest pain Vision loss of right eye Anxiety Depression GERD (gastroesophageal reflux disease) Hypertension Right femoral fracture History of fractured rib (08/12/20) Anxiety Essential (primary) hypertension Hepatitis A Osteoarthritis Home Medications ?Medication ?Instructions ?Recorded ?Last Taken ?Type tamsulosin 0.4 mg capsule 0.4 mg PO QHS PROSTATE 03/11/23 12/04/24 History potassium chloride 20 mEq 20 meq PO DAILYCM supplement 30 03/07/24 12/05/24 Rx tablet,extended release(part/cryst) days #30 tabs ferrous sulfate 324 mg (65 mg 324 mg PO DAILY supplement 09/12/24 12/05/24 History iron) tablet,delayed release trazodone 100 mg tablet 100 mg PO QHS sleep 11/30/24 12/04/24 History acetaminophen 325 mg tablet 650 mg (2 x 325 mg) PO Q4H PRN PRN 12/05/24 12/05/24 Rx Fever, pain 1-08/31 #0 tabs amlodipine 5 mg tablet 5 mg PO DAILY BP #1 TAB 12/05/24 Unknown Rx gabapentin 300 mg capsule 900 mg (3 x 300 mg) PO TID Nerve 12/05/24 12/05/24 Rx pain #0 caps lidocaine 5 % topical patch 2 patch topical DAILY pain 12/05/24 12/05/24 History meclizine 12.5 mg tablet 12.5 mg PO TID PRN PRN Dizziness 12/05/24 12/03/24 Rx #0 tabs oxycodone 5 mg tablet 5 mg PO Q4H PRN PRN Pain Score 12/05/24 12/05/24 Rx 4-10 3 days #10 tabs sennosides 8.6 mg-docusate sodium 2 tab PO BID PRN PRN Constipation 12/05/24 Unknown Rx 50 mg tablet (Stimulant Laxative #1 TAB Plus) tizanidine 2 mg tablet 2 mg PO Q8H PRN PRN muscle 12/05/24 12/04/24 Rx strain/spasms #0 tabs tolterodine 4 mg capsule,extended 4 mg PO DAILY Overactive bladder 12/05/24 12/05/24 Rx release 24 hr #0 caps Allergy/AdvReac Type Severity Reaction Status Date / Time diltiazem (From Cardizem) AdvReac unknown Verified 12/12/24 18:00 losartan (From Hyzaar) AdvReac unknown Verified 12/12/24 18:00 metoprolol (From Lopressor) AdvReac unknown Verified 12/12/24 18:00 valsartan (From Diovan) AdvReac unknown Verified 12/12/24 18:00 Family History Mother Heart disease Cancer breast Sister Heart disease Father , in a train accident. No problems noted. Surgical History History of lumbar laminectomy for spinal cord decompression History of shoulder surgery History of elbow surgery History of hip replacement Social History household members: none Smoking Status: Former smoker quit date: 11/22/92 pack-years: 46 alcohol intake: former year quit: 1991 substance use type: does not use ROS ROS Narrative Admission Review of Systems: CONSTITUTIONAL: No weight loss, fever, chills, + weakness or fatigue. HEENT: + Chronic R eye vision loss. Eyes: No blurred vision, double vision or yellow sclerae. Ears, Nose, Throat: No hearing loss, sneezing, congestion, runny nose or sore throat. SKIN: No rash or itching, lesions, wounds except + occasional stage ecchymoses especially with recent fall. CARDIOVASCULAR: No chest pain, chest pressure or chest discomfort, palpitations, edema, orthopnea, syncopal events. RESPIRATORY: No shortness of breath, cough or sputum, wheezing, hemoptysis. GASTROINTESTINAL: + Anorexia, nausea, vomiting, vague generalized abdominal discomfort. No diarrhea, melena, BRBPR. GENITOURINARY: + BPH with obstructive pathology with neurogenic bladder with chronic indwelling Hancock catheter. NEUROLOGICAL: + Recent intractable lumbar back pain with radicular pain, improved, chronic neurogenic bladder with indwelling Hancock catheter. No headache, dizziness, syncope, paralysis, ataxia, change in bowel or bladder control, seizure. MUSCULOSKELETAL: + muscle, back pain, joint pain or stiffness. HEMATOLOGIC: + Hx iron deficiency anemia. No marked easy history of bleeding or bruising. LYMPHATICS: No enlarged nodes. No history of splenectomy. PSYCHIATRIC: + Hx anxiety and depression. ENDOCRINOLOGIC: No reports of sweating, cold or heat intolerance. No polyuria or polydipsia. ALLERGIES: No history of asthma, hives, eczema or rhinitis. Vital Signs Vital Signs Vital Signs: 12/12/24 18:00 12/12/24 20:00 12/12/24 22:10 Temperature 98.2 F 98.6 F Temperature Source Oral Pulse Rate 108 H 100 88 Respiratory Rate 25 H 29 H 26 H Blood Pressure 170/103 H 145/84 H 131/82 H Blood Pressure Mean 125 104 98 Pulse Ox 95 95 95 Oxygen Delivery Method Room Air Room Air 12/12/24 22:11 Temperature 98.6 F Temperature Source Oral Pulse Rate 88 Respiratory Rate 26 H Blood Pressure 131/82 H Blood Pressure Mean 98 Pulse Ox 96 Oxygen Delivery Method Room Air Weight Weight: 208 lb 5.389 oz Body Mass Index (BMI) 29.0 Physical Exam Narrative Physical Examination: General: Awake, alert, oriented x 3 and cooperative, laying in the ED bed, fatigued, denies any complaints at this time, notes back pain markedly improved since his previous evaluation inpatient. Skin: Normal color, normal turgor, no icterus, no cyanosis except occasional staged ecchymoses, abrasions HEENT: AT/NC, EOMI, PERRLA, moderately dry MM, no carotid bruits or JVD noted. Lungs: Mildly diminished, greater bases, appropriate effort, no rales, ronchi or wheezing. Heart: Regular rate and rhythm; no gallop, rub audible. Abdomen: Soft, NTTP despite complaints in the ED of abdominal discomfort, no rebound or guarding, no flank discomfort, ND, normal BS, no appreciated HSM, chronic indwelling Hancock catheter in place with red-tinged urine. Extremities: No cyanosis, no clubbing, no marked distal peripheral edema. Neurological: Patient awake, alert, oriented as noted, cognitive function appears baseline intact; pupils equally reactive to light and accommodation, cranial nerves gross normal, moving all 4 extremities, no focal deficits, strength moderately to severely globally decreased. Psychiatric: Affect fatigued otherwise normal, no acute evidence of depressive or anxiety feelings but does have underlying history. Results Lab / Micro Data 12/12/24 19:11 12/12/24 19:11 Labs: Laboratory Results - last 24 hr 12/12/24 19:11: WBC 16.3 H, RBC 4.78, Hgb 14.3, Hct 44.6, MCV 93.3, MCH 29.9, MCHC 32.1, RDW Std Deviation 54.3 H, RDW Coeff of Matthew 15.9 H, Plt Count 286, MPV 9.8, Immature Gran % (Auto) 0.600, Neut % (Auto) 85.3 H, Lymph % (Auto) 9.4 L, [place] % (Auto) 1.7, Eos % (Auto) 2.3, Baso % (Auto) 0.7, Absolute Neuts (auto) 13.9 H, Absolute Lymphs (auto) 1.53, Nucleated RBC % 0, PT 14.2, INR 1.1, APTT 28.3, Sodium 136, Potassium 4.2, Chloride 103, Carbon Dioxide 25.0, Anion Gap 9, BUN 28 H, Creatinine 1.43 H, Estim Creat Clear Calc 52.39, Est GFR (MDRD) Af Amer 62, Est GFR (MDRD) Non-Af 51 L, BUN/Creatinine Ratio 19.6, Glucose 100, Lactic Acid 1.9, Calcium 9.4, Total Bilirubin 0.20, Direct Bilirubin 0.06, AST 11 L, ALT 16, Alkaline Phosphatase 64, Total Protein 7.2, Albumin 3.1 L, Globulin 4.1, Lipase 19 12/12/24 19:44: Urine Color Kathleen, Urine Clarity Cloudy, Urine pH 8.0, Ur Specific [place] 1.010, Urine Protein 100 H, Urine Glucose (UA) Normal, Urine Ketones Negative, Urine Occult Blood 250 H, Urine Nitrite Positive H, Urine Bilirubin Negative, Urine Urobilinogen Normal, Ur Leukocyte Esterase 500 H, Urine RBC > 100 SEEN, Urine WBC 10-25 SEEN, Ur Squamous Epith Cells 0 SEEN, Urine Bacteria 1+, Urine Mucus 1+ Imaging Radiology Impression Abdomen/Pelvis CT 12/12/24 20:20 IMPRESSION: Left hydronephrosis. Colonic diverticulosis. No obstruction. Electronically Signed: Ramiro Welch MD at 21:41 EST , Assessment & Plan Assessment/Plan (1) Complicated urinary tract infection: PLAN: Plan The patient is a 74 y/o M w/ PMHx: CKD stage II per GFR trending, Anxiety and Depression, HTN, HLD, Hx Hepatitis A, GERD, BPH with obstructive pathology w/ neurogenic bladder w/ chronic indwelling hancock catheter, Chronic anemia/Fe deficiency anemia, Former tobacco use, recent discharge to TCU 12/05/2024 following treatment and evaluation for intractable back pain, chronic lower extremity neuropathy as well as severe protein calorie malnutrition who now re-presents to the [facility] ED on 12/12/2024 with history of onset nausea and emesis with lightheadedness and dizziness in addition to chills but no fevers as well as blood in his urine for the last 2-3 days with the ED review of urine cultures noted for frequent Proteus growth prompting transition to the ED for evaluation. #1. Acute Complicated Urinary Tract Infection secondary to chronic indwelling Hancock catheter secondary to BPH with obstructive pathology with neurogenic bladder with moderate left-sided hydronephrosis: Will admit to [facility] upon ED evaluation remarkable, pending UCx, will judiciously hydrate as noted, monitor I/Os, continue IV cefepime based on previous cultures to be cautious w/ transition as able pending sensitivities and speciation. Bld cx x 2 obtained in the ED. Hancock catheter changed in the ED prior to admission to the floor. From review of previous imaging patient has intermittently had hydronephrosis noted, no obvious obstruction currently as Hancock catheter is draining however will continue to closely monitor and if appropriate low threshold to involve urology. #2. Acutely elevated Creatinine/Acute Renal Insufficiency on Chronic Kidney Disease Stage II per GFR trending although has vacillated: Admission BUN/Cr 28/1.43, GFR 51, baseline renal function primarily 0.9-1.2, most recently prior 12/06/2024 creatinine 1.01, likely related with his acute presentation, continue judicious hydration, repeat BMP in AM. #3. Recent intractable lumbar back pain, improved with underlying paresthesias: Will continue as needed low-dose tizanidine with hold as needed for sedation, lidocaine patches, low-dose oral pain regimen and gabapentin, encourage offloading, fall precautions, continue therapy and case management consultation. Would plan to return to TCU once clinically appropriate. #4. BPH with obstructive pathology with neurogenic bladder with chronic indwelling Hancock catheter, contributes to presentation as noted: Will maintain patient on Flomax regimen, continue to monitor I's and O's. #5. Chronic iron deficiency anemia: Admission hemoglobin 14.3, MCV 93.3, baseline recently 13-14 but more remotely had been down 10-11 range, will continue iron supplementation, continue to trend CBC. #6. Hypertension: Continue home regimen including amlodipine, PRN hydralazine. #7. Former tobacco use: Encourage continued tobacco cessation. #8. GERD: Per current list is not on any chronic regimen, will have as needed Mylanta regimen. #9. Anxiety and depression: Noted in history, not on any regimen, encourage continued outpatient follow-up and evaluation with PCP as previously arranged. #10. DVT prophylaxis: SCDs, defer chemoprophylaxis given recent hematuria with UTIs noted. #11. 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 Full Code status. Charges/Coding Visit Charges Inpatient E&M: 47341 Init Hosp L3
[2024-12-12] MEDS: 0.9% Normal Saline (1000mL) 1,000 ML 200 ML IV (22:22)
[2024-12-12 23:07] VITALS: BP 123/81; PULSE 91; RESP 18; TEMP 36.9; O2SAT 94
[2024-12-12 23:43] VITALS: BMI 28.6
[2024-12-13] MEDS: oxyCODONE 5 MG Tablet PO ×4 (00:06→23:17)
[2024-12-13 03:46] VITALS: BMI 28.6
[2024-12-13] MEDS: 0.9% Normal Saline (1000mL) 1,000 ML 100 ML IV (04:13)
[2024-12-13 04:14] VITALS: BP 118/81; PULSE 89; RESP 18; TEMP 37.1; O2SAT 93
[2024-12-13 06:14] LABS: Absolute Neutrophil Count 17.4 X10^3/uL (2.0-7.7); Basophil# 0.09 X10^3/uL; Basophil% 0.4 % (0-1); Eosinophil# 0.09 X10^3/uL; Eosinophils% 0.4 % (0-5); Hematocrit 37.5 % (40-54); Hemoglobin 12.1 g/dL (13.0-16.5); Lymphocyte % 5.9 % (19-41); Mean Corp Hgb Conc 32.3 g/dL (32-36); Mean Corpuscular Hgb 29.7 pg (27.0-32.0); Mean Corpuscular Volume 91.9 fL (80-94); Mean Platelet Vol. 9.6 fl (6.2-12.0); Monocyte# 1.47 X10^3/uL; Monocyte% 7.2 % (0-10); NRBC Flagged by Analyzer 0 % (0-5); Neutrophil # 17.37 X10^3/uL (2.7-7.7); Neutrophil % 85.7 % (47-70); Platelet Count 254 K/mm3 (150-450); RBC Distribution Width CV 16.2 % (11.6-14.6); Red Blood Count 4.08 M/mm3 (4.6-6.2); White Blood Count 20.3 K/mm3 (4.4-11.0)
[2024-12-13] MEDS: Gabapentin 300 MG Capsule 900 MG PO ×3 (06:41→23:07)
[2024-12-13 06:55] LABS: ALB/GLOB Ratio 0.7 RATIO (0.9-2.4); AST(SGOT) 11 U/L (15-37); Alanine Aminotransfer ALT/SGPT 11 U/L (16-61); Albumin, Serum 2.4 g/dL (3.2-5.0); Alkaline Phosphatase 49 U/L (45-117); Anion Gap 6 (5-15); BUN 28 mg/dL (7-18); Calcium,Total 8.4 mg/dL (8.5-10.1); Chloride 104 mmol/L (98-107); Creatinine, Serum 1.47 mg/dL (0.70-1.30); EST Glomerular Filtration Rate 50 mL/min (>60); Est Glom Filt Rate - Afr Amer 60 mL/min (>60); Globulin 3.5 g/dL (2.2-4.2); Glucose 137 mg/dL (74-106); Potassium 4.6 mmol/L (3.5-5.1); Protein, Total 5.9 g/dL (6.4-8.2); Sodium Level 135 mmol/L (136-145)
--- NOTE | 2024-12-13 08:53 | PCM.PN.HOSP ---
Reason for Visit Reason for Visit: Diagnoses Urinary tract infection, site not specified (12/12/24) Subjective Subjective Feeling ok. Objective Data Objective Data Vital Signs: Vital Signs Temp Pulse Resp BP Pulse Ox O2 Del Method 37.1 C 89 18 118/81 H 93 Room Air 12/13/24 04:14 12/13/24 04:14 12/13/24 04:14 12/13/24 04:14 12/13/24 04:14 12/13/24 08:39 Oxygen Delivery Method Room Air Weight: 92.8 kg Body Mass Index (BMI) 28.6 Intake & Output: Intake and Output for Last 24 Hours 12/11/24 12/12/24 12/13/24 23:59 23:59 23:59 Intake Total 1100 / 1100 1700 / 1700 Output Total 1200 / 1200 Balance 1100 / 1100 500 / 500 Lab / Micro Data 12/13/24 05:14 12/13/24 05:14 Labs: Laboratory Results - last 24 hr 12/12/24 19:11: WBC 16.3 H, RBC 4.78, Hgb 14.3, Hct 44.6, MCV 93.3, MCH 29.9, MCHC 32.1, RDW Std Deviation 54.3 H, RDW Coeff of Matthew 15.9 H, Plt Count 286, MPV 9.8, Immature Gran % (Auto) 0.600, Neut % (Auto) 85.3 H, Lymph % (Auto) 9.4 L, Price % (Auto) 1.7, Eos % (Auto) 2.3, Baso % (Auto) 0.7, Absolute Neuts (auto) 13.9 H, Absolute Lymphs (auto) 1.53, Nucleated RBC % 0, PT 14.2, INR 1.1, APTT 28.3, Sodium 136, Potassium 4.2, Chloride 103, Carbon Dioxide 25.0, Anion Gap 9, BUN 28 H, Creatinine 1.43 H, Estim Creat Clear Calc 52.39, Est GFR (MDRD) Af Amer 62, Est GFR (MDRD) Non-Af 51 L, BUN/Creatinine Ratio 19.6, Glucose 100, Lactic Acid 1.9, Calcium 9.4, Total Bilirubin 0.20, Direct Bilirubin 0.06, AST 11 L, ALT 16, Alkaline Phosphatase 64, Total Protein 7.2, Albumin 3.1 L, Globulin 4.1, Lipase 19 12/12/24 19:44: Urine Color Kathleen, Urine Clarity Cloudy, Urine pH 8.0, Ur Specific [place] 1.010, Urine Protein 100 H, Urine Glucose (UA) Normal, Urine Ketones Negative, Urine Occult Blood 250 H, Urine Nitrite Positive H, Urine Bilirubin Negative, Urine Urobilinogen Normal, Ur Leukocyte Esterase 500 H, Urine RBC > 100 SEEN, Urine WBC 10-25 SEEN, Ur Squamous Epith Cells 0 SEEN, Urine Bacteria 1+, Urine Mucus 1+ 12/13/24 05:14: WBC 20.3 H, RBC 4.08 L, Hgb 12.1 L, Hct 37.5 L, MCV 91.9, MCH 29.7, MCHC 32.3, RDW Std Deviation 55.0 H, RDW Coeff of Matthew 16.2 H, Plt Count 254, MPV 9.6, Immature Gran % (Auto) 0.400, Neut % (Auto) 85.7 H, Lymph % (Auto) 5.9 L, Price % (Auto) 7.2, Eos % (Auto) 0.4, Baso % (Auto) 0.4, Absolute Neuts (auto) 17.4 H, Absolute Lymphs (auto) 1.20, Nucleated RBC % 0, Sodium 135 L, Potassium 4.6, Chloride 104, Carbon Dioxide 25.0, Anion Gap 6, BUN 28 H, Creatinine 1.47 H, Estim Creat Clear Calc 49.70, Est GFR (MDRD) Af Amer 60, Est GFR (MDRD) Non-Af 50 L, BUN/Creatinine Ratio 19.0, Glucose 137 H, Calcium 8.4 L, Total Bilirubin 0.40, AST 11 L, ALT 11 L, Alkaline Phosphatase 49, Total Protein 5.9 L, Albumin 2.4 L, Globulin 3.5, Albumin/Globulin Ratio 0.7 L Radiography Diagnostic Testing: Radiology Impression Abdomen/Pelvis CT 12/12/24 20:20 IMPRESSION: Left hydronephrosis. Colonic diverticulosis. No obstruction. Electronically Signed: Ramiro Welch MD at 21:41 EST , Physical Exam Const alert and no apparent distress Constitutional Narrative: urine dark kathleen. HEENT head/scalp atraumatic and moist oral mucous membranes Resp normal respiratory effort, no retractions, no use of accessory muscles and clear to auscultation bilaterally Cardio regular rate, regular rhythm, S1 normal heart sound and S2 normal heart sound GI normal to inspection, nondistended, normoactive bowel sounds, soft to palpation, non-tender and non-distended Extremity normal to inspection and full ROM Assessment & Plan Assessment/Plan (1) Complicated urinary tract infection: PLAN: Plan Acute Complicated Urinary Tract Infection secondary to chronic indwelling Dowling catheter secondary to BPH with obstructive pathology with neurogenic bladder with moderate left-sided hydronephrosis: Dowling catheter changed in the ED prior to admission to the floor. On cefepime. UCx showing Proteus sp., sensitivities pending. Bacteremia gram negative. Suspect Proteus, will await final indentification. Chronic conditions: Recent intractable lumbar back pain, improved with underlying paresthesias: Will continue as needed low-dose tizanidine with hold as needed for sedation, lidocaine patches, low-dose oral pain regimen and gabapentin, encourage offloading, fall precautions, continue therapy and case management consultation. Would plan to return to TCU once clinically appropriate. BPH with obstructive pathology with neurogenic bladder with chronic indwelling Dowling catheter, contributes to presentation as noted: Will maintain patient on Flomax regimen, continue to monitor I's and O's. Chronic iron deficiency anemia: Admission hemoglobin 14.3, MCV 93.3, baseline recently 13-14 but more remotely had been down 10-11 range, will continue iron supplementation, continue to trend CBC. Hypertension: Continue home regimen including amlodipine, PRN hydralazine. Former tobacco use: Encourage continued tobacco cessation. GERD: Per current list is not on any chronic regimen, will have as needed Mylanta regimen. Anxiety and depression: Noted in history, not on any regimen, encourage continued outpatient follow-up and evaluation with PCP as previously arranged. DVT prophylaxis: SCDs, defer chemoprophylaxis given recent hematuria with UTIs noted. Charges/Coding Visit Charges Inpatient E&M: 52633 Subs Hosp L2
[2024-12-13 10:15] VITALS: BP 117/64; PULSE 62; RESP 18; TEMP 36.6; O2SAT 92
--- NOTE | 2024-12-13 10:50 | CASEMGMT ---
Patient came from [facility]. SW met with patient and confirmed his plan is to return to TCU at discharge. Plan: d/c to [facility] when medically ready. Nayeli REGAN
[2024-12-13] MEDS: Cefepime HCl 2 GM in 0.9% Normal Saline (100mL MB+) 100 ML IV ×2 (10:55→23:06)
[2024-12-13] MEDS: Potassium Chloride Oral Tablet 20 MEQ PO (11:03)
[2024-12-13] MEDS: amLODIPine 5 MG Tablet PO (11:04)
[2024-12-13] MEDS: Tolterodine Tartrate 4 MG CAP.SA PO (11:04)
[2024-12-13] MEDS: Ferrous Sulfate 325 MG Tablet PO (11:04)
[2024-12-13] MEDS: Lidocaine 5% Patch 2 PATCH TOPICAL (11:04)
[2024-12-13] MEDS: Acetaminophen 325 MG Tablet 650 MG PO ×2 (14:41→23:07)
[2024-12-13 16:15] VITALS: BP 103/87; PULSE 80; RESP 18; TEMP 37.1; O2SAT 94
[2024-12-13 22:49] VITALS: BP 123/75; PULSE 82; RESP 19; TEMP 36.8; O2SAT 96
[2024-12-13] MEDS: Tamsulosin HCl 0.4 MG Capsule PO (22:52)
[2024-12-13] MEDS: traZODone 100 MG Tablet PO (22:52)
[2024-12-13] MEDS: 0.9% Saline Lock 10 ML Syringe IV (23:05)
[2024-12-14] MEDS: 0.9% Saline Lock 10 ML Syringe IV ×3 (00:10→11:32)
[2024-12-14 05:20] VITALS: BMI 29.0
[2024-12-14 05:29] VITALS: BP 110/73; PULSE 72; RESP 18; TEMP 37.2; O2SAT 96
[2024-12-14] MEDS: Gabapentin 300 MG Capsule 900 MG PO ×3 (05:35→22:19)
[2024-12-14 05:53] LABS: Absolute Lymphocyte Count 0.93 X10^3/uL (0.83-4.51); Absolute Neutrophil Count 10.3 X10^3/uL (2.0-7.7); Basophil# 0.09 X10^3/uL; Basophil% 0.7 % (0-1); Eosinophil# 0.22 X10^3/uL; Eosinophils% 1.7 % (0-5); Hematocrit 34.7 % (40-54); Hemoglobin 11.4 g/dL (13.0-16.5); Lymphocyte # 0.93 X10^3/ul (0.83-4.51); Lymphocyte % 7.2 % (19-41); Mean Corp Hgb Conc 32.9 g/dL (32-36); Mean Corpuscular Hgb 30.1 pg (27.0-32.0); Mean Corpuscular Volume 91.6 fL (80-94); Mean Platelet Vol. 9.2 fl (6.2-12.0); Monocyte# 1.22 X10^3/uL; Monocyte% 9.5 % (0-10); NRBC Flagged by Analyzer 0 % (0-5); Neutrophil # 10.31 X10^3/uL (2.7-7.7); Neutrophil % 80.2 % (47-70); Platelet Count 222 K/mm3 (150-450); RBC Distribution Width CV 16.1 % (11.6-14.6); RBC Distribution Width SD 54.4 fl (35.1-43.9); Red Blood Count 3.79 M/mm3 (4.6-6.2); White Blood Count 12.9 K/mm3 (4.4-11.0)
[2024-12-14 06:51] LABS: Anion Gap 7 (5-15); BUN 24 mg/dL (7-18); BUN/Creat Ratio 19.7 RATIO (10-20); Calcium,Total 8.5 mg/dL (8.5-10.1); Chloride 107 mmol/L (98-107); Creatinine, Serum 1.22 mg/dL (0.70-1.30); EST Glomerular Filtration Rate 62 mL/min (>60); Est Glom Filt Rate - Afr Amer 74 mL/min (>60); Estimated Creatinine Clearance 60.23 ml/min; Glucose 112 mg/dL (74-106); Potassium 3.9 mmol/L (3.5-5.1); Sodium Level 136 mmol/L (136-145)
[2024-12-14 08:07] VITALS: O2SAT 91
--- NOTE | 2024-12-14 08:56 | PCM.PN.HOSP ---
Reason for Visit Reason for Visit: Diagnoses Urinary tract infection, site not specified (12/13/24) Subjective Subjective Feels well. No new complaints. Objective Data Objective Data Vital Signs: Vital Signs Temp Pulse Resp BP Pulse Ox O2 Del Method 37.2 C 72 18 110/73 96 Room Air 12/14/24 05:29 12/14/24 05:29 12/14/24 05:29 12/14/24 05:29 12/14/24 05:29 12/14/24 05:30 Oxygen Delivery Method Room Air Weight: 94 kg Body Mass Index (BMI) 29.0 Intake & Output: Intake and Output for Last 24 Hours 12/12/24 12/13/24 12/14/24 23:59 23:59 23:59 Intake Total 1100 / 1100 4060 / 4060 100 / 100 Output Total 2875 / 2875 Balance 1100 / 1100 1185 / 1185 100 / 100 Lab / Micro Data 12/14/24 05:20 12/14/24 05:20 Labs: Laboratory Results - last 24 hr 12/12/24 19:44: Urine Color Guerda, Urine Clarity Cloudy, Urine pH 8.0, Ur Specific [place] 1.010, Urine Protein 100 H, Urine Glucose (UA) Normal, Urine Ketones Negative, Urine Occult Blood 250 H, Urine Nitrite Positive H, Urine Bilirubin Negative, Urine Urobilinogen Normal, Ur Leukocyte Esterase 500 H, Urine RBC > 100 SEEN, Urine WBC 10-25 SEEN, Ur Squamous Epith Cells 0 SEEN, Urine Bacteria 1+, Urine Mucus 1+ 12/14/24 05:20: WBC 12.9 H, RBC 3.79 L, Hgb 11.4 L, Hct 34.7 L, MCV 91.6, MCH 30.1, MCHC 32.9, RDW Std Deviation 54.4 H, RDW Coeff of Matthew 16.1 H, Plt Count 222, MPV 9.2, Immature Gran % (Auto) 0.700, Neut % (Auto) 80.2 H, Lymph % (Auto) 7.2 L, [place] % (Auto) 9.5, Eos % (Auto) 1.7, Baso % (Auto) 0.7, Absolute Neuts (auto) 10.3 H, Absolute Lymphs (auto) 0.93, Nucleated RBC % 0, Sodium 136, Potassium 3.9, Chloride 107, Carbon Dioxide 22.0, Anion Gap 7, BUN 24 H, Creatinine 1.22, Estim Creat Clear Calc 60.23, Est GFR (MDRD) Af Amer 74, Est GFR (MDRD) Non-Af 62, BUN/Creatinine Ratio 19.7, Glucose 112 H, Calcium 8.5 Micro: Microbiology 12/12/24 22:03 Blood Culture (Wb) - Left Hand Blood Culture - Preliminary Gram negative gill 12/12/24 22:00 Blood Culture (Wb) - Right Wrist Blood Culture - Preliminary Gram negative gill 12/12/24 19:44 Urine Catheter - Dowling Urine Culture - Preliminary Proteus mirabilis Gram positive organism Physical Exam Const alert and no apparent distress HEENT head/scalp atraumatic and moist oral mucous membranes Resp normal respiratory effort, no retractions, no use of accessory muscles and clear to auscultation bilaterally Cardio regular rate, regular rhythm, S1 normal heart sound and S2 normal heart sound GI normal to inspection, nondistended, normoactive bowel sounds, soft to palpation, non-tender and non-distended Neuro Sensorium / Orientation: awake and alert Assessment & Plan Assessment/Plan (1) Complicated urinary tract infection: PLAN: Plan Acute Complicated Urinary Tract Infection secondary to chronic indwelling Dowling catheter secondary to BPH with obstructive pathology with neurogenic bladder with moderate left-sided hydronephrosis: Dowling catheter changed in the ED prior to admission to the floor. On cefepime. UCx showing Proteus sp., sensitivities pending. Bacteremia gram negative. Suspect Proteus, will await final indentification. Chronic conditions: Recent intractable lumbar back pain, improved with underlying paresthesias: Will continue as needed low-dose tizanidine with hold as needed for sedation, lidocaine patches, low-dose oral pain regimen and gabapentin, encourage offloading, fall precautions, continue therapy and case management consultation. Would plan to return to TCU once clinically appropriate. BPH with obstructive pathology with neurogenic bladder with chronic indwelling Dowling catheter, contributes to presentation as noted: Will maintain patient on Flomax regimen, continue to monitor I's and O's. Chronic iron deficiency anemia: Admission hemoglobin 14.3, MCV 93.3, baseline recently 13-14 but more remotely had been down 10-11 range, will continue iron supplementation, continue to trend CBC. Hypertension: Continue home regimen including amlodipine, PRN hydralazine. Former tobacco use: Encourage continued tobacco cessation. GERD: Per current list is not on any chronic regimen, will have as needed Mylanta regimen. Anxiety and depression: Noted in history, not on any regimen, encourage continued outpatient follow-up and evaluation with PCP as previously arranged. DVT prophylaxis: SCDs, defer chemoprophylaxis given recent hematuria with UTIs noted. Disposition: back to TCU, hopefully with IM ceftriaxone. Charges/Coding Visit Charges Inpatient E&M: 84124 Subs Hosp L2
[2024-12-14 09:29] VITALS: BP 109/74; PULSE 76; RESP 18; TEMP 37.4; O2SAT 94
[2024-12-14] MEDS: Potassium Chloride Oral Tablet 20 MEQ PO (09:38)
[2024-12-14] MEDS: Senna/Docusate Sodium 1 Tablet 2 TABLET PO (09:38)
[2024-12-14] MEDS: Acetaminophen 325 MG Tablet 650 MG PO ×2 (09:38→18:04)
[2024-12-14] MEDS: Cefepime HCl 2 GM in 0.9% Normal Saline (100mL MB+) 100 ML IV ×2 (09:39→22:18)
[2024-12-14] MEDS: amLODIPine 5 MG Tablet PO (09:40)
[2024-12-14] MEDS: Lidocaine 5% Patch 2 PATCH TOPICAL (09:40)
[2024-12-14] MEDS: Tolterodine Tartrate 4 MG CAP.SA PO (09:40)
[2024-12-14] MEDS: Ferrous Sulfate 325 MG Tablet PO (11:32)
[2024-12-14 12:37] VITALS: BP 104/68; PULSE 76; RESP 18; TEMP 36.9; O2SAT 95
[2024-12-14 17:55] VITALS: BP 124/82; PULSE 80; RESP 18; TEMP 36.9; O2SAT 95
[2024-12-14] MEDS: Meclizine 12.5 MG Tablet PO (18:04)
[2024-12-14 22:13] VITALS: BP 125/73; PULSE 81; RESP 16; TEMP 37.1; O2SAT 94
[2024-12-14] MEDS: Tamsulosin HCl 0.4 MG Capsule PO (22:18)
[2024-12-14] MEDS: traZODone 100 MG Tablet PO (22:18)
[2024-12-15] MEDS: Acetaminophen 325 MG Tablet 650 MG PO (01:50)
[2024-12-15 03:31] VITALS: BP 119/71; PULSE 76; RESP 16; TEMP 37.1; O2SAT 94
[2024-12-15 05:06] VITALS: BMI 30.9
[2024-12-15] MEDS: Gabapentin 300 MG Capsule 900 MG PO ×2 (05:54→13:20)
--- NOTE | 2024-12-15 07:46 | PN.HOSP_ITS ---
Reason for Visit Reason for Visit: Diagnoses Urinary tract infection, site not specified (12/13/24) Subjective Subjective Feeling well. No events. Objective Data Objective Data Vital Signs: Vital Signs Temp Pulse Resp BP Pulse Ox O2 Del Method 37.1 C 76 16 119/71 94 Room Air 12/15/24 03:31 12/15/24 03:31 12/15/24 03:31 12/15/24 03:31 12/15/24 03:31 12/15/24 04:41 Oxygen Delivery Method Room Air Weight: 100.1 kg Body Mass Index (BMI) 30.9 Intake & Output: Intake and Output for Last 24 Hours 12/13/24 12/14/24 12/15/24 23:59 23:59 23:59 Intake Total 4060 / 4060 1250 / 1250 Output Total 2875 / 2875 1600 / 2800 1650 / 1650 Balance 1185 / 1185 -350 / -1550 -1650 / -1650 Lab / Micro Data 12/14/24 05:20 12/14/24 05:20 Labs: Laboratory Results - last 24 hr 12/12/24 19:44: Urine Color Guerda, Urine Clarity Cloudy, Urine pH 8.0, Ur Specific [place] 1.010, Urine Protein 100 H, Urine Glucose (UA) Normal, Urine Ketones Negative, Urine Occult Blood 250 H, Urine Nitrite Positive H, Urine Bilirubin Negative, Urine Urobilinogen Normal, Ur Leukocyte Esterase 500 H, Urine RBC > 100 SEEN, Urine WBC 10-25 SEEN, Ur Squamous Epith Cells 0 SEEN, Urine Bacteria 1+, Urine Mucus 1+ Micro: Microbiology 12/12/24 19:44 Urine Catheter - Dowling Urine Culture - Preliminary Proteus mirabilis GPC Poss Enterococcus sp 12/12/24 22:03 Blood Culture (Wb) - Left Hand Blood Culture - Preliminary Gram negative gill 12/12/24 22:00 Blood Culture (Wb) - Right Wrist Blood Culture - Preliminary Gram negative gill Physical Exam Const alert and no apparent distress HEENT head/scalp atraumatic and moist oral mucous membranes Cardio regular rate, regular rhythm, S1 normal heart sound and S2 normal heart sound GI normal to inspection, nondistended, normoactive bowel sounds, soft to palpation, non-tender and non-distended Extremity normal to inspection and full ROM Neuro Sensorium / Orientation: awake and alert Assessment & Plan Assessment/Plan (1) Complicated urinary tract infection: PLAN: Plan Acute Complicated Urinary Tract Infection * secondary to chronic indwelling Dowling catheter secondary to BPH with obstructive pathology with neurogenic bladder with moderate left-sided hydronephrosis: * Dowling catheter changed in the ED prior to admission to the floor. * On cefepime. Change to CTX. IV while in hospital. IM upon discharge to TCU. Treat for 10-days (through 12/22) * UCx showing Proteus sp., sensitivities pending. Bacteremia * gram negative. Proteus. 2/2 UTI. Chronic conditions: * Recent intractable lumbar back pain, improved with underlying paresthesias: Will continue as needed low-dose tizanidine with hold as needed for sedation, lidocaine patches, low-dose oral pain regimen and gabapentin, encourage offloading, fall precautions, continue therapy and case management consultation. Would plan to return to TCU once clinically appropriate. * BPH with obstructive pathology with neurogenic bladder with chronic indwelling Dowling catheter, contributes to presentation as noted: Will maintain patient on Flomax regimen, continue to monitor I's and O's. * Chronic iron deficiency anemia: Admission hemoglobin 14.3, MCV 93.3, baseline recently 13-14 but more remotely had been down 10-11 range, will continue iron supplementation, continue to trend CBC. * Hypertension: Continue home regimen including amlodipine, PRN hydralazine. * Former tobacco use: Encourage continued tobacco cessation. * GERD: Per current list is not on any chronic regimen, will have as needed Mylanta regimen. * Anxiety and depression: Noted in history, not on any regimen, encourage continued outpatient follow-up and evaluation with PCP as previously arranged. DVT prophylaxis: SCDs, defer chemoprophylaxis given recent hematuria with UTIs noted. Disposition: back to TCU Charges/Coding Visit Charges Inpatient E&M: 82225 Subs Hosp L2
[2024-12-15 09:10] VITALS: BP 118/82; PULSE 76; RESP 18; TEMP 36.6; O2SAT 94
[2024-12-15] MEDS: Tolterodine Tartrate 4 MG CAP.SA PO (09:12)
[2024-12-15] MEDS: 0.9% Saline Lock 10 ML Syringe IV ×2 (09:12→11:43)
[2024-12-15] MEDS: Potassium Chloride Oral Tablet 20 MEQ PO (09:12)
[2024-12-15] MEDS: Ferrous Sulfate 325 MG Tablet PO (09:12)
[2024-12-15] MEDS: amLODIPine 5 MG Tablet PO (09:12)
[2024-12-15] MEDS: Lidocaine 5% Patch 2 PATCH TOPICAL (09:12)
[2024-12-15] MEDS: Cefepime HCl 2 GM in 0.9% Normal Saline (100mL MB+) 100 ML IV (09:16)
--- NOTE | 2024-12-15 10:35 | TREXTCAR_ITS ---
Diet Diet Order/Speech Therapy: 12/12/24 23:05 Diet: Cardiac - Heart Healthy Food consistency:: Regular Liquid Consistency:: Regular/Thin DC O2, CPAP, BIPAP needs Home O2 Discharge instructions: No Problem/Diagnosis (1) Complicated urinary tract infection: Status: Acute Code(s): N39.0 - Urinary tract infection, site not specified Plan Acute Complicated Urinary Tract Infection * secondary to chronic indwelling Dowling catheter secondary to BPH with obstructive pathology with neurogenic bladder with moderate left-sided hydronephrosis: * Dowling catheter changed in the ED prior to admission to the floor. * On cefepime. Change to CTX. IV while in hospital. IM upon discharge to TCU. Treat for 10-days (through 12/22) * UCx showing Proteus sp., sensitivities pending. Bacteremia * gram negative. Proteus. 2/2 UTI. Chronic conditions: * Recent intractable lumbar back pain, improved with underlying paresthesias: Will continue as needed low-dose tizanidine with hold as needed for sedation, lidocaine patches, low-dose oral pain regimen and gabapentin, encourage offloading, fall precautions, continue therapy and case management consultation. Would plan to return to TCU once clinically appropriate. * BPH with obstructive pathology with neurogenic bladder with chronic indwelling Dowling catheter, contributes to presentation as noted: Will maintain patient on Flomax regimen, continue to monitor I's and O's. * Chronic iron deficiency anemia: Admission hemoglobin 14.3, MCV 93.3, baseline recently 13-14 but more remotely had been down 10-11 range, will continue iron supplementation, continue to trend CBC. * Hypertension: Continue home regimen including amlodipine, PRN hydralazine. * Former tobacco use: Encourage continued tobacco cessation. * GERD: Per current list is not on any chronic regimen, will have as needed Mylanta regimen. * Anxiety and depression: Noted in history, not on any regimen, encourage continued outpatient follow-up and evaluation with PCP as previously arranged. DVT prophylaxis: SCDs, defer chemoprophylaxis given recent hematuria with UTIs noted. Disposition: back to TCU Allergies/Procedures Done in Hospital Allergies diltiazem (From Cardizem) Adverse Reaction (Verified 12/12/24 18:00) unknown losartan (From Hyzaar) Adverse Reaction (Verified 12/12/24 18:00) unknown metoprolol (From Lopressor) Adverse Reaction (Verified 12/12/24 18:00) unknown valsartan (From Diovan) Adverse Reaction (Verified 12/12/24 18:00) unknown Type of Care/Length of Stay Estimated LOS: Convalescent Care Less Than 30 days Type of Care Needed: Skilled Rehab Potential: Good Prognosis: Good Additional Orders/Day of Discharge Day of Discharge: 12/15/24 Dietary and Speech Recommendations Dietitian Recommendations/Changes: Continue cardiac diet. Will reassess nutrition questions with pt when he is not confused. Reviewed and approved by Jessy Kilgore, [place], LD. Discharge Plan Admission Admit Date/Time: 12/13/24 15:29 Primary Reason for Your Visit: UTI. Bacteremia. Attending Provider: Rufino Vitale Primary Care Provider: Corrie Marinelli Consulting Providers: Mai Kline Discharge Orders/Prescriptions Prescriptions: New ceftriaxone 1 gram recon soln 1 g IM DAILY Qty: 1 6RF Continued tamsulosin 0.4 mg capsule 0.4 mg PO QHS potassium chloride 20 mEq Tablet,Er Particles/Crystals 20 meq PO DAILYCM 30 Days Qty: 30 0RF ferrous sulfate 324 mg (65 mg iron) tablet,delayed release (DR/EC) 324 mg PO DAILY lidocaine 5 % Adhesive Patch,Medicated 2 patch topical DAILY Protocol: *Topical Application Instructions APPLICATION INSTRUCTIONS: Lumbar back Rx Instructions: Lumbar back oxycodone 5 mg Tablet 5 mg PO Q4H PRN PRN (Reason: Pain Score 4-10) 3 Days Qty: 10 0RF trazodone 100 mg tablet 100 mg PO QHS acetaminophen 325 mg Tablet 650 mg PO Q4H PRN PRN (Reason: Fever, pain 1-10/10) Qty: 0 0RF meclizine 12.5 mg Tablet 12.5 mg PO TID PRN PRN (Reason: Dizziness) Qty: 0 0RF gabapentin 300 mg Capsule 900 mg PO TID Qty: 0 0RF tizanidine 2 mg Tablet 2 mg PO Q8H PRN PRN (Reason: muscle strain/spasms) Qty: 0 0RF tolterodine 4 mg Capsule,Extended Release 24hr 4 mg PO DAILY Qty: 0 0RF sennosides-docusate sodium [Stimulant Laxative Plus] 8.6-50 mg Tablet 2 tab PO BID PRN PRN (Reason: Constipation) Qty: 1 0RF amlodipine 5 mg tablet 5 mg PO DAILY Qty: 1 0RF Referrals / Follow Up: Corrie Marinelli, MDM SR [Primary Care Provider] - Within 2 Weeks Disposition Disposition (needs filled in before D/C Order can be placed): [facility]
[2024-12-15 11:32] VITALS: BP 118/82; PULSE 76; RESP 18; TEMP 36.6; O2SAT 94
--- NOTE | 2024-12-15 13:08 | PHA.DC_ITS ---
Pharmacy [place] Med Reconciliation Pharmacy Service has performed discharge medication reconciliation for this patient. The patient's discharge medication list was reviewed for discrepancies and discrepancies were resolved. Medications at Discharge Home Medications tamsulosin 0.4 mg capsule 0.4 mg PO QHS PROSTATE 03/11/23 potassium chloride 20 mEq tablet,extended release(part/cryst) 20 meq PO DAILYCM supplement 30 days #30 tabs 03/07/24 ferrous sulfate 324 mg (65 mg iron) tablet,delayed release 324 mg PO DAILY supplement 09/12/24 trazodone 100 mg tablet 100 mg PO QHS sleep 11/30/24 acetaminophen 325 mg tablet 650 mg (2 x 325 mg) PO Q4H PRN PRN Fever, pain 1- 08/31 #0 tabs 12/05/24 amlodipine 5 mg tablet 5 mg PO DAILY BP #1 TAB 12/05/24 gabapentin 300 mg capsule 900 mg (3 x 300 mg) PO TID Nerve pain #0 caps 12/05/24 lidocaine 5 % topical patch 2 patch topical DAILY pain 12/05/24 meclizine 12.5 mg tablet 12.5 mg PO TID PRN PRN Dizziness #0 tabs 12/05/24 sennosides 8.6 mg-docusate sodium 50 mg tablet (Stimulant Laxative Plus) 2 tab PO BID PRN PRN Constipation #1 TAB 12/05/24 tizanidine 2 mg tablet 2 mg PO Q8H PRN PRN muscle strain/spasms #0 tabs 12/05/24 tolterodine 4 mg capsule,extended release 24 hr 4 mg PO DAILY Overactive bladder #0 caps 12/05/24 ceftriaxone 1 gram solution for injection 1 g IM DAILY #1 ea 12/15/24 oxycodone 5 mg tablet 5 mg PO Q4H PRN PRN Pain Score 4-10 3 days #10 tabs 12/15/24
--- NOTE | 2024-12-15 13:45 | CASEMGMT ---
Addendum entered by Nayeli Causey 12/15/24 15:11: Patient called his daughter while SW in room. Voice mail came on and a message was left letting her know patient was headed back to [facility] today. Nayeli REGAN Original Note: Patient was approved by insurance to return to TCU. SW notified patient. Patient would like for SW to notify his daughter. SW tried several times to call patient's daughter, but the number did not go through. SW let patient know SW could not reach his daughter. Plan: d/c back to [facility] under skilled level of care. Nayeli REGAN
--- NOTE | 2024-12-15 14:02 | NURSING ---
Report called to nurse Smith for pt to be d/c back to TCU.
--- NOTE | 2024-12-15 14:25 | DS.PCM_ITS ---
Providers Date of Admission: 12/13/24 Primary Care Physician: MARGARITA Jacob Reason For Visit: UTI Diagnosis Discharge Diagnosis (1) Complicated urinary tract infection: Status: Acute Code(s): N39.0 - Urinary tract infection, site not specified Plan Acute Complicated Urinary Tract Infection * secondary to chronic indwelling Dowling catheter secondary to BPH with obstructive pathology with neurogenic bladder with moderate left-sided hydronephrosis: * Dowling catheter changed in the ED prior to admission to the floor. * On cefepime. Change to CTX. IV while in hospital. IM upon discharge to TCU. Treat for 10-days (through 12/22) * UCx showing Proteus sp., sensitivities pending. Bacteremia * gram negative. Proteus. 2/2 UTI. Chronic conditions: * Recent intractable lumbar back pain, improved with underlying paresthesias: Will continue as needed low-dose tizanidine with hold as needed for sedation, lidocaine patches, low-dose oral pain regimen and gabapentin, encourage offloading, fall precautions, continue therapy and case management consultation. Would plan to return to TCU once clinically appropriate. * BPH with obstructive pathology with neurogenic bladder with chronic indwelling Dowling catheter, contributes to presentation as noted: Will maintain patient on Flomax regimen, continue to monitor I's and O's. * Chronic iron deficiency anemia: Admission hemoglobin 14.3, MCV 93.3, baseline recently 13-14 but more remotely had been down 10-11 range, will continue iron supplementation, continue to trend CBC. * Hypertension: Continue home regimen including amlodipine, PRN hydralazine. * Former tobacco use: Encourage continued tobacco cessation. * GERD: Per current list is not on any chronic regimen, will have as needed Mylanta regimen. * Anxiety and depression: Noted in history, not on any regimen, encourage continued outpatient follow-up and evaluation with PCP as previously arranged. DVT prophylaxis: SCDs, defer chemoprophylaxis given recent hematuria with UTIs noted. Disposition: back to TCU Medications at Discharge Home Medications tamsulosin 0.4 mg capsule 0.4 mg PO QHS PROSTATE 03/11/23 potassium chloride 20 mEq tablet,extended release(part/cryst) 20 meq PO DAILYCM supplement 30 days #30 tabs 03/07/24 ferrous sulfate 324 mg (65 mg iron) tablet,delayed release 324 mg PO DAILY supplement 09/12/24 trazodone 100 mg tablet 100 mg PO QHS sleep 11/30/24 acetaminophen 325 mg tablet 650 mg (2 x 325 mg) PO Q4H PRN PRN Fever, pain 1- 1010 #0 tabs 12/05/24 amlodipine 5 mg tablet 5 mg PO DAILY BP #1 TAB 12/05/24 gabapentin 300 mg capsule 900 mg (3 x 300 mg) PO TID Nerve pain #0 caps 12/05/24 lidocaine 5 % topical patch 2 patch topical DAILY pain 12/05/24 meclizine 12.5 mg tablet 12.5 mg PO TID PRN PRN Dizziness #0 tabs 12/05/24 sennosides 8.6 mg-docusate sodium 50 mg tablet (Stimulant Laxative Plus) 2 tab PO BID PRN PRN Constipation #1 TAB 12/05/24 tizanidine 2 mg tablet 2 mg PO Q8H PRN PRN muscle strain/spasms #0 tabs 12/05/24 tolterodine 4 mg capsule,extended release 24 hr 4 mg PO DAILY Overactive bladder #0 caps 12/05/24 ceftriaxone 1 gram solution for injection 1 g IM DAILY #1 ea 12/15/24 oxycodone 5 mg tablet 5 mg PO Q4H PRN PRN Pain Score 4-10 3 days #10 tabs 12/15/24 Hospital Course Operations None Procedures None Summary of Care Provided Minutes Spent on Discharge: 32 Weight / BMI Weight Weight: 100.1 kg Body Mass Index (BMI) 30.9 ABG / Lab / Microbiology Data 12/14/24 05:20 12/14/24 05:20 Microbiology: Microbiology 12/12/24 19:44 Urine Catheter - Dowling Urine Culture - Final Proteus mirabilis Enterococcus faecalis 12/12/24 22:03 Blood Culture (Wb) - Left Hand Blood Culture - Final Gram negative gill 12/12/24 22:00 Blood Culture (Wb) - Right Wrist Blood Culture - Final Proteus mirabilis D/C Instructions Discharge Diet: No restrictions DC O2, CPAP, BIPAP Needs Home O2 Discharge instructions: No Meaningful Use Info Meaningful Use Meaningful Use Diagnoses (Choose all that apply): None applicable Ischemic Stroke Statin Dosing Therapy Reference: STATIN DOSE THERAPY REFERENCE: * Patients > 75 years receive moderate or high dose statin therapy. * Patients 75 years or YOUNGER should receive HIGH intensity statin dose unless contraindicated. You will be required to document reason for non-treatment if statin daily dose does not meet guidelines. HIGH DOSE STATIN THERAPY DAILY Atorvastatin > than or = to 40 mg Rosuvastatin > than or = to 20 mg Amlodipine + Atorvastatin > than or = to 2.5/40 mg Ezetimibe + Simvastatin 10/80 mg Simvastatin 80mg Discharge Plan Admission Admit Date/Time: 12/13/24 15:29 Primary Reason for Your Visit: UTI. Bacteremia. Attending Provider: Rufino Vitale Primary Care Provider: Corrie Marinelli Consulting Providers: Mai Kline Discharge Orders/Prescriptions Prescriptions: New ceftriaxone 1 gram recon soln 1 g IM DAILY Qty: 1 6RF Continued tamsulosin 0.4 mg capsule 0.4 mg PO QHS potassium chloride 20 mEq Tablet,Er Particles/Crystals 20 meq PO DAILYCM 30 Days Qty: 30 0RF ferrous sulfate 324 mg (65 mg iron) tablet,delayed release (DR/EC) 324 mg PO DAILY lidocaine 5 % Adhesive Patch,Medicated 2 patch topical DAILY Protocol: *Topical Application Instructions APPLICATION INSTRUCTIONS: Lumbar back Rx Instructions: Lumbar back oxycodone 5 mg Tablet 5 mg PO Q4H PRN PRN (Reason: Pain Score 4-10) 3 Days Qty: 10 0RF trazodone 100 mg tablet 100 mg PO QHS acetaminophen 325 mg Tablet 650 mg PO Q4H PRN PRN (Reason: Fever, pain 1-10/10) Qty: 0 0RF meclizine 12.5 mg Tablet 12.5 mg PO TID PRN PRN (Reason: Dizziness) Qty: 0 0RF gabapentin 300 mg Capsule 900 mg PO TID Qty: 0 0RF tizanidine 2 mg Tablet 2 mg PO Q8H PRN PRN (Reason: muscle strain/spasms) Qty: 0 0RF tolterodine 4 mg Capsule,Extended Release 24hr 4 mg PO DAILY Qty: 0 0RF sennosides-docusate sodium [Stimulant Laxative Plus] 8.6-50 mg Tablet 2 tab PO BID PRN PRN (Reason: Constipation) Qty: 1 0RF amlodipine 5 mg tablet 5 mg PO DAILY Qty: 1 0RF Referrals / Follow Up: Corrie Marinelli, CLERK OF COURT [Primary Care Provider] - Within 2 Weeks Disposition Disposition (needs filled in before D/C Order can be placed): Detention Facility Charges/Coding Visit Charges Inpatient E&M: 67675 Disch Hosp >30min
== END 2024-12-15 15:12 | disposition skilled nursing facility (03) | DRG 699 ==
LOC: ED 21:53 → PCU 22:21
PROVIDERS: Admitting Provider Family Medicine; Emergency Provider Emergency Medicine; PCP Clinical Nurse Specialist Adult Health
DX: T83.511A Infection and inflammatory reaction due to indwelling urethral catheter, initial encounter (principal); N13.6 Pyonephrosis; R78.81 Bacteremia; N13.8 Other obstructive and reflux uropathy; B15.9 Hepatitis A without hepatic coma; I12.9 Hypertensive chronic kidney disease with stage 1 through stage 4 chronic kidney disease, or unspecified chronic kidney disease; D50.9 Iron deficiency anemia, unspecified; M54.50 Low back pain, unspecified; N18.2 Chronic kidney disease, stage 2 (mild); E78.5 Hyperlipidemia, unspecified; Z87.891 Personal history of nicotine dependence; B96.4 Proteus (mirabilis) (morganii) as the cause of diseases classified elsewhere; N31.9 Neuromuscular dysfunction of bladder, unspecified; N40.1 Benign prostatic hyperplasia with lower urinary tract symptoms; Z79.899 Other long term (current) drug therapy; Z96.649 Presence of unspecified artificial hip joint; R79.89 Other specified abnormal findings of blood chemistry
CPT/HCPCS: 36415; 51702; 74177; 80048; 80053; 80076; 81001; 83605; 83690; 85025; 85610; 85730; 87040; 87077; 87086; 87088; 87186; 93005; 97116; 97162; 97166; 97530; 97535; 97802; 99285; Q9967; A4216; J2405

== ENCOUNTER 2024-12-15 15:23 | Inpatient (IN) | payer MEDICARE, SELFPAY ==
[2024-12-15 15:39] VITALS: BP 115/77; PULSE 80; RESP 16; TEMP 36.6; O2SAT 97; BMI 28.9
[2024-12-15 15:42] VITALS: BMI 29.0
--- NOTE | 2024-12-15 15:45 | HP.PCM_ITS ---
HPI - General General Date of Admission: 12/15/24 Date of Service: 12/15/24 Chief Complaint: Here for rehabilitation. HPI Narrative MIROSLAVA PALACIO, is a 74 Male who presents with followin12/12/2024 [facility] ED TCU resident rehabing for intractable low back pain with generalized illness. Nausea, Vomiting, Dizziness, Lightheadedness, blood in urine, he has chronic indwelling hancock catheter, recent urine cultures growing Proteus. WBC 16.3, Lactic acid 1.9. Urinalysis c/w UTI, urine culture sent, blood cultures sent. Cefepime, Zofran, IV fluids given. CT abdomen/pelvis showed left hydronephrosis, hancock catheter in bladder. 12/12/2024 Admit [facility]. Cefepime for complicated urinary tract infection. IV fluids for acute kidney injury. 12/13/2024 Hancock catheter changed in ER. Cefepime IV for complicated UTI 2/2 BPH, neurogenic bladder, moderate left hydronephrosis. Urine culture growing Proteus. 12/14/2024 Feels well, no complaints. Urine culture pending. 12/15/2024 Change Cefepime to Ceftriaxone IV, then IM on TCU thru 12/22/2024. Blood cultures growing gram negative gill, probably proteus. 12/15/2024 Admit to TCU with debility, here for rehabilitation, strengthening, prior to discharge home alone. [facility] Medical History (Updated 12/15/24 @ 16:[address] Nhan White MD) Debility Intractable back pain Neuropathic pain of both legs Chronic indwelling Hancock catheter Unable to ambulate Back pain Chest pain Vision loss of right eye Anxiety Depression GERD (gastroesophageal reflux disease) Hypertension Right femoral fracture History of fractured rib (08/12/20) Anxiety Essential (primary) hypertension Hepatitis A Osteoarthritis Home Medications ?Medication ?Instructions ?Recorded ?Last Taken ?Type tamsulosin 0.4 mg capsule 0.4 mg PO QHS PROSTATE 03/11/23 12/04/24 History potassium chloride 20 mEq 20 meq PO DAILYCM supplement 30 03/07/24 12/05/24 Rx tablet,extended release(part/cryst) days #30 tabs ferrous sulfate 324 mg (65 mg 324 mg PO DAILY supplement 09/12/24 12/05/24 History iron) tablet,delayed release trazodone 100 mg tablet 100 mg PO QHS sleep 11/30/24 12/04/24 History acetaminophen 325 mg tablet 650 mg (2 x 325 mg) PO Q4H PRN PRN 12/05/24 12/05/24 Rx Fever, pain 1-10/10 #0 tabs amlodipine 5 mg tablet 5 mg PO DAILY BP #1 TAB 12/05/24 Unknown Rx gabapentin 300 mg capsule 900 mg (3 x 300 mg) PO TID Nerve 12/05/24 12/05/24 Rx pain #0 caps lidocaine 5 % topical patch 2 patch topical DAILY pain 12/05/24 12/05/24 History meclizine 12.5 mg tablet 12.5 mg PO TID PRN PRN Dizziness 12/05/24 12/03/24 Rx #0 tabs sennosides 8.6 mg-docusate sodium 2 tab PO BID PRN PRN Constipation 12/05/24 Unknown Rx 50 mg tablet (Stimulant Laxative #1 TAB Plus) tizanidine 2 mg tablet 2 mg PO Q8H PRN PRN muscle 12/05/24 12/04/24 Rx strain/spasms #0 tabs tolterodine 4 mg capsule,extended 4 mg PO DAILY Overactive bladder 12/05/24 12/05/24 Rx release 24 hr #0 caps ceftriaxone 1 gram solution for 1 g IM DAILY antiobiotic #1 ea 12/15/24 Unknown Rx injection oxycodone 5 mg tablet 5 mg PO Q4H PRN PRN Pain Score 12/15/24 Unknown Rx 4-10 3 days #10 tabs Allergy/AdvReac Type Severity Reaction Status Date / Time diltiazem (From Cardizem) AdvReac unknown Verified 12/12/24 18:00 losartan (From Hyzaar) AdvReac unknown Verified 12/12/24 18:00 metoprolol (From Lopressor) AdvReac unknown Verified 12/12/24 18:00 valsartan (From Diovan) AdvReac unknown Verified 12/12/24 18:00 Family History Mother Heart disease Cancer breast Sister Heart disease Father , in a train accident. No problems noted. Surgical History History of lumbar laminectomy for spinal cord decompression History of shoulder surgery History of elbow surgery History of hip replacement Social History household members: none Smoking Status: Former smoker quit date: 11/22/92 pack-years: 46 alcohol intake: former year quit: 1991 substance use type: does not use ROS Constitutional Constitutional: Reports weakness; Denies chills, fever(s) or weight gain ENT HEENT: Denies headache(s), nasal congestion or nasal discharge Cardiovascular Cardiovascular: Denies chest pain or palpitations Respiratory/Chest Respiratory/Chest: Denies cough, excessive phlegm production or shortness of breath with exertion Gastrointestinal Gastrointestinal: Denies abdominal pain, nausea or vomiting Genitourinary Genitourinary: Denies dysuria Musculoskeletal Musculoskeletal: Denies joint pain or joint swelling Integumentary Integumentary: Denies rash or wounds Neurologic Neurologic: Denies focal weakness, numbness or tingling Psychiatric Psychiatric: Denies anxiety, auditory hallucinations, depression, homicidal ideation or suicidal ideation Physical Exam Const alert General Appearance: cooperative HEENT normocephalic Eyes PERRL and EOMs intact bilaterally Neck supple, no JVD and no carotid bruits Resp normal respiratory effort, normal air movement and clear to auscultation bilaterally Cardio regular rate and regular rhythm GI normal to inspection, nondistended, normoactive bowel sounds, non-tender and non-distended Bladder / Kidney Exam: catheter in place urethral Extremity normal capillary refill General Extremity: Negative for edema Skin no rashes or lesions noted General Skin Exam: no breakdown Psych affect normal Appearance: appropriate Assessment & Plan Assessment/Plan (1) Complicated urinary tract infection: (2) Debility: (3) Bacteremia: (4) MUNA (acute kidney injury): (5) Hydronephrosis, left: (6) Essential (primary) hypertension: (7) Iron deficiency anemia: (8) Neuropathic pain: (9) BPPV (benign paroxysmal positional vertigo): QUALIFIERS: Laterality: unspecified laterality Qualified Code(s): H81.10 - Benign paroxysmal vertigo, unspecified ear (10) Hypokalemia: (11) BPH (benign prostatic hyperplasia): (12) Urinary retention: (13) Neurogenic bladder: (14) Muscle spasm: (15) Insomnia: PLAN: Plan 74 year old male with below past medical history hospitalized for complicated urinary tract infection 2/2 neurogenic bladder, chronic indwelling hancock catheter, left hydronephrosis, complicated by acute kidney injury, bacteremia, admitted to TCU with debility, here for rehabilitation, strengthening, prior to discharge home alone. * Debility - PT/OT. * Pain - Tylenol 1000mg q6 prn pain (1-3), Oxycodone 5mg q4 prn pain (4-10), Lidoderm 2 patches td daily. * Bowel - senna/colace 2 tablets bid prn. * Adult immunization - Administer pneumonia vaccine, covid vaccine, flu vaccine as appropriate. * DVT prophylaxis - Lovenox 40mg sc daily. * Hypertension - Amlodipine 5mg daily. * P. Mirabilis UTI/Bacteremia - Ceftriaxone 1gm iv daily thru 12/22/2024. * Iron deficiency anemia - Ferrous sulfate 325mg daily. * Neuropathic pain - Gabapentin 900mg tid. * BPPV - Meclizine 12.5mg tid prn. * Hypokalemia - KCL ER 20meq daily. * BPH/urinary retention - Tamsulosin 0.4mg daily, indwelling hancock catheter. * Muscle spasm - Tizanidine 2mg q8 prn. * Insomnia - Trazodone 100mg qhs, stable chronic snf use, GDR not recommended.
[2024-12-15 16:00] VITALS: PULSE 80; RESP 18; O2SAT 97
[2024-12-15] MEDS: Senna/Docusate Sodium 1 Tablet 2 TABLET PO (17:35)
--- NOTE | 2024-12-15 17:36 | NURSING ---
PRN S[place]OT GIVEN DUE TO NO BM IN 4 DAYS PER PT REPORT.
[2024-12-15] MEDS: Gabapentin 300 MG Capsule 900 MG PO (20:07)
[2024-12-15] MEDS: Tamsulosin HCl 0.4 MG Capsule PO (20:07)
[2024-12-15] MEDS: traZODone 100 MG Tablet PO (20:08)
[2024-12-15] MEDS: Menthol/Lanolin/Calamine/Znox 113 GM Tube 1 APPLIC TOPICAL (20:14)
[2024-12-15] MEDS: Nystatin Powder 15gm Bottle 1 APPLIC TOPICAL (20:15)
[2024-12-16] MEDS: oxyCODONE 5 MG Tablet PO ×2 (01:39→08:17)
[2024-12-16] MEDS: Acetaminophen 500 MG Tablet 1000 MG PO ×2 (01:41→21:18)
[2024-12-16] MEDS: Gabapentin 300 MG Capsule 900 MG PO ×3 (05:40→21:18)
[2024-12-16] MEDS: Enoxaparin 40 MG/0.4 ML Syringe SC (05:40)
[2024-12-16 06:01] LABS: Absolute Lymphocyte Count 1.38 X10^3/uL (0.83-4.51); Absolute Neutrophil Count 4.4 X10^3/uL (2.0-7.7); Basophil# 0.08 X10^3/uL; Basophil% 1.1 % (0-1); Eosinophils% 5.6 % (0-5); Hematocrit 35.5 % (40-54); Hemoglobin 11.6 g/dL (13.0-16.5); Lymphocyte # 1.38 X10^3/ul (0.83-4.51); Lymphocyte % 19.3 % (19-41); Mean Corp Hgb Conc 32.7 g/dL (32-36); Mean Corpuscular Hgb 29.8 pg (27.0-32.0); Mean Corpuscular Volume 91.3 fL (80-94); Mean Platelet Vol. 9.7 fl (6.2-12.0); Monocyte# 0.83 X10^3/uL; Monocyte% 11.6 % (0-10); NRBC Flagged by Analyzer 0 % (0-5); Neutrophil # 4.43 X10^3/uL (2.7-7.7); Platelet Count 271 K/mm3 (150-450); RBC Distribution Width CV 15.7 % (11.6-14.6); RBC Distribution Width SD 52.4 fl (35.1-43.9); Red Blood Count 3.89 M/mm3 (4.6-6.2); White Blood Count 7.2 K/mm3 (4.4-11.0)
[2024-12-16 07:03] LABS: Anion Gap 9 (5-15); BUN 17 mg/dL (7-18); BUN/Creat Ratio 15.6 RATIO (10-20); Chloride 107 mmol/L (98-107); Creatinine, Serum 1.09 mg/dL (0.70-1.30); EST Glomerular Filtration Rate 70 mL/min (>60); Est Glom Filt Rate - Afr Amer 85 mL/min (>60); Estimated Creatinine Clearance 68.59 ml/min; Glucose 112 mg/dL (74-106); Potassium 4.2 mmol/L (3.5-5.1); Sodium Level 138 mmol/L (136-145)
[2024-12-16] MEDS: Potassium Chloride Oral Tablet 20 MEQ PO (08:11)
[2024-12-16] MEDS: Nystatin Powder 15gm Bottle 1 APPLIC TOPICAL ×2 (08:11→21:19)
[2024-12-16] MEDS: Lidocaine 5% Patch 2 PATCH TOPICAL (08:11)
[2024-12-16] MEDS: Menthol/Lanolin/Calamine/Znox 113 GM Tube 1 APPLIC TOPICAL ×2 (08:11→21:19)
[2024-12-16] MEDS: amLODIPine 5 MG Tablet PO (08:11)
[2024-12-16] MEDS: Meclizine 12.5 MG Tablet PO ×2 (08:14→21:25)
[2024-12-16 08:15] VITALS: BP 109/68; PULSE 83; RESP 18; TEMP 36.4; O2SAT 94
[2024-12-16] MEDS: 0.9% Saline Lock 10 ML Syringe IV ×2 (08:15→21:17)
[2024-12-16] MEDS: Ceftriaxone 1 GM/50 mL Premix Q24 IV (08:21)
--- NOTE | 2024-12-16 10:23 | PCM.PN.DRR ---
Documented by User: David Rosales 12/16/24 10:42 TCU RX Drug Regimen Review Subjective/Objective Subjective/Objective Subjective: TCU admission note. 74 year old male with below past medical history hospitalized for complicated urinary tract infection 2/2 neurogenic bladder, chronic indwelling hancock catheter, left hydronephrosis, complicated by acute kidney injury, bacteremia, admitted to TCU with debility, here for rehabilitation, strengthening, prior to discharge home alone. Objective: Allergies diltiazem (From Cardizem) Adverse Reaction (Verified 12/12/24 18:00) unknown losartan (From Hyzaar) Adverse Reaction (Verified 12/12/24 18:00) unknown metoprolol (From Lopressor) Adverse Reaction (Verified 12/12/24 18:00) unknown valsartan (From Diovan) Adverse Reaction (Verified 12/12/24 18:00) unknown Current Medications Generic Name Dose Route Start Last Admin Trade Name Freq PRN Reason Stop Dose Admin Acetaminophen 1,000 mg 12/15/24 16:06 12/16/24 01:41 Acetaminophen 500 Mg Tablet PO 1,000 mg Q6H PRN PRN Administration Pain Score 1-3 Amlodipine Besylate 5 mg 12/16/24 10:00 12/16/24 08:11 Amlodipine 5 Mg Tablet PO 5 mg DAILY [facility] Administration Protocol Calamine/Phenol 1 applic 12/15/24 22:00 12/16/24 08:11 Menthol/Lanolin/Calamine/Znox 113 Gm Tube TOPICAL 1 applic BID [facility] Administration Protocol Enoxaparin Sodium 40 mg 12/16/24 06:00 12/16/24 05:40 Enoxaparin 40 Mg/0.4 Ml Syringe SC 40 mg DAILY@0600 [facility] Administration Ferrous Sulfate 325 mg 12/16/24 12:00 Ferrous Sulfate 325 Mg Tablet PO DAILY@1200 [facility] Gabapentin 900 mg 12/15/24 22:00 12/16/24 05:40 Gabapentin 300 Mg Capsule PO 900 mg TID [facility] Administration Ceftriaxone Sodium 1 gm in 50 mls @ 100 mls/hr 12/16/24 10:00 12/16/24 09:16 Rocephin IV 12/22/24 10:01 Infused Q24 [facility] Infusion Lidocaine 2 patch 12/16/24 10:00 12/16/24 08:11 Lidocaine 5% Patch TOPICAL 2 patch DAILY [facility] Administration Protocol Meclizine HCl 12.5 mg 12/15/24 15:41 12/16/24 08:14 Meclizine 12.5 Mg Tablet PO 12.5 mg TID PRN PRN Administration Dizziness Nystatin 1 applic 12/15/24 22:00 12/16/24 08:11 Nystatin Powder 15gm Bottle TOPICAL 1 applic BID [facility] Administration Protocol Oxycodone HCl 5 mg 12/15/24 15:41 12/16/24 08:17 Oxycodone 5 Mg Tablet PO 5 mg Q4H PRN PRN Administration Pain Score 4-10 Potassium Chloride 20 meq 12/16/24 08:00 12/16/24 08:11 Potassium Chloride Oral Tablet 20 Meq PO 20 meq DAILYCM [facility] Administration Senna/Docusate Sodium 2 tablet 12/15/24 15:41 12/15/24 17:35 Senna/Docusate Sodium 1 Tablet PO 2 tablet BID PRN PRN Administration Constipation Sodium Chloride 10 - 40 ml 12/15/24 16:03 12/16/24 08:15 0.9% Saline Lock 10 Ml Syringe IV 10 ml UD PRN Administration SALINE FLUSH Tamsulosin HCl 0.4 mg 12/15/24 22:00 12/15/24 20:07 Tamsulosin Hcl 0.4 Mg Capsule PO 0.4 mg QHS [facility] Administration Tizanidine HCl 2 mg 12/15/24 15:41 Tizanidine Hcl 2 Mg Tablet PO Q8H PRN PRN muscle strain/spasms Trazodone HCl 100 mg 12/15/24 22:00 12/15/24 20:08 Trazodone 100 Mg Tablet PO 100 mg QHS [facility] Administration Tuberculin PPD 0.1 ml 12/23/24 10:00 Tuberculin,Purif.Prot.Deriv. 50 Tu/Ml Vial ID 12/23/24 10:01 X1 ONE Problem List Muscle spasm (Acute) Hypokalemia (Acute) Neuropathic pain (Acute) Hydronephrosis, left (Acute) Bacteremia (Acute) Debility (Acute) Complicated urinary tract infection (Acute) Neurogenic bladder (Acute) BPPV (benign paroxysmal positional vertigo) (Acute) Insomnia (Acute) Iron deficiency anemia (Acute) BPH (benign prostatic hyperplasia) (Acute) Essential (primary) hypertension (Acute) MUNA (acute kidney injury) (Acute) Vital Signs Temp Pulse Resp BP Pulse Ox O2 Del Method 97.9 F 80 18 115/77 97 Room Air 12/15/24 15:39 12/15/24 16:00 12/15/24 16:00 12/15/24 15:39 12/15/24 16:00 12/15/24 16:00 Oxygen Delivery Method Room Air Weight: 94.075 kg Body Mass Index (BMI) 29.0 Sodium 138 mmol/L (136-145) 12/16/24 05:06 Potassium 4.2 mmol/L (3.5-5.1) 12/16/24 05:06 Chloride 107 mmol/L (98-107) 12/16/24 05:06 Carbon Dioxide 22.0 mmol/L (21.0-32.0) 12/16/24 05:06 Anion Gap 9 (5-15) 12/16/24 05:06 BUN 17 mg/dL (7-18) 12/16/24 05:06 Creatinine 1.09 mg/dL (0.70-1.30) 12/16/24 05:06 Est GFR (MDRD) Af Amer 85 mL/min (>60) 12/16/24 05:06 Est GFR (MDRD) Non-Af 70 mL/min (>60) 12/16/24 05:06 BUN/Creatinine Ratio 15.6 RATIO (10-20) 12/16/24 05:06 Glucose 112 mg/dL (74-106) H 12/16/24 05:06 Assessment/Plan: 1. Pain: acetaminophen 1000 mg PO Q6H PRN pain (1-3), oxycodone 5 mg PO Q4H PRN pain (4-10), lidocaine 5% patch 2 patches topically daily. The patient has used 1 PRN dose of acetaminophen and 2 PRN doses of oxycodone so far this admission. Please continue to monitor pain levels, PRN medication usage, LFTs (AST/ALT = 11/11 U/L on 12/13/24), for constipation, respiratory depression, syncope/ataxia/falls, dizziness/drowsiness, and for rash/itching at lidocaine patch application site. 2. Bowel: senna/docusate 2 tablets PO BID PRN constipation. The patient has used 1 PRN dose of senna/docusate so far this admission, and the patient's last bowel movement was on 12/11/24. Please continue to monitor for bowel movements, PRN medication usage, constipation and diarrhea. 3. DVT prophylaxis: enoxaparin 40 mg SC daily. Please continue to monitor for s/s of a DVT such as pain/erythema/swelling in an extremity, renal function (serum creatinine = 1.09 mg/dL with creatinine clearance ~ 69 mL/min on 12/16/24), hemoglobin levels (Hgb = 11.6 g/dL on 12/16/24), platelet counts (Plt = 271 K/mm3 on 12/16/24), and for s/s of bleeding/excessive bruising. 4. Proteus mirabilis UTI/bacteremia: ceftriaxone 1 gram IV daily through 12/22/24. Please continue to monitor for s/s of infection such as fever (last temp = 97.5 F), chills, WBC counts (WBC = 7.2 K/mm3), and blood cultures (no new blood cultures). 5. Hypertension: amlodipine 5 mg PO daily. Please continue to monitor blood pressures (recent range = 103-125/64-87 mmHg), and for lower extremity edema. 6. Neuropathic pain: gabapentin 900 mg PO TID. Please continue to monitor for neuropathic pain, renal function (serum creatinine = 1.09 mg/dL with creatinine clearance ~ 69 mL/min on 12/16/24), for dizziness/drowsiness, and for lower extremity edema. 7. BPPV: meclizine 12.5 mg PO TID PRN dizziness. The patient has used 1 PRN dose of meclizine so far this admission. Please continue to monitor for PRN medication usage, dizziness, dry mouth, and dry eyes. 8. BPH/urinary retention: tamsulosin 0.4 mg PO daily. Please continue to monitor for urinary retention and for s/s of orthostasis. 9. Muscle spasms: tizanidine 2 mg PO Q8H PRN muscle spasms. The patient has not required any PRN doses of tizanidine so far this admission. Please continue to monitor for PRN medication usage and muscle spasms. 10. Iron deficiency anemia: ferrous sulfate 325 mg PO daily. Please continue to monitor hemoglobin levels (Hgb = 11.6 g/dL on 12/16/24), and iron levels (iron = 36 ug/dL on 05/10/23). 11. Hypokalemia: potassium chloride 20 mEq PO daily with a meal. Please continue to monitor potassium levels (K = 4.2 mmol/L on 12/16/24), and for GI distress with potassium chloride administration. 12.Skin irritation/tinea corporis: calmoseptine 1 application topically BID, nystatin powder topically BID. Please continue to monitor for skin irritation, and for resolution of tinea corporis. Assessment/Plan for indications treated with psychotropic medications: 1. Insomnia: trazodone 100 mg PO QHS. Please see provider not regarding stable chronic long-term use GDR not recommended. Please continue to monitor for insomnia, for drowsiness, dizziness and for s/s of serotonin syndrome. Medical chart and medication regimen reviewed. The following medication irregularities or issues were identified NA Date Date of Note: 12/16/24 Documented by User: Dr. Nhan White MD 12/17/24 07:02 TCU RX Drug Regimen Review Provider Comments Provider responsibility Provider Comments to Recommendations by Pharmacy Agree
--- NOTE | 2024-12-16 11:37 | NURSING ---
Dr. White gave new order 1) Consult Dr Slater on Wednesday12/18/24. Patient aware of new order.
[2024-12-16] MEDS: Ferrous Sulfate 325 MG Tablet PO (12:11)
[2024-12-16] MEDS: Tuberculin,Purif.prot.deriv. 50 TU/ML Vial 0.1 ML ID (12:13)
[2024-12-16] MEDS: Senna/Docusate Sodium 1 Tablet 2 TABLET PO ×2 (12:15→21:25)
[2024-12-16 21:15] VITALS: BP 125/80; PULSE 74
[2024-12-16] MEDS: traZODone 100 MG Tablet PO (21:19)
[2024-12-16] MEDS: Tamsulosin HCl 0.4 MG Capsule PO (21:20)
[2024-12-17] MEDS: Gabapentin 300 MG Capsule 900 MG PO ×3 (05:58→21:16)
--- NOTE | 2024-12-17 06:00 | NURSING ---
Addendum entered by Beatriz Chavez 12/17/24 08:32: CBC noted in error. Hgb stable and oncoming nurse to administer Lovenox dose this am. Original Note: Did not administer Lovenox at this time d/t significant drop in hgb from 12/14 to 12/16. Will report to oncoming nurse and continue to monitor.
[2024-12-17 10:13] VITALS: BP 105/76; PULSE 82; RESP 16; TEMP 36.7; O2SAT 95
[2024-12-17] MEDS: Potassium Chloride Oral Tablet 20 MEQ PO (10:16)
[2024-12-17] MEDS: Enoxaparin 40 MG/0.4 ML Syringe SC (10:16)
[2024-12-17] MEDS: Lidocaine 5% Patch 2 PATCH TOPICAL (10:16)
[2024-12-17] MEDS: Menthol/Lanolin/Calamine/Znox 113 GM Tube 1 APPLIC TOPICAL ×2 (10:16→21:16)
[2024-12-17] MEDS: Nystatin Powder 15gm Bottle 1 APPLIC TOPICAL ×2 (10:17→21:17)
[2024-12-17] MEDS: amLODIPine 5 MG Tablet PO (10:17)
[2024-12-17] MEDS: Ceftriaxone 1 GM/50 mL Premix Q24 IV (10:19)
[2024-12-17] MEDS: 0.9% Saline Lock 10 ML Syringe IV ×2 (10:19→21:15)
[2024-12-17] MEDS: Acetaminophen 500 MG Tablet 1000 MG PO (12:26)
[2024-12-17] MEDS: oxyCODONE 5 MG Tablet PO (12:26)
[2024-12-17] MEDS: Senna/Docusate Sodium 1 Tablet 2 TABLET PO ×2 (12:26→21:19)
[2024-12-17] MEDS: Ferrous Sulfate 325 MG Tablet PO (13:32)
--- NOTE | 2024-12-17 15:30 | NURSING ---
Patient states he hasn't had a bowel movement in 6 days and asking for something to help move his bowels. Call placed to Dr. White, new order received for PRN magnesium citrate and to schedule senna. VORB.
[2024-12-17] MEDS: Magnesium Citrate 300 ML PO (16:18)
[2024-12-17] MEDS: Tamsulosin HCl 0.4 MG Capsule PO (21:16)
[2024-12-17] MEDS: traZODone 100 MG Tablet PO (21:17)
[2024-12-18] MEDS: Gabapentin 300 MG Capsule 900 MG PO ×3 (05:18→21:31)
[2024-12-18] MEDS: Enoxaparin 40 MG/0.4 ML Syringe SC (05:19)
--- NOTE | 2024-12-18 08:48 | NURSING ---
Manager Content Note; Activity Asset: Donovan Zheng has returned to TCU for more therapy and prefers to be called Antonio Alvarez remains independent in his choice of daily activities. 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 He welcomes visits from the millroom supervisor and therapy dog when available. Staff will Continue to remind him of weekly activities and respect his right to say no.
[2024-12-18] MEDS: Lidocaine 5% Patch 2 PATCH TOPICAL (08:58)
[2024-12-18] MEDS: Potassium Chloride Oral Tablet 20 MEQ PO (08:59)
[2024-12-18] MEDS: Menthol/Lanolin/Calamine/Znox 113 GM Tube 1 APPLIC TOPICAL ×2 (08:59→21:23)
[2024-12-18] MEDS: amLODIPine 5 MG Tablet PO (08:59)
[2024-12-18] MEDS: Nystatin Powder 15gm Bottle 1 APPLIC TOPICAL ×2 (08:59→21:26)
[2024-12-18 09:00] VITALS: BP 121/78; PULSE 81; RESP 16; TEMP 36.7; O2SAT 95
[2024-12-18] MEDS: Senna/Docusate Sodium 1 Tablet 2 TABLET PO ×2 (09:03→21:26)
[2024-12-18] MEDS: Ceftriaxone 1 GM/50 mL Premix Q24 IV (09:15)
[2024-12-18] MEDS: Meclizine 12.5 MG Tablet PO (09:18)
--- NOTE | 2024-12-18 10:57 | NURSING ---
Call back from Dr. Slater's office, they report physician will not do SP cath, no reason given.
[2024-12-18] MEDS: Ferrous Sulfate 325 MG Tablet PO (11:53)
--- NOTE | 2024-12-18 12:05 | CASEMGMT ---
Social Work SW met with pt d/t readmission. No changes to assessment. Upon entry to room, pt repeatedly made statements about this worker being attractive. SW educated to [facility] NRD 12/20 and continued stay is not guaranteed with each review. Pt's goal is to return home alone. See SW assessment and past visit notes for details on concerns and barriers to DC. SW will follow and discuss alternative DC plans at POC meeting. Care Coordination program referral was made last visit [facility] to [facility]. RHEA provided pt with communication sheet and [facility] contact information to pursue further. Huyen Davis, [employer]
--- NOTE | 2024-12-18 12:17 | PCM.CONS.U ---
HPI Consult Data Date of Consult: 12/18/24 HPI Narrative Reason for Consultation: Chronic Dowling catheter HPI Narrative: MIROSLAVA PALACIO, is a 74 M who presents to rehab for strengthening and improvement he has a history of chronic debility following chronic weakness and debility. He was admitted to the hospital again again when they checked the urine it was infected like always since he has a chronic catheter he did have a TURP a long time ago he does not remember exactly when this was done by an outside urologist. Again I was consulted with regards to suprapubic catheter. In the situation a suprapubic catheter would not lower the risk of his infections or any other problems he can continue with chronic catheter. It does not look like a good candidate to learn self and catheterization. He can follow-up with the urologist he has been seen after discharge call me with questions. [facility] Medical History (Updated 12/15/24 @ 16:[address] Nhan White MD) Debility Intractable back pain Neuropathic pain of both legs Chronic indwelling Dowling catheter Unable to ambulate Back pain Chest pain Vision loss of right eye Anxiety Depression GERD (gastroesophageal reflux disease) Hypertension Right femoral fracture History of fractured rib (08/12/20) Anxiety Essential (primary) hypertension Hepatitis A Osteoarthritis Home Medications ?Medication ?Instructions ?Recorded ?Last Taken ?Type tamsulosin 0.4 mg capsule 0.4 mg PO QHS PROSTATE 03/11/23 12/04/24 History potassium chloride 20 mEq 20 meq PO DAILYCM supplement 30 03/07/24 12/05/24 Rx tablet,extended release(part/cryst) days #30 tabs ferrous sulfate 324 mg (65 mg 324 mg PO DAILY supplement 09/12/24 12/05/24 History iron) tablet,delayed release trazodone 100 mg tablet 100 mg PO QHS sleep 11/30/24 12/04/24 History acetaminophen 325 mg tablet 650 mg (2 x 325 mg) PO Q4H PRN PRN 12/05/24 12/05/24 Rx Fever, pain 1-08/31 #0 tabs amlodipine 5 mg tablet 5 mg PO DAILY BP #1 TAB 12/05/24 Unknown Rx gabapentin 300 mg capsule 900 mg (3 x 300 mg) PO TID Nerve 12/05/24 12/05/24 Rx pain #0 caps lidocaine 5 % topical patch 2 patch topical DAILY pain 12/05/24 12/05/24 History meclizine 12.5 mg tablet 12.5 mg PO TID PRN PRN Dizziness 12/05/24 12/03/24 Rx #0 tabs sennosides 8.6 mg-docusate sodium 2 tab PO BID PRN PRN Constipation 12/05/24 Unknown Rx 50 mg tablet (Stimulant Laxative #1 TAB Plus) tizanidine 2 mg tablet 2 mg PO Q8H PRN PRN muscle 12/05/24 12/04/24 Rx strain/spasms #0 tabs tolterodine 4 mg capsule,extended 4 mg PO DAILY Overactive bladder 12/05/24 12/05/24 Rx release 24 hr #0 caps ceftriaxone 1 gram solution for 1 g IM DAILY antiobiotic #1 ea 12/15/24 Unknown Rx injection oxycodone 5 mg tablet 5 mg PO Q4H PRN PRN Pain Score 12/15/24 Unknown Rx 4-10 3 days #10 tabs Allergy/AdvReac Type Severity Reaction Status Date / Time diltiazem (From Cardizem) AdvReac unknown Verified 12/12/24 18:00 losartan (From Hyzaar) AdvReac unknown Verified 12/12/24 18:00 metoprolol (From Lopressor) AdvReac unknown Verified 12/12/24 18:00 valsartan (From Diovan) AdvReac unknown Verified 12/12/24 18:00 Family History Mother Heart disease Cancer breast Sister Heart disease Father , in a train accident. No problems noted. Surgical History History of lumbar laminectomy for spinal cord decompression History of shoulder surgery History of elbow surgery History of hip replacement Social History household members: none Smoking Status: Former smoker quit date: 11/22/92 pack-years: 46 alcohol intake: former year quit: 1991 substance use type: does not use Lab / Micro Data 12/16/24 05:06 12/16/24 05:06
--- NOTE | 2024-12-18 13:58 | CHAPLAIN ---
Type of Pastoral Visit ___ Initial Visit ___ Follow-up Visit ___ On-call Visit ___ General Patient Visit ___ Spiritual Assessment ___ Family Conference ___ Bereavement ___ Rapid Response ___ Code Blue ___ Other (describe below) Pastoral Care Referral From ___ Patient ___ Family ___ Nurse ___ Physician ___ Improvement Manager ___ Parasitology Teacher ___ Other (describe below) Sacrament/Intervention ___ Active listening ___ Anointing ___ Oriental Orthodox ___ Bereavement ___ Communion ___ Ewelina exploration ___ ___ Life review ___ Prayer ___ Reconciliation ___ Sacrament of Sick ___ Supportive presence ___ Wedding ___ Other (describe below) Pastoral Comments follow up visit to this patient who remains upbeat and easy to talk with; pt continues to use humor and his ewelina to be resolute; pt asks this road marker about his own life and hobbies; pt asks about getting a shave and this question was taken to hursing;prayer given
--- NOTE | 2024-12-18 14:15 | NURSING ---
Dr. Slater up to see patient for consult- Not a candidate for suprapubic cath. Can follow up with urologist after discharge.
[2024-12-18 20:00] VITALS: PULSE 74; O2SAT 94
[2024-12-18] MEDS: Tamsulosin HCl 0.4 MG Capsule PO (21:26)
[2024-12-18] MEDS: traZODone 100 MG Tablet PO (21:26)
[2024-12-18] MEDS: 0.9% Saline Lock 10 ML Syringe IV (21:28)
[2024-12-19] MEDS: Gabapentin 300 MG Capsule 900 MG PO ×3 (05:44→21:13)
[2024-12-19] MEDS: Enoxaparin 40 MG/0.4 ML Syringe SC (05:44)
[2024-12-19 06:14] VITALS: PULSE 76; O2SAT 95
[2024-12-19] MEDS: oxyCODONE 5 MG Tablet PO ×2 (09:02→18:28)
[2024-12-19] MEDS: Lidocaine 5% Patch 2 PATCH TOPICAL (09:05)
[2024-12-19] MEDS: Potassium Chloride Oral Tablet 20 MEQ PO (09:05)
[2024-12-19] MEDS: Senna/Docusate Sodium 1 Tablet 2 TABLET PO (09:06)
[2024-12-19] MEDS: amLODIPine 5 MG Tablet PO (09:06)
[2024-12-19] MEDS: Nystatin Powder 15gm Bottle 1 APPLIC TOPICAL ×2 (09:07→21:14)
[2024-12-19] MEDS: Menthol/Lanolin/Calamine/Znox 113 GM Tube 1 APPLIC TOPICAL ×2 (09:08→21:14)
[2024-12-19 09:11] VITALS: BP 113/71; PULSE 78; RESP 18; O2SAT 94
[2024-12-19] MEDS: 0.9% Saline Lock 10 ML Syringe IV (09:52)
[2024-12-19] MEDS: Ceftriaxone 1 GM/50 mL Premix Q24 IV (09:58)
[2024-12-19] MEDS: 0.9% Normal Saline (100mL Bag) 100 ML 15 ML IV (09:59)
[2024-12-19 10:13] VITALS: BMI 28.9
[2024-12-19] MEDS: Ferrous Sulfate 325 MG Tablet PO (11:24)
--- NOTE | 2024-12-19 13:29 | CASEMGMT ---
Social Work Dtr lives in [place] and unable to provide copies of pt's advanced directives. Huyen Davis INTERNAL AUDIT DIRECTOR PROCEDURAL NURSE
[2024-12-19 14:59] VITALS: TEMP 36.6
[2024-12-19] MEDS: Acetaminophen 500 MG Tablet 1000 MG PO (18:29)
[2024-12-19] MEDS: traZODone 100 MG Tablet PO (21:14)
[2024-12-19] MEDS: Tamsulosin HCl 0.4 MG Capsule PO (21:14)
[2024-12-20] MEDS: Gabapentin 300 MG Capsule 900 MG PO ×3 (05:21→20:54)
[2024-12-20] MEDS: Enoxaparin 40 MG/0.4 ML Syringe SC (05:21)
[2024-12-20] MEDS: Nystatin Powder 15gm Bottle 1 APPLIC TOPICAL ×2 (09:38→20:55)
[2024-12-20] MEDS: Menthol/Lanolin/Calamine/Znox 113 GM Tube 1 APPLIC TOPICAL ×2 (09:38→20:55)
[2024-12-20] MEDS: Potassium Chloride Oral Tablet 20 MEQ PO (09:38)
[2024-12-20] MEDS: Lidocaine 5% Patch 2 PATCH TOPICAL (09:38)
[2024-12-20] MEDS: Senna/Docusate Sodium 1 Tablet 2 TABLET PO ×2 (09:39→20:54)
[2024-12-20] MEDS: amLODIPine 5 MG Tablet PO (09:39)
[2024-12-20] MEDS: 0.9% Saline Lock 10 ML Syringe IV (09:49)
[2024-12-20] MEDS: Ceftriaxone 1 GM/50 mL Premix Q24 IV (09:55)
[2024-12-20 10:04] VITALS: BP 106/77; PULSE 82; RESP 18; O2SAT 96
--- NOTE | 2024-12-20 11:11 | CASEMGMT ---
BIMS () and PHQ2 (1) completed on this date for MDS assessment. MARGARITA Payan
[2024-12-20] MEDS: Ferrous Sulfate 325 MG Tablet PO (11:38)
[2024-12-20] MEDS: Meclizine 12.5 MG Tablet PO (11:38)
[2024-12-20 13:42] VITALS: TEMP 37.1
[2024-12-20 14:30] VITALS: PULSE 82; RESP 16; O2SAT 96
--- NOTE | 2024-12-20 15:02 | CASEMGMT ---
Social Work IDT met with patient at bedside and dtr, Ailin, via conference call for care plan meeting. Discussed patient's progress in PT/OT/SN. [facility] [place] [facility] and continued stay is not guaranteed with each review. Team discussed concerns with pt returning home alone both at this LOF and if he physically improves to a mod I level. Pt was not caring for self properly prior. SW explained if pt returns home, he would need assistance with laundry, housecleaning, showers and med management. However, currently pt is a two-person assist. SW explained it is unknown how long the insurance will approve for pt to remain in TCU, and to ensure a safe and smooth DC, SW requested the start of active discharge planning. SW explained to pt and dtr in detail the three options: home with nonskilled DIRECTOR MEDICAL ECONOMICS 14/06 at an OOP cost - pending LOF, and skilled HHC; AL with skilled HHC - pending LOF; SNF at an OOP cost, part B therapies. Pt confirmed he has funds to initially pay for care, but not long-term. SW educated to Medicaid in a SNF as an option once funds are properly liquidated. SW explained the goal for home or AL or one person assist, then pending ADL assistance. SW offered to pursue multiple discharge plans until a DC date is given and then can assess pt's LOF. Pt/dtr agreed. Dtr discussed having pt move to [place] to be closer to her, but agreed pt is not at a level he can travel at this time. Dtr inquired about pt's cognitive abilities to make this decision. SW noted observed pt's cognitive change in this admission compared to last admission, but also, a testament to living conditions at home. SW placed ST consult to further assess and the findings will play a role in DC recommendations. However, pt can choose to leave TCU or another facility at anytime or choose to go home against IDT recommendations. RHEA inquired about advanced directives to dtr. Dtr stated she does have the paperwork and is pt's HCPOA. SW obtained dtr's email address to send resources but to retrieve pt's advanced directives. Dtr provided. SW to summarize conversation in email and encouraged pt/dtr to further discuss options. SW to follow up with plan and assist with DC coordination. Dtr appreciative. SW will continue to follow. - ST order entered and hand off given to CONTRACT CLERK Email sent to dtr with resources and summary of above. Huyen Davis, BARROW WORKER HELPER MARKETING STRATEGIST
[2024-12-20] MEDS: traZODone 100 MG Tablet PO (20:54)
[2024-12-20] MEDS: tiZANidine HCl 2 MG Tablet PO (20:55)
[2024-12-20] MEDS: Tamsulosin HCl 0.4 MG Capsule PO (20:56)
[2024-12-21] MEDS: Gabapentin 300 MG Capsule 900 MG PO ×3 (05:34→20:48)
[2024-12-21] MEDS: Enoxaparin 40 MG/0.4 ML Syringe SC (05:34)
[2024-12-21] MEDS: Menthol/Lanolin/Calamine/Znox 113 GM Tube 1 APPLIC TOPICAL ×2 (09:06→20:48)
[2024-12-21] MEDS: Lidocaine 5% Patch 2 PATCH TOPICAL (09:07)
[2024-12-21] MEDS: Nystatin Powder 15gm Bottle 1 APPLIC TOPICAL ×2 (09:08→20:48)
[2024-12-21] MEDS: amLODIPine 5 MG Tablet PO (09:08)
[2024-12-21] MEDS: Potassium Chloride Oral Tablet 20 MEQ PO (09:08)
[2024-12-21] MEDS: Senna/Docusate Sodium 1 Tablet 2 TABLET PO ×2 (09:10→20:48)
[2024-12-21 09:17] VITALS: BP 116/73; PULSE 82; RESP 18; O2SAT 93
[2024-12-21] MEDS: 0.9% Saline Lock 10 ML Syringe IV ×2 (09:21→11:32)
[2024-12-21] MEDS: Ceftriaxone 1 GM/50 mL Premix Q24 IV (09:24)
[2024-12-21] MEDS: Ferrous Sulfate 325 MG Tablet PO (11:33)
[2024-12-21 15:20] VITALS: PULSE 78; RESP 18; O2SAT 94
[2024-12-21 16:00] VITALS: TEMP 36.8
--- NOTE | 2024-12-21 16:27 | NURSING ---
PT REFUSING TO GET OUT OF BED AND SIT IN RECLINER FOR ANY AMOUNT OF TIME. EDUCATED PT ON LYING IN BED ALL THE TIME. PT STATED I DO IT AT HOME ALL THE TIME BIA JUST TIRED. ALSO HAD A TALK WITH PT ABOUT HIS INAPPROPRIATE COMMENTS TO FEMALE STAFF, SPECIALLY THE YOUNGER ONES. PT STATED OK,BIA SORRY BIA JUST JOKING.
[2024-12-21] MEDS: traZODone 100 MG Tablet PO (20:48)
[2024-12-21] MEDS: Tamsulosin HCl 0.4 MG Capsule PO (20:48)
[2024-12-21] MEDS: tiZANidine HCl 2 MG Tablet PO (20:50)
[2024-12-22] MEDS: oxyCODONE 5 MG Tablet PO ×2 (05:23→15:50)
[2024-12-22] MEDS: Gabapentin 300 MG Capsule 900 MG PO ×3 (05:23→22:13)
[2024-12-22] MEDS: Enoxaparin 40 MG/0.4 ML Syringe SC (05:23)
[2024-12-22 06:02] LABS: Absolute Lymphocyte Count 1.64 X10^3/uL (0.83-4.51); Absolute Neutrophil Count 4.3 X10^3/uL (2.0-7.7); Basophil# 0.07 X10^3/uL; Eosinophil# 0.37 X10^3/uL; Eosinophils% 5.1 % (0-5); Hematocrit 37.9 % (40-54); Lymphocyte # 1.64 X10^3/ul (0.83-4.51); Lymphocyte % 22.8 % (19-41); Mean Corp Hgb Conc 31.7 g/dL (32-36); Mean Corpuscular Hgb 29.3 pg (27.0-32.0); Mean Corpuscular Volume 92.4 fL (80-94); Mean Platelet Vol. 9.1 fl (6.2-12.0); Monocyte# 0.76 X10^3/uL; Monocyte% 10.6 % (0-10); NRBC Flagged by Analyzer 0 % (0-5); Neutrophil # 4.29 X10^3/uL (2.7-7.7); Neutrophil % 59.7 % (47-70); Platelet Count 362 K/mm3 (150-450); RBC Distribution Width CV 15.1 % (11.6-14.6); White Blood Count 7.2 K/mm3 (4.4-11.0)
[2024-12-22 06:47] LABS: Anion Gap 6 (5-15); BUN 15 mg/dL (7-18); BUN/Creat Ratio 14.3 RATIO (10-20); Chloride 106 mmol/L (98-107); Creatinine, Serum 1.05 mg/dL (0.70-1.30); EST Glomerular Filtration Rate 73 mL/min (>60); Est Glom Filt Rate - Afr Amer 89 mL/min (>60); Estimated Creatinine Clearance 71.23 ml/min; Glucose 102 mg/dL (74-106); Potassium 4.2 mmol/L (3.5-5.1); Sodium Level 137 mmol/L (136-145)
[2024-12-22 08:00] VITALS: BP 101/65; PULSE 78; RESP 18; TEMP 36.8; O2SAT 92
--- NOTE | 2024-12-22 08:15 | NURSING ---
Offered covid vaccine on 12/18/24, VIS provided. Resident declines.
[2024-12-22] MEDS: Meclizine 12.5 MG Tablet PO ×2 (08:17→14:45)
[2024-12-22] MEDS: Potassium Chloride Oral Tablet 20 MEQ PO (08:17)
[2024-12-22] MEDS: amLODIPine 5 MG Tablet PO (08:17)
[2024-12-22] MEDS: Senna/Docusate Sodium 1 Tablet 2 TABLET PO ×2 (08:17→22:13)
[2024-12-22] MEDS: Nystatin Powder 15gm Bottle 1 APPLIC TOPICAL ×2 (08:18→22:14)
[2024-12-22] MEDS: Menthol/Lanolin/Calamine/Znox 113 GM Tube 1 APPLIC TOPICAL ×2 (08:18→22:13)
[2024-12-22] MEDS: Lidocaine 5% Patch 2 PATCH TOPICAL (08:18)
[2024-12-22] MEDS: Ceftriaxone 1 GM/50 mL Premix Q24 IV (08:21)
--- NOTE | 2024-12-22 09:47 | NURSING ---
Mower Operator Note; MDS for 12/22/2024 Complete
[2024-12-22] MEDS: Ferrous Sulfate 325 MG Tablet PO (13:01)
[2024-12-22 20:45] VITALS: PULSE 90; O2SAT 96
[2024-12-22] MEDS: traZODone 100 MG Tablet PO (22:13)
[2024-12-22] MEDS: Tamsulosin HCl 0.4 MG Capsule PO (22:13)
[2024-12-22] MEDS: tiZANidine HCl 2 MG Tablet PO (22:13)
[2024-12-23] MEDS: Enoxaparin 40 MG/0.4 ML Syringe SC (05:43)
[2024-12-23] MEDS: Gabapentin 300 MG Capsule 900 MG PO ×3 (05:43→22:25)
[2024-12-23] MEDS: amLODIPine 5 MG Tablet PO (08:44)
[2024-12-23] MEDS: Potassium Chloride Oral Tablet 20 MEQ PO (08:44)
[2024-12-23] MEDS: Senna/Docusate Sodium 1 Tablet 2 TABLET PO ×2 (08:44→22:21)
[2024-12-23] MEDS: Lidocaine 5% Patch 2 PATCH TOPICAL (08:44)
[2024-12-23] MEDS: Menthol/Lanolin/Calamine/Znox 113 GM Tube 1 APPLIC TOPICAL ×2 (08:48→22:21)
[2024-12-23] MEDS: Nystatin Powder 15gm Bottle 1 APPLIC TOPICAL ×2 (08:48→22:22)
[2024-12-23 11:08] VITALS: BP 129/83; PULSE 86; RESP 17; TEMP 37; O2SAT 96
[2024-12-23] MEDS: Tuberculin,Purif.prot.deriv. 50 TU/ML Vial 0.1 ML ID (11:33)
[2024-12-23] MEDS: Ferrous Sulfate 325 MG Tablet PO (11:35)
[2024-12-23] MEDS: 0.9% Saline Lock 10 ML Syringe IV (13:22)
[2024-12-23] MEDS: tiZANidine HCl 2 MG Tablet PO ×2 (13:28→22:20)
[2024-12-23] MEDS: traZODone 100 MG Tablet PO (22:21)
[2024-12-23] MEDS: Tamsulosin HCl 0.4 MG Capsule PO (22:21)
[2024-12-24] MEDS: oxyCODONE 5 MG Tablet PO (02:32)
[2024-12-24] MEDS: Enoxaparin 40 MG/0.4 ML Syringe SC (05:58)
[2024-12-24] MEDS: Gabapentin 300 MG Capsule 900 MG PO ×3 (05:58→21:07)
[2024-12-24] MEDS: tiZANidine HCl 2 MG Tablet PO ×2 (06:02→21:07)
[2024-12-24] MEDS: 0.9% Saline Lock 10 ML Syringe IV (06:04)
[2024-12-24] MEDS: Potassium Chloride Oral Tablet 20 MEQ PO (09:44)
[2024-12-24] MEDS: Lidocaine 5% Patch 2 PATCH TOPICAL (09:45)
[2024-12-24] MEDS: amLODIPine 5 MG Tablet PO (09:45)
[2024-12-24] MEDS: Menthol/Lanolin/Calamine/Znox 113 GM Tube 1 APPLIC TOPICAL ×2 (09:45→21:09)
[2024-12-24] MEDS: Senna/Docusate Sodium 1 Tablet 2 TABLET PO ×2 (09:45→21:07)
[2024-12-24] MEDS: Nystatin Powder 15gm Bottle 1 APPLIC TOPICAL ×2 (09:46→21:08)
[2024-12-24] MEDS: Ferrous Sulfate 325 MG Tablet PO (12:03)
[2024-12-24] MEDS: Acetaminophen 500 MG Tablet 1000 MG PO (12:05)
[2024-12-24 16:00] VITALS: BP 109/71; PULSE 74; RESP 16; TEMP 36.9; O2SAT 95
[2024-12-24] MEDS: traZODone 100 MG Tablet PO (21:09)
[2024-12-24] MEDS: Tamsulosin HCl 0.4 MG Capsule PO (21:09)
[2024-12-25] MEDS: oxyCODONE 5 MG Tablet PO ×2 (01:22→21:20)
[2024-12-25] MEDS: Gabapentin 300 MG Capsule 900 MG PO ×3 (05:46→21:20)
[2024-12-25] MEDS: Enoxaparin 40 MG/0.4 ML Syringe SC (05:46)
[2024-12-25] MEDS: tiZANidine HCl 2 MG Tablet PO (05:46)
--- NOTE | 2024-12-25 05:52 | NURSING ---
Confidential vm left for SW per pt. request. Patient requesting information regarding discharge and wishes to seek snf placement.
--- NOTE | 2024-12-25 05:58 | NURSING ---
Refuses scds at this time despite education
--- NOTE | 2024-12-25 06:34 | NURSING ---
increased sediment observed to urine, hancock cath patent draining via gravity. Written communication left for Dr. White
[2024-12-25 08:00] VITALS: BP 106/72; PULSE 75; RESP 18; O2SAT 94
[2024-12-25] MEDS: Meclizine 12.5 MG Tablet PO (08:15)
[2024-12-25] MEDS: Lidocaine 5% Patch 2 PATCH TOPICAL (08:15)
[2024-12-25] MEDS: Potassium Chloride Oral Tablet 20 MEQ PO (08:15)
[2024-12-25] MEDS: Senna/Docusate Sodium 1 Tablet 2 TABLET PO ×2 (08:15→21:07)
[2024-12-25] MEDS: amLODIPine 5 MG Tablet PO (08:15)
[2024-12-25] MEDS: Nystatin Powder 15gm Bottle 1 APPLIC TOPICAL ×2 (08:16→21:09)
[2024-12-25] MEDS: Menthol/Lanolin/Calamine/Znox 113 GM Tube 1 APPLIC TOPICAL ×2 (08:16→21:06)
[2024-12-25] MEDS: Ascorbic Acid 500 MG Tablet PO ×2 (08:48→17:26)
[2024-12-25] MEDS: Methenamine Hippurate 1 GM Tablet PO ×2 (08:49→21:07)
--- NOTE | 2024-12-25 09:20 | NURSING ---
New orders received from Dr. White- 1) Vitamin C 500mg BID 2) Hiprex 1gm- BID. 3) Irrigate hancock cath with 60cc of sterile water PRN. Patient aware of new orders.
[2024-12-25] MEDS: Ferrous Sulfate 325 MG Tablet PO (11:58)
--- NOTE | 2024-12-25 15:56 | CASEMGMT ---
Social Work SW spoke with pt at bedside per his request to discuss DC options. SW explained current IDT recommendations are for pt to not return home alone, and due to sometimes needing two person assist, along with 24/7 care, likely not able to hire caregivers for homegoing. Recommending SNF at DC, until/if pt can return home. Pt inquired about AL. SW educated to AL as a potential possibility, though, the CUSTODIAL would be the determining factor on if pt is appropriate for that level of care. Depending on level care, it may be more cost effective than a SNF. However, pt would need to furnish the room and given his dtr lives in [place], unsure who could assist pt. Pt unsure as well. SW continued answering questions and explaining the recommendations and differences of lve lof care. Though, pt having difficulty comprehending the information. Pt did accept a list of [facility] as SW offered to make referrals to see if ALs determine his needs can be met in their facility. Pt appreciative. - Received call from pt's dtr, requesting to speak with the nurse's station. While dtr was on the phone, SW inquired about further discharge planning. Dtr did not have any further decision, stating she has not had time to talk to her dad since the POC. Dtr expressed concern with pt keeping his current apartment and getting that rent paid timely. Dtr inquired if this worker knew the landlord to call. SW denied, but suggested dtr to research the apt's phone number, ask of the landlord, explain pt's current situation, and coordinate with the outcome. Dtr expressed understanding. Dtr stated she will call back at a later time to talk with pt's nurse. - SW received call from pt's friend, Jocelin Macedo, who pt gave permission for this worker to speak with her about DC planning. Jocelin Macedo stated she is longtime family friend and assists pt locally since dtr is out of state. Friend requested explanation to pt's DC planning and his options as pt is having difficulty understanding. SW explained the conversation held with pt earlier, but agreed, he was challenged by the information. SW reviewed all the options in detail. Friend expressed understanding to recommendations of a facility, and it being more cost effective, though wants the pt to make that decision. Friend asked about timeframe. SW educated to [facility] insurance update 12/27, with a 3-day notice for a DC date. Some ALFs can accommodate an quick admission, others cannot; but SNFs can. Friend expressed understanding and plans to visit pt this evening, call the dtr, and discuss options, then notify this worker tomorrow morning. SW appreciative. Will continue to follow. Huyen Davis IMPROVEMENT DIRECTOR BEER MERCHANT
--- NOTE | 2024-12-25 17:33 | NURSING ---
New order received from Dr. White 1) Arthritis pain compound cream- 2 clicks BID. Patient aware of new order.
[2024-12-25 20:00] VITALS: PULSE 78; O2SAT 96
[2024-12-25] MEDS: traZODone 100 MG Tablet PO (21:07)
[2024-12-25] MEDS: Tamsulosin HCl 0.4 MG Capsule PO (21:07)
[2024-12-25] MEDS: Arthritis Pain Compound 60 CLICK TUBE TOPICAL (21:13)
[2024-12-26] MEDS: Gabapentin 300 MG Capsule 900 MG PO ×3 (05:37→21:19)
[2024-12-26] MEDS: Enoxaparin 40 MG/0.4 ML Syringe SC (05:38)
[2024-12-26 06:47] VITALS: PULSE 82; O2SAT 93
[2024-12-26] MEDS: Ascorbic Acid 500 MG Tablet PO ×2 (08:33→17:11)
[2024-12-26] MEDS: Lidocaine 5% Patch 2 PATCH TOPICAL (08:33)
[2024-12-26] MEDS: Potassium Chloride Oral Tablet 20 MEQ PO (08:33)
[2024-12-26] MEDS: Arthritis Pain Compound 60 CLICK TUBE TOPICAL ×2 (08:34→21:22)
[2024-12-26] MEDS: Menthol/Lanolin/Calamine/Znox 113 GM Tube 1 APPLIC TOPICAL ×2 (08:34→21:23)
[2024-12-26] MEDS: Methenamine Hippurate 1 GM Tablet PO ×2 (08:34→21:20)
[2024-12-26] MEDS: Nystatin Powder 15gm Bottle 1 APPLIC TOPICAL ×2 (08:35→21:24)
[2024-12-26] MEDS: amLODIPine 5 MG Tablet PO (08:35)
[2024-12-26] MEDS: Senna/Docusate Sodium 1 Tablet 2 TABLET PO (08:35)
[2024-12-26 08:43] VITALS: BP 116/81; PULSE 75; RESP 18; O2SAT 94
[2024-12-26] MEDS: Ferrous Sulfate 325 MG Tablet PO (11:11)
[2024-12-26] MEDS: oxyCODONE 5 MG Tablet PO ×2 (11:14→21:20)
[2024-12-26 11:36] VITALS: BMI 28.1
--- NOTE | 2024-12-26 12:34 | CASEMGMT ---
Social Work SW received call from pt's dtr updating on plan for SNF at [place]. However, within the next 1-2 months, the dtr plans to move pt to [place] in a SNF. Currently, the preference is [facility]. - RHEA sent referral via Mar[facility]. - [facility] can accept at time of DC, requesting 30 days of payment up front. - RHEA phoned dtr to update. Dtr appreciative. Huyen Davis NEONATAL INTENSIVE CARE UNIT NURSE BINGO FLOATER
[2024-12-26 16:00] VITALS: TEMP 36.8
[2024-12-26] MEDS: Meclizine 12.5 MG Tablet PO (17:18)
[2024-12-26] MEDS: Tamsulosin HCl 0.4 MG Capsule PO (21:20)
[2024-12-26] MEDS: traZODone 100 MG Tablet PO (21:20)
[2024-12-27] MEDS: Enoxaparin 40 MG/0.4 ML Syringe SC (05:26)
[2024-12-27] MEDS: Gabapentin 300 MG Capsule 900 MG PO ×3 (05:26→21:01)
[2024-12-27] MEDS: Lidocaine 5% Patch 2 PATCH TOPICAL (09:17)
[2024-12-27] MEDS: Potassium Chloride Oral Tablet 20 MEQ PO (09:18)
[2024-12-27] MEDS: Arthritis Pain Compound 60 CLICK TUBE TOPICAL (09:19)
[2024-12-27] MEDS: Ascorbic Acid 500 MG Tablet PO ×2 (09:19→17:36)
[2024-12-27] MEDS: Menthol/Lanolin/Calamine/Znox 113 GM Tube 1 APPLIC TOPICAL ×2 (09:19→21:02)
[2024-12-27] MEDS: Nystatin Powder 15gm Bottle 1 APPLIC TOPICAL ×2 (09:20→21:02)
[2024-12-27] MEDS: Senna/Docusate Sodium 1 Tablet 2 TABLET PO (09:20)
[2024-12-27] MEDS: amLODIPine 5 MG Tablet PO (09:20)
[2024-12-27] MEDS: Methenamine Hippurate 1 GM Tablet PO ×2 (09:20→21:01)
[2024-12-27] MEDS: tiZANidine HCl 2 MG Tablet PO (09:23)
[2024-12-27 09:29] VITALS: BP 106/73; PULSE 83; RESP 16; O2SAT 93
--- NOTE | 2024-12-27 09:30 | NURSING ---
AID CAME TO THIS NURSE AND STATED PT STATED HIS GROIN WAS ITCHY AND WANTED IT WASHED AID STATED SHE ASKED PT IF HE COULD WASH THAT AREA AND PT STATED YES BUT I NEED YOU TO DO IT. OTHER AID IN ROOM WASHED AND POWDERED GROIN. THIS NURSE WALKED IN ROOM AND PT STATED THAT HE ASKED THE AID TO WASH HIS GROIN AND SHE DIDNT DO IT. THIS NURSE STATED I KNOW THE OTHER AID DID WASH AND POWERED YOUR GROIN. ASKED PT CAN YOU DO IT? PT STATED YES BUT,THIS NURSE STATED TO PT THAT IT IS PART OF HIS THERAPY AND HE CAN WASH HIS PRIVATES CAUSE I HAVE SEEN HIM DO IT BEFORE AND WHERE EVER HE GOES HE WILL HAVE TO DO IT HIS SELF AND NOT PUT THE GIRLS IN A UNCOMFORTABLE SITUATION. PT STATED OK. RN AWARE
--- NOTE | 2024-12-27 09:49 | NURSING ---
SEEN BLOOD IN PT STOOL. NOTIFIED AND NEW ORDER FOR STOOL SAMPLE. RN AWARE
--- NOTE | 2024-12-27 10:16 | MDS.RN ---
Information for the MDS was obtained from review of the clinical record, interview of resident, staff, and direct observation of resident?s care.
--- NOTE | 2024-12-27 11:29 | NURSING ---
PT POSITIVE FOR BLOOD IN STOOL, NOTIFIED AND NEW ORDER TO CONSULT . NOTIFIED BY RAJESH. RN AWARE. PT AWARE.
[2024-12-27] MEDS: Ferrous Sulfate 325 MG Tablet PO (11:35)
[2024-12-27 13:21] VITALS: TEMP 36.8
--- NOTE | 2024-12-27 13:27 | EX.PCM.CON.G ---
HPI Consult Data Date of Consult: 12/27/24 HPI Narrative Reason for Consultation: Anemia and fecal occult positive stools HPI Narrative: 74 y/o M recently discharged to TCU 12/05/2024 following treatment and evaluation for intractable back pain, chronic lower extremity neuropathy as well as severe protein calorie malnutrition. He re-presented to the [facility] ED on 12/12/2024 with history of onset nausea and emesis with lightheadedness and dizziness in addition to chills. He also noted generalized abdominal discomfort but no severe or focal pain. Workup in the ED included T97.5 Temporally, heart rate 80, BP 123/79, respiratory rate 16, 93% on room air with most recent repeat vitals T98.6 Temporally, heart rate 100, BP 135/84, respiratory rate 29, 95% on room air, CBC with WBC 16.3, hemoglobin 14.3, platelet 286 with left shift, unremarkable coags CMP with BUN/creatinine 28/1.43, GFR 51, lactic acid 1.9, hepatic profile unremarkable urine kathleen/cloudy, specific gravity 1.010, protein 100, occult blood 250, positive nitrite, leukocyte esterase 500 with greater than 100 urine RBCs, urine WBCs 10-25 with only 1+ urine bacteria noted, CT abdomen and pelvis with a left-sided moderate hydronephrosis, colonic diverticulosis but no evidence of any obstruction. He was treated for UTI. He was also noted to have decreasing hemoglobin from 14 down to 10. His stools were checked and are positive for blood. He has been on iron therapy. [facility] Medical History Debility Intractable back pain Neuropathic pain of both legs Chronic indwelling Hancock catheter Unable to ambulate Back pain Chest pain Vision loss of right eye Anxiety Depression GERD (gastroesophageal reflux disease) Hypertension Right femoral fracture History of fractured rib (08/12/20) Anxiety Essential (primary) hypertension Hepatitis A Osteoarthritis Home Medications ?Medication ?Instructions ?Recorded ?Last Taken ?Type tamsulosin 0.4 mg capsule 0.4 mg PO QHS PROSTATE 03/11/23 12/27/24 History potassium chloride 20 mEq 20 meq PO DAILYCM supplement 30 03/07/24 12/27/24 Rx tablet,extended release(part/cryst) days #30 tabs ferrous sulfate 324 mg (65 mg 324 mg PO DAILY supplement 09/12/24 12/27/24 History iron) tablet,delayed release trazodone 100 mg tablet 100 mg PO QHS sleep 11/30/24 12/27/24 History acetaminophen 325 mg tablet 650 mg (2 x 325 mg) PO Q4H PRN PRN 12/05/24 12/05/24 Rx Fever, pain 1-08/31 #0 tabs amlodipine 5 mg tablet 5 mg PO DAILY BP #1 TAB 12/05/24 12/28/24 Rx gabapentin 300 mg capsule 900 mg (3 x 300 mg) PO TID Nerve 12/05/24 12/27/24 Rx pain #0 caps lidocaine 5 % topical patch 2 patch topical DAILY pain 12/05/24 12/27/24 History meclizine 12.5 mg tablet 12.5 mg PO TID PRN PRN Dizziness 12/05/24 12/27/24 Rx #0 tabs sennosides 8.6 mg-docusate sodium 2 tab PO BID PRN PRN Constipation 12/05/24 Unknown Rx 50 mg tablet (Stimulant Laxative #1 TAB Plus) tizanidine 2 mg tablet 2 mg PO Q8H PRN PRN muscle 12/05/24 12/04/24 Rx strain/spasms #0 tabs tolterodine 4 mg capsule,extended 4 mg PO DAILY Overactive bladder 12/05/24 12/05/24 Rx release 24 hr #0 caps ceftriaxone 1 gram solution for 1 g IM DAILY antiobiotic #1 ea 12/15/24 Unknown Rx injection oxycodone 5 mg tablet 5 mg PO Q4H PRN PRN Pain Score 12/15/24 12/27/24 Rx 4-10 3 days #10 tabs Allergy/AdvReac Type Severity Reaction Status Date / Time diltiazem (From Cardizem) AdvReac unknown Verified 12/12/24 18:00 losartan (From Hyzaar) AdvReac unknown Verified 12/12/24 18:00 metoprolol (From Lopressor) AdvReac unknown Verified 12/12/24 18:00 valsartan (From Diovan) AdvReac unknown Verified 12/12/24 18:00 Family History Mother Heart disease Cancer breast Sister Heart disease Father , in a train accident. No problems noted. Surgical History History of lumbar laminectomy for spinal cord decompression History of shoulder surgery History of elbow surgery History of hip replacement Social History household members: none Smoking Status: Former smoker quit date: 11/22/92 pack-years: 46 alcohol intake: former year quit: 1991 substance use type: does not use ROS Constitutional Constitutional: Denies fatigue, fever(s), poor appetite, weight gain or weight loss Gastrointestinal Gastrointestinal: Denies belching, bloating, change in bowel habits, change in stool character, chewing difficulty, coffee ground emesis, constipation, cramping, diarrhea, dyspepsia, dysphagia, early satiety, excessive flatus, fecal incontinence, heartburn, hematemesis, hematochezia, hemorrhoids, loose stools, melena, nausea, odynophagia, rectal bleeding, tenesmus, vomiting or weight changes Physical Exam Const alert, oriented x3, no apparent distress and healthy appearing General Appearance: cooperative GI normal to inspection, nondistended, normoactive bowel sounds, soft to palpation, non-tender and non-distended Percussion: normal to percussion Rectal Exam: deferred Lab / Micro Data 12/22/24 05:11 12/22/24 05:11 Micro: Microbiology 12/27/24 09:40 Stool Stool Occult Blood (EVANGELISTA) - Final Occult Blood Positive Assessment & Plan Assessment/Plan (1) Complicated urinary tract infection: (2) Vomiting: (3) Abdominal pain: (4) Anemia: PLAN: Plan 74 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 ED on 12/12/2024 with history of onset nausea and emesis with lightheadedness and dizziness. That is a lot better. However he has had decrease in hemoglobin and his stools with fecal positive. Differential diagnosis does include peptic ulcer disease, angiodysplasia, neoplasia, gastric antral vascular ectasia, Ronnie's erosions. He should undergo an upper and lower endoscopy to evaluate upper lower GI tract. He was explained alternatives, risk and benefits include not withstanding bleeding, infection, sepsis, perforation, need for emergent urgent . He will have an ASA of 3. Charges/Coding Visit Charges Inpatient E&M: 33259 SNF Init L2
[2024-12-27] MEDS: Bisacodyl 5 MG Tablet 20 MG PO (14:30)
[2024-12-27 14:35] VITALS: PULSE 83; RESP 18; O2SAT 94
[2024-12-27] MEDS: Polyethylene Glycol 3350 BOWEL PREP PO (14:48)
--- NOTE | 2024-12-27 15:46 | NURSING ---
Addendum entered by Erlin Allen 12/27/24 18:44: PT DAUGHTER CALLED AND UPDATED ON HER DADS PROCEDURE TOMARROW. Original Note: FRIEND IN TO SEE PT. PT WILL HAVE A LOWER SCOPE ON 12/28/24 DUE TO BLOOD IN STOOL. ANY DIABETIC MEDS AND LOVENOX ON HOLD. CLEAR LIQUID DIET TONIGHT 12/27/24 AND NPO AT 12 MIDNIGHT [12/28/24 00:01]. RN AND AWARE.
[2024-12-27] MEDS: Tamsulosin HCl 0.4 MG Capsule PO (21:01)
[2024-12-27] MEDS: oxyCODONE 5 MG Tablet PO (21:01)
[2024-12-27] MEDS: traZODone 100 MG Tablet PO (21:01)
[2024-12-28] MEDS: Gabapentin 300 MG Capsule 900 MG PO ×3 (06:26→20:33)
[2024-12-28 09:57] VITALS: BP 138/80; PULSE 72; RESP 16; TEMP 36.5; O2SAT 98
[2024-12-28] MEDS: Menthol/Lanolin/Calamine/Znox 113 GM Tube 1 APPLIC TOPICAL ×2 (10:01→20:32)
[2024-12-28] MEDS: Nystatin Powder 15gm Bottle 1 APPLIC TOPICAL ×2 (10:01→20:36)
[2024-12-28] MEDS: amLODIPine 5 MG Tablet PO (12:08)
[2024-12-28 12:10] VITALS: BP 117/77; PULSE 72; RESP 16
[2024-12-28 12:18] VITALS: BP 138/88; PULSE 72; RESP 16; TEMP 36.5; O2SAT 98; BMI 28.1
--- NOTE | 2024-12-28 12:42 | NURSING ---
dr friend called reporting that he was doing colonoscopy and wanting to know if pt stool clear, RESIDENTIAL ENERGY AUDITOR reported liquid brown color. new order to administer x2 SSE.
--- NOTE | 2024-12-28 13:08 | NURSING ---
pt off unit to endo for colonoscopy and EGD at this time via bed
--- NOTE | 2024-12-28 13:09 | NURSING ---
Resident off floor to endoscopy.
--- NOTE | 2024-12-28 14:58 | NURSING ---
pt returned to floor, diet changed, pt hungry
[2024-12-28 15:18] VITALS: BP 116/83; PULSE 72; RESP 16; TEMP 36.2; O2SAT 94
[2024-12-28] MEDS: Potassium Chloride Oral Tablet 20 MEQ PO (15:21)
[2024-12-28] MEDS: Methenamine Hippurate 1 GM Tablet PO ×2 (15:21→20:34)
[2024-12-28] MEDS: Ascorbic Acid 500 MG Tablet PO ×2 (15:21→17:12)
[2024-12-28] MEDS: Ferrous Sulfate 325 MG Tablet PO (15:22)
[2024-12-28] MEDS: Meclizine 12.5 MG Tablet PO (15:25)
--- NOTE | 2024-12-28 19:51 | NURSING ---
IV removed from right AC per patient request. no active drainage noted, dry dressing applied.
[2024-12-28] MEDS: Tamsulosin HCl 0.4 MG Capsule PO (20:33)
[2024-12-28] MEDS: traZODone 100 MG Tablet PO (20:33)
[2024-12-29] MEDS: oxyCODONE 5 MG Tablet PO ×2 (03:03→13:05)
[2024-12-29] MEDS: tiZANidine HCl 2 MG Tablet PO (03:04)
[2024-12-29 06:05] LABS: Absolute Lymphocyte Count 1.61 X10^3/uL (0.83-4.51); Absolute Neutrophil Count 3.6 X10^3/uL (2.0-7.7); Basophil# 0.09 X10^3/uL; Basophil% 1.4 % (0-1); Eosinophil# 0.44 X10^3/uL; Eosinophils% 6.7 % (0-5); Hematocrit 39.1 % (40-54); Hemoglobin 12.6 g/dL (13.0-16.5); Lymphocyte # 1.61 X10^3/ul (0.83-4.51); Lymphocyte % 24.6 % (19-41); Mean Corp Hgb Conc 32.2 g/dL (32-36); Mean Corpuscular Hgb 29.8 pg (27.0-32.0); Mean Corpuscular Volume 92.4 fL (80-94); Mean Platelet Vol. 9.3 fl (6.2-12.0); Monocyte# 0.74 X10^3/uL; Monocyte% 11.3 % (0-10); NRBC Flagged by Analyzer 0 % (0-5); Neutrophil # 3.63 X10^3/uL (2.7-7.7); Neutrophil % 55.4 % (47-70); Platelet Count 326 K/mm3 (150-450); RBC Distribution Width CV 14.9 % (11.6-14.6); RBC Distribution Width SD 50.8 fl (35.1-43.9); Red Blood Count 4.23 M/mm3 (4.6-6.2); White Blood Count 6.6 K/mm3 (4.4-11.0)
[2024-12-29] MEDS: Gabapentin 300 MG Capsule 900 MG PO ×3 (06:19→22:35)
[2024-12-29] MEDS: Enoxaparin 40 MG/0.4 ML Syringe SC (06:19)
[2024-12-29 06:44] LABS: Anion Gap 6 (5-15); BUN 16 mg/dL (7-18); BUN/Creat Ratio 13.7 RATIO (10-20); Calcium,Total 8.9 mg/dL (8.5-10.1); Chloride 105 mmol/L (98-107); Creatinine, Serum 1.17 mg/dL (0.70-1.30); EST Glomerular Filtration Rate 65 mL/min (>60); Est Glom Filt Rate - Afr Amer 78 mL/min (>60); Estimated Creatinine Clearance 63.15 ml/min; Glucose 103 mg/dL (74-106); Potassium 4.4 mmol/L (3.5-5.1); Sodium Level 137 mmol/L (136-145)
[2024-12-29 09:16] VITALS: BP 113/70; PULSE 67; RESP 16; TEMP 36.8; O2SAT 98
[2024-12-29] MEDS: amLODIPine 5 MG Tablet PO (09:18)
[2024-12-29] MEDS: Senna/Docusate Sodium 1 Tablet 2 TABLET PO ×2 (09:19→22:37)
[2024-12-29] MEDS: Potassium Chloride Oral Tablet 20 MEQ PO (09:21)
[2024-12-29] MEDS: Nystatin Powder 15gm Bottle 1 APPLIC TOPICAL ×2 (09:21→22:38)
[2024-12-29] MEDS: Menthol/Lanolin/Calamine/Znox 113 GM Tube 1 APPLIC TOPICAL ×2 (09:21→22:37)
[2024-12-29] MEDS: Meclizine 12.5 MG Tablet PO (09:26)
[2024-12-29] MEDS: Ascorbic Acid 500 MG Tablet PO ×2 (10:29→17:47)
[2024-12-29] MEDS: Methenamine Hippurate 1 GM Tablet PO ×2 (10:29→22:36)
[2024-12-29] MEDS: Ferrous Sulfate 325 MG Tablet PO (10:29)
[2024-12-29 18:43] VITALS: PULSE 67; RESP 16; O2SAT 98
[2024-12-29] MEDS: Tamsulosin HCl 0.4 MG Capsule PO (22:36)
[2024-12-29] MEDS: traZODone 100 MG Tablet PO (22:37)
[2024-12-29] MEDS: Arthritis Pain Compound 60 CLICK TUBE TOPICAL (22:38)
[2024-12-30] MEDS: oxyCODONE 5 MG Tablet PO (01:05)
[2024-12-30] MEDS: Acetaminophen 500 MG Tablet 1000 MG PO (01:08)
[2024-12-30] MEDS: Enoxaparin 40 MG/0.4 ML Syringe SC (06:02)
[2024-12-30] MEDS: Gabapentin 300 MG Capsule 900 MG PO ×3 (06:02→20:47)
[2024-12-30] MEDS: Menthol/Lanolin/Calamine/Znox 113 GM Tube 1 APPLIC TOPICAL ×2 (08:39→20:45)
[2024-12-30] MEDS: Nystatin Powder 15gm Bottle 1 APPLIC TOPICAL ×2 (08:40→20:47)
[2024-12-30] MEDS: amLODIPine 5 MG Tablet PO (08:44)
[2024-12-30] MEDS: Ascorbic Acid 500 MG Tablet PO ×2 (08:44→16:51)
[2024-12-30] MEDS: Potassium Chloride Oral Tablet 20 MEQ PO (08:44)
[2024-12-30] MEDS: Methenamine Hippurate 1 GM Tablet PO ×2 (08:47→20:46)
[2024-12-30] MEDS: Ferrous Sulfate 325 MG Tablet PO (12:10)
[2024-12-30 12:18] VITALS: BP 118/82; PULSE 67; RESP 12; TEMP 36.6; O2SAT 91
[2024-12-30] MEDS: Magnesium Citrate 300 ML PO (13:37)
[2024-12-30] MEDS: Tamsulosin HCl 0.4 MG Capsule PO (20:46)
[2024-12-30] MEDS: traZODone 100 MG Tablet PO (20:46)
[2024-12-30] MEDS: Senna/Docusate Sodium 1 Tablet 2 TABLET PO (20:48)
[2024-12-31] MEDS: Gabapentin 300 MG Capsule 900 MG PO ×3 (05:42→20:09)
[2024-12-31] MEDS: tiZANidine HCl 2 MG Tablet PO ×2 (05:44→13:42)
[2024-12-31] MEDS: Enoxaparin 40 MG/0.4 ML Syringe SC (05:45)
[2024-12-31 06:27] VITALS: PULSE 74; O2SAT 97
[2024-12-31 09:14] VITALS: BP 109/73; PULSE 78; RESP 15; TEMP 36.4; O2SAT 95
[2024-12-31] MEDS: Senna/Docusate Sodium 1 Tablet 2 TABLET PO ×2 (09:15→20:09)
[2024-12-31] MEDS: Methenamine Hippurate 1 GM Tablet PO ×2 (09:15→20:09)
[2024-12-31] MEDS: Potassium Chloride Oral Tablet 20 MEQ PO (09:15)
[2024-12-31] MEDS: amLODIPine 5 MG Tablet PO (09:15)
[2024-12-31] MEDS: Ascorbic Acid 500 MG Tablet PO ×2 (09:15→17:50)
[2024-12-31] MEDS: Nystatin Powder 15gm Bottle 1 APPLIC TOPICAL ×2 (09:16→20:09)
[2024-12-31] MEDS: Menthol/Lanolin/Calamine/Znox 113 GM Tube 1 APPLIC TOPICAL ×2 (09:16→20:09)
[2024-12-31] MEDS: Ferrous Sulfate 325 MG Tablet PO (13:43)
--- NOTE | 2024-12-31 16:48 | NURSING ---
lidoderm patches & arthritis compound cream DC'd pt refusing states it doesn't work dr dev zurita
[2024-12-31] MEDS: Tamsulosin HCl 0.4 MG Capsule PO (20:09)
[2024-12-31] MEDS: traZODone 100 MG Tablet PO (22:07)
[2024-12-31] MEDS: oxyCODONE 5 MG Tablet PO (22:08)
[2025-01-01] MEDS: tiZANidine HCl 2 MG Tablet PO ×2 (02:05→21:47)
[2025-01-01] MEDS: Acetaminophen 500 MG Tablet 1000 MG PO (02:07)
[2025-01-01] MEDS: oxyCODONE 5 MG Tablet PO (03:46)
[2025-01-01] MEDS: Enoxaparin 40 MG/0.4 ML Syringe SC (06:31)
[2025-01-01] MEDS: Gabapentin 300 MG Capsule 900 MG PO ×3 (06:31→21:47)
[2025-01-01] MEDS: Meclizine 12.5 MG Tablet PO (08:02)
[2025-01-01] MEDS: Senna/Docusate Sodium 1 Tablet 2 TABLET PO ×2 (08:02→21:47)
[2025-01-01] MEDS: Ascorbic Acid 500 MG Tablet PO ×2 (08:02→16:42)
[2025-01-01] MEDS: Nystatin Powder 15gm Bottle 1 APPLIC TOPICAL ×2 (08:02→21:48)
[2025-01-01] MEDS: Methenamine Hippurate 1 GM Tablet PO ×2 (08:02→21:48)
[2025-01-01] MEDS: Potassium Chloride Oral Tablet 20 MEQ PO (08:02)
[2025-01-01] MEDS: amLODIPine 5 MG Tablet PO (08:02)
[2025-01-01] MEDS: Menthol/Lanolin/Calamine/Znox 113 GM Tube 1 APPLIC TOPICAL ×2 (08:04→21:48)
[2025-01-01 08:15] VITALS: BP 110/79; PULSE 70; RESP 18; TEMP 36.6; O2SAT 97
[2025-01-01] MEDS: Ferrous Sulfate 325 MG Tablet PO (11:44)
[2025-01-01] MEDS: traZODone 100 MG Tablet PO (21:48)
[2025-01-01] MEDS: Tamsulosin HCl 0.4 MG Capsule PO (21:48)
[2025-01-02] MEDS: Gabapentin 300 MG Capsule 900 MG PO ×3 (06:16→22:07)
[2025-01-02] MEDS: Enoxaparin 40 MG/0.4 ML Syringe SC (06:17)
[2025-01-02] MEDS: Ascorbic Acid 500 MG Tablet PO ×2 (07:47→17:23)
[2025-01-02] MEDS: Menthol/Lanolin/Calamine/Znox 113 GM Tube 1 APPLIC TOPICAL ×2 (07:47→22:08)
[2025-01-02] MEDS: Potassium Chloride Oral Tablet 20 MEQ PO (07:47)
[2025-01-02] MEDS: Senna/Docusate Sodium 1 Tablet 2 TABLET PO ×2 (07:48→22:09)
[2025-01-02] MEDS: Nystatin Powder 15gm Bottle 1 APPLIC TOPICAL ×2 (07:48→22:08)
[2025-01-02] MEDS: amLODIPine 5 MG Tablet PO (07:48)
[2025-01-02] MEDS: Methenamine Hippurate 1 GM Tablet PO ×2 (07:48→22:08)
[2025-01-02 07:52] VITALS: BP 125/82; PULSE 67; RESP 18; O2SAT 96
[2025-01-02] MEDS: Ferrous Sulfate 325 MG Tablet PO (11:31)
[2025-01-02] MEDS: Meclizine 12.5 MG Tablet PO (11:37)
[2025-01-02 11:40] VITALS: PULSE 74; RESP 18; O2SAT 97
[2025-01-02 15:53] VITALS: TEMP 36.9
--- NOTE | 2025-01-02 15:55 | NURSING ---
UP DATED PT ON STAFF MEMBER TESTED POSITIVE FOR COVID. PT STATED HE WOULD LET DAUGHTER KNOW AND ABOUT POSSIBLE MRI ON SPINE.
[2025-01-02] MEDS: tiZANidine HCl 2 MG Tablet PO (22:08)
[2025-01-02] MEDS: Tamsulosin HCl 0.4 MG Capsule PO (22:08)
[2025-01-02] MEDS: traZODone 100 MG Tablet PO (22:08)
[2025-01-03] MEDS: Gabapentin 300 MG Capsule 900 MG PO ×3 (05:30→21:58)
[2025-01-03] MEDS: Enoxaparin 40 MG/0.4 ML Syringe SC (05:30)
[2025-01-03] MEDS: tiZANidine HCl 2 MG Tablet PO ×2 (05:38→14:23)
[2025-01-03 05:56] VITALS: PULSE 67; RESP 16; O2SAT 96
--- NOTE | 2025-01-03 09:01 | NURSING ---
Addendum entered by Mariana Verma 01/03/25 11:01: Back to room from MRI. Original Note: Per Dr. White, MRI to be done without contrast. Received auth, #[id number]. Resident taken to MRI at 0900.
[2025-01-03] MEDS: Potassium Chloride Oral Tablet 20 MEQ PO (11:05)
[2025-01-03] MEDS: Ascorbic Acid 500 MG Tablet PO ×2 (11:05→16:13)
[2025-01-03] MEDS: Menthol/Lanolin/Calamine/Znox 113 GM Tube 1 APPLIC TOPICAL ×2 (11:06→21:59)
[2025-01-03] MEDS: amLODIPine 5 MG Tablet PO (11:07)
[2025-01-03] MEDS: Methenamine Hippurate 1 GM Tablet PO ×2 (11:07→21:58)
[2025-01-03] MEDS: Nystatin Powder 15gm Bottle 1 APPLIC TOPICAL ×2 (11:07→21:59)
[2025-01-03] MEDS: Ferrous Sulfate 325 MG Tablet PO (11:08)
[2025-01-03] MEDS: Senna/Docusate Sodium 1 Tablet 2 TABLET PO (11:08)
[2025-01-03] MEDS: Meclizine 12.5 MG Tablet PO (11:14)
[2025-01-03 11:16] VITALS: BP 119/75; PULSE 75; RESP 18; O2SAT 93
--- NOTE | 2025-01-03 11:17 | NURSING ---
PT RETURNED TO FLOOR BY BED FROM MRI AT 11:00 AM
[2025-01-03 16:00] VITALS: TEMP 37.2
[2025-01-03] MEDS: traZODone 100 MG Tablet PO (21:58)
[2025-01-03] MEDS: Tamsulosin HCl 0.4 MG Capsule PO (21:58)
[2025-01-03] MEDS: oxyCODONE 5 MG Tablet PO (22:05)
[2025-01-04] MEDS: oxyCODONE 5 MG Tablet PO (03:33)
[2025-01-04] MEDS: Gabapentin 300 MG Capsule 900 MG PO ×3 (05:35→21:02)
[2025-01-04] MEDS: Enoxaparin 40 MG/0.4 ML Syringe SC (05:36)
[2025-01-04] MEDS: Nystatin Powder 15gm Bottle 1 APPLIC TOPICAL ×2 (09:01→21:02)
[2025-01-04] MEDS: Potassium Chloride Oral Tablet 20 MEQ PO (09:01)
[2025-01-04] MEDS: Menthol/Lanolin/Calamine/Znox 113 GM Tube 1 APPLIC TOPICAL ×2 (09:01→21:02)
[2025-01-04] MEDS: Senna/Docusate Sodium 1 Tablet 2 TABLET PO ×2 (09:02→21:01)
[2025-01-04] MEDS: amLODIPine 5 MG Tablet PO (09:02)
[2025-01-04] MEDS: Methenamine Hippurate 1 GM Tablet PO ×2 (09:02→21:01)
[2025-01-04] MEDS: Ascorbic Acid 500 MG Tablet PO ×2 (09:02→17:22)
[2025-01-04 09:05] VITALS: BP 112/71; PULSE 80; RESP 16; O2SAT 94
[2025-01-04] MEDS: Ferrous Sulfate 325 MG Tablet PO (11:21)
[2025-01-04] MEDS: Acetaminophen 500 MG Tablet 1000 MG PO (11:23)
--- NOTE | 2025-01-04 12:59 | CONS.ORTHO ---
HPI Consult Data Date of Consult: 01/04/25 HPI Narrative HPI Narrative: MIROSLAVA PALACIO, is a 74 M who presents progressive weakness all 4 extremities. I saw the patient in TCU room 3 today around 12:30 PM. Patient has had a long history of lower extremity numbness. He has had multiple surgeries on the right hip for fractures. He has had severe weakness of the right leg and foot for the last few years. It was unclear whether this was from repeated dislocations of his hip replacement and repeat surgeries versus lumbar in origin. He then underwent lumbar decompressive surgery in the form of laminectomy at L3-5 about 3 to 4 years ago which did not seem to help the numbness and weakness in the lower extremity. Over the last few years he has had even progressive weakness in the upper extremities with now difficulty with dexterity. He is now unable to do transfers independently and requires a lot of help because of loss of balance. He has had multiple medical admissions over the last year for various medical reasons. He says that he has had an EMG and some follow-up neurology consultation in the past, but there is no documentation for the same. [facility] Medical History Debility Intractable back pain Neuropathic pain of both legs Chronic indwelling Dowling catheter Unable to ambulate Back pain Chest pain Vision loss of right eye Anxiety Depression GERD (gastroesophageal reflux disease) Hypertension Right femoral fracture History of fractured rib (08/12/20) Anxiety Essential (primary) hypertension Hepatitis A Osteoarthritis Home Medications ?Medication ?Instructions ?Recorded ?Last Taken ?Type tamsulosin 0.4 mg capsule 0.4 mg PO QHS PROSTATE 03/11/23 12/27/24 History potassium chloride 20 mEq 20 meq PO DAILYCM supplement 30 03/07/24 12/27/24 Rx tablet,extended release(part/cryst) days #30 tabs ferrous sulfate 324 mg (65 mg 324 mg PO DAILY supplement 09/12/24 12/27/24 History iron) tablet,delayed release trazodone 100 mg tablet 100 mg PO QHS sleep 11/30/24 12/27/24 History acetaminophen 325 mg tablet 650 mg (2 x 325 mg) PO Q4H PRN PRN 12/05/24 12/05/24 Rx Fever, pain 1-08/31 #0 tabs amlodipine 5 mg tablet 5 mg PO DAILY BP #1 TAB 12/05/24 12/28/24 Rx gabapentin 300 mg capsule 900 mg (3 x 300 mg) PO TID Nerve 12/05/24 12/27/24 Rx pain #0 caps lidocaine 5 % topical patch 2 patch topical DAILY pain 12/05/24 12/27/24 History meclizine 12.5 mg tablet 12.5 mg PO TID PRN PRN Dizziness 12/05/24 12/27/24 Rx #0 tabs sennosides 8.6 mg-docusate sodium 2 tab PO BID PRN PRN Constipation 12/05/24 Unknown Rx 50 mg tablet (Stimulant Laxative #1 TAB Plus) tizanidine 2 mg tablet 2 mg PO Q8H PRN PRN muscle 12/05/24 12/04/24 Rx strain/spasms #0 tabs tolterodine 4 mg capsule,extended 4 mg PO DAILY Overactive bladder 12/05/24 12/05/24 Rx release 24 hr #0 caps ceftriaxone 1 gram solution for 1 g IM DAILY antiobiotic #1 ea 12/15/24 Unknown Rx injection oxycodone 5 mg tablet 5 mg PO Q4H PRN PRN Pain Score 12/15/24 12/27/24 Rx 4-10 3 days #10 tabs Allergy/AdvReac Type Severity Reaction Status Date / Time diltiazem (From Cardizem) AdvReac unknown Verified 12/12/24 18:00 losartan (From Hyzaar) AdvReac unknown Verified 12/12/24 18:00 metoprolol (From Lopressor) AdvReac unknown Verified 12/12/24 18:00 valsartan (From Diovan) AdvReac unknown Verified 12/12/24 18:00 Family History Mother Heart disease Cancer breast Sister Heart disease Father , in a train accident. No problems noted. Surgical History History of lumbar laminectomy for spinal cord decompression History of shoulder surgery History of elbow surgery History of hip replacement Social History household members: none Smoking Status: Former smoker quit date: 11/22/92 pack-years: 46 alcohol intake: former year quit: 1991 substance use type: does not use Vital Signs Vital Signs Vital Signs: 01/03/25 16:00 01/03/25 22:00 01/04/25 09:05 Temperature 99.0 F Temperature Source Temporal Pulse Rate 80 Pulse Strength Normal (2+) Respiratory Rate 16 Blood Pressure 112/71 Blood Pressure Mean 84 Blood Pressure Source Monitor Blood Pressure Position Semi-Fowlers Blood Pressure Location Left Arm Pulse Ox 94 Oxygen Delivery Method Room Air 01/04/25 10:00 Temperature Temperature Source Pulse Rate Pulse Strength Normal (2+) Respiratory Rate Blood Pressure Blood Pressure Mean Blood Pressure Source Blood Pressure Position Blood Pressure Location Pulse Ox Oxygen Delivery Method Weight Weight: 202 lb 1.564 oz Body Mass Index (BMI) 28.1 Physical Exam Narrative Exam of the back shows midline lumbar incision which is well-healed. There is no significant lumbar or thoracic or cervical tenderness. Neurologic eversion of upper and lower extremity shows 4+ by 5 power in all muscle groups, except for right ankle dorsiflexion which is grade 3 and right quadriceps is grade 4. There is no hyperreflexia. Lab / Micro Data 12/29/24 05:31 12/29/24 05:31 Micro: Microbiology 01/03/25 05:28 Nasal Secretion SARS-CoV-2 Antigen (Rapid) - Final Assessment & Plan Assessment/Plan (1) Spinal stenosis in cervical region: (2) History of lumbar laminectomy: (3) Weakness: (4) Right foot drop: PLAN: Plan Reviewed MRIs of the cervical thoracic and lumbar spine as well as CT scan of the abdomen from last month. They show multilevel cervical disc degeneration with stenosis at C3-4 and C5-6 with mild cord indentation without significant cord compression or cord signal changes. Lumbar spine shows multilevel disc degeneration with evidence of prior L3-5 laminectomy. Thoracic MRI does not show any cord compression. Explained imaging findings in detail. While he does have cervical stenosis on MRI, he does not have significant cord compression causing the changes. His progressive worsening weakness with dexterity and balance loss is difficult to explain from the extent of stenosis on the MRI. I recommend evaluating for other sources of progressive weakness such as brain or peripheral neuropathy, likely from a neurology consultation as an outpatient. At this time, I would not recommend any spine surgical intervention. His right foot drop may be related to multiple hip dislocations after his hip surgeries in the past with associated possible sciatic nerve injury, however this is difficult to ascertain. He may benefit from EMG to rule out peripheral neuropathy and may be ordered by neurologist if needed. Patient is planning to move to [place] later this month. He may follow-up on a as needed basis as an outpatient. Charges/Coding Visit Charges Inpatient E&M: 50819 Init Hosp L3
[2025-01-04] MEDS: Meclizine 12.5 MG Tablet PO (15:40)
--- NOTE | 2025-01-04 15:57 | CASEMGMT ---
Social Work SW left VM with pt's dtr to discuss DC planning. - SW received call from friend, Jocelin Macedo, inquiring about update. SW explained insurance approved with [employer] 01/10, though IDT is considering setting DC date as pt is ready to transition to next facility. Friend stated she spoke with pt's dtr yesterday and dtr is meeting with an polisher and buffer on Wednesday, then planning to take the two day drive from [place] to [place] to see the pt, get things in order, then drive pt back to [place], and admit pt to [facility] in [place]. SW explained if that is the plan, the dtr will need to attend a therapy session to see how pt is functioning and therapy/Dr needs to give recommendations for travel, etc. Friend agreed and attempted to brief dtr on pts condition, but dtr appears unrealistic to pt's needs. SW to await return call from dtr to coordinate. Huyen Davis PICKER BOX OPERATOR REHAB THERAPIST
[2025-01-04 16:00] VITALS: TEMP 37.1
[2025-01-04] MEDS: Tamsulosin HCl 0.4 MG Capsule PO (21:01)
[2025-01-04] MEDS: traZODone 100 MG Tablet PO (21:02)
[2025-01-04 21:07] VITALS: RESP 16
[2025-01-05] MEDS: Gabapentin 300 MG Capsule 900 MG PO ×3 (05:51→20:58)
[2025-01-05] MEDS: Enoxaparin 40 MG/0.4 ML Syringe SC (05:52)
[2025-01-05 07:03] LABS: Absolute Lymphocyte Count 1.58 X10^3/uL (0.83-4.51); Absolute Neutrophil Count 4.6 X10^3/uL (2.0-7.7); Basophil# 0.08 X10^3/uL; Basophil% 1.1 % (0-1); Eosinophil# 0.34 X10^3/uL; Eosinophils% 4.6 % (0-5); Hematocrit 41.2 % (40-54); Lymphocyte # 1.58 X10^3/ul (0.83-4.51); Lymphocyte % 21.3 % (19-41); Mean Corp Hgb Conc 31.6 g/dL (32-36); Mean Corpuscular Hgb 29.3 pg (27.0-32.0); Mean Corpuscular Volume 92.8 fL (80-94); Mean Platelet Vol. 9.3 fl (6.2-12.0); Monocyte# 0.76 X10^3/uL; Monocyte% 10.3 % (0-10); NRBC Flagged by Analyzer 0 % (0-5); Neutrophil # 4.61 X10^3/uL (2.7-7.7); Neutrophil % 62.2 % (47-70); Platelet Count 267 K/mm3 (150-450); RBC Distribution Width CV 15.1 % (11.6-14.6); RBC Distribution Width SD 51.6 fl (35.1-43.9); Red Blood Count 4.44 M/mm3 (4.6-6.2); White Blood Count 7.4 K/mm3 (4.4-11.0)
[2025-01-05 07:33] LABS: Anion Gap 4 (5-15); BUN 16 mg/dL (7-18); BUN/Creat Ratio 15.1 RATIO (10-20); Calcium,Total 9.3 mg/dL (8.5-10.1); Chloride 106 mmol/L (98-107); Creatinine, Serum 1.06 mg/dL (0.70-1.30); EST Glomerular Filtration Rate 72 mL/min (>60); Est Glom Filt Rate - Afr Amer 88 mL/min (>60); Estimated Creatinine Clearance 69.71 ml/min; Glucose 93 mg/dL (74-106); Potassium 4.4 mmol/L (3.5-5.1); Sodium Level 137 mmol/L (136-145)
[2025-01-05] MEDS: Senna/Docusate Sodium 1 Tablet 2 TABLET PO ×2 (08:27→20:52)
[2025-01-05] MEDS: Potassium Chloride Oral Tablet 20 MEQ PO (08:27)
[2025-01-05] MEDS: Ascorbic Acid 500 MG Tablet PO ×2 (08:27→16:48)
[2025-01-05] MEDS: Methenamine Hippurate 1 GM Tablet PO ×2 (08:27→20:52)
[2025-01-05] MEDS: amLODIPine 5 MG Tablet PO (08:27)
[2025-01-05] MEDS: Menthol/Lanolin/Calamine/Znox 113 GM Tube 1 APPLIC TOPICAL ×2 (08:28→20:50)
[2025-01-05] MEDS: Nystatin Powder 15gm Bottle 1 APPLIC TOPICAL ×2 (08:28→20:52)
[2025-01-05] MEDS: Meclizine 12.5 MG Tablet PO ×2 (08:29→13:02)
[2025-01-05 08:30] VITALS: PULSE 76; RESP 16; O2SAT 95
[2025-01-05 09:15] VITALS: BP 111/71; PULSE 75; RESP 16; TEMP 36.5; O2SAT 95
[2025-01-05] MEDS: Ferrous Sulfate 325 MG Tablet PO (11:29)
--- NOTE | 2025-01-05 15:36 | CASEMGMT ---
Social Work Referral faxed to [facility]. MARGARITA Payan
[2025-01-05] MEDS: Acetaminophen 500 MG Tablet 1000 MG PO (16:48)
[2025-01-05] MEDS: traZODone 100 MG Tablet PO (20:51)
[2025-01-05] MEDS: Tamsulosin HCl 0.4 MG Capsule PO (20:51)
[2025-01-05] MEDS: tiZANidine HCl 2 MG Tablet PO (20:58)
[2025-01-06] MEDS: oxyCODONE 5 MG Tablet PO (02:26)
[2025-01-06] MEDS: Gabapentin 300 MG Capsule 900 MG PO ×3 (05:23→22:24)
[2025-01-06] MEDS: Acetaminophen 500 MG Tablet 1000 MG PO ×2 (05:25→22:24)
[2025-01-06] MEDS: Enoxaparin 40 MG/0.4 ML Syringe SC (05:26)
[2025-01-06 08:30] VITALS: BP 102/59; PULSE 77; RESP 18; TEMP 37.1; O2SAT 94
[2025-01-06] MEDS: Potassium Chloride Oral Tablet 20 MEQ PO (10:33)
[2025-01-06] MEDS: amLODIPine 5 MG Tablet PO (10:33)
[2025-01-06] MEDS: Senna/Docusate Sodium 1 Tablet 2 TABLET PO ×2 (10:33→22:23)
[2025-01-06] MEDS: Menthol/Lanolin/Calamine/Znox 113 GM Tube 1 APPLIC TOPICAL ×2 (10:34→22:25)
[2025-01-06] MEDS: Methenamine Hippurate 1 GM Tablet PO ×2 (10:34→22:24)
[2025-01-06] MEDS: Ascorbic Acid 500 MG Tablet PO ×2 (10:34→18:28)
[2025-01-06] MEDS: Nystatin Powder 15gm Bottle 1 APPLIC TOPICAL ×2 (10:35→22:24)
[2025-01-06] MEDS: Ferrous Sulfate 325 MG Tablet PO (13:52)
[2025-01-06 16:00] VITALS: RESP 18
[2025-01-06] MEDS: traZODone 100 MG Tablet PO (22:23)
[2025-01-06] MEDS: Tamsulosin HCl 0.4 MG Capsule PO (22:24)
[2025-01-06] MEDS: tiZANidine HCl 2 MG Tablet PO (22:24)
[2025-01-06] MEDS: Meclizine 12.5 MG Tablet PO (22:33)
[2025-01-07] MEDS: Gabapentin 300 MG Capsule 900 MG PO ×3 (05:53→20:55)
[2025-01-07] MEDS: Enoxaparin 40 MG/0.4 ML Syringe SC (05:53)
[2025-01-07] MEDS: Potassium Chloride Oral Tablet 20 MEQ PO (09:07)
[2025-01-07] MEDS: Ascorbic Acid 500 MG Tablet PO ×2 (09:07→17:44)
[2025-01-07] MEDS: Menthol/Lanolin/Calamine/Znox 113 GM Tube 1 APPLIC TOPICAL ×2 (09:07→21:03)
[2025-01-07] MEDS: amLODIPine 5 MG Tablet PO (09:08)
[2025-01-07] MEDS: Nystatin Powder 15gm Bottle 1 APPLIC TOPICAL ×2 (09:08→21:03)
[2025-01-07] MEDS: Methenamine Hippurate 1 GM Tablet PO ×2 (09:08→20:57)
[2025-01-07] MEDS: Ferrous Sulfate 325 MG Tablet PO (11:58)
[2025-01-07 17:00] VITALS: BP 144/83; PULSE 88; RESP 18; TEMP 36.2; O2SAT 95
[2025-01-07] MEDS: Tamsulosin HCl 0.4 MG Capsule PO (20:56)
[2025-01-07] MEDS: traZODone 100 MG Tablet PO (20:56)
[2025-01-07] MEDS: Senna/Docusate Sodium 1 Tablet 2 TABLET PO (20:57)
[2025-01-07] MEDS: Meclizine 12.5 MG Tablet PO (21:01)
[2025-01-08] MEDS: Enoxaparin 40 MG/0.4 ML Syringe SC (05:51)
[2025-01-08] MEDS: Gabapentin 300 MG Capsule 900 MG PO ×3 (05:52→22:02)
[2025-01-08] MEDS: Potassium Chloride Oral Tablet 20 MEQ PO (08:33)
[2025-01-08] MEDS: Methenamine Hippurate 1 GM Tablet PO ×2 (08:34→22:04)
[2025-01-08] MEDS: Ascorbic Acid 500 MG Tablet PO ×2 (08:34→18:52)
[2025-01-08] MEDS: amLODIPine 5 MG Tablet PO (08:34)
[2025-01-08] MEDS: Menthol/Lanolin/Calamine/Znox 113 GM Tube 1 APPLIC TOPICAL ×2 (08:35→22:02)
[2025-01-08] MEDS: Senna/Docusate Sodium 1 Tablet 2 TABLET PO ×2 (08:35→22:04)
[2025-01-08] MEDS: Nystatin Powder 15gm Bottle 1 APPLIC TOPICAL ×2 (08:37→22:03)
[2025-01-08] MEDS: Ferrous Sulfate 325 MG Tablet PO (13:05)
--- NOTE | 2025-01-08 15:59 | CASEMGMT ---
Social Work SW received call from dtr and discussed dtr's plan for DC for pt. Dtr has planned a rental 16-passenger van driving with her and children from [place] to [place], leaving 01/09, to bring pt back to [place] to a SNF, [facility]. Dtr plans to arrive 01/10 or 01/11, then gather pt's belongings and drive pt and family back to [place] SNF. SW inquired further about logistics with stopping, sleeping, bathroom breaks, etc, cautioning pt is a [employer]era[employer]ift or x2 for transfers currently, and will not be able to use average bathroom facilities along the way. Dtr expressed understanding and stated we will do whatever we need to do. My and 14 year old son are strong and can assist. SW requested dtr and family to attend therapy session on 01/11 to receive training on caring for pt. Dtr agreed. Dtr to contact this worker the day prior to schedule time for therapy training. SW inquired about day of DC to allow for planning. Dtr requests 01/13, if insurance approves. RHEA accepted, if insurance issues DC from update 01/10, pt would be covered and scheduled to DC 01/13. Dtr appreciative of assistance and will continue communicating with this worker. SW updated IDT. Huyen Davis TRANSFORMATION MANAGER MEDICAL ADMINISTRATIVE TECHNICIAN
[2025-01-08 16:00] VITALS: BP 112/75; PULSE 75; RESP 18; TEMP 37.3; O2SAT 94
--- NOTE | 2025-01-08 17:26 | PN.TCU_ITS ---
Subjective Subjective Resident seen, examined for regulatory visit. Resident has progressive weakness, numbness, tingling in all 4 extremities. He has no other complaints. 01/03/2025 MRI cervical spine: IMPRESSION: 1. Advanced multilevel degenerative disc disease and spondylosis with severe central canal stenosis at C3-C4 and C5-C6 as well as moderate central canal stenosis at C4-C5 and mild central canal stenosis at C6- C7. Multilevel varying degrees of neural foraminal narrowing are identified which are mostly on a moderate to severe basis. 2. No abnormal cord signal. 01/03/2025 MRI thoracic spine: IMPRESSION: 1. No acute osseous abnormality or significant spinal stenosis. 2. Acquired wdsh-mq-tonwobdf multilevel foraminal narrowing, greatest at T10- T11. 01/03/2025 MRI lumbar spine: IMPRESSION: 1. Acquired multilevel spinal stenosis, greatest at L2-L3 and L3-L4 categorized as moderate. 2. Acquired multilevel foraminal narrowing, greatest at L3-L4. 3. Mild levoscoliosis. 01/04/2025 Dr. Allen: Plan Reviewed MRIs of the cervical thoracic and lumbar spine as well as CT scan of the abdomen from last month. They show multilevel cervical disc degeneration with stenosis at C3-4 and C5-6 with mild cord indentation without significant cord compression or cord signal changes. Lumbar spine shows multilevel disc degeneration with evidence of prior L3-5 laminectomy. Thoracic MRI does not show any cord compression. Explained imaging findings in detail. While he does have cervical stenosis on MRI, he does not have significant cord compression causing the changes. His progressive worsening weakness with dexterity and balance loss is difficult to explain from the extent of stenosis on the MRI. I recommend evaluating for other sources of progressive weakness such as brain or peripheral neuropathy, likely from a neurology consultation as an outpatient. At this time, I would not recommend any spine surgical intervention. His right foot drop may be related to multiple hip dislocations after his hip surgeries in the past with associated possible sciatic nerve injury, however this is difficult to ascertain. He may benefit from EMG to rule out peripheral neuropathy and may be ordered by neurologist if needed. Patient is planning to move to [place] later this month. He may follow-up on a as needed basis as an outpatient. Objective Data Objective Data Vital Signs: Vital Signs Temp Pulse Resp BP Pulse Ox O2 Del Method 97.2 F L 88 18 144/83 H 95 Room Air 01/07/25 17:00 02/16/25 17:00 01/07/25 17:00 01/07/25 17:00 01/07/25 17:00 01/07/25 17:00 Oxygen Delivery Method Room Air Weight: 91.67 kg Body Mass Index (BMI) 28.1 Intake & Output: Intake and Output for Last 24 Hours 01/06/25 01/07/25 01/08/25 23:59 23:59 23:59 Intake Total 1320 / 1320 1440 / 1440 720 / 720 Output Total 2400 / 2400 2950 / 2950 1800 / 1800 Balance -1080 / -1080 -1510 / -1510 -1080 / -1080 Lab / Micro Data 01/05/25 06:21 01/05/25 06:21 Micro: Microbiology 01/03/25 05:28 Nasal Secretion SARS-CoV-2 Antigen (Rapid) - Final 12/27/24 09:40 Stool Stool Occult Blood (EVANGELISTA) - Final Occult Blood Positive Physical Exam Const alert General Appearance: cooperative HEENT normocephalic Eyes PERRL and EOMs intact bilaterally Neck supple, no JVD and no carotid bruits Resp normal respiratory effort, normal air movement and clear to auscultation bilaterally Cardio regular rate and regular rhythm GI normal to inspection, nondistended, normoactive bowel sounds, non-tender and non-distended Bladder / Kidney Exam: catheter in place urethral Extremity normal capillary refill General Extremity: Negative for edema Skin no rashes or lesions noted General Skin Exam: no breakdown Neuro moves all extremities Motor Exam: general weakness Psych affect normal Appearance: appropriate Assessment & Plan Assessment/Plan (1) Complicated urinary tract infection: (2) Debility: (3) Bacteremia: (4) MUNA (acute kidney injury): (5) Hydronephrosis, left: (6) Essential (primary) hypertension: (7) Iron deficiency anemia: (8) Neuropathic pain: (9) BPPV (benign paroxysmal positional vertigo): QUALIFIERS: Laterality: unspecified laterality Qualified Code(s): H81.10 - Benign paroxysmal vertigo, unspecified ear (10) Hypokalemia: (11) BPH (benign prostatic hyperplasia): (12) Urinary retention: (13) Neurogenic bladder: (14) Muscle spasm: (15) Insomnia: PLAN: Plan 74 year old male with below past medical history hospitalized for complicated urinary tract infection 2/2 neurogenic bladder, chronic indwelling hancock catheter, left hydronephrosis, complicated by acute kidney injury, bacteremia, admitted to TCU with debility, here for rehabilitation, strengthening, prior to discharge home alone. * Debility - PT/OT. * Pain - Tylenol 1000mg q6 prn pain (1-3), Oxycodone 5mg q4 prn pain (4-10). * Bowel - senna/colace 2 tablets bid, Magnesium citrate 300mL po daily prn. * Adult immunization - Administer pneumonia vaccine, covid vaccine, flu vaccine as appropriate. * DVT prophylaxis - Lovenox 40mg sc daily. * Hypertension - Amlodipine 5mg daily. * Recurrent UTI - Methenamine 1gm bid, Vitamin C 500mg bid. * Iron deficiency anemia - Ferrous sulfate 325mg daily. * Neuropathic pain - Gabapentin 900mg tid. * BPPV - Meclizine 12.5mg tid prn. * Hypokalemia - KCL ER 20meq daily. * BPH/urinary retention - Tamsulosin 0.4mg daily, indwelling hancock catheter. * Muscle spasm - Tizanidine 2mg q8 prn. 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 * Skin irritation - Calmoseptine topical bid. * Tinea Corporis - Nystatin topical bid.
[2025-01-08 20:00] VITALS: PULSE 74; O2SAT 94
[2025-01-08] MEDS: oxyCODONE 5 MG Tablet PO (22:01)
[2025-01-08] MEDS: traZODone 100 MG Tablet PO (22:03)
[2025-01-08] MEDS: Tamsulosin HCl 0.4 MG Capsule PO (22:04)
[2025-01-09] MEDS: tiZANidine HCl 2 MG Tablet PO ×2 (05:10→22:20)
[2025-01-09] MEDS: Acetaminophen 500 MG Tablet 1000 MG PO ×2 (05:10→22:20)
[2025-01-09] MEDS: Gabapentin 300 MG Capsule 900 MG PO ×3 (05:11→21:54)
[2025-01-09] MEDS: Enoxaparin 40 MG/0.4 ML Syringe SC (05:12)
[2025-01-09 06:49] VITALS: PULSE 70; O2SAT 94
[2025-01-09] MEDS: Potassium Chloride Oral Tablet 20 MEQ PO (08:20)
[2025-01-09] MEDS: Menthol/Lanolin/Calamine/Znox 113 GM Tube 1 APPLIC TOPICAL ×2 (08:21→22:00)
[2025-01-09] MEDS: Ascorbic Acid 500 MG Tablet PO ×2 (08:21→17:04)
[2025-01-09] MEDS: Senna/Docusate Sodium 1 Tablet 2 TABLET PO ×2 (08:22→21:59)
[2025-01-09] MEDS: amLODIPine 5 MG Tablet PO (08:22)
[2025-01-09] MEDS: Nystatin Powder 15gm Bottle 1 APPLIC TOPICAL ×2 (08:22→22:00)
[2025-01-09] MEDS: Methenamine Hippurate 1 GM Tablet PO ×2 (08:22→21:59)
[2025-01-09] MEDS: Meclizine 12.5 MG Tablet PO (08:26)
[2025-01-09 08:29] VITALS: BP 110/76; PULSE 72; RESP 18; O2SAT 96
[2025-01-09] MEDS: Ferrous Sulfate 325 MG Tablet PO (11:12)
[2025-01-09 11:40] VITALS: BMI 29.0
--- NOTE | 2025-01-09 11:45 | NURSING ---
THERAPY CAME TO THIS NURSE AND STATED THAT PT WAS COMPLAINING OF PAIN IN PENIS AREA. WENT TO PT RUN AND LOOKED AT PT LAWSON,NO OUT PUT AND PT STATED HE COULDN'T PEE. FOUND LAWSON HAD BEEN KINKED OFF. MADE SURE LAWSON HAD NO MORE AREAS OF BEING KINKED OFF. PT STILL COULDN'T PEE. TRIED TO FLUSH LASWON PER ORDER AND WOULD NOT FLUSH. REPLACED LAWSON WITH A 18 AND URINE IS FLOWING FREELY. RN AWARE.
[2025-01-09 14:12] VITALS: TEMP 36.6
--- NOTE | 2025-01-09 14:19 | NURSING ---
Addendum entered by Erlin Allen 01/09/25 17:06: PT FAMILY MEMBER BROUGHT BACK HOUSE KEYS AND ARE NOW LOCKED BACK UP IN MED BOX. Original Note: PT FAMILY MEMBER CAME BY AND TOOK PT HOUSE KEYS AND STATED HE WOULD BRING THEM BACK. PT STATED IT WAS OK FOR YANDEL TO TAKE. THERAPY IN ROOM.
[2025-01-09] MEDS: traZODone 100 MG Tablet PO (21:59)
[2025-01-09] MEDS: Tamsulosin HCl 0.4 MG Capsule PO (21:59)
[2025-01-10] MEDS: Enoxaparin 40 MG/0.4 ML Syringe SC (06:06)
[2025-01-10] MEDS: Gabapentin 300 MG Capsule 900 MG PO ×3 (06:06→23:02)
[2025-01-10] MEDS: Methenamine Hippurate 1 GM Tablet PO ×2 (08:08→23:03)
[2025-01-10] MEDS: Potassium Chloride Oral Tablet 20 MEQ PO (08:08)
[2025-01-10] MEDS: amLODIPine 5 MG Tablet PO (08:08)
[2025-01-10] MEDS: Ascorbic Acid 500 MG Tablet PO ×2 (08:08→17:08)
[2025-01-10] MEDS: Senna/Docusate Sodium 1 Tablet 2 TABLET PO (08:08)
[2025-01-10 10:00] VITALS: BP 112/74; PULSE 77; RESP 16; TEMP 36.7; O2SAT 100
[2025-01-10] MEDS: Ferrous Sulfate 325 MG Tablet PO (13:15)
[2025-01-10] MEDS: Nystatin Powder 15gm Bottle 1 APPLIC TOPICAL ×2 (13:18→23:09)
[2025-01-10] MEDS: Menthol/Lanolin/Calamine/Znox 113 GM Tube 1 APPLIC TOPICAL ×2 (13:21→23:10)
--- NOTE | 2025-01-10 15:45 | CASEMGMT ---
Social Work SW exchanged several email correspondence with dtr finalizing DC plans. Dtr scheduled therapy training for 01/11 at 12:30 pm. SW notified therapy. Dtr will be taking pt directly to [facility]. RHEA phoned Delia, shilpa, to inquire about admission and PASRR. [facility]ia is expected to admit the pt and sent email of [place] PASRR to be completed manually. RHEA completed and returned to [facility] via secure email. Plan: DC 01/13 to [facility] in [place], [place], nearby dtr Huyen HOWEW
--- NOTE | 2025-01-10 19:18 | PCM.DC.SUM ---
Providers Date of Admission: 12/15/24 Primary Care Physician: Corrie Marinelli, DRIVER/SALES WORKERS Consultations 12/16/24 11:35 Consult: Urology Routine Consulting Provider: Fan Slater Reason for Consult: suprapubic cath EMERGENT Consult: No MD Notified: Yes Date Notified: 12/16/24 Time Notified: 11:36 Method of Notification: Answering Service 12/27/24 11:28 Consult: Gastroenterology Routine Consulting Provider: [facility] Reason for Consult: Positive Occult stool EMERGENT Consult: No MD Notified: Yes Date Notified: 12/27/24 Time Notified: 11:28 Method of Notification: Text 01/04/25 07:31 Consult: Orthopedics Routine Consulting Provider: Zane Allen Reason for Consult: Cervical spinal stenosis, weakness of arms/legs. EMERGENT Consult: No MD Notified: Yes Date Notified: 01/04/25 Time Notified: 09:20 Method of Notification: Text Reason For Visit: UTI Diagnosis Discharge Diagnosis (1) Complicated urinary tract infection: Status: Acute Code(s): N39.0 - Urinary tract infection, site not specified (2) Debility: Status: Resolved Code(s): R53.81 - Other malaise (3) Bacteremia: Status: Acute Code(s): R78.81 - Bacteremia (4) MUNA (acute kidney injury): Status: Acute Code(s): N17.9 - Acute kidney failure, unspecified (5) Hydronephrosis, left: Status: Acute Code(s): N13.30 - Unspecified hydronephrosis (6) Essential (primary) hypertension: Status: Acute Code(s): I10 - Essential (primary) hypertension (7) Iron deficiency anemia: Status: Acute Code(s): D50.9 - Iron deficiency anemia, unspecified (8) Neuropathic pain: Status: Acute Code(s): M79.2 - Neuralgia and neuritis, unspecified (9) BPPV (benign paroxysmal positional vertigo): Status: Acute Code(s): H81.10 - Benign paroxysmal vertigo, unspecified ear Qualifiers: Laterality: unspecified laterality Qualified Code(s): H81.10 - Benign paroxysmal vertigo, unspecified ear (10) Hypokalemia: Status: Acute Code(s): E87.6 - Hypokalemia (11) BPH (benign prostatic hyperplasia): Status: Acute Code(s): N40.0 - Benign prostatic hyperplasia without lower urinary tract symptoms (12) Urinary retention: Status: Inactive Code(s): R33.9 - Retention of urine, unspecified (13) Neurogenic bladder: Status: Acute Code(s): N31.9 - Neuromuscular dysfunction of bladder, unspecified (14) Muscle spasm: Status: Acute Code(s): M62.838 - Other muscle spasm (15) Insomnia: Status: Acute Code(s): G47.00 - Insomnia, unspecified Plan 74 year old male with below past medical history hospitalized for complicated urinary tract infection 2/2 neurogenic bladder, chronic indwelling hancock catheter, left hydronephrosis, complicated by acute kidney injury, bacteremia, admitted to TCU with debility, here for rehabilitation, strengthening, prior to discharge home alone. Debility - PT/OT. Pain - Tylenol 1000mg q6 prn pain (1-3), Oxycodone 5mg q4 prn pain (4-10). Bowel - senna/colace 2 tablets bid, Magnesium citrate 300mL po daily prn. Adult immunization - Administer pneumonia vaccine, covid vaccine, flu vaccine as appropriate. DVT prophylaxis - Lovenox 40mg sc daily. Hypertension - Amlodipine 5mg daily. Recurrent UTI - Methenamine 1gm bid, Vitamin C 500mg bid. Iron deficiency anemia - Ferrous sulfate 325mg daily. Neuropathic pain - Gabapentin 900mg tid. BPPV - Meclizine 12.5mg tid prn. Hypokalemia - KCL ER 20meq daily. BPH/urinary retention - Tamsulosin 0.4mg daily, indwelling hancock catheter. Muscle spasm - Tizanidine 2mg q8 prn. Insomnia - Trazodone 100mg qhs, stable chronic director long term care use, GDR not recommended. Skin irritation - Calmoseptine topical bid. Tinea Corporis - Nystatin topical bid. Medications at Discharge Home Medications tamsulosin 0.4 mg capsule 0.4 mg PO QHS PROSTATE 03/11/23 potassium chloride 20 mEq tablet,extended release(part/cryst) 20 meq PO DAILYCM supplement 30 days #30 tabs 03/07/24 trazodone 100 mg tablet 100 mg PO QHS sleep 11/30/24 amlodipine 5 mg tablet 5 mg PO DAILY BP #1 TAB 12/05/24 gabapentin 300 mg capsule 900 mg (3 x 300 mg) PO TID Nerve pain #0 caps 12/05/24 meclizine 12.5 mg tablet 12.5 mg PO TID PRN PRN Dizziness #0 tabs 12/05/24 tizanidine 2 mg tablet 2 mg PO Q8H PRN PRN muscle strain/spasms #0 tabs 12/05/24 tolterodine 4 mg capsule,extended release 24 hr 4 mg PO DAILY Overactive bladder #0 caps 12/05/24 acetaminophen 500 mg tablet 1,000 mg (2 x 500 mg) PO Q6H PRN PRN Pain Score 1-3 #0 tabs 01/10/25 ascorbic acid (vitamin C) 500 mg tablet 500 mg PO BIDCM #0 tabs 01/10/25 enoxaparin 40 mg/0.4 mL subcutaneous syringe 40 mg (0.4 mL) subcut DAILY@0600 #0 mL 01/10/25 ferrous sulfate 325 mg (65 mg iron) tablet (FeroSul) 325 mg PO DAILY@1200 #0 tabs 01/10/25 magnesium citrate 300 ml PO DAILY PRN Constipation #0 mL 01/10/25 menthol 0.44 %-zinc oxide 20.6 % topical ointment (Calmoseptine) 1 applic topical BID #0 grams 01/10/25 methenamine hippurate 1 gram tablet 1 g PO BID #0 tabs 01/10/25 nystatin 100,000 unit/gram topical powder (Nyamyc) 1 applic topical BID #0 grams 01/10/25 oxycodone 5 mg tablet 5 mg PO Q4H PRN PRN Pain Score 4-10 3 days #18 tabs 01/10/25 sennosides 8.6 mg-docusate sodium 50 mg tablet (Stimulant Laxative Plus) 2 tab PO BID #120 tabs 01/10/25 Hospital Course Procedures Colonoscopy and EGD Summary of Care Provided Minutes Spent on Discharge: 35 Hospital Course: 74 year old male with below past medical history hospitalized for complicated urinary tract infection 2/2 neurogenic bladder, chronic indwelling hancock catheter, left hydronephrosis, complicated by acute kidney injury, bacteremia, admitted to TCU with debility, here for rehabilitation, strengthening, prior to discharge home alone. 12/28/2024 Dr. 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 Biopsied. - Medium-sized hiatal hernia. - Normal second portion of the duodenum. 12/28/2024 Dr. Ellison colonoscopy: Impressions : - Preparation of the colon was fair. - Diverticulosis in the recto-sigmoid colon, in the sigmoid colon, in the descending colon, at the splenic flexure, in the transverse colon, at the hepatic flexure and in the ascending colon. - One 8 mm polyp in the rectum, removed with a jumbo cold forceps. Resected and retrieved. - Stool in the rectum, in the sigmoid colon, at the splenic flexure and in the cecum. 01/03/2025 MRI cervical spine: IMPRESSION: 1. Advanced multilevel degenerative disc disease and spondylosis with severe central canal stenosis at C3-C4 and C5-C6 as well as moderate central canal stenosis at C4-C5 and mild central canal stenosis at C6-C7. Multilevel varying degrees of neural foraminal narrowing are identified which are mostly on a moderate to severe basis. 2. No abnormal cord signal. 01/03/2025 MRI thoracic spine: IMPRESSION: 1. No acute osseous abnormality or significant spinal stenosis. 2. Acquired [id number] multilevel foraminal narrowing, greatest at T10-T11. 01/03/2025 MRI lumbar spine: IMPRESSION: 1. Acquired multilevel spinal stenosis, greatest at L2-L3 and L3-L4 categorized as moderate. 2. Acquired multilevel foraminal narrowing, greatest at L3-L4. 3. Mild levoscoliosis. 01/04/2025 Dr. Allen (Ortho spine) Plan Reviewed MRIs of the cervical thoracic and lumbar spine as well as CT scan of the abdomen from last month. They show multilevel cervical disc degeneration with stenosis at C3-4 and C5-6 with mild cord indentation without significant cord compression or cord signal changes. Lumbar spine shows multilevel disc degeneration with evidence of prior L3-5 laminectomy. Thoracic MRI does not show any cord compression. Explained imaging findings in detail. While he does have cervical stenosis on MRI, he does not have significant cord compression causing the changes. His progressive worsening weakness with dexterity and balance loss is difficult to explain from the extent of stenosis on the MRI. I recommend evaluating for other sources of progressive weakness such as brain or peripheral neuropathy, likely from a neurology consultation as an outpatient. At this time, I would not recommend any spine surgical intervention. His right foot drop may be related to multiple hip dislocations after his hip surgeries in the past with associated possible sciatic nerve injury, however this is difficult to ascertain. He may benefit from EMG to rule out peripheral neuropathy and may be ordered by neurologist if needed. Patient is planning to move to [place] later this month. He may follow-up on a as needed basis as an outpatient. Discharge 01/13/2025 to [facility] in [place], [place], nearby daughter. Physical Exam Const alert General Appearance: cooperative HEENT normocephalic Eyes PERRL and EOMs intact bilaterally Neck supple, no JVD and no carotid bruits Resp normal respiratory effort, normal air movement and clear to auscultation bilaterally Cardio regular rate and regular rhythm GI normal to inspection, nondistended, normoactive bowel sounds, non-tender and non-distended Bladder / Kidney Exam: catheter in place urethral Extremity normal capillary refill General Extremity: Negative for edema Skin no rashes or lesions noted General Skin Exam: no breakdown Neuro moves all extremities Neuro Narrative: 4/5 bilateral upper extremity, 4/5 bilateral lower extremities. Psych affect normal Appearance: appropriate Weight / BMI Weight Weight: 94.438 kg Body Mass Index (BMI) 29.0 ABG / Lab / Microbiology Data 01/05/25 06:21 01/05/25 06:21 Microbiology: Microbiology 01/10/25 06:09 Nasal Secretion SARS-CoV-2 Antigen (Rapid) - Final 01/03/25 05:28 Nasal Secretion SARS-CoV-2 Antigen (Rapid) - Final 12/27/24 09:40 Stool Stool Occult Blood (EVANGELISTA) - Final Occult Blood Positive D/C Instructions Discharge Diet: No restrictions Discharge Activity: Return to Normal Activity, May Shower and Use Walker Weight Bearing Status: Weight bearing as tolerated Call your doctor if you observe: Fever of 101 or Higher, Inability to urinate, Inability to have a bowel movement, Shortness of breath, Dizziness, Fainting spells, Swelling in the ankles, Chest pain and Uncontrolled pain DC O2, CPAP, BIPAP Needs Home O2 Discharge instructions: No Additional Instructions: Discharge 01/13/2025 to [facility] in [place], [place], nearby daughter. Meaningful Use Info Meaningful Use Meaningful Use Diagnoses (Choose all that apply): None applicable Ischemic Stroke Statin Dosing Therapy Reference: STATIN DOSE THERAPY REFERENCE: * Patients > 75 years receive moderate or high dose statin therapy. * Patients 75 years or YOUNGER should receive HIGH intensity statin dose unless contraindicated. You will be required to document reason for non-treatment if statin daily dose does not meet guidelines. HIGH DOSE STATIN THERAPY DAILY Atorvastatin > than or = to 40 mg Rosuvastatin > than or = to 20 mg Amlodipine + Atorvastatin > than or = to 2.5/40 mg Ezetimibe + Simvastatin 10/80 mg Simvastatin 80mg Discharge Plan Admission Admit Date/Time: 12/15/24 15:23 Primary Reason for Your Visit: Debility. Attending Provider: Nhan White Chi Primary Care Provider: Corrie Marinelli Consulting Providers: Zane Allen Instructions Additional Instructions / Restrictions: Discharge 01/13/2025 to [facility] in [place], [place], nearby [facility]. Discharge Orders/Prescriptions Prescriptions: New acetaminophen 500 mg Tablet 1,000 mg PO Q6H PRN PRN (Reason: Pain Score 1-3) Qty: 0 0RF methenamine hippurate 1 gram Tablet 1 g PO BID Qty: 0 0RF ascorbic acid (vitamin C) 500 mg Tablet 500 mg PO BIDCM Qty: 0 0RF ferrous sulfate [FeroSul] 325 mg (65 mg iron) Tablet 325 mg PO DAILY@1200 Qty: 0 0RF magnesium citrate Solution 300 ml PO DAILY PRN (Reason: Constipation) Qty: 0 0RF nystatin [Nyamyc] 100,000 unit/gram Powder 1 applic topical BID Qty: 0 0RF Protocol: *Topical Application Instructions APPLICATION INSTRUCTIONS: GROIN oxycodone 5 mg Tablet 5 mg PO Q4H PRN PRN (Reason: Pain Score 4-10) 3 Days Qty: 18 0RF enoxaparin 40 mg/0.4 mL Syringe 40 mg subcut DAILY@0600 Qty: 0 0RF menthol-zinc oxide [Calmoseptine] 0.44-20.6 % Ointment 1 applic topical BID Qty: 0 0RF Protocol: *Topical Application Instructions APPLICATION INSTRUCTIONS: MALA BUTTUCKS sennosides-docusate sodium [Stimulant Laxative Plus] 8.6-50 mg Tablet 2 tab PO BID Qty: 120 0RF Continued tamsulosin 0.4 mg capsule 0.4 mg PO QHS potassium chloride 20 mEq Tablet,Er Particles/Crystals 20 meq PO DAILYCM 30 Days Qty: 30 0RF trazodone 100 mg tablet 100 mg PO QHS meclizine 12.5 mg Tablet 12.5 mg PO TID PRN PRN (Reason: Dizziness) Qty: 0 0RF gabapentin 300 mg Capsule 900 mg PO TID Qty: 0 0RF tizanidine 2 mg Tablet 2 mg PO Q8H PRN PRN (Reason: muscle strain/spasms) Qty: 0 0RF tolterodine 4 mg Capsule,Extended Release 24hr 4 mg PO DAILY Qty: 0 0RF amlodipine 5 mg tablet 5 mg PO DAILY Qty: 1 0RF Discontinued ferrous sulfate 324 mg (65 mg iron) tablet,delayed release (DR/EC) 324 mg PO DAILY lidocaine 5 % Adhesive Patch,Medicated 2 patch topical DAILY Protocol: *Topical Application Instructions APPLICATION INSTRUCTIONS: Lumbar back Rx Instructions: Lumbar back ceftriaxone 1 gram recon soln 1 g IM DAILY Qty: 1 6RF oxycodone 5 mg Tablet 5 mg PO Q4H PRN PRN (Reason: Pain Score 4-10) 3 Days Qty: 10 0RF acetaminophen 325 mg Tablet 650 mg PO Q4H PRN PRN (Reason: Fever, pain 1-10/10) Qty: 0 0RF sennosides-docusate sodium [Stimulant Laxative Plus] 8.6-50 mg Tablet 2 tab PO BID PRN PRN (Reason: Constipation) Qty: 1 0RF Referrals / Follow Up: Corrie Marinelli, DRIVER/SALES WORKERS [Primary Care Provider] - Disposition Disposition (needs filled in before D/C Order can be placed): [facility] Facility
--- NOTE | 2025-01-10 19:48 | TREXTCAR_ITS ---
Diet Diet Order/Speech Therapy: 12/28/24 15:00 Diet: Cardiac - Heart Healthy Food consistency:: Regular Liquid Consistency:: Regular/Thin Routine Orders/Code Status Code Status: Full Code DC O2, CPAP, BIPAP needs Home O2 Discharge instructions: No Wound(s) OUTER RT KNEE: Wound Type: Abrasion RT INNER CALF: Wound Type: Abrasion LT OUTTER KNEE: Wound Type: Abrasion LT BIG TOE: Wound Type: Abrasion LT 2ND TOE: Wound Type: Abrasion RT 2ND TOE: Wound Type: Abrasion Therapies Weight Bearing: Weight bearing as tolerated Extremity Affected:: Bilateral Lower and Bilateral Upper Physical Therapy: Eval and Treat Occupational Therapy: Eval and Treat Problem/Diagnosis (1) Complicated urinary tract infection: Status: Acute Code(s): N39.0 - Urinary tract infection, site not specified (2) Debility: Status: Resolved Code(s): R53.81 - Other malaise (3) Bacteremia: Status: Acute Code(s): R78.81 - Bacteremia (4) MUNA (acute kidney injury): Status: Acute Code(s): N17.9 - Acute kidney failure, unspecified (5) Hydronephrosis, left: Status: Acute Code(s): N13.30 - Unspecified hydronephrosis (6) Essential (primary) hypertension: Status: Acute Code(s): I10 - Essential (primary) hypertension (7) Iron deficiency anemia: Status: Acute Code(s): D50.9 - Iron deficiency anemia, unspecified (8) Neuropathic pain: Status: Acute Code(s): M79.2 - Neuralgia and neuritis, unspecified (9) BPPV (benign paroxysmal positional vertigo): Status: Acute Code(s): H81.10 - Benign paroxysmal vertigo, unspecified ear (10) Hypokalemia: Status: Acute Code(s): E87.6 - Hypokalemia (11) BPH (benign prostatic hyperplasia): Status: Acute Code(s): N40.0 - Benign prostatic hyperplasia without lower urinary tract symptoms (12) Urinary retention: Status: Inactive Code(s): R33.9 - Retention of urine, unspecified (13) Neurogenic bladder: Status: Acute Code(s): N31.9 - Neuromuscular dysfunction of bladder, unspecified (14) Muscle spasm: Status: Acute Code(s): M62.838 - Other muscle spasm (15) Insomnia: Status: Acute Code(s): G47.00 - Insomnia, unspecified Plan 74 year old male with below past medical history hospitalized for complicated urinary tract infection 2/2 neurogenic bladder, chronic indwelling hancock catheter, left hydronephrosis, complicated by acute kidney injury, bacteremia, a dmitted to TCU with debility, here for rehabilitation, strengthening, prior to discharge home alone. * Debility - PT/OT. * Pain - Tylenol 1000mg q6 prn pain (1-3), Oxycodone 5mg q4 prn pain (4-10). * Bowel - senna/colace 2 tablets bid, Magnesium citrate 300mL po daily prn. * Adult immunization - Administer pneumonia vaccine, covid vaccine, flu vaccine as appropriate. * DVT prophylaxis - Lovenox 40mg sc daily. * Hypertension - Amlodipine 5mg daily. * Recurrent UTI - Methenamine 1gm bid, Vitamin C 500mg bid. * Iron deficiency anemia - Ferrous sulfate 325mg daily. * Neuropathic pain - Gabapentin 900mg tid. * BPPV - Meclizine 12.5mg tid prn. * Hypokalemia - KCL ER 20meq daily. * BPH/urinary retention - Tamsulosin 0.4mg daily, indwelling hancock catheter. * Muscle spasm - Tizanidine 2mg q8 prn. * Insomnia - Trazodone 100mg qhs, stable chronic medical terminologist use, GDR not recommended. * Skin irritation - Calmoseptine topical bid. * Tinea Corporis - Nystatin topical bid. Allergies/Procedures Done in Hospital Allergies diltiazem (From Cardizem) Adverse Reaction (Verified 12/12/24 18:00) unknown losartan (From Hyzaar) Adverse Reaction (Verified 12/12/24 18:00) unknown metoprolol (From Lopressor) Adverse Reaction (Verified 12/12/24 18:00) unknown valsartan (From Diovan) Adverse Reaction (Verified 12/12/24 18:00) unknown Procedures: Colonoscopy and EGD Type of Care/Length of Stay Estimated LOS: More Than 30 Days Type of Care Needed: Intermediate Rehab Potential: Fair Prognosis: Fair Additional Orders/Day of Discharge Additional Orders: part B therapies Day of Discharge: 01/13/25 Dietary and Speech Recommendations Dietitian Recommendations/Changes: Continue Regular diet to optimize oral intakes. Discharge Plan Admission Admit Date/Time: 12/15/24 15:23 Primary Reason for Your Visit: Debility. Attending Provider: Nhan White Chi Primary Care Provider: Corrie Marinelli Consulting Providers: Zane Allen Instructions Additional Instructions / Restrictions: Discharge 01/13/2025 to [facility] in [place], [place], nearby daughter. Discharge Orders/Prescriptions Prescriptions: New acetaminophen 500 mg Tablet 1,000 mg PO Q6H PRN PRN (Reason: Pain Score 1-3) Qty: 0 0RF methenamine hippurate 1 gram Tablet 1 g PO BID Qty: 0 0RF ascorbic acid (vitamin C) 500 mg Tablet 500 mg PO BIDCM Qty: 0 0RF ferrous sulfate [FeroSul] 325 mg (65 mg iron) Tablet 325 mg PO DAILY@1200 Qty: 0 0RF magnesium citrate Solution 300 ml PO DAILY PRN (Reason: Constipation) Qty: 0 0RF nystatin [Nyamyc] 100,000 unit/gram Powder 1 applic topical BID Qty: 0 0RF Protocol: *Topical Application Instructions APPLICATION INSTRUCTIONS: GROIN oxycodone 5 mg Tablet 5 mg PO Q4H PRN PRN (Reason: Pain Score 4-10) 3 Days Qty: 18 0RF enoxaparin 40 mg/0.4 mL Syringe 40 mg subcut DAILY@0600 Qty: 0 0RF menthol-zinc oxide [Calmoseptine] 0.44-20.6 % Ointment 1 applic topical BID Qty: 0 0RF Protocol: *Topical Application Instructions APPLICATION INSTRUCTIONS: MALA BUTTUCKS sennosides-docusate sodium [Stimulant Laxative Plus] 8.6-50 mg Tablet 2 tab PO BID Qty: 120 0RF Continued tamsulosin 0.4 mg capsule 0.4 mg PO QHS potassium chloride 20 mEq Tablet,Er Particles/Crystals 20 meq PO DAILYCM 30 Days Qty: 30 0RF trazodone 100 mg tablet 100 mg PO QHS meclizine 12.5 mg Tablet 12.5 mg PO TID PRN PRN (Reason: Dizziness) Qty: 0 0RF gabapentin 300 mg Capsule 900 mg PO TID Qty: 0 0RF tizanidine 2 mg Tablet 2 mg PO Q8H PRN PRN (Reason: muscle strain/spasms) Qty: 0 0RF tolterodine 4 mg Capsule,Extended Release 24hr 4 mg PO DAILY Qty: 0 0RF amlodipine 5 mg tablet 5 mg PO DAILY Qty: 1 0RF Discontinued ferrous sulfate 324 mg (65 mg iron) tablet,delayed release (DR/EC) 324 mg PO DAILY lidocaine 5 % Adhesive Patch,Medicated 2 patch topical DAILY Protocol: *Topical Application Instructions APPLICATION INSTRUCTIONS: Lumbar back Rx Instructions: Lumbar back ceftriaxone 1 gram recon soln 1 g IM DAILY Qty: 1 6RF oxycodone 5 mg Tablet 5 mg PO Q4H PRN PRN (Reason: Pain Score 4-10) 3 Days Qty: 10 0RF acetaminophen 325 mg Tablet 650 mg PO Q4H PRN PRN (Reason: Fever, pain 1-10) Qty: 0 0RF sennosides-docusate sodium [Stimulant Laxative Plus] 8.6-50 mg Tablet 2 tab PO BID PRN PRN (Reason: Constipation) Qty: 1 0RF Referrals / Follow Up: Corrie Marinelli, [employer] TECHNICIAN [Primary Care Provider] - Disposition Disposition (needs filled in before D/C Order can be placed): Assisted Facility (9) BPPV (benign paroxysmal positional vertigo) Qualifiers: Laterality: unspecified laterality Qualified Code(s): H81.10 - Benign paroxysmal vertigo, unspecified ear
[2025-01-10 23:00] VITALS: RESP 15
[2025-01-10] MEDS: tiZANidine HCl 2 MG Tablet PO (23:01)
[2025-01-10] MEDS: Acetaminophen 500 MG Tablet 1000 MG PO (23:02)
[2025-01-10] MEDS: Tamsulosin HCl 0.4 MG Capsule PO (23:04)
[2025-01-10] MEDS: traZODone 100 MG Tablet PO (23:16)
[2025-01-11] MEDS: Gabapentin 300 MG Capsule 900 MG PO ×3 (06:08→20:40)
[2025-01-11] MEDS: Enoxaparin 40 MG/0.4 ML Syringe SC (06:08)
[2025-01-11] MEDS: Potassium Chloride Oral Tablet 20 MEQ PO (09:06)
[2025-01-11] MEDS: Ascorbic Acid 500 MG Tablet PO ×2 (09:07→16:38)
[2025-01-11] MEDS: Menthol/Lanolin/Calamine/Znox 113 GM Tube 1 APPLIC TOPICAL ×2 (09:07→20:39)
[2025-01-11] MEDS: Methenamine Hippurate 1 GM Tablet PO ×2 (09:07→20:41)
[2025-01-11] MEDS: amLODIPine 5 MG Tablet PO (09:07)
[2025-01-11] MEDS: Nystatin Powder 15gm Bottle 1 APPLIC TOPICAL ×2 (09:08→20:41)
[2025-01-11 09:13] VITALS: BP 117/81; PULSE 86; RESP 15; TEMP 36.6; O2SAT 97
[2025-01-11] MEDS: Ferrous Sulfate 325 MG Tablet PO (11:55)
--- NOTE | 2025-01-11 12:06 | CASEMGMT ---
Social Work SW completed BIMS () and PHQ-2 () for MDS assessment. Huyen Davis SEGMENTAL PAVING SUPERVISOR SET MAKING MACHINE OPERATOR
--- NOTE | 2025-01-11 14:39 | MDS.RN ---
Pain assessment for MDS complete.
[2025-01-11] MEDS: traZODone 100 MG Tablet PO (20:40)
[2025-01-11] MEDS: Tamsulosin HCl 0.4 MG Capsule PO (20:41)
[2025-01-12] MEDS: Gabapentin 300 MG Capsule 900 MG PO ×3 (05:09→20:27)
[2025-01-12] MEDS: oxyCODONE 5 MG Tablet PO (05:09)
[2025-01-12] MEDS: Enoxaparin 40 MG/0.4 ML Syringe SC (05:10)
[2025-01-12 05:51] LABS: Absolute Lymphocyte Count 1.78 X10^3/uL (0.83-4.51); Absolute Neutrophil Count 4.9 X10^3/uL (2.0-7.7); Basophil# 0.11 X10^3/uL; Basophil% 1.3 % (0-1); Eosinophil# 0.51 X10^3/uL; Eosinophils% 6.2 % (0-5); Hematocrit 38.5 % (40-54); Hemoglobin 12.6 g/dL (13.0-16.5); Lymphocyte # 1.78 X10^3/ul (0.83-4.51); Lymphocyte % 21.7 % (19-41); Mean Corp Hgb Conc 32.7 g/dL (32-36); Mean Corpuscular Volume 91.7 fL (80-94); Mean Platelet Vol. 9.4 fl (6.2-12.0); Monocyte# 0.88 X10^3/uL; Monocyte% 10.7 % (0-10); NRBC Flagged by Analyzer 0 % (0-5); Neutrophil # 4.89 X10^3/uL (2.7-7.7); Neutrophil % 59.6 % (47-70); Platelet Count 269 K/mm3 (150-450); RBC Distribution Width SD 50.4 fl (35.1-43.9); White Blood Count 8.2 K/mm3 (4.4-11.0)
[2025-01-12 08:00] VITALS: BP 104/69; PULSE 82; RESP 16; TEMP 36.8; O2SAT 94
[2025-01-12 08:08] LABS: Anion Gap 10 (5-15); BUN 17 mg/dL (7-18); BUN/Creat Ratio 16.2 RATIO (10-20); Calcium,Total 8.9 mg/dL (8.5-10.1); Chloride 108 mmol/L (98-107); Creatinine, Serum 1.05 mg/dL (0.70-1.30); EST Glomerular Filtration Rate 73 mL/min (>60); Est Glom Filt Rate - Afr Amer 89 mL/min (>60); Estimated Creatinine Clearance 71.32 ml/min; Glucose 96 mg/dL (74-106); Potassium 4.3 mmol/L (3.5-5.1); Sodium Level 139 mmol/L (136-145)
[2025-01-12] MEDS: amLODIPine 5 MG Tablet PO (08:37)
[2025-01-12] MEDS: Methenamine Hippurate 1 GM Tablet PO ×2 (08:38→20:31)
[2025-01-12] MEDS: Nystatin Powder 15gm Bottle 1 APPLIC TOPICAL ×2 (08:38→20:30)
[2025-01-12] MEDS: Menthol/Lanolin/Calamine/Znox 113 GM Tube 1 APPLIC TOPICAL ×2 (08:38→20:29)
[2025-01-12] MEDS: Potassium Chloride Oral Tablet 20 MEQ PO (08:38)
[2025-01-12] MEDS: Ascorbic Acid 500 MG Tablet PO ×2 (08:38→17:12)
[2025-01-12] MEDS: Ferrous Sulfate 325 MG Tablet PO (11:51)
[2025-01-12 13:10] VITALS: PULSE 82; RESP 16; O2SAT 94
[2025-01-12 19:00] VITALS: BP 122/85; PULSE 84; RESP 18; TEMP 36.4; O2SAT 95
[2025-01-12] MEDS: Tamsulosin HCl 0.4 MG Capsule PO (20:31)
[2025-01-12] MEDS: traZODone 100 MG Tablet PO (20:31)
[2025-01-13] MEDS: oxyCODONE 5 MG Tablet PO (00:07)
[2025-01-13] MEDS: Acetaminophen 500 MG Tablet 1000 MG PO (00:10)
[2025-01-13] MEDS: tiZANidine HCl 2 MG Tablet PO (01:50)
[2025-01-13 03:25] VITALS: PULSE 84; RESP 16; O2SAT 95
[2025-01-13] MEDS: Gabapentin 300 MG Capsule 900 MG PO (05:09)
[2025-01-13] MEDS: Potassium Chloride Oral Tablet 20 MEQ PO (08:07)
[2025-01-13] MEDS: amLODIPine 5 MG Tablet PO (08:08)
[2025-01-13] MEDS: Methenamine Hippurate 1 GM Tablet PO (08:08)
[2025-01-13] MEDS: Ascorbic Acid 500 MG Tablet PO (08:08)
[2025-01-13] MEDS: Nystatin Powder 15gm Bottle 1 APPLIC TOPICAL (08:10)
[2025-01-13] MEDS: Menthol/Lanolin/Calamine/Znox 113 GM Tube 1 APPLIC TOPICAL (08:11)
--- NOTE | 2025-01-13 11:57 | NURSING ---
Meds called in per Dr. White to hospital pharmacy for [address] to [place]. Report called to nurse [facility] at [facility].
== END 2025-01-13 11:10 | disposition skilled nursing facility (03) | DRG 949 ==
PROVIDERS: Admitting Provider Family Medicine Geriatric Medicine; PCP Clinical Nurse Specialist Adult Health; Referring Provider Family Medicine Geriatric Medicine; Visit Provider Family Medicine Geriatric Medicine
DX: T83.511D Infection and inflammatory reaction due to indwelling urethral catheter, subsequent encounter (principal); N13.6 Pyonephrosis; D50.9 Iron deficiency anemia, unspecified; I10 Essential (primary) hypertension; G62.9 Polyneuropathy, unspecified; M62.838 Other muscle spasm; E87.6 Hypokalemia; K22.70 Barrett's esophagus without dysplasia; K44.9 Diaphragmatic hernia without obstruction or gangrene; M48.02 Spinal stenosis, cervical region; K57.30 Diverticulosis of large intestine without perforation or abscess without bleeding; M41.9 Scoliosis, unspecified; K62.1 Rectal polyp; B96.4 Proteus (mirabilis) (morganii) as the cause of diseases classified elsewhere; N31.9 Neuromuscular dysfunction of bladder, unspecified; Z87.891 Personal history of nicotine dependence; G47.00 Insomnia, unspecified; N40.1 Benign prostatic hyperplasia with lower urinary tract symptoms; R33.8 Other retention of urine; Y73.1 Therapeutic (nonsurgical) and rehabilitative gastroenterology and urology devices associated with adverse incidents; Z79.899 Other long term (current) drug therapy
CPT/HCPCS: 36415; 80048; 82274; 85025; 87811; 92507; 92523; 97110; 97116; 97129; 97130; 97162; 97166; 97530; 97535; 97803; A4216

== ENCOUNTER 2024-12-28 13:30 | Day surgery (SDC) | payer MEDICARE, SELFPAY ==
[2024-12-28] VITALS (7 sets, daily range): BP systolic 118–143; BP diastolic 75–86; PULSE 67–75; RESP 16–18; TEMP 36.3–36.9; O2SAT 95–100; BMI 27.8
--- NOTE | 2024-12-28 | IMM_PTH ---
PATIENT: MIROSLAVA PALACIO LOC: EN U#:[id number] AGE/SX: 74/M ROOM: RE12/28/[address]: Dr. Arjun Ellison DO : 1950 BED: DIS: 12/28/2024 SPEC #: [id number] RECD: 01/01/25 10:59 STATUS: FRANK REQ #: [id number] HEATHER: 12/28/24 00:[address]: Arjun Ellison DEPT: IMMUNOHISTOCHEMISTRY RECD BY: Rom Sarmiento ENTERED: 01/01/25 11:00 SP TYPE: IMMUNO OTHR DR: Corrie Marinelli, DIRECTOR OF ANESTHESIA SERVICES Tissues: A - Esophagus, NOS Procedures: MSH2 (add) MLH-1 (add) MSH6 (add) Anti-PMS2 (add) KI-67 (add) P53 (add) MOC-31 (add) HER-2-RAMANA (initial) PHYSICIAN & INSTITUTION [place] [id number] SPECIMEN INFORMATION: Tissue Source: A- Distal esophagus biopsy Clinical Info: Anemia, vomiting abdominal pain, heme positive stools Specimen Number: [id number] CPT code: [id number] METHODOLOGY: Deparaffinized sections of prefer/formalin-fixed tissue or PAP/DQ stained slides are incubated with monoclonal/polyclonal antibodies/oligonucleotide probes. Localization is made via biotin free immunoperoxidase method. Appropriate controls are performed and reacted as expected. Results on target cell population are indicated in the following table: RESULTS: ANTIBODY / CLONE RESULT Block AHer-2neu (CB11) negative (1+) MOC-31 (4561) positive MLH-1 (M1) positive MSH2 (25D12) positive MSH6 (44) positive PMS2 (RHE5228) positive Ki-67 (30-9) positive, high P53 (DO-7) positive (wild type pattern) Testing for Her2 by IHC if equivocal, recommend testing for Her2 by FISH(remove/not needed) These tests were developed and their performance characteristics determined by [facility]. They may not have been cleared or approved by the U.S. Food and Drug Administration. The FDA has determined that such clearance or approval is not necessary. The above immunohistochemical/dualISH markers are ordered and reviewed by the Pathologist. INTERPRETATION: A. Distal esophagus, biopsy: Invasive adenocarcinoma. Result of Microsatellite Instability Study: Negative (no loss of mismatch protein; no microsatellite instability detected). mr 01/02/2025
--- NOTE | 2024-12-28 13:15 | COLBX_PTH ---
PATIENT: MIROSLAVA PALACIO LOC: EN U#:[id number] AGE/SX: 74/M ROOM: RE12/28/[address]: Dr. Arjun Ellison DO : 1950 BED: DIS: 12/28/2024 SPEC #: [id number] RECD: 12/29/24 11:00 STATUS: FRANK RODRIGEZAyanna #: [id number] HEATHER: 12/28/24 13:[address]: Arjun Ellison DEPT: SURGICAL PATHOLOGY RECD BY: Jay Carver ENTERED: 12/29/24 11:50 SP TYPE: COLON BX OTHR DR: Corrie Marinelli, LOADER TECHNICIAN Tissues: A - Esophagus, NOS B - Rectum, NOS Procedures: Special Stain Group I Surgery Specimen Level IV Alcian Blue/PAS (control) HEADER OPERATION: Colonoscopy, EGD and biopsy, polypectomy PRE-OP DIAGNOSIS: Anemia, vomiting abdominal pain, heme positive stools TISSUE SUBMITTED: A- Distal esophagus biopsy, B- Rectal polyp MICROSCOPIC DIAGNOSIS A. 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 See comment. B. Rectal polyp, polypectomy: Tubular adenoma. 01/01/2025 COMMENT A. Alcian blue/PAS stain with matched control is used in the evaluation of the specimen. Immunohistochemistry ([id number]) for microsatellite instability (mismatch repair of protein) will be performed, and the results will be reported separately. Case has been reviewed in consultation with Dr. Del Rosario who concurs with the above diagnosis. IDC:FA MICROSCOPIC DESCRIPTION Slides are reviewed. GROSS DESCRIPTION A. Received in fixative is one container labeled with the patient's name and designated Distal esophagus biopsy. The specimen consists of multiple irregular fragments of light fernandez soft tissue that in aggregate measure 1 x 0.5 x 0.2 cm. The specimen is totally submitted in one cassette. B. Received in fixative is one container labeled with the patient's name and designated Rectal polyp. The specimen consists of one irregular fragment of light fernandez soft tissue that measures 0.4 x 0.4 x 0.2 cm. The specimen is totally submitted in one cassette. 12/29/2024 TC:0 CPT:00384m3
--- NOTE | 2024-12-28 13:35 | HP.PCM_ITS ---
HPI - General General Date of Admission: 12/28/24 Date of Service: 12/28/24 Chief Complaint: Iron deficiency anemia HPI Narrative MIROSLAVA PALACIO, is a 74 M who presents as an outpatient from [facility] for evaluation of iron deficiency anemia. [facility] Medical History Debility Intractable back pain Neuropathic pain of both legs Chronic indwelling Hancock catheter Unable to ambulate Back pain Chest pain Vision loss of right eye Anxiety Depression GERD (gastroesophageal reflux disease) Hypertension Right femoral fracture History of fractured rib (08/12/20) Anxiety Essential (primary) hypertension Hepatitis A Osteoarthritis Home Medications ?Medication ?Instructions ?Recorded ?Last Taken ?Type tamsulosin 0.4 mg capsule 0.4 mg PO QHS PROSTATE 03/1112/27/24 History potassium chloride 20 mEq 20 meq PO DAILYCM supplement 30 03/07/24 12/27/24 Rx tablet,extended release(part/cryst) days #30 tabs ferrous sulfate 324 mg (65 mg 324 mg PO DAILY suppleme nt 09/12/24 12/27/24 History iron) tablet,delayed release trazodone 100 mg tablet 100 mg PO QHS sleep 11/30/24 12/27/24 History acetaminophen 325 mg tablet 650 mg (2 x 325 mg) PO Q4H PRN PRN 12/05/24 12/05/24 Rx Fever, pain -08/31 #0 tabs amlodipine 5 mg tablet 5 mg PO DAILY BP #1 TAB 11/2212/28/24 Rx gabapentin 300 mg capsule 900 mg (3 x 300 mg) PO TID N erve 12/05/24 12/27/24 Rx pain #0 caps lidocaine 5 % topical patch 2 patch topical DAILY pain 12/05/24 12/27/24 History meclizine 12.5 mg tablet 12.5 mg PO TID PRN PRN Dizzi ness 12/05/24 12/27/24 Rx #0 tabs sennosides 8.6 mg-docusate sodium 2 tab PO BID PRN PRN Constipation 12/05/24 Unknown Rx 50 mg tablet (Stimulant Laxative #1 TAB Plus) tizanidine 2 mg tablet 2 mg PO Q8H PRN PRN muscle 0 12/05/24 12/04/24 Rx strain/spasms #0 tabs tolterodine 4 mg capsule,extended 4 mg PO DAILY Overac tive bladder 12/05/24 12/05/24 Rx release 24 hr #0 caps ceftriaxone 1 gram solution for 1 g IM DAILY antiobiot ic #1 ea 12/15/24 Unknown Rx injection oxycodone 5 mg tablet 5 mg PO Q4H PRN PRN Pain Sco re 12/15/24 12/27/24 Rx 4-10 3 days #10 tabs Allergy/AdvReac Type Severity Reaction Status Date / Time diltiazem (From Cardizem) AdvReac unknown Verified 12/12/24 18:00 losartan (From Hyzaar) AdvReac unknown Verified 12/12/24 18:00 metoprolol (From Lopressor) AdvReac unknown Verified 12/12/24 18:00 valsartan (From Diovan) AdvReac unknown Verified 12/12/24 18:00 Family History Mother Heart disease Cancer breast Sister Heart disease Father , in a train accident. No problems noted. Surgical History History of lumbar laminectomy for spinal cord decompression History of shoulder surgery History of elbow surgery History of hip replacement Social History household members: none Smoking Status: Former smoker quit date: 11/22/92 pack-years: 46 alcohol intake: former year quit: 1991 substance use type: does not use ROS Constitutional Constitutional: Denies fatigue, fever(s), poor appetite, weight gain or weight loss Gastrointestinal Gastrointestinal: Denies belching, bloating, change in bowel habits, change in stool character, chewing difficulty, coffee ground emesis, constipation, cramping, diarrhea, dyspepsia, dysphagia, early satiety, excessive flatus, fecal incontinence, heartburn, hematemesis, hematochezia, hemorrhoids, loose stools, melena, nausea, odynophagia, rectal bleeding, tenesmus, vomiting or weight changes Physical Exam Const alert, oriented x3, no apparent distress and healthy appearing General Appearance: cooperative GI normal to inspection, nondistended, normoactive bowel sounds, soft to palpation, non-tender and non-distended Percussion: normal to percussion Rectal Exam: deferred Assessment & Plan Assessment/Plan (1) Complicated urinary tract infection: (2) Vomiting: (3) Abdominal pain: (4) Anemia: PLAN: Plan 74 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 That is a lot better. However he has had decrease in hemoglobin and his stools with fecal positive. Differential diagnosis does include peptic ulcer disease, angiodysplasia, neoplasia, gastric antral vascular ectasia, Ronnie's erosions. He should undergo an upper and lower endoscopy to evaluate upper lower GI tract. He was explained alternatives, risk and benefits include not withstanding bleeding, infection, sepsis, perforation, need for emergent urgent . He will have an ASA of 3.
--- NOTE | 2024-12-28 14:23 | PCM.POST.ANE ---
Anesthesia: Postop Eval I Current Vital Signs Temperature: 98 F Pulse Rate: 69 Blood Pressure: 118/75 Respiratory Rate: 16 Pulse Ox: 98 Oxygen Delivery Method: Room Air Assessment Airway patent: Yes Spontaneous unlabored respirations: Yes Mental status: Awake nausea: No Vomiting: No Anesthesia Complication: No Fluid Hydration Crystalloid volume administer (ml): 10 Total IV fluid infused: 10 Progress Note Anesthesia document: Postop Eval 1 completed: Yes
--- NOTE | 2024-12-28 14:45 | OP.CCLET_ITS ---
12/28/2024 Corrie Marinelli, [facility] Re : Upper GI endoscopy procedure for Norm Peralta Dear Isis This procedure was performed on December. My impressions and recommendations are as follows: Impressions : - Esophageal mucosal changes secondary to established long-segment Stevenson's disease. Biopsied. - Medium-sized hiatal hernia. - Normal second portion of the duodenum. Recommendations : - Discharge patient to a longterm. - Resume previous diet. - Continue present medications. - Await pathology results. My findings are described in the full procedure note, which is enclosed. If I can be of further assistance, please feel free to contact me at . Sincerely, Arjun Ellison, 12/28/2024 2:44:38 PM This report has been signed electronically.
--- NOTE | 2024-12-28 14:45 | OP.EGD_ITS ---
Patient Name: Norm Peralta Procedure Date: 12/28/2024 1:19 PM Date of : 1950 Age: 74 Procedure: Upper GI endoscopy Indications: Iron deficiency anemia Providers: Arjun Ellison DO Medicines: Monitored Anesthesia Care Patient Profile: This is a 74 year old male. Refer to note in patient chart for documentation of history and physical. Patient has symptoms of acute epigastric abdominal pain and acute nausea. Complications: No immediate complications. Procedure: Pre-Anesthesia Assessment: - Prior to the procedure, a History and Physical was performed, and patient medications and allergies were reviewed. The patient is competent. The risks and benefits of the procedure and the sedation options and risks were discussed with the patient. All questions were answered and informed consent was obtained. Patient identification and proposed procedure were verified by the physician. Mental Status Examination: normal. Respiratory Examination: clear to auscultation. CV Examination: normal. Prophylactic Antibiotics: The patient does not require prophylactic antibiotics. Prior Anticoagulants: The patient has taken no anticoagulant or antiplatelet agents except for NSAID medication. ASA Grade Assessment: II - A patient with mild systemic disease. After reviewing the risks and benefits, the patient was deemed in satisfactory condition to undergo the procedure. The anesthesia plan was to use monitored anesthesia care (MAC). Immediately prior to administration of medications, the patient was re-assessed for adequacy to receive sedatives. The heart rate, respiratory rate, oxygen saturations, blood pressure, adequacy of pulmonary ventilation, and response to care were monitored throughout the procedure. The physical status of the patient was re-assessed after the procedure. After obtaining informed consent, the endoscope was passed under direct vision. Throughout the procedure, the patient's blood pressure, pulse, and oxygen saturations were monitored continuously. The Colonoscope was introduced through the mouth, and advanced to the second part of duodenum. The upper GI endoscopy was accomplished without difficulty. The patient tolerated the procedure well. Scope In: 1:56:24 PM Scope Out: 2:00:53 PM Total Procedure Duration Time 0 hours 4 minutes 29 seconds Findings: There were esophageal mucosal changes secondary to established long-segment Stevenson's disease present in the distal esophagus. The maximum longitudinal extent of these mucosal changes was 5 cm in length. Mucosa was biopsied with a cold forceps for histology in a targeted manner at intervals of 1 cm in the lower third of the esophagus. One specimen bottle was sent to pathology. Verification of patient identification for the specimen was done. Estimated blood loss was minimal. A medium-sized hiatal hernia was present. The second portion of the duodenum was normal. Impression: - Esophageal mucosal changes secondary to established long-segment Stevenson's disease. Biopsied. - Medium-sized hiatal hernia. - Normal second portion of the duodenum. Recommendation: - Discharge patient to a [facility]. - Resume previous diet. - Continue present medications. - Await pathology results. Procedure Code(s): --- Professional --- 26215, Esophagogastroduodenoscopy, flexible, transoral; with biopsy, single or multiple CPT copyright 2021 [employer]. All rights reserved. The codes documented in this report are preliminary and upon supervisor hand workers review may be revised to meet current compliance requirements. Arjun Ellison DO 12/28/2024 2:44:38 PM This report has been signed electronically. Number of Addenda: 0 Note Initiated On: 12/28/2024 1:19 PM
--- NOTE | 2024-12-28 14:48 | OP.COLON_ITS ---
Patient Name: Norm Peralta Procedure Date: 12/28/2024 2:01 PM Date of : 1950 Age: 74 Procedure: Colonoscopy Indications: Iron deficiency anemia Providers: Arjun Ellison DO Medicines: Monitored Anesthesia Care Patient Profile: This is a 74 year old male. Refer to note in patient chart for documentation of history and physical. Patient has symptoms of acute epigastric abdominal pain and acute nausea. Last Colonoscopy: none. The patient's first colonoscopy is today. Complications: No immediate complications. Procedure: Pre-Anesthesia Assessment: - Prior to the procedure, a History and Physical was performed, and patient medications and allergies were reviewed. The patient is competent. The risks and benefits of the procedure and the sedation options and risks were discussed with the patient. All questions were answered and informed consent was obtained. Patient identification and proposed procedure were verified by the physician. Mental Status Examination: normal. Respiratory Examination: clear to auscultation. CV Examination: normal. Prophylactic Antibiotics: The patient does not require prophylactic antibiotics. Prior Anticoagulants: The patient has taken no anticoagulant or antiplatelet agents except for NSAID medication. ASA Grade Assessment: II - A patient with mild systemic disease. After reviewing the risks and benefits, the patient was deemed in satisfactory condition to undergo the procedure. The anesthesia plan was to use monitored anesthesia care (MAC). Immediately prior to administration of medications, the patient was re-assessed for adequacy to receive sedatives. The heart rate, respiratory rate, oxygen saturations, blood pressure, adequacy of pulmonary ventilation, and response to care were monitored throughout the procedure. The physical status of the patient was re-assessed after the procedure. After I obtained informed consent, the scope was passed under direct vision. Throughout the procedure, the patient's blood pressure, pulse, and oxygen saturations were monitored continuously. The Colonoscope was introduced through the anus and advanced to the cecum, identified by appendiceal orifice and ileocecal valve. The colonoscopy was performed without difficulty. The patient tolerated the procedure well. The quality of the bowel preparation was fair. The ileocecal valve, appendiceal orifice, and rectum were photographed. Scope In: 2:03:54 PM Scope Withdrawal Time 0 hours 6 minutes 9 seconds Scope Out: 2:13:21 PM Total Procedure Duration Time 0 hours 9 minutes 27 seconds Findings: The perianal and digital rectal examinations were normal. Multiple small and large-mouthed diverticula were found in the recto-sigmoid colon, sigmoid colon, descending colon, splenic flexure, transverse colon, hepatic flexure and ascending colon. An 8 mm polyp was found in the rectum. The polyp was sessile. The polyp was removed with a jumbo cold forceps. Resection and retrieval were complete. Verification of patient identification for the specimen was done. Estimated blood loss was minimal. Stool was found in the rectum, in the sigmoid colon, at the splenic flexure and in the cecum. Impression: - Preparation of the colon was fair. - Diverticulosis in the recto-sigmoid colon, in the sigmoid colon, in the descending colon, at the splenic flexure, in the transverse colon, at the hepatic flexure and in the ascending colon. - One 8 mm polyp in the rectum, removed with a jumbo cold forceps. Resected and retrieved. - Stool in the rectum, in the sigmoid colon, at the splenic flexure and in the cecum. Recommendation: - Discharge patient to a [place] [facility]. - Resume previous diet. - Continue present medications. - Await pathology results. - Repeat colonoscopy in 3 years for surveillance. Procedure Code(s): --- Professional --- 54278, Colonoscopy, flexible; with biopsy, single or multiple CPT copyright 2021 [employer]. All rights reserved. The codes documented in this report are preliminary and upon [employer]angel[employer] conservation laborer review may be revised to meet current compliance requirements. Arjun Ellison DO 12/28/2024 2:48:17 PM This report has been signed electronically. Number of Addenda: 0 Note Initiated On: 12/28/2024 2:01 PM
--- NOTE | 2024-12-28 14:49 | OP.CCLET_ITS ---
12/28/2024 Corrie Marinelli, [facility] Re : Colonoscopy procedure for Norm Peralta Dear Isis This procedure was performed on December. My impressions and recommendations are as follows: Impressions : - Preparation of the colon was fair. - Diverticulosis in the recto-sigmoid colon, in the sigmoid colon, in the descending colon, at the splenic flexure, in the transverse colon, at the hepatic flexure and in the ascending colon. - One 8 mm polyp in the rectum, removed with a jumbo cold forceps. Resected and retrieved. - Stool in the rectum, in the sigmoid colon, at the splenic flexure and in the cecum. Recommendations : - Discharge patient to a [facility]. - Resume previous diet. - Continue present medications. - Await pathology results. - Repeat colonoscopy in 3 years for surveillance. My findings are described in the full procedure note, which is enclosed. If I can be of further assistance, please feel free to contact me at . Sincerely, Arjun Ellison, 12/28/2024 2:48:17 PM This report has been signed electronically.
--- NOTE | 2024-12-28 15:43 | POSTOPAN2_ITS ---
Anesthesia Postop Eval I Sum Postop Eval Completion status Anesthesia document: Postop Eval 1 completed: Yes Anesthesia Postop Eval I Summary Anesthesia Postop Eval I Summary: Anesthesia Postop Eval I: Assessment Summary Airway patent Yes 12/28/24 14:24 [email or web address] Spontaneous unlabored Yes 12/28/24 14:24 LOCK [email or web address] respirations Mental status Awake 12/28/24 14:24 LOCK [email or web address] nausea No 12/28/24 14:24 LOCK [email or web address] Vomiting No 12/28/24 14:24 LOCK [email or web address] Anesthesia Postop Eval I: Fluid Summary Crystalloid volume administer 10 12/28/24 14:24 LOCK [email or web address] (ml) Colloids volume administered ( ml) Blood Product volume administered (ml) Total IV fluid infused 10 12/28/24 14:24 LOCK [email or web address] Anesthesia Postop Eval I: Summary Notes Anesthesia Complication No 12/28/24 14:24 LOCK [email or web address] Anesthesia Complication Comment: Post-operative progress note Anesthesia: Postop Eval II Evaluation Mental status: Awake and Calm Pain Level: 0 nausea: No Vomiting: No Complications Anesthesia Complication: No
--- NOTE | 2024-12-28 15:43 | PCM.POSTANE2 ---
Anesthesia Postop Eval I Sum Postop Eval Completion status Anesthesia document: Postop Eval 1 completed: Yes Anesthesia Postop Eval I Summary Anesthesia Postop Eval I Summary: Anesthesia Postop Eval I: Assessment Summary Airway patent Yes 12/28/24 14:24 COMMUNITY RELATIONS [email or web address] Spontaneous unlabored Yes 12/28/24 14:24 COMMUNITY RELATIONS [email or web address] respirations Mental status Awake 12/28/24 14:24 COMMUNITY RELATIONS [email or web address] nausea No 12/28/24 14:24 COMMUNITY RELATIONS [email or web address] Vomiting No 12/28/24 14:24 COMMUNITY RELATIONS [email or web address] Anesthesia Postop Eval I: Fluid Summary Crystalloid volume administer 10 12/28/24 14:24 COMMUNITY RELATIONS [email or web address] (ml) Colloids volume administered ( ml) Blood Product volume administered (ml) Total IV fluid infused 10 12/28/24 14:24 COMMUNITY RELATIONS [email or web address] Anesthesia Postop Eval I: Summary Notes Anesthesia Complication No 12/28/24 14:24 COMMUNITY RELATIONS [email or web address] Anesthesia Complication Comment: Post-operative progress note Anesthesia: Postop Eval II Evaluation Mental status: Awake and Calm Pain Level: 0 nausea: No Vomiting: No Complications Anesthesia Complication: No
== END 2024-12-28 14:50 | disposition home or self-care (01) ==
LOC: EN 13:32 → AC 13:33
PROVIDERS: PCP Clinical Nurse Specialist Adult Health; Referring Provider Clinical Nurse Specialist Adult Health; Visit Provider Internal Medicine Gastroenterology
PROC: 0DJD8ZZ Inspection of Lower Intestinal Tract, Via Natural or Artificial Opening Endoscopic (ICD-10-PCS; CPT 45378; principal; 2024-12-28 13:10)
DX: D50.9 Iron deficiency anemia, unspecified (principal); N39.0 Urinary tract infection, site not specified; I10 Essential (primary) hypertension; K44.9 Diaphragmatic hernia without obstruction or gangrene; K62.1 Rectal polyp; R11.10 Vomiting, unspecified; K57.30 Diverticulosis of large intestine without perforation or abscess without bleeding; Z87.891 Personal history of nicotine dependence; R10.9 Unspecified abdominal pain; Z96.649 Presence of unspecified artificial hip joint; K22.70 Barrett's esophagus without dysplasia
CPT/HCPCS: 45380; 43239; 81002; 88305; 88312; 88341; 88342; A4216

== ENCOUNTER → 2025-01-03 | Outpatient (CLI) | payer MEDICARE, SELFPAY ==
--- NOTE | 2025-01-03 09:15 | MRI_ITS ---
PROCEDURE: MRI SPINE CERVICAL (ROUTINE) REASON FOR EXAM: Weakness. Pain. TECHNIQUE: Noncontrast cervical spine MRI. COMPARISON: None. FINDINGS: Cervical vertebral bodies maintain a normal height.. There is diminished signal intensity involving the discs throughout the cervical spine related to degenerative disc disease. Multilevel disc space narrowing with endplate spurring is present which is mostly on a severe basis. There is mild retrolisthesis of C3-C4 and C5-C6. There is mild anterolisthesis of C4-C5. No acute fracture or subluxation is identified. Cervical spinal cord demonstrates a normal signal intensity and morphology. Cerebellar tonsils are within normal range. There is atrophy of the paraspinous musculature. Individual levels: C2-3: No disc herniation or central canal stenosis is present. Left neural foramina is patent. Facet arthropathy is present with moderate right neural foraminal narrowing. C3-4: Mild retrolisthesis with disc osteophyte complex results in flattening of the ventral thecal sac with severe central canal stenosis. Facet/uncovertebral changes are identified with severe bilateral neural foraminal narrowing. C4-5: Disc osteophyte complex results in flattening of the ventral thecal sac with moderate central canal stenosis. Facet/uncovertebral changes are present with moderate to severe left and moderate right neural foraminal narrowing. C5-6: Mild retrolisthesis with disc osteophyte complex results in flattening of the ventral thecal sac and severe central canal stenosis. Facet/uncovertebral changes are present with moderate to severe bilateral neural foraminal narrowing. C6-7: Disc osteophyte complex results in flattening of the ventral thecal sac with mild central canal stenosis. Facet/uncovertebral changes are present with moderate left and mild right neural foraminal narrowing. C7-T1: No disc herniation, central canal stenosis, or neural foraminal narrowing. MRI/Spine Cervical (Routine) IMPRESSION: 1. Advanced multilevel degenerative disc disease and spondylosis with severe ce ntral canal stenosis at C3-C4 and C5-C6 as well as moderate central canal stenosis at C4-C5 and mild central canal stenosis at C6- C7. Multilevel varying degrees of neural foraminal narrowing are identified which are mostly on a moderate to severe bas is. 2. No abnormal cord signal. Reading Location: [facility]
--- NOTE | 2025-01-03 10:00 | MRI_ITS ---
PROCEDURE: MRI lumbar spine without IV contrast REASON FOR EXAM: Numbness, weakness TECHNIQUE: Multisequence multiplanar MR images of the lumbar spine were obtained without the administration of intravenous contrast. COMPARISON: None. FINDINGS: Vertebral body heights are maintained. Negative for acute fracture or marrow replacement. Minimal levoscoliosis. Multilevel degenerative disc disease. Mild paraspinal muscle atrophy. No paraspinal mass. Conus medullaris is within normal limits and terminates at L1. Postsurgical change from prior laminectomies at L3-L4 and L4-L5. L1-2: Minimal posterior disc bulge. Mild bilateral facet arthrosis and ligamentum flavum hypertrophy. No significant spinal stenosis. Minimal bilateral foraminal narrowing. L2-3: Posterior disc bulge with superimposed annular fissure. Moderate bilateral facet arthrosis and ligamentum flavum hypertrophy. Moderate spinal stenosis. Mild bilateral foraminal narrowing. L3-4: Posterior disc bulge eccentric to the right. Severe bilateral facet arthrosis. Mild ligamentum flavum hypertrophy. Moderate spinal stenosis. Moderate bilateral foraminal narrowing, greater on the right. L4-5: Posterior disc bulge. Moderate/severe bilateral facet arthrosis. Mild spinal stenosis with narrowing of the lateral recesses. Mild/moderate bilateral foraminal narrowing. L5-S1: Posterior disc bulge. Moderate bilateral facet arthrosis and ligamentum flavum hypertrophy. Borderline mild spinal stenosis. Minimal bilateral foraminal narrowing. MRI/Spine Lumbar (Routine) IMPRESSION: 1. Acquired multilevel spinal stenosis, greatest at L2-L3 and L3-L4 categorized as moderate. 2. Acquired multilevel foraminal narrowing, greatest at L3-L4. 3. Mild levoscoliosis. Reading Location: [facility]
--- NOTE | 2025-01-03 10:45 | MRI_ITS ---
PROCEDURE: MRI thoracic spine without IV contrast REASON FOR EXAM: Weakness TECHNIQUE: Multisequence multiplanar MR images of the thoracic spine were obtained without the administration of intravenous contrast. COMPARISON: None. FINDINGS: Accentuated thoracic kyphosis. Alignment is otherwise within normal limits. Mild chronic compression deformity of the midthoracic spine. Multilevel Schmorl's nodes. No focal bone marrow edema or marrow replacement. Spinal cord is of normal caliber, contour and signal intensity. No paraspinal mass. Small multilevel posterior disc bulges/disc osteophyte complexes without significant spinal stenosis. Multilevel facet arthropathy. Acquired [id number] multilevel foraminal narrowing predominantly due to facet arthropathy, and greatest at T10-T11 on the right. MRI/Spine Thoracic (Routine) IMPRESSION: 1. No acute osseous abnormality or significant spinal stenosis. 2. Acquired [id number]-df-[id number] multilevel foraminal narrowing, greatest at T10-T1 1. Reading Location: [facility]
== END | disposition home or self-care (01) ==
PROVIDERS: PCP Clinical Nurse Specialist Adult Health; Referring Provider Family Medicine Geriatric Medicine; Visit Provider Family Medicine Geriatric Medicine
DX: R53.1 Weakness (principal)
CPT/HCPCS: 72141; 72146; 72148

== ENCOUNTER 2025-01-14 02:04 | Emergency (ER) | payer MEDICARE, SELFPAY ==
[2025-01-14 02:05] VITALS: BP 114/83; PULSE 78; RESP 18; TEMP 36.6; O2SAT 94; BMI 30.7
--- NOTE | 2025-01-14 03:27 | EDS_ITS ---
HPI History of Present Illness Chief Complaint: Dowling C/O Informant: patient Narrative Narrative: Patient is a 74-year-old male with history of hypertension hyperlipidemia anxiety depression and neurogenic bladder requiring chronic Dowling catheterization. Patient states that a few hours prior to arrival his catheter just stopped draining. He states that there is no trauma to the area or pulling on the catheter however he is now developing abdominal pain and has concern that he has urinary retention and therefore was sent in for evaluation. [facility] Medical History Debility Intractable back pain Neuropathic pain of both legs Chronic indwelling Dowling catheter Unable to ambulate Back pain Chest pain Vision loss of right eye Anxiety Depression GERD (gastroesophageal reflux disease) Hypertension Right femoral fracture History of fractured rib (08/12/20) Anxiety Essential (primary) hypertension Hepatitis A Osteoarthritis Home Medications ?Medication ?Instructions ?Recorded ?Last Taken ?Type tamsulosin 0.4 mg capsule 0.4 mg PO QHS PROSTATE 03/1112/27/24 History potassium chloride 20 mEq 20 meq PO DAILYCM supplement 30 03/07/24 12/27/24 Rx tablet,extended release(part/cryst) days #30 tabs amlodipine 5 mg tablet 5 mg PO DAILY BP #1 TAB 11/2212/28/24 Rx gabapentin 300 mg capsule 900 mg (3 x 300 mg) PO TID N erve 12/05/24 12/27/24 Rx pain #0 caps meclizine 12.5 mg tablet 12.5 mg PO TID PRN PRN Dizzi ness 12/05/24 12/27/24 Rx #0 tabs tizanidine 2 mg tablet 2 mg PO Q8H PRN PRN muscle 0 12/05/24 12/04/24 Rx strain/spasms #0 tabs tolterodine 4 mg capsule,extended 4 mg PO DAILY Overac tive bladder 12/05/24 12/05/24 Rx release 24 hr #0 caps acetaminophen 500 mg tablet 1,000 mg (2 x 500 mg) PO Q 6H PRN 01/10/25 Unknown Rx PRN Pain Score 1-3 #0 tabs ascorbic acid (vitamin C) 500 mg 500 mg PO BIDCM #0 ta bs 01/10/25 Unknown Rx tablet ferrous sulfate 325 mg (65 mg 325 mg PO DAILY@1200 #0 tabs 01/10/25 Unknown Rx iron) tablet (FeroSul) magnesium citrate 300 ml PO DAILY PRN Constipa tion 01/10/25 Unknown Rx #0 mL menthol 0.44 %-zinc oxide 20.6 % 1 applic topical BID #0 grams 01/10/25 Unknown Rx topical ointment (Calmoseptine) methenamine hippurate 1 gram tablet 1 g PO BID #0 tabs 01/10/25 Unknown Rx nystatin 100,000 unit/gram topical 1 applic topical BI D #0 grams 01/10/25 Unknown Rx powder (Nyamyc) oxycodone 5 mg tablet 5 mg PO Q4H PRN PRN Pain Sco re 01/10/25 Unknown Rx 4-10 3 days #18 tabs sennosides 8.6 mg-docusate sodium 2 tab PO BID #120 ta bs 01/10/25 Unknown Rx 50 mg tablet (Stimulant Laxative Plus) methenamine hippurate 1 gram tablet 1 g PO BID 5 days #10 tabs 01/13/25 Unknown Rx sennosides 8.6 mg-docusate sodium 2 tab-cap (2 x 8.6-5 0 mg) PO BID 5 01/13/25 Unknown Rx 50 mg tablet (Senna with Docusate days #20 tabs Sodium) tamsulosin 0.4 mg capsule 0.4 mg PO QHS 5 days #5 caps 01/13/25 Unknown Rx tizanidine 2 mg capsule 2 mg PO Q8H PRN muscle spast icity 01/13/25 Unknown Rx 5 days #20 caps trazodone 100 mg tablet 100 mg PO QHS 5 days #5 tabs 01/13/25 Unknown Rx Allergy/AdvReac Type Severity Reaction Status Date / Time diltiazem (From Cardizem) AdvReac unknown Verified 01/14/25 02:05 losartan (From Hyzaar) AdvReac unknown Verified 01/14/25 02:05 metoprolol (From Lopressor) AdvReac unknown Verified 01/14/25 02:05 valsartan (From Diovan) AdvReac unknown Verified 01/14/25 02:05 Family History Mother Heart disease Cancer breast Sister Heart disease Father , in a train accident. No problems noted. Surgical History History of lumbar laminectomy for spinal cord decompression History of shoulder surgery History of elbow surgery History of hip replacement Social History household members: none Smoking Status: Former smoker quit date: 11/22/92 pack-years: 46 alcohol intake: former year quit: 1991 substance use type: does not use ROS ROS ED Constitutional Constitutional ED: Denies chills or fever(s) ENT ENT ED: Denies sore throat Cardiovascular Cardiovascular: Denies chest pain Respiratory/Chest Respiratory/Chest: Denies cough or dyspnea Gastrointestinal Gastrointestinal: Reports abdominal pain; Denies diarrhea, nausea or vomiting Musculoskeletal Musculoskeletal: Denies back pain Integumentary Denies rash Neurologic Neurologic: Denies headache(s) Hematologic/Lymphatic Hematologic/Lymphatic: Denies easy bleeding or easy bruising EXAM Physical Exam Const Vital Signs: 01/14/25 02:05 Temperature 97.8 F Temperature Source Oral Pulse Rate 78 Respiratory Rate 18 Blood Pressure 114/83 H Blood Pressure Mean 93 Pulse Ox 94 Oxygen Delivery Method Room Air Positive well nourished and well developed General Appearance ED: well developed HEENT HEENT Narrative: Normocephalic atraumatic Eyes PERRL and EOMs intact bilaterally Neck supple Resp normal respiratory effort and clear to auscultation bilaterally Cardio regular rate and regular rhythm GI GI Narrative: In the suprapubic/lower midline abdomen there is organomegaly with firmness and tenderness to palpation consistent with a distended bladder. The remaining of the exam is soft and nontender and nondistended with hypoactive bowel sounds Narrative: Dowling catheter in place. There is no blood or discharge around the urethral meatus. There is no active urine within the Dowling catheter tube. No testicular masses or swelling. No surrounding soft tissue changes to suggest Elisha's gangrene Neuro oriented x3 and CN's II-XII intact bilaterally Sensorium / Orientation: alert Psych mental status grossly normal Skin no rashes or lesions noted MDM MDM MDM Narrative Medical decision making narrative: Patient presented to the ER with stable vitals and history of neurogenic bladder requiring chronic catheterization. The Dowling catheter is not draining consistent with the patient's report and he has organomegaly in the suprapubic region indicating urinary retention. As his symptoms have only been ongoing for a few hours concern for obstructive nephropathy leading to acute kidney injury and/or a secondary infection/UTI is low and I do not feel the need for testing. Initially we attempted to flush the Dowling catheter as it was most likely due to sediment plugging the tube that it was not draining. However despite this there was no improvement so therefore the Dowling catheter was exchanged and following this there is clear yellow urine in the catheter and the patient's abdominal pain and organomegaly has resolved indicating resolution of the acute retention. Therefore there is no need for further workup and he is otherwise safe for discharge History & Record Review Discussion w/independent historian: Patient Discharge Plan Triage Chief Complaint: Dowling C/O ED Provider: Luis Angel Whitney Dx/Rx/DC Orders Clinical Impression: Acute on chronic urinary retention, Essential (primary) hypertension, Neurogenic bladder Instructions: ED Dowling Catheter, Care, ED Urinary Retention, Male Prescriptions: No Action tamsulosin 0.4 mg capsule 0.4 mg PO QHS potassium chloride 20 mEq Tablet,Er Particles/Crystals 20 meq PO DAILYCM 30 Days Qty: 30 0RF meclizine 12.5 mg Tablet 12.5 mg PO TID PRN PRN (Reason: Dizziness) Qty: 0 0RF gabapentin 300 mg Capsule 900 mg PO TID Qty: 0 0RF tizanidine 2 mg Tablet 2 mg PO Q8H PRN PRN (Reason: muscle strain/spasms) Qty: 0 0RF tolterodine 4 mg Capsule,Extended Release 24hr 4 mg PO DAILY Qty: 0 0RF amlodipine 5 mg tablet 5 mg PO DAILY Qty: 1 0RF acetaminophen 500 mg Tablet 1,000 mg PO Q6H PRN PRN (Reason: Pain Score 1-3) Qty: 0 0RF methenamine hippurate 1 gram Tablet 1 g PO BID Qty: 0 0RF ascorbic acid (vitamin C) 500 mg Tablet 500 mg PO BIDCM Qty: 0 0RF ferrous sulfate [FeroSul] 325 mg (65 mg iron) Tablet 325 mg PO DAILY@1200 Qty: 0 0RF magnesium citrate Solution 300 ml PO DAILY PRN (Reason: Constipation) Qty: 0 0RF nystatin [Nyamyc] 100,000 unit/gram Powder 1 applic topical BID Qty: 0 0RF Protocol: *Topical Application Instructions APPLICATION INSTRUCTIONS: GROIN oxycodone 5 mg Tablet 5 mg PO Q4H PRN PRN (Reason: Pain Score 4-10) 3 Days Qty: 18 0RF menthol-zinc oxide [Calmoseptine] 0.44-20.6 % Ointment 1 applic topical BID Qty: 0 0RF Protocol: *Topical Application Instructions APPLICATION INSTRUCTIONS: MALA BUTTUCKS sennosides-docusate sodium [Stimulant Laxative Plus] 8.6-50 mg Tablet 2 tab PO BID Qty: 120 0RF methenamine hippurate 1 gram tablet 1 g PO BID 5 Days Qty: 10 0RF sennosides-docusate sodium [Senna with Docusate Sodium] 8.6-50 mg tablet 2 tab-cap PO BID 5 Days Qty: 20 0RF tamsulosin 0.4 mg capsule 0.4 mg PO QHS 5 Days Qty: 5 0RF tizanidine 2 mg capsule 2 mg PO Q8H PRN (Reason: muscle spasticity) 5 Days Qty: 20 0RF trazodone 100 mg tablet 100 mg PO QHS 5 Days Qty: 5 0RF Primary Care Provider: Corrie Marinelli Referrals: Corrie Marinelli PIANO TECHNICIAN [Primary Care Provider] - Fan Slater MD [Med Staff - Active Staff] - Print Language: Nauruan Disposition Disposition: Home, Self Care Discharge Date/Time: 01/14/25 03:59
[2025-01-14 03:30] VITALS: BP 91/67; PULSE 73; RESP 16; TEMP 36.6; O2SAT 95
== END 2025-01-14 03:59 | disposition home or self-care (01) ==
PROVIDERS: Emergency Provider Emergency Medicine; PCP Clinical Nurse Specialist Adult Health; Visit Provider Emergency Medicine
DX: N31.9 Neuromuscular dysfunction of bladder, unspecified (principal); I10 Essential (primary) hypertension; R33.9 Retention of urine, unspecified; Z87.891 Personal history of nicotine dependence; E78.5 Hyperlipidemia, unspecified; Z79.899 Other long term (current) drug therapy; Z96.649 Presence of unspecified artificial hip joint
CPT/HCPCS: 51702; 99285